=== PATIENT | female | born 1990 | race Caucasian/White ===

== ENCOUNTER 2018-01-24 16:13 | Emergency (ER) | payer MEDICAID, SELFPAY ==
[2018-01-24 16:14] VITALS: BP 131/93; PULSE 78; RESP 18; TEMP 36.8; O2SAT 100; BMI 23.2
[2018-01-24 16:43] VITALS: TEMP 37
--- NOTE | 2018-01-24 16:45 | ED.VISSUMM ---
- ER Visit Summary Date of Service: 01/24/18 Chief Complaint: Per mother dysuria, right flank pain with rash History of Present Illness: The patient is a 27 F who has history of MRDD, cerebral palsy on a portable ventilator was brought to the ER because of pain/discomfort with urination and left flank pain with red rash. Mother states her face being flushed is normal when she is anxious. History is limited since and is nonverbal and vent dependent. Past medical history UTI, pneumonia, cellulitis, cerebral palsy, MRDD, seizure disorder and pseudomembranous enterocolitis. Past surgical history remarkable for Mckeon rods, baclofen pump, TNA, G-tube and tracheostomy Physical Examination: Vital signs are marked for slight elevation blood pressure 131/93. Days has a cushingoid type appearance. She does have nystagmus. Pupils are enlarged and reactive. Kos is moist. TMs normal. Trach is in proper position. Lungs reveal no wheeze, rales or rhonchi. Heart is regular. Abdomen is soft and apparently nontender. She grimaces per mom when the left flank area was palpated. There is a warm erythematous rash. There is no induration, fluctuance appreciated. Neuro exam is limited. Test Results: CBC is normal. BMP is unremarkable. There is slight decrease in sodium and chloride of 1 3393 respectively. Glucose is slightly elevated at 116. UA is negative. Emergency Department Course and Treatment: A rectal temp was obtained and is 90.6. Concern she has cellulitis of her back and possible urinary tract infection. Cath urine was ordered and appropriate blood work to determine if patient will require admission versus outpatient treatment. Treatment Plan: Since patient does not have any service criteria. No she has cellulitis will treat with Septra suspension and discharge to home with follow-up with Dr. Bermudez in 2-3 days. Disposition: Discharged to home Impression: 1. Cellulitis left flank region 2. Dysuria of unknown etiology 3. History of MRDD 4. History of Propulsid 5. History of chronic respiratory failure on ventilator This note was generated with [employer] dictation software. It may contain incorrect words, spelling, and punctuation that were not noted in review of the chart prior to signing ED Disposition - Plan for ED Patient: Disposition: Home or Assisted Living Chief Complaint: Complaint Instructions: ED Dysuria Uncertain Cause, ED Infec Skin Cellulitis Prescriptions: Smz/Tpm Suspension [Bactrim Suspension 800-160mg/20ml] 20 ml PO BID #280 ml Phenazopyridine HCl [Pyridium] 200 mg GT TID #10 tab Referrals: Sandra Bermudez DO [Primary Care Provider] - 3-5 Days Additional Instructions: Lesa prescription was electronically transmitted to [facility], your preferred pharmacy
--- NOTE | 2018-01-24 16:48 | ED.DCSUM_ITS ---
- ER Visit Summary Date of Service: 01/24/18 Chief Complaint: Per mother dysuria, right flank pain with rash History of Present Illness: The patient is a 27 F who has history of MRDD, cerebral palsy on a portable ventilator was brought to the ER because of pain/ discomfort with urination and left flank pain with red rash. Mother states her face being flushed is normal when she is anxious. History is limited since and is nonverbal and vent dependent. Past medical history UTI, pneumonia, cellulitis, cerebral palsy, MRDD, seizure disorder and pseudomembranous enterocolitis. Past surgical history remarkable for Mckeon rods, baclofen pump, TNA, G- tube and tracheostomy Physical Examination: Vital signs are marked for slight elevation blood pressure 131/93. Days has a cushingoid type appearance. She does have nystagmus. Pupils are enlarged and reactive. Kos is moist. TMs normal. Trach is in proper position. Lungs reveal no wheeze, rales or rhonchi. Heart is regular. Abdomen is soft and apparently nontender. She grimaces per mom when the left flank area was palpated. There is a warm erythematous rash. There is no induration, fluctuance appreciated. Neuro exam is limited. Test Results: CBC is normal. BMP is unremarkable. There is slight decrease in sodium and chloride of 1 3393 respectively. Glucose is slightly elevated at 116. UA is negative. Emergency Department Course and Treatment: A rectal temp was obtained and is 90.6. Concern she has cellulitis of her back and possible urinary tract infection. Cath urine was ordered and appropriate blood work to determine if patient will require admission versus outpatient treatment. Treatment Plan: Since patient does not have any service criteria. No she has cellulitis will treat with Septra suspension and discharge to home with follow- up with Dr. Bermudez in 2-3 days. Disposition: Discharged to home Impression: 1. Cellulitis left flank region 2. Dysuria of unknown etiology 3. History of MRDD 4. History of Propulsid 5. History of chronic respiratory failure on ventilator This note was generated with [employer] dictation software. It may contain incorrect words, spelling, and punctuation that were not noted in review of the chart prior to signing ED Disposition - Plan for ED Patient: Disposition: Home or Assisted Living Chief Complaint: Complaint Instructions: ED Dysuria Uncertain Cause, ED Infec Skin Cellulitis Prescriptions: Smz/Tpm Suspension [Bactrim Suspension 800-160mg/20ml] 20 ml PO BID #280 ml Phenazopyridine HCl [Pyridium] 200 mg GT TID #10 tab Referrals: Sandra Bermudez DO [Primary Care Provider] - 3-5 Days Additional Instructions: Lesa prescription was electronically transmitted to [facility], your preferred pharmacy
[2018-01-24 16:57] LABS: Absolute Lymphocyte Count 1.52 X10^3/ul (0.83-4.51); Absolute Neutrophil Count 3.6 X10^3/uL (2.0-7.7); Basophil# 0.02 X10^3/uL; Basophil% 0.3 % (0-1); Eosinophils% 1.7 % (0-5); Hematocrit 39.9 % (37-47); Hemoglobin 13.5 g/dl (12.0-15.0); Lymphocyte # 1.52 X10^3/ul (4.0); Lymphocyte % 25.4 % (19-41); Mean Corp Hgb Conc 33.8 g/gl (32-36); Mean Corpuscular Volume 94.5 fL (81-99); Mean Platelet Vol. 10.7 fl (6.2-12.0); Monocyte# 0.74 X10^3/uL; Monocyte% 12.4 % (0-10); Neutrophil # 3.58 X10^3/uL (2.7-7.7); Neutrophil % 59.9 % (47-70); Platelet Count 202 K/mm3 (150-450); RBC Distribution Width SD 40.7 fl (35.1-43.9); Red Blood Count 4.22 M/mm3 (4.2-5.4)
[2018-01-24 16:58] LABS: POSITIVE COUNT NO; POSITIVE DIFFERENTIAL NO; POSITIVE MORPHOLOGY NO
[2018-01-24 17:04] LABS: Bacteria 0 SEEN /hpf (None Seen); Mucous, Urine 0 SEEN /hpf (<or=2+); White Blood Cells 0 SEEN /hpf (0-5)
[2018-01-24 17:15] LABS: Color, Urine Yellow (Yellow); Glucose, Dipstick 250 mg/dl (Normal); Ketone-Dipstick 5 mg/dl (Negative); Leukocyte Esterase-Dipstick Negative /ul (Negative); Nitrite-Dipstick Negative (Negative); Occult Blood-Urine Negative /ul (Negative); Protein-Dipstick Negative (Negative); Specific Gravity, Urine 1.015 (1.002-1.030); Urine Bilirubin Dipstick Negative (Negative); Urine Clarity Clear (Clear); Urine Urobilinogen Normal (Normal)
[2018-01-24 17:23] LABS: Red Blood Cells-Urine 0-5 SEEN /hpf (0-5); Squamous Epithelial Cells - UA 0-5 SEEN /hpf (5-10)
[2018-01-24 17:27] LABS: Anion Gap 8 (5-15); BUN 10 mg/dL (7-18); BUN/Creat Ratio 20.8 RATIO (10-20); Calcium,Total 9.2 mg/dL (8.5-10.1); Chloride 97 mmol/L (98-107); Creatinine, Serum 0.48 mg/dL (0.55-1.02); EST Glomerular Filtration Rate 164 mL/min (>60); Est Glom Filt Rate - Afr Amer 198 mL/min (>60); Estimated Creatinine Clearance 126.06 ml/min; Glucose 116 mg/dL (74-106); Potassium 4.3 mmol/L (3.5-5.1); Sodium Level 133 mmol/L (136-145)
[2018-01-24 18:15] VITALS: BP 130/64; PULSE 77; RESP 18; O2SAT 99
--- NOTE | 2018-01-24 18:33 | ED.RN ---
DR CRESPO NOTIFIED OF LACTIC RESULTS
[2018-01-24 19:10] VITALS: BP 117/63
[2018-01-24] MEDS: SMZ/TPM Suspension 23 ML GT (19:29)
[2018-01-24 21:55] LABS: Reflex Lactate? Y
== END 2018-01-24 20:56 | disposition home or self-care (01) ==
PROVIDERS: Emergency Provider Emergency Medicine; Family Provider Internal Medicine; PCP Internal Medicine
DX: L03.311 Cellulitis of abdominal wall (principal); R30.0 Dysuria; F79 Unspecified intellectual disabilities; J96.10 Chronic respiratory failure, unspecified whether with hypoxia or hypercapnia; G80.9 Cerebral palsy, unspecified; G40.909 Epilepsy, unspecified, not intractable, without status epilepticus; A04.72 Enterocolitis due to Clostridium difficile, not specified as recurrent; Z87.440 Personal history of urinary (tract) infections; Z79.51 Long term (current) use of inhaled steroids; Z79.899 Other long term (current) drug therapy
CPT/HCPCS: 51702; 80048; 81001; 83605; 85025; 99285; A4216

== ENCOUNTER 2018-07-25 09:00 | Outpatient (RCR) | payer MEDICAID, SELFPAY | END 2018-08-12 23:59 | LOC: NS 09:00 | PROVIDERS: Family Provider Internal Medicine; PCP Internal Medicine; Visit Provider Internal Medicine | DX: E11.9 Type 2 diabetes mellitus without complications (principal); Z71.3 Dietary counseling and surveillance | CPT/HCPCS: 97802; 97803 ==

== ENCOUNTER 2018-08-22 09:00 | Outpatient (RCR) | payer MEDICAID, SELFPAY ==
[2018-05-25 12:59] VITALS: BMI 23.2
--- NOTE | 2018-08-29 18:37 | NS ---
On 08/25/18 Mom reported Lsea seemed bloated with firmness in abdomen - private duty nurse held 6:00 p.m. Nourish enteral tube feeding providing instead a 320 cc water flush. On 08/26/18 Mom reported Lesa seemed better. Family made decision to return to previous enteral feeding NeoCate Jr. providing 290 mL over 1 hour via pump at 8:00 a.m., 12:00 noon and 4:00 p.m. also providing 300 mL water flushes between feedings bolus. Will meet with family mid September to discuss any future changes to increase dietary fiber. SMBG reported today: FBG 120 mg/dL and 2 hr pp 146-235 mg/dL Current insulin: Lantus 14 units in a.m. and p.m and 12 units Humalog before each of 3 feedings. Family continues to give pediatric liquid multivitamin. I stopped at family home this morning for home visit. No one answered door - called Mom's phone - no answer - RDN left. Mom called office several hours later reporting she was gone - had family emergency. We rescheduled home visit for 09/26/18. Abena Epperson, KAYLEN,LD,CDE
--- OUTSIDE RECORDS SUMMARY | 2018-10-08 11:17 | XMS RPT_ITS | Continuity of Care Document ---
:1990 Author Organization [facility] Address [address] [place] [address] Phone Care Team Providers Name Role Phone Sandra Bermudez DO Unavailable Flip Delgado Unavailable Lawrence Weiner Unavailable Abdirahman Valencia MD Unavailable KIMI Pineda Unavailable Unavailable Unavailable Unavailable Problems Name Dates Details Abnormal urine (R82.90, 791.9) Status: Active ALLERGIC RHINITIS DUE TO OTHER ALLERGEN (J30.89, 477.8) Comments: using benadryl. claritin doesnt help . try nasal spray Status: Active Amenorrhea (N91.2, 626.0) Status: Active Body mass index (BMI) 22.0-22.9, adult (Z68.22, V85.1) Status: Active Cerebral palsy (G80.9, 343.9) Status: Active Convulsions (R56.9, 780.39) Comments: neurologist: Dr Kebede, 1 year agodischarged her bc age and he is pediatric neuro-- now seeing DR Delgado Status: Active Current nonsmoker (Renamed from Current non-smoker) (Z78.9, V49.89) Status: Active Diabetes (E11.9, 250.00) Status: Active Encounter for screening for lipid disorder (Z13.220, V77.91) Status: Active Fatigue (R53.83, 780.79) Comments: Improvedfatigue improved after tretaing PNA and C diff, no more fatigue Status: Active History of cerebral palsy (Z86.69, V12.49) Status: Active History of respiratory acidosis (Z86.39, V12.29) Status: Active Hyperglycemia (R73.9, 790.29) Status: Active Irregular Menstrual Cycle (Renamed from Irregular bleeding) (N92.6, 626.4) Comments: no menstrual cycle in the last 2 months. Status: Active Lactic acid acidosis (E87.2, 276.2) Status: Active MH (mental handicap) (F79, 319) Comments: MR/CP Status: Active NEED FOR PROPHYLACTIC VACCINATION AND INOCULATION AGAINST INFLUENZA (V04.81) (Renamed from Need for prophylactic vaccination and inoculation against influenza) (Z23, V04.81) Status: Active Neuromuscular scoliosis (M41.40, 737.43) Status: Active Nutritional assessment (Z00.8, V72.85) Status: Active Paraplegia (G82.20, 344.1) Status: Active Pre-operative examination (Z01.818, V72.84) Status: Active Sore throat (J02.9, 462) Status: Active Therapeutic drug monitoring (Z51.81, V58.83) Status: Active Therapeutic drug monitoring (Z51.81, V58.83) Status: Active Thick sputum (R09.3, 786.4) Status: Active Tracheostomy status (Z93.0, V44.0) Status: Active Type II diabetes mellitus, well controlled (E11.9, 250.00) Status: Active Unspecified Diagnosis Status: Active Unspecified Diagnosis Status: Active Unspecified Diagnosis Status: Active Unspecified Diagnosis Status: Active Unspecified Diagnosis Status: Active Unspecified visual disturbance (H53.9, 368.9) Status: Active Vitamin D deficiency (E55.9, 268.9) Status: Active Medications Name Dates Details Acidophilus Oral Capsule 1 (one) Capsule qd via peg tube admin for 0 days Quantity: 30 {Capsule} Refills: 3 Ordered:04-Jul-2018 Karin Bermudez DO, DO, Kathleen Start : 04-Jul-2018 Active AeroChamber Mini Chamber Device 1 (one) Device Device uad for 0 days Quantity: 1 {Each} Refills: 0 Ordered:31-May-2017 Daisy Pineda LPN Start : 31-May-2017 Active Comments:use with her flovent Baclofen Powder 3 ml tid with tube feed for 90 days Quantity: 810 {Milliliter} Refills: 5 Ordered:14-Mar-2018 Karin Bermudez DO, DO, Kathleen Start : 14-Mar-2018 Active Comments:10mg/ml Blood Glucose Monitor System w/Device Kit 1 (one) Kit Kit uad for 0 days Quantity: 1 {Box} Refills: 0 Ordered:10-Jun-2018 Daisy Pineda LPN Start : 10-Jun-2018 Active Comfort Lancets Miscellaneous 1 (one) Misc Misc bid for 0 days Quantity: 1 {Box} Refills: 12 Ordered:10-Jun-2018 Daisy Pineda LPN Start : 10-Jun-2018 Active DiazePAM 1 MG/ML Oral Solution 5 Milliliter bid and 7ml q hs for 0 days Quantity: 500 {Milliliter} Refills: 5 Ordered:04-Jul-2018 Karin Bermudez DO, DO, Kathleen Start : 04-Jul-2018 Active EasyGluco Plus In Vitro Strip 1 (one) Strip Strip bid for 30 days Quantity: 100 {Strip} Refills: 11 Ordered:13-Jun-2018 Daisy Pineda LPN Start : 13-Jun-2018 Active Comments:healthpro test strips Flovent HFA 44 MCG/ACT Inhalation Aerosol 2 puffs Aerosol twice daily via trach for 0 days Quantity: 1 {Inhaler} Refills: 6 Ordered:30-Mar-2018 Karin Bermudez DO, DO, Kathleen Start : 30-Mar-2018 Active Fluticasone Propionate 50 MCG/ACT Nasal Suspension 2 (two) [employer]) each nostril qd for 90 days Quantity: 1 {QS} Refills: 3 Ordered:16-Sep-2017 Karin Bermudez DO, DO, Kathleen Start : 16-Sep-2017 Active HumaLOG KwikPen 100 UNIT/ML Subcutaneous Solution Pen-injector 12 Unit with meals for 30 days Quantity: 1 {Pre-filled_Pen_Syringe} Refills: 5 Ordered:08-Aug-2018 Fast DO Jennifer A Start : 08-Aug-2018 Active Lantus SoloStar 100 UNIT/ML Subcutaneous Solution Pen-injector 12 Unit bid for 30 days Quantity: 1 {Box} Refills: 3 Ordered:08-Aug-2018 Jennifer Silvestre DO Start : 08-Aug-2018 Active Miconazole Nitrate 2 % External Cream 1 (one) Cream Cream three times daily for 10 days Quantity: 1 {Tube} Refills: 1 Ordered:14-May-2016 Daisy Pineda LPN Start : 14-May-2016 Active Multivitamin+ Oral Liquid 1 (one) Milliliter qd for 0 days Quantity: 1 {Milliliter} Refills: 12 Ordered:28-Jul-2018 Daisy Pineda LPN Start : 28-Jul-2018 Active Comments:give proper dosing for weight NAPHCON-A, 0.025-0.3% (Ophthalmic Solution) 1-2 gtt gtt up to qid prn for redness/itching for 0 days Quantity: 1 {Each} Refills: 0 Ordered:20-Jan-2016 Linda Houston MD Start : 20-Jan-2016 Active Nyamyc 489769 UNIT/GM External Powder uad Powder to affected area(s) bid and prn for 0 days Quantity: 15 {Bottle} Refills: 6 Ordered:19-Nov-2017 Karin Bermudez DO, DO, Kathleen Start : 19-Nov-2017 End : 17-Nov-2013 Active Nystatin 045863 UNIT/GM External Cream uad Cream to affected area(s) bid prn for 7 days Quantity: 1 {Bottle} Refills: 3 Ordered:03-Jun-2018 Karin Bermudez DO, DO, Kathleen Start : 03-Jun-2018 Active Nystatin 189933 UNIT/ML Mouth/Throat Suspension 5 ml ml 5 times day for 10 days Quantity: 250 {Milliliter} Refills: 9 Ordered:03-Apr-2016 Jessica Almanza LPN Start : 03-Apr-2016 Active Nystatin Powder 1 Powder Powder tid for 10 days Quantity: 1 {Bottle} Refills: 3 Ordered:28-Jun-2017 Karin Bermudez DO, DO, Kathleen Start : 28-Jun-2017 Active Pen Lubec 31G X 5 MM Miscellaneous 1 (one) Misc 5 times a day for 0 days Quantity: 150 {Each} Refills: 11 Ordered:04-Jul-2018 Karin Bermudez DO, DO, Kathleen Start : 04-Jul-2018 Active Comments:ufine SODIUM CHLORIDE, 2.5MEQ/ML (Injection Solution) uad Solution Solution 6ml prn with secretions for 0 days Quantity: 2 {Box} Refills: 6 Ordered:02-Aug-2015 TIMBO Villegas Start : 02-Aug-2015 Active Trileptal 300 MG/5ML Oral Suspension 9 Milliliter bid for 0 days Quantity: 500 {Milliliter} Refills: 5 Ordered:30-Mar-2018 Karin Bermudez DO, DO, Kathleen Start : 30-Mar-2018 Active True Metrix Blood Glucose Test In Vitro Strip 1 (one) Strip qid for 0 days Quantity: 150 {Strip} Refills: 5 Ordered:15-Jul-2018 Daisy Pineda LPN Start : 15-Jul-2018 Active True Metrix Meter Device 1 (one) Device uad for 0 days Quantity: 1 Kit Refills: 0 Ordered:15-Jul-2018 Daisy Pineda LPN Start : 15-Jul-2018 Active VITAMIN D3, 1000UNIT (Oral Tablet) 1 Tablet Tablet qd for 0 days Quantity: 30 {Tablet} Refills: 6 Ordered:21-Mar-2015 Jessica Almanza LPN Start : 22-May-2013 Active Xopenex 1.25 MG/3ML Inhalation Nebulization Solution 3 ml plus 6-12 ml NS Nebulized Soln tid via IPV macine) for 0 days Quantity: 2 {Box} Refills: 6 Ordered:02-May-2018 Karin Bermudez DO, DO, Kathleen Start : 02-May-2018 Active Comments:has tried and failed albuterol so waiting on PA response - it was initiated AMLODIPINE BESYLATE, 5MG (Oral Tablet) 1 (one) Tablet Tablet qd for 0 days Quantity: 30 {Tablet} Refills: 0 Ordered:02-Aug-2015 TIMBO Villegas Start : 17-Nov-2013 End : 02-Aug-2015 Inactive AMOXICILLIN, 250MG/5ML (Oral Suspension Reconstituted) 10ml For Suspension tid for 10 days Quantity: 30 {For_Suspension} Refills: 0 Ordered:14-Jan-2012 TIMBO Villegas Start : 23-Jun-2011 End : 14-Jan-2012 Inactive AUGMENTIN ES-600, 600-42.9MG/5ML (Oral Suspension Reconstituted) 5 cc For Suspension tid for 10 days for 0 days Refills: 0 Ordered:17-Jun-2009 TIMBO Villegas End : 22-Aug-2009 Inactive CIPRO HC, 0.2-1% (Otic Suspension) 3 drop(s) BID, each ear for 7 days Quantity: 1 {Bottle(s)} Refills: 0 Ordered:03-Mar-2013 Linda Houston MD Start : 20-Feb-2013 End : 27-Feb-2013 Inactive CIPRO, 500 MG/5ML(10%) (Oral Suspension Reconstituted) For Suspension 5cc bid for 14 days for 14 days Refills: 0 Ordered:13-Jun-2009 Linda Houston MD Start : 13-Jun-2009 End : 15-Aug-2009 Inactive CIPRO, 500 MG/5ML(10%) (Oral Suspension Reconstituted) 5 ml For Suspension BID via PEG tube for 10 days Quantity: 100 {Milliliter} Refills: 0 Ordered:11-Nov-2015 Alanastephanie VICKIELiliam Start : 11-Nov-2015 End : 21-Nov-2015 Inactive CIPRO, 500MG (Oral Tablet) 1 (one) Tablet bid, crush and give via peg tube for 0 days Quantity: 20 {Tablet} Refills: 0 Ordered:20-Jan-2016 TIMBO Villegas Start : 04-Dec-2015 End : 20-Jan-2016 Inactive Ciprofloxacin HCl 0.2 % Otic Solution 0.25 Milliliter in ear Q 12h x 7 days for 7 days Quantity: 4 {Milliliter} Refills: 0 Ordered:17-Mar-2018 Daisy Abrams Start : 17-Mar-2018 End : 24-Mar-2018 Inactive CULTURELLE (Oral Capsule) 1 (one) Capsule qd for 30 days Quantity: 30 {Capsule} Refills: 0 Ordered:23-Mar-2016 Roe Baxter MD Start : 12-Feb-2016 End : 13-Mar-2016 Inactive CULTURELLE, 10B CELL (Oral Capsule) 1 Capsule bid for 14 days Quantity: 28 {Capsule} Refills: 0 Ordered:25-Jun-2010 TIMBO Villegas Start : 25-Jun-2010 End : 09-Jul-2010 Inactive Diflucan 100 MG Oral Tablet 1 (one) Tablet qd for 7 days Quantity: 7 {Tablet} Refills: 0 Ordered:29-May-2016 Faby Reid Start : 29-May-2016 End : 05-Jun-2016 Inactive DIFLUCAN, 40MG/ML (Oral Suspension Reconstituted) 1 For Suspension 100 mg down PEG daily for 3 days for 0 days Refills: 0 Ordered:17-Nov-2013 TIMBO Villegas Start : 18-May-2013 End : 17-Nov-2013 Inactive DIOCTO, 60MG/15ML (Oral Syrup) Syrup 5 cc bid and prn for 0 days Quantity: 540 {Syrup} Refills: 5 Ordered:13-Jun-2009 TIMBO Villegas Start : 13-Jun-2009 Inactive ERYTHROMYCIN, 5MG/GM (Ophthalmic Ointment) uad Ointment to affected eye(s) tid prn for 0 days Quantity: 1 {Ointment} Refills: 1 Ordered:17-Nov-2013 TIMBO Villegas Start : 31-Jul-2013 End : 17-Nov-2013 Inactive FLAGYL, 500MG (Oral Tablet) 1 Tablet tid for 10 days Quantity: 30 {Tablet} Refills: 0 Ordered:11-Jul-2013 Linda Houston MD Start : 11-Jul-2013 End : 21-Jul-2013 Inactive Fluconazole 150 MG Oral Tablet 1 (one) Tablet Tablet qd per G-Tube for 1 days Quantity: 1 {Tablet} Refills: 0 Ordered:21-May-2016 Roe Baxter MD Start : 21-May-2016 End : 22-May-2016 Inactive FURADANTIN, 25MG/5ML (Oral Suspension) 10 Milliliter qid for 7 days Refills: 0 Ordered:26-Feb-2010 Liliam Montalvo CNP Start : 19-Feb-2010 End : 26-Feb-2010 Inactive Comments:QS KETOCONAZOLE, 2% (External Cream) apply to skin rash 1-2 times daily prn for 0 days Refills: 0 Ordered:23-Jun-2011 Long S[employer]IOR SUSTAINABILITY CONSULTANT, Jessica L End : 23-Jun-2011 Inactive LevoFLOXacin 25 MG/ML Oral Solution 1 (one) Solution 500mg daily for 7 days Quantity: 3500 {Milligram} Refills: 0 Ordered:17-Feb-2017 Liliam Montalvo CNP Start : 17-Feb-2017 End : 24-Feb-2017 Inactive LIDOCAINE, 5% (External Ointment) Ointment uad for 0 days Quantity: 1 {Ointment} Refills: 3 Ordered:14-Jan-2012 TIMBO Villegas Start : 13-Jun-2009 End : 14-Jan-2012 Inactive LUNESTA, 1MG (Oral Tablet) 1 qd (crushed or dissolved) for 0 days Refills: 0 Ordered:23-Jun-2011 Long SENIOR SUSTAINABILITY CONSULTANT, Jessica L End : 23-Jun-2011 Inactive MUCINEX FOR KIDS, 100MG/5ML (Oral Liquid) Liquid 15 cc tid 14 days for 0 days Refills: 0 Ordered:23-Jun-2011 Long SENIOR SUSTAINABILITY CONSULTANT, Jessica L Start : 13-Jun-2009 End : 23-Jun-2011 Inactive MUCOMYST-10, 10% (Inhalation Solution) 1 Solution bid/prn for 0 days Refills: 3 Ordered:18-Jun-2009 TIMBO Villegas Start : 18-Jun-2009 Inactive NASACORT ALLERGY 24HR, 55MCG/ACT (Nasal Aerosol) 2 (two) Aerosol Aerosol each nostril qd for 0 days Quantity: 1 {Each} Refills: 3 Ordered:10-Jul-2015 TIMBO Villegas Start : 09-Mar-2014 End : 10-Jul-2015 Inactive NASACORT ALLERGY 24HR, 55MCG/ACT (Nasal Aerosol) 2 (two) Aerosol Aerosol each nostril qd for 0 days Quantity: 1 {Each} Refills: 3 Ordered:10-Jul-2015 TIMBO Villegas Start : 09-Mar-2014 End : 10-Jul-2015 Inactive PENLAC, 8% (External Solution) uad brush on rt. great toe every day for 0 days Refills: 0 Ordered:14-Jan-2012 TIMBO Villegas End : 14-Jan-2012 Inactive Comments:1 hour after bath Probiotic Childrens Oral Packet 1 (one) Packet prn for 30 days Quantity: 30 {Packet} Refills: 2 Ordered:15-May-2016 Long S[employer]IOR SU[employer]AINABILITY CONSULTANT, Jessica L Start : 14-May-2016 End : 15-May-2016 Inactive SOOTHE XP (Ophthalmic Solution) uad Applicatorful Applicatorful as needed to affected area(s) for 90 days Refills: 3 Ordered:20-Jan-2016 TIMBO Villegas Start : 08-Nov-2014 End : 20-Jan-2016 Inactive Comments:Medication taken as needed. Sulfamethoxazole-Trimethoprim 200-40 MG/5ML Oral Suspension 1 (one) Suspension 20 ml BID for 5 days Quantity: 1 {Bottle} Refills: 0 Ordered:21-May-2016 Roe Baxter MD Start : 21-May-2016 End : 26-May-2016 Inactive TAMIFLU, 6MG/ML (Oral Suspension Reconstituted) 1 (one) For Suspension 75 mg down PEG tube daily for 10 days for 10 days Quantity: 10 {Fluid_Ounce} Refills: 0 Ordered:27-Dec-2014 Linda Houston MD Start : 27-Dec-2014 End : 06-Jan-2015 Inactive Tresiba FlexTouch 100 UNIT/ML Subcutaneous Solution Pen-injector 1 (one) Unit qd for 0 days Quantity: 1 {Box} Refills: 5 Ordered:10-Jun-2018 Daisy Pineda LPN Start : 08-Jun-2018 End : 10-Jun-2018 Inactive Comments:5 u VITAMIN D, 2000UNIT (Oral Tablet) 1 (one) Tablet Tablet qd for 30 days Quantity: 30 {Tablet} Refills: 3 Ordered:10-Jul-2015 TIMBO Villegas Start : 20-Dec-2014 End : 10-Jul-2015 Inactive BACLOFEN, 0.05MG/ML (Intrathecal Solution) uad on a 24 hour pump for 0 days Refills: 0 Ordered:14-Jan-2012 TIMBO Villegas End : 14-Jan-2012 Discontinued Comments:This order discontinued per [facility]. FLONASE, 50MCG/ACT (Nasal Suspension) 2 (two) spray spray each nostril qd for 0 days Quantity: 1 {[employer]} Refills: 3 Ordered:09-Apr-2015 Linda Houston MD Start : 09-Apr-2015 End : 20-Jan-2016 Discontinued Comments:This order discontinued per [employer]. MUCOMYST, 20% (Inhalation Solution) 1 bid/prn for 0 days Refills: 0 Ordered:23-Jun-2011 Long SENIOR SUSTAINABILITY CONSULTANT, Jessica L End : 23-Jun-2011 Discontinued Comments:This order discontinued per [employer]. VYTONE, 1-1% (External Cream) Cream bid for 0 days Quantity: 1 {Cream} Refills: 3 Ordered:13-Jun-2009 Long SENIOR SUSTAINABILITY CONSULTANT, Jessica L Start : 13-Jun-2009 End : 23-Jun-2011 Discontinued Comments:This order discontinued per [employer]. Allergies and Adverse Reactions Name Dates Details Milk (Allergy) Status: Active Miralax (Allergy) Status: Active Nafcillin (Allergy) Status: Active soy (Allergy) Status: Active Tincture of Benzoin (Allergy) Status: Active Tobramycin Sulfate *AMINOGLYCOSIDES* (Allergy) Status: Active Comments: turned beet red Past Medical History Name Dates Details Acute bronchitis (J20.9, 466.0) Status: Inactive as of 09-Mar-2014 Acute renal failure (N17.9, 584.9) Comments: 05-25 when in hospital and will get report see nephro recheck labs now because faitgue Status: Inactive as of 09-Mar-2014 Backache (M54.9, 724.5) Status: Inactive as of 09-Mar-2014 C. difficile diarrhea (A04.72, 008.45) Comments: Vancomycin last day tiodayImprovedadmisiin from 01/28/2016 to 01/31/2016 for PNA, C diff , rhinovirus, sepsisStill some lose stoold but better now, always has a smear in her briefStools one- two /day,miss a couple of day, doesnt smell like C dif , no abdominal pain, no fever Status: Inactive as of 06-Jun-2018 Cellulitis of back (L03.312, 682.2) Comments: resovled -today was last day of oral antibiotic from ER Status: Inactive as of 06-Jun-2018 Cellulitis of groin, right (L03.314, 682.2) Comments: Cultures and BactrimH/o MRSA Status: Inactive as of 06-Jun-2018 Constipation (K59.00, 564.00) Status: Inactive as of 14-Jan-2012 Cystitis, acute (N30.00, 595.0) Status: Inactive as of 09-Mar-2014 Diarrhea (R19.7, 787.91) Comments: had cdiff in past Status: Inactive as of 09-Mar-2014 Diarrhea (R19.7, 787.91) Comments: off milk and soy. treated cdiff on probiotic if sconitnue diarrhea check wtih dietary to changing.continues with liquid stools November, December and January Status: Inactive as of 06-Jun-2018 Dysuria (R30.0, 788.1) Status: Inactive as of 20-Jan-2016 Ear pain (H92.09, 388.70) Status: Inactive as of 09-Mar-2014 Enterocolitis due to Clostridium difficile (A04.7, 008.45) Status: Resolved as of 14-Jan-2012 Exposure to influenza (Z20.828, V01.79) Status: Inactive as of 02-Aug-2015 Eye drainage (379.93) Comments: clear drainage and now chalazion. alot puffiness Status: Inactive as of 02-Aug-2015 Fungal infection of the groin (B35.6, 110.3) Comments: Pat dryCut pillow cases and put in folds to absorb moisture.Miconazole BID x7 dayFluconazole qdIf symptoms dont improve in the next 2-3 days, call us and will refer to wound careRash on bottom in glutea l folds, deep cuts, since april, sometimes bleed.Was using nystatin powder , stopped using it a month ago.No feverH/o MRSA Status: Inactive as of 06-Jun-2018 Hypertension (I10, 401.9) Status: Resolved as of 02-Aug-2015 Infantile cerebral palsy, unspecified (343.9) Status: Inactive as of 09-Mar-2014 Otitis externa (H60.90, 380.10) Status: Inactive as of 06-Jun-2018 Otitis media, acute (H66.90, 382.9) Status: Inactive as of 06-Jun-2018 Pain in a tooth or teeth (K08.89, 525.9) Comments: back right teeth workign with dentist ? teeth grinding cause. mother hears this ? bite guard. 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 Status: Inactive as of 09-Mar-2014 Sepsis (A41.9, 038.9) Status: Inactive as of 27-Jan-2017 Streptococcus pneumoniae (A49.1, 041.2) Comments: Levaquin while in hospital, now improvedreviewed ED notes and dkscharge summary from the hospital01/27, EDCXR: PNATrouble breathing, fever 101.4, HR elevated, BP 144/94, RR 27Secretion clear and white, l ungs, around tracheostomy lots of secretionNo more SOB, secretions gone down, always drools Status: Inactive as of 06-Jun-2018 Swelling (R60.9, 782.3) Status: Inactive as of 02-Aug-2015 Thrombocytopenia, unspecified (D69.6, 287.5) Status: Inactive as of 09-Mar-2014 Thrush (B37.0, 112.0) Status: Inactive as of 02-Aug-2015 Thrush, oral (B37.0, 112.0) Status: Inactive as of 06-Jun-2018 Unspecified bacterial pneumonia (J15.9, 482.9) Status: Inactive as of 09-Mar-2014 Unspecified Diagnosis Status: Inactive as of 02-Jul-2015 Unspecified Diagnosis Status: Inactive as of 02-Jul-2015 Unspecified Diagnosis Status: Inactive as of 20-Jan-2016 Unspecified Diagnosis Status: Inactive as of 09-Mar-2014 Unspecified Diagnosis Status: Inactive as of 02-Jul-2015 UTI (urinary tract infection) (N39.0, 599.0) Status: Inactive as of 20-Jan-2016 Procedures Procedure Dates Details BACK, NOS Completed Comments: Surgery 05-09-03 Spinal fusion EYE, NOS Completed Comments: Straightening G-tube Completed MITCHELL and Juan R procedure 11/2002 Completed HIP, NOS Completed Comments: Surgery Tracheostomy 11/2002 Completed Date Value Details 25-May-2018 Pulmonary Visit Report Result: Comments: See Note; NOTES: Pulmonary Medicine [place] [address] [place] [address] OFFICE VISIT Date of Service: 05/25/18 MR#: [id number] Acct: [id number] Name: MANDY MONTERO Rep #: [id number] : 1990 Provider: Lawrence Weiner MD Age/Sex: 28/F Location: [facility] Status: Signed Assessment AND Plan Problems 1. Chronic respiratory failure with hypoxia J96.11 2. 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 Acute allergic rhinitis due to pollen, unspecified seasonality J30.1 Plan Patient overall appears to be at her baseline. Patient does have some increased nasal secretions, but this may be related to allergies. Patient has no pain or rhonchi on exam at this time. Signs and symptoms of decompensation and sick policy were reviewed and mother reported bin jean Will continue with current aerosol therapies. Patient does use IPPV for pulmonary toileting with good effect. No indication for ABG or vent changes at this time. Did discuss with the mother and cultu res can be obtained if patient is thought to be sick. Patient has grown Pseudomonas in the past and does run the risk of developing resistances. No previous resistance to ciprofloxacin or Levaquin is kn own. Continue current mechanical ventilation and treatment plan. Medications New: Refilled: Plan Detail Follow Up 6 Months (BWA) HPI 6 M FU: Chief Complaint: Increased secretions Details: Patient is a 28-year-old female, currently in the care of Dr. Bermudez, who presents for evaluation secondary to increased secretions. Since last visit, patient denies any ER visits, hospitalizations or prednisone burst. Patient does present with her mother and healthy. Patient is nonverbal and so all of history is from her mother. Overall, patient has been doing well. Mother has noted increased se cretions recently, but states this is typical for her this time of year. Secretions are described as thick and green. Patient does have good response to Mucinex therapy. Patient has not been running any fevers, chills, nausea or vomiting. Patient tolerating tube feeds without difficulty. Patient has remained on the same vent settings and has not had any problems with mucus plugging or hemoptysis. Frances ent does have some thick secretions noted from the nares. Patient overall appears to be doing well from her palpate standpoint. No decubitus ulcers or other complications are noted. No change in adilson mendoza's aerosol regimen. Intake Vital Signs05/25/18 Height 4 ft 7 in 05/25/18 Weight: 45.359 kg Intake Visit Reasons: 6 M FU Accompanied by: Family / Other Allergies linezolid Allergy (Severe, Verified 05/25/18 13:00) Other - seizure AND coma vancomycin Allergy (Severe, Verified 05/25/18 13:00) Other - kidney failure tobramycin Allergy (Intermediate, Verified 05/25/18 13:00) Other - turned be et red nafcillin Allergy (Mild, Verified 05/25/18 13:00) Rash benzoin Allergy (Unknown, Verified 05/25/18 13:00) Unknown milk Allergy (Unknown, Verified 05/25/18 13:00) Unknown soy Allergy (Unk nown, Verified 05/25/18 13:00) Unknown polyethylene glycol 3350 [From Miralax] Adverse Reaction (Unknown, Verified 05/25/18 13:00) Unknown Medications Baclofen [Lioresal] 30 mg GT TID 09/02/13 [Histo ry Confirmed 05/25/18] diazepam 5 mg/mL oral concentrate 5 mg PO BID ml 08/28/17 [History Confirmed 05/25/18] diazepam 5 mg/mL oral concentrate 7 mg PO QHS ml 08/28/17 [History Confirmed 05/25/18] oxcar bazepine 300 mg/5 mL (60 mg/mL) oral suspension 540 mg PO BID ml 08/28/17 [History Confirmed 05/25/18] guaifenesin 200 mg/5 mL oral liquid 200 mg PO Q4H PRN #473 ml 12/09/17 [Rx Confirmed 05/25/18] Phen azopyridine HCl [Pyridium] 200 mg GT TID #10 tab 01/24/18 [Rx Confirmed 05/25/18] Smz/Tpm Suspension [Bactrim Suspension 800-160mg/20ml] 20 ml PO BID #280 ml 01/24/18 [Rx Confirmed 05/25/18] cetirizine 1 mg/mL oral solution 10 mg PO QDAY PRN #480 ml 04/11/18 [Rx Confirmed 05/25/18] fluticasone 44 mcg/actuation HFA aerosol inhaler 2 inh INHALATION .COMPLEX #10.6 g 05/25/18 [Rx Confirmed 05/25/18] leval buterol 1.25 mg/3 mL solution for nebulization 1.25 mg INHALATION .COMPLEX #144 ml 05/25/18 [Rx Confirmed 05/25/18] PFSH Medical History Pneumonia (Re solved) Cerebral palsy (Chronic) Seizure (Chronic) Severe sepsis (Resolved) C. 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) Paraplegia (Chronic) Spastic hemiplegic cerebral palsy (Chronic) Vitamin D deficiency (Chronic) Streptococcus pneumoniae (Resolved) Mota rgical History Gastrostomy tube in place (Chronic) Presence of intrathecal baclofen pump (Chronic) Tracheostomy status (Chronic) rods to back (Chronic) H /O spinal fusion (Resolved) Status post Jorje fundoplication (Resolved) derotatox ostomies (Resolved) eyes straightened (Resolved) surgery on gland under tongue (Resolved) tendonatomies (Resolved) So cial History Smoking Status: Never smoker second hand exposure: No alcohol intake: never substance use type: does not use Review of Systems Const CONSTITUTIONAL: Negative anorexia, body ache, ch ills, daytime sleepiness, fever(s), night sweats, oral thrush, stops breathing during sleep, weight loss, sleeping in chair, fatigue, weight loss, weight gain, frequent colds, seasonal allergies, other, headache(s) or orthopnea EETM Ear Nose Throat Mouth: Positive hearing normal and swallowing Difficulty; negative hard of hearing, hoarseness, dry mouth in morning, change in vision, itchy eyes, eye clayton n, ear pain, nose bleed, mouth pain, nasal congestion, nasal discharge, post nasal drip, sinus pain, sinus pressure, sore throat, other or headache(s) Cardio Cardiovascular: Negative chest pain, chest p ain at rest, chest pain with activity, irregular heart rhythm, edema, palpitations, murmur, other or shortness of breath when lying down Resp Respiratory: Positive as per HPI and cough cough: Positive p roductive color: Positive thick, white and clear; negative shortness of breath, pain with cough, wheezing, chest congestion, chest tightness, pain on inspiration, inhalers, increase use of rescue inhale rs, snoring, apnea or other Gastro Gastrointestional: Negative bloody stools, change in appetite, difficulty swallowing, reflux, hematemesis, melena stool, loose stool, constipation or other Genitour inary: Negative blood in urine, nocturia, pain with urination or other Musc Musculoskeletal: Negative body pain, back pain, neck pain or other Skin/Breast Skin/Breast: Negative dry skin, itching, rash, unusual bruising, breast lump or other Neuro Neurological: Negative restless legs, confusion, weakness or other Psych Psychocological: Negative abnormal sleep pattern, anxiety, thoughts of hurting self/ others, hopelessness or other Lymph Lymphatic: Negative easy bleeding, easy bruising, swollen lymph nodes or other Exam Const Constitutional: Positive cooperative, in no acute respiratory distress, he althy appearing, well nourished, good hygiene and appears older than stated age Patient with spastic quadriplegia. No significant change from previous evaluation. Patient has good vent synchrony noted. Head Head: Positive atraumatic and microcephalic; negative cyanosis of lips/distal nose, frontal sinus tenderness or maxillary sinus tenderness Eyes Eye: Positive clear conjunctiva; negative nystagmus, scleral abnormality or cataract present Ears Ear: Positive hearing normal and external ears normal; negative hard of hearing Nose Nose: Positive external nose normal, septum normal and clear nasal disch arge; negative epistaxis or nasal polyp Mouth Mouth: Negative post nasal drip Mallampati Score: II: Mallampati Score Gingival hyperplasia noted. No thrush is noted. Macroglossia. Crowded posterior phary nx. Neck Neck: Positive normal visual inspection, full ROM and trachea midline; negative lymphadenopathy or JVD Trach is clean, dry and intact. Chest Wall Chest: Positive normal inspection of the chest and symmetric chest movement; negative crepitus or tenderness Resp lung sounds: Positive clear to auscultation, good air exchange and dullness to percussion; negative wheezes, rhonchi, rales, use of acc essory muscles or wheeze present on forced exhalation Mechanical breath sounds noted. Good vent synchrony. Cardio Cardiac: Positive regular rate, regular rhythm, S1 normal and S2 normal; negative murmur , rub or gallop GI GI: Positive normal to inspection and normal bowel sounds; negative distended, ascites or epigastric tenderness Genitourinary: Positive deferred Musc Musculoskeletal: Positive usin g an assistive device for ambulation; negative kyphosis or scoliosis Patient currently on a stretcher Skin Pulmonary Skin Exam: Positive intact; negative rash, lesion, ulcers, erythema or dermal atrophy Pulses Pulse: Yes radial pulses present Extremities Extremities: Yes capillary refill normal, No clubbing, No cyanosis, No edema Spastic quadriplegia of all extremities. Neuro No significant change com pared to previous evaluation. 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 Cerebral palsy type: spastic quadriplegic Acute allergic rhinitis due to pollen, unspecified seasonality J30.1 Allergic rhinitis seasonality: unspecified seasonality Allergic rhinitis trigger: pollen Chronicity: acute 05/25/18 1337 <Electronically signed by Lawrence Weiner MD> Date Lawrence palomo MD Cosigner Signature: Date (if applicable) CC: Sandra Berumdez DO 24-Jan-2018 Emergency Department Summary Result: Comments: See Note; NOTES: [facility] Medical Records Department [address] [place] [address] Emergency Department Summary 01/24/18 1645 MR#: [id number] Acct: [id number] Name: MANDY MONTERO Rickey Rep #: [id number] : 1990 27 From: Stephan Hughes MD PCP: Sandra Bermudez DO Status: REG ER - ER Visit Summary Date of Service: 01/24/18 Chief Complaint: Per mother dysuria, right flan k pain with rash History of Present Illness: The patient is a 27 F who has history of MRDD, cerebral palsy on a portable ventilator was brought to the ER because of pain/discomfort with urination and l eft flank pain with red rash. Mother states her face being flushed is normal when she is anxious. History is limited since and is nonverbal and vent dependent. Past medical history UTI, pneumonia, cell ulitis, cerebral palsy, MRDD, seizure disorder and pseudomembranous enterocolitis. Past surgical history remarkable for Mckeon rods, baclofen pump, TNA, G- tube and tracheostomy Physical Examinatio n: Vital signs are marked for slight elevation blood pressure 131/93. Days has a cushingoid type appearance. She does have nystagmus. Pupils are enlarged and reactive. Kos is moist. TMs normal. Trach is in proper position. Lungs reveal no wheeze, rales or rhonchi. Heart is regular. Abdomen is soft and apparently nontender. She grimaces per mom when the left flank area was palpated. There is a warm shiloh thematous rash. There is no induration, fluctuance appreciated. Neuro exam is limited. Test Results: CBC is normal. BMP is unremarkable. There is slight decrease in sodium and chloride of 1 3393 respec tively. Glucose is slightly elevated at 116. UA is negative. Emergency Department Course and Treatment: A rectal temp was obtained and is 90.6. Concern she has cellulitis of her back and possible urina ry tract infection. Cath urine was ordered and appropriate blood work to determine if patient will require admission versus outpatient treatment. Treatment Plan: Since patient does not have any service criteria. No she has cellulitis will treat with Septra suspension and discharge to home with follow-up with Dr. Bermudez in 2-3 days. Disposition: Discharged to home Impression: 1. Cellulitis left [facility] region 2. Dysuria of unknown etiology 3. History of MRDD 4. History of Propulsid 5. History of chronic respiratory failure on ventilator This note was generated with [employer] dictation software. It m ay contain incorrect words, spelling, and punctuation that were not noted in review of the chart prior to signing ED Disposition - Plan for ED Patient: Disposition: Home or Assisted Living Chief Comp laint: Complaint Instructions: ED Dysuria Uncertain Cause, ED Infec Skin Cellulitis Prescriptions: Smz/Tpm Suspension [Bactrim Suspension 800-160mg/20ml] 20 ml PO BID #280 ml Phenazopyridine HCl [Pyr idium] 200 mg GT TID #10 tab Referrals: Sandra Bermudez DO [Primary Care Provider] - 3-5 Days Additional Instructions: Mandy prescription was electronically transmitted to [facility], your [facility] What to do if you have Problems For any increased pain, shortness of breath, bleeding, nausea or vomiting, chest pain, or any unexpected problems, contact your Primary Care Provider. Call [facility] ([phone]) or report to the closest Emergency Room. Call 911 if necessary. 01/24/18 4339 <Electronically signed by Stephan Hughes MD> Date Stephan Hughes MD Cosigner Signature (If Indicated): Date CC: Sandra Bermudez DO 10-Dec-2017 Pulmonary Visit Report Result: Comments: See Note; NOTES: [facility] [address] [place] [address] OFFICE VISIT Date of Service: 12/09/17 MR#: [id number] Acct: [id number] Name: MANDY MONTERO Rep #: [id number] : 1990 Provider: Lawrence Weiner MD Age/Sex: 27/F Location: [facility].PM[facility] Status: Signed Assessment AND Plan 1. Chronic respiratory failure with hypoxia J96.11 Plan Patient yaakov ears to be doing well on current settings. No indication for ABG or chest imaging at this time. We will continue with aggressive pulmonary toileting. Did discuss with the mother about the use of vest th erapy if IPPV becomes ineffective. Patient's mother voiced understanding. Continue current settings 2. 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 No signs or symptoms of complications at this time. Continue with aggressive primary prevention measures. No plans for decannulation or change in tra ch size. Continue current therapy Plan Detail Other Medications Refilled: HPI 3 M FU: Chief Complaint: Routine follow-up Details: Patient is a 27-year-old female, currently under the care of Dr. Bermudez, who presents for evaluation secondary to chronic respiratory failure and routine follow-up. Since last visit, patient denies any ER visits, hospitalizations or prednisone burst. Patient 's nurse and mother report improved response to the addition of guaifenesin. Patient has had much less thick secretions allowing for better pulmonary toileting. Patient's mother did report one episode of decreased saturations on chronic vent settings with increased heart rate. These resolved with suctioning prior to the nurses arrival. Patient did not require any transfer to the emergency room for ev aluation. Patient's mother denies any acute illness over the interim requiring antibiotics. Nursing reports no concerns about patient's current ventilator settings. Patient continues to have clear to w freddy sputum. Patient does have oral secretions that are unchanged from baseline. No significant dental issues, trach issues or superficial skin wounds have been reported. Patient is nonverbal and unabl e to provide any further information. Intake Vital Signs12/09/17 Height 4 ft 7 in 12/09/17 Weight: 45.359 kg 12/09/17 Body Mass Index (BMI) 23.2 Intake Visit Reasons: 3 M FU Accompanied by: Pramod cohn linezolid Allergy (Severe, Verified 12/09/17 13:52) Other - seizure AND coma vancomycin Allergy (Severe, Verified 12/09/17 13:52) Other - kidney failure tobramycin Allergy (Intermediate, Verified 12/09/17 13:52) Other - turned beet red nafcillin Allergy (Mild, Verified 12/09/17 13:52) Rash benzoin Allergy (Unknown, Verified 12/09/17 13:52) Unknown milk Allergy (Unknown, Verifie d 12/09/17 13:52) Unknown soy Allergy (Unknown, Verified 12/09/17 13:52) Unknown polyethylene glycol 3350 [From Miralax] Adverse Reaction (Unknown, Verified 12/09/17 13:52) Unknown Medications Baclof en [Lioresal] 30 mg GT TID 09/02/13 [History Confirmed 12/09/17] diazepam 5 mg/mL oral concentrate 5 mg PO BID ml 08/28/17 [History Confirmed 12/09/17] diazepam 5 mg/mL oral concentrate 7 mg PO QHS ml 1 10/29/16 [History Confirmed 12/09/17] levalbuterol 1.25 mg/3 mL solution for nebulization 1.25 mg INHALATION .COMPLEX 08/28/17 [History Confirmed 12/09/17] oxcarbazepine 300 mg/5 mL (60 mg/mL) oral suspe nsion 540 mg PO BID ml 08/28/17 [History Confirmed 12/09/17] cetirizine 1 mg/mL oral solution 10 mg PO QDAY PRN #480 ml 09/02/17 [Rx Confirmed 12/09/17] fluticasone 44 mcg/actuation HFA aerosol inhaler 2 inh INHALATION .COMPLEX #10.6 g 09/23/17 [Rx Confirmed 12/09/17] guaifenesin 200 mg/5 mL oral liquid 200 mg PO Q4H PRN #473 ml 12/09/17 [Rx] PFSH Medical History Pneumonia (Resolved) Cerebral palsy (Chronic) Seizure (Chronic) Severe sepsis (Resolved) C. 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) Paraplegia (Chronic) Spastic hemiplegic cerebral palsy (Chronic) Vitamin D deficiency (Chronic) Streptococcus pneumoniae (Resolved) Surgical History Gastrostomy tube in place (Chronic) Presence of intrathecal baclofen pump (Chronic) Tracheostomy status (Chroni c) rods to back (Chronic) H/O spinal fusion (Resolved) Status post Jorje fundoplication (Resolved) derotatox ostomies (Resolved) eyes straightened (Resolved) surgery on gland under tongue (Resolved) te ndonatomies (Resolved) Social History Smoking Status: Never smoker second hand exposure: No alcohol intake: never substance use type: does not use Review of Systems Const CONSTITUTIONAL: Negat dennis anorexia, body ache, chills, daytime sleepiness, fever(s), night sweats, oral thrush, stops breathing during sleep, weight loss, sleeping in chair, fatigue, weight loss, weight gain, frequent colds, seasonal allergies, other, headache(s) or orthopnea EETM Ear Nose Throat Mouth: Positive hearing normal; negative hard of hearing, hoarseness, dry mouth in morning, change in vision, itchy eyes, eye pa in, swallowing Difficulty, ear pain, nose bleed, headache(s), mouth pain, nasal congestion, nasal discharge, post nasal drip, sinus pain, sinus pressure, sore throat or other Cardio Cardiovascular: Nega tive chest pain, chest pain at rest, chest pain with activity, irregular heart rhythm, edema, shortness of breath when lying down, palpitations, murmur or other Resp Respiratory: Positive as per HPI, wh eezing and cough cough: Positive productive color: Positive clear and white; negative shortness of breath, pain with cough, chest congestion, chest tightness, pain on inspiration, inhalers, increase use of rescue inhalers, snoring, apnea or other Gastro Gastrointestional: Negative bloody stools, change in appetite, difficulty swallowing, reflux, hematemesis, melena stool, loose stool, constipation or other Genitourinary: Negative blood in urine, nocturia, pain with urination or other Musc Musculoskeletal: Negative body pain, back pain, neck pain or other Skin/Breast Skin/Breast: Negative dry skin , itching, rash, unusual bruising, breast lump or other Neuro Neurological: Negative restless legs, confusion, weakness or other Psych Psychocological: Negative abnormal sleep pattern, anxiety, thoughts of hurting self/others, hopelessness or other Lymph Lymphatic: Negative easy bleeding, easy bruising, swollen lymph nodes or other Exam Const Constitutional: Positive cooperative and good hygiene Spa stic quadriplegia noted. Appears at baseline. Significant oral and nasal secretions. Presents on a cot. Head Head: Positive microcephalic and atraumatic; negative frontal sinus tenderness, maxillary sin us tenderness or cyanosis of lips/distal nose Eyes Eye: Positive clear conjunctiva; negative nystagmus or scleral abnormality Ears Ear: Positive hearing normal and external ears normal; negative hard of hearing Nose Nose: Positive external nose normal, septum normal and no nasal discharge; negative epistaxis or nasal polyp Mouth Mouth: Positive poor dentition, no lesions and crowded posterior orophary nx; negative post nasal drip or oral thrush present Mallampati Score: IV: Mallampati Score Gingival hyperplasia noted Neck Torticollis to the left. No lymphadenopathy noted. Tracheostomy is clean, dry a nd intact. No surrounding erythema is noted. No secretions in the vent tubing. Chest Wall Chest: Positive normal inspection of the chest and symmetric chest movement; negative crepitus or tenderness Res p lung sounds: Positive good air exchange and normal expiratory time; negative rhonchi, rales, dullness to percussion, use of accessory muscles or wheezes Cardio Cardiac: Positive regular rate, regular rhythm, S1 normal and S2 normal; negative murmur, rub or gallop GI GI: Positive normal to inspection and normal bowel sounds PEG is clean, dry and intact. Genitourinary: Positive deferred Musc Muscul oskeletal: Positive scoliosis Multiple spastic contractures of the upper more than lower extremities. Skin Pulmonary Skin Exam: Positive intact; negative rash, lesion, ulcers or erythema Pulses Pulse: Yes radial pulses present Extremities Extremities: Yes capillary refill normal, Yes clubbing, No cyanosis, No edema Neuro Patient able to smile and interact with facial expressions. Appears to be at her baseline. Very little spontaneous movement outside of her face. Lymph Lymphatic: No lymphadenopathy Psych Appearance: Positive other (At her baseline. Smiling with questions.) Mental Status: Positive o ther (At her baseline) Mood: Positive congruent mood Affect: Positive other (At her baseline. 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 [place] [address] OFFICE VISIT Date of Service: 09/02/17 MR#: [id number] Acct: [id number] Name: MANDY MONETRO Rep #: [id number] : 1990 Provider: Lawrence Weiner MD Age/Sex: 27/F Location: [facility].PMW Status: Signed Assessment AND Plan 1. 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 No indication for additional workup at this time. Patient is not having constitutional symptoms that would be concerning for pneumonia. Anti cipate lifelong mechanical ventilation. No plans for decannulation secondary to airway obstruction and mental status. Patient continues to be very well cared for with no skin issues despite multiple con tractures and limited ability for movement. Continue current therapy. 2. Acute allergic rhinitis due to pollen, unspecified seasonality J30.1; J30.1 Plan Patient is having significant upper airway se cretions. This is likely allergic given the persistence of clear to white secretions from the nose and mouth. Did discuss with the family about possible interventions. After review of the risks, benefit s and alternatives, patient will be given a trial of Zyrtec syrup to use as needed. Trial of Zyrtec 3. Chronic respiratory failure with hypoxia J96.11; J96.11; J96.11 Plan Patient is on mechanical ve ntilation at this time, but appears to be tolerating this well. No change in oxygen therapy. Patient does have copious secretions. This is likely secondary to allergic triggers. After discussion with e mother, patient will be given guaifenesin to help with any thick secretions. Patient already has an aggressive pulmonary toileting regimen at baseline. Signs and symptoms of exacerbation were reviewed in detail. Add guaifenesin as needed. Continue current mechanical ventilation. Plan Detail Other Medications New: cetirizine (Children's Zyrtec Allergy) 10 mg (10 mL) PO QDAY PRN allergy [id number] Ok to give through PEG Follow Up 3 Months (A) HPI 6 M FU: Chief Complaint: Increased secretions Details: Patient is a 27-year-old female who presents for evaluation secondary to incre ased secretions. Since last visit, patient's mother denies any ER visits, hospitalizations or prednisone burst. Patient does suffer from cerebral palsy and is unable to answer for herself. Patient pres ents on a cot with her mother and healthcare assistant front desk manager. Family reports the patient has had copious upper airway secretions over the last 2-3 weeks. These are white in color and patient has not had any other concomitant complications such as fever, chills, nausea or vomiting. Patient continues to tolerate tube feeds. Patient has had some increased endotracheal secretions, but is responding to IPPV the rapy and occasional saline aerosols. Patient's mother has been dealing with a cold for the last 3-4 weeks. Patient's mentation has been at her baseline. Patient continues with mechani dirk ventilation at baseline settings. Patient using 3 L/min bleed without complication. No dysfunction of the ventilator has been reported. No mucus plugging, cyanotic episodes or other complications joseph ve been reported. No testing was reviewed at this visit. Intake Vital Signs09/02/17 Height 4 ft 7 in 09/02/17 Weight: 45.359 kg 09/02/17 Body Mass Index (BMI) 23.2 Intake Visit Reasons: 6 M FU Aller gies linezolid Allergy (Severe, Verified 08/28/17 08:44) Other - seizure AND coma vancomycin Allergy (Severe, Verified 08/28/17 08:44) Other - kidney failure tobramycin Allergy (Intermediate, Verified 08/28/17 08:44) Other - turned beet red nafcillin Allergy (Mild, Verified 08/28/17 08:44) Rash benzoin Allergy (Unknown, Verified 08/28/17 08:44) Unknown milk Allergy (Unknown, Verifie d 08/28/17 08:44) Unknown soy Allergy (Unknown, Verified 08/28/17 08:44) Unknown polyethylene glycol 3350 [From Miralax] Adverse Reaction (Unknown, Verified 08/28/17 08:44) Unknown Medications Baclof en [Lioresal] 30 mg GT TID 09/02/13 [History Confirmed 08/28/17] diazepam 5 mg/mL oral concentrate 5 mg PO BID ml 08/28/17 [History Confirmed 08/28/17] diazepam 5 mg/mL oral concentrate 7 mg PO QHS ml 1 10/29/16 [History Confirmed 08/28/17] fluticasone 44 mcg/actuation HFA aerosol inhaler 2 inh INHALATION .COMPLEX g 08/28/17 [History Confirmed 08/28/17] levalbuterol 1.25 mg/3 mL solution for nebulizatio n 1.25 mg INHALATION .COMPLEX 08/28/17 [History Confirmed 08/28/17] oxcarbazepine 300 mg/5 mL (60 mg/mL) oral suspension 540 mg PO BID ml 08/28/17 [History Confirmed 08/28/17] cetirizine 1 mg/mL oral so lution 10 mg PO QDAY PRN #480 ml 09/02/17 [Rx Confirmed 09/02/17] guaifenesin 200 mg/5 mL oral liquid 200 mg PO Q4H PRN #473 ml 09/02/17 [Rx Confirmed 09/02/17] Review of Systems Const CONSTITUTIONAL : Negative anorexia, body ache, chills, daytime sleepiness, fever(s), night sweats, oral thrush, stops breathing during sleep, weight loss, sleeping in chair, fatigue, weight loss, weight gain, frequent colds, seasonal allergies, other, headache(s) or orthopnea EETM Ear Nose Throat Mouth: Positive hearing normal; negative hard of hearing, hoarseness, dry mouth in morning, change in vision, itchy eyes, eye pain, swallowing Difficulty, ear pain, nose bleed, headache(s), mouth pain, nasal congestion, nasal discharge, post nasal drip, sinus pain, sinus pressure, sore throat or other Cardio Cardiovascula r: Negative chest pain, chest pain at rest, chest pain with activity, irregular heart rhythm, edema, shortness of breath when lying down, palpitations, murmur or other Resp Respiratory: Positive as per HPI, wheezing, chest congestion and cough cough: Positive productive color: Positive thick, clear and white; negative pain with cough, chest tightness, pain on inspiration, inhalers, increase use of res cue inhalers, snoring, apnea, other or shortness of breath Gastro Gastrointestional: Negative bloody stools, change in appetite, difficulty swallowing, reflux, hematemesis, melena stool, loose stool, co nstipation or other Genitourinary: Negative blood in urine, nocturia, pain with urination or other Musc Musculoskeletal: Negative body pain, back pain, neck pain or other Skin/Breast Skin/Breast: Neg ative dry skin, itching, rash, unusual bruising, breast lump or other Neuro Neurological: Negative restless legs, confusion, weakness or other Psych Psychocological: Negative abnormal sleep pattern, anx iety, thoughts of hurting self/others, hopelessness or other Lymph Lymphatic: Negative easy bleeding, easy bruising, swollen lymph nodes or other Exam Const Constitutional: Positive cooperative and go od hygiene 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 Significant oral and nasal secretions. Presents on a cot. Head Head: Positive microcephalic and atraumatic; negative frontal sinus tenderness, maxillary sinus tenderness or cyanosis of lips/distal nose Eyes Eye: Positive clear conjunctiva; negative nystagmus or scleral abnormality Ears Ear: Positive hearing normal and external ears normal; ne gative hard of hearing Nose Nose: Positive clear nasal discharge and septum normal; negative epistaxis or nasal polyp Mouth Mouth: Positive no lesions and poor dentition; negative post nasal drip or ora l thrush present Mallampati Score: IV: Mallampati Score Gingival hyperplasia noted. Neck Torticollis to the left. No lymphadenopathy noted. Tracheostomy is clean, dry and intact. No surrounding erythema is noted. No secretions in the vent tubing. Chest Wall Chest: Positive normal inspection of the chest and symmetric chest movement; negative crepitus or tenderness Resp lung sounds: Positive rhonchi (S cattered), good air exchange and normal expiratory time; negative rales, dullness to percussion or use of accessory muscles Cardio Cardiac: Positive regular rate, regular rhythm, S1 normal and S2 normal ; negative murmur, rub or gallop GI GI: Positive normal to inspection and normal bowel sounds PEG is clean, dry and intact. Genitourinary: Positive deferred Musc Musculoskeletal: Positive scoliosis M ultiple spastic contractures of the upper more than lower extremities. Skin Pulmonary Skin Exam: Positive intact; negative rash, lesion or ulcers Pulses Pulse: Positive radial pulses present Extremitie s Extremities: Positive capillary refill normal; negative clubbing, cyanosis or edema Neuro Neurologic: Positive quadraplegic and understands questions Patient able to smile and interact with facial exp ressions. Appears to be at her baseline. Very little spontaneous movement outside of her face. Lymph Lymphatic: Negative lymphadenopathy, tenderness, cervical adenopathy or axillary adenopathy Psych Yaakov earance: Positive other (At her baseline. Smiling with questions.) Mental Status: Positive other (At her baseline) Mood: Positive congruent mood Affect: Positive other (At her baseline. Smiling with que stions.) and normal affect (For her baseline) 09/03/17 0708 <Electronically signed by Lawrence Weiner MD> Date Lawrence Weiner MD Cosign er Signature: Date (if applicable) CC: Sandra Bermudez DO 10-Mar-2017 Emergency Department Summary Result: Comments: See Note; NOTES: [facility] Medical Records Department [address] [place] [address] Emergency Department Summary MR#: [id number] Acct: [id number] Name: MANDY MONTERO Rep #: [id number] : 1990 26 From: Flip Jessica MD PCP: Sandra Bermudez DO Status: [facility] ER DATE OF SERVICE: 03/06/2017 CHIEF COMPLAINT: Back looks unusual per mom. HISTORY OF PRESENT ILLNESS: T he patient is an ____ bedridden cerebral palsy patient with tracheostomy, noticing today in the back, mom said was an area that seemed a little swollen. She points to the right side of the upper thoraci c spine medial to the scapula. She does not think she was on any unusual position, has not been up or hurt herself or falling. No fever, chills, nausea, vomiting. When she asked the patient if it hurts, she seems to be saying yes, she does have rods in her thoracolumbar spine. PHYSICAL EXAMINATION: VITAL SIGNS: Stable. HEENT: Normal. Mucous membranes were moist. NECK: Supple, no adenopathy. HEART: Re gular with normal S1, S2 in the 90s. LUNGS: No wheezes, rhonchi, accessory muscle use. ABDOMEN: Soft. Good bowel sounds. No pain on palpation. MUSCULOSKELETAL: Her right thoracic area, the medial spine about T2-T10, seemed a little puffy almost sharply demarcated as if this is dependent edema from a position. She has no signs of infection, warmth or swelling elsewhere. She is alert per her usual. NICOLE ATMENT: The patient's thoracic spine per radiologist and my review showed severe dextroscoliosis deformity due to the bony structures and the angelo does not conform to the contour of the spine, but no honorio nge from August of last year. Her chest x-ray, 1 view, showed no other acute lesion, just old deformity. A CBC was normal. CRP normal. At this point, mom will use Tylenol or Motrin for discomfort. Fol low up in 3-[address] Bermudez. Recheck sooner for worse pain, redness, swelling, fever, chills, nausea, vomiting or patient is stable. Mom voiced understanding. DIAGNOSIS: Acute thoracic back pain . Flip Jessica MD T: NTS JOB: [id number] 03/10/17805 <Electronically signed by Flip Jessica MD> Date Flpi Jessica MD Cosigner Signat ure (If Indicated): Date CC: Sandra Bermudez DO Date Dictated: 03/06/171722 Date Transcribed: 03/06/171722 Hydraulic Rockbreaker Operator: Signed 06-Mar-2017 Discharge Instruction Result: Comments: See Note; NOTES: [facility] Medical Records Department [address] [place] [address] Discharge Instruction 03/06/171719 MR#: [id number] Acct: [id number] Name: ROMELIA MONTERO Rep #: [id number] : 1990 26 From: Flip Jessica MD PCP: Sandra Bermudez DO Status: REG ER ED Disposition - Plan for ED Patient: Chief Complaint: Back Instructions: ED Neck Back Pain Gener al Referrals: Sandra Bermudez DO [Primary Care Provider] - 3-5 Days What to do if you have Problems For any increased pain, shortness of breath, bleeding, nausea or vomiting, chest pain, or any une xpected problems, contact your Primary Care Provider. Call [facility] ([phone]) or report to the closest Emergency Room. Call 911 if necessary. 03/06/17 1720 <Electronically signed by Flip Jessica MD> Date Flip Jessica MD Cosigner Signature (If Indicated): Date CC: Sandra Bermudez DO 06-Mar-2017 Chest 1 View Result: Comments: See Note; NOTES: [facility] Imaging Services [address] [place] [address] [place] 4[address] Chest 1 View MR#: [id number] Acct: [id number] Name: MANDY MONTERO Rickey Rep #: [id number] : 1990 F 26 From: Merritt Bolton MD PCP: Sandra Bermudez DO Status: REG ER Study: Chest 1 View Date of Exam: 03/06/17 Exam# [id number] Ordering Dr: Flip Jessica MD STUDY: X-RAY CHEST YULIANA SON FOR EXAM: Female, 26 years old. Shortness of breath TECHNIQUE: Single AP portable view of the chest. COMPARISON: Prior study of 08/11/2016 FINDINGS: There is marked deformity and hypoplasia of the thorax. There is no demonstrated pleural abnormality. Normal size heart. Normal mediastinum and glenn. Normal visualized pulmonary arteries. Normal visualized aort ic arch and descending thoracic aorta. A severe thoracic scoliosis is again noted. The thoracic fixation angelo is again seen. The visualized ribs, clavicles, and shoulders appear intact. There is no dem onstrated abnormality of the visualized soft tissue structures of the upper abdomen. RAD/Chest 1 View IMPRESSION: Marketed deformity and hypoplas ia of the bony thorax. No active cardiopulmonary disease process is evident. Electronically Signed: Merritt Bolton MD at 17:01 EDT , Service support , CC: Flip Jessica MD; Sandra Bermudez DO Hydraulic Rockbreaker Operator: Signed 06-Mar-2017 Thoracic Spine 3 Views Result: Comments: See Note; NOTES: [facility] Imaging Services [address] [place] [address] [place] 4[address] Thoracic Spine 3 Views MR#: [id number] Acct: [id number] Name: MANDY MONTERO Rickey Rep # : [id number] : 1990 F 26 From: Merritt Bolton MD PCP: Sandra Bermudez DO Status: [facility] ER Study: Thoracic Spine 3 Views Date of Exam: 03/06/17 Exam# [id number] Ordering Dr: Flip Jessica MD [facility] DY: X-RAY - THORACIC SPINE REASON FOR EXAM: Female, 26 years old. Palpable raised area of right-sided thoracic spine TECHNIQUE: 1 view(s) of the thoracic spine were obtained. COMPARISON: Prior studie s dating back to May 29, 2012 FINDINGS: There is a severe thoracic dextroscoliosis. There is severe deformity of the bony thorax. There is a fixation angelo along the entire length of thoracic spine. Angelo positioning appears similar to the previous study. There is no evidence of thoracic spinal fracture on this image. RAD/Thoracic Spine 3 Views IMPRESSION: Severe thoracic dextroscoliosis. There is deformity of the bony thorax. A fixation angelo is seen throughout the length of the thoracic spine. The angelo do es not conform to the contours of the thoracic spine, appearing similar in position to previous study of 09/10/2016. Electronically Signed: Merritt Bolton MD at 16:27 EDT Tel , Service support , CC: Flip Jessica MD; Sandra Bermudez DO Hydraulic Rockbreaker Operator: Signed 10-Sep-2016 Chest 1 View (Portable) Result: Comments: See Note; NOTES: [facility] Imaging Services [address] [place] [address] [place] 4d Chest 1 View (Portable) MR#: [id number] Acct: [id number] Name: MANDY MONTERO Rep #: [id number] : 1990 F 26 From: Mandy Chávez MD PCP: Sandra Bermudez DO Status: PRE ER Study: Chest 1 View (Portable) Date of Exam: 09/10/16 Exam# [id number] Ordering Dr: Vinnie Sher MD STUDY: X-RAY CHEST REASON FOR EXAM: Female, 26 years old. Tachypnea. TECHNIQUE: Single AP portable view of the chest. COMPARISON: January 28, 2016. FINDINGS: Trache ostomy tube is in appropriate position. The lungs are expanded. The thorax has an unusual shape probably related to congenital deformity. There is suggestion for left basilar airspace consolidation and /or atelectasis. This appears similar to the previous study. There is a small left-sided pleural effusion. There is mild cardiac enlargement. Normal mediastinum and glenn. Normal visualized pulmonary ar teries. Normal visualized aortic arch and descending thoracic aorta. Patient has had extensive surgery of the thoracic spine with Mckeon angelo. There is residual thoracic and lumbar scoliosis with co nvexity towards the right. Normal visualized ribs, clavicles, and shoulders. There is no demonstrated abnormality of the visualized soft tissue structures of the upper abdomen. RAD/Chest 1 View (Portable) IMPRESSION: Apparent left basilar airspace consolidation and/or atelectasis. A similar appearance was present on the previous radiograph. El ectronically Signed: Mandy Chávez MD at 23:49 EST , Service support [phone], CC: Linden Sher MD; Sandra Bermudez DO Hydraulic Rockbreaker Operator: Signed 12-Mar-2016 Emergency Department Summary Result: Comments: See Note; NOTES: [facility] Medical Records Department [address] [place] [address] Emergency Department Summary MR#: [id number] Acct: [id number] Name: MANDY MONTERO Rep #: [id number] : 1990 25 From: Joseph Mcgee MD PCP: Roe Baxter Status: DEP ER DATE OF SERVICE: 02/28/2016 METHOD OF ARRIVAL: Private car. CHIEF COMPLAINT: Abdomina l pain and diarrhea. HISTORY OF PRESENT ILLNESS: A 25-year-old female patient of Dr. Baxter whose history is very limited, as she has severe ____. Her mother is here and gives all history. She reports the patient has had diarrhea for the past week. It has progressively increasing. It is now 6 times a day. She reports it is very foul smelling and it smells different than C. diff with which the pat ient was treated with vancomycin for the last month. Mother reports the patient began having abdominal pain today. She has not vomited. She has had a temperature to 99 degrees. PHYSICAL EXAMINATION : GENERAL: Reveals alert woman in no acute distress. VITAL SIGNS: 99.0, 142/96, 67, 16, and 100% on her vent, which is not hypoxic. ABDOMEN: Significant physical exam findings include the abdominal e xam, which shows mild diffuse tenderness. Abdomen is soft. No guarding, rebound or peritoneal signs. The remainder of the physical exam is unremarkable. Please see T-sheet for details. TEST RESULTS : The patient had a CT of the abdomen and pelvis with p.o. and IV contrast that shows chronic changes with a normal appendix and no evidence of colitis. She had a C. diff that was negative. CBC is re markable for hematocrit of 34.9 and platelets of 136. Chem-7 is remarkable for sodium of 129, chloride 95, and creatinine is 0.39. Lactic acid is 1.6. LFTs are remarkable for globulin of 3.6. Lipase i s normal. Urine is negative. EMERGENCY DEPARTMENT COURSE: The patient was treated with a dose of morphine and Zofran IV. She is resting comfortably. TREATMENT PLAN: The patient will be discharged and instructed to follow up with Dr. Baxter in 3-5 days if not improving. DISPOSITION: Home, stable condition. IMPRESSION: Diarrhea. MD Tejas Escoto C: Jewel Baxter T: NTS JOB: [id number] 03/12/16 0008 <Electronically signed by Joseph Mcgee MD> Date Joseph Mcgee MD Cosigner Signature (If Indicated): Date _ CC: Jewel Baxter Date Dictated: 02/29/16112 Date Transcribed: 02/29/16112 Hydraulic Rockbreaker Operator: Signed 28-Feb-2016 Discharge Instruction Result: Comments: See Note; NOTES: [facility] Medical Records Department [address] [place] [address] Discharge Instruction 02/28/16 192 MR#: [id number] Acct: [id number] Name: MANDY MONTERO Rep #: [id number] : 1990 25 From: Joseph Mcgee MD PCP: Roe Baxter Status: DEP ER ED Disposition - Plan for ED Patient: Chief Complaint: Abd Pain Instructions: E D Diarrhea, Unk Cause (Adult) Report Pendg Referrals: Roe Baxter [Primary Care Provider] - 1-2 Days if not improving What to do if you have Problems For any increased pain, shortness of breath, bleeding, nausea or vomiting, chest pain, or any unexpected problems, contact your doctor. Call [facility] ([phone]) or report to the closest Emergency Room. Call 911 if necessary. [phone] <Electronically signed by Joseph Mcgee MD> Date Joseph Mcgee MD Cosigner Signature (If Indicated): Date ___ CC: Roe Baxter 28-Feb-2016 Abdomen/Pelvis without Cont Result: Comments: See Note; NOTES: [facility] Imaging Services [address] [place] [address] [place] 4d Abdomen/Pelvis without Cont MR#: [id number] Acct: [id number] Name: MANDY MONTERO Rickey Rep #: [id number] : 1990 F 25 From: Seymour Villagomez MD PCP: Roe Baxter Status: REG ER Study: Abdomen/Pelvis without Cont Date of Exam: 02/28/16 Exam# [id number] Ordering Dr: Joseph Patton MD STUDY: CT ABDOMEN AND PELVIS WITHOUT CONTRAST REASON FOR EXAM: Female, 25 years old. Diarrhea for 3 weeks. Patient with known history of cerebral palsy. RADIATION DOSAGE (If Supp lied By Facility): CTDIvol = ( 9.57 ) mGy, DLP = ( 494.54 ) mGycm TECHNIQUE: Transaxial images were obtained from the dome of the diaphragm to the symphysis pubis without oral contrast, and without intravenous contrast. Sagittal and coronal images were reconstructed. Individualized dose optimization techniques were used for this CT. COMPARISON: None. FIN DINGS: Irregular, patchy airspace disease in the posterior left base is most consistent with atelectasis, but inflammation/infection difficult to exclude. The visualized portions of the heart are wit hin normal limits. Normal liver. Normal gallbladder. The common bile duct in the head of pancreas is 6-7 mm in caliber, and there is suggestion of common hepatic duct ectasia. Normal spleen. Normal pancreas. Normal bilateral adrenal glands. There are number of nonobstructing stones in the right kidney. One of the largest is at the midpole, measuring 6 mm in greatest diameter. Normal left kid airam. No hydronephrosis. There is a percutaneous gastrostomy tube at lower body of the stomach. Normal small intestine. Normal colon. The appendix is visualized and appears normal. Normal abdominal aorta. Normal inferior vena cava. Normal retroperitoneum. Normal urinary bladder. 3.35 x 2.2 x 2.7 cm soft tissue fullness along the posterior margin of the body of the normal-size anteverted uteru s may be the normal left ovary. The right ovary is unremarkable. Normal abdominal wall. There is a moderately severe thoracolumbar dextroscoliosis as well as the appearance of spinal ankylosis. A me eran fixation angelo extends from the upper thoracic spine outside the field of view to a right laminar clip at L5-S1. There is some deformity of the left acetabulum and left femoral head with mild super olateral subluxation of the left hip, findings often seen as a developmental anomaly in chronic nonambulatory patients. IMPRESSION: 1. No suspicious bowel wall thickening to suggest colitis. There is no bowel distention suspicious for obstruction. The appendix is normal. 2. Percutaneous gastrostomy tube noted. 3. Nonobstructing right nephrolithiasis evident on today's study. Left kidney is unremarkable. No hydronephrosis. 4. Biliary ductal ectasia again noted, but improved from previous exam. The source of the finding is unclear. 5. Irregular, patchy airspace disease in the posterior left lung base is most consistent with atelectasis. Infection not excluded, however. 6. Grossly unremarkable visualized uterus and adnexa. 7. Stable moderately sever e thoracolumbar dextroscoliosis and spinal ankylosis. Metal fixation angelo again noted as well. There is chronic deformity of the left acetabulum and left femoral head with mild superolateral subluxati on of the left hip. Electronically Signed: Sohan Villagomez MD at 18:47 EDT , Service support [phone], CC: Roe Baxter; Joseph Mcgee MD Hydraulic Rockbreaker Operator: Signed 25-Feb-2016 Emergency Department Summary Result: Comments: See Note; NOTES: [facility] Medical Records Department [address] [place] [address] Emergency Department Summary MR#: [id number] Acct: [id number] Name: MANDY MONTERO Rep #: [id number] : 1990 25 From: Tomás Willis MD PCP: Roe Baxter Status: DEP ER DATE OF SERVICE: 02/23/2016 METHOD OF ARRIVAL: By private car with mom. PRIMARY CARE PHYS ICIAN: Dr. Roe Baxter. CHIEF COMPLAINT: Rash. TERESA HISTORY: A 25-year-old female with history of cerebral palsy, chronic respiratory failure, and history of C. diff pneumonia. The patient comes in with a rash that is going on for 12 days. It is located in the perineal region, started after she had problems with the diarrhea from the C. diff. She also had a rash on her buttock area that has i mproved with B and W ointment. However, to the perineal area, they have tried nystatin, Monistat ____ cream, all of which has not improved. REVIEW OF SYSTEMS: She has had a low grade temperature of 99. Continued to have diarrhea, but she did have a C. diff test this week that was negative. The respiratory status is significantly improved. Denies any other complaints. PHYSICAL EXAMINATION: ERAN SIGNS: Stable. She is 100% on her trach vent. HEENT: Trach area looks well. No signs of any erythema or drainage. HEART: Regular. LUNGS: Sounds are clear anteriorly. ABDOMEN: Soft and nontender. She has a G-tube present. BACK: Her buttock area looks well. There are no ulcers. EXTREMITIES: Show no edema. SKIN: Exam revealed the perineal area is reddened area that blanches with satellite les ions consistent with yeast. NEUROLOGIC: She is at her baseline. EMERGENCY DEPARTMENT COURSE: Discussed with mother about checking any labs or anything, she declined. At this point, since she has be en on other topical antifungal and if this is not improved, we will place her on Diflucan. We will also have her do the nystatin ointment as well. She will be encouraged to follow up with her doctor. Return with any problems. CLINICAL IMPRESSION: 1. Rash, suspect Theresa. 2. History of cerebral palsy. 3. History of respiratory failure. DISPOSITION: Home. MD Tejas Beltre C: Roe Baxter MD T: [facility] JOB: [id number] 02/25/16 1517 <Electronically signed by Tomás Willis MD> Date Tomás Willis MD Cosigner Signature (If Indicated): Date CC: Roe Baxter Date Dictated: 02/23/16 152 Date Transcribed: 02/23/16 152 Hydraulic Rockbreaker Operator: Signed 23-Feb-2016 Discharge Instruction Result: Comments: See Note; NOTES: [facility] Medical Records Department [address] [place] [address] Discharge Instruction 02/23/16 1514 MR#: [id number] Acct: [id number] Name: MANDY MONTERO Rickey Rep #: [id number] : 1990 From: Tomás Willis MD PCP: Roe Baxter Status: REG ER ED Disposition - Plan for ED Patient: Disposition: Home or Assisted Living Chief C omplaint: Rash Instructions: ED Theresa Skin Infection (Adult) Prescriptions: Fluconazole [Diflucan] 100 mg PO DAILY #7 tablet Nystatin [Mycostatin] 1 applic TOPICAL TID #1 tube Referrals: Anabela Baxter [Primary Care Provider] - 2 Days Additional Instructions: follow up with your doctor. return with problems. What to do if you have Problems For any increased pain, shortness of breath, blee ding, nausea or vomiting, chest pain, or any unexpected problems, contact your doctor. Call [facility] ([phone]) or report to the closest Emergency Room. Call 911 if necessary. [phone] <Electronically signed by Tomás Willis MD> Date Tomás Willis MD Cosigner Signature (If Indicated): Date CC: Roe Baxter 28-Jan-2016 Chest 1 View (Portable) Result: Comments: See Note; NOTES: [facility] Imaging Services [address] [place] [address] [place] Chest 1 View (Portable) MR#: [id number] Acct: [id number] Name: MANDY ACUNA Rep #: [id number] : 1990 F 25 From: Abdirahman Awad MD PCP: Linda Houston MD Status: PRE ER Study: Chest 1 View (Portable) Date of Exam: 01/28/16 Exam# [id number] Ordering Dr: Edita Willis MD STUDY: X-RAY CHEST REASON FOR EXAM: Female, 25 years old. Chest pain and fever TECHNIQUE: AP portable COMPARISON: May 29, 2012 FINDINGS: Diminished inspiratory effort is seen.. There is increased retrocardiac density possibly representing left lower lobe atelectasis or infiltrate There is no demonstrated pleural abnormality. Normal size heart. Normal mediastinum and glenn. Normal visualized pulmonary arteries. Normal visualized aortic arch and descending thoracic aorta. Dorsal spine demonstrates scoliosis and there are postsurg ical changes status post scoliosis correction surgery Normal visualized ribs, clavicles, and shoulders. There is no demonstrated abnormality of the visualized soft tissue structures of the upper ab domen. IMPRESSION: Retrocardiac density in left lower lobe possibly representing atelectasis or infiltrate. Recommend lateral view for further assessment Elect ronically Signed: Abdirahman Awad MD at 22:53 EDT , Service support [phone], RAD/Chest 1 View (Portable) IMPRESSION: Retrocar diac density in left lower lobe possibly representing atelectasis or infiltrate. Recommend lateral view for further assessment Electronically Signed: Abdirahman Awad MD at 22:53 EDT , Service support [phone], CC: Linda Houston MD; Tomás Willis MD Hydraulic Rockbreaker Operator: Signed Family History Unknown Family Member Name Dates Details She was adopted at 5 months Status: Active Social History Name Dates Details Current Work/Study Status Comments: Disabled Status: Active Exercise History Comments: Inactive Status: [facility] Status: Active No Caffeine Use Status: Active No Drug Use Status: Active Non Drinker/No Alcohol Use Status: Active Non Smoker/No Tobacco Use Status: Active Vital Signs Date Test Result Details 34-Lqr-346006:15 Pulse 104 /min Comments: Pattern: Regular O2 SAT 99 % Comments: Room air BP Systolic 118 mm[Hg] Comments: Patient Position: Sitting; Cuff Location: Left Arm; Cuff Size: Standard BP Diastolic 78 mm[Hg] Comments: Patient Position: Sitting; Cuff Location: Left Arm; Cuff Size: Standard Weight 100 lb Height 55.5 in Body Mass Index Calculated 22.83 kg/m2 Body Surface Area Calculated 1.31 m2 56-Ead-120590:08 Pulse 86 /min Comments: Pattern: Regular O2 SAT 98 % Comments: Room air BP Systolic 118 mm[Hg] Comments: Patient Position: Sitting; Cuff Location: Left Arm; Cuff Size: Standard BP Diastolic 76 mm[Hg] Comments: Patient Position: Sitting; Cuff Location: Left Arm; Cuff Size: Standard Weight 100 lb Height 55.5 in Body Mass Index Calculated 22.83 kg/m2 Body Surface Area Calculated 1.31 m2 :02 Pulse 94 /min Comments: Pattern: Regular Respiration Rate 18 /min Comments: Pattern: Unlabored O2 SAT 99 % Comments: Room air BP Systolic 122 mm[Hg] Comments: Patient Position: Standing; Cuff Location: Left Arm; Cuff Size: Standard BP Diastolic 82 mm[Hg] Comments: Patient Position: Standing; Cuff Location: Left Arm; Cuff Size: Standard Weight 100 lb Height 55.5 in Body Mass Index Calculated 22.83 kg/m2 Body Surface Area Calculated 1.31 m2 :09 Pulse 18 /min Comments: Pattern: Regular Respiration Rate 18 /min Comments: Pattern: Unlabored O2 SAT 98 % Comments: Room air BP Systolic 122 mm[Hg] Comments: Patient Position: Supine; Cuff Location: Left Arm; Cuff Size: Standard BP Diastolic 78 mm[Hg] Comments: Patient Position: Supine; Cuff Location: Left Arm; Cuff Size: Standard Weight 100 lb Height 55.5 in Body Mass Index Calculated 22.83 kg/m2 Body Surface Area Calculated 1.31 m2 :34 Comments: Weight not checked today Temperature 97.5 f Comments: Method: Temporal Pulse 78 /min Comments: Pattern: Regular Respiration Rate 16 /min Comments: Pattern: Unlabored O2 SAT 99 % Comments: Room air BP Systolic 114 mm[Hg] Comments: Patient Position: Sitting; Cuff Location: Left Arm; Cuff Size: Standard BP Diastolic 70 mm[Hg] Comments: Patient Position: Sitting; Cuff Location: Left Arm; Cuff Size: Standard Weight 100 lb Height 55.5 in Body Mass Index Calculated 22.83 kg/m2 Body Surface Area Calculated 1.31 m2 :12 Temperature 98.6 f Comments: Method: Tympanic Pulse 78 /min Comments: Pattern: Regular O2 SAT 99 % Comments: Room air BP Systolic 102 mm[Hg] Comments: Patient Position: Sitting; Cuff Location: Left Arm; Cuff Size: Standard BP Diastolic 74 mm[Hg] Comments: Patient Position: Sitting; Cuff Location: Left Arm; Cuff Size: Standard Weight 100 lb Height 55.5 in Body Mass Index Calculated 22.83 kg/m2 Body Surface Area Calculated 1.31 m2 :24 Temperature 98 f Comments: Method: Tympanic Pulse 72 /min Comments: Pattern: Regular Respiration Rate 18 /min Comments: Pattern: Unlabored O2 SAT 98 % Comments: Room air BP Systolic 122 mm[Hg] Comments: Patient Position: Sitting; Cuff Location: Left Arm; Cuff Size: Standard BP Diastolic 62 mm[Hg] Comments: Patient Position: Sitting; Cuff Location: Left Arm; Cuff Size: Standard Weight 100 lb Height 55.5 in Body Mass Index Calculated 22.83 kg/m2 Body Surface Area Calculated 1.31 m2 :03 Comments: on 3 liters oxygen via trach Temperature 97.3 f Comments: Method: Temporal Pulse 76 /min Comments: Pattern: Regular Respiration Rate 20 /min Comments: Pattern: Unlabored O2 SAT 99 % Comments: 3L O2 BP Systolic 118 mm[Hg] Comments: Patient Position: Sitting; Cuff Location: Left Arm; Cuff Size: Standard BP Diastolic 76 mm[Hg] Comments: Patient Position: Sitting; Cuff Location: Left Arm; Cuff Size: Standard Weight 90 lb :21 Comments: weight estimated per family Temperature 97.6 f Comments: Method: Temporal Pulse 104 /min Comments: Pattern: Regular Respiration Rate 20 /min Comments: Pattern: Unlabored O2 SAT 98 % Comments: 2L O2 BP Systolic 124 mm[Hg] Comments: Patient Position: Sitting; Cuff Location: Left Arm; Cuff Size: Standard BP Diastolic 78 mm[Hg] Comments: Patient Position: Sitting; Cuff Location: Left Arm; Cuff Size: Standard Weight 90 lb :36 Temperature 98.1 f Comments: Method: Temporal Pulse 62 /min Comments: Pattern: Regular Respiration Rate 17 /min Comments: Pattern: Unlabored O2 SAT 98 % Comments: Room air BP Systolic 110 mm[Hg] Comments: Patient Position: Sitting; Cuff Location: Left Arm; Cuff Size: Standard BP Diastolic 64 mm[Hg] Comments: Patient Position: Sitting; Cuff Location: Left Arm; Cuff Size: Standard Weight 93 lb :43 Comments: weight reported per home helathnurse/mom Temperature 97 f Comments: Method: Temporal Pulse 74 /min Comments: Pattern: Regular Respiration Rate 20 /min Comments: Pattern: Unlabored BP Systolic 110 mm[Hg] Comments: Patient Position: Sitting; Cuff Location: Left Arm; Cuff Size: Standard BP Diastolic 64 mm[Hg] Comments: Patient Position: Sitting; Cuff Location: Left Arm; Cuff Size: Standard Weight 93 lb :57 Temperature 97.6 f Comments: Method: Temporal Pulse 72 /min Comments: Pattern: Regular Respiration Rate 14 /min Comments: Pattern: Unlabored O2 SAT 98 % Comments: Room air BP Systolic 112 mm[Hg] Comments: Patient Position: Sitting; Cuff Location: Left Arm; Cuff Size: Standard BP Diastolic 62 mm[Hg] Comments: Patient Position: Sitting; Cuff Location: Left Arm; Cuff Size: Standard Weight 87 lb 4-Kwg-712775:56 Comments: unable to obtain height weight reported per father patient is cp patient Temperature 98 f Comments: Method: Axillary Pulse 86 /min Comments: Pattern: Regular Respiration Rate 20 /min Comments: Pattern: Unlabored BP Systolic 126 mm[Hg] Comments: Patient Position: Sitting; Cuff Location: Left Arm; Cuff Size: Standard BP Diastolic 80 mm[Hg] Comments: Patient Position: Sitting; Cuff Location: Left Arm; Cuff Size: Standard Weight 87 lb :57 Temperature 97.6 f Comments: Method: Axillary Pulse 80 /min Comments: Pattern: Regular Respiration Rate 16 /min Comments: Pattern: Unlabored BP Systolic 124 mm[Hg] Comments: Patient Position: Sitting; Cuff Location: Left Arm; Cuff Size: Standard BP Diastolic 78 mm[Hg] Comments: Patient Position: Sitting; Cuff Location: Left Arm; Cuff Size: Standard Weight 87 lb :54 Pulse 86 /min Comments: Pattern: Regular Respiration Rate 16 /min Comments: Pattern: Unlabored BP Systolic 140 mm[Hg] Comments: Patient Position: Sitting; Cuff Location: Left Arm; Cuff Size: Standard BP Diastolic 110 mm[Hg] Comments: Patient Position: Sitting; Cuff Location: Left Arm; Cuff Size: Standard Weight 80 lb Height 0 in Head Circumference 0.00 cm Results Date Description Value Details :37 TSH (74001) Comments: PATIENT NOT FASTINGPERFORMED BY: HARRIET [employer] Lynda [facility] [id number] BY: NABIL [facility] [id number] TSH 1.030 {uIU/mL} (Normal) Range: 0.450-4.500 :37 T4, FREE (THYROXINE) Comments: PATIENT NOT FASTINGPERFORMED BY: HARRIET [facility] Vrtisp2863 [facility] [id number] BY: [employer] [address]68[address] [facility] [id number] (97150) T4,Free(Direct) 0.84 ng/dL (Normal) Range: 0.82-1.77 42-Ygp-058658:37 T3, FREE (TRIDOTHYRONINE) Comments: PATIENT NOT FASTINGPERFORMED BY: [facility]Co Jahkci[address] [facility] [id number] BY: [employer] Dcbjllerkq3284 [facility] [id number] (93741) Triiodothyronine (T3), Free 2.6 pg/mL (Normal) Range: 2.0-4.4 03-Aue-021466:37 CALCIFIDIOL (79834) VIT D Comments: PATIENT NOT FASTINGPERFORMED BY: [employer] Xdylut3648 [facility] [id number] BY: [employer] Hjxoxcqvdy0452 [facility] [id number] 25 Vitamin D, 25-Hydroxy 42.6 ng/mL (Normal) Range: 30.0-100.0 Comments: Vitamin D deficiency has been defined by the [place] [employer] [employer] and an Endocrine Society practice guideline as alevel of serum 25-OH vitamin D less than 20 ng/mL (1,2).The Endocrine Society went on to further define vitamin Dinsufficiency as a level between 21 and 29 ng/mL (2).1. IOM ([place] of Medicine). 2010. Dietary reference intakes for calcium and D. [place]: The National Academies Press.2. Gabbi MF, Singh [place], Pollo JOSEPH, et al. Evaluation, treatment, and prevention of vitamin D deficiency: an Endocrine Society clinical practice guideline. JCEM. 2010; 96(7):1911-30. 18-Vlr-238905:37 TRILEPTAL-OXCARBAZEPINE [id number] Comments: send results to dr sandy storm; PATIENT NOT FASTINGPERFORMED BY: [employer] Wdwhin1757 [facility] [id number] BY: LabS[place] [address] [facility] [id number] (31149) Oxcarbazepine 49 ug/mL (Abnormal) Range: 10-35 Comments: Detection Limit = 1 :37 CBC with auto diff Comments: send results to dr delgado too; PATIENT NOT FASTINGPERFORMED BY: LabCoUNM Children's HospitalBtpkwn5042 Rincon RoadblUofL Health [facility] [id number] BY: LabCoMichael [place] [address] [facility] [id number] (00436) Immature Grans (Abs) 0.0 {x10E3/uL} (Normal) Range: 0.0-0.1 Immature Granulocytes 0 % (Normal) Baso (Absolute) 0.0 {x10E3/uL} (Normal) Range: 0.0-0.2 Eos (Absolute) 0.1 {x10E3/uL} (Normal) Range: 0.0-0.4 Monocytes(Absolute) 0.8 {x10E3/uL} (Normal) Range: 0.1-0.9 Lymphs (Absolute) 1.0 {x10E3/uL} (Normal) Range: 0.7-3.1 Neutrophils (Absolute) 4.4 {x10E3/uL} (Normal) Range: 1.4-7.0 Basos 0 % (Normal) Eos 2 % (Normal) Monocytes 12 % (Normal) Lymphs 16 % (Normal) Neutrophils 70 % (Normal) Platelets 233 {x10E3/uL} (Normal) Range: 150-379 RDW 12.1 % (Abnormal) Range: 12.3-15.4 MCHC 32.6 g/dL (Normal) Range: 31.5-35.7 MCH 31.5 pg (Normal) Range: 26.6-33.0 MCV 97 fL (Normal) Range: 79-97 Hematocrit 38.6 % (Normal) Range: 34.0-46.6 Hemoglobin 12.6 g/dL (Normal) Range: 11.1-15.9 RBC 4.00 {x10E6/uL} (Normal) Range: 3.77-5.28 WBC 6.3 {x10E3/uL} (Normal) Range: 3.4-10.8 32-Ncr-102443:37 METABOLIC PANEL, Comments: send results to dr delgado too; PATIENT NOT FASTINGPERFORMED BY: [employer] Ycbuzk4951 [facility] [id number] BY: [employer] [id number] COMPREHENSIVE (20366) ALT (SGPT) 38 [iU]/L (Abnormal) Range: 0-32 AST (SGOT) 27 [iU]/L (Normal) Range: 0-40 Alkaline Phosphatase 63 [iU]/L (Normal) Range: 39-117 Bilirubin, Total <0.2 mg/dL (Normal) Range: 0.0-1.2 A/G Ratio 2.0 (Normal) Range: 1.2-2.2 Globulin, Total 2.3 g/dL (Normal) Range: 1.5-4.5 Albumin 4.5 g/dL (Normal) Range: 3.5-5.5 Protein, Total 6.8 g/dL (Normal) Range: 6.0-8.5 Calcium 9.5 mg/dL (Normal) Range: 8.7-10.2 Carbon Dioxide, Total 24 mmol/L (Normal) Range: 20-29 Chloride 97 mmol/L (Normal) Range: 96-106 Potassium 4.2 mmol/L (Normal) Range: 3.5-5.2 Sodium 139 mmol/L (Normal) Range: 134-144 BUN/Creatinine Ratio 33 (Abnormal) Range: 9-23 eGFR If Africn Am 165 mL/min/1.73 (Normal) eGFR If NonAfricn Am 143 mL/min/1.73 (Normal) Creatinine 0.39 mg/dL (Abnormal) Range: 0.57-1.00 BUN 13 mg/dL (Normal) Range: 6-20 Glucose 237 mg/dL (Abnormal) Range: 65-99 56-Vjf-832231:37 HGB A1C (30577) Comments: PATIENT NOT FASTINGPERFORMED BY: [employer] Yxkleb1599 [facility] [id number] BY: LabBplats[address] [id number] Hemoglobin A1c 6.3 % (Abnormal) Range: 4.8-5.6 Comments: . Prediabetes: 5.7 - 6.4 Diabetes: >6.4 Glycemic control for adults with diabetes: <7.0 09-Hof-601163:00 Urinalysis, Complete Comments: How was Urine Obtained? [facility] SPECIMENWC[facility] Oauhqibxdm[address] [place], [place], [id number] MUCUS, URINE 0 SEEN {/hpf} (Normal) BACTERIA 0 SEEN {/hpf} (Normal) SQUAM EPI 0-5 SEEN {/hpf} (Normal) Range: 5-10 RBC-UA 0-5 SEEN {/hpf} (Normal) Range: 0-5 WBC 0 SEEN {/hpf} (Normal) Range: 0-5 LEUK ESTERASE Negative /ul (Normal) OCCULT BLOOD-UR Negative /ul (Normal) NITRITE UR Negative (Normal) UROBILI Normal mg/dL (Normal) PROT DIPSTX Negative mg/dL (Normal) pH UR 8.0 (Normal) Range: 5.0 - 8.0 SP.GR. DIPSTX 1.015 (Normal) Range: 1.002-1.030 KETONE UR 5 mg/dL (Abnormal) BILIRUBIN URINE Negative mg/dL (Normal) GLUCOSE, UR 250 mg/dL (Abnormal) CLARITY Clear (Normal) COLOR Yellow (Normal) 20-Cpk-830472:50 Basic Metabolic Profile (BMP) Comments: [facility] [address] [place], [place], [id number] GAP 8 (Normal) Range: 5-15 CO2 28.0 mmol/L (Normal) Range: 21.0-32.0 CL 97 mmol/L (Abnormal) Range: 98-107 K 4.3 mmol/L (Normal) Range: 3.5-5.1 Comments: Moderate Hemolysis, Result may be falsely increased. NA 133 mmol/L (Abnormal) Range: 136-145 CA 9.2 mg/dL (Normal) Range: 8.5-10.1 BUN/CRE 20.8 {RATIO} (Abnormal) Range: 10-20 Estimated CRCL 126.06 ml/min (Normal) EST GFR - AA 198 mL/min (Normal) Comments: GFR Calc EST GFR 164 mL/min (Normal) Comments: Non- GFR Calc CREAT,SERUM 0.48 mg/dL (Abnormal) Range: 0.55-1.02 Comments: The validity of the calculated GFR AND GFRAA in patients over70 years has not been determined. Clinical correlation isessential. BUN 10 mg/dL (Normal) Range: 7-18 GLU 116 mg/dL (Abnormal) Range: 74-106 Comments: Fasting Glucose result from 100 to 125 mg/dLsuggests IMPAIRED HOMEOSTASIS per A.D.A. criteria.Please note revised GLUCOSE reference range wmetpdayt39/02/2018. 76-Kwu-425656:50 CBC W/Diff, Automated Comments: [facility] [address] [place], [address] Absolute Lymph 1.52 {X10_3/ul} (Normal) Range: 0.83-4.51 Absolute Neut 3.6 {X10_3/uL} (Normal) Range: 2.0-7.7 IM GRAN % 0.300 % (Normal) Range: 0.0-0.9 Comments: IG% - Immature Granulocytes (promyelocytes, myelocytes andmetamyelocytes) > 1% indicates that a LEFT SHIFT is Present. BASO% 0.3 % (Normal) Range: 0-1 EO% 1.7 % (Normal) Range: 0-5 MONO% 12.4 % (Abnormal) Range: 0-10 LY% 25.4 % (Normal) Range: 19-41 NEUT% 59.9 % (Normal) Range: 47-70 MPV 10.7 fL (Normal) Range: 6.2-12.0 PLT 202 K/mm3 (Normal) Range: 150-450 RDW SD 40.7 fL (Normal) Range: 35.1-43.9 RDW CV 12.0 % (Normal) Range: 11.6-14.6 MCHC 33.8 {g/gl} (Normal) Range: 32-36 MCH 32.0 pg (Normal) Range: 27.0-32.0 MCV 94.5 fL (Normal) Range: 81-99 HCT 39.9 % (Normal) Range: 37-47 HGB 13.5 g/dL (Normal) Range: 12.0-15.0 RBC 4.22 {M/mm3} (Normal) Range: 4.2-5.4 WBC 6.0 K/mm3 (Normal) Range: 4.4-11.0 52-Elp-75398:00 Lactic Acid Comments: Yes/No query for Sepsis Lactate Rule [facility] [address] [place], [address] LACTIC ACID 2.0 mmol/L (Normal) Range: 0.4-2.0 Comments: Critical Result(s) Called at: 18:33:30 01/24/2018 by:Yohana saenz [facility] 72-Epc-661515:39 TSH (88351) Comments: PATIENT NOT FASTINGPERFORMED BY: LabCoJersey City Medical CenterFqmsft3513 [facility] [id number] BY: [facility]Co[address] [id number] TSH 1.150 {uIU/mL} (Normal) Range: 0.450-4.500 56-Hva-267849:39 METABOLIC PANEL, Comments: PATIENT NOT FASTINGPERFORMED BY: [facility] Efqnxz1694 [facility] [id number] BY: [facility] [address] [id number] COMPREHENSIVE (75156) ALT (SGPT) 18 [iU]/L (Normal) Range: 0-32 AST (SGOT) 16 [iU]/L (Normal) Range: 0-40 Alkaline Phosphatase, S 98 [iU]/L (Normal) Range: 39-117 Bilirubin, Total <0.2 mg/dL (Normal) Range: 0.0-1.2 A/G Ratio 2.2 (Normal) Range: 1.2-2.2 Globulin, Total 2.1 g/dL (Normal) Range: 1.5-4.5 Albumin, Serum 4.6 g/dL (Normal) Range: 3.5-5.5 Protein, Total, Serum 6.7 g/dL (Normal) Range: 6.0-8.5 Calcium, Serum 9.5 mg/dL (Normal) Range: 8.7-10.2 Carbon Dioxide, Total 23 mmol/L (Normal) Range: 18-29 Chloride, Serum 96 mmol/L (Normal) Range: 96-106 Potassium, Serum 4.1 mmol/L (Normal) Range: 3.5-5.2 Sodium, Serum 138 mmol/L (Normal) Range: 134-144 BUN/Creatinine Ratio 44 (Abnormal) Range: 9-23 eGFR If Africn Am 188 mL/min/1.73 (Normal) eGFR If NonAfricn Am 163 mL/min/1.73 (Normal) Creatinine, Serum 0.27 mg/dL (Abnormal) Range: 0.57-1.00 BUN 12 mg/dL (Normal) Range: 6-20 Glucose, Serum 138 mg/dL (Abnormal) Range: 65-99 85-Nke-671752:39 CBC W/AUTO DIFF WBC Comments: PATIENT NOT FASTINGPERFORMED BY: CB [facility] Ddhrhf3101 [facility] [id number] BY: BN [facility] Towfnagufa0498 [facility] [id number] (60484) Immature Grans (Abs) 0.0 {x10E3/uL} (Normal) Range: 0.0-0.1 Immature Granulocytes 0 % (Normal) Baso (Absolute) 0.0 {x10E3/uL} (Normal) Range: 0.0-0.2 Eos (Absolute) 0.1 {x10E3/uL} (Normal) Range: 0.0-0.4 Monocytes(Absolute) 1.0 {x10E3/uL} (Abnormal) Range: 0.1-0.9 Lymphs (Absolute) 1.2 {x10E3/uL} (Normal) Range: 0.7-3.1 Neutrophils (Absolute) 4.4 {x10E3/uL} (Normal) Range: 1.4-7.0 Basos 0 % (Normal) Eos 1 % (Normal) Monocytes 15 % (Normal) Lymphs 18 % (Normal) Neutrophils 66 % (Normal) Platelets 221 {x10E3/uL} (Normal) Range: 150-379 RDW 12.7 % (Normal) Range: 12.3-15.4 MCHC 33.9 g/dL (Normal) Range: 31.5-35.7 MCH 31.1 pg (Normal) Range: 26.6-33.0 MCV 92 fL (Normal) Range: 79-97 Hematocrit 37.8 % (Normal) Range: 34.0-46.6 Hemoglobin 12.8 g/dL (Normal) Range: 11.1-15.9 Comments: Effective August 16, 2017 the reference interval for Hemoglobin MALES only will be changing to: Males 13-15 years: 12.6 - 17.7 Males >15 years: 13.0 - 17.7 RBC 4.11 {x10E6/uL} (Normal) Range: 3.77-5.28 WBC 6.6 {x10E3/uL} (Normal) Range: 3.4-10.8 :39 TRILEPTAL-OXCARBAZEPINE [id number] Comments: PATIENT NOT FASTINGPERFORMED BY: [employer] Kpnwiu[address] [facility] [id number] BY: [employer] [id number] (33759) Oxcarbazepine 28 ug/mL (Normal) Range: 10-35 Comments: Detection Limit = 1 :39 CALCIFIDIOL (12887) VIT D Comments: PATIENT NOT FASTINGPERFORMED BY: [employer] ([employer]) LabBplatsrp Jdulgk8906 [place] [facility]DirectMartin [facility] Hospitalin [place] [id number] BY: [employer] [id number] 25 Vitamin D, 25-Hydroxy 56.3 ng/mL (Normal) Range: 30.0-100.0 Comments: Vitamin D deficiency has been defined by the [place] [employer] [employer] and an Endocrine Society practice guideline as alevel of serum 25-OH vitamin D less than 20 ng/mL (1,2).The Endocrine Society went on to further define vitamin Dinsufficiency as a level between 21 and 29 ng/mL (2).1. IOM ([place] of [employer]). 2010. Dietary reference intakes for calcium and D. [place]: The National Academies Press.2. Gabbi MF, Singh MCKEON, Pollo JOSEPH, et al. Evaluation, treatment, and prevention of vitamin D deficiency: an Endocrine Society clinical practice guideline. JCEM. 2010; 96(7):1911-30. :39 HGB A1C (87867) Comments: PATIENT NOT FASTINGPERFORMED BY: [facility] Lbhcqy0892 [facility] [id number] BY: NABIL [facility] Kxiefgnfxo1583 [facility] [id number] Hemoglobin A1c 5.7 % (Abnormal) Range: 4.8-5.6 Comments: . Pre-diabetes: 5.7 - 6.4 Diabetes: >6.4 Glycemic control for adults with diabetes: <7.0 20-Apr-20174:11 THROAT CULTURE (30392) Comments: PATIENT NOT FASTINGPERFORMED BY: HARRIET [facility] Suhnpo4070 [facility] [id number] Information: SRC:TH Result 1 RRF (Normal) Comments: Routine respiratory jasper Upper Respiratory Culture Final report (Normal) 22-Wpu-308113:35 CBC W/Diff, Automated Comments: [facility] [address] [place], [address] Absolute Lymph 1.23 {X10_3/ul} (Normal) Range: 0.83-4.51 Absolute Neut 2.9 {X10_3/uL} (Normal) Range: 2.0-7.7 IM GRAN % 0.200 % (Normal) Range: 0.0-0.9 Comments: IG% - Immature Granulocytes (promyelocytes, myelocytes andmetamyelocytes) > 1% indicates that a LEFT SHIFT is Present. BASO% 0.2 % (Normal) Range: 0-1 EO% 1.6 % (Normal) Range: 0-5 MONO% 12.2 % (Abnormal) Range: 0-10 LY% 25.4 % (Normal) Range: 19-41 NEUT% 60.4 % (Normal) Range: 47-70 MPV 10.5 fL (Normal) Range: 6.2-12.0 PLT 207 K/mm3 (Normal) Range: 150-450 RDW SD 43.5 fL (Normal) Range: 35.1-43.9 RDW CV 12.7 % (Normal) Range: 11.6-14.6 MCHC 33.1 {g/gl} (Normal) Range: 32-36 MCH 31.1 pg (Normal) Range: 27.0-32.0 MCV 93.9 fL (Normal) Range: 81-99 HCT 38.4 % (Normal) Range: 37-47 HGB 12.7 g/dL (Normal) Range: 12.0-15.0 RBC 4.09 {M/mm3} (Abnormal) Range: 4.2-5.4 WBC 4.9 K/mm3 (Normal) Range: 4.4-11.0 :35 CRP Comments: [facility] [address]ngcjbwy3551 [facility] [address] [place], [place], [id number] C-REACTIVE PROT < 2.90 mg/L (Normal) Range: 0.0-3.0 Comments: C-Reactive Protein (CRP) provides useful information for thediagnosis, therapy and monitoring of inflammatory processesand associated diseases. For the evaluation of Relative Riskfor Cardiovascular Dise ase, a High Sensitivity CRP (HSCRP)should be ordered. :15 Culture, Nose Comments: [facility] [address] [place], [place], [address] CUN See Note (Normal) Comments: Comments: THICK SPUTUMGram StainGram Stain 1+ Epithelial cells 3+ Gram negative rods 2+ Gram positive rods Rare Gram positive cocci Rare White Blood Cells Nasoph. CultNO NORMAL JASPER PRESENT ORGAN ISM 1: Serratia marcescensAmount Growth 3+ ORGANISM 2: Pseudomonas aeroginosaAmount Growth 3+ Serratia marcescens: REACTION Amoxacillin/Cl avulanic Acid $ >=32 R Cefazolin $ >=64 R Cefepime $ <=1 S Ceftriaxone $ <=1 S Ciprofloxacin $ 0.5 S Ertapenim $$$ <=0.5 S Gentamicin $ <=1 S Levofloxacin $ 1 S Tobramycin $ <=1 S Trimethoprim/Sulfametho $ <=20 S(NF) indicates non-formulary drug at [facility]. Ap proval by Infectious Disease Specialist required before non-formulary drugs may be ordered and/or dispensed. Pseudomonas aeroginosa: REACTION Cefepime $ <=1 S Ceftazidime *NF 2 S Ciprofloxacin $ 2 I Gentamicin $ <=1 S Imipenem *NF 1 S Levofloxacin $ 4 I Piperacillin/Tazobactam $$ 8 S Tobramycin $ <=1 S(NF) rocky cates non-formulary drug at [facility]. Approval by Infectious Disease Specialist required before non-formulary drugs may be ordered and/or dispensed. 33-Fjg-234946:34 LIPID PANEL (43967) Comments: PATIENT NOT FASTINGPERFORMED BY: [employer] Nhnvkb4063 [facility] [id number] BY: [employer] [id number] LDL/HDL Ratio 1.5 {ratio_units} (Normal) Range: 0.0-3.2 Comments: LDL/HDL Ratio Men Women 1/2 Avg.Risk 1.0 1.5 Av g.Risk 3.6 3.2 2X Avg.Risk 6.2 5.0 3X Avg.Risk 8.0 6.1 LDL Cholesterol Calc 76 mg/dL (Normal) Range: 0-99 VLDL Cholesterol Dirk 17 mg/dL (Normal) Range: 5-40 HDL Cholesterol 50 mg/dL (Normal) Triglycerides 84 mg/dL (Normal) Range: 0-149 Cholesterol, Total 143 mg/dL (Normal) Range: 100-199 33-Isz-798580:34 METABOLIC PANEL, Comments: PATIENT NOT FASTINGPERFORMED BY: Advizzerlin6370 [facility] [id number] BY: [employer] [id number] COMPREHENSIVE (91820) ALT (SGPT) 20 [iU]/L (Normal) Range: 0-32 AST (SGOT) 16 [iU]/L (Normal) Range: 0-40 Alkaline Phosphatase, S 103 [iU]/L (Normal) Range: 39-117 Bilirubin, Total <0.2 mg/dL (Normal) Range: 0.0-1.2 A/G Ratio 1.7 (Normal) Range: 1.2-2.2 Globulin, Total 2.6 g/dL (Normal) Range: 1.5-4.5 Albumin, Serum 4.4 g/dL (Normal) Range: 3.5-5.5 Protein, Total, Serum 7.0 g/dL (Normal) Range: 6.0-8.5 Calcium, Serum 9.3 mg/dL (Normal) Range: 8.7-10.2 Carbon Dioxide, Total 24 mmol/L (Normal) Range: 18-29 Chloride, Serum 94 mmol/L (Abnormal) Range: 96-106 Potassium, Serum 4.5 mmol/L (Normal) Range: 3.5-5.2 Sodium, Serum 135 mmol/L (Normal) Range: 134-144 BUN/Creatinine Ratio 29 (Abnormal) Range: 9-23 eGFR If Africn Am 175 mL/min/1.73 (Normal) eGFR If NonAfricn Am 152 mL/min/1.73 (Normal) Creatinine, Serum 0.34 mg/dL (Abnormal) Range: 0.57-1.00 BUN 10 mg/dL (Normal) Range: 6-20 Glucose, Serum 137 mg/dL (Abnormal) Range: 65-99 46-Pwo-627373:34 CBC with auto diff Comments: PATIENT NOT FASTINGPERFORMED BY: CB [facility] Ukplif3459 [facility] [id number] BY: BN [facility] [address] [id number] (16954) Immature Grans (Abs) 0.0 {x10E3/uL} (Normal) Range: 0.0-0.1 Immature Granulocytes 0 % (Normal) Baso (Absolute) 0.0 {x10E3/uL} (Normal) Range: 0.0-0.2 Eos (Absolute) 0.1 {x10E3/uL} (Normal) Range: 0.0-0.4 Monocytes(Absolute) 0.8 {x10E3/uL} (Normal) Range: 0.1-0.9 Lymphs (Absolute) 1.1 {x10E3/uL} (Normal) Range: 0.7-3.1 Neutrophils (Absolute) 2.6 {x10E3/uL} (Normal) Range: 1.4-7.0 Basos 0 % (Normal) Eos 2 % (Normal) Monocytes 17 % (Normal) Lymphs 24 % (Normal) Neutrophils 57 % (Normal) Platelets 214 {x10E3/uL} (Normal) Range: 150-379 RDW 13.3 % (Normal) Range: 12.3-15.4 MCHC 32.7 g/dL (Normal) Range: 31.5-35.7 MCH 30.2 pg (Normal) Range: 26.6-33.0 MCV 92 fL (Normal) Range: 79-97 Hematocrit 36.7 % (Normal) Range: 34.0-46.6 Hemoglobin 12.0 g/dL (Normal) Range: 11.1-15.9 RBC 3.97 {x10E6/uL} (Normal) Range: 3.77-5.28 WBC 4.5 {x10E3/uL} (Normal) Range: 3.4-10.8 01-Zzw-772038:34 TRILEPTAL-OXCARBAZEPINE [id number] Comments: PATIENT NOT FASTINGPERFORMED BY: [employer]70 [facility] [id number] BY: [employer] [id number] ([id number]) Oxcarbazepine 23 ug/mL (Normal) Range: 10-35 Comments: Detection Limit = 1 :34 HGB A1C (98272) Comments: PATIENT NOT FASTINGPERFORMED BY: [employer]70 [facility] [id number] BY: [employer] [id number] Hemoglobin A1c 6.1 % (Abnormal) Range: 4.8-5.6 Comments: . Pre-diabetes: 5.7 - 6.4 Diabetes: >6.4 Glycemic control for adults with diabetes: <7.0 47-Vdh-744105:34 CALCIFIDIOL (91662) VIT D Comments: PATIENT NOT FASTINGPERFORMED BY: [employer]) LabB[facility]atsrp Evfbdf2315 [facility] [id number] BY: [employer] [id number] 25 Vitamin D, 25-Hydroxy 49.1 ng/mL (Normal) Range: 30.0-100.0 Comments: Vitamin D deficiency has been defined by the [place] of[place]icine and an Endocrine Society practice guideline as alevel of serum 25-OH vitamin D less than 20 ng/mL (1,2).The Endocrine Society went on to further define vitamin Dinsufficiency as a level between 21 and 29 ng/mL (2).1. IOM ([place] of Medicine). 2010. Dietary reference intakes for calcium and D. [place]: The National Academies Press.2. Gabbi MF, Singh [place], Pollo JOSEPH, et al. Evaluation, treatment, and prevention of vitamin D deficiency: an Endocrine Society clinical practice guideline. JCEM. 2010; 96(7):1911-30. 32-Tuj-309758:15 Culture, Throat Comments: [facility] [address] [place], [address] CUT See Note (Normal) Comments: Culture, ThroatMixed normal respiratory jasper. No Haemophilus, Streptococcus pneumoniae, beta-hemolytic Streptococcus or Staphylococcus aureus isolated. Copy of report sent to Infection Control Pr inter [id number] 01/04/17 1408 NSTANSLOS. ORGANISM 1: Serratia marcescensAmount Growth 1+ Serratia marcescens: REACTION Amoxacillin/Clavulanic Acid $ >=32 R Cefazolin $ >=64 R Cefepime $ <=1 S Ceftriaxone $ <=1 S Ciprofloxacin $ <=0.25 S Ertapenim $$$ <=0.5 S Gentamicin $ <=1 S Levofloxacin $ 0.5 S Tobramycin $ <=1 S Trimethoprim/Sulfametho $ <=20 S(NF) indicates non-formulary drug at [facility]. Approval by Infec tious Disease Specialist required before non-formulary drugs may be ordered and/or dispensed. 83-Eov-81352:30 Culture, Wound Comments: [facility] [address] [place], [address] CUW See Note (Normal) Comments: Comments: COLLECTED FROM TRACHEA STOMA/DX THICK SPUTUMGram StainGram Stain No organisms seen Wound CultureNo Haemophilus, Streptococcus pneumoniae, beta-hemolytic Streptococcus or Staphylococcus aureu s isolated. Copy of report sent to Infection Control Printer [id number] 12/09/16 1436 DCANNON. ORGANISM 1: Serratia marcescensAmount Growth 1+ ORGANISM 2: Pseudomonas aeroginosaAmoun t Growth 1+ Serratia marcescens: REACTION Amikacin $ <=2 S Amoxacillin/Clavulanic Acid $ >=32 R Az treonam $$$ 2 S Cefazolin $ >=64 R Cefepime $ <=1 S Cefoxitin *NF $$ >=64 R Cefotaxime $ 4 S Cefotetan $$ >=64 R Ceftriaxone $ 4 S Ciprofloxacin $ 0.5 S Ertapenim $$$ 2 S Gentamicin $ <=1 S Levofloxacin $ 2 S Meropenem $ <=0.25 S Tigecycline $$$$ 1 S Tetracycline NF 4 S Tobramycin $ <=1 S Trimethop rim/Sulfametho $ <=20 S(NF) indicates non-formulary drug at [facility]. Approval by Infectious Disease Specialist required before non-formulary drugs may be ordered and/or dispensed. Pseudomonas aeroginosa: REACTION Cefepime $ <=1 S Ceftazidime *NF <=1 S Ciprofloxacin $ 0.5 S Gentamicin $ <=1 S Imipenem *NF 1 S Levofloxacin $ 1 S Piperacillin/Tazobactam $$ 8 S Tobramycin $ <=1 S(NF) indicates non-formulary drug at [facility]. Approval b y Infectious Disease Specialist required before non-formulary drugs may be ordered and/or dispensed. :37 Base Excess ISTAT Comments: [place] [address] [place] [address] BE ISTAT 6 mmol/L (Abnormal) 60-Dck-698392:37 Bicarbonate ISTAT Comments: [place] [address] [place], [place] [address] HCO3 ISTAT 30 mmol/L (Abnormal) Range: 22-26 Comments: Site = R BrachialAllens Test = NAMode = A-CDevice = VentFIO2 = 40Results To = ED MDTime Given = 2350MV = 4.5VT = 250RR = 21PEEP = 7 :37 Blood Gas Specimen Type Comments: [place] [address] [place] [address] BLD GAS TYPE ART (Normal) 39-Hbk-340242:37 pCO2 - ISTAT 40.0 {mmHg} (Normal) Comments: [place] [address] [address] [address] Range: 35-45 14-Har-431219:37 pH - I-STAT 7.48 (Abnormal) Comments: [place] [address] [address] [address] Range: 7.35-7.45 38-Upr-839211:37 PO2 I-STAT 65 {mmHG} (Abnormal) Comments: [place] [address] [address] [address] Range: 75-100 :37 SO2 ISTAT 94 % (Abnormal) Comments: [place] [address] [address] [address] Range: 95-99 :37 Total Carbon Dioxide ISTAT Comments: [place] [address] [address] [address] TOTAL CO2 ISTAT 31 mmol/L (Normal) 57-Ejb-650389:55 Basic Metabolic Profile (BMP) Comments: [place] [address] [address], [address] GAP 5 (Normal) Range: 5-15 CO2 27.0 mmol/L (Normal) Range: 21.0-32.0 CL 103 mmol/L (Normal) Range: 98-107 K 4.5 mmol/L (Normal) Range: 3.5-5.1 Comments: Moderate Hemolysis, Result may be falsely increased. NA 135 mmol/L (Abnormal) Range: 136-145 CA 8.9 mg/dL (Normal) Range: 8.5-10.1 BUN/CRE 21.8 {RATIO} (Abnormal) Range: 10-20 Estimated CRCL 193.51 ml/min (Normal) EST GFR - AA 273 mL/min (Normal) Comments: GFR Calc EST GFR 226 mL/min (Normal) Comments: Non- GFR Calc CREAT,SERUM 0.37 mg/dL (Abnormal) Range: 0.55-1.02 Comments: The validity of the calculated GFR AND GFRAA in patients over70 years has not been determined. Clinical correlation isessential. BUN 8 mg/dL (Normal) Range: 7-18 GLU 79 mg/dL (Normal) Range: 70-110 :55 CBC W/Diff, Automated Comments: [facility] [address] [place], [address] Absolute Lymph 1.51 {X10_3/ul} (Normal) Range: 0.83-4.51 Absolute Neut 2.2 {X10_3/uL} (Normal) Range: 2.0-7.7 IM GRAN % 0.400 % (Normal) Range: 0.0-0.9 Comments: IG% - Immature Granulocytes (promyelocytes, myelocytes andmetamyelocytes) > 1% indicates that a LEFT SHIFT is Present. BASO% 0.7 % (Normal) Range: 0-1 EO% 4.0 % (Normal) Range: 0-5 MONO% 13.6 % (Abnormal) Range: 0-10 LY% 33.2 % (Normal) Range: 19-41 NEUT% 48.1 % (Normal) Range: 47-70 MPV 11.3 fL (Normal) Range: 6.2-12.0 PLT 148 K/mm3 (Abnormal) Range: 150-450 RDW SD 40.9 fL (Normal) Range: 35.1-43.9 RDW CV 12.3 % (Normal) Range: 11.6-14.6 MCHC 34.1 {g/gl} (Normal) Range: 32-36 MCH 31.6 pg (Normal) Range: 27.0-32.0 MCV 92.6 fL (Normal) Range: 81-99 HCT 36.4 % (Abnormal) Range: 37-47 HGB 12.4 g/dL (Normal) Range: 12.0-15.0 RBC 3.93 {M/mm3} (Abnormal) Range: 4.2-5.4 WBC 4.6 K/mm3 (Normal) Range: 4.4-11.0 :52 Anaerobic and Aerobic Comments: PERFORMED BY: [facility]brg[facility] [id number] Information: buttock SRC:WO Culture Antimicrobial MIHEAD (Normal) Comments: S = Susceptible; I = Intermediate; R = Resistant P = Positive; N = Negative MICS are expressed in micrograms per mL Antibiotic RSLT#1 RSLT#2 RS Susceptibility LT#3 RSLT#4Amoxicillin/Clavulanic Acid SAmpicillin RCefazolin RCefepime SCeftriaxone SCefuroxime SCiprofloxacin S SClindamycin RErtapenem SErythromycin RGentamicin S SImipenem SLevofloxacin S SLinezolid SMoxifloxacin SOxacillin S Penicillin RPiperacillin SQuinupristin/Dalfopristin SRifampin STetracycline S STo bramycin STrimethoprim/Sulfa S SVancomycin S Result 3 Mixed skin jasper Comments: Heavy growth (Normal) Result 2 Staphylococcus aureus Comments: Heavy growthBased on resistance to penicillin and susceptibility to oxacillinthis isolate would be susceptible to:* Penicillinase-stable penicillins; such as: Cloxacillin Dicloxacillin Nafcilli (Abnormal) n* Beta-lactam/beta-lactamase inhibitor combinations; such as: Amoxicillin-clavulanic acid Ampicillin-sulbactam* Antistaphylococcal cephems; such as: Cefaclor Cefuroxime* Antistaphylococcal carbapenems; such as: Imipenem Meropenem Result 1 Klebsiella oxytoca Comments: Heavy growth (Abnormal) Aerobic Culture Final report (Abnormal) Result 1 NANG72 (Normal) Comments: No anaerobic growth in 72 hours. Anaerobic Culture Final report (Normal) 3-Grj-900231:39 CBC With Differential/Platelet Comments: PERFORMED BY: CB [facility] Dpdvan9377 [facility] [id number] BY: [facility] [address] [id number] Immature Grans (Abs) 0.0 {x10E3/uL} (Normal) Range: 0.0-0.1 Immature Granulocytes 0 % (Normal) Baso (Absolute) 0.0 {x10E3/uL} (Normal) Range: 0.0-0.2 Eos (Absolute) 0.1 {x10E3/uL} (Normal) Range: 0.0-0.4 Monocytes(Absolute) 0.7 {x10E3/uL} (Normal) Range: 0.1-0.9 Lymphs (Absolute) 1.1 {x10E3/uL} (Normal) Range: 0.7-3.1 Neutrophils (Absolute) 3.2 {x10E3/uL} (Normal) Range: 1.4-7.0 Basos 0 % (Normal) Eos 3 % (Normal) Monocytes 13 % (Normal) Lymphs 22 % (Normal) Neutrophils 62 % (Normal) Platelets 244 {x10E3/uL} (Normal) Range: 150-379 RDW 12.9 % (Normal) Range: 12.3-15.4 MCHC 33.5 g/dL (Normal) Range: 31.5-35.7 MCH 30.7 pg (Normal) Range: 26.6-33.0 MCV 92 fL (Normal) Range: 79-97 Hematocrit 36.4 % (Normal) Range: 34.0-46.6 Hemoglobin 12.2 g/dL (Normal) Range: 11.1-15.9 RBC 3.97 {x10E6/uL} (Normal) Range: 3.77-5.28 WBC 5.1 {x10E3/uL} (Normal) Range: 3.4-10.8 6-Zjw-397009:39 Comp. Metabolic Panel Comments: PERFORMED BY: CB [facility] Jwkndb4082 [facility] [id number] BY: BN [facility] [address] [id number] (14) ALT (SGPT) 27 [iU]/L (Normal) Range: 0-32 AST (SGOT) 16 [iU]/L (Normal) Range: 0-40 Alkaline Phosphatase, S 127 [iU]/L (Abnormal) Range: 39-117 Bilirubin, Total <0.2 mg/dL (Normal) Range: 0.0-1.2 A/G Ratio 1.7 (Normal) Range: 1.1-2.5 Globulin, Total 2.7 g/dL (Normal) Range: 1.5-4.5 Albumin, Serum 4.7 g/dL (Normal) Range: 3.5-5.5 Protein, Total, Serum 7.4 g/dL (Normal) Range: 6.0-8.5 Calcium, Serum 9.6 mg/dL (Normal) Range: 8.7-10.2 Carbon Dioxide, Total 23 mmol/L (Normal) Range: 18-29 Chloride, Serum 95 mmol/L (Abnormal) Range: 97-108 Potassium, Serum 4.1 mmol/L (Normal) Range: 3.5-5.2 Sodium, Serum 135 mmol/L (Normal) Range: 134-144 BUN/Creatinine Ratio 29 (Abnormal) Range: 8-20 eGFR If Africn Am 175 mL/min/1.73 (Normal) eGFR If NonAfricn Am 152 mL/min/1.73 (Normal) Creatinine, Serum 0.34 mg/dL (Abnormal) Range: 0.57-1.00 BUN 10 mg/dL (Normal) Range: 6-20 Glucose, Serum 65 mg/dL (Normal) Range: 65-99 :39 Oxcarbazepine (Trileptal),S Comments: PERFORMED BY: [employer] [facility] [id number] BY: [employer] [id number] Oxcarbazepine 24 ug/mL (Normal) Range: 10-35 Comments: Detection Limit = 1 :39 TSH 1.640 {uIU/mL} Comments: PERFORMED BY: [employer] [facility] [id number] BY: [employer] [id number] (Normal) Range: 0.450-4.500 :39 Vitamin B12 and Folate Comments: PERFORMED BY: [employer] [facility] [id number] BY: [employer] [id number] Folate (Folic Acid), 8.0 ng/mL (Normal) Comments: A serum folate concentration of less than 3.1 ng/mL isconsidered to represent clinical deficiency. Serum Vitamin B12 1048 pg/mL Range: 211-946 (Abnormal) : Vitamin D, 40.7 ng/mL (Normal) Comments: PERFORMED BY: CB [facility] Fbhyiz[address] [facility] [id number] BY: BN [facility] Dhvrziweip9045 [facility] [id number] 39 25-Hydroxy Range: 30.0-100.0 Comments: Vitamin D deficiency has been defined by the [place] of[place]icine and an Endocrine Society practice guideline as alevel of serum 25-OH vitamin D less than 20 ng/mL (1,2).The Endocrine Society went on to further define vitamin Dinsufficiency as a level between 21 and 29 ng/mL (2).1. IOM ([place] of Medicine). 2010. Dietary reference intakes for calcium and D. [place]: The National Academies Press.2. Gabbi MF, Singh MCKEON, Pollo JOSEPH, et al. Evaluation, treatment, and prevention of vitamin D deficiency: an Endocrine Society clinical practice guideline. JCEM. 2010; 96(7):1911-30. 99-Zsf-308334:00 Urinalysis, Complete Comments: Order Date: 02/28/16How was Urine Obtained? [facility] [address] [place], [place], [id number] MUCUS, URINE RARE {/hpf} (Normal) BACTERIA 0 SEEN {/hpf} (Normal) SQUAM EPI 0-5 SEEN {/hpf} (Normal) Range: 5-10 RBC-UA 0-5 SEEN {/hpf} (Normal) Range: 0-5 WBC 0-5 SEEN {/hpf} (Normal) Range: 0-5 LEUK ESTERASE 25 /ul (Abnormal) OCCULT BLOOD-UR 50 /ul (Abnormal) NITRITE UR Negative (Normal) UROBILI Normal mg/dL (Normal) PROT DIPSTX Negative mg/dL (Normal) pH UR 8.0 (Normal) Range: 5.0 - 8.0 SP.GR. DIPSTX 1.010 (Normal) Range: 1.002-1.030 KETONE UR Negative mg/dL (Normal) BILIRUBIN URINE Negative mg/dL (Normal) GLUCOSE, UR 50 mg/dL (Abnormal) CLARITY Sl. Cloudy (Normal) COLOR Yellow (Normal) 90-Gtz-263705:00 Basic Metabolic Profile (BMP) Comments: [facility] [address] [place], [place], [address] GAP 8 (Normal) Range: 5-15 CO2 26.0 mmol/L (Normal) Range: 21.0-32.0 CL 95 mmol/L (Abnormal) Range: 98-107 K 4.8 mmol/L (Normal) Range: 3.5-5.1 Comments: Moderate Hemolysis, Result may be falsely increased. NA 129 mmol/L (Abnormal) Range: 136-145 CA 8.7 mg/dL (Normal) Range: 8.5-10.1 BUN/CRE 23.1 {RATIO} (Abnormal) Range: 10-20 Estimated CRCL 175.27 ml/min (Normal) EST GFR - AA 256 mL/min (Normal) Comments: GFR Calc EST GFR 212 mL/min (Normal) Comments: Non- GFR Calc CREAT,SERUM 0.39 mg/dL (Abnormal) Range: 0.55-1.20 Comments: The validity of the calculated GFR AND GFRAA in patients over70 years has not been determined. Clinical correlation isessential. BUN 9 mg/dL (Normal) Range: 7-18 GLU 84 mg/dL (Normal) Range: 70-110 84-Mkt-590229:00 CBC W/Diff, Automated Comments: [facility] [address] [place], [place], [id number] Absolute Lymph 1.11 {X10_3/ul} (Normal) Range: 0.83-4.51 Absolute Neut 3.6 {X10_3/uL} (Normal) Range: 2.0-7.7 IM GRAN % 0.400 % (Normal) Range: 0.0-0.9 Comments: IG% - Immature Granulocytes (promyelocytes, myelocytes andmetamyelocytes) > 1% indicates that a LEFT SHIFT is Present. BASO% 0.2 % (Normal) Range: 0-1 EO% 3.3 % (Normal) Range: 0-5 MONO% 10.4 % (Abnormal) Range: 0-10 LY% 20.3 % (Normal) Range: 19-41 NEUT% 65.4 % (Normal) Range: 47-70 MPV 11.3 fL (Normal) Range: 6.2-12.0 PLT 136 K/mm3 (Abnormal) Range: 150-450 RDW SD 41.0 fL (Normal) Range: 35.1-43.9 RDW CV 12.4 % (Normal) Range: 11.6-14.6 MCHC 34.7 {g/gl} (Normal) Range: 32-36 MCH 32.4 pg (Abnormal) Range: 27.0-32.0 MCV 93.6 fL (Normal) Range: 81-99 HCT 34.9 % (Abnormal) Range: 37-47 HGB 12.1 g/dL (Normal) Range: 12.0-15.0 RBC 3.73 {M/mm3} (Abnormal) Range: 4.2-5.4 WBC 5.5 K/mm3 (Normal) Range: 4.4-11.0 01-Ipz-914112:00 Lactic Acid Comments: [facility] [address] [place], [place], [address]([phone] LACTIC ACID 1.6 mmol/L (Normal) Range: 0.4-2.0 91-Qqq-067502:00 Lipase Comments: [facility] [address] [place], [place], [address]([phone] LIPASE 177 U/L (Normal) Range: 73-393 98-Bwh-656046:00 Liver Profile Comments: [facility] [address] [place], [place], [phone] BILI 0.08 mg/dL (Normal) Range: 0.00-0.30 T BILI 0.20 mg/dL (Normal) Range: 0.20-1.00 ALT 22 U/L (Normal) Range: 12-78 ALK P 120 U/L (Normal) Range: 50-136 AST 29 U/L (Normal) Range: 15-37 Comments: Moderate Hemolysis, Result may be falsely increased. GLOB 3.6 g/dL (Abnormal) Range: 2.3-3.5 ALB 3.8 g/dL (Normal) Range: 3.4-5.0 T PROT 7.4 g/dL (Normal) Range: 6.4-8.2 :30 CDIFF (Molecular) Comments: [facility] [address] [place], [place], [id number] CDIFF See Note (Normal) Comments: Cdiff-MolecularC. Diff DNA Negative- No toxigenic C. Diff DNA Detected :30 ENTERIC PATHOGEN PANEL STOOL Comments: [facility] [address], [place], [id number] EP PANEL See Note (Normal) Comments: EP PANEL STOOLNot detected for Campylobacter group, Salmonella species, Shigella species, Vibrio Group, Yersinia enterocolitica, EHEC (Shiga Toxin 1, Shiga Toxin 2), Norovirus Gl/Gll, and Ro tavirus A. Other common stool pathogens are not detected on this panel include: Aeromonas/Plesiomonas or parasites. Order testing for these organisms separately if suspected. This is an amplified DNA test which makes it both specific and sensitive. CAMPYLOBACTER Not DetectedSalmonella Not DetectedShigella sp. Not DetectedShiga Toxin Not Dete ctedYersinia Not DetectedVIBRIO Not DetectedNorovirus Not DetectedRotavirus Not Detected :30 Stool Lactoferrin/WBC Comments: [facility] [address] [place] [address], [id number] WBCST See Note (Normal) Comments: Stool Lacto/WBCFecal WBC Lactoferrin Negative: No Fecal WBC Lactoferrin present :30 Stool Occult Blood iFOB Comments: [address], [id number] STOB See Note (Normal) Comments: STOB iFOBOccult Blood Negative 83-Eqf-226583:35 Urinalysis, Complete Comments: How was Urine Obtained? [facility]WC[facility] [address]df[address]qv9756 [facility] [place], [address] MUCUS, URINE 0 SEEN {/hpf} (Normal) BACTERIA 3+ {/hpf} (Normal) TRANSITIONAL EP 0-5 SEEN {/hpf} (Normal) Range: 0-5 SQUAM EPI 10-25 SEEN {/hpf} (Normal) Range: 5-10 RBC-UA 0-5 SEEN {/hpf} (Normal) Range: 0-5 WBC 10-25 SEEN {/hpf} (Normal) Range: 0-5 LEUK ESTERASE 100 /ul (Abnormal) OCCULT BLOOD-UR 10 /ul (Abnormal) NITRITE UR Negative (Normal) UROBILI Normal mg/dL (Normal) PROT DIPSTX Negative mg/dL (Normal) pH UR 8.0 (Normal) Range: 5.0 - 8.0 SP.GR. DIPSTX 1.010 (Normal) Range: 1.002-1.030 KETONE UR Negative mg/dL (Normal) BILIRUBIN URINE Negative mg/dL (Normal) GLUCOSE, UR Normal mg/dL (Normal) CLARITY Cloudy (Normal) COLOR Yellow (Normal) 01-Mob-838935:00 CBC W/Diff, Automated Comments: [facility] [address] [place], [place], [id number] SMEAR COMMENT SCANNED (Normal) Comments: LYMPHOPENIA NOTED Absolute Lymph 0.36 {X10_3/ul} (Abnormal) Range: 0.83-4.51 Absolute Neut 5.4 {X10_3/uL} (Normal) Range: 2.0-7.7 IM GRAN % 0.100 % (Normal) Range: 0.0-0.9 Comments: IG% - Immature Granulocytes (promyelocytes, myelocytes andmetamyelocytes) > 1% indicates that a LEFT SHIFT is Present. BASO% 0.1 % (Normal) Range: 0-1 EO% 0.9 % (Normal) Range: 0-5 MONO% 14.5 % (Abnormal) Range: 0-10 LY% 5.3 % (Abnormal) Range: 19-41 NEUT% 79.1 % (Abnormal) Range: 47-70 MPV 10.6 fL (Normal) Range: 6.2-12.0 PLT 182 K/mm3 (Normal) Range: 150-450 RDW SD 41.3 fL (Normal) Range: 35.1-43.9 RDW CV 12.2 % (Normal) Range: 11.6-14.6 MCHC 33.7 {g/gl} (Normal) Range: 32-36 MCH 31.6 pg (Normal) Range: 27.0-32.0 MCV 93.6 fL (Normal) Range: 81-99 HCT 40.9 % (Normal) Range: 37-47 HGB 13.8 g/dL (Normal) Range: 12.0-15.0 RBC 4.37 {M/mm3} (Normal) Range: 4.2-5.4 WBC 6.8 K/mm3 (Normal) Range: 4.4-11.0 94-Xwx-268219:00 Comprehensive Metabolic Profil Comments: [facility] [address] [place], [address] GAP 9 (Normal) Range: 5-15 CO2 29.0 mmol/L (Normal) Range: 21.0-32.0 CL 101 mmol/L (Normal) Range: 98-107 K 4.5 mmol/L (Normal) Range: 3.5-5.1 Comments: Slight Hemolysis, Result may be falsely increased. NA 139 mmol/L (Normal) Range: 136-145 T BILI 0.10 mg/dL (Abnormal) Range: 0.20-1.00 ALT 31 U/L (Normal) Range: 12-78 ALK P 147 U/L (Abnormal) Range: 50-136 AST 18 U/L (Normal) Range: 15-37 Comments: Slight Hemolysis, Result may be falsely increased. CA 9.3 mg/dL (Normal) Range: 8.5-10.1 A/G 1.1 {RATIO} (Normal) Range: 0.9-2.4 GLOB 4.0 g/dL (Abnormal) Range: 2.3-3.5 ALB 4.5 g/dL (Normal) Range: 3.4-5.0 T PROT 8.5 g/dL (Abnormal) Range: 6.4-8.2 BUN/CRE 14.8 {RATIO} (Normal) Range: 10-20 Estimated CRCL 144.43 ml/min (Normal) EST GFR - AA 204 mL/min (Normal) Comments: GFR Calc EST GFR 169 mL/min (Normal) Comments: Non- GFR Calc CREAT,SERUM 0.47 mg/dL (Abnormal) Range: 0.55-1.20 Comments: The validity of the calculated GFR AND GFRAA in patients over70 years has not been determined. Clinical correlation isessential. BUN 7 mg/dL (Normal) Range: 7-18 GLU 84 mg/dL (Normal) Range: 70-110 32-Idh-182250:00 Lactic Acid Comments: [facility] [address] [place], [place], [id number] LACTIC ACID 2.6 mmol/L (Abnormal) Range: 0.4-2.0 72-Xym-869683:00 Partial Thromboplast Time Comments: [facility] [address] [place], [place], [id number] PTT 26.7 s (Normal) Range: 24.1-36.2 62-Uxk-047152:00 Prothrombin Time w/INR Comments: [facility] [address] [place], [place], [address] INR 1.0 (Normal) PROTIME 13.1 s (Normal) Range: 11.7-14.9 20-Jan-20161:25 PREALBUMIN (96243) Comments: PERFORMED BY: [facility] Nvyruq8557 [facility] [id number] Prealbumin 27 mg/dL (Normal) Range: 9-31 Comments: Effective January 27, 2016 the reference interval for Prealbumin will be changing to: 0 - 30 days 7 - 39 1 month - 12 years 11 - 26 13 - 17 years 13 - 32 18 - 40 years 14 - 35 41 - 50 years 12 - 34 51 - 70 years 10 - 36 >70 years 9 - 32 [id number]-Duz-[id number] Clostridium difficile Toxin Comments: PERFORMED BY: [facility] [id number] [facility] [id number] A+B, EIA (23601) C difficile Toxins A+B, EIA Negative (Normal) [id number]-[id number]:00 Culture, Urine Comments: [facility] [id number] [place], [place], [id number] CUUR See Note (Normal) Comments: Urine CultureCulture exhibits no growth. 29-Gwh-[id number]:00 Urinalysis, Complete Comments: How was Urine Obtained? [facility] [id number] [place], [place], [id number] MUCUS, URINE 0 SEEN {/hpf} (Normal) BACTERIA RARE {/hpf} (Normal) SQUAM EPI 0 SEEN {/hpf} (Normal) Range: 5-10 RBC-UA 0-5 SEEN {/hpf} (Normal) Range: 0-5 WBC 0-5 SEEN {/hpf} (Normal) Range: 0-5 LEUK ESTERASE 100 /ul (Abnormal) OCCULT BLOOD-UR 25 /ul (Abnormal) NITRITE UR Negative (Normal) UROBILI Normal mg/dL (Normal) PROT DIPSTX Negative mg/dL (Normal) pH UR 8.0 (Normal) Range: 5.0 - 8.0 SP.GR. DIPSTX 1.015 (Normal) Range: 1.002-1.030 KETONE UR 5 mg/dL (Abnormal) BILIRUBIN URINE Negative mg/dL (Normal) GLUCOSE, UR 1000 mg/dL (Abnormal) CLARITY Sl. Cloudy (Normal) COLOR Yellow (Normal) :30 Culture, Urine Comments: [facility] [id number] [facility] [address] [place], [place], [id number] CUUR See Note (Normal) Comments: Urine CultureORGANISM 1: Enterococcus faecalisColony Count >100,000 Enterococcus faecalis: REACTION Ampicillin $ <=2 S Benzylpenicillin NF 2 S Ciprofloxacin $ <=0.5 S Gentamicin SYN-S S Levofloxacin $ 1 S Linezolid $$$$ 2 S Nitrofurantoin $ <=16 S Streptomycin $ SYN- S S Tetracycline NF >=16 R Vancomycin $ 1 S(NF) indicates non-formulary drug at [facility]. Approval by Infectious Disease Specialist required before non-formulary drugs may be ordered and/or dispensed. * CLSI guidelines does not recommend testing of cephalosporins. This interpretation is deduced from Beta-lactam/penicillin results. 69-Xwa-717100:30 Urinalysis, Complete Comments: How was Urine Obtained? Urine, [facility] [address]frfkudz[address] [place], [place], [id number] MUCUS, URINE 0 SEEN {/hpf} (Normal) BACTERIA 2+ {/hpf} (Normal) SQUAM EPI 0-5 SEEN {/hpf} (Normal) Range: 5-10 RBC-UA 10-25 SEEN {/hpf} (Normal) Range: 0-5 WBC >100 SEEN {/hpf} (Normal) Range: 0-5 LEUK ESTERASE 500 /ul (Abnormal) OCCULT BLOOD-UR 250 /ul (Abnormal) NITRITE UR Negative (Normal) UROBILI Normal mg/dL (Normal) PROT DIPSTX 100 mg/dL (Abnormal) pH UR 7.0 (Normal) Range: 5.0 - 8.0 SP.GR. DIPSTX 1.010 (Normal) Range: 1.002-1.030 KETONE UR Negative mg/dL (Normal) BILIRUBIN URINE Negative mg/dL (Normal) GLUCOSE, UR 50 mg/dL (Abnormal) CLARITY Sl. Cloudy (Normal) COLOR Yellow (Normal) 11-Kxf-633232:00 ENTERIC PATHOGEN PANEL STOOL Comments: [facility] [address] [place], [place], [id number] EP PANEL See Note (Normal) Comments: RESULTS CALLED TO DR. HOUSTON 09/10/15 @1952 BY THADDEUS.EP PANEL STOOLNot detected for Campylobacter group, Salmonella species, Shigella species, Vibrio Group, Yersinia enterocolitica, EHEC (Shiga Toxin 1, Shiga Toxin 2), Norovirus Gl/Gll, and Rotavirus A. Other common stool pathogens are not detected on this panel include: Aeromonas/Plesiomonas or parasites. Order testing for these organisms separa tel if suspected. This is an amplified DNA test which makes it both specific and sensitive. CAMPYLOBACTER Not DetectedSalmonella Not DetectedShigella sp. Not DetectedShiga Toxin Not DetectedYersinia Not DetectedVIBRIO Not DetectedNorovirus Not DetectedRotavirus Not Detected 50-Ziw-794049:00 Stool Lactoferrin/WBC Comments: [facility] [address] [place], [place], [id number] WBCST See Note (Normal) Comments: RESULTS CALLED TO DR. HOUSTON 09/10/15 @3 BY THADDEUS.Stool Lacto/WBCFecal WBC Lactoferrin Negative: No Fecal WBC Lactoferrin present 28-Nxs-719247:00 Stool Occult Blood iFOB Comments: [facility] [address] [place], [place], [id number] STOB See Note (Normal) Comments: RESULTS CALLED TO DR. HOUSTON 09/10/15 @3 BY THADDEUS.STOB iFOBOccult Blood Negative :29 CBC with auto diff Comments: PERFORMED BY: [employer] CenterPikyst8969 [facility] [id number] BY: [address] [id number] ([address]) Immature Grans (Abs) 0.0 {x10E3/uL} (Normal) Range: 0.0-0.1 Immature Granulocytes 0 % (Normal) Baso (Absolute) 0.0 {x10E3/uL} (Normal) Range: 0.0-0.2 Eos (Absolute) 0.1 {x10E3/uL} (Normal) Range: 0.0-0.4 Monocytes(Absolute) 0.5 {x10E3/uL} (Normal) Range: 0.1-0.9 Lymphs (Absolute) 1.1 {x10E3/uL} (Normal) Range: 0.7-3.1 Neutrophils (Absolute) 3.1 {x10E3/uL} (Normal) Range: 1.4-7.0 Basos 0 % (Normal) Eos 2 % (Normal) Monocytes 11 % (Normal) Lymphs 22 % (Normal) Neutrophils 65 % (Normal) Platelets 212 {x10E3/uL} (Normal) Range: 150-379 RDW 13.1 % (Normal) Range: 12.3-15.4 MCHC 33.9 g/dL (Normal) Range: 31.5-35.7 MCH 31.0 pg (Normal) Range: 26.6-33.0 MCV 91 fL (Normal) Range: 79-97 Hematocrit 35.1 % (Normal) Range: 34.0-46.6 Hemoglobin 11.9 g/dL (Normal) Range: 11.1-15.9 RBC 3.84 {x10E6/uL} (Normal) Range: 3.77-5.28 WBC 4.8 {x10E3/uL} (Normal) Range: 3.4-10.8 :29 METABOLIC PANEL, Comments: PERFORMED BY: [employer] CenterMddekn1898 [facility] [id number] BY: [address] [id number] COMPREHENSIVE (54910) ALT (SGPT) 17 [iU]/L (Normal) Range: 0-32 AST (SGOT) 12 [iU]/L (Normal) Range: 0-40 Alkaline Phosphatase, S 118 [iU]/L (Abnormal) Range: 39-117 Bilirubin, Total <0.2 mg/dL (Normal) Range: 0.0-1.2 A/G Ratio 2.0 (Normal) Range: 1.1-2.5 Globulin, Total 2.3 g/dL (Normal) Range: 1.5-4.5 Albumin, Serum 4.5 g/dL (Normal) Range: 3.5-5.5 Protein, Total, Serum 6.8 g/dL (Normal) Range: 6.0-8.5 Calcium, Serum 8.9 mg/dL (Normal) Range: 8.7-10.2 Carbon Dioxide, Total 22 mmol/L (Normal) Range: 18-29 Chloride, Serum 92 mmol/L (Abnormal) Range: 97-108 Potassium, Serum 4.2 mmol/L (Normal) Range: 3.5-5.2 Sodium, Serum 133 mmol/L (Abnormal) Range: 134-144 BUN/Creatinine Ratio 43 (Abnormal) Range: 8-20 eGFR If Africn Am 188 mL/min/1.73 (Normal) eGFR If NonAfricn Am 163 mL/min/1.73 (Normal) Creatinine, Serum 0.28 mg/dL (Abnormal) Range: 0.57-1.00 BUN 12 mg/dL (Normal) Range: 6-20 Glucose, Serum 73 mg/dL (Normal) Range: 65-99 20-Jan-20161:29 CALCIFIDIOL (91896) VIT D Comments: PERFORMED BY: [facility] Rbfnkg3889 [facility] [id number] BY: [facility] [address] [id number] 25 Vitamin D, 25-Hydroxy 39.5 ng/mL (Normal) Range: 30.0-100.0 Comments: Vitamin D deficiency has been defined by the [place] ofMedicine and an Endocrine Society practice guideline as alevel of serum 25-OH vitamin D less than 20 ng/mL (1,2).The Endocrine Society went on to further define vitamin Dinsufficiency as a level between 21 and 29 ng/mL (2).1. IOM ([place] of Medicine). 2010. Dietary reference intakes for calcium and D. [place]: The National Academies Press.2. Gabbi MF, Singh MCKEON, Pollo JOSEPH, et al. Evaluation, treatment, and prevention of vitamin D deficiency: an Endocrine Society clinical practice guideline. JCEM. 2010; 96(7):1911-30. :29 TRILEPTAL-OXCARBAZEPINE [id number] Comments: PERFORMED BY: CB [facility] Rlxyda1133 [facility] [id number] BY: [facility] Knrkepwfbp1701 [facility] [id number] (64074) Oxcarbazepine 38 ug/mL (Abnormal) Range: 10-35 Comments: Detection Limit = 1 17-Eug-344990:30 CBC W/Diff, Automated Comments: [facility] [address] [place], [place], [address] Absolute Lymph 0.90 {X10_3/ul} (Normal) Range: 0.83-4.51 Absolute Neut 3.6 {X10_3/uL} (Normal) Range: 2.0-7.7 IM GRAN % 0.400 % (Normal) Range: 0.0-0.9 Comments: IG% - Immature Granulocytes (promyelocytes, myelocytes andmetamyelocytes) > 1% indicates that a LEFT SHIFT is Present. BASO% 0.4 % (Normal) Range: 0-1 EO% 1.2 % (Normal) Range: 0-5 MONO% 10.8 % (Abnormal) Range: 0-10 LY% 17.3 % (Abnormal) Range: 19-41 NEUT% 69.9 % (Normal) Range: 47-70 MPV 11.0 fL (Normal) Range: 6.2-12.0 PLT 203 K/mm3 (Normal) Range: 150-450 RDW SD 38.2 fL (Normal) Range: 35.1-43.9 RDW CV 11.4 % (Abnormal) Range: 11.6-14.6 MCHC 34.4 {g/gl} (Normal) Range: 32-36 MCH 32.3 pg (Abnormal) Range: 27.0-32.0 MCV 93.8 fL (Normal) Range: 81-99 HCT 36.0 % (Abnormal) Range: 37-47 HGB 12.4 g/dL (Normal) Range: 12.0-15.0 RBC 3.84 {M/mm3} (Abnormal) Range: 4.2-5.4 WBC 5.2 K/mm3 (Normal) Range: 4.4-11.0 91-Rqh-940131:30 Comprehensive Metabolic Profil Comments: [facility] [address] [place], [place], [address] GAP 8 (Normal) Range: 5-15 CO2 26.0 mmol/L (Normal) Range: 21.0-32.0 CL 96 mmol/L (Abnormal) Range: 98-107 K 4.0 mmol/L (Normal) Range: 3.5-5.1 NA 130 mmol/L (Abnormal) Range: 136-145 T BILI 0.20 mg/dL (Normal) Range: 0.20-1.00 ALT 17 U/L (Normal) Range: 12-78 ALK P 125 U/L (Normal) Range: 50-136 AST 8 U/L (Abnormal) Range: 15-37 CA 8.5 mg/dL (Normal) Range: 8.5-10.1 A/G 1.1 {RATIO} (Normal) Range: 0.9-2.4 GLOB 3.4 g/dL (Normal) Range: 2.3-3.5 ALB 3.7 g/dL (Normal) Range: 3.4-5.0 T PROT 7.1 g/dL (Normal) Range: 6.4-8.2 BUN/CRE 24.8 {RATIO} (Abnormal) Range: 10-20 EST GFR - AA 182 mL/min (Normal) Comments: GFR Calc EST GFR 151 mL/min (Normal) Comments: Non- GFR Calc CREAT,SERUM 0.52 mg/dL (Abnormal) Range: 0.55-1.20 Comments: The validity of the calculated GFR AND GFRAA in patients over70 years has not been determined. Clinical correlation isessential. BUN 13 mg/dL (Normal) Range: 7-18 GLU 225 mg/dL (Abnormal) Range: 70-110 Comments: Glucose result greater than or equal to 200 mg/dLsuggests DIABETES MELLITUS per A.D.A. criteria. 87-Wpx-185493:30 Lipid Profile Comments: [facility] [address] [place] [place], [id number] VLDL 38 mg/dL (Normal) Range: 5-40 LDL 73 mg/dL (Normal) Range: 0-130 HDL 45 mg/dL (Normal) Comments: Reference Range HDL <40 mg/dL Low HDL Cholesterol HDL >or= 60 mg/dL High HDL Cholesterol TRIG 191 mg/dL (Normal) Comments: Serum Triglycerides Reference Interval Normal <150 mg/dL Borderline high 150 - 199 mg/dL High 200 - 499 mg/dL Very High > or = 500 mg/dL CHOL 156 mg/dL (Normal) Comments: <200 mg/dL Desirable 200-240 mg/dL Borderline >240 mg/dL High Risk 59-Ugs-989579:30 Prealbumin Comments: [facility] [address] [place], [address] PREALBUMIN 26.0 mg/dL (Normal) Range: 20.0-40.0 22-Eag-204487:30 Thyroid Stim Hormone (TSH) Comments: [facility] [address] [place], [address] TSH 1.02 {uIU/mL} (Normal) Range: 0.358-3.74 46-Bpf-866865:30 Trileptal-Oxcarbazepine Comments: [facility] (refer to report for specific site)refer to report for address and phone number TRILEPT [id number] 38 ug/mL (Abnormal) Range: 10-35 Comments: Detection Limit = 1Performed at: - [facility] [address] [id number] Director: Reji Gibson MD, Phone: [phone] 00-Olq-341738:30 Vitamin D,25 Hydroxy Comments: [facility] [address] [place], [id number] Vitamin D 25-OH 38.4 ng/mL (Normal) Comments: Vitamin D 25(OH) Status Range Deficiency <20 ng/mL (50nmol/L) Insuffciency 20 - 30 ng/mL (50 - 75 nmol/L) Sufficiency 30 - 100 ng/mL (75 - 250 nmol/L) Toxicity >100 ng/mL (>250 nmol/L) 4-Std-168306:45 CBC-Complete Blood Cnt No Diff Comments: Test performed at:[facility] [address] [place] [address] MPV 10.5 fL (Normal) Range: 6.2-12.0 PLT 213 K/mm3 (Normal) Range: 150-450 RDW SD 40.5 fL (Normal) Range: 35.1-43.9 RDW CV 11.9 % (Normal) Range: 11.6-14.6 MCHC 34.6 {g/gl} (Normal) Range: 32-36 MCH 32.0 pg (Normal) Range: 27.0-32.0 MCV 92.5 fL (Normal) Range: 81-99 HCT 34.7 % (Abnormal) Range: 37-47 HGB 12.0 g/dL (Normal) Range: 12.0-15.0 RBC 3.75 {M/mm3} (Abnormal) Range: 4.2-5.4 WBC 6.3 K/mm3 (Normal) Range: 4.4-11.0 5-Woa-770120:45 Comprehensive Metabolic Profil Comments: Is Patient Taking Vitamins or Folic Acid Supplements? NTest performed at:[facility] [address] [place] [address] GAP 7 (Normal) Range: 5-15 CO2 29.0 mmol/L (Normal) Range: 21.0-32.0 CL 96 mmol/L (Abnormal) Range: 98-107 K 3.7 mmol/L (Normal) Range: 3.5-5.1 NA 132 mmol/L (Abnormal) Range: 136-145 T BILI 0.10 mg/dL (Normal) Range: 0.00-4.00 ALT 18 U/L (Normal) Range: 12-78 ALK P 130 U/L (Normal) Range: 50-136 AST 8 U/L (Abnormal) Range: 15-37 CA 9.0 mg/dL (Normal) Range: 8.5-10.1 A/G 1.1 {RATIO} (Normal) Range: 0.9-2.4 GLOB 3.5 g/dL (Normal) Range: 2.7-4.2 ALB 3.8 g/dL (Normal) Range: 3.4-5.0 T PROT 7.3 g/dL (Normal) Range: 6.4-8.2 BUN/CRE 17.5 {RATIO} (Normal) Range: 10-20 EST GFR - AA 252 mL/min (Normal) EST GFR 208 mL/min (Normal) CREAT,SERUM 0.4 mg/dL (Abnormal) Range: 0.6-1.0 BUN 7 mg/dL (Normal) Range: 7-18 GLU 120 mg/dL (Abnormal) Range: 70-110 Comments: Fasting Glucose result from 110 to <126 mg/dLsuggests IMPAIRED HOMEOSTASIS per A.D.A. criteria. 0-Cle-627107:45 CRP Comments: Is Patient Taking Vitamins or Folic Acid Supplements? NTest performed at:[facility] Vwtaugjjuv5432 [facility] [place] [address] C-REACTIVE PROT < 2.90 mg/L (Normal) Range: 0.0-3.0 Comments: C-Reactive Protein (CRP) provides useful information for thediagnosis, therapy and monitoring of inflammatory processesand associated diseases. For the evaluation of Relative Riskfor Cardiovascular Dise ase, a High Sensitivity CRP (HSCRP)should be ordered. 5-Ujv-003175:45 Erythrocyte Sed Rate Comments: Test performed at:[facility] Itofjpidss3150 [facility] [place] [address] SED RATE 13 mm/h (Normal) Range: 0-20 1-Zkd-330888:45 Folates, (Folic Acid) Comments: Is Patient Taking Vitamins or Folic Acid Supplements? NTest performed at:[facility] [address] [place] [address] FOLATES 15.70 ng/mL (Normal) Range: 3.1-17.5 2-Ovj-428192:45 Free T3 Comments: Is Patient Taking Vitamins or Folic Acid Supplements? NTest performed at:[facility] [address] [place] [address] FREE T3 2.4 pg/mL (Normal) Range: 2.18-3.98 6-Sdo-107001:45 Miscellaneous Lab Procedure Comments: Test(s) Ordered: OXCARBAZEPINE, #[id number], RED TOP SERUM/RFTest performed at:[facility] [address] [place] [address] MISC Comments: Oxcarbazepine (Trileptal), S Oxcarbazepine 35 ug/mL Ref: Detection Limit=1 TESTING PERFOR MED AT [facility] (Normal) rp. ORIGINAL REPORT ON FILE IN LAB CONTAINS ADDITIONAL TEST SITE INFORMATION. TEST 0-Akg-969048:45 Prealbumin Comments: Is Patient Taking Vitamins or Folic Acid Supplements? NTest performed at:[facility] [address] [place] [address] PREALBUMIN 30.9 mg/dL (Normal) Range: 20.0-40.0 :45 ,Serum,hCG Quali. Comments: Test performed at:[facility] [address] [place] [address] HCGSQUAL NEGATIVE {Negative} (Normal) Range: 0-9 Nonpreg HCG Qual triggr < 1 m[iU]/mL (Normal) :45 Prolactin Comments: Is Patient Taking Vitamins or Folic Acid Supplements? NTest performed at:[facility] [address] [place] [address] PROLACTIN 9.5 ng/mL (Normal) Comments: NORMAL REFERENCE RANGES FEMALE NON- 2.2 - 30.3 ng/mL 8.1 - 347.6 ng/mL POST-MENOPAUSAL 0.7 - 3 1.5 ng/mL MALE 2.5 - 17.4 ng/mLNEW TEST METHOD AND REFERENCE RANGES FEBRUARY 01, 2012:45 T4 Free Direct Comments: Is Patient Taking Vitamins or Folic Acid Supplements? NTest performed at:[facility] [address] [place] [address] T4 FREE DIRECT 0.74 ng/dL (Abnormal) Range: 0.76-1.46 7-Qku-509911:45 Thyroid Stim Hormone (TSH) Comments: Is Patient Taking Vitamins or Folic Acid Supplements? NTest performed at:[facility] [address] [place] [address] TSH 1.39 {uIU/mL} (Normal) Range: 0.358-3.74 :45 Urinalysis, Routine (Dipstick) Comments: How was Urine Obtained? Urine, RandomTest performed at:[facility] [address] [place] [address] LEUK ESTERASE 500 /ul (Abnormal) OCCULT BLOOD-UR Negative /ul (Normal) NITRITE UR Negative (Normal) UROBILI Normal mg/dL (Normal) PROT DIPSTX Negative mg/dL (Normal) pH UR 8.0 (Normal) Range: 5.0 - 8.0 SP.GR. DIPSTX 1.010 (Normal) Range: 1.002-1.030 KETONE UR Negative mg/dL (Normal) BILIRUBIN URINE Negative mg/dL (Normal) GLUCOSE, UR Normal mg/dL (Normal) CLARITY Sl. Cloudy (Normal) COLOR Yellow (Normal) 1-Aub-151567:45 Vitamin B12 1089 pg/mL (Abnormal) Comments: Test performed at:[facility] [address] [place] [address] Range: 211-911 3-Iej-142940:45 Vitamin D,25 Hydroxy Comments: Test performed at:[facility] [address] [place] [address] Vitamin D 25-OH 23.9 ng/mL (Normal) Comments: Vitamin D 25(OH) Status Range Deficiency <20 ng/mL (50nmol/L) Insuffciency 20 - 30 ng/mL (50 - 75 nmol/L) Sufficiency 30 - 100 ng/mL (75 - 250 nmol/L) Toxicity >100 ng/mL (>250 nmol/L) 89-Srs-359659:43 ALBUMIN SERUM (10024) Comments: PATIENT NOT FASTINGPERFORMED BY: [facility] Yldimi1189 [facility] [id number] Albumin, Serum 4.7 g/dL (Normal) Range: 3.5-5.5 92-Gbc-136918:43 PREALBUMIN (63862) Comments: PATIENT NOT FASTINGPERFORMED BY: [facility] Awiokv0957 [facility] [id number] Prealbumin 29 mg/dL (Normal) Range: 20-40 86-Ahh-634713:21 ANJELICA CULTURE-OTHER (33818) Comments: PATIENT NOT FASTINGPERFORMED BY: [facility]6370 [facility] [id number] Information: SRC:THRT [id number] Result 1 RRF (Normal) Comments: Routine respiratory jasper Upper Respiratory Culture Final report (Normal) 50-Iop-079710:43 PROLACTIN (42596) Comments: PATIENT NOT FASTINGPERFORMED BY: [facility] Umaizr2342 [facility] [id number] Prolactin 13.8 ng/mL (Normal) Range: 4.8-23.3 84-Gbs-944547:43 T3, FREE (TRIDOTHYRONINE) (20857) Comments: PATIENT NOT FASTINGPERFORMED BY: [facility] Euptuz6585 [facility] [id number] Triiodothyronine,Free,Serum 3.3 pg/mL (Normal) Range: 2.0-4.4 91-Bch-381849:43 T4, FREE (THYROXINE) (24111) Comments: PATIENT NOT FASTINGPERFORMED BY: [facility] Gcsnwk9294 [facility] [id number] T4,Free(Direct) 1.14 ng/dL (Normal) Range: 0.82-1.77 53-Wrs-631726:43 TSH (10414) Comments: PATIENT NOT FASTINGPERFORMED BY: [facility] [address]rtm[address] [facility] [facility] [address] [id number] Information: [id number] TSH 1.580 {uIU/mL} (Normal) Range: 0.450-4.500 :00 CBCD ANC 1.8 {X10_3/uL} (Abnormal) Range: 2.0-7.7 IG% 0.300 % (Normal) Range: 0.0-0.9 Comments: IG% - Immature Granulocytes (promyelocytes, myelocytes andmetamyelocytes) > 1% indicates that a LEFT SHIFT is Present. B% 0.3 % (Normal) Range: 0-1 E% 3.5 % (Normal) Range: 0-5 M% 14.2 % (Abnormal) Range: 0-10 L% 25.0 % (Normal) Range: 19-41 N% 56.7 % (Normal) Range: 47-70 MPV 11.5 fL (Normal) Range: 6.2-12.0 PLT 54 K/mm3 (Abnormal) Range: 150-450 RDWSD 42.9 fL (Normal) Range: 35.1-43.9 RDWCV 12.5 % (Normal) Range: 11.6-14.6 MCHC 33.9 {g/gl} (Normal) Range: 32-36 MCH 32.0 pg (Normal) Range: 27.0-32.0 MCV 94.3 fL (Normal) Range: 81-99 HCT 39.8 % (Normal) Range: 37-47 HGB 13.5 g/dL (Normal) Range: 12.0-15.0 RBC 4.22 {M/mm3} (Normal) Range: 4.2-5.4 WBC 3.2 K/mm3 (Abnormal) Range: 4.4-11.0 :30 CDIFF See Note (Normal) Comments: FAXED TO YA7.690 C. Diff DNA Positive-Toxigenic C. Difficile DNA Detected :30 CUST SHIGA See Note (Normal) CULST See Note (Normal) Comments: No Salmonella, Shigella, Yersinia or Campylobacter isolated. No significant amount of Staphylococcus aureus or yeast-like organisms isolated. :30 OP See Note (Normal) Comments: OVA AND PARASITES EXAM, ROUTINE These results were obtained using wet preparation(s) and trichrome stained smear. This test does not include testing for Crytosporidium parvum, Cyclo spora, or Mi crosporidia. TESTING PERFORMED AT [facility]. ORIGINAL REPORT ON FILE IN LAB CONTAINS ADDITIONAL TEST SITE INFORMATION. Ova/Parasite Exam NO OVA, CYSTS, OR PARASITES FOUND. : STOB See Note (Normal) Comments: Occult Blood Negative : WBCST See Note (Normal) Comments: Fecal WBC Lactoferrin Negative: No Fecal WBC Lactoferrin present :15 CDIFF See Note (Normal) Comments: C. Diff DNA Negative- No toxigenic C. Diff DNA Detected 9-Yes-512841:55 Oxcarbazepine (Trileptal),S Comments: PERFORMED BY: [address] [id number] BY: [address] [id number] Oxcarbazepine 32 ug/mL (Normal) Range: 10-35 Comments: Detection Limit = 1 :55 CALCIFIDIOL (70623) VIT D Comments: PERFORMED BY: [address] [id number] BY: [address] [id number] Vitamin D, 25-Hydroxy 27.4 ng/mL (Abnormal) Range: 30.0-100.0 Comments: Vitamin D deficiency has been defined by the [place] ofMedicine and an Endocrine Society practice guideline as alevel of serum 25-OH vitamin D less than 20 ng/mL (1,2).The Endocrine Society went on to further define vitamin Dinsufficiency as a level between 21 and 29 ng/mL (2).1. IOM ([place] of Medicine). 2010. Dietary reference intakes for calcium and D. [place]: The National Academies Press.2. Gabbi MF, Singh MCKEON, Pollo JOSEPH, et al. Evaluation, treatment, and prevention of vitamin D deficiency: an Endocrine Society clinical practice guideline. JCEM. 2010; 96(6):1911-30. 9-Ppo-426627:55 Folate (65019) Comments: PERFORMED BY: [employer] [facility] [id number] BY: [employer] [id number] Folate (Folic Acid), Serum 16.3 ng/mL (Normal) Comments: A serum folate concentration of less than 3.1 ng/mL isconsidered to represent clinical deficiency. 5-Ddp-843470:55 VITAMIN B-12 (CYANOCOBALAMIN) Comments: PERFORMED BY: [facility] [id number] BY: [employer] [id number] (10429) Vitamin B12 889 pg/mL (Normal) Range: 211-946 :55 TSH (00698) Comments: PERFORMED BY: [employer] [facility] [id number] BY: [employer] [id number] TSH 1.670 {uIU/mL} (Normal) Range: 0.450-4.500 :55 SED RATE ERYTHROCYTE Comments: PERFORMED BY: [facility] [id number] BY: [employer] [id number] (38221) Sedimentation Rate-Westergren 6 mm/h (Normal) Range: 0-32 :55 METABOLIC PANEL, Comments: PERFORMED BY: MediTAP6370 [facility] [id number] BY: [employer] [id number] COMPREHENSIVE (64369) ALT (SGPT) 11 [iU]/L (Normal) Range: 0-32 AST (SGOT) 11 [iU]/L (Normal) Range: 0-40 Alkaline Phosphatase, S 119 [iU]/L (Abnormal) Range: 42-107 Bilirubin, Total 0.1 mg/dL (Normal) Range: 0.0-1.2 A/G Ratio 1.9 (Normal) Range: 1.1-2.5 Globulin, Total 2.5 g/dL (Normal) Range: 1.5-4.5 Albumin, Serum 4.8 g/dL (Normal) Range: 3.5-5.5 Protein, Total, Serum 7.3 g/dL (Normal) Range: 6.0-8.5 Calcium, Serum 9.6 mg/dL (Normal) Range: 8.7-10.2 Carbon Dioxide, Total 22 mmol/L (Normal) Range: 19-28 Chloride, Serum 98 mmol/L (Normal) Range: 97-108 Potassium, Serum 4.1 mmol/L (Normal) Range: 3.5-5.2 Sodium, Serum 138 mmol/L (Normal) Range: 134-144 BUN/Creatinine Ratio 24 (Abnormal) Range: 8-20 eGFR If Africn Am 173 mL/min/1.73 (Normal) eGFR If NonAfricn Am 150 mL/min/1.73 (Normal) Creatinine, Serum 0.38 mg/dL (Abnormal) Range: 0.57-1.00 BUN 9 mg/dL (Normal) Range: 6-20 Glucose, Serum 64 mg/dL (Abnormal) Range: 65-99 Comments: This serum sample was in contactwith the red cells when received.This may adversely affect serumChemistries. :55 C-REACTIVE PROTEIN (06937) Comments: PERFORMED BY: Advizzerlin6370 [facility] [id number] BY: [employer] InstituteZqkljlaqxp0812 [facility] [id number] C-Reactive Protein, Quant 0.9 mg/L (Normal) Range: 0.0-4.9 6-Doq-002940:55 CBC (AUTO) (12837) Comments: PERFORMED BY: [employer] CenterSbblto8097 [facility] [id number] BY: [employer] [id number] Platelets 213 {x10E3/uL} (Normal) Range: 140-415 Comments: Effective May 22, 2013, the reference intervals for CBC:WBC, Differential Parameters (Neutrophil %, Neutrophil Absolute, Lymphocyte %, Lymphocyte Absolute, Monocyte %, Monocyte Absolute, Eos inophil %, Eosinophil Absolute), and Platelet Counts will be adjusted to maintain consistency with the distribution of these values in the reference population. RDW 12.3 % (Normal) Range: 12.3-15.4 MCH 31.5 pg (Normal) Range: 26.6-33.0 MCHC 33.5 g/dL (Normal) Range: 31.5-35.7 MCV 94 fL (Normal) Range: 79-97 Hematocrit 37.9 % (Normal) Range: 34.0-46.6 Hemoglobin 12.7 g/dL (Normal) Range: 11.1-15.9 RBC 4.03 {x10E6/uL} (Normal) Range: 3.77-5.28 WBC 4.9 {x10E3/uL} (Normal) Range: 4.0-10.5 Comments: Effective May 22, 2013, the reference intervals for CBC:WBC, Differential Parameters (Neutrophil %, Neutrophil Absolute, Lymphocyte %, Lymphocyte Absolute, Monocyte %, Monocyte Absolute, Eos inophil %, Eosinophil Absolute), and Platelet Counts will be adjusted to maintain consistency with the distribution of these values in the reference population. [id number] ANJELICA CULTURE-OTHER ([id number]) Comments: PATIENT NOT FASTINGPERFORMED BY: [employer] CenterHcayzz3109 [facility] [id number] Information: SRC:THRT [id number] Result 1 RRF (Normal) Comments: Routine respiratory jasper Upper Respiratory Culture Final report (Normal) [id number] Rapid Strep Test, Office ([id number]) Rapid Strep Test, Negative (Normal) Office [id number] CDIF See Note (Normal) Comments: A positive result in the glutamate dehydrogenase ofC. Difficile confirms the presence of the organism in a presence of toxigenic C. difficile. An indeterminate result (Antigen Negative/Toxin Positive)wi ll occur in approximaately 10-12% of cases and should betreated as a positive result and retested with a freshspecimen. NOTE that Molecular testing for C. difficile isalso available in these cases. C. DIFF ANTIGENS POSITIVE 98-Vff-498020:30 CDIF See Note (Normal) Comments: RESULTS CALLED TO Shanita LEMUS 07/29/12 MARKUS AYALA.REPORT READ BACK BY ANNY . A positive result in the glutamate dehydrogenase ofC. Difficile confirms the presence of the organism in a presen ce of toxigenic C. difficile. An indeterminate result (Antigen Negative/Toxin Positive)will occur in approximaately 10-12% of cases and should betreated as a positive result and retested with a freshspe cimen. NOTE that Molecular testing for C. difficile isalso available in these cases. C. DIFF ANTIGENS POSITIVE 49-Ytl-781584:00 CDIF See Note (Normal) Comments: A positive result in the glutamate dehydrogenase ofC. Difficile confirms the presence of the organism in a presence of toxigenic C. difficile. An indeterminate result (Antigen Negative/Toxin Positive)wi ll occur in approximaately 10-12% of cases and should betreated as a positive result and retested with a freshspecimen. NOTE that Molecular testing for C. difficile isalso available in these cases. C. DIFF ANTIGENS NEGATIVE :55 CUUR U[facility] Culture exhibits no growth. (Normal) :55 UAC UMUC 0 SEEN {/hpf} (Normal) UBAC 0 SEEN {/hpf} (Normal) UEPIS 0-5 SEEN {/hpf} Range: 5-10 (Normal) URBC 0 SEEN {/hpf} (Normal) Range: 0-5 UWBC 0 SEEN {/hpf} (Normal) Range: 0-5 LEV NEGATIVE (Normal) UOB NEGATIVE (Normal) JOVAN NEGATIVE (Normal) UROBU 1.0 EU/dl (Normal) Range: 0.2 - 1.0 uPROTU NEGATIVE (Normal) HIEN 7.5 (Normal) Range: 5.0-8.0 SGU 1.015 (Normal) Range: 1.002-1.030 KETU 1+ mg/dL (Abnormal) BILIU NEGATIVE (Normal) GLUR 3+ (Abnormal) UCLAR CLEAR (Normal) UCOL STRAW (Normal) 9-Yfw-430006:05 C DIF TOXIN/AG See Note (Normal) Comments: C. DIFF ANTIGENS NEGATIVE 34-Rxd-127540:2 TRILEPT [id number] 20 ug/mL (Normal) Range: 10-35 4 Comments: Detection Limit = 1Performed at: [facility] [id number] Director: Reji Gibson MD, Phone: [phone] 38-Idg-281826:1 C DIF TOXIN/AG See Note (Normal) Comments: RESULTS CALLED TO 06/23/112004 VONDA ELAM.REPORT READ BACK BY SAME . * This is an amended result. * A 5 prior result that was reported as final has been changed.06/23/112004 by IESHAPreviously reported as: C. DIFF ANTIGENS POSITIVE 77-Ubf-837292:46 COMP METABOLIC GAP 11 (Normal) Range: 5-15 CO2 28.0 mmol/L (Normal) Range: 21.0-32.0 CL 98 mmol/L (Normal) Range: 98-107 K 4.2 mmol/L (Normal) Range: 3.5-5.1 NA 137 mmol/L (Normal) Range: 136-145 T BILI 0.10 mg/dL (Normal) Range: 0.00-1.00 ALT 23 U/L (Normal) Range: 12-78 ALK P 104 U/L (Normal) Range: 50-136 AST 13 U/L (Abnormal) Range: 15-37 CA 9.5 mg/dL (Normal) Range: 8.5-10.1 A/G 1.2 {RATIO} (Normal) Range: 0.9-2.4 GLOB 3.6 g/dL (Normal) Range: 2.7-4.2 ALB 4.4 g/dL (Normal) Range: 3.4-5.0 T PROT 8.0 g/dL (Normal) Range: 6.4-8.2 BUN/CRE 18.0 {RATIO} (Normal) Range: 10-20 EST GFR - AA 201 mL/min (Normal) EST GFR 166 mL/min (Normal) CREAT,SERUM 0.5 mg/dL (Abnormal) Range: 0.6-1.0 BUN 9 mg/dL (Normal) Range: 7-18 GLU 71 mg/dL (Normal) Range: 70-110 :41 CBCD ABSOLUTE NEUT 5.0 3/uL (Normal) Range: 2.0-7.7 BASO% 0.3 % (Normal) Range: 0-1 EO% 6.3 % (Abnormal) Range: 0-5 MONO% 9.1 % (Normal) Range: 0-10 LY% 14.8 % (Abnormal) Range: 19-41 NEUT% 69.5 % (Normal) Range: 47-70 MPV 9.7 fL (Normal) Range: 6.5-12.0 PLT 228 K/mm3 (Normal) Range: 150-450 RDW 12.2 % (Normal) Range: 11.6-14.6 MCHC 34.0 g/dL (Normal) Range: 32-36 MCH 32.6 pg (Abnormal) Range: 27.0-32.0 MCV 95.9 fL (Normal) Range: 81-99 HCT 38.0 % (Normal) Range: 37-47 HGB 12.9 g/dL (Normal) Range: 12.0-16.0 RBC 3.96 {M/mm3} (Abnormal) Range: 4.2-5.4 WBC 7.2 K/mm3 (Normal) Range: 4.4-11.0 :49 CULTURE, THROAT See Note (Normal) Comments: Normal throat jasper isolated. No beta-hemolyticstreptococcus isolated. :00 C DIF TOXIN/AG See Note (Normal) Comments: C. DIFF ANTIGENS NEGATIVE :00 C DIF TOXIN/AG See Note (Normal) Comments: C. DIFF ANTIGENS NEGATIVE : C DIF TOXIN/AG See Note (Normal) Comments: C. DIFF ANTIGENS NEGATIVE : CUL STOOL/SHIG SHIGA-TOXIN See Note (Normal) Comments: SHIGA TOXIN 1 AND SHIGA TOXIN 2 NOT DETECTED CULTURE, STOOL See Note (Normal) Comments: No Salmonella, Shigella, Yersinia or Campylobacter isolated.No significant amount of Staphylococcus aureusor yeast-like organisms isolated. :00 C DIF TOXIN/AG See Note (Normal) Comments: C. DIFF ANTIGENS POSITIVE : C DIF TOXIN/AG See Note (Normal) Comments: RESULTS CALLED TO OFFICE TO ALEXSANDRA07/17/10 115KRISTIAN DAWSON.REPORT READ BACK BY SAME . Comments: TESTING DONE BY CRISELDA 07/16/10 1845 C. DIFF ANTIGENS POSITIVE : CUL STOOL/SHIG Comments: RESULTS CALLED TO OFFICE TO ALEXSANDRA07/17/10 115KRISTIAN DAWSON.REPORT READ BACK BY SAME . CULTURE, STOOL See Note (Normal) Comments: No Salmonella, Shigella, Yersinia or Campylobacter isolated.No significant amount of Staphylococcus aureusor yeast-like organisms isolated. SHIGA-TOXIN See Note (Normal) Comments: SHIGA TOXIN 1 AND SHIGA TOXIN 2 NOT DETECTED :21 O AND P See Note (Normal) Comments: OVA AND PARASITES EXAM, ROUTINE These results were obtained using wet preparation(s) and trichrome stained smear. This test does not include testing for Crytosporidium parvum, Cyclospora, or Microspo ridia. TESTING PERFORMED AT [facility]. ORIGINAL REPORT ON FILE IN LAB CONTAINS ADDITIONAL TEST SITE INFORMATION. OVA/ PARASITES EXAM NO OVA, CYSTS, OR PARASITES FOUND. :21 WBC,STOOL See Note (Normal) Comments: RESULTS CALLED TO OFFICE TO RejiHBAFZGBT65/04/10 1151 KRISTIAN MILLER.REPORT READ BACK BY SAME . Comments: FECAL WBCs NONE SEEN :20 C DIF TOXIN/AG See Note (Normal) Comments: COPY OF REPORT SENT TO INFECTION CONTROL 06/25/10 143MARIAH.RESULTS CALLED TO CHRISTEN 06/25/10 1432 CRISTA BUSTAMANTE DIFF ANTIGENS POSITIVE :20 CUL STOOL/SHIG CULTURE, STOOL See Note (Normal) Comments: No Salmonella, Shigella, Yersinia or Campylobacter isolated.No significant amount of Staphylococcus aureusor yeast-like organisms isolated. SHIGA-TOXIN See Note (Normal) Comments: SHIGA TOXIN 1 AND SHIGA TOXIN 2 NOT DETECTED :20 O AND P See Note (Normal) Comments: OVA AND PARASITES EXAM, ROUTINE These results were obtained using wet preparation(s) and trichrome stained smear. This test does not include testing for Crytosporidium parvum, Cyclospora, or Microspo ridia. TESTING PERFORMED AT [facility]. ORIGINAL REPORT ON FILE IN LAB CONTAINS ADDITIONAL TEST SITE INFORMATION. OVA/ PARASITES EXAM NO OVA, CYSTS, OR PARASITES FOUND. :20 WBC,STOOL See Note (Normal) Comments: FECAL WBCs NONE SEEN 66-Wsz-279416:14 C DIF TOXIN See Note (Normal) :44 O AND P See Note (Normal) Comments: OVA AND PARASITES EXAM, ROUTINE These results were obtained using wet preparation(s) and trichrome stained smear. This test does not include testing for Crytosporidium parvum, Cyclospora, or Microspo ridia. [facility] ORIGINAL REPORT ON FILE IN LAB CONTAINS ADDITIONAL TEST SITE INFORMATION. OVA/ PARASITES EXAM NO OVA, CYSTS, OR PARASITES FOUND. :44 OCCULT BLD,iFOB See Note (Normal) Comments: OCCULT BLOOD Negative :48 C DIF TOXIN See Note (Normal) Comments: C. DIFF TOXINS A&B NEGATIVE :30 CUL STOOL/SHIG CULTURE, STOOL See Note (Normal) Comments: No Salmonella, Shigella, Yersinia or Campylobacter isolated.No significant amount of Staphylococcus aureusor yeast-like organisms isolated. SHIGA-TOXIN See Note (Normal) Comments: SHIGA-TOXIN 1 & 2 SHIGA TOXIN 1 AND SHIGA TOXIN 2 NOT DETECTED :30 M100.1850 CULST See Note (Normal) Comments: No Salmonella, Shigella, Yersinia or Campylobacter isolated.No significant amount of Staphylococcus aureusor yeast-like organisms isolated. SHIGA See Note (Normal) Comments: SHIGA-TOXIN 1 & 2 SHIGA TOXIN 1 AND SHIGA TOXIN 2 NOT DETECTED :30 O AND P See Note (Normal) Comments: OVA AND PARASITES EXAM, ROUTINE These results were obtained using wet preparation(s) and trichrome stained smear. This test does not include testing for Crytosporidium parvum, Cyclospora, or Microspo ridia. TESTING PERFORMED AT [facility]. ORIGINAL REPORT ON FILE IN LAB CONTAINS ADDITIONAL TEST SITE INFORMATION. OVA/ PARASITES EXAM NO OVA, CYSTS, OR PARASITES FOUND. :00 BMP BUN 9 mg/dL (Normal) Range: 7-18 BUN/CRE 22.5 {RATIO} (Abnormal) Range: 10-20 CA 9.7 mg/dL (Normal) Range: 8.5-10.1 CL 100 mmol/L (Normal) Range: 98-107 CO2 29.0 mmol/L (Normal) Range: 21.0-32.0 CREAT,SERUM 0.4 mg/dL (Abnormal) Range: 0.6-1.0 EST GFR 219 mL/min (Normal) EST GFR - AA 265 mL/min (Normal) GAP 12 (Normal) Range: 5-15 GLU 82 mg/dL (Normal) Range: 70-110 K 4.2 mmol/L (Normal) Range: 3.5-5.1 NA 141 mmol/L (Normal) Range: 136-145 :00 CBCD BASO% 0.5 % (Normal) Range: 0-1 EO% 1.9 % (Normal) Range: 0-5 HCT 40.6 % (Normal) Range: 37-47 HGB 14.1 g/dL (Normal) Range: 12.0-16.0 LY% 28.3 % (Normal) Range: 19-41 MCH 32.5 pg (Abnormal) Range: 27.0-32.0 MCHC 34.9 g/dL (Normal) Range: 32-36 MCV 93.3 fL (Normal) Range: 81-99 MONO% 8.3 % (Normal) Range: 0-10 MPV 8.9 fL (Normal) Range: 6.5-12.0 NEUT% 61.0 % (Normal) Range: 47-70 PLT 202 K/mm3 (Normal) Range: 150-450 RBC 4.35 {M/mm3} (Normal) Range: 4.2-5.4 RDW 11.6 % (Normal) Range: 11.6-14.6 WBC 4.2 K/mm3 (Abnormal) Range: 4.4-11.0 :00 MG 2.2 mg/dL (Normal) Range: 1.5-2.2 :00 PHOS 3.2 mg/dL (Normal) Range: 2.5-4.9 :00 TSH 1.63 {uIU/mL} (Normal) Range: 0.358-3.74 46-Pyp-777365:00 CULTURE, SPUTUM GRAM STAIN See Note (Normal) Comments: GRAM STAIN RARE WHITE BLOOD CELLS RARE GRAM POSITIVE COCCI RARE GRAM NEGATIVE RODS Plan of Care Name Dates Details Instructions Type II diabetes mellitus, well controlled : Continue Current Prescription(s) Indication: Type II diabetes mellitus, well controlled Convulsions : Reviewed 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 Indication: Convulsions Neuromuscular scoliosis : Follow up in 6 months Indication: Neuromuscular scoliosis Convulsions : Continue Current Prescription(s) Indication: Convulsions Diarrhea : Follow up in 4 months Indication: Diarrhea Diarrhea : Eprescribed prescriptions (G8553) Indication: Diarrhea Thrush, oral : Eprescribed prescriptions (G8553) Indication: Thrush, oral Streptococcus pneumoniae : Follow up in 3 months Indication: Streptococcus pneumoniae History of respiratory acidosis : Eprescribed prescriptions (G8553) Indication: History of respiratory acidosis Pre-operative examination : Eprescribed prescriptions (G8553) Indication: Pre-operative examination ALLERGIC RHINITIS DUE TO OTHER ALLERGEN : Allergy proofing Indication: ALLERGIC RHINITIS DUE TO OTHER ALLERGEN ALLERGIC RHINITIS DUE TO OTHER ALLERGEN : Allergy control Indication: ALLERGIC RHINITIS DUE TO OTHER ALLERGEN NEED FOR PROPHYLACTIC VACCINATION AND INOCULATION AGAINST INFLUENZA (V04.81) (Renamed from Need for prophylactic vaccination and inoculation against influenza) : Flu (Influenza) *: flu shot Indication: NEED FOR PROPHYLACTIC VACCINATION AND INOCULATION AGAINST INFLUENZA (V04.81) (Renamed from Need for prophylactic vaccination and inoculation against influenza) Cystitis, acute : Reviewed Diagnostic Tests Indication: Cystitis, acute Planned Observations URINE ANJELICA CULTURE-IDENTIFICATN (15031)Indication: Abnormal urine On: 8-Tmg-343580:25 Request MRSA Culture ([id number])Indication: Thick sputum On: 5-Taj-885402:32 Request Anaerobic & Aerobic Culture (49403)Indication: Thick sputum On: 34-Nkn-389192:46 Request Comments: collected from trachea stoma Anaerobic & Aerobic Culture (72513)Indication: Cellulitis of groin, right On: 5-Daa-213431:44 Request TRILEPTAL-OXCARBAZEPINE [id number] (13553)Indication: Diarrhea On: :24 Request VITAMIN B12 AND FOLATES (76137)Indication: Diarrhea On: :24 Request CALCIFEDIOL (72874)Indication: Diarrhea On: : Request CALCIFEDIOL (48637)Indication: Diarrhea On: : Request TSH (THYROID STIMULATING HORMONE) (73757)Indication: Diarrhea On: : Request METABOLIC PANEL, COMPREHENSIVE (73441)Indication: Diarrhea On: : Request CBC, PLATELETS & AUT DIFF (35251)Indication: Diarrhea On: : Request OVA & PARASITE DIR SMEAR (61196)Indication: Diarrhea On: :46 Request ANJELICA CULTURE-STOOL (41903)Indication: Diarrhea On: :46 Request OCCULT BLOOD FECES SCREEN (34384)Indication: Diarrhea On: :46 Request LEUKOCYTE COUNT, FECAL (48657)Indication: Diarrhea On: :46 Request C-DIFFICILE, STOOL (69629)Indication: Diarrhea On: 26-Sjd-209698:46 Request OVA & PARASITE DIR SMEAR (68636)Indication: C. difficile diarrhea On: 1-Mkh-738243:50 Request OCCULT BLOOD FECES SCREEN (05243)Indication: C. difficile diarrhea On: :50 Request ANJELICA CULTURE-STOOL (68734)Indication: C. difficile diarrhea On: 4-Ecm-220155:50 Request LEUKOCYTE COUNT, FECAL (56370)Indication: C. difficile diarrhea On: :50 Request C-DIFFICILE, STOOL (29262)Indication: C. difficile diarrhea On: :49 Request Clostridium difficile Culture (44891)Indication: Diarrhea On: 4-Sga-051072:52 Request URINALYSIS, W/ MICRO (15450)Indication: Dysuria On: :56 Request URINE ANJELICA CULTURE-SISSY COL COUNT (29173)Indication: Dysuria On: :54 Request OCCULT BLOOD FECES SCREEN (80951)Indication: Diarrhea On: :01 Request LEUKOCYTE COUNT, FECAL (83693)Indication: Diarrhea On: :05 Request ANJELICA CULTURE-STOOL (24048)Indication: Diarrhea On: :05 Request Clostridium difficile Toxin A+B, EIA (00081)Indication: Diarrhea On: :05 Request TRILEPTAL-OXCARBAZEPINE [id number] (13920)Indication: Convulsions On: 59-Ush-848050:55 Request PREALBUMIN (42335)Indication: Nutritional assessment On: :45 Request CALCIFIDIOL (56947) VIT D 25Indication: Vitamin D deficiency On: :44 Request TSH (27308)Indication: Hypertension On: :44 Request METABOLIC PANEL, COMPREHENSIVE (21608)Indication: Hypertension On: :44 Request LIPID PANEL (12775)Indication: Hypertension On: :44 Request CBC with auto diff (88181)Indication: Hypertension On: :44 Request Metabolic Panel, Basic (19542)Indication: Abnormal urine On: :03 Request VITAMIN B12 AND FOLATES (08602)Indication: Abnormal urine On: :03 Request CALCIFEDIOL (06243)Indication: Abnormal urine On: :03 Request Comments: vit d3 URINE ANJELICA CULTURE-SISSY COL COUNT (52371)Indication: Abnormal urine On: 5-Nhc-135222:52 Request TRILEPTAL-OXCARBAZEPINE [id number] (04807)Indication: Cerebral palsy On: :46 Request HCG Qualitative, Serum (57615)Indication: Amenorrhea On: :45 Request PROLACTIN (01504)Indication: Amenorrhea On: :44 Request PREALBUMIN (49791)Indication: Cerebral palsy On: :43 Request URINALYSIS (04595)Indication: Fatigue On: :43 Request T3, FREE (TRIDOTHYRONINE) (63330)Indication: Fatigue On: :43 Request T4, FREE (THYROXINE) (19832)Indication: Fatigue On: :43 Request Folate (22236)Indication: Fatigue On: :42 Request CALCIFIDIOL (89816) VIT D 25Indication: Fatigue On: :42 Request VITAMIN B-12 (CYANOCOBALAMIN) (47197)Indication: Fatigue On: :42 Request TSH (22908)Indication: Fatigue On: :42 Request SED RATE ERYTHROCYTE (98233)Indication: Fatigue On: :42 Request METABOLIC PANEL, COMPREHENSIVE (78037)Indication: Fatigue On: :42 Request C-REACTIVE PROTEIN (99884)Indication: Fatigue On: :42 Request CBC (AUTO) (04505)Indication: Fatigue On: :42 Request CULTURE,BODY FLUID (75570)Indication: Irregular Menstrual Cycle (Renamed from Irregular bleeding) On: 35-Upn-931333:07 Request Comments: urine Rapid Strep Test, Office (16792)Indication: Pharyngitis, acute On: 55-Ypj-926405:51 Request Urinalysis, Office (76580)Indication: Fatigue On: 24-Qap-407820:49 Request HgA1C , Office (28088)Indication: Hyperglycemia On: 01-Sea-525144:41 Request CALCIFIDIOL (37677) VIT D 25Indication: Vitamin D deficiency On: 11-Lay-493665:32 Request TRILEPTAL-OXCARBAZEPINE 139336 (47071)Indication: Convulsions On: :31 Request Metabolic Panel, Comprehensive (95360)Indication: Acute renal failure On: :31 Request CBC with manual diff (03512)Indication: Hypertension On: :31 Request CBC with manual diff (21641)Indication: Thrombocytopenia, unspecified On: :35 Request Comments: in citrate tube FIBRINOGEN (09857)Indication: Thrombocytopenia, unspecified On: :35 Request PTT (Activated Partial Thromboplastin Time) (14634)Indication: Thrombocytopenia, unspecified On: Request PT (Prothrobim Time) (56281)Indication: Thrombocytopenia, unspecified On: Request HEPATITIS C ANTIBODY (69193)Indication: Thrombocytopenia, unspecified On: Request HEPATITIS B CORE ANTBD-IGG/IGM (22079)Indication: Thrombocytopenia, unspecified On: Request HEPATITIS B SURFACE ANTIGEN (57164)Indication: Thrombocytopenia, unspecified On: Request HEPATITIS B SURFACE ANTIBODY (73193)Indication: Thrombocytopenia, unspecified On: Request Methylmalonic acid, serum 42815Lybaoxjavv: Thrombocytopenia, unspecified On: Request Vitamin B-12 (cyanocobalamin) (76331)Indication: Thrombocytopenia, unspecified On: Request Sed Rate Erythrocyte (19067)Indication: Thrombocytopenia, unspecified On: Request Metabolic Panel, Comprehensive (19964)Indication: Thrombocytopenia, unspecified On: Request JENNY (ANTINUCLEAR ANTIBODY) (79733)Indication: Thrombocytopenia, unspecified On: Request CBC with manual diff (91273)Indication: Convulsions On: 60-Jdc-941711:31 Request Clostridium difficile Toxin A+B, EIA (57172)Indication: Diarrhea On: :31 Request OVA & PARASITE DIR SMEAR (28257)Indication: Diarrhea On: :44 Request OCCULT BLOOD FECES SCREEN (49733)Indication: Diarrhea On: :44 Request LEUKOCYTE COUNT, FECAL (79409)Indication: Diarrhea On: :44 Request ANJELICA CULTURE-STOOL (75646)Indication: Diarrhea On: :44 Request Clostridium difficile Toxin A+B, EIA (59035)Indication: Diarrhea On: 34-Jow-973014:22 Request C DIFF AMPLIFIED PROBE (93380)Indication: Diarrhea On: 98-Ljr-79161:51 Request Metabolic Panel, Comprehensive (88563)Indication: Acute renal failure On: :08 Request Comments: recheck prior to August. CALCIFIDIOL (49709) VIT D 25Indication: Vitamin D deficiency On: :08 Request Comments: recheck prior to August. TRILEPTAL-OXCARBAZEPINE 117717 (70101)Indication: Convulsions On: 4-Kxm-274885:08 Request Culture, Stool (10787)Indication: Diarrhea On: 77-Ufv-511736:01 Request C DIFF AMPLIFIED PROBE (28356)Indication: Diarrhea On: :01 Request C DIFF AMPLIFIED PROBE (75171)Indication: Diarrhea On: 99-Qhz-251360:32 Request C DIFF AMPLIFIED PROBE (04100)Indication: Diarrhea On: 60-Lzr-577710:51 Request URINE ANJELICA CULTURE-IDENTIFICATN (52693)Indication: Backache On: 9-Fii-194172:58 Request URINALYSIS (01436)Indication: Backache On: 8-Esa-945973:58 Request Metabolic Panel, Comprehensive (23854)Indication: Profound mental retardation (Renamed from IQ under 20) On: 5-Ibj-152782:25 Request Comments: Dr Pino neurologist at [facility] CBC (Auto) (77394)Indication: Profound mental retardation (Renamed from IQ under 20) On: 8-Kmg-118923:25 Request TRILEPTAL-OXCARBAZEPINE [id number] (56448)Indication: Cerebral palsy On: 6-Kjq-830811:24 Request COLUMN CHROMATOGRAPHY, SISSY, SINGLE (82159)Indication: Convulsions On: 70-Tms-929368:54 Request Comments: trileptal [id number] Clostridium difficile Toxin A+B, EIA (45024)Indication: Diarrhea On: 83-Gjw-041845:26 Request CBC (Auto) (84926)Indication: Convulsions On: 30-Ynl-573288:25 Request Metabolic Panel, Comprehensive (78985)Indication: Convulsions On: 43-Qaw-104722:24 Request ANJELICA CULTURE-OTHER (78889)Indication: Pharyngitis, acute On: 5-Rge-153231:44 Request C.Difficile, Stool (95311)Indication: Diarrhea On: 13-Lem-921918:48 Request ANJELICA CULTURE-STOOL (41189)Indication: Diarrhea On: :55 Request C.Difficile, Stool (90341)Indication: Diarrhea On: :54 Request LEUKOCYTE COUNT, FECAL (98400)Indication: Diarrhea On: : Request OVA & PARASITE DIR SMEAR (07312)Indication: Diarrhea On: :27 Request C.Difficile, Stool (16842)Indication: Diarrhea On: :27 Request ANJELICA CULTURE-STOOL (96697)Indication: Diarrhea On: :27 Request TSH (30422)Indication: Unspecified bacterial pneumonia On: 0-Bsr-895972:48 Request CBC, Platelets & Auto Diff (04833)Indication: Unspecified bacterial pneumonia On: :48 Request Magnesium (25989)Indication: Unspecified bacterial pneumonia On: :48 Request Phosphorus (24403)Indication: Unspecified bacterial pneumonia On: :48 Request Metabolic Panel, Basic (25773)Indication: Unspecified bacterial pneumonia On: 5-Szw-508507:48 Request Planned Encounters Medical; 4 Month FU - On: 10-Oct-2018 13:15 [facility] Sandra Bermudez DO, DO, Kathleen Planned Procedures Flu Vaccine (Quadrivalent) On: 06-Jun-2018 Intent 44979Di: Sandra Bermudez DO Comments: Lot #[id number]-L dltd, IMDose prefilled syringegiven by:MARICARMEN Santana reviewed and ABN signed Sandra Bermudez DO Flu Vaccine (Quadrivalent) On: 02-Aug-2017 Intent 77616Rf: Sandra Bermudez DO Comments: Lot:[id number]:12/29Amt:0.5mlRoute:IMSite: Rt DltdGiven By: ALFREDITO James signed Sandra Bermudez DO Flu Vaccine (Quadrivalent) On: 14-May-2016 Intent 80704Ih: Roe Baxter MD Comments: Lot #[id number]-L dltd, IMDose prefilled syringegiven by:ALFREDITO Goldberg and ABN signed ADMINISTRATION OF INFLUENZA On: 02-Aug-2015 Intent VIRUS VACCINE (G0008)By: Linda Houston MD Flu Vaccine (Quadrivalent) On: 02-Aug-2015 Intent 87197Gi: Linda Houston MD Comments: Lot #:[id number] date:Amount given:0.5mlRoute: IMSite given:L DltdGiven by: Jessica BASSETT and ABN signed Quad Flu ELECTROCARDIOGRAM, COMPLETE On: 21-Mar-2015 Intent (ECG) (86976)By: Linda Houston MD CT - Brain/Head (IV Contrast On: 29-Nov-2014 Intent Needed)By: Linda Houston MD ADMINISTRATION OF INFLUENZA On: 06-Aug-2014 Intent VIRUS VACCINE (G0008)By: TIMBO Villegas Flu Vaccine (Quadrivalent) On: 06-Aug-2014 Intent 50103Lj: TIMBO Villegas Comments: Lot #:[id number] date:mount given:0.5mlRoute: IM Site given:Given by: to be given per patient home health nurse CATHETERIZE FOR URINE SPEC On: 09-Mar-2014 Intent (P9612)By: Linda Houston MD Comments: pls use pediatric cath- and fax results to [phone] SPECIMEN HNDLNG/TRNSPRT, OFFC > On: 09-Mar-2014 Intent LAB (68047)By: Linda Houston MD IMMUNIZ ADMNIN, 1 VAC, On: 28-Jul-2013 Intent SNGL/COMBO (54041)By: Archie BOLDEN, Comments: Lot #[id number] to nurse for admin Jessica Stack FLU VAC, SPLIT, >3 YEARS, On: 28-Jul-2013 Intent INTRAMUSC (72066)By: Jessica Almanza LPN SPECIMEN HNDLNG/TRNSPRT, OFFC > On: 18-May-2013 Intent LAB (94996)By: Linda Houston MD Eprescribed prescriptions On: 18-May-2013 Intent (G8553)By: Jessica Almanza LPN FLU VAC, SPLIT, >3 YEARS, On: 23-Jun-2011 Intent INTRAMUSC (05264)By: Archie BOLDEN, Comments: Lot #[id number] arm, IMDose prefilledgiven by:Jessica Stack IMMUNIZ ADMNIN, 1 VAC, On: 23-Jun-2011 Intent SNGL/COMBO (63283)By: Jessica Almanza LPN Instructions Name Dates Details Type II diabetes mellitus, well controlled : Patient Instructions Indication: Type II diabetes mellitus, well controlled NEED FOR PROPHYLACTIC VACCINATION AND INOCULATION AGAINST INFLUENZA (V04.81) (Renamed from Need for prophylactic vaccination and inoculation against influenza) : How to access health information online - Detail Indication: NEED FOR PROPHYLACTIC VACCINATION AND INOCULATION AGAINST INFLUENZA (V04.81) (Renamed from Need for prophylactic vaccination and inoculation against influenza) NEED FOR PROPHYLACTIC VACCINATION AND INOCULATION AGAINST INFLUENZA (V04.81) (Renamed from Need for prophylactic vaccination and inoculation against influenza) : Patient Instructions Indication: NEED FOR PROPHYLACTIC VACCINATION AND INOCULATION AGAINST INFLUENZA (V04.81) (Renamed from Need for prophylactic vaccination and inoculation against influenza) Body mass index (BMI) 22.0-22.9, adult : How to access health information online Indication: Body mass index (BMI) 22.0-22.9, adult Body mass index (BMI) 22.0-22.9, adult : How to access health information online - Detail Indication: Body mass index (BMI) 22.0-22.9, adult Body mass index (BMI) 22.0-22.9, adult : Patient Instructions Indication: Body mass index (BMI) 22.0-22.9, adult Current nonsmoker (Renamed from Current non-smoker) : How to access health information online Indication: Current nonsmoker (Renamed from Current non-smoker) Current nonsmoker (Renamed from Current non-smoker) : How to access health information online - Detail Indication: Current nonsmoker (Renamed from Current non-smoker) Current nonsmoker (Renamed from Current non-smoker) : Patient Instructions Indication: Current nonsmoker (Renamed from Current non-smoker) Current nonsmoker (Renamed from Current non-smoker) : How to access health information online Indication: Current nonsmoker (Renamed from Current non-smoker) Current nonsmoker (Renamed from Current non-smoker) : How to access health information online - Detail Indication: Current nonsmoker (Renamed from Current non-smoker) Current nonsmoker (Renamed from Current non-smoker) : Patient Instructions Indication: Current nonsmoker (Renamed from Current non-smoker) Diarrhea : How to access health information online Indication: Diarrhea Diarrhea : How to access health information online - Detail Indication: Diarrhea Diarrhea : Patient Instructions Indication: Diarrhea Thrush, oral : How to access health information online Indication: Thrush, oral Thrush, oral : How to access health information online - Detail Indication: Thrush, oral History of respiratory acidosis : How to access health information online Indication: History of respiratory acidosis History of respiratory acidosis : How to access health information online - Detail Indication: History of respiratory acidosis History of respiratory acidosis : Patient Instructions Indication: History of respiratory acidosis Diarrhea : How to access health information online Indication: Diarrhea Diarrhea : How to access health information online - Detail Indication: Diarrhea Diarrhea : Patient Instructions Indication: Diarrhea Pre-operative examination : How to access health information online Indication: Pre-operative examination Pre-operative examination : How to access health information online - Detail Indication: Pre-operative examination Pre-operative examination : Patient Instructions Indication: Pre-operative examination Cerebral palsy : Patient Instructions Indication: Cerebral palsy Encounters Phone Encounter On: 28-Jul-2018 15:30 Encounter Diagnosis: Amenorrhea End: 28-Jul-2018 15:38 [facility] Phone Encounter On: 15-Jul-2018 15:39 Encounter Diagnosis: ALLERGIC RHINITIS DUE TO OTHER ALLERGEN End: 15-Jul-2018 15:42 [facility] Phone Encounter On: 27-Jun-2018 15:20 Encounter Diagnosis: ALLERGIC RHINITIS DUE TO OTHER ALLERGEN End: 27-Jun-2018 15:22 [facility] Office Visit On: 17-Jun-2018 11:30 Encounter Diagnosis: Type II diabetes mellitus, well controlled, Paraplegia End: 17-Jun-2018 12:39 [facility] Phone Encounter On: 13-Jun-2018 10:51 Encounter Diagnosis: Diabetes End: 13-Jun-2018 10:56 [facility] Office Visit On: 10-Jun-2018 16:44 Encounter Diagnosis: Diabetes End: 10-Jun-2018 16:47 [facility] Phone Encounter On: 10-Jun-2018 16:37 Encounter Diagnosis: Diabetes End: 10-Jun-2018 16:38 [facility] Phone Encounter On: 08-Jun-2018 17:17 Encounter Diagnosis: Diabetes End: 08-Jun-2018 17:19 [facility] Office Visit On: 06-Jun-2018 12:50 Encounter Reason: Follow up for chronic medical issues - The patient feels well with minor complaints, has good energy level and is sleeping well. Patient has been compliant with instructions. Current medication use: no End: 06-Jun-2018 14:19 side effects and compliant with dosing regimen. Patient sleeps 8 hours per night. Nutrition: balanced diet and supplemental vitamins. The medical issues the patient is following up for include All identified problems below. blood pressure range :. Encounter Diagnosis: Body mass index (BMI) 22.0-22.9, adult, Current nonsmoker (Renamed from Current non-smoker), Need for prophylactic vaccination and inoculation against influenza (V04.81), Therapeutic drug monitoring, Hyperglycemia, Cerebral palsy , Convulsions, Paraplegia, Neuromuscular scoliosis, Vitamin D deficiency, Encounter for screening for lipid disorder, Irregular Menstrual Cycle (Renamed from Irregular bleeding) [facility] Phone Encounter On: 17-Mar-2018 8:37 Encounter Diagnosis: Otitis media, acute End: 17-Mar-2018 8:42 [facility] Office Visit On: 31-Jan-2018 13:04 Encounter Reason: Follow up ER - Reason for hospitalization note: (cellulitis on her back).Encounter Diagnosis: Current nonsmoker (Renamed from Current non- smoker), Body mass index (BMI) 22.0-22.9, adult, Paraplegia, Cellulitis of back End: 31-Jan-2018 17:06 [facility] Office Visit On: 20-Sep-2017 10:25 Encounter Diagnosis: Abnormal urine End: 20-Sep-2017 10:26 [facility] Phone Encounter On: 12-Aug-2017 14:11 Encounter Diagnosis: Otitis externa End: 12-Aug-2017 14:17 [facility] Office Visit On: 02-Aug-2017 13:53 Encounter Reason: Follow up for chronic medical issues - The patient feels well with minor complaints, has good energy level and is sleeping well. Patient has been compliant with instructions. Current medication use: no End: 02-Aug-2017 16:00 side effects and compliant with dosing regimen. Patient sleeps 8 hours per night. Nutrition: balanced diet and supplemental vitamins. The medical issues the patient is following up for include All identified problems below. blood pressure range :. Encounter Diagnosis: Body mass index (BMI) 22.0-22.9, adult, Current nonsmoker (Renamed from Current non-smoker), Need for prophylactic vaccination and inoculation against influenza (V04.81), Hyperglycemia, Cerebral palsy, Vitamin D deficiency, MH (mental handicap), Convulsions, Tracheostomy status, Paraplegia, Therapeutic drug monitoring [facility] Phone Encounter On: 31-May-2017 16:52 Encounter Diagnosis: Unspecified Diagnosis End: 31-May-2017 16:54 [facility] Phone Encounter On: 20-Apr-2017 16:03 Encounter Diagnosis: Sore throat End: 20-Apr-2017 16:04 [facility] Office Visit On: 18-Feb-2017 14:30 Encounter Diagnosis: Thick sputum End: 18-Feb-2017 14:32 [facility] Office Visit On: 27-Jan-2017 13:45 Encounter Reason: Follow up for chronic medical issues - The patient feels well with minor complaints and has good energy level. Patient has been compliant with instructions. The medical issues the patient is following u End: 27-Jan-2017 16:01 p for include All identified problems below and other.Encounter Diagnosis: Body mass index (BMI) 22.0-22.9, adult, Current nonsmoker (Renamed from Current non- smoker), Neuromuscular scoliosis, Convulsions, MH (mental handicap), Vitamin D deficiency, Cerebral palsy, Hyperglycemia, Therapeutic drug monitoring, Encounter for screening for lipid disorder [facility] Phone Encounter On: 04-Jan-2017 13:42 Encounter Diagnosis: Unspecified Diagnosis End: 04-Jan-2017 13:46 [facility] Phone Encounter On: 03-Dec-2016 11:43 Encounter Diagnosis: Thick sputum End: 03-Dec-2016 11:47 [facility] Phone Encounter On: 29-May-2016 10:45 Encounter Diagnosis: Cellulitis of groin, right End: 29-May-2016 10:46 [facility] Nurse Visit (Non-[place]) On: 21-May-2016 15:09 Encounter Diagnosis: Cellulitis of groin, right End: 21-May-2016 15:19 [facility] Phone Encounter On: 15-May-2016 14:28 Encounter Diagnosis: Unspecified Diagnosis End: 15-May-2016 14:32 [facility] Office Visit On: 14-May-2016 11:19 Encounter Reason: Skin Problems - The skin problems have been occurring for 1 month.Encounter Diagnosis: Diarrhea, Fungal infection of the groin, Cellulitis of groin, right, Cerebral palsy, MH (mental handicap), Vitamin D deficiency, Convulsions, End: 14-May-2016 16:26 Need for prophylactic vaccination and inoculation against influenza (V04.81) [facility] Office Visit On: 03-Apr-2016 10:53 Encounter Reason: Pre-Op Visit - The procedure scheduled is a she is getting dental work just maybe a cleaning on 04/07/16. The surgeon for the procedure will be Dr. Mcelroy.Encounter Diagnosis: Pre-operative examination, Paraplegia, End: 03-Apr-2016 13:22 Tracheostomy status, Neuromuscular scoliosis, MH (mental handicap), Cerebral palsy, Thrush, oral [facility] Transition of Care On: 31-Mar-2016 15:44 Encounter Diagnosis: Diarrhea End: 31-Mar-2016 15:46 [facility] Phone Encounter On: 24-Feb-2016 11:13 Encounter Diagnosis: Unspecified Diagnosis End: 24-Feb-2016 11:40 [facility] Phone Encounter On: 19-Feb-2016 10:46 Encounter Diagnosis: C. difficile diarrhea End: 19-Feb-2016 10:53 [facility] Office Visit On: 12-Feb-2016 10:51 Encounter Reason: Follow up hospital - Reason for ER visit: note: (trouble breathing and a temp 101.4). The patient feels well with no complaints and is sleeping well. Patient has been compliant with instructions. Shadia End: 12-Feb-2016 13:19 t medication use: no side effects and compliant with dosing regimen. Patient sleeps 8 hours per night. Nutrition: balanced diet (feeding tube). Hospital procedures performed were other (xray). The hospital results of the chest X-ray were Encounter Diagnosis: Streptococcus pneumoniae, C. difficile diarrhea, Lactic acid acidosis, Sepsis, History of cerebral palsy, History of respiratory acidosis, Neuromuscular scoliosis, ALLERGIC RHINITIS DUE TO OTHER ALLERGEN, Tracheostomy status, Hyperglycemia, Fatigue, Paraplegia, Vitamin D deficiency, Convulsions, MH (mental handicap), Irregular Menstrual Cycle (Renamed from Irregular bleeding) [facility] Office Visit On: 20-Jan-2016 11:03 Encounter Reason: Follow up for chronic medical issues - The patient feels well with minor complaints and has decreased energy level. Patient has been compliant with instructions. Current medication use: no side effects End: 22-Jan-2016 12:46 and compliant with dosing regimen. Patient sleeps 8 hours per night. Impact of disease: emotional impact-moderate. Nutrition: balanced diet and supplemental vitamins. The medical issues the patient is f ollowing up for include other (CP, parapelgia, trach, convulsions, vitamin d def., chronic diarrhea, mental handicap, irregular menstrual cycle ).Encounter Diagnosis: Diarrhea, Current nonsmoker (Renamed from Current non-smoker), Amenorrhea, Cerebral palsy, Neuromuscular scoliosis, ALLERGIC RHINITIS DUE TO OTHER ALLERGEN, Tracheostomy status, Nutritional assessment, Hyperglycemia, Fatigue, Paraplegia, Vitamin D deficiency, Convulsions, MH (mental handicap), Unspecified visual disturbance , Irregular Menstrual Cycle (Renamed from Irregular bleeding) [facility] Phone Encounter On: 04-Dec-2015 16:07 Encounter Diagnosis: Unspecified Diagnosis End: 04-Dec-2015 16:09 [facility] Annotation/Addendum On: 11-Nov-2015 15:01 Encounter Diagnosis: UTI (urinary tract infection) End: 11-Nov-2015 16:41 [facility] Lab Order On: 11-Nov-2015 8:53 Encounter Diagnosis: Dysuria End: 11-Nov-2015 8:57 [facility] Lab Order On: 10-Sep-2015 15:01 Encounter Diagnosis: Diarrhea End: 10-Sep-2015 15:02 [facility] Lab Order On: 29-Aug-2015 9:03 Encounter Diagnosis: Diarrhea End: 29-Aug-2015 9:06 [facility] Office Visit On: 02-Aug-2015 13:10 Encounter Reason: Follow up for chronic medical issues - The patient feels well with minor complaints, has good energy level and is sleeping well. Patient has been compliant with instructions. Current medication use: no End: 02-Aug-2015 15:34 side effects, compliant with dosing regimen and considered effective by patient. Patient sleeps 8 hours per night. Impact of disease: emotional impact-moderate. Nutrition: balanced diet and supplemental vitamins. The medical issues the patient is following up for include other (MRCP, tracheotomy, convulsions, paraplegic).Encounter Diagnosis: Tracheostomy status, Need for prophylactic vaccination and inoculation against influenza (V04.81), Hypertension, Nutritional assessment, Paraplegia (344.1), Hyperglycemia, ALLERGIC RHINITIS DUE TO OTHER ALLERGEN, FATIGUE (780.79), Amenorrhea, Cerebral palsy, Neuromuscular scoliosis, MH (mental handicap), Unspecified visual disturbance, Vitamin D deficiency (268.9), Irregular Menstrual Cycle (Renamed from Irregular bleeding), Convulsions [facility] Lab Order On: 08-Jul-2015 10:53 Encounter Diagnosis: Convulsions End: 08-Jul-2015 10:56 [facility] Office Visit On: 21-Mar-2015 12:36 Encounter Reason: Pre-Op Visit - The procedure scheduled is a dental cleaning on to be determined. The surgeon for the procedure will be Dr Beck [facility]. The chief complaint is teeth cleanin End: 21-Mar-2015 14:17 g . Recent symptoms include fever, chills, fatigue, chest pain, cough, dyspnea, dysuria, urinary frequency, nausea, vomiting, diarrhea, abdominal pain, easy bruising, lower extremity swelling and poor e xercise tolerance. Pertinent medical history includes renal disease (hadkidney failure before, but not issue now) and gastrointestinal disease (h/o C Diff), while pertinent medical history does not inc lude prior anesthesia, previous anesthesia reaction, diabetes, cardiovascular disease, pulmonary disease, sleep apnea, thromboembolic problems, clotting disorder, bleeding disorder, transfusion reaction , impaired immunity, corticosteroid use in the last six months or frequent aspirin use. Pertinent family history does not include myocardial infarction, stroke, aneurysm, sudden , clotting disorder or bleeding disorder. Pertinent social history includes nonsteroidal anti-inflammatory drug use (motrin prn), while pertinent social history does not include aspirin use, tobacco use, alcohol use, illi cit drug use, transfusion refusal, wearing dentures or partial plates or concerns regarding care after surgery. After surgery the patient plans to recover at home with family.Encounter Diagnosis: Pre-Operative Examination, Unspecified (V72.84), Pain in a tooth or teeth, Tracheostomy status (V44.0), Hypertension, Nutritional assessment, Paraplegia (344.1), Vitamin D deficiency (268.9), SEIZURE, NOS (780.3), Irregular Menstrual Cycle (Renamed from Irregular bleeding) [facility] Office Visit On: 27-Dec-2014 14:48 Encounter Diagnosis: Exposure to influenza End: 27-Dec-2014 14:51 [facility] Phone Encounter On: 20-Dec-2014 14:54 Encounter Diagnosis: Abnormal urine End: 20-Dec-2014 15:04 [facility] Phone Encounter On: 19-Dec-2014 13:49 Encounter Diagnosis: Abnormal urine End: 19-Dec-2014 13:53 [facility] Office Visit On: 29-Nov-2014 11:14 Encounter Diagnosis: FATIGUE (780.79), Swelling, CEREBRAL PALSY, NOS (343.9), Amenorrhea, Tracheostomy status (V44.0) End: 29-Nov-2014 11:50 [facility] Historical Summary On: 08-Nov-2014 11:56 Encounter Diagnosis: Unspecified Diagnosis End: 08-Nov-2014 12:01 [facility] Phone Encounter On: 12-Sep-2014 8:52 Encounter Diagnosis: Unspecified Diagnosis End: 12-Sep-2014 8:57 [facility] Phone Encounter On: 06-Aug-2014 12:21 [facility] End: 06-Aug-2014 12:23 Office Visit On: 06-Aug-2014 12:18 Encounter Diagnosis: Need for prophylactic vaccination and inoculation against influenza (V04.81) End: 07-Aug-2014 16:30 [facility] Phone Encounter On: 23-Apr-2014 10:56 Encounter Diagnosis: ALLERGIC RHINITIS DUE TO OTHER ALLERGEN End: 23-Apr-2014 11:05 [facility] Office Visit On: 09-Mar-2014 9:41 Encounter Diagnosis: Irregular Menstrual Cycle (Renamed from Irregular bleeding), FATIGUE (780.79), Hyperglycemia, Hypertension, Acute renal failure (584.9), THROMBOCYTOPENIA, UNSPECIFIED (287.5), ALLERGIC RHINITIS DUE TO OTHER ALLERGEN, End: 11-Mar-2014 16:53 ACUTE PHARYNGITIS (462.), Nutritional assessment [facility] Lab Order On: 26-Feb-2014 17:30 Encounter Diagnosis: Acute renal failure (584.9), Hypertension, SEIZURE, NOS (780.3), Vitamin D deficiency (268.9) End: 26-Feb-2014 17:32 [facility] Refill Request On: 17-Nov-2013 6:30 Encounter Diagnosis: Hypertension End: 17-Nov-2013 6:33 [facility] Phone Encounter On: 11-Sep-2013 7:34 Encounter Diagnosis: THROMBOCYTOPENIA, UNSPECIFIED (287.5) End: 11-Sep-2013 7:37 [facility] Lab Order On: 08-Sep-2013 16:30 Encounter Diagnosis: SEIZURE, NOS (780.3) End: 08-Sep-2013 16:31 [facility] Refill Request On: 31-Jul-2013 12:40 Encounter Diagnosis: Eye drainage (379.93) End: 31-Jul-2013 12:41 [facility] Office Visit On: 28-Jul-2013 11:17 Encounter Reason: Injections - The medication the patient is here to receive is other (flu shot -- not injected -- given to mother/hh nurse for injection).Encounter Diagnosis: End: 31-Jul-2013 13:30 Need for prophylactic vaccination and inoculation against influenza (V04.81) [facility] Lab Order On: 04-Jul-2013 7:30 Encounter Diagnosis: Diarrhea (787.91) End: 04-Jul-2013 7:31 [facility] Lab Order On: 27-Jun-2013 8:42 Encounter Diagnosis: Diarrhea (787.91) End: 27-Jun-2013 8:44 [facility] Phone Encounter On: 26-Jun-2013 11:21 Encounter Diagnosis: Diarrhea (787.91) End: 26-Jun-2013 11:28 [facility] Phone Encounter On: 26-Jun-2013 9:49 Encounter Diagnosis: Diarrhea (787.91) End: 26-Jun-2013 9:52 [facility] Lab Order On: 22-May-2013 18:06 Encounter Diagnosis: Vitamin D deficiency (268.9), Acute renal failure (584.9) End: 22-May-2013 18:10 [facility] Office Visit On: 18-May-2013 9:55 Encounter Reason: Follow up for chronic medical issues - The patient feels well with minor complaints and has decreased energy level. Patient has been compliant with instructions. Current medication use: no side effects End: 18-May-2013 20:49 and compliant with dosing regimen. Patient sleeps 7 hours per night. Impact of disease: emotional impact-mild. Nutrition: balanced diet and supplemental vitamins. The medical issues the patient is follo wing up for include other (profound mental retardation, CP, trach, seziure disorder, scoliosis ).Encounter Diagnosis: Tracheostomy status (V44.0), CEREBRAL PALSY, NOS (343.9), SCOLIOSIS, NOS (737.43), Unspecified visual disturbance (368.9), Infantile cerebral palsy, unspecified (343.9), Backache, unspecified (724.5), Ear pain (388.70), UNSPECIFIED INTELLECTUAL DISABILITIES (319.), Paraplegia (344.1), SEIZURE, NOS (780.3), Thrush (112.0), ACUTE PHARYNGITIS (462.), Eye drainage (379.93), Acute renal failure (584.9), FATIGUE (780.79) [facility] Annotation/Addendum On: 20-Feb-2013 13:00 Encounter Diagnosis: Ear pain (388.70) End: 20-Feb-2013 13:04 [facility] Phone Encounter On: 22-Aug-2012 15:57 Encounter Diagnosis: Diarrhea (787.91) End: 22-Aug-2012 16:03 [facility] Phone Encounter On: 26-Jul-2012 16:31 Encounter Diagnosis: Diarrhea (787.91) End: 26-Jul-2012 16:40 [facility] Phone Encounter On: 25-May-2012 15:48 Encounter Diagnosis: Diarrhea (787.91) End: 25-May-2012 15:52 [facility] Annotation/Addendum On: 18-May-2012 13:55 Encounter Diagnosis: Backache, unspecified (724.5) End: 18-May-2012 14:00 [facility] Phone Encounter On: 01-Feb-2012 14:05 Encounter Diagnosis: UNSPECIFIED INTELLECTUAL DISABILITIES (319.) End: 01-Feb-2012 14:09 [facility] Office Visit On: 14-Jan-2012 11:51 Encounter Reason: Follow up for chronic medical issues - The patient feels well with minor complaints and has decreased energy level. Patient has been compliant with instructions. Current medication use: no side effects End: 14-Jan-2012 12:37 and compliant with dosing regimen. Patient sleeps 7 hours per night. Impact of disease: emotional impact-mild. Nutrition: balanced diet and supplemental vitamins. The medical issues the patient is follo wing up for include other (profound mental retardation, CP, trach, seziure disorder, scoliosis ).Encounter Diagnosis: Profound mental retardation (318.2), CEREBRAL PALSY, NOS (343.9), Paraplegia (344.1), SEIZURE, NOS (780.3), Constipation(564.00), ENTERITIS, CLOSTRIDIUM DIFFICILE (008.45) [facility] Annotation/Addendum On: 01-Sep-2011 10:32 Encounter Diagnosis: Unspecified Diagnosis End: 01-Sep-2011 10:34 [facility] Office Visit On: 23-Jun-2011 10:52 Encounter Reason: Follow up for chronic medical issues - The patient is sleeping well ([place] d/c). Patient has been compliant with instructions. Current medication use: no side effects and compliant with dosing regimen End: 25-Jun-2011 13:03 . Patient sleeps 8 hours per night. The medical issues the patient is following up for include other (cerebral palsyseizureMMRD parapalegia).Encounter Diagnosis: Need for prophylactic vaccination and inoculation against influenza (V04.81), SEIZURE, NOS (780.3), CEREBRAL PALSY, NOS (343.9), Profound mental retardation (318.2), Paraplegia (344.1), Diarrhea (787.91), Rash (782.1) [facility] Phone Encounter On: 16-Jan-2011 11:43 Encounter Diagnosis: ACUTE PHARYNGITIS (462.) End: 16-Jan-2011 11:44 [facility] Phone Encounter On: 24-Sep-2010 13:47 Encounter Diagnosis: Diarrhea (787.91) End: 24-Sep-2010 13:49 [facility] Phone Encounter On: 18-Sep-2010 8:51 Encounter Diagnosis: Diarrhea (787.91) End: 18-Sep-2010 8:56 [facility] Admission Note On: 25-Jun-2010 14:54 Encounter Diagnosis: ENTERITIS, CLOSTRIDIUM DIFFICILE (008.45) End: 25-Jun-2010 15:01 [facility] Phone Encounter On: 24-Jun-2010 12:25 Encounter Diagnosis: Diarrhea (787.91) End: 24-Jun-2010 12:29 [facility] Phone Encounter On: 12-May-2010 17:50 [facility] End: 12-May-2010 17:54 Office Visit On: 19-Feb-2010 13:13 Encounter Diagnosis: Cystitis,Acute (595.0) End: 19-Feb-2010 13:20 [facility] Phone Encounter On: 03-Sep-2009 13:36 Encounter Diagnosis: Diarrhea (787.91) End: 03-Sep-2009 13:37 [facility] Phone Encounter On: 18-Jun-2009 8:19 [facility] End: 18-Jun-2009 12:32 Phone Encounter On: 17-Jun-2009 17:05 [facility] End: 17-Jun-2009 17:09 Office Visit On: 13-Jun-2009 10:54 Encounter Reason: new patient female physical - Last seen between 1-3 months ago. General health: feels well with minor complaints. The patient's appetite is normal (has G tube patient does not eat orally [place] Jr. 290 End: 13-Jun-2009 14:32 ml qid inbetween 4 feedings gets a 300ml h20 or apple juice flush ). Exercises 0 days per week. Sleeps on average 7 hours per night. Elimination problems include constipation (OCC. patient is a MRCP pat ient ). Safety measures include appropriate use of safety belts and home smoke detectors. Current emotional problems include sleep disturbances. Encounter Diagnosis: Bacterial pneumonia, unspecified (482.9), Tracheostomy status (V44.0), Paraplegia (344.1), Infantile cerebral palsy, unspecified (343.9), Profound mental retardation (318.2), Backache, unspecified (724.5), SEIZURE, NOS (780.3), Unspecified visual disturbance (368.9), CEREBRAL PALSY, NOS (343.9), SCOLIOSIS, NOS (737.43) , Rash (782.1), Constipation(564.00) [facility] Historical Summary On: 01-May-2009 9:18 [facility] End: 01-May-2009 9:25 Payers MedicaidAnna Drew; a guarantor
--- OUTSIDE RECORDS SUMMARY | 2018-10-08 11:18 | XMS RPT_ITS | Continuity of Care Document ---
:1990 Author Organization [facility] Address [address] [place] [address] Phone Care Team Providers Name Role Phone [...] Propionate 50 MCG/ACT Nasal Suspension 2 (two) [place](s) [place](s) each nostril qd for 90 days Quantity: 1 {QS} Refills: 3 Ordered:16-Sep-2017 Karin Bermudez DO, DO, Kathleen Start : 16-Sep-2017 Active HumaLOG KwikPen 100 UNIT/ML Subcutaneous Solution Pen-injector 12 Unit with meals for 30 days Quantity: 1 {Pre-filled_Pen_Syringe} Refills: 5 Ordered:14-Jul-2018 Karin Bermudez DO, DO, Kathleen Start : 14-Jul-2018 Active Lantus SoloStar 100 UNIT/ML Subcutaneous Solution Pen-injector 12 Unit bid for 30 days Quantity: 1 {Box} Refills: 3 Ordered:14-Jul-2018 Karni Bermudez DO, DO, Kathleen Start : 14-Jul-2018 Active Miconazole Nitrate 2 % External Cream [...] Houston MD Start : 20-Jan-2016 Active Nyamyc 799439 UNIT/GM External Powder uad Powder to affected area(s) bid and prn for 0 days Quantity: 15 {Bottle} Refills: 6 Ordered:19-Nov-2017 Karin Bermudez DO, DO, Kathleen Start : 19-Nov-2017 End : 17-Nov-2013 Active Nystatin 819066 UNIT/GM External Cream uad Cream to affected area(s) bid prn for 7 days Quantity: 1 {Bottle} Refills: 3 Ordered:03-Jun-2018 Karin Bermudez DO, DO, Kathleen Start : 03-Jun-2018 Active Nystatin 016527 UNIT/ML Mouth/Throat Suspension 5 ml ml 5 times day for 10 days Quantity: 250 {Milliliter} Refills: 9 Ordered:03-Apr-2016 Jessica Almanza LPN Start : 03-Apr-2016 Active Nystatin Powder 1 Powder Powder tid for 10 days Quantity: 1 {Bottle} Refills: 3 Ordered:28-Jun-2017 Karin Bermudez DO, DO, Kathleen Start : 28-Jun-2017 Active Pen Ravenna 31G X 5 MM Miscellaneous 1 (one) [...] {Tablet} Refills: 6 Ordered:21-Mar-2015 Jessica Almanza LPN L Start : 22-May-2013 Active Xopenex 1.25 MG/3ML [...] days Quantity: 100 {Milliliter} Refills: 0 Ordered:11-Nov-2015 Alanasergeirickey JOHNSTONLiliam Start : 11-Nov-2015 End : 21-Nov-2015 Inactive CIPRO, 500 MG/5ML(10%) (Oral Suspension Reconstituted) For Suspension 5cc bid for 14 days for 14 days Refills: 0 Ordered:13-Jun-2009 Linda Houston MD Start : 13-Jun-2009 End : 15-Aug-2009 Inactive CIPRO, 500MG (Oral Tablet) 1 (one) [...] for 0 days Refills: 0 Ordered:23-Jun-2011 Long Jessica BOLDEN End : 23-Jun-2011 Inactive LevoFLOXacin 25 MG/ML [...] for 0 days Refills: 0 Ordered:23-Jun-2011 Long PPA TEACHER, Jessica L End : 23-Jun-2011 Inactive MUCINEX FOR KIDS, 100MG/5ML (Oral Liquid) Liquid 15 cc tid 14 days for 0 days Refills: 0 Ordered:23-Jun-2011 Long PPA TEACHER, Jessica L Start : 13-Jun-2009 End : [...] Quantity: 30 {Packet} Refills: 2 Ordered:15-May-2016 Long PPA TEACHER, Jessica L Start : 14-May-2016 End : [...] nostril qd for 0 days Quantity: 1 {[place]} Refills: 3 Ordered:09-Apr-2015 Linda Houston MD Start : 09-Apr-2015 End : 20-Jan-2016 Discontinued Comments:This order discontinued per [employer]. MUCOMYST, 20% (Inhalation Solution) 1 bid/prn for 0 days Refills: 0 Ordered:23-Jun-2011 Jessica Almanza LPN End : 23-Jun-2011 Discontinued Comments:This order discontinued per [employer]. VYTONE, 1-1% (External Cream) Cream bid for 0 days Quantity: 1 {Cream} Refills: 3 Ordered:13-Jun-2009 Jessica Almanza LPN Start : 13-Jun-2009 End : 23-Jun-2011 Discontinued [...] 09-Mar-2014 Acute renal failure (N17.9, 584.9) Comments: 9- when in hospital and will get report [...] Comments: See Note; NOTES: [facility] [place] [address] [place] [address] OFFICE VISIT Date of Service: 05/25/18 MR#: [id number] Acct: [id number] Name: MANDY MONTERO Rickey Rep #: [id number] : 1990 Provider: Lawrence Weiner MD Age/Sex: 28/F Location: [facility].PMW Status: Signed Assessment AND Plan Problems 1. [...] Date (if applicable) CC: Sandra Bermudez DO 24-Jan-2018 Emergency Department Summary Result: Comments: See Note; NOTES: [facility] Medical Records Department [address] [place] [address] Emergency Department Summary 01/24/18 1645 MR#: [id number] Acct: [id number] Name: MIGUELMANDY Rickey Rep #: [id number] : 1990 27 From: Stephan Hughes MD [...] Discharged to home Impression: 1. Cellulitis left [facility] region 2. Dysuria of unknown etiology 3. History of MRDD 4. History of Propulsid 5. History of chronic respiratory failure on ventilator This note was generated with [employer] dictation software. It m ay contain incorrect [...] Instructions: Mandy prescription was electronically transmitted to [facility], your [facility] What to do if you have Problems For any increased pain, shortness of breath, bleeding, nausea or vomiting, chest pain, or any unexpected problems, contact your Primary Care Provider. Call [facility] ([phone]) or report to the closest Emergency Room. Call 911 if necessary. 01/24/18 1749 <Electronically signed by Stephan Hughes MD> Date Stephan Hughes MD Cosigner Signature (If Indicated): Date CC: Sandra Bermudez DO 10-Dec-2017 Pulmonary Visit Report Result: Comments: See Note; NOTES: [facility] [address] [place] [address] OFFICE VISIT Date of Service: 12/09/17 MR#: [id number] Acct: [id number] Name: MANDY MONTERO Rickey Rep #: [id number] : 1990 Provider: Lawrence Weiner MD Age/Sex: 27/F Location: [facility].W Status: Signed Assessment AND Plan 1. Chronic [...] oral concentrate 5 mg PO BID ml 12/16/17 [History Confirmed 12/09/17] diazepam 5 mg/mL oral [...] PO Q4H PRN #473 ml 12/09/17 [Rx] PFS Medical History Pneumonia (Resolved) Cerebral palsy (Chronic) [...] signed by Maryse Weiner MD> Date Lawrence Weiner MD Cosigner Signature: Date (if applicable) CC: Sandra Bermudez 03-Sep-2017 Pulmonary Visit Report Result: Comments: See Note; NOTES: [facility] [place] [address] [place] [address] OFFICE VISIT Date of Service: 09/02/17 MR#: [id number] Acct: [id number] Name: MANDY MONTERO Rep #: [id number] : 1990 Provider: Lawrence Weiner MD Age/Sex: 27/F Location: [facility].PMW Status: Signed Assessment AND Plan 1. Spastic [...] secondary to allergic triggers. After discussion with th e mother, patient will be given guaifenesin to help with any thick secretions. Patient already has an aggressive pulmonary toileting regimen at baseline. Signs and symptoms of exacerbation were reviewed in detail. Add guaifenesin as needed. Continue current mechanical ventilation. Plan Detail Other Medications New: cetirizine (Children's Zyrtec Allergy) 10 mg (10 mL) PO QDAY PRN allergy jvuxaeidB50 .2 Ok to give through PEG Follow Up 3 Months (BWA) HPI 6 M FU: Chief Complaint: Increased secretions Details: Patient is a 27-year-old female who presents for evaluation secondary to incre ased secretions. Since last visit, patient's mother denies any ER visits, hospitalizations or prednisone burst. Patient does suffer from cerebral palsy and is unable to answer for herself. Patient pres ents on a cot with her mother and healthcare pharmacy technician assistant. Family reports the patient has had copious [...] Department Summary Result: Comments: See Note; NOTES: [facility] Medical Records Department [address] [place] [address] Emergency Department Summary MR#: [id number] Acct: [id number] Name: MANDY MONTERO Rep #: [id number] : 1990 26 From: Flip Jessica MD PCP: Sandra Bermudez DO Status: [facility] ER DATE OF SERVICE: 03/06/2017 CHIEF COMPLAINT: [...] . Flip Jessica MD T: NTS JOB: [id number] 03/10/17 0806 <Electronically signed by Flip Jessica MD> Date Flip Jessica MD Cosigner Signat ure (If Indicated): Date CC: Sandra Bermudez DO Date Dictated: 03/06/171722 Date Transcribed: 03/06/171722 Line Servicer: Signed 06-Mar-2017 Discharge Instruction Result: Comments: See Note; NOTES: [facility] Medical Records Department [address] [facility] [place] [address] Discharge Instruction 03/06/171719 MR#: [id number] Acct: [id number] Name: ROMELIA MONTERO ANABELA Jefferson Rep #: [id number] : 1990 26 From: Flip Jessica MD PCP: Sandra Bermudez DO Status: REG ER ED Disposition - Plan for ED Patient: Chief Complaint: Back Instructions: ED Neck Back Pain Gener al Referrals: Sandra Bermudez, [Primary Care Provider] - 3-5 Days What to do if you have Problems For any increased pain, shortness of breath, bleeding, nausea or vomiting, chest pain, or any une xpected problems, contact your Primary Care Provider. Call [facility] ([phone]) or report to the closest Emergency Room. Call 911 if necessary. 03/06/17 1720 <Electronically signed by Flip Jessica MD> Date Flip Jessica MD Cosigner Signature (If Indicated): Date CC: Sandra Bermudez DO 06-Mar-2017 Chest 1 View Result: Comments: See Note; NOTES: [facility] Imaging Services [address] [place] [address] Verdana 4d Chest 1 View MR#: [id number] Acct: [id number] Name: MANDY MONTERO Rep #: [id number] : 1990 F 26 From: Merritt Bolton MD PCP: Sandra Bermudez DO Status: REG ER Study: Chest 1 View Date of Exam: 03/06/17 Exam# [id number] Ordering Dr: Flip Jessica MD STUDY: X-RAY [...] CC: Flip Jessica MD; Sandra Bermudez DO Line Servicer: Signed 06-Mar-2017 Thoracic Spine 3 Views Result: Comments: See Note; NOTES: [facility] Imaging Services [address] [place] [address] Verdana 4d Thoracic Spine 3 Views MR#: [id number] Acct: [id number] Name: MANDY MONTERO Rep # : [id number] : 1990 F 26 From: Merritt Bolton MD PCP: Sandra Bermudez DO Status: REG ER Study: Thoracic Spine 3 Views Date of Exam: 03/06/17 Exam# [id number] Ordering Dr: Flip Jessica MD [facility] DY: X-RAY - THORACIC [...] CC: Flip Jessica MD; Sandra Bermudez DO Line Servicer: Signed 10-Sep-2016 Chest 1 View (Portable) Result: Comments: See Note; NOTES: [facility] Imaging Services [address] [place] [address] Verda 4d Chest 1 View (Portable) MR#: [id number] Acct: [id number] Name: MANDY MONTERO Rickey Rep #: [id number] : 1990 F 26 From: Mandy Chávez MD PCP: Sandra Bermudez DO Status: PRE ER Study: Chest 1 View (Portable) Date of Exam: 09/10/16 Exam# [id number] Ordering Dr: Vinnie Sher MD STUDY: X-RAY [...] MD at 23:49 EST , Service support [phone], CC: Linden Sher MD; Sandra Bermudez DO Line Servicer: Signed 12-Mar-2016 Emergency Department Summary Result: Comments: See Note; NOTES: [facility] Medical Records Department [address] [place] [address] Emergency Department Summary MR#: [id number] Acct: [id number] Name: MANDY MONTERO Rep #: [id number] : 1990 25 From: Joseph Mcgee MD [...] improving. DISPOSITION: Home, stable condition. IMPRESSION: Diarrhea. Joseph Mcgee MD C C: Jewel Baxter T: NTS JOB: [id number] 03/12/16 0008 <Electronically signed by Joseph Mcgee MD> Date Joseph Mcgee MD Cosigner Signature (If Indicated): Date _ CC: Jewel Baxter Date Dictated: 02/29/16112 Date Transcribed: 02/29/16112 Line Servicer: Signed 28-Feb-2016 Discharge Instruction Result: Comments: See Note; NOTES: [facility] Medical Records Department [address] [place] [address] Discharge Instruction 02/28/161925 MR#: [id number] Acct: [id number] Name: MANDY MONTERO Rep #: [id number] : 1990 25 From: Joseph Mcgee MD [...] problems, contact your doctor. Call [facility] ([phone]) or report to the closest Emergency Room. Call 911 if necessary. [phone] <Electronically signed by Joseph Mcgee MD> Date Joseph Mcgee MD Cosigner Signature (If Indicated): Date ___ CC: Roe Baxter 28-Feb-2016 Abdomen/Pelvis without Cont Result: Comments: See Note; NOTES: [facility] Imaging Services [address] [place] [address] Verdana 4d Abdomen/Pelvis without Cont MR#: [id number] Acct: [id number] Name: MANDY MONTERO Rep #: [id number] : 1990 F 25 From: Seymour Villagomez MD PCP: Roe Baxter Status: [facility] ER Study: Abdomen/Pelvis without Cont Date of Exam: 02/28/16 Exam# [id number] Ordering Dr: Joseph Patton MD STUDY: CT [...] MD at 18:47 EDT , Service support [phone], CC: Roe Baxter; Joseph Mcgee MD Line Servicer: Signed 25-Feb-2016 Emergency Department Summary Result: Comments: See Note; NOTES: [facility] Medical Records Department [address] [place] [address] Emergency Department Summary MR#: [id number] Acct: [id number] Name: MANDY MONTERO Rep #: [id number] : 1990 25 From: Tomás Willis MD [...] 3. History of respiratory failure. DISPOSITION: Home. Tomás Willis MD C C: Roe Baxter MD T: [facility] JOB: [id number] 02/25/167 <Electronically signed by Tomás Willis MD> Date Tomás Willis MD Cosigner Signature (If Indicated): Date CC: Roe Baxter Date Dictated: 02/23/16 152 Date Transcribed: 02/23/16 152 Line Servicer: Signed 23-Feb-2016 Discharge Instruction Result: Comments: See Note; NOTES: [facility] Medical Records Department [address] [place] [address] Discharge Instruction 02/23/16 1514 MR#: [id number] Acct: [id number] Name: MANDY MONTERO Rep #: [id number] : 1990 From: Tomás Willis MD PCP: [...] problems, contact your doctor. Call [facility] ([phone]) or report to the closest Emergency Room. Call 911 if necessary. [phone] <Electronically signed by Tomás Willis MD> Date Tomás Willis MD Cosigner Signature (If Indicated): Date CC: Roe Baxter 28-Jan-2016 Chest 1 View (Portable) Result: Comments: See Note; NOTES: [facility] Imaging Services [address] [place] [address] Verda 4d Chest 1 View (Portable) MR#: [id number] Acct: [id number] Name: MANDY ACUNA Rep #: [id number] : 1990 F 25 From: Abdirahman Awad MD PCP: Linda Houston MD Status: PRE ER Study: Chest 1 View (Portable) Date of Exam: 01/28/16 Exam# [id number] Ordering Dr: Edita Willis MD STUDY: X-RAY [...] MD at 22:53 EDT , Service support [phone], RAD/Chest 1 View (Portable) IMPRESSION: Retrocar diac density in left lower lobe possibly representing atelectasis or infiltrate. Recommend lateral view for further assessment Electronically Signed: Abdirahman Awad MD at 22:53 EDT , Service support [phone], CC: Linda Houston MD; Tomás Willis MD Line Servicer: Signed Family History Unknown Family Member Name Dates Details She was adopted at 5 months Status: Active Social History Name Dates Details Current Work/Study Status Comments: Disabled Status: Active Exercise History Comments: Inactive Status: Active [facility] Status: Active No Caffeine Use Status: Active No Drug Use Status: Active Non Drinker/No Alcohol Use Status: Active Non Smoker/No Tobacco Use Status: Active Vital Signs Date Test Result Details 46-Tbs-286301:15 Pulse 104 /min Comments: Pattern: Regular O2 SAT 99 % Comments: Room air BP Systolic 118 mm[Hg] Comments: Patient Position: Sitting; Cuff Location: Left Arm; Cuff Size: Standard BP Diastolic 78 mm[Hg] Comments: Patient Position: Sitting; Cuff Location: Left Arm; Cuff Size: Standard Weight 100 lb Height 55.5 in Body Mass Index Calculated 22.83 kg/m2 Body Surface Area Calculated 1.31 m2 36-Rdm-036836:08 Pulse 86 /min Comments: Pattern: Regular O2 [...] Arm; Cuff Size: Standard Weight 87 lb 2-Erh-354454:56 Comments: unable to obtain height weight reported [...] Results Date Description Value Details :37 TSH (91872) Comments: PATIENT NOT FASTINGPERFORMED BY: CB [facility] Dhlhqm0233 [facility] [id number] BY: BN [facility] [address] [id number] TSH 1.030 {uIU/mL} (Normal) Range: 0.450-4.500 07-Pvh-930196:37 T4, FREE (THYROXINE) Comments: PATIENT NOT FASTINGPERFORMED BY: [facility] Hqhbrk4741 [facility] [id number] BY: [address] [id number] (23849) T4,Free(Direct) 0.84 ng/dL (Normal) Range: 0.82-1.77 19-Hfn-168943:37 T3, FREE (TRIDOTHYRONINE) Comments: PATIENT NOT FASTINGPERFORMED BY: [facility] Lkjoux5876 [facility] [id number] BY: [address] [id number] (41968) Triiodothyronine (T3), Free 2.6 pg/mL (Normal) Range: 2.0-4.4 :37 CALCIFIDIOL (99869) VIT D Comments: PATIENT NOT FASTINGPERFORMED BY: [facility] 2623770 [facility] [id number] BY: [address] [id number] 25 Vitamin D, 25-Hydroxy 42.6 ng/mL (Normal) Range: 30.0-100.0 Comments: Vitamin D deficiency has been defined by the Brady ofMedicine and an Endocrine Society practice guideline as alevel of serum 25-OH vitamin D less than 20 ng/mL (1,2).The Endocrine Society went on to further define vitamin Dinsufficiency as a level between 21 and 29 ng/mL (2).1. IOM (Brady of Medicine). 2010. Dietary reference intakes for calcium and D. [place]: The National Academies Press.2. Gabbi MF, Singh [place], Twin-Bhanu JOSEPH, et al. Evaluation, treatment, and prevention of vitamin D deficiency: an Endocrine Society clinical practice guideline. JCEM. 2010; 96(7):1911-30. 80-Nhd-640485:37 TRILEPTAL-OXCARBAZEPINE 017311 Comments: send results to dr sandy storm; PATIENT NOT FASTINGPERFORMED BY: [facility] [place] 2623770 [facility] [id number] BY: Lab[address] [id number] (89846) Oxcarbazepine 49 ug/mL (Abnormal) Range: 10-35 Comments: Detection Limit = 1 43-Ckp-395914:37 CBC with auto diff Comments: send results to dr delgado too; PATIENT NOT FASTINGPERFORMED BY: [facility]CoCo[facility] HospitalWohrwe8059 [facility] [id number] BY: [address] [id number] (01244) Immature Grans (Abs) 0.0 {x10E3/uL} (Normal) Range: [...] 3.77-5.28 WBC 6.3 {x10E3/uL} (Normal) Range: 3.4-10.8 08-Giu-616282:37 METABOLIC PANEL, Comments: send results to dr delgado too; PATIENT NOT FASTINGPERFORMED BY: [employer] [facility] [id number] BY: [employer] [id number] COMPREHENSIVE (58447) ALT (SGPT) 38 [iU]/L (Abnormal) Range: 0-32 [...] 6-20 Glucose 237 mg/dL (Abnormal) Range: 65-99 10-Mrs-945050:37 HGB A1C (20872) Comments: PATIENT NOT FASTINGPERFORMED BY: [facility] SystemsRebecca [place] 9778870 [facility] [id number] BY: [employer] [id number] Hemoglobin A1c 6.3 % (Abnormal) Range: 4.8-5.6 Comments: . Prediabetes: 5.7 - 6.4 Diabetes: >6.4 Glycemic control for adults with diabetes: <7.0 38-Zpr-163906:00 Urinalysis, Complete Comments: How was Urine Obtained? [facility] [address] [place], [place], [id number] MUCUS, URINE 0 SEEN {/hpf} (Normal) BACTERIA [...] (Abnormal) CLARITY Clear (Normal) COLOR Yellow (Normal) 13-Lvc-690069:50 Basic Metabolic Profile (BMP) Comments: [facility] [address] [place], [place], [id number] GAP 8 (Normal) Range: 5-15 CO2 28.0 [...] A.D.A. criteria.Please note revised GLUCOSE reference range yczyknlwd44/02/2018. 70-Sgr-804175:50 CBC W/Diff, Automated Comments: [facility] [address] [place], [place], [id number] Absolute Lymph 1.52 {X10_3/ul} (Normal) Range: 0.83-4.51 [...] 4.2-5.4 WBC 6.0 K/mm3 (Normal) Range: 4.4-11.0 70-Llm-44874:00 Lactic Acid Comments: Yes/No query for Sepsis Lactate Rule [facility] Vsjelfiauy6137 JONATHAN Sinha, [address] LACTIC ACID 2.0 mmol/L (Normal) Range: 0.4-2.0 Comments: Critical Result(s) Called at: 18:33:30 01/24/2018 by:[facility]flag[facility] 55-Rbb-993432:39 TSH (72313) Comments: PATIENT NOT FASTINGPERFORMED BY: LabCoIn[facility] House Health CenterOziynm4980 [facility] [id number] BY: LabCo[address] [id number] TSH 1.150 {uIU/mL} (Normal) Range: 0.450-4.500 04-Zze-560099:39 METABOLIC PANEL, Comments: PATIENT NOT FASTINGPERFORMED BY: [facility] Wefrhn0261 [facility] [id number] BY: LabCo[address] [id number] COMPREHENSIVE (27107) ALT (SGPT) 18 [iU]/L (Normal) Range: 0-32 [...] Glucose, Serum 138 mg/dL (Abnormal) Range: 65-99 29-Ddg-596954:39 CBC W/AUTO DIFF WBC Comments: PATIENT NOT FASTINGPERFORMED BY: CB [facility] Futduy2834 [facility] [id number] BY: BN [facility] Iyialhqmwh5545 [facility] [id number] (49875) Immature Grans (Abs) 0.0 {x10E3/uL} (Normal) Range: [...] 6.6 {x10E3/uL} (Normal) Range: 3.4-10.8 :39 TRILEPTAL-OXCARBAZEPINE 173814 Comments: PATIENT NOT FASTINGPERFORMED BY: [employer]70 [facility] [id number] BY: [employer] [id number] (88785) Oxcarbazepine 28 ug/mL (Normal) Range: 10-35 Comments: Detection Limit = 1 :39 CALCIFIDIOL (33665) VIT D Comments: PATIENT NOT FASTINGPERFORMED BY: [employer] LabTwigmorerp Ndoijb8757 [facility] [id number] BY: [employer] Energyrp [address] [id number] 25 Vitamin D, 25-Hydroxy 56.3 ng/mL (Normal) Range: 30.0-100.0 Comments: Vitamin D deficiency has been defined by the Brady ofUniversity Hospitals St. John Medical Centercine and an Endocrine Society practice guideline as alevel of serum 25-OH vitamin D less than 20 ng/mL (1,2).The Endocrine Society went on to further define vitamin Dinsufficiency as a level between 21 and 29 ng/mL (2).1. IOM (Brady of Medicine). 2010. Dietary reference intakes for calcium and D. [place]: The National Academies Press.2. Gabbi MF, Singh MCKEON, Pollo JOSEPH, et al. Evaluation, treatment, and prevention of vitamin D deficiency: an Endocrine Society clinical practice guideline. JCEM. 2010; 96(7):1911-30. :39 HGB A1C (21884) Comments: PATIENT NOT FASTINGPERFORMED BY: [facility] Eofoan2117 [facility] [id number] BY: LabCoCarol Ville 426487 [facility] [id number] Hemoglobin A1c 5.7 % (Abnormal) Range: 4.8-5.6 Comments: . Pre-diabetes: 5.7 - 6.4 Diabetes: >6.4 Glycemic control for adults with diabetes: <7.0 20-Apr-20174:11 THROAT CULTURE (89486) Comments: PATIENT NOT FASTINGPERFORMED BY: [facility] Gaxmyy4531 [facility] [id number] Information: SRC: Result 1 RRF (Normal) Comments: Routine respiratory jasper Upper Respiratory Culture Final report (Normal) 64-Tcr-988646:35 CBC W/Diff, Automated Comments: [facility] [address] [place] [address], [id number] Absolute Lymph 1.23 {X10_3/ul} (Normal) Range: 0.83-4.51 [...] K/mm3 (Normal) Range: 4.4-11.0 :35 CRP Comments: [facility] [address] [place], [place], [address] C-REACTIVE PROT < 2.90 mg/L (Normal) Range: 0.0-3.0 Comments: C-Reactive Protein (CRP) provides useful information for thediagnosis, therapy and monitoring of inflammatory processesand associated diseases. For the evaluation of Relative Riskfor Cardiovascular Dise ase, a High Sensitivity CRP (HSCRP)should be ordered. 0-Taf-190100:15 Culture, Nose Comments: [facility] [address] [place], [place], [address] CUN See Note (Normal) Comments: Comments: THICK [...] $ <=20 S(NF) indicates non-formulary drug at [facility]. Ap proval by Infectious Disease Specialist required before non-formulary drugs may be ordered and/or dispensed. Pseudomonas aeroginosa: REACTION Cefepime $ <=1 S Ceftazidime *NF 2 S Ciprofloxacin $ 2 I Gentamicin $ <=1 S Imipenem *NF 1 S Levofloxacin $ 4 I Piperacillin/Tazobactam $$ 8 S Tobramycin $ <=1 S(NF) rocky joseluises non-formulary drug at [facility]. Approval by Infectious Disease Specialist required before non-formulary drugs may be ordered and/or dispensed. 32-Mhe-476363:34 LIPID PANEL (86644) Comments: PATIENT NOT FASTINGPERFORMED BY: [employer] EnergyRebecca [place] [id number] [facility] [id number] BY: [employer] [id number] LDL/HDL Ratio 1.5 {ratio_units} (Normal) Range: 0.0-3.2 Comments: LDL/HDL Ratio Men Women 1/2 Avg.Risk 1.0 1.5 Av g.Risk 3.6 3.2 2X Avg.Risk 6.2 5.0 3X Avg.Risk 8.0 6.1 LDL Cholesterol Calc 76 mg/dL (Normal) Range: 0-99 VLDL Cholesterol Dirk 17 mg/dL (Normal) Range: 5-40 HDL Cholesterol 50 mg/dL (Normal) Triglycerides 84 mg/dL (Normal) Range: 0-149 Cholesterol, Total 143 mg/dL (Normal) Range: 100-199 15-Yhv-755707:34 METABOLIC PANEL, Comments: PATIENT NOT FASTINGPERFORMED BY: [employer]6370 [facility] [id number] BY: [employer] [id number] COMPREHENSIVE (39982) ALT (SGPT) 20 [iU]/L (Normal) Range: 0-32 [...] Glucose, Serum 137 mg/dL (Abnormal) Range: 65-99 86-Eif-118749:34 CBC with auto diff Comments: PATIENT NOT FASTINGPERFORMED BY: CB [facility] Nykgyu3330 [facility] [id number] BY: BN [facility] [address] [id number] (21669) Immature Grans (Abs) 0.0 {x10E3/uL} (Normal) Range: [...] 3.77-5.28 WBC 4.5 {x10E3/uL} (Normal) Range: 3.4-10.8 98-Iby-011116:34 TRILEPTAL-OXCARBAZEPINE [id number] Comments: PATIENT NOT FASTINGPERFORMED BY: [employer] [facility] [id number] BY: [place] [id number] (72201) Oxcarbazepine 23 ug/mL (Normal) Range: 10-35 Comments: Detection Limit = 1 :34 HGB A1C (37292) Comments: PATIENT NOT FASTINGPERFORMED BY: [employer]70 [facility] [id number] BY: [employer] [id number] Hemoglobin A1c 6.1 % (Abnormal) Range: 4.8-5.6 Comments: . Pre-diabetes: 5.7 - 6.4 Diabetes: >6.4 Glycemic control for adults with diabetes: <7.0 76-Uyw-159296:34 CALCIFIDIOL (23963) VIT D Comments: PATIENT NOT FASTINGPERFORMED BY: [employer] Rbnlvn8391 [facility] [id number] BY: avandeo[address] [id number] 25 Vitamin D, 25-Hydroxy 49.1 ng/mL (Normal) Range: 30.0-100.0 Comments: Vitamin D deficiency has been defined by the Brady ofMedicine and an Endocrine Society practice guideline as alevel of serum 25-OH vitamin D less than 20 ng/mL (1,2).The Endocrine Society went on to further define vitamin Dinsufficiency as a level between 21 and 29 ng/mL (2).1. IOM (Brady of Medicine). 2010. Dietary reference intakes for calcium and D. [place]: The National Academies Press.2. Gabbi MF, Singh MCKOEN, Pollo JOSEPH, et al. Evaluation, treatment, and prevention of vitamin D deficiency: an Endocrine Society clinical practice guideline. JCEM. 2010; 96(7):1911-30. 81-Fql-503688:15 Culture, Throat Comments: [facility] [address] [place], [address] CUT See Note (Normal) Comments: Culture, ThroatMixed normal respiratory jasper. No Haemophilus, Streptococcus pneumoniae, beta-hemolytic Streptococcus or Staphylococcus aureus isolated. Copy of report sent to Infection Control Pr inter [id number] 01/04/17 0691 NSTANSLOS. ORGANISM 1: Serratia marcescensAmount Growth 1+ Serratia marcescens: REACTION Amoxacillin/Clavulanic Acid $ >=32 R Cefazolin $ >=64 R Cefepime $ <=1 S Ceftriaxone $ <=1 S Ciprofloxacin $ <=0.25 S Ertapenim $$$ <=0.5 S Gentamicin $ <=1 S Levofloxacin $ 0.5 S Tobramycin $ <=1 S Trimethoprim/Sulfametho $ <=20 S(NF) indicates non-formulary drug at [facility]. Approval by Infec tious Disease Specialist required before non-formulary drugs may be ordered and/or dispensed. :30 Culture, Wound Comments: [facility] Uxdbmsjocn[address] [place], [address] CUW See Note (Normal) Comments: Comments: COLLECTED FROM TRACHEA STOMA/DX THICK SPUTUMGram StainGram Stain No organisms seen Wound CultureNo Haemophilus, Streptococcus pneumoniae, beta-hemolytic Streptococcus or Staphylococcus aureu s isolated. Copy of report sent to Infection Control Printer [id number] 12/09/16 9289 DCANNON. ORGANISM 1: Serratia marcescensAmount Growth 1+ [...] $ <=20 S(NF) indicates non-formulary drug at [facility]. Approval by Infectious Disease Specialist required before non-formulary drugs may be ordered and/or dispensed. Pseudomonas aeroginosa: REACTION Cefepime $ <=1 S Ceftazidime *NF <=1 S Ciprofloxacin $ 0.5 S Gentamicin $ <=1 S Imipenem *NF 1 S Levofloxacin $ 1 S Piperacillin/Tazobactam $$ 8 S Tobramycin $ <=1 S(NF) indicates non-formulary drug at [facility]. Approval b y Infectious Disease Specialist required before non-formulary drugs may be ordered and/or dispensed. :37 Base Excess ISTAT Comments: [place] [address] [place] [address] BE ISTAT 6 mmol/L (Abnormal) 09-Ssk-477822:37 Bicarbonate ISTAT Comments: [place] [address] [place], [place] [address] HCO3 ISTAT 30 mmol/L (Abnormal) Range: 22-26 Comments: Site = R BrachialAllens Test = NAMode = A-CDevice = VentFIO2 = 40Results To = ED MDTime Given = 2350MV = 4.5VT = 250RR = 21PEEP = 7 :37 Blood Gas Specimen Type Comments: [place] [address] [place] [address] BLD GAS TYPE ART (Normal) 01-Zfo-907022:37 pCO2 - ISTAT 40.0 {mmHg} (Normal) Comments: [facility] LaboratoryPoint [place] [address] [place] [address] Range: 35-45 90-Uyv-214642:37 pH - I-STAT 7.48 (Abnormal) Comments: [place] [address] [place] [address] Range: 7.35-7.45 36-Ptl-605368:37 PO2 I-STAT 65 {mmHG} (Abnormal) Comments: [facility] [place] [address] [address] [place] [address] Range: 75-100 :37 SO2 ISTAT 94 % (Abnormal) Comments: [place] [address] [place] [address] Range: 95-99 :37 Total Carbon Dioxide ISTAT Comments: [place] [address] [place] [id number] TOTAL CO2 ISTAT 31 mmol/L (Normal) 68-Uun-247375:55 Basic Metabolic Profile (BMP) Comments: [place] [address] [address] [place], [address] GAP 5 (Normal) Range: [...] Range: 70-110 :55 CBC W/Diff, Automated Comments: [facility] [address]drha[address] [place], [place], [address] Absolute Lymph 1.51 {X10_3/ul} (Normal) Range: 0.83-4.51 [...] :52 Anaerobic and Aerobic Comments: PERFORMED BY: [facility] Nzwbsu1430 [facility] [id number] Information: buttock SRC:WO Culture Antimicrobial MIHEAD (Normal) [...] 72 hours. Anaerobic Culture Final report (Normal) 2-Zsl-129715:39 CBC With Differential/Platelet Comments: PERFORMED BY: [facility] Dqkxxl6516 [facility] [id number] BY: [facility] [address] [id number] Immature Grans (Abs) 0.0 {x10E3/uL} (Normal) Range: [...] 3.77-5.28 WBC 5.1 {x10E3/uL} (Normal) Range: 3.4-10.8 7-Xry-288093:39 Comp. Metabolic Panel Comments: PERFORMED BY: CB [facility] Qdbfdg5820 [facility] [id number] BY: [facility] [address] [id number] (14) ALT (SGPT) 27 [iU]/L (Normal) Range: [...] 65-99 :39 Oxcarbazepine (Trileptal),S Comments: PERFORMED BY: [employer] [facility] [id number] BY: [employer] [id number] Oxcarbazepine 24 ug/mL (Normal) Range: 10-35 Comments: Detection Limit = 1 :39 TSH 1.640 {uIU/mL} Comments: PERFORMED BY: [employer] [address] [facility] [id number] BY: [employer] [id number] (Normal) Range: 0.450-4.500 :39 Vitamin B12 and Folate Comments: PERFORMED BY: [employer] [facility] [id number] BY: [employer] [id number] Folate (Folic Acid), 8.0 ng/mL (Normal) Comments: A serum folate concentration of less than 3.1 ng/mL isconsidered to represent clinical deficiency. Serum Vitamin B12 1048 pg/mL Range: 211-946 (Abnormal) : Vitamin D, 40.7 ng/mL (Normal) Comments: PERFORMED BY: CB [facility] Wewhgx9631 Mckenzie ReyesFormerly [facility]ar[place] [id number] BY: BN [facility] Gmkfsvqtqt9623 [facility] [id number] 39 25-Hydroxy Range: 30.0-100.0 Comments: Vitamin D deficiency has been defined by the Brady ofMedicine and an Endocrine Society practice guideline as alevel of serum 25-OH vitamin D less than 20 ng/mL (1,2).The Endocrine Society went on to further define vitamin Dinsufficiency as a level between 21 and 29 ng/mL (2).1. IOM (Brady of Medicine). 2010. Dietary reference intakes for calcium and D. [place]: The National Academies Press.2. Gabbi MF, Singh MCKEON, Pollo JOSEPH, et al. Evaluation, treatment, and prevention of vitamin D deficiency: an Endocrine Society clinical practice guideline. JCEM. 2010; 96(7):1911-30. 23-Wxd-034246:00 Urinalysis, Complete Comments: Order Date: 02/28/16How was Urine Obtained? [facility] Vemigvvcep8607 [facility] [address]. [place], [place], [id number] MUCUS, URINE RARE {/hpf} (Normal) BACTERIA 0 [...] CLARITY Sl. Cloudy (Normal) COLOR Yellow (Normal) 66-Aah-305800:00 Basic Metabolic Profile (BMP) Comments: [facility] [address]rf[address]yh[address] [place], [place], [address] GAP 8 (Normal) Range: 5-15 CO2 26.0 [...] 7-18 GLU 84 mg/dL (Normal) Range: 70-110 87-Tco-266404:00 CBC W/Diff, Automated Comments: [facility] [address]ovg[address] [place], [place], [address] Absolute Lymph 1.11 {X10_3/ul} (Normal) Range: 0.83-4.51 [...] 4.2-5.4 WBC 5.5 K/mm3 (Normal) Range: 4.4-11.0 :00 Lactic Acid Comments: [facility] [address] [place], [place], [id number] LACTIC ACID 1.6 mmol/L (Normal) Range: 0.4-2.0 27-Vog-619783:00 Lipase Comments: [facility] Qteedwaruw[address] [facility] [address] [place], [place], [address] LIPASE 177 U/L (Normal) Range: 73-393 27-Vvn-241414:00 Liver Profile Comments: [facility] Syomhoculu[address] [facility] [address] [place], [place], [address] D BILI 0.08 mg/dL (Normal) Range: 0.00-0.30 [...] (Normal) Range: 6.4-8.2 :30 CDIFF (Molecular) Comments: [facility] X[address]jtrjpkyb[address] [place], [address] CDIFF See Note (Normal) Comments: Cdiff-MolecularC. Diff DNA Negative- No toxigenic C. Diff DNA Detected :30 ENTERIC PATHOGEN PANEL STOOL Comments: [address] [place], [address] EP PANEL See Note (Normal) Comments: EP [...] DetectedRotavirus Not Detected :30 Stool Lactoferrin/WBC Comments: [address] [place], [address] WBCST See Note (Normal) Comments: Stool Lacto/WBCFecal WBC Lactoferrin Negative: No Fecal WBC Lactoferrin present :30 Stool Occult Blood iFOB Comments: [address] [place], [address] STOB See Note (Normal) Comments: STOB iFOBOccult Blood Negative 92-Aps-737444:35 Urinalysis, Complete Comments: How was Urine Obtained? [facility] SPECIMENWK[facility]tering [facility] [address]trfymsvmn[address] [place], [address] MUCUS, URINE 0 SEEN {/hpf} [...] (Normal) CLARITY Cloudy (Normal) COLOR Yellow (Normal) 64-Eai-316326:00 CBC W/Diff, Automated Comments: [facility] M[address]xdc[address]lj[address] [place], [address] SMEAR COMMENT SCANNED (Normal) Comments: LYMPHOPENIA NOTED [...] 4.2-5.4 WBC 6.8 K/mm3 (Normal) Range: 4.4-11.0 :00 Comprehensive Metabolic Profil Comments: [facility] [address] [place], [place], [id number] GAP 9 (Normal) Range: 5-15 CO2 29.0 [...] 7-18 GLU 84 mg/dL (Normal) Range: 70-110 30-Ujl-456513:00 Lactic Acid Comments: [facility] [address] [place], [place], [id number] LACTIC ACID 2.6 mmol/L (Abnormal) Range: 0.4-2.0 22-Xhy-741732:00 Partial Thromboplast Time Comments: [facility] [address] [place], [id number] PTT 26.7 s (Normal) Range: 24.1-36.2 29-Mqc-495552:00 Prothrombin Time w/INR Comments: [facility] [address] [place], [place], [id number] INR 1.0 (Normal) PROTIME 13.1 s (Normal) Range: 11.7-14.9 :25 PREALBUMIN (42460) Comments: PERFORMED BY: [facility] Demiqz2481 [facility] [id number] Prealbumin 27 mg/dL (Normal) Range: 9-31 Comments: [...] - 36 >70 years 9 - 32 71-Vht-869323:16 Clostridium difficile Toxin Comments: PERFORMED BY: [facility] Mxvayw9124 [facility] [id number] A+B, EIA (26906) C difficile Toxins A+B, EIA Negative (Normal) 92-Bms-341572:00 Culture, Urine Comments: [facility] [address] [place], [place], [address] CUUR See Note (Normal) Comments: Urine CultureCulture exhibits no growth. 29-Pmp-668507:00 Urinalysis, Complete Comments: How was Urine Obtained? CLEAN [facility] [address] [place], [place], [address] MUCUS, URINE 0 SEEN {/hpf} (Normal) BACTERIA [...] CLARITY Sl. Cloudy (Normal) COLOR Yellow (Normal) 20-Vhi-108094:30 Culture, Urine Comments: [facility] [address]mc[address] [place], [address] CUUR See Note (Normal) Comments: Urine CultureORGANISM 1: Enterococcus faecalisColony Count >100,000 Enterococcus faecalis: REACTION Ampicillin $ <=2 S Benzylpenicillin NF 2 S Ciprofloxacin $ <=0.5 S Gentamicin SYN-S S Levofloxacin $ 1 S Linezolid $$$$ 2 S Nitrofurantoin $ <=16 S Streptomycin $ SYN- S S Tetracycline NF >=16 R Vancomycin $ 1 S(NF) indicates non-formulary drug at [facility]. Approval by Infectious Disease Specialist required before non-formulary drugs may be ordered and/or dispensed. * CLSI guidelines does not recommend testing of cephalosporins. This interpretation is deduced from Beta-lactam/penicillin results. 33-Obt-213727:30 Urinalysis, Complete Comments: How was Urine Obtained? Urine, RandomWKettering [facility] [address]xluilxe[address] [place], [address] MUCUS, URINE 0 SEEN {/hpf} [...] CLARITY Sl. Cloudy (Normal) COLOR Yellow (Normal) 22-Lof-950750:00 ENTERIC PATHOGEN PANEL STOOL Comments: [facility] Rqcysuicrp0521 [facility] [place], [address] EP PANEL See Note (Normal) Comments: RESULTS CALLED TO DR. HOUSTON 09/10/15 @1952 BY THADDEUS.EP PANEL STOOLNot detected for Campylobacter group, Salmonella species, Shigella species, Vibrio Group, Yersinia enterocolitica, EHEC (Shiga Toxin 1, Shiga Toxin 2), Norovirus Gl/Gll, and Rotavirus A. Other common stool pathogens are not detected on this panel include: Aeromonas/Plesiomonas or parasites. Order testing for these organisms [facility] if suspected. This is an amplified DNA test which makes it both specific and sensitive. CAMPYLOBACTER Not DetectedSalmonella Not DetectedShigella sp. Not DetectedShiga Toxin Not DetectedYersinia Not DetectedVIBRIO Not DetectedNorovirus Not DetectedRotavirus Not Detected 58-Bpp-196276:00 Stool Lactoferrin/WBC Comments: [facility] [address] [place], [address] WBCST See Note (Normal) Comments: RESULTS CALLED TO DR. HOUSTON 09/10/15 @1952 BY THADDEUS.Stool Lacto/WBCFecal WBC Lactoferrin Negative: No Fecal WBC Lactoferrin present 36-Dmw-378487:00 Stool Occult Blood iFOB Comments: [facility] [address]vt[address] [place], [address] STOB See Note (Normal) Comments: RESULTS CALLED TO DR. HOUSTON 09/10/15 @1953 BY THADDEUS.STOB iFOBOccult Blood Negative :29 CBC with auto diff Comments: PERFORMED BY: [employer] EnergyCooper University HospitalUwzwcs7243 [facility] [id number] BY: [address] [id number] ([address]) Immature Grans (Abs) 0.0 {x10E3/uL} (Normal) Range: [...] 3.4-10.8 :29 METABOLIC PANEL, Comments: PERFORMED BY: [employer] Dyfzag3359 [facility] [id number] BY: [address] [id number] COMPREHENSIVE (08736) ALT (SGPT) 17 [iU]/L (Normal) Range: 0-32 [...] 73 mg/dL (Normal) Range: 65-99 20-Jan-20161:29 CALCIFIDIOL (56688) VIT D Comments: PERFORMED BY: [facility] Cwrhkl2921 [facility] [id number] BY: [facility] [address] [id number] 25 Vitamin D, 25-Hydroxy 39.5 ng/mL (Normal) Range: 30.0-100.0 Comments: Vitamin D deficiency has been defined by the Brady ofMedicine and an Endocrine Society practice guideline as alevel of serum 25-OH vitamin D less than 20 ng/mL (1,2).The Endocrine Society went on to further define vitamin Dinsufficiency as a level between 21 and 29 ng/mL (2).1. IOM (Brady of Medicine). 2010. Dietary reference intakes for calcium and D. [place]: The National Academies Press.2. Gabbi MF, Singh MCKEON, Pollo JOSEPH, et al. Evaluation, treatment, and prevention of vitamin D deficiency: an Endocrine Society clinical practice guideline. JCEM. 2010; 96(7):1911-30. 20-Jan-20161:29 TRILEPTAL-OXCARBAZEPINE [id number] Comments: PERFORMED BY: CB [facility] Igdxrs3995 [facility] [id number] BY: BN [facility] Ntpjyfogcp7715 [facility] [id number] (27003) Oxcarbazepine 38 ug/mL (Abnormal) Range: 10-35 Comments: Detection Limit = 1 60-Jpw-160937:30 CBC W/Diff, Automated Comments: [facility] [address] [place], [place], [address] Absolute Lymph 0.90 {X10_3/ul} (Normal) Range: 0.83-4.51 [...] 4.2-5.4 WBC 5.2 K/mm3 (Normal) Range: 4.4-11.0 42-Pxg-777603:30 Comprehensive Metabolic Profil Comments: [facility] [address]dtknht[address] [place], [place], [address] GAP 8 (Normal) Range: 5-15 CO2 26.0 [...] 200 mg/dLsuggests DIABETES MELLITUS per A.D.A. criteria. 91-Kda-634255:30 Lipid Profile Comments: [facility] J[address]wasokpa[address] [place], [address] VLDL 38 mg/dL (Normal) Range: 5-40 LDL [...] 200-240 mg/dL Borderline >240 mg/dL High Risk 80-Jqb-545276:30 Prealbumin Comments: [facility] [address]asgaq[address] [place], [place], [address] PREALBUMIN 26.0 mg/dL (Normal) Range: 20.0-40.0 82-Pzq-772545:30 Thyroid Stim Hormone (TSH) Comments: [facility] [address]uhoxnhb[address] [place], [address] TSH 1.02 {uIU/mL} (Normal) Range: 0.358-3.74 37-Gub-698461:30 Trileptal-Oxcarbazepine Comments: [facility] (refer to report for specific site)refer to report for address and phone number TRILEPT 140656 38 ug/mL (Abnormal) Range: 10-35 Comments: Detection Limit = 1Performed at: [facility] [id number] Director: Reji Gibson MD, Phone: [phone] 38-Drx-807887:30 Vitamin D,25 Hydroxy Comments: [facility] Lmfhpuljxi7627 [facility] [address]. [place], [address] Vitamin D 25-OH 38.4 ng/mL (Normal) Comments: Vitamin D 25(OH) Status Range Deficiency <20 ng/mL (50nmol/L) Insuffciency 20 - 30 ng/mL (50 - 75 nmol/L) Sufficiency 30 - 100 ng/mL (75 - 250 nmol/L) Toxicity >100 ng/mL (>250 nmol/L) 9-Vnn-580542:45 CBC-Complete Blood Cnt No Diff Comments: Test performed at:[facility] Bqdwlpshyz[address] [place] [address] MPV 10.5 fL (Normal) Range: [...] 4.2-5.4 WBC 6.3 K/mm3 (Normal) Range: 4.4-11.0 5-Epm-779548:45 Comprehensive Metabolic Profil Comments: Is Patient Taking Vitamins or Folic Acid Supplements? NTest performed at:[facility] Rxjrdvggxr8355 [facility] BonnieLuc[address] [place], [place] [address] GAP 7 (Normal) Range: 5-15 CO2 29.0 [...] <126 mg/dLsuggests IMPAIRED HOMEOSTASIS per A.D.A. criteria. 4-Rss-092701:45 CRP Comments: Is Patient Taking Vitamins or Folic Acid Supplements? NTest performed at:[facility] [address] [place] [address] C-REACTIVE PROT < 2.90 mg/L (Normal) Range: 0.0-3.0 Comments: C-Reactive Protein (CRP) provides useful information for thediagnosis, therapy and monitoring of inflammatory processesand associated diseases. For the evaluation of Relative Riskfor Cardiovascular Dise ase, a High Sensitivity CRP (HSCRP)should be ordered. 0-Mni-173939:45 Erythrocyte Sed Rate Comments: Test performed at:[facility] [address] [place] [address] SED RATE 13 mm/h (Normal) Range: 0-20 4-Yvf-739997:45 Folates, (Folic Acid) Comments: Is Patient Taking Vitamins or Folic Acid Supplements? NTest performed at:[facility] [address] [place] [address] FOLATES 15.70 ng/mL (Normal) Range: 3.1-17.5 7-Xwo-450177:45 Free T3 Comments: Is Patient Taking Vitamins or Folic Acid Supplements? NTest performed at:[facility] [address] [place] [address] FREE T3 2.4 pg/mL (Normal) Range: 2.18-3.98 6-Xsw-391072:45 Miscellaneous Lab Procedure Comments: Test(s) Ordered: OXCARBAZEPINE, #[id number], RED TOP SERUM/RFTest performed at:[facility] [address] [place] [address] MISC Comments: Oxcarbazepine (Trileptal), S Oxcarbazepine 35 ug/mL Ref: Detection Limit=1 TESTING PERFOR MED AT [facility] (Normal) rp. ORIGINAL REPORT ON FILE IN LAB CONTAINS ADDITIONAL TEST SITE INFORMATION. TEST 6-Icl-546889:45 Prealbumin Comments: Is Patient Taking Vitamins or Folic Acid Supplements? NTest performed at:[facility] Rpxqrmuizp2114 [facility] [place] [address] PREALBUMIN 30.9 mg/dL (Normal) Range: 20.0-40.0 5-Vjb-852683:45 ,Serum,hCG Quali. Comments: Test performed at:[facility] Vkixrqleux0566 [facility]. [place] [address] HCGSQUAL NEGATIVE {Negative} (Normal) Range: 0-9 Nonpreg HCG Qual triggr < 1 m[iU]/mL (Normal) :45 Prolactin Comments: Is Patient Taking Vitamins or Folic Acid Supplements? NTest performed at:[facility] Hxcrbrkcvy6282 [facility] [place] [address] PROLACTIN 9.5 ng/mL (Normal) Comments: NORMAL REFERENCE RANGES FEMALE NON- 2.2 - 30.3 ng/mL 8.1 - 347.6 ng/mL POST-MENOPAUSAL 0.7 - 3 1.5 ng/mL MALE 2.5 - 17.4 ng/mLNEW TEST METHOD AND REFERENCE RANGES FEBRUARY 01, 201218-Dec-20148-Vof-281369:45 T4 Free Direct Comments: Is Patient Taking Vitamins or Folic Acid Supplements? NTest performed at:[facility] [address] [place] [address] T4 FREE DIRECT 0.74 ng/dL (Abnormal) Range: 0.76-1.46 5-Set-139132:45 Thyroid Stim Hormone (TSH) Comments: Is Patient Taking Vitamins or Folic Acid Supplements? NTest performed at:[facility] [address] [place] [address] TSH 1.39 {uIU/mL} (Normal) Range: 0.358-3.74 5-Zju-085548:45 Urinalysis, Routine (Dipstick) Comments: How was Urine Obtained? Urine, RandomTest performed at:[facility] Bsbhutgwxq[address] [place] [address] LEUK ESTERASE 500 /ul (Abnormal) OCCULT BLOOD-UR Negative /ul (Normal) NITRITE UR Negative (Normal) UROBILI Normal mg/dL (Normal) PROT DIPSTX Negative mg/dL (Normal) pH UR 8.0 (Normal) Range: 5.0 - 8.0 SP.GR. DIPSTX 1.010 (Normal) Range: 1.002-1.030 KETONE UR Negative mg/dL (Normal) BILIRUBIN URINE Negative mg/dL (Normal) GLUCOSE, UR Normal mg/dL (Normal) CLARITY Sl. Cloudy (Normal) COLOR Yellow (Normal) 8-Nwc-306119:45 Vitamin B12 1089 pg/mL (Abnormal) Comments: Test performed at:[facility] [address] [place] [address] Range: 211-911 7-Kxn-793554:45 Vitamin D,25 Hydroxy Comments: Test performed at:[address] [address] Vitamin D 25-OH 23.9 ng/mL (Normal) Comments: Vitamin D 25(OH) Status Range Deficiency <20 ng/mL (50nmol/L) Insuffciency 20 - 30 ng/mL (50 - 75 nmol/L) Sufficiency 30 - 100 ng/mL (75 - 250 nmol/L) Toxicity >100 ng/mL (>250 nmol/L) 02-Dmn-719890:43 ALBUMIN SERUM (05876) Comments: PATIENT NOT FASTINGPERFORMED BY: [facility] Mqtoxl9964 [address]ublin [place] [id number] Albumin, Serum 4.7 g/dL (Normal) Range: 3.5-5.5 99-Sfl-596514:43 PREALBUMIN (07307) Comments: PATIENT NOT FASTINGPERFORMED BY: CB [facility] Jzccys6635 [address]ublin [place] [id number] Prealbumin 29 mg/dL (Normal) Range: 20-40 70-Ezz-776104:21 ANJELICA CULTURE-OTHER (66350) Comments: PATIENT NOT FASTINGPERFORMED BY: [facility] Kywhdo2162 [address]ublin [place] [id number] Information: SRC:THRT [id number] Result 1 RRF (Normal) Comments: Routine respiratory jasper Upper Respiratory Culture Final report (Normal) 78-Jzo-166090:43 PROLACTIN (16817) Comments: PATIENT NOT FASTINGPERFORMED BY: CB [facility] Fcexim4805 [address]ublin [place] [id number] Prolactin 13.8 ng/mL (Normal) Range: 4.8-23.3 68-Iop-196649:43 T3, FREE (TRIDOTHYRONINE) (17132) Comments: PATIENT NOT FASTINGPERFORMED BY: CB [facility] Iufztp4[address] RoadDublin [place] [id number] Triiodothyronine,Free,Serum 3.3 pg/mL (Normal) Range: 2.0-4.4 26-Wsf-134009:43 T4, FREE (THYROXINE) (95610) Comments: PATIENT NOT FASTINGPERFORMED BY: CB [facility] Bxlkmd4[address] RoadDublin [place] [id number] T4,Free(Direct) 1.14 ng/dL (Normal) Range: 0.82-1.77 81-Onz-577093:43 TSH (03329) Comments: PATIENT NOT FASTINGPERFORMED BY: [facility] Adjomp[address] [facility] [facility] [place] [id number] Information: [id number] TSH 1.580 {uIU/mL} (Normal) Range: 0.450-4.500 :00 [...] CDIFF See Note (Normal) Comments: FAXED TO [id number] C. Diff DNA Positive-Toxigenic C. Difficile DNA [...] spora, or Mi crosporidia. TESTING PERFORMED AT [facility]. ORIGINAL REPORT ON FILE IN LAB CONTAINS ADDITIONAL TEST SITE INFORMATION. Ova/Parasite Exam NO OVA, CYSTS, OR PARASITES FOUND. : STOB See Note (Normal) Comments: Occult Blood Negative : WBCST See Note (Normal) Comments: Fecal WBC Lactoferrin Negative: No Fecal WBC Lactoferrin present :15 CDIFF See Note (Normal) Comments: C. Diff DNA Negative- No toxigenic C. Diff DNA Detected 7-Yzn-289969:55 Oxcarbazepine (Trileptal),S Comments: PERFORMED BY: [address] [id number] BY: [address] [id number] Oxcarbazepine 32 ug/mL (Normal) Range: 10-35 Comments: Detection Limit = 1 :55 CALCIFIDIOL (98823) VIT D Comments: PERFORMED BY: [address] [id number] BY: [address] [id number] Vitamin D, 25-Hydroxy 27.4 ng/mL (Abnormal) Range: 30.0-100.0 Comments: Vitamin D deficiency has been defined by the Brady ofMedicine and an Endocrine Society practice guideline as alevel of serum 25-OH vitamin D less than 20 ng/mL (1,2).The Endocrine Society went on to further define vitamin Dinsufficiency as a level between 21 and 29 ng/mL (2).1. IOM (Brady of Medicine). 2010. Dietary reference intakes for calcium and D. [place]: The National Academies Press.2. Gabbi MF, Singh MCKEON, Polol JOSEPH, et al. Evaluation, treatment, and prevention of vitamin D deficiency: an Endocrine Society clinical practice guideline. JCEM. 2010; 96(7):1911-30. 3-Rzp-454438:55 Folate (36382) Comments: PERFORMED BY: [facility] [id number] BY: [employer] [id number] Folate (Folic Acid), Serum 16.3 ng/mL (Normal) Comments: A serum folate concentration of less than 3.1 ng/mL isconsidered to represent clinical deficiency. 6-Fyy-084520:55 VITAMIN B-12 (CYANOCOBALAMIN) Comments: PERFORMED BY: [facility] Labs[facility] [place] [id number] BY: [employer] [id number] (80501) Vitamin B12 889 pg/mL (Normal) Range: 211-946 :55 TSH (04005) Comments: PERFORMED BY: [employer] [place] [id number] BY: avande[address] [id number] TSH 1.670 {uIU/mL} (Normal) Range: 0.450-4.500 0-Crz-797924:55 SED RATE ERYTHROCYTE Comments: PERFORMED BY: [employer] [place] [id number] BY: avande[address] [id number] (74012) Sedimentation Rate-Westergren 6 mm/h (Normal) Range: 0-32 :55 METABOLIC PANEL, Comments: PERFORMED BY: [employer] Ivxrue1141 [facility] [id number] BY: [facility] [place] 426487 [facility] [id number] COMPREHENSIVE (82646) ALT (SGPT) 11 [iU]/L (Normal) Range: 0-32 [...] cells when received.This may adversely affect serumChemistries. 4-Cfm-958224:55 C-REACTIVE PROTEIN (16471) Comments: PERFORMED BY: [employer] Xnejom7036 [facility] [id number] BY: [employer] [id number] C-Reactive Protein, Quant 0.9 mg/L (Normal) Range: 0.0-4.9 1-Oqv-201155:55 CBC (AUTO) (40401) Comments: PERFORMED BY: [employer] EnergyCooper University HospitalUwowir1720 [facility] [id number] BY: [address] [id number] Platelets 213 {x10E3/uL} (Normal) Range: 140-415 Comments: [...] of these values in the reference population. 7-Qop-271127:29 ANJELICA CULTURE-OTHER (17627) Comments: PATIENT NOT FASTINGPERFORMED BY: [facility]6370 [facility] [id number] Information: SRC:LAMBERTO [id number] Result 1 RRF (Normal) Comments: Routine respiratory jasper Upper Respiratory Culture Final report (Normal) 4-Get-273972:03 Rapid Strep Test, Office (90257) Rapid Strep Test, Negative (Normal) Office 64-Rol-016167:55 CDIF See Note (Normal) Comments: A positive [...] in these cases. C. DIFF ANTIGENS POSITIVE 85-Brf-633841:30 CDIF See Note (Normal) Comments: RESULTS CALLED TO Shanita LEMUS 07/29/12 1458STMARKUS FELIPE.REPORT READ BACK BY ANNY . A positive [...] in these cases. C. DIFF ANTIGENS POSITIVE 21-Qsj-121138:00 CDIF See Note (Normal) Comments: A positive [...] (Abnormal) UCLAR CLEAR (Normal) UCOL STRAW (Normal) 6-Cbw-401236:05 C DIF TOXIN/AG See Note (Normal) Comments: C. DIFF ANTIGENS NEGATIVE 19-Pub-397098:2 TRILEPT 027934 20 ug/mL (Normal) Range: 10-35 4 Comments: Detection Limit = 1Performed at: BN - [facility] [address] [id number] Director: Reji Gibson MD, Phone: [phone] 99-Dwr-679929:1 C DIF TOXIN/AG See Note (Normal) Comments: RESULTS CALLED TO 06/23/112004 VONDA ELAM.REPORT READ BACK BY SAME . * This is an amended result. * A 5 prior result that was reported as final has been changed.06/23/112004 by IESHAPreviously reported as: C. DIFF ANTIGENS POSITIVE 57-Mqv-964036:46 COMP METABOLIC GAP 11 (Normal) Range: 5-15 [...] 7-18 GLU 71 mg/dL (Normal) Range: 70-110 04-Wco-071394:41 CBCD ABSOLUTE NEUT 5.0 3/uL (Normal) Range: [...] (Normal) Comments: C. DIFF ANTIGENS NEGATIVE :00 CUL STOOL/SHIG SHIGA-TOXIN See Note (Normal) Comments: [...] CRISELDA 07/16/10 1845 C. DIFF ANTIGENS POSITIVE :21 CUL STOOL/SHIG Comments: RESULTS CALLED TO OFFICE [...] Cyclospora, or Microspo ridia. TESTING PERFORMED AT [facility]. ORIGINAL REPORT ON FILE IN LAB CONTAINS ADDITIONAL TEST SITE INFORMATION. OVA/ PARASITES EXAM NO OVA, CYSTS, OR PARASITES FOUND. :21 WBC,STOOL See Note (Normal) Comments: RESULTS CALLED TO OFFICE TO RejiNBPEDCWD20/04/10 1151 KRISTIAN MILLER.REPORT READ BACK BY SAME [...] Cyclospora, or Microspo ridia. TESTING PERFORMED AT [facility]. ORIGINAL REPORT ON FILE IN LAB CONTAINS ADDITIONAL TEST SITE INFORMATION. OVA/ PARASITES EXAM NO OVA, CYSTS, OR PARASITES FOUND. :20 WBC,STOOL See Note (Normal) Comments: FECAL WBCs NONE SEEN 99-Txf-218638:14 C DIF TOXIN See Note (Normal) :44 O AND P See Note (Normal) Comments: OVA AND PARASITES EXAM, ROUTINE These results were obtained using wet preparation(s) and trichrome stained smear. This test does not include testing for Crytosporidium parvum, Cyclospora, or Microspo ridia. TESTING PERFORMED AT [facility]. ORIGINAL REPORT ON FILE IN LAB [...] Cyclospora, or Microspo ridia. TESTING PERFORMED AT [facility]. ORIGINAL REPORT ON FILE IN LAB [...] :00 TSH 1.63 {uIU/mL} (Normal) Range: 0.358-3.74 17-Mjx-609940:00 CULTURE, SPUTUM GRAM STAIN See Note (Normal) Comments: GRAM STAIN RARE WHITE BLOOD CELLS RARE GRAM POSITIVE COCCI RARE GRAM NEGATIVE RODS Plan of Care Name Dates Details Instructions Type II diabetes mellitus, well controlled : Continue Current Prescription(s) Indication: Type II diabetes mellitus, well controlled Convulsions : Reviewed Photography Professor Letter Indication: Convulsions Neuromuscular scoliosis : Follow [...] Cystitis, acute Planned Observations URINE ANJELICA CULTURE-IDENTIFICATN (37950)Indication: Abnormal urine On: 2-Ool-976856:25 Request MRSA Culture (67909)Indication: Thick sputum On: 6-Uwd-061745:32 Request Anaerobic & Aerobic Culture (96922)Indication: Thick sputum On: 61-Qlg-293329:46 Request Comments: collected from trachea stoma Anaerobic & Aerobic Culture (53369)Indication: Cellulitis of groin, right On: 1-Tmr-880176:44 Request TRILEPTAL-OXCARBAZEPINE [id number] (48926)Indication: Diarrhea On: :24 Request VITAMIN B12 AND FOLATES (56540)Indication: Diarrhea On: : Request CALCIFEDIOL (64175)Indication: Diarrhea On: : Request CALCIFEDIOL (99080)Indication: Diarrhea On: : Request TSH (THYROID STIMULATING HORMONE) (04603)Indication: Diarrhea On: : Request METABOLIC PANEL, COMPREHENSIVE (62905)Indication: Diarrhea On: : Request CBC, PLATELETS & AUT DIFF (11982)Indication: Diarrhea On: : Request OVA & PARASITE DIR SMEAR (25815)Indication: Diarrhea On: :46 Request ANJELICA CULTURE-STOOL (18620)Indication: Diarrhea On: 82-Ity-934539:46 Request OCCULT BLOOD FECES SCREEN (51590)Indication: Diarrhea On: :46 Request LEUKOCYTE COUNT, FECAL (27429)Indication: Diarrhea On: 61-Man-839759:46 Request C-DIFFICILE, STOOL (78556)Indication: Diarrhea On: 27-Vig-494149:46 Request OVA & PARASITE DIR SMEAR (81981)Indication: C. difficile diarrhea On: 0-Qwg-671783:50 Request OCCULT BLOOD FECES SCREEN (40049)Indication: C. difficile diarrhea On: 2-Buy-357368:50 Request ANJELICA CULTURE-STOOL (63433)Indication: C. difficile diarrhea On: 5-Mmi-551717:50 Request LEUKOCYTE COUNT, FECAL (04891)Indication: C. difficile diarrhea On: :50 Request C-DIFFICILE, STOOL (59199)Indication: C. difficile diarrhea On: 4-Cbu-066538:49 Request Clostridium difficile Culture (53422)Indication: Diarrhea On: 6-Sni-768673:52 Request URINALYSIS, W/ MICRO (59874)Indication: Dysuria On: :56 Request URINE ANJELICA CULTURE-SISSY COL COUNT (76006)Indication: Dysuria On: :54 Request OCCULT BLOOD FECES SCREEN (02248)Indication: Diarrhea On: :01 Request LEUKOCYTE COUNT, FECAL (47799)Indication: Diarrhea On: :05 Request ANJELICA CULTURE-STOOL (81975)Indication: Diarrhea On: :05 Request Clostridium difficile Toxin A+B, EIA (82195)Indication: Diarrhea On: :05 Request TRILEPTAL-OXCARBAZEPINE 784695 (11173)Indication: Convulsions On: 72-Plg-475246:55 Request PREALBUMIN (12188)Indication: Nutritional assessment On: :45 Request CALCIFIDIOL (50245) VIT D 25Indication: Vitamin D deficiency On: :44 Request TSH (16722)Indication: Hypertension On: :44 Request METABOLIC PANEL, COMPREHENSIVE (03951)Indication: Hypertension On: :44 Request LIPID PANEL (98143)Indication: Hypertension On: :44 Request CBC with auto diff (89243)Indication: Hypertension On: :44 Request Metabolic Panel, Basic (15926)Indication: Abnormal urine On: :03 Request VITAMIN B12 AND FOLATES (58643)Indication: Abnormal urine On: :03 Request CALCIFEDIOL (73222)Indication: Abnormal urine On: :03 Request Comments: vit d3 URINE ANJELICA CULTURE-SISSY COL COUNT (30370)Indication: Abnormal urine On: 1-Aqd-498524:52 Request TRILEPTAL-OXCARBAZEPINE 275197 (78922)Indication: Cerebral palsy On: :46 Request HCG Qualitative, Serum (20083)Indication: Amenorrhea On: 90-Ncj-629047:45 Request PROLACTIN (80348)Indication: Amenorrhea On: :44 Request PREALBUMIN (54262)Indication: Cerebral palsy On: 13-Xnn-551069:43 Request URINALYSIS (45650)Indication: Fatigue On: :43 Request T3, FREE (TRIDOTHYRONINE) (77263)Indication: Fatigue On: :43 Request T4, FREE (THYROXINE) (32876)Indication: Fatigue On: :43 Request Folate (22836)Indication: Fatigue On: :42 Request CALCIFIDIOL (34440) VIT D 25Indication: Fatigue On: :42 Request VITAMIN B-12 (CYANOCOBALAMIN) (17223)Indication: Fatigue On: :42 Request TSH (75419)Indication: Fatigue On: :42 Request SED RATE ERYTHROCYTE (07741)Indication: Fatigue On: :42 Request METABOLIC PANEL, COMPREHENSIVE (29190)Indication: Fatigue On: :42 Request C-REACTIVE PROTEIN (02973)Indication: Fatigue On: :42 Request CBC (AUTO) (29922)Indication: Fatigue On: :42 Request CULTURE,BODY FLUID (30851)Indication: Irregular Menstrual Cycle (Renamed from Irregular bleeding) On: 33-Qeu-465145:07 Request Comments: urine Rapid Strep Test, Office (98797)Indication: Pharyngitis, acute On: 97-Aiq-224308:51 Request Urinalysis, Office (35552)Indication: Fatigue On: 94-Fkn-854222:49 Request HgA1C , Office (66340)Indication: Hyperglycemia On: 28-Xqp-638846:41 Request CALCIFIDIOL (68063) VIT D 25Indication: Vitamin D deficiency On: 21-Oes-635677:32 Request TRILEPTAL-OXCARBAZEPINE 914217 (80579)Indication: Convulsions On: :31 Request Metabolic Panel, Comprehensive (26565)Indication: Acute renal failure On: :31 Request CBC with manual diff (27375)Indication: Hypertension On: :31 Request CBC with manual diff (42572)Indication: Thrombocytopenia, unspecified On: :35 Request Comments: in citrate tube FIBRINOGEN (67395)Indication: Thrombocytopenia, unspecified On: Request PTT (Activated Partial Thromboplastin Time) (79608)Indication: Thrombocytopenia, unspecified On: Request PT (Prothrobim Time) (74900)Indication: Thrombocytopenia, unspecified On: Request HEPATITIS C ANTIBODY (42660)Indication: Thrombocytopenia, unspecified On: Request HEPATITIS B CORE ANTBD-IGG/IGM (69982)Indication: Thrombocytopenia, unspecified On: Request HEPATITIS B SURFACE ANTIGEN (94291)Indication: Thrombocytopenia, unspecified On: Request HEPATITIS B SURFACE ANTIBODY (41234)Indication: Thrombocytopenia, unspecified On: Request Methylmalonic acid, serum 34585Lmobespyma: Thrombocytopenia, unspecified On: Request Vitamin B-12 (cyanocobalamin) (39077)Indication: Thrombocytopenia, unspecified On: Request Sed Rate Erythrocyte (94598)Indication: Thrombocytopenia, unspecified On: Request Metabolic Panel, Comprehensive (00327)Indication: Thrombocytopenia, unspecified On: Request JENNY (ANTINUCLEAR ANTIBODY) (15392)Indication: Thrombocytopenia, unspecified On: Request CBC with manual diff (04698)Indication: Convulsions On: :31 Request Clostridium difficile Toxin A+B, EIA (18705)Indication: Diarrhea On: :31 Request OVA & PARASITE DIR SMEAR (45168)Indication: Diarrhea On: :44 Request OCCULT BLOOD FECES SCREEN (55356)Indication: Diarrhea On: 44 Request LEUKOCYTE COUNT, FECAL (41495)Indication: Diarrhea On: 44 Request ANJELICA CULTURE-STOOL (12975)Indication: Diarrhea On: 44 Request Clostridium difficile Toxin A+B, EIA (31113)Indication: Diarrhea On: :22 Request C DIFF AMPLIFIED PROBE (87826)Indication: Diarrhea On: 98-Dad-59232:51 Request Metabolic Panel, Comprehensive (79906)Indication: Acute renal failure On: :08 Request Comments: recheck prior to August. CALCIFIDIOL (45374) VIT D 25Indication: Vitamin D deficiency On: 2-Lrj-149440:08 Request Comments: recheck prior to August. TRILEPTAL-OXCARBAZEPINE 421550 (71015)Indication: Convulsions On: 5-Wbc-305511:08 Request Culture, Stool (61906)Indication: Diarrhea On: 02-Xtd-094782:01 Request C DIFF AMPLIFIED PROBE (19778)Indication: Diarrhea On: :01 Request C DIFF AMPLIFIED PROBE (98606)Indication: Diarrhea On: 68-Wpt-165578:32 Request C DIFF AMPLIFIED PROBE (89531)Indication: Diarrhea On: 22-Zjk-212666:51 Request URINE ANJELICA CULTURE-IDENTIFICATN (54258)Indication: Backache On: 8-Hxa-292838:58 Request URINALYSIS (84128)Indication: Backache On: 4-Lvd-512670:58 Request Metabolic Panel, Comprehensive (86662)Indication: Profound mental retardation (Renamed from IQ under 20) On: 4-Fhv-211079:25 Request Comments: Dr Pino neurologist at [facility] CBC (Auto) (53448)Indication: Profound mental retardation (Renamed from IQ under 20) On: 3-Wji-692214:25 Request TRILEPTAL-OXCARBAZEPINE 897388 (11628)Indication: Cerebral palsy On: 1-Qhu-466374:24 Request COLUMN CHROMATOGRAPHY, SISSY, SINGLE (90826)Indication: Convulsions On: 24-Auw-726882:54 Request Comments: trileptal 760984 Clostridium difficile Toxin A+B, EIA (03550)Indication: Diarrhea On: 40-Edt-954509:26 Request CBC (Auto) (74190)Indication: Convulsions On: 89-Ctk-105809:25 Request Metabolic Panel, Comprehensive (83239)Indication: Convulsions On: 78-Gay-638375:24 Request ANJELICA CULTURE-OTHER (02404)Indication: Pharyngitis, acute On: 0-Uva-870140:44 Request C.Difficile, Stool (00252)Indication: Diarrhea On: 04-Ajf-718148:48 Request ANJELICA CULTURE-STOOL (36532)Indication: Diarrhea On: :55 Request C.Difficile, Stool (74316)Indication: Diarrhea On: :54 Request LEUKOCYTE COUNT, FECAL (55442)Indication: Diarrhea On: :27 Request OVA & PARASITE DIR SMEAR (48866)Indication: Diarrhea On: :27 Request C.Difficile, Stool (32725)Indication: Diarrhea On: :27 Request ANJELICA CULTURE-STOOL (46495)Indication: Diarrhea On: :27 Request TSH (39480)Indication: Unspecified bacterial pneumonia On: 5-Qua-070965:48 Request CBC, Platelets & Auto Diff (12073)Indication: Unspecified bacterial pneumonia On: :48 Request Magnesium (80607)Indication: Unspecified bacterial pneumonia On: 5-Pfa-783771:48 Request Phosphorus (44873)Indication: Unspecified bacterial pneumonia On: :48 Request Metabolic Panel, Basic (94952)Indication: Unspecified bacterial pneumonia On: 7-Ejc-130494:48 Request Planned Encounters Medical; 4 Month FU - On: 10-Oct-2018 13:15 [facility] Sandra Bermudez DO, DO, Kathleen Planned Procedures Flu Vaccine (Quadrivalent) On: 06-Jun-2018 Intent 10826Gv: Sandra Bermudez DO Comments: Lot #[id number]-L dltd, IMDose prefilled syringegiven by:MARICARMEN Santana reviewed and ABN signed Sandra Bermudez DO Flu Vaccine (Quadrivalent) On: 02-Aug-2017 Intent 20858Zk: Sandra Bermudez DO Comments: Lot:[id number]:12/29Amt:0.5mlRoute:IMSite: Rt DltdGiven By: ALFREDITO James signed Sandra Bermudez DO Flu Vaccine (Quadrivalent) On: 14-May-2016 Intent 10390Nu: Roe Baxter MD Comments: Lot #[id number]-L dltd, IMDose prefilled syringegiven by:ALFREDITO Goldberg and ABN signed ADMINISTRATION OF INFLUENZA On: 02-Aug-2015 Intent VIRUS VACCINE (G0008)By: Linda Houston MD Flu Vaccine (Quadrivalent) On: 02-Aug-2015 Intent 52499Pf: Linda Houston MD Comments: Lot #:[id number] date:Amount given:0.5mlRoute: IMSite given:L DltdGiven by: Jessica BASSETT and ABN signed Quad Flu ELECTROCARDIOGRAM, COMPLETE On: 21-Mar-2015 Intent (ECG) (09200)By: Linda Houston MD CT - Brain/Head (IV Contrast On: 29-Nov-2014 Intent Needed)By: Linda Houston MD ADMINISTRATION OF INFLUENZA On: 06-Aug-2014 Intent VIRUS VACCINE (G0008)By: TIMBO Villegas Flu Vaccine (Quadrivalent) On: 06-Aug-2014 Intent 11941Xv: TIMBO Villegas Comments: Lot #:[id number] date:mount given:0.5mlRoute: IM Site given:Given by: to be given per patient home health nurse CATHETERIZE FOR URINE SPEC On: 09-Mar-2014 Intent (P9612)By: Linda Houston MD Comments: pls use pediatric cath- and fax results to [phone] SPECIMEN HNDLNG/TRNSPRT, OFFC > On: 09-Mar-2014 Intent LAB (45048)By: Linda Houston MD IMMUNIZ ADMNIN, 1 VAC, On: 28-Jul-2013 Intent SNGL/COMBO (23227)By: Archie BOLDEN, Comments: Lot #[id number] to nurse for admin Jessica Stack FLU VAC, SPLIT, >3 YEARS, On: 28-Jul-2013 Intent INTRAMUSC (67522)By: Jessica Almanza LPN SPECIMEN HNDLNG/TRNSPRT, OFFC > On: 18-May-2013 Intent LAB (98118)By: Linda Houston MD Eprescribed prescriptions On: 18-May-2013 Intent (G8553)By: Jessica Almanza LPN FLU VAC, SPLIT, >3 YEARS, On: 23-Jun-2011 Intent INTRAMUSC (56638)By: Archie BOLDEN, Comments: Lot #[id number]-Sreekanth arm, IMDose prefilledgiven by:Jessica Stack IMMUNIZ ADMNIN, 1 VAC, On: 23-Jun-2011 Intent SNGL/COMBO (48562)By: Jessica Almanza LPN Instructions Name Dates Details [...] for the procedure will be Dr Beck [facility]. The chief complaint is teeth cleanin [...]
--- OUTSIDE RECORDS SUMMARY | 2018-10-08 11:20 | XMS RPT_ITS | Continuity of Care Document ---
:1990 Author Organization [facility] Address [address] [facility] [address] [place] [address] Phone Care Team Providers Name Role Phone [...] Propionate 50 MCG/ACT Nasal Suspension 2 (two) [place](s) [place](s) each nostril qd for 90 days Quantity: [...] days Quantity: 1 {Box} Refills: 3 Ordered:14-Jul-2018 Karin Bermudez DO, DO, Kathleen Start : 14-Jul-2018 Active Miconazole Nitrate 2 % External Cream 1 (one) Cream Cream three times daily for 10 days Quantity: 1 {Tube} Refills: 1 Ordered:14-May-2016 Daisy Pineda LPN Start : 14-May-2016 Active NAPHCON-A, 0.025-0.3% (Ophthalmic Solution) 1-2 gtt gtt up to qid prn for redness/itching for 0 days Quantity: 1 {Each} Refills: 0 Ordered:20-Jan-2016 Linda oHuston MD Start : 20-Jan-2016 Active Nyamyc 431402 UNIT/GM External Powder uad Powder to affected area(s) bid and prn for 0 days Quantity: 15 {Bottle} Refills: 6 Ordered:19-Nov-2017 Karin Bermudez DO, DO, Kathleen Start : 19-Nov-2017 End : 17-Nov-2013 Active Nystatin 763640 UNIT/GM External Cream uad Cream to affected area(s) bid prn for 7 days Quantity: 1 {Bottle} Refills: 3 Ordered:03-Jun-2018 Karin Bermudez DO, DO, Kathleen Start : 03-Jun-2018 Active Nystatin 032433 UNIT/ML Mouth/Throat Suspension 5 ml ml 5 times day for 10 days Quantity: 250 {Milliliter} Refills: 9 Ordered:03-Apr-2016 Long KIMI, Jessica L Start : 03-Apr-2016 Active Nystatin Powder 1 Powder Powder tid for 10 days Quantity: 1 {Bottle} Refills: 3 Ordered:28-Jun-2017 Karin Bermudez DO, DO, Kathleen Start : 28-Jun-2017 Active [place] 31G X 5 MM Miscellaneous 1 (one) [...] days Quantity: 30 {Tablet} Refills: 6 Ordered:21-Mar-2015 Long Jessica BOLDEN L Start : 22-May-2013 Active Xopenex 1.25 [...] days Quantity: 100 {Milliliter} Refills: 0 Ordered:11-Nov-2015 Liliam Montalvo CNP Start : 11-Nov-2015 End : 21-Nov-2015 Inactive [...] Quantity: 540 {Syrup} Refills: 5 Ordered:13-Jun-2009 TIMBO Vlilegas Start : 13-Jun-2009 Inactive ERYTHROMYCIN, 5MG/GM (Ophthalmic [...] for 0 days Refills: 0 Ordered:23-Jun-2011 Long FURNACE LOADER, Jessica L End : 23-Jun-2011 Inactive LevoFLOXacin [...] for 0 days Refills: 0 Ordered:23-Jun-2011 Long FURNACE LOADER, Jessica L End : 23-Jun-2011 Inactive MUCINEX FOR KIDS, 100MG/5ML (Oral Liquid) Liquid 15 cc tid 14 days for 0 days Refills: 0 Ordered:23-Jun-2011 Long FURNACE LOADER, Jessica L Start : 13-Jun-2009 End : [...] Quantity: 30 {Packet} Refills: 2 Ordered:15-May-2016 Long FURNACE LOADER, Jessica L Start : 14-May-2016 End : [...] nostril qd for 0 days Quantity: 1 {[place]} Refills: 3 Ordered:09-Apr-2015 Linda Houston MD Start : 09-Apr-2015 End : 20-Jan-2016 Discontinued Comments:This order discontinued per [employer]. MUCOMYST, 20% (Inhalation Solution) 1 bid/prn for 0 days Refills: 0 Ordered:23-Jun-2011 Archie WOLFN, Jessica L End : 23-Jun-2011 Discontinued Comments:This order discontinued per [employer]. VYTONE, 1-1% (External Cream) Cream bid for 0 days Quantity: 1 {Cream} Refills: 3 Ordered:13-Jun-2009 Archie WOLFN, Jessica L Start : 13-Jun-2009 End : [...] 09-Mar-2014 Acute renal failure (N17.9, 584.9) Comments: 9-12 when in hospital and will get report [...] Comments: See Note; NOTES: [facility] of [address] [place] [address] OFFICE VISIT Date of Service: 05/25/18 MR#: [id number] Acct: [id number] Name: MANDY MONTERO Rickey Rep #: [id number] : 1990 Provider: Lawrence Weiner MD Age/Sex: 28/F [place] [facility] Status: Signed Assessment AND Plan Problems 1. [...] other complications are noted. No change in patilatrell kelly's aerosol regimen. Intake Vital Signs05/25/18 Height 4 [...] .COMPLEX #144 ml 05/25/18 [Rx Confirmed 05/25/18] [facility] Medical History Pneumonia (Re solved) Cerebral palsy [...] Department Summary Result: Comments: See Note; NOTES: [facility] Medical Records Department [address] [place] [address] Emergency Department Summary 01/24/18 1645 MR#: [id number] Acct: [id number] Name: MIGUELMANDY Rickey Rep #: [id number] : 1990 27 From: Stephan Hughes MD [...] Discharged to home Impression: 1. Cellulitis left [facility] 2. Dysuria of unknown etiology 3. History of MRDD 4. History of Propulsid 5. History of chronic respiratory failure on ventilator This note was generated with SproutBox dictation software. It m ay contain incorrect [...] Instructions: Mandy prescription was [facility] to [place] [facility] What to do if you have Problems For any increased pain, shortness of breath, bleeding, nausea or vomiting, chest pain, or any unexpected problems, contact your Primary Care Provider. Call [facility] ([phone]) or report to the closest Emergency Room. Call 911 if necessary. 01/24/18 1749 <Electronically signed by Stephan Hughes MD> Date Stephan Hughes MD Cosigner Signature (If Indicated): Date CC: Sandra Bermudez DO 10-Dec-2017 Pulmonary Visit Report Result: Comments: See Note; NOTES: [facility] of [address] [place] [address] OFFICE VISIT Date of Service: 12/09/17 MR#: [id number] Acct: [id number] Name: MANDY MONTERO Rep #: [id number] : 1990 Provider: Lawrence Weiner MD Age/Sex: 27/F Location[place] [facility] Status: Signed Assessment AND Plan 1. Chronic [...] PO Q4H PRN #473 ml 12/09/17 [Rx] [facility] Medical History Pneumonia (Resolved) Cerebral palsy (Chronic) [...] Comments: See Note; NOTES: [facility] [place] [address] [place] [address] OFFICE VISIT Date of Service: 09/02/17 MR#: [id number] Acct: [id number] Name: MANDY MONTERO Rep #: [id number] : 1990 Provider: Lawrence Weiner MD Age/Sex: 27/F Location: [facility] Status: Signed Assessment AND Plan 1. Spastic [...] mg (10 mL) PO QDAY PRN allergy [id number] .2 Ok to give through PEG Follow [...] a cot with her mother and healthcare molding line assistant. Family reports the patient has had [...] Department Summary Result: Comments: See Note; NOTES: [facility] Medical Records Department [address] [place] [address] Emergency Department Summary MR#: [id number] Acct: [id number] Name: MANDY MONTERO Rickey Rep #: [id number] : 1990 26 From: Flip Jessica MD PCP: Sandra Bermduez DO Status: [facility] ER DATE OF SERVICE: 03/06/2017 CHIEF [...] . Flip Jessica MD T: NTS JOB: [id number] 03/10/1706 <Electronically signed by Flip Jessica MD> Date Flip Jessica MD Cosigner Signat ure (If Indicated): Date CC: Sandra Bermudez DO Date Dictated: 03/06/171722 Date Transcribed: 03/06/171722 Card Cleaner: Signed 06-Mar-2017 Discharge Instruction Result: Comments: See Note; NOTES: [facility] Medical Records Department [address] [place] [address] Discharge Instruction 03/06/171719 MR#: [id number] Acct: [id number] Name: ROMELIA MONTERO Rep #: [id number] : 1990 26 From: Flip Jessica MD [...] your Primary Care Provider. Call [facility] Registry ([phone]) or report to the closest Emergency Room. Call 911 if necessary. 03/06/17 1720 <Electronically signed by Flip Jessica MD> Date Flip Jessica MD Cosigner Signature (If Indicated): Date CC: Sandra Bermudez DO 06-Mar-2017 Chest 1 View Result: Comments: See Note; NOTES: [facility] Imaging Services [address] [place] [address] Verdana 4d Chest 1 View MR#: [id number] Acct: [id number] Name: MANDY MONTERO Rep #: [id number] : 1990 F 26 From: Merritt Bolton MD PCP: Sandra Bermudez DO Status: REG ER Study: Chest 1 View Date of Exam: 03/06/17 Exam# [id number] Ordering Dr: Flip Jessica MD STUDY: X-RAY [...] CC: Flip Jessica MD; Sandra Bermudez DO Card Cleaner: Signed 06-Mar-2017 Thoracic Spine 3 Views Result: Comments: See Note; NOTES: [facility] Imaging Services [address] [place] [address] Verdana 4d Thoracic Spine 3 Views MR#: [id number] Acct: [id number] Name: MANDY MONTERO Rep # : [id number] : 1990 F 26 From: Merritt Bolton MD PCP: Sandra Bermudez DO Status: REG ER Study: Thoracic Spine 3 Views Date of Exam: 03/06/17 Exam# [id number] Ordering Dr: Flip Jessica MD [facility] DY: X-RAY - THORACIC SPINE REASON FOR [...] CC: Flip Jessica MD; Sandra Bermudez DO Card Cleaner: Signed 10-Sep-2016 Chest 1 View (Portable) Result: Comments: See Note; NOTES: [facility] Imaging Services [address] [place] [address] Verda 4d Chest 1 View (Portable) MR#: [id number] Acct: [id number] Name: MANDY MONTERO Rep #: [id number] : 1990 F 26 From: Mandy Chávez MD PCP: Sandra Bermudez DO Status: PRE ER Study: Chest 1 View (Portable) Date of Exam: 09/10/16 Exam# [id number] Ordering Dr: Vinnie Sher MD STUDY: X-RAY [...] MD at 23:49 EST , Service support [phone], CC: Linden Sher MD; Sandra Bermudez DO Card Cleaner: Signed 12-Mar-2016 Emergency Department Summary Result: Comments: See Note; NOTES: [facility] Medical Records Department [address] [place] [address] Emergency Department Summary MR#: [id number] Acct: [id number] Name: MANDY MONTERO Rep #: [id number] : 1990 25 From: Joseph Mcgee MD [...] Baxter Date Dictated: 02/29/16112 Date Transcribed: 02/29/16112 Card Cleaner: Signed 28-Feb-2016 Discharge Instruction Result: Comments: See Note; NOTES: [facility] Medical Records Department [address] [place] [address] Discharge Instruction 02/28/16 1926 MR#: [id number] Acct: [id number] Name: MANDY MONTERO Rep #: [id number] : 1990 25 From: Joseph Mcgee MD [...] problems, contact your doctor. Call Doctors Registry ([phone]) or report to the closest Emergency Room. Call 911 if necessary. [phone] <Electronically signed by Joseph Mcgee MD> Date Joseph Mcgee MD Cosigner Signature (If Indicated): Date ___ CC: Roe Baxter 28-Feb-2016 Abdomen/Pelvis without Cont Result: Comments: See Note; NOTES: [facility] Imaging Services [address] [place] [address] Verdana 4d Abdomen/Pelvis without Cont MR#: [id number] Acct: [id number] Name: MANDY MONTERO Rep #: [id number] : 1990 F 25 From: Seymour Villagomez MD PCP: Roe Baxter Status: REG ER Study: Abdomen/Pelvis without Cont Date of Exam: 02/28/16 Exam# [id number] Ordering Dr: Joseph Patton MD STUDY: CT [...] MD at 18:47 EDT , Service support [phone], CC: Roe Baxter; Joseph Mcgee MD Card Cleaner: Signed 25-Feb-2016 Emergency Department Summary Result: Comments: See Note; NOTES: [facility] Medical Records Department [address] [place] [address] Emergency Department Summary MR#: [id number] Acct: [id number] Name: MANDY MONTERO Rep #: [id number] : 1990 25 From: Tomás Willis MD [...] MD C C: Roe Baxter MD T: NTS JOB: [id number] 02/25/16 1517 <Electronically signed by Tomás Willis MD> Date Tomás Willis MD Cosigner Signature (If Indicated): Date CC: Roe Baxter Date Dictated: 02/23/16 1521 Date Transcribed: 02/23/16 152 Card Cleaner: Signed 23-Feb-2016 Discharge Instruction Result: Comments: See Note; NOTES: [facility] Medical Records Department [address] [place] [address] Discharge Instruction 02/23/16 1514 MR#: [id number] Acct: [id number] Name: MIGUELMANDY A Rep #: [id number] : 1990 25 From: Tomás Willis MD [...] problems, contact your doctor. Call Doctors Registry ([phone]) or report to the closest Emergency Room. Call 911 if necessary. [phone] <Electronically signed by Tomás Willis MD> Date Tomás Willis MD Cosigner Signature (If Indicated): Date CC: Roe Baxter 28-Jan-2016 Chest 1 View (Portable) Result: Comments: See Note; NOTES: [facility] Imaging Services [address] [place] [address] Verdana 4d Chest 1 View (Portable) MR#: [id number] Acct: [id number] Name: MANDY ACUNA Rep #: [id number] : 1990 F 25 From: Abdirahman Awad MD PCP: Linda Houston MD Status: PRE ER Study: Chest 1 View (Portable) Date of Exam: 01/28/16 Exam# [id number] Ordering Dr: Edita Willis MD STUDY: X-RAY [...] MD at 22:53 EDT , Service support [phone], RAD/Chest 1 View (Portable) IMPRESSION: Retrocar diac density in left lower lobe possibly representing atelectasis or infiltrate. Recommend lateral view for further assessment Electronically Signed: Abdirahman Awad MD at 22:53 EDT , Service support [phone], CC: Linda Houston MD; Tomás Willis MD Card Cleaner: Signed Family History Unknown Family Member Name Dates Details She was adopted at 5 months Status: Active Social History Name Dates Details Current Work/Study Status Comments: Disabled Status: Active Exercise History Comments: Inactive Status: Active Living Situation Comments: [facility] child lives with mom Status: Active No Caffeine Use Status: Active No Drug Use Status: Active Non Drinker/No Alcohol Use Status: Active Non Smoker/No Tobacco Use Status: Active Vital Signs Date Test Result Details 44-Wge-254187:15 Pulse 104 /min Comments: Pattern: Regular O2 SAT 99 % Comments: Room air BP Systolic 118 mm[Hg] Comments: Patient Position: Sitting; Cuff Location: Left Arm; Cuff Size: Standard BP Diastolic 78 mm[Hg] Comments: Patient Position: Sitting; Cuff Location: Left Arm; Cuff Size: Standard Weight 100 lb Height 55.5 in Body Mass Index Calculated 22.83 kg/m2 Body Surface Area Calculated 1.31 m2 :08 Pulse 86 /min Comments: Pattern: Regular O2 SAT 98 % Comments: Room air BP Systolic 118 mm[Hg] Comments: Patient Position: Sitting; Cuff Location: Left Arm; Cuff Size: Standard BP Diastolic 76 mm[Hg] Comments: Patient Position: Sitting; Cuff Location: Left Arm; Cuff Size: Standard Weight 100 lb Height 55.5 in Body Mass Index Calculated 22.83 kg/m2 Body Surface Area Calculated 1.31 m2 29-Vuo-178763:02 Pulse 94 /min Comments: Pattern: Regular Respiration [...] lb :43 Comments: [facility] Temperature 97 f Comments: Method: Temporal Pulse [...] Arm; Cuff Size: Standard Weight 87 lb 1-Ska-778587:56 Comments: unable to obtain height weight reported [...] Arm; Cuff Size: Standard Weight 87 lb 0-Ufp-659497:54 Pulse 86 /min Comments: Pattern: Regular Respiration Rate 16 /min Comments: Pattern: Unlabored BP Systolic 140 mm[Hg] Comments: Patient Position: Sitting; Cuff Location: Left Arm; Cuff Size: Standard BP Diastolic 110 mm[Hg] Comments: Patient Position: Sitting; Cuff Location: Left Arm; Cuff Size: Standard Weight 80 lb Height 0 in Head Circumference 0.00 cm Results Date Description Value Details 93-Yew-126748:37 TSH (51929) Comments: PATIENT NOT FASTINGPERFORMED BY: INNF[facility]US [facility] Gogywg2384 [facility] [id number] BY: [address] [id number] TSH 1.030 {uIU/mL} (Normal) Range: 0.450-4.500 05-Mvx-400067:37 T4, FREE (THYROXINE) Comments: PATIENT NOT FASTINGPERFORMED BY: IN[facility] Glpilj9579 [facility] [id number] BY: [facility]Co[address] [id number] (71973) T4,Free(Direct) 0.84 ng/dL (Normal) Range: 0.82-1.77 03-Rvj-094951:37 T3, FREE (TRIDOTHYRONINE) Comments: PATIENT NOT FASTINGPERFORMED BY: [facility]6370 [facility] [id number] BY: [address] [id number] (75042) Triiodothyronine (T3), Free 2.6 pg/mL (Normal) Range: 2.0-4.4 87-Vsu-582739:37 CALCIFIDIOL (76335) VIT D Comments: PATIENT NOT FASTINGPERFORMED BY: [facility] Networks IncMymichigan Medical Center Clare6370 [facility] [id number] BY: [employer] [id number] 25 Vitamin D, 25-Hydroxy 42.6 ng/mL (Normal) Range: 30.0-100.0 Comments: Vitamin D deficiency has been defined by the [place] ofMedicine and an Endocrine Society practice guideline as alevel of serum 25-OH vitamin D less than 20 ng/mL (1,2).The Endocrine Society went on to further define vitamin Dinsufficiency as a level between 21 and 29 ng/mL (2).1. IOM ([place] of Medicine). 2010. Dietary reference intakes for calcium and D. [place]: The National Academies Press.2. Gabbi MF, Singh MCKEON, Pollo JOSEPH, et al. Evaluation, treatment, and prevention of vitamin D deficiency: an Endocrine Society clinical practice guideline. JCEM. 2010; 96(7):1911-30. 51-Fjj-801176:37 TRILEPTAL-OXCARBAZEPINE 813388 Comments: send results to dr sandy storm; PATIENT NOT FASTINGPERFORMED BY: LabGridIron SystemsVirtua MarltonFqgbwb0723 [facility] [id number] BY: [address] [id number] ([address]) Oxcarbazepine 49 ug/mL (Abnormal) Range: 10-35 Comments: Detection Limit = 1 76-Rso-064254:37 CBC with auto diff Comments: send results to dr delgado too; PATIENT NOT FASTINGPERFORMED BY: [employer] Mjkcfh5977 [facility] [id number] BY: [facility] [id number] (87625) Immature Grans (Abs) 0.0 {x10E3/uL} (Normal) Range: [...] 3.77-5.28 WBC 6.3 {x10E3/uL} (Normal) Range: 3.4-10.8 09-Ptc-461375:37 METABOLIC PANEL, Comments: send results to dr delgado too; PATIENT NOT FASTINGPERFORMED BY: [facility] Ajuimq5195 [facility] [id number] BY: BiTMICRO Networks IncJill [place] 586057 [facility] [id number] COMPREHENSIVE (97782) ALT (SGPT) 38 [iU]/L (Abnormal) Range: 0-32 [...] 6-20 Glucose 237 mg/dL (Abnormal) Range: 65-99 64-Xdq-047333:37 HGB A1C (84944) Comments: PATIENT NOT FASTINGPERFORMED BY: [employer] [facility] Wrvteo8297 [facility] [id number] BY: [employer] [id number] Hemoglobin A1c 6.3 % (Abnormal) Range: 4.8-5.6 Comments: . Prediabetes: 5.7 - 6.4 Diabetes: >6.4 Glycemic control for adults with diabetes: <7.0 17-Fiy-401553:00 Urinalysis, Complete Comments: How was Urine Obtained? [facility] [address]vko[address] [place], [place], [id number] MUCUS, URINE 0 SEEN {/hpf} (Normal) BACTERIA [...] (Abnormal) CLARITY Clear (Normal) COLOR Yellow (Normal) 09-Ylz-587255:50 Basic Metabolic Profile (BMP) Comments: [facility] [address] [place], [place], [address] GAP 8 (Normal) Range: 5-15 CO2 28.0 [...] A.D.A. criteria.Please note revised GLUCOSE reference range midilikzn70/02/2018. 51-Eni-542951:50 CBC W/Diff, Automated Comments: [facility] [address] [place], [place], [address] Absolute Lymph 1.52 {X10_3/ul} (Normal) Range: 0.83-4.51 [...] 4.2-5.4 WBC 6.0 K/mm3 (Normal) Range: 4.4-11.0 10-Mrb-68389:00 Lactic Acid Comments: Yes/No query for Sepsis Lactate Rule [facility] [address] [place], [address] LACTIC ACID 2.0 mmol/L (Normal) Range: 0.4-2.0 Comments: Critical Result(s) Called at: 18:33:30 01/24/2018 by:Yohana saenz Brent 01-Ddb-683782:39 TSH (63804) Comments: PATIENT NOT FASTINGPERFORMED BY: [facility] Knoerk8705 [facility] [id number] BY: [facility] [id number] TSH 1.150 {uIU/mL} (Normal) Range: 0.450-4.500 08-Fej-735560:39 METABOLIC PANEL, Comments: PATIENT NOT FASTINGPERFORMED BY: [facility] Osweoi3190 [facility] [id number] BY: [facility] [id number] COMPREHENSIVE (53958) ALT (SGPT) 18 [iU]/L (Normal) Range: 0-32 [...] Glucose, Serum 138 mg/dL (Abnormal) Range: 65-99 96-Bea-202742:39 CBC W/AUTO DIFF WBC Comments: PATIENT NOT FASTINGPERFORMED BY: CB [facility] Saaxst2273 [facility] [id number] BY: BN [facility] Puqiszjeqv2859 [facility] [id number] (37255) Immature Grans (Abs) 0.0 {x10E3/uL} (Normal) Range: [...] 6.6 {x10E3/uL} (Normal) Range: 3.4-10.8 :39 TRILEPTAL-OXCARBAZEPINE 097513 Comments: PATIENT NOT FASTINGPERFORMED BY: INNFOCUS [facility] Hdmaxh6581 [facility] [id number] BY: Lab[address] [id number] (71622) Oxcarbazepine 28 ug/mL (Normal) Range: 10-35 Comments: Detection Limit = 1 :39 CALCIFIDIOL (97339) VIT D Comments: PATIENT NOT FASTINGPERFORMED BY: CB [facility] Oiwtug4210 [facility] [id number] BY: LabGridIron Systems[address] [id number] 25 Vitamin D, 25-Hydroxy 56.3 ng/mL (Normal) Range: 30.0-100.0 Comments: Vitamin D deficiency has been defined by the [place] ofUniversity Hospitals Ahuja Medical Centercine and an Endocrine Society practice guideline as alevel of serum 25-OH vitamin D less than 20 ng/mL (1,2).The Endocrine Society went on to further define vitamin Dinsufficiency as a level between 21 and 29 ng/mL (2).1. IOM ([place] of Medicine). 2010. Dietary reference intakes for calcium and D. [place]: The National Academies Press.2. Gabbi MF, Singh [place], Pollo JOSEPH, et al. Evaluation, treatment, and prevention of vitamin D deficiency: an Endocrine Society clinical practice guideline. JCEM. 2010; 96(7):1911-30. :39 HGB A1C (37734) Comments: PATIENT NOT FASTINGPERFORMED BY: CB [facility] Obwkyk4551 [facility] [id number] BY: Lab[address] [id number] Hemoglobin A1c 5.7 % (Abnormal) Range: 4.8-5.6 Comments: . Pre-diabetes: 5.7 - 6.4 Diabetes: >6.4 Glycemic control for adults with diabetes: <7.0 20-Apr-20174:11 THROAT CULTURE (79241) Comments: PATIENT NOT FASTINGPERFORMED BY: HARRIET [facility] Ldfkuq8785 [facility] [place] [id number] Information: SRC: Result 1 RRF (Normal) Comments: Routine respiratory jasper Upper Respiratory Culture Final report (Normal) 56-Bbo-080645:35 CBC W/Diff, Automated Comments: [facility] [address] [place], [place], [id number] Absolute Lymph 1.23 {X10_3/ul} (Normal) Range: 0.83-4.51 [...] 4.2-5.4 WBC 4.9 K/mm3 (Normal) Range: 4.4-11.0 76-Ysb-735747:35 CRP Comments: [facility] [address] [place], [place], [address] C-REACTIVE PROT < 2.90 mg/L (Normal) Range: 0.0-3.0 Comments: C-Reactive Protein (CRP) provides useful information for thediagnosis, therapy and monitoring of inflammatory processesand associated diseases. For the evaluation of Relative Riskfor Cardiovascular Dise ase, a High Sensitivity CRP (HSCRP)should be ordered. 7-Ifo-768044:15 Culture, Nose Comments: [facility] [address] [place], [place], [address] CUN See Note (Normal) Comments: Comments: THICK [...] $ <=20 S(NF) indicates non-formulary drug at [facility]. Ap proval by Infectious Disease Specialist required before non-formulary drugs may be ordered and/or dispensed. Pseudomonas aeroginosa: REACTION Cefepime $ <=1 S Ceftazidime *NF 2 S Ciprofloxacin $ 2 I Gentamicin $ <=1 S Imipenem *NF 1 S Levofloxacin $ 4 I Piperacillin/Tazobactam $$ 8 S Tobramycin $ <=1 S(NF) rocky cates non-formulary drug at [facility]. Approval by Infectious Disease Specialist required before non-formulary drugs may be ordered and/or dispensed. 70-Pum-463737:34 LIPID PANEL (89893) Comments: PATIENT NOT FASTINGPERFORMED BY: J. HilburnVirtua MarltonRutmzo6762 [facility] [id number] BY: [employer] [id number] LDL/HDL Ratio 1.5 {ratio_units} (Normal) Range: 0.0-3.2 Comments: LDL/HDL Ratio Men Women 1/2 Avg.Risk 1.0 1.5 Av g.Risk 3.6 3.2 2X Avg.Risk 6.2 5.0 3X Avg.Risk 8.0 6.1 LDL Cholesterol Calc 76 mg/dL (Normal) Range: 0-99 VLDL Cholesterol Dirk 17 mg/dL (Normal) Range: 5-40 HDL Cholesterol 50 mg/dL (Normal) Triglycerides 84 mg/dL (Normal) Range: 0-149 Cholesterol, Total 143 mg/dL (Normal) Range: 100-199 63-Ofe-437753:34 METABOLIC PANEL, Comments: PATIENT NOT FASTINGPERFORMED BY: [employer]6370 [facility] [id number] BY: [employer]88 [address] [id number] COMPREHENSIVE (51950) ALT (SGPT) 20 [iU]/L (Normal) Range: 0-32 [...] Glucose, Serum 137 mg/dL (Abnormal) Range: 65-99 38-Fag-753041:34 CBC with auto diff Comments: PATIENT NOT FASTINGPERFORMED BY: CB [facility] Dbzhma8185 [facility] [id number] BY: BN [facility] Mbezngjvxb4083 [facility] [id number] (27557) Immature Grans (Abs) 0.0 {x10E3/uL} (Normal) Range: [...] 3.77-5.28 WBC 4.5 {x10E3/uL} (Normal) Range: 3.4-10.8 77-Nne-045984:34 TRILEPTAL-OXCARBAZEPINE [id number] Comments: PATIENT NOT FASTINGPERFORMED BY: J. Hilburn Ehbubc6334 [facility] [id number] BY: [employer] [id number] (21103) Oxcarbazepine 23 ug/mL (Normal) Range: 10-35 Comments: Detection Limit = 1 :34 HGB A1C (71808) Comments: PATIENT NOT FASTINGPERFORMED BY: [employer] Yeuxbn4565 [facility] [id number] BY: [employer] [id number] Hemoglobin A1c 6.1 % (Abnormal) Range: 4.8-5.6 Comments: . Pre-diabetes: 5.7 - 6.4 Diabetes: >6.4 Glycemic control for adults with diabetes: <7.0 :34 CALCIFIDIOL (41376) VIT D Comments: PATIENT NOT FASTINGPERFORMED BY: [employer] Cygaqa1995 [facility] [id number] BY: [employer] [id number] 25 Vitamin D, 25-Hydroxy 49.1 ng/mL (Normal) Range: 30.0-100.0 Comments: Vitamin D deficiency has been defined by the [place] of[place]icine and an Endocrine Society practice guideline as alevel of serum 25-OH vitamin D less than 20 ng/mL (1,2).The Endocrine Society went on to further define vitamin Dinsufficiency as a level between 21 and 29 ng/mL (2).1. IOM ([place] of Medicine). 2010. Dietary reference intakes for calcium and D. [place]: The National Academies Press.2. Gabbi CHUN, Singh MCKEON, Pollo JOSEPH, et al. Evaluation, treatment, and prevention of vitamin D deficiency: an Endocrine Society clinical practice guideline. JCEM. 2010; 96(7):1911-30. 39-Yed-087417:15 Culture, Throat Comments: [facility] [address] [place], [address] CUT See Note (Normal) Comments: Culture, ThroatMixed [...] $ <=20 S(NF) indicates non-formulary drug at [facility]. Approval by Infec tious Disease Specialist required before non-formulary drugs may be ordered and/or dispensed. 88-Ulq-68566:30 Culture, Wound Comments: [facility] [address] [place], [address] CUW See Note (Normal) Comments: Comments: COLLECTED FROM TRACHEA STOMA/DX THICK SPUTUMGram StainGram Stain No organisms seen Wound CultureNo Haemophilus, Streptococcus pneumoniae, beta-hemolytic Streptococcus or Staphylococcus aureu s isolated. Copy of report sent to Infection Control Printer [id number] 12/09/16 7946 DCANNON. ORGANISM 1: Serratia marcescensAmount Growth 1+ [...] $ <=20 S(NF) indicates non-formulary drug at [facility]. Approval by Infectious Disease Specialist required before non-formulary drugs may be ordered and/or dispensed. Pseudomonas aeroginosa: REACTION Cefepime $ <=1 S Ceftazidime *NF <=1 S Ciprofloxacin $ 0.5 S Gentamicin $ <=1 S Imipenem *NF 1 S Levofloxacin $ 1 S Piperacillin/Tazobactam $$ 8 S Tobramycin $ <=1 S(NF) indicates non-formulary drug at [facility]. Approval b y Infectious Disease Specialist required before non-formulary drugs may be ordered and/or dispensed. 58-Rzg-970050:37 Base Excess ISTAT Comments: [place] [address] [place] [address] BE ISTAT 6 mmol/L (Abnormal) 51-Vib-668485:37 Bicarbonate ISTAT Comments: [place] [address] [place] [address] HCO3 ISTAT 30 mmol/L (Abnormal) Range: 22-26 Comments: Site = R BrachialAllens Test = NAMode = A-CDevice = VentFIO2 = 40Results To = ED MDTime Given = 2350MV = 4.5VT = 250RR = 21PEEP = 7 44-Kfq-387336:37 Blood Gas Specimen Type Comments: [place] [address] [place] [address] BLD GAS TYPE ART (Normal) 71-Fcd-343783:37 pCO2 - ISTAT 40.0 {mmHg} (Normal) Comments: [place] [address] [place] [address] Range: 35-45 28-Dgd-488101:37 pH - I-STAT 7.48 (Abnormal) Comments: [facility] [place] [address] [place] [address] Range: 7.35-7.45 63-Tuz-284853:37 PO2 I-STAT 65 {mmHG} (Abnormal) Comments: [place] [address] [place] [address] Range: 75-100 15-Ykd-739013:37 SO2 ISTAT 94 % (Abnormal) Comments: [place] [address] [place] [address] Range: 95-99 86-Szc-787726:37 Total Carbon Dioxide ISTAT Comments: [place] [address] [place] [address] TOTAL CO2 ISTAT 31 mmol/L (Normal) 48-Ycs-442346:55 Basic Metabolic Profile (BMP) Comments: [place] [address] [place], [address] GAP 5 (Normal) Range: 5-15 CO2 [...] Range: 70-110 :55 CBC W/Diff, Automated Comments: [facility] [address] [place], [place], [address] Absolute Lymph 1.51 {X10_3/ul} (Normal) Range: 0.83-4.51 [...] Anaerobic and Aerobic Comments: PERFORMED BY: HARRIET [facility] Btrqmd8717 [place]ckenzie [place] [id number] Information: buttock SRC:WO Culture Antimicrobial MIHEAD (Normal) [...] 72 hours. Anaerobic Culture Final report (Normal) 1-Cbg-049877:39 CBC With Differential/Platelet Comments: PERFORMED BY: CB [facility] Dprtmj8473 [facility] [id number] BY: [facility] [address] [id number] Immature Grans (Abs) 0.0 {x10E3/uL} (Normal) Range: [...] 3.77-5.28 WBC 5.1 {x10E3/uL} (Normal) Range: 3.4-10.8 3-Suk-808579:39 Comp. Metabolic Panel Comments: PERFORMED BY: CB [facility] Swmsju7681 [facility] [id number] BY: BN [facility] [address] [id number] (14) ALT (SGPT) 27 [iU]/L (Normal) Range: [...] 65-99 :39 Oxcarbazepine (Trileptal),S Comments: PERFORMED BY: [employer] [facility] [id number] BY: [address] [id number] Oxcarbazepine 24 ug/mL (Normal) Range: 10-35 Comments: Detection Limit = 1 :39 TSH 1.640 {uIU/mL} Comments: PERFORMED BY: [facility] [id number] BY: [address] [id number] (Normal) Range: 0.450-4.500 :39 Vitamin B12 and Folate Comments: PERFORMED BY: [employer] [facility] [id number] BY: [address] [id number] Folate (Folic Acid), 8.0 ng/mL (Normal) Comments: A serum folate concentration of less than 3.1 ng/mL isconsidered to represent clinical deficiency. Serum Vitamin B12 1048 pg/mL Range: 211-946 (Abnormal) : Vitamin D, 40.7 ng/mL (Normal) Comments: PERFORMED BY: [employer] [facility] [id number] BY: [facility]1447 [facility] [id number] 39 25-Hydroxy Range: 30.0-100.0 Comments: Vitamin D deficiency has been defined by the [place] of[place]icine and an Endocrine Society practice guideline as alevel of serum 25-OH vitamin D less than 20 ng/mL (1,2).The Endocrine Society went on to further define vitamin Dinsufficiency as a level between 21 and 29 ng/mL (2).1. IOM ([place] of Medicine). 2010. Dietary reference intakes for calcium and D. [place]: The National Academies Press.2. Gabbi MF, Singh MCKEON, Pollo JOSEPH, et al. Evaluation, treatment, and prevention of vitamin D deficiency: an Endocrine Society clinical practice guideline. JCEM. 2010; 96(7):1911-30. 90-Hxh-524849:00 Urinalysis, Complete Comments: Order Date: 02/28/16How was Urine Obtained? [facility] [address]iehm[address] [place], [place], [id number] MUCUS, URINE RARE {/hpf} (Normal) BACTERIA 0 [...] CLARITY Sl. Cloudy (Normal) COLOR Yellow (Normal) 28-Fqs-549407:00 Basic Metabolic Profile (BMP) Comments: [facility] [address] [place], [place], [address] GAP 8 (Normal) Range: 5-15 CO2 26.0 [...] 7-18 GLU 84 mg/dL (Normal) Range: 70-110 48-Ewj-540607:00 CBC W/Diff, Automated Comments: [facility] [address] [place], [place], [address] Absolute Lymph 1.11 {X10_3/ul} (Normal) Range: 0.83-4.51 [...] 4.2-5.4 WBC 5.5 K/mm3 (Normal) Range: 4.4-11.0 16-Hjx-853801:00 Lactic Acid Comments: [facility] Ph[address] [place], [place], [address] LACTIC ACID 1.6 mmol/L (Normal) Range: 0.4-2.0 59-Way-830354:00 Lipase Comments: [facility] J[address]mi[address] [place], [address] LIPASE 177 U/L (Normal) Range: 73-393 28-Hnv-431981:00 Liver Profile Comments: [facility] [address]ur[address] [place], [place], [address] D BILI 0.08 mg/dL (Normal) Range: 0.00-0.30 T BILI 0.20 mg/dL (Normal) Range: 0.20-1.00 ALT 22 U/L (Normal) Range: 12-78 ALK P 120 U/L (Normal) Range: 50-136 AST 29 U/L (Normal) Range: 15-37 Comments: Moderate Hemolysis, Result may be falsely increased. GLOB 3.6 g/dL (Abnormal) Range: 2.3-3.5 ALB 3.8 g/dL (Normal) Range: 3.4-5.0 T PROT 7.4 g/dL (Normal) Range: 6.4-8.2 19-Feb-20167:30 CDIFF (Molecular) Comments: [facility] [address] [place], [place], [address] CDIFF See Note (Normal) Comments: Cdiff-MolecularC. Diff DNA Negative- No toxigenic C. Diff DNA Detected :30 ENTERIC PATHOGEN PANEL STOOL Comments: [address] [place], [address] EP PANEL See Note (Normal) [...] DetectedRotavirus Not Detected :30 Stool Lactoferrin/WBC Comments: [address] [place], [place], [address] WBCST See Note (Normal) Comments: Stool Lacto/WBCFecal WBC Lactoferrin Negative: No Fecal WBC Lactoferrin present :30 Stool Occult Blood iFOB Comments: [address] [place], [address] STOB See Note (Normal) Comments: STOB iFOBOccult Blood Negative 92-Suw-593882:35 Urinalysis, Complete Comments: How was Urine Obtained? [facility] Xvgbioluux69[address] [place], [address] MUCUS, URINE 0 SEEN {/hpf} [...] (Normal) CLARITY Cloudy (Normal) COLOR Yellow (Normal) 09-Phb-352592:00 CBC W/Diff, Automated Comments: [facility] [address] [place], [address] SMEAR COMMENT SCANNED (Normal) Comments: LYMPHOPENIA NOTED [...] 4.2-5.4 WBC 6.8 K/mm3 (Normal) Range: 4.4-11.0 17-Hxq-931375:00 Comprehensive Metabolic Profil Comments: [facility] [address] [place], [place], [address] GAP 9 (Normal) Range: 5-15 CO2 29.0 [...] 7-18 GLU 84 mg/dL (Normal) Range: 70-110 59-Kie-850797:00 Lactic Acid Comments: [facility] [address] [place], [place], [address] LACTIC ACID 2.6 mmol/L (Abnormal) Range: 0.4-2.0 30-Qqq-059184:00 Partial Thromboplast Time Comments: [facility] [address] [place], [address] PTT 26.7 s (Normal) Range: 24.1-36.2 96-Dmq-186702:00 Prothrombin Time w/INR Comments: [facility] [address] [place], [address] INR 1.0 (Normal) PROTIME 13.1 s (Normal) Range: 11.7-14.9 20-Jan-20161:25 PREALBUMIN (96124) Comments: PERFORMED BY: [employer] Mdewbg0443 [facility] [id number] Prealbumin 27 mg/dL (Normal) Range: 9-31 Comments: [...] - 36 >70 years 9 - 32 82-Mwe-921743:16 Clostridium difficile Toxin Comments: PERFORMED BY: [employer] [facility] Pjqxnd3264 [facility] [id number] A+B, EIA (27773) C difficile Toxins A+B, EIA Negative (Normal) 39-Ezs-646181:00 Culture, Urine Comments: [facility] [address] [place], [id number] CUUR See Note (Normal) Comments: Urine CultureCulture exhibits no growth. 25-Ptr-227537:00 Urinalysis, Complete Comments: How was Urine Obtained? [facility] [address]ny[address] [place], [id number] MUCUS, URINE 0 SEEN {/hpf} (Normal) BACTERIA [...] CLARITY Sl. Cloudy (Normal) COLOR Yellow (Normal) 03-Tsr-038491:30 Culture, Urine Comments: [facility] [address] [place], [address] CUUR See Note (Normal) Comments: Urine CultureORGANISM 1: Enterococcus faecalisColony Count >100,000 Enterococcus faecalis: REACTION Ampicillin $ <=2 S Benzylpenicillin NF 2 S Ciprofloxacin $ <=0.5 S Gentamicin SYN-S S Levofloxacin $ 1 S Linezolid $$$$ 2 S Nitrofurantoin $ <=16 S Streptomycin $ SYN- S S Tetracycline NF >=16 R Vancomycin $ 1 S(NF) indicates non-formulary drug at [facility]. Approval by Infectious Disease Specialist required before non-formulary drugs may be ordered and/or dispensed. * CLSI guidelines does not recommend testing of cephalosporins. This interpretation is deduced from Beta-lactam/penicillin results. 28-Mng-164084:30 Urinalysis, Complete Comments: How was Urine Obtained? Urine, [facility]University [facility] [address] [place], [place], [address] MUCUS, URINE 0 SEEN {/hpf} (Normal) BACTERIA [...] CLARITY Sl. Cloudy (Normal) COLOR Yellow (Normal) 45-Bkf-210115:00 ENTERIC PATHOGEN PANEL STOOL Comments: [facility] [address] [place], [place], [address] EP PANEL See Note (Normal) Comments: RESULTS CALLED TO DR. HOUSTON 09/10/15 @1952 BY THADDEUS.EP PANEL STOOLNot detected for Campylobacter group, Salmonella species, Shigella species, Vibrio Group, Yersinia enterocolitica, EHEC (Shiga Toxin 1, Shiga Toxin 2), Norovirus Gl/Gll, and Rotavirus A. Other common stool pathogens are not detected on this panel include: Aeromonas/Plesiomonas or parasites. Order testing for these organisms separ[facility] if suspected. This is an amplified DNA test which makes it both specific and sensitive. CAMPYLOBACTER Not DetectedSalmonella Not DetectedShigella sp. Not DetectedShiga Toxin Not DetectedYersinia Not DetectedVIBRIO Not DetectedNorovirus Not DetectedRotavirus Not Detected 53-Ftv-960094:00 Stool Lactoferrin/WBC Comments: [facility] [address] [place], [place], [phone] WBCST See Note (Normal) Comments: RESULTS CALLED TO DR. HOUSTON 09/10/15 @1952 BY THADDEUS.Stool Lacto/WBCFecal WBC Lactoferrin Negative: No Fecal WBC Lactoferrin present 47-Dlp-584357:00 Stool Occult Blood iFOB Comments: [facility] [address] [place], [address] STOB See Note (Normal) Comments: RESULTS CALLED TO DR. HOUSTON 09/10/15 @1952 BY THADDEUS.STOB iFOBOccult Blood Negative 20-Jan-20161:29 CBC with auto diff Comments: PERFORMED BY: [facility] Yvrwep0455 [facility] [id number] BY: [facility] [id number] (13027) Immature Grans (Abs) 0.0 {x10E3/uL} (Normal) Range: [...] 3.4-10.8 :29 METABOLIC PANEL, Comments: PERFORMED BY: [employer] [facility] Qumrgc3701 [facility] [id number] BY: [employer] [id number] COMPREHENSIVE (26533) ALT (SGPT) 17 [iU]/L (Normal) Range: 0-32 [...] 73 mg/dL (Normal) Range: 65-99 20-Jan-20161:29 CALCIFIDIOL (54820) VIT D Comments: PERFORMED BY: CB [facility] Jhpkwk7709 [facility] [id number] BY: BN [facility] Vzchjztlpf7066 [facility] [id number] 25 Vitamin D, 25-Hydroxy 39.5 ng/mL (Normal) Range: 30.0-100.0 Comments: Vitamin D deficiency has been defined by the [place] of[place]icine and an Endocrine Society practice guideline as alevel of serum 25-OH vitamin D less than 20 ng/mL (1,2).The Endocrine Society went on to further define vitamin Dinsufficiency as a level between 21 and 29 ng/mL (2).1. IOM ([place] of Medicine). 2010. Dietary reference intakes for calcium and D. [place]: The National Academies Press.2. Gabbi MF, Singh MCKEON, Pollo JOSEPH, et al. Evaluation, treatment, and prevention of vitamin D deficiency: an Endocrine Society clinical practice guideline. JCEM. 2010; 96(7):1911-30. :29 TRILEPTAL-OXCARBAZEPINE [id number] Comments: PERFORMED BY: CB [facility] Azenmt8637 [facility] [id number] BY: BN [facility] Mybggefetq8414 [facility] [id number] (15982) Oxcarbazepine 38 ug/mL (Abnormal) Range: 10-35 Comments: Detection Limit = 1 :30 CBC W/Diff, Automated Comments: [facility] [address] [place], [address] Absolute Lymph 0.90 {X10_3/ul} (Normal) Range: 0.83-4.51 [...] 4.2-5.4 WBC 5.2 K/mm3 (Normal) Range: 4.4-11.0 17-Qbv-463535:30 Comprehensive Metabolic Profil Comments: [facility] [address] [place], [place], [address] GAP 8 (Normal) Range: 5-15 CO2 26.0 [...] 200 mg/dLsuggests DIABETES MELLITUS per A.D.A. criteria. 12-Osh-239702:30 Lipid Profile Comments: [facility] [address] [place], [place], [address] VLDL 38 mg/dL (Normal) Range: 5-40 LDL [...] 200-240 mg/dL Borderline >240 mg/dL High Risk 15-Apr-100071:30 Prealbumin Comments: [facility] [address] [place], [place], [address] PREALBUMIN 26.0 mg/dL (Normal) Range: 20.0-40.0 67-Vqt-537673:30 Thyroid Stim Hormone (TSH) Comments: [facility] [address] [place], [address] TSH 1.02 {uIU/mL} (Normal) Range: 0.358-3.74 93-Gaa-568154:30 Trileptal-Oxcarbazepine Comments: [facility] (refer to report for specific site)refer to report for address and phone number TRILEPT [id number] 38 ug/mL (Abnormal) Range: 10-35 Comments: Detection Limit = 1Performed at: [facility] [id number] Director: Reij Gibson MD, Phone: [phone] 89-Iqv-274641:30 Vitamin D,25 Hydroxy Comments: [facility] [address] [place], [place], [address] Vitamin D 25-OH 38.4 ng/mL (Normal) Comments: Vitamin D 25(OH) Status Range Deficiency <20 ng/mL (50nmol/L) Insuffciency 20 - 30 ng/mL (50 - 75 nmol/L) Sufficiency 30 - 100 ng/mL (75 - 250 nmol/L) Toxicity >100 ng/mL (>250 nmol/L) 6-Zfg-290772:45 CBC-Complete Blood Cnt No Diff Comments: Test performed at:[facility] [address] [place] [address] MPV 10.5 fL (Normal) Range: [...] 4.2-5.4 WBC 6.3 K/mm3 (Normal) Range: 4.4-11.0 9-Thz-310331:45 Comprehensive Metabolic Profil Comments: Is Patient Taking Vitamins or Folic Acid Supplements? NTest performed at:[facility] Frpvigluso[address] [place] [address] GAP 7 (Normal) Range: 5-15 [...] <126 mg/dLsuggests IMPAIRED HOMEOSTASIS per A.D.A. criteria. 3-Fbr-149092:45 CRP Comments: Is Patient Taking Vitamins or Folic Acid Supplements? NTest performed at:[facility] [address] [place] [address] C-REACTIVE PROT < 2.90 mg/L (Normal) Range: 0.0-3.0 Comments: C-Reactive Protein (CRP) provides useful information for thediagnosis, therapy and monitoring of inflammatory processesand associated diseases. For the evaluation of Relative Riskfor Cardiovascular Dise ase, a High Sensitivity CRP (HSCRP)should be ordered. :45 Erythrocyte Sed Rate Comments: Test performed at:[facility] [address] [place] [address] SED RATE 13 mm/h (Normal) Range: 0-20 :45 Folates, (Folic Acid) Comments: Is Patient Taking Vitamins or Folic Acid Supplements? NTest performed at:[facility] [address] [place] [address] FOLATES 15.70 ng/mL (Normal) Range: 3.1-17.5 :45 Free T3 Comments: Is Patient Taking Vitamins or Folic Acid Supplements? NTest performed at:[facility] [address] [place] [address] FREE T3 2.4 pg/mL (Normal) Range: 2.18-3.98 3-Kdu-307126:45 Miscellaneous Lab Procedure Comments: Test(s) Ordered: OXCARBAZEPINE, #[id number], RED TOP SERUM/RFTest performed at:[facility] [address] [place] [address] [facility] Comments: Oxcarbazepine (Trileptal), S Oxcarbazepine 35 ug/mL Ref: Detection Limit=1 TESTING PERFOR MED AT [facility] (Normal) rp. ORIGINAL REPORT ON FILE IN LAB CONTAINS ADDITIONAL TEST SITE INFORMATION. TEST :45 Prealbumin Comments: Is Patient Taking Vitamins or Folic Acid Supplements? NTest performed at:[facility] [address] [place] [address] PREALBUMIN 30.9 mg/dL (Normal) Range: 20.0-40.0 :45 ,Serum,hCG Quali. Comments: Test performed at:[facility] [address] [place] [address] HCGSQUAL NEGATIVE {Negative} (Normal) Range: 0-9 Nonpreg HCG Qual triggr < 1 m[iU]/mL (Normal) :45 Prolactin Comments: Is Patient Taking Vitamins or Folic Acid Supplements? NTest performed at:[facility] [address] [place] [address] PROLACTIN 9.5 ng/mL (Normal) Comments: NORMAL REFERENCE RANGES FEMALE NON- 2.2 - 30.3 ng/mL 8.1 - 347.6 ng/mL POST-MENOPAUSAL 0.7 - 3 1.5 ng/mL MALE 2.5 - 17.4 ng/mLNEW TEST METHOD AND REFERENCE RANGES FEBRUARY 01, 2012 8-Deq-053576:45 T4 Free Direct Comments: Is Patient Taking Vitamins or Folic Acid Supplements? NTest performed at:[facility] [address] [place] [address] [place] [address] T4 FREE DIRECT 0.74 ng/dL (Abnormal) Range: 0.76-1.46 2-Izl-613334:45 Thyroid Stim Hormone (TSH) Comments: Is Patient Taking Vitamins or Folic Acid Supplements? NTest performed at:[facility] [address] [place] [address] TSH 1.39 {uIU/mL} (Normal) Range: 0.358-3.74 3-Mug-589856:45 Urinalysis, Routine (Dipstick) Comments: How was Urine Obtained? Urine, RandomTest performed at:[facility] [address] [place] [address] LEUK ESTERASE 500 /ul (Abnormal) OCCULT BLOOD-UR Negative /ul (Normal) NITRITE UR Negative (Normal) UROBILI Normal mg/dL (Normal) PROT DIPSTX Negative mg/dL (Normal) pH UR 8.0 (Normal) Range: 5.0 - 8.0 SP.GR. DIPSTX 1.010 (Normal) Range: 1.002-1.030 KETONE UR Negative mg/dL (Normal) BILIRUBIN URINE Negative mg/dL (Normal) GLUCOSE, UR Normal mg/dL (Normal) CLARITY Sl. Cloudy (Normal) COLOR Yellow (Normal) :45 Vitamin B12 1089 pg/mL (Abnormal) Comments: Test performed at:[facility] [address] [place] [address] Range: 211-911 7-Zat-561862:45 Vitamin D,25 Hydroxy Comments: Test performed at:[facility] [address] [place] [address] Vitamin D 25-OH 23.9 ng/mL (Normal) Comments: Vitamin D 25(OH) Status Range Deficiency <20 ng/mL (50nmol/L) Insuffciency 20 - 30 ng/mL (50 - 75 nmol/L) Sufficiency 30 - 100 ng/mL (75 - 250 nmol/L) Toxicity >100 ng/mL (>250 nmol/L) 67-Mdl-851481:43 ALBUMIN SERUM (26859) Comments: PATIENT NOT FASTINGPERFORMED BY: [facility] Clare6370 [facility] [id number] Albumin, Serum 4.7 g/dL (Normal) Range: 3.5-5.5 33-Cyw-081787:43 PREALBUMIN (10259) Comments: PATIENT NOT FASTINGPERFORMED BY: [facility] Lvzbmh3234 [facility] [id number] Prealbumin 29 mg/dL (Normal) Range: 20-40 37-Urt-422228:21 ANJELICA CULTURE-OTHER (51395) Comments: PATIENT NOT FASTINGPERFORMED BY: [facility]6370 [facility] [id number] Information: SRC:THRT [id number] Result 1 RRF (Normal) Comments: Routine respiratory jasper Upper Respiratory Culture Final report (Normal) 53-Yxs-217569:43 PROLACTIN (15123) Comments: PATIENT NOT FASTINGPERFORMED BY: [facility] Clare6[address] [facility] [id number] Prolactin 13.8 ng/mL (Normal) Range: 4.8-23.3 78-Ozn-358865:43 T3, FREE (TRIDOTHYRONINE) (60004) Comments: PATIENT NOT FASTINGPERFORMED BY: [facility] Clare6370 [facility] [id number] Triiodothyronine,Free,Serum 3.3 pg/mL (Normal) Range: 2.0-4.4 90-Kmn-371771:43 T4, FREE (THYROXINE) (03674) Comments: PATIENT NOT FASTINGPERFORMED BY: [facility] Rhhlff1904 [facility] [id number] T4,Free(Direct) 1.14 ng/dL (Normal) Range: 0.82-1.77 71-Psz-549429:43 TSH (91399) Comments: PATIENT NOT FASTINGPERFORMED BY: [facility] Hqkwxy3179 [facility] [id number] Information: [id number],P93288 TSH 1.580 {uIU/mL} (Normal) Range: 0.450-4.500 :00 [...] CDIFF See Note (Normal) Comments: FAXED TO VT9.634 C. Diff DNA Positive-Toxigenic C. Difficile DNA [...] spora, or Mi crosporidia. TESTING PERFORMED AT [facility]. ORIGINAL REPORT ON FILE IN LAB CONTAINS ADDITIONAL TEST SITE INFORMATION. Ova/Parasite Exam NO OVA, CYSTS, OR PARASITES FOUND. :30 STOB See Note (Normal) Comments: Occult Blood Negative : WBCST See Note (Normal) Comments: Fecal WBC Lactoferrin Negative: No Fecal WBC Lactoferrin present :15 CDIFF See Note (Normal) Comments: C. Diff DNA Negative- No toxigenic C. Diff DNA Detected 5-Ndq-555832:55 Oxcarbazepine (Trileptal),S Comments: PERFORMED BY: [address] [id number] BY: [address] [id number] Oxcarbazepine 32 ug/mL (Normal) Range: 10-35 Comments: Detection Limit = 1 :55 CALCIFIDIOL (14630) VIT D Comments: PERFORMED BY: [address] [id number] BY: [address] [id number] 25 Vitamin D, 25-Hydroxy 27.4 ng/mL (Abnormal) Range: 30.0-100.0 Comments: Vitamin D deficiency has been defined by the [place] of[place]icine and an Endocrine Society practice guideline as alevel of serum 25-OH vitamin D less than 20 ng/mL (1,2).The Endocrine Society went on to further define vitamin Dinsufficiency as a level between 21 and 29 ng/mL (2).1. IOM ([place] of Medicine). 2010. Dietary reference intakes for calcium and D. [place]: The National Academies Press.2. Gabbi MF, Singh MCKEON, Pollo JOSEPH, et al. Evaluation, treatment, and prevention of vitamin D deficiency: an Endocrine Society clinical practice guideline. JCEM. 2010; 96(7):1911-30. :55 Folate (10555) Comments: PERFORMED BY: [facility] [place] [address] [id number] BY: [employer] [id number] Folate (Folic Acid), Serum 16.3 ng/mL (Normal) Comments: A serum folate concentration of less than 3.1 ng/mL isconsidered to represent clinical deficiency. :55 VITAMIN B-12 (CYANOCOBALAMIN) Comments: PERFORMED BY: [facility] [place] [address] [id number] BY: [employer] [id number] (03290) Vitamin B12 889 pg/mL (Normal) Range: 211-946 :55 TSH (57879) Comments: PERFORMED BY: [employer] gAutoDublin [place] [id number] BY: [employer] [id number] TSH 1.670 {uIU/mL} (Normal) Range: 0.450-4.500 :55 SED RATE ERYTHROCYTE Comments: PERFORMED BY: [employer] [place] [id number] BY: [employer] [id number] (35121) Sedimentation Rate-Westergren 6 mm/h (Normal) Range: 0-32 :55 METABOLIC PANEL, Comments: PERFORMED BY: [employer] [id number] BY: [address] [id number] COMPREHENSIVE (81644) ALT (SGPT) 11 [iU]/L (Normal) Range: 0-32 [...] cells when received.This may adversely affect serumChemistries. 2-Ywl-039205:55 C-REACTIVE PROTEIN (33025) Comments: PERFORMED BY: [facility].comVirtua MarltonSsbrmq3576 [facility] [id number] BY: [address] [id number] C-Reactive Protein, Quant 0.9 mg/L (Normal) Range: 0.0-4.9 6-Rvv-263470:55 CBC (AUTO) (12570) Comments: PERFORMED BY: [employer].comAshley [place] 7777570 [facility] [id number] BY: LabJill [place] 586057 [facility] [id number] Platelets 213 {x10E3/uL} (Normal) Range: 140-415 Comments: [...] of these values in the reference population. 0-Phu-332068:29 ANJELICA CULTURE-OTHER (57478) Comments: PATIENT NOT FASTINGPERFORMED BY: [employer] IncKevin [place]ille 7288670 [facility] [id number] Information: SRC:THRT [id number] Result 1 RRF (Normal) Comments: Routine respiratory jasper Upper Respiratory Culture Final report (Normal) 1-Pii-759205:03 Rapid Strep Test, Office (04083) Rapid Strep Test, Negative (Normal) Office 60-Yju-957473:55 CDIF See Note (Normal) Comments: A positive [...] in these cases. C. DIFF ANTIGENS POSITIVE :30 CDIF See Note (Normal) Comments: RESULTS CALLED TO Shanita LEMUS 07/29/12 145MARKUS LAWS.REPORT READ BACK BY ANNY . A positive [...] in these cases. C. DIFF ANTIGENS POSITIVE 21-Toe-671516:00 CDIF See Note (Normal) Comments: A positive [...] these cases. C. DIFF ANTIGENS NEGATIVE :55 [facility] Culture exhibits no growth. (Normal) :55 [facility] 0 SEEN {/hpf} (Normal) UBAC 0 [...] (Abnormal) UCLAR CLEAR (Normal) UCOL STRAW (Normal) 8-Stz-948311:05 C DIF TOXIN/AG See Note (Normal) Comments: C. DIFF ANTIGENS NEGATIVE 10-Dpg-717515:2 TRILEPT 078795 20 ug/mL (Normal) Range: 10-35 4 Comments: Detection Limit = 1Performed at: [facility] [address] [id number] Director: Reji Gibson MD, Phone: [phone] 05-Mtz-760220:1 C DIF TOXIN/AG See Note (Normal) Comments: RESULTS CALLED TO 06/23/112004 VONDA ELAM.REPORT READ BACK BY SAME . * This is an amended result. * A 5 prior result that was reported as final has been changed.06/23/112004 by IESHAPreviously reported as: C. DIFF ANTIGENS POSITIVE 43-Nfo-135685:46 COMP METABOLIC GAP 11 (Normal) Range: 5-15 [...] 7-18 GLU 71 mg/dL (Normal) Range: 70-110 83-Ayj-344844:41 CBCD ABSOLUTE NEUT 5.0 3/uL (Normal) Range: [...] 1 AND SHIGA TOXIN 2 NOT DETECTED : O AND P See Note (Normal) Comments: OVA AND PARASITES EXAM, ROUTINE These results were obtained using wet preparation(s) and trichrome stained smear. This test does not include testing for Crytosporidium parvum, Cyclospora, or Microspo ridia. TESTING PERFORMED AT [facility]. ORIGINAL REPORT ON FILE IN LAB CONTAINS ADDITIONAL TEST SITE INFORMATION. OVA/ PARASITES EXAM NO OVA, CYSTS, OR PARASITES FOUND. :21 WBC,STOOL See Note (Normal) Comments: RESULTS CALLED TO OFFICE TO RejiIZBFBRAQ94/04/10 1151 KRISTIAN MILLER.REPORT READ BACK BY SAME [...] Cyclospora, or Microspo ridia. TESTING PERFORMED AT [facility]. ORIGINAL REPORT ON FILE IN LAB CONTAINS ADDITIONAL TEST SITE INFORMATION. OVA/ PARASITES EXAM NO OVA, CYSTS, OR PARASITES FOUND. :20 WBC,STOOL See Note (Normal) Comments: FECAL WBCs NONE SEEN 89-Fal-537553:14 C DIF TOXIN See Note (Normal) 46-Chb-318776:44 O AND P See Note (Normal) Comments: OVA AND PARASITES EXAM, ROUTINE These results were obtained using wet preparation(s) and trichrome stained smear. This test does not include testing for Crytosporidium parvum, Cyclospora, or Microspo ridia. TESTING PERFORMED AT [facility]. ORIGINAL REPORT ON FILE IN LAB CONTAINS ADDITIONAL TEST SITE INFORMATION. OVA/ PARASITES EXAM NO OVA, CYSTS, OR PARASITES FOUND. 34-Rjo-654918:44 OCCULT BLD,iFOB See Note (Normal) Comments: OCCULT [...] Cyclospora, or Microspo ridia. TESTING PERFORMED AT [facility]. ORIGINAL REPORT ON FILE IN LAB CONTAINS [...] :00 TSH 1.63 {uIU/mL} (Normal) Range: 0.358-3.74 63-Lew-868176:00 CULTURE, SPUTUM GRAM STAIN See Note (Normal) Comments: GRAM STAIN RARE WHITE BLOOD CELLS RARE GRAM POSITIVE COCCI RARE GRAM NEGATIVE RODS Plan of Care Name Dates Details Instructions Type II diabetes mellitus, well controlled : Continue Current Prescription(s) Indication: Type II diabetes mellitus, well controlled Convulsions : Reviewed Pastoral Counselor Letter Indication: Convulsions Neuromuscular scoliosis : Follow [...] Cystitis, acute Planned Observations URINE ANJELICA CULTURE-IDENTIFICATN (25534)Indication: Abnormal urine On: 6-Glq-646374:25 Request MRSA Culture (50679)Indication: Thick sputum On: 9-Rmf-844365:32 Request Anaerobic & Aerobic Culture (07902)Indication: Thick sputum On: 06-Lyb-774064:46 Request Comments: collected from trachea stoma Anaerobic & Aerobic Culture (23681)Indication: Cellulitis of groin, right On: 1-Kue-642512:44 Request TRILEPTAL-OXCARBAZEPINE 983414 (44727)Indication: Diarrhea On: :24 Request VITAMIN B12 AND FOLATES (23948)Indication: Diarrhea On: :24 Request CALCIFEDIOL (09468)Indication: Diarrhea On: :24 Request CALCIFEDIOL (75235)Indication: Diarrhea On: : Request TSH (THYROID STIMULATING HORMONE) (78144)Indication: Diarrhea On: : Request METABOLIC PANEL, COMPREHENSIVE (70020)Indication: Diarrhea On: : Request CBC, PLATELETS & AUT DIFF (69507)Indication: Diarrhea On: : Request OVA & PARASITE DIR SMEAR (48666)Indication: Diarrhea On: :46 Request ANJELICA CULTURE-STOOL (13863)Indication: Diarrhea On: :46 Request OCCULT BLOOD FECES SCREEN (26970)Indication: Diarrhea On: :46 Request LEUKOCYTE COUNT, FECAL (84496)Indication: Diarrhea On: :46 Request C-DIFFICILE, STOOL (24061)Indication: Diarrhea On: :46 Request OVA & PARASITE DIR SMEAR (23352)Indication: C. difficile diarrhea On: :50 Request OCCULT BLOOD FECES SCREEN (92264)Indication: C. difficile diarrhea On: 0-Bca-887125:50 Request ANJELICA CULTURE-STOOL (78507)Indication: C. difficile diarrhea On: :50 Request LEUKOCYTE COUNT, FECAL (70922)Indication: C. difficile diarrhea On: :50 Request C-DIFFICILE, STOOL (58547)Indication: C. difficile diarrhea On: :49 Request Clostridium difficile Culture (20207)Indication: Diarrhea On: :52 Request URINALYSIS, W/ MICRO (25539)Indication: Dysuria On: :56 Request URINE ANJELICA CULTURE-SISSY COL COUNT (30671)Indication: Dysuria On: :54 Request OCCULT BLOOD FECES SCREEN (96489)Indication: Diarrhea On: 84-Cye-679077:01 Request LEUKOCYTE COUNT, FECAL (55927)Indication: Diarrhea On: :05 Request ANJELICA CULTURE-STOOL (68447)Indication: Diarrhea On: : Request Clostridium difficile Toxin A+B, EIA (04710)Indication: Diarrhea On: :05 Request TRILEPTAL-OXCARBAZEPINE 628813 (08607)Indication: Convulsions On: 87-Rpx-013433:55 Request PREALBUMIN (11506)Indication: Nutritional assessment On: :45 Request CALCIFIDIOL (35058) VIT D 25Indication: Vitamin D deficiency On: :44 Request TSH (14872)Indication: Hypertension On: :44 Request METABOLIC PANEL, COMPREHENSIVE (01574)Indication: Hypertension On: :44 Request LIPID PANEL (59219)Indication: Hypertension On: :44 Request CBC with auto diff (23813)Indication: Hypertension On: :44 Request Metabolic Panel, Basic (55887)Indication: Abnormal urine On: :03 Request VITAMIN B12 AND FOLATES (20378)Indication: Abnormal urine On: :03 Request CALCIFEDIOL (83388)Indication: Abnormal urine On: :03 Request Comments: vit d3 URINE ANJELICA CULTURE-SISSY COL COUNT (16080)Indication: Abnormal urine On: :52 Request TRILEPTAL-OXCARBAZEPINE 542606 (14864)Indication: Cerebral palsy On: :46 Request HCG Qualitative, Serum (55677)Indication: Amenorrhea On: :45 Request PROLACTIN (44095)Indication: Amenorrhea On: :44 Request PREALBUMIN (49977)Indication: Cerebral palsy On: :43 Request URINALYSIS (58626)Indication: Fatigue On: :43 Request T3, FREE (TRIDOTHYRONINE) (30490)Indication: Fatigue On: :43 Request T4, FREE (THYROXINE) (27475)Indication: Fatigue On: :43 Request Folate (67054)Indication: Fatigue On: :42 Request CALCIFIDIOL (90854) VIT D 25Indication: Fatigue On: :42 Request VITAMIN B-12 (CYANOCOBALAMIN) (83688)Indication: Fatigue On: :42 Request TSH (54738)Indication: Fatigue On: :42 Request SED RATE ERYTHROCYTE (63948)Indication: Fatigue On: :42 Request METABOLIC PANEL, COMPREHENSIVE (76038)Indication: Fatigue On: :42 Request C-REACTIVE PROTEIN (36971)Indication: Fatigue On: :42 Request CBC (AUTO) (20279)Indication: Fatigue On: :42 Request CULTURE,BODY FLUID (92952)Indication: Irregular Menstrual Cycle (Renamed from Irregular bleeding) On: 29-Xif-556973:07 Request Comments: urine Rapid Strep Test, Office (74223)Indication: Pharyngitis, acute On: 85-Kxe-699056:51 Request Urinalysis, Office (42350)Indication: Fatigue On: 34-Ikp-532926:49 Request HgA1C , Office (81139)Indication: Hyperglycemia On: 52-Uij-542528:41 Request CALCIFIDIOL (01934) VIT D 25Indication: Vitamin D deficiency On: 12-Wau-846793:32 Request TRILEPTAL-OXCARBAZEPINE 147323 (32679)Indication: Convulsions On: 63-Xcp-087211:31 Request Metabolic Panel, Comprehensive (26175)Indication: Acute renal failure On: 62-Mth-821374:31 Request CBC with manual diff (73298)Indication: Hypertension On: 13-Ddo-718221:31 Request CBC with manual diff (51525)Indication: Thrombocytopenia, unspecified On: :35 Request Comments: in citrate tube FIBRINOGEN (48373)Indication: Thrombocytopenia, unspecified On: :35 Request PTT (Activated Partial Thromboplastin Time) (44534)Indication: Thrombocytopenia, unspecified On: :35 Request PT (Prothrobim Time) (86550)Indication: Thrombocytopenia, unspecified On: :35 Request HEPATITIS C ANTIBODY (10293)Indication: Thrombocytopenia, unspecified On: Request HEPATITIS B CORE ANTBD-IGG/IGM (18232)Indication: Thrombocytopenia, unspecified On: :35 Request HEPATITIS B SURFACE ANTIGEN (41320)Indication: Thrombocytopenia, unspecified On: Request HEPATITIS B SURFACE ANTIBODY (33138)Indication: Thrombocytopenia, unspecified On: :35 Request Methylmalonic acid, serum 24664Sywsttibws: Thrombocytopenia, unspecified On: Request Vitamin B-12 (cyanocobalamin) (55388)Indication: Thrombocytopenia, unspecified On: : Request Sed Rate Erythrocyte (35429)Indication: Thrombocytopenia, unspecified On: : Request Metabolic Panel, Comprehensive (34827)Indication: Thrombocytopenia, unspecified On: :35 Request JENNY (ANTINUCLEAR ANTIBODY) (55642)Indication: Thrombocytopenia, unspecified On: :35 Request CBC with manual diff (53746)Indication: Convulsions On: 83-Jco-097083:31 Request Clostridium difficile Toxin A+B, EIA (34573)Indication: Diarrhea On: :31 Request OVA & PARASITE DIR SMEAR (74363)Indication: Diarrhea On: :44 Request OCCULT BLOOD FECES SCREEN (83227)Indication: Diarrhea On: :44 Request LEUKOCYTE COUNT, FECAL (55659)Indication: Diarrhea On: :44 Request ANJELICA CULTURE-STOOL (38096)Indication: Diarrhea On: :44 Request Clostridium difficile Toxin A+B, EIA (61251)Indication: Diarrhea On: 84-Jtd-724046:22 Request C DIFF AMPLIFIED PROBE (05679)Indication: Diarrhea On: 82-Jza-08348:51 Request Metabolic Panel, Comprehensive (43956)Indication: Acute renal failure On: 1-Lvo-463294:08 Request Comments: recheck prior to August apt. CALCIFIDIOL (09817) VIT D 25Indication: Vitamin D deficiency On: 0-Wpe-847389:08 Request Comments: recheck prior to August apt. TRILEPTAL-OXCARBAZEPINE 571770 (22480)Indication: Convulsions On: :08 Request Culture, Stool (79131)Indication: Diarrhea On: :01 Request C DIFF AMPLIFIED PROBE (04329)Indication: Diarrhea On: :01 Request C DIFF AMPLIFIED PROBE (71030)Indication: Diarrhea On: 57-Ypz-744219:32 Request C DIFF AMPLIFIED PROBE (14457)Indication: Diarrhea On: 45-Dso-808720:51 Request URINE ANJELICA CULTURE-IDENTIFICATN (23362)Indication: Backache On: 5-Yuy-311530:58 Request URINALYSIS (79398)Indication: Backache On: 5-Wgp-602824:58 Request Metabolic Panel, Comprehensive (43077)Indication: Profound mental retardation (Renamed from IQ under 20) On: 9-Xoo-608447:25 Request Comments: Dr Pino neurologist at [facility] CBC (Auto) (08718)Indication: Profound mental retardation (Renamed from IQ under 20) On: 7-Niy-155200:25 Request TRILEPTAL-OXCARBAZEPINE 295676 (37489)Indication: Cerebral palsy On: 6-Luu-834109:24 Request COLUMN CHROMATOGRAPHY, SISSY, SINGLE (97979)Indication: Convulsions On: 19-Ang-185730:54 Request Comments: trileptal 459943 Clostridium difficile Toxin A+B, EIA (03302)Indication: Diarrhea On: 91-Cuc-108901:26 Request CBC (Auto) (13241)Indication: Convulsions On: 30-Usg-898535:25 Request Metabolic Panel, Comprehensive (79325)Indication: Convulsions On: 58-Jjw-180075:24 Request ANJELICA CULTURE-OTHER (56370)Indication: Pharyngitis, acute On: 1-Miq-267361:44 Request C.Difficile, Stool (37315)Indication: Diarrhea On: 40-Wem-898188:48 Request ANJELICA CULTURE-STOOL (38107)Indication: Diarrhea On: 6-Silas-16204:55 Request C.Difficile, Stool (08411)Indication: Diarrhea On: :54 Request LEUKOCYTE COUNT, FECAL (42893)Indication: Diarrhea On: : Request OVA & PARASITE DIR SMEAR (82908)Indication: Diarrhea On: :27 Request C.Difficile, Stool (85988)Indication: Diarrhea On: :27 Request ANJELICA CULTURE-STOOL (92051)Indication: Diarrhea On: :27 Request TSH (92525)Indication: Unspecified bacterial pneumonia On: :48 Request CBC, Platelets & Auto Diff (76998)Indication: Unspecified bacterial pneumonia On: :48 Request Magnesium (21836)Indication: Unspecified bacterial pneumonia On: :48 Request Phosphorus (46360)Indication: Unspecified bacterial pneumonia On: :48 Request Metabolic Panel, Basic (73675)Indication: Unspecified bacterial pneumonia On: :48 Request Planned Encounters Medical; 4 Month FU - On: 10-Oct-2018 13:15 [facility] Sandra Bermudez DO, DO, Kathleen Planned Procedures Flu Vaccine (Quadrivalent) On: 06-Jun-2018 Intent 80688Vv: Sandra Bermudez DO Comments: Lot #[id number]-L dltd, IMDose prefilled syringegiven by:MARICARMEN Santana reviewed and ABN signed Sandra Bermudez DO Flu Vaccine (Quadrivalent) On: 02-Aug-2017 Intent 46617Xm: Sandra Bermudez DO Comments: Lot:[id number]:12/29Amt:0.5mlRoute:IMSite: Rt DltdGiven By: ALFREDITO James signed Sandra Bermudez DO Flu Vaccine (Quadrivalent) On: 14-May-2016 Intent 25173Nx: Sahil LEIJA, Roe Comments: Lot #[id number]-L dltd, IMDose prefilled syringegiven by:ALFREDITO Goldberg and ABN signed ADMINISTRATION OF INFLUENZA On: 02-Aug-2015 Intent VIRUS VACCINE (G0008)By: Linda Houston MD Flu Vaccine (Quadrivalent) On: 02-Aug-2015 Intent 96450Hd: Linda Houston MD Comments: Lot #:[id number] date:Amount given:0.5mlRoute: IMSite given:L DltdGiven by: Jessica BASSETT and ABN signed Quad Flu ELECTROCARDIOGRAM, COMPLETE On: 21-Mar-2015 Intent (ECG) (55944)By: Linda Houston MD CT - Brain/Head (IV Contrast On: 29-Nov-2014 Intent Needed)By: Linda Houston MD ADMINISTRATION OF INFLUENZA On: 06-Aug-2014 Intent VIRUS VACCINE (G0008)By: TIMBO Villegas Flu Vaccine (Quadrivalent) On: 06-Aug-2014 Intent 19615Uu: TIMBO Villegas Comments: Lot #:[id number] date:mount given:0.5mlRoute: IM Site given:Given by: to be given per patient home health nurse CATHETERIZE FOR URINE SPEC On: 09-Mar-2014 Intent (P9612)By: Linda Houston MD Comments: pls use pediatric cath- and fax results to [phone] SPECIMEN HNDLNG/TRNSPRT, OFFC > On: 09-Mar-2014 Intent LAB (78135)By: Linda Houston MD IMMUNIZ ADMNIN, 1 VAC, On: 28-Jul-2013 Intent SNGL/COMBO (55131)By: Archie BOLDEN, Comments: Lot #[id number] to nurse for admin Jessica Stack FLU VAC, SPLIT, >3 YEARS, On: 28-Jul-2013 Intent INTRAMUSC (76147)By: Jessica Almanza LPN SPECIMEN HNDLNG/TRNSPRT, OFFC > On: 18-May-2013 Intent LAB (43770)By: Linda Houston MD Eprescribed prescriptions On: 18-May-2013 Intent (G8553)By: Jessica Almanza LPN FLU VAC, SPLIT, >3 YEARS, On: 23-Jun-2011 Intent INTRAMUSC (77084)By: Long FURNACE LOADER, Comments: Lot #[id number]-L arm, IMDose prefilledgiven by:Jessica Stack IMMUNIZ ADMNIN, 1 VAC, On: 23-Jun-2011 Intent SNGL/COMBO (77764)By: Jessica Almanza LPN Instructions Name Dates Details [...] Indication: Cerebral palsy Encounters Phone Encounter On: 15-Jul-2018 15:39 Encounter Diagnosis: [...] well. Patient has been compliant with instructions. Curren End: 12-Feb-2016 13:19 t medication use: no [...] for the procedure will be Dr Beck - [facility]. The chief complaint is teeth cleanin End: [...] G tube patient does not eat orally Lamontecatabdiel Urbano End: 13-Jun-2009 14:32 ml qid inbetween 4 [...]
--- OUTSIDE RECORDS SUMMARY | 2018-10-08 11:21 | XMS RPT_ITS | Continuity of Care Document ---
:1990 Author Organization [facility] Address [address] [place] [address] Phone Care Team Providers Name Role Phone [...] Propionate 50 MCG/ACT Nasal Suspension 2 (two) Ellenwood(s) Ellenwood(s) each nostril qd for 90 days Quantity: 1 {QS} Refills: 3 Ordered:16-Sep-2017 Karin Bermudez DO, DO, Kathleen Start : 16-Sep-2017 Active HumaLOG KwikPen 100 UNIT/ML Subcutaneous Solution Pen-injector 6 Unit with meals for 30 days Quantity: 1 {Pre-filled_Pen_Syringe} Refills: 5 Ordered:07-Jul-2018 Karin Bermudez DO, DO, Kathleen Start : 07-Jul-2018 Active Lantus SoloStar 100 UNIT/ML Subcutaneous Solution Pen-injector 10 Unit bid for 30 days Quantity: 1 {Box} Refills: 3 Ordered:07-Jul-2018 Karin Bermudez DO, DO, Kathleen Start : 07-Jul-2018 Active Miconazole Nitrate 2 % External Cream 1 (one) Cream Cream three times daily for 10 days Quantity: 1 {Tube} Refills: 1 Ordered:14-May-2016 Daisy Pineda LPN Start : 14-May-2016 Active NAPHCON-A, 0.025-0.3% (Ophthalmic Solution) 1-2 gtt gtt up to qid prn for redness/itching for 0 days Quantity: 1 {Each} Refills: 0 Ordered:20-Jan-2016 Linda Houston MD Start : 20-Jan-2016 Active Nyamyc 131788 UNIT/GM External Powder uad Powder to affected area(s) bid and prn for 0 days Quantity: 15 {Bottle} Refills: 6 Ordered:19-Nov-2017 Karin Bermudez DO, DO, Kathleen Start : 19-Nov-2017 End : 17-Nov-2013 Active Nystatin 056834 UNIT/GM External Cream uad Cream to affected area(s) bid prn for 7 days Quantity: 1 {Bottle} Refills: 3 Ordered:03-Jun-2018 Karin Bermudez DO, DO, Kathleen Start : 03-Jun-2018 Active Nystatin 684036 UNIT/ML Mouth/Throat Suspension 5 ml ml 5 times day for 10 days Quantity: 250 {Milliliter} Refills: 9 Ordered:03-Apr-2016 Long KIMI, Jessica L Start : 03-Apr-2016 Active Nystatin Powder 1 Powder Powder tid for 10 days Quantity: 1 {Bottle} Refills: 3 Ordered:28-Jun-2017 Karin Bermudez DO, DO, Kathleen Start : 28-Jun-2017 Active Pen Rarden 31G X 5 MM Miscellaneous 1 (one) [...] DO, DO, Kathleen Start : 30-Mar-2018 Active VITAMIN D3, 1000UNIT (Oral Tablet) 1 Tablet Tablet qd for 0 days Quantity: 30 {Tablet} Refills: 6 Ordered:21-Mar-2015 Long RECEIVING DISTRIBUTION STATION OPERATOR, Jessica L Start : 22-May-2013 Active Xopenex 1.25 [...] for 0 days Refills: 0 Ordered:23-Jun-2011 Long RECEIVING DISTRIBUTION STATION OPERATOR, Jessica L End : 23-Jun-2011 Inactive LevoFLOXacin 25 MG/ML Oral Solution 1 (one) Solution 500mg daily for 7 days Quantity: 3500 {Milligram} Refills: 0 Ordered:17-Feb-2017 Katia JOHNSTON Jasmin Start : 17-Feb-2017 End : 24-Feb-2017 Inactive LIDOCAINE, 5% (External Ointment) Ointment uad for 0 days Quantity: 1 {Ointment} Refills: 3 Ordered:14-Jan-2012 TIMBO Villegas Start : 13-Jun-2009 End : 14-Jan-2012 Inactive LUNESTA, 1MG (Oral Tablet) 1 qd (crushed or dissolved) for 0 days Refills: 0 Ordered:23-Jun-2011 Long RECEIVING DISTRIBUTION STATION OPERATOR, Jessica L End : 23-Jun-2011 Inactive MUCINEX FOR KIDS, 100MG/5ML (Oral Liquid) Liquid 15 cc tid 14 days for 0 days Refills: 0 Ordered:23-Jun-2011 Long RECEIVING DISTRIBUTION STATION OPERATOR, Jessica L Start : 13-Jun-2009 End : [...] Quantity: 30 {Packet} Refills: 2 Ordered:15-May-2016 Long RECEIVING DISTRIBUTION STATION OPERATOR, Jessica L Start : 14-May-2016 End : [...] days Quantity: 1 {Box} Refills: 5 Ordered:10-Jun-2018 Miriam Daisy KIMI Start : 08-Jun-2018 End : 10-Jun-2018 Inactive [...] nostril qd for 0 days Quantity: 1 {Ellenwood} Refills: 3 Ordered:09-Apr-2015 Linda Houston MD Start : 09-Apr-2015 End : 20-Jan-2016 Discontinued Comments:This order discontinued per [employer]. MUCOMYST, 20% (Inhalation Solution) 1 bid/prn for 0 days Refills: 0 Ordered:23-Jun-2011 Long RECEIVING DISTRIBUTION STATION OPERATOR, Jessica L End : 23-Jun-2011 Discontinued Comments:This order discontinued per [employer]. VYTONE, 1-1% (External Cream) Cream bid for 0 days Quantity: 1 {Cream} Refills: 3 Ordered:13-Jun-2009 Long RECEIVING DISTRIBUTION STATION OPERATOR, Jessica L Start : 13-Jun-2009 End : [...] Comments: See Note; NOTES: [facility] of [address] [place] [address] OFFICE VISIT Date of Service: 05/25/18 MR#: [id number] Acct: [id number] Name: MANDY MONTERO Rep #: [id number] : 1990 Provider: Lawrence Weiner MD Age/Sex: 28/F Location: [facility].PMW Status: Signed Assessment AND Plan Problems 1. [...] other complications are noted. No change in patien t's aerosol regimen. Intake Vital Signs05/25/18 Height 4 [...] Department Summary Result: Comments: See Note; NOTES: [facility] Medical Records Department [address] [place] [address] Emergency Department Summary 01/24/18 1645 MR#: [id number] Acct: [id number] Name: MANDY MONTERO Rep #: [id number] : 1990 27 From: Stephan Hughes MD [...] Discharged to home Impression: 1. Cellulitis left hian k region 2. Dysuria of unknown etiology 3. History of MRDD 4. History of Propulsid 5. History of chronic respiratory failure on ventilator This note was generated with [employer] dictation software. It m ay contain incorrect [...] Instructions: Mandy [facility] to [facility] What to do if you have Problems For any increased pain, shortness of breath, bleeding, nausea or vomiting, chest pain, or any unexpected problems, contact your Primary Care Provider. Call Doctors Registry ([phone]) or report to the closest Emergency Room. Call 911 if necessary. 01/24/18 6068 <Electronically signed by Stephan Hughes MD> Date Stephan Hughes MD Cosigner Signature (If Indicated): Date CC: Sandra Bermudez DO 10-Dec-2017 Pulmonary Visit Report Result: Comments: See Note; NOTES: [facility] of [place] [address] [place] [address] OFFICE VISIT Date of Service: 12/09/17 MR#: [id number] Acct: [id number] Name: MANDY MONTERO Rep #: [id number] : 1990 Provider: Lawrence Weiner MD Age/Sex: 27/F Location: [facility].PMW Status: Signed Assessment AND Plan 1. Chronic [...] Visit Reasons: 3 M FU Accompanied by: Mom Renato cohn linezolid Allergy (Severe, Verified 12/09/17 13:52) [...] Date (if applicable) CC: Sandra Bermudez DO 03-Sep-2017 Pulmonary Visit Report Result: Comments: See Note; NOTES: [facility] of [place] [address] [place] [address] OFFICE VISIT Date of Service: 09/02/17 MR#: [id number] Acct: [id number] Name: MANDY MONTERO Rep #: [id number] : 1990 Provider: Lawrence Weiner MD Age/Sex: 27/F Location: [facility].PMW Status: Signed Assessment AND Plan 1. Spastic [...] mg (10 mL) PO QDAY PRN allergy qupzevddP77 .2 Ok to give through PEG Follow [...] cot with her mother and healthcare assistant corporate controller. Family reports the patient has had copious [...] 23.2 Intake Visit Reasons: 6 M FU Renato cohn linezolid Allergy (Severe, Verified 08/28/17 08:44) Other [...] Department Summary Result: Comments: See Note; NOTES: [facility] Medical Records Department [address] [facility] [place] [address] Emergency Department Summary MR#: [id number] Acct: [id number] Name: MANDY MONTERO Rep #: [id number] : 1990 26 From: Flip Jessica MD PCP: Sandra Bermudez DO Status: [facility] ER DATE OF SERVICE: 03/06/2017 [...] . Flip Jessica MD T: NTS JOB: [id number] 03/10/17805 <Electronically signed by Flip Jessica MD> Date Flip Jessica MD Cosigner Signat ure (If Indicated): Date CC: Sandra Bermudez DO Date Dictated: 03/06/171722 Date Transcribed: 03/06/171722 Shaker Tender: Signed 06-Mar-2017 Discharge Instruction Result: Comments: See Note; NOTES: [facility] Medical Records Department [address] [place] [address] Discharge Instruction 03/06/171719 MR#: [id number] Acct: [id number] Name: ROMELIA MONTERO Rep #: [id number] : 1990 26 From: Flip Jessica MD [...] problems, contact your Primary Care Provider. Call [facility] ([phone]) or report to the closest Emergency Room. Call 911 if necessary. 03/06/17 1720 <Electronically signed by Flip Jessica MD> Date Flip Jessica MD Cosigner Signature (If Indicated): Date CC: Sandra Bermudez DO 06-Mar-2017 Chest 1 View Result: Comments: See Note; NOTES: [facility] Imaging Services [address] [place] [address] Verdana 4d Chest 1 View MR#: [id number] Acct: [id number] Name: MANDY MONTERO Rep #: [id number] : 1990 F 26 From: Merritt Bolton MD PCP: Sandra Bermudez DO Status: REG ER Study: Chest 1 View Date of Exam: 03/06/17 Exam# [id number] Ordering Dr: Flip Jessica MD STUDY: X-RAY [...] CC: Flip Jessica MD; Sandra Bermudez DO Shaker Tender: Signed 06-Mar-2017 Thoracic Spine 3 Views Result: Comments: See Note; NOTES: [facility] Imaging Services [address] [place] [address] Verdana 4d Thoracic Spine 3 Views MR#: [id number] Acct: [id number] Name: MANDY MONTERO Rep # : [id number] : 1990 F 26 From: Merritt Bolton MD PCP: Sandra Bermudez DO Status: REG ER Study: Thoracic Spine 3 Views Date of Exam: 03/06/17 Exam# [id number] Ordering Dr: Flip Jessica MD TERESA DY: X-RAY - THORACIC SPINE REASON FOR [...] CC: Flip Jessica MD; Sandra Bermudez DO Shaker Tender: Signed 10-Sep-2016 Chest 1 View (Portable) Result: Comments: See Note; NOTES: [facility] Imaging Services [address] [place] [address] Verdana 4d Chest 1 View (Portable) MR#: [id number] Acct: [id number] Name: MANDY MONTERO Rickey Rep #: [id number] : 1990 F 26 From: Mandy Chávez MD PCP: Sandra Bermudez DO Status: PRE ER Study: Chest 1 View (Portable) Date of Exam: 09/10/16 Exam# [id number] Ordering Dr: Vinnie Sher MD STUDY: X-RAY [...] MD at 23:49 EST , Service support [phone], CC: Linden Sher MD; Sandra Bermudez DO Shaker Tender: Signed 12-Mar-2016 Emergency Department Summary Result: Comments: See Note; NOTES: [facility] Medical Records Department [address] [place] [address] Emergency Department Summary MR#: [id number] Acct: [id number] Name: MANDY MONTERO Rep #: [id number] : 1990 25 From: Joseph Mcgee MD [...] Signature (If Indicated): Date _ CC: Jewel Baxter; Roe Baxter Date Dictated: 02/29/16112 Date Transcribed: 02/29/16112 Shaker Tender: Signed 28-Feb-2016 Discharge Instruction Result: Comments: See Note; NOTES: [facility] Medical Records Department [address] [place] [address] Discharge Instruction 02/28/161925 MR#: [id number] Acct: [id number] Name: MANDY MONTERO Rep #: [id number] : 1990 25 From: Joseph Mcgee MD [...] problems, contact your doctor. Call Doctors Registry ([phone]) or report to the closest Emergency Room. Call 911 if necessary. 224 <Electronically signed by Joseph Mcgee MD> Date Joseph Mcgee MD Cosigner Signature (If Indicated): Date ___ CC: Roe Baxter 28-Feb-2016 Abdomen/Pelvis without Cont Result: Comments: See Note; NOTES: [facility] Imaging Services [address] [place] [address] Verdana 4d Abdomen/Pelvis without Cont MR#: [id number] Acct: [id number] Name: MANDY MONTERO Rep #: [id number] : 1990 F 25 From: Seymour Villagomez MD PCP: Roe Baxter Status: REG ER Study: Abdomen/Pelvis without Cont Date of Exam: 02/28/16 Exam# [id number] Ordering Dr: Joseph Patton MD STUDY: CT [...] MD at 18:47 EDT , Service support [phone], CC: Roe Baxter; Joseph Mcgee MD Shaker Tender: Signed 25-Feb-2016 Emergency Department Summary Result: Comments: See Note; NOTES: [facility] Medical Records Department [address] [place] [address] Emergency Department Summary MR#: [id number] Acct: [id number] Name: MANDY MONTERO Rep #: [id number] : 1990 25 From: Tomás Willis MD [...] Tejas Beltre C: Roe Baxter MD T: NTS JOB: [id number] 02/25/161516 <Electronically signed by Tomás Willis MD> Date Tmoás Willis MD Cosigner Signature (If Indicated): Date CC: Roe Baxter Date Dictated: 02/23/161520 Date Transcribed: 02/23/161520 Shaker Tender: Signed 23-Feb-2016 Discharge Instruction Result: Comments: See Note; NOTES: [facility] Medical Records Department [address] [place] [address] Discharge Instruction 02/23/161513 MR#: [id number] Acct: [id number] Name: MANDY MONTERO Rep #: [id number] : 1990 From: Tomás Willis MD PCP: [...] problems, contact your doctor. Call Doctors Registry ([phone]) or report to the closest Emergency Room. Call 911 if necessary. 6 1516 <Electronically signed by Tomás Willis MD> Date Tomás Willis MD Cosigner Signature (If Indicated): Date CC: Roe Baxter 28-Jan-2016 Chest 1 View (Portable) Result: Comments: See Note; NOTES: [facility] Imaging Services [address] [place] [address] Verdana 4d Chest 1 View (Portable) MR#: [id number] Acct: [id number] Name: MANDY ACUNA Rep #: [id number] : 1990 F 25 From: Abdirahman Awad MD PCP: Linda Houston MD Status: PRE ER Study: Chest 1 View (Portable) Date of Exam: 01/28/16 Exam# [id number] Ordering Dr: Edita Willis MD STUDY: X-RAY [...] MD at 22:53 EDT , Service support [phone], RAD/Chest 1 View (Portable) IMPRESSION: Retrocar diac density in left lower lobe possibly representing atelectasis or infiltrate. Recommend lateral view for further assessment Electronically Signed: Abdirahman Awad MD at 22:53 EDT , Service support [phone], CC: Linda Houston MD; Tomás Willis MD Shaker Tender: Signed Family History Unknown Family Member Name Dates Details She was adopted at 5 months Status: Active Social History Name Dates Details Current Work/Study Status Comments: Disabled Status: Active Exercise History Comments: Inactive Status: Active Living Situation Comments: MRCP child lives with mom Status: Active No Caffeine Use Status: Active No Drug Use Status: Active Non Drinker/No Alcohol Use Status: Active Non Smoker/No Tobacco Use Status: Active Vital Signs Date Test Result Details :15 Pulse 104 /min Comments: Pattern: Regular O2 [...] lb :43 Comments: [facility] Temperature 97 f Comments: Method: Temporal Pulse [...] Arm; Cuff Size: Standard Weight 87 lb :56 Comments: unable to obtain height weight reported [...] 0.00 cm Results Date Description Value Details 36-Ukh-949796:37 TSH (62807) Comments: PATIENT NOT FASTINGPERFORMED BY: Anemoi RenovablesLyons VA Medical CenterZgtxyf4[address] [place] [address] [id number] BY: dinCloud[address] [id number] TSH 1.030 {uIU/mL} (Normal) Range: 0.450-4.500 68-Fxk-743136:37 T4, FREE (THYROXINE) Comments: PATIENT NOT FASTINGPERFORMED BY: Hibernater Cdsift0643 [facility] [id number] BY: Hibernater[address] [id number] ([address]) T4,Free(Direct) 0.84 ng/dL (Normal) Range: 0.82-1.77 :37 T3, FREE (TRIDOTHYRONINE) Comments: PATIENT NOT FASTINGPERFORMED BY: Anemoi RenovablesLyons VA Medical CenterKumjgp2213 [facility] [id number] BY: BN [address] [id number] ([address]) Triiodothyronine (T3), Free 2.6 pg/mL (Normal) Range: 2.0-4.4 92-Hjw-372251:37 CALCIFIDIOL (75813) VIT D Comments: PATIENT NOT FASTINGPERFORMED BY: [facility]6370 [facility] [id number] BY: [address] [id number] 25 Vitamin D, 25-Hydroxy 42.6 ng/mL (Normal) Range: 30.0-100.0 Comments: Vitamin D deficiency has been defined by the [place] [facility] and an Endocrine Society practice guideline as alevel of serum 25-OH vitamin D less than 20 ng/mL (1,2).The Endocrine Society went on to further define vitamin Dinsufficiency as a level between 21 and 29 ng/mL (2).1. IOM ([place] of Medicine). 2010. Dietary reference intakes for calcium and D. [place]: The National Academies Press.2. Gabbi MF, Singh MCKEON, Pollo JOSEPH, et al. Evaluation, treatment, and prevention of vitamin D deficiency: an Endocrine Society clinical practice guideline. JCEM. 2010; 96(7):1911-30. 74-Wnx-917238:37 TRILEPTAL-OXCARBAZEPINE 282568 Comments: send results to dr delgado too; PATIENT NOT FASTINGPERFORMED BY: HibernaterDzilth-Na-O-Dith-Hle Health CenterRefbzu4011 [facility] [id number] BY: [address] [id number] (76138) Oxcarbazepine 49 ug/mL (Abnormal) Range: 10-35 Comments: Detection Limit = 1 40-Mln-126254:37 CBC with auto diff Comments: send results to dr delgado too; PATIENT NOT FASTINGPERFORMED BY: [facility]6370 [facility] [id number] BY: [address] [id number] (98917) Immature Grans (Abs) 0.0 {x10E3/uL} (Normal) Range: [...] 3.77-5.28 WBC 6.3 {x10E3/uL} (Normal) Range: 3.4-10.8 63-Aez-024087:37 METABOLIC PANEL, Comments: send results to dr delgado too; PATIENT NOT FASTINGPERFORMED BY: CB [facility] Qzoybs6495 [facility] [id number] BY: BN [facility] [address] [id number] RUST (41872) ALT (SGPT) 38 [iU]/L (Abnormal) Range: 0-32 [...] 6-20 Glucose 237 mg/dL (Abnormal) Range: 65-99 78-Vbp-347494:37 HGB A1C (48724) Comments: PATIENT NOT FASTINGPERFORMED BY: CB [facility] Ykhizm6099 [facility] [id number] BY: BN [facility] [address] [id number] Hemoglobin A1c 6.3 % (Abnormal) Range: 4.8-5.6 Comments: . Prediabetes: 5.7 - 6.4 Diabetes: >6.4 Glycemic control for adults with diabetes: <7.0 61-Hga-254508:00 Urinalysis, Complete Comments: How was Urine Obtained? [facility] [address] [place], [place], [id number] MUCUS, URINE 0 SEEN {/hpf} (Normal) BACTERIA [...] (Abnormal) CLARITY Clear (Normal) COLOR Yellow (Normal) 18-Fqi-028677:50 Basic Metabolic Profile (BMP) Comments: [facility] [address] [place], [place], [address] GAP 8 (Normal) Range: 5-15 CO2 28.0 [...] A.D.A. criteria.Please note revised GLUCOSE reference range qvxfmyjyb70/02/2018. 57-Yig-425525:50 CBC W/Diff, Automated Comments: [facility] [address] [place], [address] Absolute Lymph 1.52 {X10_3/ul} (Normal) Range: 0.83-4.51 [...] 4.2-5.4 WBC 6.0 K/mm3 (Normal) Range: 4.4-11.0 80-Crr-75518:00 Lactic Acid Comments: Yes/No query for Sepsis Lactate Rule [facility] [address] [place], [address] LACTIC ACID 2.0 mmol/L (Normal) Range: 0.4-2.0 Comments: Critical Result(s) Called at: 18:33:30 01/24/2018 by:Yohana saenz [facility] 64-Woo-712958:39 TSH (76134) Comments: PATIENT NOT FASTINGPERFORMED BY: [facility]6370 [facility] [id number] BY: [address] [id number] TSH 1.150 {uIU/mL} (Normal) Range: 0.450-4.500 :39 METABOLIC PANEL, Comments: PATIENT NOT FASTINGPERFORMED BY: HibernaterAnthony Ville [address]29070 [facility] [id number] BY: dinCloud[address] [id number] COMPREHENSIVE (39188) ALT (SGPT) 18 [iU]/L (Normal) Range: 0-32 [...] Glucose, Serum 138 mg/dL (Abnormal) Range: 65-99 60-Rye-584146:39 CBC W/AUTO DIFF WBC Comments: PATIENT NOT FASTINGPERFORMED BY: CB [facility] Hrzyii0739 Mckenzie [facility]yesL[facility] [id number] BY: BN [facility] Yugprfhter9238 [facility] [id number] (36193) Immature Grans (Abs) 0.0 {x10E3/uL} (Normal) Range: [...] 3.77-5.28 WBC 6.6 {x10E3/uL} (Normal) Range: 3.4-10.8 11-Zpw-310901:39 TRILEPTAL-OXCARBAZEPINE 857922 Comments: PATIENT NOT FASTINGPERFORMED BY: [facility] Bigckd0818 [facility] Center[facility] [place] [id number] BY: Lab[address] [id number] (50171) Oxcarbazepine 28 ug/mL (Normal) Range: 10-35 Comments: Detection Limit = 1 :39 CALCIFIDIOL (25275) VIT D Comments: PATIENT NOT FASTINGPERFORMED BY: [facility] Gaseyy5581 [facility] Center[facility] [place] [id number] BY: Lab[address] [id number] 25 Vitamin D, 25-Hydroxy 56.3 ng/mL (Normal) Range: 30.0-100.0 Comments: Vitamin D deficiency has been defined by the [place] of[place]icine and an Endocrine Society practice guideline as alevel of serum 25-OH vitamin D less than 20 ng/mL (1,2).The Endocrine Society went on to further define vitamin Dinsufficiency as a level between 21 and 29 ng/mL (2).1. IOM ([place] of Medicine). 2010. Dietary reference intakes for calcium and D. [place]: The National Academies Press.2. Gabbi MF, Singh [place], Pollo JOSEPH, et al. Evaluation, treatment, and prevention of vitamin D deficiency: an Endocrine Society clinical practice guideline. JCEM. 2010; 96(7):1911-30. 09-Xia-369316:39 HGB A1C (54547) Comments: PATIENT NOT FASTINGPERFORMED BY: [facility] Uluosp3122 [facility] [id number] BY: [address] [id number] Hemoglobin A1c 5.7 % (Abnormal) Range: 4.8-5.6 Comments: . Pre-diabetes: 5.7 - 6.4 Diabetes: >6.4 Glycemic control for adults with diabetes: <7.0 :11 THROAT CULTURE (28189) Comments: PATIENT NOT FASTINGPERFORMED BY: [facility] Rarjab3948 [facility] [id number] Information: SRC:TH Result 1 RRF (Normal) Comments: Routine respiratory jasper Upper Respiratory Culture Final report (Normal) :35 CBC W/Diff, Automated Comments: [facility] [address] [place], [place], [address] Absolute Lymph 1.23 {X10_3/ul} (Normal) Range: 0.83-4.51 [...] K/mm3 (Normal) Range: 4.4-11.0 :35 CRP Comments: [facility] [address] [place], [address] C-REACTIVE PROT < 2.90 mg/L (Normal) Range: 0.0-3.0 Comments: C-Reactive Protein (CRP) provides useful information for thediagnosis, therapy and monitoring of inflammatory processesand associated diseases. For the evaluation of Relative Riskfor Cardiovascular Dise ase, a High Sensitivity CRP (HSCRP)should be ordered. 8-Mxp-033707:15 Culture, Nose Comments: [facility] [address] [place], [address] CUN See Note (Normal) Comments: Comments: THICK [...] $ <=20 S(NF) indicates non-formulary drug at [facility]. Ap proval by Infectious Disease Specialist required before non-formulary drugs may be ordered and/or dispensed. Pseudomonas aeroginosa: REACTION Cefepime $ <=1 S Ceftazidime *NF 2 S Ciprofloxacin $ 2 I Gentamicin $ <=1 S Imipenem *NF 1 S Levofloxacin $ 4 I Piperacillin/Tazobactam $$ 8 S Tobramycin $ <=1 S(NF) rocky cates non-formulary drug at [facility]. Approval by Infectious Disease Specialist required before non-formulary drugs may be ordered and/or dispensed. 50-Uei-327826:34 LIPID PANEL (07418) Comments: PATIENT NOT FASTINGPERFORMED BY: CB [facility] Qstddb1282 [facility] [id number] BY: [facility] [address] [id number] LDL/HDL Ratio 1.5 {ratio_units} (Normal) Range: 0.0-3.2 Comments: LDL/HDL Ratio Men Women 1/2 Avg.Risk 1.0 1.5 Av g.Risk 3.6 3.2 2X Avg.Risk 6.2 5.0 3X Avg.Risk 8.0 6.1 LDL Cholesterol Calc 76 mg/dL (Normal) Range: 0-99 VLDL Cholesterol Dirk 17 mg/dL (Normal) Range: 5-40 HDL Cholesterol 50 mg/dL (Normal) Triglycerides 84 mg/dL (Normal) Range: 0-149 Cholesterol, Total 143 mg/dL (Normal) Range: 100-199 04-Scb-793721:34 METABOLIC PANEL, Comments: PATIENT NOT FASTINGPERFORMED BY: CB [facility] Nksnvv4269 [facility] [id number] BY: BN [facility] Zzppwefaul0001 [facility] [id number] COMPREHENSIVE (64969) ALT (SGPT) 20 [iU]/L (Normal) Range: 0-32 [...] Glucose, Serum 137 mg/dL (Abnormal) Range: 65-99 59-Jfb-129001:34 CBC with auto diff Comments: PATIENT NOT FASTINGPERFORMED BY: HARRIET [facility] Jvjecj7190 [address]ck[address] Hansen [place] [id number] BY: LabCo[address] [id number] (27911) Immature Grans (Abs) 0.0 {x10E3/uL} (Normal) Range: [...] 3.77-5.28 WBC 4.5 {x10E3/uL} (Normal) Range: 3.4-10.8 16-Sjo-675141:34 TRILEPTAL-OXCARBAZEPINE 221180 Comments: PATIENT NOT FASTINGPERFORMED BY: [facility]6370 [facility] [id number] BY: Lab[address] [id number] ([address]) Oxcarbazepine 23 ug/mL (Normal) Range: 10-35 Comments: Detection Limit = 1 93-Izy-258578:34 HGB A1C (57095) Comments: PATIENT NOT FASTINGPERFORMED BY: LabCo[place] 0429070 [facility] [id number] BY: LabCo[address] [id number] Hemoglobin A1c 6.1 % (Abnormal) Range: 4.8-5.6 Comments: . Pre-diabetes: 5.7 - 6.4 Diabetes: >6.4 Glycemic control for adults with diabetes: <7.0 18-Dac-236616:34 CALCIFIDIOL (82942) VIT D Comments: PATIENT NOT FASTINGPERFORMED BY: LabCourseHorseAnthony [place] 0429070 [facility] [id number] BY: LabCourseHorse[address] [id number] 25 Vitamin D, 25-Hydroxy 49.1 ng/mL (Normal) Range: 30.0-100.0 Comments: Vitamin D deficiency has been defined by the [place] of[place]icine and an Endocrine Society practice guideline as alevel of serum 25-OH vitamin D less than 20 ng/mL (1,2).The Endocrine Society went on to further define vitamin Dinsufficiency as a level between 21 and 29 ng/mL (2).1. IOM ([place] of Medicine). 2010. Dietary reference intakes for calcium and D. [place]: The National Academies Press.2. Gabbi MF, Singh [place], Pollo JOSEPH, et al. Evaluation, treatment, and prevention of vitamin D deficiency: an Endocrine Society clinical practice guideline. JCEM. 2010; 96(7):1911-30. 23-Xuq-441649:15 Culture, Throat Comments: [facility] [address] [place], [address] CUT See Note (Normal) Comments: Culture, ThroatMixed [...] $ <=20 S(NF) indicates non-formulary drug at [facility]. Approval by Infec tious Disease Specialist required before non-formulary drugs may be ordered and/or dispensed. 38-Gzv-22842:30 Culture, Wound Comments: [facility] [address] [place], [address] CUW See Note (Normal) Comments: Comments: COLLECTED [...] $ <=20 S(NF) indicates non-formulary drug at [facility]. Approval by Infectious Disease Specialist required before non-formulary drugs may be ordered and/or dispensed. Pseudomonas aeroginosa: REACTION Cefepime $ <=1 S Ceftazidime *NF <=1 S Ciprofloxacin $ 0.5 S Gentamicin $ <=1 S Imipenem *NF 1 S Levofloxacin $ 1 S Piperacillin/Tazobactam $$ 8 S Tobramycin $ <=1 S(NF) indicates non-formulary drug at [facility]. Approval b y Infectious Disease Specialist required before non-formulary drugs may be ordered and/or dispensed. :37 Base Excess ISTAT Comments: [place] [address] [place] [address] BE ISTAT 6 mmol/L (Abnormal) :37 Bicarbonate ISTAT Comments: [place] [address] [place] [address] HCO3 ISTAT 30 mmol/L (Abnormal) Range: 22-26 Comments: Site = R BrachialAllens Test = NAMode = A-CDevice = VentFIO2 = 40Results To = ED MDTime Given = 2350MV = 4.5VT = 250RR = 21PEEP = 7 :37 Blood Gas Specimen Type Comments: [place] [address] [place], [place] [address] BLD GAS TYPE ART (Normal) 39-Vhk-160599:37 pCO2 - ISTAT 40.0 {mmHg} (Normal) Comments: [place] [address] [place], [place] [address] Range: 35-45 :37 pH - I-STAT 7.48 (Abnormal) Comments: [place] [address] [place] [address] Range: 7.35-7.45 :37 PO2 I-STAT 65 {mmHG} (Abnormal) Comments: [place] [address] [place] [address] Range: 75-100 18-Gtl-143987:37 SO2 ISTAT 94 % (Abnormal) Comments: [facility] LaboratoryPoint [place] [address] [address] [address] Range: 95-99 12-Nak-088195:37 Total Carbon Dioxide ISTAT Comments: [facility]Point [place] [address] [place] [address] TOTAL CO2 ISTAT 31 mmol/L (Normal) 32-Kdf-490289:55 Basic Metabolic Profile (BMP) Comments: [place] [address] [place], [address] GAP 5 (Normal) Range: 5-15 CO2 [...] Range: 70-110 :55 CBC W/Diff, Automated Comments: [place] [address] [place], [address] Absolute Lymph 1.51 {X10_3/ul} (Normal) Range: 0.83-4.51 [...] 4.2-5.4 WBC 4.6 K/mm3 (Normal) Range: 4.4-11.0 2-Ani-705629:52 Anaerobic and Aerobic Comments: PERFORMED BY: [facility]6370 [facility] [id number] Information: buttock SRC:WO Culture Antimicrobial MIHEAD (Normal) [...] 72 hours. Anaerobic Culture Final report (Normal) 4-Okh-321193:39 CBC With Differential/Platelet Comments: PERFORMED BY: CB [facility] Bhkydk3769 [facility] [id number] BY: BN [facility] [address] [id number] Immature Grans (Abs) 0.0 {x10E3/uL} (Normal) Range: [...] 3.77-5.28 WBC 5.1 {x10E3/uL} (Normal) Range: 3.4-10.8 8-Rka-904945:39 Comp. Metabolic Panel Comments: PERFORMED BY: CB [facility] Htvele3297 [facility] [id number] BY: BN [facility] Qkubsuhkpr4875 [facility] [id number] (14) ALT (SGPT) 27 [iU]/L (Normal) Range: [...] 65-99 :39 Oxcarbazepine (Trileptal),S Comments: PERFORMED BY: [email or web address] [facility] [id number] BY: [address] [id number] Oxcarbazepine 24 ug/mL (Normal) Range: 10-35 Comments: Detection Limit = 1 :39 TSH 1.640 {uIU/mL} Comments: PERFORMED BY: [email or web address] [facility] [id number] BY: [address] [id number] (Normal) Range: 0.450-4.500 :39 Vitamin B12 and Folate Comments: PERFORMED BY: [email or web address] [facility] [id number] BY: Hibernater[address] [id number] Folate (Folic Acid), 8.0 ng/mL (Normal) Comments: A serum folate concentration of less than 3.1 ng/mL isconsidered to represent clinical deficiency. Serum Vitamin B12 1048 pg/mL Range: 211-946 (Abnormal) : Vitamin D, 40.7 ng/mL (Normal) Comments: PERFORMED BY: [facility] [id number] BY: [address] [id number] 39 25-Hydroxy Range: 30.0-100.0 Comments: Vitamin D deficiency has been defined by the [place] of[place] and an Endocrine Society practice guideline as alevel of serum 25-OH vitamin D less than 20 ng/mL (1,2).The Endocrine Society went on to further define vitamin Dinsufficiency as a level between 21 and 29 ng/mL (2).1. IOM ([place] of [place]). 2010. Dietary reference intakes for calcium and D. [place]: The National Academies Press.2. Gabbi MF, Singh MCKEON, Pollo JOSEPH, et al. Evaluation, treatment, and prevention of vitamin D deficiency: an Endocrine Society clinical practice guideline. JCEM. 2010; 96(7):8801-30. 05-Kke-515113:00 Urinalysis, Complete Comments: Order Date: 02/28/16How was Urine Obtained? [facility] [address]zft[address] [place], [place], [id number] MUCUS, URINE RARE {/hpf} (Normal) BACTERIA 0 [...] CLARITY Sl. Cloudy (Normal) COLOR Yellow (Normal) 79-Kqz-417418:00 Basic Metabolic Profile (BMP) Comments: [facility] [address]qx[address] [place], [place], [address] GAP 8 (Normal) Range: 5-15 CO2 26.0 [...] 7-18 GLU 84 mg/dL (Normal) Range: 70-110 72-Ebc-584617:00 CBC W/Diff, Automated Comments: [facility] [address]vi[address] [place], [place], [id number] Absolute Lymph 1.11 {X10_3/ul} (Normal) Range: 0.83-4.51 [...] 4.2-5.4 WBC 5.5 K/mm3 (Normal) Range: 4.4-11.0 71-Gas-450618:00 Lactic Acid Comments: [address] [place], [address] LACTIC ACID 1.6 mmol/L (Normal) Range: 0.4-2.0 :00 Lipase Comments: [address] [place], [address] LIPASE 177 U/L (Normal) Range: 73-393 28-Emn-405105:00 Liver Profile Comments: [address] [place], [address] D BILI 0.08 mg/dL (Normal) Range: 0.00-0.30 [...] (Normal) Range: 6.4-8.2 :30 CDIFF (Molecular) Comments: [address] [place], [id number] CDIFF See Note (Normal) Comments: Cdiff-MolecularC. Diff DNA Negative- No toxigenic C. Diff DNA Detected :30 ENTERIC PATHOGEN PANEL STOOL Comments: [address] [place], [address] EP PANEL See Note (Normal) Comments: EP [...] DetectedRotavirus Not Detected :30 Stool Lactoferrin/WBC Comments: [facility] [address] [place], [place], [address] WBCST See Note (Normal) Comments: Stool Lacto/WBCFecal WBC Lactoferrin Negative: No Fecal WBC Lactoferrin present :30 Stool Occult Blood iFOB Comments: [facility] [address] [place], [address] STOB See Note (Normal) Comments: STOB iFOBOccult Blood Negative 96-Qha-818922:35 Urinalysis, Complete Comments: How was Urine Obtained? [facility] Gfeygauvgy3944 [facility] [place], [address] MUCUS, URINE 0 SEEN {/hpf} [...] (Normal) CLARITY Cloudy (Normal) COLOR Yellow (Normal) :00 CBC W/Diff, Automated Comments: [facility] [address] [place], [address] SMEAR COMMENT SCANNED (Normal) Comments: LYMPHOPENIA NOTED [...] 4.2-5.4 WBC 6.8 K/mm3 (Normal) Range: 4.4-11.0 07-Hob-183818:00 Comprehensive Metabolic Profil Comments: [facility] [address] [place], [place], [address] GAP 9 (Normal) Range: 5-15 CO2 29.0 [...] 7-18 GLU 84 mg/dL (Normal) Range: 70-110 62-Kys-869149:00 Lactic Acid Comments: [facility] [address] [place], [place], [address] LACTIC ACID 2.6 mmol/L (Abnormal) Range: 0.4-2.0 35-Uvg-671338:00 Partial Thromboplast Time Comments: [facility] [address] [place], [place], [address] PTT 26.7 s (Normal) Range: 24.1-36.2 61-Bfd-616219:00 Prothrombin Time w/INR Comments: [facility] [address] [place], [place], [address] INR 1.0 (Normal) PROTIME 13.1 s (Normal) Range: 11.7-14.9 20-Jan-20161:25 PREALBUMIN (16602) Comments: PERFORMED BY: [facility]CoLyons [facility] CenterSuivqg9682 [facility] [id number] Prealbumin 27 mg/dL (Normal) Range: 9-31 Comments: [...] - 36 >70 years 9 - 32 55-Eov-844326:16 Clostridium difficile Toxin Comments: PERFORMED BY: [facility]CoLyons [facility] Medical CenterGulxty6662 [facility] [id number] A+B, EIA (70082) C difficile Toxins A+B, EIA Negative (Normal) 33-Yrh-367071:00 Culture, Urine Comments: [facility] [address] [place], [place], [address] CUUR See Note (Normal) Comments: Urine CultureCulture exhibits no growth. 76-Cpn-097352:00 Urinalysis, Complete Comments: How was Urine Obtained? CLEAN [facility] [address] [place], [place], [address] MUCUS, URINE 0 SEEN {/hpf} (Normal) BACTERIA [...] CLARITY Sl. Cloudy (Normal) COLOR Yellow (Normal) 27-Anq-911857:30 Culture, Urine Comments: [facility] [address] [place], [place], [address] CUUR See Note (Normal) Comments: Urine CultureORGANISM 1: Enterococcus faecalisColony Count >100,000 Enterococcus faecalis: REACTION Ampicillin $ <=2 S Benzylpenicillin NF 2 S Ciprofloxacin $ <=0.5 S Gentamicin SYN-S S Levofloxacin $ 1 S Linezolid $$$$ 2 S Nitrofurantoin $ <=16 S Streptomycin $ SYN- S S Tetracycline NF >=16 R Vancomycin $ 1 S(NF) indicates non-formulary drug at [facility]. Approval by Infectious Disease Specialist required before non-formulary drugs may be ordered and/or dispensed. * CLSI guidelines does not recommend testing of cephalosporins. This interpretation is deduced from Beta-lactam/penicillin results. 90-Onp-698943:30 Urinalysis, Complete Comments: How was Urine Obtained? [facility], [facility] [address] [place], [place], [address] MUCUS, URINE 0 SEEN {/hpf} (Normal) BACTERIA [...] CLARITY Sl. Cloudy (Normal) COLOR Yellow (Normal) 64-Ohw-953920:00 ENTERIC PATHOGEN PANEL STOOL Comments: [facility] [address] [place], [place], [address] EP PANEL See Note (Normal) Comments: RESULTS CALLED TO DR. HOUSTON 09/10/15 @1952 BY THADDEUS.EP PANEL STOOLNot detected for Campylobacter group, Salmonella species, Shigella species, Vibrio Group, Yersinia enterocolitica, EHEC (Shiga Toxin 1, Shiga Toxin 2), Norovirus Gl/Gll, and Rotavirus A. Other common stool pathogens are not detected on this panel include: Aeromonas/Plesiomonas or parasites. Order testing for these organisms separa tely if suspected. This is an amplified DNA test which makes it both specific and sensitive. CAMPYLOBACTER Not DetectedSalmonella Not DetectedShigella sp. Not DetectedShiga Toxin Not DetectedYersinia Not DetectedVIBRIO Not DetectedNorovirus Not DetectedRotavirus Not Detected 74-Bdb-819358:00 Stool Lactoferrin/WBC Comments: [facility] [address] [place], [place], [address] WBCST See Note (Normal) Comments: RESULTS CALLED TO DR. HOUSTON 09/10/15 @3 BY THADDEUS.Stool Lacto/WBCFecal WBC Lactoferrin Negative: No Fecal WBC Lactoferrin present 16-Ecd-440298:00 Stool Occult Blood iFOB Comments: [facility] [address] [place], [place], [address] STOB See Note (Normal) Comments: RESULTS CALLED TO DR. HOUSTON 09/10/15 @3 BY THADDEUS.STOB iFOBOccult Blood Negative 20-Jan-20161:29 CBC with auto diff Comments: PERFORMED BY: CB [facility] Bloyut2982 [facility] [id number] BY: [facility] [address] [id number] ([address]) Immature Grans (Abs) 0.0 {x10E3/uL} (Normal) Range: [...] 3.77-5.28 WBC 4.8 {x10E3/uL} (Normal) Range: 3.4-10.8 20-Jan-20161:29 METABOLIC PANEL, Comments: PERFORMED BY: CB [facility] Foqcce7309 [facility] [id number] BY: [facility] [address] [id number] RUST (01318) ALT (SGPT) 17 [iU]/L (Normal) Range: 0-32 [...] Glucose, Serum 73 mg/dL (Normal) Range: 65-99 :29 CALCIFIDIOL (00868) VIT D Comments: PERFORMED BY: [facility] [id number] BY: [place] 033167 [facility] [id number] 25 Vitamin D, 25-Hydroxy 39.5 ng/mL (Normal) Range: 30.0-100.0 Comments: Vitamin D deficiency has been defined by the [place] of[place] and an Endocrine Society practice guideline as alevel of serum 25-OH vitamin D less than 20 ng/mL (1,2).The Endocrine Society went on to further define vitamin Dinsufficiency as a level between 21 and 29 ng/mL (2).1. IOM ([place] of [place]). 2010. Dietary reference intakes for calcium and D. [place]: The National Academies Press.2. Gabbi MF, Singh MCKEON, Pollo JOSEPH, et al. Evaluation, treatment, and prevention of vitamin D deficiency: an Endocrine Society clinical practice guideline. JCEM. 2010; 96(7):1911-30. :29 TRILEPTAL-OXCARBAZEPINE [id number] Comments: PERFORMED BY: [facility] [place] [id number] BY: [facility] [address] [id number] ([address]) Oxcarbazepine 38 ug/mL (Abnormal) Range: 10-35 Comments: Detection Limit = 1 98-Qis-621899:30 CBC W/Diff, Automated Comments: [facility] [address] [place], [place], [address] Absolute Lymph 0.90 {X10_3/ul} (Normal) Range: 0.83-4.51 [...] 4.2-5.4 WBC 5.2 K/mm3 (Normal) Range: 4.4-11.0 61-Puc-231844:30 Comprehensive Metabolic Profil Comments: [facility] [address] [place], [address] GAP 8 (Normal) Range: 5-15 CO2 26.0 [...] 200 mg/dLsuggests DIABETES MELLITUS per A.D.A. criteria. 94-Uci-884568:30 Lipid Profile Comments: [facility] [address] [place], [address] VLDL 38 mg/dL (Normal) Range: 5-40 LDL [...] 200-240 mg/dL Borderline >240 mg/dL High Risk 03-Btl-755993:30 Prealbumin Comments: [facility] [address] [place], [address] PREALBUMIN 26.0 mg/dL (Normal) Range: 20.0-40.0 05-Onq-826614:30 Thyroid Stim Hormone (TSH) Comments: [facility] [address]tr[address] [place], [address] TSH 1.02 {uIU/mL} (Normal) Range: 0.358-3.74 43-Oel-594699:30 Trileptal-Oxcarbazepine Comments: [facility] (refer to report for specific site)refer to report for address and phone number TRILEPT [id number] 38 ug/mL (Abnormal) Range: 10-35 Comments: Detection Limit = 1Performed at: [facility] [address] [id number] Director: Reji Gibson MD, Phone: [phone] 32-Iyn-354771:30 Vitamin D,25 Hydroxy Comments: [facility] [address] [place], [address] Vitamin D 25-OH 38.4 ng/mL (Normal) Comments: Vitamin D 25(OH) Status Range Deficiency <20 ng/mL (50nmol/L) Insuffciency 20 - 30 ng/mL (50 - 75 nmol/L) Sufficiency 30 - 100 ng/mL (75 - 250 nmol/L) Toxicity >100 ng/mL (>250 nmol/L) 0-Vsh-917178:45 CBC-Complete Blood Cnt No Diff Comments: Test performed at:[facility] [address]uv[address] [place] [address] MPV 10.5 fL (Normal) Range: 6.2-12.0 [...] 4.2-5.4 WBC 6.3 K/mm3 (Normal) Range: 4.4-11.0 9-Jjh-148714:45 Comprehensive Metabolic Profil Comments: Is Patient Taking Vitamins or Folic Acid Supplements? NTest performed at:[facility] [address] [place], [place] [address] GAP 7 (Normal) Range: 5-15 CO2 29.0 [...] <126 mg/dLsuggests IMPAIRED HOMEOSTASIS per A.D.A. criteria. :45 CRP Comments: Is Patient Taking Vitamins or Folic Acid Supplements? NTest performed at:[facility] [address] [place] [address] C-REACTIVE PROT < 2.90 mg/L (Normal) Range: 0.0-3.0 Comments: C-Reactive Protein (CRP) provides useful information for thediagnosis, therapy and monitoring of inflammatory processesand associated diseases. For the evaluation of Relative Riskfor Cardiovascular Dise ase, a High Sensitivity CRP (HSCRP)should be ordered. :45 Erythrocyte Sed Rate Comments: Test performed at:[facility] [address]cv[address] [place] [address] SED RATE 13 mm/h (Normal) Range: 0-20 :45 Folates, (Folic Acid) Comments: Is Patient Taking Vitamins or Folic Acid Supplements? NTest performed at:[facility] [address]zdagox[address] [place] [address] FOLATES 15.70 ng/mL (Normal) Range: 3.1-17.5 :45 Free T3 Comments: Is Patient Taking Vitamins or Folic Acid Supplements? NTest performed at:[facility] [address] [place] [address] FREE T3 2.4 pg/mL (Normal) Range: 2.18-3.98 0-Tny-248038:45 Miscellaneous Lab Procedure Comments: Test(s) Ordered: OXCARBAZEPINE, LC#[id number], RED TOP SERUM/RFTest performed at:[facility] [address] [place] [address] MISC Comments: Oxcarbazepine (Trileptal), S Oxcarbazepine 35 ug/mL Ref: 35 Detection Limit=1 TESTING PERFOR MED AT [facility] (Normal) rp. ORIGINAL REPORT ON FILE IN LAB CONTAINS ADDITIONAL TEST SITE INFORMATION. TEST :45 Prealbumin Comments: Is Patient Taking Vitamins or Folic Acid Supplements? NTest performed at:[facility] [address] [place] [address] PREALBUMIN 30.9 mg/dL (Normal) Range: 20.0-40.0 :45 ,Serum,hCG Quali. Comments: Test performed at:[facility] [address] [place] [address] HCGSQUAL NEGATIVE {Negative} (Normal) Range: 0-9 Nonpreg HCG Qual triggr < 1 m[iU]/mL (Normal) :45 Prolactin Comments: Is Patient Taking Vitamins or Folic Acid Supplements? NTest performed at:[facility] Novsitirff9868 [facility] [place] [address] PROLACTIN 9.5 ng/mL (Normal) Comments: NORMAL REFERENCE RANGES FEMALE NON- 2.2 - 30.3 ng/mL 8.1 - 347.6 ng/mL POST-MENOPAUSAL 0.7 - 3 1.5 ng/mL MALE 2.5 - 17.4 ng/mLNEW TEST METHOD AND REFERENCE RANGES FEBRUARY 01, 2012:45 T4 Free Direct Comments: Is Patient Taking Vitamins or Folic Acid Supplements? NTest performed at:[facility] Usssxwejai6279 [facility] [place] [address] T4 FREE DIRECT 0.74 ng/dL (Abnormal) Range: 0.76-1.46 8-Cox-906790:45 Thyroid Stim Hormone (TSH) Comments: Is Patient Taking Vitamins or Folic Acid Supplements? NTest performed at:[facility] [address] [place] [address] TSH 1.39 {uIU/mL} (Normal) Range: 0.358-3.74 4-Maf-793193:45 Urinalysis, Routine (Dipstick) Comments: How was Urine Obtained? Urine, RandomTest performed at:[facility] [address] [place] [address] LEUK ESTERASE 500 /ul (Abnormal) OCCULT BLOOD-UR Negative /ul (Normal) NITRITE UR Negative (Normal) UROBILI Normal mg/dL (Normal) PROT DIPSTX Negative mg/dL (Normal) pH UR 8.0 (Normal) Range: 5.0 - 8.0 SP.GR. DIPSTX 1.010 (Normal) Range: 1.002-1.030 KETONE UR Negative mg/dL (Normal) BILIRUBIN URINE Negative mg/dL (Normal) GLUCOSE, UR Normal mg/dL (Normal) CLARITY Sl. Cloudy (Normal) COLOR Yellow (Normal) 8-Oqh-119885:45 Vitamin B12 1089 pg/mL (Abnormal) Comments: Test performed at:[facility] [address] [place] [address] Range: 211-911 1-Zdp-451892:45 Vitamin D,25 Hydroxy Comments: Test performed at:[facility] [address] [place] [address] Vitamin D 25-OH 23.9 ng/mL (Normal) Comments: Vitamin D 25(OH) Status Range Deficiency <20 ng/mL (50nmol/L) Insuffciency 20 - 30 ng/mL (50 - 75 nmol/L) Sufficiency 30 - 100 ng/mL (75 - 250 nmol/L) Toxicity >100 ng/mL (>250 nmol/L) 26-Csf-526818:43 ALBUMIN SERUM (74213) Comments: PATIENT NOT FASTINGPERFORMED BY: [facility]CoLy[facility] CenterXomtuw2822 [facility] [id number] Albumin, Serum 4.7 g/dL (Normal) Range: 3.5-5.5 52-Auy-782560:43 PREALBUMIN (67102) Comments: PATIENT NOT FASTINGPERFORMED BY: [facility] [address] [facility] [place] [id number] Prealbumin 29 mg/dL (Normal) Range: 20-40 88-Soe-401872:21 ANJELICA CULTURE-OTHER (35722) Comments: PATIENT NOT FASTINGPERFORMED BY: [facility] Tvhnra9709 [facility] [id number] Information: SRC:THRT [id number] Result 1 RRF (Normal) Comments: Routine respiratory jasper Upper Respiratory Culture Final report (Normal) 24-Gju-109687:43 PROLACTIN (37441) Comments: PATIENT NOT FASTINGPERFORMED BY: [facility] Uoenzj4716 [facility] [id number] Prolactin 13.8 ng/mL (Normal) Range: 4.8-23.3 88-Xol-826935:43 T3, FREE (TRIDOTHYRONINE) (21356) Comments: PATIENT NOT FASTINGPERFORMED BY: [facility] Ooxpcv7333 [facility] [id number] Triiodothyronine,Free,Serum 3.3 pg/mL (Normal) Range: 2.0-4.4 92-Vgn-635502:43 T4, FREE (THYROXINE) (22182) Comments: PATIENT NOT FASTINGPERFORMED BY: [facility] Ktfenk5374 [facility] [id number] T4,Free(Direct) 1.14 ng/dL (Normal) Range: 0.82-1.77 24-Qyf-265123:43 TSH (09647) Comments: PATIENT NOT FASTINGPERFORMED BY: [facility] Hwncda1312 [facility] [id number] Information: [id number] TSH 1.580 {uIU/mL} (Normal) Range: 0.450-4.500 32-Bqw-991002:00 CBCD ANC 1.8 {X10_3/uL} (Abnormal) Range: 2.0-7.7 [...] CDIFF See Note (Normal) Comments: FAXED TO OH9.062 C. Diff DNA Positive-Toxigenic C. Difficile DNA Detected : CUST SHIGA See Note (Normal) CULST See [...] spora, or Mi crosporidia. TESTING PERFORMED AT [facility]. ORIGINAL REPORT ON FILE IN LAB CONTAINS ADDITIONAL TEST SITE INFORMATION. Ova/Parasite Exam NO OVA, CYSTS, OR PARASITES FOUND. :30 STOB See Note (Normal) Comments: Occult Blood Negative : WBCST See Note (Normal) Comments: Fecal WBC Lactoferrin Negative: No Fecal WBC Lactoferrin present :15 CDIFF See Note (Normal) Comments: C. Diff DNA Negative- No toxigenic C. Diff DNA Detected :55 Oxcarbazepine (Trileptal),S Comments: PERFORMED BY: [facility] [address] [id number] BY: [address] [id number] Oxcarbazepine 32 ug/mL (Normal) Range: 10-35 Comments: Detection Limit = 1 :55 CALCIFIDIOL (26019) VIT D Comments: PERFORMED BY: [employer]70 [facility] [id number] BY: [address] [id number] 25 Vitamin D, 25-Hydroxy 27.4 ng/mL (Abnormal) Range: 30.0-100.0 Comments: Vitamin D deficiency has been defined by the [place] of[employer] and an Endocrine Society practice guideline as alevel of serum 25-OH vitamin D less than 20 ng/mL (1,2).The Endocrine Society went on to further define vitamin Dinsufficiency as a level between 21 and 29 ng/mL (2).1. IOM ([place] of [employer]). 2010. Dietary reference intakes for calcium and D. [place]: The National Academies Press.2. Gabbi MF, Singh MCKEON, Pollo JOSEPH, et al. Evaluation, treatment, and prevention of vitamin D deficiency: an Endocrine Society clinical practice guideline. JCEM. 2010; 96(7):1911-30. 0-Oea-822542:55 Folate (14206) Comments: PERFORMED BY: [facility]ib[facility] Dfxzra2049 [facility] [id number] BY: [address] [id number] Folate (Folic Acid), Serum 16.3 ng/mL (Normal) Comments: A serum folate concentration of less than 3.1 ng/mL isconsidered to represent clinical deficiency. 5-Emw-830165:55 VITAMIN B-12 (CYANOCOBALAMIN) Comments: PERFORMED BY: [facility]ib[facility] Paskpf6132 [facility] [id number] BY: [address] [id number] (47514) Vitamin B12 889 pg/mL (Normal) Range: 211-946 2-Pdl-940129:55 TSH (70537) Comments: PERFORMED BY: [facility] Xjcsxd7196 [facility] [id number] BY: [address] [id number] TSH 1.670 {uIU/mL} (Normal) Range: 0.450-4.500 :55 SED RATE ERYTHROCYTE Comments: PERFORMED BY: [facility]ib[facility] Xoicho4853 [facility] [id number] BY: [address] [id number] (33971) Sedimentation Rate-Westergren 6 mm/h (Normal) Range: 0-32 0-Dft-564453:55 METABOLIC PANEL, Comments: PERFORMED BY: [facility]ib[facility]ater Eluvym1346 [facility] [id number] BY: [address] [id number] COMPREHENSIVE (80155) ALT (SGPT) 11 [iU]/L (Normal) Range: 0-32 [...] cells when received.This may adversely affect serumChemistries. 1-Gea-527644:55 C-REACTIVE PROTEIN (30744) Comments: PERFORMED BY: [email or web address] [facility] [id number] BY: [address] [id number] C-Reactive Protein, Quant 0.9 mg/L (Normal) Range: 0.0-4.9 :55 CBC (AUTO) (26653) Comments: PERFORMED BY: [email or web address] [facility] [id number] BY: [address] [id number] Platelets 213 {x10E3/uL} (Normal) Range: 140-415 Comments: [...] of these values in the reference population. 2-Kbo-513181:29 ANJELICA CULTURE-OTHER (06124) Comments: PATIENT NOT FASTINGPERFORMED BY: [facility] [id number] Information: SRC:THRPili [id number] Result 1 RRF (Normal) Comments: Routine respiratory jasper Upper Respiratory Culture Final report (Normal) 0-Dav-665717:03 Rapid Strep Test, Office (18455) Rapid Strep Test, Negative (Normal) Office 42-Xkn-445906:55 CDIF See Note (Normal) Comments: A positive [...] in these cases. C. DIFF ANTIGENS POSITIVE 45-Nht-005401:30 CDIF See Note (Normal) Comments: RESULTS CALLED [...] in these cases. C. DIFF ANTIGENS POSITIVE :00 CDIF See Note (Normal) Comments: A positive [...] these cases. C. DIFF ANTIGENS NEGATIVE :55 [facility] Culture exhibits no growth. (Normal) :55 UA UMUC 0 SEEN {/hpf} (Normal) UBAC 0 [...] (Abnormal) UCLAR CLEAR (Normal) UCOL STRAW (Normal) :05 C DIF TOXIN/AG See Note (Normal) Comments: C. DIFF ANTIGENS NEGATIVE :2 TRILEPT [id number] 20 ug/mL (Normal) Range: 10-35 4 Comments: Detection Limit = 1Performed at: [facility] [id number] Director: Reji Gibson MD, Phone: [phone] 03-Hvi-144755:1 C DIF TOXIN/AG See Note (Normal) Comments: RESULTS CALLED TO 06/23/112004 VONDA ELAM.REPORT READ BACK BY SAME . * This is an amended result. * A 5 prior result that was reported as final has been changed.06/23/112004 by IESHAPreviously reported as: C. DIFF ANTIGENS POSITIVE 57-Qdf-427694:46 COMP METABOLIC GAP 11 (Normal) Range: 5-15 [...] amount of Staphylococcus aureusor yeast-like organisms isolated. 09-Rse-18412:00 C DIF TOXIN/AG See Note (Normal) Comments: C. DIFF ANTIGENS POSITIVE :21 C DIF TOXIN/AG See Note (Normal) Comments: [...] Cyclospora, or Microspo ridia. TESTING PERFORMED AT [facility]. ORIGINAL REPORT ON FILE IN LAB CONTAINS ADDITIONAL TEST SITE INFORMATION. OVA/ PARASITES EXAM NO OVA, CYSTS, OR PARASITES FOUND. :21 WBC,STOOL See Note (Normal) Comments: RESULTS CALLED TO OFFICE TO ALEXSANDRA07/17/10 115KRISTIAN DAWSON.REPORT READ BACK BY SAME . Comments: FECAL WBCs NONE SEEN 98-Guq-90086:20 C DIF TOXIN/AG See Note (Normal) Comments: COPY OF REPORT SENT TO INFECTION CONTROL 06/25/10 PADMINI.RESULTS CALLED TO CHRISTEN 06/25/10 1432 CRISTA BUSTAMANTE [...] Cyclospora, or Microspo ridia. TESTING PERFORMED AT [facility]. ORIGINAL REPORT ON FILE IN LAB CONTAINS ADDITIONAL TEST SITE INFORMATION. OVA/ PARASITES EXAM NO OVA, CYSTS, OR PARASITES FOUND. :20 WBC,STOOL See Note (Normal) Comments: FECAL WBCs NONE SEEN 28-Sze-112568:14 C DIF TOXIN See Note (Normal) 71-Vvn-897943:44 O AND P See Note (Normal) Comments: OVA AND PARASITES EXAM, ROUTINE These results were obtained using wet preparation(s) and trichrome stained smear. This test does not include testing for Crytosporidium parvum, Cyclospora, or Microspo ridia. TESTING PERFORMED AT [facility]. ORIGINAL REPORT ON FILE IN LAB CONTAINS ADDITIONAL TEST SITE INFORMATION. OVA/ PARASITES EXAM NO OVA, CYSTS, OR PARASITES FOUND. :44 OCCULT BLD,iFOB See Note (Normal) Comments: OCCULT BLOOD Negative :48 C DIF TOXIN See Note (Normal) Comments: C. DIFF TOXINS A&B NEGATIVE : CUL STOOL/SHIG CULTURE, STOOL See Note (Normal) Comments: No Salmonella, Shigella, Yersinia or Campylobacter isolated.No significant amount of Staphylococcus aureusor yeast-like organisms isolated. SHIGA-TOXIN See Note (Normal) Comments: SHIGA-TOXIN 1 & 2 SHIGA TOXIN 1 AND SHIGA TOXIN 2 NOT DETECTED : M100.1850 CULST See Note (Normal) Comments: No [...] Cyclospora, or Microspo ridia. TESTING PERFORMED AT [facility]. ORIGINAL REPORT ON FILE [...] :00 TSH 1.63 {uIU/mL} (Normal) Range: 0.358-3.74 :00 CULTURE, SPUTUM GRAM STAIN See Note (Normal) Comments: GRAM STAIN RARE WHITE BLOOD CELLS RARE GRAM POSITIVE COCCI RARE GRAM NEGATIVE RODS Plan of Care Name Dates Details Instructions Type II diabetes mellitus, well controlled : Continue Current Prescription(s) Indication: Type II diabetes mellitus, well controlled Convulsions : Reviewed Education Nurse Letter Indication: Convulsions Neuromuscular scoliosis : Follow [...] Cystitis, acute Planned Observations URINE ANJELICA CULTURE-IDENTIFICATN (40951)Indication: Abnormal urine On: 1-Mrq-425018:25 Request MRSA Culture ([id number])Indication: Thick sputum On: 6-Gfx-798736:32 Request Anaerobic & Aerobic Culture (28856)Indication: Thick sputum On: 18-Lby-181760:46 Request Comments: collected from trachea stoma Anaerobic & Aerobic Culture (90199)Indication: Cellulitis of groin, right On: 9-Uuf-493358:44 Request TRILEPTAL-OXCARBAZEPINE [id number] (02919)Indication: Diarrhea On: 0-Poe-645682:24 Request VITAMIN B12 AND FOLATES (72662)Indication: Diarrhea On: 5-Jpi-005830:24 Request CALCIFEDIOL (89905)Indication: Diarrhea On: 9-Iez-543206:24 Request CALCIFEDIOL (26998)Indication: Diarrhea On: 7-Heo-885151:23 Request TSH (THYROID STIMULATING HORMONE) (01845)Indication: Diarrhea On: : Request METABOLIC PANEL, COMPREHENSIVE (06836)Indication: Diarrhea On: : Request CBC, PLATELETS & AUT DIFF (51610)Indication: Diarrhea On: : Request OVA & PARASITE DIR SMEAR (34503)Indication: Diarrhea On: :46 Request ANJELICA CULTURE-STOOL (33448)Indication: Diarrhea On: :46 Request OCCULT BLOOD FECES SCREEN (20709)Indication: Diarrhea On: :46 Request LEUKOCYTE COUNT, FECAL (39415)Indication: Diarrhea On: :46 Request C-DIFFICILE, STOOL (56826)Indication: Diarrhea On: :46 Request OVA & PARASITE DIR SMEAR (97323)Indication: C. difficile diarrhea On: :50 Request OCCULT BLOOD FECES SCREEN (43521)Indication: C. difficile diarrhea On: :50 Request ANJELICA CULTURE-STOOL (29450)Indication: C. difficile diarrhea On: :50 Request LEUKOCYTE COUNT, FECAL (60167)Indication: C. difficile diarrhea On: :50 Request C-DIFFICILE, STOOL (50733)Indication: C. difficile diarrhea On: :49 Request Clostridium difficile Culture (10360)Indication: Diarrhea On: 8-Jas-473615:52 Request URINALYSIS, W/ MICRO (56836)Indication: Dysuria On: :56 Request URINE ANJELICA CULTURE-SISSY COL COUNT (85824)Indication: Dysuria On: :54 Request OCCULT BLOOD FECES SCREEN (74926)Indication: Diarrhea On: :01 Request LEUKOCYTE COUNT, FECAL (56592)Indication: Diarrhea On: :05 Request ANJELICA CULTURE-STOOL (62446)Indication: Diarrhea On: :05 Request Clostridium difficile Toxin A+B, EIA (17447)Indication: Diarrhea On: :05 Request TRILEPTAL-OXCARBAZEPINE 899527 (40943)Indication: Convulsions On: 95-Vwc-301334:55 Request PREALBUMIN (91870)Indication: Nutritional assessment On: :45 Request CALCIFIDIOL (86408) VIT D 25Indication: Vitamin D deficiency On: :44 Request TSH (29924)Indication: Hypertension On: :44 Request METABOLIC PANEL, COMPREHENSIVE (90695)Indication: Hypertension On: :44 Request LIPID PANEL (75800)Indication: Hypertension On: :44 Request CBC with auto diff (20464)Indication: Hypertension On: :44 Request Metabolic Panel, Basic (50646)Indication: Abnormal urine On: :03 Request VITAMIN B12 AND FOLATES (95582)Indication: Abnormal urine On: :03 Request CALCIFEDIOL (42397)Indication: Abnormal urine On: :03 Request Comments: vit d3 URINE ANJELICA CULTURE-SISSY COL COUNT (89972)Indication: Abnormal urine On: 1-Dyo-523758:52 Request TRILEPTAL-OXCARBAZEPINE 392870 (63771)Indication: Cerebral palsy On: 14-Lvq-557018:46 Request HCG Qualitative, Serum (89307)Indication: Amenorrhea On: 10-Opd-478598:45 Request PROLACTIN (01379)Indication: Amenorrhea On: 09-Xht-515839:44 Request PREALBUMIN (79479)Indication: Cerebral palsy On: 74-Edq-313848:43 Request URINALYSIS (36088)Indication: Fatigue On: 87-Sjx-658323:43 Request T3, FREE (TRIDOTHYRONINE) (08531)Indication: Fatigue On: :43 Request T4, FREE (THYROXINE) (11365)Indication: Fatigue On: :43 Request Folate (39693)Indication: Fatigue On: 03-Yxe-231640:42 Request CALCIFIDIOL (59654) VIT D 25Indication: Fatigue On: :42 Request VITAMIN B-12 (CYANOCOBALAMIN) (01165)Indication: Fatigue On: 00-Jrs-761430:42 Request TSH (88469)Indication: Fatigue On: :42 Request SED RATE ERYTHROCYTE (27696)Indication: Fatigue On: :42 Request METABOLIC PANEL, COMPREHENSIVE (22812)Indication: Fatigue On: :42 Request C-REACTIVE PROTEIN (51517)Indication: Fatigue On: :42 Request CBC (AUTO) (88975)Indication: Fatigue On: :42 Request CULTURE,BODY FLUID (71867)Indication: Irregular Menstrual Cycle (Renamed from Irregular bleeding) On: 08-Ofu-106571:07 Request Comments: urine Rapid Strep Test, Office (83149)Indication: Pharyngitis, acute On: 69-Rox-437551:51 Request Urinalysis, Office (30718)Indication: Fatigue On: 69-Yvj-919315:49 Request HgA1C , Office (22333)Indication: Hyperglycemia On: :41 Request CALCIFIDIOL (03315) VIT D 25Indication: Vitamin D deficiency On: 80-Wrv-215768:32 Request TRILEPTAL-OXCARBAZEPINE 222638 (71984)Indication: Convulsions On: :31 Request Metabolic Panel, Comprehensive (52714)Indication: Acute renal failure On: :31 Request CBC with manual diff (28044)Indication: Hypertension On: :31 Request CBC with manual diff (18997)Indication: Thrombocytopenia, unspecified On: :35 Request Comments: in citrate tube FIBRINOGEN (97259)Indication: Thrombocytopenia, unspecified On: :35 Request PTT (Activated Partial Thromboplastin Time) (47044)Indication: Thrombocytopenia, unspecified On: :35 Request PT (Prothrobim Time) (29351)Indication: Thrombocytopenia, unspecified On: :35 Request HEPATITIS C ANTIBODY (70767)Indication: Thrombocytopenia, unspecified On: :35 Request HEPATITIS B CORE ANTBD-IGG/IGM (11339)Indication: Thrombocytopenia, unspecified On: :35 Request HEPATITIS B SURFACE ANTIGEN (06129)Indication: Thrombocytopenia, unspecified On: :35 Request HEPATITIS B SURFACE ANTIBODY (72452)Indication: Thrombocytopenia, unspecified On: :35 Request Methylmalonic acid, serum 32948Jxxhsmaxev: Thrombocytopenia, unspecified On: :35 Request Vitamin B-12 (cyanocobalamin) (28442)Indication: Thrombocytopenia, unspecified On: :35 Request Sed Rate Erythrocyte (28917)Indication: Thrombocytopenia, unspecified On: :35 Request Metabolic Panel, Comprehensive (38389)Indication: Thrombocytopenia, unspecified On: :35 Request JENNY (ANTINUCLEAR ANTIBODY) (23758)Indication: Thrombocytopenia, unspecified On: : Request CBC with manual diff (22453)Indication: Convulsions On: 32-Bwq-810545:31 Request Clostridium difficile Toxin A+B, EIA (94507)Indication: Diarrhea On: :31 Request OVA & PARASITE DIR SMEAR (03557)Indication: Diarrhea On: :44 Request OCCULT BLOOD FECES SCREEN (26224)Indication: Diarrhea On: :44 Request LEUKOCYTE COUNT, FECAL (31091)Indication: Diarrhea On: :44 Request ANJELICA CULTURE-STOOL (23765)Indication: Diarrhea On: :44 Request Clostridium difficile Toxin A+B, EIA (39987)Indication: Diarrhea On: 36-Hvc-992510:22 Request C DIFF AMPLIFIED PROBE (56861)Indication: Diarrhea On: 22-Pzf-82156:51 Request Metabolic Panel, Comprehensive (83386)Indication: Acute renal failure On: :08 Request Comments: recheck prior to August. CALCIFIDIOL (37856) VIT D 25Indication: Vitamin D deficiency On: : Request Comments: recheck prior to August. TRILEPTAL-OXCARBAZEPINE [id number] (40513)Indication: Convulsions On: :08 Request Culture, Stool (56399)Indication: Diarrhea On: :01 Request C DIFF AMPLIFIED PROBE (54049)Indication: Diarrhea On: 77-Dim-792245:01 Request C DIFF AMPLIFIED PROBE (52901)Indication: Diarrhea On: 61-Csn-282150:32 Request C DIFF AMPLIFIED PROBE (34533)Indication: Diarrhea On: 40-Wmo-558921:51 Request URINE ANJELICA CULTURE-IDENTIFICATN (53006)Indication: Backache On: :58 Request URINALYSIS (26971)Indication: Backache On: 0-Pfa-488787:58 Request Metabolic Panel, Comprehensive (08993)Indication: Profound mental retardation (Renamed from IQ under 20) On: 6-Wor-213339:25 Request Comments: Dr Pino neurologist at [facility] CBC (Auto) (04820)Indication: Profound mental retardation (Renamed from IQ under 20) On: 3-Chy-672769:25 Request TRILEPTAL-OXCARBAZEPINE 394560 (68206)Indication: Cerebral palsy On: 4-Bwp-428144:24 Request COLUMN CHROMATOGRAPHY, SISSY, SINGLE (08095)Indication: Convulsions On: 58-Djz-861805:54 Request Comments: trileptal [id number] Clostridium difficile Toxin A+B, EIA (76574)Indication: Diarrhea On: 11-Zeh-219572:26 Request CBC (Auto) (57708)Indication: Convulsions On: 44-Bxm-643290:25 Request Metabolic Panel, Comprehensive (73349)Indication: Convulsions On: 83-Kaq-245226:24 Request ANJELICA CULTURE-OTHER (79618)Indication: Pharyngitis, acute On: 6-Djh-776831:44 Request C.Difficile, Stool (32648)Indication: Diarrhea On: 72-Fkq-516703:48 Request ANJELICA CULTURE-STOOL (22032)Indication: Diarrhea On: :55 Request C.Difficile, Stool (12165)Indication: Diarrhea On: :54 Request LEUKOCYTE COUNT, FECAL (69194)Indication: Diarrhea On: 90-Kvg-890865:27 Request OVA & PARASITE DIR SMEAR (01210)Indication: Diarrhea On: :27 Request C.Difficile, Stool (94799)Indication: Diarrhea On: 67-Oze-900322:27 Request ANJELICA CULTURE-STOOL (54498)Indication: Diarrhea On: 16-Fqw-626068:27 Request TSH (18773)Indication: Unspecified bacterial pneumonia On: :48 Request CBC, Platelets & Auto Diff (10862)Indication: Unspecified bacterial pneumonia On: :48 Request Magnesium (88663)Indication: Unspecified bacterial pneumonia On: :48 Request Phosphorus (12412)Indication: Unspecified bacterial pneumonia On: :48 Request Metabolic Panel, Basic (68932)Indication: Unspecified bacterial pneumonia On: :48 Request Planned Encounters Medical; 4 Month FU - On: 10-Oct-2018 13:15 [facility] Sandra Bermudez DO, DO, Kathleen Planned Procedures Flu Vaccine (Quadrivalent) On: 06-Jun-2018 Intent 92213Eo: Sandra Bermudez DO Comments: Lot #[id number]-L dltd, IMDose prefilled syringegiven by:MARICARMEN Santana reviewed and ABN signed Sandra Bermudez DO Flu Vaccine (Quadrivalent) On: 02-Aug-2017 Intent 60981Rm: Sandra Bermudez DO Comments: Lot:[id number]:12/29Amt:0.5mlRoute:IMSite: Rt DltdGiven By: ALFREDITO James signed Sandra Bermudez DO Flu Vaccine (Quadrivalent) On: 14-May-2016 Intent 22795Th: Roe Baxter MD Comments: Lot #[id number]/30/17ite-L dltd, IMDose prefilled syringegiven by:ALFREDITO Goldberg and ABN signed ADMINISTRATION OF INFLUENZA On: 02-Aug-2015 Intent VIRUS VACCINE (G0008)By: Linda Houston MD Flu Vaccine (Quadrivalent) On: 02-Aug-2015 Intent 07172Jr: Linda Houston MD Comments: Lot #:[id number] date:Amount given:0.5mlRoute: IMSite given:L DltdGiven by: Jessica BASSETT and ABN signed Quad Flu ELECTROCARDIOGRAM, COMPLETE On: 21-Mar-2015 Intent (ECG) (46428)By: Linda Houston MD CT - Brain/Head (IV Contrast On: 29-Nov-2014 Intent Needed)By: Linda Houston MD ADMINISTRATION OF INFLUENZA On: 06-Aug-2014 Intent VIRUS VACCINE (G0008)By: TIMBO Villegas Flu Vaccine (Quadrivalent) On: 06-Aug-2014 Intent 05763Gd: TIMBO Villegas Comments: Lot #:[id number] date:mount given:0.5mlRoute: IM Site given:Given by: to be given per patient home health nurse CATHETERIZE FOR URINE SPEC On: 09-Mar-2014 Intent (P9612)By: Linda Houston MD Comments: pls use pediatric cath- and fax results to [phone] SPECIMEN HNDLNG/TRNSPRT, OFFC > On: 09-Mar-2014 Intent LAB (39112)By: Linda Houston MD IMMUNIZ ADMNIN, 1 VAC, On: 28-Jul-2013 Intent SNGL/COMBO (35571)By: Archie BOLDEN, Comments: Lot #[id number] to nurse for admin Jessica Stack FLU VAC, SPLIT, >3 YEARS, On: 28-Jul-2013 Intent INTRAMUSC (82792)By: Jessica Almanza LPN L SPECIMEN HNDLNG/TRNSPRT, OFFC > On: 18-May-2013 Intent LAB (70531)By: Linda Houston MD Eprescribed prescriptions On: 18-May-2013 Intent (G8553)By: Jessica Almanza LPN FLU VAC, SPLIT, >3 YEARS, On: 23-Jun-2011 Intent INTRAMUSC (85081)By: Archie BOLDEN, Comments: Lot #[id number]-L arm, IMDose prefilledgiven by:Jessica Stack IMMUNIZ ADMNIN, 1 VAC, On: 23-Jun-2011 Intent SNGL/COMBO (29702)By: Jessica Almanza LPN Instructions Name Dates Details [...] Indication: Cerebral palsy Encounters Phone Encounter On: 27-Jun-2018 15:20 Encounter Diagnosis: [...] for the procedure will be Dr Beck [facility] [place] [place]. The chief complaint is teeth cleanin [...]
--- OUTSIDE RECORDS SUMMARY | 2018-10-08 11:22 | XMS RPT_ITS | Continuity of Care Document ---
:1990 Author Organization [facility] Address [address] [place] [address] Phone Care Team Providers Name Role Phone [...] 0 days Quantity: 30 {Capsule} Refills: 3 Ordered:14-Mar-2018 Karin Bermudez DO, DO, Kathleen Start : 14-Mar-2018 Active AeroChamber Mini Chamber Device 1 (one) [...] 0 days Quantity: 500 {Milliliter} Refills: 5 Ordered:09-Jun-2018 Karin Bermudez DO, DO, Kathleen Start : 09-Jun-2018 Active EasyGluco Plus In Vitro Strip 1 [...] Propionate 50 MCG/ACT Nasal Suspension 2 (two) Geismar(s) Geismar(s) each nostril qd for 90 days Quantity: 1 {QS} Refills: 3 Ordered:16-Sep-2017 Karin Bermudez DO, DO, Kathleen Start : 16-Sep-2017 Active HumaLOG KwikPen 100 UNIT/ML Subcutaneous Solution Pen-injector 2 (two) Unit with meals for 30 days Quantity: 1 {Pre-filled_Pen_Syringe} Refills: 5 Ordered:27-Jun-2018 Karin Bermudez DO, DO, Kathleen Start : 27-Jun-2018 Active Lantus SoloStar 100 UNIT/ML Subcutaneous Solution Pen-injector 6 Unit bid for 30 days Quantity: 1 {Box} Refills: 3 Ordered:23-Jun-2018 Karin Bermudez DO, DO, Kathleen Start : 23-Jun-2018 Active Miconazole Nitrate 2 % External Cream 1 (one) Cream Cream three times daily for 10 days Quantity: 1 {Tube} Refills: 1 Ordered:14-May-2016 Daisy Pineda LPN Start : 14-May-2016 Active NAPHCON-A, 0.025-0.3% (Ophthalmic Solution) 1-2 gtt gtt up to qid prn for redness/itching for 0 days Quantity: 1 {Each} Refills: 0 Ordered:20-Jan-2016 Linda Houston MD Start : 20-Jan-2016 Active Nyamyc 343842 UNIT/GM External Powder uad Powder to affected area(s) bid and prn for 0 days Quantity: 15 {Bottle} Refills: 6 Ordered:19-Nov-2017 Karin Bermudez DO, DO, Kathleen Start : 19-Nov-2017 End : 17-Nov-2013 Active Nystatin 548795 UNIT/GM External Cream uad Cream to affected area(s) bid prn for 7 days Quantity: 1 {Bottle} Refills: 3 Ordered:03-Jun-2018 Karin Bermudez DO, DO, Kathleen Start : 03-Jun-2018 Active Nystatin 388249 UNIT/ML Mouth/Throat Suspension 5 ml ml 5 times day for 10 days Quantity: 250 {Milliliter} Refills: 9 Ordered:03-Apr-2016 Jessica Almanza LPN Start : 03-Apr-2016 Active Nystatin Powder 1 Powder Powder tid for 10 days Quantity: 1 {Bottle} Refills: 3 Ordered:28-Jun-2017 Karin Bermudez DO, DO, Kathleen Start : 28-Jun-2017 Active Pen [place] 31G X 5 MM Miscellaneous 1 (one) Misc Misc qd for 0 days Quantity: 1 {Box} Refills: 11 Ordered:10-Jun-2018 Daisy Pineda LPN Start : 10-Jun-2018 Active SODIUM CHLORIDE, 2.5MEQ/ML (Injection Solution) uad Solution [...] Quantity: 30 {Tablet} Refills: 6 Ordered:21-Mar-2015 Long KIMI Jessica L Start : 22-May-2013 Active Xopenex [...] qid for 7 days Refills: 0 Ordered:26-Feb-2010 Katia JOHNSTON Jasmin Start : 19-Feb-2010 End : 26-Feb-2010 Inactive Comments:QS KETOCONAZOLE, 2% (External Cream) apply to skin rash 1-2 times daily prn for 0 days Refills: 0 Ordered:23-Jun-2011 Long INSOLE RASPER, Jessica L End : 23-Jun-2011 Inactive LevoFLOXacin 25 MG/ML Oral Solution 1 (one) Solution 500mg daily for 7 days Quantity: 3500 {Milligram} Refills: 0 Ordered:17-Feb-2017 Katia JOHNSTON Liliam Gordon Start : 17-Feb-2017 End : 24-Feb-2017 Inactive LIDOCAINE, 5% (External Ointment) Ointment uad for 0 days Quantity: 1 {Ointment} Refills: 3 Ordered:14-Jan-2012 TIMBO Villegas Start : 13-Jun-2009 End : 14-Jan-2012 Inactive LUNESTA, 1MG (Oral Tablet) 1 qd (crushed or dissolved) for 0 days Refills: 0 Ordered:23-Jun-2011 Long INSOLE RASPER, Jessica L End : 23-Jun-2011 Inactive MUCINEX FOR KIDS, 100MG/5ML (Oral Liquid) Liquid 15 cc tid 14 days for 0 days Refills: 0 Ordered:23-Jun-2011 Long INSOLE RASPER, Jessica L Start : 13-Jun-2009 End : [...] Quantity: 30 {Packet} Refills: 2 Ordered:15-May-2016 Long INSOLE RASPER, Jessica L Start : 14-May-2016 End : [...] 1 {Box} Refills: 5 Ordered:10-Jun-2018 Daisy Pineda INSOLE RASPER Start : 08-Jun-2018 End : 10-Jun-2018 Inactive [...] nostril qd for 0 days Quantity: 1 {Geismar} Refills: 3 Ordered:09-Apr-2015 Linda Houston MD Start : 09-Apr-2015 End : 20-Jan-2016 Discontinued Comments:This order discontinued per [employer]. MUCOMYST, 20% (Inhalation Solution) 1 bid/prn for 0 days Refills: 0 Ordered:23-Jun-2011 Long INSOLE RASPER, Jessica L End : 23-Jun-2011 Discontinued Comments:This order discontinued per [employer]. VYTONE, 1-1% (External Cream) Cream bid for 0 days Quantity: 1 {Cream} Refills: 3 Ordered:13-Jun-2009 Long INSOLE RASPER, Jessica L Start : 13-Jun-2009 End : [...] Comments: See Note; NOTES: [facility] [address] [place] [address] OFFICE VISIT Date of Service: 05/25/18 MR#: [id number] Acct: [id number] Name: MANDY MONTERO Rickey Rep #: [id number] : 1990 Provider: Lawrence Weiner MD Age/Sex: 28/F [place] [facility] Status: Signed Assessment AND Plan Problems 1. [...] Summary Result: Comments: See Note; NOTES: [facility] Medical Records Department [address] [place] [address] Emergency Department Summary 01/24/18 1645 MR#: [id number] Acct: [id number] Name: MANDY MONTERO Rep #: [id number] : 1990 27 From: Stephan Hughes MD [...] Discharged to home Impression: 1. Cellulitis left vaan k region 2. Dysuria of unknown etiology 3. History of MRDD 4. History of Propulsid 5. History of chronic respiratory failure on ventilator This note was generated with Equity[employer] dictation software. It m ay contain incorrect [...] Instructions: Mandy prescription was electronically transmitted to [place] [facility], [facility] What to do if you have Problems For any increased pain, shortness of breath, bleeding, nausea or vomiting, chest pain, or any unexpected problems, contact your Primary Care Provider. Call [facility] ([phone]) or report to the closest Emergency Room. Call 911 if necessary. 01/24/18 7793 <Electronically signed by Stephan Hughes MD> Date Stephan Mahoney Signature (If Indicated): Date CC: Sandra Bermudez DO 10-Dec-2017 Pulmonary Visit Report Result: Comments: See Note; NOTES: [facility] [place] [address] [place] [address] OFFICE VISIT Date of Service: 12/09/17 MR#: [id number] Acct: [id number] Name: MANDY MONTERO Rep #: [id number] : 1990 Provider: Lawrence Weiner MD Age/Sex: 27/F [place] [facility] Status: Signed Assessment AND Plan 1. Chronic [...] PO Q4H PRN #473 ml 12/09/17 [Rx] [facility] Medical History Pneumonia (Resolved) Cerebral palsy (Chronic) [...] Comments: See Note; NOTES: [facility] [place] [address] [place] [address] OFFICE VISIT Date of Service: 09/02/17 MR#: [id number] Acct: [id number] Name: MANDY MONTERO Rep #: [id number] : 1990 Provider: Lawrence Weiner MD Age/Sex: 27/F Location: [facility] Status: Signed Assessment AND Plan 1. Spastic [...] mg (10 mL) PO QDAY PRN allergy [id number] .2 Ok to give through PEG Follow [...] a cot with her mother and healthcare veterinary technician assistant. Family reports the patient has [...] Lawrence Weiner MD> Date Lawrence Weiner MD [facility] Signature: Date (if applicable) CC: Sandra Bermudez DO 10-Mar-2017 Emergency Department Summary Result: Comments: See Note; NOTES: [facility] Medical Records Department [address] [place] [address] Emergency Department Summary MR#: [id number] Acct: [id number] Name: MANDY MONTERO Rep #: [id number] : 1990 26 From: Flip Jessica MD PCP: Sandra Bermudez DO Status: DEP ER DATE OF SERVICE: 03/06/2017 CHIEF COMPLAINT: [...] . Flip Jessica MD T: NTS JOB: [id number] 03/10/17805 <Electronically signed by Flip Jessica MD> Date Flip Jessica MD Cosigner Signat ure (If Indicated): Date CC: Sandra Bermudez DO Date Dictated: 03/06/171722 Date Transcribed: 03/06/171722 Assembling Fabricator: Signed 06-Mar-2017 Discharge Instruction Result: Comments: See Note; NOTES: [facility] Medical Records Department [address] [place] [address] Discharge Instruction 03/06/171719 MR#: [id number] Acct: [id number] Name: ROMELIA MONTERO ANABELA Lang Rep #: [id number] : 1990 26 From: Flip Jessica MD [...] problems, contact your Primary Care Provider. Call [facility] ([phone]) or report to the closest Emergency Room. Call 911 if necessary. 03/06/17 1720 <Electronically signed by Flip Jessica MD> Date Flip Jessica MD Cosigner Signature (If Indicated): Date CC: Sandra Bermudez DO 06-Mar-2017 Chest 1 View Result: Comments: See Note; NOTES: [facility] Imaging Services [address] [place] [address] Verdana 4d Chest 1 View MR#: [id number] Acct: [id number] Name: MANDY MONTERO Rep #: [id number] : 1990 F 26 From: Merritt Bolton MD PCP: Sandra Bermudez DO Status: REG ER Study: Chest 1 View Date of Exam: 03/06/17 Exam# [id number] Ordering Dr: Flip Jessica MD STUDY: X-RAY [...] CC: Flip Jessica MD; Sandra Bermudez DO Assembling Fabricator: Signed 06-Mar-2017 Thoracic Spine 3 Views Result: Comments: See Note; NOTES: [facility] Imaging Services [address] [place] [address] Verdana 4d Thoracic Spine 3 Views MR#: [id number] Acct: [id number] Name: MANDY MONTERO Rep # : [id number] : 1990 F 26 From: Merritt Bolton MD PCP: Sandra Bermudez DO Status: REG ER Study: Thoracic Spine 3 Views Date of Exam: 03/06/17 Exam# [id number] Ordering Dr: Flip Jessica MD TERESA DY: [...] CC: Flip Jessica MD; Sandra Bermudez DO Assembling Fabricator: Signed 10-Sep-2016 Chest 1 View (Portable) Result: Comments: See Note; NOTES: [facility] Imaging Services [address] [place] [address] Verdana 4d Chest 1 View (Portable) MR#: [id number] Acct: [id number] Name: MIGUELMANDY A Rep #: [id number] : 1990 F 26 From: Mandy Chávez MD PCP: Sandra Bermudez DO Status: PRE ER Study: Chest 1 View (Portable) Date of Exam: 09/10/16 Exam# [id number] Ordering Dr: Vinnie Sher MD STUDY: X-RAY [...] MD at 23:49 EST , Service support [phone], CC: Linden Sher MD; Sandra Bermudez DO Assembling Fabricator: Signed 12-Mar-2016 Emergency Department Summary Result: Comments: See Note; NOTES: [facility] Medical Records Department [address] [place] [address] Emergency Department Summary MR#: [id number] Acct: [id number] Name: MANDY MONTERO Rep #: [id number] : 1990 25 From: Joseph Mcgee MD [...] Baxter Date Dictated: 02/29/16112 Date Transcribed: 02/29/16112 Assembling Fabricator: Signed 28-Feb-2016 Discharge Instruction Result: Comments: See Note; NOTES: [facility] Medical Records Department [address] [place] [address] Discharge Instruction 02/28/161925 MR#: [id number] Acct: [id number] Name: MANDY MONTERO Rep #: [id number] : 1990 25 From: Joseph Mcgee MD [...] problems, contact your doctor. Call Doctors Registry ([phone]) or report to the closest Emergency Room. Call 911 if necessary. [phone] <Electronically signed by Joseph Mcgee MD> Date Joseph Mcgee MD Cosigner Signature (If Indicated): Date ___ CC: Roe Baxter 28-Feb-2016 Abdomen/Pelvis without Cont Result: Comments: See Note; NOTES: [facility] Imaging Services [address] [place] [address] Verdana 4d Abdomen/Pelvis without Cont MR#: [id number] Acct: [id number] Name: MANDY MONTERO Rep #: [id number] : 1990 F 25 From: Seymour Villagomez MD PCP: Roe Baxter Status: REG ER Study: Abdomen/Pelvis without Cont Date of Exam: 02/28/16 Exam# [id number] Ordering Dr: Joseph Patton MD STUDY: CT [...] MD at 18:47 EDT , Service support [phone], CC: Roe Baxter; Joseph Mcgee MD Assembling Fabricator: Signed 25-Feb-2016 Emergency Department Summary Result: Comments: See Note; NOTES: [facility] Medical Records Department [address] [place] [address] Emergency Department Summary MR#: [id number] Acct: [id number] Name: MANDY MONTERO Rep #: [id number] : 1990 From: Tomás Willis MD PCP: [...] C: Roe Baxter MD T: NTS JOB: [id number] 02/25/167 <Electronically signed by Tomás Willis MD> Date Tomás Willis MD Cosigner Signature (If Indicated): Date CC: Roe Baxter Date Dictated: 02/23/16 152 Date Transcribed: 02/23/161520 Assembling Fabricator: Signed 23-Feb-2016 Discharge Instruction Result: Comments: See Note; NOTES: [facility] Medical Records Department [address] [place] [address] Discharge Instruction 02/23/164 MR#: [id number] Acct: [id number] Name: MIGUELMANDY Rickey Rep #: [id number] : 1990 25 From: Tomás Willis MD PCP: Roe Baxter Status: REG ER ED Disposition - Plan for ED Patient: Disposition: Home or Assisted Living Chief C omplaint: Rash Instructions: ED Theresa Skin Infection (Adult) Prescriptions: Fluconazole [Diflucan] 100 mg PO DAILY #7 tablet Nystatin [Mycostatin] 1 applic TOPICAL TID #1 tube Referrals: Anabela aBxter [Primary Care Provider] - 2 Days Additional Instructions: follow up with your doctor. return with problems. What to do if you have Problems For any increased pain, shortness of breath, blee ding, nausea or vomiting, chest pain, or any unexpected problems, contact your doctor. Call Doctors Registry ([phone]) or report to the closest Emergency Room. Call 911 if necessary. [phone] <Electronically signed by Tomás Willis MD> Date Tomás Willis MD Cosigner Signature (If Indicated): Date CC: Roe Baxter 28-Jan-2016 Chest 1 View (Portable) Result: Comments: See Note; NOTES: [facility] Imaging Services [address] [place] [address] Verdana 4d Chest 1 View (Portable) MR#: [id number] Acct: [id number] Name: MANDY ACUNA Rep #: [id number] : 1990 F 25 From: Abdirahman Awad MD PCP: Linda Houston MD Status: PRE ER Study: Chest 1 View (Portable) Date of Exam: 01/28/16 Exam# [id number] Ordering Dr: Edita Willis MD STUDY: X-RAY [...] MD at 22:53 EDT , Service support [phone], RAD/Chest 1 View (Portable) IMPRESSION: Retrocar diac density in left lower lobe possibly representing atelectasis or infiltrate. Recommend lateral view for further assessment Electronically Signed: Abdirahman Awad MD at 22:53 EDT , Service support [phone], CC: Linda Houston MD; Tomás Willis MD Assembling Fabricator: Signed Family History Unknown Family Member Name Dates Details She was adopted at 5 months Status: Active Social History Name Dates Details Current Work/Study Status Comments: Disabled Status: Active Exercise History Comments: Inactive Status: [facility] Status: Active No Caffeine Use Status: Active No Drug Use Status: Active Non Drinker/No Alcohol Use Status: Active Non Smoker/No Tobacco Use Status: Active Vital Signs Date Test Result Details 18-Xyq-890160:15 Pulse 104 /min Comments: Pattern: Regular O2 [...] Results Date Description Value Details :37 TSH (96759) Comments: PATIENT NOT FASTINGPERFORMED BY: [employer] [address] [id number] BY: Bumble [employer] [id number] TSH 1.030 {uIU/mL} (Normal) Range: 0.450-4.500 :37 T4, FREE (THYROXINE) Comments: PATIENT NOT FASTINGPERFORMED BY: [employer] [id number] BY: [employer]umble [employer] [id number] (10728) T4,Free(Direct) 0.84 ng/dL (Normal) Range: 0.82-1.77 :37 T3, FREE (TRIDOTHYRONINE) Comments: PATIENT NOT FASTINGPERFORMED BY: [employer] Wjkoyw7192 [facility] [id number] BY: [employer] [id number] (39541) Triiodothyronine (T3), Free 2.6 pg/mL (Normal) Range: 2.0-4.4 98-Jcu-724752:37 CALCIFIDIOL (27446) VIT D Comments: PATIENT NOT FASTINGPERFORMED BY: [place] 3725370 [facility] [id number] BY: [address] [id number] 25 Vitamin D, 25-Hydroxy 42.6 ng/mL (Normal) Range: 30.0-100.0 Comments: Vitamin D deficiency has been defined by the [place] of[facility] Medical Centercine and an Endocrine Society practice guideline as alevel of serum 25-OH vitamin D less than 20 ng/mL (1,2).The Endocrine Society went on to further define vitamin Dinsufficiency as a level between 21 and 29 ng/mL (2).1. IOM ([place] of Medicine). 2010. Dietary reference intakes for calcium and D. [place]: The National Academies Press.2. Gabbi MF, Singh MCKEON, Pollo JOSEPH, et al. Evaluation, treatment, and prevention of vitamin D deficiency: an Endocrine Society clinical practice guideline. JCEM. 2010; 96(7):1911-30. 45-Iqd-299144:37 TRILEPTAL-OXCARBAZEPINE 980918 Comments: send results to dr delgado too; PATIENT NOT FASTINGPERFORMED BY: [place] BeezJust[place] 4444670 [facility] [id number] BY: [address] [id number] (51137) Oxcarbazepine 49 ug/mL (Abnormal) Range: 10-35 Comments: Detection Limit = 1 48-Ujh-110879:37 CBC with auto diff Comments: send results to dr sandy storm; PATIENT NOT FASTINGPERFORMED BY: [facility] HospitalfotobabbleJustin [place] 4444670 [facility] [id number] BY: [address] [id number] (29801) Immature Grans (Abs) 0.0 {x10E3/uL} (Normal) Range: [...] 3.77-5.28 WBC 6.3 {x10E3/uL} (Normal) Range: 3.4-10.8 83-Glg-405807:37 METABOLIC PANEL, Comments: send results to dr delgado too; PATIENT NOT FASTINGPERFORMED BY: CB [facility] Dmiole1803 [facility] [id number] BY: [facility] [address] [id number] [facility] (02730) ALT (SGPT) 38 [iU]/L (Abnormal) Range: 0-32 [...] 6-20 Glucose 237 mg/dL (Abnormal) Range: 65-99 53-Ezs-936892:37 HGB A1C (96785) Comments: PATIENT NOT FASTINGPERFORMED BY: CB [facility] Vvpuir5720 [facility] [id number] BY: BN [facility] [address] [id number] Hemoglobin A1c 6.3 % (Abnormal) Range: 4.8-5.6 Comments: . Prediabetes: 5.7 - 6.4 Diabetes: >6.4 Glycemic control for adults with diabetes: <7.0 12-Iez-778834:00 Urinalysis, Complete Comments: How was Urine Obtained? [facility]CIMENW[facility] [address] [place], [place], [id number] MUCUS, URINE 0 SEEN {/hpf} (Normal) BACTERIA [...] (Abnormal) CLARITY Clear (Normal) COLOR Yellow (Normal) 79-Uxp-495544:50 Basic Metabolic Profile (BMP) Comments: [facility] [address] [place], [place], [address] GAP 8 (Normal) Range: 5-15 CO2 28.0 [...] A.D.A. criteria.Please note revised GLUCOSE reference range shtydjron02/02/2018. 76-Pby-943082:50 CBC W/Diff, Automated Comments: [facility] [address] [place], [place], [address] Absolute Lymph 1.52 {X10_3/ul} (Normal) Range: 0.83-4.51 [...] 4.2-5.4 WBC 6.0 K/mm3 (Normal) Range: 4.4-11.0 69-Pic-16636:00 Lactic Acid Comments: Yes/No query for Sepsis Lactate Rule [facility] [address] [place], [address] LACTIC ACID 2.0 mmol/L (Normal) Range: 0.4-2.0 Comments: Critical Result(s) Called at: 18:33:30 01/24/2018 by:[facility]ana [facility]raph[facility] 26-Oeg-932083:39 TSH (87862) Comments: PATIENT NOT FASTINGPERFORMED BY: LabCoAtlantiCare [facility] Medical Center, Main[facility] CampusBlashs0983 [facility] [id number] BY: Bumble BeezEric [place] 192267 [facility] [id number] TSH 1.150 {uIU/mL} (Normal) Range: 0.450-4.500 :39 METABOLIC PANEL, Comments: PATIENT NOT FASTINGPERFORMED BY: Copyright Agent Dbqmvc6217 [facility] [id number] BY: Bumble Beez[address] [id number] COMPREHENSIVE (76591) ALT (SGPT) 18 [iU]/L (Normal) Range: 0-32 [...] Glucose, Serum 138 mg/dL (Abnormal) Range: 65-99 :39 CBC W/AUTO DIFF WBC Comments: PATIENT NOT FASTINGPERFORMED BY: [employer]6370 [address] [facility] [place] [id number] BY: Bumble Beez[address] [id number] (42729) Immature Grans (Abs) 0.0 {x10E3/uL} (Normal) Range: [...] 3.77-5.28 WBC 6.6 {x10E3/uL} (Normal) Range: 3.4-10.8 94-Jml-936919:39 TRILEPTAL-OXCARBAZEPINE 168701 Comments: PATIENT NOT FASTINGPERFORMED BY: LabMclaren Caro Region6370 [facility] [id number] BY: [employer] [id number] (61056) Oxcarbazepine 28 ug/mL (Normal) Range: 10-35 Comments: Detection Limit = 1 :39 CALCIFIDIOL (62385) VIT D Comments: PATIENT NOT FASTINGPERFORMED BY: [facility] Fyfdny7866 [facility] [id number] BY: [employer] [id number] 25 Vitamin D, 25-Hydroxy 56.3 ng/mL (Normal) Range: 30.0-100.0 Comments: Vitamin D deficiency has been defined by the [place] ofMedicine and an Endocrine Society practice guideline as alevel of serum 25-OH vitamin D less than 20 ng/mL (1,2).The Endocrine Society went on to further define vitamin Dinsufficiency as a level between 21 and 29 ng/mL (2).1. IOM ([place] of Medicine). 2010. Dietary reference intakes for calcium and D. [place]: The National Academies Press.2. Gabbi MF, Singh [place], Pollo JOSEPH, et al. Evaluation, treatment, and prevention of vitamin D deficiency: an Endocrine Society clinical practice guideline. JCEM. 2010; 96(7):1911-30. 21-Frx-479912:39 HGB A1C (05693) Comments: PATIENT NOT FASTINGPERFORMED BY: [facility] Vmidzt4472 [facility] [id number] BY: [employer] [id number] Hemoglobin A1c 5.7 % (Abnormal) Range: 4.8-5.6 Comments: . Pre-diabetes: 5.7 - 6.4 Diabetes: >6.4 Glycemic control for adults with diabetes: <7.0 :11 THROAT CULTURE (05627) Comments: PATIENT NOT FASTINGPERFORMED BY: [facility] Mvdmad8015 [facility] [id number] Information: SRC:TH Result 1 RRF (Normal) Comments: Routine respiratory jasper Upper Respiratory Culture Final report (Normal) :35 CBC W/Diff, Automated Comments: [facility] [address] [place], [place], [address] Absolute Lymph 1.23 {X10_3/ul} (Normal) Range: 0.83-4.51 [...] 4.2-5.4 WBC 4.9 K/mm3 (Normal) Range: 4.4-11.0 68-Uui-361111:35 CRP Comments: [facility] [address] [place], [address] C-REACTIVE PROT < 2.90 mg/L (Normal) Range: 0.0-3.0 Comments: C-Reactive Protein (CRP) provides useful information for thediagnosis, therapy and monitoring of inflammatory processesand associated diseases. For the evaluation of Relative Riskfor Cardiovascular Dise ase, a High Sensitivity CRP (HSCRP)should be ordered. 7-Fkx-513355:15 Culture, Nose Comments: [facility] [address] [place], [address] CUN See Note (Normal) Comments: Comments: THICK [...] $ <=20 S(NF) indicates non-formulary drug at [facility]. Ap proval by Infectious Disease Specialist required before non-formulary drugs may be ordered and/or dispensed. Pseudomonas aeroginosa: REACTION Cefepime $ <=1 S Ceftazidime *NF 2 S Ciprofloxacin $ 2 I Gentamicin $ <=1 S Imipenem *NF 1 S Levofloxacin $ 4 I Piperacillin/Tazobactam $$ 8 S Tobramycin $ <=1 S(NF) rocky cates non-formulary drug at [facility]. Approval by Infectious Disease Specialist required before non-formulary drugs may be ordered and/or dispensed. 25-Ayh-727200:34 LIPID PANEL (39308) Comments: PATIENT NOT FASTINGPERFORMED BY: CB [facility] Pjsazv2670 [facility] [id number] BY: [facility] [address] [id number] LDL/HDL Ratio 1.5 {ratio_units} (Normal) Range: 0.0-3.2 Comments: LDL/HDL Ratio Men Women 1/2 Avg.Risk 1.0 1.5 Av g.Risk 3.6 3.2 2X Avg.Risk 6.2 5.0 3X Avg.Risk 8.0 6.1 LDL Cholesterol Calc 76 mg/dL (Normal) Range: 0-99 VLDL Cholesterol Dirk 17 mg/dL (Normal) Range: 5-40 HDL Cholesterol 50 mg/dL (Normal) Triglycerides 84 mg/dL (Normal) Range: 0-149 Cholesterol, Total 143 mg/dL (Normal) Range: 100-199 11-Rqq-681516:34 METABOLIC PANEL, Comments: PATIENT NOT FASTINGPERFORMED BY: CB [facility] Rxortq7280 [facility] [id number] BY: BN [facility] Oyfdqcjypz9332 [facility] [id number] [facility] ([address]) ALT (SGPT) 20 [iU]/L (Normal) Range: 0-32 [...] Glucose, Serum 137 mg/dL (Abnormal) Range: 65-99 54-Itg-053952:34 CBC with auto diff Comments: PATIENT NOT FASTINGPERFORMED BY: [employer]umble [employer] Uymqvo8047 [facility] [id number] BY: [facility] [id number] (10659) Immature Grans (Abs) 0.0 {x10E3/uL} (Normal) Range: [...] 3.77-5.28 WBC 4.5 {x10E3/uL} (Normal) Range: 3.4-10.8 21-Jmd-925824:34 TRILEPTAL-OXCARBAZEPINE [id number] Comments: PATIENT NOT FASTINGPERFORMED BY: B[facility] BeezAtlantiCare [facility] Medical Center[facility] Main[facility] CampusWvgkun1845 [facility] [id number] BY: Bumble Beez[address] [id number] (01285) Oxcarbazepine 23 ug/mL (Normal) Range: 10-35 Comments: Detection Limit = 1 32-Vga-033671:34 HGB A1C (94777) Comments: PATIENT NOT FASTINGPERFORMED BY: LabfotobabbleJustin [place] 4444670 [facility] [id number] BY: Lab[address] [id number] Hemoglobin A1c 6.1 % (Abnormal) Range: 4.8-5.6 Comments: . Pre-diabetes: 5.7 - 6.4 Diabetes: >6.4 Glycemic control for adults with diabetes: <7.0 33-Uqq-398043:34 CALCIFIDIOL (23926) VIT D Comments: PATIENT NOT FASTINGPERFORMED BY: LabfotobabbleAtlantiCare Regional Medical Center, Mainland CampusPcubro8625 [facility] [id number] BY: Bumble Beez[address] [id number] 25 Vitamin D, 25-Hydroxy 49.1 ng/mL (Normal) Range: 30.0-100.0 Comments: Vitamin D deficiency has been defined by the [place] ofMedicine and an Endocrine Society practice guideline as alevel of serum 25-OH vitamin D less than 20 ng/mL (1,2).The Endocrine Society went on to further define vitamin Dinsufficiency as a level between 21 and 29 ng/mL (2).1. IOM ([place] of Medicine). 2010. Dietary reference intakes for calcium and D. [place]: The National Academies Press.2. Gabbi MF, Singh [place], Twin-Bhanu JOSEPH, et al. Evaluation, treatment, and prevention of vitamin D deficiency: an Endocrine Society clinical practice guideline. JCEM. 2010; 96(7):1911-30. 67-Drd-168587:15 Culture, Throat Comments: [facility] [address] [place], [address] CUT See Note (Normal) Comments: Culture, ThroatMixed [...] $ <=20 S(NF) indicates non-formulary drug at [facility]. Approval by Infec tious Disease Specialist required before non-formulary drugs may be ordered and/or dispensed. 68-Lmq-23933:30 Culture, Wound Comments: [facility] [address] [place], [address] CUW See Note (Normal) Comments: Comments: COLLECTED [...] $ <=20 S(NF) indicates non-formulary drug at [facility]. Approval by Infectious Disease Specialist required before non-formulary drugs may be ordered and/or dispensed. Pseudomonas aeroginosa: REACTION Cefepime $ <=1 S Ceftazidime *NF <=1 S Ciprofloxacin $ 0.5 S Gentamicin $ <=1 S Imipenem *NF 1 S Levofloxacin $ 1 S Piperacillin/Tazobactam $$ 8 S Tobramycin $ <=1 S(NF) indicates non-formulary drug at [facility]. Approval b y Infectious Disease Specialist required before non-formulary drugs may be ordered and/or dispensed. :37 Base Excess ISTAT Comments: [place] [address] [place] [address] BE ISTAT 6 mmol/L (Abnormal) :37 Bicarbonate ISTAT Comments: [place] [address] [place] [address] HCO3 ISTAT 30 mmol/L (Abnormal) Range: 22-26 Comments: Site = R BrachialAllens Test = NAMode = A-CDevice = VentFIO2 = 40Results To = ED MDTime Given = 2350MV = 4.5VT = 250RR = 21PEEP = 7 :37 Blood Gas Specimen Type Comments: [place] [address] [place] [address] BLD GAS TYPE ART (Normal) :37 pCO2 - ISTAT 40.0 {mmHg} (Normal) Comments: [place] [address] [place] [address] Range: 35-45 43-Lyi-377565:37 pH - I-STAT 7.48 (Abnormal) Comments: [place] [address] [place] [address] Range: 7.35-7.45 :37 PO2 I-STAT 65 {mmHG} (Abnormal) Comments: [place] [address] [place] [address] Range: 75-100 23-Syr-882503:37 SO2 ISTAT 94 % (Abnormal) Comments: [facility]Point [facility] [place] [address] [place] [address] Range: 95-99 21-Moq-815812:37 Total Carbon Dioxide ISTAT Comments: [facility] LaboratoryPoint [place] [address] [place] [address] TOTAL CO2 ISTAT 31 mmol/L (Normal) 12-Lga-182736:55 Basic Metabolic Profile (BMP) Comments: [place] [address] [place], [address] GAP 5 (Normal) Range: 5-15 CO2 [...] Range: 70-110 :55 CBC W/Diff, Automated Comments: [facility] [address]xur[address] [place], [address] Absolute Lymph 1.51 {X10_3/ul} (Normal) Range: [...] 4.2-5.4 WBC 4.6 K/mm3 (Normal) Range: 4.4-11.0 4-Sld-083595:52 Anaerobic and Aerobic Comments: PERFORMED BY: LabMclaren [facility] Region6370 [facility] [id number] Information: buttock SRC:WO Culture Antimicrobial MIHEAD (Normal) [...] 72 hours. Anaerobic Culture Final report (Normal) 4-Yfi-036002:39 CBC With Differential/Platelet Comments: PERFORMED BY: CB [facility] Hnjmix9470 [facility] [id number] BY: BN [facility] [address] [id number] Immature Grans (Abs) 0.0 {x10E3/uL} (Normal) Range: [...] 3.77-5.28 WBC 5.1 {x10E3/uL} (Normal) Range: 3.4-10.8 3-Geg-815246:39 Comp. Metabolic Panel Comments: PERFORMED BY: CB [facility] Cmccmx7104 [facility] [id number] BY: BN [facility] Tzdpexgcuy4867 [facility] [id number] (14) ALT (SGPT) 27 [iU]/L (Normal) Range: [...] 65-99 :39 Oxcarbazepine (Trileptal),S Comments: PERFORMED BY: Bumble Beez [employer] [facility] [id number] BY: [address] [id number] Oxcarbazepine 24 ug/mL (Normal) Range: 10-35 Comments: Detection Limit = 1 :39 TSH 1.640 {uIU/mL} Comments: PERFORMED BY: [employer] [facility] [id number] BY: [address] [id number] (Normal) Range: 0.450-4.500 :39 Vitamin B12 and Folate Comments: PERFORMED BY: [employer] [facility] [id number] BY: [address] [id number] Folate (Folic Acid), 8.0 ng/mL (Normal) Comments: A serum folate concentration of less than 3.1 ng/mL isconsidered to represent clinical deficiency. Serum Vitamin B12 1048 pg/mL Range: 211-946 (Abnormal) : Vitamin D, 40.7 ng/mL (Normal) Comments: PERFORMED BY: [employer]umble Beez Moncgh8937 [facility] [id number] BY: [address] [id number] 39 25-Hydroxy Range: 30.0-100.0 Comments: Vitamin D deficiency has been defined by the [place] ofMedicine and an Endocrine Society practice guideline as alevel of serum 25-OH vitamin D less than 20 ng/mL (1,2).The Endocrine Society went on to further define vitamin Dinsufficiency as a level between 21 and 29 ng/mL (2).1. IOM ([place] of Medicine). 2010. Dietary reference intakes for calcium and D. [place]: The National Academies Press.2. Gabbi MF, Singh [place], Pollo JOSEPH, et al. Evaluation, treatment, and prevention of vitamin D deficiency: an Endocrine Society clinical practice guideline. JCEM. 2010; 96(7):1911-30. 53-Sbl-387428:00 Urinalysis, Complete Comments: Order Date: 02/28/16How was Urine Obtained? CATHETER SPECIMENWUniversity [facility]als [facility] [address]pp[address] [place], [place], [id number] MUCUS, URINE RARE {/hpf} (Normal) BACTERIA 0 [...] CLARITY Sl. Cloudy (Normal) COLOR Yellow (Normal) 67-Hwf-313312:00 Basic Metabolic Profile (BMP) Comments: [facility] [address]fol[address]hejk[address] [place], [place], [id number] GAP 8 (Normal) Range: 5-15 CO2 26.0 [...] 7-18 GLU 84 mg/dL (Normal) Range: 70-110 75-Ykc-468005:00 CBC W/Diff, Automated Comments: [facility] [address] [place], [place], [id number] Absolute Lymph 1.11 {X10_3/ul} (Normal) Range: 0.83-4.51 [...] 4.2-5.4 WBC 5.5 K/mm3 (Normal) Range: 4.4-11.0 35-Apa-380588:00 Lactic Acid Comments: [address] [place], [address] LACTIC ACID 1.6 mmol/L (Normal) Range: 0.4-2.0 29-Tzu-825980:00 Lipase Comments: [address] [place], [address] LIPASE 177 U/L (Normal) Range: 73-393 53-Lkc-639512:00 Liver Profile Comments: [address] [place], [address] D BILI 0.08 mg/dL (Normal) Range: [...] (Normal) Range: 6.4-8.2 :30 CDIFF (Molecular) Comments: [address] [place], [address] CDIFF See Note (Normal) Comments: Cdiff-MolecularC. Diff DNA Negative- No toxigenic C. Diff DNA Detected :30 ENTERIC PATHOGEN PANEL STOOL Comments: [address] [place], [id number] EP PANEL See Note (Normal) Comments: EP [...] DetectedRotavirus Not Detected :30 Stool Lactoferrin/WBC Comments: [address], [id number] WBCST See Note (Normal) Comments: Stool Lacto/WBCFecal WBC Lactoferrin Negative: No Fecal WBC Lactoferrin present :30 Stool Occult Blood iFOB Comments: [address], [id number] STOB See Note (Normal) Comments: STOB iFOBOccult Blood Negative 48-Jrw-141112:35 Urinalysis, Complete Comments: How was Urine Obtained? CATHETER SPECIMENW[address], [address] MUCUS, URINE 0 SEEN {/hpf} (Normal) [...] (Normal) CLARITY Cloudy (Normal) COLOR Yellow (Normal) 23-Atb-061200:00 CBC W/Diff, Automated Comments: [facility] [address] [place], [address] SMEAR COMMENT [...] 4.2-5.4 WBC 6.8 K/mm3 (Normal) Range: 4.4-11.0 20-Dkj-886175:00 Comprehensive Metabolic Profil Comments: [facility] [address]wh[address] [place], [place], [id number] GAP 9 (Normal) Range: 5-15 CO2 29.0 [...] 7-18 GLU 84 mg/dL (Normal) Range: 70-110 91-Xaw-966054:00 Lactic Acid Comments: [facility] [address]xzr[address] [place], [address] LACTIC ACID 2.6 mmol/L (Abnormal) Range: 0.4-2.0 41-Qqz-155449:00 Partial Thromboplast Time Comments: [facility] [address]fs[address] [place], [place], [address] PTT 26.7 s (Normal) Range: 24.1-36.2 72-Mgk-344156:00 Prothrombin Time w/INR Comments: [facility] [address] [place], [place], [address] INR 1.0 (Normal) PROTIME 13.1 s (Normal) Range: 11.7-14.9 20-Jan-20161:25 PREALBUMIN (17640) Comments: PERFORMED BY: LabCoAtlantiCare [facility] Medical Center, Main[facility] CampusGznref1844 [facility] [id number] Prealbumin 27 mg/dL (Normal) Range: 9-31 Comments: [...] - 36 >70 years 9 - 32 28-Jcc-628114:16 Clostridium difficile Toxin Comments: PERFORMED BY: LabCoAtlantiCare [facility] Medical [facility], Main[facility] CampusAnxted7251 [facility] [id number] A+B, EIA (70272) C difficile Toxins A+B, EIA Negative (Normal) 06-Tze-340576:00 Culture, Urine Comments: [facility] [address] [place], [place], [address] CUUR See Note (Normal) Comments: Urine CultureCulture exhibits no growth. 65-Foo-971872:00 Urinalysis, Complete Comments: How was Urine Obtained? CLEAN [facility] [address] [place], [place], [address] MUCUS, URINE 0 SEEN {/hpf} (Normal) BACTERIA [...] CLARITY Sl. Cloudy (Normal) COLOR Yellow (Normal) 79-Gzv-084912:30 Culture, Urine Comments: [facility] [address]wp[address] [place], [address] CUUR See Note (Normal) Comments: Urine CultureORGANISM 1: Enterococcus faecalisColony Count >100,000 Enterococcus faecalis: REACTION Ampicillin $ <=2 S Benzylpenicillin NF 2 S Ciprofloxacin $ <=0.5 S Gentamicin SYN-S S Levofloxacin $ 1 S Linezolid $$$$ 2 S Nitrofurantoin $ <=16 S Streptomycin $ SYN- S S Tetracycline NF >=16 R Vancomycin $ 1 S(NF) indicates non-formulary drug at [facility]. Approval by Infectious Disease Specialist required before non-formulary drugs may be ordered and/or dispensed. * CLSI guidelines does not recommend testing of cephalosporins. This interpretation is deduced from Beta-lactam/penicillin results. 52-Hks-027099:30 Urinalysis, Complete Comments: How was Urine Obtained? Urine, [facility]WUniversity [facility] [address] [place], [address] MUCUS, URINE 0 SEEN {/hpf} (Normal) BACTERIA [...] CLARITY Sl. Cloudy (Normal) COLOR Yellow (Normal) 44-Gvz-458785:00 ENTERIC PATHOGEN PANEL STOOL Comments: [facility] [address] [place], [place], [address] EP PANEL See Note (Normal) Comments: RESULTS CALLED TO DR. HOUSTON 09/10/15 @1952 BY THADDEUS.EP PANEL STOOLNot detected for Campylobacter group, Salmonella species, Shigella species, Vibrio Group, Yersinia enterocolitica, EHEC (Shiga Toxin 1, Shiga Toxin 2), Norovirus Gl/Gll, and Rotavirus A. Other common stool pathogens are not detected on this panel include: Aeromonas/Plesiomonas or parasites. Order testing for these organisms separ[facility] if suspected. This is an amplified DNA test which makes it both specific and sensitive. CAMPYLOBACTER Not DetectedSalmonella Not DetectedShigella sp. Not DetectedShiga Toxin Not DetectedYersinia Not DetectedVIBRIO Not DetectedNorovirus Not DetectedRotavirus Not Detected 91-Kqk-784175:00 Stool Lactoferrin/WBC Comments: [facility] [address] [place], [place], [address] WBCST See Note (Normal) Comments: RESULTS CALLED TO DR. HOUSTON 09/10/15 @3 BY THADDEUS.Stool Lacto/WBCFecal WBC Lactoferrin Negative: No Fecal WBC Lactoferrin present 15-Vxt-307543:00 Stool Occult Blood iFOB Comments: [facility] [address]dpco[address] [place], [place], [address] STOB See Note (Normal) Comments: RESULTS CALLED TO DR. HOUSTON 09/10/15 @3 BY THADDEUS.STOB iFOBOccult Blood Negative 20-Jan-20161:29 CBC with auto diff Comments: PERFORMED BY: [facility] Hrfqdp9647 [facility] [id number] BY: [facility] [address] [id number] (53112) Immature Grans (Abs) 0.0 {x10E3/uL} (Normal) Range: [...] 3.4-10.8 :29 METABOLIC PANEL, Comments: PERFORMED BY: CB [facility] Qlrgdu8017 [facility] [id number] BY: BN [facility] [address] [id number] COMPREHENSIVE (79547) ALT (SGPT) 17 [iU]/L (Normal) Range: 0-32 [...] 73 mg/dL (Normal) Range: 65-99 :29 CALCIFIDIOL (23118) VIT D Comments: PERFORMED BY: [facility] [id number] BY: Bumble Beez[address] [id number] 25 Vitamin D, 25-Hydroxy 39.5 ng/mL (Normal) Range: 30.0-100.0 Comments: Vitamin D deficiency has been defined by the [place] ofMedicine and an Endocrine Society practice guideline as alevel of serum 25-OH vitamin D less than 20 ng/mL (1,2).The Endocrine Society went on to further define vitamin Dinsufficiency as a level between 21 and 29 ng/mL (2).1. IOM ([place] of Medicine). 2010. Dietary reference intakes for calcium and D. [place]: The National Academies Press.2. Gabbi MF, Singh [place], Pollo JOSEPH, et al. Evaluation, treatment, and prevention of vitamin D deficiency: an Endocrine Society clinical practice guideline. JCEM. 2010; 96(7):1911-30. :29 TRILEPTAL-OXCARBAZEPINE 186063 Comments: PERFORMED BY: [facility]kickerAt[facility] [id number] BY: [facility] Cdujggoilh9843 [facility] [id number] (36680) Oxcarbazepine 38 ug/mL (Abnormal) Range: 10-35 Comments: Detection Limit = 1 :30 CBC W/Diff, Automated Comments: [facility] [address] [place], [place], [id number] Absolute Lymph 0.90 {X10_3/ul} (Normal) Range: 0.83-4.51 [...] 4.2-5.4 WBC 5.2 K/mm3 (Normal) Range: 4.4-11.0 38-Pde-295698:30 Comprehensive Metabolic Profil Comments: [facility] [address] [place], [place], [address] GAP 8 (Normal) Range: 5-15 CO2 26.0 [...] 200 mg/dLsuggests DIABETES MELLITUS per A.D.A. criteria. 56-Cxq-811622:30 Lipid Profile Comments: [facility] [address] [place], [address] VLDL 38 mg/dL (Normal) Range: 5-40 LDL [...] 200-240 mg/dL Borderline >240 mg/dL High Risk 35-Bsh-169476:30 Prealbumin Comments: [facility] [address] [place], [address] PREALBUMIN 26.0 mg/dL (Normal) Range: 20.0-40.0 58-Djs-835432:30 Thyroid Stim Hormone (TSH) Comments: [facility] [address]qv[address] [place], [address] TSH 1.02 {uIU/mL} (Normal) Range: 0.358-3.74 45-Djd-752378:30 Trileptal-Oxcarbazepine Comments: [facility] (refer to report for specific site)refer to report for address and phone number TRILEPT [id number] 38 ug/mL (Abnormal) Range: 10-35 Comments: Detection Limit = 1Performed at: [facility] [address] [id number] Director: Reji Gibson MD, Phone: [phone] 66-Bvg-248495:30 Vitamin D,25 Hydroxy Comments: [facility] [address] [place], [address] Vitamin D 25-OH 38.4 ng/mL (Normal) Comments: Vitamin D 25(OH) Status Range Deficiency <20 ng/mL (50nmol/L) Insuffciency 20 - 30 ng/mL (50 - 75 nmol/L) Sufficiency 30 - 100 ng/mL (75 - 250 nmol/L) Toxicity >100 ng/mL (>250 nmol/L) 1-Xzn-796813:45 CBC-Complete Blood Cnt No Diff Comments: Test performed at:[facility] [address]cm[address] [place] [address] MPV 10.5 fL (Normal) Range: 6.2-12.0 [...] 4.2-5.4 WBC 6.3 K/mm3 (Normal) Range: 4.4-11.0 1-Tje-479442:45 Comprehensive Metabolic Profil Comments: Is Patient Taking Vitamins or Folic Acid Supplements? NTest performed at:[facility] [address]hemvdkt[address] [place] [address] GAP 7 (Normal) Range: 5-15 CO2 29.0 [...] Vitamins or Folic Acid Supplements? NTest performed at:[facility] [address]km[address] [place] [address] C-REACTIVE PROT < 2.90 mg/L (Normal) Range: 0.0-3.0 Comments: C-Reactive Protein (CRP) provides useful information for thediagnosis, therapy and monitoring of inflammatory processesand associated diseases. For the evaluation of Relative Riskfor Cardiovascular Dise ase, a High Sensitivity CRP (HSCRP)should be ordered. :45 Erythrocyte Sed Rate Comments: Test performed at:[facility] [address]fkyhb[address] [place] [address] SED RATE 13 mm/h (Normal) Range: 0-20 :45 Folates, (Folic Acid) Comments: Is Patient Taking Vitamins or Folic Acid Supplements? NTest performed at:[facility] [address] [place] [address] FOLATES 15.70 ng/mL (Normal) Range: 3.1-17.5 :45 Free T3 Comments: Is Patient Taking Vitamins or Folic Acid Supplements? NTest performed at:[facility] [address] [place] [address] FREE T3 2.4 pg/mL (Normal) Range: 2.18-3.98 0-Ckw-351872:45 Miscellaneous Lab Procedure Comments: Test(s) Ordered: OXCARBAZEPINE, LC#[id number], RED TOP SERUM/RFTest performed at:[facility] [address]crjh[address] [place] [address] MISC Comments: Oxcarbazepine (Trileptal), S Oxcarbazepine 35 ug/mL Ref: Detection Limit=1 TESTING PERFOR MED AT [facility] (Normal) rp. ORIGINAL REPORT ON FILE IN LAB CONTAINS ADDITIONAL TEST SITE INFORMATION. TEST 0-Pks-254554:45 Prealbumin Comments: Is Patient Taking Vitamins or Folic Acid Supplements? NTest performed at:[facility] [address]yg[address] [place] [address] PREALBUMIN 30.9 mg/dL (Normal) Range: 20.0-40.0 :45 ,Serum,hCG Quali. Comments: Test performed at:[facility] [address]kkd[address] [place] [address] HCGSQUAL NEGATIVE {Negative} (Normal) Range: 0-9 Nonpreg HCG Qual triggr < 1 m[iU]/mL (Normal) 5-Ghp-338672:45 Prolactin Comments: Is Patient Taking Vitamins or Folic Acid Supplements? NTest performed at:[facility] [address] [place] [address] PROLACTIN 9.5 ng/mL (Normal) Comments: NORMAL REFERENCE RANGES FEMALE NON- 2.2 - 30.3 ng/mL 8.1 - 347.6 ng/mL POST-MENOPAUSAL 0.7 - 3 1.5 ng/mL MALE 2.5 - 17.4 ng/mLNEW TEST METHOD AND REFERENCE RANGES FEBRUARY 01, 201218-Dec-20144-Tle-618889:45 T4 Free Direct Comments: Is Patient Taking Vitamins or Folic Acid Supplements? NTest performed at:[facility] [address]flbae[address] [place] [address] T4 FREE DIRECT 0.74 ng/dL (Abnormal) Range: 0.76-1.46 0-Ewe-689223:45 Thyroid Stim Hormone (TSH) Comments: Is Patient Taking Vitamins or Folic Acid Supplements? NTest performed at:[facility] [address] [place] [address] TSH 1.39 {uIU/mL} (Normal) Range: 0.358-3.74 6-Tye-158029:45 Urinalysis, Routine (Dipstick) Comments: How was Urine Obtained? Urine, RandomTest performed at:[facility] [address] [place] [address] LEUK ESTERASE 500 /ul (Abnormal) OCCULT BLOOD-UR Negative /ul (Normal) NITRITE UR Negative (Normal) UROBILI Normal mg/dL (Normal) PROT DIPSTX Negative mg/dL (Normal) pH UR 8.0 (Normal) Range: 5.0 - 8.0 SP.GR. DIPSTX 1.010 (Normal) Range: 1.002-1.030 KETONE UR Negative mg/dL (Normal) BILIRUBIN URINE Negative mg/dL (Normal) GLUCOSE, UR Normal mg/dL (Normal) CLARITY Sl. Cloudy (Normal) COLOR Yellow (Normal) 7-Jqf-776532:45 Vitamin B12 1089 pg/mL (Abnormal) Comments: Test performed at:[facility] [address]yyv[address] [place] [address] Range: 211-911 5-Zzw-718284:45 Vitamin D,25 Hydroxy Comments: Test performed at:[facility] [address]jepcih[address] [place] [address] Vitamin D 25-OH 23.9 ng/mL (Normal) Comments: Vitamin D 25(OH) Status Range Deficiency <20 ng/mL (50nmol/L) Insuffciency 20 - 30 ng/mL (50 - 75 nmol/L) Sufficiency 30 - 100 ng/mL (75 - 250 nmol/L) Toxicity >100 ng/mL (>250 nmol/L) 98-Vnv-222341:43 ALBUMIN SERUM (19390) Comments: PATIENT NOT FASTINGPERFORMED BY: [facility]CoAtl[facility] CampusZmrljd7454 [facility] [id number] Albumin, Serum 4.7 g/dL (Normal) Range: 3.5-5.5 81-Ifm-817027:43 PREALBUMIN (37788) Comments: PATIENT NOT FASTINGPERFORMED BY: [facility]6370 [facility] [id number] Prealbumin 29 mg/dL (Normal) Range: 20-40 90-Nox-270352:21 ANJELICA CULTURE-OTHER (70645) Comments: PATIENT NOT FASTINGPERFORMED BY: [place] [address]25370 [facility] [id number] Information: SRC:THRT [id number] Result 1 RRF (Normal) Comments: Routine respiratory jasper Upper Respiratory Culture Final report (Normal) 17-Vum-048863:43 PROLACTIN (73412) Comments: PATIENT NOT FASTINGPERFORMED BY: [place] [address]25370 [facility] [id number] Prolactin 13.8 ng/mL (Normal) Range: 4.8-23.3 66-Mmf-806361:43 T3, FREE (TRIDOTHYRONINE) (53532) Comments: PATIENT NOT FASTINGPERFORMED BY: [facility]6370 [facility] [id number] Triiodothyronine,Free,Serum 3.3 pg/mL (Normal) Range: 2.0-4.4 23-Jub-079909:43 T4, FREE (THYROXINE) (22119) Comments: PATIENT NOT FASTINGPERFORMED BY: [facility]6370 [facility] [id number] T4,Free(Direct) 1.14 ng/dL (Normal) Range: 0.82-1.77 94-Xla-714581:43 TSH (74645) Comments: PATIENT NOT FASTINGPERFORMED BY: [place] [address]25370 [facility] [id number] Information: [id number] TSH 1.580 {uIU/mL} (Normal) Range: 0.450-4.500 64-Zbh-891973:00 CBCD ANC 1.8 {X10_3/uL} (Abnormal) Range: 2.0-7.7 [...] CDIFF See Note (Normal) Comments: FAXED TO 5.195 C. Diff DNA Positive-Toxigenic C. Difficile DNA [...] spora, or Mi crosporidia. TESTING PERFORMED AT [facility]. ORIGINAL REPORT ON FILE IN LAB [...] Detected :55 Oxcarbazepine (Trileptal),S Comments: PERFORMED BY: Bumble Beez[address] [id number] BY: [address] [id number] Oxcarbazepine 32 ug/mL (Normal) Range: 10-35 Comments: Detection Limit = 1 :55 CALCIFIDIOL (19412) VIT D Comments: PERFORMED BY: Bumble Beez[address] [id number] BY: [facility] [id number] 25 Vitamin D, 25-Hydroxy 27.4 ng/mL (Abnormal) Range: 30.0-100.0 Comments: Vitamin D deficiency has been defined by the [place] ofFair[facility] Medical Centercine and an Endocrine Society practice guideline as alevel of serum 25-OH vitamin D less than 20 ng/mL (1,2).The Endocrine Society went on to further define vitamin Dinsufficiency as a level between 21 and 29 ng/mL (2).1. IOM ([place] of Medicine). 2010. Dietary reference intakes for calcium and D. [place]: The National Academies Press.2. Gabbi MF, Singh MCKEON, Pollo JOSEPH, et al. Evaluation, treatment, and prevention of vitamin D deficiency: an Endocrine Society clinical practice guideline. JCEM. 2010; 96(7):1911-30. :55 Folate (92152) Comments: PERFORMED BY: [employer] Muaqry3672 [facility] [id number] BY: [address] [id number] Folate (Folic Acid), Serum 16.3 ng/mL (Normal) Comments: A serum folate concentration of less than 3.1 ng/mL isconsidered to represent clinical deficiency. 6-Jyt-170844:55 VITAMIN B-12 (CYANOCOBALAMIN) Comments: PERFORMED BY: [employer] Vtslxq1088 [facility] [id number] BY: [address] [id number] (36075) Vitamin B12 889 pg/mL (Normal) Range: 211-946 :55 TSH (61445) Comments: PERFORMED BY: [employer] [id number] BY: [address] [id number] TSH 1.670 {uIU/mL} (Normal) Range: 0.450-4.500 :55 SED RATE ERYTHROCYTE Comments: PERFORMED BY: [employer] Mxaygy3677 [facility] [id number] BY: [address] [id number] (53808) Sedimentation Rate-Westergren 6 mm/h (Normal) Range: 0-32 8-Rhp-157070:55 METABOLIC PANEL, Comments: PERFORMED BY: [employer] Fnmykb3732 [facility] [id number] BY: [address] [id number] COMPREHENSIVE (76983) ALT (SGPT) 11 [iU]/L (Normal) Range: 0-32 [...] cells when received.This may adversely affect serumChemistries. 4-Agn-764752:55 C-REACTIVE PROTEIN (84171) Comments: PERFORMED BY: [employer] Fuzwxx8026 [facility] [id number] BY: [employer] [id number] C-Reactive Protein, Quant 0.9 mg/L (Normal) Range: 0.0-4.9 1-Vli-283276:55 CBC (AUTO) (89729) Comments: PERFORMED BY: [address] [place] [address] [id number] BY: [employer] [id number] Platelets 213 {x10E3/uL} (Normal) Range: 140-415 Comments: [...] of these values in the reference population. 2-Pnf-442282:29 ANJELICA CULTURE-OTHER (75080) Comments: PATIENT NOT FASTINGPERFORMED BY: [facility]6370 [facility] [id number] Information: SRC:THRT [id number] Result 1 RRF (Normal) Comments: Routine respiratory jasper Upper Respiratory Culture Final report (Normal) 6-Qbp-551774:03 Rapid Strep Test, Office (67790) Rapid Strep Test, Negative (Normal) Office 38-Ipb-519755:55 CDIF See Note (Normal) Comments: A positive [...] these cases. C. DIFF ANTIGENS NEGATIVE :55 [facility] UR Culture exhibits no growth. (Normal) :55 [facility] 0 SEEN {/hpf} (Normal) UBAC 0 [...] Comments: C. DIFF ANTIGENS NEGATIVE :2 TRILEPT [id number] 20 ug/mL (Normal) Range: 10-35 4 Comments: Detection Limit = 1Performed at: [facility] - [facility] [address] [place], [place] [id number] Director: Reji Gibson MD, Phone: [phone] 36-Fvc-842567:1 C DIF TOXIN/AG See Note (Normal) Comments: RESULTS CALLED TO 06/23/112004 VONDA ELAM.REPORT READ BACK BY SAME . * This is an amended result. * A 5 prior result that was reported as final has been changed.06/23/112004 by IESHAPreviously reported as: C. DIFF ANTIGENS POSITIVE 30-Lnp-967185:46 COMP METABOLIC GAP 11 (Normal) Range: 5-15 [...] Cyclospora, or Microspo ridia. TESTING PERFORMED AT [facility]. ORIGINAL REPORT ON FILE IN LAB CONTAINS ADDITIONAL TEST SITE INFORMATION. OVA/ PARASITES EXAM NO OVA, CYSTS, OR PARASITES FOUND. :21 WBC,STOOL See Note (Normal) Comments: RESULTS CALLED TO OFFICE TO ALEXSANDRA07/17/10 115KRISTIAN DAWSON.REPORT READ BACK BY SAME . Comments: FECAL WBCs NONE SEEN 12-Gpx-52483:20 C DIF TOXIN/AG See Note (Normal) Comments: COPY OF REPORT SENT TO INFECTION CONTROL 06/25/10 PADMINI.RESULTS CALLED TO CHRISTEN 06/25/10 1432 DIANNA,CRISTA L. C. DIFF ANTIGENS POSITIVE : CUL STOOL/SHIG CULTURE, STOOL See Note [...] Cyclospora, or Microspo ridia. TESTING PERFORMED AT [facility]. ORIGINAL REPORT ON FILE IN LAB CONTAINS ADDITIONAL TEST SITE INFORMATION. OVA/ PARASITES EXAM NO OVA, CYSTS, OR PARASITES FOUND. :20 WBC,STOOL See Note (Normal) Comments: FECAL WBCs NONE SEEN 31-Nfl-349291:14 C DIF TOXIN See Note (Normal) 50-Eea-879813:44 O AND P See Note (Normal) Comments: OVA AND PARASITES EXAM, ROUTINE These results were obtained using wet preparation(s) and trichrome stained smear. This test does not include testing for Crytosporidium parvum, Cyclospora, or Microspo ridia. TESTING PERFORMED AT [facility]. ORIGINAL REPORT ON FILE IN LAB [...] Cyclospora, or Microspo ridia. TESTING PERFORMED AT [facility]. ORIGINAL REPORT ON FILE IN LAB [...] :00 TSH 1.63 {uIU/mL} (Normal) Range: 0.358-3.74 10-Vrw-902482:00 CULTURE, SPUTUM GRAM STAIN See Note (Normal) Comments: GRAM STAIN RARE WHITE BLOOD CELLS RARE GRAM POSITIVE COCCI RARE GRAM NEGATIVE RODS Plan of Care Name Dates Details Instructions Type II diabetes mellitus, well controlled : Continue Current Prescription(s) Indication: Type II diabetes mellitus, well controlled Convulsions : Reviewed Sales Professional Letter Indication: Convulsions Neuromuscular scoliosis : Follow [...] Cystitis, acute Planned Observations URINE ANJELICA CULTURE-IDENTIFICATN (70721)Indication: Abnormal urine On: 8-Eib-784629:25 Request MRSA Culture ([id number])Indication: Thick sputum On: 4-Xgl-069295:32 Request Anaerobic & Aerobic Culture (68428)Indication: Thick sputum On: 03-Cfe-755887:46 Request Comments: collected from trachea stoma Anaerobic & Aerobic Culture (61735)Indication: Cellulitis of groin, right On: 4-Bzt-470704:44 Request TRILEPTAL-OXCARBAZEPINE 039107 (96154)Indication: Diarrhea On: 2-Spt-886730:24 Request VITAMIN B12 AND FOLATES (29626)Indication: Diarrhea On: 1-Oju-581036:24 Request CALCIFEDIOL (41722)Indication: Diarrhea On: 0-Ehz-726736:24 Request CALCIFEDIOL (13377)Indication: Diarrhea On: 9-Hyy-505566:23 Request TSH (THYROID STIMULATING HORMONE) (37711)Indication: Diarrhea On: 4-Mwu-110749:23 Request METABOLIC PANEL, COMPREHENSIVE (93642)Indication: Diarrhea On: : Request CBC, PLATELETS & AUT DIFF (99786)Indication: Diarrhea On: : Request OVA & PARASITE DIR SMEAR (55747)Indication: Diarrhea On: :46 Request ANJELICA CULTURE-STOOL (27135)Indication: Diarrhea On: :46 Request OCCULT BLOOD FECES SCREEN (70493)Indication: Diarrhea On: :46 Request LEUKOCYTE COUNT, FECAL (75829)Indication: Diarrhea On: :46 Request C-DIFFICILE, STOOL (87546)Indication: Diarrhea On: :46 Request OVA & PARASITE DIR SMEAR (37648)Indication: C. difficile diarrhea On: :50 Request OCCULT BLOOD FECES SCREEN (34524)Indication: C. difficile diarrhea On: :50 Request ANJELICA CULTURE-STOOL (91940)Indication: C. difficile diarrhea On: :50 Request LEUKOCYTE COUNT, FECAL (43546)Indication: C. difficile diarrhea On: :50 Request C-DIFFICILE, STOOL (91019)Indication: C. difficile diarrhea On: :49 Request Clostridium difficile Culture (55773)Indication: Diarrhea On: 2-Ltf-583078:52 Request URINALYSIS, W/ MICRO (18052)Indication: Dysuria On: :56 Request URINE ANJELICA CULTURE-SISSY COL COUNT (82854)Indication: Dysuria On: :54 Request OCCULT BLOOD FECES SCREEN (67221)Indication: Diarrhea On: :01 Request LEUKOCYTE COUNT, FECAL (71868)Indication: Diarrhea On: :05 Request ANJELICA CULTURE-STOOL (99398)Indication: Diarrhea On: :05 Request Clostridium difficile Toxin A+B, EIA (69655)Indication: Diarrhea On: :05 Request TRILEPTAL-OXCARBAZEPINE 360761 (41367)Indication: Convulsions On: 34-Abt-782879:55 Request PREALBUMIN (45161)Indication: Nutritional assessment On: :45 Request CALCIFIDIOL (09511) VIT D 25Indication: Vitamin D deficiency On: :44 Request TSH (03606)Indication: Hypertension On: :44 Request METABOLIC PANEL, COMPREHENSIVE (65895)Indication: Hypertension On: :44 Request LIPID PANEL (37599)Indication: Hypertension On: :44 Request CBC with auto diff (38986)Indication: Hypertension On: :44 Request Metabolic Panel, Basic (83075)Indication: Abnormal urine On: :03 Request VITAMIN B12 AND FOLATES (46369)Indication: Abnormal urine On: :03 Request CALCIFEDIOL (99448)Indication: Abnormal urine On: :03 Request Comments: vit d3 URINE ANJELICA CULTURE-SISSY COL COUNT (83292)Indication: Abnormal urine On: 6-Yun-649099:52 Request TRILEPTAL-OXCARBAZEPINE 782058 (02708)Indication: Cerebral palsy On: 27-Ose-251961:46 Request HCG Qualitative, Serum (74307)Indication: Amenorrhea On: :45 Request PROLACTIN (18486)Indication: Amenorrhea On: 54-Flz-026893:44 Request PREALBUMIN (50633)Indication: Cerebral palsy On: 23-Pee-545028:43 Request URINALYSIS (85723)Indication: Fatigue On: :43 Request T3, FREE (TRIDOTHYRONINE) (89164)Indication: Fatigue On: :43 Request T4, FREE (THYROXINE) (99823)Indication: Fatigue On: :43 Request Folate (34855)Indication: Fatigue On: 18-Etx-110528:42 Request CALCIFIDIOL (69679) VIT D 25Indication: Fatigue On: 62-Vrt-934436:42 Request VITAMIN B-12 (CYANOCOBALAMIN) (06941)Indication: Fatigue On: 97-Bse-307618:42 Request TSH (34022)Indication: Fatigue On: 94-Vbo-280716:42 Request SED RATE ERYTHROCYTE (50464)Indication: Fatigue On: :42 Request METABOLIC PANEL, COMPREHENSIVE (59003)Indication: Fatigue On: :42 Request C-REACTIVE PROTEIN (61171)Indication: Fatigue On: :42 Request CBC (AUTO) (01675)Indication: Fatigue On: :42 Request CULTURE,BODY FLUID (39203)Indication: Irregular Menstrual Cycle (Renamed from Irregular bleeding) On: 70-Cte-198871:07 Request Comments: urine Rapid Strep Test, Office (46138)Indication: Pharyngitis, acute On: 02-Czw-866356:51 Request Urinalysis, Office (49749)Indication: Fatigue On: 80-Nnx-490413:49 Request HgA1C , Office (31995)Indication: Hyperglycemia On: 11-Azb-189966:41 Request CALCIFIDIOL (09390) VIT D 25Indication: Vitamin D deficiency On: :32 Request TRILEPTAL-OXCARBAZEPINE 274607 (13792)Indication: Convulsions On: :31 Request Metabolic Panel, Comprehensive (22781)Indication: Acute renal failure On: :31 Request CBC with manual diff (30667)Indication: Hypertension On: :31 Request CBC with manual diff (77367)Indication: Thrombocytopenia, unspecified On: :35 Request Comments: in citrate tube FIBRINOGEN (13891)Indication: Thrombocytopenia, unspecified On: :35 Request PTT (Activated Partial Thromboplastin Time) (52804)Indication: Thrombocytopenia, unspecified On: :35 Request PT (Prothrobim Time) (16795)Indication: Thrombocytopenia, unspecified On: :35 Request HEPATITIS C ANTIBODY (58864)Indication: Thrombocytopenia, unspecified On: :35 Request HEPATITIS B CORE ANTBD-IGG/IGM (29784)Indication: Thrombocytopenia, unspecified On: :35 Request HEPATITIS B SURFACE ANTIGEN (38447)Indication: Thrombocytopenia, unspecified On: :35 Request HEPATITIS B SURFACE ANTIBODY (85383)Indication: Thrombocytopenia, unspecified On: :35 Request Methylmalonic acid, serum 34421Ivglsglzbi: Thrombocytopenia, unspecified On: Request Vitamin B-12 (cyanocobalamin) (50437)Indication: Thrombocytopenia, unspecified On: :35 Request Sed Rate Erythrocyte (22606)Indication: Thrombocytopenia, unspecified On: : Request Metabolic Panel, Comprehensive (70292)Indication: Thrombocytopenia, unspecified On: :35 Request JENNY (ANTINUCLEAR ANTIBODY) (90090)Indication: Thrombocytopenia, unspecified On: Request CBC with manual diff (28458)Indication: Convulsions On: :31 Request Clostridium difficile Toxin A+B, EIA (96321)Indication: Diarrhea On: :31 Request OVA & PARASITE DIR SMEAR (97799)Indication: Diarrhea On: :44 Request OCCULT BLOOD FECES SCREEN (44238)Indication: Diarrhea On: :44 Request LEUKOCYTE COUNT, FECAL (76235)Indication: Diarrhea On: :44 Request ANJELICA CULTURE-STOOL (39793)Indication: Diarrhea On: :44 Request Clostridium difficile Toxin A+B, EIA (32696)Indication: Diarrhea On: :22 Request C DIFF AMPLIFIED PROBE (27995)Indication: Diarrhea On: :51 Request Metabolic Panel, Comprehensive (44416)Indication: Acute renal failure On: :08 Request Comments: recheck prior to August. CALCIFIDIOL (52660) VIT D 25Indication: Vitamin D deficiency On: :08 Request Comments: recheck prior to August. TRILEPTAL-OXCARBAZEPINE 303639 (97795)Indication: Convulsions On: :08 Request Culture, Stool (15537)Indication: Diarrhea On: : Request C DIFF AMPLIFIED PROBE (09798)Indication: Diarrhea On: 58-Pol-264695:01 Request C DIFF AMPLIFIED PROBE (51497)Indication: Diarrhea On: 97-Zax-921478:32 Request C DIFF AMPLIFIED PROBE (62518)Indication: Diarrhea On: 06-Brj-380489:51 Request URINE ANJELICA CULTURE-IDENTIFICATN (41609)Indication: Backache On: 7-Oub-731601:58 Request URINALYSIS (93396)Indication: Backache On: 6-Dqn-793699:58 Request Metabolic Panel, Comprehensive (14297)Indication: Profound mental retardation (Renamed from IQ under 20) On: 2-Pfd-344475:25 Request Comments: Dr Pino neurologist at [facility] CBC (Auto) (43192)Indication: Profound mental retardation (Renamed from IQ under 20) On: 5-Clb-414155:25 Request TRILEPTAL-OXCARBAZEPINE 232362 (88257)Indication: Cerebral palsy On: :24 Request COLUMN CHROMATOGRAPHY, SISSY, SINGLE (66001)Indication: Convulsions On: 47-Ttp-073278:54 Request Comments: trileptal 305261 Clostridium difficile Toxin A+B, EIA (15450)Indication: Diarrhea On: 61-Ytv-353314:26 Request CBC (Auto) (93177)Indication: Convulsions On: 23-Ver-972302:25 Request Metabolic Panel, Comprehensive (41221)Indication: Convulsions On: 37-Fve-652245:24 Request ANJELICA CULTURE-OTHER (87602)Indication: Pharyngitis, acute On: 7-Mpk-549720:44 Request C.Difficile, Stool (03954)Indication: Diarrhea On: 04-Csv-858600:48 Request ANJELICA CULTURE-STOOL (07356)Indication: Diarrhea On: :55 Request C.Difficile, Stool (32744)Indication: Diarrhea On: :54 Request LEUKOCYTE COUNT, FECAL (90948)Indication: Diarrhea On: :27 Request OVA & PARASITE DIR SMEAR (81166)Indication: Diarrhea On: :27 Request C.Difficile, Stool (37149)Indication: Diarrhea On: :27 Request ANJELICA CULTURE-STOOL (97473)Indication: Diarrhea On: 94-Nxg-237591:27 Request TSH (71749)Indication: Unspecified bacterial pneumonia On: 6-Rrw-205802:48 Request CBC, Platelets & Auto Diff (09106)Indication: Unspecified bacterial pneumonia On: 1-Xzu-926062:48 Request Magnesium (44390)Indication: Unspecified bacterial pneumonia On: :48 Request Phosphorus (90700)Indication: Unspecified bacterial pneumonia On: :48 Request Metabolic Panel, Basic (01111)Indication: Unspecified bacterial pneumonia On: :48 Request Planned Encounters Medical; 4 Month FU - On: 10-Oct-2018 13:15 [facility] Sandra Bermudez DO, DO, Kathleen Planned Procedures Flu Vaccine (Quadrivalent) On: 06-Jun-2018 Intent 85516Ow: Sandra Bermudez DO Comments: Lot #[id number]-L dltd, IMDose prefilled syringegiven by:MARICARMEN Santana reviewed and ABN signed Sandra Bermudez DO Flu Vaccine (Quadrivalent) On: 02-Aug-2017 Intent 66602Qp: Sandra Bermudez DO Comments: Lot:[id number]:12/29Amt:0.5mlRoute:IMSite: Rt DltdGiven By: ALFREDITO James signed Sandra Bermudez DO Flu Vaccine (Quadrivalent) On: 14-May-2016 Intent 30606Td: Roe Baxter MD Comments: Lot #[id number]-L dltd, IMDose prefilled syringegiven by:ALFREDITO Goldberg and ABN signed ADMINISTRATION OF INFLUENZA On: 02-Aug-2015 Intent VIRUS VACCINE (G0008)By: Linda Houston MD Flu Vaccine (Quadrivalent) On: 02-Aug-2015 Intent 16839Be: Linda Houston MD Comments: Lot #:[id number] date:Amount given:0.5mlRoute: IMSite given:L DltdGiven by: Jessica BASSETT and ABN signed Quad Flu ELECTROCARDIOGRAM, COMPLETE On: 21-Mar-2015 Intent (ECG) (10584)By: Linda Houston MD CT - Brain/Head (IV Contrast On: 29-Nov-2014 Intent Needed)By: Linda Houston MD ADMINISTRATION OF INFLUENZA On: 06-Aug-2014 Intent VIRUS VACCINE (G0008)By: TIMBO Villegas Flu Vaccine (Quadrivalent) On: 06-Aug-2014 Intent 63466Xm: TIMBO Villegas Comments: Lot #:[id number] date:mount given:0.5mlRoute: IM Site given:Given by: to be given per patient home health nurse CATHETERIZE FOR URINE SPEC On: 09-Mar-2014 Intent (P9612)By: Linda Houston MD Comments: pls use pediatric cath- and fax results to [phone] SPECIMEN HNDLNG/TRNSPRT, OFFC > On: 09-Mar-2014 Intent LAB (57748)By: Linda Houston MD IMMUNIZ ADMNIN, 1 VAC, On: 28-Jul-2013 Intent SNGL/COMBO (09249)By: Archie BOLDEN, Comments: Lot #[id number] to nurse for admin Jessica Stack FLU VAC, SPLIT, >3 YEARS, On: 28-Jul-2013 Intent INTRAMUSC (14473)By: Jessica Almanza LPN SPECIMEN HNDLNG/TRNSPRT, OFFC > On: 18-May-2013 Intent LAB (41991)By: Linda Houston MD Eprescribed prescriptions On: 18-May-2013 Intent (G8553)By: Jessica Almanza LPN FLU VAC, SPLIT, >3 YEARS, On: 23-Jun-2011 Intent INTRAMUSC (06060)By: Archie BOLDEN, Comments: Lot #[id number]-L arm, IMDose prefilledgiven by:Jessica Stack IMMUNIZ ADMNIN, 1 VAC, On: 23-Jun-2011 Intent SNGL/COMBO (18900)By: Jessica Almanza LPN Instructions Name Dates Details [...] the procedure will be Dr Beck - [facility]. The chief complaint is teeth cleanin End: [...] Medicine End: 01-May-2009 9:25 Payers MedicaidAnna Drew; rickey guarantor
--- OUTSIDE RECORDS SUMMARY | 2018-10-08 11:23 | XMS RPT_ITS | Continuity of Care Document ---
:1990 Author Organization [facility] Address [address] [place] [address] Phone Care Team Providers Name Role Phone [...] Propionate 50 MCG/ACT Nasal Suspension 2 (two) Blue(s) Blue(s) each nostril qd for 90 days Quantity: 1 {QS} Refills: 3 Ordered:16-Sep-2017 Karin Bermudez DO, DO, Kathleen Start : 16-Sep-2017 Active Lantus SoloStar 100 UNIT/ML Subcutaneous Solution [...] Houston MD Start : 20-Jan-2016 Active Nyamyc 349507 UNIT/GM External Powder uad Powder to affected area(s) bid and prn for 0 days Quantity: 15 {Bottle} Refills: 6 Ordered:19-Nov-2017 Karin Bemrudez DO, DO, Kathleen Start : 19-Nov-2017 End : 17-Nov-2013 Active Nystatin 788522 UNIT/GM External Cream uad Cream to affected area(s) bid prn for 7 days Quantity: 1 {Bottle} Refills: 3 Ordered:03-Jun-2018 Karin Bermudez DO, DO, Kathleen Start : 03-Jun-2018 Active Nystatin 422634 UNIT/ML Mouth/Throat Suspension 5 ml ml 5 times day for 10 days Quantity: 250 {Milliliter} Refills: 9 Ordered:03-Apr-2016 Jessica Almanza LPN Start : 03-Apr-2016 Active Nystatin Powder 1 Powder Powder tid for 10 days Quantity: 1 {Bottle} Refills: 3 Ordered:28-Jun-2017 Karin Bermudez DO, DO, Kathleen Start : 28-Jun-2017 Active Pen [place] 31G X 5 MM Miscellaneous 1 (one) [...] {Tablet} Refills: 6 Ordered:21-Mar-2015 Long Jessica BOLDEN Start : 22-May-2013 Active Xopenex 1.25 MG/3ML Inhalation Nebulization Solution 3 ml plus 6-12 ml NS Nebulized Soln tid via IPV macine) for 0 days Quantity: 2 {Box} Refills: 6 Ordered:02-May-2018 Lara DO StephonLucero Sandra Start : 02-May-2018 Active Comments:has tried and [...] 7 days Refills: 0 Ordered:26-Feb-2010 Katia JOHNSTON Liliam Gordon Start : 19-Feb-2010 End : 26-Feb-2010 Inactive Comments:QS KETOCONAZOLE, 2% (External Cream) apply to skin rash 1-2 times daily prn for 0 days Refills: 0 Ordered:23-Jun-2011 Long [employer]PER[employer]OR, Jessica L End : 23-Jun-2011 Inactive LevoFLOXacin [...] for 0 days Refills: 0 Ordered:23-Jun-2011 Long [employer]PER[employer]OR, Jessica L End : 23-Jun-2011 Inactive MUCINEX FOR KIDS, 100MG/5ML (Oral Liquid) Liquid 15 cc tid 14 days for 0 days Refills: 0 Ordered:23-Jun-2011 Long [employer]PER[employer], Jessica L Start : 13-Jun-2009 End : [...] days Quantity: 30 {Packet} Refills: 2 Ordered:15-May-2016 Jessica Almanza LPN Start : 14-May-2016 End : 15-May-2016 Inactive [...] nostril qd for 0 days Quantity: 1 {Blue} Refills: 3 Ordered:09-Apr-2015 Linda Houston MD Start : 09-Apr-2015 End : 20-Jan-2016 Discontinued Comments:This order discontinued per [employer]. MUCOMYST, 20% (Inhalation Solution) 1 bid/prn for 0 days Refills: 0 Ordered:23-Jun-2011 Long [employer], Jessica L End : 23-Jun-2011 Discontinued Comments:This order discontinued per [employer]. VYTONE, 1-1% (External Cream) Cream bid for 0 days Quantity: 1 {Cream} Refills: 3 Ordered:13-Jun-2009 Long [employer] SUPER[employer], Jessica L Start : 13-Jun-2009 End : [...] cdiff on probiotic if sconitnue diarrhea check ih dietary to changing.continues with liquid stools November, [...] Comments: See Note; NOTES: [facility] [address] [place] [address] OFFICE VISIT Date of Service: 05/25/18 MR#: [id number] Acct: [id number] Name: MIGUEL MANDY Rickey Rep #: [id number] : 1990 Provider: Lawrence Weiner MD Age/Sex: 28/F Location: [facility].PMW Status: Signed Assessment AND Plan Problems 1. [...] Refilled: Plan Detail Follow Up 6 Months (BW) HPI 6 M FU: Chief Complaint: Increased [...] .COMPLEX #144 ml 05/25/18 [Rx Confirmed 05/25/18] PFS Medical History Pneumonia (Re solved) Cerebral palsy [...] Result: Comments: See Note; NOTES: [facility] Medical Records Department [address] [place] [address] Emergency Department Summary 01/24/18 1645 MR#: [id number] Acct: [id number] Name: MANDY MONTERO Rep #: [id number] : 1990 27 From: Stephan Hughes MD [...] Discharged to home Impression: 1. Cellulitis left [facility] region 2. Dysuria of unknown etiology 3. History of MRDD 4. History of Propulsid 5. History of chronic respiratory failure on ventilator This note was generated with Spaces 2 Hostation software. It m ay contain incorrect words, [...] Instructions: Mandy prescription was electronically transmitted to [place], your [facility] pharmacy What to do if you have Problems For any increased pain, shortness of breath, bleeding, nausea or vomiting, chest pain, or any unexpected problems, contact your Primary Care Provider. Call [facility] ([phone]) or report to the closest Emergency Room. Call 911 if necessary. 01/24/18 1891 <Electronically signed by Stephan Hughes MD> Date Stephan Hughes MD Cosigner Signature (If Indicated): Date CC: Sandra Lara DO 10-Dec-2017 Pulmonary Visit Report Result: Comments: See Note; NOTES: [facility] [place] [address] [place] [address] OFFICE VISIT Date of Service: 12/09/17 MR#: [id number] Acct: [id number] Name: MANDY MONTERO Rep #: [id number] : 1990 Provider: Lawrence Weiner MD Age/Sex: 27/F Location: [facility] Status: Signed Assessment AND Plan 1. Chronic [...] Comments: See Note; NOTES: [facility] [place] [address] [place] [address] OFFICE VISIT Date of Service: 09/02/17 MR#: [id number] Acct: [id number] Name: MANDY MONTERO Rep #: [id number] : 1990 Provider: Lawrence Weiner MD Age/Sex: 27/F Location: [facility].PMW Status: Signed Assessment AND Plan 1. Spastic [...] mg (10 mL) PO QDAY PRN allergy afgmuujbE80 .2 Ok to give through PEG Follow Up 3 Months ([facility]) HPI 6 M FU: Chief Complaint: Increased secretions Details: Patient is a 27-year-old female who presents for evaluation secondary to incre ased secretions. Since last visit, patient's mother denies any ER visits, hospitalizations or prednisone burst. Patient does suffer from cerebral palsy and is unable to answer for herself. Patient pres ents on a cot with her mother and healthcare staff physical therapy assistant. Family reports the patient has had [...] Signature: Date (if applicable) CC: Sandra Bermudez 10-Mar-2017 Emergency Department Summary Result: Comments: See Note; NOTES: [facility] Medical Records Department [address] [place] [address] Emergency Department Summary MR#: [id number] Acct: [id number] Name: MANDY MONTERO Rep #: [id number] : 1990 26 From: Flip Jessica MD [...] . Flip Jessica MD T: NTS JOB: [id number] 03/10/17805 <Electronically signed by Flip Jessica MD> Date Flip Jessica MD Cosigner Signat ure (If Indicated): Date CC: Sandra Bermudez DO Date Dictated: 03/06/171722 Date Transcribed: 03/06/171722 Vice President Of Procurement: Signed 06-Mar-2017 Discharge Instruction Result: Comments: See Note; NOTES: [facility] Medical Records Department [address] [place] [address] Discharge Instruction 03/06/171719 MR#: [id number] Acct: [id number] Name: ROMELIA MONTERO Rep #: [id number] : 1990 26 From: Flip Jessica MD [...] your Primary Care Provider. Call [facility] ([phone]) or report to the closest Emergency Room. Call 911 if necessary. 03/06/171719 <Electronically signed by Flip Jessica MD> Date Flip Jessica MD Cosigner Signature (If Indicated): Date CC: Sandra Bermudez DO 06-Mar-2017 Chest 1 View Result: Comments: See Note; NOTES: [facility] Imaging Services [address] [place] [address] Verdana 4d Chest 1 View MR#: [id number] Acct: [id number] Name: MANDY MONTERO Rep #: [id number] : 1990 F 26 From: Merritt Bolton MD PCP: Sandra Bermudez DO Status: REG ER Study: Chest 1 View Date of Exam: 03/06/17 Exam# [id number] Ordering Dr: Flip Jessica MD STUDY: X-RAY [...] CC: Flip Jessica MD; Sandra Bermudez DO Vice President Of Procurement: Signed 06-Mar-2017 Thoracic Spine 3 Views Result: Comments: See Note; NOTES: [facility] Imaging Services [address] [place] [address] Verdana 4d Thoracic Spine 3 Views MR#: [id number] Acct: [id number] Name: MANDY MONTERO Rep # : [id number] : 1990 F 26 From: Merritt Bolton MD PCP: Sandra Bermudez DO Status: REG ER Study: Thoracic Spine 3 Views Date of Exam: 03/06/17 Exam# [id number] Ordering Dr: Flip Jessica MD [facility] DY: X-RAY - THORACIC SPINE REASON [...] CC: Flip Jessica MD; Sandra Bermudez DO Vice President Of Procurement: Signed 10-Sep-2016 Chest 1 View (Portable) Result: Comments: See Note; NOTES: [facility] Imaging Services [address] [place] [address] Verdana 4d Chest 1 View (Portable) MR#: [id number] Acct: [id number] Name: MANDY MONTERO Rep #: [id number] : 1990 F 26 From: Mandy Chávez MD PCP: Sandra Bermudez DO Status: PRE ER Study: Chest 1 View (Portable) Date of Exam: 09/10/16 Exam# [id number] Ordering Dr: Vinnie Sher MD STUDY: X-RAY [...] MD at 23:49 EST , Service support [phone], CC: Linden Sher MD; Sandra Bermudez DO Vice President Of Procurement: Signed 12-Mar-2016 Emergency Department Summary Result: Comments: See Note; NOTES: [facility] Medical Records Department [address] [place] [address] Emergency Department Summary MR#: [id number] Acct: [id number] Name: MANDY MONTERO Rep #: [id number] : 1990 25 From: Joseph Mcgee MD [...] MD Tejas Escoto C: Jewel Baxter T: JENNIFER JOB: [id number] 03/12/16 0008 <Electronically signed by Joseph Mcgee MD> Date Joseph Mcgee MD Cosigner Signature (If Indicated): Date _ CC: Jewel Baxter; Roe Baxter Date Dictated: 02/29/16112 Date Transcribed: 02/29/16112 Vice President Of Procurement: Signed 28-Feb-2016 Discharge Instruction Result: Comments: See Note; NOTES: [facility] Medical Records Department [address] [place] [address] [place] [address] Discharge Instruction 02/28/161925 MR#: [id number] Acct: [id number] Name: MIGUELMANDY A Rep #: [id number] : 1990 25 From: Joseph Mcgee MD [...] problems, contact your doctor. Call [facility] ([phone]) or report to the closest Emergency Room. Call 911 if necessary. 224 <Electronically signed by Joseph Mcgee MD> Date Joseph Mcgee MD Cosigner Signature (If Indicated): Date ___ CC: Roe Baxter 28-Feb-2016 Abdomen/Pelvis without Cont Result: Comments: See Note; NOTES: [facility] Imaging Services [address] [place] [address] Verdana 4d Abdomen/Pelvis without Cont MR#: [id number] Acct: [id number] Name: MANDY MONTERO Rep #: [id number] : 1990 F 25 From: Seymour Villagomez MD PCP: Roe Baxter Status: REG ER Study: Abdomen/Pelvis without Cont Date of Exam: 02/28/16 Exam# [id number] Ordering Dr: Joseph Patton MD STUDY: CT [...] MD at 18:47 EDT , Service support [phone], CC: Roe Baxter; Joseph Mcgee MD Vice President Of Procurement: Signed 25-Feb-2016 Emergency Department Summary Result: Comments: See Note; NOTES: [facility] Medical Records Department [address] [place] [address] Emergency Department Summary MR#: [id number] Acct: [id number] Name: MANDY MONTERO Rep #: [id number] : 1990 25 From: Tomás Willis MD [...] Tejas Beltre C: Roe Baxter MD T: JENNIFER JOB: [id number] 02/25/16 1517 <Electronically signed by Tomás Willis MD> Date Tomás Willis MD Cosigner Signature (If Indicated): Date CC: Roe Baxter Date Dictated: 02/23/16 1521 Date Transcribed: 02/23/161520 Vice President Of Procurement: Signed 23-Feb-2016 Discharge Instruction Result: Comments: See Note; NOTES: [facility] Medical Records Department [address] [place] [address] Discharge Instruction 02/23/16 1514 MR#: [id number] Acct: [id number] Name: MANDY MONTERO Rep #: [id number] : 1990 25 From: Tomás Willis MD [...] problems, contact your doctor. Call [facility] ([phone]) or report to the closest Emergency Room. Call 911 if necessary. [phone] <Electronically signed by Tomás Willis MD> Date Tomás Willis MD Cosigner Signature (If Indicated): Date CC: Roe Baxter 28-Jan-2016 Chest 1 View (Portable) Result: Comments: See Note; NOTES: [facility] Imaging Services [address] [place] [address] Verdana 4d Chest 1 View (Portable) MR#: [id number] Acct: [id number] Name: MANDY ACUNA Rep #: [id number] : 1990 F 25 From: Abdirahman Awad MD PCP: Linda Houston MD Status: PRE ER Study: Chest 1 View (Portable) Date of Exam: 01/28/16 Exam# [id number] Ordering Dr: Edita Willis MD STUDY: X-RAY [...] MD at 22:53 EDT , Service support [phone], RAD/Chest 1 View (Portable) IMPRESSION: Retrocar diac density in left lower lobe possibly representing atelectasis or infiltrate. Recommend lateral view for further assessment Electronically Signed: Abdirahman Awad MD at 22:53 EDT , Service support [phone], CC: Linda Houston MD; Tomás Willis MD Vice President Of Procurement: Signed Family History Unknown Family Member Name [...] Arm; Cuff Size: Standard Weight 87 lb 8-Tnx-168205:54 Pulse 86 /min Comments: Pattern: Regular Respiration Rate 16 /min Comments: Pattern: Unlabored BP Systolic 140 mm[Hg] Comments: Patient Position: Sitting; Cuff Location: Left Arm; Cuff Size: Standard BP Diastolic 110 mm[Hg] Comments: Patient Position: Sitting; Cuff Location: Left Arm; Cuff Size: Standard Weight 80 lb Height 0 in Head Circumference 0.00 cm Results Date Description Value Details :37 TSH (04124) Comments: PATIENT NOT FASTINGPERFORMED BY: [facility]-LuminXEnglewood Hospital and Medical CenterPkizpr[address] [place] [address] [id number] BY: [place] [id number] TSH 1.030 {uIU/mL} (Normal) Range: 0.450-4.500 43-Wci-475147:37 T4, FREE (THYROXINE) Comments: PATIENT NOT FASTINGPERFORMED BY: [employer]X[address] [id number] BY: Vib[employer] [id number] (55848) T4,Free(Direct) 0.84 ng/dL (Normal) Range: 0.82-1.77 22-Vhl-222590:37 T3, FREE (TRIDOTHYRONINE) Comments: PATIENT NOT FASTINGPERFORMED BY: [employer]X[address] [id number] BY: [employer] [id number] (52107) Triiodothyronine (T3), Free 2.6 pg/mL (Normal) Range: 2.0-4.4 50-Vum-893729:37 CALCIFIDIOL (19499) VIT D Comments: PATIENT NOT FASTINGPERFORMED BY: Viblio[address] Clark Streetblin [place] [id number] BY: [address] [id number] 25 Vitamin D, 25-Hydroxy 42.6 ng/mL (Normal) Range: 30.0-100.0 Comments: Vitamin D deficiency has been defined by the [place] of[place] and an Endocrine Society practice guideline as alevel of serum 25-OH vitamin D less than 20 ng/mL (1,2).The Endocrine Society went on to further define vitamin Dinsufficiency as a level between 21 and 29 ng/mL (2).1. IOM ([place] of Medicine). 2010. Dietary reference intakes for calcium and D. [place]: The National Academies Press.2. Gabbi MF, iSngh MCKEON, Pollo JOSEPH, et al. Evaluation, treatment, and prevention of vitamin D deficiency: an Endocrine Society clinical practice guideline. JCEM. 2010; 96(7):1911-30. 87-Shp-188527:37 TRILEPTAL-OXCARBAZEPINE 154870 Comments: send results to dr delgado too; PATIENT NOT FASTINGPERFORMED BY: [employer]6370 [facility] [id number] BY: [employer] [id number] (23767) Oxcarbazepine 49 ug/mL (Abnormal) Range: 10-35 Comments: Detection Limit = 1 68-Mqv-021210:37 CBC with auto diff Comments: send results to dr sandy storm; PATIENT NOT FASTINGPERFORMED BY: [employer] Daimjh1569 [facility] [id number] BY: [employer] [id number] (90091) Immature Grans (Abs) 0.0 {x10E3/uL} (Normal) Range: [...] 3.77-5.28 WBC 6.3 {x10E3/uL} (Normal) Range: 3.4-10.8 35-Uwb-267616:37 METABOLIC PANEL, Comments: send results to dr delgado too; PATIENT NOT FASTINGPERFORMED BY: [facility] Cmciur7861 [facility] [id number] BY: [facility] [address] [id number] [facility] ([address]) ALT (SGPT) 38 [iU]/L (Abnormal) Range: 0-32 [...] 6-20 Glucose 237 mg/dL (Abnormal) Range: 65-99 46-Rak-479858:37 HGB A1C (38126) Comments: PATIENT NOT FASTINGPERFORMED BY: CB [facility] Dmhkmd1993 [facility] [id number] BY: BN [facility] [address] [id number] Hemoglobin A1c 6.3 % (Abnormal) Range: 4.8-5.6 Comments: . Prediabetes: 5.7 - 6.4 Diabetes: >6.4 Glycemic control for adults with diabetes: <7.0 44-Dle-570766:00 Urinalysis, Complete Comments: How was Urine Obtained? [facility]ENW[facility] [address]ypzklew[address] [place], [place], [address] MUCUS, URINE 0 SEEN {/hpf} (Normal) BACTERIA [...] (Abnormal) CLARITY Clear (Normal) COLOR Yellow (Normal) 47-Cmt-239193:50 Basic Metabolic Profile (BMP) Comments: [facility] [address] [place], [place], [address] GAP 8 (Normal) Range: 5-15 CO2 28.0 [...] A.D.A. criteria.Please note revised GLUCOSE reference range gzgavcydx83/02/2018. 80-Dyl-586387:50 CBC W/Diff, Automated Comments: [facility] [address] [place], [address] Absolute Lymph 1.52 {X10_3/ul} (Normal) [...] 4.2-5.4 WBC 6.0 K/mm3 (Normal) Range: 4.4-11.0 91-Vxt-02654:00 Lactic Acid Comments: Yes/No query for Sepsis Lactate Rule [facility] [address] [place], [place], [address] LACTIC ACID 2.0 mmol/L (Normal) Range: 0.4-2.0 Comments: Critical Result(s) Called at: 18:33:30 01/24/2018 by:Yohana Cabreracobre [facility] 29-Xub-061124:39 TSH (66437) Comments: PATIENT NOT FASTINGPERFORMED BY: CB [facility] Fjzzck4698 [facility] [id number] BY: BN [facility] [address] [id number] TSH 1.150 {uIU/mL} (Normal) Range: 0.450-4.500 64-Myj-799666:39 METABOLIC PANEL, Comments: PATIENT NOT FASTINGPERFORMED BY: Electro-LuminXEnglewood Hospital and Medical CenterRifizd4099 [facility] [id number] BY: V[employer] [id number] COMPREHENSIVE (32074) ALT (SGPT) 18 [iU]/L (Normal) Range: 0-32 [...] Glucose, Serum 138 mg/dL (Abnormal) Range: 65-99 87-Rwd-718488:39 CBC W/AUTO DIFF WBC Comments: PATIENT NOT FASTINGPERFORMED BY: Electro-LuminXEnglewood Hospital and Medical CenterEiaqvx0738 [facility] [id number] BY: [employer]-[address] [id number] (25785) Immature Grans (Abs) 0.0 {x10E3/uL} (Normal) Range: [...] 3.77-5.28 WBC 6.6 {x10E3/uL} (Normal) Range: 3.4-10.8 13-Iqc-247865:39 TRILEPTAL-OXCARBAZEPINE 978564 Comments: PATIENT NOT FASTINGPERFORMED BY: CB [facility] Zyhehk0316 [facility] [id number] BY: BN [facility] [address] [id number] (52216) Oxcarbazepine 28 ug/mL (Normal) Range: 10-35 Comments: Detection Limit = 1 90-Icy-466749:39 CALCIFIDIOL (18890) VIT D Comments: PATIENT NOT FASTINGPERFORMED BY: [employer] Jburmp3871 [facility] [id number] BY: [employer] [id number] 25 Vitamin D, 25-Hydroxy 56.3 ng/mL (Normal) Range: 30.0-100.0 Comments: Vitamin D deficiency has been defined by the [place] of[place]icine and an Endocrine Society practice guideline as alevel of serum 25-OH vitamin D less than 20 ng/mL (1,2).The Endocrine Society went on to further define vitamin Dinsufficiency as a level between 21 and 29 ng/mL (2).1. IOM ([place] of Medicine). 2010. Dietary reference intakes for calcium and D. [place]: The National Academies Press.2. Gabbi MF, Singh [place], Pollo JOSEPH, et al. Evaluation, treatment, and prevention of vitamin D deficiency: an Endocrine Society clinical practice guideline. JCEM. 2010; 96(7):1911-30. 98-Kdc-456713:39 HGB A1C (43541) Comments: PATIENT NOT FASTINGPERFORMED BY: [employer] Dfyceo6076 [facility] [id number] BY: [employer]-[address] [id number] Hemoglobin A1c 5.7 % (Abnormal) Range: 4.8-5.6 Comments: . Pre-diabetes: 5.7 - 6.4 Diabetes: >6.4 Glycemic control for adults with diabetes: <7.0 20-Apr-20174:11 THROAT CULTURE (38628) Comments: PATIENT NOT FASTINGPERFORMED BY: [employer] Iteqxz6273 [facility] [id number] Information: SRC:TH Result 1 RRF (Normal) Comments: Routine respiratory jasper Upper Respiratory Culture Final report (Normal) 94-Spd-683093:35 CBC W/Diff, Automated Comments: [facility] [address] [place], [address] Absolute Lymph 1.23 {X10_3/ul} (Normal) Range: 0.83-4.51 [...] 4.2-5.4 WBC 4.9 K/mm3 (Normal) Range: 4.4-11.0 77-Vpq-527394:35 CRP Comments: [facility] N[address]jbviihs[address]00 [facility] [place], [address] C-REACTIVE PROT < 2.90 mg/L (Normal) Range: 0.0-3.0 Comments: C-Reactive Protein (CRP) provides useful information for thediagnosis, therapy and monitoring of inflammatory processesand associated diseases. For the evaluation of Relative Riskfor Cardiovascular Dise ase, a High Sensitivity CRP (HSCRP)should be ordered. 2-Poh-769847:15 Culture, Nose Comments: [facility] Omjnlblysp0812 [facility] [place], [address] CUN See Note (Normal) Comments: Comments: THICK [...] S(NF) indicates non-formulary drug at [facility]. Ap proval by Infectious Disease Specialist required before non-formulary drugs may be ordered and/or dispensed. Pseudomonas aeroginosa: REACTION Cefepime $ <=1 S Ceftazidime *NF 2 S Ciprofloxacin $ 2 I Gentamicin $ <=1 S Imipenem *NF 1 S Levofloxacin $ 4 I Piperacillin/Tazobactam $$ 8 S Tobramycin $ <=1 S(NF) rocky cates non-formulary drug at [facility]. Approval by Infectious Disease Specialist required before non-formulary drugs may be ordered and/or dispensed. 59-Dit-661873:34 LIPID PANEL (05074) Comments: PATIENT NOT FASTINGPERFORMED BY: [facility] Fvofrw5830 [facility] [id number] BY: [facility] [address] [id number] LDL/HDL Ratio 1.5 {ratio_units} (Normal) Range: 0.0-3.2 Comments: LDL/HDL Ratio Men Women 1/2 Avg.Risk 1.0 1.5 Av g.Risk 3.6 3.2 2X Avg.Risk 6.2 5.0 3X Avg.Risk 8.0 6.1 LDL Cholesterol Calc 76 mg/dL (Normal) Range: 0-99 VLDL Cholesterol Dirk 17 mg/dL (Normal) Range: 5-40 HDL Cholesterol 50 mg/dL (Normal) Triglycerides 84 mg/dL (Normal) Range: 0-149 Cholesterol, Total 143 mg/dL (Normal) Range: 100-199 27-Swc-607906:34 METABOLIC PANEL, Comments: PATIENT NOT FASTINGPERFORMED BY: [employer]70 [facility] [id number] BY: [employer] [id number] [facility] ([address]) ALT (SGPT) 20 [iU]/L (Normal) Range: 0-32 [...] Glucose, Serum 137 mg/dL (Abnormal) Range: 65-99 59-Mhm-451448:34 CBC with auto diff Comments: PATIENT NOT FASTINGPERFORMED BY: [employer]6370 [facility] [id number] BY: [facility] [address] [id number] ([address]) Immature Grans (Abs) 0.0 {x10E3/uL} (Normal) Range: [...] 3.77-5.28 WBC 4.5 {x10E3/uL} (Normal) Range: 3.4-10.8 67-Rmd-209333:34 TRILEPTAL-OXCARBAZEPINE 215975 Comments: PATIENT NOT FASTINGPERFORMED BY: [facility] Aeibuo8890 [facility] [id number] BY: [facility] [address] [id number] (05919) Oxcarbazepine 23 ug/mL (Normal) Range: 10-35 Comments: Detection Limit = 1 22-Wgk-668779:34 HGB A1C (44430) Comments: PATIENT NOT FASTINGPERFORMED BY: [facility] Jwkkso5888 [facility] [id number] BY: [facility] Vgyonnnqfr8204 [facility] [id number] Hemoglobin A1c 6.1 % (Abnormal) Range: 4.8-5.6 Comments: . Pre-diabetes: 5.7 - 6.4 Diabetes: >6.4 Glycemic control for adults with diabetes: <7.0 55-Vrl-844045:34 CALCIFIDIOL (26246) VIT D Comments: PATIENT NOT FASTINGPERFORMED BY: [facility] Bhpmrw8558 [place] [facility] [id number] BY: [facility] Yffglcolrp2598 [facility] [id number] 25 Vitamin D, 25-Hydroxy 49.1 ng/mL (Normal) Range: 30.0-100.0 Comments: Vitamin D deficiency has been defined by the [place] ofMedicine and an Endocrine Society practice guideline as alevel of serum 25-OH vitamin D less than 20 ng/mL (1,2).The Endocrine Society went on to further define vitamin Dinsufficiency as a level between 21 and 29 ng/mL (2).1. IOM ([place] of Medicine). 2010. Dietary reference intakes for calcium and D. [place]: The National Academies Press.2. Gabbi MF, Singh NC, Pollo JOSEPH, et al. Evaluation, treatment, and prevention of vitamin D deficiency: an Endocrine Society clinical practice guideline. JCEM. 2010; 96(7):1911-30. 89-Ycq-390917:15 Culture, Throat Comments: [facility] Xwq[address]ut[address] [place], [place], [id number] CUT See Note (Normal) Comments: Culture, ThroatMixed normal respiratory jasper. No Haemophilus, Streptococcus pneumoniae, beta-hemolytic Streptococcus or Staphylococcus aureus isolated. Copy of report sent to Infection Control Pr inter [id number] 01/04/17 1408 MELANIE. ORGANISM 1: Serratia marcescensAmount Growth 1+ Serratia marcescens: REACTION Amoxacillin/Clavulanic Acid $ >=32 R Cefazolin $ >=64 R Cefepime $ <=1 S Ceftriaxone $ <=1 S Ciprofloxacin $ <=0.25 S Ertapenim $$$ <=0.5 S Gentamicin $ <=1 S Levofloxacin $ 0.5 S Tobramycin $ <=1 S Trimethoprim/Sulfametho $ <=20 S(NF) indicates non-formulary drug at [facility]. Approval by Infec tious Disease Specialist required before non-formulary drugs may be ordered and/or dispensed. 24-Yos-11149:30 Culture, Wound Comments: [facility] Exaqqex[address] [place], [address] CUW See Note (Normal) Comments: Comments: COLLECTED FROM TRACHEA STOMA/DX THICK SPUTUMGram StainGram Stain No organisms seen Wound CultureNo Haemophilus, Streptococcus pneumoniae, beta-hemolytic Streptococcus or Staphylococcus aureu s isolated. Copy of report sent to Infection Control Printer MS#[id number] 12/09/16 7081 DCANNON. ORGANISM 1: Serratia marcescensAmount Growth 1+ [...] S(NF) indicates non-formulary drug at [facility]. Approval by Infectious Disease Specialist required before non-formulary drugs may be ordered and/or dispensed. Pseudomonas aeroginosa: REACTION Cefepime $ <=1 S Ceftazidime *NF <=1 S Ciprofloxacin $ 0.5 S Gentamicin $ <=1 S Imipenem *NF 1 S Levofloxacin $ 1 S Piperacillin/Tazobactam $$ 8 S Tobramycin $ <=1 S(NF) indicates non-formulary drug at [facility]. Approval b y Infectious Disease Specialist required before non-formulary drugs may be ordered and/or dispensed. :37 Base Excess ISTAT Comments: [place] [address] [place] [address] BE ISTAT 6 mmol/L (Abnormal) :37 Bicarbonate ISTAT Comments: [place] [address] [place] [address] HCO3 ISTAT 30 mmol/L (Abnormal) Range: 22-26 Comments: Site = R BrachialAllens Test = NAMode = A-CDevice = VentFIO2 = 40Results To = ED MDTime Given = 2350MV = 4.5VT = 250RR = 21PEEP = 7 :37 Blood Gas Specimen Type Comments: [place] [address] [place], [place] [address] BLD GAS TYPE ART (Normal) 27-Thb-670944:37 pCO2 - ISTAT 40.0 {mmHg} (Normal) Comments: [place] [address] [place] [address] Range: 35-45 72-Tgh-988627:37 pH - I-STAT 7.48 (Abnormal) Comments: [place] [address] [place] 15[address]91 Range: 7.35-7.45 54-Tbo-522588:37 PO2 I-STAT 65 {mmHG} (Abnormal) Comments: [place] [address] [place] [address] Range: 75-100 92-Zzp-528139:37 SO2 ISTAT 94 % (Abnormal) Comments: [place] [address] [place] [address] Range: 95-99 52-Epw-598246:37 Total Carbon Dioxide ISTAT Comments: [facility] LaboratoryPoint of Yckm[address] [place] 24[address]71 TOTAL CO2 ISTAT 31 mmol/L (Normal) 52-Ydf-817072:55 Basic Metabolic Profile (BMP) Comments: [facility] Ifscyuirba1900 [place], [address] GAP 5 (Normal) Range: 5-15 CO2 [...] 7-18 GLU 79 mg/dL (Normal) Range: 70-110 46-Ckt-429316:55 CBC W/Diff, Automated Comments: [facility] Skzadporpt9352 [place], [address] Absolute Lymph 1.51 {X10_3/ul} (Normal) Range: [...] 4.2-5.4 WBC 4.6 K/mm3 (Normal) Range: 4.4-11.0 9-Fhm-018031:52 Anaerobic and Aerobic Comments: PERFORMED BY: [facility] CenterUukzod9400 [facility] [id number] Information: buttock SRC:WO Culture Antimicrobial MIHEAD (Normal) [...] 72 hours. Anaerobic Culture Final report (Normal) 8-Xxk-380316:39 CBC With Differential/Platelet Comments: PERFORMED BY: CB [facility] Ulnmub4627 [facility] [id number] BY: BN [facility] [address] [id number] Immature Grans (Abs) 0.0 {x10E3/uL} (Normal) Range: [...] 3.77-5.28 WBC 5.1 {x10E3/uL} (Normal) Range: 3.4-10.8 :39 Comp. Metabolic Panel Comments: PERFORMED BY: groSolarlin6370 [facility] [id number] BY: LabRedRover[address] [id number] (14) ALT (SGPT) 27 [iU]/L (Normal) Range: [...] 65-99 :39 Oxcarbazepine (Trileptal),S Comments: PERFORMED BY: [employer] [facility] [place] [id number] BY: [address] [id number] Oxcarbazepine 24 ug/mL (Normal) Range: 10-35 Comments: Detection Limit = 1 :39 TSH 1.640 {uIU/mL} Comments: PERFORMED BY: [place] [address]3770 [facility] [id number] BY: [address] [id number] (Normal) Range: 0.450-4.500 :39 Vitamin B12 and Folate Comments: PERFORMED BY: [address] [id number] BY: [address] [id number] Folate (Folic Acid), 8.0 ng/mL (Normal) Comments: A serum folate concentration of less than 3.1 ng/mL isconsidered to represent clinical deficiency. Serum Vitamin B12 1048 pg/mL Range: 211-946 (Abnormal) : Vitamin D, 40.7 ng/mL (Normal) Comments: PERFORMED BY: [place] [address]3770 [facility] [id number] BY: [address] [id number] 39 25-Hydroxy Range: 30.0-100.0 Comments: Vitamin D deficiency has been defined by the [place] ofMedicine and an Endocrine Society practice guideline as alevel of serum 25-OH vitamin D less than 20 ng/mL (1,2).The Endocrine Society went on to further define vitamin Dinsufficiency as a level between 21 and 29 ng/mL (2).1. IOM ([place] of Medicine). 2010. Dietary reference intakes for calcium and D. [place]: The National Academies Press.2. Gabbi MF, Singh NC, Pollo JOSEPH, et al. Evaluation, treatment, and prevention of vitamin D deficiency: an Endocrine Society clinical practice guideline. JCEM. 2010; 96(7):1911-30. 86-Dks-301155:00 Urinalysis, Complete Comments: Order Date: 02/28/16How was Urine Obtained? [facility] Mjoonicmzl53[address] [place], [place], [id number] MUCUS, URINE RARE {/hpf} (Normal) BACTERIA 0 [...] CLARITY Sl. Cloudy (Normal) COLOR Yellow (Normal) 31-Xpi-493491:00 Basic Metabolic Profile (BMP) Comments: [facility] Mxuxmxjliq[address] [place], [place], [address] GAP 8 (Normal) Range: 5-15 CO2 26.0 [...] 7-18 GLU 84 mg/dL (Normal) Range: 70-110 75-Nbz-061161:00 CBC W/Diff, Automated Comments: [facility] Rnwbhyxpjn[address] [place], [place], [address] Absolute Lymph 1.11 {X10_3/ul} (Normal) Range: 0.83-4.51 [...] 4.2-5.4 WBC 5.5 K/mm3 (Normal) Range: 4.4-11.0 86-Dor-835640:00 Lactic Acid Comments: [facility] Uiqodbelsf7706 [address] [place], [address] LACTIC ACID 1.6 mmol/L (Normal) Range: 0.4-2.0 55-Eqj-362624:00 Lipase Comments: [address] [place], [address] LIPASE 177 U/L (Normal) Range: 73-393 57-Aic-314120:00 Liver Profile Comments: [address] [place], [address] D BILI 0.08 mg/dL (Normal) Range: [...] (Normal) Range: 6.4-8.2 :30 CDIFF (Molecular) Comments: [address] [place], [address] CDIFF See Note (Normal) Comments: Cdiff-MolecularC. Diff DNA Negative- No toxigenic C. Diff DNA Detected :30 ENTERIC PATHOGEN PANEL STOOL Comments: [address] [place], [address] EP PANEL See Note (Normal) Comments: [...] DetectedVIBRIO Not DetectedNorovirus Not DetectedRotavirus Not Detected 19-Feb-20167:30 Stool Lactoferrin/WBC Comments: [facility] [address]skis[address] [place], [address] WBCST See Note (Normal) Comments: Stool Lacto/WBCFecal WBC Lactoferrin Negative: No Fecal WBC Lactoferrin present :30 Stool Occult Blood iFOB Comments: [address] [place], [address] STOB See Note (Normal) Comments: STOB iFOBOccult Blood Negative 42-Ysd-922026:35 Urinalysis, Complete Comments: How was Urine Obtained? CATHETER SPECIMENW[address] [place], [address] MUCUS, URINE 0 SEEN {/hpf} [...] (Normal) CLARITY Cloudy (Normal) COLOR Yellow (Normal) 84-Voo-481608:00 CBC W/Diff, Automated Comments: [address] [place], [address] SMEAR COMMENT SCANNED (Normal) Comments: [...] 4.2-5.4 WBC 6.8 K/mm3 (Normal) Range: 4.4-11.0 28-Hyj-130793:00 Comprehensive Metabolic Profil Comments: [facility] Bcxyjzvgrd[address]1 [place], [address] GAP 9 (Normal) Range: 5-15 CO2 29.0 [...] 7-18 GLU 84 mg/dL (Normal) Range: 70-110 90-Etq-793025:00 Lactic Acid Comments: [facility] Nrfxspklcq80[address] [place], [address] LACTIC ACID 2.6 mmol/L (Abnormal) Range: 0.4-2.0 72-Zag-931991:00 Partial Thromboplast Time Comments: [facility] Qdpozuzaim6165 [place] [place], [address] PTT 26.7 s (Normal) Range: 24.1-36.2 45-Ayy-918994:00 Prothrombin Time w/INR Comments: [facility] Poznziglok[address] [place], [place], [id number] INR 1.0 (Normal) PROTIME 13.1 s (Normal) Range: 11.7-14.9 20-Jan-20161:25 PREALBUMIN (68353) Comments: PERFORMED BY: [facility]6370 [facility] [id number] Prealbumin 27 mg/dL (Normal) Range: 9-31 Comments: [...] - 36 >70 years 9 - 32 25-Lxn-895986:16 Clostridium difficile Toxin Comments: PERFORMED BY: [facility] CenterLmarxa1821 [facility] [id number] A+B, EIA (99071) C difficile Toxins A+B, EIA Negative (Normal) 27-Coa-314884:00 Culture, Urine Comments: [facility] V[address]scp[address]udm[address] [place], [address] CUUR See Note (Normal) Comments: Urine CultureCulture exhibits no growth. 86-Wcb-428122:00 Urinalysis, Complete Comments: How was Urine Obtained? CLEAN [facility] Nspiefcnyt[address] [place], [address] MUCUS, URINE 0 SEEN {/hpf} [...] CLARITY Sl. Cloudy (Normal) COLOR Yellow (Normal) 76-Dqn-370379:30 Culture, Urine Comments: [facility] Drlclqffbt75[address] [place], [address] CUUR See Note (Normal) Comments: Urine CultureORGANISM 1: Enterococcus faecalisColony Count >100,000 Enterococcus faecalis: REACTION Ampicillin $ <=2 S Benzylpenicillin NF 2 S Ciprofloxacin $ <=0.5 S Gentamicin SYN-S S Levofloxacin $ 1 S Linezolid $$$$ 2 S Nitrofurantoin $ <=16 S Streptomycin $ SYN- S S Tetracycline NF >=16 R Vancomycin $ 1 S(NF) indicates non-formulary drug at [facility]. Approval by Infectious Disease Specialist required before non-formulary drugs may be ordered and/or dispensed. * CLSI guidelines does not recommend testing of cephalosporins. This interpretation is deduced from Beta-lactam/penicillin results. 39-Xxa-967839:30 Urinalysis, Complete Comments: How was Urine Obtained? Urine, [facility] Rrgwzxlpeo8542 [facility] [place], [address] MUCUS, URINE 0 SEEN {/hpf} [...] CLARITY Sl. Cloudy (Normal) COLOR Yellow (Normal) 68-Vdc-901508:00 ENTERIC PATHOGEN PANEL STOOL Comments: [facility] Okboqxghyj5983 [facility] [place], [place], [phone] EP PANEL See Note (Normal) Comments: RESULTS CALLED TO DR. HOUSTON 09/10/15 @5763 BY [facility].EP PANEL STOOLNot detected for Campylobacter group, Salmonella species, Shigella species, Vibrio Group, Yersinia enterocolitica, EHEC (Shiga Toxin 1, Shiga Toxin 2), Norovirus Gl/Gll, and Rotavirus A. Other common stool pathogens are not detected on this panel include: Aeromonas/Plesiomonas or parasites. Order testing for these organisms kylaha amador if suspected. This is an amplified DNA test which makes it both specific and sensitive. CAMPYLOBACTER Not DetectedSalmonella Not DetectedShigella sp. Not DetectedShiga Toxin Not DetectedYersinia Not DetectedVIBRIO Not DetectedNorovirus Not DetectedRotavirus Not Detected 33-Wfm-115937:00 Stool Lactoferrin/WBC Comments: [facility] Zsvobokxey[address]. [place], [place], [address] WBCST See Note (Normal) Comments: RESULTS CALLED TO DR. HOUSTON 09/10/15 @1952 BY THADDEUS.Stool Lacto/WBCFecal WBC Lactoferrin Negative: No Fecal WBC Lactoferrin present 03-Pzg-753064:00 Stool Occult Blood iFOB Comments: [facility] Msmmgumoau[address] [place], [place], [address] STOB See Note (Normal) Comments: RESULTS CALLED TO DR. HOUSTON 09/10/15 @1952 BY THADDEUS.STOB iFOBOccult Blood Negative :29 CBC with auto diff Comments: PERFORMED BY: [facility] Eumvvz9206 [facility] [id number] BY: [facility] [address] [id number] (257[address]) Immature Grans (Abs) 0.0 {x10E3/uL} (Normal) Range: [...] METABOLIC PANEL, Comments: PERFORMED BY: CB [facility] Wnxkll3414 [facility] [id number] BY: BN [facility] [address] [id number] COMPREHENSIVE (04214) ALT (SGPT) 17 [iU]/L (Normal) Range: 0-32 [...] 73 mg/dL (Normal) Range: 65-99 :29 CALCIFIDIOL (87441) VIT D Comments: PERFORMED BY: [employer] [facility] [id number] BY: [employer]-[address] [id number] 25 Vitamin D, 25-Hydroxy 39.5 ng/mL (Normal) Range: 30.0-100.0 Comments: Vitamin D deficiency has been defined by the [place] ofMedicine and an Endocrine Society practice guideline as alevel of serum 25-OH vitamin D less than 20 ng/mL (1,2).The Endocrine Society went on to further define vitamin Dinsufficiency as a level between 21 and 29 ng/mL (2).1. IOM ([place] of Medicine). 2010. Dietary reference intakes for calcium and D. [place]: The National Academies Press.2. Gabbi MF, Singh [place], Pollo JOSEPH, et al. Evaluation, treatment, and prevention of vitamin D deficiency: an Endocrine Society clinical practice guideline. JCEM. 2010; 96(7):1911-30. 20-Jan-20161:29 TRILEPTAL-OXCARBAZEPINE [id number] Comments: PERFORMED BY: [employer]70 [facility] [id number] BY: [employer] [id number] ([address]) Oxcarbazepine 38 ug/mL (Abnormal) Range: 10-35 Comments: Detection Limit = 1 05-Ryk-986896:30 CBC W/Diff, Automated Comments: [facility] Ivebdmspew[address] [place], [place], [address] Absolute Lymph 0.90 {X10_3/ul} (Normal) Range: 0.83-4.51 [...] 4.2-5.4 WBC 5.2 K/mm3 (Normal) Range: 4.4-11.0 53-Dqb-392735:30 Comprehensive Metabolic Profil Comments: [facility] Zfhknzomtr54[address] [place], [place], [address] GAP 8 (Normal) Range: 5-15 CO2 26.0 [...] 200 mg/dLsuggests DIABETES MELLITUS per A.D.A. criteria. 72-Ncj-590458:30 Lipid Profile Comments: [facility] Veengtvbul9375 [address] [place], [place], [address] VLDL 38 mg/dL (Normal) Range: 5-40 LDL [...] 200-240 mg/dL Borderline >240 mg/dL High Risk 75-Cav-594576:30 Prealbumin Comments: [facility] Mtyrgslpcg6894 [place], [address] PREALBUMIN 26.0 mg/dL (Normal) Range: 20.0-40.0 83-Uya-131185:30 Thyroid Stim Hormone (TSH) Comments: [facility] Fhfedseied9801 [place], [address] TSH 1.02 {uIU/mL} (Normal) Range: 0.358-3.74 23-Ime-566628:30 Trileptal-Oxcarbazepine Comments: [facility] (refer to report for specific site)refer to report for address and phone number TRILEPT [id number] 38 ug/mL (Abnormal) Range: 10-35 Comments: Detection Limit = 1Performed at: [facility] LabCo[address] [id number] Director: Reji Gibson MD, Phone: [phone] 67-Xpq-568733:30 Vitamin D,25 Hydroxy Comments: [facility] Abemvauphx[address] [place] [address] [place], [id number] Vitamin D 25-OH 38.4 ng/mL (Normal) Comments: Vitamin D 25(OH) Status Range Deficiency <20 ng/mL (50nmol/L) Insuffciency 20 - 30 ng/mL (50 - 75 nmol/L) Sufficiency 30 - 100 ng/mL (75 - 250 nmol/L) Toxicity >100 ng/mL (>250 nmol/L) 9-Vcy-948417:45 CBC-Complete Blood Cnt No Diff Comments: Test performed at:[facility] Doiq[address]if[address] [place] [address] [place] 47[address] MPV 10.5 fL (Normal) Range: 6.2-12.0 PLT [...] 4.2-5.4 WBC 6.3 K/mm3 (Normal) Range: 4.4-11.0 7-Alt-021311:45 Comprehensive Metabolic Profil Comments: Is Patient Taking Vitamins or Folic Acid Supplements? NTest performed at:[facility] Ygxswsspwy[address] [place], [place] [address] GAP 7 (Normal) Range: 5-15 CO2 29.0 [...] <126 mg/dLsuggests IMPAIRED HOMEOSTASIS per A.D.A. criteria. 9-Ezs-098696:45 CRP Comments: Is Patient Taking Vitamins or Folic Acid Supplements? NTest performed at:[address] [place] [address] C-REACTIVE PROT < 2.90 mg/L (Normal) Range: 0.0-3.0 Comments: C-Reactive Protein (CRP) provides useful information for thediagnosis, therapy and monitoring of inflammatory processesand associated diseases. For the evaluation of Relative Riskfor Cardiovascular Dise ase, a High Sensitivity CRP (HSCRP)should be ordered. :45 Erythrocyte Sed Rate Comments: Test performed at:[address] [place] [address] SED RATE 13 mm/h (Normal) Range: 0-20 :45 Folates, (Folic Acid) Comments: Is Patient Taking Vitamins or Folic Acid Supplements? NTest performed at:[address] [place] [address] FOLATES 15.70 ng/mL (Normal) Range: 3.1-17.5 :45 Free T3 Comments: Is Patient Taking Vitamins or Folic Acid Supplements? NTest performed at:[address] [place] [address] FREE T3 2.4 pg/mL (Normal) Range: 2.18-3.98 :45 Miscellaneous Lab Procedure Comments: Test(s) Ordered: OXCARBAZEPINE, #[id number], RED TOP SERUM/RFTest performed at:[address] [place] [address] MISC Comments: Oxcarbazepine (Trileptal), S Oxcarbazepine 35 ug/mL Ref: 35 Detection Limit=1 TESTING PERFOR MED AT [facility] (Normal) rp. ORIGINAL REPORT ON FILE IN LAB CONTAINS ADDITIONAL TEST SITE INFORMATION. TEST :45 Prealbumin Comments: Is Patient Taking Vitamins or Folic Acid Supplements? NTest performed at:[facility] [address]af[address]ko[address] [place] [address] PREALBUMIN 30.9 mg/dL (Normal) Range: 20.0-40.0 :45 ,Serum,hCG Quali. Comments: Test performed at:[facility] [address] [place] [address] HCGSQUAL NEGATIVE {Negative} (Normal) Range: 0-9 Nonpreg HCG Qual triggr < 1 m[iU]/mL (Normal) :45 Prolactin Comments: Is Patient Taking Vitamins or Folic Acid Supplements? NTest performed at:[facility] [address] [place], [place] [address] PROLACTIN 9.5 ng/mL (Normal) Comments: NORMAL REFERENCE RANGES FEMALE NON- 2.2 - 30.3 ng/mL 8.1 - 347.6 ng/mL POST-MENOPAUSAL 0.7 - 3 1.5 ng/mL MALE 2.5 - 17.4 ng/mLNEW TEST METHOD AND REFERENCE RANGES FEBRUARY 01, 2012:45 T4 Free Direct Comments: Is Patient Taking Vitamins or Folic Acid Supplements? NTest performed at:[facility] [address] [place] [address] T4 FREE DIRECT 0.74 ng/dL (Abnormal) Range: 0.76-1.46 :45 Thyroid Stim Hormone (TSH) Comments: Is Patient Taking Vitamins or Folic Acid Supplements? NTest performed at:[facility] [address] [place] [address] TSH 1.39 {uIU/mL} (Normal) Range: 0.358-3.74 :45 Urinalysis, Routine (Dipstick) Comments: How was Urine Obtained? Urine, RandomTest performed at:[facility] [address]cl[address] [place] [address] LEUK ESTERASE 500 /ul (Abnormal) OCCULT BLOOD-UR Negative /ul (Normal) NITRITE UR Negative (Normal) UROBILI Normal mg/dL (Normal) PROT DIPSTX Negative mg/dL (Normal) pH UR 8.0 (Normal) Range: 5.0 - 8.0 SP.GR. DIPSTX 1.010 (Normal) Range: 1.002-1.030 KETONE UR Negative mg/dL (Normal) BILIRUBIN URINE Negative mg/dL (Normal) GLUCOSE, UR Normal mg/dL (Normal) CLARITY Sl. Cloudy (Normal) COLOR Yellow (Normal) 9-Xej-797887:45 Vitamin B12 1089 pg/mL (Abnormal) Comments: Test performed at:[facility] [address]spq[address] [place] [address] Range: 211-911 8-Uwc-428239:45 Vitamin D,25 Hydroxy Comments: Test performed at:[facility] [address] [place] [address] Vitamin D 25-OH 23.9 ng/mL (Normal) Comments: Vitamin D 25(OH) Status Range Deficiency <20 ng/mL (50nmol/L) Insuffciency 20 - 30 ng/mL (50 - 75 nmol/L) Sufficiency 30 - 100 ng/mL (75 - 250 nmol/L) Toxicity >100 ng/mL (>250 nmol/L) 99-Vuv-735390:43 ALBUMIN SERUM (63693) Comments: PATIENT NOT FASTINGPERFORMED BY: [facility] [id number] Albumin, Serum 4.7 g/dL (Normal) Range: 3.5-5.5 26-Omw-909764:43 PREALBUMIN (25266) Comments: PATIENT NOT FASTINGPERFORMED BY: [facility] [id number] Prealbumin 29 mg/dL (Normal) Range: 20-40 19-Qbr-751266:21 ANJELICA CULTURE-OTHER (73436) Comments: PATIENT NOT FASTINGPERFORMED BY: SEWORKSox RoadDublin [place] [id number] Information: SRC:THRT [id number] Result 1 RRF (Normal) Comments: Routine respiratory jasper Upper Respiratory Culture Final report (Normal) 55-Ezh-959263:43 PROLACTIN (08979) Comments: PATIENT NOT FASTINGPERFORMED BY: [facility]6370 [facility] [id number] Prolactin 13.8 ng/mL (Normal) Range: 4.8-23.3 96-Ugp-964971:43 T3, FREE (TRIDOTHYRONINE) (26943) Comments: PATIENT NOT FASTINGPERFORMED BY: [place] 4703770 [facility] [id number] Triiodothyronine,Free,Serum 3.3 pg/mL (Normal) Range: 2.0-4.4 03-Xjn-561899:43 T4, FREE (THYROXINE) (83081) Comments: PATIENT NOT FASTINGPERFORMED BY: [facility]6370 [facility] [id number] T4,Free(Direct) 1.14 ng/dL (Normal) Range: 0.82-1.77 46-Tfv-317974:43 TSH (40789) Comments: PATIENT NOT FASTINGPERFORMED BY: [facility]6370 [facility] [id number] Information: [id number] TSH 1.580 {uIU/mL} (Normal) Range: 0.450-4.500 14-Pct-666815:00 CBCD ANC 1.8 {X10_3/uL} (Abnormal) Range: 2.0-7.7 [...] CDIFF See Note (Normal) Comments: FAXED TO [employer] C. Diff DNA Positive-Toxigenic C. Difficile DNA Detected : CUST SHIGA See Note (Normal) CULST See Note (Normal) Comments: No Salmonella, Shigella, Yersinia or Campylobacter isolated. No significant amount of Staphylococcus aureus or yeast-like organisms isolated. : OP See Note (Normal) Comments: OVA AND PARASITES EXAM, ROUTINE These results were obtained using wet preparation(s) and trichrome stained smear. This test does not include testing for Crytosporidium parvum, Cyclo spora, or Mi crosporidia. TESTING PERFORMED AT [facility]. ORIGINAL REPORT ON FILE IN LAB CONTAINS ADDITIONAL TEST SITE INFORMATION. Ova/Parasite Exam NO OVA, CYSTS, OR PARASITES FOUND. :30 STOB See Note (Normal) Comments: Occult Blood Negative :30 WBCST See Note (Normal) Comments: Fecal WBC Lactoferrin Negative: No Fecal WBC Lactoferrin present :15 CDIFF See Note (Normal) Comments: C. Diff DNA Negative- No toxigenic C. Diff DNA Detected 8-Ykh-328642:55 Oxcarbazepine (Trileptal),S Comments: PERFORMED BY: [employer] [facility] [id number] BY: [address] [id number] Oxcarbazepine 32 ug/mL (Normal) Range: 10-35 Comments: Detection Limit = 1 :55 CALCIFIDIOL (82877) VIT D Comments: PERFORMED BY: [employer] [facility] [id number] BY: V[employer] [id number] 25 Vitamin D, 25-Hydroxy 27.4 ng/mL (Abnormal) Range: 30.0-100.0 Comments: Vitamin D deficiency has been defined by the [place] [employer] and an Endocrine Society practice guideline as alevel of serum 25-OH vitamin D less than 20 ng/mL (1,2).The Endocrine Society went on to further define vitamin Dinsufficiency as a level between 21 and 29 ng/mL (2).1. IOM ([place] [employer]). 2010. Dietary reference intakes for calcium and D. [place]: The National Academies Press.2. Gabbi MF, Singh MCKEON, Pollo JOSEPH, et al. Evaluation, treatment, and prevention of vitamin D deficiency: an Endocrine Society clinical practice guideline. JCEM. 2010; 96(7):1911-30. :55 Folate (75348) Comments: PERFORMED BY: [employer] [facility] [id number] BY: [address] [id number] Folate (Folic Acid), Serum 16.3 ng/mL (Normal) Comments: A serum folate concentration of less than 3.1 ng/mL isconsidered to represent clinical deficiency. :55 VITAMIN B-12 (CYANOCOBALAMIN) Comments: PERFORMED BY: [employer] [facility] [id number] BY: [address] [id number] (72544) Vitamin B12 889 pg/mL (Normal) Range: 211-946 :55 TSH (42815) Comments: PERFORMED BY: [employer] [facility] [id number] BY: [address] [id number] TSH 1.670 {uIU/mL} (Normal) Range: 0.450-4.500 :55 SED RATE ERYTHROCYTE Comments: PERFORMED BY: [employer] [facility] [id number] BY: [address] [id number] (60016) Sedimentation Rate-Westergren 6 mm/h (Normal) Range: 0-32 :55 METABOLIC PANEL, Comments: PERFORMED BY: [employer]6370 [facility] [id number] BY: [employer] [id number] [facility] (29363) ALT (SGPT) 11 [iU]/L (Normal) Range: 0-32 [...] cells when received.This may adversely affect serumChemistries. 4-Gzc-621008:55 C-REACTIVE PROTEIN (83408) Comments: PERFORMED BY: [employer] [facility] [id number] BY: [employer] [address] [id number] C-Reactive Protein, Quant 0.9 mg/L (Normal) Range: 0.0-4.9 :55 CBC (AUTO) (52203) Comments: PERFORMED BY: [employer] [facility] [id number] BY: [employer] [id number] Platelets 213 {x10E3/uL} (Normal) Range: 140-415 Comments: [...] of these values in the reference population. 2-Sch-252433:29 ANJELICA CULTURE-OTHER (27338) Comments: PATIENT NOT FASTINGPERFORMED BY: [facility] [id number] Information: SRC:THRT [id number] Result 1 RRF (Normal) Comments: Routine respiratory jasper Upper Respiratory Culture Final report (Normal) 3-Sns-842054:03 Rapid Strep Test, Office (52316) Rapid Strep Test, Negative (Normal) Office 49-Ltu-198853:55 CDIF See Note (Normal) Comments: A positive [...] in these cases. C. DIFF ANTIGENS POSITIVE 75-Zpv-025573:30 CDIF See Note (Normal) Comments: RESULTS CALLED [...] in these cases. C. DIFF ANTIGENS NEGATIVE : CU URC Culture exhibits no growth. (Normal) :55 [...] Comments: C. DIFF ANTIGENS NEGATIVE :2 TRILEPT [id number] 20 ug/mL (Normal) Range: 10-35 4 Comments: Detection Limit = 1Performed at: [facility] [address] [id number] Director: Reji Gibson MD, Phone: [phone] 93-Wxq-392879:1 C DIF TOXIN/AG See Note (Normal) Comments: RESULTS CALLED TO 06/23/112004 VONDA ELAM.REPORT READ BACK BY SAME . * This is an amended result. * A 5 prior result that was reported as final has been changed.06/23/112004 by IESHAPreviously reported as: C. DIFF ANTIGENS POSITIVE 75-Siv-732136:46 COMP METABOLIC GAP 11 (Normal) Range: 5-15 [...] 7-18 GLU 71 mg/dL (Normal) Range: 70-110 00-Sdp-910154:41 CBCD ABSOLUTE NEUT 5.0 3/uL (Normal) Range: [...] 4.2-5.4 WBC 7.2 K/mm3 (Normal) Range: 4.4-11.0 6-Whf-437740:49 CULTURE, THROAT See Note (Normal) Comments: Normal [...] Comments: RESULTS CALLED TO OFFICE TO ALEXSANDRA07/17/10 1151 KRISTIAN MILLER.REPORT READ BACK BY SAME . Comments: TESTING DONE BY CRISELDA 07/16/10 1845 C. DIFF ANTIGENS POSITIVE :21 CUL STOOL/SHIG Comments: RESULTS CALLED TO OFFICE TO THAISEJCONXDZ44/04/10 115KRISTIAN DAWSON.REPORT READ BACK BY SAME . [...] Cyclospora, or Microspo ridia. TESTING PERFORMED AT [facility]. ORIGINAL REPORT ON FILE IN LAB [...] CALLED TO CHRISTEN 06/25/10 1432 CRISTA BUSTAMANTE C. DIFF ANTIGENS POSITIVE :20 CUL STOOL/SHIG CULTURE, [...] Cyclospora, or Microspo ridia. TESTING PERFORMED AT [facility]. ORIGINAL REPORT ON FILE IN LAB CONTAINS ADDITIONAL TEST SITE INFORMATION. OVA/ PARASITES EXAM NO OVA, CYSTS, OR PARASITES FOUND. :20 WBC,STOOL See Note (Normal) Comments: FECAL WBCs NONE SEEN 86-Sam-428082:14 C DIF TOXIN See Note (Normal) :44 O AND P See Note (Normal) Comments: OVA AND PARASITES EXAM, ROUTINE These results were obtained using wet preparation(s) and trichrome stained smear. This test does not include testing for Crytosporidium parvum, Cyclospora, or Microspo ridia. TESTING PERFORMED AT [facility]. ORIGINAL REPORT ON FILE IN LAB [...] Cyclospora, or Microspo ridia. TESTING PERFORMED AT [facility]. ORIGINAL REPORT ON FILE IN LAB [...] 3.5-5.1 NA 141 mmol/L (Normal) Range: 136-145 13-Jun-20090:00 CBCD BASO% 0.5 % (Normal) Range: 0-1 [...] :00 TSH 1.63 {uIU/mL} (Normal) Range: 0.358-3.74 49-Ddi-859512:00 CULTURE, SPUTUM GRAM STAIN See Note (Normal) Comments: GRAM STAIN RARE WHITE BLOOD CELLS RARE GRAM POSITIVE COCCI RARE GRAM NEGATIVE RODS Plan of Care Name Dates Details Instructions Type II diabetes mellitus, well controlled : Continue Current Prescription(s) Indication: Type II diabetes mellitus, well controlled Convulsions : Reviewed Dot Net Developer Letter Indication: Convulsions Neuromuscular scoliosis : Follow [...] Cystitis, acute Planned Observations URINE ANJELICA CULTURE-IDENTIFICATN (41518)Indication: Abnormal urine On: 0-Rdk-223019:25 Request MRSA Culture (90634)Indication: Thick sputum On: 6-Nrm-351934:32 Request Anaerobic & Aerobic Culture (09196)Indication: Thick sputum On: 88-Qzg-183868:46 Request Comments: collected from trachea stoma Anaerobic & Aerobic Culture (79157)Indication: Cellulitis of groin, right On: 1-Bva-156986:44 Request TRILEPTAL-OXCARBAZEPINE 912114 (87895)Indication: Diarrhea On: 2-Fwq-205886:24 Request VITAMIN B12 AND FOLATES (92487)Indication: Diarrhea On: 5-Nnj-361132:24 Request CALCIFEDIOL (82380)Indication: Diarrhea On: 4-Bta-880501:24 Request CALCIFEDIOL (91994)Indication: Diarrhea On: 0-Jif-205355:23 Request TSH (THYROID STIMULATING HORMONE) (10476)Indication: Diarrhea On: :23 Request METABOLIC PANEL, COMPREHENSIVE (49578)Indication: Diarrhea On: 4-Crz-246439:23 Request CBC, PLATELETS & AUT DIFF (43918)Indication: Diarrhea On: 1-Uji-845307:23 Request OVA & PARASITE DIR SMEAR (18768)Indication: Diarrhea On: 55-Rvr-296258:46 Request ANJELICA CULTURE-STOOL (15705)Indication: Diarrhea On: :46 Request OCCULT BLOOD FECES SCREEN (45782)Indication: Diarrhea On: :46 Request LEUKOCYTE COUNT, FECAL (85467)Indication: Diarrhea On: :46 Request C-DIFFICILE, STOOL (01611)Indication: Diarrhea On: :46 Request OVA & PARASITE DIR SMEAR (18913)Indication: C. difficile diarrhea On: :50 Request OCCULT BLOOD FECES SCREEN (65358)Indication: C. difficile diarrhea On: :50 Request ANJELICA CULTURE-STOOL (20352)Indication: C. difficile diarrhea On: :50 Request LEUKOCYTE COUNT, FECAL (91554)Indication: C. difficile diarrhea On: :50 Request C-DIFFICILE, STOOL (99468)Indication: C. difficile diarrhea On: :49 Request Clostridium difficile Culture (12500)Indication: Diarrhea On: 1-Nrm-453250:52 Request URINALYSIS, W/ MICRO (02336)Indication: Dysuria On: :56 Request URINE ANJELICA CULTURE-SISSY COL COUNT (64499)Indication: Dysuria On: :54 Request OCCULT BLOOD FECES SCREEN (50330)Indication: Diarrhea On: :01 Request LEUKOCYTE COUNT, FECAL (44472)Indication: Diarrhea On: :05 Request ANJELICA CULTURE-STOOL (79107)Indication: Diarrhea On: :05 Request Clostridium difficile Toxin A+B, EIA (71000)Indication: Diarrhea On: :05 Request TRILEPTAL-OXCARBAZEPINE 648134 (09917)Indication: Convulsions On: :55 Request PREALBUMIN (24889)Indication: Nutritional assessment On: :45 Request CALCIFIDIOL (79257) VIT D 25Indication: Vitamin D deficiency On: :44 Request TSH (18277)Indication: Hypertension On: :44 Request METABOLIC PANEL, COMPREHENSIVE (69076)Indication: Hypertension On: :44 Request LIPID PANEL (30344)Indication: Hypertension On: :44 Request CBC with auto diff (09521)Indication: Hypertension On: :44 Request Metabolic Panel, Basic (72175)Indication: Abnormal urine On: :03 Request VITAMIN B12 AND FOLATES (61408)Indication: Abnormal urine On: : Request CALCIFEDIOL (58033)Indication: Abnormal urine On: 8-Chw-292579:03 Request Comments: vit d3 URINE ANJELICA CULTURE-SISSY COL COUNT (77932)Indication: Abnormal urine On: :52 Request TRILEPTAL-OXCARBAZEPINE 395006 (55958)Indication: Cerebral palsy On: :46 Request HCG Qualitative, Serum (82606)Indication: Amenorrhea On: :45 Request PROLACTIN (20606)Indication: Amenorrhea On: :44 Request PREALBUMIN (89271)Indication: Cerebral palsy On: 86-Vwg-726233:43 Request URINALYSIS (20332)Indication: Fatigue On: :43 Request T3, FREE (TRIDOTHYRONINE) (01249)Indication: Fatigue On: :43 Request T4, FREE (THYROXINE) (53489)Indication: Fatigue On: :43 Request Folate (25972)Indication: Fatigue On: :42 Request CALCIFIDIOL (52135) VIT D 25Indication: Fatigue On: 03-Qoa-634580:42 Request VITAMIN B-12 (CYANOCOBALAMIN) (29181)Indication: Fatigue On: 25-Jwa-719409:42 Request TSH (92251)Indication: Fatigue On: :42 Request SED RATE ERYTHROCYTE (30168)Indication: Fatigue On: 70-Qwj-560839:42 Request METABOLIC PANEL, COMPREHENSIVE (90576)Indication: Fatigue On: 14-Foe-024541:42 Request C-REACTIVE PROTEIN (25442)Indication: Fatigue On: 19-Sez-935101:42 Request CBC (AUTO) (77199)Indication: Fatigue On: 00-Msd-444058:42 Request CULTURE,BODY FLUID (63485)Indication: Irregular Menstrual Cycle (Renamed from Irregular bleeding) On: 62-Gbd-743087:07 Request Comments: urine Rapid Strep Test, Office (99462)Indication: Pharyngitis, acute On: 69-Zfi-389444:51 Request Urinalysis, Office (16486)Indication: Fatigue On: 04-Nne-838543:49 Request HgA1C , Office (56604)Indication: Hyperglycemia On: 12-Qqu-939548:41 Request CALCIFIDIOL (13983) VIT D 25Indication: Vitamin D deficiency On: :32 Request TRILEPTAL-OXCARBAZEPINE 364835 (76047)Indication: Convulsions On: :31 Request Metabolic Panel, Comprehensive (40423)Indication: Acute renal failure On: :31 Request CBC with manual diff (17448)Indication: Hypertension On: :31 Request CBC with manual diff (31375)Indication: Thrombocytopenia, unspecified On: :35 Request Comments: in citrate tube FIBRINOGEN (91187)Indication: Thrombocytopenia, unspecified On: :35 Request PTT (Activated Partial Thromboplastin Time) (02651)Indication: Thrombocytopenia, unspecified On: :35 Request PT (Prothrobim Time) (00335)Indication: Thrombocytopenia, unspecified On: :35 Request HEPATITIS C ANTIBODY (33872)Indication: Thrombocytopenia, unspecified On: :35 Request HEPATITIS B CORE ANTBD-IGG/IGM (63876)Indication: Thrombocytopenia, unspecified On: :35 Request HEPATITIS B SURFACE ANTIGEN (49566)Indication: Thrombocytopenia, unspecified On: :35 Request HEPATITIS B SURFACE ANTIBODY (63309)Indication: Thrombocytopenia, unspecified On: :35 Request Methylmalonic acid, serum 18067Lkclcjkwyk: Thrombocytopenia, unspecified On: :35 Request Vitamin B-12 (cyanocobalamin) (70627)Indication: Thrombocytopenia, unspecified On: :35 Request Sed Rate Erythrocyte (99151)Indication: Thrombocytopenia, unspecified On: :35 Request Metabolic Panel, Comprehensive (85996)Indication: Thrombocytopenia, unspecified On: :35 Request JENNY (ANTINUCLEAR ANTIBODY) (66122)Indication: Thrombocytopenia, unspecified On: :35 Request CBC with manual diff (96527)Indication: Convulsions On: 71-Jvl-810250:31 Request Clostridium difficile Toxin A+B, EIA (34036)Indication: Diarrhea On: :31 Request OVA & PARASITE DIR SMEAR (43863)Indication: Diarrhea On: :44 Request OCCULT BLOOD FECES SCREEN (41936)Indication: Diarrhea On: :44 Request LEUKOCYTE COUNT, FECAL (26982)Indication: Diarrhea On: :44 Request ANJELICA CULTURE-STOOL (95944)Indication: Diarrhea On: :44 Request Clostridium difficile Toxin A+B, EIA (69265)Indication: Diarrhea On: 10-Obv-197736:22 Request C DIFF AMPLIFIED PROBE (72121)Indication: Diarrhea On: 76-Zrb-11191:51 Request Metabolic Panel, Comprehensive (82635)Indication: Acute renal failure On: :08 Request Comments: recheck prior to August. CALCIFIDIOL (18690) VIT D 25Indication: Vitamin D deficiency On: :08 Request Comments: recheck prior to August. TRILEPTAL-OXCARBAZEPINE 113963 (65760)Indication: Convulsions On: 1-Kci-459511:08 Request Culture, Stool (16142)Indication: Diarrhea On: :01 Request C DIFF AMPLIFIED PROBE (76313)Indication: Diarrhea On: :01 Request C DIFF AMPLIFIED PROBE (13236)Indication: Diarrhea On: 46-Wqn-430659:32 Request C DIFF AMPLIFIED PROBE (17217)Indication: Diarrhea On: 17-Iec-339872:51 Request URINE ANJELICA CULTURE-IDENTIFICATN (01561)Indication: Backache On: 4-Ybm-387635:58 Request URINALYSIS (76450)Indication: Backache On: 1-Oui-534998:58 Request Metabolic Panel, Comprehensive (93811)Indication: Profound mental retardation (Renamed from IQ under 20) On: 4-Ylt-333450:25 Request Comments: Dr Pino neurologist at [facility] CBC (Auto) (89944)Indication: Profound mental retardation (Renamed from IQ under 20) On: 2-Prr-504452:25 Request TRILEPTAL-OXCARBAZEPINE 810963 (51319)Indication: Cerebral palsy On: 1-Rsu-693477:24 Request COLUMN CHROMATOGRAPHY, SISSY, SINGLE (91687)Indication: Convulsions On: 08-Cly-762822:54 Request Comments: trileptal 509877 Clostridium difficile Toxin A+B, EIA (69796)Indication: Diarrhea On: 94-Ipm-005633:26 Request CBC (Auto) (14822)Indication: Convulsions On: 50-Tdx-923331:25 Request Metabolic Panel, Comprehensive (10991)Indication: Convulsions On: 71-Bmq-038890:24 Request ANJELICA CULTURE-OTHER (23597)Indication: Pharyngitis, acute On: 7-Tak-555437:44 Request C.Difficile, Stool (99022)Indication: Diarrhea On: 06-Iqf-259463:48 Request ANJELICA CULTURE-STOOL (92956)Indication: Diarrhea On: :55 Request C.Difficile, Stool (83475)Indication: Diarrhea On: :54 Request LEUKOCYTE COUNT, FECAL (35960)Indication: Diarrhea On: :27 Request OVA & PARASITE DIR SMEAR (45188)Indication: Diarrhea On: :27 Request C.Difficile, Stool (72644)Indication: Diarrhea On: :27 Request ANJELICA CULTURE-STOOL (49354)Indication: Diarrhea On: :27 Request TSH (91884)Indication: Unspecified bacterial pneumonia On: 9-Tuc-595821:48 Request CBC, Platelets & Auto Diff (38345)Indication: Unspecified bacterial pneumonia On: :48 Request Magnesium (09727)Indication: Unspecified bacterial pneumonia On: 2-Wvm-910420:48 Request Phosphorus (82879)Indication: Unspecified bacterial pneumonia On: 6-Dsk-397521:48 Request Metabolic Panel, Basic (73283)Indication: Unspecified bacterial pneumonia On: 9-Lxb-729079:48 Request Planned Encounters Medical; 4 Month FU - On: 10-Oct-2018 13:15 [facility] Lara Sandra Lara MCCULLOUGHSandra Planned Procedures Flu Vaccine (Quadrivalent) On: 06-Jun-2018 Intent 93612Wq: Lara MCCULLOUGHSandra Comments: Lot #[id number]-L dltd, IMDose prefilled syringegiven by:MARICARMEN Santana reviewed and ABN signed Sandra Bermudez DO Flu Vaccine (Quadrivalent) On: 02-Aug-2017 Intent 31896Sp: Lara MCCULLOUGHSandra Comments: Lot:[id number]:12/29Amt:0.5mlRoute:IMSite: Rt DltdGiven By: ALFREDITO James signed Sandra Bermudez DO Flu Vaccine (Quadrivalent) On: 14-May-2016 Intent 00069Bn: Roe Baxter MD Comments: Lot #[id number]-L dltd, IMDose prefilled syringegiven by:ALFREDITO Godlberg and ABN signed ADMINISTRATION OF INFLUENZA On: 02-Aug-2015 Intent VIRUS VACCINE (G0008)By: Linda Houston MD Flu Vaccine (Quadrivalent) On: 02-Aug-2015 Intent 60085Dm: Linda Houston MD Comments: Lot #:[id number] date:Amount given:0.5mlRoute: IMSite given:L DltdGiven by: Jessica BASSETT and ABN signed Quad Flu ELECTROCARDIOGRAM, COMPLETE On: 21-Mar-2015 Intent (ECG) (64640)By: Linda Houston MD CT - Brain/Head (IV Contrast On: 29-Nov-2014 Intent Needed)By: Linda Houston MD ADMINISTRATION OF INFLUENZA On: 06-Aug-2014 Intent VIRUS VACCINE (G0008)By: TIMBO Villegas Flu Vaccine (Quadrivalent) On: 06-Aug-2014 Intent 22123Co: TIMBO Villegas Comments: Lot #:[id number] date:mount given:0.5mlRoute: IM Site given:Given by: to be given per patient home health nurse CATHETERIZE FOR URINE SPEC On: 09-Mar-2014 Intent (P9612)By: Linda Houston MD Comments: pls use pediatric cath- and fax results to [phone] SPECIMEN HNDLNG/TRNSPRT, OFFC > On: 09-Mar-2014 Intent LAB (58831)By: Linda Houston MD IMMUNIZ ADMNIN, 1 VAC, On: 28-Jul-2013 Intent SNGL/COMBO (46826)By: Archie BOLDEN, Comments: Lot #[id number] to nurse for admin Jessica Stack FLU VAC, SPLIT, >3 YEARS, On: 28-Jul-2013 Intent INTRAMUSC (24370)By: Jessica Almanza LPN SPECIMEN HNDLNG/TRNSPRT, OFFC > On: 18-May-2013 Intent LAB (54581)By: Linda Houston MD Eprescribed prescriptions On: 18-May-2013 Intent (G8553)By: Jessica Almanza LPN FLU VAC, SPLIT, >3 YEARS, On: 23-Jun-2011 Intent INTRAMUSC (64470)By: Archie BOLDEN, Comments: Lot #[id number]-L arm, IMDose prefilledgiven by:Jessica Stack IMMUNIZ ADMNIN, 1 VAC, On: 23-Jun-2011 Intent SNGL/COMBO (68257)By: Jessica Almanza LPN Instructions Name Dates Details [...] : Patient Instructions Indication: Cerebral palsy Encounters Office Visit On: 17-Jun-2018 11:30 Encounter Diagnosis: [...] well. Patient has been compliant with instructions. Nghiaen End: 12-Feb-2016 13:19 t medication use: no [...] for the procedure will be Dr Beck [facility]. The chief complaint is teeth cleanin [...]
--- OUTSIDE RECORDS SUMMARY | 2018-10-08 11:25 | XMS RPT_ITS | Continuity of Care Document ---
:1990 Author Organization [facility] Address [address] [place] [address] Phone Care Team Providers Name Role Phone [...] Propionate 50 MCG/ACT Nasal Suspension 2 (two) Luning(s) Luning(s) each nostril qd for 90 days Quantity: 1 {QS} Refills: 3 Ordered:16-Sep-2017 Karin Bermudez DO, DO, Kathleen Start : 16-Sep-2017 Active Lantus SoloStar 100 UNIT/ML Subcutaneous Solution Pen-injector 4 Unit bid for 30 days Quantity: 1 {Box} Refills: 3 Ordered:20-Jun-2018 Karin Bermudez DO, DO, Kathleen Start : 20-Jun-2018 Active Miconazole Nitrate 2 % External Cream 1 (one) Cream Cream three times daily for 10 days Quantity: 1 {Tube} Refills: 1 Ordered:14-May-2016 Daisy Pineda LPN Start : 14-May-2016 Active NAPHCON-A, 0.025-0.3% (Ophthalmic Solution) 1-2 gtt gtt up to qid prn for redness/itching for 0 days Quantity: 1 {Each} Refills: 0 Ordered:20-Jan-2016 Linda [place] MD Start : 20-Jan-2016 Active Nyamyc 957383 UNIT/GM External Powder uad Powder to affected area(s) bid and prn for 0 days Quantity: 15 {Bottle} Refills: 6 Ordered:19-Nov-2017 Karin Bermudez DO, DO, Kathleen Start : 19-Nov-2017 End : 17-Nov-2013 Active Nystatin 103963 UNIT/GM External Cream uad Cream to affected area(s) bid prn for 7 days Quantity: 1 {Bottle} Refills: 3 Ordered:03-Jun-2018 Karin Bermudez DO, DO, Kathleen Start : 03-Jun-2018 Active Nystatin 579042 UNIT/ML Mouth/Throat Suspension 5 ml ml 5 times day for 10 days Quantity: 250 {Milliliter} Refills: 9 Ordered:03-Apr-2016 Jessica Almanza LPN Start : 03-Apr-2016 Active Nystatin Powder 1 Powder Powder tid for 10 days Quantity: 1 {Bottle} Refills: 3 Ordered:28-Jun-2017 Karin Bermudez DO, DO, Kathleen Start : 28-Jun-2017 Active Pen [place] 31G X 5 MM Miscellaneous 1 (one) [...] for 0 days Refills: 0 Ordered:23-Jun-2011 Long EXTRUSION DIE REPAIRER, Jessica L End : 23-Jun-2011 Inactive LevoFLOXacin [...] for 0 days Refills: 0 Ordered:23-Jun-2011 Long EXTRUSION DIE REPAIRER, Jessica L End : 23-Jun-2011 Inactive MUCINEX FOR KIDS, 100MG/5ML (Oral Liquid) Liquid 15 cc tid 14 days for 0 days Refills: 0 Ordered:23-Jun-2011 Long EXTRUSION DIE REPAIRER, Jessica L Start : 13-Jun-2009 End : [...] nostril qd for 0 days Quantity: 1 {Luning} Refills: 3 Ordered:09-Apr-2015 Linda [place] MD Start : 09-Apr-2015 End : 20-Jan-2016 Discontinued Comments:This order discontinued per [employer]. MUCOMYST, 20% (Inhalation Solution) 1 bid/prn for 0 days Refills: 0 Ordered:23-Jun-2011 Long EXTRUSION DIE REPAIRER, Jessica L End : 23-Jun-2011 Discontinued Comments:This order discontinued per [employer]. VYTONE, 1-1% (External Cream) Cream bid for 0 days Quantity: 1 {Cream} Refills: 3 Ordered:13-Jun-2009 Long EXTRUSION DIE REPAIRER, Jessica L Start : 13-Jun-2009 End : [...] Comments: See Note; NOTES: [facility] [address] [place] [address] OFFICE VISIT Date of Service: 05/25/18 MR#: [id number] Acct: [id number] Name: MIGUEL MANDY Rickey Rep #: [id number] : 1990 Provider: Lawrence Weiner MD Age/Sex: 28/F Location: [facility].PMW Status: Signed Assessment AND Plan Problems 1. [...] Department Summary Result: Comments: See Note; NOTES: [facility] Medical Records Department [address] [facility] [place] [address] Emergency Department Summary 01/24/18 1645 MR#: [id number] Acct: [id number] Name: MANDY MONTERO Rep #: [id number] : 1990 27 From: Stephan Hughes MD [...] Discharged to home Impression: 1. Cellulitis left [facility] 2. Dysuria of unknown etiology 3. History of MRDD 4. History of Propulsid 5. History of chronic respiratory failure on ventilator This note was generated with Epochation software. It m ay contain incorrect words, [...] Instructions: Mandy prescription was electronically transmitted to [place] [facility], your [facility] What to do if you have Problems For any increased pain, shortness of breath, bleeding, nausea or vomiting, chest pain, or any unexpected problems, contact your Primary Care Provider. Call [facility] ([phone]) or report to the closest Emergency Room. Call 911 if necessary. 01/24/18 4803 <Electronically signed by Stephan Hughes MD> Date Stephan Hughes MD Cosigner Signature (If Indicated): Date CC: Sandra Lara DO 10-Dec-2017 Pulmonary Visit Report Result: Comments: See Note; NOTES: [facility] [place] [address] [place] [address] OFFICE VISIT Date of Service: 12/09/17 MR#: [id number] Acct: [id number] Name: MANDY MONTERO Rep #: [id number] : 1990 Provider: Lawrence Weiner MD Age/Sex: 27/F Location: [facility] Status: Signed Assessment AND Plan 1. [...] Comments: See Note; NOTES: [facility] [place] [address] [place] [address] OFFICE VISIT Date of Service: 09/02/17 MR#: [id number] Acct: [id number] Name: MANDY MONTERO Rep #: [id number] : 1990 Provider: Lawrence Weiner MD Age/Sex: 27/F Location: [facility].PM[facility] Status: Signed Assessment AND Plan 1. Spastic [...] mg (10 mL) PO QDAY PRN allergy zjgzigrgX58 .2 Ok to give through PEG Follow Up 3 Months ([facility]) HPI 6 M FU: Chief Complaint: Increased secretions Details: Patient is a 27-year-old female who presents for evaluation secondary to incre ased secretions. Since last visit, patient's mother denies any ER visits, hospitalizations or prednisone burst. Patient does suffer from cerebral palsy and is unable to answer for herself. Patient pres ents on a cot with her mother and healthcare technician assistant. Family reports the patient has [...] Department Summary Result: Comments: See Note; NOTES: [facility] Medical Records Department [address] [place] [address] Emergency Department Summary MR#: [id number] Acct: [id number] Name: MANDY MONTERO Rep #: [id number] : 1990 26 From: Flip Jessica MD [...] . Flip Jessica MD T: NTS JOB: [id number] 03/10/17805 <Electronically signed by Flip Jessica MD> Date Flip Jesscia MD Cosigner Signat ure (If Indicated): Date CC: Sandra Bermudez DO Date Dictated: 03/06/171722 Date Transcribed: 03/06/171722 Brew House Supervisor: Signed 06-Mar-2017 Discharge Instruction Result: Comments: See Note; NOTES: [facility] Medical Records Department [address] [place] [address] Discharge Instruction 03/06/171719 MR#: [id number] Acct: [id number] Name: ROMELIA MONTERO Rep #: [id number] : 1990 26 From: Flip Jessica MD [...] your Primary Care Provider. Call Doctors Registry ([phone]) or report to the closest Emergency Room. Call 911 if necessary. 03/06/171719 <Electronically signed by Flip Jessica MD> Date Flip Jessica MD Cosigner Signature (If Indicated): Date CC: Sandra Bermudez DO 06-Mar-2017 Chest 1 View Result: Comments: See Note; NOTES: [facility] Imaging Services [address] [place] [address] Verdana 4d Chest 1 View MR#: [id number] Acct: [id number] Name: MANDY MONTERO Rep #: [id number] : 1990 F 26 From: Merritt Bolton MD PCP: Sandra Bermudez DO Status: REG ER Study: Chest 1 View Date of Exam: 03/06/17 Exam# [id number] Ordering Dr: Flip Jessica MD STUDY: X-RAY [...] CC: Flip Jessica MD; Sandra Bermudez DO Brew House Supervisor: Signed 06-Mar-2017 Thoracic Spine 3 Views Result: Comments: See Note; NOTES: [facility] Imaging Services [address] [place] [address] Verdana 4d Thoracic Spine 3 Views MR#: [id number] Acct: [id number] Name: MANDY MONTERO Rep # : [id number] : 1990 F 26 From: Merritt Bolton MD PCP: Sandra Bermudez DO Status: REG ER Study: Thoracic Spine 3 Views Date of Exam: 03/06/17 Exam# [id number] Ordering Dr: Flip Jessica MD [facility] DY: X-RAY - THORACIC SPINE [...] CC: Flip Jessica MD; Sandra Bermudez DO Brew House Supervisor: Signed 10-Sep-2016 Chest 1 View (Portable) Result: Comments: See Note; NOTES: [facility] Imaging Services [address] [place] [address] Verdana 4d Chest 1 View (Portable) MR#: [id number] Acct: [id number] Name: MANDY MONTERO Rep #: [id number] : 1990 F 26 From: Mandy Chávez MD PCP: Sandra Bermudez DO Status: PRE ER Study: Chest 1 View (Portable) Date of Exam: 09/10/16 Exam# [id number] Ordering Dr: Vinnie Sher MD STUDY: X-RAY [...] MD at 23:49 EST , Service support [phone], CC: Linden Sher MD; Sandra Bermudez DO Brew House Supervisor: Signed 12-Mar-2016 Emergency Department Summary Result: Comments: See Note; NOTES: [facility] Medical Records Department [address] [place] [address] Emergency Department Summary MR#: [id number] Acct: [id number] Name: MANDY MONTERO Rep #: [id number] : 1990 25 From: Joseph Mcgee MD [...] Baxter Date Dictated: 02/29/16112 Date Transcribed: 02/29/16112 Brew House Supervisor: Signed 28-Feb-2016 Discharge Instruction Result: Comments: See Note; NOTES: [facility] Medical Records Department [address] [place] [address] [place] [address] Discharge Instruction 02/28/161925 MR#: [id number] Acct: [id number] Name: MIGUELMANDY A Rep #: [id number] : 1990 25 From: Joseph Mcgee MD [...] problems, contact your doctor. Call Doctors Registry ([phone]) or report to the closest Emergency Room. Call 911 if necessary. 224 <Electronically signed by Joseph Mcgee MD> Date Joseph Mcgee MD Cosigner Signature (If Indicated): Date ___ CC: Roe Baxter 28-Feb-2016 Abdomen/Pelvis without Cont Result: Comments: See Note; NOTES: [facility] Imaging Services [address] [place] [address] Verdana 4d Abdomen/Pelvis without Cont MR#: [id number] Acct: [id number] Name: MANDY MONTERO Rep #: [id number] : 1990 F 25 From: Seymour Villagomez MD PCP: Reo Baxter Status: REG ER Study: Abdomen/Pelvis without Cont Date of Exam: 02/28/16 Exam# [id number] Ordering Dr: Joseph Patton MD STUDY: CT [...] MD at 18:47 EDT , Service support [phone], CC: Roe Baxter; Joseph Mcgee MD Brew House Supervisor: Signed 25-Feb-2016 Emergency Department Summary Result: Comments: See Note; NOTES: [facility] Medical Records Department [address] [place] [address] Emergency Department Summary MR#: [id number] Acct: [id number] Name: MANDY MONTERO Rep #: [id number] : 1990 25 From: Tomás Willis MD [...] C: Roe Baxter MD T: JENNIFER JOB: [id number] 02/25/16 1517 <Electronically signed by Tomás Willis MD> Date Tomás Willis MD Cosigner Signature (If Indicated): Date CC: Roe Baxter Date Dictated: 02/23/16 1521 Date Transcribed: 02/23/161520 Brew House Supervisor: Signed 23-Feb-2016 Discharge Instruction Result: Comments: See Note; NOTES: [facility] Medical Records Department [address] [facility] [place] [address] Discharge Instruction 02/23/16 1514 MR#: [id number] Acct: [id number] Name: MANDY MONTERO Rep #: [id number] : 1990 25 From: Tomás Willis MD [...] problems, contact your doctor. Call Doctors Registry ([phone]) or report to the closest Emergency Room. Call 911 if necessary. 6 1516 <Electronically signed by Tomás Willis MD> Date Tomás Willis MD Cosigner Signature (If Indicated): Date CC: Roe Baxter 28-Jan-2016 Chest 1 View (Portable) Result: Comments: See Note; NOTES: [facility] Imaging Services [address] [place] [address] Verdana 4d Chest 1 View (Portable) MR#: [id number] Acct: [id number] Name: MANDY ACUNA Rep #: [id number] : 1990 F 25 From: Abdirahman Awad MD PCP: Linda [place] MD Status: PRE ER Study: Chest 1 View (Portable) Date of Exam: 01/28/16 Exam# [id number] Ordering Dr: Edita Willis MD STUDY: X-RAY [...] MD at 22:53 EDT , Service support [phone], RAD/Chest 1 View (Portable) IMPRESSION: Retrocar diac density in left lower lobe possibly representing atelectasis or infiltrate. Recommend lateral view for further assessment Electronically Signed: Abdirahman Awad MD at 22:53 EDT , Service support [phone], CC: Linda [place] MD; Tomás Willis MD Brew House Supervisor: Signed Family History Unknown Family Member Name [...] Arm; Cuff Size: Standard Weight 87 lb 6-Wtg-093072:54 Pulse 86 /min Comments: Pattern: Regular Respiration Rate 16 /min Comments: Pattern: Unlabored BP Systolic 140 mm[Hg] Comments: Patient Position: Sitting; Cuff Location: Left Arm; Cuff Size: Standard BP Diastolic 110 mm[Hg] Comments: Patient Position: Sitting; Cuff Location: Left Arm; Cuff Size: Standard Weight 80 lb Height 0 in Head Circumference 0.00 cm Results Date Description Value Details :37 TSH (63029) Comments: PATIENT NOT FASTINGPERFORMED BY: [facility]amaCentraState Healthcare SystemQjkywh[address] [place] [address] [id number] BY: [place] [id number] TSH 1.030 {uIU/mL} (Normal) Range: 0.450-4.500 38-Bdl-094424:37 T4, FREE (THYROXINE) Comments: PATIENT NOT FASTINGPERFORMED BY: Roomorama[address] [id number] BY: mobintent[address] [id number] ([address]782) T4,Free(Direct) 0.84 ng/dL (Normal) Range: 0.82-1.77 31-Jzo-698133:37 T3, FREE (TRIDOTHYRONINE) Comments: PATIENT NOT FASTINGPERFORMED BY: Roomorama[address] [id number] BY: mobintent[address] [id number] (70960) Triiodothyronine (T3), Free 2.6 pg/mL (Normal) Range: 2.0-4.4 89-Phb-426852:37 CALCIFIDIOL (52881) VIT D Comments: PATIENT NOT FASTINGPERFORMED BY: mobintent75 [address] Streetbl[address] [place] [id number] BY: Roomorama[address] [id number] 25 Vitamin D, 25-Hydroxy 42.6 ng/mL (Normal) Range: 30.0-100.0 Comments: Vitamin D deficiency has been defined by the [place] [employer] and an Endocrine Society practice guideline as alevel of serum 25-OH vitamin D less than 20 ng/mL (1,2).The Endocrine Society went on to further define vitamin Dinsufficiency as a level between 21 and 29 ng/mL (2).1. IOM ([place] [employer]). 2010. Dietary reference intakes for calcium and D. [place]: The National Academies Press.2. Gabbi MF, Singh MCKEON, Pollo JOSEPH, et al. Evaluation, treatment, and prevention of vitamin D deficiency: an Endocrine Society clinical practice guideline. JCEM. 2010; 96(7):1911-30. 30-Krd-321416:37 TRILEPTAL-OXCARBAZEPINE 909877 Comments: send results to dr delgado too; PATIENT NOT FASTINGPERFORMED BY: DemandTec6370 [facility] [id number] BY: Roomorama[address] [id number] (35208) Oxcarbazepine 49 ug/mL (Abnormal) Range: 10-35 Comments: Detection Limit = 1 39-Gjq-285278:37 CBC with auto diff Comments: send results to dr sandy storm; PATIENT NOT FASTINGPERFORMED BY: Taxi[employer]i Kdjmve8595 [facility] [id number] BY: Roomorama[address] [id number] ([address]329) Immature Grans (Abs) 0.0 {x10E3/uL} (Normal) Range: [...] 3.77-5.28 WBC 6.3 {x10E3/uL} (Normal) Range: 3.4-10.8 44-Bhh-199693:37 METABOLIC PANEL, Comments: send results to dr delgado too; PATIENT NOT FASTINGPERFORMED BY: [facility] Seiyza4676 [facility] [id number] BY: [facility] [address] [id number] [facility] ([address]) ALT (SGPT) 38 [iU]/L (Abnormal) Range: 0-32 [...] 6-20 Glucose 237 mg/dL (Abnormal) Range: 65-99 74-Gmn-386043:37 HGB A1C (35222) Comments: PATIENT NOT FASTINGPERFORMED BY: CB [facility] Learlj4353 [facility] [id number] BY: BN [facility] [address] [id number] Hemoglobin A1c 6.3 % (Abnormal) Range: 4.8-5.6 Comments: . Prediabetes: 5.7 - 6.4 Diabetes: >6.4 Glycemic control for adults with diabetes: <7.0 44-Lay-790571:00 Urinalysis, Complete Comments: How was Urine Obtained? [facility]WC[facility] [address] [place], [place], [address] MUCUS, URINE 0 SEEN {/hpf} (Normal) BACTERIA [...] (Abnormal) CLARITY Clear (Normal) COLOR Yellow (Normal) 60-Uzm-795057:50 Basic Metabolic Profile (BMP) Comments: [facility] [address] [place], [place], [address] GAP 8 (Normal) Range: 5-15 CO2 28.0 [...] A.D.A. criteria.Please note revised GLUCOSE reference range yecpayaex31/02/2018. 40-Evh-659373:50 CBC W/Diff, Automated Comments: [facility] [address] [place], [address] Absolute Lymph 1.52 {X10_3/ul} (Normal) [...] 4.2-5.4 WBC 6.0 K/mm3 (Normal) Range: 4.4-11.0 11-Uhg-11618:00 Lactic Acid Comments: Yes/No query for Sepsis Lactate Rule [facility] [address]ir[address] [place], [place], [address] LACTIC ACID 2.0 mmol/L (Normal) Range: 0.4-2.0 Comments: Critical Result(s) Called at: 18:33:30 01/24/2018 by:Yohana Cabrerawinslow [facility] 87-Vpv-224645:39 TSH (23805) Comments: PATIENT NOT FASTINGPERFORMED BY: CB [facility] Fdvzoj0737 [facility] [id number] BY: BN [facility] [address] [id number] TSH 1.150 {uIU/mL} (Normal) Range: 0.450-4.500 97-Usd-728439:39 METABOLIC PANEL, Comments: PATIENT NOT FASTINGPERFORMED BY: RoomoramaCentraState Healthcare SystemEgwcjw0366 [facility] [id number] BY: mobintent[address] [id number] COMPREHENSIVE (65950) ALT (SGPT) 18 [iU]/L (Normal) Range: 0-32 [...] Glucose, Serum 138 mg/dL (Abnormal) Range: 65-99 31-Mnc-049082:39 CBC W/AUTO DIFF WBC Comments: PATIENT NOT FASTINGPERFORMED BY: RoomoramaCentraState Healthcare SystemGbfdwp4249 [facility] [id number] BY: Roomorama[address] [id number] ([address]907) Immature Grans (Abs) 0.0 {x10E3/uL} (Normal) Range: [...] 3.77-5.28 WBC 6.6 {x10E3/uL} (Normal) Range: 3.4-10.8 76-Odu-226390:39 TRILEPTAL-OXCARBAZEPINE 807490 Comments: PATIENT NOT FASTINGPERFORMED BY: CB [facility] Jnkbon3332 [facility] [id number] BY: BN [facility] [address] [id number] ([address]) Oxcarbazepine 28 ug/mL (Normal) Range: 10-35 Comments: Detection Limit = 1 91-Azx-948466:39 CALCIFIDIOL (22429) VIT D Comments: PATIENT NOT FASTINGPERFORMED BY: [employer] Hjcsug6117 [facility] [id number] BY: mobintent[address] [id number] 25 Vitamin D, 25-Hydroxy 56.3 ng/mL (Normal) Range: 30.0-100.0 Comments: Vitamin D deficiency has been defined by the [place] of[place] and an Endocrine Society practice guideline as alevel of serum 25-OH vitamin D less than 20 ng/mL (1,2).The Endocrine Society went on to further define vitamin Dinsufficiency as a level between 21 and 29 ng/mL (2).1. IOM ([place] [employer]). 2010. Dietary reference intakes for calcium and D. [place]: The National Academies Press.2. Gabbi MF, Singh [place], Pollo JOSEPH, et al. Evaluation, treatment, and prevention of vitamin D deficiency: an Endocrine Society clinical practice guideline. JCEM. 2010; 96(7):1911-30. 21-Nqe-509084:39 HGB A1C (12084) Comments: PATIENT NOT FASTINGPERFORMED BY: [employer] Mdnson7426 [facility] [id number] BY: Roomorama[address] [id number] Hemoglobin A1c 5.7 % (Abnormal) Range: 4.8-5.6 Comments: . Pre-diabetes: 5.7 - 6.4 Diabetes: >6.4 Glycemic control for adults with diabetes: <7.0 20-Apr-20174:11 THROAT CULTURE (49083) Comments: PATIENT NOT FASTINGPERFORMED BY: [employer]ama Klkxaz7597 [facility] [id number] Information: SRC:TH Result 1 RRF (Normal) Comments: Routine respiratory jasper Upper Respiratory Culture Final report (Normal) 39-Pqt-078870:35 CBC W/Diff, Automated Comments: [facility] [address] [place], [address] Absolute Lymph 1.23 {X10_3/ul} (Normal) Range: 0.83-4.51 [...] 4.2-5.4 WBC 4.9 K/mm3 (Normal) Range: 4.4-11.0 07-Tlm-686571:35 CRP Comments: [facility] [address]ozcg[address]307 [facility] [place], [address] C-REACTIVE PROT < 2.90 mg/L (Normal) Range: 0.0-3.0 Comments: C-Reactive Protein (CRP) provides useful information for thediagnosis, therapy and monitoring of inflammatory processesand associated diseases. For the evaluation of Relative Riskfor Cardiovascular Dise ase, a High Sensitivity CRP (HSCRP)should be ordered. 7-Sih-467829:15 Culture, Nose Comments: [facility] [address] [facility] [place], [address] CUN See Note (Normal) Comments: Comments: THICK [...] $ <=20 S(NF) indicates non-formulary drug at [facility]. Ap proval by Infectious Disease Specialist required before non-formulary drugs may be ordered and/or dispensed. Pseudomonas aeroginosa: REACTION Cefepime $ <=1 S Ceftazidime *NF 2 S Ciprofloxacin $ 2 I Gentamicin $ <=1 S Imipenem *NF 1 S Levofloxacin $ 4 I Piperacillin/Tazobactam $$ 8 S Tobramycin $ <=1 S(NF) rocky cates non-formulary drug at [facility]. Approval by Infectious Disease Specialist required before non-formulary drugs may be ordered and/or dispensed. 10-Mxk-031889:34 LIPID PANEL (22142) Comments: PATIENT NOT FASTINGPERFORMED BY: [facility] Dlmiiw7911 [facility] [id number] BY: [facility] [address] [id number] LDL/HDL Ratio 1.5 {ratio_units} (Normal) Range: 0.0-3.2 Comments: LDL/HDL Ratio Men Women 1/2 Avg.Risk 1.0 1.5 Av g.Risk 3.6 3.2 2X Avg.Risk 6.2 5.0 3X Avg.Risk 8.0 6.1 LDL Cholesterol Calc 76 mg/dL (Normal) Range: 0-99 VLDL Cholesterol Dirk 17 mg/dL (Normal) Range: 5-40 HDL Cholesterol 50 mg/dL (Normal) Triglycerides 84 mg/dL (Normal) Range: 0-149 Cholesterol, Total 143 mg/dL (Normal) Range: 100-199 92-Lny-923717:34 METABOLIC PANEL, Comments: PATIENT NOT FASTINGPERFORMED BY: ParaEngine70 [facility] [id number] BY: Roomorama[address] [id number] [facility] ([address]) ALT (SGPT) 20 [iU]/L (Normal) Range: 0-32 [...] Glucose, Serum 137 mg/dL (Abnormal) Range: 65-99 31-Wer-830464:34 CBC with auto diff Comments: PATIENT NOT FASTINGPERFORMED BY: Swagbucks6370 [facility] [id number] BY: [facility] [address] [id number] (08476) Immature Grans (Abs) 0.0 {x10E3/uL} (Normal) Range: [...] 3.77-5.28 WBC 4.5 {x10E3/uL} (Normal) Range: 3.4-10.8 35-Eag-236320:34 TRILEPTAL-OXCARBAZEPINE 562330 Comments: PATIENT NOT FASTINGPERFORMED BY: [facility] Drodse9078 [facility] [id number] BY: [facility] [address] [id number] ([address]) Oxcarbazepine 23 ug/mL (Normal) Range: 10-35 Comments: Detection Limit = 1 41-Mcz-841045:34 HGB A1C (00923) Comments: PATIENT NOT FASTINGPERFORMED BY: [facility] Damnlq5210 [facility] [id number] BY: [facility] Khpgglppyy0547 [facility] [id number] Hemoglobin A1c 6.1 % (Abnormal) Range: 4.8-5.6 Comments: . Pre-diabetes: 5.7 - 6.4 Diabetes: >6.4 Glycemic control for adults with diabetes: <7.0 27-Oxx-696272:34 CALCIFIDIOL (88922) VIT D Comments: PATIENT NOT FASTINGPERFORMED BY: [facility] Gtvmff9205 [facility] [id number] BY: [facility] Pinmlejewz9996 [facility] [id number] 25 Vitamin D, 25-Hydroxy 49.1 ng/mL (Normal) Range: 30.0-100.0 Comments: Vitamin D deficiency has been defined by the [place] [employer] and an Endocrine Society practice guideline as alevel of serum 25-OH vitamin D less than 20 ng/mL (1,2).The Endocrine Society went on to further define vitamin Dinsufficiency as a level between 21 and 29 ng/mL (2).1. IOM ([place] [employer]). 2010. Dietary reference intakes for calcium and D. [place]: The National Academies Press.2. Gabbi MF, Singh NC, Pollo JOSEPH, et al. Evaluation, treatment, and prevention of vitamin D deficiency: an Endocrine Society clinical practice guideline. JCEM. 2010; 96(7):1911-30. 15-Hkx-391214:15 Culture, Throat Comments: [facility] [address] [place], [place], [address] CUT See Note (Normal) Comments: Culture, ThroatMixed [...] $ <=20 S(NF) indicates non-formulary drug at [facility]. Approval by Infec tious Disease Specialist required before non-formulary drugs may be ordered and/or dispensed. 41-Fcq-35653:30 Culture, Wound Comments: [facility] [facility] [address] [place], [address] CUW See Note (Normal) Comments: Comments: COLLECTED FROM TRACHEA STOMA/DX THICK SPUTUMGram StainGram Stain No organisms seen Wound CultureNo Haemophilus, Streptococcus pneumoniae, beta-hemolytic Streptococcus or Staphylococcus aureu s isolated. Copy of report sent to Infection Control Printer [id number] 12/09/16 6933 DCANNON. ORGANISM 1: Serratia marcescensAmount Growth 1+ [...] $ <=20 S(NF) indicates non-formulary drug at [facility]. Approval by Infectious Disease Specialist required before non-formulary drugs may be ordered and/or dispensed. Pseudomonas aeroginosa: REACTION Cefepime $ <=1 S Ceftazidime *NF <=1 S Ciprofloxacin $ 0.5 S Gentamicin $ <=1 S Imipenem *NF 1 S Levofloxacin $ 1 S Piperacillin/Tazobactam $$ 8 S Tobramycin $ <=1 S(NF) indicates non-formulary drug at [facility]. Approval b y Infectious Disease Specialist required before non-formulary drugs may be ordered and/or dispensed. :37 Base Excess ISTAT Comments: [place] [address] [place] [address] BE ISTAT 6 mmol/L (Abnormal) :37 Bicarbonate ISTAT Comments: [place] [address] [place] [address] HCO3 ISTAT 30 mmol/L (Abnormal) Range: 22-26 Comments: Site = R BrachialAllens Test = NAMode = A-CDevice = VentFIO2 = 40Results To = ED MDTime Given = 2350MV = 4.5VT = 250RR = 21PEEP = 7 :37 Blood Gas Specimen Type Comments: [place] [address] [place], [place] [address] BLD GAS TYPE ART (Normal) 94-Oko-911162:37 pCO2 - ISTAT 40.0 {mmHg} (Normal) Comments: [place] [address] [place] [address] Range: 35-45 99-Lcg-388309:37 pH - I-STAT 7.48 (Abnormal) Comments: [place] [address] [place] [address] Range: 7.35-7.45 23-Xyj-526775:37 PO2 I-STAT 65 {mmHG} (Abnormal) Comments: [place] [address] [place] [address] Range: 75-100 27-Fmo-954281:37 SO2 ISTAT 94 % (Abnormal) Comments: [place] [address] [place] [address] Range: 95-99 88-Hpl-555382:37 Total Carbon Dioxide ISTAT Comments: [facility] LaboratoryPoint of [address]kn[address] [place] [address]781 TOTAL CO2 ISTAT 31 mmol/L (Normal) 46-Jgz-242865:55 Basic Metabolic Profile (BMP) Comments: [facility] [address] [place], [address] GAP 5 (Normal) Range: 5-15 CO2 [...] 7-18 GLU 79 mg/dL (Normal) Range: 70-110 87-Nmq-628377:55 CBC W/Diff, Automated Comments: [facility] [address] [place], [address] Absolute Lymph 1.51 {X10_3/ul} (Normal) Range: [...] 4.2-5.4 WBC 4.6 K/mm3 (Normal) Range: 4.4-11.0 9-Ziz-685629:52 Anaerobic and Aerobic Comments: PERFORMED BY: [facility] SystemYlmuas3922 [facility] [id number] Information: buttock SRC:WO Culture Antimicrobial MIHEAD (Normal) [...] 72 hours. Anaerobic Culture Final report (Normal) 7-Phf-995986:39 CBC With Differential/Platelet Comments: PERFORMED BY: CB [facility] Zvbmzv6706 [facility] [id number] BY: BN [facility] [address] [id number] Immature Grans (Abs) 0.0 {x10E3/uL} (Normal) Range: [...] :39 Comp. Metabolic Panel Comments: PERFORMED BY: [facility]6[address] [facility] [id number] BY: LabTurnstyle Solutions[address] [id number] (14) ALT (SGPT) 27 [iU]/L (Normal) Range: [...] 65-99 :39 Oxcarbazepine (Trileptal),S Comments: PERFORMED BY: inSparq [facility] [place] [id number] BY: [address] [id number] Oxcarbazepine 24 ug/mL (Normal) Range: 10-35 Comments: Detection Limit = 1 :39 TSH 1.640 {uIU/mL} Comments: PERFORMED BY: [place] [address]13[address] [facility] [id number] BY: [address] [id number] (Normal) Range: 0.450-4.500 :39 Vitamin B12 and Folate Comments: PERFORMED BY: [address] [id number] BY: [address] [id number] Folate (Folic Acid), 8.0 ng/mL (Normal) Comments: A serum folate concentration of less than 3.1 ng/mL isconsidered to represent clinical deficiency. Serum Vitamin B12 1048 pg/mL Range: 211-946 (Abnormal) : Vitamin D, 40.7 ng/mL (Normal) Comments: PERFORMED BY: [place] [address]1370 [facility] [id number] BY: [address] [id number] 25-Hydroxy Range: 30.0-100.0 Comments: Vitamin D deficiency has been defined by the [place] of[place]icine and an Endocrine Society practice guideline as alevel of serum 25-OH vitamin D less than 20 ng/mL (1,2).The Endocrine Society went on to further define vitamin Dinsufficiency as a level between 21 and 29 ng/mL (2).1. IOM ([place] of Medicine). 2010. Dietary reference intakes for calcium and D. [place]: The National Academies Press.2. Gabbi MF, Singh NC, Pollo JOSEPH, et al. Evaluation, treatment, and prevention of vitamin D deficiency: an Endocrine Society clinical practice guideline. JCEM. 2010; 96(7):1911-30. 97-Kut-100925:00 Urinalysis, Complete Comments: Order Date: 02/28/16How was Urine Obtained? [facility]WC[facility] [address]zzcf[address] [place], [place], [id number] MUCUS, URINE RARE {/hpf} (Normal) BACTERIA 0 [...] CLARITY Sl. Cloudy (Normal) COLOR Yellow (Normal) 61-Uhd-682825:00 Basic Metabolic Profile (BMP) Comments: [facility] [address] [place], [place], [id number] GAP 8 (Normal) Range: 5-15 CO2 26.0 [...] 7-18 GLU 84 mg/dL (Normal) Range: 70-110 60-Awn-418543:00 CBC W/Diff, Automated Comments: [facility] [address] [place], [place], [id number] Absolute Lymph 1.11 {X10_3/ul} (Normal) Range: 0.83-4.51 [...] 4.2-5.4 WBC 5.5 K/mm3 (Normal) Range: 4.4-11.0 30-Bjw-152619:00 Lactic Acid Comments: [facility] [address] [place], [address] LACTIC ACID 1.6 mmol/L (Normal) Range: 0.4-2.0 46-Frf-787398:00 Lipase Comments: [address] [place], [address] LIPASE 177 U/L (Normal) Range: 73-393 48-Vnz-755261:00 Liver Profile Comments: [address] [place], [address] D BILI 0.08 mg/dL (Normal) Range: [...] (Normal) Range: 6.4-8.2 :30 CDIFF (Molecular) Comments: [address] [place], [address] CDIFF See Note (Normal) Comments: Cdiff-MolecularC. Diff DNA Negative- No toxigenic C. Diff DNA Detected :30 ENTERIC PATHOGEN PANEL STOOL Comments: [address] [place], [address] EP PANEL See Note (Normal) Comments: [...] DetectedRotavirus Not Detected 19-Feb-20167:30 Stool Lactoferrin/WBC Comments: [facility] [address] [place], [address] WBCST See Note (Normal) Comments: Stool Lacto/WBCFecal WBC Lactoferrin Negative: No Fecal WBC Lactoferrin present :30 Stool Occult Blood iFOB Comments: [address] [place], [address] STOB See Note (Normal) Comments: STOB iFOBOccult Blood Negative 40-Gtd-976406:35 Urinalysis, Complete Comments: How was Urine Obtained? CATHETER SPECIMENW[address] [place], [address] MUCUS, URINE 0 SEEN {/hpf} [...] (Normal) CLARITY Cloudy (Normal) COLOR Yellow (Normal) 09-Yht-196334:00 CBC W/Diff, Automated Comments: [address] [place], [address] SMEAR COMMENT SCANNED (Normal) Comments: [...] 4.2-5.4 WBC 6.8 K/mm3 (Normal) Range: 4.4-11.0 22-Mlm-310475:00 Comprehensive Metabolic Profil Comments: [facility] [address] [place], [address] GAP 9 (Normal) Range: 5-15 CO2 29.0 [...] 7-18 GLU 84 mg/dL (Normal) Range: 70-110 71-Mks-168818:00 Lactic Acid Comments: [facility] [address] [place], [address] LACTIC ACID 2.6 mmol/L (Abnormal) Range: 0.4-2.0 75-Uch-279982:00 Partial Thromboplast Time Comments: [facility] [address] [place], [address] PTT 26.7 s (Normal) Range: 24.1-36.2 78-Orm-449903:00 Prothrombin Time w/INR Comments: [facility] [address] [place], [place], [id number] INR 1.0 (Normal) PROTIME 13.1 s (Normal) Range: 11.7-14.9 20-Jan-20161:25 PREALBUMIN (40182) Comments: PERFORMED BY: [facility]6370 [facility] [id number] Prealbumin 27 mg/dL (Normal) Range: 9-31 Comments: [...] - 36 >70 years 9 - 32 03-Etg-789796:16 Clostridium difficile Toxin Comments: PERFORMED BY: [facility]State Healthcare SystemZkwkzd4968 [facility] [id number] A+B, EIA (74341) C difficile Toxins A+B, EIA Negative (Normal) 01-Iqm-232817:00 Culture, Urine Comments: [facility] [address] [place], [address] CUUR See Note (Normal) Comments: Urine CultureCulture exhibits no growth. 06-Xpp-054592:00 Urinalysis, Complete Comments: How was Urine Obtained? CLEAN [facility] F[address]warcrha[address] [place], [address] MUCUS, URINE 0 SEEN {/hpf} [...] CLARITY Sl. Cloudy (Normal) COLOR Yellow (Normal) 78-Vbt-720547:30 Culture, Urine Comments: [facility] [address] [place], [address] CUUR See Note (Normal) Comments: Urine CultureORGANISM 1: Enterococcus faecalisColony Count >100,000 Enterococcus faecalis: REACTION Ampicillin $ <=2 S Benzylpenicillin NF 2 S Ciprofloxacin $ <=0.5 S Gentamicin SYN-S S Levofloxacin $ 1 S Linezolid $$$$ 2 S Nitrofurantoin $ <=16 S Streptomycin $ SYN- S S Tetracycline NF >=16 R Vancomycin $ 1 S(NF) indicates non-formulary drug at [facility]. Approval by Infectious Disease Specialist required before non-formulary drugs may be ordered and/or dispensed. * CLSI guidelines does not recommend testing of cephalosporins. This interpretation is deduced from Beta-lactam/penicillin results. 19-Lvt-975851:30 Urinalysis, Complete Comments: How was Urine Obtained? Urine, [facility] Myyqsoevke4313 [facility] [place], [address] MUCUS, URINE 0 SEEN {/hpf} [...] CLARITY Sl. Cloudy (Normal) COLOR Yellow (Normal) 79-Rig-162493:00 ENTERIC PATHOGEN PANEL STOOL Comments: [facility] Emiulitjro8858 [facility]. [place], [place], [id number] EP PANEL See Note (Normal) Comments: RESULTS CALLED TO DR. HOUSTON 09/10/15 @9863 BY [facility].EP PANEL STOOLNot detected for Campylobacter [...] DetectedVIBRIO Not DetectedNorovirus Not DetectedRotavirus Not Detected 25-Gxr-623733:00 Stool Lactoferrin/WBC Comments: [facility] [address]pxmamx[address]. [place], [place], [address] WBCST See Note (Normal) Comments: RESULTS CALLED TO DR. HOUSTON 09/10/15 @1952 BY THADDEUS.Stool Lacto/WBCFecal WBC Lactoferrin Negative: No Fecal WBC Lactoferrin present 74-Zlm-238706:00 Stool Occult Blood iFOB Comments: [facility] [address] [place], [place], [address] STOB See Note (Normal) Comments: RESULTS CALLED TO DR. HOUSTON 09/10/15 @1952 BY THADDEUS.STOB iFOBOccult Blood Negative :29 CBC with auto diff Comments: PERFORMED BY: [facility] Xghgil6852 [facility] [id number] BY: [facility] [address] [id number] (318[address]) Immature Grans (Abs) 0.0 {x10E3/uL} (Normal) Range: [...] METABOLIC PANEL, Comments: PERFORMED BY: CB [facility] Csgjix2631 [facility] [id number] BY: BN [facility] [address] [id number] COMPREHENSIVE (70069) ALT (SGPT) 17 [iU]/L (Normal) Range: 0-32 [...] 73 mg/dL (Normal) Range: 65-99 :29 CALCIFIDIOL (62313) VIT D Comments: PERFORMED BY: Aiotra [facility] [id number] BY: [employer]or[employer] [id number] 25 Vitamin D, 25-Hydroxy 39.5 ng/mL (Normal) Range: 30.0-100.0 Comments: Vitamin D deficiency has been defined by the [place] of[place]icine and an Endocrine Society practice guideline as alevel of serum 25-OH vitamin D less than 20 ng/mL (1,2).The Endocrine Society went on to further define vitamin Dinsufficiency as a level between 21 and 29 ng/mL (2).1. IOM ([place] of [employer]). 2010. Dietary reference intakes for calcium and D. [place]: The National Academies Press.2. Gabbi MF, Singh [place], Pollo JOSEPH, et al. Evaluation, treatment, and prevention of vitamin D deficiency: an Endocrine Society clinical practice guideline. JCEM. 2010; 96(7):1911-30. 20-Jan-20161:29 TRILEPTAL-OXCARBAZEPINE 900362 Comments: PERFORMED BY: [employer]70 [facility] [id number] BY: Roomorama[address] [id number] (82290) Oxcarbazepine 38 ug/mL (Abnormal) Range: 10-35 Comments: Detection Limit = 1 56-Wku-941370:30 CBC W/Diff, Automated Comments: [facility] [address] [place], [place], [address] Absolute Lymph 0.90 {X10_3/ul} (Normal) Range: 0.83-4.51 [...] 4.2-5.4 WBC 5.2 K/mm3 (Normal) Range: 4.4-11.0 32-Zwy-489947:30 Comprehensive Metabolic Profil Comments: [facility] [address]narwb[address] [place], [place], [address] GAP 8 (Normal) Range: 5-15 CO2 26.0 [...] 200 mg/dLsuggests DIABETES MELLITUS per A.D.A. criteria. 56-Nbo-963012:30 Lipid Profile Comments: [facility] [address] [place], [place], [id number] VLDL 38 mg/dL (Normal) Range: 5-40 LDL [...] 200-240 mg/dL Borderline >240 mg/dL High Risk 55-Rua-347147:30 Prealbumin Comments: [facility] [address] [place], [address] PREALBUMIN 26.0 mg/dL (Normal) Range: 20.0-40.0 08-Cav-052546:30 Thyroid Stim Hormone (TSH) Comments: [facility] [address]fkmcgrnkj7900 [place], [address] TSH 1.02 {uIU/mL} (Normal) Range: 0.358-3.74 33-Vde-957586:30 Trileptal-Oxcarbazepine Comments: [facility] (refer to report for specific site)refer to report for address and phone number TRILEPT [id number] 38 ug/mL (Abnormal) Range: 10-35 Comments: Detection Limit = 1Performed at: [facility] LabCo[address] [id number] Director: Reji Gibson MD, Phone: [phone] 62-Czu-379494:30 Vitamin D,25 Hydroxy Comments: [facility] Vtijiivz[address] [place] [address] [place], [id number] Vitamin D 25-OH 38.4 ng/mL (Normal) Comments: Vitamin D 25(OH) Status Range Deficiency <20 ng/mL (50nmol/L) Insuffciency 20 - 30 ng/mL (50 - 75 nmol/L) Sufficiency 30 - 100 ng/mL (75 - 250 nmol/L) Toxicity >100 ng/mL (>250 nmol/L) 3-Rpb-313192:45 CBC-Complete Blood Cnt No Diff Comments: Test performed at:[facility] Awr[address] [place] [address] [place] 224761 MPV 10.5 fL (Normal) Range: 6.2-12.0 PLT [...] 4.2-5.4 WBC 6.3 K/mm3 (Normal) Range: 4.4-11.0 0-Zlu-208656:45 Comprehensive Metabolic Profil Comments: Is Patient Taking Vitamins or Folic Acid Supplements? NTest performed at:[facility] [address]wr[address]upfgz[address] [place], [place] [address] GAP 7 (Normal) Range: 5-15 CO2 29.0 [...] <126 mg/dLsuggests IMPAIRED HOMEOSTASIS per A.D.A. criteria. 1-Nyc-367505:45 CRP Comments: Is Patient Taking Vitamins or Folic Acid Supplements? NTest performed at:[address] [place] [address] C-REACTIVE PROT < 2.90 mg/L (Normal) Range: 0.0-3.0 Comments: C-Reactive Protein (CRP) provides useful information for thediagnosis, therapy and monitoring of inflammatory processesand associated diseases. For the evaluation of Relative Riskfor Cardiovascular Dise ase, a High Sensitivity CRP (HSCRP)should be ordered. :45 Erythrocyte Sed Rate Comments: Test performed at:[address] [place] [address] SED RATE 13 mm/h (Normal) Range: 0-20 :45 Folates, (Folic Acid) Comments: Is Patient Taking Vitamins or Folic Acid Supplements? NTest performed at:[address] [place] [address] FOLATES 15.70 ng/mL (Normal) Range: 3.1-17.5 :45 Free T3 Comments: Is Patient Taking Vitamins or Folic Acid Supplements? NTest performed at:[address] [place] [address] FREE T3 2.4 pg/mL (Normal) Range: 2.18-3.98 :45 Miscellaneous Lab Procedure Comments: Test(s) Ordered: OXCARBAZEPINE, #[id number], RED TOP SERUM/RFTest performed at:[address] [place] [address] MISC Comments: Oxcarbazepine (Trileptal), S Oxcarbazepine 35 ug/mL Ref: 35 Detection Limit=1 TESTING PERFOR MED AT [facility] (Normal) rp. ORIGINAL REPORT ON FILE IN LAB CONTAINS ADDITIONAL TEST SITE INFORMATION. TEST :45 Prealbumin Comments: Is Patient Taking Vitamins or Folic Acid Supplements? NTest performed at:[facility] [address] [place] [address] PREALBUMIN 30.9 mg/dL (Normal) Range: 20.0-40.0 :45 ,Serum,hCG Quali. Comments: Test performed at:[facility] [address] [place] [address] HCGSQUAL NEGATIVE {Negative} (Normal) Range: 0-9 Nonpreg HCG Qual triggr < 1 m[iU]/mL (Normal) :45 Prolactin Comments: Is Patient Taking Vitamins or Folic Acid Supplements? NTest performed at:[facility] [address] [place], [place] [address] PROLACTIN 9.5 ng/mL (Normal) Comments: NORMAL REFERENCE RANGES FEMALE NON- 2.2 - 30.3 ng/mL 8.1 - 347.6 ng/mL POST-MENOPAUSAL 0.7 - 3 1.5 ng/mL MALE 2.5 - 17.4 ng/mLNEW TEST METHOD AND REFERENCE RANGES FEBRUARY 01, 2012:45 T4 Free Direct Comments: Is Patient Taking Vitamins or Folic Acid Supplements? NTest performed at:[facility] [address] [place] [address] T4 FREE DIRECT 0.74 ng/dL (Abnormal) Range: 0.76-1.46 :45 Thyroid Stim Hormone (TSH) Comments: Is Patient Taking Vitamins or Folic Acid Supplements? NTest performed at:[facility] [address] [place] [address] TSH 1.39 {uIU/mL} (Normal) Range: 0.358-3.74 :45 Urinalysis, Routine (Dipstick) Comments: How was Urine Obtained? Urine, RandomTest performed at:[facility] Qpccdhrpbr[address] [place] [address] LEUK ESTERASE 500 /ul (Abnormal) OCCULT BLOOD-UR Negative /ul (Normal) NITRITE UR Negative (Normal) UROBILI Normal mg/dL (Normal) PROT DIPSTX Negative mg/dL (Normal) pH UR 8.0 (Normal) Range: 5.0 - 8.0 SP.GR. DIPSTX 1.010 (Normal) Range: 1.002-1.030 KETONE UR Negative mg/dL (Normal) BILIRUBIN URINE Negative mg/dL (Normal) GLUCOSE, UR Normal mg/dL (Normal) CLARITY Sl. Cloudy (Normal) COLOR Yellow (Normal) 1-Mom-340932:45 Vitamin B12 1089 pg/mL (Abnormal) Comments: Test performed at:[facility] [address]rfr[address] [place] [address] Range: 211-911 0-Ufb-619283:45 Vitamin D,25 Hydroxy Comments: Test performed at:[facility] [address] [place] [address] Vitamin D 25-OH 23.9 ng/mL (Normal) Comments: Vitamin D 25(OH) Status Range Deficiency <20 ng/mL (50nmol/L) Insuffciency 20 - 30 ng/mL (50 - 75 nmol/L) Sufficiency 30 - 100 ng/mL (75 - 250 nmol/L) Toxicity >100 ng/mL (>250 nmol/L) 60-Xty-621810:43 ALBUMIN SERUM (39738) Comments: PATIENT NOT FASTINGPERFORMED BY: Om[facility]StratUNC Health [facility] [id number] Albumin, Serum 4.7 g/dL (Normal) Range: 3.5-5.5 07-Ifs-294293:43 PREALBUMIN (39020) Comments: PATIENT NOT FASTINGPERFORMED BY: OmniStratUNC Health [facility] [id number] Prealbumin 29 mg/dL (Normal) Range: 20-40 88-Vgl-833607:21 ANJELICA CULTURE-OTHER (98124) Comments: PATIENT NOT FASTINGPERFORMED BY: [place] Therapeuticsox RoadDublin [place] [id number] Information: SRC:THRT [id number] Result 1 RRF (Normal) Comments: Routine respiratory jasper Upper Respiratory Culture Final report (Normal) 15-Eyc-121591:43 PROLACTIN (59455) Comments: PATIENT NOT FASTINGPERFORMED BY: [facility]6370 [facility] [id number] Prolactin 13.8 ng/mL (Normal) Range: 4.8-23.3 48-Epm-821322:43 T3, FREE (TRIDOTHYRONINE) (30723) Comments: PATIENT NOT FASTINGPERFORMED BY: [place] 8381370 [facility] [id number] Triiodothyronine,Free,Serum 3.3 pg/mL (Normal) Range: 2.0-4.4 95-Tal-678446:43 T4, FREE (THYROXINE) (22390) Comments: PATIENT NOT FASTINGPERFORMED BY: [facility] [id number] T4,Free(Direct) 1.14 ng/dL (Normal) Range: 0.82-1.77 14-Rgw-276228:43 TSH (05769) Comments: PATIENT NOT FASTINGPERFORMED BY: [facility]6370 [facility] [id number] Information: 522375,R70110 TSH 1.580 {uIU/mL} (Normal) Range: 0.450-4.500 68-Igp-142945:00 CBCD ANC 1.8 {X10_3/uL} (Abnormal) Range: 2.0-7.7 [...] CDIFF See Note (Normal) Comments: FAXED TO [employer] C. Diff DNA Positive-Toxigenic C. Difficile DNA [...] Negative- No toxigenic C. Diff DNA Detected 5-Chq-864958:55 Oxcarbazepine (Trileptal),S Comments: PERFORMED BY: [employer] [facility] [id number] BY: [address] [id number] Oxcarbazepine 32 ug/mL (Normal) Range: 10-35 Comments: Detection Limit = 1 :55 CALCIFIDIOL (32931) VIT D Comments: PERFORMED BY: SpiceCS[employer] [facility] [id number] BY: mobintent[address] [id number] 25 Vitamin D, 25-Hydroxy 27.4 ng/mL (Abnormal) Range: 30.0-100.0 Comments: Vitamin D deficiency has been defined by the [place] of[place]icine and an Endocrine Society practice guideline as alevel of serum 25-OH vitamin D less than 20 ng/mL (1,2).The Endocrine Society went on to further define vitamin Dinsufficiency as a level between 21 and 29 ng/mL (2).1. IOM ([place] of [employer]). 2010. Dietary reference intakes for calcium and D. [place]: The National Academies Press.2. Gabbi MF, Singh MCKEON, Pollo JOSPEH, et al. Evaluation, treatment, and prevention of vitamin D deficiency: an Endocrine Society clinical practice guideline. JCEM. 2010; 96(7):1911-30. :55 Folate (56935) Comments: PERFORMED BY: [employer] [facility] [id number] BY: [address] [id number] Folate (Folic Acid), Serum 16.3 ng/mL (Normal) Comments: A serum folate concentration of less than 3.1 ng/mL isconsidered to represent clinical deficiency. :55 VITAMIN B-12 (CYANOCOBALAMIN) Comments: PERFORMED BY: [employer] Ot[employer]x6703 [facility] [id number] BY: [address] [id number] (80983) Vitamin B12 889 pg/mL (Normal) Range: 211-946 :55 TSH (21351) Comments: PERFORMED BY: [employer] [facility] [id number] BY: [address] [id number] TSH 1.670 {uIU/mL} (Normal) Range: 0.450-4.500 :55 SED RATE ERYTHROCYTE Comments: PERFORMED BY: [employer] [facility] [id number] BY: [address] [id number] (37706) Sedimentation Rate-Westergren 6 mm/h (Normal) Range: 0-32 :55 METABOLIC PANEL, Comments: PERFORMED BY: [employer]6370 [facility] [id number] BY: mobintent[address] [id number] [facility] (34968) ALT (SGPT) 11 [iU]/L (Normal) Range: 0-32 [...] cells when received.This may adversely affect serumChemistries. 3-Ixg-681069:55 C-REACTIVE PROTEIN (01905) Comments: PERFORMED BY: [employer] [facility] [id number] BY: [employer] [address] [id number] C-Reactive Protein, Quant 0.9 mg/L (Normal) Range: 0.0-4.9 :55 CBC (AUTO) (57446) Comments: PERFORMED BY: Aiotra [facility] [id number] BY: Roomorama[address] [id number] Platelets 213 {x10E3/uL} (Normal) Range: 140-415 Comments: [...] of these values in the reference population. 1-Blr-666164:29 ANJELICA CULTURE-OTHER (23555) Comments: PATIENT NOT FASTINGPERFORMED BY: [facility]6370 [facility] [id number] Information: SRC:THRT [id number] Result 1 RRF (Normal) Comments: Routine respiratory jasper Upper Respiratory Culture Final report (Normal) 8-Zjt-577788:03 Rapid Strep Test, Office (17738) Rapid Strep Test, Negative (Normal) Office 27-Hiv-654820:55 CDIF See Note (Normal) Comments: A positive [...] in these cases. C. DIFF ANTIGENS POSITIVE 43-Lmb-151417:30 CDIF See Note (Normal) Comments: RESULTS CALLED [...] Comments: C. DIFF ANTIGENS NEGATIVE :2 TRILEPT [id number] 20 ug/mL (Normal) Range: 10-35 4 Comments: Detection Limit = 1Performed at: [facility] [address] [id number] Director: Reji Gibson MD, Phone: [phone] 96-Fpc-155329:1 C DIF TOXIN/AG See Note (Normal) Comments: RESULTS CALLED TO 06/23/112004 VONDA ELAM.REPORT READ BACK BY SAME . * This is an amended result. * A 5 prior result that was reported as final has been changed.06/23/112004 by IESHAPreviously reported as: C. DIFF ANTIGENS POSITIVE 28-Fpg-458883:46 COMP METABOLIC GAP 11 (Normal) Range: 5-15 [...] 7-18 GLU 71 mg/dL (Normal) Range: 70-110 48-Hgp-668098:41 CBCD ABSOLUTE NEUT 5.0 3/uL (Normal) Range: [...] 4.2-5.4 WBC 7.2 K/mm3 (Normal) Range: 4.4-11.0 1-Bec-887612:49 CULTURE, THROAT See Note (Normal) Comments: Normal [...] STOOL/SHIG Comments: RESULTS CALLED TO OFFICE TO THAISRPFVGIQU75/04/10 115KRISTIAN DAWSON.REPORT READ BACK BY SAME . [...] Cyclospora, or Microspo ridia. TESTING PERFORMED AT [facility]. ORIGINAL REPORT ON FILE IN LAB CONTAINS [...] Cyclospora, or Microspo ridia. TESTING PERFORMED AT [facility]. ORIGINAL REPORT ON FILE IN LAB CONTAINS ADDITIONAL TEST SITE INFORMATION. OVA/ PARASITES EXAM NO OVA, CYSTS, OR PARASITES FOUND. :20 WBC,STOOL See Note (Normal) Comments: FECAL WBCs NONE SEEN 46-Hmr-363953:14 C DIF TOXIN See Note (Normal) :44 O AND P See Note (Normal) Comments: OVA AND PARASITES EXAM, ROUTINE These results were obtained using wet preparation(s) and trichrome stained smear. This test does not include testing for Crytosporidium parvum, Cyclospora, or Microspo ridia. TESTING PERFORMED AT [facility]. ORIGINAL REPORT ON FILE IN LAB CONTAINS [...] Cyclospora, or Microspo ridia. TESTING PERFORMED AT [facility]. 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 Indication: Convulsions Neuromuscular scoliosis : Follow [...] Cystitis, acute Planned Observations URINE ANJELICA CULTURE-IDENTIFICATN ([id number])Indication: Abnormal urine On: 0-Dpt-001538:25 Request MRSA Culture ([id number])Indication: Thick sputum On: 3-Och-990980:32 Request Anaerobic & Aerobic Culture (20013)Indication: Thick sputum On: 96-Yoj-911345:46 Request Comments: collected from trachea stoma Anaerobic & Aerobic Culture ([id number])Indication: Cellulitis of groin, right On: 4-Orv-713552:44 Request TRILEPTAL-OXCARBAZEPINE [id number] ([id number])Indication: Diarrhea On: 7-Klv-548864:24 Request VITAMIN B12 AND FOLATES (37726)Indication: Diarrhea On: 1-Nzj-197998:24 Request CALCIFEDIOL (38521)Indication: Diarrhea On: 7-Gzy-358333:24 Request CALCIFEDIOL (53321)Indication: Diarrhea On: 1-Hjg-475932:23 Request TSH (THYROID STIMULATING HORMONE) (16254)Indication: Diarrhea On: :23 Request METABOLIC PANEL, COMPREHENSIVE (74891)Indication: Diarrhea On: 8-Yii-613681:23 Request CBC, PLATELETS & AUT DIFF (36124)Indication: Diarrhea On: 1-Kqm-325324:23 Request OVA & PARASITE DIR SMEAR (45809)Indication: Diarrhea On: 42-Xsi-583865:46 Request ANJELICA CULTURE-STOOL (22422)Indication: Diarrhea On: :46 Request OCCULT BLOOD FECES SCREEN (06843)Indication: Diarrhea On: :46 Request LEUKOCYTE COUNT, FECAL (55217)Indication: Diarrhea On: :46 Request C-DIFFICILE, STOOL (02836)Indication: Diarrhea On: :46 Request OVA & PARASITE DIR SMEAR (38004)Indication: C. difficile diarrhea On: :50 Request OCCULT BLOOD FECES SCREEN (80689)Indication: C. difficile diarrhea On: :50 Request ANJELICA CULTURE-STOOL (08836)Indication: C. difficile diarrhea On: :50 Request LEUKOCYTE COUNT, FECAL (98520)Indication: C. difficile diarrhea On: :50 Request C-DIFFICILE, STOOL (80526)Indication: C. difficile diarrhea On: :49 Request Clostridium difficile Culture (84609)Indication: Diarrhea On: 1-Tra-167491:52 Request URINALYSIS, W/ MICRO (42208)Indication: Dysuria On: :56 Request URINE ANJELICA CULTURE-SISSY COL COUNT (55944)Indication: Dysuria On: :54 Request OCCULT BLOOD FECES SCREEN (30100)Indication: Diarrhea On: :01 Request LEUKOCYTE COUNT, FECAL (92454)Indication: Diarrhea On: :05 Request ANJELICA CULTURE-STOOL (12886)Indication: Diarrhea On: :05 Request Clostridium difficile Toxin A+B, EIA (18357)Indication: Diarrhea On: :05 Request TRILEPTAL-OXCARBAZEPINE [id number] (44462)Indication: Convulsions On: :55 Request PREALBUMIN (46513)Indication: Nutritional assessment On: :45 Request CALCIFIDIOL (50229) VIT D 25Indication: Vitamin D deficiency On: :44 Request TSH ([id number])Indication: Hypertension On: :44 Request METABOLIC PANEL, COMPREHENSIVE (31957)Indication: Hypertension On: :44 Request LIPID PANEL (00670)Indication: Hypertension On: :44 Request CBC with auto diff (15083)Indication: Hypertension On: :44 Request Metabolic Panel, Basic (97789)Indication: Abnormal urine On: :03 Request VITAMIN B12 AND FOLATES (60918)Indication: Abnormal urine On: : Request CALCIFEDIOL (17973)Indication: Abnormal urine On: 1-Qib-622982:03 Request Comments: vit d3 URINE ANJELICA CULTURE-SISSY COL COUNT (91970)Indication: Abnormal urine On: :52 Request TRILEPTAL-OXCARBAZEPINE 955571 ([id number])Indication: Cerebral palsy On: :46 Request HCG Qualitative, Serum (77714)Indication: Amenorrhea On: :45 Request PROLACTIN (90637)Indication: Amenorrhea On: :44 Request PREALBUMIN (84632)Indication: Cerebral palsy On: 44-Njy-440413:43 Request URINALYSIS (89178)Indication: Fatigue On: :43 Request T3, FREE (TRIDOTHYRONINE) (09232)Indication: Fatigue On: :43 Request T4, FREE (THYROXINE) (97312)Indication: Fatigue On: :43 Request Folate (67395)Indication: Fatigue On: :42 Request CALCIFIDIOL (41628) VIT D 25Indication: Fatigue On: 12-Zmo-916164:42 Request VITAMIN B-12 (CYANOCOBALAMIN) (19538)Indication: Fatigue On: 63-Slc-164049:42 Request TSH (69643)Indication: Fatigue On: :42 Request SED RATE ERYTHROCYTE (77650)Indication: Fatigue On: 18-Wvn-332088:42 Request METABOLIC PANEL, COMPREHENSIVE (21421)Indication: Fatigue On: 56-Soh-632565:42 Request C-REACTIVE PROTEIN (01984)Indication: Fatigue On: 97-Muw-261294:42 Request CBC (AUTO) (54200)Indication: Fatigue On: 03-Skv-218557:42 Request CULTURE,BODY FLUID (62913)Indication: Irregular Menstrual Cycle (Renamed from Irregular bleeding) On: 11-Gij-572857:07 Request Comments: urine Rapid Strep Test, Office (85534)Indication: Pharyngitis, acute On: 03-Yqh-474648:51 Request Urinalysis, Office (47229)Indication: Fatigue On: 30-Agp-455665:49 Request HgA1C , Office (24439)Indication: Hyperglycemia On: 72-Pae-365065:41 Request CALCIFIDIOL (89824) VIT D 25Indication: Vitamin D deficiency On: :32 Request TRILEPTAL-OXCARBAZEPINE [id number] (16705)Indication: Convulsions On: :31 Request Metabolic Panel, Comprehensive (11866)Indication: Acute renal failure On: :31 Request CBC with manual diff (65566)Indication: Hypertension On: :31 Request CBC with manual diff (31416)Indication: Thrombocytopenia, unspecified On: :35 Request Comments: in citrate tube FIBRINOGEN (46786)Indication: Thrombocytopenia, unspecified On: :35 Request PTT (Activated Partial Thromboplastin Time) (77207)Indication: Thrombocytopenia, unspecified On: :35 Request PT (Prothrobim Time) (63117)Indication: Thrombocytopenia, unspecified On: :35 Request HEPATITIS C ANTIBODY (78945)Indication: Thrombocytopenia, unspecified On: :35 Request HEPATITIS B CORE ANTBD-IGG/IGM (44022)Indication: Thrombocytopenia, unspecified On: :35 Request HEPATITIS B SURFACE ANTIGEN (17630)Indication: Thrombocytopenia, unspecified On: :35 Request HEPATITIS B SURFACE ANTIBODY (11871)Indication: Thrombocytopenia, unspecified On: :35 Request Methylmalonic acid, serum 40725Hpychsvggi: Thrombocytopenia, unspecified On: :35 Request Vitamin B-12 (cyanocobalamin) (60647)Indication: Thrombocytopenia, unspecified On: :35 Request Sed Rate Erythrocyte (75210)Indication: Thrombocytopenia, unspecified On: :35 Request Metabolic Panel, Comprehensive (90650)Indication: Thrombocytopenia, unspecified On: :35 Request JENNY (ANTINUCLEAR ANTIBODY) (19728)Indication: Thrombocytopenia, unspecified On: :35 Request CBC with manual diff (18651)Indication: Convulsions On: 10-Pkf-432473:31 Request Clostridium difficile Toxin A+B, EIA (15953)Indication: Diarrhea On: :31 Request OVA & PARASITE DIR SMEAR (34952)Indication: Diarrhea On: :44 Request OCCULT BLOOD FECES SCREEN (96830)Indication: Diarrhea On: :44 Request LEUKOCYTE COUNT, FECAL (22191)Indication: Diarrhea On: :44 Request ANJELICA CULTURE-STOOL (45542)Indication: Diarrhea On: :44 Request Clostridium difficile Toxin A+B, EIA (81921)Indication: Diarrhea On: 83-Jei-694602:22 Request C DIFF AMPLIFIED PROBE (39847)Indication: Diarrhea On: 37-Lzo-40821:51 Request Metabolic Panel, Comprehensive (65547)Indication: Acute renal failure On: :08 Request Comments: recheck prior to August. CALCIFIDIOL (28476) VIT D 25Indication: Vitamin D deficiency On: :08 Request Comments: recheck prior to August. TRILEPTAL-OXCARBAZEPINE 754765 (57519)Indication: Convulsions On: 4-Jjo-457419:08 Request Culture, Stool (18378)Indication: Diarrhea On: :01 Request C DIFF AMPLIFIED PROBE (34887)Indication: Diarrhea On: :01 Request C DIFF AMPLIFIED PROBE (55645)Indication: Diarrhea On: 74-Fzf-953299:32 Request C DIFF AMPLIFIED PROBE (62443)Indication: Diarrhea On: 80-Doj-941806:51 Request URINE ANJELICA CULTURE-IDENTIFICATN (78893)Indication: Backache On: 1-Mgd-515164:58 Request URINALYSIS (01661)Indication: Backache On: 5-Shm-823969:58 Request Metabolic Panel, Comprehensive (84972)Indication: Profound mental retardation (Renamed from IQ under 20) On: 9-Ikf-666406:25 Request Comments: Dr Pino neurologist at [facility] CBC (Auto) ([id number])Indication: Profound mental retardation (Renamed from IQ under 20) On: 1-Ejd-110761:25 Request TRILEPTAL-OXCARBAZEPINE 156451 (27193)Indication: Cerebral palsy On: 3-Ilv-752650:24 Request COLUMN CHROMATOGRAPHY, SISSY, SINGLE (87407)Indication: Convulsions On: 66-Mcw-200268:54 Request Comments: trileptal 203256 Clostridium difficile Toxin A+B, EIA (61235)Indication: Diarrhea On: 69-Ypp-041081:26 Request CBC (Auto) (83606)Indication: Convulsions On: 71-Euh-105604:25 Request Metabolic Panel, Comprehensive (62861)Indication: Convulsions On: 39-Ftc-092759:24 Request ANJELICA CULTURE-OTHER (52265)Indication: Pharyngitis, acute On: 7-Qze-135156:44 Request C.Difficile, Stool (96616)Indication: Diarrhea On: 54-Szo-419811:48 Request ANJELICA CULTURE-STOOL (38697)Indication: Diarrhea On: :55 Request C.Difficile, Stool (74411)Indication: Diarrhea On: :54 Request LEUKOCYTE COUNT, FECAL (11275)Indication: Diarrhea On: :27 Request OVA & PARASITE DIR SMEAR (31329)Indication: Diarrhea On: :27 Request C.Difficile, Stool (51832)Indication: Diarrhea On: :27 Request ANJELICA CULTURE-STOOL (89100)Indication: Diarrhea On: :27 Request TSH (94694)Indication: Unspecified bacterial pneumonia On: 8-Ljg-050844:48 Request CBC, Platelets & Auto Diff (81610)Indication: Unspecified bacterial pneumonia On: :48 Request Magnesium (22648)Indication: Unspecified bacterial pneumonia On: 2-Qyf-092463:48 Request Phosphorus (42319)Indication: Unspecified bacterial pneumonia On: 1-Nfd-716628:48 Request Metabolic Panel, Basic (18628)Indication: Unspecified bacterial pneumonia On: 5-Haf-438775:48 Request Planned Encounters Medical; 4 Month FU - On: 10-Oct-2018 13:15 [facility] Lara Sandra Lara MCCULLOUGHSandra Planned Procedures Flu Vaccine (Quadrivalent) On: 06-Jun-2018 Intent 07381Kg: Lara MCCULLOUGHSandra Comments: Lot #[id number]-L dltd, IMDose prefilled syringegiven by:MARICARMEN Santana reviewed and ABN signed Sandra Bermudez DO Flu Vaccine (Quadrivalent) On: 02-Aug-2017 Intent 44044Rz: Lara MCCULLOUGHSandra Comments: Lot:[id number]:12/29Amt:0.5mlRoute:IMSite: Rt DltdGiven By: ALFREDITO James signed Sandra Bermudez DO Flu Vaccine (Quadrivalent) On: 14-May-2016 Intent 00067Iy: Roe Baxter MD Comments: Lot #[id number]-L dltd, IMDose prefilled syringegiven by:ALFREDITO Goldberg and ABN signed ADMINISTRATION OF INFLUENZA On: 02-Aug-2015 Intent VIRUS VACCINE (G0008)By: Linda Houston MD Flu Vaccine (Quadrivalent) On: 02-Aug-2015 Intent 06942Mo: Linda Houston MD Comments: Lot #:[id number] date:Amount given:0.5mlRoute: IMSite given:L DltdGiven by: Jessica BASSETT and ABN signed Quad Flu ELECTROCARDIOGRAM, COMPLETE On: 21-Mar-2015 Intent (ECG) (96514)By: Linda Houston MD CT - Brain/Head (IV Contrast On: 29-Nov-2014 Intent Needed)By: Linda Houston MD ADMINISTRATION OF INFLUENZA On: 06-Aug-2014 Intent VIRUS VACCINE (G0008)By: TIMBO Villegas Flu Vaccine (Quadrivalent) On: 06-Aug-2014 Intent 28137Ys: TIMBO Villegas Comments: Lot #:[id number] date:mount given:0.5mlRoute: IM Site given:Given by: to be given per patient home health nurse CATHETERIZE FOR URINE SPEC On: 09-Mar-2014 Intent (P9612)By: Linda Houston MD Comments: pls use pediatric cath- and fax results to [phone] SPECIMEN HNDLNG/TRNSPRT, OFFC > On: 09-Mar-2014 Intent LAB (23057)By: Linda Houston MD IMMUNIZ ADMNIN, 1 VAC, On: 28-Jul-2013 Intent SNGL/COMBO (77612)By: Archie BOLDEN, Comments: Lot #[id number] to nurse for admin Jessica Stack FLU VAC, SPLIT, >3 YEARS, On: 28-Jul-2013 Intent INTRAMUSC (99069)By: Jessica Almanza LPN SPECIMEN HNDLNG/TRNSPRT, OFFC > On: 18-May-2013 Intent LAB (13727)By: Linda Houston MD Eprescribed prescriptions On: 18-May-2013 Intent (G8553)By: Jessica Almanza LPN FLU VAC, SPLIT, >3 YEARS, On: 23-Jun-2011 Intent INTRAMUSC (75474)By: Archie BOLDEN, Comments: Lot #[id number]-L arm, IMDose prefilledgiven by:Jessica Stack IMMUNIZ ADMNIN, 1 VAC, On: 23-Jun-2011 Intent SNGL/COMBO (18655)By: Jessica Almanza LPN Instructions Name Dates Details [...] for the procedure will be Dr [facility]. The chief complaint is teeth [...]
--- OUTSIDE RECORDS SUMMARY | 2018-10-08 11:26 | XMS RPT_ITS | Continuity of Care Document ---
:1990 Author Organization [facility] Address [address] [facility] [facility] [address] [place] [address] Phone Care Team Providers Name Role Phone [...] Propionate 50 MCG/ACT Nasal Suspension 2 (two) Hernando(s) Hernando(s) each nostril qd for 90 days Quantity: [...] Houston MD Start : 20-Jan-2016 Active Nyamyc 301264 UNIT/GM External Powder uad Powder to affected area(s) bid and prn for 0 days Quantity: 15 {Bottle} Refills: 6 Ordered:19-Nov-2017 Karin Bermudez DO, DO, Kathleen Start : 19-Nov-2017 End : 17-Nov-2013 Active Nystatin 536641 UNIT/GM External Cream uad Cream to affected area(s) bid prn for 7 days Quantity: 1 {Bottle} Refills: 3 Ordered:03-Jun-2018 Karin Bermudez DO, DO, Kathleen Start : 03-Jun-2018 Active Nystatin 559594 UNIT/ML Mouth/Throat Suspension 5 ml ml 5 times day for 10 days Quantity: 250 {Milliliter} Refills: 9 Ordered:03-Apr-2016 Jessica Almanza LPN Start : 03-Apr-2016 Active Nystatin Powder 1 Powder Powder tid for 10 days Quantity: 1 {Bottle} Refills: 3 Ordered:28-Jun-2017 Karin Bermudez DO, DO, Kathleen Start : 28-Jun-2017 Active Pen [place] 31G X 5 MM Miscellaneous 1 (one) [...] for 0 days Refills: 0 Ordered:23-Jun-2011 Long DYNAMOMETER TUNER, Jessica L End : 23-Jun-2011 Inactive LevoFLOXacin [...] for 0 days Refills: 0 Ordered:23-Jun-2011 Long DYNAMOMETER TUNER, Jessica L End : 23-Jun-2011 Inactive MUCINEX FOR KIDS, 100MG/5ML (Oral Liquid) Liquid 15 cc tid 14 days for 0 days Refills: 0 Ordered:23-Jun-2011 Long DYNAMOMETER TUNER, Jessica L Start : 13-Jun-2009 End : [...] for 0 days Refills: 0 Ordered:14-Jan-2012 TIMBO Villgeas End : 14-Jan-2012 Discontinued Comments:This order discontinued per [employer]. FLONASE, 50MCG/ACT (Nasal Suspension) 2 (two) spray spray each nostril qd for 0 days Quantity: 1 {Hernando} Refills: 3 Ordered:09-Apr-2015 Linda Houston MD Start : 09-Apr-2015 End : 20-Jan-2016 Discontinued Comments:This order discontinued per [employer]. MUCOMYST, 20% (Inhalation Solution) 1 bid/prn for 0 days Refills: 0 Ordered:23-Jun-2011 Long DYNAMOMETER TUNER, Jessica L End : 23-Jun-2011 Discontinued Comments:This order discontinued per [employer]. VYTONE, 1-1% (External Cream) Cream bid for 0 days Quantity: 1 {Cream} Refills: 3 Ordered:13-Jun-2009 Long DYNAMOMETER TUNER, Jessica L Start : 13-Jun-2009 End : [...] Comments: See Note; NOTES: [facility] of [address] [place] [address] OFFICE VISIT Date of Service: 05/25/18 MR#: [id number] Acct: [id number] Name: MIGUEL MANDY Rickey Rep #: [id number] : 1990 Provider: Lawrence Weiner MD Age/Sex: 28/F Location: [facility] Status: Signed Assessment [...] [facility] Medical Records Department [address] [facility] [address] Emergency Department Summary 01/24/18 1645 MR#: [id number] Acct: [id number] Name: MANDY MONTERO Rep #: [id number] : 1990 27 From: Stephan Hughes MD [...] Discharged to home Impression: 1. Cellulitis left [facility] region 2. Dysuria of unknown etiology 3. History of MRDD 4. History of Propulsid 5. History of chronic respiratory failure on ventilator This note was generated with [employer] software. It m ay contain incorrect words, [...] Instructions: Mandy prescription was electronically transmitted to [place], your [facility] What to do if you have Problems For any increased pain, shortness of breath, bleeding, nausea or vomiting, chest pain, or any unexpected problems, contact your Primary Care Provider. Call [facility] ([phone]) or report to the closest Emergency Room. Call 911 if necessary. 01/24/18 8906 <Electronically signed by Stephan Hughes MD> Date Stephan Hughes MD Cosigner Signature (If Indicated): Date CC: Sandra Lara DO 10-Dec-2017 Pulmonary Visit Report Result: Comments: See Note; NOTES: [facility] [place] [address] [place] [address] OFFICE VISIT Date of Service: 12/09/17 MR#: [id number] Acct: [id number] Name: MANDY MONTERO Rep #: [id number] : 1990 Provider: Lawrence Weiner MD Age/Sex: 27/F Location: [facility] Status: Signed Assessment AND Plan 1. Chronic [...] Comments: See Note; NOTES: [facility] of [place] [address] [place] [address] OFFICE VISIT Date of Service: 09/02/17 MR#: [id number] Acct: [id number] Name: MANDY MONTERO Rep #: [id number] : 1990 Provider: Lawrence Weiner MD Age/Sex: 27/F Location: [facility].PM[facility] Status: Signed Assessment [...] mg (10 mL) PO QDAY PRN allergy gjpoceukO97 .2 Ok to give through PEG Follow Up 3 Months ([facility]) HPI 6 M FU: Chief Complaint: Increased secretions Details: Patient is a 27-year-old female who presents for evaluation secondary to incre ased secretions. Since last visit, patient's mother denies any ER visits, hospitalizations or prednisone burst. Patient does suffer from cerebral palsy and is unable to answer for herself. Patient pres ents on a cot with her mother and healthcare studio assistant. Family reports the patient has had [...] [facility] Medical Records Department [address] [place] [address] Emergency Department Summary MR#: [id number] Acct: [id number] Name: MANDY MONTERO Rep #: [id number] : 1990 26 From: Flip Jessica MD [...] . Flip Jessica MD T: NTS JOB: [id number] 03/10/17805 <Electronically signed by Flip Jessica MD> Date Flip Jessica MD Cosigner Signat ure (If Indicated): Date CC: Sandra Bermudez DO Date Dictated: 03/06/171722 Date Transcribed: 03/06/171722 Indigo Mixer: Signed 06-Mar-2017 Discharge Instruction Result: Comments: See Note; NOTES: [facility] Medical Records Department [address] [place] [address] Discharge Instruction 03/06/171719 MR#: [id number] Acct: [id number] Name: ROMELIA MONTERO Rep #: [id number] : 1990 26 From: Flip Jessica MD [...] your Primary Care Provider. Call [facility] ([phone]) or report to the closest Emergency Room. Call 911 if necessary. 03/06/171719 <Electronically signed by Flip Jessica MD> Date Flip Jessica MD Cosigner Signature (If Indicated): Date CC: Sandra Bermudez DO 06-Mar-2017 Chest 1 View Result: Comments: See Note; NOTES: [facility] Imaging Services [address] [place] [address] Verdana 4d Chest 1 View MR#: [id number] Acct: [id number] Name: MANDY MONTERO Rep #: [id number] : 1990 F 26 From: Merritt Bolton MD PCP: Sandra Bermudez DO Status: REG ER Study: Chest 1 View Date of Exam: 03/06/17 Exam# [id number] Ordering Dr: Flip Jessica MD STUDY: X-RAY [...] CC: Flip Jessica MD; Sandra Bermudez DO Indigo Mixer: Signed 06-Mar-2017 Thoracic Spine 3 Views Result: Comments: See Note; NOTES: [facility] Imaging Services [address] [place] [address] Verdana 4d Thoracic Spine 3 Views MR#: [id number] Acct: [id number] Name: MANDY MONTERO Rep # : [id number] : 1990 F 26 From: Merritt Bolton MD PCP: Sandra Bermudez DO Status: REG ER Study: Thoracic Spine 3 Views Date of Exam: 03/06/17 Exam# [id number] Ordering Dr: Flip Jessica MD [facility] DY: X-RAY - THORACIC SPINE REASON [...] CC: Flip Jessica MD; Sandra Bermudez DO Indigo Mixer: Signed 10-Sep-2016 Chest 1 View (Portable) Result: Comments: See Note; NOTES: [facility] Imaging Services [address] [place] [address] Verdana 4d Chest 1 View (Portable) MR#: [id number] Acct: [id number] Name: MANDY MONTERO Rep #: [id number] : 1990 F 26 From: Mandy Chávez MD PCP: Sandra Bermudez DO Status: PRE ER Study: Chest 1 View (Portable) Date of Exam: 09/10/16 Exam# [id number] Ordering Dr: Vinnie Sher MD STUDY: X-RAY [...] MD at 23:49 EST , Service support [phone], CC: Linden Sher MD; Sandra Bermudez DO Indigo Mixer: Signed 12-Mar-2016 Emergency Department Summary Result: Comments: See Note; NOTES: [facility] Medical Records Department [address] [place] [address] Emergency Department Summary MR#: [id number] Acct: [id number] Name: MANDY MONTERO Rep #: [id number] : 1990 25 From: Joseph Mcgee MD [...] Baxter Date Dictated: 02/29/16112 Date Transcribed: 02/29/16112 Indigo Mixer: Signed 28-Feb-2016 Discharge Instruction Result: Comments: See Note; NOTES: [facility] Medical Records Department [address] [place] [address] [place] [address] Discharge Instruction 02/28/161925 MR#: [id number] Acct: [id number] Name: MIGUELMANDY A Rep #: [id number] : 1990 25 From: Joseph Mcgee MD [...] problems, contact your doctor. Call [facility] ([phone]) or report to the closest Emergency Room. Call 911 if necessary. 224 <Electronically signed by Joseph Mcgee MD> Date Joseph Mcgee MD Cosigner Signature (If Indicated): Date ___ CC: Roe Baxter 28-Feb-2016 Abdomen/Pelvis without Cont Result: Comments: See Note; NOTES: [facility] Imaging Services [address] [place] [address] Verdana 4d Abdomen/Pelvis without Cont MR#: [id number] Acct: [id number] Name: MANDY MONTERO Rep #: [id number] : 1990 F 25 From: Seymour Villagomez MD PCP: Roe Baxter Status: REG ER Study: Abdomen/Pelvis without Cont Date of Exam: 02/28/16 Exam# [id number] Ordering Dr: Joseph Patton MD STUDY: CT [...] MD at 18:47 EDT , Service support [phone], CC: Roe Baxter; Joseph Mcgee MD Indigo Mixer: Signed 25-Feb-2016 Emergency Department Summary Result: Comments: See Note; NOTES: [facility] Medical Records Department [address] [place] [address] Emergency Department Summary MR#: [id number] Acct: [id number] Name: MANDY MONTERO Rep #: [id number] : 1990 25 From: Tomás Willis MD [...] C: Roe Baxter MD T: JENNIFER JOB: [id number] 02/25/16 1517 <Electronically signed by Tomás Willis MD> Date Tomás Willis MD Cosigner Signature (If Indicated): Date CC: Roe Baxter Date Dictated: 02/23/16 1521 Date Transcribed: 02/23/161520 Indigo Mixer: Signed 23-Feb-2016 Discharge Instruction Result: Comments: See Note; NOTES: [facility] Medical Records Department [address] [facility] [address] Discharge Instruction 02/23/16 1514 MR#: [id number] Acct: [id number] Name: MANDY MONTERO Rep #: [id number] : 1990 25 From: Tomás Willis MD [...] problems, contact your doctor. Call [facility] ([phone]) or report to the closest Emergency Room. Call 911 if necessary. [phone] <Electronically signed by Tomás Willis MD> Date Tomás Willis MD Cosigner Signature (If Indicated): Date CC: Roe Baxter 28-Jan-2016 Chest 1 View (Portable) Result: Comments: See Note; NOTES: [facility] Imaging Services [address] [place] [address] Verdana 4d Chest 1 View (Portable) MR#: [id number] Acct: [id number] Name: MANDY ACUNA Rep #: [id number] : 1990 F 25 From: Abdirahman Awad MD PCP: Linda Houston MD Status: PRE ER Study: Chest 1 View (Portable) Date of Exam: 01/28/16 Exam# [id number] Ordering Dr: Edita Willis MD STUDY: X-RAY [...] MD at 22:53 EDT , Service support [phone], RAD/Chest 1 View (Portable) IMPRESSION: Retrocar diac density in left lower lobe possibly representing atelectasis or infiltrate. Recommend lateral view for further assessment Electronically Signed: Abdirahman Awad MD at 22:53 EDT , Service support [phone], CC: Linda Houston MD; Tomás Willis MD Indigo Mixer: Signed Family History Unknown Family Member Name [...] Arm; Cuff Size: Standard Weight 87 lb 1-Rke-262791:54 Pulse 86 /min Comments: Pattern: Regular Respiration Rate 16 /min Comments: Pattern: Unlabored BP Systolic 140 mm[Hg] Comments: Patient Position: Sitting; Cuff Location: Left Arm; Cuff Size: Standard BP Diastolic 110 mm[Hg] Comments: Patient Position: Sitting; Cuff Location: Left Arm; Cuff Size: Standard Weight 80 lb Height 0 in Head Circumference 0.00 cm Results Date Description Value Details :37 TSH (92376) Comments: PATIENT NOT FASTINGPERFORMED BY: TasspassSaint Barnabas Medical CenterMaeqsv[address] [place] [address] [id number] BY: [place] [id number] TSH 1.030 {uIU/mL} (Normal) Range: 0.450-4.500 67-Qfw-966119:37 T4, FREE (THYROXINE) Comments: PATIENT NOT FASTINGPERFORMED BY: Tasspass[address] [id number] BY: What[employer] Hot[address] [id number] ([address]) T4,Free(Direct) 0.84 ng/dL (Normal) Range: 0.82-1.77 91-Fho-292231:37 T3, FREE (TRIDOTHYRONINE) Comments: PATIENT NOT FASTINGPERFORMED BY: Tasspass[address] [id number] BY: [employer] [address] [id number] ([address]) Triiodothyronine (T3), Free 2.6 pg/mL (Normal) Range: 2.0-4.4 71-Hyr-510886:37 CALCIFIDIOL (84695) VIT D Comments: PATIENT NOT FASTINGPERFORMED BY: What's Hot14 [address] Streetbl[address] [place] [id number] BY: Tasspass[address] [id number] 25 Vitamin D, 25-Hydroxy 42.6 ng/mL (Normal) Range: 30.0-100.0 Comments: Vitamin D deficiency has been defined by the [place] of[place]icine and an Endocrine Society practice guideline as alevel of serum 25-OH vitamin D less than 20 ng/mL (1,2).The Endocrine Society went on to further define vitamin Dinsufficiency as a level between 21 and 29 ng/mL (2).1. IOM ([place] of Medicine). 2010. Dietary reference intakes for calcium and D. [place]: The National Academies Press.2. Gabbi MF, Singh MCKEON, Pollo JOSEPH, et al. Evaluation, treatment, and prevention of vitamin D deficiency: an Endocrine Society clinical practice guideline. JCEM. 2010; 96(7):1911-30. 43-Cqj-930249:37 TRILEPTAL-OXCARBAZEPINE 259095 Comments: send results to dr delgado too; PATIENT NOT FASTINGPERFORMED BY: Company.com6370 [facility] [id number] BY: Tasspass[address] [id number] (87[address]) Oxcarbazepine 49 ug/mL (Abnormal) Range: 10-35 Comments: Detection Limit = 1 04-Kvz-512355:37 CBC with auto diff Comments: send results to dr sandy storm; PATIENT NOT FASTINGPERFORMED BY: Yo Pdmqym2841 [facility] [id number] BY: Tasspass[address] [id number] ([address]) Immature Grans (Abs) 0.0 {x10E3/uL} (Normal) Range: [...] 3.77-5.28 WBC 6.3 {x10E3/uL} (Normal) Range: 3.4-10.8 88-Nkv-664110:37 METABOLIC PANEL, Comments: send results to dr delgado too; PATIENT NOT FASTINGPERFORMED BY: [facility] Dilopr2088 [facility] [id number] BY: [facility] [address] [id number] [facility] ([address]) ALT (SGPT) 38 [iU]/L (Abnormal) Range: 0-32 [...] 6-20 Glucose 237 mg/dL (Abnormal) Range: 65-99 01-Qvr-213915:37 HGB A1C (42411) Comments: PATIENT NOT FASTINGPERFORMED BY: CB [facility] Ghigvp3029 [facility] [id number] BY: BN [facility] [address] [id number] Hemoglobin A1c 6.3 % (Abnormal) Range: 4.8-5.6 Comments: . Prediabetes: 5.7 - 6.4 Diabetes: >6.4 Glycemic control for adults with diabetes: <7.0 83-Xiw-132583:00 Urinalysis, Complete Comments: How was Urine Obtained? [facility] [address]wt[address]arrlt[address], [place], [id number] MUCUS, URINE 0 SEEN {/hpf} (Normal) BACTERIA [...] (Abnormal) CLARITY Clear (Normal) COLOR Yellow (Normal) 46-Ohh-407953:50 Basic Metabolic Profile (BMP) Comments: [facility] [address] [place], [place], [address] GAP 8 (Normal) Range: 5-15 CO2 28.0 [...] A.D.A. criteria.Please note revised GLUCOSE reference range /02/2018. 67-Zgx-998387:50 CBC W/Diff, Automated Comments: [facility] [address] [place], [address] Absolute Lymph 1.52 {X10_3/ul} (Normal) [...] 4.2-5.4 WBC 6.0 K/mm3 (Normal) Range: 4.4-11.0 49-Dqu-90776:00 Lactic Acid Comments: Yes/No query for Sepsis Lactate Rule [facility] [address]au[address] [place], [place], [address] LACTIC ACID 2.0 mmol/L (Normal) Range: 0.4-2.0 Comments: Critical Result(s) Called at: 18:33:30 01/24/2018 by:[facility] 70-Diu-937132:39 TSH (30255) Comments: PATIENT NOT FASTINGPERFORMED BY: CB [facility] Uphduy2482 [facility] [id number] BY: BN [facility] [address] [id number] TSH 1.150 {uIU/mL} (Normal) Range: 0.450-4.500 35-Ngo-187796:39 METABOLIC PANEL, Comments: PATIENT NOT FASTINGPERFORMED BY: TasspassSaint Barnabas Medical CenterCjgvkw5666 [facility] [id number] BY: [employer] [address] [id number] COMPREHENSIVE (23024) ALT (SGPT) 18 [iU]/L (Normal) Range: 0-32 [...] Glucose, Serum 138 mg/dL (Abnormal) Range: 65-99 36-Qcg-569898:39 CBC W/AUTO DIFF WBC Comments: PATIENT NOT FASTINGPERFORMED BY: TasspassSaint Barnabas Medical CenterJurbya6762 [facility] [id number] BY: T[address] [id number] ([address]) Immature Grans (Abs) 0.0 {x10E3/uL} (Normal) Range: [...] 3.77-5.28 WBC 6.6 {x10E3/uL} (Normal) Range: 3.4-10.8 60-Zio-190542:39 TRILEPTAL-OXCARBAZEPINE 888703 Comments: PATIENT NOT FASTINGPERFORMED BY: CB [facility] Xquluf7194 [facility] [id number] BY: BN [facility] [address] [id number] ([address]) Oxcarbazepine 28 ug/mL (Normal) Range: 10-35 Comments: Detection Limit = 1 52-Kgc-893299:39 CALCIFIDIOL (44062) VIT D Comments: PATIENT NOT FASTINGPERFORMED BY: Tasspass Zgkahx6217 [facility] [id number] BY: [employer] [address] [id number] 25 Vitamin D, 25-Hydroxy 56.3 ng/mL (Normal) Range: 30.0-100.0 Comments: Vitamin D deficiency has been defined by the [place] of[place]icine and an Endocrine Society practice guideline as alevel of serum 25-OH vitamin D less than 20 ng/mL (1,2).The Endocrine Society went on to further define vitamin Dinsufficiency as a level between 21 and 29 ng/mL (2).1. IOM ([place] of [employer]). 2010. Dietary reference intakes for calcium and D. [place]: The National Academies Press.2. Gabbi MF, Singh [place], Pollo JOSEPH, et al. Evaluation, treatment, and prevention of vitamin D deficiency: an Endocrine Society clinical practice guideline. JCEM. 2010; 96(7):1911-30. 28-Hbl-065896:39 HGB A1C (83953) Comments: PATIENT NOT FASTINGPERFORMED BY: [facility] Krqtoz7149 [facility] [id number] BY: T[address] [id number] Hemoglobin A1c 5.7 % (Abnormal) Range: 4.8-5.6 Comments: . Pre-diabetes: 5.7 - 6.4 Diabetes: >6.4 Glycemic control for adults with diabetes: <7.0 20-Apr-20174:11 THROAT CULTURE (62057) Comments: PATIENT NOT FASTINGPERFORMED BY: T[facility]pass Smwxep9489 [facility] [id number] Information: SRC:TH Result 1 RRF (Normal) Comments: Routine respiratory jasper Upper Respiratory Culture Final report (Normal) 73-Hsa-352249:35 CBC W/Diff, Automated Comments: [facility] [address] [place], [address] Absolute Lymph 1.23 {X10_3/ul} (Normal) Range: 0.83-4.51 [...] 4.2-5.4 WBC 4.9 K/mm3 (Normal) Range: 4.4-11.0 83-Ykm-306573:35 CRP Comments: [facility] Breskmebmj4330 [facility] [place], [address] C-REACTIVE PROT < 2.90 mg/L (Normal) Range: 0.0-3.0 Comments: C-Reactive Protein (CRP) provides useful information for thediagnosis, therapy and monitoring of inflammatory processesand associated diseases. For the evaluation of Relative Riskfor Cardiovascular Dise ase, a High Sensitivity CRP (HSCRP)should be ordered. 9-Bcz-812704:15 Culture, Nose Comments: [facility] Mov[address]tsbmr[address] [place], [address] CUN See Note (Normal) Comments: Comments: THICK [...] $ <=20 S(NF) indicates non-formulary drug at [facility]. Ap proval by Infectious Disease Specialist required before non-formulary drugs may be ordered and/or dispensed. Pseudomonas aeroginosa: REACTION Cefepime $ <=1 S Ceftazidime *NF 2 S Ciprofloxacin $ 2 I Gentamicin $ <=1 S Imipenem *NF 1 S Levofloxacin $ 4 I Piperacillin/Tazobactam $$ 8 S Tobramycin $ <=1 S(NF) rocky cates non-formulary drug at [facility]. Approval by Infectious Disease Specialist required before non-formulary drugs may be ordered and/or dispensed. 78-Aek-024931:34 LIPID PANEL (20462) Comments: PATIENT NOT FASTINGPERFORMED BY: [facility] Ppocua7802 [facility] [id number] BY: [facility] [address] [id number] LDL/HDL Ratio 1.5 {ratio_units} (Normal) Range: 0.0-3.2 Comments: LDL/HDL Ratio Men Women 1/2 Avg.Risk 1.0 1.5 Av g.Risk 3.6 3.2 2X Avg.Risk 6.2 5.0 3X Avg.Risk 8.0 6.1 LDL Cholesterol Calc 76 mg/dL (Normal) Range: 0-99 VLDL Cholesterol Dirk 17 mg/dL (Normal) Range: 5-40 HDL Cholesterol 50 mg/dL (Normal) Triglycerides 84 mg/dL (Normal) Range: 0-149 Cholesterol, Total 143 mg/dL (Normal) Range: 100-199 72-Kkr-968646:34 METABOLIC PANEL, Comments: PATIENT NOT FASTINGPERFORMED BY: [place] acquired by [employer]/[place]70 [facility] [id number] BY: [address] [id number] [facility] ([address]) ALT (SGPT) 20 [iU]/L (Normal) Range: 0-32 [...] Glucose, Serum 137 mg/dL (Abnormal) Range: 65-99 90-Rhp-824991:34 CBC with auto diff Comments: PATIENT NOT FASTINGPERFORMED BY: Mantara6370 [facility] [id number] BY: [facility] [address] [id number] ([address]) Immature Grans (Abs) 0.0 {x10E3/uL} (Normal) Range: [...] 3.77-5.28 WBC 4.5 {x10E3/uL} (Normal) Range: 3.4-10.8 96-Lic-036186:34 TRILEPTAL-OXCARBAZEPINE 166617 Comments: PATIENT NOT FASTINGPERFORMED BY: [facility] Qxmter4615 [facility] [id number] BY: [facility] [address] [id number] (08[address]) Oxcarbazepine 23 ug/mL (Normal) Range: 10-35 Comments: Detection Limit = 1 32-Onj-501810:34 HGB A1C (40605) Comments: PATIENT NOT FASTINGPERFORMED BY: [facility] Owihuf2599 [facility] [id number] BY: [facility] Plbralrjpc3586 [facility] [id number] Hemoglobin A1c 6.1 % (Abnormal) Range: 4.8-5.6 Comments: . Pre-diabetes: 5.7 - 6.4 Diabetes: >6.4 Glycemic control for adults with diabetes: <7.0 16-Cqx-870651:34 CALCIFIDIOL (75788) VIT D Comments: PATIENT NOT FASTINGPERFORMED BY: [facility] Uhupva5647 [facility] [id number] BY: [facility] Ypgjpcoeut7690 [facility] [id number] 25 Vitamin D, 25-Hydroxy 49.1 ng/mL (Normal) Range: 30.0-100.0 Comments: Vitamin D deficiency has been defined by the [place] of[place]icine and an Endocrine Society practice guideline as alevel of serum 25-OH vitamin D less than 20 ng/mL (1,2).The Endocrine Society went on to further define vitamin Dinsufficiency as a level between 21 and 29 ng/mL (2).1. IOM ([place] of [place]). 2010. Dietary reference intakes for calcium and D. [place]: The National Academies Press.2. Gabbi MF, Singh [place], Pollo JOSEPH, et al. Evaluation, treatment, and prevention of vitamin D deficiency: an Endocrine Society clinical practice guideline. JCEM. 2010; 96(7):1911-30. 39-Nwy-322783:15 Culture, Throat Comments: [facility] [address] [place], [place], [address] CUT See Note (Normal) Comments: Culture, ThroatMixed [...] $ <=20 S(NF) indicates non-formulary drug at [facility]. Approval by Infec tious Disease Specialist required before non-formulary drugs may be ordered and/or dispensed. 27-Lop-08499:30 Culture, Wound Comments: [facility] [address] [place], [address] CUW See Note (Normal) Comments: Comments: COLLECTED FROM TRACHEA STOMA/DX THICK SPUTUMGram StainGram Stain No organisms seen Wound CultureNo Haemophilus, Streptococcus pneumoniae, beta-hemolytic Streptococcus or Staphylococcus aureu s isolated. Copy of report sent to Infection Control Printer [id number] 12/09/16 3806 DCANNON. ORGANISM 1: Serratia marcescensAmount Growth 1+ [...] $ <=20 S(NF) indicates non-formulary drug at [facility]. Approval by Infectious Disease Specialist required before non-formulary drugs may be ordered and/or dispensed. Pseudomonas aeroginosa: REACTION Cefepime $ <=1 S Ceftazidime *NF <=1 S Ciprofloxacin $ 0.5 S Gentamicin $ <=1 S Imipenem *NF 1 S Levofloxacin $ 1 S Piperacillin/Tazobactam $$ 8 S Tobramycin $ <=1 S(NF) indicates non-formulary drug at [facility]. Approval b y Infectious Disease Specialist required before non-formulary drugs may be ordered and/or dispensed. :37 Base Excess ISTAT Comments: [place] [address] [place] [address] BE ISTAT 6 mmol/L (Abnormal) :37 Bicarbonate ISTAT Comments: [address] [address] [address] [place] [address] HCO3 ISTAT 30 mmol/L (Abnormal) Range: 22-26 Comments: Site = R BrachialAllens Test = NAMode = A-CDevice = VentFIO2 = 40Results To = ED MDTime Given = 2350MV = 4.5VT = 250RR = 21PEEP = 7 :37 Blood Gas Specimen Type Comments: [address] [place], [place] [address] BLD GAS TYPE ART (Normal) 53-Qkn-920048:37 pCO2 - ISTAT 40.0 {mmHg} (Normal) Comments: [address] [address] [address] [place] [address] Range: 35-45 07-Fcs-533276:37 pH - I-STAT 7.48 (Abnormal) Comments: [address] [address] [place] 44[address]71 Range: 7.35-7.45 56-Ezt-064308:37 PO2 I-STAT 65 {mmHG} (Abnormal) Comments: [place] [address] [address] [place] [address] Range: 75-100 43-Rvn-594472:37 SO2 ISTAT 94 % (Abnormal) Comments: [place] [address] [place] [address] Range: 95-99 59-Oyx-464468:37 Total Carbon Dioxide ISTAT Comments: [facility] LaboratoryPoint of Gyso[address] [place] [address]161 TOTAL CO2 ISTAT 31 mmol/L (Normal) 91-Gnl-006779:55 Basic Metabolic Profile (BMP) Comments: [facility] Wdxsxfrqiv2879 [place], [address] GAP 5 (Normal) Range: 5-15 CO2 [...] 7-18 GLU 79 mg/dL (Normal) Range: 70-110 48-Hna-169463:55 CBC W/Diff, Automated Comments: [facility] Dkwcaqgusc6036 [place], [address] Absolute Lymph 1.51 {X10_3/ul} (Normal) Range: [...] 4.2-5.4 WBC 4.6 K/mm3 (Normal) Range: 4.4-11.0 4-Nqk-102879:52 Anaerobic and Aerobic Comments: PERFORMED BY: [facility] CenterTmtnnf4059 [facility] [id number] Information: buttock SRC:WO Culture Antimicrobial MIHEAD (Normal) [...] 72 hours. Anaerobic Culture Final report (Normal) 3-Fhd-912293:39 CBC With Differential/Platelet Comments: PERFORMED BY: CB [facility] Kvfhbv4916 [facility] [id number] BY: BN [facility] [address] [id number] Immature Grans (Abs) 0.0 {x10E3/uL} (Normal) Range: [...] :39 Comp. Metabolic Panel Comments: PERFORMED BY: Netlogonlin6370 [facility] [id number] BY: [facility] [id number] (14) ALT (SGPT) 27 [iU]/L (Normal) Range: [...] 65-99 :39 Oxcarbazepine (Trileptal),S Comments: PERFORMED BY: [facility] [place] [id number] BY: [address] [id number] Oxcarbazepine 24 ug/mL (Normal) Range: 10-35 Comments: Detection Limit = 1 :39 TSH 1.640 {uIU/mL} Comments: PERFORMED BY: [place] [address] [facility] [id number] BY: [address] [id number] (Normal) Range: 0.450-4.500 :39 Vitamin B12 and Folate Comments: PERFORMED BY: [address] [id number] BY: [address] [id number] Folate (Folic Acid), 8.0 ng/mL (Normal) Comments: A serum folate concentration of less than 3.1 ng/mL isconsidered to represent clinical deficiency. Serum Vitamin B12 1048 pg/mL Range: 211-946 (Abnormal) : Vitamin D, 40.7 ng/mL (Normal) Comments: PERFORMED BY: [place] [address] [facility] [id number] BY: [address] [id number] 39 25-Hydroxy Range: 30.0-100.0 Comments: Vitamin D deficiency has been defined by the [place] ofMedicine and an Endocrine Society practice guideline as alevel of serum 25-OH vitamin D less than 20 ng/mL (1,2).The Endocrine Society went on to further define vitamin Dinsufficiency as a level between 21 and 29 ng/mL (2).1. IOM ([place] of Medicine). 2010. Dietary reference intakes for calcium and D. [place]: The National Academies Press.2. Gabbi MF, Singh NC, Pollo JOSEPH, et al. Evaluation, treatment, and prevention of vitamin D deficiency: an Endocrine Society clinical practice guideline. JCEM. 2010; 96(7):1911-30. 15-Iuu-736028:00 Urinalysis, Complete Comments: Order Date: 02/28/16How was Urine Obtained? [facility] Cdbizhdybg6981 [address]. [place], [place], [id number] MUCUS, URINE RARE {/hpf} (Normal) BACTERIA 0 [...] CLARITY Sl. Cloudy (Normal) COLOR Yellow (Normal) 85-Vmi-821161:00 Basic Metabolic Profile (BMP) Comments: [facility] Mqmjadqdme6849 [address] [place], [place], [address] GAP 8 (Normal) Range: 5-15 CO2 26.0 [...] 7-18 GLU 84 mg/dL (Normal) Range: 70-110 53-Svf-341624:00 CBC W/Diff, Automated Comments: [facility] Aypewmwdck1501 [address]. [place], [place], [address] Absolute Lymph 1.11 {X10_3/ul} (Normal) Range: 0.83-4.51 [...] 4.2-5.4 WBC 5.5 K/mm3 (Normal) Range: 4.4-11.0 37-Orv-873634:00 Lactic Acid Comments: [facility] Drffkecikk6427 [place], [address] LACTIC ACID 1.6 mmol/L (Normal) Range: 0.4-2.0 36-Rng-000170:00 Lipase Comments: [address] [place], [address] LIPASE 177 U/L (Normal) Range: 73-393 23-Nmm-258606:00 Liver Profile Comments: [address] [place], [address] D BILI 0.08 mg/dL (Normal) Range: [...] (Normal) Range: 6.4-8.2 :30 CDIFF (Molecular) Comments: [address] [place], [address] CDIFF See Note (Normal) Comments: Cdiff-MolecularC. Diff DNA Negative- No toxigenic C. Diff DNA Detected :30 ENTERIC PATHOGEN PANEL STOOL Comments: [address] [place], [address] EP PANEL See Note (Normal) Comments: [...] DetectedRotavirus Not Detected 19-Feb-20167:30 Stool Lactoferrin/WBC Comments: [facility] Bfhcujjpwt2434 [place], [address] WBCST See Note (Normal) Comments: Stool Lacto/WBCFecal WBC Lactoferrin Negative: No Fecal WBC Lactoferrin present :30 Stool Occult Blood iFOB Comments: [address] [place], [address] STOB See Note (Normal) Comments: STOB iFOBOccult Blood Negative 36-Kkj-276770:35 Urinalysis, Complete Comments: How was Urine Obtained? CATHETER SPECIMENW[address] [place], [address] MUCUS, URINE 0 SEEN {/hpf} [...] (Normal) CLARITY Cloudy (Normal) COLOR Yellow (Normal) 24-Bct-205581:00 CBC W/Diff, Automated Comments: [address] [place], [address] SMEAR COMMENT SCANNED (Normal) Comments: [...] 4.2-5.4 WBC 6.8 K/mm3 (Normal) Range: 4.4-11.0 93-Vmg-792327:00 Comprehensive Metabolic Profil Comments: [facility] Lkmbycpoap9455 [place], [address] GAP 9 (Normal) Range: 5-15 CO2 29.0 [...] 7-18 GLU 84 mg/dL (Normal) Range: 70-110 46-Xvz-658779:00 Lactic Acid Comments: [facility] Zwxnlpyqps9681 [place], [address] LACTIC ACID 2.6 mmol/L (Abnormal) Range: 0.4-2.0 91-Ick-821263:00 Partial Thromboplast Time Comments: [facility] Dolioivmey2932 [place], [address] PTT 26.7 s (Normal) Range: 24.1-36.2 34-Nob-229063:00 Prothrombin Time w/INR Comments: [facility] Ghvpvcklwa4934 [address] [place], [place], [address] INR 1.0 (Normal) PROTIME 13.1 s (Normal) Range: 11.7-14.9 20-Jan-20161:25 PREALBUMIN (64584) Comments: PERFORMED BY: [facility]6370 [facility] [id number] Prealbumin 27 mg/dL (Normal) Range: 9-31 Comments: [...] - 36 >70 years 9 - 32 16-Xvg-591253:16 Clostridium difficile Toxin Comments: PERFORMED BY: [facility]Co[facility] CenterQwwzpa5171 [facility] [id number] A+B, EIA (90608) C difficile Toxins A+B, EIA Negative (Normal) 68-Xlj-161731:00 Culture, Urine Comments: [facility] Ullhizecir3171 [place], [address] CUUR See Note (Normal) Comments: Urine CultureCulture exhibits no growth. 47-Kzf-124931:00 Urinalysis, Complete Comments: How was Urine Obtained? CLEAN [facility] Xpozejtfdi8726 [place], [address] MUCUS, URINE 0 SEEN {/hpf} [...] CLARITY Sl. Cloudy (Normal) COLOR Yellow (Normal) 38-Ovv-732529:30 Culture, Urine Comments: [facility] Cgkaavkusd1590 [place], [address] CUUR See Note (Normal) Comments: Urine CultureORGANISM 1: Enterococcus faecalisColony Count >100,000 Enterococcus faecalis: REACTION Ampicillin $ <=2 S Benzylpenicillin NF 2 S Ciprofloxacin $ <=0.5 S Gentamicin SYN-S S Levofloxacin $ 1 S Linezolid $$$$ 2 S Nitrofurantoin $ <=16 S Streptomycin $ SYN- S S Tetracycline NF >=16 R Vancomycin $ 1 S(NF) indicates non-formulary drug at [facility]. Approval by Infectious Disease Specialist required before non-formulary drugs may be ordered and/or dispensed. * CLSI guidelines does not recommend testing of cephalosporins. This interpretation is deduced from Beta-lactam/penicillin results. 67-Kfn-664658:30 Urinalysis, Complete Comments: How was Urine Obtained? Urine, [facility] Lpkswkbtxf3380 [facility] [place], [address] MUCUS, URINE 0 SEEN {/hpf} [...] CLARITY Sl. Cloudy (Normal) COLOR Yellow (Normal) 23-Swm-071943:00 ENTERIC PATHOGEN PANEL STOOL Comments: [facility] Kmqjmbjfja5808 [facility] [place], [place], [address] EP PANEL See Note (Normal) Comments: RESULTS CALLED TO DR. HOUSTON 09/10/15 @2563 BY [facility].EP PANEL STOOLNot detected for Campylobacter group, [...] DetectedVIBRIO Not DetectedNorovirus Not DetectedRotavirus Not Detected 93-Box-383782:00 Stool Lactoferrin/WBC Comments: [facility] Hjmfbmbzbs7418 [address]. [place], [place], [address] WBCST See Note (Normal) Comments: RESULTS CALLED TO DR. HOUSTON 09/10/15 @1952 BY THADDEUS.Stool Lacto/WBCFecal WBC Lactoferrin Negative: No Fecal WBC Lactoferrin present 16-Hws-961415:00 Stool Occult Blood iFOB Comments: [facility] Gbadiawdxt7720 [address] [place], [place], [address] STOB See Note (Normal) Comments: RESULTS CALLED TO DR. HOUSTON 09/10/15 @1952 BY THADDEUS.STOB iFOBOccult Blood Negative :29 CBC with auto diff Comments: PERFORMED BY: [facility] Paibqt2828 [facility] [id number] BY: [facility] [address] [id number] ([address]) Immature Grans (Abs) 0.0 {x10E3/uL} (Normal) Range: [...] METABOLIC PANEL, Comments: PERFORMED BY: CB [facility] Abpjgh2225 [facility] [id number] BY: BN [facility] [address] [id number] COMPREHENSIVE (57226) ALT (SGPT) 17 [iU]/L (Normal) Range: 0-32 [...] 73 mg/dL (Normal) Range: 65-99 :29 CALCIFIDIOL (09774) VIT D Comments: PERFORMED BY: [employer] [facility] [id number] BY: Tasspass[address] [id number] 25 Vitamin D, 25-Hydroxy 39.5 ng/mL (Normal) Range: 30.0-100.0 Comments: Vitamin D deficiency has been defined by the [place] of[place]icine and an Endocrine Society practice guideline as alevel of serum 25-OH vitamin D less than 20 ng/mL (1,2).The Endocrine Society went on to further define vitamin Dinsufficiency as a level between 21 and 29 ng/mL (2).1. IOM ([place] of Medicine). 2010. Dietary reference intakes for calcium and D. [place]: The National Academies Press.2. Gabbi MF, Singh [place], Pollo JOSEPH, et al. Evaluation, treatment, and prevention of vitamin D deficiency: an Endocrine Society clinical practice guideline. JCEM. 2010; 96(7):1911-30. 20-Jan-20161:29 TRILEPTAL-OXCARBAZEPINE 048528 Comments: PERFORMED BY: [employer] acquired by [employer]70 [facility] [id number] BY: Tasspass[address] [id number] ([address]) Oxcarbazepine 38 ug/mL (Abnormal) Range: 10-35 Comments: Detection Limit = 1 30-Zre-251339:30 CBC W/Diff, Automated Comments: [facility] Tptzlkcshr4567 [address] [place], [place], [address] Absolute Lymph 0.90 {X10_3/ul} (Normal) Range: 0.83-4.51 [...] 4.2-5.4 WBC 5.2 K/mm3 (Normal) Range: 4.4-11.0 72-Hsj-251474:30 Comprehensive Metabolic Profil Comments: [facility] Oivjcpzzey0792 [address] [place], [place], [address] GAP 8 (Normal) Range: 5-15 CO2 26.0 [...] 200 mg/dLsuggests DIABETES MELLITUS per A.D.A. criteria. 04-Kjr-879112:30 Lipid Profile Comments: [facility] Qvnjycdfan3876 [address] [place], [place], [address] VLDL 38 mg/dL (Normal) Range: 5-40 LDL [...] 200-240 mg/dL Borderline >240 mg/dL High Risk 12-Sxg-534396:30 Prealbumin Comments: [facility] Lhuecibxqm9613 [place], [address] PREALBUMIN 26.0 mg/dL (Normal) Range: 20.0-40.0 35-Vfr-941981:30 Thyroid Stim Hormone (TSH) Comments: [facility] Dvgelugabs4448 [place], [address] TSH 1.02 {uIU/mL} (Normal) Range: 0.358-3.74 93-Ilr-005703:30 Trileptal-Oxcarbazepine Comments: [facility] (refer to report for specific site)refer to report for address and phone number TRILEPT [id number] 38 ug/mL (Abnormal) Range: 10-35 Comments: Detection Limit = 1Performed at: [facility] LabCo[address] [id number] Director: Reji Gibson MD, Phone: [phone] 61-Mbj-291560:30 Vitamin D,25 Hydroxy Comments: [facility] Bbogtwoswl[address] [place] [address] [place], [address] Vitamin D 25-OH 38.4 ng/mL (Normal) Comments: Vitamin D 25(OH) Status Range Deficiency <20 ng/mL (50nmol/L) Insuffciency 20 - 30 ng/mL (50 - 75 nmol/L) Sufficiency 30 - 100 ng/mL (75 - 250 nmol/L) Toxicity >100 ng/mL (>250 nmol/L) 5-Quu-906581:45 CBC-Complete Blood Cnt No Diff Comments: Test performed at:[facility] Euzzclavfk[address] [place] [address] [place] 88[address]41 MPV 10.5 fL (Normal) Range: 6.2-12.0 PLT [...] 4.2-5.4 WBC 6.3 K/mm3 (Normal) Range: 4.4-11.0 7-Kfk-457586:45 Comprehensive Metabolic Profil Comments: Is Patient Taking Vitamins or Folic Acid Supplements? NTest performed at:[facility] Kcoargmiwd6253 [address] [place], [place] [address] GAP 7 (Normal) Range: 5-15 CO2 29.0 [...] <126 mg/dLsuggests IMPAIRED HOMEOSTASIS per A.D.A. criteria. 8-Don-934333:45 CRP Comments: Is Patient Taking Vitamins or Folic Acid Supplements? NTest performed at:[address] [place] [address] C-REACTIVE PROT < 2.90 mg/L (Normal) Range: 0.0-3.0 Comments: C-Reactive Protein (CRP) provides useful information for thediagnosis, therapy and monitoring of inflammatory processesand associated diseases. For the evaluation of Relative Riskfor Cardiovascular Dise ase, a High Sensitivity CRP (HSCRP)should be ordered. :45 Erythrocyte Sed Rate Comments: Test performed at:[address] [place] [address] SED RATE 13 mm/h (Normal) Range: 0-20 :45 Folates, (Folic Acid) Comments: Is Patient Taking Vitamins or Folic Acid Supplements? NTest performed at:[address] [place] [address] FOLATES 15.70 ng/mL (Normal) Range: 3.1-17.5 :45 Free T3 Comments: Is Patient Taking Vitamins or Folic Acid Supplements? NTest performed at:[address] [place] [address] FREE T3 2.4 pg/mL (Normal) Range: 2.18-3.98 :45 Miscellaneous Lab Procedure Comments: Test(s) Ordered: OXCARBAZEPINE, #[id number], RED TOP SERUM/RFTest performed at:[address] [place] [address] MISC Comments: Oxcarbazepine (Trileptal), S Oxcarbazepine 35 ug/mL Ref: 35 Detection Limit=1 TESTING PERFOR MED AT [facility] (Normal) rp. ORIGINAL REPORT ON FILE IN LAB CONTAINS ADDITIONAL TEST SITE INFORMATION. TEST :45 Prealbumin Comments: Is Patient Taking Vitamins or Folic Acid Supplements? NTest performed at:[facility] Dfaisvdwdj475[address] [place] [address] PREALBUMIN 30.9 mg/dL (Normal) Range: 20.0-40.0 :45 ,Serum,hCG Quali. Comments: Test performed at:[facility] [address] [place] [address] HCGSQUAL NEGATIVE {Negative} (Normal) Range: 0-9 Nonpreg HCG Qual triggr < 1 m[iU]/mL (Normal) :45 Prolactin Comments: Is Patient Taking Vitamins or Folic Acid Supplements? NTest performed at:[facility] [address] [place], [place] [address] PROLACTIN 9.5 ng/mL (Normal) Comments: NORMAL REFERENCE RANGES FEMALE NON- 2.2 - 30.3 ng/mL 8.1 - 347.6 ng/mL POST-MENOPAUSAL 0.7 - 3 1.5 ng/mL MALE 2.5 - 17.4 ng/mLNEW TEST METHOD AND REFERENCE RANGES FEBRUARY 01, 2012:45 T4 Free Direct Comments: Is Patient Taking Vitamins or Folic Acid Supplements? NTest performed at:[facility] By[address] [place] [address] T4 FREE DIRECT 0.74 ng/dL (Abnormal) Range: 0.76-1.46 :45 Thyroid Stim Hormone (TSH) Comments: Is Patient Taking Vitamins or Folic Acid Supplements? NTest performed at:[facility] Eqvkj[address]aw[address] [place] [address] TSH 1.39 {uIU/mL} (Normal) Range: 0.358-3.74 :45 Urinalysis, Routine (Dipstick) Comments: How was Urine Obtained? Urine, RandomTest performed at:[facility] Redpahwpav1689 [place] [address] LEUK ESTERASE 500 /ul (Abnormal) OCCULT BLOOD-UR Negative /ul (Normal) NITRITE UR Negative (Normal) UROBILI Normal mg/dL (Normal) PROT DIPSTX Negative mg/dL (Normal) pH UR 8.0 (Normal) Range: 5.0 - 8.0 SP.GR. DIPSTX 1.010 (Normal) Range: 1.002-1.030 KETONE UR Negative mg/dL (Normal) BILIRUBIN URINE Negative mg/dL (Normal) GLUCOSE, UR Normal mg/dL (Normal) CLARITY Sl. Cloudy (Normal) COLOR Yellow (Normal) 3-Xoc-282828:45 Vitamin B12 1089 pg/mL (Abnormal) Comments: Test performed at:[facility] Jxtumfpxwf4[address] [place] [address] Range: 211-911 9-Mnp-959389:45 Vitamin D,25 Hydroxy Comments: Test performed at:[facility] Qfwbmxrfkc[address] [place] [address] Vitamin D 25-OH 23.9 ng/mL (Normal) Comments: Vitamin D 25(OH) Status Range Deficiency <20 ng/mL (50nmol/L) Insuffciency 20 - 30 ng/mL (50 - 75 nmol/L) Sufficiency 30 - 100 ng/mL (75 - 250 nmol/L) Toxicity >100 ng/mL (>250 nmol/L) 97-Wiz-092295:43 ALBUMIN SERUM (01232) Comments: PATIENT NOT FASTINGPERFORMED BY: [facility] [id number] Albumin, Serum 4.7 g/dL (Normal) Range: 3.5-5.5 20-Cvv-508666:43 PREALBUMIN (04636) Comments: PATIENT NOT FASTINGPERFORMED BY: [facility] [id number] Prealbumin 29 mg/dL (Normal) Range: 20-40 94-Rwm-334565:21 ANJELICA CULTURE-OTHER (04592) Comments: PATIENT NOT FASTINGPERFORMED BY: Miroox RoadDublin [place] [id number] Information: SRC:THRT [id number] Result 1 RRF (Normal) Comments: Routine respiratory jasper Upper Respiratory Culture Final report (Normal) 13-Hwe-515068:43 PROLACTIN (13653) Comments: PATIENT NOT FASTINGPERFORMED BY: [facility]6370 [facility] [id number] Prolactin 13.8 ng/mL (Normal) Range: 4.8-23.3 83-Cqp-299258:43 T3, FREE (TRIDOTHYRONINE) (54950) Comments: PATIENT NOT FASTINGPERFORMED BY: [place] 4027470 [facility] [id number] Triiodothyronine,Free,Serum 3.3 pg/mL (Normal) Range: 2.0-4.4 56-Ewe-436344:43 T4, FREE (THYROXINE) (78761) Comments: PATIENT NOT FASTINGPERFORMED BY: [facility]6370 [facility] [id number] T4,Free(Direct) 1.14 ng/dL (Normal) Range: 0.82-1.77 07-Naf-237756:43 TSH (82619) Comments: PATIENT NOT FASTINGPERFORMED BY: [facility]6370 [facility] [id number] Information: 065757,[id number] TSH 1.580 {uIU/mL} (Normal) Range: 0.450-4.500 03-Bet-084281:00 CBCD ANC 1.8 {X10_3/uL} (Abnormal) Range: 2.0-7.7 [...] CDIFF See Note (Normal) Comments: FAXED TO [employer] C. Diff DNA Positive-Toxigenic C. Difficile DNA [...] Negative- No toxigenic C. Diff DNA Detected 8-Oya-780664:55 Oxcarbazepine (Trileptal),S Comments: PERFORMED BY: [employer]ri [facility] [id number] BY: [address] [id number] Oxcarbazepine 32 ug/mL (Normal) Range: 10-35 Comments: Detection Limit = 1 :55 CALCIFIDIOL (42176) VIT D Comments: PERFORMED BY: [employer] [facility] [id number] BY: [employer] [id number] 25 Vitamin D, 25-Hydroxy 27.4 ng/mL (Abnormal) Range: 30.0-100.0 Comments: Vitamin D deficiency has been defined by the [place] ofMedicine and an Endocrine Society practice guideline as alevel of serum 25-OH vitamin D less than 20 ng/mL (1,2).The Endocrine Society went on to further define vitamin Dinsufficiency as a level between 21 and 29 ng/mL (2).1. IOM ([place] of Medicine). 2010. Dietary reference intakes for calcium and D. [place]: The National Academies Press.2. Gabbi MF, Singh MCKEON, Pollo JOSEPH, et al. Evaluation, treatment, and prevention of vitamin D deficiency: an Endocrine Society clinical practice guideline. JCEM. 2010; 96(7):1911-30. :55 Folate (90815) Comments: PERFORMED BY: [employer] [facility] [id number] BY: [address] [id number] Folate (Folic Acid), Serum 16.3 ng/mL (Normal) Comments: A serum folate concentration of less than 3.1 ng/mL isconsidered to represent clinical deficiency. :55 VITAMIN B-12 (CYANOCOBALAMIN) Comments: PERFORMED BY: [employer] Odueqa4688 [facility] [id number] BY: [address] [id number] (48933) Vitamin B12 889 pg/mL (Normal) Range: 211-946 :55 TSH (16891) Comments: PERFORMED BY: [employer] [facility] [id number] BY: [address] [id number] TSH 1.670 {uIU/mL} (Normal) Range: 0.450-4.500 :55 SED RATE ERYTHROCYTE Comments: PERFORMED BY: [employer] [facility] [id number] BY: [address] [id number] (98557) Sedimentation Rate-Westergren 6 mm/h (Normal) Range: 0-32 :55 METABOLIC PANEL, Comments: PERFORMED BY: Netlogonlin6370 [facility] [id number] BY: [employer] [id number] [facility] (89157) ALT (SGPT) 11 [iU]/L (Normal) Range: 0-32 [...] cells when received.This may adversely affect serumChemistries. 9-Ata-258791:55 C-REACTIVE PROTEIN (85890) Comments: PERFORMED BY: [employer] [facility] [id number] BY: Yo [address] [id number] C-Reactive Protein, Quant 0.9 mg/L (Normal) Range: 0.0-4.9 :55 CBC (AUTO) (62213) Comments: PERFORMED BY: [employer] [facility] [id number] BY: Tasspass[address] [id number] Platelets 213 {x10E3/uL} (Normal) Range: 140-415 Comments: [...] of these values in the reference population. 2-Yud-564898:29 ANJELICA CULTURE-OTHER (42073) Comments: PATIENT NOT FASTINGPERFORMED BY: [facility]6370 [facility] [id number] Information: SRC:THRT [id number] Result 1 RRF (Normal) Comments: Routine respiratory jasper Upper Respiratory Culture Final report (Normal) 8-Uzh-807436:03 Rapid Strep Test, Office (81181) Rapid Strep Test, Negative (Normal) Office 24-Wvz-523160:55 CDIF See Note (Normal) Comments: A positive [...] in these cases. C. DIFF ANTIGENS POSITIVE 07-Poz-007883:30 CDIF See Note (Normal) Comments: RESULTS CALLED [...] Comments: C. DIFF ANTIGENS NEGATIVE :2 TRILEPT [id number] 20 ug/mL (Normal) Range: 10-35 4 Comments: Detection Limit = 1Performed at: [facility] [address] [id number] Director: Reji Gibson MD, Phone: [phone] 06-Iut-973964:1 C DIF TOXIN/AG See Note (Normal) Comments: RESULTS CALLED TO 06/23/112004 VONDA ELAM.REPORT READ BACK BY SAME . * This is an amended result. * A 5 prior result that was reported as final has been changed.06/23/112004 by IESHAPreviously reported as: C. DIFF ANTIGENS POSITIVE 86-Fpn-045193:46 COMP METABOLIC GAP 11 (Normal) Range: 5-15 [...] 7-18 GLU 71 mg/dL (Normal) Range: 70-110 37-Xka-202667:41 CBCD ABSOLUTE NEUT 5.0 3/uL (Normal) Range: [...] 4.2-5.4 WBC 7.2 K/mm3 (Normal) Range: 4.4-11.0 9-Rrt-536246:49 CULTURE, THROAT See Note (Normal) Comments: Normal [...] STOOL/SHIG Comments: RESULTS CALLED TO OFFICE TO THAISGEIYZGXZ51/04/10 115KRISTIAN DAWSON.REPORT READ BACK BY SAME . [...] Cyclospora, or Microspo ridia. TESTING PERFORMED AT [facility]. ORIGINAL REPORT ON FILE IN LAB [...] Cyclospora, or Microspo ridia. TESTING PERFORMED AT [facility]. ORIGINAL REPORT ON FILE IN LAB CONTAINS ADDITIONAL TEST SITE INFORMATION. OVA/ PARASITES EXAM NO OVA, CYSTS, OR PARASITES FOUND. :20 WBC,STOOL See Note (Normal) Comments: FECAL WBCs NONE SEEN 99-Goo-260894:14 C DIF TOXIN See Note (Normal) :44 O AND P See Note (Normal) Comments: OVA AND PARASITES EXAM, ROUTINE These results were obtained using wet preparation(s) and trichrome stained smear. This test does not include testing for Crytosporidium parvum, Cyclospora, or Microspo ridia. TESTING PERFORMED AT [facility]. ORIGINAL REPORT ON FILE IN LAB [...] Cyclospora, or Microspo ridia. TESTING PERFORMED AT [facility]. ORIGINAL REPORT ON FILE IN LAB [...] :00 TSH 1.63 {uIU/mL} (Normal) Range: 0.358-3.74 32-Jlq-361046:00 CULTURE, SPUTUM GRAM STAIN See Note (Normal) Comments: GRAM STAIN RARE WHITE BLOOD CELLS RARE GRAM POSITIVE COCCI RARE GRAM NEGATIVE RODS Plan of Care Name Dates Details Instructions Type II diabetes mellitus, well controlled : Continue Current Prescription(s) Indication: Type II diabetes mellitus, well controlled Convulsions : Reviewed Direct Service Worker Letter Indication: Convulsions Neuromuscular scoliosis : Follow [...] Cystitis, acute Planned Observations URINE ANJELICA CULTURE-IDENTIFICATN ([id number])Indication: Abnormal urine On: 6-Oaj-018036:25 Request MRSA Culture ([id number])Indication: Thick sputum On: 4-Psx-096869:32 Request Anaerobic & Aerobic Culture ([id number])Indication: Thick sputum On: 00-Jhz-644296:46 Request Comments: collected from trachea stoma Anaerobic & Aerobic Culture ([id number])Indication: Cellulitis of groin, right On: 1-Cke-405435:44 Request TRILEPTAL-OXCARBAZEPINE [id number] ([id number])Indication: Diarrhea On: 1-Eiq-783699:24 Request VITAMIN B12 AND FOLATES (33354)Indication: Diarrhea On: 8-Ega-134578:24 Request CALCIFEDIOL ([id number])Indication: Diarrhea On: 7-Plq-309438:24 Request CALCIFEDIOL ([id number])Indication: Diarrhea On: 2-Xyd-321178:23 Request TSH (THYROID STIMULATING HORMONE) ([id number])Indication: Diarrhea On: :23 Request METABOLIC PANEL, COMPREHENSIVE (20618)Indication: Diarrhea On: 8-Idw-145918:23 Request CBC, PLATELETS & AUT DIFF ([id number])Indication: Diarrhea On: 5-Sah-073143:23 Request OVA & PARASITE DIR SMEAR ([id number])Indication: Diarrhea On: 17-Qzd-575403:46 Request ANJELICA CULTURE-STOOL (87886)Indication: Diarrhea On: :46 Request OCCULT BLOOD FECES SCREEN (39948)Indication: Diarrhea On: :46 Request LEUKOCYTE COUNT, FECAL (35110)Indication: Diarrhea On: :46 Request C-DIFFICILE, STOOL ([id number])Indication: Diarrhea On: :46 Request OVA & PARASITE DIR SMEAR (26817)Indication: C. difficile diarrhea On: :50 Request OCCULT BLOOD FECES SCREEN (01493)Indication: C. difficile diarrhea On: :50 Request ANJELICA CULTURE-STOOL (03832)Indication: C. difficile diarrhea On: :50 Request LEUKOCYTE COUNT, FECAL (32549)Indication: C. difficile diarrhea On: :50 Request C-DIFFICILE, STOOL (61613)Indication: C. difficile diarrhea On: :49 Request Clostridium difficile Culture (22770)Indication: Diarrhea On: 9-Lyp-482920:52 Request URINALYSIS, W/ MICRO ([id number])Indication: Dysuria On: :56 Request URINE ANJELICA CULTURE-SISSY COL COUNT (77762)Indication: Dysuria On: :54 Request OCCULT BLOOD FECES SCREEN ([id number])Indication: Diarrhea On: :01 Request LEUKOCYTE COUNT, FECAL (65126)Indication: Diarrhea On: :05 Request ANJELICA CULTURE-STOOL (43723)Indication: Diarrhea On: :05 Request Clostridium difficile Toxin A+B, EIA (92265)Indication: Diarrhea On: :05 Request TRILEPTAL-OXCARBAZEPINE [id number] (66884)Indication: Convulsions On: :55 Request PREALBUMIN (78399)Indication: Nutritional assessment On: :45 Request CALCIFIDIOL (94247) VIT D 25Indication: Vitamin D deficiency On: :44 Request TSH ([id number])Indication: Hypertension On: :44 Request METABOLIC PANEL, COMPREHENSIVE (67526)Indication: Hypertension On: :44 Request LIPID PANEL ([id number])Indication: Hypertension On: :44 Request CBC with auto diff ([id number])Indication: Hypertension On: :44 Request Metabolic Panel, Basic (85398)Indication: Abnormal urine On: :03 Request VITAMIN B12 AND FOLATES (79014)Indication: Abnormal urine On: : Request CALCIFEDIOL (63039)Indication: Abnormal urine On: 0-Izs-366408:03 Request Comments: vit d3 URINE ANJELICA CULTURE-SISSY COL COUNT (48551)Indication: Abnormal urine On: :52 Request TRILEPTAL-OXCARBAZEPINE [id number] ([id number])Indication: Cerebral palsy On: :46 Request HCG Qualitative, Serum (06790)Indication: Amenorrhea On: :45 Request PROLACTIN (84654)Indication: Amenorrhea On: :44 Request PREALBUMIN (15084)Indication: Cerebral palsy On: 77-Ukr-144875:43 Request URINALYSIS ([id number])Indication: Fatigue On: :43 Request T3, FREE (TRIDOTHYRONINE) (03251)Indication: Fatigue On: :43 Request T4, FREE (THYROXINE) ([id number])Indication: Fatigue On: :43 Request Folate (59386)Indication: Fatigue On: :42 Request CALCIFIDIOL (84053) VIT D 25Indication: Fatigue On: 04-Fmw-766797:42 Request VITAMIN B-12 (CYANOCOBALAMIN) (09268)Indication: Fatigue On: 06-Nhe-862161:42 Request TSH (91577)Indication: Fatigue On: :42 Request SED RATE ERYTHROCYTE (53667)Indication: Fatigue On: 92-Qmn-165652:42 Request METABOLIC PANEL, COMPREHENSIVE (54806)Indication: Fatigue On: 41-Rnk-635358:42 Request C-REACTIVE PROTEIN (84456)Indication: Fatigue On: 77-Rgv-020651:42 Request CBC (AUTO) ([id number])Indication: Fatigue On: 21-Ikv-257989:42 Request CULTURE,BODY FLUID (38291)Indication: Irregular Menstrual Cycle (Renamed from Irregular bleeding) On: 23-Voy-861588:07 Request Comments: urine Rapid Strep Test, Office (09902)Indication: Pharyngitis, acute On: 38-Xgi-350485:51 Request Urinalysis, Office (88241)Indication: Fatigue On: 45-Vvs-620475:49 Request HgA1C , Office (43142)Indication: Hyperglycemia On: 29-Tto-894893:41 Request CALCIFIDIOL (66962) VIT D 25Indication: Vitamin D deficiency On: :32 Request TRILEPTAL-OXCARBAZEPINE [id number] (69165)Indication: Convulsions On: :31 Request Metabolic Panel, Comprehensive (65272)Indication: Acute renal failure On: :31 Request CBC with manual diff (97835)Indication: Hypertension On: :31 Request CBC with manual diff (05373)Indication: Thrombocytopenia, unspecified On: :35 Request Comments: in citrate tube FIBRINOGEN (12876)Indication: Thrombocytopenia, unspecified On: :35 Request PTT (Activated Partial Thromboplastin Time) (23863)Indication: Thrombocytopenia, unspecified On: :35 Request PT (Prothrobim Time) ([id number])Indication: Thrombocytopenia, unspecified On: :35 Request HEPATITIS C ANTIBODY (24657)Indication: Thrombocytopenia, unspecified On: :35 Request HEPATITIS B CORE ANTBD-IGG/IGM (55696)Indication: Thrombocytopenia, unspecified On: :35 Request HEPATITIS B SURFACE ANTIGEN (46934)Indication: Thrombocytopenia, unspecified On: :35 Request HEPATITIS B SURFACE ANTIBODY (17492)Indication: Thrombocytopenia, unspecified On: :35 Request Methylmalonic acid, serum 62373Icdyiktdqb: Thrombocytopenia, unspecified On: :35 Request Vitamin B-12 (cyanocobalamin) (21385)Indication: Thrombocytopenia, unspecified On: :35 Request Sed Rate Erythrocyte (70837)Indication: Thrombocytopenia, unspecified On: :35 Request Metabolic Panel, Comprehensive (64780)Indication: Thrombocytopenia, unspecified On: :35 Request JENNY (ANTINUCLEAR ANTIBODY) (69763)Indication: Thrombocytopenia, unspecified On: :35 Request CBC with manual diff (14443)Indication: Convulsions On: 05-Rnm-903190:31 Request Clostridium difficile Toxin A+B, EIA (26408)Indication: Diarrhea On: :31 Request OVA & PARASITE DIR SMEAR (14164)Indication: Diarrhea On: :44 Request OCCULT BLOOD FECES SCREEN (00614)Indication: Diarrhea On: :44 Request LEUKOCYTE COUNT, FECAL (04018)Indication: Diarrhea On: :44 Request ANJELICA CULTURE-STOOL ([id number])Indication: Diarrhea On: :44 Request Clostridium difficile Toxin A+B, EIA (74060)Indication: Diarrhea On: 88-Jxh-378792:22 Request C DIFF AMPLIFIED PROBE ([id number])Indication: Diarrhea On: 86-Mph-85254:51 Request Metabolic Panel, Comprehensive (31830)Indication: Acute renal failure On: :08 Request Comments: recheck prior to August. CALCIFIDIOL (23273) VIT D 25Indication: Vitamin D deficiency On: :08 Request Comments: recheck prior to August. TRILEPTAL-OXCARBAZEPINE 125019 (00354)Indication: Convulsions On: 3-Kdx-452238:08 Request Culture, Stool ([id number])Indication: Diarrhea On: :01 Request C DIFF AMPLIFIED PROBE (86815)Indication: Diarrhea On: :01 Request C DIFF AMPLIFIED PROBE (61622)Indication: Diarrhea On: 02-Moe-882191:32 Request C DIFF AMPLIFIED PROBE (81764)Indication: Diarrhea On: 15-Zvs-066196:51 Request URINE ANJELICA CULTURE-IDENTIFICATN (31173)Indication: Backache On: 4-Enn-511287:58 Request URINALYSIS (31305)Indication: Backache On: 3-Kry-537563:58 Request Metabolic Panel, Comprehensive ([id number])Indication: Profound mental retardation (Renamed from IQ under 20) On: 4-Tpd-824353:25 Request Comments: Dr Pino neurologist at [facility] [place] CBC (Auto) ([id number])Indication: Profound mental retardation (Renamed from IQ under 20) On: 8-Nmo-600662:25 Request TRILEPTAL-OXCARBAZEPINE [id number] (99214)Indication: Cerebral palsy On: 0-Nqf-102997:24 Request COLUMN CHROMATOGRAPHY, SISSY, SINGLE ([id number])Indication: Convulsions On: 31-Lfx-056927:54 Request Comments: trileptal [id number] Clostridium difficile Toxin A+B, EIA (85128)Indication: Diarrhea On: 08-Fdd-283596:26 Request CBC (Auto) ([id number])Indication: Convulsions On: 48-Tay-038687:25 Request Metabolic Panel, Comprehensive ([id number])Indication: Convulsions On: 64-Mnx-862194:24 Request ANJELICA CULTURE-OTHER (46944)Indication: Pharyngitis, acute On: 4-Uiy-893889:44 Request C.Difficile, Stool (29965)Indication: Diarrhea On: 00-Ats-304276:48 Request ANJELICA CULTURE-STOOL (32523)Indication: Diarrhea On: :55 Request C.Difficile, Stool (21668)Indication: Diarrhea On: :54 Request LEUKOCYTE COUNT, FECAL (07752)Indication: Diarrhea On: :27 Request OVA & PARASITE DIR SMEAR (17720)Indication: Diarrhea On: :27 Request C.Difficile, Stool (52427)Indication: Diarrhea On: :27 Request ANJELICA CULTURE-STOOL (19682)Indication: Diarrhea On: :27 Request TSH (23493)Indication: Unspecified bacterial pneumonia On: 7-Ztd-352588:48 Request CBC, Platelets & Auto Diff (57553)Indication: Unspecified bacterial pneumonia On: :48 Request Magnesium (38987)Indication: Unspecified bacterial pneumonia On: 9-Hip-073339:48 Request Phosphorus (65970)Indication: Unspecified bacterial pneumonia On: 4-Ldw-357422:48 Request Metabolic Panel, Basic (04125)Indication: Unspecified bacterial pneumonia On: 4-Two-622513:48 Request Planned Encounters Medical; 4 Month FU - On: 10-Oct-2018 13:15 [facility] Lara Sandra Lara MCCULLOUGHSandra Planned Procedures Flu Vaccine (Quadrivalent) On: 06-Jun-2018 Intent 73818Ms: Lara MCCULLOUGHSandra Comments: Lot #[id number]-L dltd, IMDose prefilled syringegiven by:MARICARMEN Santana reviewed and ABN signed Sandra Bermudez DO Flu Vaccine (Quadrivalent) On: 02-Aug-2017 Intent 50659Sw: Lara MCCULLOUGHSandra Comments: Lot:[id number]:12/29Amt:0.5mlRoute:IMSite: Rt DltdGiven By: ALFREDITO James signed Sandra Bermudez DO Flu Vaccine (Quadrivalent) On: 14-May-2016 Intent 04270Gn: Roe Baxter MD Comments: Lot #[id number]-L dltd, IMDose prefilled syringegiven by:ALFREDITO Goldberg and ABN signed ADMINISTRATION OF INFLUENZA On: 02-Aug-2015 Intent VIRUS VACCINE (G0008)By: Linda Houston MD Flu Vaccine (Quadrivalent) On: 02-Aug-2015 Intent 67002Ch: Linda Houston MD Comments: Lot #:[id number] date:Amount given:0.5mlRoute: IMSite given:L DltdGiven by: Jessica BASSETT and ABN signed Quad Flu ELECTROCARDIOGRAM, COMPLETE On: 21-Mar-2015 Intent (ECG) (78197)By: Linda Houston MD CT - Brain/Head (IV Contrast On: 29-Nov-2014 Intent Needed)By: Linda Houston MD ADMINISTRATION OF INFLUENZA On: 06-Aug-2014 Intent VIRUS VACCINE (G0008)By: TIMBO Villegas Flu Vaccine (Quadrivalent) On: 06-Aug-2014 Intent 88979Fn: TIMBO Villegas Comments: Lot #:[id number] date:mount given:0.5mlRoute: IM Site given:Given by: to be given per patient home health nurse CATHETERIZE FOR URINE SPEC On: 09-Mar-2014 Intent (P9612)By: Linda Houston MD Comments: pls use pediatric cath- and fax results to [phone] SPECIMEN HNDLNG/TRNSPRT, OFFC > On: 09-Mar-2014 Intent LAB (68035)By: Linda Houston MD IMMUNIZ ADMNIN, 1 VAC, On: 28-Jul-2013 Intent SNGL/COMBO (85259)By: Archie BOLDEN, Comments: Lot #[id number] to nurse for admin Jessica Stack FLU VAC, SPLIT, >3 YEARS, On: 28-Jul-2013 Intent INTRAMUSC (69802)By: Jessica Almanza LPN SPECIMEN HNDLNG/TRNSPRT, OFFC > On: 18-May-2013 Intent LAB (12554)By: Linda Houston MD Eprescribed prescriptions On: 18-May-2013 Intent (G8553)By: Jessica Almanza LPN FLU VAC, SPLIT, >3 YEARS, On: 23-Jun-2011 Intent INTRAMUSC (77058)By: Archie BOLDEN, Comments: Lot #[id number]-L arm, IMDose prefilledgiven by:Jessica Stack IMMUNIZ ADMNIN, 1 VAC, On: 23-Jun-2011 Intent SNGL/COMBO (11813)By: Jessica Almanza LPN Instructions Name Dates Details [...] for the procedure will be Dr Beck [facility]. The chief complaint is teeth cleanin [...]
--- OUTSIDE RECORDS SUMMARY | 2018-10-08 11:27 | XMS RPT_ITS | Continuity of Care Document ---
:1990 Author Organization [facility] Address [address] [place] [address] Phone Care Team Providers Name Role Phone [...] Propionate 50 MCG/ACT Nasal Suspension 2 (two) Aspers(s) Aspers(s) each nostril qd for 90 days Quantity: [...] Houston MD Start : 20-Jan-2016 Active Nyamyc 962807 UNIT/GM External Powder uad Powder to affected area(s) bid and prn for 0 days Quantity: 15 {Bottle} Refills: 6 Ordered:19-Nov-2017 Karin Bermudez DO, DO, Kathleen Start : 19-Nov-2017 End : 17-Nov-2013 Active Nystatin 051350 UNIT/GM External Cream uad Cream to affected area(s) bid prn for 7 days Quantity: 1 {Bottle} Refills: 3 Ordered:03-Jun-2018 Karin Bermudez DO, DO, Kathleen Start : 03-Jun-2018 Active Nystatin 754594 UNIT/ML Mouth/Throat Suspension 5 ml ml 5 times day for 10 days Quantity: 250 {Milliliter} Refills: 9 Ordered:03-Apr-2016 Jessica Almanza LPN Start : 03-Apr-2016 Active Nystatin Powder 1 Powder Powder tid for 10 days Quantity: 1 {Bottle} Refills: 3 Ordered:28-Jun-2017 Karin Bermudez DO, DO, Kathleen Start : 28-Jun-2017 Active Pen Shonto 31G X 5 MM Miscellaneous 1 (one) [...] for 0 days Refills: 0 Ordered:23-Jun-2011 Long OUTFITTER CABIN, Jessica L End : 23-Jun-2011 Inactive LevoFLOXacin [...] for 0 days Refills: 0 Ordered:23-Jun-2011 Long OUTFITTER CABIN, Jessica L End : 23-Jun-2011 Inactive MUCINEX FOR KIDS, 100MG/5ML (Oral Liquid) Liquid 15 cc tid 14 days for 0 days Refills: 0 Ordered:23-Jun-2011 Long OUTFITTER CABIN, Jessica L Start : 13-Jun-2009 End : [...] nostril qd for 0 days Quantity: 1 {Aspers} Refills: 3 Ordered:09-Apr-2015 Linda Houston MD Start : 09-Apr-2015 End : 20-Jan-2016 Discontinued Comments:This order discontinued per [employer]. MUCOMYST, 20% (Inhalation Solution) 1 bid/prn for 0 days Refills: 0 Ordered:23-Jun-2011 Long OUTFITTER CABIN, Jessica L End : 23-Jun-2011 Discontinued Comments:This order discontinued per [employer]. VYTONE, 1-1% (External Cream) Cream bid for 0 days Quantity: 1 {Cream} Refills: 3 Ordered:13-Jun-2009 Long OUTFITTER CABIN, Jessica L Start : 13-Jun-2009 End : [...] Comments: See Note; NOTES: [facility] [address] [place] [address] OFFICE VISIT Date of Service: 05/25/18 MR#: [id number] Acct: [id number] Name: MIGUEL MANDY Rickey Rep #: [id number] : 1990 Provider: Lawrence Weiner MD Age/Sex: 28/F Location: [facility].PM[facility] Status: Signed Assessment AND Plan Problems 1. [...] Department Summary Result: Comments: See Note; NOTES: [facility] Medical Records Department [address] [place] [address] Emergency Department Summary 01/24/18 1645 MR#: [id number] Acct: [id number] Name: MANDY MONTERO Rep #: [id number] : 1990 27 From: Stephan Hughse MD PCP: Sandra Bermudez DO Status: REG [...] Discharged to home Impression: 1. Cellulitis left [facility] 2. Dysuria of unknown etiology 3. History of MRDD 4. History of Propulsid 5. History of chronic respiratory failure on ventilator This note was generated with writewithation software. It m ay contain incorrect words, [...] Instructions: Mandy prescription was electronically transmitted to [facility], your [facility] What to do if you have Problems For any increased pain, shortness of breath, bleeding, nausea or vomiting, chest pain, or any unexpected problems, contact your Primary Care Provider. Call [facility] ([phone]) or report to the closest Emergency Room. Call 911 if necessary. 01/24/18 8823 <Electronically signed by Stephan Hughes MD> Date Stephan Hughes MD Cosigner Signature (If Indicated): Date CC: Sandra Lara DO 10-Dec-2017 Pulmonary Visit Report Result: Comments: See Note; NOTES: [facility] [place] [address] [place] [address] OFFICE VISIT Date of Service: 12/09/17 MR#: [id number] Acct: [id number] Name: MANDY MONTERO Rep #: [id number] : 1990 Provider: Lawrence Weiner MD Age/Sex: 27/F Location: [facility] Status: Signed Assessment AND Plan 1. [...] Comments: See Note; NOTES: [facility] [place] [address] [place] [address] OFFICE VISIT Date of Service: 09/02/17 MR#: [id number] Acct: [id number] Name: MANDY MONTERO Rep #: [id number] : 1990 Provider: Lawrence Weiner MD Age/Sex: 27/F Location: [facility].PMW Status: Signed Assessment AND Plan 1. Spastic [...] mg (10 mL) PO QDAY PRN allergy valjssepB24 .2 Ok to give through PEG Follow Up 3 Months ([facility]) HPI 6 M FU: Chief Complaint: Increased secretions Details: Patient is a 27-year-old female who presents for evaluation secondary to incre ased secretions. Since last visit, patient's mother denies any ER visits, hospitalizations or prednisone burst. Patient does suffer from cerebral palsy and is unable to answer for herself. Patient pres ents on a cot with her mother and healthcare coding assistant. Family reports the patient has had [...] Department Summary Result: Comments: See Note; NOTES: [facility] Medical Records Department [address] [place] [address] Emergency Department Summary MR#: [id number] Acct: [id number] Name: MANDY MONTERO Rep #: [id number] : 1990 26 From: Flip Jessica MD [...] . Flip Jessica MD T: NTS JOB: [id number] 03/10/17805 <Electronically signed by Flip Jessica MD> Date Flip Jessica MD Cosigner Signat ure (If Indicated): Date CC: Sandra Bermudez DO Date Dictated: 03/06/171722 Date Transcribed: 03/06/171722 World Travel Counselor: Signed 06-Mar-2017 Discharge Instruction Result: Comments: See Note; NOTES: [facility] Medical Records Department [address] [place] [address] Discharge Instruction 03/06/171719 MR#: [id number] Acct: [id number] Name: ROMELIA MONTERO Rep #: [id number] : 1990 26 From: Flip Jessica MD [...] your Primary Care Provider. Call [facility] ([phone]) or report to the closest Emergency Room. Call 911 if necessary. 03/06/171719 <Electronically signed by Flip Jessica MD> Date Flip Jessica MD Cosigner Signature (If Indicated): Date CC: Sandra Bermudez DO 06-Mar-2017 Chest 1 View Result: Comments: See Note; NOTES: [facility] Imaging Services [address] [place] [address] Verdana 4d Chest 1 View MR#: [id number] Acct: [id number] Name: MANDY MONTERO Rep #: [id number] : 1990 F 26 From: Merritt Bolton MD PCP: Sandra Bermudez DO Status: REG ER Study: Chest 1 View Date of Exam: 03/06/17 Exam# [id number] Ordering Dr: Flpi Jessica MD STUDY: X-RAY CHEST YULIANA SON [...] CC: Flip Jessica MD; Sandra Bermudez DO World Travel Counselor: Signed 06-Mar-2017 Thoracic Spine 3 Views Result: Comments: See Note; NOTES: [facility] Imaging Services [address] [place] [address] Verdana 4d Thoracic Spine 3 Views MR#: [id number] Acct: [id number] Name: MANDY MONTERO Rep # : [id number] : 1990 F 26 From: Merritt Bolton MD PCP: Sandra Bermudez DO Status: REG ER Study: Thoracic Spine 3 Views Date of Exam: 03/06/17 Exam# [id number] Ordering Dr: Flip Jessica MD [facility] DY: X-RAY - THORACIC SPINE REASON [...] CC: Flip Jessica MD; Sandra Bermudez DO World Travel Counselor: Signed 10-Sep-2016 Chest 1 View (Portable) Result: Comments: See Note; NOTES: [facility] Imaging Services [address] [place] [address] Verdana 4d Chest 1 View (Portable) MR#: [id number] Acct: [id number] Name: MANDY MONTERO Rep #: [id number] : 1990 F 26 From: Mandy Chávez MD PCP: Sandra Bermudez DO Status: PRE ER Study: Chest 1 View (Portable) Date of Exam: 09/10/16 Exam# [id number] Ordering Dr: Vinnie Sher MD STUDY: X-RAY [...] MD at 23:49 EST , Service support [phone], CC: Linden Sher MD; Sandra Bermudez DO World Travel Counselor: Signed 12-Mar-2016 Emergency Department Summary Result: Comments: See Note; NOTES: [facility] Medical Records Department [address] [place] [address] Emergency Department Summary MR#: [id number] Acct: [id number] Name: MANDY MONTERO Rep #: [id number] : 1990 25 From: Joseph Mcgee MD [...] Baxter Date Dictated: 02/29/16112 Date Transcribed: 02/29/16112 World Travel Counselor: Signed 28-Feb-2016 Discharge Instruction Result: Comments: See Note; NOTES: [facility] Medical Records Department [address] [place] [address] [place] [address] Discharge Instruction 02/28/161925 MR#: [id number] Acct: [id number] Name: MIGUELMANDY A Rep #: [id number] : 1990 25 From: Joseph Mcgee MD [...] problems, contact your doctor. Call [facility] ([phone]) or report to the closest Emergency Room. Call 911 if necessary. 224 <Electronically signed by Joseph Mcgee MD> Date Joseph Mcgee MD Cosigner Signature (If Indicated): Date ___ CC: Roe Baxter 28-Feb-2016 Abdomen/Pelvis without Cont Result: Comments: See Note; NOTES: [facility] Imaging Services [address] [place] [address] Verdana 4d Abdomen/Pelvis without Cont MR#: [id number] Acct: [id number] Name: MANDY MONTERO Rep #: [id number] : 1990 F 25 From: Seymour Villagomez MD PCP: Roe Baxter Status: REG ER Study: Abdomen/Pelvis without Cont Date of Exam: 02/28/16 Exam# [id number] Ordering Dr: Joseph Patton MD STUDY: CT [...] MD at 18:47 EDT , Service support [phone], CC: Roe Baxter; Joseph Mcgee MD World Travel Counselor: Signed 25-Feb-2016 Emergency Department Summary Result: Comments: See Note; NOTES: [facility] Medical Records Department [address] [place] [address] Emergency Department Summary MR#: [id number] Acct: [id number] Name: MANDY MONTERO Rep #: [id number] : 1990 25 From: Tomás Willis MD [...] C: Roe Baxter MD T: JENNIFER JOB: [id number] 02/25/16 1517 <Electronically signed by Tomás Willis MD> Date Tomás Willis MD Cosigner Signature (If Indicated): Date CC: Roe Baxter Date Dictated: 02/23/16 1521 Date Transcribed: 02/23/161520 World Travel Counselor: Signed 23-Feb-2016 Discharge Instruction Result: Comments: See Note; NOTES: [facility] Medical Records Department [address] [place] [address] Discharge Instruction 02/23/16 1514 MR#: [id number] Acct: [id number] Name: MANDY MONTERO Rep #: [id number] : 1990 25 From: Tomás Willis MD [...] problems, contact your doctor. Call [facility] ([phone]) or report to the closest Emergency Room. Call 911 if necessary. 6 1516 <Electronically signed by Tomás Willis MD> Date Tomás Willis MD Cosigner Signature (If Indicated): Date CC: Roe Baxter 28-Jan-2016 Chest 1 View (Portable) Result: Comments: See Note; NOTES: [facility] Imaging Services [address] [place] [address] Verdana 4d Chest 1 View (Portable) MR#: [id number] Acct: [id number] Name: MANDY ACUNA Rep #: [id number] : 1990 F 25 From: Abdirahman Awad MD PCP: Linda Houston MD Status: PRE ER Study: Chest 1 View (Portable) Date of Exam: 01/28/16 Exam# [id number] Ordering Dr: Edita Willis MD STUDY: X-RAY [...] MD at 22:53 EDT , Service support [phone], RAD/Chest 1 View (Portable) IMPRESSION: Retrocar diac density in left lower lobe possibly representing atelectasis or infiltrate. Recommend lateral view for further assessment Electronically Signed: Abdirahman Awad MD at 22:53 EDT , Service support [phone], CC: Linda Houston MD; Tomás Willis MD World Travel Counselor: Signed Family History Unknown Family Member Name [...] Arm; Cuff Size: Standard Weight 87 lb 3-Zld-368514:54 Pulse 86 /min Comments: Pattern: Regular Respiration Rate 16 /min Comments: Pattern: Unlabored BP Systolic 140 mm[Hg] Comments: Patient Position: Sitting; Cuff Location: Left Arm; Cuff Size: Standard BP Diastolic 110 mm[Hg] Comments: Patient Position: Sitting; Cuff Location: Left Arm; Cuff Size: Standard Weight 80 lb Height 0 in Head Circumference 0.00 cm Results Date Description Value Details :37 TSH (86367) Comments: PATIENT NOT FASTINGPERFORMED BY: [employer] Center[facility]svreu[address] [place] [address] [id number] BY: [place] [id number] TSH 1.030 {uIU/mL} (Normal) Range: 0.450-4.500 24-Vqm-764647:37 T4, FREE (THYROXINE) Comments: PATIENT NOT FASTINGPERFORMED BY: [employer] [id number] BY: [employer] [id number] (89621) T4,Free(Direct) 0.84 ng/dL (Normal) Range: 0.82-1.77 44-Zhj-440390:37 T3, FREE (TRIDOTHYRONINE) Comments: PATIENT NOT FASTINGPERFORMED BY: [employer] [id number] BY: [employer] [id number] (45018) Triiodothyronine (T3), Free 2.6 pg/mL (Normal) Range: 2.0-4.4 62-Zuw-280176:37 CALCIFIDIOL (00528) VIT D Comments: PATIENT NOT FASTINGPERFORMED BY: [employer]49 Knight Streetblin [place] [id number] BY: [employer] [id number] 25 Vitamin D, 25-Hydroxy 42.6 ng/mL (Normal) Range: 30.0-100.0 Comments: Vitamin D deficiency has been defined by the [place] of[place]icine and an Endocrine Society practice guideline as alevel of serum 25-OH vitamin D less than 20 ng/mL (1,2).The Endocrine Society went on to further define vitamin Dinsufficiency as a level between 21 and 29 ng/mL (2).1. IOM ([place] of Medicine). 2010. Dietary reference intakes for calcium and D. [place]: The National Academies Press.2. Gabbi MF, Singh MCKEON, Pollo JOSEPH, et al. Evaluation, treatment, and prevention of vitamin D deficiency: an Endocrine Society clinical practice guideline. JCEM. 2010; 96(7):1911-30. 04-Kod-867875:37 TRILEPTAL-OXCARBAZEPINE 267464 Comments: send results to dr delgado too; PATIENT NOT FASTINGPERFORMED BY: [employer]370 [facility] [id number] BY: [employer] [id number] (95877) Oxcarbazepine 49 ug/mL (Abnormal) Range: 10-35 Comments: Detection Limit = 1 13-End-176546:37 CBC with auto diff Comments: send results to dr sandy storm; PATIENT NOT FASTINGPERFORMED BY: [employer] Acqlxw3218 [facility] [id number] BY: [employer] [id number] (11716) Immature Grans (Abs) 0.0 {x10E3/uL} (Normal) Range: [...] 3.77-5.28 WBC 6.3 {x10E3/uL} (Normal) Range: 3.4-10.8 77-Awj-564541:37 METABOLIC PANEL, Comments: send results to dr delgado too; PATIENT NOT FASTINGPERFORMED BY: [facility] Qbvdpc5096 [facility] [id number] BY: [facility] [address] [id number] [facility] ([address]) ALT (SGPT) 38 [iU]/L (Abnormal) Range: 0-32 [...] 6-20 Glucose 237 mg/dL (Abnormal) Range: 65-99 87-Dda-509694:37 HGB A1C (62531) Comments: PATIENT NOT FASTINGPERFORMED BY: CB [facility] Kcdgty4397 [facility] [id number] BY: BN [facility] [address] [id number] Hemoglobin A1c 6.3 % (Abnormal) Range: 4.8-5.6 Comments: . Prediabetes: 5.7 - 6.4 Diabetes: >6.4 Glycemic control for adults with diabetes: <7.0 92-Znt-854146:00 Urinalysis, Complete Comments: How was Urine Obtained? [facility] [address] [place], [place], [address] MUCUS, URINE 0 SEEN {/hpf} (Normal) BACTERIA [...] (Abnormal) CLARITY Clear (Normal) COLOR Yellow (Normal) 61-Asb-195825:50 Basic Metabolic Profile (BMP) Comments: [facility] [address] [place], [place], [address] GAP 8 (Normal) Range: 5-15 CO2 28.0 [...] A.D.A. criteria.Please note revised GLUCOSE reference range hfqupijaq05/02/2018. 21-Yvl-396998:50 CBC W/Diff, Automated Comments: [facility] [address] [place], [address] Absolute Lymph 1.52 {X10_3/ul} (Normal) [...] 4.2-5.4 WBC 6.0 K/mm3 (Normal) Range: 4.4-11.0 03-Sia-93536:00 Lactic Acid Comments: Yes/No query for Sepsis Lactate Rule [facility] [address] [place], [place], [address] LACTIC ACID 2.0 mmol/L (Normal) Range: 0.4-2.0 Comments: Critical Result(s) Called at: 18:33:30 01/24/2018 by:Yohana Cabreradignity health [facility] 21-Eur-798367:39 TSH (55196) Comments: PATIENT NOT FASTINGPERFORMED BY: CB [facility] Gfhviz7911 [facility] [id number] BY: BN [facility] [address] [id number] TSH 1.150 {uIU/mL} (Normal) Range: 0.450-4.500 16-Akp-967891:39 METABOLIC PANEL, Comments: PATIENT NOT FASTINGPERFORMED BY: [employer] CenterFgyzzg4132 [facility] [id number] BY: [employer] [id number] COMPREHENSIVE (54874) ALT (SGPT) 18 [iU]/L (Normal) Range: 0-32 [...] Glucose, Serum 138 mg/dL (Abnormal) Range: 65-99 53-Qii-746303:39 CBC W/AUTO DIFF WBC Comments: PATIENT NOT FASTINGPERFORMED BY: [employer] CenterFmjbwu3090 [facility] [id number] BY: [employer] [id number] (88472) Immature Grans (Abs) 0.0 {x10E3/uL} (Normal) Range: [...] 3.77-5.28 WBC 6.6 {x10E3/uL} (Normal) Range: 3.4-10.8 81-Fet-275296:39 TRILEPTAL-OXCARBAZEPINE 691747 Comments: PATIENT NOT FASTINGPERFORMED BY: CB [facility] Jgzkgi3504 [facility] [id number] BY: BN [facility] [address] [id number] (92036) Oxcarbazepine 28 ug/mL (Normal) Range: 10-35 Comments: Detection Limit = 1 11-Gvn-779624:39 CALCIFIDIOL (91754) VIT D Comments: PATIENT NOT FASTINGPERFORMED BY: [employer] Xptnpf0686 [facility] [id number] BY: [employer] [id number] 25 Vitamin D, 25-Hydroxy 56.3 ng/mL (Normal) Range: 30.0-100.0 Comments: Vitamin D deficiency has been defined by the [place] ofMedicine and an Endocrine Society practice guideline as alevel of serum 25-OH vitamin D less than 20 ng/mL (1,2).The Endocrine Society went on to further define vitamin Dinsufficiency as a level between 21 and 29 ng/mL (2).1. IOM ([place] of Medicine). 2010. Dietary reference intakes for calcium and D. [place]: The National Academies Press.2. Gabbi MF, Singh [place], Pollo JOSEPH, et al. Evaluation, treatment, and prevention of vitamin D deficiency: an Endocrine Society clinical practice guideline. JCEM. 2010; 96(7):1911-30. 15-Yrm-728448:39 HGB A1C (37643) Comments: PATIENT NOT FASTINGPERFORMED BY: [employer] Baztsc5558 [facility] [id number] BY: [employer] [id number] Hemoglobin A1c 5.7 % (Abnormal) Range: 4.8-5.6 Comments: . Pre-diabetes: 5.7 - 6.4 Diabetes: >6.4 Glycemic control for adults with diabetes: <7.0 20-Apr-20174:11 THROAT CULTURE (59676) Comments: PATIENT NOT FASTINGPERFORMED BY: [employer] Pakbii8399 [facility] [id number] Information: SRC:TH Result 1 RRF (Normal) Comments: Routine respiratory jasper Upper Respiratory Culture Final report (Normal) 46-Bsu-698585:35 CBC W/Diff, Automated Comments: [facility] [address] [place], [address] Absolute Lymph 1.23 {X10_3/ul} (Normal) Range: 0.83-4.51 [...] 4.2-5.4 WBC 4.9 K/mm3 (Normal) Range: 4.4-11.0 87-Fbq-598077:35 CRP Comments: [facility] [address]xj[address] [facility] [place], [address] C-REACTIVE PROT < 2.90 mg/L (Normal) Range: 0.0-3.0 Comments: C-Reactive Protein (CRP) provides useful information for thediagnosis, therapy and monitoring of inflammatory processesand associated diseases. For the evaluation of Relative Riskfor Cardiovascular Dise ase, a High Sensitivity CRP (HSCRP)should be ordered. 7-Jio-152659:15 Culture, Nose Comments: [facility] [address] [facility] [place], [address] CUN See Note (Normal) Comments: Comments: THICK [...] $ <=20 S(NF) indicates non-formulary drug at [facility]. Ap proval by Infectious Disease Specialist required before non-formulary drugs may be ordered and/or dispensed. Pseudomonas aeroginosa: REACTION Cefepime $ <=1 S Ceftazidime *NF 2 S Ciprofloxacin $ 2 I Gentamicin $ <=1 S Imipenem *NF 1 S Levofloxacin $ 4 I Piperacillin/Tazobactam $$ 8 S Tobramycin $ <=1 S(NF) rocky cates non-formulary drug at [facility]. Approval by Infectious Disease Specialist required before non-formulary drugs may be ordered and/or dispensed. 34-Wwg-033472:34 LIPID PANEL (39015) Comments: PATIENT NOT FASTINGPERFORMED BY: [facility] Fwjbyq9860 [facility] [id number] BY: [facility] [address] [id number] LDL/HDL Ratio 1.5 {ratio_units} (Normal) Range: 0.0-3.2 Comments: LDL/HDL Ratio Men Women 1/2 Avg.Risk 1.0 1.5 Av g.Risk 3.6 3.2 2X Avg.Risk 6.2 5.0 3X Avg.Risk 8.0 6.1 LDL Cholesterol Calc 76 mg/dL (Normal) Range: 0-99 VLDL Cholesterol Dirk 17 mg/dL (Normal) Range: 5-40 HDL Cholesterol 50 mg/dL (Normal) Triglycerides 84 mg/dL (Normal) Range: 0-149 Cholesterol, Total 143 mg/dL (Normal) Range: 100-199 35-Lxr-257353:34 METABOLIC PANEL, Comments: PATIENT NOT FASTINGPERFORMED BY: [employer]70 [facility] [id number] BY: [employer] [id number] [facility] ([address]67) ALT (SGPT) 20 [iU]/L (Normal) Range: 0-32 [...] Glucose, Serum 137 mg/dL (Abnormal) Range: 65-99 25-Axm-278892:34 CBC with auto diff Comments: PATIENT NOT FASTINGPERFORMED BY: [employer]6370 [facility] [id number] BY: [facility] [address] [id number] (31725) Immature Grans (Abs) 0.0 {x10E3/uL} (Normal) Range: [...] 3.77-5.28 WBC 4.5 {x10E3/uL} (Normal) Range: 3.4-10.8 24-Bor-813385:34 TRILEPTAL-OXCARBAZEPINE 504568 Comments: PATIENT NOT FASTINGPERFORMED BY: [facility] Clfufj0571 [facility] [id number] BY: [facility] [address] [id number] (30356) Oxcarbazepine 23 ug/mL (Normal) Range: 10-35 Comments: Detection Limit = 1 01-Ybj-303704:34 HGB A1C (94120) Comments: PATIENT NOT FASTINGPERFORMED BY: [facility] Zwnrtd3469 [facility] [id number] BY: [facility] Rncbyjmejw5035 [facility] [id number] Hemoglobin A1c 6.1 % (Abnormal) Range: 4.8-5.6 Comments: . Pre-diabetes: 5.7 - 6.4 Diabetes: >6.4 Glycemic control for adults with diabetes: <7.0 09-Yut-723749:34 CALCIFIDIOL (82787) VIT D Comments: PATIENT NOT FASTINGPERFORMED BY: [facility] Wdcmef7973 [facility] [id number] BY: [facility] Ozfsieshkw5288 [facility] [id number] 25 Vitamin D, 25-Hydroxy 49.1 ng/mL (Normal) Range: 30.0-100.0 Comments: Vitamin D deficiency has been defined by the [place] ofMedicine and an Endocrine Society practice guideline as alevel of serum 25-OH vitamin D less than 20 ng/mL (1,2).The Endocrine Society went on to further define vitamin Dinsufficiency as a level between 21 and 29 ng/mL (2).1. IOM ([place] of Medicine). 2010. Dietary reference intakes for calcium and D. [place]: The National Academies Press.2. Gabbi MF, Singh NC, Pollo JOSEPH, et al. Evaluation, treatment, and prevention of vitamin D deficiency: an Endocrine Society clinical practice guideline. JCEM. 2010; 96(7):1911-30. 19-Ntp-908177:15 Culture, Throat Comments: [facility] [address] [place], [place], [address] CUT See Note (Normal) Comments: Culture, ThroatMixed [...] $ <=20 S(NF) indicates non-formulary drug at [facility]. Approval by Infec tious Disease Specialist required before non-formulary drugs may be ordered and/or dispensed. 28-Rqy-09817:30 Culture, Wound Comments: [facility] [address] [place], [address] CUW See Note (Normal) Comments: Comments: COLLECTED FROM TRACHEA STOMA/DX THICK SPUTUMGram StainGram Stain No organisms seen Wound CultureNo Haemophilus, Streptococcus pneumoniae, beta-hemolytic Streptococcus or Staphylococcus aureu s isolated. Copy of report sent to Infection Control Printer MS#[id number] 12/09/16 4287 DCANNON. ORGANISM 1: Serratia marcescensAmount Growth 1+ [...] $ <=20 S(NF) indicates non-formulary drug at [facility]. Approval by Infectious Disease Specialist required before non-formulary drugs may be ordered and/or dispensed. Pseudomonas aeroginosa: REACTION Cefepime $ <=1 S Ceftazidime *NF <=1 S Ciprofloxacin $ 0.5 S Gentamicin $ <=1 S Imipenem *NF 1 S Levofloxacin $ 1 S Piperacillin/Tazobactam $$ 8 S Tobramycin $ <=1 S(NF) indicates non-formulary drug at [facility]. Approval b y Infectious Disease Specialist required before non-formulary drugs may be ordered and/or dispensed. :37 Base Excess ISTAT Comments: [place] [address] [place] [address] BE ISTAT 6 mmol/L (Abnormal) :37 Bicarbonate ISTAT Comments: [address] [address] [place] [address] HCO3 ISTAT 30 mmol/L (Abnormal) Range: 22-26 Comments: Site = R BrachialAllens Test = NAMode = A-CDevice = VentFIO2 = 40Results To = ED MDTime Given = 2350MV = 4.5VT = 250RR = 21PEEP = 7 :37 Blood Gas Specimen Type Comments: [place] [address] [place], [place] [address] BLD GAS TYPE ART (Normal) 55-Ufq-070574:37 pCO2 - ISTAT 40.0 {mmHg} (Normal) Comments: [place] [address] [place] [address] Range: 35-45 57-Mlm-902475:37 pH - I-STAT 7.48 (Abnormal) Comments: [address] [address] [place] [address] Range: 7.35-7.45 87-Ilf-925528:37 PO2 I-STAT 65 {mmHG} (Abnormal) Comments: [place] [address] [place] [address] Range: 75-100 32-Xnn-764091:37 SO2 ISTAT 94 % (Abnormal) Comments: [place] [address] [place] [address] Range: 95-99 31-Qnb-431244:37 Total Carbon Dioxide ISTAT Comments: [facility] LaboratoryPoint of [address]kgk[address] [place] [place] [address] TOTAL CO2 ISTAT 31 mmol/L (Normal) 46-Dno-563629:55 Basic Metabolic Profile (BMP) Comments: [facility] Lcthrxexam56[address] [place], [address] GAP 5 (Normal) Range: 5-15 CO2 [...] 7-18 GLU 79 mg/dL (Normal) Range: 70-110 13-Adz-808551:55 CBC W/Diff, Automated Comments: [facility] Qtsnwrgwcd87[address] [place], [address] Absolute Lymph 1.51 {X10_3/ul} (Normal) Range: [...] 4.2-5.4 WBC 4.6 K/mm3 (Normal) Range: 4.4-11.0 4-Rvk-830893:52 Anaerobic and Aerobic Comments: PERFORMED BY: [facility] CenterDargwy7442 [facility] [id number] Information: buttock SRC:WO Culture Antimicrobial MIHEAD (Normal) [...] 72 hours. Anaerobic Culture Final report (Normal) 3-Qaa-818252:39 CBC With Differential/Platelet Comments: PERFORMED BY: CB [facility] Mrqben4992 [facility] [id number] BY: BN [facility] [address] [id number] Immature Grans (Abs) 0.0 {x10E3/uL} (Normal) Range: [...] :39 Comp. Metabolic Panel Comments: PERFORMED BY: [employer]6370 [facility] [id number] BY: [employer] [id number] (14) ALT (SGPT) 27 [iU]/L (Normal) Range: [...] 65-99 :39 Oxcarbazepine (Trileptal),S Comments: PERFORMED BY: [employer] [facility] [place] [id number] BY: [address] [id number] Oxcarbazepine 24 ug/mL (Normal) Range: 10-35 Comments: Detection Limit = 1 :39 TSH 1.640 {uIU/mL} Comments: PERFORMED BY: [place] [address]26[address] [facility] [id number] BY: [address] [id number] (Normal) Range: 0.450-4.500 :39 Vitamin B12 and Folate Comments: PERFORMED BY: [address] [id number] BY: [address] [id number] Folate (Folic Acid), 8.0 ng/mL (Normal) Comments: A serum folate concentration of less than 3.1 ng/mL isconsidered to represent clinical deficiency. Serum Vitamin B12 1048 pg/mL Range: 211-946 (Abnormal) : Vitamin D, 40.7 ng/mL (Normal) Comments: PERFORMED BY: [place] [address]2670 [facility] [id number] BY: [address] [id number] 39 25-Hydroxy Range: 30.0-100.0 Comments: Vitamin D deficiency has been defined by the [place] ofMedicine and an Endocrine Society practice guideline as alevel of serum 25-OH vitamin D less than 20 ng/mL (1,2).The Endocrine Society went on to further define vitamin Dinsufficiency as a level between 21 and 29 ng/mL (2).1. IOM ([place] of Medicine). 2010. Dietary reference intakes for calcium and D. [place]: The National Academies Press.2. Gabbi MF, Singh NC, Pollo JOSEPH, et al. Evaluation, treatment, and prevention of vitamin D deficiency: an Endocrine Society clinical practice guideline. JCEM. 2010; 96(7):1911-30. 93-Ice-088178:00 Urinalysis, Complete Comments: Order Date: 02/28/16How was Urine Obtained? [facility] Wikygchkpo[address] [place], [place], [id number] MUCUS, URINE RARE {/hpf} (Normal) BACTERIA 0 [...] CLARITY Sl. Cloudy (Normal) COLOR Yellow (Normal) 89-Yxs-258358:00 Basic Metabolic Profile (BMP) Comments: [facility] Otthnoelxj[address] [place], [place], [address] GAP 8 (Normal) Range: 5-15 CO2 26.0 [...] 7-18 GLU 84 mg/dL (Normal) Range: 70-110 58-Ige-781390:00 CBC W/Diff, Automated Comments: [facility] Uodetskkvk[address] [place], [place], [address] Absolute Lymph 1.11 {X10_3/ul} (Normal) Range: 0.83-4.51 [...] 4.2-5.4 WBC 5.5 K/mm3 (Normal) Range: 4.4-11.0 38-Yle-584621:00 Lactic Acid Comments: [facility] Urdofoorew[address] [place], [address] LACTIC ACID 1.6 mmol/L (Normal) Range: 0.4-2.0 20-Fzp-612057:00 Lipase Comments: [address] [place], [address] LIPASE 177 U/L (Normal) Range: 73-393 55-Vko-625261:00 Liver Profile Comments: [address] [place], [address] D BILI 0.08 mg/dL (Normal) Range: [...] (Normal) Range: 6.4-8.2 :30 CDIFF (Molecular) Comments: [address] [place], [address] CDIFF See Note (Normal) Comments: Cdiff-MolecularC. Diff DNA Negative- No toxigenic C. Diff DNA Detected :30 ENTERIC PATHOGEN PANEL STOOL Comments: [address] [place], [address] EP PANEL See Note (Normal) Comments: [...] DetectedRotavirus Not Detected 19-Feb-20167:30 Stool Lactoferrin/WBC Comments: [facility] Epkjmuxoux46[address] [place], [address] WBCST See Note (Normal) Comments: Stool Lacto/WBCFecal WBC Lactoferrin Negative: No Fecal WBC Lactoferrin present :30 Stool Occult Blood iFOB Comments: [address] [place], [address] STOB See Note (Normal) Comments: STOB iFOBOccult Blood Negative 15-Vix-188536:35 Urinalysis, Complete Comments: How was Urine Obtained? CATHETER SPECIMENW[address] [place], [address] MUCUS, URINE 0 SEEN {/hpf} [...] (Normal) CLARITY Cloudy (Normal) COLOR Yellow (Normal) 08-Nxe-107750:00 CBC W/Diff, Automated Comments: [address] [place], [address] SMEAR COMMENT SCANNED (Normal) Comments: [...] 4.2-5.4 WBC 6.8 K/mm3 (Normal) Range: 4.4-11.0 16-Toa-600793:00 Comprehensive Metabolic Profil Comments: [facility] Zyondhofui64[address] [place], [address] GAP 9 (Normal) Range: 5-15 CO2 29.0 [...] 7-18 GLU 84 mg/dL (Normal) Range: 70-110 94-Wox-893924:00 Lactic Acid Comments: [facility] Jnriknbazz[address] [place], [address] LACTIC ACID 2.6 mmol/L (Abnormal) Range: 0.4-2.0 40-Kkl-051710:00 Partial Thromboplast Time Comments: [facility] Aqmldvvfrx[address] [place] [place], [address] PTT 26.7 s (Normal) Range: 24.1-36.2 71-Tyz-238716:00 Prothrombin Time w/INR Comments: [facility] Mmecrgtwhs60[address] [place], [place], [id number] INR 1.0 (Normal) PROTIME 13.1 s (Normal) Range: 11.7-14.9 20-Jan-20161:25 PREALBUMIN (90127) Comments: PERFORMED BY: [facility]6370 [facility] [id number] Prealbumin 27 mg/dL (Normal) Range: 9-31 Comments: [...] - 36 >70 years 9 - 32 27-Fqf-276308:16 Clostridium difficile Toxin Comments: PERFORMED BY: [facility]CoPal[facility] CenterFukwln1658 [facility] [id number] A+B, EIA (20581) C difficile Toxins A+B, EIA Negative (Normal) 65-Tuz-237404:00 Culture, Urine Comments: [facility] Kon[address]pi[address] [place], [address] CUUR See Note (Normal) Comments: Urine CultureCulture exhibits no growth. 86-Bee-521036:00 Urinalysis, Complete Comments: How was Urine Obtained? CLEAN [facility] Kxtfcvrbis[address] [place], [address] MUCUS, URINE 0 SEEN {/hpf} [...] CLARITY Sl. Cloudy (Normal) COLOR Yellow (Normal) 07-Xoa-862727:30 Culture, Urine Comments: [facility] Gdviexjtnw[address] [place], [address] CUUR See Note (Normal) Comments: Urine CultureORGANISM 1: Enterococcus faecalisColony Count >100,000 Enterococcus faecalis: REACTION Ampicillin $ <=2 S Benzylpenicillin NF 2 S Ciprofloxacin $ <=0.5 S Gentamicin SYN-S S Levofloxacin $ 1 S Linezolid $$$$ 2 S Nitrofurantoin $ <=16 S Streptomycin $ SYN- S S Tetracycline NF >=16 R Vancomycin $ 1 S(NF) indicates non-formulary drug at [facility]. Approval by Infectious Disease Specialist required before non-formulary drugs may be ordered and/or dispensed. * CLSI guidelines does not recommend testing of cephalosporins. This interpretation is deduced from Beta-lactam/penicillin results. 63-Obd-155329:30 Urinalysis, Complete Comments: How was Urine Obtained? Urine, [facility] Upeugvvxlq3905 [facility] [place], [address] MUCUS, URINE 0 SEEN {/hpf} [...] CLARITY Sl. Cloudy (Normal) COLOR Yellow (Normal) 01-Jps-283932:00 ENTERIC PATHOGEN PANEL STOOL Comments: [facility] Rqwcmfvnan0589 [facility]. [place], [place], [id number] EP PANEL See Note (Normal) Comments: RESULTS CALLED TO DR. HOUSTON 09/10/15 @[address] [facility].EP PANEL STOOLNot detected for Campylobacter group, [...] DetectedVIBRIO Not DetectedNorovirus Not DetectedRotavirus Not Detected 07-Ngq-406257:00 Stool Lactoferrin/WBC Comments: [facility] Aeuvgzinkd[address]. [place], [place], [address] WBCST See Note (Normal) Comments: RESULTS CALLED TO DR. HOUSTON 09/10/15 @1952 BY THADDEUS.Stool Lacto/WBCFecal WBC Lactoferrin Negative: No Fecal WBC Lactoferrin present 35-Udz-043073:00 Stool Occult Blood iFOB Comments: [facility] Gjhrgcjgyc[address] [place], [place], [address] STOB See Note (Normal) Comments: RESULTS CALLED TO DR. HOUSTON 09/10/15 @1952 BY THADDEUS.STOB iFOBOccult Blood Negative :29 CBC with auto diff Comments: PERFORMED BY: [facility] Rjsymh4182 [facility] [id number] BY: [facility] [address] [id number] ([address]) Immature Grans (Abs) 0.0 {x10E3/uL} (Normal) Range: [...] METABOLIC PANEL, Comments: PERFORMED BY: CB [facility] Qqqzzv1868 [facility] [id number] BY: BN [facility] [address] [id number] COMPREHENSIVE (30452) ALT (SGPT) 17 [iU]/L (Normal) Range: 0-32 [...] 73 mg/dL (Normal) Range: 65-99 :29 CALCIFIDIOL (53107) VIT D Comments: PERFORMED BY: [employer] [facility] [id number] BY: [employer] [id number] 25 Vitamin D, 25-Hydroxy 39.5 ng/mL (Normal) Range: 30.0-100.0 Comments: Vitamin D deficiency has been defined by the [place] ofMedicine and an Endocrine Society practice guideline as alevel of serum 25-OH vitamin D less than 20 ng/mL (1,2).The Endocrine Society went on to further define vitamin Dinsufficiency as a level between 21 and 29 ng/mL (2).1. IOM ([place] of Medicine). 2010. Dietary reference intakes for calcium and D. [place]: The National Academies Press.2. Gabbi MF, Singh NC, Pollo JOSEPH, et al. Evaluation, treatment, and prevention of vitamin D deficiency: an Endocrine Society clinical practice guideline. JCEM. 2010; 96(7):1911-30. 20-Jan-20161:29 TRILEPTAL-OXCARBAZEPINE [id number] Comments: PERFORMED BY: [employer] [facility] [id number] BY: [employer] [id number] (20653) Oxcarbazepine 38 ug/mL (Abnormal) Range: 10-35 Comments: Detection Limit = 1 36-Vmt-354687:30 CBC W/Diff, Automated Comments: [facility] E[address]unaggn[address] [place], [place], [address] Absolute Lymph 0.90 {X10_3/ul} (Normal) Range: 0.83-4.51 [...] 4.2-5.4 WBC 5.2 K/mm3 (Normal) Range: 4.4-11.0 89-Gyj-354078:30 Comprehensive Metabolic Profil Comments: [facility] Lvjvjpebfy[address] [place], [place], [address] GAP 8 (Normal) Range: 5-15 CO2 26.0 [...] 200 mg/dLsuggests DIABETES MELLITUS per A.D.A. criteria. 77-Pps-550753:30 Lipid Profile Comments: [facility] Hxxvokeude[address] [place], [place], [address] VLDL 38 mg/dL (Normal) Range: 5-40 LDL [...] 200-240 mg/dL Borderline >240 mg/dL High Risk 53-Sur-408425:30 Prealbumin Comments: [facility] [address]xojcvblow27[address] [place], [address] PREALBUMIN 26.0 mg/dL (Normal) Range: 20.0-40.0 78-Grq-337078:30 Thyroid Stim Hormone (TSH) Comments: [facility] [address]amebwtenm[address] [place], [address] TSH 1.02 {uIU/mL} (Normal) Range: 0.358-3.74 01-Whf-039500:30 Trileptal-Oxcarbazepine Comments: [facility] (refer to report for specific site)refer to report for address and phone number TRILEPT [id number] 38 ug/mL (Abnormal) Range: 10-35 Comments: Detection Limit = 1Performed at: [facility] LabCo[address] [id number] Director: Reji Gibson MD, Phone: [phone] 27-Xgi-790573:30 Vitamin D,25 Hydroxy Comments: [facility] W[address] [place] [address] [place], [address] Vitamin D 25-OH 38.4 ng/mL (Normal) Comments: Vitamin D 25(OH) Status Range Deficiency <20 ng/mL (50nmol/L) Insuffciency 20 - 30 ng/mL (50 - 75 nmol/L) Sufficiency 30 - 100 ng/mL (75 - 250 nmol/L) Toxicity >100 ng/mL (>250 nmol/L) 2-Vte-615541:45 CBC-Complete Blood Cnt No Diff Comments: Test performed at:[facility] [address] [place] [address] [place] [address]131 MPV 10.5 fL (Normal) Range: 6.2-12.0 PLT [...] 4.2-5.4 WBC 6.3 K/mm3 (Normal) Range: 4.4-11.0 4-Vin-566311:45 Comprehensive Metabolic Profil Comments: Is Patient Taking Vitamins or Folic Acid Supplements? NTest performed at:[facility] Jngpdtyatg[address] [place], [place] [address] GAP 7 (Normal) Range: 5-15 CO2 29.0 [...] <126 mg/dLsuggests IMPAIRED HOMEOSTASIS per A.D.A. criteria. 8-Kny-823058:45 CRP Comments: Is Patient Taking Vitamins or Folic Acid Supplements? NTest performed at:[address] [place] [address] C-REACTIVE PROT < 2.90 mg/L (Normal) Range: 0.0-3.0 Comments: C-Reactive Protein (CRP) provides useful information for thediagnosis, therapy and monitoring of inflammatory processesand associated diseases. For the evaluation of Relative Riskfor Cardiovascular Dise ase, a High Sensitivity CRP (HSCRP)should be ordered. :45 Erythrocyte Sed Rate Comments: Test performed at:[address] [place] [address] SED RATE 13 mm/h (Normal) Range: 0-20 :45 Folates, (Folic Acid) Comments: Is Patient Taking Vitamins or Folic Acid Supplements? NTest performed at:[address] [place] [address] FOLATES 15.70 ng/mL (Normal) Range: 3.1-17.5 :45 Free T3 Comments: Is Patient Taking Vitamins or Folic Acid Supplements? NTest performed at:[address] [place] [address] FREE T3 2.4 pg/mL (Normal) Range: 2.18-3.98 :45 Miscellaneous Lab Procedure Comments: Test(s) Ordered: OXCARBAZEPINE, #[id number], RED TOP SERUM/RFTest performed at:[address] [place] [address] MISC Comments: Oxcarbazepine (Trileptal), S Oxcarbazepine 35 ug/mL Ref: 35 Detection Limit=1 TESTING PERFOR MED AT [facility] (Normal) rp. ORIGINAL REPORT ON FILE IN LAB CONTAINS ADDITIONAL TEST SITE INFORMATION. TEST :45 Prealbumin Comments: Is Patient Taking Vitamins or Folic Acid Supplements? NTest performed at:[facility] [address]fwr[address] [place] [address] PREALBUMIN 30.9 mg/dL (Normal) Range: 20.0-40.0 :45 ,Serum,hCG Quali. Comments: Test performed at:[facility] [address] [place] [address] HCGSQUAL NEGATIVE {Negative} (Normal) Range: 0-9 Nonpreg HCG Qual triggr < 1 m[iU]/mL (Normal) :45 Prolactin Comments: Is Patient Taking Vitamins or Folic Acid Supplements? NTest performed at:[facility] [address] [place], [place] [address] PROLACTIN 9.5 ng/mL (Normal) Comments: NORMAL REFERENCE RANGES FEMALE NON- 2.2 - 30.3 ng/mL 8.1 - 347.6 ng/mL POST-MENOPAUSAL 0.7 - 3 1.5 ng/mL MALE 2.5 - 17.4 ng/mLNEW TEST METHOD AND REFERENCE RANGES FEBRUARY 01, 2012:45 T4 Free Direct Comments: Is Patient Taking Vitamins or Folic Acid Supplements? NTest performed at:[facility] [address] [place] [address] T4 FREE DIRECT 0.74 ng/dL (Abnormal) Range: 0.76-1.46 :45 Thyroid Stim Hormone (TSH) Comments: Is Patient Taking Vitamins or Folic Acid Supplements? NTest performed at:[facility] [address] [place] [address] TSH 1.39 {uIU/mL} (Normal) Range: 0.358-3.74 :45 Urinalysis, Routine (Dipstick) Comments: How was Urine Obtained? Urine, RandomTest performed at:[facility] Bicrft[address]ova[address] [place] [address] LEUK ESTERASE 500 /ul (Abnormal) OCCULT BLOOD-UR Negative /ul (Normal) NITRITE UR Negative (Normal) UROBILI Normal mg/dL (Normal) PROT DIPSTX Negative mg/dL (Normal) pH UR 8.0 (Normal) Range: 5.0 - 8.0 SP.GR. DIPSTX 1.010 (Normal) Range: 1.002-1.030 KETONE UR Negative mg/dL (Normal) BILIRUBIN URINE Negative mg/dL (Normal) GLUCOSE, UR Normal mg/dL (Normal) CLARITY Sl. Cloudy (Normal) COLOR Yellow (Normal) 9-Heb-739804:45 Vitamin B12 1089 pg/mL (Abnormal) Comments: Test performed at:[facility] [address]kl[address]ehq[address] [place] [address] Range: 211-911 4-Vkl-477078:45 Vitamin D,25 Hydroxy Comments: Test performed at:[facility] Iaon[address] [place] [address] Vitamin D 25-OH 23.9 ng/mL (Normal) Comments: Vitamin D 25(OH) Status Range Deficiency <20 ng/mL (50nmol/L) Insuffciency 20 - 30 ng/mL (50 - 75 nmol/L) Sufficiency 30 - 100 ng/mL (75 - 250 nmol/L) Toxicity >100 ng/mL (>250 nmol/L) 17-Wxz-281442:43 ALBUMIN SERUM (34157) Comments: PATIENT NOT FASTINGPERFORMED BY: [facility] [id number] Albumin, Serum 4.7 g/dL (Normal) Range: 3.5-5.5 85-Fnn-683389:43 PREALBUMIN (35864) Comments: PATIENT NOT FASTINGPERFORMED BY: [facility] [id number] Prealbumin 29 mg/dL (Normal) Range: 20-40 27-Omq-310609:21 ANJELICA CULTURE-OTHER (04774) Comments: PATIENT NOT FASTINGPERFORMED BY: MuseStormox RoadDublin [place] [id number] Information: SRC:THRT [id number] Result 1 RRF (Normal) Comments: Routine respiratory jasper Upper Respiratory Culture Final report (Normal) 42-Rwj-703218:43 PROLACTIN (87855) Comments: PATIENT NOT FASTINGPERFORMED BY: [facility]6370 [facility] [id number] Prolactin 13.8 ng/mL (Normal) Range: 4.8-23.3 69-Knb-969313:43 T3, FREE (TRIDOTHYRONINE) (58455) Comments: PATIENT NOT FASTINGPERFORMED BY: [place] [address]2670 [facility] [id number] Triiodothyronine,Free,Serum 3.3 pg/mL (Normal) Range: 2.0-4.4 80-Kvf-052776:43 T4, FREE (THYROXINE) (56300) Comments: PATIENT NOT FASTINGPERFORMED BY: [facility]6370 [facility] [id number] T4,Free(Direct) 1.14 ng/dL (Normal) Range: 0.82-1.77 00-Jcq-634382:43 TSH (92203) Comments: PATIENT NOT FASTINGPERFORMED BY: [facility]6370 [facility] [id number] Information: [id number] TSH 1.580 {uIU/mL} (Normal) Range: 0.450-4.500 14-Sbu-990927:00 CBCD ANC 1.8 {X10_3/uL} (Abnormal) Range: 2.0-7.7 [...] CDIFF See Note (Normal) Comments: FAXED TO [employer] C. Diff DNA Positive-Toxigenic C. Difficile DNA [...] Negative- No toxigenic C. Diff DNA Detected 2-Qve-738527:55 Oxcarbazepine (Trileptal),S Comments: PERFORMED BY: [employer] [facility] [id number] BY: [address] [id number] Oxcarbazepine 32 ug/mL (Normal) Range: 10-35 Comments: Detection Limit = 1 :55 CALCIFIDIOL (06453) VIT D Comments: PERFORMED BY: [employer] [facility] [id number] BY: [employer] [id number] 25 Vitamin D, 25-Hydroxy 27.4 ng/mL (Abnormal) Range: 30.0-100.0 Comments: Vitamin D deficiency has been defined by the [place] ofMedicine and an Endocrine Society practice guideline as alevel of serum 25-OH vitamin D less than 20 ng/mL (1,2).The Endocrine Society went on to further define vitamin Dinsufficiency as a level between 21 and 29 ng/mL (2).1. IOM ([place] of Medicine). 2010. Dietary reference intakes for calcium and D. [place]: The National Academies Press.2. Gabbi MF, Singh MCKEON, Pollo JOSEPH, et al. Evaluation, treatment, and prevention of vitamin D deficiency: an Endocrine Society clinical practice guideline. JCEM. 2010; 96(7):1911-30. :55 Folate (23954) Comments: PERFORMED BY: [employer] [facility] [id number] BY: [address] [id number] Folate (Folic Acid), Serum 16.3 ng/mL (Normal) Comments: A serum folate concentration of less than 3.1 ng/mL isconsidered to represent clinical deficiency. :55 VITAMIN B-12 (CYANOCOBALAMIN) Comments: PERFORMED BY: [employer] Vcdasj6194 [facility] [id number] BY: [address] [id number] (73266) Vitamin B12 889 pg/mL (Normal) Range: 211-946 :55 TSH (96073) Comments: PERFORMED BY: [employer] [facility] [id number] BY: [address] [id number] TSH 1.670 {uIU/mL} (Normal) Range: 0.450-4.500 :55 SED RATE ERYTHROCYTE Comments: PERFORMED BY: [employer] [facility] [id number] BY: [address] [id number] (93396) Sedimentation Rate-Westergren 6 mm/h (Normal) Range: 0-32 :55 METABOLIC PANEL, Comments: PERFORMED BY: [employer]6370 [facility] [id number] BY: [employer] [id number] [facility] (76489) ALT (SGPT) 11 [iU]/L (Normal) Range: 0-32 [...] cells when received.This may adversely affect serumChemistries. 6-Txt-788417:55 C-REACTIVE PROTEIN (18555) Comments: PERFORMED BY: [employer] [facility] [id number] BY: [employer] [address] [id number] C-Reactive Protein, Quant 0.9 mg/L (Normal) Range: 0.0-4.9 :55 CBC (AUTO) (02217) Comments: PERFORMED BY: [employer] [facility] [id number] BY: [employer] [id number] Platelets 213 {x10E3/uL} (Normal) Range: 140-415 Comments: [...] of these values in the reference population. 1-Hht-744555:29 ANJELICA CULTURE-OTHER (51699) Comments: PATIENT NOT FASTINGPERFORMED BY: [facility] [id number] Information: SRC:THRT [id number] Result 1 RRF (Normal) Comments: Routine respiratory jasper Upper Respiratory Culture Final report (Normal) 7-Cxl-022044:03 Rapid Strep Test, Office (99805) Rapid Strep Test, Negative (Normal) Office 97-Eyb-479230:55 CDIF See Note (Normal) Comments: A positive [...] in these cases. C. DIFF ANTIGENS POSITIVE 48-Dsv-732617:30 CDIF See Note (Normal) Comments: RESULTS CALLED [...] Comments: C. DIFF ANTIGENS NEGATIVE :2 TRILEPT [id number] 20 ug/mL (Normal) Range: 10-35 4 Comments: Detection Limit = 1Performed at: [facility] [address] [id number] Director: Reji Gibson MD, Phone: [phone] 47-Fgw-155335:1 C DIF TOXIN/AG See Note (Normal) Comments: RESULTS CALLED TO 06/23/112004 VONDA ELAM.REPORT READ BACK BY SAME . * This is an amended result. * A 5 prior result that was reported as final has been changed.06/23/112004 by IESHAPreviously reported as: C. DIFF ANTIGENS POSITIVE 90-Fyh-227761:46 COMP METABOLIC GAP 11 (Normal) Range: 5-15 [...] 7-18 GLU 71 mg/dL (Normal) Range: 70-110 27-Ghm-315578:41 CBCD ABSOLUTE NEUT 5.0 3/uL (Normal) Range: [...] 4.2-5.4 WBC 7.2 K/mm3 (Normal) Range: 4.4-11.0 2-Tbn-754088:49 CULTURE, THROAT See Note (Normal) Comments: Normal [...] STOOL/SHIG Comments: RESULTS CALLED TO OFFICE TO THAISYZQVKWES63/04/10 115KRISTIAN DAWSON.REPORT READ BACK BY SAME . [...] Cyclospora, or Microspo ridia. TESTING PERFORMED AT [facility]. ORIGINAL REPORT ON FILE IN LAB [...] Cyclospora, or Microspo ridia. TESTING PERFORMED AT [facility]. ORIGINAL REPORT ON FILE IN LAB CONTAINS ADDITIONAL TEST SITE INFORMATION. OVA/ PARASITES EXAM NO OVA, CYSTS, OR PARASITES FOUND. :20 WBC,STOOL See Note (Normal) Comments: FECAL WBCs NONE SEEN 64-Rwm-223912:14 C DIF TOXIN See Note (Normal) :44 O AND P See Note (Normal) Comments: OVA AND PARASITES EXAM, ROUTINE These results were obtained using wet preparation(s) and trichrome stained smear. This test does not include testing for Crytosporidium parvum, Cyclospora, or Microspo ridia. TESTING PERFORMED AT [facility]. ORIGINAL REPORT ON FILE IN LAB [...] Cyclospora, or Microspo ridia. TESTING PERFORMED AT [facility]. ORIGINAL REPORT ON FILE IN LAB [...] :00 TSH 1.63 {uIU/mL} (Normal) Range: 0.358-3.74 90-Lbk-531829:00 CULTURE, SPUTUM GRAM STAIN See Note (Normal) Comments: GRAM STAIN RARE WHITE BLOOD CELLS RARE GRAM POSITIVE COCCI RARE GRAM NEGATIVE RODS Plan of Care Name Dates Details Instructions Type II diabetes mellitus, well controlled : Continue Current Prescription(s) Indication: Type II diabetes mellitus, well controlled Convulsions : Reviewed User Interface Developer Letter Indication: Convulsions Neuromuscular scoliosis : [...] Cystitis, acute Planned Observations URINE ANJELICA CULTURE-IDENTIFICATN (61651)Indication: Abnormal urine On: 1-Jiy-852052:25 Request MRSA Culture (75434)Indication: Thick sputum On: 3-Isd-858922:32 Request Anaerobic & Aerobic Culture (01550)Indication: Thick sputum On: 35-Iik-104449:46 Request Comments: collected from trachea stoma Anaerobic & Aerobic Culture (89407)Indication: Cellulitis of groin, right On: 7-Quo-184498:44 Request TRILEPTAL-OXCARBAZEPINE 537806 ([id number])Indication: Diarrhea On: 7-Wcw-515943:24 Request VITAMIN B12 AND FOLATES (99473)Indication: Diarrhea On: 6-Qxi-787100:24 Request CALCIFEDIOL (68748)Indication: Diarrhea On: 2-Xoo-412397:24 Request CALCIFEDIOL (46252)Indication: Diarrhea On: 2-Lhz-436302:23 Request TSH (THYROID STIMULATING HORMONE) (97545)Indication: Diarrhea On: :23 Request METABOLIC PANEL, COMPREHENSIVE (32532)Indication: Diarrhea On: 8-Nfv-758067:23 Request CBC, PLATELETS & AUT DIFF (48887)Indication: Diarrhea On: 7-Lrf-014262:23 Request OVA & PARASITE DIR SMEAR (98333)Indication: Diarrhea On: 91-Wff-242344:46 Request ANJELICA CULTURE-STOOL (21100)Indication: Diarrhea On: :46 Request OCCULT BLOOD FECES SCREEN (86361)Indication: Diarrhea On: :46 Request LEUKOCYTE COUNT, FECAL (55523)Indication: Diarrhea On: :46 Request C-DIFFICILE, STOOL (22369)Indication: Diarrhea On: :46 Request OVA & PARASITE DIR SMEAR (03155)Indication: C. difficile diarrhea On: :50 Request OCCULT BLOOD FECES SCREEN (61243)Indication: C. difficile diarrhea On: :50 Request ANJELICA CULTURE-STOOL (99211)Indication: C. difficile diarrhea On: :50 Request LEUKOCYTE COUNT, FECAL (45137)Indication: C. difficile diarrhea On: :50 Request C-DIFFICILE, STOOL (84049)Indication: C. difficile diarrhea On: :49 Request Clostridium difficile Culture (99119)Indication: Diarrhea On: 9-Yaf-268627:52 Request URINALYSIS, W/ MICRO (30346)Indication: Dysuria On: :56 Request URINE ANJELICA CULTURE-SISSY COL COUNT (25298)Indication: Dysuria On: :54 Request OCCULT BLOOD FECES SCREEN (58091)Indication: Diarrhea On: :01 Request LEUKOCYTE COUNT, FECAL (11686)Indication: Diarrhea On: :05 Request ANJELICA CULTURE-STOOL (60346)Indication: Diarrhea On: :05 Request Clostridium difficile Toxin A+B, EIA (34345)Indication: Diarrhea On: :05 Request TRILEPTAL-OXCARBAZEPINE 738790 (13397)Indication: Convulsions On: :55 Request PREALBUMIN (52970)Indication: Nutritional assessment On: :45 Request CALCIFIDIOL (59973) VIT D 25Indication: Vitamin D deficiency On: :44 Request TSH (40306)Indication: Hypertension On: :44 Request METABOLIC PANEL, COMPREHENSIVE (47154)Indication: Hypertension On: :44 Request LIPID PANEL (07504)Indication: Hypertension On: :44 Request CBC with auto diff (47481)Indication: Hypertension On: :44 Request Metabolic Panel, Basic (94011)Indication: Abnormal urine On: :03 Request VITAMIN B12 AND FOLATES (82629)Indication: Abnormal urine On: : Request CALCIFEDIOL (23854)Indication: Abnormal urine On: 8-Awr-835399:03 Request Comments: vit d3 URINE ANJELICA CULTURE-SISSY COL COUNT (65320)Indication: Abnormal urine On: :52 Request TRILEPTAL-OXCARBAZEPINE 249058 (10383)Indication: Cerebral palsy On: :46 Request HCG Qualitative, Serum (17919)Indication: Amenorrhea On: :45 Request PROLACTIN (25376)Indication: Amenorrhea On: :44 Request PREALBUMIN (23043)Indication: Cerebral palsy On: 58-Gtl-057532:43 Request URINALYSIS (34734)Indication: Fatigue On: :43 Request T3, FREE (TRIDOTHYRONINE) (50450)Indication: Fatigue On: :43 Request T4, FREE (THYROXINE) (28578)Indication: Fatigue On: :43 Request Folate (70247)Indication: Fatigue On: :42 Request CALCIFIDIOL (26193) VIT D 25Indication: Fatigue On: 57-Ygm-478603:42 Request VITAMIN B-12 (CYANOCOBALAMIN) (78249)Indication: Fatigue On: 37-Ghz-171831:42 Request TSH (51815)Indication: Fatigue On: :42 Request SED RATE ERYTHROCYTE (22551)Indication: Fatigue On: 37-Ovb-238936:42 Request METABOLIC PANEL, COMPREHENSIVE (06279)Indication: Fatigue On: 49-Uys-849760:42 Request C-REACTIVE PROTEIN (63807)Indication: Fatigue On: 55-Mni-035522:42 Request CBC (AUTO) (36298)Indication: Fatigue On: 48-Xcr-394125:42 Request CULTURE,BODY FLUID (49448)Indication: Irregular Menstrual Cycle (Renamed from Irregular bleeding) On: 20-Pkj-813861:07 Request Comments: urine Rapid Strep Test, Office (71197)Indication: Pharyngitis, acute On: 35-Ngr-864393:51 Request Urinalysis, Office (66672)Indication: Fatigue On: 83-Fhb-504373:49 Request HgA1C , Office (22664)Indication: Hyperglycemia On: 71-Kvw-174410:41 Request CALCIFIDIOL (19102) VIT D 25Indication: Vitamin D deficiency On: :32 Request TRILEPTAL-OXCARBAZEPINE 985452 (70823)Indication: Convulsions On: :31 Request Metabolic Panel, Comprehensive (55044)Indication: Acute renal failure On: :31 Request CBC with manual diff (49443)Indication: Hypertension On: :31 Request CBC with manual diff (17080)Indication: Thrombocytopenia, unspecified On: :35 Request Comments: in citrate tube FIBRINOGEN (33227)Indication: Thrombocytopenia, unspecified On: :35 Request PTT (Activated Partial Thromboplastin Time) (95215)Indication: Thrombocytopenia, unspecified On: :35 Request PT (Prothrobim Time) (87943)Indication: Thrombocytopenia, unspecified On: :35 Request HEPATITIS C ANTIBODY (25951)Indication: Thrombocytopenia, unspecified On: :35 Request HEPATITIS B CORE ANTBD-IGG/IGM (04974)Indication: Thrombocytopenia, unspecified On: :35 Request HEPATITIS B SURFACE ANTIGEN (58394)Indication: Thrombocytopenia, unspecified On: :35 Request HEPATITIS B SURFACE ANTIBODY (79202)Indication: Thrombocytopenia, unspecified On: :35 Request Methylmalonic acid, serum 22829Rluicxjckh: Thrombocytopenia, unspecified On: :35 Request Vitamin B-12 (cyanocobalamin) (15474)Indication: Thrombocytopenia, unspecified On: :35 Request Sed Rate Erythrocyte (01568)Indication: Thrombocytopenia, unspecified On: :35 Request Metabolic Panel, Comprehensive (85443)Indication: Thrombocytopenia, unspecified On: :35 Request JENNY (ANTINUCLEAR ANTIBODY) (55388)Indication: Thrombocytopenia, unspecified On: :35 Request CBC with manual diff (47714)Indication: Convulsions On: 45-Ika-671536:31 Request Clostridium difficile Toxin A+B, EIA (40263)Indication: Diarrhea On: :31 Request OVA & PARASITE DIR SMEAR (21680)Indication: Diarrhea On: :44 Request OCCULT BLOOD FECES SCREEN (01646)Indication: Diarrhea On: :44 Request LEUKOCYTE COUNT, FECAL (25281)Indication: Diarrhea On: :44 Request ANJELICA CULTURE-STOOL (50834)Indication: Diarrhea On: :44 Request Clostridium difficile Toxin A+B, EIA (41494)Indication: Diarrhea On: 44-Noo-176154:22 Request C DIFF AMPLIFIED PROBE (27550)Indication: Diarrhea On: 89-Abi-86260:51 Request Metabolic Panel, Comprehensive (05613)Indication: Acute renal failure On: :08 Request Comments: recheck prior to August. CALCIFIDIOL (37093) VIT D 25Indication: Vitamin D deficiency On: :08 Request Comments: recheck prior to August. TRILEPTAL-OXCARBAZEPINE 107859 (53402)Indication: Convulsions On: 1-Lns-021403:08 Request Culture, Stool (45857)Indication: Diarrhea On: :01 Request C DIFF AMPLIFIED PROBE (40583)Indication: Diarrhea On: :01 Request C DIFF AMPLIFIED PROBE (19153)Indication: Diarrhea On: 95-Cpn-653745:32 Request C DIFF AMPLIFIED PROBE (87787)Indication: Diarrhea On: 07-Nob-511542:51 Request URINE ANJELICA CULTURE-IDENTIFICATN (20658)Indication: Backache On: 7-Pun-108071:58 Request URINALYSIS (02670)Indication: Backache On: 7-Zvy-130993:58 Request Metabolic Panel, Comprehensive (21380)Indication: Profound mental retardation (Renamed from IQ under 20) On: 7-Jsk-907621:25 Request Comments: Dr Pino neurologist at [facility] CBC (Auto) (68061)Indication: Profound mental retardation (Renamed from IQ under 20) On: 3-Mvw-399796:25 Request TRILEPTAL-OXCARBAZEPINE 101506 (51668)Indication: Cerebral palsy On: 8-Dsq-980821:24 Request COLUMN CHROMATOGRAPHY, SISSY, SINGLE (76242)Indication: Convulsions On: 33-Vxd-687681:54 Request Comments: trileptal 550084 Clostridium difficile Toxin A+B, EIA (14606)Indication: Diarrhea On: 74-Sem-808400:26 Request CBC (Auto) (22563)Indication: Convulsions On: 63-Vdh-516962:25 Request Metabolic Panel, Comprehensive (76307)Indication: Convulsions On: 45-Mgk-617317:24 Request ANJELICA CULTURE-OTHER (93996)Indication: Pharyngitis, acute On: 1-Fzo-599342:44 Request C.Difficile, Stool (26467)Indication: Diarrhea On: 46-Mqx-181347:48 Request ANJELICA CULTURE-STOOL (36747)Indication: Diarrhea On: :55 Request C.Difficile, Stool (77354)Indication: Diarrhea On: :54 Request LEUKOCYTE COUNT, FECAL (95279)Indication: Diarrhea On: :27 Request OVA & PARASITE DIR SMEAR (54454)Indication: Diarrhea On: :27 Request C.Difficile, Stool (03741)Indication: Diarrhea On: :27 Request ANJELICA CULTURE-STOOL (36414)Indication: Diarrhea On: :27 Request TSH (94164)Indication: Unspecified bacterial pneumonia On: 5-Zim-347280:48 Request CBC, Platelets & Auto Diff (32268)Indication: Unspecified bacterial pneumonia On: :48 Request Magnesium (37917)Indication: Unspecified bacterial pneumonia On: 5-Lkr-343382:48 Request Phosphorus (15664)Indication: Unspecified bacterial pneumonia On: 5-Tfu-328045:48 Request Metabolic Panel, Basic (03852)Indication: Unspecified bacterial pneumonia On: 4-Mxl-623131:48 Request Planned Encounters Medical; 4 Month FU - On: 10-Oct-2018 13:15 [facility] Lara Sandra Laar MCCULLOUGHSandra Planned Procedures Flu Vaccine (Quadrivalent) On: 06-Jun-2018 Intent 44260Sx: Lara MCCULLOUGHSandra Comments: Lot #[id number]-L dltd, IMDose prefilled syringegiven by:MARICARMEN Santana reviewed and ABN signed Sandra Bermudez DO Flu Vaccine (Quadrivalent) On: 02-Aug-2017 Intent 37042Fv: Lara MCCULLOUGHSandra Comments: Lot:[id number]:12/29Amt:0.5mlRoute:IMSite: Rt DltdGiven By: ALFREDITO James signed Sandra Bremudez DO Flu Vaccine (Quadrivalent) On: 14-May-2016 Intent 23665Wb: Roe Baxter MD Comments: Lot #[id number]-L dltd, IMDose prefilled syringegiven by:ALFREDITO Goldberg and ABN signed ADMINISTRATION OF INFLUENZA On: 02-Aug-2015 Intent VIRUS VACCINE (G0008)By: Linda Houston MD Flu Vaccine (Quadrivalent) On: 02-Aug-2015 Intent 33193Gt: Linda Houston MD Comments: Lot #:[id number] date:Amount given:0.5mlRoute: IMSite given:L DltdGiven by: Jessica BASSETT and ABN signed Quad Flu ELECTROCARDIOGRAM, COMPLETE On: 21-Mar-2015 Intent (ECG) (52958)By: Linda Houston MD CT - Brain/Head (IV Contrast On: 29-Nov-2014 Intent Needed)By: Linda Houston MD ADMINISTRATION OF INFLUENZA On: 06-Aug-2014 Intent VIRUS VACCINE (G0008)By: TIMBO Villegas Flu Vaccine (Quadrivalent) On: 06-Aug-2014 Intent 63923Ql: TIMBO Villegas Comments: Lot #:[id number] date:mount given:0.5mlRoute: IM Site given:Given by: to be given per patient home health nurse CATHETERIZE FOR URINE SPEC On: 09-Mar-2014 Intent (P9612)By: Linda Houston MD Comments: pls use pediatric cath- and fax results to [phone] SPECIMEN HNDLNG/TRNSPRT, OFFC > On: 09-Mar-2014 Intent LAB (42270)By: Linda Houston MD IMMUNIZ ADMNIN, 1 VAC, On: 28-Jul-2013 Intent SNGL/COMBO (16050)By: Archie BOLDEN, Comments: Lot #[id number] to nurse for admin Jessica Stack FLU VAC, SPLIT, >3 YEARS, On: 28-Jul-2013 Intent INTRAMUSC (81130)By: Jessica Almanza LPN SPECIMEN HNDLNG/TRNSPRT, OFFC > On: 18-May-2013 Intent LAB (47909)By: Linda Huoston MD Eprescribed prescriptions On: 18-May-2013 Intent (G8553)By: Jessica Almanza LPN FLU VAC, SPLIT, >3 YEARS, On: 23-Jun-2011 Intent INTRAMUSC (49421)By: Archie BOLDEN, Comments: Lot #[id number]-L arm, IMDose prefilledgiven by:Jessica Stack IMMUNIZ ADMNIN, 1 VAC, On: 23-Jun-2011 Intent SNGL/COMBO (31044)By: Jessica Almanza LPN Instructions Name Dates Details [...] for the procedure will be Dr Beck [facility]. The chief complaint is teeth cleanin [...]
--- OUTSIDE RECORDS SUMMARY | 2018-10-08 11:28 | XMS RPT_ITS | Continuity of Care Document ---
:1990 Author Organization [facility] Address [address] [place] [address] Phone Care Team Providers Name Role Phone [...] Propionate 50 MCG/ACT Nasal Suspension 2 (two) Burlingham(s) Burlingham(s) each nostril qd for 90 days Quantity: 1 {QS} Refills: 3 Ordered:16-Sep-2017 Karin Bermudez DO, DO, Kathleen Start : 16-Sep-2017 Active Lantus SoloStar 100 UNIT/ML Subcutaneous Solution Pen-injector 2 (two) Unit bid for 30 days Quantity: 1 {Box} Refills: 3 Ordered:17-Jun-2018 Karin Bermudez DO, DO, Kathleen Start : 17-Jun-2018 Active Miconazole Nitrate 2 % External Cream 1 (one) Cream Cream three times daily for 10 days Quantity: 1 {Tube} Refills: 1 Ordered:1-Sep-2016 Daisy Pineda LPN Start : 14-May-2016 Active NAPHCON-A, 0.025-0.3% (Ophthalmic Solution) 1-2 gtt gtt up to qid prn for redness/itching for 0 days Quantity: 1 {Each} Refills: 0 Ordered:20-Jan-2016 Linda Houston MD Start : 20-Jan-2016 Active Nyamyc 227439 UNIT/GM External Powder uad Powder to affected area(s) bid and prn for 0 days Quantity: 15 {Bottle} Refills: 6 Ordered:19-Nov-2017 Karin Bermudez DO, DO, Kathleen Start : 19-Nov-2017 End : 17-Nov-2013 Active Nystatin 541145 UNIT/GM External Cream uad Cream to affected area(s) bid prn for 7 days Quantity: 1 {Bottle} Refills: 3 Ordered:03-Jun-2018 Karin Bermudez DO, DO, Kathleen Start : 03-Jun-2018 Active Nystatin 627087 UNIT/ML Mouth/Throat Suspension 5 ml ml 5 times day for 10 days Quantity: 250 {Milliliter} Refills: 9 Ordered:03-Apr-2016 Jessica Almanza LPN Start : 03-Apr-2016 Active Nystatin Powder 1 Powder Powder tid for 10 days Quantity: 1 {Bottle} Refills: 3 Ordered:28-Jun-2017 Karin Bermudez DO, DO, Kathleen Start : 28-Jun-2017 Active Pen [place] 31G X 5 MM Miscellaneous 1 (one) [...] days Quantity: 30 {Tablet} Refills: 6 Ordered:21-Mar-2015 Archie Jessica BOLDEN Start : 22-May-2013 Active Xopenex 1.25 MG/3ML Inhalation Nebulization Solution 3 ml plus 6-12 ml NS Nebulized Soln tid via IPV macine) for 0 days Quantity: 2 {Box} Refills: 6 Ordered:02-May-2018 Lara Karin Sandra Start : 02-May-2018 Active Comments:has tried [...] for 0 days Refills: 0 Ordered:23-Jun-2011 Long MUSIC JOURNALIST, Jessica L End : 23-Jun-2011 Inactive LevoFLOXacin 25 MG/ML Oral Solution 1 (one) Solution 500mg daily for 7 days Quantity: 3500 {Milligram} Refills: 0 Ordered:17-Feb-2017 Katia JOHNSTONLiliam Start : 17-Feb-2017 End : 24-Feb-2017 Inactive LIDOCAINE, 5% (External Ointment) Ointment uad for 0 days Quantity: 1 {Ointment} Refills: 3 Ordered:14-Jan-2012 TIMBO Villegas Start : 13-Jun-2009 End : 14-Jan-2012 Inactive LUNESTA, 1MG (Oral Tablet) 1 qd (crushed or dissolved) for 0 days Refills: 0 Ordered:23-Jun-2011 Long MUSIC JOURNALIST, Jessica L End : 23-Jun-2011 Inactive MUCINEX FOR KIDS, 100MG/5ML (Oral Liquid) Liquid 15 cc tid 14 days for 0 days Refills: 0 Ordered:23-Jun-2011 Long MUSIC JOURNALIST, Jessica L Start : 13-Jun-2009 End : [...] days Quantity: 10 {Fluid_Ounce} Refills: 0 Ordered:27-Dec-2014 Pattie LEIJA, Linda Nettles Start : 27-Dec-2014 End : 06-Jan-2015 Inactive [...] nostril qd for 0 days Quantity: 1 {Burlingham} Refills: 3 Ordered:09-Apr-2015 Linda Houston MD Start : 09-Apr-2015 End : 20-Jan-2016 Discontinued Comments:This order discontinued per [facility]. MUCOMYST, 20% (Inhalation Solution) 1 bid/prn for 0 days Refills: 0 Ordered:23-Jun-2011 Long MUSIC JOURNALIST, Jessica L End : 23-Jun-2011 Discontinued Comments:This order discontinued per [employer]. VYTONE, 1-1% (External Cream) Cream bid for 0 days Quantity: 1 {Cream} Refills: 3 Ordered:13-Jun-2009 Long MUSIC JOURNALIST, Jessica L Start : 13-Jun-2009 End : [...] 09-Mar-2014 Acute renal failure (N17.9, 584.9) Comments: 912 when in hospital and will get report [...] Comments: See Note; NOTES: [facility] of [address] [place] [address] OFFICE VISIT Date of Service: 05/25/18 MR#: [id number] Acct: [id number] Name: MANDY MONTERO Rickey Rep #: [id number] : 1990 Provider: Lawrence Weiner MD Age/Sex: 28/F [place] [facility] [place] Status: Signed Assessment AND [...] Department Summary Result: Comments: See Note; NOTES: [facility] Medical Records Department [address] [facility] [place] [address] Emergency Department Summary 01/24/18 1645 MR#: [id number] Acct: [id number] Name: MANDY MONTERO Rep #: [id number] : 1990 27 From: Stephan Hughes MD [...] Discharged to home Impression: 1. Cellulitis left [facility] 2. Dysuria of unknown etiology 3. History of MRDD 4. History of Propulsid 5. History of chronic respiratory failure on ventilator This note was generated with iMusicTweetation software. It m ay contain incorrect words, [...] Instructions: Mandy prescription was electronically transmitted to [place] [facility], your [facility] pharmacy What to do if you have Problems For any increased pain, shortness of breath, bleeding, nausea or vomiting, chest pain, or any unexpected problems, contact your Primary Care Provider. Call [facility] ([phone]) or report to the closest Emergency Room. Call 911 if necessary. 01/24/18 6332 <Electronically signed by Stephan Hughes MD> Date Stephan Hughes MD Cosigner Signature (If Indicated): Date CC: Sandra Bermudez DO 10-Dec-2017 Pulmonary Visit Report Result: Comments: See Note; NOTES: [facility] of [place] [address] [place] [address] OFFICE VISIT Date of Service: 12/09/17 MR#: [id number] Acct: [id number] Name: MANDY MONTERO Rep #: [id number] : 1990 Provider: Lawrence Weiner MD Age/Sex: 27/F [place] [facility] [place] Status: Signed Assessment AND Plan 1. Chronic [...] Comments: See Note; NOTES: [facility] [place] [address] [place] [address] OFFICE VISIT Date of Service: 09/02/17 MR#: [id number] Acct: [id number] Name: MANDY MONTERO Rep #: [id number] : 1990 Provider: Lawrence Weiner MD Age/Sex: 27/F [place] [facility] [place] Status: Signed Assessment AND [...] mg (10 mL) PO QDAY PRN allergy isxltsroP24 .2 Ok to give through PEG Follow Up 3 Months ([facility] HPI 6 M FU: Chief Complaint: Increased secretions Details: Patient is a 27-year-old female who presents for evaluation secondary to incre ased secretions. Since last visit, patient's mother denies any ER visits, hospitalizations or prednisone burst. Patient does suffer from cerebral palsy and is unable to answer for herself. 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 Family reports the patient has had [...] Department Summary Result: Comments: See Note; NOTES: [facility] Medical Records Department [address] [place] [address] Emergency Department Summary MR#: [id number] Acct: [id number] Name: MANDY MONTERO Rep #: [id number] : 1990 26 From: Flip Jessica MD [...] . Flip Jessica MD T: NTS JOB: [id number] 03/10/17805 <Electronically signed by Flip Jessica MD> Date Flip Jessica MD Cosigner Signat ure (If Indicated): Date CC: Sandra Bermudez DO Date Dictated: 03/06/171722 Date Transcribed: 03/06/171722 Gold Nib Grinder: Signed 06-Mar-2017 Discharge Instruction Result: Comments: See Note; NOTES: [facility] Medical Records Department [address] [place] [address] Discharge Instruction 03/06/171719 MR#: [id number] Acct: [id number] Name: ROMELIA MONTERO LISA Rickey Rep #: [id number] : 1990 26 From: Flip Jessica MD [...] your Primary Care Provider. Call [facility] ([phone]) or report to the closest Emergency Room. Call 911 if necessary. 03/06/171719 <Electronically signed by Flip Jessica MD> Date Flip Jessica MD Cosigner Signature (If Indicated): Date CC: Sandra Bemrudez DO 06-Mar-2017 Chest 1 View Result: Comments: See Note; NOTES: [facility] Imaging Services [address] [place] [address] Verdana 4d Chest 1 View MR#: [id number] Acct: [id number] Name: MANDY MONTERO Rep #: [id number] : 1990 F 26 From: Merritt Bolton MD PCP: Sandra Bermudez DO Status: REG ER Study: Chest 1 View Date of Exam: 03/06/17 Exam# [id number] Ordering Dr: Flip Jessica MD STUDY: X-RAY [...] CC: Flip Jessica MD; Sandra Bermudez DO Gold Nib Grinder: Signed 06-Mar-2017 Thoracic Spine 3 Views Result: Comments: See Note; NOTES: [facility] Imaging Services [address] [place] [address] Verdana 4d Thoracic Spine 3 Views MR#: [id number] Acct: [id number] Name: MANDY MONTERO Rep # : [id number] : 1990 F 26 From: Merritt Bolton MD PCP: Sandra Bermudez DO Status: REG ER Study: Thoracic Spine 3 Views Date of Exam: 03/06/17 Exam# [id number] Ordering Dr: Flip Jessica MD [facility] DY: X-RAY - THORACIC SPINE REASON FOR [...] CC: Flip Jessica MD; Sandra Bermudez DO Gold Nib Grinder: Signed 10-Sep-2016 Chest 1 View (Portable) Result: Comments: See Note; NOTES: [facility] Imaging Services [address] [place] [address] Verdana 4d Chest 1 View (Portable) MR#: [id number] Acct: [id number] Name: MANDY MONTERO Rep #: [id number] : 1990 F 26 From: Mandy Chávez MD PCP: Sandra Bermudez DO Status: PRE ER Study: Chest 1 View (Portable) Date of Exam: 09/10/16 Exam# [id number] Ordering Dr: Vinnie Sher MD STUDY: X-RAY [...] MD at 23:49 EST , Service support [phone], CC: Linden Sher MD; Sandra Bermudez DO Gold Nib Grinder: Signed 12-Mar-2016 Emergency Department Summary Result: Comments: See Note; NOTES: [facility] Medical Records Department [address] [place] [address] Emergency Department Summary MR#: [id number] Acct: [id number] Name: MANDY MONTERO Rep #: [id number] : 1990 25 From: Joseph Mcgee MD [...] Jewel Baxter T: JENNIFER JOB: [id number] 06/30/16 0008 <Electronically signed by Joseph Mcgee MD> Date Joseph Mcgee MD Cosigner Signature (If Indicated): Date _ CC: Jewel Baxter; Roe Baxter Date Dictated: 02/29/16112 Date Transcribed: 02/29/16112 Gold Nib Grinder: Signed 28-Feb-2016 Discharge Instruction Result: Comments: See Note; NOTES: [facility] Medical Records Department [address] [address] Discharge Instruction 02/28/161925 MR#: [id number] Acct: [id number] Name: MANDY MONTERO Rep #: [id number] : 1990 25 From: Joseph Mcgee MD [...] problems, contact your doctor. Call [facility] ([phone]) or report to the closest Emergency Room. Call 911 if necessary. 224 <Electronically signed by Joseph Mcgee MD> Date Joseph Mcgee MD Cosigner Signature (If Indicated): Date ___ CC: Roe Baxter 28-Feb-2016 Abdomen/Pelvis without Cont Result: Comments: See Note; NOTES: [facility] Imaging Services [address] [place] [address] Haleydalisa 4d Abdomen/Pelvis without Cont MR#: [id number] Acct: [id number] Name: MANDY MONTERO Rep #: [id number] : 1990 F 25 From: Seymour Villagomez MD PCP: Roe Baxter Status: REG ER Study: Abdomen/Pelvis without Cont Date of Exam: 02/28/16 Exam# [id number] Ordering Dr: Joseph Patton MD STUDY: CT [...] MD at 18:47 EDT , Service support [phone], CC: Roe Baxter; Joseph Mcgee MD Gold Nib Grinder: Signed 25-Feb-2016 Emergency Department Summary Result: Comments: See Note; NOTES: [facility] Medical Records Department [address] [place] [address] Emergency Department Summary MR#: [id number] Acct: [id number] Name: MANDY MONTERO Rep #: [id number] : 1990 From: Tomás Willis MD PCP: [...] C: Roe Baxter MD T: JENNIFER JOB: [id number] 02/25/16 1517 <Electronically signed by Tomás Willis MD> Date Tomás Willis MD Cosigner Signature (If Indicated): Date CC: Roe Baxter Date Dictated: 02/23/16 152 Date Transcribed: 02/23/161520 Gold Nib Grinder: Signed 23-Feb-2016 Discharge Instruction Result: Comments: See Note; NOTES: [facility] Medical Records Department [address] [facility] [place] [address] Discharge Instruction 02/23/16 1514 MR#: [id number] Acct: [id number] Name: MANDY MONTERO Rep #: [id number] : 1990 From: Tomás Willis MD PCP: Roe Baxter Status: REG ER ED Disposition - Plan for ED Patient: Disposition: Home or Assisted Living Chief C omplaint: Rash Instructions: ED Theresa Skin Infection (Adult) Prescriptions: Fluconazole [Diflucan] 100 mg PO DAILY #7 tablet Nystatin [Mycostatin] 1 applic TOPICAL TID #1 tube Referrals: Lisa Baxter [Primary Care Provider] - 2 Days Additional Instructions: follow up with your doctor. return with problems. What to do if you have Problems For any increased pain, shortness of breath, blee ding, nausea or vomiting, chest pain, or any unexpected problems, contact your doctor. Call Doctors Registry ([phone]) or report to the closest Emergency Room. Call 911 if necessary. [phone] <Electronically signed by Tomás Willis MD> Date Tomás Willis MD Cosigner Signature (If Indicated): Date CC: Roe Baxter 28-Jan-2016 Chest 1 View (Portable) Result: Comments: See Note; NOTES: [facility] Imaging Services [address] [place] [address] Verdana 4d Chest 1 View (Portable) MR#: [id number] Acct: [id number] Name: MANDY ACUNA Rep #: [id number] : 1990 F 25 From: Abdirahman Awad MD PCP: Linda Houston MD Status: PRE ER Study: Chest 1 View (Portable) Date of Exam: 01/28/16 Exam# [id number] Ordering Dr: Edita Willis MD STUDY: X-RAY [...] MD at 22:53 EDT , Service support [phone], RAD/Chest 1 View (Portable) IMPRESSION: Retrocar diac density in left lower lobe possibly representing atelectasis or infiltrate. Recommend lateral view for further assessment Electronically Signed: Abdirahman Awad MD at 22:53 EDT , Service support [phone], CC: Linda Houston MD; Tomás Willis MD Gold Nib Grinder: Signed Family History Unknown Family Member Name [...] Arm; Cuff Size: Standard Weight 87 lb 5-Rwr-527712:54 Pulse 86 /min Comments: Pattern: Regular Respiration Rate 16 /min Comments: Pattern: Unlabored BP Systolic 140 mm[Hg] Comments: Patient Position: Sitting; Cuff Location: Left Arm; Cuff Size: Standard BP Diastolic 110 mm[Hg] Comments: Patient Position: Sitting; Cuff Location: Left Arm; Cuff Size: Standard Weight 80 lb Height 0 in Head Circumference 0.00 cm Results Date Description Value Details :37 TSH (14446) Comments: PATIENT NOT FASTINGPERFORMED BY: Cocodrilo DogChinle Comprehensive Health Care FacilityLrtxpb3907 [facility] [id number] BY: [place]Later[place] [id number] TSH 1.030 {uIU/mL} (Normal) Range: 0.450-4.500 43-Fxg-198365:37 T4, FREE (THYROXINE) Comments: PATIENT NOT FASTINGPERFORMED BY: Cocodrilo Dog [address] [place] [address] [id number] BY: [address]Day[address] [id number] ([address]) T4,Free(Direct) 0.84 ng/dL (Normal) Range: 0.82-1.77 04-Dqg-995580:37 T3, FREE (TRIDOTHYRONINE) Comments: PATIENT NOT FASTINGPERFORMED BY: Cocodrilo Dog[address] [id number] BY: [place] [id number] (79[address]) Triiodothyronine (T3), Free 2.6 pg/mL (Normal) Range: 2.0-4.4 :37 CALCIFIDIOL (29364) VIT D Comments: PATIENT NOT FASTINGPERFORMED BY: [facility] Zuxepv1043 [facility] [id number] BY: [address] [id number] 25 Vitamin D, 25-Hydroxy 42.6 ng/mL (Normal) Range: 30.0-100.0 Comments: Vitamin D deficiency has been defined by the [place] ofCommunity Regional Medical Centercine and an Endocrine Society practice guideline as alevel of serum 25-OH vitamin D less than 20 ng/mL (1,2).The Endocrine Society went on to further define vitamin Dinsufficiency as a level between 21 and 29 ng/mL (2).1. IOM ([place] of Medicine). 2010. Dietary reference intakes for calcium and D. [place]: The National Academies Press.2. Gabbi MF, Singh MCKEON, Pollo JOSEPH, et al. Evaluation, treatment, and prevention of vitamin D deficiency: an Endocrine Society clinical practice guideline. JCEM. 2010; 96(7):1911-30. 49-Cvl-654484:37 TRILEPTAL-OXCARBAZEPINE 705448 Comments: send results to dr delgado too; PATIENT NOT FASTINGPERFORMED BY: Rankomat.pllin6370 [facility] [id number] BY: Cocodrilo Dog[address] [id number] ([address]) Oxcarbazepine 49 ug/mL (Abnormal) Range: 10-35 Comments: Detection Limit = 1 43-Bxq-282343:37 CBC with auto diff Comments: send results to dr delgado too; PATIENT NOT FASTINGPERFORMED BY: [place] DogTammy Ville 9062370 [facility] [id number] BY: [address] [id number] ([address]) Immature Grans (Abs) 0.0 {x10E3/uL} (Normal) Range: [...] 3.77-5.28 WBC 6.3 {x10E3/uL} (Normal) Range: 3.4-10.8 09-Ckf-527564:37 METABOLIC PANEL, Comments: send results to dr delgado too; PATIENT NOT FASTINGPERFORMED BY: CB [facility] Bnfquz8986 [facility] [id number] BY: BN [facility] [address] [id number] [facility] ([address]) ALT (SGPT) 38 [iU]/L (Abnormal) Range: 0-32 [...] 6-20 Glucose 237 mg/dL (Abnormal) Range: 65-99 32-Rpt-587899:37 HGB A1C (91920) Comments: PATIENT NOT FASTINGPERFORMED BY: CB [facility] Wioyvb5782 [facility] [id number] BY: BN [facility] Xrrytbompq9509 [facility] [id number] Hemoglobin A1c 6.3 % (Abnormal) Range: 4.8-5.6 Comments: . Prediabetes: 5.7 - 6.4 Diabetes: >6.4 Glycemic control for adults with diabetes: <7.0 78-Xpu-959892:00 Urinalysis, Complete Comments: How was Urine Obtained? [facility] SPECIMENWReg[facility] [address] [place], [place], [id number] MUCUS, URINE 0 SEEN {/hpf} (Normal) BACTERIA [...] (Abnormal) CLARITY Clear (Normal) COLOR Yellow (Normal) 97-Qaw-458072:50 Basic Metabolic Profile (BMP) Comments: [facility] [address] [place], [place], [address] GAP 8 (Normal) Range: 5-15 CO2 28.0 [...] A.D.A. criteria.Please note revised GLUCOSE reference range dmzpmgsji13/02/2018. 64-Rbx-366647:50 CBC W/Diff, Automated Comments: [facility] [address] [place], [place], [address] Absolute Lymph 1.52 {X10_3/ul} (Normal) Range: 0.83-4.51 [...] 4.2-5.4 WBC 6.0 K/mm3 (Normal) Range: 4.4-11.0 88-Wqt-94496:00 Lactic Acid Comments: Yes/No query for Sepsis Lactate Rule [facility] [address] [place], [place], [address] LACTIC ACID 2.0 mmol/L (Normal) Range: 0.4-2.0 Comments: Critical Result(s) Called at: 18:33:30 01/24/2018 by:Yohana saenz [facility] 32-Xsp-169731:39 TSH (94763) Comments: PATIENT NOT FASTINGPERFORMED BY: CB [facility] Flvakr9232 [facility] [id number] BY: BN [facility] [address] [id number] TSH 1.150 {uIU/mL} (Normal) Range: 0.450-4.500 19-Mbn-112532:39 METABOLIC PANEL, Comments: PATIENT NOT FASTINGPERFORMED BY: Cocodrilo DogAstra Health CenterQkdygz1831 [facility] [id number] BY: Cocodrilo Dog[address] [id number] COMPREHENSIVE (13036) ALT (SGPT) 18 [iU]/L (Normal) Range: 0-32 [...] Glucose, Serum 138 mg/dL (Abnormal) Range: 65-99 75-Ewe-733134:39 CBC W/AUTO DIFF WBC Comments: PATIENT NOT FASTINGPERFORMED BY: [place] DogTammy [place] 9062370 [facility] [id number] BY: Cocodrilo [address] [id number] (11737) Immature Grans (Abs) 0.0 {x10E3/uL} (Normal) Range: [...] 3.77-5.28 WBC 6.6 {x10E3/uL} (Normal) Range: 3.4-10.8 11-Qgp-049639:39 TRILEPTAL-OXCARBAZEPINE 835317 Comments: PATIENT NOT FASTINGPERFORMED BY: [facility] Wkdmql6171 [facility] [id number] BY: [facility] [address] [id number] (28501) Oxcarbazepine 28 ug/mL (Normal) Range: 10-35 Comments: Detection Limit = 1 78-Qlm-128219:39 CALCIFIDIOL (06670) VIT D Comments: PATIENT NOT FASTINGPERFORMED BY: Cocodrilo Dog Wzpxob5404 [facility] [id number] BY: Cocodrilo [address] [id number] 25 Vitamin D, 25-Hydroxy 56.3 ng/mL (Normal) Range: 30.0-100.0 Comments: Vitamin D deficiency has been defined by the [place] ofMedicine and an Endocrine Society practice guideline as alevel of serum 25-OH vitamin D less than 20 ng/mL (1,2).The Endocrine Society went on to further define vitamin Dinsufficiency as a level between 21 and 29 ng/mL (2).1. IOM ([place] of Medicine). 2010. Dietary reference intakes for calcium and D. [place]: The National Academies Press.2. Gabbi MF, Singh [place], Pollo JOSEPH, et al. Evaluation, treatment, and prevention of vitamin D deficiency: an Endocrine Society clinical practice guideline. JCEM. 2010; 96(7):1911-30. 09-Izp-058525:39 HGB A1C (77429) Comments: PATIENT NOT FASTINGPERFORMED BY: Cocodrilo Dog Qlxkpn9426 [facility] [id number] BY: Cocodrilo [address] [id number] Hemoglobin A1c 5.7 % (Abnormal) Range: 4.8-5.6 Comments: . Pre-diabetes: 5.7 - 6.4 Diabetes: >6.4 Glycemic control for adults with diabetes: <7.0 20-Apr-20174:11 THROAT CULTURE (86472) Comments: PATIENT NOT FASTINGPERFORMED BY: Cocodrilo Dog Jtgrcl2440 [facility] [id number] Information: SRC:TH Result 1 RRF (Normal) Comments: Routine respiratory jasper Upper Respiratory Culture Final report (Normal) 85-Txn-658573:35 CBC W/Diff, Automated Comments: [facility] [address] [place], [address] Absolute Lymph 1.23 {X10_3/ul} (Normal) Range: 0.83-4.51 [...] 4.2-5.4 WBC 4.9 K/mm3 (Normal) Range: 4.4-11.0 18-Hws-475529:35 CRP Comments: [facility] [address] [place], [place], [address] C-REACTIVE PROT < 2.90 mg/L (Normal) Range: 0.0-3.0 Comments: C-Reactive Protein (CRP) provides useful information for thediagnosis, therapy and monitoring of inflammatory processesand associated diseases. For the evaluation of Relative Riskfor Cardiovascular Dise ase, a High Sensitivity CRP (HSCRP)should be ordered. 8-Wpi-313729:15 Culture, Nose Comments: [facility] [address] [place], [address] CUN See Note (Normal) Comments: Comments: THICK [...] $ <=20 S(NF) indicates non-formulary drug at [facility]. Ap proval by Infectious Disease Specialist required before non-formulary drugs may be ordered and/or dispensed. Pseudomonas aeroginosa: REACTION Cefepime $ <=1 S Ceftazidime *NF 2 S Ciprofloxacin $ 2 I Gentamicin $ <=1 S Imipenem *NF 1 S Levofloxacin $ 4 I Piperacillin/Tazobactam $$ 8 S Tobramycin $ <=1 S(NF) rocky cates non-formulary drug at [facility]. Approval by Infectious Disease Specialist required before non-formulary drugs may be ordered and/or dispensed. 95-Srt-147694:34 LIPID PANEL (70120) Comments: PATIENT NOT FASTINGPERFORMED BY: [facility] Fxbyjg9527 [facility] [id number] BY: [facility] [address] [id number] LDL/HDL Ratio 1.5 {ratio_units} (Normal) Range: 0.0-3.2 Comments: LDL/HDL Ratio Men Women 1/2 Avg.Risk 1.0 1.5 Av g.Risk 3.6 3.2 2X Avg.Risk 6.2 5.0 3X Avg.Risk 8.0 6.1 LDL Cholesterol Calc 76 mg/dL (Normal) Range: 0-99 VLDL Cholesterol Dirk 17 mg/dL (Normal) Range: 5-40 HDL Cholesterol 50 mg/dL (Normal) Triglycerides 84 mg/dL (Normal) Range: 0-149 Cholesterol, Total 143 mg/dL (Normal) Range: 100-199 70-Ikh-443838:34 METABOLIC PANEL, Comments: PATIENT NOT FASTINGPERFORMED BY: Teamly70 [facility] [id number] BY: Cocodrilo Dog[address] [id number] [facility] ([address]) ALT (SGPT) 20 [iU]/L (Normal) Range: 0-32 [...] Glucose, Serum 137 mg/dL (Abnormal) Range: 65-99 01-Lsg-451763:34 CBC with auto diff Comments: PATIENT NOT FASTINGPERFORMED BY: Teamly70 [facility] [id number] BY: Cocodrilo [address] [id number] ([address]) Immature Grans (Abs) 0.0 {x10E3/uL} (Normal) Range: [...] 3.77-5.28 WBC 4.5 {x10E3/uL} (Normal) Range: 3.4-10.8 56-Lse-829782:34 TRILEPTAL-OXCARBAZEPINE [id number] Comments: PATIENT NOT FASTINGPERFORMED BY: [facility] Nkglgg9614 [facility] [id number] BY: [facility] [id number] ([address]) Oxcarbazepine 23 ug/mL (Normal) Range: 10-35 Comments: Detection Limit = 1 02-Dro-298306:34 HGB A1C (75079) Comments: PATIENT NOT FASTINGPERFORMED BY: [facility] Aeiqmm9287 [facility] [id number] BY: LabCoL[place] 434697 [facility] [id number] Hemoglobin A1c 6.1 % (Abnormal) Range: 4.8-5.6 Comments: . Pre-diabetes: 5.7 - 6.4 Diabetes: >6.4 Glycemic control for adults with diabetes: <7.0 68-Kha-166684:34 CALCIFIDIOL (02904) VIT D Comments: PATIENT NOT FASTINGPERFORMED BY: [facility] Hposha5647 [facility] [id number] BY: [facility] Llkjhphcpi4085 [facility] [id number] 25 Vitamin D, 25-Hydroxy 49.1 ng/mL (Normal) Range: 30.0-100.0 Comments: Vitamin D deficiency has been defined by the [place] ofMedicine and an Endocrine Society practice guideline as alevel of serum 25-OH vitamin D less than 20 ng/mL (1,2).The Endocrine Society went on to further define vitamin Dinsufficiency as a level between 21 and 29 ng/mL (2).1. IOM ([place] of Medicine). 2010. Dietary reference intakes for calcium and D. [place]: The National Academies Press.2. Gabbi MF, Singh NC, Pollo JOSEPH, et al. Evaluation, treatment, and prevention of vitamin D deficiency: an Endocrine Society clinical practice guideline. JCEM. 2010; 96(7):1911-30. 60-Dlg-967986:15 Culture, Throat Comments: [facility] [address]oxzp[address] [place], [place], [id number] CUT See Note (Normal) Comments: Culture, ThroatMixed normal respiratory jasper. No Haemophilus, Streptococcus pneumoniae, beta-hemolytic Streptococcus or Staphylococcus aureus isolated. Copy of report sent to Infection Control Pr inter [id number] 01/04/17 1408 NSTANSBEAUS. ORGANISM 1: Serratia marcescensAmount Growth 1+ Serratia marcescens: REACTION Amoxacillin/Clavulanic Acid $ >=32 R Cefazolin $ >=64 R Cefepime $ <=1 S Ceftriaxone $ <=1 S Ciprofloxacin $ <=0.25 S Ertapenim $$$ <=0.5 S Gentamicin $ <=1 S Levofloxacin $ 0.5 S Tobramycin $ <=1 S Trimethoprim/Sulfametho $ <=20 S(NF) indicates non-formulary drug at [facility]. Approval by Infec tious Disease Specialist required before non-formulary drugs may be ordered and/or dispensed. 47-Fys-33966:30 Culture, Wound Comments: [facility] Fisddbqahv[address] [place], [address] CUW See Note (Normal) Comments: Comments: COLLECTED FROM TRACHEA STOMA/DX THICK SPUTUMGram StainGram Stain No organisms seen Wound CultureNo Haemophilus, Streptococcus pneumoniae, beta-hemolytic Streptococcus or Staphylococcus aureu s isolated. Copy of report sent to Infection Control Printer [id number] 12/09/16 0396 DCANNON. ORGANISM 1: Serratia marcescensAmount Growth 1+ [...] $ <=20 S(NF) indicates non-formulary drug at [facility]. Approval by Infectious Disease Specialist required before non-formulary drugs may be ordered and/or dispensed. Pseudomonas aeroginosa: REACTION Cefepime $ <=1 S Ceftazidime *NF <=1 S Ciprofloxacin $ 0.5 S Gentamicin $ <=1 S Imipenem *NF 1 S Levofloxacin $ 1 S Piperacillin/Tazobactam $$ 8 S Tobramycin $ <=1 S(NF) indicates non-formulary drug at [facility]. Approval b y Infectious Disease Specialist required before non-formulary drugs may be ordered and/or dispensed. :37 Base Excess ISTAT Comments: [place] [address] [place] [address] BE ISTAT 6 mmol/L (Abnormal) 16-Asa-296619:37 Bicarbonate ISTAT Comments: [place] [address] [place] [address] HCO3 ISTAT 30 mmol/L (Abnormal) Range: 22-26 Comments: Site = R BrachialAllens Test = NAMode = A-CDevice = VentFIO2 = 40Results To = ED MDTime Given = 2350MV = 4.5VT = 250RR = 21PEEP = 7 :37 Blood Gas Specimen Type Comments: [place] [address] [place], [place] [address] BLD GAS TYPE ART (Normal) 46-Qav-484535:37 pCO2 - ISTAT 40.0 {mmHg} (Normal) Comments: [place] [address] [place] [address] Range: 35-45 08-Ooz-700397:37 pH - I-STAT 7.48 (Abnormal) Comments: [place] [address] [place] [address] Range: 7.35-7.45 70-Aam-276380:37 PO2 I-STAT 65 {mmHG} (Abnormal) Comments: [place] [address] [place] [id number] Range: 75-100 72-Oux-252456:37 SO2 ISTAT 94 % (Abnormal) Comments: [place] [address] [place] [address] Range: 95-99 00-Hxd-599388:37 Total Carbon Dioxide ISTAT Comments: [facility] LaboratoryPoint of Tlkq[address] [place] [address] TOTAL CO2 ISTAT 31 mmol/L (Normal) 72-Ydp-835297:55 Basic Metabolic Profile (BMP) Comments: [facility] [address]jlw38[address] [place], [address] GAP 5 (Normal) Range: 5-15 CO2 [...] Range: 70-110 :55 CBC W/Diff, Automated Comments: [facility] [address]purn51[address] [place], [address] Absolute Lymph 1.51 {X10_3/ul} (Normal) Range: [...] 4.2-5.4 WBC 4.6 K/mm3 (Normal) Range: 4.4-11.0 4-Uyf-618019:52 Anaerobic and Aerobic Comments: PERFORMED BY: [facility]6370 [facility] [id number] Information: buttock SRC:WO Culture Antimicrobial MIHEAD (Normal) [...] 72 hours. Anaerobic Culture Final report (Normal) 8-Gkr-586351:39 CBC With Differential/Platelet Comments: PERFORMED BY: CB [facility] Creqqy0817 [facility] [id number] BY: BN [facility] [address] [id number] Immature Grans (Abs) 0.0 {x10E3/uL} (Normal) Range: [...] :39 Comp. Metabolic Panel Comments: PERFORMED BY: HARRIET N4270 [facility] [id number] BY: LabCoL[place] 434697 [facility] [id number] (14) ALT (SGPT) 27 [iU]/L (Normal) Range: [...] 65-99 :39 Oxcarbazepine (Trileptal),S Comments: PERFORMED BY: CB Trippy Bandz [facility] [id number] BY: [address] [id number] Oxcarbazepine 24 ug/mL (Normal) Range: 10-35 Comments: Detection Limit = 1 :39 TSH 1.640 {uIU/mL} Comments: PERFORMED BY: [place] 1160470 [facility] [id number] BY: [address] [id number] (Normal) Range: 0.450-4.500 :39 Vitamin B12 and Folate Comments: PERFORMED BY: [place] 1160470 [facility] [id number] BY: [address] [id number] Folate (Folic Acid), 8.0 ng/mL (Normal) Comments: A serum folate concentration of less than 3.1 ng/mL isconsidered to represent clinical deficiency. Serum Vitamin B12 1048 pg/mL Range: 211-946 (Abnormal) : Vitamin D, 40.7 ng/mL (Normal) Comments: PERFORMED BY: [place] 1160470 [facility] [id number] BY: [address] [id number] 39 25-Hydroxy Range: 30.0-100.0 Comments: Vitamin D deficiency has been defined by the [place] ofMedicine and an Endocrine Society practice guideline as alevel of serum 25-OH vitamin D less than 20 ng/mL (1,2).The Endocrine Society went on to further define vitamin Dinsufficiency as a level between 21 and 29 ng/mL (2).1. IOM ([place] of Medicine). 2010. Dietary reference intakes for calcium and D. [place]: The National Academies Press.2. Gabbi MF, Singh NC, Pollo JOESPH, et al. Evaluation, treatment, and prevention of vitamin D deficiency: an Endocrine Society clinical practice guideline. JCEM. 2010; 96(7):1911-30. 94-Vxu-377057:00 Urinalysis, Complete Comments: Order Date: 02/28/16How was Urine Obtained? [facility] Dilhewdqfw9[address] [place], [place], [id number] MUCUS, URINE RARE {/hpf} (Normal) BACTERIA 0 [...] CLARITY Sl. Cloudy (Normal) COLOR Yellow (Normal) 78-Wdb-259374:00 Basic Metabolic Profile (BMP) Comments: [facility] Bqiygtbicd[address] [place], [place], [address] GAP 8 (Normal) Range: 5-15 CO2 26.0 [...] 7-18 GLU 84 mg/dL (Normal) Range: 70-110 20-Byc-495550:00 CBC W/Diff, Automated Comments: [facility] Oivtoxyskx[address] [place], [place], [address] Absolute Lymph 1.11 {X10_3/ul} (Normal) Range: 0.83-4.51 [...] 4.2-5.4 WBC 5.5 K/mm3 (Normal) Range: 4.4-11.0 90-Sws-879656:00 Lactic Acid Comments: [facility] Ajatanzxlc2294 [place], [address] LACTIC ACID 1.6 mmol/L (Normal) Range: 0.4-2.0 69-Zkw-775121:00 Lipase Comments: [address] [place], [address] LIPASE 177 U/L (Normal) Range: 73-393 24-Yfy-619962:00 Liver Profile Comments: [address] [place], [address] D BILI 0.08 mg/dL (Normal) Range: [...] (Normal) Range: 6.4-8.2 :30 CDIFF (Molecular) Comments: [address] [place], [address] CDIFF See Note (Normal) Comments: Cdiff-MolecularC. Diff DNA Negative- No toxigenic C. Diff DNA Detected :30 ENTERIC PATHOGEN PANEL STOOL Comments: [address] [place], [address] EP PANEL See Note (Normal) Comments: [...] DetectedRotavirus Not Detected :30 Stool Lactoferrin/WBC Comments: [facility] [address]jtsynf[address] [place], [address] WBCST See Note (Normal) Comments: Stool Lacto/WBCFecal WBC Lactoferrin Negative: No Fecal WBC Lactoferrin present :30 Stool Occult Blood iFOB Comments: [address] [place], [address] STOB See Note (Normal) Comments: STOB iFOBOccult Blood Negative 49-Qwn-116093:35 Urinalysis, Complete Comments: How was Urine Obtained? CATHETER SPECIMENW[address], [address] MUCUS, URINE 0 SEEN {/hpf} [...] (Normal) CLARITY Cloudy (Normal) COLOR Yellow (Normal) 81-Nkp-810946:00 CBC W/Diff, Automated Comments: [facility] Kehtojvred[address] [place], [address] SMEAR COMMENT SCANNED (Normal) Comments: [...] 4.2-5.4 WBC 6.8 K/mm3 (Normal) Range: 4.4-11.0 51-Fzb-880628:00 Comprehensive Metabolic Profil Comments: [facility] Qdqgooobmm0915 [place], [address] GAP 9 (Normal) Range: 5-15 CO2 29.0 [...] 7-18 GLU 84 mg/dL (Normal) Range: 70-110 25-Dno-029773:00 Lactic Acid Comments: [facility] Jphcwtrohe6[address] [place], [address] LACTIC ACID 2.6 mmol/L (Abnormal) Range: 0.4-2.0 08-Gbn-044474:00 Partial Thromboplast Time Comments: [facility] [address]weu[address] [place], [address] PTT 26.7 s (Normal) Range: 24.1-36.2 99-Dnk-780572:00 Prothrombin Time w/INR Comments: [facility] Ihurqinkfp6116 [address] [place], [place], [address] INR 1.0 (Normal) PROTIME 13.1 s (Normal) Range: 11.7-14.9 20-Jan-20161:25 PREALBUMIN (15781) Comments: PERFORMED BY: [facility] Vaanve4191 [facility] [id number] Prealbumin 27 mg/dL (Normal) Range: 9-31 Comments: [...] - 36 >70 years 9 - 32 96-Ynv-083877:16 Clostridium difficile Toxin Comments: PERFORMED BY: LabCoAstra Health CenterDmtqno9504 [facility] [id number] A+B, EIA (66057) C difficile Toxins A+B, EIA Negative (Normal) 38-Epo-252094:00 Culture, Urine Comments: [facility] Axgucksoqp67[address] [place], [address] CUUR See Note (Normal) Comments: Urine CultureCulture exhibits no growth. 45-Ztk-971653:00 Urinalysis, Complete Comments: How was Urine Obtained? CLEAN [facility] Njjgjvvmia7072 [place], [address] MUCUS, URINE 0 SEEN {/hpf} [...] CLARITY Sl. Cloudy (Normal) COLOR Yellow (Normal) 96-Vaf-894523:30 Culture, Urine Comments: [facility] Wyviqpdnhp2032 [place], [address] CUUR See Note (Normal) Comments: Urine CultureORGANISM 1: Enterococcus faecalisColony Count >100,000 Enterococcus faecalis: REACTION Ampicillin $ <=2 S Benzylpenicillin NF 2 S Ciprofloxacin $ <=0.5 S Gentamicin SYN-S S Levofloxacin $ 1 S Linezolid $$$$ 2 S Nitrofurantoin $ <=16 S Streptomycin $ SYN- S S Tetracycline NF >=16 R Vancomycin $ 1 S(NF) indicates non-formulary drug at [facility]. Approval by Infectious Disease Specialist required before non-formulary drugs may be ordered and/or dispensed. * CLSI guidelines does not recommend testing of cephalosporins. This interpretation is deduced from Beta-lactam/penicillin results. 12-Omo-466440:30 Urinalysis, Complete Comments: How was Urine Obtained? Urine, [facility] Fqiodxslnl9944 [facility] [place], [address] MUCUS, URINE 0 SEEN {/hpf} [...] CLARITY Sl. Cloudy (Normal) COLOR Yellow (Normal) 87-Ctb-451801:00 ENTERIC PATHOGEN PANEL STOOL Comments: [facility] Lxiygefzyc3826 [facility] [place], [place], [id number] EP PANEL See Note (Normal) Comments: RESULTS CALLED TO DR. HOUSTON 09/10/15 @1953 BY [facility].EP PANEL STOOLNot detected for Campylobacter group, Salmonella [...] DetectedVIBRIO Not DetectedNorovirus Not DetectedRotavirus Not Detected 97-Svv-639172:00 Stool Lactoferrin/WBC Comments: [facility] Sah[address]udjxp[address] [place], [place], [address] WBCST See Note (Normal) Comments: RESULTS CALLED TO DR. HOUSTON 09/10/15 @1952 BY THADDEUS.Stool Lacto/WBCFecal WBC Lactoferrin Negative: No Fecal WBC Lactoferrin present 06-Pvh-756774:00 Stool Occult Blood iFOB Comments: [facility] Heyrvaaykm4[address] [place], [place], [address] STOB See Note (Normal) Comments: RESULTS CALLED TO DR. HOUSTON 09/10/15 @1952 BY THADDEUS.STOB iFOBOccult Blood Negative :29 CBC with auto diff Comments: PERFORMED BY: [facility] Lcmbyl1244 [facility] [id number] BY: [facility] [address] [id number] ([address]) Immature Grans (Abs) 0.0 {x10E3/uL} (Normal) Range: [...] METABOLIC PANEL, Comments: PERFORMED BY: CB [facility] Lsvjzn6749 [facility] [id number] BY: BN [facility] [address] [id number] COMPREHENSIVE (27490) ALT (SGPT) 17 [iU]/L (Normal) Range: 0-32 [...] 73 mg/dL (Normal) Range: 65-99 :29 CALCIFIDIOL (03116) VIT D Comments: PERFORMED BY: [employer] [facility] [id number] BY: Cocodrilo [address] [id number] 25 Vitamin D, 25-Hydroxy 39.5 ng/mL (Normal) Range: 30.0-100.0 Comments: Vitamin D deficiency has been defined by the [place] of[place]icine and an Endocrine Society practice guideline as alevel of serum 25-OH vitamin D less than 20 ng/mL (1,2).The Endocrine Society went on to further define vitamin Dinsufficiency as a level between 21 and 29 ng/mL (2).1. IOM ([place] of Medicine). 2010. Dietary reference intakes for calcium and D. [place]: The National Academies Press.2. Gabbi MF, Singh [place], Pollo JOSEPH, et al. Evaluation, treatment, and prevention of vitamin D deficiency: an Endocrine Society clinical practice guideline. JCEM. 2010; 96(7):1911-30. :29 TRILEPTAL-OXCARBAZEPINE 090787 Comments: PERFORMED BY: [employer] [facility] [id number] BY: Cocodrilo [address] [id number] ([address]) Oxcarbazepine 38 ug/mL (Abnormal) Range: 10-35 Comments: Detection Limit = 1 82-Vuq-720150:30 CBC W/Diff, Automated Comments: [facility] Wlfkfymalt17[address] [place], [place], [address] Absolute Lymph 0.90 {X10_3/ul} (Normal) Range: 0.83-4.51 [...] 4.2-5.4 WBC 5.2 K/mm3 (Normal) Range: 4.4-11.0 79-Mdw-973177:30 Comprehensive Metabolic Profil Comments: [facility] Jdadicwgkj80[address] [place], [place], [address] GAP 8 (Normal) Range: 5-15 CO2 26.0 [...] 200 mg/dLsuggests DIABETES MELLITUS per A.D.A. criteria. 92-Ide-824415:30 Lipid Profile Comments: [facility] G[address]gljmkbos[address] [place], [place], [address] VLDL 38 mg/dL (Normal) Range: 5-40 LDL [...] 200-240 mg/dL Borderline >240 mg/dL High Risk 21-Acm-836081:30 Prealbumin Comments: [facility] Tdxmcfwjau2301 [place], [address] PREALBUMIN 26.0 mg/dL (Normal) Range: 20.0-40.0 24-Ckw-985126:30 Thyroid Stim Hormone (TSH) Comments: [facility] [address]soyqnjzk9912 [place], [address] TSH 1.02 {uIU/mL} (Normal) Range: 0.358-3.74 10-Wtt-435594:30 Trileptal-Oxcarbazepine Comments: [facility] (refer to report for specific site)refer to report for address and phone number TRILEPT [id number] 38 ug/mL (Abnormal) Range: 10-35 Comments: Detection Limit = 1Performed at: [facility] Lab[address] [id number] Director: Reji Gibson MD, Phone: [phone] 57-Qks-789398:30 Vitamin D,25 Hydroxy Comments: [facility] [address]rencc[address] [place], [address] Vitamin D 25-OH 38.4 ng/mL (Normal) Comments: Vitamin D 25(OH) Status Range Deficiency <20 ng/mL (50nmol/L) Insuffciency 20 - 30 ng/mL (50 - 75 nmol/L) Sufficiency 30 - 100 ng/mL (75 - 250 nmol/L) Toxicity >100 ng/mL (>250 nmol/L) 1-Cqm-549922:45 CBC-Complete Blood Cnt No Diff Comments: Test performed at:[facility] J[address]vcrgffy26[address] [place] [address] MPV 10.5 fL (Normal) Range: 6.2-12.0 [...] 4.2-5.4 WBC 6.3 K/mm3 (Normal) Range: 4.4-11.0 :45 Comprehensive Metabolic Profil Comments: Is Patient Taking Vitamins or Folic Acid Supplements? NTest performed at:[facility] Ixzswdqcsh[address] [place], [place] [address] GAP 7 (Normal) Range: 5-15 CO2 29.0 [...] <126 mg/dLsuggests IMPAIRED HOMEOSTASIS per A.D.A. criteria. 7-Osx-863318:45 CRP Comments: Is Patient Taking Vitamins or Folic Acid Supplements? NTest performed at:[facility] [address] [place] [address] C-REACTIVE PROT < 2.90 mg/L (Normal) Range: 0.0-3.0 Comments: C-Reactive Protein (CRP) provides useful information for thediagnosis, therapy and monitoring of inflammatory processesand associated diseases. For the evaluation of Relative Riskfor Cardiovascular Dise ase, a High Sensitivity CRP (HSCRP)should be ordered. :45 Erythrocyte Sed Rate Comments: Test performed at:[facility] [address]ndqu[address] [place] [address] SED RATE 13 mm/h (Normal) Range: 0-20 :45 Folates, (Folic Acid) Comments: Is Patient Taking Vitamins or Folic Acid Supplements? NTest performed at:[facility] [address] [place] [address] FOLATES 15.70 ng/mL (Normal) Range: 3.1-17.5 :45 Free T3 Comments: Is Patient Taking Vitamins or Folic Acid Supplements? NTest performed at:[facility] [address]hp[address] [place] [address] FREE T3 2.4 pg/mL (Normal) Range: 2.18-3.98 :45 Miscellaneous Lab Procedure Comments: Test(s) Ordered: OXCARBAZEPINE, LC#[id number], RED TOP SERUM/RFTest performed at:[address] [place] [address] MIS Comments: Oxcarbazepine (Trileptal), S Oxcarbazepine 35 ug/mL Ref: Detection Limit=1 TESTING PERFOR MED AT [facility] (Normal) rp. ORIGINAL REPORT ON FILE IN LAB CONTAINS ADDITIONAL TEST SITE INFORMATION. TEST :45 Prealbumin Comments: Is Patient Taking Vitamins or Folic Acid Supplements? NTest performed at:[facility] [address] [place] [address] PREALBUMIN 30.9 mg/dL (Normal) Range: 20.0-40.0 :45 ,Serum,hCG Quali. Comments: Test performed at:[facility] [address] [place] [address] HCGSQUAL NEGATIVE {Negative} (Normal) Range: 0-9 Nonpreg HCG Qual triggr < 1 m[iU]/mL (Normal) :45 Prolactin Comments: Is Patient Taking Vitamins or Folic Acid Supplements? NTest performed at:[facility] [address] [place], [place] [address] PROLACTIN 9.5 ng/mL (Normal) Comments: NORMAL REFERENCE RANGES FEMALE NON- 2.2 - 30.3 ng/mL 8.1 - 347.6 ng/mL POST-MENOPAUSAL 0.7 - 3 1.5 ng/mL MALE 2.5 - 17.4 ng/mLNEW TEST METHOD AND REFERENCE RANGES FEBRUARY 01, 2012:45 T4 Free Direct Comments: Is Patient Taking Vitamins or Folic Acid Supplements? NTest performed at:[facility] [address] [place] [address] T4 FREE DIRECT 0.74 ng/dL (Abnormal) Range: 0.76-1.46 :45 Thyroid Stim Hormone (TSH) Comments: Is Patient Taking Vitamins or Folic Acid Supplements? NTest performed at:[facility] [address] [place], [place] [address] TSH 1.39 {uIU/mL} (Normal) Range: 0.358-3.74 :45 Urinalysis, Routine (Dipstick) Comments: How was Urine Obtained? Urine, RandomTest performed at:[facility] [address]ckxnyy[address] [place] [address] LEUK ESTERASE 500 /ul (Abnormal) OCCULT BLOOD-UR Negative /ul (Normal) NITRITE UR Negative (Normal) UROBILI Normal mg/dL (Normal) PROT DIPSTX Negative mg/dL (Normal) pH UR 8.0 (Normal) Range: 5.0 - 8.0 SP.GR. DIPSTX 1.010 (Normal) Range: 1.002-1.030 KETONE UR Negative mg/dL (Normal) BILIRUBIN URINE Negative mg/dL (Normal) GLUCOSE, UR Normal mg/dL (Normal) CLARITY Sl. Cloudy (Normal) COLOR Yellow (Normal) 2-Zml-249344:45 Vitamin B12 1089 pg/mL (Abnormal) Comments: Test performed at:[facility] [address]iprhobu[address] [place] [address] Range: 211-911 7-Rtp-301897:45 Vitamin D,25 Hydroxy Comments: Test performed at:[facility] [address] [place] [address] Vitamin D 25-OH 23.9 ng/mL (Normal) Comments: Vitamin D 25(OH) Status Range Deficiency <20 ng/mL (50nmol/L) Insuffciency 20 - 30 ng/mL (50 - 75 nmol/L) Sufficiency 30 - 100 ng/mL (75 - 250 nmol/L) Toxicity >100 ng/mL (>250 nmol/L) 78-Kxs-344575:43 ALBUMIN SERUM (35697) Comments: PATIENT NOT FASTINGPERFORMED BY: [facility]QuantumSphereAd[facility] [id number] Albumin, Serum 4.7 g/dL (Normal) Range: 3.5-5.5 95-Ssg-295523:43 PREALBUMIN (32789) Comments: PATIENT NOT FASTINGPERFORMED BY: [facility] [facility]QuantumSphereAd[facility] [id number] Prealbumin 29 mg/dL (Normal) Range: 20-40 13-Mjr-365644:21 ANJELICA CULTURE-OTHER (77988) Comments: PATIENT NOT FASTINGPERFORMED BY: [facility]6370 [facility] [id number] Information: SRC:THRT [id number] Result 1 RRF (Normal) Comments: Routine respiratory jasper Upper Respiratory Culture Final report (Normal) 70-Ohw-756713:43 PROLACTIN (03303) Comments: PATIENT NOT FASTINGPERFORMED BY: [facility]6370 [facility] [id number] Prolactin 13.8 ng/mL (Normal) Range: 4.8-23.3 28-Gbp-868302:43 T3, FREE (TRIDOTHYRONINE) (79004) Comments: PATIENT NOT FASTINGPERFORMED BY: [place] 1160470 [facility] [id number] Triiodothyronine,Free,Serum 3.3 pg/mL (Normal) Range: 2.0-4.4 13-Vac-467808:43 T4, FREE (THYROXINE) (09814) Comments: PATIENT NOT FASTINGPERFORMED BY: [place] 1160470 [facility] [id number] T4,Free(Direct) 1.14 ng/dL (Normal) Range: 0.82-1.77 84-Fjd-891150:43 TSH (29333) Comments: PATIENT NOT FASTINGPERFORMED BY: [facility]6370 [facility] [id number] Information: [id number] TSH 1.580 {uIU/mL} (Normal) Range: 0.450-4.500 42-Lgt-978027:00 CBCD ANC 1.8 {X10_3/uL} (Abnormal) Range: 2.0-7.7 [...] CDIFF See Note (Normal) Comments: FAXED TO [employer] C. Diff DNA Positive-Toxigenic C. Difficile DNA [...] spora, or Mi crosporidia. TESTING PERFORMED AT [facility]. ORIGINAL REPORT ON FILE IN LAB CONTAINS [...] Detected :55 Oxcarbazepine (Trileptal),S Comments: PERFORMED BY: Trippy Bandz [facility] [id number] BY: [address] [id number] Oxcarbazepine 32 ug/mL (Normal) Range: 10-35 Comments: Detection Limit = 1 :55 CALCIFIDIOL (31811) VIT D Comments: PERFORMED BY: [employer] [facility] [id number] BY: [address] [id number] 25 Vitamin D, 25-Hydroxy 27.4 ng/mL (Abnormal) Range: 30.0-100.0 Comments: Vitamin D deficiency has been defined by the [place] ofMedicine and an Endocrine Society practice guideline as alevel of serum 25-OH vitamin D less than 20 ng/mL (1,2).The Endocrine Society went on to further define vitamin Dinsufficiency as a level between 21 and 29 ng/mL (2).1. IOM ([place] of [place]). 2010. Dietary reference intakes for calcium and D. [place]: The National Academies Press.2. Gabbi MF, Singh MCKEON, Pollo JOSEPH, et al. Evaluation, treatment, and prevention of vitamin D deficiency: an Endocrine Society clinical practice guideline. JCEM. 2010; 96(7):1911-30. :55 Folate (12237) Comments: PERFORMED BY: [employer] Dog Imvijc3010 [facility] [id number] BY: [address] [id number] Folate (Folic Acid), Serum 16.3 ng/mL (Normal) Comments: A serum folate concentration of less than 3.1 ng/mL isconsidered to represent clinical deficiency. :55 VITAMIN B-12 (CYANOCOBALAMIN) Comments: PERFORMED BY: Cocodrilo [employer] [facility] [id number] BY: [address] [id number] ([id number]) Vitamin B12 889 pg/mL (Normal) Range: 211-946 :55 TSH (83242) Comments: PERFORMED BY: [employer] [facility] [id number] BY: [address] [id number] TSH 1.670 {uIU/mL} (Normal) Range: 0.450-4.500 :55 SED RATE ERYTHROCYTE Comments: PERFORMED BY: Trippy Bandz [facility] [id number] BY: [address] [id number] ([id number]) Sedimentation Rate-Westergren 6 mm/h (Normal) Range: 0-32 :55 METABOLIC PANEL, Comments: PERFORMED BY: Trippy Bandz [facility] [id number] BY: [address] [id number] COMPREHENSIVE (83896) ALT (SGPT) 11 [iU]/L (Normal) Range: 0-32 [...] cells when received.This may adversely affect serumChemistries. 5-Qat-851180:55 C-REACTIVE PROTEIN (08017) Comments: PERFORMED BY: [employer].netlin6370 [facility] [id number] BY: Cocodrilo Dog[address] [id number] C-Reactive Protein, Quant 0.9 mg/L (Normal) Range: 0.0-4.9 8-Rza-617920:55 CBC (AUTO) (78127) Comments: PERFORMED BY: [employer] [facility] [id number] BY: Cocodril[address] [id number] Platelets 213 {x10E3/uL} (Normal) Range: 140-415 Comments: [...] of these values in the reference population. 7-Fwp-818624:29 ANJELICA CULTURE-OTHER (08422) Comments: PATIENT NOT FASTINGPERFORMED BY: [facility] [id number] Information: SRC:THRT [id number] Result 1 RRF (Normal) Comments: Routine respiratory jasper Upper Respiratory Culture Final report (Normal) 2-Wwh-007185:03 Rapid Strep Test, Office (71851) Rapid Strep Test, Negative (Normal) Office 49-Fat-582407:55 CDIF See Note (Normal) Comments: A positive [...] in these cases. C. DIFF ANTIGENS POSITIVE 40-Skg-927875:30 CDIF See Note (Normal) Comments: RESULTS CALLED [...] Comments: C. DIFF ANTIGENS NEGATIVE :2 TRILEPT 277396 20 ug/mL (Normal) Range: 10-35 4 Comments: Detection Limit = 1Performed at: [facility] [id number] Director: Reji Gibson MD, Phone: [phone] :1 C DIF TOXIN/AG See Note (Normal) Comments: RESULTS CALLED TO 06/23/112004 VONDA ELAM.REPORT READ BACK BY SAME . * This is an amended result. * A 5 prior result that was reported as final has been changed.06/23/112004 by IESHAPreviously reported as: C. DIFF ANTIGENS POSITIVE 03-Imf-838169:46 COMP METABOLIC GAP 11 (Normal) Range: 5-15 [...] 7-18 GLU 71 mg/dL (Normal) Range: 70-110 42-Zkf-935346:41 CBCD ABSOLUTE NEUT 5.0 3/uL (Normal) Range: [...] 4.2-5.4 WBC 7.2 K/mm3 (Normal) Range: 4.4-11.0 8-Mkk-782975:49 CULTURE, THROAT See Note (Normal) Comments: Normal [...] (Normal) Comments: RESULTS CALLED TO OFFICE TO RejiWYGUDHCG63/04/10 1151 KRISTIAN MILLER.REPORT READ BACK BY SAME . Comments: TESTING DONE BY CRISELDA 07/16/10 1845 C. DIFF ANTIGENS POSITIVE :21 CUL STOOL/SHIG Comments: RESULTS CALLED TO OFFICE TO THAISLQTJWCPO21/04/10 115KRISTIAN DAWSON.REPORT READ BACK BY SAME . [...] Cyclospora, or Microspo ridia. TESTING PERFORMED AT [facility]. ORIGINAL REPORT ON FILE IN LAB CONTAINS [...] Cyclospora, or Microspo ridia. TESTING PERFORMED AT [facility]. ORIGINAL REPORT ON FILE IN LAB CONTAINS ADDITIONAL TEST SITE INFORMATION. OVA/ PARASITES EXAM NO OVA, CYSTS, OR PARASITES FOUND. :20 WBC,STOOL See Note (Normal) Comments: FECAL WBCs NONE SEEN 91-Fde-434201:14 C DIF TOXIN See Note (Normal) :44 O AND P See Note (Normal) Comments: OVA AND PARASITES EXAM, ROUTINE These results were obtained using wet preparation(s) and trichrome stained smear. This test does not include testing for Crytosporidium parvum, Cyclospora, or Microspo ridia. TESTING PERFORMED AT [facility]. ORIGINAL REPORT ON FILE IN LAB CONTAINS [...] Cyclospora, or Microspo ridia. TESTING PERFORMED AT [facility]. 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 Indication: Convulsions Neuromuscular scoliosis : Follow [...] Cystitis, acute Planned Observations URINE ANJELICA CULTURE-IDENTIFICATN (81155)Indication: Abnormal urine On: 5-Yze-394404:25 Request MRSA Culture (39739)Indication: Thick sputum On: 3-Boa-869272:32 Request Anaerobic & Aerobic Culture (57171)Indication: Thick sputum On: 83-Iba-355188:46 Request Comments: collected from trachea stoma Anaerobic & Aerobic Culture (73667)Indication: Cellulitis of groin, right On: 0-Fix-886970:44 Request TRILEPTAL-OXCARBAZEPINE 074190 (33593)Indication: Diarrhea On: 1-Zls-127723:24 Request VITAMIN B12 AND FOLATES (92211)Indication: Diarrhea On: 9-Rys-388139:24 Request CALCIFEDIOL (34851)Indication: Diarrhea On: 3-Abl-196578:24 Request CALCIFEDIOL (50104)Indication: Diarrhea On: 1-Eei-230724:23 Request TSH (THYROID STIMULATING HORMONE) (61744)Indication: Diarrhea On: 2-Iuk-929648:23 Request METABOLIC PANEL, COMPREHENSIVE (16867)Indication: Diarrhea On: 1-Ulk-467567:23 Request CBC, PLATELETS & AUT DIFF (29972)Indication: Diarrhea On: 8-Uwv-780525:23 Request OVA & PARASITE DIR SMEAR (99144)Indication: Diarrhea On: 47-Ahn-255516:46 Request ANJELICA CULTURE-STOOL (14468)Indication: Diarrhea On: :46 Request OCCULT BLOOD FECES SCREEN (41293)Indication: Diarrhea On: :46 Request LEUKOCYTE COUNT, FECAL (52818)Indication: Diarrhea On: :46 Request C-DIFFICILE, STOOL (33316)Indication: Diarrhea On: :46 Request OVA & PARASITE DIR SMEAR (08794)Indication: C. difficile diarrhea On: :50 Request OCCULT BLOOD FECES SCREEN (39115)Indication: C. difficile diarrhea On: :50 Request ANJELICA CULTURE-STOOL (29098)Indication: C. difficile diarrhea On: :50 Request LEUKOCYTE COUNT, FECAL (92866)Indication: C. difficile diarrhea On: :50 Request C-DIFFICILE, STOOL (75560)Indication: C. difficile diarrhea On: :49 Request Clostridium difficile Culture (12372)Indication: Diarrhea On: 6-Byt-206498:52 Request URINALYSIS, W/ MICRO (94027)Indication: Dysuria On: :56 Request URINE ANJELICA CULTURE-SISSY COL COUNT (05684)Indication: Dysuria On: :54 Request OCCULT BLOOD FECES SCREEN (24262)Indication: Diarrhea On: :01 Request LEUKOCYTE COUNT, FECAL (83805)Indication: Diarrhea On: :05 Request ANJELICA CULTURE-STOOL (01253)Indication: Diarrhea On: :05 Request Clostridium difficile Toxin A+B, EIA (49777)Indication: Diarrhea On: :05 Request TRILEPTAL-OXCARBAZEPINE 838728 (80965)Indication: Convulsions On: :55 Request PREALBUMIN (59689)Indication: Nutritional assessment On: :45 Request CALCIFIDIOL (80329) VIT D 25Indication: Vitamin D deficiency On: :44 Request TSH (04997)Indication: Hypertension On: :44 Request METABOLIC PANEL, COMPREHENSIVE (61699)Indication: Hypertension On: :44 Request LIPID PANEL (11505)Indication: Hypertension On: :44 Request CBC with auto diff (71672)Indication: Hypertension On: :44 Request Metabolic Panel, Basic (57901)Indication: Abnormal urine On: :03 Request VITAMIN B12 AND FOLATES (81685)Indication: Abnormal urine On: : Request CALCIFEDIOL (47111)Indication: Abnormal urine On: :03 Request Comments: vit d3 URINE ANJELICA CULTURE-SISSY COL COUNT (55395)Indication: Abnormal urine On: :52 Request TRILEPTAL-OXCARBAZEPINE 103044 (51803)Indication: Cerebral palsy On: :46 Request HCG Qualitative, Serum (30760)Indication: Amenorrhea On: :45 Request PROLACTIN (65438)Indication: Amenorrhea On: :44 Request PREALBUMIN (12048)Indication: Cerebral palsy On: 27-Vgs-762660:43 Request URINALYSIS (04264)Indication: Fatigue On: :43 Request T3, FREE (TRIDOTHYRONINE) (35625)Indication: Fatigue On: :43 Request T4, FREE (THYROXINE) (92928)Indication: Fatigue On: :43 Request Folate (73788)Indication: Fatigue On: :42 Request CALCIFIDIOL (69228) VIT D 25Indication: Fatigue On: 08-Nxz-352839:42 Request VITAMIN B-12 (CYANOCOBALAMIN) (94967)Indication: Fatigue On: 04-Hmh-545791:42 Request TSH (73828)Indication: Fatigue On: :42 Request SED RATE ERYTHROCYTE (33865)Indication: Fatigue On: 73-Dse-270368:42 Request METABOLIC PANEL, COMPREHENSIVE (94243)Indication: Fatigue On: 84-Dce-722273:42 Request C-REACTIVE PROTEIN (06166)Indication: Fatigue On: 80-Xwn-723507:42 Request CBC (AUTO) (43383)Indication: Fatigue On: 66-Svi-247687:42 Request CULTURE,BODY FLUID (50150)Indication: Irregular Menstrual Cycle (Renamed from Irregular bleeding) On: :07 Request Comments: urine Rapid Strep Test, Office (86755)Indication: Pharyngitis, acute On: 42-Rqh-502866:51 Request Urinalysis, Office (22257)Indication: Fatigue On: 50-Tww-345297:49 Request HgA1C , Office (83064)Indication: Hyperglycemia On: 20-Krz-475679:41 Request CALCIFIDIOL (54759) VIT D 25Indication: Vitamin D deficiency On: :32 Request TRILEPTAL-OXCARBAZEPINE 830616 (62538)Indication: Convulsions On: :31 Request Metabolic Panel, Comprehensive (89315)Indication: Acute renal failure On: :31 Request CBC with manual diff (76847)Indication: Hypertension On: :31 Request CBC with manual diff (28212)Indication: Thrombocytopenia, unspecified On: :35 Request Comments: in citrate tube FIBRINOGEN (23733)Indication: Thrombocytopenia, unspecified On: :35 Request PTT (Activated Partial Thromboplastin Time) (26386)Indication: Thrombocytopenia, unspecified On: :35 Request PT (Prothrobim Time) (97113)Indication: Thrombocytopenia, unspecified On: :35 Request HEPATITIS C ANTIBODY (96357)Indication: Thrombocytopenia, unspecified On: :35 Request HEPATITIS B CORE ANTBD-IGG/IGM (72708)Indication: Thrombocytopenia, unspecified On: :35 Request HEPATITIS B SURFACE ANTIGEN (46478)Indication: Thrombocytopenia, unspecified On: :35 Request HEPATITIS B SURFACE ANTIBODY (02338)Indication: Thrombocytopenia, unspecified On: :35 Request Methylmalonic acid, serum 64226Hxtyaobdcv: Thrombocytopenia, unspecified On: :35 Request Vitamin B-12 (cyanocobalamin) (37368)Indication: Thrombocytopenia, unspecified On: :35 Request Sed Rate Erythrocyte (59655)Indication: Thrombocytopenia, unspecified On: :35 Request Metabolic Panel, Comprehensive (81359)Indication: Thrombocytopenia, unspecified On: :35 Request JENNY (ANTINUCLEAR ANTIBODY) (42389)Indication: Thrombocytopenia, unspecified On: :35 Request CBC with manual diff (58191)Indication: Convulsions On: :31 Request Clostridium difficile Toxin A+B, EIA (88481)Indication: Diarrhea On: :31 Request OVA & PARASITE DIR SMEAR (92165)Indication: Diarrhea On: :44 Request OCCULT BLOOD FECES SCREEN (68511)Indication: Diarrhea On: :44 Request LEUKOCYTE COUNT, FECAL (23553)Indication: Diarrhea On: :44 Request ANJELICA CULTURE-STOOL (96721)Indication: Diarrhea On: :44 Request Clostridium difficile Toxin A+B, EIA (27221)Indication: Diarrhea On: 39-Ipt-778777:22 Request C DIFF AMPLIFIED PROBE (67118)Indication: Diarrhea On: :51 Request Metabolic Panel, Comprehensive (42949)Indication: Acute renal failure On: :08 Request Comments: recheck prior to August. CALCIFIDIOL (00414) VIT D 25Indication: Vitamin D deficiency On: :08 Request Comments: recheck prior to August. TRILEPTAL-OXCARBAZEPINE 621556 (08601)Indication: Convulsions On: :08 Request Culture, Stool (34395)Indication: Diarrhea On: :01 Request C DIFF AMPLIFIED PROBE (59627)Indication: Diarrhea On: :01 Request C DIFF AMPLIFIED PROBE (25691)Indication: Diarrhea On: 24-Nrp-285455:32 Request C DIFF AMPLIFIED PROBE (31979)Indication: Diarrhea On: 02-Lwv-976465:51 Request URINE ANJELICA CULTURE-IDENTIFICATN (15870)Indication: Backache On: 6-Ktp-637236:58 Request URINALYSIS (00267)Indication: Backache On: 3-Obj-927397:58 Request Metabolic Panel, Comprehensive (63080)Indication: Profound mental retardation (Renamed from IQ under 20) On: 2-Hxm-161502:25 Request Comments: Dr Pino neurologist at [facility] CBC (Auto) (88363)Indication: Profound mental retardation (Renamed from IQ under 20) On: 5-Wjr-051801:25 Request TRILEPTAL-OXCARBAZEPINE 960328 (75633)Indication: Cerebral palsy On: :24 Request COLUMN CHROMATOGRAPHY, SISSY, SINGLE (20197)Indication: Convulsions On: 32-Hgp-294134:54 Request Comments: trileptal [id number] Clostridium difficile Toxin A+B, EIA (75306)Indication: Diarrhea On: 95-Vqg-372451:26 Request CBC (Auto) (92042)Indication: Convulsions On: 19-Alm-106116:25 Request Metabolic Panel, Comprehensive (49481)Indication: Convulsions On: 03-Eji-298403:24 Request ANJELICA CULTURE-OTHER (73295)Indication: Pharyngitis, acute On: 7-Few-230844:44 Request C.Difficile, Stool (53549)Indication: Diarrhea On: 88-Mzs-361664:48 Request ANJELICA CULTURE-STOOL (25339)Indication: Diarrhea On: :55 Request C.Difficile, Stool (26244)Indication: Diarrhea On: :54 Request LEUKOCYTE COUNT, FECAL (23605)Indication: Diarrhea On: 41-Wjk-799315:27 Request OVA & PARASITE DIR SMEAR (83421)Indication: Diarrhea On: 87-Xxn-858407:27 Request C.Difficile, Stool (37312)Indication: Diarrhea On: :27 Request ANJELICA CULTURE-STOOL (53518)Indication: Diarrhea On: 21-Xif-768316:27 Request TSH (23101)Indication: Unspecified bacterial pneumonia On: 2-Wis-065592:48 Request CBC, Platelets & Auto Diff (62148)Indication: Unspecified bacterial pneumonia On: 9-Nvr-880900:48 Request Magnesium (14991)Indication: Unspecified bacterial pneumonia On: 0-Qzb-482108:48 Request Phosphorus (67626)Indication: Unspecified bacterial pneumonia On: 1-Ueo-068155:48 Request Metabolic Panel, Basic (72742)Indication: Unspecified bacterial pneumonia On: 0-Nox-993093:48 Request Planned Encounters Medical; 4 Month FU - On: 10-Oct-2018 13:15 [facility] Sandra Bermudez DOon Sandra MCCULLOUGH Planned Procedures Flu Vaccine (Quadrivalent) On: 06-Jun-2018 Intent 77604Fu: Lara MCCULLOUGHSandra Comments: Lot #[id number]-L dltd, IMDose prefilled syringegiven by:MARICARMEN Santana reviewed and ABN signed Sandra Bermudez DO Flu Vaccine (Quadrivalent) On: 02-Aug-2017 Intent 35681Qd: Lara MCCULLOUGHSandra Comments: Lot:[id number]:12/29Amt:0.5mlRoute:IMSite: Rt DltdGiven By: ALFREDITO James signed Sandra Bermudez DO Flu Vaccine (Quadrivalent) On: 14-May-2016 Intent 92296Ik: Roe Baxter MD Comments: Lot #[id number]-L dltd, IMDose prefilled syringegiven by:ALFREDITO Goldberg and ABN signed ADMINISTRATION OF INFLUENZA On: 02-Aug-2015 Intent VIRUS VACCINE (G0008)By: Linda Houston MD Flu Vaccine (Quadrivalent) On: 02-Aug-2015 Intent 60804Zf: Linda Houston MD Comments: Lot #:[id number] date:Amount given:0.5mlRoute: IMSite given:L DltdGiven by: Jessica BASSETT and ABN signed Quad Flu ELECTROCARDIOGRAM, COMPLETE On: 21-Mar-2015 Intent (ECG) (23913)By: Linda Houston MD CT - Brain/Head (IV Contrast On: 29-Nov-2014 Intent Needed)By: Linda Houston MD ADMINISTRATION OF INFLUENZA On: 06-Aug-2014 Intent VIRUS VACCINE (G0008)By: TIMBO Villegas Flu Vaccine (Quadrivalent) On: 06-Aug-2014 Intent 66963Pj: TIMBO Villegas Comments: Lot #:[id number] date:mount given:0.5mlRoute: IM Site given:Given by: to be given per patient home health nurse CATHETERIZE FOR URINE SPEC On: 09-Mar-2014 Intent (P9612)By: Linda Houston MD Comments: pls use pediatric cath- and fax results to [phone] SPECIMEN HNDLNG/TRNSPRT, OFFC > On: 09-Mar-2014 Intent LAB (64608)By: Linda Houston MD IMMUNIZ ADMNIN, 1 VAC, On: 28-Jul-2013 Intent SNGL/COMBO (11057)By: Archie BOLDEN, Comments: Lot #[id number] to nurse for admin Jessica Stack FLU VAC, SPLIT, >3 YEARS, On: 28-Jul-2013 Intent INTRAMUSC (57317)By: Jessica Almanza LPN SPECIMEN HNDLNG/TRNSPRT, OFFC > On: 18-May-2013 Intent LAB (35687)By: Linda Houston MD Eprescribed prescriptions On: 18-May-2013 Intent (G8553)By: Jessica Almanza LPN FLU VAC, SPLIT, >3 YEARS, On: 23-Jun-2011 Intent INTRAMUSC (33482)By: Archie BOLDEN, Comments: Lot #[id number]-L arm, IMDose prefilledgiven by:Jessica Stack IMMUNIZ ADMNIN, 1 VAC, On: 23-Jun-2011 Intent SNGL/COMBO (79221)By: Jessica Almanza LPN Instructions Name Dates Details [...] for the procedure will be Dr Beck [facility]. The chief complaint is teeth [...]
--- OUTSIDE RECORDS SUMMARY | 2018-10-08 11:30 | XMS RPT_ITS | Continuity of Care Document ---
:1990 Author Organization [facility] Address [address] [facility] [address] [place] [address] Phone Care Team Providers Name Role Phone [...] 0 days Quantity: 1 {Box} Refills: 12 Ordered:22-Aug-2018 Karin Bermudez DO, DO, Kathleen Start : 22-Aug-2018 Active DiazePAM 1 MG/ML Oral Solution 5 [...] Propionate 50 MCG/ACT Nasal Suspension 2 (two) [place](s) [place](s) each nostril qd for 90 days Quantity: 1 {QS} Refills: 3 Ordered:16-Sep-2017 Karin Bermudez DO, DO, Kathleen Start : 16-Sep-2017 Active HumaLOG KwikPen 100 UNIT/ML Subcutaneous Solution Pen-injector 12 Unit with meals for 30 days Quantity: 3 {Pre-filled_Pen_Syringe} Refills: 5 Ordered:10-Aug-2018 Karin Bermudez DO, DO, Kathleen Start : 10-Aug-2018 Active Lantus SoloStar 100 UNIT/ML Subcutaneous Solution [...] Houston MD Start : 20-Jan-2016 Active Nyamyc 709731 UNIT/GM External Powder uad Powder to affected area(s) bid and prn for 0 days Quantity: 15 {Bottle} Refills: 6 Ordered:19-Nov-2017 Karin Bermudez DO, DO, Kathleen Start : 19-Nov-2017 End : 17-Nov-2013 Active Nystatin 211574 UNIT/GM External Cream uad Cream to affected area(s) bid prn for 7 days Quantity: 1 {Bottle} Refills: 3 Ordered:03-Jun-2018 Karin Bermudez DO, DO, Kathleen Start : 03-Jun-2018 Active Nystatin 504102 UNIT/ML Mouth/Throat Suspension 5 ml ml 5 times day for 10 days Quantity: 250 {Milliliter} Refills: 9 Ordered:03-Apr-2016 Jessica Almanza LPN Start : 03-Apr-2016 Active Nystatin Powder 1 Powder Powder tid for 10 days Quantity: 1 {Bottle} Refills: 3 Ordered:28-Jun-2017 Karin Bermudez DO, DO, Kathleen Start : 28-Jun-2017 Active [place] 31G X 5 MM Miscellaneous 1 (one) [...] days Quantity: 100 {Milliliter} Refills: 0 Ordered:11-Nov-2015 Katia JOHNSTON Jasmin Start : 11-Nov-2015 End : 21-Nov-2015 Inactive [...] Quantity: 1 {Ointment} Refills: 1 Ordered:17-Nov-2013 TIMBO iVllegas Start : 31-Jul-2013 End : 17-Nov-2013 Inactive [...] prn for 0 days Refills: 0 Ordered:23-Jun-2011 Jessica Almanza LPN End : 23-Jun-2011 Inactive LevoFLOXacin 25 MG/ML [...] for 0 days Refills: 0 Ordered:23-Jun-2011 Long WOOD MILLING MACHINE TENDER, Jessica L End : 23-Jun-2011 Inactive MUCINEX FOR KIDS, 100MG/5ML (Oral Liquid) Liquid 15 cc tid 14 days for 0 days Refills: 0 Ordered:23-Jun-2011 Long WOOD MILLING MACHINE TENDER, Jessica L Start : 13-Jun-2009 End : [...] Quantity: 30 {Packet} Refills: 2 Ordered:15-May-2016 Long WOOD MILLING MACHINE TENDER, Jessica L Start : 14-May-2016 End : [...] nostril qd for 0 days Quantity: 1 {[place]} Refills: 3 Ordered:09-Apr-2015 Linda Houston MD Start [...] : 23-Jun-2011 Discontinued Comments:This order discontinued per -Span. Allergies and Adverse Reactions Name Dates Details Milk (Allergy) Status: Active Miralax (Allergy) Status: Active Nafcillin (Allergy) Status: Active soy (Allergy) Status: Active Tincture of Benzoin (Allergy) Status: Active Tobramycin Sulfate *AMINOGLYCOSIDES* (Allergy) Status: Active Comments: turned beet red Past Medical History Name Dates Details Acute bronchitis (J20.9, 466.0) Status: Inactive as of 09-Mar-2014 Acute renal failure (N17.9, 584.9) Comments: 9 when in hospital and will get report [...] Comments: See Note; NOTES: [facility] [place] [address] [place] [address] OFFICE VISIT Date of Service: 05/25/18 MR#: [id number] Acct: [id number] Name: MANDY MONTERO Rickey Rep #: [id number] : 1990 Provider: Lawrence Weiner MD Age/Sex: 28/F [place] [facility] Status: Signed Assessment AND Plan Problems 1. [...] Department Summary Result: Comments: See Note; NOTES: [facility] Medical Records Department [address] [place] [address] Emergency Department Summary 01/24/18 1645 MR#: [id number] Acct: [id number] Name: MIGUELMANDY Rickey Rep #: [id number] : 1990 27 From: Stephan Hughes MD [...] Discharged to home Impression: 1. Cellulitis left [facility] region 2. Dysuria of unknown etiology 3. History of MRDD 4. History of Propulsid 5. History of chronic respiratory failure on ventilator This note was generated with [employer] dictation software. It m ay contain incorrect [...] Instructions: Mandy prescription was electronically transmitted to [facility], [facility] What to do if you have Problems For any increased pain, shortness of breath, bleeding, nausea or vomiting, chest pain, or any unexpected problems, contact your Primary Care Provider. Call [facility] ([phone]) or report to the closest Emergency Room. Call 911 if necessary. 01/24/18 1749 <Electronically signed by Stephna Hughes MD> Date Stephan Hughes MD Cosigner Signature (If Indicated): Date CC: Sandra Bermudez DO 10-Dec-2017 Pulmonary Visit Report Result: Comments: See Note; NOTES: [facility] [address] [place] [address] OFFICE VISIT Date of Service: 12/09/17 MR#: [id number] Acct: [id number] Name: MIGUEL MANDY A Rep #: [id number] : 1990 Provider: Lawrence Weiner MD Age/Sex: 27/F Location[place] [facility] Status: Signed Assessment AND Plan 1. Chronic [...] Comments: See Note; NOTES: [facility] [place] [address] [place] [address] OFFICE VISIT Date of Service: 09/02/17 MR#: [id number] Acct: [id number] Name: MANDY MONTERO Rep #: [id number] : 1990 Provider: Lawrence Weiner MD Age/Sex: 27/F Location[place] [facility] Status: Signed Assessment AND Plan 1. Spastic [...] mg (10 mL) PO QDAY PRN allergy rutpojdbV75 .2 Ok to give through PEG Follow [...] a cot with her mother and healthcare parts room assistant. Family reports the patient has had [...] Department Summary Result: Comments: See Note; NOTES: [facility] Medical Records Department [address] [place] [address] Emergency Department Summary MR#: [id number] Acct: [id number] Name: MANDY MONTERO Rep #: [id number] : 1990 26 From: Flip Jessica MD PCP: Sandra Bermudez DO Status: [facility] ER DATE OF SERVICE: 03/06/2017 CHIEF [...] . Flip Jessica MD T: NTS JOB: [id number] 03/10/17 0806 <Electronically signed by Flip Jessica MD> Date Flip Jessica MD Cosigner Signat ure (If Indicated): Date CC: Sandra Bermudez DO Date Dictated: 03/06/171722 Date Transcribed: 03/06/171722 Multi Share Program Coordinator: Signed 06-Mar-2017 Discharge Instruction Result: Comments: See Note; NOTES: [facility] Medical Records Department [address] [place] [address] Discharge Instruction 03/06/171719 MR#: [id number] Acct: [id number] Name: ROMELIA MONTERO ANABELA Jefferson Rep #: [id number] : 1990 26 From: Flip Jessica MD [...] your Primary Care Provider. Call [facility] ([phone]) or report to the closest Emergency Room. Call 911 if necessary. 03/06/171719 <Electronically signed by Flip Jessica MD> Date Flip Jessica MD Cosigner Signature (If Indicated): Date CC: Sandra Bermudez DO 06-Mar-2017 Chest 1 View Result: Comments: See Note; NOTES: [facility] Imaging Services [address] [place] [address] Verdana 4d Chest 1 View MR#: [id number] Acct: [id number] Name: MANDY MONTERO Rep #: [id number] : 1990 F 26 From: Merritt Bolton MD PCP: Sandra Bermudez DO Status: REG ER Study: Chest 1 View Date of Exam: 03/06/17 Exam# [id number] Ordering Dr: Flip Jessica MD STUDY: X-RAY [...] CC: Flip Jessica MD; Sandra Bermudez DO Multi Share Program Coordinator: Signed 06-Mar-2017 Thoracic Spine 3 Views Result: Comments: See Note; NOTES: [facility] Imaging Services [address] [place] [address] Verdana 4d Thoracic Spine 3 Views MR#: [id number] Acct: [id number] Name: MANDY MONTERO Rep # : [id number] : 1990 F 26 From: Merritt Bolton MD PCP: Sandra Bermudez DO Status: REG ER Study: Thoracic Spine 3 Views Date of Exam: 03/06/17 Exam# [id number] Ordering Dr: Flip Jessica MD [facility] [...] CC: Flip Jessica MD; Sandra Bermudez DO Multi Share Program Coordinator: Signed 10-Sep-2016 Chest 1 View (Portable) Result: Comments: See Note; NOTES: [facility] Imaging Services [address] [place] [address] [place] 4d Chest 1 View (Portable) MR#: [id number] Acct: [id number] Name: MANDY MONTERO Rep #: [id number] : 1990 F 26 From: Mandy Chávez MD PCP: Sandra Bermudez DO Status: PRE ER Study: Chest 1 View (Portable) Date of Exam: 09/10/16 Exam# [id number] Ordering Dr: Vinnie Sher MD STUDY: X-RAY [...] MD at 23:49 EST , Service support [phone], CC: Linden Sher MD; Sandra Bermudez DO Multi Share Program Coordinator: Signed 12-Mar-2016 Emergency Department Summary Result: Comments: See Note; NOTES: [facility] Medical Records Department [address] [place] [address] Emergency Department Summary MR#: [id number] Acct: [id number] Name: MANDY MONTERO Rep #: [id number] : 1990 25 From: Joseph Mcgee MD [...] Baxter Date Dictated: 02/29/16112 Date Transcribed: 02/29/16112 Multi Share Program Coordinator: Signed 28-Feb-2016 Discharge Instruction Result: Comments: See Note; NOTES: [facility] Medical Records Department [address] [place] [address] Discharge Instruction 02/28/161925 MR#: [id number] Acct: [id number] Name: MANDY MONTERO Rep #: [id number] : 1990 25 From: Joseph Mcgee MD [...] problems, contact your doctor. Call [facility] ([phone]) or report to the closest Emergency Room. Call 911 if necessary. 2241 <Electronically signed by Joseph Mcgee MD> Date Joseph Mcgee MD Cosigner Signature (If Indicated): Date ___ CC: Roe Baxter 28-Feb-2016 Abdomen/Pelvis without Cont Result: Comments: See Note; NOTES: [facility] Imaging Services [address] [place] [address] Verdana 4d Abdomen/Pelvis without Cont MR#: [id number] Acct: [id number] Name: MANDY MONTERO Rep #: [id number] : 1990 F 25 From: Seymour Villagomez MD PCP: Roe Baxter Status: [facility] ER Study: Abdomen/Pelvis without Cont Date of Exam: 02/28/16 Exam# [id number] Ordering Dr: Joseph Patton MD STUDY: CT [...] MD at 18:47 EDT , Service support [phone], CC: Roe Baxter; Joseph Mcgee MD Multi Share Program Coordinator: Signed 25-Feb-2016 Emergency Department Summary Result: Comments: See Note; NOTES: [facility] Medical Records Department [address] [place] [address] Emergency Department Summary MR#: [id number] Acct: [id number] Name: MANDY MONTERO Rep #: [id number] : 1990 25 From: Tomás Willis MD [...] C: Roe Baxter MD T: NTS JOB: [id number] 02/25/16 1517 <Electronically signed by Tomás Willis MD> Date Tomás Willis MD Cosigner Signature (If Indicated): Date CC: Roe Baxter Date Dictated: 02/23/16 152 Date Transcribed: 02/23/16 152 Multi Share Program Coordinator: Signed 23-Feb-2016 Discharge Instruction Result: Comments: See Note; NOTES: [facility] Medical Records Department [address] [place] [address] Discharge Instruction 02/23/16 1514 MR#: [id number] Acct: [id number] Name: MANDY MONTERO Rep #: [id number] : 1990 25 From: Tomás Willis MD [...] problems, contact your doctor. Call Doctors Registry ([phone]) or report to the closest Emergency Room. Call 911 if necessary. [phone] <Electronically signed by Tomás Willis MD> Date Tomás Willis MD Cosigner Signature (If Indicated): Date CC: Reo Baxter 28-Jan-2016 Chest 1 View (Portable) Result: Comments: See Note; NOTES: [facility] Imaging Services [address] [place] [address] Verdana 4d Chest 1 View (Portable) MR#: [id number] Acct: [id number] Name: MANDY ACUNA Rep #: [id number] : 1990 F 25 From: Abdirahman Awad MD PCP: Linda Housotn MD Status: PRE ER Study: Chest 1 View (Portable) Date of Exam: 01/28/16 Exam# [id number] Ordering Dr: Edita Willis MD STUDY: X-RAY [...] MD at 22:53 EDT , Service support [phone], RAD/Chest 1 View (Portable) IMPRESSION: Retrocar diac density in left lower lobe possibly representing atelectasis or infiltrate. Recommend lateral view for further assessment Electronically Signed: Abdirahman Awad MD at 22:53 EDT , Service support [phone], CC: Linda Houston MD; Tomás Willis MD Multi Share Program Coordinator: Signed Family History Unknown Family Member Name Dates Details She was adopted at 5 months Status: Active Social History Name Dates Details Current Work/Study Status Comments: Disabled Status: Active Exercise History Comments: Inactive Status: Active [facility] Status: Active No Caffeine Use Status: Active No Drug Use Status: Active Non Drinker/No Alcohol Use Status: Active Non Smoker/No Tobacco Use Status: Active Vital Signs Date Test Result Details 08-Ead-462743:15 Pulse 104 /min Comments: Pattern: Regular O2 SAT 99 % Comments: Room air BP Systolic 118 mm[Hg] Comments: Patient Position: Sitting; Cuff Location: Left Arm; Cuff Size: Standard BP Diastolic 78 mm[Hg] Comments: Patient Position: Sitting; Cuff Location: Left Arm; Cuff Size: Standard Weight 100 lb Height 55.5 in Body Mass Index Calculated 22.83 kg/m2 Body Surface Area Calculated 1.31 m2 73-Vhg-280888:08 Pulse 86 /min Comments: Pattern: Regular O2 [...] Arm; Cuff Size: Standard Weight 87 lb 8-Qkq-154846:56 Comments: unable to obtain height weight reported [...] Results Date Description Value Details :37 TSH (04811) Comments: PATIENT NOT FASTINGPERFORMED BY: CB [facility] Xfiqlc4119 [facility] [id number] BY: BN [facility] [address] [id number] TSH 1.030 {uIU/mL} (Normal) Range: 0.450-4.500 78-Wqt-996251:37 T4, FREE (THYROXINE) Comments: PATIENT NOT FASTINGPERFORMED BY: [facility] Gpjvrf[address] [place] [id number] BY: [address] [id number] (15582) T4,Free(Direct) 0.84 ng/dL (Normal) Range: 0.82-1.77 40-Zze-636326:37 T3, FREE (TRIDOTHYRONINE) Comments: PATIENT NOT FASTINGPERFORMED BY: [facility] Emrrei9813 [address] RoadDublin [place] [id number] BY: [address] [id number] (57613) Triiodothyronine (T3), Free 2.6 pg/mL (Normal) Range: 2.0-4.4 :37 CALCIFIDIOL (59765) VIT D Comments: PATIENT NOT FASTINGPERFORMED BY: [facility] Qndedm0786 [address] [facility] [id number] BY: [address] [id number] 25 Vitamin D, 25-Hydroxy 42.6 ng/mL (Normal) Range: 30.0-100.0 Comments: Vitamin D deficiency has been defined by the [place] of[place] and an Endocrine Society practice guideline as alevel of serum 25-OH vitamin D less than 20 ng/mL (1,2).The Endocrine Society went on to further define vitamin Dinsufficiency as a level between 21 and 29 ng/mL (2).1. IOM ([place] of [employer]). 2010. Dietary reference intakes for calcium and D. [place]: The National Academies Press.2. Gabbi MF, Singh [place], Twin-Bhanu JOSEPH, et al. Evaluation, treatment, and prevention of vitamin D deficiency: an Endocrine Society clinical practice guideline. JCEM. 2010; 96(7):1911-30. 30-Yge-448058:37 TRILEPTAL-OXCARBAZEPINE 005737 Comments: send results to dr sandy storm; PATIENT NOT FASTINGPERFORMED BY: [facility] Tmdkjc6268 [facility] [id number] BY: Lab[address] [id number] ([address]) Oxcarbazepine 49 ug/mL (Abnormal) Range: 10-35 Comments: Detection Limit = 1 75-Ozi-024068:37 CBC with auto diff Comments: send results to dr delgado too; PATIENT NOT FASTINGPERFORMED BY: [facility]CoAtlantiCare [facility] Main[facility] CampusGtgiga5644 [facility] [id number] BY: [address] [id number] ([address]559) Immature Grans (Abs) 0.0 {x10E3/uL} (Normal) Range: [...] 3.77-5.28 WBC 6.3 {x10E3/uL} (Normal) Range: 3.4-10.8 35-Mej-618286:37 METABOLIC PANEL, Comments: send results to dr delgado too; PATIENT NOT FASTINGPERFORMED BY: SEWORKS [facility] [id number] BY: Pulselocker[address] [id number] COMPREHENSIVE (28319) ALT (SGPT) 38 [iU]/L (Abnormal) Range: 0-32 [...] 6-20 Glucose 237 mg/dL (Abnormal) Range: 65-99 31-Plz-770710:37 HGB A1C (76671) Comments: PATIENT NOT FASTINGPERFORMED BY: TV [facility] LabGogiro Yifuat6476 [facility] [id number] BY: LabGogiro[address] [id number] Hemoglobin A1c 6.3 % (Abnormal) Range: 4.8-5.6 Comments: . Prediabetes: 5.7 - 6.4 Diabetes: >6.4 Glycemic control for adults with diabetes: <7.0 17-Ksn-438971:00 Urinalysis, Complete Comments: How was Urine Obtained? [facility] [address] [place], [place], [id number] MUCUS, URINE 0 SEEN {/hpf} (Normal) BACTERIA [...] (Abnormal) CLARITY Clear (Normal) COLOR Yellow (Normal) 96-Gtf-983435:50 Basic Metabolic Profile (BMP) Comments: [facility] [address] [place], [place], [address] GAP 8 (Normal) Range: 5-15 CO2 28.0 [...] A.D.A. criteria.Please note revised GLUCOSE reference range nuywinryp29/02/2018. 06-Yqc-908271:50 CBC W/Diff, Automated Comments: [facility] [address] [place], [place], [address] Absolute Lymph 1.52 {X10_3/ul} (Normal) Range: 0.83-4.51 [...] 4.2-5.4 WBC 6.0 K/mm3 (Normal) Range: 4.4-11.0 63-Jmf-72930:00 Lactic Acid Comments: Yes/No query for Sepsis Lactate Rule [facility] Tvbtstqfnx0343 JONATHAN Sinha, [address] LACTIC ACID 2.0 mmol/L (Normal) Range: 0.4-2.0 Comments: Critical Result(s) Called at: 18:33:30 01/24/2018 by:Yohana saenz [facility] 62-Lft-914320:39 TSH (23350) Comments: PATIENT NOT FASTINGPERFORMED BY: LabCoAtlantiCare [facility] Main[facility] CampusOxlhvw9919 [facility] [id number] BY: LabCo[address] [id number] TSH 1.150 {uIU/mL} (Normal) Range: 0.450-4.500 01-Cja-798970:39 METABOLIC PANEL, Comments: PATIENT NOT FASTINGPERFORMED BY: [facility] Kayewk5898 [facility] [id number] BY: LabCo[address] [id number] COMPREHENSIVE (09217) ALT (SGPT) 18 [iU]/L (Normal) Range: 0-32 [...] Glucose, Serum 138 mg/dL (Abnormal) Range: 65-99 24-Aer-243785:39 CBC W/AUTO DIFF WBC Comments: PATIENT NOT FASTINGPERFORMED BY: CB [facility] Kiezbk3190 [facility] [id number] BY: BN [facility] Anoohbtaqx1232 [facility] [id number] (75811) Immature Grans (Abs) 0.0 {x10E3/uL} (Normal) Range: [...] 6.6 {x10E3/uL} (Normal) Range: 3.4-10.8 :39 TRILEPTAL-OXCARBAZEPINE 439094 Comments: PATIENT NOT FASTINGPERFORMED BY: TV [facility]ass LabCityNews70 [facility] [id number] BY: LabCo[address] [id number] (02641) Oxcarbazepine 28 ug/mL (Normal) Range: 10-35 Comments: Detection Limit = 1 :39 CALCIFIDIOL (27710) VIT D Comments: PATIENT NOT FASTINGPERFORMED BY: TV [facility] Jfxxyy6868 [facility] [id number] BY: LabGogirorp [address] [id number] 25 Vitamin D, 25-Hydroxy 56.3 ng/mL (Normal) Range: 30.0-100.0 Comments: Vitamin D deficiency has been defined by the [place] of[facility] Centercine and an Endocrine Society practice guideline as alevel of serum 25-OH vitamin D less than 20 ng/mL (1,2).The Endocrine Society went on to further define vitamin Dinsufficiency as a level between 21 and 29 ng/mL (2).1. IOM ([place] of [place]). 2010. Dietary reference intakes for calcium and D. [place]: The National Academies Press.2. Gabbi MF, Singh MCKEON, Pollo JOSEPH, et al. Evaluation, treatment, and prevention of vitamin D deficiency: an Endocrine Society clinical practice guideline. JCEM. 2010; 96(7):1911-30. :39 HGB A1C (34494) Comments: PATIENT NOT FASTINGPERFORMED BY: [facility] Mppsdg2091 [facility] [id number] BY: LabCo[address] [id number] Hemoglobin A1c 5.7 % (Abnormal) Range: 4.8-5.6 Comments: . Pre-diabetes: 5.7 - 6.4 Diabetes: >6.4 Glycemic control for adults with diabetes: <7.0 20-Apr-20174:11 THROAT CULTURE (33108) Comments: PATIENT NOT FASTINGPERFORMED BY: [facility] Puzejf3474 [facility] [id number] Information: SRC: Result 1 RRF (Normal) Comments: Routine respiratory jasper Upper Respiratory Culture Final report (Normal) 03-Bxt-336842:35 CBC W/Diff, Automated Comments: [facility] Fbpvpshshb7550 [place], [place], [address] Absolute Lymph 1.23 {X10_3/ul} (Normal) Range: 0.83-4.51 [...] 4.2-5.4 WBC 4.9 K/mm3 (Normal) Range: 4.4-11.0 64-Uun-701015:35 CRP Comments: [facility] Dlcpqdskkg4368 [facility] [address] [place], [place], [address] C-REACTIVE PROT < 2.90 mg/L (Normal) Range: 0.0-3.0 Comments: C-Reactive Protein (CRP) provides useful information for thediagnosis, therapy and monitoring of inflammatory processesand associated diseases. For the evaluation of Relative Riskfor Cardiovascular Dise ase, a High Sensitivity CRP (HSCRP)should be ordered. 2-Eum-736473:15 Culture, Nose Comments: [facility] Vravxnspaw7621 [facility] [address] [place], [place], [address] CUN See Note (Normal) Comments: Comments: THICK [...] S(NF) indicates non-formulary drug at [facility]. Ap proval by Infectious Disease Specialist required before non-formulary drugs may be ordered and/or dispensed. Pseudomonas aeroginosa: REACTION Cefepime $ <=1 S Ceftazidime *NF 2 S Ciprofloxacin $ 2 I Gentamicin $ <=1 S Imipenem *NF 1 S Levofloxacin $ 4 I Piperacillin/Tazobactam $$ 8 S Tobramycin $ <=1 S(NF) rocky joseluises non-formulary drug at [facility]. Approval by Infectious Disease Specialist required before non-formulary drugs may be ordered and/or dispensed. 70-Lga-672109:34 LIPID PANEL (93437) Comments: PATIENT NOT FASTINGPERFORMED BY: PulselockerKenn[place] [address] [facility] [id number] BY: Pulselocker[address] [id number] LDL/HDL Ratio 1.5 {ratio_units} (Normal) Range: 0.0-3.2 Comments: LDL/HDL Ratio Men Women 1/2 Avg.Risk 1.0 1.5 Av g.Risk 3.6 3.2 2X Avg.Risk 6.2 5.0 3X Avg.Risk 8.0 6.1 LDL Cholesterol Calc 76 mg/dL (Normal) Range: 0-99 VLDL Cholesterol Dirk 17 mg/dL (Normal) Range: 5-40 HDL Cholesterol 50 mg/dL (Normal) Triglycerides 84 mg/dL (Normal) Range: 0-149 Cholesterol, Total 143 mg/dL (Normal) Range: 100-199 98-Kao-831254:34 METABOLIC PANEL, Comments: PATIENT NOT FASTINGPERFORMED BY: [employer]6370 [facility] [id number] BY: Pulsel[address] [id number] COMPREHENSIVE (84207) ALT (SGPT) 20 [iU]/L (Normal) Range: 0-32 [...] Glucose, Serum 137 mg/dL (Abnormal) Range: 65-99 85-Slw-922030:34 CBC with auto diff Comments: PATIENT NOT FASTINGPERFORMED BY: CB [facility] Pjimjd6434 [facility] [id number] BY: BN [facility] [address] [id number] (69537) Immature Grans (Abs) 0.0 {x10E3/uL} (Normal) Range: [...] 3.77-5.28 WBC 4.5 {x10E3/uL} (Normal) Range: 3.4-10.8 16-Elm-627362:34 TRILEPTAL-OXCARBAZEPINE 208639 Comments: PATIENT NOT FASTINGPERFORMED BY: Pulsity70 [address] [facility] [id number] BY: [facility] My SurgeryBradley [place]ille [id number] (05420) Oxcarbazepine 23 ug/mL (Normal) Range: 10-35 Comments: Detection Limit = 1 62-Xah-173451:34 HGB A1C (78627) Comments: PATIENT NOT FASTINGPERFORMED BY: NDSSI Holdingsrp Zcxfju0740 [facility] [id number] BY: Pul[address] [id number] Hemoglobin A1c 6.1 % (Abnormal) Range: 4.8-5.6 Comments: . Pre-diabetes: 5.7 - 6.4 Diabetes: >6.4 Glycemic control for adults with diabetes: <7.0 64-Spl-870834:34 CALCIFIDIOL (27660) VIT D Comments: PATIENT NOT FASTINGPERFORMED BY: Sangart Vezdrc7442 [facility] [id number] BY: Pulselocker[address] [id number] 25 Vitamin D, 25-Hydroxy 49.1 ng/mL (Normal) Range: 30.0-100.0 Comments: Vitamin D deficiency has been defined by the [place] and an Endocrine Society practice guideline as alevel of serum 25-OH vitamin D less than 20 ng/mL (1,2).The Endocrine Society went on to further define vitamin Dinsufficiency as a level between 21 and 29 ng/mL (2).1. IOM ([place] of [employer]). 2010. Dietary reference intakes for calcium and D. [place]: The National Academies Press.2. Gabbi MF, Singh MCKEON, Pollo JOSEPH, et al. Evaluation, treatment, and prevention of vitamin D deficiency: an Endocrine Society clinical practice guideline. JCEM. 2010; 96(7):1911-30. 74-Ttt-393342:15 Culture, Throat Comments: [facility] [address] [place], [address] CUT See Note (Normal) Comments: Culture, ThroatMixed [...] S(NF) indicates non-formulary drug at [facility]. Approval by Infec tious Disease Specialist required before non-formulary drugs may be ordered and/or dispensed. :30 Culture, Wound Comments: [facility] [address] [place], [address] CUW See Note (Normal) Comments: Comments: COLLECTED [...] S(NF) indicates non-formulary drug at [facility]. Approval by Infectious Disease Specialist required before non-formulary drugs may be ordered and/or dispensed. Pseudomonas aeroginosa: REACTION Cefepime $ <=1 S Ceftazidime *NF <=1 S Ciprofloxacin $ 0.5 S Gentamicin $ <=1 S Imipenem *NF 1 S Levofloxacin $ 1 S Piperacillin/Tazobactam $$ 8 S Tobramycin $ <=1 S(NF) indicates non-formulary drug at [facility]. Approval b y Infectious Disease Specialist required before non-formulary drugs may be ordered and/or dispensed. :37 Base Excess ISTAT Comments: [place] [address] [place] [address] BE ISTAT 6 mmol/L (Abnormal) 85-Lyv-101046:37 Bicarbonate ISTAT Comments: [place] [address] [place], [place] [address] HCO3 ISTAT 30 mmol/L (Abnormal) Range: 22-26 Comments: Site = R BrachialAllens Test = NAMode = A-CDevice = VentFIO2 = 40Results To = ED MDTime Given = 2350MV = 4.5VT = 250RR = 21PEEP = 7 :37 Blood Gas Specimen Type Comments: [place] [address] [place] [address] BLD GAS TYPE ART (Normal) 62-Elr-195063:37 pCO2 - ISTAT 40.0 {mmHg} (Normal) Comments: [place] [address] [place] [address] Range: 35-45 34-Ryy-113772:37 pH - I-STAT 7.48 (Abnormal) Comments: [place] [address] [place] [address] Range: 7.35-7.45 80-Wyg-172400:37 PO2 I-STAT 65 {mmHG} (Abnormal) Comments: [place] [address] [place] [address] Range: 75-100 :37 SO2 ISTAT 94 % (Abnormal) Comments: [place] [address] [place] [address] Range: 95-99 :37 Total Carbon Dioxide ISTAT Comments: [place] [address] [place] [address] TOTAL CO2 ISTAT 31 mmol/L (Normal) :55 Basic Metabolic Profile (BMP) Comments: [place] [address] [place], [address] GAP 5 (Normal) Range: 5-15 CO2 27.0 [...] :55 CBC W/Diff, Automated Comments: [facility] [address]auf[address] [place], [place], [address] Absolute Lymph 1.51 {X10_3/ul} (Normal) Range: 0.83-4.51 [...] :52 Anaerobic and Aerobic Comments: PERFORMED BY: [facility] Cxbcoi5069 [facility] [id number] Information: buttock SRC:WO Culture Antimicrobial MIHEAD (Normal) [...] 72 hours. Anaerobic Culture Final report (Normal) 8-Rro-306421:39 CBC With Differential/Platelet Comments: PERFORMED BY: [facility] Nnatrw2323 [facility] [id number] BY: [facility] [address] [id number] Immature Grans (Abs) 0.0 {x10E3/uL} (Normal) Range: [...] 3.77-5.28 WBC 5.1 {x10E3/uL} (Normal) Range: 3.4-10.8 6-Iak-820125:39 Comp. Metabolic Panel Comments: PERFORMED BY: CB [facility] Fbxznd0430 [facility] [id number] BY: [facility] [address] [id number] (14) ALT (SGPT) 27 [iU]/L (Normal) Range: [...] 65-99 :39 Oxcarbazepine (Trileptal),S Comments: PERFORMED BY: SEWORKS [facility] [id number] BY: Pulsel[address] [id number] Oxcarbazepine 24 ug/mL (Normal) Range: 10-35 Comments: Detection Limit = 1 :39 TSH 1.640 {uIU/mL} Comments: PERFORMED BY: SEWORKS [facility] [id number] BY: [address] [id number] (Normal) Range: 0.450-4.500 :39 Vitamin B12 and Folate Comments: PERFORMED BY: [employer] [facility] [id number] BY: [address] [id number] Folate (Folic Acid), 8.0 ng/mL (Normal) Comments: A serum folate concentration of less than 3.1 ng/mL isconsidered to represent clinical deficiency. Serum Vitamin B12 1048 pg/mL Range: 211-946 (Abnormal) : Vitamin D, 40.7 ng/mL (Normal) Comments: PERFORMED BY: CB [facility] Atdbbp5604 [address] [facility] [id number] BY: BN [facility] Xgqpvnfdzf9440 [facility] [id number] 39 25-Hydroxy Range: 30.0-100.0 Comments: Vitamin D deficiency has been defined by the [place] and an Endocrine Society practice guideline as alevel of serum 25-OH vitamin D less than 20 ng/mL (1,2).The Endocrine Society went on to further define vitamin Dinsufficiency as a level between 21 and 29 ng/mL (2).1. IOM ([place]). 2010. Dietary reference intakes for calcium and D. [place]: The National Academies Press.2. Gabbi MF, Singh MCKEON, Pollo JOSEPH, et al. Evaluation, treatment, and prevention of vitamin D deficiency: an Endocrine Society clinical practice guideline. JCEM. 2010; 96(7):1911-30. 34-Jxz-969308:00 Urinalysis, Complete Comments: Order Date: 02/28/16How was Urine Obtained? [facility] [address]wnzam[address] [place], [place], [id number] MUCUS, URINE RARE {/hpf} (Normal) BACTERIA 0 [...] CLARITY Sl. Cloudy (Normal) COLOR Yellow (Normal) 49-Jxw-716263:00 Basic Metabolic Profile (BMP) Comments: [facility] [address] [place], [place], [id number] GAP 8 (Normal) Range: 5-15 CO2 26.0 [...] 7-18 GLU 84 mg/dL (Normal) Range: 70-110 34-Dde-958890:00 CBC W/Diff, Automated Comments: [facility] [address]magant[address] [place], [place], [id number] Absolute Lymph 1.11 {X10_3/ul} (Normal) Range: 0.83-4.51 [...] (Normal) Range: 4.4-11.0 :00 Lactic Acid Comments: [facility] [address] [place], [place], [id number] LACTIC ACID 1.6 mmol/L (Normal) Range: 0.4-2.0 87-Brh-438831:00 Lipase Comments: [facility] [address] [place], [place], [address] LIPASE 177 U/L (Normal) Range: 73-393 40-Awa-331687:00 Liver Profile Comments: [facility] Jlhnwzjikd0983 [facility] [address] [place], [place], [address] D BILI 0.08 mg/dL (Normal) Range: 0.00-0.30 [...] (Normal) Range: 6.4-8.2 :30 CDIFF (Molecular) Comments: [facility] [address] [place], [address] CDIFF See Note (Normal) Comments: Cdiff-MolecularC. Diff DNA Negative- No toxigenic C. Diff DNA Detected :30 ENTERIC PATHOGEN PANEL STOOL Comments: [address], [address] EP PANEL See Note (Normal) [...] DetectedRotavirus Not Detected :30 Stool Lactoferrin/WBC Comments: [address] [place], [address] WBCST See Note (Normal) Comments: Stool Lacto/WBCFecal WBC Lactoferrin Negative: No Fecal WBC Lactoferrin present :30 Stool Occult Blood iFOB Comments: [address] [place], [address] STOB See Note (Normal) Comments: STOB iFOBOccult Blood Negative 25-Whc-652554:35 Urinalysis, Complete Comments: How was Urine Obtained? [facility]ENWMer[facility] [address]uecrj[address] [place], [address] MUCUS, URINE 0 SEEN {/hpf} [...] (Normal) CLARITY Cloudy (Normal) COLOR Yellow (Normal) 90-Cap-373651:00 CBC W/Diff, Automated Comments: [facility] [address] [place], [address] SMEAR COMMENT SCANNED (Normal) Comments: LYMPHOPENIA NOTED [...] Range: 4.4-11.0 :00 Comprehensive Metabolic Profil Comments: [facility] [address] [place], [place], [id number] GAP 9 (Normal) Range: 5-15 CO2 29.0 [...] 7-18 GLU 84 mg/dL (Normal) Range: 70-110 40-Dej-108862:00 Lactic Acid Comments: [facility] [address] [place], [place], [id number] LACTIC ACID 2.6 mmol/L (Abnormal) Range: 0.4-2.0 80-Siz-189486:00 Partial Thromboplast Time Comments: [facility] [address] [place], [address] PTT 26.7 s (Normal) Range: 24.1-36.2 27-Yis-065899:00 Prothrombin Time w/INR Comments: [facility] [address] [place], [place], [address] INR 1.0 (Normal) PROTIME 13.1 s (Normal) Range: 11.7-14.9 :25 PREALBUMIN (52801) Comments: PERFORMED BY: [facility] Teimfx5657 [facility] [id number] Prealbumin 27 mg/dL (Normal) Range: 9-31 Comments: [...] - 36 >70 years 9 - 32 72-Wyt-421923:16 Clostridium difficile Toxin Comments: PERFORMED BY: [facility] Xrixal8895 [facility] [id number] A+B, EIA (57283) C difficile Toxins A+B, EIA Negative (Normal) 35-Jvh-234447:00 Culture, Urine Comments: [facility] [address] [place], [place], [address] CUUR See Note (Normal) Comments: Urine CultureCulture exhibits no growth. 01-Hzf-342479:00 Urinalysis, Complete Comments: How was Urine Obtained? CLEAN [facility] [address] [place], [place], [id number] MUCUS, URINE 0 SEEN {/hpf} (Normal) BACTERIA [...] CLARITY Sl. Cloudy (Normal) COLOR Yellow (Normal) 79-Htp-357979:30 Culture, Urine Comments: [facility] [address] [place], [address] CUUR See Note (Normal) Comments: Urine CultureORGANISM 1: Enterococcus faecalisColony Count >100,000 Enterococcus faecalis: REACTION Ampicillin $ <=2 S Benzylpenicillin NF 2 S Ciprofloxacin $ <=0.5 S Gentamicin SYN-S S Levofloxacin $ 1 S Linezolid $$$$ 2 S Nitrofurantoin $ <=16 S Streptomycin $ SYN- S S Tetracycline NF >=16 R Vancomycin $ 1 S(NF) indicates non-formulary drug at [facility]. Approval by Infectious Disease Specialist required before non-formulary drugs may be ordered and/or dispensed. * CLSI guidelines does not recommend testing of cephalosporins. This interpretation is deduced from Beta-lactam/penicillin results. 35-Upn-584480:30 Urinalysis, Complete Comments: How was Urine Obtained? Urine, RandomWMer[facility] [address]xze[address] [place], [address] MUCUS, URINE 0 SEEN {/hpf} [...] CLARITY Sl. Cloudy (Normal) COLOR Yellow (Normal) 71-Mkk-585240:00 ENTERIC PATHOGEN PANEL STOOL Comments: [facility] Vnzaaygfku3588 [facility] [place], [address] EP PANEL See Note (Normal) Comments: RESULTS CALLED TO DR. HOUSTON 09/10/15 @1952 BY THADDEUS.EP PANEL STOOLNot detected for Campylobacter group, Salmonella species, Shigella species, Vibrio Group, Yersinia enterocolitica, EHEC (Shiga Toxin 1, Shiga Toxin 2), Norovirus Gl/Gll, and Rotavirus A. Other common stool pathogens are not detected on this panel include: Aeromonas/Plesiomonas or parasites. Order testing for these organisms [facility] if suspected. This is an amplified DNA test which makes it both specific and sensitive. CAMPYLOBACTER Not DetectedSalmonella Not DetectedShigella sp. Not DetectedShiga Toxin Not DetectedYersinia Not DetectedVIBRIO Not DetectedNorovirus Not DetectedRotavirus Not Detected 43-Jas-949198:00 Stool Lactoferrin/WBC Comments: [facility] [address] [place], [place], [address] WBCST See Note (Normal) Comments: RESULTS CALLED TO DR. HOUSTON 09/10/15 @1952 BY THADDEUS.Stool Lacto/WBCFecal WBC Lactoferrin Negative: No Fecal WBC Lactoferrin present 81-Bpn-941249:00 Stool Occult Blood iFOB Comments: [facility] [address] [place], [address] STOB See Note (Normal) Comments: RESULTS CALLED TO DR. HOUSTON 09/10/15 @1952 BY CATALINO iFOBOccult Blood Negative :29 CBC with auto diff Comments: PERFORMED BY: Pulselocker Ivfstc3291 [facility] [id number] BY: [address] [id number] ([address]) Immature Grans (Abs) 0.0 {x10E3/uL} (Normal) Range: [...] 3.4-10.8 :29 METABOLIC PANEL, Comments: PERFORMED BY: PulselockerRUSTMdxrph3829 [facility] [id number] BY: [address] [id number] COMPREHENSIVE (98753) ALT (SGPT) 17 [iU]/L (Normal) Range: 0-32 [...] 73 mg/dL (Normal) Range: 65-99 20-Jan-20161:29 CALCIFIDIOL (77502) VIT D Comments: PERFORMED BY: [facility] Uamrkp8449 [facility] [id number] BY: [facility] [address] [id number] 25 Vitamin D, 25-Hydroxy 39.5 ng/mL (Normal) Range: 30.0-100.0 Comments: Vitamin D deficiency has been defined by the [place] of[place] and an Endocrine Society practice guideline as alevel of serum 25-OH vitamin D less than 20 ng/mL (1,2).The Endocrine Society went on to further define vitamin Dinsufficiency as a level between 21 and 29 ng/mL (2).1. IOM ([place]). 2010. Dietary reference intakes for calcium and D. [place]: The National Academies Press.2. Gabbi MF, Singh MCKEON, Pollo JOSEPH, et al. Evaluation, treatment, and prevention of vitamin D deficiency: an Endocrine Society clinical practice guideline. JCEM. 2010; 96(7):1911-30. 20-Jan-20161:29 TRILEPTAL-OXCARBAZEPINE [id number] Comments: PERFORMED BY: CB [facility] Ntsklw7439 [facility] [id number] BY: BN [facility] Qjmdquqlij4511 [facility] [id number] ([address]) Oxcarbazepine 38 ug/mL (Abnormal) Range: 10-35 Comments: Detection Limit = 1 15-Jyb-345418:30 CBC W/Diff, Automated Comments: [facility] [address] [place], [place], [address] Absolute Lymph 0.90 {X10_3/ul} (Normal) Range: 0.83-4.51 [...] 4.2-5.4 WBC 5.2 K/mm3 (Normal) Range: 4.4-11.0 05-Tnj-581792:30 Comprehensive Metabolic Profil Comments: [facility] [address] [place], [place], [address] GAP 8 (Normal) Range: 5-15 CO2 26.0 [...] 200 mg/dLsuggests DIABETES MELLITUS per A.D.A. criteria. 06-Yxo-069310:30 Lipid Profile Comments: [facility] [address] [place], [address] VLDL 38 mg/dL (Normal) Range: 5-40 LDL [...] 200-240 mg/dL Borderline >240 mg/dL High Risk 74-Msk-430180:30 Prealbumin Comments: [facility] [address] [place], [place], [address] PREALBUMIN 26.0 mg/dL (Normal) Range: 20.0-40.0 35-Xfd-904527:30 Thyroid Stim Hormone (TSH) Comments: [facility] [address] [place], [address] TSH 1.02 {uIU/mL} (Normal) Range: 0.358-3.74 09-Gge-302793:30 Trileptal-Oxcarbazepine Comments: [facility] (refer to report for specific site)refer to report for address and phone number TRILEPT [id number] 38 ug/mL (Abnormal) Range: 10-35 Comments: Detection Limit = 1Performed at: [facility] [id number] Director: Reji Gibson MD, Phone: [phone] 99-Vog-976097:30 Vitamin D,25 Hydroxy Comments: [facility] Ybzcxuzbqv8267 [facility] [place], [address] Vitamin D 25-OH 38.4 ng/mL (Normal) Comments: Vitamin D 25(OH) Status Range Deficiency <20 ng/mL (50nmol/L) Insuffciency 20 - 30 ng/mL (50 - 75 nmol/L) Sufficiency 30 - 100 ng/mL (75 - 250 nmol/L) Toxicity >100 ng/mL (>250 nmol/L) 8-Ary-703299:45 CBC-Complete Blood Cnt No Diff Comments: Test performed at:[facility] [address] [place] [address] MPV 10.5 fL (Normal) Range: [...] 4.2-5.4 WBC 6.3 K/mm3 (Normal) Range: 4.4-11.0 2-Fzl-003310:45 Comprehensive Metabolic Profil Comments: Is Patient Taking Vitamins or Folic Acid Supplements? NTest performed at:[facility] Mkkoffcehg8497 [facility] [address] [place], [place] [address] GAP 7 (Normal) Range: 5-15 CO2 29.0 [...] <126 mg/dLsuggests IMPAIRED HOMEOSTASIS per A.D.A. criteria. 8-Ych-983272:45 CRP Comments: Is Patient Taking Vitamins or Folic Acid Supplements? NTest performed at:[facility] [address] [place] [address] C-REACTIVE PROT < 2.90 mg/L (Normal) Range: 0.0-3.0 Comments: C-Reactive Protein (CRP) provides useful information for thediagnosis, therapy and monitoring of inflammatory processesand associated diseases. For the evaluation of Relative Riskfor Cardiovascular Dise ase, a High Sensitivity CRP (HSCRP)should be ordered. 4-Vfb-221011:45 Erythrocyte Sed Rate Comments: Test performed at:[facility] [address] [place] [address] SED RATE 13 mm/h (Normal) Range: 0-20 4-Nuv-642018:45 Folates, (Folic Acid) Comments: Is Patient Taking Vitamins or Folic Acid Supplements? NTest performed at:[facility] [address] [place] [address] FOLATES 15.70 ng/mL (Normal) Range: 3.1-17.5 7-Mjh-003389:45 Free T3 Comments: Is Patient Taking Vitamins or Folic Acid Supplements? NTest performed at:[facility] [address] [place] [address] FREE T3 2.4 pg/mL (Normal) Range: 2.18-3.98 9-Ohz-358046:45 Miscellaneous Lab Procedure Comments: Test(s) Ordered: OXCARBAZEPINE, #[id number], RED TOP SERUM/RFTest performed at:[facility] [address] [address] MISC Comments: Oxcarbazepine (Trileptal), S Oxcarbazepine 35 ug/mL Ref: Detection Limit=1 TESTING PERFOR MED AT [facility] (Normal) rp. ORIGINAL REPORT ON FILE IN LAB CONTAINS ADDITIONAL TEST SITE INFORMATION. TEST 4-Dnl-124274:45 Prealbumin Comments: Is Patient Taking Vitamins or Folic Acid Supplements? NTest performed at:[facility] [address]xs[address] [place] [address] PREALBUMIN 30.9 mg/dL (Normal) Range: 20.0-40.0 3-Vof-871847:45 ,Serum,hCG Quali. Comments: Test performed at:[facility] [address] [place] [address] HCGSQUAL NEGATIVE {Negative} (Normal) Range: 0-9 Nonpreg HCG Qual triggr < 1 m[iU]/mL (Normal) :45 Prolactin Comments: Is Patient Taking Vitamins or Folic Acid Supplements? NTest performed at:[facility] [address] [place] [address] PROLACTIN 9.5 ng/mL (Normal) Comments: NORMAL REFERENCE RANGES FEMALE NON- 2.2 - 30.3 ng/mL 8.1 - 347.6 ng/mL POST-MENOPAUSAL 0.7 - 3 1.5 ng/mL MALE 2.5 - 17.4 ng/mLNEW TEST METHOD AND REFERENCE RANGES FEBRUARY 01, 201218-Dec-20148-Tfg-365331:45 T4 Free Direct Comments: Is Patient Taking Vitamins or Folic Acid Supplements? NTest performed at:[address] [address] T4 FREE DIRECT 0.74 ng/dL (Abnormal) Range: 0.76-1.46 2-Xgy-016586:45 Thyroid Stim Hormone (TSH) Comments: Is Patient Taking Vitamins or Folic Acid Supplements? NTest performed at:[address] [address] TSH 1.39 {uIU/mL} (Normal) Range: 0.358-3.74 1-Ciq-298588:45 Urinalysis, Routine (Dipstick) Comments: How was Urine Obtained? Urine, RandomTest performed at:[facility] [address] [place] [address] LEUK ESTERASE 500 /ul (Abnormal) OCCULT BLOOD-UR Negative /ul (Normal) NITRITE UR Negative (Normal) UROBILI Normal mg/dL (Normal) PROT DIPSTX Negative mg/dL (Normal) pH UR 8.0 (Normal) Range: 5.0 - 8.0 SP.GR. DIPSTX 1.010 (Normal) Range: 1.002-1.030 KETONE UR Negative mg/dL (Normal) BILIRUBIN URINE Negative mg/dL (Normal) GLUCOSE, UR Normal mg/dL (Normal) CLARITY Sl. Cloudy (Normal) COLOR Yellow (Normal) 5-Rgp-862803:45 Vitamin B12 1089 pg/mL (Abnormal) Comments: Test performed at:[address] [address] Range: 211-911 0-Jrw-975431:45 Vitamin D,25 Hydroxy Comments: Test performed at:[address] [address] Vitamin D 25-OH 23.9 ng/mL (Normal) Comments: Vitamin D 25(OH) Status Range Deficiency <20 ng/mL (50nmol/L) Insuffciency 20 - 30 ng/mL (50 - 75 nmol/L) Sufficiency 30 - 100 ng/mL (75 - 250 nmol/L) Toxicity >100 ng/mL (>250 nmol/L) 90-Mlp-919458:43 ALBUMIN SERUM (80063) Comments: PATIENT NOT FASTINGPERFORMED BY: [facility] Kqjiek[address] [place] [id number] Albumin, Serum 4.7 g/dL (Normal) Range: 3.5-5.5 72-Epo-450084:43 PREALBUMIN (10969) Comments: PATIENT NOT FASTINGPERFORMED BY: [facility] Czkzwo38[address] [place] [id number] Prealbumin 29 mg/dL (Normal) Range: 20-40 41-Qdp-924196:21 ANJELICA CULTURE-OTHER (57240) Comments: PATIENT NOT FASTINGPERFORMED BY: [facility] Lvwlsh3603 [address] [facility] [place] [id number] Information: SRC:THRT [id number] Result 1 RRF (Normal) Comments: Routine respiratory jasper Upper Respiratory Culture Final report (Normal) 96-Ypp-663002:43 PROLACTIN (09133) Comments: PATIENT NOT FASTINGPERFORMED BY: [facility] Swkmnr2059 [address] [place] [id number] Prolactin 13.8 ng/mL (Normal) Range: 4.8-23.3 86-Jzy-532172:43 T3, FREE (TRIDOTHYRONINE) (08404) Comments: PATIENT NOT FASTINGPERFORMED BY: [facility] Bmbira77[address]Dublin [place] [id number] Triiodothyronine,Free,Serum 3.3 pg/mL (Normal) Range: 2.0-4.4 08-Oos-326058:43 T4, FREE (THYROXINE) (95121) Comments: PATIENT NOT FASTINGPERFORMED BY: [facility] Scggzc2060 [address] [place] [id number] T4,Free(Direct) 1.14 ng/dL (Normal) Range: 0.82-1.77 91-Rex-447887:43 TSH (19095) Comments: PATIENT NOT FASTINGPERFORMED BY: [facility] Djnhcr6651 [address] [facility] [id number] Information: [id number] TSH 1.580 {uIU/mL} (Normal) Range: 0.450-4.500 :00 [...] CDIFF See Note (Normal) Comments: FAXED TO [id number] C. Diff DNA Positive-Toxigenic C. Difficile DNA [...] spora, or Mi crosporidia. TESTING PERFORMED AT [facility]. ORIGINAL REPORT ON FILE IN LAB CONTAINS ADDITIONAL TEST SITE INFORMATION. Ova/Parasite Exam NO OVA, CYSTS, OR PARASITES FOUND. : STOB See Note (Normal) Comments: Occult Blood Negative : WBCST See Note (Normal) Comments: Fecal WBC Lactoferrin Negative: No Fecal WBC Lactoferrin present :15 CDIFF See Note (Normal) Comments: C. Diff DNA Negative- No toxigenic C. Diff DNA Detected 6-Jfs-313563:55 Oxcarbazepine (Trileptal),S Comments: PERFORMED BY: [address] [id number] BY: [address] [id number] Oxcarbazepine 32 ug/mL (Normal) Range: 10-35 Comments: Detection Limit = 1 :55 CALCIFIDIOL (06534) VIT D Comments: PERFORMED BY: [facility] [address] [id number] BY: [address] [id number] 25 Vitamin D, 25-Hydroxy 27.4 ng/mL (Abnormal) Range: 30.0-100.0 Comments: Vitamin D deficiency has been defined by the [place] of[place]icine and an Endocrine Society practice guideline as alevel of serum 25-OH vitamin D less than 20 ng/mL (1,2).The Endocrine Society went on to further define vitamin Dinsufficiency as a level between 21 and 29 ng/mL (2).1. IOM ([place] of [employer]). 2010. Dietary reference intakes for calcium and D. [place]: The National Academies Press.2. Gabbi MF, Singh MCKEON, Pollo JOSEPH, et al. Evaluation, treatment, and prevention of vitamin D deficiency: an Endocrine Society clinical practice guideline. JCEM. 2010; 96(7):1911-30. 0-Rvs-597555:55 Folate (15862) Comments: PERFORMED BY: ImagineOptixox RoadDublin [place] [id number] BY: Pulselocker[address] [id number] Folate (Folic Acid), Serum 16.3 ng/mL (Normal) Comments: A serum folate concentration of less than 3.1 ng/mL isconsidered to represent clinical deficiency. 5-Mnl-311811:55 VITAMIN B-12 (CYANOCOBALAMIN) Comments: PERFORMED BY: Greencloud Technologiesblin [place] [id number] BY: [address] [id number] ([address]) Vitamin B12 889 pg/mL (Normal) Range: 211-946 :55 TSH (00137) Comments: PERFORMED BY: [facility]70 [address] RoadDublin [place] [id number] BY: [facility] [id number] TSH 1.670 {uIU/mL} (Normal) Range: 0.450-4.500 9-Qlo-618696:55 SED RATE ERYTHROCYTE Comments: PERFORMED BY: [facility] [employer] [id number] BY: [facility] [id number] (14334) Sedimentation Rate-Westergren 6 mm/h (Normal) Range: 0-32 :55 METABOLIC PANEL, Comments: PERFORMED BY: HARRIET [employer]lin6370 [facility] [id number] BY: LabCo[place] 291767 [facility] [id number] COMPREHENSIVE (92188) ALT (SGPT) 11 [iU]/L (Normal) Range: 0-32 [...] cells when received.This may adversely affect serumChemistries. 0-Gqm-021774:55 C-REACTIVE PROTEIN (66856) Comments: PERFORMED BY: [employer]lin6370 [facility] [id number] BY: [facility] [id number] C-Reactive Protein, Quant 0.9 mg/L (Normal) Range: 0.0-4.9 8-Udi-350648:55 CBC (AUTO) (45088) Comments: PERFORMED BY: Pul[place]ockerKenneth [place] 7131070 [facility] [id number] BY: [address] [id number] Platelets 213 {x10E3/uL} (Normal) Range: 140-415 Comments: [...] of these values in the reference population. 5-Zpu-724301:29 ANJELICA CULTURE-OTHER (07082) Comments: PATIENT NOT FASTINGPERFORMED BY: [facility] [id number] Information: SRC:LAMBERTO [id number] Result 1 RRF (Normal) Comments: Routine respiratory jasper Upper Respiratory Culture Final report (Normal) 2-Gio-985210:03 Rapid Strep Test, Office (48573) Rapid Strep Test, Negative (Normal) Office 43-Uxd-383045:55 CDIF See Note (Normal) Comments: A positive [...] in these cases. C. DIFF ANTIGENS POSITIVE 73-Vhm-896278:30 CDIF See Note (Normal) Comments: RESULTS CALLED TO Shanita LEMUS 07/29/12 1458MARKUS ESQUEDA.REPORT READ BACK BY ANNY . A positive [...] in these cases. C. DIFF ANTIGENS POSITIVE 23-Avw-883517:00 CDIF See Note (Normal) Comments: A positive [...] these cases. C. DIFF ANTIGENS NEGATIVE : CUUR URC Culture exhibits no growth. (Normal) [...] (Abnormal) UCLAR CLEAR (Normal) UCOL STRAW (Normal) 5-Ghc-556294:05 C DIF TOXIN/AG See Note (Normal) Comments: C. DIFF ANTIGENS NEGATIVE 94-Ysp-384986:2 TRILEPT [id number] 20 ug/mL (Normal) Range: 10-35 4 Comments: Detection Limit = 1Performed at: [facility] [address] [id number] Director: Reji Gibson MD, Phone: [phone] 84-Fsj-555008:1 C DIF TOXIN/AG See Note (Normal) Comments: RESULTS CALLED TO 06/23/112004 VONDA ELAM.REPORT READ BACK BY SAME . * This is an amended result. * A 5 prior result that was reported as final has been changed.06/23/112004 by IESHAPreviously reported as: C. DIFF ANTIGENS POSITIVE 50-Hww-376737:46 COMP METABOLIC GAP 11 (Normal) Range: 5-15 [...] 7-18 GLU 71 mg/dL (Normal) Range: 70-110 91-Qzh-839132:41 CBCD ABSOLUTE NEUT 5.0 3/uL (Normal) Range: [...] Cyclospora, or Microspo ridia. TESTING PERFORMED AT [facility]. ORIGINAL REPORT ON FILE IN LAB CONTAINS ADDITIONAL TEST SITE INFORMATION. OVA/ PARASITES EXAM NO OVA, CYSTS, OR PARASITES FOUND. :21 WBC,STOOL See Note (Normal) Comments: RESULTS CALLED TO OFFICE TO RejiQKCOSEVB84/04/10 1151 KRISTIAN MILLER.REPORT READ BACK BY SAME . Comments: FECAL WBCs NONE SEEN :20 C DIF TOXIN/AG See Note (Normal) Comments: COPY OF REPORT SENT TO INFECTION CONTROL 06/25/10 143MARIAH.RESULTS CALLED TO CHRISTEN 06/25/10 1432 CRISTA BUSTAMANTE DIFF ANTIGENS POSITIVE : CUL STOOL/SHIG CULTURE, [...] Cyclospora, or Microspo ridia. TESTING PERFORMED AT [facility]. ORIGINAL REPORT ON FILE IN LAB CONTAINS ADDITIONAL TEST SITE INFORMATION. OVA/ PARASITES EXAM NO OVA, CYSTS, OR PARASITES FOUND. :20 WBC,STOOL See Note (Normal) Comments: FECAL WBCs NONE SEEN 61-Cio-113337:14 C DIF TOXIN See Note (Normal) :44 O AND P See Note (Normal) Comments: OVA AND PARASITES EXAM, ROUTINE These results were obtained using wet preparation(s) and trichrome stained smear. This test does not include testing for Crytosporidium parvum, Cyclospora, or Microspo ridia. TESTING PERFORMED AT [facility]. ORIGINAL REPORT ON FILE IN LAB CONTAINS [...] Cyclospora, or Microspo ridia. TESTING PERFORMED AT [facility]. ORIGINAL REPORT ON FILE IN LAB CONTAINS [...] :00 TSH 1.63 {uIU/mL} (Normal) Range: 0.358-3.74 86-Omy-621035:00 CULTURE, SPUTUM GRAM STAIN See Note (Normal) Comments: GRAM STAIN RARE WHITE BLOOD CELLS RARE GRAM POSITIVE COCCI RARE GRAM NEGATIVE RODS Plan of Care Name Dates Details Instructions Type II diabetes mellitus, well controlled : Continue Current Prescription(s) Indication: Type II diabetes mellitus, well controlled Convulsions : Reviewed Guide [place] Letter Indication: Convulsions Neuromuscular scoliosis : Follow [...] Cystitis, acute Planned Observations URINE ANJELICA CULTURE-IDENTIFICATN (06080)Indication: Abnormal urine On: 1-Scd-708470:25 Request MRSA Culture ([id number])Indication: Thick sputum On: 5-Kgh-878866:32 Request Anaerobic & Aerobic Culture (72653)Indication: Thick sputum On: 61-Xrd-000051:46 Request Comments: collected from trachea stoma Anaerobic & Aerobic Culture (18592)Indication: Cellulitis of groin, right On: :44 Request TRILEPTAL-OXCARBAZEPINE [id number] (39656)Indication: Diarrhea On: :24 Request VITAMIN B12 AND FOLATES (73697)Indication: Diarrhea On: : Request CALCIFEDIOL (49890)Indication: Diarrhea On: :24 Request CALCIFEDIOL (92856)Indication: Diarrhea On: : Request TSH (THYROID STIMULATING HORMONE) (80778)Indication: Diarrhea On: : Request METABOLIC PANEL, COMPREHENSIVE (11721)Indication: Diarrhea On: : Request CBC, PLATELETS & AUT DIFF (50877)Indication: Diarrhea On: : Request OVA & PARASITE DIR SMEAR (87510)Indication: Diarrhea On: :46 Request ANJELICA CULTURE-STOOL (15407)Indication: Diarrhea On: 65-Trn-284575:46 Request OCCULT BLOOD FECES SCREEN (91648)Indication: Diarrhea On: :46 Request LEUKOCYTE COUNT, FECAL (58490)Indication: Diarrhea On: 06-Cso-901394:46 Request C-DIFFICILE, STOOL (85833)Indication: Diarrhea On: 40-Fnq-801298:46 Request OVA & PARASITE DIR SMEAR (88813)Indication: C. difficile diarrhea On: 6-Xnp-813467:50 Request OCCULT BLOOD FECES SCREEN (21455)Indication: C. difficile diarrhea On: 3-Mzq-916831:50 Request ANJELICA CULTURE-STOOL (79549)Indication: C. difficile diarrhea On: 5-Ekb-582959:50 Request LEUKOCYTE COUNT, FECAL (45006)Indication: C. difficile diarrhea On: :50 Request C-DIFFICILE, STOOL (80021)Indication: C. difficile diarrhea On: :49 Request Clostridium difficile Culture (14441)Indication: Diarrhea On: 0-Cff-823435:52 Request URINALYSIS, W/ MICRO (48465)Indication: Dysuria On: :56 Request URINE ANJELICA CULTURE-SISSY COL COUNT (34428)Indication: Dysuria On: :54 Request OCCULT BLOOD FECES SCREEN (51398)Indication: Diarrhea On: :01 Request LEUKOCYTE COUNT, FECAL (00697)Indication: Diarrhea On: :05 Request ANJELICA CULTURE-STOOL (10115)Indication: Diarrhea On: :05 Request Clostridium difficile Toxin A+B, EIA (93433)Indication: Diarrhea On: :05 Request TRILEPTAL-OXCARBAZEPINE 863256 (46289)Indication: Convulsions On: 58-Dfr-978391:55 Request PREALBUMIN (49020)Indication: Nutritional assessment On: :45 Request CALCIFIDIOL (83834) VIT D 25Indication: Vitamin D deficiency On: :44 Request TSH (64289)Indication: Hypertension On: :44 Request METABOLIC PANEL, COMPREHENSIVE (64815)Indication: Hypertension On: :44 Request LIPID PANEL (07797)Indication: Hypertension On: :44 Request CBC with auto diff (38237)Indication: Hypertension On: :44 Request Metabolic Panel, Basic (39232)Indication: Abnormal urine On: 3-Odr-432162:03 Request VITAMIN B12 AND FOLATES (86461)Indication: Abnormal urine On: :03 Request CALCIFEDIOL (97628)Indication: Abnormal urine On: 1-Tkx-274535:03 Request Comments: vit d3 URINE ANJELICA CULTURE-SISSY COL COUNT (37892)Indication: Abnormal urine On: 8-Pho-828071:52 Request TRILEPTAL-OXCARBAZEPINE 576713 (21676)Indication: Cerebral palsy On: :46 Request HCG Qualitative, Serum (90086)Indication: Amenorrhea On: 51-Tpb-707802:45 Request PROLACTIN (59967)Indication: Amenorrhea On: :44 Request PREALBUMIN (82443)Indication: Cerebral palsy On: 60-Pnm-076252:43 Request URINALYSIS (54412)Indication: Fatigue On: :43 Request T3, FREE (TRIDOTHYRONINE) (65565)Indication: Fatigue On: :43 Request T4, FREE (THYROXINE) (93599)Indication: Fatigue On: :43 Request Folate (89702)Indication: Fatigue On: :42 Request CALCIFIDIOL (79364) VIT D 25Indication: Fatigue On: :42 Request VITAMIN B-12 (CYANOCOBALAMIN) (91753)Indication: Fatigue On: :42 Request TSH (43808)Indication: Fatigue On: :42 Request SED RATE ERYTHROCYTE (00156)Indication: Fatigue On: :42 Request METABOLIC PANEL, COMPREHENSIVE (62901)Indication: Fatigue On: :42 Request C-REACTIVE PROTEIN (82459)Indication: Fatigue On: :42 Request CBC (AUTO) (83958)Indication: Fatigue On: :42 Request CULTURE,BODY FLUID (58430)Indication: Irregular Menstrual Cycle (Renamed from Irregular bleeding) On: 73-Cyb-311516:07 Request Comments: urine Rapid Strep Test, Office (22189)Indication: Pharyngitis, acute On: 45-Sbb-262546:51 Request Urinalysis, Office (45375)Indication: Fatigue On: 62-Cgg-477805:49 Request HgA1C , Office (59924)Indication: Hyperglycemia On: 11-Kfm-855819:41 Request CALCIFIDIOL (15675) VIT D 25Indication: Vitamin D deficiency On: 16-Wjd-315907:32 Request TRILEPTAL-OXCARBAZEPINE 663793 (93201)Indication: Convulsions On: :31 Request Metabolic Panel, Comprehensive (02976)Indication: Acute renal failure On: :31 Request CBC with manual diff (27371)Indication: Hypertension On: :31 Request CBC with manual diff (78148)Indication: Thrombocytopenia, unspecified On: :35 Request Comments: in citrate tube FIBRINOGEN (18323)Indication: Thrombocytopenia, unspecified On: Request PTT (Activated Partial Thromboplastin Time) (47870)Indication: Thrombocytopenia, unspecified On: Request PT (Prothrobim Time) (24722)Indication: Thrombocytopenia, unspecified On: Request HEPATITIS C ANTIBODY (20474)Indication: Thrombocytopenia, unspecified On: Request HEPATITIS B CORE ANTBD-IGG/IGM (66107)Indication: Thrombocytopenia, unspecified On: Request HEPATITIS B SURFACE ANTIGEN (70112)Indication: Thrombocytopenia, unspecified On: Request HEPATITIS B SURFACE ANTIBODY (70302)Indication: Thrombocytopenia, unspecified On: Request Methylmalonic acid, serum 46212Kgwwnzglvc: Thrombocytopenia, unspecified On: Request Vitamin B-12 (cyanocobalamin) (47924)Indication: Thrombocytopenia, unspecified On: Request Sed Rate Erythrocyte (48718)Indication: Thrombocytopenia, unspecified On: Request Metabolic Panel, Comprehensive (82190)Indication: Thrombocytopenia, unspecified On: Request JENNY (ANTINUCLEAR ANTIBODY) (37882)Indication: Thrombocytopenia, unspecified On: Request CBC with manual diff (85174)Indication: Convulsions On: :31 Request Clostridium difficile Toxin A+B, EIA (77661)Indication: Diarrhea On: 31 Request OVA & PARASITE DIR SMEAR (65482)Indication: Diarrhea On: 44 Request OCCULT BLOOD FECES SCREEN (73933)Indication: Diarrhea On: 44 Request LEUKOCYTE COUNT, FECAL (94436)Indication: Diarrhea On: 44 Request ANJELICA CULTURE-STOOL (71714)Indication: Diarrhea On: 44 Request Clostridium difficile Toxin A+B, EIA (70097)Indication: Diarrhea On: :22 Request C DIFF AMPLIFIED PROBE (24580)Indication: Diarrhea On: 44-Kuy-47531:51 Request Metabolic Panel, Comprehensive (42170)Indication: Acute renal failure On: :08 Request Comments: recheck prior to August. CALCIFIDIOL (40205) VIT D 25Indication: Vitamin D deficiency On: :08 Request Comments: recheck prior to August. TRILEPTAL-OXCARBAZEPINE 044070 (95824)Indication: Convulsions On: :08 Request Culture, Stool (85658)Indication: Diarrhea On: :01 Request C DIFF AMPLIFIED PROBE (19239)Indication: Diarrhea On: :01 Request C DIFF AMPLIFIED PROBE (20572)Indication: Diarrhea On: 07-Zxh-259236:32 Request C DIFF AMPLIFIED PROBE (35986)Indication: Diarrhea On: 16-Hjj-862668:51 Request URINE ANJELICA CULTURE-IDENTIFICATN (48276)Indication: Backache On: 1-Miu-041336:58 Request URINALYSIS (70550)Indication: Backache On: 0-Bnc-531431:58 Request Metabolic Panel, Comprehensive (88290)Indication: Profound mental retardation (Renamed from IQ under 20) On: 8-Lbx-529024:25 Request Comments: Dr Pino neurologist at [facility] CBC (Auto) (73936)Indication: Profound mental retardation (Renamed from IQ under 20) On: 9-Qau-685817:25 Request TRILEPTAL-OXCARBAZEPINE 237692 (79716)Indication: Cerebral palsy On: 7-Zxr-900460:24 Request COLUMN CHROMATOGRAPHY, SISSY, SINGLE (83685)Indication: Convulsions On: 59-Jbi-268974:54 Request Comments: trileptal [id number] Clostridium difficile Toxin A+B, EIA (71129)Indication: Diarrhea On: 41-Iig-630708:26 Request CBC (Auto) (80659)Indication: Convulsions On: 99-Qdo-263876:25 Request Metabolic Panel, Comprehensive (04691)Indication: Convulsions On: 41-Umu-526450:24 Request ANJELICA CULTURE-OTHER (50554)Indication: Pharyngitis, acute On: 6-Vld-520683:44 Request C.Difficile, Stool (56893)Indication: Diarrhea On: 98-Dto-215932:48 Request ANJELICA CULTURE-STOOL (86254)Indication: Diarrhea On: :55 Request C.Difficile, Stool (71991)Indication: Diarrhea On: :54 Request LEUKOCYTE COUNT, FECAL (82830)Indication: Diarrhea On: :27 Request OVA & PARASITE DIR SMEAR (20474)Indication: Diarrhea On: :27 Request C.Difficile, Stool (09391)Indication: Diarrhea On: :27 Request ANJELICA CULTURE-STOOL (39036)Indication: Diarrhea On: :27 Request TSH (48673)Indication: Unspecified bacterial pneumonia On: 8-Uee-964795:48 Request CBC, Platelets & Auto Diff (92778)Indication: Unspecified bacterial pneumonia On: :48 Request Magnesium (51377)Indication: Unspecified bacterial pneumonia On: 4-Umo-473953:48 Request Phosphorus (70803)Indication: Unspecified bacterial pneumonia On: :48 Request Metabolic Panel, Basic (37305)Indication: Unspecified bacterial pneumonia On: 1-Zzh-390528:48 Request Planned Encounters Medical; 4 Month FU - On: 10-Oct-2018 13:15 [facility] Sandra Bermudez DO, DO, Kathleen Planned Procedures Flu Vaccine (Quadrivalent) On: 06-Jun-2018 Intent 50060Pp: Sandra Bermudez DO Comments: Lot #[id number]-L dltd, IMDose prefilled syringegiven by:MARICARMEN Santana reviewed and ABN signed Sandra Bermudez DO Flu Vaccine (Quadrivalent) On: 02-Aug-2017 Intent 56527Aw: Sandra Bermudez DO Comments: Lot:[id number]:12/29Amt:0.5mlRoute:IMSite: Rt DltdGiven By: ALFREDITO James signed Sandra Bermudez DO Flu Vaccine (Quadrivalent) On: 14-May-2016 Intent 19727Yb: Roe Baxter MD Comments: Lot #[id number]-L dltd, IMDose prefilled syringegiven by:ALFREDITO Goldberg and ABN signed ADMINISTRATION OF INFLUENZA On: 02-Aug-2015 Intent VIRUS VACCINE (G0008)By: Linda Houston MD Flu Vaccine (Quadrivalent) On: 02-Aug-2015 Intent 15773Wh: Linda Houston MD Comments: Lot #:[id number] date:Amount given:0.5mlRoute: IMSite given:L DltdGiven by: Jessica BASSETT and ABN signed Quad Flu ELECTROCARDIOGRAM, COMPLETE On: 21-Mar-2015 Intent (ECG) (11837)By: Linda Houston MD CT - Brain/Head (IV Contrast On: 29-Nov-2014 Intent Needed)By: Linda Houston MD ADMINISTRATION OF INFLUENZA On: 06-Aug-2014 Intent VIRUS VACCINE (G0008)By: TIMBO Villegas Flu Vaccine (Quadrivalent) On: 06-Aug-2014 Intent 11915Ka: TIMBO Villegas Comments: Lot #:[id number] date:mount given:0.5mlRoute: IM Site given:Given by: to be given per patient home health nurse CATHETERIZE FOR URINE SPEC On: 09-Mar-2014 Intent (P9612)By: Linda Houston MD Comments: pls use pediatric cath- and fax results to [phone] SPECIMEN HNDLNG/TRNSPRT, OFFC > On: 09-Mar-2014 Intent LAB (57188)By: Linda Houston MD IMMUNIZ ADMNIN, 1 VAC, On: 28-Jul-2013 Intent SNGL/COMBO (23380)By: Archie BOLDEN, Comments: Lot #[id number] to nurse for admin Jessica Stack FLU VAC, SPLIT, >3 YEARS, On: 28-Jul-2013 Intent INTRAMUSC (74983)By: Jessica Almanza LPN SPECIMEN HNDLNG/TRNSPRT, OFFC > On: 18-May-2013 Intent LAB (25516)By: Linda Houston MD Eprescribed prescriptions On: 18-May-2013 Intent (G8553)By: Jessica Almanza LPN FLU VAC, SPLIT, >3 YEARS, On: 23-Jun-2011 Intent INTRAMUSC (52004)By: Archie BOLDEN, Comments: Lot #[id number]-Sreekanth arm, IMDose prefilledgiven by:Jessica Stack IMMUNIZ ADMNIN, 1 VAC, On: 23-Jun-2011 Intent SNGL/COMBO (90266)By: Jessica Almanza LPN Instructions Name Dates Details [...] for the procedure will be Dr [facility]. The chief complaint is teeth [...]
--- OUTSIDE RECORDS SUMMARY | 2018-10-08 11:31 | XMS RPT_ITS | Continuity of Care Document ---
:1990 Author Organization [facility] Address [address] [place] [address] Phone Care Team Providers Name Role Phone [...] Active Convulsions (R56.9, 780.39) Comments: neurologist: Dr Kbeede, 1 year agodischarged her bc age and [...] Propionate 50 MCG/ACT Nasal Suspension 2 (two) Hannah(s) Hannah(s) each nostril qd for 90 days Quantity: [...] Houston MD Start : 20-Jan-2016 Active Nyamyc 248062 UNIT/GM External Powder uad Powder to affected area(s) bid and prn for 0 days Quantity: 15 {Bottle} Refills: 6 Ordered:19-Nov-2017 Karin Bermudez DO, DO, Kathleen Start : 19-Nov-2017 End : 17-Nov-2013 Active Nystatin 428361 UNIT/GM External Cream uad Cream to affected area(s) bid prn for 7 days Quantity: 1 {Bottle} Refills: 3 Ordered:03-Jun-2018 Karin Bermudez DO, DO, Kathleen Start : 03-Jun-2018 Active Nystatin 288629 UNIT/ML Mouth/Throat Suspension 5 ml ml 5 times day for 10 days Quantity: 250 {Milliliter} Refills: 9 Ordered:03-Apr-2016 Jessica Almanza LPN Start : 03-Apr-2016 Active Nystatin Powder 1 Powder Powder tid for 10 days Quantity: 1 {Bottle} Refills: 3 Ordered:28-Jun-2017 Karin Bermudez DO, DO, Kathleen Start : 28-Jun-2017 Active Pen [place] 31G X 5 MM Miscellaneous 1 (one) [...] Quantity: 1 {Bottle(s)} Refills: 0 Ordered:03-Mar-2013 Linda Houtson MD Start : 20-Feb-2013 End : 27-Feb-2013 [...] days Quantity: 30 {Tablet} Refills: 0 Ordered:11-Jul-2013 iLnda Houston MD Start : 11-Jul-2013 End : [...] for 0 days Refills: 0 Ordered:23-Jun-2011 Long TEXTILE CHEMIST, Jessica L End : 23-Jun-2011 Inactive LevoFLOXacin [...] for 0 days Refills: 0 Ordered:23-Jun-2011 Long TEXTILE CHEMIST, Jessica L End : 23-Jun-2011 Inactive MUCINEX FOR KIDS, 100MG/5ML (Oral Liquid) Liquid 15 cc tid 14 days for 0 days Refills: 0 Ordered:23-Jun-2011 Long TEXTILE CHEMIST, Jessica L Start : 13-Jun-2009 End : [...] Quantity: 30 {Packet} Refills: 2 Ordered:15-May-2016 Long TEXTILE CHEMIST, Jessica L Start : 14-May-2016 End : [...] nostril qd for 0 days Quantity: 1 {Hannah} Refills: 3 Ordered:09-Apr-2015 Linda Houston MD Start : 09-Apr-2015 End : 20-Jan-2016 Discontinued Comments:This order discontinued per [employer]. MUCOMYST, 20% (Inhalation Solution) 1 bid/prn for 0 days Refills: 0 Ordered:23-Jun-2011 Long TEXTILE CHEMIST, Jessica L End : 23-Jun-2011 Discontinued Comments:This order discontinued per [employer]. VYTONE, 1-1% (External Cream) Cream bid for 0 days Quantity: 1 {Cream} Refills: 3 Ordered:13-Jun-2009 Long TEXTILE CHEMIST, Jessica L Start : 13-Jun-2009 End : [...] Result: Comments: See Note; NOTES: [facility] [place] [address] [place] [address] OFFICE VISIT Date of Service: 05/25/18 MR#: [id number] Acct: [id number] Name: MANDY MONTERO Rep #: [id number] : 1990 Provider: Lawrence Weiner MD Age/Sex: 28/F [place] [facility] Status: Signed Assessment AND Plan Problems 1. [...] Department Summary Result: Comments: See Note; NOTES: [facility] Medical Records Department [address] [place] [address] Emergency Department Summary 01/24/18 1645 MR#: [id number] Acct: [id number] Name: MIGUELMANDY A Rep #: [id number] : 1990 27 From: Stephan Hughes MD [...] Discharged to home Impression: 1. Cellulitis left [facility] 2. Dysuria of unknown etiology 3. History of MRDD 4. History of Propulsid 5. History of chronic respiratory failure on ventilator This note was generated with [employer] dictation software. It m ay contain incorrect [...] Instructions: Mandy prescription was electronically transmitted to [place] [facility], your [facility] What to do if you have Problems For any increased pain, shortness of breath, bleeding, nausea or vomiting, chest pain, or any unexpected problems, contact your Primary Care Provider. Call [facility] ([phone]) or report to the closest Emergency Room. Call 911 if necessary. 01/24/18 1749 <Electronically signed by Stephan Hughes MD> Date Stephan Hughes MD Cosigner Signature (If Indicated): Date CC: Sandra Bermudez DO 10-Dec-2017 Pulmonary Visit Report Result: Comments: See Note; NOTES: [facility] of [address] [place] [address] OFFICE VISIT Date of Service: 12/09/17 MR#: [id number] Acct: [id number] Name: MANDY MONTERO Rep #: [id number] : 1990 Provider: Lawrence Weiner MD Age/Sex: 27/F Location: [facility] Status: Signed Assessment AND Plan 1. Chronic [...] Comments: See Note; NOTES: [facility] [place] [address] [place] [address] OFFICE VISIT Date of Service: 09/02/17 MR#: [id number] Acct: [id number] Name: MANDY MONTERO Rep #: [id number] : 1990 Provider: Lawrence Weiner MD Age/Sex: 27/F Location: [facility] Status: Signed Assessment AND Plan 1. Spastic [...] mg (10 mL) PO QDAY PRN allergy nhwqitjyG39 .2 Ok to give through PEG Follow [...] a cot with her mother and healthcare insurance claims assistant. Family reports the patient has had [...] Department Summary Result: Comments: See Note; NOTES: [facility] Medical Records Department [address] [place] [address] Emergency Department Summary MR#: [id number] Acct: [id number] Name: MANDY MONTERO Rep #: [id number] : 1990 26 From: Flip Jessica MD PCP: Sandar Bermudez DO Status: [facility] ER DATE OF SERVICE: 03/06/2017 [...] . Flip Jessica MD T: NTS JOB: [id number] 03/10/17805 <Electronically signed by Flip Jessica MD> Date Flip Jessica MD Cosigner Signat ure (If Indicated): Date CC: Sandra Bermudez DO Date Dictated: 03/06/171722 Date Transcribed: 03/06/171722 Wire Spring Relay Adjuster: Signed 06-Mar-2017 Discharge Instruction Result: Comments: See Note; NOTES: [facility] Medical Records Department [address] [facility] [place] [address] Discharge Instruction 03/06/171719 MR#: [id number] Acct: [id number] Name: ROMELIA MONTERO Rep #: [id number] : 1990 26 From: Flip Jessica MD [...] your Primary Care Provider. Call [facility] ([phone]) or report to the closest Emergency Room. Call 911 if necessary. 03/06/17 1720 <Electronically signed by Flip Jessica MD> Date Flip Jessica MD Cosigner Signature (If Indicated): Date CC: Sandra Bermudez DO 06-Mar-2017 Chest 1 View Result: Comments: See Note; NOTES: [facility] Imaging Services [address] [place] [address] Verdana 4d Chest 1 View MR#: [id number] Acct: [id number] Name: MANDY MONTERO Rep #: [id number] : 1990 F 26 From: Merritt Bolton MD PCP: Sandra Bermudez DO Status: REG ER Study: Chest 1 View Date of Exam: 03/06/17 Exam# [id number] Ordering Dr: Flip Jessica MD STUDY: X-RAY [...] CC: Flip Jessica MD; Sandra Bermudez DO Wire Spring Relay Adjuster: Signed 06-Mar-2017 Thoracic Spine 3 Views Result: Comments: See Note; NOTES: [facility] Imaging Services [address] [place] [address] Verdana 4d Thoracic Spine 3 Views MR#: [id number] Acct: [id number] Name: MANDY MONTERO Rep # : [id number] : 1990 F 26 From: Merritt Bolton MD PCP: Sandra Bermudez DO Status: [facility] Study: Thoracic Spine 3 Views Date of Exam: 03/06/17 Exam# [id number] Ordering Dr: Flip Jessica MD [facility] DY: X-RAY - THORACIC SPINE REASON [...] CC: Flip Jessica MD; Sandra Bermudez DO Wire Spring Relay Adjuster: Signed 10-Sep-2016 Chest 1 View (Portable) Result: Comments: See Note; NOTES: [facility] Imaging Services [address] [place] [address] Verda 4d Chest 1 View (Portable) MR#: [id number] Acct: [id number] Name: MANDY MONTERO Rickey Rep #: [id number] : 1990 F 26 From: Mandy Chávez MD PCP: Sandra Bermudez DO Status: PRE ER Study: Chest 1 View (Portable) Date of Exam: 09/10/16 Exam# [id number] Ordering Dr: Vinnie Sher MD STUDY: X-RAY [...] MD at 23:49 EST , Service support [phone], CC: Linden Sher MD; Sandra Bermudez DO Wire Spring Relay Adjuster: Signed 12-Mar-2016 Emergency Department Summary Result: Comments: See Note; NOTES: [facility] Medical Records Department [address] [place] [address] Emergency Department Summary MR#: [id number] Acct: [id number] Name: MIGUELMANDY A Rep #: [id number] : 1990 25 From: Joseph Mcgee MD [...] Baxter Date Dictated: 02/29/16112 Date Transcribed: 02/29/16112 Wire Spring Relay Adjuster: Signed 28-Feb-2016 Discharge Instruction Result: Comments: See Note; NOTES: [facility] Medical Records Department [address] [place] [address] Discharge Instruction 02/28/161925 MR#: [id number] Acct: [id number] Name: MANDY MONTERO Rep #: [id number] : 1990 25 From: Joseph Mcgee MD [...] problems, contact your doctor. Call [facility] ([phone]) or report to the closest Emergency Room. Call 911 if necessary. [phone] <Electronically signed by Joseph Mcgee MD> Date Joseph Mcgee MD Cosigner Signature (If Indicated): Date ___ CC: Roe Baxter 28-Feb-2016 Abdomen/Pelvis without Cont Result: Comments: See Note; NOTES: [facility] Imaging Services [address] [place] [address] Verdana 4d Abdomen/Pelvis without Cont MR#: [id number] Acct: [id number] Name: MANDY MONTERO Rep #: [id number] : 1990 F 25 From: Seymour Villagomez MD PCP: Roe Baxter Status: REG ER Study: Abdomen/Pelvis without Cont Date of Exam: 02/28/16 Exam# [id number] Ordering Dr: Joseph Patton MD STUDY: CT [...] MD at 18:47 EDT , Service support [phone], CC: Roe Baxter; Joseph Mcgee MD Wire Spring Relay Adjuster: Signed 25-Feb-2016 Emergency Department Summary Result: Comments: See Note; NOTES: [facility] Medical Records Department [address] [place] [address] Emergency Department Summary MR#: [id number] Acct: [id number] Name: MANDY MONTERO Rep #: [id number] : 1990 25 From: Tomás Willis MD [...] Tejas Beltre C: Roe Baxter MD T: [facility] JOB: [id number] 02/25/167 <Electronically signed by Tomás Willis MD> Date Tomás Willis MD Cosigner Signature (If Indicated): Date CC: Roe Baxter Date Dictated: 02/23/16 152 Date Transcribed: 02/23/161520 Wire Spring Relay Adjuster: Signed 23-Feb-2016 Discharge Instruction Result: Comments: See Note; NOTES: [facility] Medical Records Department [address] [place] [address] Discharge Instruction 02/23/16 1514 MR#: [id number] Acct: [id number] Name: MANDY MONTERO Rickey Rep #: [id number] : 1990 25 From: Tomás Willis MD [...] problems, contact your doctor. Call [facility] ([phone]) or report to the closest Emergency Room. Call 911 if necessary. [phone] <Electronically signed by Tomás Willis MD> Date Tomás Willis MD Cosigner Signature (If Indicated): Date CC: Roe Baxter 28-Jan-2016 Chest 1 View (Portable) Result: Comments: See Note; NOTES: [facility] Imaging Services [address] [place] [address] Verdana 4d Chest 1 View (Portable) MR#: [id number] Acct: [id number] Name: JESSE MANDY Winters Rickey Rep #: [id number] : 1990 F 25 From: Abdirahman Awad MD PCP: Linda Houston MD Status: PRE ER Study: Chest 1 View (Portable) Date of Exam: 01/28/16 Exam# [id number] Ordering Dr: Edita Willis MD STUDY: X-RAY [...] MD at 22:53 EDT , Service support [phone], RAD/Chest 1 View (Portable) IMPRESSION: Retrocar diac density in left lower lobe possibly representing atelectasis or infiltrate. Recommend lateral view for further assessment Electronically Signed: Abdirahman Awad MD at 22:53 EDT , Service support [phone], CC: Linda Houston MD; Tomás Willis MD Wire Spring Relay Adjuster: Signed Family History Unknown Family Member Name [...] Active Vital Signs Date Test Result Details 24-Xcy-601159:15 Pulse 104 /min Comments: Pattern: Regular O2 SAT 99 % Comments: Room air BP Systolic 118 mm[Hg] Comments: Patient Position: Sitting; Cuff Location: Left Arm; Cuff Size: Standard BP Diastolic 78 mm[Hg] Comments: Patient Position: Sitting; Cuff Location: Left Arm; Cuff Size: Standard Weight 100 lb Height 55.5 in Body Mass Index Calculated 22.83 kg/m2 Body Surface Area Calculated 1.31 m2 80-Qil-066426:08 Pulse 86 /min Comments: Pattern: Regular O2 [...] lb :43 Comments: weight reported per [facility] [place] Temperature 97 f Comments: Method: Temporal Pulse [...] Arm; Cuff Size: Standard Weight 87 lb 7-Wru-757546:56 Comments: unable to obtain height weight reported [...] 0.00 cm Results Date Description Value Details 92-Lcm-702022:37 TSH (32256) Comments: PATIENT NOT FASTINGPERFORMED BY: HARRIET [facility] Fygtnv8776 [facility] [id number] BY: NABIL [facility] Pdnbbybcgv3826 [facility] [id number] TSH 1.030 {uIU/mL} (Normal) Range: 0.450-4.500 65-Zyn-056266:37 T4, FREE (THYROXINE) Comments: PATIENT NOT FASTINGPERFORMED BY: [facility] Fjlwbe5079 R[address]con RoadDublin [place] [id number] BY: [address] [id number] ([address]) T4,Free(Direct) 0.84 ng/dL (Normal) Range: 0.82-1.77 40-Zvy-249272:37 T3, FREE (TRIDOTHYRONINE) Comments: PATIENT NOT FASTINGPERFORMED BY: [facility] Ovsuwe0757 [address] RoadDublin [place] [id number] BY: [address] [id number] ([address]01) Triiodothyronine (T3), Free 2.6 pg/mL (Normal) Range: 2.0-4.4 :37 CALCIFIDIOL (34333) VIT D Comments: PATIENT NOT FASTINGPERFORMED BY: [facility] Rqmkiw4587 [address] [facility] [id number] BY: [address] [id number] 25 Vitamin D, 25-Hydroxy 42.6 ng/mL (Normal) Range: 30.0-100.0 Comments: Vitamin D deficiency has been defined by the [place] of[place]icine and an Endocrine Society practice guideline as alevel of serum 25-OH vitamin D less than 20 ng/mL (1,2).The Endocrine Society went on to further define vitamin Dinsufficiency as a level between 21 and 29 ng/mL (2).1. IOM ([place] of Medicine). 2010. Dietary reference intakes for calcium and D. [place]: The National Academies Press.2. Gabbi MF, Singh [place], Twin-Bhanu JOSEPH, et al. Evaluation, treatment, and prevention of vitamin D deficiency: an Endocrine Society clinical practice guideline. JCEM. 2010; 96(7):1911-30. 91-Mpm-897775:37 TRILEPTAL-OXCARBAZEPINE [id number] Comments: send results to dr sandy storm; PATIENT NOT FASTINGPERFORMED BY: [facility] Bxnwea1604 [address] [facility] [id number] BY: LabCoMichael [place] [address] [facility] [id number] (13968) Oxcarbazepine 49 ug/mL (Abnormal) Range: 10-35 Comments: Detection Limit = 1 43-Dkf-859665:37 CBC with auto diff Comments: send results to dr delgado too; PATIENT NOT FASTINGPERFORMED BY: LabCoThe Rehabilitation Hospital of Tinton FallsCxzamf2497 Rincon RoadDubllarry [place] [id number] BY: LabCoMichael [place] [address] [facility] [id number] (45425) Immature Grans (Abs) 0.0 {x10E3/uL} (Normal) Range: [...] 3.77-5.28 WBC 6.3 {x10E3/uL} (Normal) Range: 3.4-10.8 24-Pkx-680068:37 METABOLIC PANEL, Comments: send results to dr delgado too; PATIENT NOT FASTINGPERFORMED BY: Cub[employer] Pure[employer] [facility] [id number] BY: Central Desktop[address] [id number] COMPREHENSIVE (30948) ALT (SGPT) 38 [iU]/L (Abnormal) Range: 0-32 [...] 6-20 Glucose 237 mg/dL (Abnormal) Range: 65-99 68-Qaq-620373:37 HGB A1C (64575) Comments: PATIENT NOT FASTINGPERFORMED BY: On The BillThe Rehabilitation Hospital of Tinton FallsXodbmh1693 [facility] [id number] BY: Lab[address] [id number] Hemoglobin A1c 6.3 % (Abnormal) Range: 4.8-5.6 Comments: . Prediabetes: 5.7 - 6.4 Diabetes: >6.4 Glycemic control for adults with diabetes: <7.0 52-Stx-036905:00 Urinalysis, Complete Comments: How was Urine Obtained? [facility] [address] [place], [place], [id number] MUCUS, URINE 0 SEEN {/hpf} (Normal) BACTERIA [...] (Abnormal) CLARITY Clear (Normal) COLOR Yellow (Normal) 84-Fqz-861508:50 Basic Metabolic Profile (BMP) Comments: [facility] [address] [place], [place], [phone] GAP 8 (Normal) Range: 5-15 CO2 28.0 [...] A.D.A. criteria.Please note revised GLUCOSE reference range fgfnwryfj73/02/2018. 81-Xcj-016311:50 CBC W/Diff, Automated Comments: [facility] [address] [place], [address] Absolute Lymph 1.52 {X10_3/ul} (Normal) Range: 0.83-4.51 [...] 4.2-5.4 WBC 6.0 K/mm3 (Normal) Range: 4.4-11.0 79-Jcn-50494:00 Lactic Acid Comments: Yes/No query for Sepsis Lactate Rule [facility] [address] [place], [address] LACTIC ACID 2.0 mmol/L (Normal) Range: 0.4-2.0 Comments: Critical Result(s) Called at: 18:33:30 01/24/2018 by:Yohana [facility]rasum[facility] 84-Nfh-262891:39 TSH (88961) Comments: PATIENT NOT FASTINGPERFORMED BY: [facility] Fcclbt7221 [facility] [id number] BY: LabCo[address] [id number] TSH 1.150 {uIU/mL} (Normal) Range: 0.450-4.500 63-Dku-467751:39 METABOLIC PANEL, Comments: PATIENT NOT FASTINGPERFORMED BY: Picodeon [facility] Vsijfw3528 [facility] [id number] BY: [facility] [address] [id number] COMPREHENSIVE (11832) ALT (SGPT) 18 [iU]/L (Normal) Range: 0-32 [...] Glucose, Serum 138 mg/dL (Abnormal) Range: 65-99 32-Yvc-000578:39 CBC W/AUTO DIFF WBC Comments: PATIENT NOT FASTINGPERFORMED BY: CB [facility] Esqzur0449 [facility] [id number] BY: BN [facility] Yamopqccyo9485 [facility] [id number] (28227) Immature Grans (Abs) 0.0 {x10E3/uL} (Normal) Range: [...] 6.6 {x10E3/uL} (Normal) Range: 3.4-10.8 :39 TRILEPTAL-OXCARBAZEPINE [id number] Comments: PATIENT NOT FASTINGPERFORMED BY: Picodeon LabCoGetit InfoServicesWsozyu2126 [facility] [id number] BY: LabCo[address] [id number] (74645) Oxcarbazepine 28 ug/mL (Normal) Range: 10-35 Comments: Detection Limit = 1 :39 CALCIFIDIOL (90438) VIT D Comments: PATIENT NOT FASTINGPERFORMED BY: Picodeon LabToVieForrp Jyvier6063 [facility] [id number] BY: LabToVieFor[address] [id number] 25 Vitamin D, 25-Hydroxy 56.3 ng/mL (Normal) Range: 30.0-100.0 Comments: Vitamin D deficiency has been defined by the [place] of[facility] Hospitalcine and an Endocrine Society practice guideline as alevel of serum 25-OH vitamin D less than 20 ng/mL (1,2).The Endocrine Society went on to further define vitamin Dinsufficiency as a level between 21 and 29 ng/mL (2).1. IOM ([place] of Medicine). 2010. Dietary reference intakes for calcium and D. [place]: The National Academies Press.2. Gabbi MF, Singh MCKEON, Pollo JOSEPH, et al. Evaluation, treatment, and prevention of vitamin D deficiency: an Endocrine Society clinical practice guideline. JCEM. 2010; 96(7):1911-30. :39 HGB A1C (46048) Comments: PATIENT NOT FASTINGPERFORMED BY: [facility] Dzbszv6765 [facility] [id number] BY: LabCoMichael [place] [address] [facility] [id number] Hemoglobin A1c 5.7 % (Abnormal) Range: 4.8-5.6 Comments: . Pre-diabetes: 5.7 - 6.4 Diabetes: >6.4 Glycemic control for adults with diabetes: <7.0 20-Apr-20174:11 THROAT CULTURE (65747) Comments: PATIENT NOT FASTINGPERFORMED BY: [facility] Fcaniw5069 [facility] [id number] Information: SRC: Result 1 RRF (Normal) Comments: Routine respiratory jasper Upper Respiratory Culture Final report (Normal) 74-Jkt-837118:35 CBC W/Diff, Automated Comments: [facility] [address] [place], [address] Absolute Lymph 1.23 {X10_3/ul} (Normal) Range: 0.83-4.51 [...] 4.2-5.4 WBC 4.9 K/mm3 (Normal) Range: 4.4-11.0 33-Mop-936969:35 CRP Comments: [facility] [address] [place], [place], [id number] C-REACTIVE PROT < 2.90 mg/L (Normal) Range: 0.0-3.0 Comments: C-Reactive Protein (CRP) provides useful information for thediagnosis, therapy and monitoring of inflammatory processesand associated diseases. For the evaluation of Relative Riskfor Cardiovascular Dise ase, a High Sensitivity CRP (HSCRP)should be ordered. :15 Culture, Nose Comments: [facility] Psyrwvwiwk5921 [facility] [address] [place], [place], [id number] CUN See Note (Normal) Comments: Comments: THICK [...] $ <=20 S(NF) indicates non-formulary drug at [facility]. Ap proval by Infectious Disease Specialist required before non-formulary drugs may be ordered and/or dispensed. Pseudomonas aeroginosa: REACTION Cefepime $ <=1 S Ceftazidime *NF 2 S Ciprofloxacin $ 2 I Gentamicin $ <=1 S Imipenem *NF 1 S Levofloxacin $ 4 I Piperacillin/Tazobactam $$ 8 S Tobramycin $ <=1 S(NF) rocky cates non-formulary drug at [facility]. Approval by Infectious Disease Specialist required before non-formulary drugs may be ordered and/or dispensed. 16-Gwu-644440:34 LIPID PANEL (45048) Comments: PATIENT NOT FASTINGPERFORMED BY: [employer] Isjqln4954 [facility] [id number] BY: Central Desktop[address] [id number] LDL/HDL Ratio 1.5 {ratio_units} (Normal) Range: 0.0-3.2 Comments: LDL/HDL Ratio Men Women 1/2 Avg.Risk 1.0 1.5 Av g.Risk 3.6 3.2 2X Avg.Risk 6.2 5.0 3X Avg.Risk 8.0 6.1 LDL Cholesterol Calc 76 mg/dL (Normal) Range: 0-99 VLDL Cholesterol Dirk 17 mg/dL (Normal) Range: 5-40 HDL Cholesterol 50 mg/dL (Normal) Triglycerides 84 mg/dL (Normal) Range: 0-149 Cholesterol, Total 143 mg/dL (Normal) Range: 100-199 33-Dmu-717126:34 METABOLIC PANEL, Comments: PATIENT NOT FASTINGPERFORMED BY: Metagolin6370 [facility] [id number] BY: On The Bill[address] [id number] COMPREHENSIVE (85119) ALT (SGPT) 20 [iU]/L (Normal) Range: 0-32 [...] Glucose, Serum 137 mg/dL (Abnormal) Range: 65-99 57-Jlk-022512:34 CBC with auto diff Comments: PATIENT NOT FASTINGPERFORMED BY: CB [facility] Xsupig8707 [facility] [id number] BY: BN [facility] Hbwbchqsby3088 [facility] [id number] ([address]) Immature Grans (Abs) 0.0 {x10E3/uL} (Normal) Range: [...] 3.77-5.28 WBC 4.5 {x10E3/uL} (Normal) Range: 3.4-10.8 17-Gdq-683811:34 TRILEPTAL-OXCARBAZEPINE 616160 Comments: PATIENT NOT FASTINGPERFORMED BY: BiondVax70 [facility] [id number] BY: On The Bill[address] [id number] (02694) Oxcarbazepine 23 ug/mL (Normal) Range: 10-35 Comments: Detection Limit = 1 14-Mox-346954:34 HGB A1C (44513) Comments: PATIENT NOT FASTINGPERFORMED BY: BiondVax70 [facility] [id number] BY: On The Bill[address] [id number] Hemoglobin A1c 6.1 % (Abnormal) Range: 4.8-5.6 Comments: . Pre-diabetes: 5.7 - 6.4 Diabetes: >6.4 Glycemic control for adults with diabetes: <7.0 99-Puq-788576:34 CALCIFIDIOL (04143) VIT D Comments: PATIENT NOT FASTINGPERFORMED BY: BiondVax70 [facility] [id number] BY: On The Bill[address] [id number] 25 Vitamin D, 25-Hydroxy 49.1 ng/mL (Normal) Range: 30.0-100.0 Comments: Vitamin D deficiency has been defined by the [place] ofMedicine and an Endocrine Society practice guideline as alevel of serum 25-OH vitamin D less than 20 ng/mL (1,2).The Endocrine Society went on to further define vitamin Dinsufficiency as a level between 21 and 29 ng/mL (2).1. IOM ([place] of Medicine). 2010. Dietary reference intakes for calcium and D. [place]: The National Academies Press.2. Gabbi MF, Singh MCKEON, Pollo JOSEPH, et al. Evaluation, treatment, and prevention of vitamin D deficiency: an Endocrine Society clinical practice guideline. JCEM. 2010; 96(7):1911-30. 99-Qnr-893191:15 Culture, Throat Comments: [facility] [address] [place], [address] CUT See Note (Normal) Comments: Culture, ThroatMixed normal respiratory jasper. No Haemophilus, Streptococcus pneumoniae, beta-hemolytic Streptococcus or Staphylococcus aureus isolated. Copy of report sent to Infection Control Pr inter [id number] 01/04/17 6552 NSTANSLOS. ORGANISM 1: Serratia marcescensAmount Growth 1+ Serratia marcescens: REACTION Amoxacillin/Clavulanic Acid $ >=32 R Cefazolin $ >=64 R Cefepime $ <=1 S Ceftriaxone $ <=1 S Ciprofloxacin $ <=0.25 S Ertapenim $$$ <=0.5 S Gentamicin $ <=1 S Levofloxacin $ 0.5 S Tobramycin $ <=1 S Trimethoprim/Sulfametho $ <=20 S(NF) indicates non-formulary drug at [facility]. Approval by Infec tious Disease Specialist required before non-formulary drugs may be ordered and/or dispensed. 03-Uyu-73269:30 Culture, Wound Comments: [facility] [address] [place], [address] CUW See Note (Normal) Comments: Comments: COLLECTED FROM TRACHEA STOMA/DX THICK SPUTUMGram StainGram Stain No organisms seen Wound CultureNo Haemophilus, Streptococcus pneumoniae, beta-hemolytic Streptococcus or Staphylococcus aureu s isolated. Copy of report sent to Infection Control Printer [id number] 12/09/16 1437 DCANNON. ORGANISM 1: Serratia marcescensAmount Growth 1+ [...] $ <=20 S(NF) indicates non-formulary drug at [facility]. Approval by Infectious Disease Specialist required before non-formulary drugs may be ordered and/or dispensed. Pseudomonas aeroginosa: REACTION Cefepime $ <=1 S Ceftazidime *NF <=1 S Ciprofloxacin $ 0.5 S Gentamicin $ <=1 S Imipenem *NF 1 S Levofloxacin $ 1 S Piperacillin/Tazobactam $$ 8 S Tobramycin $ <=1 S(NF) indicates non-formulary drug at [facility]. Approval b y Infectious Disease Specialist required before non-formulary drugs may be ordered and/or dispensed. :37 Base Excess ISTAT Comments: [place] [address] [place] [address] BE ISTAT 6 mmol/L (Abnormal) 84-Ggj-430969:37 Bicarbonate ISTAT Comments: [place] [address] [place], [place] [address] HCO3 ISTAT 30 mmol/L (Abnormal) Range: 22-26 Comments: Site = R BrachialAllens Test = NAMode = A-CDevice = VentFIO2 = 40Results To = ED MDTime Given = 2350MV = 4.5VT = 250RR = 21PEEP = 7 :37 Blood Gas Specimen Type Comments: [place] [address] [place], [place] [address] BLD GAS TYPE ART (Normal) 09-Lwu-304329:37 pCO2 - ISTAT 40.0 {mmHg} (Normal) Comments: [place] [address] [address] Sin[address] [address] Range: 35-45 40-Lue-478232:37 pH - I-STAT 7.48 (Abnormal) Comments: [place] [address] [address] [place]ha [address] Range: 7.35-7.45 27-Fdy-799874:37 PO2 I-STAT 65 {mmHG} (Abnormal) Comments: [place] [address] [address] Sinha [address] Range: 75-100 49-Sfe-552333:37 SO2 ISTAT 94 % (Abnormal) Comments: [place] [address] [address]ha [address] Range: 95-99 :37 Total Carbon Dioxide ISTAT Comments: [place] [address] [address] [address] TOTAL CO2 ISTAT 31 mmol/L (Normal) 98-Qze-784703:55 Basic Metabolic Profile (BMP) Comments: [place] [address] [address]ATH[address] Sinha, [address] GAP 5 (Normal) Range: [...] Range: 70-110 :55 CBC W/Diff, Automated Comments: [facility] [address] [place], [address] Absolute Lymph 1.51 {X10_3/ul} (Normal) Range: 0.83-4.51 [...] :52 Anaerobic and Aerobic Comments: [facility]: [facility] Pyxupv7401 [facility] [id number] Information: buttock SRC:WO Culture Antimicrobial MIHEAD (Normal) [...] 72 hours. Anaerobic Culture Final report (Normal) 0-Zcf-646879:39 CBC With Differential/Platelet Comments: PERFORMED BY: [facility] Duyitk3254 [facility] [id number] BY: [facility] [address] [id number] Immature Grans (Abs) 0.0 {x10E3/uL} (Normal) Range: [...] 3.77-5.28 WBC 5.1 {x10E3/uL} (Normal) Range: 3.4-10.8 7-Eyd-688599:39 Comp. Metabolic Panel Comments: PERFORMED BY: CB [facility] [address] [id number] BY: BN [facility] [address] [id number] (14) ALT (SGPT) 27 [iU]/L (Normal) Range: [...] 65-99 :39 Oxcarbazepine (Trileptal),S Comments: PERFORMED BY: [employer] [facility] [id number] BY: [facility] [employer] [address] [id number] Oxcarbazepine 24 ug/mL (Normal) Range: 10-35 Comments: Detection Limit = 1 :39 TSH 1.640 {uIU/mL} Comments: PERFORMED BY: [employer] [facility] [id number] BY: [address] [employer] [address] [id number] (Normal) Range: 0.450-4.500 :39 Vitamin B12 and Folate Comments: PERFORMED BY: [employer] [facility] [id number] BY: [address] [id number] Folate (Folic Acid), 8.0 ng/mL (Normal) Comments: A serum folate concentration of less than 3.1 ng/mL isconsidered to represent clinical deficiency. Serum Vitamin B12 1048 pg/mL Range: 211-946 (Abnormal) : Vitamin D, 40.7 ng/mL (Normal) Comments: PERFORMED BY: CB [facility] Wdcpdn7098 [facility] [id number] BY: BN [facility] Fbdmvnxfkp6358 [facility] [id number] 39 25-Hydroxy Range: 30.0-100.0 Comments: Vitamin D deficiency has been defined by the [place] ofMedicine and an Endocrine Society practice guideline as alevel of serum 25-OH vitamin D less than 20 ng/mL (1,2).The Endocrine Society went on to further define vitamin Dinsufficiency as a level between 21 and 29 ng/mL (2).1. IOM ([place] of Medicine). 2010. Dietary reference intakes for calcium and D. [place]: The National Academies Press.2. Gabbi MF, Singh MCKEON, Pollo JOSEPH, et al. Evaluation, treatment, and prevention of vitamin D deficiency: an Endocrine Society clinical practice guideline. JCEM. 2010; 96(7):1911-30. 25-Yir-515030:00 Urinalysis, Complete Comments: Order Date: 02/28/16How was Urine Obtained? [facility] Lryoxbbqtd3999 [place], [place], [id number] MUCUS, URINE RARE {/hpf} (Normal) BACTERIA 0 [...] CLARITY Sl. Cloudy (Normal) COLOR Yellow (Normal) 74-Gmi-116508:00 Basic Metabolic Profile (BMP) Comments: [facility] [address] [place], [place], [phone] GAP 8 (Normal) Range: 5-15 CO2 26.0 [...] 7-18 GLU 84 mg/dL (Normal) Range: 70-110 86-Zyu-978722:00 CBC W/Diff, Automated Comments: [facility] [address] [place], [place], [id number] Absolute Lymph 1.11 {X10_3/ul} (Normal) Range: 0.83-4.51 [...] 4.2-5.4 WBC 5.5 K/mm3 (Normal) Range: 4.4-11.0 88-Rtx-381595:00 Lactic Acid Comments: [facility] [address] [place], [place], [address](915) LACTIC ACID 1.6 mmol/L (Normal) Range: 0.4-2.0 60-Cqh-916494:00 Lipase Comments: [facility] [address] [place], [place], [phone](795) LIPASE 177 U/L (Normal) Range: 73-393 69-Rph-683250:00 Liver Profile Comments: [address] [place], [place], [address] D BILI 0.08 mg/dL (Normal) Range: 0.00-0.30 [...] (Normal) Range: 6.4-8.2 :30 CDIFF (Molecular) Comments: [facility] [address] [place], [address] CDIFF See Note (Normal) Comments: Cdiff-MolecularC. Diff DNA Negative- No toxigenic C. Diff DNA Detected :30 ENTERIC PATHOGEN PANEL STOOL Comments: [address] [place], [address] EP PANEL See Note (Normal) [...] DetectedRotavirus Not Detected :30 Stool Lactoferrin/WBC Comments: [address] [place], [address] WBCST See Note (Normal) Comments: Stool Lacto/WBCFecal WBC Lactoferrin Negative: No Fecal WBC Lactoferrin present :30 Stool Occult Blood iFOB Comments: [address] [place], [address] STOB See Note (Normal) Comments: STOB iFOBOccult Blood Negative 23-Hop-552771:35 Urinalysis, Complete Comments: How was Urine Obtained? [facility] [address]dom[address] [place], [address] MUCUS, URINE 0 SEEN {/hpf} [...] (Normal) CLARITY Cloudy (Normal) COLOR Yellow (Normal) 70-Sab-379387:00 CBC W/Diff, Automated Comments: [facility] [address] [place], [place], [phone] SMEAR COMMENT SCANNED (Normal) Comments: LYMPHOPENIA NOTED [...] 4.2-5.4 WBC 6.8 K/mm3 (Normal) Range: 4.4-11.0 27-Hzo-093017:00 Comprehensive Metabolic Profil Comments: [facility] [address]aj[address] [place], [address] GAP 9 (Normal) Range: 5-15 CO2 29.0 [...] 7-18 GLU 84 mg/dL (Normal) Range: 70-110 44-Vnd-554986:00 Lactic Acid Comments: [facility] [address] [place], [phone] LACTIC ACID 2.6 mmol/L (Abnormal) Range: 0.4-2.0 52-Qqi-347618:00 Partial Thromboplast Time Comments: [facility] [address]xe[address] [place], [address] PTT 26.7 s (Normal) Range: 24.1-36.2 19-Bcz-375593:00 Prothrombin Time w/INR Comments: [facility] [address]ymmu[address] [place], [phone] INR 1.0 (Normal) PROTIME 13.1 s (Normal) Range: 11.7-14.9 20-Jan-20161:25 PREALBUMIN (79718) Comments: PERFORMED BY: [facility] Iuomkb0231 [facility] [id number] Prealbumin 27 mg/dL (Normal) Range: 9-31 Comments: [...] - 36 >70 years 9 - 32 19-Gig-495255:16 Clostridium difficile Toxin Comments: PERFORMED BY: [facility] Snrizy8365 [facility] [id number] A+B, EIA (63524) C difficile Toxins A+B, EIA Negative (Normal) 26-Cjw-325107:00 Culture, Urine Comments: [facility] [address] [place], [phone] CUUR See Note (Normal) Comments: Urine CultureCulture exhibits no growth. 31-Wdp-502222:00 Urinalysis, Complete Comments: How was Urine Obtained? [facility] [address] [place], [phone] MUCUS, URINE 0 SEEN {/hpf} (Normal) BACTERIA [...] CLARITY Sl. Cloudy (Normal) COLOR Yellow (Normal) 74-Dnz-347623:30 Culture, Urine Comments: [facility] [address] [place], [address] CUUR See Note (Normal) Comments: Urine CultureORGANISM 1: Enterococcus faecalisColony Count >100,000 Enterococcus faecalis: REACTION Ampicillin $ <=2 S Benzylpenicillin NF 2 S Ciprofloxacin $ <=0.5 S Gentamicin SYN-S S Levofloxacin $ 1 S Linezolid $$$$ 2 S Nitrofurantoin $ <=16 S Streptomycin $ SYN- S S Tetracycline NF >=16 R Vancomycin $ 1 S(NF) indicates non-formulary drug at [facility]. Approval by Infectious Disease Specialist required before non-formulary drugs may be ordered and/or dispensed. * CLSI guidelines does not recommend testing of cephalosporins. This interpretation is deduced from Beta-lactam/penicillin results. 12-Ddn-849270:30 Urinalysis, Complete Comments: How was Urine Obtained? Urine, [facility] [address]izoxadx[address] [place], [address] MUCUS, URINE 0 SEEN {/hpf} [...] CLARITY Sl. Cloudy (Normal) COLOR Yellow (Normal) 32-Jly-743456:00 ENTERIC PATHOGEN PANEL STOOL Comments: [facility] [address] [place], [address] EP PANEL See Note (Normal) [...] DetectedVIBRIO Not DetectedNorovirus Not DetectedRotavirus Not Detected 85-Zau-322021:00 Stool Lactoferrin/WBC Comments: [facility] [address]tsd[address] [place], [address] WBCST See Note (Normal) Comments: RESULTS CALLED TO DR. HOUSTON 09/10/15 @1952 BY THADDEUS.Stool Lacto/WBCFecal WBC Lactoferrin Negative: No Fecal WBC Lactoferrin present 98-Eml-988452:00 Stool Occult Blood iFOB Comments: [facility] [address]aw[address] [place], [address] STOB See Note (Normal) Comments: RESULTS CALLED TO DR. HOUSTON 09/10/15 @1952 BY THADDEUS.STOB iFOBOccult Blood Negative :29 CBC with auto diff Comments: PERFORMED BY: [facility] BillThe [facility] FallsBsjqxh1688 [facility] [id number] BY: [address] [id number] ([address]) Immature Grans (Abs) 0.0 {x10E3/uL} (Normal) Range: [...] 3.4-10.8 :29 METABOLIC PANEL, Comments: PERFORMED BY: [facility] BillThe [facility] T[facility] FallsOpkqus8444 [facility] [id number] BY: [address] [employer] [address] [id number] COMPREHENSIVE (53089) ALT (SGPT) 17 [iU]/L (Normal) Range: 0-32 [...] 73 mg/dL (Normal) Range: 65-99 20-Jan-20161:29 CALCIFIDIOL (00489) VIT D Comments: PERFORMED BY: [facility] Qhknia8022 [facility] [id number] BY: [facility] [address] [id number] 25 Vitamin D, 25-Hydroxy 39.5 ng/mL (Normal) Range: 30.0-100.0 Comments: Vitamin D deficiency has been defined by the [place] ofMedicine and an Endocrine Society practice guideline as alevel of serum 25-OH vitamin D less than 20 ng/mL (1,2).The Endocrine Society went on to further define vitamin Dinsufficiency as a level between 21 and 29 ng/mL (2).1. IOM ([place] of Medicine). 2010. Dietary reference intakes for calcium and D. [place]: The National Academies Press.2. Gabbi MF, Singh CMKEON, Pollo JOSEPH, et al. Evaluation, treatment, and prevention of vitamin D deficiency: an Endocrine Society clinical practice guideline. JCEM. 2010; 96(7):1911-30. :29 TRILEPTAL-OXCARBAZEPINE [id number] Comments: PERFORMED BY: CB [facility] Ygxcyf6890 [facility] [id number] BY: BN [facility] Yjgvshkiur0024 [facility] [id number] (92681) Oxcarbazepine 38 ug/mL (Abnormal) Range: 10-35 Comments: Detection Limit = 1 40-Vse-892947:30 CBC W/Diff, Automated Comments: [facility] [address] [place], [place], [phone] Absolute Lymph 0.90 {X10_3/ul} (Normal) Range: 0.83-4.51 [...] 4.2-5.4 WBC 5.2 K/mm3 (Normal) Range: 4.4-11.0 49-Ski-448363:30 Comprehensive Metabolic Profil Comments: [facility] [address] [place], [address] GAP 8 (Normal) Range: 5-15 CO2 26.0 [...] 200 mg/dLsuggests DIABETES MELLITUS per A.D.A. criteria. 10-Lex-816149:30 Lipid Profile Comments: [facility] P[address]fr[address]ul[address] [place] [place], [address] VLDL 38 mg/dL (Normal) Range: 5-40 LDL [...] 200-240 mg/dL Borderline >240 mg/dL High Risk 07-Hdv-481931:30 Prealbumin Comments: [facility] Pxymkv[address]he9[address] [place], [id number] PREALBUMIN 26.0 mg/dL (Normal) Range: 20.0-40.0 77-Isc-744777:30 Thyroid Stim Hormone (TSH) Comments: [facility] [address]xudu[address] [place], [address] TSH 1.02 {uIU/mL} (Normal) Range: 0.358-3.74 96-Lxy-623629:30 Trileptal-Oxcarbazepine Comments: [facility] (refer to report for specific site)refer to report for address and phone number TRILEPT [id number] 38 ug/mL (Abnormal) Range: 10-35 Comments: Detection Limit = 1Performed at: - [facility] [id number] Director: Reji Gibson MD, Phone: [phone] 07-Zsj-103313:30 Vitamin D,25 Hydroxy Comments: [facility] [address]vbfu[address] [place], [id number] Vitamin D 25-OH 38.4 ng/mL (Normal) Comments: Vitamin D 25(OH) Status Range Deficiency <20 ng/mL (50nmol/L) Insuffciency 20 - 30 ng/mL (50 - 75 nmol/L) Sufficiency 30 - 100 ng/mL (75 - 250 nmol/L) Toxicity >100 ng/mL (>250 nmol/L) 6-Moe-062636:45 CBC-Complete Blood Cnt No Diff Comments: Test performed at:[facility] Cdygskrxbh9859 [facility] [place] [address] MPV 10.5 fL (Normal) Range: [...] 4.2-5.4 WBC 6.3 K/mm3 (Normal) Range: 4.4-11.0 3-Bem-449911:45 Comprehensive Metabolic Profil Comments: Is Patient Taking Vitamins or Folic Acid Supplements? NTest performed at:[facility] Ludcwzrufb8440 [facility] [place] [address] GAP 7 (Normal) Range: 5-15 [...] <126 mg/dLsuggests IMPAIRED HOMEOSTASIS per A.D.A. criteria. 1-Cls-557833:45 CRP Comments: Is Patient Taking Vitamins or Folic Acid Supplements? NTest performed at:[facility] Mbmwtknqui4501 [facility] [place] [address] C-REACTIVE PROT < 2.90 mg/L (Normal) Range: 0.0-3.0 Comments: C-Reactive Protein (CRP) provides useful information for thediagnosis, therapy and monitoring of inflammatory processesand associated diseases. For the evaluation of Relative Riskfor Cardiovascular Dise ase, a High Sensitivity CRP (HSCRP)should be ordered. 0-Zlo-579980:45 Erythrocyte Sed Rate Comments: Test performed at:[facility] Xvpjfmsgdi8558 [facility] [place] [address] SED RATE 13 mm/h (Normal) Range: 0-20 6-Kaq-657092:45 Folates, (Folic Acid) Comments: Is Patient Taking Vitamins or Folic Acid Supplements? NTest performed at:[facility] Fvyjpyslgz3257 [facility] [place] [address] FOLATES 15.70 ng/mL (Normal) Range: 3.1-17.5 0-Pwh-376993:45 Free T3 Comments: Is Patient Taking Vitamins or Folic Acid Supplements? NTest performed at:[facility] Recypsemxi1217 [facility] [place] [address] FREE T3 2.4 pg/mL (Normal) Range: 2.18-3.98 7-Fdh-560447:45 Miscellaneous Lab Procedure Comments: Test(s) Ordered: OXCARBAZEPINE, #[id number], RED TOP SERUM/RFTest performed at:[facility] [address]vl[address] [place] [address] MISC Comments: Oxcarbazepine (Trileptal), S Oxcarbazepine 35 ug/mL Ref: Detection Limit=1 TESTING PERFOR MED AT [facility] (Normal) rp. ORIGINAL REPORT ON FILE IN LAB CONTAINS ADDITIONAL TEST SITE INFORMATION. TEST 8-Pjc-560933:45 Prealbumin Comments: Is Patient Taking Vitamins or Folic Acid Supplements? NTest performed at:[facility] [address] [place] [address] PREALBUMIN 30.9 mg/dL (Normal) Range: 20.0-40.0 :45 ,Serum,hCG Quali. Comments: Test performed at:[facility] [address] [place] [address] HCGSQUAL NEGATIVE {Negative} (Normal) Range: 0-9 Nonpreg HCG Qual triggr < 1 m[iU]/mL (Normal) :45 Prolactin Comments: Is Patient Taking Vitamins or Folic Acid Supplements? NTest performed at:[facility] Odldwgyech5825 [facility] [place] [address] PROLACTIN 9.5 ng/mL (Normal) Comments: NORMAL REFERENCE RANGES FEMALE NON- 2.2 - 30.3 ng/mL 8.1 - 347.6 ng/mL POST-MENOPAUSAL 0.7 - 3 1.5 ng/mL MALE 2.5 - 17.4 ng/mLNEW TEST METHOD AND REFERENCE RANGES FEBRUARY 01, 201218-Dec-20142-Fyg-748874:45 T4 Free Direct Comments: Is Patient Taking Vitamins or Folic Acid Supplements? NTest performed at:[facility] [address] [place] [address] T4 FREE DIRECT 0.74 ng/dL (Abnormal) Range: 0.76-1.46 7-Exb-315556:45 Thyroid Stim Hormone (TSH) Comments: Is Patient Taking Vitamins or Folic Acid Supplements? NTest performed at:[facility] [address] [place] [address] TSH 1.39 {uIU/mL} (Normal) Range: 0.358-3.74 1-Kjb-315095:45 Urinalysis, Routine (Dipstick) Comments: How was Urine Obtained? Urine, RandomTest performed at:[facility] [address]wdffzif[address] [place] [address] LEUK ESTERASE 500 /ul (Abnormal) OCCULT BLOOD-UR Negative /ul (Normal) NITRITE UR Negative (Normal) UROBILI Normal mg/dL (Normal) PROT DIPSTX Negative mg/dL (Normal) pH UR 8.0 (Normal) Range: 5.0 - 8.0 SP.GR. DIPSTX 1.010 (Normal) Range: 1.002-1.030 KETONE UR Negative mg/dL (Normal) BILIRUBIN URINE Negative mg/dL (Normal) GLUCOSE, UR Normal mg/dL (Normal) CLARITY Sl. Cloudy (Normal) COLOR Yellow (Normal) 8-Ocd-013811:45 Vitamin B12 1089 pg/mL (Abnormal) Comments: Test performed at:[facility] [address] [place] [address] Range: 211-911 2-Qdn-949861:45 Vitamin D,25 Hydroxy Comments: Test performed at:[facility] [address] [place], [place] [address] Vitamin D 25-OH 23.9 ng/mL (Normal) Comments: Vitamin D 25(OH) Status Range Deficiency <20 ng/mL (50nmol/L) Insuffciency 20 - 30 ng/mL (50 - 75 nmol/L) Sufficiency 30 - 100 ng/mL (75 - 250 nmol/L) Toxicity >100 ng/mL (>250 nmol/L) 36-Fng-653018:43 ALBUMIN SERUM (41786) Comments: PATIENT NOT FASTINGPERFORMED BY: [facility] Cfhwrm7347 [facility] [place] [id number] Albumin, Serum 4.7 g/dL (Normal) Range: 3.5-5.5 07-Lxm-056697:43 PREALBUMIN (36774) Comments: PATIENT NOT FASTINGPERFORMED BY: [facility] Fbmqzm8085 [facility] [place] [id number] Prealbumin 29 mg/dL (Normal) Range: 20-40 14-Syk-058610:21 ANJELICA CULTURE-OTHER (84268) Comments: PATIENT NOT FASTINGPERFORMED BY: [facility] Wtjwga2496 [facility] [place] [id number] Information: SRC:THRT [id number] Result 1 RRF (Normal) Comments: Routine respiratory jasper Upper Respiratory Culture Final report (Normal) 46-Pye-680241:43 PROLACTIN (28297) Comments: PATIENT NOT FASTINGPERFORMED BY: [facility] Txkwhv2076 [facility] [place] [id number] Prolactin 13.8 ng/mL (Normal) Range: 4.8-23.3 00-Efb-390677:43 T3, FREE (TRIDOTHYRONINE) (24165) Comments: PATIENT NOT FASTINGPERFORMED BY: [facility] Betedv7081 [facility] [place] [id number] Triiodothyronine,Free,Serum 3.3 pg/mL (Normal) Range: 2.0-4.4 15-Bbq-366464:43 T4, FREE (THYROXINE) (02744) Comments: PATIENT NOT FASTINGPERFORMED BY: [facility] Dksooc9601 [facility] [facility] [place] [id number] T4,Free(Direct) 1.14 ng/dL (Normal) Range: 0.82-1.77 65-Ddc-620882:43 TSH (02580) Comments: PATIENT NOT FASTINGPERFORMED BY: [facility] Kmkvyi9723 [facility] [id number] Information: [id number] TSH 1.580 {uIU/mL} (Normal) Range: 0.450-4.500 :00 [...] CDIFF See Note (Normal) Comments: FAXED TO UT3.641 C. Diff DNA Positive-Toxigenic C. Difficile DNA [...] spora, or Mi crosporidia. TESTING PERFORMED AT [facility]. ORIGINAL REPORT ON FILE IN LAB CONTAINS ADDITIONAL TEST SITE INFORMATION. Ova/Parasite Exam NO OVA, CYSTS, OR PARASITES FOUND. : STOB See Note (Normal) Comments: Occult Blood Negative : WBCST See Note (Normal) Comments: Fecal WBC Lactoferrin Negative: No Fecal WBC Lactoferrin present :15 CDIFF See Note (Normal) Comments: C. Diff DNA Negative- No toxigenic C. Diff DNA Detected 1-Dgt-401254:55 Oxcarbazepine (Trileptal),S Comments: PERFORMED BY: [address] [id number] BY: [address] [id number] Oxcarbazepine 32 ug/mL (Normal) Range: 10-35 Comments: Detection Limit = 1 :55 CALCIFIDIOL (49425) VIT D Comments: PERFORMED BY: [employer] [facility] Yyrqbr[address] [place] [address] [id number] BY: [address] [id number] 25 Vitamin D, 25-Hydroxy 27.4 ng/mL (Abnormal) Range: 30.0-100.0 Comments: Vitamin D deficiency has been defined by the [place] ofMedicine and an Endocrine Society practice guideline as alevel of serum 25-OH vitamin D less than 20 ng/mL (1,2).The Endocrine Society went on to further define vitamin Dinsufficiency as a level between 21 and 29 ng/mL (2).1. IOM ([place] of Medicine). 2010. Dietary reference intakes for calcium and D. [place]: The National Academies Press.2. Gabbi MF, Singh MCKEON, Pollo JOSEPH, et al. Evaluation, treatment, and prevention of vitamin D deficiency: an Endocrine Society clinical practice guideline. JCEM. 2010; 96(7):1911-30. :55 Folate (47141) Comments: PERFORMED BY: [facility] [id number] BY: On [employer] Bill[address] [id number] Folate (Folic Acid), Serum 16.3 ng/mL (Normal) Comments: A serum folate concentration of less than 3.1 ng/mL isconsidered to represent clinical deficiency. 4-Bug-442799:55 VITAMIN B-12 (CYANOCOBALAMIN) Comments: PERFORMED BY: [facility] [id number] BY: On [employer] [address] [id number] (50343) Vitamin B12 889 pg/mL (Normal) Range: 211-946 :55 TSH (96619) Comments: PERFORMED BY: [facility] [facility] [place] [id number] BY: On [employer] Bill[address] [id number] TSH 1.670 {uIU/mL} (Normal) Range: 0.450-4.500 :55 SED RATE ERYTHROCYTE Comments: PERFORMED BY: [employer] [facility] [id number] BY: [employer] [id number] ([id number]) Sedimentation Rate-Westergren 6 mm/h (Normal) Range: 0-32 :55 METABOLIC PANEL, Comments: PERFORMED BY: [facility] [id number] BY: [facility] [id number] COMPREHENSIVE (38679) ALT (SGPT) 11 [iU]/L (Normal) Range: 0-32 [...] cells when received.This may adversely affect serumChemistries. 2-Hzq-187023:55 C-REACTIVE PROTEIN (96226) Comments: PERFORMED BY: [employer] Qjrrhy14[address] [facility] [id number] BY: [facility] [place] 682477 [facility] [id number] C-Reactive Protein, Quant 0.9 mg/L (Normal) Range: 0.0-4.9 4-Ejv-873646:55 CBC (AUTO) (07436) Comments: PERFORMED BY: [facility] BillThe [facility] FallsJnuvxs62[facility] [id number] BY: [employer] [id number] Platelets 213 {x10E3/uL} (Normal) Range: 140-415 Comments: [...] of these values in the reference population. 1-Nuy-952775:29 ANJELICA CULTURE-OTHER (14474) Comments: PATIENT NOT FASTINGPERFORMED BY: On The BillThe [facility] T[facility] FallsCcaruf[facility] [id number] Information: SRC:THRT [id number] Result 1 RRF (Normal) Comments: Routine respiratory jasper Upper Respiratory Culture Final report (Normal) :03 Rapid Strep Test, Office (32882) Rapid Strep Test, Negative (Normal) Office 42-Qpo-418368:55 CDIF See Note (Normal) Comments: A positive [...] in these cases. C. DIFF ANTIGENS POSITIVE 65-Yno-553369:30 CDIF See Note (Normal) Comments: RESULTS CALLED [...] in these cases. C. DIFF ANTIGENS POSITIVE 48-Rvh-926321:00 CDIF See Note (Normal) Comments: A positive [...] (Abnormal) UCLAR CLEAR (Normal) UCOL STRAW (Normal) 4-Frz-763319:05 C DIF TOXIN/AG See Note (Normal) Comments: C. DIFF ANTIGENS NEGATIVE 42-Mqh-693502:2 TRILEPT [id number] 20 ug/mL (Normal) Range: 10-35 4 Comments: Detection Limit = 1Performed at: [facility] [id number] Director: Reji Gibson MD, Phone: [phone] 61-Cjv-281080:1 C DIF TOXIN/AG See Note (Normal) Comments: RESULTS CALLED TO 06/23/11 VONDA BURTON.REPORT READ BACK BY SAME . * This is an amended result. * A 5 prior result that was reported as final has been changed.06/23/112004 by IESHAPreviously reported as: C. DIFF ANTIGENS POSITIVE 05-Fpm-863361:46 COMP METABOLIC GAP 11 (Normal) Range: 5-15 [...] Cyclospora, or Microspo ridia. TESTING PERFORMED AT [facility]. ORIGINAL REPORT ON FILE IN LAB CONTAINS ADDITIONAL TEST SITE INFORMATION. OVA/ PARASITES EXAM NO OVA, CYSTS, OR PARASITES FOUND. :21 WBC,STOOL See Note (Normal) Comments: RESULTS CALLED TO OFFICE TO RejiTPORPSTX87/04/10 1151 KRISTIAN MILLER.REPORT READ BACK BY SAME [...] Cyclospora, or Microspo ridia. TESTING PERFORMED AT [facility]. ORIGINAL REPORT ON FILE IN LAB CONTAINS ADDITIONAL TEST SITE INFORMATION. OVA/ PARASITES EXAM NO OVA, CYSTS, OR PARASITES FOUND. :20 WBC,STOOL See Note (Normal) Comments: FECAL WBCs NONE SEEN 49-Coh-548491:14 C DIF TOXIN See Note (Normal) :44 O AND P See Note (Normal) Comments: OVA AND PARASITES EXAM, ROUTINE These results were obtained using wet preparation(s) and trichrome stained smear. This test does not include testing for Crytosporidium parvum, Cyclospora, or Microspo ridia. TESTING PERFORMED AT [facility]. ORIGINAL REPORT ON FILE IN LAB CONTAINS [...] Cyclospora, or Microspo ridia. TESTING PERFORMED AT [facility]. 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 Indication: Convulsions Neuromuscular scoliosis : [...] Cystitis, acute Planned Observations URINE ANJELICA CULTURE-IDENTIFICATN (79252)Indication: Abnormal urine On: 7-Ihe-221732:25 Request MRSA Culture (64326)Indication: Thick sputum On: 1-Ysc-378845:32 Request Anaerobic & Aerobic Culture (25698)Indication: Thick sputum On: 13-Lqd-564390:46 Request Comments: collected from trachea stoma Anaerobic & Aerobic Culture (64488)Indication: Cellulitis of groin, right On: 4-Kdo-585822:44 Request TRILEPTAL-OXCARBAZEPINE 873771 (14371)Indication: Diarrhea On: :24 Request VITAMIN B12 AND FOLATES (50863)Indication: Diarrhea On: : Request CALCIFEDIOL (82689)Indication: Diarrhea On: :24 Request CALCIFEDIOL (25991)Indication: Diarrhea On: : Request TSH (THYROID STIMULATING HORMONE) (07243)Indication: Diarrhea On: : Request METABOLIC PANEL, COMPREHENSIVE (78103)Indication: Diarrhea On: : Request CBC, PLATELETS & AUT DIFF (95813)Indication: Diarrhea On: : Request OVA & PARASITE DIR SMEAR (47998)Indication: Diarrhea On: :46 Request ANJELICA CULTURE-STOOL (08315)Indication: Diarrhea On: 04-Zqj-198038:46 Request OCCULT BLOOD FECES SCREEN (80696)Indication: Diarrhea On: :46 Request LEUKOCYTE COUNT, FECAL (16042)Indication: Diarrhea On: :46 Request C-DIFFICILE, STOOL (05938)Indication: Diarrhea On: 86-Dsv-236838:46 Request OVA & PARASITE DIR SMEAR (24102)Indication: C. difficile diarrhea On: 7-Mth-092561:50 Request OCCULT BLOOD FECES SCREEN (98167)Indication: C. difficile diarrhea On: 1-Gxu-721712:50 Request ANJELICA CULTURE-STOOL (96638)Indication: C. difficile diarrhea On: 0-Ssl-845810:50 Request LEUKOCYTE COUNT, FECAL (35993)Indication: C. difficile diarrhea On: 7-Vuc-282125:50 Request C-DIFFICILE, STOOL (29360)Indication: C. difficile diarrhea On: 0-Gzk-307792:49 Request Clostridium difficile Culture (92050)Indication: Diarrhea On: 9-Vum-603674:52 Request URINALYSIS, W/ MICRO (33061)Indication: Dysuria On: :56 Request URINE ANJELICA CULTURE-SISSY COL COUNT (92804)Indication: Dysuria On: :54 Request OCCULT BLOOD FECES SCREEN (74051)Indication: Diarrhea On: : Request LEUKOCYTE COUNT, FECAL (18115)Indication: Diarrhea On: :05 Request ANJELICA CULTURE-STOOL (58682)Indication: Diarrhea On: :05 Request Clostridium difficile Toxin A+B, EIA (18344)Indication: Diarrhea On: :05 Request TRILEPTAL-OXCARBAZEPINE 030795 (27947)Indication: Convulsions On: 74-Dii-275908:55 Request PREALBUMIN (87394)Indication: Nutritional assessment On: :45 Request CALCIFIDIOL (57479) VIT D 25Indication: Vitamin D deficiency On: :44 Request TSH (28897)Indication: Hypertension On: :44 Request METABOLIC PANEL, COMPREHENSIVE (40745)Indication: Hypertension On: :44 Request LIPID PANEL (29155)Indication: Hypertension On: :44 Request CBC with auto diff (93983)Indication: Hypertension On: :44 Request Metabolic Panel, Basic (63836)Indication: Abnormal urine On: :03 Request VITAMIN B12 AND FOLATES (24177)Indication: Abnormal urine On: :03 Request CALCIFEDIOL (39899)Indication: Abnormal urine On: :03 Request Comments: vit d3 URINE ANJELICA CULTURE-SISSY COL COUNT (13154)Indication: Abnormal urine On: 5-Lbh-377750:52 Request TRILEPTAL-OXCARBAZEPINE 190637 (65945)Indication: Cerebral palsy On: 35-Tdt-088323:46 Request HCG Qualitative, Serum (05449)Indication: Amenorrhea On: 48-Ame-000882:45 Request PROLACTIN (17802)Indication: Amenorrhea On: 34-Guy-992156:44 Request PREALBUMIN (70812)Indication: Cerebral palsy On: 33-Hqu-285091:43 Request URINALYSIS (21366)Indication: Fatigue On: :43 Request T3, FREE (TRIDOTHYRONINE) (29324)Indication: Fatigue On: :43 Request T4, FREE (THYROXINE) (62588)Indication: Fatigue On: :43 Request Folate (54149)Indication: Fatigue On: :42 Request CALCIFIDIOL (04507) VIT D 25Indication: Fatigue On: :42 Request VITAMIN B-12 (CYANOCOBALAMIN) (55807)Indication: Fatigue On: :42 Request TSH (41770)Indication: Fatigue On: :42 Request SED RATE ERYTHROCYTE (48726)Indication: Fatigue On: :42 Request METABOLIC PANEL, COMPREHENSIVE (30771)Indication: Fatigue On: :42 Request C-REACTIVE PROTEIN (28624)Indication: Fatigue On: :42 Request CBC (AUTO) (83530)Indication: Fatigue On: :42 Request CULTURE,BODY FLUID (27065)Indication: Irregular Menstrual Cycle (Renamed from Irregular bleeding) On: 23-Scl-609408:07 Request Comments: urine Rapid Strep Test, Office (90569)Indication: Pharyngitis, acute On: 29-Fcc-674650:51 Request Urinalysis, Office (15106)Indication: Fatigue On: 25-Xqm-611535:49 Request HgA1C , Office (47533)Indication: Hyperglycemia On: 56-Ugn-349945:41 Request CALCIFIDIOL (59510) VIT D 25Indication: Vitamin D deficiency On: 43-Kii-430033:32 Request TRILEPTAL-OXCARBAZEPINE 960665 (23943)Indication: Convulsions On: :31 Request Metabolic Panel, Comprehensive (25151)Indication: Acute renal failure On: :31 Request CBC with manual diff (66702)Indication: Hypertension On: :31 Request CBC with manual diff (15240)Indication: Thrombocytopenia, unspecified On: :35 Request Comments: in citrate tube FIBRINOGEN (39608)Indication: Thrombocytopenia, unspecified On: Request PTT (Activated Partial Thromboplastin Time) (61232)Indication: Thrombocytopenia, unspecified On: Request PT (Prothrobim Time) (43439)Indication: Thrombocytopenia, unspecified On: Request HEPATITIS C ANTIBODY (88182)Indication: Thrombocytopenia, unspecified On: Request HEPATITIS B CORE ANTBD-IGG/IGM (28608)Indication: Thrombocytopenia, unspecified On: Request HEPATITIS B SURFACE ANTIGEN (26018)Indication: Thrombocytopenia, unspecified On: Request HEPATITIS B SURFACE ANTIBODY (89559)Indication: Thrombocytopenia, unspecified On: Request Methylmalonic acid, serum 93071Tpcysexlhw: Thrombocytopenia, unspecified On: Request Vitamin B-12 (cyanocobalamin) (21596)Indication: Thrombocytopenia, unspecified On: Request Sed Rate Erythrocyte (81957)Indication: Thrombocytopenia, unspecified On: Request Metabolic Panel, Comprehensive (66178)Indication: Thrombocytopenia, unspecified On: Request JENNY (ANTINUCLEAR ANTIBODY) (15343)Indication: Thrombocytopenia, unspecified On: Request CBC with manual diff (60814)Indication: Convulsions On: :31 Request Clostridium difficile Toxin A+B, EIA (08398)Indication: Diarrhea On: :31 Request OVA & PARASITE DIR SMEAR (17624)Indication: Diarrhea On: :44 Request OCCULT BLOOD FECES SCREEN (15280)Indication: Diarrhea On: :44 Request LEUKOCYTE COUNT, FECAL (84695)Indication: Diarrhea On: :44 Request ANJELICA CULTURE-STOOL (66930)Indication: Diarrhea On: :44 Request Clostridium difficile Toxin A+B, EIA (45096)Indication: Diarrhea On: 78-Jmh-853166:22 Request C DIFF AMPLIFIED PROBE (60230)Indication: Diarrhea On: 97-Oln-36124:51 Request Metabolic Panel, Comprehensive (45616)Indication: Acute renal failure On: :08 Request Comments: recheck prior to August. CALCIFIDIOL (63792) VIT D 25Indication: Vitamin D deficiency On: :08 Request Comments: recheck prior to August. TRILEPTAL-OXCARBAZEPINE 144518 (75496)Indication: Convulsions On: :08 Request Culture, Stool (41139)Indication: Diarrhea On: :01 Request C DIFF AMPLIFIED PROBE (56105)Indication: Diarrhea On: :01 Request C DIFF AMPLIFIED PROBE (97758)Indication: Diarrhea On: 46-App-462015:32 Request C DIFF AMPLIFIED PROBE (54126)Indication: Diarrhea On: 34-Coo-264178:51 Request URINE ANJELICA CULTURE-IDENTIFICATN (09950)Indication: Backache On: 6-Toh-409364:58 Request URINALYSIS (30822)Indication: Backache On: 1-Rvh-079142:58 Request Metabolic Panel, Comprehensive (12684)Indication: Profound mental retardation (Renamed from IQ under 20) On: 4-Wmt-050678:25 Request Comments: Dr Pino neurologist at [facility] CBC (Auto) (49548)Indication: Profound mental retardation (Renamed from IQ under 20) On: 1-Vgf-542375:25 Request TRILEPTAL-OXCARBAZEPINE 371842 (57451)Indication: Cerebral palsy On: 7-Utk-232006:24 Request COLUMN CHROMATOGRAPHY, SISSY, SINGLE (65013)Indication: Convulsions On: 88-Ioh-599033:54 Request Comments: trileptal 853915 Clostridium difficile Toxin A+B, EIA (09487)Indication: Diarrhea On: 69-Ihz-430794:26 Request CBC (Auto) (80598)Indication: Convulsions On: 44-Nnj-018118:25 Request Metabolic Panel, Comprehensive (14230)Indication: Convulsions On: 56-Pxm-801037:24 Request ANJELICA CULTURE-OTHER (73778)Indication: Pharyngitis, acute On: 0-Bqy-900587:44 Request C.Difficile, Stool (00986)Indication: Diarrhea On: 76-Zgu-843138:48 Request ANJELICA CULTURE-STOOL (52145)Indication: Diarrhea On: :55 Request C.Difficile, Stool (85185)Indication: Diarrhea On: :54 Request LEUKOCYTE COUNT, FECAL (57358)Indication: Diarrhea On: :27 Request OVA & PARASITE DIR SMEAR (90587)Indication: Diarrhea On: :27 Request C.Difficile, Stool (70845)Indication: Diarrhea On: :27 Request ANJELICA CULTURE-STOOL (32425)Indication: Diarrhea On: :27 Request TSH (51869)Indication: Unspecified bacterial pneumonia On: :48 Request CBC, Platelets & Auto Diff (34926)Indication: Unspecified bacterial pneumonia On: :48 Request Magnesium (44834)Indication: Unspecified bacterial pneumonia On: :48 Request Phosphorus (72118)Indication: Unspecified bacterial pneumonia On: :48 Request Metabolic Panel, Basic (33267)Indication: Unspecified bacterial pneumonia On: :48 Request Planned Encounters Medical; 4 Month FU - On: 10-Oct-2018 13:15 [facility] Sandra Bermudez DO, DO, Kathleen Planned Procedures Flu Vaccine (Quadrivalent) On: 06-Jun-2018 Intent 54126Nc: Sandra Bermudez DO Comments: Lot #[id number]-L dltd, IMDose prefilled syringegiven by:MARICARMEN Santana reviewed and ABN signed Sandra Bermudez DO Flu Vaccine (Quadrivalent) On: 02-Aug-2017 Intent 72647Wu: Sandra Bermudez DO Comments: Lot:[id number]:12/29Amt:0.5mlRoute:IMSite: Rt DltdGiven By: ALFREDITO James signed Sandra Bermudez DO Flu Vaccine (Quadrivalent) On: 14-May-2016 Intent 08212Ko: Roe Baxter MD Comments: Lot #[id number]/30/17ite-L dltd, IMDose prefilled syringegiven by:ALFREDITO Goldberg and ABN signed ADMINISTRATION OF INFLUENZA On: 02-Aug-2015 Intent VIRUS VACCINE (G0008)By: Linda Houston MD Flu Vaccine (Quadrivalent) On: 02-Aug-2015 Intent 30169Ks: Linda Houston MD Comments: Lot #:[id number] date:Amount given:0.5mlRoute: IMSite given:L DltdGiven by: Jessica BASSETT and ABN signed Quad Flu ELECTROCARDIOGRAM, COMPLETE On: 21-Mar-2015 Intent (ECG) (35132)By: Linda Houston MD CT - Brain/Head (IV Contrast On: 29-Nov-2014 Intent Needed)By: Linda Houston MD ADMINISTRATION OF INFLUENZA On: 06-Aug-2014 Intent VIRUS VACCINE (G0008)By: TIMBO Villegas Flu Vaccine (Quadrivalent) On: 06-Aug-2014 Intent 58599Mj: TIMBO Villegas Comments: Lot #:[id number] date:mount given:0.5mlRoute: IM Site given:Given by: to be given per patient home health nurse CATHETERIZE FOR URINE SPEC On: 09-Mar-2014 Intent (P9612)By: Linda Houston MD Comments: pls use pediatric cath- and fax results to [phone] SPECIMEN HNDLNG/TRNSPRT, OFFC > On: 09-Mar-2014 Intent LAB (70296)By: Linda Houston MD IMMUNIZ ADMNIN, 1 VAC, On: 28-Jul-2013 Intent SNGL/COMBO (12308)By: Archie BOLDEN, Comments: Lot #[id number] to nurse for admin Jessica Stack FLU VAC, SPLIT, >3 YEARS, On: 28-Jul-2013 Intent INTRAMUSC (55200)By: Jessica Almanza LPN SPECIMEN HNDLNG/TRNSPRT, OFFC > On: 18-May-2013 Intent LAB (85404)By: Linda Houston MD Eprescribed prescriptions On: 18-May-2013 Intent (G8553)By: Jessica Almanza LPN FLU VAC, SPLIT, >3 YEARS, On: 23-Jun-2011 Intent INTRAMUSC (08690)By: Archie BOLDEN, Comments: Lot #[id number]-Sreekanth arm, IMDose prefilledgiven by:Jessica Stack IMMUNIZ ADMNIN, 1 VAC, On: 23-Jun-2011 Intent SNGL/COMBO (62005)By: Jessica Almanza LPN Instructions Name Dates Details [...] for the procedure will be Dr Beck [facility]. The chief complaint is teeth cleanin End: [...] tube patient does not eat orally Neocate . 290 End: 13-Jun-2009 14:32 ml qid inbetween [...]
--- OUTSIDE RECORDS SUMMARY | 2018-10-08 11:32 | XMS RPT_ITS | Continuity of Care Document ---
:1990 Author Organization [facility] Address [address] [place] [address] Phone Care Team Providers Name Role Phone [...] Propionate 50 MCG/ACT Nasal Suspension 2 (two) Santa(s) Santa(s) each nostril qd for 90 days Quantity: [...] Houston MD Start : 20-Jan-2016 Active Nyamyc 143821 UNIT/GM External Powder uad Powder to affected area(s) bid and prn for 0 days Quantity: 15 {Bottle} Refills: 6 Ordered:19-Nov-2017 Karin Bermudez DO, DO, Kathleen Start : 19-Nov-2017 End : 17-Nov-2013 Active Nystatin 365029 UNIT/GM External Cream uad Cream to affected area(s) bid prn for 7 days Quantity: 1 {Bottle} Refills: 3 Ordered:03-Jun-2018 Karin Bermudez DO, DO, Kathleen Start : 03-Jun-2018 Active Nystatin 439765 UNIT/ML Mouth/Throat Suspension 5 ml ml 5 times day for 10 days Quantity: 250 {Milliliter} Refills: 9 Ordered:03-Apr-2016 Long KIMI, Jessica L Start : 03-Apr-2016 Active Nystatin Powder 1 Powder Powder tid for 10 days Quantity: 1 {Bottle} Refills: 3 Ordered:28-Jun-2017 Karin Bermudez DO, DO, Kathleen Start : 28-Jun-2017 Active Pen Mitchell 31G X 5 MM Miscellaneous 1 (one) [...] Quantity: 30 {Tablet} Refills: 6 Ordered:21-Mar-2015 Long DIP LUBE OPERATOR, Jessica L Start : 22-May-2013 Active [...] for 0 days Refills: 0 Ordered:23-Jun-2011 Long DIP LUBE OPERATOR, Jessica L End : 23-Jun-2011 Inactive [...] for 0 days Refills: 0 Ordered:23-Jun-2011 Long DIP LUBE OPERATOR, Jessica L End : 23-Jun-2011 Inactive MUCINEX FOR KIDS, 100MG/5ML (Oral Liquid) Liquid 15 cc tid 14 days for 0 days Refills: 0 Ordered:23-Jun-2011 Long DIP LUBE OPERATOR, Jessica L Start : 13-Jun-2009 End [...] Quantity: 30 {Packet} Refills: 2 Ordered:15-May-2016 Long DIP LUBE OPERATOR, Jessica L Start : 14-May-2016 End [...] nostril qd for 0 days Quantity: 1 {Santa} Refills: 3 Ordered:09-Apr-2015 Linda Houston MD Start : 09-Apr-2015 End : 20-Jan-2016 Discontinued Comments:This order discontinued per [employer]. MUCOMYST, 20% (Inhalation Solution) 1 bid/prn for 0 days Refills: 0 Ordered:23-Jun-2011 Long DIP LUBE OPERATOR, Jessica L End : 23-Jun-2011 Discontinued Comments:This order discontinued per [employer]. VYTONE, 1-1% (External Cream) Cream bid for 0 days Quantity: 1 {Cream} Refills: 3 Ordered:13-Jun-2009 Long DIP LUBE OPERATOR, Jessica L Start : 13-Jun-2009 End [...] Comments: See Note; NOTES: [facility] [address] [place] [address] OFFICE VISIT Date of Service: 05/25/18 MR#: [id number] Acct: [id number] Name: MANDY MONTERO Rep #: [id number] : 1990 Provider: Lawrence Weiner MD Age/Sex: 28/F Location: [facility].PMW Status: Signed Assessment AND Plan [...] Department Summary Result: Comments: See Note; NOTES: [facility] Medical Records Department [address] [place] [address] Emergency Department Summary 01/24/18 1645 MR#: [id number] Acct: [id number] Name: MANDY MONTERO Rep #: [id number] : 1990 27 From: Stephan Hughes MD [...] Discharged to home Impression: 1. Cellulitis left dean k region 2. Dysuria of unknown etiology 3. History of MRDD 4. History of Propulsid 5. History of chronic respiratory failure on ventilator This note was generated with Ecovision dictation software. It m ay contain incorrect [...] Instructions: Mandy prescription was electronically transmitted to [place] [facility] What to do if you have Problems For any increased pain, shortness of breath, bleeding, nausea or vomiting, chest pain, or any unexpected problems, contact your Primary Care Provider. Call [facility] ([phone]) or report to the closest Emergency Room. Call 911 if necessary. 01/24/18 8621 <Electronically signed by Stephan Hughes MD> Date Stephan Hughes MD Cosigner Signature (If Indicated): Date CC: Sandra Bermudez DO 10-Dec-2017 Pulmonary Visit Report Result: Comments: See Note; NOTES: [facility] [place] [address] [place] [address] OFFICE VISIT Date of Service: 12/09/17 MR#: [id number] Acct: [id number] Name: MANDY MONTERO Rep #: [id number] : 1990 Provider: Lawrence Weiner MD Age/Sex: 27/F Location: [facility].PMW Status: Signed Assessment AND Plan 1. Chronic [...] Comments: See Note; NOTES: [facility] [place] [address] [place] [address] OFFICE VISIT Date of Service: 09/02/17 MR#: [id number] Acct: [id number] Name: MANDY MONTERO Rep #: [id number] : 1990 Provider: Lawrence Weiner MD Age/Sex: 27/F Location: [facility].PMW Status: Signed Assessment AND Plan [...] mg (10 mL) PO QDAY PRN allergy djvpuxsnB74 .2 Ok to give through PEG Follow [...] a cot with her mother and healthcare physical therapist assistant. Family reports the patient has had [...] Department Summary Result: Comments: See Note; NOTES: [facility] Medical Records Department [address] [facility] [place] [address] Emergency Department Summary MR#: [id number] Acct: [id number] Name: MANDY MONTERO Rep #: [id number] : 1990 26 From: Flip Jessica MD PCP: Sandra Bermudez DO Status: [facility] ER DATE OF SERVICE: 03/06/2017 [...] . Flip Jessica MD T: NTS JOB: [id number] 03/10/17805 <Electronically signed by Flip Jessica MD> Date Flip Jessica MD Cosigner Signat ure (If Indicated): Date CC: Sandra Bermudez DO Date Dictated: 03/06/171722 Date Transcribed: 03/06/171722 Delivery Room Supervisor: Signed 06-Mar-2017 Discharge Instruction Result: Comments: See Note; NOTES: [facility] Medical Records Department [address] [place] [address] Discharge Instruction 03/06/171719 MR#: [id number] Acct: [id number] Name: ROMELIA MONTERO Rep #: [id number] : 1990 26 From: Flip Jessica MD [...] problems, contact your Primary Care Provider. Call [employer] [facility] ([phone]) or report to the closest Emergency Room. Call 911 if necessary. 03/06/17 1720 <Electronically signed by Flip Jessica MD> Date Flip Jessica MD Cosigner Signature (If Indicated): Date CC: Sandra Bermudez DO 06-Mar-2017 Chest 1 View Result: Comments: See Note; NOTES: [facility] Imaging Services [address] [place] [address] Verdana 4d Chest 1 View MR#: [id number] Acct: [id number] Name: MANDY MONTERO Rep #: [id number] : 1990 F 26 From: Merritt Bolton MD PCP: Sandra Bermudez DO Status: REG ER Study: Chest 1 View Date of Exam: 03/06/17 Exam# [id number] Ordering Dr: Flip Jessica MD STUDY: X-RAY [...] CC: Flip Jessica MD; Sandra Bermudez DO Delivery Room Supervisor: Signed 06-Mar-2017 Thoracic Spine 3 Views Result: Comments: See Note; NOTES: [facility] Imaging Services [address] [place] [address] Verdana 4d Thoracic Spine 3 Views MR#: [id number] Acct: [id number] Name: MANDY MONTERO Rep # : [id number] : 1990 F 26 From: Merritt Bolton MD PCP: Sandra Bermudez DO Status: REG ER Study: Thoracic Spine 3 Views Date of Exam: 03/06/17 Exam# [id number] Ordering Dr: Flip Jessica MD TERESA DY: [...] CC: Flip Jessica MD; Sandra Bermudez DO Delivery Room Supervisor: Signed 10-Sep-2016 Chest 1 View (Portable) Result: Comments: See Note; NOTES: [facility] Imaging Services [address] [place] [address] Verdana 4d Chest 1 View (Portable) MR#: [id number] Acct: [id number] Name: MANDY MONTERO Rickey Rep #: [id number] : 1990 F 26 From: Mandy Chávez MD PCP: Sandra Bermudez DO Status: PRE ER Study: Chest 1 View (Portable) Date of Exam: 09/10/16 Exam# [id number] Ordering Dr: Vinnie Sher MD STUDY: X-RAY [...] the previous radiograph. El ectronically Signed: Mandy Chávze MD at 23:49 EST , Service support [phone], CC: Linden Sher MD; Sandra Bermudez DO Delivery Room Supervisor: Signed 12-Mar-2016 Emergency Department Summary Result: Comments: See Note; NOTES: [facility] Medical Records Department [address] [place] [address] Emergency Department Summary MR#: [id number] Acct: [id number] Name: MANDY MONTERO Rep #: [id number] : 1990 25 From: Joseph Mcgee MD [...] Baxter Date Dictated: 02/29/16112 Date Transcribed: 02/29/16112 Delivery Room Supervisor: Signed 28-Feb-2016 Discharge Instruction Result: Comments: See Note; NOTES: [facility] Medical Records Department [address] [place] [address] Discharge Instruction 02/28/161925 MR#: [id number] Acct: [id number] Name: MANDY MONTERO Rep #: [id number] : 1990 25 From: Joseph Mcgee MD [...] problems, contact your doctor. Call [facility] ([phone]) or report to the closest Emergency Room. Call 911 if necessary. 224 <Electronically signed by Joseph Mcgee MD> Date Joseph Mcgee MD Cosigner Signature (If Indicated): Date ___ CC: Roe Baxter 28-Feb-2016 Abdomen/Pelvis without Cont Result: Comments: See Note; NOTES: [facility] Imaging Services [address] [place] [address] Verdana 4d Abdomen/Pelvis without Cont MR#: [id number] Acct: [id number] Name: MANDY MONTERO Rep #: [id number] : 1990 F 25 From: Seymour Villagomez MD PCP: Roe Baxter Status: REG ER Study: Abdomen/Pelvis without Cont Date of Exam: 02/28/16 Exam# [id number] Ordering Dr: Joseph Patton MD STUDY: CT [...] MD at 18:47 EDT , Service support [phone], CC: Roe Baxter; Joseph Mcgee MD Delivery Room Supervisor: Signed 25-Feb-2016 Emergency Department Summary Result: Comments: See Note; NOTES: [facility] Medical Records Department [address] [place] [address] Emergency Department Summary MR#: [id number] Acct: [id number] Name: MANDY MONTERO Rep #: [id number] : 1990 25 From: Tomás Willis MD [...] C: Roe Baxter MD T: NTS JOB: [id number] 02/25/161516 <Electronically signed by Tomás Willis MD> Date Tomás Willis MD Cosigner Signature (If Indicated): Date CC: Roe Baxter Date Dictated: 02/23/161520 Date Transcribed: 02/23/161520 Delivery Room Supervisor: Signed 23-Feb-2016 Discharge Instruction Result: Comments: See Note; NOTES: [facility] Medical Records Department [address] [place] [address] Discharge Instruction 02/23/161513 MR#: [id number] Acct: [id number] Name: MANDY MONTERO Rep #: [id number] : 1990 From: Tomás Willis MD PCP: [...] problems, contact your doctor. Call [facility] ([phone]) or report to the closest Emergency Room. Call 911 if necessary. 6 1516 <Electronically signed by Tomás Willis MD> Date Tomás Willis MD Cosigner Signature (If Indicated): Date CC: Roe Baxter 28-Jan-2016 Chest 1 View (Portable) Result: Comments: See Note; NOTES: [facility] Imaging Services [address] [place] [address] Verdana 4d Chest 1 View (Portable) MR#: [id number] Acct: [id number] Name: MANDY ACUNA Rep #: [id number] : 1990 F 25 From: Abdirahman Awad MD PCP: Linda Houston MD Status: PRE ER Study: Chest 1 View (Portable) Date of Exam: 01/28/16 Exam# [id number] Ordering Dr: Edita Willis MD STUDY: X-RAY [...] MD at 22:53 EDT , Service support [phone], RAD/Chest 1 View (Portable) IMPRESSION: Retrocar diac density in left lower lobe possibly representing atelectasis or infiltrate. Recommend lateral view for further assessment Electronically Signed: Abdirahman Awad MD at 22:53 EDT , Service support [phone], CC: Linda Houston MD; Tomás Willis MD Delivery Room Supervisor: Signed Family History Unknown Family Member [...] lb :43 Comments: [facility] Temperature 97 f Comments: Method: Temporal Pulse [...] 0.00 cm Results Date Description Value Details 40-Qzc-535916:37 TSH (53998) Comments: PATIENT NOT FASTINGPERFORMED BY: [facility]bloomyR[facility], Old BridgeJvmrzg[address] [place] [address] [id number] BY: [employer] [id number] TSH 1.030 {uIU/mL} (Normal) Range: 0.450-4.500 31-Pil-327099:37 T4, FREE (THYROXINE) Comments: PATIENT NOT FASTINGPERFORMED BY: [employer] Kekhrk3349 [facility] [id number] BY: [employer] [id number] ([address]) T4,Free(Direct) 0.84 ng/dL (Normal) Range: 0.82-1.77 :37 T3, FREE (TRIDOTHYRONINE) Comments: PATIENT NOT FASTINGPERFORMED BY: [facility], Old BridgeYjtnhl7763 [facility] [id number] BY: BN [address] [id number] ([address]) Triiodothyronine (T3), Free 2.6 pg/mL (Normal) Range: 2.0-4.4 00-Hmf-111191:37 CALCIFIDIOL (46771) VIT D Comments: PATIENT NOT FASTINGPERFORMED BY: [facility]6370 [facility] [id number] BY: [address] [id number] 25 Vitamin D, 25-Hydroxy 42.6 ng/mL (Normal) Range: 30.0-100.0 Comments: Vitamin D deficiency has been defined by the Masterson ofProm[facility] Hospitalcine and an Endocrine Society practice guideline as alevel of serum 25-OH vitamin D less than 20 ng/mL (1,2).The Endocrine Society went on to further define vitamin Dinsufficiency as a level between 21 and 29 ng/mL (2).1. IOM (Masterson of Medicine). 2010. Dietary reference intakes for calcium and D. [place]: The National Academies Press.2. Gabbi MF, Singh MCKEON, Pollo JOSEPH, et al. Evaluation, treatment, and prevention of vitamin D deficiency: an Endocrine Society clinical practice guideline. JCEM. 2010; 96(7):1911-30. 77-Beg-620688:37 TRILEPTAL-OXCARBAZEPINE 785831 Comments: send results to dr delgado too; PATIENT NOT FASTINGPERFORMED BY: Internet REITMesilla Valley HospitalRllmza3548 [facility] [id number] BY: [address] [id number] (180[address]) Oxcarbazepine 49 ug/mL (Abnormal) Range: 10-35 Comments: Detection Limit = 1 91-Lgw-326795:37 CBC with auto diff Comments: send results to dr delgado too; PATIENT NOT FASTINGPERFORMED BY: [facility]Core[facility]6370 [facility] [id number] BY: [address] [id number] ([address]) Immature Grans (Abs) 0.0 {x10E3/uL} (Normal) Range: [...] 3.77-5.28 WBC 6.3 {x10E3/uL} (Normal) Range: 3.4-10.8 13-Ith-588965:37 METABOLIC PANEL, Comments: send results to dr delgado too; PATIENT NOT FASTINGPERFORMED BY: CB [facility] Hpjnhw8106 [facility] [id number] BY: BN [facility] [address] [id number] [facility] ([address]) ALT (SGPT) 38 [iU]/L (Abnormal) Range: 0-32 [...] 6-20 Glucose 237 mg/dL (Abnormal) Range: 65-99 52-Hll-940252:37 HGB A1C (66281) Comments: PATIENT NOT FASTINGPERFORMED BY: CB [facility] Adytxd7017 [facility] [id number] BY: BN [facility] [address] [id number] Hemoglobin A1c 6.3 % (Abnormal) Range: 4.8-5.6 Comments: . Prediabetes: 5.7 - 6.4 Diabetes: >6.4 Glycemic control for adults with diabetes: <7.0 34-Kbo-138938:00 Urinalysis, Complete Comments: How was Urine Obtained? [facility]CIMENWA[facility] [address] [place], [place], [id number] MUCUS, URINE 0 SEEN {/hpf} (Normal) BACTERIA [...] (Abnormal) CLARITY Clear (Normal) COLOR Yellow (Normal) 84-Kdm-680522:50 Basic Metabolic Profile (BMP) Comments: [facility] [address] [place], [place], [address] GAP 8 (Normal) Range: 5-15 CO2 28.0 [...] A.D.A. criteria.Please note revised GLUCOSE reference range vyhshlokt03/02/2018. 93-Cue-067685:50 CBC W/Diff, Automated Comments: [facility] [address] [place], [address] Absolute Lymph 1.52 {X10_3/ul} (Normal) [...] 4.2-5.4 WBC 6.0 K/mm3 (Normal) Range: 4.4-11.0 84-Tsn-59461:00 Lactic Acid Comments: Yes/No query for Sepsis Lactate Rule [facility] [address] [place], [address] LACTIC ACID 2.0 mmol/L (Normal) Range: 0.4-2.0 Comments: Critical Result(s) Called at: 18:33:30 01/24/2018 by:Yohana saenz [facility] 74-Mwp-560182:39 TSH (57334) Comments: PATIENT NOT FASTINGPERFORMED BY: [facility]6370 [facility] [id number] BY: [address] [id number] TSH 1.150 {uIU/mL} (Normal) Range: 0.450-4.500 :39 METABOLIC PANEL, Comments: PATIENT NOT FASTINGPERFORMED BY: [facility] REITTracey [place] 2505270 [facility] [id number] BY: [employer] [id number] COMPREHENSIVE (52112) ALT (SGPT) 18 [iU]/L (Normal) Range: 0-32 [...] Glucose, Serum 138 mg/dL (Abnormal) Range: 65-99 16-Bww-341730:39 CBC W/AUTO DIFF WBC Comments: PATIENT NOT FASTINGPERFORMED BY: CB [facility] Duivnr4367 Mckenzie ReyesC[facility] [id number] BY: BN [facility] Hrdsgihtdk9397 [facility] [id number] (58497) Immature Grans (Abs) 0.0 {x10E3/uL} (Normal) Range: [...] 3.77-5.28 WBC 6.6 {x10E3/uL} (Normal) Range: 3.4-10.8 30-Bam-653469:39 TRILEPTAL-OXCARBAZEPINE 621699 Comments: PATIENT NOT FASTINGPERFORMED BY: [facility] Czxoxh8430 [facility] Hospitalblin [place] [id number] BY: Lab[address] [id number] (21801) Oxcarbazepine 28 ug/mL (Normal) Range: 10-35 Comments: Detection Limit = 1 :39 CALCIFIDIOL (95637) VIT D Comments: PATIENT NOT FASTINGPERFORMED BY: [facility] Orkdes4693 [facility] Hospitalblin [place] [id number] BY: Lab[address] [id number] 25 Vitamin D, 25-Hydroxy 56.3 ng/mL (Normal) Range: 30.0-100.0 Comments: Vitamin D deficiency has been defined by the Masterson ofMedicine and an Endocrine Society practice guideline as alevel of serum 25-OH vitamin D less than 20 ng/mL (1,2).The Endocrine Society went on to further define vitamin Dinsufficiency as a level between 21 and 29 ng/mL (2).1. IOM (Masterson of Medicine). 2010. Dietary reference intakes for calcium and D. [place]: The National Academies Press.2. Gabbi MF, Singh [place], Pollo JOSEPH, et al. Evaluation, treatment, and prevention of vitamin D deficiency: an Endocrine Society clinical practice guideline. JCEM. 2010; 96(7):1911-30. 76-Fwi-549112:39 HGB A1C (22635) Comments: PATIENT NOT FASTINGPERFORMED BY: [facility] Olqjhq4148 [facility] [id number] BY: [address] [id number] Hemoglobin A1c 5.7 % (Abnormal) Range: 4.8-5.6 Comments: . Pre-diabetes: 5.7 - 6.4 Diabetes: >6.4 Glycemic control for adults with diabetes: <7.0 :11 THROAT CULTURE (04113) Comments: PATIENT NOT FASTINGPERFORMED BY: [facility] Mvvzql7380 [facility] [id number] Information: SRC:TH Result 1 RRF (Normal) Comments: Routine respiratory jasper Upper Respiratory Culture Final report (Normal) :35 CBC W/Diff, Automated Comments: [facility] [address] [place], [place], [address] Absolute Lymph 1.23 {X10_3/ul} (Normal) Range: 0.83-4.51 [...] K/mm3 (Normal) Range: 4.4-11.0 :35 CRP Comments: [facility] [address] [place], [address] C-REACTIVE PROT < 2.90 mg/L (Normal) Range: 0.0-3.0 Comments: C-Reactive Protein (CRP) provides useful information for thediagnosis, therapy and monitoring of inflammatory processesand associated diseases. For the evaluation of Relative Riskfor Cardiovascular Dise ase, a High Sensitivity CRP (HSCRP)should be ordered. 8-Siy-011735:15 Culture, Nose Comments: [facility] [address] [place], [address] CUN See Note (Normal) Comments: Comments: THICK [...] $ <=20 S(NF) indicates non-formulary drug at [facility]. Ap proval by Infectious Disease Specialist required before non-formulary drugs may be ordered and/or dispensed. Pseudomonas aeroginosa: REACTION Cefepime $ <=1 S Ceftazidime *NF 2 S Ciprofloxacin $ 2 I Gentamicin $ <=1 S Imipenem *NF 1 S Levofloxacin $ 4 I Piperacillin/Tazobactam $$ 8 S Tobramycin $ <=1 S(NF) rocky cates non-formulary drug at [facility]. Approval by Infectious Disease Specialist required before non-formulary drugs may be ordered and/or dispensed. 30-Zzf-548484:34 LIPID PANEL (23017) Comments: PATIENT NOT FASTINGPERFORMED BY: CB [facility] Bsjglj2206 [facility] [id number] BY: [facility] [address] [id number] LDL/HDL Ratio 1.5 {ratio_units} (Normal) Range: 0.0-3.2 Comments: LDL/HDL Ratio Men Women 1/2 Avg.Risk 1.0 1.5 Av g.Risk 3.6 3.2 2X Avg.Risk 6.2 5.0 3X Avg.Risk 8.0 6.1 LDL Cholesterol Calc 76 mg/dL (Normal) Range: 0-99 VLDL Cholesterol Dirk 17 mg/dL (Normal) Range: 5-40 HDL Cholesterol 50 mg/dL (Normal) Triglycerides 84 mg/dL (Normal) Range: 0-149 Cholesterol, Total 143 mg/dL (Normal) Range: 100-199 78-Ibr-704766:34 METABOLIC PANEL, Comments: PATIENT NOT FASTINGPERFORMED BY: CB [facility] Gvetoo4207 [facility] [id number] BY: BN [facility] Zussnnqivb1503 [facility] [id number] COMPREHENSIVE (29454) ALT (SGPT) 20 [iU]/L (Normal) Range: 0-32 [...] Glucose, Serum 137 mg/dL (Abnormal) Range: 65-99 44-Doz-652643:34 CBC with auto diff Comments: PATIENT NOT FASTINGPERFORMED BY: HARRIET [facility] Acxlbq3517 Mckenzie Hansen [place] [id number] BY: LabCo[address] [id number] (16553) Immature Grans (Abs) 0.0 {x10E3/uL} (Normal) Range: [...] 3.77-5.28 WBC 4.5 {x10E3/uL} (Normal) Range: 3.4-10.8 34-Nwk-622186:34 TRILEPTAL-OXCARBAZEPINE 107582 Comments: PATIENT NOT FASTINGPERFORMED BY: [facility] [facility]6370 [facility] [id number] BY: Lab[address] [id number] (27556) Oxcarbazepine 23 ug/mL (Normal) Range: 10-35 Comments: Detection Limit = 1 92-Orl-294751:34 HGB A1C (85908) Comments: PATIENT NOT FASTINGPERFORMED BY: LabCoTracey [place] 2505270 [facility] [id number] BY: LabCo[address] [id number] Hemoglobin A1c 6.1 % (Abnormal) Range: 4.8-5.6 Comments: . Pre-diabetes: 5.7 - 6.4 Diabetes: >6.4 Glycemic control for adults with diabetes: <7.0 65-Lfe-510210:34 CALCIFIDIOL (91855) VIT D Comments: PATIENT NOT FASTINGPERFORMED BY: LabAveillantTracey Ville 2505270 [facility] [id number] BY: LabAveillant[address] [id number] 25 Vitamin D, 25-Hydroxy 49.1 ng/mL (Normal) Range: 30.0-100.0 Comments: Vitamin D deficiency has been defined by the Masterson ofMedicine and an Endocrine Society practice guideline as alevel of serum 25-OH vitamin D less than 20 ng/mL (1,2).The Endocrine Society went on to further define vitamin Dinsufficiency as a level between 21 and 29 ng/mL (2).1. IOM (Masterson of Medicine). 2010. Dietary reference intakes for calcium and D. [place]: The National Academies Press.2. Gabbi MF, Singh NC, Pollo JOSEPH, et al. Evaluation, treatment, and prevention of vitamin D deficiency: an Endocrine Society clinical practice guideline. JCEM. 2010; 96(7):1911-30. 42-Hnk-393974:15 Culture, Throat Comments: [facility] [address] [place], [address] CUT See Note (Normal) Comments: Culture, ThroatMixed [...] $ <=20 S(NF) indicates non-formulary drug at [facility]. Approval by Infec tious Disease Specialist required before non-formulary drugs may be ordered and/or dispensed. 07-Zou-62398:30 Culture, Wound Comments: [facility] [address] [place], [address] CUW See Note (Normal) Comments: Comments: COLLECTED [...] $ <=20 S(NF) indicates non-formulary drug at [facility]. Approval by Infectious Disease Specialist required before non-formulary drugs may be ordered and/or dispensed. Pseudomonas aeroginosa: REACTION Cefepime $ <=1 S Ceftazidime *NF <=1 S Ciprofloxacin $ 0.5 S Gentamicin $ <=1 S Imipenem *NF 1 S Levofloxacin $ 1 S Piperacillin/Tazobactam $$ 8 S Tobramycin $ <=1 S(NF) indicates non-formulary drug at [facility]. Approval b y Infectious Disease Specialist required before non-formulary drugs may be ordered and/or dispensed. :37 Base Excess ISTAT Comments: [place] [address] [place] [address] BE ISTAT 6 mmol/L (Abnormal) :37 Bicarbonate ISTAT Comments: [place] [address] [place] [address] HCO3 ISTAT 30 mmol/L (Abnormal) Range: 22-26 Comments: Site = R BrachialAllens Test = NAMode = A-CDevice = VentFIO2 = 40Results To = ED MDTime Given = 2350MV = 4.5VT = 250RR = 21PEEP = 7 :37 Blood Gas Specimen Type Comments: [place] [address] [place], [place] [address] BLD GAS TYPE ART (Normal) 55-Ibe-586629:37 pCO2 - ISTAT 40.0 {mmHg} (Normal) Comments: [place] [address] [place], [place] [address] Range: 35-45 :37 pH - I-STAT 7.48 (Abnormal) Comments: [place] [place] [address] Range: 7.35-7.45 :37 PO2 I-STAT 65 {mmHG} (Abnormal) Comments: [place] [address] [place] [address] Range: 75-100 61-Qic-650527:37 SO2 ISTAT 94 % (Abnormal) Comments: [facility] [place] [address] Range: 95-99 59-Jgp-179290:37 Total Carbon Dioxide ISTAT Comments: [facility] [place] [address] [place] [address] TOTAL CO2 ISTAT 31 mmol/L (Normal) 67-Ira-408261:55 Basic Metabolic Profile (BMP) Comments: [place] [address] [place], [address] GAP 5 (Normal) Range: 5-15 CO2 [...] Range: 70-110 :55 CBC W/Diff, Automated Comments: [place] [address] [place], [address] Absolute Lymph 1.51 {X10_3/ul} (Normal) Range: [...] 4.2-5.4 WBC 4.6 K/mm3 (Normal) Range: 4.4-11.0 0-Jrr-441693:52 Anaerobic and Aerobic Comments: PERFORMED BY: [facility]6370 [facility] [id number] Information: buttock SRC:WO Culture Antimicrobial MIHEAD (Normal) [...] 72 hours. Anaerobic Culture Final report (Normal) 4-Lxs-401665:39 CBC With Differential/Platelet Comments: PERFORMED BY: CB [facility] Drmjxu6874 [facility] [id number] BY: BN [facility] [address] [id number] Immature Grans (Abs) 0.0 {x10E3/uL} (Normal) Range: [...] 3.77-5.28 WBC 5.1 {x10E3/uL} (Normal) Range: 3.4-10.8 9-Rmk-083300:39 Comp. Metabolic Panel Comments: PERFORMED BY: CB [facility] Anvkte4753 [facility] [id number] BY: BN [facility] Sahvvxrvzr4839 [facility] [id number] (14) ALT (SGPT) 27 [iU]/L (Normal) Range: [...] 65-99 :39 Oxcarbazepine (Trileptal),S Comments: PERFORMED BY: Krush [facility] [id number] BY: [address] [id number] Oxcarbazepine 24 ug/mL (Normal) Range: 10-35 Comments: Detection Limit = 1 :39 TSH 1.640 {uIU/mL} Comments: PERFORMED BY: Krush [facility] [id number] BY: [address] [id number] (Normal) Range: 0.450-4.500 :39 Vitamin B12 and Folate Comments: PERFORMED BY: Krush [facility] [id number] BY: Internet REIT[address] [id number] Folate (Folic Acid), 8.0 ng/mL (Normal) Comments: A serum folate concentration of less than 3.1 ng/mL isconsidered to represent clinical deficiency. Serum Vitamin B12 1048 pg/mL Range: 211-946 (Abnormal) : Vitamin D, 40.7 ng/mL (Normal) Comments: PERFORMED BY: [employer] [id number] BY: [address] [id number] 39 25-Hydroxy Range: 30.0-100.0 Comments: Vitamin D deficiency has been defined by the [place] ofMedicine and an Endocrine Society practice guideline as alevel of serum 25-OH vitamin D less than 20 ng/mL (1,2).The Endocrine Society went on to further define vitamin Dinsufficiency as a level between 21 and 29 ng/mL (2).1. IOM (Masterson of Medicine). 2010. Dietary reference intakes for calcium and D. [place]: The National Academies Press.2. Gabbi MF, Singh MCKEON, Pollo JOSEPH, et al. Evaluation, treatment, and prevention of vitamin D deficiency: an Endocrine Society clinical practice guideline. JCEM. 2010; 96(7):0081-30. 37-Npp-202487:00 Urinalysis, Complete Comments: Order Date: 02/28/16How was Urine Obtained? [facility] [address]ynfdphmo[address] [place], [place], [id number] MUCUS, URINE RARE {/hpf} (Normal) BACTERIA 0 [...] CLARITY Sl. Cloudy (Normal) COLOR Yellow (Normal) 16-Ekx-772891:00 Basic Metabolic Profile (BMP) Comments: [facility] [address] [place], [place], [id number] GAP 8 (Normal) Range: 5-15 CO2 26.0 [...] 7-18 GLU 84 mg/dL (Normal) Range: 70-110 37-Khq-223866:00 CBC W/Diff, Automated Comments: [facility] [address] [place], [place], [id number] Absolute Lymph 1.11 {X10_3/ul} (Normal) Range: 0.83-4.51 [...] 4.2-5.4 WBC 5.5 K/mm3 (Normal) Range: 4.4-11.0 21-Cnw-009802:00 Lactic Acid Comments: [address] [place], [id number] LACTIC ACID 1.6 mmol/L (Normal) Range: 0.4-2.0 :00 Lipase Comments: [address] [place], [address] LIPASE 177 U/L (Normal) Range: 73-393 62-Jfo-703073:00 Liver Profile Comments: [address] [place], [address] D BILI 0.08 mg/dL (Normal) Range: [...] (Normal) Range: 6.4-8.2 :30 CDIFF (Molecular) Comments: [address] [place], [id number] CDIFF See Note (Normal) Comments: Cdiff-MolecularC. Diff DNA Negative- No toxigenic C. Diff DNA Detected :30 ENTERIC PATHOGEN PANEL STOOL Comments: [address] [place], [id number] EP PANEL See Note (Normal) Comments: EP [...] DetectedRotavirus Not Detected :30 Stool Lactoferrin/WBC Comments: [facility] [address] [place], [place], [address] WBCST See Note (Normal) Comments: Stool Lacto/WBCFecal WBC Lactoferrin Negative: No Fecal WBC Lactoferrin present :30 Stool Occult Blood iFOB Comments: [facility] [address] [place], [address] STOB See Note (Normal) Comments: STOB iFOBOccult Blood Negative 70-Wtg-741988:35 Urinalysis, Complete Comments: How was Urine Obtained? [facility]CIMENWAk[facility] Lgtleisaso7217 [place], [address] MUCUS, URINE 0 SEEN {/hpf} [...] Yellow (Normal) :00 CBC W/Diff, Automated Comments: [facility] [address] [place], [address] SMEAR COMMENT SCANNED (Normal) Comments: [...] 4.2-5.4 WBC 6.8 K/mm3 (Normal) Range: 4.4-11.0 10-Two-505894:00 Comprehensive Metabolic Profil Comments: [facility] [address] [place], [place], [address] GAP 9 (Normal) Range: 5-15 CO2 29.0 [...] 7-18 GLU 84 mg/dL (Normal) Range: 70-110 36-Jnx-757681:00 Lactic Acid Comments: [facility] Smfdzingro[address] [place], [place], [address] LACTIC ACID 2.6 mmol/L (Abnormal) Range: 0.4-2.0 94-Xuh-970348:00 Partial Thromboplast Time Comments: [facility] [address] [place], [place], [address] PTT 26.7 s (Normal) Range: 24.1-36.2 84-Gwn-306632:00 Prothrombin Time w/INR Comments: [facility] [address] [place], [place], [address] INR 1.0 (Normal) PROTIME 13.1 s (Normal) Range: 11.7-14.9 20-Jan-20161:25 PREALBUMIN (84948) Comments: PERFORMED BY: [facility], Old BridgeKqtksl3131 [facility] [id number] Prealbumin 27 mg/dL (Normal) Range: 9-31 Comments: [...] - 36 >70 years 9 - 32 64-Qrx-059286:16 Clostridium difficile Toxin Comments: PERFORMED BY: [facility], Old BridgeNmvolm3370 [facility] [id number] A+B, EIA (57968) C difficile Toxins A+B, EIA Negative (Normal) 51-Rez-692967:00 Culture, Urine Comments: [facility] [address] [place], [place], [address] CUUR See Note (Normal) Comments: Urine CultureCulture exhibits no growth. 47-Gjk-032706:00 Urinalysis, Complete Comments: How was Urine Obtained? CLEAN [facility] [address] [place], [place], [address] MUCUS, URINE 0 SEEN {/hpf} (Normal) BACTERIA [...] CLARITY Sl. Cloudy (Normal) COLOR Yellow (Normal) 50-Asq-569490:30 Culture, Urine Comments: [facility] [address] [place], [place], [id number] CUUR See Note (Normal) Comments: Urine CultureORGANISM 1: Enterococcus faecalisColony Count >100,000 Enterococcus faecalis: REACTION Ampicillin $ <=2 S Benzylpenicillin NF 2 S Ciprofloxacin $ <=0.5 S Gentamicin SYN-S S Levofloxacin $ 1 S Linezolid $$$$ 2 S Nitrofurantoin $ <=16 S Streptomycin $ SYN- S S Tetracycline NF >=16 R Vancomycin $ 1 S(NF) indicates non-formulary drug at [facility]. Approval by Infectious Disease Specialist required before non-formulary drugs may be ordered and/or dispensed. * CLSI guidelines does not recommend testing of cephalosporins. This interpretation is deduced from Beta-lactam/penicillin results. 75-Mtf-001156:30 Urinalysis, Complete Comments: How was Urine Obtained? [facility]rine, [facility] [address]fxcoc[address] [place], [place], [address] MUCUS, URINE 0 SEEN {/hpf} (Normal) BACTERIA [...] CLARITY Sl. Cloudy (Normal) COLOR Yellow (Normal) 58-Ocb-605457:00 ENTERIC PATHOGEN PANEL STOOL Comments: [facility] [address] [place], [place], [address] EP PANEL See Note (Normal) Comments: RESULTS [...] DetectedVIBRIO Not DetectedNorovirus Not DetectedRotavirus Not Detected 85-Afc-098169:00 Stool Lactoferrin/WBC Comments: [facility] [address] [place], [place], [address] WBCST See Note (Normal) Comments: RESULTS CALLED TO DR. HOUSTON 09/10/15 @3 BY THADDEUS.Stool Lacto/WBCFecal WBC Lactoferrin Negative: No Fecal WBC Lactoferrin present 79-Lcw-564961:00 Stool Occult Blood iFOB Comments: [facility] [address] [place], [place], [address] STOB See Note (Normal) Comments: RESULTS CALLED TO DR. HOUSTON 09/10/15 @3 BY THADDEUS.STOB iFOBOccult Blood Negative 20-Jan-20161:29 CBC with auto diff Comments: PERFORMED BY: CB [facility] Xbqzeb3385 [facility] [id number] BY: [facility] [address] [id number] (92346) Immature Grans (Abs) 0.0 {x10E3/uL} (Normal) Range: [...] METABOLIC PANEL, Comments: PERFORMED BY: CB [facility] Gdubdo2278 [facility] [id number] BY: [facility] [address] [id number] [facility] ([address]137) ALT (SGPT) 17 [iU]/L (Normal) Range: 0-32 [...] 73 mg/dL (Normal) Range: 65-99 :29 CALCIFIDIOL (62592) VIT D Comments: PERFORMED BY: [employer] [facility] [id number] BY: Internet [address] [facility] [id number] 25 Vitamin D, 25-Hydroxy 39.5 ng/mL (Normal) Range: 30.0-100.0 Comments: Vitamin D deficiency has been defined by the [place] ofMedicine and an Endocrine Society practice guideline as alevel of serum 25-OH vitamin D less than 20 ng/mL (1,2).The Endocrine Society went on to further define vitamin Dinsufficiency as a level between 21 and 29 ng/mL (2).1. IOM (Masterson of Medicine). 2010. Dietary reference intakes for calcium and D. [place]: The National Academies Press.2. Gabbi MF, Singh MCKEON, Pollo JOSEPH, et al. Evaluation, treatment, and prevention of vitamin D deficiency: an Endocrine Society clinical practice guideline. JCEM. 2010; 96(7):1911-30. :29 TRILEPTAL-OXCARBAZEPINE [id number] Comments: PERFORMED BY: [facility] [place] [id number] BY: [facility] [address] [id number] ([address]661) Oxcarbazepine 38 ug/mL (Abnormal) Range: 10-35 Comments: Detection Limit = 1 53-Gpe-261860:30 CBC W/Diff, Automated Comments: [facility] [address] [place], [place], [address] Absolute Lymph 0.90 {X10_3/ul} (Normal) Range: 0.83-4.51 [...] 4.2-5.4 WBC 5.2 K/mm3 (Normal) Range: 4.4-11.0 06-Rwe-877081:30 Comprehensive Metabolic Profil Comments: [facility] [address]wh[address] [place], [address] GAP 8 (Normal) Range: 5-15 [...] 200 mg/dLsuggests DIABETES MELLITUS per A.D.A. criteria. 26-Dxc-790707:30 Lipid Profile Comments: [facility] [address] [place], [address] VLDL 38 mg/dL (Normal) Range: [...] 200-240 mg/dL Borderline >240 mg/dL High Risk 42-Xau-397111:30 Prealbumin Comments: [facility] [address] [place], [address] PREALBUMIN 26.0 mg/dL (Normal) Range: 20.0-40.0 43-Ope-546696:30 Thyroid Stim Hormone (TSH) Comments: [facility] [address] [place], [address] TSH 1.02 {uIU/mL} (Normal) Range: 0.358-3.74 25-Mpc-681971:30 Trileptal-Oxcarbazepine Comments: [facility] (refer to report for specific site)refer to report for address and phone number TRILEPT [id number] 38 ug/mL (Abnormal) Range: 10-35 Comments: Detection Limit = 1Performed at: [facility] [address] [id number] Director: Reji Gibson MD, Phone: [phone] 12-Drq-972800:30 Vitamin D,25 Hydroxy Comments: [facility] [address] [place], [address] Vitamin D 25-OH 38.4 ng/mL (Normal) Comments: Vitamin D 25(OH) Status Range Deficiency <20 ng/mL (50nmol/L) Insuffciency 20 - 30 ng/mL (50 - 75 nmol/L) Sufficiency 30 - 100 ng/mL (75 - 250 nmol/L) Toxicity >100 ng/mL (>250 nmol/L) 9-Had-432943:45 CBC-Complete Blood Cnt No Diff Comments: Test performed at:[facility] [address]feqyr[address] [place] [address] MPV 10.5 fL (Normal) Range: 6.2-12.0 [...] 4.2-5.4 WBC 6.3 K/mm3 (Normal) Range: 4.4-11.0 7-Dbp-630076:45 Comprehensive Metabolic Profil Comments: Is Patient Taking Vitamins or Folic Acid Supplements? NTest performed at:[facility] [address]rz[address]jdr[address] [place], [place] [address] GAP 7 (Normal) Range: 5-15 CO2 29.0 [...] Vitamins or Folic Acid Supplements? NTest performed at:[facility] [address] [place] [address] C-REACTIVE PROT < 2.90 mg/L (Normal) Range: 0.0-3.0 Comments: C-Reactive Protein (CRP) provides useful information for thediagnosis, therapy and monitoring of inflammatory processesand associated diseases. For the evaluation of Relative Riskfor Cardiovascular Dise ase, a High Sensitivity CRP (HSCRP)should be ordered. :45 Erythrocyte Sed Rate Comments: Test performed at:[facility] [address]vcxt[address] [place] [address] SED RATE 13 mm/h (Normal) Range: 0-20 :45 Folates, (Folic Acid) Comments: Is Patient Taking Vitamins or Folic Acid Supplements? NTest performed at:[facility] [address]ylwwx[address] [place] [address] FOLATES 15.70 ng/mL (Normal) Range: 3.1-17.5 :45 Free T3 Comments: Is Patient Taking Vitamins or Folic Acid Supplements? NTest performed at:[facility] [address] [place] [address] FREE T3 2.4 pg/mL (Normal) Range: 2.18-3.98 3-Nes-285133:45 Miscellaneous Lab Procedure Comments: Test(s) Ordered: OXCARBAZEPINE, LC#[id number], RED TOP SERUM/RFTest performed at:[facility] [address] [place] [address] MISC Comments: Oxcarbazepine (Trileptal), S Oxcarbazepine 35 ug/mL Ref: 35 Detection Limit=1 TESTING PERFOR MED AT [facility] (Normal) rp. ORIGINAL REPORT ON FILE IN LAB CONTAINS ADDITIONAL TEST SITE INFORMATION. TEST :45 Prealbumin Comments: Is Patient Taking Vitamins or Folic Acid Supplements? NTest performed at:[facility] [address] [place] [address] PREALBUMIN 30.9 mg/dL (Normal) Range: 20.0-40.0 :45 ,Serum,hCG Quali. Comments: Test performed at:[facility] [address] [place] [address] HCGSQUAL NEGATIVE {Negative} (Normal) Range: 0-9 Nonpreg HCG Qual triggr < 1 m[iU]/mL (Normal) :45 Prolactin Comments: Is Patient Taking Vitamins or Folic Acid Supplements? NTest performed at:[facility] Y[address]gojos[address] [facility] [place] [place] [address] PROLACTIN 9.5 ng/mL (Normal) Comments: NORMAL REFERENCE RANGES FEMALE NON- 2.2 - 30.3 ng/mL 8.1 - 347.6 ng/mL POST-MENOPAUSAL 0.7 - 3 1.5 ng/mL MALE 2.5 - 17.4 ng/mLNEW TEST METHOD AND REFERENCE RANGES FEBRUARY 01, 2012:45 T4 Free Direct Comments: Is Patient Taking Vitamins or Folic Acid Supplements? NTest performed at:[facility] Hqgswxlvqp8583 [place] [address] T4 FREE DIRECT 0.74 ng/dL (Abnormal) Range: 0.76-1.46 9-Vty-691977:45 Thyroid Stim Hormone (TSH) Comments: Is Patient Taking Vitamins or Folic Acid Supplements? NTest performed at:[facility] [address] [place] [address] TSH 1.39 {uIU/mL} (Normal) Range: 0.358-3.74 7-Zch-266703:45 Urinalysis, Routine (Dipstick) Comments: How was Urine Obtained? Urine, RandomTest performed at:[facility] [address]mzw[address] [place] [address] LEUK ESTERASE 500 /ul (Abnormal) OCCULT BLOOD-UR Negative /ul (Normal) NITRITE UR Negative (Normal) UROBILI Normal mg/dL (Normal) PROT DIPSTX Negative mg/dL (Normal) pH UR 8.0 (Normal) Range: 5.0 - 8.0 SP.GR. DIPSTX 1.010 (Normal) Range: 1.002-1.030 KETONE UR Negative mg/dL (Normal) BILIRUBIN URINE Negative mg/dL (Normal) GLUCOSE, UR Normal mg/dL (Normal) CLARITY Sl. Cloudy (Normal) COLOR Yellow (Normal) 5-Ylx-338553:45 Vitamin B12 1089 pg/mL (Abnormal) Comments: Test performed at:[facility] [address] [place] [address] Range: 211-911 7-Hsv-020788:45 Vitamin D,25 Hydroxy Comments: Test performed at:[facility] [address]azsc[address] [place] [address] Vitamin D 25-OH 23.9 ng/mL (Normal) Comments: Vitamin D 25(OH) Status Range Deficiency <20 ng/mL (50nmol/L) Insuffciency 20 - 30 ng/mL (50 - 75 nmol/L) Sufficiency 30 - 100 ng/mL (75 - 250 nmol/L) Toxicity >100 ng/mL (>250 nmol/L) 24-Wes-242305:43 ALBUMIN SERUM (03833) Comments: PATIENT NOT FASTINGPERFORMED BY: [facility], Old BridgeSskpsx9072 [facility] [id number] Albumin, Serum 4.7 g/dL (Normal) Range: 3.5-5.5 86-Tgm-582226:43 PREALBUMIN (00250) Comments: PATIENT NOT FASTINGPERFORMED BY: [facility]rqbu0805 [facility] [place] [id number] Prealbumin 29 mg/dL (Normal) Range: 20-40 06-Mbd-195758:21 ANJELICA CULTURE-OTHER (46760) Comments: PATIENT NOT FASTINGPERFORMED BY: [facility] Xespqz3053 [facility] [id number] Information: SRC:THRT [id number] Result 1 RRF (Normal) Comments: Routine respiratory jasper Upper Respiratory Culture Final report (Normal) 88-Tdq-376850:43 PROLACTIN (91573) Comments: PATIENT NOT FASTINGPERFORMED BY: [facility] Bibqyk4652 [facility] [id number] Prolactin 13.8 ng/mL (Normal) Range: 4.8-23.3 19-Hgs-530486:43 T3, FREE (TRIDOTHYRONINE) (79618) Comments: PATIENT NOT FASTINGPERFORMED BY: [facility] Ingbza6929 [facility] [id number] Triiodothyronine,Free,Serum 3.3 pg/mL (Normal) Range: 2.0-4.4 06-Kni-499017:43 T4, FREE (THYROXINE) (99525) Comments: PATIENT NOT FASTINGPERFORMED BY: [facility] Ngkqvs9999 [facility] [id number] T4,Free(Direct) 1.14 ng/dL (Normal) Range: 0.82-1.77 97-Bbx-341676:43 TSH (55476) Comments: PATIENT NOT FASTINGPERFORMED BY: [facility] Cfuxaf6318 [facility] [id number] Information: 184238,L75615 TSH 1.580 {uIU/mL} (Normal) Range: 0.450-4.500 27-Sbi-944171:00 CBCD ANC 1.8 {X10_3/uL} (Abnormal) Range: 2.0-7.7 [...] CDIFF See Note (Normal) Comments: FAXED TO VO3.573 C. Diff DNA Positive-Toxigenic C. Difficile DNA [...] spora, or Mi crosporidia. TESTING PERFORMED AT [facility]. ORIGINAL REPORT ON FILE IN [...] Detected :55 Oxcarbazepine (Trileptal),S Comments: PERFORMED BY: [facility] [employer] At[address] [id number] BY: [address] [id number] Oxcarbazepine 32 ug/mL (Normal) Range: 10-35 Comments: Detection Limit = 1 :55 CALCIFIDIOL (50385) VIT D Comments: PERFORMED BY: [employer] [facility] [id number] BY: [address] [id number] 25 Vitamin D, 25-Hydroxy 27.4 ng/mL (Abnormal) Range: 30.0-100.0 Comments: Vitamin D deficiency has been defined by the [place] ofMedicine and an Endocrine Society practice guideline as alevel of serum 25-OH vitamin D less than 20 ng/mL (1,2).The Endocrine Society went on to further define vitamin Dinsufficiency as a level between 21 and 29 ng/mL (2).1. IOM (Masterson of Medicine). 2010. Dietary reference intakes for calcium and D. [place]: The National Academies Press.2. Gabbi MF, Singh MCKEON, Pollo JOSEPH, et al. Evaluation, treatment, and prevention of vitamin D deficiency: an Endocrine Society clinical practice guideline. JCEM. 2010; 96(7):1911-30. 2-Dyh-064391:55 Folate (43903) Comments: PERFORMED BY: [employer] Yyeyez8641 [facility] [id number] BY: [address] [id number] Folate (Folic Acid), Serum 16.3 ng/mL (Normal) Comments: A serum folate concentration of less than 3.1 ng/mL isconsidered to represent clinical deficiency. 0-Yrw-292503:55 VITAMIN B-12 (CYANOCOBALAMIN) Comments: PERFORMED BY: [employer] Fgahdv9498 [facility] [id number] BY: [address] [id number] (05149) Vitamin B12 889 pg/mL (Normal) Range: 211-946 6-Pic-827577:55 TSH (94236) Comments: PERFORMED BY: [employer] Forwnn9941 [facility] [id number] BY: [address] [id number] TSH 1.670 {uIU/mL} (Normal) Range: 0.450-4.500 :55 SED RATE ERYTHROCYTE Comments: PERFORMED BY: [employer] Uvysxy0300 [facility] [id number] BY: [address] [id number] (78263) Sedimentation Rate-Westergren 6 mm/h (Normal) Range: 0-32 5-Iuv-198009:55 METABOLIC PANEL, Comments: PERFORMED BY: [employer] Uigdgi5812 [facility] [id number] BY: [address] [id number] COMPREHENSIVE (20742) ALT (SGPT) 11 [iU]/L (Normal) Range: 0-32 [...] cells when received.This may adversely affect serumChemistries. 3-Wyj-841421:55 C-REACTIVE PROTEIN (78673) Comments: PERFORMED BY: [employer] [id number] BY: [address] [id number] C-Reactive Protein, Quant 0.9 mg/L (Normal) Range: 0.0-4.9 :55 CBC (AUTO) (05268) Comments: PERFORMED BY: [employer] [facility] [id number] BY: [address] [id number] Platelets 213 {x10E3/uL} (Normal) Range: 140-415 Comments: [...] of these values in the reference population. 2-Aia-175852:29 ANJELICA CULTURE-OTHER (38203) Comments: PATIENT NOT FASTINGPERFORMED BY: [facility]6370 [facility] [id number] Information: SRC:THRPili [id number] Result 1 RRF (Normal) Comments: Routine respiratory jasper Upper Respiratory Culture Final report (Normal) 7-Lif-456201:03 Rapid Strep Test, Office (46429) Rapid Strep Test, Negative (Normal) Office 52-Uyg-150264:55 CDIF See Note (Normal) Comments: A positive [...] in these cases. C. DIFF ANTIGENS POSITIVE 45-Nfl-650557:30 CDIF See Note (Normal) Comments: RESULTS CALLED [...] these cases. C. DIFF ANTIGENS NEGATIVE :55 [facility] Culture exhibits no growth. (Normal) :55 [...] Comments: C. DIFF ANTIGENS NEGATIVE :2 TRILEPT 905990 20 ug/mL (Normal) Range: 10-35 4 Comments: Detection Limit = 1Performed at: [facility] [id number] Director: Reji Gibson MD, Phone: [phone] 16-Rmw-672361:1 C DIF TOXIN/AG See Note (Normal) Comments: RESULTS CALLED TO 06/23/112004 VONDA ELAM.REPORT READ BACK BY SAME . * This is an amended result. * A 5 prior result that was reported as final has been changed.06/23/112004 by IESHAPreviously reported as: C. DIFF ANTIGENS POSITIVE 19-Bfj-335371:46 COMP METABOLIC GAP 11 (Normal) Range: 5-15 [...] amount of Staphylococcus aureusor yeast-like organisms isolated. 76-Fhy-55140:00 C DIF TOXIN/AG See Note (Normal) Comments: [...] Cyclospora, or Microspo ridia. TESTING PERFORMED AT [facility]. ORIGINAL REPORT ON FILE IN LAB CONTAINS ADDITIONAL TEST SITE INFORMATION. OVA/ PARASITES EXAM NO OVA, CYSTS, OR PARASITES FOUND. :21 WBC,STOOL See Note (Normal) Comments: RESULTS CALLED TO OFFICE TO ALEXSANDRA07/17/10 115KRISTIAN DAWSON.REPORT READ BACK BY SAME . Comments: FECAL WBCs NONE SEEN 92-Rxv-86974:20 C DIF TOXIN/AG See Note (Normal) Comments: [...] Cyclospora, or Microspo ridia. TESTING PERFORMED AT [facility]. ORIGINAL REPORT ON FILE IN LAB CONTAINS ADDITIONAL TEST SITE INFORMATION. OVA/ PARASITES EXAM NO OVA, CYSTS, OR PARASITES FOUND. :20 WBC,STOOL See Note (Normal) Comments: FECAL WBCs NONE SEEN 66-Wvu-607356:14 C DIF TOXIN See Note (Normal) 99-Nvy-500309:44 O AND P See Note (Normal) Comments: OVA AND PARASITES EXAM, ROUTINE These results were obtained using wet preparation(s) and trichrome stained smear. This test does not include testing for Crytosporidium parvum, Cyclospora, or Microspo ridia. TESTING PERFORMED AT [facility]. ORIGINAL REPORT ON FILE IN LAB [...] Cyclospora, or Microspo ridia. TESTING PERFORMED AT [facility]. ORIGINAL REPORT ON FILE IN [...] diabetes mellitus, well controlled Convulsions : Reviewed Cafeteria Or Lunchroom Checker Letter Indication: Convulsions Neuromuscular scoliosis : Follow [...] Cystitis, acute Planned Observations URINE ANJELICA CULTURE-IDENTIFICATN ([id number])Indication: Abnormal urine On: 9-Kgu-474570:25 Request MRSA Culture ([id number])Indication: Thick sputum On: 6-Tws-860704:32 Request Anaerobic & Aerobic Culture ([id number])Indication: Thick sputum On: 27-Wpi-752398:46 Request Comments: collected from trachea stoma Anaerobic & Aerobic Culture ([id number])Indication: Cellulitis of groin, right On: 1-Xlm-132471:44 Request TRILEPTAL-OXCARBAZEPINE [id number] ([id number])Indication: Diarrhea On: 4-Hcc-016002:24 Request VITAMIN B12 AND FOLATES (04621)Indication: Diarrhea On: 7-Beg-759685:24 Request CALCIFEDIOL (51453)Indication: Diarrhea On: 3-Typ-462736:24 Request CALCIFEDIOL (91929)Indication: Diarrhea On: 6-Xfa-983263:23 Request TSH (THYROID STIMULATING HORMONE) ([id number])Indication: Diarrhea On: : Request METABOLIC PANEL, COMPREHENSIVE (85993)Indication: Diarrhea On: : Request CBC, PLATELETS & AUT DIFF (74706)Indication: Diarrhea On: : Request OVA & PARASITE DIR SMEAR (61894)Indication: Diarrhea On: :46 Request ANJELICA CULTURE-STOOL (69413)Indication: Diarrhea On: :46 Request OCCULT BLOOD FECES SCREEN (97185)Indication: Diarrhea On: :46 Request LEUKOCYTE COUNT, FECAL (30205)Indication: Diarrhea On: :46 Request C-DIFFICILE, STOOL (26213)Indication: Diarrhea On: :46 Request OVA & PARASITE DIR SMEAR (69790)Indication: C. difficile diarrhea On: :50 Request OCCULT BLOOD FECES SCREEN ([id number])Indication: C. difficile diarrhea On: :50 Request ANJELICA CULTURE-STOOL (53195)Indication: C. difficile diarrhea On: :50 Request LEUKOCYTE COUNT, FECAL (55632)Indication: C. difficile diarrhea On: :50 Request C-DIFFICILE, STOOL (94423)Indication: C. difficile diarrhea On: :49 Request Clostridium difficile Culture (01768)Indication: Diarrhea On: 8-Irj-792247:52 Request URINALYSIS, W/ MICRO (77073)Indication: Dysuria On: :56 Request URINE ANJELICA CULTURE-SISSY COL COUNT (98221)Indication: Dysuria On: :54 Request OCCULT BLOOD FECES SCREEN (52820)Indication: Diarrhea On: :01 Request LEUKOCYTE COUNT, FECAL (60387)Indication: Diarrhea On: :05 Request ANJELICA CULTURE-STOOL (40687)Indication: Diarrhea On: :05 Request Clostridium difficile Toxin A+B, EIA (15802)Indication: Diarrhea On: :05 Request TRILEPTAL-OXCARBAZEPINE [id number] (93733)Indication: Convulsions On: 23-Jll-840992:55 Request PREALBUMIN (51544)Indication: Nutritional assessment On: :45 Request CALCIFIDIOL (70258) VIT D 25Indication: Vitamin D deficiency On: :44 Request TSH (15421)Indication: Hypertension On: :44 Request METABOLIC PANEL, COMPREHENSIVE (77190)Indication: Hypertension On: :44 Request LIPID PANEL (58166)Indication: Hypertension On: :44 Request CBC with auto diff (96904)Indication: Hypertension On: :44 Request Metabolic Panel, Basic (21717)Indication: Abnormal urine On: :03 Request VITAMIN B12 AND FOLATES (09485)Indication: Abnormal urine On: :03 Request CALCIFEDIOL (62949)Indication: Abnormal urine On: :03 Request Comments: vit d3 URINE ANJELICA CULTURE-SISSY COL COUNT (05956)Indication: Abnormal urine On: 6-Gqy-632089:52 Request TRILEPTAL-OXCARBAZEPINE [id number] (05715)Indication: Cerebral palsy On: 39-Ccg-995080:46 Request HCG Qualitative, Serum (16646)Indication: Amenorrhea On: 19-Mun-735224:45 Request PROLACTIN (78817)Indication: Amenorrhea On: 81-Ztn-151247:44 Request PREALBUMIN (50439)Indication: Cerebral palsy On: 07-Ftm-298063:43 Request URINALYSIS (92528)Indication: Fatigue On: 88-Sni-842288:43 Request T3, FREE (TRIDOTHYRONINE) (48283)Indication: Fatigue On: :43 Request T4, FREE (THYROXINE) (72853)Indication: Fatigue On: :43 Request Folate (05882)Indication: Fatigue On: 52-Wsg-311206:42 Request CALCIFIDIOL (46480) VIT D 25Indication: Fatigue On: :42 Request VITAMIN B-12 (CYANOCOBALAMIN) (79725)Indication: Fatigue On: 73-Kog-169453:42 Request TSH (93596)Indication: Fatigue On: :42 Request SED RATE ERYTHROCYTE (06632)Indication: Fatigue On: :42 Request METABOLIC PANEL, COMPREHENSIVE (40908)Indication: Fatigue On: :42 Request C-REACTIVE PROTEIN (73185)Indication: Fatigue On: :42 Request CBC (AUTO) (29261)Indication: Fatigue On: :42 Request CULTURE,BODY FLUID (56051)Indication: Irregular Menstrual Cycle (Renamed from Irregular bleeding) On: 47-Fgh-318696:07 Request Comments: urine Rapid Strep Test, Office (83826)Indication: Pharyngitis, acute On: 22-Qtp-148346:51 Request Urinalysis, Office (71835)Indication: Fatigue On: 32-Lfe-818112:49 Request HgA1C , Office (13689)Indication: Hyperglycemia On: :41 Request CALCIFIDIOL (39886) VIT D 25Indication: Vitamin D deficiency On: 46-Ner-139225:32 Request TRILEPTAL-OXCARBAZEPINE 237820 (68006)Indication: Convulsions On: :31 Request Metabolic Panel, Comprehensive (27185)Indication: Acute renal failure On: :31 Request CBC with manual diff (90010)Indication: Hypertension On: :31 Request CBC with manual diff (53722)Indication: Thrombocytopenia, unspecified On: :35 Request Comments: in citrate tube FIBRINOGEN (51121)Indication: Thrombocytopenia, unspecified On: :35 Request PTT (Activated Partial Thromboplastin Time) (72901)Indication: Thrombocytopenia, unspecified On: :35 Request PT (Prothrobim Time) (56967)Indication: Thrombocytopenia, unspecified On: :35 Request HEPATITIS C ANTIBODY ([id number])Indication: Thrombocytopenia, unspecified On: :35 Request HEPATITIS B CORE ANTBD-IGG/IGM (39636)Indication: Thrombocytopenia, unspecified On: :35 Request HEPATITIS B SURFACE ANTIGEN (11085)Indication: Thrombocytopenia, unspecified On: :35 Request HEPATITIS B SURFACE ANTIBODY (63133)Indication: Thrombocytopenia, unspecified On: :35 Request Methylmalonic acid, serum 46152Gbozwwogjq: Thrombocytopenia, unspecified On: :35 Request Vitamin B-12 (cyanocobalamin) (51368)Indication: Thrombocytopenia, unspecified On: :35 Request Sed Rate Erythrocyte (00128)Indication: Thrombocytopenia, unspecified On: :35 Request Metabolic Panel, Comprehensive (84005)Indication: Thrombocytopenia, unspecified On: :35 Request JENNY (ANTINUCLEAR ANTIBODY) (28536)Indication: Thrombocytopenia, unspecified On: : Request CBC with manual diff (91590)Indication: Convulsions On: 02-Wsk-021851:31 Request Clostridium difficile Toxin A+B, EIA (21820)Indication: Diarrhea On: :31 Request OVA & PARASITE DIR SMEAR (75031)Indication: Diarrhea On: :44 Request OCCULT BLOOD FECES SCREEN (83281)Indication: Diarrhea On: :44 Request LEUKOCYTE COUNT, FECAL (99604)Indication: Diarrhea On: :44 Request ANJELICA CULTURE-STOOL ([id number])Indication: Diarrhea On: :44 Request Clostridium difficile Toxin A+B, EIA (16273)Indication: Diarrhea On: 29-Kms-384308:22 Request C DIFF AMPLIFIED PROBE (97629)Indication: Diarrhea On: 73-Cqs-45081:51 Request Metabolic Panel, Comprehensive (56676)Indication: Acute renal failure On: :08 Request Comments: recheck prior to August. CALCIFIDIOL (24586) VIT D 25Indication: Vitamin D deficiency On: : Request Comments: recheck prior to August. TRILEPTAL-OXCARBAZEPINE 734019 (90705)Indication: Convulsions On: :08 Request Culture, Stool (71665)Indication: Diarrhea On: :01 Request C DIFF AMPLIFIED PROBE (29644)Indication: Diarrhea On: 36-Ewn-891185:01 Request C DIFF AMPLIFIED PROBE (55594)Indication: Diarrhea On: 86-Pzn-870617:32 Request C DIFF AMPLIFIED PROBE (05885)Indication: Diarrhea On: 68-Fda-537626:51 Request URINE ANJELICA CULTURE-IDENTIFICATN (97297)Indication: Backache On: :58 Request URINALYSIS (70905)Indication: Backache On: 6-Xrl-574752:58 Request Metabolic Panel, Comprehensive (63950)Indication: Profound mental retardation (Renamed from IQ under 20) On: 8-Feq-758020:25 Request Comments: Dr Pino neurologist at [facility] CBC (Auto) ([id number])Indication: Profound mental retardation (Renamed from IQ under 20) On: 1-Yjd-163232:25 Request TRILEPTAL-OXCARBAZEPINE [id number] (05078)Indication: Cerebral palsy On: 1-Nuw-566445:24 Request COLUMN CHROMATOGRAPHY, SISSY, SINGLE (12061)Indication: Convulsions On: 28-Xad-241149:54 Request Comments: trileptal [id number] Clostridium difficile Toxin A+B, EIA (02491)Indication: Diarrhea On: 16-Sqg-057432:26 Request CBC (Auto) (27729)Indication: Convulsions On: 23-Xxy-119310:25 Request Metabolic Panel, Comprehensive (89387)Indication: Convulsions On: 60-Jui-118081:24 Request ANJELICA CULTURE-OTHER (10801)Indication: Pharyngitis, acute On: 9-Mfj-776469:44 Request C.Difficile, Stool (46197)Indication: Diarrhea On: 75-Vve-786550:48 Request ANJELICA CULTURE-STOOL (89334)Indication: Diarrhea On: :55 Request C.Difficile, Stool (05144)Indication: Diarrhea On: :54 Request LEUKOCYTE COUNT, FECAL (02527)Indication: Diarrhea On: 06-Drv-281622:27 Request OVA & PARASITE DIR SMEAR (66793)Indication: Diarrhea On: :27 Request C.Difficile, Stool (67299)Indication: Diarrhea On: 38-Dwd-017923:27 Request ANJELICA CULTURE-STOOL (25653)Indication: Diarrhea On: 33-Igz-130777:27 Request TSH (49628)Indication: Unspecified bacterial pneumonia On: :48 Request CBC, Platelets & Auto Diff (09672)Indication: Unspecified bacterial pneumonia On: :48 Request Magnesium (64546)Indication: Unspecified bacterial pneumonia On: :48 Request Phosphorus (89076)Indication: Unspecified bacterial pneumonia On: :48 Request Metabolic Panel, Basic (53434)Indication: Unspecified bacterial pneumonia On: :48 Request Planned Encounters Medical; 4 Month FU - On: 10-Oct-2018 13:15 [facility] Sandra Bermudez DO, DO, Kathleen Planned Procedures Flu Vaccine (Quadrivalent) On: 06-Jun-2018 Intent 35118Xl: Sandra Bermudez DO Comments: Lot #[id number]-L dltd, IMDose prefilled syringegiven by:MARICARMEN Santana reviewed and ABN signed Sandra Bermudez DO Flu Vaccine (Quadrivalent) On: 02-Aug-2017 Intent 18080Yc: Sandra Bermudez DO Comments: Lot:[id number]:12/29Amt:0.5mlRoute:IMSite: Rt DltdGiven By: ALFREDITO James signed Sandra Bermudez DO Flu Vaccine (Quadrivalent) On: 14-May-2016 Intent 38570Zi: Roe Baxter MD Comments: Lot #[id number]-L dltd, IMDose prefilled syringegiven by:ALFREDITO Goldberg and ABN signed ADMINISTRATION OF INFLUENZA On: 02-Aug-2015 Intent VIRUS VACCINE (G0008)By: Lidna Houston MD Flu Vaccine (Quadrivalent) On: 02-Aug-2015 Intent 93511Po: Linda Houston MD Comments: Lot #:[id number] date:Amount given:0.5mlRoute: IMSite given:L DltdGiven by: Jessica BASSETT and ABN signed Quad Flu ELECTROCARDIOGRAM, COMPLETE On: 21-Mar-2015 Intent (ECG) (24001)By: Linda Houston MD CT - Brain/Head (IV Contrast On: 29-Nov-2014 Intent Needed)By: Linda Houston MD ADMINISTRATION OF INFLUENZA On: 06-Aug-2014 Intent VIRUS VACCINE (G0008)By: TIMBO Villegas Flu Vaccine (Quadrivalent) On: 06-Aug-2014 Intent 47989Fn: TIMBO Villegas Comments: Lot #:[id number] date:mount given:0.5mlRoute: IM Site given:Given by: to be given per patient home health nurse CATHETERIZE FOR URINE SPEC On: 09-Mar-2014 Intent (P9612)By: Linda Houston MD Comments: pls use pediatric cath- and fax results to [phone] SPECIMEN HNDLNG/TRNSPRT, OFFC > On: 09-Mar-2014 Intent LAB (61446)By: Linda Houston MD IMMUNIZ ADMNIN, 1 VAC, On: 28-Jul-2013 Intent SNGL/COMBO (35604)By: Archie BOLDEN, Comments: Lot #[id number] to nurse for admin Jessica Stack FLU VAC, SPLIT, >3 YEARS, On: 28-Jul-2013 Intent INTRAMUSC (31926)By: Jessica Almanza LPN L SPECIMEN HNDLNG/TRNSPRT, OFFC > On: 18-May-2013 Intent LAB (69223)By: Lnida Houston MD Eprescribed prescriptions On: 18-May-2013 Intent (G8553)By: Jessica Almanza LPN FLU VAC, SPLIT, >3 YEARS, On: 23-Jun-2011 Intent INTRAMUSC (26023)By: Archie BOLDEN, Comments: Lot #[id number]-L arm, IMDose prefilledgiven by:Jessica Stack IMMUNIZ ADMNIN, 1 VAC, On: 23-Jun-2011 Intent SNGL/COMBO (62991)By: Jessica Almanza LPN Instructions Name Dates Details [...] for the procedure will be Dr Beck [facility]. The chief complaint is teeth cleanin [...]
--- OUTSIDE RECORDS SUMMARY | 2018-10-08 11:33 | XMS RPT_ITS | Continuity of Care Document ---
:1990 Author Organization [facility] Address [address] [place] [address] Phone Care Team Providers Name Role Phone [...] Propionate 50 MCG/ACT Nasal Suspension 2 (two) [place](s) [place](s) each nostril qd for 90 days Quantity: [...] Houston MD Start : 20-Jan-2016 Active Nyamyc 716144 UNIT/GM External Powder uad Powder to affected area(s) bid and prn for 0 days Quantity: 15 {Bottle} Refills: 6 Ordered:19-Nov-2017 Karin Bermudez DO, DO, Kathleen Start : 19-Nov-2017 End : 17-Nov-2013 Active Nystatin 943752 UNIT/GM External Cream uad Cream to affected area(s) bid prn for 7 days Quantity: 1 {Bottle} Refills: 3 Ordered:03-Jun-2018 Karin Bermudez DO, DO, Kathleen Start : 03-Jun-2018 Active Nystatin 922951 UNIT/ML Mouth/Throat Suspension 5 ml ml 5 times day for 10 days Quantity: 250 {Milliliter} Refills: 9 Ordered:03-Apr-2016 Jessica Almanza LPN L Start : 03-Apr-2016 Active Nystatin Powder 1 Powder Powder tid for 10 days Quantity: 1 {Bottle} Refills: 3 Ordered:28-Jun-2017 Karin Bermudez DO, DO, Kathleen Start : 28-Jun-2017 Active [place] 31G X 5 MM Miscellaneous 1 (one) [...] {Milliliter} Refills: 5 Ordered:30-Mar-2018 Karin Bermudez DO, DO Sandra Start : 30-Mar-2018 Active VITAMIN D3, 1000UNIT (Oral Tablet) 1 Tablet Tablet qd for 0 days Quantity: 30 {Tablet} Refills: 6 Ordered:21-Mar-2015 Long SPA THERAPIST, Jessica L Start : 22-May-2013 Active Xopenex 1.25 MG/3ML Inhalation Nebulization Solution 3 ml plus 6-12 ml NS Nebulized Soln tid via IPV macine) for 0 days Quantity: 2 {Box} Refills: 6 Ordered:02-May-2018 LaraKarin meyer DO, DO Sandra Start : 02-May-2018 Active Comments:has tried [...] for 0 days Refills: 0 Ordered:23-Jun-2011 Long SPA THERAPIST, Jessica L End : 23-Jun-2011 Inactive LevoFLOXacin [...] for 0 days Refills: 0 Ordered:23-Jun-2011 Long SPA THERAPIST, Jessica L End : 23-Jun-2011 Inactive MUCINEX FOR KIDS, 100MG/5ML (Oral Liquid) Liquid 15 cc tid 14 days for 0 days Refills: 0 Ordered:23-Jun-2011 Long SPA THERAPIST, Jessica L Start : 13-Jun-2009 End : [...] Quantity: 30 {Packet} Refills: 2 Ordered:15-May-2016 Long SPA THERAPIST, Jessica L Start : 14-May-2016 End : [...] 1 {Box} Refills: 5 Ordered:10-Jun-2018 Daisy Pineda KIMI Start : 08-Jun-2018 End : 10-Jun-2018 [...] nostril qd for 0 days Quantity: 1 {[place]} Refills: 3 Ordered:09-Apr-2015 Linda Houston MD Start : 09-Apr-2015 End : 20-Jan-2016 Discontinued Comments:This order discontinued per [employer]. MUCOMYST, 20% (Inhalation Solution) 1 bid/prn for 0 days Refills: 0 Ordered:23-Jun-2011 Long SPA THERAPIST, Jessica L End : 23-Jun-2011 Discontinued Comments:This order discontinued per [employer]. VYTONE, 1-1% (External Cream) Cream bid for 0 days Quantity: 1 {Cream} Refills: 3 Ordered:13-Jun-2009 Long SPA THERAPIST, Jessica L Start : 13-Jun-2009 End : [...] Result: Comments: See Note; NOTES: [facility] Medicine [address] [place] [address] OFFICE VISIT Date of Service: 05/25/18 MR#: [id number] Acct: [id number] Name: MANDY MONTERO Rep #: [id number] : 1990 Provider: Lawrence Weiner MD Age/Sex: 28/F Location: [facility].PMW Status: Signed Assessment AND Plan Problems 1. [...] policy were reviewed and mother reported bin g. Will continue with current aerosol therapies. Patient [...] Department Summary Result: Comments: See Note; NOTES: [facility] Medical Records Department [address] [place] [address] Emergency Department Summary 01/24/18 1645 MR#: [id number] Acct: [id number] Name: MANDY MONTERO Rep #: [id number] : 1990 27 From: Stephan Hughes MD [...] home Impression: 1. Cellulitis left [facility] 2. Dysuria of unknown etiology 3. History of MRDD 4. History of Propulsid 5. History of chronic respiratory failure on ventilator This note was generated with MedTel24 dictation software. It m ay contain incorrect [...] Instructions: Mandy prescription was electronically transmitted to [place] [facility], [facility] What to do if you have Problems For any increased pain, shortness of breath, bleeding, nausea or vomiting, chest pain, or any unexpected problems, contact your Primary Care Provider. Call [facility] ([phone]) or report to the closest Emergency Room. Call 911 if necessary. 01/24/18 4235 <Electronically signed by Stephan Hughes MD> Date Stephan Hughes MD Cosigner Signature (If Indicated): Date CC: Sandra Bermudez DO 10-Dec-2017 Pulmonary Visit Report Result: Comments: See Note; NOTES: [facility] [place] [address] [place] [address] OFFICE VISIT Date of Service: 12/09/17 MR#: [id number] Acct: [id number] Name: MANDY MONTERO Rep #: [id number] : 1990 Provider: Lawrence Weiner MD Age/Sex: 27/F Location: [facility].PMW Status: Signed Assessment AND Plan 1. Chronic [...] Comments: See Note; NOTES: [facility] [place] [address] [place] [address] OFFICE VISIT Date of Service: 09/02/17 MR#: [id number] Acct: [id number] Name: MANDY MONTERO Rep #: [id number] : 1990 Provider: Lawrence Weiner MD Age/Sex: 27/F Location: [facility].PMW Status: Signed Assessment AND Plan 1. Spastic [...] mg (10 mL) PO QDAY PRN allergy [id number] .2 Ok to give through PEG Follow [...] a cot with her mother and healthcare payroll human resources assistant. Family reports the patient has had [...] Department Summary Result: Comments: See Note; NOTES: [facility] Medical Records Department [address] [facility] [place] [address] Emergency Department Summary MR#: [id number] Acct: [id number] Name: MANDY MONTERO Rep #: [id number] : 1990 26 From: Flip Jessica MD PCP: Sandra Bermudez DO Status: [facility] ER DATE OF SERVICE: 03/06/2017 CHIEF [...] . Flip Jessica MD T: NTS JOB: [id number] 03/10/17805 <Electronically signed by Flip Jessica MD> Date Flip Jessica MD Cosigner Signat ure (If Indicated): Date CC: Sandra Bermudez DO Date Dictated: 03/06/171722 Date Transcribed: 03/06/171722 Track Repair Person: Signed 06-Mar-2017 Discharge Instruction Result: Comments: See Note; NOTES: [facility] Medical Records Department [address] [place] [address] Discharge Instruction 03/06/171719 MR#: [id number] Acct: [id number] Name: ROMELIA MONTERO Rep #: [id number] : 1990 From: Flip Jessica MD PCP: Sandra Bermudez [...] problems, contact your Primary Care Provider. Call [facility] ([phone]) or report to the closest Emergency Room. Call 911 if necessary. 03/06/17 1720 <Electronically signed by Flip Jessica MD> Date Flip Jessica MD Cosigner Signature (If Indicated): Date CC: Sandra Bermudez DO 06-Mar-2017 Chest 1 View Result: Comments: See Note; NOTES: [facility] Imaging Services [address] [place] [address] Verdana 4d Chest 1 View MR#: [id number] Acct: [id number] Name: MANDY MONTERO Rep #: [id number] : 1990 F 26 From: Merritt Bolton MD PCP: Sandra Bermudez DO Status: REG ER Study: Chest 1 View Date of Exam: 03/06/17 Exam# [id number] Ordering Dr: Flip Jessica MD STUDY: X-RAY [...] CC: Flip Jessica MD; Sandra Bermudez DO Track Repair Person: Signed 06-Mar-2017 Thoracic Spine 3 Views Result: Comments: See Note; NOTES: [facility] Imaging Services [address] [place] [address] Verdana 4d Thoracic Spine 3 Views MR#: [id number] Acct: [id number] Name: MANDY MONTERO Rep # : [id number] : 1990 F 26 From: Merritt Bolton MD PCP: Sandra Bermudez DO Status: REG ER Study: Thoracic Spine 3 Views Date of Exam: 03/06/17 Exam# [id number] Ordering Dr: Flip Jessica MD TERESA DY: [...] CC: Flip Jessica MD; Sandra Bermudez DO Track Repair Person: Signed 10-Sep-2016 Chest 1 View (Portable) Result: Comments: See Note; NOTES: [facility] Imaging Services [address] [place] [address] Verdana 4d Chest 1 View (Portable) MR#: [id number] Acct: [id number] Name: MIGUELZEFERINORickey Jefferson Rep #: [id number] : 1990 F 26 From: Mandy Chávez MD PCP: Sandra Bermudez DO Status: PRE ER Study: Chest 1 View (Portable) Date of Exam: 09/10/16 Exam# [id number] Ordering Dr: Vinnie Sher MD STUDY: X-RAY [...] MD at 23:49 EST , Service support [phone], CC: Linden Sher MD; Sandra Bermudez DO Track Repair Person: Signed 12-Mar-2016 Emergency Department Summary Result: Comments: See Note; NOTES: [facility] Medical Records Department [address] [place] [address] Emergency Department Summary MR#: [id number] Acct: [id number] Name: MANDY MONTERO Rep #: [id number] : 1990 25 From: Joseph Mcgee MD [...] Baxter Date Dictated: 02/29/16112 Date Transcribed: 02/29/16112 Track Repair Person: Signed 28-Feb-2016 Discharge Instruction Result: Comments: See Note; NOTES: [facility] Medical Records Department [address] [place] [address] Discharge Instruction 02/28/161925 MR#: [id number] Acct: [id number] Name: MANDY MONTERO Rep #: [id number] : 1990 From: Joseph Mcgee MD PCP: Roe Baxter [...] problems, contact your doctor. Call [facility] ([phone]) or report to the closest Emergency Room. Call 911 if necessary. 224 <Electronically signed by Joseph Mcgee MD> Date Joseph Mcgee MD Cosigner Signature (If Indicated): Date ___ CC: Roe Baxter 28-Feb-2016 Abdomen/Pelvis without Cont Result: Comments: See Note; NOTES: [facility] Imaging Services [address] [place] [address] Verdana 4d Abdomen/Pelvis without Cont MR#: [id number] Acct: [id number] Name: MANDY MONTERO Rep #: [id number] : 1990 F 25 From: Seymour Villagomez MD PCP: Roe Baxter Status: REG ER Study: Abdomen/Pelvis without Cont Date of Exam: 02/28/16 Exam# [id number] Ordering Dr: Joseph Patton MD STUDY: CT [...] MD at 18:47 EDT , Service support [phone], CC: Roe Baxter; Joseph Mcgee MD Track Repair Person: Signed 25-Feb-2016 Emergency Department Summary Result: Comments: See Note; NOTES: [facility] Medical Records Department [address] [place] [address] Emergency Department Summary MR#: [id number] Acct: [id number] Name: MANDY MONTERO Rep #: [id number] : 1990 25 From: Tomás Willis MD [...] C: Roe Baxter MD T: NTS JOB: [id number] 02/25/161516 <Electronically signed by Tomás Willis MD> Date Tomás Willis MD Cosigner Signature (If Indicated): Date CC: Roe Baxter Date Dictated: 02/23/161520 Date Transcribed: 02/23/161520 Track Repair Person: Signed 23-Feb-2016 Discharge Instruction Result: Comments: See Note; NOTES: [facility] Medical Records Department [address] [place] [address] Discharge Instruction 02/23/161513 MR#: [id number] Acct: [id number] Name: MANDY MONTERO Rep #: [id number] : 1990 From: Tomás Willis MD PCP: [...] problems, contact your doctor. Call [facility] ([phone]) or report to the closest Emergency Room. Call 911 if necessary. [phone] <Electronically signed by Tomás Willis MD> Date Tomás Lazaro MD Cosigner Signature (If Indicated): Date CC: Roe Baxter 28-Jan-2016 Chest 1 View (Portable) Result: Comments: See Note; NOTES: [facility] Imaging Services [address] [place] [address] Verdana 4d Chest 1 View (Portable) MR#: [id number] Acct: [id number] Name: MANDY ACUNA Rep #: [id number] : 1990 F 25 From: Abdirahman Awad MD PCP: Linda Houston MD Status: PRE ER Study: Chest 1 View (Portable) Date of Exam: 01/28/16 Exam# [id number] Ordering Dr: Edita Willis MD STUDY: X-RAY [...] MD at 22:53 EDT , Service support [phone], RAD/Chest 1 View (Portable) IMPRESSION: Retrocar diac density in left lower lobe possibly representing atelectasis or infiltrate. Recommend lateral view for further assessment Electronically Signed: Abdirahman Awad MD at 22:53 EDT , Service support [phone], CC: Linda Houston MD; Tomás Willis MD Track Repair Person: Signed Family History Unknown Family Member Name [...] lb :43 Comments: weight reported per home [facility] Temperature 97 f [...] Results Date Description Value Details :37 TSH (32096) Comments: PATIENT NOT FASTINGPERFORMED BY: [employer] [address] [place] [address] [id number] BY: [employer] [id number] TSH 1.030 {uIU/mL} (Normal) Range: 0.450-4.500 25-Tup-018061:37 T4, FREE (THYROXINE) Comments: PATIENT NOT FASTINGPERFORMED BY: [employer] Oqrebp0304 [facility] [id number] BY: [employer] [id number] (92580) T4,Free(Direct) 0.84 ng/dL (Normal) Range: 0.82-1.77 :37 T3, FREE (TRIDOTHYRONINE) Comments: PATIENT NOT FASTINGPERFORMED BY: [employer] Vqzawb8275 [facility] [id number] BY: [employer] [id number] (72027) Triiodothyronine (T3), Free 2.6 pg/mL (Normal) Range: 2.0-4.4 42-Hzs-093573:37 CALCIFIDIOL (24310) VIT D Comments: PATIENT NOT FASTINGPERFORMED BY: [facility] Ekisgr7128 [facility] [id number] BY: [address] [id number] 25 Vitamin D, 25-Hydroxy 42.6 ng/mL (Normal) Range: 30.0-100.0 Comments: Vitamin D deficiency has been defined by the [place] of[facility] and an Endocrine Society practice guideline as alevel of serum 25-OH vitamin D less than 20 ng/mL (1,2).The Endocrine Society went on to further define vitamin Dinsufficiency as a level between 21 and 29 ng/mL (2).1. IOM ([place] of Medicine). 2010. Dietary reference intakes for calcium and D. [place]: The National Academies Press.2. Gabbi MF, Singh NC, Pollo JOSEPH, et al. Evaluation, treatment, and prevention of vitamin D deficiency: an Endocrine Society clinical practice guideline. JCEM. 2010; 96(7):1911-30. 14-Fbt-626643:37 TRILEPTAL-OXCARBAZEPINE 498228 Comments: send results to dr delgado too; PATIENT NOT FASTINGPERFORMED BY: [employer] Szvprr2419 [facility] [id number] BY: [address] [id number] (98708) Oxcarbazepine 49 ug/mL (Abnormal) Range: 10-35 Comments: Detection Limit = 1 25-Hfy-616372:37 CBC with auto diff Comments: send results to dr delgado too; PATIENT NOT FASTINGPERFORMED BY: [facility] Nitlys5090 [facility] [id number] BY: [address] [id number] (92276) Immature Grans (Abs) 0.0 {x10E3/uL} (Normal) Range: [...] 3.77-5.28 WBC 6.3 {x10E3/uL} (Normal) Range: 3.4-10.8 45-Dmf-387504:37 METABOLIC PANEL, Comments: send results to dr delgado too; PATIENT NOT FASTINGPERFORMED BY: CB [facility] Nvprct3762 [facility] [id number] BY: BN [facility] [address] [id number] [facility] ([address]) ALT (SGPT) 38 [iU]/L (Abnormal) Range: 0-32 [...] 6-20 Glucose 237 mg/dL (Abnormal) Range: 65-99 94-Mhm-182544:37 HGB A1C (66819) Comments: PATIENT NOT FASTINGPERFORMED BY: CB [facility] Xtpkyd5734 [facility] [id number] BY: BN [facility] [address] [id number] Hemoglobin A1c 6.3 % (Abnormal) Range: 4.8-5.6 Comments: . Prediabetes: 5.7 - 6.4 Diabetes: >6.4 Glycemic control for adults with diabetes: <7.0 85-Uze-862699:00 Urinalysis, Complete Comments: How was Urine Obtained? [facility] [address] [place], [address] MUCUS, URINE 0 SEEN {/hpf} (Normal) BACTERIA [...] (Abnormal) CLARITY Clear (Normal) COLOR Yellow (Normal) 58-Phx-580146:50 Basic Metabolic Profile (BMP) Comments: [facility] [address] [place], [address] GAP 8 (Normal) Range: 5-15 CO2 28.0 [...] A.D.A. criteria.Please note revised GLUCOSE reference range yeemukmeq84/02/2018. 59-Qzq-068014:50 CBC W/Diff, Automated Comments: [facility] [address] [place], [address] Absolute Lymph 1.52 {X10_3/ul} (Normal) [...] 4.2-5.4 WBC 6.0 K/mm3 (Normal) Range: 4.4-11.0 63-Yje-78344:00 Lactic Acid Comments: Yes/No query for Sepsis Lactate Rule [facility] [address] [place], [address] LACTIC ACID 2.0 mmol/L (Normal) Range: 0.4-2.0 Comments: Critical Result(s) Called at: 18:33:30 01/24/2018 by:Yohana saenz [facility] 96-Whz-432855:39 TSH (04224) Comments: PATIENT NOT FASTINGPERFORMED BY: [facility]6370 [facility] [id number] BY: [address] [id number] TSH 1.150 {uIU/mL} (Normal) Range: 0.450-4.500 :39 METABOLIC PANEL, Comments: PATIENT NOT FASTINGPERFORMED BY: [employer] BioscienceDavid [place] 7715370 [facility] [id number] BY: [employer] [id number] COMPREHENSIVE (48186) ALT (SGPT) 18 [iU]/L (Normal) Range: 0-32 [...] Comments: PATIENT NOT FASTINGPERFORMED BY: CB [facility] Arxyey[address] [place] [id number] BY: BN [facility] Rqgpizqjbx1709 [facility] [id number] (33543) Immature Grans (Abs) 0.0 {x10E3/uL} (Normal) Range: [...] 3.77-5.28 WBC 6.6 {x10E3/uL} (Normal) Range: 3.4-10.8 81-Vaj-386677:39 TRILEPTAL-OXCARBAZEPINE 338618 Comments: PATIENT NOT FASTINGPERFORMED BY: [facility] Qgrnzf7384 [address] Road[address]ublin [place] [id number] BY: Lab[address] [id number] (37590) Oxcarbazepine 28 ug/mL (Normal) Range: 10-35 Comments: Detection Limit = 1 :39 CALCIFIDIOL (65453) VIT D Comments: PATIENT NOT FASTINGPERFORMED BY: [facility] Soraxm0979 [address] RoadDublin [place] [id number] BY: Lab[address] [id number] 25 Vitamin D, 25-Hydroxy 56.3 ng/mL (Normal) Range: 30.0-100.0 Comments: Vitamin D deficiency has been defined by the [place] ofMedicine and an Endocrine Society practice guideline as alevel of serum 25-OH vitamin D less than 20 ng/mL (1,2).The Endocrine Society went on to further define vitamin Dinsufficiency as a level between 21 and 29 ng/mL (2).1. IOM ([place] of Medicine). 2010. Dietary reference intakes for calcium and D. [place]: The National Academies Press.2. Gabbi MF, Singh [place], Pollo JOSEPH, et al. Evaluation, treatment, and prevention of vitamin D deficiency: an Endocrine Society clinical practice guideline. JCEM. 2010; 96(7):1911-30. 38-Ykl-979621:39 HGB A1C (08536) Comments: PATIENT NOT FASTINGPERFORMED BY: [facility] Dmktox7829 [address] RoadDublin [place] [id number] BY: Lab[address] [id number] Hemoglobin A1c 5.7 % (Abnormal) Range: 4.8-5.6 Comments: . Pre-diabetes: 5.7 - 6.4 Diabetes: >6.4 Glycemic control for adults with diabetes: <7.0 :11 THROAT CULTURE (39105) Comments: PATIENT NOT FASTINGPERFORMED BY: [facility] Gfkopm8926 [address] RoadDublin [place] [id number] Information: SRC:TH Result 1 RRF (Normal) Comments: Routine respiratory jasper Upper Respiratory Culture Final report (Normal) :35 CBC W/Diff, Automated Comments: [facility] [address] [place], [place], [address] Absolute Lymph 1.23 {X10_3/ul} (Normal) Range: 0.83-4.51 [...] 4.2-5.4 WBC 4.9 K/mm3 (Normal) Range: 4.4-11.0 90-Bkp-168549:35 CRP Comments: [facility] [address] [place], [address] C-REACTIVE PROT < 2.90 mg/L (Normal) Range: 0.0-3.0 Comments: C-Reactive Protein (CRP) provides useful information for thediagnosis, therapy and monitoring of inflammatory processesand associated diseases. For the evaluation of Relative Riskfor Cardiovascular Dise ase, a High Sensitivity CRP (HSCRP)should be ordered. 3-Dkm-085763:15 Culture, Nose Comments: [facility] [address] [place], [address] CUN See Note (Normal) Comments: Comments: THICK [...] $ <=20 S(NF) indicates non-formulary drug at [facility]. Ap proval by Infectious Disease Specialist required before non-formulary drugs may be ordered and/or dispensed. Pseudomonas aeroginosa: REACTION Cefepime $ <=1 S Ceftazidime *NF 2 S Ciprofloxacin $ 2 I Gentamicin $ <=1 S Imipenem *NF 1 S Levofloxacin $ 4 I Piperacillin/Tazobactam $$ 8 S Tobramycin $ <=1 S(NF) rocky cates non-formulary drug at [facility]. Approval by Infectious Disease Specialist required before non-formulary drugs may be ordered and/or dispensed. 92-Kzq-910234:34 LIPID PANEL (71227) Comments: PATIENT NOT FASTINGPERFORMED BY: CB [facility] Cjeawx7194 [facility] [id number] BY: [facility] [address] [id number] LDL/HDL Ratio 1.5 {ratio_units} (Normal) Range: 0.0-3.2 Comments: LDL/HDL Ratio Men Women 1/2 Avg.Risk 1.0 1.5 Av g.Risk 3.6 3.2 2X Avg.Risk 6.2 5.0 3X Avg.Risk 8.0 6.1 LDL Cholesterol Calc 76 mg/dL (Normal) Range: 0-99 VLDL Cholesterol Dirk 17 mg/dL (Normal) Range: 5-40 HDL Cholesterol 50 mg/dL (Normal) Triglycerides 84 mg/dL (Normal) Range: 0-149 Cholesterol, Total 143 mg/dL (Normal) Range: 100-199 53-Yad-511266:34 METABOLIC PANEL, Comments: PATIENT NOT FASTINGPERFORMED BY: CB [facility] Sxwnxm5302 [facility] [id number] BY: BN [facility] Yehpjxrqhe2683 [facility] [id number] [facility] ([address]) ALT (SGPT) 20 [iU]/L (Normal) Range: 0-32 [...] Glucose, Serum 137 mg/dL (Abnormal) Range: 65-99 01-Csp-350955:34 CBC with auto diff Comments: PATIENT NOT FASTINGPERFORMED BY: HARRIET [facility] Kxlypr[address] [place] [id number] BY: [facility] [address] [id number] (51500) Immature Grans (Abs) 0.0 {x10E3/uL} (Normal) Range: [...] 3.77-5.28 WBC 4.5 {x10E3/uL} (Normal) Range: 3.4-10.8 01-Xou-105140:34 TRILEPTAL-OXCARBAZEPINE 168672 Comments: PATIENT NOT FASTINGPERFORMED BY: [facility] Rytywg3977 [facility] [id number] BY: [facility] [id number] (12369) Oxcarbazepine 23 ug/mL (Normal) Range: 10-35 Comments: Detection Limit = 1 :34 HGB A1C (02219) Comments: PATIENT NOT FASTINGPERFORMED BY: [facility] Rksfis2159 [facility] [id number] BY: [facility] [address] [id number] Hemoglobin A1c 6.1 % (Abnormal) Range: 4.8-5.6 Comments: . Pre-diabetes: 5.7 - 6.4 Diabetes: >6.4 Glycemic control for adults with diabetes: <7.0 :34 CALCIFIDIOL (06291) VIT D Comments: PATIENT NOT FASTINGPERFORMED BY: [facility] Gvlsje7777 [facility] [id number] BY: [facility] [id number] 25 Vitamin D, 25-Hydroxy 49.1 ng/mL (Normal) Range: 30.0-100.0 Comments: Vitamin D deficiency has been defined by the [place] ofMedicine and an Endocrine Society practice guideline as alevel of serum 25-OH vitamin D less than 20 ng/mL (1,2).The Endocrine Society went on to further define vitamin Dinsufficiency as a level between 21 and 29 ng/mL (2).1. IOM ([place] of Medicine). 2010. Dietary reference intakes for calcium and D. [place]: The National Academies Press.2. Gabbi MF, Singh [place], Pollo JOSEPH, et al. Evaluation, treatment, and prevention of vitamin D deficiency: an Endocrine Society clinical practice guideline. JCEM. 2010; 96(7):1911-30. 24-Gvx-138924:15 Culture, Throat Comments: [facility] [address] [place], [address] CUT See Note (Normal) Comments: Culture, ThroatMixed [...] $ <=20 S(NF) indicates non-formulary drug at [facility]. Approval by Inf tious Disease Specialist required before non-formulary drugs may be ordered and/or dispensed. 93-Aga-94647:30 Culture, Wound Comments: [facility] [facility] [address] [place], [address] CUW See Note (Normal) Comments: Comments: COLLECTED [...] $ <=20 S(NF) indicates non-formulary drug at [facility]. Approval by Infectious Disease Specialist required before non-formulary drugs may be ordered and/or dispensed. Pseudomonas aeroginosa: REACTION Cefepime $ <=1 S Ceftazidime *NF <=1 S Ciprofloxacin $ 0.5 S Gentamicin $ <=1 S Imipenem *NF 1 S Levofloxacin $ 1 S Piperacillin/Tazobactam $$ 8 S Tobramycin $ <=1 S(NF) indicates non-formulary drug at [facility]. Approval b y Infectious Disease Specialist required before non-formulary drugs may be ordered and/or dispensed. :37 Base Excess ISTAT Comments: [place] [address] [place] [address] BE ISTAT 6 mmol/L (Abnormal) :37 Bicarbonate ISTAT Comments: [place] [address] [place] [address] HCO3 ISTAT 30 mmol/L (Abnormal) Range: 22-26 Comments: Site = R BrachialAllens Test = NAMode = A-CDevice = VentFIO2 = 40Results To = ED MDTime Given = 2350MV = 4.5VT = 250RR = 21PEEP = 7 :37 Blood Gas Specimen Type Comments: [place] [address] [place] [address] BLD GAS TYPE ART (Normal) 22-Prs-382005:37 pCO2 - ISTAT 40.0 {mmHg} (Normal) Comments: [place] [address] [place] [address] Range: 35-45 :37 pH - I-STAT 7.48 (Abnormal) Comments: [place] [address] [place] [address] Range: 7.35-7.45 :37 PO2 I-STAT 65 {mmHG} (Abnormal) Comments: [place] [address] [place] [address] Range: 75-100 34-Uos-137285:37 SO2 ISTAT 94 % (Abnormal) Comments: [facility] LaboratoryPoint [place] [address] [address] [address] Range: 95-99 60-Hib-646157:37 Total Carbon Dioxide ISTAT Comments: [facility] [place] [address] [place] [address] TOTAL CO2 ISTAT 31 mmol/L (Normal) 52-Wub-372073:55 Basic Metabolic Profile (BMP) Comments: [address] [place], [address] GAP 5 (Normal) Range: 5-15 CO2 [...] Range: 70-110 :55 CBC W/Diff, Automated Comments: [place] [address] [place], [address] Absolute Lymph 1.51 {X10_3/ul} (Normal) Range: [...] 4.2-5.4 WBC 4.6 K/mm3 (Normal) Range: 4.4-11.0 0-Lyd-997804:52 Anaerobic and Aerobic Comments: PERFORMED BY: [facility] Mwevdn1053 [facility] [id number] Information: buttock SRC:WO Culture Antimicrobial MIHEAD (Normal) [...] 72 hours. Anaerobic Culture Final report (Normal) 6-Oiv-668230:39 CBC With Differential/Platelet Comments: PERFORMED BY: CB [facility] Gogpkg2731 [facility] [id number] BY: BN [facility] [address] [id number] Immature Grans (Abs) 0.0 {x10E3/uL} (Normal) Range: [...] 3.77-5.28 WBC 5.1 {x10E3/uL} (Normal) Range: 3.4-10.8 9-Jcg-737977:39 Comp. Metabolic Panel Comments: PERFORMED BY: CB [facility] Rfhnza1315 [facility] [id number] BY: BN [facility] Ilpfeowesv4352 [facility] [id number] (14) ALT (SGPT) 27 [iU]/L (Normal) Range: [...] 65-99 :39 Oxcarbazepine (Trileptal),S Comments: PERFORMED BY: [employer] [facility] [id number] BY: [address] [id number] Oxcarbazepine 24 ug/mL (Normal) Range: 10-35 Comments: Detection Limit = 1 :39 TSH 1.640 {uIU/mL} Comments: PERFORMED BY: [employer] [id number] BY: [address] [id number] (Normal) Range: 0.450-4.500 :39 Vitamin B12 and Folate Comments: PERFORMED BY: [employer] [id number] BY: [employer] [id number] Folate (Folic Acid), 8.0 ng/mL (Normal) Comments: A serum folate concentration of less than 3.1 ng/mL isconsidered to represent clinical deficiency. Serum Vitamin B12 1048 pg/mL Range: 211-946 (Abnormal) : Vitamin D, 40.7 ng/mL (Normal) Comments: PERFORMED BY: [employer] [id number] BY: [address] [id number] 39 25-Hydroxy Range: 30.0-100.0 Comments: Vitamin D deficiency has been defined by the [place] ofMedicine and an Endocrine Society practice guideline as alevel of serum 25-OH vitamin D less than 20 ng/mL (1,2).The Endocrine Society went on to further define vitamin Dinsufficiency as a level between 21 and 29 ng/mL (2).1. IOM ([place] of Medicine). 2010. Dietary reference intakes for calcium and D. [place]: The National Academies Press.2. Gabbi MF, Singh MCKEON, Pollo JOSEPH, et al. Evaluation, treatment, and prevention of vitamin D deficiency: an Endocrine Society clinical practice guideline. JCEM. 2010; 96(7):1911-30. 00-Wbb-689908:00 Urinalysis, Complete Comments: Order Date: 02/28/16How was Urine Obtained? [facility] [address]wr[address] [place], [place], [id number] MUCUS, URINE RARE {/hpf} (Normal) BACTERIA 0 [...] CLARITY Sl. Cloudy (Normal) COLOR Yellow (Normal) 64-Ned-848325:00 Basic Metabolic Profile (BMP) Comments: [facility] [address] [place], [place], [address] GAP 8 (Normal) Range: 5-15 CO2 26.0 [...] 7-18 GLU 84 mg/dL (Normal) Range: 70-110 57-Xeq-727281:00 CBC W/Diff, Automated Comments: [facility] [address]ct[address] [place], [place], [address] Absolute Lymph 1.11 {X10_3/ul} (Normal) Range: 0.83-4.51 [...] 4.2-5.4 WBC 5.5 K/mm3 (Normal) Range: 4.4-11.0 36-Iak-957535:00 Lactic Acid Comments: [address] [place], [address] LACTIC ACID 1.6 mmol/L (Normal) Range: 0.4-2.0 :00 Lipase Comments: [address] [place], [place], [address] LIPASE 177 U/L (Normal) Range: 73-393 :00 Liver Profile Comments: [address] [place], [address] D BILI 0.08 mg/dL (Normal) Range: [...] (Normal) Range: 6.4-8.2 :30 CDIFF (Molecular) Comments: [address] [place], [place], [id number] CDIFF See Note (Normal) Comments: Cdiff-MolecularC. Diff DNA Negative- No toxigenic C. Diff DNA Detected :30 ENTERIC PATHOGEN PANEL STOOL Comments: [address] [place], [id number] EP PANEL See Note (Normal) Comments: EP [...] DetectedRotavirus Not Detected :30 Stool Lactoferrin/WBC Comments: [facility] [address] [facility] [address] [place], [place], [id number] WBCST See Note (Normal) Comments: Stool Lacto/WBCFecal WBC Lactoferrin Negative: No Fecal WBC Lactoferrin present :30 Stool Occult Blood iFOB Comments: [facility] [address] [place], [address] STOB See Note (Normal) Comments: STOB iFOBOccult Blood Negative 91-Gem-945952:35 Urinalysis, Complete Comments: How was Urine Obtained? [facility] SPECIMENWAsht[facility] Alvfoyravw[address] [facility] [address] [place], [address] MUCUS, URINE 0 SEEN {/hpf} [...] (Normal) CLARITY Cloudy (Normal) COLOR Yellow (Normal) 12-Xpd-334410:00 CBC W/Diff, Automated Comments: [facility] [address] [place], [address] SMEAR COMMENT SCANNED (Normal) Comments: [...] 4.2-5.4 WBC 6.8 K/mm3 (Normal) Range: 4.4-11.0 85-Iic-105268:00 Comprehensive Metabolic Profil Comments: [facility] [address]avga[address] [place], [place], [address] GAP 9 (Normal) Range: 5-15 CO2 29.0 [...] 7-18 GLU 84 mg/dL (Normal) Range: 70-110 21-Oeo-591910:00 Lactic Acid Comments: [facility] Cdwroksakb1535 [facility] [place], [place], [address] LACTIC ACID 2.6 mmol/L (Abnormal) Range: 0.4-2.0 23-Wrj-142449:00 Partial Thromboplast Time Comments: [facility] [address] [place], [place], [address] PTT 26.7 s (Normal) Range: 24.1-36.2 80-Jck-528906:00 Prothrombin Time w/INR Comments: [facility] [address] [place], [place], [address] INR 1.0 (Normal) PROTIME 13.1 s (Normal) Range: 11.7-14.9 20-Jan-20161:25 PREALBUMIN (26731) Comments: PERFORMED BY: [facility] Aswitw0119 [facility] [id number] Prealbumin 27 mg/dL (Normal) Range: 9-31 Comments: [...] - 36 >70 years 9 - 32 29-Pth-445592:16 Clostridium difficile Toxin Comments: PERFORMED BY: [facility] Cagyrc8397 [facility] [id number] A+B, EIA (90930) C difficile Toxins A+B, EIA Negative (Normal) 14-Hch-037312:00 Culture, Urine Comments: [facility] [address] [place], [place], [address] CUUR See Note (Normal) Comments: Urine CultureCulture exhibits no growth. 49-Zgi-380809:00 Urinalysis, Complete Comments: How was Urine Obtained? CLEAN [facility] [address] [place], [place], [address] MUCUS, URINE 0 SEEN {/hpf} (Normal) BACTERIA [...] CLARITY Sl. Cloudy (Normal) COLOR Yellow (Normal) 63-Lnh-330426:30 Culture, Urine Comments: [facility] [address] [place], [place], [address] CUUR See Note (Normal) Comments: Urine CultureORGANISM 1: Enterococcus faecalisColony Count >100,000 Enterococcus faecalis: REACTION Ampicillin $ <=2 S Benzylpenicillin NF 2 S Ciprofloxacin $ <=0.5 S Gentamicin SYN-S S Levofloxacin $ 1 S Linezolid $$$$ 2 S Nitrofurantoin $ <=16 S Streptomycin $ SYN- S S Tetracycline NF >=16 R Vancomycin $ 1 S(NF) indicates non-formulary drug at [facility]. Approval by Infectious Disease Specialist required before non-formulary drugs may be ordered and/or dispensed. * CLSI guidelines does not recommend testing of cephalosporins. This interpretation is deduced from Beta-lactam/penicillin results. 21-Mev-009579:30 Urinalysis, Complete Comments: How was Urine Obtained? [facility], [facility] [address]redxf[address] [place], [place], [id number] MUCUS, URINE 0 SEEN {/hpf} (Normal) BACTERIA [...] CLARITY Sl. Cloudy (Normal) COLOR Yellow (Normal) 35-Hzw-529270:00 ENTERIC PATHOGEN PANEL STOOL Comments: [facility] [address] [place], [place], [id number] EP PANEL See Note (Normal) Comments: RESULTS [...] DetectedVIBRIO Not DetectedNorovirus Not DetectedRotavirus Not Detected 97-Umg-068734:00 Stool Lactoferrin/WBC Comments: [facility] [address] [place], [place], [address] WBCST See Note (Normal) Comments: RESULTS CALLED TO DR. HOUSTON 09/10/15 @1952 BY THADDEUS.Stool Lacto/WBCFecal WBC Lactoferrin Negative: No Fecal WBC Lactoferrin present 08-Tfg-506922:00 Stool Occult Blood iFOB Comments: [facility] [address] [place], [place], [address] STOB See Note (Normal) Comments: RESULTS CALLED TO DR. HOUSTON 09/10/15 @3 BY THADDEUS.STOB iFOBOccult Blood Negative 20-Jan-20161:29 CBC with auto diff Comments: PERFORMED BY: CB [facility] Djjhuj7315 [facility] [id number] BY: [facility] [address] [id number] ([address]) Immature Grans (Abs) 0.0 {x10E3/uL} (Normal) Range: [...] METABOLIC PANEL, Comments: PERFORMED BY: CB [facility] Qmsvlo2787 [facility] [id number] BY: BN [facility] [address] [id number] [facility] ([address]) ALT (SGPT) 17 [iU]/L (Normal) Range: 0-32 [...] 73 mg/dL (Normal) Range: 65-99 :29 CALCIFIDIOL (93184) VIT D Comments: PERFORMED BY: [employer] [facility] [id number] BY: [employer] [id number] 25 Vitamin D, 25-Hydroxy 39.5 ng/mL (Normal) Range: 30.0-100.0 Comments: Vitamin D deficiency has been defined by the [place] ofSelect [facility] Hospitalcine and an Endocrine Society practice guideline as alevel of serum 25-OH vitamin D less than 20 ng/mL (1,2).The Endocrine Society went on to further define vitamin Dinsufficiency as a level between 21 and 29 ng/mL (2).1. IOM ([place] of Medicine). 2010. Dietary reference intakes for calcium and D. [place]: The National Academies Press.2. Gabbi MF, Singh MCKEON, Pollo JOSEPH, et al. Evaluation, treatment, and prevention of vitamin D deficiency: an Endocrine Society clinical practice guideline. JCEM. 2010; 96(7):1911-30. :29 TRILEPTAL-OXCARBAZEPINE [id number] Comments: PERFORMED BY: [employer] [place] [id number] BY: [facility] Zenrgbhjcp7067 [facility] [id number] (71756) Oxcarbazepine 38 ug/mL (Abnormal) Range: 10-35 Comments: Detection Limit = 1 18-Jtp-511949:30 CBC W/Diff, Automated Comments: [facility] [address] [place], [place], [address] Absolute Lymph 0.90 {X10_3/ul} (Normal) Range: 0.83-4.51 [...] 4.2-5.4 WBC 5.2 K/mm3 (Normal) Range: 4.4-11.0 76-Oka-195939:30 Comprehensive Metabolic Profil Comments: [facility] [address] [place], [address] GAP 8 (Normal) Range: 5-15 [...] 200 mg/dLsuggests DIABETES MELLITUS per A.D.A. criteria. 56-Cmb-100398:30 Lipid Profile Comments: [facility] [address] [place], [address] VLDL 38 mg/dL (Normal) Range: [...] 200-240 mg/dL Borderline >240 mg/dL High Risk 84-Usi-433396:30 Prealbumin Comments: [facility] [address]tslrm[address] [place], [address] PREALBUMIN 26.0 mg/dL (Normal) Range: 20.0-40.0 99-Oyr-983961:30 Thyroid Stim Hormone (TSH) Comments: [facility] [address] [place], [address] TSH 1.02 {uIU/mL} (Normal) Range: 0.358-3.74 11-Imt-364976:30 Trileptal-Oxcarbazepine Comments: [facility] (refer to report for specific site)refer to report for address and phone number TRILEPT [id number] 38 ug/mL (Abnormal) Range: 10-35 Comments: Detection Limit = 1Performed at: [facility] [address] [id number] Director: Reji Gibson MD, Phone: [phone] 44-Jrm-152884:30 Vitamin D,25 Hydroxy Comments: [facility] [address]kmccxk[address] [place], [address] Vitamin D 25-OH 38.4 ng/mL (Normal) Comments: Vitamin D 25(OH) Status Range Deficiency <20 ng/mL (50nmol/L) Insuffciency 20 - 30 ng/mL (50 - 75 nmol/L) Sufficiency 30 - 100 ng/mL (75 - 250 nmol/L) Toxicity >100 ng/mL (>250 nmol/L) 4-Yeu-812468:45 CBC-Complete Blood Cnt No Diff Comments: Test performed at:[facility] [address]zbgl[address] [place] [address] MPV 10.5 fL (Normal) Range: 6.2-12.0 [...] 4.2-5.4 WBC 6.3 K/mm3 (Normal) Range: 4.4-11.0 0-Sgm-385926:45 Comprehensive Metabolic Profil Comments: Is Patient Taking Vitamins or Folic Acid Supplements? NTest performed at:[facility] [address]kda[address] [place] [address] GAP 7 (Normal) Range: 5-15 CO2 29.0 [...] Vitamins or Folic Acid Supplements? NTest performed at:[facility] [address]dr[address] [place] [address] C-REACTIVE PROT < 2.90 mg/L (Normal) Range: 0.0-3.0 Comments: C-Reactive Protein (CRP) provides useful information for thediagnosis, therapy and monitoring of inflammatory processesand associated diseases. For the evaluation of Relative Riskfor Cardiovascular Dise ase, a High Sensitivity CRP (HSCRP)should be ordered. :45 Erythrocyte Sed Rate Comments: Test performed at:[facility] [address] [place] [address] SED RATE 13 mm/h (Normal) Range: 0-20 :45 Folates, (Folic Acid) Comments: Is Patient Taking Vitamins or Folic Acid Supplements? NTest performed at:[facility] S[address]za[address] [place] [address] FOLATES 15.70 ng/mL (Normal) Range: 3.1-17.5 :45 Free T3 Comments: Is Patient Taking Vitamins or Folic Acid Supplements? NTest performed at:[facility] [address]okk[address] [place] [address] FREE T3 2.4 pg/mL (Normal) Range: 2.18-3.98 :45 Miscellaneous Lab Procedure Comments: Test(s) Ordered: OXCARBAZEPINE, #[id number], RED TOP SERUM/RFTest performed at:[facility] [address] [place] [address] MISC Comments: Oxcarbazepine (Trileptal), S Oxcarbazepine 35 ug/mL Ref: Detection Limit=1 TESTING PERFOR MED AT [facility] (Normal) rp. ORIGINAL REPORT ON FILE IN LAB CONTAINS ADDITIONAL TEST SITE INFORMATION. TEST 8-Fpq-850127:45 Prealbumin Comments: Is Patient Taking Vitamins or Folic Acid Supplements? NTest performed at:[facility] Eafdwvqhfm4052 [facility] [place] [address] PREALBUMIN 30.9 mg/dL (Normal) Range: 20.0-40.0 :45 ,Serum,hCG Quali. Comments: Test performed at:[facility] Wjlyfbublp1468 [facility] [place] [address] HCGSQUAL NEGATIVE {Negative} (Normal) Range: 0-9 Nonpreg HCG Qual triggr < 1 m[iU]/mL (Normal) :45 Prolactin Comments: Is Patient Taking Vitamins or Folic Acid Supplements? NTest performed at:[facility] Npuqevimfa8598 [facility] [place] [address] PROLACTIN 9.5 ng/mL (Normal) Comments: NORMAL REFERENCE RANGES FEMALE NON- 2.2 - 30.3 ng/mL 8.1 - 347.6 ng/mL POST-MENOPAUSAL 0.7 - 3 1.5 ng/mL MALE 2.5 - 17.4 ng/mLNEW TEST METHOD AND REFERENCE RANGES FEBRUARY 01, 201218-Dec-20149-Lfy-459998:45 T4 Free Direct Comments: Is Patient Taking Vitamins or Folic Acid Supplements? NTest performed at:[facility] Rdmsaeeyxs3996 [facility] [place] [address] T4 FREE DIRECT 0.74 ng/dL (Abnormal) Range: 0.76-1.46 4-Gjw-394032:45 Thyroid Stim Hormone (TSH) Comments: Is Patient Taking Vitamins or Folic Acid Supplements? NTest performed at:[facility] [address]zzda[address] [place] [address] TSH 1.39 {uIU/mL} (Normal) Range: 0.358-3.74 1-Vlg-659252:45 Urinalysis, Routine (Dipstick) Comments: How was Urine Obtained? Urine, RandomTest performed at:[facility] Puimwmrxnf[address] [place] [address] LEUK ESTERASE 500 /ul (Abnormal) OCCULT BLOOD-UR Negative /ul (Normal) NITRITE UR Negative (Normal) UROBILI Normal mg/dL (Normal) PROT DIPSTX Negative mg/dL (Normal) pH UR 8.0 (Normal) Range: 5.0 - 8.0 SP.GR. DIPSTX 1.010 (Normal) Range: 1.002-1.030 KETONE UR Negative mg/dL (Normal) BILIRUBIN URINE Negative mg/dL (Normal) GLUCOSE, UR Normal mg/dL (Normal) CLARITY Sl. Cloudy (Normal) COLOR Yellow (Normal) 9-Bii-140287:45 Vitamin B12 1089 pg/mL (Abnormal) Comments: Test performed at:[facility] [address]lmebuqfsh[address] [place] [address] Range: 211-911 9-Xbk-537644:45 Vitamin D,25 Hydroxy Comments: Test performed at:[facility] Kpcduelhtf[address] [place] [address]81 Vitamin D 25-OH 23.9 ng/mL (Normal) Comments: Vitamin D 25(OH) Status Range Deficiency <20 ng/mL (50nmol/L) Insuffciency 20 - 30 ng/mL (50 - 75 nmol/L) Sufficiency 30 - 100 ng/mL (75 - 250 nmol/L) Toxicity >100 ng/mL (>250 nmol/L) 01-Lib-735626:43 ALBUMIN SERUM (97076) Comments: PATIENT NOT FASTINGPERFORMED BY: [facility] Qfpsae1957 [facility] [id number] Albumin, Serum 4.7 g/dL (Normal) Range: 3.5-5.5 05-Idb-801929:43 PREALBUMIN (42624) Comments: PATIENT NOT FASTINGPERFORMED BY: [facility] Ydywxk9050 [facility] [id number] Prealbumin 29 mg/dL (Normal) Range: 20-40 62-Aet-948106:21 ANJELICA CULTURE-OTHER (75355) Comments: PATIENT NOT FASTINGPERFORMED BY: [facility]6370 [facility] [id number] Information: SRC:THRT [id number] Result 1 RRF (Normal) Comments: Routine respiratory jasper Upper Respiratory Culture Final report (Normal) 17-Pkv-356662:43 PROLACTIN (61114) Comments: PATIENT NOT FASTINGPERFORMED BY: [facility] Xxznkz2345 [facility] [id number] Prolactin 13.8 ng/mL (Normal) Range: 4.8-23.3 61-Lej-982440:43 T3, FREE (TRIDOTHYRONINE) (45059) Comments: PATIENT NOT FASTINGPERFORMED BY: [facility] Rhcvjz8822 [facility] [id number] Triiodothyronine,Free,Serum 3.3 pg/mL (Normal) Range: 2.0-4.4 03-Hts-823664:43 T4, FREE (THYROXINE) (77552) Comments: PATIENT NOT FASTINGPERFORMED BY: [facility] ClinicIrtsco3767 [facility] [id number] T4,Free(Direct) 1.14 ng/dL (Normal) Range: 0.82-1.77 48-Kqr-308193:43 TSH (54171) Comments: PATIENT NOT FASTINGPERFORMED BY: [facility]6370 [facility] [id number] Information: [id number] TSH 1.580 {uIU/mL} (Normal) Range: 0.450-4.500 42-Pog-313261:00 CBCD ANC 1.8 {X10_3/uL} (Abnormal) Range: 2.0-7.7 [...] CDIFF See Note (Normal) Comments: FAXED TO VP4.219 C. Diff DNA Positive-Toxigenic C. Difficile DNA [...] spora, or Mi crosporidia. TESTING PERFORMED AT [facility]. ORIGINAL REPORT ON FILE IN LAB CONTAINS [...] Detected :55 Oxcarbazepine (Trileptal),S Comments: PERFORMED BY: [address] [id number] BY: [address] [id number] Oxcarbazepine 32 ug/mL (Normal) Range: 10-35 Comments: Detection Limit = 1 :55 CALCIFIDIOL (27168) VIT D Comments: [facility]FORMED BY: [facility] [id number] BY: [address] [id number] 25 Vitamin D, 25-Hydroxy 27.4 ng/mL (Abnormal) Range: 30.0-100.0 Comments: Vitamin D deficiency has been defined by the [place] ofMedicine and an Endocrine Society practice guideline as alevel of serum 25-OH vitamin D less than 20 ng/mL (1,2).The Endocrine Society went on to further define vitamin Dinsufficiency as a level between 21 and 29 ng/mL (2).1. IOM ([place] of Medicine). 2010. Dietary reference intakes for calcium and D. [place]: The National Academies Press.2. Gabbi MF, Singh MCKEON, Pollo JOSEPH, et al. Evaluation, treatment, and prevention of vitamin D deficiency: an Endocrine Society clinical practice guideline. JCEM. 2010; 96(7):1911-30. 0-Jcg-785763:55 Folate (76605) Comments: PERFORMED BY: [employer] Kaeujo9983 [facility] [id number] BY: [address] [id number] Folate (Folic Acid), Serum 16.3 ng/mL (Normal) Comments: A serum folate concentration of less than 3.1 ng/mL isconsidered to represent clinical deficiency. 1-Zju-524901:55 VITAMIN B-12 (CYANOCOBALAMIN) Comments: PERFORMED BY: [employer]70 [facility] [id number] BY: [address] [id number] (78926) Vitamin B12 889 pg/mL (Normal) Range: 211-946 :55 TSH (30940) Comments: PERFORMED BY: [employer] [facility] [id number] BY: [address] [id number] TSH 1.670 {uIU/mL} (Normal) Range: 0.450-4.500 :55 SED RATE ERYTHROCYTE Comments: PERFORMED BY: [employer] [facility] [id number] BY: [address] [id number] (00414) Sedimentation Rate-Westergren 6 mm/h (Normal) Range: 0-32 8-Lft-427517:55 METABOLIC PANEL, Comments: PERFORMED BY: [employer] Grbzxn0700 [facility] [id number] BY: [address] [id number] COMPREHENSIVE (29983) ALT (SGPT) 11 [iU]/L (Normal) Range: 0-32 [...] cells when received.This may adversely affect serumChemistries. 9-Hry-068518:55 C-REACTIVE PROTEIN (26530) Comments: PERFORMED BY: [employer] Ymwyzi3470 [facility] [id number] BY: [address] [id number] C-Reactive Protein, Quant 0.9 mg/L (Normal) Range: 0.0-4.9 :55 CBC (AUTO) (40529) Comments: PERFORMED BY: [employer] Mmyogg7334 [facility] [id number] BY: [address] [id number] Platelets 213 {x10E3/uL} (Normal) Range: 140-415 Comments: [...] of these values in the reference population. 4-Zip-939985:29 ANJELICA CULTURE-OTHER (25958) Comments: PATIENT NOT FASTINGPERFORMED BY: [facility]6370 [facility] [id number] Information: SRC:THRT [id number] Result 1 RRF (Normal) Comments: Routine respiratory jasper Upper Respiratory Culture Final report (Normal) 3-Meo-463793:03 Rapid Strep Test, Office (32877) Rapid Strep Test, Negative (Normal) Office 24-Fgz-173049:55 CDIF See Note (Normal) Comments: A positive [...] these cases. C. DIFF ANTIGENS NEGATIVE :55 [facility] URC Culture exhibits no growth. (Normal) :55 [...] Comments: C. DIFF ANTIGENS NEGATIVE :2 TRILEPT [id number] 20 ug/mL (Normal) Range: 10-35 4 Comments: Detection Limit = 1Performed at: BN - [facility] [address] [id number] Director: Reji Gibson MD, Phone: [id number] 74-Rdn-759727:1 C DIF TOXIN/AG See Note (Normal) Comments: RESULTS CALLED TO 06/23/112004 VONDA EALM.REPORT READ BACK BY SAME . * This is an amended result. * A 5 prior result that was reported as final has been changed.06/23/112004 by IESHAPreviously reported as: C. DIFF ANTIGENS POSITIVE 96-Kjd-264130:46 COMP METABOLIC GAP 11 (Normal) Range: 5-15 [...] Comments: RESULTS CALLED TO OFFICE TO ALEXSANDRA07/17/10 KRISTIAN ALEXANDER.REPORT READ BACK BY SAME . Comments: TESTING [...] Cyclospora, or Microspo ridia. TESTING PERFORMED AT [facility]. ORIGINAL REPORT ON FILE IN LAB CONTAINS [...] Cyclospora, or Microspo ridia. [facility] ORIGINAL REPORT ON FILE IN LAB CONTAINS ADDITIONAL TEST SITE INFORMATION. OVA/ PARASITES EXAM NO OVA, CYSTS, OR PARASITES FOUND. :20 WBC,STOOL See Note (Normal) Comments: FECAL WBCs NONE SEEN 06-Jny-022444:14 C DIF TOXIN See Note (Normal) 57-Kuu-228779:44 O AND P See Note (Normal) Comments: OVA AND PARASITES EXAM, ROUTINE These results were obtained using wet preparation(s) and trichrome stained smear. This test does not include testing for Crytosporidium parvum, Cyclospora, or Microspo ridia. [facility]. ORIGINAL REPORT ON FILE IN LAB CONTAINS [...] Cyclospora, or Microspo ridia. TESTING PERFORMED AT [facility] [place]. ORIGINAL REPORT ON FILE IN LAB CONTAINS [...] mellitus, well controlled Convulsions : Reviewed Sales Advisor Letter Indication: Convulsions Neuromuscular scoliosis : Follow [...] Cystitis, acute Planned Observations URINE ANJELICA CULTURE-IDENTIFICATN ([id number])Indication: Abnormal urine On: 0-Tkd-748913:25 Request MRSA Culture ([id number])Indication: Thick sputum On: 8-Qrw-786104:32 Request Anaerobic & Aerobic Culture ([id number])Indication: Thick sputum On: 24-Aex-871365:46 Request Comments: collected from trachea stoma Anaerobic & Aerobic Culture ([id number])Indication: Cellulitis of groin, right On: 7-Flf-471439:44 Request TRILEPTAL-OXCARBAZEPINE [id number] ([id number])Indication: Diarrhea On: 6-Rgt-585614:24 Request VITAMIN B12 AND FOLATES (40090)Indication: Diarrhea On: 6-Myv-237175:24 Request CALCIFEDIOL (49337)Indication: Diarrhea On: 6-Dmk-344424:24 Request CALCIFEDIOL (22185)Indication: Diarrhea On: 0-Mgc-709347:23 Request TSH (THYROID STIMULATING HORMONE) (61698)Indication: Diarrhea On: : Request METABOLIC PANEL, COMPREHENSIVE (65734)Indication: Diarrhea On: : Request CBC, PLATELETS & AUT DIFF ([id number])Indication: Diarrhea On: : Request OVA & PARASITE DIR SMEAR (55775)Indication: Diarrhea On: :46 Request ANJELICA CULTURE-STOOL (00331)Indication: Diarrhea On: :46 Request OCCULT BLOOD FECES SCREEN (05581)Indication: Diarrhea On: :46 Request LEUKOCYTE COUNT, FECAL (67478)Indication: Diarrhea On: :46 Request C-DIFFICILE, STOOL (91484)Indication: Diarrhea On: :46 Request OVA & PARASITE DIR SMEAR (59456)Indication: C. difficile diarrhea On: :50 Request OCCULT BLOOD FECES SCREEN (65608)Indication: C. difficile diarrhea On: :50 Request ANJELICA CULTURE-STOOL (93527)Indication: C. difficile diarrhea On: :50 Request LEUKOCYTE COUNT, FECAL (51744)Indication: C. difficile diarrhea On: :50 Request C-DIFFICILE, STOOL (46439)Indication: C. difficile diarrhea On: :49 Request Clostridium difficile Culture (11603)Indication: Diarrhea On: 3-Ktn-682458:52 Request URINALYSIS, W/ MICRO (83617)Indication: Dysuria On: :56 Request URINE ANJELICA CULTURE-SISSY COL COUNT (34317)Indication: Dysuria On: :54 Request OCCULT BLOOD FECES SCREEN (34876)Indication: Diarrhea On: :01 Request LEUKOCYTE COUNT, FECAL (03480)Indication: Diarrhea On: :05 Request ANJELICA CULTURE-STOOL (27741)Indication: Diarrhea On: :05 Request Clostridium difficile Toxin A+B, EIA (98112)Indication: Diarrhea On: :05 Request TRILEPTAL-OXCARBAZEPINE [id number] (84340)Indication: Convulsions On: 75-Ltg-821921:55 Request PREALBUMIN (69086)Indication: Nutritional assessment On: :45 Request CALCIFIDIOL (35331) VIT D 25Indication: Vitamin D deficiency On: :44 Request TSH ([id number])Indication: Hypertension On: :44 Request METABOLIC PANEL, COMPREHENSIVE (84827)Indication: Hypertension On: :44 Request LIPID PANEL (42202)Indication: Hypertension On: :44 Request CBC with auto diff (56413)Indication: Hypertension On: :44 Request Metabolic Panel, Basic (76630)Indication: Abnormal urine On: :03 Request VITAMIN B12 AND FOLATES (67406)Indication: Abnormal urine On: :03 Request CALCIFEDIOL (65240)Indication: Abnormal urine On: :03 Request Comments: vit d3 URINE ANJELICA CULTURE-SISSY COL COUNT (56322)Indication: Abnormal urine On: 9-Eac-536872:52 Request TRILEPTAL-OXCARBAZEPINE [id number] (12145)Indication: Cerebral palsy On: 48-Xwu-811421:46 Request HCG Qualitative, Serum (28848)Indication: Amenorrhea On: 98-Qjs-576060:45 Request PROLACTIN (96827)Indication: Amenorrhea On: 54-Tho-203014:44 Request PREALBUMIN (86250)Indication: Cerebral palsy On: 25-Lwo-107586:43 Request URINALYSIS (64377)Indication: Fatigue On: :43 Request T3, FREE (TRIDOTHYRONINE) (91413)Indication: Fatigue On: :43 Request T4, FREE (THYROXINE) (04103)Indication: Fatigue On: :43 Request Folate (03100)Indication: Fatigue On: 06-Cwf-858570:42 Request CALCIFIDIOL (00010) VIT D 25Indication: Fatigue On: :42 Request VITAMIN B-12 (CYANOCOBALAMIN) (57252)Indication: Fatigue On: 94-Kuq-132432:42 Request TSH (41966)Indication: Fatigue On: 66-Jfd-730914:42 Request SED RATE ERYTHROCYTE (80808)Indication: Fatigue On: 53-Jze-321810:42 Request METABOLIC PANEL, COMPREHENSIVE (30615)Indication: Fatigue On: 57-Ysr-684147:42 Request C-REACTIVE PROTEIN (52780)Indication: Fatigue On: :42 Request CBC (AUTO) (90097)Indication: Fatigue On: :42 Request CULTURE,BODY FLUID (65572)Indication: Irregular Menstrual Cycle (Renamed from Irregular bleeding) On: 18-Tuv-927941:07 Request Comments: urine Rapid Strep Test, Office (84727)Indication: Pharyngitis, acute On: 17-Rmj-403750:51 Request Urinalysis, Office (66005)Indication: Fatigue On: 42-Fsi-862393:49 Request HgA1C , Office (17970)Indication: Hyperglycemia On: 27-Eqd-895293:41 Request CALCIFIDIOL (74723) VIT D 25Indication: Vitamin D deficiency On: 75-Xot-699039:32 Request TRILEPTAL-OXCARBAZEPINE 748145 (00602)Indication: Convulsions On: :31 Request Metabolic Panel, Comprehensive (78708)Indication: Acute renal failure On: :31 Request CBC with manual diff (08215)Indication: Hypertension On: :31 Request CBC with manual diff (47723)Indication: Thrombocytopenia, unspecified On: :35 Request Comments: in citrate tube FIBRINOGEN (29219)Indication: Thrombocytopenia, unspecified On: :35 Request PTT (Activated Partial Thromboplastin Time) (92785)Indication: Thrombocytopenia, unspecified On: :35 Request PT (Prothrobim Time) (99481)Indication: Thrombocytopenia, unspecified On: :35 Request HEPATITIS C ANTIBODY (45734)Indication: Thrombocytopenia, unspecified On: :35 Request HEPATITIS B CORE ANTBD-IGG/IGM (24596)Indication: Thrombocytopenia, unspecified On: :35 Request HEPATITIS B SURFACE ANTIGEN (09292)Indication: Thrombocytopenia, unspecified On: :35 Request HEPATITIS B SURFACE ANTIBODY (42885)Indication: Thrombocytopenia, unspecified On: :35 Request Methylmalonic acid, serum 13616Wfbgeihezb: Thrombocytopenia, unspecified On: :35 Request Vitamin B-12 (cyanocobalamin) (38197)Indication: Thrombocytopenia, unspecified On: :35 Request Sed Rate Erythrocyte (60360)Indication: Thrombocytopenia, unspecified On: :35 Request Metabolic Panel, Comprehensive (40093)Indication: Thrombocytopenia, unspecified On: :35 Request JENNY (ANTINUCLEAR ANTIBODY) (69358)Indication: Thrombocytopenia, unspecified On: : Request CBC with manual diff (57047)Indication: Convulsions On: 48-Zat-283752:31 Request Clostridium difficile Toxin A+B, EIA (14671)Indication: Diarrhea On: :31 Request OVA & PARASITE DIR SMEAR (31324)Indication: Diarrhea On: :44 Request OCCULT BLOOD FECES SCREEN (68804)Indication: Diarrhea On: :44 Request LEUKOCYTE COUNT, FECAL (77778)Indication: Diarrhea On: :44 Request ANJELICA CULTURE-STOOL (26542)Indication: Diarrhea On: :44 Request Clostridium difficile Toxin A+B, EIA (16794)Indication: Diarrhea On: 97-Mvx-165536:22 Request C DIFF AMPLIFIED PROBE (02351)Indication: Diarrhea On: 43-Eqs-78963:51 Request Metabolic Panel, Comprehensive (02544)Indication: Acute renal failure On: :08 Request Comments: recheck prior to August. CALCIFIDIOL (15384) VIT D 25Indication: Vitamin D deficiency On: :08 Request Comments: recheck prior to August. TRILEPTAL-OXCARBAZEPINE 076762 (85365)Indication: Convulsions On: :08 Request Culture, Stool (46951)Indication: Diarrhea On: 28-Mno-965612:01 Request C DIFF AMPLIFIED PROBE (26705)Indication: Diarrhea On: 06-Jrx-989788:01 Request C DIFF AMPLIFIED PROBE (86015)Indication: Diarrhea On: 36-Rvq-673231:32 Request C DIFF AMPLIFIED PROBE (06872)Indication: Diarrhea On: 26-Pxr-654689:51 Request URINE ANJELICA CULTURE-IDENTIFICATN (97787)Indication: Backache On: 0-Yed-766246:58 Request URINALYSIS (42671)Indication: Backache On: 5-Bvw-725621:58 Request Metabolic Panel, Comprehensive (31268)Indication: Profound mental retardation (Renamed from IQ under 20) On: 4-Nml-824876:25 Request Comments: Dr Pino neurologist at [facility] CBC (Auto) (60098)Indication: Profound mental retardation (Renamed from IQ under 20) On: 7-Vct-004417:25 Request TRILEPTAL-OXCARBAZEPINE 055737 (90193)Indication: Cerebral palsy On: 3-Wgw-199664:24 Request COLUMN CHROMATOGRAPHY, SISSY, SINGLE (79075)Indication: Convulsions On: 33-Ofr-483476:54 Request Comments: trileptal [id number] Clostridium difficile Toxin A+B, EIA (74975)Indication: Diarrhea On: 97-Hft-735808:26 Request CBC (Auto) (57367)Indication: Convulsions On: 17-Cwl-928434:25 Request Metabolic Panel, Comprehensive (11599)Indication: Convulsions On: 64-Tuz-239866:24 Request ANJELICA CULTURE-OTHER (09789)Indication: Pharyngitis, acute On: 8-Wpb-755003:44 Request C.Difficile, Stool (07846)Indication: Diarrhea On: 59-Rda-178838:48 Request ANJELICA CULTURE-STOOL (12653)Indication: Diarrhea On: :55 Request C.Difficile, Stool (80203)Indication: Diarrhea On: :54 Request LEUKOCYTE COUNT, FECAL (82066)Indication: Diarrhea On: 53-Tdh-293196:27 Request OVA & PARASITE DIR SMEAR (03589)Indication: Diarrhea On: 49-Gqu-956427:27 Request C.Difficile, Stool (70341)Indication: Diarrhea On: 54-Opr-544138:27 Request ANJELICA CULTURE-STOOL (42356)Indication: Diarrhea On: 60-Qky-632646:27 Request TSH (76200)Indication: Unspecified bacterial pneumonia On: :48 Request CBC, Platelets & Auto Diff (06880)Indication: Unspecified bacterial pneumonia On: :48 Request Magnesium (95238)Indication: Unspecified bacterial pneumonia On: :48 Request Phosphorus (47001)Indication: Unspecified bacterial pneumonia On: :48 Request Metabolic Panel, Basic (46608)Indication: Unspecified bacterial pneumonia On: :48 Request Planned Encounters Medical; 4 Month FU - On: 10-Oct-2018 13:15 [facility] Sandra Bermudez DO, DO, Kathleen Planned Procedures Flu Vaccine (Quadrivalent) On: 06-Jun-2018 Intent 82243Zq: Sandra Bermudez DO Comments: Lot #[id number]-L dltd, IMDose prefilled syringegiven by:MARICARMEN Santana reviewed and ABN signed Sandra Bermudez DO Flu Vaccine (Quadrivalent) On: 02-Aug-2017 Intent 03149Nr: Sandra Bermudez DO Comments: Lot:[id number]:12/29Amt:0.5mlRoute:IMSite: Rt DltdGiven By: ALFREDITO James signed Sandra Bermudez DO Flu Vaccine (Quadrivalent) On: 14-May-2016 Intent 57300Cr: Roe Baxter MD Comments: Lot #[id number]/30/17ite-L dltd, IMDose prefilled syringegiven by:ALFREDITO Goldberg and ABN signed ADMINISTRATION OF INFLUENZA On: 02-Aug-2015 Intent VIRUS VACCINE (G0008)By: Linda Houston MD Flu Vaccine (Quadrivalent) On: 02-Aug-2015 Intent 25627Vd: Linda Houston MD Comments: Lot #:[id number] date:Amount given:0.5mlRoute: IMSite given:L DltdGiven by: Jessica BASSETT and ABN signed Quad Flu ELECTROCARDIOGRAM, COMPLETE On: 21-Mar-2015 Intent (ECG) (27276)By: Linda Houston MD CT - Brain/Head (IV Contrast On: 29-Nov-2014 Intent Needed)By: Linda Houston MD ADMINISTRATION OF INFLUENZA On: 06-Aug-2014 Intent VIRUS VACCINE (G0008)By: TIMBO Villegas Flu Vaccine (Quadrivalent) On: 06-Aug-2014 Intent 95201Tj: TIMBO Villegas Comments: Lot #:[id number] date:mount given:0.5mlRoute: IM Site given:Given by: to be given per patient home health nurse CATHETERIZE FOR URINE SPEC On: 09-Mar-2014 Intent (P9612)By: Linda Houston MD Comments: pls use pediatric cath- and fax results to [phone] SPECIMEN HNDLNG/TRNSPRT, OFFC > On: 09-Mar-2014 Intent LAB (79663)By: Linda Houston MD IMMUNIZ ADMNIN, 1 VAC, On: 28-Jul-2013 Intent SNGL/COMBO (22393)By: Archie BOLDEN, Comments: Lot #[id number] to nurse for admin Jessica Stack FLU VAC, SPLIT, >3 YEARS, On: 28-Jul-2013 Intent INTRAMUSC (95284)By: Jessica Almanza LPN SPECIMEN HNDLNG/TRNSPRT, OFFC > On: 18-May-2013 Intent LAB (84060)By: Linda Houston MD Eprescribed prescriptions On: 18-May-2013 Intent (G8553)By: Jessica Almanza LPN FLU VAC, SPLIT, >3 YEARS, On: 23-Jun-2011 Intent INTRAMUSC (17932)By: Archie BOLDEN, Comments: Lot #[id number]-L arm, IMDose prefilledgiven by:Jessica Stack IMMUNIZ ADMNIN, 1 VAC, On: 23-Jun-2011 Intent SNGL/COMBO (90812)By: Jessica Almanza LPN Instructions Name Dates Details [...]
--- OUTSIDE RECORDS SUMMARY | 2018-10-08 11:35 | XMS RPT_ITS | Continuity of Care Document ---
:1990 Author Organization [facility] Address [address] [place] [address] Phone Care Team Providers Name Role Phone [...] Propionate 50 MCG/ACT Nasal Suspension 2 (two) [place](s) [place](s) each nostril qd for 90 days Quantity: [...] Houston MD Start : 20-Jan-2016 Active Nyamyc 841585 UNIT/GM External Powder uad Powder to affected area(s) bid and prn for 0 days Quantity: 15 {Bottle} Refills: 6 Ordered:19-Nov-2017 Karin Bermudez DO, DO, Kathleen Start : 19-Nov-2017 End : 17-Nov-2013 Active Nystatin 202167 UNIT/GM External Cream uad Cream to affected area(s) bid prn for 7 days Quantity: 1 {Bottle} Refills: 3 Ordered:03-Jun-2018 Karin Bermudez DO, DO, Kathleen Start : 03-Jun-2018 Active Nystatin 774955 UNIT/ML Mouth/Throat Suspension 5 ml ml 5 times day for 10 days Quantity: 250 {Milliliter} Refills: 9 Ordered:03-Apr-2016 Jessica Almanza LPN Start : 03-Apr-2016 Active Nystatin Powder 1 Powder Powder tid for 10 days Quantity: 1 {Bottle} Refills: 3 Ordered:28-Jun-2017 Karin Bermudez DO, DO, Kathleen Start : 28-Jun-2017 Active Pen [place] 31G X 5 MM Miscellaneous 1 (one) Misc 5 times a day for 0 days Quantity: 1 {Box} Refills: 11 Ordered:28-Jun-2018 Karin Bermudez DO, DO, Kathleen Start : 28-Jun-2018 Active Comments:ufine SODIUM CHLORIDE, 2.5MEQ/ML (Injection Solution) [...] Quantity: 30 {Tablet} Refills: 6 Ordered:21-Mar-2015 Long IT INFRASTRUCTURE ARCHITECT, Jessica L Start : 22-May-2013 Active Xopenex [...] for 0 days Refills: 0 Ordered:23-Jun-2011 Long IT INFRASTRUCTURE ARCHITECT, Jessica L End : 23-Jun-2011 Inactive LevoFLOXacin [...] for 0 days Refills: 0 Ordered:23-Jun-2011 Long IT INFRASTRUCTURE ARCHITECT, Jessica L End : 23-Jun-2011 Inactive MUCINEX FOR KIDS, 100MG/5ML (Oral Liquid) Liquid 15 cc tid 14 days for 0 days Refills: 0 Ordered:23-Jun-2011 Long IT INFRASTRUCTURE ARCHITECT, Jessica L Start : 13-Jun-2009 End : [...] Quantity: 30 {Packet} Refills: 2 Ordered:15-May-2016 Long IT INFRASTRUCTURE ARCHITECT, Jessica L Start : 14-May-2016 End : [...] nostril qd for 0 days Quantity: 1 {[place]} Refills: 3 Ordered:09-Apr-2015 Linda Houston MD Start : 09-Apr-2015 End : 20-Jan-2016 Discontinued Comments:This order discontinued per [employer]. MUCOMYST, 20% (Inhalation Solution) 1 bid/prn for 0 days Refills: 0 Ordered:23-Jun-2011 Long IT INFRASTRUCTURE ARCHITECT, Jessica L End : 23-Jun-2011 Discontinued Comments:This order discontinued per [employer]. VYTONE, 1-1% (External Cream) Cream bid for 0 days Quantity: 1 {Cream} Refills: 3 Ordered:13-Jun-2009 Long IT INFRASTRUCTURE ARCHITECT, Jessica L Start : 13-Jun-2009 End : [...] Result: Comments: See Note; NOTES: [facility] [address] [place] [address] OFFICE VISIT Date of Service: 05/25/18 MR#: [id number] Acct: [id number] Name: MANDY MONTERO Rep #: [id number] : 1990 Provider: Lawrence Weiner MD Age/Sex: 28/F [place] [facility] [place]: Signed Assessment AND Plan Problems 1. [...] Department Summary Result: Comments: See Note; NOTES: [facility] Medical Records Department [address] [place] [address] Emergency Department Summary 01/24/18 1645 MR#: [id number] Acct: [id number] Name: MANDY MONTERO Rep #: [id number] : 1990 27 From: Stephan Hughes MD [...] on ventilator This note was generated with Moment[employer] dictation software. It m ay contain incorrect [...] Instructions: Mandy prescription was [facility] What to do if you have Problems For any increased pain, shortness of breath, bleeding, nausea or vomiting, chest pain, or any unexpected problems, contact your Primary Care Provider. Call [facility] ([phone]) or report to the closest Emergency Room. Call 911 if necessary. 01/24/18 1662 <Electronically signed by Stephan Hughes MD> Date Stephan Hughes MD Cosigner Signature (If Indicated): Date CC: Sandra Bermudez DO 10-Dec-2017 Pulmonary Visit Report Result: Comments: See Note; NOTES: [facility] [place] [address] [place] [address] OFFICE VISIT Date of Service: 12/09/17 MR#: [id number] Acct: [id number] Name: MANDY MONTERO Rep #: [id number] : 1990 Provider: Lawrence Weiner MD Age/Sex: 27/F Location[place] [facility] Status: Signed Assessment AND Plan 1. Chronic [...] Comments: See Note; NOTES: [facility] [place] [address] [place] [address] OFFICE VISIT Date of Service: 09/02/17 MR#: [id number] Acct: [id number] Name: MANDY MONTERO Rep #: [id number] : 1990 Provider: Lawrence Weiner MD Age/Sex: 27/F Location[place] [facility] Status: Signed Assessment AND Plan 1. Spastic [...] mg (10 mL) PO QDAY PRN allergy pkdldvqeN06 .2 Ok to give through PEG Follow [...] cot with her mother and healthcare assistant director of security. Family reports the patient has had copious [...] Department Summary Result: Comments: See Note; NOTES: [facility] Medical Records Department [address] [place] [address] Emergency Department Summary MR#: [id number] Acct: [id number] Name: MANDY MONTERO Rep #: [id number] : 1990 26 From: Flip Jessica MD PCP: Sandra Bermudez DO Status: [facility] ER DATE OF SERVICE: 03/06/2017 CHIEF [...] . Flip Jessica MD T: NTS JOB: [id number] 03/10/17805 <Electronically signed by Flip Jessica MD> Date Flip Jessica MD Cosigner Signat ure (If Indicated): Date CC: Sandra Bermudez DO Date Dictated: 03/06/171722 Date Transcribed: 03/06/171722 Stogie Packer: Signed 06-Mar-2017 Discharge Instruction Result: Comments: See Note; NOTES: [facility] Medical Records Department [address] [place] [address] Discharge Instruction 03/06/171719 MR#: [id number] Acct: [id number] Name: ROMELIA MONTERO Rep #: [id number] : 1990 From: Flip Jessica MD PCP: [...] problems, contact your Primary Care Provider. Call [facility] ([phone]) or report to the closest Emergency Room. Call 911 if necessary. 03/06/17 1720 <Electronically signed by Flip Jessica MD> Date Flip Jessica MD Cosigner Signature (If Indicated): Date CC: Sandra Bermudez DO 06-Mar-2017 Chest 1 View Result: Comments: See Note; NOTES: [facility] Imaging Services [address] [place] [address] Verdana 4d Chest 1 View MR#: [id number] Acct: [id number] Name: MANDY MONTERO Rep #: [id number] : 1990 F 26 From: Merritt Bolton MD PCP: Sandra Bermudez DO Status: REG ER Study: Chest 1 View Date of Exam: 03/06/17 Exam# [id number] Ordering Dr: Flip Jessica MD STUDY: X-RAY [...] CC: Flip Jessica MD; Sandra Bermudez DO Stogie Packer: Signed 06-Mar-2017 Thoracic Spine 3 Views Result: Comments: See Note; NOTES: [facility] Imaging Services [address] [place] [address] Verdana 4d Thoracic Spine 3 Views MR#: [id number] Acct: [id number] Name: MANDY MONTERO Rep # : [id number] : 1990 F 26 From: Merritt Bolton MD PCP: Sandra Bermudez DO Status: REG ER Study: Thoracic Spine 3 Views Date of Exam: 03/06/17 Exam# [id number] Ordering Dr: Flip Jessica MD TERESA DY: [...] CC: Flip Jessica MD; Sandra Bermudez DO Stogie Packer: Signed 10-Sep-2016 Chest 1 View (Portable) Result: Comments: See Note; NOTES: [facility] Imaging Services [address] [place] [address] Verdana 4d Chest 1 View (Portable) MR#: [id number] Acct: [id number] Name: MIGUELZEFERINORickey Jefferson Rep #: [id number] : 1990 F 26 From: Mandy Chávez MD PCP: Sandra Bermudez DO Status: PRE ER Study: Chest 1 View (Portable) Date of Exam: 09/10/16 Exam# [id number] Ordering Dr: Vinnie Sher MD STUDY: X-RAY [...] MD at 23:49 EST , Service support [phone], CC: Linden Sher MD; Sandra Bermudez DO Stogie Packer: Signed 12-Mar-2016 Emergency Department Summary Result: Comments: See Note; NOTES: [facility] Medical Records Department [address] [place] [address] Emergency Department Summary MR#: [id number] Acct: [id number] Name: MANDY MONTERO Rep #: [id number] : 1990 25 From: Joseph Mcgee MD [...] Baxter Date Dictated: 02/29/16112 Date Transcribed: 02/29/16112 Stogie Packer: Signed 28-Feb-2016 Discharge Instruction Result: Comments: See Note; NOTES: [facility] Medical Records Department [address] [place] [address] Discharge Instruction 02/28/161925 MR#: [id number] Acct: [id number] Name: MANDY MONTERO Rep #: [id number] : 1990 From: Joseph Mcgee MD PCP: [...] problems, contact your doctor. Call [facility] ([phone]) or report to the closest Emergency Room. Call 911 if necessary. 224 <Electronically signed by Joseph Mcgee MD> Date Joseph Mcgee MD Cosigner Signature (If Indicated): Date ___ CC: Roe Baxter 28-Feb-2016 Abdomen/Pelvis without Cont Result: Comments: See Note; NOTES: [facility] Imaging Services [address] [place] [address] Verdana 4d Abdomen/Pelvis without Cont MR#: [id number] Acct: [id number] Name: MANDY MONTERO Rep #: [id number] : 1990 F 25 From: Seymour Villagomez MD PCP: Reo Baxter Status: REG ER Study: Abdomen/Pelvis without Cont Date of Exam: 02/28/16 Exam# [id number] Ordering Dr: Joseph Patton MD STUDY: CT [...] MD at 18:47 EDT , Service support [phone], CC: Roe Baxter; Joseph Mcgee MD Stogie Packer: Signed 25-Feb-2016 Emergency Department Summary Result: Comments: See Note; NOTES: [facility] Medical Records Department [address] [place] [address] Emergency Department Summary MR#: [id number] Acct: [id number] Name: MANDY MONTERO Rep #: [id number] : 1990 25 From: Tomás Willis MD [...] C: Roe Baxter MD T: NTS JOB: [id number] 02/25/161516 <Electronically signed by Tomás Willis MD> Date Tomás Willis MD Cosigner Signature (If Indicated): Date CC: Roe Baxter Date Dictated: 02/23/161520 Date Transcribed: 02/23/161520 Stogie Packer: Signed 23-Feb-2016 Discharge Instruction Result: Comments: See Note; NOTES: [facility] Medical Records Department [address] [place] [address] Discharge Instruction 02/23/161513 MR#: [id number] Acct: [id number] Name: MANDY MONTERO Rep #: [id number] : 1990 From: Tomás Willis MD PCP: [...] problems, contact your doctor. Call [facility] ([phone]) or report to the closest Emergency Room. Call 911 if necessary. 6 1516 <Electronically signed by Tomás Willis MD> Date Tomás Lazaro MD Cosigner Signature (If Indicated): Date CC: Roe Baxter 28-Jan-2016 Chest 1 View (Portable) Result: Comments: See Note; NOTES: [facility] Imaging Services [address] [place] [address] Verdana 4d Chest 1 View (Portable) MR#: [id number] Acct: [id number] Name: MANDY ACUNA Rep #: [id number] : 1990 F 25 From: Abdirahman Awad MD PCP: Linda Houston MD Status: PRE ER Study: Chest 1 View (Portable) Date of Exam: 01/28/16 Exam# [id number] Ordering Dr: Edita Willis MD STUDY: X-RAY [...] MD at 22:53 EDT , Service support [phone], RAD/Chest 1 View (Portable) IMPRESSION: Retrocar diac density in left lower lobe possibly representing atelectasis or infiltrate. Recommend lateral view for further assessment Electronically Signed: Abdirahman Awad MD at 22:53 EDT , Service support [phone], CC: Linda Houston MD; Tomás Willis MD Stogie Packer: Signed Family History Unknown Family Member Name [...] lb :43 Comments: [facility] Temperature 97 f Comments: Method: Temporal Pulse [...] Results Date Description Value Details :37 TSH (45328) Comments: PATIENT NOT FASTINGPERFORMED BY: IMT [address] [place] [address] [id number] BY: [employer] [id number] TSH 1.030 {uIU/mL} (Normal) Range: 0.450-4.500 46-Rrg-848740:37 T4, FREE (THYROXINE) Comments: PATIENT NOT FASTINGPERFORMED BY: IMT Rrknwl0106 [facility] [id number] BY: [employer] [id number] ([address]) T4,Free(Direct) 0.84 ng/dL (Normal) Range: 0.82-1.77 :37 T3, FREE (TRIDOTHYRONINE) Comments: PATIENT NOT FASTINGPERFORMED BY: IMT Omxoiy3774 [facility] [id number] BY: [employer] [id number] ([address]) Triiodothyronine (T3), Free 2.6 pg/mL (Normal) Range: 2.0-4.4 77-Deu-909205:37 CALCIFIDIOL (81553) VIT D Comments: PATIENT NOT FASTINGPERFORMED BY: [facility] Trflqx9792 [facility] [id number] BY: [address] [id number] 25 Vitamin D, 25-Hydroxy 42.6 ng/mL (Normal) Range: 30.0-100.0 Comments: Vitamin D deficiency has been defined by the [place] [facility] and an Endocrine Society practice guideline as alevel of serum 25-OH vitamin D less than 20 ng/mL (1,2).The Endocrine Society went on to further define vitamin Dinsufficiency as a level between 21 and 29 ng/mL (2).1. IOM ([place] [employer]). 2010. Dietary reference intakes for calcium and D. [place]: The National Academies Press.2. Gabbi MF, Singh [place], Pollo JOSEPH, et al. Evaluation, treatment, and prevention of vitamin D deficiency: an Endocrine Society clinical practice guideline. JCEM. 2010; 96(7):1911-30. 17-Jhm-464891:37 TRILEPTAL-OXCARBAZEPINE 162596 Comments: send results to dr delgado too; PATIENT NOT FASTINGPERFORMED BY: [employer] Idwotd5439 [facility] [id number] BY: [address] [id number] (09197) Oxcarbazepine 49 ug/mL (Abnormal) Range: 10-35 Comments: Detection Limit = 1 05-Nqv-806728:37 CBC with auto diff Comments: send results to dr delgado too; PATIENT NOT FASTINGPERFORMED BY: [facility] Vbkols0977 [facility] [id number] BY: [address] [id number] (66193) Immature Grans (Abs) 0.0 {x10E3/uL} (Normal) Range: [...] 3.77-5.28 WBC 6.3 {x10E3/uL} (Normal) Range: 3.4-10.8 04-Jgq-039647:37 METABOLIC PANEL, Comments: send results to dr delgado too; PATIENT NOT FASTINGPERFORMED BY: CB [facility] Xapekd3920 [facility] [id number] BY: BN [facility] [address] [id number] [facility] ([address]) ALT (SGPT) 38 [iU]/L (Abnormal) Range: 0-32 [...] 6-20 Glucose 237 mg/dL (Abnormal) Range: 65-99 37-Qpv-914666:37 HGB A1C (54154) Comments: PATIENT NOT FASTINGPERFORMED BY: CB [facility] Yhrndg7360 [facility] [id number] BY: BN [facility] [address] [id number] Hemoglobin A1c 6.3 % (Abnormal) Range: 4.8-5.6 Comments: . Prediabetes: 5.7 - 6.4 Diabetes: >6.4 Glycemic control for adults with diabetes: <7.0 46-Qbg-244357:00 Urinalysis, Complete Comments: How was Urine Obtained? [facility] [address] [place], [address] MUCUS, URINE 0 SEEN {/hpf} (Normal) BACTERIA [...] (Abnormal) CLARITY Clear (Normal) COLOR Yellow (Normal) 12-Rag-772738:50 Basic Metabolic Profile (BMP) Comments: [facility] [address] [place], [address] GAP 8 (Normal) Range: 5-15 CO2 28.0 [...] A.D.A. criteria.Please note revised GLUCOSE reference range gnxgajzru34/02/2018. 76-Flx-134582:50 CBC W/Diff, Automated Comments: [facility] [address] [place], [address] Absolute Lymph 1.52 {X10_3/ul} (Normal) [...] 4.2-5.4 WBC 6.0 K/mm3 (Normal) Range: 4.4-11.0 24-Vvw-27829:00 Lactic Acid Comments: Yes/No query for Sepsis Lactate Rule [facility] [address] [place], [address] LACTIC ACID 2.0 mmol/L (Normal) Range: 0.4-2.0 Comments: Critical Result(s) Called at: 18:33:30 01/24/2018 by:Yohana saenz [facility] 73-Wkf-864699:39 TSH (46613) Comments: PATIENT NOT FASTINGPERFORMED BY: [facility]6[address] [facility] [id number] BY: [address] [id number] TSH 1.150 {uIU/mL} (Normal) Range: 0.450-4.500 :39 METABOLIC PANEL, Comments: PATIENT NOT FASTINGPERFORMED BY: [place] [address] [facility] [id number] BY: [employer] [id number] COMPREHENSIVE (36364) ALT (SGPT) 18 [iU]/L (Normal) Range: 0-32 [...] Comments: PATIENT NOT FASTINGPERFORMED BY: CB [facility] Z[address]qxfr[address] [place] [id number] BY: BN [facility] Vdhfwlopmf0937 [facility] [id number] (67690) Immature Grans (Abs) 0.0 {x10E3/uL} (Normal) Range: [...] 3.77-5.28 WBC 6.6 {x10E3/uL} (Normal) Range: 3.4-10.8 13-Mbq-760558:39 TRILEPTAL-OXCARBAZEPINE 399538 Comments: PATIENT NOT FASTINGPERFORMED BY: [facility] Eccfmb4698 [address] Road[address]ublin [place] [id number] BY: Lab[address] [id number] ([address]) Oxcarbazepine 28 ug/mL (Normal) Range: 10-35 Comments: Detection Limit = 1 :39 CALCIFIDIOL (21073) VIT D Comments: PATIENT NOT FASTINGPERFORMED BY: [facility] Tqedgv6494 [address] Road[address]ublin [place] [id number] BY: Lab[address] [id number] 25 Vitamin D, 25-Hydroxy 56.3 ng/mL (Normal) Range: 30.0-100.0 Comments: Vitamin D deficiency has been defined by the [place] of[place] and an Endocrine Society practice guideline as alevel of serum 25-OH vitamin D less than 20 ng/mL (1,2).The Endocrine Society went on to further define vitamin Dinsufficiency as a level between 21 and 29 ng/mL (2).1. IOM ([place]). 2010. Dietary reference intakes for calcium and D. [place]: The National Academies Press.2. Gabbi MF, Singh [place], Pollo JOSEPH, et al. Evaluation, treatment, and prevention of vitamin D deficiency: an Endocrine Society clinical practice guideline. JCEM. 2010; 96(7):1911-30. 12-Ufp-659574:39 HGB A1C (70103) Comments: PATIENT NOT FASTINGPERFORMED BY: [facility] Wvhnst6337 [address] RoadDublin [place] [id number] BY: Lab[address] [id number] Hemoglobin A1c 5.7 % (Abnormal) Range: 4.8-5.6 Comments: . Pre-diabetes: 5.7 - 6.4 Diabetes: >6.4 Glycemic control for adults with diabetes: <7.0 :11 THROAT CULTURE (99138) Comments: PATIENT NOT FASTINGPERFORMED BY: [facility] Vdiaee2215 [address] RoadDublin [place] [id number] Information: SRC:TH Result 1 RRF (Normal) Comments: Routine respiratory jasper Upper Respiratory Culture Final report (Normal) :35 CBC W/Diff, Automated Comments: [facility] [address] [place], [place], [address] Absolute Lymph 1.23 {X10_3/ul} (Normal) Range: 0.83-4.51 [...] 4.2-5.4 WBC 4.9 K/mm3 (Normal) Range: 4.4-11.0 19-Xyy-552360:35 CRP Comments: [facility] [address] [place], [address] C-REACTIVE PROT < 2.90 mg/L (Normal) Range: 0.0-3.0 Comments: C-Reactive Protein (CRP) provides useful information for thediagnosis, therapy and monitoring of inflammatory processesand associated diseases. For the evaluation of Relative Riskfor Cardiovascular Dise ase, a High Sensitivity CRP (HSCRP)should be ordered. 9-Ifj-547451:15 Culture, Nose Comments: [facility] [address] [place], [address] CUN See Note (Normal) Comments: Comments: THICK [...] $ <=20 S(NF) indicates non-formulary drug at [facility]. Ap proval by Infectious Disease Specialist required before non-formulary drugs may be ordered and/or dispensed. Pseudomonas aeroginosa: REACTION Cefepime $ <=1 S Ceftazidime *NF 2 S Ciprofloxacin $ 2 I Gentamicin $ <=1 S Imipenem *NF 1 S Levofloxacin $ 4 I Piperacillin/Tazobactam $$ 8 S Tobramycin $ <=1 S(NF) rocky cates non-formulary drug at [facility]. Approval by Infectious Disease Specialist required before non-formulary drugs may be ordered and/or dispensed. 03-Aim-444546:34 LIPID PANEL (85831) Comments: PATIENT NOT FASTINGPERFORMED BY: CB [facility] Slqdee9194 [facility] [id number] BY: [facility] [address] [id number] LDL/HDL Ratio 1.5 {ratio_units} (Normal) Range: 0.0-3.2 Comments: LDL/HDL Ratio Men Women 1/2 Avg.Risk 1.0 1.5 Av g.Risk 3.6 3.2 2X Avg.Risk 6.2 5.0 3X Avg.Risk 8.0 6.1 LDL Cholesterol Calc 76 mg/dL (Normal) Range: 0-99 VLDL Cholesterol Dirk 17 mg/dL (Normal) Range: 5-40 HDL Cholesterol 50 mg/dL (Normal) Triglycerides 84 mg/dL (Normal) Range: 0-149 Cholesterol, Total 143 mg/dL (Normal) Range: 100-199 30-Jvg-672143:34 METABOLIC PANEL, Comments: PATIENT NOT FASTINGPERFORMED BY: CB [facility] Hvrwfm1396 [facility] [id number] BY: BN [facility] Irgptgmkce4845 [facility] [id number] [facility] ([address]) ALT (SGPT) 20 [iU]/L (Normal) Range: 0-32 [...] Glucose, Serum 137 mg/dL (Abnormal) Range: 65-99 36-Hix-069413:34 CBC with auto diff Comments: PATIENT NOT FASTINGPERFORMED BY: HARRIET [facility] Lvxcfa[address] [place] [id number] BY: [facility] [address] [id number] (57876) Immature Grans (Abs) 0.0 {x10E3/uL} (Normal) Range: [...] 3.77-5.28 WBC 4.5 {x10E3/uL} (Normal) Range: 3.4-10.8 92-Cbe-548701:34 TRILEPTAL-OXCARBAZEPINE 159049 Comments: PATIENT NOT FASTINGPERFORMED BY: [facility] Nsknqz1588 [facility] [id number] BY: [facility] [id number] (99177) Oxcarbazepine 23 ug/mL (Normal) Range: 10-35 Comments: Detection Limit = 1 :34 HGB A1C (05349) Comments: PATIENT NOT FASTINGPERFORMED BY: [facility] Iuwllf2088 [facility] [id number] BY: [facility] [address] [id number] Hemoglobin A1c 6.1 % (Abnormal) Range: 4.8-5.6 Comments: . Pre-diabetes: 5.7 - 6.4 Diabetes: >6.4 Glycemic control for adults with diabetes: <7.0 :34 CALCIFIDIOL (27101) VIT D Comments: PATIENT NOT FASTINGPERFORMED BY: [facility] Hahpis1506 [facility] [id number] BY: [facility] [id number] 25 Vitamin D, 25-Hydroxy 49.1 ng/mL (Normal) Range: 30.0-100.0 Comments: Vitamin D deficiency has been defined by the [place] of[place] and an Endocrine Society practice guideline as alevel of serum 25-OH vitamin D less than 20 ng/mL (1,2).The Endocrine Society went on to further define vitamin Dinsufficiency as a level between 21 and 29 ng/mL (2).1. IOM ([place]). 2010. Dietary reference intakes for calcium and D. [place]: The National Academies Press.2. Gabbi MF, Singh [place], Pollo JOSEPH, et al. Evaluation, treatment, and prevention of vitamin D deficiency: an Endocrine Society clinical practice guideline. JCEM. 2010; 96(7):1911-30. 56-Crh-442918:15 Culture, Throat Comments: [facility] [address] [place], [address] CUT See Note (Normal) Comments: Culture, ThroatMixed [...] $ <=20 S(NF) indicates non-formulary drug at [facility]. Approval by Inf tious Disease Specialist required before non-formulary drugs may be ordered and/or dispensed. 31-Mwc-94020:30 Culture, Wound Comments: [facility] [address] [place], [address] CUW See Note (Normal) Comments: Comments: COLLECTED [...] $ <=20 S(NF) indicates non-formulary drug at [facility]. Approval by Infectious Disease Specialist required before non-formulary drugs may be ordered and/or dispensed. Pseudomonas aeroginosa: REACTION Cefepime $ <=1 S Ceftazidime *NF <=1 S Ciprofloxacin $ 0.5 S Gentamicin $ <=1 S Imipenem *NF 1 S Levofloxacin $ 1 S Piperacillin/Tazobactam $$ 8 S Tobramycin $ <=1 S(NF) indicates non-formulary drug at [facility]. Approval b y Infectious Disease Specialist required before non-formulary drugs may be ordered and/or dispensed. :37 Base Excess ISTAT Comments: [place] [address] [place] [address] BE ISTAT 6 mmol/L (Abnormal) :37 Bicarbonate ISTAT Comments: [place] [address] [place] [address] HCO3 ISTAT 30 mmol/L (Abnormal) Range: 22-26 Comments: Site = R BrachialAllens Test = NAMode = A-CDevice = VentFIO2 = 40Results To = ED MDTime Given = 2350MV = 4.5VT = 250RR = 21PEEP = 7 :37 Blood Gas Specimen Type Comments: [place] [address] [place] [address] BLD GAS TYPE ART (Normal) 88-Qmj-630381:37 pCO2 - ISTAT 40.0 {mmHg} (Normal) Comments: [address] [place] [address] Range: 35-45 :37 pH - I-STAT 7.48 (Abnormal) Comments: [address] [place] [address] Range: 7.35-7.45 :37 PO2 I-STAT 65 {mmHG} (Abnormal) Comments: [address] [place] [address] Range: 75-100 09-Zhp-648503:37 SO2 ISTAT 94 % (Abnormal) Comments: [facility] LaboratoryPoint [place] [address] [address] [address] Range: 95-99 27-Nzo-216890:37 Total Carbon Dioxide ISTAT Comments: [facility] [place] [address] [place] [address] TOTAL CO2 ISTAT 31 mmol/L (Normal) 14-Uow-431795:55 Basic Metabolic Profile (BMP) Comments: [address] [place], [address] GAP 5 (Normal) Range: 5-15 CO2 [...] Range: 70-110 :55 CBC W/Diff, Automated Comments: [place] [place], [address] Absolute Lymph 1.51 {X10_3/ul} (Normal) Range: [...] 4.2-5.4 WBC 4.6 K/mm3 (Normal) Range: 4.4-11.0 4-Ozc-577565:52 Anaerobic and Aerobic Comments: PERFORMED BY: [facility] Dbsbvt9810 [facility] [id number] Information: buttock SRC:WO Culture Antimicrobial MIHEAD (Normal) [...] 72 hours. Anaerobic Culture Final report (Normal) 6-Yse-597977:39 CBC With Differential/Platelet Comments: PERFORMED BY: CB [facility] Swqgam7070 [facility] [id number] BY: BN [facility] [address] [id number] Immature Grans (Abs) 0.0 {x10E3/uL} (Normal) Range: [...] 3.77-5.28 WBC 5.1 {x10E3/uL} (Normal) Range: 3.4-10.8 6-Uuo-026438:39 Comp. Metabolic Panel Comments: PERFORMED BY: CB [facility] Uzyqek7128 [facility] [id number] BY: BN [facility] Yipkiokccb0795 [facility] [id number] (14) ALT (SGPT) 27 [iU]/L (Normal) Range: [...] 65-99 :39 Oxcarbazepine (Trileptal),S Comments: PERFORMED BY: [employer] [facility] [id number] BY: [address] [id number] Oxcarbazepine 24 ug/mL (Normal) Range: 10-35 Comments: Detection Limit = 1 :39 TSH 1.640 {uIU/mL} Comments: PERFORMED BY: [employer] [facility] [id number] BY: [address] [id number] (Normal) Range: 0.450-4.500 :39 Vitamin B12 and Folate Comments: PERFORMED BY: [employer] [facility] [id number] BY: [employer] [id number] Folate (Folic Acid), 8.0 ng/mL (Normal) Comments: A serum folate concentration of less than 3.1 ng/mL isconsidered to represent clinical deficiency. Serum Vitamin B12 1048 pg/mL Range: 211-946 (Abnormal) : Vitamin D, 40.7 ng/mL (Normal) Comments: PERFORMED BY: [employer] [facility] [id number] BY: [address] [id number] 25-Hydroxy Range: 30.0-100.0 Comments: Vitamin D deficiency has been defined by the [place] and an Endocrine Society practice guideline as alevel of serum 25-OH vitamin D less than 20 ng/mL (1,2).The Endocrine Society went on to further define vitamin Dinsufficiency as a level between 21 and 29 ng/mL (2).1. IOM ([place]). 2010. Dietary reference intakes for calcium and D. [place]: The National Academies Press.2. Gabbi MF, Singh MCKEON, Pollo JOSEPH, et al. Evaluation, treatment, and prevention of vitamin D deficiency: an Endocrine Society clinical practice guideline. JCEM. 2010; 96(7):1911-30. 49-Exb-208827:00 Urinalysis, Complete Comments: Order Date: 02/28/16How was Urine Obtained? [facility] [address]kpsrlq65[address] [place], [place], [id number] MUCUS, URINE RARE {/hpf} (Normal) BACTERIA 0 [...] CLARITY Sl. Cloudy (Normal) COLOR Yellow (Normal) 56-Gzi-650340:00 Basic Metabolic Profile (BMP) Comments: [facility] F[address]qrr[address] [place], [place], [address] GAP 8 (Normal) Range: 5-15 CO2 26.0 [...] 7-18 GLU 84 mg/dL (Normal) Range: 70-110 89-Vii-920005:00 CBC W/Diff, Automated Comments: [facility] [address]azg[address] [place], [place], [address] Absolute Lymph 1.11 {X10_3/ul} (Normal) Range: 0.83-4.51 [...] 4.2-5.4 WBC 5.5 K/mm3 (Normal) Range: 4.4-11.0 27-Rmp-988545:00 Lactic Acid Comments: [address] [place], [address] LACTIC ACID 1.6 mmol/L (Normal) Range: 0.4-2.0 :00 Lipase Comments: [address] [place], [place], [id number] LIPASE 177 U/L (Normal) Range: 73-393 :00 Liver Profile Comments: [address] [place], [address] D BILI 0.08 mg/dL (Normal) Range: [...] (Normal) Range: 6.4-8.2 :30 CDIFF (Molecular) Comments: [address] [place], [place], [id number] CDIFF See Note (Normal) Comments: Cdiff-MolecularC. Diff DNA Negative- No toxigenic C. Diff DNA Detected :30 ENTERIC PATHOGEN PANEL STOOL Comments: [address] [place], [id number] EP PANEL See Note (Normal) Comments: EP [...] DetectedRotavirus Not Detected :30 Stool Lactoferrin/WBC Comments: [facility] Cyskupbtdq35[address] [facility] [address] [place], [place], [id number] WBCST See Note (Normal) Comments: Stool Lacto/WBCFecal WBC Lactoferrin Negative: No Fecal WBC Lactoferrin present :30 Stool Occult Blood iFOB Comments: [facility] [address] [place], [address] STOB See Note (Normal) Comments: STOB iFOBOccult Blood Negative 93-Iea-841764:35 Urinalysis, Complete Comments: How was Urine Obtained? [facility] Eaaimqtpnx2142 [facility] [place], [address] MUCUS, URINE 0 SEEN {/hpf} [...] (Normal) CLARITY Cloudy (Normal) COLOR Yellow (Normal) 90-Fae-698553:00 CBC W/Diff, Automated Comments: [facility] R[address]okxcvada8[address] [place], [address] SMEAR COMMENT SCANNED (Normal) Comments: [...] 4.2-5.4 WBC 6.8 K/mm3 (Normal) Range: 4.4-11.0 05-Hpc-604096:00 Comprehensive Metabolic Profil Comments: [facility] Hevdelssta2779 [address] [place], [place], [address] GAP 9 (Normal) Range: 5-15 CO2 29.0 [...] 7-18 GLU 84 mg/dL (Normal) Range: 70-110 25-Wkh-541326:00 Lactic Acid Comments: [facility] Xdsmjbvytn0629 [facility]. [place], [place], [address] LACTIC ACID 2.6 mmol/L (Abnormal) Range: 0.4-2.0 62-Yct-754172:00 Partial Thromboplast Time Comments: [facility] [address]fxeuv[address] [place], [place], [address] PTT 26.7 s (Normal) Range: 24.1-36.2 70-Tcw-104045:00 Prothrombin Time w/INR Comments: [facility] Uhbqfnkgqt9[address] [place], [place], [address] INR 1.0 (Normal) PROTIME 13.1 s (Normal) Range: 11.7-14.9 20-Jan-20161:25 PREALBUMIN (89772) Comments: PERFORMED BY: [facility] Oekywi1947 [facility] [id number] Prealbumin 27 mg/dL (Normal) Range: 9-31 Comments: [...] - 36 >70 years 9 - 32 42-Jdb-547431:16 Clostridium difficile Toxin Comments: PERFORMED BY: [facility] Rulheg7835 [facility] [id number] A+B, EIA (43405) C difficile Toxins A+B, EIA Negative (Normal) 61-Yke-357161:00 Culture, Urine Comments: [facility] [address] [place], [place], [address] CUUR See Note (Normal) Comments: Urine CultureCulture exhibits no growth. 82-Zgf-271412:00 Urinalysis, Complete Comments: How was Urine Obtained? CLEAN [facility] [address]ljtjv[address] [place], [place], [address] MUCUS, URINE 0 SEEN {/hpf} (Normal) BACTERIA [...] CLARITY Sl. Cloudy (Normal) COLOR Yellow (Normal) 06-Nfu-869305:30 Culture, Urine Comments: [facility] [address] [place], [place], [address] CUUR See Note (Normal) Comments: Urine CultureORGANISM 1: Enterococcus faecalisColony Count >100,000 Enterococcus faecalis: REACTION Ampicillin $ <=2 S Benzylpenicillin NF 2 S Ciprofloxacin $ <=0.5 S Gentamicin SYN-S S Levofloxacin $ 1 S Linezolid $$$$ 2 S Nitrofurantoin $ <=16 S Streptomycin $ SYN- S S Tetracycline NF >=16 R Vancomycin $ 1 S(NF) indicates non-formulary drug at [facility]. Approval by Infectious Disease Specialist required before non-formulary drugs may be ordered and/or dispensed. * CLSI guidelines does not recommend testing of cephalosporins. This interpretation is deduced from Beta-lactam/penicillin results. 12-Ruf-775484:30 Urinalysis, Complete Comments: How was Urine Obtained? Urine, [facility] [address]zyw[address] [place], [place], [address] MUCUS, URINE 0 SEEN {/hpf} (Normal) BACTERIA [...] CLARITY Sl. Cloudy (Normal) COLOR Yellow (Normal) 61-Ewy-525830:00 ENTERIC PATHOGEN PANEL STOOL Comments: [facility] [address]tpzf[address] [place], [place], [address] EP PANEL See Note (Normal) Comments: RESULTS [...] DetectedVIBRIO Not DetectedNorovirus Not DetectedRotavirus Not Detected 09-Bot-452188:00 Stool Lactoferrin/WBC Comments: [facility] [address]cbsb[address] [place], [place], [address] WBCST See Note (Normal) Comments: RESULTS CALLED TO DR. HOUSTON 09/10/15 @1952 BY THADDEUS.Stool Lacto/WBCFecal WBC Lactoferrin Negative: No Fecal WBC Lactoferrin present 14-Zgd-999380:00 Stool Occult Blood iFOB Comments: [facility] [address] [place], [place], [address] STOB See Note (Normal) Comments: RESULTS CALLED TO DR. HOUSTON 09/10/15 @3 BY THADDEUS.STOB iFOBOccult Blood Negative 20-Jan-20161:29 CBC with auto diff Comments: PERFORMED BY: CB [facility] Qwdfax5953 [facility] [id number] BY: [facility] [address] [id number] ([address]) Immature Grans (Abs) 0.0 {x10E3/uL} (Normal) Range: [...] METABOLIC PANEL, Comments: PERFORMED BY: CB [facility] Fvugdq9461 [facility] [id number] BY: BN [facility] [address] [id number] [facility] (25211) ALT (SGPT) 17 [iU]/L (Normal) Range: 0-32 [...] 73 mg/dL (Normal) Range: 65-99 :29 CALCIFIDIOL (43870) VIT D Comments: PERFORMED BY: [employer] [facility] [id number] BY: [employer] [id number] 25 Vitamin D, 25-Hydroxy 39.5 ng/mL (Normal) Range: 30.0-100.0 Comments: Vitamin D deficiency has been defined by the [place] of[facility] and an Endocrine Society practice guideline as alevel of serum 25-OH vitamin D less than 20 ng/mL (1,2).The Endocrine Society went on to further define vitamin Dinsufficiency as a level between 21 and 29 ng/mL (2).1. IOM ([place]). 2010. Dietary reference intakes for calcium and D. [place]: The National Academies Press.2. Gabbi MF, Singh MCKEON, Pollo JOSEPH, et al. Evaluation, treatment, and prevention of vitamin D deficiency: an Endocrine Society clinical practice guideline. JCEM. 2010; 96(7):1911-30. :29 TRILEPTAL-OXCARBAZEPINE [id number] Comments: PERFORMED BY: [employer] [place] [id number] BY: [facility] Oesjyhfhvb5192 [facility] [id number] (285[address]) Oxcarbazepine 38 ug/mL (Abnormal) Range: 10-35 Comments: Detection Limit = 1 94-Txt-973586:30 CBC W/Diff, Automated Comments: [facility] [address]vkv[address] [place], [place], [address] Absolute Lymph 0.90 {X10_3/ul} (Normal) Range: 0.83-4.51 [...] 4.2-5.4 WBC 5.2 K/mm3 (Normal) Range: 4.4-11.0 17-Lbg-121461:30 Comprehensive Metabolic Profil Comments: [facility] [address]frvwaqjan4[address] [place], [address] GAP 8 (Normal) Range: 5-15 [...] 200 mg/dLsuggests DIABETES MELLITUS per A.D.A. criteria. 77-Jco-432182:30 Lipid Profile Comments: [facility] W[address]avt[address] [place], [address] VLDL 38 mg/dL (Normal) Range: [...] 200-240 mg/dL Borderline >240 mg/dL High Risk 56-Qkk-838349:30 Prealbumin Comments: [facility] Eq[address]acphl7[address] [place], [address] PREALBUMIN 26.0 mg/dL (Normal) Range: 20.0-40.0 43-Cog-378770:30 Thyroid Stim Hormone (TSH) Comments: [facility] V[address]npuxj[address] [place], [address] TSH 1.02 {uIU/mL} (Normal) Range: 0.358-3.74 19-Rds-013150:30 Trileptal-Oxcarbazepine Comments: [facility] (refer to report for specific site)refer to report for address and phone number TRILEPT [id number] 38 ug/mL (Abnormal) Range: 10-35 Comments: Detection Limit = 1Performed at: [facility] [address] [id number] Director: Reji Gibson MD, Phone: [phone] 04-Ojp-004103:30 Vitamin D,25 Hydroxy Comments: [facility] [address]aydnsq[address] [place], [address] Vitamin D 25-OH 38.4 ng/mL (Normal) Comments: Vitamin D 25(OH) Status Range Deficiency <20 ng/mL (50nmol/L) Insuffciency 20 - 30 ng/mL (50 - 75 nmol/L) Sufficiency 30 - 100 ng/mL (75 - 250 nmol/L) Toxicity >100 ng/mL (>250 nmol/L) 5-Pwt-538725:45 CBC-Complete Blood Cnt No Diff Comments: Test performed at:[facility] [address]qzxiv[address] [place] [address] MPV 10.5 fL (Normal) Range: 6.2-12.0 [...] 4.2-5.4 WBC 6.3 K/mm3 (Normal) Range: 4.4-11.0 9-Buo-271043:45 Comprehensive Metabolic Profil Comments: Is Patient Taking Vitamins or Folic Acid Supplements? NTest performed at:[facility] [address]fg[address] [place] [address] GAP 7 (Normal) Range: 5-15 CO2 29.0 [...] Vitamins or Folic Acid Supplements? NTest performed at:[facility] G[address]rmz[address] [place] [address] C-REACTIVE PROT < 2.90 mg/L (Normal) Range: 0.0-3.0 Comments: C-Reactive Protein (CRP) provides useful information for thediagnosis, therapy and monitoring of inflammatory processesand associated diseases. For the evaluation of Relative Riskfor Cardiovascular Dise ase, a High Sensitivity CRP (HSCRP)should be ordered. :45 Erythrocyte Sed Rate Comments: Test performed at:[facility] [address]yn[address] [place] [address] SED RATE 13 mm/h (Normal) Range: 0-20 :45 Folates, (Folic Acid) Comments: Is Patient Taking Vitamins or Folic Acid Supplements? NTest performed at:[facility] [address]av[address]ceq[address] [place] [address] FOLATES 15.70 ng/mL (Normal) Range: 3.1-17.5 :45 Free T3 Comments: Is Patient Taking Vitamins or Folic Acid Supplements? NTest performed at:[facility] [address]vfxl[address] [place] [address] FREE T3 2.4 pg/mL (Normal) Range: 2.18-3.98 :45 Miscellaneous Lab Procedure Comments: Test(s) Ordered: OXCARBAZEPINE, #[id number], RED TOP SERUM/RFTest performed at:[facility] [address]jsyf[address] [place] [address] MISC Comments: Oxcarbazepine (Trileptal), S Oxcarbazepine 35 ug/mL Ref: Detection Limit=1 TESTING PERFOR MED AT [facility] (Normal) rp. ORIGINAL REPORT ON FILE IN LAB CONTAINS ADDITIONAL TEST SITE INFORMATION. TEST 0-Pxp-020667:45 Prealbumin Comments: Is Patient Taking Vitamins or Folic Acid Supplements? NTest performed at:[facility] Osegprnenn3195 [facility] [place] [address] PREALBUMIN 30.9 mg/dL (Normal) Range: 20.0-40.0 :45 ,Serum,hCG Quali. Comments: Test performed at:[facility] Vkghnceawq2299 [facility] [place] [address] HCGSQUAL NEGATIVE {Negative} (Normal) Range: 0-9 Nonpreg HCG Qual triggr < 1 m[iU]/mL (Normal) :45 Prolactin Comments: Is Patient Taking Vitamins or Folic Acid Supplements? NTest performed at:[facility] Lbme[address]ngv[address] [facility] [place] [address] PROLACTIN 9.5 ng/mL (Normal) Comments: NORMAL REFERENCE RANGES FEMALE NON- 2.2 - 30.3 ng/mL 8.1 - 347.6 ng/mL POST-MENOPAUSAL 0.7 - 3 1.5 ng/mL MALE 2.5 - 17.4 ng/mLNEW TEST METHOD AND REFERENCE RANGES FEBRUARY 01, 201218-Dec-20141-Xmp-455122:45 T4 Free Direct Comments: Is Patient Taking Vitamins or Folic Acid Supplements? NTest performed at:[facility] Drfqxlxfpa[address] [facility] [place] [address] T4 FREE DIRECT 0.74 ng/dL (Abnormal) Range: 0.76-1.46 9-Xkd-087445:45 Thyroid Stim Hormone (TSH) Comments: Is Patient Taking Vitamins or Folic Acid Supplements? NTest performed at:[facility] [address] [place] [address] TSH 1.39 {uIU/mL} (Normal) Range: 0.358-3.74 9-Xhd-645217:45 Urinalysis, Routine (Dipstick) Comments: How was Urine Obtained? Urine, RandomTest performed at:[facility] [address]rgxphht[address] [place] [address] LEUK ESTERASE 500 /ul (Abnormal) OCCULT BLOOD-UR Negative /ul (Normal) NITRITE UR Negative (Normal) UROBILI Normal mg/dL (Normal) PROT DIPSTX Negative mg/dL (Normal) pH UR 8.0 (Normal) Range: 5.0 - 8.0 SP.GR. DIPSTX 1.010 (Normal) Range: 1.002-1.030 KETONE UR Negative mg/dL (Normal) BILIRUBIN URINE Negative mg/dL (Normal) GLUCOSE, UR Normal mg/dL (Normal) CLARITY Sl. Cloudy (Normal) COLOR Yellow (Normal) 1-Jjt-952998:45 Vitamin B12 1089 pg/mL (Abnormal) Comments: Test performed at:[facility] Cswwdxzdee[address] [place] [address] Range: 211-911 6-Eez-729994:45 Vitamin D,25 Hydroxy Comments: Test performed at:[facility] Vtdbmegnsh[address] [place] [address] Vitamin D 25-OH 23.9 ng/mL (Normal) Comments: Vitamin D 25(OH) Status Range Deficiency <20 ng/mL (50nmol/L) Insuffciency 20 - 30 ng/mL (50 - 75 nmol/L) Sufficiency 30 - 100 ng/mL (75 - 250 nmol/L) Toxicity >100 ng/mL (>250 nmol/L) 49-Txw-188524:43 ALBUMIN SERUM (20135) Comments: PATIENT NOT FASTINGPERFORMED BY: [facility] Ghlcua3133 [facility] [id number] Albumin, Serum 4.7 g/dL (Normal) Range: 3.5-5.5 15-Rhi-520268:43 PREALBUMIN (53299) Comments: PATIENT NOT FASTINGPERFORMED BY: [facility] Qyqstp5146 [facility] [id number] Prealbumin 29 mg/dL (Normal) Range: 20-40 20-Ihf-557168:21 ANJELICA CULTURE-OTHER (34999) Comments: PATIENT NOT FASTINGPERFORMED BY: [facility]6370 [facility] [id number] Information: SRC:THRT [id number] Result 1 RRF (Normal) Comments: Routine respiratory jasper Upper Respiratory Culture Final report (Normal) 73-Atu-083741:43 PROLACTIN (80896) Comments: PATIENT NOT FASTINGPERFORMED BY: [facility] Ssheat4460 [facility] [id number] Prolactin 13.8 ng/mL (Normal) Range: 4.8-23.3 60-Xbl-059670:43 T3, FREE (TRIDOTHYRONINE) (11116) Comments: PATIENT NOT FASTINGPERFORMED BY: [facility] Wnkwrd4067 [facility] [id number] Triiodothyronine,Free,Serum 3.3 pg/mL (Normal) Range: 2.0-4.4 09-Rzn-471329:43 T4, FREE (THYROXINE) (82976) Comments: PATIENT NOT FASTINGPERFORMED BY: [facility]CoJ[facility] InstituteNuernh4145 [facility] [id number] T4,Free(Direct) 1.14 ng/dL (Normal) Range: 0.82-1.77 71-Dgh-725933:43 TSH (93248) Comments: PATIENT NOT FASTINGPERFORMED BY: [facility]6370 [facility] [id number] Information: [id number] TSH 1.580 {uIU/mL} (Normal) Range: 0.450-4.500 90-Vap-151190:00 CBCD ANC 1.8 {X10_3/uL} (Abnormal) Range: 2.0-7.7 [...] CDIFF See Note (Normal) Comments: FAXED TO GF0.434 C. Diff DNA Positive-Toxigenic C. Difficile DNA [...] spora, or Mi crosporidia. TESTING PERFORMED AT [facility]. ORIGINAL REPORT ON FILE IN LAB [...] Detected :55 Oxcarbazepine (Trileptal),S Comments: PERFORMED BY: [address] [id number] BY: [address] [id number] Oxcarbazepine 32 ug/mL (Normal) Range: 10-35 Comments: Detection Limit = 1 :55 CALCIFIDIOL (94004) VIT D Comments: PERFORMED BY: [facility] CampusNetasq[address] [id number] BY: [address] [id number] 25 Vitamin D, 25-Hydroxy 27.4 ng/mL (Abnormal) Range: 30.0-100.0 Comments: Vitamin D deficiency has been defined by the [place] of[place] and an Endocrine Society practice guideline as alevel of serum 25-OH vitamin D less than 20 ng/mL (1,2).The Endocrine Society went on to further define vitamin Dinsufficiency as a level between 21 and 29 ng/mL (2).1. IOM ([place]). 2010. Dietary reference intakes for calcium and D. [place]: The National Academies Press.2. Gabbi MF, Singh MCKEON, Pollo JOSEPH, et al. Evaluation, treatment, and prevention of vitamin D deficiency: an Endocrine Society clinical practice guideline. JCEM. 2010; 96(7):1911-30. 8-Lvl-315663:55 Folate (45213) Comments: PERFORMED BY: [employer] Horcat9836 [facility] [id number] BY: [address] [id number] Folate (Folic Acid), Serum 16.3 ng/mL (Normal) Comments: A serum folate concentration of less than 3.1 ng/mL isconsidered to represent clinical deficiency. 8-Lff-956395:55 VITAMIN B-12 (CYANOCOBALAMIN) Comments: PERFORMED BY: EVRGR70 [facility] [id number] BY: [address] [id number] (49717) Vitamin B12 889 pg/mL (Normal) Range: 211-946 :55 TSH (43444) Comments: PERFORMED BY: [employer] [facility] [id number] BY: [address] [id number] TSH 1.670 {uIU/mL} (Normal) Range: 0.450-4.500 :55 SED RATE ERYTHROCYTE Comments: PERFORMED BY: [employer] [facility] [id number] BY: [address] [id number] (55290) Sedimentation Rate-Westergren 6 mm/h (Normal) Range: 0-32 7-Uto-248936:55 METABOLIC PANEL, Comments: PERFORMED BY: [employer] Rtzbbw0322 [facility] [id number] BY: [address] [id number] COMPREHENSIVE (45715) ALT (SGPT) 11 [iU]/L (Normal) Range: 0-32 [...] cells when received.This may adversely affect serumChemistries. 2-Znz-102201:55 C-REACTIVE PROTEIN (12517) Comments: PERFORMED BY: [employer] Jhacdo6970 [facility] [id number] BY: [address] [id number] C-Reactive Protein, Quant 0.9 mg/L (Normal) Range: 0.0-4.9 :55 CBC (AUTO) (09255) Comments: PERFORMED BY: [employer] Melpih0596 [facility] [id number] BY: [address] [id number] Platelets 213 {x10E3/uL} (Normal) Range: 140-415 Comments: [...] of these values in the reference population. 5-Qdy-177027:29 ANJELICA CULTURE-OTHER (93424) Comments: PATIENT NOT FASTINGPERFORMED BY: [facility]6370 [facility] [id number] Information: SRC:THRT [id number] Result 1 RRF (Normal) Comments: Routine respiratory jasper Upper Respiratory Culture Final report (Normal) 4-Atx-174725:03 Rapid Strep Test, Office (85925) Rapid Strep Test, Negative (Normal) Office 66-Pzk-932772:55 CDIF See Note (Normal) Comments: A positive [...] these cases. C. DIFF ANTIGENS NEGATIVE :55 [facility] URC Culture exhibits no growth. (Normal) [...] Comments: C. DIFF ANTIGENS NEGATIVE :2 TRILEPT [id number] 20 ug/mL (Normal) Range: 10-35 4 Comments: Detection Limit = 1Performed at: BN - [facility] [address] [id number] Director: Reji Gibson MD, Phone: [phone] 47-Yly-766521:1 C DIF TOXIN/AG See Note (Normal) Comments: RESULTS CALLED TO 06/23/112004 VONDA ELAM.REPORT READ BACK BY SAME . * This is an amended result. * A 5 prior result that was reported as final has been changed.06/23/112004 by IESHAPreviously reported as: C. DIFF ANTIGENS POSITIVE 52-Fsx-656867:46 COMP METABOLIC GAP 11 (Normal) Range: 5-15 [...] Cyclospora, or Microspo ridia. TESTING PERFORMED AT [facility]. ORIGINAL REPORT ON FILE IN LAB [...] Cyclospora, or Microspo ridia. [facility] ORIGINAL REPORT ON FILE IN LAB CONTAINS ADDITIONAL TEST SITE INFORMATION. OVA/ PARASITES EXAM NO OVA, CYSTS, OR PARASITES FOUND. :20 WBC,STOOL See Note (Normal) Comments: FECAL WBCs NONE SEEN 52-Cpa-546512:14 C DIF TOXIN See Note (Normal) 98-Veg-825261:44 O AND P See Note (Normal) Comments: OVA AND PARASITES EXAM, ROUTINE These results were obtained using wet preparation(s) and trichrome stained smear. This test does not include testing for Crytosporidium parvum, Cyclospora, or Microspo ridia. [facility] ORIGINAL REPORT ON FILE IN LAB [...] Cyclospora, or Microspo ridia. TESTING PERFORMED AT [facility]. ORIGINAL REPORT ON FILE IN LAB [...] diabetes mellitus, well controlled Convulsions : Reviewed Lace Finisher Letter Indication: Convulsions Neuromuscular scoliosis : Follow [...] Cystitis, acute Planned Observations URINE ANJELICA CULTURE-IDENTIFICATN ([id number])Indication: Abnormal urine On: 3-Suz-197304:25 Request MRSA Culture ([id number])Indication: Thick sputum On: 1-Vls-939882:32 Request Anaerobic & Aerobic Culture ([id number])Indication: Thick sputum On: 53-Gmh-025754:46 Request Comments: collected from trachea stoma Anaerobic & Aerobic Culture ([id number])Indication: Cellulitis of groin, right On: 2-Dau-564564:44 Request TRILEPTAL-OXCARBAZEPINE [id number] ([id number])Indication: Diarrhea On: 6-Nfr-648764:24 Request VITAMIN B12 AND FOLATES (23753)Indication: Diarrhea On: 1-Hfj-400431:24 Request CALCIFEDIOL (24953)Indication: Diarrhea On: 8-Kvl-637986:24 Request CALCIFEDIOL ([id number])Indication: Diarrhea On: 6-Nql-151995:23 Request TSH (THYROID STIMULATING HORMONE) ([id number])Indication: Diarrhea On: : Request METABOLIC PANEL, COMPREHENSIVE (02160)Indication: Diarrhea On: : Request CBC, PLATELETS & AUT DIFF (64550)Indication: Diarrhea On: : Request OVA & PARASITE DIR SMEAR (13361)Indication: Diarrhea On: :46 Request ANJELICA CULTURE-STOOL (56714)Indication: Diarrhea On: :46 Request OCCULT BLOOD FECES SCREEN (52207)Indication: Diarrhea On: :46 Request LEUKOCYTE COUNT, FECAL (80565)Indication: Diarrhea On: :46 Request C-DIFFICILE, STOOL (72453)Indication: Diarrhea On: :46 Request OVA & PARASITE DIR SMEAR (54329)Indication: C. difficile diarrhea On: :50 Request OCCULT BLOOD FECES SCREEN (58502)Indication: C. difficile diarrhea On: :50 Request ANJELICA CULTURE-STOOL (31146)Indication: C. difficile diarrhea On: :50 Request LEUKOCYTE COUNT, FECAL (46963)Indication: C. difficile diarrhea On: :50 Request C-DIFFICILE, STOOL (87482)Indication: C. difficile diarrhea On: :49 Request Clostridium difficile Culture (37684)Indication: Diarrhea On: 6-Lux-679960:52 Request URINALYSIS, W/ MICRO (41498)Indication: Dysuria On: :56 Request URINE ANJELICA CULTURE-SISSY COL COUNT (30941)Indication: Dysuria On: :54 Request OCCULT BLOOD FECES SCREEN (22659)Indication: Diarrhea On: :01 Request LEUKOCYTE COUNT, FECAL (04994)Indication: Diarrhea On: :05 Request ANJELICA CULTURE-STOOL (15061)Indication: Diarrhea On: :05 Request Clostridium difficile Toxin A+B, EIA (36314)Indication: Diarrhea On: :05 Request TRILEPTAL-OXCARBAZEPINE [id number] ([id number])Indication: Convulsions On: 27-Lbt-834757:55 Request PREALBUMIN (83440)Indication: Nutritional assessment On: :45 Request CALCIFIDIOL (17413) VIT D 25Indication: Vitamin D deficiency On: :44 Request TSH ([id number])Indication: Hypertension On: :44 Request METABOLIC PANEL, COMPREHENSIVE (62649)Indication: Hypertension On: :44 Request LIPID PANEL (57034)Indication: Hypertension On: :44 Request CBC with auto diff (28750)Indication: Hypertension On: :44 Request Metabolic Panel, Basic (74590)Indication: Abnormal urine On: :03 Request VITAMIN B12 AND FOLATES (24093)Indication: Abnormal urine On: :03 Request CALCIFEDIOL (70950)Indication: Abnormal urine On: :03 Request Comments: vit d3 URINE ANJELICA CULTURE-SISSY COL COUNT (43952)Indication: Abnormal urine On: 5-Stk-071816:52 Request TRILEPTAL-OXCARBAZEPINE [id number] (35156)Indication: Cerebral palsy On: 47-Ppz-403850:46 Request HCG Qualitative, Serum (97895)Indication: Amenorrhea On: 64-Bpb-669021:45 Request PROLACTIN (11670)Indication: Amenorrhea On: 92-Ptx-522518:44 Request PREALBUMIN (53716)Indication: Cerebral palsy On: 24-Lyi-412429:43 Request URINALYSIS (35118)Indication: Fatigue On: :43 Request T3, FREE (TRIDOTHYRONINE) (20894)Indication: Fatigue On: :43 Request T4, FREE (THYROXINE) (63679)Indication: Fatigue On: :43 Request Folate (26742)Indication: Fatigue On: 84-Cpl-628294:42 Request CALCIFIDIOL (69887) VIT D 25Indication: Fatigue On: :42 Request VITAMIN B-12 (CYANOCOBALAMIN) (36997)Indication: Fatigue On: 66-Pyo-845944:42 Request TSH (00546)Indication: Fatigue On: 51-Yrc-729175:42 Request SED RATE ERYTHROCYTE (05744)Indication: Fatigue On: 21-Ves-031624:42 Request METABOLIC PANEL, COMPREHENSIVE (80255)Indication: Fatigue On: 30-Aeq-675814:42 Request C-REACTIVE PROTEIN (80623)Indication: Fatigue On: :42 Request CBC (AUTO) (67657)Indication: Fatigue On: :42 Request CULTURE,BODY FLUID (81145)Indication: Irregular Menstrual Cycle (Renamed from Irregular bleeding) On: 89-Ysr-890129:07 Request Comments: urine Rapid Strep Test, Office (88757)Indication: Pharyngitis, acute On: 96-Afd-163740:51 Request Urinalysis, Office (40624)Indication: Fatigue On: 44-Msd-704349:49 Request HgA1C , Office (69163)Indication: Hyperglycemia On: 86-Tas-539183:41 Request CALCIFIDIOL (60604) VIT D 25Indication: Vitamin D deficiency On: 48-Yyg-890600:32 Request TRILEPTAL-OXCARBAZEPINE [id number] (41987)Indication: Convulsions On: :31 Request Metabolic Panel, Comprehensive (04342)Indication: Acute renal failure On: :31 Request CBC with manual diff ([id number])Indication: Hypertension On: :31 Request CBC with manual diff (85843)Indication: Thrombocytopenia, unspecified On: :35 Request Comments: in citrate tube FIBRINOGEN (58015)Indication: Thrombocytopenia, unspecified On: :35 Request PTT (Activated Partial Thromboplastin Time) (34127)Indication: Thrombocytopenia, unspecified On: :35 Request PT (Prothrobim Time) (61309)Indication: Thrombocytopenia, unspecified On: :35 Request HEPATITIS C ANTIBODY (23160)Indication: Thrombocytopenia, unspecified On: :35 Request HEPATITIS B CORE ANTBD-IGG/IGM (61968)Indication: Thrombocytopenia, unspecified On: :35 Request HEPATITIS B SURFACE ANTIGEN (98688)Indication: Thrombocytopenia, unspecified On: :35 Request HEPATITIS B SURFACE ANTIBODY (03795)Indication: Thrombocytopenia, unspecified On: :35 Request Methylmalonic acid, serum 89742Izjfmhmbzy: Thrombocytopenia, unspecified On: :35 Request Vitamin B-12 (cyanocobalamin) (60377)Indication: Thrombocytopenia, unspecified On: :35 Request Sed Rate Erythrocyte (94580)Indication: Thrombocytopenia, unspecified On: :35 Request Metabolic Panel, Comprehensive (58588)Indication: Thrombocytopenia, unspecified On: :35 Request JENNY (ANTINUCLEAR ANTIBODY) (66909)Indication: Thrombocytopenia, unspecified On: : Request CBC with manual diff (25801)Indication: Convulsions On: 98-Eeu-086442:31 Request Clostridium difficile Toxin A+B, EIA (48688)Indication: Diarrhea On: :31 Request OVA & PARASITE DIR SMEAR (24374)Indication: Diarrhea On: :44 Request OCCULT BLOOD FECES SCREEN (68610)Indication: Diarrhea On: :44 Request LEUKOCYTE COUNT, FECAL (90836)Indication: Diarrhea On: :44 Request ANJELICA CULTURE-STOOL (28622)Indication: Diarrhea On: :44 Request Clostridium difficile Toxin A+B, EIA (22716)Indication: Diarrhea On: 01-Qcy-634193:22 Request C DIFF AMPLIFIED PROBE (30126)Indication: Diarrhea On: 60-Zht-31996:51 Request Metabolic Panel, Comprehensive (62581)Indication: Acute renal failure On: :08 Request Comments: recheck prior to August. CALCIFIDIOL (37950) VIT D 25Indication: Vitamin D deficiency On: :08 Request Comments: recheck prior to August. TRILEPTAL-OXCARBAZEPINE [id number] (87406)Indication: Convulsions On: :08 Request Culture, Stool ([id number])Indication: Diarrhea On: 17-Pvk-150008:01 Request C DIFF AMPLIFIED PROBE (89345)Indication: Diarrhea On: 78-Coh-576649:01 Request C DIFF AMPLIFIED PROBE (28783)Indication: Diarrhea On: 81-Mos-552633:32 Request C DIFF AMPLIFIED PROBE (97691)Indication: Diarrhea On: 46-Wdj-073446:51 Request URINE ANJELICA CULTURE-IDENTIFICATN (36173)Indication: Backache On: 7-Umr-231533:58 Request URINALYSIS (99704)Indication: Backache On: 8-Hbr-764994:58 Request Metabolic Panel, Comprehensive (46911)Indication: Profound mental retardation (Renamed from IQ under 20) On: 6-Drp-173359:25 Request Comments: Dr Pino neurologist at [facility] CBC (Auto) (04405)Indication: Profound mental retardation (Renamed from IQ under 20) On: 4-Lnk-993921:25 Request TRILEPTAL-OXCARBAZEPINE 068591 (37973)Indication: Cerebral palsy On: 8-Lzh-050305:24 Request COLUMN CHROMATOGRAPHY, SISSY, SINGLE (09104)Indication: Convulsions On: 69-Mai-185173:54 Request Comments: trileptal [id number] Clostridium difficile Toxin A+B, EIA (32193)Indication: Diarrhea On: 98-Ime-754738:26 Request CBC (Auto) (05931)Indication: Convulsions On: 37-Rjm-340497:25 Request Metabolic Panel, Comprehensive (70520)Indication: Convulsions On: 25-Ipv-328246:24 Request ANJELICA CULTURE-OTHER (42359)Indication: Pharyngitis, acute On: 0-Bxm-132293:44 Request C.Difficile, Stool (92626)Indication: Diarrhea On: 29-Noe-460847:48 Request ANJELICA CULTURE-STOOL (57890)Indication: Diarrhea On: :55 Request C.Difficile, Stool (54453)Indication: Diarrhea On: :54 Request LEUKOCYTE COUNT, FECAL (66822)Indication: Diarrhea On: 78-Cfn-282846:27 Request OVA & PARASITE DIR SMEAR (62416)Indication: Diarrhea On: 29-Her-255664:27 Request C.Difficile, Stool (95586)Indication: Diarrhea On: 64-Agf-235590:27 Request ANJELICA CULTURE-STOOL (38928)Indication: Diarrhea On: 04-Mtq-944643:27 Request TSH (73057)Indication: Unspecified bacterial pneumonia On: :48 Request CBC, Platelets & Auto Diff (26532)Indication: Unspecified bacterial pneumonia On: :48 Request Magnesium (62037)Indication: Unspecified bacterial pneumonia On: :48 Request Phosphorus (44501)Indication: Unspecified bacterial pneumonia On: :48 Request Metabolic Panel, Basic (33256)Indication: Unspecified bacterial pneumonia On: :48 Request Planned Encounters Medical; 4 Month FU - On: 10-Oct-2018 13:15 [facility] Sandra Bermudez DO, DO, Kathleen Planned Procedures Flu Vaccine (Quadrivalent) On: 06-Jun-2018 Intent 42681Om: Sandra Bermudez DO Comments: Lot #[id number]-L dltd, IMDose prefilled syringegiven by:MARICARMNE Santana reviewed and ABN signed Sandra Bermudez DO Flu Vaccine (Quadrivalent) On: 02-Aug-2017 Intent 76139Ms: Sandra Bermudez DO Comments: Lot:[id number]:12/29Amt:0.5mlRoute:IMSite: Rt DltdGiven By: ALFREDITO James signed Sandra Bermudez DO Flu Vaccine (Quadrivalent) On: 14-May-2016 Intent 61795Uy: Roe Baxter MD Comments: Lot #[id number]-L dltd, IMDose prefilled syringegiven by:ALFERDITO Goldberg and ABN signed ADMINISTRATION OF INFLUENZA On: 02-Aug-2015 Intent VIRUS VACCINE (G0008)By: Linda Houston MD Flu Vaccine (Quadrivalent) On: 02-Aug-2015 Intent 21877Hi: Linda Houston MD Comments: Lot #:[id number] date:Amount given:0.5mlRoute: IMSite given:L DltdGiven by: Jessica BASSETT and ABN signed Quad Flu ELECTROCARDIOGRAM, COMPLETE On: 21-Mar-2015 Intent (ECG) (39916)By: Linda Houston MD CT - Brain/Head (IV Contrast On: 29-Nov-2014 Intent Needed)By: Linda Houston MD ADMINISTRATION OF INFLUENZA On: 06-Aug-2014 Intent VIRUS VACCINE (G0008)By: TIMBO Villegas Flu Vaccine (Quadrivalent) On: 06-Aug-2014 Intent 73851Hl: TIMBO Villegas Comments: Lot #:[id number] date:mount given:0.5mlRoute: IM Site given:Given by: to be given per patient home health nurse CATHETERIZE FOR URINE SPEC On: 09-Mar-2014 Intent (P9612)By: Linda Houston MD Comments: pls use pediatric cath- and fax results to [phone] SPECIMEN HNDLNG/TRNSPRT, OFFC > On: 09-Mar-2014 Intent LAB (80862)By: Linda Houston MD IMMUNIZ ADMNIN, 1 VAC, On: 28-Jul-2013 Intent SNGL/COMBO (88550)By: Archie BOLDEN, Comments: Lot #[id number] to nurse for admin Jessica Stack FLU VAC, SPLIT, >3 YEARS, On: 28-Jul-2013 Intent INTRAMUSC (00319)By: Jessica Almanza LPN SPECIMEN HNDLNG/TRNSPRT, OFFC > On: 18-May-2013 Intent LAB (71430)By: Linda Houston MD Eprescribed prescriptions On: 18-May-2013 Intent (G8553)By: Jessica Almanza LPN FLU VAC, SPLIT, >3 YEARS, On: 23-Jun-2011 Intent INTRAMUSC (36082)By: Archie BOLDEN, Comments: Lot #[id number]-L arm, IMDose prefilledgiven by:Jessica Stack IMMUNIZ ADMNIN, 1 VAC, On: 23-Jun-2011 Intent SNGL/COMBO (25455)By: Jessica Almanza LPN Instructions Name Dates Details [...] for the procedure will be Dr Beck [facility]. The chief complaint is teeth cleanin [...]
--- OUTSIDE RECORDS SUMMARY | 2018-10-08 11:36 | XMS RPT_ITS | Continuity of Care Document ---
:1990 Author Organization [facility] Address [address] [place] [address] Phone Care Team Providers Name Role Phone [...] Propionate 50 MCG/ACT Nasal Suspension 2 (two) Edson(s) Edson(s) each nostril qd for 90 days Quantity: [...] Houston MD Start : 20-Jan-2016 Active Nyamyc 832225 UNIT/GM External Powder uad Powder to affected area(s) bid and prn for 0 days Quantity: 15 {Bottle} Refills: 6 Ordered:19-Nov-2017 Karin Bermudez DO, DO, Kathleen Start : 19-Nov-2017 End : 17-Nov-2013 Active Nystatin 671006 UNIT/GM External Cream uad Cream to affected area(s) bid prn for 7 days Quantity: 1 {Bottle} Refills: 3 Ordered:03-Jun-2018 Karin Bermudez DO, DO, Kathleen Start : 03-Jun-2018 Active Nystatin 954675 UNIT/ML Mouth/Throat Suspension 5 ml ml 5 times day for 10 days Quantity: 250 {Milliliter} Refills: 9 Ordered:03-Apr-2016 Jessica Almanza LPN Start : 03-Apr-2016 Active Nystatin Powder 1 Powder Powder tid for 10 days Quantity: 1 {Bottle} Refills: 3 Ordered:28-Jun-2017 Karin Bermudez DO, DO, Kathleen Start : 28-Jun-2017 Active Pen Loiza 31G X 5 MM Miscellaneous 1 (one) [...] for 0 days Refills: 0 Ordered:23-Jun-2011 Long MEMBERSHIP ADMINISTRATOR, Jessica L End : 23-Jun-2011 Inactive LevoFLOXacin [...] for 0 days Refills: 0 Ordered:23-Jun-2011 Long MEMBERSHIP ADMINISTRATOR, Jessica L End : 23-Jun-2011 Inactive MUCINEX FOR KIDS, 100MG/5ML (Oral Liquid) Liquid 15 cc tid 14 days for 0 days Refills: 0 Ordered:23-Jun-2011 Long MEMBERSHIP ADMINISTRATOR, Jessica L Start : 13-Jun-2009 End : [...] nostril qd for 0 days Quantity: 1 {Edson} Refills: 3 Ordered:09-Apr-2015 Linda Houston MD Start : 09-Apr-2015 End : 20-Jan-2016 Discontinued Comments:This order discontinued per [employer]. MUCOMYST, 20% (Inhalation Solution) 1 bid/prn for 0 days Refills: 0 Ordered:23-Jun-2011 Long MEMBERSHIP ADMINISTRATOR, Jessica L End : 23-Jun-2011 Discontinued Comments:This order discontinued per [employer]. VYTONE, 1-1% (External Cream) Cream bid for 0 days Quantity: 1 {Cream} Refills: 3 Ordered:13-Jun-2009 Long MEMBERSHIP ADMINISTRATOR, Jessica L Start : 13-Jun-2009 End : [...] Comments: See Note; NOTES: [facility] [address] [place] [address] OFFICE VISIT Date of Service: 05/25/18 MR#: [id number] Acct: [id number] Name: MIGUEL MANDY Rickey Rep #: [id number] : 1990 Provider: Lawrence Weiner MD Age/Sex: 28/F Location: [facility] Status: Signed Assessment AND Plan Problems 1. [...] Result: Comments: See Note; NOTES: [facility] Medical Records Department [address] [place] [address] Emergency Department Summary 01/24/18 1645 MR#: [id number] Acct: [id number] Name: MANDY MONTERO Rep #: [id number] : 1990 27 From: Stephan Hughes MD [...] Discharged to home Impression: 1. Cellulitis left [facility] region 2. Dysuria of unknown etiology 3. History of MRDD 4. History of Propulsid 5. History of chronic respiratory failure on ventilator This note was generated with [employer] software. It m ay contain incorrect words, [...] Instructions: Mandy prescription was electronically transmitted to [facility], your [facility] pharmacy What to do if you have Problems For any increased pain, shortness of breath, bleeding, nausea or vomiting, chest pain, or any unexpected problems, contact your Primary Care Provider. Call [facility] ([phone]) or report to the closest Emergency Room. Call 911 if necessary. 01/24/18 9110 <Electronically signed by Stephan Hughes MD> Date Stephan Hughes MD Cosigner Signature (If Indicated): Date CC: Sandra Lara DO 10-Dec-2017 Pulmonary Visit Report Result: Comments: See Note; NOTES: [facility] [place] [address] [place] [address] OFFICE VISIT Date of Service: 12/09/17 MR#: [id number] Acct: [id number] Name: MANDY MONTERO Rep #: [id number] : 1990 Provider: Lawrence Weiner MD Age/Sex: 27/F Location: [facility] Status: Signed Assessment AND Plan 1. [...] Comments: See Note; NOTES: [facility] [place] [address] [place] [address] OFFICE VISIT Date of Service: 09/02/17 MR#: [id number] Acct: [id number] Name: MANDY MONTERO Rep #: [id number] : 1990 Provider: Lawrence Weiner MD Age/Sex: 27/F Location: [facility].PM[facility] Status: Signed Assessment AND Plan 1. Spastic [...] mg (10 mL) PO QDAY PRN allergy njzswkdlY32 .2 Ok to give through PEG Follow Up 3 Months ([facility]) HPI 6 M FU: Chief Complaint: Increased secretions Details: Patient is a 27-year-old female who presents for evaluation secondary to incre ased secretions. Since last visit, patient's mother denies any ER visits, hospitalizations or prednisone burst. Patient does suffer from cerebral palsy and is unable to answer for herself. Patient pres ents on a cot with her mother and healthcare assistant real estate manager. Family reports the patient has had [...] Result: Comments: See Note; NOTES: [facility] Medical Records Department [address] [place] [address] Emergency Department Summary MR#: [id number] Acct: [id number] Name: MANDY MONTERO Rep #: [id number] : 1990 26 From: Flip Jessica MD [...] . Flip Jessica MD T: NTS JOB: [id number] 03/10/17805 <Electronically signed by Flip Jessica MD> Date Flip Jessica MD Cosigner Signat ure (If Indicated): Date CC: Sandra Bermudez DO Date Dictated: 03/06/171722 Date Transcribed: 03/06/171722 Optical Goods Worker: Signed 06-Mar-2017 Discharge Instruction Result: Comments: See Note; NOTES: [facility] Medical Records Department [address] [place] [address] Discharge Instruction 03/06/171719 MR#: [id number] Acct: [id number] Name: ROMELIA MONTERO Rep #: [id number] : 1990 26 From: Flip Jessica MD [...] your Primary Care Provider. Call Doctors [facility] ([phone]) or report to the closest Emergency Room. Call 911 if necessary. 03/06/171719 <Electronically signed by Flip Jessica MD> Date Flip Jessica MD Cosigner Signature (If Indicated): Date CC: Sandra Bermudez DO 06-Mar-2017 Chest 1 View Result: Comments: See Note; NOTES: [facility] Imaging Services [address] [place] [address] Verdana 4d Chest 1 View MR#: [id number] Acct: [id number] Name: MANDY MONTERO Rep #: [id number] : 1990 F 26 From: Merritt Bolton MD PCP: Sandra Bermudez DO Status: REG ER Study: Chest 1 View Date of Exam: 03/06/17 Exam# [id number] Ordering Dr: Flip Jessica MD STUDY: X-RAY [...] CC: Flip Jessica MD; Sandra Bermudez DO Optical Goods Worker: Signed 06-Mar-2017 Thoracic Spine 3 Views Result: Comments: See Note; NOTES: [facility] Imaging Services [address] [place] [address] Verdana 4d Thoracic Spine 3 Views MR#: [id number] Acct: [id number] Name: MANDY MONTERO Rep # : [id number] : 1990 F 26 From: Merritt Bolton MD PCP: Sandra Bermudez DO Status: REG ER Study: Thoracic Spine 3 Views Date of Exam: 03/06/17 Exam# [id number] Ordering Dr: Flip Jessica MD [facility] DY: X-RAY - THORACIC SPINE [...] CC: Flip Jessica MD; Sandra Bermudez DO Optical Goods Worker: Signed 10-Sep-2016 Chest 1 View (Portable) Result: Comments: See Note; NOTES: [facility] Imaging Services [address] [place] [address] Verdana 4d Chest 1 View (Portable) MR#: [id number] Acct: [id number] Name: MANDY MONTERO Rep #: [id number] : 1990 F 26 From: Mandy Chávez MD PCP: Sandra Bermudez DO Status: PRE ER Study: Chest 1 View (Portable) Date of Exam: 09/10/16 Exam# [id number] Ordering Dr: Vinnie Sher MD STUDY: X-RAY [...] MD at 23:49 EST , Service support [phone], CC: Linden Sher MD; Sandra Bermudez DO Optical Goods Worker: Signed 12-Mar-2016 Emergency Department Summary Result: Comments: See Note; NOTES: [facility] Medical Records Department [address] [place] [address] Emergency Department Summary MR#: [id number] Acct: [id number] Name: MANDY MONTERO Rep #: [id number] : 1990 25 From: Joseph Mcgee MD [...] Baxter Date Dictated: 02/29/16112 Date Transcribed: 02/29/16112 Optical Goods Worker: Signed 28-Feb-2016 Discharge Instruction Result: Comments: See Note; NOTES: [facility] Medical Records Department [address] [place] [address] [place] [address] Discharge Instruction 02/28/161925 MR#: [id number] Acct: [id number] Name: MIGUELMANDY A Rep #: [id number] : 1990 25 From: Joseph Mcgee MD [...] problems, contact your doctor. Call Doctors Registry ([phone]) or report to the closest Emergency Room. Call 911 if necessary. 224 <Electronically signed by Joseph Mcgee MD> Date Joseph Mcgee MD Cosigner Signature (If Indicated): Date ___ CC: Roe Baxter 28-Feb-2016 Abdomen/Pelvis without Cont Result: Comments: See Note; NOTES: [facility] Imaging Services [address] [place] [address] Verdana 4d Abdomen/Pelvis without Cont MR#: [id number] Acct: [id number] Name: MANDY MONTERO Rep #: [id number] : 1990 F 25 From: Seymour Villagomez MD PCP: Roe Baxter Status: REG ER Study: Abdomen/Pelvis without Cont Date of Exam: 02/28/16 Exam# [id number] Ordering Dr: Joseph Patton MD STUDY: CT [...] MD at 18:47 EDT , Service support [phone], CC: Roe Baxter; Joseph Mcgee MD Optical Goods Worker: Signed 25-Feb-2016 Emergency Department Summary Result: Comments: See Note; NOTES: [facility] Medical Records Department [address] [place] [address] Emergency Department Summary MR#: [id number] Acct: [id number] Name: MANDY MONTERO Rep #: [id number] : 1990 25 From: Tomás Willis MD [...] C: Roe Baxter MD T: JENNIFER JOB: [id number] 02/25/16 1517 <Electronically signed by Tomás Willis MD> Date Tomás Willis MD Cosigner Signature (If Indicated): Date CC: Roe Baxter Date Dictated: 02/23/16 1521 Date Transcribed: 02/23/161520 Optical Goods Worker: Signed 23-Feb-2016 Discharge Instruction Result: Comments: See Note; NOTES: [facility] Medical Records Department [address] [address] [place] [address] Discharge Instruction 02/23/16 1514 MR#: [id number] Acct: [id number] Name: MANDY MONTERO Rep #: [id number] : 1990 25 From: Tomás Willis MD [...] problems, contact your doctor. Call Doctors Registry ([phone]) or report to the closest Emergency Room. Call 911 if necessary. [phone] <Electronically signed by Tomás Willis MD> Date Tomás Willis MD Cosigner Signature (If Indicated): Date CC: Roe Baxter 28-Jan-2016 Chest 1 View (Portable) Result: Comments: See Note; NOTES: [facility] Imaging Services [address] [place] [address] Verdana 4d Chest 1 View (Portable) MR#: [id number] Acct: [id number] Name: MANDY ACUNA Rep #: [id number] : 1990 F 25 From: Abdirahman Awad MD PCP: Linda Houston MD Status: PRE ER Study: Chest 1 View (Portable) Date of Exam: 01/28/16 Exam# [id number] Ordering Dr: Edita Willis MD STUDY: X-RAY [...] MD at 22:53 EDT , Service support [phone], RAD/Chest 1 View (Portable) IMPRESSION: Retrocar diac density in left lower lobe possibly representing atelectasis or infiltrate. Recommend lateral view for further assessment Electronically Signed: Abdirahman Awad MD at 22:53 EDT , Service support [phone], CC: Linda Houston MD; Tomás Willis MD Optical Goods Worker: Signed Family History Unknown Family Member Name [...] Arm; Cuff Size: Standard Weight 87 lb 3-Zdg-683018:54 Pulse 86 /min Comments: Pattern: Regular Respiration Rate 16 /min Comments: Pattern: Unlabored BP Systolic 140 mm[Hg] Comments: Patient Position: Sitting; Cuff Location: Left Arm; Cuff Size: Standard BP Diastolic 110 mm[Hg] Comments: Patient Position: Sitting; Cuff Location: Left Arm; Cuff Size: Standard Weight 80 lb Height 0 in Head Circumference 0.00 cm Results Date Description Value Details :37 TSH (15303) Comments: PATIENT NOT FASTINGPERFORMED BY: Z[facility]ZIOverlook Medical CenterPvkwky[address] [place] [address] [id number] BY: [place] [id number] TSH 1.030 {uIU/mL} (Normal) Range: 0.450-4.500 40-Ewm-361295:37 T4, FREE (THYROXINE) Comments: PATIENT NOT FASTINGPERFORMED BY: ZOZI[address] [id number] BY: [employer] [id number] ([address]) T4,Free(Direct) 0.84 ng/dL (Normal) Range: 0.82-1.77 36-Zbi-214551:37 T3, FREE (TRIDOTHYRONINE) Comments: PATIENT NOT FASTINGPERFORMED BY: ZOZI[address] [id number] BY: [employer] [id number] ([address]207) Triiodothyronine (T3), Free 2.6 pg/mL (Normal) Range: 2.0-4.4 20-Urd-732303:37 CALCIFIDIOL (43514) VIT D Comments: PATIENT NOT FASTINGPERFORMED BY: [employer] Streetblin [place] [id number] BY: ZOZI[address] [id number] 25 Vitamin D, 25-Hydroxy 42.6 ng/mL (Normal) Range: 30.0-100.0 Comments: Vitamin D deficiency has been defined by the [place] of[place]icine and an Endocrine Society practice guideline as alevel of serum 25-OH vitamin D less than 20 ng/mL (1,2).The Endocrine Society went on to further define vitamin Dinsufficiency as a level between 21 and 29 ng/mL (2).1. IOM ([place] of Medicine). 2010. Dietary reference intakes for calcium and D. [place]: The National Academies Press.2. Gabbi MF, Singh MCKEON, Pollo JOSEPH, et al. Evaluation, treatment, and prevention of vitamin D deficiency: an Endocrine Society clinical practice guideline. JCEM. 2010; 96(7):1911-30. 65-Gbi-164309:37 TRILEPTAL-OXCARBAZEPINE [id number] Comments: send results to dr delgado too; PATIENT NOT FASTINGPERFORMED BY: [facility] [facility] [id number] BY: ZOZI[address] [id number] ([address]) Oxcarbazepine 49 ug/mL (Abnormal) Range: 10-35 Comments: Detection Limit = 1 70-Knn-255392:37 CBC with auto diff Comments: send results to dr sandy storm; PATIENT NOT FASTINGPERFORMED BY: [employer] - is now [employer] Casrnn3757 [facility] [id number] BY: ZOZI[address] [id number] (87921) Immature Grans (Abs) 0.0 {x10E3/uL} (Normal) Range: [...] 3.77-5.28 WBC 6.3 {x10E3/uL} (Normal) Range: 3.4-10.8 81-Fdj-418563:37 METABOLIC PANEL, Comments: send results to dr delgado too; PATIENT NOT FASTINGPERFORMED BY: [facility] Jupbsd5829 [facility] [id number] BY: [facility] [address] [id number] [facility] ([address]) ALT (SGPT) 38 [iU]/L (Abnormal) Range: 0-32 [...] 6-20 Glucose 237 mg/dL (Abnormal) Range: 65-99 70-Huh-356295:37 HGB A1C (10845) Comments: PATIENT NOT FASTINGPERFORMED BY: CB [facility] Acowef3583 [facility] [id number] BY: BN [facility] [address] [id number] Hemoglobin A1c 6.3 % (Abnormal) Range: 4.8-5.6 Comments: . Prediabetes: 5.7 - 6.4 Diabetes: >6.4 Glycemic control for adults with diabetes: <7.0 68-Nuz-745801:00 Urinalysis, Complete Comments: How was Urine Obtained? CATHETER SPECIMENWLake County Memorial Hospital [facility] West Dkyxsvxjfi56[address] [place], [place], [id number] MUCUS, URINE 0 SEEN {/hpf} (Normal) BACTERIA [...] (Abnormal) CLARITY Clear (Normal) COLOR Yellow (Normal) 48-Rvz-715460:50 Basic Metabolic Profile (BMP) Comments: [facility] [address] [place], [place], [address] GAP 8 (Normal) Range: 5-15 CO2 28.0 [...] A.D.A. criteria.Please note revised GLUCOSE reference range xlhrvuyku09/02/2018. 80-Akw-620547:50 CBC W/Diff, Automated Comments: [facility] [address] [place], [address] Absolute Lymph 1.52 {X10_3/ul} (Normal) [...] 4.2-5.4 WBC 6.0 K/mm3 (Normal) Range: 4.4-11.0 57-Avt-71094:00 Lactic Acid Comments: Yes/No query for Sepsis Lactate Rule [facility] [address] [place], [place], [address] LACTIC ACID 2.0 mmol/L (Normal) Range: 0.4-2.0 Comments: Critical Result(s) Called at: 18:33:30 01/24/2018 by:Yohana Cabreraencompass health rehabilitation [facility] 93-Mmp-233501:39 TSH (75670) Comments: PATIENT NOT FASTINGPERFORMED BY: CB [facility] Pwetln6553 [facility] [id number] BY: BN [facility] [address] [id number] TSH 1.150 {uIU/mL} (Normal) Range: 0.450-4.500 86-Fzs-885778:39 METABOLIC PANEL, Comments: PATIENT NOT FASTINGPERFORMED BY: ZOZIOverlook Medical CenterVrdear0627 [facility] [id number] BY: [employer] [id number] COMPREHENSIVE (11957) ALT (SGPT) 18 [iU]/L (Normal) Range: 0-32 [...] Glucose, Serum 138 mg/dL (Abnormal) Range: 65-99 20-Qsw-080842:39 CBC W/AUTO DIFF WBC Comments: PATIENT NOT FASTINGPERFORMED BY: ZOZIOverlook Medical CenterCzlyen9901 [facility] [id number] BY: [address] [id number] ([address]55) Immature Grans (Abs) 0.0 {x10E3/uL} (Normal) Range: [...] 3.77-5.28 WBC 6.6 {x10E3/uL} (Normal) Range: 3.4-10.8 78-Asq-777732:39 TRILEPTAL-OXCARBAZEPINE 078187 Comments: PATIENT NOT FASTINGPERFORMED BY: CB [facility] Byfxls0971 [facility] [id number] BY: BN [facility] [address] [id number] (34033) Oxcarbazepine 28 ug/mL (Normal) Range: 10-35 Comments: Detection Limit = 1 35-Edu-043535:39 CALCIFIDIOL (00145) VIT D Comments: PATIENT NOT FASTINGPERFORMED BY: ZOZI Juajnq3112 [facility] [id number] BY: [employer] [id number] 25 Vitamin D, 25-Hydroxy 56.3 ng/mL (Normal) Range: 30.0-100.0 Comments: Vitamin D deficiency has been defined by the [place] of[place]icine and an Endocrine Society practice guideline as alevel of serum 25-OH vitamin D less than 20 ng/mL (1,2).The Endocrine Society went on to further define vitamin Dinsufficiency as a level between 21 and 29 ng/mL (2).1. IOM ([place] of Medicine). 2010. Dietary reference intakes for calcium and D. [place]: The National Academies Press.2. Gabbi MF, Singh [place], Pollo JOSEPH, et al. Evaluation, treatment, and prevention of vitamin D deficiency: an Endocrine Society clinical practice guideline. JCEM. 2010; 96(7):1911-30. 92-Uvz-623288:39 HGB A1C (42092) Comments: PATIENT NOT FASTINGPERFORMED BY: ZOZI Xacsxg9154 [facility] [id number] BY: ZOZI[address] [id number] Hemoglobin A1c 5.7 % (Abnormal) Range: 4.8-5.6 Comments: . Pre-diabetes: 5.7 - 6.4 Diabetes: >6.4 Glycemic control for adults with diabetes: <7.0 20-Apr-20174:11 THROAT CULTURE (62300) Comments: PATIENT NOT FASTINGPERFORMED BY: ZOZI Pdccbq2539 [facility] [id number] Information: SRC:TH Result 1 RRF (Normal) Comments: Routine respiratory jasper Upper Respiratory Culture Final report (Normal) 69-Gia-118321:35 CBC W/Diff, Automated Comments: [facility] [address] [place], [address] Absolute Lymph 1.23 {X10_3/ul} (Normal) Range: 0.83-4.51 [...] 4.2-5.4 WBC 4.9 K/mm3 (Normal) Range: 4.4-11.0 84-Faw-261609:35 CRP Comments: [facility] [address]brzw0705 [facility], [address] C-REACTIVE PROT < 2.90 mg/L (Normal) Range: 0.0-3.0 Comments: C-Reactive Protein (CRP) provides useful information for thediagnosis, therapy and monitoring of inflammatory processesand associated diseases. For the evaluation of Relative Riskfor Cardiovascular Dise ase, a High Sensitivity CRP (HSCRP)should be ordered. 2-Cfc-816283:15 Culture, Nose Comments: [facility] [address] [facility], [address] CUN See Note (Normal) Comments: Comments: THICK [...] $ <=20 S(NF) indicates non-formulary drug at [facility]. Ap proval by Infectious Disease Specialist required before non-formulary drugs may be ordered and/or dispensed. Pseudomonas aeroginosa: REACTION Cefepime $ <=1 S Ceftazidime *NF 2 S Ciprofloxacin $ 2 I Gentamicin $ <=1 S Imipenem *NF 1 S Levofloxacin $ 4 I Piperacillin/Tazobactam $$ 8 S Tobramycin $ <=1 S(NF) rocky cates non-formulary drug at [facility]. Approval by Infectious Disease Specialist required before non-formulary drugs may be ordered and/or dispensed. 59-Dze-338319:34 LIPID PANEL (86234) Comments: PATIENT NOT FASTINGPERFORMED BY: [facility] Semjvx7238 [facility] [id number] BY: [facility] [address] [id number] LDL/HDL Ratio 1.5 {ratio_units} (Normal) Range: 0.0-3.2 Comments: LDL/HDL Ratio Men Women 1/2 Avg.Risk 1.0 1.5 Av g.Risk 3.6 3.2 2X Avg.Risk 6.2 5.0 3X Avg.Risk 8.0 6.1 LDL Cholesterol Calc 76 mg/dL (Normal) Range: 0-99 VLDL Cholesterol Dirk 17 mg/dL (Normal) Range: 5-40 HDL Cholesterol 50 mg/dL (Normal) Triglycerides 84 mg/dL (Normal) Range: 0-149 Cholesterol, Total 143 mg/dL (Normal) Range: 100-199 10-Ugy-576939:34 METABOLIC PANEL, Comments: PATIENT NOT FASTINGPERFORMED BY: [employer]70 [facility] [id number] BY: ZOZI[address] [id number] [facility] ([address]) ALT (SGPT) 20 [iU]/L (Normal) Range: 0-32 [...] Glucose, Serum 137 mg/dL (Abnormal) Range: 65-99 26-Kdg-882047:34 CBC with auto diff Comments: PATIENT NOT FASTINGPERFORMED BY: [employer]6370 [facility] [id number] BY: [facility] [address] [id number] ([address]67) Immature Grans (Abs) 0.0 {x10E3/uL} (Normal) Range: [...] 3.77-5.28 WBC 4.5 {x10E3/uL} (Normal) Range: 3.4-10.8 58-Vob-567307:34 TRILEPTAL-OXCARBAZEPINE 115716 Comments: PATIENT NOT FASTINGPERFORMED BY: [facility] Fnjftf3838 [facility] [id number] BY: [facility] [address] [id number] ([address]) Oxcarbazepine 23 ug/mL (Normal) Range: 10-35 Comments: Detection Limit = 1 00-Cak-048767:34 HGB A1C (26794) Comments: PATIENT NOT FASTINGPERFORMED BY: [facility] Hatxig9919 [facility] [id number] BY: [facility] Bcdrrrhrld8522 [facility] [id number] Hemoglobin A1c 6.1 % (Abnormal) Range: 4.8-5.6 Comments: . Pre-diabetes: 5.7 - 6.4 Diabetes: >6.4 Glycemic control for adults with diabetes: <7.0 49-Auc-883215:34 CALCIFIDIOL (47468) VIT D Comments: PATIENT NOT FASTINGPERFORMED BY: [facility] Yipsor[address] [facility] [id number] BY: [facility] Bddllefuft3288 [facility] [id number] 25 Vitamin D, 25-Hydroxy 49.1 ng/mL (Normal) Range: 30.0-100.0 Comments: Vitamin D deficiency has been defined by the [place] of[place]icine and an Endocrine Society practice guideline as alevel of serum 25-OH vitamin D less than 20 ng/mL (1,2).The Endocrine Society went on to further define vitamin Dinsufficiency as a level between 21 and 29 ng/mL (2).1. IOM ([place] of Medicine). 2010. Dietary reference intakes for calcium and D. [place]: The National Academies Press.2. Gabbi MF, Singh [place], Pollo JOSEPH, et al. Evaluation, treatment, and prevention of vitamin D deficiency: an Endocrine Society clinical practice guideline. JCEM. 2010; 96(7):1911-30. 61-Kuf-208162:15 Culture, Throat Comments: [facility] [address] [place], [place], [address] CUT See Note (Normal) Comments: Culture, ThroatMixed [...] $ <=20 S(NF) indicates non-formulary drug at [facility]. Approval by Infec tious Disease Specialist required before non-formulary drugs may be ordered and/or dispensed. 11-Bqs-94919:30 Culture, Wound Comments: [facility] [address] [place], [address] CUW See Note (Normal) Comments: Comments: COLLECTED FROM TRACHEA STOMA/DX THICK SPUTUMGram StainGram Stain No organisms seen Wound CultureNo Haemophilus, Streptococcus pneumoniae, beta-hemolytic Streptococcus or Staphylococcus aureu s isolated. Copy of report sent to Infection Control Printer MS#[id number] 12/09/16 5000 DCANNON. ORGANISM 1: Serratia marcescensAmount Growth 1+ [...] $ <=20 S(NF) indicates non-formulary drug at [facility]. Approval by Infectious Disease Specialist required before non-formulary drugs may be ordered and/or dispensed. Pseudomonas aeroginosa: REACTION Cefepime $ <=1 S Ceftazidime *NF <=1 S Ciprofloxacin $ 0.5 S Gentamicin $ <=1 S Imipenem *NF 1 S Levofloxacin $ 1 S Piperacillin/Tazobactam $$ 8 S Tobramycin $ <=1 S(NF) indicates non-formulary drug at [facility]. Approval b y Infectious Disease Specialist required before non-formulary drugs may be ordered and/or dispensed. :37 Base Excess ISTAT Comments: [place] [address] [place] [address] BE ISTAT 6 mmol/L (Abnormal) :37 Bicarbonate ISTAT Comments: [place] [place] [address] HCO3 ISTAT 30 mmol/L (Abnormal) Range: 22-26 Comments: Site = R BrachialAllens Test = NAMode = A-CDevice = VentFIO2 = 40Results To = ED MDTime Given = 2350MV = 4.5VT = 250RR = 21PEEP = 7 :37 Blood Gas Specimen Type Comments: [address] [place], [place] [address] BLD GAS TYPE ART (Normal) 28-Apx-619397:37 pCO2 - ISTAT 40.0 {mmHg} (Normal) Comments: [place] [address] [place] [address] Range: 35-45 18-Sby-721957:37 pH - I-STAT 7.48 (Abnormal) Comments: [place] [address] [place] [address] Range: 7.35-7.45 73-Zbq-364889:37 PO2 I-STAT 65 {mmHG} (Abnormal) Comments: [place] [address] [place] [address] Range: 75-100 55-Yuy-021647:37 SO2 ISTAT 94 % (Abnormal) Comments: [place] [address] [address] [place] [address] Range: 95-99 61-Qti-001738:37 Total Carbon Dioxide ISTAT Comments: [facility] LaboratoryPoint of [address] [place] [place] [address] TOTAL CO2 ISTAT 31 mmol/L (Normal) 70-Pyy-178542:55 Basic Metabolic Profile (BMP) Comments: [facility] [address] [place], [address] GAP 5 (Normal) Range: 5-15 CO2 [...] 7-18 GLU 79 mg/dL (Normal) Range: 70-110 87-Wvu-762573:55 CBC W/Diff, Automated Comments: [facility] [address] [place], [address] Absolute Lymph 1.51 {X10_3/ul} (Normal) Range: [...] 4.2-5.4 WBC 4.6 K/mm3 (Normal) Range: 4.4-11.0 7-Jvl-441222:52 Anaerobic and Aerobic Comments: PERFORMED BY: [facility] CenterGvixgx2548 [facility] [id number] Information: buttock SRC:WO Culture Antimicrobial MIHEAD (Normal) [...] 72 hours. Anaerobic Culture Final report (Normal) 1-Qyt-489777:39 CBC With Differential/Platelet Comments: PERFORMED BY: CB [facility] Aotguv2367 [facility] [id number] BY: BN [facility] [address] [id number] Immature Grans (Abs) 0.0 {x10E3/uL} (Normal) Range: [...] :39 Comp. Metabolic Panel Comments: PERFORMED BY: [employer] Corporationlin[address] [facility] [id number] BY: [facility] Rings[address] [id number] (14) ALT (SGPT) 27 [iU]/L (Normal) Range: [...] 65-99 :39 Oxcarbazepine (Trileptal),S Comments: PERFORMED BY: [employer] [facility] [place] [id number] BY: [address] [id number] Oxcarbazepine 24 ug/mL (Normal) Range: 10-35 Comments: Detection Limit = 1 :39 TSH 1.640 {uIU/mL} Comments: PERFORMED BY: [place] [address] [facility] [id number] BY: [address] [id number] (Normal) Range: 0.450-4.500 :39 Vitamin B12 and Folate Comments: PERFORMED BY: [address] [id number] BY: [address] [id number] Folate (Folic Acid), 8.0 ng/mL (Normal) Comments: A serum folate concentration of less than 3.1 ng/mL isconsidered to represent clinical deficiency. Serum Vitamin B12 1048 pg/mL Range: 211-946 (Abnormal) : Vitamin D, 40.7 ng/mL (Normal) Comments: PERFORMED BY: [place] [address] [facility] [id number] BY: [address] [id number] 25-Hydroxy Range: 30.0-100.0 Comments: Vitamin D deficiency has been defined by the [place] ofMedicine and an Endocrine Society practice guideline as alevel of serum 25-OH vitamin D less than 20 ng/mL (1,2).The Endocrine Society went on to further define vitamin Dinsufficiency as a level between 21 and 29 ng/mL (2).1. IOM ([place] of Medicine). 2010. Dietary reference intakes for calcium and D. [place]: The National Academies Press.2. Gabbi MF, Singh NC, Pollo JOSEPH, et al. Evaluation, treatment, and prevention of vitamin D deficiency: an Endocrine Society clinical practice guideline. JCEM. 2010; 96(7):1911-30. 07-Acd-285451:00 Urinalysis, Complete Comments: Order Date: 02/28/16How was Urine Obtained? CATHE[facility] SPECIMENWLake [facility] Heptfgxssr8384 [address] [place], [place], [id number] MUCUS, URINE RARE {/hpf} (Normal) BACTERIA 0 [...] CLARITY Sl. Cloudy (Normal) COLOR Yellow (Normal) 14-Pys-988042:00 Basic Metabolic Profile (BMP) Comments: [facility] Jttaxldcme[address] [place], [place], [address] GAP 8 (Normal) Range: 5-15 CO2 26.0 [...] 7-18 GLU 84 mg/dL (Normal) Range: 70-110 59-Lhe-066525:00 CBC W/Diff, Automated Comments: [facility] [address] [place], [place], [address] Absolute Lymph 1.11 {X10_3/ul} (Normal) Range: 0.83-4.51 [...] 4.2-5.4 WBC 5.5 K/mm3 (Normal) Range: 4.4-11.0 82-Pel-643327:00 Lactic Acid Comments: [facility] Vrasxsbrif[address] [place], [address] LACTIC ACID 1.6 mmol/L (Normal) Range: 0.4-2.0 17-Rul-342915:00 Lipase Comments: [address] [place], [address] LIPASE 177 U/L (Normal) Range: 73-393 30-Pzb-209670:00 Liver Profile Comments: [address] [place], [address] D BILI 0.08 mg/dL (Normal) Range: [...] (Normal) Range: 6.4-8.2 :30 CDIFF (Molecular) Comments: [address] [place], [address] CDIFF See Note (Normal) Comments: Cdiff-MolecularC. Diff DNA Negative- No toxigenic C. Diff DNA Detected :30 ENTERIC PATHOGEN PANEL STOOL Comments: [address] [place], [address] EP PANEL See Note (Normal) Comments: [...] DetectedRotavirus Not Detected 19-Feb-20167:30 Stool Lactoferrin/WBC Comments: [facility] [address] [place], [address] WBCST See Note (Normal) Comments: Stool Lacto/WBCFecal WBC Lactoferrin Negative: No Fecal WBC Lactoferrin present :30 Stool Occult Blood iFOB Comments: [address] [place], [address] STOB See Note (Normal) Comments: STOB iFOBOccult Blood Negative 36-Kyt-546897:35 Urinalysis, Complete Comments: How was Urine Obtained? CATHETER SPECIMENW[address] [place], [address] MUCUS, URINE 0 SEEN {/hpf} [...] (Normal) CLARITY Cloudy (Normal) COLOR Yellow (Normal) 69-Eoh-867825:00 CBC W/Diff, Automated Comments: [address] [place], [address] SMEAR COMMENT SCANNED (Normal) Comments: [...] 4.2-5.4 WBC 6.8 K/mm3 (Normal) Range: 4.4-11.0 05-Yxb-419472:00 Comprehensive Metabolic Profil Comments: [facility] [address]af[address] [place], [address] GAP 9 (Normal) Range: 5-15 CO2 29.0 [...] 7-18 GLU 84 mg/dL (Normal) Range: 70-110 11-Msp-032126:00 Lactic Acid Comments: [facility] Yxukzbsv[address] [place], [address] LACTIC ACID 2.6 mmol/L (Abnormal) Range: 0.4-2.0 58-Kre-742705:00 Partial Thromboplast Time Comments: [facility] Easbnumpoi[address] [place] [place], [address] PTT 26.7 s (Normal) Range: 24.1-36.2 39-Dia-583492:00 Prothrombin Time w/INR Comments: [facility] [address] [place], [place], [address] INR 1.0 (Normal) PROTIME 13.1 s (Normal) Range: 11.7-14.9 20-Jan-20161:25 PREALBUMIN (17156) Comments: PERFORMED BY: [facility]6370 [facility] [id number] Prealbumin 27 mg/dL (Normal) Range: 9-31 Comments: [...] - 36 >70 years 9 - 32 03-Cqw-377162:16 Clostridium difficile Toxin Comments: PERFORMED BY: [facility]Co[facility] CenterFohaay1091 [facility] [id number] A+B, EIA (01821) C difficile Toxins A+B, EIA Negative (Normal) 25-Dxj-567414:00 Culture, Urine Comments: [facility] [address]dtjxdj[address] [place], [address] CUUR See Note (Normal) Comments: Urine CultureCulture exhibits no growth. 35-Bhw-010221:00 Urinalysis, Complete Comments: How was Urine Obtained? CLEAN [facility] Xtcardnvrp2214 [place], [address] MUCUS, URINE 0 SEEN {/hpf} [...] CLARITY Sl. Cloudy (Normal) COLOR Yellow (Normal) 02-Wan-235734:30 Culture, Urine Comments: [facility] Jiwtirmlgz[address] [place], [address] CUUR See Note (Normal) Comments: Urine CultureORGANISM 1: Enterococcus faecalisColony Count >100,000 Enterococcus faecalis: REACTION Ampicillin $ <=2 S Benzylpenicillin NF 2 S Ciprofloxacin $ <=0.5 S Gentamicin SYN-S S Levofloxacin $ 1 S Linezolid $$$$ 2 S Nitrofurantoin $ <=16 S Streptomycin $ SYN- S S Tetracycline NF >=16 R Vancomycin $ 1 S(NF) indicates non-formulary drug at [facility]. Approval by Infectious Disease Specialist required before non-formulary drugs may be ordered and/or dispensed. * CLSI guidelines does not recommend testing of cephalosporins. This interpretation is deduced from Beta-lactam/penicillin results. 44-Gyp-429548:30 Urinalysis, Complete Comments: How was Urine Obtained? Urine, [facility] Kmeoovgqsv5664 [facility] [place], [address] MUCUS, URINE 0 SEEN {/hpf} [...] CLARITY Sl. Cloudy (Normal) COLOR Yellow (Normal) 65-Pew-313750:00 ENTERIC PATHOGEN PANEL STOOL Comments: [facility] Yoxndhboov9851 [facility] [place], [place], [address] EP PANEL See Note (Normal) Comments: RESULTS CALLED TO DR. HOUSTON 09/10/15 @9983 BY [facility].EP PANEL STOOLNot detected for Campylobacter group, Salmonella [...] DetectedVIBRIO Not DetectedNorovirus Not DetectedRotavirus Not Detected 16-Wvo-675115:00 Stool Lactoferrin/WBC Comments: [facility] Eomysumroj[address] [place], [place], [address] WBCST See Note (Normal) Comments: RESULTS CALLED TO DR. HOUSTON 09/10/15 @1952 BY THADDEUS.Stool Lacto/WBCFecal WBC Lactoferrin Negative: No Fecal WBC Lactoferrin present 19-Hat-817647:00 Stool Occult Blood iFOB Comments: [facility] [address]rs[address] [place], [place], [address] STOB See Note (Normal) Comments: RESULTS CALLED TO DR. HOUSTON 09/10/15 @1952 BY THADDEUS.STOB iFOBOccult Blood Negative :29 CBC with auto diff Comments: PERFORMED BY: [facility] Stkbpn2813 [facility] [id number] BY: [facility] [address] [id number] ([address]) Immature Grans (Abs) 0.0 {x10E3/uL} (Normal) Range: [...] METABOLIC PANEL, Comments: PERFORMED BY: CB [facility] Bgqvsq8689 [facility] [id number] BY: BN [facility] [address] [id number] COMPREHENSIVE (06087) ALT (SGPT) 17 [iU]/L (Normal) Range: 0-32 [...] 73 mg/dL (Normal) Range: 65-99 :29 CALCIFIDIOL (88807) VIT D Comments: PERFORMED BY: [employer] [facility] [id number] BY: ZOZI[address] [id number] 25 Vitamin D, 25-Hydroxy 39.5 ng/mL (Normal) Range: 30.0-100.0 Comments: Vitamin D deficiency has been defined by the [place] ofMedicine and an Endocrine Society practice guideline as alevel of serum 25-OH vitamin D less than 20 ng/mL (1,2).The Endocrine Society went on to further define vitamin Dinsufficiency as a level between 21 and 29 ng/mL (2).1. IOM ([place] of Medicine). 2010. Dietary reference intakes for calcium and D. [place]: The National Academies Press.2. Gabbi MF, Singh [place], Pollo JOSEPH, et al. Evaluation, treatment, and prevention of vitamin D deficiency: an Endocrine Society clinical practice guideline. JCEM. 2010; 96(7):1911-30. 20-Jan-20161:29 TRILEPTAL-OXCARBAZEPINE 065106 Comments: PERFORMED BY: [employer]70 [facility] [id number] BY: ZOZI[address] [id number] ([address]) Oxcarbazepine 38 ug/mL (Abnormal) Range: 10-35 Comments: Detection Limit = 1 55-Tcj-958690:30 CBC W/Diff, Automated Comments: [facility] [address]woz[address] [place], [place], [address] Absolute Lymph 0.90 {X10_3/ul} (Normal) Range: 0.83-4.51 [...] 4.2-5.4 WBC 5.2 K/mm3 (Normal) Range: 4.4-11.0 01-Rwc-469446:30 Comprehensive Metabolic Profil Comments: [facility] Ufpvokhlim[address] [place], [place], [address] GAP 8 (Normal) Range: 5-15 CO2 26.0 [...] 200 mg/dLsuggests DIABETES MELLITUS per A.D.A. criteria. 43-Fds-208415:30 Lipid Profile Comments: [facility] Ytlivardih[address] [place], [place], [address] VLDL 38 mg/dL (Normal) Range: 5-40 LDL [...] 200-240 mg/dL Borderline >240 mg/dL High Risk 65-Vog-242122:30 Prealbumin Comments: [facility] [address]ufnuvekgx[address] [place], [address] PREALBUMIN 26.0 mg/dL (Normal) Range: 20.0-40.0 62-Tkn-248641:30 Thyroid Stim Hormone (TSH) Comments: [facility] Xczxmdmuuv85[address] [place], [address] TSH 1.02 {uIU/mL} (Normal) Range: 0.358-3.74 67-Tlj-907542:30 Trileptal-Oxcarbazepine Comments: [facility] (refer to report for specific site)refer to report for address and phone number TRILEPT [id number] 38 ug/mL (Abnormal) Range: 10-35 Comments: Detection Limit = 1Performed at: [facility] LabCo[address] [id number] Director: Reji Gibson MD, Phone: [phone] 67-Raw-579729:30 Vitamin D,25 Hydroxy Comments: [facility] [address]ns[address] [place] [address] [place], [id number] Vitamin D 25-OH 38.4 ng/mL (Normal) Comments: Vitamin D 25(OH) Status Range Deficiency <20 ng/mL (50nmol/L) Insuffciency 20 - 30 ng/mL (50 - 75 nmol/L) Sufficiency 30 - 100 ng/mL (75 - 250 nmol/L) Toxicity >100 ng/mL (>250 nmol/L) 0-Sgs-392709:45 CBC-Complete Blood Cnt No Diff Comments: Test performed at:[facility] [address]hy[address] [place] [address] [place] [address] MPV 10.5 fL (Normal) Range: 6.2-12.0 PLT [...] 4.2-5.4 WBC 6.3 K/mm3 (Normal) Range: 4.4-11.0 2-Abk-530315:45 Comprehensive Metabolic Profil Comments: Is Patient Taking Vitamins or Folic Acid Supplements? NTest performed at:[facility] Vlkhzzmrba[address] [place], [place] [address] GAP 7 (Normal) Range: 5-15 CO2 29.0 [...] <126 mg/dLsuggests IMPAIRED HOMEOSTASIS per A.D.A. criteria. 2-Otx-608985:45 CRP Comments: Is Patient Taking Vitamins or Folic Acid Supplements? NTest performed at:[address] [place] [address] C-REACTIVE PROT < 2.90 mg/L (Normal) Range: 0.0-3.0 Comments: C-Reactive Protein (CRP) provides useful information for thediagnosis, therapy and monitoring of inflammatory processesand associated diseases. For the evaluation of Relative Riskfor Cardiovascular Dise ase, a High Sensitivity CRP (HSCRP)should be ordered. :45 Erythrocyte Sed Rate Comments: Test performed at:[address] [place] [address] SED RATE 13 mm/h (Normal) Range: 0-20 :45 Folates, (Folic Acid) Comments: Is Patient Taking Vitamins or Folic Acid Supplements? NTest performed at:[address] [place] [address] FOLATES 15.70 ng/mL (Normal) Range: 3.1-17.5 :45 Free T3 Comments: Is Patient Taking Vitamins or Folic Acid Supplements? NTest performed at:[address] [place] [address] FREE T3 2.4 pg/mL (Normal) Range: 2.18-3.98 :45 Miscellaneous Lab Procedure Comments: Test(s) Ordered: OXCARBAZEPINE, #[id number], RED TOP SERUM/RFTest performed at:[address] [place] [address] MISC Comments: Oxcarbazepine (Trileptal), S Oxcarbazepine 35 ug/mL Ref: 35 Detection Limit=1 TESTING PERFOR MED AT [facility] (Normal) rp. ORIGINAL REPORT ON FILE IN LAB CONTAINS ADDITIONAL TEST SITE INFORMATION. TEST :45 Prealbumin Comments: Is Patient Taking Vitamins or Folic Acid Supplements? NTest performed at:[facility] [address]ae[address] [place] [address] PREALBUMIN 30.9 mg/dL (Normal) Range: 20.0-40.0 :45 ,Serum,hCG Quali. Comments: Test performed at:[facility] [address] [place] [address] HCGSQUAL NEGATIVE {Negative} (Normal) Range: 0-9 Nonpreg HCG Qual triggr < 1 m[iU]/mL (Normal) :45 Prolactin Comments: Is Patient Taking Vitamins or Folic Acid Supplements? NTest performed at:[facility] [address] [place], [place] [address] PROLACTIN 9.5 ng/mL (Normal) Comments: NORMAL REFERENCE RANGES FEMALE NON- 2.2 - 30.3 ng/mL 8.1 - 347.6 ng/mL POST-MENOPAUSAL 0.7 - 3 1.5 ng/mL MALE 2.5 - 17.4 ng/mLNEW TEST METHOD AND REFERENCE RANGES FEBRUARY 01, 2012:45 T4 Free Direct Comments: Is Patient Taking Vitamins or Folic Acid Supplements? NTest performed at:[facility] [address] [place] [address] T4 FREE DIRECT 0.74 ng/dL (Abnormal) Range: 0.76-1.46 :45 Thyroid Stim Hormone (TSH) Comments: Is Patient Taking Vitamins or Folic Acid Supplements? NTest performed at:[facility] [address] [place] [address] TSH 1.39 {uIU/mL} (Normal) Range: 0.358-3.74 :45 Urinalysis, Routine (Dipstick) Comments: How was Urine Obtained? Urine, RandomTest performed at:[facility] T[address]lej[address] [place] [address] LEUK ESTERASE 500 /ul (Abnormal) OCCULT BLOOD-UR Negative /ul (Normal) NITRITE UR Negative (Normal) UROBILI Normal mg/dL (Normal) PROT DIPSTX Negative mg/dL (Normal) pH UR 8.0 (Normal) Range: 5.0 - 8.0 SP.GR. DIPSTX 1.010 (Normal) Range: 1.002-1.030 KETONE UR Negative mg/dL (Normal) BILIRUBIN URINE Negative mg/dL (Normal) GLUCOSE, UR Normal mg/dL (Normal) CLARITY Sl. Cloudy (Normal) COLOR Yellow (Normal) 4-Ryo-965220:45 Vitamin B12 1089 pg/mL (Abnormal) Comments: Test performed at:[facility] [address] [place] [address] Range: 211-911 0-Cqi-898584:45 Vitamin D,25 Hydroxy Comments: Test performed at:[facility] Q[address] [place] [address] Vitamin D 25-OH 23.9 ng/mL (Normal) Comments: Vitamin D 25(OH) Status Range Deficiency <20 ng/mL (50nmol/L) Insuffciency 20 - 30 ng/mL (50 - 75 nmol/L) Sufficiency 30 - 100 ng/mL (75 - 250 nmol/L) Toxicity >100 ng/mL (>250 nmol/L) 71-Jkp-414470:43 ALBUMIN SERUM (49607) Comments: PATIENT NOT FASTINGPERFORMED BY: [facility] [id number] Albumin, Serum 4.7 g/dL (Normal) Range: 3.5-5.5 42-Jqb-752147:43 PREALBUMIN (71519) Comments: PATIENT NOT FASTINGPERFORMED BY: [facility] [id number] Prealbumin 29 mg/dL (Normal) Range: 20-40 11-Hrd-369364:21 ANJELICA CULTURE-OTHER (67389) Comments: PATIENT NOT FASTINGPERFORMED BY: Katangoox RoadDublin [place] [id number] Information: SRC:THRT [id number] Result 1 RRF (Normal) Comments: Routine respiratory jasper Upper Respiratory Culture Final report (Normal) 07-Ifj-518083:43 PROLACTIN (38871) Comments: PATIENT NOT FASTINGPERFORMED BY: [facility]6370 [facility] [id number] Prolactin 13.8 ng/mL (Normal) Range: 4.8-23.3 63-Nvr-519726:43 T3, FREE (TRIDOTHYRONINE) (39742) Comments: PATIENT NOT FASTINGPERFORMED BY: [place] [address]9470 [facility] [id number] Triiodothyronine,Free,Serum 3.3 pg/mL (Normal) Range: 2.0-4.4 44-Nhl-039800:43 T4, FREE (THYROXINE) (68043) Comments: PATIENT NOT FASTINGPERFORMED BY: [facility]6370 [facility] [id number] T4,Free(Direct) 1.14 ng/dL (Normal) Range: 0.82-1.77 37-Hav-980428:43 TSH (33254) Comments: PATIENT NOT FASTINGPERFORMED BY: [facility]6370 [facility] [id number] Information: [id number] TSH 1.580 {uIU/mL} (Normal) Range: 0.450-4.500 15-Ewc-092304:00 CBCD ANC 1.8 {X10_3/uL} (Abnormal) Range: 2.0-7.7 [...] CDIFF See Note (Normal) Comments: FAXED TO [employer] C. Diff DNA Positive-Toxigenic C. Difficile DNA [...] Negative- No toxigenic C. Diff DNA Detected 8-Myb-259819:55 Oxcarbazepine (Trileptal),S Comments: PERFORMED BY: ZOZI [facility] [id number] BY: [address] [id number] Oxcarbazepine 32 ug/mL (Normal) Range: 10-35 Comments: Detection Limit = 1 :55 CALCIFIDIOL (09823) VIT D Comments: PERFORMED BY: [employer] [facility] [id number] BY: [employer] [id number] 25 Vitamin D, 25-Hydroxy 27.4 ng/mL (Abnormal) Range: 30.0-100.0 Comments: Vitamin D deficiency has been defined by the [place] ofMedicine and an Endocrine Society practice guideline as alevel of serum 25-OH vitamin D less than 20 ng/mL (1,2).The Endocrine Society went on to further define vitamin Dinsufficiency as a level between 21 and 29 ng/mL (2).1. IOM ([place] of Medicine). 2010. Dietary reference intakes for calcium and D. [place]: The National Academies Press.2. Gabbi MF, Singh MCKEON, Pollo JOSEPH, et al. Evaluation, treatment, and prevention of vitamin D deficiency: an Endocrine Society clinical practice guideline. JCEM. 2010; 96(7):1911-30. :55 Folate (09503) Comments: PERFORMED BY: ZOZI [facility] [id number] BY: [address] [id number] Folate (Folic Acid), Serum 16.3 ng/mL (Normal) Comments: A serum folate concentration of less than 3.1 ng/mL isconsidered to represent clinical deficiency. :55 VITAMIN B-12 (CYANOCOBALAMIN) Comments: PERFORMED BY: ZOZI Ylsmws8384 [facility] [id number] BY: [address] [id number] (81888) Vitamin B12 889 pg/mL (Normal) Range: 211-946 :55 TSH (33607) Comments: PERFORMED BY: [employer] [facility] [id number] BY: [address] [id number] TSH 1.670 {uIU/mL} (Normal) Range: 0.450-4.500 :55 SED RATE ERYTHROCYTE Comments: PERFORMED BY: [employer] [facility] [id number] BY: [address] [id number] (34275) Sedimentation Rate-Westergren 6 mm/h (Normal) Range: 0-32 :55 METABOLIC PANEL, Comments: PERFORMED BY: [employer]lin6370 [facility] [id number] BY: [employer] [id number] [facility] (56652) ALT (SGPT) 11 [iU]/L (Normal) Range: 0-32 [...] cells when received.This may adversely affect serumChemistries. 4-Uyo-905679:55 C-REACTIVE PROTEIN (09586) Comments: PERFORMED BY: [employer] [facility] [id number] BY: [employer] - is now [employer] [address] [id number] C-Reactive Protein, Quant 0.9 mg/L (Normal) Range: 0.0-4.9 :55 CBC (AUTO) (31158) Comments: PERFORMED BY: [employer] [facility] [id number] BY: ZOZI[address] [id number] Platelets 213 {x10E3/uL} (Normal) Range: 140-415 Comments: [...] of these values in the reference population. 2-Tzm-650167:29 ANJELICA CULTURE-OTHER (66138) Comments: PATIENT NOT FASTINGPERFORMED BY: [facility]6370 [facility] [id number] Information: SRC:THRT [id number] Result 1 RRF (Normal) Comments: Routine respiratory jasper Upper Respiratory Culture Final report (Normal) 3-Suu-547408:03 Rapid Strep Test, Office (44442) Rapid Strep Test, Negative (Normal) Office 43-Ldd-161932:55 CDIF See Note (Normal) Comments: A positive [...] in these cases. C. DIFF ANTIGENS POSITIVE 07-Hpi-278431:30 CDIF See Note (Normal) Comments: RESULTS CALLED [...] Comments: C. DIFF ANTIGENS NEGATIVE :2 TRILEPT [id number] 20 ug/mL (Normal) Range: 10-35 4 Comments: Detection Limit = 1Performed at: [facility] [address] [id number] Director: Reji Gibson MD, Phone: [phone] 41-Wmz-525513:1 C DIF TOXIN/AG See Note (Normal) Comments: RESULTS CALLED TO 06/23/112004 VONDA ELAM.REPORT READ BACK BY SAME . * This is an amended result. * A 5 prior result that was reported as final has been changed.06/23/112004 by IESHAPreviously reported as: C. DIFF ANTIGENS POSITIVE 79-Jdx-880190:46 COMP METABOLIC GAP 11 (Normal) Range: 5-15 [...] 7-18 GLU 71 mg/dL (Normal) Range: 70-110 12-Nlx-548671:41 CBCD ABSOLUTE NEUT 5.0 3/uL (Normal) Range: [...] 4.2-5.4 WBC 7.2 K/mm3 (Normal) Range: 4.4-11.0 4-Xrz-556049:49 CULTURE, THROAT See Note (Normal) Comments: Normal [...] STOOL/SHIG Comments: RESULTS CALLED TO OFFICE TO [id number]/04/10 115KRISTIAN DAWSON.REPORT READ BACK BY SAME . [...] Cyclospora, or Microspo ridia. TESTING PERFORMED AT [facility]. ORIGINAL REPORT ON FILE IN LAB [...] Cyclospora, or Microspo ridia. TESTING PERFORMED AT [facility]. ORIGINAL REPORT ON FILE IN LAB CONTAINS ADDITIONAL TEST SITE INFORMATION. OVA/ PARASITES EXAM NO OVA, CYSTS, OR PARASITES FOUND. :20 WBC,STOOL See Note (Normal) Comments: FECAL WBCs NONE SEEN 74-Wke-070800:14 C DIF TOXIN See Note (Normal) :44 O AND P See Note (Normal) Comments: OVA AND PARASITES EXAM, ROUTINE These results were obtained using wet preparation(s) and trichrome stained smear. This test does not include testing for Crytosporidium parvum, Cyclospora, or Microspo ridia. TESTING PERFORMED AT [facility]. ORIGINAL REPORT ON FILE IN LAB [...] Cyclospora, or Microspo ridia. TESTING PERFORMED AT [facility]. ORIGINAL REPORT ON FILE IN LAB [...] :00 TSH 1.63 {uIU/mL} (Normal) Range: 0.358-3.74 94-Wmf-531705:00 CULTURE, SPUTUM GRAM STAIN See Note (Normal) Comments: GRAM STAIN RARE WHITE BLOOD CELLS RARE GRAM POSITIVE COCCI RARE GRAM NEGATIVE RODS Plan of Care Name Dates Details Instructions Type II diabetes mellitus, well controlled : Continue Current Prescription(s) Indication: Type II diabetes mellitus, well controlled Convulsions : Reviewed Director Personal Letter Indication: Convulsions Neuromuscular scoliosis : Follow [...] Cystitis, acute Planned Observations URINE ANJELICA CULTURE-IDENTIFICATN ([id number])Indication: Abnormal urine On: 8-Uif-054099:25 Request MRSA Culture ([id number])Indication: Thick sputum On: 5-Ehx-327168:32 Request Anaerobic & Aerobic Culture ([id number])Indication: Thick sputum On: 26-Rzx-659908:46 Request Comments: collected from trachea stoma Anaerobic & Aerobic Culture ([id number])Indication: Cellulitis of groin, right On: 9-Vop-680988:44 Request TRILEPTAL-OXCARBAZEPINE [id number] ([id number])Indication: Diarrhea On: 3-Ykm-578750:24 Request VITAMIN B12 AND FOLATES (22739)Indication: Diarrhea On: 3-Vmq-171531:24 Request CALCIFEDIOL ([id number])Indication: Diarrhea On: 1-Aiy-539428:24 Request CALCIFEDIOL (72973)Indication: Diarrhea On: 7-Ycv-830405:23 Request TSH (THYROID STIMULATING HORMONE) (33825)Indication: Diarrhea On: :23 Request METABOLIC PANEL, COMPREHENSIVE (99088)Indication: Diarrhea On: 9-Rre-554978:23 Request CBC, PLATELETS & AUT DIFF ([id number])Indication: Diarrhea On: 0-For-855930:23 Request OVA & PARASITE DIR SMEAR ([id number])Indication: Diarrhea On: 33-Nqj-509106:46 Request ANJELICA CULTURE-STOOL (86547)Indication: Diarrhea On: :46 Request OCCULT BLOOD FECES SCREEN (54021)Indication: Diarrhea On: :46 Request LEUKOCYTE COUNT, FECAL ([id number])Indication: Diarrhea On: :46 Request C-DIFFICILE, STOOL (91151)Indication: Diarrhea On: :46 Request OVA & PARASITE DIR SMEAR (06582)Indication: C. difficile diarrhea On: :50 Request OCCULT BLOOD FECES SCREEN ([id number])Indication: C. difficile diarrhea On: :50 Request ANJELICA CULTURE-STOOL (99894)Indication: C. difficile diarrhea On: :50 Request LEUKOCYTE COUNT, FECAL ([id number])Indication: C. difficile diarrhea On: :50 Request C-DIFFICILE, STOOL (82906)Indication: C. difficile diarrhea On: :49 Request Clostridium difficile Culture ([id number])Indication: Diarrhea On: 6-Rna-957703:52 Request URINALYSIS, W/ MICRO (93926)Indication: Dysuria On: :56 Request URINE ANJELICA CULTURE-SISSY COL COUNT (07874)Indication: Dysuria On: :54 Request OCCULT BLOOD FECES SCREEN ([id number])Indication: Diarrhea On: :01 Request LEUKOCYTE COUNT, FECAL (43414)Indication: Diarrhea On: :05 Request ANJELICA CULTURE-STOOL ([id number])Indication: Diarrhea On: :05 Request Clostridium difficile Toxin A+B, EIA (93103)Indication: Diarrhea On: :05 Request TRILEPTAL-OXCARBAZEPINE [id number] (02700)Indication: Convulsions On: :55 Request PREALBUMIN (74428)Indication: Nutritional assessment On: :45 Request CALCIFIDIOL (05845) VIT D 25Indication: Vitamin D deficiency On: :44 Request TSH ([id number])Indication: Hypertension On: :44 Request METABOLIC PANEL, COMPREHENSIVE (64290)Indication: Hypertension On: :44 Request LIPID PANEL (15983)Indication: Hypertension On: :44 Request CBC with auto diff (58245)Indication: Hypertension On: :44 Request Metabolic Panel, Basic (28072)Indication: Abnormal urine On: :03 Request VITAMIN B12 AND FOLATES (40317)Indication: Abnormal urine On: : Request CALCIFEDIOL (50548)Indication: Abnormal urine On: 0-Aum-944080:03 Request Comments: vit d3 URINE ANJELICA CULTURE-SISSY COL COUNT (14997)Indication: Abnormal urine On: :52 Request TRILEPTAL-OXCARBAZEPINE [id number] ([id number])Indication: Cerebral palsy On: :46 Request HCG Qualitative, Serum (92648)Indication: Amenorrhea On: :45 Request PROLACTIN (73654)Indication: Amenorrhea On: :44 Request PREALBUMIN ([id number])Indication: Cerebral palsy On: 90-Pzs-783226:43 Request URINALYSIS (97305)Indication: Fatigue On: :43 Request T3, FREE (TRIDOTHYRONINE) (24567)Indication: Fatigue On: :43 Request T4, FREE (THYROXINE) (67331)Indication: Fatigue On: :43 Request Folate (87051)Indication: Fatigue On: :42 Request CALCIFIDIOL (07230) VIT D 25Indication: Fatigue On: 87-Wup-134439:42 Request VITAMIN B-12 (CYANOCOBALAMIN) (36450)Indication: Fatigue On: 49-Aja-770335:42 Request TSH (35960)Indication: Fatigue On: :42 Request SED RATE ERYTHROCYTE (45512)Indication: Fatigue On: 47-Rgl-352054:42 Request METABOLIC PANEL, COMPREHENSIVE (59011)Indication: Fatigue On: 84-Cyn-334136:42 Request C-REACTIVE PROTEIN (83966)Indication: Fatigue On: 72-Qwr-761037:42 Request CBC (AUTO) ([id number])Indication: Fatigue On: 30-Wku-193427:42 Request CULTURE,BODY FLUID (63349)Indication: Irregular Menstrual Cycle (Renamed from Irregular bleeding) On: 93-Frd-995950:07 Request Comments: urine Rapid Strep Test, Office (26896)Indication: Pharyngitis, acute On: 40-Kno-774694:51 Request Urinalysis, Office (55373)Indication: Fatigue On: 30-Upx-593310:49 Request HgA1C , Office (69000)Indication: Hyperglycemia On: 44-Ewd-705850:41 Request CALCIFIDIOL (44052) VIT D 25Indication: Vitamin D deficiency On: :32 Request TRILEPTAL-OXCARBAZEPINE [id number] (38101)Indication: Convulsions On: :31 Request Metabolic Panel, Comprehensive (34967)Indication: Acute renal failure On: :31 Request CBC with manual diff ([id number])Indication: Hypertension On: :31 Request CBC with manual diff (55687)Indication: Thrombocytopenia, unspecified On: :35 Request Comments: in citrate tube FIBRINOGEN (56960)Indication: Thrombocytopenia, unspecified On: :35 Request PTT (Activated Partial Thromboplastin Time) (90058)Indication: Thrombocytopenia, unspecified On: :35 Request PT (Prothrobim Time) (75604)Indication: Thrombocytopenia, unspecified On: :35 Request HEPATITIS C ANTIBODY (72105)Indication: Thrombocytopenia, unspecified On: :35 Request HEPATITIS B CORE ANTBD-IGG/IGM (55932)Indication: Thrombocytopenia, unspecified On: :35 Request HEPATITIS B SURFACE ANTIGEN (15491)Indication: Thrombocytopenia, unspecified On: :35 Request HEPATITIS B SURFACE ANTIBODY (10922)Indication: Thrombocytopenia, unspecified On: :35 Request Methylmalonic acid, serum 33878Zixsbmskpe: Thrombocytopenia, unspecified On: :35 Request Vitamin B-12 (cyanocobalamin) (72717)Indication: Thrombocytopenia, unspecified On: :35 Request Sed Rate Erythrocyte (48803)Indication: Thrombocytopenia, unspecified On: :35 Request Metabolic Panel, Comprehensive (04665)Indication: Thrombocytopenia, unspecified On: :35 Request JENNY (ANTINUCLEAR ANTIBODY) (93468)Indication: Thrombocytopenia, unspecified On: :35 Request CBC with manual diff (59858)Indication: Convulsions On: 55-Iyl-089078:31 Request Clostridium difficile Toxin A+B, EIA (87791)Indication: Diarrhea On: :31 Request OVA & PARASITE DIR SMEAR (61481)Indication: Diarrhea On: :44 Request OCCULT BLOOD FECES SCREEN (70263)Indication: Diarrhea On: :44 Request LEUKOCYTE COUNT, FECAL (47608)Indication: Diarrhea On: :44 Request ANJELICA CULTURE-STOOL (69935)Indication: Diarrhea On: :44 Request Clostridium difficile Toxin A+B, EIA (99694)Indication: Diarrhea On: 63-Mtg-069902:22 Request C DIFF AMPLIFIED PROBE (23196)Indication: Diarrhea On: 63-Wjf-59344:51 Request Metabolic Panel, Comprehensive (36077)Indication: Acute renal failure On: :08 Request Comments: recheck prior to August. CALCIFIDIOL (26115) VIT D 25Indication: Vitamin D deficiency On: :08 Request Comments: recheck prior to August. TRILEPTAL-OXCARBAZEPINE 682175 (96500)Indication: Convulsions On: 2-Qzu-547533:08 Request Culture, Stool ([id number])Indication: Diarrhea On: :01 Request C DIFF AMPLIFIED PROBE (82155)Indication: Diarrhea On: :01 Request C DIFF AMPLIFIED PROBE (31498)Indication: Diarrhea On: 53-Hfu-200055:32 Request C DIFF AMPLIFIED PROBE (71784)Indication: Diarrhea On: 43-Fcm-134972:51 Request URINE ANJELICA CULTURE-IDENTIFICATN (46311)Indication: Backache On: 2-Jzl-557824:58 Request URINALYSIS ([id number])Indication: Backache On: 0-Dob-508163:58 Request Metabolic Panel, Comprehensive ([id number])Indication: Profound mental retardation (Renamed from IQ under 20) On: 4-Dli-019549:25 Request Comments: Dr Pino neurologist at [facility] CBC (Auto) ([id number])Indication: Profound mental retardation (Renamed from IQ under 20) On: 3-Lgz-115365:25 Request TRILEPTAL-OXCARBAZEPINE [id number] (07682)Indication: Cerebral palsy On: 3-Qns-793478:24 Request COLUMN CHROMATOGRAPHY, SISSY, SINGLE (62680)Indication: Convulsions On: 79-Jpy-183563:54 Request Comments: trileptal [id number] Clostridium difficile Toxin A+B, EIA (21346)Indication: Diarrhea On: 78-Rvh-801651:26 Request CBC (Auto) (89663)Indication: Convulsions On: 55-Auh-992178:25 Request Metabolic Panel, Comprehensive (97235)Indication: Convulsions On: 87-Xyp-059408:24 Request ANJELICA CULTURE-OTHER (22925)Indication: Pharyngitis, acute On: 0-Nyv-367159:44 Request C.Difficile, Stool (04392)Indication: Diarrhea On: 83-Wwd-095655:48 Request ANJELICA CULTURE-STOOL (82764)Indication: Diarrhea On: :55 Request C.Difficile, Stool (55527)Indication: Diarrhea On: :54 Request LEUKOCYTE COUNT, FECAL (35233)Indication: Diarrhea On: :27 Request OVA & PARASITE DIR SMEAR (71701)Indication: Diarrhea On: :27 Request C.Difficile, Stool (75076)Indication: Diarrhea On: :27 Request ANJELICA CULTURE-STOOL (03894)Indication: Diarrhea On: :27 Request TSH (60694)Indication: Unspecified bacterial pneumonia On: 1-Oio-821617:48 Request CBC, Platelets & Auto Diff (06203)Indication: Unspecified bacterial pneumonia On: :48 Request Magnesium (33849)Indication: Unspecified bacterial pneumonia On: 6-Jxj-919354:48 Request Phosphorus (96213)Indication: Unspecified bacterial pneumonia On: 0-Mqc-643464:48 Request Metabolic Panel, Basic (54528)Indication: Unspecified bacterial pneumonia On: 0-Rxo-071351:48 Request Planned Encounters Medical; 4 Month FU - On: 10-Oct-2018 13:15 [facility] Lara Sandra Lara MCCULLOUGHSandra Planned Procedures Flu Vaccine (Quadrivalent) On: 06-Jun-2018 Intent 11435Fb: Lara MCCULLOUGHSandra Comments: Lot #[id number]-L dltd, IMDose prefilled syringegiven by:MARICARMEN Santana reviewed and ABN signed Sandra Bermudez DO Flu Vaccine (Quadrivalent) On: 02-Aug-2017 Intent 69361Ea: Lara MCCULLOUGHSandra Comments: Lot:[id number]:12/29Amt:0.5mlRoute:IMSite: Rt DltdGiven By: ALFREDITO James signed Sandra Bermudez DO Flu Vaccine (Quadrivalent) On: 14-May-2016 Intent 40618Jh: Roe Baxter MD Comments: Lot #[id number]-L dltd, IMDose prefilled syringegiven by:ALFREDITO Goldberg and ABN signed ADMINISTRATION OF INFLUENZA On: 02-Aug-2015 Intent VIRUS VACCINE (G0008)By: Linda Houston MD Flu Vaccine (Quadrivalent) On: 02-Aug-2015 Intent 66074Oa: Linda Houston MD Comments: Lot #:[id number] date:Amount given:0.5mlRoute: IMSite given:L DltdGiven by: Jessica BASSETT and ABN signed Quad Flu ELECTROCARDIOGRAM, COMPLETE On: 21-Mar-2015 Intent (ECG) (77564)By: Linda Houston MD CT - Brain/Head (IV Contrast On: 29-Nov-2014 Intent Needed)By: Linda Houston MD ADMINISTRATION OF INFLUENZA On: 06-Aug-2014 Intent VIRUS VACCINE (G0008)By: TIMBO Villegas Flu Vaccine (Quadrivalent) On: 06-Aug-2014 Intent 82634Kn: TIMBO Villegas Comments: Lot #:[id number] date:mount given:0.5mlRoute: IM Site given:Given by: to be given per patient home health nurse CATHETERIZE FOR URINE SPEC On: 09-Mar-2014 Intent (P9612)By: Linda Houston MD Comments: pls use pediatric cath- and fax results to [phone] SPECIMEN HNDLNG/TRNSPRT, OFFC > On: 09-Mar-2014 Intent LAB (99827)By: Linda Houston MD IMMUNIZ ADMNIN, 1 VAC, On: 28-Jul-2013 Intent SNGL/COMBO (54190)By: Archie BOLDEN, Comments: Lot #[id number] to nurse for admin Jessica Stack FLU VAC, SPLIT, >3 YEARS, On: 28-Jul-2013 Intent INTRAMUSC (05293)By: Jessica Almanza LPN SPECIMEN HNDLNG/TRNSPRT, OFFC > On: 18-May-2013 Intent LAB (68750)By: Linda Houston MD Eprescribed prescriptions On: 18-May-2013 Intent (G8553)By: Jessica Almanza LPN FLU VAC, SPLIT, >3 YEARS, On: 23-Jun-2011 Intent INTRAMUSC (12903)By: Archie BOLDEN, Comments: Lot #[id number]-L arm, IMDose prefilledgiven by:Jessica Stack IMMUNIZ ADMNIN, 1 VAC, On: 23-Jun-2011 Intent SNGL/COMBO (10770)By: Jessica Almanza LPN Instructions Name Dates Details [...] for the procedure will be Dr [facility]. The chief complaint is teeth [...]
--- OUTSIDE RECORDS SUMMARY | 2018-10-08 11:37 | XMS RPT_ITS | Continuity of Care Document ---
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) Status: Active Unspecified Diagnosis Status: Active Unspecified [...] Monitor System w/Device Kit 1 (one) Kit uad for 0 days Quantity: 1 {Box} Refills: 0 Ordered:10-Jun-2018 Daisy Pineda LPN Start : 10-Jun-2018 Active Comfort Lancets Miscellaneous 1 (one) Misc bid for 0 days Quantity: 1 {Box} Refills: 12 Ordered:10-Jun-2018 Daisy Pineda LPN Start : 10-Jun-2018 Active DiazePAM 1 MG/ML Oral Solution 5 Milliliter bid and 7ml q hs for 0 days Quantity: 500 {Milliliter} Refills: 5 Ordered:09-Jun-2018 Karin Bermudez DO, DO, Kathleen Start : 09-Jun-2018 Active EasyGluco Plus In Vitro Strip 1 (one) Strip bid for 30 days Quantity: 100 {Strip} Refills: 11 Ordered:13-Jun-2018 Daisy Pineda LPN Start : 13-Jun-2018 Active Comments:healthpro test strips Flovent HFA 44 MCG/ACT Inhalation Aerosol 2 puffs Aerosol twice daily via trach for 0 days Quantity: 1 {Inhaler} Refills: 6 Ordered:30-Mar-2018 Karin Bermudez DO, DO, Kathleen Start : 30-Mar-2018 Active Fluticasone Propionate 50 MCG/ACT Nasal Suspension 2 (two) Straughn(s) Straughn(s) each nostril qd for 90 days Quantity: 1 {QS} Refills: 3 Ordered:16-Sep-2017 Karin Bermudez DO, DO, Kathleen Start : 16-Sep-2017 Active Lantus SoloStar 100 UNIT/ML Subcutaneous Solution Pen-injector 3 (three) Unit bid for 30 days Quantity: 1 {Box} Refills: 3 Ordered:10-Jun-2018 Daisy Pineda LPN Start : 10-Jun-2018 Active Miconazole Nitrate 2 % External Cream 1 (one) Cream Cream three times daily for 10 days Quantity: 1 {Tube} Refills: 1 Ordered:14-May-2016 Daisy Pineda LPN Start : 14-May-2016 Active NAPHCON-A, 0.025-0.3% (Ophthalmic Solution) 1-2 gtt gtt up to qid prn for redness/itching for 0 days Quantity: 1 {Each} Refills: 0 Ordered:20-Jan-2016 Linda Houston MD Start : 20-Jan-2016 Active Nyamyc 708594 UNIT/GM External Powder uad Powder to affected area(s) bid and prn for 0 days Quantity: 15 {Bottle} Refills: 6 Ordered:19-Nov-2017 Karin Bermudez DO, DO, Kathleen Start : 19-Nov-2017 End : 17-Nov-2013 Active Nystatin 276520 UNIT/GM External Cream uad Cream to affected area(s) bid prn for 7 days Quantity: 1 {Bottle} Refills: 3 Ordered:03-Jun-2018 Karin Bermudez DO, DO, Kathleen Start : 03-Jun-2018 Active Nystatin 748326 UNIT/ML Mouth/Throat Suspension 5 ml ml 5 times day for 10 days Quantity: 250 {Milliliter} Refills: 9 Ordered:03-Apr-2016 Jessica Almanza LPN Start : 03-Apr-2016 Active Nystatin Powder 1 Powder Powder tid for 10 days Quantity: 1 {Bottle} Refills: 3 Ordered:28-Jun-2017 Karin Bermudez DO, DO, Kathleen Start : 28-Jun-2017 Active Pen [place] 31G X 5 MM Miscellaneous 1 (one) Misc qd for 0 days Quantity: 1 [...] for 0 days Refills: 0 Ordered:23-Jun-2011 Long COOK SHIP, Jessica L End : 23-Jun-2011 Inactive LevoFLOXacin [...] for 0 days Refills: 0 Ordered:23-Jun-2011 Long COOK SHIP, Jessica L End : 23-Jun-2011 Inactive MUCINEX FOR KIDS, 100MG/5ML (Oral Liquid) Liquid 15 cc tid 14 days for 0 days Refills: 0 Ordered:23-Jun-2011 Long COOK SHIP, Jessica L Start : 13-Jun-2009 End : [...] Quantity: 30 {Packet} Refills: 2 Ordered:15-May-2016 Long Jessica BOLDEN Start : 14-May-2016 End : 15-May-2016 Inactive [...] nostril qd for 0 days Quantity: 1 {Straughn} Refills: 3 Ordered:09-Apr-2015 Linda Houston MD Start : 09-Apr-2015 End : 20-Jan-2016 Discontinued Comments:This order discontinued per [employer]. MUCOMYST, 20% (Inhalation Solution) 1 bid/prn for 0 days Refills: 0 Ordered:23-Jun-2011 Long COOK SHIP, Jessica L End : 23-Jun-2011 Discontinued Comments:This order discontinued per [employer]. VYTONE, 1-1% (External Cream) Cream bid for 0 days Quantity: 1 {Cream} Refills: 3 Ordered:13-Jun-2009 Long COOK SHIP, Jessica L Start : 13-Jun-2009 End : [...] Comments: See Note; NOTES: [facility] [place] [address] [place] [address] OFFICE VISIT Date of Service: 05/25/18 MR#: [id number] Acct: [id number] Name: MANDY MONTERO Rep #: [id number] : 1990 Provider: Lawrence Weiner MD Age/Sex: 28/F Location: [facility] [place] Status: Signed Assessment AND Plan Problems 1. [...] Signature: Date (if applicable) CC: Sandra Bermudez 24-Jan-2018 Emergency Department Summary Result: Comments: See Note; NOTES: [facility] Medical Records Department [address] [place] [address] Emergency Department Summary 01/24/18 1645 MR#: [id number] Acct: [id number] Name: MANDY MONTERO Rep #: [id number] : 1990 27 From: Stephan Hughes MD [...] Discharged to home Impression: 1. Cellulitis left caro center region 2. Dysuria of unknown etiology 3. History of MRDD 4. History of Propulsid 5. History of chronic respiratory failure on ventilator This note was generated with MineWhat dictation software. It m ay contain incorrect [...] was electronically transmitted to [facility], [facility] What to do if you have Problems For any increased pain, shortness of breath, bleeding, nausea or vomiting, chest pain, or any unexpected problems, contact your Primary Care Provider. Call [facility] ([phone]) or report to the closest Emergency Room. Call 911 if necessary. 01/24/18 3117 <Electronically signed by Stephan Hughes MD> Date Stephan Hughes MD Cosigner Signature (If Indicated): Date CC: Sandra Bermudez DO 10-Dec-2017 Pulmonary Visit Report Result: Comments: See Note; NOTES: [facility] [place] [address] [place] [address] OFFICE VISIT Date of Service: 12/09/17 MR#: [id number] Acct: [id number] Name: MANDY MONTERO Rep #: [id number] : 1990 Provider: Lawrence Weiner MD Age/Sex: 27/F Location: [facility] [place] Status: Signed Assessment AND Plan 1. Chronic [...] Result: Comments: See Note; NOTES: [facility] [address] [place] [address] OFFICE VISIT Date of Service: 09/02/17 MR#: [id number] Acct: [id number] Name: MANDY MONTERO Rep #: [id number] : 1990 Provider: Lawrence Weiner MD Age/Sex: 27/F Location: [facility] [place].PMW Status: Signed Assessment [...] mg (10 mL) PO QDAY PRN allergy ilrvdmteC04 .2 Ok to give through PEG Follow [...] cot with her mother and healthcare veterinary assistant technician. Family reports the patient has had copious [...] Department Summary Result: Comments: See Note; NOTES: [facility] Medical Records Department [address] [place] [address] Emergency Department Summary MR#: [id number] Acct: [id number] Name: MANDY MONTERO Rep #: [id number] : 1990 26 From: Flip Jessica MD [...] . Flip Jessica MD T: NTS JOB: [id number] 03/10/17805 <Electronically signed by Flip Jessica MD> Date Flip Jessica MD Cosigner Signat ure (If Indicated): Date CC: Sandra Bermudez DO Date Dictated: 03/06/171722 Date Transcribed: 03/06/171722 Cell Assembly Pinner: Signed 06-Mar-2017 Discharge Instruction Result: Comments: See Note; NOTES: [facility] Medical Records Department [address] [place] [address] Discharge Instruction 03/06/171719 MR#: [id number] Acct: [id number] Name: ROMELIA MONTERO Rep #: [id number] : 1990 26 From: Flip Jessica MD [...] your Primary Care Provider. Call [facility] ([phone]) or report to the closest Emergency Room. Call 911 if necessary. 03/06/171719 <Electronically signed by Flip Jessica MD> Date Flip Jessica MD Cosigner Signature (If Indicated): Date CC: Sandra Bermudez DO 06-Mar-2017 Chest 1 View Result: Comments: See Note; NOTES: [facility] Imaging Services [address] [place] [address] Verdana 4d Chest 1 View MR#: [id number] Acct: [id number] Name: MANDY MONTERO Rep #: [id number] : 1990 F 26 From: Merritt Bolton MD PCP: Sandra Bermudez DO Status: REG ER Study: Chest 1 View Date of Exam: 03/06/17 Exam# [id number] Ordering Dr: Flip Jessica MD STUDY: X-RAY [...] CC: Flip Jessica MD; Sandra Bermudez DO Cell Assembly Pinner: Signed 06-Mar-2017 Thoracic Spine 3 Views Result: Comments: See Note; NOTES: [facility] Imaging Services [address] [place] [address] Verdana 4d Thoracic Spine 3 Views MR#: [id number] Acct: [id number] Name: MANDY MONTERO Rep # : [id number] : 1990 F 26 From: Merritt Bolton MD PCP: Sandra Bermudez DO Status: REG ER Study: Thoracic Spine 3 Views Date of Exam: 03/06/17 Exam# [id number] Ordering Dr: Flip Jessica MD [facility] DY: X-RAY - THORACIC SPINE REASON [...] CC: Flip Jessica MD; Sandra Bermudez DO Cell Assembly Pinner: Signed 10-Sep-2016 Chest 1 View (Portable) Result: Comments: See Note; NOTES: [facility] Imaging Services [address] [place] [address] Verdana 4d Chest 1 View (Portable) MR#: [id number] Acct: [id number] Name: MANDY MONTERO Rep #: [id number] : 1990 F 26 From: Mandy Chávez MD PCP: Sandra Bermudez DO Status: PRE ER Study: Chest 1 View (Portable) Date of Exam: 09/10/16 Exam# [id number] Ordering Dr: Vinnie Sehr MD STUDY: X-RAY CHEST REASON FOR EXAM: [...] MD at 23:49 EST , Service support [phone], CC: Linden Sher MD; Sandra Bermudez DO Cell Assembly Pinner: Signed 12-Mar-2016 Emergency Department Summary Result: Comments: See Note; NOTES: [facility] Medical Records Department [address] [place] [address] Emergency Department Summary MR#: [id number] Acct: [id number] Name: MANDY MONTERO Rep #: [id number] : 1990 25 From: Joseph Mcgee MD [...] signed by Joseph Mcgee MD> Date Joseph Franciscoigner Signature (If Indicated): Date _ CC: Jewel Baxter; Roe Baxter Date Dictated: 02/29/16112 Date Transcribed: 02/29/16112 Cell Assembly Pinner: Signed 28-Feb-2016 Discharge Instruction Result: Comments: See Note; NOTES: [facility] Medical Records Department [address] [place] [address] [place] [address] Discharge Instruction 02/28/161925 MR#: [id number] Acct: [id number] Name: MANDY MONTERO Rep #: [id number] : 1990 From: Joseph Mcgee MD PCP: [...] problems, contact your doctor. Call [facility] ([phone]) or report to the closest Emergency Room. Call 911 if necessary. 2240 <Electronically signed by Joseph Mcgee MD> Date Joseph Mahoney Signature (If Indicated): Date ___ CC: Roe Baxter 28-Feb-2016 Abdomen/Pelvis without Cont Result: Comments: See Note; NOTES: [facility] Imaging Services [address] [place] [address] Verdana 4d Abdomen/Pelvis without Cont MR#: [id number] Acct: [id number] Name: MADNY MONTERO Rep #: [id number] : 1990 F 25 From: Seymour Villagomez MD PCP: Roe Baxter Status: REG ER Study: Abdomen/Pelvis without Cont Date of Exam: 02/28/16 Exam# [id number] Ordering Dr: Joseph Patton MD STUDY: CT [...] MD at 18:47 EDT , Service support [phone], CC: Roe Baxter; Joseph Mcgee MD Cell Assembly Pinner: Signed 25-Feb-2016 Emergency Department Summary Result: Comments: See Note; NOTES: [facility] Medical Records Department [address] [place] [address] Emergency Department Summary MR#: [id number] Acct: [id number] Name: MIGUELMANDY A Rep #: [id number] : 1990 25 From: Tmoás Willis MD PCP: Roe Baxter Status: DEP [...] C: Roe Baxter MD T: JENNIFER JOB: [id number] 02/25/16 1055 <Electronically signed by Tomás Willis MD> Date Tomás Willis MD Cosigner Signature (If Indicated): Date CC: Roe Baxter Date Dictated: 02/23/161520 Date Transcribed: 02/23/161520 Cell Assembly Pinner: Signed 23-Feb-2016 Discharge Instruction Result: Comments: See Note; NOTES: [facility] Medical Records Department [address] [place] [address] Discharge Instruction 02/23/16 1514 MR#: [id number] Acct: [id number] Name: MANDY MONTERO Rep #: [id number] : 1990 From: Tomás Willis MD PCP: [...] problems, contact your doctor. Call [facility] ([phone]) or report to the closest Emergency Room. Call 911 if necessary. [phone] <Electronically signed by Tomás Willis MD> Date Tmoás Willis MD Cosigner Signature (If Indicated): Date CC: Roe Baxter 28-Jan-2016 Chest 1 View (Portable) Result: Comments: See Note; NOTES: [facility] Imaging Services [address] [place] [address] Verdana 4d Chest 1 View (Portable) MR#: [id number] Acct: [id number] Name: MANDY ACUNA Rep #: [id number] : 1990 F 25 From: Abdirahman Awad MD PCP: Linda Houston MD Status: PRE ER Study: Chest 1 View (Portable) Date of Exam: 01/28/16 Exam# [id number] Ordering Dr: Edita Willis MD STUDY: X-RAY [...] MD at 22:53 EDT , Service support [phone], RAD/Chest 1 View (Portable) IMPRESSION: Retrocar diac density in left lower lobe possibly representing atelectasis or infiltrate. Recommend lateral view for further assessment Electronically Signed: Abdirahman Awad MD at 22:53 EDT , Service support [phone], CC: Linda Houston MD; Tomás Willis MD Cell Assembly Pinner: Signed Family History Unknown Family Member Name [...] kg/m2 Body Surface Area Calculated 1.31 m2 10-Yqq-876453:09 Pulse 18 /min Comments: Pattern: Regular Respiration [...] lb :43 Comments: [facility] Temperature 97 f Comments: Method: Temporal Pulse [...] Arm; Cuff Size: Standard Weight 87 lb 0-Tvg-247096:54 Pulse 86 /min Comments: Pattern: Regular Respiration Rate 16 /min Comments: Pattern: Unlabored BP Systolic 140 mm[Hg] Comments: Patient Position: Sitting; Cuff Location: Left Arm; Cuff Size: Standard BP Diastolic 110 mm[Hg] Comments: Patient Position: Sitting; Cuff Location: Left Arm; Cuff Size: Standard Weight 80 lb Height 0 in Head Circumference 0.00 cm Results Date Description Value Details :37 TSH (42311) Comments: PATIENT NOT FASTINGPERFORMED BY: [email or web address]]Eouznd5477 [facility] [id number] BY: [place] [id number] TSH 1.030 {uIU/mL} (Normal) Range: 0.450-4.500 28-Lix-027815:37 T4, FREE (THYROXINE) Comments: PATIENT NOT FASTINGPERFORMED BY: [facility] [id number] BY: [address] [id number] ([address]) T4,Free(Direct) 0.84 ng/dL (Normal) Range: 0.82-1.77 68-Elu-048446:37 T3, FREE (TRIDOTHYRONINE) Comments: PATIENT NOT FASTINGPERFORMED BY: [employer] [id number] BY: [address] [id number] ([address]) Triiodothyronine (T3), Free 2.6 pg/mL (Normal) Range: 2.0-4.4 :37 CALCIFIDIOL (26199) VIT D Comments: PATIENT NOT FASTINGPERFORMED BY: [employer] [id number] BY: [address] [id number] 25 Vitamin D, 25-Hydroxy 42.6 ng/mL (Normal) Range: 30.0-100.0 Comments: Vitamin D deficiency has been defined by the [place] [facility] and an Endocrine Society practice guideline as alevel of serum 25-OH vitamin D less than 20 ng/mL (1,2).The Endocrine Society went on to further define vitamin Dinsufficiency as a level between 21 and 29 ng/mL (2).1. IOM ([place] of Medicine). 2010. Dietary reference intakes for calcium and D. [place]: The National AcademPellucid Analytics Press.2. Gabbi MF, Singh MCKEON, Pollo JOSEPH, et al. Evaluation, treatment, and prevention of vitamin D deficiency: an Endocrine Society clinical practice guideline. JCEM. 2010; 96(7):1911-30. 64-Ffh-958498:37 TRILEPTAL-OXCARBAZEPINE 691913 Comments: send results to dr sandy storm; PATIENT NOT FASTINGPERFORMED BY: [employer] Pzcqbb0260 [facility] [id number] BY: [employer] [id number] (21656) Oxcarbazepine 49 ug/mL (Abnormal) Range: 10-35 Comments: Detection Limit = 1 34-Urp-455809:37 CBC with auto diff Comments: send results to dr sandy storm; PATIENT NOT FASTINGPERFORMED BY: [employer] Jnqung4162 [facility] [id number] BY: [employer] [id number] (23273) Immature Grans (Abs) 0.0 {x10E3/uL} (Normal) Range: [...] 3.77-5.28 WBC 6.3 {x10E3/uL} (Normal) Range: 3.4-10.8 02-Mgr-385712:37 METABOLIC PANEL, Comments: send results to dr delgado too; PATIENT NOT FASTINGPERFORMED BY: CB [facility] Nugwsj6679 [facility] [id number] BY: BN [facility] Cglewjpixt0825 [facility] [id number] COMPREHENSIVE (15479) ALT (SGPT) 38 [iU]/L (Abnormal) Range: 0-32 [...] 6-20 Glucose 237 mg/dL (Abnormal) Range: 65-99 94-Gas-241752:37 HGB A1C (66862) Comments: PATIENT NOT FASTINGPERFORMED BY: CB [facility] Sxjxkq5656 [facility] [id number] BY: BN [facility] [address] [id number] Hemoglobin A1c 6.3 % (Abnormal) Range: 4.8-5.6 Comments: . Prediabetes: 5.7 - 6.4 Diabetes: >6.4 Glycemic control for adults with diabetes: <7.0 25-Mqv-391775:00 Urinalysis, Complete Comments: How was Urine Obtained? [facility] [address] [place], [address] MUCUS, URINE 0 SEEN {/hpf} (Normal) BACTERIA [...] (Abnormal) CLARITY Clear (Normal) COLOR Yellow (Normal) 23-Hyg-558630:50 Basic Metabolic Profile (BMP) Comments: [facility] [address] [place], [place], [id number] GAP 8 (Normal) Range: 5-15 CO2 28.0 [...] A.D.A. criteria.Please note revised GLUCOSE reference range mwyvaxbnb64/02/2018. 07-Pxi-883472:50 CBC W/Diff, Automated Comments: [facility] [address] [place], [place], [address] Absolute Lymph 1.52 {X10_3/ul} (Normal) Range: 0.83-4.51 [...] 4.2-5.4 WBC 6.0 K/mm3 (Normal) Range: 4.4-11.0 83-Yqe-64213:00 Lactic Acid Comments: Yes/No query for Sepsis Lactate Rule [facility] Ty[address]uiybln9317 [facility] [place], [place], [address] LACTIC ACID 2.0 mmol/L (Normal) Range: 0.4-2.0 Comments: Critical Result(s) Called at: 18:33:30 01/24/2018 by:Yohana Kennedy 65-Ycg-964637:39 TSH (01101) Comments: PATIENT NOT FASTINGPERFORMED BY: [facility]3]Ufbiyf8779 [facility] [id number] BY: [address] [id number] TSH 1.150 {uIU/mL} (Normal) Range: 0.450-4.500 19-Jqg-638800:39 METABOLIC PANEL, Comments: PATIENT NOT FASTINGPERFORMED BY: [facility]3]Fkkckr3860 [facility] [id number] BY: [employer] [address] [id number] [facility] ([address]) ALT (SGPT) 18 [iU]/L (Normal) Range: 0-32 [...] Glucose, Serum 138 mg/dL (Abnormal) Range: 65-99 29-Nhx-578794:39 CBC W/AUTO DIFF WBC Comments: PATIENT NOT FASTINGPERFORMED BY: [facility] Mytqcr4977 [facility] [id number] BY: [employer] [id number] ([address]351) Immature Grans (Abs) 0.0 {x10E3/uL} (Normal) Range: [...] 3.77-5.28 WBC 6.6 {x10E3/uL} (Normal) Range: 3.4-10.8 90-Prq-735209:39 TRILEPTAL-OXCARBAZEPINE 090485 Comments: PATIENT NOT FASTINGPERFORMED BY: [employer] Xpywjx6012 [facility] [id number] BY: Related Content Database (RCDb)[address] [id number] (79303) Oxcarbazepine 28 ug/mL (Normal) Range: 10-35 Comments: Detection Limit = 1 55-Wob-568635:39 CALCIFIDIOL (36752) VIT D Comments: PATIENT NOT FASTINGPERFORMED BY: [facility]3]Dgxfbq4104 [facility] [id number] BY: Related Content Database (RCDb)[address] [id number] 25 Vitamin D, 25-Hydroxy 56.3 ng/mL (Normal) Range: 30.0-100.0 Comments: Vitamin D deficiency has been defined by the [place] [facility] and an Endocrine Society practice guideline as alevel of serum 25-OH vitamin D less than 20 ng/mL (1,2).The Endocrine Society went on to further define vitamin Dinsufficiency as a level between 21 and 29 ng/mL (2).1. IOM ([place] of Medicine). 2010. Dietary reference intakes for calcium and D. [place]: The National Academies Press.2. Gabbi MF, Singh MCKEON, Pollo JOSEPH, et al. Evaluation, treatment, and prevention of vitamin D deficiency: an Endocrine Society clinical practice guideline. JCEM. 2010; 96(7):1911-30. 23-Fop-377142:39 HGB A1C (81161) Comments: PATIENT NOT FASTINGPERFORMED BY: [facility]3]Rwjgpf8331 [facility] [id number] BY: [employer] [id number] Hemoglobin A1c 5.7 % (Abnormal) Range: 4.8-5.6 Comments: . Pre-diabetes: 5.7 - 6.4 Diabetes: >6.4 Glycemic control for adults with diabetes: <7.0 :11 THROAT CULTURE (21588) Comments: PATIENT NOT FASTINGPERFORMED BY: [facility].com[place] 9571270 [facility] [id number] Information: SRC:TH Result 1 RRF (Normal) Comments: Routine respiratory jasper Upper Respiratory Culture Final report (Normal) :35 CBC W/Diff, Automated Comments: [facility] [address] [place], [place], [address] Absolute Lymph 1.23 {X10_3/ul} (Normal) Range: 0.83-4.51 [...] 4.2-5.4 WBC 4.9 K/mm3 (Normal) Range: 4.4-11.0 38-Wsj-137394:35 CRP Comments: [facility] [address] [facility] [address] [place], [place], [address] C-REACTIVE PROT < 2.90 mg/L (Normal) Range: 0.0-3.0 Comments: C-Reactive Protein (CRP) provides useful information for thediagnosis, therapy and monitoring of inflammatory processesand associated diseases. For the evaluation of Relative Riskfor Cardiovascular Dise ase, a High Sensitivity CRP (HSCRP)should be ordered. :15 Culture, Nose Comments: [facility] [address] [place], [place], [address] CUN See Note (Normal) Comments: Comments: THICK [...] S(NF) indicates non-formulary drug at [facility]. Ap proval by Infectious Disease Specialist required before non-formulary drugs may be ordered and/or dispensed. Pseudomonas aeroginosa: REACTION Cefepime $ <=1 S Ceftazidime *NF 2 S Ciprofloxacin $ 2 I Gentamicin $ <=1 S Imipenem *NF 1 S Levofloxacin $ 4 I Piperacillin/Tazobactam $$ 8 S Tobramycin $ <=1 S(NF) rocky cates non-formulary drug at [facility]. Approval by Infectious Disease Specialist required before non-formulary drugs may be ordered and/or dispensed. 09-Joz-575397:34 LIPID PANEL (03618) Comments: PATIENT NOT FASTINGPERFORMED BY: [facility] Oauyzr9555 [facility] [id number] BY: [facility] [address] [id number] LDL/HDL Ratio 1.5 {ratio_units} (Normal) Range: 0.0-3.2 Comments: LDL/HDL Ratio Men Women 1/2 Avg.Risk 1.0 1.5 Av g.Risk 3.6 3.2 2X Avg.Risk 6.2 5.0 3X Avg.Risk 8.0 6.1 LDL Cholesterol Calc 76 mg/dL (Normal) Range: 0-99 VLDL Cholesterol Dirk 17 mg/dL (Normal) Range: 5-40 HDL Cholesterol 50 mg/dL (Normal) Triglycerides 84 mg/dL (Normal) Range: 0-149 Cholesterol, Total 143 mg/dL (Normal) Range: 100-199 23-Evz-878678:34 METABOLIC PANEL, Comments: PATIENT NOT FASTINGPERFORMED BY: [facility]3]Qdwqxf2533 [facility] [id number] BY: Related Content Database (RCDb)[address] [id number] COMPREHENSIVE (91209) ALT (SGPT) 20 [iU]/L (Normal) Range: 0-32 [...] Glucose, Serum 137 mg/dL (Abnormal) Range: 65-99 51-Zix-684895:34 CBC with auto diff Comments: PATIENT NOT FASTINGPERFORMED BY: [facility]3]Ubtcpj6814 [facility] [id number] BY: [address] [id number] ([address]) Immature Grans (Abs) 0.0 {x10E3/uL} (Normal) Range: [...] 3.77-5.28 WBC 4.5 {x10E3/uL} (Normal) Range: 3.4-10.8 27-Ihy-626546:34 TRILEPTAL-OXCARBAZEPINE 608407 Comments: PATIENT NOT FASTINGPERFORMED BY: [facility]3]Fjndlo2937 [facility] [id number] BY: [address] [id number] (48119) Oxcarbazepine 23 ug/mL (Normal) Range: 10-35 Comments: Detection Limit = 1 95-Rzn-233006:34 HGB A1C (09341) Comments: PATIENT NOT FASTINGPERFORMED BY: [place].com[place] 9571270 [facility] [id number] BY: [facility] Djsrnrfexs8973 [facility] [id number] Hemoglobin A1c 6.1 % (Abnormal) Range: 4.8-5.6 Comments: . Pre-diabetes: 5.7 - 6.4 Diabetes: >6.4 Glycemic control for adults with diabetes: <7.0 32-Wvj-579766:34 CALCIFIDIOL (92676) VIT D Comments: PATIENT NOT FASTINGPERFORMED BY: [facility] Fgeeqo7060 [facility] [id number] BY: [facility] Pkkxcjtkej2825 [facility] [id number] 25 Vitamin D, 25-Hydroxy 49.1 ng/mL (Normal) Range: 30.0-100.0 Comments: Vitamin D deficiency has been defined by the [place] of[place]icine and an Endocrine Society practice guideline as alevel of serum 25-OH vitamin D less than 20 ng/mL (1,2).The Endocrine Society went on to further define vitamin Dinsufficiency as a level between 21 and 29 ng/mL (2).1. IOM ([place] of Medicine). 2010. Dietary reference intakes for calcium and D. [place]: The National Academies Press.2. Gabbi MF, Singh MCKEON, Pollo JOSEPH, et al. Evaluation, treatment, and prevention of vitamin D deficiency: an Endocrine Society clinical practice guideline. JCEM. 2010; 96(7):1911-30. 19-Hty-073046:15 Culture, Throat Comments: [facility] Dbvkuazeb[address] [place], [address] CUT See Note (Normal) Comments: Culture, ThroatMixed [...] S(NF) indicates non-formulary drug at [facility]. Approval by Infec tious Disease Specialist required before non-formulary drugs may be ordered and/or dispensed. 84-Hfn-43845:30 Culture, Wound Comments: [facility] Mnrqiycbdx[address] [place], [address] CUW See Note (Normal) Comments: Comments: COLLECTED FROM TRACHEA STOMA/DX THICK SPUTUMGram StainGram Stain No organisms seen Wound CultureNo Haemophilus, Streptococcus pneumoniae, beta-hemolytic Streptococcus or Staphylococcus aureu s isolated. Copy of report sent to Infection Control Printer MS#[id number] 12/09/16 9095 DCANNON. ORGANISM 1: Serratia marcescensAmount Growth 1+ [...] S(NF) indicates non-formulary drug at [facility]. Approval by Infectious Disease Specialist required before non-formulary drugs may be ordered and/or dispensed. Pseudomonas aeroginosa: REACTION Cefepime $ <=1 S Ceftazidime *NF <=1 S Ciprofloxacin $ 0.5 S Gentamicin $ <=1 S Imipenem *NF 1 S Levofloxacin $ 1 S Piperacillin/Tazobactam $$ 8 S Tobramycin $ <=1 S(NF) indicates non-formulary drug at [facility]. Approval b y Infectious Disease Specialist required before non-formulary drugs may be ordered and/or dispensed. :37 Base Excess ISTAT Comments: [place] [address] [place] [address] BE ISTAT 6 mmol/L (Abnormal) :37 Bicarbonate ISTAT Comments: [place] [address] [place] [address] HCO3 ISTAT 30 mmol/L (Abnormal) Range: 22-26 Comments: Site = R BrachialAllens Test = NAMode = A-CDevice = VentFIO2 = 40Results To = ED MDTime Given = 2350MV = 4.5VT = 250RR = 21PEEP = 7 :37 Blood Gas Specimen Type Comments: [place] [address] [place] [address] BLD GAS TYPE ART (Normal) 90-Bkb-366848:37 pCO2 - ISTAT 40.0 {mmHg} (Normal) Comments: [place] [address] [place] [address] Range: 35-45 10-Djl-098931:37 pH - I-STAT 7.48 (Abnormal) Comments: [place] [address] [place] [id number] Range: 7.35-7.45 59-Kaq-105030:37 PO2 I-STAT 65 {mmHG} (Abnormal) Comments: [place] [address] JONATHAN Sinha 728301 Range: 75-100 71-Njc-689241:37 SO2 ISTAT 94 % (Abnormal) Comments: [place] [address] J[address] [place] [id number] Range: 95-99 55-Aay-933235:37 Total Carbon Dioxide ISTAT Comments: [place] [address] [place] 395661 TOTAL CO2 ISTAT 31 mmol/L (Normal) 81-Swa-605603:55 Basic Metabolic Profile (BMP) Comments: [facility] Aelncqsbcg[address] [place], [address] GAP 5 (Normal) Range: 5-15 CO2 [...] Range: 70-110 :55 CBC W/Diff, Automated Comments: [facility] Tovnoomocy[address] [place], [address] Absolute Lymph 1.51 {X10_3/ul} (Normal) Range: [...] 4.2-5.4 WBC 4.6 K/mm3 (Normal) Range: 4.4-11.0 8-Xbl-598203:52 Anaerobic and Aerobic Comments: PERFORMED BY: [facility]6370 [facility] [id number] Information: buttock SRC:WO Culture Antimicrobial MIHEAD (Normal) [...] 72 hours. Anaerobic Culture Final report (Normal) 2-Kod-670574:39 CBC With Differential/Platelet Comments: PERFORMED BY: CB [facility] Wrnorp7192 [facility] [id number] BY: [facility] Bzdcgdnqhy0886 [facility] [id number] Immature Grans (Abs) 0.0 {x10E3/uL} (Normal) Range: [...] :39 Comp. Metabolic Panel Comments: PERFORMED BY: Nativis [facility] [id number] BY: Related Content Database (RCDb)[address] [id number] (14) ALT (SGPT) 27 [iU]/L (Normal) Range: [...] Glucose, Serum 65 mg/dL (Normal) Range: 65-99 0-Heh-121242:39 Oxcarbazepine (Trileptal),S Comments: PERFORMED BY: Nativis [facility] [id number] BY: [address] [id number] Oxcarbazepine 24 ug/mL (Normal) Range: 10-35 Comments: Detection Limit = 1 :39 TSH 1.640 {uIU/mL} Comments: PERFORMED BY: Related Content Database (RCDb)[address] [id number] BY: [address] [id number] (Normal) Range: 0.450-4.500 :39 Vitamin B12 and Folate Comments: PERFORMED BY: [employer].com[address] [id number] BY: [address] [id number] Folate (Folic Acid), 8.0 ng/mL (Normal) Comments: A serum folate concentration of less than 3.1 ng/mL isconsidered to represent clinical deficiency. Serum Vitamin B12 1048 pg/mL Range: 211-946 (Abnormal) : Vitamin D, 40.7 ng/mL (Normal) Comments: PERFORMED BY: [place] 9571270 [facility] [id number] BY: [address] [id number] 39 25-Hydroxy Range: 30.0-100.0 Comments: Vitamin D deficiency has been defined by the [place] ofKeenan Private Hospitalcine and an Endocrine Society practice guideline as alevel of serum 25-OH vitamin D less than 20 ng/mL (1,2).The Endocrine Society went on to further define vitamin Dinsufficiency as a level between 21 and 29 ng/mL (2).1. IOM ([place] of Medicine). 2010. Dietary reference intakes for calcium and D. [place]: The National Academies Press.2. Gabbi MF, Singh MCKEON, Pollo JOSEPH, et al. Evaluation, treatment, and prevention of vitamin D deficiency: an Endocrine Society clinical practice guideline. JCEM. 2010; 96(7):1911-30. 00-Wxe-000310:00 Urinalysis, Complete Comments: Order Date: 02/28/16How was Urine Obtained? [facility] Jcihvxrxku[address] [place], [place], [id number] MUCUS, URINE RARE {/hpf} (Normal) BACTERIA 0 [...] CLARITY Sl. Cloudy (Normal) COLOR Yellow (Normal) 16-Uqw-218706:00 Basic Metabolic Profile (BMP) Comments: [facility] [address]wxm[address]azmi[address] [place], [place], [id number] GAP 8 (Normal) Range: 5-15 CO2 26.0 [...] 7-18 GLU 84 mg/dL (Normal) Range: 70-110 38-Sor-543147:00 CBC W/Diff, Automated Comments: [facility] Qxjofybiao[address] [place], [place], [address] Absolute Lymph 1.11 {X10_3/ul} (Normal) Range: 0.83-4.51 [...] 4.2-5.4 WBC 5.5 K/mm3 (Normal) Range: 4.4-11.0 21-Krs-779815:00 Lactic Acid Comments: [facility] Ikmscoemqp[address] [place], [place], [id number] LACTIC ACID 1.6 mmol/L (Normal) Range: 0.4-2.0 18-Rty-424923:00 Lipase Comments: [facility] N[address] [place], [place], [address] LIPASE 177 U/L (Normal) Range: 73-393 46-Bhp-782876:00 Liver Profile Comments: [facility] [address] [place], [place], [address] D BILI 0.08 mg/dL (Normal) Range: 0.00-0.30 [...] (Normal) Range: 6.4-8.2 :30 CDIFF (Molecular) Comments: [facility] [address] [place], [place], [address] CDIFF See Note (Normal) Comments: Cdiff-MolecularC. Diff DNA Negative- No toxigenic C. Diff DNA Detected :30 ENTERIC PATHOGEN PANEL STOOL Comments: [address] [place], [place], [address] EP PANEL See Note (Normal) Comments: EP [...] Detected :30 Stool Lactoferrin/WBC Comments: [facility] Hkpsicnsix[address] [place], [address] WBCST See Note (Normal) Comments: Stool Lacto/WBCFecal WBC Lactoferrin Negative: No Fecal WBC Lactoferrin present 19-Feb-20167:30 Stool Occult Blood iFOB Comments: [facility] Vcdqxjlmrm[address] [place] [place], [address] STOB See Note (Normal) Comments: STOB iFOBOccult Blood Negative 00-Nyd-148414:35 Urinalysis, Complete Comments: How was Urine Obtained? [facility] Wanqqukkrt39[address] [place], [address] MUCUS, URINE 0 SEEN {/hpf} [...] (Normal) CLARITY Cloudy (Normal) COLOR Yellow (Normal) 59-Hie-627657:00 CBC W/Diff, Automated Comments: [facility] Bojgrquuiw[address] [place], [address] SMEAR COMMENT SCANNED (Normal) Comments: [...] 4.2-5.4 WBC 6.8 K/mm3 (Normal) Range: 4.4-11.0 51-Rsx-156505:00 Comprehensive Metabolic Profil Comments: [facility] [address]wh[address]lyp5[address] [place], [address] GAP 9 (Normal) Range: 5-15 CO2 29.0 [...] 7-18 GLU 84 mg/dL (Normal) Range: 70-110 43-Alb-783844:00 Lactic Acid Comments: [facility] [address] [place], [address] LACTIC ACID 2.6 mmol/L (Abnormal) Range: 0.4-2.0 24-Olg-815121:00 Partial Thromboplast Time Comments: [facility] [address] [place], [place], [address] PTT 26.7 s (Normal) Range: 24.1-36.2 98-Imi-104588:00 Prothrombin Time w/INR Comments: [facility] [address] [place], [place], [address] INR 1.0 (Normal) PROTIME 13.1 s (Normal) Range: 11.7-14.9 :25 PREALBUMIN (40244) Comments: PERFORMED BY: [facility]]Guwtqr4546 [facility] [id number] Prealbumin 27 mg/dL (Normal) Range: 9-31 Comments: [...] - 36 >70 years 9 - 32 11-Ftz-843016:16 Clostridium difficile Toxin Comments: PERFORMED BY: [facility] Vhllqc2067 [facility]Former[facility] [id number] A+B, EIA (68167) C difficile Toxins A+B, EIA Negative (Normal) 86-Nwm-386210:00 Culture, Urine Comments: [facility] Weutlt[address]wrp[address] [place], [address] CUUR See Note (Normal) Comments: Urine CultureCulture exhibits no growth. 80-Gqv-376308:00 Urinalysis, Complete Comments: How was Urine Obtained? CLEAN [facility] [address]ymlk[address] [place], [address] MUCUS, URINE 0 SEEN {/hpf} [...] CLARITY Sl. Cloudy (Normal) COLOR Yellow (Normal) 95-Ykf-957189:30 Culture, Urine Comments: [facility] D[address]yjaxypj[address] [place], [place], [phone] CUUR See Note (Normal) Comments: Urine CultureORGANISM 1: Enterococcus faecalisColony Count >100,000 Enterococcus faecalis: REACTION Ampicillin $ <=2 S Benzylpenicillin NF 2 S Ciprofloxacin $ <=0.5 S Gentamicin SYN-S S Levofloxacin $ 1 S Linezolid $$$$ 2 S Nitrofurantoin $ <=16 S Streptomycin $ SYN- S S Tetracycline NF >=16 R Vancomycin $ 1 S(NF) indicates non-formulary drug at [facility]. Approval by Infectious Disease Specialist required before non-formulary drugs may be ordered and/or dispensed. * CLSI guidelines does not recommend testing of cephalosporins. This interpretation is deduced from Beta-lactam/penicillin results. 71-Soi-793910:30 Urinalysis, Complete Comments: How was Urine Obtained? [facility] Bexvwyamhe97[address] [place], [address] MUCUS, URINE 0 SEEN {/hpf} [...] CLARITY Sl. Cloudy (Normal) COLOR Yellow (Normal) 39-Leo-534903:00 ENTERIC PATHOGEN PANEL STOOL Comments: [facility] Wiougqjcli[address] [place], [place], [address] EP PANEL See Note (Normal) Comments: RESULTS CALLED TO DR. HOUSTON 09/10/15 @1953 BY [facility].EP PANEL STOOLNot detected for Campylobacter group, [...] DetectedVIBRIO Not DetectedNorovirus Not DetectedRotavirus Not Detected 51-Ozc-994945:00 Stool Lactoferrin/WBC Comments: [facility] Gnylqxwmwh[address] [place], [place], [address] WBCST See Note (Normal) Comments: RESULTS CALLED TO DR. HOUSTON 09/10/15 @1952 BY THADDEUS.Stool Lacto/WBCFecal WBC Lactoferrin Negative: No Fecal WBC Lactoferrin present 27-Btx-155852:00 Stool Occult Blood iFOB Comments: [facility] [address]ot[address]qxbm[address] [place], [place], [phone] STOB See Note (Normal) Comments: RESULTS CALLED TO DR. HOUSTON 09/10/15 @1952 BY THADDEUS.STOB iFOBOccult Blood Negative 20-Jan-20161:29 CBC with auto diff Comments: PERFORMED BY: CB [facility] Quazvo5247 [facility] [id number] BY: [facility] [address] [id number] ([address]) Immature Grans (Abs) 0.0 {x10E3/uL} (Normal) Range: [...] METABOLIC PANEL, Comments: PERFORMED BY: CB [facility] Vzitpe8770 [facility] [id number] BY: BN [facility] [address] [id number] COMPREHENSIVE (44302) ALT (SGPT) 17 [iU]/L (Normal) Range: 0-32 [...] 73 mg/dL (Normal) Range: 65-99 :29 CALCIFIDIOL (73080) VIT D Comments: PERFORMED BY: Grapeshotlin6370 [facility] [id number] BY: [employer] [id number] 25 Vitamin D, 25-Hydroxy 39.5 ng/mL (Normal) Range: 30.0-100.0 Comments: Vitamin D deficiency has been defined by the [place] ofKe[facility] Private Hospitalcine and an Endocrine Society practice guideline as alevel of serum 25-OH vitamin D less than 20 ng/mL (1,2).The Endocrine Society went on to further define vitamin Dinsufficiency as a level between 21 and 29 ng/mL (2).1. IOM ([place] of Medicine). 2010. Dietary reference intakes for calcium and D. [place]: The National Academies Press.2. Gabbi MF, Singh MCKEON, Pollo JOSEPH, et al. Evaluation, treatment, and prevention of vitamin D deficiency: an Endocrine Society clinical practice guideline. JCEM. 2010; 96(7):1911-30. :29 TRILEPTAL-OXCARBAZEPINE [id number] Comments: PERFORMED BY: Grapeshotlin6370 [facility] [id number] BY: [address] [id number] ([address]) Oxcarbazepine 38 ug/mL (Abnormal) Range: 10-35 Comments: Detection Limit = 1 97-Xyd-872331:30 CBC W/Diff, Automated Comments: [facility] [address]ptwxbo[address] [place], [address] Absolute Lymph 0.90 {X10_3/ul} (Normal) Range: 0.83-4.51 [...] 4.2-5.4 WBC 5.2 K/mm3 (Normal) Range: 4.4-11.0 15-Kvp-094870:30 Comprehensive Metabolic Profil Comments: [facility] Antrpwbeqq[address] [place], [address] GAP 8 (Normal) Range: 5-15 CO2 26.0 [...] 200 mg/dLsuggests DIABETES MELLITUS per A.D.A. criteria. 29-Bmz-301610:30 Lipid Profile Comments: [facility] Vqkxzuujqa1836 [facility]. [place], [place], [address] VLDL 38 mg/dL (Normal) Range: 5-40 LDL [...] 200-240 mg/dL Borderline >240 mg/dL High Risk 85-Ldt-250091:30 Prealbumin Comments: [facility] Jyidhivzac7335 [facility] [place], [address] PREALBUMIN 26.0 mg/dL (Normal) Range: 20.0-40.0 51-Dcc-546233:30 Thyroid Stim Hormone (TSH) Comments: [facility] [address]jm[address] [place], [address] TSH 1.02 {uIU/mL} (Normal) Range: 0.358-3.74 74-Ohg-756598:30 Trileptal-Oxcarbazepine Comments: [facility] (refer to report for specific site)refer to report for address and phone number TRILEPT [id number] 38 ug/mL (Abnormal) Range: 10-35 Comments: Detection Limit = 1Performed at: [facility] [address] [id number] Director: Reji Gibson MD, Phone: [phone] 40-Dpg-249308:30 Vitamin D,25 Hydroxy Comments: [facility] [address] [place], [address] Vitamin D 25-OH 38.4 ng/mL (Normal) Comments: Vitamin D 25(OH) Status Range Deficiency <20 ng/mL (50nmol/L) Insuffciency 20 - 30 ng/mL (50 - 75 nmol/L) Sufficiency 30 - 100 ng/mL (75 - 250 nmol/L) Toxicity >100 ng/mL (>250 nmol/L) 9-Npk-894418:45 CBC-Complete Blood Cnt No Diff Comments: Test performed at:[facility] Gpvdunulkx[address] [place] [address] MPV 10.5 fL (Normal) Range: [...] Folic Acid Supplements? NTest performed at:[facility] Fegfixxpnf25[address] [place] [address] GAP 7 (Normal) Range: 5-15 [...] <126 mg/dLsuggests IMPAIRED HOMEOSTASIS per A.D.A. criteria. 3-Eri-319496:45 CRP Comments: Is Patient Taking Vitamins or Folic Acid Supplements? NTest performed at:[facility] [address]xahjwemx[address] [place] [address] C-REACTIVE PROT < 2.90 mg/L (Normal) Range: 0.0-3.0 Comments: C-Reactive Protein (CRP) provides useful information for thediagnosis, therapy and monitoring of inflammatory processesand associated diseases. For the evaluation of Relative Riskfor Cardiovascular Dise ase, a High Sensitivity CRP (HSCRP)should be ordered. :45 Erythrocyte Sed Rate Comments: Test performed at:[facility] [address] [place] [address] SED RATE 13 mm/h (Normal) Range: 0-20 :45 Folates, (Folic Acid) Comments: Is Patient Taking Vitamins or Folic Acid Supplements? NTest performed at:[facility] Bcnduaadec33[address] [place] [address] FOLATES 15.70 ng/mL (Normal) Range: 3.1-17.5 :45 Free T3 Comments: Is Patient Taking Vitamins or Folic Acid Supplements? NTest performed at:[facility] K[address]qftfgvh[address] [place] [address] FREE T3 2.4 pg/mL (Normal) Range: 2.18-3.98 :45 Miscellaneous Lab Procedure Comments: Test(s) Ordered: OXCARBAZEPINE, #[id number], RED TOP SERUM/RFTest performed at:[facility] F[address]lzonyo[address] [place] [address] MISC Comments: Oxcarbazepine (Trileptal), S Oxcarbazepine 35 ug/mL Ref: -35 Detection Limit=1 TESTING PERFOR MED AT [facility] (Normal) rp. ORIGINAL REPORT ON FILE IN LAB CONTAINS ADDITIONAL TEST SITE INFORMATION. TEST :45 Prealbumin Comments: Is Patient Taking Vitamins or Folic Acid Supplements? NTest performed at:[facility] Ddkbsxqycv8[address] [place] [address] PREALBUMIN 30.9 mg/dL (Normal) Range: 20.0-40.0 :45 ,Serum,hCG Quali. Comments: Test performed at:[facility] [address] [place] [address] HCGSQUAL NEGATIVE {Negative} (Normal) Range: 0-9 Nonpreg HCG Qual triggr < 1 m[iU]/mL (Normal) 9-Xck-910086:45 Prolactin Comments: Is Patient Taking Vitamins or Folic Acid Supplements? NTest performed at:[facility] Uk[address] [place] [address] PROLACTIN 9.5 ng/mL (Normal) Comments: NORMAL REFERENCE RANGES FEMALE NON- 2.2 - 30.3 ng/mL 8.1 - 347.6 ng/mL POST-MENOPAUSAL 0.7 - 3 1.5 ng/mL MALE 2.5 - 17.4 ng/mLNEW TEST METHOD AND REFERENCE RANGES FEBRUARY 01, 201218-Dec-20148-Zsb-774955:45 T4 Free Direct Comments: Is Patient Taking Vitamins or Folic Acid Supplements? NTest performed at:[facility] [address] [place] [address] T4 FREE DIRECT 0.74 ng/dL (Abnormal) Range: 0.76-1.46 7-Qnd-421672:45 Thyroid Stim Hormone (TSH) Comments: Is Patient Taking Vitamins or Folic Acid Supplements? NTest performed at:[facility] [address] [place] [address] TSH 1.39 {uIU/mL} (Normal) Range: 0.358-3.74 8-Kxv-625918:45 Urinalysis, Routine (Dipstick) Comments: How was Urine Obtained? Urine, RandomTest performed at:[facility] [address] [place] [address] LEUK ESTERASE 500 /ul (Abnormal) OCCULT BLOOD-UR Negative /ul (Normal) NITRITE UR Negative (Normal) UROBILI Normal mg/dL (Normal) PROT DIPSTX Negative mg/dL (Normal) pH UR 8.0 (Normal) Range: 5.0 - 8.0 SP.GR. DIPSTX 1.010 (Normal) Range: 1.002-1.030 KETONE UR Negative mg/dL (Normal) BILIRUBIN URINE Negative mg/dL (Normal) GLUCOSE, UR Normal mg/dL (Normal) CLARITY Sl. Cloudy (Normal) COLOR Yellow (Normal) 0-Nwm-757165:45 Vitamin B12 1089 pg/mL (Abnormal) Comments: Test performed at:[facility] Hsotcexcnd3423 [facility] [place] [address] Range: 211-911 7-Mht-756737:45 Vitamin D,25 Hydroxy Comments: Test performed at:[facility] M[address]ogyq9525 [place] [address] Vitamin D 25-OH 23.9 ng/mL (Normal) Comments: Vitamin D 25(OH) Status Range Deficiency <20 ng/mL (50nmol/L) Insuffciency 20 - 30 ng/mL (50 - 75 nmol/L) Sufficiency 30 - 100 ng/mL (75 - 250 nmol/L) Toxicity >100 ng/mL (>250 nmol/L) 88-Fne-250601:43 ALBUMIN SERUM (04057) Comments: PATIENT NOT FASTINGPERFORMED BY: [place] [id number] Albumin, Serum 4.7 g/dL (Normal) Range: 3.5-5.5 33-Fmn-089561:43 PREALBUMIN (59976) Comments: PATIENT NOT FASTINGPERFORMED BY: Project Manager[address] [id number] Prealbumin 29 mg/dL (Normal) Range: 20-40 78-Tcv-534289:21 ANJELICA CULTURE-OTHER (15643) Comments: PATIENT NOT FASTINGPERFORMED BY: Project Manager70 [facility]ON[facility] [id number] Information: SRC:THRT [id number] Result 1 RRF (Normal) Comments: Routine respiratory jasper Upper Respiratory Culture Final report (Normal) 24-Frn-296939:43 PROLACTIN (43233) Comments: PATIENT NOT FASTINGPERFORMED BY: [facility]6370 [facility] [id number] Prolactin 13.8 ng/mL (Normal) Range: 4.8-23.3 :43 T3, FREE (TRIDOTHYRONINE) (04848) Comments: PATIENT NOT FASTINGPERFORMED BY: [facility]6370 [facility] [id number] Triiodothyronine,Free,Serum 3.3 pg/mL (Normal) Range: 2.0-4.4 :43 T4, FREE (THYROXINE) (37027) Comments: PATIENT NOT FASTINGPERFORMED BY: [facility]6370 [facility] [id number] T4,Free(Direct) 1.14 ng/dL (Normal) Range: 0.82-1.77 64-Jrw-071339:43 TSH (43124) Comments: PATIENT NOT FASTINGPERFORMED BY: [place] 2651270 [facility] [id number] Information: [id number] TSH 1.580 {uIU/mL} (Normal) Range: 0.450-4.500 97-Dyg-281210:00 CBCD ANC 1.8 {X10_3/uL} (Abnormal) Range: 2.0-7.7 [...] 4.2-5.4 WBC 3.2 K/mm3 (Abnormal) Range: 4.4-11.0 : CDIFF See Note (Normal) Comments: FAXED TO GD1.227 C. Diff DNA Positive-Toxigenic C. Difficile DNA Detected CUST SHIGA See Note (Normal) CULST See [...] spora, or Mi crosporidia. TESTING PERFORMED AT [facility]. ORIGINAL REPORT ON FILE IN LAB CONTAINS ADDITIONAL TEST SITE INFORMATION. Ova/Parasite Exam NO OVA, CYSTS, OR PARASITES FOUND. STOB See Note (Normal) Comments: Occult Blood Negative WBCST See Note (Normal) Comments: Fecal WBC Lactoferrin Negative: No Fecal WBC Lactoferrin present 22-Pqf-325562:15 CDIFF See Note (Normal) Comments: C. Diff DNA Negative- No toxigenic C. Diff DNA Detected 9-Gfn-000472:55 Oxcarbazepine (Trileptal),S Comments: PERFORMED BY: Related Content Database (RCDb)[place] 9348670 [facility] [id number] BY: [address] [id number] Oxcarbazepine 32 ug/mL (Normal) Range: 10-35 Comments: Detection Limit = 1 :55 CALCIFIDIOL (91989) VIT D Comments: PERFORMED BY: Related Content Database (RCDb)[facility]6370 [facility] [id number] BY: [address] [id number] 25 Vitamin D, 25-Hydroxy 27.4 ng/mL (Abnormal) Range: 30.0-100.0 Comments: Vitamin D deficiency has been defined by the [place] of[place]icine and an Endocrine Society practice guideline as alevel of serum 25-OH vitamin D less than 20 ng/mL (1,2).The Endocrine Society went on to further define vitamin Dinsufficiency as a level between 21 and 29 ng/mL (2).1. IOM ([place] of Medicine). 2010. Dietary reference intakes for calcium and D. [place]: The National Academies Press.2. Gabbi MF, Singh [place], Pollo JOSEPH, et al. Evaluation, treatment, and prevention of vitamin D deficiency: an Endocrine Society clinical practice guideline. JCEM. 2010; 96(7):1911-30. :55 Folate (25443) Comments: PERFORMED BY: [facility] ([facility]3]Ywyeik1544 [facility] [id number] BY: [address] [id number] Folate (Folic Acid), Serum 16.3 ng/mL (Normal) Comments: A serum folate concentration of less than 3.1 ng/mL isconsidered to represent clinical deficiency. :55 VITAMIN B-12 (CYANOCOBALAMIN) Comments: PERFORMED BY: [employer] Slmvft0394 [facility] [id number] BY: [address] [id number] (54042) Vitamin B12 889 pg/mL (Normal) Range: 211-946 :55 TSH (09708) Comments: PERFORMED BY: [employer]70 [facility] [id number] BY: [address] [id number] TSH 1.670 {uIU/mL} (Normal) Range: 0.450-4.500 :55 SED RATE ERYTHROCYTE Comments: PERFORMED BY: [employer] [facility] [id number] BY: [address] [id number] (70742) Sedimentation Rate-Westergren 6 mm/h (Normal) Range: 0-32 :55 METABOLIC PANEL, Comments: PERFORMED BY: [employer] [facility] [id number] BY: [address] [id number] COMPREHENSIVE (24503) ALT (SGPT) 11 [iU]/L (Normal) Range: 0-32 [...] may adversely affect serumChemistries. :55 C-REACTIVE PROTEIN (91796) Comments: PERFORMED BY: [employer] [facility] [id number] BY: [employer] [facility] [address] [id number] C-Reactive Protein, Quant 0.9 mg/L (Normal) Range: 0.0-4.9 :55 CBC (AUTO) (17358) Comments: PERFORMED BY: [employer]370 [facility] [id number] BY: [employer] [id number] Platelets 213 {x10E3/uL} (Normal) Range: 140-415 Comments: [...] of these values in the reference population. 5-Blt-195116:29 ANJELICA CULTURE-OTHER (09008) Comments: PATIENT NOT FASTINGPERFORMED BY: [facility]6370 [facility] [id number] Information: SRC:THRT [id number] Result 1 RRF (Normal) Comments: Routine respiratory jasper Upper Respiratory Culture Final report (Normal) 1-Zri-674033:03 Rapid Strep Test, Office (24742) Rapid Strep Test, Negative (Normal) Office 35-Gzs-179330:55 CDIF See Note (Normal) Comments: A positive [...] in these cases. C. DIFF ANTIGENS POSITIVE 67-Osx-644731:30 CDIF See Note (Normal) Comments: RESULTS CALLED [...] Comments: C. DIFF ANTIGENS NEGATIVE :2 TRILEPT 236872 20 ug/mL (Normal) Range: 10-35 4 Comments: Detection Limit = 1Performed at: [facility] [id number] Director: Reji Gibson MD, Phone: [phone] :1 C DIF TOXIN/AG See Note (Normal) Comments: RESULTS CALLED TO 06/23/11 VONDA BURTON.REPORT READ BACK BY SAME . * This is an amended result. * A 5 prior result that was reported as final has been changed.06/23/112004 by IESHAPreviously reported as: C. DIFF ANTIGENS POSITIVE :46 COMP METABOLIC GAP 11 (Normal) Range: 5-15 [...] 4.2-5.4 WBC 7.2 K/mm3 (Normal) Range: 4.4-11.0 8-Nvy-727209:49 CULTURE, THROAT See Note (Normal) Comments: Normal throat jasper isolated. No beta-hemolyticstreptococcus isolated. :00 C DIF TOXIN/AG See Note (Normal) Comments: C. DIFF ANTIGENS NEGATIVE 00-Gks-701120:00 C DIF TOXIN/AG See Note (Normal) Comments: [...] KRISTIAN MILLER.REPORT READ BACK BY SAME . CULTURE, STOOL [...] Cyclospora, or Microspo ridia. TESTING PERFORMED AT [facility]. ORIGINAL REPORT ON FILE IN LAB CONTAINS ADDITIONAL TEST SITE INFORMATION. OVA/ PARASITES EXAM NO OVA, CYSTS, OR PARASITES FOUND. :21 WBC,STOOL See Note (Normal) Comments: RESULTS CALLED TO OFFICE TO RejiNPYFZGXH78/04/10 1151 KRISTIAN MILLER.REPORT READ BACK BY SAME . Comments: FECAL WBCs NONE SEEN :20 C DIF TOXIN/AG See Note (Normal) Comments: COPY OF REPORT SENT TO INFECTION CONTROL 06/25/10 PADMINI.RESULTS CALLED TO CHRISTEN 06/25/10 1432 CRISTA BUSTAMANTE. DIFF ANTIGENS POSITIVE :20 CUL STOOL/SHIG CULTURE, [...] Cyclospora, or Microspo ridia. TESTING PERFORMED AT [facility]. ORIGINAL REPORT ON FILE IN LAB CONTAINS ADDITIONAL TEST SITE INFORMATION. OVA/ PARASITES EXAM NO OVA, CYSTS, OR PARASITES FOUND. :20 WBC,STOOL See Note (Normal) Comments: FECAL WBCs NONE SEEN 23-Zni-839364:14 C DIF TOXIN See Note (Normal) :44 O AND P See Note (Normal) Comments: OVA AND PARASITES EXAM, ROUTINE These results were obtained using wet preparation(s) and trichrome stained smear. This test does not include testing for Crytosporidium parvum, Cyclospora, or Microspo ridia. TESTING PERFORMED AT [facility]. ORIGINAL REPORT ON FILE IN LAB CONTAINS ADDITIONAL TEST SITE INFORMATION. OVA/ PARASITES EXAM NO OVA, CYSTS, OR PARASITES FOUND. :44 OCCULT BLD,iFOB See Note (Normal) Comments: OCCULT BLOOD Negative 42-Akf-807644:48 C DIF TOXIN See Note (Normal) Comments: [...] Cyclospora, or Microspo ridia. TESTING PERFORMED AT [facility]. ORIGINAL REPORT ON FILE IN LAB [...] :00 PHOS 3.2 mg/dL (Normal) Range: 2.5-4.9 13-Jun-20090:00 TSH 1.63 {uIU/mL} (Normal) Range: 0.358-3.74 29-Xmd-793450:00 CULTURE, SPUTUM GRAM STAIN See Note (Normal) Comments: GRAM STAIN RARE WHITE BLOOD CELLS RARE GRAM POSITIVE COCCI RARE GRAM NEGATIVE RODS Plan of Care Name Dates Details Instructions Convulsions : Reviewed V Belt Coverer Letter Indication: Convulsions Neuromuscular scoliosis : Follow [...] Cystitis, acute Planned Observations URINE ANJELICA CULTURE-IDENTIFICATN (14789)Indication: Abnormal urine On: 3-Pzd-333776:25 Request MRSA Culture (62761)Indication: Thick sputum On: 6-Orp-210774:32 Request Anaerobic & Aerobic Culture (19207)Indication: Thick sputum On: 00-Fuz-398296:46 Request Comments: collected from trachea stoma Anaerobic & Aerobic Culture (78712)Indication: Cellulitis of groin, right On: 7-Ggl-278531:44 Request TRILEPTAL-OXCARBAZEPINE [id number] (85751)Indication: Diarrhea On: :24 Request VITAMIN B12 AND FOLATES (78862)Indication: Diarrhea On: 2-Vna-362249:24 Request CALCIFEDIOL (88583)Indication: Diarrhea On: :24 Request CALCIFEDIOL (98603)Indication: Diarrhea On: :23 Request TSH (THYROID STIMULATING HORMONE) (65735)Indication: Diarrhea On: :23 Request METABOLIC PANEL, COMPREHENSIVE (69067)Indication: Diarrhea On: :23 Request CBC, PLATELETS & AUT DIFF (68881)Indication: Diarrhea On: :23 Request OVA & PARASITE DIR SMEAR (61277)Indication: Diarrhea On: 66-Mri-927620:46 Request ANJELICA CULTURE-STOOL (19008)Indication: Diarrhea On: 81-Yhf-424464:46 Request OCCULT BLOOD FECES SCREEN (15413)Indication: Diarrhea On: :46 Request LEUKOCYTE COUNT, FECAL (47647)Indication: Diarrhea On: :46 Request C-DIFFICILE, STOOL (70285)Indication: Diarrhea On: :46 Request OVA & PARASITE DIR SMEAR (15124)Indication: C. difficile diarrhea On: :50 Request OCCULT BLOOD FECES SCREEN (64438)Indication: C. difficile diarrhea On: :50 Request ANJELICA CULTURE-STOOL (97300)Indication: C. difficile diarrhea On: :50 Request LEUKOCYTE COUNT, FECAL (25429)Indication: C. difficile diarrhea On: :50 Request C-DIFFICILE, STOOL (46638)Indication: C. difficile diarrhea On: :49 Request Clostridium difficile Culture (90903)Indication: Diarrhea On: :52 Request URINALYSIS, W/ MICRO (44695)Indication: Dysuria On: :56 Request URINE ANJELICA CULTURE-SISSY COL COUNT (17903)Indication: Dysuria On: :54 Request OCCULT BLOOD FECES SCREEN (35985)Indication: Diarrhea On: :01 Request LEUKOCYTE COUNT, FECAL (24024)Indication: Diarrhea On: :05 Request ANJELICA CULTURE-STOOL (42249)Indication: Diarrhea On: :05 Request Clostridium difficile Toxin A+B, EIA (70678)Indication: Diarrhea On: :05 Request TRILEPTAL-OXCARBAZEPINE 016721 (41954)Indication: Convulsions On: 55-Kal-678469:55 Request PREALBUMIN (43371)Indication: Nutritional assessment On: :45 Request CALCIFIDIOL (26765) VIT D 25Indication: Vitamin D deficiency On: :44 Request TSH (19615)Indication: Hypertension On: :44 Request METABOLIC PANEL, COMPREHENSIVE (42044)Indication: Hypertension On: :44 Request LIPID PANEL (30134)Indication: Hypertension On: :44 Request CBC with auto diff (60668)Indication: Hypertension On: 3-Aei-464484:44 Request Metabolic Panel, Basic (57366)Indication: Abnormal urine On: :03 Request VITAMIN B12 AND FOLATES (74669)Indication: Abnormal urine On: :03 Request CALCIFEDIOL (42858)Indication: Abnormal urine On: :03 Request Comments: vit d3 URINE ANJELICA CULTURE-SISSY COL COUNT (78800)Indication: Abnormal urine On: :52 Request TRILEPTAL-OXCARBAZEPINE 825407 (44586)Indication: Cerebral palsy On: :46 Request HCG Qualitative, Serum (19426)Indication: Amenorrhea On: :45 Request PROLACTIN (64891)Indication: Amenorrhea On: :44 Request PREALBUMIN (49333)Indication: Cerebral palsy On: :43 Request URINALYSIS (99581)Indication: Fatigue On: :43 Request T3, FREE (TRIDOTHYRONINE) (34806)Indication: Fatigue On: :43 Request T4, FREE (THYROXINE) (20394)Indication: Fatigue On: :43 Request Folate (47578)Indication: Fatigue On: 72-Dlh-545786:42 Request CALCIFIDIOL (94771) VIT D 25Indication: Fatigue On: :42 Request VITAMIN B-12 (CYANOCOBALAMIN) (87884)Indication: Fatigue On: :42 Request TSH (81174)Indication: Fatigue On: :42 Request SED RATE ERYTHROCYTE (56463)Indication: Fatigue On: 58-Off-554784:42 Request METABOLIC PANEL, COMPREHENSIVE (42773)Indication: Fatigue On: :42 Request C-REACTIVE PROTEIN (99472)Indication: Fatigue On: :42 Request CBC (AUTO) (76561)Indication: Fatigue On: 29-Rry-367111:42 Request CULTURE,BODY FLUID (56410)Indication: Irregular Menstrual Cycle (Renamed from Irregular bleeding) On: 85-Xdi-213507:07 Request Comments: urine Rapid Strep Test, Office (11056)Indication: Pharyngitis, acute On: 95-Hzq-873549:51 Request Urinalysis, Office (55471)Indication: Fatigue On: 51-Btl-964750:49 Request HgA1C , Office (67956)Indication: Hyperglycemia On: 54-Ezc-294322:41 Request CALCIFIDIOL (99853) VIT D 25Indication: Vitamin D deficiency On: :32 Request TRILEPTAL-OXCARBAZEPINE 424777 (24253)Indication: Convulsions On: :31 Request Metabolic Panel, Comprehensive (47122)Indication: Acute renal failure On: :31 Request CBC with manual diff (98670)Indication: Hypertension On: :31 Request CBC with manual diff (44220)Indication: Thrombocytopenia, unspecified On: :35 Request Comments: in citrate tube FIBRINOGEN (28770)Indication: Thrombocytopenia, unspecified On: :35 Request PTT (Activated Partial Thromboplastin Time) (55015)Indication: Thrombocytopenia, unspecified On: :35 Request PT (Prothrobim Time) (58690)Indication: Thrombocytopenia, unspecified On: :35 Request HEPATITIS C ANTIBODY (13219)Indication: Thrombocytopenia, unspecified On: :35 Request HEPATITIS B CORE ANTBD-IGG/IGM (92016)Indication: Thrombocytopenia, unspecified On: :35 Request HEPATITIS B SURFACE ANTIGEN (03115)Indication: Thrombocytopenia, unspecified On: :35 Request HEPATITIS B SURFACE ANTIBODY (03556)Indication: Thrombocytopenia, unspecified On: :35 Request Methylmalonic acid, serum 29332Wdznmaeqqa: Thrombocytopenia, unspecified On: : Request Vitamin B-12 (cyanocobalamin) (58875)Indication: Thrombocytopenia, unspecified On: :35 Request Sed Rate Erythrocyte (48500)Indication: Thrombocytopenia, unspecified On: :35 Request Metabolic Panel, Comprehensive (45362)Indication: Thrombocytopenia, unspecified On: :35 Request JENNY (ANTINUCLEAR ANTIBODY) (51470)Indication: Thrombocytopenia, unspecified On: :35 Request CBC with manual diff (15836)Indication: Convulsions On: :31 Request Clostridium difficile Toxin A+B, EIA (93051)Indication: Diarrhea On: :31 Request OVA & PARASITE DIR SMEAR (45370)Indication: Diarrhea On: :44 Request OCCULT BLOOD FECES SCREEN (45229)Indication: Diarrhea On: :44 Request LEUKOCYTE COUNT, FECAL (02974)Indication: Diarrhea On: :44 Request ANJELICA CULTURE-STOOL (99250)Indication: Diarrhea On: :44 Request Clostridium difficile Toxin A+B, EIA (18134)Indication: Diarrhea On: 85-Pys-047051:22 Request C DIFF AMPLIFIED PROBE (41407)Indication: Diarrhea On: :51 Request Metabolic Panel, Comprehensive (98423)Indication: Acute renal failure On: :08 Request Comments: recheck prior to August. CALCIFIDIOL (48658) VIT D 25Indication: Vitamin D deficiency On: :08 Request Comments: recheck prior to August. TRILEPTAL-OXCARBAZEPINE 319649 (30273)Indication: Convulsions On: :08 Request Culture, Stool (34099)Indication: Diarrhea On: :01 Request C DIFF AMPLIFIED PROBE (67637)Indication: Diarrhea On: :01 Request C DIFF AMPLIFIED PROBE (54606)Indication: Diarrhea On: 62-Bnu-597975:32 Request C DIFF AMPLIFIED PROBE (76971)Indication: Diarrhea On: 59-Jvd-136951:51 Request URINE ANJELICA CULTURE-IDENTIFICATN (07244)Indication: Backache On: :58 Request URINALYSIS (77100)Indication: Backache On: 1-Fqt-873186:58 Request Metabolic Panel, Comprehensive (59689)Indication: Profound mental retardation (Renamed from IQ under 20) On: 6-Ixh-275082:25 Request Comments: Dr Pino neurologist at [facility] CBC (Auto) (25863)Indication: Profound mental retardation (Renamed from IQ under 20) On: 3-Drz-323913:25 Request TRILEPTAL-OXCARBAZEPINE 746028 (55817)Indication: Cerebral palsy On: 3-Zfz-235342:24 Request COLUMN CHROMATOGRAPHY, SISSY, SINGLE (83096)Indication: Convulsions On: 06-Dwy-259771:54 Request Comments: trileptal 008339 Clostridium difficile Toxin A+B, EIA (90882)Indication: Diarrhea On: 88-Gxq-000826:26 Request CBC (Auto) (29968)Indication: Convulsions On: 59-Xft-085623:25 Request Metabolic Panel, Comprehensive (19003)Indication: Convulsions On: 33-Bek-802790:24 Request ANJELICA CULTURE-OTHER (65933)Indication: Pharyngitis, acute On: 2-Gfu-944114:44 Request C.Difficile, Stool (41685)Indication: Diarrhea On: 46-Pyq-095024:48 Request ANJELICA CULTURE-STOOL (83051)Indication: Diarrhea On: :55 Request C.Difficile, Stool (29120)Indication: Diarrhea On: :54 Request LEUKOCYTE COUNT, FECAL (38776)Indication: Diarrhea On: 27-Dfl-498593:27 Request OVA & PARASITE DIR SMEAR (71704)Indication: Diarrhea On: 83-Zft-076762:27 Request C.Difficile, Stool (97705)Indication: Diarrhea On: 43-Vrv-553583:27 Request ANJELICA CULTURE-STOOL (92186)Indication: Diarrhea On: 66-Yoo-296165:27 Request TSH (13251)Indication: Unspecified bacterial pneumonia On: 1-Zlm-090318:48 Request CBC, Platelets & Auto Diff (72259)Indication: Unspecified bacterial pneumonia On: 1-Fky-451069:48 Request Magnesium (97982)Indication: Unspecified bacterial pneumonia On: 2-Liv-651385:48 Request Phosphorus (81287)Indication: Unspecified bacterial pneumonia On: 5-Unf-147120:48 Request Metabolic Panel, Basic (76296)Indication: Unspecified bacterial pneumonia On: 5-Ywb-032259:48 Request Planned Encounters Medical; 4 Month FU - On: 10-Oct-2018 13:15 [facility] Lara MCCULLOUGHSandra Lara MCCULLOUGHSandra Planned Procedures Flu Vaccine (Quadrivalent) On: 06-Jun-2018 Intent 71713Qg: Lara MCCULLOUGHSanrda Comments: Lot #[id number]-L dltd, IMDose prefilled syringegiven by:MARICARMEN Santana reviewed and ABN signed Sandra Bermudez DO Flu Vaccine (Quadrivalent) On: 02-Aug-2017 Intent 40052Ea: Lara MCCULLOUGHSandra Comments: Lot:[id number]:12/29Amt:0.5mlRoute:IMSite: Rt DltdGiven By: ALFREDITO James signed Sandra Bermudez DO Flu Vaccine (Quadrivalent) On: 14-May-2016 Intent 50173Jv: Roe Baxter MD Comments: Lot #[id number]-L dltd, IMDose prefilled syringegiven by:ALFREDITO Goldberg and ABN signed ADMINISTRATION OF INFLUENZA On: 02-Aug-2015 Intent VIRUS VACCINE (G0008)By: Linda Houston MD Flu Vaccine (Quadrivalent) On: 02-Aug-2015 Intent 55787Gd: Linda Houston MD Comments: Lot #:[id number] date:Amount given:0.5mlRoute: IMSite given:L DltdGiven by: Jessica BASSETT and ABN signed Quad Flu ELECTROCARDIOGRAM, COMPLETE On: 21-Mar-2015 Intent (ECG) (58614)By: Linda Houston MD CT - Brain/Head (IV Contrast On: 29-Nov-2014 Intent Needed)By: Linda Houston MD ADMINISTRATION OF INFLUENZA On: 06-Aug-2014 Intent VIRUS VACCINE (G0008)By: TIMBO Villegas Flu Vaccine (Quadrivalent) On: 06-Aug-2014 Intent 58657Iq: TIMBO Villegas Comments: Lot #:[id number] date:mount given:0.5mlRoute: IM Site given:Given by: to be given per patient home health nurse CATHETERIZE FOR URINE SPEC On: 09-Mar-2014 Intent (P9612)By: Linda Houston MD Comments: pls use pediatric cath- and fax results to [phone] SPECIMEN HNDLNG/TRNSPRT, OFFC > On: 09-Mar-2014 Intent LAB (68744)By: Linda Houston MD IMMUNIZ ADMNIN, 1 VAC, On: 28-Jul-2013 Intent SNGL/COMBO (59656)By: Archie BOLDEN, Comments: Lot #[id number] to nurse for admin Jessica Stack FLU VAC, SPLIT, >3 YEARS, On: 28-Jul-2013 Intent INTRAMUSC (22814)By: Jessica Almanza LPN SPECIMEN HNDLNG/TRNSPRT, OFFC > On: 18-May-2013 Intent LAB (54484)By: Linda Houston MD Eprescribed prescriptions On: 18-May-2013 Intent (G8553)By: Jessica Almanza LPN FLU VAC, SPLIT, >3 YEARS, On: 23-Jun-2011 Intent INTRAMUSC (61157)By: Archie BOLDEN, Comments: Lot #[id number]-L arm, IMDose prefilledgiven by:Jessica Stack IMMUNIZ ADMNIN, 1 VAC, On: 23-Jun-2011 Intent SNGL/COMBO (59993)By: Jessica Almanza LPN Instructions Name Dates Details NEED FOR PROPHYLACTIC VACCINATION AND INOCULATION AGAINST [...] Indication: Cerebral palsy Encounters Phone Encounter On: 13-Jun-2018 10:51 Encounter Diagnosis: [...] for the procedure will be Dr Beck [facility]. The chief complaint is teeth cleanin [...]
--- OUTSIDE RECORDS SUMMARY | 2018-10-08 11:38 | XMS RPT_ITS ---
:1990 Author Organization OHIP Care Team Providers Name Role Phone Lawrence Weiner Attending Unavailable Lara, Sandra Referring Unavailable Lara, Sandra Primary Care Unavailable Lara, Sandra Attending Unavailable Lara, Sandra Primary Care Unavailable Lawrence Weiner Attending Unavailable Lara, Sandra Referring Unavailable Lara, Sandra Primary Care Unavailable Stephan Hughes Attending Unavailable Lawrence Weiner Attending Unavailable Lara, Sandra Referring Unavailable Lara, Sandra Attending Unavailable Lara, Sandra Primary Care Unavailable Lara, Sandra Attending Unavailable Lara, Sandra Primary Care Unavailable PROBLEMS PROBLEMS DATE TYPE CONDITION / CODE ATTENDING STATUS SOURCE 08/22/2018 Unknown E11.9 - Type 2 Lara, Active [place] diabetes mellitus [facility] without Hospital complications / Repository E11.9(ICD-10) 09/02/2017 Unknown J30.2 - Other Lawrence Weiner Active [place] seasonal allergic Community rhinitis / Hospital J30.2(ICD-10) Repository PROCEDURES PROCEDURES No Procedure Records FoundRESULTS RESULTS PULMONARY VISIT REPORT Observed: 05/25/2018 Status: F Source: UNION 1:37 PM [facility] REPOSITORY [facility] [place] [facility] [address] [place] [address] OFFICE VISIT Date of Service: 05/25/18 MR#: [id number] Acct: [id number] Name: MANDY RIVERA Rep #: [id number] : 1990 Provider: Lawrence Weiner MD Age/Sex: 28/F Location: [facility] [place] Status: Signed Assessment AND Plan Problems 1. Chronic respiratory failure with hypoxia J96.11 2. 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 Acute allergic rhinitis due to pollen, unspecified seasonality J30.1 Plan Patient overall appears to be at her baseline. Patient does have some increased nasal secretions, but this may be related to allergies. Patient has no pain or rhonchi on exam at this time. Signs and symptoms of decompensation and sick policy were reviewed and mother reported understanding. Will continue with current aerosol therapies. Patient does use IPPV for pulmonary toileting with good effect. No indication for ABG or vent changes at this time. Did discuss with the mother and cultures can be obtained if patient is thought to be sick. Patient has grown Pseudomonas in the past and does run the risk of developing resistances. No previous resistance to ciprofloxacin or Levaquin is known. Continue current mechanical ventilation and treatment plan. [...] been doing well. Mother has noted increased secretions recently, but states this is typical for her this time of year. Secretions are described as thick and green. Patient does have good response to Mucinex therapy. Patient has not been running any fevers, chills, nausea or vomiting. Patient tolerating tube feeds without difficulty. Patient has remained on the same vent settings and has not had any problems with mucus plugging or hemoptysis. Patient does have some thick secretions noted from the nares. Patient overall appears to be doing well from her palpate standpoint. No decubitus ulcers or other complications are noted. No change in patient's aerosol regimen. Intake Vital Signs05/25/18 Height 4 ft 7 in 05/25/18 Weight: 45.359 kg Intake Visit Reasons: 6 M FU Accompanied by: Family / Other Allergies linezolid Allergy (Severe, Verified 05/25/18 13:00) Other - seizure AND coma vancomycin Allergy (Severe, Verified 05/25/18 13:00) Other - kidney failure tobramycin Allergy (Intermediate, Verified 05/25/18 13:00) Other - turned beet red nafcillin Allergy (Mild, Verified 05/25/18 13:00) Rash benzoin Allergy (Unknown, Verified 05/25/18 13:00) Unknown milk Allergy (Unknown, Verified 05/25/18 13:00) Unknown soy Allergy (Unknown, Verified 05/25/18 13:00) Unknown polyethylene glycol 3350 [From Miralax] Adverse Reaction (Unknown, Verified 05/25/18 13:00) Unknown Medications Baclofen [Lioresal] 30 mg GT TID 09/02/13 [History Confirmed 05/25/18] diazepam 5 mg/mL oral concentrate 5 mg PO BID ml 08/28/17 [History Confirmed 05/25/18] diazepam 5 mg/mL oral concentrate 7 mg PO QHS ml 08/28/17 [History Confirmed 05/25/18] oxcarbazepine 300 mg/5 mL (60 mg/mL) oral suspension 540 mg PO BID ml 08/28/17 [History Confirmed 05/25/18] guaifenesin 200 mg/5 mL oral liquid 200 mg PO Q4H PRN #473 ml 12/09/17 [Rx Confirmed 05/25/18] Phenazopyridine HCl [Pyridium] 200 mg GT TID #10 tab 01/24/18 [Rx Confirmed 05/25/18] Smz/Tpm Suspension [Bactrim Suspension 800-160mg/20ml] 20 ml PO BID #280 ml 01/24/18 [Rx Confirmed 05/25/18] cetirizine 1 mg/mL oral solution 10 mg PO QDAY PRN #480 ml 04/11/18 [Rx Confirmed 05/25/18] fluticasone 44 mcg/actuation HFA aerosol inhaler 2 inh INHALATION .COMPLEX #10.6 g 05/25/18 [Rx Confirmed 05/25/18] levalbuterol 1.25 mg/3 mL solution for nebulization 1.25 mg INHALATION .COMPLEX #144 ml 05/25/18 [Rx Confirmed 05/25/18] [facility] Medical History Pneumonia (Resolved) Cerebral palsy (Chronic) Seizure (Chronic) Severe sepsis (Resolved) C. 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) Paraplegia (Chronic) Spastic hemiplegic cerebral palsy (Chronic) Vitamin D deficiency (Chronic) Streptococcus pneumoniae (Resolved) Surgical History Gastrostomy tube in place (Chronic) Presence of intrathecal baclofen pump (Chronic) Tracheostomy status (Chronic) rods to back (Chronic) H/O spinal fusion (Resolved) Status post Jorje fundoplication (Resolved) derotatox ostomies (Resolved) eyes straightened (Resolved) surgery on gland under tongue (Resolved) tendonatomies (Resolved) Social History Smoking Status: Never smoker second hand exposure: No alcohol intake: never substance use type: does not use Review of Systems Const CONSTITUTIONAL: Negative anorexia, body ache, chills, daytime sleepiness, fever(s), night sweats, oral thrush, stops breathing during sleep, weight loss, sleeping in chair, fatigue, weight loss, weight gain, frequent colds, seasonal allergies, other, headache(s) or orthopnea EETM Ear Nose Throat Mouth: Positive hearing normal and swallowing Difficulty; negative hard of hearing, hoarseness, dry mouth in morning, change in vision, itchy eyes, eye pain, ear pain, nose bleed, mouth pain, nasal congestion, nasal discharge, post nasal drip, sinus pain, sinus pressure, sore throat, other or headache(s) Cardio Cardiovascular: Negative chest pain, chest pain at rest, chest pain with activity, irregular heart rhythm, edema, palpitations, murmur, other or shortness of breath when lying down Resp Respiratory: Positive as per HPI and cough cough: Positive productive color: Positive thick, white and clear; negative [...] Positive cooperative, in no acute respiratory distress, healthy appearing, well nourished, good hygiene and appears [...] nose normal, septum normal and clear nasal discharge; negative epistaxis or nasal polyp Mouth Mouth: Negative post nasal drip Mallampati Score: II: Mallampati Score Gingival hyperplasia noted. No thrush is noted. Macroglossia. Crowded posterior pharynx. Neck Neck: Positive normal visual inspection, full ROM and trachea midline; negative lymphadenopathy or JVD Trach is clean, dry and intact. Chest Wall Chest: Positive normal inspection of the chest and symmetric chest movement; negative crepitus or tenderness Resp lung sounds: Positive clear to auscultation, good air exchange and dullness to percussion; negative wheezes, rhonchi, rales, use of accessory muscles or wheeze present on forced exhalation Mechanical breath sounds noted. Good vent synchrony. Cardio Cardiac: Positive regular rate, regular rhythm, S1 normal and S2 normal; negative murmur, rub or gallop GI GI: Positive normal to inspection and normal bowel sounds; negative distended, ascites or epigastric tenderness Genitourinary: Positive deferred Musc Musculoskeletal: Positive using an assistive device for ambulation; negative kyphosis or scoliosis Patient currently on a stretcher Skin Pulmonary Skin Exam: Positive intact; negative rash, lesion, ulcers, erythema or dermal atrophy Pulses Pulse: Yes radial pulses present Extremities Extremities: Yes capillary refill normal, No clubbing, No cyanosis, No edema Spastic quadriplegia of all extremities. Neuro No significant change compared to previous evaluation. 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 Cerebral palsy type: spastic quadriplegic Acute allergic rhinitis due to pollen, unspecified seasonality J30.1 Allergic rhinitis seasonality: unspecified seasonality Allergic rhinitis trigger: pollen Chronicity: acute 05/25/18 1337 <Electronically signed by Lawrence Weiner MD> Date Lawrence Weiner MD Cosigner Signature: Date (if applicable) CC: Sandra Bermudez DO EMERGENCY DEPARTMENT Observed: 01/24/2018 Status: F Source: [facility] SUMMARY 5:49 PM [facility] Medical Records Department [address] [place] [address] Emergency Department Summary 01/24/18 1645 MR#: [id number] Acct: [id number] Name: MANDY RIVERA Rep #: [id number] : 1990 27 From: Stephan Hughes MD PCP: Sandra Bermudez DO Status: REG ER - ER Visit Summary Date of Service: 01/24/18 Chief Complaint: Per mother dysuria, right flank pain with rash History of Present Illness: The patient is a 27 F who has history of MRDD, cerebral palsy on a portable ventilator was brought to the ER because of pain/discomfort with urination and left flank pain with red rash. Mother states her face being flushed is normal when she is anxious. History is limited since and is nonverbal and vent dependent. Past medical history UTI, pneumonia, cellulitis, cerebral palsy, MRDD, seizure disorder and pseudomembranous enterocolitis. Past surgical history remarkable for Mckeon rods, baclofen pump, TNA, G-tube and tracheostomy Physical Examination: Vital signs are marked for slight elevation [...] area was palpated. There is a warm erythematous rash. There is no induration, fluctuance appreciated. Neuro exam is limited. Test Results: CBC is normal. BMP is unremarkable. There is slight decrease in sodium and chloride of 1 3393 respectively. Glucose is slightly elevated at 116. UA is negative. Emergency Department Course and Treatment: A rectal temp was obtained and is 90.6. Concern she has cellulitis of her back and possible urinary tract infection. Cath urine was ordered and appropriate blood work to determine if patient will require admission versus outpatient treatment. Treatment Plan: Since patient does not have any service criteria. No she has cellulitis will treat with Septra suspension and discharge to home with follow- up with Dr. Bermudez in 2-3 days. Disposition: Discharged to home Impression: 1. Cellulitis left flank region 2. Dysuria of unknown etiology 3. History of MRDD 4. History of Propulsid 5. History of chronic respiratory failure on ventilator This note was generated with [employer] dictation software. It may contain incorrect words, spelling, and punctuation that were not noted in review of the chart prior to signing ED Disposition - Plan for ED Patient: Disposition: Home or Assisted Living Chief Complaint: Complaint Instructions: ED Dysuria Uncertain Cause, ED Infec Skin Cellulitis Prescriptions: Smz/Tpm Suspension [Bactrim Suspension 800-160mg/20ml] 20 ml PO BID #280 ml Phenazopyridine HCl [Pyridium] 200 mg GT TID #10 tab Referrals: Sandra Bermudez DO [Primary Care Provider] - 3-5 Days Additional Instructions: Mandy prescription was electronically transmitted to [place] pharmacy, your preferred pharmacy What to do if you have Problems For any increased pain, shortness of breath, bleeding, nausea or vomiting, chest pain, or any unexpected problems, contact your Primary Care Provider. Call [facility] ([phone]) or report to the closest Emergency Room. Call 911 if necessary. 01/24/18 0074 <Electronically signed by Stephan Hughes MD> Date Stephan Hughes MD Cosigner Signature (If Indicated): Date CC: Sandra Bermudez DO URINALYSIS, COMPLETE Collected: 01/24/2018 Status: F Source: [place] 5:00 PM [facility] Order Comment: How was Urine Obtained? CATHETER SPECIMEN TYPE CODE TESTS RESULT OUT OF RANGE REFERENCE UNITS LAB L400.3000 Yellow COLOR Normal Yellow LAB L400.3050 Clear Normal CLARITY Clear LAB L400.3200 Normal mg/dl High GLUCOSE, UR 250 LAB L400.3300 Negative mg/dL Normal BILIRUBIN URINE Negative LAB L400.3400 Negative mg/dl High 5 KETONE UR LAB L400.3465 1.002-1.030 Normal SP.GR. DIPSTX 1.015 LAB L400.3550 5.0 - 8.0 pH UR Normal 8.0 LAB L400.3600 Negative mg/dl PROT Normal DIPSTX Negative LAB L400.3700 Normal mg/dl Normal UROBILI Normal LAB L400.3750 Negative Normal NITRITE UR Negative LAB L400.3780 Negative /ul Normal OCCULT BLOOD-UR Negative LAB L400.3800 Negative /ul LEUK Normal ESTERASE Negative LAB L400.4050 0-5 /hpf WBC 0 Normal SEEN LAB L400.4100 0-5 /hpf Normal RBC-UA 0-5 SEEN LAB L400.4150 5-10 /hpf SQUAM Normal EPI 0-5 SEEN LAB L400.4300 None Seen /hpf 0 Normal BACTERIA SEEN LAB L400.4350 <or=2+ /hpf 0 Normal MUCUS, URINE SEEN Performed By: #### L400.0001 #### [facility] [address] [place], [address] CBC W/DIFF, AUTOMATED Collected: 01/24/2018 Status: F Source: UNION 4:50 PM [facility] TYPE CODE TESTS RESULT OUT OF RANGE REFERENCE UNITS LAB L100.1000 4.4-11.0 K/mm3 Normal WBC 6.0 LAB L100.1200 4.2-5.4 M/mm3 Normal RBC 4.22 LAB L100.1300 12.0-15.0 g/dl Normal HGB 13.5 LAB L100.1400 37-47 % Normal HCT 39.9 LAB L100.1500 81-99 fL Normal MCV 94.5 LAB L100.1600 27.0-32.0 pg Normal MCH 32.0 LAB L100.1700 32-36 g/gl Normal MCHC 33.8 LAB L100.1810 11.6-14.6 % Normal RDW CV 12.0 LAB L100.1820 35.1-43.9 fl Normal RDW SD 40.7 LAB L100.1900 150-450 K/mm3 Normal PLT 202 LAB L100.2000 6.2-12.0 fl Normal MPV 10.7 LAB L100.2100 47-70 % Normal NEUT% 59.9 LAB L100.2200 19-41 % Normal LY% 25.4 LAB L100.2300 0-10 % High MONO% 12.4 LAB L100.2400 0-5 % Normal EO% 1.7 LAB L100.2500 0-1 % Normal BASO% 0.3 LAB L100.2550 0.0-0.9 % Normal IM GRAN % 0.300 Result Comment: IG% - Immature Granulocytes (promyelocytes, myelocytes and metamyelocytes) > 1% indicates that a LEFT SHIFT is Present. LAB L100.2620 2.0-7.7 X10 3/uL Normal Absolute Neut 3.6 LAB L100.2720 0.83-4.51 X10 3/ul Normal Absolute Lymph 1.52 Performed By: #### L100.0100 #### [facility] [address] [place], [address] BASIC METABOLIC Collected: 01/24/2018 Status: F Source: UNION PROFILE (BMP) 4:50 PM [facility] TYPE CODE TESTS RESULT OUT OF RANGE REFERENCE UNITS LAB L501.0100 74-106 mg/dL High GLU 116 Result Comment: Fasting Glucose result from 100 to 125 mg/dL suggests IMPAIRED HOMEOSTASIS per A.D.A. criteria. Please note revised GLUCOSE reference range effective 2017. LAB L501.1000 7-18 mg/dL Normal BUN 10 LAB L501.1100 0.55-1.02 mg/dL Low CREAT,SERUM 0.48 Result Comment: The validity of the calculated GFR AND GFRAA in patients over 70 years has not been determined. Clinical correlation is essential. LAB L501.1110 >60 mL/min Normal EST GFR 164 Result Comment: Non- GFR Calc LAB L501.1115 >60 mL/min Normal EST GFR - AA 198 Result Comment: GFR Calc LAB L501.1255 ml/min Normal Estimated CRCL 126.06 LAB L501.1300 10-20 RATIO High BUN/CRE 20.8 LAB L501.2200 8.5-10 mg/dL .1 CA Normal 9.2 LAB L501.5300 136-14 mmol/L Low 5 NA 133 LAB L501.5600 3.5-5. mmol/L 1 K Normal 4.3 Result Comment: Moderate Hemolysis, Result may be falsely increased. LAB L501.5900 98-107 mmol/L Low CL 97 LAB L501.6100 21.0-32.0 mmol/L Normal CO2 28.0 LAB L501.6200 5-15 Normal GAP 8 Performed By: #### L500.2500 #### [facility] [address] [place], [address] LACTIC ACID Collected: 01/24/2018 Status: F Source: UNION 12:00 AM [facility] Order Comment: Yes/No query for Sepsis Lactate Rule Y TYPE CODE TESTS RESULT OUT OF RANGE REFERENCE UNITS LAB L503.6005 0.4-2.0 mmol/L Normal LACTIC ACID 2.0 Result Comment: Critical Result(s) Called at: 18:33:30 01/24/2018 by: Yohana Kennedy Performed By: #### L503.6005 #### [facility] [address] [facility] [place], [address] PULMONARY VISIT REPORT Observed: 12/10/2017 Status: F Source: UNION 7:03 AM [facility] [address] [place] [address] OFFICE VISIT Date of Service: 12/09/17 MR#: [id number] Acct: [id number] Name: MANDY RIVERA Rickey Rep #: [id number] : 1990 Provider: Lawrence Weiner MD Age/Sex: 27/F [facility] Status: Signed Assessment AND Plan 1. Chronic respiratory failure with hypoxia J96.11 Plan Patient appears to be doing well on current settings. No indication for ABG or chest imaging at this time. We will continue with aggressive pulmonary toileting. Did discuss with the mother about the use of vest therapy if IPPV becomes ineffective. Patient's mother voiced understanding. Continue current settings 2. 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 No signs or symptoms of complications at this time. Continue with aggressive primary prevention measures. No plans for decannulation or change in trach size. Continue current therapy Plan Detail Other Medications Refilled: HPI 3 M FU: Chief Complaint: Routine follow-up Details: Patient is a 27-year-old female, currently under the care of Dr. Bermudez, who presents for evaluation secondary to chronic respiratory failure and routine follow-up. Since last visit, patient denies any ER visits, hospitalizations or prednisone burst. Patient's nurse and mother report improved response to the addition of guaifenesin. Patient has had much less thick secretions allowing for better pulmonary toileting. Patient's mother did report one episode of decreased saturations on chronic vent settings with increased heart rate. These resolved with suctioning prior to the nurses arrival. Patient did not require any transfer to the emergency room for evaluation. Patient's mother denies any acute illness over the interim requiring antibiotics. Nursing reports no concerns about patient's current ventilator settings. Patient continues to have clear to white sputum. Patient does have oral secretions that are unchanged from baseline. No significant dental issues, trach issues or superficial skin wounds have been reported. Patient is nonverbal and unable to provide any further information. Intake Vital Signs12/09/17 Height 4 ft 7 in 12/09/17 Weight: 45.359 kg 12/09/17 Body Mass Index (BMI) 23.2 Intake Visit Reasons: 3 M FU Accompanied by: Mom Allergies linezolid Allergy (Severe, Verified 12/09/17 13:52) Other - seizure AND coma vancomycin Allergy (Severe, Verified 12/09/17 13:52) Other - kidney failure tobramycin Allergy (Intermediate, Verified 12/09/17 13:52) Other - turned beet red nafcillin Allergy (Mild, Verified 12/09/17 13:52) Rash benzoin Allergy (Unknown, Verified 12/09/17 13:52) Unknown milk Allergy (Unknown, Verified 12/09/17 13:52) Unknown soy Allergy (Unknown, Verified 12/09/17 13:52) Unknown polyethylene glycol 3350 [From Miralax] Adverse Reaction (Unknown, Verified 12/09/17 13:52) Unknown Medications Baclofen [Lioresal] 30 mg GT TID 09/02/13 [History Confirmed 12/09/17] diazepam 5 mg/mL oral concentrate 5 mg PO BID ml 08/28/17 [History Confirmed 12/09/17] diazepam 5 mg/mL oral concentrate 7 mg PO QHS ml 08/28/17 [History Confirmed 12/09/17] levalbuterol 1.25 mg/3 mL [...] Allergic rhinitis due to other allergen (Chronic) Amenorrhea (Chronic) Bronchiectasis without acute exacerbation (Chronic) Chronic respiratory failure (Chronic) Hyperglycemia (Chronic) Irregular menstrual cycle (Chronic) 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) Paraplegia (Chronic) Spastic hemiplegic cerebral palsy (Chronic) Vitamin D deficiency (Chronic) Streptococcus pneumoniae (Resolved) Surgical History Gastrostomy tube in place (Chronic) Presence of intrathecal baclofen pump (Chronic) Tracheostomy status (Chronic) rods to back (Chronic) H/O spinal fusion (Resolved) Status post Jorje fundoplication (Resolved) derotatox ostomies (Resolved) eyes straightened (Resolved) surgery on gland under tongue (Resolved) tendonatomies (Resolved) Social History Smoking Status: Never smoker second hand exposure: No alcohol intake: never substance use type: does not use Review of Systems Const CONSTITUTIONAL: Negative anorexia, body ache, chills, daytime sleepiness, [...] pressure, sore throat or other Cardio Cardiovascular: Negative chest pain, chest pain at rest, chest pain with activity, irregular heart rhythm, edema, shortness of breath when lying down, palpitations, murmur or other Resp Respiratory: Positive as per HPI, wheezing and cough cough: Positive productive color: Positive [...] Const Constitutional: Positive cooperative and good hygiene 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 [...] poor dentition, no lesions and crowded posterior oropharynx; negative post nasal drip or oral thrush present Mallampati Score: IV: Mallampati Score Gingival hyperplasia noted Neck Torticollis to the left. No lymphadenopathy noted. Tracheostomy is clean, dry and intact. No surrounding erythema is noted. No secretions in the vent tubing. Chest Wall Chest: Positive normal inspection of the chest and symmetric chest movement; negative crepitus or tenderness Resp lung sounds: Positive good air exchange and normal expiratory time; negative rhonchi, rales, dullness to percussion, use of accessory muscles or wheezes Cardio Cardiac: Positive regular rate, regular rhythm, S1 normal and S2 normal; negative murmur, rub or gallop GI GI: Positive normal to inspection and normal bowel sounds PEG is clean, dry and intact. 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 [place] [address] OFFICE VISIT Date of Service: 09/02/17 MR#: [id number] Acct: [id number] Name: MANDY RIVERA Rep #: [id number] : 1990 Provider: Lawrence Weiner MD Age/Sex: 27/F Location: [facility] Status: Signed Assessment AND Plan 1. 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 No indication for additional workup at this time. Patient is not having constitutional symptoms that would be concerning for pneumonia. Anticipate lifelong mechanical ventilation. No plans for decannulation secondary to airway obstruction and mental status. Patient continues to be very well cared for with no skin issues despite multiple contractures and limited ability for movement. Continue current therapy. 2. Acute allergic rhinitis due to pollen, unspecified seasonality J30.1; J30.1 Plan Patient is having significant upper airway secretions. This is likely allergic given the persistence of clear to white secretions from the nose and mouth. Did discuss with the family about possible interventions. After review of the risks, benefits and alternatives, patient will be given a trial of Zyrtec syrup to use as needed. Trial of Zyrtec 3. Chronic respiratory failure with hypoxia J96.11; J96.11; J96.11 Plan Patient is on mechanical ventilation at this time, but appears to be tolerating this well. No change in oxygen therapy. Patient does have copious secretions. This is likely secondary to allergic triggers. After discussion with the mother, patient will be given guaifenesin to help with any thick secretions. Patient already has an aggressive pulmonary toileting regimen at baseline. Signs and symptoms of exacerbation were reviewed in detail. Add guaifenesin as needed. Continue current mechanical ventilation. Plan Detail Other Medications New: cetirizine (Children's Zyrtec Allergy) 10 mg (10 mL) PO QDAY PRN allergy [id number] Ok to give through PEG Follow Up 3 Months (BWA) HPI 6 M FU: Chief Complaint: Increased secretions Details: Patient is a 27-year-old female who presents for evaluation secondary to increased secretions. Since last visit, patient's mother denies any ER visits, hospitalizations or prednisone burst. Patient does suffer from cerebral palsy and is unable to answer for herself. Patient presents on a cot with her mother and healthcare physiotherapy assistant. Family reports the patient has had copious upper airway secretions over the last 2-3 weeks. These are white in color and patient has not had any other concomitant complications such as fever, chills, nausea or vomiting. Patient continues to tolerate tube feeds. Patient has had some increased endotracheal secretions, but is responding to IPPV therapy and occasional saline aerosols. Patient's mother has been dealing with a cold for the last 3-4 weeks. Patient's mentation has been at her baseline. Patient continues with mechanical ventilation at baseline settings. Patient using 3 L/min bleed without complication. No dysfunction of the ventilator has been reported. No mucus plugging, cyanotic episodes or other complications have been reported. No testing was reviewed at this visit. Intake Vital Signs09/02/17 Height 4 ft 7 in 09/02/17 Weight: 45.359 kg 09/02/17 Body Mass Index (BMI) 23.2 Intake Visit Reasons: 6 M FU Allergies linezolid Allergy (Severe, Verified 08/28/17 08:44) Other - seizure AND coma vancomycin Allergy (Severe, Verified 08/28/17 08:44) Other - kidney failure tobramycin Allergy (Intermediate, Verified 08/28/17 08:44) Other - turned beet red nafcillin Allergy (Mild, Verified 08/28/17 08:44) Rash benzoin Allergy (Unknown, Verified 08/28/17 08:44) Unknown milk Allergy (Unknown, Verified 08/28/17 08:44) Unknown soy Allergy (Unknown, Verified 08/28/17 08:44) Unknown polyethylene glycol 3350 [From Miralax] Adverse Reaction (Unknown, Verified 08/28/17 08:44) Unknown Medications Baclofen [Lioresal] 30 mg GT TID 09/02/13 [History Confirmed 08/28/17] diazepam 5 mg/mL oral concentrate 5 mg PO BID ml 08/28/17 [History Confirmed 08/28/17] diazepam 5 mg/mL oral concentrate 7 mg PO QHS ml 08/28/17 [History Confirmed 08/28/17] fluticasone 44 mcg/actuation HFA aerosol inhaler 2 inh INHALATION .COMPLEX g 08/28/17 [History Confirmed 08/28/17] levalbuterol 1.25 mg/3 mL solution for nebulization 1.25 mg INHALATION .COMPLEX 08/28/17 [History Confirmed 08/28/17] oxcarbazepine 300 mg/5 mL (60 mg/mL) oral suspension 540 mg PO BID ml 08/28/17 [History Confirmed 08/28/17] cetirizine 1 mg/mL oral solution 10 mg PO QDAY PRN #480 ml 09/02/17 [Rx Confirmed 09/02/17] guaifenesin 200 mg/5 mL oral liquid 200 mg PO Q4H PRN #473 ml 09/02/17 [Rx Confirmed 09/02/17] Review of Systems Const CONSTITUTIONAL: Negative anorexia, body ache, chills, daytime sleepiness, [...] pressure, sore throat or other Cardio Cardiovascular: Negative chest pain, chest pain at rest, chest pain with activity, irregular heart rhythm, edema, shortness of breath when lying down, palpitations, murmur or other Resp Respiratory: Positive as per HPI, wheezing, chest congestion and cough cough: Positive productive color: Positive thick, clear and white; negative pain with cough, chest tightness, pain on inspiration, inhalers, increase use of rescue inhalers, snoring, apnea, other or shortness of [...] Const Constitutional: Positive cooperative and good hygiene 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 Significant oral and nasal secretions. Presents on a cot. Head Head: Positive microcephalic and atraumatic; negative frontal sinus tenderness, maxillary sinus tenderness or cyanosis of lips/distal nose Eyes Eye: Positive clear conjunctiva; negative nystagmus or scleral abnormality Ears Ear: Positive hearing normal and external ears normal; negative hard of hearing Nose Nose: Positive clear nasal discharge and septum normal; negative epistaxis or nasal polyp Mouth Mouth: Positive no lesions and poor dentition; negative post nasal drip or oral thrush present Mallampati Score: IV: Mallampati Score Gingival hyperplasia noted. Neck Torticollis to the left. No lymphadenopathy noted. Tracheostomy is clean, dry and intact. No surrounding erythema is noted. No secretions in the vent tubing. Chest Wall Chest: Positive normal inspection of the chest and symmetric chest movement; negative crepitus or tenderness Resp lung sounds: Positive rhonchi (Scattered), good air exchange and normal expiratory time; negative rales, dullness to percussion or use of accessory muscles Cardio Cardiac: Positive regular rate, regular rhythm, S1 normal and S2 normal; negative murmur, rub or gallop GI GI: Positive normal to inspection and normal bowel sounds PEG is clean, dry and intact. Genitourinary: Positive deferred Musc Musculoskeletal: Positive scoliosis Multiple spastic contractures of the upper more than lower extremities. Skin Pulmonary Skin Exam: Positive intact; negative rash, lesion or ulcers Pulses Pulse: Positive radial pulses present Extremities Extremities: Positive capillary refill normal; negative clubbing, cyanosis or edema Neuro Neurologic: Positive quadraplegic and understands questions Patient able to smile and interact with facial expressions. Appears to be at her baseline. Very little spontaneous movement outside of her face. Lymph Lymphatic: Negative lymphadenopathy, tenderness, cervical adenopathy or axillary adenopathy Psych Appearance: Positive other (At her baseline. Smiling with questions.) Mental Status: Positive other (At her baseline) Mood: Positive congruent mood Affect: Positive other (At her baseline. Smiling with questions.) and normal affect (For her baseline) 09/03/17 0708 <Electronically signed by Lawrence Weiner MD> Date Lawrence Weiner MD Cosigner Signature: Date (if applicable) CC: Sandra Bermudez DO ALLERGIES ALLERGIES DATE TYPE / CODE NAME / CODE REACTION SEVERITY SOURCE 05/25/2018 Drug polyethylene glycol Unknown Unknown [place] Allergy/416 3350/[id number](RXN Community [address] [place] [address]) Repository 05/25/2018 Drug benzoin/[id number]( Unknown Unknown [place] Allergy/416 RXNORM) Community 925914([facility]) Repository 05/25/2018 Drug tobramycin/[id number] Other - [place] Allergy/416 79(RXNORM) turned beet Community 046711([facility] ED CT) Repository 05/25/2018 Drug nafcillin/[id number] Rash [place] Allergy/416 7(RXNORM) Community 291626([facility] CT) Repository 05/25/2018 Drug vancomycin/[id number] Other - kidney [place] Allergy/416 66(RXNORM) failure Community 876146([facility] ED CT) Repository 05/25/2018 Drug linezolid/[id number] Other - [place] Allergy/416 3(RXNORM) seizure coma Community 954505([facility] ED CT) Repository 05/25/2018 Drug milk/[id number](RXN Unknown Unknown [place] Allergy/416 ORM) Community 912032([facility] CT) Repository 05/25/2018 Drug soy/[id number](RXNO Unknown Unknown [place] Allergy/416 RM) [facility] 415159([facility]) Repository ENCOUNTERS ENCOUNTERS ADMIT/DISCHARGE ACCOUNT ADMITTING ENCOUNTER LOCATION SOURCE NUMBER CLASS 08/22/2018 [id number] Ambulatory [place] [facility] 8 [facility] ing:NS Repository 07/25/2018/ [id number] Ambulatory [place] [facility] 8 8 [facility] ing:NS Repository 05/25/2018/ [id number] Ambulatory BMSBuilding:B [place] 8 3 MS.PMW [facility] Repository 01/24/2018/ [id number] Emergency [place] [facility] 8 7 [facility] ing:ED Repository 12/09/2017/ [id number] Ambulatory BMSBuilding:B [facility] 8 5 MS.PMW [facility] Repository 09/20/2017 [id number] Ambulatory [place] [facility] 4 [facility] ing:LAB.FUTUR Repository E 09/02/2017/ [id number] Ambulatory BMSBuilding:B [place] 7 4 MS.W [facility] Repository PAYERS PAYERS ENCOUNTER GUARANTOR PAYER SUBSCRIBER SOURCE 08/22/2018 MANDY [id number] Primary MANDY GONZALEZ: [id number] Hospital [id number]: 330 [id number] Repository [phone] () Date:2018-07-12 08/22/2018 Secondary NOT GIVENUNK [place] Insurance:SELF PAY [facility] Number: Effective Repository Date:2018-08-13 07/25/2018 MANDY [id number] Primary MANDY GONZALEZ: [place] Insurance[id number] [facility] [id number]: 330 [id number] Repository [phone] () Date:2018-07-12 07/25/2018 Secondary NOT GIVENUNK [place] Insurance:SELF PAY [facility] Number: Effective Repository Date:2018-07-12 05/25/2018 MANDY [id number] Primary MANDY GONZALEZ: [place] Insurance:[place] [id number] [place] Number: Hospital [id number]: 330 [id number] Repository [phone] (HP) Date:2017-12-09 05/25/2018 Secondary NOT GIVENUNK [place] Insurance:SELF PAY [facility] Number: Effective Repository Date:2018-05-18 01/24/2018 MANDY [id number] Primary MANDY BRAXTONB: [place] MARIANO Insurance:[place] [id number] [facility] [place] Number: Hospital [id number]: ([phone] [id number] Repository [phone] (HP) Date:2018-01-24 01/24/2018 Secondary NOT GIVENUNK [place] Insurance:SELF PAY [facility] Effective Repository Date:2018-01-24 12/09/2017 MANDY [id number] Primary MANDY BRAXTONB: [place] MARIANO Insurance:[place] [id number] icy Number: Hospital [id number]: (330 [id number] Repository [phone] (HP) Date:2017-09-02 12/09/2017 Secondary NOT GIVENUNK [place] Insurance:SELF [facility]Y [facility] Effective Repository Date:2017-12-07 09/20/2017 MANDY [id number] Primary NOT GIVENUNK [place] MARIANO Insurance[facility] [facility] [place] [facility] Number[facility] Effective Hospital [id number]: (330) Date:2017-09-20 Repository [phone] (HP) 09/20/2017 Secondary NOT GIVENUNK [place] Insurance:SELF PAY [facility] Number[facility] Effective Repository Date:2017-09-20 09/02/2017 MANDY [id number] Primary MANDY GONZALEZ: [place] MARIANO Insurance:[place]ICA[place] [id number] [facility] [place] [facility] Hospital [id number]: 330 [id number] Repository [phone] (HP) Date:2017-08-18 09/02/2017 Secondary NOT GIVENUNK [place] Insurance:SELF PAY [facility] Effective Repository Date:2017-08-18
== END 2018-09-12 23:59 ==
LOC: NS 09:00
PROVIDERS: Family Provider Internal Medicine; PCP Internal Medicine; Visit Provider Internal Medicine
DX: E11.9 Type 2 diabetes mellitus without complications (principal); Z71.3 Dietary counseling and surveillance
CPT/HCPCS: 97803

== ENCOUNTER 2018-09-26 08:47 | Outpatient (RCR) | payer MEDICAID, SELFPAY ==
[2018-05-25 12:59] VITALS: BMI 23.2
--- NOTE | 2018-09-30 07:58 | NS ---
After discussing options with Dr. Bermudez concerning Lesa's delayed gastric emptying/gastroparesis and need to change frequency and volume of enteral feedings for better tolerance as well as timing of insulin provision and adjustment of amount, Dr. Bermudez wrote orders for the following: NeoCate Jr. 220 mL 4 times/day at 8:00, 11:00, 2:00, 5:00 followed by 100 mL water flush at each feeding. Plus 200 mL water flush 4 x/day given at 10:00, 1:00, 4:00 and 7:00 Change fast acting insulin Humalog to 11 units to be given 1 hr post feedings - at 9:00 a.m., 12:00 noon, 3:00 p.m. and 6:00 p.m. in addition to long-acting Lantus at 14 units in a.m. and p.m. Abena Epperson RDN,NEHEMIAS,CDE
--- NOTE | 2018-09-30 08:13 | NS ---
After discussing need to change frequency and volume of enteral feeding related to delayed gastric emptying/gastroparesis as well as change timing and amount of fast acting insulin for improved glycemic control, agreed on the following changes: NeoCate Jr. 220 mL 4 x/day at 0800, 11:00, 2:00, 5:00 with 100 mL flush to follow each feeding. Also, give 200 mL water flushes at 10:00 a.m. , 1:00, 4:00 p.m. and 7:00 p.m. Insulin - continue 14 units Lantus in a.m. and p.m. - change Humalog to 11 units to be give 1 hour after each feeding at 9:00, 12:00, 3:00 and 6:00. Abena Epperson RDN,LD,CDE
== END 2018-10-13 23:59 ==
LOC: NS 08:47
PROVIDERS: Family Provider Internal Medicine; PCP Internal Medicine; Visit Provider Internal Medicine
DX: E11.9 Type 2 diabetes mellitus without complications (principal); Z71.3 Dietary counseling and surveillance
CPT/HCPCS: 97803

== ENCOUNTER 2018-10-17 09:21 | Outpatient (RCR) | payer MEDICAID, SELFPAY ==
[2018-05-25 12:59] VITALS: BMI 23.2
== END 2018-11-10 23:59 ==
LOC: NS 09:21
PROVIDERS: Family Provider Internal Medicine; PCP Internal Medicine; Visit Provider Internal Medicine
DX: E11.9 Type 2 diabetes mellitus without complications (principal); Z71.3 Dietary counseling and surveillance
CPT/HCPCS: 97803

== ENCOUNTER 2018-11-14 08:31 | Outpatient (RCR) | payer MEDICAID, SELFPAY ==
[2018-11-08 09:21] VITALS: BMI 23.2
== END 2018-12-11 23:59 ==
LOC: NS 08:31
PROVIDERS: Family Provider Internal Medicine; PCP Internal Medicine; Visit Provider Internal Medicine
DX: E11.9 Type 2 diabetes mellitus without complications (principal); Z71.3 Dietary counseling and surveillance
CPT/HCPCS: 97803

== ENCOUNTER → 2018-11-17 12:51 | Outpatient (CLI) | payer MEDICAID, SELFPAY | PROVIDERS: Family Provider Internal Medicine; PCP Internal Medicine; Visit Provider Internal Medicine | DX: R33.9 Retention of urine, unspecified (principal) | CPT/HCPCS: 87077; 87086; 87088; 87186 ==

== ENCOUNTER 2018-11-23 20:00 | Emergency (ER) | payer MEDICAID, SELFPAY ==
[2018-11-23 20:01] VITALS: BP 129/84; PULSE 93; RESP 19; TEMP 36.3; O2SAT 94; BMI 29.2
[2018-11-23 21:40] VITALS: BP 112/67; PULSE 78; RESP 18; O2SAT 95
[2018-11-23 21:44] LABS: Absolute Lymphocyte Count 1.21 X10^3/ul (0.83-4.51); Basophil# 0.02 X10^3/uL; Basophil% 0.4 % (0-1); Eosinophil# 0.08 X10^3/uL; Eosinophils% 1.6 % (0-5); Hematocrit 40.5 % (37-47); Hemoglobin 13.2 g/dl (12.0-15.0); Lymphocyte # 1.21 X10^3/ul (4.0); Lymphocyte % 24.5 % (19-41); Mean Corp Hgb Conc 32.6 g/gl (32-36); Mean Corpuscular Hgb 31.6 pg (27.0-32.0); Mean Corpuscular Volume 96.9 fL (81-99); Monocyte# 0.58 X10^3/uL; Monocyte% 11.7 % (0-10); Neutrophil # 3.03 X10^3/uL (2.7-7.7); Neutrophil % 61.4 % (47-70); Platelet Count 189 K/mm3 (150-450); RBC Distribution Width CV 12.1 % (11.6-14.6); Red Blood Count 4.18 M/mm3 (4.2-5.4); White Blood Count 4.9 K/mm3 (4.4-11.0)
[2018-11-23 21:45] LABS: POSITIVE COUNT NO; POSITIVE DIFFERENTIAL NO; POSITIVE MORPHOLOGY NO
[2018-11-23 22:00] VITALS: BP 119/78; PULSE 87; RESP 20; O2SAT 96
[2018-11-23 22:04] LABS: Mucous, Urine 0 SEEN /hpf (<or=2+)
[2018-11-23 22:14] LABS: AST(SGOT) 52 U/L (15-37); Alanine Aminotransfer ALT/SGPT 54 U/L (13-56); Albumin, Serum 3.8 g/dL (3.2-5.0); Alkaline Phosphatase 76 U/L (45-117); Anion Gap 8 (5-15); BUN 9 mg/dL (7-18); BUN/Creat Ratio 21.3 RATIO (10-20); Calcium,Total 8.9 mg/dL (8.5-10.1); Chloride 104 mmol/L (98-107); Creatinine, Serum 0.42 mg/dL (0.55-1.02); EST Glomerular Filtration Rate 189 mL/min (>60); Est Glom Filt Rate - Afr Amer 228 mL/min (>60); Estimated Creatinine Clearance 179.44 ml/min; Globulin 3.7 g/dL (2.2-4.2); Glucose 144 mg/dL (74-106); Potassium 4.7 mmol/L (3.5-5.1); Protein, Total 7.5 g/dL (6.4-8.2); Sodium Level 140 mmol/L (136-145)
[2018-11-23 22:17] LABS: Color, Urine Yellow (Yellow); Glucose, Dipstick 50 mg/dl (Normal); Ketone-Dipstick Negative (Negative); Leukocyte Esterase-Dipstick 500 /ul (Negative); Nitrite-Dipstick Negative (Negative); Occult Blood-Urine 10 /ul (Negative); Protein-Dipstick Negative (Negative); Urine Bilirubin Dipstick Negative (Negative); Urine Clarity Sl. Cloudy (Clear); Urine Urobilinogen Normal (Normal)
[2018-11-23 22:25] LABS: Bacteria RARE /hpf (None Seen); Red Blood Cells-Urine 0-5 SEEN /hpf (0-5); Squamous Epithelial Cells - UA 0-5 SEEN /hpf (5-10); White Blood Cells 25-50 SEEN /hpf (0-5)
[2018-11-24] VITALS: BP 108/69; PULSE 82; RESP 20; O2SAT 98
--- NOTE | 2018-11-24 00:05 | ED.DCSUM_ITS ---
- ER Visit Summary Date of Service: 11/24/18 Chief Complaint: Abnormal urine culture History of Present Illness: The patient is a 28 F who is a vent dependent cerebral palsy patient. Apparently she was reporting dysuria to her mother last week. The nurse came to the house and got a catheterized urine specimen. I do not have the urinalysis results. I do have access to urine culture which demonstrated 50-80,000 colony-forming units of strep anginosus. These results are received by family today and they were advised by nursing to come to the emergency department for IV antibiotics. Patient has not had a fever she notes intermittent dysuria. The patient has a history of C. difficile diarrhea. Physical Examination: Afebrile vital signs are stable Gen: Well-nourished well-developed Head: Normocephalic atraumatic Eyes: Perrl EOMI ENT: TMs clear no rhinorrhea moist mucous membranes Neck: Supple no lymphadenopathy no JVD nontender trach site clean dry and intact CVS: Regular rate rhythm no murmurs normal S1-S2 Respiratory: No distress clear to auscultation bilaterally chest nontender Abdomen: Soft nontender nondistended normal bowel sounds no masses Back: Nontender Extremity: Nontender no edema Skin: Normal color no rash Neuro: alert spastic changes consistent with cerebral palsy Test Results: White count is normal at 4.9. Urinalysis negative nitrates 25-50 white cells and rare bacteria. Emergency Department Course and Treatment: Urine will be sent for culture. At this point patient is not symptomatic (febrile elevated white count). Her urinalysis is negative for nitrates and is rare bacteria. Family is hesitant involving IV antibiotics given her history of C. difficile and severe reactions. We will wait for culture. We talked about following up with infectious disease which they are open to. They also follow-up with primary care. Impression: 1. Dysuria This note was generated with [employer] original products dictation software. It may contain incorrect words, spelling, and punctuation that were not noted in review of the chart prior to signing ED Disposition - Plan for ED Patient: Disposition: Home or Assisted Living Instructions: Dysuria Referrals: Sandra Bermudez DO [Primary Care Provider] - (call to arrange follow up) Rafa Bettencourt MD [STAFF PHYSICIAN] - (call to arrange follow up for infectious disease)
[2018-11-24 00:10] VITALS: BP 108/69; PULSE 82; RESP 20; O2SAT 98
== END 2018-11-24 00:35 | disposition home or self-care (01) ==
PROVIDERS: Emergency Provider Emergency Medicine; Family Provider Internal Medicine; PCP Internal Medicine
DX: R30.0 Dysuria (principal); G80.9 Cerebral palsy, unspecified; Z99.11 Dependence on respirator [ventilator] status; Z86.19 Personal history of other infectious and parasitic diseases
CPT/HCPCS: 80053; 81001; 85025; 87077; 87086; 87088; 99285; P9612; A4216

== ENCOUNTER 2019-01-10 14:26 | Emergency (ER) | payer MEDICAID, SELFPAY ==
[2019-01-10] VITALS (8 sets, daily range): BP systolic 132–158; BP diastolic 86–101; PULSE 87–125; RESP 12–24; TEMP 36.6–36.8; O2SAT 92–100; BMI 35.1
--- NOTE | 2019-01-10 14:43 | EKG12_ITS ---
Test Reason : Blood Pressure : / mmHG Vent. Rate : 115 BPM Atrial Rate : 115 BPM P-R Int : 174 ms QRS Dur : 078 ms QT Int : 306 ms P-R-T Axes : 036 005 059 degrees QTc Int : 423 ms Sinus tachycardia Possible Left atrial enlargement Borderline ECG Confirmed by DIEGO DEVI ([id number]), editorial manager MIS CUELLAR ([id number]) on 01/16/2019 2:14:03 PM Referred By: FLAVIA Confirmed By:PRIETO DEVI
--- NOTE | 2019-01-10 14:43 | RAD_ITS ---
STUDY: X-RAY CHEST REASON FOR EXAM: Female, 28 years old. Increased congestion TECHNIQUE: AP portable COMPARISON: March 06, 2017 FINDINGS: Less than optimal inspiratory effort is seen with minor bibasilar atelectasis.. There is no demonstrated pleural abnormality. Normal size heart. Normal mediastinum and glenn. Normal visualized pulmonary arteries. Normal visualized aortic arch and descending thoracic aorta. Dorsal spine demonstrates severe dextroscoliosis. There are postsurgical changes status post scoliosis correction surgery.. Normal visualized ribs, clavicles, and shoulders. There is no demonstrated abnormality of the visualized soft tissue structures of the upper abdomen. No significant changes since prior exam RAD/Chest 1 View (Portable) IMPRESSION: Diminished inspiratory effort. No acute cardiac pulmonary pathology Electronically Signed: Abdirahman Awad MD at 16:42 EDT , Service support ,
[2019-01-10 15:09] LABS: Absolute Neutrophil Count 4.8 X10^3/uL (2.0-7.7); Basophil# 0.01 X10^3/uL; Basophil% 0.2 % (0-1); Eosinophil# 0.13 X10^3/uL; Hematocrit 37.9 % (37-47); Hemoglobin 12.6 g/dl (12.0-15.0); Lymphocyte % 15.3 % (19-41); Mean Corp Hgb Conc 33.2 g/gl (32-36); Mean Corpuscular Hgb 31.6 pg (27.0-32.0); Mean Platelet Vol. 10.9 fl (6.2-12.0); Monocyte# 0.58 X10^3/uL; Monocyte% 8.9 % (0-10); Neutrophil # 4.78 X10^3/uL (2.7-7.7); Neutrophil % 73.3 % (47-70); Platelet Count 196 K/mm3 (150-450); RBC Distribution Width SD 41.4 fl (35.1-43.9); Red Blood Count 3.99 M/mm3 (4.2-5.4); White Blood Count 6.5 K/mm3 (4.4-11.0)
[2019-01-10 15:11] LABS: POSITIVE COUNT NO; POSITIVE DIFFERENTIAL NO; POSITIVE MORPHOLOGY NO
--- NOTE | 2019-01-10 15:20 | NURSING ---
CHEMISTRIES HEMOLIZED, CALLED LAB, PER RN, TO COME REDRAW
--- NOTE | 2019-01-10 15:36 | ED.DCSUM_ITS ---
History of Present Illness Chief Complaint: Shortness of Breath Informant: Family Onset: Days - 3 Narrative: Patient with history of cerebral palsy, bedridden, trach and PEG, vent dependent here with mother for evaluation of increasing secretions from the vent tube. Th ere is been no fevers. No vomiting or diarrhea. But no cyanosis or any respiratory distress. Mother states there is some wheezing and coarse sounds in her lungs she is given aerosol treatments at home. Reports her last admission was over a year ago for observations. Prior similar symptoms: Yes Past Medical History - Allergies and Home Meds Allergies/Adverse Reactions: Allergies linezolid Allergy (Severe, Verified 01/10/19 14:32) Other - seizure & coma vancomycin Allergy (Severe, Verified 01/10/19 14:32) Other - kidney failure tobramycin Allergy (Intermediate, Verified 01/10/19 14:32) Other - turned beet red nafcillin Allergy (Mild, Verified 01/10/19 14:32) Rash benzoin Allergy (Unknown, Verified 01/10/19 14:32) Unknown milk Allergy (Unknown, Verified 01/10/19 14:32) Unknown soy Allergy (Unknown, Verified 01/10/19 14:32) Unknown polyethylene glycol 3350 [From Miralax] Adverse Reaction (Unknown, Verified 01/10/19 14:32) Unknown Primary Care Physician: Sandra Bermudez DO [Primary Care Provider] - Surgical History: - - 2001 angelo in back, kenneth and trach in 2002 lumbar fusion, baclofen pump placed and removed Smoking Status: Never smoker - Family History Maternal Family History: Reports: No pertinent history Paternal Family History: Reports: No pertinent history Review of Systems ROS: Unable to Obtain - CP hx on vent Physical Exam Vital Signs/Narrative: Vital Signs Temp Pulse Resp BP Pulse Ox 01/10/19 14:40 98.2 F 109 H 21 H 158/101 H 100 01/10/19 14:27 98.2 F 125 H 24 H 153/92 H 92 Inital Vital Signs reviewed: Yes General: No Acute Distress Head: Normocephalic, Atraumatic ENT: Moist mucous membranes Neck: - - Tracheostomy on vent on secretions Cardiovascular: Regular rate, No murmurs, Tachycardia Respiratory: - - coarse breaths, no wheeze or ronchi, no retractions Abdomen: Soft, Nontender, Nondistended, Normal bowel sounds Extremities: No edema, Tenderness Skin: Normal color Diagnostic/Tx/Re-eval Chest X-Ray - ED: 1 View, Read by ED Physician, No Acute Disease Abnormal Lab Results 01/10/19 01/10/19 01/10/19 15:00 15:00 15:32 WBC 6.5 RBC 3.99 L Hgb 12.6 Hct 37.9 MCV 95.0 MCH 31.6 MCHC 33.2 RDW 12.0 RDW Differential 41.4 Plt Count 196 MPV 10.9 Immature Gran % (Auto) 0.300 Neut % (Auto) 73.3 H Lymph % (Auto) 15.3 L [place] % (Auto) 8.9 Eos % (Auto) 2.0 Baso % (Auto) 0.2 Absolute Neuts (auto) 4.8 Absolute Lymphs (auto) 1.00 Total Counted Not Reportable Sodium Cancelled 139 Potassium Cancelled 3.8 Chloride Cancelled 101 Carbon Dioxide Cancelled 30.0 Anion Gap Cancelled 8 BUN Cancelled 10 Creatinine Cancelled 0.60 Estim Creat Clear Calc Cancelled 115.03 Est GFR (MDRD) Af Amer Cancelled 154 Est GFR (MDRD) Non-Af Cancelled 127 BUN/Creatinine Ratio Cancelled 16.7 Glucose Cancelled 285 H Calcium Cancelled 8.9 - EKG Initial EKG Interpretation: Sinus Rhythm - NSR 115, No ST or twave changes - Medical Decision Making Patient afebrile in acute no acute respiratory distress. EKG was sinus tachycardia. Diminished breath sounds given aerosol treatments. Had respiratory obtain a tracheal aspirate for further evaluation due to increased secretions. I did send for respiratory panel for further evaluation. Given 500 cc bolus of fluids heart rate improved into the 90s. Patient remained stable t hroughout. Labs are stable, chest x-ray reviewed by myself shows no acute process with any infiltrates. Discussed with mother takes care of her at home, with no infiltrate, discuss reasonable to wait for trach aspirate and respiratory panel prior to any treatment. She agrees with this plan. She has aerosol treatments at home. Discussed with her illness she may need increase fluids through her PEG tube for which she understands. Signs and symptoms discussed return otherwise follow-up with her physicians. All questions were answered. ED Disposition - Plan for ED Patient: Disposition: Home or Assisted Living Diagnosis: Upper respiratory infection Instructions: ED Upper Resp Infec No Abx Tx Referrals: Sandra Bermudez DO [Primary Care Provider] - 3-5 Days Additional Instructions: Tracheal aspirate along with respiratory panel sent and is pending. Labs are stable chest x-ray negative. Fluid through the PEG tube, continue with aerosol treatments as needed. Return if any worsening symptoms.
[2019-01-10] MEDS: Ipratropium/Albuterol Sulfate 3 ML AMPUL.NEB INHALATION (15:43)
[2019-01-10 15:53] LABS: Anion Gap 8 (5-15); BUN 10 mg/dL (7-18); BUN/Creat Ratio 16.7 RATIO (10-20); Calcium,Total 8.9 mg/dL (8.5-10.1); Chloride 101 mmol/L (98-107); EST Glomerular Filtration Rate 127 mL/min (>60); Est Glom Filt Rate - Afr Amer 154 mL/min (>60); Estimated Creatinine Clearance 115.03 ml/min; Glucose 285 mg/dL (74-106); Potassium 3.8 mmol/L (3.5-5.1); Sodium Level 139 mmol/L (136-145)
== END 2019-01-10 17:09 | disposition home or self-care (01) ==
PROVIDERS: Emergency Provider Emergency Medicine; Family Provider Internal Medicine; PCP Internal Medicine
DX: J06.9 Acute upper respiratory infection, unspecified (principal); G80.9 Cerebral palsy, unspecified; Z74.01 Bed confinement status; Z99.11 Dependence on respirator [ventilator] status; Z93.1 Gastrostomy status
CPT/HCPCS: 36415; 71045; 80048; 85025; 87070; 87077; 87186; 87205; 87633; 93005; 94640; 96360; 99285; J7040; A4216

== ENCOUNTER 2019-01-27 08:10 | Outpatient (RCR) | payer MEDICAID, SELFPAY ==
[2019-01-10 14:27] VITALS: BMI 35.1
== END 2019-02-10 23:59 ==
LOC: NS 08:10
PROVIDERS: Family Provider Internal Medicine; PCP Internal Medicine; Visit Provider Internal Medicine
DX: E11.9 Type 2 diabetes mellitus without complications (principal); Z71.3 Dietary counseling and surveillance
CPT/HCPCS: 97803

== ENCOUNTER → 2019-03-10 | Outpatient (CLI) | payer MEDICAID, SELFPAY ==
[2019-01-10 14:27] VITALS: BMI 35.1
[2019-03-10 18:35] LABS: Color, Urine Yellow (Yellow); Glucose, Dipstick 1000 mg/dl (Normal); Ketone-Dipstick 5 mg/dl (Negative); Leukocyte Esterase-Dipstick Negative /ul (Negative); Nitrite-Dipstick Negative (Negative); Occult Blood-Urine Negative /ul (Negative); Protein-Dipstick Negative (Negative); Urine Bilirubin Dipstick Negative (Negative); Urine Clarity Clear (Clear); Urine Urobilinogen 1 mg/dl (Normal)
== END | disposition home or self-care (01) ==
PROVIDERS: Family Provider Internal Medicine; PCP Internal Medicine; Referring Provider Internal Medicine; Visit Provider Internal Medicine
DX: R30.0 Dysuria (principal)
CPT/HCPCS: 81002; 87086

== ENCOUNTER → 2019-05-30 17:25 | Outpatient (CLI) | payer MEDICAID, SELFPAY ==
[2019-04-25 09:39] VITALS: BMI 35.1
[2019-05-30 17:32] LABS: Color, Urine Yellow (Yellow); Glucose, Dipstick 100 mg/dl (Normal); Ketone-Dipstick Negative (Negative); Leukocyte Esterase-Dipstick 100 /ul (Negative); Nitrite-Dipstick Negative (Negative); Occult Blood-Urine 10 /ul (Negative); Protein-Dipstick 30 mg/dl (Negative); Urine Bilirubin Dipstick Negative (Negative); Urine Clarity Cloudy (Clear); Urine Urobilinogen 4 mg/dl (Normal)
[2019-05-30 18:07] LABS: Microalbumin:Creatinine Ratio 143.4 mg/g CRE (<30 mg/g CRE)
== END ==
PROVIDERS: Family Provider Internal Medicine; PCP Internal Medicine; Referring Provider Internal Medicine; Visit Provider Internal Medicine
DX: E55.9 Vitamin D deficiency, unspecified (principal); R56.9 Unspecified convulsions; E11.9 Type 2 diabetes mellitus without complications
CPT/HCPCS: 81002; 82043; 82570

== ENCOUNTER → 2019-06-23 | Outpatient (CLI) | payer MEDICAID, SELFPAY ==
[2019-04-25 09:39] VITALS: BMI 35.1
[2019-06-23 15:33] LABS: Anion Gap 8 (5-15); BUN 13 mg/dL (7-18); BUN/Creat Ratio 23.5 RATIO (10-20); Calcium,Total 9.8 mg/dL (8.5-10.1); Chloride 93 mmol/L (98-107); Creatinine, Serum 0.55 mg/dL (0.55-1.02); EST Glomerular Filtration Rate 138 mL/min (>60); Est Glom Filt Rate - Afr Amer 166 mL/min (>60); Glucose 161 mg/dL (74-106); Potassium 3.9 mmol/L (3.5-5.1); Sodium Level 132 mmol/L (136-145)
== END | disposition home or self-care (01) ==
PROVIDERS: Family Provider Internal Medicine; PCP Internal Medicine; Referring Provider Internal Medicine; Visit Provider Internal Medicine
DX: Z51.81 Encounter for therapeutic drug level monitoring (principal)
CPT/HCPCS: 80048

== ENCOUNTER → 2019-09-01 15:00 | Outpatient (CLI) | payer MEDICAID, SELFPAY ==
[2019-08-04 11:01] VITALS: BMI 35.1
[2019-09-01 17:33] LABS: Red Blood Cells-Urine 0 SEEN /hpf (0-5); Squamous Epithelial Cells - UA 0 SEEN /hpf (5-10)
[2019-09-01 17:41] LABS: Color, Urine Yellow (Yellow); Glucose, Dipstick Normal (Normal); Ketone-Dipstick Negative (Negative); Leukocyte Esterase-Dipstick 500 /ul (Negative); Nitrite-Dipstick Negative (Negative); Occult Blood-Urine 50 /ul (Negative); Protein-Dipstick 15 mg/dl (Negative); Specific Gravity, Urine 1.015 (1.002-1.030); Urine Bilirubin Dipstick Negative (Negative); Urine Clarity Cloudy (Clear); Urine Urobilinogen 1 mg/dl (Normal)
[2019-09-01 17:49] LABS: Bacteria 1+ /hpf (None Seen); Mucous, Urine 0 SEEN /hpf (<or=2+); White Blood Cells 50-100 SEEN /hpf (0-5)
== END ==
PROVIDERS: Family Provider Internal Medicine; PCP Internal Medicine; Visit Provider Internal Medicine
DX: R30.0 Dysuria (principal)
CPT/HCPCS: 81001

== ENCOUNTER 2019-11-24 17:26 | Emergency (ER) | payer MEDICAID, SELFPAY ==
[2019-08-04 11:01] VITALS: BMI 35.1
[2019-11-24 17:26] VITALS: TEMP 36.4; O2SAT 100; BMI 34.7
[2019-11-24 17:29] VITALS: BP 138/98; PULSE 74; RESP 16; TEMP 36.4; O2SAT 100
--- NOTE | 2019-11-24 17:40 | RAD_ITS ---
STUDY: X-RAY CHEST REASON FOR EXAM: Female, 29 years old. PRODUCTIVE COUGH x1 WEEK, PT ON VENT WITH TRACH, PT HAS CEREBRAL PALSY TECHNIQUE: Frontal view COMPARISON: January 10, 2019 FINDINGS: Tracheostomy tube is in place. The lungs are clear and expanded. There is no demonstrated pleural abnormality. Normal size heart. Normal mediastinum and glenn. Normal visualized pulmonary arteries. Normal visualized aortic arch and descending thoracic aorta. Significant scoliosis of the thoracic spine with vertebral angelo similar to previous study. Normal visualized ribs, clavicles, and shoulders. There is no demonstrated abnormality of the visualized soft tissue structures of the upper abdomen. RAD/Chest 1 View (Portable) IMPRESSION: No acute pulmonary pathology of the chest. Electronically Signed: Carter Hollingsworth DO at 18:11 EDT Tel [phone], Service support ,
--- NOTE | 2019-11-24 17:40 | ED.VIS.GEN ---
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 She is nonverbal. Mother states she blinks her eyes for yes and turns her look down for no. Mother was the informant. Since she has had symptoms for 1 week she contacted her mass communications professor Dr. Lawrence Weiner. Dr. Weiner recommended she come to the emergency room. History is limited to what has been documented Prior similar symptoms: Yes Recent Illness/Hospitalization: No - Past Medical History (1) Allergic rhinitis Status: Chronic (2) Cerebral palsy Status: Chronic (3) Chronic respiratory failure Status: Chronic Comment: Current LTV A/C 14, 240 mL PS 8 with 3 LPM, transition to Trilogy TV 240 with starting low pressures of 5 (4) Seizure Status: Chronic (5) Pneumonia Status: Suspected Past Medical History - Allergies and Home Meds Allergies/Adverse Reactions: Allergies linezolid Allergy (Severe, Verified 08/04/19 11:00) Other - seizure & coma vancomycin Allergy (Severe, Verified 08/04/19 11:00) Other - kidney failure tobramycin Allergy (Intermediate, Verified 08/04/19 11:00) Other - turned beet red nafcillin Allergy (Mild, Verified 08/04/19 11:00) Rash benzoin Allergy (Unknown, Verified 11/24/19 17:32) Rash milk Allergy (Unknown, Verified 11/24/19 17:32) Other PER ALLERGY TESTING soy Allergy (Unknown, Verified 11/24/19 17:32) Other POSTIVE DURING ALLERGY TESTING. polyethylene glycol 3350 [From Miralax] Adverse Reaction (Unknown, Verified 11/24/19 17:32) Hives Primary Care Physician: Sandra Bermudez DO [Primary Care Provider] - Prior records reviewed: Yes Surgical History: - Lives: With Family Smoking Status: Never smoker Alcohol: None Drugs: None - Family History Maternal Family History: Reports: No pertinent history Paternal Family History: Reports: No pertinent history Review of Systems ROS: Unable to Obtain Respiratory: Reports: Dyspnea, Cough, Sputum, - - And wheezing Physical Exam Vital Signs/Narrative: Vital Signs Temp Pulse Resp BP Pulse Ox 11/24/19 17:29 97.5 F L 74 16 138/98 H 100 11/24/19 17:26 97.5 F L 100 Inital Vital Signs reviewed: Yes General: Well nourished, Well developed, No Acute Distress Head: Normocephalic, Atraumatic Eyes: Perrl, EOMI, - - She has horizontal nystagmus with a fast component to the left.. Negative for: Pale conjunctiva, Scleral icterus ENT: Moist mucous membranes, No rhinorrhea Neck: Nontender, No lymphadenopathy, No JVD. Negative for: Supple Cardiovascular: Regular rate, Regular rhythm, No murmurs, Normal S1, Normal S2 Respiratory: No distress, CTA bilaterally, Chest nontender Abdomen: Soft, Nontender, Nondistended, Normal bowel sounds Rectal: Deferred Extremities: Nontender Skin: Normal color, No rash Neurological: Alert Psychological: Normal affect Diagnostic/Tx/Re-eval Chest X-Ray - ED: 1 View, Read by ED Physician, Normal, Heart, Lungs, No Acute Disease, Chronic Changes Impressions Chest X-Ray 11/24/19 17:40 IMPRESSION: No acute pulmonary pathology of the chest. Electronically Signed: Carter Hollingsworth DO at 18:11 EDT Tel [phone], Service support , 11/24/19 17:40 Chest 1 View (Portable) [RAD] Stat Laboratory Results 11/24/19 11/24/19 18:10 18:10 WBC 8.1 RBC 4.07 L Hgb 12.9 Hct 38.7 MCV 95.1 MCH 31.7 MCHC 33.3 RDW Std Deviation 39.8 RDW Coeff of Anne 11.7 Plt Count 225 MPV 10.7 Immature Gran % (Auto) 1.600 H Neut % (Auto) 62.1 Lymph % (Auto) 24.7 Crittenden % (Auto) 9.5 Eos % (Auto) 1.9 Baso % (Auto) 0.2 Absolute Neuts (auto) 5.0 Absolute Lymphs (auto) 1.99 Nucleated RBC % 0 Sodium 136 Potassium 4.0 Chloride 100 Carbon Dioxide 30.0 Anion Gap 6 BUN 7 Creatinine 0.52 L Estim Creat Clear Calc 130.31 Est GFR (MDRD) Af Amer 180 Est GFR (MDRD) Non-Af 149 BUN/Creatinine Ratio 13.6 Glucose 163 H Calcium 9.2 Patient's laboratory and x-ray are unremarkable. Mother was informed. Since she is afebrile, not tachycardic or tachypneic or hypoxic and white count is normal with only yellow-tinged sputum will not treat with antibiotics. - Medical Decision Making Chest x-ray was obtained to assess for pneumonia. Blood work was obtained to assess white count, H&H as well as renal function. ED Disposition - Plan for ED Patient: Disposition: Home or Assisted Living Diagnosis: Acute tracheitis Instructions: URI, Viral w/ Wheezing (Adult) Referrals: Sandra Bermudez DO [Primary Care Provider] - 1 Week if not improving
[2019-11-24 18:22] LABS: Absolute Lymphocyte Count 1.99 X10^3/uL (0.83-4.51); Basophil# 0.02 X10^3/uL; Basophil% 0.2 % (0-1); Eosinophil# 0.15 X10^3/uL; Eosinophils% 1.9 % (0-5); Hematocrit 38.7 % (37-47); Hemoglobin 12.9 g/dL (12.0-15.0); Lymphocyte # 1.99 X10^3/ul (4.0); Lymphocyte % 24.7 % (19-41); Mean Corp Hgb Conc 33.3 g/dL (32-36); Mean Corpuscular Hgb 31.7 pg (27.0-32.0); Mean Corpuscular Volume 95.1 fL (81-99); Mean Platelet Vol. 10.7 fl (6.2-12.0); Monocyte# 0.77 X10^3/uL; Monocyte% 9.5 % (0-10); NRBC Flagged by Analyzer 0 % (0-5); Neutrophil # 5.01 X10^3/uL (2.7-7.7); Neutrophil % 62.1 % (47-70); Platelet Count 225 K/mm3 (150-450); RBC Distribution Width CV 11.7 % (11.6-14.6); RBC Distribution Width SD 39.8 fl (35.1-43.9); Red Blood Count 4.07 M/mm3 (4.2-5.4); White Blood Count 8.1 K/mm3 (4.4-11.0)
[2019-11-24 18:33] LABS: Anion Gap 6 (5-15); BUN 7 mg/dL (7-18); BUN/Creat Ratio 13.6 RATIO (10-20); Calcium,Total 9.2 mg/dL (8.5-10.1); Chloride 100 mmol/L (98-107); Creatinine, Serum 0.52 mg/dL (0.55-1.02); EST Glomerular Filtration Rate 149 mL/min (>60); Est Glom Filt Rate - Afr Amer 180 mL/min (>60); Estimated Creatinine Clearance 130.31 ml/min; Glucose 163 mg/dL (74-106); Sodium Level 136 mmol/L (136-145)
[2019-11-24 18:38] VITALS: BP 120/64; PULSE 73; RESP 19; TEMP 36.6; O2SAT 98
[2019-11-24 19:13] VITALS: BP 120/64; PULSE 73; RESP 19; TEMP 36.6; O2SAT 98
== END 2019-11-24 21:21 | disposition home or self-care (01) ==
PROVIDERS: Emergency Provider Emergency Medicine; PCP Internal Medicine
DX: J04.10 Acute tracheitis without obstruction (principal); Z99.11 Dependence on respirator [ventilator] status; G80.9 Cerebral palsy, unspecified; J96.10 Chronic respiratory failure, unspecified whether with hypoxia or hypercapnia; R56.9 Unspecified convulsions; Z79.899 Other long term (current) drug therapy
CPT/HCPCS: 71045; 80048; 85025; 99285; A4216

== ENCOUNTER → 2019-11-30 | Outpatient (CLI) | payer MEDICAID, SELFPAY ==
[2019-11-24 17:26] VITALS: BMI 34.7
[2019-11-30 15:21] LABS: Color, Urine Yellow (Yellow); Glucose, Dipstick 250 mg/dl (Normal); Ketone-Dipstick 5 mg/dl (Negative); Leukocyte Esterase-Dipstick 500 /ul (Negative); Nitrite-Dipstick Negative (Negative); Occult Blood-Urine 150 /ul (Negative); Protein-Dipstick 30 mg/dl (Negative); Specific Gravity, Urine 1.015 (1.002-1.030); Urine Bilirubin Dipstick Negative (Negative); Urine Clarity Cloudy (Clear); Urine Urobilinogen Normal (Normal)
== END | disposition home or self-care (01) ==
LOC: LAB 14:43 → LABSPEC 14:43
PROVIDERS: PCP Internal Medicine; Referring Provider Internal Medicine; Visit Provider Internal Medicine
DX: R82.90 Unspecified abnormal findings in urine (principal)
CPT/HCPCS: 81002; 87086; 87088; 87186

== ENCOUNTER → 2019-12-26 | Outpatient (CLI) | payer MEDICAID, SELFPAY ==
[2019-12-26 16:17] LABS: Color, Urine Yellow (Yellow); Glucose, Dipstick 250 mg/dl (Normal); Ketone-Dipstick Negative (Negative); Leukocyte Esterase-Dipstick 500 /ul (Negative); Nitrite-Dipstick Negative (Negative); Occult Blood-Urine 25 /ul (Negative); Protein-Dipstick Negative (Negative); Urine Bilirubin Dipstick Negative (Negative); Urine Clarity Cloudy (Clear); Urine Urobilinogen Normal (Normal)
== END | disposition home or self-care (01) ==
LOC: LABSPEC 16:02
PROVIDERS: PCP Internal Medicine; Referring Provider Internal Medicine; Visit Provider Internal Medicine
DX: R39.89 Other symptoms and signs involving the genitourinary system (principal)
CPT/HCPCS: 81002; 87077; 87086; 87088; 87186

== ENCOUNTER → 2020-03-21 | Outpatient (CLI) | payer MEDICAID, SELFPAY ==
[2020-01-17 09:54] VITALS: BMI 34.7
== END | disposition home or self-care (01) ==
LOC: LABSPEC 12:49
PROVIDERS: PCP Internal Medicine; Referring Provider Internal Medicine; Visit Provider Internal Medicine
DX: R39.89 Other symptoms and signs involving the genitourinary system (principal)
CPT/HCPCS: 87077; 87086; 87088; 87186

== ENCOUNTER → 2020-05-03 | Outpatient (CLI) | payer MEDICAID, SELFPAY ==
[2020-01-17 09:54] VITALS: BMI 34.7
== END | disposition home or self-care (01) ==
LOC: LABSPEC 10:54
PROVIDERS: PCP Internal Medicine; Referring Provider Internal Medicine Critical Care Medicine; Visit Provider Internal Medicine Critical Care Medicine
DX: J96.10 Chronic respiratory failure, unspecified whether with hypoxia or hypercapnia (principal)
CPT/HCPCS: 87070; 87077; 87186; 87205

== ENCOUNTER 2020-05-07 16:13 | Observation (INO) | payer MEDICAID, SELFPAY ==
[2020-01-17 09:54] VITALS: BMI 34.7
--- NOTE | 2020-05-07 16:35 | HP.PCM_ITS ---
Problem List (1) Tracheobronchitis Status: Acute (2) Chronic respiratory failure Status: Chronic Qualifiers: Comment: Current LTV A/C 14, 240 mL PS 8 with 3 LPM, transition to Trilogy TV 240 with starting low pressures of 5 (3) Cerebral palsy Status: Chronic Qualifiers: (4) Seizure Status: Chronic History of Present Illness Date of Admission: 05/07/20 Chief Complaint: inreased mucus secretions The patient is a 30 year old F with pmhx of cerebral palsy with chronic hypoxic respiratory failure chronically on home ventilator, quadriplegic, hx seizures last 2011, hx c diff colitis, who presented to the ER as a direct admit from her glass crusher. She has been having this issue intermittently for the last several weeks. Her caregiver notes that it seems to happen for 2-3 days at a time. She will have increased clear sputum from her tracheostomy, and it will then improve spontaneously. The last several days she notes that it seems to be improving. The patient has been quarantined since the beginning of and has not left. She has been in touch with pulmonology indirectly. The patients caregivers however have been outside the house. The patients adopted mother took a sputum sample that she collected at home to the office which resulted 05/03 with Serratia, Acinetobacter, Pseudomonas, and Staph. The patients caregivers notes no incresaed cough, no fevers, or chills, and says that she does not seem to be acting like she is sick. She sometimes has wheezing and rhonchi and sometimes says she has chest pain. She has not had increased o2 demand or SOB.The patient has had increased loose output from her ostomy and seems more tired during the day. [] Past Medical History Past Medical History (Chronic Problems): Chronic Problems (Last Reviewed 01/17/20 @ 10:15 by DAX Shah) Allergic rhinitis (Chronic) Chronic respiratory failure (Chronic) Current LTV A/C 14, 240 mL PS 8 with 3 LPM, transition to Trilogy TV 240 with starting low pressures of 5 Cerebral palsy (Chronic) Seizure (Chronic) Medical History: Medical History (Last Reviewed 01/17/20 @ 10:15 by DAX Shah) Pneumonia (Resolved) J18.9 Cerebral palsy (Chronic) G80.9 Seizure (Chronic) R56.9 Severe sepsis (Resolved) A41.9, R65.20 C. 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 Paraplegia G82.20 Spastic hemiplegic cerebral palsy G80.2 Vitamin D deficiency E55.9 Streptococcus pneumoniae A49.1 Allergies linezolid Allergy (Severe, Verified 01/17/20 09:49) Other - seizure & coma vancomycin Allergy (Severe, Verified 01/17/20 09:49) Other - kidney failure tobramycin Allergy (Intermediate, Verified 01/17/20 09:49) Other - turned beet red nafcillin Allergy (Mild, Verified 01/17/20 09:49) Rash benzoin Allergy (Unknown, Verified 01/17/20 09:49) Rash milk Allergy (Unknown, Verified 01/17/20 09:49) Other PER ALLERGY TESTING soy Allergy (Unknown, Verified 01/17/20 09:49) Other POSTIVE DURING ALLERGY TESTING. polyethylene glycol 3350 [From Miralax] Adverse Reaction (Unknown, Verified 01/17/20 09:49) Hives Home Medications: Ambulatory Orders Medication Instructions Recorded Baclofen [Lioresal] 30 mg GT TID 09/02/13 diazepam 5 mg/mL oral concentrate 5 mg PO BID ml 08/28/17 diazepam 5 mg/mL oral concentrate 7 mg PO QHS ml 08/28/17 oxcarbazepine 300 mg/5 mL (60 540 mg PO BID ml 08/28/17 mg/mL) oral suspension lisinopril 2.5 mg tablet 2.5 mg PO DAILY 08/04/19 flash glucose scanning reader See Rx Instructions .ROUTE 08/18/19 .MEDSUPPLY #1 ea flash glucose sensor See Rx Instructions .ROUTE 08/18/19 .MEDSUPPLY #2 ea Phenazopyridine HCl [Pyridium] 200 mg GT TID PRN 11/24/19 cetirizine 1 mg/mL oral solution 10 mg PO QDAY PRN #480 ml 01/17/20 levalbuterol HCl 1.25 mg/3 mL 1.25 mg INHALATION Q6H #180 vial 01/17/20 solution for nebulization montelukast 10 mg tablet 10 mg PO QPM #30 tab 01/17/20 insulin aspart U-100 100 unit/mL See Rx Instructions SC .5 x qd #45 02/01/20 (3 mL) subcutaneous pen ml IV tubing #7 ea 05/06/20 alcohol swab #42 ea 05/06/20 ceftriaxone 1 gram intravenous 1 g .ROUTE Q24H 7 Days #7 ea 05/06/20 solution sodium chloride 0.9 % (flush) 0.9 % INTRA-CATH DAILY #300 ml 05/06/20 Surgical History: Surgical History (Last Reviewed 01/17/20 @ 10:15 by Dory Victor, MEDICAL FACILITIES SECTION DIRECTOR-C) Gastrostomy tube in place Z93.1 2000 Presence of intrathecal baclofen pump Z98.890 placed in 1998 & 2003 Tracheostomy status Z93.0 placed in 2002 rods to back placed - 2000; lengthened 2001 H/O spinal fusion Z98.1 2003 Status post Jorje fundoplication Z98.890 2002 derotatox ostomies 1992 eyes straightened 1992 surgery on gland under tongue 1992 tendonatomies 1990 Surgical History: - Psychiatric History: No pertinent psych hx 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 Paternal History Items: No pertinent history, - - unknown to do pt being adopted. Review of Systems Constitutional: Reports: Fatigue. Denies: Chills, Fever, Weight Change HEENT: Denies: Head Aches, Sinus Congestion, Sinus Drainage Cardiovascular: Reports: Chest Pain. Denies: Edema, Palpitations Respiratory: Reports: Wheezing. Denies: Cough, Shortness of Breath, Shortness of breath at rest, Sputum production Gastrointestinal: Reports: - - increased loose output from ostomy. Denies: Abdominal Pain, Nausea, Vomiting Genitourinary: Denies: Dysuria Musculoskeletal: Denies: Joint Pain, Joint Tenderness Skin: Denies: Lesions, Rash, Wounds Neurological: Denies: Numbness, Tingling, Focal weakness Psychiatric: Denies: Anxiety, Depression, Homicidal Ideations, Suicidal Ideations Hematologic/ Lymphatic: Denies: Easy Bruising, Easy Bleeding VTE Information - Inpt Only VTE Present on Admission: No VTE Mechan Device Prophylaxis: None VTE Pharm Prophylaxis ordered?: Yes Patient Problems: Active and Suspected Problems (Last Reviewed 01/17/20 @ 10:15 by Dory Victor MEDICAL FACILITIES SECTION DIRECTOR-C) Tracheobronchitis (Acute) - Physical Exam Vitals/I&O's: Body Mass Index (BMI) 34.7 General: Alert, Cooperative HEENT: Atraumatic, PERRLA, EOMI, Normocephalic Neck: Supple, No JVD, Negative Carotid Bruits Lungs: Clear to auscultation, Diminished Cardiovascular: No murmurs, Tachycardic Abdomen: Bowel Sounds Present, Soft, Non Tender Extremities: No edema, Capillary Refill Less than 3 Seconds Skin: No rashes, No breakdown Musculoskeletal: No Tenderness to Palpation of Joints or Extremities Neurological: Cranial nerves II-XII grossly intact Psych/Mental Status: Normal Affect, Appropriate Assessment/Plan All Active Problems (Last Reviewed 01/17/20 @ 10:15 by Dory Victor MEDICAL FACILITIES SECTION DIRECTOR-C) Tracheobronchitis (Acute) Pneumonia (Resolved) Severe sepsis (Resolved) C. difficile diarrhea (Acute) 1. Tracheobronchitis, with chronic respiratory failure permanent vent use - polymicrobial with various sensitivities - unclear if this is acute or colonization. ID and pulm consulted. Pt with intermittently increased mucus secretions and intermittently with wheezing and rhonchi. Start zosyn. Obtain CBC and CMP. Obtain CXR to see if there is an underlying ventilator associated pna. Obtain COVID swab. As she had intermittent chest pain will obtain troponin and EKG. 2. Increased loose stools from ostomy- hx cdiff. check stool for cdiff toxin. 3. Cerebral palsy - quadriplegic and on chronic vent, tube feeds, ostomy. Continue baclofen. previously had baclofen pump however it was removed due to infection. Consult nutrition for tube feeds. At home her tube feed regimen is Neocate iesha 290 cc QID. 4. Hx seizures - last seizure 2011 while on vancomycin. continue trileptal 5. DMt2 - continue home insulin + SSI. DVT ppx: lovenox DC planning: home with caregivers at DC This patient was seen by Antwon Pardo PA-C under the supervision of Dr. Miranda.
[2020-05-07 16:40] VITALS: BMI 24.9
--- NOTE | 2020-05-07 16:54 | EKG12_ITS ---
Test Reason : CHEST PAIN Blood Pressure : / mmHG Vent. Rate : 085 BPM Atrial Rate : 085 BPM P-R Int : 130 ms QRS Dur : 080 ms QT Int : 348 ms P-R-T Axes : 012 007 066 degrees QTc Int : 414 ms Normal sinus rhythm Normal ECG When compared with ECG of 10-JAN-2019 14:34, No significant change was found Confirmed by SHANDRA LEIJA, DIEGO ([id number]), avid editor KRYSTYNA ANDERSON ([id number]) on 05/13/2020 1:50:03 PM Referred By: Edson Villalobos Confirmed By:PRIETO DEVI MD
--- NOTE | 2020-05-07 17:00 | RAD_ITS ---
STUDY: X-RAY CHEST REASON FOR EXAM: Female, 30 years old. pneumonia TECHNIQUE: Single AP portable view of the chest. COMPARISON: 11/24/2019 FINDINGS: Tracheostomy tube which is unchanged. The lungs are clear and expanded. There is no demonstrated pleural abnormality. There is moderate cardiac enlargement. Normal mediastinum and glenn. Normal visualized pulmonary arteries. Normal visualized aortic arch and descending thoracic aorta. Dextroscoliosis of the thoracolumbar spine with a spinal angelo. Normal visualized ribs, clavicles, and shoulders. There is no demonstrated abnormality of the visualized soft tissue structures of the upper abdomen. RAD/Chest 1 View (Portable) IMPRESSION: No active disease. Electronically Signed: Jarvis Veronica MD at 17:15 EDT Tel , Service support ,
[2020-05-07 17:30] VITALS: BMI 24.9
[2020-05-07 18:02] LABS: Absolute Lymphocyte Count 1.88 X10^3/uL (0.83-4.51); Absolute Neutrophil Count 5.5 X10^3/uL (2.0-7.7); Basophil# 0.03 X10^3/uL; Basophil% 0.4 % (0-1); Eosinophil# 0.12 X10^3/uL; Eosinophils% 1.4 % (0-5); Hemoglobin 12.9 g/dL (12.0-15.0); Lymphocyte # 1.88 X10^3/ul (4.0); Lymphocyte % 22.3 % (19-41); Mean Corp Hgb Conc 33.9 g/dL (32-36); Mean Corpuscular Hgb 32.3 pg (27.0-32.0); Mean Platelet Vol. 10.6 fl (6.2-12.0); Monocyte# 0.86 X10^3/uL; Monocyte% 10.2 % (0-10); NRBC Flagged by Analyzer 0 % (0-5); Neutrophil # 5.51 X10^3/uL (2.7-7.7); Neutrophil % 65.3 % (47-70); Platelet Count 302 K/mm3 (150-450); RBC Distribution Width CV 11.4 % (11.6-14.6); RBC Distribution Width SD 39.3 fl (35.1-43.9); White Blood Count 8.4 K/mm3 (4.4-11.0)
[2020-05-07 18:15] VITALS: PULSE 96
[2020-05-07 18:17] LABS: ALB/GLOB Ratio 0.9 RATIO (0.9-2.4); AST(SGOT) 17 U/L (15-37); Alanine Aminotransfer ALT/SGPT 32 U/L (13-56); Albumin, Serum 3.8 g/dL (3.2-5.0); Alkaline Phosphatase 80 U/L (45-117); Anion Gap 4 (5-15); BUN 5 mg/dL (7-18); BUN/Creat Ratio 13.2 RATIO (10-20); Calcium,Total 9.6 mg/dL (8.5-10.1); Chloride 105 mmol/L (98-107); Creatinine, Serum 0.38 mg/dL (0.55-1.02); EST Glomerular Filtration Rate 212 mL/min (>60); Est Glom Filt Rate - Afr Amer 257 mL/min (>60); Estimated Creatinine Clearance 166.02 ml/min; Globulin 4.2 g/dL (2.2-4.2); Glucose 87 mg/dL (74-106); Potassium 3.7 mmol/L (3.5-5.1); Sodium Level 140 mmol/L (136-145)
[2020-05-07] MEDS: 0.9% Saline Lock 10 ML Syringe IV (18:46)
[2020-05-07 18:56] LABS: Bedside Glucose 72 mg/dL (70-110)
[2020-05-07 19:00] VITALS: BP 123/69; PULSE 93; PULSE 99; RESP 14; TEMP 37; O2SAT 100
[2020-05-07 19:44] LABS: Probe Check PASS; Specimen Processing Control PASS
[2020-05-07 22:00] VITALS: BP 116/69; PULSE 86; RESP 14; TEMP 36.7; O2SAT 97
[2020-05-08] VITALS (8 sets, daily range): BP systolic 120–129; BP diastolic 69–80; PULSE 57–101; RESP 14–17; TEMP 36.5–37.2; O2SAT 99–100; BMI 24.9
[2020-05-08] MEDS: Enoxaparin 40 MG/0.4 ML Syringe SC (07:30)
--- NOTE | 2020-05-08 07:55 | PCM.CONS.PUL ---
Reason for Consult Date of Consultation: 05/08/20 Reason for Consultation: Ventilator associated pneumonia History of Present Illness: The patient is a 30-year-old female, with a history as outlined below, who presented to the hospital as a direct admit over concerns for possible ventilator associated pneumonia. The patient recently had increased secretion output and mucous plugging. Subsequent sputum culture that was obtained revealed growth for Serratia marcescens, Acinetobacter, Pseudomonas and staph aureus. Given the complex nature of this polymicrobial infection, the patient was referred to the hospital for IV antimicrobial therapy. 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 On presentation to the hospital, the patient was noted to be afebrile and hemodynamically stable. She was maintaining appropriate oxygen saturations on her home ventilator setting. Laboratory evaluation revealed a normal white blood cell count. Chemistry profile was unrevealing. Chest x-ray revealed no acute cardiopulmonary process. The patient was subsequently admitted to the progressive care unit, where she was maintained on Zosyn. Infectious diseases was consulted to evaluate the patient to assist with antimicrobial management. Past Medical History Past Medical History (Chronic Problems): Chronic Problems (Last Reviewed 01/17/20 @ 10:15 by DAX Shah) Allergic rhinitis (Chronic) Chronic respiratory failure (Chronic) Current LTV A/C 14, 240 mL PS 8 with 3 LPM, transition to Trilogy TV 240 with starting low pressures of 5 Cerebral palsy (Chronic) Seizure (Chronic) Medical History: Medical History (Last Reviewed 01/17/20 @ 10:15 by Dory Victor NP-C) Pneumonia (Resolved) J18.9 Cerebral palsy (Chronic) G80.9 Seizure (Chronic) R56.9 Severe sepsis (Resolved) A41.9, R65.20 C. 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 Paraplegia G82.20 Spastic hemiplegic cerebral palsy G80.2 Vitamin D deficiency E55.9 Streptococcus pneumoniae A49.1 Allergies linezolid Allergy (Severe, Verified 01/17/20 09:49) Other - seizure & coma vancomycin Allergy (Severe, Verified 01/17/20 09:49) Other - kidney failure tobramycin Allergy (Intermediate, Verified 01/17/20 09:49) Other - turned beet red nafcillin Allergy (Mild, Verified 01/17/20 09:49) Rash benzoin Allergy (Unknown, Verified 01/17/20 09:49) Rash milk Allergy (Unknown, Verified 01/17/20 09:49) Other PER ALLERGY TESTING soy Allergy (Unknown, Verified 01/17/20 09:49) Other POSTIVE DURING ALLERGY TESTING. polyethylene glycol 3350 [From Miralax] Adverse Reaction (Unknown, Verified 01/17/20 09:49) Hives Home Medications: Ambulatory Orders Medication Instructions Recorded Baclofen [Lioresal] 30 mg GT TID 09/02/13 diazepam 5 mg/mL oral concentrate 7 mg PO BID ml 08/28/17 diazepam 5 mg/mL oral concentrate 9 mg PO QHS ml 08/28/17 oxcarbazepine 300 mg/5 mL (60 480 mg PO BID ml 08/28/17 mg/mL) oral suspension flash glucose scanning reader See Rx Instructions .ROUTE 08/18/19 .MEDSUPPLY #1 ea flash glucose sensor See Rx Instructions .ROUTE 08/18/19 .MEDSUPPLY #2 ea Phenazopyridine HCl [Pyridium] 200 mg GT TID PRN 11/24/19 cetirizine 1 mg/mL oral solution 10 mg PO QDAY PRN #480 ml 01/17/20 Insulin Aspart [Insulin Aspart See Rx Instructions SUBCUT .5 x qd 05/07/20 Flexpen] Levalbuterol HCl 1.25 mg INHALATION BID 05/07/20 Montelukast Sodium 10 mg PO QPM 05/07/20 Nut.tx.impaired Digest Fxn 112.5 gm GT 4X/DAY 05/07/20 [Neocate Rell] Surgical History: Surgical History (Last Reviewed 01/17/20 @ 10:15 by Dory Victor, ELINA-C) Gastrostomy tube in place Z93.1 2000 Presence of intrathecal baclofen pump Z98.890 placed in 1998 & 2003 Tracheostomy status Z93.0 placed in 2002 rods to back placed - 2000; lengthened 2001 H/O spinal fusion Z98.1 2003 Status post Jorje fundoplication Z98.890 2003 derotatox ostomies 1992 eyes straightened 1992 surgery on gland under tongue 1992 tendonatomies 1990 Surgical History: - Psychiatric History: No pertinent psych hx DIRECTOR CHILD History: No pertinent DIRECTOR CHILD history Lives: With Family Smoking Status: Never smoker Tobacco Use: Non-smoker Alcohol: None Drugs: None - *Family History Maternal History Items: No pertinent history, - - unknown to do pt being adopted. Paternal History Items: No pertinent history, - - unknown to do pt being adopted. Review of Systems Unable to obtain accurate/complete ROS d/t: Due to baseline cerebral palsy and nonverbal status. Objective: The patient's most recent lab work, culture data and imaging studies have all been personally reviewed. - Physical Exam Vitals/I&O's: Vital Signs Temp Pulse Resp BP Pulse Ox 97.7 F L 57 L 14 123/70 H 100 05/08/20 04:00 05/08/20 07:04 05/08/20 04:00 05/08/20 04:00 05/08/20 04:00 Oxygen Flow Rate (L/min) 3 Oxygen Delivery Method Mechanical Ventilator Weight: 107 lb 1.6 oz Body Mass Index (BMI) 24.9 Intake and Output for Last 24 Hours 05/06/20 05/07/20 05/08/20 23:59 23:59 23:59 Intake Total 750 / 750 Output Total 400 / 400 Balance 350 / 350 General: Alert, No apparent distress HEENT: Atraumatic, Normocephalic Oral: Moist Mucosa, - - Macroglossia Neck: Supple, No Nodes, Trachea Midline Lungs: Normal air movement, - - Mechanical breath sounds. No significant secretions. Cardiovascular: Regular rate, Regular Rhythm Abdomen: Bowel Sounds Present, Soft, Non Tender, - Extremities: No clubbing, No cyanosis, - - Contracted extremities with spastic quadriplegia Skin: No breakdown Neurological: - - Baseline neurological status. Labs (Last 48 Hours) 08/25/20 08/25/20 08/25/20 17:44 17:44 17:44 WBC 8.4 RBC 4.00 L Hgb 12.9 Hct 38.0 MCV 95.0 MCH 32.3 H MCHC 33.9 RDW Std Deviation 39.3 RDW Coeff of Anne 11.4 L Plt Count 302 MPV 10.6 Immature Gran % (Auto) 0.400 Neut % (Auto) 65.3 Lymph % (Auto) 22.3 [place] % (Auto) 10.2 H Eos % (Auto) 1.4 Baso % (Auto) 0.4 Absolute Neuts (auto) 5.5 Absolute Lymphs (auto) 1.88 Nucleated RBC % 0 Sodium 140 Potassium 3.7 Chloride 105 Carbon Dioxide 31.0 Anion Gap 4 L BUN 5 L Creatinine 0.38 L Estim Creat Clear Calc 166.02 Est GFR (MDRD) Af Amer 257 Est GFR (MDRD) Non-Af 212 BUN/Creatinine Ratio 13.2 Glucose 87 Calcium 9.6 Total Bilirubin 0.20 AST 17 ALT 32 Alkaline Phosphatase 80 Troponin I < 0.015 Total Protein 8.0 Albumin 3.8 Globulin 4.2 Albumin/Globulin Ratio 0.9 COVID-19 (EVAN) POC Glucose 05/07/20 05/07/20 18:05 18:09 WBC RBC Hgb Hct MCV MCH MCHC RDW Std Deviation RDW Coeff of Anne Plt Count MPV Immature Gran % (Auto) Neut % (Auto) Lymph % (Auto) [place] % (Auto) Eos % (Auto) Baso % (Auto) Absolute Neuts (auto) Absolute Lymphs (auto) Nucleated RBC % Sodium Potassium Chloride Carbon Dioxide Anion Gap BUN Creatinine Estim Creat Clear Calc Est GFR (MDRD) Af Amer Est GFR (MDRD) Non-Af BUN/Creatinine Ratio Glucose Calcium Total Bilirubin AST ALT Alkaline Phosphatase Troponin I Total Protein Albumin Globulin Albumin/Globulin Ratio COVID-19 (EVAN) Negative POC Glucose 72 Microbiology 05/07/20 18:40 Urine Catheter - Catheter Streptococcus pneumoniae Antigen (M - Final 05/07/20 18:40 Urine Catheter - Catheter Legionella Antigen - Final Clinical Impression(s) from Imaging Studies Chest X-Ray 05/07/20 17:00 IMPRESSION: No active disease. Electronically Signed: Jarvis Veronica MD at 17:15 EDT Tel , Service support , Current Medications Acetaminophen (Tylenol Liquid) 650 mg GT Q6H PRN PRN PRN Reason: FEVER Albuterol Sulfate (Ventolin Aerosols) 2.5 mg INHALATION Q2H PRN PRN PRN Reason: SOB &/OR WHEEZING Albuterol/Ipratropium (Duoneb) 3 ml INHALATION Q4HWA.RT [facility] Last Admin: 05/08/20 07:18 Dose: Not Given Documented by: Baclofen (Lioresal) 30 mg GT TID [facility] Last Admin: 05/07/20 21:19 Dose: Not Given Documented by: Dextrose (D50w Syringe) 0 gm IV X1 PRN; Protocol PRN Reason: Hypoglycemia Diazepam 5 mg/ Diazepam 2 mg 7 mg PO DAILY@0600 [facility] Diazepam 5 mg/ Diazepam 4 mg 9 mg PO QHS [facility] Last Admin: 05/07/20 21:19 Dose: Not Given Documented by: Diazepam (Valium) 5 mg PO DAILY@1400 [facility] Enoxaparin Sodium (Lovenox) 40 mg SC DAILY@0600 [facility] Last Admin: 05/08/20 07:30 Dose: 40 mg Documented by: Glucagon () 1 mg IM .X1 PRN PRN Reason: Hypoglycemia Piperacillin Sod/Tazobactam (Sod 3.375 gm/ Sodium Chloride) 50 mls @ 12.5 mls/hr IV Q8 [facility] Last Admin: 05/08/20 05:49 Dose: 12.5 mls/hr Documented by: Sodium Chloride () 250 mls @ 15 mls/hr IV .[id number] PRN PRN Reason: Saline Flush Sodium Chloride () 250 mls @ 15 mls/hr IV .[id number] PRN PRN Reason: Additional IVPB Infusion Insulin Human Lispro (Humalog Kwikpen (Bkc)) 0 unit SC ACHS [facility]; Protocol Last Admin: 05/07/20 21:15 Dose: Not Given Documented by: Insulin Human Lispro (Humalog Kwikpen (Bkc)) 8 unit SC ACHS [facility] Loratadine (Claritin) 10 mg GT DAILY PRN PRN Reason: ALLEGY SYMPTOMS Montelukast Sodium (Singulair) 10 mg PO QHS [facility] Last Admin: 05/07/20 21:19 Dose: Not Given Documented by: Non-Formulary Medication (Nut.Tx.Impaired Digest Fxn [Neocate Rell]) 400 gm GT 4X/DAY BECKY Non-Formulary Medication (Phenazopyridine Hcl [Pyridium]) 200 mg GT TID PRN PRN Reason: UTI Oxcarbazepine (Oxcarbazepine) 480 mg PO BID BECKY Sodium Chloride () 10 - 40 ml IV UD PRN PRN Reason: SALINE FLUSH Last Admin: 05/07/20 18:46 Dose: 10 ml Documented by: Assessment/Plan All Active Problems (Last Reviewed 01/17/20 @ 10:15 by Dory Victor, ELINA-C) Tracheobronchitis (Acute) Pneumonia (Resolved) Severe sepsis (Resolved) C. difficile diarrhea (Acute) RECOMMENDATIONS: 1. Transition patient to home vent with humidity. Continue home vent settings. 2. Continue bronchopulmonary hygiene. 3. Continue antimicrobials and await infectious diseases consultation. IMPRESSIONS: 1. Suspected tracheobronchitis The patient presented with a history of increasing secretions and some mucous plugging, without radiographic evidence of pneumonia. She has remained afebrile without evidence of leukocytosis. Her respiratory status is at baseline with chronic vent support. Cultures obtained on May 03 were polymicrobial in nature and included Serratia, Acinetobacter, Pseudomonas and staph aureus. Infectious diseases consultation is currently pending to assist with antimicrobial management. Will defer management accordingly. Continue patient on vent per home settings. Continue bronchopulmonary hygiene as ordered. This note was generated with [employer] dictation software. It may contain incorrect words, spelling, and punctuation that were not noted in checking the note before signing. Inpatient E&M: 04530 Init Hosp L3
[2020-05-08] MEDS: Insulin Lispro 100 UNIT/ML INSULN.PEN 8 UNIT SC ×2 (08:23→11:50)
[2020-05-08] MEDS: Baclofen 10 MG Tablet 30 MG GT ×2 (08:36→14:30)
--- NOTE | 2020-05-08 09:35 | NURSING ---
wound photo: left ear
--- NOTE | 2020-05-08 09:38 | NURSING ---
Medication times reviewed with patient's mom and RN discussed same with Neil pharmacist.
[2020-05-08 10:01] LABS: Bedside Glucose 118 mg/dL (70-110)
[2020-05-08] MEDS: diazePAM 2 MG Tablet (10:06)
[2020-05-08] MEDS: diazePAM 5 MG Tablet (10:06)
--- NOTE | 2020-05-08 11:35 | DCINST_ITS ---
- Discharge Diagnoses Current Active Problems: Current Active and Chronic Problems (Last Reviewed 01/17/20 @ 10:15 by DAX Shah) Tracheobronchitis (Acute) You will use the following diet at home:: Other - continue prior Tube feeds. Discharge Activity: Return to Normal Activity Allergies/Adverse Reactions: Allergies linezolid Allergy (Severe, Verified 01/17/20 09:49) Other - seizure & coma vancomycin Allergy (Severe, Verified 01/17/20 09:49) Other - kidney failure tobramycin Allergy (Intermediate, Verified 01/17/20 09:49) Other - turned beet red nafcillin Allergy (Mild, Verified 01/17/20 09:49) Rash benzoin Allergy (Unknown, Verified 01/17/20 09:49) Rash milk Allergy (Unknown, Verified 01/17/20 09:49) Other PER ALLERGY TESTING soy Allergy (Unknown, Verified 01/17/20 09:49) Other POSTIVE DURING ALLERGY TESTING. polyethylene glycol 3350 [From [employer]] Adverse Reaction (Unknown, Verified 01/17/20 09:49) Hives Medications to take at Discharge Baclofen [Lioresal] 30 mg GT TID 09/02/13 diazepam 5 mg/mL oral concentrate 7 mg PO BID ml 08/28/17 diazepam 5 mg/mL oral concentrate 9 mg PO QHS ml 08/28/17 oxcarbazepine 300 mg/5 mL (60 mg/mL) oral suspension 480 mg PO BID ml 08/28/17 flash glucose scanning reader See Rx Instructions .ROUTE .MEDSUPPLY #1 ea 08/18/19 flash glucose sensor See Rx Instructions .ROUTE .MEDSUPPLY #2 ea 08/18/19 Phenazopyridine HCl [Pyridium] 200 mg GT TID PRN 11/24/19 cetirizine 1 mg/mL oral solution 10 mg PO QDAY PRN #480 ml 01/17/20 Insulin Aspart [Insulin Aspart Flexpen] See Rx Instructions SUBCUT .5 x qd 05/07/20 Levalbuterol HCl 1.25 mg INHALATION BID 05/07/20 Montelukast Sodium 10 mg PO QPM 05/07/20 Nut.tx.impaired Digest Fxn [Neocate Rell] 112.5 gm GT 4X/DAY 05/07/20 Primary Care Physician: Sandra Bermudez DO [Primary Care Provider] - Please follow up with your Primary Care Physician in: 1-2 weeks Test Results: Test results from this visit will be discussed in further detail at your follow- up appointment, if applicable. Please Follow Up With: Lawrence Weiner MD When: 2 weeks Proposed Discharge Date: 05/08/20
--- NOTE | 2020-05-08 11:48 | PHA.DC.MR ---
Pharmacy Service has performed discharge medication reconciliation for this patient. The patient's discharge medication list was reviewed for discrepancies and discrepancies were resolved. Home Medications Baclofen [Lioresal] 30 mg GT TID 09/02/13 diazepam 5 mg/mL oral concentrate 7 mg PO BID ml 08/28/17 diazepam 5 mg/mL oral concentrate 9 mg PO QHS ml 08/28/17 oxcarbazepine 300 mg/5 mL (60 mg/mL) oral suspension 480 mg PO BID ml 08/28/17 flash glucose scanning reader See Rx Instructions .ROUTE .MEDSUPPLY #1 ea 08/18/19 flash glucose sensor See Rx Instructions .ROUTE .MEDSUPPLY #2 ea 08/18/19 Phenazopyridine HCl [Pyridium] 200 mg GT TID PRN 11/24/19 cetirizine 1 mg/mL oral solution 10 mg PO QDAY PRN #480 ml 01/17/20 Insulin Aspart [Insulin Aspart Flexpen] See Rx Instructions SUBCUT .5 x qd 05/07/20 Levalbuterol HCl 1.25 mg INHALATION BID 05/07/20 Montelukast Sodium 10 mg PO QPM 05/07/20 Nut.tx.impaired Digest Fxn [Neocate Rell] 112.5 gm GT 4X/DAY 05/07/20
[2020-05-08] MEDS: 0.9% Saline Lock 10 ML Syringe IV ×2 (11:53→14:31)
--- NOTE | 2020-05-08 12:06 | PCM.NTREPORT ---
Nutrition Therapy Report - History Nutrition Services has been consulted to:: Manage nutrient details of diet order, Manage enteral nutrition Current diet / nutrition support order:: NPO; home tube feeds - Anthropometric Measurements Height:: 4 ft 7 in Weight:: 48.58 kg Body Mass Index (BMI):: 24.9 - Relevant Labs Relevant Labs:: RBC 4.00 M/mm3 (4.2-5.4) L 05/07/20 17:44 MCH 32.3 pg (27.0-32.0) H 05/07/20 17:44 RDW Coeff of Anne 11.4 % (11.6-14.6) L 05/07/20 17:44 Sebastian % (Auto) 10.2 % (0-10) H 05/07/20 17:44 Anion Gap 4 (5-15) L 05/07/20 17:44 BUN 5 mg/dL (7-18) L 05/07/20 17:44 Creatinine 0.38 mg/dL (0.55-1.02) L 05/07/20 17:44 - Assessment Food / Nutrition-Related History:: Pt is non-verbal. Quadriplegic requiring chronic mechanical ventilation. Spoke w/ mom who is caregiver. Pt has followed / [facility] outpatient nutrition services previously. Has allergy to soy and milk. Uses Neocate Rell formula via PEG at home. Per mom, pt gets 3/4 c. + 3 T. powder mixed in 300mL water 4x/day (at 0800, 1100, 1400, and 1700). 60mL H2O flush after each feed plus 150mL flush 4x/day in between feeds. Additionally, mom states they mix 1 T. benefiber in formula at the 0800 and 1700 feedings. No recent A1C available, but mom states blood glucose has been adequately controlled w/ sliding scale insulin. States stools are chronically loose, but have been worse recently. Family unsure of wt hx- no way to weigh pt at home. Estimated UBW 105-110# per mom. - Nutrition Diagnosis Problem / Etiology / Signs & Symptoms (PES):: Swallowing difficulty related to tracheostomy, chronic resp. failure, and cerebral palsy as evidenced by need for complete nutrition support via PEG. Evidence of Malnutrition Exists:: No - Nutrition Intervention Nutrition Prescription:: [id number] calories/day, 58-68 g protein/day. Estimating pt's nutritional needs is difficult given ventilation requirements, CP, quadriplegia- would benefit from indirect calorimetry to best estimate energy requirements which is not available at [facility]. Family reports no obvious changes in wt (tighter/looser clothing, difficulty moving pt, etc), so will assume current tube feeds are meeting pt's energy needs. - Food / Nutrient Delivery Interventions Summary of nutrition intervention:: Using [facility] resources for healthcare professionals, RDN converted home measurements (3/4 c. + 3 T. of powder per feeding) to determine that each feeding provides approximately 112.5 g Neocate Rell, totaling 450 g per day. There are 479 calories, 14.8 g protein per 100 g of powder, so it is estimated that tube feeds are providing 2155.5 calories, 66.6 g protein per day. Total fluid from formula/flushes is 2040mL/day (300mL water x4, 60mL flush x 4, 150mL flush x4). Provided mom w/ Neocate Rell dilution chart for her reference. Discussed calories/protein being provided by current tube feeds. Discussed likelihood of continued diarrhea w/ antibiotics as ordered. No further concerns for RDN at this time. Nutrition support ordered as / adjusted to:: Continue home tube feeds via PEG, provided from family as no substitution available in [facility] formulary: -Neocate Rell- 3/4 c. + 3 T. formula mixed in 300mL water 4x/day (at 0800, 1100, 1400, 1700). -60mL H2O flush after each feeding. -150mL flush 4x/day in between each feeding. As ordered, tube feeds provide 2155.5 calories, 66.6 g protein, and 2040mL total fluid/day. Would recommend continuing home fiber supplement- 1 T. benefiber mixed in tube feed formula at 0800 and 1700. Nutrition education provided?: Yes - Discussed w/ mother at bedside. - MNT Monitoring Further MNT monitoring and evaluation required?: Yes MNT Follow-up in:: 3-5 days
[2020-05-08 12:20] LABS: Bedside Glucose 114 mg/dL (70-110)
--- NOTE | 2020-05-08 13:35 | PCM.DC.SUM ---
<Antwon Pardo - Last Filed: 05/08/20 16:11> Discharge Date and Diagnosis Date of Admission: 05/07/20 Date of Discharge: 05/08/20 - Primary Discharge Diagnosis Acute Problems: Active Problems Tracheobronchitis (Acute) - Secondary Discharge Diagnosis Chronic Problems: Chronic Problems (Last Reviewed 01/17/20 @ 10:15 by DAX Shah) Allergic rhinitis (Chronic) Chronic respiratory failure (Chronic) Current LTV A/C 14, 240 mL PS 8 with 3 LPM, transition to Trilogy TV 240 with starting low pressures of 5 Cerebral palsy (Chronic) Seizure (Chronic) Hospital Course and Treatment Imaging Results: CT/Brain/Head without Contrast IMPRESSION: Chronic involutional changes of the brain. CT/Spine Cervical without Contras IMPRESSION: No acute fracture or subluxation. Consultations Nicolas - Pulpb Muro - infectious disease Operations: None Procedures: None Summary of Care Provided: Hospital course: The patient is a 30 year old F with pmhx of cerebral palsy, quadriplegia, chronic ventilator dependency who presented to [facility] as a direct admit referred by Dr. Weiner. She had been having intermittent increased mucus secretions at home. She was admitted with concern for developing ventilator associated infection. She recently had a culture showing multiple organisms Serratia marcescens Acinetobacter [place], pseudomonas aeruginosa, Staphylococcus aureus. She was admitted to the PCU for further work-up. She was started on Zosyn. Infectious disease was consulted, pulmonology was consulted. She remained at her home ventilator settings, with stable respiratory status. She had no fevers or chills. Routine lab work was unremarkable. Chest x-ray was obtained and did not show any underlying infiltrates. She was felt to have a tracheobronchitis. Infectious disease felt that antibiotics were not indicated and zosyn was discontinued. She was discharged home in stable condition. Follow-up with pulmonology in 2 weeks, PCP in 1 to 2 weeks. This patient was seen by Antwon Pardo PA-C under the supervision of Doctor Pino. [] - Physical Exam Vitals/I&O's: Vital Signs Temp Pulse Resp BP Pulse Ox 99.0 F 68 17 120/69 100 05/08/20 08:42 05/08/20 10:56 05/08/20 08:42 05/08/20 08:42 05/08/20 08:42 Oxygen Flow Rate (L/min) 3 Oxygen Delivery Method Mechanical Ventilator Weight: 107 lb 1.609 oz Body Mass Index (BMI) 24.9 Intake and Output for Last 24 Hours 05/06/20 05/07/20 05/08/20 23:59 23:59 23:59 Intake Total 750 / 750 850 / 850 Output Total 400 / 400 Balance 350 / 350 850 / 850 General: Alert, Cooperative HEENT: Atraumatic, PERRLA, EOMI, Normocephalic Neck: Supple, No JVD, Negative Carotid Bruits Lungs: Clear to auscultation, Normal air movement Cardiovascular: Regular rate, No murmurs Abdomen: Bowel Sounds Present, Soft, Non Tender Extremities: No edema, Capillary Refill Less than 3 Seconds Skin: No rashes, No breakdown Musculoskeletal: No Tenderness to Palpation of Joints or Extremities Neurological: Cranial nerves II-XII grossly intact Psych/Mental Status: Normal Affect, Appropriate Microbiology Past 72 Hours 05/07/20 18:40 Urine Catheter - Catheter Streptococcus pneumoniae Antigen (M - Final 05/07/20 18:40 Urine Catheter - Catheter Legionella Antigen - Final Laboratory Results 05/07/20 17:44: WBC 8.4, RBC 4.00 L, Hgb 12.9, Hct 38.0, MCV 95.0, MCH 32.3 H, MCHC 33.9, RDW Std Deviation 39.3, RDW Coeff of Anne 11.4 L, Plt Count 302, MPV 10.6, Immature Gran % (Auto) 0.400, Neut % (Auto) 65.3, Lymph % (Auto) 22.3, [place] % (Auto) 10.2 H, Eos % (Auto) 1.4, Baso % (Auto) 0.4, Absolute Neuts (auto) 5.5, Absolute Lymphs (auto) 1.88, Nucleated RBC % 0 05/07/20 17:44: Sodium 140, Potassium 3.7, Chloride 105, Carbon Dioxide 31.0, Anion Gap 4 L, BUN 5 L, Creatinine 0.38 L, Estim Creat Clear Calc 166.02, Est GFR (MDRD) Af Amer 257, Est GFR (MDRD) Non-Af 212, BUN/Creatinine Ratio 13.2, Glucose 87, Calcium 9.6, Total Bilirubin 0.20, AST 17, ALT 32, Alkaline Phosphatase 80, Total Protein 8.0, Albumin 3.8, Globulin 4.2, Albumin/Globulin Ratio 0.9 05/07/20 17:44: Troponin I < 0.015 05/07/20 18:05: COVID-19 (EVAN) Negative 05/07/20 18:09: POC Glucose 72 05/08/20 08:18: POC Glucose 118 H 05/08/20 11:47: POC Glucose 114 H Current Medications Acetaminophen (Tylenol Liquid) 650 mg GT Q6H PRN PRN PRN Reason: FEVER Albuterol Sulfate (Ventolin Aerosols) 2.5 mg INHALATION Q2H PRN PRN PRN Reason: SOB &/OR WHEEZING Albuterol/Ipratropium (Duoneb) 3 ml INHALATION Q4HWA.RT [facility] Last Admin: 05/08/20 11:30 Dose: Not Given Documented by: Baclofen (Lioresal) 30 mg GT TID@0800,1400,2000 [facility] Dextrose (D50w Syringe) 0 gm IV X1 PRN; Protocol PRN Reason: Hypoglycemia Diazepam 5 mg/ Diazepam 4 mg 9 mg GT QHS [facility] Diazepam 5 mg/ Diazepam 2 mg 7 mg GT BID@0800,1400 [facility] Enoxaparin Sodium (Lovenox) 40 mg SC DAILY@0600 [facility] Last Admin: 05/08/20 07:30 Dose: 40 mg Documented by: Glucagon () 1 mg IM .X1 PRN PRN Reason: Hypoglycemia Piperacillin Sod/Tazobactam (Sod 3.375 gm/ Sodium Chloride) 50 mls @ 12.5 mls/hr IV Q8 [facility] Last Infusion: 05/08/20 09:50 Dose: Infused Documented by: Sodium Chloride () 250 mls @ 15 mls/hr IV .[id number] PRN PRN Reason: Saline Flush Sodium Chloride () 250 mls @ 15 mls/hr IV .[id number] PRN PRN Reason: Additional IVPB Infusion Insulin Human Lispro (Humalog Kwikpen (Bkc)) 0 unit SC ACHS [facility]; Protocol Last Admin: 05/08/20 11:49 Dose: Not Given Documented by: Insulin Human Lispro (Humalog Kwikpen (Bkc)) 8 unit SC ACHS [facility] Last Admin: 05/08/20 11:50 Dose: 8 units Documented by: Loratadine (Claritin) 10 mg GT DAILY PRN PRN Reason: ALLEGY SYMPTOMS Montelukast Sodium (Singulair) 10 mg GT QHS [facility] Non-Formulary Medication (Nut.Tx.Impaired Digest Fxn [Neocate Rell]) 400 gm GT 4X/DAY [facility] Non-Formulary Medication (Phenazopyridine Hcl [Pyridium]) 200 mg GT TID PRN PRN Reason: UTI Oxcarbazepine (Oxcarbazepine) 480 mg GT BID@0800,2000 [facility] Sodium Chloride () 10 - 40 ml IV UD PRN PRN Reason: SALINE FLUSH Last Admin: 05/08/20 11:53 Dose: 10 ml Documented by: Discharge Diet: - - Continue prior home tube feedings. Discharge Activity: Return to Normal Activity Home Medications: Medications to take at Discharge Baclofen [Lioresal] 30 mg GT TID 09/02/13 diazepam 5 mg/mL oral concentrate 7 mg PO BID ml 08/28/17 diazepam 5 mg/mL oral concentrate 9 mg PO QHS ml 08/28/17 oxcarbazepine 300 mg/5 mL (60 mg/mL) oral suspension 480 mg PO BID ml 08/28/17 flash glucose scanning reader See Rx Instructions .ROUTE .MEDSUPPLY #1 ea 08/18/19 flash glucose sensor See Rx Instructions .ROUTE .MEDSUPPLY #2 ea 08/18/19 Phenazopyridine HCl [Pyridium] 200 mg GT TID PRN 11/24/19 cetirizine 1 mg/mL oral solution 10 mg PO QDAY PRN #480 ml 01/17/20 Insulin Aspart [Insulin Aspart Flexpen] See Rx Instructions SUBCUT .5 x qd 05/07/20 Levalbuterol HCl 1.25 mg INHALATION BID 05/07/20 Montelukast Sodium 10 mg PO QPM 05/07/20 Nut.tx.impaired Digest Fxn [Neocate Rell] 112.5 gm GT 4X/DAY 05/07/20 Primary Care Physician: Sandra Bermudez DO [Primary Care Provider] - Please follow up with your Primary Care Physician in: 1-2 weeks Please Follow Up With: Lawrence Weiner MD When: 2 weeks Disposition: Home Minutes spent on discharge:: 35 Patient Condition:: Stable Medical Necessity - Tobacco Use Smoking Status: Never smoker Tobacco Use: Non-smoker Meaningful Use Info Meaningful Use Diagnoses (Choose all that apply): None applicable <Gem Pino - Last Filed: 05/08/20 16:22> Discharge Date and Diagnosis - Primary Discharge Diagnosis Acute Problems: Active Problems (Last Reviewed 01/17/20 @ 10:15 by DAX Shah) Tracheobronchitis (Acute) - Secondary Discharge Diagnosis Chronic Problems: Chronic Problems (Last Reviewed 01/17/20 @ 10:15 by DAX Shah) Allergic rhinitis (Chronic) Chronic respiratory failure (Chronic) Current LTV A/C 14, 240 mL PS 8 with 3 LPM, transition to Trilogy TV 240 with starting low pressures of 5 Cerebral palsy (Chronic) Seizure (Chronic) Hospital Course and Treatment Consultations 05/07/20 16:43 Consult: Onc/Wound/solid waste facility operator Routine Comment: Summary of Care Provided: Patient seen by Antwon Pardo PA-C under my supervision The patient is a 30 year old F with an extensive past medical history which include cerebral palsy with quadriplegia and chronic hypoxic respiratory failure on her home ventilator who was admitted directly to the floor by her food service driver. Patient had been having intermittent increased mucus secretions at home and went see the food service driver in the office. There was concern about developing ventilator associated pneumonia so she was admitted to the hospital. She had recently had respiratory culture which grew Serratia marcescens with Acinetobacter [place] and Pseudomonas aeruginosa as well as Staphylococcus aureus. She was started on IV Zosyn upon admission. Infectious disease was consulted. Chest x-ray showed no acute cardiopulmonary process with no evidence of infiltrates. She was diagnosed with tracheobronchitis. She remained stable and was discharged home on no antibiotics as per ID. ID reviewed patient and did not think that she needed any oral antibiotic.She is to follow up with her PCP, pulmonology and infectious disease. Patient seen and examined prior to discharge. Mother was by her bedside. Per mother, there were no active complaints. O/e: Vital Signs Temp Pulse Resp BP Pulse Ox 99.0 F 68 17 120/69 100 05/08/20 08:42 05/08/20 10:56 05/08/20 08:42 05/08/20 08:42 05/08/20 08:42 [] General: Alert,nonverbal HEENT: Atraumatic, PERRLA, EOMI, Normocephalic Neck: Supple, No JVD, Negative Carotid Bruits Lungs: diminished breath soudns bibasally, no wheezes or crackles. on ventilator via tracheostomy Cardiovascular: No murmurs, normal S1 and S2, no murmurs Abdomen: Bowel Sounds Present, Soft, Non Tender, PEG tube in place Extremities: No edema, Capillary Refill Less than 3 Seconds Skin: No rashes, No breakdown Musculoskeletal: No Tenderness to Palpation of Joints or Extremities, contractures of LEs Neurological: Cranial nerves II-XII grossly intact Psych/Mental Status: Normal Affect, Appropriate Plan is for discharge home today. Rest as per Antwon Pardo PA-C's note, which I have reviewed and endorsed. - Physical Exam Vitals/I&O's: Vital Signs Temp Pulse Resp BP Pulse Ox 99.0 F 68 17 120/69 100 05/08/20 08:42 05/08/20 10:56 05/08/20 08:42 05/08/20 08:42 05/08/20 08:42 Oxygen Flow Rate (L/min) 3 Oxygen Delivery Method Mechanical Ventilator Weight: 107 lb 1.609 oz Body Mass Index (BMI) 24.9 Intake and Output for Last 24 Hours 05/06/20 05/07/20 05/08/20 23:59 23:59 23:59 Intake Total 750 / 750 850 / 850 Output Total 400 / 400 Balance 350 / 350 850 / 850 Microbiology Past 72 Hours 05/07/20 18:40 Urine Catheter - Catheter Streptococcus pneumoniae Antigen (M - Final 05/07/20 18:40 Urine Catheter - Catheter Legionella Antigen - Final Laboratory Results 05/07/20 17:44: WBC 8.4, RBC 4.00 L, Hgb 12.9, Hct 38.0, MCV 95.0, MCH 32.3 H, MCHC 33.9, RDW Std Deviation 39.3, RDW Coeff of Anne 11.4 L, Plt Count 302, MPV 10.6, Immature Gran % (Auto) 0.400, Neut % (Auto) 65.3, Lymph % (Auto) 22.3, [place] % (Auto) 10.2 H, Eos % (Auto) 1.4, Baso % (Auto) 0.4, Absolute Neuts (auto) 5.5, Absolute Lymphs (auto) 1.88, Nucleated RBC % 0 05/07/20 17:44: Sodium 140, Potassium 3.7, Chloride 105, Carbon Dioxide 31.0, Anion Gap 4 L, BUN 5 L, Creatinine 0.38 L, Estim Creat Clear Calc 166.02, Est GFR (MDRD) Af Amer 257, Est GFR (MDRD) Non-Af 212, BUN/Creatinine Ratio 13.2, Glucose 87, Calcium 9.6, Total Bilirubin 0.20, AST 17, ALT 32, Alkaline Phosphatase 80, Total Protein 8.0, Albumin 3.8, Globulin 4.2, Albumin/Globulin Ratio 0.9 05/07/20 17:44: Troponin I < 0.015 05/07/20 18:05: COVID-19 (EVAN) Negative 05/07/20 18:09: POC Glucose 72 05/08/20 08:18: POC Glucose 118 H 05/08/20 11:47: POC Glucose 114 H Current Medications Acetaminophen (Tylenol Liquid) 650 mg GT Q6H PRN PRN PRN Reason: FEVER Albuterol Sulfate (Ventolin Aerosols) 2.5 mg INHALATION Q2H PRN PRN PRN Reason: SOB &/OR WHEEZING Albuterol/Ipratropium (Duoneb) 3 ml INHALATION Q4HWA.RT [facility] Last Admin: 05/08/20 11:30 Dose: Not Given Documented by: Baclofen (Lioresal) 30 mg GT TID@0800,1400,2000 [facility] Last Admin: 05/08/20 14:30 Dose: 30 mg Documented by: Dextrose (D50w Syringe) 0 gm IV X1 PRN; Protocol PRN Reason: Hypoglycemia Diazepam 5 mg/ Diazepam 4 mg 9 mg GT QHS [facility] Diazepam 5 mg/ Diazepam 2 mg 7 mg GT BID@0800,1400 [facility] Last Admin: 05/08/20 14:31 Dose: 7 mg Documented by: Enoxaparin Sodium (Lovenox) 40 mg SC DAILY@0600 [facility] Last Admin: 05/08/20 07:30 Dose: 40 mg Documented by: Glucagon () 1 mg IM .X1 PRN PRN Reason: Hypoglycemia Piperacillin Sod/Tazobactam (Sod 3.375 gm/ Sodium Chloride) 50 mls @ 12.5 mls/hr IV Q8 [facility] Last Admin: 05/08/20 14:31 Dose: 12.5 mls/hr Documented by: Sodium Chloride () 250 mls @ 15 mls/hr IV .[id number] PRN PRN Reason: Saline Flush Sodium Chloride () 250 mls @ 15 mls/hr IV .[id number] PRN PRN Reason: Additional IVPB Infusion Insulin Human Lispro (Humalog Kwikpen (Bkc)) 0 unit SC ACHS [facility]; Protocol Last Admin: 05/08/20 11:49 Dose: Not Given Documented by: Insulin Human Lispro (Humalog Kwikpen (Bkc)) 8 unit SC ACHS [facility] Last Admin: 05/08/20 11:50 Dose: 8 units Documented by: Loratadine (Claritin) 10 mg GT DAILY PRN PRN Reason: ALLEGY SYMPTOMS Montelukast Sodium (Singulair) 10 mg GT QHS [facility] Non-Formulary Medication (Nut.Tx.Impaired Digest Fxn [Neocate Rell]) 400 gm GT 4X/DAY [facility] Non-Formulary Medication (Phenazopyridine Hcl [Pyridium]) 200 mg GT TID PRN PRN Reason: UTI Oxcarbazepine (Oxcarbazepine) 480 mg GT BID@0800,2000 [facility] Sodium Chloride () 10 - 40 ml IV UD PRN PRN Reason: SALINE FLUSH Last Admin: 05/08/20 14:31 Dose: 10 ml Documented by: OBSV E&M: [id number] Observation care discharge
--- NOTE | 2020-05-08 14:44 | CON.PCM_ITS ---
Reason for Consult: Positive sputum culture concern for pneumonia Consulted by: Dr. Miranda History of Present Illness: The patient is a 30 year old F [] This is a 30-year-old white female with cerebral palsy and seizure disorder who resides with her parents, patient has chronic respiratory failure status post tracheostomy and has been on a ventilator for the past 10 years. More recently there is been times where the secretions have increased and a recent sputum culture grew multiple pathogens. History is obtained through talking to the patient's mother at the bedside. Patient has not had fever. Her oxygen requirements have not changed. Patient does have a history of C. difficile infections in the past. Her admission chest x-ray showed no active disease. Patient was placed empirically on Zosyn. - Medical History Past Medical History (Chronic Problems): Chronic Problems (Last Reviewed 01/17/20 @ 10:15 by Dory Victor NP-C) Allergic rhinitis (Chronic) Chronic respiratory failure (Chronic) Current LTV A/C 14, 240 mL PS 8 with 3 LPM, transition to Trilogy TV 240 with starting low pressures of 5 Cerebral palsy (Chronic) Seizure (Chronic) Allergies/Adverse Reactions: Allergies linezolid Allergy (Severe, Verified 01/17/20 09:49) Other - seizure & coma vancomycin Allergy (Severe, Verified 01/17/20 09:49) Other - kidney failure tobramycin Allergy (Intermediate, Verified 01/17/20 09:49) Other - turned beet red nafcillin Allergy (Mild, Verified 01/17/20 09:49) Rash benzoin Allergy (Unknown, Verified 01/17/20 09:49) Rash milk Allergy (Unknown, Verified 01/17/20 09:49) Other PER ALLERGY TESTING soy Allergy (Unknown, Verified 01/17/20 09:49) Other POSTIVE DURING ALLERGY TESTING. polyethylene glycol 3350 [From Miralax] Adverse Reaction (Unknown, Verified 01/17/20 09:49) Hives Home Medications: Ambulatory Orders Medication Instructions Recorded Baclofen [Lioresal] 30 mg GT TID 09/02/13 diazepam 5 mg/mL oral concentrate 7 mg PO BID ml 08/28/17 diazepam 5 mg/mL oral concentrate 9 mg PO QHS ml 08/28/17 oxcarbazepine 300 mg/5 mL (60 480 mg PO BID ml 08/28/17 mg/mL) oral suspension flash glucose scanning reader See Rx Instructions .ROUTE 08/18/19 .MEDSUPPLY #1 ea flash glucose sensor See Rx Instructions .ROUTE 08/18/19 .MEDSUPPLY #2 ea Phenazopyridine HCl [Pyridium] 200 mg GT TID PRN 11/24/19 cetirizine 1 mg/mL oral solution 10 mg PO QDAY PRN #480 ml 01/17/20 Insulin Aspart [Insulin Aspart See Rx Instructions SUBCUT .5 x qd 05/07/20 Flexpen] Levalbuterol HCl 1.25 mg INHALATION BID 05/07/20 Montelukast Sodium 10 mg PO QPM 05/07/20 Nut.tx.impaired Digest Fxn 112.5 gm GT 4X/DAY 05/07/20 [Neocate Rell] Vital Signs Temp Pulse Resp BP Pulse Ox 99.0 F 68 17 120/69 100 05/08/20 08:42 05/08/20 10:56 05/08/20 08:42 05/08/20 08:42 05/08/20 08:42 Oxygen Flow Rate (L/min) 3 Oxygen Delivery Method Mechanical Ventilator Weight: 48.58 kg Body Mass Index (BMI) 24.9 Patient with cerebral palsy unable to communicate. Tracheostomy is in place. Lungs are clear heart exam S1-S2 abdomen soft Microbiology Past 72 Hours 05/07/20 18:40 Streptococcus pneumoniae Antigen (M - Final Urine Catheter - Catheter 05/07/20 18:40 Legionella Antigen - Final Urine Catheter - Catheter Laboratory Tests Past 24 Hrs 05/07/20 05/07/20 05/07/20 17:44 17:44 17:44 WBC 8.4 RBC 4.00 L Hgb 12.9 Hct 38.0 MCV 95.0 MCH 32.3 H MCHC 33.9 RDW Std Deviation 39.3 RDW Coeff of Anne 11.4 L Plt Count 302 MPV 10.6 Immature Gran % (Auto) 0.400 Neut % (Auto) 65.3 Lymph % (Auto) 22.3 [place] % (Auto) 10.2 H Eos % (Auto) 1.4 Baso % (Auto) 0.4 Absolute Neuts (auto) 5.5 Absolute Lymphs (auto) 1.88 Nucleated RBC % 0 Sodium 140 Potassium 3.7 Chloride 105 Carbon Dioxide 31.0 Anion Gap 4 L BUN 5 L Creatinine 0.38 L Estim Creat Clear Calc 166.02 Est GFR (MDRD) Af Amer 257 Est GFR (MDRD) Non-Af 212 BUN/Creatinine Ratio 13.2 Glucose 87 Calcium 9.6 Total Bilirubin 0.20 AST 17 ALT 32 Alkaline Phosphatase 80 Troponin I < 0.015 Total Protein 8.0 Albumin 3.8 Globulin 4.2 Albumin/Globulin Ratio 0.9 COVID-19 ([facility]) 05/07/20 18:05 WBC RBC Hgb Hct MCV MCH MCHC RDW Std Deviation RDW Coeff of Anne Plt Count MPV Immature Gran % (Auto) Neut % (Auto) Lymph % (Auto) [place] % (Auto) Eos % (Auto) Baso % (Auto) Absolute Neuts (auto) Absolute Lymphs (auto) Nucleated RBC % Sodium Potassium Chloride Carbon Dioxide Anion Gap BUN Creatinine Estim Creat Clear Calc Est GFR (MDRD) Af Amer Est GFR (MDRD) Non-Af BUN/Creatinine Ratio Glucose Calcium Total Bilirubin AST ALT Alkaline Phosphatase Troponin I Total Protein Albumin Globulin Albumin/Globulin Ratio COVID-19 ([facility]AN) Negative - Other Studies Radiology: [] Other Studies: [] Route of nutrition/ use of supplements: [] Nutritional Intake: [] IV Site: [] Owens Catheter: [] - Assessment/Plan Antibiotics: [] Assessment/Plan: [] Active and Suspected Problems (Last Reviewed 01/17/20 @ 10:15 by Dory Victor, SHORTHAND REPORTER-C) Tracheobronchitis (Acute) Given the negative chest x-ray and normal white count and lack of fever I will hold off on antimicrobial therapy especially with her history of C. difficile infection. Okay to go home on no antibiotics with good pulmonary toilet.
--- NOTE | 2020-05-08 15:17 | PCA ---
Spoke with Magali at call center for [facility] and she stated that her roads supervisor gave the approval for us to set up transport with [facility] per family preference.
--- NOTE | 2020-05-08 19:10 | NURSING ---
Attempted to contact Rina, patient's mother regarding the C-diff results. No answer on cellphone [phone]. Message left for Rina to call the hospital at [phone] for update.
--- NOTE | 2020-05-08 19:24 | NURSING ---
Patient's mother Rina phones and is updated on C-diff results. Discussed that if toxin comes back positive, an antibiotic will be sent to the pharmacy. Reviewed allergies and previous medications patient has taken for C-diff. Per Rina, patient can take vancomycin. Dr. Miranda phones and is updated on same.
== END 2020-05-08 11:35 | disposition home or self-care (01) ==
LOC: PCU 05-08 07:11 → ICU 05-08 08:38 → PCU 05-08 09:27
PROVIDERS: Physician Assistant; Admitting Provider Internal Medicine; PCP Internal Medicine; Referring Provider Internal Medicine; Visit Provider Student in an Organized Health Care Education/Training Program
DX: J20.9 Acute bronchitis, unspecified (principal); J96.11 Chronic respiratory failure with hypoxia; G80.0 Spastic quadriplegic cerebral palsy; G40.909 Epilepsy, unspecified, not intractable, without status epilepticus; E11.9 Type 2 diabetes mellitus without complications; F70 Mild intellectual disabilities; M41.40 Neuromuscular scoliosis, site unspecified; Z86.14 Personal history of Methicillin resistant Staphylococcus aureus infection; Z79.899 Other long term (current) drug therapy; Z79.4 Long term (current) use of insulin; Z99.11 Dependence on respirator [ventilator] status; Z93.1 Gastrostomy status; Z93.0 Tracheostomy status
CPT/HCPCS: 36415; 71045; 80053; 82962; 84484; 85025; 87040; 87449; 87493; 87635; 93005; 94799; 96365; 96366; 96372; 97802; 99218; A4216; G0378; U0003

== ENCOUNTER → 2020-06-20 | Outpatient (CLI) | payer MEDICAID, SELFPAY ==
[2020-01-17 09:54] VITALS: BMI 34.7
[2020-05-08 12:11] VITALS: BMI 24.9
[2020-06-20 12:03] LABS: Bacteria 0 SEEN /hpf (None Seen); Squamous Epithelial Cells - UA 0 SEEN /hpf (5-10)
[2020-06-20 12:19] LABS: Color, Urine Yellow (Yellow); Glucose, Dipstick Normal (Normal); Ketone-Dipstick Negative (Negative); Leukocyte Esterase-Dipstick 500 /ul (Negative); Nitrite-Dipstick Positive (Negative); Occult Blood-Urine 25 /ul (Negative); Protein-Dipstick 30 mg/dl (Negative); Specific Gravity, Urine 1.015 (1.002-1.030); Urine Bilirubin Dipstick Negative (Negative); Urine Clarity Cloudy (Clear); Urine Urobilinogen 1 mg/dl (Normal)
[2020-06-20 12:58] LABS: Calcium Oxalate Crystals Ur 1+ /hpf (<or=2+); Hyaline Cast 0-5 SEEN /lpf (0-5); Mucous, Urine 3+ /hpf (<or=2+); Red Blood Cells-Urine 0-5 SEEN /hpf (0-5); White Blood Cells 50-100 SEEN /hpf (0-5)
== END | disposition home or self-care (01) ==
PROVIDERS: PCP Internal Medicine; Visit Provider Internal Medicine
DX: R82.90 Unspecified abnormal findings in urine (principal)
CPT/HCPCS: 81001; 87077; 87086; 87088; 87186

== ENCOUNTER → 2020-09-30 04:29 | Outpatient (CLI) | payer MEDICAID, SELFPAY ==
[2020-09-30 10:48] LABS: Absolute Neutrophil Count 6.6 X10^3/uL (2.0-7.7); Basophil# 0.05 X10^3/uL; Basophil% 0.5 % (0-1); Eosinophil# 0.14 X10^3/uL; Eosinophils% 1.5 % (0-5); Hematocrit 34.4 % (37-47); Hemoglobin 11.3 g/dL (12.0-15.0); Lymphocyte % 20.3 % (19-41); Mean Corp Hgb Conc 32.8 g/dL (32-36); Mean Corpuscular Hgb 31.6 pg (27.0-32.0); Mean Corpuscular Volume 96.1 fL (81-99); Mean Platelet Vol. 9.6 fl (6.2-12.0); Monocyte# 0.42 X10^3/uL; Monocyte% 4.5 % (0-10); NRBC Flagged by Analyzer 0 % (0-5); Neutrophil # 6.59 X10^3/uL (2.7-7.7); Neutrophil % 70.4 % (47-70); Platelet Count 414 K/mm3 (150-450); RBC Distribution Width CV 12.3 % (11.6-14.6); RBC Distribution Width SD 42.7 fl (35.1-43.9); Red Blood Count 3.58 M/mm3 (4.2-5.4); White Blood Count 9.4 K/mm3 (4.4-11.0)
[2020-09-30 11:40] LABS: Vitamin D,25 Hydroxy 38.6 ng/mL
[2020-09-30 11:46] LABS: Albumin, Serum 3.7 g/dL (3.2-5.0); BUN 7 mg/dL (7-18); BUN/Creat Ratio 13.6 RATIO (10-20); Calcium,Total 10.2 mg/dL (8.5-10.1); Chloride 99 mmol/L (98-107); Creatinine, Serum 0.51 mg/dL (0.55-1.02); EST Glomerular Filtration Rate 149 mL/min (>60); Est Glom Filt Rate - Afr Amer 180 mL/min (>60); Glucose 136 mg/dL (74-106); Phosphorus 3.6 mg/dL (2.5-4.9); Sodium Level 136 mmol/L (136-145); Thyroid Stim Hormone (TSH) 1.37 uIU/mL (0.358-3.74)
[2020-10-02 08:58] LABS: Trileptal-Oxcarbazepine 22 ug/mL (10-35)
== END ==
PROVIDERS: PCP Internal Medicine; Referring Provider Internal Medicine; Visit Provider Internal Medicine
DX: E55.9 Vitamin D deficiency, unspecified (principal); E11.9 Type 2 diabetes mellitus without complications; Z13.220 Encounter for screening for lipoid disorders
CPT/HCPCS: 36415; 80069; 82306; 82542; 84443; 85025

== ENCOUNTER → 2020-10-04 05:24 | Outpatient (REF) | payer MEDICAID, SELFPAY ==
[2020-10-04 11:05] LABS: Hematocrit 35.5 % (37-47); Hemoglobin 11.8 g/dL (12.0-15.0); Mean Corp Hgb Conc 33.2 g/dL (32-36); Mean Corpuscular Hgb 31.8 pg (27.0-32.0); Mean Corpuscular Volume 95.7 fL (81-99); Mean Platelet Vol. 9.7 fl (6.2-12.0); Platelet Count 395 K/mm3 (150-450); RBC Distribution Width CV 12.8 % (11.6-14.6); RBC Distribution Width SD 43.7 fl (35.1-43.9); RET-HE 35.7 pg (30-35); Red Blood Count 3.71 M/mm3 (4.2-5.4); Reticulocyte Count 3.27 % (0.5-1.5); White Blood Count 10.3 K/mm3 (4.4-11.0)
[2020-10-04 11:49] LABS: Vitamin B12 > 2000 pg/mL (211-911)
[2020-10-04 12:11] LABS: Ferritin 50 ng/mL (8-252); Iron 48 ug/dL (50-170); Iron Binding Capacity,Total 389 ug/dL (250-450); LDH 157 U/L (84-246)
[2020-10-07 20:07] LABS: Haptoglobin 229 mg/dL (33-278); PROEL- Alpha-1 Globulin 0.3 g/dL (0.0-0.4); PROEL- Alpha-2 Globulin 0.9 g/dL (0.4-1.0); PROEL- Beta Globulin 1.3 g/dL (0.7-1.3); PROEL- Gamma Globulin 1.4 g/dL (0.4-1.8)
[2020-10-07 20:43] LABS: Transferrin 320 mg/dL (192-364)
[2020-10-12 10:46] LABS: Methylmalonic Acid Bld 148
== END ==
LOC: LAB 05:24
PROVIDERS: PCP Internal Medicine; Referring Provider Internal Medicine; Visit Provider Internal Medicine
DX: D64.9 Anemia, unspecified (principal)
CPT/HCPCS: 36415; 82607; 82728; 82746; 83010; 83540; 83550; 83615; 83921; 84165; 84466; 85027; 85045; 86880

== ENCOUNTER → 2020-10-11 | Outpatient (CLI) | payer MEDICAID, SELFPAY ==
[2020-10-15 14:08] LABS: PROELU- Alpha-2-Globulin,Ur 16.1 % (.); PROELU- Beta Globulin, Ur 14.9 % (.); PROELU- Gamma Globulin, Ur 21.9 % (.); Total Protein, Ur 39.4 mg/dL (Not Estab.)
== END | disposition home or self-care (01) ==
LOC: LABSPEC 10:58
PROVIDERS: PCP Internal Medicine; Referring Provider Internal Medicine; Visit Provider Internal Medicine
DX: D64.9 Anemia, unspecified (principal)
CPT/HCPCS: 82274; 84166

== ENCOUNTER → 2020-10-18 07:54 | Outpatient (CLI) | payer MEDICAID, SELFPAY ==
[2020-10-18 10:04] LABS: Erythrocyte Sedimentation Rate 41 mm/hr (0-30)
[2020-10-18 10:25] LABS: CRP 5.62 mg/L (0.0-3.0)
[2020-10-22 20:08] LABS: Immunoglobulin A 205 mg/dL (87-352); Immunoglobulin G 1412 mg/dL (586-1602); Immunoglobulin M 168 mg/dL (26-217)
== END ==
PROVIDERS: PCP Internal Medicine; Referring Provider Internal Medicine; Visit Provider Internal Medicine
DX: R80.9 Proteinuria, unspecified (principal); S01.309A Unspecified open wound of unspecified ear, initial encounter
CPT/HCPCS: 82784; 85652; 86140; 86334; 86335

== ENCOUNTER 2020-10-23 19:23 | Inpatient (IN) | payer MEDICAID, SELFPAY ==
[2020-10-23] VITALS (11 sets, daily range): BP systolic 122–141; BP diastolic 81–90; PULSE 105–136; RESP 19–28; TEMP 36.4–36.9; O2SAT 98–100; BMI 24.6; BMI 23.8
--- NOTE | 2020-10-23 19:37 | EKG12_ITS ---
Test Reason : DYSRHYTHMIA Blood Pressure : / mmHG Vent. Rate : 106 BPM Atrial Rate : 106 BPM P-R Int : 118 ms QRS Dur : 086 ms QT Int : 318 ms P-R-T Axes : 014 -02 047 degrees QTc Int : 422 ms Sinus tachycardia Otherwise normal ECG Confirmed by SHANDRA LEIJA, DIEGO ([id number]), general expeditor KRYSTYNA ANDERSON ([id number]) on 10/25/2020 8:39:23 AM Referred By: KIM Confirmed By:PRIETO DEVI MD
--- NOTE | 2020-10-23 19:45 | ED.DCSUM_ITS ---
History of Present Illness Chief Complaint: General Illness Narrative: Patient is brought in by mother. She has severe cerebral palsy she has been on a ventilator for the past 17 years. Her normal status is that she lays on the bed with her head turned to the left. She has minimal movement of her arms no movement of her legs she is nonverbal. Over the past 2 or 3 days mother has noticed that there are increased secretions from the trach, increased work of breathing as well as a fever up to 102. No urinary symptoms, she straight caths Lesa sometimes but most of times she is just in the diaper. She appears to take excellent care of her, there have been no signs of cellulitis or decubitus ulcers. It is difficult to assess mental status but per mother no mental status changes. Past medical history: Cerebral palsy, on a ventilator, diabetes Medications: She is on multiple medications, she has paperwork from her PCP and I reviewed all her medications at the bedside. Social history: Lives at home, mother is primary classified advertising clerk Review of systems: Unable secondary to patient's nonverbal status Physical exam General: Cerebral palsy patient laying in bed does not appear in significant distress Head: No signs of trauma Eyes: Conjunctiva not pale, pupils are 3 mm and reactive ENT: Slightly dry mucous membranes Neck: Neck is turned to the left no obvious deformity otherwise Cardiovascular: Regular rhythm, tachycardic no obvious murmurs Respiratory: Coarse bilateral breath sounds with right upper rhonchi Abdomen: Soft, Nontender, Nondistended. Gastric tube intact : Diapers present otherwise normal external genitalia Back: No ulcers Extremities: Severe atrophy basically no movement Skin: No signs of cellulitis Neurological: Patient responds to questions, she moves her upper lip for no and smiles for yes otherwise no movement in the lower extremities and minimal movement in the upper extremities. Past Medical History - Allergies and Home Meds Allergies/Adverse Reactions: Allergies linezolid Allergy (Severe, Verified 10/23/20 19:30) Other - seizure & coma vancomycin Allergy (Severe, Verified 10/23/20 19:30) Other - kidney failure tobramycin Allergy (Intermediate, Verified 10/23/20 19:30) Other - turned beet red nafcillin Allergy (Mild, Verified 10/23/20 19:30) Rash benzoin Allergy (Unknown, Verified 10/23/20 19:30) Rash milk Allergy (Unknown, Verified 10/23/20 19:30) Other PER ALLERGY TESTING soy Allergy (Unknown, Verified 10/23/20 19:30) Other POSTIVE DURING ALLERGY TESTING. polyethylene glycol 3350 [From Miralax] Adverse Reaction (Unknown, Verified 10/23/20 19:30) Hives Primary Care Physician: Sandra Bermudez DO [Primary Care Provider] - Surgical History: - Smoking Status: Never smoker - Family History Maternal Family History: Reports: No pertinent history, - - unknown to do pt being adopted. Paternal Family History: Reports: No pertinent history, - - unknown to do pt being adopted. Physical Exam Vital Signs/Narrative: Vital Signs Temp Pulse Resp BP Pulse Ox 10/23/20 19:30 97.9 F 110 H 24 H 127/89 H 100 10/23/20 19:24 97.9 F 110 H 24 H 127/89 H 100 Diagnostic/Tx/Re-eval Chest X-Ray - ED: 1 View, Read by ED Physician, Read by Radiologist, - - Chronic change with poor inspiration I do not see an obvious pneumonia - Rhythm Strip Rhythm Strip: Sinus Rhythm Rate: 106 Ectopy: None - EKG Initial EKG Interpretation: - - Sinus rhythm with a rate of 106. Normal MA and QTc intervals. No ischemic changes. Interpreted by emergency doctor - Medical Decision Making Patient has leukocytosis slight lactic acidosis. She meets criteria for sepsis but she does not have septic shock. She does not have an obvious pneumonia on x-ray however due to her increased secretions work of breathing as well as fever I believe she likely has an underlying pneumonia, I will treat her as such I will admit her to the hospital for IV antibiotics and monitoring. - Critical Care Time Critical care time (excluding procedures): 30-74 minutes, Discussing w/Patient &/or Family/Complaint Inspector, Discussing w/Consultants ED Disposition - Plan for ED Patient: Disposition: Acute Care Hospital [facility] Diagnosis: Sepsis, Pneumonia Referrals: Sandra Bermudez DO [Primary Care Provider] -
[2020-10-23 20:00] LABS: Absolute Lymphocyte Count 0.61 X10^3/uL (0.83-4.51); Absolute Neutrophil Count 12.7 X10^3/uL (2.0-7.7); Basophil# 0.03 X10^3/uL; Basophil% 0.2 % (0-1); Eosinophil# 0.05 X10^3/uL; Eosinophils% 0.3 % (0-5); Hematocrit 31.1 % (37-47); Hemoglobin 10.9 g/dL (12.0-15.0); Lymphocyte # 0.61 X10^3/ul (4.0); Lymphocyte % 4.2 % (19-41); Mean Corpuscular Hgb 32.2 pg (27.0-32.0); Mean Platelet Vol. 10.1 fl (6.2-12.0); Monocyte# 1.04 X10^3/uL; Monocyte% 7.2 % (0-10); NRBC Flagged by Analyzer 0 % (0-5); Neutrophil # 12.67 X10^3/uL (2.7-7.7); Neutrophil % 87.6 % (47-70); Platelet Count 191 K/mm3 (150-450); RBC Distribution Width CV 12.9 % (11.6-14.6); RBC Distribution Width SD 43.2 fl (35.1-43.9); Red Blood Count 3.38 M/mm3 (4.2-5.4); White Blood Count 14.5 K/mm3 (4.4-11.0)
--- NOTE | 2020-10-23 20:05 | RAD_ITS ---
STUDY: X-RAY CHEST REASON FOR EXAM: Female, 30 years old. PER MOTHER, TRACH/VENTED PT C/O CHEST CONGESTION, FEVER, AND LEFT EAR INFECTION -- PATIENT HAS CEREBRAL PALSY TECHNIQUE: Single AP portable view of the chest. COMPARISON: May 07, 2020 FINDINGS: Stable tracheotomy. There is scoliotic curvature of the spine with angelo extending from the thoracic to the lumbar region. There is associated deformity of the thoracic cavity. The lungs are underexpanded with basilar atelectasis. There is no demonstrated pleural abnormality. Normal size heart. Normal mediastinum and glenn. Normal visualized pulmonary arteries. Normal visualized aortic arch and descending thoracic aorta. There is no demonstrated abnormality of the visualized soft tissue structures of the upper abdomen. RAD/Chest 1 View (Portable) IMPRESSION: Lungs are underexpanded with basilar atelectasis. Appearance is stable. Electronically Signed: Francisco Canada MD at 20:37 EST , Service support ,
[2020-10-23 20:17] LABS: ALB/GLOB Ratio 0.6 RATIO (0.9-2.4); AST(SGOT) 52 U/L (15-37); Alanine Aminotransfer ALT/SGPT 53 U/L (13-56); Alkaline Phosphatase 146 U/L (45-117); Anion Gap 7 (5-15); BUN 9 mg/dL (7-18); BUN/Creat Ratio 14.4 RATIO (10-20); Calcium,Total 9.5 mg/dL (8.5-10.1); Chloride 86 mmol/L (98-107); Creatinine, Serum 0.63 mg/dL (0.55-1.02); EST Glomerular Filtration Rate 118 mL/min (>60); Est Glom Filt Rate - Afr Amer 143 mL/min (>60); Estimated Creatinine Clearance 99.11 ml/min; Globulin 4.9 g/dL (2.2-4.2); Glucose 240 mg/dL (74-106); Potassium 3.7 mmol/L (3.5-5.1); Protein, Total 7.9 g/dL (6.4-8.2); Sodium Level 125 mmol/L (136-145)
[2020-10-23 20:25] LABS: Lactic Acid 2.8 mmol/L (0.4-1.9)
--- NOTE | 2020-10-23 21:38 | HP.PCM_ITS ---
History of Present Illness Date of Admission: 10/23/20 Chief Complaint: fever, increased secretions from tracheostomy The patient is a 30 year old F with a PMH as outlined who was admitted via the ED on 10/23/2020 with a complaitn of increased secretions and fever up to 103, as well as increased respirations. She is on a chronic vent from home due to chronic cerebral palsy with spasticity,a nd is cared for by her parents at home. Her mother noticed increased respiratory rate, increased secretions from her t kierra as well as a fever of up to 103. Review of systems otherwise negative. On admission, patient was tachycardic and tachypneic with pulse rate of 119 and respiratory rate of 24 as well as temperature of 98.3 Fahrenheit and blood pressure of 124/86. She was on 6 L of oxygen via Venturi which is chronic. Chemistry showed sodium of 125 and bicarb of 32. Lactic acid was 2.8. CBC showed WBC of 14.5 hemoglobin of 10.9. Lactic acid was 2.8. Chest x-ray showed underexpanded lungs with basilar atelectasis. She has been admitted to be managed for sepsis likely due to pneumonia. COVID-19 antigen test done was negative. [] Past Medical History Past Medical History (Chronic Problems): Chronic Problems (Last Reviewed 09/20/20 @ 18:[address] Sathish Messina MD) Diabetes (Chronic) Allergic rhinitis (Chronic) Chronic respiratory failure (Chronic) Current LTV A/C 14, 240 mL PS 8 with 3 LPM, transition to Trilogy TV 240 with starting low pressures of 5 Cerebral palsy (Chronic) Seizure (Chronic) Medical History: Medical History (Last Reviewed 09/20/20 @ 18:[address] Sathish Messina MD) Pneumonia (Resolved) J18.9 Cerebral palsy (Chronic) G80.9 Seizure (Chronic) R56.9 Severe sepsis (Resolved) A41.9, R65.20 C. 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 polyethylene glycol 3350 [From Miralax] Adverse Reaction (Unknown, Verified 10/23/20 19:30) Hives Home Medications: Ambulatory Orders Medication Instructions Recorded Baclofen [Lioresal] 30 mg GT TID 09/02/13 diazepam 5 mg/mL oral concentrate 5 mg PO LUNCH ml 08/28/17 diazepam 5 mg/mL oral concentrate 7 ml PO BID ml 08/28/17 oxcarbazepine 300 mg/5 mL (60 8 ml GT BID ml 08/28/17 mg/mL) oral suspension Phenazopyridine HCl [Pyridium] 200 mg GT TID PRN 11/24/19 cetirizine 1 mg/mL oral solution 10 mg PO QDAY PRN #480 ml 01/17/20 Levalbuterol HCl 1.25 mg INHALATION BID 05/07/20 Montelukast Sodium 10 mg GT QPM 05/07/20 Nut.tx.impaired Digest Fxn 112.5 gm GT 4X/DAY 05/07/20 [Neocate Rell] insulin aspart U-100 100 unit/mL 8 units SQ 5X/DAY 09/20/20 (3 mL) subcutaneous pen Guaifenesin 10 ml GT Q4H PRN PRN 10/23/20 Insulin Aspart [Novolog Flexpen See Protocol SC 5X/DAY 10/23/20 (BK)] Ketotifen Fumarate [Zaditor] 1 drp OP BID PRN PRN 10/23/20 L. Acidophilus/Pectin, Burke 1 ea GT DAILY 10/23/20 [Acidophilus Capsule] Levalbuterol HCl [Xopenex] 1.25 mg IH Q4H PRN PRN 10/23/20 Multivit/Folic Acid/Herbal 275 10 ml GT DAILY 10/23/20 [[place] Mult Vitamin Plus Liq] Mupirocin [Bactroban] 1 applic TOPICAL BID 10/23/20 Surgical History: Surgical History (Last Reviewed 09/20/20 @ 18:[address] Sathish Messina MD) Gastrostomy tube in place Z93.1 1999 Presence of intrathecal baclofen pump Z98.890 placed in 1998 & 2003 Tracheostomy status Z93.0 placed in 2002 rods to back placed - 2000; lengthened 2001 H/O spinal fusion Z98.1 2002 Status post Jorje fundoplication Z98.890 2002 derotatox ostomies 1992 eyes straightened 1992 surgery on gland under tongue 1992 tendonatomies 1990 Surgical History: - Psychiatric History: No pertinent psych hx STAMP PRESSER History: No pertinent STAMP PRESSER history Lives: With Family Smoking Status: Never smoker - *Family History Maternal History Items: No pertinent history, - - unknown to do pt being adopted. Paternal History Items: No pertinent history, - - unknown to do pt being adopted. Review of Systems Constitutional: Reports: Chills, Fever. Denies: Anorexia, Malaise, Weakness Eyes: Denies: Blurred vision HEENT: Denies: Head Aches, Sinus Congestion, Sinus Drainage Cardiovascular: Denies: Chest Pain, Palpitations Respiratory: Reports: Cough, Shortness of Breath, Shortness of breath at rest, Shortness of breath upon exertion, - - increased secretions from tracheostomy Gastrointestinal: Denies: Abdominal Pain, Nausea, Vomiting Genitourinary: Denies: Dysuria Musculoskeletal: Denies: Joint Pain, Joint Tenderness Skin: Denies: Rash, Wounds Neurological: Denies: Numbness, Tingling, Focal weakness Psychiatric: Denies: Anxiety, Depression, Homicidal Ideations, Suicidal Ideations Hematologic/ Lymphatic: Denies: Easy Bruising, Easy Bleeding VTE Information - Inpt Only VTE Present on Admission: No VTE Pharm Prophylaxis ordered?: Yes Patient Problems: Active and Suspected Problems (Last Reviewed 09/20/20 @ 18:[address] Sathish Messina MD) Sepsis (Acute) Pneumonia (Acute) - Physical Exam Vitals/I&O's: Vital Signs Temp Pulse Resp BP Pulse Ox 98.3 F 109 H 24 H 124/86 H 100 10/23/20 21:00 10/23/20 21:00 10/23/20 21:00 10/23/20 21:00 10/23/20 21:00 Oxygen Flow Rate (L/min) 6 Oxygen Delivery Method Trach Collar Weight: 106 lb Body Mass Index (BMI) 24.6 Intake and Output for Last 24 Hours 10/21/20 10/22/20 10/23/20 23:59 23:59 23:59 Intake Total 500 / 500 Balance 500 / 500 General: - - patient nonverbal, on chronic trach via vent HEENT: Atraumatic, PERRLA, EOMI, Normocephalic Oral: Dry Mucosa Neck: Supple, No JVD, Negative Carotid Bruits Lungs: - - diminished breath sound bibasally, on chronic home vent via tracheostomy. tachypneic Cardiovascular: Normal S1, Normal S2, No murmurs, Tachycardic Abdomen: Bowel Sounds Present, Soft, Non Tender, Non-Distended, No Hepato- splenomegaly, - - has a Benny Button PEG tube Extremities: No edema, Capillary Refill Less than 3 Seconds, - - contractures of lower extremities Skin: No rashes, No breakdown Musculoskeletal: No Tenderness to Palpation of Joints or Extremities Lymphatic: No Cervical, Supraclavicular, or Inguinal Adenopathy Neurological: - - cerebral palsy with spasticity Microbiology Past 72 Hours 10/23/20 19:45 Mucosa - Nasopharyngeal SARS-CoV-2 Antigen (Rapid) - Final Laboratory Results 10/23/20 19:43: WBC 14.5 H, RBC 3.38 L, Hgb 10.9 L, Hct 31.1 L, MCV 92.0, MCH 32.2 H, MCHC 35.0, RDW Std Deviation 43.2, RDW Coeff of Anne 12.9, Plt Count 191, MPV 10.1, Immature Gran % (Auto) 0.500, Neut % (Auto) 87.6 H, Lymph % (Auto) 4.2 L, [place] % (Auto) 7.2, Eos % (Auto) 0.3, Baso % (Auto) 0.2, Absolute Neuts (auto) 12.7 H, Absolute Lymphs (auto) 0.61 L, Nucleated RBC % 0 10/23/20 19:43: PT Cancelled, INR Cancelled, APTT Cancelled 10/23/20 19:43: Sodium 125 L, Potassium 3.7, Chloride 86 L, Carbon Dioxide 32.0, Anion Gap 7, BUN 9, Creatinine 0.63, Estim Creat Clear Calc 99.11, Est GFR (MDRD) Af Amer 143, Est GFR (MDRD) Non-Af 118, BUN/Creatinine Ratio 14.4, Glucose 240 H, Calcium 9.5, Total Bilirubin 0.50, AST 52 H, ALT 53, Alkaline Phosphatase 146 H, Total Protein 7.9, Albumin 3.0 L, Globulin 4.9 H, Albumin/Globulin Ratio 0.6 L 10/23/20 19:43: Lactic Acid 2.8 H* 10/23/20 21:25: PT Pending, INR Pending, APTT Pending Diagnostic Data Chest X-Ray 10/23/20 20:05 IMPRESSION: Lungs are underexpanded with basilar atelectasis. Appearance is stable. Electronically Signed: Francisco Caanda MD at 20:37 EST , Service support , Current Medications Azithromycin 500 mg/ Dextrose 255 mls @ 250 mls/hr IV X1 ONE Stop: 10/23/20 22:37 Ceftriaxone Sodium (Rocephin) 1 gm in 50 mls @ 100 mls/hr IV X1 ONE Stop: 10/23/20 22:05 Assessment/Plan All Active Problems (Last Reviewed 09/20/20 @ 18:[address] Sathish Messina MD) Tracheobronchitis (Acute) Sepsis (Acute) Pneumonia (Acute) Pneumonia (Resolved) Severe sepsis (Resolved) C. difficile diarrhea (Acute) 30 y/o with history of cerebral palsy and chronic respiratory failure, on vent via tracheostomy admitted with a complaint of fever and increased secretions from trach #SEvere sepsis due to community acquired pneumona * Admit to ICU * Hydrate gently with IV fluids * Blood cultures from sputum cultures * Check urinalysis and get urine culture as needed. * on IV ceftriaxone and azithromycin, will continue. has numerous medication allergies * Trend lactic acid. Covid antigen test done was negative. * SIRS criteria is 3 out of 4 with tachypnea, tachycardia and elevated white cell count. * #lactic acidosis: Hydrate with fluids and trend. * #Hyponatremia: * Sodium is 125. Does have a history of recurrent hyponatremia. * This likely due to dehydration. Hydrate with fluid and trend. * Check serum osmolality and urine sodium as well as urine osmolality. * #Chronic respiratory failure * Cerebral palsy. On vent via tracheostomy at home. * Consult pulmonology. * Breathing treatments with bronchodilators. * on home settings for vent * #Nutrition: On tube feeding via PEG tube. Prophylaxis: Lovenox # Code Status: DNRCCA- with intubation * Mother counseled about differences between full code, DNR CCA and DNR CCA. Mother opts for patient to be DNR CCA with intubation as she is on a chronic vent. Inpatient E&M: 42623 Init Hosp L3 Procedures: 29221 Advncd Care Plan 30 Min
[2020-10-23 21:47] LABS: International Normalized Ratio 1.2; Prothrombin Time (Protime)PT. 14.8 SECONDS (11.7-14.9)
[2020-10-23] MEDS: Ceftriaxone 1 GM/50 ML BAG IV (21:48)
[2020-10-23 21:49] LABS: Partial Thromboplast Time 34.5 Seconds (24.1-36.2)
[2020-10-23 21:54] LABS: Mucous, Urine 0 SEEN /hpf (<or=2+)
[2020-10-23 22:10] LABS: Color, Urine Yellow (Yellow); Glucose, Dipstick 250 mg/dl (Normal); Ketone-Dipstick Negative (Negative); Leukocyte Esterase-Dipstick 500 /ul (Negative); Nitrite-Dipstick Negative (Negative); Occult Blood-Urine 250 /ul (Negative); Protein-Dipstick 30 mg/dl (Negative); Urine Bilirubin Dipstick Negative (Negative); Urine Clarity Sl. Cloudy (Clear); Urine Urobilinogen 1 mg/dl (Normal)
[2020-10-23 22:20] LABS: Amorphous Sediment 1+ PHOS; Bacteria 1+ /hpf (None Seen); Red Blood Cells-Urine 25-50 SEEN /hpf (0-5); Squamous Epithelial Cells - UA 0-5 SEEN /hpf (5-10); White Blood Cells 50-100 SEEN /hpf (0-5)
--- NOTE | 2020-10-23 22:50 | PCS.PANDOC ---
PANDEMIC DOCUMENTATION INITIATED: Date: 10/23/20 Time: 1669
--- NOTE | 2020-10-23 23:00 | CPS ---
Pt currently on Home Ventilator and monitored by her mother.
--- NOTE | 2020-10-23 23:00 | CPS ---
Suctioned pt. with 10 kenyan catheter, parents stated that to only suction to the 8 cm line on catheter due to blood vessel running horizontally in airway
[2020-10-23] MEDS: 0.9% Normal Saline 1,000 ML 750 ML IV (23:18)
[2020-10-23 23:53] LABS: Reflex Lactate? Y
[2020-10-24] VITALS (17 sets, daily range): BP systolic 103–144; BP diastolic 62–100; PULSE 85–145; RESP 14–36; TEMP 36.6–37; O2SAT 98–100; BMI 24.9
--- NOTE | 2020-10-24 00:29 | NURSING ---
No oral care to be done per mother and father. They stated that the patient bites too much for it. Father suctioning oral secretions with a suction catheter when needed.
[2020-10-24] MEDS: 0.9% Normal Saline 1,000 ML 750 ML IV (00:40)
[2020-10-24 00:56] LABS: Lactic Acid 2.2 mmol/L (0.4-1.9)
[2020-10-24] MEDS: 0.9% Normal Saline 1,000 ML 150 ML IV (01:26)
[2020-10-24 02:01] LABS: Bedside Glucose 145 mg/dL (70-110)
[2020-10-24 04:45] LABS: Absolute Lymphocyte Count 0.93 X10^3/uL (0.83-4.51); Absolute Neutrophil Count 7.4 X10^3/uL (2.0-7.7); Basophil# 0.01 X10^3/uL; Basophil% 0.1 % (0-1); Eosinophil# 0.03 X10^3/uL; Eosinophils% 0.3 % (0-5); Hematocrit 31.3 % (37-47); Hemoglobin 10.4 g/dL (12.0-15.0); Lymphocyte # 0.93 X10^3/ul (4.0); Lymphocyte % 9.7 % (19-41); Mean Corp Hgb Conc 33.2 g/dL (32-36); Mean Corpuscular Hgb 32.1 pg (27.0-32.0); Mean Corpuscular Volume 96.6 fL (81-99); Mean Platelet Vol. 10.4 fl (6.2-12.0); Monocyte% 11.5 % (0-10); NRBC Flagged by Analyzer 0 % (0-5); Neutrophil # 7.42 X10^3/uL (2.7-7.7); Neutrophil % 77.8 % (47-70); Platelet Count 165 K/mm3 (150-450); RBC Distribution Width CV 13.2 % (11.6-14.6); RBC Distribution Width SD 47.2 fl (35.1-43.9); Red Blood Count 3.24 M/mm3 (4.2-5.4); White Blood Count 9.6 K/mm3 (4.4-11.0)
[2020-10-24 05:01] LABS: Anion Gap 6 (5-15); BUN 4 mg/dL (7-18); BUN/Creat Ratio 11.8 RATIO (10-20); Calcium,Total 8.5 mg/dL (8.5-10.1); Chloride 101 mmol/L (98-107); Creatinine, Serum 0.34 mg/dL (0.55-1.02); EST Glomerular Filtration Rate 239 mL/min (>60); Est Glom Filt Rate - Afr Amer 290 mL/min (>60); Glucose 119 mg/dL (74-106); Potassium 3.5 mmol/L (3.5-5.1); Sodium Level 135 mmol/L (136-145)
[2020-10-24 06:00] LABS: Bedside Glucose 124 mg/dL (70-110)
--- NOTE | 2020-10-24 06:18 | CON.PCM_ITS ---
Reason for Consult Date of Consultation: 10/24/20 Reason for Consultation: Severe sepsis, chronic respiratory failure History of Present Illness: The patient is a 30-year-old female, with a history as outlined below, who presented to the emergency department on October 23 with a subjective fever. The patient does have baseline cerebral palsy and a chronic home ventilator requirement. The patient was last seen by Dr. Weiner in the pulmonary medicine clinic in July 2019. History pertinent to the patient's hospitalization was obtained from her father at the bedside. He reported to me that there was no increase or change in her secretion production. However, they did note some rattling in her chest. She also had a subjective fever at home. They contacted their PCP provider who recommended that she come in for a chest x-ray. On presentation to the emergency department, the patient was noted to be afebrile but was tachycardic and tachypneic. She was maintaining appropriate oxygen saturations on her home trilogy requirement. Laboratory evaluation revealed an elevated white blood cell count to 14,000. Coagulation profile was within normal limits. Chemistry profile revealed a sodium of 125 and chloride of 86. Lactate was elevated to 2.8. Urinalysis was notable for leukocyte esterase, 50-100 white blood cells and 1+ urine bacteria. Chest x-ray revealed hypoinflated lung martinez bilaterally. The patient received supplemental IV fluid hydration and was placed on antimicrobials. She was subsequently admitted to the medical intensive care unit. Of note, the patient has grown out a multitude of different pathogens from prior sputum cultures including Serratia, Acinetobacter, Pseudomonas and staph aureus. Past Medical History Past Medical History (Chronic Problems): Chronic Problems (Last Reviewed 09/20/20 @ 18:[address] Sathish Messina MD) Diabetes (Chronic) Allergic rhinitis (Chronic) Chronic respiratory failure (Chronic) Current LTV A/C 14, 240 mL PS 8 with 3 LPM, transition to Trilogy TV 240 with starting low pressures of 5 Cerebral palsy (Chronic) Seizure (Chronic) Medical History: Medical History (Last Reviewed 09/20/20 @ 18:[address] Sathish Messina MD) Pneumonia (Resolved) J18.9 Cerebral palsy (Chronic) G80.9 Seizure (Chronic) R56.9 Severe sepsis (Resolved) A41.9, R65.20 C. 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 polyethylene glycol 3350 [From Miralax] Adverse Reaction (Unknown, Verified 10/23/20 19:30) Hives Home Medications: Ambulatory Orders Medication Instructions Recorded Baclofen [Lioresal] 30 mg GT TID 09/02/13 diazepam 5 mg/mL oral concentrate 5 mg PO LUNCH ml 08/28/17 diazepam 5 mg/mL oral concentrate 7 ml PO BID ml 08/28/17 oxcarbazepine 300 mg/5 mL (60 8 ml GT BID ml 08/28/17 mg/mL) oral suspension Phenazopyridine HCl [Pyridium] 200 mg GT TID PRN 11/24/19 cetirizine 1 mg/mL oral solution 10 mg PO QDAY PRN #480 ml 01/17/20 Levalbuterol HCl 1.25 mg INHALATION BID 05/07/20 Montelukast Sodium 10 mg GT QPM 05/07/20 Nut.tx.impaired Digest Fxn 112.5 gm GT 4X/DAY 05/07/20 [Neocate Rell] insulin aspart U-100 100 unit/mL 8 units SQ 5X/DAY 09/20/20 (3 mL) subcutaneous pen Guaifenesin 10 ml GT Q4H PRN PRN 10/23/20 Insulin Aspart [Novolog Flexpen] See Protocol SC 5X/DAY 10/23/20 Ketotifen Fumarate [Zaditor] 1 drp OP BID PRN PRN 10/23/20 Levalbuterol HCl [Xopenex] 1.25 mg IH Q4H PRN PRN 10/23/20 Multivit/Folic Acid/Herbal 275 10 ml GT DAILY 10/23/20 [[place] Mult Vitamin Plus Liq] Mupirocin [Bactroban] 1 applic TOPICAL BID 10/23/20 Lactobacillus Acidophilus 1 tab GT TID #90 tab 10/24/20 [Acidophilus] levoFLOXacin tablet [Levaquin 750 mg GT DAILY #6 tab 10/24/20 tablet] Surgical History: Surgical History (Last Reviewed 09/20/20 @ 18:[address] 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 Paternal History Items: No pertinent history, - - unknown to do pt being adopted. Review of Systems Unable to obtain accurate/complete ROS d/t: Due to baseline neurological status/cerebral palsy Patient Problems: Active and Suspected Problems (Last Reviewed 09/20/20 @ 18:[address] Sathish Messina MD) Sepsis (Acute) Pneumonia (Acute) Objective: The patient's most recent lab work, culture data and imaging studies have all been personally reviewed. Rapid coronavirus antigen testing was negative. Rapid influenza/RSV screen was negative. Blood and urine cultures are pending. - Physical Exam Vitals/I&O's: Vital Signs Temp Pulse Resp BP Pulse Ox 98.1 F 117 H 26 H 129/94 H 100 10/24/20 04:00 10/24/20 04:00 10/24/20 04:00 10/24/20 04:00 10/24/20 04:00 Oxygen Flow Rate (L/min) 6 Oxygen Delivery Method Mechanical Ventilator Weight: 107 lb 5.842 oz Body Mass Index (BMI) 23.8 Intake and Output for Last 24 Hours 10/22/20 10/23/20 10/24/20 23:59 23:59 23:59 Intake Total 550 / 550 1830 / 1830 Output Total 0 / 0 Balance 550 / 550 1830 / 1830 General: Alert, No apparent distress, - - Baseline neurological status. HEENT: Atraumatic, Normocephalic Oral: Moist Mucosa, - - Macroglossia present Neck: Supple, No Nodes, Trachea Midline Lungs: No rhonchi, No wheeze, No rales, Diminished Cardiovascular: Regular rate, Regular Rhythm Abdomen: Bowel Sounds Present, Soft, Non Tender Extremities: No clubbing, No cyanosis, - - Contracted extremities with spastic quadriplegia Skin: No breakdown Musculoskeletal: No Muscle Wasting Neurological: - - Baseline neurological status. Psych/Mental Status: Flat Affect Labs (Last 48 Hours) 10/23/20 10/23/20 10/23/20 19:43 19:43 19:43 WBC 14.5 H RBC 3.38 L Hgb 10.9 L Hct 31.1 L MCV 92.0 MCH 32.2 H MCHC 35.0 RDW Std Deviation 43.2 RDW Coeff of Anne 12.9 Plt Count 191 MPV 10.1 Immature Gran % (Auto) 0.500 Neut % (Auto) 87.6 H Lymph % (Auto) 4.2 L [place] % (Auto) 7.2 Eos % (Auto) 0.3 Baso % (Auto) 0.2 Absolute Neuts (auto) 12.7 H Absolute Lymphs (auto) 0.61 L Nucleated RBC % 0 PT Cancelled INR Cancelled APTT Cancelled Sodium 125 L Potassium 3.7 Chloride 86 L Carbon Dioxide 32.0 Anion Gap 7 BUN 9 Creatinine 0.63 Estim Creat Clear Calc 99.11 Est GFR (MDRD) Af Amer 143 Est GFR (MDRD) Non-Af 118 BUN/Creatinine Ratio 14.4 Glucose 240 H Lactic Acid Calcium 9.5 Total Bilirubin 0.50 AST 52 H ALT 53 Alkaline Phosphatase 146 H Total Protein 7.9 Albumin 3.0 L Globulin 4.9 H Albumin/Globulin Ratio 0.6 L Urine Color Urine Clarity Urine pH Ur Specific [place] Urine Protein Urine Glucose (UA) Urine Ketones Urine Occult Blood Urine Nitrite Urine Bilirubin Urine Urobilinogen Ur Leukocyte Esterase Urine RBC Urine WBC Ur Squamous Epith Cells Amorphous Sediment Urine Bacteria Urine Mucus POC Glucose 10/23/20 10/23/20 10/23/20 19:43 21:25 21:31 WBC RBC Hgb Hct MCV MCH MCHC RDW Std Deviation RDW Coeff of Anne Plt Count MPV Immature Gran % (Auto) Neut % (Auto) Lymph % (Auto) [place] % (Auto) Eos % (Auto) Baso % (Auto) Absolute Neuts (auto) Absolute Lymphs (auto) Nucleated RBC % PT 14.8 INR 1.2 APTT 34.5 Sodium Potassium Chloride Carbon Dioxide Anion Gap BUN Creatinine Estim Creat Clear Calc Est GFR (MDRD) Af Amer Est GFR (MDRD) Non-Af BUN/Creatinine Ratio Glucose Lactic Acid 2.8 H* Calcium Total Bilirubin AST ALT Alkaline Phosphatase Total Protein Albumin Globulin Albumin/Globulin Ratio Urine Color Yellow Urine Clarity Sl. Cloudy Urine pH 7.0 Ur Specific [place] 1.010 Urine Protein 30 H Urine Glucose (UA) 250 H Urine Ketones Negative Urine Occult Blood 250 H Urine Nitrite Negative Urine Bilirubin Negative Urine Urobilinogen 1 H Ur Leukocyte Esterase 500 H Urine RBC 25-50 SEEN Urine WBC 50-100 SEEN Ur Squamous Epith Cells 0-5 SEEN Amorphous Sediment 1+ PHOS Urine Bacteria 1+ Urine Mucus 0 SEEN POC Glucose 10/24/20 10/24/20 10/24/20 00:15 01:28 04:30 WBC 9.6 RBC 3.24 L Hgb 10.4 L Hct 31.3 L MCV 96.6 MCH 32.1 H MCHC 33.2 D RDW Std Deviation 47.2 H RDW Coeff of Anne 13.2 Plt Count 165 MPV 10.4 Immature Gran % (Auto) 0.600 Neut % (Auto) 77.8 H Lymph % (Auto) 9.7 L [place] % (Auto) 11.5 H Eos % (Auto) 0.3 Baso % (Auto) 0.1 Absolute Neuts (auto) 7.4 Absolute Lymphs (auto) 0.93 Nucleated RBC % 0 PT INR APTT Sodium Potassium Chloride Carbon Dioxide Anion Gap BUN Creatinine Estim Creat Clear Calc Est GFR (MDRD) Af Amer Est GFR (MDRD) Non-Af BUN/Creatinine Ratio Glucose Lactic Acid 2.2 H* Calcium Total Bilirubin AST ALT Alkaline Phosphatase Total Protein Albumin Globulin Albumin/Globulin Ratio Urine Color Urine Clarity Urine pH Ur Specific [place] Urine Protein Urine Glucose (UA) Urine Ketones Urine Occult Blood Urine Nitrite Urine Bilirubin Urine Urobilinogen Ur Leukocyte Esterase Urine RBC Urine WBC Ur Squamous Epith Cells Amorphous Sediment Urine Bacteria Urine Mucus POC Glucose 145 H 10/24/20 10/24/20 04:30 05:53 WBC RBC Hgb Hct MCV MCH MCHC RDW Std Deviation RDW Coeff of [place] Plt Count MPV Immature Gran % (Auto) Neut % (Auto) Lymph % (Auto) [place] % (Auto) Eos % (Auto) Baso % (Auto) Absolute Neuts (auto) Absolute Lymphs (auto) Nucleated RBC % PT INR APTT Sodium 135 L Potassium 3.5 Chloride 101 Carbon Dioxide 28.0 Anion Gap 6 BUN 4 L Creatinine 0.34 L Estim Creat Clear Calc 177.60 Est GFR (MDRD) Af Amer 290 Est GFR (MDRD) Non-Af 239 BUN/Creatinine Ratio 11.8 Glucose 119 H Lactic Acid Calcium 8.5 Total Bilirubin AST ALT Alkaline Phosphatase Total Protein Albumin Globulin Albumin/Globulin Ratio Urine Color Urine Clarity Urine pH Ur Specific [place] Urine Protein Urine Glucose (UA) Urine Ketones Urine Occult Blood Urine Nitrite Urine Bilirubin Urine Urobilinogen Ur Leukocyte Esterase Urine RBC Urine WBC Ur Squamous Epith Cells Amorphous Sediment Urine Bacteria Urine Mucus POC Glucose 124 H Microbiology 10/23/20 23:20 Mucosa - Nasopharyngeal - Final 10/23/20 19:45 Mucosa - Nasopharyngeal SARS-CoV-2 Antigen (Rapid) - Final Clinical Impression(s) from Imaging Studies Chest X-Ray 10/23/20 20:05 IMPRESSION: Lungs are underexpanded with basilar atelectasis. Appearance is stable. Electronically Signed: Francisco Canada MD at 20:37 EST , Service support , Current Medications Acetaminophen (Acetaminophen 650 Mg Suppository) 650 mg RC Q4H PRN PRN PRN Reason: Pain Score 1-10/Temp > 100.7 F Albuterol Sulfate (Albuterol 2.5 Mg/3 Ml Vial.Neb.) 2.5 mg INHALATION Q6HWA.RT BECKY Albuterol Sulfate (Albuterol 2.5 Mg/3 Ml Vial.Neb.) 2.5 mg INHALATION Q4H PRN PRN PRN Reason: SOB &/OR WHEEZING Baclofen (Baclofen 10 Mg Tablet) 30 mg GT 0800,1400,2000 [facility] Diazepam (Diazepam 2 Mg Tablet) 2 mg GT BID@0800,2000 [facility] Diazepam (Diazepam 5 Mg Tablet) 5 mg GT 0800,1400,2000 [facility] Enoxaparin Sodium (Enoxaparin 40 Mg/0.4 Ml Syringe) 40 mg SC DAILY [facility] Enteral Nutritional Formula (Nut.Tx.Impaired Digest Fxn 400 Gm Powder) 112.5 gm GT 0800,1100,1400,1700 [facility] Guaifenesin (Guaifenesin 10 Ml Udc (200mg/10ml)) 10 ml GT Q4H PRN PRN PRN Reason: thick secretions Sodium Chloride () 250 mls @ 15 mls/hr IV .[id number] PRN PRN Reason: Saline Flush Sodium Chloride () 250 mls @ 15 mls/hr IV .[id number] PRN PRN Reason: Additional IVPB Infusion Sodium Chloride () 1,000 mls @ 150 mls/hr IV .Q6H40M [facility] Stop: 10/24/20 12:23 Last Admin: 10/24/20 01:26 Dose: 150 mls/hr Documented by: Azithromycin 500 mg/ Dextrose 255 mls @ 250 mls/hr IV Q24H [facility] Ceftriaxone Sodium (Rocephin) 1 gm in 50 mls @ 100 mls/hr IV Q24H [facility] Insulin Human Lispro (Insulin Lispro 100 Unit/Ml Insuln.Pen) 8 unit SC 5X/DAY [facility] Insulin Human Lispro (Insulin Lispro 100 Unit/Ml Insuln.Pen) 0 unit SC Q4 BECKY; Protocol Last Admin: 10/24/20 01:28 Dose: Not Given Documented by: Lactobacillus Acidophilus (Lactobacillus Acidophilus) 1 tablet GT DAILYCM BECKY Loratadine (Loratadine 10 Mg Tablet) 10 mg GT DAILY PRN PRN PRN Reason: allergy symptoms Montelukast Sodium (Montelukast 10 Mg Tablet) 10 mg GT 2000 [facility] Mupirocin (Mupirocin Ointment 22gm Tube) 1 applic TOPICAL BID BECKY; Protocol Non-Formulary Medication (Ketotifen Fumarate [Zaditor]) 1 drp OP BID PRN PRN PRN Reason: itchy eyes Ondansetron HCl (Ondansetron 4 Mg/2 Ml Vial) 4 mg IV Q8H PRN PRN PRN Reason: NAUSEA/VOMITING Oxcarbazepine (Oxcarbazepine 300 Mg/5 Ml Syringe) 480 mg GT 0800,1999 BECKY Phenazopyridine HCl (Phenazopyridine 95 Mg Tablet) 190 mg PO TID PRN PRN PRN Reason: UTI Sodium Chloride (0.9% Saline Lock 10 Ml Syringe) 10 - 40 ml IV UD PRN PRN Reason: SALINE FLUSH Assessment/Plan Active and Suspected Problems (Last Reviewed 09/20/20 @ 18:[address] Sathish Messina MD) Sepsis (Acute) Pneumonia (Acute) RECOMMENDATIONS: 1. Transition from azithromycin and ceftriaxone to Levaquin to complete a 7-day treatment course. 2. Continue trilogy ventilator per home settings. 3. Okay to discontinue supplemental IV fluids. 4. Continue tube feeding per home regimen. 5. The patient can be made PCU status, given lack of ICU needs. IMPRESSIONS: 1. Severe sepsis secondary to possible tracheobronchitis/chronic respiratory failure The patient initially presented with subjective fevers, but her father has not noted any increase in her secretion production. She has been afebrile throughout her hospital course here. Her chest x-ray did not identify any definitive infiltrate or consolidation. The patient is maintaining appropriate oxygen saturations with her baseline ventilator requirement. Therefore, it is likely reasonable to transition the patient to Levaquin to complete a 7-day treatment course. Given her lack of increased oxygen demand and overall clinical stability, she can likely be safely discharged home to complete her treatment course. The patient can follow-up in the pulmonary medicine clinic 2 weeks after discharge. 2. Hyponatremia/hypochloremia Likely secondary to intravascular volume depletion. Electrolyte abnormalities have improved with fluid resuscitation. 3. History of spastic quadriplegia/cerebral palsy Complicates care, management, recovery and prognosis. Continue home medications as indicated. This note was generated with [employer] dictation software. It may contain incorrect words, spelling, and punctuation that were not noted in checking the note before signing. Inpatient E&M: [id number] Init Hosp L3
--- NOTE | 2020-10-24 07:13 | PN_ITS ---
Patient Problems: Active and Suspected Problems (Last Reviewed 09/20/20 @ 18:[address] Sathish Messina MD) Sepsis (Acute) Pneumonia (Acute) Vitals/I&O's: Vital Signs Temp Pulse Resp BP Pulse Ox 98.1 F 118 H 28 H 123/83 H 100 10/24/20 04:00 10/24/20 06:00 10/24/20 06:00 10/24/20 06:00 10/24/20 06:00 Oxygen Flow Rate (L/min) 6 Oxygen Delivery Method Mechanical Ventilator Weight: 107 lb 5.842 oz Body Mass Index (BMI) 23.8 Intake and Output for Last 24 Hours 10/22/20 10/23/20 10/24/20 23:59 23:59 23:59 Intake Total 550 / 550 1830 / 1830 Output Total 0 / 0 Balance 550 / 550 1830 / 1830 Microbiology Past 72 Hours 10/23/20 22:30 Mucosa - Nasopharyngeal Respiratory Panel (PCR) - Final 10/23/20 23:20 Mucosa - Nasopharyngeal - Final 10/23/20 19:45 Mucosa - Nasopharyngeal SARS-CoV-2 Antigen (Rapid) - Final Laboratory Results 10/23/20 19:43: WBC 14.5 H, RBC 3.38 L, Hgb 10.9 L, Hct 31.1 L, MCV 92.0, MCH 32.2 H, MCHC 35.0, RDW Std Deviation 43.2, RDW Coeff of Anne 12.9, Plt Count 191, MPV 10.1, Immature Gran % (Auto) 0.500, Neut % (Auto) 87.6 H, Lymph % (Auto) 4.2 L, [place] % (Auto) 7.2, Eos % (Auto) 0.3, Baso % (Auto) 0.2, Absolute Neuts (auto) 12.7 H, Absolute Lymphs (auto) 0.61 L, Nucleated RBC % 0 10/23/20 19:43: PT Cancelled, INR Cancelled, APTT Cancelled 10/23/20 19:43: Sodium 125 L, Potassium 3.7, Chloride 86 L, Carbon Dioxide 32.0, Anion Gap 7, BUN 9, Creatinine 0.63, Estim Creat Clear Calc 99.11, Est GFR (MDRD) Af Amer 143, Est GFR (MDRD) Non-Af 118, BUN/Creatinine Ratio 14.4, Glucose 240 H, Calcium 9.5, Total Bilirubin 0.50, AST 52 H, ALT 53, Alkaline Phosphatase 146 H, Total Protein 7.9, Albumin 3.0 L, Globulin 4.9 H, Albumin/Globulin Ratio 0.6 L 10/23/20 19:43: Lactic Acid 2.8 H* 10/23/20 21:25: PT 14.8, INR 1.2, APTT 34.5 10/23/20 21:31: Urine Color Yellow, Urine Clarity Sl. Cloudy, Urine pH 7.0, Ur Specific [place] 1.010, Urine Protein 30 H, Urine Glucose (UA) 250 H, Urine Ketones Negative, Urine Occult Blood 250 H, Urine Nitrite Negative, Urine Bilirubin Negative, Urine Urobilinogen 1 H, Ur Leukocyte Esterase 500 H, Urine RBC 25-50 SEEN, Urine WBC 50-100 SEEN, Ur Squamous Epith Cells 0-5 SEEN, Amorphous Sediment 1+ PHOS, Urine Bacteria 1+, Urine Mucus 0 SEEN 10/24/20 00:15: Lactic Acid 2.2 H* 10/24/20 01:28: POC Glucose 145 H 10/24/20 04:30: WBC 9.6, RBC 3.24 L, Hgb 10.4 L, Hct 31.3 L, MCV 96.6, MCH 32.1 H, MCHC 33.2 D, RDW Std Deviation 47.2 H, RDW Coeff of Anne 13.2, Plt Count 165, MPV 10.4, Immature Gran % (Auto) 0.600, Neut % (Auto) 77.8 H, Lymph % (Auto) 9.7 L, [place] % (Auto) 11.5 H, Eos % (Auto) 0.3, Baso % (Auto) 0.1, Absolute Neuts ( auto) 7.4, Absolute Lymphs (auto) 0.93, Nucleated RBC % 0 10/24/20 04:30: Sodium 135 L, Potassium 3.5, Chloride 101, Carbon Dioxide 28.0, Anion Gap 6, BUN 4 L, Creatinine 0.34 L, Estim Creat Clear Calc 177.60, Est GFR (MDRD) Af Amer 290, Est GFR (MDRD) Non-Af 239, BUN/Creatinine Ratio 11.8, Glucose 119 H, Calcium 8.5 10/24/20 05:53: POC Glucose 124 H Current Medications Acetaminophen (Acetaminophen 650 Mg Suppository) 650 mg RC Q4H PRN PRN PRN Reason: Pain Score 1-10/Temp > 100.7 F Albuterol Sulfate (Albuterol 2.5 Mg/3 Ml Vial.Neb.) 2.5 mg INHALATION Q6HWA.RT BECKY Albuterol Sulfate (Albuterol 2.5 Mg/3 Ml Vial.Neb.) 2.5 mg INHALATION Q4H PRN PRN PRN Reason: SOB &/OR WHEEZING Baclofen (Baclofen 10 Mg Tablet) 30 mg GT 0800,1400,2000 [facility] Diazepam (Diazepam 2 Mg Tablet) 2 mg GT BID@0800,2000 [facility] Diazepam (Diazepam 5 Mg Tablet) 5 mg GT 0800,1400,2000 [facility] Enoxaparin Sodium (Enoxaparin 40 Mg/0.4 Ml Syringe) 40 mg SC DAILY [facility] Enteral Nutritional Formula (Nut.Tx.Impaired Digest Fxn 400 Gm Powder) 112.5 gm GT 0800,1100,1400,1700 [facility] Guaifenesin (Guaifenesin 10 Ml Udc (200mg/10ml)) 10 ml GT Q4H PRN PRN PRN Reason: thick secretions Sodium Chloride () 250 mls @ 15 mls/hr IV .[id number] PRN PRN Reason: Saline Flush Sodium Chloride () 250 mls @ 15 mls/hr IV .[id number] PRN PRN Reason: Additional IVPB Infusion Sodium Chloride () 1,000 mls @ 150 mls/hr IV .Q6H40M [facility] Stop: 10/24/20 12:23 Last Admin: 10/24/20 01:26 Dose: 150 mls/hr Documented by: Azithromycin 500 mg/ Dextrose 255 mls @ 250 mls/hr IV Q24H [facility] Ceftriaxone Sodium (Rocephin) 1 gm in 50 mls @ 100 mls/hr IV Q24H [facility] Insulin Human Lispro (Insulin Lispro 100 Unit/Ml Insuln.Pen) 8 unit SC 5X/DAY [facility] Insulin Human Lispro (Insulin Lispro 100 Unit/Ml Insuln.Pen) 0 unit SC Q4 [facility]; Protocol Last Admin: 10/24/20 06:21 Dose: Not Given Documented by: Lactobacillus Acidophilus (Lactobacillus Acidophilus) 1 tablet GT DAILYCM BECKY Loratadine (Loratadine 10 Mg Tablet) 10 mg GT DAILY PRN PRN PRN Reason: allergy symptoms Montelukast Sodium (Montelukast 10 Mg Tablet) 10 mg GT 1999 [facility] Mupirocin (Mupirocin Ointment 22gm Tube) 1 applic TOPICAL BID BECKY; Protocol Non-Formulary Medication (Ketotifen Fumarate [Zaditor]) 1 drp OP BID PRN PRN PRN Reason: itchy eyes Ondansetron HCl (Ondansetron 4 Mg/2 Ml Vial) 4 mg IV Q8H PRN PRN PRN Reason: NAUSEA/VOMITING Oxcarbazepine (Oxcarbazepine 300 Mg/5 Ml Syringe) 480 mg GT 0800,1999 [facility] Phenazopyridine HCl (Phenazopyridine 95 Mg Tablet) 190 mg PO TID PRN PRN PRN Reason: UTI Sodium Chloride (0.9% Saline Lock 10 Ml Syringe) 10 - 40 ml IV UD PRN PRN Reason: SALINE FLUSH STROKE Vital Signs/Narrative: Vital Signs Temp Pulse Resp BP Pulse Ox 10/24/20 06:00 118 H 28 H 123/83 H 100 10/24/20 05:00 119 H 25 H 127/79 H 100 10/24/20 04:00 98.1 F 117 H 26 H 129/94 H 100 Medical Necessity - Tobacco Use Smoking Status: Never smoker Assessment/Plan All Active Problems (Last Reviewed 09/20/20 @ 18:[address] Sathish Messina MD) Tracheobronchitis (Acute) Sepsis (Acute) Pneumonia (Acute) Pneumonia (Resolved) Severe sepsis (Resolved) C. difficile diarrhea (Acute) The patient is a 30 y/o F w/ PMHx: Cerebral palsy with Spastic hemiplegia with Seizure disorder, Hx C-diff, Chronic Respiratory Failure with tracheostomy who presents to the [facility] ED on 10/23/20 with history of onset increased tracheal secretions, fever and increased RR prompting family to present to the ED. Acute severe sepsis secondary to Possible Complicated CAP, Hx Pseudomonas prior and Possible Complicated UTI: Work-up in the ED included CBC with WC 14.5, hemoglobin 10.9, platelet 191 with left shift with lymphopenia, unremarkable coags, CMP with sodium 125, chloride 86, glucose 240, lactic acid 2.8, urinalysis concerning appearing, urine culture pending per ED, blood culture pending per ED, negative respiratory panel, negative rapid Covid antigen, chest x-ray with bibasilar atelectasis stable from prior. Patient admitted to the ICU, ICU/Pulm consulted, admitted on rocephin and azithromycin; however, prior Sputum Cx with noted Serratia, actinobacter, Pseudomonas and Staphylococcus with varying sensitivities, most recent urine culture with Klebsiella with some and sensitivities and resistance patterns, Acute on chronic hyponatremia, likely hypovolemic: Admission sodium 125, history of previous hyponatremia, likely multifactorial, continue judicious hydration, urine sodium, creatinine and osmolality pending although likely primarily secondary to #1 especially given 10/24/2019 1 repeat CMP with sodium 135, continue to closely monitor especially given significant rise. Cerebral palsy with spastic hemiplegia with seizure disorder: Complicates prese ntation, we will continue patient oxcarbamazepine, diazepam and baclofen regimen, fall precautions, aspiration precautions, therapy consultations as needed, case management for discharge planning. History of C. difficile: Given presentation and usage of antibiotic therapy will continue patient acidophilus but will increase regimen, closely monitor for any diarrhea onset, C. difficile assay if onset.
[2020-10-24] MEDS: Albuterol 2.5 MG/3 ML VIAL.NEB. INHALATION (07:33)
--- NOTE | 2020-10-24 07:37 | CPS ---
3L bled into home vent
[2020-10-24] MEDS: NUT TX IMPAIRED DIGEST FXN 112.5 GM GT ×2 (08:15→11:04)
[2020-10-24] MEDS: Insulin Lispro 100 UNIT/ML INSULN.PEN 8 UNIT SC ×2 (08:17→11:11)
[2020-10-24] MEDS: Baclofen 10 MG Tablet 30 MG GT (08:36)
[2020-10-24 09:01] LABS: Bedside Glucose 103 mg/dL (70-110)
--- NOTE | 2020-10-24 09:36 | PCM.DC ---
- Discharge Diagnoses Current Active Problems: Current Active and Chronic Problems (Last Reviewed 09/20/20 @ 18:[address] Sathish Messina MD) SIRS with Lactic Acidosis, Unclear exact etiology, ? Complicated CAP w/ Hx Pseudomonas prior and/or Possible Complicated UTI versus colonization (Unclear organisms) with history of Bronchiectasis Acute on chronic hyponatremia, likely hypovolemic Cerebral palsy with spastic hemiplegia with seizure disorder with associated MRDD s/p spinal fusion with hardware, tracheostomy, GT, baclofen pump hx Diabetes mellitus type II History of C. difficile GERD s/p Jorje undoplication You will use the following diet at home:: Other - Continue home tube feed regimen per prior Nutritional recommendations. Discharge Activity: - - Encourage continued positional changes and offloading. Call your doctor if you observe: Fever of 101 or Higher, Inability to urinate, Inability to have a bowel movement, Shortness of breath, Dizziness, Chest pain, Uncontrolled pain Instructions: What Is Pneumonia?, Treating Pneumonia, Preventing Pneumonia, Understanding Urinary Tract Infections (UTIs) Additional Instructions: During the admission there was some concern of pulmonary infection; however, your secretions remained clear and your chest x-ray was not marked appearing. Your urine however did appear mildly concerning. Urine culture and blood cultures were sent. You were changed to Levaquin antibiotic therapy to cover for potentially both infections per Dr. Valenzuela, Pulmonary/ICU physician recommendation to complete total of 7 days of treatment and planned follow-up with your primary care in 3-5 days and Pulmonary in 1 week. Given your usage of antibiotics please temporarily increase your lactobacillus regimen to 1 tab three times daily until completed the antibiotics. Allergies/Adverse Reactions: Allergies linezolid Allergy (Severe, Verified 10/23/20 19:30) Other - seizure & coma vancomycin Allergy (Severe, Verified 10/23/20 19:30) Other - kidney failure tobramycin Allergy (Intermediate, Verified 10/23/20 19:30) Other - turned beet red nafcillin Allergy (Mild, Verified 10/23/20 19:30) Rash benzoin Allergy (Unknown, Verified 10/23/20 19:30) Rash milk Allergy (Unknown, Verified 10/23/20 19:30) Other PER ALLERGY TESTING soy Allergy (Unknown, Verified 10/23/20 19:30) Other POSTIVE DURING ALLERGY TESTING. polyethylene glycol 3350 [From Miralax] Adverse Reaction (Unknown, Verified 10/23/20 19:30) Hives Medications to take at Discharge Baclofen [Lioresal] 30 mg GT TID 09/02/13 diazepam 5 mg/mL oral concentrate 5 mg PO LUNCH ml 08/28/17 diazepam 5 mg/mL oral concentrate 7 ml PO BID ml 08/28/17 oxcarbazepine 300 mg/5 mL (60 mg/mL) oral suspension 8 ml GT BID ml 08/28/17 Phenazopyridine HCl [Pyridium] 200 mg GT TID PRN 11/24/19 cetirizine 1 mg/mL oral solution 10 mg PO QDAY PRN #480 ml 01/17/20 Levalbuterol HCl 1.25 mg INHALATION BID 05/07/20 Montelukast Sodium 10 mg GT QPM 05/07/20 Nut.tx.impaired Digest Fxn [Neocate Rell] 112.5 gm GT 4X/DAY 05/07/20 insulin aspart U-100 100 unit/mL (3 mL) subcutaneous pen 8 units SQ 5X/DAY 09/20/20 Guaifenesin 10 ml GT Q4H PRN PRN 10/23/20 Insulin Aspart [Novolog Flexpen] See Protocol SC 5X/DAY 10/23/20 Ketotifen Fumarate [Zaditor] 1 drp OP BID PRN PRN 10/23/20 Levalbuterol HCl [Xopenex] 1.25 mg IH Q4H PRN PRN 10/23/20 Multivit/Folic Acid/Herbal 275 [[place] Mult Vitamin Plus Liq] 10 ml GT DAILY 10/23/20 Mupirocin [Bactroban] 1 applic TOPICAL BID 10/23/20 Lactobacillus Acidophilus [Acidophilus] 1 tab GT TID #90 tab 10/24/20 levoFLOXacin tablet [Levaquin tablet] 750 mg GT DAILY #6 tab 10/24/20 The following prescriptions were given: Lactobacillus Acidophilus [Acidophilus] 1 tab GT TID #90 tab Transmission Status: Pending to [facility] levoFLOXacin tablet [Levaquin tablet] 750 mg GT DAILY #6 tab Transmission Status: Pending to [facility] Primary Care Physician: Sandra Bermudez DO [Primary Care Provider] - Please follow up with your Primary Care Physician in: Follow-up within 3-5 days to review admission. Test Results: Test results from this visit will be discussed in further detail at your follow-up appointment, if applicable. Please Follow Up With: Lawrence Weiner MD When: Please follow-up in 1-2 weeks, may see CLINICAL EXERCISE PHYSIOLOGIST. Proposed Discharge Date: 10/24/20
--- NOTE | 2020-10-24 09:43 | PCM.DC.SUM ---
Discharge Date and Diagnosis - Problem List Patient Problems: Active and Suspected Problems (Last Reviewed 09/20/20 @ 18:[address] Sathish Messina MD) Sepsis (Acute) Pneumonia (Acute) Date of Admission: 10/23/20 Date of Discharge: 10/24/20 - Primary Discharge Diagnosis Acute Problems: Active Problems (Last Reviewed 09/20/20 @ 18:[address] Sathish Messina MD) SIRS with Lactic Acidosis, Unclear exact etiology, ? Complicated CAP w/ Hx Pseudomonas prior and/or Possible Complicated UTI versus colonization (Unclear organisms) with history of Bronchiectasis Acute on chronic hyponatremia, likely hypovolemic Cerebral palsy with spastic hemiplegia with seizure disorder with associated MRDD s/p spinal fusion with hardware, tracheostomy, GT, baclofen pump hx Diabetes mellitus type II History of C. difficile GERD s/p Jorje undoplication - Secondary Discharge Diagnosis Chronic Problems: Chronic Problems (Last Reviewed 09/20/20 @ 18:[address] Sathish Messina MD) Diabetes (Chronic) Allergic rhinitis (Chronic) Chronic respiratory failure (Chronic) Current LTV A/C 14, 240 mL PS 8 with 3 LPM, transition to Trilogy TV 240 with starting low pressures of 5 Cerebral palsy (Chronic) Seizure (Chronic) Hospital Course and Treatment Dr. Valenzuela Pulmonary/ICU Operations: None Procedures: EKG Summary of Care Provided: The patient is a 30 y/o F w/ PMHx: Chronic hyponatremia, Diabetes mellitus type II, Hx C-difficile, GERD s/p Jorje fundoplication, Cerebral palsy with spastic hemiplegia with seizure disorder with associated MRDD s/p spinal fusion with hardware, tracheostomy, GT, baclofen pump hx who presented to the [facility] ED on10/24/20 with history of onset subjective fever with tachycardia and tachypnea although patient was noted to maintain appropriate oxygen saturations with her home trilogy on her chronic home ventilator settings with also noted increased oral and tracheal secretions noted to be clear prompting family to bring her to the ED. Work-up in the ED was notable for afebrile status although tachycardic and tachypneic, CBC with WC elevation 14, CMP with sodium 125, chloride 86, lactic acid 2.8, urinalysis with leukocyte esterase elevation, 500 100 WBCs and 1+ urine bacteria, chest x-ray with hypoinflated lungs bilaterally with no acute cardiopulmonary findings otherwise, rapid Covid antigen was negative. Patient admitted to the ICU, ICU/Pulm consulted, admitted on rocephin and azithromycin; however, prior Sputum Cx with noted Serratia, actinobacter, Pseudomonas and Staphylococcus with varying sensitivities, most recent urine culture with Klebsiella with some and sensitivities and resistance patterns therefore following admission paper reeler change antibiotic therapy to IV Levaquin. Admission sodium 125, history of previous hyponatremia, likely multifactorial, continued judicious hydration, urine sodium, creatinine and osmolality pending at discharge although likely primarily secondary to #1 especially given 10/24/2019 sodium 135. Given patient history of C. difficile with current usage antibiotic therapy patient's lactobacillus was increased temporarily. Per paper reeler/pulmonary critical care physician evaluation patient was stable and at baseline and family was very eager for her to discharge therefore patient discharged on 7 days of Levaquin antibiotic therapy with plan follow-up with her PCP within 3 to 5 days and follow-up with pulmonary medicine within 1 week. Family was very eager for her to return to home as patient was very anxious and did not have the trilogy component with a humidifier available to her in the hospital. Given patient's significant clinical improvement with correction of leukocytosis and left shift as well as improvement of sodium and resolution of lactic acidosis patient felt clinically appropriate for discharge to home with family and improved much quicker than clinically expected. DAY OF DISCHARGE PROGRESS NOTE: Subjective: Patient without acute event overnight per self and nursing report. Patient with no obvious evidence of fever, chills, nausea, emesis, abdominal pain, chest pain or dyspnea. Family present this morning and noted that patient has returned to her baseline. They do note that she is mildly tachycardic but she received her Valium significantly later than normal and her lower extremities were spasming. Father feels she is at her baseline and is eager for discharge especially as she does not have humidification option on her current trilogy. Front Office Clerk evaluation with recommendation for discharge on Levaquin therapy. Patient will be discharged with follow-up with primary care physician within 3-5 days in addition to pulmonary medicine within 1 week. Objective: T 98.1, heart 117, BP 129/94, respiratory rate 26, and a percent on 6 L flow rate mechanical trilogy. Physical Examination: General: awake, alert, nonverbal, interactive however, laying in the ICU bed, no acute distress currently but prior had significant lower extremity spasms, recently receiving Valium. Skin: normal color, turgor, no icterus, cyanosis. HEENT: AT/NC, EOMI, PERRLA, dry MM, previously noted significant oral and tracheal secretions per family currently not present. Lungs: Diminished breath sounds, greater bases, trach in place, secretions appear clear, trilogy in usage, no rales, ronchi or wheezing; Heart: Tachycardic with regular rhythm; no gallop, rub audible. Abdomen: soft, NTTP, GT, ND, moderately hyperactive BS. Extremities: no cyanosis, chronic lower extremity muscle wasting, contractures, cerebral palsy with spastic hemiplegia. Neurological: patient awake, alert, oriented as noted; cognitive function at baseline per discussion with family present; pupils equally reactive to light and accomodation; cranial nerves difficult to assess given cerebral palsy with spastic hemiplegia, unable to move extremities, strength chronically severely global decreased. Psychiatric: affect appears normal and at her baseline per family, interactive and smiling to questioning, no acute evidence of depressive or anxiety feelings. Assessment and Plan: Please see hospital summary above. Patient Problems: Active and Suspected Problems (Last Reviewed 09/20/20 @ 18:[address] Sathish Messina MD) Sepsis (Acute) Pneumonia (Acute) - Physical Exam Vitals/I&O's: Vital Signs Temp Pulse Resp BP Pulse Ox 98.1 F 124 H 27 H 123/83 H 100 10/24/20 04:00 10/24/20 07:37 10/24/20 07:37 10/24/20 06:00 10/24/20 07:37 Oxygen Flow Rate (L/min) 3 Oxygen Delivery Method Mechanical Ventilator Weight: 107 lb 5.842 oz Body Mass Index (BMI) 23.8 Intake and Output for Last 24 Hours 10/22/20 10/23/20 10/24/20 23:59 23:59 23:59 Intake Total 550 / 550 1830 / 1830 Output Total 0 / 0 Balance 550 / 550 1830 / 1830 Microbiology Past 72 Hours 10/23/20 22:30 Mucosa - Nasopharyngeal Respiratory Panel (PCR) - Final 10/23/20 23:20 Mucosa - Nasopharyngeal - Final 10/23/20 19:45 Mucosa - Nasopharyngeal SARS-CoV-2 Antigen (Rapid) - Final Laboratory Results 10/23/20 19:43: WBC 14.5 H, RBC 3.38 L, Hgb 10.9 L, Hct 31.1 L, MCV 92.0, MCH 32.2 H, MCHC 35.0, RDW Std Deviation 43.2, RDW Coeff of Anne 12.9, Plt Count 191, MPV 10.1, Immature Gran % (Auto) 0.500, Neut % (Auto) 87.6 H, Lymph % (Auto) 4.2 L, [place] % (Auto) 7.2, Eos % (Auto) 0.3, Baso % (Auto) 0.2, Absolute Neuts (auto) 12.7 H, Absolute Lymphs (auto) 0.61 L, Nucleated RBC % 0 10/23/20 19:43: PT Cancelled, INR Cancelled, APTT Cancelled 10/23/20 19:43: Sodium 125 L, Potassium 3.7, Chloride 86 L, Carbon Dioxide 32.0, Anion Gap 7, BUN 9, Creatinine 0.63, Estim Creat Clear Calc 99.11, Est GFR (MDRD) Af Amer 143, Est GFR (MDRD) Non-Af 118, BUN/Creatinine Ratio 14.4, Glucose 240 H, Calcium 9.5, Total Bilirubin 0.50, AST 52 H, ALT 53, Alkaline Phosphatase 146 H, Total Protein 7.9, Albumin 3.0 L, Globulin 4.9 H, Albumin/Globulin Ratio 0.6 L 10/23/20 19:43: Lactic Acid 2.8 H* 10/23/20 21:25: PT 14.8, INR 1.2, APTT 34.5 10/23/20 21:31: Urine Color Yellow, Urine Clarity Sl. Cloudy, Urine pH 7.0, Ur Specific [place] 1.010, Urine Protein 30 H, Urine Glucose (UA) 250 H, Urine Ketones Negative, Urine Occult Blood 250 H, Urine Nitrite Negative, Urine Bilirubin Negative, Urine Urobilinogen 1 H, Ur Leukocyte Esterase 500 H, Urine RBC 25-50 SEEN, Urine WBC 50-100 SEEN, Ur Squamous Epith Cells 0-5 SEEN, Amorphous Sediment 1+ PHOS, Urine Bacteria 1+, Urine Mucus 0 SEEN 10/24/20 00:15: Lactic Acid 2.2 H* 10/24/20 01:28: POC Glucose 145 H 10/24/20 04:30: WBC 9.6, RBC 3.24 L, Hgb 10.4 L, Hct 31.3 L, MCV 96.6, MCH 32.1 H, MCHC 33.2 D, RDW Std Deviation 47.2 H, RDW Coeff of Anne 13.2, Plt Count 165, MPV 10.4, Immature Gran % (Auto) 0.600, Neut % (Auto) 77.8 H, Lymph % (Auto) 9.7 L, [place] % (Auto) 11.5 H, Eos % (Auto) 0.3, Baso % (Auto) 0.1, Absolute Neuts (auto) 7.4, Absolute Lymphs (auto) 0.93, Nucleated RBC % 0 10/24/20 04:30: Sodium 135 L, Potassium 3.5, Chloride 101, Carbon Dioxide 28.0, Anion Gap 6, BUN 4 L, Creatinine 0.34 L, Estim Creat Clear Calc 177.60, Est GFR (MDRD) Af Amer 290, Est GFR (MDRD) Non-Af 239, BUN/Creatinine Ratio 11.8, Glucose 119 H, Calcium 8.5 10/24/20 05:53: POC Glucose 124 H 10/24/20 08:15: POC Glucose 103 Current Medications Acetaminophen (Acetaminophen 650 Mg Suppository) 650 mg RC Q4H PRN PRN PRN Reason: Pain Score 1-10/Temp > 100.7 F Albuterol Sulfate (Albuterol 2.5 Mg/3 Ml Vial.Neb.) 2.5 mg INHALATION Q6HWA.RT ON LICENSE OF [facility] Last Admin: 10/24/20 07:33 Dose: 2.5 mg Documented by: Albuterol Sulfate (Albuterol 2.5 Mg/3 Ml Vial.Neb.) 2.5 mg INHALATION Q4H PRN PRN PRN Reason: SOB &/OR WHEEZING Baclofen (Baclofen 10 Mg Tablet) 30 mg GT 0800,1400,2000 ON LICENSE OF [facility] Last Admin: 10/24/20 08:36 Dose: 30 mg Documented by: Diazepam (Diazepam 5 Mg/5 Ml Solution) 7 mg PO DAILY@0800 ON LICENSE OF [facility] Last Admin: 10/24/20 08:58 Dose: 7 mg Documented by: Diazepam (Diazepam 5 Mg/5 Ml Solution) 5 mg PO DAILY@1200 ON LICENSE OF [facility] Diazepam (Diazepam 5 Mg/5 Ml Solution) 9 mg PO DAILY@2000 ON LICENSE OF [facility] Enoxaparin Sodium (Enoxaparin 40 Mg/0.4 Ml Syringe) 40 mg SC DAILY ON LICENSE OF [facility] Enteral Nutritional Formula (Nut.Tx.Impaired Digest Fxn 400 Gm Powder) 112.5 gm GT 0800,1100,1400,1700 ON LICENSE OF [facility] Last Admin: 10/24/20 08:15 Dose: 112.5 gm Documented by: Guaifenesin (Guaifenesin 10 Ml Udc (200mg/10ml)) 10 ml GT Q4H PRN PRN PRN Reason: thick secretions Sodium Chloride () 250 mls @ 15 mls/hr IV .[id number] PRN PRN Reason: Saline Flush Sodium Chloride () 250 mls @ 15 mls/hr IV .[id number] PRN PRN Reason: Additional IVPB Infusion Levofloxacin (Levaquin Iv) 750 mg in 150 mls @ 100 mls/hr IV Q24 ON LICENSE OF [facility] Insulin Human Lispro (Insulin Lispro 100 Unit/Ml Insuln.Pen) 0 unit SC Q6 ON LICENSE OF [facility]; Protocol Insulin Human Lispro (Insulin Lispro 100 Unit/Ml Insuln.Pen) 8 unit SC 0800,1100,1400,1700,1999 ON LICENSE OF [facility] Last Admin: 10/24/20 08:17 Dose: 8 u Documented by: Lactobacillus Acidophilus (Lactobacillus Acidophilus) 1 tablet PO TID ON LICENSE OF [facility] Loratadine (Loratadine 10 Mg Tablet) 10 mg GT DAILY PRN PRN PRN Reason: allergy symptoms Montelukast Sodium (Montelukast 10 Mg Tablet) 10 mg GT 1999 ON LICENSE OF [facility] Mupirocin (Mupirocin Ointment 22gm Tube) 1 applic TOPICAL BID ON LICENSE OF [facility]; Protocol Non-Formulary Medication (Ketotifen Fumarate [Zaditor]) 1 drp OP BID PRN PRN PRN Reason: itchy eyes Ondansetron HCl (Ondansetron 4 Mg/2 Ml Vial) 4 mg IV Q8H PRN PRN PRN Reason: NAUSEA/VOMITING Oxcarbazepine (Oxcarbazepine 300 Mg/5 Ml Syringe) 480 mg GT 0800,1999 ON LICENSE OF [facility] Last Admin: 10/24/20 08:38 Dose: 480 mg Documented by: Phenazopyridine HCl (Phenazopyridine 95 Mg Tablet) 190 mg PO TID PRN PRN PRN Reason: UTI Sodium Chloride (0.9% Saline Lock 10 Ml Syringe) 10 - 40 ml IV UD PRN PRN Reason: SALINE FLUSH Discharge Activity: - - Encourage continued positional changes and offloading. Call your doctor if you observe: Fever of 101 or Higher, Inability to urinate, Inability to have a bowel movement, Shortness of breath, Dizziness, Chest pain, Uncontrolled pain Home Medications: Medications to take at Discharge Baclofen [Lioresal] 30 mg GT TID 09/02/13 diazepam 5 mg/mL oral concentrate 5 mg PO LUNCH ml 08/28/17 diazepam 5 mg/mL oral concentrate 7 ml PO BID ml 08/28/17 oxcarbazepine 300 mg/5 mL (60 mg/mL) oral suspension 8 ml GT BID ml 08/28/17 Phenazopyridine HCl [Pyridium] 200 mg GT TID PRN 11/24/19 cetirizine 1 mg/mL oral solution 10 mg PO QDAY PRN #480 ml 01/17/20 Levalbuterol HCl 1.25 mg INHALATION BID 05/07/20 Montelukast Sodium 10 mg GT QPM 05/07/20 Nut.tx.impaired Digest Fxn [Neocate Rell] 112.5 gm GT 4X/DAY 05/07/20 insulin aspart U-100 100 unit/mL (3 mL) subcutaneous pen 8 units SQ 5X/DAY 09/20/20 Guaifenesin 10 ml GT Q4H PRN PRN 10/23/20 Insulin Aspart [Novolog Flexpen] See Protocol SC 5X/DAY 10/23/20 Ketotifen Fumarate [Zaditor] 1 drp OP BID PRN PRN 10/23/20 Levalbuterol HCl [Xopenex] 1.25 mg IH Q4H PRN PRN 10/23/20 Multivit/Folic Acid/Herbal 275 [[place] Mult Vitamin Plus Liq] 10 ml GT DAILY 10/23/20 Mupirocin [Bactroban] 1 applic TOPICAL BID 10/23/20 Lactobacillus Acidophilus [Acidophilus] 1 tab GT TID #90 tab 10/24/20 levoFLOXacin tablet [Levaquin tablet] 750 mg GT DAILY #6 tab 10/24/20 Following Prescriptions Were Given to Patient: Lactobacillus Acidophilus [Acidophilus] 1 tab GT TID #90 tab Transmission Status: Received by [facility] levoFLOXacin tablet [Levaquin tablet] 750 mg GT DAILY #6 tab Transmission Status: Received by [facility] Primary Care Physician: Sandra Bermudez DO [Primary Care Provider] - Please follow up with your Primary Care Physician in: Follow-up within 3-5 days to review admission. Please Follow Up With: Lawrence Weiner MD When: Please follow-up in 1-2 weeks, may see MANAGER SPRING. Patient Instructions: What Is Pneumonia?, Preventing Pneumonia, Treating Pneumonia, Understanding Urinary Tract Infections (UTIs) Disposition: Home with Home Health Minutes spent on discharge:: 35 Patient Condition:: Fair Medical Necessity - Tobacco Use Smoking Status: Never smoker Meaningful Use Info Meaningful Use Diagnoses (Choose all that apply): None applicable Inpatient E&M: 19638 Disch Hosp
[2020-10-24] MEDS: levoFLOXacin IV 750 MG/150 ML BAG 100 MG IV (09:54)
--- NOTE | 2020-10-24 10:04 | NT.THERAPY_ITS ---
Nutrition Therapy Report - History Nutrition Services has been consulted to:: Manage enteral nutrition Current diet / nutrition support order:: NPO; Neocate Jr. 112.5 g 4x/day (0800, 1100, 1400, and 1700) - Anthropometric Measurements Height:: 4 ft 7 in Weight:: 48.7 kg Body Mass Index (BMI):: 24.9 - Relevant Labs Relevant Labs:: WBC 14.5 K/mm3 (4.4-11.0) H 10/23/20 19:43 RBC 3.24 M/mm3 (4.2-5.4) L 10/24/20 04:30 Hgb 10.4 g/dL (12.0-15.0) L 10/24/20 04:30 Hct 31.3 % (37-47) L 10/24/20 04:30 MCH 32.1 pg (27.0-32.0) H 10/24/20 04:30 RDW Std Deviation 47.2 fl (35.1-43.9) H 10/24/20 04:30 Neut % (Auto) 77.8 % (47-70) H 10/24/20 04:30 Lymph % (Auto) 9.7 % (19-41) L 10/24/20 04:30 [place] % (Auto) 11.5 % (0-10) H 10/24/20 04:30 Absolute Neuts (auto) 12.7 X10^3/uL (2.0-7.7) H 10/23/20 19:43 Absolute Lymphs (auto) 0.61 X10^3/uL (0.83-4.51) L 10/23/20 19:43 Sodium 135 mmol/L (136-145) L 10/24/20 04:30 Chloride 86 mmol/L (98-107) L 10/23/20 19:43 BUN 4 mg/dL (7-18) L 10/24/20 04:30 Creatinine 0.34 mg/dL (0.55-1.02) L 10/24/20 04:30 Glucose 119 mg/dL (74-106) H 10/24/20 04:30 Lactic Acid 2.2 mmol/L (0.4-1.9) H* 10/24/20 00:15 AST 52 U/L (15-37) H 10/23/20 19:43 Alkaline Phosphatase 146 U/L (45-117) H 10/23/20 19:43 Albumin 3.0 g/dL (3.2-5.0) L 10/23/20 19:43 Globulin 4.9 g/dL (2.2-4.2) H 10/23/20 19:43 Albumin/Globulin Ratio 0.6 RATIO (0.9-2.4) L 10/23/20 19:43 - Assessment Food / Nutrition-Related History:: Pt is non-verbal. Pt is familiar to this specification writer from previous admission, [facility] outpatient Nutrition Services. Father at bedside during assessment. Neocate Rell formula via PEG at home. 112.5 g power (3/4 c. + 3 T.) mixed in 300mL water 4x/day (at 0800, 1100, 1400, and 1700). 60mL H2O flush after each feed plus 150mL flush 4x/day in between feeds. It is estimated that tube feeds are providing 2155.5 calories, 66.6 g protein per day. Total fluid from formula/flushes is 2040mL/day (300mL water x4, 60mL flush x 4, 150mL flush x4). Has been tolerating nutrition support w/o issues per father. Unable to monitor wt at home but appears stable since last admission. - Nutrition Diagnosis Problem / Etiology / Signs & Symptoms (PES):: increased protein/calorie needs related to chronic resp. failure requiring mechanical ventilation as evidenced by daily calorie intake of 2155.5 required to maintain wt of 107# Evidence of Malnutrition Exists:: No - Nutrition Intervention Nutrition Prescription:: 9035-1917 calories/day, 58-68 g protein/day. Estimating pt's nutritional needs is difficult given ventilation requirements, CP, quadriplegia- would benefit from indirect calorimetry to best estimate energy requirements which is not available at [facility]. - Food / Nutrient Delivery Interventions Summary of nutrition intervention:: Pt to be discharged today. Family has adequate knowledge of enteral nutrition support management. Father aware family can call outpatient Nutrition Service w/ questions. Nutrition support ordered as / adjusted to:: Continue home enteral nutrition support as ordered - MNT Monitoring Further MNT monitoring and evaluation required?: Yes MNT Follow-up in:: 3-5 days
[2020-10-24] MEDS: Multivitamin/Minerals/Iron (9 mg/15 ml) Liquid GT (11:03)
[2020-10-24] MEDS: Insulin Lispro 100 UNIT/ML INSULN.PEN SC (11:12)
[2020-10-24 11:21] LABS: Bedside Glucose 223 mg/dL (70-110)
[2020-10-24] MEDS: Acetaminophen 650 MG/20 ML UDC GT (11:49)
--- NOTE | 2020-10-24 13:32 | CASEMGMT ---
RN CM Note Intro role of CM to patient's father. Pt will be discharged today. Father did not know which Home Care patient used, but did have number for nurse. Call to nurse estefania, updated that patient will be going home today. # given for main office . Spoke with Karlee who is RN in charge of this case. Updated that pt is returning home on po medications. H/P, DC instructions and Summary faxed to . PCP: Dr. Sandra Bermudez Insurance: [facility] Pharmacy: [facility] [employer] Living arrangements: patient lives with her parents who are caretakers for her. Transportation: ambulance-[facility] is choice of parents. DC PLAN: patient is discharged, HHC resumed through [facility] in [place]. Mariajose QUINONESN RN ACM
--- NOTE | 2020-10-24 16:08 | CON.PCM_ITS ---
Problem List (1) Sepsis Status: Acute Reason for Consult: sepsis Consulted by: Dr. Miranda History of Present Illness: The patient is a 30 year old F with cerebral palsy, on home vent via trach, has g-tube in place. Presented with several days fever, cough, some increased sputum. Denies dysuria. Came to ED, admitted on azithro/ceftriaxone, changed to levaquin this AM. Father at bedside, feels like pt starting to improve. No sick contacts, parents had covid around June, but she did not get sick. ROS unobtainable due to mental status. - Medical History Past Medical History (Chronic Problems): Chronic Problems (Last Reviewed 09/20/20 @ 18:[address] Sathish Messina MD) Diabetes (Chronic) Allergic rhinitis (Chronic) Chronic respiratory failure (Chronic) Current LTV A/C 14, 240 mL PS 8 with 3 LPM, transition to Trilogy TV 240 with starting low pressures of 5 Cerebral palsy (Chronic) Seizure (Chronic) Allergies/Adverse Reactions: Allergies linezolid Allergy (Severe, Verified 10/23/20 19:30) Other - seizure & coma vancomycin Allergy (Severe, Verified 10/23/20 19:30) Other - kidney failure tobramycin Allergy (Intermediate, Verified 10/23/20 19:30) Other - turned beet red nafcillin Allergy (Mild, Verified 10/23/20 19:30) Rash benzoin Allergy (Unknown, Verified 10/23/20 19:30) Rash milk Allergy (Unknown, Verified 10/23/20 19:30) Other PER ALLERGY TESTING soy Allergy (Unknown, Verified 10/23/20 19:30) Other POSTIVE DURING ALLERGY TESTING. polyethylene glycol 3350 [From Miralax] Adverse Reaction (Unknown, Verified 10/23/20 19:30) Hives Home Medications: Ambulatory Orders Medication Instructions Recorded Baclofen [Lioresal] 30 mg GT TID 09/02/13 diazepam 5 mg/mL oral concentrate 5 mg PO LUNCH ml 08/28/17 diazepam 5 mg/mL oral concentrate 7 ml PO BID ml 08/28/17 oxcarbazepine 300 mg/5 mL (60 8 ml GT BID ml 08/28/17 mg/mL) oral suspension Phenazopyridine HCl [Pyridium] 200 mg GT TID PRN 11/24/19 cetirizine 1 mg/mL oral solution 10 mg PO QDAY PRN #480 ml 01/17/20 Levalbuterol HCl 1.25 mg INHALATION BID 05/07/20 Montelukast Sodium 10 mg GT QPM 05/07/20 Nut.tx.impaired Digest Fxn 112.5 gm GT 4X/DAY 05/07/20 [Neocate Rell] insulin aspart U-100 100 unit/mL 8 units SQ 5X/DAY 09/20/20 (3 mL) subcutaneous pen Guaifenesin 10 ml GT Q4H PRN PRN 10/23/20 Insulin Aspart [Novolog Flexpen] See Protocol SC 5X/DAY 10/23/20 Ketotifen Fumarate [Zaditor] 1 drp OP BID PRN PRN 10/23/20 Levalbuterol HCl [Xopenex] 1.25 mg IH Q4H PRN PRN 10/23/20 Multivit/Folic Acid/Herbal 275 10 ml GT DAILY 10/23/20 [[place] Mult Vitamin Plus Liq] Mupirocin [Bactroban] 1 applic TOPICAL BID 10/23/20 Lactobacillus Acidophilus 1 tab GT TID #90 tab 10/24/20 [Acidophilus] levoFLOXacin tablet [Levaquin 750 mg GT DAILY #6 tab 10/24/20 tablet] - Social History Tobacco Use: non-smoker Vital Signs Temp Pulse Resp BP Pulse Ox 98.6 F 145 H 35 H 123/79 H 98 10/24/20 12:00 10/24/20 13:00 10/24/20 13:00 10/24/20 13:00 10/24/20 13:00 Oxygen Flow Rate (L/min) 3 Oxygen Delivery Method Mechanical Ventilator Weight: 48.7 kg Body Mass Index (BMI) 24.9 Microbiology Past 72 Hours 10/23/20 21:31 Urine Culture - Preliminary Urine, Catheterized Presumptive E. coli 10/23/20 22:30 Respiratory Panel (PCR) - Final Mucosa - Nasopharyngeal 10/23/20 23:20 - Final Mucosa - Nasopharyngeal 10/23/20 19:45 SARS-CoV-2 Antigen (Rapid) - Final Mucosa - Nasopharyngeal Laboratory Tests Past 24 Hrs 10/23/20 10/23/20 10/23/20 19:43 19:43 19:43 WBC 14.5 H RBC 3.38 L Hgb 10.9 L Hct 31.1 L MCV 92.0 MCH 32.2 H MCHC 35.0 RDW Std Deviation 43.2 RDW Coeff of Anne 12.9 Plt Count 191 MPV 10.1 Immature Gran % (Auto) 0.500 Neut % (Auto) 87.6 H Lymph % (Auto) 4.2 L [place] % (Auto) 7.2 Eos % (Auto) 0.3 Baso % (Auto) 0.2 Absolute Neuts (auto) 12.7 H Absolute Lymphs (auto) 0.61 L Nucleated RBC % 0 PT Cancelled INR Cancelled APTT Cancelled Sodium 125 L Potassium 3.7 Chloride 86 L Carbon Dioxide 32.0 Anion Gap 7 BUN 9 Creatinine 0.63 Estim Creat Clear Calc 99.11 Est GFR (MDRD) Af Amer 143 Est GFR (MDRD) Non-Af 118 BUN/Creatinine Ratio 14.4 Glucose 240 H Lactic Acid Calcium 9.5 Total Bilirubin 0.50 AST 52 H ALT 53 Alkaline Phosphatase 146 H Total Protein 7.9 Albumin 3.0 L Globulin 4.9 H Albumin/Globulin Ratio 0.6 L Urine Color Urine Clarity Urine pH Ur Specific [place] Urine Protein Urine Glucose (UA) Urine Ketones Urine Occult Blood Urine Nitrite Urine Bilirubin Urine Urobilinogen Ur Leukocyte Esterase Urine RBC Urine WBC Ur Squamous Epith Cells Amorphous Sediment Urine Bacteria Urine Mucus 10/23/20 10/23/20 10/23/20 19:43 21:25 21:31 WBC RBC Hgb Hct MCV MCH MCHC RDW Std Deviation RDW Coeff of Anne Plt Count MPV Immature Gran % (Auto) Neut % (Auto) Lymph % (Auto) [place] % (Auto) Eos % (Auto) Baso % (Auto) Absolute Neuts (auto) Absolute Lymphs (auto) Nucleated RBC % PT 14.8 INR 1.2 APTT 34.5 Sodium Potassium Chloride Carbon Dioxide Anion Gap BUN Creatinine Estim Creat Clear Calc Est GFR (MDRD) Af Amer Est GFR (MDRD) Non-Af BUN/Creatinine Ratio Glucose Lactic Acid 2.8 H* Calcium Total Bilirubin AST ALT Alkaline Phosphatase Total Protein Albumin Globulin Albumin/Globulin Ratio Urine Color Yellow Urine Clarity Sl. Cloudy Urine pH 7.0 Ur Specific [place] 1.010 Urine Protein 30 H Urine Glucose (UA) 250 H Urine Ketones Negative Urine Occult Blood 250 H Urine Nitrite Negative Urine Bilirubin Negative Urine Urobilinogen 1 H Ur Leukocyte Esterase 500 H Urine RBC 25-50 SEEN Urine WBC 50-100 SEEN Ur Squamous Epith Cells 0-5 SEEN Amorphous Sediment 1+ PHOS Urine Bacteria 1+ Urine Mucus 0 SEEN 10/24/20 10/24/20 10/24/20 00:15 04:30 04:30 WBC 9.6 RBC 3.24 L Hgb 10.4 L Hct 31.3 L MCV 96.6 MCH 32.1 H MCHC 33.2 D RDW Std Deviation 47.2 H RDW Coeff of Anne 13.2 Plt Count 165 MPV 10.4 Immature Gran % (Auto) 0.600 Neut % (Auto) 77.8 H Lymph % (Auto) 9.7 L [place] % (Auto) 11.5 H Eos % (Auto) 0.3 Baso % (Auto) 0.1 Absolute Neuts (auto) 7.4 Absolute Lymphs (auto) 0.93 Nucleated RBC % 0 PT INR APTT Sodium 135 L Potassium 3.5 Chloride 101 Carbon Dioxide 28.0 Anion Gap 6 BUN 4 L Creatinine 0.34 L Estim Creat Clear Calc 177.60 Est GFR (MDRD) Af Amer 290 Est GFR (MDRD) Non-Af 239 BUN/Creatinine Ratio 11.8 Glucose 119 H Lactic Acid 2.2 H* Calcium 8.5 Total Bilirubin AST ALT Alkaline Phosphatase Total Protein Albumin Globulin Albumin/Globulin Ratio Urine Color Urine Clarity Urine pH Ur Specific [place] Urine Protein Urine Glucose (UA) Urine Ketones Urine Occult Blood Urine Nitrite Urine Bilirubin Urine Urobilinogen Ur Leukocyte Esterase Urine RBC Urine WBC Ur Squamous Epith Cells Amorphous Sediment Urine Bacteria Urine Mucus - Other Studies Radiology: [] reviewed Other Studies: [] Route of nutrition/ use of supplements: [] Nutritional Intake: [] IV Site: [] Owens Catheter: [] - Physical Exam General: No apparent distress HEENT: Atraumatic, PERRLA Neck: Supple, No Nodes, - - trach in place Lungs: Diminished Cardiovascular: Tachycardic Abdomen: Soft, Non Tender, Non-Distended Extremities: No edema Skin: No rashes Musculoskeletal: No Tenderness to Palpation of Joints or Extremities - Assessment/Plan Antibiotics: [] Assessment/Plan: [] Active and Suspected Problems (Last Reviewed 09/20/20 @ 18:[address] Sathish Messina MD) Sepsis (Acute) Pneumonia (Acute) severe sepsis due to suspected pneumonia with chronic trach - agree with levaquin. Does have ucx in past that was not susc to levaquin, but currently low suspicion for uti. Will follow, thank you
== END 2020-10-24 13:47 | disposition home or self-care (01) | DRG 720 ==
LOC: ED 21:38 → ICU 21:51
PROVIDERS: Admitting Provider Student in an Organized Health Care Education/Training Program; Emergency Provider Emergency Medicine; PCP Internal Medicine; Visit Provider Family Medicine
DX: A41.9 Sepsis, unspecified organism (principal); J18.9 Pneumonia, unspecified organism; Z99.11 Dependence on respirator [ventilator] status; G80.0 Spastic quadriplegic cerebral palsy; E11.9 Type 2 diabetes mellitus without complications; Z79.4 Long term (current) use of insulin; J96.10 Chronic respiratory failure, unspecified whether with hypoxia or hypercapnia; R65.20 Severe sepsis without septic shock; E87.2 Acidosis; E87.1 Hypo-osmolality and hyponatremia; E86.0 Dehydration; Z93.1 Gastrostomy status; Z66 Do not resuscitate; E87.8 Other disorders of electrolyte and fluid balance, not elsewhere classified; Z93.0 Tracheostomy status
CPT/HCPCS: 31720; 71045; 80048; 80053; 81001; 82962; 83605; 85025; 85610; 85730; 87040; 87077; 87086; 87088; 87186; 87426; 87632; 87633; 93005; 94640; 97802; 99285; J7030; J7050; A4216

== ENCOUNTER → 2020-10-30 04:36 | Outpatient (CLI) | payer MEDICAID, SELFPAY ==
[2020-10-24 10:20] VITALS: BMI 24.9
[2020-10-30 11:27] LABS: Absolute Lymphocyte Count 2.07 X10^3/uL (0.83-4.51); Absolute Neutrophil Count 6.5 X10^3/uL (2.0-7.7); Basophil# 0.03 X10^3/uL; Basophil% 0.3 % (0-1); Eosinophil# 0.22 X10^3/uL; Eosinophils% 2.3 % (0-5); Hematocrit 33.3 % (37-47); Hemoglobin 10.5 g/dL (12.0-15.0); Lymphocyte # 2.07 X10^3/ul (4.0); Lymphocyte % 21.5 % (19-41); Mean Corp Hgb Conc 31.5 g/dL (32-36); Mean Corpuscular Hgb 30.3 pg (27.0-32.0); Mean Corpuscular Volume 96.2 fL (81-99); Mean Platelet Vol. 9.4 fl (6.2-12.0); Monocyte# 0.66 X10^3/uL; Monocyte% 6.9 % (0-10); NRBC Flagged by Analyzer 0 % (0-5); Neutrophil # 6.54 X10^3/uL (2.7-7.7); Platelet Count 561 K/mm3 (150-450); RBC Distribution Width CV 13.4 % (11.6-14.6); RBC Distribution Width SD 47.4 fl (35.1-43.9); Red Blood Count 3.46 M/mm3 (4.2-5.4); White Blood Count 9.6 K/mm3 (4.4-11.0)
[2020-10-30 11:41] LABS: Anion Gap 6 (5-15); BUN 9 mg/dL (7-18); BUN/Creat Ratio 14.2 RATIO (10-20); Calcium,Total 10.5 mg/dL (8.5-10.1); Chloride 104 mmol/L (98-107); Creatinine, Serum 0.63 mg/dL (0.55-1.02); EST Glomerular Filtration Rate 117 mL/min (>60); Est Glom Filt Rate - Afr Amer 141 mL/min (>60); Glucose 105 mg/dL (74-106); Potassium 3.7 mmol/L (3.5-5.1); Sodium Level 141 mmol/L (136-145)
[2020-10-30 11:51] LABS: Vitamin D,25 Hydroxy 44.7 ng/mL
== END ==
PROVIDERS: PCP Internal Medicine; Referring Provider Internal Medicine; Visit Provider Internal Medicine
DX: E11.65 Type 2 diabetes mellitus with hyperglycemia (principal)
CPT/HCPCS: 36415; 80048; 82306; 85025

== ENCOUNTER → 2020-12-21 | Outpatient (CLI) | payer MEDICAID, SELFPAY ==
[2020-12-06 12:04] VITALS: BMI 24.9
[2020-12-21 16:27] LABS: Color, Urine Straw (Yellow); Glucose, Dipstick Normal (Normal); Ketone-Dipstick Negative (Negative); Leukocyte Esterase-Dipstick 500 /ul (Negative); Nitrite-Dipstick Negative (Negative); Occult Blood-Urine 250 /ul (Negative); Protein-Dipstick 100 mg/dl (Negative); Urine Bilirubin Dipstick Negative (Negative); Urine Clarity Turbid (Clear); Urine Urobilinogen Normal (Normal)
== END | disposition home or self-care (01) ==
LOC: LABSPEC 16:12
PROVIDERS: PCP Internal Medicine; Visit Provider Internal Medicine
DX: R30.0 Dysuria (principal)
CPT/HCPCS: 81002; 87086; 87088; 87186

== ENCOUNTER → 2021-01-02 | Outpatient (CLI) | payer MEDICAID, SELFPAY ==
[2020-12-06 12:04] VITALS: BMI 24.9
[2021-01-02 13:49] LABS: Mucous, Urine 0 SEEN /hpf (<or=2+); Squamous Epithelial Cells - UA 0 SEEN /hpf (5-10)
[2021-01-02 14:29] LABS: Color, Urine Yellow (Yellow); Glucose, Dipstick Normal (Normal); Ketone-Dipstick Negative (Negative); Leukocyte Esterase-Dipstick 500 /ul (Negative); Nitrite-Dipstick Negative (Negative); Occult Blood-Urine 250 /ul (Negative); Protein-Dipstick 30 mg/dl (Negative); Specific Gravity, Urine 1.015 (1.002-1.030); Urine Bilirubin Dipstick Negative (Negative); Urine Clarity Sl. Cloudy (Clear); Urine Urobilinogen Normal (Normal)
[2021-01-02 14:38] LABS: Bacteria 1+ /hpf (None Seen); Red Blood Cells-Urine 10-25 SEEN /hpf (0-5); White Blood Cells >100 SEEN /hpf (0-5)
== END | disposition home or self-care (01) ==
LOC: LAB 13:40 → LABSPEC 13:43
PROVIDERS: PCP Internal Medicine; Referring Provider Internal Medicine; Visit Provider Internal Medicine
DX: N39.0 Urinary tract infection, site not specified (principal)
CPT/HCPCS: 81001; 87086; 87088; 87186

== ENCOUNTER 2021-02-08 19:19 | Emergency (ER) | payer MEDICAID, SELFPAY ==
[2020-12-06 12:04] VITALS: BMI 24.9
[2021-02-08 19:21] VITALS: BP 121/68; PULSE 88; RESP 22; TEMP 36.6; O2SAT 99; BMI 25.9
--- NOTE | 2021-02-08 20:05 | EDS_ITS ---
HPI HPI - GI History of Present Illness Chief Complaint: Complaint Informant: patient and parent Limited: other (neurologic disability, cerebral palsy, trach, inability to talk) Abdominal Pain/Flank Pain Onset: Yesterday Context: - (unclear) Quality: - (unk) Location: Diffuse Nausea/Vomiting/Emesis GI Symptom: Negative for Vomiting Diarrhea/Melena/Hematochezia GI Symptom: Negative for Diarrhea, Melena and Hematochezia Associated Symptoms Associated Symptoms: Negative for Hematuria Narrative Narrative: Yesterday patient spontaneously passed 3 kidney stones in her urine, mom found them in her diaper. She has been in some abdominal pain. History is extremely limited from the patient due to being nonverbal and having severe cerebral palsy, she has no use of her arms and legs is bedridden, on a ventilator with tracheostomy. Most of history comes from mom. She states that the patient does understand questions and can answer some, however answers are difficult for me to understand. She does seem to indicate that she is having diffuse abdominal pain that is not necessarily lateralizing. Mom denies her having any fevers or chills lately. No gross hematuria seen. Her PCP wanted to get a urinalysis and a culture, as she has had multiple urinary tract infections over the past 6 months or so, and has been off and on antibiotics, being on Cipro for the last 3 days, however home health nurse tried to do a straight cath and was unable to get anything, was meeting resistance and uncomfortable with progressing forward, so they referred her to the ER for the test. Mom is asking if we can do a CAT scan or something to look into this more, she has never had kidney stones before that they know of. [facility] Medical History Allergic rhinitis due to other allergen Amenorrhea Bronchiectasis without acute exacerbation Bronchitis C. difficile diarrhea Cellulitis of groin Cerebral palsy Chronic respiratory failure Diabetes Fungal infection of the groin Hyperglycemia Irregular menstrual cycle Lactic acid acidosis Malignant hyperthermia Mild mental retardation MRSA (methicillin resistant Staphylococcus aureus) Neuromuscular scoliosis Paraplegia Pneumonia Respiratory acidosis Seizure Severe sepsis Spastic hemiplegic cerebral palsy Streptococcus pneumoniae Thrush Visual disturbance Vitamin D deficiency Home Medications baclofen 30 mg GT TID 09/02/13 [History Last Taken 01/10/19] diazepam 5 mg/mL oral concentrate 5 mg PO LUNCH ml 08/28/17 [History Last Taken 01/10/19] diazepam 5 mg/mL oral concentrate 7 mg PO BID ml 08/28/17 [History Last Taken 01/10/19] oxcarbazepine 300 mg/5 mL (60 mg/mL) oral suspension 8 ml GT BID ml 08/28/17 [History Last Taken 01/24/18 14:00] phenazopyridine 200 mg GT TID PRN 11/24/19 [History Last Taken Unknown] Neocate Rell 112.5 g GT 4X/DAY 05/07/20 [History Last Taken Unknown] levalbuterol HCl 1.25 mg INHALATION BID 05/07/20 [History Last Taken Unknown] insulin aspart U-100 100 unit/mL (3 mL) subcutaneous pen 8 units SQ 4X/DAY 09/20/20 [History Last Taken Unknown] insulin aspart U-100 See Protocol SC 5X/DAY 10/23/20 [History Last Taken Unknown] ketotifen fumarate 1 drp OP BID PRN PRN 10/23/20 [History Last Taken Unknown] multivit-folic acid-herbal 275 10 ml GT DAILY 10/23/20 [History Last Taken Unknown] levalbuterol HCl 1.25 mg/3 mL solution for nebulization 1.25 mg INHALATION Q4H PRN PRN #90 ml 11/06/20 [Rx Last Taken Unknown] montelukast 10 mg tablet 10 mg GT QPM #30 tab 11/06/20 [Rx Last Taken Unknown] acidophilus-pectin, citrus 1 tab GT DAILY 11/12/20 [History Last Taken Unknown] cholecalciferol (vitamin D3) 2,000 unit GT DAILY 11/12/20 [History Last Taken Unknown] guaifenesin 100 mg/5 mL oral liquid 200 mg GT Q4H PRN PRN #473 ml 12/06/20 [Rx Last Taken Unknown] cetirizine 1 mg/mL oral solution 10 mg PO QDAY PRN #480 ml 01/23/21 [Rx Last Taken Unknown] ciprofloxacin [Cipro] 250 mg PO BID 02/08/21 [History Last Taken Unknown] tramadol 50 mg PO Q4H PRN PRN 2 Days #12 tab 02/08/21 [Rx Last Taken Unknown] Allergy/AdvReac Type Severity Reaction Status Date / Time linezolid Allergy Severe Other - Verified 02/08/21 19:31 seizure & coma vancomycin Allergy Severe Other - Verified 02/08/21 19:31 kidney failure tobramycin Allergy Intermediate Other - Verified 02/08/21 19:31 turned beet red nafcillin Allergy Mild Rash Verified 02/08/21 19:31 benzoin Allergy Unknown Rash Verified 02/08/21 19:31 milk Allergy Unknown Other Verified 02/08/21 19:31 soy Allergy Unknown Other Verified 02/08/21 19:31 polyethylene glycol 3350 AdvReac Unknown Hives Verified 02/08/21 19:31 [From Miralax] Family History Grandmother Cancer maternal Other Adopted Surgical History derotatox ostomies eyes straightened Gastrostomy tube in place H/O spinal fusion Presence of intrathecal baclofen pump rods to back Status post Jorje fundoplication surgery on gland under tongue tendonatomies Tracheostomy status Social History Smoking Status: Never smoker second hand exposure: No alcohol intake: never substance use type: does not use ROS ROS ED Review of Systems ROS Unobtainable: due to mental condition and due to mental status Constitutional Constitutional ED: Denies chills or fever(s) Gastrointestinal Gastrointestinal: Reports abdominal pain; Denies diarrhea or vomiting Genitourinary Genitourinary ED: Denies hematuria Neurologic Neurologic: Reports as per HPI and weakness EXAM Physical Exam Const Vital Signs: 02/08/21 19:21 02/08/21 21:24 Temperature 97.9 F Temperature Source Temporal Pulse Rate 88 82 Respiratory Rate 22 H 14 Blood Pressure 121/68 H 121/72 H Blood Pressure Mean 85 88 Pulse Ox 99 100 Oxygen Delivery Method Mechanical Ventilator Mechanical Ventilator Oxygen Flow Rate (L/min) 3 Positive well nourished and well developed General Appearance ED: well developed HEENT normocephalic and atraumatic Neck no lymphadenopathy and supple Neck Narrative: tracheostomy site clean, without signs of infection Resp normal respiratory effort and clear to auscultation bilaterally GI non-distended Auscultation: normoactive bowel sounds Palpation: soft; Negative for guarding or rebound tenderness present Neuro Neuro Narrative: Nonverbal. Unable to move extremities. At baseline per mother. Sensorium / Orientation: alert MDM MDM MDM Narrative Medical decision making narrative: Urinalysis shows significant leukocyte Estrace, this was sent for culture, patient is already on Cipro which she should continue until the culture results returned since she has no significant leukocytosis or signs of sepsis. CT was obtained, and she has a staghorn calculus on the right side. Mom states that she has never been told about this before. I think it would be reasonable to refer her to urology to have a consultation about possible treatment options. I did send the stones that mom brought for analysis. She does also have a right UVJ stone 3 x 4 mm without hydronephrosis right now, which certainly could be giving her the abdominal pain which we treated with morphine. This helped. She was given prophylactic Zofran. I offered a prescription for analgesics, I would use expectant manageme nt for the stone, she passed 3 others and one of them was larger than the one that is currently at the right UVJ. Mom is comfortable taking her home. Lab Data Attestation: I reviewed the patient's lab results. Labs: Laboratory Results - last 24 hr 02/08/21 02/08/21 02/08/21 20:25 20:25 21:10 WBC 8.0 RBC 3.82 L Hgb 12.1 Hct 34.4 L MCV 90.1 MCH 31.7 MCHC 35.2 RDW Std Deviation 37.9 RDW Coeff of Anne 11.6 Plt Count 297 MPV 10.2 Immature Gran % (Auto) 0.800 Neut % (Auto) 63.4 Lymph % (Auto) 23.2 [place] % (Auto) 10.4 H Eos % (Auto) 1.8 Baso % (Auto) 0.4 Absolute Neuts (auto) 5.1 Absolute Lymphs (auto) 1.85 Nucleated RBC % 0 Sodium 131 L Potassium 3.9 Chloride 93 L Carbon Dioxide 27.0 Anion Gap 11 BUN 6 L Creatinine 0.37 L Estim Creat Clear Calc 177.24 Est GFR (MDRD) Af Amer 259 Est GFR (MDRD) Non-Af 214 BUN/Creatinine Ratio 16.0 Glucose 91 Calcium 9.6 Urine Color Yellow Urine Clarity Sl. Cloudy Urine pH 8.0 Ur Specific [place] 1.010 Urine Protein 15 H Urine Glucose (UA) 100 H Urine Ketones Negative Urine Occult Blood 50 H Urine Nitrite Negative Urine Bilirubin Negative Urine Urobilinogen Normal Ur Leukocyte Esterase 500 H Radiography Diagnostic Testing: Radiology Impression Abdomen/Pelvis CT 02/08/21 20:52 IMPRESSION: 3 x 4 mm right ureterovesicular junction stone without right hydronephrosis. Increasing right Staghorn calculi. Individualized dose optimization techniques were used for this CT. at 2119 Reported and signed by: Jean Napoles MD Electronically Signed: Jean Napoles MD at 21:18 EDT Tel , Service support , Discharge Plan Triage Chief Complaint: Complaint ED Provider: Francisco Hernandez Dx/Rx/DC Orders Clinical Impression: Ureterolithiasis, Staghorn renal calculus, Recurrent UTI Instructions: ED Kidney Stone w/ Colic Prescriptions: New tramadol 50 MG tablet 50 mg PO Q4H PRN PRN (Reason: Pain) 2 Days Qty: 12 RF: 0 No Action diazepam 5 mg/mL oral concentrate 5 mg/mL concentrate 7 mg PO BID RF: 0 diazepam 5 mg/mL oral concentrate 5 mg/mL concentrate 5 mg PO LUNCH RF: 0 oxcarbazepine [Trileptal] 300 mg/5 mL (60 mg/mL) suspension 8 ml GT BID RF: 0 guaifenesin 100 mg/5 mL liquid 200 mg GT Q4H PRN PRN (Reason: thick secretions) Qty: 473 RF: 2 insulin aspart U-100 100 unit/mL (3 mL) insulin pen 8 units SQ 4X/DAY RF: 0 montelukast 10 mg tablet 10 mg GT QPM Qty: 30 RF: 6 levalbuterol HCl 1.25 mg/3 mL solution for nebulization 1.25 mg INHALATION Q4H PRN PRN (Reason: Sob &/Or Wheezing) Qty: 90 RF: 6 baclofen 20 MG tablet 30 mg GT TID RF: 0 phenazopyridine 200 MG tablet 200 mg GT TID PRN (Reason: UTI) RF: 0 levalbuterol HCl 1.25 MG/3 ML solution for nebulization 1.25 mg INHALATION BID RF: 0 Neocate Rell 400 GM powder 112.5 g GT 4X/DAY RF: 0 multivit-folic acid-herbal 275 480 ML liquid 10 ml GT DAILY RF: 0 insulin aspart U-100 100 UNITS/ML insulin pen See Protocol units SC 5X/DAY RF: 0 ketotifen fumarate 5 ML drops 1 drp OP BID PRN PRN (Reason: itchy eyes) RF: 0 cholecalciferol (vitamin D3) 2,000 UNIT capsule 2,000 unit GT DAILY RF: 0 acidophilus-pectin, citrus 1 TABLET tablet 1 tab GT DAILY RF: 0 ciprofloxacin [Cipro] 250 mg/5 mL Suspension,Microcapsule Recon 250 mg PO BID RF: 0 cetirizine [Children's Zyrtec Allergy] 1 mg/mL solution 10 mg PO QDAY PRN (Reason: allergy symptoms) Qty: 480 RF: 6 Primary Care Provider: Sandra Bermudez Referrals: Samaria Anaya MD [STAFF PHYSICIAN] - (call for appt) Sandra Bermudez DO [Primary Care Provider] - 3-5 Days Activity Restrictions/Additional Instructions: Continue Cipro until culture results return. Discussed with your doctor for results. Disposition Disposition: Home, self care
[2021-02-08] MEDS: Morphine 4 MG/ML Syringe IV (20:29)
[2021-02-08] MEDS: Ondansetron 4 MG/2 ML Vial IV (20:30)
[2021-02-08 20:39] LABS: Absolute Lymphocyte Count 1.85 X10^3/uL (0.83-4.51); Absolute Neutrophil Count 5.1 X10^3/uL (2.0-7.7); Basophil# 0.03 X10^3/uL; Basophil% 0.4 % (0-1); Eosinophil# 0.14 X10^3/uL; Eosinophils% 1.8 % (0-5); Hematocrit 34.4 % (37-47); Hemoglobin 12.1 g/dL (12.0-15.0); Lymphocyte # 1.85 X10^3/ul (0.83-4.51); Lymphocyte % 23.2 % (19-41); Mean Corp Hgb Conc 35.2 g/dL (32-36); Mean Corpuscular Hgb 31.7 pg (27.0-32.0); Mean Corpuscular Volume 90.1 fL (81-99); Mean Platelet Vol. 10.2 fl (6.2-12.0); Monocyte# 0.83 X10^3/uL; Monocyte% 10.4 % (0-10); NRBC Flagged by Analyzer 0 % (0-5); Neutrophil # 5.07 X10^3/uL (2.7-7.7); Neutrophil % 63.4 % (47-70); Platelet Count 297 K/mm3 (150-450); RBC Distribution Width CV 11.6 % (11.6-14.6); RBC Distribution Width SD 37.9 fl (35.1-43.9); Red Blood Count 3.82 M/mm3 (4.2-5.4)
--- NOTE | 2021-02-08 20:52 | CT_ITS ---
HISTORY: Kidney Stone, diffuse abd pain TECHNIQUE: Helically acquired images were obtained of the abdomen and pelvis without oral or IV contrast. A radiation dose optimization technique was used for this scan. COMPARISON: CT scan of the abdomen and pelvis from February 28, 2016, as well as a CT scan of the abdomen and pelvis from September 02, 2013. FINDINGS: # of images incl. paperwork: [id number] LUNG BASES: Due to the severity of the scoliosis the right ribs are relatively distracted from one another, and the left ribs are compressed against each other at the beginning cavity of the severity of the scoliosis, the dextroscoliosis of the thoracolumbar spine. There is a greater than 100 rotatory element to the scoliosis between the thoracic and the mid lumbar spine. Spinal fixation hardware remains. Some atelectasis and scarring within the left lung is the same. No acute osseous abnormality is perceived. CT abdomen: Transcutaneous gastric feeding tube remains in place The gallbladder is greatly distended with intra-and extrahepatic biliary ductal dilatation. Liver, spleen, pancreas, and adrenal glands are normal. Staghorn calculi, greater within the right kidney than previously. The left kidney is normal. No hydroureter. At the right ureterovesicular junction is a 3 x 4 mm new obstructing stone. The aorta is tortuous without aneurysm. There is no intra-or extrahepatic biliary ductal dilatation. CT pelvis: No ascites is present. The uterus and ovaries remaining with ovarian follicles. The appendix is without thickening but with hyperdense material within its lumen possibly previous oral contrast versus appendicolith. This is new since the previous CT.. The bladder is is adequately distended with a stone at the right ureterovesicular junction. Anterior abdominal wall scarring and thickening with some calcification within the subcutaneous fat is the same as the previous study. Bowel gas pattern is normal. CT/Abdomen/Pelvis without Cont IMPRESSION: 3 x 4 mm right ureterovesicular junction stone without right hydronephrosis. Increasing right Staghorn calculi. Individualized dose optimization techniques were used for this CT. at 2119 Reported and signed by: Jean Napoles MD Electronically Signed: Jean Napoles MD at 21:18 EDT Tel , Service support ,
[2021-02-08 20:54] LABS: Anion Gap 11 (5-15); BUN 6 mg/dL (7-18); Calcium,Total 9.6 mg/dL (8.5-10.1); Chloride 93 mmol/L (98-107); Creatinine, Serum 0.37 mg/dL (0.55-1.02); EST Glomerular Filtration Rate 214 mL/min (>60); Est Glom Filt Rate - Afr Amer 259 mL/min (>60); Estimated Creatinine Clearance 177.24 ml/min; Glucose 91 mg/dL (74-106); Potassium 3.9 mmol/L (3.5-5.1); Sodium Level 131 mmol/L (136-145)
[2021-02-08 21:19] LABS: Mucous, Urine 0 SEEN /hpf (<or=2+); Squamous Epithelial Cells - UA 0 SEEN /hpf (5-10)
[2021-02-08 21:21] LABS: Color, Urine Yellow (Yellow); Glucose, Dipstick 100 mg/dl (Normal); Ketone-Dipstick Negative (Negative); Leukocyte Esterase-Dipstick 500 /ul (Negative); Nitrite-Dipstick Negative (Negative); Occult Blood-Urine 50 /ul (Negative); Protein-Dipstick 15 mg/dl (Negative); Urine Bilirubin Dipstick Negative (Negative); Urine Clarity Sl. Cloudy (Clear); Urine Urobilinogen Normal (Normal)
[2021-02-08 21:24] VITALS: BP 121/72; PULSE 82; RESP 14; O2SAT 100
[2021-02-08] MEDS: Morphine 2 MG/ML Syringe IV (21:28)
[2021-02-08 21:43] LABS: White Blood Cells 25-50 SEEN /hpf (0-5)
[2021-02-08 21:44] LABS: Bacteria RARE /hpf (None Seen); Red Blood Cells-Urine 0-5 SEEN /hpf (0-5)
[2021-02-08 22:10] VITALS: BP 108/58; PULSE 82; RESP 17; O2SAT 99
--- NOTE | 2021-02-08 22:23 | ED.RN ---
family called [facility] to set up transport to go home. [facility] stated that they were unable to make that request possible.
[2021-02-18 13:28] LABS: Source NOT PROVIDED
[2021-02-18 13:31] LABS: Ca Oxalate, Dihydrate 100%
== END 2021-02-08 22:51 | disposition home or self-care (01) ==
PROVIDERS: Emergency Provider Emergency Medicine; PCP Internal Medicine
DX: N20.2 Calculus of kidney with calculus of ureter (principal); N39.0 Urinary tract infection, site not specified; G80.2 Spastic hemiplegic cerebral palsy; E11.9 Type 2 diabetes mellitus without complications; Z99.11 Dependence on respirator [ventilator] status; Z79.4 Long term (current) use of insulin
CPT/HCPCS: 74176; 80048; 81001; 82360; 85025; 87086; 87088; 87186; 96374; 96375; 96376; 99285; P9612; A4216; J2405

== ENCOUNTER → 2021-02-14 | Outpatient (CLI) | payer MEDICAID, SELFPAY ==
[2020-12-06 12:04] VITALS: BMI 24.9
[2021-02-08 19:21] VITALS: BMI 25.9
[2021-02-14 12:45] LABS: Color, Urine Yellow (Yellow); Glucose, Dipstick Normal (Normal); Ketone-Dipstick Negative (Negative); Leukocyte Esterase-Dipstick 500 /ul (Negative); Nitrite-Dipstick Positive (Negative); Occult Blood-Urine 250 /ul (Negative); Protein-Dipstick 30 mg/dl (Negative); Urine Bilirubin Dipstick Negative (Negative); Urine Clarity Sl. Cloudy (Clear); Urine Urobilinogen Normal (Normal)
== END | disposition home or self-care (01) ==
LOC: LABSPEC 12:01
PROVIDERS: PCP Internal Medicine; Referring Provider Internal Medicine; Visit Provider Internal Medicine
DX: R82.90 Unspecified abnormal findings in urine (principal)
CPT/HCPCS: 81002; 87088

== ENCOUNTER → 2021-02-19 | Outpatient (CLI) | payer MEDICAID, SELFPAY ==
[2021-02-08 19:21] VITALS: BMI 25.9
[2021-02-19 17:04] LABS: Color, Urine Yellow (Yellow); Glucose, Dipstick 250 mg/dl (Normal); Ketone-Dipstick 5 mg/dl (Negative); Leukocyte Esterase-Dipstick 500 /ul (Negative); Nitrite-Dipstick Positive (Negative); Occult Blood-Urine 150 /ul (Negative); Protein-Dipstick Negative (Negative); Specific Gravity, Urine 1.005 (1.002-1.030); Urine Bilirubin Dipstick Negative (Negative); Urine Clarity Clear (Clear); Urine Urobilinogen Normal (Normal)
== END | disposition home or self-care (01) ==
LOC: LABSPEC 14:37
PROVIDERS: PCP Internal Medicine; Visit Provider Internal Medicine
DX: N20.0 Calculus of kidney (principal)
CPT/HCPCS: 81002

== ENCOUNTER → 2021-02-26 15:01 | Outpatient (CLI) | payer MEDICAID, SELFPAY ==
[2021-02-08 19:21] VITALS: BMI 25.9
== END ==
PROVIDERS: PCP Internal Medicine; Visit Provider Internal Medicine
DX: R39.89 Other symptoms and signs involving the genitourinary system (principal)
CPT/HCPCS: 87086; 87088; 87186

== ENCOUNTER 2021-02-28 18:27 | Inpatient (IN) | payer MEDICAID, SELFPAY ==
[2021-02-28] VITALS (8 sets, daily range): BP systolic 108–128; BP diastolic 69–93; PULSE 72–90; RESP 18–23; TEMP 36.6–36.9; O2SAT 100; BMI 24.8
--- NOTE | 2021-02-28 18:50 | EX.ED.DYSGE1 ---
HPI History of Present Illness Chief Complaint: Complaint Informant: parent Onset/Context/Timing Onset: Weeks Context: Gradual Onset Timing: Continuous Quality: Resistant urinary tract infection Location: system Current Severity: Drug-resistant E. coli Worsened by: Nothing Relieved by: Nothing Associated Symptoms Associated Symptoms: Patient is nonverbal Narrative Narrative: Patient is a 30-year-old with cerebral palsy who has been on a ventilator since age of 13. Mother self caths her. She was cathed prior to arrival. She had not urinated since 0200. There is a potential drug reaction/allergy with the antibiotic she is sensitive to. After discussion with pharmacist plan was to premedicate with H1 and H2 leola and treat with ertapenem. Mother states she is normally flushed. Prior similar symptoms: Yes Recent Illness/Hospitalization: No PFSH PFSH Medical History Allergic rhinitis due to other allergen Amenorrhea Bronchiectasis without acute exacerbation Bronchitis C. difficile diarrhea Cellulitis of groin Cerebral palsy Chronic respiratory failure Diabetes Fungal infection of the groin Hyperglycemia Irregular menstrual cycle Lactic acid acidosis Malignant hyperthermia Mild mental retardation MRSA (methicillin resistant Staphylococcus aureus) Neuromuscular scoliosis Paraplegia Pneumonia Respiratory acidosis Seizure Severe sepsis Spastic hemiplegic cerebral palsy Streptococcus pneumoniae Thrush Visual disturbance Vitamin D deficiency Home Medications baclofen 30 mg GT TID 09/02/13 [History Last Taken 01/10/19] diazepam 5 mg/mL oral concentrate 5 mg PO LUNCH ml 08/28/17 [History Last Taken 01/10/19] diazepam 5 mg/mL oral concentrate 7 mg PO BID ml 08/28/17 [History Last Taken 01/10/19] oxcarbazepine 300 mg/5 mL (60 mg/mL) oral suspension 8 ml GT BID ml 08/28/17 [History Last Taken 01/24/18 14:00] phenazopyridine 200 mg GT TID PRN 11/24/19 [History Last Taken Unknown] Neocate Rell 112.5 g GT 4X/DAY 05/07/20 [History Last Taken Unknown] levalbuterol HCl 1.25 mg INHALATION BID 05/07/20 [History Last Taken Unknown] insulin aspart U-100 100 unit/mL (3 mL) subcutaneous pen 8 units SQ 4X/DAY 09/20/20 [History Last Taken Unknown] insulin aspart U-100 See Protocol SC 5X/DAY 10/23/20 [History Last Taken Unknown] ketotifen fumarate 1 drp OP BID PRN PRN 10/23/20 [History Last Taken Unknown] multivit-folic acid-herbal 275 10 ml GT DAILY 10/23/20 [History Last Taken Unknown] levalbuterol HCl 1.25 mg/3 mL solution for nebulization 1.25 mg INHALATION Q4H PRN PRN #90 ml 11/06/20 [Rx Last Taken Unknown] montelukast 10 mg tablet 10 mg GT QPM #30 tab 11/06/20 [Rx Last Taken Unknown] acidophilus-pectin, citrus 1 tab GT DAILY 11/12/20 [History Last Taken Unknown] cholecalciferol (vitamin D3) 2,000 unit GT DAILY 11/12/20 [History Last Taken Unknown] guaifenesin 100 mg/5 mL oral liquid 200 mg GT Q4H PRN PRN #473 ml 12/06/20 [Rx Last Taken Unknown] cetirizine 1 mg/mL oral solution 10 mg PO QDAY PRN #480 ml 01/23/21 [Rx Last Taken Unknown] ciprofloxacin [Cipro] 250 mg PO BID 02/08/21 [History Last Taken Unknown] tramadol 50 mg PO Q4H PRN PRN 2 Days #12 tab 02/08/21 [Rx Last Taken Unknown] Allergy/AdvReac Type Severity Reaction Status Date / Time linezolid Allergy Severe Other - Verified 02/28/21 18:34 seizure & coma vancomycin Allergy Severe Other - Verified 02/28/21 18:34 kidney failure tobramycin Allergy Intermediate Other - Verified 02/28/21 18:34 turned beet red nafcillin Allergy Mild Rash Verified 02/28/21 18:34 benzoin Allergy Unknown Rash Verified 02/28/21 18:34 milk Allergy Unknown Other Verified 02/28/21 18:34 soy Allergy Unknown Other Verified 02/28/21 18:34 polyethylene glycol 3350 AdvReac Unknown Hives Verified 02/28/21 18:34 [From Miralax] Family History Grandmother Cancer maternal Other Adopted Surgical History derotatox ostomies eyes straightened Gastrostomy tube in place H/O spinal fusion Presence of intrathecal baclofen pump rods to back Status post Jorje fundoplication surgery on gland under tongue tendonatomies Tracheostomy status Social History (Updated 02/28/21 @ 18:[address] Stephan Hughes MD) household members: other details: Mother and is vent dependent housing: house Smoking Status: Never smoker second hand exposure: No alcohol intake: never substance use type: does not use ROS ROS ED Review of Systems ROS Unobtainable: due to mental status EXAM Physical Exam Const Vital Signs: 02/28/21 18:29 02/28/21 18:33 02/28/21 19:18 Temperature 98 F 98 F Temperature Source Temporal Temporal Pulse Rate 90 90 85 Respiratory Rate 20 H 20 H Blood Pressure 128/83 H 128/83 H 126/93 H Blood Pressure Mean 98 98 104 Pulse Ox 100 100 Oxygen Delivery Method Mechanical Ventilator Mechanical Ventilator Room Air Oxygen Flow Rate (L/min) 3 02/28/21 19:53 Temperature 98.2 F Temperature Source Temporal Pulse Rate Respiratory Rate Blood Pressure Blood Pressure Mean Pulse Ox Oxygen Delivery Method Oxygen Flow Rate (L/min) Positive well nourished, well developed and obese General Appearance ED: well developed and NAD Nutritional Appearance: obese HEENT Reports dry mucous membranes HEENT Narrative: Poor dentition. Nares patent. Ears normal. Negative for trauma Mouth ED: Yes dry mucous membranes Mouth: dry mucous membranes Eyes Eyes Narrative: Pupils are dilated. She has nystagmus and roving eyes. Sclerae anicteric. Conjunctive is pink. Neck Neck Narrative: Patient is in a hyperextended position due to her cerebral palsy. She has a tracheostomy. There is no evidence of infection. Resp normal respiratory effort and clear to auscultation bilaterally Cardio regular rate, regular rhythm, S1 normal heart sound, S2 normal heart sound and no murmurs GI normal to inspection, nondistended, normoactive bowel sounds Palpation: soft Back/Spine Back/Spine Narrative: No apparent tenderness to palpation Extremity Extremity Narrative: Dependent edema of the lower extremities with atrophy Neuro No oriented x3 and No CN's II-XII intact bilaterally Neuro Narrative: Patient has deformity of muscle skeletal system due to cerebral palsy Sensorium / Orientation: Negative for alert Motor Exam: Negative for strength 5/5 throughout Psych Appearance: other Nonverbal and vent dependent Skin Skin Narrative: Erythema of the face, which mother states is her normal MDM MDM MDM Narrative Medical decision making narrative: Sepsis work-up was initiated since patient has a heart rate of 90 and respiratory 24. Appropriate blood work was ordered. Based on the sensitivities from urine specimen obtained on February 26 patient was started on ertapenim Patient has no sirs criteria. She does have a complex urinary tract infection that was treated with appropriate antibiotics based on culture sensitivity. Lactate is elevated 2.7. Uncertain cause. Will contact hospitalist for admission. Mother states she has administered IV antibiotics through a PICC line in the past. Lab Data Attestation: I reviewed the patient's lab results. Labs: Laboratory Results - last 24 hr 02/28/21 02/28/21 02/28/21 19:18 19:20 19:20 WBC 7.1 RBC 3.72 L Hgb 11.8 L Hct 34.1 L MCV 91.7 MCH 31.7 MCHC 34.6 RDW Std Deviation 40.4 RDW Coeff of Anne 12.0 Plt Count 288 MPV 9.3 Immature Gran % (Auto) 0.400 Neut % (Auto) 62.2 Lymph % (Auto) 21.1 [place] % (Auto) 14.1 H Eos % (Auto) 1.8 Baso % (Auto) 0.4 Absolute Neuts (auto) 4.4 Absolute Lymphs (auto) 1.49 Nucleated RBC % 0 PT 12.7 INR 1.0 APTT 27.0 Sodium Potassium Chloride Carbon Dioxide Anion Gap BUN Creatinine Estim Creat Clear Calc Est GFR (MDRD) Af Amer Est GFR (MDRD) Non-Af BUN/Creatinine Ratio Glucose Calcium Total Bilirubin AST ALT Alkaline Phosphatase Total Protein Albumin Globulin Albumin/Globulin Ratio Urine Color Yellow Urine Clarity Cloudy Urine pH 6.5 Ur Specific [place] 1.015 Urine Protein 100 H Urine Glucose (UA) 50 H Urine Ketones 5 H Urine Occult Blood 250 H Urine Nitrite Positive H Urine Bilirubin Negative Urine Urobilinogen Normal Ur Leukocyte Esterase 500 H Urine RBC 10-25 SEEN Urine WBC >100 SEEN Ur Squamous Epith Cells 0 SEEN Urine Bacteria 2+ Urine Mucus 0 SEEN 02/28/21 19:20 WBC RBC Hgb Hct MCV MCH MCHC RDW Std Deviation RDW Coeff of Anne Plt Count MPV Immature Gran % (Auto) Neut % (Auto) Lymph % (Auto) [place] % (Auto) Eos % (Auto) Baso % (Auto) Absolute Neuts (auto) Absolute Lymphs (auto) Nucleated RBC % PT INR APTT Sodium 130 L Potassium 3.6 Chloride 91 L Carbon Dioxide 30.0 Anion Gap 9 BUN 7 Creatinine 0.41 L Estim Creat Clear Calc 153.72 Est GFR (MDRD) Af Amer 234 Est GFR (MDRD) Non-Af 194 BUN/Creatinine Ratio 17.2 Glucose 87 Calcium 9.6 Total Bilirubin 0.20 AST 14 L ALT 25 Alkaline Phosphatase 76 Total Protein 7.9 Albumin 3.9 Globulin 4.0 Albumin/Globulin Ratio 1.0 Urine Color Urine Clarity Urine pH Ur Specific [place] Urine Protein Urine Glucose (UA) Urine Ketones Urine Occult Blood Urine Nitrite Urine Bilirubin Urine Urobilinogen Ur Leukocyte Esterase Urine RBC Urine WBC Ur Squamous Epith Cells Urine Bacteria Urine Mucus Critical Care Time Critical Care Time: Yes Critical care time (excluding procedures): 30-74 minutes (22 minutes), Including time spent: (History, physical, documentation, discussion with pharmacist regarding antibiotic choice), Discussing w/Patient &/or Family/Civil Design Technician, Discussing w/Consultants and Arranging Admission or Transfer Discharge Plan Dx/Rx/DC Orders Clinical Impression: Urinary tract infection due to extended-spectrum beta lactamase (ESBL) producing Escherichia coli, Cerebral palsy, Acidosis, lactic, Ventilator dependent, 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
[2021-02-28 19:29] LABS: Mucous, Urine 0 SEEN /hpf (<or=2+); Squamous Epithelial Cells - UA 0 SEEN /hpf (5-10)
[2021-02-28 19:34] LABS: Color, Urine Yellow (Yellow); Glucose, Dipstick 50 mg/dl (Normal); Ketone-Dipstick 5 mg/dl (Negative); Leukocyte Esterase-Dipstick 500 /ul (Negative); Nitrite-Dipstick Positive (Negative); Occult Blood-Urine 250 /ul (Negative); Protein-Dipstick 100 mg/dl (Negative); Specific Gravity, Urine 1.015 (1.002-1.030); Urine Bilirubin Dipstick Negative (Negative); Urine Clarity Cloudy (Clear); Urine Urobilinogen Normal (Normal); Urine pH 6.5 (5.0 - 8.0)
[2021-02-28 19:35] LABS: Absolute Lymphocyte Count 1.49 X10^3/uL (0.83-4.51); Absolute Neutrophil Count 4.4 X10^3/uL (2.0-7.7); Basophil# 0.03 X10^3/uL; Basophil% 0.4 % (0-1); Eosinophil# 0.13 X10^3/uL; Eosinophils% 1.8 % (0-5); Hematocrit 34.1 % (37-47); Hemoglobin 11.8 g/dL (12.0-15.0); Lymphocyte # 1.49 X10^3/ul (0.83-4.51); Lymphocyte % 21.1 % (19-41); Mean Corp Hgb Conc 34.6 g/dL (32-36); Mean Corpuscular Hgb 31.7 pg (27.0-32.0); Mean Corpuscular Volume 91.7 fL (81-99); Mean Platelet Vol. 9.3 fl (6.2-12.0); Monocyte% 14.1 % (0-10); NRBC Flagged by Analyzer 0 % (0-5); Neutrophil # 4.39 X10^3/uL (2.7-7.7); Neutrophil % 62.2 % (47-70); Platelet Count 288 K/mm3 (150-450); RBC Distribution Width SD 40.4 fl (35.1-43.9); Red Blood Count 3.72 M/mm3 (4.2-5.4); White Blood Count 7.1 K/mm3 (4.4-11.0)
[2021-02-28 19:46] LABS: White Blood Cells >100 SEEN /hpf (0-5)
[2021-02-28] MEDS: DiphenhydrAMINE 50 MG/ML Syringe 12.5 MG IV (19:46)
[2021-02-28 19:47] LABS: Red Blood Cells-Urine 10-25 SEEN /hpf (0-5)
[2021-02-28 19:48] LABS: Bacteria 2+ /hpf (None Seen)
[2021-02-28] MEDS: Famotidine 200 MG/20 ML MDV 20 MG in 0.9% Normal Saline (Pres. free 8 ML 300 MG IV (19:49)
[2021-02-28 20:01] LABS: Prothrombin Time (Protime)PT. 12.7 SECONDS (11.7-14.9)
[2021-02-28 20:24] LABS: AST(SGOT) 14 U/L (15-37); Alanine Aminotransfer ALT/SGPT 25 U/L (13-56); Albumin, Serum 3.9 g/dL (3.2-5.0); Alkaline Phosphatase 76 U/L (45-117); Anion Gap 9 (5-15); BUN 7 mg/dL (7-18); BUN/Creat Ratio 17.2 RATIO (10-20); Calcium,Total 9.6 mg/dL (8.5-10.1); Chloride 91 mmol/L (98-107); Creatinine, Serum 0.41 mg/dL (0.55-1.02); EST Glomerular Filtration Rate 194 mL/min (>60); Est Glom Filt Rate - Afr Amer 234 mL/min (>60); Estimated Creatinine Clearance 153.72 ml/min; Glucose 87 mg/dL (74-106); Potassium 3.6 mmol/L (3.5-5.1); Protein, Total 7.9 g/dL (6.4-8.2); Sodium Level 130 mmol/L (136-145)
[2021-02-28 20:27] LABS: Lactic Acid 2.7 mmol/L (0.4-1.9)
--- NOTE | 2021-02-28 20:35 | ED.RN ---
lab attempted second set blood cultures. unable to obtain. dr. taylor aware. orders to start antibiotic post 30 minutes premedication
--- NOTE | 2021-02-28 20:46 | HP.PCM.HOS_ITS ---
HPI - General General Date of Admission: 02/28/21 HPI Narrative MANDY RIVERA, is a 30 F with a significant history of cerebral palsy and who is vent dependent presenting because of UTI that has persisted for about a month. Reportedly patient has been on about 4 antibiotics without any relief from a UTI. Her mother who is her environmental health manager report that patient's urine smells very foul to the point that she (patient's mother) wants to throw up. Also reportedly patient passed multiple stones in the last week. Reportedly patient has staghorn calculus. At the emergency department the patient's lactic acid was elevated. [facility] Medical History Allergic rhinitis due to other allergen Amenorrhea Bronchiectasis without acute exacerbation Bronchitis C. difficile diarrhea Cellulitis of groin Cerebral palsy Chronic respiratory failure Diabetes Fungal infection of the groin Hyperglycemia Irregular menstrual cycle Lactic acid acidosis Malignant hyperthermia Mild mental retardation MRSA (methicillin resistant Staphylococcus aureus) Neuromuscular scoliosis Paraplegia Pneumonia Respiratory acidosis Seizure Severe sepsis Spastic hemiplegic cerebral palsy Streptococcus pneumoniae Thrush Visual disturbance Vitamin D deficiency Home Medications baclofen 30 mg GT TID 09/02/13 [History Last Taken 01/10/19] diazepam 5 mg/mL oral concentrate 5 mg PO DAILY ml 08/28/17 [History Last Taken 01/10/19] diazepam 5 mg/mL oral concentrate 7 mg PO BID ml 08/28/17 [History Last Taken 01/10/19] oxcarbazepine 300 mg/5 mL (60 mg/mL) oral suspension 8 ml GT BID ml 08/28/17 [History Last Taken 01/24/18 14:00] levalbuterol HCl 1.25 mg INHALATION BID 05/07/20 [History Last Taken Unknown] insulin aspart U-100 100 unit/mL (3 mL) subcutaneous pen 8 units SQ 4X/DAY 09/20/20 [History Last Taken Unknown] insulin aspart U-100 See Protocol SC 5X/DAY 10/23/20 [History Last Taken Unknown] multivit-folic acid-herbal 275 10 ml GT DAILY 10/23/20 [History Last Taken Unknown] montelukast 10 mg tablet 10 mg GT QPM #30 tab 11/06/20 [Rx Last Taken Unknown] acidophilus-pectin, citrus 1 tab GT DAILY 11/12/20 [History Last Taken Unknown] cholecalciferol (vitamin D3) 4,000 unit GT DAILY 11/12/20 [History Last Taken Unknown] guaifenesin 100 mg/5 mL oral liquid 200 mg GT Q4H PRN PRN #473 ml 12/06/20 [Rx Last Taken Unknown] cetirizine 1 mg/mL oral solution 10 mg PO QDAY PRN #480 ml 01/23/21 [Rx Last Taken Unknown] diphenhydramine HCl [Benadryl] 12.5 mg PO PRN PRN 02/28/21 [History Last Taken Unknown] ferrous sulfate 60 mg PO DAILY 02/28/21 [History Last Taken Unknown] fexofenadine 60 mg PO BID PRN PRN 02/28/21 [History Last Taken Unknown] fluticasone propionate [Flovent] 2 puff INHALATION BID 02/28/21 [History Last Taken Unknown] Allergy/AdvReac Type Severity Reaction Status Date / Time linezolid Allergy Severe Other - Verified 02/28/21 18:34 seizure & coma vancomycin Allergy Severe Other - Verified 02/28/21 18:34 kidney failure tobramycin Allergy Intermediate Other - Verified 02/28/21 18:34 turned beet red nafcillin Allergy Mild Rash Verified 02/28/21 18:34 benzoin Allergy Unknown Rash Verified 02/28/21 18:34 milk Allergy Unknown Other Verified 02/28/21 18:34 soy Allergy Unknown Other Verified 02/28/21 18:34 polyethylene glycol 3350 AdvReac Unknown Hives Verified 02/28/21 18:34 [From Miralax] Family History Grandmother Cancer maternal Other Adopted Surgical History derotatox ostomies eyes straightened Gastrostomy tube in place H/O spinal fusion Presence of intrathecal baclofen pump rods to back Status post Jorje fundoplication surgery on gland under tongue tendonatomies Tracheostomy status Social History household members: other details: Mother and is vent dependent housing: house Smoking Status: Never smoker second hand exposure: No alcohol intake: never substance use type: does not use ROS ROS Narrative 12 point review of system is negative except as stated in HPI. Vital Signs Vital Signs Vital Signs: 02/28/21 18:29 02/28/21 18:33 02/28/21 19:18 Temperature 98 F 98 F Temperature Source Temporal Temporal Pulse Rate 90 90 85 Respiratory Rate 20 H 20 H Blood Pressure 128/83 H 128/83 H 126/93 H Blood Pressure Mean 98 98 104 Pulse Ox 100 100 Oxygen Delivery Method Mechanical Ventilator Mechanical Ventilator Room Air Oxygen Flow Rate (L/min) 3 02/28/21 19:33 02/28/21 19:53 Temperature 98.2 F 98.2 F Temperature Source Temporal Temporal Pulse Rate 72 Respiratory Rate 19 H Blood Pressure 121/70 H Blood Pressure Mean 87 Pulse Ox 100 Oxygen Delivery Method Room Air Oxygen Flow Rate (L/min) Weight Weight: 48.534 kg Body Mass Index (BMI) 24.8 Physical Exam Narrative Physical exam: General: Obtunded, eyes rolling. Neck: Tracheostomy; vent in place CVS: Regular rate and rhythm Respiratory: Coarse. Abdomen: PEG tube in place. Soft, nontender, nondistended, normal bowel sounds, no masses Back: Nontender, no CVA tenderness. Extremities: No edema. Neuro: Obtunded. Does not follow commands. Results Lab / Micro Data Result Diagrams: 02/28/21 19:20 02/28/21 19:20 Labs: Laboratory Results - last 24 hr 02/28/21 02/28/21 02/28/21 19:18 19:20 19:20 WBC 7.1 RBC 3.72 L Hgb 11.8 L Hct 34.1 L MCV 91.7 MCH 31.7 MCHC 34.6 RDW Std Deviation 40.4 RDW Coeff of Anne 12.0 Plt Count 288 MPV 9.3 Immature Gran % (Auto) 0.400 Neut % (Auto) 62.2 Lymph % (Auto) 21.1 [place] % (Auto) 14.1 H Eos % (Auto) 1.8 Baso % (Auto) 0.4 Absolute Neuts (auto) 4.4 Absolute Lymphs (auto) 1.49 Nucleated RBC % 0 PT 12.7 INR 1.0 APTT 27.0 Sodium Potassium Chloride Carbon Dioxide Anion Gap BUN Creatinine Estim Creat Clear Calc Est GFR (MDRD) Af Amer Est GFR (MDRD) Non-Af BUN/Creatinine Ratio Glucose Lactic Acid Calcium Total Bilirubin AST ALT Alkaline Phosphatase Total Protein Albumin Globulin Albumin/Globulin Ratio Urine Color Yellow Urine Clarity Cloudy Urine pH 6.5 Ur Specific [place] 1.015 Urine Protein 100 H Urine Glucose (UA) 50 H Urine Ketones 5 H Urine Occult Blood 250 H Urine Nitrite Positive H Urine Bilirubin Negative Urine Urobilinogen Normal Ur Leukocyte Esterase 500 H Urine RBC 10-25 SEEN Urine WBC >100 SEEN Ur Squamous Epith Cells 0 SEEN Urine Bacteria 2+ Urine Mucus 0 SEEN 02/28/21 02/28/21 19:20 19:20 WBC RBC Hgb Hct MCV MCH MCHC RDW Std Deviation RDW Coeff of Anne Plt Count MPV Immature Gran % (Auto) Neut % (Auto) Lymph % (Auto) [place] % (Auto) Eos % (Auto) Baso % (Auto) Absolute Neuts (auto) Absolute Lymphs (auto) Nucleated RBC % PT INR APTT Sodium 130 L Potassium 3.6 Chloride 91 L Carbon Dioxide 30.0 Anion Gap 9 BUN 7 Creatinine 0.41 L Estim Creat Clear Calc 153.72 Est GFR (MDRD) Af Amer 234 Est GFR (MDRD) Non-Af 194 BUN/Creatinine Ratio 17.2 Glucose 87 Lactic Acid 2.7 H* Calcium 9.6 Total Bilirubin 0.20 AST 14 L ALT 25 Alkaline Phosphatase 76 Total Protein 7.9 Albumin 3.9 Globulin 4.0 Albumin/Globulin Ratio 1.0 Urine Color Urine Clarity Urine pH Ur Specific [place] Urine Protein Urine Glucose (UA) Urine Ketones Urine Occult Blood Urine Nitrite Urine Bilirubin Urine Urobilinogen Ur Leukocyte Esterase Urine RBC Urine WBC Ur Squamous Epith Cells Urine Bacteria Urine Mucus Assessment & Plan Assessment/Plan (1) Complicated UTI (urinary tract infection): (2) Ureterolithiasis: PLAN: Persistent complicated UTI Urine culture shows presumptive ESBL E. coli sensitive to Invanz. Mother reports history of staghorn renal calculus. We will begin department labs showed normal white counts. Invanz IV given at emergency department. We will continue Invanz IV. On discharge consider Invanz IM. Lactic acid is 2.7; trend. Blood culture ordered at the emergency department; follow. Admit to intensive care unit and consult woodworking shop hand. Vaginal yeast infection Received Diflucan at emergency department. Cerebral palsy with tracheostomy vent dependency; and G-tube Complicates care. DVT prophylaxis: Subcutaneous Lovenox ordered. Charges/Coding Visit Charges Inpatient E&M: 00998 Init Hosp L3
[2021-02-28] MEDS: Fluconazole 100 MG Tablet GT (21:26)
[2021-02-28 23:30] LABS: Reflex Lactate? Y
[2021-03-01] VITALS (27 sets, daily range): BP systolic 83–133; BP diastolic 42–92; PULSE 51–101; RESP 14–22; TEMP 36.5–36.7; O2SAT 97–100; BMI 23.8
[2021-03-01 00:40] LABS: Lactic Acid 1.3 mmol/L (0.4-1.9)
[2021-03-01] MEDS: 0.9% Normal Saline 1,000 ML 75 ML IV ×2 (01:08→14:46)
[2021-03-01] MEDS: 0.9% Saline Lock 10 ML Syringe IV (01:09)
--- NOTE | 2021-03-01 03:32 | CPS ---
Patient assessed by PRENATAL NURSE for trach and home ventilator check. Trach noted to be normal with no abnormal findings around stoma. Patient's home ventilator setup with 3L bled into machine. Adequate tidal volumes observed on home LTV ventilator. Patient's father at bedside with patient tonight. No current needs from patient or family. PRENATAL NURSE will monitor patient on home ventilator LTV.
--- NOTE | 2021-03-01 07:06 | CON.PCM.CC_ITS ---
Assessment & Plan Assessment/Plan (1) Recurrent UTI: PLAN: RECOMMENDATIONS: 1. Continue current antimicrobials and consider infectious diseases consultation. 2. Continue baseline vent support. 3. Resume tube feeds per home regimen. 4. The patient is medically stable for transfer out of the intensive care unit. 5. Given the lack of ICU or pulmonary needs, will sign off. Please call with any additional questions. IMPRESSIONS: 1. Complicated UTI The patient presented to the hospital after being notified by her primary care provider that she had a multidrug-resistant urinary tract infection. Her February 26 urine culture was positive for ESBL E. coli with greater than 100,000 CFU. The patient is otherwise at her baseline from a clinical perspective. The patient can be resumed on her tube feed regimen from my perspective. I would recommend that infectious diseases be consulted to weigh in on her antimicrobial management. 2. Chronic respiratory failure Continue baseline ventilatory support per home regimen. 3. History of spastic quadriplegia/cerebral palsy Complicates care, management, recovery and prognosis. Continue home medications as indicated. This note was generated with RealD dictation software. It may contain incorrect words, spelling, and punctuation that were not noted in checking the note before signing. HPI Consult Data Date of Consult: 03/01/21 HPI Narrative Reason for Consultation: Severe sepsis HPI Narrative: The patient is a 30-year-old female, with a history as outlined below, who presented to the emergency department on February 28 at the urging of her PCP, after a urine culture was obtained and the patient was found to be positive for ESBL E. coli. Per the patient's father, who is present at the bedside, the patient was otherwise in her normal state of health and acting normally. The patient does have a medical history significant for cerebral palsy with a ch ronic trach and G-tube in place. On presentation to the emergency department, the patient was noted to be afebrile and hemodynamically stable. The patient is currently maintaining appropriate saturations on her baseline vent settings. Initial laboratory evaluation revealed a normal white blood cell count. Chemistry profile was notable for a sodium of 130, chloride of 91 and creatinine of 0.41. Lactate was mildly elevated to 2.7. The patient was placed on supplemental IV fluids and antimicrobials. She was subsequently admitted to the medical intensive care unit. No overnight issues were identified. The patient's lactic acidemia has resolved. She remains hemodynamically stable. [facility] Medical History Allergic rhinitis due to other allergen Amenorrhea Bronchiectasis without acute exacerbation Bronchitis C. difficile diarrhea Cellulitis of groin Cerebral palsy Chronic respiratory failure Diabetes Fungal infection of the groin Hyperglycemia Irregular menstrual cycle Lactic acid acidosis Malignant hyperthermia Mild mental retardation MRSA (methicillin resistant Staphylococcus aureus) Neuromuscular scoliosis Paraplegia Pneumonia Respiratory acidosis Seizure Severe sepsis Spastic hemiplegic cerebral palsy Streptococcus pneumoniae Thrush Visual disturbance Vitamin D deficiency Home Medications baclofen 30 mg GT TID 09/02/13 [History Last Taken 01/10/19] diazepam 5 mg/mL oral concentrate 5 mg PO DAILY ml 08/28/17 [History Last Taken 01/10/19] diazepam 5 mg/mL oral concentrate 7 mg PO BID ml 08/28/17 [History Last Taken 01/10/19] oxcarbazepine 300 mg/5 mL (60 mg/mL) oral suspension 8 ml GT BID ml 08/28/17 [History Last Taken 01/24/18 14:00] levalbuterol HCl 1.25 mg INHALATION BID 05/07/20 [History Last Taken Unknown] insulin aspart U-100 100 unit/mL (3 mL) subcutaneous pen 8 units SQ 4X/DAY 09/20/20 [History Last Taken Unknown] insulin aspart U-100 See Protocol SC 5X/DAY 10/23/20 [History Last Taken Unkno wn] multivit-folic acid-herbal 275 10 ml GT DAILY 10/23/20 [History Last Taken Unknown] montelukast 10 mg tablet 10 mg GT QPM #30 tab 11/06/20 [Rx Last Taken Unknown] acidophilus-pectin, citrus 1 tab GT DAILY 11/12/20 [History Last Taken Unknown] cholecalciferol (vitamin D3) 4,000 unit GT DAILY 11/12/20 [History Last Taken Unknown] guaifenesin 100 mg/5 mL oral liquid 200 mg GT Q4H PRN PRN #473 ml 12/06/20 [Rx Last Taken Unknown] cetirizine 1 mg/mL oral solution 10 mg PO QDAY PRN #480 ml 01/23/21 [Rx Last Taken Unknown] diphenhydramine HCl [Benadryl] 12.5 mg PO PRN PRN 02/28/21 [History Last Taken Unknown] ferrous sulfate 60 mg PO DAILY 02/28/21 [History Last Taken Unknown] fexofenadine 60 mg PO BID PRN PRN 02/28/21 [History Last Taken Unknown] fluticasone propionate [Flovent] 2 puff INHALATION BID 02/28/21 [History Last Taken Unknown] Allergy/AdvReac Type Severity Reaction Status Date / Time linezolid Allergy Severe Other - Verified 02/28/21 18:34 seizure & coma vancomycin Allergy Severe Other - Verified 02/28/21 18:34 kidney failure tobramycin Allergy Intermediate Other - Verified 02/28/21 18:34 turned beet red nafcillin Allergy Mild Rash Verified 02/28/21 18:34 benzoin Allergy Unknown Rash Verified 02/28/21 18:34 milk Allergy Unknown Other Verified 02/28/21 18:34 soy Allergy Unknown Other Verified 02/28/21 18:34 polyethylene glycol 3350 AdvReac Unknown Hives Verified 02/28/21 18:34 [From Miralax] Family History Grandmother Cancer maternal Other Adopted Surgical History derotatox ostomies eyes straightened Gastrostomy tube in place H/O spinal fusion Presence of intrathecal baclofen pump rods to back Status post Jorje fundoplication surgery on gland under tongue tendonatomies Tracheostomy status Social History household members: other details: Mother and is vent dependent housing: house Smoking Status: Never smoker second hand exposure: No alcohol intake: never substance use type: does not use ROS Review of Systems ROS Unobtainable: due to mental condition Physical Exam Const alert and no apparent distress Constitutional Narrative: Baseline neurological status HEENT normocephalic and head/scalp atraumatic HEENT Narrative: Macroglossia present Eyes PERRL Neck supple Neck Narrative: Tracheostomy site intact General: trachea midline Resp Auscultation: diminished lung sounds; Negative for rales, rhonchi or wheezes Cardio regular rate and regular rhythm GI normal to inspection, nondistended, normoactive bowel sounds Extremity Extremity Narrative: Contracted extremities with spastic quadriplegia General Extremity: Negative for clubbing or edema Skin no rashes or lesions noted Neuro Neuro Narrative: Baseline neurological status. Psych Mood & Affect: flat affect Lab / Micro Data Result Diagrams: 02/28/21 19:20 02/28/21 19:20 Labs: Laboratory Results - last 24 hr 02/28/21 02/28/21 02/28/21 19:18 19:20 19:20 WBC 7.1 RBC 3.72 L Hgb 11.8 L Hct 34.1 L MCV 91.7 MCH 31.7 MCHC 34.6 RDW Std Deviation 40.4 RDW Coeff of Anne 12.0 Plt Count 288 MPV 9.3 Immature Gran % (Auto) 0.400 Neut % (Auto) 62.2 Lymph % (Auto) 21.1 George % (Auto) 14.1 H Eos % (Auto) 1.8 Baso % (Auto) 0.4 Absolute Neuts (auto) 4.4 Absolute Lymphs (auto) 1.49 Nucleated RBC % 0 PT 12.7 INR 1.0 APTT 27.0 Sodium Potassium Chloride Carbon Dioxide Anion Gap BUN Creatinine Estim Creat Clear Calc Est GFR (MDRD) Af Amer Est GFR (MDRD) Non-Af BUN/Creatinine Ratio Glucose Lactic Acid Calcium Total Bilirubin AST ALT Alkaline Phosphatase Total Protein Albumin Globulin Albumin/Globulin Ratio Urine Color Yellow Urine Clarity Cloudy Urine pH 6.5 Ur Specific [place] 1.015 Urine Protein 100 H Urine Glucose (UA) 50 H Urine Ketones 5 H Urine Occult Blood 250 H Urine Nitrite Positive H Urine Bilirubin Negative Urine Urobilinogen Normal Ur Leukocyte Esterase 500 H Urine RBC 10-25 SEEN Urine WBC >100 SEEN Ur Squamous Epith Cells 0 SEEN Urine Bacteria 2+ Urine Mucus 0 SEEN 02/28/21 02/28/21 03/01/21 19:20 19:20 00:05 WBC RBC Hgb Hct MCV MCH MCHC RDW Std Deviation RDW Coeff of Anne Plt Count MPV Immature Gran % (Auto) Neut % (Auto) Lymph % (Auto) George % (Auto) Eos % (Auto) Baso % (Auto) Absolute Neuts (auto) Absolute Lymphs (auto) Nucleated RBC % PT INR APTT Sodium 130 L Potassium 3.6 Chloride 91 L Carbon Dioxide 30.0 Anion Gap 9 BUN 7 Creatinine 0.41 L Estim Creat Clear Calc 153.72 Est GFR (MDRD) Af Amer 234 Est GFR (MDRD) Non-Af 194 BUN/Creatinine Ratio 17.2 Glucose 87 Lactic Acid 2.7 H* 1.3 Calcium 9.6 Total Bilirubin 0.20 AST 14 L ALT 25 Alkaline Phosphatase 76 Total Protein 7.9 Albumin 3.9 Globulin 4.0 Albumin/Globulin Ratio 1.0 Urine Color Urine Clarity Urine pH Ur Specific [place] Urine Protein Urine Glucose (UA) Urine Ketones Urine Occult Blood Urine Nitrite Urine Bilirubin Urine Urobilinogen Ur Leukocyte Esterase Urine RBC Urine WBC Ur Squamous Epith Cells Urine Bacteria Urine Mucus Charges/Coding Visit Charges Inpatient E&M: 48655 Init Hosp L3
--- NOTE | 2021-03-01 07:23 | PN.HOSP_ITS ---
Subjective Subjective Patient seen and examined. She was admitted for UTI with failed outpatient therapy. She remains on ventilator, and is nonverbal. Unable to do review of systems. Father was by her bedside, and he mentioned that patient had had an ongoing UTI for 4-month which was thought to be due to UTI per culture results. She had been on oral antibiotics on outpatient basis but this had not worked well. 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 She has remained hemodynamically stable. Objective Data Objective Data Vital Signs: Vital Signs Temp Pulse Resp BP Pulse Ox 98.1 F 67 16 109/64 97 03/01/21 00:32 03/01/21 06:00 03/01/21 06:00 03/01/21 06:00 03/01/21 06:00 Oxygen Flow Rate (L/min) 3 Oxygen Delivery Method Mechanical Ventilator Weight: 102 lb 11.767 oz Body Mass Index (BMI) 23.8 Intake & Output: Intake and Output for Last 24 Hours 02/27/21 02/28/21 03/01/21 23:59 23:59 23:59 Intake Total 70 / 70 0 / 0 Output Total 0 / 0 Balance 70 / 70 0 / 0 Lab / Micro Data Result Diagrams: 02/28/21 19:20 02/28/21 19:20 Labs: Laboratory Results - last 24 hr 02/28/21 02/28/21 02/28/21 19:18 19:20 19:20 WBC 7.1 RBC 3.72 L Hgb 11.8 L Hct 34.1 L MCV 91.7 MCH 31.7 MCHC 34.6 RDW Std Deviation 40.4 RDW Coeff of Anne 12.0 Plt Count 288 MPV 9.3 Immature Gran % (Auto) 0.400 Neut % (Auto) 62.2 Lymph % (Auto) 21.1 [place] % (Auto) 14.1 H Eos % (Auto) 1.8 Baso % (Auto) 0.4 Absolute Neuts (auto) 4.4 Absolute Lymphs (auto) 1.49 Nucleated RBC % 0 PT 12.7 INR 1.0 APTT 27.0 Sodium Potassium Chloride Carbon Dioxide Anion Gap BUN Creatinine Estim Creat Clear Calc Est GFR (MDRD) Af Amer Est GFR (MDRD) Non-Af BUN/Creatinine Ratio Glucose Lactic Acid Calcium Total Bilirubin AST ALT Alkaline Phosphatase Total Protein Albumin Globulin Albumin/Globulin Ratio Urine Color Yellow Urine Clarity Cloudy Urine pH 6.5 Ur Specific [place] 1.015 Urine Protein 100 H Urine Glucose (UA) 50 H Urine Ketones 5 H Urine Occult Blood 250 H Urine Nitrite Positive H Urine Bilirubin Negative Urine Urobilinogen Normal Ur Leukocyte Esterase 500 H Urine RBC 10-25 SEEN Urine WBC >100 SEEN Ur Squamous Epith Cells 0 SEEN Urine Bacteria 2+ Urine Mucus 0 SEEN 02/28/21 02/28/21 03/01/21 19:20 19:20 00:05 WBC RBC Hgb Hct MCV MCH MCHC RDW Std Deviation RDW Coeff of Anne Plt Count MPV Immature Gran % (Auto) Neut % (Auto) Lymph % (Auto) [place] % (Auto) Eos % (Auto) Baso % (Auto) Absolute Neuts (auto) Absolute Lymphs (auto) Nucleated RBC % PT INR APTT Sodium 130 L Potassium 3.6 Chloride 91 L Carbon Dioxide 30.0 Anion Gap 9 BUN 7 Creatinine 0.41 L Estim Creat Clear Calc 153.72 Est GFR (MDRD) Af Amer 234 Est GFR (MDRD) Non-Af 194 BUN/Creatinine Ratio 17.2 Glucose 87 Lactic Acid 2.7 H* 1.3 Calcium 9.6 Total Bilirubin 0.20 AST 14 L ALT 25 Alkaline Phosphatase 76 Total Protein 7.9 Albumin 3.9 Globulin 4.0 Albumin/Globulin Ratio 1.0 Urine Color Urine Clarity Urine pH Ur Specific [place] Urine Protein Urine Glucose (UA) Urine Ketones Urine Occult Blood Urine Nitrite Urine Bilirubin Urine Urobilinogen Ur Leukocyte Esterase Urine RBC Urine WBC Ur Squamous Epith Cells Urine Bacteria Urine Mucus Physical Exam Const alert Constitutional Narrative: nonverbal due to cerebral palsy HEENT head/scalp atraumatic and moist oral mucous membranes Head and Scalp: normocephalic Eyes PERRL Resp normal respiratory effort Resp Narrative: on ventilator via tracheostomy Cardio regular rate, regular rhythm, S1 normal heart sound, S2 normal heart sound and no murmurs GI normal to inspection, nondistended, normoactive bowel sounds, soft to palpation, non-tender and non-distended GI Narrative: PEG tube in place Extremity normal to inspection Peripheral Pulses: Yes pulses 2+ throughout Skin no rashes or lesions noted Neuro Sensorium / Orientation: awake Psych affect normal Assessment & Plan Assessment/Plan (1) Complicated UTI (urinary tract infection): (2) Ureterolithiasis: (3) Recurrent UTI: PLAN: #Recurrent UTI * complicated by history of recurrent renal calculi * urine cultures in the past have shown ESBL E coli sensitive to Invanz * on IV invanz. * lactic acid was 2.7; will trend. * hydrate gently with IVF * await blood cultures * will discuss with mother about consulting urology * #Chronic respiratory failure due to cerebral palsy * on the ventilator via a tracheostomy tube * critical care on board DVT prophylaxis: lovenox Charges/Coding Visit Charges Inpatient E&M: 18650 Subs Hosp L3
[2021-03-01 08:20] LABS: Bedside Glucose 99 mg/dL (70-110)
--- NOTE | 2021-03-01 08:59 | CPS ---
Pt resting comfortably on home Ventilator w/3lpm O2 bled in.
[2021-03-01] MEDS: Enoxaparin 40 MG/0.4 ML Syringe SC (11:43)
--- NOTE | 2021-03-01 12:04 | NT.THERAPY_ITS ---
Medical Nutrition Therapy - History Nutrition Services has been consulted to:: Manage enteral nutrition Current diet/nutrition support order:: Continue Neocate Iesha as per home dilution and delivery~ 160 ml 4 times per day via feeding tube to provide estimated 900 calories per day (approx 42 kcal/oz) with contained amino acids and fluids. Family uses pump at home--discussed pump delivery with nurse if TF/bags compatible with hospital pumps otherwise bolus TF delivery 4 times per day. - Anthropometric Measurements Height:: 4 ft 7 in Weight:: 46.6 kg Body Mass Index (BMI):: 23.8 - Relevant Labs Relevant Labs:: RBC 3.72 M/mm3 (4.2-5.4) L 02/28/21 19:20 Hgb 11.8 g/dL (12.0-15.0) L 02/28/21 19:20 Hct 34.1 % (37-47) L 02/28/21 19:20 [place] % (Auto) 14.1 % (0-10) H 02/28/21 19:20 Sodium 130 mmol/L (136-145) L 02/28/21 19:20 Chloride 91 mmol/L (98-107) L 02/28/21 19:20 Creatinine 0.41 mg/dL (0.55-1.02) L 02/28/21 19:20 Lactic Acid 2.7 mmol/L (0.4-1.9) H* 02/28/21 19:20 AST 14 U/L (15-37) L 02/28/21 19:20 - Assessment Food and Nutrient Intake: Pt does not take food by mouth; per father's report of diluation practice of Neocate Jr appears that nutrition provide approximately 895 calories with required amino acids; Neocate iesha is an amino acid based formula and does not contain intact protein in addition to being a hypoallergenic formula which contains prebiotic fiber. Unable to assess physical nutrition status at this time. father reports good tolerance to TF support at home and desire to continue same. Pt with milk and soy food allergies. - Nutrition Diagnosis: Clinical Problem Swallowing Difficulty Clinical Problem - Etiology: related to cerebral palsy Clinical Problem - Signs/Symptoms: as evidenced by NPO and need for enteral nutrition support. Status: Active Problem - Protein Calorie Malnutrition Evidence of Malnutrition Exists: No - Nutrition Intervention Nutrition Prescription: Estimated nutrition needs~800-1000 kcal/day (25 kcal/Kg adj wt) and ~50-55 gm pro (1.5 gm pro/Kg adj wt). Estimated fluid needs~1000ml free water per day (27 ml/Kg adj wt). - Food / Nutrient Delivery Interventions Nutrition support ordered as / adjusted to:: Continue Neocate Iesha 160 ml 4 times per day as per home dilution to prevent wt loss. Will change diet to NPO. Will monitor TF tolerance, wt, labs and follow-up. Nutrition education provided?: No - MNT Monitoring Active Nutrition Patient: Yes Nutrition Status: Requires Follow Up 3-5 Days
[2021-03-01 12:11] LABS: Bedside Glucose 153 mg/dL (70-110)
[2021-03-01] MEDS: Insulin Lispro 100 UNIT/ML INSULN.PEN 8 UNIT SC (12:22)
[2021-03-01] MEDS: Baclofen 10 MG Tablet 30 MG GT ×2 (14:48→21:34)
[2021-03-01] MEDS: diazePAM 5 MG Tablet GT ×2 (14:48→21:34)
[2021-03-01] MEDS: Insulin Lispro 100 UNIT/ML INSULN.PEN SC ×2 (14:49→17:47)
--- NOTE | 2021-03-01 16:20 | CASEMGMT ---
HIREN WILSON ASSESSMENT Pt w/hx Cerebral Palsy, chronic trach/vent dependent since age 13, and has PEG. Pt is non-verbal and able to gesture yes/no responses. HIREN CM to room to meet with pt's mother for initial transition planning/care coordination assessment. HIREN WILSON introduced self and role at [facility]. Mother voices understanding and consents to assessment at this time. Pt resting in bed w/eyes closed during assessment and in no distress at this time. Care providers, pharmacy, and demographics verified/updated at this time. PCP: Dr Bermudez Specialists: Dr Jara--neurologist @ [facility], Dr Weiner--pulmonology, Dr Messina-endocrinology. Mother states she has been trying to find urologist for pt in the area. Dr Mckay has informed her they are unable to get transport cart/guernsey into her office, and Dr Taylor does not take ELIUD. Preferred Pharmacy: [facility] Retail Insurance: ELIUD Prescription Benefit: Yes LNOK: Parents: Rina and Mikey Montero Living Arrangements: Pt is total care. Patient lives with her parents who are caretakers for her. HHC: Pt is active w/[facility] in [place] and receives SN. Mother states a SN stays w/pt 4 days a week (Wed thru Sat): 8AM-4 PM one day a week and also 8 AM-6PM 3 days a week. Mother states she and her take turns caring for pt any time a SN is not present. Transportation: ambulance-[facility] is choice of parents. Mother aware [facility] is contracted w/[facility] and pt would most likely need to transfer home w/them. She asked if there was any way [facility] could transport pt home. She was made aware her preference would be passed along and [facility] would need to approve for [facility] to transport pt. She voices understanding. DME: Mother states they have all the DME needed. Mother wishes for pt to return home w/RANJANA w/[facility] and states has no concerns with pt going home at time of discharge. CM to follow for any further discharge planning/needs. Mother voices no further concerns/needs at this time. Advised her to ask for CM if any further questions/concerns/needs arise. Voices understanding. PLAN: Home w/RANJANA w/[facility] in [place]: SN. RANJANA order placed. [facility]: Phone/main office: . H/P faxed to [facility] at this time. Call placed to [facility] and they were notified of pt's admission to [facility]. Green sheet placed on chart for [facility] to be notified when pt discharged and D/C instructions and Summary faxed to them. Ervin BSN RN CM RN CM Note Intro role of CM to patient's father. Pt will be discharged today. Father did not know which Home Care patient used, but did have number for nurse. Call to nurse mac, updated that patient will be going home today. Transportation: DC PLAN: patient is discharged, HHC resumed through [facility] in [place].
[2021-03-01 17:36] LABS: Bedside Glucose 98 mg/dL (70-110)
[2021-03-01 17:54] LABS: Absolute Lymphocyte Count 1.59 X10^3/uL (0.83-4.51); Absolute Neutrophil Count 3.3 X10^3/uL (2.0-7.7); Basophil# 0.04 X10^3/uL; Basophil% 0.7 % (0-1); Eosinophil# 0.14 X10^3/uL; Eosinophils% 2.4 % (0-5); Hemoglobin 10.6 g/dL (12.0-15.0); Lymphocyte # 1.59 X10^3/ul (0.83-4.51); Lymphocyte % 27.1 % (19-41); Mean Corp Hgb Conc 34.2 g/dL (32-36); Mean Corpuscular Hgb 31.6 pg (27.0-32.0); Mean Corpuscular Volume 92.5 fL (81-99); Mean Platelet Vol. 9.3 fl (6.2-12.0); Monocyte% 13.7 % (0-10); NRBC Flagged by Analyzer 0 % (0-5); Neutrophil # 3.27 X10^3/uL (2.7-7.7); Neutrophil % 55.8 % (47-70); Platelet Count 272 K/mm3 (150-450); RBC Distribution Width SD 40.8 fl (35.1-43.9); Red Blood Count 3.35 M/mm3 (4.2-5.4); White Blood Count 5.9 K/mm3 (4.4-11.0)
[2021-03-01 18:10] LABS: Anion Gap 6 (5-15); BUN 5 mg/dL (7-18); BUN/Creat Ratio 17.7 RATIO (10-20); Calcium,Total 9.2 mg/dL (8.5-10.1); Chloride 101 mmol/L (98-107); Creatinine, Serum 0.28 mg/dL (0.55-1.02); EST Glomerular Filtration Rate 296 mL/min (>60); Est Glom Filt Rate - Afr Amer 359 mL/min (>60); Estimated Creatinine Clearance 216.13 ml/min; Glucose 86 mg/dL (74-106); Potassium 3.7 mmol/L (3.5-5.1); Sodium Level 136 mmol/L (136-145)
[2021-03-01] MEDS: Albuterol 2.5 MG/3 ML VIAL.NEB. INHALATION (19:10)
[2021-03-01] MEDS: Budesonide Respules 0.5 MG/2 ML AMPUL.NEB. INHALATION (19:10)
--- NOTE | 2021-03-01 21:12 | CPS ---
Pt.'s home ventilator assessed at bedside with mother. The pt. is synchronistic with the ventilator. The mother and I talked in regards to pt.'s needs, and she informed me that she will notify me if needed during the night. Pt. handled her aerosol tx. fine, and her breath sounds improved. Mother and father insist that they do most of the trach care for their daughter.
[2021-03-01] MEDS: Montelukast 10 MG Tablet GT (21:34)
[2021-03-01] MEDS: diazePAM 2 MG Tablet GT (21:34)
--- NOTE | 2021-03-01 23:48 | NURSING ---
Report received from Vanessa MARADIAGA, this RN is assuming care of the pt. at this time.
[2021-03-02] VITALS (10 sets, daily range): BP systolic 108–145; BP diastolic 59–76; PULSE 61–102; RESP 14–18; TEMP 36.7–37.2; O2SAT 97–100
[2021-03-02 00:51] LABS: Bedside Glucose 109 mg/dL (70-110)
[2021-03-02] MEDS: 0.9% Normal Saline 1,000 ML 75 ML IV ×3 (06:20→21:13)
[2021-03-02] MEDS: diazePAM 5 MG Tablet GT ×3 (06:21→21:12)
[2021-03-02] MEDS: Baclofen 10 MG Tablet 30 MG GT ×3 (06:21→21:11)
[2021-03-02] MEDS: diazePAM 2 MG Tablet GT ×2 (06:21→21:11)
[2021-03-02] MEDS: Budesonide Respules 0.5 MG/2 ML AMPUL.NEB. INHALATION ×2 (07:20→18:49)
[2021-03-02] MEDS: Albuterol 2.5 MG/3 ML VIAL.NEB. INHALATION ×2 (07:20→18:49)
[2021-03-02] MEDS: Insulin Lispro 100 UNIT/ML INSULN.PEN SC ×4 (07:59→17:07)
[2021-03-02 08:10] LABS: Bedside Glucose 97 mg/dL (70-110)
[2021-03-02 08:48] LABS: Absolute Neutrophil Count 3.1 X10^3/uL (2.0-7.7); Basophil# 0.01 X10^3/uL; Basophil% 0.2 % (0-1); Eosinophil# 0.08 X10^3/uL; Eosinophils% 1.7 % (0-5); Hematocrit 32.5 % (37-47); Hemoglobin 10.9 g/dL (12.0-15.0); Lymphocyte % 23.9 % (19-41); Mean Corp Hgb Conc 33.5 g/dL (32-36); Mean Corpuscular Hgb 31.9 pg (27.0-32.0); Mean Platelet Vol. 9.2 fl (6.2-12.0); Monocyte# 0.29 X10^3/uL; Monocyte% 6.3 % (0-10); NRBC Flagged by Analyzer 0 % (0-5); Neutrophil # 3.11 X10^3/uL (2.7-7.7); Neutrophil % 67.5 % (47-70); Platelet Count 237 K/mm3 (150-450); RBC Distribution Width CV 12.6 % (11.6-14.6); RBC Distribution Width SD 43.8 fl (35.1-43.9); Red Blood Count 3.42 M/mm3 (4.2-5.4); White Blood Count 4.6 K/mm3 (4.4-11.0)
[2021-03-02 09:07] LABS: Anion Gap 8 (5-15); BUN 4 mg/dL (7-18); BUN/Creat Ratio 11.8 RATIO (10-20); Calcium,Total 9.2 mg/dL (8.5-10.1); Chloride 109 mmol/L (98-107); Creatinine, Serum 0.34 mg/dL (0.55-1.02); EST Glomerular Filtration Rate 240 mL/min (>60); Est Glom Filt Rate - Afr Amer 290 mL/min (>60); Estimated Creatinine Clearance 175.69 ml/min; Glucose 138 mg/dL (74-106); Potassium 4.1 mmol/L (3.5-5.1); Sodium Level 142 mmol/L (136-145)
[2021-03-02] MEDS: Ferrous Sulfate 300 MG/5 ML UDC GT (10:43)
[2021-03-02] MEDS: Cholecalciferol (VIT D3) 25 MCG TABLET (1,000 UNITS) 100 MCG GT (10:45)
[2021-03-02] MEDS: Enoxaparin 40 MG/0.4 ML Syringe SC (10:46)
--- NOTE | 2021-03-02 12:21 | PN.HOSP_ITS ---
Subjective Subjective Patient seen and examined. Follows by her bedside. He had no active complaints. She had had an uneventful night. Review of systems otherwise negative. She has remained hemodynamically stable. Objective Data Objective Data Vital Signs: Vital Signs Temp Pulse Resp BP Pulse Ox 98.4 F 102 H 18 145/76 H 100 03/02/21 11:28 03/02/21 11:28 03/02/21 11:28 03/02/21 11:28 03/02/21 11:28 Oxygen Flow Rate (L/min) 3 Oxygen Delivery Method Mechanical Ventilator Weight: 101 lb 6.602 oz Body Mass Index (BMI) 23.8 Intake & Output: Intake and Output for Last 24 Hours 02/28/21 03/01/21 03/02/21 23:59 23:59 23:59 Intake Total 70 / 70 1556.67 / 1556.67 1120 / 1120 Output Total 0 / 0 Balance 70 / 70 1556.67 / 1556.67 1120 / 1120 Lab / Micro Data Result Diagrams: 03/02/21 08:35 03/02/21 08:35 Labs: Laboratory Results - last 24 hr 03/01/21 03/01/21 03/01/21 14:18 17:22 17:40 WBC 5.9 RBC 3.35 L Hgb 10.6 L Hct 31.0 L MCV 92.5 MCH 31.6 MCHC 34.2 RDW Std Deviation 40.8 RDW Coeff of Anne 12.0 Plt Count 272 MPV 9.3 Immature Gran % (Auto) 0.300 Neut % (Auto) 55.8 Lymph % (Auto) 27.1 Pepin % (Auto) 13.7 H Eos % (Auto) 2.4 Baso % (Auto) 0.7 Absolute Neuts (auto) 3.3 Absolute Lymphs (auto) 1.59 Nucleated RBC % 0 Sodium Potassium Chloride Carbon Dioxide Anion Gap BUN Creatinine Estim Creat Clear Calc Est GFR (MDRD) Af Amer Est GFR (MDRD) Non-Af BUN/Creatinine Ratio Glucose Calcium POC Glucose 109 98 03/01/21 03/02/21 03/02/21 17:40 07:58 08:35 WBC 4.6 RBC 3.42 L Hgb 10.9 L Hct 32.5 L MCV 95.0 MCH 31.9 MCHC 33.5 RDW Std Deviation 43.8 RDW Coeff of Anne 12.6 Plt Count 237 MPV 9.2 Immature Gran % (Auto) 0.400 Neut % (Auto) 67.5 Lymph % (Auto) 23.9 Pepin % (Auto) 6.3 Eos % (Auto) 1.7 Baso % (Auto) 0.2 Absolute Neuts (auto) 3.1 Absolute Lymphs (auto) 1.10 Nucleated RBC % 0 Sodium 136 Potassium 3.7 Chloride 101 Carbon Dioxide 29.0 Anion Gap 6 BUN 5 L Creatinine 0.28 L Estim Creat Clear Calc 216.13 Est GFR (MDRD) Af Amer 359 Est GFR (MDRD) Non-Af 296 BUN/Creatinine Ratio 17.7 Glucose 86 Calcium 9.2 POC Glucose 97 03/02/21 08:35 WBC RBC Hgb Hct MCV MCH MCHC RDW Std Deviation RDW Coeff of Anne Plt Count MPV Immature Gran % (Auto) Neut % (Auto) Lymph % (Auto) Pepin % (Auto) Eos % (Auto) Baso % (Auto) Absolute Neuts (auto) Absolute Lymphs (auto) Nucleated RBC % Sodium 142 Potassium 4.1 Chloride 109 H Carbon Dioxide 25.0 Anion Gap 8 BUN 4 L Creatinine 0.34 L Estim Creat Clear Calc 175.69 Est GFR (MDRD) Af Amer 290 Est GFR (MDRD) Non-Af 240 BUN/Creatinine Ratio 11.8 Glucose 138 H Calcium 9.2 POC Glucose Micro: Microbiology 02/28/21 19:18 Urine, Catheterized Urine Culture - Preliminary Presumptive E. coli Physical Exam Const alert Constitutional Narrative: nonverbal due to cerebral palsy HEENT head/scalp atraumatic and moist oral mucous membranes Head and Scalp: normocephalic Eyes PERRL Resp normal respiratory effort Resp Narrative: on ventilator via tracheostomy Cardio regular rate, regular rhythm, S1 normal heart sound, S2 normal heart sound and no murmurs GI normal to inspection, nondistended, normoactive bowel sounds, soft to palpation, non-tender and non-distended GI Narrative: PEG tube in place Extremity normal to inspection Extremity Narrative: contractures of UEs and LEs Peripheral Pulses: Yes pulses 2+ throughout Skin no rashes or lesions noted Neuro Sensorium / Orientation: awake Psych affect normal Assessment & Plan Assessment/Plan (1) Complicated UTI (urinary tract infection): (2) Ureterolithiasis: (3) Recurrent UTI: PLAN: #Recurrent UTI * complicated by history of recurrent renal calculi * urine cultures grew ESBL E coli * on IV invanz. * await blood cultures * I did discuss presence of staghorn calculi with Dr Anaya, per mother;s request. Dr. Delisa Schuler stated that she does not treat staghorn calculi and had recommended to the mother earlier that patient should be seen up in [place]. * will consult ID to help determined if she needs a prolonged course of IV antibiotics on outpatient basis as there are limited oral options. * #Stag horn ureteric calcui * patient will need to follow up with urologist in [place] for management. * #Chronic respiratory failure due to cerebral palsy * on the ventilator via a tracheostomy tube * critical care on board DVT prophylaxis: lovenox For likely DC tomorrow. Charges/Coding Visit Charges Inpatient E&M: 65415 Subs Hosp L2
[2021-03-02 14:25] LABS: Bedside Glucose 129 mg/dL (70-110)
[2021-03-02 14:25] LABS: Bedside Glucose 101 mg/dL (70-110)
[2021-03-02 17:30] LABS: Bedside Glucose 86 mg/dL (70-110)
[2021-03-02] MEDS: Acetaminophen 325 MG Tablet 650 MG PO (17:45)
[2021-03-02] MEDS: Montelukast 10 MG Tablet GT (21:11)
[2021-03-03] VITALS (10 sets, daily range): BP systolic 105–117; BP diastolic 54–84; PULSE 61–100; RESP 14–20; TEMP 36.6–36.7; O2SAT 100
[2021-03-03] MEDS: diazePAM 5 MG Tablet GT ×3 (06:01→20:55)
[2021-03-03] MEDS: Baclofen 10 MG Tablet 30 MG GT ×3 (06:01→20:55)
[2021-03-03] MEDS: diazePAM 2 MG Tablet GT ×2 (06:01→20:55)
[2021-03-03] MEDS: Budesonide Respules 0.5 MG/2 ML AMPUL.NEB. INHALATION ×2 (07:23→20:06)
[2021-03-03] MEDS: Albuterol 2.5 MG/3 ML VIAL.NEB. INHALATION ×2 (07:23→20:06)
[2021-03-03] MEDS: Insulin Lispro 100 UNIT/ML INSULN.PEN SC ×3 (08:35→18:13)
[2021-03-03 08:40] LABS: Bedside Glucose 95 mg/dL (70-110)
[2021-03-03] MEDS: 0.9% Normal Saline 1,000 ML 75 ML IV ×2 (10:59→21:03)
--- NOTE | 2021-03-03 11:03 | CASEMGMT ---
Addendum entered by Mey Weinstein 03/03/21 16:10: This RN KATIE spoke with Yana at [facility] and she states she is working on referral. Yana is updated to find [facility] SN as well, voices understanding. CM to follow. Carlotta BLACK TOP MACHINE OPERATOR, pt's mother, and Yana at [facility] aware that pt cannot d/c until tomorrow d/t set up of iv antibx/HHC, voice understanding. Moose MARADIAGA CM Addendum entered by Mey Weinstein 03/03/21 14:31: Per Dr. Bettencourt, pt will need to go home on IV Ertapenem until she can get kidney stone removed. Call to [facility] and they do not have an RN to follow for iv antibx. Pt's mother updated, voices understanding and is ok with referral to [facility] and for them to set up HHC SN as well. Pt's mother is ok with giving IV antibx once taught. Referral faxed to [facility]. CM to follow. Moose MARADIAGA CM Original Note: Per therapy, pt could benefit from [facility] therapy and splint for her hands, which she has had in the past. Call to [facility] and pt is active with [facility] and they do not have a contract for any therapist. This RN CM to room and pt's mom states that she and [facility] nurses do therapy with pt daily and declines need for any further therapy. Pt's mom also states that she already has a call out to pt's PCP in regards to splints and voices no further questions/concerns/needs at this time. ID is consulted and CM to follow. Moose MARADIAGA CM
[2021-03-03] MEDS: Enoxaparin 40 MG/0.4 ML Syringe SC (11:12)
[2021-03-03] MEDS: Ferrous Sulfate 300 MG/5 ML UDC GT (11:12)
[2021-03-03] MEDS: Cholecalciferol (VIT D3) 25 MCG TABLET (1,000 UNITS) 100 MCG GT (11:12)
[2021-03-03 11:21] LABS: Bedside Glucose 111 mg/dL (70-110)
--- NOTE | 2021-03-03 14:45 | PCM.CONS.GEN ---
Assessment & Plan Assessment/Plan (1) Staghorn renal calculus: (2) Recurrent UTI: (3) Urinary tract infection due to extended-spectrum beta lactamase (ESBL) producing Escherichia coli: PLAN: Will be difficult for this infection to clear while stone is in place. Recommend urology eval who can address this issue. Sounds like referral to [facility] as an outpt is being arranged. Responding to ertapenem, midline in place, will write for 4 weeks with weekly bmp,cbc,LFT, and hopefully stone can be addressed in the meantime. Encouraged her and her mother to get covid vaccine. ID followup in 2 weeks. Will follow, thank you, d/w primary team and machine adjuster leader case trim (4) Cerebral palsy: (5) Chronic respiratory failure: QUALIFIERS: Respiratory failure complication: hypoxia Qualified Code(s): J96.11 - Chronic respiratory failure with hypoxia HPI Consult Data Date of Consult: 03/03/21 HPI Narrative HPI Narrative: MANDY RIVERA, is a 30 F with cerebral palsy, vent dependent, has been having uti for past few months despite multiple courses of different abx. Developed much worse abd/flank pain, came to ED, staghorn stone seen, ucx with esbl ecoli, on ertapenem, pain improved, no fever here. Pt unable to provide history or ROS, mother gave history at bedside. Neither have gotten covid vaccine. Full ROS performed and neg except as noted above. [facility] Medical History Allergic rhinitis due to other allergen Amenorrhea Bronchiectasis without acute exacerbation Bronchitis C. difficile diarrhea Cellulitis of groin Cerebral palsy Chronic respiratory failure Diabetes Fungal infection of the groin Hyperglycemia Irregular menstrual cycle Lactic acid acidosis Malignant hyperthermia Mild mental retardation MRSA (methicillin resistant Staphylococcus aureus) Neuromuscular scoliosis Paraplegia Pneumonia Respiratory acidosis Seizure Severe sepsis Spastic hemiplegic cerebral palsy Streptococcus pneumoniae Thrush Visual disturbance Vitamin D deficiency Home Medications baclofen 30 mg GT TID 09/02/13 [History Last Taken 01/10/19] diazepam 5 mg/mL oral concentrate 5 mg PO DAILY ml 08/28/17 [History Last Taken 01/10/19] diazepam 5 mg/mL oral concentrate 7 mg PO BID ml 08/28/17 [History Last Taken 01/10/19] oxcarbazepine 300 mg/5 mL (60 mg/mL) oral suspension 8 ml GT BID ml 08/28/17 [History Last Taken 01/24/18 14:00] levalbuterol HCl 1.25 mg INHALATION BID 05/07/20 [History Last Taken Unknown] insulin aspart U-100 100 unit/mL (3 mL) subcutaneous pen 8 units SQ 4X/DAY 09/20/20 [History Last Taken Unknown] insulin aspart U-100 See Protocol SC 5X/DAY 10/23/20 [History Last Taken Unknown] multivit-folic acid-herbal 275 10 ml GT DAILY 10/23/20 [History Last Taken Unknown] montelukast 10 mg tablet 10 mg GT QPM #30 tab 11/06/20 [Rx Last Taken Unknown] acidophilus-pectin, citrus 1 tab GT DAILY 11/12/20 [History Last Taken Unknown] cholecalciferol (vitamin D3) 4,000 unit GT DAILY 11/12/20 [History Last Taken Unknown] guaifenesin 100 mg/5 mL oral liquid 200 mg GT Q4H PRN PRN #473 ml 12/06/20 [Rx Last Taken Unknown] cetirizine 1 mg/mL oral solution 10 mg PO QDAY PRN #480 ml 01/23/21 [Rx Last Taken Unknown] diphenhydramine HCl [Benadryl] 12.5 mg PO BID PRN PRN 02/28/21 [History Last Taken Unknown] ferrous sulfate 60 mg PO DAILY 02/28/21 [History Last Taken Unknown] fexofenadine 60 mg PO BID PRN PRN 02/28/21 [History Last Taken Unknown] fluticasone propionate [Flovent] 2 puff INHALATION BID 02/28/21 [History Last Taken Unknown] ertapenem 1 g IV Q24H 28 Days #28 ea 03/03/21 [Rx Last Taken Unknown] Allergy/AdvReac Type Severity Reaction Status Date / Time linezolid Allergy Severe Other - Verified 02/28/21 18:34 seizure & coma vancomycin Allergy Severe Other - Verified 02/28/21 18:34 kidney failure tobramycin Allergy Intermediate Other - Verified 02/28/21 18:34 turned beet red nafcillin Allergy Mild Rash Verified 02/28/21 18:34 benzoin Allergy Unknown Rash Verified 02/28/21 18:34 milk Allergy Unknown Other Verified 02/28/21 18:34 soy Allergy Unknown Other Verified 02/28/21 18:34 polyethylene glycol 3350 AdvReac Unknown Hives Verified 02/28/21 18:34 [From Miralax] Family History Grandmother Cancer maternal Other Adopted Surgical History derotatox ostomies eyes straightened Gastrostomy tube in place H/O spinal fusion Presence of intrathecal baclofen pump rods to back Status post Jorje fundoplication surgery on gland under tongue tendonatomies Tracheostomy status Social History household members: other details: Mother and is vent dependent housing: house Smoking Status: Never smoker second hand exposure: No alcohol intake: never substance use type: does not use Physical Exam Const no apparent distress General Appearance: cooperative HEENT head/scalp atraumatic Eyes PERRL and EOMs intact bilaterally Neck supple and No nodes Neck Narrative: trach in place Resp normal air movement and clear to auscultation bilaterally Cardio regular rate and regular rhythm GI normal to inspection, nondistended, normoactive bowel sounds GI Narrative: mild sorenes Extremity no clubbing, cyanosis or edema Skin no rashes or lesions noted Lab / Micro Data Result Diagrams: 03/02/21 08:35 03/02/21 08:35 Labs: Laboratory Results - last 24 hr 03/02/21 03/03/21 03/03/21 17:05 08:32 11:13 POC Glucose 86 95 111 H Micro: Microbiology 02/28/21 19:18 Urine Culture - Final Urine, Catheterized Presumptive E. coli 03/01/21 17:40 Blood Culture - Preliminary Blood Culture (Wb) - Venous No growth in 48 hours. 02/28/21 19:20 Blood Culture - Preliminary Blood Culture (Wb) - Venous No growth in 48 hours.
--- NOTE | 2021-03-03 14:52 | PCM.PN.HOSP ---
Documented by User: Lora Castellano STUDENT SUCCESS COUNSELOR, STUDENT SUCCESS COUNSELOR-C 03/03/21 15:08 Subjective Subjective Patient seen and examined. Father at bedside. Discussed plan of care. Awaiting IV antibiotic setup. Objective Data Objective Data Vital Signs: Vital Signs Temp Pulse Resp BP Pulse Ox 98.1 F 72 14 105/64 100 03/03/21 11:04 03/03/21 11:04 03/03/21 11:04 03/03/21 11:04 03/03/21 11:04 Oxygen Flow Rate (L/min) 3 Oxygen Delivery Method Trach Collar Weight: 106 lb 0.677 oz Body Mass Index (BMI) 23.8 Intake & Output: Intake and Output for Last 24 Hours 03/01/21 03/02/21 03/03/21 23:59 23:59 23:59 Intake Total 1556.67 / 1556.67 2171.25 / 2171.25 1000 / 1000 Output Total 0 / 0 Balance 1556.67 / 1556.67 2171.25 / 2171.25 1000 / 1000 Lab / Micro Data Result Diagrams: 03/02/21 08:35 03/02/21 08:35 Labs: Laboratory Results - last 24 hr 03/02/21 03/03/21 03/03/21 17:05 08:32 11:13 POC Glucose 86 95 111 H Micro: Microbiology 02/28/21 19:18 Urine, Catheterized Urine Culture - Final Presumptive E. coli 03/01/21 17:40 Blood Culture (Wb) - Venous Blood Culture - Preliminary No growth in 48 hours. 02/28/21 19:20 Blood Culture (Wb) - Venous Blood Culture - Preliminary No growth in 48 hours. Physical Exam Const alert, oriented x3 and no apparent distress Orientation / Consciousness: awake, oriented to person, oriented to place and oriented to time Nutritional Appearance: cachectic HEENT normocephalic and moist oral mucous membranes Eyes PERRL, EOMs intact bilaterally and conjunctivae normal Neck no lymphadenopathy Resp normal respiratory effort and clear to auscultation bilaterally Cardio regular rate, regular rhythm and no murmurs Peripheral Pulses: pulses 2+ throughout GI normal to inspection, nondistended, normoactive bowel sounds, non-tender and non-distended Extremity normal to inspection Extremity Narrative: Upper and lower extremity contractures Skin no rashes or lesions noted Lesions: no lesions Rashes: no rashes Trauma: no lacerations or abrasions Neuro CN's II-XII intact bilaterally, no focal motor deficits, no sensory deficits noted and deep tendon reflexes 2+ bilaterally Psych mental status grossly normal and affect normal Assessment & Plan Assessment/Plan (1) Complicated UTI (urinary tract infection): (2) Staghorn renal calculus: (3) Cerebral palsy: QUALIFIERS: Cerebral palsy type: unspecified type Qualified Code(s): G80.9 - Cerebral palsy, unspecified PLAN: 1. Acute recurrent complicated UTI-ID consulted. Cultures growing ESBL E. coli. Blood cultures negative. Plan for IV ertapenem at discharge until staghorn calculi are addressed. Awaiting outpatient IV antibiotics set up. 2. Staghorn calculi- will make outpatient referral to [facility] [facility] vs [facility] urology pending who can accept patient quickest. 3. Chronic respiratory failure/hemiplegia/seizure disorder/intellectual disability secondary to cerebral palsy-on trach/ventilator/PEG tube. Home support in place. 4. History of C. difficile 5. Type 2 diabetes [id number] with sliding scale insulin. Continue home insulin regimen. DVT prophylaxis-Lovenox subcu Discharge planning: Anticipate discharge 03/04/2021 pending home IV antibiotic set up. This patient was seen by DAX Delgadillo under the supervision of Dr. Barragan. Documented by User: Dr. Maximino Barragan MD 03/03/21 16:44 Objective Data Lab / Micro Data Result Diagrams: 03/02/21 08:35 03/02/21 08:35 Charges/Coding Addendum Addendum: Dr. Barragan: I personally reviewed the chart and examined the patient, and agree with the above findings. 30-year-old female with cerebral palsy who is trached and pegged presented to the hospital with UTI in the setting of staghorn calculus. Infectious disease recommends IV Invanz for 4 weeks no she to follow-up with urology in [place] for management of staghorn calculus. Unfortunately we are having difficulty setting up the IV antibiotics and will evaluate for discharge in the morning. Visit Charges Inpatient E&M: 16719 Subs Hosp L2
--- NOTE | 2021-03-03 18:42 | NURSING ---
Parents giving home tube feeds throughout day, pts tolerating well.
[2021-03-03] MEDS: Montelukast 10 MG Tablet GT (20:55)
[2021-03-03] MEDS: Acetaminophen 325 MG Tablet 650 MG PO (21:28)
[2021-03-04] VITALS (9 sets, daily range): BP systolic 97–150; BP diastolic 70–83; PULSE 51–103; RESP 15–19; TEMP 36.8–37.1; O2SAT 98–100
[2021-03-04] MEDS: diazePAM 2 MG Tablet GT (05:41)
[2021-03-04] MEDS: Baclofen 10 MG Tablet 30 MG GT ×2 (05:41→14:22)
[2021-03-04] MEDS: diazePAM 5 MG Tablet GT ×2 (05:41→14:22)
[2021-03-04] MEDS: Albuterol 2.5 MG/3 ML VIAL.NEB. INHALATION (07:30)
[2021-03-04] MEDS: Budesonide Respules 0.5 MG/2 ML AMPUL.NEB. INHALATION (07:30)
[2021-03-04 07:33] LABS: Absolute Lymphocyte Count 1.35 X10^3/uL (0.83-4.51); Absolute Neutrophil Count 2.9 X10^3/uL (2.0-7.7); Basophil# 0.02 X10^3/uL; Basophil% 0.4 % (0-1); Eosinophils% 2.1 % (0-5); Hemoglobin 10.8 g/dL (12.0-15.0); Lymphocyte # 1.35 X10^3/ul (0.83-4.51); Lymphocyte % 28.8 % (19-41); Mean Corp Hgb Conc 32.7 g/dL (32-36); Mean Corpuscular Hgb 31.8 pg (27.0-32.0); Mean Corpuscular Volume 97.1 fL (81-99); Mean Platelet Vol. 9.4 fl (6.2-12.0); Monocyte# 0.34 X10^3/uL; Monocyte% 7.2 % (0-10); NRBC Flagged by Analyzer 0 % (0-5); Neutrophil # 2.86 X10^3/uL (2.7-7.7); Neutrophil % 61.1 % (47-70); Platelet Count 229 K/mm3 (150-450); RBC Distribution Width CV 12.3 % (11.6-14.6); RBC Distribution Width SD 43.8 fl (35.1-43.9); White Blood Count 4.7 K/mm3 (4.4-11.0)
[2021-03-04 08:23] LABS: Anion Gap 7 (5-15); BUN 4 mg/dL (7-18); BUN/Creat Ratio 12.5 RATIO (10-20); Calcium,Total 9.2 mg/dL (8.5-10.1); Chloride 107 mmol/L (98-107); Creatinine, Serum 0.32 mg/dL (0.55-1.02); EST Glomerular Filtration Rate 255 mL/min (>60); Est Glom Filt Rate - Afr Amer 309 mL/min (>60); Estimated Creatinine Clearance 203.31 ml/min; Glucose 88 mg/dL (74-106); Sodium Level 142 mmol/L (136-145)
[2021-03-04] MEDS: Insulin Lispro 100 UNIT/ML INSULN.PEN SC ×2 (08:34→11:22)
[2021-03-04 08:38] LABS: Bedside Glucose 81 mg/dL (70-110)
[2021-03-04 08:39] LABS: Bedside Glucose 69 mg/dL (70-110)
[2021-03-04 08:45] LABS: Bedside Glucose 104 mg/dL (70-110)
[2021-03-04] MEDS: Enoxaparin 40 MG/0.4 ML Syringe SC (09:45)
[2021-03-04] MEDS: Cholecalciferol (VIT D3) 25 MCG TABLET (1,000 UNITS) 100 MCG GT (09:45)
[2021-03-04] MEDS: Ferrous Sulfate 300 MG/5 ML UDC GT (09:45)
[2021-03-04] MEDS: 0.9% Normal Saline 1,000 ML 75 ML IV (09:53)
--- NOTE | 2021-03-04 10:26 | PCM.PN.ID ---
Physical Exam Narrative Doing well this AM, father at bedside. No fever. Const no apparent distress Resp normal air movement and clear to auscultation bilaterally Cardio regular rate and regular rhythm GI normal to inspection, nondistended, normoactive bowel sounds Skin no rashes or lesions noted ID ID: Route of nutrition/ use of supplements: [] Nutritional Intake: [] IV Site: [] Owens Catheter: [] Assessment & Plan Assessment/Plan (1) Staghorn renal calculus: (2) Recurrent UTI: (3) Urinary tract infection due to extended-spectrum beta lactamase (ESBL) producing Escherichia coli: PLAN: Will be difficult for this infection to clear while stone is in place. Recommend urology eval who can address this issue. Sounds like referral to [facility] as an outpt is being arranged. Responding to ertapenem, midline in place, wrote for 4 weeks with weekly bmp,cbc,LFT, and hopefully stone can be addressed in the meantime. Encouraged her and her mother to get covid vaccine. ID followup in 2 weeks. Will follow (4) Cerebral palsy: (5) Chronic respiratory failure: QUALIFIERS: Respiratory failure complication: hypoxia Qualified Code(s): J96.11 - Chronic respiratory failure with hypoxia
--- NOTE | 2021-03-04 11:07 | CASEMGMT ---
This RN CM received call from Yana at [facility] and she states she is still working on getting HHC set up for pt and will notify this RN CM when she does. Per Yana, she has tried 11 HHC agencies without success. CM to follow. Moose MARADIAGA CM
[2021-03-04 11:36] LABS: Bedside Glucose 91 mg/dL (70-110)
--- NOTE | 2021-03-04 11:52 | DCINST_ITS ---
Discharge Instructions Diet Discharge Diet: - (Resume home tube feed regimen) Activity Discharge Activity: Return to Normal Activity Dressing / Incision Call your doctor if you observe: Fever of 101 or Higher, Shortness of breath, Dizziness and Chest pain Follow Up Care Test Results: Test results from this visit will be discussed in further detail at your follow-up appointment, if applicable. Discharge Plan Admission Admit Date/Time: 02/28/21 20:45 Primary Reason for Your Visit: complicated UTI, staghorn calculi Attending Provider: Maximino Barragan Primary Care Provider: Sandra Bermudez Consulting Providers: Landry Valenzuela ; Rafa Bettencourt Discharge Orders/Prescriptions Prescriptions: New ertapenem 1 gram Recon Soln 1 g IV Q24H 28 Days Qty: 28 RF: 0 Continued diazepam 5 mg/mL oral concentrate 5 mg/mL concentrate 7 mg PO BID RF: 0 diazepam 5 mg/mL oral concentrate 5 mg/mL concentrate 5 mg PO DAILY RF: 0 oxcarbazepine [Trileptal] 300 mg/5 mL (60 mg/mL) suspension 8 ml GT BID RF: 0 guaifenesin 100 mg/5 mL liquid 200 mg GT Q4H PRN PRN (Reason: thick secretions) Qty: 473 RF: 2 insulin aspart U-100 100 unit/mL (3 mL) insulin pen 8 units SQ 4X/DAY RF: 0 montelukast 10 mg tablet 10 mg GT QPM Qty: 30 RF: 6 baclofen 20 MG tablet 30 mg GT TID RF: 0 levalbuterol HCl 1.25 MG/3 ML solution for nebulization 1.25 mg INHALATION BID RF: 0 multivit-folic acid-herbal 275 480 ML liquid 10 ml GT DAILY RF: 0 insulin aspart U-100 100 UNITS/ML insulin pen See Protocol units SC 5X/DAY RF: 0 cholecalciferol (vitamin D3) 2,000 UNIT capsule 4,000 unit GT DAILY RF: 0 acidophilus-pectin, citrus 1 TABLET tablet 1 tab GT DAILY RF: 0 diphenhydramine HCl 12.5 mg/5 mL Elixir 12.5 mg PO BID PRN PRN (Reason: Secretions) RF: 0 fluticasone propionate 44 mcg/actuation Hfa Aerosol Inhaler 2 puff INHALATION BID RF: 0 fexofenadine 30 mg/5 mL Suspension 60 mg PO BID PRN PRN (Reason: Allergy Symptoms) RF: 0 ferrous sulfate 15 mg iron (75 mg)/mL Syringe 60 mg PO DAILY RF: 0 cetirizine [Children's Zyrtec Allergy] 1 mg/mL solution 10 mg PO QDAY PRN (Reason: allergy symptoms) Qty: 480 RF: 6 Referrals / Follow Up: Urology, [place] [Other] - See Referral Note (As soon as possible. ) Sandra Bermudez DO [Primary Care Provider] - In 1 Week Disposition Disposition (needs filled in before D/C Order can be placed): Home Health Service
--- NOTE | 2021-03-04 12:05 | PCM.DC.SUM ---
Documented by User: Lora Castellano NP, INSULATION WORKER FURNACE INSTALLER-C 03/04/21 12:11 Providers Date of Admission: 02/28/21 Date of Discharge: 03/04/21 Primary Care Physician: Dr. Sandra Bermudez DO Consultations 03/01/21 00:33 Consult: Trailer Rental Clerk / Pulmonary Medicine Routine Consulting Provider: Landry Valenzuela Reason for Consult: UTI EMERGENT Consult: No MD Notified: Yes Date Notified: 02/28/21 Time Notified: 07:31 Method of Notification: Verbal 03/02/21 15:49 Consult: Infectious Disease Routine Consulting Provider: Rafa Bettencourt Reason for Consult: recurrent UTI with ESBL E coli EMERGENT Consult: No MD Notified: Yes Date Notified: 03/02/21 Time Notified: 06:23 Method of Notification: Answering Service Reason For Visit: COMPLICATED UTI Diagnosis Discharge Diagnosis (1) Staghorn renal calculus: Status: Acute Code(s): N20.0 - Calculus of kidney (2) Recurrent UTI: Status: Acute Code(s): N39.0 - Urinary tract infection, site not specified (3) Urinary tract infection due to extended-spectrum beta lactamase (ESBL) producing Escherichia coli: Status: Acute Code(s): N39.0 - Urinary tract infection, site not specified; B96.29 - Other Escherichia coli [E. coli] as the cause of diseases classified elsewhere; Z16.12 - Extended spectrum beta lactamase (ESBL) resistance (4) Cerebral palsy: Status: Acute Code(s): G80.9 - Cerebral palsy, unspecified (5) Chronic respiratory failure: Status: Chronic Code(s): J96.10 - Chronic respiratory failure, unspecified whether with hypoxia or hypercapnia Qualifiers: Respiratory failure complication: hypoxia Qualified Code(s): J96.11 - Chronic respiratory failure with hypoxia Medications at Discharge Home Medications baclofen 30 mg GT TID 09/02/13 diazepam 5 mg/mL oral concentrate 5 mg PO DAILY ml 08/28/17 diazepam 5 mg/mL oral concentrate 7 mg PO BID ml 08/28/17 oxcarbazepine 300 mg/5 mL (60 mg/mL) oral suspension 8 ml GT BID ml 08/28/17 levalbuterol HCl 1.25 mg INHALATION BID 05/07/20 insulin aspart U-100 100 unit/mL (3 mL) subcutaneous pen 8 units SQ 4X/DAY 09/20/20 insulin aspart U-100 See Protocol SC 5X/DAY 10/23/20 multivit-folic acid-herbal 275 10 ml GT DAILY 10/23/20 montelukast 10 mg tablet 10 mg GT QPM #30 tab 11/06/20 acidophilus-pectin, citrus 1 tab GT DAILY 11/12/20 cholecalciferol (vitamin D3) 4,000 unit GT DAILY 11/12/20 guaifenesin 100 mg/5 mL oral liquid 200 mg GT Q4H PRN PRN #473 ml 12/06/20 cetirizine 1 mg/mL oral solution 10 mg PO QDAY PRN #480 ml 01/23/21 diphenhydramine HCl 12.5 mg PO BID PRN PRN 02/28/21 ferrous sulfate 60 mg PO DAILY 02/28/21 fexofenadine 60 mg PO BID PRN PRN 02/28/21 fluticasone propionate 2 puff INHALATION BID 02/28/21 ertapenem 1 g IV Q24H 28 Days #28 ea 03/03/21 Hospital Course Operations None Procedures None Summary of Care Provided Minutes Spent on Discharge: 35 Hospital Course: Patient is a 30-year-old female admitted 02/28/2021 due to persistent UTI. 1. Acute recurrent complicated UTI-ID consulted. Cultures growing ESBL E. coli. Blood cultures negative. Plan for IV ertapenem at discharge until staghorn calculi are addressed. Follow-up with PCP in 1 week. Follow-up with urology as scheduled. 2. Staghorn calculi- will make outpatient referral to [facility] Urology for further management. 3. Chronic respiratory failure/hemiplegia/seizure disorder/intellectual disability secondary to cerebral palsy-on trach/ventilator/PEG tube. Home support in place. 4. History of C. difficile 5. Type 2 diabetes mellitus-Continue home insulin regimen. Physical Exam Const alert, oriented x3 and no apparent distress Orientation / Consciousness: awake, oriented to person, oriented to place and oriented to time Nutritional Appearance: cachectic HEENT normocephalic and moist oral mucous membranes Eyes PERRL, EOMs intact bilaterally and conjunctivae normal Neck no lymphadenopathy Resp normal respiratory effort and clear to auscultation bilaterally Cardio regular rate, regular rhythm and no murmurs Peripheral Pulses: pulses 2+ throughout GI normal to inspection, nondistended, normoactive bowel sounds, non-tender and non-distended Extremity normal to inspection Extremity Narrative: Upper and lower extremity contractures Skin no rashes or lesions noted Lesions: no lesions Rashes: no rashes Trauma: no lacerations or abrasions Neuro CN's II-XII intact bilaterally, no focal motor deficits, no sensory deficits noted and deep tendon reflexes 2+ bilaterally Psych mental status grossly normal and affect normal Patient seen and examined prior to discharge. Physical assessment as noted above. Patient is stable for discharge with follow up recommendations as noted above. This patient was seen by DAX Delgadillo under the supervision of Dr. Barragan. Weight / BMI Weight Weight: 110 lb 7.225 oz Body Mass Index (BMI) 23.8 ABG / Lab / Microbiology Data Result Diagrams: 03/04/21 07:20 03/04/21 07:20 Laboratory: Laboratory Results - last 24 hr 03/03/21 03/03/21 03/04/21 14:56 18:12 07:20 WBC 4.7 RBC 3.40 L Hgb 10.8 L Hct 33.0 L MCV 97.1 MCH 31.8 MCHC 32.7 RDW Std Deviation 43.8 RDW Coeff of Anne 12.3 Plt Count 229 MPV 9.4 Immature Gran % (Auto) 0.400 Neut % (Auto) 61.1 Lymph % (Auto) 28.8 [place] % (Auto) 7.2 Eos % (Auto) 2.1 Baso % (Auto) 0.4 Absolute Neuts (auto) 2.9 Absolute Lymphs (auto) 1.35 Nucleated RBC % 0 Sodium Potassium Chloride Carbon Dioxide Anion Gap BUN Creatinine Estim Creat Clear Calc Est GFR (MDRD) Af Amer Est GFR (MDRD) Non-Af BUN/Creatinine Ratio Glucose Calcium POC Glucose 69 L 81 03/04/21 03/04/21 03/04/21 07:20 08:22 11:21 WBC RBC Hgb Hct MCV MCH MCHC RDW Std Deviation RDW Coeff of Anne Plt Count MPV Immature Gran % (Auto) Neut % (Auto) Lymph % (Auto) [place] % (Auto) Eos % (Auto) Baso % (Auto) Absolute Neuts (auto) Absolute Lymphs (auto) Nucleated RBC % Sodium 142 Potassium 4.0 Chloride 107 Carbon Dioxide 28.0 Anion Gap 7 BUN 4 L Creatinine 0.32 L Estim Creat Clear Calc 203.31 Est GFR (MDRD) Af Amer 309 Est GFR (MDRD) Non-Af 255 BUN/Creatinine Ratio 12.5 Glucose 88 Calcium 9.2 POC Glucose 104 91 Microbiology: Microbiology 02/28/21 19:18 Urine Culture - Final Urine, Catheterized Presumptive E. coli Microbiology 02/28/21 19:18 Urine, Catheterized Urine Culture - Final Presumptive E. coli 03/01/21 17:40 Blood Culture (Wb) - Venous Blood Culture - Preliminary No growth in 48 hours. 02/28/21 19:20 Blood Culture (Wb) - Venous Blood Culture - Preliminary No growth in 48 hours. D/C Instructions Discharge Diet: - (Resume home tube feed regimen) Call your doctor if you observe: Fever of 101 or Higher, Shortness of breath, Dizziness and Chest pain Meaningful Use Info Meaningful Use Diagnoses (Choose all that apply): None applicable Discharge Plan Admission Admit Date/Time: 02/28/21 20:45 Primary Reason for Your Visit: complicated UTI, staghorn calculi Attending Provider: Maximino Barragan Primary Care Provider: Sandra Bermudez Consulting Providers: Landry Valenzuela ; Rafa Bettencourt Discharge Orders/Prescriptions Prescriptions: New ertapenem 1 gram Recon Soln 1 g IV Q24H 28 Days Qty: 28 RF: 0 Continued diazepam 5 mg/mL oral concentrate 5 mg/mL concentrate 7 mg PO BID RF: 0 diazepam 5 mg/mL oral concentrate 5 mg/mL concentrate 5 mg PO DAILY RF: 0 oxcarbazepine [Trileptal] 300 mg/5 mL (60 mg/mL) suspension 8 ml GT BID RF: 0 guaifenesin 100 mg/5 mL liquid 200 mg GT Q4H PRN PRN (Reason: thick secretions) Qty: 473 RF: 2 insulin aspart U-100 100 unit/mL (3 mL) insulin pen 8 units SQ 4X/DAY RF: 0 montelukast 10 mg tablet 10 mg GT QPM Qty: 30 RF: 6 baclofen 20 MG tablet 30 mg GT TID RF: 0 levalbuterol HCl 1.25 MG/3 ML solution for nebulization 1.25 mg INHALATION BID RF: 0 multivit-folic acid-herbal 275 480 ML liquid 10 ml GT DAILY RF: 0 insulin aspart U-100 100 UNITS/ML insulin pen See Protocol units SC 5X/DAY RF: 0 cholecalciferol (vitamin D3) 2,000 UNIT capsule 4,000 unit GT DAILY RF: 0 acidophilus-pectin, citrus 1 TABLET tablet 1 tab GT DAILY RF: 0 diphenhydramine HCl 12.5 mg/5 mL Elixir 12.5 mg PO BID PRN PRN (Reason: Secretions) RF: 0 fluticasone propionate 44 mcg/actuation Hfa Aerosol Inhaler 2 puff INHALATION BID RF: 0 fexofenadine 30 mg/5 mL Suspension 60 mg PO BID PRN PRN (Reason: Allergy Symptoms) RF: 0 ferrous sulfate 15 mg iron (75 mg)/mL Syringe 60 mg PO DAILY RF: 0 cetirizine [Children's Zyrtec Allergy] 1 mg/mL solution 10 mg PO QDAY PRN (Reason: allergy symptoms) Qty: 480 RF: 6 Referrals / Follow Up: [facility] [Other] - 03/04/21 1:10 pm ([facility]th [facility] ) Sandra Bermudez DO [Primary Care Provider] - In 1 Week Disposition Disposition (needs filled in before D/C Order can be placed): Home Health Service Documented by User: Dr. Maximino Barragan MD 03/04/21 13:56 Providers Date of Admission: 02/28/21 Reason For Visit: COMPLICATED UTI Medications at Discharge Home Medications baclofen 30 mg GT TID 09/02/13 diazepam 5 mg/mL oral concentrate 5 mg PO DAILY ml 08/28/17 diazepam 5 mg/mL oral concentrate 7 mg PO BID ml 08/28/17 oxcarbazepine 300 mg/5 mL (60 mg/mL) oral suspension 8 ml GT BID ml 08/28/17 levalbuterol HCl 1.25 mg INHALATION BID 05/07/20 insulin aspart U-100 100 unit/mL (3 mL) subcutaneous pen 8 units SQ 4X/DAY 09/20/20 insulin aspart U-100 See Protocol SC 5X/DAY 10/23/20 multivit-folic acid-herbal 275 10 ml GT DAILY 10/23/20 montelukast 10 mg tablet 10 mg GT QPM #30 tab 11/06/20 acidophilus-pectin, citrus 1 tab GT DAILY 11/12/20 cholecalciferol (vitamin D3) 4,000 unit GT DAILY 11/12/20 guaifenesin 100 mg/5 mL oral liquid 200 mg GT Q4H PRN PRN #473 ml 12/06/20 cetirizine 1 mg/mL oral solution 10 mg PO QDAY PRN #480 ml 01/23/21 diphenhydramine HCl 12.5 mg PO BID PRN PRN 02/28/21 ferrous sulfate 60 mg PO DAILY 02/28/21 fexofenadine 60 mg PO BID PRN PRN 02/28/21 fluticasone propionate 2 puff INHALATION BID 02/28/21 ertapenem 1 g IV Q24H 28 Days #28 ea 03/03/21 ABG / Lab / Microbiology Data Result Diagrams: 03/04/21 07:20 03/04/21 07:20 Discharge Plan Admission Admit Date/Time: 02/28/21 20:45 Primary Reason for Your Visit: complicated UTI, staghorn calculi Attending Provider: Maximino Barragan Primary Care Provider: Sandra Bermudez Consulting Providers: Landry Valenzuela ; Rafa Bettencourt Discharge Orders/Prescriptions Prescriptions: New ertapenem 1 gram Recon Soln 1 g IV Q24H 28 Days Qty: 28 RF: 0 Continued diazepam 5 mg/mL oral concentrate 5 mg/mL concentrate 7 mg PO BID RF: 0 diazepam 5 mg/mL oral concentrate 5 mg/mL concentrate 5 mg PO DAILY RF: 0 oxcarbazepine [Trileptal] 300 mg/5 mL (60 mg/mL) suspension 8 ml GT BID RF: 0 guaifenesin 100 mg/5 mL liquid 200 mg GT Q4H PRN PRN (Reason: thick secretions) Qty: 473 RF: 2 insulin aspart U-100 100 unit/mL (3 mL) insulin pen 8 units SQ 4X/DAY RF: 0 montelukast 10 mg tablet 10 mg GT QPM Qty: 30 RF: 6 baclofen 20 MG tablet 30 mg GT TID RF: 0 levalbuterol HCl 1.25 MG/3 ML solution for nebulization 1.25 mg INHALATION BID RF: 0 multivit-folic acid-herbal 275 480 ML liquid 10 ml GT DAILY RF: 0 insulin aspart U-100 100 UNITS/ML insulin pen See Protocol units SC 5X/DAY RF: 0 cholecalciferol (vitamin D3) 2,000 UNIT capsule 4,000 unit GT DAILY RF: 0 acidophilus-pectin, citrus 1 TABLET tablet 1 tab GT DAILY RF: 0 diphenhydramine HCl 12.5 mg/5 mL Elixir 12.5 mg PO BID PRN PRN (Reason: Secretions) RF: 0 fluticasone propionate 44 mcg/actuation Hfa Aerosol Inhaler 2 puff INHALATION BID RF: 0 fexofenadine 30 mg/5 mL Suspension 60 mg PO BID PRN PRN (Reason: Allergy Symptoms) RF: 0 ferrous sulfate 15 mg iron (75 mg)/mL Syringe 60 mg PO DAILY RF: 0 cetirizine [Children's Zyrtec Allergy] 1 mg/mL solution 10 mg PO QDAY PRN (Reason: allergy symptoms) Qty: 480 RF: 6 Referrals / Follow Up: [facility] [Other] - 03/04/21 1:10 pm (7th Floor [facility] [place] ) Sandra Bermudez DO [Primary Care Provider] - In 1 Week Disposition Disposition (needs filled in before D/C Order can be placed): Home Health Service Charges/Coding Addendum Addendum: Dr. Barragan: I personally reviewed the chart and examined the patient, and agree with the above findings. 30-year-old female with cerebral palsy who is trached and pegged presented to the hospital with UTI in the setting of staghorn calculus. Infectious disease recommends IV Invanz for 4 weeks no she to follow-up with urology in [place] for management of staghorn calculus. Unfortunately we are having difficulty setting up the IV antibiotics and will evaluate for discharge in the morning. 03/04/2021: Did very well overnight. No new issues. We were able to get home health nursing for her IV antibiotics. Lab work and vital signs remained stable, family was comfortable taking her home and therefore she was discharged home today. Visit Charges Inpatient E&M: 49825 Disch Hosp
--- NOTE | 2021-03-04 13:28 | CASEMGMT ---
Addendum entered by Mey Weinstein 03/04/21 15:11: [facility] updated on discharge, voices understanding. Moose RN CM Addendum entered by Mey Weinstein 03/04/21 14:56: Vinny [facility] ward secretary, [facility] unsure if they can transport at this time. This RN CM placed call to [facility] partner marketing manager, she is updated on pt vent settings/type and she states they can transport pt and transport set up for 1829 tonight. She states it is up to the crew whether mom can ride or not and mother is updated on this and time of transport at this time. Pt's mom is asking about other transportation from home as [facility] does not do it and [facility] is 'doing less and less' per mother. Mother states pt has a [facility] CM and this RN CM encouraged her to contact them for transportation concerns/resources. Pt's mother voices no further questions/concerns/needs. [facility] charge, Michelle MARADIAGA, and Debra, ward secretary, updated on transport time,voice understanding. D/C summary/instructions faxed to [facility], [facility], and [facility] at this time. Moose RN CM Addendum entered by Mey Weinstein 03/04/21 14:29: Per Debra Xin ward secretary, [facility] states they cannot transport pt today. Pt's mom updated and is agreeable to trying [facility] at this time and mom states she would like to ride in back of squad with pt home. Debra Xin ward secretary, updated on all and will check on mom riding as she is able to manage pt's equipment. CM to follow. Moose MARADIAGA CM Original Note: Call from Fatmata at [facility] and she states they can accept pt. This RN CM to check on time for med to be given as [facility] cannot do start of care until tomorrow. Per chart, dose yesterday was started at 2055. Call to [facility] pharmacist, and she states the earliest today's dose can be given is between [phone] today. Michelle MARADIAGA, pt's mother, Fatmata at [facility], and Yana at [facility] all updated, voice understanding. Med infuses in 30 minutes. Pt's mom would like [facility] for transportation home and pt's mom and Michelle MARADIAGA are ok with it being set up at [phone], Debra [facility] ward secretary aware, voices understanding. Per Yana at [facility], she will be giving pt's mother a call to update her on the meds/supplies and mom aware. Mom voices no further questions/concerns/needs and thanks this HIREN CM at this time. Moose MARADIAGA CM
[2021-03-04 15:06] LABS: Bedside Glucose 63 mg/dL (70-110)
[2021-03-04 15:06] LABS: Bedside Glucose 119 mg/dL (70-110)
[2021-03-04 17:55] LABS: Bedside Glucose 84 mg/dL (70-110)
[2021-03-04] MEDS: 0.9% Saline Lock 10 ML Syringe IV (18:01)
--- NOTE | 2021-03-05 14:17 | CASEMGMT ---
Addendum entered by Mey Son 03/05/21 14:56: HIREN WILSON received call back from patient's mother, Rina. Patient is doing well. Rina had question regarding appt made with [facility] and wanted to clarify date of appt. RN CM encourage Rina to call Dr. Boyle's office to clarify. Rina states that IV ATBs were delivered with no problem and [facility] was there this morning to provide teaching. Rina had no further questions or concerns at this time. Original Note: HIREN WILSON Discharge Follow-up Phone Call: DYLAN: Shani Strata: 3 Call Date: 03/05/21 Discharge Date: 03/04/21 Time of Call: 1415 Duration: 1 min Admitting Diagnosis: Complicated UTI RN KATIE attempted to complete follow-up phone call after recent hospitalization. No answer, voice message left with return contact information. Patient setup with [facility] for IV ATBs.
== END 2021-03-04 21:05 | disposition home health service (06) | DRG 463 ==
LOC: ED 20:31 → ICU 21:18 → PCU 03-01 16:51
PROVIDERS: Nurse Practitioner Family; Student in an Organized Health Care Education/Training Program; Admitting Provider Hospitalist; Emergency Provider Emergency Medicine; PCP Internal Medicine; Visit Provider Family Medicine
DX: N39.0 Urinary tract infection, site not specified (principal); N20.2 Calculus of kidney with calculus of ureter; B96.20 Unspecified Escherichia coli [E. coli] as the cause of diseases classified elsewhere; Z16.12 Extended spectrum beta lactamase (ESBL) resistance; Z16.24 Resistance to multiple antibiotics; B37.3 Candidiasis of vulva and vagina; G80.0 Spastic quadriplegic cerebral palsy; F70 Mild intellectual disabilities; J96.11 Chronic respiratory failure with hypoxia; J47.9 Bronchiectasis, uncomplicated; Z99.11 Dependence on respirator [ventilator] status; G40.909 Epilepsy, unspecified, not intractable, without status epilepticus; E11.9 Type 2 diabetes mellitus without complications; Z79.4 Long term (current) use of insulin; Z79.899 Other long term (current) drug therapy; Z93.0 Tracheostomy status; Z93.1 Gastrostomy status; Z98.1 Arthrodesis status; Z87.442 Personal history of urinary calculi; Z87.440 Personal history of urinary (tract) infections
CPT/HCPCS: 31720; 36415; 80048; 80053; 81001; 82962; 83605; 85025; 85610; 85730; 87040; 87086; 87088; 87186; 94640; 97165; 97802; 99251; 99285; J7030; J7050; A4216; G0463; J3490

== ENCOUNTER → 2021-03-13 | Outpatient (CLI) | payer MEDICAID, SELFPAY ==
[2021-03-01 12:05] VITALS: BMI 23.8
[2021-03-13 12:01] LABS: Hemoglobin 11.4 g/dL (12.0-15.0); Mean Corp Hgb Conc 34.5 g/dL (32-36); Mean Corpuscular Hgb 31.5 pg (27.0-32.0); Mean Corpuscular Volume 91.2 fL (81-99); Mean Platelet Vol. 10.7 fl (6.2-12.0); Platelet Count 295 K/mm3 (150-450); RBC Distribution Width CV 11.9 % (11.6-14.6); RBC Distribution Width SD 39.6 fl (35.1-43.9); Red Blood Count 3.62 M/mm3 (4.2-5.4); White Blood Count 4.9 K/mm3 (4.4-11.0)
[2021-03-13 12:06] LABS: AST(SGOT) 16 U/L (15-37); Alanine Aminotransfer ALT/SGPT 23 U/L (13-56); Alkaline Phosphatase 77 U/L (45-117); Anion Gap 7 (5-15); BUN 9 mg/dL (7-18); BUN/Creat Ratio 17.6 RATIO (10-20); Bilirubin, Direct 0.07 mg/dL (0.00-0.30); Calcium,Total 9.3 mg/dL (8.5-10.1); Chloride 94 mmol/L (98-107); Creatinine, Serum 0.51 mg/dL (0.55-1.02); EST Glomerular Filtration Rate 149 mL/min (>60); Est Glom Filt Rate - Afr Amer 180 mL/min (>60); Globulin 3.3 g/dL (2.2-4.2); Glucose 138 mg/dL (74-106); Potassium 4.2 mmol/L (3.5-5.1); Protein, Total 7.3 g/dL (6.4-8.2); Sodium Level 129 mmol/L (136-145)
== END | disposition home or self-care (01) ==
LOC: LABSPEC 11:40
PROVIDERS: PCP Internal Medicine; Visit Provider Internal Medicine Infectious Disease
DX: N12 Tubulo-interstitial nephritis, not specified as acute or chronic (principal); A49.8 Other bacterial infections of unspecified site
CPT/HCPCS: 80048; 80076; 85027

== ENCOUNTER 2021-03-29 14:23 | Emergency (ER) | payer MEDICAID, SELFPAY ==
[2021-03-01 12:05] VITALS: BMI 23.8
[2021-03-29 14:26] VITALS: BP 131/82; PULSE 71; RESP 18; TEMP 37; O2SAT 100; BMI 23.6
[2021-03-29 14:30] VITALS: BP 131/82; PULSE 64; RESP 18; TEMP 37; O2SAT 100
--- NOTE | 2021-03-29 15:18 | EX.ED.UPPERE ---
HPI History of Present Illness Chief Complaint: Upper Extremity Injury Narrative Narrative: Patient presenting due to complaints from a midline. Patient has had a left arm midline in place over the course of about the last month because she has been getting treatment with ertapenem for a urinary tract infection. Over the course of the last couple of days patient's caregiver states that she has been complaining of some pain in that left arm with some increased swelling. Patient does not have any underlying history of DVT or PE, is not anticoagulated. There is some mild redness surrounding the midline site. Patient only has about another 5 days left of her IV antibiotics. [facility] Medical History Allergic rhinitis due to other allergen Amenorrhea Bronchiectasis without acute exacerbation Bronchitis C. difficile diarrhea Cellulitis of groin Cerebral palsy Chronic respiratory failure Diabetes Fungal infection of the groin Hyperglycemia Irregular menstrual cycle Lactic acid acidosis Malignant hyperthermia Mild mental retardation MRSA (methicillin resistant Staphylococcus aureus) Neuromuscular scoliosis Paraplegia Pneumonia Respiratory acidosis Seizure Severe sepsis Spastic hemiplegic cerebral palsy Streptococcus pneumoniae Thrush Visual disturbance Vitamin D deficiency Home Medications baclofen 30 mg GT TID 09/02/13 [History Last Taken 01/10/19] diazepam 5 mg/mL oral concentrate 5 mg PO DAILY ml 08/28/17 [History Last Taken 01/10/19] diazepam 5 mg/mL oral concentrate 7 mg PO BID ml 08/28/17 [History Last Taken 01/10/19] oxcarbazepine 300 mg/5 mL (60 mg/mL) oral suspension 8 ml GT BID ml 08/28/17 [History Last Taken 01/24/18 14:00] insulin aspart U-100 100 unit/mL (3 mL) subcutaneous pen 8 units SQ 4X/DAY 09/20/20 [History Last Taken Unknown] insulin aspart U-100 See Protocol SC 5X/DAY 10/23/20 [History Last Taken Unknown] multivit-folic acid-herbal 275 10 ml GT DAILY 10/23/20 [History Last Taken Unknown] montelukast 10 mg tablet 10 mg GT QPM #30 tab 11/06/20 [Rx Last Taken Unknown] acidophilus-pectin, citrus 1 tab GT DAILY 11/12/20 [History Last Taken Unknown] cholecalciferol (vitamin D3) 4,000 unit GT DAILY 11/12/20 [History Last Taken Unknown] guaifenesin 100 mg/5 mL oral liquid 200 mg GT Q4H PRN PRN #473 ml 12/06/20 [Rx Last Taken Unknown] cetirizine 1 mg/mL oral solution 10 mg PO QDAY PRN #480 ml 01/23/21 [Rx Last Taken Unknown] diphenhydramine HCl 12.5 mg PO BID PRN PRN 02/28/21 [History Last Taken Unknown] ferrous sulfate 60 mg PO DAILY 02/28/21 [History Last Taken Unknown] fexofenadine 60 mg PO BID PRN PRN 02/28/21 [History Last Taken Unknown] fluticasone propionate 2 puff INHALATION BID 02/28/21 [History Last Taken Unknown] ertapenem 1 g IV Q24H 28 Days #28 ea 03/03/21 [Rx Last Taken Unknown] levalbuterol HCl 1.25 mg/3 mL solution for nebulization 1.25 mg INHALATION BID #90 ml 03/05/21 [Rx Last Taken Unknown] Allergy/AdvReac Type Severity Reaction Status Date / Time linezolid Allergy Severe Other - Verified 03/29/21 14:31 seizure & coma vancomycin Allergy Severe Other - Verified 03/29/21 14:31 kidney failure tobramycin Allergy Intermediate Other - Verified 03/29/21 14:31 turned beet red nafcillin Allergy Mild Rash Verified 03/29/21 14:31 benzoin Allergy Unknown Rash Verified 03/29/21 14:31 milk Allergy Unknown Other Verified 03/29/21 14:31 soy Allergy Unknown Other Verified 03/29/21 14:31 polyethylene glycol 3350 AdvReac Unknown Hives Verified 03/29/21 14:31 [From Miralax] Family History Grandmother Cancer maternal Other Adopted Surgical History derotatox ostomies eyes straightened Gastrostomy tube in place H/O spinal fusion Presence of intrathecal baclofen pump rods to back Status post Jorje fundoplication surgery on gland under tongue tendonatomies Tracheostomy status Social History household members: other details: Mother and is vent dependent housing: house Smoking Status: Never smoker second hand exposure: No alcohol intake: never substance use type: does not use ROS ROS ED Review of Systems ROS Unobtainable: other Details: nonverbal Integumentary Reports rash EXAM Physical Exam Const Vital Signs: 03/29/21 14:26 03/29/21 14:30 Temperature 98.6 F 98.6 F Temperature Source Temporal Temporal Pulse Rate 71 64 Respiratory Rate 18 18 Blood Pressure 131/82 H 131/82 H Blood Pressure Mean 98 98 Pulse Ox 100 100 Oxygen Delivery Method Mechanical Ventilator Mechanical Ventilator Positive well nourished Constitutional Narrative: Chronically dysmorphic female no acute distress HEENT normocephalic Eyes Eyes Narrative: Resting nystagmus noted Neck Neck Narrative: Tracheostomy in place Resp Resp Narrative: Patient is chronically on a ventilator Cardio regular rate and regular rhythm Extremity Extremity Narrative: Examination of the patient's left arm shows a in place midline. There is mild dermatitis surrounding this, no evidence of cellulitis no evidence of fluctuance no induration no lymphangitic streaking. Site is otherwise clean dry and intact. Neuro Neuro Narrative: At the patient's baseline per mother Sensorium / Orientation: alert Skin Skin Narrative: See above MDM MDM MDM Narrative Medical decision making narrative: Patient presented secondary to complaints of skin changes and some pain in the arm surrounding a midline. Physical exam really shows there to be some dermatitis no signs of infection likely secondary to the patient's chronic dressing with Tegaderm over this line over the course of the last month I performed a bedside ultrasound, and over the length of the line I was not able to identify any sort of clot, and just proximal to the line I did not see any clot although this was not a complete study. This point I believe that the discomfort likely is due to dermatitis. Patient will have a outpatient formal duplex ultrasound arranged, but I do not think that anticoagulation or removal of the line is indicated at this point. Patient was discharged in stable condition. Discharge Plan Triage Chief Complaint: Upper Extremity Injury ED Provider: Tomás Thomas Dx/Rx/DC Orders Clinical Impression: Dermatitis Instructions: ED Contact Dermatitis Prescriptions: No Action diazepam 5 mg/mL oral concentrate 5 mg/mL concentrate 7 mg PO BID RF: 0 diazepam 5 mg/mL oral concentrate 5 mg/mL concentrate 5 mg PO DAILY RF: 0 oxcarbazepine [Trileptal] 300 mg/5 mL (60 mg/mL) suspension 8 ml GT BID RF: 0 guaifenesin 100 mg/5 mL liquid 200 mg GT Q4H PRN PRN (Reason: thick secretions) Qty: 473 RF: 2 insulin aspart U-100 100 unit/mL (3 mL) insulin pen 8 units SQ 4X/DAY RF: 0 montelukast 10 mg tablet 10 mg GT QPM Qty: 30 RF: 6 baclofen 20 MG tablet 30 mg GT TID RF: 0 multivit-folic acid-herbal 275 480 ML liquid 10 ml GT DAILY RF: 0 insulin aspart U-100 100 UNITS/ML insulin pen See Protocol units SC 5X/DAY RF: 0 cholecalciferol (vitamin D3) 2,000 UNIT capsule 4,000 unit GT DAILY RF: 0 acidophilus-pectin, citrus 1 TABLET tablet 1 tab GT DAILY RF: 0 diphenhydramine HCl 12.5 mg/5 mL Elixir 12.5 mg PO BID PRN PRN (Reason: Secretions) RF: 0 fluticasone propionate 44 mcg/actuation Hfa Aerosol Inhaler 2 puff INHALATION BID RF: 0 fexofenadine 30 mg/5 mL Suspension 60 mg PO BID PRN PRN (Reason: Allergy Symptoms) RF: 0 ferrous sulfate 15 mg iron (75 mg)/mL Syringe 60 mg PO DAILY RF: 0 ertapenem 1 gram Recon Soln 1 g IV Q24H 28 Days Qty: 28 RF: 0 cetirizine [Children's Zyrtec Allergy] 1 mg/mL solution 10 mg PO QDAY PRN (Reason: allergy symptoms) Qty: 480 RF: 6 levalbuterol HCl 1.25 mg/3 mL solution for nebulization 1.25 mg INHALATION BID Qty: 90 RF: 6 Primary Care Provider: Sandra Bermudez Referrals: Sandra Bermudez DO [Primary Care Provider] - Activity Restrictions/Additional Instructions: Have a formal ultrasound performed of the left arm
--- NOTE | 2021-03-29 15:46 | NURSING ---
CALLED [facility], ETA IS 1 HR TO 1.5 HRS
[2021-03-29 15:51] VITALS: BP 127/65; PULSE 74; RESP 14; O2SAT 100
== END 2021-03-29 16:52 | disposition home or self-care (01) ==
PROVIDERS: Emergency Provider Emergency Medicine; PCP Internal Medicine
DX: L30.9 Dermatitis, unspecified (principal); T82.848A Pain due to vascular prosthetic devices, implants and grafts, initial encounter; N39.0 Urinary tract infection, site not specified; Z79.2 Long term (current) use of antibiotics; E11.9 Type 2 diabetes mellitus without complications; E78.5 Hyperlipidemia, unspecified; Z79.4 Long term (current) use of insulin; Z79.899 Other long term (current) drug therapy
CPT/HCPCS: 99284

== ENCOUNTER → 2021-05-13 03:30 | Outpatient (CLI) | payer MEDICAID, SELFPAY ==
[2021-05-13 10:25] LABS: Absolute Lymphocyte Count 1.22 X10^3/uL (0.83-4.51); Basophil# 0.02 X10^3/uL; Basophil% 0.3 % (0-1); Eosinophil# 0.18 X10^3/uL; Eosinophils% 3.1 % (0-5); Hematocrit 35.7 % (37-47); Hemoglobin 11.9 g/dL (12.0-15.0); Lymphocyte # 1.22 X10^3/ul (0.83-4.51); Lymphocyte % 20.7 % (19-41); Mean Corp Hgb Conc 33.3 g/dL (32-36); Mean Corpuscular Hgb 31.4 pg (27.0-32.0); Mean Corpuscular Volume 94.2 fL (81-99); Monocyte# 0.41 X10^3/uL; Monocyte% 6.9 % (0-10); NRBC Flagged by Analyzer 0 % (0-5); Neutrophil # 4.03 X10^3/uL (2.7-7.7); Neutrophil % 68.3 % (47-70); Platelet Count 356 K/mm3 (150-450); RBC Distribution Width CV 11.8 % (11.6-14.6); RBC Distribution Width SD 40.6 fl (35.1-43.9); Red Blood Count 3.79 M/mm3 (4.2-5.4); White Blood Count 5.9 K/mm3 (4.4-11.0)
[2021-05-13 10:59] LABS: AST(SGOT) 11 U/L (15-37); Alanine Aminotransfer ALT/SGPT 29 U/L (13-56); Alkaline Phosphatase 82 U/L (45-117); Anion Gap 7 (5-15); BUN 8 mg/dL (7-18); BUN/Creat Ratio 13.9 RATIO (10-20); Calcium,Total 9.6 mg/dL (8.5-10.1); Carbamazepine (Tegretol) 0.7 ug/mL (4.0-12.0); Chloride 96 mmol/L (98-107); Creatinine, Serum 0.58 mg/dL (0.55-1.02); EST Glomerular Filtration Rate 130 mL/min (>60); Est Glom Filt Rate - Afr Amer 157 mL/min (>60); Glucose 166 mg/dL (74-106); Potassium 3.6 mmol/L (3.5-5.1); Sodium Level 133 mmol/L (136-145)
== END ==
PROVIDERS: PCP Internal Medicine; Referring Provider Psychiatry & Neurology Neurology; Visit Provider Psychiatry & Neurology Neurology
DX: G40.909 Epilepsy, unspecified, not intractable, without status epilepticus (principal)
CPT/HCPCS: 36415; 80053; 80156; 85025

== ENCOUNTER 2021-05-20 11:58 | Inpatient (IN) | payer MEDICAID, SELFPAY ==
[2021-05-20] VITALS (19 sets, daily range): BP systolic 97–136; BP diastolic 57–101; PULSE 99–147; RESP 14–39; TEMP 36.9–37.9; O2SAT 98–100; BMI 24.4
--- NOTE | 2021-05-20 12:33 | EKG12_ITS ---
Test Reason : SOB Blood Pressure : / mmHG Vent. Rate : 138 BPM Atrial Rate : 138 BPM P-R Int : 142 ms QRS Dur : 080 ms QT Int : 286 ms P-R-T Axes : 039 007 085 degrees QTc Int : 433 ms Sinus tachycardia Otherwise normal ECG Confirmed by MINGO LEIJA, KOBY ([id number]), tunnel kiln repairer KRYSTYNA ANDERSON ([id number]) on 05/22/2021 9:10:07 AM Referred By: PC Confirmed By:KOBY AGUILA MD
--- NOTE | 2021-05-20 12:34 | EDS_ITS ---
HPI History of Present Illness Chief Complaint: Fever Narrative Narrative: Patient has severe cerebral palsy, she is nonverbal nonambulatory and on a chronic vent. She arrives via EMS with high fevers and difficulty breathing even on her vent. She is not immunized for Covid but she has not been around any sick contacts. She lives at home with her mother who is her caregiver. She has a history of kidney stones but no recent urinary symptoms per mother, she wears adult diapers and is not cath. Apparently patient can answer yes or no with facial features and she has not been complaining of abdominal pain. No rash. [facility] Medical History Allergic rhinitis due to other allergen Amenorrhea Bronchiectasis without acute exacerbation Bronchitis C. difficile diarrhea Cellulitis of groin Cerebral palsy Chronic respiratory failure Diabetes Fungal infection of the groin Hyperglycemia Irregular menstrual cycle Lactic acid acidosis Malignant hyperthermia Mild mental retardation MRSA (methicillin resistant Staphylococcus aureus) Neuromuscular scoliosis Paraplegia Pneumonia Respiratory acidosis Seizure Severe sepsis Spastic hemiplegic cerebral palsy Streptococcus pneumoniae Thrush Visual disturbance Vitamin D deficiency Home Medications baclofen 30 mg GT TID 09/02/13 [History Last Taken 01/10/19] diazepam 5 mg/mL oral concentrate 5 mg PO DAILY ml 08/28/17 [History Last Taken 01/10/19] diazepam 5 mg/mL oral concentrate 7 mg PO BID ml 08/28/17 [History Last Taken 01/10/19] oxcarbazepine 300 mg/5 mL (60 mg/mL) oral suspension 8 ml GT BID ml 08/28/17 [History Last Taken 01/24/18 14:00] insulin aspart U-100 100 unit/mL (3 mL) subcutaneous pen 8 units SQ 4X/DAY 09/20/20 [History Last Taken Unknown] insulin aspart U-100 See Protocol SC 5X/DAY 10/23/20 [History Last Taken Unknown] multivit-folic acid-herbal 275 10 ml GT DAILY 10/23/20 [History Last Taken Unknown] montelukast 10 mg tablet 10 mg GT QPM #30 tab 11/06/20 [Rx Last Taken Unknown] acidophilus-pectin, citrus 1 tab GT DAILY 11/12/20 [History Last Taken Unknown] cholecalciferol (vitamin D3) 4,000 unit GT DAILY 11/12/20 [History Last Taken Unknown] guaifenesin 100 mg/5 mL oral liquid 200 mg GT Q4H PRN PRN #473 ml 12/06/20 [Rx Last Taken Unknown] cetirizine 1 mg/mL oral solution 10 mg PO QDAY PRN #480 ml 01/23/21 [Rx Last Taken Unknown] diphenhydramine HCl 12.5 mg PO BID PRN PRN 02/28/21 [History Last Taken Unknown] ferrous sulfate 60 mg PO DAILY 02/28/21 [History Last Taken Unknown] fexofenadine 60 mg PO BID PRN PRN 02/28/21 [History Last Taken Unknown] fluticasone propionate 2 puff INHALATION BID 02/28/21 [History Last Taken Unknown] ertapenem 1 g IV Q24H 28 Days #28 ea 03/03/21 [Rx Last Taken Unknown] levalbuterol HCl 1.25 mg/3 mL solution for nebulization 1.25 mg INHALATION BID #90 ml 03/05/21 [Rx Last Taken Unknown] Allergy/AdvReac Type Severity Reaction Status Date / Time linezolid Allergy Severe Other - Verified 05/20/21 11:59 seizure & coma vancomycin Allergy Severe Other - Verified 05/20/21 11:59 kidney failure tobramycin Allergy Intermediate Other - Verified 05/20/21 11:59 turned beet red nafcillin Allergy Mild Rash Verified 05/20/21 11:59 benzoin Allergy Unknown Rash Verified 05/20/21 11:59 milk Allergy Unknown Other Verified 05/20/21 11:59 soy Allergy Unknown Other Verified 05/20/21 11:59 polyethylene glycol 3350 AdvReac Unknown Hives Verified 05/20/21 11:59 [From Miralax] Family History Grandmother Cancer maternal Other Adopted Surgical History derotatox ostomies eyes straightened Gastrostomy tube in place H/O spinal fusion Presence of intrathecal baclofen pump rods to back Status post Jorje fundoplication surgery on gland under tongue tendonatomies Tracheostomy status Social History household members: other details: Mother and is vent dependent housing: house Smoking Status: Never smoker second hand exposure: No alcohol intake: never substance use type: does not use ROS ROS ED Review of Systems ROS Unobtainable: due to endotracheal tube, due to mental condition and due to mental status EXAM Physical Exam Narrative Exam Narrative: Physical exam General: Obvious cerebral palsy features, she is nonverbal. Head: No signs of trauma. Eyes: Conjunctiva not pale. Pupils are 5 mm and equally reactive. ENT: Moist mucous membranes, poor dentition obvious signs of infection. Neck: Supple, Nontender, No lymphadenopathy Cardiovascular: Regular tachycardia without an obvious murmur. Respiratory: Bilateral wheezing and coarse breath sounds bilaterally. Abdomen: Soft, Nontender, Nondistended : Normal external genitalia Back: Nontender, Normal Inspection. Extremities: Nontender, No edema, contractures are present in arms and legs.. Skin: Normal color, No rash Neurological: Chronically nonverbal with decreased movement of extremities, no obvious new deficits. Const Vital Signs: 05/20/21 11:59 05/20/21 12:03 05/20/21 12:04 Temperature 100 F H Temperature Source Temporal Pulse Rate 141 H Respiratory Rate 17 Respiratory Effort Normal Non-Labored Respiratory Depth Normal Respiratory Pattern Normal Blood Pressure 136/101 H Blood Pressure Mean 112 Pulse Ox 100 Oxygen Delivery Method Ambu-Bag Fraction of Inspired Oxygen (FIO2) 05/20/21 12:44 05/20/21 12:45 05/20/21 13:30 Temperature Temperature Source Pulse Rate 144 H Respiratory Rate 30 H Respiratory Effort Respiratory Depth Respiratory Pattern Blood Pressure Blood Pressure Mean Pulse Ox 99 98 Oxygen Delivery Method Mechanical Ventilator Fraction of Inspired Oxygen (FIO2) 35 30 MDM MDM MDM Narrative Medical decision making narrative: Patient is found to be septic. She has a UTI which I will treat however she also has upper airway congestion sounds like she has a pneumonia on auscultation and likely has a pneumonia on the x-ray. Because she has a history of kidney stones I will order a CT to make sure she does not have an impacted kidney stone. Regardless patient will be admitted to the ICU. Initial Covid antigen was negative I ordered a PCR test. Lab Data Labs: Laboratory Results - last 24 hr 05/20/21 05/20/21 05/20/21 13:35 13:35 13:35 WBC 17.6 H RBC 3.71 L Hgb 11.8 L Hct 34.1 L MCV 91.9 MCH 31.8 MCHC 34.6 RDW Std Deviation 41.1 RDW Coeff of Anne 12.4 Plt Count 284 MPV 9.9 Immature Gran % (Auto) 0.800 Neut % (Auto) 82.1 H Lymph % (Auto) 3.6 L [place] % (Auto) 13.1 H Eos % (Auto) 0.2 Baso % (Auto) 0.2 Absolute Neuts (auto) 14.4 H Absolute Lymphs (auto) 0.64 L Nucleated RBC % 0 PT 14.0 INR 1.2 APTT 28.5 Sodium 131 L Potassium 3.4 L Chloride 95 L Carbon Dioxide 30.0 Anion Gap 6 BUN 7 Creatinine 0.49 L Estim Creat Clear Calc 124.48 Est GFR (MDRD) Af Amer 191 Est GFR (MDRD) Non-Af 158 BUN/Creatinine Ratio 14.4 Glucose 169 H Lactic Acid Calcium 9.4 Total Bilirubin 0.20 AST 51 H ALT 49 Alkaline Phosphatase 98 Total Protein 8.3 H Albumin 3.7 Globulin 4.6 H Albumin/Globulin Ratio 0.8 L Urine Color Urine Clarity Urine pH Ur Specific Arvin Urine Protein Urine Glucose (UA) Urine Ketones Urine Occult Blood Urine Nitrite Urine Bilirubin Urine Urobilinogen Ur Leukocyte Esterase 05/20/21 05/20/21 13:35 14:05 WBC RBC Hgb Hct MCV MCH MCHC RDW Std Deviation RDW Coeff of Anne Plt Count MPV Immature Gran % (Auto) Neut % (Auto) Lymph % (Auto) [place] % (Auto) Eos % (Auto) Baso % (Auto) Absolute Neuts (auto) Absolute Lymphs (auto) Nucleated RBC % PT INR APTT Sodium Potassium Chloride Carbon Dioxide Anion Gap BUN Creatinine Estim Creat Clear Calc Est GFR (MDRD) Af Amer Est GFR (MDRD) Non-Af BUN/Creatinine Ratio Glucose Lactic Acid 2.9 H* Calcium Total Bilirubin AST ALT Alkaline Phosphatase Total Protein Albumin Globulin Albumin/Globulin Ratio Urine Color Yellow Urine Clarity Sl. Cloudy Urine pH 7.0 Ur Specific Arvin 1.010 Urine Protein 30 H Urine Glucose (UA) 1000 H Urine Ketones 5 H Urine Occult Blood 150 H Urine Nitrite Positive H Urine Bilirubin Negative Urine Urobilinogen Normal Ur Leukocyte Esterase 500 H Radiography Diagnostic Testing: Radiology Impression Chest X-Ray 05/20/21 12:45 IMPRESSION: Moderate dextroscoliosis. Stable elevation of the left hemidiaphragm with persistent atelectasis and/or infiltrate at the left lung base. Electronically Signed: Francisco Vogt MD at 13:01 EDT , Service support , Critical Care Time Critical care time (excluding procedures): - (Critical care time of 30 minutes. This includes time at the bedside, time discussing with consultants, time documenting. Patient is acutely ill secondary to sepsis and respiratory distress.) Discharge Plan Triage Chief Complaint: Fever Other Complaint: Shortness of Breath ED Provider: Edward Flaherty Dx/Rx/DC Orders Clinical Impression: Sepsis, UTI (urinary tract infection) Prescriptions: No Action diazepam 5 mg/mL oral concentrate 5 mg/mL concentrate 7 mg PO BID RF: 0 diazepam 5 mg/mL oral concentrate 5 mg/mL concentrate 5 mg PO DAILY RF: 0 oxcarbazepine [Trileptal] 300 mg/5 mL (60 mg/mL) suspension 8 ml GT BID RF: 0 guaifenesin 100 mg/5 mL liquid 200 mg GT Q4H PRN PRN (Reason: thick secretions) Qty: 473 RF: 2 insulin aspart U-100 100 unit/mL (3 mL) insulin pen 8 units SQ 4X/DAY RF: 0 montelukast 10 mg tablet 10 mg GT QPM Qty: 30 RF: 6 baclofen 20 MG tablet 30 mg GT TID RF: 0 multivit-folic acid-herbal 275 480 ML liquid 10 ml GT DAILY RF: 0 insulin aspart U-100 100 UNITS/ML insulin pen See Protocol units SC 5X/DAY RF: 0 cholecalciferol (vitamin D3) 2,000 UNIT capsule 4,000 unit GT DAILY RF: 0 acidophilus-pectin, citrus 1 TABLET tablet 1 tab GT DAILY RF: 0 diphenhydramine HCl 12.5 mg/5 mL Elixir 12.5 mg PO BID PRN PRN (Reason: Secretions) RF: 0 fluticasone propionate 44 mcg/actuation Hfa Aerosol Inhaler 2 puff INHALATION BID RF: 0 fexofenadine 30 mg/5 mL Suspension 60 mg PO BID PRN PRN (Reason: Allergy Symptoms) RF: 0 ferrous sulfate 15 mg iron (75 mg)/mL Syringe 60 mg PO DAILY RF: 0 ertapenem 1 gram Recon Soln 1 g IV Q24H 28 Days Qty: 28 RF: 0 cetirizine [Children's Zyrtec Allergy] 1 mg/mL solution 10 mg PO QDAY PRN (Reason: allergy symptoms) Qty: 480 RF: 6 levalbuterol HCl 1.25 mg/3 mL solution for nebulization 1.25 mg INHALATION BID Qty: 90 RF: 6 Primary Care Provider: Sandra Bermudez Referrals: Sandra Bermudez DO [Primary Care Provider] - Disposition Disposition: Acute Care Hospital [facility]
--- NOTE | 2021-05-20 12:45 | RAD_ITS ---
STUDY: X-RAY CHEST REASON FOR EXAM: Female, 31 years old. 2 day history of fever and wheezing. TECHNIQUE: Single AP portable view of the chest. COMPARISON: Comparison is made with prior study dated 10/23/2020. FINDINGS: EKG electrodes are seen. A tracheostomy tube is in situ. This is unchanged. Mild degree of persistent increased markings at the left lung base suggestive of left basilar atelectasis and/or early infiltrate. There is stable elevation of the left hemidiaphragm. The right lung is clear. There is no demonstrated pleural abnormality. Normal size heart. Normal mediastinum and glenn. Normal visualized pulmonary arteries. Normal visualized aortic arch and descending thoracic aorta. There is a marked dextroscoliosis of the thoracic spine with SOLIS angelo fixation device.. Normal visualized ribs, clavicles, and shoulders. There is no demonstrated abnormality of the visualized soft tissue structures of the upper abdomen. RAD/Chest 1 View (Portable) IMPRESSION: Moderate dextroscoliosis. Stable elevation of the left hemidiaphragm with persistent atelectasis and/or infiltrate at the left lung base. Electronically Signed: Francisco Vogt MD at 13:01 EDT , Service support ,
[2021-05-20 13:49] LABS: Absolute Lymphocyte Count 0.64 X10^3/uL (0.83-4.51); Absolute Neutrophil Count 14.4 X10^3/uL (2.0-7.7); Basophil# 0.03 X10^3/uL; Basophil% 0.2 % (0-1); Eosinophil# 0.03 X10^3/uL; Eosinophils% 0.2 % (0-5); Hematocrit 34.1 % (37-47); Hemoglobin 11.8 g/dL (12.0-15.0); Lymphocyte # 0.64 X10^3/ul (0.83-4.51); Lymphocyte % 3.6 % (19-41); Mean Corp Hgb Conc 34.6 g/dL (32-36); Mean Corpuscular Hgb 31.8 pg (27.0-32.0); Mean Corpuscular Volume 91.9 fL (81-99); Mean Platelet Vol. 9.9 fl (6.2-12.0); Monocyte% 13.1 % (0-10); NRBC Flagged by Analyzer 0 % (0-5); Neutrophil # 14.41 X10^3/uL (2.7-7.7); Neutrophil % 82.1 % (47-70); POSITIVE DIFFERENTIAL YES; Platelet Count 284 K/mm3 (150-450); RBC Distribution Width CV 12.4 % (11.6-14.6); RBC Distribution Width SD 41.1 fl (35.1-43.9); Red Blood Count 3.71 M/mm3 (4.2-5.4); White Blood Count 17.6 K/mm3 (4.4-11.0)
[2021-05-20 13:52] LABS: Differential Indicated SCAN CRITERIA MET
[2021-05-20 14:02] LABS: ALB/GLOB Ratio 0.8 RATIO (0.9-2.4); AST(SGOT) 51 U/L (15-37); Alanine Aminotransfer ALT/SGPT 49 U/L (13-56); Albumin, Serum 3.7 g/dL (3.2-5.0); Alkaline Phosphatase 98 U/L (45-117); Anion Gap 6 (5-15); BUN 7 mg/dL (7-18); BUN/Creat Ratio 14.4 RATIO (10-20); Calcium,Total 9.4 mg/dL (8.5-10.1); Chloride 95 mmol/L (98-107); Creatinine, Serum 0.49 mg/dL (0.55-1.02); EST Glomerular Filtration Rate 158 mL/min (>60); Est Glom Filt Rate - Afr Amer 191 mL/min (>60); Estimated Creatinine Clearance 124.48 ml/min; Globulin 4.6 g/dL (2.2-4.2); Glucose 169 mg/dL (74-106); Potassium 3.4 mmol/L (3.5-5.1); Protein, Total 8.3 g/dL (6.4-8.2); Sodium Level 131 mmol/L (136-145)
[2021-05-20 14:04] LABS: International Normalized Ratio 1.2; Partial Thromboplast Time 28.5 Seconds (24.1-36.2)
[2021-05-20 14:11] LABS: Mucous, Urine 0 SEEN /hpf (<or=2+); Red Blood Cells-Urine 0 SEEN /hpf (0-5)
[2021-05-20 14:16] LABS: Lactic Acid 2.9 mmol/L (0.4-1.9)
[2021-05-20 14:25] LABS: Color, Urine Yellow (Yellow); Glucose, Dipstick 1000 mg/dl (Normal); Ketone-Dipstick 5 mg/dl (Negative); Leukocyte Esterase-Dipstick 500 /ul (Negative); Nitrite-Dipstick Positive (Negative); Occult Blood-Urine 150 /ul (Negative); Protein-Dipstick 30 mg/dl (Negative); Urine Bilirubin Dipstick Negative (Negative); Urine Clarity Sl. Cloudy (Clear); Urine Urobilinogen Normal (Normal)
--- NOTE | 2021-05-20 14:30 | CT_ITS ---
STUDY: CT ABDOMEN AND PELVIS WITHOUT CONTRAST REASON FOR EXAM: Female, 31 years old. Flank pain. RADIATION DOSAGE (If Supplied By Facility): CTDIvol = ( 7.68 ) mGy, DLP = ( 358.61 ) mGycm TECHNIQUE: Transaxial images were obtained from the dome of the diaphragm to the symphysis pubis without oral contrast, and without intravenous contrast. Sagittal and coronal images were reconstructed. Individualized dose optimization techniques were used for this CT. COMPARISON: Comparison is made with prior study of 02/08/2021. FINDINGS: Patchy infiltrate in the posterior medial segment of the left lower lobe. The visualized portions of the heart are within normal limits. Normal liver. Normal gallbladder and extrahepatic biliary system. Normal spleen. Normal pancreas. Normal bilateral adrenal glands. There are multiple nonobstructive right intrarenal calculi. The largest calculus measures 9.5 mm and is in the mid pole calyx. There is suggestion of a right staghorn calculus. Normal left kidney. A PEG tube is seen within the body of the stomach inferiorly. Normal small intestine. Normal colon. The appendix is visualized and appears normal. Normal abdominal aorta. Normal inferior vena cava. Normal retroperitoneum. Distended urinary bladder. Mild degree of bladder wall thickening more prominent on the left side as well as posteriorly. There is a 3.8 mm calculus at the base of the bladder on the left side. This may represent a recently passed stone. Normal abdominal wall. Marked degree of dextro scoliosis. Accounting angelo fixation device is seen. CT/Abdomen/Pelvis without Cont IMPRESSION: Multiple nonobstructive right intrarenal calculi as described. 3.8 mm calculus at the base of the bladder on the left side. This may represent a recently passed ureteral calculus. Marked degree of levoconvex scoliosis. Electronically Signed: Francisco Vogt MD at 15:23 EDT , Service support ,
[2021-05-20 14:32] LABS: Bacteria 1+ /hpf (None Seen); Squamous Epithelial Cells - UA 0-5 SEEN /hpf (5-10); White Blood Cells >100 SEEN /hpf (0-5)
--- NOTE | 2021-05-20 14:34 | PCM.HP.STD ---
HPI - General General Date of Admission: 05/20/21 Date of Service: 05/20/21 Chief Complaint: Fever, tachycardia, increased respiratory requirements. HPI Narrative The patient is a 31 y/o F w/ PMHx: Chronic normocytic anemia, Chronic hyponatremia, Diabetes mellitus type II, Hx C-difficile, GERD s/p Jorje fundoplication, Cerebral palsy with spastic hemiplegia with seizure disorder with associated MRDD s/p spinal fusion with hardware, tracheostomy, GT, baclofen pump hx who presents to the [facility] ED on 05/20/21 with history of increased tachycardia, fever 101-102 at home, difficulty breathing prompting ED evaluation per family. She has been following w/ Dr. Bettencourt for UTIs. She does have frequent kidney stones. Work-up in the ED included T 100 temporally, heart rate 141, BP 136/101, respiratory rate initially 17, 100% Ambu bag, respiratory rate currently 30, 99% with FiO2 35, mechanically ventilated, CBC with WC 17.6, hemoglobin 11.8, platelet 284 with left shift and lymphopenia, unremarkable coags, CMP with sodium 131, potassium 3.4, chloride 95, BUN/creatinine 7/0.49, glucose 169, lactic acid 2.9, AST/LT 51/49 otherwise not marked appearing hepatic profile, anion gap 6, urinalysis with urine protein 30, urine glucose 1000, urine ketones 5, urine occult blood 150, urine nitrite positive, urine leukocyte Estr[place] 500, pending urine RBC, WBC, squamous epithelial cells and bacteria, chest x-ray with moderate dextroscoliosis, stable elevation of left hemidiaphragm with persistent atelectasis and or infiltrate of the left lung base, rapid SARS Covid negative, blood culture x2 pending per ED, urine culture pending per ED. most recent urine culture 03/03/2021 with presumptive E. coli ESBL producing organism with significant resistance patterns, noted sensitive to imipenem/meropenem. CT pending given history of prior calculi. In the ED patient administered azithromycin and rocephin as well as 1L NS. [facility] Medical History Allergic rhinitis due to other allergen Amenorrhea Bronchiectasis without acute exacerbation Bronchitis C. difficile diarrhea Cellulitis of groin Cerebral palsy Chronic respiratory failure Diabetes Fungal infection of the groin Hyperglycemia Irregular menstrual cycle Lactic acid acidosis Malignant hyperthermia Mild mental retardation MRSA (methicillin resistant Staphylococcus aureus) Neuromuscular scoliosis Paraplegia Pneumonia Respiratory acidosis Seizure Severe sepsis Spastic hemiplegic cerebral palsy Streptococcus pneumoniae Thrush Visual disturbance Vitamin D deficiency Home Medications baclofen 30 mg GT TID 09/02/13 [History Last Taken 01/10/19] oxcarbazepine 300 mg/5 mL (60 mg/mL) oral suspension 8 ml GT BID ml 08/28/17 [History Last Taken 01/24/18 14:00] insulin aspart U-100 100 unit/mL (3 mL) subcutaneous pen 8 units SQ 4X/DAY 09/20/20 [History Last Taken Unknown] ferrous sulfate 60 mg PO DAILY 02/28/21 [History Last Taken Unknown] fluticasone propionate 2 puff INHALATION BID 02/28/21 [History Last Taken Unknown] levalbuterol HCl 1.25 mg/3 mL solution for nebulization 1.25 mg INHALATION BID #90 ml 03/05/21 [Rx Last Taken Unknown] cholecalciferol (vitamin D3) 10 mcg FEEDING TUBE DAILY 05/20/21 [History Last Taken Unknown] diazepam 5 mg FEEDING TUBE DAILY@1400 05/20/21 [History Last Taken 05/20/21] diazepam 7 mg FEEDING TUBE BID 05/20/21 [History Last Taken 05/20/21] methenamine hippurate [Hiprex] 1 g FEEDING TUBE BID 05/20/21 [History Last Taken 05/20/21] Allergy/AdvReac Type Severity Reaction Status Date / Time linezolid Allergy Severe Other - Verified 05/20/21 11:59 seizure & coma vancomycin Allergy Severe Other - Verified 05/20/21 11:59 kidney failure tobramycin Allergy Intermediate Other - Verified 05/20/21 11:59 turned beet red nafcillin Allergy Mild Rash Verified 05/20/21 11:59 benzoin Allergy Unknown Rash Verified 05/20/21 11:59 milk Allergy Unknown Other Verified 05/20/21 11:59 soy Allergy Unknown Other Verified 05/20/21 11:59 polyethylene glycol 3350 AdvReac Unknown Hives Verified 05/20/21 11:59 [From Miralax] Family History Grandmother Cancer maternal Other Adopted adopted (Patient adopted, unclear maternal/paternal family history.) Surgical History derotatox ostomies eyes straightened Gastrostomy tube in place H/O spinal fusion Presence of intrathecal baclofen pump rods to back Status post Jorje fundoplication surgery on gland under tongue tendonatomies Tracheostomy status Social History household members: other details: Mother and is vent dependent housing: house Smoking Status: Never smoker second hand exposure: No alcohol intake: never substance use type: does not use ROS ROS Narrative Per Mother present: Admission Review of Systems: CONSTITUTIONAL: No weight loss, + fever, weakness or fatigue. HEENT: + Unchanged oral/trach secretions, flushed face. Eyes: No visual loss, blurred vision, double vision or yellow sclerae. Ears, Nose, Throat: No hearing loss, sneezing, congestion, runny nose or sore throat. SKIN: No rash or itching, lesions, wounds. CARDIOVASCULAR: No chest pain, chest pressure or chest discomfort, palpitations, edema, orthopnea, syncopal events. RESPIRATORY: + Appearance dyspnea, No recent marked cough, increased secretions, wheezing, hemoptysis. GASTROINTESTINAL: No ovious anorexia, nausea, vomiting or diarrhea, abdominal pain, melena, BRBPR. GENITOURINARY: No dysuria, frequency, urgency or retention. NEUROLOGICAL: + Chronic debility with chronic lower extremity muscle wasting, contractures, cerebral palsy with spastic hemiplegia. No headache, dizziness, syncope, change in bowel/bladder, seizure. MUSCULOSKELETAL: No muscle, back pain, joint pain or stiffness. HEMATOLOGIC: No anemia, bleeding or bruising. LYMPHATICS: No enlarged nodes. No history of splenectomy. PSYCHIATRIC: No history of depression or anxiety. ENDOCRINOLOGIC: No reports of sweating, cold or heat intolerance. No polyuria or polydipsia. ALLERGIES: No history of asthma, hives, eczema or rhinitis. Review of Systems ROS Unobtainable: due to mental condition Vital Signs Vital Signs Vital Signs: 05/20/21 11:59 05/20/21 12:03 05/20/21 12:04 Temperature 100 F H Temperature Source Temporal Pulse Rate 141 H Respiratory Rate 17 Respiratory Effort Normal Non-Labored Respiratory Depth Normal Respiratory Pattern Normal Blood Pressure 136/101 H Blood Pressure Mean 112 Pulse Ox 100 Oxygen Delivery Method Ambu-Bag Fraction of Inspired Oxygen (FIO2) 05/20/21 12:44 05/20/21 12:45 05/20/21 13:30 Temperature Temperature Source Pulse Rate 144 H Respiratory Rate 30 H Respiratory Effort Respiratory Depth Respiratory Pattern Blood Pressure Blood Pressure Mean Pulse Ox 99 98 Oxygen Delivery Method Mechanical Ventilator Fraction of Inspired Oxygen (FIO2) 35 30 05/20/21 14:33 Temperature 98.5 F Temperature Source Temporal Pulse Rate 147 H Respiratory Rate 38 H Respiratory Effort Respiratory Depth Respiratory Pattern Blood Pressure 129/81 H Blood Pressure Mean 97 Pulse Ox 98 Oxygen Delivery Method Mechanical Ventilator Fraction of Inspired Oxygen (FIO2) Weight Weight: 104 lb 7.986 oz Body Mass Index (BMI) 0.0 Results Lab / Micro Data Result Diagrams: 05/20/21 13:35 05/20/21 13:35 Labs: Laboratory Results - last 24 hr 05/20/21 13:35: WBC 17.6 H, RBC 3.71 L, Hgb 11.8 L, Hct 34.1 L, MCV 91.9, MCH 31.8, MCHC 34.6, RDW Std Deviation 41.1, RDW Coeff of Anne 12.4, Plt Count 284, MPV 9.9, Immature Gran % (Auto) 0.800, Neut % (Auto) 82.1 H, Lymph % (Auto) 3.6 L, [place] % (Auto) 13.1 H, Eos % (Auto) 0.2, Baso % (Auto) 0.2, Absolute Neuts (auto) 14.4 H, Absolute Lymphs (auto) 0.64 L, Nucleated RBC % 0 05/20/21 13:35: PT 14.0, INR 1.2, APTT 28.5 05/20/21 13:35: Sodium 131 L, Potassium 3.4 L, Chloride 95 L, Carbon Dioxide 30.0, Anion Gap 6, BUN 7, Creatinine 0.49 L, Estim Creat Clear Calc 124.48, Est GFR (MDRD) Af Amer 191, Est GFR (MDRD) Non-Af 158, BUN/Creatinine Ratio 14.4, Glucose 169 H, Calcium 9.4, Total Bilirubin 0.20, AST 51 H, ALT 49, Alkaline Phosphatase 98, Total Protein 8.3 H, Albumin 3.7, Globulin 4.6 H, Albumin/Globulin Ratio 0.8 L 05/20/21 13:35: Lactic Acid 2.9 H* 05/20/21 14:05: Urine Color Yellow, Urine Clarity Sl. Cloudy, Urine pH 7.0, Ur Specific [place] 1.010, Urine Protein 30 H, Urine Glucose (UA) 1000 H, Urine Ketones 5 H, Urine Occult Blood 150 H, Urine Nitrite Positive H, Urine Bilirubin Negative, Urine Urobilinogen Normal, Ur Leukocyte Esterase 500 H, Urine RBC 0 SEEN, Urine WBC >100 SEEN, Ur Squamous Epith Cells 0-5 SEEN, Urine Bacteria 1+, Urine Mucus 0 SEEN Micro: Microbiology 05/20/21 13:45 Nasal Secretion SARS-CoV-2 Antigen (Rapid) - Final Radiology Impression Chest X-Ray 05/20/21 12:45 IMPRESSION: Moderate dextroscoliosis. Stable elevation of the left hemidiaphragm with persistent atelectasis and/or infiltrate at the left lung base. Electronically Signed: Francisco Vogt MD at 13:01 EDT , Service support , Assessment & Plan Assessment/Plan (1) Sepsis: QUALIFIERS: Sepsis type: sepsis due to unspecified organism Sepsis acute organ dysfunction status: with acute organ dysfunction Severe sepsis acute organ dysfunction type: acute respiratory failure Acute respiratory failure type: with hypoxia Severe sepsis shock status: without septic shock Qualified Code(s): A41.9 - Sepsis, unspecified organism; R65.20 - Severe sepsis without septic shock; J96.01 - Acute respiratory failure with hypoxia (2) Complicated UTI (urinary tract infection): (3) Pneumonia: QUALIFIERS: Pneumonia type: due to unspecified organism Laterality: left Lung location: lower lobe of lung Qualified Code(s): J18.9 - Pneumonia, unspecified organism (4) Acute and chronic respiratory failure: QUALIFIERS: Respiratory failure complication: hypoxia Qualified Code(s): J96.21 - Acute and chronic respiratory failure with hypoxia PLAN: The patient is a 31 y/o F w/ PMHx: Chronic normocytic anemia, Chronic hyponatremia, Diabetes mellitus type II, Hx C-difficile, GERD s/p Jorje fundoplication, Cerebral palsy with spastic hemiplegia with seizure disorder with associated MRDD s/p spinal fusion with hardware, tracheostomy, GT, baclofen pump hx who presents to the [facility] ED on 05/20/21 with history of increased tachycardia, fever 101-102 at home, difficulty breathing prompting ED evaluation per family. 1. Acute Sepsis secondary to Acute on Chronic Hypoxic Respiratory Failure secondary to LLL Pneumonia, Possible GN/GP organisms and Complicated UTI with indwelling suprapubic catheter: Will admit to the ICU, continue transition to ventilator management via trach, ICU/Pulm and ID Consulted, pending CT given history of calculi to assure no obstructing stones--if present will consult Nephrology, continue scheduled levalbuterol, maintain on IV meropenem and vancomycin given history and resistance patterns with de-escalation/changes per ID discretion and pending further results, HOB, IS parameters w/ pending sputum cultures, respiratory viral panel and urine antigens. Bld cx x 2 obtained in the ED. UCx pending. 2. Hypokalemia: Admission K+ 3.4, magnesium level requested, supplementation given, repeat level in AM. Chronic normocytic anemia: Admission hemoglobin 11.9, baseline 10-11, stable, trend. 3. Spastic quadriplegic cerebral palsy with seizure disorder: We will continue G-tube feeds per home regimen as well as flushes, continue baclofen, diazepam, Trileptal, nutrition consulted for assistance, positional changes. 4. Chronic Hyponatremia with suspected mild acute component, hypovolemic: Admission sodium mildly decreased 131, chloride 95, will continue judicious hydration, repeat CMP in AM. 5. Diabetes mellitus type II: Will continue home insulin regimen, continue TFs, accu checks w/ ISS. 6. Hx Microalbuminuria: Previously initiated on lisinopril regimen, not tolerated well, continue aggressive DM control. 7. DVT prophylaxis: SCDs, Lovenox. 8. CODE status: Patient OVIDIO is her mother who is present. Discussed CODE status at length including difference between FULL code, DNR-CCA and DNR-CC status. Following discussions about the differences in these status, requested DNR-CCA, allowance of continued ventilation via tracheostomy given current status. Advanced Care Planning Face to Face Time: 16 minutes. Charges/Coding Visit Charges Inpatient E&M: 83481 Init Hosp L3 Procedures Hospitalists Procedures: 59695 Advncd Care Plan 30 Min
[2021-05-20 14:35] LABS: Platelet Estimate ADEQUATE (ADEQ); Red Cell Morphology NORM C+C NORMAL (NORM C&C)
--- NOTE | 2021-05-20 14:38 | NURSING ---
DR LAGUERRE IN ER
--- NOTE | 2021-05-20 14:45 | NURSING ---
ICU WHITE PNEUMONIA, SEPSIS, UTI
[2021-05-20] MEDS: Ceftriaxone 1 GM/50 ML BAG IV (15:17)
[2021-05-20 15:52] LABS: Magnesium 2.4 mg/dL (1.6-2.6); Phosphorus 2.2 mg/dL (2.5-4.9)
--- NOTE | 2021-05-20 17:02 | PCS.PANDOC ---
PANDEMIC DOCUMENTATION INITIATED: Date: 04/28/2021 Time: 190
[2021-05-20] MEDS: 0.9% Normal Saline 1,000 ML 100 ML IV (17:20)
[2021-05-20 17:41] LABS: Reflex Lactate? Y
[2021-05-20] MEDS: Insulin Lispro 100 UNIT/ML INSULN.PEN 8 UNIT SC ×2 (18:21→22:08)
[2021-05-20] MEDS: Potassium Chloride Oral Soln 20 MEQ/15 ML UDC 40 MEQ GT (18:21)
[2021-05-20 18:41] LABS: Bedside Glucose 146 mg/dL (70-110)
[2021-05-20] MEDS: diazePAM 2 MG Tablet GT (20:45)
[2021-05-20] MEDS: Baclofen 10 MG Tablet 30 MG GT (20:45)
[2021-05-20] MEDS: Famotidine 20 MG Tablet GT (20:45)
[2021-05-20] MEDS: Acetaminophen 650 MG/20 ML UDC GT (20:46)
[2021-05-20] MEDS: Methenamine Hippurate 1 GM Tablet PO (20:49)
--- NOTE | 2021-05-20 21:02 | PCM.RX.CS ---
Consult Pharmacy has been consulted to manage selected antiobiotic: Vancomycin Type of Consult: New start Suspected Infection: Pneumonia Labs: Sodium 131 mmol/L (136-145) L 05/20/21 13:35 Potassium 3.4 mmol/L (3.5-5.1) L 05/20/21 13:35 Chloride 95 mmol/L (98-107) L 05/20/21 13:35 Carbon Dioxide 30.0 mmol/L (21.0-32.0) 05/20/21 13:35 Anion Gap 6 (5-15) 05/20/21 13:35 BUN 7 mg/dL (7-18) 05/20/21 13:35 Creatinine 0.49 mg/dL (0.55-1.02) L 05/20/21 13:35 Est GFR (MDRD) Af Amer 191 mL/min (>60) 05/20/21 13:35 Est GFR (MDRD) Non-Af 158 mL/min (>60) 05/20/21 13:35 BUN/Creatinine Ratio 14.4 RATIO (10-20) 05/20/21 13:35 Glucose 169 mg/dL (74-106) H 05/20/21 13:35 Microbiology: Microbiology 05/20/21 14:37 Mucosa - Nose Respiratory Panel (PCR) - Final 05/20/21 14:05 Urine Catheter - Catheter Legionella Antigen - Final 05/20/21 14:05 Urine Catheter - Catheter Streptococcus pneumoniae Antigen (M - Final 05/20/21 13:45 Nasal Secretion SARS-CoV-2 Antigen (Rapid) - Final Goal Trough: 15-20 mcg/mL Pharmacy Plan for Drug Dosing: NEW START IV VANCOMYCIN Consulting Physician: Ruth Indication: pneumonia Goal Trough: 15-20 SrCr: 0.49 CrCl: 119 mls/min (using Clinical Pharmacology to calculate) Comments: pt received a x1 1250mg (25 mg/kg) dose 05/20/21 at 2042 Vancomcyin Dose: based on pts weight and renal function recommend an initial dose of 750mg q8h starting 05/21/21 at 0500. trough before the 4th total dose Pending Level: 05/21/21 at 2030 Pharmacy Service will continue to monitor and adjust dosing as required. Follow-Up Labs: Trough Vancomycin - 05/21/21 at 2030
[2021-05-20 21:15] LABS: Lactic Acid 2.6 mmol/L (0.4-1.9)
[2021-05-20] MEDS: Albuterol 2.5 MG/3 ML VIAL.NEB. INHALATION (21:18)
[2021-05-20] MEDS: Budesonide Respules 0.5 MG/2 ML AMPUL.NEB. INHALATION (21:19)
[2021-05-20 21:31] LABS: Bedside Glucose 192 mg/dL (70-110)
--- NOTE | 2021-05-20 21:41 | NURSING ---
Pt has cuffed #5 trach, currently connected to facility vent. Father at bedside, managing secretions with home suction
[2021-05-20] MEDS: Insulin Lispro 100 UNIT/ML INSULN.PEN SC (22:09)
--- NOTE | 2021-05-20 22:31 | NURSING ---
Pt placed on home vent by respiratory. SIMV mode.
--- NOTE | 2021-05-20 22:34 | NURSING ---
Father at bedside managing secretions with home suction
--- NOTE | 2021-05-20 23:44 | CPS ---
Pt placed on home ventilator at this time
[2021-05-21] VITALS (22 sets, daily range): BP systolic 81–109; BP diastolic 49–79; PULSE 59–127; RESP 10–20; TEMP 36.7–37.3; O2SAT 97–100
[2021-05-21] MEDS: 0.9% Normal Saline 1,000 ML 60 ML IV (01:18)
[2021-05-21] MEDS: diazePAM 2 MG Tablet GT ×2 (06:20→20:17)
[2021-05-21] MEDS: Baclofen 10 MG Tablet 30 MG GT ×3 (06:21→20:16)
[2021-05-21 06:31] LABS: Bedside Glucose 109 mg/dL (70-110)
--- NOTE | 2021-05-21 06:55 | EX.PCM.CONCC ---
Assessment & Plan Assessment/Plan (1) Chronic respiratory failure: QUALIFIERS: Respiratory failure complication: hypoxia Qualified Code(s): J96.11 - Chronic respiratory failure with hypoxia (2) Sepsis: QUALIFIERS: Acute respiratory failure type: with hypoxia Sepsis acute organ dysfunction status: with acute organ dysfunction Sepsis type: sepsis due to unspecified organism Severe sepsis acute organ dysfunction type: acute respiratory failure Severe sepsis shock status: without septic shock Qualified Code(s): A41.9 - Sepsis, unspecified organism; R65.20 - Severe sepsis without septic shock; J96.01 - Acute respiratory failure with hypoxia PLAN: RECOMMENDATIONS: 1. Continue empiric antimicrobials while awaiting infectious work-up. 2. Continue vent support per home regimen. 3. Continue tube feeds per home regimen. 4. Consider urology consultation given recurrent nature of the patient's urinary tract infections. 5. The patient is medically stable for transfer out of the intensive care unit. IMPRESSIONS: 1. Complicated UTI I do suspect that the patient's presenting symptoms were likely secondary to recurrent urinary tract source of infection and possible pneumonia. The patient does have a history of ESBL E. coli, which required protracted treatment under the discretion of infectious diseases. Recommend continuing antimicrobials as ordered while awaiting infectious work-up. Infectious diseases consultation is pending. The patient remains hemodynamically stable. 2. Possible gram-negative pneumonia The patient's chest imaging revealed a vague possible infiltrate and sputum Gram stain is demonstrating 3+ gram-negative angelo. Continue current antimicrobial coverage. Despite this, the patient is at her baseline from a respiratory perspective. Continue baseline vent support. 3. Chronic respiratory failure Continue baseline ventilatory support per home regimen. 4. History of spastic quadriplegia/cerebral palsy Complicates care, management, recovery and prognosis. Continue home medications as indicated. This note was generated with [employer] software. It may contain incorrect words, spelling, and punctuation that were not noted in checking the note before signing. HPI Consult Data Date of Consult: 05/22/21 HPI Narrative Reason for Consultation: Sepsis HPI Narrative: The patient is a 31-year-old female, with a history as outlined below, who presented to the emergency department on May 20 with fever and tachycardia. The patient has a history of cerebral palsy with spastic quadriplegia along with chronic respiratory failure with tracheostomy in situ. The patient was last admitted to the hospital in February 2021 with sepsis secondary to complicated UTI due to ESBL E. coli. The patient was treated by infectious diseases with ertapenem for 4 weeks. On presentation to the emergency department, the patient was noted to have a low-grade fever and was tachycardic and hypoxemic. Initial laboratory evaluation revealed an elevated white blood cell count 18,000. Coagulation profile was unremarkable. Chemistry profile was notable for a sodium of 131, potassium of 3.4, and chloride of 95. Lactate was elevated to 2.9. Phosphorus was low at 2.2. Urine analysis was positive for nitrites, leukocyte esterase, greater than 100 WBC and 1+ urine bacteria. Coronavirus PCR was negative. Chest x-ray demonstrated left basilar atelectasis. CT abdomen/pelvis revealed multiple nonobstructive right calculi. Blood and urine cultures were obtained. The patient received supplemental IV fluid hydration and was started on broad-spectrum antimicrobials. She was subsequently admitted to the medical intensive care unit for further management. [facility] Medical History Allergic rhinitis due to other allergen Amenorrhea Bronchiectasis without acute exacerbation Bronchitis C. difficile diarrhea Cellulitis of groin Cerebral palsy Chronic respiratory failure Diabetes Fungal infection of the groin Hyperglycemia Irregular menstrual cycle Kidney stones Lactic acid acidosis Malignant hyperthermia Mild mental retardation MRSA (methicillin resistant Staphylococcus aureus) Neuromuscular scoliosis Paraplegia Pneumonia Respiratory acidosis Seizure Severe sepsis Spastic hemiplegic cerebral palsy Streptococcus pneumoniae Thrush Visual disturbance Vitamin D deficiency Home Medications baclofen 30 mg GT TID 09/02/13 [History Last Taken 05/20/21] oxcarbazepine 300 mg/5 mL (60 mg/mL) oral suspension 8 ml GT BID ml 08/28/17 [History Last Taken 05/20/21] insulin aspart U-100 100 unit/mL (3 mL) subcutaneous pen 8 units SQ 4X/DAY 09/20/20 [History Last Taken 05/20/21] ferrous sulfate 60 mg FEEDING TUBE DAILY 02/28/21 [History Last Taken 05/20/21] fluticasone propionate 2 puff INHALATION BID 02/28/21 [History Last Taken 05/20/21] levalbuterol HCl 1.25 mg/3 mL solution for nebulization 1.25 mg INHALATION BID #90 ml 03/05/21 [Rx Last Taken 05/20/21] cholecalciferol (vitamin D3) 10 mcg FEEDING TUBE DAILY 05/20/21 [History Last Taken Unknown] diazepam 5 mg FEEDING TUBE DAILY@1400 05/20/21 [History Last Taken 05/20/21] diazepam 7 mg FEEDING TUBE BID 05/20/21 [History Last Taken 05/20/21] methenamine hippurate [Hiprex] 1 g FEEDING TUBE BID 05/20/21 [History Last Taken 05/20/21] Allergy/AdvReac Type Severity Reaction Status Date / Time linezolid Allergy Severe Other - Verified 05/20/21 11:59 seizure & coma vancomycin Allergy Severe Other - Verified 05/20/21 11:59 kidney failure tobramycin Allergy Intermediate Other - Verified 05/20/21 11:59 turned beet red nafcillin Allergy Mild Rash Verified 05/20/21 11:59 benzoin Allergy Unknown Rash Verified 05/20/21 11:59 milk Allergy Unknown Other Verified 05/20/21 11:59 soy Allergy Unknown Other Verified 05/20/21 11:59 polyethylene glycol 3350 AdvReac Unknown Hives Verified 05/20/21 11:59 [From Miralax] Family History Grandmother Cancer maternal Other Adopted Surgical History derotatox ostomies eyes straightened Gastrostomy tube in place H/O spinal fusion Presence of intrathecal baclofen pump rods to back Status post Jorje fundoplication surgery on gland under tongue tendonatomies Tracheostomy status Social History household members: other details: Mother and is vent dependent housing: house Smoking Status: Never smoker second hand exposure: No alcohol intake: never substance use type: does not use ROS Review of Systems ROS Unobtainable: due to mental condition and due to mental status Physical Exam Const alert and no apparent distress Constitutional Narrative: Baseline nonverbal status. HEENT normocephalic and head/scalp atraumatic HEENT Narrative: Macroglossia present Eyes PERRL and conjunctivae normal Neck supple Neck Narrative: Tracheostomy site intact. General: trachea midline Resp Auscultation: diminished lung sounds; Negative for rales, rhonchi or wheezes Cardio regular rate and regular rhythm GI normal to inspection, nondistended, normoactive bowel sounds Extremity Extremity Narrative: Contracted extremities with spastic quadriplegia General Extremity: Negative for clubbing or edema Skin no rashes or lesions noted Neuro Neuro Narrative: Baseline neurological status Psych Mood & Affect: flat affect Lab / Micro Data Result Diagrams: 05/21/21 07:00 05/21/21 07:00 Labs: Laboratory Results - last 24 hr 05/20/21 13:35: WBC 17.6 H, RBC 3.71 L, Hgb 11.8 L, Hct 34.1 L, MCV 91.9, MCH 31.8, MCHC 34.6, RDW Std Deviation 41.1, RDW Coeff of Anne 12.4, Plt Count 284, MPV 9.9, Immature Gran % (Auto) 0.800, Neut % (Auto) 82.1 H, Lymph % (Auto) 3.6 L, Rains % (Auto) 13.1 H, Eos % (Auto) 0.2, Baso % (Auto) 0.2, Absolute Neuts (auto) 14.4 H, Absolute Lymphs (auto) 0.64 L, Nucleated RBC % 0, Differential Comment , Diff Path Review May foll, Platelet Estimate ADEQUATE, RBC Morphology NORM C+C 05/20/21 13:35: PT 14.0, INR 1.2, APTT 28.5 05/20/21 13:35: Sodium 131 L, Potassium 3.4 L, Chloride 95 L, Carbon Dioxide 30.0, Anion Gap 6, BUN 7, Creatinine 0.49 L, Estim Creat Clear Calc 124.48, Est GFR (MDRD) Af Amer 191, Est GFR (MDRD) Non-Af 158, BUN/Creatinine Ratio 14.4, Glucose 169 H, Calcium 9.4, Total Bilirubin 0.20, AST 51 H, ALT 49, Alkaline Phosphatase 98, Total Protein 8.3 H, Albumin 3.7, Globulin 4.6 H, Albumin/Globulin Ratio 0.8 L 05/20/21 13:35: Lactic Acid 2.9 H* 05/20/21 13:35: Phosphorus 2.2 L, Magnesium 2.4 05/20/21 14:05: Urine Color Yellow, Urine Clarity Sl. Cloudy, Urine pH 7.0, Ur Specific [place] 1.010, Urine Protein 30 H, Urine Glucose (UA) 1000 H, Urine Ketones 5 H, Urine Occult Blood 150 H, Urine Nitrite Positive H, Urine Bilirubin Negative, Urine Urobilinogen Normal, Ur Leukocyte Esterase 500 H, Urine RBC 0 SEEN, Urine WBC >100 SEEN, Ur Squamous Epith Cells 0-5 SEEN, Urine Bacteria 1+, Urine Mucus 0 SEEN 05/20/21 14:37: COVID-19 (EVAN) Not Detected 05/20/21 18:14: POC Glucose 146 H 05/20/21 20:13: Lactic Acid 2.6 H* 05/20/21 21:21: POC Glucose 192 H 05/21/21 06:23: POC Glucose 109 Micro: Microbiology 05/20/21 14:37 Mucosa - Nose Respiratory Panel (PCR) - Final 05/20/21 14:05 Urine Catheter - Catheter Legionella Antigen - Final 05/20/21 14:05 Urine Catheter - Catheter Streptococcus pneumoniae Antigen (M - Final 05/20/21 13:45 Nasal Secretion SARS-CoV-2 Antigen (Rapid) - Final Radiology Impression Chest X-Ray 05/20/21 12:45 IMPRESSION: Moderate dextroscoliosis. Stable elevation of the left hemidiaphragm with persistent atelectasis and/or infiltrate at the left lung base. Electronically Signed: Francisco Vogt MD at 13:01 EDT , Service support , Abdomen/Pelvis CT 05/20/21 14:30 IMPRESSION: Multiple nonobstructive right intrarenal calculi as described. 3.8 mm calculus at the base of the bladder on the left side. This may represent a recently passed ureteral calculus. Marked degree of levoconvex scoliosis. Electronically Signed: Francisco Vogt MD at 15:23 EDT , Service support , Charges/Coding Visit Charges Inpatient E&M: 04638 Init Hosp L3
[2021-05-21 07:07] LABS: Absolute Lymphocyte Count 1.39 X10^3/uL (0.83-4.51); Absolute Neutrophil Count 6.9 X10^3/uL (2.0-7.7); Basophil# 0.03 X10^3/uL; Basophil% 0.3 % (0-1); Hematocrit 30.9 % (37-47); Lymphocyte # 1.39 X10^3/ul (0.83-4.51); Lymphocyte % 14.1 % (19-41); Mean Corp Hgb Conc 32.4 g/dL (32-36); Mean Corpuscular Hgb 31.4 pg (27.0-32.0); Mean Corpuscular Volume 97.2 fL (81-99); Mean Platelet Vol. 9.9 fl (6.2-12.0); Monocyte# 1.28 X10^3/uL; NRBC Flagged by Analyzer 0 % (0-5); Neutrophil # 6.92 X10^3/uL (2.7-7.7); Neutrophil % 70.1 % (47-70); Platelet Count 243 K/mm3 (150-450); RBC Distribution Width CV 12.7 % (11.6-14.6); RBC Distribution Width SD 45.7 fl (35.1-43.9); Red Blood Count 3.18 M/mm3 (4.2-5.4); White Blood Count 9.9 K/mm3 (4.4-11.0)
[2021-05-21 07:24] LABS: ALB/GLOB Ratio 0.7 RATIO (0.9-2.4); AST(SGOT) 12 U/L (15-37); Alanine Aminotransfer ALT/SGPT 32 U/L (13-56); Albumin, Serum 2.7 g/dL (3.2-5.0); Alkaline Phosphatase 72 U/L (45-117); Anion Gap 4 (5-15); BUN 7 mg/dL (7-18); BUN/Creat Ratio 23.9 RATIO (10-20); Chloride 109 mmol/L (98-107); Creatinine, Serum 0.29 mg/dL (0.55-1.02); EST Glomerular Filtration Rate 283 mL/min (>60); Est Glom Filt Rate - Afr Amer 343 mL/min (>60); Estimated Creatinine Clearance 218.76 ml/min; Globulin 4.1 g/dL (2.2-4.2); Glucose 115 mg/dL (74-106); Potassium 4.1 mmol/L (3.5-5.1); Protein, Total 6.8 g/dL (6.4-8.2); Sodium Level 141 mmol/L (136-145)
[2021-05-21] MEDS: Budesonide Respules 0.5 MG/2 ML AMPUL.NEB. INHALATION ×2 (07:31→20:07)
[2021-05-21] MEDS: Albuterol 2.5 MG/3 ML VIAL.NEB. INHALATION ×3 (07:32→20:07)
--- NOTE | 2021-05-21 08:42 | PCM.PN.HOSP ---
Subjective Subjective Patient with history of cerebral palsy with developmental delay, tracheostomy and history of complicated UTI and staghorn calculus was admitted for fever, tachycardia and respiratory distress in ICU Patient is nonverbal and noncommunicative. I discussed with patient's father near the bedside. History mainly taken from him. Patient had tracheostomy about 10 to 15 years ago and her neck on left lateral position since then. Contracture of upper and lower extremities. History of for staghorn calculus for which she was admitted last time with severe sepsis. Did not had follow-up with [facility] urologist after discharge. Objective Data Objective Data Vital Signs: Vital Signs Temp Pulse Resp BP Pulse Ox 98.4 F 76 14 99/69 100 05/21/21 04:00 05/21/21 07:27 05/21/21 07:27 05/21/21 07:00 05/21/21 07:29 Oxygen Flow Rate (L/min) 3 Oxygen Delivery Method Nasal Cannula Weight: 108 lb 11.006 oz Body Mass Index (BMI) 24.4 Intake & Output: Intake and Output for Last 24 Hours 05/19/21 05/20/21 05/21/21 23:59 23:59 23:59 Intake Total 1274.98 / 1274.98 385 / 385 Output Total 0 / 0 Balance 1274.98 / 1274.98 385 / 385 Lab / Micro Data Result Diagrams: 05/21/21 07:00 05/21/21 07:00 Labs: Laboratory Results - last 24 hr 05/20/21 13:35: WBC 17.6 H, RBC 3.71 L, Hgb 11.8 L, Hct 34.1 L, MCV 91.9, MCH 31.8, MCHC 34.6, RDW Std Deviation 41.1, RDW Coeff of Anne 12.4, Plt Count 284, MPV 9.9, Immature Gran % (Auto) 0.800, Neut % (Auto) 82.1 H, Lymph % (Auto) 3.6 L, [place] % (Auto) 13.1 H, Eos % (Auto) 0.2, Baso % (Auto) 0.2, Absolute Neuts (auto) 14.4 H, Absolute Lymphs (auto) 0.64 L, Nucleated RBC % 0, Differential Comment , Diff Path Review January, Platelet Estimate ADEQUATE, RBC Morphology NORM C+C 05/20/21 13:35: PT 14.0, INR 1.2, APTT 28.5 05/20/21 13:35: Sodium 131 L, Potassium 3.4 L, Chloride 95 L, Carbon Dioxide 30.0, Anion Gap 6, BUN 7, Creatinine 0.49 L, Estim Creat Clear Calc 124.48, Est GFR (MDRD) Af Amer 191, Est GFR (MDRD) Non-Af 158, BUN/Creatinine Ratio 14.4, Glucose 169 H, Calcium 9.4, Total Bilirubin 0.20, AST 51 H, ALT 49, Alkaline Phosphatase 98, Total Protein 8.3 H, Albumin 3.7, Globulin 4.6 H, Albumin/Globulin Ratio 0.8 L 05/20/21 13:35: Lactic Acid 2.9 H* 05/20/21 13:35: Phosphorus 2.2 L, Magnesium 2.4 05/20/21 14:05: Urine Color Yellow, Urine Clarity Sl. Cloudy, Urine pH 7.0, Ur Specific [place] 1.010, Urine Protein 30 H, Urine Glucose (UA) 1000 H, Urine Ketones 5 H, Urine Occult Blood 150 H, Urine Nitrite Positive H, Urine Bilirubin Negative, Urine Urobilinogen Normal, Ur Leukocyte Esterase 500 H, Urine RBC 0 SEEN, Urine WBC >100 SEEN, Ur Squamous Epith Cells 0-5 SEEN, Urine Bacteria 1+, Urine Mucus 0 SEEN 05/20/21 14:37: COVID-19 (EVAN) Not Detected 05/20/21 18:14: POC Glucose 146 H 05/20/21 20:13: Lactic Acid 2.6 H* 05/20/21 21:21: POC Glucose 192 H 05/21/21 06:23: POC Glucose 109 05/21/21 07:00: WBC 9.9, RBC 3.18 L, Hgb 10.0 L, Hct 30.9 L, MCV 97.2 D, MCH 31.4, MCHC 32.4 D, RDW Std Deviation 45.7 H, RDW Coeff of Anne 12.7, Plt Count 243, MPV 9.9, Immature Gran % (Auto) 0.500, Neut % (Auto) 70.1 H, Lymph % (Auto) 14.1 L, [place] % (Auto) 13.0 H, Eos % (Auto) 2.0, Baso % (Auto) 0.3, Absolute Neuts (auto) 6.9, Absolute Lymphs (auto) 1.39, Nucleated RBC % 0 05/21/21 07:00: Sodium 141, Potassium 4.1, Chloride 109 H, Carbon Dioxide 28.0, Anion Gap 4 L, BUN 7, Creatinine 0.29 L, Estim Creat Clear Calc 218.76, Est GFR (MDRD) Af Amer 343, Est GFR (MDRD) Non-Af 283, BUN/Creatinine Ratio 23.9 H, Glucose 115 H, Calcium 8.0 L, Total Bilirubin 0.30, AST 12 L, ALT 32, Alkaline Phosphatase 72, Total Protein 6.8, Albumin 2.7 L, Globulin 4.1, Albumin/Globulin Ratio 0.7 L Micro: Microbiology 05/20/21 14:37 Mucosa - Nose Respiratory Panel (PCR) - Final 05/20/21 14:05 Urine Catheter - Catheter Legionella Antigen - Final 05/20/21 14:05 Urine Catheter - Catheter Streptococcus pneumoniae Antigen (M - Final 05/20/21 13:45 Nasal Secretion SARS-CoV-2 Antigen (Rapid) - Final Radiography Diagnostic Testing: Radiology Impression Chest X-Ray 05/20/21 12:45 IMPRESSION: Moderate dextroscoliosis. Stable elevation of the left hemidiaphragm with persistent atelectasis and/or infiltrate at the left lung base. Electronically Signed: Francisco Vogt MD at 13:01 EDT , Service support , Abdomen/Pelvis CT 05/20/21 14:30 IMPRESSION: Multiple nonobstructive right intrarenal calculi as described. 3.8 mm calculus at the base of the bladder on the left side. This may represent a recently passed ureteral calculus. Marked degree of levoconvex scoliosis. Electronically Signed: Francisco Vogt MD at 15:23 EDT , Service support , Physical Exam Narrative General: Short stature, cerebral palsy, nonverbal noncommunicative HEENT: Atraumatic, PERRLA, EOMI. Blink eyes intermittently Oral: No Gingival or Mucosal Lesions/ Ulcerations Neck: Tracheostomy. Neck rotated on left lateral position. Lungs: Air entry diminished in bilateral lung bases. No crepitation/rhonchi Cardiovascular: Regular rate, Regular Rhythm, Normal S1, Normal S2, No murmurs Abdomen: Bowel Sounds Present, Soft, Non Tender, Non-Distended : No renal angle tenderness. No suprapubic tenderness. Extremities: No edema, Capillary Refill Less than 3 Seconds Skin: No rashes, No breakdown Musculoskeletal: Surgical scar on the left hip region in the past. Contracture of upper and lower extremities and neck. Neurological: Cranial nerves II-XII grossly intact, cerebral palsy with limited function. Psych/Mental Status: Flat affect. Assessment & Plan Assessment/Plan (1) Urinary tract infection due to extended-spectrum beta lactamase (ESBL) producing Escherichia coli: PLAN: The patient is a 31 y/o F with multiple comorbidities including suprapubic catheter is admitted for high-grade fever, features of e sepsis. 1. Sepsis secondary to Acute on Chronic Hypoxic Respiratory Failure secondary to possible LLL Pneumonia, Complicated UTI with indwelling suprapubic catheter with history of staghorn calculi: Patient is admitted in ICU. Patient on vent support through tracheostomy as per home regimen. Seen by box inspector. On broad-spectrum antibiotic vancomycin and meropenem. Tracheostomy suction and tolerating. ID consult reviewed and I agree with the plan of antibiotic and urology consult. Covid PCR negative. Chest x-ray left basilar atelectasis. CT abdomen multiple nonobstructive calculi bladder. Preliminary urine culture shows presumptive E. coli more than 1000 colonies. Tracheal preliminary Gram stain shows gram-negative angelo 3+. PCR negative. 2. Hypokalemia: Potassium is corrected. Chronic normocytic anemia: Hemoglobin is stable. Baseline 10-11, stable, trend. 3. 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 4. Chronic Hyponatremia with suspected mild acute component, hypovolemic: Admission sodium mildly decreased 131, chloride 95, repeat sodium and potassium normal. Chloride 109. 5. Diabetes mellitus type II: continue home insulin regimen, continue to feed with Accu-Cheks insulin coverage with Humalog sliding scale. 6. Hx Microalbuminuria: Patient was on on lisinopril regimen, not tolerated well, continue aggressive DM control. 7. DVT prophylaxis: SCDs, Lovenox. 8. CODE status: Patient HCPOA is her mother who is present. DNR-CCA, allowance of continued ventilation via tracheostomy given current status. Charges/Coding Visit Charges Inpatient E&M: 14050 Subs Hosp L3
[2021-05-21] MEDS: Ferrous Sulfate 300 MG/5 ML UDC 60 MG GT (09:58)
[2021-05-21] MEDS: Enoxaparin 30 MG/0.3 ML Syringe SC (09:58)
[2021-05-21] MEDS: Insulin Lispro 100 UNIT/ML INSULN.PEN 8 UNIT SC ×4 (09:59→20:57)
[2021-05-21] MEDS: Methenamine Hippurate 1 GM Tablet PO ×2 (10:00→20:17)
[2021-05-21] MEDS: Famotidine 20 MG Tablet GT ×2 (10:00→20:17)
--- NOTE | 2021-05-21 10:05 | CASEMGMT ---
RN KATIE Face to Face with patient's father, Mikey, for initial transition planning/care coordination assessment, as patient is not able to participate in assessment. RN CM introduced self and role at [facility]. Patient lying in bed, father at bedside. Mikey willing to participate in assessment and is able to answer all questions appropriately. Care providers, pharmacy, and demographics verified. Mikey wishes for patient to discharge home with resumption of HHC. Father states he has no further needs or concerns at this time. CM to follow for discharge planning needs that may arise. PCP: Sandra Bermudez Specialists: Marek, neurology; Husam, infrastructure design engineer; , rocket test fire worker; Sg, CHRIS Preferred Pharmacy: [facility] Insurance: [employer] Prescription Benefit: yes Living Will/HPOA: yes, mother Rina Montero LNOK: mother and father Living Arrangements: Patient lives with parent, who are her caregivers. Patient lives in a single story home with ramp to enter the home. Parents provided total care for patient. Transportation: [facility] DME/HHC: Father, Mikey, states that patient's DME needs are met at home. DME includes hospital bed, home ventilator, suction machine, oxygen concentrator with backup portable tanks. Patient is active with [facility] for nursing 3 days per week for 6-8 hrs per day. Disposition Plan: Patient to discharge home with resumption of HHC, family support, and follow-up plans in place. Mey WEBBER, RN, CM
[2021-05-21 10:11] LABS: Bedside Glucose 135 mg/dL (70-110)
--- NOTE | 2021-05-21 12:12 | CHAPLAIN ---
Type of Pastoral Visit _x__ Initial Visit ___ Follow-up Visit ___ On-call Visit ___ General Patient Visit ___ Spiritual Assessment ___ Family Conference ___ Bereavement ___ Rapid Response ___ Code Blue ___ Other (describe below) Pastoral Care Referral From ___ Patient _x__ Family ___ Nurse ___ Physician ___ Gear And Spline Grinder ___ Duplicator Punch Operator ___ Other (describe below) Sacrament/Intervention _x__ Active listening ___ Anointing ___ Jehovah'S Witness ___ Bereavement ___ Communion _x__ Jolie exploration ___ _x__ Life review _x__ Prayer ___ Reconciliation ___ Sacrament of Sick _x__ Supportive presence ___ Wedding ___ Other (describe below) Pastoral Comments most of visit is with mother of the patient who gives account of life and recent illness of her daughter; daughter is part of [employer] School and the family have support from jolie in God and their religious; pt awakens during the visit and introduction of support and prayer given with her
[2021-05-21 13:00] LABS: Bedside Glucose 99 mg/dL (70-110)
--- NOTE | 2021-05-21 13:38 | PCM.CONS.GEN ---
Assessment & Plan Assessment/Plan (1) Recurrent UTI: (2) Staghorn renal calculus: (3) Sepsis: QUALIFIERS: Sepsis type: sepsis due to unspecified organism Sepsis acute organ dysfunction status: with acute organ dysfunction Severe sepsis acute organ dysfunction type: acute respiratory failure Acute respiratory failure type: with hypoxia Severe sepsis shock status: without septic shock Qualified Code(s): A41.9 - Sepsis, unspecified organism; R65.20 - Severe sepsis without septic shock; J96.01 - Acute respiratory failure with hypoxia PLAN: Due to GNR uti, has recurrent esbl ecoli infection, last admit was 02/2021, discharged home on course of iv ertapenem and started on methenamine and vit C for prevention. Now here with infection again. CT done, has been passing stones at home per her mother. On vanc/meropenem. Will consult urology to see if any role for surgery/lithotripsy to help with these stones. Reviewed risks and benefits and encouraged her mother to get covid vaccination for herself and the patient. Will follow, thank you (4) Chronic respiratory failure: QUALIFIERS: Respiratory failure complication: hypoxia Qualified Code(s): J96.11 - Chronic respiratory failure with hypoxia HPI Consult Data Date of Consult: 05/21/21 HPI Narrative HPI Narrative: MANDY RIVERA, is a 31 F with cerebral palsy, trach in place, recurrent esbl ecoli uti, chronic kidney stones, presented with 1 day history of fever, dyspnea. Has been passing stones in her urine recently. Is on methenamine and vit C for prevention of uti. Has not seen urologist due to difficulties obtaining transportation and insurance coverage. She and mother have not gotten covid vaccine. Came to ED, started on azithro/ceftriaxone, broadened to vanc/meropenem, admitted to icu. CT showed bladder stone. ROS unobtainable due to mental status [facility] Medical History Allergic rhinitis due to other allergen Amenorrhea Bronchiectasis without acute exacerbation Bronchitis C. difficile diarrhea Cellulitis of groin Cerebral palsy Chronic respiratory failure Diabetes Fungal infection of the groin Hyperglycemia Irregular menstrual cycle Kidney stones Lactic acid acidosis Malignant hyperthermia Mild mental retardation MRSA (methicillin resistant Staphylococcus aureus) Neuromuscular scoliosis Paraplegia Pneumonia Respiratory acidosis Seizure Severe sepsis Spastic hemiplegic cerebral palsy Streptococcus pneumoniae Thrush Visual disturbance Vitamin D deficiency Home Medications baclofen 30 mg GT TID 09/02/13 [History Last Taken 05/20/21] oxcarbazepine 300 mg/5 mL (60 mg/mL) oral suspension 8 ml GT BID ml 08/28/17 [History Last Taken 05/20/21] insulin aspart U-100 100 unit/mL (3 mL) subcutaneous pen 8 units SQ 4X/DAY 09/20/20 [History Last Taken 05/20/21] ferrous sulfate 60 mg FEEDING TUBE DAILY 02/28/21 [History Last Taken 05/20/21] fluticasone propionate 2 puff INHALATION BID 02/28/21 [History Last Taken 05/20/21] levalbuterol HCl 1.25 mg/3 mL solution for nebulization 1.25 mg INHALATION BID #90 ml 03/05/21 [Rx Last Taken 05/20/21] cholecalciferol (vitamin D3) 10 mcg FEEDING TUBE DAILY 05/20/21 [History Last Taken Unknown] diazepam 5 mg FEEDING TUBE DAILY@1400 05/20/21 [History Last Taken 05/20/21] diazepam 7 mg FEEDING TUBE BID 05/20/21 [History Last Taken 05/20/21] methenamine hippurate [Hiprex] 1 g FEEDING TUBE BID 05/20/21 [History Last Taken 05/20/21] Allergy/AdvReac Type Severity Reaction Status Date / Time linezolid Allergy Severe Other - Verified 05/20/21 11:59 seizure & coma vancomycin Allergy Severe Other - Verified 05/20/21 11:59 kidney failure tobramycin Allergy Intermediate Other - Verified 05/20/21 11:59 turned beet red nafcillin Allergy Mild Rash Verified 05/20/21 11:59 benzoin Allergy Unknown Rash Verified 05/20/21 11:59 milk Allergy Unknown Other Verified 05/20/21 11:59 soy Allergy Unknown Other Verified 05/20/21 11:59 polyethylene glycol 3350 AdvReac Unknown Hives Verified 05/20/21 11:59 [From Miralax] Family History Grandmother Cancer maternal Other Adopted Surgical History derotatox ostomies eyes straightened Gastrostomy tube in place H/O spinal fusion Presence of intrathecal baclofen pump rods to back Status post Jorje fundoplication surgery on gland under tongue tendonatomies Tracheostomy status Social History household members: other details: Mother and is vent dependent housing: house Smoking Status: Never smoker second hand exposure: No alcohol intake: never substance use type: does not use Physical Exam Const Constitutional Narrative: ill appearing Exam Limitations: physical limitations HEENT head/scalp atraumatic Eyes PERRL and EOMs intact bilaterally Neck supple and No nodes Resp clear to auscultation bilaterally Auscultation: diminished lung sounds Cardio regular rate and regular rhythm GI normal to inspection, nondistended, normoactive bowel sounds Extremity no clubbing, cyanosis or edema Skin no rashes or lesions noted Lab / Micro Data Result Diagrams: 05/21/21 07:00 05/21/21 07:00 Labs: Laboratory Results - last 24 hr 05/20/21 13:35: WBC 17.6 H, RBC 3.71 L, Hgb 11.8 L, Hct 34.1 L, MCV 91.9, MCH 31.8, MCHC 34.6, RDW Std Deviation 41.1, RDW Coeff of Anne 12.4, Plt Count 284, MPV 9.9, Immature Gran % (Auto) 0.800, Neut % (Auto) 82.1 H, Lymph % (Auto) 3.6 L, [place] % (Auto) 13.1 H, Eos % (Auto) 0.2, Baso % (Auto) 0.2, Absolute Neuts (auto) 14.4 H, Absolute Lymphs (auto) 0.64 L, Nucleated RBC % 0, Differential Comment , Diff Path Review May foll, Platelet Estimate ADEQUATE, RBC Morphology NORM C+C 05/20/21 13:35: PT 14.0, INR 1.2, APTT 28.5 05/20/21 13:35: Sodium 131 L, Potassium 3.4 L, Chloride 95 L, Carbon Dioxide 30.0, Anion Gap 6, BUN 7, Creatinine 0.49 L, Estim Creat Clear Calc 124.48, Est GFR (MDRD) Af Amer 191, Est GFR (MDRD) Non-Af 158, BUN/Creatinine Ratio 14.4, Glucose 169 H, Calcium 9.4, Total Bilirubin 0.20, AST 51 H, ALT 49, Alkaline Phosphatase 98, Total Protein 8.3 H, Albumin 3.7, Globulin 4.6 H, Albumin/Globulin Ratio 0.8 L 05/20/21 13:35: Lactic Acid 2.9 H* 05/20/21 13:35: Phosphorus 2.2 L, Magnesium 2.4 05/20/21 14:05: Urine Color Yellow, Urine Clarity Sl. Cloudy, Urine pH 7.0, Ur Specific Kelly 1.010, Urine Protein 30 H, Urine Glucose (UA) 1000 H, Urine Ketones 5 H, Urine Occult Blood 150 H, Urine Nitrite Positive H, Urine Bilirubin Negative, Urine Urobilinogen Normal, Ur Leukocyte Esterase 500 H, Urine RBC 0 SEEN, Urine WBC >100 SEEN, Ur Squamous Epith Cells 0-5 SEEN, Urine Bacteria 1+, Urine Mucus 0 SEEN 05/20/21 14:37: COVID-19 (EVAN) Not Detected 05/20/21 18:14: POC Glucose 146 H 05/20/21 20:13: Lactic Acid 2.6 H* 05/20/21 21:21: POC Glucose 192 H 05/21/21 06:23: POC Glucose 109 05/21/21 07:00: WBC 9.9, RBC 3.18 L, Hgb 10.0 L, Hct 30.9 L, MCV 97.2 D, MCH 31.4, MCHC 32.4 D, RDW Std Deviation 45.7 H, RDW Coeff of Anne 12.7, Plt Count 243, MPV 9.9, Immature Gran % (Auto) 0.500, Neut % (Auto) 70.1 H, Lymph % (Auto) 14.1 L, [place] % (Auto) 13.0 H, Eos % (Auto) 2.0, Baso % (Auto) 0.3, Absolute Neuts (auto) 6.9, Absolute Lymphs (auto) 1.39, Nucleated RBC % 0 05/21/21 07:00: Sodium 141, Potassium 4.1, Chloride 109 H, Carbon Dioxide 28.0, Anion Gap 4 L, BUN 7, Creatinine 0.29 L, Estim Creat Clear Calc 218.76, Est GFR (MDRD) Af Amer 343, Est GFR (MDRD) Non-Af 283, BUN/Creatinine Ratio 23.9 H, Glucose 115 H, Calcium 8.0 L, Total Bilirubin 0.30, AST 12 L, ALT 32, Alkaline Phosphatase 72, Total Protein 6.8, Albumin 2.7 L, Globulin 4.1, Albumin/Globulin Ratio 0.7 L 05/21/21 09:55: POC Glucose 135 H 05/21/21 12:53: POC Glucose 99 Micro: Microbiology 05/20/21 16:45 Sputum, Induced/Lukens Gram Stain - Final 05/20/21 16:45 Sputum, Induced/Lukens Respiratory Culture - Preliminary Gram negative angelo 05/20/21 14:05 Urine Catheter - Catheter Urine Culture - Preliminary Presumptive E. coli 05/20/21 14:37 Mucosa - Nose Respiratory Panel (PCR) - Final 05/20/21 14:05 Urine Catheter - Catheter Legionella Antigen - Final 05/20/21 14:05 Urine Catheter - Catheter Streptococcus pneumoniae Antigen (M - Final 05/20/21 13:45 Nasal Secretion SARS-CoV-2 Antigen (Rapid) - Final Radiology Impression Abdomen/Pelvis CT 05/20/21 14:30 IMPRESSION: Multiple nonobstructive right intrarenal calculi as described. 3.8 mm calculus at the base of the bladder on the left side. This may represent a recently passed ureteral calculus. Marked degree of levoconvex scoliosis. Electronically Signed: Francisco Vogt MD at 15:23 EDT , Service support ,
[2021-05-21] MEDS: diazePAM 5 MG Tablet GT ×2 (14:12→20:16)
[2021-05-21] MEDS: 0.45% Normal Saline 1,000 ML 60 ML IV (15:15)
[2021-05-21 16:14] LABS: Pathologist Review Reviewed
[2021-05-21 18:21] LABS: Bedside Glucose 94 mg/dL (70-110)
[2021-05-21] MEDS: Acetaminophen 650 MG/20 ML UDC GT (20:17)
--- NOTE | 2021-05-21 20:30 | NURSING ---
pt straight cath for 300. pt cleaned up and repostion. Father informed me that they do not wake her to turn her or change her. dad expressed pt tired. all meds given early.
[2021-05-21 20:32] LABS: Vancomycin, Trough Level 11.9 ug/mL (5.0-15.0)
[2021-05-21] MEDS: 0.9% Saline Lock 10 ML Syringe IV (20:58)
--- NOTE | 2021-05-21 21:17 | PCM.RX.CS ---
Consult Pharmacy has been consulted to manage selected antiobiotic: Vancomycin Type of Consult: Follow-up Labs: Sodium 141 mmol/L (136-145) 05/21/21 07:00 Potassium 4.1 mmol/L (3.5-5.1) 05/21/21 07:00 Chloride 109 mmol/L (98-107) H 05/21/21 07:00 Carbon Dioxide 28.0 mmol/L (21.0-32.0) 05/21/21 07:00 Anion Gap 4 (5-15) L 05/21/21 07:00 BUN 7 mg/dL (7-18) 05/21/21 07:00 Creatinine 0.29 mg/dL (0.55-1.02) L 05/21/21 07:00 Est GFR (MDRD) Af Amer 343 mL/min (>60) 05/21/21 07:00 Est GFR (MDRD) Non-Af 283 mL/min (>60) 05/21/21 07:00 BUN/Creatinine Ratio 23.9 RATIO (10-20) H 05/21/21 07:00 Glucose 115 mg/dL (74-106) H 05/21/21 07:00 Vancomycin Trough 11.9 ug/mL (5.0-15.0) 05/21/21 20:04 Microbiology: Microbiology 05/20/21 16:45 Sputum, Induced/Lukens Gram Stain - Final 05/20/21 16:45 Sputum, Induced/Lukens Respiratory Culture - Preliminary Gram negative angelo 05/20/21 14:05 Urine Catheter - Catheter Urine Culture - Preliminary Presumptive E. coli 05/20/21 14:37 Mucosa - Nose Respiratory Panel (PCR) - Final 05/20/21 14:05 Urine Catheter - Catheter Legionella Antigen - Final 05/20/21 14:05 Urine Catheter - Catheter Streptococcus pneumoniae Antigen (M - Final 05/20/21 13:45 Nasal Secretion SARS-CoV-2 Antigen (Rapid) - Final Goal Trough: 15-20 mcg/mL Pharmacy Plan for Drug Dosing: Pharmacy Service will continue to monitor and adjust dosing as required. TROUGH 11.9 INCREASE TO 1000MG Q8H FOLLOW UP TROUGH BEFORE 4TH DOSE Follow-Up Labs: Trough Vancomycin Labs to be done on [date and time ordered]: 05/23 @ 2211
[2021-05-21 21:26] LABS: Bedside Glucose 143 mg/dL (70-110)
--- NOTE | 2021-05-21 23:16 | PCM.CONS.GEN ---
Assessment & Plan Assessment/Plan (1) Staghorn renal calculus: PLAN: discussed with dad, will plan to proceed with ureteroscopy with laser lithotripsy and stent insertion when ok from ID standpoint. this will likely require at least 3 procedures to clear out the right kidney. we discussed the possibility of percutaneous nephrolithotomy, but I do not do this procedure, and they cannot find anyone else to help. stone passed today sent for analysis (2) Recurrent UTI: PLAN: need to improve her bladder emptying. the retention is contributing to her recurrent infections. will start with TID cathing with recorded volumes out. continue antibiotics per infectious disease continue supportive care (3) Cerebral palsy: (4) Complicated UTI (urinary tract infection): HPI Consult Data Date of Consult: 05/21/21 HPI Narrative HPI Narrative: MANDY RIVERA, is a 31 F who presents with urinary tract infection with fever at home. Dad is at bedside. She is vent dependant patient with CP. She is left to be incontinent on her own most of the time. Dad reports she has had urinary catheterizations from time to time and they usually get over 300cc out. She frequently passes stones in her diapers. She has known stones, but due to her medical status and transportation, has had difficulty finding someone to manage her. [facility] Medical History Allergic rhinitis due to other allergen Amenorrhea Bronchiectasis without acute exacerbation Bronchitis C. difficile diarrhea Cellulitis of groin Cerebral palsy Chronic respiratory failure Diabetes Fungal infection of the groin Hyperglycemia Irregular menstrual cycle Kidney stones Lactic acid acidosis Malignant hyperthermia Mild mental retardation MRSA (methicillin resistant Staphylococcus aureus) Neuromuscular scoliosis Paraplegia Pneumonia Respiratory acidosis Seizure Severe sepsis Spastic hemiplegic cerebral palsy Streptococcus pneumoniae Thrush Visual disturbance Vitamin D deficiency Home Medications baclofen 30 mg GT TID 09/02/13 [History Last Taken 05/20/21] oxcarbazepine 300 mg/5 mL (60 mg/mL) oral suspension 8 ml GT BID ml 08/28/17 [History Last Taken 05/20/21] insulin aspart U-100 100 unit/mL (3 mL) subcutaneous pen 8 units SQ 4X/DAY 09/20/20 [History Last Taken 05/20/21] ferrous sulfate 60 mg FEEDING TUBE DAILY 02/28/21 [History Last Taken 05/20/21] fluticasone propionate 2 puff INHALATION BID 02/28/21 [History Last Taken 05/20/21] levalbuterol HCl 1.25 mg/3 mL solution for nebulization 1.25 mg INHALATION BID #90 ml 03/05/21 [Rx Last Taken 05/20/21] cholecalciferol (vitamin D3) 10 mcg FEEDING TUBE DAILY 05/20/21 [History Last Taken Unknown] diazepam 5 mg FEEDING TUBE DAILY@1400 05/20/21 [History Last Taken 05/20/21] diazepam 7 mg FEEDING TUBE BID 05/20/21 [History Last Taken 05/20/21] methenamine hippurate [Hiprex] 1 g FEEDING TUBE BID 05/20/21 [History Last Taken 05/20/21] Allergy/AdvReac Type Severity Reaction Status Date / Time linezolid Allergy Severe Other - Verified 05/20/21 11:59 seizure & coma vancomycin Allergy Severe Other - Verified 05/20/21 11:59 kidney failure tobramycin Allergy Intermediate Other - Verified 05/20/21 11:59 turned beet red nafcillin Allergy Mild Rash Verified 05/20/21 11:59 benzoin Allergy Unknown Rash Verified 05/20/21 11:59 milk Allergy Unknown Other Verified 05/20/21 11:59 soy Allergy Unknown Other Verified 05/20/21 11:59 polyethylene glycol 3350 AdvReac Unknown Hives Verified 05/20/21 11:59 [From Miralax] Family History Grandmother Cancer maternal Other Adopted Surgical History derotatox ostomies eyes straightened Gastrostomy tube in place H/O spinal fusion Presence of intrathecal baclofen pump rods to back Status post Jorje fundoplication surgery on gland under tongue tendonatomies Tracheostomy status Social History household members: other details: Mother and is vent dependent housing: house Smoking Status: Never smoker second hand exposure: No alcohol intake: never substance use type: does not use ROS ROS Narrative she is only able to respond to yes or no questions. she denies pain at the present time. Physical Exam Narrative non ambulatory, vent dependant. alert. no saba catheter at present. scoliosis. Lab / Micro Data Result Diagrams: 05/21/21 07:00 05/21/21 07:00 Labs: Laboratory Results - last 24 hr 05/20/21 13:35: Diff Path Review Reviewed 05/21/21 06:23: POC Glucose 109 05/21/21 07:00: WBC 9.9, RBC 3.18 L, Hgb 10.0 L, Hct 30.9 L, MCV 97.2 D, MCH 31.4, MCHC 32.4 D, RDW Std Deviation 45.7 H, RDW Coeff of Anne 12.7, Plt Count 243, MPV 9.9, Immature Gran % (Auto) 0.500, Neut % (Auto) 70.1 H, Lymph % (Auto) 14.1 L, [place] % (Auto) 13.0 H, Eos % (Auto) 2.0, Baso % (Auto) 0.3, Absolute Neuts (auto) 6.9, Absolute Lymphs (auto) 1.39, Nucleated RBC % 0 05/21/21 07:00: Sodium 141, Potassium 4.1, Chloride 109 H, Carbon Dioxide 28.0, Anion Gap 4 L, BUN 7, Creatinine 0.29 L, Estim Creat Clear Calc 218.76, Est GFR (MDRD) Af Amer 343, Est GFR (MDRD) Non-Af 283, BUN/Creatinine Ratio 23.9 H, Glucose 115 H, Calcium 8.0 L, Total Bilirubin 0.30, AST 12 L, ALT 32, Alkaline Phosphatase 72, Total Protein 6.8, Albumin 2.7 L, Globulin 4.1, Albumin/Globulin Ratio 0.7 L 05/21/21 09:55: POC Glucose 135 H 05/21/21 12:53: POC Glucose 99 05/21/21 18:13: POC Glucose 94 05/21/21 20:04: Vancomycin Trough 11.9 05/21/21 20:56: POC Glucose 143 H Micro: Microbiology 05/20/21 16:45 Sputum, Induced/Lukens Gram Stain - Final 05/20/21 16:45 Sputum, Induced/Lukens Respiratory Culture - Preliminary Gram negative angelo 05/20/21 14:05 Urine Catheter - Catheter Urine Culture - Preliminary Presumptive E. coli
[2021-05-22] VITALS (14 sets, daily range): BP systolic 83–120; BP diastolic 53–87; PULSE 55–112; RESP 14–20; TEMP 36.4–36.8; O2SAT 97–100
[2021-05-22] MEDS: Vancomycin IV 1,000 MG/200 ML BAG 200 MG IV (04:09)
[2021-05-22] MEDS: Baclofen 10 MG Tablet 30 MG GT ×3 (05:16→21:28)
[2021-05-22] MEDS: diazePAM 2 MG Tablet GT ×2 (05:21→21:33)
[2021-05-22] MEDS: diazePAM 5 MG Tablet GT ×3 (05:21→21:33)
--- NOTE | 2021-05-22 05:35 | NURSING ---
pt straight cath for 300cc. Pt incont of urine and stool. Pt cleaned up and repostion
[2021-05-22 05:50] LABS: Bedside Glucose 139 mg/dL (70-110)
[2021-05-22] MEDS: Budesonide Respules 0.5 MG/2 ML AMPUL.NEB. INHALATION ×2 (06:39→18:55)
[2021-05-22] MEDS: Albuterol 2.5 MG/3 ML VIAL.NEB. INHALATION ×4 (06:39→18:55)
[2021-05-22] MEDS: Ferrous Sulfate 300 MG/5 ML UDC 60 MG GT (08:32)
[2021-05-22] MEDS: Insulin Lispro 100 UNIT/ML INSULN.PEN 8 UNIT SC ×2 (08:36→21:28)
[2021-05-22] MEDS: Methenamine Hippurate 1 GM Tablet PO ×2 (08:36→21:27)
[2021-05-22] MEDS: Enoxaparin 30 MG/0.3 ML Syringe SC (08:38)
[2021-05-22] MEDS: Famotidine 20 MG Tablet GT ×2 (08:40→21:31)
[2021-05-22] MEDS: 0.45% Normal Saline 1,000 ML 60 ML IV (10:07)
--- NOTE | 2021-05-22 10:13 | PCM.PN.ID ---
Physical Exam Narrative In icu, passed another stone this AM with large UOP per her mother. No fever. Const no apparent distress Resp normal air movement and clear to auscultation bilaterally Cardio regular rate and regular rhythm GI normal to inspection, nondistended, normoactive bowel sounds Skin no rashes or lesions noted ID ID: Route of nutrition/ use of supplements: [] Nutritional Intake: [] IV Site: [] Owens Catheter: [] Assessment & Plan Assessment/Plan (1) Recurrent UTI: (2) Staghorn renal calculus: (3) Sepsis: QUALIFIERS: Sepsis type: sepsis due to unspecified organism Sepsis acute organ dysfunction status: with acute organ dysfunction Severe sepsis acute organ dysfunction type: acute respiratory failure Acute respiratory failure type: with hypoxia Severe sepsis shock status: without septic shock Qualified Code(s): A41.9 - Sepsis, unspecified organism; R65.20 - Severe sepsis without septic shock; J96.01 - Acute respiratory failure with hypoxia PLAN: Due to esbl ecoli uti, has recurrent esbl ecoli infection, last admit was 02/2021, discharged home on course of iv ertapenem and started on methenamine and vit C for prevention. Now here with infection again. Sputum also with serratia. CT done, has been passing stones at home per her mother. On vanc/meropenem, will stop vanc. Seen by Dr. Anaya; pt is clinically stable now with good antibiotic coverage, from ID perspective she is ok for urologic procedure to help with source control. Reviewed risks and benefits and encouraged her mother to get covid vaccination for herself and the patient. Will follow (4) Chronic respiratory failure: QUALIFIERS: Respiratory failure complication: hypoxia Qualified Code(s): J96.11 - Chronic respiratory failure with hypoxia
[2021-05-22 13:05] LABS: Bedside Glucose 80 mg/dL (70-110)
--- NOTE | 2021-05-22 13:39 | PN.HOSP_ITS ---
Subjective Subjective Patient did not spike fever. Heart rate variable in the 80s to 110s. Talked to the father of the patient. Patient passed a small medeiros-colored stone which was sent for stone analysis. ID has cleared for the urology procedure. Objective Data Objective Data Vital Signs: Vital Signs Temp Pulse Resp BP Pulse Ox 97.5 F L 112 H 16 109/82 H 100 05/22/21 08:26 05/22/21 13:32 05/22/21 13:32 05/22/21 08:26 05/22/21 13:32 Oxygen Flow Rate (L/min) 3 Oxygen Delivery Method Mechanical Ventilator Weight: 108 lb 1.6 oz Body Mass Index (BMI) 24.4 Intake & Output: Intake and Output for Last 24 Hours 05/20/21 05/21/21 05/22/21 23:59 23:59 23:59 Intake Total 1274.98 / 1274.98 2277 / 2277 1560 / 1560 Output Total 0 / 0 300 / 300 300 / 300 Balance 1274.98 / 1274.98 1976 1260 / 1260 Lab / Micro Data Result Diagrams: 05/21/21 07:00 05/21/21 07:00 Labs: Laboratory Results - last 24 hr 05/20/21 13:35: Diff Path Review Reviewed 05/21/21 18:13: POC Glucose 94 05/21/21 20:04: Vancomycin Trough 11.9 05/21/21 20:56: POC Glucose 143 H 05/22/21 05:28: POC Glucose 139 H 05/22/21 12:45: POC Glucose 80 Micro: Microbiology 05/20/21 16:45 Sputum, Induced/Lukens Gram Stain - Final 05/20/21 16:45 Sputum, Induced/Lukens Respiratory Culture - Final Serratia marcescens 05/20/21 14:05 Urine Catheter - Catheter Urine Culture - Preliminary Escherichia coli 05/20/21 14:37 Mucosa - Nose Respiratory Panel (PCR) - Final 05/20/21 14:05 Urine Catheter - Catheter Legionella Antigen - Final 05/20/21 14:05 Urine Catheter - Catheter Streptococcus pneumoniae Antigen (M - Final 05/20/21 13:45 Nasal Secretion SARS-CoV-2 Antigen (Rapid) - Final Physical Exam Narrative General: Short stature, cerebral palsy, nonverbal and noncommunicative HEENT: Atraumatic, PERRLA, EOMI. Blink eyes intermittently Oral: Mouth open. Neck: Tracheostomy. Neck rotated on left lateral position. Lungs: Air entry diminished in bilateral lung bases. No crepitation/rhonchi Cardiovascular: Regular rate, Regular Rhythm, Normal S1, Normal S2, No murmurs Abdomen: Bowel Sounds Present, Soft, Non Tender, Non-Distended : No renal angle tenderness. No suprapubic tenderness. Extremities: No edema, Capillary Refill Less than 3 Seconds Skin: No rashes, No breakdown Musculoskeletal: Surgical scar on the left hip region in the past. Contracture of upper and lower extremities and neck. Neurological: Cranial nerves II-XII grossly intact, cerebral palsy with limited function. Psych/Mental Status: Flat affect. Assessment & Plan Assessment/Plan (1) Urinary tract infection due to extended-spectrum beta lactamase (ESBL) producing Escherichia coli: PLAN: The patient is a 31 y/o F with multiple comorbidities including suprapubic catheter is admitted for high-grade fever, features of sepsis. The patient is on vent support through tracheostomy, 05/04 baseline. 1. Sepsis secondary to Acute on Chronic Hypoxic Respiratory Failure secondary to possible LLL Pneumonia, Complicated UTI with indwelling suprapubic catheter with history of staghorn calculi: Patient is admitted in ICU. Patient on vent support through tracheostomy as per home regimen. Seen by street light servicer. On broad-spectrum antibiotic vancomycin and meropenem. Tracheostomy suction and tolerating. ID consult reviewed and I agree with the plan of antibiotic and urology consult recommendation. Covid PCR negative. Chest x-ray left basilar atelectasis. CT abdomen multiple nonobstructive calculi bladder. Preliminary urine culture shows presumptive E. coli more than 1000 colonies. Tracheal preliminary Gram stain shows gram-negative angelo 3+. PCR negative. 05/22: No fever last 24 hours. ID cleared for the urology procedure for source control. Discussed with urologist and gave clinical update about ID recommendation and clearance for urology procedure. She will schedule for her surgery. 2. Hypokalemia: Potassium is corrected. Chronic normocytic anemia: Hemoglobin is stable. Baseline 10-11, stable, trend. 3. 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 4. Chronic Hyponatremia with suspected mild acute component, hypovolemic: Admission sodium mildly decreased 131, chloride 95, repeat sodium and potassium normal. Chloride 109. 5. Diabetes mellitus type II: continue home insulin regimen, continue to feed with Accu-Cheks insulin coverage with Humalog sliding scale. 6. Hx Microalbuminuria: Patient was on on lisinopril regimen, not tolerated well, continue aggressive DM control. 7. DVT prophylaxis: SCDs, Lovenox. 8. CODE status: Patient HCPOA is her mother who is present. DNR-CCA, allowance of continued ventilation via tracheostomy given current status. Charges/Coding Visit Charges Inpatient E&M: 09077 Subs Hosp L3
--- NOTE | 2021-05-22 13:42 | PCM.PN.INT ---
Assessment & Plan Assessment/Plan (1) Chronic respiratory failure: QUALIFIERS: Respiratory failure complication: hypoxia Qualified Code(s): J96.11 - Chronic respiratory failure with hypoxia (2) Sepsis: QUALIFIERS: Sepsis type: sepsis due to unspecified organism Sepsis acute organ dysfunction status: with acute organ dysfunction Severe sepsis acute organ dysfunction type: acute respiratory failure Acute respiratory failure type: with hypoxia Severe sepsis shock status: without septic shock Qualified Code(s): A41.9 - Sepsis, unspecified organism; R65.20 - Severe sepsis without septic shock; J96.01 - Acute respiratory failure with hypoxia PLAN: RECOMMENDATIONS: 1. Continue antimicrobials per ID recommendations. 2. Additional urologic work-up per Dr. Anaya. 3. Continue vent support per home regimen. 4. Continue tube feeds per home regimen. 5. Given the patient's lack of ICU needs, will sign off. Please call with additional questions. IMPRESSIONS: 1. Complicated UTI I do suspect that the patient's presenting symptoms were likely secondary to recurrent urinary tract source of infection and possible pneumonia. The patient does have a history of ESBL E. coli, which required protracted treatment under the discretion of infectious diseases. Plan to continue antimicrobials per ID recommendations. Urologic work-up/intervention is pending. The patient remains hemodynamically stable. 2. Possible gram-negative pneumonia The patient's chest imaging revealed a vague possible infiltrate and sputum Gram stain is demonstrating 3+ gram-negative angelo. Continue current antimicrobial coverage. Despite this, the patient is at her baseline from a respiratory perspective. Continue baseline vent support. 3. Chronic respiratory failure Continue baseline ventilatory support per home regimen. 4. History of spastic quadriplegia/cerebral palsy Complicates care, management, recovery and prognosis. Continue home medications as indicated. This note was generated with [employer] dictation software. It may contain incorrect words, spelling, and punctuation that were not noted in checking the note before signing. Subjective Subjective The patient was seen and examined at the bedside this morning. Events from the last 24 hours have been reviewed. The patient is currently afebrile, hemodynamically stable and maintaining appropriate oxygen saturations on her home vent settings. She is currently documented to be overall net +4.5 L for the hospital admission. She remains on appropriate antimicrobials. Objective Data Objective Data The patient's most recent lab work, culture data and imaging studies have all been personally reviewed. Preliminary sputum culture was positive for Serratia marcescens. Preliminary urine culture was positive for E. coli. Vital Signs: Vital Signs Temp Pulse Resp BP Pulse Ox 97.5 F L 112 H 16 109/82 H 100 05/22/21 08:26 05/22/21 13:32 05/22/21 13:32 05/22/21 08:26 05/22/21 13:32 Oxygen Flow Rate (L/min) 3 Oxygen Delivery Method Mechanical Ventilator Weight: 49.033 kg Body Mass Index (BMI) 24.4 Intake & Output: Intake and Output for Last 24 Hours 05/20/21 05/21/21 05/22/21 23:59 23:59 23:59 Intake Total 1274.98 / 1274.98 2277 / 2277 1560 / 1560 Output Total 0 / 0 300 / 300 300 / 300 Balance 1274.98 / 1274.98 1976 1260 / 1260 Lab / Micro Data Attestation: I reviewed the patient's lab results. Result Diagrams: 05/21/21 07:00 05/21/21 07:00 Labs: Laboratory Results - last 24 hr 05/20/21 13:35: Diff Path Review Reviewed 05/21/21 18:13: POC Glucose 94 05/21/21 20:04: Vancomycin Trough 11.9 05/21/21 20:56: POC Glucose 143 H 05/22/21 05:28: POC Glucose 139 H 05/22/21 12:45: POC Glucose 80 Micro: Microbiology 05/20/21 16:45 Sputum, Induced/Lukens Gram Stain - Final 05/20/21 16:45 Sputum, Induced/Lukens Respiratory Culture - Final Serratia marcescens 05/20/21 14:05 Urine Catheter - Catheter Urine Culture - Preliminary Escherichia coli 05/20/21 14:37 Mucosa - Nose Respiratory Panel (PCR) - Final 05/20/21 14:05 Urine Catheter - Catheter Legionella Antigen - Final 05/20/21 14:05 Urine Catheter - Catheter Streptococcus pneumoniae Antigen (M - Final 05/20/21 13:45 Nasal Secretion SARS-CoV-2 Antigen (Rapid) - Final Physical Exam Const alert and no apparent distress Constitutional Narrative: Baseline nonverbal status. HEENT normocephalic and head/scalp atraumatic HEENT Narrative: Macroglossia present Eyes PERRL and conjunctivae normal Neck supple Neck Narrative: Tracheostomy site intact. General: trachea midline Resp Auscultation: diminished lung sounds; Negative for rales, rhonchi or wheezes Cardio regular rate and regular rhythm GI normal to inspection, nondistended, normoactive bowel sounds Extremity Extremity Narrative: Contracted extremities with spastic quadriplegia General Extremity: Negative for clubbing or edema Skin no rashes or lesions noted Neuro Neuro Narrative: Baseline neurological status Psych Mood & Affect: flat affect Charges/Coding Visit Charges Inpatient E&M: 82623 Subs Hosp L2
[2021-05-22 17:46] LABS: Bedside Glucose 82 mg/dL (70-110)
[2021-05-22 20:41] LABS: Bedside Glucose 146 mg/dL (70-110)
[2021-05-23] VITALS (22 sets, daily range): BP systolic 90–152; BP diastolic 52–90; PULSE 50–143; RESP 12–23; TEMP 35.8–37.9; O2SAT 98–100; BMI 23.0
[2021-05-23 00:51] LABS: Bedside Glucose 74 mg/dL (70-110)
[2021-05-23 04:56] LABS: Bedside Glucose 97 mg/dL (70-110)
[2021-05-23] MEDS: 0.45% Normal Saline 1,000 ML 60 ML IV ×2 (05:16→17:45)
[2021-05-23] MEDS: Baclofen 10 MG Tablet 30 MG GT ×3 (06:14→21:54)
[2021-05-23] MEDS: diazePAM 2 MG Tablet GT ×2 (06:14→21:59)
[2021-05-23] MEDS: diazePAM 5 MG Tablet GT ×3 (06:15→21:59)
[2021-05-23] MEDS: Albuterol 2.5 MG/3 ML VIAL.NEB. INHALATION ×3 (06:49→19:32)
[2021-05-23] MEDS: Budesonide Respules 0.5 MG/2 ML AMPUL.NEB. INHALATION ×2 (06:50→19:32)
[2021-05-23] MEDS: Famotidine 20 MG Tablet GT ×2 (08:34→21:53)
[2021-05-23] MEDS: Methenamine Hippurate 1 GM Tablet PO ×2 (08:35→21:54)
--- NOTE | 2021-05-23 09:15 | CASEMGMT ---
SW met w/pt's father, offered support. SW remains available for support to family as needed. LYDIA Garcia
[2021-05-23 10:55] LABS: Bedside Glucose 102 mg/dL (70-110)
--- NOTE | 2021-05-23 12:57 | PCM.PN.HOSP ---
Subjective Subjective Patient did not had fever or chills for more than 48 hours. Scheduled for cystoscopy/ureteral lithotripsy in the afternoon today. Discussed with the patient's father near the bedside. Objective Data Objective Data Vital Signs: Vital Signs Temp Pulse Resp BP Pulse Ox 98.4 F 74 16 123/90 H 100 05/23/21 12:02 05/23/21 12:54 05/23/21 12:54 05/23/21 12:02 05/23/21 12:02 Oxygen Flow Rate (L/min) 3 Oxygen Delivery Method Trach Collar Weight: 99 lb 6.397 oz Body Mass Index (BMI) 23.0 Intake & Output: Intake and Output for Last 24 Hours 05/21/21 05/22/21 05/23/21 23:59 23:59 23:59 Intake Total 2277 / 2277 2560 / 2660 1590 / 1590 Output Total 300 / 300 450 / 450 350 / 350 Balance 1976 / 1976 2110 / 2210 1240 / 1240 Lab / Micro Data Result Diagrams: 05/21/21 07:00 05/21/21 07:00 Labs: Laboratory Results - last 24 hr 05/22/21 12:45: POC Glucose 80 05/22/21 17:26: POC Glucose 82 05/22/21 20:36: POC Glucose 146 H 05/23/21 00:47: POC Glucose 74 05/23/21 04:49: POC Glucose 97 05/23/21 10:50: POC Glucose 102 Micro: Microbiology 05/20/21 14:05 Urine Catheter - Catheter Urine Culture - Final Escherichia coli 05/20/21 13:35 Blood Culture (Wb) - Left Hand Blood Culture - Preliminary No growth in 48 hours. 05/20/21 13:00 Blood Culture (Wb) - Right Hand Blood Culture - Preliminary No growth in 48 hours. 05/20/21 16:45 Sputum, Induced/Lukens Gram Stain - Final 05/20/21 16:45 Sputum, Induced/Lukens Respiratory Culture - Final Serratia marcescens 05/20/21 14:37 Mucosa - Nose Respiratory Panel (PCR) - Final 05/20/21 14:05 Urine Catheter - Catheter Legionella Antigen - Final 05/20/21 14:05 Urine Catheter - Catheter Streptococcus pneumoniae Antigen (M - Final 05/20/21 13:45 Nasal Secretion SARS-CoV-2 Antigen (Rapid) - Final Physical Exam Narrative General: Short stature, cerebral palsy, nonverbal and noncommunicative HEENT: Atraumatic, PERRLA, EOMI. Blink eyes intermittently Oral: Mouth open. Sometimes drooling. Neck: Tracheostomy. Neck rotated on left lateral position. Lungs: Air entry diminished in bilateral lung bases. No crepitation/rhonchi Cardiovascular: Regular rate, Regular Rhythm, Normal S1, Normal S2, No murmurs Abdomen: Bowel Sounds Present, Soft, Non Tender, Non-Distended : No renal angle tenderness. No suprapubic tenderness. Clear urine. Extremities: No edema, Capillary Refill Less than 3 Seconds Skin: No rashes, No breakdown Musculoskeletal: Surgical scar on the left hip region in the past. Contracture of upper and lower extremities and neck. Neurological: Cranial nerves II-XII grossly intact, cerebral palsy with limited function. Psych/Mental Status: Flat affect. Assessment & Plan Assessment/Plan (1) Urinary tract infection due to extended-spectrum beta lactamase (ESBL) producing Escherichia coli: PLAN: The patient is a 31 y/o F with multiple comorbidities including suprapubic catheter is admitted for high-grade fever, features of sepsis. The patient is on vent support through tracheostomy, 24 baseline. 1. Sepsis secondary to Acute on Chronic Hypoxic Respiratory Failure secondary to possible LLL Pneumonia, Complicated UTI with indwelling suprapubic catheter with history of staghorn calculi: Patient is admitted in ICU. Patient on vent support through tracheostomy as per home regimen. Seen by spa manager/esthetician. On broad-spectrum antibiotic vancomycin and meropenem. Tracheostomy suction and tolerating. ID consult reviewed and I agree with the plan of antibiotic and urology consult recommendation. Covid PCR negative. Chest x-ray left basilar atelectasis. CT abdomen multiple nonobstructive calculi bladder. Preliminary urine culture shows presumptive E. coli more than 1000 colonies. Tracheal preliminary Gram stain shows gram-negative angelo 3+. PCR negative. 05/22: No fever last 24 hours. ID cleared for the urology procedure for source control. Discussed with urologist and gave clinical update about ID recommendation and clearance for urology procedure. She will schedule for her surgery. 05/23: Urine culture shows ESBL E. coli more than 100,000 colonies sensitive to meropenem. Sputum culture growing 3+ Serratia marcescens. Blood culture negative for more than 48 hours. Respiratory panel negative. Patient is scheduled for cystoscopy/ureteral lithotripsy in afternoon today 2. Hypokalemia: Potassium is corrected. Chronic normocytic anemia: Hemoglobin is stable. Baseline 10-11, stable, trend. 3. 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 4. Chronic Hyponatremia with suspected mild acute component, hypovolemic: Admission sodium mildly decreased 131, chloride 95, repeat sodium and potassium normal. Chloride 109. 5. Diabetes mellitus type II: continue home insulin regimen, continue to feed with Accu-Cheks insulin coverage with Humalog sliding scale. 6. Hx Microalbuminuria: Patient was on on lisinopril regimen, not tolerated well, continue aggressive DM control. 7. DVT prophylaxis: SCDs, Lovenox. 8. CODE status: Patient HCPOA is her mother who is present. DNR-CCA, allowance of continued ventilation via tracheostomy given current status. Charges/Coding Visit Charges Inpatient E&M: 56409 Subs Hosp L3
--- NOTE | 2021-05-23 13:47 | PCM.PN.ID ---
Physical Exam Narrative No fever, OR planned for today Const no apparent distress Resp normal air movement and clear to auscultation bilaterally Cardio regular rate and regular rhythm GI normal to inspection, nondistended, normoactive bowel sounds Skin no rashes or lesions noted ID ID: Route of nutrition/ use of supplements: [] Nutritional Intake: [] IV Site: [] Owens Catheter: [] Assessment & Plan Assessment/Plan (1) Recurrent UTI: (2) Staghorn renal calculus: (3) Sepsis: QUALIFIERS: Sepsis type: sepsis due to unspecified organism Sepsis acute organ dysfunction status: with acute organ dysfunction Severe sepsis acute organ dysfunction type: acute respiratory failure Acute respiratory failure type: with hypoxia Severe sepsis shock status: without septic shock Qualified Code(s): A41.9 - Sepsis, unspecified organism; R65.20 - Severe sepsis without septic shock; J96.01 - Acute respiratory failure with hypoxia PLAN: Due to esbl ecoli uti, has recurrent esbl ecoli infection, last admit was 02/2021, discharged home on course of iv ertapenem and started on methenamine and vit C for prevention. Now here with infection again. Sputum also with serratia. CT done, has been passing stones at home per her mother. On meropenem. Seen by Dr. Anaya; OR today. Reviewed risks and benefits and encouraged her mother to get covid vaccination for herself and the patient. Will follow (4) Chronic respiratory failure: QUALIFIERS: Respiratory failure complication: hypoxia Qualified Code(s): J96.11 - Chronic respiratory failure with hypoxia
[2021-05-23 16:15] LABS: Bedside Glucose 101 mg/dL (70-110)
--- NOTE | 2021-05-23 16:18 | OP.PCM_ITS ---
Problems Associated Problem List Diagnoses (1) Staghorn renal calculus: (2) Cerebral palsy: (3) Complicated UTI (urinary tract infection): Report of Operation Date of Procedure: 05/23/21 Pre-Operative Diagnosis: Right staghorn renal calculus, Complicated urinary tract infection Post-Operative Diagnosis: Same Surgery/Procedure Performed:: Cystoscopy, right ureteroscopy, laser lithotripsy, right ureteral stent insertion Surgeon: Samaria Anaya Type of Anesthesia: General Description of Procedure: The patient is a 31-year-old female with cerebral palsy, right staghorn renal calculus with recurrent urinary tract infections that presents for definitive surgical intervention for her stones. Informed consent was obtained from her mother. The patient was taken to the operating room and placed on the operating room table. Care was taken during this time to leave her on her portable vent without manipulation of the tubes and wires. Once she was appropriately positioned, secured and padded on the operating room table, anesthesia was administered. At this time the patient was prepped and draped in usual sterile fashion. The cystoscope was inserted through the urethra under direct visualization into the urinary bladder. The insertion of the right ureter was much more vertical than is customary. There were no masses identified but the bladder mucosa was somewhat injected. The right ureteral orifice was intubated with a 0.035 Glidewire without difficulty. It was visualized in the renal pelvis using fluoroscopy. A second wire was then passed. At this time the ureteroscope easily passed over the second wire and was advanced all the way to the renal pelvis. Immediately and passing into the upper ureter several calculi were identified. The 270 ?m laser fiber was then used to fragment the visible stones into as much dust and small pieces as possible. Over time, the ureteroscope was in turn advanced into each calyx in the upper, middle and lower poles. In order to obtain access to the lower pole, contrast was injected in retrograde fashion. No extravasation of contrast was seen. I was able to enter into the lower pole calyx at this time. Each calyx had multiple large and even smaller stone fragments. These fragments were lasered and flushed until the pieces remaining were small, and my hands begin to cramp. At this time the ureteroscope was removed under direct visualization and no injuries were identified. The wire was backloaded into the cystoscope. Using fluoroscopic visualization, a 6 [place] [employer] 20 cm JJ stent was passed over the wire with good curling in the renal pelvis as well as the urinary bladder. The patient's bladder was then emptied and the case was terminated. The patient was awakened and taken to the recovery room in good condition. Grafts/Implants Used: 6 x 20 cm JJ stent Complications None Admit VTE Documentation VTE Pharm Prophylaxis ordered?: Yes
[2021-05-23] MEDS: Ferrous Sulfate 300 MG/5 ML UDC 60 MG GT (17:58)
[2021-05-23] MEDS: Insulin Lispro 100 UNIT/ML INSULN.PEN 8 UNIT SC ×2 (18:06→22:05)
[2021-05-23 18:15] LABS: Bedside Glucose 96 mg/dL (70-110)
[2021-05-23] MEDS: Acetaminophen 650 MG/20 ML UDC GT (18:43)
[2021-05-23] MEDS: Ibuprofen 100 MG/5 ML UDC PO (20:32)
[2021-05-23 22:10] LABS: Bedside Glucose 172 mg/dL (70-110)
[2021-05-24] VITALS (13 sets, daily range): BP systolic 98–133; BP diastolic 62–86; PULSE 55–126; RESP 16–24; TEMP 36.6–37.8; O2SAT 100
[2021-05-24 00:46] LABS: Bedside Glucose 111 mg/dL (70-110)
[2021-05-24] MEDS: diazePAM 5 MG Tablet GT ×3 (05:07→22:00)
[2021-05-24] MEDS: diazePAM 2 MG Tablet GT ×2 (05:07→22:00)
[2021-05-24] MEDS: Baclofen 10 MG Tablet 30 MG GT ×3 (05:08→21:59)
[2021-05-24 05:11] LABS: Bedside Glucose 117 mg/dL (70-110)
[2021-05-24] MEDS: Ibuprofen 100 MG/5 ML UDC PO ×2 (05:11→18:51)
[2021-05-24] MEDS: Budesonide Respules 0.5 MG/2 ML AMPUL.NEB. INHALATION ×2 (07:39→19:29)
[2021-05-24] MEDS: Albuterol 2.5 MG/3 ML VIAL.NEB. INHALATION ×3 (07:39→19:29)
[2021-05-24] MEDS: Insulin Lispro 100 UNIT/ML INSULN.PEN 8 UNIT SC ×4 (08:19→17:19)
[2021-05-24 08:36] LABS: Bedside Glucose 106 mg/dL (70-110)
[2021-05-24] MEDS: Ferrous Sulfate 300 MG/5 ML UDC 60 MG GT (09:28)
[2021-05-24] MEDS: Famotidine 20 MG Tablet GT ×2 (09:28→22:01)
[2021-05-24] MEDS: Methenamine Hippurate 1 GM Tablet PO ×2 (09:28→22:00)
[2021-05-24] MEDS: Enoxaparin 30 MG/0.3 ML Syringe SC (09:28)
[2021-05-24 09:52] LABS: Absolute Lymphocyte Count 0.36 X10^3/uL (0.83-4.51); Absolute Neutrophil Count 4.8 X10^3/uL (2.0-7.7); Basophil# 0.02 X10^3/uL; Basophil% 0.3 % (0-1); Eosinophil# 0.21 X10^3/uL; Eosinophils% 3.5 % (0-5); Hematocrit 26.9 % (37-47); Hemoglobin 8.8 g/dL (12.0-15.0); Lymphocyte # 0.36 X10^3/ul (0.83-4.51); Mean Corp Hgb Conc 32.7 g/dL (32-36); Mean Corpuscular Hgb 31.7 pg (27.0-32.0); Mean Corpuscular Volume 96.8 fL (81-99); Mean Platelet Vol. 9.5 fl (6.2-12.0); Monocyte# 0.55 X10^3/uL; Monocyte% 9.2 % (0-10); NRBC Flagged by Analyzer 0 % (0-5); Neutrophil # 4.81 X10^3/uL (2.7-7.7); POSITIVE DIFFERENTIAL YES; Platelet Count 162 K/mm3 (150-450); RBC Distribution Width CV 12.7 % (11.6-14.6); RBC Distribution Width SD 45.3 fl (35.1-43.9); Red Blood Count 2.78 M/mm3 (4.2-5.4)
[2021-05-24] MEDS: 0.45% Normal Saline 1,000 ML 60 ML IV (10:02)
[2021-05-24 10:05] LABS: ALB/GLOB Ratio 0.7 RATIO (0.9-2.4); AST(SGOT) 67 U/L (15-37); Alanine Aminotransfer ALT/SGPT 98 U/L (13-56); Albumin, Serum 2.7 g/dL (3.2-5.0); Alkaline Phosphatase 82 U/L (45-117); Anion Gap 5 (5-15); BUN 5 mg/dL (7-18); BUN/Creat Ratio 14.4 RATIO (10-20); Calcium,Total 8.4 mg/dL (8.5-10.1); Chloride 109 mmol/L (98-107); Creatinine, Serum 0.35 mg/dL (0.55-1.02); EST Glomerular Filtration Rate 232 mL/min (>60); Est Glom Filt Rate - Afr Amer 281 mL/min (>60); Estimated Creatinine Clearance 165.77 ml/min; Globulin 3.8 g/dL (2.2-4.2); Glucose 187 mg/dL (74-106); Potassium 3.1 mmol/L (3.5-5.1); Protein, Total 6.5 g/dL (6.4-8.2); Sodium Level 139 mmol/L (136-145)
[2021-05-24 10:07] LABS: Differential Indicated SCAN CRITERIA MET
--- NOTE | 2021-05-24 10:23 | PCM.PN.BLA ---
Progress Note Doing well. Going home later today. Plans in motion for repeat ureteroscopy in June. We will call mom to arrange as outpatient. Please call with questions.
--- NOTE | 2021-05-24 10:28 | DCINST_ITS ---
Discharge Instructions Diet Discharge Diet: - (TUBE FEED) Activity Discharge Activity: - (Pt has CP, Bed ridden) Dressing / Incision Call your doctor if you observe: Fever of 101 or Higher, Coldness, Increased Pain, Numbness or Tingling, Change in Color, Inability to urinate, Inability to have a bowel movement, Shortness of breath, Dizziness, Fainting spells, Swelling in the ankles, Chest pain, Prolonged hiccupping, Increased palpitations (irregular heartbeat), Calf discomfort and Uncontrolled pain Additional Dressing/Incision Instructions:: Patient will be discharged with midline Follow Up Care Test Results: Test results from this visit will be discussed in further detail at your follow-up appointment, if applicable. Discharge Plan Admission Admit Date/Time: 05/20/21 15:06 Primary Reason for Your Visit: Complicated UTI with staghorn calculus Attending Provider: River Mireles Primary Care Provider: Sandra Bermudez Consulting Providers: Rafa Bettencourt ; Landry Valenzuela ; Samaria Anaya Discharge Orders/Prescriptions Prescriptions: New ertapenem 1 gram recon soln 1 g IM Q24H Qty: 21 RF: 0 sennosides-docusate sodium [Stool Softener-Stimulant Laxat] 8.6-50 mg Tablet 2 tab G-tube BID PRN (Reason: Constipation) Qty: 0 RF: 0 Daily Fiber (psyllium-aspart) 3 gram Powder In Packet 1 packet G-tube DAILY PRN PRN (Reason: Constipation) Qty: 0 RF: 0 acidophilus-pectin, citrus 25 million cell -100 mg Tablet 1 tab G-tube BID Qty: 0 RF: 0 Continued oxcarbazepine [Trileptal] 300 mg/5 mL (60 mg/mL) suspension 8 ml GT BID RF: 0 insulin aspart U-100 100 unit/mL (3 mL) insulin pen 8 units SQ 4X/DAY RF: 0 baclofen 20 MG tablet 30 mg GT TID RF: 0 fluticasone propionate 44 mcg/actuation Hfa Aerosol Inhaler 2 puff INHALATION BID RF: 0 ferrous sulfate 15 mg iron (75 mg)/mL Syringe 60 mg feeding tube DAILY RF: 0 diazepam 5 mg/5 mL (1 mg/mL) Solution 7 mg feeding tube BID RF: 0 diazepam 5 mg/5 mL (1 mg/mL) Solution 5 mg feeding tube DAILY@1400 RF: 0 methenamine hippurate [Hiprex] 1 gram Tablet 1 g feeding tube BID RF: 0 cholecalciferol (vitamin D3) 10 mcg/mL (400 unit/mL) Drops 10 mcg feeding tube DAILY RF: 0 levalbuterol HCl 1.25 mg/3 mL solution for nebulization 1.25 mg INHALATION BID Qty: 90 RF: 6 Other Ambulatory Orders: CBC W/Diff, Automated (QWEEK) Timeframe: 20210606 Facility: [facility] - Location: Laboratory Ordered By: Dr. River Mireles CBC W/Diff, Automated (QWEEK) Timeframe: [id number] Facility: [facility] - Location: Laboratory Ordered By: Dr. River Mireles Comprehensive Metabolic Profil (QWEEK) Timeframe: [id number] Facility: [facility] - Location: Laboratory Ordered By: Dr. River Mireles Comprehensive Metabolic Profil (QWEEK) Timeframe: [id number] Facility: [facility] - Location: Laboratory Ordered By: Dr. River Mireles Comprehensive Metabolic Profil (QWEEK) Timeframe: [id number] Facility: [facility] - Location: Laboratory Ordered By: Dr. River Mireles Referrals / Follow Up: Sandra Bermudez DO [Primary Care Provider] - Disposition Disposition (needs filled in before D/C Order can be placed): Home, Self Care
--- NOTE | 2021-05-24 10:28 | PCM.DC.SUM ---
Providers Date of Admission: 05/20/21 Primary Care Physician: Dr. Sandra Bermudez DO Consultations 05/20/21 16:03 Consult: Infectious Disease Routine Consulting Provider: Rafa Bettencourt Reason for Consult: Sepsis, Suspected complicated UTI, Possible LLL PNA EMERGENT Consult: No MD Notified: Yes Date Notified: 05/20/21 Time Notified: 16:39 Method of Notification: Text Consult: Supervisor Cured Meats / Pulmonary Medicine Routine Consulting Provider: Landry Valenzuela Reason for Consult: Resp failure, Sepsis, PNA LLL, UTI EMERGENT Consult: No Notified: Yes Date Notified: 05/20/21 Time Notified: 15:01 Method of Notification: cortext 05/21/21 13:31 Consult: Urology Routine Consulting Provider: Samaria Anaya Reason for Consult: recurrent uti, stones EMERGENT Consult: No Notified: Yes Date Notified: 05/21/21 Time Notified: 14:44 Method of Notification: Page Reason For Visit: RESP FAILURE / SEPSIS / LLL PNA / UTI Diagnosis Discharge Diagnosis (1) Staghorn renal calculus: Status: Acute Code(s): N20.0 - Calculus of kidney (2) Cerebral palsy: Status: Acute Code(s): G80.9 - Cerebral palsy, unspecified (3) Complicated UTI (urinary tract infection): Status: Acute Code(s): N39.0 - Urinary tract infection, site not specified Medications at Discharge Home Medications baclofen 30 mg GT TID 09/02/13 oxcarbazepine 300 mg/5 mL (60 mg/mL) oral suspension 8 ml GT BID ml 08/28/17 insulin aspart U-100 100 unit/mL (3 mL) subcutaneous pen 8 units SQ 4X/DAY 09/20/20 ferrous sulfate 60 mg FEEDING TUBE DAILY 02/28/21 fluticasone propionate 2 puff INHALATION BID 02/28/21 levalbuterol HCl 1.25 mg/3 mL solution for nebulization 1.25 mg INHALATION BID #90 ml 03/05/21 cholecalciferol (vitamin D3) 10 mcg FEEDING TUBE DAILY 05/20/21 diazepam 5 mg FEEDING TUBE DAILY@1400 05/20/21 diazepam 7 mg FEEDING TUBE BID 05/20/21 methenamine hippurate [Hiprex] 1 g FEEDING TUBE BID 05/20/21 Weight / BMI Weight Weight: 99 lb 6.397 oz Body Mass Index (BMI) 23.0 ABG / Lab / Microbiology Data Result Diagrams: 05/24/21 09:42 05/24/21 09:42 Laboratory: Laboratory Results - last 24 hr 05/23/21 10:50: POC Glucose 102 05/23/21 16:09: POC Glucose 101 05/23/21 18:03: POC Glucose 96 05/23/21 21:50: POC Glucose 172 H 05/24/21 00:35: POC Glucose 111 H 05/24/21 05:06: POC Glucose 117 H 05/24/21 08:17: POC Glucose 106 05/24/21 09:42: WBC 6.0, RBC 2.78 L, Hgb 8.8 L, Hct 26.9 L, MCV 96.8, MCH 31.7, MCHC 32.7, RDW Std Deviation 45.3 H, RDW Coeff of Anne 12.7, Plt Count 162, MPV 9.5, Immature Gran % (Auto) 1.000 H, Neut % (Auto) 80.0 H, Lymph % (Auto) 6.0 L, Nolan % (Auto) 9.2, Eos % (Auto) 3.5, Baso % (Auto) 0.3, Absolute Neuts (auto) 4.8, Absolute Lymphs (auto) 0.36 L, Nucleated RBC % 0 05/24/21 09:42: Sodium 139, Potassium 3.1 L, Chloride 109 H, Carbon Dioxide 25.0, Anion Gap 5, BUN 5 L, Creatinine 0.35 L, Estim Creat Clear Calc 165.77, Est GFR (MDRD) Af Amer 281, Est GFR (MDRD) Non-Af 232, BUN/Creatinine Ratio 14.4, Glucose 187 H, Calcium 8.4 L, Magnesium 2.0, Total Bilirubin 0.40, AST 67 H, ALT 98 H, Alkaline Phosphatase 82, Total Protein 6.5, Albumin 2.7 L, Globulin 3.8, Albumin/Globulin Ratio 0.7 L Microbiology: Microbiology 05/20/21 14:05 Urine Catheter - Catheter Urine Culture - Final Escherichia coli 05/20/21 13:35 Blood Culture (Wb) - Left Hand Blood Culture - Preliminary No growth in 48 hours. 05/20/21 13:00 Blood Culture (Wb) - Right Hand Blood Culture - Preliminary No growth in 48 hours. 05/20/21 16:45 Sputum, Induced/Lukens Gram Stain - Final 05/20/21 16:45 Sputum, Induced/Lukens Respiratory Culture - Final Serratia marcescens 05/20/21 14:37 Mucosa - Nose Respiratory Panel (PCR) - Final 05/20/21 14:05 Urine Catheter - Catheter Legionella Antigen - Final 05/20/21 14:05 Urine Catheter - Catheter Streptococcus pneumoniae Antigen (M - Final 05/20/21 13:45 Nasal Secretion SARS-CoV-2 Antigen (Rapid) - Final Discharge Plan Admission Admit Date/Time: 05/20/21 15:06 Attending Provider: River Mireles Primary Care Provider: Sandra Bermudez Consulting Providers: Rafa Bettencourt ; Landry Valenzuela ; Samaria Anaya Discharge Orders/Prescriptions Prescriptions: No Action oxcarbazepine [Trileptal] 300 mg/5 mL (60 mg/mL) suspension 8 ml GT BID RF: 0 insulin aspart U-100 100 unit/mL (3 mL) insulin pen 8 units SQ 4X/DAY RF: 0 baclofen 20 MG tablet 30 mg GT TID RF: 0 fluticasone propionate 44 mcg/actuation Hfa Aerosol Inhaler 2 puff INHALATION BID RF: 0 ferrous sulfate 15 mg iron (75 mg)/mL Syringe 60 mg feeding tube DAILY RF: 0 diazepam 5 mg/5 mL (1 mg/mL) Solution 7 mg feeding tube BID RF: 0 diazepam 5 mg/5 mL (1 mg/mL) Solution 5 mg feeding tube DAILY@1400 RF: 0 methenamine hippurate [Hiprex] 1 gram Tablet 1 g feeding tube BID RF: 0 cholecalciferol (vitamin D3) 10 mcg/mL (400 unit/mL) Drops 10 mcg feeding tube DAILY RF: 0 levalbuterol HCl 1.25 mg/3 mL solution for nebulization 1.25 mg INHALATION BID Qty: 90 RF: 6 Referrals / Follow Up: Sandra Bermudez DO [Primary Care Provider] -
[2021-05-24 11:01] LABS: Differential Comment SCANNED
[2021-05-24 11:26] LABS: Bedside Glucose 191 mg/dL (70-110)
--- NOTE | 2021-05-24 12:03 | CM.UR ---
Notified by charge nurse Carlos that pt is dc'ing today and pt needs IV atb at home. RN CM in to pt room. Per pt mother, pt is current with [facility] but they are not allowed to do the IV's. Pt mother states she had done the IV's approx a month ago. She does feel comfortable to do again. She is unaware of which HHC company she had, but was pleased with all services and prefers to have the same again. Reviewed note from previous admission, pt had [facility] for infusion company and [facility] for HHC. TC to [facility], no one answered. TC to [facility], paged aviation maintenance technician. Received tc back from [facility], she states they cannot verify the insurance on the weekends. She states if this CM faxes everything over, they can verify first thing Wednesday morning and can do a SOC for Wednesday. Notified charge nurse. Will notify primary CM for arrangement of HHC with [facility] on Wednesday as well. Faxed all referral info at this time. Pt to have midline placed today.
[2021-05-24] MEDS: 0.9% Saline Lock 10 ML Syringe IV (14:13)
--- NOTE | 2021-05-24 15:49 | PN.HOSP_ITS ---
Subjective Subjective Patient is spiking temperature 100.3 ?F last evening but afterwards fever is controlled. Afternoon today 99.9 Fahrenheit. Patient father wants for discharge but needs IV antibiotic arrangement probably will happen on Wednesday Objective Data Objective Data Vital Signs: Vital Signs Temp Pulse Resp BP Pulse Ox 99.9 F H 115 H 18 133/83 H 100 05/24/21 15:34 05/24/21 15:34 05/24/21 15:34 05/24/21 15:34 05/24/21 15:34 Oxygen Flow Rate (L/min) 3 Oxygen Delivery Method Mechanical Ventilator Weight: 111 lb 8.862 oz Body Mass Index (BMI) 23.0 Intake & Output: Intake and Output for Last 24 Hours 05/22/21 05/23/21 05/24/21 23:59 23:59 23:59 Intake Total 2560 / 2660 2459 / 2709 1647 / 1647 Output Total 450 / 450 350 / 375 225 / 225 Balance 2110 / 2210 2109 / 2334 1422 / 1422 Lab / Micro Data Result Diagrams: 05/24/21 09:42 05/24/21 09:42 Labs: Laboratory Results - last 24 hr 05/23/21 16:09: POC Glucose 101 05/23/21 18:03: POC Glucose 96 05/23/21 21:50: POC Glucose 172 H 05/24/21 00:35: POC Glucose 111 H 05/24/21 05:06: POC Glucose 117 H 05/24/21 08:17: POC Glucose 106 05/24/21 09:42: WBC 6.0, RBC 2.78 L, Hgb 8.8 L, Hct 26.9 L, MCV 96.8, MCH 31.7, MCHC 32.7, RDW Std Deviation 45.3 H, RDW Coeff of Anne 12.7, Plt Count 162, MPV 9.5, Immature Gran % (Auto) 1.000 H, Neut % (Auto) 80.0 H, Lymph % (Auto) 6.0 L, Villalba % (Auto) 9.2, Eos % (Auto) 3.5, Baso % (Auto) 0.3, Absolute Neuts (auto) 4.8, Absolute Lymphs (auto) 0.36 L, Nucleated RBC % 0, Differential Comment SCANNED 05/24/21 09:42: Sodium 139, Potassium 3.1 L, Chloride 109 H, Carbon Dioxide 25.0, Anion Gap 5, BUN 5 L, Creatinine 0.35 L, Estim Creat Clear Calc 165.77, Est GFR (MDRD) Af Amer 281, Est GFR (MDRD) Non-Af 232, BUN/Creatinine Ratio 14.4, Glucose 187 H, Calcium 8.4 L, Magnesium 2.0, Total Bilirubin 0.40, AST 67 H, ALT 98 H, Alkaline Phosphatase 82, Total Protein 6.5, Albumin 2.7 L, Globulin 3.8, Albumin/Globulin Ratio 0.7 L 05/24/21 11:18: POC Glucose 191 H Micro: Microbiology 05/20/21 14:05 Urine Catheter - Catheter Urine Culture - Final Escherichia coli 05/20/21 13:35 Blood Culture (Wb) - Left Hand Blood Culture - Preliminary No growth in 48 hours. 05/20/21 13:00 Blood Culture (Wb) - Right Hand Blood Culture - Preliminary No growth in 48 hours. 05/20/21 16:45 Sputum, Induced/Lukens Gram Stain - Final 05/20/21 16:45 Sputum, Induced/Lukens Respiratory Culture - Final Serratia marcescens 05/20/21 14:37 Mucosa - Nose Respiratory Panel (PCR) - Final 05/20/21 14:05 Urine Catheter - Catheter Legionella Antigen - Final 05/20/21 14:05 Urine Catheter - Catheter Streptococcus pneumoniae Antigen (M - Final 05/20/21 13:45 Nasal Secretion SARS-CoV-2 Antigen (Rapid) - Final Assessment & Plan Assessment/Plan (1) Staghorn renal calculus: (2) Cerebral palsy: (3) Complicated UTI (urinary tract infection): PLAN: The patient is a 31 y/o F with multiple comorbidities including suprapubic catheter is admitted for high-grade fever, features of sepsis. The patient is on vent support through tracheostomy, 05/04 baseline. 1. Sepsis secondary to Acute on Chronic Hypoxic Respiratory Failure secondary to possible LLL Pneumonia, Complicated UTI with indwelling suprapubic catheter with history of staghorn calculi: Patient is admitted in ICU. Patient on vent support through tracheostomy as per home regimen. Seen by recreation facilities supervisor. On broad-spectrum antibiotic vancomycin and meropenem. Tracheostomy suction and tolerating. ID consult reviewed and I agree with the plan of antibiotic and urology consult recommendation. Covid PCR negative. Chest x-ray left basilar atelectasis. CT abdomen multiple nonobstructive calculi bladder. Preliminary urine culture shows presumptive E. coli more than 1000 colonies. Tracheal preliminary Gram stain shows gram-negative angelo 3+. PCR negative. 05/22: No fever last 24 hours. ID cleared for the urology procedure for source control. Discussed with urologist and gave clinical update about ID recommendation and clearance for urology procedure. She will schedule for her surgery. 05/23: Urine culture shows ESBL E. coli more than 100,000 colonies sensitive to meropenem. Sputum culture growing 3+ Serratia marcescens. Blood culture negative for more than 48 hours. Respiratory panel negative. Patient is scheduled for cystoscopy/ureteral lithotripsy in afternoon today 05/24: Patient had cystoscopy right ureteroscopy, laser lithotripsy and right ureteral stent insertion on 05/23/2021. Patient intermittently spiking temperature but it is controlled. Continue IV meropenem. Discharge process was initiated and given antibiotic ertapenem and weekly CBC BMP was ordered and discharged patient completed blood patient cannot go home today. Discussed with ID. 2. Hypokalemia: Potassium is corrected. Chronic normocytic anemia: Hemoglobin is stable. Baseline 10-11, stable, trend. Per estimate is low getting replaced. 3. 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 4. Chronic Hyponatremia with suspected mild acute component, hypovolemic: Admission sodium mildly decreased 131, chloride 95, repeat sodium and potassium normal. Chloride 109. 5. Diabetes mellitus type II: continue home insulin regimen, continue to feed with Accu-Cheks insulin coverage with Humalog sliding scale. 6. Hx Microalbuminuria: Patient was on on lisinopril regimen, not tolerated well, continue aggressive DM control. 7. DVT prophylaxis: SCDs, Lovenox. 8. CODE status: Patient HCPBHAVIN is her mother who is present. DNR-CCA, allowance of continued ventilation via tracheostomy given current status. Charges/Coding Visit Charges Inpatient E&M: 93981 Subs Hosp L2
[2021-05-24 16:31] LABS: Bedside Glucose 104 mg/dL (70-110)
[2021-05-24] MEDS: Potassium Chloride Oral Soln 20 MEQ/15 ML UDC 40 MEQ GT (17:19)
[2021-05-24 17:21] LABS: Bedside Glucose 91 mg/dL (70-110)
[2021-05-24] MEDS: Acetaminophen 650 MG/20 ML UDC GT (22:32)
[2021-05-25] VITALS (12 sets, daily range): BP systolic 105–118; BP diastolic 69–84; PULSE 63–99; RESP 16–20; TEMP 36.7–37.3; O2SAT 98–100
[2021-05-25] MEDS: 0.45% Normal Saline 1,000 ML 60 ML IV (03:09)
[2021-05-25] MEDS: Ibuprofen 100 MG/5 ML UDC PO ×2 (03:09→17:06)
[2021-05-25] MEDS: Acetaminophen 650 MG/20 ML UDC GT (03:09)
--- NOTE | 2021-05-25 05:56 | NURSING ---
This RN bladder scanned pt for 104 mL 8 hrs from last straight cath. Did not straight cath pt. Pt has had 2 large incontinent episodes and small bowel movement on this shift.
[2021-05-25] MEDS: Baclofen 10 MG Tablet 30 MG GT ×3 (06:10→20:03)
[2021-05-25] MEDS: diazePAM 2 MG Tablet GT ×2 (06:10→20:14)
[2021-05-25] MEDS: diazePAM 5 MG Tablet GT ×3 (06:11→20:14)
[2021-05-25] MEDS: Albuterol 2.5 MG/3 ML VIAL.NEB. INHALATION ×3 (06:52→18:54)
[2021-05-25] MEDS: Budesonide Respules 0.5 MG/2 ML AMPUL.NEB. INHALATION ×2 (06:52→18:54)
[2021-05-25] MEDS: Potassium Chloride Oral Soln 20 MEQ/15 ML UDC 40 MEQ GT (08:06)
[2021-05-25] MEDS: Methenamine Hippurate 1 GM Tablet PO ×2 (08:06→20:03)
[2021-05-25] MEDS: Famotidine 20 MG Tablet GT ×2 (08:06→20:04)
[2021-05-25] MEDS: Ferrous Sulfate 300 MG/5 ML UDC 60 MG GT (08:06)
[2021-05-25] MEDS: Insulin Lispro 100 UNIT/ML INSULN.PEN 8 UNIT SC ×4 (08:06→18:47)
[2021-05-25] MEDS: Enoxaparin 30 MG/0.3 ML Syringe SC (08:07)
[2021-05-25 10:01] LABS: Bedside Glucose 103 mg/dL (70-110)
--- NOTE | 2021-05-25 11:00 | NURSING ---
Pt bladder scanned for 319mL, straight cathed for 275mL of clear yellow urine and rebladder scanned for 41mL
[2021-05-25 11:50] LABS: Bedside Glucose 137 mg/dL (70-110)
[2021-05-25] MEDS: 0.9% Saline Lock 10 ML Syringe IV (13:47)
--- NOTE | 2021-05-25 14:24 | PN.HOSP_ITS ---
Subjective Subjective Patient little drowsy as per her mother at the bedside. Patient running IV fluid that is discontinued. Patient is still smiles. Objective Data Objective Data Vital Signs: Vital Signs Temp Pulse Resp BP Pulse Ox 98.7 F 85 20 H 105/81 H 100 05/25/21 11:00 05/25/21 12:48 05/25/21 12:48 05/25/21 11:00 05/25/21 11:00 Oxygen Flow Rate (L/min) 3 Oxygen Delivery Method Mechanical Ventilator Weight: 111 lb 15.917 oz Body Mass Index (BMI) 23.0 Intake & Output: Intake and Output for Last 24 Hours 05/23/21 05/24/21 05/25/21 23:59 23:59 23:59 Intake Total 2459 / 2709 1767 / 1767 1736 / 1736 Output Total 350 / 375 500 / 500 275 / 275 Balance 2109 / 2334 1267 / 1267 1461 / 1461 Lab / Micro Data Result Diagrams: 05/24/21 09:42 05/24/21 09:42 Labs: Laboratory Results - last 24 hr 05/24/21 14:08: POC Glucose 104 05/24/21 17:08: POC Glucose 91 05/25/21 08:03: POC Glucose 103 05/25/21 11:02: POC Glucose 137 H Micro: Microbiology 05/20/21 13:35 Blood Culture (Wb) - Left Hand Blood Culture - Final No growth in 5 days. 05/20/21 13:00 Blood Culture (Wb) - Right Hand Blood Culture - Final No growth in 5 days. 05/20/21 14:05 Urine Catheter - Catheter Urine Culture - Final Escherichia coli 05/20/21 16:45 Sputum, Induced/Lukens Gram Stain - Final 05/20/21 16:45 Sputum, Induced/Lukens Respiratory Culture - Final Serratia marcescens 05/20/21 14:37 Mucosa - Nose Respiratory Panel (PCR) - Final 05/20/21 14:05 Urine Catheter - Catheter Legionella Antigen - Final 05/20/21 14:05 Urine Catheter - Catheter Streptococcus pneumoniae Antigen (M - Final 05/20/21 13:45 Nasal Secretion SARS-CoV-2 Antigen (Rapid) - Final Physical Exam Narrative General: Short stature, cerebral palsy, mild lethargy, nonverbal and noncommunicative HEENT: Atraumatic, PERRLA, EOMI. Blink eyes intermittently Oral: Mouth open. Sometimes drooling. Neck: Tracheostomy. Neck rotated on left lateral position. Lungs: Air entry diminished in bilateral lung bases. No crepitation/rhonchi Cardiovascular: Regular rate, Regular Rhythm, Normal S1, Normal S2, No murmurs Abdomen: Bowel Sounds Present, Soft, Non Tender, Non-Distended : No renal angle tenderness. No suprapubic tenderness. Clear urine. Extremities: No edema, Capillary Refill Less than 3 Seconds Skin: No rashes, No breakdown Musculoskeletal: Surgical scar on the left hip region in the past. Contracture of upper and lower extremities and neck. Neurological: Cranial nerves II-XII grossly intact, cerebral palsy with limited function. Psych/Mental Status: Flat affect. Assessment & Plan Assessment/Plan (1) Staghorn renal calculus: (2) Cerebral palsy: (3) Complicated UTI (urinary tract infection): PLAN: The patient is a 31 y/o F with multiple comorbidities including suprapubic catheter is admitted for high-grade fever, features of sepsis. The patient is on vent support through tracheostomy, 05/04 baseline. 1. Sepsis secondary to Acute on Chronic Hypoxic Respiratory Failure secondary to possible LLL Pneumonia, Complicated UTI with indwelling suprapubic catheter with history of staghorn calculi: Patient is admitted in ICU. Patient on vent support through tracheostomy as per home regimen. Seen by field application engineer. On broad-spectrum antibiotic vancomycin and meropenem. Tracheostomy suction and tolerating. ID consult reviewed and I agree with the plan of antibiotic and urology consult recommendation. Covid PCR negative. Chest x-ray left basilar atelectasis. CT abdomen multiple nonobstructive calculi bladder. Preliminary urine culture shows presumptive E. coli more than 1000 colonies. Tracheal preliminary Gram stain shows gram-negative angelo 3+. PCR negative. 05/22: No fever last 24 hours. ID cleared for the urology procedure for source control. Discussed with urologist and gave clinical update about ID recommendation and clearance for urology procedure. She will schedule for her surgery. 05/23: Urine culture shows ESBL E. coli more than 100,000 colonies sensitive to meropenem. Sputum culture growing 3+ Serratia marcescens. Blood culture negative for more than 48 hours. Respiratory panel negative. Patient is scheduled for cystoscopy/ureteral lithotripsy in afternoon today 05/24: Patient had cystoscopy right ureteroscopy, laser lithotripsy and right ureteral stent insertion on 05/23/2021. Patient intermittently spiking temperature but it is controlled. Continue IV meropenem. Discharge process was initiated and given antibiotic ertapenem and weekly CBC BMP was ordered and discharged patient completed blood patient cannot go home today. Discussed with ID. 05/25: Since mild fluid overload. IV fluid discontinued. Lasix 20 mg IV 1 dose ordered if systolic blood pressure more than 120 but blood pressure is in 100s to 110s. 2. Hypokalemia: Potassium is corrected. Chronic normocytic anemia: Hemoglobin is stable. Baseline 10-11, stable, trend. Per estimate is low getting replaced. 3. 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 4. Chronic Hyponatremia with suspected mild acute component, hypovolemic: Admission sodium mildly decreased 131, chloride 95, repeat sodium and potassium normal. Chloride 109. 5. Diabetes mellitus type II: continue home insulin regimen, continue to feed with Accu-Cheks insulin coverage with Humalog sliding scale. 6. Hx Microalbuminuria: Patient was on on lisinopril regimen, not tolerated well, continue aggressive DM control. 7. DVT prophylaxis: SCDs, Lovenox. 8. CODE status: Patient HCPOA is her mother who is present. DNR-CCA, allowance of continued ventilation via tracheostomy given current status. Charges/Coding Visit Charges Inpatient E&M: 92881 Subs Hosp L2
[2021-05-25 16:20] LABS: Bedside Glucose 126 mg/dL (70-110)
[2021-05-25 17:21] LABS: Bedside Glucose 80 mg/dL (70-110)
[2021-05-25 18:56] LABS: Bedside Glucose 175 mg/dL (70-110)
--- NOTE | 2021-05-25 18:56 | NURSING ---
Bladder scanned patient for 304 mL of urine, straight cathed for 250 mL of clear yellow urine and residual bladder scan of 44 mL.
[2021-05-26] VITALS (8 sets, daily range): BP systolic 107–112; BP diastolic 52–75; PULSE 60–92; RESP 14–18; TEMP 36.6–37; O2SAT 100
[2021-05-26] MEDS: diazePAM 5 MG Tablet GT ×2 (05:11→13:58)
[2021-05-26] MEDS: Baclofen 10 MG Tablet 30 MG GT ×2 (05:11→13:58)
[2021-05-26] MEDS: diazePAM 2 MG Tablet GT (05:11)
--- NOTE | 2021-05-26 05:27 | NURSING ---
bladder scanned pt for 321. Straight cathed with return of 200ml.
[2021-05-26] MEDS: Albuterol 2.5 MG/3 ML VIAL.NEB. INHALATION ×2 (07:02→12:49)
[2021-05-26] MEDS: Budesonide Respules 0.5 MG/2 ML AMPUL.NEB. INHALATION (07:02)
[2021-05-26] MEDS: Ferrous Sulfate 300 MG/5 ML UDC 60 MG GT (09:05)
[2021-05-26] MEDS: Methenamine Hippurate 1 GM Tablet PO (09:06)
[2021-05-26] MEDS: Enoxaparin 30 MG/0.3 ML Syringe SC (09:06)
[2021-05-26] MEDS: Potassium Chloride Oral Soln 20 MEQ/15 ML UDC 40 MEQ GT ×2 (09:06→11:19)
[2021-05-26] MEDS: Famotidine 20 MG Tablet GT (09:06)
[2021-05-26] MEDS: Insulin Lispro 100 UNIT/ML INSULN.PEN 8 UNIT SC ×2 (09:34→14:04)
[2021-05-26 09:50] LABS: Bedside Glucose 87 mg/dL (70-110)
--- NOTE | 2021-05-26 10:37 | DCINST_ITS ---
Discharge Instructions Diet Discharge Diet: - (TUBE FEED) Dressing / Incision Call your doctor if you observe: Fever of 101 or Higher, Coldness, Increased Pain, Numbness or Tingling, Change in Color, Inability to urinate, Inability to have a bowel movement, Shortness of breath, Dizziness, Fainting spells, Swelling in the ankles, Chest pain, Prolonged hiccupping, Increased palpitations (irregular heartbeat), Calf discomfort and Uncontrolled pain Additional Dressing/Incision Instructions:: Patient will be discharged with midline Follow Up Care Test Results: Test results from this visit will be discussed in further detail at your follow-up appointment, if applicable. Discharge Plan Admission Admit Date/Time: 05/20/21 15:06 Primary Reason for Your Visit: Complicated UTI with staghorn calculus Attending Provider: River Mireles Primary Care Provider: Sandra Bermudez Consulting Providers: Rafa Bettencourt ; Landry Valenzuela ; Samaria Anaya Discharge Orders/Prescriptions Prescriptions: New ertapenem 1 gram recon soln 1 g IM Q24H Qty: 21 RF: 0 sennosides-docusate sodium [Stool Softener-Stimulant Laxat] 8.6-50 mg Tablet 2 tab G-tube BID PRN (Reason: Constipation) Qty: 0 RF: 0 Daily Fiber (psyllium-aspart) 3 gram Powder In Packet 1 packet G-tube DAILY PRN PRN (Reason: Constipation) Qty: 0 RF: 0 acidophilus-pectin, citrus 25 million cell -100 mg Tablet 1 tab G-tube BID Qty: 0 RF: 0 Continued oxcarbazepine [Trileptal] 300 mg/5 mL (60 mg/mL) suspension 8 ml GT BID RF: 0 insulin aspart U-100 100 unit/mL (3 mL) insulin pen 8 units SQ 4X/DAY RF: 0 baclofen 20 MG tablet 30 mg GT TID RF: 0 fluticasone propionate 44 mcg/actuation Hfa Aerosol Inhaler 2 puff INHALATION BID RF: 0 ferrous sulfate 15 mg iron (75 mg)/mL Syringe 60 mg feeding tube DAILY RF: 0 diazepam 5 mg/5 mL (1 mg/mL) Solution 7 mg feeding tube BID RF: 0 diazepam 5 mg/5 mL (1 mg/mL) Solution 5 mg feeding tube DAILY@1400 RF: 0 methenamine hippurate [Hiprex] 1 gram Tablet 1 g feeding tube BID RF: 0 cholecalciferol (vitamin D3) 10 mcg/mL (400 unit/mL) Drops 10 mcg feeding tube DAILY RF: 0 levalbuterol HCl 1.25 mg/3 mL solution for nebulization 1.25 mg INHALATION BID Qty: 90 RF: 6 Other Ambulatory Orders: CBC W/Diff, Automated (QWEEK) Timeframe: 20210606 Facility: [facility] - Location: Laboratory Ordered By: Dr. River Mireles CBC W/Diff, Automated (QWEEK) Timeframe: [id number] Facility: [facility] - Location: Laboratory Ordered By: Dr. River Mireles Comprehensive Metabolic Profil (QWEEK) Timeframe: [id number] Facility: [facility] - Location: Laboratory Ordered By: Dr. River Mireles Comprehensive Metabolic Profil (QWEEK) Timeframe: [id number] Facility: [facility] - Location: Laboratory Ordered By: Dr. River Mireles Comprehensive Metabolic Profil (QWEEK) Timeframe: [id number] Facility: [facility] - Location: Laboratory Ordered By: Dr. River Mireles Referrals / Follow Up: Sandra Bermudez DO [Primary Care Provider] - Disposition Disposition (needs filled in before D/C Order can be placed): Home, Self Care
--- NOTE | 2021-05-26 10:44 | CASEMGMT ---
Addendum entered by Mey Weinstein 05/26/21 14:04: Per Magali MARADIAGA, pt's ertapenem dose to be hung at 1345. Pt will also need quick-cathed three times daily. Message left with [facility] in regards to med time given. Magali MARADIAGA to instruct mother on quick cath. [facility] will also be able to assist and pt has teacher private that mother states can call as she lives just up the road, if needed. Pt's mom voices no further questions/concerns/needs and thanks this HIREN WILSON. Moose MARADIAGA CM Original Note: Referral faxed to [facility] this am and midline documentation faxed to [facility]. Call from [facility] and per Yana, she already spoke with [facility] and they can do start of care tomorrow. Pt is currently on meropenem but will be getting ertapenem at home and Dr. Mireles aware that pt will likely need dose prior to d/c but pt did have meropenem today already. This RN CM placed call to [facility] pharmacist, and she states should have a dose of ertapenem prior to discharge and the earliest it can be given is 1315. Dr. Mireles and Magali MARADIAGA updated, voice understanding. This RN CM updated pt's mother on all, voices understanding and voices no further questions/concerns/needs. Moose MARADIAGA CM
[2021-05-26] MEDS: Ibuprofen 100 MG/5 ML UDC PO (11:20)
[2021-05-26 14:06] LABS: Bedside Glucose 129 mg/dL (70-110)
--- NOTE | 2021-05-26 14:39 | DS.PCM_ITS ---
Providers Date of Admission: 05/20/21 Primary Care Physician: Dr. Sandra Bermudez DO Consultations 05/20/21 16:03 Consult: Infectious Disease Routine Consulting Provider: Rafa Bettencourt Reason for Consult: Sepsis, Suspected complicated UTI, Possible LLL PNA EMERGENT Consult: No MD Notified: Yes Date Notified: 05/20/21 Time Notified: 16:39 Method of Notification: Text Consult: Blackjack Supervisor / Pulmonary Medicine Routine Consulting Provider: Landry Valenzuela Reason for Consult: Resp failure, Sepsis, PNA LLL, UTI EMERGENT Consult: No MD Notified: Yes Date Notified: 05/20/21 Time Notified: 15:01 Method of Notification: cortext 05/21/21 13:31 Consult: Urology Routine Consulting Provider: Samaria Anaya Reason for Consult: recurrent uti, stones EMERGENT Consult: No Notified: Yes Date Notified: 05/21/21 Time Notified: 14:44 Method of Notification: Page Reason For Visit: RESP FAILURE / SEPSIS / LLL PNA / UTI Diagnosis Discharge Diagnosis (1) Staghorn renal calculus: Status: Acute Code(s): N20.0 - Calculus of kidney (2) Cerebral palsy: Status: Acute Code(s): G80.9 - Cerebral palsy, unspecified (3) Complicated UTI (urinary tract infection): Status: Acute Code(s): N39.0 - Urinary tract infection, site not specified Medications at Discharge Home Medications baclofen 30 mg GT TID 09/02/13 oxcarbazepine 300 mg/5 mL (60 mg/mL) oral suspension 8 ml GT BID ml 08/28/17 insulin aspart U-100 100 unit/mL (3 mL) subcutaneous pen 8 units SQ 4X/DAY 09/20/20 ferrous sulfate 60 mg FEEDING TUBE DAILY 02/28/21 fluticasone propionate 2 puff INHALATION BID 02/28/21 levalbuterol HCl 1.25 mg/3 mL solution for nebulization 1.25 mg INHALATION BID #90 ml 03/05/21 cholecalciferol (vitamin D3) 10 mcg FEEDING TUBE DAILY 05/20/21 diazepam 5 mg FEEDING TUBE DAILY@1400 05/20/21 diazepam 7 mg FEEDING TUBE BID 05/20/21 methenamine hippurate [Hiprex] 1 g FEEDING TUBE BID 05/20/21 acidophilus-pectin, citrus 1 tab G-TUBE BID #0 tab 05/24/21 ertapenem 1 g IM Q24H #21 ea 05/24/21 psyllium husk (aspartame) [Daily Fiber (psyllium-aspart)] 1 packet G-TUBE DAILY PRN PRN #0 ea 05/24/21 sennosides-docusate sodium [Stool Softener-Stimulant Laxat] 2 tab G-TUBE BID PRN #0 tab 05/24/21 Hospital Course Summary of Care Provided Hospital Course: The patient is a 31 y/o F with multiple comorbidities including suprapubic catheter is admitted for high-grade fever, features of sepsis. The patient is on vent support through tracheostomy, 05/04 baseline. 1. Sepsis (fever, tachypnea, tachycardia, leukocytosis) due to acute on Chronic Hypoxic Respiratory Failure secondary to Serratia marcescens LLL Pneumonia, E. coli ESBL complicated UTI with indwelling suprapubic catheter with history of staghorn calculi: Patient is admitted in ICU. Patient on vent support through tracheostomy as per home regimen. Seen by press tender smoke signal. On broad-spectrum antibiotic vancomycin and meropenem. Tracheostomy suction and tolerating. Patient was comanaged with ID and urologist. Covid PCR negative. Chest x-ray left basilar atelectasis. CT abdomen multiple nonobstructive calculi bladder. Preliminary urine culture shows presumptive E. coli more than 1000 colonies. Tracheal culture shows Serratia marcescens 3+; Sensitive to ertapenem. Respiratory panel negative. COVID-19 RT-PCR negative. Urinary antigens negative. Urine culture shows ESBL E. coli more than 100,000 colonies sensitive to meropenem. Blood culture negative for more than 48 hours. Respiratory panel negative. Patient had cystoscopy right ureteroscopy, laser lithotripsy and right ureteral stent insertion on 05/23/2021. Postprocedure patient had 1-2 times temperature spikes but controlled on IV meropenem. Patient is discharged on ertapenem for total of 3 weeks as per ID recommendation. Weekly CBC and CMP on antibiotic 2. Hypokalemia: Mild hypokalemia. Potassium is corrected. Chronic normocytic anemia: Hemoglobin is stable. Baseline 10-11, stable, trend. Per estimate is low getting replaced. 3. 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 4. Chronic Hyponatremia with suspected mild acute component, hypovolemic: Electrolytes were corrected. Hypokalemia corrected 5. Diabetes mellitus type II: continue home insulin regimen, continue to feed with Accu-Cheks insulin coverage with Humalog sliding scale. 6. Hx Microalbuminuria: Patient was on on lisinopril regimen, not tolerated well, continue aggressive DM control. 7. DVT prophylaxis: SCDs, Lovenox. 8. CODE status: Patient OVIDIO is her mother who is present. DNR-CCA, allowance of continued ventilation via tracheostomy given current status. Discharge medication reconciliation done. Discharge follow-up instructions completed. Discharge process discussed with the patient and all questions were answered to patient's satisfaction. Total time spent, exact 35 minutes on discharge meds reconciliation, examination, coordination of care with nurses and ancillary staff, review of imaging and blood test and discussion with the patient on follow-up instructions Physical Exam Narrative General: Short stature, cerebral palsy, nonverbal and noncommunicative: On baseline HEENT: Atraumatic, PERRLA, EOMI. Blink eyes intermittently Oral: Mouth open. Sometimes drooling. Neck: Tracheostomy. Neck rotated on left lateral position. Lungs: Air entry diminished in bilateral lung bases. No crepitation/rhonchi Cardiovascular: Regular rate, Regular Rhythm, Normal S1, Normal S2, No murmurs Abdomen: Bowel Sounds Present, Soft, Non Tender, Non-Distended : No renal angle tenderness. No suprapubic tenderness. Clear urine. Extremities: No edema, Capillary Refill Less than 3 Seconds Skin: No rashes, No breakdown Musculoskeletal: Surgical scar on the left hip region in the past. Contracture of upper and lower extremities and neck. Neurological: Cranial nerves II-XII grossly intact, cerebral palsy with limited function. Psych/Mental Status: Flat affect. Weight / BMI Weight Weight: 112 lb 6.972 oz Body Mass Index (BMI) 23.0 ABG / Lab / Microbiology Data Result Diagrams: 05/24/21 09:42 05/24/21 09:42 Laboratory: Laboratory Results - last 24 hr 05/25/21 13:51: POC Glucose 126 H 05/25/21 17:03: POC Glucose 80 09/12/21 18:45: POC Glucose 175 H 05/26/21 09:15: POC Glucose 87 05/26/21 13:55: POC Glucose 129 H Microbiology: Microbiology 05/20/21 13:35 Blood Culture (Wb) - Left Hand Blood Culture - Final No growth in 5 days. 05/20/21 13:00 Blood Culture (Wb) - Right Hand Blood Culture - Final No growth in 5 days. 05/20/21 14:05 Urine Catheter - Catheter Urine Culture - Final Escherichia coli 05/20/21 16:45 Sputum, Induced/Lukens Gram Stain - Final 05/20/21 16:45 Sputum, Induced/Lukens Respiratory Culture - Final Serratia marcescens 05/20/21 14:37 Mucosa - Nose Respiratory Panel (PCR) - Final 05/20/21 14:05 Urine Catheter - Catheter Legionella Antigen - Final 05/20/21 14:05 Urine Catheter - Catheter Streptococcus pneumoniae Antigen (M - Final 05/20/21 13:45 Nasal Secretion SARS-CoV-2 Antigen (Rapid) - Final D/C Instructions Discharge Diet: - (TUBE FEED) Call your doctor if you observe: Fever of 101 or Higher, Coldness, Increased Pain, Numbness or Tingling, Change in Color, Inability to urinate, Inability to have a bowel movement, Shortness of breath, Dizziness, Fainting spells, Swelling in the ankles, Chest pain, Prolonged hiccupping, Increased palpitations (irregular heartbeat), Calf discomfort and Uncontrolled pain Additional Dressing/Incision Instructions: Patient will be discharged with midline Meaningful Use Info Meaningful Use Diagnoses (Choose all that apply): None applicable Discharge Plan Admission Admit Date/Time: 05/20/21 15:06 Primary Reason for Your Visit: Complicated UTI with staghorn calculus Attending Provider: River Mireles Primary Care Provider: Sandra Bermudez Consulting Providers: Rafa Bettencourt ; Landry Valenzuela ; Samaria Anaya Discharge Orders/Prescriptions Prescriptions: New ertapenem 1 gram recon soln 1 g IM Q24H Qty: 21 RF: 0 sennosides-docusate sodium [Stool Softener-Stimulant Laxat] 8.6-50 mg Tablet 2 tab G-tube BID PRN (Reason: Constipation) Qty: 0 RF: 0 Daily Fiber (psyllium-aspart) 3 gram Powder In Packet 1 packet G-tube DAILY PRN PRN (Reason: Constipation) Qty: 0 RF: 0 acidophilus-pectin, citrus 25 million cell -100 mg Tablet 1 tab G-tube BID Qty: 0 RF: 0 Continued oxcarbazepine [Trileptal] 300 mg/5 mL (60 mg/mL) suspension 8 ml GT BID RF: 0 insulin aspart U-100 100 unit/mL (3 mL) insulin pen 8 units SQ 4X/DAY RF: 0 baclofen 20 MG tablet 30 mg GT TID RF: 0 fluticasone propionate 44 mcg/actuation Hfa Aerosol Inhaler 2 puff INHALATION BID RF: 0 ferrous sulfate 15 mg iron (75 mg)/mL Syringe 60 mg feeding tube DAILY RF: 0 diazepam 5 mg/5 mL (1 mg/mL) Solution 7 mg feeding tube BID RF: 0 diazepam 5 mg/5 mL (1 mg/mL) Solution 5 mg feeding tube DAILY@1400 RF: 0 methenamine hippurate [Hiprex] 1 gram Tablet 1 g feeding tube BID RF: 0 cholecalciferol (vitamin D3) 10 mcg/mL (400 unit/mL) Drops 10 mcg feeding tube DAILY RF: 0 levalbuterol HCl 1.25 mg/3 mL solution for nebulization 1.25 mg INHALATION BID Qty: 90 RF: 6 Other Ambulatory Orders: CBC W/Diff, Automated (QWEEK) Timeframe: 20210606 Facility: [facility] - Location: Laboratory Ordered By: Dr. River Mireles CBC W/Diff, Automated (QWEEK) Timeframe: [id number] Facility: [facility] - Location: Laboratory Ordered By: Dr. River Mireles Comprehensive Metabolic Profil (QWEEK) Timeframe: [id number] Facility: [facility] - Location: Laboratory Ordered By: Dr. River Mireles Comprehensive Metabolic Profil (QWEEK) Timeframe: [id number] Facility: [facility] - Location: Laboratory Ordered By: Dr. River Mireles Comprehensive Metabolic Profil (QWEEK) Timeframe: [id number] Facility: [facility] - Location: Laboratory Ordered By: Dr. River Mireles Referrals / Follow Up: Sandra Bermudez DO [Primary Care Provider] - Disposition Disposition (needs filled in before D/C Order can be placed): Home, Self Care Charges/Coding Visit Charges Inpatient E&M: 79054 Disch Hosp
--- NOTE | 2021-05-26 14:59 | PHA.DC.MR ---
Pharmacy Service has performed discharge medication reconciliation for this patient. The patient's discharge medication list was reviewed for discrepancies and discrepancies were resolved. Home Medications baclofen 30 mg GT TID 09/02/13 oxcarbazepine 300 mg/5 mL (60 mg/mL) oral suspension 8 ml GT BID ml 08/28/17 insulin aspart U-100 100 unit/mL (3 mL) subcutaneous pen 8 units SQ 4X/DAY 09/20/20 ferrous sulfate 60 mg FEEDING TUBE DAILY 02/28/21 fluticasone propionate 2 puff INHALATION BID 02/28/21 levalbuterol HCl 1.25 mg/3 mL solution for nebulization 1.25 mg INHALATION BID #90 ml 03/05/21 cholecalciferol (vitamin D3) 10 mcg FEEDING TUBE DAILY 05/20/21 diazepam 5 mg FEEDING TUBE DAILY@1400 05/20/21 diazepam 7 mg FEEDING TUBE BID 05/20/21 methenamine hippurate [Hiprex] 1 g FEEDING TUBE BID 05/20/21 acidophilus-pectin, citrus 1 tab G-TUBE BID #0 tab 05/24/21 ertapenem 1 g IM Q24H #21 ea 05/24/21 psyllium husk (aspartame) [Daily Fiber (psyllium-aspart)] 1 packet G-TUBE DAILY PRN PRN #0 ea 05/24/21 sennosides-docusate sodium [Stool Softener-Stimulant Laxat] 2 tab G-TUBE BID PRN #0 tab 05/24/21
--- NOTE | 2021-05-26 16:00 | NURSING ---
This RN into room with Mable Huynh RN to teach mother how to straight cath patient until home health can come to families house. Verbal instructions, print out, and demonstration provided to patient's mother. Pt was straight cathed by mother with assistance of this RN properly and effectively. 200ml light yellow urine drained. Mother was able to properly remove straight cath from urethra. Mother able to identify and show this RN location of urethra and demonstrated entire procedure back to this RN and verbalized no further questions or concerns.
--- NOTE | 2021-05-27 13:46 | CASEMGMT ---
HIREN WILSON Discharge Follow-up Phone Call: DYLAN: 15 Strata: 4 Call Date: 05/27/21 Discharge Date: 05/26/21 Time of Call: 1340 Duration: 5 min Admitting Diagnosis: Resp failure, sepsis, UTI, LLL PNA RN KATIE competed follow-up phone call after recent hospitalization. Patient mother Rina answered, patient is doing well. Rina is having difficulty with inserting straight cath [facility] assisting and working with Dr. Anaya's office regarding indwelling saba cath. Home IV ATBs were delivered with no problems. Mother Rina to schedule follow-up appt with PCP. Mother had no further questions or concerns at this time.
== END 2021-05-26 17:01 | disposition home or self-care (01) | DRG 710 ==
LOC: ED 14:35 → ICU 15:13 → PCU 05-23 14:53
PROVIDERS: Urology; Admitting Provider Family Medicine; Emergency Provider Emergency Medicine; PCP Internal Medicine; Visit Provider Internal Medicine
PROC: 0TJ98ZZ Inspection of Ureter, Via Natural or Artificial Opening Endoscopic (ICD-10-PCS; CPT 52352; principal; 2021-05-23 12:40)
DX: A41.9 Sepsis, unspecified organism (principal); J96.21 Acute and chronic respiratory failure with hypoxia; J15.6 Pneumonia due to other Gram-negative bacteria; N39.0 Urinary tract infection, site not specified; B96.20 Unspecified Escherichia coli [E. coli] as the cause of diseases classified elsewhere; E87.6 Hypokalemia; D64.9 Anemia, unspecified; G80.0 Spastic quadriplegic cerebral palsy; G40.909 Epilepsy, unspecified, not intractable, without status epilepticus; Z93.1 Gastrostomy status; E86.1 Hypovolemia; E87.1 Hypo-osmolality and hyponatremia; E11.65 Type 2 diabetes mellitus with hyperglycemia; Z66 Do not resuscitate; Z79.4 Long term (current) use of insulin; Z87.442 Personal history of urinary calculi; Z93.0 Tracheostomy status; Z99.11 Dependence on respirator [ventilator] status; Z93.50 Unspecified cystostomy status; N20.0 Calculus of kidney
CPT/HCPCS: 31720; 36415; 71045; 74176; 76000; 80053; 80202; 81001; 82360; 82962; 83605; 83735; 84100; 85025; 85610; 85730; 87040; 87070; 87077; 87086; 87088; 87186; 87205; 87426; 87449; 87633; 87635; 93005; 94002; 94640; 97161; 97166; 97803; 99285; J2185; J7030; J7040; J7050; P9612; U0005; A4216; J2405; U0003

== ENCOUNTER → 2021-05-30 | Outpatient (CLI) | payer MEDICAID, SELFPAY ==
[2021-05-30 13:18] LABS: Absolute Lymphocyte Count 1.99 X10^3/uL (0.83-4.51); Absolute Neutrophil Count 4.9 X10^3/uL (2.0-7.7); Basophil# 0.05 X10^3/uL; Basophil% 0.6 % (0-1); Eosinophil# 0.25 X10^3/uL; Eosinophils% 3.2 % (0-5); Hematocrit 30.2 % (37-47); Hemoglobin 10.5 g/dL (12.0-15.0); Lymphocyte # 1.99 X10^3/ul (0.83-4.51); Lymphocyte % 25.5 % (19-41); Mean Corp Hgb Conc 34.8 g/dL (32-36); Mean Corpuscular Hgb 31.6 pg (27.0-32.0); Mean Platelet Vol. 10.2 fl (6.2-12.0); Monocyte# 0.38 X10^3/uL; Monocyte% 4.9 % (0-10); NRBC Flagged by Analyzer 0 % (0-5); Neutrophil # 4.92 X10^3/uL (2.7-7.7); Platelet Count 289 K/mm3 (150-450); RBC Distribution Width CV 12.6 % (11.6-14.6); RBC Distribution Width SD 40.8 fl (35.1-43.9); Red Blood Count 3.32 M/mm3 (4.2-5.4); White Blood Count 7.8 K/mm3 (4.4-11.0)
[2021-05-30 14:11] LABS: ALB/GLOB Ratio 0.9 RATIO (0.9-2.4); AST(SGOT) 16 U/L (15-37); Alanine Aminotransfer ALT/SGPT 34 U/L (13-56); Albumin, Serum 3.5 g/dL (3.2-5.0); Alkaline Phosphatase 92 U/L (45-117); Anion Gap 8 (5-15); BUN 9 mg/dL (7-18); BUN/Creat Ratio 21.4 RATIO (10-20); Calcium,Total 9.5 mg/dL (8.5-10.1); Chloride 96 mmol/L (98-107); Creatinine, Serum 0.42 mg/dL (0.55-1.02); EST Glomerular Filtration Rate 187 mL/min (>60); Est Glom Filt Rate - Afr Amer 226 mL/min (>60); Globulin 3.7 g/dL (2.2-4.2); Glucose 169 mg/dL (74-106); Protein, Total 7.2 g/dL (6.4-8.2); Sodium Level 133 mmol/L (136-145)
== END | disposition home or self-care (01) ==
LOC: LABSPEC 15:17
PROVIDERS: PCP Internal Medicine; Visit Provider Internal Medicine
DX: N39.0 Urinary tract infection, site not specified (principal); B96.29 Other Escherichia coli [E. coli] as the cause of diseases classified elsewhere; Z16.12 Extended spectrum beta lactamase (ESBL) resistance
CPT/HCPCS: 80053; 85025

== ENCOUNTER → 2021-06-05 | Outpatient (CLI) | payer MEDICAID, SELFPAY ==
[2021-06-05 13:57] LABS: Absolute Lymphocyte Count 1.11 X10^3/uL (0.83-4.51); Absolute Neutrophil Count 4.5 X10^3/uL (2.0-7.7); Basophil# 0.02 X10^3/uL; Basophil% 0.3 % (0-1); Eosinophil# 0.14 X10^3/uL; Eosinophils% 2.3 % (0-5); Hematocrit 30.4 % (37-47); Hemoglobin 10.4 g/dL (12.0-15.0); Lymphocyte # 1.11 X10^3/ul (0.83-4.51); Lymphocyte % 17.9 % (19-41); Mean Corp Hgb Conc 34.2 g/dL (32-36); Mean Corpuscular Hgb 31.6 pg (27.0-32.0); Mean Corpuscular Volume 92.4 fL (81-99); Mean Platelet Vol. 10.6 fl (6.2-12.0); Monocyte# 0.44 X10^3/uL; Monocyte% 7.1 % (0-10); NRBC Flagged by Analyzer 0 % (0-5); Neutrophil # 4.47 X10^3/uL (2.7-7.7); Neutrophil % 71.9 % (47-70); Platelet Count 333 K/mm3 (150-450); RBC Distribution Width CV 12.9 % (11.6-14.6); RBC Distribution Width SD 43.5 fl (35.1-43.9); Red Blood Count 3.29 M/mm3 (4.2-5.4); White Blood Count 6.2 K/mm3 (4.4-11.0)
[2021-06-05 14:28] LABS: AST(SGOT) 19 U/L (15-37); Alanine Aminotransfer ALT/SGPT 25 U/L (13-56); Albumin, Serum 3.6 g/dL (3.2-5.0); Alkaline Phosphatase 85 U/L (45-117); Anion Gap 8 (5-15); BUN 7 mg/dL (7-18); BUN/Creat Ratio 17.5 RATIO (10-20); Calcium,Total 9.1 mg/dL (8.5-10.1); Chloride 98 mmol/L (98-107); EST Glomerular Filtration Rate 198 mL/min (>60); Est Glom Filt Rate - Afr Amer 240 mL/min (>60); Globulin 3.5 g/dL (2.2-4.2); Glucose 170 mg/dL (74-106); Potassium 3.8 mmol/L (3.5-5.1); Protein, Total 7.1 g/dL (6.4-8.2); Sodium Level 133 mmol/L (136-145)
== END | disposition home or self-care (01) ==
LOC: LABSPEC 13:31
PROVIDERS: PCP Internal Medicine; Visit Provider Internal Medicine
DX: N39.0 Urinary tract infection, site not specified (principal); B96.29 Other Escherichia coli [E. coli] as the cause of diseases classified elsewhere; Z16.12 Extended spectrum beta lactamase (ESBL) resistance
CPT/HCPCS: 80053; 85025

== ENCOUNTER → 2021-06-16 09:44 | Outpatient (CLI) | payer MEDICAID, SELFPAY ==
[2021-06-16 10:44] LABS: Absolute Lymphocyte Count 1.13 X10^3/uL (0.83-4.51); Absolute Neutrophil Count 3.9 X10^3/uL (2.0-7.7); Basophil# 0.02 X10^3/uL; Basophil% 0.3 % (0-1); Eosinophil# 0.24 X10^3/uL; Eosinophils% 4.1 % (0-5); Hematocrit 32.5 % (37-47); Hemoglobin 10.7 g/dL (12.0-15.0); Lymphocyte # 1.13 X10^3/ul (0.83-4.51); Lymphocyte % 19.4 % (19-41); Mean Corp Hgb Conc 32.9 g/dL (32-36); Mean Corpuscular Hgb 31.5 pg (27.0-32.0); Mean Corpuscular Volume 95.6 fL (81-99); Mean Platelet Vol. 10.2 fl (6.2-12.0); Monocyte# 0.48 X10^3/uL; Monocyte% 8.2 % (0-10); NRBC Flagged by Analyzer 0 % (0-5); Neutrophil # 3.94 X10^3/uL (2.7-7.7); Neutrophil % 67.7 % (47-70); Platelet Count 259 K/mm3 (150-450); RBC Distribution Width CV 12.2 % (11.6-14.6); RBC Distribution Width SD 43.1 fl (35.1-43.9); White Blood Count 5.8 K/mm3 (4.4-11.0)
[2021-06-16 11:16] LABS: ALB/GLOB Ratio 0.8 RATIO (0.9-2.4); AST(SGOT) 8 U/L (15-37); Alanine Aminotransfer ALT/SGPT 20 U/L (13-56); Albumin, Serum 3.2 g/dL (3.2-5.0); Alkaline Phosphatase 101 U/L (45-117); Anion Gap 11 (5-15); BUN 8 mg/dL (7-18); BUN/Creat Ratio 16.8 RATIO (10-20); Bilirubin, Direct < 0.05 mg/dL (0.00-0.30); Calcium,Total 9.4 mg/dL (8.5-10.1); Chloride 97 mmol/L (98-107); Creatinine, Serum 0.48 mg/dL (0.55-1.02); EST Glomerular Filtration Rate 162 mL/min (>60); Est Glom Filt Rate - Afr Amer 196 mL/min (>60); Globulin 4.2 g/dL (2.2-4.2); Glucose 167 mg/dL (74-106); Potassium 3.7 mmol/L (3.5-5.1); Protein, Total 7.4 g/dL (6.4-8.2); Sodium Level 134 mmol/L (136-145)
== END ==
PROVIDERS: Internal Medicine; PCP Internal Medicine; Visit Provider Internal Medicine Infectious Disease
DX: N39.0 Urinary tract infection, site not specified (principal); B96.29 Other Escherichia coli [E. coli] as the cause of diseases classified elsewhere; Z16.12 Extended spectrum beta lactamase (ESBL) resistance
CPT/HCPCS: 36415; 80053; 82248; 85025

== ENCOUNTER 2021-06-25 17:43 | Inpatient (IN) | payer MEDICAID, SELFPAY ==
[2021-06-25] VITALS (12 sets, daily range): BP systolic 104–130; BP diastolic 56–86; PULSE 84–126; RESP 14–26; TEMP 36.6–38.5; O2SAT 98–100; BMI 26.2
--- NOTE | 2021-06-25 18:04 | EKG12_ITS ---
Test Reason : DYSRHYTHMIA Blood Pressure : / mmHG Vent. Rate : 119 BPM Atrial Rate : 119 BPM P-R Int : 120 ms QRS Dur : 078 ms QT Int : 308 ms P-R-T Axes : 023 003 048 degrees QTc Int : 433 ms Sinus tachycardia Otherwise normal ECG Confirmed by KAITLIN LEIJA, FROYLAN ([id number]), material expeditor KRYSTYNA ANDERSON ([id number]) on 07/01/2021 6:36:32 AM Referred By: Keyon Chapin Confirmed By:FROYLAN MADRIGAL MD
--- NOTE | 2021-06-25 18:04 | RAD_ITS ---
STUDY: X-RAY CHEST REASON FOR EXAM: Female, 31 years old. sob TECHNIQUE: Frontal view COMPARISON: 05/20/2021. FINDINGS: A tracheostomy tube is noted. The lungs are not fully expanded. There is left basilar atelectasis. Normal size heart. Normal mediastinum and glenn. Normal visualized pulmonary arteries. Normal visualized aortic arch and descending thoracic aorta. Scoliosis of the thoracic spine with vertebral angelo. Normal visualized ribs, clavicles, and shoulders. There is no demonstrated abnormality of the visualized soft tissue structures of the upper abdomen. RAD/Chest 1 View (Portable) IMPRESSION: Left basilar atelectasis. Electronically Signed: Carter Hollingsworth DO at 19:55 EDT Tel [phone], Service support ,
--- NOTE | 2021-06-25 18:06 | CT_ITS ---
STUDY: CT ABDOMEN AND PELVIS WITHOUT CONTRAST REASON FOR EXAM: Female, 31 years old. Fever, UTI RADIATION DOSAGE (If Supplied By Facility): CTDIvol = ( 8.28 ) mGy, DLP = ( 382.71 ) mGycm TECHNIQUE: Transaxial images were obtained from the dome of the diaphragm to the symphysis pubis without oral contrast, and without intravenous contrast. Sagittal and coronal images were reconstructed. Individualized dose optimization techniques were used for this CT. COMPARISON: 05/20/2021 FINDINGS: The visualized lung bases are unremarkable. The visualized portions of the heart are within normal limits. Normal liver. Normal gallbladder and extrahepatic biliary system. Normal spleen. Normal pancreas. Normal bilateral adrenal glands. Up to 6 mm calculi in the right kidney. There is a right ureteral stent. Normal left kidney. There is a percutaneous gastrostomy tube in the stomach. Normal small intestine. Fecal retention in the colon. The appendix is visualized and appears normal. Normal abdominal aorta. Normal inferior vena cava. Normal retroperitoneum. Normal urinary bladder. Normal abdominal wall. Degenerative vertebral changes with significant scoliosis. Intervertebral angelo is noted. CT/Abdomen/Pelvis without Cont IMPRESSION: Nonobstructive right renal calculi. Right ureteral stent in place. Colonic fecal retention. Electronically Signed: Carter Hollingsworth DO at 19:34 EDT Tel [phone], Service support ,
--- NOTE | 2021-06-25 18:07 | EX.ED.DYSGE1 ---
HPI History of Present Illness Chief Complaint: Complaint Detail of Chief Complaint: Fever Informant: parent Onset/Context/Timing Onset: Days Narrative Narrative: Patient brought in by EMS secondary to continued fevers. Patient has a history of cerebral palsy and tracheostomy. She is on a home vent. Mother states she start developing fevers on Wednesday, 2 days ago. She was diagnosed with a UTI and started on Cipro. Mother states that despite 2 and half days of antibiotics have not seen any improvement in her symptoms. They also note some chest congestion. Patient was hospitalized approximately a month ago with multiple kidney stones. [facility] Medical History Allergic rhinitis due to other allergen Amenorrhea Bronchiectasis without acute exacerbation Bronchitis C. 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 Streptococcus pneumoniae Thrush Urinary tract infection due to extended-spectrum beta lactamase (ESBL) producing Escherichia coli Visual disturbance Vitamin D deficiency Home Medications baclofen 30 mg GT TID 09/02/13 [History Last Taken 05/20/21] oxcarbazepine 300 mg/5 mL (60 mg/mL) oral suspension 8 ml GT BID ml 08/28/17 [History Last Taken 05/20/21] insulin aspart U-100 100 unit/mL (3 mL) subcutaneous pen 8 units SQ 4X/DAY 09/20/20 [History Last Taken 05/20/21] ferrous sulfate 60 mg FEEDING TUBE DAILY 02/28/21 [History Last Taken 05/20/21] fluticasone propionate 2 puff INHALATION BID 02/28/21 [History Last Taken 05/20/21] levalbuterol HCl 1.25 mg/3 mL solution for nebulization 1.25 mg INHALATION BID #90 ml 03/05/21 [Rx Last Taken 05/20/21] cholecalciferol (vitamin D3) 50 mcg FEEDING TUBE DAILY 05/20/21 [History Last Taken Unknown] diazepam 5 mg FEEDING TUBE DAILY@1400 05/20/21 [History Last Taken 05/20/21] diazepam 7 mg FEEDING TUBE BID 05/20/21 [History Last Taken 05/20/21] methenamine hippurate [Hiprex] 1 g FEEDING TUBE BID 05/20/21 [History Last Taken 05/20/21] acidophilus-pectin, citrus 1 tab G-TUBE BID #0 tab 05/24/21 [Rx Last Taken Unknown] ertapenem 1 g IM Q24H #21 ea 05/24/21 [Rx Last Taken Unknown] psyllium husk (aspartame) [Daily Fiber (psyllium-aspart)] 1 packet G-TUBE DAILY PRN PRN #0 ea 05/24/21 [Rx Last Taken Unknown] sennosides-docusate sodium [Stool Softener-Stimulant Laxat] 2 tab G-TUBE BID PRN #0 tab 05/24/21 [Rx Last Taken Unknown] diphenhydramine HCl [Benadryl Allergy] 12.5 mg PO PRN PRN 06/25/21 [History Last Taken Unknown] levalbuterol HCl [Xopenex] 1.25 mg INHALATION Q20M PRN 06/25/21 [History Last Taken Unknown] multivit-folic acid-herbal 275 [Wellesse Multi Vitamin Plus] 10 ml PO 06/25/21 [History Last Taken Unknown] Allergy/AdvReac Type Severity Reaction Status Date / Time linezolid Allergy Severe Other - Verified 06/25/21 17:45 seizure & coma vancomycin Allergy Severe Other - Verified 06/25/21 17:45 kidney failure tobramycin Allergy Intermediate Other - Verified 06/25/21 17:45 turned beet red nafcillin Allergy Mild Rash Verified 06/25/21 17:45 benzoin Allergy Unknown Rash Verified 06/25/21 17:45 milk Allergy Unknown Other Verified 06/25/21 17:45 soy Allergy Unknown Other Verified 06/25/21 17:45 polyethylene glycol 3350 AdvReac Unknown Hives Verified 06/25/21 17:45 [From Miralax] Family History Grandmother Cancer maternal Other Adopted Surgical History derotatox ostomies eyes straightened Gastrostomy tube in place H/O spinal fusion Presence of intrathecal baclofen pump rods to back Status post Jorje fundoplication surgery on gland under tongue tendonatomies Tracheostomy status Social History household members: other details: Mother and is vent dependent housing: house Smoking Status: Never smoker second hand exposure: No alcohol intake: never substance use type: does not use ROS ROS ED ROS Narrative Patient nonverbal at baseline. Review of Systems ROS Unobtainable: due to mental condition Constitutional Constitutional ED: Reports fever(s); Denies chills Eyes Eyes: Denies change in vision Respiratory/Chest Respiratory/Chest: Reports other Details: Increased respiratory rate per family Genitourinary Genitourinary ED: Reports other Details: Cath performed 3 times a day EXAM Physical Exam Const Vital Signs: 06/25/21 17:46 06/25/21 17:51 06/25/21 18:31 Temperature 101.3 F H 101.3 F H Temperature Source Oral Oral Pulse Rate 126 H 124 H Respiratory Rate 24 H 20 H Respiratory Effort Normal Respiratory Depth Normal Respiratory Pattern Normal Blood Pressure 125/86 H 125/86 H Blood Pressure Mean 99 99 Pulse Ox 100 100 Oxygen Delivery Method Mechanical Ventilator Trach Collar Trach Collar Oxygen Flow Rate (L/min) 3 06/25/21 18:45 06/25/21 19:24 Temperature 100.6 F H Temperature Source Oral Pulse Rate 115 H Respiratory Rate 26 H Respiratory Effort Respiratory Depth Respiratory Pattern Blood Pressure 130/77 H Blood Pressure Mean 94 Pulse Ox 100 100 Oxygen Delivery Method Mechanical Ventilator Oxygen Flow Rate (L/min) Positive contractures General Appearance ED: contractures HEENT Reports moist mucous membranes Eyes EOMs intact bilaterally Neck supple Neck Narrative: Tracheostomy site clean. Resp Resp Narrative: Slightly tachypneic. Lungs grossly clear. Cardio Rate: tachycardic GI non-tender Auscultation: hypoactive bowel sounds Palpation: soft Neuro Neuro Narrative: Lying with eyes open. Contractures noted. MDM MDM MDM Narrative Medical decision making narrative: Sepsis work-up was undertaken. Patient given IV fluids. Tylenol given through G-tube for fever. Lab Data Attestation: I reviewed the patient's lab results. Labs: Laboratory Results - last 24 hr 06/25/21 06/25/21 06/25/21 18:20 18:20 18:20 WBC 11.8 H RBC 3.61 L Hgb 11.1 L Hct 32.6 L MCV 90.3 MCH 30.7 MCHC 34.0 RDW Std Deviation 39.1 RDW Coeff of Anne 11.9 Plt Count 404 MPV 9.8 Immature Gran % (Auto) 1.700 H Neut % (Auto) 76.1 H Lymph % (Auto) 10.7 L [place] % (Auto) 10.2 H Eos % (Auto) 0.9 Baso % (Auto) 0.4 Absolute Neuts (auto) 9.0 H Absolute Lymphs (auto) 1.26 Nucleated RBC % 0 PT Cancelled INR Cancelled APTT Cancelled Sodium 136 Potassium 3.6 Chloride 97 L Carbon Dioxide 31.0 Anion Gap 8 BUN 5 L Creatinine 0.46 L Estim Creat Clear Calc 138.31 Est GFR (MDRD) Af Amer 205 Est GFR (MDRD) Non-Af 169 BUN/Creatinine Ratio 10.9 Glucose 158 H Lactic Acid Calcium 10.0 Total Bilirubin 0.10 L AST 20 ALT 34 Alkaline Phosphatase 138 H Total Protein 8.9 H Albumin 3.2 Globulin 5.7 H Albumin/Globulin Ratio 0.6 L Urine Color Urine Clarity Urine pH Ur Specific [place] Urine Protein Urine Glucose (UA) Urine Ketones Urine Occult Blood Urine Nitrite Urine Bilirubin Urine Urobilinogen Ur Leukocyte Esterase Urine RBC Urine WBC Ur Squamous Epith Cells Urine Bacteria Urine Mucus Urine Yeast 06/25/21 06/25/21 06/25/21 18:20 18:40 19:00 WBC RBC Hgb Hct MCV MCH MCHC RDW Std Deviation RDW Coeff of Anne Plt Count MPV Immature Gran % (Auto) Neut % (Auto) Lymph % (Auto) [place] % (Auto) Eos % (Auto) Baso % (Auto) Absolute Neuts (auto) Absolute Lymphs (auto) Nucleated RBC % PT 13.2 INR 1.1 APTT 30.3 Sodium Potassium Chloride Carbon Dioxide Anion Gap BUN Creatinine Estim Creat Clear Calc Est GFR (MDRD) Af Amer Est GFR (MDRD) Non-Af BUN/Creatinine Ratio Glucose Lactic Acid 2.5 H* Calcium Total Bilirubin AST ALT Alkaline Phosphatase Total Protein Albumin Globulin Albumin/Globulin Ratio Urine Color Yellow Urine Clarity Sl. Cloudy Urine pH 8.0 Ur Specific [place] 1.015 Urine Protein 30 H Urine Glucose (UA) Normal Urine Ketones Negative Urine Occult Blood 50 H Urine Nitrite Negative Urine Bilirubin Negative Urine Urobilinogen Normal Ur Leukocyte Esterase 500 H Urine RBC 0-5 SEEN Urine WBC 10-25 SEEN Ur Squamous Epith Cells 0 SEEN Urine Bacteria RARE Urine Mucus 0 SEEN Urine Yeast RARE Radiography Chest X-Ray - ED: 1 View, Read by ED Physician and Chronic Changes Diagnostic Testing: Clinical Impression(s) from Imaging Studies Chest X-Ray 06/25/21 18:04 IMPRESSION: Left basilar atelectasis. Electronically Signed: Carter DO Darrick at 19:55 EDT Tel [phone], Service support , Abdomen/Pelvis CT 06/25/21 18:06 IMPRESSION: Nonobstructive right renal calculi. Right ureteral stent in place. Colonic fecal retention. Electronically Signed: Carter Hollingsworth DO at 19:34 EDT Tel [phone], Service support , EKG Initial EKG: Attestation: I personally reviewed and interpreted this EKG as follows: Interpretation: Sinus Tachycardia (Sinus tach at 119. No acute ischemia.) Treatment and Re-Evaluation Comments:: Repeat evaluation patient heart rate improved to around 110. Temperature is improved to 100.6. Patient has been given IV fluid bolus secondary to elevated lactate. She is given dose of IV Rocephin for urine. Covid test is negative. CT scan of the abdomen and pelvis show stones in the right kidney and a ureteral stent in place. Patient be discussed with hospitalist for admission as she has failed outpatient therapy. Discharge Plan Triage Chief Complaint: Complaint ED Provider: Viviana Madden Dx/Rx/DC Orders Clinical Impression: Sepsis, UTI (urinary tract infection) Prescriptions: No Action oxcarbazepine [Trileptal] 300 mg/5 mL (60 mg/mL) suspension 8 ml GT BID RF: 0 insulin aspart U-100 100 unit/mL (3 mL) insulin pen 8 units SQ 4X/DAY RF: 0 baclofen 20 MG tablet 30 mg GT TID RF: 0 fluticasone propionate 44 mcg/actuation Hfa Aerosol Inhaler 2 puff INHALATION BID RF: 0 ferrous sulfate 15 mg iron (75 mg)/mL Syringe 60 mg feeding tube DAILY RF: 0 diazepam 5 mg/5 mL (1 mg/mL) Solution 7 mg feeding tube BID RF: 0 diazepam 5 mg/5 mL (1 mg/mL) Solution 5 mg feeding tube DAILY@1400 RF: 0 methenamine hippurate [Hiprex] 1 gram Tablet 1 g feeding tube BID RF: 0 cholecalciferol (vitamin D3) 10 mcg/mL (400 unit/mL) Drops 50 mcg feeding tube DAILY RF: 0 ertapenem 1 gram recon soln 1 g IM Q24H Qty: 21 RF: 0 sennosides-docusate sodium [Stool Softener-Stimulant Laxat] 8.6-50 mg Tablet 2 tab G-tube BID PRN (Reason: Constipation) Qty: 0 RF: 0 Daily Fiber (psyllium-aspart) 3 gram Powder In Packet 1 packet G-tube DAILY PRN PRN (Reason: Constipation) Qty: 0 RF: 0 acidophilus-pectin, citrus 25 million cell -100 mg Tablet 1 tab G-tube BID Qty: 0 RF: 0 diphenhydramine HCl [Benadryl Allergy] 12.5 mg/5 mL Liquid 12.5 mg PO PRN PRN (Reason: Allergic Symptoms) RF: 0 levalbuterol HCl [Xopenex] 1.25 mg/3 mL Solution For Nebulization 1.25 mg INHALATION Q20M PRN (Reason: Shortness Of Breath) RF: 0 [place] Multi Vitamin Plus 400 mcg-200 mg/30 mL Liquid 10 ml PO RF: 0 levalbuterol HCl 1.25 mg/3 mL solution for nebulization 1.25 mg INHALATION BID Qty: 90 RF: 6 Primary Care Provider: Sandra Bermudez Referrals: Sandra Bermudez DO [Primary Care Provider] - Disposition Disposition: Acute Care Hospital [facility]
[2021-06-25 18:33] LABS: Absolute Lymphocyte Count 1.26 X10^3/uL (0.83-4.51); Basophil# 0.05 X10^3/uL; Basophil% 0.4 % (0-1); Eosinophil# 0.11 X10^3/uL; Eosinophils% 0.9 % (0-5); Hematocrit 32.6 % (37-47); Hemoglobin 11.1 g/dL (12.0-15.0); Lymphocyte # 1.26 X10^3/ul (0.83-4.51); Lymphocyte % 10.7 % (19-41); Mean Corpuscular Hgb 30.7 pg (27.0-32.0); Mean Corpuscular Volume 90.3 fL (81-99); Mean Platelet Vol. 9.8 fl (6.2-12.0); Monocyte% 10.2 % (0-10); NRBC Flagged by Analyzer 0 % (0-5); Neutrophil # 8.96 X10^3/uL (2.7-7.7); Neutrophil % 76.1 % (47-70); Platelet Count 404 K/mm3 (150-450); RBC Distribution Width CV 11.9 % (11.6-14.6); RBC Distribution Width SD 39.1 fl (35.1-43.9); Red Blood Count 3.61 M/mm3 (4.2-5.4); White Blood Count 11.8 K/mm3 (4.4-11.0)
[2021-06-25] MEDS: Acetaminophen 650 MG/20 ML UDC GT (18:42)
[2021-06-25] MEDS: 0.9% Normal Saline 1,000 ML 150 ML IV (18:46)
[2021-06-25 18:47] LABS: ALB/GLOB Ratio 0.6 RATIO (0.9-2.4); AST(SGOT) 20 U/L (15-37); Alanine Aminotransfer ALT/SGPT 34 U/L (13-56); Albumin, Serum 3.2 g/dL (3.2-5.0); Alkaline Phosphatase 138 U/L (45-117); Anion Gap 8 (5-15); BUN 5 mg/dL (7-18); BUN/Creat Ratio 10.9 RATIO (10-20); Chloride 97 mmol/L (98-107); Creatinine, Serum 0.46 mg/dL (0.55-1.02); EST Glomerular Filtration Rate 169 mL/min (>60); Est Glom Filt Rate - Afr Amer 205 mL/min (>60); Estimated Creatinine Clearance 138.31 ml/min; Globulin 5.7 g/dL (2.2-4.2); Glucose 158 mg/dL (74-106); Potassium 3.6 mmol/L (3.5-5.1); Protein, Total 8.9 g/dL (6.4-8.2); Sodium Level 136 mmol/L (136-145)
[2021-06-25 18:57] LABS: Lactic Acid 2.5 mmol/L (0.4-1.9)
[2021-06-25 19:06] LABS: International Normalized Ratio 1.1; Prothrombin Time (Protime)PT. 13.2 SECONDS (11.7-14.9)
[2021-06-25 19:06] LABS: Mucous, Urine 0 SEEN /hpf (<or=2+); Squamous Epithelial Cells - UA 0 SEEN /hpf (5-10)
[2021-06-25 19:07] LABS: Partial Thromboplast Time 30.3 Seconds (24.1-36.2)
[2021-06-25 19:49] LABS: Color, Urine Yellow (Yellow); Glucose, Dipstick Normal (Normal); Ketone-Dipstick Negative (Negative); Leukocyte Esterase-Dipstick 500 /ul (Negative); Nitrite-Dipstick Negative (Negative); Occult Blood-Urine 50 /ul (Negative); Protein-Dipstick 30 mg/dl (Negative); Specific Gravity, Urine 1.015 (1.002-1.030); Urine Bilirubin Dipstick Negative (Negative); Urine Clarity Sl. Cloudy (Clear); Urine Urobilinogen Normal (Normal)
[2021-06-25 20:00] LABS: White Blood Cells 10-25 SEEN /hpf (0-5)
[2021-06-25 20:01] LABS: Bacteria RARE /hpf (None Seen); Red Blood Cells-Urine 0-5 SEEN /hpf (0-5); Yeast-Urine RARE /hpf (None Seen)
[2021-06-25] MEDS: 0.9% Normal Saline 1,000 ML 999 ML IV (20:12)
[2021-06-25] MEDS: Ceftriaxone 1 GM/50 ML BAG IV (20:12)
--- NOTE | 2021-06-25 20:49 | HP.PCM.HOS_ITS ---
HPI - General General Date of Admission: 06/25/21 HPI Narrative MANDY RIVERA, is a 31 F with a significant history of cerebral palsy; tracheostomy and G-tube who presents to the emergency department with a 3-day history of a persistent fever. Patient's PCP started patient on ciprofloxacin 2 days ago because of UTI. Her mother reports that the urine culture is not back yet. Her mother reports that recently patient was started on methenamine and that is giving patient constipation. Reportedly patient has been getting Silace syrup (bowel stimulant) once a day for constipation. Reportedly about a month ago patient had many kidney stones removed. Patient sees Dr. Anaya and was instructed to be straight cathed 3 times a day. In addition patient is incontinence of urine by herself. Her mother reports current thrush and a history of thrush with antibiotics. Her mother reports that about a month ago patient was hospitalized for UTI and she was discharged on Ertapenem which her mother was giving to her via a mid line/PICC line. Patient does not have chills. Patient is congested with increase secretions. [facility] Medical History Allergic rhinitis due to other allergen Amenorrhea Bronchiectasis without acute exacerbation Bronchitis C. 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 Streptococcus pneumoniae Thrush Urinary tract infection due to extended-spectrum beta lactamase (ESBL) producing Escherichia coli Visual disturbance Vitamin D deficiency Home Medications baclofen 30 mg GT TID 09/02/13 [History Last Taken 06/25/211999] oxcarbazepine 300 mg/5 mL (60 mg/mL) oral suspension 8 ml GT BID ml 08/28/17 [History Last Taken 06/25/211999] insulin aspart U-100 100 unit/mL (3 mL) subcutaneous pen 8 units SQ 4X/DAY 09/20/20 [History Last Taken 06/25/21] ferrous sulfate 60 mg FEEDING TUBE DAILY 02/28/21 [History Last Taken 05/20/21] fluticasone propionate 2 puff INHALATION BID 02/28/21 [History Last Taken 05/20/21] levalbuterol HCl 1.25 mg/3 mL solution for nebulization 1.25 mg INHALATION BID #90 ml 03/05/21 [Rx Last Taken 06/25/21] cholecalciferol (vitamin D3) 50 mcg FEEDING TUBE DAILY 05/20/21 [History Last Taken 06/25/21 1000] diazepam 5 mg FEEDING TUBE DAILY@1400 05/20/21 [History Last Taken 06/25/21 1400] diazepam 7 mg FEEDING TUBE BID 05/20/21 [History Last Taken 06/25/21 2000] methenamine hippurate [Hiprex] 1 g FEEDING TUBE BID 05/20/21 [History Last Taken 05/20/21] psyllium husk (aspartame) [Daily Fiber (psyllium-aspart)] 1 packet G-TUBE DAILY PRN PRN #0 ea 05/24/21 [Rx Last Taken 06/25/21] acidophilus-pectin, citrus 1 tab G-TUBE BID 06/25/21 [History Last Taken 06/25/21 1000] cetirizine [Zyrtec] 10 mg PO DAILY PRN 06/25/21 [History Last Taken Unknown] levalbuterol HCl [Xopenex] 1.25 mg INHALATION Q20M PRN 06/25/21 [History Last Taken 06/25/21] multivit-folic acid-herbal 275 [[place] Multi Vitamin Plus] 10 ml DAILY 06/25/21 [History Last Taken 06/25/21] sennosides-docusate sodium [Stool Softener-Stimulant Laxat] 2 tab G-TUBE DAILY 06/25/21 [History Last Taken Unknown] vit c-ascorbate Ca-ascorb sod [Vitamin C] 10 ml PO DAILY 06/25/21 [History Last Taken 06/25/21 1000] Allergy/AdvReac Type Severity Reaction Status Date / Time linezolid Allergy Severe Other - Verified 06/25/21 17:45 seizure & coma vancomycin Allergy Severe Other - Verified 06/25/21 17:45 kidney failure tobramycin Allergy Intermediate Other - Verified 06/25/21 17:45 turned beet red nafcillin Allergy Mild Rash Verified 06/25/21 17:45 benzoin Allergy Unknown Rash Verified 06/25/21 17:45 milk Allergy Unknown Other Verified 06/25/21 17:45 soy Allergy Unknown Other Verified 06/25/21 17:45 polyethylene glycol 3350 AdvReac Unknown Hives Verified 06/25/21 17:45 [From Miralax] Family History Grandmother Cancer maternal Other Adopted Surgical History derotatox ostomies eyes straightened Gastrostomy tube in place H/O spinal fusion Presence of intrathecal baclofen pump rods to back Status post Jorje fundoplication surgery on gland under tongue tendonatomies Tracheostomy status Social History household members: other details: Mother and is vent dependent housing: house Smoking Status: Never smoker second hand exposure: No alcohol intake: never substance use type: does not use ROS ROS Narrative Pertinent positives and pertinent negatives as noted in HPI. All other systems were reviewed and are negative. Vital Signs Vital Signs Vital Signs: 06/25/21 17:46 06/25/21 17:51 06/25/21 18:31 Temperature 101.3 F H 101.3 F H Temperature Source Oral Oral Pulse Rate 126 H 124 H Respiratory Rate 24 H 20 H Respiratory Effort Normal Respiratory Depth Normal Respiratory Pattern Normal Blood Pressure 125/86 H 125/86 H Blood Pressure Mean 99 99 Pulse Ox 100 100 Oxygen Delivery Method Mechanical Ventilator Trach Collar Trach Collar Oxygen Flow Rate (L/min) 3 06/25/21 18:45 06/25/21 19:24 06/25/21 20:35 Temperature 100.6 F H 100.6 F H Temperature Source Oral Oral Pulse Rate 115 H 118 H Respiratory Rate 26 H 20 H Respiratory Effort Respiratory Depth Respiratory Pattern Blood Pressure 130/77 H 124/68 H Blood Pressure Mean 94 86 Pulse Ox 100 100 100 Oxygen Delivery Method Mechanical Ventilator T-piece Oxygen Flow Rate (L/min) 3 Weight Weight: 49.442 kg Body Mass Index (BMI) 26.2 Physical Exam Narrative Physical exam: General: Paralyzed patient on G-tube and trach. Head: Normocephalic, atraumatic, no tenderness Eyes: PERRLA ENT, no trauma, moist mucous membranes, no rhinorrhea Neck: Nontender, full range of motion, no spinal tenderness, deformities, step- off CVS: Tachycardia. S1-S2 present. No murmur, gallop or rub. Respiratory : Tachypnea; rhonchi. chest wall nontender, no wheezing Abdomen: Soft, nontender, nondistended, normal bowel sounds, no masses. G-tube present : Deferred Back: Nontender, no CVA tenderness, no midline spinal tenderness, deformities, step-offs Extremities: Paralyzed extremities. Skin: Normal color, no trauma, abrasions Neuro: Alert. Non talkative. Psychiatry: Normal mood. Normal affect. Not depressed. Not anxious. Results Lab / Micro Data Result Diagrams: 06/25/21 18:20 06/25/21 18:20 Labs: Laboratory Results - last 24 hr 06/25/21 18:20: WBC 11.8 H, RBC 3.61 L, Hgb 11.1 L, Hct 32.6 L, MCV 90.3, MCH 30.7, MCHC 34.0, RDW Std Deviation 39.1, RDW Coeff of Anne 11.9, Plt Count 404, MPV 9.8, Immature Gran % (Auto) 1.700 H, Neut % (Auto) 76.1 H, Lymph % (Auto) 10.7 L, [place] % (Auto) 10.2 H, Eos % (Auto) 0.9, Baso % (Auto) 0.4, Absolute Neuts (auto) 9.0 H, Absolute Lymphs (auto) 1.26, Nucleated RBC % 0 06/25/21 18:20: PT Cancelled, INR Cancelled, APTT Cancelled 06/25/21 18:20: Sodium 136, Potassium 3.6, Chloride 97 L, Carbon Dioxide 31.0, Anion Gap 8, BUN 5 L, Creatinine 0.46 L, Estim Creat Clear Calc 138.31, Est GFR (MDRD) Af Amer 205, Est GFR (MDRD) Non-Af 169, BUN/Creatinine Ratio 10.9, Glucose 158 H, Calcium 10.0, Total Bilirubin 0.10 L, AST 20, ALT 34, Alkaline Phosphatase 138 H, Total Protein 8.9 H, Albumin 3.2, Globulin 5.7 H, Albumin/Globulin Ratio 0.6 L 06/25/21 18:20: Lactic Acid 2.5 H* 06/25/21 18:40: PT 13.2, INR 1.1, APTT 30.3 06/25/21 19:00: Urine Color Yellow, Urine Clarity Sl. Cloudy, Urine pH 8.0, Ur Specific [place] 1.015, Urine Protein 30 H, Urine Glucose (UA) Normal, Urine Ketones Negative, Urine Occult Blood 50 H, Urine Nitrite Negative, Urine Bilirubin Negative, Urine Urobilinogen Normal, Ur Leukocyte Esterase 500 H, Urine RBC 0-5 SEEN, Urine WBC 10-25 SEEN, Ur Squamous Epith Cells 0 SEEN, Urine Bacteria RARE, Urine Mucus 0 SEEN, Urine Yeast RARE Micro: Microbiology 06/25/21 18:20 Nasal Secretion SARS-CoV-2 Antigen (Rapid) - Final Radiology Impression Chest X-Ray 06/25/21 18:04 IMPRESSION: Left basilar atelectasis. Electronically Signed: Carter Hollingsworth DO at 19:55 EDT Tel [phone], Service support , Abdomen/Pelvis CT 06/25/21 18:06 IMPRESSION: Nonobstructive right renal calculi. Right ureteral stent in place. Colonic fecal retention. Electronically Signed: Carter Hollingsworth DO at 19:34 EDT Tel [phone], Service support , Assessment & Plan Assessment/Plan (1) Sepsis: QUALIFIERS: Sepsis acute organ dysfunction status: with acute organ dysfunction Sepsis type: sepsis due to unspecified organism Severe sepsis acute organ dysfunction type: unspecified Severe sepsis shock status: without septic shock Qualified Code(s): A41.9 - Sepsis, unspecified organism; R65.20 - Severe sepsis without septic shock (2) UTI (urinary tract infection): QUALIFIERS: Hematuria presence: without hematuria Urinary tract infection type: site unspecified Qualified Code(s): N39.0 - Urinary tract infection, site not specified PLAN: Sepsis secondary UTI SIRS criteria: Heart rate more than 90; respiratory rate more than 20; T-max of 101.3 Organ damage: Lactic acid of more than 2. qSOFA: at least 1. At baseline patient is less interactive and talkative. Urinalysis is abnormal. With rare urine bacteria but of note patient was on outpatient antibiotics. With history of C. difficile in and general condition start will patient on vancomycin prophylaxis Mother requested the patient be given fluconazole for thrush as has been the practice previously when patient is placed on antibiotics. Fluconazole ordered. Review of urine culture obtained on 05/20/2021 showed E. coli which was resistant to ciprofloxacin; penicillins and cephalosporins. The E. coli was sensitive to Zosyn and carbapenem. Ertapenem ordered. Hold methenamine Gentle IV hydration. Admit to intensive care unit and consult work adjustment instructor. Trend CBC and BMP Fecal retention Abdomen and pelvis CT with fecal retention Senokot-s 2 tabs twice daily ordered. Hold as needed fiber Diabetes mellitus Patient with mild hyperglycemia on presentation Adjust home scheduled short acting insulin. Accu-Chek every 6 hours. Cerebral palsy Diazepam continued Trileptal continued Tube feeding Continue home tube feeding with the same formula and Pattern DVT prophylaxis: Subcutaneous Lovenox ordered. Charges/Coding Visit Charges Inpatient E&M: 30583 Init Hosp L3
[2021-06-25 22:27] LABS: Reflex Lactate? Y
[2021-06-25] MEDS: 0.9% Normal Saline 1,000 ML 75 ML IV (22:30)
[2021-06-25 23:26] LABS: Lactic Acid 2.6 mmol/L (0.4-1.9)
[2021-06-26] VITALS (26 sets, daily range): BP systolic 90–130; BP diastolic 54–93; PULSE 56–119; RESP 14–28; TEMP 36.1–36.9; O2SAT 97–100
[2021-06-26] MEDS: Fluconazole 100 MG Tablet 200 MG PO (00:29)
[2021-06-26] MEDS: Vancomycin 125 MG/5 ML Susp PO.SYRINGE GT ×5 (00:32→23:06)
[2021-06-26 05:48] LABS: Absolute Lymphocyte Count 1.61 X10^3/uL (0.83-4.51); Absolute Neutrophil Count 6.3 X10^3/uL (2.0-7.7); Basophil# 0.04 X10^3/uL; Basophil% 0.4 % (0-1); Eosinophil# 0.14 X10^3/uL; Eosinophils% 1.5 % (0-5); Hematocrit 28.1 % (37-47); Hemoglobin 9.4 g/dL (12.0-15.0); Lymphocyte # 1.61 X10^3/ul (0.83-4.51); Lymphocyte % 17.3 % (19-41); Mean Corp Hgb Conc 33.5 g/dL (32-36); Mean Corpuscular Volume 92.7 fL (81-99); Mean Platelet Vol. 9.7 fl (6.2-12.0); Monocyte# 1.08 X10^3/uL; Monocyte% 11.6 % (0-10); NRBC Flagged by Analyzer 0 % (0-5); Neutrophil # 6.29 X10^3/uL (2.7-7.7); Neutrophil % 67.7 % (47-70); Platelet Count 319 K/mm3 (150-450); RBC Distribution Width CV 12.1 % (11.6-14.6); RBC Distribution Width SD 40.9 fl (35.1-43.9); Red Blood Count 3.03 M/mm3 (4.2-5.4); White Blood Count 9.3 K/mm3 (4.4-11.0)
[2021-06-26] MEDS: Baclofen 10 MG Tablet 30 MG GT ×3 (05:51→20:33)
[2021-06-26 06:10] LABS: Anion Gap 7 (5-15); BUN 8 mg/dL (7-18); BUN/Creat Ratio 22.7 RATIO (10-20); Calcium,Total 9.4 mg/dL (8.5-10.1); Chloride 102 mmol/L (98-107); Creatinine, Serum 0.35 mg/dL (0.55-1.02); EST Glomerular Filtration Rate 228 mL/min (>60); Est Glom Filt Rate - Afr Amer 276 mL/min (>60); Estimated Creatinine Clearance 168.02 ml/min; Glucose 126 mg/dL (74-106); Potassium 3.8 mmol/L (3.5-5.1); Sodium Level 139 mmol/L (136-145)
--- NOTE | 2021-06-26 06:10 | NURSING ---
pt straight cath for 200cc of dark yellow urine. Pt mouth suction by dad
[2021-06-26 06:26] LABS: Lactic Acid 1.4 mmol/L (0.4-1.9)
[2021-06-26] MEDS: Albuterol 2.5 MG/3 ML VIAL.NEB. INHALATION ×3 (06:50→19:12)
[2021-06-26] MEDS: Budesonide Respules 0.5 MG/2 ML AMPUL.NEB. INHALATION ×2 (06:50→19:12)
--- NOTE | 2021-06-26 07:35 | CPS ---
0650 Pt on home ventilator and erickson well. Father at bedside. Aerosol rx given in-line without incident.
--- NOTE | 2021-06-26 07:52 | PCM.PN.HOSP ---
Subjective Subjective Follow-up severe sepsis secondary to UTI: Patient was seen and examined. Her father is at the bedside. Patient's vitals are stable. T-max is 101.3F father states patient is much improved. Her oxygen requirement on the ventilator has not changed Objective Data Objective Data Vital Signs: Vital Signs Temp Pulse Resp BP Pulse Ox 97.9 F 76 15 110/66 100 06/26/21 04:00 06/26/21 07:00 06/26/21 07:00 06/26/21 07:00 06/26/21 07:00 Oxygen Flow Rate (L/min) 4 Oxygen Delivery Method Mechanical Ventilator Weight: 45.7 kg Body Mass Index (BMI) 26.2 Intake & Output: Intake and Output for Last 24 Hours 06/24/21 06/25/21 06/26/21 23:59 23:59 23:59 Intake Total 1785 / 1785 120 / 120 Output Total 200 / 200 Balance 1785 / 1785 -80 / -80 Lab / Micro Data Result Diagrams: 06/26/21 05:25 06/26/21 05:25 Labs: Laboratory Results - last 24 hr 06/25/21 18:20: WBC 11.8 H, RBC 3.61 L, Hgb 11.1 L, Hct 32.6 L, MCV 90.3, MCH 30.7, MCHC 34.0, RDW Std Deviation 39.1, RDW Coeff of Anne 11.9, Plt Count 404, MPV 9.8, Immature Gran % (Auto) 1.700 H, Neut % (Auto) 76.1 H, Lymph % (Auto) 10.7 L, [place] % (Auto) 10.2 H, Eos % (Auto) 0.9, Baso % (Auto) 0.4, Absolute Neuts (auto) 9.0 H, Absolute Lymphs (auto) 1.26, Nucleated RBC % 0 06/25/21 18:20: PT Cancelled, INR Cancelled, APTT Cancelled 06/25/21 18:20: Sodium 136, Potassium 3.6, Chloride 97 L, Carbon Dioxide 31.0, Anion Gap 8, BUN 5 L, Creatinine 0.46 L, Estim Creat Clear Calc 138.31, Est GFR (MDRD) Af Amer 205, Est GFR (MDRD) Non-Af 169, BUN/Creatinine Ratio 10.9, Glucose 158 H, Calcium 10.0, Total Bilirubin 0.10 L, AST 20, ALT 34, Alkaline Phosphatase 138 H, Total Protein 8.9 H, Albumin 3.2, Globulin 5.7 H, Albumin/Globulin Ratio 0.6 L 06/25/21 18:20: Lactic Acid 2.5 H* 06/25/21 18:40: PT 13.2, INR 1.1, APTT 30.3 06/25/21 19:00: Urine Color Yellow, Urine Clarity Sl. Cloudy, Urine pH 8.0, Ur Specific [place] 1.015, Urine Protein 30 H, Urine Glucose (UA) Normal, Urine Ketones Negative, Urine Occult Blood 50 H, Urine Nitrite Negative, Urine Bilirubin Negative, Urine Urobilinogen Normal, Ur Leukocyte Esterase 500 H, Urine RBC 0-5 SEEN, Urine WBC 10-25 SEEN, Ur Squamous Epith Cells 0 SEEN, Urine Bacteria RARE, Urine Mucus 0 SEEN, Urine Yeast RARE 06/25/21 22:40: Lactic Acid 2.6 H* 06/26/21 05:25: WBC 9.3, RBC 3.03 L, Hgb 9.4 L, Hct 28.1 L, MCV 92.7, MCH 31.0, MCHC 33.5, RDW Std Deviation 40.9, RDW Coeff of Anne 12.1, Plt Count 319, MPV 9.7, Immature Gran % (Auto) 1.500 H, Neut % (Auto) 67.7, Lymph % (Auto) 17.3 L, [place] % (Auto) 11.6 H, Eos % (Auto) 1.5, Baso % (Auto) 0.4, Absolute Neuts (auto) 6.3, Absolute Lymphs (auto) 1.61, Nucleated RBC % 0 06/26/21 05:25: Sodium 139, Potassium 3.8, Chloride 102, Carbon Dioxide 30.0, Anion Gap 7, BUN 8, Creatinine 0.35 L, Estim Creat Clear Calc 168.02, Est GFR (MDRD) Af Amer 276, Est GFR (MDRD) Non-Af 228, BUN/Creatinine Ratio 22.7 H, Glucose 126 H, Calcium 9.4 06/26/21 05:45: Lactic Acid 1.4 Micro: Microbiology 06/25/21 18:20 Nasal Secretion SARS-CoV-2 Antigen (Rapid) - Final Radiography Diagnostic Testing: Radiology Impression Chest X-Ray 06/25/21 18:04 IMPRESSION: Left basilar atelectasis. Electronically Signed: Carter Hollingsworth DO at 19:55 EDT Tel [phone], Service support , Abdomen/Pelvis CT 06/25/21 18:06 IMPRESSION: Nonobstructive right renal calculi. Right ureteral stent in place. Colonic fecal retention. Electronically Signed: Carter Hollingsworth DO at 19:34 EDT Tel [phone], Service support , Physical Exam Narrative Physical exam: General: Alert, smiles easily, nonverbal/noncommunicative, contractures HEENT: Atraumatic, contracture of the neck Oral: Moist Mucosa Neck: Supple Lungs: Diminished to auscultation Cardiovascular: HS I+II, regular, no murmurs Abdomen: Bowel Sounds Present, Soft, Non Tender Extremities: No edema, atrophy and contracture of both upper and lower extremities Assessment & Plan Assessment/Plan (1) Sepsis: QUALIFIERS: Sepsis type: sepsis due to unspecified organism Sepsis acute organ dysfunction status: with acute organ dysfunction Severe sepsis acute organ dysfunction type: unspecified Severe sepsis shock status: without septic shock Qualified Code(s): A41.9 - Sepsis, unspecified organism; R65.20 - Severe sepsis without septic shock (2) UTI (urinary tract infection): QUALIFIERS: Urinary tract infection type: site unspecified Hematuria presence: without hematuria Qualified Code(s): N39.0 - Urinary tract infection, site not specified (3) Ureterolithiasis: (4) Complicated UTI (urinary tract infection): PLAN: 1. Sepsis secondary Acute complicated UTI, likely secondary to repeated catheterization of the bladder History of ESBL UTI recently. Patient also had cystoscopy, right ureteroscopy with laser lithotripsy and a right ureteral stent placed on 05/23/21. Patient has 3 SIRS criteria with a lactic acid more than 2 Urinalysis is abnormal; patient has been on outpatient antibiotics Continue only on IV ertapenem, follow-up on recent outpatient urine cultures as well as urine cultures from this admission Transfer patient to PCU 2. Chronic respiratory failure status post tracheostomy and PEG, on ventilator Chest x-ray has showed left basilar atelectasis which is not new Chronic settings have not changed, will continue same 3. Acute fecal retention, continue on senokot prn Abdomen and pelvis CT with fecal retention 4. Type II Diabetes mellitus, blood glucose is controlled, will continue on insulin sliding scale 5. Cerebral palsy, complicated with contractures and PEG tube 6. DVT prophylaxis with Lovenox subcu Charges/Coding Visit Charges Inpatient E&M: 26515 Subs Hosp L2
--- NOTE | 2021-06-26 08:17 | CON.PCM.CC_ITS ---
Assessment & Plan Assessment/Plan (1) Chronic respiratory failure: QUALIFIERS: Respiratory failure complication: hypoxia Qualified Code(s): J96.11 - Chronic respiratory failure with hypoxia (2) Sepsis: QUALIFIERS: Sepsis type: sepsis due to unspecified organism Sepsis acute organ dysfunction status: with acute organ dysfunction Severe sepsis acute organ dysfunction type: acute respiratory failure Acute respiratory failure type: with hypoxia Severe sepsis shock status: without septic shock Qualified Code(s): A41.9 - Sepsis, unspecified organism; R65.20 - Severe sepsis without septic shock; J96.01 - Acute respiratory failure with hypoxia PLAN: RECOMMENDATIONS: 1. Continue current antimicrobials for now. 2. Contact PCP for outpatient culture results 3. Continue vent support per home regimen. 4. Continue tube feeds per home regimen. IMPRESSIONS: 1. Complicated UTI I do suspect that the patient's presenting symptoms were likely secondary to recurrent urinary tract source of infection and possible pneumonia. Clinical suspicion is that the left lower lobe atelectasis is chronic and not the etiology. Patient is on ceftriaxone at this time, but has grown ESBL in the past. Patient has a stent in place. We will follow up on culture from PCPs office along with cultures obtained here in the hospital. Once sensitivities are available, patient can likely be discharged home as family has significant support available. 2. Chronic respiratory failure/history of spastic quadriplegia/cerebral palsy/multiple recent antibiotics Continue baseline ventilatory support per home regimen. Patient would be at risk for MDRO organisms. Await response over the next 24 hours, but may need to broaden spectrum HPI Consult Data Date of Consult: 06/26/21 HPI Narrative HPI Narrative: MANDY RIVERA is a 31 F, with past medical history listed below and well-known to me from the outpatient office, who presents to [facility] on 06/25/2021 secondary to continued fevers. Patient does have a history of cerebral palsy and chronic respiratory failure on a home ventilator. History was per the parents and reportedly patient developed fevers 2 days ago. Patient had a UA and culture at PCP office and was initiated on ciprofloxacin. However, after 2-1/2 days of antibiotics patient continued to have fevers, so was brought to the ER for evaluation. Patient reportedly had had some chest congestion, but no plugging or change in oxygen requirements. Patient was hospitalized approximately a month ago with multiple kidney stones. Patient also has issues with seasonal allergies. In the ER, patient was febrile at 101.3 ?F, tachycardic at 126 bpm and tachypneic at 24 breaths/min. Patient was saturating 100% on her baseline ventilator settings. Laboratory work-up showed a leukocytosis of 11.8, hemoglobin of 11.1 and elevated lactate of 2.5. Coagulation studies and chemistries were relatively unremarkable. A UA did show 10-25 WBCs and danita kocyte esterase. A CT of the abdomen showed nonobstructive right renal colliculi. Chest x-ray showed left basilar atelectasis. Given patient's home ventilator and elevated lactate, patient was admitted to the intensive care unit for further evaluation. Patient was given IV fluids and Rocephin. Since being in the intensive care unit, patient has done okay. Patient did continue to have fevers, but has remained hemodynamically stable with no change in ventilator settings. No significant secretions have been reported. Patient's father is at the bedside and was aware of her being started on antibiotics. He states a culture was sent at Dr. Bermudez's office prior to starting antibiotics. Patient does have a history of a stent and has received antibiotics multiple times in the last 3 months. Father reports the patient does typically receive a flu shot every year, but has not been given the COVID-19 vaccination. Per the father, review of systems otherwise negative from a constitutional, HEENT, respiratory, cardiovascular, GI, genitourinary, musculoskeletal, skin, neurologic, psychiatric and hematologic system unless stated above. [facility] Medical History Allergic rhinitis due to other allergen Amenorrhea Bronchiectasis without acute exacerbation Bronchitis C. 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 Streptococcus pneumoniae Thrush Urinary tract infection due to extended-spectrum beta lactamase (ESBL) producing Escherichia coli Visual disturbance Vitamin D deficiency Home Medications baclofen 30 mg GT TID 09/02/13 [History Last Taken 06/25/211999] oxcarbazepine 300 mg/5 mL (60 mg/mL) oral suspension 8 ml GT BID ml 08/28/17 [History Last Taken 06/25/211999] insulin aspart U-100 100 unit/mL (3 mL) subcutaneous pen 8 units SQ 4X/DAY 09/20/20 [History Last Taken 06/25/21] ferrous sulfate 60 mg FEEDING TUBE DAILY 02/28/21 [History Last Taken 05/20/21] fluticasone propionate 2 puff INHALATION BID 02/28/21 [History Last Taken 05/20/21] levalbuterol HCl 1.25 mg/3 mL solution for nebulization 1.25 mg INHALATION BID #90 ml 03/05/21 [Rx Last Taken 06/25/21] cholecalciferol (vitamin D3) 50 mcg FEEDING TUBE DAILY 05/20/21 [History Last Taken 06/25/21 1000] diazepam 5 mg FEEDING TUBE DAILY@1400 05/20/21 [History Last Taken 06/25/21 1400] diazepam 7 mg FEEDING TUBE BID 05/20/21 [History Last Taken 06/25/21 2000] methenamine hippurate [Hiprex] 1 g FEEDING TUBE BID 05/20/21 [History Last Taken 05/20/21] psyllium husk (aspartame) [Daily Fiber (psyllium-aspart)] 1 packet G-TUBE DAILY PRN PRN #0 ea 05/24/21 [Rx Last Taken 06/25/21] acidophilus-pectin, citrus 1 tab G-TUBE BID 06/25/21 [History Last Taken 06/25/21 1000] cetirizine [Zyrtec] 10 mg PO DAILY PRN 06/25/21 [History Last Taken Unknown] levalbuterol HCl [Xopenex] 1.25 mg INHALATION Q20M PRN 06/25/21 [History Last Taken 06/25/21] multivit-folic acid-herbal 275 [[place] Multi Vitamin Plus] 10 ml DAILY 06/25/21 [History Last Taken 06/25/21] sennosides-docusate sodium [Stool Softener-Stimulant Laxat] 2 tab G-TUBE DAILY 06/25/21 [History Last Taken Unknown] vit c-ascorbate Ca-ascorb sod [Vitamin C] 10 ml PO DAILY 06/25/21 [History Last Taken 06/25/21 1000] Allergy/AdvReac Type Severity Reaction Status Date / Time linezolid Allergy Severe Other - Verified 06/25/21 17:45 seizure & coma vancomycin Allergy Severe Other - Verified 06/25/21 17:45 kidney failure tobramycin Allergy Intermediate Other - Verified 06/25/21 17:45 turned beet red nafcillin Allergy Mild Rash Verified 06/25/21 17:45 benzoin Allergy Unknown Rash Verified 06/25/21 17:45 milk Allergy Unknown Other Verified 06/25/21 17:45 soy Allergy Unknown Other Verified 06/25/21 17:45 polyethylene glycol 3350 AdvReac Unknown Hives Verified 06/25/21 17:45 [From Miralax] Family History Grandmother Cancer maternal Other Adopted Surgical History derotatox ostomies eyes straightened Gastrostomy tube in place H/O spinal fusion Presence of intrathecal baclofen pump rods to back Status post Jorje fundoplication surgery on gland under tongue tendonatomies Tracheostomy status Social History household members: other details: Mother and is vent dependent housing: house Smoking Status: Never smoker second hand exposure: No alcohol intake: never substance use type: does not use ROS ROS Narrative See HPI Physical Exam Const alert and no apparent distress Constitutional Narrative: Baseline nonverbal status. HEENT normocephalic and head/scalp atraumatic HEENT Narrative: Macroglossia present Eyes PERRL and conjunctivae normal Neck supple Neck Narrative: Tracheostomy site intact without erythema or discharge noted. General: trachea midline Resp Auscultation: diminished lung sounds; Negative for rales, rhonchi or wheezes Cardio regular rate and regular rhythm GI normal to inspection, nondistended, normoactive bowel sounds Extremity Extremity Narrative: Contracted extremities with spastic quadriplegia General Extremity: Negative for clubbing or edema Skin no rashes or lesions noted Neuro Neuro Narrative: Baseline neurological status Psych Mood & Affect: flat affect Lab / Micro Data Result Diagrams: 06/26/21 05:25 06/26/21 05:25 Labs: Laboratory Results - last 24 hr 06/25/21 18:20: WBC 11.8 H, RBC 3.61 L, Hgb 11.1 L, Hct 32.6 L, MCV 90.3, MCH 30.7, MCHC 34.0, RDW Std Deviation 39.1, RDW Coeff of Anne 11.9, Plt Count 404, MPV 9.8, Immature Gran % (Auto) 1.700 H, Neut % (Auto) 76.1 H, Lymph % (Auto) 10.7 L, [place] % (Auto) 10.2 H, Eos % (Auto) 0.9, Baso % (Auto) 0.4, Absolute Neuts (auto) 9.0 H, Absolute Lymphs (auto) 1.26, Nucleated RBC % 0 06/25/21 18:20: PT Cancelled, INR Cancelled, APTT Cancelled 06/25/21 18:20: Sodium 136, Potassium 3.6, Chloride 97 L, Carbon Dioxide 31.0, Anion Gap 8, BUN 5 L, Creatinine 0.46 L, Estim Creat Clear Calc 138.31, Est GFR (MDRD) Af Amer 205, Est GFR (MDRD) Non-Af 169, BUN/Creatinine Ratio 10.9, Glucose 158 H, Calcium 10.0, Total Bilirubin 0.10 L, AST 20, ALT 34, Alkaline Phosphatase 138 H, Total Protein 8.9 H, Albumin 3.2, Globulin 5.7 H, Albumin/Globulin Ratio 0.6 L 06/25/21 18:20: Lactic Acid 2.5 H* 06/25/21 18:40: PT 13.2, INR 1.1, APTT 30.3 06/25/21 19:00: Urine Color Yellow, Urine Clarity Sl. Cloudy, Urine pH 8.0, Ur Specific [place] 1.015, Urine Protein 30 H, Urine Glucose (UA) Normal, Urine Ketones Negative, Urine Occult Blood 50 H, Urine Nitrite Negative, Urine Bilirubin Negative, Urine Urobilinogen Normal, Ur Leukocyte Esterase 500 H, Urine RBC 0-5 SEEN, Urine WBC 10-25 SEEN, Ur Squamous Epith Cells 0 SEEN, Urine Bacteria RARE, Urine Mucus 0 SEEN, Urine Yeast RARE 06/25/21 22:40: Lactic Acid 2.6 H* 06/26/21 05:25: WBC 9.3, RBC 3.03 L, Hgb 9.4 L, Hct 28.1 L, MCV 92.7, MCH 31.0, MCHC 33.5, RDW Std Deviation 40.9, RDW Coeff of Anne 12.1, Plt Count 319, MPV 9.7, Immature Gran % (Auto) 1.500 H, Neut % (Auto) 67.7, Lymph % (Auto) 17.3 L, [place] % (Auto) 11.6 H, Eos % (Auto) 1.5, Baso % (Auto) 0.4, Absolute Neuts (auto) 6.3, Absolute Lymphs (auto) 1.61, Nucleated RBC % 0 06/26/21 05:25: Sodium 139, Potassium 3.8, Chloride 102, Carbon Dioxide 30.0, Anion Gap 7, BUN 8, Creatinine 0.35 L, Estim Creat Clear Calc 168.02, Est GFR (MDRD) Af Amer 276, Est GFR (MDRD) Non-Af 228, BUN/Creatinine Ratio 22.7 H, Glucose 126 H, Calcium 9.4 06/26/21 05:45: Lactic Acid 1.4 Micro: Microbiology 06/25/21 18:20 Nasal Secretion SARS-CoV-2 Antigen (Rapid) - Final Radiology Impression Chest X-Ray 06/25/21 18:04 IMPRESSION: Left basilar atelectasis. Electronically Signed: Carter Hollingsworth DO at 19:55 EDT Tel [phone], Service support , Abdomen/Pelvis CT 06/25/21 18:06 IMPRESSION: Nonobstructive right renal calculi. Right ureteral stent in place. Colonic fecal retention. Electronically Signed: Carter Hollingsworth DO at 19:34 EDT Tel [phone], Service support , Charges/Coding Visit Charges Inpatient E&M: 79176 Init Hosp L2
[2021-06-26] MEDS: Enoxaparin 40 MG/0.4 ML Syringe SC (09:39)
[2021-06-26] MEDS: Senna/Docusate Sodium 1 Tablet 2 TABLET GT (09:40)
[2021-06-26] MEDS: Cholecalciferol (VIT D3) 25 MCG TABLET (1,000 UNITS) 50 MCG GT (09:40)
[2021-06-26] MEDS: Ferrous Sulfate 300 MG/5 ML UDC GT (09:41)
[2021-06-26] MEDS: Fluconazole 100 MG Tablet PO (09:42)
[2021-06-26] MEDS: diazePAM 2 MG Tablet GT ×2 (09:50→20:33)
[2021-06-26] MEDS: diazePAM 5 MG Tablet GT ×3 (09:50→20:33)
[2021-06-26 09:51] LABS: Bedside Glucose 100 mg/dL (70-110)
[2021-06-26] MEDS: Insulin Lispro 100 UNIT/ML INSULN.PEN 6 UNIT SC ×3 (11:09→17:55)
[2021-06-26 11:21] LABS: Bedside Glucose 108 mg/dL (70-110)
[2021-06-26 14:16] LABS: Bedside Glucose 120 mg/dL (70-110)
--- NOTE | 2021-06-26 14:20 | CASEMGMT ---
HIREN WILSON chart review: Patient was admitted 05/20/21-05/26/21 for Respiratory failure, LLL PNA, UTI, Sepsis. See HIREN WILSON assessment from 05/21/21. Patient was discharged to home with [facility] with [facility] and [facility] on IV ATBs for 3 weeks. Patient followed up with PCP, Dr. Anaya, and Dr. Bettencourt. HIREN WILSON in to discuss discharge planning with mother. No concerns at discharge and will go home with resumption of HHC. Mother had no further questions or concerns at this time.
[2021-06-26 17:21] LABS: Bedside Glucose 135 mg/dL (70-110)
[2021-06-26 21:06] LABS: Bedside Glucose 122 mg/dL (70-110)
[2021-06-27] VITALS (19 sets, daily range): BP systolic 90–122; BP diastolic 54–84; PULSE 55–107; RESP 17–30; TEMP 35.8–36.8; O2SAT 93–100
[2021-06-27 03:36] LABS: Absolute Lymphocyte Count 1.62 X10^3/uL (0.83-4.51); Absolute Neutrophil Count 5.5 X10^3/uL (2.0-7.7); Basophil# 0.04 X10^3/uL; Basophil% 0.5 % (0-1); Eosinophil# 0.18 X10^3/uL; Eosinophils% 2.2 % (0-5); Hematocrit 27.7 % (37-47); Hemoglobin 9.1 g/dL (12.0-15.0); Lymphocyte # 1.62 X10^3/ul (0.83-4.51); Lymphocyte % 19.6 % (19-41); Mean Corp Hgb Conc 32.9 g/dL (32-36); Mean Corpuscular Hgb 30.6 pg (27.0-32.0); Mean Corpuscular Volume 93.3 fL (81-99); Mean Platelet Vol. 9.3 fl (6.2-12.0); Monocyte% 8.5 % (0-10); NRBC Flagged by Analyzer 0 % (0-5); Neutrophil # 5.54 X10^3/uL (2.7-7.7); Neutrophil % 66.9 % (47-70); Platelet Count 369 K/mm3 (150-450); RBC Distribution Width CV 12.2 % (11.6-14.6); RBC Distribution Width SD 41.8 fl (35.1-43.9); Red Blood Count 2.97 M/mm3 (4.2-5.4); White Blood Count 8.3 K/mm3 (4.4-11.0)
[2021-06-27 04:11] LABS: ALB/GLOB Ratio 0.6 RATIO (0.9-2.4); AST(SGOT) 10 U/L (15-37); Alanine Aminotransfer ALT/SGPT 27 U/L (13-56); Albumin, Serum 2.7 g/dL (3.2-5.0); Alkaline Phosphatase 102 U/L (45-117); Anion Gap 5 (5-15); BUN 5 mg/dL (7-18); BUN/Creat Ratio 16.7 RATIO (10-20); Calcium,Total 9.7 mg/dL (8.5-10.1); Chloride 106 mmol/L (98-107); EST Glomerular Filtration Rate 276 mL/min (>60); Est Glom Filt Rate - Afr Amer 334 mL/min (>60); Estimated Creatinine Clearance 196.02 ml/min; Globulin 4.8 g/dL (2.2-4.2); Glucose 119 mg/dL (74-106); Potassium 3.8 mmol/L (3.5-5.1); Protein, Total 7.5 g/dL (6.4-8.2); Sodium Level 139 mmol/L (136-145); Total Bilirubin < 0.10 mg/dL (0.20-1.00)
--- NOTE | 2021-06-27 06:15 | NURSING ---
Pt straight cath for 200cc of clear yellow urine.
[2021-06-27] MEDS: Vancomycin 125 MG/5 ML Susp PO.SYRINGE GT ×2 (06:19→11:10)
[2021-06-27] MEDS: Baclofen 10 MG Tablet 30 MG GT ×3 (06:19→21:42)
[2021-06-27] MEDS: Albuterol 2.5 MG/3 ML VIAL.NEB. INHALATION ×3 (07:13→18:51)
[2021-06-27] MEDS: Budesonide Respules 0.5 MG/2 ML AMPUL.NEB. INHALATION ×2 (07:13→18:51)
[2021-06-27] MEDS: Insulin Lispro 100 UNIT/ML INSULN.PEN 6 UNIT SC ×4 (08:40→17:27)
[2021-06-27 08:45] LABS: Bedside Glucose 114 mg/dL (70-110)
[2021-06-27] MEDS: Senna/Docusate Sodium 1 Tablet 2 TABLET GT (10:43)
[2021-06-27] MEDS: Cholecalciferol (VIT D3) 25 MCG TABLET (1,000 UNITS) 50 MCG GT (10:44)
[2021-06-27] MEDS: Ferrous Sulfate 300 MG/5 ML UDC GT (10:44)
[2021-06-27] MEDS: Enoxaparin 40 MG/0.4 ML Syringe SC (10:44)
[2021-06-27] MEDS: Fluconazole 100 MG Tablet PO (10:45)
[2021-06-27] MEDS: diazePAM 2 MG Tablet GT ×2 (10:48→21:43)
[2021-06-27] MEDS: diazePAM 5 MG Tablet GT ×3 (10:48→21:43)
[2021-06-27 11:25] LABS: Bedside Glucose 159 mg/dL (70-110)
--- NOTE | 2021-06-27 13:52 | CASEMGMT ---
Addendum entered by Mey Son 06/27/21 15:09: HIREN WILSON received updated from Kate at [facility] and patient is good for Wednesday discharge with Wednesday start of care at home for IV ATBs. HIREN WILSON spoke with patient's mother and agreeable to discharge plan for [facility] and [facility]. Awaiting Picc line information and will fax when available. Green sheet placed on chart for weekend discharge. Original Note: HIREN WILSON updated that patient will potentially need IV ATBs at discharge. Patient was recently discharged on IV ATBs in May with [facility] and [facility]. HIREN WILSON attempted to call parents but no answer voice message left. HIREN WILSON sent referrals to [facility] and [facility] to begin referral process. HIREN WILSON received script from [facility] and faxed to [facility]. Awaiting IV access. Will continue to follow this patient and plan for a safe discharge.
--- NOTE | 2021-06-27 14:37 | PCM.PN.HOSP ---
Subjective Subjective Follow-up severe sepsis secondary to UTI: Patient was seen and examined. No acute events overnight. Urine cultures growing E. coli, possibly ESBL. Objective Data Objective Data Vital Signs: Vital Signs Temp Pulse Resp BP Pulse Ox 97.3 F L 73 18 122/73 H 100 06/27/21 08:32 06/27/21 13:44 06/27/21 13:44 06/27/21 08:32 06/27/21 08:32 Oxygen Flow Rate (L/min) 4 Oxygen Delivery Method Mechanical Ventilator Weight: 45.2 kg Body Mass Index (BMI) 26.2 Intake & Output: Intake and Output for Last 24 Hours 06/25/21 06/26/21 06/27/21 23:59 23:59 23:59 Intake Total 1785 / 1785 1280 / 1280 100 / 100 Output Total 1000 / 1000 200 / 200 Balance 1785 / 1785 280 / 280 -100 / -100 Lab / Micro Data Result Diagrams: 06/27/21 03:30 06/27/21 03:30 Labs: Laboratory Results - last 24 hr 06/26/21 17:16: POC Glucose 135 H 06/26/21 20:39: POC Glucose 122 H 06/27/21 03:30: WBC 8.3, RBC 2.97 L, Hgb 9.1 L, Hct 27.7 L, MCV 93.3, MCH 30.6, MCHC 32.9, RDW Std Deviation 41.8, RDW Coeff of Anne 12.2, Plt Count 369, MPV 9.3, Immature Gran % (Auto) 2.300 H, Neut % (Auto) 66.9, Lymph % (Auto) 19.6, [place] % (Auto) 8.5, Eos % (Auto) 2.2, Baso % (Auto) 0.5, Absolute Neuts (auto) 5.5, Absolute Lymphs (auto) 1.62, Nucleated RBC % 0 06/27/21 03:30: Sodium 139, Potassium 3.8, Chloride 106, Carbon Dioxide 28.0, Anion Gap 5, BUN 5 L, Creatinine 0.30 L, Estim Creat Clear Calc 196.02, Est GFR (MDRD) Af Amer 334, Est GFR (MDRD) Non-Af 276, BUN/Creatinine Ratio 16.7, Glucose 119 H, Calcium 9.7, Total Bilirubin < 0.10 L, AST 10 L, ALT 27, Alkaline Phosphatase 102, Total Protein 7.5, Albumin 2.7 L, Globulin 4.8 H, Albumin/Globulin Ratio 0.6 L 06/27/21 08:38: POC Glucose 114 H 06/27/21 11:18: POC Glucose 159 H Micro: Microbiology 06/25/21 19:00 Urine Catheter - Catheter Urine Culture - Preliminary Presumptive E. coli 06/25/21 18:20 Nasal Secretion SARS-CoV-2 Antigen (Rapid) - Final Physical Exam Narrative Physical exam: General: Alert, smiles easily, nonverbal/noncommunicative, contractures HEENT: Atraumatic, contracture of the neck Oral: Moist Mucosa Neck: Supple Lungs: Diminished to auscultation Cardiovascular: HS I+II, regular, no murmurs Abdomen: Bowel Sounds Present, Soft, Non Tender Extremities: No edema, atrophy and contracture of both upper and lower extremities Assessment & Plan Assessment/Plan (1) Sepsis: QUALIFIERS: Sepsis acute organ dysfunction status: with acute organ dysfunction Sepsis type: sepsis due to unspecified organism Severe sepsis acute organ dysfunction type: unspecified Severe sepsis shock status: without septic shock Qualified Code(s): A41.9 - Sepsis, unspecified organism; R65.20 - Severe sepsis without septic shock (2) UTI (urinary tract infection): QUALIFIERS: Hematuria presence: without hematuria Urinary tract infection type: site unspecified Qualified Code(s): N39.0 - Urinary tract infection, site not specified (3) Ureterolithiasis: (4) Complicated UTI (urinary tract infection): PLAN: 1. Sepsis secondary Acute complicated UTI, likely secondary to repeated catheterization of the bladder, improved Stable vitals, improved leukocytosis History of ESBL UTI recently. Repeat urine cultures also growing ESBL Patient also had cystoscopy, right ureteroscopy with laser lithotripsy and a right ureteral stent placed on 05/23/21. Patient has 3 SIRS criteria with a lactic acid more than 2 Continue on IV ertapenem, follow-up on recent outpatient urine cultures as well as urine cultures from this admission 2. Chronic respiratory failure status post tracheostomy and PEG, on ventilator Chest x-ray has showed left basilar atelectasis which is not new Chronic settings have not changed, will continue same 3. Acute fecal retention, continue on senokot prn Abdomen and pelvis CT with fecal retention 4. Type II Diabetes mellitus, blood glucose is controlled, will continue on insulin sliding scale 5. Cerebral palsy, complicated with contractures and PEG tube 6. DVT prophylaxis with Lovenox subcu Charges/Coding Visit Charges Inpatient E&M: 14956 Subs Hosp L2
--- NOTE | 2021-06-27 14:48 | CON.PCM.ID_ITS ---
Assessment & Plan Assessment/Plan (1) UTI (urinary tract infection): QUALIFIERS: Urinary tract infection type: site unspecified Hematuria presence: without hematuria Qualified Code(s): N39.0 - Urinary tract infection, site not specified PLAN: recurrent esbl ecoli infection with stones and R stent in place. Reviewed 06/23/21 ucx, shows esbl ecoli now R to meropenem. Limited options given susceptibilities, allergy history, and concern for renal involvement. Despite meropenem resistance, wbc and fever have normalized on the erta. Will order picc, 4 weeks erta. Has scheduled followup urologic procedure for the residual stone early next month. Discussed options with her mother, she agrees with plan, and we agree the goal is quality and not quantity of life for the patient. Recent constipation, so will cancel po vanc. Will follow, thank you, wrote rx, ID followup in 4 weeks. D/w Dr. Moncada and corrections caseworker (2) Cerebral palsy: QUALIFIERS: Cerebral palsy type: unspecified type Qualified Code(s): G80.9 - Cerebral palsy, unspecified HPI Consult Data Date of Consult: 06/27/21 HPI Narrative HPI Narrative: MANDY RIVERA, is a 31 F with cerebral palsy, trach, recurrent uti and chronic stones with R stent in place, who presented with fever, not feeling well. 06/13 completed several week course of erta for esbl uti. 06/23 ucx was sent, grew esbl ecoli. Started on cipro, sx worsened, came to ED. Admitted on ceftriaxone, changed to erta, doing better. ROS unobtainable. History obtained from mother. [facility] Medical History Allergic rhinitis due to other allergen Amenorrhea Bronchiectasis without acute exacerbation Bronchitis C. 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 Streptococcus pneumoniae Thrush Urinary tract infection due to extended-spectrum beta lactamase (ESBL) producing Escherichia coli Visual disturbance Vitamin D deficiency Home Medications baclofen 30 mg GT TID 12/21/13 [History Last Taken 06/25/211999] oxcarbazepine 300 mg/5 mL (60 mg/mL) oral suspension 8 ml GT BID ml 08/28/17 [History Last Taken 06/25/211999] insulin aspart U-100 100 unit/mL (3 mL) subcutaneous pen 8 units SQ 4X/DAY 09/20/20 [History Last Taken 06/25/21] ferrous sulfate 60 mg FEEDING TUBE DAILY 02/28/21 [History Last Taken 05/20/21] fluticasone propionate 2 puff INHALATION BID 02/28/21 [History Last Taken 05/20/21] levalbuterol HCl 1.25 mg/3 mL solution for nebulization 1.25 mg INHALATION BID #90 ml 03/05/21 [Rx Last Taken 06/25/21] cholecalciferol (vitamin D3) 50 mcg FEEDING TUBE DAILY 05/20/21 [History Last Taken 06/25/21 1000] diazepam 5 mg FEEDING TUBE DAILY@1400 05/20/21 [History Last Taken 06/25/21 1400] diazepam 7 mg FEEDING TUBE BID 05/20/21 [History Last Taken 06/25/211999] methenamine hippurate [Hiprex] 1 g FEEDING TUBE BID 05/20/21 [History Last Taken 05/20/21] psyllium husk (aspartame) [Daily Fiber (psyllium-aspart)] 1 packet G-TUBE DAILY PRN PRN #0 ea 05/24/21 [Rx Last Taken 06/25/21] acidophilus-pectin, citrus 1 tab G-TUBE BID 06/25/21 [History Last Taken 06/25/21 1000] cetirizine [Zyrtec] 10 mg PO DAILY PRN 06/25/21 [History Last Taken Unknown] levalbuterol HCl [Xopenex] 1.25 mg INHALATION Q20M PRN 06/25/21 [History Last Taken 06/25/21] multivit-folic acid-herbal 275 [Wellesse Multi Vitamin Plus] 10 ml DAILY 06/25/21 [History Last Taken 06/25/21] sennosides-docusate sodium [Stool Softener-Stimulant Laxat] 2 tab G-TUBE DAILY 06/25/21 [History Last Taken Unknown] vit c-ascorbate Ca-ascorb sod [Vitamin C] 10 ml PO DAILY 06/25/21 [History Last Taken 06/25/21 1000] ertapenem 1 g IV Q24H 28 Days #28 ea 06/27/21 [Rx Last Taken Unknown] Allergy/AdvReac Type Severity Reaction Status Date / Time linezolid Allergy Severe Other - Verified 06/25/21 17:45 seizure & coma vancomycin Allergy Severe Other - Verified 06/25/21 17:45 kidney failure tobramycin Allergy Intermediate Other - Verified 06/25/21 17:45 turned beet red nafcillin Allergy Mild Rash Verified 06/25/21 17:45 benzoin Allergy Unknown Rash Verified 06/25/21 17:45 milk Allergy Unknown Other Verified 06/25/21 17:45 soy Allergy Unknown Other Verified 06/25/21 17:45 polyethylene glycol 3350 AdvReac Unknown Hives Verified 06/25/21 17:45 [From Miralax] Family History Grandmother Cancer maternal Other Adopted Surgical History derotatox ostomies eyes straightened Gastrostomy tube in place H/O spinal fusion Presence of intrathecal baclofen pump rods to back Status post Jorje fundoplication surgery on gland under tongue tendonatomies Tracheostomy status Social History household members: other details: Mother and is vent dependent housing: house Smoking Status: Never smoker second hand exposure: No alcohol intake: never substance use type: does not use Physical Exam Const no apparent distress Exam Limitations: physical limitations HEENT head/scalp atraumatic Eyes PERRL and EOMs intact bilaterally Neck supple Resp normal air movement and clear to auscultation bilaterally Cardio regular rate and regular rhythm GI normal to inspection, nondistended, normoactive bowel sounds Skin no rashes or lesions noted Lab / Micro Data Result Diagrams: 06/27/21 03:30 06/27/21 03:30 Labs: Laboratory Results - last 24 hr 06/26/21 17:16: POC Glucose 135 H 06/26/21 20:39: POC Glucose 122 H 06/27/21 03:30: WBC 8.3, RBC 2.97 L, Hgb 9.1 L, Hct 27.7 L, MCV 93.3, MCH 30.6, MCHC 32.9, RDW Std Deviation 41.8, RDW Coeff of Anne 12.2, Plt Count 369, MPV 9.3, Immature Gran % (Auto) 2.300 H, Neut % (Auto) 66.9, Lymph % (Auto) 19.6, Elliott % (Auto) 8.5, Eos % (Auto) 2.2, Baso % (Auto) 0.5, Absolute Neuts (auto) 5.5, Absolute Lymphs (auto) 1.62, Nucleated RBC % 0 06/27/21 03:30: Sodium 139, Potassium 3.8, Chloride 106, Carbon Dioxide 28.0, Anion Gap 5, BUN 5 L, Creatinine 0.30 L, Estim Creat Clear Calc 196.02, Est GFR (MDRD) Af Amer 334, Est GFR (MDRD) Non-Af 276, BUN/Creatinine Ratio 16.7, Gl ucose 119 H, Calcium 9.7, Total Bilirubin < 0.10 L, AST 10 L, ALT 27, Alkaline Phosphatase 102, Total Protein 7.5, Albumin 2.7 L, Globulin 4.8 H, Albumin/Globulin Ratio 0.6 L 06/27/21 08:38: POC Glucose 114 H 06/27/21 11:18: POC Glucose 159 H Micro: Microbiology 06/25/21 19:00 Urine Catheter - Catheter Urine Culture - Preliminary Presumptive E. coli
[2021-06-27 14:55] LABS: Bedside Glucose 117 mg/dL (70-110)
[2021-06-27 17:35] LABS: Bedside Glucose 122 mg/dL (70-110)
[2021-06-28 02:59] VITALS: PULSE 56
[2021-06-28 04:22] VITALS: BP 140/80; PULSE 71; RESP 16; TEMP 36.6; O2SAT 100
[2021-06-28 04:35] LABS: Absolute Lymphocyte Count 1.65 X10^3/uL (0.83-4.51); Absolute Neutrophil Count 5.6 X10^3/uL (2.0-7.7); Basophil# 0.02 X10^3/uL; Basophil% 0.2 % (0-1); Eosinophil# 0.21 X10^3/uL; Eosinophils% 2.5 % (0-5); Hematocrit 27.3 % (37-47); Hemoglobin 9.1 g/dL (12.0-15.0); Lymphocyte # 1.65 X10^3/ul (0.83-4.51); Lymphocyte % 19.9 % (19-41); Mean Corp Hgb Conc 33.3 g/dL (32-36); Mean Corpuscular Hgb 31.5 pg (27.0-32.0); Mean Corpuscular Volume 94.5 fL (81-99); Mean Platelet Vol. 9.3 fl (6.2-12.0); Monocyte% 8.4 % (0-10); NRBC Flagged by Analyzer 0 % (0-5); Neutrophil # 5.57 X10^3/uL (2.7-7.7); Neutrophil % 67.2 % (47-70); Platelet Count 371 K/mm3 (150-450); RBC Distribution Width CV 12.4 % (11.6-14.6); RBC Distribution Width SD 42.7 fl (35.1-43.9); Red Blood Count 2.89 M/mm3 (4.2-5.4); White Blood Count 8.3 K/mm3 (4.4-11.0)
[2021-06-28 04:59] LABS: ALB/GLOB Ratio 0.6 RATIO (0.9-2.4); AST(SGOT) 7 U/L (15-37); Alanine Aminotransfer ALT/SGPT 24 U/L (13-56); Albumin, Serum 2.8 g/dL (3.2-5.0); Alkaline Phosphatase 98 U/L (45-117); Anion Gap 7 (5-15); BUN 7 mg/dL (7-18); BUN/Creat Ratio 18.7 RATIO (10-20); Calcium,Total 9.5 mg/dL (8.5-10.1); Chloride 105 mmol/L (98-107); Creatinine, Serum 0.38 mg/dL (0.55-1.02); EST Glomerular Filtration Rate 213 mL/min (>60); Est Glom Filt Rate - Afr Amer 258 mL/min (>60); Estimated Creatinine Clearance 153.06 ml/min; Globulin 4.7 g/dL (2.2-4.2); Glucose 112 mg/dL (74-106); Potassium 3.8 mmol/L (3.5-5.1); Protein, Total 7.5 g/dL (6.4-8.2); Sodium Level 141 mmol/L (136-145)
[2021-06-28] MEDS: Baclofen 10 MG Tablet 30 MG GT (05:49)
[2021-06-28] MEDS: Albuterol 2.5 MG/3 ML VIAL.NEB. INHALATION (07:34)
[2021-06-28] MEDS: Budesonide Respules 0.5 MG/2 ML AMPUL.NEB. INHALATION (07:34)
[2021-06-28 07:38] VITALS: PULSE 67; RESP 18
[2021-06-28 08:31] LABS: Bedside Glucose 90 mg/dL (70-110)
[2021-06-28] MEDS: Insulin Lispro 100 UNIT/ML INSULN.PEN 6 UNIT SC (08:35)
[2021-06-28] MEDS: Enoxaparin 40 MG/0.4 ML Syringe SC (08:35)
[2021-06-28] MEDS: Cholecalciferol (VIT D3) 25 MCG TABLET (1,000 UNITS) 50 MCG GT (08:37)
[2021-06-28] MEDS: Senna/Docusate Sodium 1 Tablet 2 TABLET GT (08:37)
[2021-06-28] MEDS: diazePAM 2 MG Tablet GT (08:38)
[2021-06-28] MEDS: Ferrous Sulfate 300 MG/5 ML UDC GT (08:38)
[2021-06-28] MEDS: Fluconazole 100 MG Tablet PO (08:38)
[2021-06-28] MEDS: diazePAM 5 MG Tablet GT (08:38)
[2021-06-28 09:00] VITALS: PULSE 48
--- NOTE | 2021-06-28 10:19 | CASEMGMT ---
TC to [facility] returned call. She is aware that pt is ready for dc and they will deliver IV med.
[2021-06-28 10:45] VITALS: BP 140/80; PULSE 76; TEMP 35.9; O2SAT 100
--- NOTE | 2021-06-28 10:46 | PCM.DC.SUM ---
Providers Date of Admission: 06/25/21 Date of Discharge: 06/28/21 Primary Care Physician: Dr. Sandra Bermudez, Consultations 06/25/21 22:21 Consult: Heating Unit Installer / Pulmonary Medicine Routine Consulting Provider: Lawrence Weiner Reason for Consult: SEPSIS WITH ELEVATED LACTIC ACID EMERGENT Consult: No Notified: Yes Date Notified: 06/25/21 Time Notified: 20:37 Method of Notification: Text 06/27/21 12:02 Consult: Infectious Disease Routine Consulting Provider: Rafa Bettencourt Reason for Consult: Acute complicated U EMERGENT Consult: No Notified: Yes Date Notified: 06/27/21 Time Notified: 12:03 Method of Notification: Text Reason For Visit: SEPSIS Diagnosis Discharge Diagnosis (1) Sepsis: Status: Resolved Code(s): A41.9 - Sepsis, unspecified organism Qualifiers: Sepsis acute organ dysfunction status: with acute organ dysfunction Sepsis type: sepsis due to unspecified organism Severe sepsis acute organ dysfunction type: unspecified Severe sepsis shock status: without septic shock Qualified Code(s): A41.9 - Sepsis, unspecified organism; R65.20 - Severe sepsis without septic shock (2) UTI (urinary tract infection): Status: Acute Code(s): N39.0 - Urinary tract infection, site not specified Qualifiers: Hematuria presence: without hematuria Urinary tract infection type: site unspecified Qualified Code(s): N39.0 - Urinary tract infection, site not specified (3) Ureterolithiasis: Status: Chronic Code(s): N20.1 - Calculus of ureter (4) Complicated UTI (urinary tract infection): Status: Acute Code(s): N39.0 - Urinary tract infection, site not specified Medications at Discharge Home Medications baclofen 30 mg GT TID 09/02/13 oxcarbazepine 300 mg/5 mL (60 mg/mL) oral suspension 8 ml GT BID ml 08/28/17 insulin aspart U-100 100 unit/mL (3 mL) subcutaneous pen 8 units SQ 4X/DAY 09/20/20 ferrous sulfate 60 mg FEEDING TUBE DAILY 02/28/21 fluticasone propionate 2 puff INHALATION BID 02/28/21 levalbuterol HCl 1.25 mg/3 mL solution for nebulization 1.25 mg INHALATION BID #90 ml 03/05/21 cholecalciferol (vitamin D3) 50 mcg FEEDING TUBE DAILY 05/20/21 diazepam 5 mg FEEDING TUBE DAILY@1400 05/20/21 diazepam 7 mg FEEDING TUBE BID 05/20/21 methenamine hippurate [Hiprex] 1 g FEEDING TUBE BID 05/20/21 Daily Fiber (psyllium-aspart) 1 packet G-TUBE DAILY PRN PRN #0 ea 05/24/21 Vitamin C 10 ml PO DAILY 06/25/21 Wellesse Multi Vitamin Plus 10 ml DAILY 06/25/21 acidophilus-pectin, citrus 1 tab G-TUBE BID 06/25/21 cetirizine 10 mg PO DAILY PRN 06/25/21 levalbuterol HCl [Xopenex] 1.25 mg INHALATION Q20M PRN 06/25/21 sennosides-docusate sodium [Stool Softener-Stimulant Laxat] 2 tab G-TUBE DAILY 06/25/21 ertapenem 1 g IV Q24@2200 #0 ea 06/27/21 ertapenem 1 g IV Q24H 28 Days #28 ea 06/27/21 Hospital Course Operations None Procedures None Summary of Care Provided Minutes Spent on Discharge: 45 Hospital Course: 31-year-old female past medical history of cerebral palsy, chronic respiratory failure status post tracheostomy and PEG, on chronic home ventilator, history of recurrent UTIs, complicated with kidney stones. Patient was recently admitted and discharged. She had a right ureteral stent placed. She has a follow-up with Dr. Tonja bermeo on July 16. She presented with fever and not feeling well. She was recently discharged with IV ertapenem for ESBL UTI. She completed her antibiotics on 06/13. She was being managed in the outpatient. She was started on Cipro but she got worse and was brought to the ED. Her urine cultures from admission grew ESBL E. coli. She was managed as sepsis secondary to acute ESBL UTI on IV ertapenem. Heating Unit Installer and infectious disease were consulted. Patient was recommended to go home on IV ertapenem for 4 weeks. She has upcoming urology surgery to work on the residual kidney stones. Patient had a PICC line placed on 06/27/21 and was discharged home today. Physical Exam Narrative Physical exam: General: Alert, smiles easily, nonverbal/noncommunicative, contractures HEENT: Atraumatic, contracture of the neck Oral: Moist Mucosa Neck: Supple Lungs: Diminished to auscultation Cardiovascular: HS I+II, regular, no murmurs Abdomen: Bowel Sounds Present, Soft, Non Tender Extremities: No edema, atrophy and contracture of both upper and lower extremities Weight / BMI Weight Weight: 44.996 kg Body Mass Index (BMI) 26.2 ABG / Lab / Microbiology Data Result Diagrams: 06/28/21 04:20 06/28/21 04:20 Laboratory: Laboratory Results - last 24 hr 06/27/21 11:18: POC Glucose 159 H 06/27/21 14:47: POC Glucose 117 H 06/27/21 17:26: POC Glucose 122 H 06/28/21 04:20: WBC 8.3, RBC 2.89 L, Hgb 9.1 L, Hct 27.3 L, MCV 94.5, MCH 31.5, MCHC 33.3, RDW Std Deviation 42.7, RDW Coeff of Anne 12.4, Plt Count 371, MPV 9.3, Immature Gran % (Auto) 1.800 H, Neut % (Auto) 67.2, Lymph % (Auto) 19.9, [place] % (Auto) 8.4, Eos % (Auto) 2.5, Baso % (Auto) 0.2, Absolute Neuts (auto) 5.6, Absolute Lymphs (auto) 1.65, Nucleated RBC % 0 06/28/21 04:20: Sodium 141, Potassium 3.8, Chloride 105, Carbon Dioxide 29.0, Anion Gap 7, BUN 7, Creatinine 0.38 L, Estim Creat Clear Calc 153.06, Est GFR (MDRD) Af Amer 258, Est GFR (MDRD) Non-Af 213, BUN/Creatinine Ratio 18.7, Glucose 112 H, Calcium 9.5, Total Bilirubin 0.10 L, AST 7 L, ALT 24, Alkaline Phosphatase 98, Total Protein 7.5, Albumin 2.8 L, Globulin 4.7 H, Albumin/Globulin Ratio 0.6 L 06/28/21 08:26: POC Glucose 90 Microbiology: Microbiology 06/25/21 18:20 Blood Culture (Wb) - Anticubital Left Blood Culture - Preliminary No growth in 48 hours. 06/25/21 18:10 Blood Culture (Wb) - No Site/Description Given Blood Culture - Preliminary No growth in 48 hours. 06/25/21 19:00 Urine Catheter - Catheter Urine Culture - Preliminary Presumptive E. coli 06/25/21 18:20 Nasal Secretion SARS-CoV-2 Antigen (Rapid) - Final D/C Instructions Discharge Diet: No restrictions Meaningful Use Info Meaningful Use Diagnoses (Choose all that apply): None applicable Discharge Plan Admission Admit Date/Time: 06/25/21 20:29 Primary Reason for Your Visit: Sepsis secondary to Acute UTI Attending Provider: Hillary Moncada Primary Care Provider: Sandra Bermudez Consulting Providers: Lawrence Weiner ; Rafa Bettencourt Discharge Orders/Prescriptions Prescriptions: New ertapenem 1 gram recon soln 1 g IV Q24H 28 Days Qty: 28 RF: 0 ertapenem 1 gram Recon Soln 1 g IV Q24@2200 Qty: 0 RF: 0 Continued oxcarbazepine [Trileptal] 300 mg/5 mL (60 mg/mL) suspension 8 ml GT BID RF: 0 insulin aspart U-100 100 unit/mL (3 mL) insulin pen 8 units SQ 4X/DAY RF: 0 baclofen 20 MG tablet 30 mg GT TID RF: 0 fluticasone propionate 44 mcg/actuation Hfa Aerosol Inhaler 2 puff INHALATION BID RF: 0 ferrous sulfate 15 mg iron (75 mg)/mL Syringe 60 mg feeding tube DAILY RF: 0 diazepam 5 mg/5 mL (1 mg/mL) Solution 7 mg feeding tube BID RF: 0 diazepam 5 mg/5 mL (1 mg/mL) Solution 5 mg feeding tube DAILY@1400 RF: 0 methenamine hippurate [Hiprex] 1 gram Tablet 1 g feeding tube BID RF: 0 cholecalciferol (vitamin D3) 10 mcg/mL (400 unit/mL) Drops 50 mcg feeding tube DAILY RF: 0 Daily Fiber (psyllium-aspart) 3 gram Powder In Packet 1 packet G-tube DAILY PRN PRN (Reason: Constipation) Qty: 0 RF: 0 levalbuterol HCl [Xopenex] 1.25 mg/3 mL Solution For Nebulization 1.25 mg INHALATION Q20M PRN (Reason: Shortness Of Breath) RF: 0 Wellesse Multi Vitamin Plus 400 mcg-200 mg/30 mL Liquid 10 ml DAILY RF: 0 cetirizine 1 mg/mL Solution 10 mg PO DAILY PRN (Reason: ALLERGIES) RF: 0 Vitamin C 500 mg/15 mL Liquid 10 ml PO DAILY RF: 0 sennosides-docusate sodium [Stool Softener-Stimulant Laxat] 8.6-50 mg tablet 2 tab G-tube DAILY RF: 0 acidophilus-pectin, citrus 25 million cell -100 mg tablet 1 tab G-tube BID RF: 0 levalbuterol HCl 1.25 mg/3 mL solution for nebulization 1.25 mg INHALATION BID Qty: 90 RF: 6 Referrals / Follow Up: Sandra Bermudez DO [Primary Care Provider] - Disposition Disposition (needs filled in before D/C Order can be placed): Home, Self Care Charges/Coding Visit Charges Inpatient E&M: 85510 Disch Hosp
--- NOTE | 2021-06-30 13:39 | CASEMGMT ---
HIREN WILSON Discharge Follow-up Phone Call: DYLAN: Ashli Strata: 4 Call Date: 06/30/21 Discharge Date: 06/28/21 Time of Call: 1335 Duration: 1 min Admitting Diagnosis: Sepsis RN KATIE attempted to complete follow-up phone call after recent hospitalization. No answer, voice message left with return contact information. Patient was sent home with [facility] and IV ATBs.
== END 2021-06-28 11:30 | disposition home or self-care (01) | DRG 463 ==
LOC: ED 20:25 → ICU 20:44
PROVIDERS: Admitting Provider Hospitalist; Emergency Provider Emergency Medicine; PCP Internal Medicine; Referring Provider Hospitalist; Visit Provider Internal Medicine
DX: N39.0 Urinary tract infection, site not specified (principal); Z93.0 Tracheostomy status; G80.0 Spastic quadriplegic cerebral palsy; Z99.11 Dependence on respirator [ventilator] status; J96.10 Chronic respiratory failure, unspecified whether with hypoxia or hypercapnia; E11.65 Type 2 diabetes mellitus with hyperglycemia; Z93.1 Gastrostomy status; K59.00 Constipation, unspecified; Z16.12 Extended spectrum beta lactamase (ESBL) resistance; N20.0 Calculus of kidney
CPT/HCPCS: 36569; 71045; 74176; 80048; 80053; 81001; 82962; 83605; 85025; 85610; 85730; 87040; 87086; 87088; 87186; 87426; 93005; 94640; 97802; 99285; 90686; A4216

== ENCOUNTER 2021-07-21 07:37 | Observation (INO) | payer MEDICAID, SELFPAY ==
[2021-07-21] VITALS (17 sets, daily range): BP systolic 116–147; BP diastolic 62–102; PULSE 49–95; RESP 14–20; TEMP 36.2–37.1; O2SAT 98–100; BMI 24.0
--- NOTE | 2021-07-21 | CALC_PTH ---
PATIENT: MANDY RIVERA LOC: [facility] U#:[id number] AGE/SX: 31/F ROOM: [facility] RE07/21/[address]: Dr. Maximino Barragan MD : 1990 BED: 1 DIS: 07/24/2021 SPEC #: [id number] RECD: 07/21/21 10:43 STATUS: SHAKIRA YA #: [id number] PAUL: 07/21/21 00:[address]: Samaria Anaya DEPT: SURGICAL PATHOLOGY RECD BY: Viktor Jacobs ENTERED: 07/21/21 13:29 SP TYPE: Calculi OTHR DR: DO Dr. River Arguelles MD Tissues: CALCULI Procedures: Surgery Specimen Level I HEADER OPERATION: Cystoscopy, right ureteroscopy, laser lithotripsy PRE-OP DIAGNOSIS: Right renal calculi TISSUE SUBMITTED: Right renal calculi for analysis GROSS DIAGNOSIS Right renal calculi, removal: Unremarkable calculi (gross diagnosis only). AM:azam 07/22/2021 COMMENT The calculus is submitted in its entirety for chemical stone analysis. The results from this study will be reported separately. GROSS DESCRIPTION Received without fixative labeled with the patient's name and designated right renal calculi. The specimen consists of multiple irregular fragments of [place] calculi measuring in aggregate 0.5 x 0.3 x 0.2 cm. The specimen is submitted in its entirety for chemical stone analysis. / AM:azam 07/21/21 CPT: 44100
[2021-07-21] MEDS: Lactated Ringers 1,000 ML 100 ML IV ×2 (07:10→09:38)
[2021-07-21 07:15] LABS: Bedside Glucose 127 mg/dL (70-110)
--- NOTE | 2021-07-21 07:16 | HP.PCM_ITS ---
HPI - General HPI Narrative MANDY RIVERA, is a 31 F who presents for right ureteroscopy, laser lithotripsy and right ureteral stent change. She has cerebral palsy with chronic urinary tract infections and right-sided stones. She is undergone 1 procedure and this is a second look. Informed consent was obtained by family. [facility] Medical History (Updated 07/21/21 @ 07:[address] Samaria Anaya MD) Allergic rhinitis due to other allergen Amenorrhea Bedbound Bronchiectasis without acute exacerbation Bronchitis Cerebral palsy Chronic respiratory failure Diabetes Hyperglycemia Irregular menstrual cycle Kidney stones Lactic acid acidosis Mild mental retardation Neuromuscular scoliosis Pancreatitis Paraplegia PICC (peripherally inserted central catheter) in place Pneumonia Recurrent UTI Renal calculus or stone Respiratory acidosis Seizure Severe sepsis Skin tag of vaginal mucosa 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 Thrush Urinary tract infection due to extended-spectrum beta lactamase (ESBL) producing Escherichia coli Visual disturbance Vitamin D deficiency Home Medications baclofen 30 mg GT TID 09/02/13 [History Last Taken 07/20/21] oxcarbazepine 300 mg/5 mL (60 mg/mL) oral suspension 8 ml GT BID ml 08/28/17 [History Last Taken 07/21/21] insulin aspart U-100 100 unit/mL (3 mL) subcutaneous pen 8 units SQ 4X/DAY 09/20/20 [History Last Taken 07/20/21] ferrous sulfate 60 mg FEEDING TUBE DAILY 02/28/21 [History Last Taken 07/20/21] fluticasone propionate 2 puff INHALATION BID 02/28/21 [History Last Taken 07/21/21] cholecalciferol (vitamin D3) 50 mcg FEEDING TUBE DAILY 05/20/21 [History Last Taken 07/20/21] diazepam 5 mg FEEDING TUBE DAILY@1400 05/20/21 [History Last Taken 07/20/21] diazepam 7 mg FEEDING TUBE BID 05/20/21 [History Last Taken 07/20/21] methenamine hippurate [Hiprex] 1 g FEEDING TUBE BID 05/20/21 [History Last Taken 07/20/21] Daily Fiber (psyllium-aspart) 1 packet G-TUBE DAILY PRN PRN #0 ea 05/24/21 [Rx Last Taken 07/20/21] Vitamin C 10 ml PO DAILY 06/25/21 [History Last Taken 07/20/21] Wellesse Multi Vitamin Plus 10 ml PO DAILY 06/25/21 [History Last Taken 07/20/21] acidophilus-pectin, citrus 1 tab G-TUBE BID 06/25/21 [History Last Taken 07/20/21] cetirizine 10 mg PO DAILY PRN 06/25/21 [History Last Taken 07/20/21] levalbuterol HCl [Xopenex] 1.25 mg INHALATION Q20M PRN 06/25/21 [History Last Taken 07/20/21] sennosides-docusate sodium [Stool Softener-Stimulant Laxat] 2 tab G-TUBE DAILY 06/25/21 [History Last Taken 07/20/21] ertapenem 1 g IV Q24@2200 #0 ea 06/27/21 [Rx Last Taken 07/20/21] ertapenem 1 g IV Q24H 28 Days #28 ea 06/27/21 [Rx Last Taken 07/20/21] levalbuterol HCl 1.25 mg/3 mL solution for nebulization 1.25 mg INHALATION BID #90 ml 07/04/21 [Rx Last Taken 07/20/21] fluconazole 5 mg FEEDING TUBE DAILY PRN 07/21/21 [History Last Taken 07/20/21] Allergy/AdvReac Type Severity Reaction Status Date / Time linezolid Allergy Severe Other - Verified 07/14/21 09:02 seizure & coma vancomycin Allergy Severe Other - Verified 07/14/21 09:02 kidney failure tobramycin Allergy Intermediate Other - Verified 07/14/21 09:02 turned beet red nafcillin Allergy Mild Rash Verified 07/14/21 09:02 benzoin Allergy Unknown Rash Verified 07/14/21 09:02 milk Allergy Unknown Other Verified 07/14/21 09:02 soy Allergy Unknown Other Verified 07/14/21 09:02 polyethylene glycol 3350 AdvReac Unknown Hives Verified 07/14/21 09:02 [From Miralax] Family History Grandmother Cancer maternal Other Adopted Surgical History derotatox ostomies eyes straightened Gastrostomy tube in place H/O spinal fusion Presence of intrathecal baclofen pump rods to back Status post Jorje fundoplication surgery on gland under tongue tendonatomies Tracheostomy status Social History household members: other details: Mother and is vent dependent housing: house Smoking Status: Never smoker second hand exposure: No alcohol intake: never substance use type: does not use ROS Review of Systems ROS Unobtainable: due to mental condition Vital Signs Vital Signs Vital Signs: 07/21/21 06:45 Temperature 98.5 F Temperature Source Temporal Pulse Rate 78 Respiratory Rate 14 Respiratory Pattern Normal Blood Pressure 133/96 H Blood Pressure Mean 108 Blood Pressure Source Monitor Blood Pressure Position Supine Blood Pressure Location Left Arm Pulse Ox 99 Oxygen Delivery Method Trach Collar Oxygen Flow Rate (L/min) 3 Weight Weight: 45.223 kg Body Mass Index (BMI) 24.0 Physical Exam Const alert and no apparent distress General Appearance: well kempt Exam Limitations: physical limitations Nutritional Appearance: thin HEENT head/scalp atraumatic and external ears normal Nose: external nose normal Mouth: oral and palatal mucosa normal and lips normal Neck Neck Narrative: tracheostomy appears normal Lymph Lymphatic: no lymphedema noted Chest Chest: symmetrical chest wall rise Cardio regular rate and regular rhythm GI soft to palpation, non-tender and non-distended no CVA tenderness Narrative: extra skin of the labia, bothersome with cathing. Skin no rashes or lesions noted General Skin Exam: no breakdown Hair: normal Results Lab / Micro Data Labs: Laboratory Results - last 24 hr 07/21/21 06:48: POC Glucose 127 H Assessment & Plan Assessment/Plan (1) Renal calculus or stone: PLAN: Cystoscopy, right ureteroscopy with laser lithotripsy and right ureteral stent removal, possible reinsertion. Has been on Diflucan for yeast. Will excise vaginal skin tag. Informed consent obtained from family. Patient will stay overnight following the procedure for observation secondary to history of seizures and ventilator dependency. We will consult hospitalist for medical management (2) UTI (urinary tract infection): QUALIFIERS: Urinary tract infection type: site unspecified Hematuria presence: without hematuria Qualified Code(s): N39.0 - Urinary tract infection, site not specified (3) Ventilator dependent: (4) Cerebral palsy: QUALIFIERS: Cerebral palsy type: unspecified type Qualified Code(s): G80.9 - Cerebral palsy, unspecified (5) Seizure: PLAN: ureteroscopy (6) Skin tag of vaginal mucosa: Procedure Criteria Type of Procedure Procedure Type: Elective Elective Risks - COVID COVID Risk Discussion: The surgeon/proceduralist and patient have discussed in detail the risk of exposure to and/or potential harm posed by the COVID-19 virus with having a surgery/procedure at this time versus the risk of delaying the surgery/procedure. It is not possible to know either the risk of delaying the surgery or procedure or chance of getting an infection with perfect accuracy, but a joint decision was made between the patient and the surgeon/proceduralist to proceed at this time with the scheduled surgery/procedure as indicated on the consent form.
[2021-07-21 07:20] LABS: Hematocrit 31.5 % (37-47); Hemoglobin 10.5 g/dL (12.0-15.0); Mean Corp Hgb Conc 33.3 g/dL (32-36); Mean Corpuscular Hgb 30.7 pg (27.0-32.0); Mean Corpuscular Volume 92.1 fL (81-99); Mean Platelet Vol. 10.4 fl (6.2-12.0); Platelet Count 200 K/mm3 (150-450); RBC Distribution Width CV 12.8 % (11.6-14.6); RBC Distribution Width SD 42.3 fl (35.1-43.9); Red Blood Count 3.42 M/mm3 (4.2-5.4); White Blood Count 7.9 K/mm3 (4.4-11.0)
[2021-07-21 07:37] LABS: Anion Gap 4 (5-15); BUN 7 mg/dL (7-18); BUN/Creat Ratio 18.9 RATIO (10-20); Calcium,Total 9.5 mg/dL (8.5-10.1); Chloride 97 mmol/L (98-107); Creatinine, Serum 0.37 mg/dL (0.55-1.02); EST Glomerular Filtration Rate 216 mL/min (>60); Est Glom Filt Rate - Afr Amer 261 mL/min (>60); Estimated Creatinine Clearance 157.28 ml/min; Glucose 116 mg/dL (74-106); Potassium 3.8 mmol/L (3.5-5.1); Sodium Level 131 mmol/L (136-145)
[2021-07-21] MEDS: Cefazolin 2 GM in 0.9% Normal Saline 100 ML IV (07:39)
[2021-07-21 10:16] LABS: Bedside Glucose 90 mg/dL (70-110)
--- NOTE | 2021-07-21 10:17 | PCM.OPRPT ---
Problems Associated Problem List Diagnoses (1) Renal calculus or stone: (2) Skin tag of vaginal mucosa: (3) Cerebral palsy: (4) Ventilator dependent: (5) Seizure: Report of Operation Date of Procedure: 07/21/21 Pre-Operative Diagnosis: right renal stone, urinary tract infections, vaginal skin tag Post-Operative Diagnosis: Same Surgery/Procedure Performed:: Cystoscopy, right ureteroscopy, holmium laser of the lithotripsy, stone basket extraction, right ureteral stent change Description of Surgical Findings:: The surgery was aborted early secondary to difficulty with ventilation, no complications were incurred. Surgeon: Samaria Anaya Type of Anesthesia: General Description of Procedure: The patient is a 31-year-old female with cerebral palsy, chronic urinary tract infections with right renal stones now presenting for repeat ureteroscopy laser lithotripsy and stent change. Informed consent was obtained preoperatively. The patient was taken to the operating room placed on the operating room table. Anesthesia monitored the head, neck, airway, IV access and vital signs throughout the case. Once anesthesia was apparently administered the patient was placed into dorsal lithotomy position was prepped and draped in usual sterile fashion. The cystoscope was inserted through the urethra under direct visualization into the urinary bladder. The indwelling right ureteral stent was observed, grasped with forceps and pulled to the urethral meatus. At this time 8.035 Glidewire was passed through the stent. Access was achieved to the renal pelvis as seen on fluoroscopy. A second Glidewire was then inserted alongside the first. A short ureteral reaccessed sheath was then inserted over the Glidewire without difficulty. This was done under fluoroscopic visualization. At this time the flexible ureteroscope was inserted through the sheath and access was obtained to the renal pelvis. Multiple stone fragments were seen. The holmium laser fiber 270 ?m in size was then used to break the fragments into small pieces and several pieces were able to be basket retrieved. In the middle of this process, anesthesia began having continued difficulty with end tidal volumes in maintaining appropriate ventilation. The decision was made to abort the procedure. The ureteroscope was used to remove the ureteral reaccessed sheath under direct visualization. There were no injuries identified to the ureter. At this time the remaining safety wire was used for placement of a 6 [place] 22 cm JJ stent which achieved good curling in the renal pelvis as well as the urinary bladder. At this time the patient's bladder was emptied and she was awakened and taken to the recovery room in good condition. There were no complications during this procedure. Grafts/Implants Used: 6 x 20 JJ stent Complications None Admit VTE Documentation VTE Present on Admission: No VTE Mechan Device Prophylaxis: None VTE Pharm Prophylaxis ordered?: Yes
--- NOTE | 2021-07-21 11:54 | PN.HOSP_ITS ---
Subjective Subjective Patient is being admitted after elective right ureteroscopy, laser lithotripsy and right ureteral stent change. She has cerebral palsy with chronic tracheostomy on ventilator and PEG tube. Discussed with Dr. Anaya. The procedure was cut short as anesthesiologist having difficulty with end tidal volume in maintaining appropriate ventilation. Procedure note was reviewed. Patient had cystoscopy, right ureteroscopy, holmium laser lithotripsy, stone basket extraction and right ureteral stent change Recently the patient had 2 admissions, 1 for septic shock in ICU in May 2021 and then complicated UTI in June 2021 and had right ureteral stenting. During first admission in May 2021, CT abdomen multiple nonobstructive calculi bladder. Tracheal culture shows Serratia marcescens 3+; Sensitive to ertapenem. Urine culture shows ESBL E. coli more than 100,000 colonies sensitive to meropenem. Patient had cystoscopy right ureteroscopy, laser lithotripsy and right ureteral stent insertion on 05/23/2021 and June 2021 Review of system Patient has chronic G-tube. Chronic tracheostomy on ventilator Shortly stitcher, CP Noncommunicative therefore 12 ROS unobtainable Objective Data Objective Data Vital Signs: Vital Signs Temp Pulse Resp BP Pulse Ox 97.8 F 70 14 130/86 H 100 07/21/21 11:00 07/21/21 11:00 07/21/21 11:00 07/21/21 11:00 07/21/21 11:00 Oxygen Flow Rate (L/min) 3 Oxygen Delivery Method Mechanical Ventilator Weight: 99 lb 11.2 oz Body Mass Index (BMI) 24.0 Intake & Output: Intake and Output for Last 24 Hours 07/20/21 07/20/21 07/21/21 00:59 23:59 23:59 Intake Total 1110 / 1110 Balance 1110 / 1110 Lab / Micro Data Result Diagrams: 07/21/21 06:56 07/21/21 06:56 Labs: Laboratory Results - last 24 hr 07/21/21 06:48: POC Glucose 127 H 07/21/21 06:56: WBC 7.9, RBC 3.42 L, Hgb 10.5 L, Hct 31.5 L, MCV 92.1, MCH 30.7, MCHC 33.3, RDW Std Deviation 42.3, RDW Coeff of Anne 12.8, Plt Count 200, MPV 10.4 07/21/21 06:56: Sodium 131 L, Potassium 3.8, Chloride 97 L, Carbon Dioxide 30.0, Anion Gap 4 L, BUN 7, Creatinine 0.37 L, Estim Creat Clear Calc 157.28, Est GFR (MDRD) Af Amer 261, Est GFR (MDRD) Non-Af 216, BUN/Creatinine Ratio 18.9, Glucose 116 H, Calcium 9.5 07/21/21 10:07: POC Glucose 90 Micro: Microbiology 07/21/21 06:40 Interface Orders SARS-CoV-2 Antigen (Rapid) - Final Physical Exam Narrative She smiles when her name is called. That is her baseline. I talked to patient's mother near the bedside. Nursing staff is trying to straight cath. On physical exam General: Short stature, cerebral palsy, mild lethargy, nonverbal and noncommunicative HEENT: Atraumatic, PERRLA, EOMI. Oral: Mouth open with drooling. Neck: Tracheostomy. Neck rotated on left lateral position. Lungs: Air entry diminished in bilateral lung bases. No crepitation/rhonchi Cardiovascular: Sinus rhythm on monitor, Normal S1, Normal S2, No murmurs Abdomen: G-tube. Bowel Sounds Present, Soft, Non Tender, Non-Distended : On a straight cath. No renal angle tenderness. No suprapubic tenderness. Extremities: No edema, Capillary Refill Less than 3 Seconds Skin: No rashes, No breakdown Musculoskeletal: Surgical scar on the left hip region in the past. Contracture of upper and lower extremities and neck. Neurological: Cranial nerves II-XII grossly intact, cerebral palsy with limited function. Psych/Mental Status: Flat affect. Assessment & Plan Assessment/Plan (1) Complicated UTI (urinary tract infection): (2) Renal calculus or stone: PLAN: 1. Complicated ESBL E. coli UTI due to multiple staghorn calculi with elective cystoscopy, laser lithotripsy, stent exchange: Procedure was cut short. Patient is on IV ertapenem. Patient has been seen by ID and recent admissions. No leukocytosis or thrombocytopenia. Rapid COVID-19 antigen negative. There was problem of end-tidal volume during the middle of procedure therefore procedure was cut short. She was seen by Dr. Ng in last 1 year for ear bleeding. He is being consulted for further opinion regarding tracheostomy tube possible tracheal stenosis. 2. 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 3. Acute on chronic Hyponatremia with suspected hypovolemia: Patient sodium is 131, chloride 97. Her baseline is around 140. Normal on IV fluid normal saline. 5. Diabetes mellitus type II: continue home insulin regimen, continue to feed with Accu-Cheks insulin coverage with Humalog sliding scale. Glucose on BMP 116. 6. Hx Microalbuminuria: Patient was on on lisinopril regimen, did not tolerated. Continue optimal glucose control. 7. DVT prophylaxis: SCDs, Lovenox. Management plan discussed with the patient's mother. Discussed with the urologist, Dr. Anaya 8. CODE status: Patient HCPOA is her mother who is present in the room. DNR- CCA, on continuous ventilator through is very small. Discharge medication reconciliation done. Discharge follow-up instructions completed. Discharge process discussed with the patient and all questions were answered to patient's satisfaction. Charges/Coding Visit Charges Inpatient E&M: 96769 Init Hosp L2
[2021-07-21] MEDS: Senna/Docusate Sodium 1 Tablet 2 TABLET GT (13:46)
[2021-07-21] MEDS: diazePAM 5 MG Tablet GT ×2 (13:46→20:20)
[2021-07-21] MEDS: Baclofen 10 MG Tablet 30 MG GT ×2 (13:46→20:09)
[2021-07-21 14:56] LABS: Bedside Glucose 86 mg/dL (70-110)
[2021-07-21 15:38] LABS: Internal QC Validated? YES +Cl - CLEAR BKGD; Pregnancy, Serum, hCG Quali. NEGATIVE Negative
[2021-07-21] MEDS: 0.9% Saline Lock 10 ML Syringe IV (16:25)
[2021-07-21] MEDS: 0.9% Normal Saline 1,000 ML 75 ML IV (16:25)
--- NOTE | 2021-07-21 16:57 | PN_ITS ---
Progress Note Asked to see the patient at the request of Dr. Anaya a tracheotomy tube problem. The patient is a 31-year-old white female who came in today for an elective urologic procedure. The case had to be aborted midway through because of difficulty ventilating the patient. The patient has had a tracheotomy tube since 2012. This was placed by Dr. Malagon at [facility] [facility]. 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 They have had no issues with the tracheotomy tube at home for years now. She has a 5.0 [address] pediatric tube in place with 3.5 cc of water in the cuff. During the procedure, the cuff began leaking. Eventually the patient cannot be adequately ventilated and the procedure was aborted. The patient was taken to the recovery room. Sometime after the procedure, the parents changed the tracheotomy tube to a new 5.0 tube. They happen to change the tracheotomy tube every 2 weeks. Physical exam: The patient is awake and alert. She is quite comfortable on her current ventilator settings. Neck is supple no masses. There is no subcutaneous air. A 5.0 Biv[place] pediatric tube is in place and the cuff is adequately inflated with water. Tracheoscopy: A flexible scope was inserted through the lumen of the tracheotomy tube and into the trachea. The tube was seated perfectly in the trachea. There is no evidence of tracheal stenosis or granulation tissue at the end of the tracheotomy tube. I then backed the tube out slowly while observing the tracheotomy tract. There was no evidence of granulation, bleeding or stenosis. The tube was then reinserted and secured. The cuff was reinflated. She tolerated all of this well without any complication. A: Inadequate ventilation likely secondary to positioning of the tracheotomy tube. I suspect that the tube was being tilted such that it was up against the tracheal wall. There is no evidence of a structural problem in the trachea. P: I will communicate these findings with anesthesia and Dr. Anaya.
[2021-07-21] MEDS: Fluconazole Suspension 40 MG/ML 35 ML Bottle 200 MG GT (17:41)
[2021-07-21] MEDS: Insulin Lispro 100 UNIT/ML INSULN.PEN 8 UNIT SC (17:50)
[2021-07-21 17:55] LABS: Bedside Glucose 110 mg/dL (70-110)
[2021-07-21] MEDS: Albuterol 2.5 MG/3 ML VIAL.NEB. INHALATION (19:45)
[2021-07-21] MEDS: Budesonide Respules 0.5 MG/2 ML AMPUL.NEB. INHALATION (19:46)
[2021-07-21] MEDS: Methenamine Hippurate 1 GM Tablet PO (20:09)
[2021-07-21] MEDS: diazePAM 2 MG Tablet PO (20:20)
[2021-07-22] VITALS (10 sets, daily range): BP systolic 111–122; BP diastolic 59–75; PULSE 47–68; RESP 16–20; TEMP 36.7–37.2; O2SAT 99–100
[2021-07-22] MEDS: Baclofen 10 MG Tablet 30 MG GT ×3 (05:32→20:28)
[2021-07-22 06:43] LABS: Absolute Lymphocyte Count 1.27 X10^3/uL (0.83-4.51); Absolute Neutrophil Count 3.3 X10^3/uL (2.0-7.7); Basophil# 0.02 X10^3/uL; Basophil% 0.4 % (0-1); Eosinophil# 0.36 X10^3/uL; Eosinophils% 6.7 % (0-5); Hematocrit 28.1 % (37-47); Hemoglobin 9.2 g/dL (12.0-15.0); Lymphocyte # 1.27 X10^3/ul (0.83-4.51); Lymphocyte % 23.5 % (19-41); Mean Corp Hgb Conc 32.7 g/dL (32-36); Mean Corpuscular Hgb 31.4 pg (27.0-32.0); Mean Corpuscular Volume 95.9 fL (81-99); Mean Platelet Vol. 10.1 fl (6.2-12.0); Monocyte# 0.47 X10^3/uL; Monocyte% 8.7 % (0-10); NRBC Flagged by Analyzer 0 % (0-5); Neutrophil # 3.27 X10^3/uL (2.7-7.7); Neutrophil % 60.3 % (47-70); Platelet Count 185 K/mm3 (150-450); RBC Distribution Width CV 13.2 % (11.6-14.6); RBC Distribution Width SD 46.1 fl (35.1-43.9); Red Blood Count 2.93 M/mm3 (4.2-5.4); White Blood Count 5.4 K/mm3 (4.4-11.0)
[2021-07-22] MEDS: Albuterol 2.5 MG/3 ML VIAL.NEB. INHALATION ×2 (07:04→19:07)
[2021-07-22] MEDS: Budesonide Respules 0.5 MG/2 ML AMPUL.NEB. INHALATION ×2 (07:05→19:07)
[2021-07-22 07:27] LABS: Anion Gap 4 (5-15); BUN 5 mg/dL (7-18); BUN/Creat Ratio 16.6 RATIO (10-20); Calcium,Total 8.9 mg/dL (8.5-10.1); Chloride 109 mmol/L (98-107); EST Glomerular Filtration Rate 273 mL/min (>60); Est Glom Filt Rate - Afr Amer 330 mL/min (>60); Estimated Creatinine Clearance 193.88 ml/min; Glucose 90 mg/dL (74-106); Potassium 3.9 mmol/L (3.5-5.1); Sodium Level 141 mmol/L (136-145)
--- NOTE | 2021-07-22 08:02 | PN.URO_ITS ---
Subjective Subjective Patient is comfortable in her bed this morning. Dad is at bedside. No events overnight. I discussed with Dr. Pang that the tracheostomy is positional but is healthy and does not require any revision or intervention at this time. Objective Data Objective Data Vital Signs: Vital Signs Temp Pulse Resp BP Pulse Ox 99.0 F 67 18 118/71 100 07/22/21 02:50 07/22/21 03:00 07/22/21 02:50 07/22/21 02:50 07/22/21 02:50 Oxygen Flow Rate (L/min) 3 Oxygen Delivery Method Mechanical Ventilator Weight: 45.2 kg Body Mass Index (BMI) 24.0 Intake & Output: Intake and Output for Last 24 Hours 07/20/21 07/21/21 07/22/21 23:59 23:59 23:59 Intake Total 2721.67 / 2961.67 1360 / 1360 Output Total 160 / 160 Balance 2721.67 / 2961.67 1200 / 1200 Lab / Micro Data Result Diagrams: 07/22/21 06:35 07/22/21 06:35 Labs: Laboratory Results - last 24 hr 07/21/21 10:07: POC Glucose 90 07/21/21 14:33: POC Glucose 86 07/21/21 14:45: Serum , Qual NEGATIVE 07/21/21 17:38: POC Glucose 110 07/22/21 06:35: WBC 5.4, RBC 2.93 L, Hgb 9.2 L, Hct 28.1 L, MCV 95.9, MCH 31.4, MCHC 32.7, RDW Std Deviation 46.1 H, RDW Coeff of Anne 13.2, Plt Count 185, MPV 10.1, Immature Gran % (Auto) 0.400, Neut % (Auto) 60.3, Lymph % (Auto) 23.5, [place] % (Auto) 8.7, Eos % (Auto) 6.7 H, Baso % (Auto) 0.4, Absolute Neuts (auto) 3.3, Absolute Lymphs (auto) 1.27, Nucleated RBC % 0 07/22/21 06:35: Sodium 141, Potassium 3.9, Chloride 109 H, Carbon Dioxide 28.0, Anion Gap 4 L, BUN 5 L, Creatinine 0.30 L, Estim Creat Clear Calc 193.88, Est GFR (MDRD) Af Amer 330, Est GFR (MDRD) Non-Af 273, BUN/Creatinine Ratio 16.6, Glucose 90, Calcium 8.9 Micro: Microbiology 07/21/21 06:40 Interface Orders SARS-CoV-2 Antigen (Rapid) - Final Physical Exam Narrative Patient is awake, comfortable, ventilating without difficulty. No issues with cathing etc. Assessment & Plan Assessment/Plan (1) Skin tag of vaginal mucosa: (2) Renal calculus or stone: (3) UTI (urinary tract infection): QUALIFIERS: Urinary tract infection type: site unspecified Hematuria presence: without hematuria Qualified Code(s): N39.0 - Urinary tract infection, site not specified (4) Ventilator dependent: PLAN: I will discuss with anesthesia, my office staff and attempt to reschedule the patient for surgical intervention to remove the remainder of the stones and the vaginal skin tag while she is here in the hospital. Family appreciates the plan.
[2021-07-22 09:35] LABS: Bedside Glucose 82 mg/dL (70-110)
[2021-07-22] MEDS: Acetaminophen 650 MG/20 ML UDC GT (10:53)
[2021-07-22] MEDS: diazePAM 5 MG Tablet GT ×3 (10:54→20:29)
[2021-07-22] MEDS: diazePAM 2 MG Tablet PO ×2 (10:54→20:29)
[2021-07-22] MEDS: Ferrous Sulfate 300 MG/5 ML UDC PO (10:54)
[2021-07-22] MEDS: Cholecalciferol (VIT D3) 25 MCG TABLET (1,000 UNITS) 50 MCG GT (10:55)
[2021-07-22] MEDS: Ascorbic Acid 500 MG Tablet GT (10:56)
[2021-07-22] MEDS: Methenamine Hippurate 1 GM Tablet PO ×2 (10:56→20:28)
[2021-07-22] MEDS: Senna/Docusate Sodium 1 Tablet 2 TABLET GT (10:57)
[2021-07-22] MEDS: Docusate Sodium 100 MG/10 ML UDC 60 MG GT (11:03)
[2021-07-22 11:25] LABS: Bedside Glucose 76 mg/dL (70-110)
[2021-07-22 14:11] LABS: Bedside Glucose 96 mg/dL (70-110)
[2021-07-22] MEDS: Insulin Lispro 100 UNIT/ML INSULN.PEN 8 UNIT SC (14:15)
--- NOTE | 2021-07-22 16:23 | PN.HOSP_ITS ---
Subjective Subjective As per mother, patient is more lethargic but no fever. When I told patients name she is mild. Patient was evaluated by ENT Dr. Ng. Objective Data Objective Data Vital Signs: Vital Signs Temp Pulse Resp BP Pulse Ox 98.0 F 68 16 112/71 100 07/22/21 14:31 07/22/21 14:31 07/22/21 14:31 07/22/21 14:31 07/22/21 14:31 Oxygen Flow Rate (L/min) 3 Oxygen Delivery Method Trach Collar Weight: 99 lb 10.383 oz Body Mass Index (BMI) 24.0 Intake & Output: Intake and Output for Last 24 Hours 07/20/21 07/21/21 07/22/21 23:59 23:59 23:59 Intake Total 2721.67 / 2961.67 2380 / 2380 Output Total 410 / 410 Balance 2721.67 / 2961.67 1969 / 1969 Lab / Micro Data Result Diagrams: 07/22/21 06:35 07/22/21 06:35 Labs: Laboratory Results - last 24 hr 07/21/21 17:38: POC Glucose 110 07/22/21 06:35: WBC 5.4, RBC 2.93 L, Hgb 9.2 L, Hct 28.1 L, MCV 95.9, MCH 31.4, MCHC 32.7, RDW Std Deviation 46.1 H, RDW Coeff of Anne 13.2, Plt Count 185, MPV 10.1, Immature Gran % (Auto) 0.400, Neut % (Auto) 60.3, Lymph % (Auto) 23.5, [place] % (Auto) 8.7, Eos % (Auto) 6.7 H, Baso % (Auto) 0.4, Absolute Neuts (auto) 3.3, Absolute Lymphs (auto) 1.27, Nucleated RBC % 0 07/22/21 06:35: Sodium 141, Potassium 3.9, Chloride 109 H, Carbon Dioxide 28.0, Anion Gap 4 L, BUN 5 L, Creatinine 0.30 L, Estim Creat Clear Calc 193.88, Est GFR (MDRD) Af Amer 330, Est GFR (MDRD) Non-Af 273, BUN/Creatinine Ratio 16.6, Glucose 90, Calcium 8.9 07/22/21 09:23: POC Glucose 82 07/22/21 11:07: POC Glucose 76 07/22/21 14:06: POC Glucose 96 Micro: Microbiology 07/21/21 06:40 Interface Orders SARS-CoV-2 Antigen (Rapid) - Final Physical Exam Narrative raight cath. On physical exam General: Short stature, cerebral palsy, mild lethargy, nonverbal and nonc ommunicative HEENT: Atraumatic, PERRLA, EOMI. Oral: Mouth open with drooling. Neck: Tracheostomy working good. Neck rotated on left lateral position. Lungs: Ventilating bilateral equal. Air entry equal in bilateral lung bases. No crepitation/rhonchi Cardiovascular: Sinus rhythm on monitor, Normal S1, Normal S2, No murmurs Abdomen: G-tube. Bowel Sounds Present, Soft, Non Tender, Non-Distended : On a straight cath. No renal angle tenderness. No suprapubic tenderness. Extremities: No edema, Capillary Refill Less than 3 Seconds Skin: No rashes, No breakdown Musculoskeletal: Surgical scar on the left hip region in the past. Contracture of upper and lower extremities and neck. Neurological: Cranial nerves II-XII grossly intact, cerebral palsy with limited function. Psych/Mental Status: Flat affect. Assessment & Plan Assessment/Plan (1) Complicated UTI (urinary tract infection): (2) Renal calculus or stone: PLAN: 1. Complicated ESBL E. coli UTI due to multiple staghorn calculi with elective cystoscopy, laser lithotripsy, stent exchange: Procedure was cut short. Patient is on IV ertapenem. Patient has been seen by ID and recent admissions. No leukocytosis or thrombocytopenia. Rapid COVID-19 antigen negative. There was problem of end-tidal volume during the middle of procedure therefore procedure was cut short. She was seen by Dr. Ng in last 1 year for ear bleeding. He is being consulted for further opinion regarding tracheostomy tube possible tracheal stenosis. 07/22: No leukocytosis. Patient is on ertapenem. Patient evaluated by ENT Dr. Ng and said tracheostomy might have been kinked upwards but no granulation tissue, tracheal stenosis or stricture noticed. As per nursing staff, plan of repeat stone treatment on morning. 2. 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 3. Acute on chronic Hyponatremia with suspected hypovolemia: Patient sodium is 131, chloride 97. Her baseline is around 140. Normal on IV fluid normal saline. 5. Diabetes mellitus type II: continue home insulin regimen, continue to feed with Accu-Cheks insulin coverage with Humalog sliding scale. Glucose on BMP 116. 07/22: Patient glucose is in 90s therefore Humalog scheduled insulin decreased to 5 units 3 times daily AC 6. Hx Microalbuminuria: Patient was on on lisinopril regimen, did not tolerated. Continue optimal glucose control. 7. DVT prophylaxis: SCDs, Lovenox. Management plan discussed with the patient's mother. Discussed with the urologist, Dr. Anaya 8. CODE status: Patient HCPBHAVIN is her mother who is present in the room. DNR- CCA, on continuous ventilator through is very small. Discharge medication reconciliation done. Discharge follow-up instructions completed. Discharge process discussed with the patient and all questions were answered to patient's satisfaction. Charges/Coding Visit Charges Inpatient E&M: 30394 Subs Hosp L2
[2021-07-22 17:26] LABS: Bedside Glucose 117 mg/dL (70-110)
[2021-07-22 18:23] LABS: Bacteria 0 SEEN /hpf (None Seen); Color, Urine Yellow (Yellow); Glucose, Dipstick Normal (Normal); Ketone-Dipstick Negative (Negative); Leukocyte Esterase-Dipstick 500 /ul (Negative); Mucous, Urine 0 SEEN /hpf (<or=2+); Nitrite-Dipstick Negative (Negative); Occult Blood-Urine 250 /ul (Negative); Protein-Dipstick 100 mg/dl (Negative); Urine Bilirubin Dipstick Negative (Negative); Urine Clarity Sl. Cloudy (Clear); Urine Urobilinogen Normal (Normal)
[2021-07-22 18:35] LABS: Red Blood Cells-Urine 10-25 SEEN /hpf (0-5); Squamous Epithelial Cells - UA 0-5 SEEN /hpf (5-10); White Blood Cells 25-50 SEEN /hpf (0-5)
[2021-07-22 18:36] LABS: Amorphous Sediment 1+
[2021-07-23] VITALS (11 sets, daily range): BP systolic 93–124; BP diastolic 61–81; PULSE 53–87; RESP 14–23; TEMP 36.4–37.3; O2SAT 99–100
[2021-07-23] MEDS: Baclofen 10 MG Tablet 30 MG GT ×3 (05:57→22:24)
[2021-07-23 07:09] LABS: Anion Gap 5 (5-15); BUN 4 mg/dL (7-18); BUN/Creat Ratio 12.5 RATIO (10-20); Calcium,Total 8.7 mg/dL (8.5-10.1); Chloride 105 mmol/L (98-107); Creatinine, Serum 0.32 mg/dL (0.55-1.02); EST Glomerular Filtration Rate 256 mL/min (>60); Est Glom Filt Rate - Afr Amer 310 mL/min (>60); Estimated Creatinine Clearance 181.76 ml/min; Glucose 94 mg/dL (74-106); Potassium 4.4 mmol/L (3.5-5.1); Sodium Level 138 mmol/L (136-145)
[2021-07-23] MEDS: Budesonide Respules 0.5 MG/2 ML AMPUL.NEB. INHALATION ×2 (07:17→19:26)
[2021-07-23] MEDS: Albuterol 2.5 MG/3 ML VIAL.NEB. INHALATION ×2 (07:17→19:26)
[2021-07-23 08:40] LABS: Bedside Glucose 85 mg/dL (70-110)
[2021-07-23] MEDS: Senna/Docusate Sodium 1 Tablet 2 TABLET GT (09:17)
[2021-07-23] MEDS: Docusate Sodium 100 MG/10 ML UDC 60 MG GT (09:17)
[2021-07-23] MEDS: diazePAM 2 MG Tablet PO ×2 (09:19→22:22)
[2021-07-23] MEDS: Ascorbic Acid 500 MG Tablet GT (09:19)
[2021-07-23] MEDS: Cholecalciferol (VIT D3) 25 MCG TABLET (1,000 UNITS) 50 MCG GT (09:19)
[2021-07-23] MEDS: diazePAM 5 MG Tablet GT ×3 (09:19→22:21)
[2021-07-23] MEDS: Methenamine Hippurate 1 GM Tablet PO ×2 (10:54→22:24)
[2021-07-23] MEDS: 0.9% Saline Lock 10 ML Syringe IV ×2 (10:58→22:43)
[2021-07-23 11:21] LABS: Bedside Glucose 115 mg/dL (70-110)
[2021-07-23 13:55] LABS: Bedside Glucose 127 mg/dL (70-110)
--- NOTE | 2021-07-23 16:00 | PCM.PROGNOTE ---
Subjective Subjective Doing well. No issues overnight. We will get her last tube feed at 5 PM. Objective Data Objective Data Vital Signs: Vital Signs Temp Pulse Resp BP Pulse Ox 98.1 F 74 23 H 121/71 H 100 07/23/21 09:53 07/23/21 14:54 07/23/21 09:53 07/23/21 09:53 07/23/21 09:53 Oxygen Flow Rate (L/min) 3 Oxygen Delivery Method Mechanical Ventilator Weight: 45.2 kg Body Mass Index (BMI) 24.0 Intake & Output: Intake and Output for Last 24 Hours 07/21/21 07/22/21 07/23/21 23:59 23:59 23:59 Intake Total 2721.67 / 2961.67 2410 / 2510 210 / 210 Output Total 410 / 660 250 / 250 Balance 2721.67 / 2961.67 1999 -40 / -40 Lab / Micro Data Result Diagrams: 07/22/21 06:35 07/23/21 06:42 Labs: Laboratory Results - last 24 hr 07/22/21 05:35: Urine Color Yellow, Urine Clarity Sl. Cloudy, Urine pH 7.0, Ur Specific [place] 1.010, Urine Protein 100 H, Urine Glucose (UA) Normal, Urine Ketones Negative, Urine Occult Blood 250 H, Urine Nitrite Negative, Urine Bilirubin Negative, Urine Urobilinogen Normal, Ur Leukocyte Esterase 500 H, Urine RBC 10-25 SEEN, Urine WBC 25-50 SEEN, Ur Squamous Epith Cells 0-5 SEEN, Amorphous Sediment 1+, Urine Bacteria 0 SEEN, Urine Mucus 0 SEEN 07/22/21 17:17: POC Glucose 117 H 07/23/21 06:42: Sodium 138, Potassium 4.4, Chloride 105, Carbon Dioxide 28.0, Anion Gap 5, BUN 4 L, Creatinine 0.32 L, Estim Creat Clear Calc 181.76, Est GFR (MDRD) Af Amer 310, Est GFR (MDRD) Non-Af 256, BUN/Creatinine Ratio 12.5, Glucose 94, Calcium 8.7 07/23/21 08:32: POC Glucose 85 07/23/21 11:16: POC Glucose 115 H 07/23/21 13:49: POC Glucose 127 H Micro: Microbiology 07/22/21 05:35 Urine, Catheterized Urine Culture - Preliminary Culture exhibits no growth. 07/21/21 06:40 Interface Orders SARS-CoV-2 Antigen (Rapid) - Final Physical Exam Narrative Resting comfortably in bed. No change in physical exam. Ventilating without concerns. Assessment & Plan Assessment/Plan (1) Skin tag of vaginal mucosa: (2) Renal calculus or stone: (3) Ventilator dependent: (4) Seizure: PLAN: Proceed with surgical intervention tomorrow as planned.
[2021-07-23] MEDS: Insulin Lispro 100 UNIT/ML INSULN.PEN SC (16:30)
[2021-07-23 16:40] LABS: Bedside Glucose 155 mg/dL (70-110)
--- NOTE | 2021-07-23 23:37 | PCS.PANDOC ---
PANDEMIC DOCUMENTATION INITIATED: Date: 04/28/2021 Time: 190
[2021-07-24] VITALS (13 sets, daily range): BP systolic 117–141; BP diastolic 63–102; PULSE 45–94; RESP 16–22; TEMP 36.1–36.9; O2SAT 94–100; BMI 24.0
[2021-07-24] MEDS: Albuterol 2.5 MG/3 ML VIAL.NEB. INHALATION (07:15)
[2021-07-24] MEDS: Budesonide Respules 0.5 MG/2 ML AMPUL.NEB. INHALATION (07:15)
--- NOTE | 2021-07-24 08:18 | PCM.OPRPT ---
Problems Associated Problem List Diagnoses (1) Renal calculus or stone: (2) Skin tag of vaginal mucosa: Report of Operation Date of Procedure: 07/24/21 Pre-Operative Diagnosis: right renal stones, vaginal skin tag Post-Operative Diagnosis: same Surgery/Procedure Performed:: Cystoscopy, right ureteroscopy, holmium laser lithotripsy, stone basket extraction, right ureteral stent change, excision of vaginal skin tag Surgeon: Samaria Anaya Type of Anesthesia: General Specimen's removed: right renal stones, vaginal skin tag Description of Procedure: The patient is a 31-year-old female that we are taking back for cystoscopy, right ureteroscopy laser lithotripsy stone basket extraction and right stent change along with excision of vaginal skin tag. Informed consent was obtained. The patient was taken the operating room and placed on the operating room table. Anesthesia monitored the head, neck, airway, IV access and vital signs throughout the case. Once anesthesia was appropriate ministered the patient was positioned and prepped and draped in usual sterile fashion. The cystoscope was inserted through the urethra under direct visualization. The stent was grasped and brought to the urethral meatus. A wire was loaded through the stent and used as the safety wire. A second wire was inserted alongside the first. Using fluoroscopic visualization, a ureteral reaccessed sheath was easily placed into the right ureter. The flexible ureteroscope along with the 270 ?m laser fiber was used to break her renal stones into smaller pieces. The stone basket was used for extraction. The upper pole appeared to be clean along with the lower pole. There were multiple trips in and out of the renal pelvis with the basket and ureteroscope. This took an extended amount of time. The midpole still retaining a decent amount of stone. The laser was used to break the stone into smaller pieces until there was some bleeding and visualization was difficult. At this time the ureteroscope was used to directly visualize the entire length of the ureter with careful removal of the reaccessed sheath. The cystoscope was then used for insertion of the new 6 [place] 20 cm JJ stent. At this time the patient's bladder was emptied. Her right labial vaginal skin tag was infiltrated with 1% lidocaine with epinephrine. A Daisy clamp was used for hemostatic control. A knife was used for excision of the skin tag. The skin edge was closed using running interlocking 4-0 Vicryl. Bacitracin was used on the incision. The patient was then awakened and taken to the recovery room in good condition. There were no complications during this procedure. Grafts/Implants Used: 6x20 JJ stent Complications None Admit VTE Documentation VTE Present on Admission: No VTE Pharm Prophylaxis ordered?: No
[2021-07-24] MEDS: Lactated Ringers 1,000 ML 15 ML IV (08:42)
[2021-07-24 08:45] LABS: Bedside Glucose 89 mg/dL (70-110)
--- NOTE | 2021-07-24 08:45 | CALC_PTH ---
PATIENT: MANDY RIVERA LOC: [facility] U#:[id number] AGE/SX: 31/F ROOM: [facility] RE07/21/[address]: Dr. Maximino Barragan MD : 1990 BED: 1 DIS: 07/24/2021 SPEC #: [id number] RECD: 07/24/21 13:23 STATUS: SHAKIRA YA #: [id number] PAUL: 07/24/21 08:[address]: Samaria Anaya DEPT: SURGICAL PATHOLOGY RECD BY: Debra Zimmer ENTERED: 07/24/21 13:49 SP TYPE: Calculi OTHR DR: MD Dr. Sandra Steele DO Dr. Kevin Mathur, MD Dr. Nicholas F Kotsonis, MD Dr. Prakash Chand, MD Tissues: CALCULI Procedures: Surgery Specimen Level I Comments: @ Ordering doctor for DEWAYNE edited from to @ by RGOOD at 07/24/21 1537 @ Submitting doctor edited from to @ by RGOOD at 07/24/21 1537 HEADER OPERATION: Cystoscopy, ureteroscopy, laser, basket extraction PRE-OP DIAGNOSIS: Renal calculus or stone TISSUE SUBMITTED: Renal calculi gross only GROSS DIAGNOSIS Fragments of stone, clinically renal calculi. CASA:azam 07/25/2021 COMMENT The calculus is submitted in its entirety for chemical stone analysis. The results from this study will be reported separately. GROSS DESCRIPTION Received without fixative labeled with the patient's name and designated renal calculi. The specimen consists of multiple irregular fragments of [place]-brown stones measuring in aggregate 2 x 0.5 x 0.3 cm and weighing 0.3 gm. The specimen is for gross identification only. The entire specimen is submitted for stone analysis. / CASA:azam 07/24/21 CPT: 06698
[2021-07-24] MEDS: Cefazolin 2 GM in 0.9% Normal Saline 100 ML IV (08:54)
[2021-07-24] MEDS: Lidocaine 1% /Epi 1:100 (50ml) 50 ML VIAL (11:25)
[2021-07-24] MEDS: Bacitracin 500 UNITS/GM PACKET (11:25)
--- NOTE | 2021-07-24 11:51 | CT_ITS ---
STUDY: CT ABDOMEN AND PELVIS WITHOUT CONTRAST REASON FOR EXAM: Female, 31 years old. Right renal stones. Right renal stone removal and stent placement. RADIATION DOSAGE (If Supplied By Facility): CTDIvol = ( 9.64 ) mGy, DLP = ( 453.81 ) mGycm TECHNIQUE: Transaxial images were obtained from the dome of the diaphragm to the symphysis pubis without oral contrast, and without intravenous contrast. Sagittal and coronal images were reconstructed. Individualized dose optimization techniques were used for this CT. COMPARISON: Comparison is made with prior study dated 06/25/2021. FINDINGS: The visualized lung bases are unremarkable. Coronary artery calcification. Normal liver. Normal gallbladder and extrahepatic biliary system. Normal spleen. Normal pancreas. Normal bilateral adrenal glands. Nonobstructive right intrarenal calculi. The largest calculus is in the lower pole and measures 8.5 mm there is a right-sided double-J stent catheter is seen with the proximal tip in the right renal pelvis. Small amount of air is seen within the renal collecting system in keeping with the placement of a right double-J stent catheter. Distal tip is in the right side of the bladder. Tiny nonobstructive left intrarenal calculi. Once again, a percutaneous gastrostomy tube is seen within the stomach. Normal small intestine. Normal colon. The appendix is visualized and appears normal. Normal abdominal aorta. Normal inferior vena cava. Normal retroperitoneum. Normal urinary bladder. Fibroid uterus. Normal abdominal wall. There are diffuse degenerative changes of the visualized lumbar spine. Patient is status post SOLIS angelo fixation of the scoliosis. Dextroscoliosis. CT/Abdomen/Pelvis without Cont IMPRESSION: Nonobstructive bilateral intrarenal calculi. A right-sided double-J stent catheter seen with the proximal tip in the right renal pelvis and the distal tip in the right side urinary bladder. Electronically Signed: Francisco Vogt MD at 13:36 EST , Service support ,
--- NOTE | 2021-07-24 11:56 | PCM.DC.BLA ---
Discharge Summary Date of Admission: 07/21/21 Date of Discharge: 07/24/21 Summary: The patient is a 31-year-old female with cerebral palsy, ventilator dependency and a longstanding history of recurrent urinary tract infections with intermittent sepsis, right renal stones and seizure history. She underwent a cystoscopy with ureteroscopy laser lithotripsy and stent change on July 21. There was difficulty during the procedure due to ventilation and the procedure was aborted early. The patient was admitted for evaluation of her tracheostomy and for repeat surgical intervention. Her tracheostomy was found to be healthy, the cuff was adjusted and she was prepared for surgical take back on 07/24/21. She underwent this procedure without difficulty and was discharged home in good condition. Physical Exam Narrative Non mobile, contractures, stable. Alert and appeared to be in no significant distress. Ventilating without difficulty on her home vent. Vital signs stable. Abdomen soft nontender nondistended. Extremity is in their usual position without evidence of wounds. Patient is on her menstrual period. She has significant scoliosis. Meaningful Use Info Meaningful Use Diagnoses (Choose all that apply): None applicable Discharge Plan Admission Admit Date/Time: 07/21/21 07:37 Attending Provider: Maximino Barragan Primary Care Provider: Sandra Bermudez Consulting Providers: Nathan Ng ; River Mireles Discharge Orders/Prescriptions Prescriptions: New cephalexin [cephalexin] 500 MG capsule 500 mg PO Q12 3 Days Qty: 6 RF: 0 Continued oxcarbazepine [Trileptal] 300 mg/5 mL (60 mg/mL) suspension 8 ml GT BID RF: 0 insulin aspart U-100 100 unit/mL (3 mL) insulin pen 8 units SQ 4X/DAY RF: 0 baclofen 20 MG tablet 30 mg GT TID RF: 0 fluticasone propionate 44 mcg/actuation Hfa Aerosol Inhaler 2 puff INHALATION BID RF: 0 ferrous sulfate 15 mg iron (75 mg)/mL Syringe 60 mg feeding tube DAILY RF: 0 diazepam 5 mg/5 mL (1 mg/mL) Solution 7 mg feeding tube BID RF: 0 diazepam 5 mg/5 mL (1 mg/mL) Solution 5 mg feeding tube DAILY@1400 RF: 0 methenamine hippurate [Hiprex] 1 gram Tablet 1 g feeding tube BID RF: 0 cholecalciferol (vitamin D3) 10 mcg/mL (400 unit/mL) Drops 50 mcg feeding tube DAILY RF: 0 Daily Fiber (psyllium-aspart) 3 gram Powder In Packet 1 packet G-tube DAILY PRN PRN (Reason: Constipation) Qty: 0 RF: 0 docusate sodium 60 mg/15 mL Syrup 60 mg feeding tube DAILY RF: 0 levalbuterol HCl [Xopenex] 1.25 mg/3 mL Solution For Nebulization 1.25 mg INHALATION Q20M PRN (Reason: Shortness Of Breath) RF: 0 Wellesse Multi Vitamin Plus 400 mcg-200 mg/30 mL Liquid 10 ml PO DAILY RF: 0 cetirizine 1 mg/mL Solution 10 mg feeding tube DAILY PRN PRN (Reason: allergies) RF: 0 Vitamin C 500 mg/15 mL Liquid 10 ml PO DAILY RF: 0 acidophilus-pectin, citrus 25 million cell -100 mg tablet 1 tab G-tube DAILY RF: 0 ertapenem 1 gram recon soln 1 g IV Q24H 28 Days Qty: 28 RF: 0 levalbuterol HCl 1.25 mg/3 mL solution for nebulization 1.25 mg INHALATION BID Qty: 90 RF: 6 Discontinued fluconazole 40 mg/mL suspension for reconstitution 5 mg feeding tube QHS RF: 0 Referrals / Follow Up: Sandra Bermudez DO [Primary Care Provider] - Disposition Disposition (needs filled in before D/C Order can be placed): Home, Self Care
--- NOTE | 2021-07-24 12:00 | DCINST_ITS ---
Discharge Instructions Diet Discharge Diet: - (Resume normal tube feeds.) Activity Discharge Activity: Return to Normal Activity Dressing / Incision Call your doctor if your incision/area has: Continuous Slow Oozing, Sudden Incr eased Bleeding, Increased Pain/ Swelling, Increased Redness, Foul Smelling Discharge and Swelling at the incision site Call your doctor if you observe: Fever of 101 or Higher, Inability to urinate, Inability to have a bowel movement and Uncontrolled pain Suture Line Care: Avoid Pinching/Bending Cleanse incision/area with: Keep Dressing Clean & Dry and - (Keep bacitracin across the suture line) Follow Up Care Please Follow Up With: Samaria Anaya MD When: The office will contact the family Test Results: Test results from this visit will be discussed in further detail at your follow-up appointment, if applicable. Discharge Plan Admission Admit Date/Time: 07/21/21 07:37 Attending Provider: Maximino Barragan Primary Care Provider: Sandra Bremudez Consulting Providers: Nathan Ng ; River Mireles Discharge Orders/Prescriptions Prescriptions: New cephalexin [cephalexin] 500 MG capsule 500 mg PO Q12 3 Days Qty: 6 RF: 0 Continued oxcarbazepine [Trileptal] 300 mg/5 mL (60 mg/mL) suspension 8 ml GT BID RF: 0 insulin aspart U-100 100 unit/mL (3 mL) insulin pen 8 units SQ 4X/DAY RF: 0 baclofen 20 MG tablet 30 mg GT TID RF: 0 fluticasone propionate 44 mcg/actuation Hfa Aerosol Inhaler 2 puff INHALATION BID RF: 0 ferrous sulfate 15 mg iron (75 mg)/mL Syringe 60 mg feeding tube DAILY RF: 0 diazepam 5 mg/5 mL (1 mg/mL) Solution 7 mg feeding tube BID RF: 0 diazepam 5 mg/5 mL (1 mg/mL) Solution 5 mg feeding tube DAILY@1400 RF: 0 methenamine hippurate [Hiprex] 1 gram Tablet 1 g feeding tube BID RF: 0 cholecalciferol (vitamin D3) 10 mcg/mL (400 unit/mL) Drops 50 mcg feeding tube DAILY RF: 0 Daily Fiber (psyllium-aspart) 3 gram Powder In Packet 1 packet G-tube DAILY PRN PRN (Reason: Constipation) Qty: 0 RF: 0 docusate sodium 60 mg/15 mL Syrup 60 mg feeding tube DAILY RF: 0 levalbuterol HCl [Xopenex] 1.25 mg/3 mL Solution For Nebulization 1.25 mg INHALATION Q20M PRN (Reason: Shortness Of Breath) RF: 0 Wellesse Multi Vitamin Plus 400 mcg-200 mg/30 mL Liquid 10 ml PO DAILY RF: 0 cetirizine 1 mg/mL Solution 10 mg feeding tube DAILY PRN PRN (Reason: allergies) RF: 0 Vitamin C 500 mg/15 mL Liquid 10 ml PO DAILY RF: 0 acidophilus-pectin, citrus 25 million cell -100 mg tablet 1 tab G-tube DAILY RF: 0 ertapenem 1 gram recon soln 1 g IV Q24H 28 Days Qty: 28 RF: 0 levalbuterol HCl 1.25 mg/3 mL solution for nebulization 1.25 mg INHALATION BID Qty: 90 RF: 6 Discontinued fluconazole 40 mg/mL suspension for reconstitution 5 mg feeding tube QHS RF: 0 Referrals / Follow Up: Sandra Bermudez DO [Primary Care Provider] - Disposition Disposition (needs filled in before D/C Order can be placed): Home, Self Care
[2021-07-24 12:51] LABS: Bedside Glucose 82 mg/dL (70-110)
--- NOTE | 2021-07-24 12:52 | CASEMGMT ---
Addendum entered by Mey Weinstein 07/24/21 15:27: This RN CM spoke with Kate at [facility] and she is updated that Dr. Bettencourt's office should be faxing new order. Kate states she will have pharmacist reach out to Sg's office in regards to same. Kate is requesting clinicals from this visit also and they are faxed at this time. Kate is aware that pt's mother has 4 doses of med still at home, voices understanding. Moose MARADIAGA CM Addendum entered by Mey Weinstein 07/24/21 13:44: Pt also has [facility] for care and clinicals faxed to [facility] and [facility] at this time. [facility] aware that pt to be discharged today and that pt was OBS status, voices understanding. Moose RN KATIE Addendum entered by Mey Weinstein 07/24/21 13:32: Call back from Linda at [facility] and she states RANJANA order not needed d/t OBS status. She states no concerns with resuming care once pt home and is aware of Ertapenem for 1 more week. Linda will be in touch with [facility] regarding order from Dr. Bettencourt's office. Mother requests [facility] for pt transport home and Susanne, U front office secretary, aware. Per Susanne, transport home is scheduled for 1800 and mother updated, voices understanding. Mother voices no further questions/concerns/needs. Moose MARADIAGA CM Original Note: Call from Linda at [facility] and she states that pt's last dose of Ertapenem would have been today and she is wondering what the plan is. Pt is now done in surgery and Dr. Anaya paged to clarify. Per Héctor, pt will go home on po keflex but to talk to Dr. Bettencourt regarding Ertapenem. This RN CM spoke with Dr. Bettencourt and he states he would like pt to be on Ertapenem at least one more week and he will have his office facilitate this. Message left with Linda at [facility] regarding same and for her to call this RN CM back. This RN CM to room to update pt's mother on all, voices understanding. Pt already has PICC line in place and mother states that they have 3-4 doses of Ertapenem still at home from when pt admitted. CM to follow. SStaten HIREN CM
[2021-07-24] MEDS: Ferrous Sulfate 300 MG/5 ML UDC PO (13:42)
[2021-07-24] MEDS: Docusate Sodium 100 MG/10 ML UDC 60 MG GT (13:42)
[2021-07-24] MEDS: Senna/Docusate Sodium 1 Tablet 2 TABLET GT (13:43)
[2021-07-24] MEDS: Ascorbic Acid 500 MG Tablet GT (13:43)
[2021-07-24] MEDS: Cholecalciferol (VIT D3) 25 MCG TABLET (1,000 UNITS) 50 MCG GT (13:43)
[2021-07-24] MEDS: Baclofen 10 MG Tablet 30 MG GT (13:43)
[2021-07-24] MEDS: Methenamine Hippurate 1 GM Tablet PO (13:44)
[2021-07-24] MEDS: diazePAM 5 MG Tablet GT (13:58)
[2021-07-24] MEDS: Acetaminophen 650 MG/20 ML UDC GT (14:48)
[2021-08-12 16:19] LABS: Source KIDNEY
== END 2021-07-24 12:03 | disposition home health service (06) ==
LOC: PCU 07-22 07:49 → ACINP 07-23 08:41 → PCU 07-23 08:41
PROVIDERS: Anesthesiology; Internal Medicine; Admitting Provider Urology; PCP Internal Medicine; Referring Provider Urology; Visit Provider Family Medicine
PROC: 0TJ98ZZ Inspection of Ureter, Via Natural or Artificial Opening Endoscopic (ICD-10-PCS; CPT 52352; principal; 2021-07-21 07:20)
DX: N20.0 Calculus of kidney (principal); G80.0 Spastic quadriplegic cerebral palsy; N39.0 Urinary tract infection, site not specified; E11.9 Type 2 diabetes mellitus without complications; J96.10 Chronic respiratory failure, unspecified whether with hypoxia or hypercapnia; F70 Mild intellectual disabilities; M41.40 Neuromuscular scoliosis, site unspecified; L91.8 Other hypertrophic disorders of the skin; G40.909 Epilepsy, unspecified, not intractable, without status epilepticus; B96.20 Unspecified Escherichia coli [E. coli] as the cause of diseases classified elsewhere; E87.1 Hypo-osmolality and hyponatremia; Q27.8 Other specified congenital malformations of peripheral vascular system; Z99.11 Dependence on respirator [ventilator] status; Z79.899 Other long term (current) drug therapy; Z74.01 Bed confinement status; Z79.4 Long term (current) use of insulin; Z93.1 Gastrostomy status; Z93.0 Tracheostomy status; Z96.89 Presence of other specified functional implants
CPT/HCPCS: 00918 ×2; 11200; 52356 ×2; 74176; 76000; 80048; 81001; 82360; 82962; 84703; 85025; 85027; 87086; 87426; 88300; 94640; 96361; 96365; 96366; 97802; 99218; 99251; J7030; J7120; A4216; G0378; G0463; J2405

== ENCOUNTER 2021-08-06 12:09 | Inpatient (IN) | payer MEDICAID, SELFPAY ==
[2021-08-06] VITALS (15 sets, daily range): BP systolic 103–157; BP diastolic 59–108; PULSE 95–135; RESP 14–24; TEMP 37.5–38.8; O2SAT 100; BMI 32.2; BMI 22.3
--- NOTE | 2021-08-06 12:23 | ED.RN ---
PICC REMOVED ON WEDNESDAY. PT WAS ON ANTIBIOTICS FOR SEVEN DAYS FOR KIDNEY STONES/UTI. KIDNEY STONES WERE REMOVED WHILE IN HOSPITAL RECENTLY.
--- NOTE | 2021-08-06 12:27 | EKG12_ITS ---
Test Reason : ILLNESS Blood Pressure : / mmHG Vent. Rate : 131 BPM Atrial Rate : 131 BPM P-R Int : 152 ms QRS Dur : 078 ms QT Int : 292 ms P-R-T Axes : 034 003 059 degrees QTc Int : 431 ms Sinus tachycardia Otherwise normal ECG Confirmed by KAITLIN LEIJA, FROYLAN ([id number]), assistant editor KRYSYTNA ANDERSON ([id number]) on 08/08/2021 11:41:25 AM Referred By: NELSON Confirmed By:FROYLAN MADRIGAL MD
--- NOTE | 2021-08-06 12:29 | EDS_ITS ---
HPI History of Present Illness Chief Complaint: Fever Narrative Narrative: History and physical is limited secondary to cerebral palsy. Per mother, patient presents with fever of 103 ?F this morning. She was recently admitted to the hospital for kidney stones and was being treated for urinary tract infection. She was admitted on July 21, and stayed in the hospital for 7 days. She then went home with a midline and received further antibiotics for 7 days. She states that she had kidney stones, and Dr. Belle Schuler placed a stent on the right, and removed stones on the right but she has remaining stones on the left. Mother states that patient was not feeling well last evening, and this morning awoke with a temperature. The midline had been removed yesterday because the antibiotics have been completed. 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 Thrush Urinary tract infection due to extended-spectrum beta lactamase (ESBL) producing Escherichia coli Visual disturbance Vitamin D deficiency Home Medications baclofen 30 mg GT TID 09/02/13 [History Last Taken 08/05/21] oxcarbazepine 300 mg/5 mL (60 mg/mL) oral suspension 8 ml GT BID ml 08/28/17 [History Last Taken 08/05/21] insulin aspart U-100 100 unit/mL (3 mL) subcutaneous pen 8 units SQ 4X/DAY 09/20/20 [History Last Taken 08/05/21] ferrous sulfate 60 mg FEEDING TUBE DAILY 02/28/21 [History Last Taken 08/05/21] cholecalciferol (vitamin D3) 50 mcg FEEDING TUBE DAILY 05/20/21 [History Last Taken 08/05/21] diazepam 5 mg FEEDING TUBE DAILY@1400 05/20/21 [History Last Taken 08/05/21] diazepam 7 mg FEEDING TUBE BID 05/20/21 [History Last Taken 08/05/21] methenamine hippurate [Hiprex] 1 g FEEDING TUBE BID 05/20/21 [History Last Taken 08/05/21] Daily Fiber (psyllium-aspart) 1 packet G-TUBE DAILY PRN PRN #0 ea 05/24/21 [Rx Last Taken 08/05/21] Vitamin C 10 ml PO DAILY 06/25/21 [History Last Taken 08/05/21] Wellesse Multi Vitamin Plus 10 ml PO DAILY 06/25/21 [History Last Taken 08/05/21] acidophilus-pectin, citrus 1 tab G-TUBE DAILY 06/25/21 [History Last Taken 08/05/21] levalbuterol HCl [Xopenex] 1.25 mg INHALATION Q20M PRN 06/25/21 [History Last Taken 08/05/21] docusate sodium 60 mg FEEDING TUBE DAILY 07/21/21 [History Last Taken 08/05/21] Allergy/AdvReac Type Severity Reaction Status Date / Time linezolid Allergy Severe Other - Verified 08/06/21 12:18 seizure & coma vancomycin Allergy Severe Other - Verified 08/06/21 12:18 kidney failure tobramycin Allergy Intermediate Other - Verified 08/06/21 12:18 turned beet red nafcillin Allergy Mild Rash Verified 08/06/21 12:18 benzoin Allergy Unknown Rash Verified 08/06/21 12:18 milk Allergy Unknown Other Verified 08/06/21 12:18 soy Allergy Unknown Other Verified 08/06/21 12:18 polyethylene glycol 3350 AdvReac Unknown Hives Verified 08/06/21 12:18 [From Miralax] Family History Grandmother Cancer maternal Other Adopted Surgical History derotatox ostomies eyes straightened Gastrostomy tube in place H/O spinal fusion Presence of intrathecal baclofen pump rods to back Status post Jorje fundoplication surgery on gland under tongue tendonatomies Tracheostomy status Social History household members: other details: Mother and is vent dependent housing: house Smoking Status: Never smoker second hand exposure: No alcohol intake: never substance use type: does not use ROS ROS ED ROS Narrative Unable to obtain review of systems from patient. History comes from mother/caregiver and is as follows: Constitutional: Positive fever, no chills. Positive malaise. HEENT: No sore throat. No neck pain. No loss of vision. No rhinorrhea. Cardiovascular: No chest pain. No palpitations. No pedal edema. Respiratory: No cough, no shortness of breath. Abdominal: No abdominal pain. No nausea. No vomiting. Genitourinary: No dysuria. Positive hematuria, being treated for kidney stones. Patient has catheterization of the bladder performed 3 times a day. Musculoskeletal: No myalgias. No arthralgias. Neurologic: No headaches. No dizziness. No lightheadedness. Skin: No rash. No change in color. Psychiatric: No depression. No anxiety. Review of Systems ROS Unobtainable: due to mental condition and other Details: Cerebral palsy EXAM Physical Exam Narrative Exam Narrative: Positive fever 100.4 vital signs noted. HEENT: Atraumatic. PERRL, EOMI. Neck soft and supple. Cardiovascular: Tachycardia no murmurs, rubs, or gallops appreciated. Respiratory: Mild tachypnea. Rhonchi auscultated anteriorly bilaterally. Gastrointestinal: Abdomen soft, nontender, with normoactive bowel sounds. No rebound or guarding. Neurological: Awake. Consistent with cerebral palsy. Skin: No rash. Normal color. No pallor. Musculoskeletal: No pedal edema. At baseline, positive contractures consistent with cerebral palsy.. Const Vital Signs: 08/06/21 12:10 08/06/21 12:17 08/06/21 12:20 Temperature 100.4 F H 100.3 F H Temperature Source Temporal Temporal Pulse Rate 132 H 135 H Respiratory Rate 24 H 18 Respiratory Effort Normal Respiratory Pattern Normal Blood Pressure 141/98 H 130/91 H Blood Pressure Mean 112 104 Pulse Ox 100 100 Oxygen Delivery Method Mechanical Ventilator Mechanical Ventilator 08/06/21 12:30 08/06/21 13:17 08/06/21 13:31 Temperature 100.1 F H 100.3 F H 100.3 F H Temperature Source Temporal Temporal Temporal Pulse Rate 133 H 131 H Respiratory Rate 22 H 20 H Respiratory Effort Respiratory Pattern Blood Pressure 130/91 H 135/107 H Blood Pressure Mean 104 116 Pulse Ox 100 100 Oxygen Delivery Method Mechanical Ventilator Mechanical Ventilator 08/06/21 14:00 08/06/21 14:47 Temperature 100.0 F H 100.0 F H Temperature Source Temporal Temporal Pulse Rate 95 109 H Respiratory Rate 18 18 Respiratory Effort Respiratory Pattern Blood Pressure 103/59 L 137/108 H Blood Pressure Mean 73 117 Pulse Ox 100 100 Oxygen Delivery Method Mechanical Ventilator Mechanical Ventilator MDM MDM MDM Narrative Medical decision making narrative: Sepsis work-up was pursued. EKG demonstrates sinus tachycardia at 131 bpm without ectopy or acute ST changes. Patient has already received Tylenol within the last 3 hours. Patient has an elevated white count of 14. Hemoglobin stable at 11.8. Coags are negative. Sodium slightly low 133 with a chloride of 95, also low. Her lactic acid is elevated at 3.6. Blood cultures and urine cultures are pending. It does appear that she has a UTI with greater than 100 WBCs. This was sent for culture. Chest x-ray shows no interval change. She has multiple allergies. Mother thinks that she was on ertapenem. She will be given meropenem here in the emergency department as a one-time dose. I do feel that she needs admission for sepsis and urinary tract infection. Patient will be discussed with the hospitalist. I was able to discuss the patient with Dr. Chery Miranda, who requested that a KUB be obtained. She will be admitted to the PCU in stable condition. Lab Data Attestation: I reviewed the patient's lab results. Labs: Laboratory Results - last 24 hr 08/06/21 08/06/21 08/06/21 12:25 12:25 12:25 WBC 14.0 H RBC 3.83 L Hgb 11.8 L Hct 34.7 L MCV 90.6 MCH 30.8 MCHC 34.0 RDW Std Deviation 41.1 RDW Coeff of Anne 12.5 Plt Count 272 MPV 10.1 Immature Gran % (Auto) 0.600 Neut % (Auto) 82.9 H Lymph % (Auto) 5.6 L [place] % (Auto) 10.2 H Eos % (Auto) 0.6 Baso % (Auto) 0.1 Absolute Neuts (auto) 11.6 H Absolute Lymphs (auto) 0.78 L Nucleated RBC % 0 PT 13.8 INR 1.1 APTT 29.0 Sodium 133 L Potassium 4.0 Chloride 95 L Carbon Dioxide 28.0 Anion Gap 10 BUN 6 L Creatinine 0.55 Estim Creat Clear Calc 142.02 Est GFR (MDRD) Af Amer 164 Est GFR (MDRD) Non-Af 136 BUN/Creatinine Ratio 10.8 Glucose 127 H Lactic Acid Calcium 9.6 Total Bilirubin 0.20 AST 26 ALT 29 Alkaline Phosphatase 125 H Total Protein 8.3 H Albumin 3.5 Globulin 4.8 H Albumin/Globulin Ratio 0.7 L Urine Color Urine Clarity Urine pH Ur Specific [place] Urine Protein Urine Glucose (UA) Urine Ketones Urine Occult Blood Urine Nitrite Urine Bilirubin Urine Urobilinogen Ur Leukocyte Esterase Urine RBC Urine WBC Ur Squamous Epith Cells Urine Bacteria Urine Mucus 08/06/21 08/06/21 12:25 13:25 WBC RBC Hgb Hct MCV MCH MCHC RDW Std Deviation RDW Coeff of Anne Plt Count MPV Immature Gran % (Auto) Neut % (Auto) Lymph % (Auto) [place] % (Auto) Eos % (Auto) Baso % (Auto) Absolute Neuts (auto) Absolute Lymphs (auto) Nucleated RBC % PT INR APTT Sodium Potassium Chloride Carbon Dioxide Anion Gap BUN Creatinine Estim Creat Clear Calc Est GFR (MDRD) Af Amer Est GFR (MDRD) Non-Af BUN/Creatinine Ratio Glucose Lactic Acid 3.6 H* Calcium Total Bilirubin AST ALT Alkaline Phosphatase Total Protein Albumin Globulin Albumin/Globulin Ratio Urine Color Yellow Urine Clarity Cloudy Urine pH 8.0 Ur Specific [place] 1.015 Urine Protein 30 H Urine Glucose (UA) Normal Urine Ketones Negative Urine Occult Blood 150 H Urine Nitrite Negative Urine Bilirubin Negative Urine Urobilinogen Normal Ur Leukocyte Esterase 500 H Urine RBC 5-10 SEEN Urine WBC >100 SEEN Ur Squamous Epith Cells 0-5 SEEN Urine Bacteria 1+ Urine Mucus 0 SEEN Radiography Diagnostic Testing: Clinical Impression(s) from Imaging Studies Chest X-Ray 08/06/21 12:50 IMPRESSION: No interval change Electronically Signed: Sohan Martinez MD at 13:03 EST , Service support , Discharge Plan Dx/Rx/DC Orders Clinical Impression: Cerebral palsy, Sepsis, UTI (urinary tract infection) Disposition Disposition: Acute Care [facility]
[2021-08-06 12:35] LABS: Absolute Lymphocyte Count 0.78 X10^3/uL (0.83-4.51); Absolute Neutrophil Count 11.6 X10^3/uL (2.0-7.7); Basophil# 0.02 X10^3/uL; Basophil% 0.1 % (0-1); Eosinophil# 0.08 X10^3/uL; Eosinophils% 0.6 % (0-5); Hematocrit 34.7 % (37-47); Hemoglobin 11.8 g/dL (12.0-15.0); Lymphocyte # 0.78 X10^3/ul (0.83-4.51); Lymphocyte % 5.6 % (19-41); Mean Corpuscular Hgb 30.8 pg (27.0-32.0); Mean Corpuscular Volume 90.6 fL (81-99); Mean Platelet Vol. 10.1 fl (6.2-12.0); Monocyte# 1.42 X10^3/uL; Monocyte% 10.2 % (0-10); NRBC Flagged by Analyzer 0 % (0-5); Neutrophil # 11.58 X10^3/uL (2.7-7.7); Neutrophil % 82.9 % (47-70); Platelet Count 272 K/mm3 (150-450); RBC Distribution Width CV 12.5 % (11.6-14.6); RBC Distribution Width SD 41.1 fl (35.1-43.9); Red Blood Count 3.83 M/mm3 (4.2-5.4)
[2021-08-06 12:47] LABS: International Normalized Ratio 1.1; Prothrombin Time (Protime)PT. 13.8 SECONDS (11.7-14.9)
--- NOTE | 2021-08-06 12:50 | RAD_ITS ---
STUDY: X-RAY CHEST REASON FOR EXAM: Female, 31 years old. Fever TECHNIQUE: Single AP portable view of the chest. COMPARISON: 06/25/2021 FINDINGS: A tracheostomy tube is noted. The lungs are underexpanded, no superimposed process. Normal size heart. Normal mediastinum and glenn. Normal visualized pulmonary arteries. Normal visualized aortic arch and descending thoracic aorta. Scoliosis of the thoracic spine with vertebral angelo. Normal visualized ribs, clavicles, and shoulders. There is no demonstrated abnormality of the visualized soft tissue structures of the upper abdomen. RAD/Chest 1 View (Portable) IMPRESSION: No interval change Electronically Signed: Sohan Martinez MD at 13:03 EST , Service support ,
[2021-08-06 12:52] LABS: ALB/GLOB Ratio 0.7 RATIO (0.9-2.4); AST(SGOT) 26 U/L (15-37); Alanine Aminotransfer ALT/SGPT 29 U/L (13-56); Albumin, Serum 3.5 g/dL (3.2-5.0); Alkaline Phosphatase 125 U/L (45-117); Anion Gap 10 (5-15); BUN 6 mg/dL (7-18); BUN/Creat Ratio 10.8 RATIO (10-20); Calcium,Total 9.6 mg/dL (8.5-10.1); Chloride 95 mmol/L (98-107); Creatinine, Serum 0.55 mg/dL (0.55-1.02); EST Glomerular Filtration Rate 136 mL/min (>60); Est Glom Filt Rate - Afr Amer 164 mL/min (>60); Estimated Creatinine Clearance 142.02 ml/min; Globulin 4.8 g/dL (2.2-4.2); Glucose 127 mg/dL (74-106); Protein, Total 8.3 g/dL (6.4-8.2); Sodium Level 133 mmol/L (136-145)
[2021-08-06 13:06] LABS: Lactic Acid 3.6 mmol/L (0.4-1.9)
[2021-08-06 13:45] LABS: Mucous, Urine 0 SEEN /hpf (<or=2+)
[2021-08-06 13:50] LABS: Color, Urine Yellow (Yellow); Glucose, Dipstick Normal (Normal); Ketone-Dipstick Negative (Negative); Leukocyte Esterase-Dipstick 500 /ul (Negative); Nitrite-Dipstick Negative (Negative); Occult Blood-Urine 150 /ul (Negative); Protein-Dipstick 30 mg/dl (Negative); Specific Gravity, Urine 1.015 (1.002-1.030); Urine Bilirubin Dipstick Negative (Negative); Urine Clarity Cloudy (Clear); Urine Urobilinogen Normal (Normal)
[2021-08-06 13:57] LABS: Bacteria 1+ /hpf (None Seen); Red Blood Cells-Urine 5-10 SEEN /hpf (0-5); Squamous Epithelial Cells - UA 0-5 SEEN /hpf (5-10); White Blood Cells >100 SEEN /hpf (0-5)
--- NOTE | 2021-08-06 14:46 | HP.PCM.HOS_ITS ---
HPI - General General Date of Service: 08/06/21 Chief Complaint: Fever, tachycardia, recent abx completion. HPI Narrative The patient is a 31 y/o F w/ PMHx: Chronic normocytic anemia, Chronic hyponatremia, Diabetes mellitus type II, Hx C-difficile, GERD s/p Jorje fundoplication, Cerebral palsy with spastic hemiplegia with seizure disorder with associated MRDD s/p spinal fusion with hardware, tracheostomy, GT, baclofen pump hx, recent admission 07/21/21-07/24/21 per Urology with cystoscopy, ureteroscopy laser lithotripsy and stenting although complicated by initial difficulty ventilating with need for tracheostomy and cuff readjustment prior to return to the OR discharged on 7 additional days of IV antibiotic therapy via midline which was removed the day prior to current presentation secondary to completion of antibiotic therapy on 07/24/2021 from the 06/2021 admission w/ at that time ESBL UTI treated with ertapenem per Dr. Bettencourt direction with most recently admission urine culture 07/22/2021 unremarkable with no growth which is why Dr. Anaya proceeded with the intervention who now represents to the [facility] ED on 08/06/21 history of completion of antibiotic therapies on Wednesday and following this over the last 48 hours initially fatigue, malaise, less interactiveness than prior with eventually onset fevers and restlessness on day of presentation as well as tachycardia prompting ED evaluation. In the ED included T1 100.3, heart rate 131, BP 135/107, respiratory rate 20, mechanically ventilated with 100% pulse oximeter, CBC with WC 14, hemoglobin 11.8, platelet 272 with left shift and lymphopenia, unremarkable coags, CMP with sodium 133, chloride 95, glucose 127, lactic acid 3.6, unremarkable hepatic profile aside alk phos 125, chest x-ray with no acute cardiopulmonary findings, urinalysis with negative nitrite, 500 leukocyte esterase, urine WBCs greater than 100, urine bacteria 1+, blood culture x2 pending per ED, urine culture pending per ED. Per discussion with urology also requested that ED Place Saba catheter and KUB obtained to evaluate stent. [facility] Medical History Allergic rhinitis due to other allergen Amenorrhea Bedbound Bronchiectasis without acute exacerbation Bronchitis Cerebral palsy Chronic respiratory failure Diabetes Hyperglycemia Irregular menstrual cycle Kidney stones Lactic acid acidosis Mild mental retardation Neuromuscular scoliosis Pancreatitis Paraplegia PICC (peripherally inserted central catheter) in place Pneumonia Recurrent UTI Renal calculus or stone Respiratory acidosis Seizure Severe sepsis Skin tag of vaginal mucosa 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 Thrush Urinary tract infection due to extended-spectrum beta lactamase (ESBL) producing Escherichia coli Visual disturbance Vitamin D deficiency Home Medications baclofen 30 mg GT TID 09/02/13 [History Last Taken 07/20/21] oxcarbazepine 300 mg/5 mL (60 mg/mL) oral suspension 8 ml GT BID ml 08/28/17 [History Last Taken 07/21/21] insulin aspart U-100 100 unit/mL (3 mL) subcutaneous pen 8 units SQ 4X/DAY 09/20/20 [History Last Taken 07/20/21] ferrous sulfate 60 mg FEEDING TUBE DAILY 02/28/21 [History Last Taken 07/20/21] cholecalciferol (vitamin D3) 50 mcg FEEDING TUBE DAILY 05/20/21 [History Last Taken 07/20/21] diazepam 5 mg FEEDING TUBE DAILY@1400 05/20/21 [History Last Taken 07/20/21] diazepam 7 mg FEEDING TUBE BID 05/20/21 [History Last Taken 07/20/21] methenamine hippurate [Hiprex] 1 g FEEDING TUBE BID 05/20/21 [History Last Taken 07/20/21] Daily Fiber (psyllium-aspart) 1 packet G-TUBE DAILY PRN PRN #0 ea 05/24/21 [Rx Last Taken 07/20/21] Vitamin C 10 ml PO DAILY 06/25/21 [History Last Taken 07/20/21] [place] Multi Vitamin Plus 10 ml PO DAILY 06/25/21 [History Last Taken 07/20/21] acidophilus-pectin, citrus 1 tab G-TUBE DAILY 06/25/21 [History Last Taken 07/20/21] levalbuterol HCl [Xopenex] 1.25 mg INHALATION Q20M PRN 06/25/21 [History Last Taken 07/20/21] docusate sodium 60 mg FEEDING TUBE DAILY 07/21/21 [History Last Taken Unknown] Allergy/AdvReac Type Severity Reaction Status Date / Time linezolid Allergy Severe Other - Verified 08/06/21 12:18 seizure & coma vancomycin Allergy Severe Other - Verified 08/06/21 12:18 kidney failure tobramycin Allergy Intermediate Other - Verified 08/06/21 12:18 turned beet red nafcillin Allergy Mild Rash Verified 08/06/21 12:18 benzoin Allergy Unknown Rash Verified 08/06/21 12:18 milk Allergy Unknown Other Verified 08/06/21 12:18 soy Allergy Unknown Other Verified 08/06/21 12:18 polyethylene glycol 3350 AdvReac Unknown Hives Verified 08/06/21 12:18 [From Miralax] Family History Grandmother Cancer maternal Other Adopted Surgical History derotatox ostomies eyes straightened Gastrostomy tube in place H/O spinal fusion Presence of intrathecal baclofen pump rods to back Status post Jorje fundoplication surgery on gland under tongue tendonatomies Tracheostomy status Social History household members: other details: Mother and is vent dependent housing: house Smoking Status: Never smoker second hand exposure: No alcohol intake: never substance use type: does not use ROS ROS Narrative Per Mother present: Admission Review of Systems: CONSTITUTIONAL: No weight loss, + fever, weakness or fatigue. HEENT: Unchanged oral/trach secretions, + flushed face. Eyes: No visual loss, blurred vision, double vision or yellow sclerae. Ears, Nose, Throat: No hearing loss, sneezing, congestion, runny nose or sore throat. SKIN: No rash or itching, lesions, wounds. CARDIOVASCULAR: No chest pain, chest pressure or chest discomfort, palpitations, edema, orthopnea, syncopal events. RESPIRATORY: No increased respirator rate or evidence of distress, no recent marked cough, no increased secretions, no wheezing, no hemoptysis. GASTROINTESTINAL: No nausea, vomiting or diarrhea, abdominal pain, melena, BRBPR. GENITOURINARY: No dysuria, frequency, urgency or retention. NEUROLOGICAL: + Chronic debility with chronic lower extremity muscle wasting, contractures, cerebral palsy with spastic hemiplegia. No headache, dizziness, syncope, change in bowel/bladder, seizure. MUSCULOSKELETAL: No muscle, back pain, joint pain or stiffness. HEMATOLOGIC: No anemia, bleeding or bruising. LYMPHATICS: No enlarged nodes. No history of splenectomy. PSYCHIATRIC: No history of depression or anxiety. ENDOCRINOLOGIC: No reports of sweating, cold or heat intolerance. No polyuria or polydipsia. ALLERGIES: No history of asthma, hives, eczema or rhinitis. Review of Systems ROS Unobtainable: due to mental condition Vital Signs Vital Signs Vital Signs: 08/06/21 12:10 08/06/21 12:17 08/06/21 12:20 Temperature 100.4 F H 100.3 F H Temperature Source Temporal Temporal Pulse Rate 132 H 135 H Respiratory Rate 24 H 18 Respiratory Effort Normal Respiratory Pattern Normal Blood Pressure 141/98 H 130/91 H Blood Pressure Mean 112 104 Pulse Ox 100 100 Oxygen Delivery Method Mechanical Ventilator Mechanical Ventilator 08/06/21 12:30 08/06/21 13:17 08/06/21 13:31 Temperature 100.1 F H 100.3 F H 100.3 F H Temperature Source Temporal Temporal Temporal Pulse Rate 133 H 131 H Respiratory Rate 22 H 20 H Respiratory Effort Respiratory Pattern Blood Pressure 130/91 H 135/107 H Blood Pressure Mean 104 116 Pulse Ox 100 100 Oxygen Delivery Method Mechanical Ventilator Mechanical Ventilator Weight Weight: 133 lb 13.129 oz Body Mass Index (BMI) 32.2 Physical Exam Narrative Physical Examination: General: Non-verbal, awake, alert, nonverbal, makes facial gestures during evaluation, laying in the ED bed, no obvious distress but flushed and less interactive than her baseline. Skin: Flushed color, turgor, no icterus, cyanosis. HEENT: AT/NC, EOMI, PERRLA, dry MM, normal baseline oral secretions, trach in place with no obvious paratracheal irritation, no carotid bruits or JVD noted; however, difficult examination given thickened neck. Lungs: Mildly diminished breath sounds, greater bilateral bases but no obvious of any distress, trach in place, vent settings stable, no rales, ronchi or wheezing. Heart: Tachycardic with regular rhythm; no gallop, rub audible. Abdomen: soft, NTTP, G-tube in place, mild distention which is baseline, normalized bowel sounds, no obvious HSM. Extremities: no cyanosis, clubbing, or edema, chronic contractures, quadriplegia. Neurological: patient awake, alert, oriented noted; cognitive function baseline intact although more fatigued appearing; pupils equally reactive to light and accomodation; patient with spastic quadriplegia with cerebral palsy with chronic debilities, contractures, strength at baseline although significantly severely global decreased baseline. Psychiatric: affect appears fatigued, less interactive than baseline, no acute evidence of depressive or anxiety feelings. Results Lab / Micro Data Result Diagrams: 08/06/21 12:25 08/06/21 12:25 Labs: Laboratory Results - last 24 hr 08/06/21 12:25: WBC 14.0 H, RBC 3.83 L, Hgb 11.8 L, Hct 34.7 L, MCV 90.6, MCH 30.8, MCHC 34.0, RDW Std Deviation 41.1, RDW Coeff of Anne 12.5, Plt Count 272, MPV 10.1, Immature Gran % (Auto) 0.600, Neut % (Auto) 82.9 H, Lymph % (Auto) 5.6 L, [place] % (Auto) 10.2 H, Eos % (Auto) 0.6, Baso % (Auto) 0.1, Absolute Neuts (auto) 11.6 H, Absolute Lymphs (auto) 0.78 L, Nucleated RBC % 0 08/06/21 12:25: PT 13.8, INR 1.1, APTT 29.0 08/06/21 12:25: Sodium 133 L, Potassium 4.0, Chloride 95 L, Carbon Dioxide 28.0, Anion Gap 10, BUN 6 L, Creatinine 0.55, Estim Creat Clear Calc 142.02, Est GFR (MDRD) Af Amer 164, Est GFR (MDRD) Non-Af 136, BUN/Creatinine Ratio 10.8, Glucose 127 H, Calcium 9.6, Total Bilirubin 0.20, AST 26, ALT 29, Alkaline Phosphatase 125 H, Total Protein 8.3 H, Albumin 3.5, Globulin 4.8 H, Albumin/Globulin Ratio 0.7 L 08/06/21 12:25: Lactic Acid 3.6 H* 08/06/21 13:25: Urine Color Yellow, Urine Clarity Cloudy, Urine pH 8.0, Ur Specific [place] 1.015, Urine Protein 30 H, Urine Glucose (UA) Normal, Urine Ketones Negative, Urine Occult Blood 150 H, Urine Nitrite Negative, Urine Bilirubin Negative, Urine Urobilinogen Normal, Ur Leukocyte Esterase 500 H, Urine RBC 5-10 SEEN, Urine WBC >100 SEEN, Ur Squamous Epith Cells 0-5 SEEN, Urine Bacteria 1+, Urine Mucus 0 SEEN Radiology Impression Chest X-Ray 08/06/21 12:50 IMPRESSION: No interval change Electronically Signed: oShan Martinez MD at 13:03 EST , Service support , Assessment & Plan Assessment/Plan (1) UTI (urinary tract infection): QUALIFIERS: Encounter type: initial encounter Indwelling urinary catheter type: unspecified Urinary tract infection type: catheter-associated UTI Qualified Code(s): T83.511A - Infection and inflammatory reaction due to indwelling urethral catheter, initial encounter; N39.0 - Urinary tract infection, site not specified PLAN: The patient is a 31 y/o F w/ PMHx: Chronic normocytic anemia, Chronic hyponatremia, Diabetes mellitus type II, Hx C-difficile, GERD s/p Jorje fundoplication, Cerebral palsy with spastic hemiplegia with seizure disorder with associated MRDD s/p spinal fusion with hardware, tracheostomy, GT, baclofen pump hx, recent admission 07/21/21-07/24/21 per Urology with cystoscopy, ureteroscopy laser lithotripsy and stenting who now represents to the [facility] ED on 08/06/21 history of completion of antibiotic therapies on Wednesday and following this over the last 48 hours initially fatigue, malaise, less interactiveness t alcantara prior with eventually onset fevers and restlessness on day of presentation as well as tachycardia prompting ED evaluation. 1. Acute Complicated UTI w/ Hx ESBL UTI with chronic self catheterization and Recent Ureteral Stenting with calculi w/ Acute Lactic Acidosis: Per SOFAq scoring patient does not meet Sepsis criteria despite presentation, no ABG obtained thus unable to perform SOFA. Will admit to the PCU, will continue ventilator management via trach, pending KUB given recent stent to assure proper placement per discussion with Dr. Anaya, saba placed in the ED, requested additional PIV as currently only 22 gauge in R foot, maintain on IV meropenem given history and resistance patterns with de-escalation/changes per ID discretion, Bld cx x 2, UCx pending per ED. 2. 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 3. Chronic Hyponatremia: Admission sodium 133, similar to baseline, judiciously hydrate given acute presentation #1, repeat CMP in AM. 4. Diabetes mellitus type II: Will continue home insulin regimen, continue TFs, accu checks q 6 hours w/ ISS. 5. DVT prophylaxis: SCDs, Lovenox. 6. CODE status: Patient HCPOA is her mother who is present. Discussed CODE status at length including difference between FULL code, DNR-CCA and DNR-CC status. Following discussions about the differences in these status, requested continutation of DNR-CCA, allowance of continued ventilation via tracheostomy but no CPR or use of paddles. Advanced Care Planning Face to Face Time: 16 minutes. Charges/Coding Visit Charges Inpatient E&M: 41848 Init Hosp L3 Procedures Hospitalists Procedures: 12293 Advncd Care Plan 30 Min
--- NOTE | 2021-08-06 14:57 | NURSING ---
HOSPITALIST FOR DR KEE
--- NOTE | 2021-08-06 15:04 | NURSING ---
PCU WHITE SEPSIS, UTI
--- NOTE | 2021-08-06 15:28 | RAD_ITS ---
STUDY: X-RAY - ABDOMEN/PELVIS REASON FOR EXAM: Female, 31 years old. Ureteral stent TECHNIQUE: Single AP view of the abdomen / pelvis. COMPARISON: None. FINDINGS: PEG tube noted Right JJ stent noted, multiple calcifications overlying the right renal shadow There is an unremarkable bowel gas pattern. There is no demonstrated free abdominal air. The visualized liver, spleen and kidneys are grossly normal in size and morphology. Normal soft tissue structures. There is a dextroscoliosis, bones are demineralized. Surgical angelo free of complication RAD/Abdomen Single View (Portable) IMPRESSION: Satisfactory appearance of a right-sided JJ stent Right nephrolithiasis PEG tube Electronically Signed: Sohan Martinez MD at 15:45 EST , Service support ,
[2021-08-06] MEDS: 0.9% Normal Saline 1,000 ML 125 ML IV (16:15)
[2021-08-06 16:31] LABS: Reflex Lactate? Y
[2021-08-06 16:41] LABS: Bedside Glucose 112 mg/dL (70-110)
--- NOTE | 2021-08-06 17:57 | PCM.CONS.GEN ---
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 Await culture results If no improvement by tomorrow, will plan to order further imaging to ensure no obstruction despite the stent being in good position I discussed with mom that we will plan to proceed as quickly as medically able in order to remove the remaining renal stones and the stent to prevent this from being an ongoing issue. This will not be within the next 2-3 weeks HPI Consult Data Date of Consult: 08/06/21 HPI Narrative HPI Narrative: MANDY RIVERA, is a 31 F who is a complex patient with multiple medical issues including cerebral palsy, diabetes, right staghorn calculus, recurrent urinary tract infections, chronic trach and vent. Mom reports that her urine has been clear for her cathing recently. She began to develop tachycardia upon awakening this morning and it progressed to a fever before lunch. She underwent right ureteroscopy with laser lithotripsy, basket extraction and stent change on 07/24/21, and was discharged home the same day without incident. [facility] Medical History Allergic rhinitis due to other allergen Amenorrhea Bedbound Bronchiectasis without acute exacerbation Bronchitis Cerebral palsy Chronic respiratory failure Diabetes Hyperglycemia Irregular menstrual cycle Kidney stones Lactic acid acidosis Mild mental retardation Neuromuscular scoliosis Pancreatitis Paraplegia PICC (peripherally inserted central catheter) in place Pneumonia Recurrent UTI Renal calculus or stone Respiratory acidosis Seizure Severe sepsis Skin tag of vaginal mucosa 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 Thrush Urinary tract infection due to extended-spectrum beta lactamase (ESBL) producing Escherichia coli Visual disturbance Vitamin D deficiency Home Medications baclofen 30 mg GT TID 09/02/13 [History Last Taken 08/05/21] oxcarbazepine 300 mg/5 mL (60 mg/mL) oral suspension 8 ml GT BID ml 08/28/17 [History Last Taken 08/05/21] insulin aspart U-100 100 unit/mL (3 mL) subcutaneous pen 8 units SQ 4X/DAY 09/20/20 [History Last Taken 08/05/21] ferrous sulfate 60 mg FEEDING TUBE DAILY 02/28/21 [History Last Taken 08/05/21] cholecalciferol (vitamin D3) 50 mcg FEEDING TUBE DAILY 05/20/21 [History Last Taken 08/05/21] diazepam 5 mg FEEDING TUBE DAILY@1400 05/20/21 [History Last Taken 08/05/21] diazepam 7 mg FEEDING TUBE BID 05/20/21 [History Last Taken 08/05/21] methenamine hippurate [Hiprex] 1 g FEEDING TUBE BID 05/20/21 [History Last Taken 08/05/21] Daily Fiber (psyllium-aspart) 1 packet G-TUBE DAILY PRN PRN #0 ea 05/24/21 [Rx Last Taken 08/05/21] Vitamin C 10 ml PO DAILY 06/25/21 [History Last Taken 08/05/21] [place] Multi Vitamin Plus 10 ml PO DAILY 06/25/21 [History Last Taken 08/05/21] acidophilus-pectin, citrus 1 tab G-TUBE DAILY 06/25/21 [History Last Taken 08/05/21] levalbuterol HCl [Xopenex] 1.25 mg INHALATION Q12H 06/25/21 [History Last Taken 08/05/21] docusate sodium 60 mg FEEDING TUBE DAILY 07/21/21 [History Last Taken 08/05/21] levalbuterol HCl 1.25 mg INHALATION Q4H PRN 08/06/21 [History Last Taken Unknown] Allergy/AdvReac Type Severity Reaction Status Date / Time linezolid Allergy Severe Other - Verified 08/06/21 12:18 seizure & coma vancomycin Allergy Severe Other - Verified 08/06/21 12:18 kidney failure tobramycin Allergy Intermediate Other - Verified 08/06/21 12:18 turned beet red nafcillin Allergy Mild Rash Verified 08/06/21 12:18 benzoin Allergy Unknown Rash Verified 08/06/21 12:18 milk Allergy Unknown Other Verified 08/06/21 12:18 soy Allergy Unknown Other Verified 08/06/21 12:18 polyethylene glycol 3350 AdvReac Unknown Hives Verified 08/06/21 12:18 [From Miralax] Family History Grandmother Cancer maternal Other Adopted Surgical History derotatox ostomies eyes straightened Gastrostomy tube in place H/O spinal fusion Presence of intrathecal baclofen pump rods to back Status post Jorje fundoplication surgery on gland under tongue tendonatomies Tracheostomy status Social History household members: other details: Mother and is vent dependent housing: house Smoking Status: Never smoker second hand exposure: No alcohol intake: never substance use type: does not use ROS ROS Narrative History comes from mom who is present at bedside. Patient is nonverbal. She was acting normal until this morning when her heart rate raised to 100 and shortly thereafter she developed a temperature. No other new or abnormal findings per mom. Physical Exam Narrative Patient is lying, resting in bed. She appears flushed more than normal. Her tracheostomy appears to be well-positioned. Abdomen is soft. Her Owens catheter is in and draining clear yellow urine. Lab / Micro Data Result Diagrams: 08/06/21 12:25 08/06/21 12:25 Labs: Laboratory Results - last 24 hr 08/06/21 12:25: WBC 14.0 H, RBC 3.83 L, Hgb 11.8 L, Hct 34.7 L, MCV 90.6, MCH 30.8, MCHC 34.0, RDW Std Deviation 41.1, RDW Coeff of Anne 12.5, Plt Count 272, MPV 10.1, Immature Gran % (Auto) 0.600, Neut % (Auto) 82.9 H, Lymph % (Auto) 5.6 L, [place] % (Auto) 10.2 H, Eos % (Auto) 0.6, Baso % (Auto) 0.1, Absolute Neuts (auto) 11.6 H, Absolute Lymphs (auto) 0.78 L, Nucleated RBC % 0 08/06/21 12:25: PT 13.8, INR 1.1, APTT 29.0 08/06/21 12:25: Sodium 133 L, Potassium 4.0, Chloride 95 L, Carbon Dioxide 28.0, Anion Gap 10, BUN 6 L, Creatinine 0.55, Estim Creat Clear Calc 142.02, Est GFR (MDRD) Af Amer 164, Est GFR (MDRD) Non-Af 136, BUN/Creatinine Ratio 10.8, Glucose 127 H, Calcium 9.6, Total Bilirubin 0.20, AST 26, ALT 29, Alkaline Phosphatase 125 H, Total Protein 8.3 H, Albumin 3.5, Globulin 4.8 H, Albumin/Globulin Ratio 0.7 L 08/06/21 12:25: Lactic Acid 3.6 H* 08/06/21 13:25: Urine Color Yellow, Urine Clarity Cloudy, Urine pH 8.0, Ur Specific [place] 1.015, Urine Protein 30 H, Urine Glucose (UA) Normal, Urine Ketones Negative, Urine Occult Blood 150 H, Urine Nitrite Negative, Urine Bilirubin Negative, Urine Urobilinogen Normal, Ur Leukocyte Esterase 500 H, Urine RBC 5-10 SEEN, Urine WBC >100 SEEN, Ur Squamous Epith Cells 0-5 SEEN, Urine Bacteria 1+, Urine Mucus 0 SEEN 08/06/21 16:35: POC Glucose 112 H Radiology Impression Chest X-Ray 08/06/21 12:50 IMPRESSION: No interval change Electronically Signed: Sohan Martinez MD at 13:03 EST , Service support , KUB X-Ray 08/06/21 15:28 IMPRESSION: Satisfactory appearance of a right-sided JJ stent Right nephrolithiasis PEG tube Electronically Signed: Sohan Martinez MD at 15:45 EST , Service support ,
[2021-08-06 18:03] LABS: Lactic Acid 0.9 mmol/L (0.4-1.9)
--- NOTE | 2021-08-06 18:19 | PCS.PANDOC ---
PANDEMIC DOCUMENTATION INITIATED: Date: 04/28/2021 Time: 190
[2021-08-06] MEDS: Albuterol 2.5 MG/3 ML VIAL.NEB. INHALATION (18:54)
[2021-08-06] MEDS: Baclofen 10 MG Tablet 30 MG GT (21:16)
[2021-08-06] MEDS: diazePAM 2 MG Tablet GT (21:16)
[2021-08-06] MEDS: Methenamine Hippurate 1 GM Tablet PO (21:16)
[2021-08-06] MEDS: diazePAM 5 MG Tablet GT (21:17)
[2021-08-06] MEDS: Acetaminophen 650 MG/20 ML UDC GT (21:20)
[2021-08-07] VITALS (13 sets, daily range): BP systolic 97–127; BP diastolic 48–81; PULSE 70–128; RESP 16–24; TEMP 37.7–38.6; O2SAT 95–100
[2021-08-07 00:20] LABS: Bedside Glucose 136 mg/dL (70-110)
[2021-08-07] MEDS: 0.9% Normal Saline 1,000 ML 125 ML IV ×2 (03:24→17:33)
[2021-08-07] MEDS: Baclofen 10 MG Tablet 30 MG GT ×3 (05:36→21:42)
[2021-08-07 05:41] LABS: Bedside Glucose 104 mg/dL (70-110)
[2021-08-07 06:53] LABS: Absolute Lymphocyte Count 0.92 X10^3/uL (0.83-4.51); Absolute Neutrophil Count 6.9 X10^3/uL (2.0-7.7); Basophil# 0.03 X10^3/uL; Basophil% 0.3 % (0-1); Eosinophil# 0.09 X10^3/uL; Hemoglobin 8.8 g/dL (12.0-15.0); Lymphocyte # 0.92 X10^3/ul (0.83-4.51); Mean Corp Hgb Conc 32.6 g/dL (32-36); Mean Corpuscular Hgb 30.8 pg (27.0-32.0); Mean Corpuscular Volume 94.4 fL (81-99); Mean Platelet Vol. 9.9 fl (6.2-12.0); Monocyte# 1.26 X10^3/uL; Monocyte% 13.7 % (0-10); NRBC Flagged by Analyzer 0 % (0-5); Neutrophil # 6.85 X10^3/uL (2.7-7.7); Neutrophil % 74.6 % (47-70); Platelet Count 218 K/mm3 (150-450); RBC Distribution Width SD 44.9 fl (35.1-43.9); Red Blood Count 2.86 M/mm3 (4.2-5.4); White Blood Count 9.2 K/mm3 (4.4-11.0)
--- NOTE | 2021-08-07 06:57 | PN.HOSP_ITS ---
Subjective Subjective Patient significantly improved from day prior with no acute events overnight per family and staff report. Patient does have low-grade temperature with Tylenol alterations made. She is more interactive and more at her baseline. Discussed with urology following their evaluation day prior and on day of current eval uation with plan for continued antibiotic therapy, awaiting ID input and if cultures repeat remain negative she notes intention likely in the next several weeks to take her back to the OR for lithotripsy. Owens continued in place per her recommendation. Patient without evidence of chills, nausea, emesis, abdominal pain, chest pain or worsening dyspnea. Objective Data Objective Data Vital Signs: Vital Signs Temp Pulse Resp BP Pulse Ox 100 F H 70 16 97/48 L 100 08/07/21 02:39 08/07/21 04:00 08/07/21 02:39 08/07/21 02:39 08/07/21 02:39 Oxygen Flow Rate (L/min) 3 Oxygen Delivery Method Bi-pap Weight: 96 lb 1.592 oz Body Mass Index (BMI) 22.3 Intake & Output: Intake and Output for Last 24 Hours 08/05/21 08/06/21 08/07/21 23:59 23:59 23:59 Intake Total 955.42 / 955.42 695.00 / 695.00 Output Total 650 / 850 500 / 500 Balance 305.42 / 105.42 195.00 / 195.00 Lab / Micro Data Result Diagrams: 08/07/21 06:40 08/07/21 06:40 Labs: Laboratory Results - last 24 hr 08/06/21 12:25: WBC 14.0 H, RBC 3.83 L, Hgb 11.8 L, Hct 34.7 L, MCV 90.6, MCH 30.8, MCHC 34.0, RDW Std Deviation 41.1, RDW Coeff of Anne 12.5, Plt Count 272, MPV 10.1, Immature Gran % (Auto) 0.600, Neut % (Auto) 82.9 H, Lymph % (Auto) 5.6 L, [place] % (Auto) 10.2 H, Eos % (Auto) 0.6, Baso % (Auto) 0.1, Absolute Neuts (auto) 11.6 H, Absolute Lymphs (auto) 0.78 L, Nucleated RBC % 0 08/06/21 12:25: PT 13.8, INR 1.1, APTT 29.0 08/06/21 12:25: Sodium 133 L, Potassium 4.0, Chloride 95 L, Carbon Dioxide 28.0, Anion Gap 10, BUN 6 L, Creatinine 0.55, Estim Creat Clear Calc 142.02, Est GFR (MDRD) Af Amer 164, Est GFR (MDRD) Non-Af 136, BUN/Creatinine Ratio 10.8, Glucose 127 H, Calcium 9.6, Total Bilirubin 0.20, AST 26, ALT 29, Alkaline Phosphatase 125 H, Total Protein 8.3 H, Albumin 3.5, Globulin 4.8 H, Albumin/Globulin Ratio 0.7 L 08/06/21 12:25: Lactic Acid 3.6 H* 08/06/21 13:25: Urine Color Yellow, Urine Clarity Cloudy, Urine pH 8.0, Ur Specific [place] 1.015, Urine Protein 30 H, Urine Glucose (UA) Normal, Urine Ketones Negative, Urine Occult Blood 150 H, Urine Nitrite Negative, Urine Bilirubin Negative, Urine Urobilinogen Normal, Ur Leukocyte Esterase 500 H, Urine RBC 5-10 SEEN, Urine WBC >100 SEEN, Ur Squamous Epith Cells 0-5 SEEN, Urine Bacteria 1+, Urine Mucus 0 SEEN 08/06/21 16:35: POC Glucose 112 H 08/06/21 17:30: Lactic Acid 0.9 08/07/21 00:12: POC Glucose 136 H 08/07/21 05:34: POC Glucose 104 08/07/21 06:40: WBC 9.2, RBC 2.86 L, Hgb 8.8 L, Hct 27.0 L, MCV 94.4, MCH 30.8, MCHC 32.6, RDW Std Deviation 44.9 H, RDW Coeff of Anne 13.0, Plt Count 218, MPV 9.9, Immature Gran % (Auto) 0.400, Neut % (Auto) 74.6 H, Lymph % (Auto) 10.0 L, [place] % (Auto) 13.7 H, Eos % (Auto) 1.0, Baso % (Auto) 0.3, Absolute Neuts (auto) 6.9, Absolute Lymphs (auto) 0.92, Nucleated RBC % 0 Radiography Diagnostic Testing: Radiology Impression Chest X-Ray 08/06/21 12:50 IMPRESSION: No interval change Electronically Signed: Sohan Martinez MD at 13:03 EST , Service support , KUB X-Ray 08/06/21 15:28 IMPRESSION: Satisfactory appearance of a right-sided JJ stent Right nephrolithiasis PEG tube Electronically Signed: Sohan Martinez MD at 15:45 EST , Service support , Physical Exam Narrative Physical Examination: General: Non-verbal, awake, alert, nonverbal, patient more interactive and at her baseline than previous exam, making several facial gestures and more prone to smiling, less flushed, no acute distress. Skin: Normalized color, normal turgor, no icterus, no cyanosis. HEENT: AT/NC, EOMI, PERRLA, dry MM, normal baseline oral secretions, trach in place with no obvious paratracheal irritation, no carotid bruits or JVD noted; however, difficult examination given thickened neck. Lungs: Mildly diminished breath sounds, greater bilateral bases but no obvious of any distress, trach in place, vent settings stable, no rales, ronchi or wheezing. Heart: Improved regular rate with regular rhythm; no gallop, rub audible. Abdomen: soft, NTTP, G-tube in place, mild chronic unchanged distention, normalized bowel sounds. Extremities: no cyanosis, clubbing, or edema, chronic contractures, quadriplegia. Neurological: patient awake, alert, oriented noted; cognitive function improved, more interactive, at baseline currently; pupils equally reactive to light and accommodation; patient with spastic quadriplegia with cerebral palsy with chronic debilities, contractures, strength at baseline although significantly severely global decrease baseline. Psychiatric: affect appears more interactive, less fatigued than day prior, more at her baseline, no acute evidence of depressive or anxiety feelings. Assessment & Plan Assessment/Plan (1) UTI (urinary tract infection): QUALIFIERS: Encounter type: initial encounter Indwelling urinary catheter type: unspecified Urinary tract infection type: catheter-associated UTI Qualified Code(s): T83.511A - Infection and inflammatory reaction due to indwelling urethral catheter, initial encounter; N39.0 - Urinary tract infection, site not specified (2) Renal calculus or stone: PLAN: The patient is a 31 y/o F w/ PMHx: Chronic normocytic anemia, Chroni c hyponatremia, Diabetes mellitus type II, Hx C-difficile, GERD s/p Jorje fundoplication, Cerebral palsy with spastic hemiplegia with seizure disorder with associated MRDD s/p spinal fusion with hardware, tracheostomy, GT, baclofen pump hx, recent admission 07/21/21-07/24/21 per Urology with cystoscopy, ureteroscopy laser lithotripsy and stenting who now represents to the [facility] ED on 08/06/21 history of completion of antibiotic therapies on Wednesday and over 48 hours increased fatigue, malaise, less interactive with fevers and tachycardia. 1. Acute Complicated UTI w/ Hx ESBL UTI with chronic self catheterization and Recent Ureteral Stenting with calculi w/ Acute Lactic Acidosis: Per SOFAq sco ring patient does not meet Sepsis criteria despite presentation, no ABG obtained thus unable to perform SOFA. Patient mated to PCU, maintained on her chronic vent settings with trach care routine, KUB with satisfactory appearance of patient's right-sided JJ stent with right nephrolithiasis evident, continued on IV meropenem pending infectious disease evaluation, blood culture and urine culture pending per ED. Urology following and recommended Owens catheter placement which was placed upon admission, continued antibiotics as well judicious fluids, awaiting urine and blood cultures and pending these will make future plan for return in the next several weeks for addressing patient's right-sided nephrolithiasis as well as potential stent removal. 2. 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 3. Chronic Hyponatremia: Admission sodium 133, similar to baseline, judiciously hydrate given acute presentation #1, repeat CMP in AM. 4. Diabetes mellitus type II: Will continue home insulin regimen, continue TFs, accu checks q 6 hours w/ ISS. 5. DVT prophylaxis: SCDs, Lovenox. 6. CODE status: Patient OVIDIO is her mother who is present. DNR-CCA, allowance of continued ventilation via tracheostomy but no CPR or use of paddles. Charges/Coding Visit Charges Inpatient E&M: 87592 Subs Hosp L2
[2021-08-07] MEDS: Albuterol 2.5 MG/3 ML VIAL.NEB. INHALATION ×2 (07:17→18:54)
[2021-08-07] MEDS: Budesonide Respules 0.5 MG/2 ML AMPUL.NEB. INHALATION ×2 (07:17→18:54)
[2021-08-07 08:07] LABS: ALB/GLOB Ratio 0.6 RATIO (0.9-2.4); AST(SGOT) 14 U/L (15-37); Alanine Aminotransfer ALT/SGPT 20 U/L (13-56); Albumin, Serum 2.4 g/dL (3.2-5.0); Alkaline Phosphatase 86 U/L (45-117); Anion Gap 3 (5-15); BUN 6 mg/dL (7-18); BUN/Creat Ratio 22.9 RATIO (10-20); Calcium,Total 8.3 mg/dL (8.5-10.1); Chloride 109 mmol/L (98-107); Creatinine, Serum 0.26 mg/dL (0.55-1.02); EST Glomerular Filtration Rate 322 mL/min (>60); Est Glom Filt Rate - Afr Amer 389 mL/min (>60); Estimated Creatinine Clearance 215.74 ml/min; Globulin 3.9 g/dL (2.2-4.2); Glucose 102 mg/dL (74-106); Potassium 3.5 mmol/L (3.5-5.1); Protein, Total 6.3 g/dL (6.4-8.2); Sodium Level 140 mmol/L (136-145)
--- NOTE | 2021-08-07 08:24 | PCM.PN.GU ---
Subjective Subjective Looking better this morning, alert and smiling. No issues overnight. Objective Data Objective Data Vital Signs: Vital Signs Temp Pulse Resp BP Pulse Ox 98.5 F 96 16 127/81 H 99 08/07/21 08:12 08/07/21 08:12 08/07/21 08:12 08/07/21 08:12 08/07/21 08:12 Oxygen Flow Rate (L/min) 3 Oxygen Delivery Method Mechanical Ventilator Weight: 43.59 kg Body Mass Index (BMI) 22.3 Intake & Output: Intake and Output for Last 24 Hours 08/05/21 08/06/21 08/07/21 23:59 23:59 23:59 Intake Total 955.42 / 955.42 695.00 / 695.00 Output Total 650 / 850 500 / 500 Balance 305.42 / 105.42 195.00 / 195.00 Lab / Micro Data Result Diagrams: 08/07/21 06:40 08/07/21 06:40 Labs: Laboratory Results - last 24 hr 08/06/21 12:25: WBC 14.0 H, RBC 3.83 L, Hgb 11.8 L, Hct 34.7 L, MCV 90.6, MCH 30.8, MCHC 34.0, RDW Std Deviation 41.1, RDW Coeff of Anne 12.5, Plt Count 272, MPV 10.1, Immature Gran % (Auto) 0.600, Neut % (Auto) 82.9 H, Lymph % (Auto) 5.6 L, [place] % (Auto) 10.2 H, Eos % (Auto) 0.6, Baso % (Auto) 0.1, Absolute Neuts (auto) 11.6 H, Absolute Lymphs (auto) 0.78 L, Nucleated RBC % 0 08/06/21 12:25: PT 13.8, INR 1.1, APTT 29.0 08/06/21 12:25: Sodium 133 L, Potassium 4.0, Chloride 95 L, Carbon Dioxide 28.0, Anion Gap 10, BUN 6 L, Creatinine 0.55, Estim Creat Clear Calc 142.02, Est GFR (MDRD) Af Amer 164, Est GFR (MDRD) Non-Af 136, BUN/Creatinine Ratio 10.8, Glucose 127 H, Calcium 9.6, Total Bilirubin 0.20, AST 26, ALT 29, Alkaline Phosphatase 125 H, Total Protein 8.3 H, Albumin 3.5, Globulin 4.8 H, Albumin/Globulin Ratio 0.7 L 08/06/21 12:25: Lactic Acid 3.6 H* 08/06/21 13:25: Urine Color Yellow, Urine Clarity Cloudy, Urine pH 8.0, Ur Specific [place] 1.015, Urine Protein 30 H, Urine Glucose (UA) Normal, Urine Ketones Negative, Urine Occult Blood 150 H, Urine Nitrite Negative, Urine Bilirubin Negative, Urine Urobilinogen Normal, Ur Leukocyte Esterase 500 H, Urine RBC 5-10 SEEN, Urine WBC >100 SEEN, Ur Squamous Epith Cells 0-5 SEEN, Urine Bacteria 1+, Urine Mucus 0 SEEN 08/06/21 16:35: POC Glucose 112 H 08/06/21 17:30: Lactic Acid 0.9 08/07/21 00:12: POC Glucose 136 H 08/07/21 05:34: POC Glucose 104 08/07/21 06:40: WBC 9.2, RBC 2.86 L, Hgb 8.8 L, Hct 27.0 L, MCV 94.4, MCH 30.8, MCHC 32.6, RDW Std Deviation 44.9 H, RDW Coeff of Anne 13.0, Plt Count 218, MPV 9.9, Immature Gran % (Auto) 0.400, Neut % (Auto) 74.6 H, Lymph % (Auto) 10.0 L, [place] % (Auto) 13.7 H, Eos % (Auto) 1.0, Baso % (Auto) 0.3, Absolute Neuts (auto) 6.9, Absolute Lymphs (auto) 0.92, Nucleated RBC % 0 08/07/21 06:40: Sodium 140, Potassium 3.5, Chloride 109 H, Carbon Dioxide 28.0, Anion Gap 3 L, BUN 6 L, Creatinine 0.26 L, Estim Creat Clear Calc 215.74, Est GFR (MDRD) Af Amer 389, Est GFR (MDRD) Non-Af 322, BUN/Creatinine Ratio 22.9 H, Glucose 102, Calcium 8.3 L, Total Bilirubin 0.10 L, AST 14 L, ALT 20, Alkaline Phosphatase 86, Total Protein 6.3 L, Albumin 2.4 L, Globulin 3.9, Albumin/Globulin Ratio 0.6 L Radiography Diagnostic Testing: Radiology Impression Chest X-Ray 08/06/21 12:50 IMPRESSION: No interval change Electronically Signed: Sohan Martinez MD at 13:03 EST , Service support , KUB X-Ray 08/06/21 15:28 IMPRESSION: Satisfactory appearance of a right-sided JJ stent Right nephrolithiasis PEG tube Electronically Signed: Sohan Martinez MD at 15:45 EST , Service support , Physical Exam Narrative Alert, comfortable and happy. Abdomen is soft nontender nondistended. Owens catheter draining clear yellow urine. Assessment & Plan Assessment/Plan (1) Sepsis: (2) UTI (urinary tract infection): QUALIFIERS: Urinary tract infection type: catheter-associated UTI Indwelling urinary catheter type: unspecified Encounter type: initial encounter Qualified Code(s): T83.511A - Infection and inflammatory reaction due to indwelling urethral catheter, initial encounter; N39.0 - Urinary tract infection, site not specified (3) Renal calculus or stone: (4) Diabetes: QUALIFIERS: Diabetes mellitus type: type 2 Diabetes mellitus prison insulin use: with prison use Diabetes mellitus complication status: with hyperglycemia Qualified Code(s): E11.65 - Type 2 diabetes mellitus with hyperglycemia; 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
[2021-08-07] MEDS: diazePAM 2 MG Tablet GT ×2 (08:28→21:49)
[2021-08-07] MEDS: diazePAM 5 MG Tablet GT ×3 (08:28→21:49)
[2021-08-07] MEDS: Enoxaparin 30 MG/0.3 ML Syringe SC (08:29)
[2021-08-07] MEDS: Ferrous Sulfate 300 MG/5 ML UDC GT (08:29)
[2021-08-07] MEDS: Docusate Sodium 100 MG/10 ML UDC 60 MG GT (08:29)
[2021-08-07] MEDS: 0.9% Saline Lock 10 ML Syringe IV (08:29)
[2021-08-07] MEDS: Cholecalciferol (VIT D3) 25 MCG TABLET (1,000 UNITS) 50 MCG GT (08:30)
[2021-08-07] MEDS: Ascorbic Acid 500 MG Tablet GT (08:30)
[2021-08-07] MEDS: Multivitamins,Ther W-Minerals Tablet 1 TABLET GT (08:30)
[2021-08-07] MEDS: Methenamine Hippurate 1 GM Tablet PO ×2 (08:30→21:43)
--- NOTE | 2021-08-07 08:38 | CPS ---
3lpm bleed in with home vent
[2021-08-07] MEDS: Acetaminophen 650 MG/20 ML UDC GT ×3 (09:01→19:18)
--- NOTE | 2021-08-07 09:02 | NURSING ---
Pt's father administered tube feeding as per ordered. 160ml Neocate Rell.
[2021-08-07] MEDS: Insulin Lispro 100 UNIT/ML INSULN.PEN 8 UNIT SC (12:54)
[2021-08-07] MEDS: Insulin Lispro 100 UNIT/ML INSULN.PEN SC (12:55)
[2021-08-07 15:06] LABS: Bedside Glucose 233 mg/dL (70-110)
[2021-08-07 17:36] LABS: Bedside Glucose 75 mg/dL (70-110)
[2021-08-08] VITALS (11 sets, daily range): BP systolic 101–132; BP diastolic 62–86; PULSE 56–108; RESP 17–21; TEMP 36.5–37.6; O2SAT 94–100
[2021-08-08] MEDS: 0.9% Normal Saline 1,000 ML 125 ML IV ×3 (02:11→22:38)
[2021-08-08] MEDS: Acetaminophen 650 MG/20 ML UDC GT (05:52)
[2021-08-08] MEDS: Baclofen 10 MG Tablet 30 MG GT ×3 (05:55→22:40)
--- NOTE | 2021-08-08 06:38 | RAD_ITS ---
STUDY: X-RAY CHEST REASON FOR EXAM: Female, 31 years old. PICC placement TECHNIQUE: Single AP portable view of the chest. COMPARISON: 08/06/2021. FINDINGS: New right-sided PICC line with its tip in the proximal superior vena cava. Persistent elevation of the left hemidiaphragm. No new infiltrate is seen. There is no demonstrated pleural abnormality. There is borderline cardiomegaly. Normal mediastinum and glenn. Normal visualized pulmonary arteries. Normal visualized aortic arch and descending thoracic aorta. Severe dextro scoliosis of the thoracic spine is again seen with vertebral rods. There is no demonstrated abnormality of the visualized soft tissue structures of the upper abdomen. RAD/CXR for Line Placement IMPRESSION: Right-sided PICC line with its tip in the superior vena cava. Otherwise no significant change. Electronically Signed: Jass Montaño, at 8:36 EST Tel , Service support ,
--- NOTE | 2021-08-08 06:45 | PN.HOSP_ITS ---
Subjective Subjective Patient with no acute events overnight per staff and family report aside from elevated temperatures that responded to Tylenol. Patient remains interactive and at her more smiling baseline. Urine culture resulted with significance resistance patterns with ESBL producing organism sensitive only to amikacin, cefotetan, gentamicin, imipenem, tobramycin. Patient without any evidence of chills, nausea, emesis, abdominal pain, chest pain or dyspnea. Objective Data Objective Data Vital Signs: Vital Signs Temp Pulse Resp BP Pulse Ox 99.7 F H 56 L 18 101/62 94 08/08/21 03:30 08/08/21 03:30 08/08/21 03:30 08/08/21 03:30 08/08/21 03:30 Oxygen Flow Rate (L/min) 3 Oxygen Delivery Method Mechanical Ventilator Weight: 105 lb 11.2 oz Body Mass Index (BMI) 22.3 Intake & Output: Intake and Output for Last 24 Hours 08/06/21 08/07/21 08/08/21 23:59 23:59 23:59 Intake Total 955.42 / 955.42 1426.67 / 1426.67 1445 / 1445 Output Total 650 / 850 2000 / 2330 630 / 630 Balance 305.42 / 105.42 -573.33 / -903.33 815 / 815 Lab / Micro Data Result Diagrams: 08/08/21 06:02 08/08/21 06:02 Labs: Laboratory Results - last 24 hr 08/07/21 06:40: WBC 9.2, RBC 2.86 L, Hgb 8.8 L, Hct 27.0 L, MCV 94.4, MCH 30.8, MCHC 32.6, RDW Std Deviation 44.9 H, RDW Coeff of Anne 13.0, Plt Count 218, MPV 9.9, Immature Gran % (Auto) 0.400, Neut % (Auto) 74.6 H, Lymph % (Auto) 10.0 L, [place] % (Auto) 13.7 H, Eos % (Auto) 1.0, Baso % (Auto) 0.3, Absolute Neuts (auto) 6.9, Absolute Lymphs (auto) 0.92, Nucleated RBC % 0 08/07/21 06:40: Sodium 140, Potassium 3.5, Chloride 109 H, Carbon Dioxide 28.0, Anion Gap 3 L, BUN 6 L, Creatinine 0.26 L, Estim Creat Clear Calc 215.74, Est GFR (MDRD) Af Amer 389, Est GFR (MDRD) Non-Af 322, BUN/Creatinine Ratio 22.9 H, Glucose 102, Calcium 8.3 L, Total Bilirubin 0.10 L, AST 14 L, ALT 20, Alkaline Phosphatase 86, Total Protein 6.3 L, Albumin 2.4 L, Globulin 3.9, Albumin/Globu darien Ratio 0.6 L 08/07/21 12:51: POC Glucose 233 H 08/07/21 17:29: POC Glucose 75 Micro: Microbiology 08/06/21 13:25 Urine Catheter - Catheter Urine Culture - Preliminary Presumptive E. coli Physical Exam Narrative Physical Examination: General: Non-verbal, awake, alert, nonverbal, remains interactive similar to her baseline, making facial gestures, smiling, no acute distress. Skin: Normalized color, normal turgor, no icterus, no cyanosis. HEENT: AT/NC, EOMI, PERRLA, mildly dry MM, normal baseline oral secretions, trach in place with no obvious paratracheal irritation. Lungs: Mildly diminished breath sounds, greater bilateral bases but no obvious of any distress, trach in place, vent settings stable, no rales, ronchi or wheezing. Heart: Improved regular rate with regular rhythm; no gallop, rub audible. Abdomen: soft, NTTP, G-tube in place, mild chronic unchanged distention, normalized bowel sounds. Extremities: no cyanosis, clubbing, or edema, chronic contractures, quadriplegia. Neurological: patient awake, alert, oriented noted; cognitive function improved, more interactive, at baseline currently; pupils equally reactive to light and accommodation; patient with spastic quadriplegia with cerebral palsy with chronic debilities, contractures, strength at baseline although significantly severely global decrease baseline. Psychiatric: affect appears interactive, no acute evidence of depressive or anxiety feelings. Assessment & Plan Assessment/Plan (1) UTI (urinary tract infection): QUALIFIERS: Urinary tract infection type: catheter-associated UTI Indwelling urinary catheter type: unspecified Encounter type: initial encounter Qualified Code(s): T83.511A - Infection and inflammatory reaction due to indwelling urethral catheter, initial encounter; N39.0 - Urinary tract infection, site not specified (2) Renal calculus or stone: PLAN: The patient is a 31 y/o F w/ PMHx: Chronic normocytic anemia, Chronic hyponatremia, Diabetes mellitus type II, Hx C-difficile, GERD s/p Jorje fundoplication, Cerebral palsy with spastic hemiplegia with seizure disorder with associated MRDD s/p spinal fusion with hardware, tracheostomy, GT, baclofen pump hx, recent admission 07/21/21-07/24/21 per Urology with cystoscopy, ureteroscopy laser lithotripsy and stenting who now represents to the [facility] ED on 08/06/21 history of completion of antibiotic therapies on Wednesday and over 48 hours increased fatigue, malaise, less interactive with fevers and tachycardia. 1. Acute Complicated ESBL E. Coli Complicated UTI w/ chronic self catheterization and Recent Ureteral Stenting with calculi w/ Acute Lactic Acidosis: Per SOFAq scoring patient does not meet Sepsis criteria despite presentation, no ABG obtained thus unable to perform SOFA. Patient admitted to PCU, maintained on her chronic vent settings with trach care routine, KUB with satisfactory appearance of patient's right-sided JJ stent with right nephrolithiasis evident, continued on IV meropenem pending ID evaluation. Urology following and recommended Owens catheter placement. Urology plan for continued appropriate UTI treatment with eventual return in the next several weeks to address right-sided nephrolithiasis as well as potential stent removal. Blood culture NGTD. UCx w/ with ESBL producing organism sensitive only to amikacin, cefotetan, gentamicin, imipenem, tobramycin. 2. 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 3. Chronic Hyponatremia: Admission sodium 133, similar to baseline, judiciously hydrate given acute presentation #1, 08/08/21 Na 141. 4. Diabetes mellitus type II: Will continue home insulin regimen, continue TFs, accu checks q 6 hours w/ ISS. 5. DVT prophylaxis: SCDs, Lovenox. 6. CODE status: Patient OVIDIO is her mother who is present. DNR-CCA, allowance of continued ventilation via tracheostomy but no CPR or use of paddles. Charges/Coding Visit Charges Inpatient E&M: 37782 Subs Hosp L2
[2021-08-08 06:54] LABS: Absolute Lymphocyte Count 1.23 X10^3/uL (0.83-4.51); Absolute Neutrophil Count 6.7 X10^3/uL (2.0-7.7); Basophil# 0.02 X10^3/uL; Basophil% 0.2 % (0-1); Eosinophil# 0.17 X10^3/uL; Eosinophils% 1.9 % (0-5); Lymphocyte # 1.23 X10^3/ul (0.83-4.51); Lymphocyte % 13.9 % (19-41); Mean Corp Hgb Conc 32.3 g/dL (32-36); Mean Platelet Vol. 10.6 fl (6.2-12.0); Monocyte# 0.73 X10^3/uL; Monocyte% 8.2 % (0-10); NRBC Flagged by Analyzer 0 % (0-5); Neutrophil # 6.69 X10^3/uL (2.7-7.7); Neutrophil % 75.5 % (47-70); Platelet Count 244 K/mm3 (150-450); RBC Distribution Width SD 46.1 fl (35.1-43.9); Red Blood Count 3.23 M/mm3 (4.2-5.4); White Blood Count 8.9 K/mm3 (4.4-11.0)
[2021-08-08] MEDS: Budesonide Respules 0.5 MG/2 ML AMPUL.NEB. INHALATION ×2 (07:15→19:29)
[2021-08-08 07:22] LABS: ALB/GLOB Ratio 0.6 RATIO (0.9-2.4); AST(SGOT) 16 U/L (15-37); Alanine Aminotransfer ALT/SGPT 28 U/L (13-56); Albumin, Serum 2.6 g/dL (3.2-5.0); Alkaline Phosphatase 99 U/L (45-117); Anion Gap 7 (5-15); BUN 4 mg/dL (7-18); BUN/Creat Ratio 11.9 RATIO (10-20); Calcium,Total 8.9 mg/dL (8.5-10.1); Chloride 110 mmol/L (98-107); Creatinine, Serum 0.34 mg/dL (0.55-1.02); EST Glomerular Filtration Rate 241 mL/min (>60); Est Glom Filt Rate - Afr Amer 291 mL/min (>60); Estimated Creatinine Clearance 181.46 ml/min; Globulin 4.4 g/dL (2.2-4.2); Glucose 105 mg/dL (74-106); Potassium 3.9 mmol/L (3.5-5.1); Sodium Level 141 mmol/L (136-145)
[2021-08-08] MEDS: Albuterol 2.5 MG/3 ML VIAL.NEB. INHALATION ×2 (07:35→19:29)
[2021-08-08] MEDS: Insulin Lispro 100 UNIT/ML INSULN.PEN 8 UNIT SC ×3 (08:21→16:55)
[2021-08-08] MEDS: Ferrous Sulfate 300 MG/5 ML UDC GT (08:22)
[2021-08-08] MEDS: Docusate Sodium 100 MG/10 ML UDC 60 MG GT (08:22)
[2021-08-08] MEDS: Methenamine Hippurate 1 GM Tablet PO ×2 (08:23→22:40)
[2021-08-08] MEDS: Multivitamins,Ther W-Minerals Tablet 1 TABLET GT (08:23)
[2021-08-08] MEDS: Enoxaparin 30 MG/0.3 ML Syringe SC (08:23)
[2021-08-08] MEDS: Ascorbic Acid 500 MG Tablet GT (08:24)
[2021-08-08] MEDS: Cholecalciferol (VIT D3) 25 MCG TABLET (1,000 UNITS) 50 MCG GT (08:24)
[2021-08-08] MEDS: diazePAM 5 MG Tablet GT ×3 (08:28→22:41)
[2021-08-08] MEDS: diazePAM 2 MG Tablet GT ×2 (08:28→22:40)
[2021-08-08 08:50] LABS: Bedside Glucose 92 mg/dL (70-110)
--- NOTE | 2021-08-08 11:01 | PCM.CONS.GEN ---
Assessment & Plan Assessment/Plan (1) UTI (urinary tract infection): QUALIFIERS: Urinary tract infection type: catheter-associated UTI Indwelling urinary catheter type: unspecified Encounter type: initial encounter Qualified Code(s): T83.511A - Infection and inflammatory reaction due to indwelling urethral catheter, initial encounter; N39.0 - Urinary tract infection, site not specified PLAN: Cont meropenem. Ucx again with ecoli, susc pending. Will follow, thank you (2) Cerebral palsy: QUALIFIERS: Cerebral palsy type: unspecified type Qualified Code(s): G80.9 - Cerebral palsy, unspecified HPI Consult Data Date of Consult: 08/08/21 HPI Narrative HPI Narrative: MANDY RIVERA, is a 31 F with h/o cerebral palsy, trach, who present with fever for one day. Recently completed iv ertapenem for esbl pyelo/infected stones. Admitted on meropenem, father at bedside reports she is doing better. 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 Thrush Urinary tract infection due to extended-spectrum beta lactamase (ESBL) producing Escherichia coli Visual disturbance Vitamin D deficiency Home Medications baclofen 30 mg GT TID 09/02/13 [History Last Taken 08/05/21] oxcarbazepine 300 mg/5 mL (60 mg/mL) oral suspension 8 ml GT BID ml 08/28/17 [History Last Taken 08/05/21] insulin aspart U-100 100 unit/mL (3 mL) subcutaneous pen 8 units SQ 4X/DAY 09/20/20 [History Last Taken 08/05/21] ferrous sulfate 60 mg FEEDING TUBE DAILY 02/28/21 [History Last Taken 08/05/21] cholecalciferol (vitamin D3) 50 mcg FEEDING TUBE DAILY 05/20/21 [History Last Taken 08/05/21] diazepam 5 mg FEEDING TUBE DAILY@1400 05/20/21 [History Last Taken 08/05/21] diazepam 7 mg FEEDING TUBE BID 05/20/21 [History Last Taken 08/05/21] methenamine hippurate [Hiprex] 1 g FEEDING TUBE BID 05/20/21 [History Last Taken 08/05/21] Daily Fiber (psyllium-aspart) 1 packet G-TUBE DAILY PRN PRN #0 ea 05/24/21 [Rx Last Taken 08/05/21] Vitamin C 10 ml PO DAILY 06/25/21 [History Last Taken 08/05/21] Wellesse Multi Vitamin Plus 10 ml PO DAILY 06/25/21 [History Last Taken 08/05/21] acidophilus-pectin, citrus 1 tab G-TUBE DAILY 06/25/21 [History Last Taken 08/05/21] levalbuterol HCl [Xopenex] 1.25 mg INHALATION Q12H 06/25/21 [History Last Taken 08/05/21] docusate sodium 60 mg FEEDING TUBE DAILY 07/21/21 [History Last Taken 08/05/21] levalbuterol HCl 1.25 mg INHALATION Q4H PRN 08/06/21 [History Last Taken Unknown] Allergy/AdvReac Type Severity Reaction Status Date / Time linezolid Allergy Severe Other - Verified 08/06/21 12:18 seizure & coma vancomycin Allergy Severe Other - Verified 08/06/21 12:18 kidney failure tobramycin Allergy Intermediate Other - Verified 08/06/21 12:18 turned beet red nafcillin Allergy Mild Rash Verified 08/06/21 12:18 benzoin Allergy Unknown Rash Verified 08/06/21 12:18 milk Allergy Unknown Other Verified 08/06/21 12:18 soy Allergy Unknown Other Verified 08/06/21 12:18 polyethylene glycol 3350 AdvReac Unknown Hives Verified 08/06/21 12:18 [From Miralax] Family History Grandmother Cancer maternal Other Adopted Surgical History derotatox ostomies eyes straightened Gastrostomy tube in place H/O spinal fusion Presence of intrathecal baclofen pump rods to back Status post Jorje fundoplication surgery on gland under tongue tendonatomies Tracheostomy status Social History household members: other details: Mother and is vent dependent housing: house Smoking Status: Never smoker second hand exposure: No alcohol intake: never substance use type: does not use Physical Exam Const no apparent distress Exam Limitations: behavioral limitations Eyes PERRL Neck supple and No nodes Resp normal air movement and clear to auscultation bilaterally Cardio regular rate and regular rhythm GI non-tender and non-distended Extremity General Extremity: no tenderness to palpation of joints or extremities Skin no rashes or lesions noted Lab / Micro Data Result Diagrams: 08/08/21 06:02 08/08/21 06:02 Labs: Laboratory Results - last 24 hr 08/07/21 12:51: POC Glucose 233 H 08/07/21 17:29: POC Glucose 75 08/08/21 06:02: WBC 8.9, RBC 3.23 L, Hgb 10.0 L, Hct 31.0 L, MCV 96.0, MCH 31.0, MCHC 32.3, RDW Std Deviation 46.1 H, RDW Coeff of Anne 13.0, Plt Count 244, MPV 10.6, Immature Gran % (Auto) 0.300, Neut % (Auto) 75.5 H, Lymph % (Auto) 13.9 L, [place] % (Auto) 8.2, Eos % (Auto) 1.9, Baso % (Auto) 0.2, Absolute Neuts (auto) 6.7, Absolute Lymphs (auto) 1.23, Nucleated RBC % 0 08/08/21 06:02: Sodium 141, Potassium 3.9, Chloride 110 H, Carbon Dioxide 24.0, Anion Gap 7, BUN 4 L, Creatinine 0.34 L, Estim Creat Clear Calc 181.46, Est GFR (MDRD) Af Amer 291, Est GFR (MDRD) Non-Af 241, BUN/Creatinine Ratio 11.9, Glucose 105, Calcium 8.9, Total Bilirubin 0.10 L, AST 16, ALT 28, Alkaline Phosphatase 99, Total Protein 7.0, Albumin 2.6 L, Globulin 4.4 H, Albumin/Globulin Ratio 0.6 L 08/08/21 08:20: POC Glucose 92 Micro: Microbiology 08/06/21 13:25 Urine Catheter - Catheter Urine Culture - Final Presumptive E. coli 08/06/21 12:25 Blood Culture (Wb) - Right Foot Blood Culture - Preliminary No growth in 48 hours. 08/06/21 13:25 Blood Culture (Wb) - Right Foot Blood Culture - Preliminary No growth in 48 hours.
[2021-08-08 12:40] LABS: Bedside Glucose 80 mg/dL (70-110)
--- NOTE | 2021-08-08 13:15 | CASEMGMT ---
HIREN WILSON Face to Face with patient's mother, Rina Montero, for initial transition planning/care coordination assessment, as patient is not able to participate in assessment. HIREN WILSON introduced self and role at [facility]. Patient lying in bed, mother at bedside. Pt's mother willing to participate in assessment and is able to answer all questions appropriately. Care providers, pharmacy, and demographics verified. Rina wishes for patient to discharge home with resumption of [facility] for nursing. Rina states no further needs or concerns at this time. PCP: Sandra Bermudez Specialists: Marek, neurology; Husam, assurance auditor; , culvert installer; Sg, ID Preferred Pharmacy: [facility] Insurance: [facility] Prescription Benefit: yes Living Will/HPOA: yes, mother Rina Montero-parents are also guardians LNOK: Mikey/Rinasulema Montero, parents; Mikey Montero Jr, brother Living Arrangements: Pt lives with parent, who are her caregivers. Patient lives in a single story home with ramp to enter the home. Parents provide total care for patient. Transportation: [facility] DME/HHC: Rina, pt's mother, states that pt's DME needs are met at home. DME includes hospital bed, home ventilator, suction machine, oxygen concentrator with backup portable tanks, tube feeds with all supplies/equipment. Patient is active with [facility] for nursing 3 days per week for 6-8 hrs per day. RANJANA order for [facility] placed and clinicals faxed. Pt's mother states no concerns with taking pt home at discharge. Pt is on disability. Pt/parents do not smoke cigarettes. Mother voices no further concerns/needs. Pt to be sent home with jayant which mother has taken care of before. Disposition Plan: Patient to discharge home with resumption of HHC, family support, and follow-up plans in place
--- NOTE | 2021-08-08 13:18 | PCM.DC.SUM ---
Providers Date of Admission: 08/06/21 Primary Care Physician: Dr. Sandra Bermudez DO Consultations 08/06/21 16:12 Consult: Infectious Disease Routine Consulting Provider: Rafa Bettencourt Reason for Consult: Complicated UTI EMERGENT Consult: No MD Notified: Yes Date Notified: 08/06/21 Time Notified: 16:15 Method of Notification: Text Consult: Urology Routine Consulting Provider: Samaria Anaya Reason for Consult: Complicated recurrent UTI, recent stent, stones EMERGENT Consult: No Notified: Yes Date Notified: 08/06/21 Time Notified: 15:19 Method of Notification: called Reason For Visit: COMPLICATED UTI, LACTIC ACIDOSIS Diagnosis Discharge Diagnosis (1) UTI (urinary tract infection): Status: Acute Code(s): N39.0 - Urinary tract infection, site not specified Qualifiers: Encounter type: initial encounter Indwelling urinary catheter type: unspecified Urinary tract infection type: catheter-associated UTI Qualified Code(s): T83.511A - Infection and inflammatory reaction due to indwelling urethral catheter, initial encounter; N39.0 - Urinary tract infection, site not specified (2) Renal calculus or stone: Status: Acute Code(s): N20.0 - Calculus of kidney Medications at Discharge Home Medications baclofen 30 mg GT TID 09/02/13 oxcarbazepine 300 mg/5 mL (60 mg/mL) oral suspension 8 ml GT BID ml 08/28/17 insulin aspart U-100 100 unit/mL (3 mL) subcutaneous pen 8 units SQ 4X/DAY 09/20/20 ferrous sulfate 60 mg FEEDING TUBE DAILY 02/28/21 cholecalciferol (vitamin D3) 50 mcg FEEDING TUBE DAILY 05/20/21 diazepam 5 mg FEEDING TUBE DAILY@1400 05/20/21 diazepam 7 mg FEEDING TUBE BID 05/20/21 methenamine hippurate [Hiprex] 1 g FEEDING TUBE BID 05/20/21 Daily Fiber (psyllium-aspart) 1 packet G-TUBE DAILY PRN PRN #0 ea 05/24/21 Vitamin C 10 ml PO DAILY 06/25/21 Wellesse Multi Vitamin Plus 10 ml PO DAILY 06/25/21 acidophilus-pectin, citrus 1 tab G-TUBE DAILY 06/25/21 levalbuterol HCl [Xopenex] 1.25 mg INHALATION Q12H 06/25/21 docusate sodium 60 mg FEEDING TUBE DAILY 07/21/21 levalbuterol HCl 1.25 mg INHALATION Q4H PRN 08/06/21 ertapenem 1 g IM Q24H 30 Days 08/08/21 Hospital Course Operations None Procedures PICC line placement Summary of Care Provided Minutes Spent on Discharge: 35 Hospital Course: DISCHARGE NOTE: Discharge Diagnoses: 1. Acute Complicated ESBL E. Coli Complicated UTI w/ chronic self catheterization and Recent Ureteral Stenting with calculi w/ Acute Lactic Acidosis 2. 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 Chronic Hyponatremia 4. Diabetes mellitus type II 5. CODE status: OVIDIO is her mother. DNR-CCA, allowance of continued ventilation via tracheostomy but no CPR or use of paddles. Discharge Summary: The patient is a 31 y/o F w/ PMHx: Chronic normocytic anemia, Chronic hyponatremia, Diabetes mellitus type II, Hx C-difficile, GERD s/p Jorje fundoplication, Cerebral palsy with spastic hemiplegia with seizure disorder with associated MRDD s/p spinal fusion with hardware, tracheostomy, GT, baclofen pump hx, recent admission 07/21/21-07/24/21 per Urology with cystoscopy, ureteroscopy laser lithotripsy and stenting who represented to the [facility] ED on 08/06/21 history of completion of antibiotic therapies on Wednesday and over 48 hours increased fatigue, malaise, less interactive with fevers and tachycardia. Per SOFAq scoring patient does not meet Sepsis criteria despite presentation, no ABG obtained thus unable to perform SOFA. Patient admitted to PCU, maintained on her chronic vent settings with trach care routine, KUB with satisfactory appearance of patient's right-sided JJ stent with right nephrolithiasis evident, continued on IV meropenem, Urology followed and recommended Saba catheter placement. Urology plan for continued appropriate UTI treatment with eventual return in the next several weeks to address right-sided nephrolithiasis as well as potential stent removal. Blood culture NGTD. UCx w/ with ESBL producing organism sensitive only to amikacin, cefotetan, gentamicin, imipenem, tobramycin therefore per ID following evaluation patient with requested PICC placement and discharge on ertapenem 1 gm daily x 30 days with planned weekly CMP and CBC to be faxed to ID with follow-up in their office in 2 weeks. Patient family instructed that Dr. Anaya office would contact them to arrange her follow-up visit, surgical date and relay when they would like to try saba discontinuation. Weight / BMI Weight Weight: 105 lb 11.2 oz Body Mass Index (BMI) 22.3 ABG / Lab / Microbiology Data Result Diagrams: 08/08/21 06:02 08/08/21 06:02 Laboratory: Laboratory Results - last 24 hr 08/07/21 12:51: POC Glucose 233 H 08/07/21 17:29: POC Glucose 75 08/08/21 06:02: WBC 8.9, RBC 3.23 L, Hgb 10.0 L, Hct 31.0 L, MCV 96.0, MCH 31.0, MCHC 32.3, RDW Std Deviation 46.1 H, RDW Coeff of Anne 13.0, Plt Count 244, MPV 10.6, Immature Gran % (Auto) 0.300, Neut % (Auto) 75.5 H, Lymph % (Auto) 13.9 L, [place] % (Auto) 8.2, Eos % (Auto) 1.9, Baso % (Auto) 0.2, Absolute Neuts (auto) 6.7, Absolute Lymphs (auto) 1.23, Nucleated RBC % 0 08/08/21 06:02: Sodium 141, Potassium 3.9, Chloride 110 H, Carbon Dioxide 24.0, Anion Gap 7, BUN 4 L, Creatinine 0.34 L, Estim Creat Clear Calc 181.46, Est GFR (MDRD) Af Amer 291, Est GFR (MDRD) Non-Af 241, BUN/Creatinine Ratio 11.9, Glucose 105, Calcium 8.9, Total Bilirubin 0.10 L, AST 16, ALT 28, Alkaline Phosphatase 99, Total Protein 7.0, Albumin 2.6 L, Globulin 4.4 H, Albumin/Globulin Ratio 0.6 L 08/08/21 08:20: POC Glucose 92 08/08/21 11:49: POC Glucose 80 Microbiology: Microbiology 08/06/21 13:25 Urine Catheter - Catheter Urine Culture - Final Presumptive E. coli 08/06/21 12:25 Blood Culture (Wb) - Right Foot Blood Culture - Preliminary No growth in 48 hours. 08/06/21 13:25 Blood Culture (Wb) - Right Foot Blood Culture - Preliminary No growth in 48 hours. Meaningful Use Info Meaningful Use Diagnoses (Choose all that apply): None applicable Discharge Plan Admission Admit Date/Time: 08/06/21 15:10 Primary Reason for Your Visit: Acute Complicated ESBL E. Coli UTI Attending Provider: Chery Miranda Primary Care Provider: Sandra Bermudez Consulting Providers: Rafa Bettencourt ; Samaria Anaya Instructions Additional Instructions / Restrictions: ADDITIONAL INSTRUCTIONS: - Please maintain saba catheter until requested removal per Dr. Anaya. - If you have any concerns about recurrent elevated heart rate or lethargy or increased agitation not consistent with her baseline please do not hesitate to bring her for evaluation to the ED. Discharge Orders/Prescriptions Prescriptions: New ertapenem 1 gram recon soln 1 g IM Q24H 30 Days RF: 0 Continued oxcarbazepine [Trileptal] 300 mg/5 mL (60 mg/mL) suspension 8 ml GT BID RF: 0 insulin aspart U-100 100 unit/mL (3 mL) insulin pen 8 units SQ 4X/DAY RF: 0 baclofen 20 MG tablet 30 mg GT TID RF: 0 ferrous sulfate 15 mg iron (75 mg)/mL Syringe 60 mg feeding tube DAILY RF: 0 diazepam 5 mg/5 mL (1 mg/mL) Solution 7 mg feeding tube BID RF: 0 diazepam 5 mg/5 mL (1 mg/mL) Solution 5 mg feeding tube DAILY@1400 RF: 0 methenamine hippurate [Hiprex] 1 gram Tablet 1 g feeding tube BID RF: 0 cholecalciferol (vitamin D3) 10 mcg/mL (400 unit/mL) Drops 50 mcg feeding tube DAILY RF: 0 Daily Fiber (psyllium-aspart) 3 gram Powder In Packet 1 packet G-tube DAILY PRN PRN (Reason: Constipation) Qty: 0 RF: 0 docusate sodium 60 mg/15 mL Syrup 60 mg feeding tube DAILY RF: 0 levalbuterol HCl [Xopenex] 1.25 mg/3 mL Solution For Nebulization 1.25 mg INHALATION Q12H RF: 0 Wellesse Multi Vitamin Plus 400 mcg-200 mg/30 mL Liquid 10 ml PO DAILY RF: 0 Vitamin C 500 mg/15 mL Liquid 10 ml PO DAILY RF: 0 acidophilus-pectin, citrus 25 million cell -100 mg tablet 1 tab G-tube DAILY RF: 0 levalbuterol HCl 1.25 mg/3 mL Solution For Nebulization 1.25 mg INHALATION Q4H PRN (Reason: Shortness Of Breath Or Wheezing) RF: 0 Referrals / Follow Up: Samaria Anaya MD [STAFF PHYSICIAN] - (Dr. Anaya office will contact you to arrange your follow-up visit and surgery.) Sandra Bermudez DO [Primary Care Provider] - (Follow-up in 3-5 days to review admission.) Rafa Bettencourt MD [STAFF PHYSICIAN] - (Follow-up in 2 weeks. The weekly CBC and CMP will be faxed to his office while she is on the antibiotics.) Disposition Disposition (needs filled in before D/C Order can be placed): Home Health Service
--- NOTE | 2021-08-08 13:34 | CASEMGMT ---
Addendum entered by Mey Weinstein 08/08/21 16:56: Call to [facility] and per Fatmata, they can accept pt but will not be able to do SOC until 08/11/21. Pt's mother updated, voices understanding. Green sheet left on chart for both C's and CSI. Mother voices no further questions/concerns/needs. Moose RN CM Addendum entered by Mey Weinstein 08/08/21 16:08: Clinicals faxed to [facility], who provides nurses for pt, but they are unable to complete iv antibx. Still awaiting call back from [facility] in regards to pt. CM to follow. Moose RN CM Addendum entered by Mey Weinstein 08/08/21 15:29: Call to Fatmata again at [facility] and no answer, message left again in regards to pt and that Iv antibx set up. Moose RN CM Addendum entered by Mey Weinstein 08/08/21 14:45: Call from Kate at [facility] [place] and she states pt is covered at 100% with $3 co-pay for Ertapenem. Kate requests call back to be notified that [facility] set up so that they can schedule delivery. Kate's contact [phone]. CM to follow. Moose RN CM Addendum entered by Mey Weinstein 08/08/21 14:10: Message left with [facility] and [facility] also in regards to pt as she was just discharged from them earlier in the week. Call to Kate at [facility] and she states she is working on referral at this time and will updated this RN CM. PICC insertion documentation to be faxed once obtained. Moose RN CM Original Note: Per Dr. Miranda, pt to be sent home with IV antibiotics at home for 30 days. Referral faxed to [facility] and [facility] after ok from pt's mother as pt has been set up with in the past with both. Per Carlos, PCU charge, PICC unable to be placed until later tonight. CM to follow. Moose MARADIAGA CM
[2021-08-08 14:36] LABS: Bedside Glucose 134 mg/dL (70-110)
[2021-08-08 17:00] LABS: Bedside Glucose 116 mg/dL (70-110)
--- NOTE | 2021-08-09 00:23 | NURSING ---
PICC INSERTION INTERVENTION COMPLETED BY ROD MACHINE OPERATORHIREN ALDANA.
[2021-08-09 03:00] VITALS: PULSE 53
[2021-08-09] MEDS: Baclofen 10 MG Tablet 30 MG GT (06:13)
[2021-08-09 06:15] VITALS: BP 114/64; PULSE 59; RESP 16; TEMP 36.6; O2SAT 94
--- NOTE | 2021-08-09 06:37 | PCM.PN.HOSP ---
Subjective Subjective Patient with no acute events overnight per family present or staff. Patient was set to be discharged 08/08/2021 however PIC line placement was delayed therefore patient ride set up for this morning and discharge planned shortly. Patient without any evidence of recurrent fevers, chills, nausea, emesis, abdominal pain, chest pain or dyspnea. Objective Data Objective Data Vital Signs: Vital Signs Temp Pulse Resp BP Pulse Ox 98 F 59 L 16 114/64 94 08/09/21 06:15 08/09/21 06:15 08/09/21 06:15 08/09/21 06:15 08/09/21 06:15 Oxygen Flow Rate (L/min) 3 Oxygen Delivery Method Mechanical Ventilator Weight: 105 lb 11.2 oz Body Mass Index (BMI) 22.3 Intake & Output: Intake and Output for Last 24 Hours 08/07/21 08/08/21 08/09/21 23:59 23:59 23:59 Intake Total 1426.67 / 1426.67 4125 / 4125 240 / 240 Output Total 1999 / 2329 2630 / 2630 1525 / 1525 Balance -573.33 / -903.33 1495 / 1495 -1285 / -1285 Lab / Micro Data Result Diagrams: 08/08/21 06:02 08/08/21 06:02 Labs: Laboratory Results - last 24 hr 08/08/21 06:02: WBC 8.9, RBC 3.23 L, Hgb 10.0 L, Hct 31.0 L, MCV 96.0, MCH 31.0, MCHC 32.3, RDW Std Deviation 46.1 H, RDW Coeff of Anne 13.0, Plt Count 244, MPV 10.6, Immature Gran % (Auto) 0.300, Neut % (Auto) 75.5 H, Lymph % (Auto) 13.9 L, Wilkes % (Auto) 8.2, Eos % (Auto) 1.9, Baso % (Auto) 0.2, Absolute Neuts (auto) 6.7, Absolute Lymphs (auto) 1.23, Nucleated RBC % 0 08/08/21 06:02: Sodium 141, Potassium 3.9, Chloride 110 H, Carbon Dioxide 24.0, Anion Gap 7, BUN 4 L, Creatinine 0.34 L, Estim Creat Clear Calc 181.46, Est GFR (MDRD) Af Amer 291, Est GFR (MDRD) Non-Af 241, BUN/Creatinine Ratio 11.9, Glucose 105, Calcium 8.9, Total Bilirubin 0.10 L, AST 16, ALT 28, Alkaline Phosphatase 99, Total Protein 7.0, Albumin 2.6 L, Globulin 4.4 H, Albumin/Globulin Ratio 0.6 L 08/08/21 08:20: POC Glucose 92 08/08/21 11:49: POC Glucose 80 08/08/21 14:16: POC Glucose 134 H 08/08/21 16:54: POC Glucose 116 H Micro: Microbiology 08/06/21 13:25 Urine Catheter - Catheter Urine Culture - Final Presumptive E. coli 08/06/21 12:25 Blood Culture (Wb) - Right Foot Blood Culture - Preliminary No growth in 48 hours. 08/06/21 13:25 Blood Culture (Wb) - Right Foot Blood Culture - Preliminary No growth in 48 hours. Physical Exam Narrative Physical Examination: General: Non-verbal, awake, alert, nonverbal, remains interactive similar to her baseline, making facial gestures, no acute distress. Skin: Normalized color, normal turgor, no icterus, no cyanosis. HEENT: AT/NC, EOMI, PERRLA, mildly dry MM, normal baseline oral secretions, trach in place with no obvious paratracheal irritation. Lungs: Mildly diminished breath sounds, greater bilateral bases but no obvious of any distress, trach in place, vent settings stable, no rales, ronchi or wheezing. Heart: Improved regular rate with regular rhythm; no gallop, rub audible. Abdomen: soft, NTTP, G-tube in place, mild chronic unchanged distention, normalized bowel sounds. Extremities: no cyanosis, clubbing, or edema, chronic contractures, quadriplegia. Neurological: patient awake, alert, oriented noted; cognitive function improved, more interactive, at baseline currently; pupils equally reactive to light and accommodation; patient with spastic quadriplegia with cerebral palsy with chronic debilities, contractures, strength at baseline although significantly severely global decrease baseline. Psychiatric: affect appears interactive, no acute evidence of depressive or anxiety feelings. Assessment & Plan Assessment/Plan (1) UTI (urinary tract infection): QUALIFIERS: Encounter type: initial encounter Indwelling urinary catheter type: unspecified Urinary tract infection type: catheter-associated UTI Qualified Code(s): T83.511A - Infection and inflammatory reaction due to indwelling urethral catheter, initial encounter; N39.0 - Urinary tract infection, site not specified (2) Renal calculus or stone: PLAN: The patient is a 31 y/o F w/ PMHx: Chronic normocytic anemia, Chronic hyponatremia, Diabetes mellitus type II, Hx C-difficile, GERD s/p Jorje fundoplication, Cerebral palsy with spastic hemiplegia with seizure disorder with associated MRDD s/p spinal fusion with hardware, tracheostomy, GT, baclofen pump hx, recent admission 07/21/21-07/24/21 per Urology with cystoscopy, ureteroscopy laser lithotripsy and stenting who now represents to the [facility] ED on 08/06/21 history of completion of antibiotic therapies on Wednesday and over 48 hours increased fatigue, malaise, less interactive with fevers and tachycardia. 1. Acute Complicated ESBL E. Coli Complicated UTI w/ chronic self catheterization and Recent Ureteral Stenting with calculi w/ Acute Lactic Acidosis: Per SOFAq scoring patient does not meet Sepsis criteria despite presentation, no ABG obtained thus unable to perform SOFA. Patient admitted to PCU, maintained on her chronic vent settings with trach care routine, KUB with satisfactory appearance of patient's right-sided JJ stent with right nephrolithiasis evident, continued on IV meropenem pending ID evaluation. Urology following and recommended Owens catheter placement. Urology plan for continued appropriate UTI treatment with eventual return in the next several weeks to address right-sided nephrolithiasis as well as potential stent removal. Blood culture NGTD. UCx w/ with ESBL producing organism sensitive only to amikacin, cefotetan, gentamicin, imipenem, tobramycin. Patient discharged 08/09/2021 with PICC line placement delayed until day of discharge, transition to IV ertapenem 1 g daily with weekly CBC and CMP to be faxed to Dr. Bettencourt with follow-up with infectious disease in 2 weeks. Also discussed patient case with urology and their office will call patient family to arrange follow-up as well as surgical intervention timeline. Owens catheter will remain in per discussion with urology until they alert the family of removal plan. Patient family was educated about Owens care prior to her discharge. 2. 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 3. Chronic Hyponatremia: Admission sodium 133, similar to baseline, judiciously hydrate given acute presentation #1, 08/08/21 Na 141. Given improvement, 08/09/2021 labs deferred for early discharge. 4. Diabetes mellitus type II: Will continue home insulin regimen, continue TFs, accu checks q 6 hours w/ ISS. 5. DVT prophylaxis: SCDs, Lovenox. 6. CODE status: Patient HCPBHAVIN is her mother who is present. DNR-CCA, allowance of continued ventilation via tracheostomy but no CPR or use of paddles. Charges/Coding Visit Charges Inpatient E&M: 68610 Subs Hosp L2
--- NOTE | 2021-08-09 06:47 | NURSING ---
[facility] NOTIFIED OF NEED FOR TRANSPORTATION THIS AM. WE WERE ASKED TO CALL THEM BACK AFTER THEIR CHANGE OF SHIFT AT 0730.
[2021-08-09] MEDS: Budesonide Respules 0.5 MG/2 ML AMPUL.NEB. INHALATION (07:06)
[2021-08-09] MEDS: Albuterol 2.5 MG/3 ML VIAL.NEB. INHALATION (07:06)
[2021-08-09 07:07] VITALS: PULSE 62; RESP 18; O2SAT 100
[2021-08-09] MEDS: Insulin Lispro 100 UNIT/ML INSULN.PEN 8 UNIT SC (07:45)
[2021-08-09 08:10] LABS: Bedside Glucose 91 mg/dL (70-110)
== END 2021-08-09 08:06 | disposition home health service (06) | DRG 466 ==
LOC: ED 14:40 → PCU 15:30
PROVIDERS: Admitting Provider Family Medicine; Emergency Provider Emergency Medicine; PCP Internal Medicine; Visit Provider Family Medicine
DX: T83.518A Infection and inflammatory reaction due to other urinary catheter, initial encounter (principal); N39.0 Urinary tract infection, site not specified; E87.2 Acidosis; B96.20 Unspecified Escherichia coli [E. coli] as the cause of diseases classified elsewhere; G80.0 Spastic quadriplegic cerebral palsy; G40.909 Epilepsy, unspecified, not intractable, without status epilepticus; E87.1 Hypo-osmolality and hyponatremia; N20.0 Calculus of kidney; E11.9 Type 2 diabetes mellitus without complications; Z66 Do not resuscitate; Z79.899 Other long term (current) drug therapy; Z43.0 Encounter for attention to tracheostomy; Z93.1 Gastrostomy status; Z79.4 Long term (current) use of insulin
CPT/HCPCS: 36415; 36569; 51702; 71045; 74018; 80053; 81001; 82962; 83605; 85025; 85610; 85730; 87040; 87086; 87088; 87186; 93005; 94640; 97802; 99285; J2185; J7030; J7040; A4216

== ENCOUNTER 2021-08-25 07:24 | Day surgery (SDC) | payer MEDICAID, SELFPAY ==
[2021-08-25] VITALS (14 sets, daily range): BP systolic 121–179; BP diastolic 69–129; PULSE 54–109; RESP 14–16; TEMP 36.6–37.7; O2SAT 94–100; BMI 26.2
[2021-08-25] MEDS: Lactated Ringers 1,000 ML 15 ML IV (07:40)
[2021-08-25 09:10] LABS: Bedside Glucose 96 mg/dL (70-110)
--- NOTE | 2021-08-25 09:12 | PCM.HP.STD ---
HPI - General HPI Narrative MANDY RIVERA, is a 31 F who presents for extracorporal shockwave lithotripsy of remaining right renal stones. Informed consent was obtained by [facility] Medical History (Updated 08/25/21 @ 09:[address] Samaria Anaya MD) Allergic rhinitis due to other allergen Amenorrhea Bedbound Bronchiectasis without acute exacerbation Bronchitis Cerebral palsy Chronic respiratory failure Diabetes Hyperglycemia Irregular menstrual cycle Kidney stones Lactic acid acidosis Mild mental retardation Neuromuscular scoliosis Pancreatitis Paraplegia PICC (peripherally inserted central catheter) in place Pneumonia Recurrent UTI Renal calculi Renal calculus or stone Respiratory acidosis Seizure Severe sepsis Skin tag of vaginal mucosa 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 Thrush Urinary tract infection due to extended-spectrum beta lactamase (ESBL) producing Escherichia coli Visual disturbance Vitamin D deficiency Home Medications baclofen 30 mg GT TID 09/02/13 [History Last Taken 08/05/21] oxcarbazepine 300 mg/5 mL (60 mg/mL) oral suspension 8 ml GT BID ml 08/28/17 [History Last Taken 08/25/21 06:00] insulin aspart U-100 100 unit/mL (3 mL) subcutaneous pen 8 units SQ 4X/DAY 09/20/20 [History Last Taken 08/05/21] ferrous sulfate 60 mg FEEDING TUBE DAILY 02/28/21 [History Last Taken 08/05/21] cholecalciferol (vitamin D3) 50 mcg FEEDING TUBE DAILY 05/20/21 [History Last Taken 08/05/21] diazepam 5 mg FEEDING TUBE DAILY@1400 05/20/21 [History Last Taken 08/05/21] diazepam 7 mg FEEDING TUBE BID 05/20/21 [History Last Taken 08/05/21] methenamine hippurate [Hiprex] 1 g FEEDING TUBE BID 05/20/21 [History Last Taken 08/05/21] Daily Fiber (psyllium-aspart) 1 packet G-TUBE DAILY PRN PRN #0 ea 05/24/21 [Rx Last Taken 08/05/21] Vitamin C 10 ml PO DAILY 06/25/21 [History Last Taken 08/05/21] Wellesse Multi Vitamin Plus 10 ml PO DAILY 06/25/21 [History Last Taken 08/05/21] acidophilus-pectin, citrus 1 tab G-TUBE DAILY 06/25/21 [History Last Taken 08/05/21] levalbuterol HCl [Xopenex] 1.25 mg INHALATION Q12H 06/25/21 [History Last Taken 08/05/21] docusate sodium 60 mg FEEDING TUBE DAILY 07/21/21 [History Last Taken 08/05/21] levalbuterol HCl 1.25 mg INHALATION Q4H PRN 08/06/21 [History Last Taken Unknown] ertapenem 1 g IM Q24H 30 Days 08/08/21 [Rx Last Taken Unknown] Allergy/AdvReac Type Severity Reaction Status Date / Time linezolid Allergy Severe Other - Verified 08/25/21 07:56 seizure & coma vancomycin Allergy Severe Other - Verified 08/25/21 07:56 kidney failure tobramycin Allergy Intermediate Other - Verified 08/25/21 07:56 turned beet red nafcillin Allergy Mild Rash Verified 08/25/21 07:56 benzoin Allergy Unknown Rash Verified 08/25/21 07:56 milk Allergy Unknown Other Verified 08/25/21 07:56 soy Allergy Unknown Other Verified 08/25/21 07:56 polyethylene glycol 3350 AdvReac Unknown Hives Verified 08/25/21 07:56 [From Miralax] Family History Grandmother Cancer maternal Other Adopted Surgical History derotatox ostomies eyes straightened Gastrostomy tube in place H/O spinal fusion Presence of intrathecal baclofen pump rods to back Status post Jorje fundoplication surgery on gland under tongue tendonatomies Tracheostomy status Social History household members: other details: Mother and is vent dependent housing: house Smoking Status: Never smoker second hand exposure: No alcohol intake: never substance use type: does not use ROS Review of Systems ROS Unobtainable: due to mental condition Vital Signs Vital Signs Vital Signs: 08/25/21 08:04 Temperature 99.9 F H Temperature Source Temporal Pulse Rate 70 Respiratory Rate 16 Respiratory Pattern Normal Blood Pressure 128/94 H Blood Pressure Mean 105 Blood Pressure Source Monitor Blood Pressure Position Supine Blood Pressure Location Left Arm Pulse Ox 100 Oxygen Delivery Method Room Air Weight Weight: 49.442 kg Body Mass Index (BMI) 26.2 Physical Exam Narrative Patient with cerebral palsy, contractures and not really mobile. Trach and on chronic ventilator. no new issues. Const alert and no apparent distress Narrative: saba catheter draining clear yellow Back/Spine Back/Spine Narrative: severe scoliosis Skin no rashes or lesions noted Results Lab / Micro Data Labs: Laboratory Results - last 24 hr 08/25/21 08:01: POC Glucose 96 Micro: Microbiology 08/25/21 07:45 Interface Orders SARS-CoV-2 Antigen (Rapid) - Final Assessment & Plan Assessment/Plan (1) Renal calculi: PLAN: proceed with right renal extracorporeal shockwave lithotripsy as scheduled Procedure Criteria Type of Procedure Procedure Type: Elective Elective Risks - COVID COVID Risk Discussion: The surgeon/proceduralist and patient have discussed in detail the risk of exposure to and/or potential harm posed by the COVID-19 virus with having a surgery/procedure at this time versus the risk of delaying the surgery/procedure. It is not possible to know either the risk of delaying the surgery or procedure or chance of getting an infection with perfect accuracy, but a joint decision was made between the patient and the surgeon/proceduralist to proceed at this time with the scheduled surgery/procedure as indicated on the consent form.
--- NOTE | 2021-08-25 09:57 | PCM.OPRPT ---
Problems Associated Problem List Diagnoses (1) Renal calculi: Report of Operation Date of Procedure: 08/25/21 Pre-Operative Diagnosis: Right renal calculi Post-Operative Diagnosis: Same Surgery/Procedure Performed:: Right renal extracorporal shockwave lithotripsy Surgeon: Samaria Anaya Type of Anesthesia: General Description of Procedure: The patient is a 31-year-old female with cerebral palsy and contractures who has undergone 2 ureteroscopy and laser lithotripsy's for stone removal along with stent insertion. She now presents for shockwave lithotripsy for remaining stone fragments. Informed consent was obtained with her family. The patient was taken to the operating room and placed on the operating room table. She was appropriately padded and secured to the table. Anesthesia monitored the head, neck, airway, IV access and vital signs throughout the case. Once anesthesia was appropriately administered, she was aligned with the lithotripter. The stone fragments were easily identified. 3000 shocks were applied and the stones appeared to be well fragmented at the conclusion of the case. The patient was then awakened and taken to the recovery room in good condition. There were no complications during this procedure. Grafts/Implants Used: None Complications None Admit VTE Documentation VTE Present on Admission: No VTE Mechan Device Prophylaxis: None VTE Pharm Prophylaxis ordered?: No Reason prophylaxis not ordered:: Treatment Not Indicated
--- NOTE | 2021-08-25 09:59 | PCM.DC ---
Discharge Instructions Diet Discharge Diet: - (Resume her regular tube feeds schedule) Activity Discharge Activity: Return to Normal Activity Additional Activity Instructions:: Okay to resume intermittent straight cath 3 times a day Dressing / Incision Call your doctor if you observe: Fever of 101 or Higher, Inability to urinate, Inability to have a bowel movement and Uncontrolled pain Follow Up Care Please Follow Up With: Samaria Anaya MD When: call office for planning Test Results: Test results from this visit will be discussed in further detail at your follow-up appointment, if applicable. Discharge Plan Admission Attending Provider: Samaria Anaya Primary Care Provider: Sandra Bermudez Discharge Orders/Prescriptions Prescriptions: Continued oxcarbazepine [Trileptal] 300 mg/5 mL (60 mg/mL) suspension 8 ml GT BID RF: 0 insulin aspart U-100 100 unit/mL (3 mL) insulin pen 8 units SQ 4X/DAY RF: 0 baclofen 20 MG tablet 30 mg GT TID RF: 0 ferrous sulfate 15 mg iron (75 mg)/mL Syringe 60 mg feeding tube DAILY RF: 0 diazepam 5 mg/5 mL (1 mg/mL) Solution 7 mg feeding tube BID RF: 0 diazepam 5 mg/5 mL (1 mg/mL) Solution 5 mg feeding tube DAILY@1400 RF: 0 methenamine hippurate [Hiprex] 1 gram Tablet 1 g feeding tube BID RF: 0 cholecalciferol (vitamin D3) 10 mcg/mL (400 unit/mL) Drops 50 mcg feeding tube DAILY RF: 0 Daily Fiber (psyllium-aspart) 3 gram Powder In Packet 1 packet G-tube DAILY PRN PRN (Reason: Constipation) Qty: 0 RF: 0 docusate sodium 60 mg/15 mL Syrup 60 mg feeding tube DAILY RF: 0 levalbuterol HCl [Xopenex] 1.25 mg/3 mL Solution For Nebulization 1.25 mg INHALATION Q12H RF: 0 Wellesse Multi Vitamin Plus 400 mcg-200 mg/30 mL Liquid 10 ml PO DAILY RF: 0 Vitamin C 500 mg/15 mL Liquid 10 ml PO DAILY RF: 0 acidophilus-pectin, citrus 25 million cell -100 mg tablet 1 tab G-tube DAILY RF: 0 levalbuterol HCl 1.25 mg/3 mL Solution For Nebulization 1.25 mg INHALATION Q4H PRN (Reason: Shortness Of Breath Or Wheezing) RF: 0 ertapenem 1 gram recon soln 1 g IM Q24H 30 Days RF: 0 Referrals / Follow Up: Sandra Bermudez DO [Primary Care Provider] - Disposition Disposition (needs filled in before D/C Order can be placed): Home, Self Care
[2021-08-25 10:29] LABS: Internal QC Validated? YES +Cl - CLEAR BKGD; Pregnancy, Urine Negative Negative
--- NOTE | 2021-08-25 12:25 | EKG12_ITS ---
Test Reason : POSTOP Blood Pressure : / mmHG Vent. Rate : 054 BPM Atrial Rate : 054 BPM P-R Int : 126 ms QRS Dur : 080 ms QT Int : 406 ms P-R-T Axes : 021 011 055 degrees QTc Int : 385 ms Sinus bradycardia with sinus arrhythmia Otherwise normal ECG When compared with ECG of 06-AUG-2021 13:09, Vent. rate has decreased BY 77 BPM Confirmed by KAITLIN LEIJA, FROYLAN ([id number]), editor at large KRYSTYNA ANDERSON ([id number]) on 08/27/2021 2:02:50 PM Referred By: Samaria Anaya Confirmed By:FROYLAN MADRIGAL MD
--- NOTE | 2021-08-25 14:19 | SUR.PHASEII ---
Waiting for [facility] to take pt home.
== END 2021-08-25 14:31 | disposition home or self-care (01) ==
LOC: SDC 07:27 → AC 07:28
PROVIDERS: Anesthesiology; PCP Internal Medicine; Referring Provider Urology; Visit Provider Urology
PROC: (CPT 50590; principal; 2021-08-25 08:40)
DX: N20.0 Calculus of kidney (principal); G80.9 Cerebral palsy, unspecified; F70 Mild intellectual disabilities; E55.9 Vitamin D deficiency, unspecified; M41.40 Neuromuscular scoliosis, site unspecified; Z93.0 Tracheostomy status; Z93.1 Gastrostomy status; Z74.01 Bed confinement status; Z79.4 Long term (current) use of insulin; Z79.899 Other long term (current) drug therapy; Z20.822 Contact with and (suspected) exposure to COVID-19
CPT/HCPCS: 00873; 50590; 81025; 82962; 87426; 93005; J7120

== ENCOUNTER → 2021-09-11 14:12 | Outpatient (CLI) | payer MEDICAID, SELFPAY | PROVIDERS: PCP Internal Medicine; Visit Provider Internal Medicine | DX: R00.1 Bradycardia, unspecified (principal) | CPT/HCPCS: 93225; 93226 ==

== ENCOUNTER 2021-09-13 16:45 | Inpatient (IN) | payer MEDICAID, SELFPAY ==
[2021-09-13] VITALS (12 sets, daily range): BP systolic 105–146; BP diastolic 62–95; PULSE 101–135; RESP 16–24; TEMP 37–38.2; O2SAT 99–100; BMI 22.5; BMI 25.2
--- NOTE | 2021-09-13 17:02 | EKG12_ITS ---
Test Reason : FEVER Blood Pressure : / mmHG Vent. Rate : 133 BPM Atrial Rate : 133 BPM P-R Int : 140 ms QRS Dur : 082 ms QT Int : 306 ms P-R-T Axes : 032 005 068 degrees QTc Int : 455 ms Sinus tachycardia Otherwise normal ECG Confirmed by MINGO LEIJA, KOBY ([id number]), business editor LIZZIE GONZALEZ ([id number]) on 09/17/2021 10:05:36 AM Referred By: DAVID Confirmed By:KOBY AGUILA MD
--- NOTE | 2021-09-13 17:10 | EX.ED.DYSGE1 ---
HPI <Dr. Jake Winslow, - Last Filed: 09/13/21 19:38> Narrative Narrative: 31-year-old female presents with her mother for fever. Apparently she developed a fever yesterday. Patient was most recently given ibuprofen to her G-tube at about noon. She presents with a fever again. Patient's mother states that she was just on meropenem through a midline at home. This was for a UTI. She had been hospitalized for this previously. She had taken all of the antibiotics for 2 weeks and notes that the fever returned shortly after. Patient does have to be self catheterized by her mother. There is concern for UTI. Patient has history of kidney stones as well. Patient is chronically on a ventilator and has a trach. Her oxygen levels have been normal. Patient has not had any rashes. Mother is concerned that her throat looks red and she thinks she sees exudates in there. [facility] <Dr. Jake Winslow, - Last Filed: 09/13/21 19:38> [facility] Medical History Allergic rhinitis due to other allergen Amenorrhea Bedbound Bronchiectasis without acute exacerbation Bronchitis Cerebral palsy Chronic respiratory failure Diabetes Hyperglycemia Irregular menstrual cycle Kidney stones Lactic acid acidosis Mild mental retardation Neuromuscular scoliosis Pancreatitis Paraplegia PICC (peripherally inserted central catheter) in place Pneumonia Recurrent UTI Renal calculi Renal calculus or stone Respiratory acidosis Seizure Severe sepsis Skin tag of vaginal mucosa 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 Thrush Urinary tract infection due to extended-spectrum beta lactamase (ESBL) producing Escherichia coli Visual disturbance Vitamin D deficiency Home Medications baclofen 30 mg GT TID 09/02/13 [History Last Taken 08/05/21] oxcarbazepine 300 mg/5 mL (60 mg/mL) oral suspension 8 ml GT BID ml 08/28/17 [History Last Taken 08/25/21 06:00] insulin aspart U-100 100 unit/mL (3 mL) subcutaneous pen 8 units SQ 4X/DAY 09/20/20 [History Last Taken 08/05/21] ferrous sulfate 60 mg FEEDING TUBE DAILY 02/28/21 [History Last Taken 08/05/21] cholecalciferol (vitamin D3) 50 mcg FEEDING TUBE DAILY 05/20/21 [History Last Taken 08/05/21] diazepam 5 mg FEEDING TUBE DAILY@1400 05/20/21 [History Last Taken 08/05/21] diazepam 7 mg FEEDING TUBE BID 05/20/21 [History Last Taken 08/05/21] methenamine hippurate [Hiprex] 1 g FEEDING TUBE BID 05/20/21 [History Last Taken 08/05/21] Daily Fiber (psyllium-aspart) 1 packet G-TUBE DAILY PRN PRN #0 ea 05/24/21 [Rx Last Taken 08/05/21] Vitamin C 10 ml PO DAILY 06/25/21 [History Last Taken 08/05/21] [place] Multi Vitamin Plus 10 ml PO DAILY 06/25/21 [History Last Taken 08/05/21] acidophilus-pectin, citrus 1 tab G-TUBE DAILY 06/25/21 [History Last Taken 08/05/21] levalbuterol HCl [Xopenex] 1.25 mg INHALATION Q12H 06/25/21 [History Last Taken 08/05/21] docusate sodium 60 mg FEEDING TUBE DAILY 07/21/21 [History Last Taken 08/05/21] levalbuterol HCl 1.25 mg INHALATION Q4H PRN 08/06/21 [History Last Taken Unknown] ertapenem 1 g IM Q24H 30 Days 08/08/21 [Rx Last Taken Unknown] cefdinir 300 mg PO BID #200 ml 09/16/21 [Rx Last Taken Unknown] Allergy/AdvReac Type Severity Reaction Status Date / Time linezolid Allergy Severe Other - Verified 09/13/21 16:49 seizure & coma vancomycin Allergy Severe Other - Verified 09/13/21 16:49 kidney failure tobramycin Allergy Intermediate Other - Verified 09/13/21 16:49 turned beet red nafcillin Allergy Mild Rash Verified 09/13/21 16:49 benzoin Allergy Unknown Rash Verified 09/13/21 16:49 milk Allergy Unknown Other Verified 09/13/21 16:49 soy Allergy Unknown Other Verified 09/13/21 16:49 polyethylene glycol 3350 AdvReac Unknown Hives Verified 09/13/21 16:49 [From Miralax] Family History Grandmother Cancer maternal Other Adopted Surgical History derotatox ostomies eyes straightened Gastrostomy tube in place H/O spinal fusion Presence of intrathecal baclofen pump rods to back Status post Jorje fundoplication surgery on gland under tongue tendonatomies Tracheostomy status Social History household members: other details: Mother and is vent dependent housing: house Smoking Status: Never smoker second hand exposure: No alcohol intake: never substance use type: does not use ROS <Dr. Jake Winslow, DO - Last Filed: 09/13/21 19:38> ROS ED ROS Narrative Unable to get history from the patient but mother is concerned for sore throat and fever. Review of Systems ROS Unobtainable: due to mental status EXAM <Dr. Jake Winslow, - Last Filed: 09/13/21 19:38> Physical Exam Const Vital Signs: 09/13/21 16:46 09/13/21 16:49 09/13/21 16:52 Temperature 100.8 F H 100.8 F H Temperature Source Temporal Temporal Pulse Rate 133 H 133 H Respiratory Rate 24 H 24 H Respiratory Effort Normal Non-Labored Blood Pressure 105/94 H 105/94 H Blood Pressure Mean 97 97 Pulse Ox 100 100 Oxygen Delivery Method Trach Collar Trach Collar 09/13/21 17:06 09/13/21 18:49 09/13/21 19:02 Temperature 100.6 F H 98.7 F 98.6 F Temperature Source Temporal Temporal Temporal Pulse Rate 135 H 124 H Respiratory Rate 20 H 18 Respiratory Effort Blood Pressure 131/95 H 141/86 H Blood Pressure Mean 107 104 Pulse Ox 99 100 Oxygen Delivery Method Trach Collar Trach Collar 09/13/21 19:03 Temperature 98.6 F Temperature Source Temporal Pulse Rate 126 H Respiratory Rate 18 Respiratory Effort Blood Pressure 146/72 H Blood Pressure Mean 96 Pulse Ox 100 Oxygen Delivery Method Trach Collar Positive well nourished Constitutional Narrative: Smiles on examination. General Appearance ED: NAD; Negative for pallor HEENT Reports moist mucous membranes HEENT Narrative: Posterior oropharynx has limited visualization but there does appear to be some erythema. Negative for trauma Eyes PERRL and EOMs intact bilaterally General Eye ED: Negative for pale conjunctiva Neck no lymphadenopathy and supple Cardio regular rhythm Rate: tachycardic GI normal to inspection, nondistended, normoactive bowel sounds Back/Spine no CVA tenderness Extremity normal to inspection General Extremety ED: Negative for edema General Extremity: Negative for edema Neuro Sensorium / Orientation: alert Psych Psych Narrative: Mental status at baseline Skin no rashes or lesions noted General Skin Exam: Negative for jaundice or pallor <Dr. Alfredo Eastman MD - Last Filed: 09/20/21 15:43> Physical Exam Const Vital Signs: 09/13/21 16:46 09/13/21 16:49 09/13/21 16:52 Temperature 100.8 F H 100.8 F H Temperature Source Temporal Temporal Pulse Rate 133 H 133 H Respiratory Rate 24 H 24 H Respiratory Effort Normal Non-Labored Blood Pressure 105/94 H 105/94 H Blood Pressure Mean 97 97 Pulse Ox 100 100 Oxygen Delivery Method Trach Collar Trach Collar 09/13/21 17:06 09/13/21 18:49 09/13/21 19:02 Temperature 100.6 F H 98.7 F 98.6 F Temperature Source Temporal Temporal Temporal Pulse Rate 135 H 124 H Respiratory Rate 20 H 18 Respiratory Effort Blood Pressure 131/95 H 141/86 H Blood Pressure Mean 107 104 Pulse Ox 99 100 Oxygen Delivery Method Trach Collar Trach Collar 09/13/21 19:03 Temperature 98.6 F Temperature Source Temporal Pulse Rate 126 H Respiratory Rate 18 Respiratory Effort Blood Pressure 146/72 H Blood Pressure Mean 96 Pulse Ox 100 Oxygen Delivery Method Trach Collar MDM <Dr. Jake Winslow DO - Last Filed: 09/13/21 19:38> [facility] Narrative Medical decision making narrative: Patient presenting with fever, tachycardia history of sepsis. Sepsis work-up was initiated. Most likely diagnosis is UTI and patient previously on meropenem and she is given this as well as IV fluids. CBC shows a leukocytosis of 16.8 with a left shift. Hemoglobin hematocrit are stable. PT/INR normal. Renal function is normal. Mild hyponatremia at 130. Potassium is normal. Glucose is 259 without anion gap. AST is 60 and alkaline phosphate is 132 otherwise unremarkable LFTs. Urinalysis is positive for UTI. COVID-19 testing is negative. Chest x-ray on my interpretation shows no acute cardiopulmonary process and the radiologist does agree. EKG shows a sinus tachycardia with a ventricular rate of 133 bpm. This is likely driven by fever as well she was given Tylenol through her G-tube. Her fever is now improved 98.6. Heart rate is down to 116 at 1930. High-sensitivity troponin is 21. Patient's mother requested a rapid strep which was negative. Lactic acid 2.4. CT of the abdomen pelvis without contrast to ensure there are no kidney stones or hydronephrosis and this is not present. There is no inflammation around the kidneys. Patient discussed with hospitalist for admission due to UTI and sepsis. Impression: 1. UTI 2. Sepsis Lab Data Labs: Laboratory Results - last 24 hr 09/13/21 09/13/21 09/13/21 17:05 17:05 17:05 WBC 16.8 H RBC 3.42 L Hgb 10.8 L Hct 30.4 L MCV 88.9 MCH 31.6 MCHC 35.5 RDW Std Deviation 41.6 RDW Coeff of Anne 12.7 Plt Count 263 MPV 10.4 Immature Gran % (Auto) 0.500 Neut % (Auto) 84.2 H Lymph % (Auto) 4.4 L [place] % (Auto) 10.5 H Eos % (Auto) 0.2 Baso % (Auto) 0.2 Absolute Neuts (auto) 14.1 H Absolute Lymphs (auto) 0.73 L Nucleated RBC % 0 Differential Comment SCANNED Diff Path Review January foll PT 14.5 INR 1.2 APTT 33.1 Sodium 130 L Potassium 3.6 Chloride 93 L Carbon Dioxide 27.0 Anion Gap 10 BUN 10 Creatinine 0.62 Estim Creat Clear Calc 101.57 Est GFR (MDRD) Af Amer 145 Est GFR (MDRD) Non-Af 120 BUN/Creatinine Ratio 16.2 Glucose 259 H Lactic Acid Calcium 9.0 Total Bilirubin 0.20 AST 60 H ALT 56 Alkaline Phosphatase 132 H Troponin I High Sens 21 Total Protein 7.8 Albumin 3.2 Globulin 4.6 H Albumin/Globulin Ratio 0.7 L Urine Color Urine Clarity Urine pH Ur Specific [place] Urine Protein Urine Glucose (UA) Urine Ketones Urine Occult Blood Urine Nitrite Urine Bilirubin Urine Urobilinogen Ur Leukocyte Esterase Urine RBC Urine WBC Ur Squamous Epith Cells Urine Bacteria Urine Mucus 09/13/21 09/13/21 09/13/21 17:05 17:10 17:55 WBC RBC Hgb Hct MCV MCH MCHC RDW Std Deviation RDW Coeff of Anne Plt Count MPV Immature Gran % (Auto) Neut % (Auto) Lymph % (Auto) [place] % (Auto) Eos % (Auto) Baso % (Auto) Absolute Neuts (auto) Absolute Lymphs (auto) Nucleated RBC % Differential Comment Diff Path Review PT INR APTT Sodium Potassium Chloride Carbon Dioxide Anion Gap BUN Creatinine Estim Creat Clear Calc Est GFR (MDRD) Af Amer Est GFR (MDRD) Non-Af BUN/Creatinine Ratio Glucose Lactic Acid Cancelled 2.4 H* Calcium Total Bilirubin AST ALT Alkaline Phosphatase Troponin I High Sens Total Protein Albumin Globulin Albumin/Globulin Ratio Urine Color Yellow Urine Clarity Cloudy Urine pH 7.0 Ur Specific [place] 1.010 Urine Protein 15 H Urine Glucose (UA) 1000 H Urine Ketones 5 H Urine Occult Blood 50 H Urine Nitrite Negative Urine Bilirubin Negative Urine Urobilinogen Normal Ur Leukocyte Esterase 500 H Urine RBC 0-5 SEEN Urine WBC 25-50 SEEN Ur Squamous Epith Cells 0-5 SEEN Urine Bacteria 3+ Urine Mucus 0 SEEN Radiography Diagnostic Testing: Clinical Impression(s) from Imaging Studies Abdomen/Pelvis CT 09/13/21 17:11 IMPRESSION: No hydronephrosis. Right ureter stent. Right renal calculi. Electronically Signed: John Hagan MD ([place]) at 18:06 EST , Service support , Chest X-Ray 09/13/21 17:45 IMPRESSION: Stable, nonacute x-ray examination of the chest. Electronically Signed: John Hagan MD ([place]) at 18:07 EST , Service support , <Dr. Alfredo Eastman MD - Last Filed: 09/20/21 15:43> [facility] Lab Data Labs: Laboratory Results - last 24 hr 09/13/21 09/13/21 09/13/21 17:05 17:05 17:05 WBC 16.8 H RBC 3.42 L Hgb 10.8 L Hct 30.4 L MCV 88.9 MCH 31.6 MCHC 35.5 RDW Std Deviation 41.6 RDW Coeff of Anne 12.7 Plt Count 263 MPV 10.4 Immature Gran % (Auto) 0.500 Neut % (Auto) 84.2 H Lymph % (Auto) 4.4 L [place] % (Auto) 10.5 H Eos % (Auto) 0.2 Baso % (Auto) 0.2 Absolute Neuts (auto) 14.1 H Absolute Lymphs (auto) 0.73 L Nucleated RBC % 0 Differential Comment SCANNED Diff Path Review May foll PT 14.5 INR 1.2 APTT 33.1 Sodium 130 L Potassium 3.6 Chloride 93 L Carbon Dioxide 27.0 Anion Gap 10 BUN 10 Creatinine 0.62 Estim Creat Clear Calc 101.57 Est GFR (MDRD) Af Amer 145 Est GFR (MDRD) Non-Af 120 BUN/Creatinine Ratio 16.2 Glucose 259 H Lactic Acid Calcium 9.0 Total Bilirubin 0.20 AST 60 H ALT 56 Alkaline Phosphatase 132 H Troponin I High Sens 21 Total Protein 7.8 Albumin 3.2 Globulin 4.6 H Albumin/Globulin Ratio 0.7 L Urine Color Urine Clarity Urine pH Ur Specific [place] Urine Protein Urine Glucose (UA) Urine Ketones Urine Occult Blood Urine Nitrite Urine Bilirubin Urine Urobilinogen Ur Leukocyte Esterase Urine RBC Urine WBC Ur Squamous Epith Cells Urine Bacteria Urine Mucus 09/13/21 09/13/21 09/13/21 17:05 17:10 17:55 WBC RBC Hgb Hct MCV MCH MCHC RDW Std Deviation RDW Coeff of Anne Plt Count MPV Immature Gran % (Auto) Neut % (Auto) Lymph % (Auto) [place] % (Auto) Eos % (Auto) Baso % (Auto) Absolute Neuts (auto) Absolute Lymphs (auto) Nucleated RBC % Differential Comment Diff Path Review PT INR APTT Sodium Potassium Chloride Carbon Dioxide Anion Gap BUN Creatinine Estim Creat Clear Calc Est GFR (MDRD) Af Amer Est GFR (MDRD) Non-Af BUN/Creatinine Ratio Glucose Lactic Acid Cancelled 2.4 H* Calcium Total Bilirubin AST ALT Alkaline Phosphatase Troponin I High Sens Total Protein Albumin Globulin Albumin/Globulin Ratio Urine Color Yellow Urine Clarity Cloudy Urine pH 7.0 Ur Specific [place] 1.010 Urine Protein 15 H Urine Glucose (UA) 1000 H Urine Ketones 5 H Urine Occult Blood 50 H Urine Nitrite Negative Urine Bilirubin Negative Urine Urobilinogen Normal Ur Leukocyte Esterase 500 H Urine RBC 0-5 SEEN Urine WBC 25-50 SEEN Ur Squamous Epith Cells 0-5 SEEN Urine Bacteria 3+ Urine Mucus 0 SEEN Radiography Diagnostic Testing: Clinical Impression(s) from Imaging Studies Abdomen/Pelvis CT 09/13/21 17:11 IMPRESSION: No hydronephrosis. Right ureter stent. Right renal calculi. Electronically Signed: John Hagan MD ([place]) at 18:06 EST , Service support , Chest X-Ray 09/13/21 17:45 IMPRESSION: Stable, nonacute x-ray examination of the chest. Electronically Signed: John Hagan MD ([place]) at 18:07 EST , Service support , Discharge Plan Disposition Disposition: Acute Care Hospital [facility] Discharge Date/Time: 09/13/21 21:04
--- NOTE | 2021-09-13 17:11 | CT_ITS ---
STUDY: CT ABDOMEN AND PELVIS WITHOUT CONTRAST REASON FOR EXAM: Female, 31 years old. fever hx of kidney stones RADIATION DOSAGE (If Supplied By Facility): CTDIvol = ( 8.51 ) mGy, DLP = ( 378.45 ) mGycm TECHNIQUE: Transaxial images were obtained from the dome of the diaphragm to the symphysis pubis without oral contrast, and without intravenous contrast. Sagittal and coronal images were reconstructed. Individualized dose optimization techniques were used for this CT. COMPARISON: 07/24/2021 FINDINGS: The visualized lung bases are unremarkable. Coronary artery calcification. There is decreased attenuation of the liver consistent with steatosis. Normal gallbladder and extrahepatic biliary system. Normal spleen. Normal pancreas. Normal bilateral adrenal glands. Nonobstructive right calculi. The largest calculus is in the lower pole and measures 8 mm. there is a right-sided double-J stent catheter is seen with the proximal tip in the right renal pelvis. Small amount of air is seen within the renal collecting system in keeping with the placement of a right double-J stent catheter. Distal tip is in the right side of the bladder. Tiny nonobstructive left intrarenal calculi. Once again, a percutaneous gastrostomy tube is seen within the stomach. Normal small intestine. Normal colon. There is non-visualization of the appendix. Normal abdominal aorta. Normal inferior vena cava. Normal retroperitoneum. Normal urinary bladder. Stable uterus. Normal abdominal wall. There are diffuse degenerative changes of the visualized lumbar spine. Multilevel fusion hardware with similar scoliosis.. CT/Abdomen/Pelvis without Cont IMPRESSION: No hydronephrosis. Right ureter stent. Right renal calculi. Electronically Signed: John Hagan MD ([place]) at 18:06 EST , Service support ,
[2021-09-13 17:24] LABS: Absolute Lymphocyte Count 0.73 X10^3/uL (0.83-4.51); Absolute Neutrophil Count 14.1 X10^3/uL (2.0-7.7); Basophil# 0.03 X10^3/uL; Basophil% 0.2 % (0-1); Eosinophil# 0.04 X10^3/uL; Eosinophils% 0.2 % (0-5); Hematocrit 30.4 % (37-47); Hemoglobin 10.8 g/dL (12.0-15.0); Lymphocyte # 0.73 X10^3/ul (0.83-4.51); Lymphocyte % 4.4 % (19-41); Mean Corp Hgb Conc 35.5 g/dL (32-36); Mean Corpuscular Hgb 31.6 pg (27.0-32.0); Mean Corpuscular Volume 88.9 fL (81-99); Mean Platelet Vol. 10.4 fl (6.2-12.0); Monocyte# 1.77 X10^3/uL; Monocyte% 10.5 % (0-10); NRBC Flagged by Analyzer 0 % (0-5); Neutrophil # 14.12 X10^3/uL (2.7-7.7); Neutrophil % 84.2 % (47-70); POSITIVE DIFFERENTIAL YES; Platelet Count 263 K/mm3 (150-450); RBC Distribution Width CV 12.7 % (11.6-14.6); RBC Distribution Width SD 41.6 fl (35.1-43.9); Red Blood Count 3.42 M/mm3 (4.2-5.4); White Blood Count 16.8 K/mm3 (4.4-11.0)
[2021-09-13 17:31] LABS: Mucous, Urine 0 SEEN /hpf (<or=2+)
[2021-09-13 17:33] LABS: Differential Indicated SCAN CRITERIA MET
[2021-09-13 17:36] LABS: International Normalized Ratio 1.2; Partial Thromboplast Time 33.1 Seconds (24.1-36.2); Prothrombin Time (Protime)PT. 14.5 SECONDS (11.7-14.9)
[2021-09-13 17:39] LABS: Color, Urine Yellow (Yellow); Glucose, Dipstick 1000 mg/dl (Normal); Ketone-Dipstick 5 mg/dl (Negative); Leukocyte Esterase-Dipstick 500 /ul (Negative); Nitrite-Dipstick Negative (Negative); Occult Blood-Urine 50 /ul (Negative); Protein-Dipstick 15 mg/dl (Negative); Urine Bilirubin Dipstick Negative (Negative); Urine Clarity Cloudy (Clear); Urine Urobilinogen Normal (Normal)
--- NOTE | 2021-09-13 17:45 | RAD_ITS ---
STUDY: X-RAY CHEST REASON FOR EXAM: Female, 31 years old. fever TECHNIQUE: AP COMPARISON: 08/09/2021 FINDINGS: Persistent hypoinflation with scarring in the left lung base. No airspace consolidation. There is no demonstrated pleural abnormality. Normal size heart. Normal mediastinum and glenn. Normal visualized pulmonary arteries. Normal visualized aortic arch and descending thoracic aorta. Tracheostomy stable. Thoracolumbar fusion hardware for scoliosis stable. Normal visualized ribs, clavicles, and shoulders. Right ureter stent partially visualized. RAD/Chest 1 View (Portable) IMPRESSION: Stable, nonacute x-ray examination of the chest. Electronically Signed: John Hagan MD ([place]) at 18:07 EST , Service support ,
[2021-09-13 17:55] LABS: Differential Comment SCANNED
[2021-09-13] MEDS: Acetaminophen 650 MG/20 ML UDC JT (18:03)
[2021-09-13 18:11] LABS: Squamous Epithelial Cells - UA 0-5 SEEN /hpf (5-10)
[2021-09-13 18:12] LABS: Bacteria 3+ /hpf (None Seen)
[2021-09-13 18:13] LABS: Red Blood Cells-Urine 0-5 SEEN /hpf (0-5); White Blood Cells 25-50 SEEN /hpf (0-5)
[2021-09-13 18:37] LABS: Lactic Acid 2.4 mmol/L (0.4-1.9)
[2021-09-13 18:51] LABS: ALB/GLOB Ratio 0.7 RATIO (0.9-2.4); AST(SGOT) 60 U/L (15-37); Alanine Aminotransfer ALT/SGPT 56 U/L (13-56); Albumin, Serum 3.2 g/dL (3.2-5.0); Alkaline Phosphatase 132 U/L (45-117); Anion Gap 10 (5-15); BUN 10 mg/dL (7-18); BUN/Creat Ratio 16.2 RATIO (10-20); Chloride 93 mmol/L (98-107); Creatinine, Serum 0.62 mg/dL (0.55-1.02); EST Glomerular Filtration Rate 120 mL/min (>60); Est Glom Filt Rate - Afr Amer 145 mL/min (>60); Estimated Creatinine Clearance 101.57 ml/min; Globulin 4.6 g/dL (2.2-4.2); Glucose 259 mg/dL (74-106); Potassium 3.6 mmol/L (3.5-5.1); Protein, Total 7.8 g/dL (6.4-8.2); Sodium Level 130 mmol/L (136-145); Troponin-I HS 21 pg/mL (3.0-54.0)
--- NOTE | 2021-09-13 19:31 | HP.PCM.HOS_ITS ---
HPI - General General Date of Admission: 09/13/21 HPI Narrative 31-year-old female presents with her mother for fever. Patient developed a fever yesterday that the mother recorded at 102. The patient was given Tylenol alternating every 4 hours with ibuprofen for fever control however the patient's fever continued so she brought patient in. The patient does have mild mucus production routinely via the trach stoma but clear whitish sputum has been increasing in last couple days. Has not noticed any respiratory breathing issues or excessive cough. Mother is concerned that her throat looks more red. Bowel habits are normal and patient goes about 3-4 times per week, mother uses [employer]. Denies recent sick contacts. Other states that this is the fourth time she has had a infection since May, and it often happens soon after pt stops antibiotic therapy. Her last Ertapenem through [facility] finished 1 week ago. Presentation to the ER the patient was tachycardic to 133 and had a fever of 100.8 for which she was given Tylenol and it did improve to 98.6. She was given some IV fluids (1L) and a dose of meropenem, and urine/blood cultures were obtained. UA showed infection with elevated glucose and clearly infected. Patient remained maintained stable blood pressures, most recent 146/72 with appropriate oxygenation. EKG showed sinus tachycardia and a CT scan was done to evaluate for a stone, and there were no findings of calcu or hydronephrosis. Recent sensivities resistance to merrem, susceptable to Imipenem [facility] Medical History (Updated 09/13/21 @ 19:[address] 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 Thrush Urinary tract infection due to extended-spectrum beta lactamase (ESBL) producing Escherichia coli Visual disturbance Vitamin D deficiency Home Medications baclofen 30 mg GT TID 09/02/13 [History Last Taken 08/05/21] oxcarbazepine 300 mg/5 mL (60 mg/mL) oral suspension 8 ml GT BID ml 08/28/17 [H istory Last Taken 08/25/21 06:00] insulin aspart U-100 100 unit/mL (3 mL) subcutaneous pen 8 units SQ 4X/DAY 09/20/20 [History Last Taken 08/05/21] ferrous sulfate 60 mg FEEDING TUBE DAILY 02/28/21 [History Last Taken 08/05/21] cholecalciferol (vitamin D3) 50 mcg FEEDING TUBE DAILY 05/20/21 [History Last Taken 08/05/21] diazepam 5 mg FEEDING TUBE DAILY@1400 05/20/21 [History Last Taken 08/05/21] diazepam 7 mg FEEDING TUBE BID 05/20/21 [History Last Taken 08/05/21] methenamine hippurate [Hiprex] 1 g FEEDING TUBE BID 05/20/21 [History Last Taken 08/05/21] Daily Fiber (psyllium-aspart) 1 packet G-TUBE DAILY PRN PRN #0 ea 05/24/21 [Rx Last Taken 08/05/21] Vitamin C 10 ml PO DAILY 06/25/21 [History Last Taken 08/05/21] [place] Multi Vitamin Plus 10 ml PO DAILY 06/25/21 [History Last Taken 07/15 12/01] acidophilus-pectin, citrus 1 tab G-TUBE DAILY 06/25/21 [History Last Taken 08/05/21] levalbuterol HCl [Xopenex] 1.25 mg INHALATION Q12H 06/25/21 [History Last Taken 08/05/21] docusate sodium 60 mg FEEDING TUBE DAILY 07/21/21 [History Last Taken 08/05/21] levalbuterol HCl 1.25 mg INHALATION Q4H PRN 08/06/21 [History Last Taken Unknown] ertapenem 1 g IM Q24H 30 Days 08/08/21 [Rx Last Taken Unknown] Allergy/AdvReac Type Severity Reaction Status Date / Time linezolid Allergy Severe Other - Verified 09/13/21 16:49 seizure & coma vancomycin Allergy Severe Other - Verified 09/13/21 16:49 kidney failure tobramycin Allergy Intermediate Other - Verified 09/13/21 16:49 turned beet red nafcillin Allergy Mild Rash Verified 09/13/21 16:49 benzoin Allergy Unknown Rash Verified 09/13/21 16:49 milk Allergy Unknown Other Verified 09/13/21 16:49 soy Allergy Unknown Other Verified 09/13/21 16:49 polyethylene glycol 3350 AdvReac Unknown Hives Verified 09/13/21 16:49 [From Miralax] Family History Grandmother Cancer maternal Other Adopted Surgical History derotatox ostomies eyes straightened Gastrostomy tube in place H/O spinal fusion Presence of intrathecal baclofen pump rods to back Status post Jorje fundoplication surgery on gland under tongue tendonatomies Tracheostomy status Social History household members: other details: Mother and is vent dependent housing: house Smoking Status: Never smoker second hand exposure: No alcohol intake: never substance use type: does not use ROS Review of Systems ROS Unobtainable: due to mental condition Vital Signs Vital Signs Vital Signs: 09/13/21 16:46 09/13/21 16:49 09/13/21 16:52 Temperature 100.8 F H 100.8 F H Temperature Source Temporal Temporal Pulse Rate 133 H 133 H Respiratory Rate 24 H 24 H Respiratory Effort Normal Non-Labored Blood Pressure 105/94 H 105/94 H Blood Pressure Mean 97 97 Pulse Ox 100 100 Oxygen Delivery Method Trach Collar Trach Collar 09/13/21 17:06 09/13/21 18:49 09/13/21 19:02 Temperature 100.6 F H 98.7 F 98.6 F Temperature Source Temporal Temporal Temporal Pulse Rate 135 H 124 H Respiratory Rate 20 H 18 Respiratory Effort Blood Pressure 131/95 H 141/86 H Blood Pressure Mean 107 104 Pulse Ox 99 100 Oxygen Delivery Method Trach Collar Trach Collar 09/13/21 19:03 Temperature 98.6 F Temperature Source Temporal Pulse Rate 126 H Respiratory Rate 18 Respiratory Effort Blood Pressure 146/72 H Blood Pressure Mean 96 Pulse Ox 100 Oxygen Delivery Method Trach Collar Weight Weight: 107 lb 14.314 oz Body Mass Index (BMI) 22.5 Physical Exam Narrative Well nourished, he has upper extremity contractures Constitutional Narrative: Smiles on examination. Does not voice any sound General Appearance ED: NAD; Negative for pallor HEENT Reports moist mucous membranes HEENT Narrative: moist membranes Eyes PERRL and EOMs intact bilaterally General Eye ED: Negative for pale conjunctiva Neck no lymphadenopathy and supple Cardio regular rhythm Rate: tachycardic GI normal to inspection, nondistended, normoactive bowel sounds, incisional scar where previous baclofen pump was removed Extremity Muscle atrophy, immobile General Extremity: Negative for edema Neuro Sensorium / Orientation: alert Psych Psych Narrative: Averbal mental status at baseline Results Lab / Micro Data Result Diagrams: 09/13/21 17:05 09/13/21 17:05 Labs: Laboratory Results - last 24 hr 09/13/21 17:05: WBC 16.8 H, RBC 3.42 L, Hgb 10.8 L, Hct 30.4 L, MCV 88.9, MCH 31.6, MCHC 35.5, RDW Std Deviation 41.6, RDW Coeff of Anne 12.7, Plt Count 263, M PV 10.4, Immature Gran % (Auto) 0.500, Neut % (Auto) 84.2 H, Lymph % (Auto) 4.4 L, [place] % (Auto) 10.5 H, Eos % (Auto) 0.2, Baso % (Auto) 0.2, Absolute Neuts (auto) 14.1 H, Absolute Lymphs (auto) 0.73 L, Nucleated RBC % 0, Differential Comment SCANNED, Diff Path Review January foll 09/13/21 17:05: PT 14.5, INR 1.2, APTT 33.1 09/13/21 17:05: Sodium 130 L, Potassium 3.6, Chloride 93 L, Carbon Dioxide 27.0, Anion Gap 10, BUN 10, Creatinine 0.62, Estim Creat Clear Calc 101.57, Est GFR (MDRD) Af Amer 145, Est GFR (MDRD) Non-Af 120, BUN/Creatinine Ratio 16.2, Glucose 259 H, Calcium 9.0, Total Bilirubin 0.20, AST 60 H, ALT 56, Alkaline [place] sphatase 132 H, Troponin I High Sens 21, Total Protein 7.8, Albumin 3.2, Glob ulin 4.6 H, Albumin/Globulin Ratio 0.7 L 09/13/21 17:05: Lactic Acid Cancelled 09/13/21 17:10: Urine Color Yellow, Urine Clarity Cloudy, Urine pH 7.0, Ur Specific [place] 1.010, Urine Protein 15 H, Urine Glucose (UA) 1000 H, Urine Ketones 5 H, Urine Occult Blood 50 H, Urine Nitrite Negative, Urine Bilirubin Negative, Urine Urobilinogen Normal, Ur Leukocyte Esterase 500 H, Urine RBC 0-5 SEEN, Urine WBC 25-50 SEEN, Ur Squamous Epith Cells 0-5 SEEN, Urine Bacteria 3+, Urine Mucus 0 SEEN 09/13/21 17:55: Lactic Acid 2.4 H* Micro: Microbiology 09/13/21 17:10 Interface Orders Group A Streptococcus Rapid Screen - Preliminary 09/13/21 17:04 Nasal Secretion SARS-CoV-2 Antigen (Rapid) - Final Radiology Impression Abdomen/Pelvis CT 09/13/21 17:11 IMPRESSION: No hydronephrosis. Right ureter stent. Right renal calculi. Electronically Signed: John Hagan MD ([place]) at 18:06 EST , Service support , Chest X-Ray 09/13/21 17:45 IMPRESSION: Stable, nonacute x-ray examination of the chest. Electronically Signed: John Hagan MD ([place]) at 18:07 EST , Service support , Assessment & Plan Assessment/Plan (1) Sepsis: QUALIFIERS: Sepsis type: sepsis due to unspecified organism Sepsis acute organ dysfunction status: with acute organ dysfunction Severe sepsis acute organ dysfunction type: unspecified Severe sepsis shock status: without septic shock Qualified Code(s): A41.9 - Sepsis, unspecified organism; R65.20 - Severe sepsis without septic shock (2) UTI (urinary tract infection): (3) Ventilator dependent: (4) Hyperglycemia: PLAN: Acute Complicated UTI w/ Hx ESBL UTI with chronic self catheterization and Recent Ureteral Stenting with calculi w/ Acute Lactic Acidosis: Patient mated to PCU, CT scan with satisfactory appearance of patient's right-sided JJ stent and no hydronephrosis -maintained on her chronic vent settings with trach care routine -Admit to PCU -Tylenol and Ibuprofen for fevers -continue on IV Cefotetan 1 gram q12 hrs, based on most recent sensitivities in July. Sensitive to Cefotetan -pending cultures of urine/blood -Control glucose secondary to sepsis with SSI, and home Subq 8 units 4x/day -CXR reviewed, do not see signs of PNA -LR 125 an hour, evaluate need for ongoing IV fluids tomorrow. -Primary team to reach out to urology if new changes or needs. 2. 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 Chronic Hyponatremia: Admission sodium 130, monitor tomorrow. Correct BG 4. Diabetes mellitus type II: Will continue home insulin regimen, continue TFs, accu checks routinely w/ SSI 5. DVT prophylaxis: SCDs, Lovenox. 6. CODE status: Patient HCPOA is her mother who is present. DNR-CCA, allowance of continued ventilation via tracheostomy but no CPR or use of paddles. Alfredo Eastman MD Charges/Coding Visit Charges Inpatient E&M: 87450 Init Hosp L3
[2021-09-13 22:01] LABS: Reflex Lactate? Y
[2021-09-13] MEDS: diazePAM 5 MG Tablet GT (22:33)
[2021-09-13] MEDS: diazePAM 2 MG Tablet 5 MG GT (22:33)
[2021-09-13] MEDS: Lactated Ringers 1,000 ML 125 ML IV (22:34)
[2021-09-13] MEDS: Baclofen 10 MG Tablet 30 MG GT (22:34)
[2021-09-13] MEDS: Ibuprofen 100 MG/5 ML UDC PO (23:00)
[2021-09-13] MEDS: Insulin Lispro 100 UNIT/ML INSULN.PEN SC (23:01)
[2021-09-13] MEDS: Insulin Lispro 100 UNIT/ML INSULN.PEN 8 UNIT SC (23:01)
[2021-09-13 23:58] LABS: Lactic Acid 1.8 mmol/L (0.4-1.9)
[2021-09-14] VITALS (19 sets, daily range): BP systolic 82–134; BP diastolic 45–92; PULSE 55–128; RESP 14–28; TEMP 36.3–37.9; O2SAT 98–100
[2021-09-14 03:28] LABS: Absolute Lymphocyte Count 1.52 X10^3/uL (0.83-4.51); Absolute Neutrophil Count 9.1 X10^3/uL (2.0-7.7); Basophil# 0.03 X10^3/uL; Basophil% 0.2 % (0-1); Eosinophil# 0.12 X10^3/uL; Eosinophils% 0.9 % (0-5); Hematocrit 26.9 % (37-47); Hemoglobin 8.9 g/dL (12.0-15.0); Lymphocyte # 1.52 X10^3/ul (0.83-4.51); Lymphocyte % 11.7 % (19-41); Mean Corp Hgb Conc 33.1 g/dL (32-36); Mean Corpuscular Hgb 30.9 pg (27.0-32.0); Mean Corpuscular Volume 93.4 fL (81-99); Mean Platelet Vol. 10.5 fl (6.2-12.0); Monocyte# 2.09 X10^3/uL; Monocyte% 16.2 % (0-10); NRBC Flagged by Analyzer 0 % (0-5); Neutrophil # 9.11 X10^3/uL (2.7-7.7); Neutrophil % 70.5 % (47-70); POSITIVE DIFFERENTIAL YES; Platelet Count 251 K/mm3 (150-450); RBC Distribution Width SD 44.2 fl (35.1-43.9); Red Blood Count 2.88 M/mm3 (4.2-5.4); White Blood Count 12.9 K/mm3 (4.4-11.0)
[2021-09-14 03:52] LABS: Differential Indicated SCAN CRITERIA MET
[2021-09-14 04:18] LABS: ALB/GLOB Ratio 0.6 RATIO (0.9-2.4); AST(SGOT) 18 U/L (15-37); Alanine Aminotransfer ALT/SGPT 37 U/L (13-56); Albumin, Serum 2.4 g/dL (3.2-5.0); Alkaline Phosphatase 99 U/L (45-117); Anion Gap 4 (5-15); BUN 7 mg/dL (7-18); BUN/Creat Ratio 17.4 RATIO (10-20); Calcium,Total 8.5 mg/dL (8.5-10.1); Chloride 103 mmol/L (98-107); EST Glomerular Filtration Rate 196 mL/min (>60); Est Glom Filt Rate - Afr Amer 237 mL/min (>60); Estimated Creatinine Clearance 153.13 ml/min; Globulin 3.9 g/dL (2.2-4.2); Glucose 97 mg/dL (74-106); Potassium 3.7 mmol/L (3.5-5.1); Protein, Total 6.3 g/dL (6.4-8.2); Sodium Level 137 mmol/L (136-145)
[2021-09-14] MEDS: Lactated Ringers 1,000 ML 125 ML IV (06:02)
--- NOTE | 2021-09-14 06:09 | EX.PCM.CONCC ---
Assessment & Plan Assessment/Plan (1) UTI (urinary tract infection): PLAN: RECOMMENDATIONS: 1. Obtain infectious diseases consultation. Continue antimicrobials. 2. Gentle IV fluid hydration. 3. Continue tube feeds per home regimen. 4. Continue vent support per home regimen. 5. The patient is medically stable for transfer out of the intensive care unit. Will sign off. IMPRESSIONS: 1. Recurrent urinary tract infection The patient has a history of frequent hospitalizations due to complicated urinary tract infections. She has been seen in the past already by urology and infectious diseases. The patient appears to be stable from a clinical perspective. There is no evidence of end organ dysfunction. The patient is at her baseline from a mental status perspective and from a home vent perspective. Okay to continue antimicrobials. I would recommend that infectious diseases be consulted to evaluate the patient as well. Cultures are currently pending. 2. Chronic respiratory failure/history of spastic quadriplegia/cerebral palsy/multiple recent antibiotics Complicates care, management, recovery and prognosis. Continue home tube feed regimen. Continue home ventilator support for baseline. This note was generated with [employer] dictation software. It may contain incorrect words, spelling, and punctuation that were not noted in checking the note before signing. HPI Consult Data Date of Consult: 09/14/21 HPI Narrative Reason for Consultation: Sepsis HPI Narrative: The patient is a 31-year-old female, with a history as outlined below, who presented to the emergency department on September 13 with a fever. The patient has a history of frequent hospitalizations due to complicated urinary tract infections. The patient underwent right renal extracorporeal shockwave lithotripsy due to a right renal calculi on August 25. The patient was last admitted to the hospital in July 2021 with a complicated urinary tract infection. The patient has a history of cerebral palsy with spastic quadriplegia along with chronic respiratory failure with tracheostomy in situ. On presentation to the emergency department, the patient was noted to have a low-grade fever and was tachycardic and tachypneic. Laboratory evaluation revealed an elevated white blood cell count to 17,000. Chemistry profile was largely unrevealing. Lactate was elevated at 2.4. Total bilirubin was normal. Urine analysis was positive for leukocyte esterase and 3+ urine bacteria. Chest x-ray demonstrated no acute cardiopulmonary process. CT abdomen/pelvis demonstrated a right renal calculi with right ureteral stent and no evidence of hydronephrosis. The patient received supplemental IV fluids and antimicrobials. She was admitted to the medical intensive care unit for further management. Overnight, the patient has remained hemodynamically stable on her home ventilator settings. Her father, who is present at the bedside, feels that she is back to her baseline from his perspective. 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 Thrush Urinary tract infection due to extended-spectrum beta lactamase (ESBL) producing Escherichia coli Visual disturbance Vitamin D deficiency Home Medications baclofen 30 mg GT TID 09/02/13 [History Last Taken 08/05/21] oxcarbazepine 300 mg/5 mL (60 mg/mL) oral suspension 8 ml GT BID ml 08/28/17 [History Last Taken 08/25/21 06:00] insulin aspart U-100 100 unit/mL (3 mL) subcutaneous pen 8 units SQ 4X/DAY 09/20/20 [History Last Taken 08/05/21] ferrous sulfate 60 mg FEEDING TUBE DAILY 02/28/21 [History Last Taken 08/05/21] cholecalciferol (vitamin D3) 50 mcg FEEDING TUBE DAILY 05/20/21 [History Last Taken 08/05/21] diazepam 5 mg FEEDING TUBE DAILY@1400 05/20/21 [History Last Taken 08/05/21] diazepam 7 mg FEEDING TUBE BID 05/20/21 [History Last Taken 08/05/21] methenamine hippurate [Hiprex] 1 g FEEDING TUBE BID 05/20/21 [History Last Taken 08/05/21] Daily Fiber (psyllium-aspart) 1 packet G-TUBE DAILY PRN PRN #0 ea 05/24/21 [Rx Last Taken 08/05/21] Vitamin C 10 ml PO DAILY 06/25/21 [History Last Taken 08/05/21] [place] Multi Vitamin Plus 10 ml PO DAILY 06/25/21 [History Last Taken 08/05/21] acidophilus-pectin, citrus 1 tab G-TUBE DAILY 06/25/21 [History Last Taken 08/05/21] levalbuterol HCl [Xopenex] 1.25 mg INHALATION Q12H 06/25/21 [History Last Taken 08/05/21] docusate sodium 60 mg FEEDING TUBE DAILY 07/21/21 [History Last Taken 08/05/21] levalbuterol HCl 1.25 mg INHALATION Q4H PRN 08/06/21 [History Last Taken Unknown] ertapenem 1 g IM Q24H 30 Days 08/08/21 [Rx Last Taken Unknown] Allergy/AdvReac Type Severity Reaction Status Date / Time linezolid Allergy Severe Other - Verified 09/13/21 16:49 seizure & coma vancomycin Allergy Severe Other - Verified 09/13/21 16:49 kidney failure tobramycin Allergy Intermediate Other - Verified 09/13/21 16:49 turned beet red nafcillin Allergy Mild Rash Verified 09/13/21 16:49 benzoin Allergy Unknown Rash Verified 09/13/21 16:49 milk Allergy Unknown Other Verified 09/13/21 16:49 soy Allergy Unknown Other Verified 09/13/21 16:49 polyethylene glycol 3350 AdvReac Unknown Hives Verified 09/13/21 16:49 [From Miralax] Family History Grandmother Cancer maternal Other Adopted Surgical History derotatox ostomies eyes straightened Gastrostomy tube in place H/O spinal fusion Presence of intrathecal baclofen pump rods to back Status post Jorje fundoplication surgery on gland under tongue tendonatomies Tracheostomy status Social History household members: other details: Mother and is vent dependent housing: house Smoking Status: Never smoker second hand exposure: No alcohol intake: never substance use type: does not use ROS Review of Systems ROS Unobtainable: due to mental condition Physical Exam Const alert and no apparent distress Constitutional Narrative: Nonverbal baseline. General Appearance: patient mechanically ventilated HEENT normocephalic and head/scalp atraumatic HEENT Narrative: Macroglossia present Eyes PERRL and EOMs intact bilaterally Neck supple Neck Narrative: Tracheostomy site intact. Chest inspection of chest normal Resp Auscultation: diminished lung sounds Cardio regular rate and regular rhythm GI normal to inspection, nondistended, normoactive bowel sounds Extremity Extremity Narrative: Contracted extremities with spastic quadriplegia. Skin no rashes or lesions noted Neuro Neuro Narrative: Baseline neurological status. Psych Mood & Affect: flat affect Lab / Micro Data Result Diagrams: 09/14/21 03:15 09/14/21 03:15 Labs: Laboratory Results - last 24 hr 09/13/21 17:05: WBC 16.8 H, RBC 3.42 L, Hgb 10.8 L, Hct 30.4 L, MCV 88.9, MCH 31.6, MCHC 35.5, RDW Std Deviation 41.6, RDW Coeff of Anne 12.7, Plt Count 263, MPV 10.4, Immature Gran % (Auto) 0.500, Neut % (Auto) 84.2 H, Lymph % (Auto) 4.4 L, [place] % (Auto) 10.5 H, Eos % (Auto) 0.2, Baso % (Auto) 0.2, Absolute Neuts (auto) 14.1 H, Absolute Lymphs (auto) 0.73 L, Nucleated RBC % 0, Differential Comment SCANNED, Diff Path Review January09/13/21 17:05: PT 14.5, INR 1.2, APTT 33.1 09/13/21 17:05: Sodium 130 L, Potassium 3.6, Chloride 93 L, Carbon Dioxide 27.0, Anion Gap 10, BUN 10, Creatinine 0.62, Estim Creat Clear Calc 101.57, Est GFR (MDRD) Af Amer 145, Est GFR (MDRD) Non-Af 120, BUN/Creatinine Ratio 16.2, Glucose 259 H, Calcium 9.0, Total Bilirubin 0.20, AST 60 H, ALT 56, Alkaline Phosphatase 132 H, Troponin I High Sens 21, Total Protein 7.8, Albumin 3.2, Globulin 4.6 H, Albumin/Globulin Ratio 0.7 L 09/13/21 17:05: Lactic Acid Cancelled 09/13/21 17:10: Urine Color Yellow, Urine Clarity Cloudy, Urine pH 7.0, Ur Specific [place] 1.010, Urine Protein 15 H, Urine Glucose (UA) 1000 H, Urine Ketones 5 H, Urine Occult Blood 50 H, Urine Nitrite Negative, Urine Bilirubin Negative, Urine Urobilinogen Normal, Ur Leukocyte Esterase 500 H, Urine RBC 0-5 SEEN, Urine WBC 25-50 SEEN, Ur Squamous Epith Cells 0-5 SEEN, Urine Bacteria 3+, Urine Mucus 0 SEEN 09/13/21 17:55: Lactic Acid 2.4 H* 09/13/21 23:10: Lactic Acid 1.8 09/14/21 03:15: WBC 12.9 H, RBC 2.88 L, Hgb 8.9 L, Hct 26.9 L, MCV 93.4 D, MCH 30.9, MCHC 33.1 D, RDW Std Deviation 44.2 H, RDW Coeff of Anne 13.0, Plt Count 251, MPV 10.5, Immature Gran % (Auto) 0.500, Neut % (Auto) 70.5 H, Lymph % (Auto) 11.7 L, [place] % (Auto) 16.2 H, Eos % (Auto) 0.9, Baso % (Auto) 0.2, Absolute Neuts (auto) 9.1 H, Absolute Lymphs (auto) 1.52, Nucleated RBC % 0 09/14/21 03:15: Sodium 137, Potassium 3.7, Chloride 103, Carbon Dioxide 30.0, Anion Gap 4 L, BUN 7, Creatinine 0.40 L, Estim Creat Clear Calc 153.13, Est GFR (MDRD) Af Amer 237, Est GFR (MDRD) Non-Af 196, BUN/Creatinine Ratio 17.4, Glucose 97, Calcium 8.5, Magnesium 2.0, Total Bilirubin 0.20, AST 18, ALT 37, Alkaline Phosphatase 99, Total Protein 6.3 L, Albumin 2.4 L, Globulin 3.9, Albumin/Globulin Ratio 0.6 L Micro: Microbiology 09/13/21 17:10 Interface Orders Group A Streptococcus Rapid Screen - Preliminary 09/13/21 17:04 Nasal Secretion SARS-CoV-2 Antigen (Rapid) - Final Radiology Impression Abdomen/Pelvis CT 09/13/21 17:11 IMPRESSION: No hydronephrosis. Right ureter stent. Right renal calculi. Electronically Signed: John Hagan MD ([place]) at 18:06 EST , Service support , Chest X-Ray 09/13/21 17:45 IMPRESSION: Stable, nonacute x-ray examination of the chest. Electronically Signed: John Hagan MD ([place]) at 18:07 EST , Service support , Charges/Coding Visit Charges Inpatient E&M: 22431 Init Hosp L3
[2021-09-14] MEDS: Baclofen 10 MG Tablet 30 MG GT ×3 (07:40→21:22)
[2021-09-14] MEDS: Docusate Sodium 100 MG/10 ML UDC 60 MG GT (07:40)
[2021-09-14] MEDS: Ascorbic Acid 500 MG Tablet GT (07:42)
[2021-09-14] MEDS: diazePAM 5 MG Tablet GT ×3 (07:59→21:27)
[2021-09-14] MEDS: diazePAM 2 MG Tablet 5 MG GT (07:59)
[2021-09-14] MEDS: Insulin Lispro 100 UNIT/ML INSULN.PEN 8 UNIT SC ×3 (08:05→17:25)
[2021-09-14] MEDS: Enoxaparin 40 MG/0.4 ML Syringe SC (08:06)
[2021-09-14 08:21] LABS: Bedside Glucose 88 mg/dL (70-110)
--- NOTE | 2021-09-14 10:15 | PN.HOSP_ITS ---
Subjective Subjective Patient seen and examined. Her father was by her bedside. She was admitted with a complaint of fever found to have UTI. Is the fourth time she started infections in May and she last finished IV ertapenem via midline 1 week ago. She has been managed for sepsis due to UTI. Patient is alert but nonverbal. Father says she is getting better, and is afebrile. He has no other complaints. REview of systems is otherwise negative. Objective Data Objective Data Vital Signs: Vital Signs Temp Pulse Resp BP Pulse Ox 98.5 F 100 19 H 119/69 99 09/14/21 08:00 09/14/21 09:00 09/14/21 09:00 09/14/21 09:00 09/14/21 09:00 Oxygen Flow Rate (L/min) 3 Oxygen Delivery Method Mechanical Ventilator Weight: 104 lb 15.04 oz Body Mass Index (BMI) 25.2 Intake & Output: Intake and Output for Last 24 Hours 09/12/21 09/13/21 09/14/21 23:59 23:59 23:59 Intake Total 1340 / 1360 953.33 / 953.33 Output Total 0 / 0 Balance 1340 / 1360 953.33 / 953.33 Lab / Micro Data Result Diagrams: 09/14/21 03:15 09/14/21 03:15 Labs: Laboratory Results - last 24 hr 09/13/21 17:05: WBC 16.8 H, RBC 3.42 L, Hgb 10.8 L, Hct 30.4 L, MCV 88.9, MCH 31.6, MCHC 35.5, RDW Std Deviation 41.6, RDW Coeff of Anne 12.7, Plt Count 263, MPV 10.4, Immature Gran % (Auto) 0.500, Neut % (Auto) 84.2 H, Lymph % (Auto) 4.4 L, [place] % (Auto) 10.5 H, Eos % (Auto) 0.2, Baso % (Auto) 0.2, Absolute Neuts (auto) 14.1 H, Absolute Lymphs (auto) 0.73 L, Nucleated RBC % 0, Differential Comment SCANNED, Diff Path Review January09/13/21 17:05: PT 14.5, INR 1.2, APTT 33.1 09/13/21 17:05: Sodium 130 L, Potassium 3.6, Chloride 93 L, Carbon Dioxide 27.0, Anion Gap 10, BUN 10, Creatinine 0.62, Estim Creat Clear Calc 101.57, Est GFR (MDRD) Af Amer 145, Est GFR (MDRD) Non-Af 120, BUN/Creatinine Ratio 16.2, Glucose 259 H, Calcium 9.0, Total Bilirubin 0.20, AST 60 H, ALT 56, Alkaline Phosphatase 132 H, Troponin I High Sens 21, Total Protein 7.8, Albumin 3.2, Globulin 4.6 H, Albumin/Globulin Ratio 0.7 L 09/13/21 17:05: Lactic Acid Cancelled 09/13/21 17:10: Urine Color Yellow, Urine Clarity Cloudy, Urine pH 7.0, Ur Specific [place] 1.010, Urine Protein 15 H, Urine Glucose (UA) 1000 H, Urine Ketones 5 H, Urine Occult Blood 50 H, Urine Nitrite Negative, Urine Bilirubin Negative, Urine Urobilinogen Normal, Ur Leukocyte Esterase 500 H, Urine RBC 0-5 SEEN, Urine WBC 25-50 SEEN, Ur Squamous Epith Cells 0-5 SEEN, Urine Bacteria 3+, Urine Mucus 0 SEEN 09/13/21 17:55: Lactic Acid 2.4 H* 09/13/21 23:10: Lactic Acid 1.8 09/14/21 03:15: WBC 12.9 H, RBC 2.88 L, Hgb 8.9 L, Hct 26.9 L, MCV 93.4 D, MCH 30.9, MCHC 33.1 D, RDW Std Deviation 44.2 H, RDW Coeff of Anne 13.0, Plt Count 251, MPV 10.5, Immature Gran % (Auto) 0.500, Neut % (Auto) 70.5 H, Lymph % (Auto) 11.7 L, [place] % (Auto) 16.2 H, Eos % (Auto) 0.9, Baso % (Auto) 0.2, Absolute Neuts (auto) 9.1 H, Absolute Lymphs (auto) 1.52, Nucleated RBC % 0, Diff Path Review January09/14/21 03:15: Sodium 137, Potassium 3.7, Chloride 103, Carbon Dioxide 30.0, Anion Gap 4 L, BUN 7, Creatinine 0.40 L, Estim Creat Clear Calc 153.13, Est GFR (MDRD) Af Amer 237, Est GFR (MDRD) Non-Af 196, BUN/Creatinine Ratio 17.4, Gluco se 97, Calcium 8.5, Magnesium 2.0, Total Bilirubin 0.20, AST 18, ALT 37, Alkaline Phosphatase 99, Total Protein 6.3 L, Albumin 2.4 L, Globulin 3.9, Albumin/Globulin Ratio 0.6 L 09/14/21 08:03: POC Glucose 88 Micro: Microbiology 09/13/21 17:10 Urine Catheter - Catheter Urine Culture - Preliminary 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 Right ureter stent. Right renal calculi. Electronically Signed: John Hagan MD (Brooks) at 18:06 EST , Service support , Chest X-Ray 09/13/21 17:45 IMPRESSION: Stable, nonacute x-ray examination of the chest. Electronically Signed: John Hagan MD (Brooks) at 18:07 EST , Service support , Physical Exam Const alert Constitutional Narrative: nonverbal Exam Limitations: altered mental status HEENT head/scalp atraumatic and moist oral mucous membranes Head and Scalp: normocephalic Eyes PERRL, EOMs intact bilaterally and conjunctivae normal Neck no lymphadenopathy Resp Resp Narrative: on ventilator via tracheostomy. Diminished breath sounds bibasally, no wheezes or crackles. Cardio regular rate, regular rhythm, S1 normal heart sound and S2 normal heart sound GI normal to inspection, nondistended, normoactive bowel sounds, soft to palpation, non-tender and non-distended GI Narrative: PEG tube in place. Extremity Extremity Narrative: chronic contractures of LEs. Peripheral Pulses: Yes pulses 2+ throughout Skin no rashes or lesions noted Neuro Neuro Narrative: nonverbal Sensorium / Orientation: awake and alert Assessment & Plan Assessment/Plan (1) UTI (urinary tract infection): (2) Sepsis: QUALIFIERS: Sepsis type: sepsis due to unspecified organism Sepsis acute organ dysfunction status: with acute organ dysfunction Severe sepsis acute organ dysfunction type: unspecified Severe sepsis shock status: without septic shock Qualified Code(s): A41.9 - Sepsis, unspecified organism; R65.20 - Severe sepsis without septic shock PLAN: #Sepsis due to recurrent complicated UTI * recently completed a course of IV ertapenem via midline * has a history of recent ureteral stenting with calculi as well. * on IV cefotetan * blood and urine cultures are pending * continue gentle hydration with iVF * tylenol and ibuprofen for pain. * wbc is 12.9 today * ##Chronic hypoxic respiratory failure: due to spastic paraplegia. 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 ISS. Accuchecks q6 hrly. #hyponatremia: resolved. #DVT prophylaxis: lovenox Disposition: transfer out of ICU to PCU. Charges/Coding Visit Charges Inpatient E&M: 19800 Subs Hosp L3
[2021-09-14 11:21] LABS: Bedside Glucose 110 mg/dL (70-110)
[2021-09-14] MEDS: Ibuprofen 100 MG/5 ML UDC PO (15:16)
[2021-09-14] MEDS: Albuterol 2.5 MG/3 ML VIAL.NEB. INHALATION (15:17)
[2021-09-14] MEDS: Acetaminophen 325 MG Tablet 650 MG PO (17:26)
[2021-09-14 17:51] LABS: Bedside Glucose 120 mg/dL (70-110)
--- NOTE | 2021-09-14 19:34 | PCS.PANDOC ---
PANDEMIC DOCUMENTATION INITIATED: Date: 04/28/2021 Time: 190
[2021-09-14] MEDS: diazePAM 2 MG Tablet GT (21:27)
[2021-09-14 22:11] LABS: Bedside Glucose 94 mg/dL (70-110)
[2021-09-15] VITALS (7 sets, daily range): BP systolic 110–133; BP diastolic 61–97; PULSE 76–109; RESP 18–22; TEMP 36.9–37.2; O2SAT 96–100
[2021-09-15] MEDS: Baclofen 10 MG Tablet 30 MG GT ×3 (05:17→20:48)
[2021-09-15 06:16] LABS: Absolute Lymphocyte Count 1.46 X10^3/uL (0.83-4.51); Absolute Neutrophil Count 9.1 X10^3/uL (2.0-7.7); Basophil# 0.04 X10^3/uL; Basophil% 0.3 % (0-1); Eosinophil# 0.15 X10^3/uL; Eosinophils% 1.3 % (0-5); Hematocrit 26.4 % (37-47); Hemoglobin 8.9 g/dL (12.0-15.0); Lymphocyte # 1.46 X10^3/ul (0.83-4.51); Lymphocyte % 12.5 % (19-41); Mean Corp Hgb Conc 33.7 g/dL (32-36); Mean Corpuscular Volume 88.9 fL (81-99); Mean Platelet Vol. 10.5 fl (6.2-12.0); Monocyte# 0.86 X10^3/uL; Monocyte% 7.3 % (0-10); NRBC Flagged by Analyzer 0 % (0-5); Neutrophil # 9.13 X10^3/uL (2.7-7.7); Platelet Count 296 K/mm3 (150-450); RBC Distribution Width CV 12.9 % (11.6-14.6); RBC Distribution Width SD 41.9 fl (35.1-43.9); Red Blood Count 2.97 M/mm3 (4.2-5.4); White Blood Count 11.7 K/mm3 (4.4-11.0)
[2021-09-15 06:49] LABS: ALB/GLOB Ratio 0.6 RATIO (0.9-2.4); AST(SGOT) 12 U/L (15-37); Alanine Aminotransfer ALT/SGPT 33 U/L (13-56); Albumin, Serum 2.5 g/dL (3.2-5.0); Alkaline Phosphatase 102 U/L (45-117); Anion Gap 7 (5-15); BUN 6 mg/dL (7-18); BUN/Creat Ratio 13.4 RATIO (10-20); Calcium,Total 9.6 mg/dL (8.5-10.1); Chloride 106 mmol/L (98-107); Creatinine, Serum 0.45 mg/dL (0.55-1.02); EST Glomerular Filtration Rate 173 mL/min (>60); Est Glom Filt Rate - Afr Amer 209 mL/min (>60); Estimated Creatinine Clearance 134.69 ml/min; Globulin 4.5 g/dL (2.2-4.2); Glucose 104 mg/dL (74-106); Magnesium 2.3 mg/dL (1.6-2.6); Potassium 3.9 mmol/L (3.5-5.1); Sodium Level 141 mmol/L (136-145)
[2021-09-15 07:50] LABS: Bedside Glucose 100 mg/dL (70-110)
[2021-09-15] MEDS: Insulin Lispro 100 UNIT/ML INSULN.PEN 8 UNIT SC ×3 (08:06→17:07)
[2021-09-15] MEDS: Enoxaparin 40 MG/0.4 ML Syringe SC (08:48)
[2021-09-15] MEDS: Docusate Sodium 100 MG/10 ML UDC 60 MG GT (08:48)
[2021-09-15] MEDS: Ascorbic Acid 500 MG Tablet GT (08:49)
[2021-09-15] MEDS: diazePAM 2 MG Tablet GT ×2 (08:49→20:48)
[2021-09-15] MEDS: diazePAM 5 MG Tablet GT ×3 (08:49→20:48)
[2021-09-15 11:36] LABS: Bedside Glucose 108 mg/dL (70-110)
--- NOTE | 2021-09-15 11:49 | PN.HOSP_ITS ---
Subjective Subjective Nonverbal, she is smiling today and her father says that she does appear better Objective Data Objective Data Vital Signs: Vital Signs Temp Pulse Resp BP Pulse Ox 98.6 F 97 20 H 114/97 H 100 09/15/21 09:00 09/15/21 09:00 09/15/21 09:00 09/15/21 09:00 09/15/21 09:00 Oxygen Flow Rate (L/min) 3 Oxygen Delivery Method Mechanical Ventilator Weight: 103 lb 13.404 oz Body Mass Index (BMI) 25.2 Intake & Output: Intake and Output for Last 24 Hours 09/14/21 09/15/21 09/16/21 03:59 03:59 03:59 Intake Total 1360 / 1360 3083.33 / 3083.33 200 / 200 Output Total 0 / 0 Balance 1360 / 1360 3083.33 / 3083.33 200 / 200 Lab / Micro Data Result Diagrams: 09/15/21 05:28 09/15/21 05:28 Labs: Laboratory Results - last 24 hr 09/14/21 17:24: POC Glucose 120 H 09/14/21 21:20: POC Glucose 94 09/15/21 05:28: WBC 11.7 H, RBC 2.97 L, Hgb 8.9 L, Hct 26.4 L, MCV 88.9, MCH 30.0, MCHC 33.7, RDW Std Deviation 41.9, RDW Coeff of Anne 12.9, Plt Count 296, MPV 10.5, Immature Gran % (Auto) 0.600, Neut % (Auto) 78.0 H, Lymph % (Auto) 12. 5 L, [place] % (Auto) 7.3, Eos % (Auto) 1.3, Baso % (Auto) 0.3, Absolute Neuts ( auto) 9.1 H, Absolute Lymphs (auto) 1.46, Nucleated RBC % 0 09/15/21 05:28: Sodium 141, Potassium 3.9, Chloride 106, Carbon Dioxide 28.0, Anion Gap 7, BUN 6 L, Creatinine 0.45 L, Estim Creat Clear Calc 134.69, Est GFR (MDRD) Af Amer 209, Est GFR (MDRD) Non-Af 173, BUN/Creatinine Ratio 13.4, Glucose 104, Calcium 9.6, Magnesium 2.3, Total Bilirubin 0.30, AST 12 L, ALT 33, Alkaline Phosphatase 102, Total Protein 7.0, Albumin 2.5 L, Globulin 4.5 H, Albumin/Globulin Ratio 0.6 L 09/15/21 07:46: POC Glucose 100 09/15/21 11:20: POC Glucose 108 Micro: Microbiology 09/13/21 17:10 Urine Catheter - Catheter Urine Culture - Preliminary Escherichia coli 09/13/21 17:10 Interface Orders Group A Streptococcus Rapid Screen - Preliminary 09/13/21 17:04 Nasal Secretion SARS-CoV-2 Antigen (Rapid) - Final Physical Exam Const alert and no apparent distress General Appearance: cooperative HEENT normocephalic and moist oral mucous membranes Eyes PERRL, EOMs intact bilaterally and conjunctivae normal Neck supple and no JVD Resp normal respiratory effort, no retractions, no use of accessory muscles and clear to auscultation bilaterally Auscultation: Negative for crackles, rales, rhonchi or wheezes Cardio regular rate, regular rhythm, S1 normal heart sound, S2 normal heart sound and no murmurs GI soft to palpation, non-tender and non-distended; Negative for hepatosplenomegaly Extremity no clubbing, cyanosis or edema Skin no rashes or lesions noted Neuro no focal motor deficits and no sensory deficits noted Psych affect normal Appearance: appropriate Assessment & Plan Assessment/Plan (1) UTI (urinary tract infection): (2) Sepsis: QUALIFIERS: Sepsis type: sepsis due to unspecified organism Sepsis acute organ dysfunction status: with acute organ dysfunction Severe sepsis acute organ dysfunction type: unspecified Severe sepsis shock status: without septic shock Qualified Code(s): A41.9 - Sepsis, unspecified organism; R65.20 - Severe sepsis without septic shock PLAN: #Sepsis due to recurrent complicated UTI * recently completed a course of IV ertapenem via midline * has a history of recent ureteral stenting with calculi as well. * on IV cefotetan, consult infectious disease * blood and urine cultures are pending * tylenol and ibuprofen for pain. * wbc is improving * ##Chronic hypoxic respiratory failure: due to spastic paraplegia. 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 ISS. Accuchecks q6 hrly. #hyponatremia: resolved. DVT: lovenox Charges/Coding Visit Charges Inpatient E&M: 94970 Subs Hosp L2
[2021-09-15 13:26] LABS: Pathologist Review Reviewed
[2021-09-15 13:40] LABS: Pathologist Review Reviewed
--- NOTE | 2021-09-15 13:40 | CASEMGMT ---
HIREN WILSON assessment: Face to Face with patient's mother, Rina Montero, for initial transition planning/care coordination assessment, as patient is not able to participate in assessment. RN KATIE introduced self and role at [facility]. Patient lying in bed, mother at bedside. Pt's mother willing to participate in assessment and is able to answer all questions appropriately. Care providers, pharmacy, and demographics verified. Rina wishes for patient to discharge home with resumption of [facility] for nursing. Rina states no further needs or concerns at this time. PCP: Sandra Bermudez Specialists: Marek, neurology; Husam, ticker installer; , cytology technologist; Sg, ID; Héctor, uro Preferred Pharmacy: [facility] Insurance: [facility] Prescription Benefit: yes Living Will/HPOA: yes, mother Rina Montero-parents are also guardians LNOK: Mikey/Rinasulema Montero, parents; Mikey Montero Jr, brother Living Arrangements: Pt lives with parent, who are her caregivers. Patient lives in a single story home with ramp to enter the home. Parents provide total care for patient as well as SN from [facility]. Transportation: [facility] DME/HHC: Rina, pt's mother, states that pt's DME needs are met at home. DME includes hospital bed, home ventilator, suction machine, oxygen concentrator with backup portable tanks, tube feeds with all supplies/equipment. Patient is active with [facility] for nursing 3 days per week for 6-8 hrs per day. RANJANA order for [facility] placed and clinicals faxed. Pt's mother states no concerns with taking pt home at discharge. Pt is on disability. Pt/parents do not smoke cigarettes. Mother voices no further concerns/needs. CM to follow for any further discharge planning/needs. Advised mother to ask for CM if any further questions/concerns/needs arise, voices understanding. Disposition Plan: Home with resumption of HHC, family support. SStaten HIREN WILSON
--- NOTE | 2021-09-15 14:06 | CHAPLAIN ---
Type of Pastoral Visit _x__ Initial Visit ___ Follow-up Visit ___ On-call Visit ___ General Patient Visit ___ Spiritual Assessment ___ Family Conference ___ Bereavement ___ Rapid Response ___ Code Blue ___ Other (describe below) Pastoral Care Referral From ___ Patient _x__ Family ___ Nurse ___ Physician ___ Spectrograph Operator ___ Caddy Packer ___ Other (describe below) Sacrament/Intervention __x_ Active listening ___ Anointing ___ Orthodox ___ Bereavement ___ Communion _x__ Jolie exploration ___ ___ Life review _x__ Prayer ___ Reconciliation ___ Sacrament of Sick _x__ Supportive presence ___ Wedding ___ Other (describe below) Pastoral Comments patient is disabled and asleep at time of visit; mother of patient is at bedside and interacts with this mixer lever operator; mother is very open to presence and prayer; mother also gives support through encouragement of healthcare workers; prayer is welcomed; family belong to a local denominational and have friends that give support
[2021-09-15 17:11] LABS: Bedside Glucose 128 mg/dL (70-110)
[2021-09-15] MEDS: Albuterol 2.5 MG/3 ML VIAL.NEB. INHALATION (18:58)
[2021-09-15] MEDS: 0.9% Saline Lock 10 ML Syringe IV (20:48)
[2021-09-15 22:10] LABS: Bedside Glucose 96 mg/dL (70-110)
[2021-09-16 02:50] VITALS: BP 102/61; PULSE 82; RESP 20; TEMP 37.2; O2SAT 100
[2021-09-16 03:00] VITALS: PULSE 90
[2021-09-16] MEDS: Baclofen 10 MG Tablet 30 MG GT ×2 (05:15→14:10)
[2021-09-16 06:29] LABS: Absolute Lymphocyte Count 1.56 X10^3/uL (0.83-4.51); Absolute Neutrophil Count 6.2 X10^3/uL (2.0-7.7); Basophil# 0.03 X10^3/uL; Basophil% 0.4 % (0-1); Eosinophils% 2.3 % (0-5); Hematocrit 28.7 % (37-47); Hemoglobin 9.6 g/dL (12.0-15.0); Lymphocyte # 1.56 X10^3/ul (0.83-4.51); Lymphocyte % 18.2 % (19-41); Mean Corp Hgb Conc 33.4 g/dL (32-36); Mean Corpuscular Volume 92.6 fL (81-99); Mean Platelet Vol. 10.4 fl (6.2-12.0); Monocyte# 0.56 X10^3/uL; Monocyte% 6.5 % (0-10); NRBC Flagged by Analyzer 0 % (0-5); Neutrophil # 6.16 X10^3/uL (2.7-7.7); Neutrophil % 72.1 % (47-70); Platelet Count 321 K/mm3 (150-450); RBC Distribution Width CV 12.9 % (11.6-14.6); RBC Distribution Width SD 43.3 fl (35.1-43.9); White Blood Count 8.6 K/mm3 (4.4-11.0)
[2021-09-16 07:00] VITALS: PULSE 62
[2021-09-16 07:09] LABS: ALB/GLOB Ratio 0.6 RATIO (0.9-2.4); AST(SGOT) 12 U/L (15-37); Alanine Aminotransfer ALT/SGPT 32 U/L (13-56); Albumin, Serum 2.9 g/dL (3.2-5.0); Alkaline Phosphatase 122 U/L (45-117); Anion Gap 8 (5-15); BUN 5 mg/dL (7-18); BUN/Creat Ratio 10.7 RATIO (10-20); Calcium,Total 9.7 mg/dL (8.5-10.1); Chloride 103 mmol/L (98-107); Creatinine, Serum 0.47 mg/dL (0.55-1.02); EST Glomerular Filtration Rate 165 mL/min (>60); Est Glom Filt Rate - Afr Amer 200 mL/min (>60); Estimated Creatinine Clearance 130.87 ml/min; Glucose 109 mg/dL (74-106); Magnesium 2.3 mg/dL (1.6-2.6); Potassium 4.2 mmol/L (3.5-5.1); Protein, Total 7.9 g/dL (6.4-8.2); Sodium Level 137 mmol/L (136-145)
[2021-09-16] MEDS: Albuterol 2.5 MG/3 ML VIAL.NEB. INHALATION (07:26)
[2021-09-16 07:27] VITALS: PULSE 75; RESP 18; O2SAT 100
[2021-09-16 08:08] VITALS: BP 111/83; PULSE 91; RESP 14; TEMP 36.8; O2SAT 100
[2021-09-16] MEDS: Insulin Lispro 100 UNIT/ML INSULN.PEN 8 UNIT SC ×2 (08:09→11:26)
[2021-09-16 08:16] LABS: Bedside Glucose 107 mg/dL (70-110)
[2021-09-16] MEDS: Docusate Sodium 100 MG/10 ML UDC 60 MG GT (09:56)
[2021-09-16] MEDS: Enoxaparin 40 MG/0.4 ML Syringe SC (09:57)
[2021-09-16] MEDS: Ascorbic Acid 500 MG Tablet GT (09:57)
[2021-09-16] MEDS: diazePAM 2 MG Tablet GT (10:03)
[2021-09-16] MEDS: diazePAM 5 MG Tablet GT ×2 (10:03→14:10)
--- NOTE | 2021-09-16 10:56 | CON.PCM.ID_ITS ---
Assessment & Plan Assessment/Plan (1) UTI (urinary tract infection): PLAN: Recurrent esbl ecoli uti/pyelo due to infected R renal stones. Infection returned again after [facility] Did get dose of meropenem in ED, since then has been on cefotetan and continues to improve. Very limited options. Discussed with her father. If she has been able to show continued improvement with cefotetan, will try indefinite omnicef via PEG and closely monitor at home. If worsens, then would plan on picc and restart iv abx. Will follow, thank you, ID followup in 1 month. (2) Paraplegia: (3) Renal calculi: HPI Consult Data Date of Consult: 09/16/21 HPI Narrative HPI Narrative: MANDY RIVERA, is a 31 F with cerebral palsy, paraplegia, recurrent ESBL infection, presented with fever one week after completing course of iv ertapenem. Last stone procedure by Dr. Anaya was 08/25/21. Pt with similar presentation and timing multiple times in the past. Was listless and had progressive fever up to 102 at home. Given dose of meropenem in ED. Has been on cefotetan since then, continues to improve, back to baseline per her father. ROS unobtainable due to mental status. [facility] Medical History Allergic rhinitis due to other allergen Amenorrhea Bedbound Bronchiectasis without acute exacerbation Bronchitis Cerebral palsy Chronic respiratory failure Diabetes Hyperglycemia Irregular menstrual cycle Kidney stones Lactic acid acidosis Mild mental retardation Neuromuscular scoliosis Pancreatitis Paraplegia PICC (peripherally inserted central catheter) in place Pneumonia Recurrent UTI Renal calculi Renal calculus or stone Respiratory acidosis Seizure Severe sepsis Skin tag of vaginal mucosa 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 Thrush Urinary tract infection due to extended-spectrum beta lactamase (ESBL) producing Escherichia coli Visual disturbance Vitamin D deficiency Home Medications baclofen 30 mg GT TID 09/02/13 [History Last Taken 08/05/21] oxcarbazepine 300 mg/5 mL (60 mg/mL) oral suspension 8 ml GT BID ml 08/28/17 [History Last Taken 08/25/21 06:00] insulin aspart U-100 100 unit/mL (3 mL) subcutaneous pen 8 units SQ 4X/DAY 09/20/20 [History Last Taken 08/05/21] ferrous sulfate 60 mg FEEDING TUBE DAILY 02/28/21 [History Last Taken 08/05/21] cholecalciferol (vitamin D3) 50 mcg FEEDING TUBE DAILY 05/20/21 [History Last Taken 08/05/21] diazepam 5 mg FEEDING TUBE DAILY@1400 05/20/21 [History Last Taken 08/05/21] diazepam 7 mg FEEDING TUBE BID 05/20/21 [History Last Taken 08/05/21] methenamine hippurate [Hiprex] 1 g FEEDING TUBE BID 05/20/21 [History Last Taken 08/05/21] Daily Fiber (psyllium-aspart) 1 packet G-TUBE DAILY PRN PRN #0 ea 05/24/21 [Rx Last Taken 08/05/21] Vitamin C 10 ml PO DAILY 06/25/21 [History Last Taken 08/05/21] [place] Multi Vitamin Plus 10 ml PO DAILY 06/25/21 [History Last Taken 08/05/21] acidophilus-pectin, citrus 1 tab G-TUBE DAILY 06/25/21 [History Last Taken 08/05/21] levalbuterol HCl [Xopenex] 1.25 mg INHALATION Q12H 06/25/21 [History Last Taken 08/05/21] docusate sodium 60 mg FEEDING TUBE DAILY 07/21/21 [History Last Taken 08/05/21] levalbuterol HCl 1.25 mg INHALATION Q4H PRN 08/06/21 [History Last Taken Unknown] ertapenem 1 g IM Q24H 30 Days 08/08/21 [Rx Last Taken Unknown] Allergy/AdvReac Type Severity Reaction Status Date / Time linezolid Allergy Severe Other - Verified 09/13/21 16:49 seizure & coma vancomycin Allergy Severe Other - Verified 09/13/21 16:49 kidney failure tobramycin Allergy Intermediate Other - Verified 09/13/21 16:49 turned beet red nafcillin Allergy Mild Rash Verified 09/13/21 16:49 benzoin Allergy Unknown Rash Verified 09/13/21 16:49 milk Allergy Unknown Other Verified 09/13/21 16:49 soy Allergy Unknown Other Verified 09/13/21 16:49 polyethylene glycol 3350 AdvReac Unknown Hives Verified 09/13/21 16:49 [From Miralax] Family History Grandmother Cancer maternal Other Adopted Surgical History derotatox ostomies eyes straightened Gastrostomy tube in place H/O spinal fusion Presence of intrathecal baclofen pump rods to back Status post Jorje fundoplication surgery on gland under tongue tendonatomies Tracheostomy status Social History household members: other details: Mother and is vent dependent housing: house Smoking Status: Never smoker second hand exposure: No alcohol intake: never substance use type: does not use Physical Exam Const no apparent distress General Appearance: cooperative HEENT normocephalic and head/scalp atraumatic Eyes PERRL and EOMs intact bilaterally Neck supple Resp clear to auscultation bilaterally Cardio regular rate and regular rhythm GI normal to inspection, nondistended, normoactive bowel sounds Skin no rashes or lesions noted Lab / Micro Data Result Diagrams: 09/16/21 05:15 09/16/21 05:15 Labs: Laboratory Results - last 24 hr 09/13/21 17:05: Diff Path Review Reviewed 09/14/21 03:15: Diff Path Review Reviewed 09/15/21 11:20: POC Glucose 108 09/15/21 17:05: POC Glucose 128 H 09/15/21 20:43: POC Glucose 96 09/16/21 05:15: WBC 8.6, RBC 3.10 L, Hgb 9.6 L, Hct 28.7 L, MCV 92.6, MCH 31.0, MCHC 33.4, RDW Std Deviation 43.3, RDW Coeff of Anne 12.9, Plt Count 321, MPV 10.4, Immature Gran % (Auto) 0.500, Neut % (Auto) 72.1 H, Lymph % (Auto) 18.2 L, [place] % (Auto) 6.5, Eos % (Auto) 2.3, Baso % (Auto) 0.4, Absolute Neuts (auto) 6.2, Absolute Lymphs (auto) 1.56, Nucleated RBC % 0 09/16/21 05:15: Sodium 137, Potassium 4.2, Chloride 103, Carbon Dioxide 26.0, Anion Gap 8, BUN 5 L, Creatinine 0.47 L, Estim Creat Clear Calc 130.87, Est GFR (MDRD) Af Amer 200, Est GFR (MDRD) Non-Af 165, BUN/Creatinine Ratio 10.7, Glucose 109 H, Calcium 9.7, Magnesium 2.3, Total Bilirubin 0.20, AST 12 L, ALT 32, Alkaline Phosphatase 122 H, Total Protein 7.9, Albumin 2.9 L, Globulin 5.0 H , Albumin/Globulin Ratio 0.6 L 09/16/21 08:07: POC Glucose 107 Micro: Microbiology 09/13/21 17:55 Blood Culture (Wb) - Arm Right Blood Culture - Preliminary No growth in 48 hours. 09/13/21 17:05 Blood Culture (Wb) - Right Hand Blood Culture - Preliminary No growth in 48 hours. 09/13/21 17:10 Interface Orders Group A Streptococcus Rapid Screen - Final 09/13/21 17:10 Urine Catheter - Catheter Urine Culture - Preliminary Escherichia coli
--- NOTE | 2021-09-16 11:14 | CASEMGMT ---
Addendum entered by Mey Weinstein 09/16/21 14:22: Pt's cefdinir suspension e-scribed to [facility] retail pharmacy and they are aware to deliver to pt's room livan as pt's squad en route to take pt home. D/C summ/instructions faxed to [facility] and call to Gala at [facility] to notify of discharge, voices understanding. Mother updated on all, voices understanding and voices no further questions/concerns/needs. Moose MARADIAGA CM Original Note: Per Dr. Bettencourt, pt can go home on po antibx thru her PEG tube and states ok to d/c pt today. RANJANA order and H&P faxed to [facility]. CM to follow. Moose MARADIAGA CM
[2021-09-16 12:06] LABS: Bedside Glucose 118 mg/dL (70-110)
--- NOTE | 2021-09-16 13:56 | PCM.DC ---
Discharge Instructions Diet Discharge Diet: No restrictions Activity Discharge Activity: Return to Normal Activity Dressing / Incision Call your doctor if you observe: Fever of 101 or Higher, Shortness of breath, Dizziness, Fainting spells, Swelling in the ankles, Chest pain and Increased palpitations (irregular heartbeat) Follow Up Care Test Results: Test results from this visit will be discussed in further detail at your follow-up appointment, if applicable. Discharge Plan Admission Admit Date/Time: 09/13/21 19:23 Attending Provider: Maximino Barragan Primary Care Provider: Sandra Bermudez Consulting Providers: Landry Valenzuela ; Rafa Bettencourt Discharge Orders/Prescriptions Prescriptions: New cefdinir 250 mg/5 mL suspension for reconstitution 300 mg PO BID Qty: 200 RF: 3 Continued oxcarbazepine [Trileptal] 300 mg/5 mL (60 mg/mL) suspension 8 ml GT BID RF: 0 insulin aspart U-100 100 unit/mL (3 mL) insulin pen 8 units SQ 4X/DAY RF: 0 baclofen 20 MG tablet 30 mg GT TID RF: 0 ferrous sulfate 15 mg iron (75 mg)/mL Syringe 60 mg feeding tube DAILY RF: 0 diazepam 5 mg/5 mL (1 mg/mL) Solution 7 mg feeding tube BID RF: 0 diazepam 5 mg/5 mL (1 mg/mL) Solution 5 mg feeding tube DAILY@1400 RF: 0 methenamine hippurate [Hiprex] 1 gram Tablet 1 g feeding tube BID RF: 0 cholecalciferol (vitamin D3) 10 mcg/mL (400 unit/mL) Drops 50 mcg feeding tube DAILY RF: 0 Daily Fiber (psyllium-aspart) 3 gram Powder In Packet 1 packet G-tube DAILY PRN PRN (Reason: Constipation) Qty: 0 RF: 0 docusate sodium 60 mg/15 mL Syrup 60 mg feeding tube DAILY RF: 0 levalbuterol HCl [Xopenex] 1.25 mg/3 mL Solution For Nebulization 1.25 mg INHALATION Q12H RF: 0 [place] Multi Vitamin Plus 400 mcg-200 mg/30 mL Liquid 10 ml PO DAILY RF: 0 Vitamin C 500 mg/15 mL Liquid 10 ml PO DAILY RF: 0 acidophilus-pectin, citrus 25 million cell -100 mg tablet 1 tab G-tube DAILY RF: 0 levalbuterol HCl 1.25 mg/3 mL Solution For Nebulization 1.25 mg INHALATION Q4H PRN (Reason: Shortness Of Breath Or Wheezing) RF: 0 ertapenem 1 gram recon soln 1 g IM Q24H 30 Days RF: 0 Referrals / Follow Up: Sandra Bermudez DO [Primary Care Provider] - Within 1 Week Disposition Disposition (needs filled in before D/C Order can be placed): Home, Self Care
--- NOTE | 2021-09-16 14:00 | PCM.DC.SUM ---
Providers Date of Admission: 09/13/21 Primary Care Physician: Dr. Sandra Bermudez DO Consultations 09/13/21 21:23 Consult: Onc/Wound/benzene worker Routine Comment: Reason for Consult:: bedbound patient 09/13/21 22:07 Consult: Manufacturing Engineer Paint / Pulmonary Medicine Routine Consulting Provider: Landry Valenzuela Reason for Consult: sepsis EMERGENT Consult: No Notified: Yes Date Notified: 09/13/21 Time Notified: 22:07 Method of Notification: Verbal 09/16/21 10:34 Consult: Infectious Disease Routine Consulting Provider: Rafa Bettencourt Reason for Consult: chronic uti EMERGENT Consult: No Notified: Yes Date Notified: 09/16/21 Time Notified: 10:35 Method of Notification: Answering Service Reason For Visit: UTI WITH SEPSIS Diagnosis Discharge Diagnosis (1) UTI (urinary tract infection): Status: Acute Code(s): N39.0 - Urinary tract infection, site not specified (2) Paraplegia: Status: Chronic Code(s): G82.20 - Paraplegia, unspecified (3) Renal calculi: Status: Acute Code(s): N20.0 - Calculus of kidney Medications at Discharge Home Medications baclofen 30 mg GT TID 09/02/13 oxcarbazepine 300 mg/5 mL (60 mg/mL) oral suspension 8 ml GT BID ml 08/28/17 insulin aspart U-100 100 unit/mL (3 mL) subcutaneous pen 8 units SQ 4X/DAY 09/20/20 ferrous sulfate 60 mg FEEDING TUBE DAILY 02/28/21 cholecalciferol (vitamin D3) 50 mcg FEEDING TUBE DAILY 05/20/21 diazepam 5 mg FEEDING TUBE DAILY@1400 05/20/21 diazepam 7 mg FEEDING TUBE BID 05/20/21 methenamine hippurate [Hiprex] 1 g FEEDING TUBE BID 05/20/21 Daily Fiber (psyllium-aspart) 1 packet G-TUBE DAILY PRN PRN #0 ea 05/24/21 Vitamin C 10 ml PO DAILY 06/25/21 Wellesse Multi Vitamin Plus 10 ml PO DAILY 06/25/21 acidophilus-pectin, citrus 1 tab G-TUBE DAILY 06/25/21 levalbuterol HCl [Xopenex] 1.25 mg INHALATION Q12H 06/25/21 docusate sodium 60 mg FEEDING TUBE DAILY 07/21/21 levalbuterol HCl 1.25 mg INHALATION Q4H PRN 08/06/21 ertapenem 1 g IM Q24H 30 Days 08/08/21 cefdinir 300 mg PO BID #200 ml 09/16/21 Hospital Course Operations None Procedures None Summary of Care Provided Minutes Spent on Discharge: 35 Hospital Course: Per HPI: 31-year-old female presents with her mother for fever. Patient developed a fever yesterday that the mother recorded at 102. The patient was given Tylenol alternating every 4 hours with ibuprofen for fever control however the patient's fever continued so she brought patient in. The patient does have mild mucus production routinely via the trach stoma but clear whitish sputum has been increasing in last couple days. Has not noticed any respiratory breathing issues or excessive cough. Mother is concerned that her throat looks more red. Bowel habits are normal and patient goes about 3-4 times per week, mother uses [employer]. Denies recent sick contacts. Other states that this is the fourth time she has had a infection since May, and it often happens soon after pt stops antibiotic therapy. Her last Ertapenem through midline finished 1 week ago. Presentation to the ER the patient was tachycardic to 133 and had a fever of 100.8 for which she was given Tylenol and it did improve to 98.6. She was given some IV fluids (1L) and a dose of meropenem, and urine/blood cultures were obtained. UA showed infection with elevated glucose and clearly infected. Patient remained maintained stable blood pressures, most recent 146/72 with appropriate oxygenation. EKG showed sinus tachycardia and a CT scan was done to evaluate for a stone, and there were no findings of calcu or hydronephrosis. Recent sensivities resistance to merrem, susceptable to Imipenem Hospital Course: #Sepsis due to recurrent complicated UTI recently completed a course of IV ertapenem via midline has a history of recent ureteral stenting with calculi as well. on IV cefotetan, consult infectious disease blood and urine cultures are pending tylenol and ibuprofen for pain. wbc is improving 09/16/2021: Doing well today, much more interactive than seems to be feeling better. Infectious disease was consulted and they are recommending indefinite Omnicef via the PEG tube given her chronic issues with UTIs and kidney stones. I discussed this plan with the family and expressed understanding the risk benefits going home and they would like to take her home today. This was cleared with infectious disease. I do recommend that she follow-up with ID as an outpatient as well as with urology to see if there can be some type of orchestration of access to the urologist given the fact that Lesa has to be transported by gurney. ##Chronic hypoxic respiratory failure: due to spastic paraplegia. 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 ISS. Accuchecks q6 hrly. Physical Exam Const alert and no apparent distress General Appearance: cooperative HEENT normocephalic and moist oral mucous membranes Eyes PERRL, EOMs intact bilaterally and conjunctivae normal Neck supple and no JVD Resp normal respiratory effort, no retractions, no use of accessory muscles and clear to auscultation bilaterally Auscultation: Negative for crackles, rales, rhonchi or wheezes Cardio regular rate, regular rhythm, S1 normal heart sound, S2 normal heart sound and no murmurs GI soft to palpation, non-tender and non-distended; Negative for hepatosplenomegaly Extremity no clubbing, cyanosis or edema Skin no rashes or lesions noted Neuro no focal motor deficits and no sensory deficits noted Psych affect normal Appearance: appropriate Weight / BMI Weight Weight: 105 lb 6.095 oz Body Mass Index (BMI) 25.2 ABG / Lab / Microbiology Data Result Diagrams: 09/16/21 05:15 09/16/21 05:15 Laboratory: Laboratory Results - last 24 hr 09/15/21 17:05: POC Glucose 128 H 09/15/21 20:43: POC Glucose 96 09/16/21 05:15: WBC 8.6, RBC 3.10 L, Hgb 9.6 L, Hct 28.7 L, MCV 92.6, MCH 31.0, MCHC 33.4, RDW Std Deviation 43.3, RDW Coeff of Anne 12.9, Plt Count 321, MPV 10.4, Immature Gran % (Auto) 0.500, Neut % (Auto) 72.1 H, Lymph % (Auto) 18.2 L, [place] % (Auto) 6.5, Eos % (Auto) 2.3, Baso % (Auto) 0.4, Absolute Neuts (auto) 6.2, Absolute Lymphs (auto) 1.56, Nucleated RBC % 0 09/16/21 05:15: Sodium 137, Potassium 4.2, Chloride 103, Carbon Dioxide 26.0, Anion Gap 8, BUN 5 L, Creatinine 0.47 L, Estim Creat Clear Calc 130.87, Est GFR (MDRD) Af Amer 200, Est GFR (MDRD) Non-Af 165, BUN/Creatinine Ratio 10.7, Glucose 109 H, Calcium 9.7, Magnesium 2.3, Total Bilirubin 0.20, AST 12 L, ALT 32, Alkaline Phosphatase 122 H, Total Protein 7.9, Albumin 2.9 L, Globulin 5.0 H, Albumin/Globulin Ratio 0.6 L 09/16/21 08:07: POC Glucose 107 09/16/21 11:24: POC Glucose 118 H Microbiology: Microbiology 09/13/21 17:55 Blood Culture (Wb) - Arm Right Blood Culture - Preliminary No growth in 48 hours. 09/13/21 17:05 Blood Culture (Wb) - Right Hand Blood Culture - Preliminary No growth in 48 hours. 09/13/21 17:10 Interface Orders Group A Streptococcus Rapid Screen - Final 09/13/21 17:10 Urine Catheter - Catheter Urine Culture - Preliminary Escherichia coli 09/13/21 17:04 Nasal Secretion SARS-CoV-2 Antigen (Rapid) - Final D/C Instructions Discharge Diet: No restrictions Call your doctor if you observe: Fever of 101 or Higher, Shortness of breath, Dizziness, Fainting spells, Swelling in the ankles, Chest pain and Increased palpitations (irregular heartbeat) Meaningful Use Info Meaningful Use Diagnoses (Choose all that apply): None applicable Discharge Plan Admission Admit Date/Time: 09/13/21 19:23 Attending Provider: Maximino Barragan Primary Care Provider: Sandra Bermudez Consulting Providers: Landry Valenzuela ; Rafa Bettencourt Discharge Orders/Prescriptions Prescriptions: New cefdinir 250 mg/5 mL suspension for reconstitution 300 mg PO BID Qty: 200 RF: 3 Continued oxcarbazepine [Trileptal] 300 mg/5 mL (60 mg/mL) suspension 8 ml GT BID RF: 0 insulin aspart U-100 100 unit/mL (3 mL) insulin pen 8 units SQ 4X/DAY RF: 0 baclofen 20 MG tablet 30 mg GT TID RF: 0 ferrous sulfate 15 mg iron (75 mg)/mL Syringe 60 mg feeding tube DAILY RF: 0 diazepam 5 mg/5 mL (1 mg/mL) Solution 7 mg feeding tube BID RF: 0 diazepam 5 mg/5 mL (1 mg/mL) Solution 5 mg feeding tube DAILY@1400 RF: 0 methenamine hippurate [Hiprex] 1 gram Tablet 1 g feeding tube BID RF: 0 cholecalciferol (vitamin D3) 10 mcg/mL (400 unit/mL) Drops 50 mcg feeding tube DAILY RF: 0 Daily Fiber (psyllium-aspart) 3 gram Powder In Packet 1 packet G-tube DAILY PRN PRN (Reason: Constipation) Qty: 0 RF: 0 docusate sodium 60 mg/15 mL Syrup 60 mg feeding tube DAILY RF: 0 levalbuterol HCl [Xopenex] 1.25 mg/3 mL Solution For Nebulization 1.25 mg INHALATION Q12H RF: 0 Wellesse Multi Vitamin Plus 400 mcg-200 mg/30 mL Liquid 10 ml PO DAILY RF: 0 Vitamin C 500 mg/15 mL Liquid 10 ml PO DAILY RF: 0 acidophilus-pectin, citrus 25 million cell -100 mg tablet 1 tab G-tube DAILY RF: 0 levalbuterol HCl 1.25 mg/3 mL Solution For Nebulization 1.25 mg INHALATION Q4H PRN (Reason: Shortness Of Breath Or Wheezing) RF: 0 ertapenem 1 gram recon soln 1 g IM Q24H 30 Days RF: 0 Referrals / Follow Up: Sandra Bermudez DO [Primary Care Provider] - Within 1 Week Disposition Disposition (needs filled in before D/C Order can be placed): Home, Self Care Charges/Coding Visit Charges Inpatient E&M: 68505 Disch Hosp
[2021-09-16 14:05] VITALS: BP 107/77; PULSE 65; RESP 14; TEMP 36.8; O2SAT 100
--- NOTE | 2021-09-16 14:21 | WOUNDNOTE ---
Was asked to assess the chronic pressure injury to the left ear. mother present in room and states the wound has been healing. removed the duoderm dressing. small amount of drainage noted. there is some mild redness noted. there is a deep tissue pressure injury that measures approx. 0.4cm x 0.5cm. there are no open areas noted. mother states she has been placing a dry dressing under the ear. states she does use a donut cushion as well at times. states the donut does cause some redness near the eye at times so she only uses it for short periods of time. the pressure injury is small and mother state sis much improved. plan is for patient to be discharged home today. denies further questions.
== END 2021-09-16 14:42 | disposition home or self-care (01) | DRG 720 ==
LOC: ED 19:13 → PCU 19:48 → ICU 20:22 → PCU 09-14 12:10
PROVIDERS: Student in an Organized Health Care Education/Training Program; Admitting Provider Hospitalist; Emergency Provider Student in an Organized Health Care Education/Training Program; PCP Internal Medicine; Visit Provider Family Medicine
DX: A41.9 Sepsis, unspecified organism (principal); N39.0 Urinary tract infection, site not specified; N20.0 Calculus of kidney; Z93.1 Gastrostomy status; R65.20 Severe sepsis without septic shock; B96.20 Unspecified Escherichia coli [E. coli] as the cause of diseases classified elsewhere; G80.0 Spastic quadriplegic cerebral palsy; J96.11 Chronic respiratory failure with hypoxia; G40.909 Epilepsy, unspecified, not intractable, without status epilepticus; E11.65 Type 2 diabetes mellitus with hyperglycemia; Z66 Do not resuscitate; R00.1 Bradycardia, unspecified; Z79.4 Long term (current) use of insulin; Z93.0 Tracheostomy status; Z87.442 Personal history of urinary calculi; Z99.11 Dependence on respirator [ventilator] status; Z87.440 Personal history of urinary (tract) infections; F70 Mild intellectual disabilities; Z16.12 Extended spectrum beta lactamase (ESBL) resistance; Z74.01 Bed confinement status; Z98.1 Arthrodesis status; Z88.1 Allergy status to other antibiotic agents; Z91.011 Allergy to milk products
CPT/HCPCS: 36415; 71045; 74176; 80053; 81001; 82962; 83605; 83735; 84484; 85025; 85610; 85730; 87040; 87077; 87086; 87088; 87186; 87426; 87880; 93005; 93225; 93226; 94640; 97802; 99285; J2185; J7040; J7050; J7120; A4216

== ENCOUNTER 2021-10-02 08:28 | Outpatient (CLI) | payer MEDICAID, SELFPAY ==
[2021-10-02 11:38] LABS: Absolute Lymphocyte Count 1.43 X10^3/uL (0.83-4.51); Absolute Neutrophil Count 6.4 X10^3/uL (2.0-7.7); Basophil# 0.03 X10^3/uL; Basophil% 0.3 % (0-1); Eosinophil# 0.17 X10^3/uL; Eosinophils% 1.9 % (0-5); Hematocrit 34.3 % (37-47); Hemoglobin 11.5 g/dL (12.0-15.0); Lymphocyte # 1.43 X10^3/ul (0.83-4.51); Lymphocyte % 16.1 % (19-41); Mean Corp Hgb Conc 33.5 g/dL (32-36); Mean Corpuscular Hgb 29.9 pg (27.0-32.0); Mean Corpuscular Volume 89.3 fL (81-99); Mean Platelet Vol. 10.1 fl (6.2-12.0); Monocyte# 0.79 X10^3/uL; Monocyte% 8.9 % (0-10); NRBC Flagged by Analyzer 0 % (0-5); Neutrophil # 6.42 X10^3/uL (2.7-7.7); Neutrophil % 72.2 % (47-70); Platelet Count 463 K/mm3 (150-450); RBC Distribution Width CV 13.1 % (11.6-14.6); RBC Distribution Width SD 42.2 fl (35.1-43.9); Red Blood Count 3.84 M/mm3 (4.2-5.4); White Blood Count 8.9 K/mm3 (4.4-11.0)
[2021-10-02 12:08] LABS: Vitamin D,25 Hydroxy 57.1 ng/mL
[2021-10-02 12:16] LABS: ALB/GLOB Ratio 0.7 RATIO (0.9-2.4); AST(SGOT) 8 U/L (15-37); Alanine Aminotransfer ALT/SGPT 19 U/L (13-56); Albumin, Serum 3.7 g/dL (3.2-5.0); Alkaline Phosphatase 111 U/L (45-117); Anion Gap 9 (5-15); BUN 8 mg/dL (7-18); BUN/Creat Ratio 16.8 RATIO (10-20); Chloride 93 mmol/L (98-107); Cholesterol 217 mg/dL (200); Creatinine, Serum 0.48 mg/dL (0.55-1.02); EST Glomerular Filtration Rate 162 mL/min (>60); Est Glom Filt Rate - Afr Amer 196 mL/min (>60); Globulin 5.1 g/dL (2.2-4.2); Glucose 119 mg/dL (74-106); High Density Lipoprotein 35 mg/dL; Potassium 3.5 mmol/L (3.5-5.1); Protein, Total 8.8 g/dL (6.4-8.2); Sodium Level 132 mmol/L (136-145); Thyroid Stim Hormone (TSH) 1.04 uIU/mL (0.358-3.74); Triglycerides 371 mg/dL; Very Low Density Lipoprotein 74 mg/dL (5-40)
== END 2021-10-02 23:59 | disposition short-term general hospital (02) ==
LOC: LAB 08:30
PROVIDERS: PCP Internal Medicine; Referring Provider Internal Medicine; Visit Provider Internal Medicine
DX: R00.1 Bradycardia, unspecified (principal); E11.65 Type 2 diabetes mellitus with hyperglycemia; E55.9 Vitamin D deficiency, unspecified
CPT/HCPCS: 36415; 80053; 80061; 82306; 84443; 85025

== ENCOUNTER 2021-10-13 08:44 | Outpatient (CLI) | payer MEDICAID, SELFPAY ==
[2021-10-13 10:48] LABS: Absolute Lymphocyte Count 1.41 X10^3/uL (0.83-4.51); Absolute Neutrophil Count 6.1 X10^3/uL (2.0-7.7); Basophil# 0.03 X10^3/uL; Basophil% 0.4 % (0-1); Eosinophil# 0.13 X10^3/uL; Eosinophils% 1.5 % (0-5); Hematocrit 37.1 % (37-47); Lymphocyte # 1.41 X10^3/ul (0.83-4.51); Lymphocyte % 16.7 % (19-41); Mean Corp Hgb Conc 32.3 g/dL (32-36); Mean Corpuscular Hgb 30.1 pg (27.0-32.0); Mean Platelet Vol. 10.3 fl (6.2-12.0); Monocyte# 0.75 X10^3/uL; Monocyte% 8.9 % (0-10); NRBC Flagged by Analyzer 0 % (0-5); Neutrophil # 6.11 X10^3/uL (2.7-7.7); Neutrophil % 72.1 % (47-70); Platelet Count 286 K/mm3 (150-450); RBC Distribution Width CV 13.9 % (11.6-14.6); RBC Distribution Width SD 47.2 fl (35.1-43.9); Red Blood Count 3.99 M/mm3 (4.2-5.4); White Blood Count 8.5 K/mm3 (4.4-11.0)
[2021-10-13 11:22] LABS: Vitamin B12 1353 pg/mL (211-911)
[2021-10-13 11:52] LABS: Ferritin 19 ng/mL (8-252); Iron 44 ug/dL (50-170)
== END 2021-10-13 23:59 | disposition short-term general hospital (02) ==
LOC: LAB 08:45
PROVIDERS: PCP Internal Medicine; Referring Provider Nurse Practitioner; Visit Provider Nurse Practitioner
DX: D64.9 Anemia, unspecified (principal)
CPT/HCPCS: 36415; 82607; 82728; 82746; 83540; 85025

== ENCOUNTER 2021-10-14 06:17 | Day surgery (SDC) | payer MEDICAID, SELFPAY ==
--- NOTE | 2021-10-14 | CALC_PTH ---
PATIENT: MANDY RIVERA [place] [facility] [place][id number] AGE/SX: 31/F ROOM: RE10/14/[address]: Dr. Samaria Anaya MD : 1990 BED: DIS: 10/14/2021 SPEC #: [id number] RECD: 10/14/21 13:10 STATUS: SHAKIRA FELTON #: [id number] PAUL: 10/14/21 00:[address]: Samaria Anaya DEPT: SURGICAL PATHOLOGY RECD BY: Viktor Jacobs ENTERED: 10/14/21 13:10 SP TYPE: Calculi OTHR DR: Dr. Sandra Bermudez, Tissues: CALCULI Procedures: Surgery Specimen Level I HEADER OPERATION: Cysto, ureteroscopy, stone basket extraction PRE-OP DIAGNOSIS: Right renal calculi TISSUE SUBMITTED: Right ureteral calculi GROSS DIAGNOSIS Right ureteral calculus, removal: Fragments of unremarkable calculi (gross diagnosis only). AM:azam 10/15/2021 COMMENT If chemical analysis is requested on this specimen, please notify the laboratory. GROSS DESCRIPTION Received without fixative labeled with the patient's name and designated right ureteral calculi. The specimen consists of multiple irregular fragments of york calculi that in aggregate measure 2 x 0.6 x 0.1 cm. The entire specimen is saved if stone analysis is requested. / AM:azam 10/14/2021 CPT: 42791
[2021-10-14 07:05] LABS: Bedside Glucose 129 mg/dL (70-110)
[2021-10-14 07:21] VITALS: BP 124/94; PULSE 104; RESP 18; TEMP 37.3; O2SAT 100; BMI 25.7
[2021-10-14] MEDS: Lactated Ringers 1,000 ML 15 ML IV (07:32)
--- NOTE | 2021-10-14 07:55 | SUR.PREOP ---
Pt's mother and father refusing test, verbalizing understanding of reason for test.
[2021-10-14] MEDS: Cefazolin 2 GM in 0.9% Normal Saline 100 ML IV (08:06)
--- NOTE | 2021-10-14 08:10 | HP.PCM_ITS ---
HPI - General HPI Narrative MANDY RIVERA, is a 31 F who presents for repeat ureteroscopy and laser lithotripsy. Informed consent obtained from parents. No new issues. [facility] Medical History (Updated 10/14/21 @ 08:[address] Samaria Anaya MD) Allergic rhinitis due to other allergen Amenorrhea Bedbound Bladder disease Bronchiectasis without acute exacerbation Bronchitis Cerebral palsy Chronic respiratory failure Diabetes Dietary restriction History of Clostridium difficile infection History of renal disease Hyperglycemia Irregular menstrual cycle Kidney stones Lactic acid acidosis Mild mental retardation MRSA infection Neuromuscular scoliosis Non-smoker On home oxygen therapy Pancreatitis Paraplegia PICC (peripherally inserted central catheter) in place Pneumonia Recurrent UTI Redness of skin Renal calculi Renal calculus or stone Respiratory acidosis Seizure Seizures Severe sepsis Skin tag of vaginal mucosa 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 Thrush Urinary tract infection due to extended-spectrum beta lactamase (ESBL) producing Escherichia coli Ventilator dependent Visual disturbance Vitamin D deficiency Home Medications baclofen 30 mg GT TID 09/02/13 [History Last Taken 08/05/21] oxcarbazepine 300 mg/5 mL (60 mg/mL) oral suspension 8 ml GT BID ml 08/28/17 [History Last Taken 10/14/21] insulin aspart U-100 100 unit/mL (3 mL) subcutaneous pen 8 units SQ 4X/DAY 09/20/20 [History Last Taken 08/05/21] ferrous sulfate 60 mg FEEDING TUBE DAILY 02/28/21 [History Last Taken 08/05/21] cholecalciferol (vitamin D3) 50 mcg FEEDING TUBE DAILY 05/20/21 [History Last Taken 08/05/21] diazepam 5 mg FEEDING TUBE DAILY@1400 05/20/21 [History Last Taken 08/05/21] diazepam 7 mg FEEDING TUBE BID 05/20/21 [History Last Taken 10/14/21] methenamine hippurate [Hiprex] 1 g FEEDING TUBE BID 05/20/21 [History Last Taken 08/05/21] Daily Fiber (psyllium-aspart) 1 packet G-TUBE DAILY PRN PRN #0 ea 05/24/21 [Rx Last Taken 08/05/21] Vitamin C 10 ml PO DAILY 06/25/21 [History Last Taken 08/05/21] Wellesse Multi Vitamin Plus 10 ml PO DAILY 06/25/21 [History Last Taken 08/05/21] acidophilus-pectin, citrus 1 tab G-TUBE DAILY 06/25/21 [History Last Taken 08/05/21] levalbuterol HCl [Xopenex] 1.25 mg INHALATION Q12H 06/25/21 [History Last Taken 08/05/21] docusate sodium 60 mg FEEDING TUBE DAILY 07/21/21 [History Last Taken 08/05/21] levalbuterol HCl 1.25 mg INHALATION Q4H PRN 08/06/21 [History Last Taken Unknown ] guaifenesin 100 mg/5 mL oral liquid 200 mg GT Q4H PRN PRN #1000 ml 09/25/21 [Rx Last Taken Unknown] fosfomycin tromethamine 1 packet FEEDING TUBE DAILY 10/14/21 [History Last Taken 10/14/21] Allergy/AdvReac Type Severity Reaction Status Date / Time linezolid Allergy Severe Other - Verified 10/14/21 07:16 seizure & coma vancomycin Allergy Severe Other - Verified 10/14/21 07:16 kidney failure tobramycin Allergy Intermediate Other - Verified 10/14/21 07:16 turned beet red nafcillin Allergy Mild Rash Verified 10/14/21 07:16 benzoin Allergy Unknown Rash Verified 10/14/21 07:16 milk Allergy Unknown Other Verified 10/14/21 07:16 soy Allergy Unknown Other Verified 10/14/21 07:16 polyethylene glycol 3350 AdvReac Unknown Hives Verified 10/14/21 07:16 [From Miralax] Family History Grandmother Cancer maternal Other Adopted Surgical History derotatox ostomies eyes straightened Gastrostomy tube in place H/O spinal fusion Presence of intrathecal baclofen pump rods to back Status post Jorje fundoplication surgery on gland under tongue tendonatomies Tracheostomy status Social History household members: other details: Mother and is vent dependent housing: house Smoking Status: Never smoker second hand exposure: No alcohol intake: never substance use type: does not use ROS Review of Systems ROS Unobtainable: due to mental condition Vital Signs Vital Signs Vital Signs: 10/14/21 07:21 Temperature 99.2 F H Temperature Source Temporal Pulse Rate 104 H Respiratory Rate 18 Respiratory Pattern Normal Blood Pressure 124/94 H Blood Pressure Mean 104 Blood Pressure Source Monitor Blood Pressure Position Semi-Fowlers Blood Pressure Location Right Arm Pulse Ox 100 Oxygen Delivery Method Mechanical Ventilator Oxygen Flow Rate (L/min) 3 Weight Weight: 48.534 kg Body Mass Index (BMI) 25.7 Physical Exam Const alert General Appearance: comfortable HEENT head/scalp atraumatic and moist oral mucous membranes Eyes conjunctivae normal and no scleral icterus Neck supple General: trachea midline and other stable tracheostomy, on vent Lymph Lymphatic: no lymphedema noted Chest Chest Narrative: significant scoliosis Resp Resp Narrative: chronic ventilator dependant GI soft to palpation, non-tender and non-distended external exam normal Back/Spine Back/Spine Narrative: scoliosis Extremity Extremity Narrative: thin, atrophic, non-ambulatory General Extremity: atrophy Skin no rashes or lesions noted, no wounds, skin turgor normal, no jaundice, no petechiae and no mottling Neuro Sensorium / Orientation: awake Results Lab / Micro Data Result Diagrams: 10/14/21 07:50 10/14/21 07:50 Labs: Laboratory Results - last 24 hr 10/14/21 06:55: POC Glucose 129 H Micro: Microbiology 10/14/21 06:55 Nasal Secretion SARS-CoV-2 Antigen (Rapid) - Final Assessment & Plan Assessment/Plan (1) Renal calculi: PLAN: proceed with cystoscopy, right ureteroscopy laser lithotripsy and stent removal possible stent replacement informed consent obtained Procedure Criteria Type of Procedure Procedure Type: Elective Elective Risks - COVID COVID Risk Discussion: The surgeon/proceduralist and patient have discussed in detail the risk of exposure to and/or potential harm posed by the COVID-19 virus with having a surgery/procedure at this time versus the risk of delaying the surgery/procedure. It is not possible to know either the risk of delaying the surgery or procedure or chance of getting an infection with perfect accuracy, but a joint decision was made between the patient and the surgeon/proceduralist to proceed at this time with the scheduled surgery/procedure as indicated on the consent form.
--- NOTE | 2021-10-14 08:15 | OP.PCM_ITS ---
Problems Associated Problem List Diagnoses (1) Renal calculus or stone: (2) UTI (urinary tract infection): Report of Operation Date of Procedure: 10/14/21 Pre-Operative Diagnosis: right renal stones, recurrent urinary tract infections Post-Operative Diagnosis: same Surgery/Procedure Performed:: cystoscopy, right ureteroscopy, stone basket extraction, right ureteral stent change Surgeon: Samaria Anaya Type of Anesthesia: General Specimen's removed: stone fragments Description of Procedure: The patient is a 31-year-old female with a right staghorn calculus now status post extracorporal shockwave lithotripsy and ureteroscopy with laser lithotripsy. She presents for removal of any remaining stones and stent change. Informed consent was obtained by her parents. The patient was taken the operating room placed on the operating room table. Anesthesia monitored the head, neck, airway, IV access and vital signs throughout the case. Once anesthesia was appropriate ministered the patient was placed in dorsal lithotomy position was prepped and draped in usual sterile fashion. The cystoscope was inserted through the urethra under direct visualization and into the urinary bladder. The ureteral stent was observed and grasped with forceps. It was pulled to the urethral meatus and intubated with a 0.035 Glidewire which was seen in the renal pelvis on fluoroscopy. The stent was removed. A second Glidewire was passed alongside. A ureteral reaccessed sheath was inserted under fluoroscopic visualization over one of the wires. At this time ureteroscopy with the flexible ureteroscope was performed. Using stone baskets, a multitude of remaining stone fragments were removed from the calyces and renal pelvis. Once all visible stone fragments were removed, saline was used to flush the calyces. The ureteroscope was used for direct visualization of the entire length of the ureter for removal of the reaccessed sheath. There were no injuries to the ureter identified. There were no ureteral calculi identified. At this time the cystoscope was used to reinsert a 6 Portuguese 20 cm JJ stent. The string was left intact and taped to the patient's right inner thigh. She was awakened and taken to the recovery room in good condition. There were no complications during this procedure. Grafts/Implants Used: 6x20 JJ stent Complications none Admit VTE Documentation VTE Present on Admission: No VTE Mechan Device Prophylaxis: None VTE Pharm Prophylaxis ordered?: No Reason prophylaxis not ordered:: Treatment Not Indicated
--- NOTE | 2021-10-14 08:16 | PCM.DC ---
Discharge Instructions Diet Discharge Diet: - (resume tube feeds) Activity Discharge Activity: Return to Normal Activity Dressing / Incision Call your doctor if you observe: Fever of 101 or Higher, Inability to urinate and Inability to have a bowel movement Follow Up Care Please Follow Up With: Samaria Anaya MD When: call the office. Test Results: Test results from this visit will be discussed in further detail at your follow-up appointment, if applicable. Discharge Plan Admission Attending Provider: Samaria Anaya Primary Care Provider: Sandra Bermudez Discharge Orders/Prescriptions Prescriptions: Continued oxcarbazepine [Trileptal] 300 mg/5 mL (60 mg/mL) suspension 8 ml GT BID RF: 0 insulin aspart U-100 100 unit/mL (3 mL) insulin pen 8 units SQ 4X/DAY RF: 0 guaifenesin 100 mg/5 mL liquid 200 mg GT Q4H PRN PRN (Reason: thick secretions) Qty: 1000 RF: 3 baclofen 20 MG tablet 30 mg GT TID RF: 0 ferrous sulfate 15 mg iron (75 mg)/mL Syringe 60 mg feeding tube DAILY RF: 0 diazepam 5 mg/5 mL (1 mg/mL) Solution 7 mg feeding tube BID RF: 0 diazepam 5 mg/5 mL (1 mg/mL) Solution 5 mg feeding tube DAILY@1400 RF: 0 methenamine hippurate [Hiprex] 1 gram Tablet 1 g feeding tube BID RF: 0 cholecalciferol (vitamin D3) 10 mcg/mL (400 unit/mL) Drops 50 mcg feeding tube DAILY RF: 0 Daily Fiber (psyllium-aspart) 3 gram Powder In Packet 1 packet G-tube DAILY PRN PRN (Reason: Constipation) Qty: 0 RF: 0 docusate sodium 60 mg/15 mL Syrup 60 mg feeding tube DAILY RF: 0 levalbuterol HCl [Xopenex] 1.25 mg/3 mL Solution For Nebulization 1.25 mg INHALATION Q12H RF: 0 Wellesse Multi Vitamin Plus 400 mcg-200 mg/30 mL Liquid 10 ml PO DAILY RF: 0 Vitamin C 500 mg/15 mL Liquid 10 ml PO DAILY RF: 0 acidophilus-pectin, citrus 25 million cell -100 mg tablet 1 tab G-tube DAILY RF: 0 levalbuterol HCl 1.25 mg/3 mL Solution For Nebulization 1.25 mg INHALATION Q4H PRN (Reason: Shortness Of Breath Or Wheezing) RF: 0 fosfomycin tromethamine 3 gram Packet 1 packet feeding tube DAILY RF: 0 Referrals / Follow Up: Sandra Bermudez DO [Primary Care Provider] - Disposition Disposition (needs filled in before D/C Order can be placed): Home, Self Care
[2021-10-14 08:24] LABS: Anion Gap 7 (5-15); BUN 6 mg/dL (7-18); BUN/Creat Ratio 12.2 RATIO (10-20); Chloride 100 mmol/L (98-107); Creatinine, Serum 0.49 mg/dL (0.55-1.02); EST Glomerular Filtration Rate 156 mL/min (>60); Est Glom Filt Rate - Afr Amer 189 mL/min (>60); Estimated Creatinine Clearance 127.46 ml/min; Glucose 127 mg/dL (74-106); Potassium 4.7 mmol/L (3.5-5.1); Sodium Level 135 mmol/L (136-145)
[2021-10-14] MEDS: Lubricating Jelly 60 GM Tube 30 GM (08:35)
[2021-10-14 10:15] VITALS: BP 122/85; BP 124/94; PULSE 72; RESP 14; TEMP 36.4; O2SAT 100
--- NOTE | 2021-10-14 10:26 | SUR.PHASEI ---
Parent's to bedside in PACU. Suctioned by mother. Tolerated well. Auscultation reveals inspiratory and expiratory wheeze. Will cont to monitor.
[2021-10-14 10:30] VITALS: BP 124/94; BP 132/92; PULSE 83; RESP 16; O2SAT 100
[2021-10-14 10:40] VITALS: BP 124/94; BP 125/77; PULSE 84; RESP 14; TEMP 36.6; O2SAT 100
[2021-10-14 11:20] VITALS: BP 124/94
== END 2021-10-14 23:59 | disposition home or self-care (01) ==
LOC: SDC 06:18 → AC 06:19
PROVIDERS: PCP Internal Medicine; Referring Provider Urology; Visit Provider Urology
PROC: 0TJ98ZZ Inspection of Ureter, Via Natural or Artificial Opening Endoscopic (ICD-10-PCS; CPT 52352; principal; 2021-10-14 07:50)
DX: N20.0 Calculus of kidney (principal); G82.20 Paraplegia, unspecified; Z99.11 Dependence on respirator [ventilator] status; G80.2 Spastic hemiplegic cerebral palsy; E11.9 Type 2 diabetes mellitus without complications; N39.0 Urinary tract infection, site not specified; F70 Mild intellectual disabilities; M41.40 Neuromuscular scoliosis, site unspecified; E55.9 Vitamin D deficiency, unspecified; Z79.899 Other long term (current) drug therapy; Z74.01 Bed confinement status; Z99.81 Dependence on supplemental oxygen; Z86.14 Personal history of Methicillin resistant Staphylococcus aureus infection
CPT/HCPCS: 52332; 52352; 76000; 80048; 82962; 87426; 88300; J7120; C2625

== ENCOUNTER 2021-11-21 08:10 | Outpatient (CLI) | payer MEDICAID, SELFPAY ==
[2021-11-21 10:14] LABS: Absolute Lymphocyte Count 1.44 X10^3/uL (0.83-4.51); Absolute Neutrophil Count 4.8 X10^3/uL (2.0-7.7); Basophil# 0.02 X10^3/uL; Basophil% 0.3 % (0-1); Eosinophil# 0.12 X10^3/uL; Eosinophils% 1.8 % (0-5); Hematocrit 40.8 % (37-47); Hemoglobin 14.1 g/dL (12.0-15.0); Lymphocyte # 1.44 X10^3/ul (0.83-4.51); Lymphocyte % 21.1 % (19-41); Mean Corp Hgb Conc 34.6 g/dL (32-36); Mean Corpuscular Hgb 32.5 pg (27.0-32.0); Mean Platelet Vol. 10.6 fl (6.2-12.0); Monocyte# 0.46 X10^3/uL; Monocyte% 6.7 % (0-10); NRBC Flagged by Analyzer 0 % (0-5); Neutrophil # 4.75 X10^3/uL (2.7-7.7); Neutrophil % 69.7 % (47-70); Platelet Count 278 K/mm3 (150-450); RBC Distribution Width CV 12.6 % (11.6-14.6); RBC Distribution Width SD 43.6 fl (35.1-43.9); Red Blood Count 4.34 M/mm3 (4.2-5.4); White Blood Count 6.8 K/mm3 (4.4-11.0)
[2021-11-21 10:39] LABS: Ferritin 24 ng/mL (8-252); Iron 104 ug/dL (50-170); Iron Binding Capacity,Total 402 ug/dL (250-450)
[2021-11-21 10:40] LABS: Vitamin B12 1387 pg/mL (211-911)
== END 2021-11-21 23:59 | disposition home or self-care (01) ==
LOC: LAB 08:16
PROVIDERS: PCP Internal Medicine; Visit Provider Internal Medicine
DX: D64.9 Anemia, unspecified (principal)
CPT/HCPCS: 36415; 82607; 82728; 83540; 83550; 85025

== ENCOUNTER 2021-12-04 17:18 | Outpatient (CLI) | payer MEDICAID, SELFPAY ==
[2021-12-04 17:48] LABS: Color, Urine Yellow (Yellow); Glucose, Dipstick Normal (Normal); Ketone-Dipstick Negative (Negative); Leukocyte Esterase-Dipstick 500 /ul (Negative); Nitrite-Dipstick Negative (Negative); Occult Blood-Urine 150 /ul (Negative); Protein-Dipstick 30 mg/dl (Negative); Specific Gravity, Urine 1.015 (1.002-1.030); Urine Bilirubin Dipstick Negative (Negative); Urine Clarity Cloudy (Clear); Urine Urobilinogen Normal (Normal)
== END 2021-12-04 23:59 | disposition home or self-care (01) ==
LOC: LABSPEC 17:18
PROVIDERS: PCP Internal Medicine; Visit Provider Urology
DX: N39.0 Urinary tract infection, site not specified (principal)
CPT/HCPCS: 81002; 87077; 87086; 87088; 87186

== ENCOUNTER 2021-12-11 11:00 | Outpatient (CLI) | payer MEDICAID, SELFPAY ==
[2021-12-11 11:16] LABS: Color, Urine Yellow (Yellow); Glucose, Dipstick Normal (Normal); Ketone-Dipstick Negative (Negative); Leukocyte Esterase-Dipstick 500 /ul (Negative); Nitrite-Dipstick Positive (Negative); Occult Blood-Urine 250 /ul (Negative); Protein-Dipstick 15 mg/dl (Negative); Urine Bilirubin Dipstick Negative (Negative); Urine Clarity Sl. Cloudy (Clear); Urine Urobilinogen Normal (Normal)
== END 2021-12-11 23:59 | disposition home or self-care (01) ==
PROVIDERS: PCP Internal Medicine; Visit Provider Internal Medicine Infectious Disease
DX: A49.8 Other bacterial infections of unspecified site (principal)
CPT/HCPCS: 81002; 87086; 87088; 87186

== ENCOUNTER 2021-12-12 15:48 | Emergency (ER) | payer MEDICAID, SELFPAY ==
[2021-12-12 15:51] VITALS: BP 144/115; PULSE 118; RESP 16; TEMP 37.4; O2SAT 97; BMI 25.0
[2021-12-12 16:00] VITALS: BP 154/108; PULSE 120; RESP 22; TEMP 37.4; O2SAT 100
--- NOTE | 2021-12-12 16:04 | EKG12_ITS ---
Test Reason : COMPLAINT Blood Pressure : / mmHG Vent. Rate : 115 BPM Atrial Rate : 115 BPM P-R Int : 122 ms QRS Dur : 090 ms QT Int : 332 ms P-R-T Axes : 016 004 062 degrees QTc Int : 459 ms Sinus tachycardia Otherwise normal ECG Confirmed by MINGO LEIJA, KOBY ([id number]), mapping editor LIZZIE GONZALEZ ([id number]) on 12/16/2021 11:24:44 AM Referred By: VIDHYA Confirmed By:KOBY AGUILA MD
--- NOTE | 2021-12-12 16:05 | EDS_ITS ---
HPI History of Present Illness Chief Complaint: Complaint Narrative Narrative: History and physical is limited secondary to trach, baseline mental status. According to her mother who is her caregiver, patient has been hospitalized multiple times for kidney stones and other reasons throughout the last year. She states a week ago they gave a urine sample and they were waiting for urine cultures. She was started on Bactrim for a urinary tract infection. Yesterday, patient's urine was reported to be green in color, so they left another culture at the office and are awaiting those results. Mother states that patient is acting as if her stomach is upset after her tube feedings, although she is on Bactrim. She is also concerned that she may have more kidney stones. [facility] Medical History Allergic rhinitis due to other allergen Amenorrhea Bedbound Bladder disease Bronchiectasis without acute exacerbation Bronchitis Cerebral palsy Chronic respiratory failure Diabetes Dietary restriction History of Clostridium difficile infection History of renal disease Hyperglycemia Irregular menstrual cycle Kidney stones Lactic acid acidosis Mild mental retardation MRSA infection Neuromuscular scoliosis Non-smoker On home oxygen therapy Pancreatitis Paraplegia PICC (peripherally inserted central catheter) in place Pneumonia Recurrent UTI Redness of skin Renal calculi Renal calculus or stone Respiratory acidosis Seizure Seizures Severe sepsis Skin tag of vaginal mucosa 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 Thrush Urinary tract infection due to extended-spectrum beta lactamase (ESBL) producing Escherichia coli Ventilator dependent Visual disturbance Vitamin D deficiency Home Medications baclofen 20 mg GT TID 09/02/13 [History Last Taken 12/12/21] oxcarbazepine 300 mg/5 mL (60 mg/mL) oral suspension 8 ml GT BID ml 08/28/17 [History Last Taken 12/12/21] ferrous sulfate 60 mg FEEDING TUBE DAILY 02/28/21 [History Last Taken 12/12/21] diazepam 5 mg FEEDING TUBE DAILY@1400 05/20/21 [History Last Taken 12/12/21] diazepam 7 mg FEEDING TUBE BID 05/20/21 [History Last Taken 12/12/21] methenamine hippurate [Hiprex] 1 g FEEDING TUBE BID 05/20/21 [History Last Taken 12/09/21] acidophilus-pectin, citrus 1 tab G-TUBE DAILY 06/25/21 [History Last Taken 12/11/21] docusate sodium 60 mg FEEDING TUBE DAILY 07/21/21 [History Last Taken 12/12/21] levalbuterol HCl 1.25 mg INHALATION BID 08/06/21 [History Last Taken 12/12/21] guaifenesin 100 mg/5 mL oral liquid 200 mg GT Q4H PRN PRN #1000 ml 09/25/21 [Rx Last Taken 12/12/21] insulin aspart U-100 100 unit/mL (3 mL) subcutaneous pen 8 unit SUBCUT 4X/DAY #14.4 ml 11/26/21 [Rx Last Taken 12/12/21] ascorbic acid (vitamin C) 500 mg FEEDING TUBE BID 12/12/21 [History Last Taken 12/12/21] baclofen 10 mg FEEDING TUBE TID 12/12/21 [History Last Taken 12/12/21] bismuth subsalicylate [Pepto-Bismol] 524 mg FEEDING TUBE Q30M PRN 12/12/21 [History Last Taken 12/12/21] cetirizine [Children's Zyrtec Allergy] 10 mg FEEDING TUBE DAILY PRN 12/12/21 [History Last Taken Unknown] cholecalciferol (vitamin D3) 50 mcg FEEDING TUBE DAILY 12/12/21 [History Last Taken 12/12/21] diphenhydramine HCl [Benadryl Allergy] 12.5 mg PO DAILY 12/12/21 [History Last Taken Unknown] fluticasone propionate [Flovent HFA] 2 puff INHALATION BID 12/12/21 [History Last Taken 12/12/21] ibuprofen 400 mg PO Q6H PRN 12/12/21 [History Last Taken 12/11/21] miconazole nitrate [Monistat 7] 1 appful VAGINAL DAILY PRN 12/12/21 [History Last Taken 1 Month Ago ~11/11/21] multivit-folic acid-herbal 275 [Wellesse Multi Vitamin Plus] 10 ml PO DAILY 12/12/21 [History Last Taken 12/11/21] nystatin [Nystop] 1 applic TOPICAL DAILY 12/12/21 [History Last Taken 12/12/21] phenazopyridine [Pyridium] 200 mg FEEDING TUBE TID PRN 12/12/21 [History Last Taken 12/11/21] sodium chloride 3 - 6 ml INHALATION Q2H PRN 12/12/21 [History Last Taken 12/12/21] sulfamethoxazole-trimethoprim [Bactrim] 20 ml PO BID 12/12/21 [History Last Taken 12/12/21] Allergy/AdvReac Type Severity Reaction Status Date / Time linezolid Allergy Severe Other - Verified 10/14/21 07:16 seizure & coma vancomycin Allergy Severe Other - Verified 10/14/21 07:16 kidney failure tobramycin Allergy Intermediate Other - Verified 10/14/21 07:16 turned beet red nafcillin Allergy Mild Rash Verified 10/14/21 07:16 benzoin Allergy Unknown Rash Verified 10/14/21 07:16 milk Allergy Unknown Other Verified 10/14/21 07:16 soy Allergy Unknown Other Verified 10/14/21 07:16 polyethylene glycol 3350 AdvReac Unknown Hives Verified 10/14/21 07:16 [From Miralax] Family History Grandmother Cancer maternal Other Adopted Surgical History derotatox ostomies eyes straightened Gastrostomy tube in place H/O spinal fusion Presence of intrathecal baclofen pump rods to back Status post Jorje fundoplication surgery on gland under tongue tendonatomies Tracheostomy status Social History household members: other details: Mother and is vent dependent housing: house Smoking Status: Never smoker second hand exposure: No alcohol intake: never substance use type: does not use ROS ROS ED Review of Systems ROS Unobtainable: due to encephalopathy, due to endotracheal tube, due to mental condition and other EXAM Physical Exam Narrative Exam Narrative: Afebrile. Vital signs noted. HEENT: . Atraumatic. PERRL, EOMI. Neck soft and supple. No point tenderness or step off. Contracture of neck with head turned towards left. Positive trach. Cardiovascular: Tachycardia. No murmurs, rubs, or gallops appreciated. Respiratory: No tachypnea. Coarse breath sounds bilaterally Gastrointestinal: Abdomen soft, nontender, with normoactive bowel sounds. No rebound or guarding. Noted G-tube. Neurological: Awake. Alert. Eyes open. Skin: No rash. Normal color. No pallor. Musculoskeletal: Positive pedal edema. Positive contractures of bilateral upper and lower extremities Const Vital Signs: 12/12/21 15:51 12/12/21 16:00 12/12/21 16:42 Temperature 99.4 F H 99.4 F H Temperature Source Temporal Temporal Pulse Rate 118 H 120 H Respiratory Rate 16 22 H Blood Pressure 144/115 H 154/108 H Blood Pressure Mean 124 123 Pulse Ox 97 100 100 Oxygen Delivery Method Mechanical Ventilator Mechanical Ventilator Mechanical Ventilator Oxygen Flow Rate (L/min) 3 3 3 12/12/21 16:56 12/12/21 17:28 Temperature 98.6 F 98.6 F Temperature Source Temporal Temporal Pulse Rate 106 H Respiratory Rate 22 H Blood Pressure 133/92 H Blood Pressure Mean 105 Pulse Ox 100 Oxygen Delivery Method Mechanical Ventilator Oxygen Flow Rate (L/min) 3 MDM MDM MDM Narrative Medical decision making narrative: Sepsis work-up was pursued. She was bolused normal saline 1 L intravenously. EKG demonstrates sinus tachycardia at [address] changes. Given her mother's concern for kidney stones for whic h she sees Dr. Anaya, I will obtain a CT of the abdomen and pelvis without contrast. Patient has a normal white count of 8.6, hemoglobin normal at 12.6. Platelet count also normal at 285. INR normal at 1.0. Her sodium is slightly low 132, but this appears to be her baseline, along with chloride of 97. She was bolused normal saline, and her heart rate is now in the 80s. LFTs are grossly unremarkable except for a low AST of 13. Urinalysis is negative for nitrites but WBCs are only 0-5. Urine culture was sent again. She does have 1+ bacteria. Her lactic acid is elevated at 3.4. However, she does not meet any other sepsis criteria. Her CT of the abdomen and pelvis shows nonobstructing kidney stones in each kidney but no ureteral stones. Otherwise, her CT is unremarkable. I discussed her slightly elevated lactic acid with her mother. As she does not meet any other sepsis criteria, her mother would like to take her home because she has home health care coming on Wednesday, and she is more comfortable in treating the patient at home with the continued Bactrim, to follow-up with Dr. Ceron. I do feel that this is reasonable and the decision was made through shared decision making, as the patient has multiple allergies, and she is on a respirator, and has all the equipment at home. Mother is comfortable with the plan. She will be discharged and will give her water boluses also through her feeding tube. Return instructions were reviewed. Disposition is discharged home in stable condition. Lab Data Attestation: I reviewed the patient's lab results. Labs: Laboratory Results - last 24 hr 12/12/21 12/12/21 12/12/21 16:40 16:40 16:40 WBC 8.6 RBC 4.08 L Hgb 12.6 Hct 36.1 L MCV 88.5 MCH 30.9 MCHC 34.9 RDW Std Deviation 37.5 RDW Coeff of Anne 11.8 Plt Count 285 MPV 10.1 Immature Gran % (Auto) 0.500 Neut % (Auto) 74.9 H Lymph % (Auto) 12.4 L [place] % (Auto) 9.7 Eos % (Auto) 2.0 Baso % (Auto) 0.5 Absolute Neuts (auto) 6.5 Absolute Lymphs (auto) 1.07 Nucleated RBC % 0 PT 12.2 INR 1.0 APTT 26.5 Sodium 132 L Potassium 3.8 Chloride 97 L Carbon Dioxide 29.0 Anion Gap 6 BUN 6 L Creatinine 0.59 Estim Creat Clear Calc 102.73 Est GFR (MDRD) Af Amer 153 Est GFR (MDRD) Non-Af 127 BUN/Creatinine Ratio 10.2 Glucose 121 H Lactic Acid Calcium 9.5 Total Bilirubin 0.10 L AST 13 L ALT 23 Alkaline Phosphatase 88 Total Protein 8.2 Albumin 4.0 Globulin 4.2 Albumin/Globulin Ratio 1.0 Urine Color Urine Clarity Urine pH Ur Specific [place] Urine Protein Urine Glucose (UA) Urine Ketones Urine Occult Blood Urine Nitrite Urine Bilirubin Urine Urobilinogen Ur Leukocyte Esterase Urine RBC Urine WBC Ur Squamous Epith Cells Urine Bacteria Urine Mucus 12/12/21 12/12/21 16:40 17:20 WBC RBC Hgb Hct MCV MCH MCHC RDW Std Deviation RDW Coeff of Anne Plt Count MPV Immature Gran % (Auto) Neut % (Auto) Lymph % (Auto) [place] % (Auto) Eos % (Auto) Baso % (Auto) Absolute Neuts (auto) Absolute Lymphs (auto) Nucleated RBC % PT INR APTT Sodium Potassium Chloride Carbon Dioxide Anion Gap BUN Creatinine Estim Creat Clear Calc Est GFR (MDRD) Af Amer Est GFR (MDRD) Non-Af BUN/Creatinine Ratio Glucose Lactic Acid 3.4 H* Calcium Total Bilirubin AST ALT Alkaline Phosphatase Total Protein Albumin Globulin Albumin/Globulin Ratio Urine Color Yellow Urine Clarity Clear Urine pH 8.0 Ur Specific [place] 1.010 Urine Protein Negative Urine Glucose (UA) Normal Urine Ketones Negative Urine Occult Blood Negative Urine Nitrite Negative Urine Bilirubin Negative Urine Urobilinogen Normal Ur Leukocyte Esterase 500 H Urine RBC 0 SEEN Urine WBC 0-5 SEEN Ur Squamous Epith Cells 0-5 SEEN Urine Bacteria 1+ Urine Mucus 0 SEEN Radiography Diagnostic Testing: Clinical Impression(s) from Imaging Studies Abdomen/Pelvis CT 12/12/21 17:35 Chest X-Ray 12/12/21 17:42 IMPRESSION: There are no acute findings. Electronically Signed: Sameer Bradshaw MD at 17:57 EDT Reading Location ID and State: [facility] / [place] , Service support , Discharge Plan Triage Chief Complaint: Complaint ED Provider: Carlos Vickers Dx/Rx/DC Orders Clinical Impression: Lactic acidosis, UTI (urinary tract infection), Abdominal discomfort Instructions: ED Abdominal Pain Unkn Cause Fem, ED CYSTITIS Female Adult Prescriptions: No Action oxcarbazepine [Trileptal] 300 mg/5 mL (60 mg/mL) suspension 8 ml GT BID RF: 0 guaifenesin 100 mg/5 mL liquid 200 mg GT Q4H PRN PRN (Reason: thick secretions) Qty: 1000 RF: 3 baclofen 20 MG tablet 20 mg GT TID RF: 0 ferrous sulfate 15 mg iron (75 mg)/mL Syringe 60 mg feeding tube DAILY RF: 0 diazepam 5 mg/5 mL (1 mg/mL) Solution 7 mg feeding tube BID RF: 0 diazepam 5 mg/5 mL (1 mg/mL) Solution 5 mg feeding tube DAILY@1400 RF: 0 methenamine hippurate [Hiprex] 1 gram Tablet 1 g feeding tube BID RF: 0 docusate sodium 60 mg/15 mL Syrup 60 mg feeding tube DAILY RF: 0 acidophilus-pectin, citrus 25 million cell -100 mg tablet 1 tab G-tube DAILY RF: 0 levalbuterol HCl 1.25 mg/3 mL Solution For Nebulization 1.25 mg INHALATION BID RF: 0 diphenhydramine HCl [Benadryl Allergy] 12.5 mg/5 mL Liquid 12.5 mg PO DAILY RF: 0 miconazole nitrate [Monistat 7] 2 % Cream 1 appful VAGINAL DAILY PRN (Reason: YEAST) RF: 0 Flovent HFA 44 mcg/actuation Hfa Aerosol Inhaler 2 puff INHALATION BID RF: 0 phenazopyridine [Pyridium] 200 mg Tablet 200 mg feeding tube TID PRN (Reason: Bladder Spasms) RF: 0 baclofen 10 mg Tablet 10 mg feeding tube TID RF: 0 bismuth subsalicylate [Pepto-Bismol] 262 mg/15 mL Suspension 524 mg feeding tube Q30M PRN (Reason: UPSET STOMACH) RF: 0 sulfamethoxazole-trimethoprim [Bactrim] 200-40 mg/5 mL Suspension 20 ml PO BID RF: 0 nystatin [Nystop] 100,000 unit/gram Powder 1 applic TOPICAL DAILY RF: 0 ibuprofen 100 mg/5 mL Suspension 400 mg PO Q6H PRN (Reason: Pain) RF: 0 sodium chloride 0.9 % Solution For Nebulization 3 - 6 ml INHALATION Q2H PRN (Reason: Congestion) RF: 0 ascorbic acid (vitamin C) 500 mg/5 mL Syrup 500 mg feeding tube BID RF: 0 cetirizine [Children's Zyrtec Allergy] 1 mg/mL Solution 10 mg feeding tube DAILY PRN (Reason: ALLERGIES) RF: 0 cholecalciferol (vitamin D3) 50 mcg (2,000 unit) Capsule 50 mcg feeding tube DAILY RF: 0 Wellesse Multi Vitamin Plus 400 mcg-200 mg/30 mL Liquid 10 ml PO DAILY RF: 0 insulin aspart U-100 100 unit/mL (3 mL) insulin pen 8 unit subcut 4X/DAY Qty: 14.4 RF: 0 Primary Care Provider: Sandra Bermudez Referrals: Sandra Bermudez DO [Primary Care Provider] - 3-5 Days if not improving Disposition Disposition: Home, Self Care
[2021-12-12 16:42] VITALS: O2SAT 100
[2021-12-12] MEDS: 0.9% Normal Saline 1,000 ML 999 ML IV (16:55)
[2021-12-12 16:56] VITALS: TEMP 37
[2021-12-12 17:01] LABS: Absolute Lymphocyte Count 1.07 X10^3/uL (0.83-4.51); Absolute Neutrophil Count 6.5 X10^3/uL (2.0-7.7); Basophil# 0.04 X10^3/uL; Basophil% 0.5 % (0-1); Eosinophil# 0.17 X10^3/uL; Hematocrit 36.1 % (37-47); Hemoglobin 12.6 g/dL (12.0-15.0); Lymphocyte # 1.07 X10^3/ul (0.83-4.51); Lymphocyte % 12.4 % (19-41); Mean Corp Hgb Conc 34.9 g/dL (32-36); Mean Corpuscular Hgb 30.9 pg (27.0-32.0); Mean Corpuscular Volume 88.5 fL (81-99); Mean Platelet Vol. 10.1 fl (6.2-12.0); Monocyte# 0.84 X10^3/uL; Monocyte% 9.7 % (0-10); NRBC Flagged by Analyzer 0 % (0-5); Neutrophil # 6.46 X10^3/uL (2.7-7.7); Neutrophil % 74.9 % (47-70); Platelet Count 285 K/mm3 (150-450); RBC Distribution Width CV 11.8 % (11.6-14.6); RBC Distribution Width SD 37.5 fl (35.1-43.9); Red Blood Count 4.08 M/mm3 (4.2-5.4); White Blood Count 8.6 K/mm3 (4.4-11.0)
[2021-12-12 17:13] LABS: Prothrombin Time (Protime)PT. 12.2 SECONDS (11.7-14.9)
[2021-12-12 17:14] LABS: Partial Thromboplast Time 26.5 Seconds (24.1-36.2)
[2021-12-12 17:22] LABS: AST(SGOT) 13 U/L (15-37); Alanine Aminotransfer ALT/SGPT 23 U/L (13-56); Alkaline Phosphatase 88 U/L (45-117); Anion Gap 6 (5-15); BUN 6 mg/dL (7-18); BUN/Creat Ratio 10.2 RATIO (10-20); Calcium,Total 9.5 mg/dL (8.5-10.1); Chloride 97 mmol/L (98-107); Creatinine, Serum 0.59 mg/dL (0.55-1.02); EST Glomerular Filtration Rate 127 mL/min (>60); Est Glom Filt Rate - Afr Amer 153 mL/min (>60); Estimated Creatinine Clearance 102.73 ml/min; Globulin 4.2 g/dL (2.2-4.2); Glucose 121 mg/dL (74-106); Potassium 3.8 mmol/L (3.5-5.1); Protein, Total 8.2 g/dL (6.4-8.2); Sodium Level 132 mmol/L (136-145)
[2021-12-12 17:28] VITALS: BP 133/92; PULSE 106; RESP 22; TEMP 37; O2SAT 100
[2021-12-12 17:35] LABS: Mucous, Urine 0 SEEN /hpf (<or=2+); Red Blood Cells-Urine 0 SEEN /hpf (0-5)
--- NOTE | 2021-12-12 17:35 | CT_ITS ---
STUDY: CT Abdomen And Pelvis W/O Contrast Injection 12/12/2021 5:59 PM REASON FOR EXAM: Female, 31 years old. ABDOMINAL PAIN Kidneystones PER MOTHER, PT BEING TREATED FOR UTI WITH BACTRIM X 3 DAYS. C/O ABD PAIN AND RESISTING TUBE FEEDS X3 DAYS. ABD RIGID. ALSO HAVING INCREASED SECRETIONS FROM TRACH, NOSE, AND MOUTH TECHNIQUE: Transaxial images were obtained without oral contrast, and without intravenous contrast. Individualized dose optimization techniques were used for this CT. COMPARISON: 09.13.21 FINDINGS: The visualized lung bases are unremarkable. The visualized portions of the heart are within normal limits. Normal liver. Normal gallbladder and extrahepatic biliary system. Normal spleen. Normal pancreas. Normal bilateral adrenal glands. Non obstructive 2 to 4 mm right renal parenchymal stones. Non obstructive 2 mm left renal parenchymal stones. There is a PEG tube in place. Normal small intestine. Stool throughout the colon. The appendix is visualized and appears normal. There are no acute findings of the abdominal aorta. Normal inferior vena cava. Subcentimeter mesenteric lymph nodes. Normal urinary bladder. 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 This is a stable finding. Normal abdominal wall. There is a thoracolumbar spinal fixation hardware. There is dextroscoliosis of the lumbar spine. There is levoscoliosis of the thoracic spine. IMPRESSION: (NOT LISTED IN ORDER OF SIGNIFICANCE) There are no acute findings. Non obstructive 2 to 4 mm right renal parenchymal stones. Non obstructive 2 mm left renal parenchymal stones. Other findings as above. Electronically Signed: Sameer Bradshaw MD at 18:03 EDT , CT/Abdomen/Pelvis without Cont
--- NOTE | 2021-12-12 17:42 | RAD_ITS ---
STUDY: X-RAY CHEST REASON FOR EXAM: Female, 31 years old. CHEST PAIN fever TECHNIQUE: XR Chest 1 View COMPARISON: 09.13.21 FINDINGS: There is no demonstrated pleural abnormality. Thoracolumbar spinal fixation hardware. Normal size heart. Normal mediastinum and glenn. Normal visualized pulmonary arteries. Normal visualized aortic arch and descending thoracic aorta. There is a dextroscoliosis of the thoracic spine. Normal visualized ribs, clavicles, and shoulders. There is no demonstrated abnormality of the visualized soft tissue structures of the upper abdomen. RAD/Chest 1 View (Portable) IMPRESSION: There are no acute findings. Electronically Signed: Sameer Bradshaw MD at 17:57 EDT ,
[2021-12-12 18:01] LABS: Lactic Acid 3.4 mmol/L (0.4-1.9)
[2021-12-12 18:14] LABS: Color, Urine Yellow (Yellow); Glucose, Dipstick Normal (Normal); Ketone-Dipstick Negative (Negative); Leukocyte Esterase-Dipstick 500 /ul (Negative); Nitrite-Dipstick Negative (Negative); Occult Blood-Urine Negative /ul (Negative); Protein-Dipstick Negative (Negative); Urine Bilirubin Dipstick Negative (Negative); Urine Clarity Clear (Clear); Urine Urobilinogen Normal (Normal)
[2021-12-12 18:20] LABS: Bacteria 1+ /hpf (None Seen); Squamous Epithelial Cells - UA 0-5 SEEN /hpf (5-10); White Blood Cells 0-5 SEEN /hpf (0-5)
--- NOTE | 2021-12-12 19:01 | ED.RN ---
family requested [facility] to come and pickling operator the patient due to them taking care of her for years.
[2021-12-12 19:45] VITALS: BP 118/71; PULSE 96; O2SAT 100
[2021-12-12 20:53] LABS: Reflex Lactate? Y
== END 2021-12-12 19:47 | disposition home or self-care (01) ==
PROVIDERS: Emergency Provider Emergency Medicine; PCP Internal Medicine; Visit Provider Emergency Medicine
DX: E87.2 Acidosis (principal); G82.20 Paraplegia, unspecified; Z93.0 Tracheostomy status; G80.9 Cerebral palsy, unspecified; J96.10 Chronic respiratory failure, unspecified whether with hypoxia or hypercapnia; R56.9 Unspecified convulsions; E11.9 Type 2 diabetes mellitus without complications; Z79.4 Long term (current) use of insulin; N39.0 Urinary tract infection, site not specified; R10.9 Unspecified abdominal pain; Z87.442 Personal history of urinary calculi; Z79.899 Other long term (current) drug therapy; Z74.01 Bed confinement status; F70 Mild intellectual disabilities; Z99.81 Dependence on supplemental oxygen; Z98.1 Arthrodesis status
CPT/HCPCS: 71045; 74176; 80053; 81001; 83605; 85025; 85610; 85730; 87040; 87086; 87088; 87186; 93005; 96360; 96361; 99285; J7030; A4216

== ENCOUNTER 2021-12-31 12:59 | Outpatient (CLI) | payer MEDICAID, SELFPAY ==
[2021-12-31 13:40] LABS: Color, Urine Yellow (Yellow); Glucose, Dipstick Normal (Normal); Ketone-Dipstick Negative (Negative); Leukocyte Esterase-Dipstick 500 /ul (Negative); Nitrite-Dipstick Negative (Negative); Occult Blood-Urine 250 /ul (Negative); Protein-Dipstick 15 mg/dl (Negative); Urine Bilirubin Dipstick Negative (Negative); Urine Clarity Sl. Cloudy (Clear); Urine Urobilinogen Normal (Normal)
== END 2021-12-31 23:59 | disposition home or self-care (01) ==
LOC: LABSPEC 13:01
PROVIDERS: PCP Internal Medicine; Visit Provider Internal Medicine Infectious Disease
DX: A49.8 Other bacterial infections of unspecified site (principal)
CPT/HCPCS: 81002; 87086; 87088; 87186

== ENCOUNTER → 2022-01-05 | Outpatient (CLI) | payer MEDICAID, SELFPAY ==
[2022-01-05 12:55] LABS: PTHIN 11.6 pg/mL (18.4-80.1)
== END | disposition home or self-care (01) ==
LOC: BIMLAB 10:48
PROVIDERS: PCP Internal Medicine; Referring Provider Internal Medicine Endocrinology, Diabetes & Metabolism; Visit Provider Internal Medicine Endocrinology, Diabetes & Metabolism
DX: N20.1 Calculus of ureter (principal)
CPT/HCPCS: 36415; 83970

== ENCOUNTER 2022-01-07 14:00 | Outpatient (RCR) | payer MEDICAID, SELFPAY ==
--- NOTE | 2022-01-08 08:35 | NT.THERAPY_ITS ---
Medical Nutrition Therapy - History Nutrition Services has been consulted to:: Manage enteral nutrition Current diet/nutrition support order:: NPO; Neocate Jr. via PEG tube is as follows: For formula: 3/4 cup + 3 tablespoons + 2 1/2 teaspoons powdered Neocate Rell mixed in 300mL water. Pt gets 160mL of formula mixture 4x/day, given over 1 hour at home via pump. Pt gets 100mL H2O flush after each feeding. Pt gets 240mL H2O flush 4x/day in between feedings. Neocate provides an estimated 953 calories and 1360mL H2O per day. - Anthropometric Measurements Height:: 4 ft 6 in Weight:: 47.1 kg Body Mass Index (BMI):: 25.0 - Assessment Food and Nutrient Intake: Consulted by laborer driver for recommendations for enteral nutrition support- pt changed from Neocate Jr. to [employer] 1.0 d/t product availability. NPO w/ all nutrition provided via G tube. Chronic tracheostomy. Pt w/ multiple food allergies- has been on Neocate Jr. for years d/t allergy to soy and milk. Per EMR, wt has been stable ~45-48 kg. Family cannot weigh pt at home. Last wt from ED visit was 47.1kg on 12/12/21. - Nutrition Diagnosis: Clinical Problem Swallowing Difficulty Clinical Problem - Etiology: r/t chronic tracheostomy Clinical Problem - Signs/Symptoms: as evidenced by gtube status, enteral nut rition support Status: Active Problem - Protein Calorie Malnutrition Evidence of Malnutrition Exists: No - Nutrition Intervention Nutrition Prescription: 900-1100 calories/day (30 calories/kg IBW). 41-51 g protein/day (1.2-1.5g/kg IBW). 1190-1648mL fluid/day (35mL/kg IBW -- current wt) - Food / Nutrient Delivery Interventions Summary of nutrition intervention:: Order/adjust enteral nutrition Nutrition support ordered as / adjusted to:: Pt's Neocate Jr. supply is set to run out in next 10-14 days. [employer] Peptide 1.0 sent per order from Dr. Bermudez's office. To initiate transition, recommended: 162.5mL [employer] 1.0 for first feeding of day, followed by 3 Neocate Jr. feedings each day for 2 days. As tolerated, increase to two 162.5mL [employer] 1.0 feedings, followed by 2 Neocate Jr. feedings each day for 2 days. Next, three 162.5mL [employer] 1.0 feedings following by 1 Neocate Jr. feeding for 2 days as tolerated. Goal: four 162.5mL [employer] feedings/day. For flushes: will continue same as provided currently: 100mL H2O flush w/ each bolus and 240mL flush 4x/day in between feedings to provide 1360mL free fluid/day. Coordination of Nutrition Care: Discussed w/ Mom that [employer] 1.5 product would better suit pt's nutritional needs and limit volume needed. RDN contacted Dr. Bermudez's office and requested [employer] 1.5 product be ordered for pt. To meet same calories as Neocate Jr., pt would need 2 cartons/day [employer] 1.5 to provide 1000 calories, 48 g protein, and 90 g CHO (or 3 cartons/day [employer] 1.0 per day to provide 975 calories, 48 g protein, 111 g CHO until new product arrives). - MNT Monitoring Active Nutrition Patient: Yes
[2022-01-08 08:43] VITALS: BMI 25.0
--- NOTE | 2022-01-13 16:08 | NT.THERAPY_ITS ---
Medical Nutrition Therapy - History Nutrition Services has been consulted to:: Manage enteral nutrition Current diet/nutrition support order:: Via PEG- [employer] 1.0 162.5mL 4x/day - Assessment Food and Nutrient Intake: Call from Mom, Rina- pt is tolerating transition to [employer] w/ the exception of the 1800 feeding. She has been tolerating 162.5mL of [employer] 1.0 at 0800, 1100, and 1300. Rina asking to adjust bolus size so pt gets only 3 feedings/day. Rina is anticipating [employer] 1.5 product to arrive tonight. - Nutrition Diagnosis: Clinical Problem Swallowing Difficulty Clinical Problem - Etiology: r/t chronic tracheostomy Clinical Problem - Signs/Symptoms: as evidenced by gtube status, enteral nutrition support Status: Active Problem - Protein Calorie Malnutrition Evidence of Malnutrition Exists: No - Nutrition Intervention Nutrition Prescription: 900-1100 calories/day (30 calories/kg IBW). 41-51 g protein/day (1.2-1.5g/kg IBW). 1190-1648mL fluid/day (35mL/kg IBW -- current wt) - Food / Nutrient Delivery Interventions Summary of nutrition intervention:: Order/adjust enteral nutrition Nutrition support ordered as / adjusted to:: Goal: 216mL bolus [employer] 1.5 3x/day (which equals 2 cartons/day) at 0800, 1300, and 1700 to provide 1000 calories, 48 g protein, and 90 g CHO per day. For flushes: will continue same as provided previously- 100mL H2O flush w/ each bolus and 240mL flush 4x/day in between feedings to provide 1360mL free fluid/day. Coordination of Nutrition Care: Will send updated administration directions to [facility] at Rina's request - MNT Monitoring Active Nutrition Patient: Yes
--- NOTE | 2022-01-20 16:42 | NS ---
Call from Home Health NurseCatherine to clarify enteral nutrition orders/schedule as orders sent by RDN and what Rina (mom) was actually administering were different. RDN called Rina to clarify schedule is as follows: 0800 216mL bolus [employer] 1.5 0900 150mL H2O flush 1100 240mL H2O flush 1300 216mL bolus [employer] 1.5 1400 150mL H2O flush 1500 240mL H2O flush 1700 216mL bolus [employer] 1.5 1800 150mL H2O flush 1900 150mL H2O flush 2000 280mL H20 flush Enteral nutrition provides 1000 calories, 48 g protein/da. Flushes provide 1360mL free fluid/day. Sent to [facility] and copied to Dr. Bermudez, Dr. Messina, and Rina. Charlene Perez MS, RDN, LD
== END 2022-01-10 23:59 ==
LOC: NS 14:00
PROVIDERS: PCP Internal Medicine; Visit Provider Internal Medicine Endocrinology, Diabetes & Metabolism
DX: Z71.3 Dietary counseling and surveillance (principal); Z93.1 Gastrostomy status; E11.9 Type 2 diabetes mellitus without complications; N20.1 Calculus of ureter; Z78.9 Other specified health status
CPT/HCPCS: 97802

== ENCOUNTER → 2022-01-08 | Outpatient (CLI) | payer MEDICAID, SELFPAY | END | disposition home or self-care (01) | PROVIDERS: PCP Internal Medicine; Referring Provider Internal Medicine Endocrinology, Diabetes & Metabolism; Visit Provider Internal Medicine Endocrinology, Diabetes & Metabolism | DX: N20.1 Calculus of ureter (principal) | CPT/HCPCS: 81050 ==

== ENCOUNTER → 2022-01-19 | Outpatient (CLI) | payer MEDICAID, SELFPAY ==
[2022-01-19 11:14] LABS: Iron 55 ug/dL (50-170); Vitamin B12 > 2000 pg/mL (211-911)
== END | disposition home or self-care (01) ==
LOC: LAB 09:31
PROVIDERS: PCP Internal Medicine; Referring Provider Internal Medicine; Visit Provider Internal Medicine
DX: E53.8 Deficiency of other specified B group vitamins (principal); D64.9 Anemia, unspecified
CPT/HCPCS: 36415; 82607; 83540

== ENCOUNTER 2022-02-24 12:05 | Observation (INO) | payer MEDICAID, SELFPAY ==
[2022-02-24] VITALS (12 sets, daily range): BP systolic 95–136; BP diastolic 61–94; PULSE 66–105; RESP 16–25; TEMP 36.7–37.7; O2SAT 100; BMI 35.9; BMI 25.4
--- NOTE | 2022-02-24 12:12 | CPS ---
Home ventilator on patient with 3lpm bleed in, Peep: 7, VT: 240, RR 14, Pressure support : 8, Sensitivity: 2. Patient requires a 10Fr suction cather down to 8 cm hayden due to artery location. PIP: 15, Ve: 3.2, MAP, 10.
--- NOTE | 2022-02-24 12:50 | EKG12_ITS ---
Test Reason : WOUND Blood Pressure : / mmHG Vent. Rate : 110 BPM Atrial Rate : 110 BPM P-R Int : 136 ms QRS Dur : 080 ms QT Int : 332 ms P-R-T Axes : 033 020 078 degrees QTc Int : 449 ms Sinus tachycardia Otherwise normal ECG Confirmed by KAITLIN LEIJA, FROYLAN ([id number]), editor news KRYSTYNA ANDERSON ([id number]) on 02/25/2022 10:11:51 AM Referred By: VIDHYA Confirmed By:FROYLAN MADRIGAL MD
[2022-02-24 13:44] LABS: Absolute Lymphocyte Count 1.19 X10^3/uL (0.83-4.51); Absolute Neutrophil Count 6.7 X10^3/uL (2.0-7.7); Basophil# 0.05 X10^3/uL; Basophil% 0.6 % (0-1); Eosinophil# 0.26 X10^3/uL; Eosinophils% 2.9 % (0-5); Hematocrit 35.3 % (37-47); Lymphocyte # 1.19 X10^3/ul (0.83-4.51); Lymphocyte % 13.4 % (19-41); Mean Corpuscular Hgb 32.4 pg (27.0-32.0); Mean Corpuscular Volume 95.4 fL (81-99); Monocyte% 6.7 % (0-10); NRBC Flagged by Analyzer 0 % (0-5); Neutrophil # 6.74 X10^3/uL (2.7-7.7); Neutrophil % 75.7 % (47-70); Platelet Count 251 K/mm3 (150-450); RBC Distribution Width CV 13.2 % (11.6-14.6); RBC Distribution Width SD 46.3 fl (35.1-43.9); White Blood Count 8.9 K/mm3 (4.4-11.0)
--- NOTE | 2022-02-24 13:50 | RAD_ITS ---
STUDY: X-RAY CHEST REASON FOR EXAM: Female, 31 years old. Chronic Respiratory Failure TECHNIQUE: Single AP portable view of the chest. COMPARISON: Comparison is made with prior study dated 12/12/2021. FINDINGS: EKG electrodes are seen. Stable elevation of the left hemidiaphragm. A tracheostomy tube is seen in situ. The lungs are clear and expanded. There is no demonstrated pleural abnormality. Normal size heart. Normal mediastinum and glenn. Normal visualized pulmonary arteries. Normal visualized aortic arch and descending thoracic aorta. There is a marked degree of dextroscoliosis of the thoracic spine. Single metallic angelo is seen throughout the dorsal spine. Normal visualized ribs, clavicles, and shoulders. There is no demonstrated abnormality of the visualized soft tissue structures of the upper abdomen. RAD/Chest 1 View (Portable) IMPRESSION: Stable elevation of the left hemidiaphragm. There has been essentially no change as compared to prior study. Electronically Signed: Francisco Vogt MD at 14:10 EDT ,
--- NOTE | 2022-02-24 13:58 | EDS_ITS ---
HPI History of Present Illness Chief Complaint: Wound Check Narrative Narrative: History and physical is limited secondary to the patient being nonverbal. She has chronic respiratory failure with tracheostomy. According to her caregiver/mother, she is being treated for an abscess in her left gluteal fold. It was draining white liquid that turned brown. She had a slightly elevated temperature of 99.8 ?F but usually runs 97. She texted a picture of it to her primary care physician who put her on Bactrim on . She has had 6 days of it, with continued drainage from the area. There is concern because the patient become septic very quickly. She had infected kidney stones in the past that required IV antibiotics. She does not currently have a PICC line. She presents mainly with the need for admission for IV antibiotics to take care of the infection of her left gluteal fold. [facility] Medical History Allergic rhinitis due to other allergen Amenorrhea Bedbound Bladder disease Bronchiectasis without acute exacerbation Bronchitis Cerebral palsy Chronic respiratory failure Diabetes Dietary restriction History of Clostridium difficile infection History of renal disease Hyperglycemia Irregular menstrual cycle Kidney stones Lactic acid acidosis Mild mental retardation MRSA infection Neuromuscular scoliosis Non-smoker On home oxygen therapy On tube feeding diet Pancreatitis Paraplegia PICC (peripherally inserted central catheter) in place Pneumonia Recurrent UTI Redness of skin Renal calculi Renal calculus or stone Respiratory acidosis Seizure Seizures Severe sepsis Skin tag of vaginal mucosa 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 Thrush Urinary tract infection due to extended-spectrum beta lactamase (ESBL) producing Escherichia coli Ventilator dependent Visual disturbance Vitamin D deficiency Home Medications baclofen 20 mg GT TID 09/02/13 [History Last Taken 12/12/21] oxcarbazepine 300 mg/5 mL (60 mg/mL) oral suspension 8 ml GT BID ml 08/28/17 [History Last Taken 12/12/21] ferrous sulfate 60 mg FEEDING TUBE DAILY 02/28/21 [History Last Taken 12/12/21] diazepam 5 mg FEEDING TUBE DAILY@1400 05/20/21 [History Last Taken 12/12/21] diazepam 7 mg FEEDING TUBE BID 05/20/21 [History Last Taken 12/12/21] methenamine hippurate [Hiprex] 1 g FEEDING TUBE BID 05/20/21 [History Last Taken 12/09/21] acidophilus-pectin, citrus 1 tab G-TUBE DAILY 06/25/21 [History Last Taken 12/11/21] docusate sodium 60 mg FEEDING TUBE DAILY 07/21/21 [History Last Taken 12/12/21] guaifenesin 100 mg/5 mL oral liquid 200 mg GT Q4H PRN PRN #1000 ml 09/25/21 [Rx Last Taken 12/12/21] ascorbic acid (vitamin C) 500 mg FEEDING TUBE BID 12/12/21 [History Last Taken 12/12/21] baclofen 10 mg FEEDING TUBE TID 12/12/21 [History Last Taken 12/12/21] bismuth subsalicylate [Pepto-Bismol] 524 mg FEEDING TUBE Q30M PRN 12/12/21 [History Last Taken 12/12/21] cholecalciferol (vitamin D3) 50 mcg FEEDING TUBE DAILY 12/12/21 [History Last Taken 12/12/21] diphenhydramine HCl [Benadryl Allergy] 12.5 mg PO DAILY 12/12/21 [History Last Taken Unknown] ibuprofen 400 mg PO Q6H PRN 12/12/21 [History Last Taken 12/11/21] miconazole nitrate [Monistat 7] 1 appful VAGINAL DAILY PRN 12/12/21 [History Last Taken 1 Month Ago ~11/11/21] multivit-folic acid-herbal 275 [[place] Multi Vitamin Plus] 10 ml PO DAILY 12/12/21 [History Last Taken 12/11/21] nystatin [Nystop] 1 applic TOPICAL DAILY 12/12/21 [History Last Taken 12/12/21] phenazopyridine [Pyridium] 200 mg FEEDING TUBE TID PRN 12/12/21 [History Last Taken 12/11/21] sodium chloride 3 - 6 ml INHALATION Q2H PRN 12/12/21 [History Last Taken 12/12/21] sulfamethoxazole-trimethoprim [Bactrim] 20 ml PO BID 12/12/21 [History Last Taken 12/12/21] blood sugar diagnostic #400 ea 01/05/22 [Rx Last Taken Unknown] insulin aspart U-100 100 unit/mL (3 mL) subcutaneous pen 8 unit SUBCUT 4X/DAY #45 ml MDD 48 01/05/22 [Rx Last Taken Unknown] lancets 33 gauge #100 ea 01/05/22 [Rx Last Taken Unknown] pen needle, diabetic 32 gauge x 32 #360 ea 01/05/22 [Rx Last Taken Unknown] levalbuterol HCl 1.25 mg/3 mL solution for nebulization 1.25 mg INHALATION BID #90 ml 01/16/22 [Rx Last Taken Unknown] montelukast 10 mg tablet 10 mg PO QPM #30 tab 01/16/22 [Rx Last Taken Unknown] cetirizine 1 mg/mL oral solution 10 mg FEEDING TUBE DAILY PRN #480 ml 01/28/22 [Rx Last Taken Unknown] fluticasone propionate 44 mcg/actuation HFA aerosol inhaler 2 inh INHALATION BID #10.6 g 01/28/22 [Rx Last Taken Unknown] fexofenadine 60 mg PO BID 02/24/22 [History Last Taken Unknown] fluticasone propionate [Flovent] 2 puff INHALATION BID 02/24/22 [History Last Taken Unknown] hydrocortisone 1 applic TOPICAL TID PRN 02/24/22 [History Last Taken Unknown] levalbuterol HCl [Xopenex] 1.25 mg INHALATION Q4H 02/24/22 [History Last Taken Unknown] naphazoline [Naphcon] drp OPHTHALMIC (EYE) 02/24/22 [History Last Taken Unknown] phenazopyridine [Pyridium] 200 mg PO TID 02/24/22 [History Last Taken Unknown] Allergy/AdvReac Type Severity Reaction Status Date / Time linezolid Allergy Severe Other - Verified 02/24/22 12:10 seizure & coma vancomycin Allergy Severe Other - Verified 02/24/22 12:10 kidney failure tobramycin Allergy Intermediate Other - Verified 02/24/22 12:10 turned beet red nafcillin Allergy Mild Rash Verified 02/24/22 12:10 benzoin Allergy Unknown Rash Verified 02/24/22 12:10 milk Allergy Unknown Other Verified 02/24/22 12:10 soy Allergy Unknown Other Verified 02/24/22 12:10 polyethylene glycol 3350 AdvReac Unknown Hives Verified 02/24/22 12:10 [From Miralax] Family History Grandmother Cancer maternal Other Adopted Surgical History derotatox ostomies eyes straightened Gastrostomy tube in place H/O spinal fusion Presence of intrathecal baclofen pump rods to back Status post Jorje fundoplication surgery on gland under tongue tendonatomies Tracheostomy status Social History household members: other details: Mother and is vent dependent housing: house Smoking Status: Never smoker second hand exposure: No alcohol intake: never substance use type: does not use ROS ROS ED ROS Narrative Unable to obtain from patient secondary to patient being nonverbal. Constitutional: Elevated temperature equivalent to fever, no chills. HEENT: No sore throat. No neck pain. No loss of vision. No rhinorrhea. Cardiovascular: No chest pain. No palpitations. No pedal edema. Respiratory: No cough, no shortness of breath. Abdominal: No abdominal pain. No nausea. No vomiting. Genitourinary: No dysuria. No hematuria. Musculoskeletal: No myalgias. No arthralgias. Neurologic: No headaches. No dizziness. No lightheadedness. Skin: No rash. No change in color. Positive reddened area left gluteal fold draining yellow to brown purulent material. Psychiatric: No depression. No anxiety. EXAM Physical Exam Narrative Exam Narrative: Afebrile. Vital signs noted. HEENT: Positive tracheostomy. Positive torticollis, chronic Cardiovascular: Regular rate and rhythm. No murmurs, rubs, or gallops appreciated. Respiratory: No tachypnea. Coarse breath sounds bilaterally. Gastrointestinal: Abdomen soft, nontender, with normoactive bowel sounds. No rebound or guarding. Neurological: Awake. Alert. At baseline. Consistent with chronic paraplegia. Skin: No rash. Normal color. No pallor. Positive draining abscess with induration left gluteal fold. No fluctuance. No significant erythema. Musculoskeletal: At baseline with chronic contractures. Const Vital Signs: 02/24/22 12:06 02/24/22 12:09 02/24/22 12:12 Temperature 99.8 F H 99.8 F H Temperature Source Temporal Temporal Pulse Rate 98 93 Respiratory Rate 17 16 Blood Pressure 129/94 H 129/94 H Blood Pressure Mean 105 105 Pulse Ox 100 100 100 Oxygen Delivery Method Room Air Room Air Mechanical Ventilator Oxygen Flow Rate (L/min) 3 02/24/22 13:07 02/24/22 13:09 02/24/22 13:50 Temperature 99.8 F H 98.6 F 99.4 F H Temperature Source Temporal Temporal Temporal Pulse Rate 105 H 94 Respiratory Rate 20 H 18 Blood Pressure 130/87 H 130/94 H Blood Pressure Mean 101 106 Pulse Ox 100 100 Oxygen Delivery Method Trach Collar Room Air Trach Collar Oxygen Flow Rate (L/min) 02/24/22 14:00 Temperature 99.6 F H Temperature Source Temporal Pulse Rate 94 Respiratory Rate 18 Blood Pressure 130/84 H Blood Pressure Mean 99 Pulse Ox 100 Oxygen Delivery Method Mechanical Ventilator Oxygen Flow Rate (L/min) MDM MDM MDM Narrative Medical decision making narrative: Patient's exam more consistent with gluteal abscess. Sepsis work-up was pursued. She has normal white count of 8.9, hemoglobin normal at 12.0, platelet count normal at 251. Chest x-ray interpreted by myself shows no acute process. I also interpreted her EKG which demonstrates sinus tachycardia at [address] changes. No STEMI. Her temperature has come down to 98.6 by itself. She became minimally tachycardic at 105 bpm. They state that when she has infection she has increased secretions which they state is happening. Patient has multiple allergies to medications. I do feel that she would require at least observation for IV antibiotics as they state there is no significant improvement with outpatient antibiotics. CMP and lactic acid are hemolyzed. These will be repeated. However, I do feel that the patient would benefit from IV antibiotics. She was started on Rocephin which she has tolerated in the past for urinary tract infection. I discussed patient with Dr. Dupree. This is a very small gluteal abscess. I do not feel that we will require plastic surgery intervention currently. It is already draining. Disposition is admit in stable condition for antibiotics intravenously and for failure of her outpatient treatment of 6 days of Bactrim. Patient is in stable condition. Lab Data Attestation: I reviewed the patient's lab results. Labs: Laboratory Results - last 24 hr 02/24/22 02/24/22 02/24/22 13:30 13:30 13:30 WBC 8.9 RBC 3.70 L Hgb 12.0 Hct 35.3 L MCV 95.4 MCH 32.4 H MCHC 34.0 RDW Std Deviation 46.3 H RDW Coeff of Anne 13.2 Plt Count 251 MPV 10.0 Immature Gran % (Auto) 0.700 Neut % (Auto) 75.7 H Lymph % (Auto) 13.4 L [place] % (Auto) 6.7 Eos % (Auto) 2.9 Baso % (Auto) 0.6 Absolute Neuts (auto) 6.7 Absolute Lymphs (auto) 1.19 Nucleated RBC % 0 Sodium Cancelled Potassium Cancelled Chloride Cancelled Carbon Dioxide Cancelled Anion Gap Cancelled BUN Cancelled Creatinine Cancelled Estim Creat Clear Calc Cancelled Est GFR (MDRD) Af Amer Cancelled Est GFR (MDRD) Non-Af Cancelled BUN/Creatinine Ratio Cancelled Glucose Cancelled Lactic Acid Cancelled Calcium Cancelled Total Bilirubin Cancelled AST Cancelled ALT Cancelled Alkaline Phosphatase Cancelled Total Protein Cancelled Albumin Cancelled Globulin Cancelled Albumin/Globulin Ratio Cancelled Radiography Diagnostic Testing: Clinical Impression(s) from Imaging Studies Chest X-Ray 02/24/22 13:50 IMPRESSION: Stable elevation of the left hemidiaphragm. There has been essentially no change as compared to prior study. Electronically Signed: Francisco Vogt MD at 14:10 EDT , Discharge Plan Dx/Rx/DC Orders Clinical Impression: Abscess, gluteal, left, Failure of outpatient treatment Disposition Disposition: Acute Care [facility]
--- NOTE | 2022-02-24 14:09 | NURSING ---
LACTIC ACID HEMOLIZED. PER LAB. THEY WILL REPRINT LABELS
--- NOTE | 2022-02-24 14:45 | NURSING ---
PCU KITTOE GLUTEAL ABSCESS
[2022-02-24 15:12] LABS: Lactic Acid 1.7 mmol/L (0.4-1.9)
--- NOTE | 2022-02-24 15:12 | HP.PCM.HOS_ITS ---
HPI - General General Date of Admission: 02/24/22 Date of Service: 02/24/22 Chief Complaint: Gluteal fold wound HPI Narrative MANDY RIVERA, is a 31 F with multiple comorbidities including cerebral palsy vent dependent, diabetes mellitus type 2 who was brought to the emergency department by the mom on account of patient having developed left gluteal fold wound with purulent discharge. Patient had been prescribed Bactrim by her primary care physician however her mom felt patient was getting worse she was therefore brought to the emergency department as a result. A gluteal fold wound infection diagnosis was made started on antibiotics?Rocephin and admitted to regular nursing floor for further management [facility] Medical History Allergic rhinitis due to other allergen Amenorrhea Bedbound Bladder disease Bronchiectasis without acute exacerbation Bronchitis Cerebral palsy Chronic respiratory failure Diabetes Dietary restriction History of Clostridium difficile infection History of renal disease Hyperglycemia Irregular menstrual cycle Kidney stones Lactic acid acidosis Mild mental retardation MRSA infection Neuromuscular scoliosis Non-smoker On home oxygen therapy On tube feeding diet Pancreatitis Paraplegia PICC (peripherally inserted central catheter) in place Pneumonia Recurrent UTI Redness of skin Renal calculi Renal calculus or stone Respiratory acidosis Seizure Seizures Severe sepsis Skin tag of vaginal mucosa 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 Thrush Urinary tract infection due to extended-spectrum beta lactamase (ESBL) producing Escherichia coli Ventilator dependent Visual disturbance Vitamin D deficiency Home Medications baclofen 20 mg GT TID 09/02/13 [History Last Taken 02/24/22] oxcarbazepine 300 mg/5 mL (60 mg/mL) oral suspension 8 ml GT BID ml 08/28/17 [History Last Taken 02/24/22] ferrous sulfate 60 mg FEEDING TUBE DAILY 02/28/21 [History Last Taken 02/24/22] diazepam 5 mg FEEDING TUBE DAILY@1400 05/20/21 [History Last Taken 02/24/22] diazepam 7 mg FEEDING TUBE BID 05/20/21 [History Last Taken 02/24/22] methenamine hippurate [Hiprex] 1 g FEEDING TUBE BID 05/20/21 [History Last Taken 02/24/22] acidophilus-pectin, citrus 1 tab G-TUBE DAILY 06/25/21 [History Last Taken 02/24/22] docusate sodium 60 mg FEEDING TUBE DAILY 07/21/21 [History Last Taken 2 Weeks Ago ~02/10/22] guaifenesin 100 mg/5 mL oral liquid 200 mg GT Q4H PRN PRN #1000 ml 09/25/21 [Rx Last Taken 02/23/22] ascorbic acid (vitamin C) 500 mg FEEDING TUBE BID 12/12/21 [History Last Taken 02/24/22] baclofen 10 mg FEEDING TUBE TID 12/12/21 [History Last Taken 02/24/22] bismuth subsalicylate [Pepto-Bismol] 524 mg FEEDING TUBE Q30M PRN 12/12/21 [History Last Taken 12/12/21] cholecalciferol (vitamin D3) 50 mcg FEEDING TUBE DAILY 12/12/21 [History Last Ta luz maria 02/24/22] diphenhydramine HCl [Benadryl Allergy] 12.5 mg PO DAILY 12/12/21 [History Last Taken Unknown] ibuprofen 400 mg PO Q6H PRN 12/12/21 [History Last Taken 02/24/22] miconazole nitrate [Monistat 7] 1 appful VAGINAL DAILY PRN 12/12/21 [History Last Taken 1 Week Ago ~02/17/22] multivit-folic acid-herbal 275 [Well[place] Multi Vitamin Plus] 10 ml PO DAILY 12/12/21 [History Last Taken 02/23/22] nystatin [Nystop] 1 applic TOPICAL DAILY 12/12/21 [History Last Taken 02/24/22] phenazopyridine [Pyridium] 200 mg FEEDING TUBE TID PRN 12/12/21 [History Last Taken 12/11/21] sodium chloride 3 - 6 ml INHALATION Q2H PRN 12/12/21 [History Last Taken 02/23/22] sulfamethoxazole-trimethoprim [Bactrim] 20 ml PO BID 12/12/21 [History Last Taken 02/24/22] blood sugar diagnostic #400 ea 01/05/22 [Rx Last Taken Unknown] lancets 33 gauge #100 ea 01/05/22 [Rx Last Taken Unknown] pen needle, diabetic 32 gauge x #360 ea 01/05/22 [Rx Last Taken Unknown] levalbuterol HCl 1.25 mg/3 mL solution for nebulization 1.25 mg INHALATION BID #90 ml 01/16/22 [Rx Last Taken 02/23/22] cetirizine 1 mg/mL oral solution 10 mg FEEDING TUBE DAILY PRN #480 ml 01/28/22 [Rx Last Taken 02/24/22] fluticasone propionate 44 mcg/actuation HFA aerosol inhaler 2 inh INHALATION BID #10.6 g 01/28/22 [Rx Last Taken 02/23/22] fluticasone propionate [Flovent] 2 puff INHALATION BID 02/24/22 [History Last Taken 02/24/22] hydrocortisone 1 applic TOPICAL TID PRN 02/24/22 [History Last Taken Unknown] insulin aspart U-100 7 unit SUBCUT 4X/DAY MDD 48 02/24/22 [History Last Taken 02/24/22] levalbuterol HCl [Xopenex] 1.25 mg INHALATION Q4H 02/24/22 [History Last Taken 02/23/22] montelukast 10 mg PO QPM 02/24/22 [History Last Taken Unknown] naphazoline [Naphcon] 2 drp OPHTHALMIC (EYE) DAILY PRN 02/24/22 [History Last Taken 02/23/22] Allergy/AdvReac Type Severity Reaction Status Date / Time linezolid Allergy Severe Other - Verified 02/24/22 12:10 seizure & coma vancomycin Allergy Severe Other - Verified 02/24/22 12:10 kidney failure tobramycin Allergy Intermediate Other - Verified 02/24/22 12:10 turned beet red nafcillin Allergy Mild Rash Verified 02/24/22 12:10 benzoin Allergy Unknown Rash Verified 02/24/22 12:10 milk Allergy Unknown Other Verified 02/24/22 12:10 soy Allergy Unknown Other Verified 02/24/22 12:10 polyethylene glycol 3350 AdvReac Unknown Hives Verified 02/24/22 12:10 [From Miralax] Family History Grandmother Cancer maternal Other Adopted Surgical History derotatox ostomies eyes straightened Gastrostomy tube in place H/O spinal fusion Presence of intrathecal baclofen pump rods to back Status post Jorje fundoplication surgery on gland under tongue tendonatomies Tracheostomy status Social History household members: other details: Mother and is vent dependent housing: house Smoking Status: Never smoker second hand exposure: No alcohol intake: never substance use type: does not use ROS Review of Systems ROS Unobtainable: due to mental condition Vital Signs Vital Signs Vital Signs: 02/24/22 12:06 02/24/22 12:09 02/24/22 12:12 Temperature 99.8 F H 99.8 F H Temperature Source Temporal Temporal Pulse Rate 98 93 Respiratory Rate 17 16 Blood Pressure 129/94 H 129/94 H Blood Pressure Mean 105 105 Pulse Ox 100 100 100 Oxygen Delivery Method Room Air Room Air Mechanical Ventilator Oxygen Flow Rate (L/min) 3 02/24/22 13:07 02/24/22 13:09 02/24/22 13:50 Temperature 99.8 F H 98.6 F 99.4 F H Temperature Source Temporal Temporal Temporal Pulse Rate 105 H 94 Respiratory Rate 20 H 18 Blood Pressure 130/87 H 130/94 H Blood Pressure Mean 101 106 Pulse Ox 100 100 Oxygen Delivery Method Trach Collar Room Air Trach Collar Oxygen Flow Rate (L/min) 02/24/22 14:00 Temperature 99.6 F H Temperature Source Temporal Pulse Rate 94 Respiratory Rate 18 Blood Pressure 130/84 H Blood Pressure Mean 99 Pulse Ox 100 Oxygen Delivery Method Mechanical Ventilator Oxygen Flow Rate (L/min) Weight Weight: 67.5 kg Body Mass Index (BMI) 35.9 Physical Exam Narrative GENERAL: Noncommunicative HEENT: ET tube in place EYES; Anicteric, Normal Conjunctiva NECK; supple, normal thyroid, RESPIRATORY: Diminished to auscultation CARDIOVASCULAR: Regular S1 S2, GI: soft, normoactive bowel sounds, : No Renal angle tenderness; EXTREMITIES: No edema, no clubbing, MUSCULOSKELETAL: Some contractures NEURO: Unable to assess SKIN: Flushed Results Lab / Micro Data Result Diagrams: 02/24/22 13:30 02/24/22 15:10 Labs: Laboratory Results - last 24 hr 02/24/22 13:30: WBC 8.9, RBC 3.70 L, Hgb 12.0, Hct 35.3 L, MCV 95.4, MCH 32.4 H, MCHC 34.0, RDW Std Deviation 46.3 H, RDW Coeff of Anne 13.2, Plt Count 251, MPV 10.0, Immature Gran % (Auto) 0.700, Neut % (Auto) 75.7 H, Lymph % (Auto) 13.4 L, [place] % (Auto) 6.7, Eos % (Auto) 2.9, Baso % (Auto) 0.6, Absolute Neuts (auto) 6.7, Absolute Lymphs (auto) 1.19, Nucleated RBC % 0 02/24/22 13:30: Sodium Cancelled, Potassium Cancelled, Chloride Cancelled, Carbon Dioxide Cancelled, Anion Gap Cancelled, BUN Cancelled, Creatinine Cancelled, Estim Creat Clear Calc Cancelled, Est GFR (MDRD) Af Amer Cancelled, Est GFR (MDRD) Non-Af Cancelled, BUN/Creatinine Ratio Cancelled, Glucose Cancelled, Calcium Cancelled, Total Bilirubin Cancelled, AST Cancelled, ALT Cancelled, Alkaline Phosphatase Cancelled, Total Protein Cancelled, Albumin Cancelled, Globulin Cancelled, Albumin/Globulin Ratio Cancelled 02/24/22 13:30: Lactic Acid Cancelled Radiology Impression Chest X-Ray 02/24/22 13:50 IMPRESSION: Stable elevation of the left hemidiaphragm. There has been essentially no change as compared to prior study. Electronically Signed: Francisco Vogt MD at 14:10 EDT , Assessment & Plan Assessment/Plan (1) Abscess, gluteal, left: PLAN: Patient is a 31-year-old lady with history of cerebral palsy, ch ronic respiratory failure vent dependent who was admitted with left gluteal fold abscess/wound having failed outpatient treatment 1. Left gluteal fold abscess/wound ? Patient has been admitted to regular nursing floor started on broad-spectrum antibiotic therapy with Rocephin. Plan was to have added antibiotics to cover MRSA. She has been treated with Bactrim without much improvement. Of note patient is allergic to both linezolid and vancomycin the vancomycin allergy is listed as renal failure if patient grows MRSA. Vanco and monitor kidney function closely 2. Cerebral palsy ? Supportive care 3. Diabetes mellitus type 2 ? Did continue patient home insulin regimen in addition to Accu-Cheks before meals and at bedtime 4. Chronic hypoxic respiratory failure ? As a result of cerebral palsy patient is vent dependent plan is to continue with patient home vent machine/settings 5. Chronic dysphagia ? As a result of patient cerebral palsy patient has a PEG tube plan is to consult dietitian to recommend PEG tube feeding 6. DVT prophylaxis ? SC Lovenox Advance planning; did discuss with the patient's family (mom) regarding advanced directives as well as CODE STATUS. Did explain the various scenarios involved ( FULL CODE, DNR CCA, DNR CCA with no intubation, and DNR CC and what each meant) patient's mom elected for patient to remain DNR comfort care arrest with no CPR. Patient is already on the vent via trach collar.. Order was placed. Time spent on discussion 18 minutes. Charges/Coding Visit Charges Inpatient E&M: 89969 Init Hosp L3 Procedures Hospitalists Procedures: 16469 Advncd Care Plan 30 Min
[2022-02-24] MEDS: Ceftriaxone 1 GM/50 ML BAG IV (15:30)
[2022-02-24 15:32] LABS: Mucous, Urine 0 SEEN /hpf (<or=2+)
[2022-02-24 15:49] LABS: Color, Urine Straw (Yellow); Glucose, Dipstick Normal (Normal); Ketone-Dipstick Negative (Negative); Leukocyte Esterase-Dipstick 500 /ul (Negative); Nitrite-Dipstick Positive (Negative); Occult Blood-Urine 150 /ul (Negative); Protein-Dipstick Negative (Negative); Urine Bilirubin Dipstick Negative (Negative); Urine Clarity Sl. Cloudy (Clear); Urine Urobilinogen Normal (Normal)
[2022-02-24 16:28] LABS: Bacteria 3+ /hpf (None Seen); Red Blood Cells-Urine 25-50 SEEN /hpf (0-5); Squamous Epithelial Cells - UA 0-5 SEEN /hpf (5-10); White Blood Cells 25-50 SEEN /hpf (0-5)
[2022-02-24] MEDS: 0.9% Normal Saline 1,000 ML 100 ML IV (16:44)
[2022-02-24 16:58] LABS: ALB/GLOB Ratio 0.9 RATIO (0.9-2.4); AST(SGOT) 21 U/L (15-37); Alanine Aminotransfer ALT/SGPT 18 U/L (13-56); Albumin, Serum 3.7 g/dL (3.2-5.0); Alkaline Phosphatase 69 U/L (45-117); Anion Gap 5 (5-15); BUN 9 mg/dL (7-18); BUN/Creat Ratio 19.6 RATIO (10-20); Calcium,Total 9.2 mg/dL (8.5-10.1); Chloride 104 mmol/L (98-107); Creatinine, Serum 0.46 mg/dL (0.55-1.02); EST Glomerular Filtration Rate 167 mL/min (>60); Est Glom Filt Rate - Afr Amer 203 mL/min (>60); Estimated Creatinine Clearance 134.28 ml/min; Globulin 4.1 g/dL (2.2-4.2); Glucose 100 mg/dL (74-106); Potassium 4.4 mmol/L (3.5-5.1); Protein, Total 7.8 g/dL (6.4-8.2); Sodium Level 137 mmol/L (136-145)
[2022-02-24 18:24] LABS: M R Staph aureus DNA By PCR Negative (Negative); Probe Check PASS; Specimen Processing Control PASS; Staph aureus DNA By PCR NEGATIVE (Negative)
[2022-02-24] MEDS: Juven (unflavored) Packet 1 PACKET GT (18:24)
[2022-02-24] MEDS: Ibuprofen 100 MG/5 ML UDC 400 MG GT (18:25)
[2022-02-24] MEDS: Insulin Lispro 100 UNIT/ML INSULN.PEN 8 UNIT SC (18:34)
[2022-02-24 18:40] LABS: Bedside Glucose 104 mg/dL (74-106)
[2022-02-24] MEDS: Albuterol 2.5 MG/3 ML VIAL.NEB. INHALATION (19:11)
[2022-02-24] MEDS: Budesonide Respules 0.5 MG/2 ML AMPUL.NEB. INHALATION (19:12)
[2022-02-24] MEDS: diazePAM 2 MG Tablet GT (21:03)
[2022-02-24] MEDS: diazePAM 5 MG Tablet GT (21:04)
[2022-02-24] MEDS: Baclofen 10 MG Tablet 30 MG GT (21:04)
[2022-02-24] MEDS: Methenamine Hippurate 1 GM Tablet PO (21:05)
[2022-02-24] MEDS: Ascorbic Acid 500 MG Tablet GT (21:05)
[2022-02-25] VITALS (9 sets, daily range): BP systolic 109–140; BP diastolic 61–91; PULSE 62–108; RESP 14–22; TEMP 36.3–37; O2SAT 96–100
[2022-02-25] MEDS: 0.9% Normal Saline 1,000 ML 100 ML IV ×2 (01:37→10:57)
[2022-02-25 06:24] LABS: Absolute Lymphocyte Count 1.39 X10^3/uL (0.83-4.51); Absolute Neutrophil Count 3.5 X10^3/uL (2.0-7.7); Basophil# 0.03 X10^3/uL; Basophil% 0.5 % (0-1); Eosinophil# 0.21 X10^3/uL; Eosinophils% 3.7 % (0-5); Hematocrit 34.6 % (37-47); Hemoglobin 11.1 g/dL (12.0-15.0); Lymphocyte # 1.39 X10^3/ul (0.83-4.51); Lymphocyte % 24.8 % (19-41); Mean Corp Hgb Conc 32.1 g/dL (32-36); Mean Corpuscular Hgb 31.6 pg (27.0-32.0); Mean Corpuscular Volume 98.6 fL (81-99); Monocyte% 8.9 % (0-10); NRBC Flagged by Analyzer 0 % (0-5); Neutrophil # 3.46 X10^3/uL (2.7-7.7); Neutrophil % 61.7 % (47-70); Platelet Count 229 K/mm3 (150-450); RBC Distribution Width CV 13.5 % (11.6-14.6); RBC Distribution Width SD 48.4 fl (35.1-43.9); Red Blood Count 3.51 M/mm3 (4.2-5.4); White Blood Count 5.6 K/mm3 (4.4-11.0)
[2022-02-25] MEDS: Baclofen 10 MG Tablet 30 MG GT ×3 (06:26→21:23)
[2022-02-25 06:57] LABS: Anion Gap 6 (5-15); BUN 14 mg/dL (7-18); BUN/Creat Ratio 47.5 RATIO (10-20); Calcium,Total 8.9 mg/dL (8.5-10.1); Chloride 108 mmol/L (98-107); EST Glomerular Filtration Rate 280 mL/min (>60); Est Glom Filt Rate - Afr Amer 338 mL/min (>60); Estimated Creatinine Clearance 205.89 ml/min; Glucose 124 mg/dL (74-106); Phosphorus 3.3 mg/dL (2.5-4.9); Sodium Level 139 mmol/L (136-145)
[2022-02-25] MEDS: Albuterol 2.5 MG/3 ML VIAL.NEB. INHALATION ×4 (07:17→19:25)
[2022-02-25] MEDS: Budesonide Respules 0.5 MG/2 ML AMPUL.NEB. INHALATION ×2 (07:17→19:25)
--- NOTE | 2022-02-25 07:17 | PN.HOSP_ITS ---
Subjective Subjective Patient admitted to a monitored bed where she is currently being managed. Wound cultures were obtained on admission results pending. Patient also had abnormal urinalysis, she is on Rocephin cultures were sent results also pending Objective Data Objective Data Vital Signs: Vital Signs Temp Pulse Resp BP Pulse Ox 97.6 F L 62 20 H 118/74 100 02/25/22 06:23 02/25/22 06:23 02/25/22 06:23 02/25/22 06:23 02/25/22 06:23 Oxygen Flow Rate (L/min) 3 Oxygen Delivery Method Trach Collar Weight: 48 kg Body Mass Index (BMI) 25.4 Intake & Output: Intake and Output for Last 24 Hours 02/23/22 02/24/22 02/25/22 23:59 23:59 23:59 Intake Total 290 / 290 1168.33 / 1168.33 Output Total 200 / 200 Balance 290 / 290 968.33 / 968.33 Lab / Micro Data Result Diagrams: 02/25/22 05:50 02/25/22 05:50 Labs: Laboratory Results - last 24 hr 02/24/22 13:30: WBC 8.9, RBC 3.70 L, Hgb 12.0, Hct 35.3 L, MCV 95.4, MCH 32.4 H, MCHC 34.0, RDW Std Deviation 46.3 H, RDW Coeff of Anne 13.2, Plt Count 251, MPV 10.0, Immature Gran % (Auto) 0.700, Neut % (Auto) 75.7 H, Lymph % (Auto) 13.4 L, Jenkins % (Auto) 6.7, Eos % (Auto) 2.9, Baso % (Auto) 0.6, Absolute Neuts (auto) 6.7, Absolute Lymphs (auto) 1.19, Nucleated RBC % 0 02/24/22 13:30: Sodium Cancelled, Potassium Cancelled, Chloride Cancelled, Carbon Dioxide Cancelled, Anion Gap Cancelled, BUN Cancelled, Creatinine Cancelled, Estim Creat Clear Calc Cancelled, Est GFR (MDRD) Af Amer Cancelled, Est GFR (MDRD) Non-Af Cancelled, BUN/Creatinine Ratio Cancelled, Glucose Cancelled, Calcium Cancelled, Total Bilirubin Cancelled, AST Cancelled, ALT Cancelled, Alkaline Phosphatase Cancelled, Total Protein Cancelled, Albumin Cancelled, Globulin Cancelled, Albumin/Globulin Ratio Cancelled 02/24/22 13:30: Lactic Acid Cancelled 02/24/22 14:40: Lactic Acid 1.7 02/24/22 15:10: Sodium 137, Potassium 4.4, Chloride 104, Carbon Dioxide 28.0, Anion Gap 5, BUN 9, Creatinine 0.46 L, Estim Creat Clear Calc 134.28, Est GFR (MDRD) Af Amer 203, Est GFR (MDRD) Non-Af 167, BUN/Creatinine Ratio 19.6, Glucose 100, Calcium 9.2, Total Bilirubin 0.20, AST 21, ALT 18, Alkaline Phosphatase 69, Total Protein 7.8, Albumin 3.7, Globulin 4.1, Albumin/Globulin Ratio 0.9 02/24/22 15:28: Urine Color Straw, Urine Clarity Sl. Cloudy, Urine pH 8.0, Ur Specific [place] 1.010, Urine Protein Negative, Urine Glucose (UA) Normal, Urine Ketones Negative, Urine Occult Blood 150 H, Urine Nitrite Positive H, Urine Bilirubin Negative, Urine Urobilinogen Normal, Ur Leukocyte Esterase 500 H, Urine RBC 25-50 SEEN, Urine WBC 25-50 SEEN, Ur Squamous Epith Cells 0-5 SEEN, Urine Bacteria 3+, Urine Mucus 0 SEEN 02/24/22 16:20: S.aureus Protein A PCR NEGATIVE, MRSA (PCR) Negative 02/24/22 18:17: POC Glucose 104 02/25/22 05:50: WBC 5.6, RBC 3.51 L, Hgb 11.1 L, Hct 34.6 L, MCV 98.6, MCH 31.6, MCHC 32.1 D, RDW Std Deviation 48.4 H, RDW Coeff of Anne 13.5, Plt Count 229, MPV 10.0, Immature Gran % (Auto) 0.400, Neut % (Auto) 61.7, Lymph % (Auto) 24.8, Jenkins % (Auto) 8.9, Eos % (Auto) 3.7, Baso % (Auto) 0.5, Absolute Neuts (auto) 3.5, Absolute Lymphs (auto) 1.39, Nucleated RBC % 0 02/25/22 05:50: Sodium 139, Potassium 4.0, Chloride 108 H, Carbon Dioxide 25.0, Anion Gap 6, BUN 14, Creatinine 0.30 L, Estim Creat Clear Calc 205.89, Est GFR (MDRD) Af Amer 338, Est GFR (MDRD) Non-Af 280, BUN/Creatinine Ratio 47.5 H, Glucose 124 H, Calcium 8.9, Phosphorus 3.3, Magnesium 2.0 Radiography Diagnostic Testing: Radiology Impression Chest X-Ray 02/24/22 13:50 IMPRESSION: Stable elevation of the left hemidiaphragm. There has been essentially no change as compared to prior study. Electronically Signed: Francisco Vogt MD at 14:10 EDT , Physical Exam Narrative GENERAL: Noncommunicative HEENT: ET tube in place EYES; Anicteric, Normal Conjunctiva NECK; supple, normal thyroid, RESPIRATORY: Diminished to auscultation CARDIOVASCULAR: Regular S1 S2, GI: soft, normoactive bowel sounds, : No Renal angle tenderness; EXTREMITIES: No edema, no clubbing, MUSCULOSKELETAL: Some contractures NEURO: Unable to assess SKIN: Flushed Assessment & Plan Assessment/Plan (1) Abscess, gluteal, left: PLAN: Plan Patient is a 31-year-old lady with history of cerebral palsy, chronic respiratory failure vent dependent who was admitted with left gluteal fold abscess/wound having failed outpatient treatment 1. Left gluteal fold abscess/wound ? Patient has been admitted to regular nursing floor started on broad-spectrum antibiotic therapy with Rocephin. Plan was to have added antibiotics to cover MRSA. She has been treated with Bactrim without much improvement. Of note patient is allergic to both linezolid and vancomycin the vancomycin allergy is listed as renal failure if patient grows MRSA. Vanco and monitor kidney funct ion closely ? Remains on Rocephin cultures still pending 2. Acute cystitis ? Secondary to intermittent catheterization at home. Patient is on Rocephin had grown E. coli in the past cultures were sent results pending 3. Cerebral palsy ? Supportive care 4. Chronic hypoxic respiratory failure ? As a result of cerebral palsy patient is vent dependent plan is to continue with patient home vent machine/settings 5. Chronic dysphagia ? As a result of patient cerebral palsy patient has a PEG tube plan is to consult dietitian to recommend PEG tube feeding 6. Diabetes mellitus type 2 ? Did continue patient home insulin regimen in addition to Accu-Cheks before meals and at bedtime 7. DVT prophylaxis ? GLADYS Posey Charges/Coding Visit Charges Inpatient E&M: 88742 Subs Hosp L2
[2022-02-25] MEDS: Insulin Lispro 100 UNIT/ML INSULN.PEN 8 UNIT SC ×3 (08:09→18:20)
[2022-02-25 08:20] LABS: Bedside Glucose 116 mg/dL (74-106)
[2022-02-25] MEDS: diazePAM 5 MG Tablet GT ×3 (10:21→21:30)
[2022-02-25] MEDS: diazePAM 2 MG Tablet GT ×2 (10:22→21:30)
[2022-02-25] MEDS: Ascorbic Acid 500 MG Tablet GT ×2 (10:22→21:24)
[2022-02-25] MEDS: Methenamine Hippurate 1 GM Tablet PO ×2 (10:22→21:24)
[2022-02-25] MEDS: Cholecalciferol (VIT D3) 25 MCG TABLET (1,000 UNITS) 50 MCG GT (10:22)
[2022-02-25] MEDS: Loratadine 10 MG Tablet GT (10:22)
[2022-02-25] MEDS: Juven (unflavored) Packet 1 PACKET GT ×2 (10:23→18:20)
[2022-02-25] MEDS: DiphenhydrAMINE 12.5 MG/5 ML UDC PO (10:23)
[2022-02-25] MEDS: Ferrous Sulfate 300 MG/5 ML UDC 60 MG GT (10:23)
[2022-02-25] MEDS: Enoxaparin 40 MG/0.4 ML Syringe SC (10:24)
--- NOTE | 2022-02-25 10:26 | WOUNDNOTE ---
wound photo: left inner buttock
[2022-02-25] MEDS: Multivitamin/Minerals/Iron (9 mg/15 ml) Liquid GT (10:37)
[2022-02-25] MEDS: Ceftriaxone 1 GM/50 ML BAG IV (10:56)
[2022-02-25] MEDS: Nystatin Powder 15gm Bottle 1 APPLIC TOPICAL (10:57)
--- NOTE | 2022-02-25 11:20 | CASEMGMT ---
HIREN WILSON assessment: Face to Face with patient for initial transition planning/care coordination assessment. HIREN WILSON introduced self and role at [facility], pt voices understanding and consents to assessment. Pt is lying in bed in no distress on her home vent with mother at bedside. Pt with hx CP and parents are guardians and pt gets total care at home. Care providers, pharmacy,?and demographics verified. ? Presentation: Pt sent by PCP for wound to left gluteal fold-failed OP antibx Admitting dx: Wound infection PCP: Lara Specialists: , endocrinology; Husam pulm; Héctor, uro; Marek, neuro; Sg, ID Preferred Pharmacy: [facility] Insurance: Medicaid Prescription Benefit:?Medicaid Living Will/HPOA: Pt's parents are guardians. LNOK: Mikey/Rina Montero, parents; Mikey Winston Jr, son Living Arrangements: Pt lives with parents in 1 story home with ramp and mother states no concerns at home. Pt gets total care for all needs. Transportation: [facility] Care DME/HHC: Per mother, pt has all needed DME at home, including but not limited to: home vent, suction, oxygen thru [employer], tube feed supplies/equipment thru [employer]. Mother gets other various supplies thru multiple vendors and states no concerns. [facility] 6-8hours/day. Pt is also active with [facility] and they are aware of pt admission. Pt has had [facility] in past for IV antibx. Mother states no concerns with pt going home at discharge. Pt is on disability. Pt/parents do not smoke cigarettes. Mother voices no further concerns/needs. CM to follow for any further discharge planning/needs. Advised mother to ask for CM if any further questions/concerns/needs arise, voices understanding. ? Plan: Home w/ family [place] HIREN WILSON
--- NOTE | 2022-02-25 12:02 | NS ---
Addendum entered and electronically signed by Lesa Perez 02/25/22 15:39: Return call from Lisa at [facility] about Jaden for home- Lisa states they can supply Jaden, need updated Certificate of Medical Necessity form that includes home enteral nutrition order and Jaden. CMN completed, faxed to Dr. Bermudez (PCP) for signature and will fax to [facility] (fax [phone]). Discussed w/ momRina at bedside. Rina requested updated information be sent to prior to discharge. Updated home enteral nutrition instructions faxed to [employer]. Charlene Perez MS, RDN, LD Original Note: Home tube feed supplies provided by [facility]. Left message w/ [facility] ([phone]) to see if they can supply Jaden for patient upon discharge. Charlene Perez MS, RDN, LD
--- NOTE | 2022-02-25 13:09 | CHAPLAIN ---
Type of Pastoral Visit _x__ Initial Visit ___ Follow-up Visit ___ On-call Visit ___ General Patient Visit ___ Spiritual Assessment ___ Family Conference ___ Bereavement ___ Rapid Response ___ Code Blue ___ Other (describe below) Pastoral Care Referral From ___ Patient _x__ Family ___ Nurse ___ Physician ___ Data Center Consultant ___ Earth Science Teacher ___ Other (describe below) Sacrament/Intervention ___ Active listening ___ Anointing ___ Alevism ___ Bereavement ___ Communion ___ Jolie exploration ___ ___ Life review ___ Prayer ___ Reconciliation ___ Sacrament of Sick _x__ Supportive presence ___ Wedding ___ Other (describe below) Pastoral Comments patient is non verbal handicapped individual that has been seen before in previous visits; parent has stepped out for a few minutes and CRANE SERVICE TECHNICIAN is in the room; pt appears to be awake; left a calling card for parent
--- NOTE | 2022-02-25 14:26 | NURSING ---
Straight cathed pt. 450ml clear yellow urine drained.
[2022-02-25 14:31] LABS: Bedside Glucose 99 mg/dL (74-106)
--- NOTE | 2022-02-25 18:40 | NURSING ---
Straight cathed. Removed 350 ml of clear yellow urine.
[2022-02-25 18:56] LABS: Bedside Glucose 114 mg/dL (74-106)
[2022-02-25 22:11] LABS: Bedside Glucose 141 mg/dL (74-106)
[2022-02-26] VITALS (9 sets, daily range): BP systolic 121–134; BP diastolic 68–85; PULSE 73–98; RESP 16–20; TEMP 36.4–36.8; O2SAT 96–100
[2022-02-26] MEDS: Baclofen 10 MG Tablet 30 MG GT ×3 (05:01→21:37)
[2022-02-26] MEDS: Budesonide Respules 0.5 MG/2 ML AMPUL.NEB. INHALATION ×2 (07:08→19:17)
[2022-02-26] MEDS: Albuterol 2.5 MG/3 ML VIAL.NEB. INHALATION ×4 (07:08→19:17)
[2022-02-26] MEDS: Insulin Lispro 100 UNIT/ML INSULN.PEN 8 UNIT SC ×3 (08:08→17:28)
[2022-02-26] MEDS: Cholecalciferol (VIT D3) 25 MCG TABLET (1,000 UNITS) 50 MCG GT (08:15)
[2022-02-26] MEDS: Ascorbic Acid 500 MG Tablet GT ×2 (08:15→21:37)
[2022-02-26] MEDS: diazePAM 5 MG Tablet GT ×3 (08:15→21:36)
[2022-02-26] MEDS: Loratadine 10 MG Tablet GT (08:15)
[2022-02-26] MEDS: diazePAM 2 MG Tablet GT ×2 (08:15→21:36)
[2022-02-26] MEDS: Methenamine Hippurate 1 GM Tablet PO ×2 (08:15→21:37)
[2022-02-26] MEDS: Multivitamin/Minerals/Iron (9 mg/15 ml) Liquid GT (08:15)
[2022-02-26] MEDS: Ferrous Sulfate 300 MG/5 ML UDC 60 MG GT (08:15)
[2022-02-26] MEDS: DiphenhydrAMINE 12.5 MG/5 ML UDC PO (08:17)
[2022-02-26] MEDS: Enoxaparin 40 MG/0.4 ML Syringe SC (08:17)
[2022-02-26] MEDS: Juven (unflavored) Packet 1 PACKET GT ×2 (08:17→17:30)
[2022-02-26 09:41] LABS: Bedside Glucose 130 mg/dL (74-106)
[2022-02-26] MEDS: Nystatin Powder 15gm Bottle 1 APPLIC TOPICAL (10:05)
[2022-02-26 13:16] LABS: Bedside Glucose 103 mg/dL (74-106)
[2022-02-26] MEDS: Ibuprofen 100 MG/5 ML UDC 400 MG GT (13:37)
--- NOTE | 2022-02-26 13:39 | CON.PCM.ID_ITS ---
Assessment & Plan Assessment/Plan (1) Abscess, gluteal, left: PLAN: Improving. Wound cx with ecoli and enterococcus like. Ucx with esbl ecoli, but urine has been doing well at home per her mother; consistent with colonization at this point. Cont meropenem for wound infection. Hopefully will only need short course of abx. Will follow, thank you HPI Consult Data Date of Consult: 02/26/22 HPI Narrative Reason for Consultation: wound infection HPI Narrative: MANDY RIVERA, is a 31 F with cerebral palsy, PEG in place, h/o kidney stones and recurrent esbl ecoli uti, presented with several days L gluteal pain/redness/drainage. No fever, urine has been doing well for past few months. No fever. Came to ED, admitted, now on meropenem, drainage and redness impr oving. ROS unobtainable due to mental status REPLACED BY [facility] Medical History Allergic rhinitis due to other allergen Amenorrhea Bedbound Bladder disease Bronchiectasis without acute exacerbation Bronchitis Cerebral palsy Chronic respiratory failure Diabetes Dietary restriction History of Clostridium difficile infection History of renal disease Hyperglycemia Irregular menstrual cycle Kidney stones Lactic acid acidosis Mild mental retardation MRSA infection Neuromuscular scoliosis Non-smoker On home oxygen therapy On tube feeding diet Pancreatitis Paraplegia PICC (peripherally inserted central catheter) in place Pneumonia Recurrent UTI Redness of skin Renal calculi Renal calculus or stone Respiratory acidosis Seizure Seizures Severe sepsis Skin tag of vaginal mucosa 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 Thrush Urinary tract infection due to extended-spectrum beta lactamase (ESBL) producing Escherichia coli Ventilator dependent Visual disturbance Vitamin D deficiency Home Medications baclofen 20 mg tablet 20 mg G-tube TID muscle spasms 09/02/13 [History Last Taken 02/24/22] oxcarbazepine 300 mg/5 mL (60 mg/mL) oral suspension (Trileptal) 8 ml G-tube BID seizure 08/28/17 [History Last Taken 02/24/22] ferrous sulfate 15 mg iron (75 mg)/mL oral syringe (ORAL USE) 60 mg feeding tube DAILY supplement 02/28/21 [History Last Taken 02/24/22] diazepam 5 mg/5 mL (1 mg/mL) oral solution 5 mg feeding tube DAILY@1400 spasms 05/20/21 [History Last Taken 02/24/22] diazepam 5 mg/5 mL (1 mg/mL) oral solution 7 mg feeding tube BID spasms 05/20/21 [History Last Taken 02/24/22] methenamine hippurate 1 gram tablet (Hiprex) 1 g feeding tube BID infection prevention 05/20/21 [History Last Taken 02/24/22] acidophilus 25 million cell-pectin, citrus 100 mg tablet 1 tab G-tube DAILY supplement 06/25/21 [History Last Taken 02/24/22] docusate sodium 60 mg/15 mL oral syrup 60 mg feeding tube DAILY stool softener 07/21/21 [History Last Taken 2 Weeks Ago ~02/10/22] guaifenesin 100 mg/5 mL oral liquid 200 mg (10 mL) G-tube Q4H PRN PRN thick secretions #1,000 mL 09/25/21 [Rx Last Taken 02/23/22] ascorbic acid (vitamin C) 500 mg/5 mL oral syrup 500 mg feeding tube BID SUPPLEMENT 12/12/21 [History Last Taken 02/24/22] baclofen 10 mg tablet 10 mg feeding tube TID SPASMS 12/12/21 [History Last Taken 02/24/22] bismuth subsalicylate 262 mg/15 mL oral suspension (Pepto-Bismol) 524 mg feeding tube Q30M PRN UPSET STOMACH 12/12/21 [History Last Taken 12/12/21] cholecalciferol (vitamin D3) 50 mcg (2,000 unit) capsule 50 mcg feeding tube DAILY SUPPLEMENT 12/12/21 [History Last Taken 02/24/22] diphenhydramine HCl 12.5 mg/5 mL oral liquid (Benadryl Allergy) 12.5 mg PO DAILY allergies 12/12/21 [History Last Taken Unknown] ibuprofen 100 mg/5 mL oral suspension 400 mg PO Q6H PRN Pain 12/12/21 [History Last Taken 02/24/22] miconazole nitrate 2 % vaginal cream (Monistat 7) 1 appful vaginal DAILY PRN YEAST 12/12/21 [History Last Taken 1 Week Ago ~02/17/22] multivitamin-folic acid-herbal no.275 400 mcg-200 mg/30 mL oral liquid 10 ml PO DAILY SUPPLEMENT 12/12/21 [History Last Taken 02/23/22] nystatin 100,000 unit/gram topical powder (Nystop) 1 applic topical DAILY SKIN 12/12/21 [History Last Taken 02/24/22] phenazopyridine 200 mg tablet (Pyridium) 200 mg feeding tube TID PRN Bladder Spasms 12/12/21 [History Last Taken 12/11/21] sodium chloride 0.9 % for nebulization 3 - 6 ml inhalation Q2H PRN Congestion 12/12/21 [History Last Taken 02/23/22] sulfamethoxazole 200 mg-trimethoprim 40 mg/5 mL oral suspension 20 ml PO BID infection 12/12/21 [History Last Taken 02/24/22] blood sugar diagnostic (True Metrix Pro Test Strip) #400 ea 01/05/22 [Rx Last Taken Unknown] lancets 33 gauge (BD Ultra Fine Lancets) #100 ea 01/05/22 [Rx Last Taken Unknown] pen needle, diabetic 32 gauge x 5/32 (BD Ultra-Fine Priyanka Pen Needle) #360 ea 01/05/22 [Rx Last Taken Unknown] levalbuterol HCl 1.25 mg/3 mL solution for nebulization 1.25 mg (3 mL) inhalation BID BREATHING #90 mL 01/16/22 [Rx Last Taken 02/23/22] cetirizine 1 mg/mL oral solution (Children's Zyrtec Allergy) 10 mg (10 mL) feeding tube DAILY PRN ALLERGIES #480 mL 01/28/22 [Rx Last Taken 02/24/22] fluticasone propionate 44 mcg/actuation HFA aerosol inhaler (Flovent HFA) 2 inh inhalation BID SOB #10.6 grams 01/28/22 [Rx Last Taken 02/23/22] fluticasone propionate 44 mcg/actuation HFA aerosol inhaler 2 puff inhalation BID sob 02/24/22 [History Last Taken 02/24/22] hydrocortisone 1 % topical cream 1 applic topical TID PRN Rash 02/24/22 [History Last Taken Unknown] insulin aspart U-100 100 unit/mL (3 mL) subcutaneous pen 7 unit subcut 4X/DAY Diabetes 02/24/22 [History Last Taken 02/24/22] levalbuterol HCl 1.25 mg/3 mL solution for nebulization (Xopenex) 1.25 mg inhalation Q4H sob 02/24/22 [History Last Taken 02/23/22] montelukast 10 mg tablet 10 mg PO QPM breathing 02/24/22 [History Last Taken Unknown] naphazoline 0.012 % eye drops 2 drp ophthalmic (eye) DAILY PRN allergies 02/24/22 [History Last Taken 02/23/22] Allergy/AdvReac Type Severity Reaction Status Date / Time linezolid Allergy Severe Other - Verified 02/24/22 12:10 seizure & coma vancomycin Allergy Severe Other - Verified 02/24/22 12:10 kidney failure tobramycin Allergy Intermediate Other - Verified 02/24/22 12:10 turned beet red nafcillin Allergy Mild Rash Verified 02/24/22 12:10 benzoin Allergy Unknown Rash Verified 02/24/22 12:10 milk Allergy Unknown Other Verified 02/24/22 12:10 soy Allergy Unknown Other Verified 02/24/22 12:10 polyethylene glycol 3350 AdvReac Unknown Hives Verified 02/24/22 12:10 [From Miralax] Family History Grandmother Cancer maternal Other Adopted Surgical History derotatox ostomies eyes straightened Gastrostomy tube in place H/O spinal fusion Presence of intrathecal baclofen pump rods to back Status post Jorje fundoplication surgery on gland under tongue tendonatomies Tracheostomy status Social History household members: other details: Mother and is vent dependent housing: house Smoking Status: Never smoker second hand exposure: No alcohol intake: never substance use type: does not use Physical Exam Const no apparent distress HEENT head/scalp atraumatic Eyes PERRL and EOMs intact bilaterally Neck supple Resp normal air movement and clear to auscultation bilaterally Cardio regular rate and regular rhythm GI soft to palpation, non-tender and non-distended Extremity General Extremity: Negative for edema Skin Skin Narrative: reviewed photo L gluteal wound Lab / Micro Data Attestation: I reviewed the patient's lab results. Result Diagrams: 02/25/22 05:50 02/25/22 05:50 Labs: Laboratory Results - last 24 hr 02/25/22 13:58: POC Glucose 99 02/25/22 18:17: POC Glucose 114 H 02/25/22 21:33: POC Glucose 141 H 02/26/22 08:04: POC Glucose 130 H 02/26/22 12:58: POC Glucose 103 Micro: Microbiology 02/24/22 16:20 Wound - Buttock Gram Stain - Final 02/24/22 16:20 Wound - Buttock Wound Culture - Preliminary Escherichia coli GPC Poss Enterococcus sp 02/24/22 14:40 Blood Culture (Wb) - Finger Blood Culture - Preliminary No growth in 48 hours. 02/24/22 13:30 Blood Culture (Wb) - Right Hand Blood Culture - Preliminary No growth in 48 hours. 02/24/22 15:28 Urine Catheter - Catheter Urine Culture - Final Escherichia coli
--- NOTE | 2022-02-26 14:18 | CASEMGMT ---
Call from Bria at [facility] and she is updated on pt. RANJANA order placed for pt's SN. Bria's call back info is [phone]. CM to follow. Moose MARADIAGA CM
--- NOTE | 2022-02-26 15:35 | CHAPLAIN ---
Type of Pastoral Visit _x__ Initial Visit ___ Follow-up Visit ___ On-call Visit ___ General Patient Visit ___ Spiritual Assessment ___ Family Conference ___ Bereavement ___ Rapid Response ___ Code Blue ___ Other (describe below) Pastoral Care Referral From ___ Patient _x__ Family ___ Nurse ___ Physician ___ Tester Rocket Engine ___ Supervisor Mill ___ Other (describe below) Sacrament/Intervention ___ Active listening ___ Anointing ___ Anabaptism ___ Bereavement ___ Communion ___ Jolie exploration ___ ___ Life review _x__ Prayer ___ Reconciliation ___ Sacrament of Sick _x__ Supportive presence ___ Wedding ___ Other (describe below) Pastoral Comments met with mother of patient in the room to offer support; mother welcomes prayer; mother acknowledges great care from staff; patient is non verbal but follows conversation and interacts with eyes and mouth movements;
--- NOTE | 2022-02-26 17:39 | PN.HOSP_ITS ---
Subjective Subjective Follow-up for ESBL E. coli in wound culture and urine culture. Patient on multiple antibiotics for infected ureteric stone in the past Objective Data Objective Data Vital Signs: Vital Signs Temp Pulse Resp BP Pulse Ox 97.9 F 95 20 H 121/68 H 100 02/26/22 17:23 02/26/22 17:23 02/26/22 17:23 02/26/22 17:23 02/26/22 17:23 Oxygen Flow Rate (L/min) 3 Oxygen Delivery Method Room Air Weight: 105 lb 13.15 oz Body Mass Index (BMI) 25.4 Intake & Output: Intake and Output for Last 24 Hours 02/24/22 02/25/22 02/26/22 23:59 23:59 23:59 Intake Total 290 / 290 4777.66 / 4777.66 780 / 780 Output Total 1350 / 1350 450 / 450 Balance 290 / 290 3427.66 / 3427.66 330 / 330 Lab / Micro Data Result Diagrams: 02/25/22 05:50 02/25/22 05:50 Labs: Laboratory Results - last 24 hr 02/25/22 18:17: POC Glucose 114 H 02/25/22 21:33: POC Glucose 141 H 02/26/22 08:04: POC Glucose 130 H 02/26/22 12:58: POC Glucose 103 Micro: Microbiology 02/24/22 16:20 Wound - Buttock Gram Stain - Final 02/24/22 16:20 Wound - Buttock Wound Culture - Preliminary Escherichia coli GPC Poss Enterococcus sp 02/24/22 14:40 Blood Culture (Wb) - Finger Blood Culture - Preliminary No growth in 48 hours. 02/24/22 13:30 Blood Culture (Wb) - Right Hand Blood Culture - Preliminary No growth in 48 hours. 02/24/22 15:28 Urine Catheter - Catheter Urine Culture - Final Escherichia coli Physical Exam Narrative Discussed with the patient's mother near the bedside. Wound examined with help of jovanni Christie General: Short stature, cerebral palsy, mild lethargy, nonverbal and noncommunicative HEENT: Open eyes Oral: Mouth open with drooling. Neck: Tracheostomy.? Neck rotated on left lateral position. Lungs:? Air entry diminished in bilateral lung bases.? No crepitation/rhonchi Cardiovascular: Sinus rhythm on monitor, Normal S1, Normal S2, No murmurs Abdomen: G-tube.? Bowel Sounds Present, Soft, Non Tender, Non-Distended : on diaper. Overflow incontinence.? No suprapubic tenderness.? Extremities: No edema, Capillary Refill Less than 3 Seconds Skin: Small wound over right gluteal fold/small abscess, pus can be expressed Musculoskeletal: Surgical scar on the left hip region in the past.? Contracture of upper and lower extremities and neck. Neurological: cerebral palsy with limited function. Psych/Mental Status: Flat affect. Assessment & Plan Assessment/Plan (1) Abscess, gluteal, left: PLAN: Plan Patient is a 31-year-old lady with history of cerebral palsy, chronic respir atory failure vent dependent who was admitted with left gluteal fold abscess/wound having failed outpatient treatment 1. Left gluteal fold abscess/wound ? Patient was admitted to regular nursing floor started on broad-spectrum antibiotic therapy with Rocephin. Patient allergic to linezolid and vancomycin. Patient also has history of kidney failure in the past. Wound culture shows ESBL producing E. coli, GPC possible Enterococcus. ID consulted. Started on meropenem. Rocephin discontinued. 2. Acute cystitis ? Secondary to intermittent catheterization at home. Previous urine culture s howed E. coli. Urine culture, more than 100,000 colonies ESBL E. coli. Rest as mentioned above 3. Cerebral palsy ? Supportive care 4. Chronic hypoxic respiratory failure ? As a result of cerebral palsy patient is vent dependent plan is to continue with patient home vent machine/settings 5. Chronic dysphagia ? As a result of patient cerebral palsy patient has a PEG tube plan is to consult dietitian to recommend PEG tube feeding 6. Diabetes mellitus type 2 ?Glucose 124. Continue patient home insulin regimen in addition to Accu-Cheks before meals and at bedtime 7. DVT prophylaxis ? TN Lovenox Charges/Coding Visit Charges Inpatient E&M: 36096 Subs Hosp L2
[2022-02-26 17:51] LABS: Bedside Glucose 124 mg/dL (74-106)
[2022-02-26] MEDS: 0.9% Saline Lock 10 ML Syringe IV (21:38)
--- NOTE | 2022-02-26 21:38 | NURSING ---
Pt dad refused BG check and coverage for the night.
[2022-02-27] VITALS (7 sets, daily range): BP systolic 103–142; BP diastolic 61–83; PULSE 68–91; RESP 17–32; TEMP 36.3–36.5; O2SAT 97–100
[2022-02-27] MEDS: Baclofen 10 MG Tablet 30 MG GT ×3 (05:17→21:14)
[2022-02-27] MEDS: Budesonide Respules 0.5 MG/2 ML AMPUL.NEB. INHALATION ×2 (07:08→19:59)
[2022-02-27] MEDS: Albuterol 2.5 MG/3 ML VIAL.NEB. INHALATION ×3 (07:08→19:59)
[2022-02-27] MEDS: Insulin Lispro 100 UNIT/ML INSULN.PEN 8 UNIT SC ×3 (08:04→17:22)
[2022-02-27 08:06] LABS: Bedside Glucose 129 mg/dL (74-106)
[2022-02-27] MEDS: Loratadine 10 MG Tablet GT (08:19)
[2022-02-27] MEDS: Ibuprofen 100 MG/5 ML UDC 400 MG GT (08:19)
[2022-02-27] MEDS: DiphenhydrAMINE 12.5 MG/5 ML UDC PO (08:19)
[2022-02-27] MEDS: Juven (unflavored) Packet 1 PACKET GT ×2 (08:19→17:21)
[2022-02-27] MEDS: Enoxaparin 40 MG/0.4 ML Syringe SC (08:22)
[2022-02-27] MEDS: diazePAM 5 MG Tablet GT ×3 (08:38→21:15)
[2022-02-27] MEDS: diazePAM 2 MG Tablet GT ×2 (08:39→21:15)
--- NOTE | 2022-02-27 08:55 | US_ITS ---
STUDY: SUPERFICIAL ULTRASOUND - LEFT GLUTEAL REGION. REASON FOR EXAM: Female, 31 years old. L gluteal fold drainage, please eval for abscess TECHNIQUE: A superficial ultrasound was performed with real-time and static medeiros-scale imaging. COMPARISON: None. FINDINGS: Targeted ultrasound of the left gluteal region was obtained. Lateral to the left side of the rectum, there is a heterogeneous fluid collection with increased vascularity measuring 1.4 cm x 1.6 x 0.6 cm. This may represent a focal abscess. US/Ext Non Vasc Limited/Soft Tiss IMPRESSION: 1.4 cm x 1.6 cm x 0.6 cm heterogeneous fluid collection lateral to the left side the rectum. Abscess should be ruled out. Electronically Signed: Francisco Vogt MD at 14:37 EDT ,
--- NOTE | 2022-02-27 08:56 | PN.ID_ITS ---
Physical Exam Narrative No fever, feeling well per father, still some drainage Const no apparent distress Resp normal air movement and clear to auscultation bilaterally Cardio regular rate and regular rhythm GI soft to palpation, non-tender and non-distended Skin Skin Narrative: no new rash ID ID: Route of nutrition/ use of supplements: [] Nutritional Intake: [] IV Site: [] Owens Catheter: [] Assessment & Plan Assessment/Plan (1) Abscess, gluteal, left: PLAN: Improving. Wound cx with esbl ecoli and enterococcus. Ucx with esbl e coli, but urine has been doing well at home per her mother; consistent with colonization at this point. Cont meropenem for wound infection. Still some drainage, will check soft tissue u/s for abscess. Will follow
--- NOTE | 2022-02-27 09:16 | PCM.PN.HOSP ---
Subjective Subjective Follow-up for wound infection with abscess, ESBL E. coli Objective Data Objective Data Vital Signs: Vital Signs Temp Pulse Resp BP Pulse Ox 97.3 F L 82 20 H 142/83 H 97 02/27/22 03:58 02/27/22 07:08 02/27/22 07:08 02/27/22 03:58 02/27/22 07:08 Oxygen Flow Rate (L/min) 3 Oxygen Delivery Method Mechanical Ventilator Weight: 105 lb 13.15 oz Body Mass Index (BMI) 25.4 Intake & Output: Intake and Output for Last 24 Hours 02/25/22 02/26/22 02/27/22 23:59 23:59 23:59 Intake Total 4777.66 / 4777.66 1200 / 1200 120 / 120 Output Total 1350 / 1350 830 / 830 Balance 3427.66 / 3427.66 370 / 370 120 / 120 Lab / Micro Data Result Diagrams: 02/25/22 05:50 02/25/22 05:50 Labs: Laboratory Results - last 24 hr 02/26/22 08:04: POC Glucose 130 H 02/26/22 12:58: POC Glucose 103 02/26/22 17:27: POC Glucose 124 H 02/27/22 08:00: POC Glucose 129 H Micro: Microbiology 02/24/22 16:20 Wound - Buttock Gram Stain - Final 02/24/22 16:20 Wound - Buttock Wound Culture - Final Escherichia coli Enterococcus faecalis 02/24/22 14:40 Blood Culture (Wb) - Finger Blood Culture - Preliminary No growth in 48 hours. 02/24/22 13:30 Blood Culture (Wb) - Right Hand Blood Culture - Preliminary No growth in 48 hours. 02/24/22 15:28 Urine Catheter - Catheter Urine Culture - Final Escherichia coli Physical Exam Narrative Discussed with the patient's mother near the bedside. No fever. ID ordered ultrasound of buttock region looking for tunneling or tracking of abscess. General: Short stature, cerebral palsy, mild lethargy, nonverbal and noncommunicative HEENT: Open eyes Oral: Mouth open with drooling. Neck: Tracheostomy.? Neck rotated on left lateral position. Lungs:? Air entry diminished in bilateral lung bases.? No crepitation/rhonchi Cardiovascular: Sinus rhythm on monitor, Normal S1, Normal S2, No murmurs Abdomen: G-tube.? Bowel Sounds Present, Soft, Non Tender, Non-Distended : on diaper. Overflow incontinence.? No suprapubic tenderness.? Extremities: No edema, Capillary Refill Less than 3 Seconds Skin: Small wound over right gluteal fold/small abscess Musculoskeletal: Surgical scar on the left hip region in the past.? Contracture of upper and lower extremities and neck. Neurological: cerebral palsy with limited function. Psych/Mental Status: Flat affect. Assessment & Plan Assessment/Plan (1) Abscess, gluteal, left: PLAN: Plan Patient is a 31-year-old lady with history of cerebral palsy, chronic respiratory failure vent dependent who was admitted with left gluteal fold abscess/wound having failed outpatient treatment 1. Left gluteal fold abscess/wound ? Patient was admitted to regular nursing floor started on broad-spectrum antibiotic therapy with Rocephin. Patient allergic to linezolid and vancomycin. Patient also has history of kidney failure in the past. Wound culture shows ESBL producing E. coli, GPC possible Enterococcus. ID consulted. Started on meropenem. Rocephin discontinued. 02/27: Patient is still has tenderness. No fever. Soft tissue ultrasound shows 1.4 x 1.6 x 0.6 cm [place] fluid collection lateral to left side of the rectum. 2. ESBL E. coli colonization. ? Secondary to intermittent catheterization at home. Previous urine culture showed E. coli. Urine culture, more than 100,000 colonies ESBL E. coli. Rest as mentioned above 02/27: Since patient has colonization of ESBL E. coli. Acute cystitis less likely. 3. Cerebral palsy ? Supportive care 4. Chronic hypoxic respiratory failure ? As a result of cerebral palsy patient is vent dependent plan is to continue with patient home vent machine/settings 5. Chronic dysphagia ? As a result of patient cerebral palsy patient has a PEG tube plan is to consult dietitian to recommend PEG tube feeding 6. Diabetes mellitus type 2 ?Glucose 124. Continue patient home insulin regimen in addition to Accu-Cheks before meals and at bedtime 7. DVT prophylaxis ? SC Lovenox Clinical Impression(s) from Imaging Studies Chest X-Ray 02/24/22 13:50 IMPRESSION: Stable elevation of the left hemidiaphragm. There has been essentially no change as compared to prior study. Soft Tissue Ultrasound 02/27/22 08:55 IMPRESSION: 1.4 cm x 1.6 cm x 0.6 cm heterogeneous fluid collection lateral to the left side the rectum. Abscess should be ruled out. Charges/Coding Visit Charges Inpatient E&M: 37264 Subs Hosp L2
--- NOTE | 2022-02-27 10:43 | CASEMGMT ---
Addendum entered by Mey Weinstein 02/27/22 10:44: Mom updated on all, voices understanding and voices no further questions/concerns/needs. Moose MARADIAGA CM Original Note: Clinicals and RANJANA order faxed to [facility]. Green sheet left on chart for HHC and transport home. Moose MARADIAGA CM
[2022-02-27] MEDS: Methenamine Hippurate 1 GM Tablet PO ×2 (11:48→21:15)
[2022-02-27] MEDS: Multivitamin/Minerals/Iron (9 mg/15 ml) Liquid GT (11:48)
[2022-02-27] MEDS: Nystatin Powder 15gm Bottle 1 APPLIC TOPICAL (11:48)
[2022-02-27] MEDS: Ascorbic Acid 500 MG Tablet GT ×2 (11:49→21:15)
[2022-02-27] MEDS: Cholecalciferol (VIT D3) 25 MCG TABLET (1,000 UNITS) 50 MCG GT (11:49)
[2022-02-27 13:01] LABS: Bedside Glucose 112 mg/dL (74-106)
[2022-02-27 17:20] LABS: Bedside Glucose 123 mg/dL (74-106)
[2022-02-27] MEDS: Montelukast 10 MG Tablet GT (21:14)
[2022-02-28] VITALS (9 sets, daily range): BP systolic 108–129; BP diastolic 64–93; PULSE 69–104; RESP 15–23; TEMP 36.6–37.2; O2SAT 98–100
[2022-02-28] MEDS: Baclofen 10 MG Tablet 30 MG GT ×3 (06:13→20:14)
[2022-02-28] MEDS: Budesonide Respules 0.5 MG/2 ML AMPUL.NEB. INHALATION ×2 (07:14→19:05)
[2022-02-28] MEDS: Albuterol 2.5 MG/3 ML VIAL.NEB. INHALATION ×4 (07:14→19:05)
[2022-02-28 07:26] LABS: Absolute Lymphocyte Count 1.38 X10^3/uL (0.83-4.51); Absolute Neutrophil Count 5.5 X10^3/uL (2.0-7.7); Basophil# 0.03 X10^3/uL; Basophil% 0.4 % (0-1); Eosinophil# 0.25 X10^3/uL; Eosinophils% 3.3 % (0-5); Hematocrit 35.8 % (37-47); Lymphocyte # 1.38 X10^3/ul (0.83-4.51); Lymphocyte % 18.2 % (19-41); Mean Corp Hgb Conc 33.5 g/dL (32-36); Mean Corpuscular Hgb 32.3 pg (27.0-32.0); Mean Corpuscular Volume 96.2 fL (81-99); Monocyte# 0.46 X10^3/uL; Monocyte% 6.1 % (0-10); NRBC Flagged by Analyzer 0 % (0-5); Neutrophil # 5.45 X10^3/uL (2.7-7.7); Neutrophil % 71.6 % (47-70); Platelet Count 246 K/mm3 (150-450); RBC Distribution Width CV 13.6 % (11.6-14.6); RBC Distribution Width SD 48.1 fl (35.1-43.9); Red Blood Count 3.72 M/mm3 (4.2-5.4); White Blood Count 7.6 K/mm3 (4.4-11.0)
[2022-02-28] MEDS: Multivitamin/Minerals/Iron (9 mg/15 ml) Liquid GT (08:01)
[2022-02-28] MEDS: Juven (unflavored) Packet 1 PACKET GT ×2 (08:01→17:05)
[2022-02-28 08:06] LABS: Bedside Glucose 130 mg/dL (74-106)
[2022-02-28] MEDS: diazePAM 5 MG Tablet GT ×3 (08:06→20:29)
[2022-02-28] MEDS: diazePAM 2 MG Tablet GT ×2 (08:07→20:29)
[2022-02-28 08:26] LABS: Anion Gap 7 (5-15); BUN 18 mg/dL (7-18); BUN/Creat Ratio 57.9 RATIO (10-20); Calcium,Total 9.3 mg/dL (8.5-10.1); Chloride 105 mmol/L (98-107); Creatinine, Serum 0.31 mg/dL (0.55-1.02); EST Glomerular Filtration Rate 263 mL/min (>60); Est Glom Filt Rate - Afr Amer 318 mL/min (>60); Estimated Creatinine Clearance 199.25 ml/min; Glucose 128 mg/dL (74-106); Potassium 3.9 mmol/L (3.5-5.1); Sodium Level 137 mmol/L (136-145)
[2022-02-28] MEDS: Methenamine Hippurate 1 GM Tablet PO ×2 (10:53→20:14)
[2022-02-28] MEDS: Enoxaparin 40 MG/0.4 ML Syringe SC (11:04)
[2022-02-28] MEDS: Nystatin Powder 15gm Bottle 1 APPLIC TOPICAL (11:04)
[2022-02-28] MEDS: Ascorbic Acid 500 MG Tablet GT ×2 (11:05→20:14)
[2022-02-28] MEDS: Cholecalciferol (VIT D3) 25 MCG TABLET (1,000 UNITS) 50 MCG GT (11:05)
[2022-02-28] MEDS: Insulin Lispro 100 UNIT/ML INSULN.PEN 8 UNIT SC ×2 (13:22→17:05)
[2022-02-28 13:26] LABS: Bedside Glucose 119 mg/dL (74-106)
--- NOTE | 2022-02-28 15:02 | PCM.PN.HOSP ---
Subjective Subjective Follow-up for ESBL positive E. coli wound infection and urine colonization Objective Data Objective Data Vital Signs: Vital Signs Temp Pulse Resp BP Pulse Ox 98.2 F 78 23 H 129/86 H 100 02/28/22 10:25 02/28/22 11:30 02/28/22 11:30 02/28/22 10:25 02/28/22 10:25 Oxygen Flow Rate (L/min) 3 Oxygen Delivery Method Trach Collar Weight: 105 lb 13.15 oz Body Mass Index (BMI) 25.4 Intake & Output: Intake and Output for Last 24 Hours 02/26/22 02/27/22 02/28/22 23:59 23:59 23:59 Intake Total 1200 / 1200 1290 / 1350 380 / 380 Output Total 830 / 830 100 / 350 250 / 250 Balance 370 / 370 1190 / 1000 130 / 130 Medical Nutrition Assessment Dietitian: Malnutrition Criteria Met Start: 02/27/22 13:56 Freq: Status: Active Protocol: Document 02/27/22 13:56 AG (Rec: 02/27/22 13:56 [id number]) Nutrition Malnutrition Evidence of Malnutrition Exists No Intake Problem Increased Nutrient Needs (specify) Etiology (protein) r/t wound Signs/Symptoms as evidenced by nonhealing gluteal wound Status Active Problem Recommendation Dietitian Recommendations/Changes 1). 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 Enteral nutrition provides 1350 calories, 66 g protein/day. Flushes provide 1540mL free fluid/day. 2). H2O flushes per home routine: @0900 240mL (Jaden); @1100 240mL; @1400 150mL; @ 1500 240mL; @1800 240mL (Jaden ); @1900 150mL; @2000 280mL 3). Jaden BID for wound healing- 1 packet mixed in 8oz water BID via PEG Lab / Micro Data Result Diagrams: 02/28/22 06:44 02/28/22 06:44 Labs: Laboratory Results - last 24 hr 02/27/22 17:16: POC Glucose 123 H 02/28/22 06:44: WBC 7.6, RBC 3.72 L, Hgb 12.0, Hct 35.8 L, MCV 96.2, MCH 32.3 H, MCHC 33.5, RDW Std Deviation 48.1 H, RDW Coeff of Anne 13.6, Plt Count 246, MPV 10.0, Immature Gran % (Auto) 0.400, Neut % (Auto) 71.6 H, Lymph % (Auto) 18.2 L, [facility] % (Auto) 6.1, Eos % (Auto) 3.3, Baso % (Auto) 0.4, Absolute Neuts (auto) 5.5, Absolute Lymphs (auto) 1.38, Nucleated RBC % 0 02/28/22 06:44: Sodium 137, Potassium 3.9, Chloride 105, Carbon Dioxide 25.0, Anion Gap 7, BUN 18, Creatinine 0.31 L, Estim Creat Clear Calc 199.25, Est GFR (MDRD) Af Amer 318, Est GFR (MDRD) Non-Af 263, BUN/Creatinine Ratio 57.9 H, Glucose 128 H, Calcium 9.3 02/28/22 07:56: POC Glucose 130 H 02/28/22 13:17: POC Glucose 119 H Micro: Microbiology 02/24/22 16:20 Wound - Buttock Gram Stain - Final 02/24/22 16:20 Wound - Buttock Wound Culture - Final Escherichia coli Enterococcus faecalis 02/24/22 14:40 Blood Culture (Wb) - Finger Blood Culture - Preliminary No growth in 48 hours. 02/24/22 13:30 Blood Culture (Wb) - Right Hand Blood Culture - Preliminary No growth in 48 hours. 02/24/22 15:28 Urine Catheter - Catheter Urine Culture - Final Escherichia coli Physical Exam Narrative No fever. Ultrasound finding discussed with the patient's mother near the bedside. Patient still has purulent drainage spontaneously. General: Short stature, cerebral palsy, lethargy, nonverbal and noncommunicative. On baseline HEENT: Open eyes Oral: Mouth open with drooling. Neck: Tracheostomy.? Neck rotated on left lateral position. Lungs:? Air entry diminished in bilateral lung bases.? No crepitation/rhonchi Cardiovascular: Sinus rhythm on monitor, Normal S1, Normal S2, No murmurs Abdomen: G-tube.? Bowel Sounds Present, Soft, Non Tender, Non-Distended : on diaper. Overflow incontinence.? No suprapubic tenderness.? Extremities: No edema, Capillary Refill Less than 3 Seconds Skin: Small wound over right gluteal fold/small abscess with purulent spontaneous drainage Musculoskeletal: Surgical scar on the left hip region in the past.? Contracture of upper and lower extremities and neck. Neurological: cerebral palsy with limited function. Psych/Mental Status: Flat affect. Assessment & Plan Assessment/Plan (1) Abscess, gluteal, left: PLAN: Plan Patient is a 31-year-old lady with history of cerebral palsy, chronic respiratory failure vent dependent who was admitted with left gluteal fold abscess/wound having failed outpatient treatment 1. Left gluteal fold abscess/wound ? Patient was admitted to regular nursing floor started on broad-spectrum antibiotic therapy with Rocephin. Patient allergic to linezolid and vancomycin. Patient also has history of kidney failure in the past. Wound culture shows ESBL producing E. coli, GPC possible Enterococcus. ID consulted. Started on meropenem. Rocephin discontinued. 02/27: Patient is still has tenderness. No fever. Soft tissue ultrasound shows 1.4 x 1.6 x 0.6 cm [place] fluid collection lateral to left side of the rectum. 02/28: Ultrasound findings discussed with the patient's mother. I called the surgeon Dr. Venegas, request consult and discussed opinion regarding incision and drainage. He will see the patient. 2. ESBL E. coli colonization. ? Secondary to intermittent catheterization at home. Previous urine culture showed E. coli. Urine culture, more than 100,000 colonies ESBL E. coli. Rest as mentioned above 02/27: Since patient has colonization of ESBL E. coli. Acute cystitis less likely. 3. Cerebral palsy ? Supportive care 4. Chronic hypoxic respiratory failure ? As a result of cerebral palsy patient is vent dependent plan is to continue with patient home vent machine/settings 5. Chronic dysphagia ? As a result of patient cerebral palsy patient has a PEG tube plan is to consult dietitian to recommend PEG tube feeding 6. Diabetes mellitus type 2 ?Glucose 124. Continue patient home insulin regimen in addition to Accu-Cheks before meals and at bedtime 7. DVT prophylaxis ? SC Lovenox Clinical Impression(s) from Imaging Studies Chest X-Ray 02/24/22 13:50 IMPRESSION: Stable elevation of the left hemidiaphragm. There has been essentially no change as compared to prior study. Soft Tissue Ultrasound 02/27/22 08:55 IMPRESSION: 1.4 cm x 1.6 cm x 0.6 cm heterogeneous fluid collection lateral to the left side the rectum. Abscess should be ruled out. Charges/Coding Visit Charges Inpatient E&M: 47865 Subs Hosp L2
--- NOTE | 2022-02-28 18:38 | EX.PCM.CON.S ---
Assessment & Plan Assessment/Plan (1) Abscess, gluteal, left: PLAN: The abscess appears very small. An ultrasound was 1 1.5 cm. At this point it is spontaneously draining and the patient's father says it is greatly improved since admission. I recommend continuing observation and antibiotics. The patient may be transition to oral antibiotics and this will likely resolve on its own. If there is any worsening I would perform an incision and drainage but at this point I believe that it will cause more bleeding and harm than benefit is low. Forrest Venegas MD Pager: [facility] [address] [place] [address] Outpatient [place], [address] [place] [address] Office: HPI Consult Data Date of Consult: 02/28/22 HPI Narrative HPI Narrative: MANDY RIVERA, is a 31 F who presents with UTI and perirectal abscess. Patient has been here for 4 days on antibiotics. The patient's father reports that it is improving and draining less. Patient does have cerebral palsy and is unable to answer any questions. [facility] Medical History Allergic rhinitis due to other allergen Amenorrhea Bedbound Bladder disease Bronchiectasis without acute exacerbation Bronchitis Cerebral palsy Chronic respiratory failure Diabetes Dietary restriction History of Clostridium difficile infection History of renal disease Hyperglycemia Irregular menstrual cycle Kidney stones Lactic acid acidosis Mild mental retardation MRSA infection Neuromuscular scoliosis Non-smoker On home oxygen therapy On tube feeding diet Pancreatitis Paraplegia PICC (peripherally inserted central catheter) in place Pneumonia Recurrent UTI Redness of skin Renal calculi Renal calculus or stone Respiratory acidosis Seizure Seizures Severe sepsis Skin tag of vaginal mucosa 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 Thrush Urinary tract infection due to extended-spectrum beta lactamase (ESBL) producing Escherichia coli Ventilator dependent Visual disturbance Vitamin D deficiency Home Medications baclofen 20 mg tablet 20 mg G-tube TID muscle spasms 09/02/13 [History Last Taken 02/24/22] oxcarbazepine 300 mg/5 mL (60 mg/mL) oral suspension (Trileptal) 8 ml G-tube BID seizure 08/28/17 [History Last Taken 02/24/22] ferrous sulfate 15 mg iron (75 mg)/mL oral syringe (ORAL USE) 60 mg feeding tube DAILY supplement 02/28/21 [History Last Taken 02/24/22] diazepam 5 mg/5 mL (1 mg/mL) oral solution 5 mg feeding tube DAILY@1400 spasms 05/20/21 [History Last Taken 02/24/22] diazepam 5 mg/5 mL (1 mg/mL) oral solution 7 mg feeding tube BID spasms 05/20/21 [History Last Taken 02/24/22] methenamine hippurate 1 gram tablet (Hiprex) 1 g feeding tube BID infection prevention 05/20/21 [History Last Taken 02/24/22] acidophilus 25 million cell-pectin, citrus 100 mg tablet 1 tab G-tube DAILY supplement 06/25/21 [History Last Taken 02/24/22] docusate sodium 60 mg/15 mL oral syrup 60 mg feeding tube DAILY stool softener 07/21/21 [History Last Taken 2 Weeks Ago ~02/10/22] guaifenesin 100 mg/5 mL oral liquid 200 mg (10 mL) G-tube Q4H PRN PRN thick secretions #1,000 mL 09/25/21 [Rx Last Taken 02/23/22] ascorbic acid (vitamin C) 500 mg/5 mL oral syrup 500 mg feeding tube BID SUPPLEMENT 12/12/21 [History Last Taken 02/24/22] baclofen 10 mg tablet 10 mg feeding tube TID SPASMS 12/12/21 [History Last Taken 02/24/22] bismuth subsalicylate 262 mg/15 mL oral suspension (Pepto-Bismol) 524 mg feeding tube Q30M PRN UPSET STOMACH 12/12/21 [History Last Taken 12/12/21] cholecalciferol (vitamin D3) 50 mcg (2,000 unit) capsule 50 mcg feeding tube DAILY SUPPLEMENT 12/12/21 [History Last Taken 02/24/22] diphenhydramine HCl 12.5 mg/5 mL oral liquid (Benadryl Allergy) 12.5 mg PO DAILY allergies 12/12/21 [History Last Taken Unknown] ibuprofen 100 mg/5 mL oral suspension 400 mg PO Q6H PRN Pain 12/12/21 [History Last Taken 02/24/22] miconazole nitrate 2 % vaginal cream (Monistat 7) 1 appful vaginal DAILY PRN YEAST 12/12/21 [History Last Taken 1 Week Ago ~02/17/22] multivitamin-folic acid-herbal no.275 400 mcg-200 mg/30 mL oral liquid 10 ml PO DAILY SUPPLEMENT 12/12/21 [History Last Taken 02/23/22] nystatin 100,000 unit/gram topical powder (Nystop) 1 applic topical DAILY SKIN 12/12/21 [History Last Taken 02/24/22] phenazopyridine 200 mg tablet (Pyridium) 200 mg feeding tube TID PRN Bladder Spasms 12/12/21 [History Last Taken 12/11/21] sodium chloride 0.9 % for nebulization 3 - 6 ml inhalation Q2H PRN Congestion 12/12/21 [History Last Taken 02/23/22] sulfamethoxazole 200 mg-trimethoprim 40 mg/5 mL oral suspension 20 ml PO BID infection 12/12/21 [History Last Taken 02/24/22] blood sugar diagnostic (True Metrix Pro Test Strip) #400 ea 01/05/22 [Rx Last Taken Unknown] lancets 33 gauge (BD Ultra Fine Lancets) #100 ea 01/05/22 [Rx Last Taken Unknown] pen needle, diabetic 32 gauge x 5/32 (BD Ultra-Fine Priyanka Pen Needle) #360 ea 01/05/22 [Rx Last Taken Unknown] levalbuterol HCl 1.25 mg/3 mL solution for nebulization 1.25 mg (3 mL) inhalation BID BREATHING #90 mL 01/16/22 [Rx Last Taken 02/23/22] cetirizine 1 mg/mL oral solution (Children's Zyrtec Allergy) 10 mg (10 mL) feeding tube DAILY PRN ALLERGIES #480 mL 01/28/22 [Rx Last Taken 02/24/22] fluticasone propionate 44 mcg/actuation HFA aerosol inhaler (Flovent HFA) 2 inh inhalation BID SOB #10.6 grams 01/28/22 [Rx Last Taken 02/23/22] fluticasone propionate 44 mcg/actuation HFA aerosol inhaler 2 puff inhalation BID sob 02/24/22 [History Last Taken 02/24/22] hydrocortisone 1 % topical cream 1 applic topical TID PRN Rash 02/24/22 [History Last Taken Unknown] insulin aspart U-100 100 unit/mL (3 mL) subcutaneous pen 7 unit subcut 4X/DAY Diabetes 02/24/22 [History Last Taken 02/24/22] levalbuterol HCl 1.25 mg/3 mL solution for nebulization (Xopenex) 1.25 mg inhalation Q4H sob 02/24/22 [History Last Taken 02/23/22] montelukast 10 mg tablet 10 mg PO QPM breathing 02/24/22 [History Last Taken Unknown] naphazoline 0.012 % eye drops 2 drp ophthalmic (eye) DAILY PRN allergies 02/24/22 [History Last Taken 02/23/22] Allergy/AdvReac Type Severity Reaction Status Date / Time linezolid Allergy Severe Other - Verified 02/24/22 12:10 seizure & coma vancomycin Allergy Severe Other - Verified 02/24/22 12:10 kidney failure tobramycin Allergy Intermediate Other - Verified 02/24/22 12:10 turned beet red nafcillin Allergy Mild Rash Verified 02/24/22 12:10 benzoin Allergy Unknown Rash Verified 02/24/22 12:10 milk Allergy Unknown Other Verified 02/24/22 12:10 soy Allergy Unknown Other Verified 02/24/22 12:10 polyethylene glycol 3350 AdvReac Unknown Hives Verified 02/24/22 12:10 [From Miralax] Family History Grandmother Cancer maternal Other Adopted Surgical History derotatox ostomies eyes straightened Gastrostomy tube in place H/O spinal fusion Presence of intrathecal baclofen pump rods to back Status post Jorje fundoplication surgery on gland under tongue tendonatomies Tracheostomy status Social History household members: other details: Mother and is vent dependent housing: house Smoking Status: Never smoker second hand exposure: No alcohol intake: never substance use type: does not use ROS Review of Systems ROS Unobtainable: due to mental status Physical Exam Const no apparent distress Cardio Rate: regular rate Rhythm: regular rhythm GI normal to inspection, nondistended, normoactive bowel sounds Skin Skin Narrative: Patient does have a small left gluteal abscess. The drainage is bloody. The area is nonerythematous. Medical Records Data Medical Nutrition Assessment Dietitian: Malnutrition Criteria Met Start: 02/27/22 13:56 Freq: Status: Active Protocol: Document 02/27/22 13:56 (Rec: 02/27/22 13:56 [id number]) Nutrition Malnutrition Evidence of Malnutrition Exists No Intake Problem Increased Nutrient Needs (specify) Etiology (protein) r/t wound Signs/Symptoms as evidenced by nonhealing gluteal wound Status Active Problem Recommendation Dietitian Recommendations/Changes 1). 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 Enteral nutrition provides 1350 calories, 66 g protein/day. Flushes provide 1540mL free fluid/day. 2). H2O flushes per home routine: @0900 240mL (Jaden); @1100 240mL; @1400 150mL; @ 1500 240mL; @1800 240mL (Jaden ); @1900 150mL; @2000 280mL 3). Jaden BID for wound healing- 1 packet mixed in 8oz water BID via PEG Lab / Micro Data Result Diagrams: 02/28/22 06:44 02/28/22 06:44 Labs: Laboratory Results - last 24 hr 02/28/22 06:44: WBC 7.6, RBC 3.72 L, Hgb 12.0, Hct 35.8 L, MCV 96.2, MCH 32.3 H, MCHC 33.5, RDW Std Deviation 48.1 H, RDW Coeff of Anne 13.6, Plt Count 246, MPV 10.0, Immature Gran % (Auto) 0.400, Neut % (Auto) 71.6 H, Lymph % (Auto) 18.2 L, [place] % (Auto) 6.1, Eos % (Auto) 3.3, Baso % (Auto) 0.4, Absolute Neuts (auto) 5.5, Absolute Lymphs (auto) 1.38, Nucleated RBC % 0 02/28/22 06:44: Sodium 137, Potassium 3.9, Chloride 105, Carbon Dioxide 25.0, Anion Gap 7, BUN 18, Creatinine 0.31 L, Estim Creat Clear Calc 199.25, Est GFR (MDRD) Af Amer 318, Est GFR (MDRD) Non-Af 263, BUN/Creatinine Ratio 57.9 H, Glucose 128 H, Calcium 9.3 02/28/22 07:56: POC Glucose 130 H 02/28/22 13:17: POC Glucose 119 H
[2022-02-28 18:41] LABS: Bedside Glucose 139 mg/dL (74-106)
[2022-02-28] MEDS: Montelukast 10 MG Tablet GT (20:28)
[2022-02-28] MEDS: Ibuprofen 100 MG/5 ML UDC 400 MG GT (20:28)
[2022-03-01] VITALS (7 sets, daily range): BP systolic 107–148; BP diastolic 63–80; PULSE 63–97; RESP 16–20; TEMP 36.6–37.3; O2SAT 96–100
[2022-03-01] MEDS: Baclofen 10 MG Tablet 30 MG GT ×3 (05:53→21:00)
[2022-03-01 06:33] LABS: Absolute Lymphocyte Count 1.46 X10^3/uL (0.83-4.51); Absolute Neutrophil Count 4.6 X10^3/uL (2.0-7.7); Basophil# 0.02 X10^3/uL; Basophil% 0.3 % (0-1); Eosinophils% 2.9 % (0-5); Hemoglobin 12.4 g/dL (12.0-15.0); Lymphocyte # 1.46 X10^3/ul (0.83-4.51); Lymphocyte % 21.4 % (19-41); Mean Corp Hgb Conc 32.6 g/dL (32-36); Mean Corpuscular Volume 98.2 fL (81-99); Monocyte% 7.3 % (0-10); NRBC Flagged by Analyzer 0 % (0-5); Neutrophil % 67.5 % (47-70); Platelet Count 245 K/mm3 (150-450); RBC Distribution Width CV 13.6 % (11.6-14.6); RBC Distribution Width SD 48.9 fl (35.1-43.9); Red Blood Count 3.87 M/mm3 (4.2-5.4); White Blood Count 6.8 K/mm3 (4.4-11.0)
[2022-03-01 06:53] LABS: Anion Gap 8 (5-15); BUN 26 mg/dL (7-18); BUN/Creat Ratio 76.7 RATIO (10-20); Calcium,Total 9.8 mg/dL (8.5-10.1); Chloride 105 mmol/L (98-107); Creatinine, Serum 0.34 mg/dL (0.55-1.02); EST Glomerular Filtration Rate 238 mL/min (>60); Est Glom Filt Rate - Afr Amer 288 mL/min (>60); Estimated Creatinine Clearance 181.67 ml/min; Glucose 136 mg/dL (74-106); Potassium 4.1 mmol/L (3.5-5.1); Sodium Level 139 mmol/L (136-145)
[2022-03-01] MEDS: Budesonide Respules 0.5 MG/2 ML AMPUL.NEB. INHALATION ×2 (07:23→19:20)
[2022-03-01] MEDS: Albuterol 2.5 MG/3 ML VIAL.NEB. INHALATION ×3 (07:23→19:20)
[2022-03-01] MEDS: Insulin Lispro 100 UNIT/ML INSULN.PEN 8 UNIT SC ×3 (08:41→17:19)
[2022-03-01] MEDS: Loratadine 10 MG Tablet GT (08:49)
[2022-03-01] MEDS: diazePAM 2 MG Tablet GT ×2 (08:50→21:06)
[2022-03-01] MEDS: diazePAM 5 MG Tablet GT ×3 (08:50→21:06)
[2022-03-01] MEDS: Ibuprofen 100 MG/5 ML UDC 400 MG GT (08:54)
[2022-03-01] MEDS: Juven (unflavored) Packet 1 PACKET GT ×2 (12:09→17:19)
[2022-03-01] MEDS: Ferrous Sulfate 300 MG/5 ML UDC 60 MG GT (12:10)
[2022-03-01] MEDS: Docusate Sodium 100 MG/10 ML UDC 60 MG GT (12:10)
[2022-03-01] MEDS: Cholecalciferol (VIT D3) 25 MCG TABLET (1,000 UNITS) 50 MCG GT (12:10)
[2022-03-01] MEDS: Enoxaparin 40 MG/0.4 ML Syringe SC (12:11)
[2022-03-01] MEDS: Methenamine Hippurate 1 GM Tablet PO ×2 (12:11→21:00)
[2022-03-01] MEDS: Multivitamin/Minerals/Iron (9 mg/15 ml) Liquid GT (12:12)
[2022-03-01] MEDS: Nystatin Powder 15gm Bottle 1 APPLIC TOPICAL (12:12)
[2022-03-01] MEDS: Ascorbic Acid 500 MG Tablet GT ×2 (12:12→21:02)
[2022-03-01 12:31] LABS: Bedside Glucose 118 mg/dL (74-106)
[2022-03-01 12:40] LABS: Bedside Glucose 134 mg/dL (74-106)
--- NOTE | 2022-03-01 13:50 | PCM.PN.HOSP ---
Subjective Subjective Follow-up on left ESBL gluteal abscess/ESBL UTI: Patient was seen and examined. Her mother was at the bedside. No more drainage from the gluteal wound. No other acute events overnight. Objective Data Objective Data Vital Signs: Vital Signs Temp Pulse Resp BP Pulse Ox 97.9 F 63 18 107/63 98 03/01/22 09:03 03/01/22 09:03 03/01/22 09:03 03/01/22 09:03 03/01/22 09:03 Oxygen Flow Rate (L/min) 3 Oxygen Delivery Method Mechanical Ventilator Weight: 48 kg Body Mass Index (BMI) 25.4 Intake & Output: Intake and Output for Last 24 Hours 02/27/22 02/28/22 03/01/22 23:59 23:59 23:59 Intake Total 1290 / 1350 745 / 745 150 / 150 Output Total 100 / 350 250 / 350 100 / 100 Balance 1190 / 1000 495 / 395 50 / 50 Medical Nutrition Assessment Dietitian: Malnutrition Criteria Met Start: 02/27/22 13:56 Freq: Status: Active Protocol: Document 02/27/22 13:56 AG (Rec: 02/27/22 13:56 [id number]) Nutrition Malnutrition Evidence of Malnutrition Exists No Intake Problem Increased Nutrient Needs (specify) Etiology (protein) r/t wound Signs/Symptoms as evidenced by nonhealing gluteal wound Status Active Problem Recommendation Dietitian Recommendations/Changes 1). 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 Enteral nutrition provides 1350 calories, 66 g protein/day. Flushes provide 1540mL free fluid/day. 2). H2O flushes per home routine: @0900 240mL (Jaden); @1100 240mL; @1400 150mL; @ 1500 240mL; @1800 240mL (Jaden ); @1900 150mL; @2000 280mL 3). Jaden BID for wound healing- 1 packet mixed in 8oz water BID via PEG Lab / Micro Data Result Diagrams: 03/01/22 05:20 03/01/22 05:20 Labs: Laboratory Results - last 24 hr 02/28/22 17:04: POC Glucose 139 H 03/01/22 05:20: WBC 6.8, RBC 3.87 L, Hgb 12.4, Hct 38.0, MCV 98.2, MCH 32.0, MCHC 32.6, RDW Std Deviation 48.9 H, RDW Coeff of Anne 13.6, Plt Count 245, MPV 10.0, Immature Gran % (Auto) 0.600, Neut % (Auto) 67.5, Lymph % (Auto) 21.4, [place] % (Auto) 7.3, Eos % (Auto) 2.9, Baso % (Auto) 0.3, Absolute Neuts (auto) 4.6, Absolute Lymphs (auto) 1.46, Nucleated RBC % 0 03/01/22 05:20: Sodium 139, Potassium 4.1, Chloride 105, Carbon Dioxide 26.0, Anion Gap 8, BUN 26 H, Creatinine 0.34 L, Estim Creat Clear Calc 181.67, Est GFR (MDRD) Af Amer 288, Est GFR (MDRD) Non-Af 238, BUN/Creatinine Ratio 76.7 H, Glucose 136 H, Calcium 9.8 03/01/22 08:36: POC Glucose 118 H 03/01/22 12:30: POC Glucose 134 H Micro: Microbiology 02/24/22 16:20 Wound - Buttock Gram Stain - Final 02/24/22 16:20 Wound - Buttock Wound Culture - Final Escherichia coli Enterococcus faecalis 02/24/22 14:40 Blood Culture (Wb) - Finger Blood Culture - Preliminary No growth in 48 hours. 02/24/22 13:30 Blood Culture (Wb) - Right Hand Blood Culture - Preliminary No growth in 48 hours. 02/24/22 15:28 Urine Catheter - Catheter Urine Culture - Final Escherichia coli Physical Exam Narrative Physical exam: General: Short stature, lethargic, nonverbal, noncommunicative, cerebral palsy HEENT: Atraumatic Oral: Moist Mucosa Neck: Supple Lungs: Diminished to auscultation Cardiovascular: HS I+II, regular, no murmurs Abdomen: Bowel Sounds Present, G-tube present, soft, Non Tender Extremities: Wasting of the lower extremity, no edema, discussed however the right hip, contractures of the upper and lower extremities as well as the neck Assessment & Plan Assessment/Plan (1) Abscess, gluteal, left: PLAN: Plan 1. Acute left gluteal fold ESBL E. coli/Enterococcus faecalis abscess/wound, improving Being followed by general surgery and infectious disease Continue IV meropenem 2. ESBL E. coli colonization/UTI secondary to intermittent catheterization Continue on IV meropenem, Hiprex, Phenzaopyridine 3. Chronic hypoxic respiratory failure, continue on chronic home vent machine/settings 4. Chronic dysphagia, status post PEG tube 6. Diabetes mellitus type 2, blood sugar is a fairly controlled, continue on Humalog insulin 4 times a day 7. DVT prophylaxis - Lovenox SC
[2022-03-01 17:41] LABS: Bedside Glucose 148 mg/dL (74-106)
[2022-03-01] MEDS: Montelukast 10 MG Tablet GT (21:00)
[2022-03-02 03:00] VITALS: BP 124/82; PULSE 92; RESP 20; TEMP 36.7; O2SAT 100
[2022-03-02] MEDS: Baclofen 10 MG Tablet 30 MG GT ×2 (05:55→14:26)
[2022-03-02 07:04] LABS: ALB/GLOB Ratio 0.9 RATIO (0.9-2.4); AST(SGOT) 12 U/L (15-37); Alanine Aminotransfer ALT/SGPT 22 U/L (13-56); Albumin, Serum 3.5 g/dL (3.2-5.0); Alkaline Phosphatase 66 U/L (45-117); Anion Gap 7 (5-15); BUN 18 mg/dL (7-18); BUN/Creat Ratio 68.7 RATIO (10-20); Calcium,Total 9.3 mg/dL (8.5-10.1); Chloride 105 mmol/L (98-107); Creatinine, Serum 0.26 mg/dL (0.55-1.02); EST Glomerular Filtration Rate 321 mL/min (>60); Est Glom Filt Rate - Afr Amer 388 mL/min (>60); Estimated Creatinine Clearance 237.56 ml/min; Globulin 3.9 g/dL (2.2-4.2); Glucose 134 mg/dL (74-106); Potassium 4.1 mmol/L (3.5-5.1); Protein, Total 7.4 g/dL (6.4-8.2); Sodium Level 137 mmol/L (136-145)
[2022-03-02 07:46] VITALS: PULSE 95; RESP 20; O2SAT 97
[2022-03-02] MEDS: Budesonide Respules 0.5 MG/2 ML AMPUL.NEB. INHALATION (07:46)
[2022-03-02] MEDS: Albuterol 2.5 MG/3 ML VIAL.NEB. INHALATION ×2 (07:46→14:11)
[2022-03-02 08:10] LABS: Bedside Glucose 130 mg/dL (74-106)
[2022-03-02 08:31] LABS: Absolute Neutrophil Count 4.5 X10^3/uL (2.0-7.7); Basophil# 0.03 X10^3/uL; Basophil% 0.5 % (0-1); Hematocrit 34.2 % (37-47); Hemoglobin 11.7 g/dL (12.0-15.0); Mean Corp Hgb Conc 34.2 g/dL (32-36); Mean Corpuscular Hgb 32.5 pg (27.0-32.0); Mean Platelet Vol. 9.6 fl (6.2-12.0); Monocyte# 0.48 X10^3/uL; Monocyte% 7.2 % (0-10); NRBC Flagged by Analyzer 0 % (0-5); Neutrophil # 4.53 X10^3/uL (2.7-7.7); Platelet Count 226 K/mm3 (150-450); RBC Distribution Width CV 13.4 % (11.6-14.6); RBC Distribution Width SD 47.3 fl (35.1-43.9); White Blood Count 6.7 K/mm3 (4.4-11.0)
[2022-03-02 09:27] VITALS: BP 114/65; PULSE 65; RESP 18; TEMP 36.4; O2SAT 100
[2022-03-02] MEDS: Loratadine 10 MG Tablet GT (09:36)
[2022-03-02] MEDS: Cholecalciferol (VIT D3) 25 MCG TABLET (1,000 UNITS) 50 MCG GT (09:36)
[2022-03-02] MEDS: Methenamine Hippurate 1 GM Tablet PO (09:36)
[2022-03-02] MEDS: Ascorbic Acid 500 MG Tablet GT (09:36)
[2022-03-02] MEDS: diazePAM 2 MG Tablet GT (09:37)
[2022-03-02] MEDS: diazePAM 5 MG Tablet GT ×2 (09:37→14:25)
[2022-03-02] MEDS: Ferrous Sulfate 300 MG/5 ML UDC 60 MG GT (09:38)
[2022-03-02] MEDS: Nystatin Powder 15gm Bottle 1 APPLIC TOPICAL (09:39)
[2022-03-02] MEDS: Docusate Sodium 100 MG/10 ML UDC 60 MG GT (09:40)
[2022-03-02] MEDS: Multivitamin/Minerals/Iron (9 mg/15 ml) Liquid GT (09:41)
[2022-03-02] MEDS: Juven (unflavored) Packet 1 PACKET GT (09:41)
[2022-03-02] MEDS: Insulin Lispro 100 UNIT/ML INSULN.PEN 8 UNIT SC ×2 (09:42→14:23)
[2022-03-02] MEDS: Enoxaparin 40 MG/0.4 ML Syringe SC (09:43)
[2022-03-02 12:35] LABS: Bedside Glucose 117 mg/dL (74-106)
[2022-03-02 14:11] VITALS: PULSE 92; RESP 20
--- NOTE | 2022-03-02 15:12 | DCINST_ITS ---
Discharge Instructions Diet Discharge Diet: Carb Control Diet Activity Discharge Activity: Return to Normal Activity Follow Up Care Test Results: Test results from this visit will be discussed in further detail at your follow- up appointment, if applicable. Discharge Plan Admission Admit Date/Time: 02/24/22 14:42 Attending Provider: Hillary Moncada Primary Care Provider: Sandra Bermudez Consulting Providers: Kane Dupree ; Rafa Bettencourt ; Forrest Venegas ; River Mireles Discharge Orders/Prescriptions Prescriptions: New montelukast 10 mg Tablet 10 mg G-tube QPM Qty: 0 0RF insulin lispro [Humalog KwikPen Insulin] 100 unit/mL Insulin Pen 8 unit subcut 4X/DAY Qty: 0 0RF Continued oxcarbazepine [Trileptal] 300 mg/5 mL (60 mg/mL) suspension 8 ml GT BID guaifenesin 100 mg/5 mL liquid 200 mg GT Q4H PRN PRN (Reason: thick secretions) Qty: 1000 3RF (DME) pen needle, diabetic [BD Ultra-Fine Priyanka Pen Needle] 32 gauge x 5/32 needle See Rx Instructions .ROUTE .MEDSUPPLY Qty: 360 3RF Rx Instructions: 4 times daily (DME) True Metrix Pro Test Strip Strip See Rx Instructions .ROUTE .MEDSUPPLY Qty: 400 3RF Rx Instructions: 4 times daily, plus extra for mental status change (DME) lancets [BD Ultra Fine Lancets] 33 gauge misc See Rx Instructions .ROUTE .MEDSUPPLY Qty: 100 0RF Rx Instructions: 4 times daily baclofen 20 MG tablet 20 mg GT TID Label Comments: pain ferrous sulfate 15 mg iron (75 mg)/mL Syringe 60 mg feeding tube DAILY diazepam 5 mg/5 mL (1 mg/mL) Solution 7 mg feeding tube BID diazepam 5 mg/5 mL (1 mg/mL) Solution 5 mg feeding tube DAILY@1400 methenamine hippurate [Hiprex] 1 gram Tablet 1 g feeding tube BID docusate sodium 60 mg/15 mL Syrup 60 mg feeding tube DAILY acidophilus-pectin, citrus 25 million cell -100 mg tablet 1 tab G-tube DAILY Rx Instructions: [id number] diphenhydramine HCl [Benadryl Allergy] 12.5 mg/5 mL Liquid 12.5 mg PO DAILY miconazole nitrate [Monistat 7] 2 % Cream 1 appful VAGINAL DAILY PRN (Reason: YEAST) phenazopyridine [Pyridium] 200 mg Tablet 200 mg feeding tube TID PRN (Reason: Bladder Spasms) baclofen 10 mg Tablet 10 mg feeding tube TID bismuth subsalicylate [Pepto-Bismol] 262 mg/15 mL Suspension 524 mg feeding tube Q30M PRN (Reason: UPSET STOMACH) nystatin [Nystop] 100,000 unit/gram Powder 1 applic TOPICAL DAILY ibuprofen 100 mg/5 mL Suspension 400 mg PO Q6H PRN (Reason: Pain) sodium chloride 0.9 % Solution For Nebulization 3 - 6 ml INHALATION Q2H PRN (Reason: Congestion) ascorbic acid (vitamin C) 500 mg/5 mL Syrup 500 mg feeding tube BID cholecalciferol (vitamin D3) 50 mcg (2,000 unit) Capsule 50 mcg feeding tube DAILY multivit-folic acid-herbal 275 400 mcg-200 mg/30 mL Liquid 10 ml PO DAILY fluticasone propionate 44 mcg/actuation Hfa Aerosol Inhaler 2 puff INHALATION BID levalbuterol HCl [Xopenex] 1.25 mg/3 mL Solution For Nebulization 1.25 mg INHALATION Q4H hydrocortisone 1 % Cream 1 applic TOPICAL TID PRN (Reason: Rash) naphazoline 0.012 % Drops 2 drp OPHTHALMIC (EYE) DAILY PRN (Reason: allergies) montelukast 10 mg tablet 10 mg PO QPM levalbuterol HCl 1.25 mg/3 mL solution for nebulization 1.25 mg INHALATION BID Qty: 90 5RF cetirizine [Children's Zyrtec Allergy] 1 mg/mL solution 10 mg feeding tube DAILY PRN (Reason: ALLERGIES) Qty: 480 6RF Flovent HFA 44 mcg/actuation HFA aerosol inhaler 2 inh INHALATION BID Qty: 10.6 6RF Discontinued sulfamethoxazole-trimethoprim [Bactrim] 200-40 mg/5 mL Suspension 20 ml PO BID insulin aspart U-100 100 unit/mL (3 mL) insulin pen 7 unit subcut 4X/DAY MDD 48 Rx Instructions: plus sliding scale 180 +1; 211 + 2; 241 +3; 270 + 4 units Referrals / Follow Up: Lara,Sandra, DO [Primary Care Provider] - Disposition Disposition (needs filled in before D/C Order can be placed): Home, Self Care
--- NOTE | 2022-03-02 15:21 | CASEMGMT ---
Karlee at [facility] aware of pt discharge today and D/C summ/instructions to be faxed once obtained. Mom aware of discharge and Alin, loan secretary, aware to set up pt transport home with [facility]. Mom voices no further questions/concerns/needs. Moose MARADIAGA CM
[2022-03-02 15:25] VITALS: BP 130/87; PULSE 99; RESP 18; TEMP 36.6; O2SAT 100
--- NOTE | 2022-03-02 15:30 | DS.PCM_ITS ---
Providers Date of Admission: 02/24/22 Date of Discharge: 03/02/22 Primary Care Physician: Dr. Sandra Bermudez, Consultations 02/24/22 16:03 Consult: Onc/Wound/irish moss operator Routine Comment: 02/26/22 08:12 Consult: Infectious Disease Routine Consulting Provider: Rafa Bettencourt Reason for Consult: ESBL Ecoli wound infection and UTI EMERGENT Consult: No MD Notified: Yes Date Notified: 02/26/22 Time Notified: 08:13 Method of Notification: Text 02/28/22 11:42 Consult: General Surgery Routine Consulting Provider: Forrest Venegas Reason for Consult: left perirectal abscess EMERGENT Consult: No MD Notified: Yes Date Notified: 02/28/22 Time Notified: 11:43 Method of Notification: Verbal Reason For Visit: WOUND INFECTION Diagnosis Discharge Diagnosis (1) Abscess, gluteal, left: Status: Acute Code(s): L02.31 - Cutaneous abscess of buttock Medications at Discharge Home Medications baclofen 20 mg tablet 20 mg G-tube TID muscle spasms 09/02/13 oxcarbazepine 300 mg/5 mL (60 mg/mL) oral suspension (Trileptal) 8 ml G-tube BID seizure 08/28/17 ferrous sulfate 15 mg iron (75 mg)/mL oral syringe (ORAL USE) 60 mg feeding tube DAILY supplement 02/28/21 diazepam 5 mg/5 mL (1 mg/mL) oral solution 5 mg feeding tube DAILY@1400 spasms 05/20/21 diazepam 5 mg/5 mL (1 mg/mL) oral solution 7 mg feeding tube BID spasms 05/20/21 methenamine hippurate 1 gram tablet (Hiprex) 1 g feeding tube BID infection prevention 05/20/21 acidophilus 25 million cell-pectin, citrus 100 mg tablet 1 tab G-tube DAILY supplement 06/25/21 docusate sodium 60 mg/15 mL oral syrup 60 mg feeding tube DAILY stool softener 07/21/21 guaifenesin 100 mg/5 mL oral liquid 200 mg (10 mL) G-tube Q4H PRN PRN thick secretions #1,000 mL 09/25/21 ascorbic acid (vitamin C) 500 mg/5 mL oral syrup 500 mg feeding tube BID SUPPLEMENT 12/12/21 baclofen 10 mg tablet 10 mg feeding tube TID SPASMS 12/12/21 bismuth subsalicylate 262 mg/15 mL oral suspension (Pepto-Bismol) 524 mg feeding tube Q30M PRN UPSET STOMACH 12/12/21 cholecalciferol (vitamin D3) 50 mcg (2,000 unit) capsule 50 mcg feeding tube DAILY SUPPLEMENT 12/12/21 diphenhydramine HCl 12.5 mg/5 mL oral liquid (Benadryl Allergy) 12.5 mg PO DAILY allergies 12/12/21 ibuprofen 100 mg/5 mL oral suspension 400 mg PO Q6H PRN Pain 12/12/21 miconazole nitrate 2 % vaginal cream (Monistat 7) 1 appful vaginal DAILY PRN YEAST 12/12/21 multivitamin-folic acid-herbal no.275 400 mcg-200 mg/30 mL oral liquid 10 ml PO DAILY SUPPLEMENT 12/12/21 nystatin 100,000 unit/gram topical powder (Nystop) 1 applic topical DAILY SKIN 12/12/21 phenazopyridine 200 mg tablet (Pyridium) 200 mg feeding tube TID PRN Bladder Spasms 12/12/21 sodium chloride 0.9 % for nebulization 3 - 6 ml inhalation Q2H PRN Congestion 12/12/21 blood sugar diagnostic (True Metrix Pro Test Strip) #400 ea 01/05/22 lancets 33 gauge (BD Ultra Fine Lancets) #100 ea 01/05/22 pen needle, diabetic 32 gauge x /32 (BD Ultra-Fine Priyanka Pen Needle) #360 ea 01/05/22 levalbuterol HCl 1.25 mg/3 mL solution for nebulization 1.25 mg (3 mL) inhalation BID BREATHING #90 mL 01/16/22 cetirizine 1 mg/mL oral solution (Children's Zyrtec Allergy) 10 mg (10 mL) feeding tube DAILY PRN ALLERGIES #480 mL 01/28/22 fluticasone propionate 44 mcg/actuation HFA aerosol inhaler (Flovent HFA) 2 inh inhalation BID SOB #10.6 grams 01/28/22 fluticasone propionate 44 mcg/actuation HFA aerosol inhaler 2 puff inhalation BID sob 02/24/22 hydrocortisone 1 % topical cream 1 applic topical TID PRN Rash 02/24/22 levalbuterol HCl 1.25 mg/3 mL solution for nebulization (Xopenex) 1.25 mg inhalation Q4H sob 02/24/22 montelukast 10 mg tablet 10 mg PO QPM breathing 02/24/22 naphazoline 0.012 % eye drops 2 drp ophthalmic (eye) DAILY PRN allergies 02/24/22 insulin lispro 100 unit/mL subcutaneous pen (Humalog KwikPen (U-100) Insulin) 8 unit (0.08 mL) subcut 4X/DAY #0 mL 03/02/22 montelukast 10 mg tablet 10 mg G-tube QPM #0 tabs 03/02/22 Hospital Course Operations None Procedures None Summary of Care Provided Minutes Spent on Discharge: 40 Hospital Course: 31 y/o female with cerebral palsy, chronic ventilator dependent, status post PEG tube, type II DM, history of recurrent ESBL E. coli UTI, history of kidney stones, who comes in with a left gluteal fold wound with purulent discharge. Patient was started on Bactrim in the outpatient bladder swelling was getting worse. Patient cultures grew E. coli and Enterococcus. His urine cultures grew also E. coli ESBL. Patient was started on meropenem. General surgery was consulted. Ultrasound of the left gluteal region showed a 1.4 cm x 1.6 cm x 0.6 cm heterogeneous fluid collection lateral to the left side of the rectum. The gluteal abscess spontaneously drained. No need for surgical intervention. There was no more drainage at time of discharge and the opening was almost closed. Patient completed antibiotics during his hospital stay. She was discharged without antibiotics. She will follow-up with her primary care doctor within a week for repeat blood work. Physical Exam Narrative Physical exam: General: Short stature, lethargic, nonverbal, noncommunicative, cerebral palsy HEENT: Atraumatic Oral: Moist Mucosa Neck: Supple Lungs: Diminished to auscultation Cardiovascular: HS I+II, regular, no murmurs Abdomen: Bowel Sounds Present, G-tube present, soft, Non Tender Extremities: Wasting of the lower extremity, no edema, discussed however the right hip, contractures of the upper and lower extremities as well as the neck Medical Records Data Medical Nutrition Assessment Dietitian: Malnutrition Criteria Met Start: 02/27/22 13:56 Freq: Status: Active Protocol: Document 02/27/22 13:56 (Rec: 02/27/22 13:56 AG [id number]) Nutrition Malnutrition Evidence of Malnutrition Exists No Intake Problem Increased Nutrient Needs (specify) Etiology (protein) r/t wound Signs/Symptoms as evidenced by nonhealing gluteal wound Status Active Problem Recommendation Dietitian Recommendations/Changes 1). 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 Enteral nutrition provides 1350 calories, 66 g protein/day. Flushes provide 1540mL free fluid/day. 2). H2O flushes per home routine: @0900 240mL (Jaden); @1100 240mL; @1400 150mL; @ 1500 240mL; @1800 240mL (Jaden ); @1900 150mL; @2000 280mL 3). Jaden BID for wound healing- 1 packet mixed in 8oz water BID via PEG Weight / BMI Weight Weight: 48 kg Body Mass Index (BMI) 25.4 ABG / Lab / Microbiology Data Result Diagrams: 03/02/22 08:14 03/02/22 06:16 Laboratory: Laboratory Results - last 24 hr 03/01/22 17:18: POC Glucose 148 H 03/02/22 06:16: WBC Cancelled, Corrected WBC Cancelled, RBC Cancelled, Hgb Cancelled, Hct Cancelled, MCV Cancelled, MCH Cancelled, MCHC Cancelled, RDW Std Deviation Cancelled, RDW Coeff of Anne Cancelled, Plt Count Cancelled, MPV Cancelled, Immature Gran % (Auto) Cancelled, Neut % (Auto) Cancelled, Lymph % (Auto) Cancelled, [place] % (Auto) Cancelled, Eos % (Auto) Cancelled, Baso % (Auto) Cancelled, Absolute Neuts (auto) Cancelled, Absolute Lymphs (auto) Cancelled, Total Counted Cancelled, Neutrophils % (Manual) Cancelled, Band Neutrophils % Cancelled, Lymphocytes % (Manual) Cancelled, Monocytes % (Manual) Cancelled, Eosinophils % (Manual) Cancelled, Basophils % (Manual) Cancelled, Metamyelocytes % Cancelled, Myelocytes % Cancelled, Promyelocytes % Cancelled, Blast Cells % Cancelled, Plasma Cell % (Manual) Cancelled, Other Cells % Cancelled, Nucleated RBC % Cancelled, Nucleated RBCs/100 WBC Cancelled, Differential Comment Cancelled, Diff Path Review Cancelled, Hypersegmented Neuts Cancelled, Atypical Lymphocytes Cancelled, Reactive Lymphocytes Cancelled, Smudge Cells Cancelled, Toxic Granulation Cancelled, Toxic Vacuolation Cancelled, Dohle Bodies Cancelled, Wero Rods Cancelled, Platelet Estimate Cancelled, Plt Morphology Comment Cancelled, RBC Morphology Cancelled, Polychromasia Cancelled, Hypochromasia Cancelled, Poikilocytosis Cancelled, Basophilic Stippling Cancelled, Anisocytosis Cancelled, Microcytosis Cancelled, Macrocytosis Cancelled, Spherocytes Cancelled, Sickle Cells Cancelled, Target Cells Cancel led, Tear Drop Cells Cancelled, Ovalocytes Cancelled, Stomatocytes Cancelled, [place] Bodies Cancelled, [place] Cells Cancelled, Bite Cells Cancelled, Crenated Cell Cancelled, Acanthocytes (Spur) Cancelled, Rouleaux Cancelled, Schistocytes Cancelled 03/02/22 06:16: Sodium 137, Potassium 4.1, Chloride 105, Carbon Dioxide 25.0, Anion Gap 7, BUN 18, Creatinine 0.26 L, Estim Creat Clear Calc 237.56, Est GFR (MDRD) Af Amer 388, Est GFR (MDRD) Non-Af 321, BUN/Creatinine Ratio 68.7 H, Glucose 134 H, Calcium 9.3, Total Bilirubin 0.10 L, AST 12 L, ALT 22, Alkaline Phosphatase 66, Total Protein 7.4, Albumin 3.5, Globulin 3.9, Albumin/Globulin Ratio 0.9 03/02/22 08:04: POC Glucose 130 H 03/02/22 08:14: WBC 6.7, RBC 3.60 L, Hgb 11.7 L, Hct 34.2 L, MCV 95.0, MCH 32.5 H, MCHC 34.2, RDW Std Deviation 47.3 H, RDW Coeff of Anne 13.4, Plt Count 226, MPV 9.6, Immature Gran % (Auto) 0.300, Neut % (Auto) 68.0, Lymph % (Auto) 21.0, [place] % (Auto) 7.2, Eos % (Auto) 3.0, Baso % (Auto) 0.5, Absolute Neuts (auto) 4.5, Absolute Lymphs (auto) 1.40, Nucleated RBC % 0 03/02/22 12:30: POC Glucose 117 H Microbiology: Microbiology 02/24/22 14:40 Blood Culture (Wb) - Finger Blood Culture - Final No growth in 5 days. 02/24/22 13:30 Blood Culture (Wb) - Right Hand Blood Culture - Final No growth in 5 days. 02/24/22 16:20 Wound - Buttock Gram Stain - Final 02/24/22 16:20 Wound - Buttock Wound Culture - Final Escherichia coli Enterococcus faecalis 02/24/22 15:28 Urine Catheter - Catheter Urine Culture - Final Escherichia coli D/C Instructions Discharge Diet: Carb Control Diet Meaningful Use Info Meaningful Use Diagnoses (Choose all that apply): None applicable Discharge Plan Admission Admit Date/Time: 02/24/22 14:42 Primary Reason for Your Visit: Left gluteal abscess Attending Provider: Hillary Moncada Primary Care Provider: Sandra Bermudez Consulting Providers: Kane Dupree ; Rafa Bettencourt ; Forrest Venegas ; River Mireles Discharge Orders/Prescriptions Prescriptions: New montelukast 10 mg Tablet 10 mg G-tube QPM Qty: 0 0RF insulin lispro [Humalog KwikPen Insulin] 100 unit/mL Insulin Pen 8 unit subcut 4X/DAY Qty: 0 0RF Continued oxcarbazepine [Trileptal] 300 mg/5 mL (60 mg/mL) suspension 8 ml GT BID guaifenesin 100 mg/5 mL liquid 200 mg GT Q4H PRN PRN (Reason: thick secretions) Qty: 1000 3RF (DME) pen needle, diabetic [BD Ultra-Fine Priyanka Pen Needle] 32 gauge x 5/32 needle See Rx Instructions .ROUTE .MEDSUPPLY Qty: 360 3RF Rx Instructions: 4 times daily (DME) True Metrix Pro Test Strip Strip See Rx Instructions .ROUTE .MEDSUPPLY Qty: 400 3RF Rx Instructions: 4 times daily, plus extra for mental status change (DME) lancets [BD Ultra Fine Lancets] 33 gauge misc See Rx Instructions .ROUTE .MEDSUPPLY Qty: 100 0RF Rx Instructions: 4 times daily baclofen 20 MG tablet 20 mg GT TID Label Comments: pain ferrous sulfate 15 mg iron (75 mg)/mL Syringe 60 mg feeding tube DAILY diazepam 5 mg/5 mL (1 mg/mL) Solution 7 mg feeding tube BID diazepam 5 mg/5 mL (1 mg/mL) Solution 5 mg feeding tube DAILY@1400 methenamine hippurate [Hiprex] 1 gram Tablet 1 g feeding tube BID docusate sodium 60 mg/15 mL Syrup 60 mg feeding tube DAILY acidophilus-pectin, citrus 25 million cell -100 mg tablet 1 tab G-tube DAILY Rx Instructions: [id number]-mja-cluemjo diphenhydramine HCl [Benadryl Allergy] 12.5 mg/5 mL Liquid 12.5 mg PO DAILY miconazole nitrate [Monistat 7] 2 % Cream 1 appful VAGINAL DAILY PRN (Reason: YEAST) phenazopyridine [Pyridium] 200 mg Tablet 200 mg feeding tube TID PRN (Reason: Bladder Spasms) baclofen 10 mg Tablet 10 mg feeding tube TID bismuth subsalicylate [Pepto-Bismol] 262 mg/15 mL Suspension 524 mg feeding tube Q30M PRN (Reason: UPSET STOMACH) nystatin [Nystop] 100,000 unit/gram Powder 1 applic TOPICAL DAILY ibuprofen 100 mg/5 mL Suspension 400 mg PO Q6H PRN (Reason: Pain) sodium chloride 0.9 % Solution For Nebulization 3 - 6 ml INHALATION Q2H PRN (Reason: Congestion) ascorbic acid (vitamin C) 500 mg/5 mL Syrup 500 mg feeding tube BID cholecalciferol (vitamin D3) 50 mcg (2,000 unit) Capsule 50 mcg feeding tube DAILY multivit-folic acid-herbal 275 400 mcg-200 mg/30 mL Liquid 10 ml PO DAILY fluticasone propionate 44 mcg/actuation Hfa Aerosol Inhaler 2 puff INHALATION BID levalbuterol HCl [Xopenex] 1.25 mg/3 mL Solution For Nebulization 1.25 mg INHALATION Q4H hydrocortisone 1 % Cream 1 applic TOPICAL TID PRN (Reason: Rash) naphazoline 0.012 % Drops 2 drp OPHTHALMIC (EYE) DAILY PRN (Reason: allergies) montelukast 10 mg tablet 10 mg PO QPM levalbuterol HCl 1.25 mg/3 mL solution for nebulization 1.25 mg INHALATION BID Qty: 90 5RF cetirizine [Children's Zyrtec Allergy] 1 mg/mL solution 10 mg feeding tube DAILY PRN (Reason: ALLERGIES) Qty: 480 6RF Flovent HFA 44 mcg/actuation HFA aerosol inhaler 2 inh INHALATION BID Qty: 10.6 6RF Discontinued sulfamethoxazole-trimethoprim [Bactrim] 200-40 mg/5 mL Suspension 20 ml PO BID insulin aspart U-100 100 unit/mL (3 mL) insulin pen 7 unit subcut 4X/DAY MDD 48 Rx Instructions: plus sliding scale 180 +1; 211 + 2; 241 +3; 270 + 4 units Referrals / Follow Up: Sandra Bermudez DO [Primary Care Provider] - 03/12/22 8:15 am (This is a virtual appointment- office will call) Disposition Disposition (needs filled in before D/C Order can be placed): Home, Self Care Charges/Coding Visit Charges Inpatient E&M: 87569 Disch Hosp
--- NOTE | 2022-03-02 15:36 | PCM.PN.ID ---
Physical Exam Narrative Doing well, no fever, wound improved Const no apparent distress Resp normal air movement and clear to auscultation bilaterally Cardio regular rate and regular rhythm GI soft to palpation, non-tender and non-distended Skin Skin Narrative: no new rash ID ID: Route of nutrition/ use of supplements: [] Nutritional Intake: [] IV Site: [] Owens Catheter: [] Assessment & Plan Assessment/Plan (1) Abscess, gluteal, left: PLAN: Improving. Wound cx with esbl ecoli and enterococcus. Ucx with esbl ecoli, but urine has been doing well at home per her mother; consistent with colonization at this point. Ok for d/c home off abx. Will follow as needed, d/w primary team
== END 2022-03-02 18:16 | disposition home health service (06) | DRG 383 ==
LOC: ED 14:44 → PCU 02-25 08:15
PROVIDERS: Internal Medicine; Admitting Provider Internal Medicine; Emergency Provider Emergency Medicine; PCP Internal Medicine; Visit Provider Internal Medicine
DX: L02.31 Cutaneous abscess of buttock (principal); Z93.0 Tracheostomy status; Z99.11 Dependence on respirator [ventilator] status; Z93.1 Gastrostomy status; G80.2 Spastic hemiplegic cerebral palsy; J96.11 Chronic respiratory failure with hypoxia; E11.9 Type 2 diabetes mellitus without complications; Z79.4 Long term (current) use of insulin; N30.00 Acute cystitis without hematuria; B95.2 Enterococcus as the cause of diseases classified elsewhere; B96.20 Unspecified Escherichia coli [E. coli] as the cause of diseases classified elsewhere; E55.9 Vitamin D deficiency, unspecified; F70 Mild intellectual disabilities; R13.10 Dysphagia, unspecified; Z74.01 Bed confinement status; Z66 Do not resuscitate; Z99.81 Dependence on supplemental oxygen; Z98.1 Arthrodesis status; Z79.899 Other long term (current) drug therapy; Z87.440 Personal history of urinary (tract) infections; Z87.442 Personal history of urinary calculi; Z79.51 Long term (current) use of inhaled steroids
CPT/HCPCS: 36415; 71045; 76882; 80048; 80053; 81001; 82962; 83605; 83735; 84100; 85025; 87040; 87070; 87077; 87086; 87088; 87186; 87205; 87640; 93005; 94640; 96361; 96365; 96366; 96367; 96372; 97802; 97803; 99221; 99251; 99285; J2185; A4216; G0378; G0463

== ENCOUNTER 2022-03-13 13:47 | Emergency (ER) | payer MEDICAID, SELFPAY ==
[2022-03-13] VITALS (10 sets, daily range): BP systolic 116–130; BP diastolic 73–94; PULSE 123–133; RESP 20–30; TEMP 37.1–37.7; O2SAT 97–100; BMI 30.5
--- NOTE | 2022-03-13 14:17 | EKG12_ITS ---
Test Reason : Blood Pressure : / mmHG Vent. Rate : 130 BPM Atrial Rate : 130 BPM P-R Int : 152 ms QRS Dur : 076 ms QT Int : 284 ms P-R-T Axes : 037 011 081 degrees QTc Int : 417 ms Sinus tachycardia Otherwise normal ECG Confirmed by MINGO LEIJA, KOBY ([id number]), supervising editor news reel KRYSTYNA ANDERSON ([id number]) on 03/17/2022 10:02:55 AM Referred By: Confirmed By:KOBY AGUILA MD
--- NOTE | 2022-03-13 14:20 | EX.ED.DYSGE1 ---
HPI History of Present Illness Chief Complaint: Abscess Detail of Chief Complaint: fever Informant: parent Limited: other (CP/nonverbal) Onset/Context/Timing Onset: Today Quality: 101 Location: rectally Current Severity: Mild Maximum Severity: Moderate Worsened by: nothing Relieved by: unk Associated Symptoms Associated Symptoms: abscess, see below; diarrhea Narrative Narrative: Patient has several palsy, nonverbal, ventilator dependent, does not walk or move. Mother is her information systems security officer. She had an abscess on her left buttock that tracked up her back requiring admission recently with IV antibiotics, she has been discharged home for about 10 days, she was on multiple antibiotics while in the hospital but she was not discharged on anything as a result of the culture showing ESBL E. coli and Enterococcus faecalis that is vancomycin-sensitive, requiring IV antibiotics only. Diarrhea that she has had for the past month has seen to really get worse in the last few days, become foul-smelling and more frequent. Today her heart rate has been in the 130s and 140s all day and she developed a 101 temp for the first day since she has been home. No trouble breathing on her ventilator or coughing or other obvious changes, mom straight caths or 3 times per day and she has noticed no differences in her urine. [facility] Medical History Allergic rhinitis due to other allergen Amenorrhea Bedbound Bladder disease Bronchiectasis without acute exacerbation Bronchitis Cerebral palsy Chronic respiratory failure Diabetes Dietary restriction History of Clostridium difficile infection History of renal disease Hyperglycemia Irregular menstrual cycle Kidney stones Lactic acid acidosis Mild mental retardation MRSA infection Neuromuscular scoliosis Non-smoker On home oxygen therapy On tube feeding diet Pancreatitis Paraplegia PICC (peripherally inserted central catheter) in place Pneumonia Recurrent UTI Redness of skin Renal calculi Renal calculus or stone Respiratory acidosis Seizure Seizures Severe sepsis Skin tag of vaginal mucosa 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 Thrush Urinary tract infection due to extended-spectrum beta lactamase (ESBL) producing Escherichia coli Ventilator dependent Visual disturbance Vitamin D deficiency Home Medications baclofen 20 mg tablet 20 mg G-tube TID muscle spasms 09/02/13 [History Last Taken 02/24/22] oxcarbazepine 300 mg/5 mL (60 mg/mL) oral suspension (Trileptal) 8 ml G-tube BID seizure 12/16/17 [History Last Taken 02/24/22] ferrous sulfate 15 mg iron (75 mg)/mL oral syringe (ORAL USE) 60 mg feeding tube DAILY supplement 02/28/21 [History Last Taken 02/24/22] diazepam 5 mg/5 mL (1 mg/mL) oral solution 5 mg feeding tube DAILY@1400 spasms 05/20/21 [History Last Taken 02/24/22] diazepam 5 mg/5 mL (1 mg/mL) oral solution 7 mg feeding tube BID spasms 05/20/21 [History Last Taken 02/24/22] methenamine hippurate 1 gram tablet (Hiprex) 1 g feeding tube BID infection prevention 05/20/21 [History Last Taken 02/24/22] docusate sodium 60 mg/15 mL oral syrup 60 mg feeding tube DAILY stool softener 07/21/21 [History Last Taken 2 Weeks Ago ~02/10/22] guaifenesin 100 mg/5 mL oral liquid 200 mg (10 mL) G-tube Q4H PRN PRN thick secretions #1,000 mL 09/25/21 [Rx Last Taken 02/23/22] ascorbic acid (vitamin C) 500 mg/5 mL oral syrup 500 mg feeding tube BID SUPPLEMENT 12/12/21 [History Last Taken 02/24/22] baclofen 10 mg tablet 10 mg feeding tube TID SPASMS 12/12/21 [History Last Taken 02/24/22] bismuth subsalicylate 262 mg/15 mL oral suspension (Pepto-Bismol) 524 mg feeding tube Q30M PRN UPSET STOMACH 12/12/21 [History Last Taken 12/12/21] cholecalciferol (vitamin D3) 50 mcg (2,000 unit) capsule 50 mcg feeding tube DAILY SUPPLEMENT 12/12/21 [History Last Taken 02/24/22] diphenhydramine HCl 12.5 mg/5 mL oral liquid (Benadryl Allergy) 12.5 mg PO DAILY allergies 12/12/21 [History Last Taken Unknown] ibuprofen 100 mg/5 mL oral suspension 400 mg PO Q6H PRN Pain 12/12/21 [History Last Taken 02/24/22] miconazole nitrate 2 % vaginal cream (Monistat 7) 1 appful vaginal DAILY PRN YEAST 12/12/21 [History Last Taken 1 Week Ago ~02/17/22] multivitamin-folic acid-herbal no.275 400 mcg-200 mg/30 mL oral liquid 10 ml PO DAILY SUPPLEMENT 12/12/21 [History Last Taken 02/23/22] nystatin 100,000 unit/gram topical powder (Nystop) 1 applic topical DAILY SKIN 12/12/21 [History Last Taken 02/24/22] phenazopyridine 200 mg tablet (Pyridium) 200 mg feeding tube TID PRN Bladder Spasms 12/12/21 [History Last Taken 12/11/21] sodium chloride 0.9 % for nebulization 3 - 6 ml inhalation Q2H PRN Congestion 12/12/21 [History Last Taken 02/23/22] blood sugar diagnostic (True Metrix Pro Test Strip) #400 ea 01/05/22 [Rx Last Taken Unknown] lancets 33 gauge (BD Ultra Fine Lancets) #100 ea 01/05/22 [Rx Last Taken Unknown] pen needle, diabetic 32 gauge x 5/32 (BD Ultra-Fine Priyanka Pen Needle) #360 ea 01/05/22 [Rx Last Taken Unknown] levalbuterol HCl 1.25 mg/3 mL solution for nebulization 1.25 mg (3 mL) inhalation BID BREATHING #90 mL 01/16/22 [Rx Last Taken 02/23/22] cetirizine 1 mg/mL oral solution (Children's Zyrtec Allergy) 10 mg (10 mL) feeding tube DAILY PRN ALLERGIES #480 mL 01/28/22 [Rx Last Taken 02/24/22] fluticasone propionate 44 mcg/actuation HFA aerosol inhaler 2 puff inhalation BID sob 02/24/22 [History Last Taken 02/24/22] hydrocortisone 1 % topical cream 1 applic topical TID PRN Rash 02/24/22 [History Last Taken Unknown] levalbuterol HCl 1.25 mg/3 mL solution for nebulization (Xopenex) 1.25 mg inhalation Q4H sob 02/24/22 [History Last Taken 02/23/22] montelukast 10 mg tablet 10 mg PO QPM breathing 02/24/22 [History Last Taken Unknown] naphazoline 0.012 % eye drops 2 drp ophthalmic (eye) DAILY PRN allergies 02/24/22 [History Last Taken 02/23/22] insulin lispro 100 unit/mL subcutaneous pen (Humalog KwikPen (U-100) Insulin) 8 unit (0.08 mL) subcut 4X/DAY #0 mL 03/02/22 [Rx Last Taken Unknown] montelukast 10 mg tablet 10 mg G-tube QPM #0 tabs 03/02/22 [Rx Last Taken Unknown] insulin aspart U-100 100 unit/mL (3 mL) subcutaneous pen 7 unit (0.07 mL) subcut 4X/DAY Diabetes #15 mL 03/03/22 [Rx Last Taken Unknown] lancets 30 gauge (Embrace Lancets) #100 ea 03/12/22 [Rx Last Taken Unknown] acidophilus 25 million cell-pectin, citrus 100 mg tablet 1 tab G-tube BID supplement #20 tabs 03/13/22 [Rx Last Taken 02/24/22] arginine 7 gram-glutamine 7 gram-calcium HMB 1.5 gram oral powder pack (Jaden) 1 ea PO DAILY 03/13/22 [History Last Taken Unknown] methenamine hippurate 1 gram tablet (Hiprex) 1 g PO BID 03/13/22 [History Last Taken Unknown] oxcarbazepine 300 mg/5 mL (60 mg/mL) oral suspension (Trileptal) 480 mg feeding tube BID 03/13/22 [History Last Taken Unknown] vancomycin 125 mg capsule 125 mg PO Q6H 10 days #40 caps 03/13/22 [Rx Last Taken Unknown] Allergy/AdvReac Type Severity Reaction Status Date / Time linezolid Allergy Severe Other - Verified 03/13/22 13:53 seizure & coma vancomycin Allergy Severe Other - Verified 03/13/22 13:53 kidney failure tobramycin Allergy Intermediate Other - Verified 03/13/22 13:53 turned beet red nafcillin Allergy Mild Rash Verified 03/13/22 13:53 benzoin Allergy Unknown Rash Verified 03/13/22 13:53 milk Allergy Unknown Other Verified 03/13/22 13:53 soy Allergy Unknown Other Verified 03/13/22 13:53 polyethylene glycol 3350 AdvReac Unknown Hives Verified 03/13/22 13:53 [From Miralax] Family History Grandmother Cancer maternal Other Adopted Surgical History derotatox ostomies eyes straightened Gastrostomy tube in place H/O spinal fusion Presence of intrathecal baclofen pump rods to back Status post Jorje fundoplication surgery on gland under tongue tendonatomies Tracheostomy status Social History household members: other details: Mother and is vent dependent housing: house Smoking Status: Never smoker second hand exposure: No alcohol intake: never substance use type: does not use EXAM Physical Exam Const Vital Signs: 03/13/22 13:49 03/13/22 13:51 03/13/22 14:32 Temperature 99.2 F H 99.2 F H Temperature Source Temporal Temporal Pulse Rate 132 H 125 H 130 H Respiratory Rate 20 H 23 H 30 H Blood Pressure 130/92 H 130/94 H Blood Pressure Mean 104 106 Pulse Ox 100 100 100 Oxygen Delivery Method Mechanical Ventilator Mechanical Ventilator Mechanical Ventilator Oxygen Flow Rate (L/min) 3 3 3 03/13/22 14:32 03/13/22 14:50 03/13/22 14:54 Temperature 99.9 F H 99.9 F H Temperature Source Temporal Temporal Pulse Rate 123 H Respiratory Rate 25 H Blood Pressure 125/90 H Blood Pressure Mean 101 Pulse Ox 97 Oxygen Delivery Method Mechanical Ventilator Mechanical Ventilator Oxygen Flow Rate (L/min) 3 03/13/22 15:17 03/13/22 15:17 03/13/22 15:26 Temperature 99.9 F H 98.7 F Temperature Source Temporal Temporal Pulse Rate 123 H Respiratory Rate Blood Pressure Blood Pressure Mean Pulse Ox Oxygen Delivery Method Oxygen Flow Rate (L/min) 03/13/22 17:00 03/13/22 17:00 03/13/22 17:00 Temperature 99.2 F H 99.2 F H Temperature Source Temporal Temporal Pulse Rate 125 H 125 H Respiratory Rate 21 H 21 H Blood Pressure 121/89 H 121/89 H Blood Pressure Mean 99 99 Pulse Ox 100 100 Oxygen Delivery Method Mechanical Ventilator Mechanical Ventilator Oxygen Flow Rate (L/min) 4 4 03/13/22 18:00 03/13/22 18:00 03/13/22 18:00 Temperature 99 F 99 F Temperature Source Temporal Temporal Pulse Rate 133 H 133 H Respiratory Rate 26 H Blood Pressure 122/76 H Blood Pressure Mean 91 Pulse Ox 100 Oxygen Delivery Method Mechanical Ventilator Oxygen Flow Rate (L/min) 4 03/13/22 20:07 Temperature Temperature Source Pulse Rate 123 H Respiratory Rate 21 H Blood Pressure 116/73 Blood Pressure Mean Pulse Ox 100 Oxygen Delivery Method Oxygen Flow Rate (L/min) Positive well nourished and well developed General Appearance ED: well developed and NAD HEENT Reports moist mucous membranes normocephalic and atraumatic Eyes PERRL Neck supple Resp normal respiratory effort and clear to auscultation bilaterally Cardio regular rate, regular rhythm and no murmurs Rate: tachycardic GI non-tender and non-distended GI Narrative: On rectal exam, there is some excoriated perianal tissue without an abscess there, however on the left buttock just away from the anus and not involving it, there is a small subcutaneous abscess 1 cm in diameter with a pinhole overlying it, no overlying erythema, and there is a small amount of purulent material expressible from it followed by serosanguineous fluid. The induration/abscess does not seem to track and is very localized. In order to evaluate this very small abscess, I had to wipe away a large amount of diarrhea over the entire area in her diaper. Auscultation: normoactive bowel sounds Palpation: soft Back/Spine no CVA tenderness Extremity normal to inspection General Extremety ED: Negative for pulses abnormal or tenderness General Extremity: Negative for pulses abnormal Neuro Neuro Narrative: Nonverbal, eyes open, does not follow commands. At baseline per information systems security officer. Skin no rashes or lesions noted MDM MDM MDM Narrative Medical decision making narrative: Mom describes this abscess having had tracked up her back and being very large. She did not have a procedure to drain at, just antibiotics according to mother. Now it is extremely small, I expressed all the pus I could out of it and I do not think performing incision and drainage will help anymore, mother was present for this and I showed her and she was in agreement with that based on what I showed her. I am more concerned that she could have developed C. difficile or another infection that could be causing her fever, and if she is indeed septic, I seriously doubt that this very small abscess is the cause, there is no overlying erythema at all and it is still draining. On further testing, the patient is testing positive for C. difficile. Her urine shows nitrites and a few white blood cells I sent this for culture but I do not think it is the source. She also got blood cultures and a full septic work-up. Her albumin is 3.7, creatinine normal, white blood count 13.4. She does not meet criteria for severe C. difficile. Since she is difficult to evaluate clinically and nonverbal, I sent her for a CT of the abdomen/pelvis to ensure she does not have pancolitis. The CT is negative for any signs of radiographic colitis. She is tachycardic, she is a low-grade temperature. She otherwise is doing well and not breathing more than usual according to mother. I discussed this with the hospitalist Dr. Miranda, she was in agreement that this patient would be reasonable to treat as an outpatient with oral vancomycin and if she does not respond to treatment that then reconsider admission. Mother is okay with that. Start her on oral vancomycin tonight, 125 mg 4 times daily for 10 days and to follow closely. Lab Data Attestation: I reviewed the patient's lab results. Labs: Laboratory Results - last 24 hr 03/13/22 03/13/22 03/13/22 14:30 15:05 15:05 WBC 13.4 H RBC 3.95 L Hgb 12.6 Hct 38.1 MCV 96.5 MCH 31.9 MCHC 33.1 RDW Std Deviation 45.4 H RDW Coeff of Anne 12.8 Plt Count 236 MPV 10.0 Immature Gran % (Auto) 0.400 Neut % (Auto) 82.6 H Lymph % (Auto) 5.8 L Wilkes % (Auto) 10.3 H Eos % (Auto) 0.7 Baso % (Auto) 0.2 Absolute Neuts (auto) 11.0 H Absolute Lymphs (auto) 0.77 L Nucleated RBC % 0 Sodium 139 Potassium 3.5 Chloride 104 Carbon Dioxide 28.0 Anion Gap 7 BUN 20 H Creatinine 0.39 L Estim Creat Clear Calc 189.72 Est GFR (MDRD) Af Amer 244 Est GFR (MDRD) Non-Af 201 BUN/Creatinine Ratio 51.0 H Glucose 166 H Lactic Acid Calcium 9.5 Total Bilirubin 0.20 AST 9 L ALT 20 Alkaline Phosphatase 83 Total Protein 8.0 Albumin 3.7 Globulin 4.3 H Albumin/Globulin Ratio 0.9 Urine Color Yellow Urine Clarity Cloudy Urine pH 8.0 Ur Specific Ceres 1.015 Urine Protein 15 H Urine Glucose (UA) 50 H Urine Ketones Negative Urine Occult Blood 10 H Urine Nitrite Positive H Urine Bilirubin Negative Urine Urobilinogen Normal Ur Leukocyte Esterase 500 H Urine RBC 0 SEEN Urine WBC 5-10 SEEN Ur Squamous Epith Cells 0 SEEN Urine Bacteria 2+ Urine Mucus 0 SEEN 03/13/22 15:05 WBC RBC Hgb Hct MCV MCH MCHC RDW Std Deviation RDW Coeff of Anne Plt Count MPV Immature Gran % (Auto) Neut % (Auto) Lymph % (Auto) Wilkes % (Auto) Eos % (Auto) Baso % (Auto) Absolute Neuts (auto) Absolute Lymphs (auto) Nucleated RBC % Sodium Potassium Chloride Carbon Dioxide Anion Gap BUN Creatinine Estim Creat Clear Calc Est GFR (MDRD) Af Amer Est GFR (MDRD) Non-Af BUN/Creatinine Ratio Glucose Lactic Acid 1.8 Calcium Total Bilirubin AST ALT Alkaline Phosphatase Total Protein Albumin Globulin Albumin/Globulin Ratio Urine Color Urine Clarity Urine pH Ur Specific Ceres Urine Protein Urine Glucose (UA) Urine Ketones Urine Occult Blood Urine Nitrite Urine Bilirubin Urine Urobilinogen Ur Leukocyte Esterase Urine RBC Urine WBC Ur Squamous Epith Cells Urine Bacteria Urine Mucus Radiography Chest X-Ray - ED: 1 View, Read by ED Physician, No Acute Disease and Chronic Changes Diagnostic Testing: Clinical Impression(s) from Imaging Studies Chest X-Ray 03/13/22 15:15 IMPRESSION: Elevation of the left hemidiaphragm. No definite infiltrate is seen. Electronically Signed: Francisco Vogt MD at 15:35 EDT , Abdomen/Pelvis CT 03/13/22 17:22 IMPRESSION: (NOT LISTED IN ORDER OF SIGNIFICANCE) There is dilation of the common bile duct. A common bile duct stone is not seen. The CBD diameter is 7 mm. There is a thin stable linear area of post surgical scar posteriorly in the soft tissue. There is no drainable abscess near the coccyx. Other findings as above. Electronically Signed: Sameer Bradshaw MD at 18:11 EDT , Rhythm Strip Rhythm Strip: Sinus Tach Rate: 130 Ectopy: None EKG Initial EKG: Attestation: I personally reviewed and interpreted this EKG as follows: Interpretation: No Acute Injury Pattern and Sinus Tachycardia Discharge Plan Triage Chief Complaint: Abscess ED Provider: Francisco Hernandez Dx/Rx/DC Orders Clinical Impression: C. difficile diarrhea, Tachycardia Instructions: Clostridium Difficile Infection Prescriptions: New vancomycin 125 mg capsule 125 mg PO Q6H 10 Days Qty: 40 0RF Continued oxcarbazepine [Trileptal] 300 mg/5 mL (60 mg/mL) suspension 8 ml GT BID guaifenesin 100 mg/5 mL liquid 200 mg GT Q4H PRN PRN (Reason: thick secretions) Qty: 1000 3RF (DME) pen needle, diabetic [BD Ultra-Fine Priyanka Pen Needle] 32 gauge x 5/32 needle See Rx Instructions .ROUTE .MEDSUPPLY Qty: 360 3RF Rx Instructions: 4 times daily (DME) True Metrix Pro Test Strip Strip See Rx Instructions .ROUTE .MEDSUPPLY Qty: 400 3RF Rx Instructions: 4 times daily, plus extra for mental status change (DME) lancets [BD Ultra Fine Lancets] 33 gauge misc See Rx Instructions .ROUTE .MEDSUPPLY Qty: 100 0RF Rx Instructions: 4 times daily baclofen 20 MG tablet 20 mg GT TID Label Comments: pain ferrous sulfate 15 mg iron (75 mg)/mL Syringe 60 mg feeding tube DAILY diazepam 5 mg/5 mL (1 mg/mL) Solution 7 mg feeding tube BID diazepam 5 mg/5 mL (1 mg/mL) Solution 5 mg feeding tube DAILY@1400 methenamine hippurate [Hiprex] 1 gram Tablet 1 g feeding tube BID docusate sodium 60 mg/15 mL Syrup 60 mg feeding tube DAILY diphenhydramine HCl [Benadryl Allergy] 12.5 mg/5 mL Liquid 12.5 mg PO DAILY miconazole nitrate [Monistat 7] 2 % Cream 1 appful VAGINAL DAILY PRN (Reason: YEAST) phenazopyridine [Pyridium] 200 mg Tablet 200 mg feeding tube TID PRN (Reason: Bladder Spasms) baclofen 10 mg Tablet 10 mg feeding tube TID bismuth subsalicylate [Pepto-Bismol] 262 mg/15 mL Suspension 524 mg feeding tube Q30M PRN (Reason: UPSET STOMACH) nystatin [Nystop] 100,000 unit/gram Powder 1 applic TOPICAL DAILY ibuprofen 100 mg/5 mL Suspension 400 mg PO Q6H PRN (Reason: Pain) sodium chloride 0.9 % Solution For Nebulization 3 - 6 ml INHALATION Q2H PRN (Reason: Congestion) ascorbic acid (vitamin C) 500 mg/5 mL Syrup 500 mg feeding tube BID cholecalciferol (vitamin D3) 50 mcg (2,000 unit) Capsule 50 mcg feeding tube DAILY multivit-folic acid-herbal 275 400 mcg-200 mg/30 mL Liquid 10 ml PO DAILY fluticasone propionate 44 mcg/actuation Hfa Aerosol Inhaler 2 puff INHALATION BID levalbuterol HCl [Xopenex] 1.25 mg/3 mL Solution For Nebulization 1.25 mg INHALATION Q4H hydrocortisone 1 % Cream 1 applic TOPICAL TID PRN (Reason: Rash) naphazoline 0.012 % Drops 2 drp OPHTHALMIC (EYE) DAILY PRN (Reason: allergies) montelukast 10 mg tablet 10 mg PO QPM montelukast 10 mg Tablet 10 mg G-tube QPM Qty: 0 0RF insulin lispro [Humalog KwikPen Insulin] 100 unit/mL Insulin Pen 8 unit subcut 4X/DAY Qty: 0 0RF oxcarbazepine [Trileptal] 300 mg/5 mL (60 mg/mL) Suspension 480 mg feeding tube BID methenamine hippurate [Hiprex] 1 gram Tablet 1 g PO BID Jaden 7-7-1.5 gram Powder In Packet 1 ea PO DAILY levalbuterol HCl 1.25 mg/3 mL solution for nebulization 1.25 mg INHALATION BID Qty: 90 5RF cetirizine [Children's Zyrtec Allergy] 1 mg/mL solution 10 mg feeding tube DAILY PRN (Reason: ALLERGIES) Qty: 480 6RF insulin aspart U-100 100 unit/mL (3 mL) insulin pen 7 unit subcut 4X/DAY MDD 48 Qty: 15 0RF Rx Instructions: plus sliding scale 180 +1; 211 + 2; 241 +3; 270 + 4 units (DME) lancets [Embrace Lancets] 30 gauge misc See Rx Instructions .Route Qty: 100 3RF Rx Instructions: As directed Changed acidophilus-pectin, citrus 25 million cell -100 mg tablet 1 tab G-tube BID Qty: 20 0RF Rx Instructions: [id number] Primary Care Provider: Sandra Bermudez Referrals: Sandra Bermudez DO [Primary Care Provider] - 3-5 Days Disposition Disposition: Home, Self Care Discharge Date/Time: 03/13/22 21:01
[2022-03-13 14:37] LABS: Mucous, Urine 0 SEEN /hpf (<or=2+); Red Blood Cells-Urine 0 SEEN /hpf (0-5); Squamous Epithelial Cells - UA 0 SEEN /hpf (5-10)
[2022-03-13 14:49] LABS: Color, Urine Yellow (Yellow); Glucose, Dipstick 50 mg/dl (Normal); Ketone-Dipstick Negative (Negative); Leukocyte Esterase-Dipstick 500 /ul (Negative); Nitrite-Dipstick Positive (Negative); Occult Blood-Urine 10 /ul (Negative); Protein-Dipstick 15 mg/dl (Negative); Specific Gravity, Urine 1.015 (1.002-1.030); Urine Bilirubin Dipstick Negative (Negative); Urine Clarity Cloudy (Clear); Urine Urobilinogen Normal (Normal)
[2022-03-13 14:55] LABS: Bacteria 2+ /hpf (None Seen); White Blood Cells 5-10 SEEN /hpf (0-5)
--- NOTE | 2022-03-13 15:15 | RAD_ITS ---
STUDY: X-RAY CHEST REASON FOR EXAM: Female, 31 years old. Fever, trach TECHNIQUE: Single AP portable view of the chest. COMPARISON: Comparison is made with prior study dated 02/24/2022. FINDINGS: EKG electrodes are seen. A tracheostomy tube is in situ. Stable elevation of the left hemidiaphragm. No definite infiltrate is seen. There is no demonstrated pleural abnormality. Normal size heart. Normal mediastinum and glenn. Normal visualized pulmonary arteries. Normal visualized aortic arch and descending thoracic aorta. There is a marked degree of dextroscoliosis of the thoracic spine. Abdomen fixation angelo is seen. Normal visualized ribs, clavicles, and shoulders. There is no demonstrated abnormality of the visualized soft tissue structures of the upper abdomen. RAD/Chest 1 View (Portable) IMPRESSION: Elevation of the left hemidiaphragm. No definite infiltrate is seen. Electronically Signed: Francisco Vogt MD at 15:35 EDT ,
[2022-03-13 15:16] LABS: Absolute Lymphocyte Count 0.77 X10^3/uL (0.83-4.51); Basophil# 0.03 X10^3/uL; Basophil% 0.2 % (0-1); Eosinophils% 0.7 % (0-5); Hematocrit 38.1 % (37-47); Hemoglobin 12.6 g/dL (12.0-15.0); Lymphocyte # 0.77 X10^3/ul (0.83-4.51); Lymphocyte % 5.8 % (19-41); Mean Corp Hgb Conc 33.1 g/dL (32-36); Mean Corpuscular Hgb 31.9 pg (27.0-32.0); Mean Corpuscular Volume 96.5 fL (81-99); Monocyte# 1.38 X10^3/uL; Monocyte% 10.3 % (0-10); NRBC Flagged by Analyzer 0 % (0-5); Neutrophil # 11.01 X10^3/uL (2.7-7.7); Neutrophil % 82.6 % (47-70); Platelet Count 236 K/mm3 (150-450); RBC Distribution Width CV 12.8 % (11.6-14.6); RBC Distribution Width SD 45.4 fl (35.1-43.9); Red Blood Count 3.95 M/mm3 (4.2-5.4); White Blood Count 13.4 K/mm3 (4.4-11.0)
[2022-03-13 15:32] LABS: BUN 20 mg/dL (7-18); Creatinine, Serum 0.39 mg/dL (0.55-1.02); Estimated Creatinine Clearance 189.72 ml/min; Glucose 166 mg/dL (74-106)
[2022-03-13 15:33] LABS: ALB/GLOB Ratio 0.9 RATIO (0.9-2.4); AST(SGOT) 9 U/L (15-37); Alanine Aminotransfer ALT/SGPT 20 U/L (13-56); Albumin, Serum 3.7 g/dL (3.2-5.0); Alkaline Phosphatase 83 U/L (45-117); Anion Gap 7 (5-15); Calcium,Total 9.5 mg/dL (8.5-10.1); Chloride 104 mmol/L (98-107); EST Glomerular Filtration Rate 201 mL/min (>60); Est Glom Filt Rate - Afr Amer 244 mL/min (>60); Globulin 4.3 g/dL (2.2-4.2); Potassium 3.5 mmol/L (3.5-5.1); Sodium Level 139 mmol/L (136-145)
[2022-03-13 15:45] LABS: Lactic Acid 1.8 mmol/L (0.4-1.9)
--- NOTE | 2022-03-13 17:22 | CT_ITS ---
STUDY: CT Abdomen And Pelvis W/O Contrast Injection 03/13/2022 6:05 PM REASON FOR EXAM: Female, 31 years old. ABDOMINAL PAIN fever, cdiff Technologist Notes patients mother is her plastic surgery coordinator. pt has cerebral palsy. has home trach vent on 3L. coccyx abscess worsening. mother states abscess is about the size of a pin hole. admitted recently to receive IV abx TECHNIQUE: Transaxial images were obtained without oral contrast, and without intravenous contrast. Individualized dose optimization techniques were used for this CT. COMPARISON: 12.12.21. FINDINGS: The visualized lung bases are unremarkable. The visualized portions of the heart are within normal limits. Normal liver. There is dilation of the common bile duct. A common bile duct stone is not seen. The CBD diameter is 7 mm. Normal spleen. Normal pancreas. Normal bilateral adrenal glands. Non obstructive 2 to 4 mm right renal parenchymal stones. Non obstructive 2 mm left renal parenchymal stones. There is a PEG tube in place. Normal small intestine. Stool throughout the colon. The appendix is visualized and appears normal. There are no acute findings of the abdominal aorta. Normal inferior vena cava. Subcentimeter mesenteric lymph nodes. Normal urinary bladder. 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 This is a stable finding. Along the right rectus muscle along the right abdominal wall there is stable soft tissue calcifications. There is a thin stable linear area of post surgical scar posteriorly in the soft tissue. There is no drainable abscess near the coccyx. There is a thoracolumbar spinal fixation hardware. There is dextroscoliosis of the lumbar spine. There is levoscoliosis of the thoracic spine. CT/Abdomen/Pelvis without Cont IMPRESSION: (NOT LISTED IN ORDER OF SIGNIFICANCE) There is dilation of the common bile duct. A common bile duct stone is not seen. The CBD diameter is 7 mm. There is a thin stable linear area of post surgical scar posteriorly in the soft tissue. There is no drainable abscess near the coccyx. Other findings as above. Electronically Signed: Sameer Bradshaw MD at 18:11 EDT ,
[2022-03-13] MEDS: 0.9% Normal Saline 1,000 ML 999 ML IV (19:56)
[2022-03-13] MEDS: Vancomycin 125 MG/5 ML Susp PO.SYRINGE PO (20:05)
== END 2022-03-13 21:01 | disposition home or self-care (01) ==
PROVIDERS: Emergency Provider Emergency Medicine; PCP Internal Medicine; Visit Provider Emergency Medicine
DX: A04.72 Enterocolitis due to Clostridium difficile, not specified as recurrent (principal); Z99.11 Dependence on respirator [ventilator] status; G80.9 Cerebral palsy, unspecified; E11.9 Type 2 diabetes mellitus without complications; Z79.4 Long term (current) use of insulin; R00.0 Tachycardia, unspecified; E55.9 Vitamin D deficiency, unspecified; Z79.899 Other long term (current) drug therapy; Z99.81 Dependence on supplemental oxygen
CPT/HCPCS: 51701; 71045; 74176; 80053; 81001; 83605; 85025; 87040; 87086; 87088; 87186; 87493; 93005; 96360; 96361; 99285; J7030; J7040; P9612; A4216

== ENCOUNTER 2022-03-31 12:22 | Emergency (ER) | payer MEDICAID, SELFPAY ==
[2022-03-31 12:23] VITALS: BP 131/88; PULSE 102; RESP 18; TEMP 37.2; O2SAT 100; BMI 27.3
--- NOTE | 2022-03-31 12:32 | EDS_ITS ---
HPI History of Present Illness Chief Complaint: General Illness Detail of Chief Complaint: Somnolence and elevated blood sugar Informant: patient and parent Onset/Context/Timing Onset: Weeks (Onset February 18) Context: Sudden Onset Timing: Continuous (Constant per mother.) Quality: Blood sugar high for patient. No reading greater than 300 Location: Endocrine Current Severity: Mild Maximum Severity: Mild Worsened by: Patient with pseudomembranous enterocolitis Relieved by: Nothing Associated Symptoms Associated Symptoms: Decreased awareness per mother Narrative Narrative: Patient is a 32-year-old vent dependent nonambulatory woman who presents with decreased level of consciousness/awareness and elevated blood sugar readings. She was admitted February 18 for gluteal abscess requiring IV antibiotics. She was discharged to home. She was readmitted and had a 6-day stay from February 24 to March 02. She subsequently developed pseudomembranous enterocolitis. She initially was treated with vancomycin. She is presently on a antibiotic that the [facility] infectious disease knowledge management consultant prescribed for her. Mother is concerned because blood sugars have been running from 162 mid/upper 200s. Mother's other concern is decreased responsiveness. Mother informed me that she is able to answer yes/no questions by smiling for yes and rolling her lower lip for now. Patient does complain of head pain. She does not Mitt shortness of breath. She denies abdominal pain. She denies chest pain. Prior similar symptoms: No Recent Illness/Hospitalization: Yes [facility] Medical History Allergic rhinitis due to other allergen Amenorrhea Bedbound Bladder disease Bronchiectasis without acute exacerbation Bronchitis Cerebral palsy Chronic respiratory failure Diabetes Dietary restriction History of Clostridium difficile infection History of renal disease Hyperglycemia Irregular menstrual cycle Kidney stones Lactic acid acidosis Mild mental retardation MRSA infection Neuromuscular scoliosis Non-smoker On home oxygen therapy On tube feeding diet Pancreatitis Paraplegia PICC (peripherally inserted central catheter) in place Pneumonia Recurrent UTI Redness of skin Renal calculi Renal calculus or stone Respiratory acidosis Seizure Seizures Severe sepsis Skin tag of vaginal mucosa 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 Thrush Urinary tract infection due to extended-spectrum beta lactamase (ESBL) producing Escherichia coli Ventilator dependent Visual disturbance Vitamin D deficiency Home Medications baclofen 20 mg tablet 30 mg G-tube TID muscle spasms 09/02/13 [History Last Taken 02/24/22] oxcarbazepine 300 mg/5 mL (60 mg/mL) oral suspension (Trileptal) 8 ml G-tube BID seizure 08/28/17 [History Last Taken 02/24/22] ferrous sulfate 15 mg iron (75 mg)/mL oral syringe (ORAL USE) 5 ml feeding tube QODAY supplement 02/28/21 [History Last Taken 02/24/22] diazepam 5 mg/5 mL (1 mg/mL) oral solution 5 mg feeding tube DAILY@1400 spasms 05/20/21 [History Last Taken 02/24/22] diazepam 5 mg/5 mL (1 mg/mL) oral solution 7 mg feeding tube BID spasms 05/20/21 [History Last Taken 02/24/22] methenamine hippurate 1 gram tablet (Hiprex) 1 g feeding tube BID infection prevention 05/20/21 [History Last Taken 02/24/22] docusate sodium 60 mg/15 mL oral syrup 60 mg feeding tube DAILY stool softener 07/21/21 [History Last Taken 2 Weeks Ago ~02/10/22] guaifenesin 100 mg/5 mL oral liquid 200 mg (10 mL) G-tube Q4H PRN PRN thick secretions #1,000 mL 09/25/21 [Rx Last Taken 02/23/22] ascorbic acid (vitamin C) 500 mg/5 mL oral syrup 500 mg feeding tube BID SUPPLEMENT 12/12/21 [History Last Taken 02/24/22] cholecalciferol (vitamin D3) 50 mcg (2,000 unit) capsule 50 mcg feeding tube DAILY SUPPLEMENT 12/12/21 [History Last Taken 02/24/22] diphenhydramine HCl 12.5 mg/5 mL oral liquid (Benadryl Allergy) 12.5 mg feeding tube DAILY PRN allergies 12/12/21 [History Last Taken Unknown] ibuprofen 100 mg/5 mL oral suspension 400 mg PO Q6H PRN Pain 12/12/21 [History Last Taken 02/24/22] miconazole nitrate 2 % vaginal cream (Monistat 7) 1 appful vaginal DAILY PRN YEAST 12/12/21 [History Last Taken 1 Week Ago ~02/17/22] multivitamin-folic acid-herbal no.275 400 mcg-200 mg/30 mL oral liquid 5 ml PO DAILY SUPPLEMENT 12/12/21 [History Last Taken 02/23/22] nystatin 100,000 unit/gram topical powder (Nystop) 1 applic topical TID PRN Skin Cleansing 12/12/21 [History Last Taken 02/24/22] phenazopyridine 200 mg tablet (Pyridium) 200 mg feeding tube TID PRN Bladder Spasms 12/12/21 [History Last Taken 12/11/21] sodium chloride 0.9 % for nebulization 3 - 6 ml inhalation Q2H PRN Congestion 12/12/21 [History Last Taken 02/23/22] blood sugar diagnostic (True Metrix Pro Test Strip) #400 ea 01/05/22 [Rx Last Taken Unknown] lancets 33 gauge (BD Ultra Fine Lancets) #100 ea 01/05/22 [Rx Last Taken Unknown] pen needle, diabetic 32 gauge x 5/32 (BD Ultra-Fine Priyanka Pen Needle) #360 ea 01/05/22 [Rx Last Taken Unknown] levalbuterol HCl 1.25 mg/3 mL solution for nebulization 1.25 mg (3 mL) inhalation BID BREATHING #90 mL 01/16/22 [Rx Last Taken 02/23/22] cetirizine 1 mg/mL oral solution (Children's Zyrtec Allergy) 10 mg (10 mL) f eeding tube DAILY PRN ALLERGIES #480 mL 01/28/22 [Rx Last Taken 02/24/22] hydrocortisone 1 % topical cream 1 applic topical TID PRN Rash 02/24/22 [History Last Taken Unknown] levalbuterol HCl 1.25 mg/3 mL solution for nebulization (Xopenex) 1.25 mg inhalation Q4H PRN sob 02/24/22 [History Last Taken 02/23/22] naphazoline 0.012 % eye drops 2 drp ophthalmic (eye) DAILY PRN allergies 02/24/22 [History Last Taken 02/23/22] montelukast 10 mg tablet 10 mg G-tube QPM #0 tabs 03/02/22 [Rx Last Taken Unknown] lancets 30 gauge (Embrace Lancets) #100 ea 03/12/22 [Rx Last Taken Unknown] acetaminophen 160 mg/5 mL oral liquid 640 mg PO Q6H PRN pain/fever 03/31/22 [History Last Taken Unknown] acetaminophen 500 mg-pamabrom 25 mg-pyrilamine 15 mg tablet 2 tab feeding tube Q6H PRN Menstrual Pain 03/31/22 [History Last Taken Unknown] tqwmlmnerhdun-zqgjzmdy-lxiucjlaba 500 mg-60 mg-15 mg tablet (Midol Complete) 2 tab feeding tube Q6H PRN Menstrual Pain 03/31/22 [History Last Taken Unknown] acidophilus 25 million cell-pectin, citrus 100 mg tablet 1 tab G-tube DAILY supplement 03/31/22 [History Last Taken Unknown] atropine 0.01 % eye drop emulsion 1 ea ophthalmic (eye) BID PRN PRN increased secretions 03/31/22 [History Last Taken Unknown] bacitracin 500 unit/gram topical packet 1 applic topical 4X/DAY PRN PRN scratches 03/31/22 [History Last Taken Unknown] bismuth subsalicylate 262 mg/15 mL oral suspension (Pepto-Bismol) 524 mg PO Q30M PRN antidiarrheal 03/31/22 [History Last Taken Unknown] carbamide peroxide 6.5 % ear drops (Debrox) 5 drp EACH EAR DAILY PRN Ear Wax 03/31/22 [History Last Taken Unknown] fexofenadine 30 mg/5 mL oral suspension 60 mg PO BID PRN allergies 03/31/22 [History Last Taken Unknown] fluconazole 10 mg/mL oral suspension 150 mg feeding tube PRN PRN yeast 03/31/22 [History Last Taken Unknown] fluticasone propionate 44 mcg/actuation HFA aerosol inhaler (Flovent HFA) 2 puff inhalation BID 03/31/22 [History Last Taken Unknown] fosfomycin tromethamine 3 gram oral packet 1 packet feeding tube 3XD 03/31/22 [History Last Taken Unknown] insulin aspart U-100 100 unit/mL (3 mL) subcutaneous pen 7 unit subcut TID Diabetes 03/31/22 [History Last Taken Unknown] insulin aspart U-100 100 unit/mL (3 mL) subcutaneous pen (Novolog Flexpen U-100 Insulin aspart) 0 unit subcut 4X/DAY 03/31/22 [History Last Taken Unknown] magnesium citrate 10 - 60 ml feeding tube BID PRN Constipation 03/31/22 [History Last Taken Unknown] magnesium hydroxide 400 mg/5 mL oral suspension (Milk of Magnesia) 15 - 60 ml PO DAILY PRN Constipation 03/31/22 [History Last Taken Unknown] nitrofurantoin monohydrate/macrocrystals 100 mg capsule 100 mg PO Q12 #14 CAPSULES 03/31/22 [Rx Last Taken Unknown] nystatin 100,000 unit/gram topical powder 1 applic topical BID PRN redness 03/31/22 [History Last Taken Unknown] sennosides 8.6 mg tablet 17.2 mg feeding tube BID PRN Constipation 03/31/22 [History Last Taken Unknown] Allergy/AdvReac Type Severity Reaction Status Date / Time linezolid Allergy Severe Other - Verified 03/31/22 13:16 seizure & coma vancomycin Allergy Severe Other - Verified 03/31/22 13:16 kidney failure tobramycin Allergy Intermediate Other - Verified 03/31/22 13:16 turned beet red nafcillin Allergy Mild Rash Verified 03/31/22 13:16 benzoin Allergy Unknown Rash Verified 03/31/22 13:16 milk Allergy Unknown Other Verified 03/31/22 13:16 soy Allergy Unknown Other Verified 03/31/22 13:16 polyethylene glycol 3350 AdvReac Unknown Hives Verified 03/31/22 13:16 [From Miralax] Family History Grandmother Cancer maternal Other Adopted Surgical History derotatox ostomies eyes straightened Gastrostomy tube in place H/O spinal fusion Presence of intrathecal baclofen pump rods to back Status post Jorje fundoplication surgery on gland under tongue tendonatomies Tracheostomy status Social History household members: other details: Mother and is vent dependent housing: house Smoking Status: Never smoker second hand exposure: No alcohol intake: never substance use type: does not use ROS ROS ED Review of Systems ROS Unobtainable: due to mental status and other Details: Previously described in the HPI narrative EXAM Physical Exam Const Vital Signs: 03/31/22 12:23 03/31/22 12:59 03/31/22 14:00 Temperature 99 F 99.0 F 98.2 F Temperature Source Axillary Axillary Axillary Pulse Rate 102 H 93 97 Respiratory Rate 18 18 16 Blood Pressure 131/88 H 117/85 H 120/84 H Blood Pressure Mean 102 95 96 Pulse Ox 100 100 99 Oxygen Delivery Method Mechanical Ventilator Mechanical Ventilator Mechanical Ventilator Oxygen Flow Rate (L/min) 3 3 Positive well nourished and well developed General Appearance ED: well developed, NAD and pallor; Negative for cyanotic or diaphoretic HEENT Reports moist mucous membranes HEENT Narrative: Nares patent. Ears normal. Uvula midline. No erythema or exudate of the posterior pharynx. Eyes PERRL and EOMs intact bilaterally General Eye ED: Negative for pale conjunctiva or scleral icterus Neck no lymphadenopathy and no JVD Chest Wall inspection of chest normal and palpation of chest normal Chest Narrative: There is no crepitus or subcutaneous air. Resp normal respiratory effort and clear to auscultation bilaterally Cardio regular rhythm, S1 normal heart sound, S2 normal heart sound and no murmurs Rate: tachycardic GI normal to inspection, nondistended, normoactive bowel sounds, non-tender and non-distended; Negative for hepatosplenomegaly GI Narrative: Patient has areas of excoriation redness involving the perineum and perianal anal area. There is no evidence of decubitus ulcer. Narrative: External genitalia appear normal. Back/Spine no CVA tenderness Extremity Negative for normal to inspection General Extremety ED: Negative for tenderness Neuro No CN's II-XII intact bilaterally and No no sensory deficits noted Neuro Narrative: Patient has nystagmus and rolling eyes. She is able to interact. She does answer yes and no questions appropriately. Motor Exam: Negative for strength 5/5 throughout Psych Psych Narrative: Difficult to assess Skin No no rashes or lesions noted, No no wounds and skin turgor normal General Skin Exam: pallor; Negative for jaundice Lesions: lesion noted MDM MDM MDM Narrative Medical decision making narrative: With complaint of shortness of breath decreased responsive need to evaluate for metabolic, infectious versus pulmonary cause. Will obtain chest x-ray, blood work, Owens was placed since mother is cathing her 3 times a day per urology request. Since there is breakdown of skin will have nurse place Owens and obtain UA. Urine culture was sent. Since patient is presently on antibiotic for Pseu domonas enterocolitis we will treat with Macrobid. First dose of Macrobid was given in the emergency department. Dr. Rafa Bettencourt who is following patient was paged. Dr. Rafa Bettencourt did call back. Agrees with treatment plan. He will follow-up results of urine culture. Lab Data Attestation: I reviewed the patient's lab results. Lab results narrative: Dialysis Labs: Laboratory Results - last 24 hr 03/31/22 03/31/22 03/31/22 12:33 13:00 13:00 WBC 11.6 H RBC 3.85 L Hgb 12.3 Hct 37.4 MCV 97.1 MCH 31.9 MCHC 32.9 RDW Std Deviation 45.7 H RDW Coeff of Anne 12.9 Plt Count 303 MPV 10.4 Immature Gran % (Auto) 0.400 Neut % (Auto) 76.7 H Lymph % (Auto) 11.5 L George % (Auto) 8.6 Eos % (Auto) 2.5 Baso % (Auto) 0.3 Absolute Neuts (auto) 8.9 H Absolute Lymphs (auto) 1.33 Nucleated RBC % 0 Sodium 139 Potassium 4.1 Chloride 104 Carbon Dioxide 29.0 Anion Gap 6 BUN 23 H Creatinine 0.52 L Estim Creat Clear Calc 126.27 Est GFR (MDRD) Af Amer 175 Est GFR (MDRD) Non-Af 145 BUN/Creatinine Ratio 44.1 H Glucose 202 H Calcium 9.4 Urine Color Urine Clarity Urine pH Ur Specific [place] Urine Protein Urine Glucose (UA) Urine Ketones Urine Occult Blood Urine Nitrite Urine Bilirubin Urine Urobilinogen Ur Leukocyte Esterase Urine RBC Urine WBC Ur Squamous Epith Cells Urine Bacteria Urine Mucus POC Glucose 197 H 03/31/22 13:00 WBC RBC Hgb Hct MCV MCH MCHC RDW Std Deviation RDW Coeff of Anne Plt Count MPV Immature Gran % (Auto) Neut % (Auto) Lymph % (Auto) George % (Auto) Eos % (Auto) Baso % (Auto) Absolute Neuts (auto) Absolute Lymphs (auto) Nucleated RBC % Sodium Potassium Chloride Carbon Dioxide Anion Gap BUN Creatinine Estim Creat Clear Calc Est GFR (MDRD) Af Amer Est GFR (MDRD) Non-Af BUN/Creatinine Ratio Glucose Calcium Urine Color Yellow Urine Clarity Cloudy Urine pH 8.0 Ur Specific [place] 1.015 Urine Protein 15 H Urine Glucose (UA) Normal Urine Ketones 5 H Urine Occult Blood 250 H Urine Nitrite Negative Urine Bilirubin Negative Urine Urobilinogen Normal Ur Leukocyte Esterase 100 H Urine RBC 50-100 SEEN Urine WBC 5-10 SEEN Ur Squamous Epith Cells 5-10 SEEN Urine Bacteria 4+ Urine Mucus RARE POC Glucose ABG Data ABG results: ABG 03/31/22 13:24 Specimen Type ART Sample Site R Radial pH 7.44 Bicarbonate Actual 27.4 H Total CO2 29 Base Excess 3 H O2 Saturation 94 L ABG pCO2 40.2 ABG pO2 70 L Tito Test Positive O2 Delivery Device Adult Vent Clinical Comments Home Vent. Radiography Chest X-Ray - ED: 1 View (Mckeon angelo noted. Patient is rotated. There is limited inspiratory volume. There is no obvious infiltrate. Cardiac silhouette is unremarkable. Cardiac size appears normal. Mediastinum is unremarkable. There is no acute abnormalities noted of the osseous structures. This was independently) Diagnostic Testing: Clinical Impression(s) from Imaging Studies Chest X-Ray 03/31/22 13:05 IMPRESSION: Stable elevation of the left hemidiaphragm with mild increased markings at the left lung base suggestive of atelectasis Electronically Signed: Francisco Vogt MD at 13:24 EDT , Discharge Plan Triage Chief Complaint: General Illness ED Provider: Stephan Hughes Dx/Rx/DC Orders Clinical Impression: UTI (urinary tract infection), Leukocytosis, Altered mental status Prescriptions: New nitrofurantoin monohyd/m-cryst [nitrofurantoin monohyd/m-cryst] 100 mg capsule 100 mg PO Q12 Qty: 14 0RF No Action oxcarbazepine [Trileptal] 300 mg/5 mL (60 mg/mL) suspension 8 ml GT BID guaifenesin 100 mg/5 mL liquid 200 mg GT Q4H PRN PRN (Reason: thick secretions) Qty: 1000 3RF (DME) pen needle, diabetic [BD Ultra-Fine Priyanka Pen Needle] 32 gauge x 5/32 needle See Rx Instructions .ROUTE .MEDSUPPLY Qty: 360 3RF Rx Instructions: 4 times daily (DME) True Metrix Pro Test Strip Strip See Rx Instructions .ROUTE .MEDSUPPLY Qty: 400 3RF Rx Instructions: 4 times daily, plus extra for mental status change (DME) lancets [BD Ultra Fine Lancets] 33 gauge misc See Rx Instructions .ROUTE .MEDSUPPLY Qty: 100 0RF Rx Instructions: 4 times daily baclofen 20 MG tablet 30 mg GT TID Label Comments: pain ferrous sulfate 15 mg iron (75 mg)/mL Syringe 5 ml feeding tube QODAY diazepam 5 mg/5 mL (1 mg/mL) Solution 7 mg feeding tube BID diazepam 5 mg/5 mL (1 mg/mL) Solution 5 mg feeding tube DAILY@1400 methenamine hippurate [Hiprex] 1 gram Tablet 1 g feeding tube BID docusate sodium 60 mg/15 mL Syrup 60 mg feeding tube DAILY diphenhydramine HCl [Benadryl Allergy] 12.5 mg/5 mL Liquid 12.5 mg feeding tube DAILY PRN (Reason: allergies) miconazole nitrate [Monistat 7] 2 % Cream 1 appful VAGINAL DAILY PRN (Reason: YEAST) phenazopyridine [Pyridium] 200 mg Tablet 200 mg feeding tube TID PRN (Reason: Bladder Spasms) nystatin [Nystop] 100,000 unit/gram Powder 1 applic TOPICAL TID PRN (Reason: Skin Cleansing) ibuprofen 100 mg/5 mL Suspension 400 mg PO Q6H PRN (Reason: Pain) sodium chloride 0.9 % Solution For Nebulization 3 - 6 ml INHALATION Q2H PRN (Reason: Congestion) ascorbic acid (vitamin C) 500 mg/5 mL Syrup 500 mg feeding tube BID cholecalciferol (vitamin D3) 50 mcg (2,000 unit) Capsule 50 mcg feeding tube DAILY multivit-folic acid-herbal 275 400 mcg-200 mg/30 mL Liquid 5 ml PO DAILY levalbuterol HCl [Xopenex] 1.25 mg/3 mL Solution For Nebulization 1.25 mg INHALATION Q4H PRN (Reason: sob) hydrocortisone 1 % Cream 1 applic TOPICAL TID PRN (Reason: Rash) naphazoline 0.012 % Drops 2 drp OPHTHALMIC (EYE) DAILY PRN (Reason: allergies) montelukast 10 mg Tablet 10 mg G-tube QPM Qty: 0 0RF sennosides 8.6 mg Tablet 17.2 mg feeding tube BID PRN (Reason: Constipation) acetaminophen 160 mg/5 mL Liquid 640 mg PO Q6H PRN (Reason: pain/fever) fosfomycin tromethamine 3 gram Packet 1 packet feeding tube 3XD Midol Complete 500-60-15 mg Tablet 2 tab feeding tube Q6H PRN (Reason: Menstrual Pain) Pamprin Multi-Symptom 500-25-15 mg Tablet 2 tab feeding tube Q6H PRN (Reason: Menstrual Pain) magnesium hydroxide [Milk of Magnesia] 400 mg/5 mL Suspension 15 - 60 ml PO DAILY PRN (Reason: Constipation) fluconazole 10 mg/mL Suspension For Reconstitution 150 mg feeding tube PRN PRN (Reason: yeast) bismuth subsalicylate [Pepto-Bismol] 262 mg/15 mL Suspension 524 mg PO Q30M PRN (Reason: antidiarrheal) Rx Instructions: do not exceed 8 doses in a 24 hour period fluticasone propionate [Flovent HFA] 44 mcg/actuation Hfa Aerosol Inhaler 2 puff INHALATION BID Rx Instructions: administer with spacer Debrox 6.5 % Drops 5 drp EACH EAR DAILY PRN (Reason: Ear Wax) magnesium citrate Solution 10 - 60 ml feeding tube BID PRN (Reason: Constipation) nystatin 100,000 unit/gram Powder 1 applic TOPICAL BID PRN (Reason: redness) insulin aspart U-100 [Novolog Flexpen U-100 Insulin] 100 unit/mL (3 mL) Insulin Pen 0 unit SUBCUT 4X/DAY Rx Instructions: sliding scale bacitracin 500 unit/gram Packet 1 applic TOPICAL 4X/DAY PRN PRN (Reason: scratches) fexofenadine 30 mg/5 mL Suspension 60 mg PO BID PRN (Reason: allergies) atropine 0.01 % Drops, Emulsion 1 ea OPHTHALMIC (EYE) BID PRN PRN (Reason: increased secretions) insulin aspart U-100 100 unit/mL (3 mL) insulin pen 7 unit subcut TID MDD 48 Rx Instructions: plus sliding scale 180 +1; 211 + 2; 241 +3; 270 + 4 units acidophilus-pectin, citrus 25 million cell -100 mg tablet 1 tab G-tube DAILY Rx Instructions: [place]-wqa-ajxisvk levalbuterol HCl 1.25 mg/3 mL solution for nebulization 1.25 mg INHALATION BID Qty: 90 5RF cetirizine [Children's Zyrtec Allergy] 1 mg/mL solution 10 mg feeding tube DAILY PRN (Reason: ALLERGIES) Qty: 480 6RF (DME) lancets [Embrace Lancets] 30 gauge misc See Rx Instructions .Route Qty: 100 3RF Rx Instructions: As directed Primary Care Provider: Sandra Bermudez Referrals: Sandra Bermudez DO [Primary Care Provider] - Disposition Disposition: Home, Self Care
[2022-03-31 12:56] LABS: Bedside Glucose 197 mg/dL (74-106)
[2022-03-31 12:59] VITALS: BP 117/85; PULSE 93; RESP 18; TEMP 37.2; O2SAT 100
--- NOTE | 2022-03-31 13:05 | RAD_ITS ---
STUDY: X-RAY CHEST REASON FOR EXAM: Female, 32 years old. Dyspnea TECHNIQUE: Single AP portable view of the chest. COMPARISON: Comparison is made with prior study dated 03/13/2022. FINDINGS: A tracheostomy tube is in situ. EKG electrodes are seen. Stable elevation of the left hemidiaphragm. Mild degree of increased markings at the left lung base suggestive of atelectasis. Normal size heart. Normal mediastinum and glenn. Normal visualized pulmonary arteries. Normal visualized aortic arch and descending thoracic aorta. There is a marked dextroscoliosis of the thoracic spine. Prior angelo fixation of the scoliosis. Normal visualized ribs, clavicles, and shoulders. There is no demonstrated abnormality of the visualized soft tissue structures of the upper abdomen. RAD/Chest 1 View (Portable) IMPRESSION: Stable elevation of the left hemidiaphragm with mild increased markings at the left lung base suggestive of atelectasis Electronically Signed: Francisco Vogt MD at 13:24 EDT ,
[2022-03-31 13:16] LABS: Absolute Lymphocyte Count 1.33 X10^3/uL (0.83-4.51); Absolute Neutrophil Count 8.9 X10^3/uL (2.0-7.7); Basophil# 0.04 X10^3/uL; Basophil% 0.3 % (0-1); Color, Urine Yellow (Yellow); Eosinophil# 0.29 X10^3/uL; Eosinophils% 2.5 % (0-5); Glucose, Dipstick Normal (Normal); Hematocrit 37.4 % (37-47); Hemoglobin 12.3 g/dL (12.0-15.0); Ketone-Dipstick 5 mg/dl (Negative); Leukocyte Esterase-Dipstick 100 /ul (Negative); Lymphocyte # 1.33 X10^3/ul (0.83-4.51); Lymphocyte % 11.5 % (19-41); Mean Corp Hgb Conc 32.9 g/dL (32-36); Mean Corpuscular Hgb 31.9 pg (27.0-32.0); Mean Corpuscular Volume 97.1 fL (81-99); Mean Platelet Vol. 10.4 fl (6.2-12.0); Monocyte# 0.99 X10^3/uL; Monocyte% 8.6 % (0-10); NRBC Flagged by Analyzer 0 % (0-5); Neutrophil # 8.85 X10^3/uL (2.7-7.7); Neutrophil % 76.7 % (47-70); Nitrite-Dipstick Negative (Negative); Occult Blood-Urine 250 /ul (Negative); Platelet Count 303 K/mm3 (150-450); Protein-Dipstick 15 mg/dl (Negative); RBC Distribution Width CV 12.9 % (11.6-14.6); RBC Distribution Width SD 45.7 fl (35.1-43.9); Red Blood Count 3.85 M/mm3 (4.2-5.4); Specific Gravity, Urine 1.015 (1.002-1.030); Urine Bilirubin Dipstick Negative (Negative); Urine Clarity Cloudy (Clear); Urine Urobilinogen Normal (Normal); White Blood Count 11.6 K/mm3 (4.4-11.0)
[2022-03-31 13:26] LABS: Bacteria 4+ /hpf (None Seen); Mucous, Urine RARE /hpf (<or=2+); Red Blood Cells-Urine 50-100 SEEN /hpf (0-5); Squamous Epithelial Cells - UA 5-10 SEEN /hpf (5-10); White Blood Cells 5-10 SEEN /hpf (0-5)
[2022-03-31 13:28] LABS: Anion Gap 6 (5-15); BUN 23 mg/dL (7-18); BUN/Creat Ratio 44.1 RATIO (10-20); Calcium,Total 9.4 mg/dL (8.5-10.1); Chloride 104 mmol/L (98-107); Creatinine, Serum 0.52 mg/dL (0.55-1.02); EST Glomerular Filtration Rate 145 mL/min (>60); Est Glom Filt Rate - Afr Amer 175 mL/min (>60); Estimated Creatinine Clearance 126.27 ml/min; Glucose 202 mg/dL (74-106); Potassium 4.1 mmol/L (3.5-5.1); Sodium Level 139 mmol/L (136-145)
[2022-03-31 13:30] LABS: Allen Test Positive; Base Excess 3 mmol/L (-2 to +2); Bicarbonate 27.4 mmol/L (22-26); Blood Gas Specimen Type ART; O2 Delivery Device Adult Vent; PO2 70 mmHG (75-100); SITE R Radial; SO2 94 % (95-99); Total Carbon Dioxide 29 mmol/L; pCO2 40.2 mmHg (35-45); pH 7.44 (7.35-7.45)
--- NOTE | 2022-03-31 13:53 | ED.RN ---
Leonardo held via Dr. Hughes. Sent back to pharmacy by Duane MARADIAGA.
[2022-03-31 14:00] VITALS: BP 120/84; PULSE 97; RESP 16; TEMP 36.8; O2SAT 99
[2022-03-31] MEDS: Nitrofurantoin Macrocrystals 100 MG Capsule GT (14:27)
--- NOTE | 2022-03-31 14:54 | NURSING ---
CALLED [facility], ETA IS 90 MIN
[2022-03-31 15:04] VITALS: BP 117/74; PULSE 88; RESP 17; O2SAT 100
== END 2022-03-31 16:18 | disposition home or self-care (01) ==
PROVIDERS: Emergency Provider Emergency Medicine; PCP Internal Medicine; Visit Provider Emergency Medicine
DX: N39.0 Urinary tract infection, site not specified (principal); E11.65 Type 2 diabetes mellitus with hyperglycemia; Z79.4 Long term (current) use of insulin; A04.72 Enterocolitis due to Clostridium difficile, not specified as recurrent; R41.82 Altered mental status, unspecified; R06.02 Shortness of breath; Z79.899 Other long term (current) drug therapy
CPT/HCPCS: 36600; 51702; 71045; 80048; 81001; 82803; 82962; 85025; 87086; 87088; 87186; 99285; A4216

== ENCOUNTER → 2022-04-07 | Outpatient (CLI) | payer MEDICAID, SELFPAY | END | disposition home or self-care (01) | PROVIDERS: PCP Internal Medicine; Visit Provider Internal Medicine | DX: A04.72 Enterocolitis due to Clostridium difficile, not specified as recurrent (principal) | CPT/HCPCS: 87493 ==

== ENCOUNTER → 2022-04-14 | Outpatient (CLI) | payer MEDICAID, SELFPAY | END | disposition home or self-care (01) | LOC: LAB 09:09 | PROVIDERS: PCP Internal Medicine; Visit Provider Internal Medicine Infectious Disease | DX: R19.7 Diarrhea, unspecified (principal) | CPT/HCPCS: 82274; 87506 ==

== ENCOUNTER → 2022-05-19 | Outpatient (CLI) | payer MEDICAID, SELFPAY | END | disposition home or self-care (01) | LOC: LAB.FUTURE 08:47 → LABSPEC 08:53 | PROVIDERS: PCP Internal Medicine; Visit Provider Internal Medicine Infectious Disease | DX: S31.829A Unspecified open wound of left buttock, initial encounter (principal); N39.0 Urinary tract infection, site not specified | CPT/HCPCS: 87070; 87077; 87086; 87088; 87186; 87205 ==

== ENCOUNTER 2022-06-02 13:11 | Emergency (ER) | payer MEDICAID, SELFPAY ==
[2022-06-02] VITALS (7 sets, daily range): BP systolic 116–136; BP diastolic 80–102; PULSE 77–105; RESP 13–19; TEMP 36.1–37.1; O2SAT 94–100; BMI 25.3
[2022-06-02 15:35] LABS: Absolute Lymphocyte Count 1.38 X10^3/uL (0.83-4.51); Absolute Neutrophil Count 7.9 X10^3/uL (2.0-7.7); Basophil# 0.04 X10^3/uL; Basophil% 0.4 % (0-1); Eosinophil# 0.17 X10^3/uL; Eosinophils% 1.6 % (0-5); Hematocrit 37.2 % (37-47); Hemoglobin 12.5 g/dL (12.0-15.0); Lymphocyte # 1.38 X10^3/ul (0.83-4.51); Lymphocyte % 13.3 % (19-41); Mean Corp Hgb Conc 33.6 g/dL (32-36); Mean Corpuscular Hgb 31.7 pg (27.0-32.0); Mean Corpuscular Volume 94.4 fL (81-99); Mean Platelet Vol. 10.4 fl (6.2-12.0); Monocyte# 0.85 X10^3/uL; Monocyte% 8.2 % (0-10); NRBC Flagged by Analyzer 0 % (0-5); Neutrophil # 7.88 X10^3/uL (2.7-7.7); Neutrophil % 75.7 % (47-70); Platelet Count 246 K/mm3 (150-450); RBC Distribution Width SD 41.6 fl (35.1-43.9); Red Blood Count 3.94 M/mm3 (4.2-5.4); White Blood Count 10.4 K/mm3 (4.4-11.0)
[2022-06-02 15:51] LABS: AST(SGOT) 11 U/L (15-37); Alanine Aminotransfer ALT/SGPT 22 U/L (13-56); Albumin, Serum 3.9 g/dL (3.2-5.0); Alkaline Phosphatase 73 U/L (45-117); Anion Gap 9 (5-15); BUN 14 mg/dL (7-18); Calcium,Total 9.5 mg/dL (8.5-10.1); Chloride 100 mmol/L (98-107); Creatinine, Serum 0.45 mg/dL (0.55-1.02); EST Glomerular Filtration Rate 171 mL/min (>60); Est Glom Filt Rate - Afr Amer 207 mL/min (>60); Estimated Creatinine Clearance 140.09 ml/min; Glucose 184 mg/dL (74-106); Potassium 3.9 mmol/L (3.5-5.1); Protein, Total 7.9 g/dL (6.4-8.2); Sodium Level 138 mmol/L (136-145)
--- NOTE | 2022-06-02 15:59 | EDS_ITS ---
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 The patient was supposed to get a PICC line placed yesterday for drug-resistant E. coli in the urine. She follows with Dr. Bettencourt for infectious disease and was supposed to start ertapenem. Mom states that she called 20 transport agencies yesterday and nobody could take her. She called ID today who recommended she come to emergency. Mom notes intermittent fevers. Last fever yesterday was 100. Mom notes urine output has been normal. Bowel movements have been normal. Tube feeds have been going well. She has not had difficulty with the vent. [facility] Medical History Allergic rhinitis due to other allergen Amenorrhea Bedbound Bladder disease Bronchiectasis without acute exacerbation Bronchitis Cerebral palsy Chronic respiratory failure Diabetes Dietary restriction History of Clostridium difficile infection History of renal disease Hyperglycemia Irregular menstrual cycle Kidney stones Lactic acid acidosis Mild mental retardation MRSA infection Neuromuscular scoliosis Non-smoker On home oxygen therapy On tube feeding diet Pancreatitis Paraplegia PICC (peripherally inserted central catheter) in place Pneumonia Recurrent UTI Redness of skin Renal calculi Renal calculus or stone Respiratory acidosis Seizure Seizures Severe sepsis Skin tag of vaginal mucosa 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 Thrush Urinary tract infection due to extended-spectrum beta lactamase (ESBL) producing Escherichia coli Ventilator dependent Visual disturbance Vitamin D deficiency Home Medications baclofen 20 mg tablet 30 mg G-tube TID muscle spasms 09/02/13 [History Last Taken 02/24/22] oxcarbazepine 300 mg/5 mL (60 mg/mL) oral suspension (Trileptal) 8 ml G-tube BID seizure 08/28/17 [History Last Taken 02/24/22] ferrous sulfate 15 mg iron (75 mg)/mL oral syringe (ORAL USE) 5 ml feeding tube QODAY supplement 02/28/21 [History Last Taken 02/24/22] diazepam 5 mg/5 mL (1 mg/mL) oral solution 5 mg feeding tube DAILY@1400 spasms 05/20/21 [History Last Taken 02/24/22] diazepam 5 mg/5 mL (1 mg/mL) oral solution 7 mg feeding tube BID spasms 05/20/21 [History Last Taken 02/24/22] methenamine hippurate 1 gram tablet (Hiprex) 1 g feeding tube BID infection p revention 05/20/21 [History Last Taken 02/24/22] docusate sodium 60 mg/15 mL oral syrup 60 mg feeding tube DAILY stool softener 07/21/21 [History Last Taken 2 Weeks Ago ~02/10/22] guaifenesin 100 mg/5 mL oral liquid 200 mg (10 mL) G-tube Q4H PRN PRN thick secretions #1,000 mL 09/25/21 [Rx Last Taken 02/23/22] ascorbic acid (vitamin C) 500 mg/5 mL oral syrup 500 mg feeding tube BID SUPPLEMENT 12/12/21 [History Last Taken 02/24/22] cholecalciferol (vitamin D3) 50 mcg (2,000 unit) capsule 50 mcg feeding tube DAILY SUPPLEMENT 12/12/21 [History Last Taken 02/24/22] diphenhydramine HCl 12.5 mg/5 mL oral liquid (Benadryl Allergy) 12.5 mg feeding tube DAILY PRN allergies 12/12/21 [History Last Taken Unknown] ibuprofen 100 mg/5 mL oral suspension 400 mg PO Q6H PRN Pain 12/12/21 [History Last Taken 02/24/22] miconazole nitrate 2 % vaginal cream (Monistat 7) 1 appful vaginal DAILY PRN YEAST 12/12/21 [History Last Taken 1 Week Ago ~02/17/22] multivitamin-folic acid-herbal no.275 400 mcg-200 mg/30 mL oral liquid 5 ml PO DAILY SUPPLEMENT 12/12/21 [History Last Taken 02/23/22] nystatin 100,000 unit/gram topical powder (Nystop) 1 applic topical TID PRN Skin Cleansing 12/12/21 [History Last Taken 02/24/22] phenazopyridine 200 mg tablet (Pyridium) 200 mg feeding tube TID PRN Bladder Spasms 12/12/21 [History Last Taken 12/11/21] sodium chloride 0.9 % for nebulization 3 - 6 ml inhalation Q2H PRN Congestion 12/12/21 [History Last Taken 02/23/22] blood sugar diagnostic (True Metrix Pro Test Strip) #400 ea 01/05/22 [Rx Last Taken Unknown] lancets 33 gauge (BD Ultra Fine Lancets) #100 ea 01/05/22 [Rx Last Taken Unknown] pen needle, diabetic 32 gauge x /32 (BD Ultra-Fine Priyanka Pen Needle) #360 ea 01/05/22 [Rx Last Taken Unknown] levalbuterol HCl 1.25 mg/3 mL solution for nebulization 1.25 mg (3 mL) inhalation BID BREATHING #90 mL 01/16/22 [Rx Last Taken 02/23/22] cetirizine 1 mg/mL oral solution (Children's Zyrtec Allergy) 10 mg (10 mL) feeding tube DAILY PRN ALLERGIES #480 mL 01/28/22 [Rx Last Taken 02/24/22] hydrocortisone 1 % topical cream 1 applic topical TID PRN Rash 02/24/22 [History Last Taken Unknown] levalbuterol HCl 1.25 mg/3 mL solution for nebulization (Xopenex) 1.25 mg inh alation Q4H PRN sob 02/24/22 [History Last Taken 02/23/22] naphazoline 0.012 % eye drops 2 drp ophthalmic (eye) DAILY PRN allergies 02/24/22 [History Last Taken 02/23/22] montelukast 10 mg tablet 10 mg G-tube QPM #0 tabs 03/02/22 [Rx Last Taken Unknown] lancets 30 gauge (Embrace Lancets) #100 ea 03/12/22 [Rx Last Taken Unknown] acetaminophen 160 mg/5 mL oral liquid 640 mg PO Q6H PRN pain/fever 03/31/22 [History Last Taken Unknown] acetaminophen 500 mg-pamabrom 25 mg-pyrilamine 15 mg tablet 2 tab feeding tube Q6H PRN Menstrual Pain 03/31/22 [History Last Taken Unknown] sruemrwrkmhew-yhwxspaq-ycdhfcnemr 500 mg-60 mg-15 mg tablet (Midol Complete) 2 tab feeding tube Q6H PRN Menstrual Pain 03/31/22 [History Last Taken Unknown] acidophilus 25 million cell-pectin, citrus 100 mg tablet 1 tab G-tube DAILY supplement 03/31/22 [History Last Taken Unknown] atropine 0.01 % eye drop emulsion 1 ea ophthalmic (eye) BID PRN PRN increased secretions 03/31/22 [History Last Taken Unknown] bacitracin 500 unit/gram topical packet 1 applic topical 4X/DAY PRN PRN scratches 03/31/22 [History Last Taken Unknown] bismuth subsalicylate 262 mg/15 mL oral suspension (Pepto-Bismol) 524 mg PO Q30M PRN antidiarrheal 03/31/22 [History Last Taken Unknown] carbamide peroxide 6.5 % ear drops (Debrox) 5 drp EACH EAR DAILY PRN Ear Wax 03/31/22 [History Last Taken Unknown] fexofenadine 30 mg/5 mL oral suspension 60 mg PO BID PRN allergies 03/31/22 [History Last Taken Unknown] fluconazole 10 mg/mL oral suspension 150 mg feeding tube PRN PRN yeast 03/31/22 [History Last Taken Unknown] fluticasone propionate 44 mcg/actuation HFA aerosol inhaler (Flovent HFA) 2 puff inhalation BID 03/31/22 [History Last Taken Unknown] fosfomycin tromethamine 3 gram oral packet 1 packet feeding tube 3XD 03/31/22 [History Last Taken Unknown] insulin aspart U-100 100 unit/mL (3 mL) subcutaneous pen (Novolog Flexpen U-100 Insulin aspart) 0 unit subcut 4X/DAY 03/31/22 [History Last Taken Unknown] magnesium citrate 10 - 60 ml feeding tube BID PRN Constipation 03/31/22 [History Last Taken Unknown] magnesium hydroxide 400 mg/5 mL oral suspension (Milk of Magnesia) 15 - 60 ml PO DAILY PRN Constipation 03/31/22 [History Last Taken Unknown] nitrofurantoin monohydrate/macrocrystals 100 mg capsule 100 mg PO Q12 #14 CAPSULES 03/31/22 [Rx Last Taken Unknown] nystatin 100,000 unit/gram topical powder 1 applic topical BID PRN redness 03/31/22 [History Last Taken Unknown] sennosides 8.6 mg tablet 17.2 mg feeding tube BID PRN Constipation 03/31/22 [History Last Taken Unknown] insulin aspart U-100 100 unit/mL (3 mL) subcutaneous pen 9 unit (0.09 mL) subcut TID Diabetes #15 mL 05/12/22 [Rx Last Taken Unknown] Allergy/AdvReac Type Severity Reaction Status Date / Time linezolid Allergy Severe Other - Verified 06/02/22 13:17 seizure & coma vancomycin Allergy Severe Other - Verified 06/02/22 13:17 kidney failure tobramycin Allergy Intermediate Other - Verified 06/02/22 13:17 turned beet red nafcillin Allergy Mild Rash Verified 06/02/22 13:17 benzoin Allergy Unknown Rash Verified 06/02/22 13:17 milk Allergy Unknown Other Verified 06/02/22 13:17 soy Allergy Unknown Other Verified 06/02/22 13:17 polyethylene glycol 3350 AdvReac Unknown Hives Verified 06/02/22 13:17 [From Miralax] Family History Grandmother Cancer maternal Other Adopted Surgical History derotatox ostomies eyes straightened Gastrostomy tube in place H/O spinal fusion Presence of intrathecal baclofen pump rods to back Status post Jorje fundoplication surgery on gland under tongue tendonatomies Tracheostomy status Social History household members: other details: Mother and is vent dependent housing: house Smoking Status: Never smoker second hand exposure: No alcohol intake: never substance use type: does not use ROS ROS ED ROS Narrative Review of systems obtained while discussing with mom. Constitutional Constitutional ED: Reports fever(s); Denies chills or weight loss Eyes Eyes: Denies change in vision or diplopia ENT ENT ED: Denies ear pain, rhinorrhea or sore throat Cardiovascular Cardiovascular: Denies chest pain, orthopnea, palpitations or racing heartbeat Respiratory/Chest Respiratory/Chest: Denies cough, dyspnea or orthopnea Gastrointestinal Gastrointestinal: Denies abdominal pain, diarrhea, nausea or vomiting Genitourinary Genitourinary ED: Denies dysuria, hematuria or urinary frequency Musculoskeletal Musculoskeletal: Denies arthralgias or myalgias Integumentary Denies abscess or rash Neurologic Neurologic: Denies headache(s) or weakness Psychiatric Psychiatric: Denies anxiety, depression, suicidal ideation or suicidal thoughts Endocrine Endocrinology: Denies polydipsia, polyphagia or polyuria Allergic/Immunologic Allergic/Immunologic ED: Denies mouth swelling, tongue swelling or urticaria EXAM Physical Exam Const Vital Signs: 06/02/22 13:11 Temperature 97 F L Temperature Source Temporal Pulse Rate 105 H Respiratory Rate 18 Blood Pressure 116/102 H Blood Pressure Mean 106 Pulse Ox 94 Oxygen Delivery Method Mechanical Ventilator Positive well nourished and well developed General Appearance ED: well developed HEENT Reports normocephalic, head/scalp atraumatic and moist mucous membranes HEENT Narrative: Trach on ventilator Eyes PERRL and EOMs intact bilaterally Neck no lymphadenopathy, supple and no JVD Neck Narrative: Patient with her head turned to the extreme rotation of the left looking up. Resp normal respiratory effort Auscultation: rhonchi Cardio regular rate, regular rhythm and no murmurs GI normal to inspection, nondistended, normoactive bowel sounds and non-tender Palpation: soft Back/Spine no CVA tenderness and normal ROM Extremity normal to inspection General Extremety ED: Negative for edema General Extremity: Negative for edema Neuro Sensorium / Orientation: alert MDM MDM MDM Narrative Medical decision making narrative: I called Dr. Bettencourt and discussed the case with him. It is typically very difficult to get PICC line placed in the emergency department. Patient is a very hard IV stick. We are able to get a peripheral IV in her hand. White count is 10.4. CMP shows a glucose of 184. We were able to get in contact with the PICC line nurse who states that they can come in at [address] a PICC line for us. Mom is able to get the ertapenem that she needs to give the patient when she gets home. We administered the first dose of ertapenem here. Mom is comfortable being discharged after the PICC line is placed. Lab Data Attestation: I reviewed the patient's lab results. Labs: Laboratory Results - last 24 hr 06/02/22 06/02/22 15:20 15:20 WBC 10.4 RBC 3.94 L Hgb 12.5 Hct 37.2 MCV 94.4 MCH 31.7 MCHC 33.6 RDW Std Deviation 41.6 RDW Coeff of Anne 12.0 Plt Count 246 MPV 10.4 Immature Gran % (Auto) 0.800 Neut % (Auto) 75.7 H Lymph % (Auto) 13.3 L [place] % (Auto) 8.2 Eos % (Auto) 1.6 Baso % (Auto) 0.4 Absolute Neuts (auto) 7.9 H Absolute Lymphs (auto) 1.38 Nucleated RBC % 0 Sodium 138 Potassium 3.9 Chloride 100 Carbon Dioxide 29.0 Anion Gap 9 BUN 14 Creatinine 0.45 L Estim Creat Clear Calc 140.09 Est GFR (MDRD) Af Amer 207 Est GFR (MDRD) Non-Af 171 BUN/Creatinine Ratio 31.0 H Glucose 184 H Calcium 9.5 Total Bilirubin 0.20 AST 11 L ALT 22 Alkaline Phosphatase 73 Total Protein 7.9 Albumin 3.9 Globulin 4.0 Albumin/Globulin Ratio 1.0 Discharge Plan Triage Chief Complaint: Complaint ED Provider: Dipesh Goldsmith Dx/Rx/DC Orders Clinical Impression: UTI (urinary tract infection), Bedbound, Cerebral palsy, Neuromuscular scoliosis Prescriptions: No Action oxcarbazepine [Trileptal] 300 mg/5 mL (60 mg/mL) suspension 8 ml GT BID guaifenesin 100 mg/5 mL liquid 200 mg GT Q4H PRN PRN (Reason: thick secretions) Qty: 1000 3RF (DME) pen needle, diabetic [BD Ultra-Fine Priyanka Pen Needle] 32 gauge x 5/32 needle See Rx Instructions .ROUTE .MEDSUPPLY Qty: 360 3RF Rx Instructions: 4 times daily (DME) True Metrix Pro Test Strip Strip See Rx Instructions .ROUTE .MEDSUPPLY Qty: 400 3RF Rx Instructions: 4 times daily, plus extra for mental status change (DME) lancets [BD Ultra Fine Lancets] 33 gauge misc See Rx Instructions .ROUTE .MEDSUPPLY Qty: 100 0RF Rx Instructions: 4 times daily baclofen 20 MG tablet 30 mg GT TID Label Comments: pain ferrous sulfate 15 mg iron (75 mg)/mL Syringe 5 ml feeding tube QODAY diazepam 5 mg/5 mL (1 mg/mL) Solution 7 mg feeding tube BID diazepam 5 mg/5 mL (1 mg/mL) Solution 5 mg feeding tube DAILY@1400 methenamine hippurate [Hiprex] 1 gram Tablet 1 g feeding tube BID docusate sodium 60 mg/15 mL Syrup 60 mg feeding tube DAILY diphenhydramine HCl [Benadryl Allergy] 12.5 mg/5 mL Liquid 12.5 mg feeding tube DAILY PRN (Reason: allergies) miconazole nitrate [Monistat 7] 2 % Cream 1 appful VAGINAL DAILY PRN (Reason: YEAST) phenazopyridine [Pyridium] 200 mg Tablet 200 mg feeding tube TID PRN (Reason: Bladder Spasms) nystatin [Nystop] 100,000 unit/gram Powder 1 applic TOPICAL TID PRN (Reason: Skin Cleansing) ibuprofen 100 mg/5 mL Suspension 400 mg PO Q6H PRN (Reason: Pain) sodium chloride 0.9 % Solution For Nebulization 3 - 6 ml INHALATION Q2H PRN (Reason: Congestion) ascorbic acid (vitamin C) 500 mg/5 mL Syrup 500 mg feeding tube BID cholecalciferol (vitamin D3) 50 mcg (2,000 unit) Capsule 50 mcg feeding tube DAILY multivit-folic acid-herbal 275 400 mcg-200 mg/30 mL Liquid 5 ml PO DAILY levalbuterol HCl [Xopenex] 1.25 mg/3 mL Solution For Nebulization 1.25 mg INHALATION Q4H PRN (Reason: sob) hydrocortisone 1 % Cream 1 applic TOPICAL TID PRN (Reason: Rash) naphazoline 0.012 % Drops 2 drp OPHTHALMIC (EYE) DAILY PRN (Reason: allergies) montelukast 10 mg Tablet 10 mg G-tube QPM Qty: 0 0RF sennosides 8.6 mg Tablet 17.2 mg feeding tube BID PRN (Reason: Constipation) acetaminophen 160 mg/5 mL Liquid 640 mg PO Q6H PRN (Reason: pain/fever) fosfomycin tromethamine 3 gram Packet 1 packet feeding tube 3XD Midol Complete 500-60-15 mg Tablet 2 tab feeding tube Q6H PRN (Reason: Menstrual Pain) Pamprin Multi-Symptom 500-25-15 mg Tablet 2 tab feeding tube Q6H PRN (Reason: Menstrual Pain) magnesium hydroxide [Milk of Magnesia] 400 mg/5 mL Suspension 15 - 60 ml PO DAILY PRN (Reason: Constipation) fluconazole 10 mg/mL Suspension For Reconstitution 150 mg feeding tube PRN PRN (Reason: yeast) bismuth subsalicylate [Pepto-Bismol] 262 mg/15 mL Suspension 524 mg PO Q30M PRN (Reason: antidiarrheal) Rx Instructions: do not exceed 8 doses in a 24 hour period fluticasone propionate [Flovent HFA] 44 mcg/actuation Hfa Aerosol Inhaler 2 puff INHALATION BID Rx Instructions: administer with spacer Debrox 6.5 % Drops 5 drp EACH EAR DAILY PRN (Reason: Ear Wax) magnesium citrate Solution 10 - 60 ml feeding tube BID PRN (Reason: Constipation) nystatin 100,000 unit/gram Powder 1 applic TOPICAL BID PRN (Reason: redness) insulin aspart U-100 [Novolog Flexpen U-100 Insulin] 100 unit/mL (3 mL) Insulin Pen 0 unit SUBCUT 4X/DAY Rx Instructions: sliding scale bacitracin 500 unit/gram Packet 1 applic TOPICAL 4X/DAY PRN PRN (Reason: scratches) fexofenadine 30 mg/5 mL Suspension 60 mg PO BID PRN (Reason: allergies) atropine 0.01 % Drops, Emulsion 1 ea OPHTHALMIC (EYE) BID PRN PRN (Reason: increased secretions) acidophilus-pectin, citrus 25 million cell -100 mg tablet 1 tab G-tube DAILY Rx Instructions: Rxhe-bro-dfecwtu nitrofurantoin monohyd/m-cryst [nitrofurantoin monohyd/m-cryst] 100 mg capsule 100 mg PO Q12 Qty: 14 0RF levalbuterol HCl 1.25 mg/3 mL solution for nebulization 1.25 mg INHALATION BID Qty: 90 5RF cetirizine [Children's Zyrtec Allergy] 1 mg/mL solution 10 mg feeding tube DAILY PRN (Reason: ALLERGIES) Qty: 480 6RF (DME) lancets [Embrace Lancets] 30 gauge misc See Rx Instructions .Route Qty: 100 3RF Rx Instructions: As directed insulin aspart U-100 100 unit/mL (3 mL) insulin pen 9 unit subcut TID MDD 48 Qty: 15 0RF Rx Instructions: plus sliding scale 180 +1; 211 + 2; 241 +3; 270 + 4 units Primary Care Provider: Sandra Bermudez Referrals: Sandra Bermudez DO [Primary Care Provider] - Rafa Bettencourt MD [[facility] Staff - Active Staff] - Keep Estela appointment
[2022-06-02 16:02] LABS: Mucous, Urine 0 SEEN /hpf (<or=2+)
--- NOTE | 2022-06-02 16:30 | NURSING ---
BLUE TOP HEMOLIZED. LAB REPRINTING LABEL
[2022-06-02 16:41] LABS: Lactic Acid 2.7 mmol/L (0.4-1.9)
[2022-06-02 17:11] LABS: Partial Thromboplast Time 24.1 Seconds (24.1-36.2); Prothrombin Time (Protime)PT. 13.1 SECONDS (11.7-14.9)
[2022-06-02 17:38] LABS: Glucose, Dipstick Normal (Normal); Ketone-Dipstick Negative (Negative); Leukocyte Esterase-Dipstick 500 /ul (Negative); Nitrite-Dipstick Positive (Negative); Occult Blood-Urine 250 /ul (Negative); Protein-Dipstick 30 mg/dl (Negative); Urine Bilirubin Dipstick Negative (Negative); Urine Clarity Cloudy (Clear); Urine Urobilinogen Normal (Normal)
[2022-06-02 17:40] LABS: Color, Urine Yellow (Yellow)
--- NOTE | 2022-06-02 18:00 | RAD_ITS ---
STUDY: X-RAY CHEST REASON FOR EXAM: Female, 32 years old. LINE PLACEMENT TECHNIQUE: AP portable COMPARISON: None. FINDINGS: There is elevated left hemidiaphragm and mild left basilar atelectasis.. There is no demonstrated pleural abnormality. PICC line noted on the right with tip in distal superior vena cava. Normal size heart. Normal mediastinum and glenn. Normal visualized pulmonary arteries. Normal visualized aortic arch and descending thoracic aorta. Tracheostomy tube noted within the midline. Dorsal spine demonstrates severe dextroscoliosis. There are also postsurgical changes involving the thoracolumbar spine. Normal visualized ribs, clavicles, and shoulders. There is no demonstrated abnormality of the visualized soft tissue structures of the upper abdomen. RAD/Chest 1 View (Portable) IMPRESSION: Mild left basilar atelectasis. Right-sided PICC line noted with tip in distal superior vena cava Electronically Signed: Abdirahman Awad MD at 18:28 EDT ,
[2022-06-02 18:01] LABS: Bacteria 4+ /hpf (None Seen); Red Blood Cells-Urine 25-50 SEEN /hpf (0-5); Squamous Epithelial Cells - UA 5-10 SEEN /hpf (5-10); White Blood Cells >100 SEEN /hpf (0-5)
--- NOTE | 2022-06-02 18:33 | NURSING ---
PICC inserted right cephalic under US guidance. Lidocaine used. PICC inserted 29 cm w 0 cm exterior. Secured with CHG dressing. No issues w threading line. xray ordeered. Screening tool filled out and timeout performed prior to procedure.
--- NOTE | 2022-06-02 18:48 | NURSING ---
PICC line insertion verified via CXR. PICC education provided by PICC RN. Pt's mother comfortable with care and IV antbx administration, as she has provided this care in the past. Physicians to be called for transport home.
[2022-06-02 19:30] LABS: Reflex Lactate? Y
== END 2022-06-02 21:50 | disposition home or self-care (01) ==
PROVIDERS: Emergency Provider Emergency Medicine; PCP Internal Medicine; Visit Provider Emergency Medicine
DX: N39.0 Urinary tract infection, site not specified (principal); G80.9 Cerebral palsy, unspecified; E11.9 Type 2 diabetes mellitus without complications; Z79.4 Long term (current) use of insulin; M41.40 Neuromuscular scoliosis, site unspecified; Z74.01 Bed confinement status
CPT/HCPCS: 36415; 36569; 71045; 80053; 81001; 83605; 85025; 85610; 85730; 87040; 87077; 87086; 87088; 87186; 96365; 99285; A4216

== ENCOUNTER 2022-06-08 10:00 | Outpatient (RCR) | payer MEDICAID, SELFPAY ==
[2022-01-11 00:53] VITALS: BMI 25.0
--- NOTE | 2022-05-21 11:47 | EX.NTREPO ---
Medical Nutrition Therapy - History Nutrition Services has been consulted to:: Manage enteral nutrition Current diet/nutrition support order:: 300mL bolus [employer] Peptide 1.5 3 times per day which provides 1350 calories, 66 g protein; 1360mL H2O flushes throughout the day (4 150mL flushes, 2 240mL flushes, and 1 280mL flush) - Anthropometric Measurements Height:: 4 ft 7 in Weight:: 47.1 kg Body Mass Index (BMI):: 24.1 - Assessment Food and Nutrient Intake: Message left from mom, Rina, and home health nurse Catherine. Spoke Rina and Catherine via telephone- Lesa is having significant diarrhea and bloating. They are concerned she is getting too much volume at her feedings. Catherine states Lesa just finished 3 antibiotics for c.diff, e.coli, and pseudomonas. Blood sugars have been elevated (>200) over past 24 hours. Rina states Lesa has blood in her urine- urine and stool cultures collected and currently pending. Rina and Catherine concered that tube feeds are causing diarrhea- explained likely r/t antibiotics as pt was tolerating [employer] product previously. Discussed lowering volume of feeds and increasing feed frequency or switching to continuous feeds. Catherine and Rina electing for increasing to 5 bolus feeds of [employer] Peptide 1.5 per day, 180mL each bolus which provides 1350 calories, 66 g protein (roughly 25 g CHO per bolus). Will continue same flushes. - Protein Calorie Malnutrition Evidence of Malnutrition Exists: No - Nutrition Intervention Nutrition Prescription: 900-1100 calories/day (30 calories/kg IBW). 41-51 g protein/day (1.2-1.5g/kg IBW). 1190-1648mL fluid/day (35mL/kg IBW) - Food / Nutrient Delivery Interventions Summary of nutrition intervention:: Order/adjust enteral nutrition Nutrition support ordered as / adjusted to:: Will adjust tube feeds to 5 bolus feeds of [employer] Peptide 1.5 per day via PEG- 180mL each bolus which provides 1350 calories, 66 g protein (roughly 25 g CHO per bolus). Will continue same flushes to provide ~1360mL free fluid. Coordination of Nutrition Care: Rina to follow-up w/ Dr. Messina regarding management of blood sugars- was on SSI 9 units at meals. Anticipate adjustment in blood sugar management given changes in tube feeding boluses. Will fax updated dietitian notes to Dr. Bermudez, Dr. Messina, and home health care agency. May need to consider anti-diarrheal medication. - MNT Monitoring Active Nutrition Patient: Yes
[2022-05-21 11:49] VITALS: BMI 24.1
== END 2022-06-12 23:59 ==
LOC: NS 10:00
PROVIDERS: PCP Internal Medicine; Visit Provider Internal Medicine Endocrinology, Diabetes & Metabolism
DX: Z71.3 Dietary counseling and surveillance (principal); Z93.1 Gastrostomy status; E11.9 Type 2 diabetes mellitus without complications
CPT/HCPCS: 97803

== ENCOUNTER → 2022-06-23 | Outpatient (CLI) | payer MEDICAID, SELFPAY | END | disposition home or self-care (01) | LOC: LABSPEC 10:52 | PROVIDERS: PCP Internal Medicine; Referring Provider Internal Medicine Infectious Disease; Visit Provider Internal Medicine Infectious Disease | DX: R19.7 Diarrhea, unspecified (principal) | CPT/HCPCS: 87493 ==

== ENCOUNTER → 2022-07-04 | Outpatient (CLI) | payer MEDICAID, SELFPAY | END | disposition home or self-care (01) | LOC: LABSPEC 10:54 | PROVIDERS: PCP Internal Medicine; Visit Provider Internal Medicine Critical Care Medicine | DX: J47.9 Bronchiectasis, uncomplicated (principal) | CPT/HCPCS: 87070; 87077; 87186; 87205 ==

== ENCOUNTER → 2022-07-06 | Outpatient (CLI) | payer MEDICAID, SELFPAY ==
[2022-07-06 10:09] LABS: Mucous, Urine 0 SEEN /hpf (<or=2+)
[2022-07-06 10:28] LABS: Absolute Neutrophil Count 4.9 X10^3/uL (2.0-7.7); Basophil# 0.03 X10^3/uL; Basophil% 0.4 % (0-1); Eosinophils% 2.8 % (0-5); Hematocrit 38.3 % (37-47); Hemoglobin 12.7 g/dL (12.0-15.0); Lymphocyte % 19.8 % (19-41); Mean Corp Hgb Conc 33.2 g/dL (32-36); Mean Corpuscular Hgb 32.1 pg (27.0-32.0); Mean Corpuscular Volume 96.7 fL (81-99); Mean Platelet Vol. 10.6 fl (6.2-12.0); Monocyte# 0.48 X10^3/uL; Monocyte% 6.8 % (0-10); NRBC Flagged by Analyzer 0 % (0-5); Neutrophil % 69.2 % (47-70); Platelet Count 256 K/mm3 (150-450); RBC Distribution Width CV 12.2 % (11.6-14.6); RBC Distribution Width SD 43.1 fl (35.1-43.9); Red Blood Count 3.96 M/mm3 (4.2-5.4); White Blood Count 7.1 K/mm3 (4.4-11.0)
[2022-07-06 10:32] LABS: Color, Urine Yellow (Yellow); Glucose, Dipstick 250 mg/dl (Normal); Ketone-Dipstick 5 mg/dl (Negative); Leukocyte Esterase-Dipstick 500 /ul (Negative); Nitrite-Dipstick Negative (Negative); Occult Blood-Urine 250 /ul (Negative); Protein-Dipstick 100 mg/dl (Negative); Specific Gravity, Urine 1.015 (1.002-1.030); Urine Bilirubin Dipstick Negative (Negative); Urine Clarity Cloudy (Clear); Urine Urobilinogen Normal (Normal); Urine pH 6.5 (5.0 - 8.0)
[2022-07-06 10:39] LABS: White Blood Cells >100 SEEN /hpf (0-5)
[2022-07-06 10:40] LABS: Red Blood Cells-Urine 25-50 SEEN /hpf (0-5)
[2022-07-06 10:41] LABS: Bacteria 4+ /hpf (None Seen); Squamous Epithelial Cells - UA 0-5 SEEN /hpf (5-10)
[2022-07-06 10:46] LABS: Vitamin B12 1263 pg/mL (211-911)
[2022-07-06 11:01] LABS: ALB/GLOB Ratio 0.9 RATIO (0.9-2.4); AST(SGOT) 16 U/L (15-37); Alanine Aminotransfer ALT/SGPT 30 U/L (13-56); Albumin, Serum 3.8 g/dL (3.2-5.0); Alkaline Phosphatase 83 U/L (45-117); Anion Gap 9 (5-15); BUN 21 mg/dL (7-18); BUN/Creat Ratio 31.8 RATIO (10-20); Calcium,Total 9.4 mg/dL (8.5-10.1); Chloride 103 mmol/L (98-107); Creatinine, Serum 0.66 mg/dL (0.55-1.02); EST Glomerular Filtration Rate 110 mL/min (>60); Est Glom Filt Rate - Afr Amer 133 mL/min (>60); Ferritin 51 ng/mL (8-252); Globulin 4.2 g/dL (2.2-4.2); Glucose 291 mg/dL (74-106); Iron 72 ug/dL (50-170); Iron Binding Capacity,Total 354 ug/dL (250-450); PERCENT IRON SATURATION 20.3 % (15.0-55.0); Potassium 3.7 mmol/L (3.5-5.1); Sodium Level 138 mmol/L (136-145)
[2022-07-09 17:29] LABS: Trileptal-Oxcarbazepine 28 ug/mL (10-35)
== END | disposition home or self-care (01) ==
LOC: LAB 09:08
PROVIDERS: PCP Internal Medicine; Visit Provider Internal Medicine
DX: R74.8 Abnormal levels of other serum enzymes (principal); G40.909 Epilepsy, unspecified, not intractable, without status epilepticus; N20.0 Calculus of kidney; D64.9 Anemia, unspecified
CPT/HCPCS: 36415; 80053; 81001; 82542; 82607; 82728; 83540; 83550; 85025; 87077; 87086; 87088; 87186

== ENCOUNTER 2022-07-07 15:40 | Outpatient (RCR) | payer MEDICAID, SELFPAY ==
[2022-06-13 00:10] VITALS: BMI 24.1
== END 2022-07-13 23:59 ==
LOC: NS 15:40
PROVIDERS: PCP Internal Medicine; Visit Provider Internal Medicine Endocrinology, Diabetes & Metabolism
DX: Z71.3 Dietary counseling and surveillance (principal); Z93.1 Gastrostomy status; E11.9 Type 2 diabetes mellitus without complications

== ENCOUNTER 2022-08-19 15:14 | Outpatient (RCR) | payer MEDICAID, SELFPAY ==
[2022-07-14 00:10] VITALS: BMI 24.1
== END 2022-09-12 23:59 ==
LOC: NS 15:14
PROVIDERS: PCP Internal Medicine; Visit Provider Internal Medicine Endocrinology, Diabetes & Metabolism
DX: Z71.3 Dietary counseling and surveillance (principal); Z93.1 Gastrostomy status; E11.9 Type 2 diabetes mellitus without complications; N20.1 Calculus of ureter
CPT/HCPCS: 97803

== ENCOUNTER 2022-08-29 13:00 | Inpatient (IN) | payer MEDICAID, SELFPAY ==
[2022-08-29] VITALS (11 sets, daily range): BP systolic 113–137; BP diastolic 67–82; PULSE 97–139; RESP 14–27; TEMP 37.1–38.3; O2SAT 97–100; BMI 27.0
--- NOTE | 2022-08-29 13:41 | EKG12_ITS ---
Test Reason : GENERAL ILLNESS Blood Pressure : / mmHG Vent. Rate : 137 BPM Atrial Rate : 137 BPM P-R Int : 138 ms QRS Dur : 076 ms QT Int : 276 ms P-R-T Axes : 033 015 073 degrees QTc Int : 416 ms Sinus tachycardia Otherwise normal ECG Confirmed by KAITLIN LEIJA, FROYLAN ([id number]), editor producer KRYSTYNA ANDERSON ([id number]) on 08/31/2022 12:46:41 PM Referred By: ANIL Confirmed By:FROYLAN MADRIGAL MD
--- NOTE | 2022-08-29 13:44 | EDS_ITS ---
HPI History of Present Illness Chief Complaint: Fever Narrative Narrative: 32-year-old female presents with her mother with a fever. Apparently this started this morning. She was given ibuprofen this morning but the fever is only gone down to about 101. Patient's mother reports that she had an upset stomach a couple of days ago but has not been vomiting. She does admit that the patient has a lot of diarrhea. She describes it as watery. Does not appear black or bloody. She reports patient has a history of urinary tract infections in the past. She also has history of C. difficile colitis. Patient's mother notes that she has had to turn up her oxygen on her ventilator which he uses to her tracheostomy. She was usually at 3 L and today is at 5 L. She states that the oxygen was low at home. Patient is bedbound due to history of [facility] Medical History Allergic rhinitis due to other allergen Amenorrhea Bedbound Bladder disease Bronchiectasis without acute exacerbation Bronchitis Cerebral palsy Chronic respiratory failure Diabetes Dietary restriction History of Clostridium difficile infection History of renal disease Hyperglycemia Irregular menstrual cycle Kidney stones Lactic acid acidosis Mild mental retardation MRSA infection Neuromuscular scoliosis Non-smoker On home oxygen therapy On tube feeding diet Pancreatitis Paraplegia PICC (peripherally inserted central catheter) in place Pneumonia Recurrent UTI Redness of skin Renal calculi Renal calculus or stone Respiratory acidosis Seizure Seizures Severe sepsis Skin tag of vaginal mucosa 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 Thrush Urinary tract infection due to extended-spectrum beta lactamase (ESBL) producing Escherichia coli Ventilator dependent Visual disturbance Vitamin D deficiency Home Medications baclofen 20 mg tablet 30 mg G-tube TID muscle spasms 09/02/13 [History Last Taken 02/24/22] oxcarbazepine 300 mg/5 mL (60 mg/mL) oral suspension (Trileptal) 8 ml G-tube BID seizure 08/28/17 [History Last Taken 02/24/22] diazepam 5 mg/5 mL (1 mg/mL) oral solution 5 mg feeding tube DAILY@1400 spasms 05/20/21 [History Last Taken 02/24/22] diazepam 5 mg/5 mL (1 mg/mL) oral solution 7 mg feeding tube BID spasms 05/20/21 [History Last Taken 02/24/22] guaifenesin 100 mg/5 mL oral liquid 200 mg (10 mL) G-tube Q4H PRN PRN thick secretions #1,000 mL 09/25/21 [Rx Last Taken 02/23/22] ascorbic acid (vitamin C) 500 mg/5 mL oral syrup 500 mg feeding tube BID SUPPLEMENT 12/12/21 [History Last Taken 02/24/22] cholecalciferol (vitamin D3) 50 mcg (2,000 unit) capsule 50 mcg feeding tube DAILY SUPPLEMENT 12/12/21 [History Last Taken 02/24/22] ibuprofen 100 mg/5 mL oral suspension 400 mg PO Q6H PRN Pain 12/12/21 [History Last Taken 02/24/22] miconazole nitrate 2 % vaginal cream (Monistat 7) 1 appful vaginal DAILY PRN YEAST 12/12/21 [History Last Taken 1 Week Ago ~02/17/22] multivitamin-folic acid-herbal no.275 400 mcg-200 mg/30 mL oral liquid 5 ml PO DAILY SUPPLEMENT 12/12/21 [History Last Taken 02/23/22] sodium chloride 0.9 % for nebulization 3 - 6 ml inhalation Q2H PRN Congestion 12/12/21 [History Last Taken 02/23/22] blood sugar diagnostic (True Metrix Pro Test Strip) #400 ea 01/05/22 [Rx Last Taken Unknown] pen needle, diabetic 32 gauge x 5/32 (BD Ultra-Fine Priyanka Pen Needle) #360 ea 01/05/22 [Rx Last Taken Unknown] levalbuterol HCl 1.25 mg/3 mL solution for nebulization 1.25 mg (3 mL) inhalation BID BREATHING #90 mL 01/16/22 [Rx Last Taken 02/23/22] naphazoline 0.012 % eye drops 2 drp ophthalmic (eye) DAILY PRN allergies 02/24/22 [History Last Taken 02/23/22] acetaminophen 160 mg/5 mL oral liquid 640 mg PO Q6H PRN pain/fever 03/31/22 [History Last Taken Unknown] acidophilus 25 million cell-pectin, citrus 100 mg tablet 1 tab G-tube DAILY supplement 03/31/22 [History Last Taken Unknown] bismuth subsalicylate 262 mg/15 mL oral suspension (Pepto-Bismol) 524 mg PO Q30M PRN antidiarrheal 03/31/22 [History Last Taken Unknown] carbamide peroxide 6.5 % ear drops (Debrox) 5 drp EACH EAR DAILY PRN Ear Wax 03/31/22 [History Last Taken Unknown] fluconazole 10 mg/mL oral suspension 150 mg feeding tube PRN PRN yeast 03/31/22 [History Last Taken Unknown] fluticasone propionate 44 mcg/actuation HFA aerosol inhaler (Flovent HFA) 2 puff inhalation BID Check with primary doctor 03/31/22 [History Last Taken Unknown] magnesium hydroxide 400 mg/5 mL oral suspension (Milk of Magnesia) 15 - 60 ml PO DAILY PRN Constipation 03/31/22 [History Last Taken Unknown] nystatin 100,000 unit/gram topical powder 1 applic topical BID PRN redness 03/31/22 [History Last Taken Unknown] levalbuterol HCl 1.25 mg/3 mL solution for nebulization (Xopenex) 1.25 mg (3 mL) inhalation Q4H PRN sob #150 mL 06/17/22 [Rx Last Taken Unknown] lancets 30 gauge (Embrace Lancets) #200 ea 07/22/22 [Rx Last Taken Unknown] ferrous sulfate 15 mg iron (75 mg)/mL oral syringe (ORAL USE) 5 ml feeding tube .Mon, Luann supplement 08/24/22 [History Last Taken Unknown] methenamine hippurate 1 gram tablet (Hiprex) 1 g feeding tube BID infection prevention 08/24/22 [History Last Taken Unknown] montelukast 10 mg tablet 10 mg G-tube QPM PRN Allergic Reaction 08/24/22 [History Last Taken Unknown] docusate sodium 60 mg/15 mL oral syrup 60 mg feeding tube DAILY Check with primary doctor 08/29/22 [History Last Taken Unknown] insulin aspart U-100 100 unit/mL (3 mL) subcutaneous pen 9 unit subcut TIDCM Diabetes 08/29/22 [History Last Taken Unknown] insulin glargine 100 unit/mL (3 mL) subcutaneous pen (Basaglar KwikPen U-100 Insulin) 20 unit subcut QPM Check with primary doctor 08/29/22 [History Last Taken Unknown] nutritional supplements 1 ea PO BID Check with primary doctor 08/29/22 [History Last Taken Unknown] Allergy/AdvReac Type Severity Reaction Status Date / Time linezolid Allergy Severe Other - Verified 08/29/22 13:03 seizure & coma vancomycin Allergy Severe Other - Verified 08/29/22 13:03 kidney failure tobramycin Allergy Intermediate Other - Verified 08/29/22 13:03 turned beet red nafcillin Allergy Mild Rash Verified 08/29/22 13:03 benzoin Allergy Unknown Rash Verified 08/29/22 13:03 milk Allergy Unknown Other Verified 08/29/22 13:03 soy Allergy Unknown Other Verified 08/29/22 13:03 polyethylene glycol 3350 AdvReac Unknown Hives Verified 08/29/22 13:03 [From Miralax] Family History Grandmother Cancer maternal Other Adopted Surgical History derotatox ostomies eyes straightened Gastrostomy tube in place H/O spinal fusion Presence of intrathecal baclofen pump rods to back Status post Jorje fundoplication surgery on gland under tongue tendonatomies Tracheostomy status Social History household members: other details: Mother and is vent dependent housing: house Smoking Status: Never smoker second hand exposure: No alcohol intake: never substance use type: does not use EXAM Physical Exam Const Vital Signs: 08/29/22 13:03 08/29/22 13:07 08/29/22 13:07 Temperature 100.9 F H Temperature Source Temporal Pulse Rate 138 H 139 H Respiratory Rate 14 14 Respiratory Effort Normal Blood Pressure 134/82 H 134/82 H Blood Pressure Mean 99 99 Pulse Ox 97 98 Oxygen Delivery Method Mechanical Ventilator Mechanical Ventilator Oxygen Flow Rate (L/min) Fraction of Inspired Oxygen (FIO2) 08/29/22 15:08 08/29/22 15:48 08/29/22 16:04 Temperature 99.4 F H 99.4 F H Temperature Source Temporal Temporal Pulse Rate 126 H 129 H Respiratory Rate 27 H 27 H Respiratory Effort Blood Pressure 137/80 H 122/80 H Blood Pressure Mean 99 94 Pulse Ox 98 99 99 Oxygen Delivery Method Mechanical Ventilator Mechanical Ventilator Room Air Oxygen Flow Rate (L/min) 5 5 Fraction of Inspired Oxygen (FIO2) 100 08/29/22 17:28 08/29/22 18:06 Temperature 98.7 F Temperature Source Temporal Pulse Rate 106 H 104 H Respiratory Rate 15 22 H Respiratory Effort Blood Pressure 122/71 H 117/67 Blood Pressure Mean 88 83 Pulse Ox 99 98 Oxygen Delivery Method Room Air Room Air Oxygen Flow Rate (L/min) Fraction of Inspired Oxygen (FIO2) MDM MDM MDM Narrative Medical decision making narrative: Patient presenting with fever. This started today. She was tachycardic in the 130s. She is not had a fever of 100.9. Mother states that tube feeds of been normal. She has not vomited. She is having liquid diarrhea with a history of C. difficile. Mother also reports that she had to turn up the oxygen on the ventilator. Patient given a dose of Tylenol here for fever. She was given 2 L of IV fluids. Rapid flu and rapid COVID were negative. CBC shows a leukocytosis of 14.6. Hemoglobin hematocrit are stable. Platelets are normal. Coagulation studies unremarkable. Renal function electrolytes unremarkable with exception of a sodium of 131. Glucose is elevated at 275 without anion gap. LFTs are normal. Lactic acid elevated at 2.9. Urinalysis not consistent with infection. Chest x-ray on my interpretation shows no acute cardiopulmonary process. Radiologist services and agrees. I obtained an EKG to evaluate for tachycardia and this appears to be sinus tachycardia at a ventricular to 137 bpm without sign of ischemic change or dysrhythmia on my interpretation. Given that the patient has a fever without a source and C. difficile is pending I spoke with Dr. Bettencourt from [place] who has worked with her in the past. He recommended covering her with meropenem. Patient was discussed with hospitalist for admission. After the patient going to the medical floor for C. difficile panel came back positive for toxigenic C. difficile. Given that she now has a source she will need to be placed on oral vancomycin. Impression: 1. C. difficile colitis 2. Febrile illness 3. Tachycardia 4. Sepsis Lab Data Attestation: I reviewed the patient's lab results. Labs: Laboratory Results - last 24 hr 08/29/22 08/29/22 08/29/22 14:49 14:49 14:49 WBC 14.6 H RBC 4.02 L Hgb 13.0 Hct 37.3 MCV 92.8 MCH 32.3 H MCHC 34.9 RDW Std Deviation 40.4 RDW Coeff of Anne 11.9 Plt Count 217 MPV 9.7 Immature Gran % (Auto) 0.400 Neut % (Auto) 86.5 H Lymph % (Auto) 4.3 L Morris % (Auto) 8.6 Eos % (Auto) 0.1 Baso % (Auto) 0.1 Absolute Neuts (auto) 12.6 H Absolute Lymphs (auto) 0.63 L Nucleated RBC % 0 PT 13.5 INR 1.1 APTT 29.2 Sodium 131 L Potassium 4.0 Chloride 92 L Carbon Dioxide 27.0 Anion Gap 12 BUN 8 Creatinine 0.67 Estim Creat Clear Calc 96.68 Est GFR (MDRD) Af Amer 132 Est GFR (MDRD) Non-Af 109 BUN/Creatinine Ratio 12.0 Glucose 275 H Lactic Acid Calcium 9.5 Total Bilirubin 0.30 AST 21 ALT 43 Alkaline Phosphatase 95 Total Creatine Kinase 34 Troponin I High Sens 12 Total Protein 8.0 Albumin 3.7 Globulin 4.3 H Albumin/Globulin Ratio 0.9 Urine Color Urine Clarity Urine pH Ur Specific [place] Urine Protein Urine Glucose (UA) Urine Ketones Urine Occult Blood Urine Nitrite Urine Bilirubin Urine Urobilinogen Ur Leukocyte Esterase Urine RBC Urine WBC Ur Squamous Epith Cells Ur Transition Epith Cell Urine Bacteria Urine Mucus 08/29/22 08/29/22 14:49 16:20 WBC RBC Hgb Hct MCV MCH MCHC RDW Std Deviation RDW Coeff of Anne Plt Count MPV Immature Gran % (Auto) Neut % (Auto) Lymph % (Auto) Morris % (Auto) Eos % (Auto) Baso % (Auto) Absolute Neuts (auto) Absolute Lymphs (auto) Nucleated RBC % PT INR APTT Sodium Potassium Chloride Carbon Dioxide Anion Gap BUN Creatinine Estim Creat Clear Calc Est GFR (MDRD) Af Amer Est GFR (MDRD) Non-Af BUN/Creatinine Ratio Glucose Lactic Acid 2.9 H* Calcium Total Bilirubin AST ALT Alkaline Phosphatase Total Creatine Kinase Troponin I High Sens Total Protein Albumin Globulin Albumin/Globulin Ratio Urine Color Yellow Urine Clarity Clear Urine pH 7.0 Ur Specific [place] 1.010 Urine Protein 15 H Urine Glucose (UA) 250 H Urine Ketones 5 H Urine Occult Blood 150 H Urine Nitrite Negative Urine Bilirubin Negative Urine Urobilinogen Normal Ur Leukocyte Esterase 500 H Urine RBC 0 SEEN Urine WBC 25-50 SEEN Ur Squamous Epith Cells 0-5 SEEN Ur Transition Epith Cell 0-5 SEEN Urine Bacteria 0 SEEN Urine Mucus 0 SEEN Radiography Diagnostic Testing: Clinical Impression(s) from Imaging Studies Chest X-Ray 08/29/22 14:27 IMPRESSION: No significant interval change in left basilar atelectasis or scarring. Electronically Signed: Lilibeth Blount MD at 15:00 EST , Discharge Plan Disposition Disposition: Acute Care Hospital [facility] Discharge Date/Time: 08/29/22 18:59
--- NOTE | 2022-08-29 14:27 | RAD_ITS ---
HISTORY: fever. TECHNIQUE: XR Chest 1 View. COMPARISON: 06/02/2022. FINDINGS: CARDIOMEDIASTINAL BORDERS: Cardiomediastinal borders unchanged. Tracheostomy tube tip again just above the thoracic inlet. Right PICC removed. LUNGS: Chronic elevation of the left hemidiaphragm with left basilar atelectasis or scarring. PLEURA: No pleural effusion seen. OSSEOUS STRUCTURES: Chronic scoliosis with spinal fixation hardware again seen. RAD/Chest 1 View (Portable) IMPRESSION: No significant interval change in left basilar atelectasis or scarring. Electronically Signed: Lilibeth Blount MD at 15:00 EST ,
[2022-08-29] MEDS: 0.9% Normal Saline 1,000 ML 999 ML IV ×2 (14:54→16:29)
[2022-08-29] MEDS: Acetaminophen 500 MG Tablet 1000 MG PO (14:55)
[2022-08-29 14:59] LABS: Absolute Lymphocyte Count 0.63 X10^3/uL (0.83-4.51); Absolute Neutrophil Count 12.6 X10^3/uL (2.0-7.7); Basophil# 0.02 X10^3/uL; Basophil% 0.1 % (0-1); Eosinophil# 0.01 X10^3/uL; Eosinophils% 0.1 % (0-5); Hematocrit 37.3 % (37-47); Lymphocyte # 0.63 X10^3/ul (0.83-4.51); Lymphocyte % 4.3 % (19-41); Mean Corp Hgb Conc 34.9 g/dL (32-36); Mean Corpuscular Hgb 32.3 pg (27.0-32.0); Mean Corpuscular Volume 92.8 fL (81-99); Mean Platelet Vol. 9.7 fl (6.2-12.0); Monocyte# 1.26 X10^3/uL; Monocyte% 8.6 % (0-10); NRBC Flagged by Analyzer 0 % (0-5); Neutrophil % 86.5 % (47-70); Platelet Count 217 K/mm3 (150-450); RBC Distribution Width CV 11.9 % (11.6-14.6); RBC Distribution Width SD 40.4 fl (35.1-43.9); Red Blood Count 4.02 M/mm3 (4.2-5.4); White Blood Count 14.6 K/mm3 (4.4-11.0)
[2022-08-29 15:13] LABS: International Normalized Ratio 1.1; Prothrombin Time (Protime)PT. 13.5 SECONDS (11.7-14.9)
[2022-08-29 15:16] LABS: Partial Thromboplast Time 29.2 Seconds (24.1-36.2)
[2022-08-29 15:29] LABS: ALB/GLOB Ratio 0.9 RATIO (0.9-2.4); AST(SGOT) 21 U/L (15-37); Alanine Aminotransfer ALT/SGPT 43 U/L (13-56); Albumin, Serum 3.7 g/dL (3.2-5.0); Alkaline Phosphatase 95 U/L (45-117); Anion Gap 12 (5-15); BUN 8 mg/dL (7-18); CPK Total, Creatine Kinase 34 U/L (26-192); Calcium,Total 9.5 mg/dL (8.5-10.1); Chloride 92 mmol/L (98-107); Creatinine, Serum 0.67 mg/dL (0.55-1.02); EST Glomerular Filtration Rate 109 mL/min (>60); Est Glom Filt Rate - Afr Amer 132 mL/min (>60); Estimated Creatinine Clearance 96.68 ml/min; Globulin 4.3 g/dL (2.2-4.2); Glucose 275 mg/dL (74-106); Sodium Level 131 mmol/L (136-145); Troponin-I HS 12 pg/mL (3.0-54.0)
[2022-08-29 15:53] LABS: Lactic Acid 2.9 mmol/L (0.4-1.9)
[2022-08-29 16:24] LABS: Bacteria 0 SEEN /hpf (None Seen); Mucous, Urine 0 SEEN /hpf (<or=2+); Red Blood Cells-Urine 0 SEEN /hpf (0-5)
[2022-08-29 16:26] LABS: Color, Urine Yellow (Yellow); Glucose, Dipstick 250 mg/dl (Normal); Ketone-Dipstick 5 mg/dl (Negative); Leukocyte Esterase-Dipstick 500 /ul (Negative); Nitrite-Dipstick Negative (Negative); Occult Blood-Urine 150 /ul (Negative); Protein-Dipstick 15 mg/dl (Negative); Urine Bilirubin Dipstick Negative (Negative); Urine Clarity Clear (Clear); Urine Urobilinogen Normal (Normal)
[2022-08-29 16:58] LABS: Squamous Epithelial Cells - UA 0-5 SEEN /hpf (5-10); Transitional Epithelial - Ur 0-5 SEEN /hpf (0-5); White Blood Cells 25-50 SEEN /hpf (0-5)
--- NOTE | 2022-08-29 18:09 | HP.PCM.HOS_ITS ---
HPI - General General Date of Admission: 08/29/22 Date of Service: 08/29/22 Chief Complaint: fever HPI Narrative MANDY RIVERA, is a 32 F with a PMH as outlined who presents via the ED on 08/29/2022 with a complaitn of fever which started on the day of admission. She was given ibuprofen, but fever didnt resolve. Patient's mother stated she had an upset stomach af few days ago, but had not been vomiting; she did have diarrhea. Her mother said she had to turn up her vent oxygen due to low oxygen. Patient is bedbound and on a ventilator. Review of systems is otherwise negative. Vitals in the ED were BP of 117/67, AK of 104, RR of 22 and temp of 98.7F. She was saturating at 98% on the ventilator. CBC shwoed wbc of 14.6, Hb of 13 and platelets of 217. Chemistry showed sodium of 131 with potassium of 4 and bicarb of 27. Lactic acid was 2.9. Urinalysis showed 0 bacteria and showed 25-50 WBC per high-power field. Chest x-ray showed no significant interval change in left basilar atelectasis or scarring. She is being admitted to be managed for SIRS with no clear source of infection. ED doctor spoke to Dr. Bettencourt infectious disease who follows patient today who recommended placing the patient empirically on IV meropenem. [facility] Medical History Allergic rhinitis due to other allergen Amenorrhea Bedbound Bladder disease Bronchiectasis without acute exacerbation Bronchitis Cerebral palsy Chronic respiratory failure Diabetes Dietary restriction History of Clostridium difficile infection History of renal disease Hyperglycemia Irregular menstrual cycle Kidney stones Lactic acid acidosis Mild mental retardation MRSA infection Neuromuscular scoliosis Non-smoker On home oxygen therapy On tube feeding diet Pancreatitis Paraplegia PICC (peripherally inserted central catheter) in place Pneumonia Recurrent UTI Redness of skin Renal calculi Renal calculus or stone Respiratory acidosis Seizure Seizures Severe sepsis Skin tag of vaginal mucosa 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 Thrush Urinary tract infection due to extended-spectrum beta lactamase (ESBL) producing Escherichia coli Ventilator dependent Visual disturbance Vitamin D deficiency Home Medications baclofen 20 mg tablet 30 mg G-tube TID muscle spasms 09/02/13 [History Last Taken 02/24/22] oxcarbazepine 300 mg/5 mL (60 mg/mL) oral suspension (Trileptal) 8 ml G-tube BID seizure 08/28/17 [History Last Taken 02/24/22] diazepam 5 mg/5 mL (1 mg/mL) oral solution 5 mg feeding tube DAILY@1400 spasms 05/20/21 [History Last Taken 02/24/22] diazepam 5 mg/5 mL (1 mg/mL) oral solution 7 mg feeding tube BID spasms 05/20/21 [History Last Taken 02/24/22] guaifenesin 100 mg/5 mL oral liquid 200 mg (10 mL) G-tube Q4H PRN PRN thick secretions #1,000 mL 09/25/21 [Rx Last Taken 02/23/22] ascorbic acid (vitamin C) 500 mg/5 mL oral syrup 500 mg feeding tube BID SUPPLEMENT 12/12/21 [History Last Taken 02/24/22] cholecalciferol (vitamin D3) 50 mcg (2,000 unit) capsule 50 mcg feeding tube DAILY SUPPLEMENT 12/12/21 [History Last Taken 02/24/22] ibuprofen 100 mg/5 mL oral suspension 400 mg PO Q6H PRN Pain 12/12/21 [History Last Taken 02/24/22] miconazole nitrate 2 % vaginal cream (Monistat 7) 1 appful vaginal DAILY PRN YEAST 12/12/21 [History Last Taken 1 Week Ago ~02/17/22] multivitamin-folic acid-herbal no.275 400 mcg-200 mg/30 mL oral liquid 5 ml PO DAILY SUPPLEMENT 12/12/21 [History Last Taken 02/23/22] sodium chloride 0.9 % for nebulization 3 - 6 ml inhalation Q2H PRN Congestion 12/12/21 [History Last Taken 02/23/22] blood sugar diagnostic (True Metrix Pro Test Strip) #400 ea 01/05/22 [Rx Last Taken Unknown] pen needle, diabetic 32 gauge x /32 (BD Ultra-Fine Priyanka Pen Needle) #360 ea 01/05/22 [Rx Last Taken Unknown] levalbuterol HCl 1.25 mg/3 mL solution for nebulization 1.25 mg (3 mL) inhalation BID BREATHING #90 mL 01/16/22 [Rx Last Taken 02/23/22] naphazoline 0.012 % eye drops 2 drp ophthalmic (eye) DAILY PRN allergies 02/24/22 [History Last Taken 02/23/22] acetaminophen 160 mg/5 mL oral liquid 640 mg PO Q6H PRN pain/fever 03/31/22 [History Last Taken Unknown] acidophilus 25 million cell-pectin, citrus 100 mg tablet 1 tab G-tube DAILY supplement 03/31/22 [History Last Taken Unknown] bismuth subsalicylate 262 mg/15 mL oral suspension (Pepto-Bismol) 524 mg PO Q30M PRN antidiarrheal 03/31/22 [History Last Taken Unknown] carbamide peroxide 6.5 % ear drops (Debrox) 5 drp EACH EAR DAILY PRN Ear Wax 03/31/22 [History Last Taken Unknown] fluconazole 10 mg/mL oral suspension 150 mg feeding tube PRN PRN yeast 03/31/22 [History Last Taken Unknown] fluticasone propionate 44 mcg/actuation HFA aerosol inhaler (Flovent HFA) 2 puff inhalation BID Check with primary doctor 03/31/22 [History Last Taken Unknown] magnesium hydroxide 400 mg/5 mL oral suspension (Milk of Magnesia) 15 - 60 ml PO DAILY PRN Constipation 03/31/22 [History Last Taken Unknown] nystatin 100,000 unit/gram topical powder 1 applic topical BID PRN redness 03/31/22 [History Last Taken Unknown] levalbuterol HCl 1.25 mg/3 mL solution for nebulization (Xopenex) 1.25 mg (3 mL) inhalation Q4H PRN sob #150 mL 06/17/22 [Rx Last Taken Unknown] lancets 30 gauge (Embrace Lancets) #200 ea 07/22/22 [Rx Last Taken Unknown] ferrous sulfate 15 mg iron (75 mg)/mL oral syringe (ORAL USE) 5 ml feeding tube .Mon, Luann supplement 08/24/22 [History Last Taken Unknown] methenamine hippurate 1 gram tablet (Hiprex) 1 g feeding tube BID infection prevention 08/24/22 [History Last Taken Unknown] montelukast 10 mg tablet 10 mg G-tube QPM PRN Allergic Reaction 08/24/22 [History Last Taken Unknown] docusate sodium 60 mg/15 mL oral syrup 60 mg feeding tube DAILY Check with primary doctor 08/29/22 [History Last Taken Unknown] insulin aspart U-100 100 unit/mL (3 mL) subcutaneous pen 9 unit subcut 4X/DAY Diabetes 08/29/22 [History Last Taken Unknown] insulin glargine 100 unit/mL (3 mL) subcutaneous pen (Basaglar KwikPen U-100 Insulin) 20 unit subcut QPM Check with primary doctor 08/29/22 [History Last Taken Unknown] nutritional supplements 1 ea PO BID Check with primary doctor 08/29/22 [History Last Taken Unknown] Allergy/AdvReac Type Severity Reaction Status Date / Time linezolid Allergy Severe Other - Verified 08/29/22 13:03 seizure & coma vancomycin Allergy Severe Other - Verified 08/29/22 13:03 kidney failure tobramycin Allergy Intermediate Other - Verified 08/29/22 13:03 turned beet red nafcillin Allergy Mild Rash Verified 08/29/22 13:03 benzoin Allergy Unknown Rash Verified 08/29/22 13:03 milk Allergy Unknown Other Verified 08/29/22 13:03 soy Allergy Unknown Other Verified 08/29/22 13:03 polyethylene glycol 3350 AdvReac Unknown Hives Verified 08/29/22 13:03 [From Miralax] Family History Grandmother Cancer maternal Other Adopted Surgical History derotatox ostomies eyes straightened Gastrostomy tube in place H/O spinal fusion Presence of intrathecal baclofen pump rods to back Status post Jorje fundoplication surgery on gland under tongue tendonatomies Tracheostomy status Social History household members: other details: Mother and is vent dependent housing: house Smoking Status: Never smoker second hand exposure: No alcohol intake: never substance use type: does not use ROS ROS Narrative taken from mother Review of Systems ROS Unobtainable: due to encephalopathy Constitutional Constitutional: Reports fever(s); Denies chills, fatigue, malaise or weakness Eyes Eyes: Denies change in vision ENT HEENT: Reports nasal discharge; Denies dysphagia, headache(s) or sore throat Cardiovascular Cardiovascular: Denies chest pain, dyspnea on exertion, edema, lightheadedness, orthopnea, palpitations, paroxysmal nocturnal dyspnea or rapid heart rate Respiratory/Chest Respiratory/Chest: Reports other Details: hypoxia ; Denies cough, productive cough or shortness of breath at rest Gastrointestinal Gastrointestinal: Reports diarrhea; Denies constipation, nausea or vomiting Genitourinary Genitourinary: Reports dysuria Vital Signs Vital Signs Vital Signs: 08/29/22 13:03 08/29/22 13:07 08/29/22 13:07 Temperature 100.9 F H Temperature Source Temporal Pulse Rate 138 H 139 H Respiratory Rate 14 14 Respiratory Effort Normal Blood Pressure 134/82 H 134/82 H Blood Pressure Mean 99 99 Pulse Ox 97 98 Oxygen Delivery Method Mechanical Ventilator Mechanical Ventilator Oxygen Flow Rate (L/min) Fraction of Inspired Oxygen (FIO2) 08/29/22 15:08 08/29/22 15:48 08/29/22 16:04 Temperature 99.4 F H 99.4 F H Temperature Source Temporal Temporal Pulse Rate 126 H 129 H Respiratory Rate 27 H 27 H Respiratory Effort Blood Pressure 137/80 H 122/80 H Blood Pressure Mean 99 94 Pulse Ox 98 99 99 Oxygen Delivery Method Mechanical Ventilator Mechanical Ventilator Room Air Oxygen Flow Rate (L/min) 5 5 Fraction of Inspired Oxygen (FIO2) 100 08/29/22 17:28 Temperature Temperature Source Pulse Rate 106 H Respiratory Rate 15 Respiratory Effort Blood Pressure 122/71 H Blood Pressure Mean 88 Pulse Ox 99 Oxygen Delivery Method Room Air Oxygen Flow Rate (L/min) Fraction of Inspired Oxygen (FIO2) Weight Weight: 112 lb Body Mass Index (BMI) 27.0 Physical Exam Narrative intubated, on vent via trach Const alert Constitutional Narrative: non communicative HEENT normocephalic Resp Resp Narrative: mildly diminished breath sounds bibasally, no wheezes or crackles. on vent chronically via her tracheostomy Cardio regular rate, regular rhythm, S1 normal heart sound, S2 normal heart sound and no murmurs GI normal to inspection, nondistended, normoactive bowel sounds, soft to palpation and non-tender GI Narrative: PEG tube in place Extremity Extremity Narrative: contractures of lower extremities Results Lab / Micro Data Result Diagrams: 08/30/22 04:29 08/30/22 04:29 Labs: Laboratory Results - last 24 hr 08/29/22 14:49: WBC 14.6 H, RBC 4.02 L, Hgb 13.0, Hct 37.3, MCV 92.8, MCH 32.3 H , MCHC 34.9, RDW Std Deviation 40.4, RDW Coeff of Anne 11.9, Plt Count 217, MPV 9.7, Immature Gran % (Auto) 0.400, Neut % (Auto) 86.5 H, Lymph % (Auto) 4.3 L, M lauren % (Auto) 8.6, Eos % (Auto) 0.1, Baso % (Auto) 0.1, Absolute Neuts (auto) 12.6 H, Absolute Lymphs (auto) 0.63 L, Nucleated RBC % 0 08/29/22 14:49: PT 13.5, INR 1.1, APTT 29.2 08/29/22 14:49: Sodium 131 L, Potassium 4.0, Chloride 92 L, Carbon Dioxide 27.0, Anion Gap 12, BUN 8, Creatinine 0.67, Estim Creat Clear Calc 96.68, Est GFR (MDRD) Af Amer 132, Est GFR (MDRD) Non-Af 109, BUN/Creatinine Ratio 12.0, Glucose 275 H, Calcium 9.5, Total Bilirubin 0.30, AST 21, ALT 43, Alkaline Phosphatase 95, Total Creatine Kinase 34, Troponin I High Sens 12, Total Protein 8.0, Albumin 3.7, Globulin 4.3 H, Albumin/Globulin Ratio 0.9 08/29/22 14:49: Lactic Acid 2.9 H* 08/29/22 16:20: Urine Color Yellow, Urine Clarity Clear, Urine pH 7.0, Ur Specific [place] 1.010, Urine Protein 15 H, Urine Glucose (UA) 250 H, Urine Ketones 5 H, Urine Occult Blood 150 H, Urine Nitrite Negative, Urine Bilirubin Negative, Urine Urobilinogen Normal, Ur Leukocyte Esterase 500 H, Urine RBC 0 SEEN, Urine WBC 25-50 SEEN, Ur Squamous Epith Cells 0-5 SEEN, Ur Transition Epith Cell 0-5 SEEN, Urine Bacteria 0 SEEN, Urine Mucus 0 SEEN Micro: Microbiology 08/29/22 16:52 Mucosa - Nose Influenza Types A,B Direct FA (MESHA) - Final 08/29/22 15:23 Nasal Secretion SARS-CoV-2 Antigen (Rapid) - Final Radiology Impression Chest X-Ray 08/29/22 14:27 IMPRESSION: No significant interval change in left basilar atelectasis or scarring. Electronically Signed: Lilibeth Blount MD at 15:00 EST , Assessment & Plan Assessment/Plan (1) SIRS (systemic inflammatory response syndrome): PLAN: Plan #SIRS criteria * No clear source of infection. Urinalysis does not show any evidence of UTI. * Will get blood and urine cultures. * ID recommending initiating IV meropenem to cover her empirically while cultures are pending. * Hydrate gently with IV fluids. * #Chronic hypoxic respiratory failure: Due to spastic paraplegia. On ventilator chronically via trach. 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 #Type 2 diabetes mellitus: On tube feeding. Insulin sliding scale. Accu-Cheks 6 hourly. DVT prophylaxis: Lovenox Code status: DNRCCA with intubation. Charges/Coding Visit Charges Inpatient E&M: 50724 Init Hosp L3
[2022-08-29 18:54] LABS: Reflex Lactate? Y
[2022-08-29] MEDS: 0.9% Normal Saline 1,000 ML 125 ML IV (19:00)
[2022-08-29 20:19] LABS: Lactic Acid 1.1 mmol/L (0.4-1.9)
--- NOTE | 2022-08-29 22:09 | NURSING ---
Patient's father is at bedside, does a lot of patient care- giving patient tube feeds from home-gave home medications tonight. This was approved by the doctor.
[2022-08-30] VITALS (18 sets, daily range): BP systolic 115–142; BP diastolic 60–78; PULSE 91–126; RESP 15–24; TEMP 36.7–37.7; O2SAT 93–100
[2022-08-30 00:21] LABS: Bedside Glucose 139 mg/dL (74-106)
[2022-08-30] MEDS: 0.9% Normal Saline 1,000 ML 125 ML IV (02:04)
[2022-08-30] MEDS: Acetaminophen 650 MG/20 ML UDC GT ×4 (04:29→23:15)
[2022-08-30 04:57] LABS: Absolute Lymphocyte Count 0.81 X10^3/uL (0.83-4.51); Absolute Neutrophil Count 9.4 X10^3/uL (2.0-7.7); Basophil# 0.02 X10^3/uL; Basophil% 0.2 % (0-1); Eosinophil# 0.02 X10^3/uL; Eosinophils% 0.2 % (0-5); Hematocrit 31.3 % (37-47); Hemoglobin 10.4 g/dL (12.0-15.0); Lymphocyte # 0.81 X10^3/ul (0.83-4.51); Lymphocyte % 6.7 % (19-41); Mean Corp Hgb Conc 33.2 g/dL (32-36); Mean Corpuscular Hgb 32.2 pg (27.0-32.0); Mean Corpuscular Volume 96.9 fL (81-99); Mean Platelet Vol. 9.8 fl (6.2-12.0); Monocyte# 1.65 X10^3/uL; Monocyte% 13.7 % (0-10); NRBC Flagged by Analyzer 0 % (0-5); Neutrophil # 9.43 X10^3/uL (2.7-7.7); Neutrophil % 78.5 % (47-70); POSITIVE DIFFERENTIAL YES; Platelet Count 180 K/mm3 (150-450); RBC Distribution Width CV 12.2 % (11.6-14.6); RBC Distribution Width SD 42.9 fl (35.1-43.9); Red Blood Count 3.23 M/mm3 (4.2-5.4)
[2022-08-30 05:25] LABS: Differential Indicated SCAN CRITERIA MET
[2022-08-30 05:29] LABS: Anion Gap 7 (5-15); BUN 6 mg/dL (7-18); BUN/Creat Ratio 21.6 RATIO (10-20); Calcium,Total 8.7 mg/dL (8.5-10.1); Chloride 108 mmol/L (98-107); Creatinine, Serum 0.28 mg/dL (0.55-1.02); EST Glomerular Filtration Rate 298 mL/min (>60); Est Glom Filt Rate - Afr Amer 361 mL/min (>60); Estimated Creatinine Clearance 231.33 ml/min; Glucose 156 mg/dL (74-106); Potassium 3.7 mmol/L (3.5-5.1); Sodium Level 141 mmol/L (136-145)
[2022-08-30 06:41] LABS: Bedside Glucose 139 mg/dL (74-106)
[2022-08-30] MEDS: Budesonide Respules 0.5 MG/2 ML AMPUL.NEB. INHALATION ×2 (07:10→19:22)
[2022-08-30] MEDS: Albuterol 2.5 MG/3 ML VIAL.NEB. INHALATION ×3 (07:10→19:22)
[2022-08-30] MEDS: diazePAM 2 MG Tablet GT ×2 (07:58→20:14)
[2022-08-30] MEDS: Baclofen 10 MG Tablet 30 MG GT ×3 (07:59→20:14)
[2022-08-30] MEDS: diazePAM 5 MG Tablet GT ×3 (07:59→20:15)
[2022-08-30] MEDS: Multivitamin/Minerals/Iron (9 mg/15 ml) Liquid GT (08:00)
[2022-08-30] MEDS: OXCARBAZEPINE 300 MG/5 ML 8 MG GT ×2 (08:01→20:13)
[2022-08-30] MEDS: Insulin Lispro 100 UNIT/ML INSULN.PEN 9 UNIT SC ×4 (08:05→17:11)
[2022-08-30] MEDS: Enoxaparin 40 MG/0.4 ML Syringe SC (08:07)
[2022-08-30] MEDS: Ascorbic Acid 500 MG Tablet GT ×2 (09:43→20:14)
[2022-08-30] MEDS: Cholecalciferol (VIT D3) 25 MCG TABLET (1,000 UNITS) 50 MCG GT (09:43)
[2022-08-30] MEDS: Juven (unflavored) Packet 1 PACKET GT ×2 (09:44→20:15)
[2022-08-30 10:42] LABS: Differential Comment SCANNED
[2022-08-30] MEDS: Insulin Lispro 100 UNIT/ML INSULN.PEN SC ×2 (11:28→17:10)
[2022-08-30 11:55] LABS: Bedside Glucose 167 mg/dL (74-106)
[2022-08-30 14:41] LABS: Bedside Glucose 188 mg/dL (74-106)
--- NOTE | 2022-08-30 15:43 | PN.HOSP_ITS ---
Subjective Subjective Patient seen and examined. Father was by bedside. He had no acute concerns apart from noting that her face looks slightly swollen. No active events overnight. Objective Data Objective Data Vital Signs: Vital Signs Temp Pulse Resp BP Pulse Ox O2 Del Method O2 Flow Rate 99.4 F H 104 H 15 124/78 H 100 Mechanical Ventilator 3 08/30/22 10:51 08/30/22 15:00 08/30/22 11:24 08/30/22 09:45 08/30/22 09:45 08/30/22 14:00 08/30/22 14:00 FiO2 32 08/29/22 20:48 Oxygen Flow Rate (L/min) 3 Oxygen Delivery Method Mechanical Ventilator Weight: 111 lb 15.917 oz Body Mass Index (BMI) 27.0 Intake & Output: Intake and Output for Last 24 Hours 08/28/22 08/29/22 08/30/22 23:59 23:59 23:59 Intake Total 1999 2143.58 / 2143.58 Balance 1999 2143.58 / 2143.58 Lab / Micro Data Result Diagrams: 08/30/22 04:29 08/30/22 04:29 Labs: Laboratory Results - last 24 hr 08/29/22 14:49: Sodium 131 L, Potassium 4.0, Chloride 92 L, Carbon Dioxide 27.0, Anion Gap 12, BUN 8, Creatinine 0.67, Estim Creat Clear Calc 96.68, Est GFR (MDRD) Af Amer 132, Est GFR (MDRD) Non-Af 109, BUN/Creatinine Ratio 12.0, Glucose 275 H, Calcium 9.5, Total Bilirubin 0.30, AST 21, ALT 43, Alkaline Phosphatase 95, Total Creatine Kinase 34, Troponin I High Sens 12, Total Protein 8.0, Albumin 3.7, Globulin 4.3 H, Albumin/Globulin Ratio 0.9 08/29/22 14:49: Lactic Acid 2.9 H* 08/29/22 16:20: Urine Color Yellow, Urine Clarity Clear, Urine pH 7.0, Ur S pecific [place] 1.010, Urine Protein 15 H, Urine Glucose (UA) 250 H, Urine Ketones 5 H, Urine Occult Blood 150 H, Urine Nitrite Negative, Urine Bilirubin Negative, Urine Urobilinogen Normal, Ur Leukocyte Esterase 500 H, Urine RBC 0 SEEN, Urine WBC 25-50 SEEN, Ur Squamous Epith Cells 0-5 SEEN, Ur Transition Epith Cell 0-5 SEEN, Urine Bacteria 0 SEEN, Urine Mucus 0 SEEN 08/29/22 19:46: Lactic Acid 1.1 08/29/22 23:58: POC Glucose 139 H 08/30/22 04:29: WBC 12.0 H, RBC 3.23 L, Hgb 10.4 L, Hct 31.3 L, MCV 96.9, MCH 32.2 H, MCHC 33.2, RDW Std Deviation 42.9, RDW Coeff of Anne 12.2, Plt Count 180, MPV 9.8, Immature Gran % (Auto) 0.700, Neut % (Auto) 78.5 H, Lymph % (Auto) 6.7 L, [place] % (Auto) 13.7 H, Eos % (Auto) 0.2, Baso % (Auto) 0.2, Absolute Neuts (auto) 9.4 H, Absolute Lymphs (auto) 0.81 L, Nucleated RBC % 0, Differential Comment SCANNED, Diff Path Review January08/30/22 04:29: Sodium 141, Potassium 3.7, Chloride 108 H, Carbon Dioxide 26.0, Anion Gap 7, BUN 6 L, Creatinine 0.28 L, Estim Creat Clear Calc 231.33, Est GFR (MDRD) Af Amer 361, Est GFR (MDRD) Non-Af 298, BUN/Creatinine Ratio 21.6 H, Glucose 156 H, Calcium 8.7 08/30/22 06:15: POC Glucose 139 H 08/30/22 11:26: POC Glucose 167 H 08/30/22 14:18: POC Glucose 188 H Micro: Microbiology 08/29/22 15:09 Stool C. difficile GDH Antigen & Toxins - Final 08/29/22 15:09 Stool C. difficile DNA Amplification - Final 08/29/22 16:20 Urine Catheter - Catheter Urine Culture - Preliminary Presumptive E. coli 08/29/22 18:38 Mucosa - Nasopharyngeal Respiratory Panel (PCR) - Final 08/29/22 16:52 Mucosa - Nose Influenza Types A,B Direct FA (MESHA) - Final 08/29/22 15:23 Nasal Secretion SARS-CoV-2 Antigen (Rapid) - Final Physical Exam Narrative intubated, on vent via trach Const alert Constitutional Narrative: non communicative HEENT normocephalic and head/scalp atraumatic HEENT Narrative: no visible facial swelling Mouth: dry mucous membranes Eyes PERRL Neck no lymphadenopathy Resp Resp Narrative: mildly diminished breath sounds bibasally, mild wheezing, no crackles. on vent chronically via her tracheostomy Cardio regular rhythm, S1 normal heart sound, S2 normal heart sound and no murmurs Cardio Narrative: tachycardia GI normal to inspection, nondistended, normoactive bowel sounds, soft to palpation and non-tender GI Narrative: PEG tube in place Extremity Extremity Narrative: chronic contractures of lower extremities Neuro Neuro Narrative: on vent via trach, alert but nonverbal due to severe spastic paraplegia Assessment & Plan Assessment/Plan (1) SIRS (systemic inflammatory response syndrome): PLAN: Plan #SIRS criteria due to probable pneumonia * father concerned she is breathing fast; also has bilateral crackles and mild wheezing * blood and urine cultures pending * will order sputum cultures * on IV meropenem, per ID recommendation * ID consulted; to evaluate tomorrow * continue gentle hydration with IVF. * * * #Chronic hypoxic respiratory failure: Due to spastic paraplegia. On ventilator chronically via trach. 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 #Type 2 diabetes mellitus: On tube feeding. Insulin sliding scale. Accu-Cheks 6 hourly. DVT prophylaxis: Lovenox Code status: DNRCCA with intubation. Charges/Coding Visit Charges Inpatient E&M: 91606 Subs Hosp L2
[2022-08-30 17:35] LABS: Bedside Glucose 205 mg/dL (74-106)
[2022-08-30] MEDS: 0.9% Saline Lock 10 ML Syringe IV (20:12)
[2022-08-30 21:05] LABS: Bedside Glucose 157 mg/dL (74-106)
[2022-08-31] VITALS (11 sets, daily range): BP systolic 106–133; BP diastolic 60–96; PULSE 87–116; RESP 14–21; TEMP 36.6–37; O2SAT 98–100
[2022-08-31 05:47] LABS: Absolute Lymphocyte Count 1.51 X10^3/uL (0.83-4.51); Absolute Neutrophil Count 7.4 X10^3/uL (2.0-7.7); Basophil# 0.02 X10^3/uL; Basophil% 0.2 % (0-1); Hematocrit 29.6 % (37-47); Hemoglobin 9.7 g/dL (12.0-15.0); Lymphocyte # 1.51 X10^3/ul (0.83-4.51); Lymphocyte % 14.7 % (19-41); Mean Corp Hgb Conc 32.8 g/dL (32-36); Mean Corpuscular Volume 97.7 fL (81-99); Mean Platelet Vol. 10.4 fl (6.2-12.0); Monocyte# 1.21 X10^3/uL; Monocyte% 11.8 % (0-10); NRBC Flagged by Analyzer 0 % (0-5); Neutrophil # 7.37 X10^3/uL (2.7-7.7); Neutrophil % 71.8 % (47-70); Platelet Count 207 K/mm3 (150-450); RBC Distribution Width CV 12.5 % (11.6-14.6); RBC Distribution Width SD 45.1 fl (35.1-43.9); Red Blood Count 3.03 M/mm3 (4.2-5.4); White Blood Count 10.3 K/mm3 (4.4-11.0)
[2022-08-31 06:06] LABS: Anion Gap 4 (5-15); BUN 15 mg/dL (7-18); BUN/Creat Ratio 67.9 RATIO (10-20); Calcium,Total 9.3 mg/dL (8.5-10.1); Chloride 109 mmol/L (98-107); Creatinine, Serum 0.22 mg/dL (0.55-1.02); EST Glomerular Filtration Rate 389 mL/min (>60); Est Glom Filt Rate - Afr Amer 470 mL/min (>60); Glucose 127 mg/dL (74-106); Potassium 3.4 mmol/L (3.5-5.1); Sodium Level 142 mmol/L (136-145)
[2022-08-31 06:25] LABS: Bedside Glucose 123 mg/dL (74-106)
[2022-08-31] MEDS: Albuterol 2.5 MG/3 ML VIAL.NEB. INHALATION ×2 (07:08→19:11)
[2022-08-31] MEDS: Budesonide Respules 0.5 MG/2 ML AMPUL.NEB. INHALATION ×2 (07:08→19:11)
[2022-08-31] MEDS: OXCARBAZEPINE 300 MG/5 ML 8 MG GT ×2 (08:14→21:14)
[2022-08-31] MEDS: Enoxaparin 40 MG/0.4 ML Syringe SC (08:15)
[2022-08-31] MEDS: diazePAM 5 MG Tablet GT ×3 (08:15→21:14)
[2022-08-31] MEDS: Ascorbic Acid 500 MG Tablet GT ×2 (08:15→21:14)
[2022-08-31] MEDS: Baclofen 10 MG Tablet 30 MG GT ×3 (08:15→21:14)
[2022-08-31] MEDS: diazePAM 2 MG Tablet GT ×2 (08:15→21:14)
[2022-08-31] MEDS: Cholecalciferol (VIT D3) 25 MCG TABLET (1,000 UNITS) 50 MCG GT (08:15)
[2022-08-31] MEDS: Juven (unflavored) Packet 1 PACKET GT ×2 (08:15→21:14)
[2022-08-31] MEDS: Multivitamin/Minerals/Iron (9 mg/15 ml) Liquid GT (08:15)
[2022-08-31] MEDS: Insulin Lispro 100 UNIT/ML INSULN.PEN 9 UNIT SC ×4 (08:16→17:33)
[2022-08-31] MEDS: Ferrous Sulfate 300 MG/5 ML UDC PO (08:16)
[2022-08-31] MEDS: Potassium Chloride 20mEq/100mL 20 MEQ/100 ML IV.SOLN. 50 MEQ IV BOLUS ×2 (09:38→11:58)
[2022-08-31] MEDS: Insulin Lispro 100 UNIT/ML INSULN.PEN SC ×2 (11:16→17:34)
[2022-08-31 12:00] LABS: Bedside Glucose 177 mg/dL (74-106)
--- NOTE | 2022-08-31 12:16 | PCM.PN.HOSP ---
Subjective Subjective Follow-up on acute recurrent UTI/acute recurrent C. difficile: Patient was seen and examined. Mother was at the bedside. History taken from mother states that patient has thick offensive urine. She is also had recurrent diarrhea since being admitted. Stated that patient appears to be breathing a lot faster than usual. Objective Data Objective Data Vital Signs: Vital Signs Temp Pulse Resp BP Pulse Ox O2 Del Method O2 Flow Rate 97.8 F 87 20 H 133/96 H 100 Mechanical Ventilator 3 08/31/22 09:00 08/31/22 09:00 08/31/22 09:00 08/31/22 09:00 08/31/22 09:00 08/31/22 10:24 08/31/22 10:24 FiO2 32 08/31/22 09:00 Oxygen Flow Rate (L/min) 3 Oxygen Delivery Method Mechanical Ventilator Weight: 50.8 kg Body Mass Index (BMI) 27.0 Intake & Output: Intake and Output for Last 24 Hours 08/29/22 08/30/22 08/31/22 23:59 23:59 23:59 Intake Total 1999 2263.58 / 2263.58 408 / 408 Balance 1999 2263.58 / 2263.58 408 / 408 Lab / Micro Data Result Diagrams: 08/31/22 04:51 08/31/22 04:51 Labs: Laboratory Results - last 24 hr 08/30/22 14:18: POC Glucose 188 H 08/30/22 17:00: POC Glucose 205 H 08/30/22 20:10: POC Glucose 157 H 08/31/22 04:51: WBC 10.3, RBC 3.03 L, Hgb 9.7 L, Hct 29.6 L, MCV 97.7, MCH 32.0, MCHC 32.8, RDW Std Deviation 45.1 H, RDW Coeff of Anne 12.5, Plt Count 207, MPV 10.4, Immature Gran % (Auto) 0.500, Neut % (Auto) 71.8 H, Lymph % (Auto) 14.7 L, [place] % (Auto) 11.8 H, Eos % (Auto) 1.0, Baso % (Auto) 0.2, Absolute Neuts (auto) 7.4, Absolute Lymphs (auto) 1.51, Nucleated RBC % 0 08/31/22 04:51: Sodium 142, Potassium 3.4 L, Chloride 109 H, Carbon Dioxide 29.0, Anion Gap 4 L, BUN 15, Creatinine 0.22 L, Estim Creat Clear Calc 294.41, Est GFR (MDRD) Af Amer 470, Est GFR (MDRD) Non-Af 389, BUN/Creatinine Ratio 67.9 H, Glucose 127 H, Calcium 9.3 08/31/22 06:03: POC Glucose 123 H 08/31/22 11:08: POC Glucose 177 H Micro: Microbiology 08/29/22 16:20 Urine Catheter - Catheter Urine Culture - Preliminary Presumptive E. coli 08/29/22 15:09 Stool Enteric Bacteriology - Final 08/29/22 15:09 Stool C. difficile GDH Antigen & Toxins - Final 08/29/22 15:09 Stool C. difficile DNA Amplification - Final 08/29/22 18:38 Mucosa - Nasopharyngeal Respiratory Panel (PCR) - Final 08/29/22 16:52 Mucosa - Nose Influenza Types A,B Direct FA (MESHA) - Final 08/29/22 15:23 Nasal Secretion SARS-CoV-2 Antigen (Rapid) - Final Physical Exam Narrative Physical exam: General: Short stature, lethargic, nonverbal, noncommunicative, cerebral palsy HEENT: Atraumatic Oral: Moist Mucosa Neck: Supple Lungs: Diminished to auscultation Cardiovascular: HS I+II, regular, no murmurs Abdomen: Bowel Sounds Present, G-tube present, soft, Non Tender Extremities: Wasting of the lower extremity, no edema, discussed however the right hip, contractures of the upper and lower extremities as well as the neck Assessment & Plan Assessment/Plan (1) SIRS (systemic inflammatory response syndrome): PLAN: Plan 1. Acute recurrent E. coli UTI, history of ESBL UTI Continue on meropenem 2. Acute diarrhea, history of recurrent C. difficile, Infectious disease consulted, continue on oral vancomycin 3. Hypokalemia secondary to #2, replaced, recheck in a.m. 4. Chronic hypoxic respiratory failure, on chronic vent, pulmonology consulted 4. Spastic quadriplegic cerebral palsy/seizure disorder, continue on baclofen, diazepam and Trileptal. 5. Type 2 diabetes mellitus, blood sugars are fairly controlled, continue on home insulin regimen with insulin sliding scale 6. DVT prophylaxis- Lovenox SC Charges/Coding Visit Charges Inpatient E&M: 80420 Subs Hosp L3
[2022-08-31] MEDS: 0.9% Saline Lock 10 ML Syringe IV (13:26)
[2022-08-31] MEDS: Furosemide 20 MG/2 ML VIAL IV (13:26)
--- NOTE | 2022-08-31 14:00 | CASEMGMT ---
Complex Still Operator Helper to pt's room in attempt to complete assessment. Medical personal in room speaking with pt. Assessment deferred at this time. RN CM will attempt at a later time.
--- NOTE | 2022-08-31 14:07 | CON.PCM.ID_ITS ---
Assessment & Plan Assessment/Plan (1) UTI (urinary tract infection): PLAN: H/o esbl ecoli uti. On snow. Will order sputum cx. Will start vanc for recurrent cdiff. Will follow, thank you (2) Recurrent Clostridioides difficile diarrhea: HPI Consult Data Date of Consult: 08/31/22 HPI Narrative Reason for Consultation: fever HPI Narrative: MANDY RIVERA, is a 32 F with cerebral palsy, on chronic vent via trach, h/o recurrent esbl uti and cdiff, presented 08/29 to ED with one day h/o fever, flushing, tachypnea, mildly increased trach secretions. Came to ED, admitted on meropenem. Still with some fever, overall improving. Now increased diarrhea per her mother. ROS unobtainable due to mental status. [facility]LY [facility], LATER [facility] Medical History Allergic rhinitis due to other allergen Amenorrhea Bedbound Bladder disease Bronchiectasis without acute exacerbation Bronchitis Cerebral palsy Chronic respiratory failure Diabetes Dietary restriction History of Clostridium difficile infection History of renal disease Hyperglycemia Irregular menstrual cycle Kidney stones Lactic acid acidosis Mild mental retardation MRSA infection Neuromuscular scoliosis Non-smoker On home oxygen therapy On tube feeding diet Pancreatitis Paraplegia PICC (peripherally inserted central catheter) in place Pneumonia Recurrent UTI Redness of skin Renal calculi Renal calculus or stone Respiratory acidosis Seizure Seizures Severe sepsis Skin tag of vaginal mucosa 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 Thrush Urinary tract infection due to extended-spectrum beta lactamase (ESBL) producing Escherichia coli Ventilator dependent Visual disturbance Vitamin D deficiency Home Medications baclofen 20 mg tablet 30 mg G-tube TID muscle spasms 09/02/13 [History Last Taken 02/24/22] oxcarbazepine 300 mg/5 mL (60 mg/mL) oral suspension (Trileptal) 8 ml G-tube BID seizure 08/28/17 [History Last Taken 02/24/22] diazepam 5 mg/5 mL (1 mg/mL) oral solution 5 mg feeding tube DAILY@1400 spasms 05/20/21 [History Last Taken 02/24/22] diazepam 5 mg/5 mL (1 mg/mL) oral solution 7 mg feeding tube BID spasms 05/20/21 [History Last Taken 02/24/22] guaifenesin 100 mg/5 mL oral liquid 200 mg (10 mL) G-tube Q4H PRN PRN thick secretions #1,000 mL 09/25/21 [Rx Last Taken 02/23/22] ascorbic acid (vitamin C) 500 mg/5 mL oral syrup 500 mg feeding tube BID SUPPLEMENT 12/12/21 [History Last Taken 02/24/22] cholecalciferol (vitamin D3) 50 mcg (2,000 unit) capsule 50 mcg feeding tube DAILY SUPPLEMENT 12/12/21 [History Last Taken 02/24/22] ibuprofen 100 mg/5 mL oral suspension 400 mg PO Q6H PRN Pain 12/12/21 [History Last Taken 02/24/22] miconazole nitrate 2 % vaginal cream (Monistat 7) 1 appful vaginal DAILY PRN YEAST 12/12/21 [History Last Taken 1 Week Ago ~02/17/22] multivitamin-folic acid-herbal no.275 400 mcg-200 mg/30 mL oral liquid 5 ml PO DAILY SUPPLEMENT 12/12/21 [History Last Taken 02/23/22] sodium chloride 0.9 % for nebulization 3 - 6 ml inhalation Q2H PRN Congestion 12/12/21 [History Last Taken 02/23/22] blood sugar diagnostic (True Metrix Pro Test Strip) #400 ea 01/05/22 [Rx Last Taken Unknown] pen needle, diabetic 32 gauge x 5/32 (BD Ultra-Fine Priyanka Pen Needle) #360 ea 01/05/22 [Rx Last Taken Unknown] levalbuterol HCl 1.25 mg/3 mL solution for nebulization 1.25 mg (3 mL) inhalation BID BREATHING #90 mL 01/16/22 [Rx Last Taken 02/23/22] naphazoline 0.012 % eye drops 2 drp ophthalmic (eye) DAILY PRN allergies 02/24/22 [History Last Taken 02/23/22] acetaminophen 160 mg/5 mL oral liquid 640 mg PO Q6H PRN pain/fever 03/31/22 [History Last Taken Unknown] acidophilus 25 million cell-pectin, citrus 100 mg tablet 1 tab G-tube DAILY supplement 03/31/22 [History Last Taken Unknown] bismuth subsalicylate 262 mg/15 mL oral suspension (Pepto-Bismol) 524 mg PO Q30M PRN antidiarrheal 03/31/22 [History Last Taken Unknown] carbamide peroxide 6.5 % ear drops (Debrox) 5 drp EACH EAR DAILY PRN Ear Wax 03/31/22 [History Last Taken Unknown] fluconazole 10 mg/mL oral suspension 150 mg feeding tube PRN PRN yeast 03/31/22 [History Last Taken Unknown] fluticasone propionate 44 mcg/actuation HFA aerosol inhaler (Flovent HFA) 2 puff inhalation BID Check with primary doctor 03/31/22 [History Last Taken Unknown] magnesium hydroxide 400 mg/5 mL oral suspension (Milk of Magnesia) 15 - 60 ml PO DAILY PRN Constipation 03/31/22 [History Last Taken Unknown] nystatin 100,000 unit/gram topical powder 1 applic topical BID PRN redness 03/31/22 [History Last Taken Unknown] levalbuterol HCl 1.25 mg/3 mL solution for nebulization (Xopenex) 1.25 mg (3 mL) inhalation Q4H PRN sob #150 mL 06/17/22 [Rx Last Taken Unknown] lancets 30 gauge (Embrace Lancets) #200 ea 07/22/22 [Rx Last Taken Unknown] ferrous sulfate 15 mg iron (75 mg)/mL oral syringe (ORAL USE) 5 ml feeding tube .Mon, Luann supplement 08/24/22 [History Last Taken Unknown] methenamine hippurate 1 gram tablet (Hiprex) 1 g feeding tube BID infection prevention 08/24/22 [History Last Taken Unknown] montelukast 10 mg tablet 10 mg G-tube QPM PRN Allergic Reaction 08/24/22 [History Last Taken Unknown] docusate sodium 60 mg/15 mL oral syrup 60 mg feeding tube DAILY Check with primary doctor 08/29/22 [History Last Taken Unknown] insulin aspart U-100 100 unit/mL (3 mL) subcutaneous pen 9 unit subcut 4X/DAY Diabetes 08/29/22 [History Last Taken Unknown] insulin glargine 100 unit/mL (3 mL) subcutaneous pen (Basaglar KwikPen U-100 Insulin) 20 unit subcut QPM Check with primary doctor 08/29/22 [History Last Taken Unknown] nutritional supplements 1 ea PO BID Check with primary doctor 08/29/22 [History Last Taken Unknown] Allergy/AdvReac Type Severity Reaction Status Date / Time linezolid Allergy Severe Other - Verified 08/29/22 13:03 seizure & coma vancomycin Allergy Severe Other - Verified 08/29/22 13:03 kidney failure tobramycin Allergy Intermediate Other - Verified 08/29/22 13:03 turned beet red nafcillin Allergy Mild Rash Verified 08/29/22 13:03 benzoin Allergy Unknown Rash Verified 08/29/22 13:03 milk Allergy Unknown Other Verified 08/29/22 13:03 soy Allergy Unknown Other Verified 08/29/22 13:03 polyethylene glycol 3350 AdvReac Unknown Hives Verified 08/29/22 13:03 [From Miralax] Family History Grandmother Cancer maternal Other Adopted Surgical History derotatox ostomies eyes straightened Gastrostomy tube in place H/O spinal fusion Presence of intrathecal baclofen pump rods to back Status post Jorje fundoplication surgery on gland under tongue tendonatomies Tracheostomy status Social History household members: other details: Mother and is vent dependent housing: house Smoking Status: Never smoker second hand exposure: No alcohol intake: never substance use type: does not use Physical Exam Const Constitutional Narrative: ill appearing, flushed General Appearance: lethargic HEENT head/scalp atraumatic Eyes PERRL and EOMs intact bilaterally Neck supple and No nodes Resp Effort and Inspection: tachypneic Auscultation: wheezes Cardio regular rate and regular rhythm GI soft to palpation, non-tender and non-distended Extremity General Extremity: Negative for edema Skin no rashes or lesions noted Lab / Micro Data Attestation: I reviewed the patient's lab results. Result Diagrams: 08/31/22 04:51 08/31/22 04:51 Labs: Laboratory Results - last 24 hr 08/30/22 14:18: POC Glucose 188 H 08/30/22 17:00: POC Glucose 205 H 08/30/22 20:10: POC Glucose 157 H 08/31/22 04:51: WBC 10.3, RBC 3.03 L, Hgb 9.7 L, Hct 29.6 L, MCV 97.7, MCH 32.0, MCHC 32.8, RDW Std Deviation 45.1 H, RDW Coeff of Nane 12.5, Plt Count 207, MPV 10.4, Immature Gran % (Auto) 0.500, Neut % (Auto) 71.8 H, Lymph % (Auto) 14.7 L, [place] % (Auto) 11.8 H, Eos % (Auto) 1.0, Baso % (Auto) 0.2, Absolute Neuts (auto) 7.4, Absolute Lymphs (auto) 1.51, Nucleated RBC % 0 08/31/22 04:51: Sodium 142, Potassium 3.4 L, Chloride 109 H, Carbon Dioxide 29.0, Anion Gap 4 L, BUN 15, Creatinine 0.22 L, Estim Creat Clear Calc 294.41, Est GFR (MDRD) Af Amer 470, Est GFR (MDRD) Non-Af 389, BUN/Creatinine Ratio 67.9 H, Glucose 127 H, Calcium 9.3 08/31/22 06:03: POC Glucose 123 H 08/31/22 11:08: POC Glucose 177 H Micro: Microbiology 08/29/22 16:20 Urine Catheter - Catheter Urine Culture - Preliminary Presumptive E. coli 08/29/22 15:09 Stool Enteric Bacteriology - Final 08/29/22 15:09 Stool C. difficile GDH Antigen & Toxins - Final 08/29/22 15:09 Stool C. difficile DNA Amplification - Final
[2022-08-31 14:08] LABS: Pathologist Review Reviewed
[2022-08-31] MEDS: Acetaminophen 650 MG/20 ML UDC GT (14:13)
[2022-08-31 14:36] LABS: Bedside Glucose 166 mg/dL (74-106)
--- NOTE | 2022-08-31 14:36 | EX.PCM.CONCC ---
Assessment & Plan Assessment/Plan (1) SIRS (systemic inflammatory response syndrome): (2) Bronchiectasis without acute exacerbation: (3) Chronic respiratory failure: QUALIFIERS: Respiratory failure complication: hypoxia Qualified Code(s): J96.11 - Chronic respiratory failure with hypoxia PLAN: Plan RECOMMENDATIONS: 1. Add sputum culture 2. Antibiotics per infectious disease 3. Consider empiric contact precautions given history of ESBL and C. difficile 4. Okay to leave ventilator at current settings 5. Wean FiO2 as tolerated 6. Electrolyte supplementation as indicated IMPRESSSIONS: 1.??SIRS I do suspect that the patient's presenting symptoms were likely secondary to recurrent urinary tract source of infection or possible pneumonia.? Clinical suspicion is that the left lower lobe atelectasis is chronic and not the etiology.? Patient does not have any indication of endorgan damage at this time except for a slightly elevated lactate. Patient is currently on meropenem, which would be appropriate given history of ESBL. ID has been consulted. Patient also has a history of C. difficile colitis and is on p.o. vanc.? Patient does not appear to have an infiltrate on chest x-ray, but this is difficult to interpret in the settings of severe contractures. Would obtain a sputum culture. 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 Patient would be at risk for MDRO organisms.? No change in ventilator settings would be required. Tachypnea appears to be secondary to fluid in the circuit. HPI Consult Data Date of Consult: 08/31/22 HPI Narrative Reason for Consultation: Chronic respiratory failure HPI Narrative: MANDY RIVERA is a 32 F, with past medical history listed below and well-known to me from the outpatient office, who presented to [facility] on 08/29/2022 secondary to the development of fever to 102 ?F. Patient reportedly had had increased secretions for the previous 24 to 48 hours. Patient was treated with ibuprofen by her mother with marginal improvement. Patient has had some watery diarrhea with no reported melena or hematochezia. Patient does have a history of C. difficile colitis and ESBL UTIs in the past and the mother was concerned that this had recurred. Patient is on a chronic ventilator at baseline and there has been noted some increased secretions recently. Patient did have to go from a 3 L baseline bleed of oxygen to 5 L to maintain saturations. In the ER, patient was noted to be febrile at 100.9 ?F, tachycardic at 139 bpm and normotensive. Laboratory work-up showed a white blood cell count of 14.6, hemoglobin of 13 and platelets of 217. Coagulation studies were within normal limits. Chemistries were significant for an elevated bicarbonate of 27, glucose of 275 and a lactate of 2.9. Urinalysis did show elevated leukocyte esterase, but no nitrites. Chest x-ray is difficult to interpret given contractures, but did not appear to have any acute infiltrates. Patient was given 2 L of IV fluids. Rapid COVID and flu were negative. Patient was given meropenem and admitted to the regular floor for further evaluation. Since being admitted, patient's mother reports that she is somewhat improved. Patient does have significant cerebral palsy and is unable to provide any additional information. Per the mother, patient was doing fine until 2 days prior to presentation. At that point patient had developed some fever with tachycardia. Mother reports that there have been some pale yellow to green secretions that have increased in volume. Mother was concerned about significant tachypnea on my evaluation. Evaluation of the ventilator showed significant condensation within the tubing. This was emptied with resolution of tachypnea. Mother reported review of systems otherwise negative from a constitutional, HEENT, respiratory, cardiovascular, GI, genitourinary, musculoskeletal, skin, neurologic, psychiatric and hematologic system unless stated above. [facility] Medical History (Updated 08/31/22 @ 14:[address] Lawrence Weiner MD) Allergic rhinitis due to other allergen Amenorrhea Bedbound Bladder disease Bronchiectasis without acute exacerbation Bronchitis Cerebral palsy Chronic respiratory failure Diabetes Dietary restriction History of Clostridium difficile infection History of renal disease Hyperglycemia Irregular menstrual cycle Kidney stones Lactic acid acidosis Mild mental retardation MRSA infection Neuromuscular scoliosis Non-smoker On home oxygen therapy On tube feeding diet Pancreatitis Paraplegia PICC (peripherally inserted central catheter) in place Pneumonia Recurrent UTI Redness of skin Renal calculi Renal calculus or stone Respiratory acidosis Seizure Seizures Severe sepsis Skin tag of vaginal mucosa 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 Thrush Urinary tract infection due to extended-spectrum beta lactamase (ESBL) producing Escherichia coli Ventilator dependent Visual disturbance Vitamin D deficiency Home Medications baclofen 20 mg tablet 30 mg G-tube TID muscle spasms 09/02/13 [History Last Taken 02/24/22] oxcarbazepine 300 mg/5 mL (60 mg/mL) oral suspension (Trileptal) 8 ml G-tube BID seizure 08/28/17 [History Last Taken 02/24/22] diazepam 5 mg/5 mL (1 mg/mL) oral solution 5 mg feeding tube DAILY@1400 spasms 05/20/21 [History Last Taken 02/24/22] diazepam 5 mg/5 mL (1 mg/mL) oral solution 7 mg feeding tube BID spasms 05/20/21 [History Last Taken 02/24/22] guaifenesin 100 mg/5 mL oral liquid 200 mg (10 mL) G-tube Q4H PRN PRN thick secretions #1,000 mL 09/25/21 [Rx Last Taken 02/23/22] ascorbic acid (vitamin C) 500 mg/5 mL oral syrup 500 mg feeding tube BID SUPPLEMENT 12/12/21 [History Last Taken 02/24/22] cholecalciferol (vitamin D3) 50 mcg (2,000 unit) capsule 50 mcg feeding tube DAILY SUPPLEMENT 12/12/21 [History Last Taken 02/24/22] ibuprofen 100 mg/5 mL oral suspension 400 mg PO Q6H PRN Pain 12/12/21 [History Last Taken 02/24/22] miconazole nitrate 2 % vaginal cream (Monistat 7) 1 appful vaginal DAILY PRN YEAST 12/12/21 [History Last Taken 1 Week Ago ~02/17/22] multivitamin-folic acid-herbal no.275 400 mcg-200 mg/30 mL oral liquid 5 ml PO DAILY SUPPLEMENT 12/12/21 [History Last Taken 02/23/22] sodium chloride 0.9 % for nebulization 3 - 6 ml inhalation Q2H PRN Congestion 12/12/21 [History Last Taken 02/23/22] blood sugar diagnostic (True Metrix Pro Test Strip) #400 ea 01/05/22 [Rx Last Taken Unknown] pen needle, diabetic 32 gauge x /32 (BD Ultra-Fine Priyanka Pen Needle) #360 ea 01/05/22 [Rx Last Taken Unknown] levalbuterol HCl 1.25 mg/3 mL solution for nebulization 1.25 mg (3 mL) inhalation BID BREATHING #90 mL 01/16/22 [Rx Last Taken 02/23/22] naphazoline 0.012 % eye drops 2 drp ophthalmic (eye) DAILY PRN allergies 02/24/22 [History Last Taken 02/23/22] acetaminophen 160 mg/5 mL oral liquid 640 mg PO Q6H PRN pain/fever 03/31/22 [History Last Taken Unknown] acidophilus 25 million cell-pectin, citrus 100 mg tablet 1 tab G-tube DAILY supplement 03/31/22 [History Last Taken Unknown] bismuth subsalicylate 262 mg/15 mL oral suspension (Pepto-Bismol) 524 mg PO Q30M PRN antidiarrheal 03/31/22 [History Last Taken Unknown] carbamide peroxide 6.5 % ear drops (Debrox) 5 drp EACH EAR DAILY PRN Ear Wax 03/31/22 [History Last Taken Unknown] fluconazole 10 mg/mL oral suspension 150 mg feeding tube PRN PRN yeast 03/31/22 [History Last Taken Unknown] fluticasone propionate 44 mcg/actuation HFA aerosol inhaler (Flovent HFA) 2 puff inhalation BID Check with primary doctor 03/31/22 [History Last Taken Unknown] magnesium hydroxide 400 mg/5 mL oral suspension (Milk of Magnesia) 15 - 60 ml PO DAILY PRN Constipation 03/31/22 [History Last Taken Unknown] nystatin 100,000 unit/gram topical powder 1 applic topical BID PRN redness 03/31/22 [History Last Taken Unknown] levalbuterol HCl 1.25 mg/3 mL solution for nebulization (Xopenex) 1.25 mg (3 mL) inhalation Q4H PRN sob #150 mL 06/17/22 [Rx Last Taken Unknown] lancets 30 gauge (Embrace Lancets) #200 ea 07/22/22 [Rx Last Taken Unknown] ferrous sulfate 15 mg iron (75 mg)/mL oral syringe (ORAL USE) 5 ml feeding tube .Mon, Luann supplement 08/24/22 [History Last Taken Unknown] methenamine hippurate 1 gram tablet (Hiprex) 1 g feeding tube BID infection prevention 08/24/22 [History Last Taken Unknown] montelukast 10 mg tablet 10 mg G-tube QPM PRN Allergic Reaction 08/24/22 [History Last Taken Unknown] docusate sodium 60 mg/15 mL oral syrup 60 mg feeding tube DAILY Check with primary doctor 08/29/22 [History Last Taken Unknown] insulin aspart U-100 100 unit/mL (3 mL) subcutaneous pen 9 unit subcut 4X/DAY Diabetes 08/29/22 [History Last Taken Unknown] insulin glargine 100 unit/mL (3 mL) subcutaneous pen (Basaglar KwikPen U-100 Insulin) 20 unit subcut QPM Check with primary doctor 08/29/22 [History Last Taken Unknown] nutritional supplements 1 ea PO BID Check with primary doctor 08/29/22 [History Last Taken Unknown] Allergy/AdvReac Type Severity Reaction Status Date / Time linezolid Allergy Severe Other - Verified 08/29/22 13:03 seizure & coma vancomycin Allergy Severe Other - Verified 08/29/22 13:03 kidney failure tobramycin Allergy Intermediate Other - Verified 08/29/22 13:03 turned beet red nafcillin Allergy Mild Rash Verified 08/29/22 13:03 benzoin Allergy Unknown Rash Verified 08/29/22 13:03 milk Allergy Unknown Other Verified 08/29/22 13:03 soy Allergy Unknown Other Verified 08/29/22 13:03 polyethylene glycol 3350 AdvReac Unknown Hives Verified 08/29/22 13:03 [From Miralax] Family History Grandmother Cancer maternal Other Adopted Surgical History derotatox ostomies eyes straightened Gastrostomy tube in place H/O spinal fusion Presence of intrathecal baclofen pump rods to back Status post Jorje fundoplication surgery on gland under tongue tendonatomies Tracheostomy status Social History household members: other details: Mother and is vent dependent housing: house Smoking Status: Never smoker second hand exposure: No alcohol intake: never substance use type: does not use ROS ROS Narrative See HPI Physical Exam Const alert and no apparent distress Constitutional Narrative: Nonverbal baseline. Smiles upon seeing me General Appearance: patient mechanically ventilated HEENT normocephalic and head/scalp atraumatic HEENT Narrative: Macroglossia present Eyes PERRL and EOMs intact bilaterally Neck supple Neck Narrative: Tracheostomy site intact. No surrounding erythema or exudate noted Chest inspection of chest normal Resp Auscultation: rhonchi lower bilaterally and diminished lung sounds; Negative for rales or wheezes Cardio regular rhythm, S1 normal heart sound, S2 normal heart sound, no murmurs, no rub and no gallops Rate: tachycardic GI normal to inspection, nondistended, normoactive bowel sounds Inspection: GI tube present Extremity Extremity Narrative: Contracted extremities with spastic quadriplegia. General Extremity: Negative for edema Skin no rashes or lesions noted Neuro Neuro Narrative: Baseline neurological status. Psych Mood & Affect: flat affect Lab / Micro Data Attestation: I reviewed the patient's lab results. Lab results narrative: Patient does have a history of C. difficile and ESBL E. coli in the past. Result Diagrams: 08/31/22 04:51 08/31/22 04:51 Labs: Laboratory Results - last 24 hr 08/30/22 04:29: Diff Path Review Reviewed 08/30/22 14:18: POC Glucose 188 H 08/30/22 17:00: POC Glucose 205 H 08/30/22 20:10: POC Glucose 157 H 08/31/22 04:51: WBC 10.3, RBC 3.03 L, Hgb 9.7 L, Hct 29.6 L, MCV 97.7, MCH 32.0, MCHC 32.8, RDW Std Deviation 45.1 H, RDW Coeff of Anne 12.5, Plt Count 207, MPV 10.4, Immature Gran % (Auto) 0.500, Neut % (Auto) 71.8 H, Lymph % (Auto) 14.7 L, [place] % (Auto) 11.8 H, Eos % (Auto) 1.0, Baso % (Auto) 0.2, Absolute Neuts (auto) 7.4, Absolute Lymphs (auto) 1.51, Nucleated RBC % 0 08/31/22 04:51: Sodium 142, Potassium 3.4 L, Chloride 109 H, Carbon Dioxide 29.0, Anion Gap 4 L, BUN 15, Creatinine 0.22 L, Estim Creat Clear Calc 294.41, Est GFR (MDRD) Af Amer 470, Est GFR (MDRD) Non-Af 389, BUN/Creatinine Ratio 67.9 H, Glucose 127 H, Calcium 9.3 08/31/22 06:03: POC Glucose 123 H 08/31/22 11:08: POC Glucose 177 H 08/31/22 14:11: POC Glucose 166 H Micro: Microbiology 08/29/22 16:20 Urine Catheter - Catheter Urine Culture - Preliminary Presumptive E. coli 08/29/22 15:09 Stool Enteric Bacteriology - Final 08/29/22 15:09 Stool C. difficile GDH Antigen & Toxins - Final 08/29/22 15:09 Stool C. difficile DNA Amplification - Final Charges/Coding Visit Charges Inpatient E&M: 09625 Init Hosp L3
--- NOTE | 2022-08-31 15:30 | CASEMGMT ---
HIREN WILSON Assessment: Face to Face with pt for initial transition planning/care coordination assessment. HIREN WILSON introduced self and role at [facility]. Pt is in room with mother, Rina Montero, at bedside. Mother is guardian and answered questions for the assessment. Care providers, pharmacy, and demographics verified/updated. Admitting Dx: SIRS Criteria. PCP: Sandra Bermudez. Specialists: , Endocrinology; Husam, Pulmonary; Héctor, Urology; Marek, Neurology; Sg, ID. Preferred Pharmacy: [facility]. Insurance: Medicaid. Prescription Benefit: Yes. LW/HPOA: Pt's parents, Mikey/Rina Montero are pt's guardian/HPOA. LNOK: Pt lives with parents, Mikey and Rina. Living Arrangements: Pt lives with her parents in a one story home with a ramp. Transportation: [facility] used to transport but no longer does. Per mother, the squad is the only source of transportation. Pt will no longer be seeing PCP d/t lack of transportation. [facility], [facility], discussed and information provided. MotherRina, plans to call [facility] for possible qualification. [facility] services the area and accepts certain Medicaid plans. DME/HHC/SNF: Pt is total care at home and has the following: home vent, suction, oxygen thru [facility], tube feed/supplies thru [facility]. SN thru [facility] 5 days per week [id number]. [facility]. Pt has had [facility] in the past d/t PICC. No SNF stays. Pt receives Social Security Disability. Pt has a [place] Spr[employer] thru [employer]. Pt's guardian states no concerns with going home at time of dc. Pt's guardian states no further concerns/needs. CM to follow. Advised pt's guardian to ask CM if any further question/concerns/needs arise, voices understanding. Pt Goal: Home. No needs. Plan:?TBD.
[2022-08-31 17:55] LABS: Bedside Glucose 167 mg/dL (74-106)
[2022-08-31] MEDS: Vancomycin 125 MG/5 ML Susp PO.SYRINGE PO (18:54)
--- NOTE | 2022-08-31 19:00 | NURSING ---
Emergency documentation per debone supervisor.
--- NOTE | 2022-08-31 19:00 | PCA ---
EMERGENCY DOCUMENTATION
--- NOTE | 2022-08-31 21:00 | NURSING ---
Emergency documentation per functional skills tutor
[2022-08-31 22:06] LABS: Bedside Glucose 121 mg/dL (74-106)
[2022-09-01] VITALS (12 sets, daily range): BP systolic 111–138; BP diastolic 76–85; PULSE 77–108; RESP 14–20; TEMP 36.6–37.2; O2SAT 97–100
--- NOTE | 2022-09-01 00:14 | NURSING ---
Emergency Documentation effective 08/31/20 @ [id number]
[2022-09-01] MEDS: Vancomycin 125 MG/5 ML Susp PO.SYRINGE PO ×4 (00:26→17:19)
[2022-09-01] MEDS: Insulin Lispro 100 UNIT/ML INSULN.PEN SC ×2 (06:51→17:33)
[2022-09-01 07:05] LABS: Absolute Lymphocyte Count 1.28 X10^3/uL (0.83-4.51); Absolute Neutrophil Count 3.9 X10^3/uL (2.0-7.7); Basophil# 0.02 X10^3/uL; Basophil% 0.3 % (0-1); Eosinophil# 0.14 X10^3/uL; Eosinophils% 2.4 % (0-5); Hematocrit 32.9 % (37-47); Hemoglobin 11.1 g/dL (12.0-15.0); Lymphocyte # 1.28 X10^3/ul (0.83-4.51); Mean Corp Hgb Conc 33.7 g/dL (32-36); Mean Corpuscular Hgb 32.7 pg (27.0-32.0); Mean Corpuscular Volume 97.1 fL (81-99); Mean Platelet Vol. 9.7 fl (6.2-12.0); Monocyte# 0.45 X10^3/uL; Monocyte% 7.7 % (0-10); NRBC Flagged by Analyzer 0 % (0-5); Neutrophil # 3.86 X10^3/uL (2.7-7.7); Neutrophil % 66.6 % (47-70); Platelet Count 246 K/mm3 (150-450); RBC Distribution Width CV 12.3 % (11.6-14.6); RBC Distribution Width SD 43.8 fl (35.1-43.9); Red Blood Count 3.39 M/mm3 (4.2-5.4); White Blood Count 5.8 K/mm3 (4.4-11.0)
[2022-09-01] MEDS: Albuterol 2.5 MG/3 ML VIAL.NEB. INHALATION ×2 (07:10→19:23)
[2022-09-01] MEDS: Budesonide Respules 0.5 MG/2 ML AMPUL.NEB. INHALATION ×2 (07:10→19:24)
[2022-09-01 07:37] LABS: ALB/GLOB Ratio 0.8 RATIO (0.9-2.4); AST(SGOT) 17 U/L (15-37); Alanine Aminotransfer ALT/SGPT 44 U/L (13-56); Albumin, Serum 3.3 g/dL (3.2-5.0); Alkaline Phosphatase 89 U/L (45-117); Anion Gap 6 (5-15); BUN 19 mg/dL (7-18); BUN/Creat Ratio 62.7 RATIO (10-20); Calcium,Total 9.7 mg/dL (8.5-10.1); Chloride 108 mmol/L (98-107); EST Glomerular Filtration Rate 270 mL/min (>60); Est Glom Filt Rate - Afr Amer 327 mL/min (>60); Globulin 4.4 g/dL (2.2-4.2); Glucose 156 mg/dL (74-106); Phosphorus 2.6 mg/dL (2.5-4.9); Potassium 3.6 mmol/L (3.5-5.1); Protein, Total 7.7 g/dL (6.4-8.2); Sodium Level 141 mmol/L (136-145)
[2022-09-01 07:55] LABS: Bedside Glucose 153 mg/dL (74-106)
[2022-09-01] MEDS: Insulin Lispro 100 UNIT/ML INSULN.PEN 9 UNIT SC ×4 (09:21→17:17)
[2022-09-01] MEDS: Multivitamin/Minerals/Iron (9 mg/15 ml) Liquid GT (09:21)
[2022-09-01] MEDS: Baclofen 10 MG Tablet 30 MG GT ×3 (09:22→20:27)
[2022-09-01] MEDS: Juven (unflavored) Packet 1 PACKET GT ×2 (09:22→20:28)
[2022-09-01] MEDS: Enoxaparin 40 MG/0.4 ML Syringe SC (09:22)
[2022-09-01] MEDS: diazePAM 2 MG Tablet GT ×2 (09:23→20:27)
[2022-09-01] MEDS: diazePAM 5 MG Tablet GT ×3 (09:23→20:27)
[2022-09-01] MEDS: OXCARBAZEPINE 300 MG/5 ML 8 MG GT ×2 (09:23→20:28)
[2022-09-01] MEDS: Ascorbic Acid 500 MG Tablet GT ×2 (09:24→20:27)
[2022-09-01] MEDS: Cholecalciferol (VIT D3) 25 MCG TABLET (1,000 UNITS) 50 MCG GT (09:24)
--- NOTE | 2022-09-01 10:46 | PCM.PN.ID ---
Physical Exam Narrative Fever improved, sputum clearing up Const no apparent distress Resp normal air movement and clear to auscultation bilaterally Cardio regular rate and regular rhythm GI soft to palpation, non-tender and non-distended Skin no rashes or lesions noted ID ID: Route of nutrition/ use of supplements: [] Nutritional Intake: [] IV Site: [] Owens Catheter: [] Assessment & Plan Assessment/Plan (1) UTI (urinary tract infection): PLAN: H/o esbl ecoli uti. On snow. Pending sputum cx. Cont po vanc for recurrent cdiff. Overall improving. Will follow (2) Recurrent Clostridioides difficile diarrhea:
[2022-09-01 12:25] LABS: Bedside Glucose 146 mg/dL (74-106)
--- NOTE | 2022-09-01 13:24 | PCM.PN.INT ---
Assessment & Plan Assessment/Plan (1) SIRS (systemic inflammatory response syndrome): (2) Bronchiectasis without acute exacerbation: (3) Chronic respiratory failure: QUALIFIERS: Respiratory failure complication: hypoxia Qualified Code(s): J96.11 - Chronic respiratory failure with hypoxia PLAN: Plan RECOMMENDATIONS: 1. Await sputum culture 2. Antibiotics per infectious disease 3. Continue contact precautions given positive C. difficile 4. Okay to leave ventilator at current settings 5. Wean FiO2 as tolerated 6. Electrolyte supplementation as indicated IMPRESSSIONS: 1.??SIRS secondary to C. difficile colitis I do suspect that the patient's presenting symptoms were likely secondary to recurrent urinary tract source of infection or possible pneumonia.? Clinical suspicion is that the left lower lobe atelectasis is chronic and not the etiology.? Patient does not have any indication of endorgan damage at this time except for a slightly elevated lactate. Patient is currently on meropenem, which would be appropriate given history of ESBL. Patient appears to have C. difficile colitis at a minimum. Patient does not appear to have an infiltrate on chest x-ray, but this is difficult to interpret in the settings of severe contractures. Await urine and sputum culture prior to discontinuation of meropenem. 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 Patient would be at risk for MDRO organisms.? No change in ventilator settings would be required. Tachypnea appears to be secondary to fluid in the circuit. Patient appears to be back to her baseline from a ventilator standpoint Subjective Subjective Patient did well overnight. Patient's mother reports subjective improvement in overall condition. Patient reportedly is not having tachypnea and noted to have decreased secretions. Objective Data Objective Data Vital Signs: Vital Signs Temp Pulse Resp BP Pulse Ox O2 Del Method O2 Flow Rate 36.9 C 108 H 18 138/84 H 99 Mechanical Ventilator 3 09/01/22 09:00 09/01/22 09:00 09/01/22 09:00 09/01/22 09:00 09/01/22 09:00 09/01/22 09:06 09/01/22 09:06 FiO2 32 09/01/22 09:00 Oxygen Flow Rate (L/min) 3 Oxygen Delivery Method Mechanical Ventilator Weight: 50.8 kg Body Mass Index (BMI) 27.0 Intake & Output: Intake and Output for Last 24 Hours 08/30/22 08/31/22 09/01/22 23:59 23:59 23:59 Intake Total 2263.58 / 2263.58 1028 / 1028 120 / 120 Balance 2263.58 / 2263.58 1028 / 1028 120 / 120 Lab / Micro Data Attestation: I reviewed the patient's lab results. Result Diagrams: 09/01/22 06:55 09/01/22 06:55 Labs: Laboratory Results - last 24 hr 08/30/22 04:29: Diff Path Review Reviewed 08/31/22 14:11: POC Glucose 166 H 08/31/22 17:30: POC Glucose 167 H 08/31/22 21:33: POC Glucose 121 H 09/01/22 06:50: POC Glucose 153 H 09/01/22 06:55: WBC 5.8, RBC 3.39 L, Hgb 11.1 L, Hct 32.9 L, MCV 97.1, MCH 32.7 H, MCHC 33.7, RDW Std Deviation 43.8, RDW Coeff of Anne 12.3, Plt Count 246, MPV 9.7, Immature Gran % (Auto) 1.000 H, Neut % (Auto) 66.6, Lymph % (Auto) 22.0, [place] % (Auto) 7.7, Eos % (Auto) 2.4, Baso % (Auto) 0.3, Absolute Neuts (auto) 3.9, Absolute Lymphs (auto) 1.28, Nucleated RBC % 0 09/01/22 06:55: Sodium 141, Potassium 3.6, Chloride 108 H, Carbon Dioxide 27.0, Anion Gap 6, BUN 19 H, Creatinine 0.30 L, Estim Creat Clear Calc 215.90, Est GFR (MDRD) Af Amer 327, Est GFR (MDRD) Non-Af 270, BUN/Creatinine Ratio 62.7 H, Glucose 156 H, Calcium 9.7, Phosphorus 2.6, Magnesium 2.0, Total Bilirubin 0.30, AST 17, ALT 44, Alkaline Phosphatase 89, Total Protein 7.7, Albumin 3.3, Globulin 4.4 H, Albumin/Globulin Ratio 0.8 L 09/01/22 11:25: POC Glucose 146 H Micro: Microbiology 08/29/22 16:20 Urine Catheter - Catheter Urine Culture - Preliminary Presumptive E. coli 08/29/22 15:09 Stool Enteric Bacteriology - Final 08/29/22 15:09 Stool C. difficile GDH Antigen & Toxins - Final 08/29/22 15:09 Stool C. difficile DNA Amplification - Final 08/29/22 18:38 Mucosa - Nasopharyngeal Respiratory Panel (PCR) - Final 08/29/22 16:52 Mucosa - Nose Influenza Types A,B Direct FA (MESHA) - Final 08/29/22 15:23 Nasal Secretion SARS-CoV-2 Antigen (Rapid) - Final Physical Exam Const alert and no apparent distress Constitutional Narrative: Nonverbal baseline. Smiles upon seeing me General Appearance: patient mechanically ventilated HEENT normocephalic and head/scalp atraumatic Eyes PERRL and EOMs intact bilaterally Neck supple Neck Narrative: Tracheostomy site intact. No surrounding erythema or exudate noted Chest inspection of chest normal Resp Auscultation: rhonchi lower bilaterally and diminished lung sounds; Negative for rales or wheezes Cardio regular rhythm, S1 normal heart sound, S2 normal heart sound, no murmurs, no rub and no gallops Rate: tachycardic GI normal to inspection, nondistended, normoactive bowel sounds Inspection: GI tube present Extremity Extremity Narrative: Contracted extremities with spastic quadriplegia. General Extremity: Negative for edema Skin no rashes or lesions noted Neuro Neuro Narrative: Baseline neurological status. Psych Mood & Affect: flat affect Charges/Coding Visit Charges Inpatient E&M: 83951 Subs Hosp L2
--- NOTE | 2022-09-01 14:48 | PCM.PN.HOSP ---
Subjective Subjective Follow-up on acute recurrent UTI/acute recurrent C. difficile: Patient was seen and examined.? No acute events. Mother thinks that patient overall is doing better. Diarrhea appears to have slowed down. Objective Data Objective Data Vital Signs: Vital Signs Temp Pulse Resp BP Pulse Ox O2 Del Method O2 Flow Rate 98.5 F 108 H 18 138/84 H 99 Mechanical Ventilator 3 09/01/22 09:00 09/01/22 09:00 09/01/22 09:00 09/01/22 09:00 09/01/22 09:00 09/01/22 09:06 09/01/22 09:06 FiO2 32 09/01/22 09:00 Oxygen Flow Rate (L/min) 3 Oxygen Delivery Method Mechanical Ventilator Weight: 50.8 kg Body Mass Index (BMI) 27.0 Intake & Output: Intake and Output for Last 24 Hours 08/30/22 08/31/22 09/01/22 23:59 23:59 23:59 Intake Total 2263.58 / 2263.58 1028 / 1028 395.25 / 395.25 Balance 2263.58 / 2263.58 1028 / 1028 395.25 / 395.25 Lab / Micro Data Result Diagrams: 09/01/22 06:55 09/01/22 06:55 Labs: Laboratory Results - last 24 hr 08/31/22 17:30: POC Glucose 167 H 08/31/22 21:33: POC Glucose 121 H 09/01/22 06:50: POC Glucose 153 H 09/01/22 06:55: WBC 5.8, RBC 3.39 L, Hgb 11.1 L, Hct 32.9 L, MCV 97.1, MCH 32.7 H, MCHC 33.7, RDW Std Deviation 43.8, RDW Coeff of Anne 12.3, Plt Count 246, MPV 9.7, Immature Gran % (Auto) 1.000 H, Neut % (Auto) 66.6, Lymph % (Auto) 22.0, [place] % (Auto) 7.7, Eos % (Auto) 2.4, Baso % (Auto) 0.3, Absolute Neuts (auto) 3.9, Absolute Lymphs (auto) 1.28, Nucleated RBC % 0 09/01/22 06:55: Sodium 141, Potassium 3.6, Chloride 108 H, Carbon Dioxide 27.0, Anion Gap 6, BUN 19 H, Creatinine 0.30 L, Estim Creat Clear Calc 215.90, Est GFR (MDRD) Af Amer 327, Est GFR (MDRD) Non-Af 270, BUN/Creatinine Ratio 62.7 H, Glucose 156 H, Calcium 9.7, Phosphorus 2.6, Magnesium 2.0, Total Bilirubin 0.30, AST 17, ALT 44, Alkaline Phosphatase 89, Total Protein 7.7, Albumin 3.3, Globulin 4.4 H, Albumin/Globulin Ratio 0.8 L 09/01/22 11:25: POC Glucose 146 H Micro: Microbiology 09/01/22 08:15 Sputum, Expectorated/Coughed Gram Stain - Final 08/31/22 19:23 Transtracheal Aspirate Gram Stain - Final 08/29/22 16:20 Urine Catheter - Catheter Urine Culture - Final ESBL Escherichia coli 08/29/22 15:09 Stool Enteric Bacteriology - Final 08/29/22 15:09 Stool C. difficile GDH Antigen & Toxins - Final 08/29/22 15:09 Stool C. difficile DNA Amplification - Final 08/29/22 18:38 Mucosa - Nasopharyngeal Respiratory Panel (PCR) - Final 08/29/22 16:52 Mucosa - Nose Influenza Types A,B Direct FA (MESHA) - Final 08/29/22 15:23 Nasal Secretion SARS-CoV-2 Antigen (Rapid) - Final Physical Exam Narrative Physical exam: General: Short stature, lethargic, nonverbal, noncommunicative, cerebral palsy HEENT: Atraumatic Oral: Moist Mucosa Neck: Supple Lungs: Diminished to auscultation Cardiovascular: HS I+II, regular, no murmurs Abdomen: Bowel Sounds Present, G-tube present, soft, Non Tender Extremities: Wasting of the lower extremity, no edema, discussed however the right hip, contractures of the upper and lower extremities as well as the neck Assessment & Plan Assessment/Plan (1) SIRS (systemic inflammatory response syndrome): PLAN: Plan 1. Acute recurrent E. coli ESBL UTI, continue on IV meropenem 2. Acute diarrhea, history of recurrent C. difficile, Infectious disease following, continue on oral vancomycin 3. Hypokalemia secondary to #2, replaced 4. Chronic hypoxic respiratory failure, on chronic vent, pulmonology consulted 4. Spastic quadriplegic cerebral palsy/seizure disorder, continue on baclofen, diazepam and Trileptal. 5. Type 2 diabetes mellitus, blood sugars are fairly controlled, continue on home insulin regimen with insulin sliding scale 6. DVT prophylaxis- Lovenox SC Charges/Coding Visit Charges Inpatient E&M: 84714 Subs Hosp L2
[2022-09-01 15:20] LABS: Bedside Glucose 179 mg/dL (74-106)
[2022-09-01 17:35] LABS: Bedside Glucose 137 mg/dL (74-106)
--- NOTE | 2022-09-01 20:31 | NURSING ---
Per family request, pt. given medication along with insuln (lantus) around 20:30 to go with HS schedule at home to stick with home routine
[2022-09-01] MEDS: Insulin Glargine-YFGN 100 UNIT/ML Pen 20 UNIT SC (20:44)
[2022-09-01 23:20] LABS: Bedside Glucose 165 mg/dL (74-106)
[2022-09-02] VITALS (11 sets, daily range): BP systolic 118–136; BP diastolic 81–93; PULSE 58–109; RESP 16–20; TEMP 36.9–37.1; O2SAT 96–100
[2022-09-02] MEDS: Vancomycin 125 MG/5 ML Susp PO.SYRINGE PO ×4 (01:04→17:25)
[2022-09-02 06:32] LABS: Absolute Lymphocyte Count 1.54 X10^3/uL (0.83-4.51); Absolute Neutrophil Count 3.2 X10^3/uL (2.0-7.7); Basophil# 0.03 X10^3/uL; Basophil% 0.5 % (0-1); Eosinophils% 3.6 % (0-5); Hematocrit 34.2 % (37-47); Hemoglobin 11.7 g/dL (12.0-15.0); Lymphocyte # 1.54 X10^3/ul (0.83-4.51); Mean Corp Hgb Conc 34.2 g/dL (32-36); Mean Corpuscular Hgb 32.8 pg (27.0-32.0); Mean Corpuscular Volume 95.8 fL (81-99); Mean Platelet Vol. 9.7 fl (6.2-12.0); Monocyte# 0.44 X10^3/uL; NRBC Flagged by Analyzer 0 % (0-5); Neutrophil # 3.21 X10^3/uL (2.7-7.7); Neutrophil % 58.4 % (47-70); Platelet Count 280 K/mm3 (150-450); RBC Distribution Width SD 42.4 fl (35.1-43.9); Red Blood Count 3.57 M/mm3 (4.2-5.4); White Blood Count 5.5 K/mm3 (4.4-11.0)
[2022-09-02 07:06] LABS: Anion Gap 7 (5-15); BUN 21 mg/dL (7-18); BUN/Creat Ratio 63.6 RATIO (10-20); Calcium,Total 9.9 mg/dL (8.5-10.1); Chloride 105 mmol/L (98-107); Creatinine, Serum 0.33 mg/dL (0.55-1.02); EST Glomerular Filtration Rate 245 mL/min (>60); Est Glom Filt Rate - Afr Amer 296 mL/min (>60); Estimated Creatinine Clearance 196.27 ml/min; Glucose 149 mg/dL (74-106); Potassium 3.5 mmol/L (3.5-5.1); Sodium Level 139 mmol/L (136-145)
[2022-09-02] MEDS: Budesonide Respules 0.5 MG/2 ML AMPUL.NEB. INHALATION ×2 (07:14→20:24)
[2022-09-02] MEDS: Albuterol 2.5 MG/3 ML VIAL.NEB. INHALATION ×2 (07:14→20:24)
[2022-09-02 07:20] LABS: Bedside Glucose 141 mg/dL (74-106)
[2022-09-02] MEDS: Juven (unflavored) Packet 1 PACKET GT ×2 (08:16→20:56)
[2022-09-02] MEDS: Enoxaparin 40 MG/0.4 ML Syringe SC (08:16)
[2022-09-02] MEDS: Multivitamin/Minerals/Iron (9 mg/15 ml) Liquid GT (08:16)
[2022-09-02] MEDS: Docusate Sodium 100 MG/10 ML UDC 60 MG GT (08:16)
[2022-09-02] MEDS: diazePAM 2 MG Tablet GT ×2 (08:17→20:56)
[2022-09-02] MEDS: Baclofen 10 MG Tablet 30 MG GT ×3 (08:17→20:56)
[2022-09-02] MEDS: diazePAM 5 MG Tablet GT ×3 (08:17→20:56)
[2022-09-02] MEDS: Cholecalciferol (VIT D3) 25 MCG TABLET (1,000 UNITS) 50 MCG GT (08:17)
[2022-09-02] MEDS: Ascorbic Acid 500 MG Tablet GT ×2 (08:17→20:56)
[2022-09-02] MEDS: OXCARBAZEPINE 300 MG/5 ML 8 MG GT ×2 (08:18→20:55)
[2022-09-02] MEDS: Insulin Lispro 100 UNIT/ML INSULN.PEN 9 UNIT SC ×4 (08:22→17:25)
[2022-09-02 08:55] LABS: Bedside Glucose 141 mg/dL (74-106)
--- NOTE | 2022-09-02 11:05 | PN.CC_ITS ---
Assessment & Plan Assessment/Plan (1) SIRS (systemic inflammatory response syndrome): (2) Bronchiectasis without acute exacerbation: (3) Chronic respiratory failure: QUALIFIERS: Respiratory failure complication: hypoxia Qualified Code(s): J96.11 - Chronic respiratory failure with hypoxia PLAN: Plan RECOMMENDATIONS: 1. Okay to leave from a pulmonary perspective once ID plan made 2. Antibiotics per infectious disease 3. Continue contact precautions given positive C. difficile 4. Okay to leave ventilator at current settings 5. Wean FiO2 as tolerated 6. Electrolyte supplementation as indicated IMPRESSSIONS: 1.??SIRS secondary to C. difficile colitis I do suspect that the patient's presenting symptoms were likely secondary to recurrent urinary tract source of infection or C. difficile stimulation leading to increased secretions. Sputum culture is negative.? Clinical suspic ion is that the left lower lobe atelectasis is chronic and not the etiology.? Patient does not have any indication of endorgan damage at presentation except for a slightly elevated lactate. Patient is currently on meropenem, which would be appropriate given history of ESBL. Patient appears to have C. difficile colitis at a minimum. Patient does not appear to have an infiltrate on chest x- ray, but this is difficult to interpret in the settings of severe contractures. Await ID plan 2.??Chronic respiratory failure/history of spastic quadriplegia/cerebral palsy/multiple recent antibiotics Continue baseline ventilatory support per home regimen.? Patient would be at risk for MDRO organisms.? No change in ventilator settings would be required. Tachypnea appears to be secondary to fluid in the circuit. Patient appears to be back to her baseline from a ventilator standpoint. Okay to discharge from a pulmonary perspective on the current vent settings Subjective Subjective Patient is nonverbal. Father is at the bedside and feels the patient is improving significantly. Continue to struggle with the appropriate humidity level to avoid condensation, but secretions are back to normal. Objective Data Objective Data No fluid level noted in vent tubing. Some condensation noted. Vital Signs: Vital Signs Temp Pulse Resp BP Pulse Ox O2 Del Method O2 Flow Rate 37.0 C 88 16 118/81 H 100 Mechanical Ventilator 3 09/02/22 08:25 09/02/22 08:25 09/02/22 08:25 09/02/22 08:25 09/02/22 08:25 09/02/22 08:25 09/02/22 08:25 FiO2 32 09/02/22 08:25 Oxygen Flow Rate (L/min) 3 Oxygen Delivery Method Mechanical Ventilator Weight: 50.8 kg Body Mass Index (BMI) 27.0 Intake & Output: Intake and Output for Last 24 Hours 08/31/22 09/01/22 09/02/22 23:59 23:59 23:59 Intake Total 1028 / 1028 1175.25 / 1175.25 240 / 240 Balance 1028 / 1028 1175.25 / 1175.25 240 / 240 Lab / Micro Data Attestation: I reviewed the patient's lab results. Result Diagrams: 09/02/22 05:59 09/02/22 05:59 Labs: Laboratory Results - last 24 hr 09/01/22 11:25: POC Glucose 146 H 09/01/22 14:47: POC Glucose 179 H 09/01/22 17:13: POC Glucose 137 H 09/01/22 20:38: POC Glucose 165 H 09/02/22 05:59: WBC 5.5, RBC 3.57 L, Hgb 11.7 L, Hct 34.2 L, MCV 95.8, MCH 32.8 H, MCHC 34.2, RDW Std Deviation 42.4, RDW Coeff of Anne 12.0, Plt Count 280, MPV 9.7, Immature Gran % (Auto) 1.500 H, Neut % (Auto) 58.4, Lymph % (Auto) 28.0, [place] % (Auto) 8.0, Eos % (Auto) 3.6, Baso % (Auto) 0.5, Absolute Neuts (auto) 3.2, Absolute Lymphs (auto) 1.54, Nucleated RBC % 0 09/02/22 05:59: Sodium 139, Potassium 3.5, Chloride 105, Carbon Dioxide 27.0, Anion Gap 7, BUN 21 H, Creatinine 0.33 L, Estim Creat Clear Calc 196.27, Est GFR (MDRD) Af Amer 296, Est GFR (MDRD) Non-Af 245, BUN/Creatinine Ratio 63.6 H, Glucose 149 H, Calcium 9.9 09/02/22 06:45: POC Glucose 141 H 09/02/22 08:20: POC Glucose 141 H Micro: Microbiology 09/01/22 08:15 Sputum, Expectorated/Coughed Gram Stain - Final 09/01/22 08:15 Sputum, Expectorated/Coughed Respiratory Culture - Preliminary Appears to be normal respiratory anselmo. Further studies to follow. 08/31/22 19:23 Transtracheal Aspirate Gram Stain - Final 08/31/22 19:23 Transtracheal Aspirate Respiratory Culture - Preliminary Gram negative angelo 08/29/22 16:20 Urine Catheter - Catheter Urine Culture - Final ESBL Escherichia coli 08/29/22 15:09 Stool Enteric Bacteriology - Final 08/29/22 15:09 Stool C. difficile GDH Antigen & Toxins - Final 08/29/22 15:09 Stool C. difficile DNA Amplification - Final 08/29/22 18:38 Mucosa - Nasopharyngeal Respiratory Panel (PCR) - Final 08/29/22 16:52 Mucosa - Nose Influenza Types A,B Direct FA (MESHA) - Final 08/29/22 15:23 Nasal Secretion SARS-CoV-2 Antigen (Rapid) - Final Physical Exam Const alert and no apparent distress Constitutional Narrative: Nonverbal baseline. Smiles upon seeing me General Appearance: patient mechanically ventilated HEENT normocephalic and head/scalp atraumatic Eyes PERRL and EOMs intact bilaterally Neck supple Neck Narrative: Tracheostomy site intact. No surrounding erythema or exudate noted Chest inspection of chest normal Resp Auscultation: diminished lung sounds; Negative for rales, rhonchi or wheezes Cardio regular rate, regular rhythm, S1 normal heart sound, S2 normal heart sound, no murmurs, no rub and no gallops GI normal to inspection, nondistended, normoactive bowel sounds Inspection: GI tube present Extremity Extremity Narrative: Contracted extremities with spastic quadriplegia. General Extremity: Negative for edema Skin no rashes or lesions noted Neuro Neuro Narrative: Baseline neurological status. Psych Mood & Affect: flat affect Charges/Coding Visit Charges Inpatient E&M: 24083 Subs Hosp L2
[2022-09-02] MEDS: Insulin Lispro 100 UNIT/ML INSULN.PEN SC ×2 (11:15→17:25)
[2022-09-02 11:51] LABS: Bedside Glucose 151 mg/dL (74-106)
[2022-09-02 14:56] LABS: Bedside Glucose 191 mg/dL (74-106)
--- NOTE | 2022-09-02 15:06 | PN.HOSP_ITS ---
Subjective Subjective Follow-up on acute recurrent UTI/acute recurrent C. difficile: Patient was seen and examined.? No acute events overnight. Trans-tracheal aspirate growing gram-negative rods, urine cultures growing ESBL E. coli. Objective Data Objective Data Vital Signs: Vital Signs Temp Pulse Resp BP Pulse Ox O2 Del Method O2 Flow Rate 98.5 F 88 16 126/85 H 100 Mechanical Ventilator 3 09/02/22 14:41 09/02/22 14:41 09/02/22 14:41 09/02/22 14:41 09/02/22 14:41 09/02/22 14:42 09/02/22 14:41 FiO2 32 09/02/22 14:41 Oxygen Flow Rate (L/min) 3 Oxygen Delivery Method Mechanical Ventilator Weight: 50.8 kg Body Mass Index (BMI) 27.0 Intake & Output: Intake and Output for Last 24 Hours 08/31/22 09/01/22 09/02/22 23:59 23:59 23:59 Intake Total 1028 / 1028 1175.25 / 1175.25 240 / 240 Balance 1028 / 1028 1175.25 / 1175.25 240 / 240 Lab / Micro Data Result Diagrams: 09/02/22 05:59 09/02/22 05:59 Labs: Laboratory Results - last 24 hr 09/01/22 14:47: POC Glucose 179 H 09/01/22 17:13: POC Glucose 137 H 09/01/22 20:38: POC Glucose 165 H 09/02/22 05:59: WBC 5.5, RBC 3.57 L, Hgb 11.7 L, Hct 34.2 L, MCV 95.8, MCH 32.8 H, MCHC 34.2, RDW Std Deviation 42.4, RDW Coeff of Anne 12.0, Plt Count 280, MPV 9.7, Immature Gran % (Auto) 1.500 H, Neut % (Auto) 58.4, Lymph % (Auto) 28.0, [place] % (Auto) 8.0, Eos % (Auto) 3.6, Baso % (Auto) 0.5, Absolute Neuts (auto) 3.2, Absolute Lymphs (auto) 1.54, Nucleated RBC % 0 09/02/22 05:59: Sodium 139, Potassium 3.5, Chloride 105, Carbon Dioxide 27.0, Anion Gap 7, BUN 21 H, Creatinine 0.33 L, Estim Creat Clear Calc 196.27, Est GFR (MDRD) Af Amer 296, Est GFR (MDRD) Non-Af 245, BUN/Creatinine Ratio 63.6 H, Glucose 149 H, Calcium 9.9 09/02/22 06:45: POC Glucose 141 H 09/02/22 08:20: POC Glucose 141 H 09/02/22 11:14: POC Glucose 151 H 09/02/22 14:18: POC Glucose 191 H Micro: Microbiology 09/01/22 08:15 Sputum, Expectorated/Coughed Gram Stain - Final 09/01/22 08:15 Sputum, Expectorated/Coughed Respiratory Culture - Preliminar y Appears to be normal respiratory anselmo. Further studies to follow. 08/31/22 19:23 Transtracheal Aspirate Gram Stain - Final 08/31/22 19:23 Transtracheal Aspirate Respiratory Culture - Preliminary Gram negative angelo 08/29/22 16:20 Urine Catheter - Catheter Urine Culture - Final ESBL Escherichia coli 08/29/22 15:09 Stool Enteric Bacteriology - Final 08/29/22 15:09 Stool C. difficile GDH Antigen & Toxins - Final 08/29/22 15:09 Stool C. difficile DNA Amplification - Final 08/29/22 18:38 Mucosa - Nasopharyngeal Respiratory Panel (PCR) - Final 08/29/22 16:52 Mucosa - Nose Influenza Types A,B Direct FA (MESHA) - Final 08/29/22 15:23 Nasal Secretion SARS-CoV-2 Antigen (Rapid) - Final Physical Exam Narrative Physical exam: General: Short stature, lethargic, nonverbal, noncommunicative, cerebral palsy HEENT: Atraumatic Oral: Moist Mucosa Neck: Supple Lungs: Diminished to auscultation Cardiovascular: HS I+II, regular, no murmurs Abdomen: Bowel Sounds Present, G-tube present, soft, Non Tender Extremities: Wasting of the lower extremity, no edema, discussed however the rig ht hip, contractures of the upper and lower extremities as well as the neck Assessment & Plan Assessment/Plan (1) SIRS (systemic inflammatory response syndrome): PLAN: Plan 1. Acute recurrent E. coli ESBL UTI, continue on IV meropenem 2. Probable acute gram-negative angelo pneumonia, continue on IV meropenem 3. Acute diarrhea, history of recurrent C. difficile, Infectious disease following, continue on oral vancomycin 4. Hypokalemia secondary to #2, replaced 5. Chronic hypoxic respiratory failure, on chronic vent, pulmonology consulted 6. Spastic quadriplegic cerebral palsy/seizure disorder, continue on baclofen, diazepam and Trileptal. 7. Type 2 diabetes mellitus, blood sugars are fairly controlled, continue on home insulin regimen with insulin sliding scale 8. DVT prophylaxis- Lovenox SC Charges/Coding Visit Charges Inpatient E&M: 83435 Subs Hosp L2
--- NOTE | 2022-09-02 16:31 | PCM.PN.ID ---
Physical Exam Narrative Doing better, no fever Const no apparent distress Resp normal air movement and clear to auscultation bilaterally Cardio regular rate and regular rhythm GI soft to palpation, non-tender and non-distended Skin no rashes or lesions noted ID ID: Route of nutrition/ use of supplements: [] Nutritional Intake: [] IV Site: [] Owens Catheter: [] Assessment & Plan Assessment/Plan (1) UTI (urinary tract infection): PLAN: Again with esbl ecoli uti. On snow. GNR on sputum cx. Cont po vanc for recurrent cdiff. Overall improving. Will order picc. Will follow (2) Recurrent Clostridioides difficile diarrhea:
[2022-09-02 17:46] LABS: Bedside Glucose 152 mg/dL (74-106)
[2022-09-02] MEDS: Insulin Glargine-YFGN 100 UNIT/ML Pen 20 UNIT SC (21:05)
[2022-09-03] VITALS (13 sets, daily range): BP systolic 114–131; BP diastolic 80–85; PULSE 76–119; RESP 14–20; TEMP 36.9–37.7; O2SAT 96–100
[2022-09-03] MEDS: Vancomycin 125 MG/5 ML Susp PO.SYRINGE PO ×4 (00:25→17:02)
[2022-09-03 00:51] LABS: Bedside Glucose 151 mg/dL (74-106)
[2022-09-03] MEDS: Albuterol 2.5 MG/3 ML VIAL.NEB. INHALATION ×2 (07:07→19:14)
[2022-09-03] MEDS: Budesonide Respules 0.5 MG/2 ML AMPUL.NEB. INHALATION ×2 (07:07→19:14)
[2022-09-03 07:08] LABS: Anion Gap 7 (5-15); BUN 20 mg/dL (7-18); BUN/Creat Ratio 52.2 RATIO (10-20); Calcium,Total 10.1 mg/dL (8.5-10.1); Chloride 107 mmol/L (98-107); Creatinine, Serum 0.38 mg/dL (0.55-1.02); EST Glomerular Filtration Rate 206 mL/min (>60); Est Glom Filt Rate - Afr Amer 249 mL/min (>60); Estimated Creatinine Clearance 170.45 ml/min; Glucose 154 mg/dL (74-106); Potassium 3.8 mmol/L (3.5-5.1); Sodium Level 139 mmol/L (136-145)
[2022-09-03 07:10] LABS: Bedside Glucose 155 mg/dL (74-106)
[2022-09-03] MEDS: Insulin Lispro 100 UNIT/ML INSULN.PEN 9 UNIT SC ×4 (08:14→17:58)
[2022-09-03 08:40] LABS: Bedside Glucose 136 mg/dL (74-106)
[2022-09-03] MEDS: Docusate Sodium 100 MG/10 ML UDC 60 MG GT (09:57)
[2022-09-03] MEDS: Multivitamin/Minerals/Iron (9 mg/15 ml) Liquid GT (09:57)
[2022-09-03] MEDS: Baclofen 10 MG Tablet 30 MG GT ×3 (09:57→19:28)
[2022-09-03] MEDS: Ferrous Sulfate 300 MG/5 ML UDC PO (09:57)
[2022-09-03] MEDS: Cholecalciferol (VIT D3) 25 MCG TABLET (1,000 UNITS) 50 MCG GT (09:58)
[2022-09-03] MEDS: Juven (unflavored) Packet 1 PACKET GT ×2 (09:58→19:29)
[2022-09-03] MEDS: Enoxaparin 40 MG/0.4 ML Syringe SC (09:58)
[2022-09-03] MEDS: Ascorbic Acid 500 MG Tablet GT (09:58)
[2022-09-03] MEDS: diazePAM 2 MG Tablet GT ×2 (09:58→19:30)
[2022-09-03] MEDS: OXCARBAZEPINE 300 MG/5 ML 8 MG GT (09:59)
[2022-09-03] MEDS: diazePAM 5 MG Tablet GT ×3 (10:02→19:29)
--- NOTE | 2022-09-03 10:37 | CASEMGMT ---
Addendum entered by Ric Lyle 09/03/22 16:39: Discharge instructions and summary faxed to both [facility] and [facility], per their requests. Addendum entered by Ric Lyle 09/03/22 14:59: Spoke w/Dr Bettencourt who confirms he will be following pt for HHC. Dr Bettencourt aware HHC has been set up and they can do SOC tomorrow AM around 0800. He states okay from his standpoint to discharge pt today after 2pm dose Merrem infused and that she can skip the [address] Bettencourt was made aware of elevated temp this AM of 100.[address] Moncada notified and states she will discharge pt home today. Janessa @ [facility] made aware Dr Bettencourt will be following pt for HHC and that he is agreeable to pt missing 10 PM dose Merrem tonight, so she can discharge home today. She states they will do SOC for 1st home infusion of Merrem tomorrow AM around [id number]. Heidy @ [facility] has accepted referral and made aware of above. She states they will deliver medications/supplies tonight for SOC HHC tomorrow AM. She states it will be pretty late this PM, but they will call pt's parents to let them know of ETA of delivery. Pt's mom @ bedside and made aware of all of the above. Mom requests for [facility] allow for them to use pt's own home vent in transport. Magali RN, made aware pt can discharge today after 2 PM dose Merrem completed. Arminda, accredited legal secretary, notified [facility] transport will need arranged to take pt home after IV Merrem completed and request to use pt's own home vent in transport. TC to [facility] retail pharmacy and spoke w/Nicolas. He was notified pt's mom asking for meds to be delivered to pt's room today prior to discharge. Call to Lashae @ [facility]. She was made aware pt is discharging home today. She states they will plan for [facility] tomorrow for skilled private nursing. She states if weather does not permit for them to go to pt's home, then [facility] will be Wednesday and states that pt's mother is aware of same. She states [facility] order is not needed from their stand-point. Addendum entered by Ric Lyle 09/03/22 13:13: Approval letter received for PA for Firvanq. PA #: [id number]. Call placed to [facility] Retail pharmacy and Nicolas notified. He ran the medication again and it went through and is covered @ 100%. Addendum entered by Ric Lyle 09/03/22 12:54: TC re: PA for Firvanq and spoke w/Lisa. She spoke w/the pharmacist and it was approved, but they are still finalizing paperwork for it. No PA # available at this time, but they will fax it to RN KATIE in about 5-10 min. VM received from Janessa @ [facility] inquiring if Dr Bettencourt will be following pt for HHC. Message sent to Dr Bettencourt via Backline. Awaiting response. Original Note: RN KATIE NOTE: RN KATIE to room. Spoke w/pt's father re: [facility] and IV atb's. He called his and HIREN WILSON spoke w/both father and mother re: discharge planning. Pt is currently active w/[facility] for [employer]EN[employer] services 10 hrs/day x 5 days a week @ [place] office, Phone: . They do not do SN for IV atb administration. Mom states she has administered IV atb's in the past and she is comfortable w/doing them again. She states pt had [facility] in the past and she would like them again. She declines wanting list of other [facility] options. She also requests [facility] for infusion co and declines list of other options. Call to Meaghan @ [facility]. She is aware of pt's admission to [facility]. She was made aware anticipate d/c home either today or tomorrow. She asks for updated orders be faxed to them @ [phone] and for them to be notified of discharge via phone @ [phone]. Spoke w/Janessa @ [facility]. She was made aware of referral. They do not have access to [facility] and requested referral be faxed to them. She was made aware anticipate pt medically ready to discharge today. Referral sent to [facility] via [facility]. Spoke w/Heidy and she was made aware of referral and that [facility] acceptance from [facility] is pending. She states the earliest they could deliver Home Atb's/supplies would be late this PM. Call received from Nicolas @ [facility] Retail pharmacy. Vanc requires prior auth. TC to #[phone] and spoke w/Kostas. Prior auth initiated. He states it can take up to 24 hrs for decision. HIREN WILSON requested this to be expedited. Kostas states he will expedite this and for RN KATIE to call back in a couple yrs. Ervin WEBBER RN CM
--- NOTE | 2022-09-03 11:11 | PCM.PN.ID ---
Physical Exam Narrative No fever, doing better, picc in place Const no apparent distress Resp normal air movement and clear to auscultation bilaterally Cardio regular rate and regular rhythm GI soft to palpation, non-tender and non-distended Skin no rashes or lesions noted ID ID: Route of nutrition/ use of supplements: [] Nutritional Intake: [] IV Site: [] Owens Catheter: [] Assessment & Plan Assessment/Plan (1) UTI (urinary tract infection): PLAN: Again with esbl ecoli uti. On snow. GNR on sputum cx. Cont po vanc for recurrent cdiff. Overall improving. Picc in place. Ok for home with 1 week snow, 2 weeks po vanc. Wrote rx. Will follow (2) Recurrent Clostridioides difficile diarrhea:
[2022-09-03] MEDS: Insulin Lispro 100 UNIT/ML INSULN.PEN SC ×2 (11:19→17:57)
[2022-09-03] MEDS: Acetaminophen 650 MG/20 ML UDC GT (11:23)
[2022-09-03 11:45] LABS: Bedside Glucose 196 mg/dL (74-106)
--- NOTE | 2022-09-03 11:56 | PN.HOSP_ITS ---
Objective Data Objective Data Vital Signs: Vital Signs Temp Pulse Resp BP Pulse Ox O2 Del Method O2 Flow Rate 99.4 F H 106 H 14 124/83 H 98 Mechanical Ventilator 3 09/03/22 09:54 09/03/22 09:54 09/03/22 09:54 09/03/22 09:54 09/03/22 09:54 09/03/22 09:54 09/03/22 09:54 FiO2 32 09/02/22 14:41 Oxygen Flow Rate (L/min) 3 Oxygen Delivery Method Mechanical Ventilator Weight: 50.8 kg Body Mass Index (BMI) 27.0 Intake & Output: Intake and Output for Last 24 Hours 09/01/22 09/02/22 09/03/22 23:59 23:59 23:59 Intake Total 1175.25 / 1175.25 360 / 360 240 / 240 Balance 1175.25 / 1175.25 360 / 360 240 / 240 Lab / Micro Data Result Diagrams: 09/02/22 05:59 09/03/22 06:24 Labs: Laboratory Results - last 24 hr 09/02/22 14:18: POC Glucose 191 H 09/02/22 17:22: POC Glucose 152 H 09/02/22 20:54: POC Glucose 151 H 09/03/22 06:05: POC Glucose 155 H 09/03/22 06:24: Sodium 139, Potassium 3.8, Chloride 107, Carbon Dioxide 25.0, Anion Gap 7, BUN 20 H, Creatinine 0.38 L, Estim Creat Clear Calc 170.45, Est GFR (MDRD) Af Amer 249, Est GFR (MDRD) Non-Af 206, BUN/Creatinine Ratio 52.2 H, Glucose 154 H, Calcium 10.1 09/03/22 08:12: POC Glucose 136 H 09/03/22 11:18: POC Glucose 196 H Micro: Microbiology 09/01/22 08:15 Sputum, Expectorated/Coughed Gram Stain - Final 09/01/22 08:15 Sputum, Expectorated/Coughed Respiratory Culture - Prelimi nary Gram negative angelo 08/31/22 19:23 Transtracheal Aspirate Gram Stain - Final 08/31/22 19:23 Transtracheal Aspirate Respiratory Culture - Preliminary Gram negative angelo 08/29/22 16:20 Urine Catheter - Catheter Urine Culture - Final ESBL Escherichia coli 08/29/22 15:09 Stool Enteric Bacteriology - Final 08/29/22 15:09 Stool C. difficile GDH Antigen & Toxins - Final 08/29/22 15:09 Stool C. difficile DNA Amplification - Final 08/29/22 18:38 Mucosa - Nasopharyngeal Respiratory Panel (PCR) - Final 08/29/22 16:52 Mucosa - Nose Influenza Types A,B Direct FA (MESHA) - Final 08/29/22 15:23 Nasal Secretion SARS-CoV-2 Antigen (Rapid) - Final
--- NOTE | 2022-09-03 13:06 | PCM.PN.INT ---
Assessment & Plan Assessment/Plan (1) SIRS (systemic inflammatory response syndrome): (2) Bronchiectasis without acute exacerbation: (3) Chronic respiratory failure: QUALIFIERS: Respiratory failure complication: hypoxia Qualified Code(s): J96.11 - Chronic respiratory failure with hypoxia PLAN: Plan RECOMMENDATIONS: 1. Okay to leave from a pulmonary perspective once ID plan made 2. Antibiotics per infectious disease 3. Continue contact precautions given positive C. difficile 4. Okay to leave ventilator at current settings 5. Wean FiO2 as tolerated 6. Electrolyte supplementation as indicated IMPRESSSIONS: 1.??SIRS secondary to C. difficile colitis I do suspect that the patient's presenting symptoms were likely secondary to recurrent urinary tract source of infection or C. difficile stimulation leading to increased secretions. Sputum culture is now growing gram-negatives, but this should be covered by meropenem.? Clinical suspicion is still that the left lower lobe atelectasis is chronic and not the etiology.? Patient does not have any indication of endorgan damage at presentation except for a slightly elevated lactate. Patient is currently on meropenem, which would be appropriate given history of ESBL. Patient appears to have C. difficile colitis at a minimum. Patient does not appear to have an infiltrate on chest x-ray, but this is difficult to interpret in the settings of severe contractures. Await ID long-term plan 2.??Chronic respiratory failure/history of spastic quadriplegia/cerebral palsy/multiple recent antibiotics Continue baseline ventilatory support per home regimen.? Patient would be at risk for MDRO organisms.? No change in ventilator settings would be required. Tachypnea appears to be secondary to fluid in the circuit. This has not recurred since the family was educated. Patient appears to be back to her baseline from a ventilator standpoint. Okay to discharge from a pulmonary perspective on the current vent settings Subjective Subjective Patient did okay overnight. Patient reportedly had a very large bowel movement this morning. Patient's mother reports that she did have a slight fever and she was concerned that this could be a bad sign. There has been no change in patient's respiratory status. Objective Data Objective Data Vital Signs: Vital Signs Temp Pulse Resp BP Pulse Ox O2 Del Method O2 Flow Rate 37.4 C H 106 H 14 124/83 H 98 Mechanical Ventilator 3 09/03/22 10:00 09/03/22 10:00 09/03/22 10:00 09/03/22 10:00 09/03/22 10:00 09/03/22 10:00 09/03/22 10:00 FiO2 32 09/03/22 10:00 Oxygen Flow Rate (L/min) 3 Oxygen Delivery Method Mechanical Ventilator Weight: 50.8 kg Body Mass Index (BMI) 27.0 Intake & Output: Intake and Output for Last 24 Hours 09/01/22 09/02/22 09/03/22 23:59 23:59 23:59 Intake Total 1175.25 / 1175.25 360 / 360 240 / 240 Balance 1175.25 / 1175.25 360 / 360 240 / 240 Lab / Micro Data Attestation: I reviewed the patient's lab results. Result Diagrams: 09/02/22 05:59 09/03/22 06:24 Labs: Laboratory Results - last 24 hr 09/02/22 14:18: POC Glucose 191 H 09/02/22 17:22: POC Glucose 152 H 09/02/22 20:54: POC Glucose 151 H 09/03/22 06:05: POC Glucose 155 H 09/03/22 06:24: Sodium 139, Potassium 3.8, Chloride 107, Carbon Dioxide 25.0, Anion Gap 7, BUN 20 H, Creatinine 0.38 L, Estim Creat Clear Calc 170.45, Est GFR (MDRD) Af Amer 249, Est GFR (MDRD) Non-Af 206, BUN/Creatinine Ratio 52.2 H, Glucose 154 H, Calcium 10.1 09/03/22 08:12: POC Glucose 136 H 09/03/22 11:18: POC Glucose 196 H Micro: Microbiology 09/01/22 08:15 Sputum, Expectorated/Coughed Gram Stain - Final 09/01/22 08:15 Sputum, Expectorated/Coughed Respiratory Culture - Preliminary Gram negative angelo 08/31/22 19:23 Transtracheal Aspirate Gram Stain - Final 08/31/22 19:23 Transtracheal Aspirate Respiratory Culture - Preliminary Gram negative angelo 08/29/22 16:20 Urine Catheter - Catheter Urine Culture - Final ESBL Escherichia coli 08/29/22 15:09 Stool Enteric Bacteriology - Final 08/29/22 15:09 Stool C. difficile GDH Antigen & Toxins - Final 08/29/22 15:09 Stool C. difficile DNA Amplification - Final 08/29/22 18:38 Mucosa - Nasopharyngeal Respiratory Panel (PCR) - Final 08/29/22 16:52 Mucosa - Nose Influenza Types A,B Direct FA (MESHA) - Final 08/29/22 15:23 Nasal Secretion SARS-CoV-2 Antigen (Rapid) - Final Physical Exam Const alert and no apparent distress Constitutional Narrative: Nonverbal baseline. Smiles upon seeing me General Appearance: patient mechanically ventilated HEENT normocephalic and head/scalp atraumatic Eyes PERRL and EOMs intact bilaterally Neck supple Neck Narrative: Tracheostomy site intact. No surrounding erythema or exudate noted Chest inspection of chest normal Resp Auscultation: diminished lung sounds; Negative for rales, rhonchi or wheezes Cardio regular rate, regular rhythm, S1 normal heart sound, S2 normal heart sound, no murmurs, no rub and no gallops GI normal to inspection, nondistended, normoactive bowel sounds Inspection: GI tube present Extremity Extremity Narrative: Contracted extremities with spastic quadriplegia. General Extremity: Negative for edema Skin no rashes or lesions noted Skin Narrative: Slightly more flushed compared to yesterday Neuro Neuro Narrative: Baseline neurological status. Psych Mood & Affect: flat affect Charges/Coding Visit Charges Inpatient E&M: 68860 Subs Hosp L2
[2022-09-03] MEDS: Ibuprofen 100 MG/5 ML UDC 400 MG PO (14:37)
[2022-09-03 15:00] LABS: Bedside Glucose 183 mg/dL (74-106)
--- NOTE | 2022-09-03 15:45 | DCINST_ITS ---
Discharge Instructions Diet Discharge Diet: 2000 Calorie Control Diet Activity Discharge Activity: Return to Normal Activity Follow Up Care Test Results: Test results from this visit will be discussed in further detail at your follow- up appointment, if applicable. 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 Fax to [phone] Firvanq 25 mg/mL Recon Soln 125 mg PO Q6 14 Days Qty: 280 0RF Continued oxcarbazepine [Trileptal] 300 mg/5 mL (60 mg/mL) suspension 8 ml GT BID guaifenesin 100 mg/5 mL liquid 200 mg GT Q4H PRN PRN (Reason: thick secretions) Qty: 1000 3RF (DME) pen needle, diabetic [BD Ultra-Fine Priyanka Pen Needle] 32 gauge x 5/32 needle See Rx Instructions .ROUTE .MEDSUPPLY Qty: 360 3RF Rx Instructions: 4 times daily (DME) True Metrix Pro Test Strip Strip See Rx Instructions .ROUTE .MEDSUPPLY Qty: 400 3RF Rx Instructions: 4 times daily, plus extra for mental status change montelukast 10 mg tablet 10 mg G-tube QPM PRN (Reason: Allergic Reaction) baclofen 20 MG tablet 30 mg GT TID Label Comments: pain ferrous sulfate 15 mg iron (75 mg)/mL syringe 5 ml feeding tube .Mon, Luann diazepam 5 mg/5 mL (1 mg/mL) Solution 7 mg feeding tube BID methenamine hippurate [Hiprex] 1 gram tablet 1 g feeding tube BID miconazole nitrate [Monistat 7] 2 % Cream 1 appful VAGINAL DAILY PRN (Reason: YEAST) ibuprofen 100 mg/5 mL Suspension 400 mg PO Q6H PRN (Reason: Pain) sodium chloride 0.9 % Solution For Nebulization 3 - 6 ml INHALATION Q2H PRN (Reason: Congestion) ascorbic acid (vitamin C) 500 mg/5 mL Syrup 500 mg feeding tube BID cholecalciferol (vitamin D3) 50 mcg (2,000 unit) Capsule 50 mcg feeding tube DAILY multivit-folic acid-herbal 275 400 mcg-200 mg/30 mL Liquid 5 ml PO DAILY naphazoline 0.012 % Drops 2 drp OPHTHALMIC (EYE) DAILY PRN (Reason: allergies) acetaminophen 160 mg/5 mL Liquid 640 mg PO Q6H PRN (Reason: pain/fever) magnesium hydroxide [Milk of Magnesia] 400 mg/5 mL Suspension 15 - 60 ml PO DAILY PRN (Reason: Constipation) fluconazole 10 mg/mL Suspension For Reconstitution 150 mg feeding tube PRN PRN (Reason: yeast) bismuth subsalicylate [Pepto-Bismol] 262 mg/15 mL Suspension 524 mg PO Q30M PRN (Reason: antidiarrheal) Rx Instructions: do not exceed 8 doses in a 24 hour period fluticasone propionate [Flovent HFA] 44 mcg/actuation Hfa Aerosol Inhaler 2 puff INHALATION BID Rx Instructions: administer with spacer Debrox 6.5 % Drops 5 drp EACH EAR DAILY PRN (Reason: Ear Wax) nystatin 100,000 unit/gram Powder 1 applic TOPICAL BID PRN (Reason: redness) acidophilus-pectin, citrus 25 million cell -100 mg tablet 1 tab G-tube DAILY Rx Instructions: [id number] nutritional supplements Powder 1 ea PO BID Rx Instructions: GIVEN VIIA G-TUBE BID insulin aspart U-100 100 unit/mL (3 mL) insulin pen 9 unit subcut 4X/DAY MDD 70 Rx Instructions: 160 +3, 201 +5, 241 +8, 280 +10 insulin glargine [Basaglar KwikPen U-100 Insulin] 100 unit/mL (3 mL) insulin pen 20 unit subcut QPM levalbuterol HCl 1.25 mg/3 mL solution for nebulization 1.25 mg INHALATION BID Qty: 90 5RF levalbuterol HCl [Xopenex] 1.25 mg/3 mL solution for nebulization 1.25 mg INHALATION Q4H PRN (Reason: sob) Qty: 150 11RF (DME) lancets [Embrace Lancets] 30 gauge misc See Rx Instructions .Route Qty: 200 1RF Rx Instructions: 4x/day No Action diazepam 5 mg/5 mL (1 mg/mL) Solution 5 mg feeding tube DAILY@1400 docusate sodium 60 mg/15 mL Syrup 60 mg feeding tube DAILY Referrals / Follow Up: Sandra Bermudez DO [Primary Care Provider] - In 1 Week Lawrence Weiner MD [Med Staff - Active Staff] - Within 1 Month Disposition Disposition (needs filled in before D/C Order can be placed): Home Health Service
--- NOTE | 2022-09-03 15:50 | PCM.DC.SUM ---
Providers Date of Admission: 08/29/22 Date of Discharge: 09/03/22 Primary Care Physician: Dr. Sandra Bermudez, Consultations 08/29/22 18:56 Consult: Infectious Disease Routine Consulting Provider: Rafa Bettencourt Reason for Consult: SIRS criteria, no clear source of infection EMERGENT Consult: No MD Notified: Yes Date Notified: 08/31/22 Time Notified: 08:13 Method of Notification: Text 08/31/22 12:40 Consult: Pharmacist Per Diem / Pulmonary Medicine Routine Consulting Provider: Pulmonary Medicine lillie Rippey Reason for Consult: Shortness of breath EMERGENT Consult: No MD Notified: Yes Date Notified: 08/31/22 Time Notified: 12:44 Method of Notification: Text Reason For Visit: SIRS CRITERIA Diagnosis Discharge Diagnosis (1) SIRS (systemic inflammatory response syndrome): Status: Acute Code(s): R65.10 - Systemic inflammatory response syndrome (SIRS) of non-infectious origin without acute organ dysfunction (2) Bronchiectasis without acute exacerbation: Status: Chronic Code(s): J47.9 - Bronchiectasis, uncomplicated (3) Chronic respiratory failure: Status: Chronic Code(s): J96.10 - Chronic respiratory failure, unspecified whether with hypoxia or hypercapnia Qualifiers: Respiratory failure complication: hypoxia Qualified Code(s): J96.11 - Chronic respiratory failure with hypoxia Medications at Discharge Home Medications baclofen 20 mg tablet 30 mg G-tube TID muscle spasms 09/02/13 oxcarbazepine 300 mg/5 mL (60 mg/mL) oral suspension (Trileptal) 8 ml G-tube BID seizure 08/28/17 diazepam 5 mg/5 mL (1 mg/mL) oral solution 5 mg feeding tube DAILY@1400 spasms 05/20/21 diazepam 5 mg/5 mL (1 mg/mL) oral solution 7 mg feeding tube BID spasms 05/20/21 guaifenesin 100 mg/5 mL oral liquid 200 mg (10 mL) G-tube Q4H PRN PRN thick secretions #1,000 mL 09/25/21 ascorbic acid (vitamin C) 500 mg/5 mL oral syrup 500 mg feeding tube BID SUPPLEMENT 12/12/21 cholecalciferol (vitamin D3) 50 mcg (2,000 unit) capsule 50 mcg feeding tube DAILY SUPPLEMENT 12/12/21 ibuprofen 100 mg/5 mL oral suspension 400 mg PO Q6H PRN Pain 12/12/21 miconazole nitrate 2 % vaginal cream (Monistat 7) 1 appful vaginal DAILY PRN YEAST 12/12/21 multivitamin-folic acid-herbal no.275 400 mcg-200 mg/30 mL oral liquid 5 ml PO DAILY SUPPLEMENT 12/12/21 sodium chloride 0.9 % for nebulization 3 - 6 ml inhalation Q2H PRN Congestion 12/12/21 blood sugar diagnostic (True Metrix Pro Test Strip) #400 ea 01/05/22 pen needle, diabetic 32 gauge x (BD Ultra-Fine Priyanka Pen Needle) #360 ea 01/05/22 levalbuterol HCl 1.25 mg/3 mL solution for nebulization 1.25 mg (3 mL) inhalation BID BREATHING #90 mL 01/16/22 naphazoline 0.012 % eye drops 2 drp ophthalmic (eye) DAILY PRN allergies 02/24/22 acetaminophen 160 mg/5 mL oral liquid 640 mg PO Q6H PRN pain/fever 03/31/22 acidophilus 25 million cell-pectin, citrus 100 mg tablet 1 tab G-tube DAILY supplement 03/31/22 bismuth subsalicylate 262 mg/15 mL oral suspension (Pepto-Bismol) 524 mg PO Q30M PRN antidiarrheal 03/31/22 carbamide peroxide 6.5 % ear drops (Debrox) 5 drp EACH EAR DAILY PRN Ear Wax 03/31/22 fluconazole 10 mg/mL oral suspension 150 mg feeding tube PRN PRN yeast 03/31/22 fluticasone propionate 44 mcg/actuation HFA aerosol inhaler (Flovent HFA) 2 puff inhalation BID Check with primary doctor 03/31/22 magnesium hydroxide 400 mg/5 mL oral suspension (Milk of Magnesia) 15 - 60 ml PO DAILY PRN Constipation 03/31/22 nystatin 100,000 unit/gram topical powder 1 applic topical BID PRN redness 03/31/22 levalbuterol HCl 1.25 mg/3 mL solution for nebulization (Xopenex) 1.25 mg (3 mL) inhalation Q4H PRN sob #150 mL 06/17/22 lancets 30 gauge (Embrace Lancets) #200 ea 07/22/22 ferrous sulfate 15 mg iron (75 mg)/mL oral syringe (ORAL USE) 5 ml feeding tube .Mon, Luann supplement 08/24/22 methenamine hippurate 1 gram tablet (Hiprex) 1 g feeding tube BID infection prevention 08/24/22 montelukast 10 mg tablet 10 mg G-tube QPM PRN Allergic Reaction 08/24/22 docusate sodium 60 mg/15 mL oral syrup 60 mg feeding tube DAILY Check with primary doctor 08/29/22 insulin aspart U-100 100 unit/mL (3 mL) subcutaneous pen 9 unit subcut 4X/DAY Diabetes 08/29/22 insulin glargine 100 unit/mL (3 mL) subcutaneous pen (Basaglar KwikPen U-100 Insulin) 20 unit subcut QPM Check with primary doctor 08/29/22 nutritional supplements 1 ea PO BID Check with primary doctor 08/29/22 meropenem 1 gram intravenous solution 1 g IV Q8 7 days #21 ea 09/03/22 vancomycin 25 mg/mL oral solution (Firvanq) 125 mg (5 mL) PO Q6 14 days #280 mL 09/03/22 Hospital Course Operations None Procedures None and PICC line placement Summary of Care Provided Minutes Spent on Discharge: 35 Hospital Course: 32-year-old female with past medical history of cerebral palsy, chronic respiratory failure, vent dependent, nonambulatory presents with fever, diarrhea and hypoxia. Patient has history of ESBL E. coli UTI and C. difficile. In the emergency room, she was slightly tachycardic, WBC>14, lactic acid was 2.0, UA was suggestive of UTI. Chest x-ray showed chronic basilar atelectasis. Patient was admitted to the progressive care unit, continued on her chronic vent settings, started on IV meropenem from the ED. Infectious disease and pulmonology were consulted during this hospital stay. Her urine cultures grew ESBL E. coli. She had gram-negative angelo on sputum culture. 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 She eventually had a PICC line placed on and she was discharged on 1 week of Meropenem IV as well as 2 weeks of oral vancomycin. Patient will follow-up with her primary care doctor within a week this was communicated clearly Physical Exam Narrative Physical exam: General: Short stature, lethargic, nonverbal, noncommunicative, cerebral palsy HEENT: Atraumatic Oral: Moist Mucosa Neck: Supple Lungs: Diminished to auscultation Cardiovascular: HS I+II, regular, no murmurs Abdomen: Bowel Sounds Present, G-tube present, soft, Non Tender Extremities: Wasting of the lower extremity, no edema,contractures of right hip, contractures of the upper and lower extremities as well as the neck Weight / BMI Weight Weight: 50.8 kg Body Mass Index (BMI) 27.0 ABG / Lab / Microbiology Data Result Diagrams: 09/02/22 05:59 09/03/22 06:24 Laboratory: Laboratory Results - last 24 hr 09/02/22 17:22: POC Glucose 152 H 09/02/22 20:54: POC Glucose 151 H 09/03/22 06:05: POC Glucose 155 H 09/03/22 06:24: Sodium 139, Potassium 3.8, Chloride 107, Carbon Dioxide 25.0, Anion Gap 7, BUN 20 H, Creatinine 0.38 L, Estim Creat Clear Calc 170.45, Est GFR (MDRD) Af Amer 249, Est GFR (MDRD) Non-Af 206, BUN/Creatinine Ratio 52.2 H, Glucose 154 H, Calcium 10.1 09/03/22 08:12: POC Glucose 136 H 09/03/22 11:18: POC Glucose 196 H 09/03/22 14:20: POC Glucose 183 H Microbiology: Microbiology 08/29/22 14:49 Blood Culture (Wb) - Right Hand Blood Culture - Final No growth in 5 days. 09/01/22 08:15 Sputum, Expectorated/Coughed Gram Stain - Final 09/01/22 08:15 Sputum, Expectorated/Coughed Respiratory Culture - Preliminary Gram negative angelo 08/31/22 19:23 Transtracheal Aspirate Gram Stain - Final 08/31/22 19:23 Transtracheal Aspirate Respiratory Culture - Preliminary Gram negative angelo 08/29/22 16:20 Urine Catheter - Catheter Urine Culture - Final ESBL Escherichia coli 08/29/22 15:09 Stool Enteric Bacteriology - Final 08/29/22 15:09 Stool C. difficile GDH Antigen & Toxins - Final 08/29/22 15:09 Stool C. difficile DNA Amplification - Final 08/29/22 18:38 Mucosa - Nasopharyngeal Respiratory Panel (PCR) - Final 08/29/22 16:52 Mucosa - Nose Influenza Types A,B Direct FA (MESHA) - Final 08/29/22 15:23 Nasal Secretion SARS-CoV-2 Antigen (Rapid) - Final D/C Instructions Discharge Diet: 1999 Calorie Control Diet Meaningful Use Info Meaningful Use Diagnoses (Choose all that apply): None applicable Discharge Plan Admission Admit Date/Time: 08/29/22 18:22 Primary Reason for Your Visit: Fever Attending Provider: Hillary Moncada Primary Care Provider: Sandra Bermudez Consulting Providers: Gem Pino ; Rafa Bettencourt ; Lawrence Weiner ; Landry Valenzuela ; Nino Wmoack ; Santos Ansari ; Dory Victor ASSISTANT OPERATIONS MANAGER Instructions Additional Instructions / Restrictions: Current vent settings Discharge Orders/Prescriptions Prescriptions: New meropenem 1 gram Recon Soln 1 g IV Q8 7 Days Qty: 21 0RF Rx Instructions: dx: esbl infection weekly bmp, cbc, and LFT while on iv abx. Fax to [phone] Firvanq 25 mg/mL Recon Soln 125 mg PO Q6 14 Days Qty: 280 0RF Continued oxcarbazepine [Trileptal] 300 mg/5 mL (60 mg/mL) suspension 8 ml GT BID guaifenesin 100 mg/5 mL liquid 200 mg GT Q4H PRN PRN (Reason: thick secretions) Qty: 1000 3RF (DME) pen needle, diabetic [BD Ultra-Fine Priyanka Pen Needle] 32 gauge x 5/32 needle See Rx Instructions .ROUTE .MEDSUPPLY Qty: 360 3RF Rx Instructions: 4 times daily (DME) True Metrix Pro Test Strip Strip See Rx Instructions .ROUTE .MEDSUPPLY Qty: 400 3RF Rx Instructions: 4 times daily, plus extra for mental status change montelukast 10 mg tablet 10 mg G-tube QPM PRN (Reason: Allergic Reaction) baclofen 20 MG tablet 30 mg GT TID Label Comments: pain ferrous sulfate 15 mg iron (75 mg)/mL syringe 5 ml feeding tube .Mon, Luann diazepam 5 mg/5 mL (1 mg/mL) Solution 7 mg feeding tube BID methenamine hippurate [Hiprex] 1 gram tablet 1 g feeding tube BID miconazole nitrate [Monistat 7] 2 % Cream 1 appful VAGINAL DAILY PRN (Reason: YEAST) ibuprofen 100 mg/5 mL Suspension 400 mg PO Q6H PRN (Reason: Pain) sodium chloride 0.9 % Solution For Nebulization 3 - 6 ml INHALATION Q2H PRN (Reason: Congestion) ascorbic acid (vitamin C) 500 mg/5 mL Syrup 500 mg feeding tube BID cholecalciferol (vitamin D3) 50 mcg (2,000 unit) Capsule 50 mcg feeding tube DAILY multivit-folic acid-herbal 275 400 mcg-200 mg/30 mL Liquid 5 ml PO DAILY naphazoline 0.012 % Drops 2 drp OPHTHALMIC (EYE) DAILY PRN (Reason: allergies) acetaminophen 160 mg/5 mL Liquid 640 mg PO Q6H PRN (Reason: pain/fever) magnesium hydroxide [Milk of Magnesia] 400 mg/5 mL Suspension 15 - 60 ml PO DAILY PRN (Reason: Constipation) fluconazole 10 mg/mL Suspension For Reconstitution 150 mg feeding tube PRN PRN (Reason: yeast) bismuth subsalicylate [Pepto-Bismol] 262 mg/15 mL Suspension 524 mg PO Q30M PRN (Reason: antidiarrheal) Rx Instructions: do not exceed 8 doses in a 24 hour period fluticasone propionate [Flovent HFA] 44 mcg/actuation Hfa Aerosol Inhaler 2 puff INHALATION BID Rx Instructions: administer with spacer Debrox 6.5 % Drops 5 drp EACH EAR DAILY PRN (Reason: Ear Wax) nystatin 100,000 unit/gram Powder 1 applic TOPICAL BID PRN (Reason: redness) acidophilus-pectin, citrus 25 million cell -100 mg tablet 1 tab G-tube DAILY Rx Instructions: [id number] nutritional supplements Powder 1 ea PO BID Rx Instructions: GIVEN VIIA G-TUBE BID insulin aspart U-100 100 unit/mL (3 mL) insulin pen 9 unit subcut 4X/DAY MDD 70 Rx Instructions: 160 +3, 201 +5, 241 +8, 280 +10 insulin glargine [Basaglar KwikPen U-100 Insulin] 100 unit/mL (3 mL) insulin pen 20 unit subcut QPM levalbuterol HCl 1.25 mg/3 mL solution for nebulization 1.25 mg INHALATION BID Qty: 90 5RF levalbuterol HCl [Xopenex] 1.25 mg/3 mL solution for nebulization 1.25 mg INHALATION Q4H PRN (Reason: sob) Qty: 150 11RF (DME) lancets [Embrace Lancets] 30 gauge misc See Rx Instructions .Route Qty: 200 1RF Rx Instructions: 4x/day No Action diazepam 5 mg/5 mL (1 mg/mL) Solution 5 mg feeding tube DAILY@1400 docusate sodium 60 mg/15 mL Syrup 60 mg feeding tube DAILY Referrals / Follow Up: Sandra Bermudez DO [Primary Care Provider] - In 1 Week (Office is closed at this time. Please call to schedule.) Dory Victor NP, ASSISTANT OPERATIONS MANAGER-C [Med Staff - Adv Practice Prof] - 10/05/22 1:45 pm Disposition Disposition (needs filled in before D/C Order can be placed): Home Health Service Charges/Coding Visit Charges Inpatient E&M: 22975 Disch Hosp
[2022-09-03 17:35] LABS: Bedside Glucose 161 mg/dL (74-106)
--- NOTE | 2022-09-03 21:00 | NURSING ---
Pt's family was given updated transport time from physicians. Family requested if we could check with additional ambulance companies to see if there is a possibility of a quicker transport. Contacted nursing slitting and shipping supervisor regarding if this is allowed. [facility] who when called stated they are able to take the patient. Contacted physicians and discussed having [facility] do pickle pumper instead. Physicians cancelled the pickle pumper from them.
== END 2022-09-03 23:10 | disposition home health service (06) | DRG 463 ==
LOC: ED 13:41 → PCU 18:27
PROVIDERS: Internal Medicine Critical Care Medicine; Admitting Provider Student in an Organized Health Care Education/Training Program; Emergency Provider Student in an Organized Health Care Education/Training Program; PCP Internal Medicine; Visit Provider Internal Medicine
DX: N39.0 Urinary tract infection, site not specified (principal); A04.71 Enterocolitis due to Clostridium difficile, recurrent; G11.4 Hereditary spastic paraplegia; J96.11 Chronic respiratory failure with hypoxia; R65.10 Systemic inflammatory response syndrome (SIRS) of non-infectious origin without acute organ dysfunction; J15.4 Pneumonia due to other streptococci; E11.65 Type 2 diabetes mellitus with hyperglycemia; B96.20 Unspecified Escherichia coli [E. coli] as the cause of diseases classified elsewhere; G40.909 Epilepsy, unspecified, not intractable, without status epilepticus; Z79.4 Long term (current) use of insulin; J47.9 Bronchiectasis, uncomplicated; Z93.1 Gastrostomy status; E87.6 Hypokalemia; J98.11 Atelectasis; Z79.899 Other long term (current) drug therapy; Z20.822 Contact with and (suspected) exposure to COVID-19; Z66 Do not resuscitate; Z74.01 Bed confinement status
CPT/HCPCS: 31720; 36415; 36569; 71045; 80048; 80053; 81001; 82550; 82962; 83605; 83735; 84100; 84484; 85025; 85610; 85730; 87040; 87070; 87077; 87086; 87088; 87184; 87186; 87205; 87426; 87493; 87506; 87633; 87804; 93005; 94640; 97802; 97803; 99251; 99285; J2185; J7030; J7040; J7050; P9612; A4216; G0463; J1940

== ENCOUNTER → 2022-09-08 | Outpatient (CLI) | payer MEDICAID, SELFPAY ==
[2022-09-08 17:29] LABS: Hematocrit 33.3 % (37-47); Hemoglobin 11.2 g/dL (12.0-15.0); Mean Corp Hgb Conc 33.6 g/dL (32-36); Mean Corpuscular Hgb 31.7 pg (27.0-32.0); Mean Corpuscular Volume 94.3 fL (81-99); Mean Platelet Vol. 10.3 fl (6.2-12.0); Platelet Count 361 K/mm3 (150-450); RBC Distribution Width CV 12.4 % (11.6-14.6); RBC Distribution Width SD 41.9 fl (35.1-43.9); Red Blood Count 3.53 M/mm3 (4.2-5.4); White Blood Count 7.1 K/mm3 (4.4-11.0)
[2022-09-08 17:56] LABS: AST(SGOT) 37 U/L (15-37); Alanine Aminotransfer ALT/SGPT 93 U/L (13-56); Albumin, Serum 3.6 g/dL (3.2-5.0); Alkaline Phosphatase 85 U/L (45-117); Anion Gap 7 (5-15); BUN 11 mg/dL (7-18); BUN/Creat Ratio 24.9 RATIO (10-20); Bilirubin, Direct 0.09 mg/dL (0.00-0.30); Calcium,Total 9.4 mg/dL (8.5-10.1); Chloride 102 mmol/L (98-107); Creatinine, Serum 0.44 mg/dL (0.55-1.02); EST Glomerular Filtration Rate 175 mL/min (>60); Est Glom Filt Rate - Afr Amer 211 mL/min (>60); Globulin 3.9 g/dL (2.2-4.2); Glucose 184 mg/dL (74-106); Potassium 3.6 mmol/L (3.5-5.1); Protein, Total 7.5 g/dL (6.4-8.2); Sodium Level 137 mmol/L (136-145)
== END | disposition home or self-care (01) ==
LOC: LABSPEC 17:23
PROVIDERS: PCP Internal Medicine; Visit Provider Internal Medicine Infectious Disease
DX: N39.0 Urinary tract infection, site not specified (principal)
CPT/HCPCS: 80048; 80076; 85027

== ENCOUNTER → 2023-02-01 | Outpatient (CLI) | payer MEDICAID, SELFPAY ==
[2023-02-01 11:38] LABS: Absolute Lymphocyte Count 1.53 X10^3/uL (0.83-4.51); Absolute Neutrophil Count 3.7 X10^3/uL (2.0-7.7); Basophil# 0.03 X10^3/uL; Basophil% 0.5 % (0-1); Eosinophil# 0.14 X10^3/uL; Eosinophils% 2.4 % (0-5); Hematocrit 37.4 % (37-47); Hemoglobin 12.5 g/dL (12.0-15.0); Lymphocyte # 1.53 X10^3/ul (0.83-4.51); Lymphocyte % 25.8 % (19-41); Mean Corp Hgb Conc 33.4 g/dL (32-36); Mean Corpuscular Hgb 31.9 pg (27.0-32.0); Mean Corpuscular Volume 95.4 fL (81-99); Mean Platelet Vol. 10.6 fl (6.2-12.0); Monocyte% 8.4 % (0-10); NRBC Flagged by Analyzer 0 % (0-5); Neutrophil # 3.69 X10^3/uL (2.7-7.7); Neutrophil % 62.4 % (47-70); Platelet Count 249 K/mm3 (150-450); RBC Distribution Width SD 41.8 fl (35.1-43.9); Red Blood Count 3.92 M/mm3 (4.2-5.4); White Blood Count 5.9 K/mm3 (4.4-11.0)
[2023-02-01 11:54] LABS: Vitamin B12 1187 pg/mL (211-911); Vitamin D,25 Hydroxy 88.1 ng/mL
[2023-02-01 12:38] LABS: ALB/GLOB Ratio 0.9 RATIO (0.9-2.4); AST(SGOT) 19 U/L (15-37); Alanine Aminotransfer ALT/SGPT 36 U/L (13-56); Albumin, Serum 3.7 g/dL (3.2-5.0); Alkaline Phosphatase 73 U/L (45-117); Anion Gap 11 (5-15); BUN 9 mg/dL (7-18); BUN/Creat Ratio 19.8 RATIO (10-20); Chloride 98 mmol/L (98-107); Cholesterol 180 mg/dL (200); Creatinine, Serum 0.45 mg/dL (0.55-1.02); EST Glomerular Filtration Rate 169 mL/min (>60); Est Glom Filt Rate - Afr Amer 204 mL/min (>60); Ferritin 86 ng/mL (8-252); Globulin 4.2 g/dL (2.2-4.2); Glucose 142 mg/dL (74-106); High Density Lipoprotein 33 mg/dL; Iron 95 ug/dL (50-170); Potassium 3.5 mmol/L (3.5-5.1); Protein, Total 7.9 g/dL (6.4-8.2); Sodium Level 137 mmol/L (136-145); Thyroid Stim Hormone (TSH) 1.53 uIU/mL (0.358-3.74); Triglycerides 298 mg/dL; Very Low Density Lipoprotein 60 mg/dL (5-40)
[2023-02-04 14:27] LABS: Bilirubin, Direct 0.06 mg/dL (0.00-0.30)
[2023-02-04 15:05] LABS: Hemoglobin A1c 5.3 % (3.8-5.6)
== END | disposition home or self-care (01) ==
LOC: LAB 09:17
PROVIDERS: PCP Internal Medicine; Referring Provider Internal Medicine; Visit Provider Internal Medicine
DX: E11.9 Type 2 diabetes mellitus without complications (principal); E78.5 Hyperlipidemia, unspecified
CPT/HCPCS: 82248; 83036; 36415; 80053; 80061; 82306; 82607; 82728; 82746; 83540; 84443; 85025

== ENCOUNTER → 2023-05-07 | Outpatient (CLI) | payer MEDICAID, SELFPAY ==
[2023-05-07 10:14] LABS: AST(SGOT) 17 U/L (15-37); Alanine Aminotransfer ALT/SGPT 31 U/L (13-56); Albumin, Serum 4.1 g/dL (3.2-5.0); Alkaline Phosphatase 85 U/L (45-117); Bilirubin, Direct 0.07 mg/dL (0.00-0.30); Cholesterol 129 mg/dL (200); Globulin 4.2 g/dL (2.2-4.2); High Density Lipoprotein 37 mg/dL; Protein, Total 8.3 g/dL (6.4-8.2); Triglycerides 309 mg/dL; Very Low Density Lipoprotein 62 mg/dL (5-40)
[2023-05-07 10:21] LABS: Hemoglobin A1c 5.8 % (3.8-5.6)
== END | disposition home or self-care (01) ==
LOC: LAB 08:48
PROVIDERS: PCP Internal Medicine; Visit Provider Internal Medicine
DX: E11.9 Type 2 diabetes mellitus without complications (principal); E78.5 Hyperlipidemia, unspecified
CPT/HCPCS: 36415; 80061; 80076; 83036

== ENCOUNTER → 2023-07-30 | Outpatient (CLI) | payer MEDICAID, SELFPAY ==
[2023-07-30 10:49] LABS: Absolute Lymphocyte Count 1.39 X10^3/uL (0.83-4.51); Absolute Neutrophil Count 3.3 X10^3/uL (2.0-7.7); Basophil# 0.04 X10^3/uL; Basophil% 0.7 % (0-1); Eosinophil# 0.14 X10^3/uL; Eosinophils% 2.6 % (0-5); Hematocrit 36.3 % (37-47); Lymphocyte # 1.39 X10^3/ul (0.83-4.51); Lymphocyte % 25.8 % (19-41); Mean Corp Hgb Conc 33.1 g/dL (32-36); Mean Corpuscular Hgb 31.4 pg (27.0-32.0); Mean Platelet Vol. 10.7 fl (6.2-12.0); Monocyte% 9.3 % (0-10); NRBC Flagged by Analyzer 0 % (0-5); Neutrophil % 61.4 % (47-70); Platelet Count 257 K/mm3 (150-450); RBC Distribution Width CV 12.1 % (11.6-14.6); RBC Distribution Width SD 42.2 fl (35.1-43.9); Red Blood Count 3.82 M/mm3 (4.2-5.4); White Blood Count 5.4 K/mm3 (4.4-11.0)
[2023-07-30 11:23] LABS: ALB/GLOB Ratio 1.1 RATIO (0.9-2.4); AST(SGOT) 15 U/L (15-37); Alanine Aminotransfer ALT/SGPT 26 U/L (13-56); Alkaline Phosphatase 72 U/L (45-117); Anion Gap 8 (5-15); BUN 10 mg/dL (7-18); BUN/Creat Ratio 19.5 RATIO (10-20); Calcium,Total 9.5 mg/dL (8.5-10.1); Chloride 94 mmol/L (98-107); Creatinine, Serum 0.51 mg/dL (0.55-1.02); EST Glomerular Filtration Rate 147 mL/min (>60); Est Glom Filt Rate - Afr Amer 177 mL/min (>60); Globulin 3.8 g/dL (2.2-4.2); Glucose 169 mg/dL (74-106); Potassium 3.1 mmol/L (3.5-5.1); Protein, Total 7.8 g/dL (6.4-8.2); Sodium Level 136 mmol/L (136-145)
[2023-08-04 00:06] LABS: Trileptal-Oxcarbazepine 32 ug/mL (10-35)
== END | disposition home or self-care (01) ==
LOC: LAB.FUTURE 09:13 → LAB 09:21
PROVIDERS: PCP Internal Medicine; Visit Provider Psychiatry & Neurology Neurology
DX: G40.909 Epilepsy, unspecified, not intractable, without status epilepticus (principal)
CPT/HCPCS: 36415; 80053; 82542; 85025

== ENCOUNTER → 2023-08-18 | Outpatient (CLI) | payer MEDICAID, SELFPAY ==
[2023-08-18 11:00] LABS: Absolute Neutrophil Count 4.8 X10^3/uL (2.0-7.7); Basophil# 0.02 X10^3/uL; Basophil% 0.3 % (0-1); Eosinophil# 0.12 X10^3/uL; Eosinophils% 1.7 % (0-5); Hematocrit 37.7 % (37-47); Hemoglobin 12.6 g/dL (12.0-15.0); Lymphocyte % 21.2 % (19-41); Mean Corp Hgb Conc 33.4 g/dL (32-36); Mean Corpuscular Hgb 31.2 pg (27.0-32.0); Mean Corpuscular Volume 93.3 fL (81-99); Mean Platelet Vol. 10.4 fl (6.2-12.0); Monocyte% 8.5 % (0-10); NRBC Flagged by Analyzer 0 % (0-5); Neutrophil # 4.81 X10^3/uL (2.7-7.7); Platelet Count 236 K/mm3 (150-450); RBC Distribution Width CV 12.4 % (11.6-14.6); RBC Distribution Width SD 42.3 fl (35.1-43.9); Red Blood Count 4.04 M/mm3 (4.2-5.4); White Blood Count 7.1 K/mm3 (4.4-11.0)
[2023-08-18 11:24] LABS: Color, Urine Yellow (Yellow); Glucose, Dipstick Normal (Normal); Ketone-Dipstick Negative (Negative); Leukocyte Esterase-Dipstick 500 /ul (Negative); Nitrite-Dipstick Negative (Negative); Occult Blood-Urine 150 /ul (Negative); Protein-Dipstick 30 mg/dl (Negative); Urine Bilirubin Dipstick Negative (Negative); Urine Clarity Cloudy (Clear); Urine Urobilinogen Normal (Normal)
[2023-08-18 11:34] LABS: Bacteria 4+ /hpf (None Seen); Red Blood Cells-Urine 0-5 SEEN /hpf (0-5); Squamous Epithelial Cells - UA 0-5 SEEN /hpf (5-10); White Blood Cells 50-100 SEEN /hpf (0-5)
[2023-08-18 11:35] LABS: Mucous, Urine RARE /hpf (<or=2+)
[2023-08-18 11:36] LABS: Vitamin B12 1095 pg/mL (211-911); Vitamin D,25 Hydroxy 84.3 ng/mL
[2023-08-18 12:15] LABS: Microalbumin:Creatinine Ratio 298.2 mg/g CRE (<30 mg/g CRE)
[2023-08-18 12:34] LABS: AST(SGOT) 13 U/L (15-37); Alanine Aminotransfer ALT/SGPT 23 U/L (13-56); Albumin, Serum 3.9 g/dL (3.2-5.0); Alkaline Phosphatase 72 U/L (45-117); Anion Gap 7 (5-15); BUN 8 mg/dL (7-18); BUN/Creat Ratio 18.4 RATIO (10-20); Calcium,Total 9.6 mg/dL (8.5-10.1); Chloride 97 mmol/L (98-107); Cholesterol 123 mg/dL (200); Creatinine, Serum 0.44 mg/dL (0.55-1.02); EST Glomerular Filtration Rate 177 mL/min (>60); Est Glom Filt Rate - Afr Amer 214 mL/min (>60); Ferritin 96 ng/mL (8-252); Globulin 3.9 g/dL (2.2-4.2); Glucose 172 mg/dL (74-106); High Density Lipoprotein 36 mg/dL; Iron 75 ug/dL (50-170); Potassium 3.3 mmol/L (3.5-5.1); Protein, Total 7.8 g/dL (6.4-8.2); Sodium Level 134 mmol/L (136-145); Thyroid Stim Hormone (TSH) 1.17 uIU/mL (0.358-3.74); Triglycerides 322 mg/dL; Very Low Density Lipoprotein 64 mg/dL (5-40)
[2023-08-18 13:43] LABS: Hemoglobin A1c 5.9 % (3.8-5.6)
== END | disposition home or self-care (01) ==
LOC: LAB 08:24
PROVIDERS: PCP Internal Medicine; Visit Provider Internal Medicine
DX: R53.83 Other fatigue (principal); E11.9 Type 2 diabetes mellitus without complications; E55.9 Vitamin D deficiency, unspecified; R74.8 Abnormal levels of other serum enzymes
CPT/HCPCS: 36415; 80053; 80061; 81001; 82043; 82306; 82570; 82607; 82728; 82746; 83036; 83540; 84443; 85025

== ENCOUNTER → 2023-09-22 | Outpatient (CLI) | payer MEDICAID, SELFPAY ==
[2023-09-22 10:20] LABS: Anion Gap 5 (5-15); BUN 9 mg/dL (7-18); Calcium,Total 10.2 mg/dL (8.5-10.1); Chloride 101 mmol/L (98-107); Creatinine, Serum 0.41 mg/dL (0.55-1.02); EST Glomerular Filtration Rate 190 mL/min (>60); Est Glom Filt Rate - Afr Amer 230 mL/min (>60); Ferritin 123 ng/mL (8-252); Glucose 102 mg/dL (74-106); Iron 80 ug/dL (50-170); Iron Binding Capacity,Total 350 ug/dL (250-450); PERCENT IRON SATURATION 22.9 % (15.0-55.0); Potassium 4.2 mmol/L (3.5-5.1); Sodium Level 135 mmol/L (136-145)
== END | disposition home or self-care (01) ==
LOC: LAB 08:48
PROVIDERS: PCP Internal Medicine; Visit Provider Internal Medicine
DX: E87.6 Hypokalemia (principal); E61.1 Iron deficiency
CPT/HCPCS: 36415; 80048; 82728; 83540; 83550

== ENCOUNTER 2023-11-09 12:56 | Emergency (ER) | payer MEDICAID, SELFPAY ==
[2023-11-09] VITALS (16 sets, daily range): BP systolic 112–139; BP diastolic 62–91; PULSE 81–111; RESP 16–118; TEMP 36.6–36.9; O2SAT 91–100; BMI 26.3
--- NOTE | 2023-11-09 13:12 | EDS_ITS ---
HPI <Dr. Prosper Cabrera DO - Last Filed: 11/09/23 15:11> History of Present Illness Chief Complaint: Complaint Informant: parent Limited: other (Patient is nonverbal due to tracheostomy from cerebral palsy) Onset/Context/Timing Onset: Days (3) Context: Gradual Onset Timing: Continuous Location: Abdomen Narrative Narrative: Patient presents with hematuria for the past 3 days. Mother states patient has a history of kidney stones and thinks that this could be from a kidney stone. Mother is also concerned that she could have a urinary tract infection. Mother denies any nausea or vomiting. Mother denies any fevers or chills. Mother states that the hematuria has been bright red. Mother states that the patient has been indicating she has been having some abdominal pain. Mother states it is diffuse across her entire abdomen. [facility] <Dr. Prosper Cabrera DO - Last Filed: 11/09/23 15:11> [facility] Medical History Allergic rhinitis due to other allergen Amenorrhea Bedbound Bladder disease Bronchiectasis without acute exacerbation Bronchitis Cerebral palsy Chronic respiratory failure Diabetes Dietary restriction History of Clostridium difficile infection History of renal disease Hyperglycemia Irregular menstrual cycle Kidney stones Lactic acid acidosis Mild mental retardation MRSA infection Neuromuscular scoliosis Non-smoker On home oxygen therapy On tube feeding diet Pancreatitis Paraplegia PICC (peripherally inserted central catheter) in place Pneumonia Recurrent UTI Redness of skin Renal calculi Renal calculus or stone Respiratory acidosis Seizure Seizures Severe sepsis Skin tag of vaginal mucosa 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 Thrush Urinary tract infection due to extended-spectrum beta lactamase (ESBL) producing Escherichia coli Ventilator dependent Visual disturbance Vitamin D deficiency Home Medications baclofen 20 mg tablet 30 mg G-tube TID muscle spasms 09/02/13 [History Last Taken 02/24/22] oxcarbazepine 300 mg/5 mL (60 mg/mL) oral suspension (Trileptal) 8 ml G-tube BID seizure 08/28/17 [History Last Taken 02/24/22] diazepam 5 mg/5 mL (1 mg/mL) oral solution 5 mg feeding tube DAILY@1400 spasms 05/20/21 [History Last Taken 02/24/22] diazepam 5 mg/5 mL (1 mg/mL) oral solution 7 mg feeding tube BID spasms 05/20/21 [History Last Taken 02/24/22] ascorbic acid (vitamin C) 500 mg/5 mL oral syrup 500 mg feeding tube BID SUPPLEMENT 12/12/21 [History Last Taken 02/24/22] cholecalciferol (vitamin D3) 50 mcg (2,000 unit) capsule 50 mcg feeding tube DAILY SUPPLEMENT 12/12/21 [History Last Taken 02/24/22] ibuprofen 100 mg/5 mL oral suspension 400 mg PO Q6H PRN Pain 12/12/21 [History Last Taken 02/24/22] miconazole nitrate 2 % vaginal cream (Monistat 7) 1 appful vaginal DAILY PRN YEAST 12/12/21 [History Last Taken 1 Week Ago ~02/17/22] multivitamin-folic acid-herbal no.275 400 mcg-200 mg/30 mL oral liquid 5 ml PO DAILY SUPPLEMENT 12/12/21 [History Last Taken 02/23/22] sodium chloride 0.9 % for nebulization 3 - 6 ml inhalation Q2H PRN Congestion 12/12/21 [History Last Taken 02/23/22] levalbuterol HCl 1.25 mg/3 mL solution for nebulization 1.25 mg (3 mL) inhalation BID BREATHING #90 mL 01/16/22 [Rx Last Taken 02/23/22] naphazoline 0.012 % eye drops 2 drp ophthalmic (eye) DAILY PRN allergies 02/24/22 [History Last Taken 02/23/22] acetaminophen 160 mg/5 mL oral liquid 640 mg PO Q6H PRN pain/fever 03/31/22 [History Last Taken Unknown] acidophilus 25 million cell-pectin, citrus 100 mg tablet 1 tab G-tube DAILY supplement 03/31/22 [History Last Taken Unknown] bismuth subsalicylate 262 mg/15 mL oral suspension (Pepto-Bismol) 524 mg PO Q30M PRN antidiarrheal 03/31/22 [History Last Taken Unknown] carbamide peroxide 6.5 % ear drops (Debrox) 5 drp EACH EAR DAILY PRN Ear Wax 03/31/22 [History Last Taken Unknown] fluconazole 10 mg/mL oral suspension 150 mg feeding tube PRN PRN yeast 03/31/22 [History Last Taken Unknown] magnesium hydroxide 400 mg/5 mL oral suspension (Milk of Magnesia) 15 - 60 ml PO DAILY PRN Constipation 03/31/22 [History Last Taken Unknown] nystatin 100,000 unit/gram topical powder 1 applic topical BID PRN redness 03/31/22 [History Last Taken Unknown] ferrous sulfate 15 mg iron (75 mg)/mL oral syringe (ORAL USE) 5 ml feeding tube .Mon, Luann supplement 08/24/22 [History Last Taken Unknown] methenamine hippurate 1 gram tablet (Hiprex) 1 g feeding tube BID infection prevention 08/24/22 [History Last Taken Unknown] montelukast 10 mg tablet 10 mg G-tube QPM PRN Allergic Reaction 08/24/22 [Hist ory Last Taken Unknown] docusate sodium 60 mg/15 mL oral syrup 60 mg feeding tube DAILY Check with primary doctor 08/29/22 [History Last Taken Unknown] nutritional supplements 1 ea PO BID Check with primary doctor 08/29/22 [History Last Taken Unknown] meropenem 1 gram intravenous solution 1 g IV Q8 7 days #21 ea 09/03/22 [Rx Last Taken Unknown] vancomycin 25 mg/mL oral solution (Firvanq) 125 mg (5 mL) PO Q6 14 days #280 mL 09/03/22 [Rx Last Taken Unknown] guaifenesin 100 mg/5 mL oral liquid 200 mg (10 mL) G-tube Q4H PRN PRN thick secretions #1,000 mL 10/16/22 [Rx Last Taken Unknown] lancets 30 gauge (Embrace Lancets) #200 ea 10/27/22 [Rx Last Taken Unknown] blood sugar diagnostic (True Metrix Pro Test Strip) #400 ea 02/23/23 [Rx Last Taken Unknown] cetirizine 5 mg/5 mL oral solution 10 mg (10 mL) PO DAILY allergy symptoms #300 mL 03/18/23 [Rx Last Taken Unknown] fluticasone propionate 44 mcg/actuation HFA aerosol inhaler (Flovent HFA) 2 puff inhalation BID Check with primary doctor #10.6 grams 05/07/23 [Rx Last Taken Unknown] pen needle, diabetic 32 gauge x 5/32 (BD Ultra-Fine Priyanka Pen Needle) #360 ea 05/10/23 [Rx Last Taken Unknown] insulin glargine 100 unit/mL (3 mL) subcutaneous pen (Basaglar KwikPen U-100 Insulin) 20 unit (0.2 mL) subcut QPM Check with primary doctor #15 mL 06/08/23 [Rx Last Taken Unknown] levalbuterol HCl 1.25 mg/3 mL solution for nebulization 1.25 mg (3 mL) inhalation Q4H PRN sob #150 mL 06/24/23 [Rx Last Taken Unknown] insulin aspart U-100 100 unit/mL (3 mL) subcutaneous pen 14 unit (0.14 mL) subcut 4X/DAY Diabetes #30 mL 07/29/23 [Rx Last Taken Unknown] nitrofurantoin monohydrate/macrocrystals 100 mg capsule (Macrobid) 100 mg PO Q12H 7 days #14 caps 11/09/23 [Rx Last Taken Unknown] Allergy/AdvReac Type Severity Reaction Status Date / Time linezolid Allergy Severe Other - Verified 08/29/22 13:03 seizure & coma vancomycin Allergy Severe Other - Verified 08/29/22 13:03 kidney failure tobramycin Allergy Intermediate Other - Verified 08/29/22 13:03 turned beet red nafcillin Allergy Mild Rash Verified 08/29/22 13:03 benzoin Allergy Unknown Rash Verified 08/29/22 13:03 milk Allergy Unknown Other Verified 08/29/22 13:03 soy Allergy Unknown Other Verified 08/29/22 13:03 polyethylene glycol 3350 AdvReac Unknown Hives Verified 08/29/22 13:03 [From Miralax] Family History Grandmother Cancer maternal Other Adopted Surgical History derotatox ostomies eyes straightened Gastrostomy tube in place H/O spinal fusion Presence of intrathecal baclofen pump rods to back Status post Jorje fundoplication surgery on gland under tongue tendonatomies Tracheostomy status Social History household members: other details: Mother and is vent dependent housing: house Smoking Status: Never smoker second hand exposure: No alcohol intake: never substance use type: does not use ROS <Dr. Prosper Cabrera DO - Last Filed: 11/09/23 15:11> ROS ED Constitutional Constitutional ED: Denies chills or fever(s) Eyes Eyes: Denies blurry vision or change in vision ENT ENT ED: Denies rhinorrhea or sore throat Cardiovascular Cardiovascular: Denies chest pain or palpitations Respiratory/Chest Respiratory/Chest: Denies cough or dyspnea Gastrointestinal Gastrointestinal: Denies nausea or vomiting Genitourinary Genitourinary ED: Denies dysuria or hematuria Musculoskeletal Musculoskeletal: Denies back pain or neck pain Integumentary Denies abscess or rash Neurologic Neurologic: Denies headache(s) or weakness Allergic/Immunologic Allergic/Immunologic ED: Denies mouth swelling or urticaria EXAM <Dr. Prosper Cabrera DO - Last Filed: 11/09/23 15:11> Physical Exam Const Vital Signs: 11/09/23 12:57 11/09/23 13:00 11/09/23 14:00 Temperature 98.5 F 98.4 F 98 F Temperature Source Temporal Temporal Temporal Pulse Rate 97 111 H 98 Respiratory Rate 18 118 H Blood Pressure 131/78 H 126/80 H 134/81 H Blood Pressure Mean 95 95 98 Pulse Ox 100 96 96 Oxygen Delivery Method Mechanical Ventilator Mechanical Ventilator Mechanical Ventilator 11/09/23 14:30 11/09/23 14:30 Temperature 98 F Temperature Source Temporal Pulse Rate 110 H 106 H Respiratory Rate 111 H 20 H Blood Pressure 135/91 H 135/91 H Blood Pressure Mean 105 105 Pulse Ox 96 98 Oxygen Delivery Method Mechanical Ventilator Mechanical Ventilator Positive well nourished and well developed General Appearance ED: well developed and NAD HEENT Reports moist mucous membranes Neck no JVD Resp normal respiratory effort and clear to auscultation bilaterally Cardio regular rate and regular rhythm GI non-distended Palpation: tender epigastric, LLQ, RLQ, LUQ, RUQ and suprapubic; Negative for guarding Neuro no sensory deficits noted Neuro Narrative: Patient is nonverbal and bedbound due to cerebral palsy Sensorium / Orientation: alert Motor Exam: general weakness <Dr. Edmundo Lee MD - Last Filed: 11/09/23 16:16> Physical Exam Const Vital Signs: 11/09/23 12:57 11/09/23 13:00 11/09/23 14:00 Temperature 98.5 F 98.4 F 98 F Temperature Source Temporal Temporal Temporal Pulse Rate 97 111 H 98 Respiratory Rate 18 118 H Blood Pressure 131/78 H 126/80 H 134/81 H Blood Pressure Mean 95 95 98 Pulse Ox 100 96 96 Oxygen Delivery Method Mechanical Ventilator Mechanical Ventilator Mechanical Ventilator 11/09/23 14:30 11/09/23 14:30 Temperature 98 F Temperature Source Temporal Pulse Rate 110 H 106 H Respiratory Rate 111 H 20 H Blood Pressure 135/91 H 135/91 H Blood Pressure Mean 105 105 Pulse Ox 96 98 Oxygen Delivery Method Mechanical Ventilator Mechanical Ventilator MDM <Dr. Prosper Cabrera, DO - Last Filed: 11/09/23 15:11> [facility] MDM Narrative Medical decision making narrative: Differential diagnosis includes urinary tract infection, ureteral calculus, pyelonephritis, and viral illness. CBC will be obtained to assess for leukocyt osis and anemia. Comprehensive metabolic profile will be obtained to assess for hepatic function, renal function, and electrolyte abnormalities. Urinalysis will be obtained to assess for urinary tract infection and hematuria. CT scan of the abdomen pelvis will be obtained to assess for bowel obstruction, perforation, ureteral calculus, and pyelonephritis. Lab Data Attestation: I reviewed the patient's lab results. Lab results narrative: CBC was reviewed and was within normal limits. Comprehensive metabolic profile was reviewed and was within normal limits. Labs: Laboratory Results - last 24 hr 11/09/23 11/09/23 13:40 15:24 WBC 9.5 RBC 3.99 L Hgb 12.5 Hct 37.9 MCV 95.0 MCH 31.3 MCHC 33.0 RDW Std Deviation 43.2 RDW Coeff of Anne 12.4 Plt Count 257 MPV 10.3 Immature Gran % (Auto) 0.600 Neut % (Auto) 75.2 H Lymph % (Auto) 15.1 L [place] % (Auto) 7.3 Eos % (Auto) 1.4 Baso % (Auto) 0.4 Absolute Neuts (auto) 7.1 Absolute Lymphs (auto) 1.43 Nucleated RBC % 0 Sodium 138 Potassium 4.0 Chloride 104 Carbon Dioxide 28.0 Anion Gap 6 BUN 6 L Creatinine 0.50 L Estim Creat Clear Calc 114.95 Est GFR (MDRD) Af Amer 182 Est GFR (MDRD) Non-Af 150 BUN/Creatinine Ratio 12.0 Glucose 152 H Calcium 10.1 Total Bilirubin 0.20 AST 17 ALT 29 Alkaline Phosphatase 92 Total Protein 8.7 H Albumin 4.5 Globulin 4.2 Albumin/Globulin Ratio 1.1 Urine Color Yellow Urine Clarity Clear Urine pH 8.0 Ur Specific [place] 1.010 Urine Protein Negative Urine Glucose (UA) Normal Urine Ketones Negative Urine Occult Blood 250 H Urine Nitrite Negative Urine Bilirubin Negative Urine Urobilinogen Normal Ur Leukocyte Esterase 500 H Urine RBC 0-5 SEEN Urine WBC 10-25 SEEN Ur Squamous Epith Cells 0-5 SEEN Urine Bacteria 0 SEEN Urine Mucus 0 SEEN Radiography Diagnostic Testing: Clinical Impression(s) from Imaging Studies Abdomen/Pelvis CT 11/09/23 13:18 IMPRESSION: Nonobstructive right intrarenal calculi. A PEG tube is seen within the body of the stomach. Electronically Signed: Francisco Vogt MD at 15:01 EST , CT scan of the abdomen and pelvis was obtained. There are intrarenal calculi in the right kidney. There is no obstruction. PEG tube was seen within the stomach. There is no bowel obstruction or perforation. There is no acute abnormality noted. This was interpreted by the radiologist was also independently reviewed by myself. Treatment and Re-Evaluation :: Patient was given IV fluids. Care of the patient will be turned over the oncoming physician pending urinalysis results. <Dr. Edmundo Lee MD - Last Filed: 11/09/23 16:16> [facility] Narrative Medical decision making narrative: Differential diagnosis includes urinary tract infection, ureteral calculus, pyelonephritis, and viral illness. CBC will be obtained to assess for leukocytosis and anemia. Comprehensive metabolic profile will be obtained to assess for hepatic function, renal function, and electrolyte abnormalities. Urinalysis will be obtained to assess for urinary tract infection and hematuria. CT scan of the abdomen pelvis will be obtained to assess for bowel obstruction, perforation, ureteral calculus, and pyelonephritis. Patient turned over to me from Dr. Prosper Corbett. Her initial labs are unremarkable with a white count of 9. H&H 12 and 37. He had already previously checked her labs. Electrolytes showed a gap of 6 normal BUN and creatinine. Liver enzymes are unremarkable. UA showed 10-25 white cells no bacteria no nitrates to 50 occult blood. I added a urine culture. Her last urinary tract infections were resistant to many antibiotics but were sensitive to Macrobid. She be placed on Macrobid twice a day for 10 days. Follow-up with Dr. Belle Schuler because of her gross hematuria is not improving she may need cystoscopy. This may or may not be secondary to UTI versus other etiologies. I discussed this at length with her mom her repeat exam at 3:55 PM is unremarkable. Lab Data Labs: Laboratory Results - last 24 hr 11/09/23 11/09/23 13:40 15:24 WBC 9.5 RBC 3.99 L Hgb 12.5 Hct 37.9 MCV 95.0 MCH 31.3 MCHC 33.0 RDW Std Deviation 43.2 RDW Coeff of Anne 12.4 Plt Count 257 MPV 10.3 Immature Gran % (Auto) 0.600 Neut % (Auto) 75.2 H Lymph % (Auto) 15.1 L [place] % (Auto) 7.3 Eos % (Auto) 1.4 Baso % (Auto) 0.4 Absolute Neuts (auto) 7.1 Absolute Lymphs (auto) 1.43 Nucleated RBC % 0 Sodium 138 Potassium 4.0 Chloride 104 Carbon Dioxide 28.0 Anion Gap 6 BUN 6 L Creatinine 0.50 L Estim Creat Clear Calc 114.95 Est GFR (MDRD) Af Amer 182 Est GFR (MDRD) Non-Af 150 BUN/Creatinine Ratio 12.0 Glucose 152 H Calcium 10.1 Total Bilirubin 0.20 AST 17 ALT 29 Alkaline Phosphatase 92 Total Protein 8.7 H Albumin 4.5 Globulin 4.2 Albumin/Globulin Ratio 1.1 Urine Color Yellow Urine Clarity Clear Urine pH 8.0 Ur Specific [place] 1.010 Urine Protein Negative Urine Glucose (UA) Normal Urine Ketones Negative Urine Occult Blood 250 H Urine Nitrite Negative Urine Bilirubin Negative Urine Urobilinogen Normal Ur Leukocyte Esterase 500 H Urine RBC 0-5 SEEN Urine WBC 10-25 SEEN Ur Squamous Epith Cells 0-5 SEEN Urine Bacteria 0 SEEN Urine Mucus 0 SEEN Radiography Diagnostic Testing: Clinical Impression(s) from Imaging Studies Abdomen/Pelvis CT 11/09/23 13:18 IMPRESSION: Nonobstructive right intrarenal calculi. A PEG tube is seen within the body of the stomach. Electronically Signed: Francisco Vogt MD at 15:01 EST , Discharge Plan Triage Chief Complaint: Complaint ED Provider: Prosper Cabrera Dx/Rx/DC Orders Clinical Impression: History of cerebral palsy, Hematuria, History of ventilator dependency, History of kidney stones Instructions: ED Hematuria Prescriptions: New nitrofurantoin monohyd/m-cryst [Macrobid] 100 mg capsule 100 mg PO Q12H 7 Days Qty: 14 0RF Rx Instructions: must administer with a meal/food No Action oxcarbazepine [Trileptal] 300 mg/5 mL (60 mg/mL) suspension 8 ml GT BID montelukast 10 mg tablet 10 mg G-tube QPM PRN (Reason: Allergic Reaction) baclofen 20 MG tablet 30 mg GT TID Patient Comments: pain ferrous sulfate 15 mg iron (75 mg)/mL syringe 5 ml feeding tube .Mon, Luann diazepam 5 mg/5 mL (1 mg/mL) Solution 7 mg feeding tube BID diazepam 5 mg/5 mL (1 mg/mL) Solution 5 mg feeding tube DAILY@1400 methenamine hippurate [Hiprex] 1 gram tablet 1 g feeding tube BID miconazole nitrate [Monistat 7] 2 % Cream 1 appful VAGINAL DAILY PRN (Reason: YEAST) ibuprofen 100 mg/5 mL Suspension 400 mg PO Q6H PRN (Reason: Pain) sodium chloride 0.9 % Solution For Nebulization 3 - 6 ml INHALATION Q2H PRN (Reason: Congestion) ascorbic acid (vitamin C) 500 mg/5 mL Syrup 500 mg feeding tube BID cholecalciferol (vitamin D3) 50 mcg (2,000 unit) Capsule 50 mcg feeding tube DAILY multivit-folic acid-herbal 275 400 mcg-200 mg/30 mL Liquid 5 ml PO DAILY naphazoline 0.012 % Drops 2 drp OPHTHALMIC (EYE) DAILY PRN (Reason: allergies) acetaminophen 160 mg/5 mL Liquid 640 mg PO Q6H PRN (Reason: pain/fever) magnesium hydroxide [Milk of Magnesia] 400 mg/5 mL Suspension 15 - 60 ml PO DAILY PRN (Reason: Constipation) fluconazole 10 mg/mL Suspension For Reconstitution 150 mg feeding tube PRN PRN (Reason: yeast) bismuth subsalicylate [Pepto-Bismol] 262 mg/15 mL Suspension 524 mg PO Q30M PRN (Reason: antidiarrheal) Rx Instructions: do not exceed 8 doses in a 24 hour period Debrox 6.5 % Drops 5 drp EACH EAR DAILY PRN (Reason: Ear Wax) nystatin 100,000 unit/gram Powder 1 applic TOPICAL BID PRN (Reason: redness) acidophilus-pectin, citrus 25 million cell -100 mg tablet 1 tab G-tube DAILY Rx Instructions: Pqep-lge-bwozhum nutritional supplements Powder 1 ea PO BID Rx Instructions: GIVEN VIIA G-TUBE BID docusate sodium 60 mg/15 mL Syrup 60 mg feeding tube DAILY meropenem 1 gram Recon Soln 1 g IV Q8 7 Days Qty: 21 0RF Rx Instructions: dx: esbl infection weekly bmp, cbc, and LFT while on iv abx. Fax to [phone] Firvanq 25 mg/mL Recon Soln 125 mg PO Q6 14 Days Qty: 280 0RF levalbuterol HCl 1.25 mg/3 mL solution for nebulization 1.25 mg INHALATION BID Qty: 90 5RF guaifenesin 100 mg/5 mL liquid 200 mg GT Q4H PRN PRN (Reason: thick secretions) Qty: 1000 12RF (DME) lancets [Embrace Lancets] 30 gauge misc See Rx Instructions .Route Qty: 200 8RF Rx Instructions: 4x/day (DME) True Metrix Pro Test Strip Strip See Rx Instructions .ROUTE .MEDSUPPLY Qty: 400 3RF Rx Instructions: 4 times daily, plus extra for mental status change cetirizine 5 mg/5 mL solution 10 mg PO DAILY Qty: 300 11RF fluticasone propionate [Flovent HFA] 44 mcg/actuation HFA aerosol inhaler 2 puff INHALATION BID Qty: 10.6 11RF Rx Instructions: administer with spacer (DME) pen needle, diabetic [BD Ultra-Fine Priyanka Pen Needle] 32 gauge x 5/32 needle See Rx Instructions .ROUTE .MEDSUPPLY Qty: 360 3RF Rx Instructions: 5 times daily insulin glargine [Basaglar KwikPen U-100 Insulin] 100 unit/mL (3 mL) insulin pen 20 unit subcut QPM Qty: 15 5RF levalbuterol HCl 1.25 mg/3 mL solution for nebulization 1.25 mg INHALATION Q4H PRN (Reason: sob) Qty: 150 11RF insulin aspart U-100 100 unit/mL (3 mL) insulin pen 14 unit subcut 4X/DAY MDD 80 Qty: 30 5RF Rx Instructions: 160 +3, 201 +5, 241 +8, 280 +10 This is sliding scale, caregiver understands how to administer. Primary Care Provider: Sandra Bermudez Referrals: Samaria Anaya MD [Med Staff - Active Staff] - 3-5 Days Sandra Bermudez DO [Primary Care Provider] - As Needed Activity Restrictions/Additional Instructions: Antibiotic Macrobid 1 pill twice a day for 7 days. For a possible urinary tract infection. Call and follow-up with Dr. ANAYA of urology. For further evaluation. The blood in your urine may be from a urinary tract infection. It could be from other things. If it does not clear up with antibiotic she may need to do further evaluation. Disposition Disposition: Home, Self Care
--- NOTE | 2023-11-09 13:18 | CT_ITS ---
STUDY: CT ABDOMEN AND PELVIS WITHOUT CONTRAST REASON FOR EXAM: Female, 33 years old. Hematuria. Cerebral palsy and paraplegia. Tracheostomy. Prior spinal fusion. RADIATION DOSAGE (If Supplied By Facility): CTDIvol = ( 9.03 ) mGy, DLP = ( 466.81 ) mGycm TECHNIQUE: Transaxial images were obtained from the dome of the diaphragm to the symphysis pubis without oral contrast, and without intravenous contrast. Sagittal and coronal images were reconstructed. Individualized dose optimization techniques were used for this CT. COMPARISON: Comparison is made with prior study dated March 13, 2022. FINDINGS: Chest deformity. Mild degree of increased markings at the left lung base suggestive of atelectasis. The visualized portions of the heart are within normal limits. Normal liver. Normal gallbladder and extrahepatic biliary system. Normal spleen. Normal pancreas. Normal bilateral adrenal glands. There are multiple nonobstructive right intrarenal calculi. Normal left kidney. A PEG tube is seen in the body of the stomach. Normal small intestine. Normal colon. The appendix is visualized and appears normal. Normal abdominal aorta. Normal inferior vena cava. Normal retroperitoneum. Normal urinary bladder. Surgical clips are seen along the right anterior abdominal wall. Was again, is evidence of thoracolumbar spinal fixation hardware. Marked degree of dextroscoliosis of the lumbar spine and levoscoliosis of the thoracic spine. CT/Abdomen/Pelvis without Cont IMPRESSION: Nonobstructive right intrarenal calculi. A PEG tube is seen within the body of the stomach. Electronically Signed: Francisco Vogt MD at 15:01 EST ,
[2023-11-09 13:47] LABS: Absolute Lymphocyte Count 1.43 X10^3/uL (0.83-4.51); Absolute Neutrophil Count 7.1 X10^3/uL (2.0-7.7); Basophil# 0.04 X10^3/uL; Basophil% 0.4 % (0-1); Eosinophil# 0.13 X10^3/uL; Eosinophils% 1.4 % (0-5); Hematocrit 37.9 % (37-47); Hemoglobin 12.5 g/dL (12.0-15.0); Lymphocyte # 1.43 X10^3/ul (0.83-4.51); Lymphocyte % 15.1 % (19-41); Mean Corpuscular Hgb 31.3 pg (27.0-32.0); Mean Platelet Vol. 10.3 fl (6.2-12.0); Monocyte# 0.69 X10^3/uL; Monocyte% 7.3 % (0-10); NRBC Flagged by Analyzer 0 % (0-5); Neutrophil # 7.14 X10^3/uL (2.7-7.7); Neutrophil % 75.2 % (47-70); Platelet Count 257 K/mm3 (150-450); RBC Distribution Width CV 12.4 % (11.6-14.6); RBC Distribution Width SD 43.2 fl (35.1-43.9); Red Blood Count 3.99 M/mm3 (4.2-5.4); White Blood Count 9.5 K/mm3 (4.4-11.0)
[2023-11-09] MEDS: 0.9% Normal Saline (1000mL) 1,000 ML 1000 ML IV (13:55)
[2023-11-09 14:04] LABS: ALB/GLOB Ratio 1.1 RATIO (0.9-2.4); AST(SGOT) 17 U/L (15-37); Alanine Aminotransfer ALT/SGPT 29 U/L (13-56); Albumin, Serum 4.5 g/dL (3.2-5.0); Alkaline Phosphatase 92 U/L (45-117); Anion Gap 6 (5-15); BUN 6 mg/dL (7-18); Calcium,Total 10.1 mg/dL (8.5-10.1); Chloride 104 mmol/L (98-107); EST Glomerular Filtration Rate 150 mL/min (>60); Est Glom Filt Rate - Afr Amer 182 mL/min (>60); Estimated Creatinine Clearance 114.95 ml/min; Globulin 4.2 g/dL (2.2-4.2); Glucose 152 mg/dL (74-106); Protein, Total 8.7 g/dL (6.4-8.2); Sodium Level 138 mmol/L (136-145)
[2023-11-09 15:30] LABS: Bacteria 0 SEEN /hpf (None Seen); Mucous, Urine 0 SEEN /hpf (<or=2+)
[2023-11-09 15:32] LABS: Color, Urine Yellow (Yellow); Glucose, Dipstick Normal (Normal); Ketone-Dipstick Negative (Negative); Leukocyte Esterase-Dipstick 500 /ul (Negative); Nitrite-Dipstick Negative (Negative); Occult Blood-Urine 250 /ul (Negative); Protein-Dipstick Negative (Negative); Urine Bilirubin Dipstick Negative (Negative); Urine Clarity Clear (Clear); Urine Urobilinogen Normal (Normal)
[2023-11-09 15:39] LABS: Red Blood Cells-Urine 0-5 SEEN /hpf (0-5); Squamous Epithelial Cells - UA 0-5 SEEN /hpf (5-10); White Blood Cells 10-25 SEEN /hpf (0-5)
[2023-11-09] MEDS: Nitrofurantoin Macrocrystals 100 MG Capsule PO (16:09)
--- NOTE | 2023-11-09 16:37 | NURSING ---
CALLED [facility], ETA IS 3 TO 4 HRS
--- NOTE | 2023-11-09 17:03 | NURSING ---
CALLED [facility], PER FAMILY REQUEST, NO [facility] AVAILABLE
--- NOTE | 2023-11-09 20:09 | ED.RN ---
CALLED [facility] AT 1999 REQUESTING AN UPDATE ON THE ETA. THEY SAID TRANSPORT WAS DELAYED 90 MIN-2 HRS DUE A CRITICAL CALLED THAT TOOK PRIORITY. I REQUESTED THAT WE WOULD BE NOTIFIED IF AND WHEN FUTURE ETA'S ARE CHANGED. SO, NEW ETA IS ABOUT 2200.
--- NOTE | 2023-11-09 20:42 | ED.RN ---
CALLED [facility]YSIC[facility] WONDERING IF THEY HAD ATTEMPTED [facility] AFTER DELAYED ETA. THEY ANSWERED NO ONE IS AVAILABLE BECAUSE NO ONE HAS A VENT. I ASKED WHAT TIME THEY TRIED OUTSOURCING, THEY ANSWERED NOT SURE WHAT TIME BUT ONLY [facility] WOULD HAVE A VENT BUT THEY ARE UNAVAILABLE. SO ETA IS 2234.
--- NOTE | 2023-11-09 22:40 | ED.RN ---
PHYSICIANS CALLED AT 2214 UPDATING US WITH AN ETA THEY SAID THE RIDE SHOULD ARRIVE WITH IN THE HOUR. I CALLED THEM AT 2235 TO GET A MORE EXACT ETA ON ARRIVAL THEY ANSWERED SAYING THEY GOT TIED UP WITH A TRAMA AND ITS GOING TO BE ANOTHER 45-60 MINUTES UNTIL ARRIVAL. WE WERE NOT NOTIFIED ABOUT THIS DELAY BEFORE HAND, I REMINDED THEM AGAIN THAT WE NEED TO BE UPDATED WHEN DELAYS HAPPEN. I ASKED THEM AT 2240 IF THEY COULD TRY OUTSOURCING AGAIN TO SEE IF THERE IS ANY OTHER AVAILABILITY, THEY CALLED BACK AT 2246 SAYING THEIR CREW IS GOING TO BE AT OUR FACILITY AT 2325.
--- NOTE | 2023-11-09 23:44 | ED.RN ---
CALLED PHYSIC[facility]ANS AGAIN AT 2340 TO ASK FOR AN UPDATED ETA, THEY SAID THE CREW SHOULD BE AT OUR FACILITY IN 8 MINUTES
== END 2023-11-10 00:33 | disposition home or self-care (01) ==
PROVIDERS: Emergency Provider Emergency Medicine; PCP Internal Medicine; Visit Provider Emergency Medicine
DX: R31.9 Hematuria, unspecified (principal); Z93.0 Tracheostomy status; Z99.11 Dependence on respirator [ventilator] status; Z93.1 Gastrostomy status; G80.9 Cerebral palsy, unspecified; E11.9 Type 2 diabetes mellitus without complications; N20.0 Calculus of kidney; Z87.442 Personal history of urinary calculi
CPT/HCPCS: 74176; 80053; 81001; 85025; 87086; 96360; 99283; J7030

== ENCOUNTER → 2024-02-01 | Outpatient (CLI) | payer MEDICAID, SELFPAY ==
[2024-02-01 14:44] LABS: Color, Urine Yellow (Yellow); Glucose, Dipstick 1000 mg/dl (Normal); Ketone-Dipstick Negative (Negative); Leukocyte Esterase-Dipstick 500 /ul (Negative); Nitrite-Dipstick Positive (Negative); Occult Blood-Urine 50 /ul (Negative); Protein-Dipstick 15 mg/dl (Negative); Specific Gravity, Urine 1.005 (1.002-1.030); Urine Bilirubin Dipstick Negative (Negative); Urine Clarity Cloudy (Clear); Urine Urobilinogen Normal (Normal)
== END | disposition home or self-care (01) ==
PROVIDERS: PCP Internal Medicine; Referring Provider Urology; Visit Provider Urology
DX: N39.0 Urinary tract infection, site not specified (principal)
CPT/HCPCS: 81002; 87086; 87088; 87186

== ENCOUNTER → 2024-08-23 | Outpatient (CLI) | payer MEDICAID, SELFPAY ==
[2024-08-23 10:02] LABS: Absolute Lymphocyte Count 1.42 X10^3/uL (0.83-4.51); Absolute Neutrophil Count 6.6 X10^3/uL (2.0-7.7); Basophil# 0.02 X10^3/uL; Basophil% 0.2 % (0-1); Eosinophils% 1.1 % (0-5); Hematocrit 36.7 % (37-47); Hemoglobin 13.1 g/dL (12.0-15.0); Lymphocyte # 1.42 X10^3/ul (0.83-4.51); Lymphocyte % 16.2 % (19-41); Mean Corp Hgb Conc 35.7 g/dL (32-36); Mean Corpuscular Hgb 32.6 pg (27.0-32.0); Mean Corpuscular Volume 91.3 fL (81-99); Monocyte# 0.56 X10^3/uL; Monocyte% 6.4 % (0-10); NRBC Flagged by Analyzer 0 % (0-5); Neutrophil # 6.61 X10^3/uL (2.7-7.7); Neutrophil % 75.5 % (47-70); POSITIVE COUNT YES; Platelet Count 217 K/mm3 (150-450); RBC Distribution Width CV 12.1 % (11.6-14.6); RBC Distribution Width SD 40.4 fl (35.1-43.9); Red Blood Count 4.02 M/mm3 (4.2-5.4); White Blood Count 8.8 K/mm3 (4.4-11.0)
[2024-08-23 10:34] LABS: AST(SGOT) 15 U/L (15-37); Alanine Aminotransfer ALT/SGPT 20 U/L (13-56); Alkaline Phosphatase 68 U/L (45-117); Anion Gap 8 (5-15); BUN 5 mg/dL (7-18); BUN/Creat Ratio 13.2 RATIO (10-20); Calcium,Total 9.8 mg/dL (8.5-10.1); Chloride 94 mmol/L (98-107); Creatinine, Serum 0.38 mg/dL (0.55-1.02); EST Glomerular Filtration Rate 206 mL/min (>60); Est Glom Filt Rate - Afr Amer 249 mL/min (>60); Globulin 3.9 g/dL (2.2-4.2); Glucose 133 mg/dL (74-106); Potassium 3.8 mmol/L (3.5-5.1); Protein, Total 7.9 g/dL (6.4-8.2); Sodium Level 129 mmol/L (136-145)
[2024-08-23 11:25] LABS: Vitamin B12 1454 pg/mL (211-911); Vitamin D,25 Hydroxy 83.4 ng/mL
[2024-08-29 15:07] LABS: Trileptal-Oxcarbazepine 25 ug/mL (10-35)
== END | disposition home or self-care (01) ==
PROVIDERS: PCP Internal Medicine; Referring Provider Psychiatry & Neurology Neurology; Visit Provider Psychiatry & Neurology Neurology
DX: G40.909 Epilepsy, unspecified, not intractable, without status epilepticus (principal); R53.83 Other fatigue; R73.9 Hyperglycemia, unspecified
CPT/HCPCS: 36415; 80053; 82306; 82542; 82607; 82746; 84443; 85025

== ENCOUNTER → 2024-08-25 | Outpatient (CLI) | payer MEDICAID, SELFPAY ==
[2024-08-25 09:34] LABS: Mucous, Urine 0 SEEN /hpf (<or=2+)
[2024-08-25 09:43] LABS: Color, Urine Yellow (Yellow); Glucose, Dipstick Normal (Normal); Ketone-Dipstick Negative (Negative); Leukocyte Esterase-Dipstick 500 /ul (Negative); Nitrite-Dipstick Positive (Negative); Occult Blood-Urine 150 /ul (Negative); Protein-Dipstick Negative (Negative); Urine Bilirubin Dipstick Negative (Negative); Urine Clarity Sl. Cloudy (Clear); Urine Urobilinogen Normal (Normal)
[2024-08-25 09:50] LABS: Amorphous Sediment 1+; Bacteria 3+ /hpf (None Seen); Red Blood Cells-Urine 5-10 SEEN /hpf (0-5); Squamous Epithelial Cells - UA 0-5 SEEN /hpf (5-10); White Blood Cells 25-50 SEEN /hpf (0-5)
== END | disposition home or self-care (01) ==
PROVIDERS: PCP Internal Medicine; Referring Provider Internal Medicine; Visit Provider Internal Medicine
DX: R73.9 Hyperglycemia, unspecified (principal)
CPT/HCPCS: 81001

== ENCOUNTER → 2024-09-04 | Outpatient (CLI) | payer MEDICAID, SELFPAY ==
[2024-09-04 11:06] LABS: Hemoglobin A1c 5.2 % (3.8-5.6)
[2024-09-04 11:47] LABS: Color, Urine Yellow (Yellow); Glucose, Dipstick Normal (Normal); Ketone-Dipstick Negative (Negative); Leukocyte Esterase-Dipstick 500 /ul (Negative); Nitrite-Dipstick Positive (Negative); Occult Blood-Urine 25 /ul (Negative); Protein-Dipstick 30 mg/dl (Negative); Urine Bilirubin Dipstick Negative (Negative); Urine Clarity Sl. Cloudy (Clear); Urine Urobilinogen Normal (Normal); Urine pH 6.5 (5.0 - 8.0)
== END | disposition home or self-care (01) ==
LOC: LAB 04:23
PROVIDERS: PCP Internal Medicine; Visit Provider Internal Medicine
DX: E11.9 Type 2 diabetes mellitus without complications (principal); R39.9 Unspecified symptoms and signs involving the genitourinary system
CPT/HCPCS: 36415; 81002; 83036; 87086; 87088; 87186

== ENCOUNTER → 2024-09-19 | Outpatient (CLI) | payer MEDICARE, MEDICAID, SELFPAY ==
[2024-09-19 11:50] LABS: Color, Urine Straw (Yellow); Glucose, Dipstick Normal (Normal); Ketone-Dipstick Negative (Negative); Leukocyte Esterase-Dipstick 100 /ul (Negative); Nitrite-Dipstick Negative (Negative); Occult Blood-Urine Negative /ul (Negative); Protein-Dipstick Negative (Negative); Specific Gravity, Urine 1.005 (1.002-1.030); Urine Bilirubin Dipstick Negative (Negative); Urine Clarity Clear (Clear); Urine Urobilinogen Normal (Normal)
== END | disposition home or self-care (01) ==
LOC: LABSPEC 11:02
PROVIDERS: PCP Internal Medicine; Referring Provider Internal Medicine; Visit Provider Internal Medicine
DX: R39.9 Unspecified symptoms and signs involving the genitourinary system (principal)
CPT/HCPCS: 81002; 87086

== ENCOUNTER → 2024-10-11 | Outpatient (CLI) | payer MEDICARE, MEDICAID, SELFPAY ==
[2024-10-11 09:01] LABS: Mucous, Urine 0 SEEN /hpf (<or=2+)
[2024-10-11 09:12] LABS: Absolute Lymphocyte Count 1.73 X10^3/uL (0.83-4.51); Absolute Neutrophil Count 4.2 X10^3/uL (2.0-7.7); Basophil# 0.04 X10^3/uL; Basophil% 0.6 % (0-1); Eosinophil# 0.16 X10^3/uL; Eosinophils% 2.3 % (0-5); Hematocrit 39.1 % (37-47); Hemoglobin 13.6 g/dL (12.0-15.0); Lymphocyte # 1.73 X10^3/ul (0.83-4.51); Lymphocyte % 25.2 % (19-41); Mean Corp Hgb Conc 34.8 g/dL (32-36); Mean Corpuscular Hgb 31.6 pg (27.0-32.0); Mean Corpuscular Volume 90.9 fL (81-99); Mean Platelet Vol. 10.9 fl (6.2-12.0); Monocyte# 0.59 X10^3/uL; Monocyte% 8.6 % (0-10); NRBC Flagged by Analyzer 0 % (0-5); Neutrophil # 4.23 X10^3/uL (2.7-7.7); Neutrophil % 61.7 % (47-70); POSITIVE COUNT YES; RBC Distribution Width CV 11.8 % (11.6-14.6); RBC Distribution Width SD 39.4 fl (35.1-43.9); White Blood Count 6.9 K/mm3 (4.4-11.0)
[2024-10-11 09:17] LABS: Color, Urine Yellow (Yellow); Glucose, Dipstick Normal (Normal); Ketone-Dipstick Negative (Negative); Leukocyte Esterase-Dipstick 500 /ul (Negative); Nitrite-Dipstick Positive (Negative); Occult Blood-Urine 50 /ul (Negative); Protein-Dipstick 15 mg/dl (Negative); Specific Gravity, Urine 1.005 (1.002-1.030); Urine Bilirubin Dipstick Negative (Negative); Urine Clarity Sl. Cloudy (Clear); Urine Urobilinogen Normal (Normal)
[2024-10-11 09:25] LABS: Bacteria 3+ /hpf (None Seen); Squamous Epithelial Cells - UA 0-5 SEEN /hpf (5-10); White Blood Cells 25-50 SEEN /hpf (0-5)
[2024-10-11 09:25] LABS: Vitamin D,25 Hydroxy 85.5 ng/mL
[2024-10-11 09:26] LABS: Red Blood Cells-Urine 0-5 SEEN /hpf (0-5)
[2024-10-11 09:35] LABS: ALB/GLOB Ratio 1.1 RATIO (0.9-2.4); AST(SGOT) 19 U/L (15-37); Alanine Aminotransfer ALT/SGPT 28 U/L (13-56); Albumin, Serum 4.4 g/dL (3.2-5.0); Alkaline Phosphatase 81 U/L (45-117); Anion Gap 12 (5-15); BUN 7 mg/dL (7-18); Calcium,Total 10.5 mg/dL (8.5-10.1); Chloride 94 mmol/L (98-107); Cholesterol 223 mg/dL (200); Creatinine, Serum 0.37 mg/dL (0.55-1.02); EST Glomerular Filtration Rate 213 mL/min (>60); Est Glom Filt Rate - Afr Amer 258 mL/min (>60); Globulin 4.1 g/dL (2.2-4.2); Glucose 109 mg/dL (74-106); High Density Lipoprotein 42 mg/dL; Potassium 4.4 mmol/L (3.5-5.1); Protein, Total 8.5 g/dL (6.4-8.2); Sodium Level 134 mmol/L (136-145); Triglycerides 423 mg/dL
[2024-10-11 11:15] LABS: Platelet Estimate SLT INC (ADEQ)
[2024-10-11 13:42] LABS: Microalbumin,Random Urine 40.9 mg/L (NO RANGE EST.); Microalbumin:Creatinine Ratio 211.9 mg/g CRE (<30 mg/g CRE)
== END | disposition home or self-care (01) ==
LOC: LAB 07:10
PROVIDERS: PCP Internal Medicine; Visit Provider Internal Medicine
DX: R80.9 Proteinuria, unspecified (principal); E11.9 Type 2 diabetes mellitus without complications; E78.5 Hyperlipidemia, unspecified; E55.9 Vitamin D deficiency, unspecified
CPT/HCPCS: 36415; 80053; 80061; 81001; 82043; 82306; 82570; 84443; 85025

== ENCOUNTER 2024-11-02 13:58 | Inpatient (IN) | payer MEDICARE, MEDICAID, SELFPAY ==
[2024-11-02] VITALS (9 sets, daily range): BP systolic 122–159; BP diastolic 72–90; PULSE 71–93; RESP 16–22; TEMP 36.6–37.9; O2SAT 93–100; BMI 30.8; BMI 25.0
--- NOTE | 2024-11-02 14:28 | EDS_ITS ---
HPI History of Present Illness Chief Complaint: Back Informant: patient Onset/Context/Timing Onset: Days Context: Gradual Onset Timing: Continuous Current Severity: Mild Maximum Severity: 03/22 Narrative Narrative: 34-year-old female history of cerebral palsy, nonverbal, diabetes, back rods, vent dependent, PEG tube and Owens catheter. Mom was concerned that she has lumps in her lower back. Thinks are from the rods and possibly screws came loose. But also the last 24 hours she has developed a fever. Diarrhea. Mom recently had influenza. Prior similar symptoms: Yes Recent Illness/Hospitalization: No PFSH PFS Medical History ESBL (extended spectrum beta-lactamase) producing bacteria infection On tube feeding diet History of Clostridium difficile infection MRSA infection Redness of skin Bladder disease History of renal disease Seizures Dietary restriction On home oxygen therapy Non-smoker Renal calculi Skin tag of vaginal mucosa Renal calculus or stone PICC (peripherally inserted central catheter) in place Bedbound Pancreatitis Kidney stones Ventilator dependent Urinary tract infection due to extended-spectrum beta lactamase (ESBL) producing Escherichia coli Recurrent UTI Staghorn renal calculus Diabetes Chronic respiratory failure Allergic rhinitis due to other allergen Paraplegia Visual disturbance Amenorrhea Neuromuscular scoliosis Hyperglycemia Vitamin D deficiency Respiratory acidosis Thrush Lactic acid acidosis Bronchitis Irregular menstrual cycle 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 Bronchiectasis without acute exacerbation Severe sepsis Seizure Cerebral palsy Pneumonia Home Medications ?Medication ?Instructions ?Recorded ?Last Taken ?Type baclofen 20 mg tablet 30 mg G-tube TID muscle spas ms 09/02/13 02/24/22 History oxcarbazepine 300 mg/5 mL (60 8 ml G-tube BID seizure 08/28/17 02/24/22 History mg/mL) oral suspension (Trileptal) diazepam 5 mg/5 mL (1 mg/mL) oral 5 mg feeding tube DA JANAK@1400 spasms 05/20/21 02/24/22 History solution diazepam 5 mg/5 mL (1 mg/mL) oral 7 mg feeding tube BI D spasms 05/20/21 02/24/22 History solution ascorbic acid (vitamin C) 500 mg/5 500 mg feeding tube BID SUPPLEMENT 12/12/21 02/24/22 History mL oral syrup cholecalciferol (vitamin D3) 50 50 mcg feeding tube DA JANAK 12/12/21 02/24/22 History mcg (2,000 unit) capsule SUPPLEMENT ibuprofen 100 mg/5 mL oral 400 mg PO Q6H PRN Pain 04/0 10/0402/24/22 History suspension miconazole nitrate 2 % vaginal 1 appful vaginal DAILY PRN YEAST 12/12/21 1 Week Ago History cream (Monistat 7) ~02/17/22 multivitamin-folic acid-herbal 5 ml PO DAILY SUPPLEMEN T 12/12/21 02/23/22 H istory no.275 400 mcg-200 mg/30 mL oral liquid sodium chloride 0.9 % for 3 - 6 ml inhalation Q2H PRN 12/12/21 02/23/22 History nebulization Congestion levalbuterol HCl 1.25 mg/3 mL 1.25 mg (3 mL) inhalatio n BID 01/16/22 02/23/22 Rx solution for nebulization BREATHING #90 mL naphazoline 0.012 % eye drops 2 drp ophthalmic (eye) D AILY PRN 02/24/22 02/23/22 History allergies acetaminophen 160 mg/5 mL oral 640 mg PO Q6H PRN pain/ fever 03/31/22 Unknown History liquid acidophilus 25 million 1 tab G-tube DAILY supplemen t 03/31/22 Unknown History cell-pectin, citrus 100 mg tablet bismuth subsalicylate 262 mg/15 mL 524 mg PO Q30M PRN antidiarrheal 03/31/22 Unknown History oral suspension (Pepto-Bismol) carbamide peroxide 6.5 % ear drops 5 drp EACH EAR ZACHERY Y PRN Ear Wax 03/31/22 Unknown History (Debrox) fluconazole 10 mg/mL oral 150 mg feeding tube PRN PRN yeast 03/31/22 Unknown History suspension magnesium hydroxide 400 mg/5 mL 15 - [address] N 03/31/22 Unknown History oral suspension (Milk of Magnesia) Constipation nystatin 100,000 unit/gram topical 1 applic topical BI D PRN redness 03/31/22 Unknown History powder ferrous sulfate 15 mg iron (75 5 ml feeding tube .Mon, Luann 08/24/22 Unknown History mg)/mL oral syringe (ORAL USE) supplement methenamine hippurate 1 gram 1 g feeding tube BID infe ction 08/24/22 Unknown History tablet (Hiprex) prevention montelukast 10 mg tablet 10 mg G-tube QPM PRN Allergi c 08/24/22 Unknown History Reaction docusate sodium 60 mg/15 mL oral 60 mg feeding tube DA JANAK Check 08/29/22 Unknown History syrup with primary doctor nutritional supplements 1 ea PO BID Check with prima ry 08/29/22 Unknown History doctor meropenem 1 gram intravenous 1 g IV Q8 7 days #21 ea 1 11/04/21 Unknown Rx solution vancomycin 25 mg/mL oral solution 125 mg (5 mL) PO Q6 14 days #280 mL 09/03/22 Unknown Rx (Firvanq) guaifenesin 100 mg/5 mL oral liquid 200 mg (10 mL) G-t ube Q4H PRN PRN 10/16/22 Unknown Rx thick secretions #1,000 mL blood sugar diagnostic (True #400 ea 02/23/23 Unknown Rx Metrix Pro Test Strip) cetirizine 5 mg/5 mL oral solution 10 mg (10 mL) PO DA JANAK allergy 03/18/23 Unknown Rx symptoms #300 mL nitrofurantoin 100 mg PO Q12H 7 days #14 ca ps 11/09/23 Unknown Rx monohydrate/macrocrystals 100 mg capsule (Macrobid) lancets 30 gauge (Embrace Lancets) #200 ea 11/11/23 Un known Rx fluticasone propionate 44 2 puff inhalation BID Check with 05/23/24 Unknown Rx mcg/actuation HFA aerosol inhaler primary doctor #10.6 grams (Flovent HFA) levalbuterol HCl 1.25 mg/3 mL 1.25 mg (3 mL) inhalatio n Q4H PRN 05/23/24 Unknown Rx solution for nebulization sob #150 mL pen needle, diabetic 32 gauge x #360 ea 07/24/24 Unkno wn Rx 32 (BD Ultra-Fine Priyanka Pen Needle) Novolog FlexPen U-100 Insulin 100 18 unit (0.18 mL) conklin bcut TID #33 mL 10/24/24 Unknown Rx unit/mL (3 mL) subcutaneous (insulin aspart U-100) blood sugar diagnostic (True #150 ea 10/24/24 Unknown Rx Metrix Glucose Test Strip) insulin glargine 100 unit/mL (3 20 unit (0.2 mL) subcu t QPM #15 mL 10/24/24 Unknown Rx mL) subcutaneous pen (Basaglar KwikPen U-100 Insulin) Allergy/AdvReac Type Severity Reaction Status Date / Time linezolid Allergy Severe Other - Verified 11/02/24 14:07 seizure & coma vancomycin Allergy Severe Other - Verified 11/02/24 14:07 kidney failure tobramycin Allergy Intermediate Other - Verified 11/02/24 14:07 turned beet red nafcillin Allergy Mild Rash Verified 11/02/24 14:07 benzoin Allergy Unknown Rash Verified 11/02/24 14:07 milk Allergy Unknown Other Verified 11/02/24 14:07 soy Allergy Unknown Other Verified 11/02/24 14:07 polyethylene glycol 3350 AdvReac Unknown Hives Verified 11/02/24 14:07 (From Miralax) Family History Grandmother Cancer maternal Other Adopted Surgical History Presence of intrathecal baclofen pump Gastrostomy tube in place Status post Jorje fundoplication H/O spinal fusion rods to back surgery on gland under tongue eyes straightened derotatox ostomies tendonatomies Tracheostomy status Social History household members: other details: Mother and is vent dependent housing: house Smoking Status: Never smoker second hand exposure: No alcohol intake: never substance use type: does not use ROS ROS ED ROS Narrative Fever. Diarrhea. Review of Systems ROS Unobtainable: other Details: Limited due to the patient being nonverbal. Review of systems per mom. Constitutional Constitutional ED: Reports fever(s) Eyes Eyes: Denies blurry vision ENT ENT ED: Denies ear pain Cardiovascular Cardiovascular: Denies chest pain Respiratory/Chest Respiratory/Chest: Reports cough Gastrointestinal Gastrointestinal: Denies abdominal pain Genitourinary Genitourinary ED: Denies dysuria or hematuria Musculoskeletal Musculoskeletal: Denies arthralgias Integumentary Denies abscess Neurologic Neurologic: Denies headache(s) Psychiatric Psychiatric: Denies anxiety Endocrine Endocrinology: Denies cold intolerance Hematologic/Lymphatic Hematologic/Lymphatic: Reports none Allergic/Immunologic Allergic/Immunologic ED: Denies mouth swelling, tongue swelling or urticaria EXAM Physical Exam Narrative Exam Narrative: 34-year-old female no vital signs stable temperature 100.3. Does not look septic or toxic. Does not patient is lying flat in bed. Had left chronic vent. Through trach. Patient is nonverbal. Mom at bedside. H EENT exam eyes are open. Pupils round react to light. Moist mucous membranes. Neck nontender. Tracheostomy. Lungs clear to auscultation bilaterally. Heart regular rhythm rate about 90 no murmur. Chest wall ribs nontender. Abdomen soft nondistended normal bowel sounds without peritoneal signs. Well-healed surgical scars. PEG tube left upper quadrant. Extremities can move his upper and lower extremities weakly. Muscular atrophy. History of cerebral palsy. Patient is awake. Eyes are open. Nonverbal. Const Vital Signs: 11/02/24 14:01 11/02/24 14:06 11/02/24 16:00 Temperature 100 F H 100.3 F H 100.3 F H Temperature Source Temporal Temporal Temporal Pulse Rate 93 91 89 Respiratory Rate 18 18 16 Blood Pressure 135/90 H 135/90 H 142/87 H Blood Pressure Mean 105 105 105 Pulse Ox 93 100 100 Oxygen Delivery Method Mechanical Ventilator Mechanical Ventilator Mechanical Ventilator 11/02/24 17:00 11/02/24 18:00 11/02/24 18:00 Temperature 97.9 F 98.2 F Temperature Source Temporal Temporal Pulse Rate 84 71 Respiratory Rate 16 19 H Blood Pressure 142/87 H 122/72 H 122/72 H Blood Pressure Mean 105 88 88 Pulse Ox 100 100 Oxygen Delivery Method Mechanical Ventilator Mechanical Ventilator Positive well nourished; Negative for obese or contractures Constitutional Narrative: Muscular atrophy in upper and lower extremities with a history of cerebral palsy. General Appearance ED: Negative for contractures or pallor Nutritional Appearance: Negative for obese HEENT Reports moist mucous membranes Negative for trauma or tenderness Eyes PERRL and EOMs intact bilaterally Neck no lymphadenopathy, supple and no JVD Neck Narrative: Trach in place. Vent dependent. Chest Wall inspection of chest normal and palpation of chest normal Resp normal respiratory effort and clear to auscultation bilaterally Auscultation: Negative for rales, rhonchi or wheezes Cardio regular rate, regular rhythm, S1 normal heart sound, S2 normal heart sound and no murmurs Rate: Negative for bradycardia or tachycardic Rhythm: Negative for abnormal rhythm GI normal to inspection, nondistended, normoactive bowel sounds, non-tender, non- distended and no masses Palpation: soft; Negative for tender, guarding, splenomegaly, mass or rebound tenderness present Extremity Negative for normal to inspection Extremity Narrative: Limited movement. Atrophied. Cerebral palsy history. No edema. No tenderness. No swelling. No redness. General Extremety ED: Negative for edema or tenderness General Extremity: Negative for edema Neuro Neuro Narrative: Eyes open. Nonverbal. Sensorium / Orientation: alert and lethargic Motor Exam: general weakness; Negative for strength 5/5 throughout Psych mental status grossly normal Skin no rashes or lesions noted and no wounds General Skin Exam: Negative for jaundice or pallor Lesions: No lesion noted Rashes: No rashes noted Trauma: Negative for abrasion MDM MDM MDM Narrative Medical decision making narrative: 34-year-old female fever mom recently with influenza suspect influenza will do a workup due to her extensive past medical history. Also obtaining x-rays of the lumbar spine per request of the mother. Repeat exam last repeat exam around 6:22 PM. No significant change. We did examine the patient's back there were no acute abnormalities. No abscesses. No rash. Prior surgical scar well-healed. I went over all test results with mom. Given her fever, UTI and overall medical condition mild leukocytosis will admit her for IV antibiotics and further evaluation. IV meropenem was ordered due to prior cultures and resistance.. Urine culture and blood culture. History & Record Review Discussion w/independent historian: Patient and Family Additional record(s) reviewed:: Prior inpatient record, Prior outpatient record, Prior ED visit and Prior labs Lab Data Attestation: I reviewed the patient's lab results. Lab results narrative: CBC shows white count 12. H&H 11.9 and 33. Platelets 241. Electrolytes show sodium 127. Gap 11. BUN is 6 creatinine 0.5. Glucose 241. Lactic acid 3.7. Liver enzymes negative. Chest x-ray chronic changes no acute. Lumbar spine no acute abnormality. COVID and flu negative. UA positive for nitrates. 5-10 white cells. 4+ bacteria. Culture sent. Started on Rocephin. Labs: Laboratory Results - last 24 hr 11/02/24 11/02/24 14:40 16:10 WBC 12.0 H RBC 3.71 L Hgb 11.9 L Hct 33.8 L MCV 91.1 MCH 32.1 H MCHC 35.2 RDW Std Deviation 39.5 RDW Coeff of Anne 11.9 Plt Count 241 MPV 10.1 Immature Gran % (Auto) 0.600 Neut % (Auto) 80.3 H Lymph % (Auto) 10.3 L [place] % (Auto) 7.1 Eos % (Auto) 1.4 Baso % (Auto) 0.3 Absolute Neuts (auto) 9.6 H Absolute Lymphs (auto) 1.24 Nucleated RBC % 0 Sodium 127 L Potassium 3.9 Chloride 90 L Carbon Dioxide 25.0 Anion Gap 11 BUN 6 L Creatinine 0.52 L Estim Creat Clear Calc 121.53 Est GFR (MDRD) Af Amer 173 Est GFR (MDRD) Non-Af 143 BUN/Creatinine Ratio 11.5 Glucose 241 H Lactic Acid 3.7 H* Calcium 9.3 Total Bilirubin 0.20 AST 11 L ALT 21 Alkaline Phosphatase 66 Total Protein 7.6 Albumin 3.8 Globulin 3.8 Albumin/Globulin Ratio 1.0 Urine Color Straw Urine Clarity Clear Urine pH 7.0 Ur Specific [place] 1.010 Urine Protein 15 H Urine Glucose (UA) 100 H Urine Ketones 5 H Urine Occult Blood 250 H Urine Nitrite Positive H Urine Bilirubin Negative Urine Urobilinogen Normal Ur Leukocyte Esterase 500 H Urine RBC 0-5 SEEN Urine WBC 5-10 SEEN Ur Squamous Epith Cells 0-5 SEEN Urine Bacteria 4+ Urine Mucus 0 SEEN Radiography Chest X-Ray - ED: 1 View, Read by ED Physician, Heart, Lungs, Mediastinum, Bony Structures, No Acute Disease and Chronic Changes Diagnostic Testing: Clinical Impression(s) from Imaging Studies Chest X-Ray 11/02/24 15:10 IMPRESSION: Stable pleural-parenchymal changes in the left lung base. Reading Location: [facility] Lumbar Spine X-Ray 11/02/24 15:10 IMPRESSION: Severe dextroscoliosis with immobilization by a long Mckeon angelo. Degenerative changes of the left hip. Other nonacute findings noted above. Reading Location: [facility] Chest x-ray, portable, single view shows no acute abnormality. Spinal angelo. No pneumonia. Discharge Plan Dx/Rx/DC Orders Clinical Impression: Fever, UTI (urinary tract infection), Leukocytosis, History of diabetes mellitus, History of cerebral palsy, Ventilator dependence, Nonverbal Disposition Disposition: Acute Care Hospital [facility]
[2024-11-02] MEDS: 0.9% Normal Saline (1000mL) 1,000 ML 1000 ML IV (14:52)
[2024-11-02 14:55] LABS: Absolute Lymphocyte Count 1.24 X10^3/uL (0.83-4.51); Absolute Neutrophil Count 9.6 X10^3/uL (2.0-7.7); Basophil# 0.03 X10^3/uL; Basophil% 0.3 % (0-1); Eosinophil# 0.17 X10^3/uL; Eosinophils% 1.4 % (0-5); Hematocrit 33.8 % (37-47); Hemoglobin 11.9 g/dL (12.0-15.0); Lymphocyte # 1.24 X10^3/ul (0.83-4.51); Lymphocyte % 10.3 % (19-41); Mean Corp Hgb Conc 35.2 g/dL (32-36); Mean Corpuscular Hgb 32.1 pg (27.0-32.0); Mean Corpuscular Volume 91.1 fL (81-99); Mean Platelet Vol. 10.1 fl (6.2-12.0); Monocyte# 0.85 X10^3/uL; Monocyte% 7.1 % (0-10); NRBC Flagged by Analyzer 0 % (0-5); Neutrophil # 9.63 X10^3/uL (2.7-7.7); Neutrophil % 80.3 % (47-70); Platelet Count 241 K/mm3 (150-450); RBC Distribution Width CV 11.9 % (11.6-14.6); RBC Distribution Width SD 39.5 fl (35.1-43.9); Red Blood Count 3.71 M/mm3 (4.2-5.4)
[2024-11-02] MEDS: Ketorolac 15 MG/ML Vial IV (15:01)
--- NOTE | 2024-11-02 15:10 | RAD_ITS ---
PROCEDURE: LUMBAR SPINE 2 OR 3 VIEWS REASON FOR EXAM: Back pain. TECHNIQUE: 2 view(s) of the lumbar spine COMPARISON: Chest dated 08/29/2022. FINDINGS: Severe dextroscoliosis of the thoracolumbar spine. A long fusion angelo is noted immobilizing the scoliotic curvature. Severe degenerative changes of the left hip and acetabulum. Nonspecific bowel-gas pattern. Phleboliths in the pelvis. Radiopaque artifact most likely therapeutic device projects over the left hemiabdomen. RAD/Lumbar Spine 2 or 3 Views IMPRESSION: Severe dextroscoliosis with immobilization by a long Mckeon angelo. Degenerative changes of the left hip. Other nonacute findings noted above. Reading Location: [facility]
--- NOTE | 2024-11-02 15:10 | RAD_ITS ---
PROCEDURE: CHEST 1 VIEW (PORTABLE) REASON FOR EXAM: History of fever. TECHNIQUE: Frontal view of the chest. COMPARISON: Comparison is made with prior study dated August 29, 2022. FINDINGS: EKG electrodes are seen. Marked degree of dextroscoliosis and evidence of prior Mckeon angelo fixation of the thoracic scoliosis. Stable pleural-parenchymal changes at the left lung base. RAD/Chest 1 View (Portable) IMPRESSION: Stable pleural-parenchymal changes in the left lung base. Reading Location: [facility]
[2024-11-02 15:18] LABS: AST(SGOT) 11 U/L (15-37); Alanine Aminotransfer ALT/SGPT 21 U/L (13-56); Albumin, Serum 3.8 g/dL (3.2-5.0); Alkaline Phosphatase 66 U/L (45-117); Anion Gap 11 (5-15); BUN 6 mg/dL (7-18); BUN/Creat Ratio 11.5 RATIO (10-20); Calcium,Total 9.3 mg/dL (8.5-10.1); Chloride 90 mmol/L (98-107); Creatinine, Serum 0.52 mg/dL (0.55-1.02); EST Glomerular Filtration Rate 143 mL/min (>60); Est Glom Filt Rate - Afr Amer 173 mL/min (>60); Estimated Creatinine Clearance 121.53 ml/min; Globulin 3.8 g/dL (2.2-4.2); Glucose 241 mg/dL (74-106); Potassium 3.9 mmol/L (3.5-5.1); Protein, Total 7.6 g/dL (6.4-8.2); Sodium Level 127 mmol/L (136-145)
[2024-11-02 15:33] LABS: Lactic Acid 3.7 mmol/L (0.4-1.9)
[2024-11-02] MEDS: Ondansetron 4 MG/2 ML Vial IV (15:35)
[2024-11-02] MEDS: morphine 8 MG/ML Syringe 4 MG IV (15:35)
[2024-11-02 16:24] LABS: Mucous, Urine 0 SEEN /hpf (<or=2+)
[2024-11-02 16:25] LABS: Color, Urine Straw (Yellow); Glucose, Dipstick 100 mg/dl (Normal); Ketone-Dipstick 5 mg/dl (Negative); Leukocyte Esterase-Dipstick 500 /ul (Negative); Nitrite-Dipstick Positive (Negative); Occult Blood-Urine 250 /ul (Negative); Protein-Dipstick 15 mg/dl (Negative); Urine Bilirubin Dipstick Negative (Negative); Urine Clarity Clear (Clear); Urine Urobilinogen Normal (Normal)
[2024-11-02 16:38] LABS: Bacteria 4+ /hpf (None Seen)
[2024-11-02 16:39] LABS: White Blood Cells 5-10 SEEN /hpf (0-5)
[2024-11-02 16:40] LABS: Red Blood Cells-Urine 0-5 SEEN /hpf (0-5); Squamous Epithelial Cells - UA 0-5 SEEN /hpf (5-10)
[2024-11-02 18:47] LABS: Reflex Lactate? Y
--- NOTE | 2024-11-02 18:47 | PCM.HP.STD ---
HPI - General General Date of Admission: 11/02/24 Date of Service: 11/02/24 Chief Complaint: back pain HPI Narrative MANDY RIVERA, is a 34-year-old female history of cerebral palsy, PEG tube, straight cath twice daily, vent dependent, nonverbal, diabetes, back rods, seizure disorder presented [facility] ED 11/02/2024 with concerns for lumps in her lower back. Mom says she thinks it is from the rods and possibly the screws came loose but she also had a temp of 99 at home with some increased secretions and diarrhea with an influenza A contact. In the ED temperature 100.3 with heart rate of 91 and blood pressure 135/90, patient 100% on mechanical ventilation. She was noted to have a sodium of 127 slightly down from usual and slight leukocytosis with a white blood cell count of 12, hemoglobin 11.9. Lactic acid 3.7. Chest x-ray and x-ray of lumbar spine with no acute abnormality patient found to have a urinary tract infection, has history of ESBL with very specific sensitivity pattern so hospitalist contacted for admission for IV antibiotics while waiting culture. Evaluated patient with mom at bedside, mom reports when she rolled patient she noticed that there seem to be 3 bumps on her back at the time and they seem to be improving, no rash or redness or erythema based on the picture. She does endorse the temp of 99 and that over the past day or so she has had some increased secretions and diarrhea FOR[facility]LY [facility], [facility] Medical History ESBL (extended spectrum beta-lactamase) producing bacteria infection On tube feeding diet History of Clostridium difficile infection MRSA infection Redness of skin Bladder disease History of renal disease Seizures Dietary restriction On home oxygen therapy Non-smoker Renal calculi Skin tag of vaginal mucosa Renal calculus or stone PICC (peripherally inserted central catheter) in place Bedbound Pancreatitis Kidney stones Ventilator dependent Urinary tract infection due to extended-spectrum beta lactamase (ESBL) producing Escherichia coli Recurrent UTI Staghorn renal calculus Diabetes Chronic respiratory failure Allergic rhinitis due to other allergen Paraplegia Visual disturbance Amenorrhea Neuromuscular scoliosis Hyperglycemia Vitamin D deficiency Respiratory acidosis Thrush Lactic acid acidosis Bronchitis Irregular menstrual cycle 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 Bronchiectasis without acute exacerbation Severe sepsis Seizure Cerebral palsy Pneumonia Home Medications ?Medication ?Instructions ?Recorded ?Last Taken ?Type baclofen 20 mg tablet 30 mg G-tube TID muscle spasms 09/02/13 11/02/24 History oxcarbazepine 300 mg/5 mL (60 8 ml G-tube BID seizure 08/28/17 11/02/24 History mg/mL) oral suspension (Trileptal) diazepam 5 mg/5 mL (1 mg/mL) oral 5 mg feeding tube DAILY@1400 spasms 05/20/21 11/02/24 History solution diazepam 5 mg/5 mL (1 mg/mL) oral 7 mg feeding tube BID spasms 05/20/21 11/02/24 History solution ascorbic acid (vitamin C) 500 mg/5 500 mg feeding tube BID SUPPLEMENT 12/12/21 11/02/24 History mL oral syrup cholecalciferol (vitamin D3) 50 50 mcg feeding tube DAILY 12/12/21 11/02/24 History mcg (2,000 unit) capsule SUPPLEMENT ibuprofen 100 mg/5 mL oral 400 mg PO Q6H PRN Pain 12/12/21 02/24/22 History suspension miconazole nitrate 2 % vaginal 1 appful vaginal DAILY PRN YEAST 12/12/21 1 Week Ago History cream (Monistat 7) ~02/17/22 sodium chloride 0.9 % for 3 - 6 ml inhalation Q2H PRN 12/12/21 02/23/22 History nebulization Congestion levalbuterol HCl 1.25 mg/3 mL 1.25 mg (3 mL) inhalation BID 01/16/22 11/02/24 Rx solution for nebulization BREATHING #90 mL naphazoline 0.012 % eye drops 2 drp ophthalmic (eye) DAILY PRN 02/24/22 02/23/22 History allergies acetaminophen 160 mg/5 mL oral 640 mg PO Q4H PRN pain/fever 03/31/22 Unknown History liquid acidophilus 25 million 1 tab G-tube DAILY supplement 03/31/22 11/02/24 History cell-pectin, citrus 100 mg tablet carbamide peroxide 6.5 % ear drops 5 drp EACH EAR DAILY PRN Ear Wax 03/31/22 Unknown History (Debrox) magnesium hydroxide 400 mg/5 mL 15 - 60 ml PO DAILY PRN 03/31/22 Unknown History oral suspension (Milk of Magnesia) Constipation nystatin 100,000 unit/gram topical 1 applic topical BID PRN redness 03/31/22 Unknown History powder ferrous sulfate 15 mg iron (75 5 ml feeding tube MOTH supplement 08/24/22 11/02/24 History mg)/mL oral syringe (ORAL USE) docusate sodium 60 mg/15 mL oral 60 mg feeding tube DAILY Check 08/29/22 Unknown History syrup with primary doctor nutritional supplements 1 ea PO BID Check with primary 08/29/22 Unknown History doctor meropenem 1 gram intravenous 1 g IV Q8 7 days #21 ea 09/03/22 11/02/24 Rx solution blood sugar diagnostic (True #400 ea 02/23/23 Unknown Rx Metrix Pro Test Strip) cetirizine 5 mg/5 mL oral solution 10 mg (10 mL) PO DAILY allergy 03/18/23 11/02/24 Rx symptoms #300 mL lancets 30 gauge (Embrace Lancets) #200 ea 11/11/23 Unknown Rx fluticasone propionate 44 2 puff inhalation BID Check with 05/23/24 11/02/24 Rx mcg/actuation HFA aerosol inhaler primary doctor #10.6 grams (Flovent HFA) levalbuterol HCl 1.25 mg/3 mL 1.25 mg (3 mL) inhalation Q4H PRN 05/23/24 Unknown Rx solution for nebulization sob #150 mL pen needle, diabetic 32 gauge x #360 ea 07/24/24 Unknown Rx (BD Ultra-Fine Priyanka Pen Needle) Novolog FlexPen U-100 Insulin 100 18 unit (0.18 mL) subcut TID #33 mL 10/24/24 Unknown Rx unit/mL (3 mL) subcutaneous (insulin aspart U-100) blood sugar diagnostic (True #150 ea 10/24/24 Unknown Rx Metrix Glucose Test Strip) insulin glargine 100 unit/mL (3 20 unit (0.2 mL) subcut QPM #15 mL 10/24/24 11/01/24 Rx mL) subcutaneous pen (Basaglar KwikPen U-100 Insulin) artificial tears(hypromellose) 0.3 1 drp EACH EYE BID PRN dry eyes 11/02/24 Unknown History % eye gel (GenTeal Tears Severe) bacitracin 500 unit/gram topical 1 applic topical 4X/DAY PRN 11/02/24 Unknown History ointment ABRASIONS guaifenesin 100 mg/5 mL oral liquid 200 mg G-tube Q4H PRN thick 11/02/24 Unknown History secretions honey 80 % topical gel ([place] 1 applic topical BID PRN wound 11/02/24 Unknown History Honey) healing hydrocortisone 1 % topical cream 1 applic topical 4X/DAY PRN itching 11/02/24 Unknown History (Ala-Brown) methenamine hippurate 1 gram tablet 1 g PO BID 11/02/24 11/02/24 History ijfsvavm-oily-hebfmun gluconate 9 5 ml PO DAILY 11/02/24 11/02/24 History mg iron/15 mL (15 mL) oral liquid (Centrum) phenazopyridine 200 mg tablet 200 mg feeding tube TID PRN pain 11/02/24 Unknown History potassium chloride 20 mEq/15 mL 10 meq PO DAILY 11/02/24 11/02/24 History oral liquid sodium chloride 0.9 % topical spray 1 applic topical PRN 11/02/24 Unknown History trolamine salicylate 10 % topical 1 applic topical 4X/DAY PRN muscle 11/02/24 Unknown History cream (Alcis) pain Allergy/AdvReac Type Severity Reaction Status Date / Time linezolid Allergy Severe Other - Verified 11/02/24 14:07 seizure & coma vancomycin Allergy Severe Other - Verified 11/02/24 14:07 kidney failure tobramycin Allergy Intermediate Other - Verified 11/02/24 14:07 turned beet red nafcillin Allergy Mild Rash Verified 11/02/24 14:07 benzoin Allergy Unknown Rash Verified 11/02/24 14:07 milk Allergy Unknown Other Verified 11/02/24 14:07 soy Allergy Unknown Other Verified 11/02/24 14:07 polyethylene glycol 3350 AdvReac Unknown Hives Verified 11/02/24 14:07 (From Miralax) Family History Grandmother Cancer maternal Other Adopted Surgical History Presence of intrathecal baclofen pump Gastrostomy tube in place Status post Jorje fundoplication H/O spinal fusion rods to back surgery on gland under tongue eyes straightened derotatox ostomies tendonatomies Tracheostomy status Social History household members: other details: Mother and is vent dependent housing: house Smoking Status: Never smoker second hand exposure: No alcohol intake: never substance use type: does not use ROS ROS Narrative Unable to obtain ROS secondary to patient mental status Vital Signs Vital Signs Vital Signs: 11/02/24 14:01 11/02/24 14:06 11/02/24 16:00 Temperature 100 F H 100.3 F H 100.3 F H Temperature Source Temporal Temporal Temporal Pulse Rate 93 91 89 Respiratory Rate 18 18 16 Blood Pressure 135/90 H 135/90 H 142/87 H Blood Pressure Mean 105 105 105 Pulse Ox 93 100 100 Oxygen Delivery Method Mechanical Ventilator Mechanical Ventilator Mechanical Ventilator 11/02/24 17:00 11/02/24 18:00 11/02/24 18:00 Temperature 97.9 F 98.2 F Temperature Source Temporal Temporal Pulse Rate 84 71 Respiratory Rate 16 19 H Blood Pressure 142/87 H 122/72 H 122/72 H Blood Pressure Mean 105 88 88 Pulse Ox 100 100 Oxygen Delivery Method Mechanical Ventilator Mechanical Ventilator Weight Weight: 58 kg Body Mass Index (BMI) 30.8 Physical Exam Narrative General: Patient resting comfortably HEENT: Chronically with cerebral palsy Eyes: Opens eyes spontaneously Neck: Trach in place Respiratory: Normal respiratory effort, no wheezes or rhonchi, is set up to her chronic ventilation Cardiovascular: Low-grade sinus tachycardia GI: Soft Extremities: No edema Musculoskeletal: Has some chronic changes Neuro: Patient unable to participate in neuroexam Skin: No rashes appreciated Psych: Unable to cooperate secondary to mental status Results Lab / Micro Data 11/02/24 14:40 11/02/24 14:40 Labs: Laboratory Results - last 24 hr 11/02/24 14:40: WBC 12.0 H, RBC 3.71 L, Hgb 11.9 L, Hct 33.8 L, MCV 91.1, MCH 32.1 H, MCHC 35.2, RDW Std Deviation 39.5, RDW Coeff of Anne 11.9, Plt Count 241, MPV 10.1, Immature Gran % (Auto) 0.600, Neut % (Auto) 80.3 H, Lymph % (Auto) 10.3 L, [place] % (Auto) 7.1, Eos % (Auto) 1.4, Baso % (Auto) 0.3, Absolute Neuts (auto) 9.6 H, Absolute Lymphs (auto) 1.24, Nucleated RBC % 0, Sodium 127 L, Potassium 3.9, Chloride 90 L, Carbon Dioxide 25.0, Anion Gap 11, BUN 6 L, Creatinine 0.52 L, Estim Creat Clear Calc 121.53, Est GFR (MDRD) Af Amer 173, Est GFR (MDRD) Non-Af 143, BUN/Creatinine Ratio 11.5, Glucose 241 H, Lactic Acid 3.7 H*, Calcium 9.3, Total Bilirubin 0.20, AST 11 L, ALT 21, Alkaline Phosphatase 66, Total Protein 7.6, Albumin 3.8, Globulin 3.8, Albumin/Globulin Ratio 1.0 11/02/24 16:10: Urine Color Straw, Urine Clarity Clear, Urine pH 7.0, Ur Specific [place] 1.010, Urine Protein 15 H, Urine Glucose (UA) 100 H, Urine Ketones 5 H, Urine Occult Blood 250 H, Urine Nitrite Positive H, Urine Bilirubin Negative, Urine Urobilinogen Normal, Ur Leukocyte Esterase 500 H, Urine RBC 0-5 SEEN, Urine WBC 5-10 SEEN, Ur Squamous Epith Cells 0-5 SEEN, Urine Bacteria 4+, Urine Mucus 0 SEEN Micro: Microbiology 11/02/24 14:42 Mucosa - Nose SARS-CoV-2, Influenza & RSV (PCR) - Final Imaging Radiology Impression Chest X-Ray 11/02/24 15:10 IMPRESSION: Stable pleural-parenchymal changes in the left lung base. Reading Location: [id number] Lumbar Spine X-Ray 11/02/24 15:10 IMPRESSION: Severe dextroscoliosis with immobilization by a long Mckeon angelo. Degenerative changes of the left hip. Other nonacute findings noted above. Reading Location: [facility] Assessment & Plan Assessment/Plan (1) UTI (urinary tract infection): PLAN: Plan # Urinary tract infection, suspect ESBL given history -UA suspicious for UTI -Patient with history of ESBL, will admit placed on Merrem given previous sensitivities -Will consult infectious disease -Urine culture ordered and blood cultures ordered in the ED # Hyponatremia -Slightly down from usual -Given patient's acute illness with diarrhea may be slightly volume depleted -Will give gentle fluids, if not improving can consider further workup -Mother reports she is at her baseline mental status # Bumps on back -Lumbar x-ray no acute abnormality but mother does report her scoliosis has gotten worse over time, she does not follow with anyone for this any further since she had the angelo placed many years ago and had not needed to follow-up -ED physician had not appreciated any significant abnormalities on rolling the patient and mother did feel that the protrusions were improving -Can reassess in the a.m., if any worsening or further concern for acute spinal pathology can consider orthospine consult, if not may be able to follow-up on outpatient basis if stable # History of cerebral palsy/chronic PEG tube/straight cath twice daily/nonverbal/ventilator dependent -Continue supportive care and present home management -Will consult laboratory tech as patient has PEG tube -Order straight cath twice daily # History of kidney stones -Patient follows on an outpatient basis with Dr. Anaya #Seizure disorder -Presently maintained on Trileptal -Continue home regimen #Type 2 diabetes mellitus -Glucose checks and sliding scale insulin -Continue long-acting insulin #DVT ppx: Lovenox subcu Charges/Coding Visit Charges Inpatient E&M: 28749 Init Hosp L2
[2024-11-02] MEDS: Meropenem 2 GM in 0.9% Normal Saline (100mL Bag) 100 ML IV (19:02)
[2024-11-02 19:48] LABS: Lactic Acid 1.8 mmol/L (0.4-1.9)
[2024-11-02] MEDS: Albuterol 2.5 MG/3 ML VIAL.NEB. INHALATION (21:15)
[2024-11-02] MEDS: Budesonide Respules 0.5 MG/2 ML AMPUL.NEB. INHALATION (21:15)
[2024-11-02] MEDS: 0.9% Normal Saline (1000mL) 1,000 ML 50 ML IV (23:49)
[2024-11-02] MEDS: 0.9% Saline Lock 10 ML Syringe IV (23:49)
[2024-11-03 04:00] VITALS: BP 105/66; PULSE 67; RESP 16; TEMP 36.3; O2SAT 100
[2024-11-03] MEDS: Meropenem 1 GM in 0.9% Normal Saline (100mL MB+) 100 ML IV ×3 (05:27→20:10)
[2024-11-03 05:53] LABS: Bedside Glucose 108 mg/dL (74-106)
[2024-11-03 06:35] LABS: Absolute Lymphocyte Count 1.02 X10^3/uL (0.83-4.51); Basophil# 0.02 X10^3/uL; Basophil% 0.3 % (0-1); Eosinophil# 0.15 X10^3/uL; Eosinophils% 2.6 % (0-5); Hematocrit 30.6 % (37-47); Hemoglobin 10.3 g/dL (12.0-15.0); Lymphocyte # 1.02 X10^3/ul (0.83-4.51); Lymphocyte % 17.6 % (19-41); Mean Corp Hgb Conc 33.7 g/dL (32-36); Mean Corpuscular Hgb 31.4 pg (27.0-32.0); Mean Corpuscular Volume 93.3 fL (81-99); Monocyte# 0.57 X10^3/uL; Monocyte% 9.9 % (0-10); NRBC Flagged by Analyzer 0 % (0-5); Neutrophil # 3.98 X10^3/uL (2.7-7.7); Neutrophil % 68.9 % (47-70); Platelet Count 198 K/mm3 (150-450); RBC Distribution Width SD 41.4 fl (35.1-43.9); Red Blood Count 3.28 M/mm3 (4.2-5.4); White Blood Count 5.8 K/mm3 (4.4-11.0)
[2024-11-03 07:11] LABS: Anion Gap 7 (5-15); BUN 6 mg/dL (7-18); BUN/Creat Ratio 17.6 RATIO (10-20); Calcium,Total 9.4 mg/dL (8.5-10.1); Chloride 98 mmol/L (98-107); Creatinine, Serum 0.34 mg/dL (0.55-1.02); EST Glomerular Filtration Rate 233 mL/min (>60); Est Glom Filt Rate - Afr Amer 282 mL/min (>60); Estimated Creatinine Clearance 167.47 ml/min; Glucose 118 mg/dL (74-106); Potassium 3.8 mmol/L (3.5-5.1); Sodium Level 133 mmol/L (136-145)
[2024-11-03 07:55] VITALS: PULSE 64; PULSE 66; RESP 13; RESP 17; O2SAT 100
[2024-11-03] MEDS: Albuterol 2.5 MG/3 ML VIAL.NEB. INHALATION ×2 (07:55→19:15)
[2024-11-03] MEDS: Budesonide Respules 0.5 MG/2 ML AMPUL.NEB. INHALATION ×3 (07:55→19:15)
[2024-11-03 08:32] LABS: Bedside Glucose 105 mg/dL (74-106)
--- NOTE | 2024-11-03 10:14 | PCM.CONS.GEN ---
Assessment & Plan Assessment/Plan (1) Nonverbal: (2) History of cerebral palsy: (3) UTI (urinary tract infection): PLAN: Passed stones in ED. UA with mild pyuria. Ucx pending. Cont meropenem, may only need short course. Will follow, thank you (4) Chronic respiratory failure: QUALIFIERS: Respiratory failure complication: hypoxia Qualified Code(s): J96.11 - Chronic respiratory failure with hypoxia HPI Consult Data Date of Consult: 11/03/24 HPI Narrative Reason for Consultation: sepsis HPI Narrative: MANDY RIVERA, is a 34 F with cerebral palsy, recurrent esbl uti, on chronic vent via trach, came to ED 11/02 with 1-2 days back pain, not feeling well, some blood in urine. Came to ED, passed two kidney stones, had low grade fever, admitted on snow. Feeling better this AM. ROS unobtainable due to mental status FOR[facility] Medical History ESBL (extended spectrum beta-lactamase) producing bacteria infection On tube feeding diet History of Clostridium difficile infection MRSA infection Redness of skin Bladder disease History of renal disease Seizures Dietary restriction On home oxygen therapy Non-smoker Renal calculi Skin tag of vaginal mucosa Renal calculus or stone PICC (peripherally inserted central catheter) in place Bedbound Pancreatitis Kidney stones Ventilator dependent Urinary tract infection due to extended-spectrum beta lactamase (ESBL) producing Escherichia coli Recurrent UTI Staghorn renal calculus Diabetes Chronic respiratory failure Allergic rhinitis due to other allergen Paraplegia Visual disturbance Amenorrhea Neuromuscular scoliosis Hyperglycemia Vitamin D deficiency Respiratory acidosis Thrush Lactic acid acidosis Bronchitis Irregular menstrual cycle 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 Bronchiectasis without acute exacerbation Severe sepsis Seizure Cerebral palsy Pneumonia Home Medications ?Medication ?Instructions ?Recorded ?Last Taken ?Type baclofen 20 mg tablet 30 mg G-tube TID muscle spasms 09/02/13 11/02/24 20:30 History oxcarbazepine 300 mg/5 mL (60 8 ml G-tube BID seizure 08/28/17 11/02/24 20:30 History mg/mL) oral suspension (Trileptal) diazepam 5 mg/5 mL (1 mg/mL) oral 5 mg feeding tube DAILY@1400 spasms 05/20/21 11/02/24 14:00 History solution diazepam 5 mg/5 mL (1 mg/mL) oral 7 mg feeding tube BID spasms 05/20/21 11/02/24 20:30 History solution ascorbic acid (vitamin C) 500 mg/5 500 mg feeding tube BID SUPPLEMENT 12/12/21 11/02/24 History mL oral syrup cholecalciferol (vitamin D3) 50 50 mcg feeding tube DAILY 12/12/21 11/02/24 History mcg (2,000 unit) capsule SUPPLEMENT ibuprofen 100 mg/5 mL oral 400 mg PO Q6H PRN Pain 12/12/21 02/24/22 History suspension miconazole nitrate 2 % vaginal 1 appful vaginal DAILY PRN YEAST 12/12/21 1 Week Ago History cream (Monistat 7) ~02/17/22 sodium chloride 0.9 % for 3 - 6 ml inhalation Q2H PRN 12/12/21 02/23/22 History nebulization Congestion levalbuterol HCl 1.25 mg/3 mL 1.25 mg (3 mL) inhalation BID 01/16/22 11/02/24 Rx solution for nebulization BREATHING #90 mL naphazoline 0.012 % eye drops 2 drp ophthalmic (eye) DAILY PRN 02/24/22 02/23/22 History allergies acetaminophen 160 mg/5 mL oral 640 mg PO Q4H PRN pain/fever 03/31/22 Unknown History liquid acidophilus 25 million 1 tab G-tube DAILY supplement 03/31/22 11/02/24 History cell-pectin, citrus 100 mg tablet carbamide peroxide 6.5 % ear drops 5 drp EACH EAR DAILY PRN Ear Wax 03/31/22 Unknown History (Debrox) magnesium hydroxide 400 mg/5 mL 15 - 60 ml PO DAILY PRN 03/31/22 Unknown History oral suspension (Milk of Magnesia) Constipation nystatin 100,000 unit/gram topical 1 applic topical BID PRN redness 03/31/22 Unknown History powder ferrous sulfate 15 mg iron (75 5 ml feeding tube MOTH supplement 08/24/22 11/02/24 History mg)/mL oral syringe (ORAL USE) docusate sodium 60 mg/15 mL oral 60 mg feeding tube DAILY Check 08/29/22 Unknown History syrup with primary doctor nutritional supplements 1 ea PO BID Check with primary 08/29/22 Unknown History doctor meropenem 1 gram intravenous 1 g IV Q8 7 days #21 ea 09/03/22 11/02/24 Rx solution blood sugar diagnostic (True #400 ea 02/23/23 Unknown Rx Metrix Pro Test Strip) cetirizine 5 mg/5 mL oral solution 10 mg (10 mL) PO DAILY allergy 03/18/23 11/02/24 Rx symptoms #300 mL lancets 30 gauge (Embrace Lancets) #200 ea 11/11/23 Unknown Rx fluticasone propionate 44 2 puff inhalation BID Check with 05/23/24 11/02/24 Rx mcg/actuation HFA aerosol inhaler primary doctor #10.6 grams (Flovent HFA) levalbuterol HCl 1.25 mg/3 mL 1.25 mg (3 mL) inhalation Q4H PRN 05/23/24 Unknown Rx solution for nebulization sob #150 mL pen needle, diabetic 32 gauge x #360 ea 07/24/24 Unknown Rx 5/32 (BD Ultra-Fine Priyanka Pen Needle) Novolog FlexPen U-100 Insulin 100 18 unit (0.18 mL) subcut TID #33 mL 10/24/24 Unknown Rx unit/mL (3 mL) subcutaneous (insulin aspart U-100) blood sugar diagnostic (True #150 ea 10/24/24 Unknown Rx Metrix Glucose Test Strip) insulin glargine 100 unit/mL (3 20 unit (0.2 mL) subcut QPM #15 mL 10/24/24 11/01/24 Rx mL) subcutaneous pen (Basaglar KwikPen U-100 Insulin) artificial tears(hypromellose) 0.3 1 drp EACH EYE BID PRN dry eyes 11/02/24 Unknown History % eye gel (GenTeal Tears Severe) bacitracin 500 unit/gram topical 1 applic topical 4X/DAY PRN 11/02/24 Unknown History ointment ABRASIONS guaifenesin 100 mg/5 mL oral liquid 200 mg G-tube Q4H PRN thick 11/02/24 Unknown History secretions honey 80 % topical gel (Manuka 1 applic topical BID PRN wound 11/02/24 Unknown History Honey) healing hydrocortisone 1 % topical cream 1 applic topical 4X/DAY PRN itching 11/02/24 Unknown History (Ala-Brown) methenamine hippurate 1 gram tablet 1 g PO BID 11/02/24 11/02/24 History rvswtyey-jvfp-mbpomcn gluconate 9 5 ml PO DAILY 11/02/24 11/02/24 History mg iron/15 mL (15 mL) oral liquid (Centrum) phenazopyridine 200 mg tablet 200 mg feeding tube TID PRN pain 11/02/24 Unknown History potassium chloride 20 mEq/15 mL 10 meq PO DAILY 11/02/24 11/02/24 History oral liquid sodium chloride 0.9 % topical spray 1 applic topical PRN 11/02/24 Unknown History trolamine salicylate 10 % topical 1 applic topical 4X/DAY PRN muscle 11/02/24 Unknown History cream (Alcis) pain Allergy/AdvReac Type Severity Reaction Status Date / Time linezolid Allergy Severe Other - Verified 11/02/24 14:07 seizure & coma vancomycin Allergy Severe Other - Verified 11/02/24 14:07 kidney failure tobramycin Allergy Intermediate Other - Verified 11/02/24 14:07 turned beet red nafcillin Allergy Mild Rash Verified 11/02/24 14:07 benzoin Allergy Unknown Rash Verified 11/02/24 14:07 milk Allergy Unknown Other Verified 11/02/24 14:07 soy Allergy Unknown Other Verified 11/02/24 14:07 polyethylene glycol 3350 AdvReac Unknown Hives Verified 11/02/24 14:07 (From Miralax) Family History Grandmother Cancer maternal Other Adopted Surgical History Presence of intrathecal baclofen pump Gastrostomy tube in place Status post Jorje fundoplication H/O spinal fusion rods to back surgery on gland under tongue eyes straightened derotatox ostomies tendonatomies Tracheostomy status Social History household members: other details: Mother and is vent dependent housing: house Smoking Status: Never smoker second hand exposure: No alcohol intake: never substance use type: does not use Physical Exam Const no apparent distress General Appearance: cooperative HEENT head/scalp atraumatic Eyes PERRL and EOMs intact bilaterally Neck supple Resp normal air movement and clear to auscultation bilaterally Cardio regular rate and regular rhythm GI soft to palpation, non-tender and non-distended Extremity General Extremity: Negative for edema Skin no rashes or lesions noted Neuro CN's II-XII intact bilaterally Lab / Micro Data Attestation: I reviewed the patient's lab results. 11/03/24 06:11 11/03/24 06:11 Labs: Laboratory Results - last 24 hr 11/02/24 14:40: WBC 12.0 H, RBC 3.71 L, Hgb 11.9 L, Hct 33.8 L, MCV 91.1, MCH 32.1 H, MCHC 35.2, RDW Std Deviation 39.5, RDW Coeff of Anne 11.9, Plt Count 241, MPV 10.1, Immature Gran % (Auto) 0.600, Neut % (Auto) 80.3 H, Lymph % (Auto) 10.3 L, [place] % (Auto) 7.1, Eos % (Auto) 1.4, Baso % (Auto) 0.3, Absolute Neuts (auto) 9.6 H, Absolute Lymphs (auto) 1.24, Nucleated RBC % 0, Sodium 127 L, Potassium 3.9, Chloride 90 L, Carbon Dioxide 25.0, Anion Gap 11, BUN 6 L, Creatinine 0.52 L, Estim Creat Clear Calc 121.53, Est GFR (MDRD) Af Amer 173, Est GFR (MDRD) Non-Af 143, BUN/Creatinine Ratio 11.5, Glucose 241 H, Lactic Acid 3.7 H*, Calcium 9.3, Total Bilirubin 0.20, AST 11 L, ALT 21, Alkaline Phosphatase 66, Total Protein 7.6, Albumin 3.8, Globulin 3.8, Albumin/Globulin Ratio 1.0 11/02/24 16:10: Urine Color Straw, Urine Clarity Clear, Urine pH 7.0, Ur Specific [place] 1.010, Urine Protein 15 H, Urine Glucose (UA) 100 H, Urine Ketones 5 H, Urine Occult Blood 250 H, Urine Nitrite Positive H, Urine Bilirubin Negative, Urine Urobilinogen Normal, Ur Leukocyte Esterase 500 H, Urine RBC 0-5 SEEN, Urine WBC 5-10 SEEN, Ur Squamous Epith Cells 0-5 SEEN, Urine Bacteria 4+, Urine Mucus 0 SEEN 11/02/24 19:03: Lactic Acid 1.8 11/03/24 04:20: POC Glucose 108 H 11/03/24 06:11: WBC 5.8, RBC 3.28 L, Hgb 10.3 L, Hct 30.6 L, MCV 93.3, MCH 31.4, MCHC 33.7, RDW Std Deviation 41.4, RDW Coeff of Anne 12.0, Plt Count 198, MPV 10.0, Immature Gran % (Auto) 0.700, Neut % (Auto) 68.9, Lymph % (Auto) 17.6 L, [place] % (Auto) 9.9, Eos % (Auto) 2.6, Baso % (Auto) 0.3, Absolute Neuts (auto) 4.0, Absolute Lymphs (auto) 1.02, Nucleated RBC % 0, Sodium 133 L, Potassium 3.8, Chloride 98, Carbon Dioxide 28.0, Anion Gap 7, BUN 6 L, Creatinine 0.34 L, Estim Creat Clear Calc 167.47, Est GFR (MDRD) Af Amer 282, Est GFR (MDRD) Non-Af 233, BUN/Creatinine Ratio 17.6, Glucose 118 H, Calcium 9.4 11/03/24 08:13: POC Glucose 105 Micro: Microbiology 11/02/24 16:10 Urine, Catheterized Urine Culture - Preliminary Presumptive E. coli 11/02/24 21:25 Mucosa - Nasopharyngeal Respiratory Panel (PCR) - Final 11/02/24 14:42 Mucosa - Nose SARS-CoV-2, Influenza & RSV (PCR) - Final Imaging Radiology Impression Chest X-Ray 11/02/24 15:10 IMPRESSION: Stable pleural-parenchymal changes in the left lung base. Reading Location: [id number] Lumbar Spine X-Ray 11/02/24 15:10 IMPRESSION: Severe dextroscoliosis with immobilization by a long Mckeon angelo. Degenerative changes of the left hip. Other nonacute findings noted above. Reading Location: [facility]
[2024-11-03 10:24] VITALS: BP 144/89; PULSE 76; RESP 18; TEMP 36.7; O2SAT 100
[2024-11-03] MEDS: Insulin Lispro 100 UNIT/ML INSULN.PEN 18 UNIT SC ×2 (10:35→16:45)
[2024-11-03] MEDS: Methenamine Hippurate 1 GM Tablet PO ×2 (10:36→19:47)
[2024-11-03] MEDS: Loratadine 10 MG Tablet GT (10:36)
[2024-11-03] MEDS: Baclofen 10 MG Tablet 30 MG GT ×3 (10:36→19:48)
[2024-11-03] MEDS: OXCARBAZEPINE 300 MG/5 ML 480 MG PO ×2 (10:39→20:02)
[2024-11-03] MEDS: diazePAM 5 MG Tablet 7.5 MG GT ×2 (10:44→20:03)
[2024-11-03] MEDS: Enoxaparin 40 MG/0.4 ML Syringe SC (10:52)
--- NOTE | 2024-11-03 11:12 | CASEMGMT ---
HIREN WILSON Assessment: Face to Face with pt and pt mom for initial transition planning/care coordination assessment. HIREN WILSON introduced self and role at [facility], pt is non-verbal, pt mom voices understanding and consents to assessment. Care providers, pharmacy, and demographics verified/updated. Strata: 2 Admitting Dx: Suspect ESBL UTI PCP: Lara Specialists: , Freight Claim Investigator; Sg, CHRIS; Héctor Urologist Preferred Pharmacy: [facility] Insurance: [facility] Prescription Benefit: yes LNOK: Rina, Mom; Mikey, Dad Living Arrangements: Pt lives with parents in a 1 story with a ramp to enter. ADLs: Pt requires full assistance with ADLs and IADLs. Pt receives tube feedings and bed baths at home. Transportation: Pt requires ambulance for transportation. DME: Tube feed pump, joshua lift, air matress, glucometer and supplies, mechanical vent, peg tube, concentrator and portable tanks. O2 provider is [employer]. [facility]. HHC/SNF: Currently gets HHC services through [facility] M/ from 8-6 and // from 9-3 Pt mom states no concerns with going home at time of dc. Pt mom states she left glucometer in ER room, RN KATIE called the ER vest front presser and notified they are looking for glucometer and supplies in the ER. CM to follow. Advised pt to ask CM if any further question/concerns/needs arise, voices understanding. Pt Goal: Home Plan: Home, follow ID for possible IV antibiotics at DC. Will need transportation set up. Elsie MARADIAGA CM
[2024-11-03 11:20] VITALS: RESP 15
[2024-11-03 12:02] LABS: Bedside Glucose 89 mg/dL (74-106)
--- NOTE | 2024-11-03 13:14 | PCM.PN.HOSP ---
Reason for Visit Reason for Visit: Diagnoses Chronic respiratory failure with hypoxia (11/02/24) Urinary tract infection, site not specified (11/02/24) Aphasia (11/02/24) Personal history of other diseases of the nervous system and sense organs (11/02/24) Subjective Subjective Saw patient at bedside this morning, mother present. Patient was laying back in bed comfortably and watching a show on the iPad. She opens eyes spontaneously but otherwise did not respond to commands, but this is her baseline. Mother notes that patient did not have any further fevers overnight and she was pleased with this. No other new concerns morning. Objective Data Objective Data Vital Signs: Vital Signs Temp Pulse Resp BP Pulse Ox O2 Del Method O2 Flow Rate 98.0 F 76 15 144/89 H 100 Trach Collar 3 11/03/24 10:24 11/03/24 10:24 11/03/24 11:20 11/03/24 10:24 11/03/24 10:24 11/03/24 11:00 11/03/24 07:55 Oxygen Flow Rate (L/min) 3 Oxygen Delivery Method Trach Collar Weight: 47.9 kg Body Mass Index (BMI) 25.0 Intake & Output: Intake and Output for Last 24 Hours 11/01/24 11/02/24 11/03/24 23:59 23:59 23:59 Intake Total 1140 / 1140 120 / 120 Balance 1140 / 1140 120 / 120 Lab / Micro Data 11/03/24 06:11 11/03/24 06:11 Labs: Laboratory Results - last 24 hr 11/02/24 14:40: WBC 12.0 H, RBC 3.71 L, Hgb 11.9 L, Hct 33.8 L, MCV 91.1, MCH 32.1 H, MCHC 35.2, RDW Std Deviation 39.5, RDW Coeff of Anne 11.9, Plt Count 241, MPV 10.1, Immature Gran % (Auto) 0.600, Neut % (Auto) 80.3 H, Lymph % (Auto) 10.3 L, [place] % (Auto) 7.1, Eos % (Auto) 1.4, Baso % (Auto) 0.3, Absolute Neuts (auto) 9.6 H, Absolute Lymphs (auto) 1.24, Nucleated RBC % 0, Sodium 127 L, Potassium 3.9, Chloride 90 L, Carbon Dioxide 25.0, Anion Gap 11, BUN 6 L, Creatinine 0.52 L, Estim Creat Clear Calc 121.53, Est GFR (MDRD) Af Amer 173, Est GFR (MDRD) Non-Af 143, BUN/Creatinine Ratio 11.5, Glucose 241 H, Lactic Acid 3.7 H*, Calcium 9.3, Total Bilirubin 0.20, AST 11 L, ALT 21, Alkaline Phosphatase 66, Total Protein 7.6, Albumin 3.8, Globulin 3.8, Albumin/Globulin Ratio 1.0 11/02/24 16:10: Urine Color Straw, Urine Clarity Clear, Urine pH 7.0, Ur Specific [place] 1.010, Urine Protein 15 H, Urine Glucose (UA) 100 H, Urine Ketones 5 H, Urine Occult Blood 250 H, Urine Nitrite Positive H, Urine Bilirubin Negative, Urine Urobilinogen Normal, Ur Leukocyte Esterase 500 H, Urine RBC 0-5 SEEN, Urine WBC 5-10 SEEN, Ur Squamous Epith Cells 0-5 SEEN, Urine Bacteria 4+, Urine Mucus 0 SEEN 11/02/24 19:03: Lactic Acid 1.8 11/03/24 04:20: POC Glucose 108 H 11/03/24 06:11: WBC 5.8, RBC 3.28 L, Hgb 10.3 L, Hct 30.6 L, MCV 93.3, MCH 31.4, MCHC 33.7, RDW Std Deviation 41.4, RDW Coeff of Anne 12.0, Plt Count 198, MPV 10.0, Immature Gran % (Auto) 0.700, Neut % (Auto) 68.9, Lymph % (Auto) 17.6 L, [place] % (Auto) 9.9, Eos % (Auto) 2.6, Baso % (Auto) 0.3, Absolute Neuts (auto) 4.0, Absolute Lymphs (auto) 1.02, Nucleated RBC % 0, Sodium 133 L, Potassium 3.8, Chloride 98, Carbon Dioxide 28.0, Anion Gap 7, BUN 6 L, Creatinine 0.34 L, Estim Creat Clear Calc 167.47, Est GFR (MDRD) Af Amer 282, Est GFR (MDRD) Non-Af 233, BUN/Creatinine Ratio 17.6, Glucose 118 H, Calcium 9.4 11/03/24 08:13: POC Glucose 105 11/03/24 11:05: POC Glucose 89 Micro: Microbiology 11/02/24 16:10 Urine, Catheterized Urine Culture - Preliminary Presumptive E. coli 11/02/24 21:25 Mucosa - Nasopharyngeal Respiratory Panel (PCR) - Final 11/02/24 14:42 Mucosa - Nose SARS-CoV-2, Influenza & RSV (PCR) - Final Radiography Diagnostic Testing: Radiology Impression Chest X-Ray 11/02/24 15:10 IMPRESSION: Stable pleural-parenchymal changes in the left lung base. Reading Location: [id number] Lumbar Spine X-Ray 11/02/24 15:10 IMPRESSION: Severe dextroscoliosis with immobilization by a long Mckoen angelo. Degenerative changes of the left hip. Other nonacute findings noted above. Reading Location: [facility] Physical Exam Const Constitutional Narrative: Patient with cerebral palsy, laying comfortably in bed and opens eyes spontaneously but does not follow commands. HEENT head/scalp atraumatic Eyes Eyes Narrative: Opens eyes spontaneously. Neck Neck Narrative: Trach in place. Resp normal respiratory effort and no use of accessory muscles Resp Narrative: Stable on mechanical ventilation, at baseline. Cardio no murmurs Cardio Narrative: Mild sinus tachycardia, stable. GI GI Narrative: PEG tube in place, site clean and dry. Abdomen otherwise soft, nontender, nondistended. Extremity Extremity Narrative: Chronic changes noted. Skin Skin Narrative: No rashes noted. Neuro Neuro Narrative: Not able to participate in neuroexam. Assessment & Plan Assessment/Plan (1) UTI (urinary tract infection): PLAN: Plan Patient is a 34-year-old female who presented [facility] ED on 11/02/2024 with fevers and concern for recurrent UTI. 1. Recurrent UTI, history of ESBL UTI ? Infectious disease following. UA on admit showed positive nitrites, 500 leukocyte esterase, 4+ bacteria, mild pyuria. Urine culture pending. Continue meropenem for now per ID recs. 2. Hyponatremia ? Sodium 127 on admit, improved to 133 on hospital day 2 after IV fluid resuscitation. Continue to monitor daily BMP. 3. Bumps on back ? Lumbar x-ray on admit with no acute abnormality, did show known angelo that was placed many years ago. ED physician did not appreciate any significant abnormalities ongoing the patient and mother felt that protrusions were improving. Stable on hospital day 2. Continue to monitor, no need for orthopedic spine consult at this time. 4. History of cerebral palsy/chronic PEG tube/straight cath twice daily/nonverbal/ventilator dependent ? Continue supportive care and present home management. Nutrition following for assistance with tube feeds. Straight cath twice daily ordered. 5. History of kidney stones ? Follows outpatient with Dr. Anaya, no inpatient needs. 6. Seizure disorder ?Continue home Trileptal. 7. Type 2 diabetes mellitus ? Continue Lantus and sliding scale insulin as needed. DVT prophylaxis: Lovenox CODE STATUS: DNR CCA, DNI Expected disposition: Home, TBD Total clinical time spent by myself addressing the patient's medical issues, reviewing all the data, and collaborating with patient's care team: 35 minutes. Charges/Coding Visit Charges Inpatient E&M: 66752 Subs Hosp L2
[2024-11-03] MEDS: [UNRECOGNIZED DRUG - OTHER] 160 GT ×2 (13:55→16:40)
[2024-11-03 14:22] LABS: Bedside Glucose 161 mg/dL (74-106)
[2024-11-03] MEDS: diazePAM 5 MG Tablet PO (14:36)
[2024-11-03] MEDS: Potassium Chloride Oral Soln 20 MEQ/15 ML UDC 10 MEQ PO (14:37)
[2024-11-03 16:59] LABS: Bedside Glucose 140 mg/dL (74-106)
[2024-11-03 19:15] VITALS: PULSE 14; PULSE 74; RESP 14; RESP 15; O2SAT 70
[2024-11-03] MEDS: Insulin Glargine-YFGN 100 UNIT/ML Pen 20 UNIT SC (20:09)
[2024-11-03 20:30] VITALS: BP 142/109; PULSE 82; RESP 16; TEMP 36.9; O2SAT 98
--- NOTE | 2024-11-03 20:30 | NURSING ---
Per pt father, he does not want vitals taken until around 06:00 again when she wakes up unless need be. Vitals stable at this time.
[2024-11-03 21:26] LABS: Bedside Glucose 115 mg/dL (74-106)
[2024-11-04] VITALS (7 sets, daily range): BP systolic 112–124; BP diastolic 73–90; PULSE 61–77; RESP 14–24; TEMP 36.2–36.8; O2SAT 100
[2024-11-04 05:16] LABS: Hematocrit 31.7 % (37-47); Hemoglobin 10.7 g/dL (12.0-15.0); Mean Corp Hgb Conc 33.8 g/dL (32-36); Mean Corpuscular Hgb 32.2 pg (27.0-32.0); Mean Corpuscular Volume 95.5 fL (81-99); Mean Platelet Vol. 10.2 fl (6.2-12.0); Platelet Count 201 K/mm3 (150-450); RBC Distribution Width CV 12.4 % (11.6-14.6); RBC Distribution Width SD 43.2 fl (35.1-43.9); Red Blood Count 3.32 M/mm3 (4.2-5.4); White Blood Count 5.9 K/mm3 (4.4-11.0)
[2024-11-04] MEDS: Meropenem 1 GM in 0.9% Normal Saline (100mL MB+) 100 ML IV ×3 (05:32→22:11)
[2024-11-04 05:34] LABS: Anion Gap 6 (5-15); BUN 6 mg/dL (7-18); BUN/Creat Ratio 19.5 RATIO (10-20); Calcium,Total 9.3 mg/dL (8.5-10.1); Chloride 107 mmol/L (98-107); Creatinine, Serum 0.31 mg/dL (0.55-1.02); EST Glomerular Filtration Rate 263 mL/min (>60); Est Glom Filt Rate - Afr Amer 318 mL/min (>60); Estimated Creatinine Clearance 183.67 ml/min; Glucose 103 mg/dL (74-106); Potassium 4.2 mmol/L (3.5-5.1); Sodium Level 139 mmol/L (136-145)
[2024-11-04] MEDS: Baclofen 10 MG Tablet 30 MG GT ×3 (07:56→20:49)
[2024-11-04] MEDS: diazePAM 5 MG Tablet 7.5 MG GT ×2 (08:02→20:49)
[2024-11-04] MEDS: OXCARBAZEPINE 300 MG/5 ML 480 MG PO ×2 (08:03→20:53)
[2024-11-04] MEDS: [UNRECOGNIZED DRUG - OTHER] 160 GT ×4 (08:06→17:04)
[2024-11-04 09:53] LABS: Bedside Glucose 93 mg/dL (74-106)
[2024-11-04] MEDS: Methenamine Hippurate 1 GM Tablet PO ×2 (09:57→20:49)
[2024-11-04] MEDS: Enoxaparin 40 MG/0.4 ML Syringe SC (09:57)
[2024-11-04] MEDS: Loratadine 10 MG Tablet GT (09:57)
[2024-11-04] MEDS: Potassium Chloride Oral Soln 20 MEQ/15 ML UDC 10 MEQ PO (09:57)
[2024-11-04] MEDS: Cholecalciferol (VIT D3) 25 MCG TABLET (1,000 UNITS) 50 MCG GT (09:57)
--- NOTE | 2024-11-04 10:01 | PN.HOSP_ITS ---
Reason for Visit Reason for Visit: Diagnoses Chronic respiratory failure with hypoxia (11/02/24) Urinary tract infection, site not specified (11/02/24) Aphasia (11/02/24) Personal history of other diseases of the nervous system and sense organs (11/02/24) Subjective Subjective Saw patient at bedside this morning, mother and father present. Patient appeared similar to yesterday, was laying back comfortably in bed. Mother and father note that she appeared similar to yesterday and have no new concerns today. Objective Data Objective Data Vital Signs: Vital Signs Temp Pulse Resp BP Pulse Ox O2 Del Method O2 Flow Rate 98.0 F 77 18 122/90 H 100 Mechanical Ventilator 3 11/04/24 08:10 11/04/24 08:10 11/04/24 08:10 11/04/24 08:10 11/04/24 08:10 11/04/24 08:12 11/03/24 07:55 Oxygen Flow Rate (L/min) 3 Oxygen Delivery Method Mechanical Ventilator Weight: 47.9 kg Body Mass Index (BMI) 25.0 Intake & Output: Intake and Output for Last 24 Hours 11/02/24 11/03/24 11/04/24 23:59 23:59 23:59 Intake Total 1140 / 1140 1110.83 / 1110.83 Balance 1140 / 1140 1110.83 / 1110.83 Lab / Micro Data 11/04/24 04:49 11/04/24 04:49 Labs: Laboratory Results - last 24 hr 11/03/24 11:05: POC Glucose 89 11/03/24 13:50: POC Glucose 161 H 11/03/24 16:38: POC Glucose 140 H 11/03/24 20:07: POC Glucose 115 H 11/04/24 04:49: WBC 5.9, RBC 3.32 L, Hgb 10.7 L, Hct 31.7 L, MCV 95.5, MCH 32.2 H, MCHC 33.8, RDW Std Deviation 43.2, RDW Coeff of Anne 12.4, Plt Count 201, MPV 10.2, Sodium 139, Potassium 4.2, Chloride 107, Carbon Dioxide 26.0, Anion Gap 6, BUN 6 L, Creatinine 0.31 L, Estim Creat Clear Calc 183.67, Est GFR (MDRD) Af Amer 318, Est GFR (MDRD) Non-Af 263, BUN/Creatinine Ratio 19.5, Glucose 103, Calcium 9.3 11/04/24 08:05: POC Glucose 93 Micro: Microbiology 11/02/24 16:10 Urine, Catheterized Urine Culture - Final ESBL Escherichia coli 11/02/24 21:25 Mucosa - Nasopharyngeal Respiratory Panel (PCR) - Final 11/02/24 14:42 Mucosa - Nose SARS-CoV-2, Influenza & RSV (PCR) - Final Physical Exam Const Constitutional Narrative: Patient with cerebral palsy, laying comfortably in bed and opens eyes spontaneously but does not follow commands. HEENT head/scalp atraumatic Eyes Eyes Narrative: Opens eyes spontaneously. Neck Neck Narrative: Trach in place. Resp normal respiratory effort and no use of accessory muscles Resp Narrative: Stable on mechanical ventilation, at baseline. Cardio no murmurs Cardio Narrative: Mild sinus tachycardia, stable. GI GI Narrative: PEG tube in place, site clean and dry. Abdomen otherwise soft, nontender, nondistended. Extremity Extremity Narrative: Chronic changes noted. Skin Skin Narrative: No rashes noted. Neuro Neuro Narrative: Not able to participate in neuroexam. Assessment & Plan Assessment/Plan (1) UTI (urinary tract infection): PLAN: Plan Patient is a 34-year-old female who presented [facility] ED on 11/02/2024 with fevers and concern for recurrent UTI. 1. Recurrent ESBL E. coli UTI ? Infectious disease following. UA on admit showed positive nitrites, 500 leukocyte esterase, 4+ bacteria, mild pyuria. Urine culture growing > 100K ESBL E. coli sensitive to meropenem. Patient afebrile and hemodynamically stable since 11/03. Will continue meropenem and suspect patient will need PICC line on discharge to complete course of meropenem but will defer this to ID. 2. Hyponatremia, resolved ? Sodium 127 on admit, improved to 139 by hospital day 3 after IV fluid resuscitation. Resolved. 3. Bumps on back ? Lumbar x-ray on admit with no acute abnormality, did show known angelo that was placed many years ago. ED physician did not appreciate any significant abnormalities ongoing the patient and mother felt that protrusions were improving. Stable on hospital day 2. Continue to monitor, no need for orthopedic spine consult at this time. 4. History of cerebral palsy/chronic PEG tube/straight cath twice daily/nonverbal/ventilator dependent ? Continue supportive care and present home management. Nutrition following for assistance with tube feeds. Straight cath twice daily ordered. 5. History of kidney stones ? Follows outpatient with Dr. Anaya, no inpatient needs. 6. Seizure disorder ?Continue home Trileptal. 7. Type 2 diabetes mellitus ? Continue Lantus and sliding scale insulin as needed. DVT prophylaxis: Lovenox CODE STATUS: DNR CCA, DNI Expected disposition: Home, 1 to 2 days Total clinical time spent by myself addressing the patient's medical issues, reviewing all the data, and collaborating with patient's care team: 35 minutes. Charges/Coding Visit Charges Inpatient E&M: 05279 Subs Hosp L2
[2024-11-04] MEDS: Insulin Lispro 100 UNIT/ML INSULN.PEN 18 UNIT SC ×2 (11:04→14:06)
[2024-11-04 11:31] LABS: Bedside Glucose 143 mg/dL (74-106)
[2024-11-04] MEDS: diazePAM 5 MG Tablet PO (13:54)
[2024-11-04] MEDS: Ketorolac 15 MG/ML Vial IV (14:07)
[2024-11-04] MEDS: Albuterol 2.5 MG/3 ML VIAL.NEB. INHALATION ×2 (14:55→20:18)
[2024-11-04 14:57] LABS: Bedside Glucose 114 mg/dL (74-106)
[2024-11-04 17:22] LABS: Bedside Glucose 98 mg/dL (74-106)
[2024-11-04] MEDS: Budesonide Respules 0.5 MG/2 ML AMPUL.NEB. INHALATION (20:18)
[2024-11-04] MEDS: Insulin Glargine-YFGN 100 UNIT/ML Pen 20 UNIT SC (22:10)
[2024-11-04 22:38] LABS: Bedside Glucose 96 mg/dL (74-106)
[2024-11-05 02:55] VITALS: BP 116/74; PULSE 74; RESP 18; TEMP 36.6; O2SAT 100
--- NOTE | 2024-11-05 03:26 | CPS ---
Patient on home LTV vent with 3 liter oxygen bleed
[2024-11-05] MEDS: Meropenem 1 GM in 0.9% Normal Saline (100mL MB+) 100 ML IV ×3 (05:24→22:57)
[2024-11-05] MEDS: 0.9% Saline Lock 10 ML Syringe IV ×3 (05:26→20:58)
[2024-11-05] MEDS: Budesonide Respules 0.5 MG/2 ML AMPUL.NEB. INHALATION ×2 (07:11→20:34)
[2024-11-05] MEDS: Albuterol 2.5 MG/3 ML VIAL.NEB. INHALATION (07:11)
[2024-11-05 07:13] VITALS: PULSE 54; RESP 20; O2SAT 99
--- NOTE | 2024-11-05 07:19 | CPS ---
patient on home LTV vent at this time with 3 liters oxygen
[2024-11-05] MEDS: [UNRECOGNIZED DRUG - OTHER] 160 GT ×4 (08:06→17:04)
[2024-11-05] MEDS: Baclofen 10 MG Tablet 30 MG GT ×3 (08:15→20:31)
[2024-11-05] MEDS: diazePAM 5 MG Tablet 7.5 MG GT ×2 (08:15→20:31)
[2024-11-05] MEDS: Methenamine Hippurate 1 GM Tablet PO ×2 (08:16→20:31)
[2024-11-05] MEDS: Cholecalciferol (VIT D3) 25 MCG TABLET (1,000 UNITS) 50 MCG GT (08:16)
[2024-11-05] MEDS: Loratadine 10 MG Tablet GT (08:16)
[2024-11-05] MEDS: OXCARBAZEPINE 300 MG/5 ML 480 MG PO ×2 (08:19→20:36)
[2024-11-05] MEDS: Enoxaparin 40 MG/0.4 ML Syringe SC (08:20)
[2024-11-05 08:24] LABS: Bedside Glucose 88 mg/dL (74-106)
[2024-11-05] MEDS: Ketorolac 15 MG/ML Vial IV ×2 (08:31→20:57)
[2024-11-05 08:55] VITALS: BP 140/86; PULSE 84; RESP 18; TEMP 36.8; O2SAT 100
--- NOTE | 2024-11-05 10:41 | PN.HOSP_ITS ---
Reason for Visit Reason for Visit: Diagnoses Chronic respiratory failure with hypoxia (11/02/24) Urinary tract infection, site not specified (11/02/24) Aphasia (11/02/24) Personal history of other diseases of the nervous system and sense organs (11/02/24) Subjective Subjective Saw patient at bedside this morning, mother present. Patient appeared similar to previous days. Per mother, no new concerns this morning. Objective Data Objective Data Vital Signs: Vital Signs Temp Pulse Resp BP Pulse Ox O2 Del Method O2 Flow Rate 98.3 F 84 18 140/86 H 100 Mechanical Ventilator 3 11/05/24 08:55 11/05/24 08:55 11/05/24 08:55 11/05/24 08:55 11/05/24 08:55 11/05/24 09:38 11/05/24 07:13 Oxygen Flow Rate (L/min) 3 Oxygen Delivery Method Mechanical Ventilator Weight: 47.9 kg Body Mass Index (BMI) 25.0 Intake & Output: Intake and Output for Last 24 Hours 11/03/24 11/04/24 11/05/24 23:59 23:59 23:59 Intake Total 1110.83 / 1110.83 240 / 240 240 / 240 Balance 1110.83 / 1110.83 240 / 240 240 / 240 Lab / Micro Data 11/04/24 04:49 11/04/24 04:49 Labs: Laboratory Results - last 24 hr 11/04/24 11:03: POC Glucose 143 H 11/04/24 14:01: POC Glucose 114 H 11/04/24 17:01: POC Glucose 98 11/04/24 22:08: POC Glucose 96 11/05/24 08:04: POC Glucose 88 Micro: Microbiology 11/02/24 18:30 Blood Culture (Wb) - Left Hand Blood Culture - Preliminary No growth in 48 hours. 11/02/24 16:50 Blood Culture (Wb) - Left Hand Blood Culture - Preliminary No growth in 48 hours. 11/02/24 16:10 Urine, Catheterized Urine Culture - Final ESBL Escherichia coli 11/02/24 21:25 Mucosa - Nasopharyngeal Respiratory Panel (PCR) - Final 11/02/24 14:42 Mucosa - Nose SARS-CoV-2, Influenza & RSV (PCR) - Final Physical Exam Const Constitutional Narrative: Patient with cerebral palsy, laying comfortably in bed and opens eyes spontaneously but does not follow commands. HEENT head/scalp atraumatic Eyes Eyes Narrative: Opens eyes spontaneously. Neck Neck Narrative: Trach in place. Resp normal respiratory effort and no use of accessory muscles Resp Narrative: Stable on mechanical ventilation, at baseline. Cardio no murmurs Cardio Narrative: Mild sinus tachycardia, stable. GI GI Narrative: PEG tube in place, site clean and dry. Abdomen otherwise soft, nontender, nondistended. Extremity Extremity Narrative: Chronic changes noted. Skin Skin Narrative: No rashes noted. Neuro Neuro Narrative: Not able to participate in neuroexam. Assessment & Plan Assessment/Plan (1) UTI (urinary tract infection): PLAN: Plan Patient is a 34-year-old female who presented [facility] ED on 11/02/2024 with fevers and concern for recurrent UTI. 1. Recurrent ESBL E. coli UTI ? Infectious disease following. UA on admit showed positive nitrites, 500 leukocyte esterase, 4+ bacteria, mild pyuria. Urine culture growing > 100K ESBL E. coli sensitive to meropenem. Patient afebrile and hemodynamically stable since 11/03. Will continue meropenem and suspect patient will need PICC line on discharge to complete course of meropenem but will defer this to ID. 2. Hyponatremia, resolved ? Sodium 127 on admit, improved to 139 by hospital day 3 after IV fluid resuscitation. Resolved. 3. Bumps on back ? Lumbar x-ray on admit with no acute abnormality, did show known angelo that was placed many years ago. ED physician did not appreciate any significant abnormalities ongoing the patient and mother felt that protrusions were improving. Stable on hospital day 2. Notably mother did ask for orthopedic surgery consult but given known chronic issues and no acute issues, no need for inpatient consult at this time. 4. History of cerebral palsy/chronic PEG tube/straight cath twice daily/nonverbal/ventilator dependent ? Continue supportive care and present home management. Nutrition following for assistance with tube feeds. Straight cath twice daily ordered. 5. History of kidney stones ? Follows outpatient with Dr. Anaay, no inpatient needs. 6. Seizure disorder ?Continue home Trileptal. 7. Type 2 diabetes mellitus ? Continue Lantus and sliding scale insulin as needed. DVT prophylaxis: Lovenox CODE STATUS: DNR CCA, DNI Expected disposition: Home, 1 to 2 days Total clinical time spent by myself addressing the patient's medical issues, reviewing all the data, and collaborating with patient's care team: 35 minutes. Charges/Coding Visit Charges Inpatient E&M: 31748 Subs Hosp L2
[2024-11-05] MEDS: Potassium Chloride Oral Soln 20 MEQ/15 ML UDC 10 MEQ PO (10:58)
[2024-11-05] MEDS: Insulin Lispro 100 UNIT/ML INSULN.PEN 18 UNIT SC ×2 (10:59→14:19)
[2024-11-05 11:28] LABS: Bedside Glucose 116 mg/dL (74-106)
[2024-11-05] MEDS: Insulin Lispro 100 UNIT/ML INSULN.PEN SC (14:18)
[2024-11-05] MEDS: diazePAM 5 MG Tablet PO (14:30)
[2024-11-05 14:41] LABS: Bedside Glucose 210 mg/dL (74-106)
[2024-11-05 14:55] VITALS: BP 127/94; PULSE 63; RESP 18; TEMP 36.7; O2SAT 100
[2024-11-05 17:29] LABS: Bedside Glucose 94 mg/dL (74-106)
[2024-11-05 20:17] VITALS: PULSE 69; RESP 14; O2SAT 99
[2024-11-05 20:26] VITALS: BP 123/79; PULSE 70; RESP 18; TEMP 36.4; O2SAT 100
[2024-11-05] MEDS: Insulin Glargine-YFGN 100 UNIT/ML Pen 20 UNIT SC (22:56)
[2024-11-05 23:17] LABS: Bedside Glucose 88 mg/dL (74-106)
[2024-11-06] VITALS (7 sets, daily range): BP systolic 102–125; BP diastolic 69–81; PULSE 63–80; RESP 14–20; TEMP 36.2–37.1; O2SAT 98–100
[2024-11-06 04:55] LABS: Hematocrit 30.1 % (37-47); Hemoglobin 10.3 g/dL (12.0-15.0); Mean Corp Hgb Conc 34.2 g/dL (32-36); Mean Corpuscular Hgb 32.4 pg (27.0-32.0); Mean Corpuscular Volume 94.7 fL (81-99); Mean Platelet Vol. 10.6 fl (6.2-12.0); Platelet Count 208 K/mm3 (150-450); RBC Distribution Width CV 12.1 % (11.6-14.6); RBC Distribution Width SD 42.2 fl (35.1-43.9); Red Blood Count 3.18 M/mm3 (4.2-5.4); White Blood Count 5.9 K/mm3 (4.4-11.0)
[2024-11-06 05:05] LABS: Anion Gap 8 (5-15); BUN 7 mg/dL (7-18); BUN/Creat Ratio 40.9 RATIO (10-20); Calcium,Total 9.6 mg/dL (8.5-10.1); Chloride 101 mmol/L (98-107); Creatinine, Serum 0.17 mg/dL (0.55-1.02); EST Glomerular Filtration Rate 516 mL/min (>60); Est Glom Filt Rate - Afr Amer 624 mL/min (>60); Glucose 95 mg/dL (74-106); Potassium 3.9 mmol/L (3.5-5.1); Sodium Level 133 mmol/L (136-145)
[2024-11-06] MEDS: Meropenem 1 GM in 0.9% Normal Saline (100mL MB+) 100 ML IV (05:38)
[2024-11-06] MEDS: Budesonide Respules 0.5 MG/2 ML AMPUL.NEB. INHALATION ×2 (07:25→19:42)
[2024-11-06] MEDS: diazePAM 5 MG Tablet 7.5 MG GT (08:12)
[2024-11-06] MEDS: [UNRECOGNIZED DRUG - OTHER] 160 GT ×4 (08:12→16:53)
[2024-11-06] MEDS: OXCARBAZEPINE 300 MG/5 ML 480 MG PO (08:12)
[2024-11-06] MEDS: Baclofen 10 MG Tablet 30 MG GT ×2 (08:12→14:13)
[2024-11-06 09:51] LABS: Bedside Glucose 95 mg/dL (74-106)
[2024-11-06] MEDS: Potassium Chloride Oral Soln 20 MEQ/15 ML UDC 10 MEQ PO (10:00)
[2024-11-06] MEDS: Ferrous Sulfate 300 MG/5 ML UDC GT (10:00)
[2024-11-06] MEDS: Cholecalciferol (VIT D3) 25 MCG TABLET (1,000 UNITS) 50 MCG GT (10:00)
[2024-11-06] MEDS: Loratadine 10 MG Tablet GT (10:01)
[2024-11-06] MEDS: Methenamine Hippurate 1 GM Tablet PO (10:01)
[2024-11-06] MEDS: Enoxaparin 40 MG/0.4 ML Syringe SC (10:01)
--- NOTE | 2024-11-06 10:45 | CASEMGMT ---
Addendum entered by Mey Son 11/06/24 16:31: HIREN WILSON received update from [facility] that medication will be delivered to patient's home this evening. HIREN WILSON updated Rina, mother, regarding antibiotics setup and delivery this evening. Rina had no further questions or concerns. HIREN WILSON updated community health nursing director to schedule transport. Original Note: HIREN WILSON updated by ID that patient will need IV ertapenem daily for 5 days. HIREN WILSON in to discuss needs at discharge with patient's mother. Mother prefers [facility] for IV ATBs and [facility] Mother is requesting cot for discharge and prefers for patient to transported on patient's home vent. Mother had no further questions or concerns. PICC line will need to be inserted prior to discharge. HIREN WILSON updated community health nursing director regarding transport request. HIREN WILSON sent referral to [facility] via [facility] with anticipate discharge this afternoon. HIREN WILSON updated discharge planning consultant to send resumption referral to [facility]. CM will continue to follow this patient and plan for a safe discharge.
--- NOTE | 2024-11-06 10:47 | CASEMGMT ---
Addendum entered by Dania Us 11/06/24 16:07: Discharge instructions sent to [facility]. Dania Us DC Planning Asst. Original Note: Discharge Planning HH resumption order sent to [facility]. Dania sU DC Planning Asst.
[2024-11-06] MEDS: Ertapenem Sod 1 GM in 0.9% Normal Saline (50mL MB+) 50 ML IV (11:00)
[2024-11-06] MEDS: Insulin Lispro 100 UNIT/ML INSULN.PEN 18 UNIT SC ×3 (11:03→16:53)
--- NOTE | 2024-11-06 11:19 | PCM.PN.ID ---
Physical Exam Narrative No fever, doing better per her mom Const alert and no apparent distress Resp normal air movement and clear to auscultation bilaterally Cardio regular rate and regular rhythm GI soft to palpation, non-tender and non-distended Skin No no rashes or lesions noted ID ID: Route of nutrition/ use of supplements: [] Nutritional Intake: [] IV Site: [] Owens Catheter: [] Assessment & Plan Assessment/Plan (1) Nonverbal: (2) History of cerebral palsy: (3) UTI (urinary tract infection): PLAN: Passed stones in ED. UA with mild pyuria. Ucx esbl ecoli. On snow, ok for home with midline and 5 days iv ertapenem. Wrote rx, d/w welfare case worker. Will follow prn (4) Chronic respiratory failure: QUALIFIERS: Respiratory failure complication: hypoxia Qualified Code(s): J96.11 - Chronic respiratory failure with hypoxia
[2024-11-06 12:02] LABS: Bedside Glucose 141 mg/dL (74-106)
[2024-11-06] MEDS: diazePAM 5 MG Tablet PO (14:17)
[2024-11-06 14:52] LABS: Bedside Glucose 123 mg/dL (74-106)
--- NOTE | 2024-11-06 15:20 | DCINST_ITS ---
Discharge Instructions Diet Discharge Diet: - (Resume home regimen) DC O2, CPAP, BIPAP needs Home O2 Discharge instructions: Yes Type of respiratory needs?: Oxygen Oxygen frequency: Other Other oxygen liters per minute: Continue ventilator Other oxygen frequency: Continue ventilator Dressing / Incision Discharge Activity: Return to Normal Activity Follow Up Care Test Results: Test results from this visit will be discussed in further detail at your follow- up appointment, if applicable. Discharge Plan Admission Admit Date/Time: 11/02/24 18:47 Primary Reason for Your Visit: back pain Attending Provider: Shanice Ray Primary Care Provider: Sandra Bermudez Consulting Providers: Rafa Bettencourt; Shanice Ray; Casey Mcgrath; Gamal Rodas Instructions Patient Instructions: ED Cystitis Female Adult Additional Instructions / Restrictions: DISCHARGE INSTRUCTIONS PLEASE READ *Please take this with you to your next doctors appointment* -You will be set up for ertapenem on discharge -Please call your primary care provider's office upon discharge to schedule a hospital follow up within 1 week. -For any concerning signs or symptoms please call 911 or proceed to the nearest emergency department Discharge Orders/Prescriptions Prescriptions: New ertapenem 1 gram Recon Soln 1 g IV Q24 5 Days Qty: 5 0RF Rx Instructions: Dx: ESBL infection Continued oxcarbazepine [Trileptal] 300 mg/5 mL (60 mg/mL) suspension 8 ml GT BID insulin glargine [Basaglar KwikPen U-100 Insulin] 100 unit/mL (3 mL) insulin pen 20 unit subcut QPM Qty: 15 2RF insulin aspart U-100 [Novolog FlexPen U-100 Insulin] 100 unit/mL (3 mL) insulin pen 18 unit subcut TID Qty: 33 3RF Rx Instructions: 160 +3, 201 +5, 241 +8, 280 +10 This is sliding scale, caregiver understands how to administer. (DME) True Metrix Glucose Test Strip Strip See Rx Instructions .Route Qty: 150 12RF Rx Instructions: 5 times per day with tube feedings baclofen 20 MG tablet 30 mg GT TID Patient Comments: pain ferrous sulfate 15 mg iron (75 mg)/mL syringe 5 ml feeding tube MOTH Rx Instructions: TWICE WEEKLY ON WEDNESDAY AND WEDNESDAY diazepam 5 mg/5 mL (1 mg/mL) Solution 7 mg feeding tube BID diazepam 5 mg/5 mL (1 mg/mL) Solution 5 mg feeding tube DAILY@1400 miconazole nitrate [Monistat 7] 2 % Cream 1 appful VAGINAL DAILY PRN (Reason: YEAST) ibuprofen 100 mg/5 mL Suspension 400 mg PO Q6H PRN (Reason: Pain) sodium chloride 0.9 % Solution For Nebulization 3 - 6 ml INHALATION Q2H PRN (Reason: Congestion) ascorbic acid (vitamin C) 500 mg/5 mL Syrup 500 mg feeding tube BID cholecalciferol (vitamin D3) 50 mcg (2,000 unit) Capsule 50 mcg feeding tube DAILY naphazoline 0.012 % Drops 2 drp OPHTHALMIC (EYE) DAILY PRN (Reason: allergies) acetaminophen 160 mg/5 mL Liquid 640 mg PO Q4H PRN (Reason: pain/fever) magnesium hydroxide [Milk of Magnesia] 400 mg/5 mL Suspension 15 - 60 ml PO DAILY PRN (Reason: Constipation) Debrox 6.5 % Drops 5 drp EACH EAR DAILY PRN (Reason: Ear Wax) nystatin 100,000 unit/gram Powder 1 applic TOPICAL BID PRN (Reason: redness) acidophilus-pectin, citrus 25 million cell -100 mg tablet 1 tab G-tube DAILY Rx Instructions: Gmfi-utc-lncktum nutritional supplements Powder 1 ea PO BID Rx Instructions: GIVEN VIIA G-TUBE BID docusate sodium 60 mg/15 mL Syrup 60 mg feeding tube DAILY meropenem 1 gram Recon Soln 1 g IV Q8 7 Days Qty: 21 0RF Rx Instructions: dx: esbl infection weekly bmp, cbc, and LFT while on iv abx. Fax to [phone] hydrocortisone [Ala-Brown] 1 % cream 1 applic topical 4X/DAY PRN (Reason: itching) bacitracin 500 unit/gram ointment 1 applic topical 4X/DAY PRN (Reason: ABRASIONS) methenamine hippurate 1 gram tablet 1 g PO BID Manuka Honey 80 % gel 1 applic topical BID PRN (Reason: wound healing) potassium chloride 20 mEq/15 mL liquid 10 meq PO DAILY Centrum 9 mg iron/ 15 mL (15 mL) liquid 5 ml PO DAILY guaifenesin 100 mg/5 mL liquid 200 mg GT Q4H PRN (Reason: thick secretions) trolamine salicylate [Alcis] 10 % cream 1 applic topical 4X/DAY PRN (Reason: muscle pain) phenazopyridine 200 mg tablet 200 mg feeding tube TID PRN (Reason: pain) Patient Comments: [NO ORIGINAL SIG] GenTeal Tears Severe Gel 0.3 % gel 1 drp EACH EYE BID PRN (Reason: dry eyes) sodium chloride 0.9 % aerosol,spray 1 applic topical PRN Rx Instructions: INSTILL 30 DROPS OR 1ML EVERY HOUR NEEDED INTO TRACH TO THIN SECRETIONS levalbuterol HCl 1.25 mg/3 mL solution for nebulization 1.25 mg INHALATION BID Qty: 90 5RF (DME) True Metrix Pro Test Strip Strip See Rx Instructions .ROUTE .MEDSUPPLY Qty: 400 3RF Rx Instructions: 4 times daily, plus extra for mental status change cetirizine 5 mg/5 mL solution 10 mg PO DAILY Qty: 300 11RF (DME) lancets [Embrace Lancets] 30 gauge misc See Rx Instructions .Route Qty: 200 8RF Rx Instructions: 4x/day fluticasone propionate [Flovent HFA] 44 mcg/actuation HFA aerosol inhaler 2 puff INHALATION BID Qty: 10.6 11RF Rx Instructions: administer with spacer levalbuterol HCl 1.25 mg/3 mL solution for nebulization 1.25 mg INHALATION Q4H PRN (Reason: sob) Qty: 150 11RF (DME) pen needle, diabetic [BD Ultra-Fine Priyanka Pen Needle] 32 gauge x 5/32 needle See Rx Instructions .ROUTE .MEDSUPPLY Qty: 360 3RF Rx Instructions: 5 times daily Referrals / Follow Up: Sandra Bermudez DO [Primary Care Provider] - In 1 Week Disposition Disposition (needs filled in before D/C Order can be placed): Home Health Service
--- NOTE | 2024-11-06 15:26 | PCM.DC.SUM ---
Providers Date of Admission: 11/02/24 Date of Discharge: 11/06/24 Primary Care Physician: Dr. Sandra Bermudez, Consultations 11/02/24 20:31 Consult: Infectious Disease Routine Consulting Provider: Rafa Bettencourt Reason for Consult: known ESBL UTIs, here w/ UTI EMERGENT Consult: No MD Notified: Yes Date Notified: 11/02/24 Time Notified: 20:53 Method of Notification: Answering Service 11/06/24 14:10 Consult: Orthopedics Routine Consulting Provider: Gamal Rodas Reason for Consult: orthospine- cerebral palsy, hx scoliosis w/ angelo, fam concerned it ?moved EMERGENT Consult: No MD Notified: Yes Date Notified: 11/06/24 Time Notified: 15:05 Method of Notification: Text Reason For Visit: SUSPECT ESBL UTI Diagnosis Discharge Diagnosis (1) Nonverbal: Status: Acute Code(s): R47.01 - Aphasia (2) History of cerebral palsy: Status: Acute Code(s): Z86.69 - Personal history of other diseases of the nervous system and sense organs (3) UTI (urinary tract infection): Status: Acute Code(s): N39.0 - Urinary tract infection, site not specified (4) Chronic respiratory failure: Status: Chronic Code(s): J96.10 - Chronic respiratory failure, unspecified whether with hypoxia or hypercapnia Qualifiers: Respiratory failure complication: hypoxia Qualified Code(s): J96.11 - Chronic respiratory failure with hypoxia Plan # ESBL UTI # Hyponatremia-at baseline # Bumps on back- unclear significance # History of cerebral palsy/chronic PEG tube/straight cath twice daily/nonverbal/ventilator dependent # History of kidney stones #Seizure disorder #Type 2 diabetes mellitus Medications at Discharge Home Medications baclofen 20 mg tablet 30 mg G-tube TID muscle spasms 09/02/13 oxcarbazepine 300 mg/5 mL (60 mg/mL) oral suspension (Trileptal) 8 ml G-tube BID seizure 08/28/17 diazepam 5 mg/5 mL (1 mg/mL) oral solution 5 mg feeding tube DAILY@1400 spasms 05/20/21 diazepam 5 mg/5 mL (1 mg/mL) oral solution 7 mg feeding tube BID spasms 05/20/21 ascorbic acid (vitamin C) 500 mg/5 mL oral syrup 500 mg feeding tube BID SUPPLEMENT 12/12/21 cholecalciferol (vitamin D3) 50 mcg (2,000 unit) capsule 50 mcg feeding tube DAILY SUPPLEMENT 12/12/21 ibuprofen 100 mg/5 mL oral suspension 400 mg PO Q6H PRN Pain 12/12/21 miconazole nitrate 2 % vaginal cream (Monistat 7) 1 appful vaginal DAILY PRN YEAST 12/12/21 sodium chloride 0.9 % for nebulization 3 - 6 ml inhalation Q2H PRN Congestion 12/12/21 levalbuterol HCl 1.25 mg/3 mL solution for nebulization 1.25 mg (3 mL) inhalation BID BREATHING #90 mL 01/16/22 naphazoline 0.012 % eye drops 2 drp ophthalmic (eye) DAILY PRN allergies 02/24/22 acetaminophen 160 mg/5 mL oral liquid 640 mg PO Q4H PRN pain/fever 03/31/22 acidophilus 25 million cell-pectin, citrus 100 mg tablet 1 tab G-tube DAILY supplement 03/31/22 carbamide peroxide 6.5 % ear drops (Debrox) 5 drp EACH EAR DAILY PRN Ear Wax 03/31/22 magnesium hydroxide 400 mg/5 mL oral suspension (Milk of Magnesia) 15 - 60 ml PO DAILY PRN Constipation 03/31/22 nystatin 100,000 unit/gram topical powder 1 applic topical BID PRN redness 03/31/22 ferrous sulfate 15 mg iron (75 mg)/mL oral syringe (ORAL USE) 5 ml feeding tube MOTH supplement 08/24/22 docusate sodium 60 mg/15 mL oral syrup 60 mg feeding tube DAILY Check with primary doctor 08/29/22 nutritional supplements 1 ea PO BID Check with primary doctor 08/29/22 meropenem 1 gram intravenous solution 1 g IV Q8 7 days #21 ea 09/03/22 blood sugar diagnostic (True Metrix Pro Test Strip) #400 ea 02/23/23 cetirizine 5 mg/5 mL oral solution 10 mg (10 mL) PO DAILY allergy symptoms #300 mL 03/18/23 lancets 30 gauge (Embrace Lancets) #200 ea 11/11/23 fluticasone propionate 44 mcg/actuation HFA aerosol inhaler (Flovent HFA) 2 puff inhalation BID Check with primary doctor #10.6 grams 05/23/24 levalbuterol HCl 1.25 mg/3 mL solution for nebulization 1.25 mg (3 mL) inhalation Q4H PRN sob #150 mL 05/23/24 pen needle, diabetic 32 gauge x 5/32 (BD Ultra-Fine Priyanka Pen Needle) #360 ea 07/24/24 Novolog FlexPen U-100 Insulin 100 unit/mL (3 mL) subcutaneous (insulin aspart U-100) 18 unit (0.18 mL) subcut TID #33 mL 10/24/24 blood sugar diagnostic (True Metrix Glucose Test Strip) #150 ea 10/24/24 insulin glargine 100 unit/mL (3 mL) subcutaneous pen (Basaglar KwikPen U-100 Insulin) 20 unit (0.2 mL) subcut QPM #15 mL 10/24/24 artificial tears(hypromellose) 0.3 % eye gel (GenTeal Tears Severe) 1 drp EACH EYE BID PRN dry eyes 11/02/24 bacitracin 500 unit/gram topical ointment 1 applic topical 4X/DAY PRN ABRASIONS 11/02/24 guaifenesin 100 mg/5 mL oral liquid 200 mg G-tube Q4H PRN thick secretions 11/02/24 honey 80 % topical gel (Manuka Honey) 1 applic topical BID PRN wound healing 11/02/24 hydrocortisone 1 % topical cream (Ala-Brown) 1 applic topical 4X/DAY PRN itching 11/02/24 methenamine hippurate 1 gram tablet 1 g PO BID 11/02/24 fuyylqbc-dhum-vusrpxh gluconate 9 mg iron/15 mL (15 mL) oral liquid (Centrum) 5 ml PO DAILY 11/02/24 phenazopyridine 200 mg tablet 200 mg feeding tube TID PRN pain 11/02/24 potassium chloride 20 mEq/15 mL oral liquid 10 meq PO DAILY 11/02/24 sodium chloride 0.9 % topical spray 1 applic topical PRN 11/02/24 trolamine salicylate 10 % topical cream (Alcis) 1 applic topical 4X/DAY PRN muscle pain 11/02/24 ertapenem 1 gram solution for injection 1 g IV Q24 5 days #5 ea 11/06/24 Hospital Course Summary of Care Provided Minutes Spent on Discharge: 32 Hospital Course: MANDY RIVERA, is a 34-year-old female history of cerebral palsy, PEG tube, straight cath twice daily, vent dependent, nonverbal, diabetes, back rods, seizure disorder presented [facility] ED 11/02/2024 with concerns for lumps in lower back. There was a concern by mom because she had run her back so she was brought in, x-ray with no acute abnormality but patient was found to have a UTI so she was admitted as she has history of ESBL UTIs with need for IV antibiotics. Patient did grow an ESBL UTI and ID evaluated and came up with antibiotic plan for outpatient. Discussed patient's back and mom's concern about patient's spine having curve so much from when the angelo was initially placed, discussed Ortho evaluation and ultimate goals, patient's mother would want to avoid surgery if possible given patient presently comfortable is felt reasonable to provide supportive care and forego inpatient Ortho evaluation which patient's mother also felt was reasonable and is agreeable to Physical Exam Narrative General: Patient laying in bed in no acute distress HEENT: Baseline changes Eyes: Spontaneous eye opening Neck: Supple Respiratory: Chronically ventilated Cardiovascular: Regular rate GI: nondistended Extremities: Has some chronic changes moving upper extremities in bed Neuro: Baseline changes Psych: Unable to cooperate given mental status Weight / BMI Weight Weight: 47.9 kg Body Mass Index (BMI) 25.0 ABG / Lab / Microbiology Data 11/06/24 03:45 11/06/24 03:45 Laboratory: Laboratory Results - last 24 hr 11/05/24 22:55: POC Glucose 88 11/06/24 03:45: WBC 5.9, RBC 3.18 L, Hgb 10.3 L, Hct 30.1 L, MCV 94.7, MCH 32.4 H, MCHC 34.2, RDW Std Deviation 42.2, RDW Coeff of Anne 12.1, Plt Count 208, MPV 10.6, Sodium 133 L, Potassium 3.9, Chloride 101, Carbon Dioxide 24.0, Anion Gap 8, BUN 7, Creatinine 0.17 L, Est GFR (MDRD) Af Amer 624, Est GFR (MDRD) Non-Af 516, BUN/Creatinine Ratio 40.9 H, Glucose 95, Calcium 9.6 11/06/24 07:54: POC Glucose 95 11/06/24 11:02: POC Glucose 141 H 11/06/24 14:11: POC Glucose 123 H 11/06/24 16:52: POC Glucose 108 H Microbiology: Microbiology 11/02/24 18:30 Blood Culture (Wb) - Left Hand Blood Culture - Preliminary No growth in 48 hours. 11/02/24 16:50 Blood Culture (Wb) - Left Hand Blood Culture - Preliminary No growth in 48 hours. 11/02/24 16:10 Urine, Catheterized Urine Culture - Final ESBL Escherichia coli 11/02/24 21:25 Mucosa - Nasopharyngeal Respiratory Panel (PCR) - Final 11/02/24 14:42 Mucosa - Nose SARS-CoV-2, Influenza & RSV (PCR) - Final D/C Instructions Discharge Diet: - (Resume home regimen) DC O2, CPAP, BIPAP Needs Home O2 Discharge instructions: Yes Type of respiratory needs?: Oxygen Oxygen frequency: Other Other oxygen liters per minute: Continue ventilator Other oxygen frequency: Continue ventilator DC home with Oxygen: No Meaningful Use Info Meaningful Use Meaningful Use Diagnoses (Choose all that apply): None applicable Ischemic Stroke Statin Dosing Therapy Reference: STATIN DOSE THERAPY REFERENCE: * Patients > 75 years receive moderate or high dose statin therapy. * Patients 75 years or YOUNGER should receive HIGH intensity statin dose unless contraindicated. You will be required to document reason for non-treatment if statin daily dose does not meet guidelines. HIGH DOSE STATIN THERAPY DAILY Atorvastatin > than or = to 40 mg Rosuvastatin > than or = to 20 mg Amlodipine + Atorvastatin > than or = to 2.5/40 mg Ezetimibe + Simvastatin 10/80 mg Simvastatin 80mg Discharge Plan Admission Admit Date/Time: 11/02/24 18:47 Primary Reason for Your Visit: back pain Attending Provider: Shanice Ray Primary Care Provider: Sandra Bermudez Consulting Providers: Rafa Bettencourt; Shanice Ray; Casey Mcgrath; Gamal Rodas Instructions Patient Instructions: ED Cystitis Female Adult Additional Instructions / Restrictions: DISCHARGE INSTRUCTIONS PLEASE READ *Please take this with you to your next doctors appointment* -You will be set up for ertapenem on discharge -Please call your primary care provider's office upon discharge to schedule a hospital follow up within 1 week. -For any concerning signs or symptoms please call 911 or proceed to the nearest emergency department Discharge Orders/Prescriptions Prescriptions: New ertapenem 1 gram Recon Soln 1 g IV Q24 5 Days Qty: 5 0RF Rx Instructions: Dx: ESBL infection Continued oxcarbazepine [Trileptal] 300 mg/5 mL (60 mg/mL) suspension 8 ml GT BID insulin glargine [Basaglar KwikPen U-100 Insulin] 100 unit/mL (3 mL) insulin pen 20 unit subcut QPM Qty: 15 2RF insulin aspart U-100 [Novolog FlexPen U-100 Insulin] 100 unit/mL (3 mL) insulin pen 18 unit subcut TID Qty: 33 3RF Rx Instructions: 160 +3, 201 +5, 241 +8, 280 +10 This is sliding scale, caregiver understands how to administer. (DME) True Metrix Glucose Test Strip Strip See Rx Instructions .Route Qty: 150 12RF Rx Instructions: 5 times per day with tube feedings baclofen 20 MG tablet 30 mg GT TID Patient Comments: pain ferrous sulfate 15 mg iron (75 mg)/mL syringe 5 ml feeding tube MOTH Rx Instructions: TWICE WEEKLY ON WEDNESDAY AND WEDNESDAY diazepam 5 mg/5 mL (1 mg/mL) Solution 7 mg feeding tube BID diazepam 5 mg/5 mL (1 mg/mL) Solution 5 mg feeding tube DAILY@1400 miconazole nitrate [Monistat 7] 2 % Cream 1 appful VAGINAL DAILY PRN (Reason: YEAST) ibuprofen 100 mg/5 mL Suspension 400 mg PO Q6H PRN (Reason: Pain) sodium chloride 0.9 % Solution For Nebulization 3 - 6 ml INHALATION Q2H PRN (Reason: Congestion) ascorbic acid (vitamin C) 500 mg/5 mL Syrup 500 mg feeding tube BID cholecalciferol (vitamin D3) 50 mcg (2,000 unit) Capsule 50 mcg feeding tube DAILY naphazoline 0.012 % Drops 2 drp OPHTHALMIC (EYE) DAILY PRN (Reason: allergies) acetaminophen 160 mg/5 mL Liquid 640 mg PO Q4H PRN (Reason: pain/fever) magnesium hydroxide [Milk of Magnesia] 400 mg/5 mL Suspension 15 - 60 ml PO DAILY PRN (Reason: Constipation) Debrox 6.5 % Drops 5 drp EACH EAR DAILY PRN (Reason: Ear Wax) nystatin 100,000 unit/gram Powder 1 applic TOPICAL BID PRN (Reason: redness) acidophilus-pectin, citrus 25 million cell -100 mg tablet 1 tab G-tube DAILY Rx Instructions: Neyu-miv-mvohcev nutritional supplements Powder 1 ea PO BID Rx Instructions: GIVEN VIIA G-TUBE BID docusate sodium 60 mg/15 mL Syrup 60 mg feeding tube DAILY meropenem 1 gram Recon Soln 1 g IV Q8 7 Days Qty: 21 0RF Rx Instructions: dx: esbl infection weekly bmp, cbc, and LFT while on iv abx. Fax to [phone] hydrocortisone [Ala-Brown] 1 % cream 1 applic topical 4X/DAY PRN (Reason: itching) bacitracin 500 unit/gram ointment 1 applic topical 4X/DAY PRN (Reason: ABRASIONS) methenamine hippurate 1 gram tablet 1 g PO BID Manuka Honey 80 % gel 1 applic topical BID PRN (Reason: wound healing) potassium chloride 20 mEq/15 mL liquid 10 meq PO DAILY Centrum 9 mg iron/ 15 mL (15 mL) liquid 5 ml PO DAILY guaifenesin 100 mg/5 mL liquid 200 mg GT Q4H PRN (Reason: thick secretions) trolamine salicylate [Alcis] 10 % cream 1 applic topical 4X/DAY PRN (Reason: muscle pain) phenazopyridine 200 mg tablet 200 mg feeding tube TID PRN (Reason: pain) Patient Comments: [NO ORIGINAL SIG] GenTeal Tears Severe Gel 0.3 % gel 1 drp EACH EYE BID PRN (Reason: dry eyes) sodium chloride 0.9 % aerosol,spray 1 applic topical PRN Rx Instructions: INSTILL 30 DROPS OR 1ML EVERY HOUR NEEDED INTO TRACH TO THIN SECRETIONS levalbuterol HCl 1.25 mg/3 mL solution for nebulization 1.25 mg INHALATION BID Qty: 90 5RF (DME) True Metrix Pro Test Strip Strip See Rx Instructions .ROUTE .MEDSUPPLY Qty: 400 3RF Rx Instructions: 4 times daily, plus extra for mental status change cetirizine 5 mg/5 mL solution 10 mg PO DAILY Qty: 300 11RF (DME) lancets [Embrace Lancets] 30 gauge misc See Rx Instructions .Route Qty: 200 8RF Rx Instructions: 4x/day fluticasone propionate [Flovent HFA] 44 mcg/actuation HFA aerosol inhaler 2 puff INHALATION BID Qty: 10.6 11RF Rx Instructions: administer with spacer levalbuterol HCl 1.25 mg/3 mL solution for nebulization 1.25 mg INHALATION Q4H PRN (Reason: sob) Qty: 150 11RF (DME) pen needle, diabetic [BD Ultra-Fine Priyanka Pen Needle] 32 gauge x 5/32 needle See Rx Instructions .ROUTE .MEDSUPPLY Qty: 360 3RF Rx Instructions: 5 times daily Referrals / Follow Up: Sandra Bermudez DO [Primary Care Provider] - In 1 Week Disposition Disposition (needs filled in before D/C Order can be placed): Home Health Service Charges/Coding Visit Charges Inpatient E&M: 94033 Disch Hosp >30min
--- NOTE | 2024-11-06 16:15 | PHA.DC.MR.R ---
Pharmacy [place] Med Reconciliation Pharmacy Service has performed discharge medication reconciliation for this patient. The patient's discharge medication list was reviewed for discrepancies and discrepancies were resolved. Medications at Discharge Home Medications baclofen 20 mg tablet 30 mg G-tube TID muscle spasms 09/02/13 oxcarbazepine 300 mg/5 mL (60 mg/mL) oral suspension (Trileptal) 8 ml G-tube BID seizure 08/28/17 diazepam 5 mg/5 mL (1 mg/mL) oral solution 5 mg feeding tube DAILY@1400 spasms 05/20/21 diazepam 5 mg/5 mL (1 mg/mL) oral solution 7 mg feeding tube BID spasms 05/20/21 ascorbic acid (vitamin C) 500 mg/5 mL oral syrup 500 mg feeding tube BID SUPPLEMENT 12/12/21 cholecalciferol (vitamin D3) 50 mcg (2,000 unit) capsule 50 mcg feeding tube DAILY SUPPLEMENT 12/12/21 ibuprofen 100 mg/5 mL oral suspension 400 mg PO Q6H PRN Pain 12/12/21 miconazole nitrate 2 % vaginal cream (Monistat 7) 1 appful vaginal DAILY PRN YEAST 12/12/21 sodium chloride 0.9 % for nebulization 3 - 6 ml inhalation Q2H PRN Congestion 12/12/21 levalbuterol HCl 1.25 mg/3 mL solution for nebulization 1.25 mg (3 mL) inhalation BID BREATHING #90 mL 01/16/22 naphazoline 0.012 % eye drops 2 drp ophthalmic (eye) DAILY PRN allergies 02/24/22 acetaminophen 160 mg/5 mL oral liquid 640 mg PO Q4H PRN pain/fever 03/31/22 acidophilus 25 million cell-pectin, citrus 100 mg tablet 1 tab G-tube DAILY supplement 03/31/22 carbamide peroxide 6.5 % ear drops (Debrox) 5 drp EACH EAR DAILY PRN Ear Wax 03/31/22 magnesium hydroxide 400 mg/5 mL oral suspension (Milk of Magnesia) 15 - 60 ml PO DAILY PRN Constipation 03/31/22 nystatin 100,000 unit/gram topical powder 1 applic topical BID PRN redness 03/31/22 ferrous sulfate 15 mg iron (75 mg)/mL oral syringe (ORAL USE) 5 ml feeding tube MOTH supplement 08/24/22 docusate sodium 60 mg/15 mL oral syrup 60 mg feeding tube DAILY Check with primary doctor 08/29/22 nutritional supplements 1 ea PO BID Check with primary doctor 08/29/22 meropenem 1 gram intravenous solution 1 g IV Q8 7 days #21 ea 09/03/22 blood sugar diagnostic (True Metrix Pro Test Strip) #400 ea 02/23/23 cetirizine 5 mg/5 mL oral solution 10 mg (10 mL) PO DAILY allergy symptoms #300 mL 03/18/23 lancets 30 gauge (Embrace Lancets) #200 ea 11/11/23 fluticasone propionate 44 mcg/actuation HFA aerosol inhaler (Flovent HFA) 2 puff inhalation BID Check with primary doctor #10.6 grams 05/23/24 levalbuterol HCl 1.25 mg/3 mL solution for nebulization 1.25 mg (3 mL) inhalation Q4H PRN sob #150 mL 05/23/24 pen needle, diabetic 32 gauge x 5/32 (BD Ultra-Fine Priyanka Pen Needle) #360 ea 07/24/24 Novolog FlexPen U-100 Insulin 100 unit/mL (3 mL) subcutaneous (insulin aspart U-100) 18 unit (0.18 mL) subcut TID #33 mL 10/24/24 blood sugar diagnostic (True Metrix Glucose Test Strip) #150 ea 10/24/24 insulin glargine 100 unit/mL (3 mL) subcutaneous pen (Basaglar KwikPen U-100 Insulin) 20 unit (0.2 mL) subcut QPM #15 mL 10/24/24 artificial tears(hypromellose) 0.3 % eye gel (GenTeal Tears Severe) 1 drp EACH EYE BID PRN dry eyes 11/02/24 bacitracin 500 unit/gram topical ointment 1 applic topical 4X/DAY PRN ABRASIONS 11/02/24 guaifenesin 100 mg/5 mL oral liquid 200 mg G-tube Q4H PRN thick secretions 11/02/24 honey 80 % topical gel (Manuka Honey) 1 applic topical BID PRN wound healing 11/02/24 hydrocortisone 1 % topical cream (Ala-Brown) 1 applic topical 4X/DAY PRN itching 11/02/24 methenamine hippurate 1 gram tablet 1 g PO BID 11/02/24 nxsrilvf-fsyd-yxddlsi gluconate 9 mg iron/15 mL (15 mL) oral liquid (Centrum) 5 ml PO DAILY 11/02/24 phenazopyridine 200 mg tablet 200 mg feeding tube TID PRN pain 11/02/24 potassium chloride 20 mEq/15 mL oral liquid 10 meq PO DAILY 11/02/24 sodium chloride 0.9 % topical spray 1 applic topical PRN 11/02/24 trolamine salicylate 10 % topical cream (Alcis) 1 applic topical 4X/DAY PRN muscle pain 11/02/24 ertapenem 1 gram solution for injection 1 g IV Q24 5 days #5 ea 11/06/24
[2024-11-06 17:17] LABS: Bedside Glucose 108 mg/dL (74-106)
[2024-11-06] MEDS: Albuterol 2.5 MG/3 ML VIAL.NEB. INHALATION (19:43)
== END 2024-11-06 21:15 | disposition home health service (06) | DRG 699 ==
LOC: ED 18:58 → PCU 19:04
PROVIDERS: Hospitalist; Admitting Provider Internal Medicine; Emergency Provider Emergency Medicine; PCP Internal Medicine; Visit Provider Internal Medicine
DX: T83.518A Infection and inflammatory reaction due to other urinary catheter, initial encounter (principal); N39.0 Urinary tract infection, site not specified; Z99.11 Dependence on respirator [ventilator] status; R47.01 Aphasia; J96.11 Chronic respiratory failure with hypoxia; E87.1 Hypo-osmolality and hyponatremia; Z93.0 Tracheostomy status; E11.65 Type 2 diabetes mellitus with hyperglycemia; B96.20 Unspecified Escherichia coli [E. coli] as the cause of diseases classified elsewhere; Z66 Do not resuscitate; G40.909 Epilepsy, unspecified, not intractable, without status epilepticus; G80.9 Cerebral palsy, unspecified; Z93.1 Gastrostomy status; Z79.4 Long term (current) use of insulin; M54.9 Dorsalgia, unspecified; Z79.51 Long term (current) use of inhaled steroids; Z79.1 Long term (current) use of non-steroidal anti-inflammatories (NSAID); Z87.442 Personal history of urinary calculi; Z97.8 Presence of other specified devices; Z98.1 Arthrodesis status; Z98.890 Other specified postprocedural states; Z88.1 Allergy status to other antibiotic agents; Z88.8 Allergy status to other drugs, medicaments and biological substances; Z79.899 Other long term (current) drug therapy; R22.2 Localized swelling, mass and lump, trunk
CPT/HCPCS: 36415; 71045; 72100; 80048; 80053; 81001; 82962; 83605; 85025; 85027; 87040; 87086; 87088; 87186; 87631; 87633; 94640; 97802; 99285; J2185; A4216; J2405

== ENCOUNTER → 2025-01-31 | Outpatient (CLI) | payer MEDICARE, MEDICAID, SELFPAY ==
[2025-01-31 12:19] LABS: Potassium 3.7 mmol/L (3.3-5.1); Vitamin D,25 Hydroxy 75.4 ng/mL (30-100)
== END | disposition home or self-care (01) ==
LOC: LAB 08:14
PROVIDERS: PCP Internal Medicine; Visit Provider Internal Medicine
DX: L02.91 Cutaneous abscess, unspecified (principal); E55.9 Vitamin D deficiency, unspecified; E87.6 Hypokalemia
CPT/HCPCS: 36415; 82306; 84132

== ENCOUNTER → 2025-02-02 | Outpatient (CLI) | payer MEDICARE, MEDICAID, SELFPAY | END | disposition home or self-care (01) | PROVIDERS: PCP Internal Medicine; Referring Provider Internal Medicine; Visit Provider Internal Medicine | DX: L02.91 Cutaneous abscess, unspecified (principal) | CPT/HCPCS: 87070; 87077; 87186; 87205 ==

== ENCOUNTER 2025-04-29 19:37 | Inpatient (IN) | payer MEDICARE, MEDICAID, SELFPAY ==
[2025-04-29 19:39] VITALS: BP 140/90; PULSE 108; RESP 21; TEMP 36.9; O2SAT 97; BMI 36.8
[2025-04-29 19:43] VITALS: BP 135/87; PULSE 112; RESP 24; TEMP 36.9; O2SAT 96
[2025-04-29 19:57] VITALS: BMI 36.8
[2025-04-29 20:56] VITALS: BP 123/86; PULSE 107; RESP 20; TEMP 36.8; O2SAT 98
[2025-04-29 21:00] VITALS: BP 125/87; PULSE 99; RESP 21; TEMP 37; O2SAT 98
--- NOTE | 2025-04-29 21:06 | CT_ITS ---
PROCEDURE: CT CHEST, ABD, PELVIS WO CONT 04/30/2025 REASON FOR EXAM: COUGH, DYSURIA, HX KIDNEY STONES TECHNIQUE: Chest, abdomen and pelvis CT without intravenous contrast. Coronal and Sagittal reconstruction series were provided. One or more dose reduction techniques were used (e.g., Automated exposure control, adjustment of the mA and/or kV according to patient size, use of iterative reconstruction technique. RADIATION DOSE SUMMARY: CTDlvol: 12.12 mGy DLP: 1010 mGycm COMPARISON: CT scan on 11/09/2023. FINDINGS: Increased bilateral basilar airspace disease/consolidations of the lower lobes, possibly multifocal pneumonia. Midline tracheostomy tube is in good position. Unremarkable spinal metallic hardware. Bilateral nonobstructing renal stones with the largest measuring 8 mm on the right side. Percutaneous gastrostomy tube is in good position. Moderate gastroparesis. Right ovarian cyst measuring 4.7 cm in the interim. Two nonobstructing stones are noted layering in the posterior/dependent aspect of the bladder in the interim with the largest measuring 5 mm. Diffuse thickening of the left lateral wall of the bladder. Fluid-filled colon, possibly secondary to ileus/enteritis. Suspected gallstones. Dilated common bile duct. Suspected radiolucent stone in the distal aspect of the common bile duct. Normal unenhanced main pulmonary artery and right and left pulmonary arteries. Normal bilateral peripheral pulmonary arteries. Normal thoracic aorta and visualized great vessels. There is no demonstrated aortic aneurysm. Normal heart and pericardium. Normal mediastinum. Normal hilar regions. Normal visualized trachea and bronchi. Normal pleura. Normal unenhanced spleen. Normal pancreas. Normal bilateral adrenal glands. Normal size of the right kidney. There is no right renal mass. There is no right hydronephrosis. Normal visualized right ureter. Normal size of the left kidney. There is no left renal mass. There is no left hydronephrosis. Normal visualized left ureter. Normal small intestine. The appendix is visualized and appears normal. There is no demonstrated peritoneal fluid. Normal abdominal aorta. Normal inferior vena cava. Normal retroperitoneum. There is no pelvic lymphadenopathy. There is no pelvic fluid. CT/CT Chest, Abd, Pelvis WO Cont IMPRESSION: Increased bilateral basilar airspace disease/consolidations of the lower lobes, possibly multifocal pneumonia. Midline tracheostomy tube is in good position. Unremarkable spinal metallic hardware. Bilateral nonobstructing renal stones with the largest measuring 8 mm on the ri ght side. Percutaneous gastrostomy tube is in good position. Moderate gastroparesis. Right ovarian cyst measuring 4.7 cm in the interim. Two nonobstructing stones are noted layering in the posterior/dependent aspect of the bladder in the interim with the largest measuring 5 mm. Diffuse thickening of the left lateral wall of the bladder. Fluid-filled colon, possibly secondary to ileus/enteritis. Suspected gallstones. Dilated common bile duct. Suspected radiolucent stone in the distal aspect of the common bile duct. Reading [facility]
--- NOTE | 2025-04-29 21:06 | EKG12_ITS ---
Test Reason : FEVER Blood Pressure : */* mmHG Vent. Rate : 96 BPM Atrial Rate : 96 BPM P-R Int : 140 ms QRS Dur : 84 ms QT Int : 334 ms P-R-T Axes : 14 2 56 degrees QTcB Int : 421 ms Normal sinus rhythm Possible Left atrial enlargement Nonspecific T wave abnormality Abnormal ECG Confirmed by KAITLIN LEIJA, FROYLAN ([id number]), offline editor KRYSTYNA ANDERSON ([id number]) on 05/01/2025 6:12:59 AM Referred By: Confirmed By: FROYLAN MADRIGAL MD
--- NOTE | 2025-04-29 21:09 | EX.ED.DYSGE1 ---
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 Yesterday started having a fever reporting increasing secretions. Also reports dysuria. Mother reports that Twice a day allow her wearing depends. No vomiting mother is noted more loose stools in the last week. Tmax 102.5 forehead yesterday. Tmax 100 today status post Tylenol at 3 PM. She has had urinary tract infections with ESBL in the past. She had previous C. difficile. Mother reports history of kidney stones requiring removal by Dr. nAaya. No ureteral stents per mother. Prior similar symptoms: Yes PFSH PFSH Medical History ESBL (extended spectrum beta-lactamase) producing bacteria infection On tube feeding diet History of Clostridium difficile infection MRSA infection Redness of skin Bladder disease History of renal disease Seizures Dietary restriction On home oxygen therapy Non-smoker Renal calculi Skin tag of vaginal mucosa Renal calculus or stone PICC (peripherally inserted central catheter) in place Bedbound Pancreatitis Kidney stones Ventilator dependent Urinary tract infection due to extended-spectrum beta lactamase (ESBL) producing Escherichia coli Recurrent UTI Staghorn renal calculus Diabetes Chronic respiratory failure Allergic rhinitis due to other allergen Paraplegia Visual disturbance Amenorrhea Neuromuscular scoliosis Hyperglycemia Vitamin D deficiency Respiratory acidosis Thrush Lactic acid acidosis Bronchitis Irregular menstrual cycle 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 Bronchiectasis without acute exacerbation Severe sepsis Seizure Cerebral palsy Pneumonia Home Medications ?Medication ?Instructions ?Recorded ?Last Taken ?Type baclofen 20 mg tablet 30 mg G-tube TID muscle spasms 09/02/13 11/02/24 20:30 History oxcarbazepine 300 mg/5 mL (60 8 ml G-tube BID seizure 08/28/17 11/02/24 20:30 History mg/mL) oral suspension (Trileptal) diazepam 5 mg/5 mL (1 mg/mL) oral 5 mg feeding tube DAILY@1400 spasms 05/20/21 11/02/24 14:00 History solution diazepam 5 mg/5 mL (1 mg/mL) oral 7 mg feeding tube BID spasms 05/20/21 11/02/24 20:30 History solution ascorbic acid (vitamin C) 500 mg/5 500 mg feeding tube BID SUPPLEMENT 12/12/21 11/02/24 History mL oral syrup cholecalciferol (vitamin D3) 50 50 mcg feeding tube DAILY 12/12/21 11/02/24 History mcg (2,000 unit) capsule SUPPLEMENT ibuprofen 100 mg/5 mL oral 400 mg PO Q6H PRN Pain 12/12/21 02/24/22 History suspension miconazole nitrate 2 % vaginal 1 appful vaginal DAILY PRN YEAST 12/12/21 1 Week Ago History cream (Monistat 7) ~02/17/22 sodium chloride 0.9 % for 3 - 6 ml inhalation Q2H PRN 12/12/21 02/23/22 History nebulization Congestion levalbuterol HCl 1.25 mg/3 mL 1.25 mg (3 mL) inhalation BID 01/16/22 11/02/24 Rx solution for nebulization BREATHING #90 mL naphazoline 0.012 % eye drops 2 drp ophthalmic (eye) DAILY PRN 02/24/22 02/23/22 History allergies acetaminophen 160 mg/5 mL oral 640 mg PO Q4H PRN pain/fever 03/31/22 Unknown History liquid acidophilus 25 million 1 tab G-tube DAILY supplement 03/31/22 11/02/24 History cell-pectin, citrus 100 mg tablet carbamide peroxide 6.5 % ear drops 5 drp EACH EAR DAILY PRN Ear Wax 03/31/22 Unknown History (Debrox) magnesium hydroxide 400 mg/5 mL 15 - 60 ml PO DAILY PRN 03/31/22 Unknown History oral suspension (Milk of Magnesia) Constipation nystatin 100,000 unit/gram topical 1 applic topical BID PRN redness 03/31/22 Unknown History powder ferrous sulfate 15 mg iron (75 5 ml feeding tube MOTH supplement 08/24/22 11/02/24 History mg)/mL oral syringe (ORAL USE) docusate sodium 60 mg/15 mL oral 60 mg feeding tube DAILY Check 08/29/22 Unknown History syrup with primary doctor nutritional supplements 1 ea PO BID Check with primary 08/29/22 Unknown History doctor meropenem 1 gram intravenous 1 g IV Q8 7 days #21 ea 09/03/22 11/02/24 Rx solution blood sugar diagnostic (True #400 ea 02/23/23 Unknown Rx Metrix Pro Test Strip) cetirizine 5 mg/5 mL oral solution 10 mg (10 mL) PO DAILY allergy 03/18/23 11/02/24 Rx symptoms #300 mL fluticasone propionate 44 2 puff inhalation BID Check with 05/23/24 11/02/24 Rx mcg/actuation HFA aerosol inhaler primary doctor #10.6 grams (Flovent HFA) levalbuterol HCl 1.25 mg/3 mL 1.25 mg (3 mL) inhalation Q4H PRN 05/23/24 Unknown Rx solution for nebulization sob #150 mL insulin glargine 100 unit/mL (3 20 unit (0.2 mL) subcut QPM #15 mL 10/24/24 11/01/24 Rx mL) subcutaneous pen (Basaglar KwikPen U-100 Insulin) artificial tears(hypromellose) 0.3 1 drp EACH EYE BID PRN dry eyes 11/02/24 Unknown History % eye gel (GenTeal Tears Severe) bacitracin 500 unit/gram topical 1 applic topical 4X/DAY PRN 11/02/24 Unknown History ointment ABRASIONS guaifenesin 100 mg/5 mL oral liquid 200 mg G-tube Q4H PRN thick 11/02/24 Unknown History secretions honey 80 % topical gel ([place] 1 applic topical BID PRN wound 11/02/24 Unknown History Honey) healing hydrocortisone 1 % topical cream 1 applic topical 4X/DAY PRN itching 11/02/24 Unknown History (Ala-Brown) methenamine hippurate 1 gram tablet 1 g PO BID 11/02/24 11/02/24 History fsmmyqlc-bhzi-[id number] gluconate 9 5 ml PO DAILY 11/02/24 11/02/24 History mg iron/15 mL (15 mL) oral liquid (Centrum) phenazopyridine 200 mg tablet 200 mg feeding tube TID PRN pain 11/02/24 Unknown History potassium chloride 20 mEq/15 mL 10 meq PO DAILY 11/02/24 11/02/24 History oral liquid sodium chloride 0.9 % topical spray 1 applic topical PRN 11/02/24 Unknown History trolamine salicylate 10 % topical 1 applic topical 4X/DAY PRN muscle 11/02/24 Unknown History cream (Alcis) pain ertapenem 1 gram solution for 1 g IV Q24 5 days #5 ea 11/06/24 Unknown Rx injection Novolog FlexPen U-100 Insulin 100 18 unit (0.18 mL) subcut .qid 90 01/29/25 Unknown Rx unit/mL (3 mL) subcutaneous days #33 mL (insulin aspart U-100) pen needle, diabetic 32 gauge x #360 ea 01/29/25 Unknown Rx lancets 30 gauge (Embrace Lancets) #200 ea 02/21/25 Unknown Rx blood sugar diagnostic (True #150 ea 04/03/25 Unknown Rx Metrix Glucose Test Strip) lancets 33 gauge (OneTouch Delica #200 ea 04/17/25 Unknown Rx Plus Lancet) lancing device with lancets kit #1 ea 04/17/25 Unknown Rx (OneTouch Delica Plus Lancing Device kit) Allergy/AdvReac Type Severity Reaction Status Date / Time linezolid Allergy Severe Other - Verified 04/29/25 19:53 seizure & coma vancomycin Allergy Severe Other - Verified 04/29/25 19:53 kidney failure tobramycin Allergy Intermediate Other - Verified 04/29/25 19:53 turned beet red nafcillin Allergy Mild Rash Verified 04/29/25 19:53 benzoin Allergy Unknown Rash Verified 04/29/25 19:53 milk Allergy Unknown Other Verified 04/29/25 19:53 soy Allergy Unknown Other Verified 04/29/25 19:53 polyethylene glycol 3350 AdvReac Unknown Hives Verified 04/29/25 19:53 (From Miralax) Family History Grandmother Cancer maternal Other Adopted Surgical History Presence of intrathecal baclofen pump Gastrostomy tube in place Status post Jorje fundoplication H/O spinal fusion rods to back surgery on gland under tongue eyes straightened derotatox ostomies tendonatomies Tracheostomy status Social History household members: other details: Mother and is vent dependent housing: house Smoking Status: Never smoker second hand exposure: No alcohol intake: never substance use type: does not use ROS ROS ED Review of Systems ROS Unobtainable: other Details: Nonverbal history from mother Constitutional Constitutional ED: Reports fever(s) Respiratory/Chest Respiratory/Chest: Reports cough Gastrointestinal Gastrointestinal: Reports diarrhea Genitourinary Genitourinary ED: Reports dysuria EXAM Physical Exam Const Vital Signs: 04/29/25 19:39 04/29/25 19:43 04/29/25 20:56 Temperature 98.4 F 98.4 F 98.3 F Temperature Source Axillary Axillary Axillary Pulse Rate 108 H 112 H 107 H Respiratory Rate 21 H 24 H 20 H Blood Pressure 140/90 H 135/87 H 123/86 H Blood Pressure Mean 106 103 98 Pulse Ox 97 96 98 Oxygen Delivery Method Trach Collar Trach Collar Trach Collar 04/29/25 21:00 04/29/25 21:06 04/29/25 22:00 Temperature 98.6 F 98.2 F Temperature Source Axillary Oral Pulse Rate 99 101 H Respiratory Rate 21 H 20 H Blood Pressure 125/87 H 111/74 Blood Pressure Mean 99 86 Pulse Ox 98 97 Oxygen Delivery Method Trach Collar Trach Collar Trach Collar 04/29/25 23:00 04/29/25 23:00 04/30/25 00:00 Temperature 99 F Temperature Source Axillary Pulse Rate 110 H 111 H 102 H Respiratory Rate 19 H 20 H 19 H Blood Pressure 123/91 H 123/90 H 142/98 H Blood Pressure Mean 101 101 112 Pulse Ox 98 96 100 Oxygen Delivery Method Trach Collar Trach Collar Trach Collar 04/30/25 01:00 Temperature Temperature Source Pulse Rate 105 H Respiratory Rate 21 H Blood Pressure 142/98 H Blood Pressure Mean 112 Pulse Ox 100 Oxygen Delivery Method Trach Collar Constitutional Narrative: Nonverbal laying in bed HEENT Reports moist mucous membranes Neck Neck Narrative: Tracheostomy hooked up to a portable vent Resp Resp Narrative: Bilateral breath sounds Cardio regular rate GI non-tender and non-distended Neuro Neuro Narrative: Nonverbal MDM MDM MDM Narrative Medical decision making narrative: Interventions / MDM: Differential diagnosis: UTI, history of ESBL, pneumonia, vent dependent, ileus, gallstones, Diagnosis considered but do not suspect: Obstructive kidney stones however CT negative. My EKG interpretation: Sinus rate of 96, no ST changes. Isolated T wave version V2 nonspecific. Imaging independently reviewed and interpreted by myself: CT chest abdomen pelvis: Interval showed findings, gallstones possible lucency with stone in common bile duct, ileus External documents reviewed: N/A Test considered but not ordered:N/A ED course: Fever since yesterday afebrile currently status post Tylenol 6 hours ago. Heart rate slightly tachycardic. Respiratory rate 21 arrival. Sepsis labs ordered will cath for urine. Will obtain noncontrast CT chest abdomen pelvis for her cough along with history of kidney stones. Gentle fluids started. 0100: Interim urine to return for positive for infection urine culture pending. With the ESBL she was started on meropenem. Workup with labs white count 11.9. Lactic acid 1.7. Renal function 0.36. Liver enzymes normal. CT scan results infiltrative findings gallstones with mild dilated common bile duct with possible stone in the duct. Normal liver enzymes added lipase. Discussed with hospitalist Dr. Carranza, will add Flagyl due to pneumonia for additional anaerobic coverage. Will admit to ICU for further management. Re-evaluation: stable Disposition discussed with patient/family/significant other: Parents Case discussed with consulting clinician: Hospitalist This note was generated with [employer] dictation software. It may contain incorrect words, spelling, and punctuation that were not noted in checking the note before signing. Lab Data Attestation: I reviewed the patient's lab results. Labs: Laboratory Results - last 24 hr 04/29/25 04/29/25 04/29/25 21:20 21:35 22:03 WBC 11.9 H RBC 3.70 L Hgb 12.0 Hct 34.3 L MCV 92.7 MCH 32.4 H MCHC 35.0 RDW Std Deviation 42.4 RDW Coeff of Anne 12.4 Plt Count 182 MPV 10.4 Immature Gran % (Auto) 0.800 Neut % (Auto) 76.9 H Lymph % (Auto) 10.1 L [place] % (Auto) 11.4 H Eos % (Auto) 0.5 Baso % (Auto) 0.3 Absolute Neuts (auto) 9.2 H Absolute Lymphs (auto) 1.20 Nucleated RBC % 0 Platelet Estimate ADEQUATE RBC Morphology NORM C+C PT INR APTT Sodium 131 L Potassium 3.8 Chloride 93 L Carbon Dioxide 25.8 Anion Gap 13 BUN 8 Creatinine 0.36 L Estim Creat Clear Calc 156.67 Est GFR (MDRD) Non-Af 135 BUN/Creatinine Ratio 23.1 H Glucose 153 H Lactic Acid 1.7 Calcium 9.6 Total Bilirubin 0.26 AST 35 H ALT 27 Alkaline Phosphatase 78 Total Protein 7.3 Albumin 4.0 Globulin 3.3 Albumin/Globulin Ratio 1.2 Urine Color Straw Urine Clarity Cloudy Urine pH 7.0 Ur Specific [place] 1.010 Urine Protein 30 H Urine Glucose (UA) 250 H Urine Ketones Negative Urine Occult Blood 25 H Urine Nitrite Positive H Urine Bilirubin Negative Urine Urobilinogen Normal Ur Leukocyte Esterase 500 H Urine RBC 0-5 SEEN Urine WBC 50-100 SEEN Ur Squamous Epith Cells 0-5 SEEN Urine Bacteria 4+ Urine Mucus 0 SEEN 04/29/25 23:22 WBC RBC Hgb Hct MCV MCH MCHC RDW Std Deviation RDW Coeff of Anne Plt Count MPV Immature Gran % (Auto) Neut % (Auto) Lymph % (Auto) [place] % (Auto) Eos % (Auto) Baso % (Auto) Absolute Neuts (auto) Absolute Lymphs (auto) Nucleated RBC % Platelet Estimate RBC Morphology PT 14.6 INR 1.1 APTT 28.0 Sodium Potassium Chloride Carbon Dioxide Anion Gap BUN Creatinine Estim Creat Clear Calc Est GFR (MDRD) Non-Af BUN/Creatinine Ratio Glucose Lactic Acid Calcium Total Bilirubin AST ALT Alkaline Phosphatase Total Protein Albumin Globulin Albumin/Globulin Ratio Urine Color Urine Clarity Urine pH Ur Specific [place] Urine Protein Urine Glucose (UA) Urine Ketones Urine Occult Blood Urine Nitrite Urine Bilirubin Urine Urobilinogen Ur Leukocyte Esterase Urine RBC Urine WBC Ur Squamous Epith Cells Urine Bacteria Urine Mucus Radiography Diagnostic Testing: Clinical Impression(s) from Imaging Studies Chest/Abdomen/Pelvis CT 04/29/25 21:06 IMPRESSION: Increased bilateral basilar airspace disease/consolidations of the lower lobes, possibly multifocal pneumonia. Midline tracheostomy tube is in good position. Unremarkable spinal metallic hardware. Bilateral nonobstructing renal stones with the largest measuring 8 mm on the right side. Percutaneous gastrostomy tube is in good position. Moderate gastroparesis. Right ovarian cyst measuring 4.7 cm in the interim. Two nonobstructing stones are noted layering in the posterior/dependent aspect of the bladder in the interim with the largest measuring 5 mm. Diffuse thickening of the left lateral wall of the bladder. Fluid-filled colon, possibly secondary to ileus/enteritis. Suspected gallstones. Dilated common bile duct. Suspected radiolucent stone in the distal aspect of the common bile duct. Reading Location[facility] [address] Critical Care Time Critical Care Time: Yes Critical care time (excluding procedures): 30-74 minutes, Discussing w/Patient &/or Family/Mill Platform Supervisor, Discussing w/Consultants, Arranging Admission or Transfer, Performing Direct Patient Care at Bedside and - Discharge Plan Triage Chief Complaint: Fever ED Provider: Alessandro Austin Dx/Rx/DC Orders Clinical Impression: UTI (urinary tract infection), History of cerebral palsy, Ventilator dependence, Nonverbal, Pneumonia, Cholelithiases, Ileus, History of ESBL E. coli infection Prescriptions: No Action oxcarbazepine [Trileptal] 300 mg/5 mL (60 mg/mL) suspension 8 ml GT BID insulin glargine [Basaglar KwikPen U-100 Insulin] 100 unit/mL (3 mL) insulin pen 20 unit subcut QPM Qty: 15 2RF baclofen 20 MG tablet 30 mg GT TID Patient Comments: pain ferrous sulfate 15 mg iron (75 mg)/mL syringe 5 ml feeding tube MOTH Rx Instructions: TWICE WEEKLY ON WEDNESDAY AND WEDNESDAY diazepam 5 mg/5 mL (1 mg/mL) Solution 7 mg feeding tube BID diazepam 5 mg/5 mL (1 mg/mL) Solution 5 mg feeding tube DAILY@1400 miconazole nitrate [Monistat 7] 2 % Cream 1 appful VAGINAL DAILY PRN (Reason: YEAST) ibuprofen 100 mg/5 mL Suspension 400 mg PO Q6H PRN (Reason: Pain) sodium chloride 0.9 % Solution For Nebulization 3 - 6 ml INHALATION Q2H PRN (Reason: Congestion) ascorbic acid (vitamin C) 500 mg/5 mL Syrup 500 mg feeding tube BID cholecalciferol (vitamin D3) 50 mcg (2,000 unit) Capsule 50 mcg feeding tube DAILY naphazoline 0.012 % Drops 2 drp OPHTHALMIC (EYE) DAILY PRN (Reason: allergies) acetaminophen 160 mg/5 mL Liquid 640 mg PO Q4H PRN (Reason: pain/fever) magnesium hydroxide [Milk of Magnesia] 400 mg/5 mL Suspension 15 - 60 ml PO DAILY PRN (Reason: Constipation) Debrox 6.5 % Drops 5 drp EACH EAR DAILY PRN (Reason: Ear Wax) nystatin 100,000 unit/gram Powder 1 applic TOPICAL BID PRN (Reason: redness) acidophilus-pectin, citrus 25 million cell -100 mg tablet 1 tab G-tube DAILY Rx Instructions: [id number] nutritional supplements Powder 1 ea PO BID Rx Instructions: GIVEN VIIA G-TUBE BID docusate sodium 60 mg/15 mL Syrup 60 mg feeding tube DAILY meropenem 1 gram Recon Soln 1 g IV Q8 7 Days Qty: 21 0RF Rx Instructions: dx: esbl infection weekly bmp, cbc, and LFT while on iv abx. Fax to [phone] hydrocortisone [Ala-Brown] 1 % cream 1 applic topical 4X/DAY PRN (Reason: itching) bacitracin 500 unit/gram ointment 1 applic topical 4X/DAY PRN (Reason: ABRASIONS) methenamine hippurate 1 gram tablet 1 g PO BID Manuka Honey 80 % gel 1 applic topical BID PRN (Reason: wound healing) potassium chloride 20 mEq/15 mL liquid 10 meq PO DAILY Centrum 9 mg iron/ 15 mL (15 mL) liquid 5 ml PO DAILY guaifenesin 100 mg/5 mL liquid 200 mg GT Q4H PRN (Reason: thick secretions) trolamine salicylate [Alcis] 10 % cream 1 applic topical 4X/DAY PRN (Reason: muscle pain) phenazopyridine 200 mg tablet 200 mg feeding tube TID PRN (Reason: pain) Patient Comments: [NO ORIGINAL SIG] GenTeal Tears Severe Gel 0.3 % gel 1 drp EACH EYE BID PRN (Reason: dry eyes) sodium chloride 0.9 % aerosol,spray 1 applic topical PRN Rx Instructions: INSTILL 30 DROPS OR 1ML EVERY HOUR NEEDED INTO TRACH TO THIN SECRETIONS ertapenem 1 gram Recon Soln 1 g IV Q24 5 Days Qty: 5 0RF Rx Instructions: Dx: ESBL infection levalbuterol HCl 1.25 mg/3 mL solution for nebulization 1.25 mg INHALATION BID Qty: 90 5RF (DME) True Metrix Pro Test Strip Strip See Rx Instructions .ROUTE .MEDSUPPLY Qty: 400 3RF Rx Instructions: 4 times daily, plus extra for mental status change cetirizine 5 mg/5 mL solution 10 mg PO DAILY Qty: 300 11RF fluticasone propionate [Flovent HFA] 44 mcg/actuation HFA aerosol inhaler 2 puff INHALATION BID Qty: 10.6 11RF Rx Instructions: administer with spacer levalbuterol HCl 1.25 mg/3 mL solution for nebulization 1.25 mg INHALATION Q4H PRN (Reason: sob) Qty: 150 11RF (DME) pen needle, diabetic 32 gauge x 5/32 needle See Rx Instructions .ROUTE .MEDSUPPLY Qty: 360 3RF Rx Instructions: 5 times daily insulin aspart U-100 [Novolog FlexPen U-100 Insulin] 100 unit/mL (3 mL) insulin pen 18 unit subcut .qid 90 Days Qty: 33 3RF Rx Instructions: 160 +3, 201 +5, 241 +8, 280 +10 This is sliding scale, caregiver understands how to administer. (DME) lancets [Embrace Lancets] 30 gauge misc See Rx Instructions .Route Qty: 200 8RF Rx Instructions: 4x/day (DME) True Metrix Glucose Test Strip Strip See Rx Instructions .Route Qty: 150 12RF Rx Instructions: 5 times per day with tube feedings (DME) lancets [OneTouch Delica Plus Lancet] 33 gauge misc See Rx Instructions .Route Qty: 200 8RF Rx Instructions: 5 times daily (DME) lancing device with lancets [OneTouch Delica Plus Lanc Dev] Kit See Rx Instructions .Route Qty: 1 0RF Rx Instructions: As directed Primary Care Provider: Sandra Bermudez Referrals: Sandra Bermudez DO [Primary Care Provider] - Print Language: [place] Island[place] Disposition Disposition: Acute Care Hospital [facility]
[2025-04-29 21:41] LABS: Hematocrit 34.3 % (37-47); Hemoglobin 12.0 g/dL (12.0-15.0); Immature Granulocytes Count 0.090 X10^3/uL (0.0-0.0); Mean Corp Hgb Conc 35.0 g/dL (32-36); Mean Corpuscular Volume 92.7 fL (81-99); Mean Platelet Vol. 10.4 fl (6.2-12.0); NRBC Flagged by Analyzer 0 % (0-5); POSITIVE COUNT YES; Platelet Count 182 K/mm3 (150-450); RBC Distribution Width CV 12.4 % (11.6-14.6); RBC Distribution Width SD 42.4 fl (35.1-43.9); Red Blood Count 3.70 M/mm3 (4.2-5.4); White Blood Count 11.9 K/mm3 (4.4-11.0)
[2025-04-29 21:53] LABS: Differential Indicated SCAN CRITERIA MET
[2025-04-29 22:00] VITALS: BP 111/74; PULSE 101; RESP 20; TEMP 36.8; O2SAT 97
[2025-04-29 22:03] LABS: Red Cell Morphology NORM C+C NORMAL (NORM C&C)
[2025-04-29 22:15] LABS: AST(SGOT) 35 U/L (<=31); Alanine Aminotransfer ALT/SGPT 27 U/L (<=34); Albumin, Serum 4.0 g/dL (3.5-5.0); Alkaline Phosphatase 78 U/L (35-104); Anion Gap 13 (5-15); BUN 8 mg/dL (4-19); BUN/Creat Ratio 23.1 RATIO (10-20); Calcium,Total 9.6 mg/dL (7.6-11.0); Carbon Dioxide 25.8 mmol/L (21.0-32.0); Chloride 93 mmol/L (98-108); Estimated Creatinine Clearance 156.67 ml/min (50-250); Globulin 3.3 g/dL (2.2-4.2); Glucose 153 mg/dL (70-99); Potassium 3.8 mmol/L (3.3-5.1)
[2025-04-29 22:15] LABS: Mucous, Urine 0 SEEN /hpf (<or=2+)
[2025-04-29 22:18] LABS: Color, Urine Straw (Yellow); Glucose, Dipstick 250 mg/dl (Normal); Ketone-Dipstick Negative (Negative); Leukocyte Esterase-Dipstick 500 /ul (Negative); Nitrite-Dipstick Positive (Negative); Occult Blood-Urine 25 /ul (Negative); Protein-Dipstick 30 mg/dl (Negative); Specific Gravity, Urine 1.010 (1.002-1.030); Urine Bilirubin Dipstick Negative (Negative)
[2025-04-29 22:24] LABS: Red Blood Cells-Urine 0-5 SEEN /hpf (0-5); Squamous Epithelial Cells - UA 0-5 SEEN /hpf (5-10)
[2025-04-29 23:00] VITALS: BP 123/90; BP 123/91; PULSE 110; PULSE 111; RESP 19; RESP 20; TEMP 37.2; O2SAT 96; O2SAT 98
[2025-04-29] MEDS: 0.9% Normal Saline (500mL Bag) 500 ML 999 ML IV (23:14)
[2025-04-29] MEDS: Meropenem 1 GM in 0.9% Normal Saline (100mL MB+) 100 ML IV (23:15)
[2025-04-29 23:51] LABS: Prothrombin Time (Protime)PT. 14.6 SECONDS (11.7-14.9)
[2025-04-29 23:52] LABS: Partial Thromboplast Time 28.0 Seconds (24.1-36.2)
[2025-04-30] VITALS (33 sets, daily range): BP systolic 97–143; BP diastolic 56–100; PULSE 68–108; RESP 14–25; TEMP 36.3–37.5; O2SAT 95–100; BMI 24.3
--- NOTE | 2025-04-30 00:49 | HP.PCM.HOS_ITS ---
[facility] - General General Date of Admission: 04/30/25 Date of Service: 04/30/25 Chief Complaint: Fever and Dysuria. HPI Narrative MANDY MONTERO, is a 35 F with a past medical history of spastic hemiplegic cerebral palsy; with paraplegia and patient nonverbal at baseline, seizure disorder; on oxcarbazepine BID, history of neuromuscular sclerosis with muscle spasms; on baclofen TID and diazepam BID, history of tracheomalacia; s/p tracheostomy and PEG with patient on chronic ventilator at home, history of urinary retention; with straight cath BID and recurrent UTI's with ESBL followed by Dr. Bettencourt of infectious disease, history of Clostridium difficile infection, history of staghorn calculus; s/p lithotripsy by Dr. Anaya of urology, history of pancreatitis, DM-2; on insulin glargine 20U sq q. PM plus novolog 18U sq QID, history of pneumonia, history of bronchiectasis; on prn levalbuterol, OA; on ibuprofen q. 6 hours as needed and history of admission here from November 02, 2024 to November 06, 2024 for treatment of UTI; with ESBL treated with IV meropenem with mild Hyponatremia of 127 mmol/L and lumps in her back who presents to [facility] ER complaining of fever and dysuria. Ms. Montero is nonverbal at baseline so information was gathered from chart, medical staff, computer and the patient's mother at the bedside. According to the records the patient's mother noticed a Fever up to ~102.5 degrees Fahrenheit and in addition to dysuria and loose stools over the past week. The mother then gave her acetaminophen with her fever decreasing to 100 degrees Fahrenheit at ~15:00 hours yesterday. The mother informed the ER physician she has had similar symptoms in the past associated with her previous UTI's. In the ER she was noted to have a CT scan of the abdomen and pelvis that revealed increased basilar airspace disease/consolidations of the lower lobes due to suspected Multifocal Pneumonia in addition to suspected radiolucent stone in the distal aspect of the CBD; consistent with Choledocholithiasis with gallstones in addition to fluid-filled colon possibly secondary to ileus/enteritis and diffuse thickening of the Left lateral wall of the bladder with a corresponding UA positive for evidence of Acute Cystitis; without hematuria with Leukocytosis of 11.9K present on admission and she was then admitted to the ICU for ongoing care for a stay that is expected to extend beyond 2 midnights. [facility] Medical History (Updated 04/30/25 @ 06:[address] Kane Goldman, DO) ESBL (extended spectrum beta-lactamase) producing bacteria infection On tube feeding diet History of Clostridium difficile infection MRSA infection Redness of skin Bladder disease History of renal disease Seizures Dietary restriction On home oxygen therapy Non-smoker Renal calculi Skin tag of vaginal mucosa Renal calculus or stone PICC (peripherally inserted central catheter) in place Bedbound Pancreatitis Kidney stones Ventilator dependent Urinary tract infection due to extended-spectrum beta lactamase (ESBL) producing Escherichia coli Recurrent UTI Staghorn renal calculus Diabetes Chronic respiratory failure Allergic rhinitis due to other allergen Paraplegia Visual disturbance Amenorrhea Neuromuscular scoliosis Hyperglycemia Vitamin D deficiency Respiratory acidosis Thrush Lactic acid acidosis Bronchitis Irregular menstrual cycle 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 Bronchiectasis without acute exacerbation Severe sepsis Seizure Cerebral palsy Pneumonia Home Medications ?Medication ?Instructions ?Recorded ?Last Taken ?Type baclofen 20 mg tablet 30 mg G-tube TID muscle spas ms 09/02/13 11/02/24 20:30 History oxcarbazepine 300 mg/5 mL (60 8 ml G-tube BID seizure 08/28/17 11/02/24 20:30 History mg/mL) oral suspension (Trileptal) diazepam 5 mg/5 mL (1 mg/mL) oral 5 mg feeding tube DA JANAK@1400 spasms 05/20/21 11/02/24 14:00 History solution diazepam 5 mg/5 mL (1 mg/mL) oral 7 mg feeding tube BI D spasms 05/20/21 11/02/24 20:30 History solution ascorbic acid (vitamin C) 500 mg/5 500 mg feeding tube BID SUPPLEMENT 12/12/21 11/02/24 History mL oral syrup cholecalciferol (vitamin D3) 50 50 mcg feeding tube DA JANAK 12/12/21 11/02/24 History mcg (2,000 unit) capsule SUPPLEMENT ibuprofen 100 mg/5 mL oral 400 mg PO Q6H PRN Pain 04/0 10/0402/24/22 History suspension miconazole nitrate 2 % vaginal 1 appful vaginal DAILY PRN YEAST 12/12/21 1 Week Ago History cream (Monistat 7) ~02/17/22 sodium chloride 0.9 % for 3 - 6 ml inhalation Q2H PRN 12/12/21 02/23/22 History nebulization Congestion levalbuterol HCl 1.25 mg/3 mL 1.25 mg (3 mL) inhalatio n BID 01/16/22 11/02/24 Rx solution for nebulization BREATHING #90 mL acetaminophen 160 mg/5 mL oral 640 mg PO Q4H PRN pain/ fever 03/31/22 Unknown History liquid acidophilus 25 million 1 tab G-tube DAILY supplemen t 03/31/22 11/02/24 History cell-pectin, citrus 100 mg tablet carbamide peroxide 6.5 % ear drops 5 drp EACH EAR ZACHERY Y PRN Ear Wax 03/31/22 Unknown History (Debrox) magnesium hydroxide 400 mg/5 mL 15 - [address] N 03/31/22 Unknown History oral suspension (Milk of Magnesia) Constipation nystatin 100,000 unit/gram topical 1 applic topical BI D PRN redness 03/31/22 Unknown History powder ferrous sulfate 15 mg iron (75 5 ml feeding tube MOTH supplement 08/24/22 11/02/24 History mg)/mL oral syringe (ORAL USE) docusate sodium 60 mg/15 mL oral 60 mg feeding tube DA JANAK Check 08/29/22 Unknown History syrup with primary doctor nutritional supplements 1 ea PO BID Check with prima ry 08/29/22 Unknown History doctor meropenem 1 gram intravenous 1 g IV Q8 infection 7 day s #21 ea 09/03/22 11/02/24 Rx solution blood sugar diagnostic (True #400 ea 02/23/23 Unknown Rx Metrix Pro Test Strip) cetirizine 5 mg/5 mL oral solution 10 mg (10 mL) PO DA JANAK allergy 03/18/23 11/02/24 Rx symptoms #300 mL fluticasone propionate 44 2 puff inhalation BID Check with 05/23/24 11/02/24 Rx mcg/actuation HFA aerosol inhaler primary doctor #10.6 grams (Flovent HFA) levalbuterol HCl 1.25 mg/3 mL 1.25 mg (3 mL) inhalatio n Q4H PRN 05/23/24 Unknown Rx solution for nebulization sob #150 mL insulin glargine 100 unit/mL (3 20 unit (0.2 mL) subcu t QPM sugar 10/24/24 11/01/24 Rx mL) subcutaneous pen (Basaglar #15 mL KwikPen U-100 Insulin) artificial tears(hypromellose) 0.3 1 drp EACH EYE BID PRN dry eyes 11/02/24 Unknown History % eye gel (GenTeal Tears Severe) bacitracin 500 unit/gram topical 1 applic topical 4X/D AY PRN 11/02/24 Unknown History ointment ABRASIONS guaifenesin 100 mg/5 mL oral liquid 200 mg G-tube Q4H PRN thick 11/02/24 Unknown History secretions honey 80 % topical gel ([place]uka [address] N wound 11/02/24 Unknown History Honey) healing hydrocortisone 1 % topical cream 1 applic topical 4X/D AY PRN itching 11/02/24 Unknown History (Ala-Brown) methenamine hippurate 1 gram tablet 1 g PO BID infecti on 11/02/24 11/02/24 History bwkthomh-rycx-kchhkeu gluconate 9 5 ml PO DAILY supple ment 11/02/24 11/02/24 History mg iron/15 mL (15 mL) oral liquid (Centrum) potassium chloride 20 mEq/15 mL 10 meq PO DAILY supple ment 11/02/24 11/02/24 History oral liquid sodium chloride 0.9 % topical spray 1 applic topical P RN trach care 11/02/24 Unknown History trolamine salicylate 10 % topical 1 applic topical 4X/ DAY PRN muscle 11/02/24 Unknown History cream (Alcis) pain Novolog FlexPen U-100 Insulin 100 18 unit (0.18 mL) conklin bcut .qid 01/29/25 Unknown Rx unit/mL (3 mL) subcutaneous sugar 90 days #33 mL (insulin aspart U-100) pen needle, diabetic 32 gauge x #360 ea 01/29/25 Unkno wn Rx lancets 30 gauge (Embrace Lancets) #200 ea 02/21/25 Un known Rx blood sugar diagnostic (True #150 ea 04/03/25 Unknown Rx Metrix Glucose Test Strip) lancets 33 gauge (OneTouch Delica #200 ea 04/17/25 Unk nown Rx Plus Lancet) lancing device with lancets kit #1 ea 04/17/25 Unknown Rx (OneTouch Delica Plus Lancing Device kit) nut.tx impaired digest-fiber 14.8 ea feeding tube .qid feeding 04/30/25 Unknown History gram-472 kcal/100 gram oral powder (Neocate Rell With Prebiotics) Allergy/AdvReac Type Severity Reaction Status Date / Time linezolid Allergy Severe Other - Verified 04/29/25 19:53 seizure & coma vancomycin Allergy Severe Other - Verified 04/29/25 19:53 kidney failure tobramycin Allergy Intermediate Other - Verified 04/29/25 19:53 turned beet red nafcillin Allergy Mild Rash Verified 04/29/25 19:53 benzoin Allergy Unknown Rash Verified 04/29/25 19:53 milk Allergy Unknown Other Verified 04/29/25 19:53 soy Allergy Unknown Other Verified 04/29/25 19:53 polyethylene glycol 3350 AdvReac Unknown Hives Verified 04/29/25 19:53 (From Miralax) Family History Grandmother Cancer maternal Other Adopted Surgical History Presence of intrathecal baclofen pump Gastrostomy tube in place Status post Jorje fundoplication H/O spinal fusion rods to back surgery on gland under tongue eyes straightened derotatox ostomies tendonatomies Tracheostomy status Social History household members: other details: Mother and is vent dependent housing: house Smoking Status: Never smoker second hand exposure: No alcohol intake: never substance use type: does not use ROS ROS Narrative ROS was not possible as patient is nonverbal at baseline. Vital Signs Vital Signs Vital Signs: 04/29/25 19:39 04/29/25 19:43 04/29/25 20:56 Temperature 98.4 F 98.4 F 98.3 F Temperature Source Axillary Axillary Axillary Pulse Rate 108 H 112 H 107 H Respiratory Rate 21 H 24 H 20 H Blood Pressure 140/90 H 135/87 H 123/86 H Blood Pressure Mean 106 103 98 Pulse Ox 97 96 98 Oxygen Delivery Method Trach Collar Trach Collar Trach Collar 04/29/25 21:00 04/29/25 21:06 04/29/25 22:00 Temperature 98.6 F 98.2 F Temperature Source Axillary Oral Pulse Rate 99 101 H Respiratory Rate 21 H 20 H Blood Pressure 125/87 H 111/74 Blood Pressure Mean 99 86 Pulse Ox 98 97 Oxygen Delivery Method Trach Collar Trach Collar Trach Collar 04/29/25 23:00 04/29/25 23:00 04/30/25 00:00 Temperature 99 F Temperature Source Axillary Pulse Rate 110 H 111 H 102 H Respiratory Rate 19 H 20 H 19 H Blood Pressure 123/91 H 123/90 H 142/98 H Blood Pressure Mean 101 101 112 Pulse Ox 98 96 100 Oxygen Delivery Method Trach Collar Trach Collar Trach Collar Weight Weight: 110 lb 12.8 oz Body Mass Index (BMI) 36.8 Physical Exam Const alert Constitutional Narrative: Patient is alert, nonverbal and laying in bed with tracheostomy in place. HEENT normocephalic, head/scalp atraumatic, hearing grossly normal bilaterally and moist oral mucous membranes Eyes Eyes Narrative: Patient's eyes sweep [id number] horizontally in a rhythmic motion. Neck no lymphadenopathy and supple Resp Resp Narrative: Diminished breath sounds at both bases. Cardio regular rate and regular rhythm GI normal to inspection, nondistended, normoactive bowel sounds, soft to palpation, non-tender and non-distended GI Narrative: PEG tube in place. Extremity Extremity Narrative: Patient has wasted, atrophic extremities. Skin Skin Narrative: Patient has no evidence of wounds. Neuro Neuro Narrative: Patient has spastic hemiplegic cerebral palsy Sensorium / Orientation: awake and alert Psych affect normal Results Medical Records Data Attestation: I reviewed the patient's medical records Lab / Micro Data Attestation: I reviewed the patient's lab results. 04/30/25 03:35 04/30/25 03:35 Labs: Laboratory Results - last 24 hr 04/29/25 21:20: WBC 11.9 H, RBC 3.70 L, Hgb 12.0, Hct 34.3 L, MCV 92.7, MCH 32.4 H, MCHC 35.0, RDW Std Deviation 42.4, RDW Coeff of Anne 12.4, Plt Count 182, MPV 10.4, Immature Gran % (Auto) 0.800, Neut % (Auto) 76.9 H, Lymph % (Auto) 10.1 L, [place] % (Auto) 11.4 H, Eos % (Auto) 0.5, Baso % (Auto) 0.3, Absolute Neuts (auto) 9.2 H, Absolute Lymphs (auto) 1.20, Nucleated RBC % 0, Platelet Estimate ADEQUATE, RBC Morphology NORM C+C, Sodium 131 L, Potassium 3.8, Chloride 93 L, Carbon Dioxide 25.8, Anion Gap 13, BUN 8, Creatinine 0.36 L, Estim Creat Clear Calc 156.67, Est GFR (MDRD) Non-Af 135, BUN/Creatinine Ratio 23.1 H, Glucose 153 H, Calcium 9.6, Total Bilirubin 0.26, AST 35 H, ALT 27, Alkaline Phosphatase 78, Total Protein 7.3, Albumin 4.0, Globulin 3.3, Albumin/Globulin Ratio 1.2 04/29/25 21:35: Lactic Acid 1.7 04/29/25 22:03: Urine Color Straw, Urine Clarity Cloudy, Urine pH 7.0, Ur Specific [place] 1.010, Urine Protein 30 H, Urine Glucose (UA) 250 H, Urine Ketones Negative, Urine Occult Blood 25 H, Urine Nitrite Positive H, Urine Bilirubin Negative, Urine Urobilinogen Normal, Ur Leukocyte Esterase 500 H, Urine RBC 0-5 SEEN, Urine WBC 50-100 SEEN, Ur Squamous Epith Cells 0-5 SEEN, Urine Bacteria 4+, Urine Mucus 0 SEEN 04/29/25 23:22: PT 14.6, INR 1.1, APTT 28.0 Micro: Microbiology 04/29/25 22:03 Mucosa - Nose SARS-CoV-2, Influenza & RSV (PCR) - Final Imaging Radiology Impression Chest/Abdomen/Pelvis CT 04/29/25 21:06 IMPRESSION: Increased bilateral basilar airspace disease/consolidations of the lower lobes, possibly multifocal pneumonia. Midline tracheostomy tube is in good position. Unremarkable spinal metallic hardware. Bilateral nonobstructing renal stones with the largest measuring 8 mm on the right side. Percutaneous gastrostomy tube is in good position. Moderate gastroparesis. Right ovarian cyst measuring 4.7 cm in the interim. Two nonobstructing stones are noted layering in the posterior/dependent aspect of the bladder in the interim with the largest measuring 5 mm. Diffuse thickening of the left lateral wall of the bladder. Fluid-filled colon, possibly secondary to ileus/enteritis. Suspected gallstones. Dilated common bile duct. Suspected radiolucent stone in the distal aspect of the common bile duct. Reading Location: [place] [id number] Assessment & Plan Assessment/Plan (1) Multifocal pneumonia: (2) Choledocholithiasis: (3) Acute cystitis without hematuria: (4) History of ESBL E. coli infection: (5) Diarrhea: QUALIFIERS: Diarrhea type: presumed infectious Qualified Code(s): R19.7 - Diarrhea, unspecified (6) History of Clostridium difficile colitis: (7) Leukocytosis: QUALIFIERS: Leukocytosis type: unspecified Qualified Code(s): D 72.829 - Elevated white blood cell count, unspecified (8) Fever: QUALIFIERS: Fever type: unspecified Qualified Code(s): R50.9 - Fever, unspecified (9) Hypomagnesemia: (10) History of cerebral palsy: (11) Ventilator dependence: (12) Chronic respiratory failure: QUALIFIERS: Respiratory failure complication: hypoxia Qualified Code(s): J96.11 - Chronic respiratory failure with hypoxia (13) Seizure: (14) Neuromuscular scoliosis: QUALIFIERS: Spinal region: unspecified Qualified Code(s): M41.40 - Neuromuscular scoliosis, site unspecified (15) Obesity (BMI 30-39.9): PLAN: Plan 1. CT scan of the abdomen and pelvis that revealed increased basilar airspace disease/consolidations of the lower lobes due to suspected Multifocal Pneumonia in addition to suspected radiolucent stone in the distal aspect of the CBD; consistent with Choledocholithiasis with gallstones in addition to fluid-filled colon possibly secondary to ileus/enteritis and diffuse thickening of the Left lateral wall of the bladder with a corresponding UA positive for evidence of Acute Cystitis; without hematuria with Leukocytosis of 11.9K and Fever present on admission in the setting of previously known recurrent UTI's with ESBL E. coli and diarrhea in the setting of a known history of Clostridium difficile colitis but with normal lactic acid of 1.7 mmol/L present on admission and normal-range blood pressure arguing against sepsis - Admit to ICU. Continue empiric IV meropenem and IV metronidazole and await culture & sensitivity data with PICC line pending placement in the AM. Give pantoprazole 40 mg IV daily. Give ketorolac IV prn for pain or fever. Give ondansetron IV prn nausea and vomiting. Check gallbladder ultrasound to confirm suspicion of CBD stone seen on CT. Follow up on stool studies already obtained in ER. Finally, we will consult gastroenterology and infectious disease to see this patient on-rounds in the AM for further recommendations with the help of both parties appreciated in advance. 2. Hypomagnesemia of 1.4 mg/dL present on admission exacerbating #1 - Give supplemental magnesium sulfate 2g IV once and then recheck level to confirm repletion. 3. Spastic hemiplegic cerebral palsy; with paraplegia and patient nonverbal at baseline in the setting of a history of tracheomalacia; s/p tracheostomy and PEG with patient on chronic ventilator at home complicating #1 & #2 - Stable. 4. Seizure disorder; on oxcarbazepine BID compounding #1 - #3 - Stable with no reports of recent seizure activity. 5. History of neuromuscular sclerosis with muscle spasms; on baclofen TID and diazepam BID adding to the medical complexity of #1 - #4 - Stable on current therapy. 6. Obesity; with BMI of 36.8 this admission adding to the burden of disease outlined from #1 - #5 - Weight loss will be recommended. Check TSH. This complicates her case and may hamper recovery. 7. History of admission here from November 02, 2024 to November 06, 2024 for treatment of UTI; with ESBL treated with IV meropenem with mild Hyponatremia of 127 mmol/L and lumps in her back - Noted. 8. History of staghorn calculus; s/p lithotripsy by Dr. Anaya of urology - Noted with no mention of renal calculi on CT this admission. 9. History of pancreatitis - Noted with normal-range lipase of 31 U/L present on admission and CT this admission reporting normal pancreas. 10. DM-2; on insulin glargine 20U sq q. PM plus novolog 18U sq QID - Keep NPO for now. FSBS q. 6 hours plus lowest-intensity SSI. Check HgbA1c to objectively assess quality of diabetic control. 11. History of pneumonia - Noted with suspected recurrence outlined in #1. 12. History of bronchiectasis; on prn levalbuterol - Continue present therapy. 13. OA; on ibuprofen q. 6 hours as needed - Stable. We will treat with IV ketorolac as outlined in #1. 14. DVT/GI prophylaxis - SCD's only with possible impending ERCP. Pantoprazole 40 mg IV daily. Total time: Approximately (but not less than) 75 minutes.
[2025-04-30 01:25] LABS: Lipase 31 U/L (13-75)
[2025-04-30] MEDS: metroNIDAZOLE 500 MG/100 ML BAG 100 MG IV (02:35)
[2025-04-30] MEDS: 0.9% Normal Saline (1000mL) 1,000 ML 125 ML IV ×2 (03:25→12:58)
[2025-04-30] MEDS: 0.9% Saline Lock 10 ML Syringe IV ×3 (03:25→12:57)
[2025-04-30] MEDS: Pantoprazole Sodium 40 MG in 0.9% Normal Saline (100mL MB+) 100 ML 330 MG IV ×2 (03:32→21:32)
[2025-04-30 03:54] LABS: Hematocrit 31.5 % (37-47); Hemoglobin 10.7 g/dL (12.0-15.0); Immature Granulocytes Count 0.050 X10^3/uL (0.0-0.0); Mean Corp Hgb Conc 34.0 g/dL (32-36); Mean Corpuscular Volume 94.9 fL (81-99); Mean Platelet Vol. 10.3 fl (6.2-12.0); NRBC Flagged by Analyzer 0 % (0-5); Platelet Count 193 K/mm3 (150-450); RBC Distribution Width CV 12.4 % (11.6-14.6); RBC Distribution Width SD 43.1 fl (35.1-43.9); Red Blood Count 3.32 M/mm3 (4.2-5.4); White Blood Count 12.1 K/mm3 (4.4-11.0)
[2025-04-30 03:56] LABS: Magnesium 1.4 mg/dL (1.5-2.2)
[2025-04-30 04:21] LABS: Cholesterol 121 mg/dL (<=200); Low Density Lipoprotein Calc. 68 mg/dL; Triglycerides 88 mg/dL; Very Low Density Lipoprotein 18 mg/dL (5-40); cholesterol:hdl ratio screen 3.39
[2025-04-30 04:33] LABS: AST(SGOT) 19 U/L (<=31); Alanine Aminotransfer ALT/SGPT 19 U/L (<=34); Albumin, Serum 3.6 g/dL (3.5-5.0); Alkaline Phosphatase 65 U/L (35-104); Anion Gap 12 (5-15); BUN 7 mg/dL (4-19); BUN/Creat Ratio 27.7 RATIO (10-20); Calcium,Total 8.7 mg/dL (7.6-11.0); Carbon Dioxide 24.1 mmol/L (21.0-32.0); Chloride 98 mmol/L (98-108); Estimated Creatinine Clearance 235.00 ml/min (50-250); Globulin 2.9 g/dL (2.2-4.2); Glucose 119 mg/dL (70-99); Potassium 3.4 mmol/L (3.3-5.1)
[2025-04-30] MEDS: Potassium Chloride 10mEq/100mL 10 MEQ/100 ML IV.SOLN. 100 MEQ IV BOLUS ×4 (05:19→09:23)
[2025-04-30] MEDS: Meropenem 1 GM in 0.9% Normal Saline (100mL MB+) 100 ML IV ×3 (05:20→21:58)
[2025-04-30] MEDS: Magnesium Sulfate 2 GM in Dextrose 5%-Water (100mL Bag) 100 ML IV (05:32)
--- NOTE | 2025-04-30 06:00 | US_ITS ---
PROCEDURE: GALLBLADDER 04/30/2025 REASON FOR EXAM: CHOLEDOCHLITHIASIS ON CT. COMPARISON: Prior CT scan dated April 30, 2025. FINDINGS: Liver: Diffusely echogenic suggesting fatty infiltration. Hepatomegaly. The liver measures 18.3 cm. Gallbladder: Solitary gallstone measuring 3.6 cm 2.5 cm 1.8 cm. There appears to be multiple stones within the cystic duct. There is also evidence of a 1 cm x 0.7 cm x 0.4 cm stone in the common bile duct. The gallbladder wall is not thickened although there appears to be increased vascularity to the wall of the gallbladder. Common bile duct: Dilated measuring up to 16.8 mm . Pancreas: Obscured by bowel gas. Other: Visualized portions of the right kidney multiple tiny right intrarenal calculi. No right upper quadrant ascites. US/Gallbladder IMPRESSION: Hepatomegaly and diffuse fatty infiltration of the liver. Solitary gallstone with stones seen in the common bile duct in the cystic duct. Common bile duct is dilated measuring 16.8 mm. Reading Location: [id number]
[2025-04-30] MEDS: Albuterol 2.5 MG/3 ML VIAL.NEB. INHALATION ×3 (07:35→19:13)
[2025-04-30] MEDS: Budesonide Respules 0.5 MG/2 ML AMPUL.NEB. INHALATION ×2 (08:50→19:13)
--- NOTE | 2025-04-30 08:54 | CPS ---
4L bled into her home ventilator
[2025-04-30] MEDS: OXCARBAZEPINE 300 MG/5 ML 480 MG PO ×2 (10:14→18:33)
--- NOTE | 2025-04-30 10:22 | CASEMGMT ---
Addendum entered by Dania Us 04/30/25 11:55: Pt is active, receiving SN only. Contact is Seymour @ [phone]. Dania Us DC Planning Asst. Original Note: [facility] Dania Us DC Planning Asst
--- NOTE | 2025-04-30 10:23 | CASEMGMT ---
HIREN WILSON Assessment: Face to Face with pt, pt's father, and pt's mother for initial transition planning/care coordination assessment. HIREN WILSON introduced self and role at [facility], pt is non-verbal, pt's parents voices understanding and consents to assessment. Care providers, pharmacy, and demographics verified/updated. Strata: 2 Admitting Dx: PNA, Choledocholithiasis, UTI PCP: Lara Specialists: , [place]; CHRIS Bettencourt; Héctor Urologist Preferred Pharmacy: [facility]: yes LNOK: Rina, Mom; Mikey, Dad Living Arrangements: Pt lives with parents in a 1 story with a ramp to enter. ADLs: Pt requires full assistance with ADLs and IADLs. Pt receives tube feedings and bed baths at home. Transportation: Pt requires ambulance for transportation. DME: PEG tube, Tube feed pump, Kelli lift, air mattress, glucometer and sufficient supplies, trach supplies through [employer], mechanical vent, concentrator and portable tanks. O2 provider is [employer] (Now called [facility]). TC to the [employer] company to verify pt's current home oxygen orders. No answer, VM left. Pt gets tube feeds, chucks pads, & briefs supplied through [facility]. HHC/SNF: Currently gets HHC services through [facility] / from 8-6 and // from 9-4. Pt's parents report that they wish to continue these services. Also noted that the pt has a hx of home IV ATB use through [facility] and the pt's mom was the teachable caregiver and was able to successfully administer the IV ATBs. Per chart review, ID is consulted and a PICC is ordered. If home IV ATBs are warranted again, pt's mother prefers to go through [facility] again. Pt Goal: Home Plan: Home, follow ID for possible IV antibiotics at DC. Will need transportation set up. Pt's parents prefer the pt to DC back home once medically ready and deny SNF needs. Parents wish to continue HH through [id number] and deny any further questions or concerns at this time. Maryse CUELLAR RN, CM
--- NOTE | 2025-04-30 12:55 | CON.PCM.ID_ITS ---
Assessment & Plan Assessment/Plan (1) History of Clostridium difficile colitis: (2) Fever: QUALIFIERS: Fever type: unspecified Qualified Code(s): R50.9 - Fever, unspecified PLAN: GI to see. Ucx and bcx pending. Cont meropenem, will stop flagyl. Will follow, thank you (3) Acute cystitis without hematuria: (4) Choledocholithiasis: (5) Multifocal pneumonia: HPI Consult Data Date of Consult: 04/30/25 HPI Narrative Reason for Consultation: fever HPI Narrative: MANDY RIVERA, is a 35 F with spastic hemiplegic cerebral palsy, presented to ED 04/29 with acute onset fever, tachycardia. Had some R sided abd pain past few days. Some urine changes, not feeling well. Came to ED, admitted to icu, now on meropenem and flagyl. Feeling a little better. ROS unobtainable due to mental status. [facility] Medical History ESBL (extended spectrum beta-lactamase) producing bacteria infection On tube feeding diet History of Clostridium difficile infection MRSA infection Redness of skin Bladder disease History of renal disease Seizures Dietary restriction On home oxygen therapy Non-smoker Renal calculi Skin tag of vaginal mucosa Renal calculus or stone PICC (peripherally inserted central catheter) in place Bedbound Pancreatitis Kidney stones Ventilator dependent Urinary tract infection due to extended-spectrum beta lactamase (ESBL) producing Escherichia coli Recurrent UTI [place] renal calculus Diabetes Chronic respiratory failure Allergic rhinitis due to other allergen Paraplegia Visual disturbance Amenorrhea Neuromuscular scoliosis Hyperglycemia Vitamin D deficiency Respiratory acidosis Thrush Lactic acid acidosis Bronchitis Irregular menstrual cycle 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 Bronchiectasis without acute exacerbation Severe sepsis Seizure Cerebral palsy Pneumonia Home Medications ?Medication ?Instructions ?Recorded ?Last Taken ?Type baclofen 20 mg tablet 30 mg G-tube TID muscle spas ms 09/02/13 11/02/24 20:30 History oxcarbazepine 300 mg/5 mL (60 8 ml G-tube BID seizure 08/28/17 11/02/24 20:30 History mg/mL) oral suspension (Trileptal) diazepam 5 mg/5 mL (1 mg/mL) oral 5 mg feeding tube DA JANAK@1400 spasms 05/20/21 11/02/24 14:00 History solution diazepam 5 mg/5 mL (1 mg/mL) oral 7 mg feeding tube BI D spasms 05/20/21 11/02/24 20:30 History solution ascorbic acid (vitamin C) 500 mg/5 500 mg feeding tube BID SUPPLEMENT 12/12/21 11/02/24 History mL oral syrup cholecalciferol (vitamin D3) 50 50 mcg feeding tube DA JANAK 12/12/21 11/02/24 History mcg (2,000 unit) capsule SUPPLEMENT ibuprofen 100 mg/5 mL oral 400 mg PO Q6H PRN Pain 04/0 10/0402/24/22 History suspension miconazole nitrate 2 % vaginal 1 appful vaginal DAILY PRN YEAST 12/12/21 1 Week Ago History cream (Monistat 7) ~02/17/22 sodium chloride 0.9 % for 3 - 6 ml inhalation Q2H PRN 12/12/21 02/23/22 History nebulization Congestion levalbuterol HCl 1.25 mg/3 mL 1.25 mg (3 mL) inhalatio n BID 01/16/22 11/02/24 Rx solution for nebulization BREATHING #90 mL acetaminophen 160 mg/5 mL oral 640 mg PO Q4H PRN pain/ fever 03/31/22 Unknown History liquid acidophilus 25 million 1 tab G-tube DAILY supplemen t 03/31/22 11/02/24 History cell-pectin, citrus 100 mg tablet carbamide peroxide 6.5 % ear drops 5 drp EACH EAR ZACHERY Y PRN Ear Wax 03/31/22 Unknown History (Debrox) magnesium hydroxide 400 mg/5 mL 15 - 60 ml PO DAILY OH N 03/31/22 Unknown History oral suspension (Milk of Magnesia) Constipation nystatin 100,000 unit/gram topical 1 applic topical BI D PRN redness 03/31/22 Unknown History powder ferrous sulfate 15 mg iron (75 5 ml feeding tube MOTH supplement 08/24/22 11/02/24 History mg)/mL oral syringe (ORAL USE) docusate sodium 60 mg/15 mL oral 60 mg feeding tube DA JANAK Check 08/29/22 Unknown History syrup with primary doctor nutritional supplements 1 ea PO BID Check with prima ry 08/29/22 Unknown History doctor meropenem 1 gram intravenous 1 g IV Q8 infection 7 day s #21 ea 09/03/22 11/02/24 Rx solution blood sugar diagnostic (True #400 ea 02/23/23 Unknown Rx Metrix Pro Test Strip) cetirizine 5 mg/5 mL oral solution 10 mg (10 mL) PO DA JANAK allergy 03/18/23 11/02/24 Rx symptoms #300 mL fluticasone propionate 44 2 puff inhalation BID Check with 05/23/24 11/02/24 Rx mcg/actuation HFA aerosol inhaler primary doctor #10.6 grams (Flovent HFA) levalbuterol HCl 1.25 mg/3 mL 1.25 mg (3 mL) inhalatio n Q4H PRN 05/23/24 Unknown Rx solution for nebulization sob #150 mL insulin glargine 100 unit/mL (3 20 unit (0.2 mL) subcu t QPM sugar 10/24/24 11/01/24 Rx mL) subcutaneous pen (Basaglar #15 mL KwikPen U-100 Insulin) artificial tears(hypromellose) 0.3 1 drp EACH EYE BID PRN dry eyes 11/02/24 Unknown History % eye gel (GenTeal Tears Severe) bacitracin 500 unit/gram topical 1 applic topical 4X/D AY PRN 11/02/24 Unknown History ointment ABRASIONS guaifenesin 100 mg/5 mL oral liquid 200 mg G-tube Q4H PRN thick 11/02/24 Unknown History secretions honey 80 % topical gel ([place] 1 applic topical BID OH N wound 11/02/24 Unknown History Honey) healing hydrocortisone 1 % topical cream 1 applic topical 4X/D AY PRN itching 11/02/24 Unknown History (Ala-Brown) methenamine hippurate 1 gram tablet 1 g PO BID infecti on 11/02/24 11/02/24 History xuktbjgs-obof-vynggid gluconate 9 5 ml PO DAILY supple ment 11/02/24 11/02/24 History mg iron/15 mL (15 mL) oral liquid (Centrum) potassium chloride 20 mEq/15 mL 10 meq PO DAILY supple ment 11/02/24 11/02/24 History oral liquid sodium chloride 0.9 % topical spray 1 applic topical P RN trach care 11/02/24 Unknown History trolamine salicylate 10 % topical 1 applic topical 4X/ DAY PRN muscle 11/02/24 Unknown History cream (Alcis) pain Novolog FlexPen U-100 Insulin 100 18 unit (0.18 mL) conklin bcut .qid 01/29/25 Unknown Rx unit/mL (3 mL) subcutaneous sugar 90 days #33 mL (insulin aspart U-100) pen needle, diabetic 32 gauge x #360 ea 01/29/25 Unkno wn Rx lancets 30 gauge (Embrace Lancets) #200 ea 02/21/25 Un known Rx blood sugar diagnostic (True #150 ea 04/03/25 Unknown Rx Metrix Glucose Test Strip) lancets 33 gauge (OneTouch Delica #200 ea 04/17/25 Unk nown Rx Plus Lancet) lancing device with lancets kit #1 ea 04/17/25 Unknown Rx (OneTouch Delica Plus Lancing Device kit) nut.tx impaired digest-fiber 14.8 ea feeding tube .qid feeding 04/30/25 Unknown History gram-472 kcal/100 gram oral powder (Neocate Rell With Prebiotics) Allergy/AdvReac Type Severity Reaction Status Date / Time linezolid Allergy Severe Other - Verified 04/29/25 19:53 seizure & coma vancomycin Allergy Severe Other - Verified 04/29/25 19:53 kidney failure tobramycin Allergy Intermediate Other - Verified 04/29/25 19:53 turned beet red nafcillin Allergy Mild Rash Verified 04/29/25 19:53 benzoin Allergy Unknown Rash Verified 04/29/25 19:53 milk Allergy Unknown Other Verified 04/29/25 19:53 soy Allergy Unknown Other Verified 04/29/25 19:53 polyethylene glycol 3350 AdvReac Unknown Hives Verified 04/29/25 19:53 (From Miralax) Family History Grandmother Cancer maternal Other Adopted Surgical History Presence of intrathecal baclofen pump Gastrostomy tube in place Status post Jorje fundoplication H/O spinal fusion rods to back surgery on gland under tongue eyes straightened derotatox ostomies tendonatomies Tracheostomy status Social History household members: other details: Mother and is vent dependent housing: house Smoking Status: Never smoker second hand exposure: No alcohol intake: never substance use type: does not use Physical Exam Const alert and no apparent distress HEENT head/scalp atraumatic Eyes PERRL and EOMs intact bilaterally Neck supple and No nodes Resp Auscultation: diminished lung sounds Cardio Rate: tachycardic Heart Sounds: Negative for murmur GI soft to palpation, non-tender and non-distended Extremity General Extremity: Negative for edema Skin no rashes or lesions noted Lab / Micro Data Attestation: I reviewed the patient's lab results. 04/30/25 03:35 04/30/25 03:35 Labs: Laboratory Results - last 24 hr 04/29/25 21:20: WBC 11.9 H, RBC 3.70 L, Hgb 12.0, Hct 34.3 L, MCV 92.7, MCH 32.4 H, MCHC 35.0, RDW Std Deviation 42.4, RDW Coeff of Anne 12.4, Plt Count 182, MPV 10.4, Immature Gran % (Auto) 0.800, Neut % (Auto) 76.9 H, Lymph % (Auto) 10.1 L, [place] % (Auto) 11.4 H, Eos % (Auto) 0.5, Baso % (Auto) 0.3, Absolute Neuts (auto) 9.2 H, Absolute Lymphs (auto) 1.20, Nucleated RBC % 0, Platelet Estimate ADEQUATE, RBC Morphology NORM C+C, Sodium 131 L, Potassium 3.8, Chloride 93 L, Carbon Dioxide 25.8, Anion Gap 13, BUN 8, Creatinine 0.36 L, Estim Creat Clear Calc 156.67, Est GFR (MDRD) Non-Af 135, BUN/Creatinine Ratio 23.1 H, Glucose 153 H, Calcium 9.6, Total Bilirubin 0.26, AST 35 H, ALT 27, Alkaline Phosphatase 78, Total Protein 7.3, Albumin 4.0, Globulin 3.3, Albumin/Globulin Ratio 1.2, Lipase 31 04/29/25 21:35: Lactic Acid 1.7 04/29/25 22:03: Urine Color Straw, Urine Clarity Cloudy, Urine pH 7.0, Ur Specific [place] 1.010, Urine Protein 30 H, Urine Glucose (UA) 250 H, Urine Ketones Negative, Urine Occult Blood 25 H, Urine Nitrite Positive H, Urine Bilirubin Negative, Urine Urobilinogen Normal, Ur Leukocyte Esterase 500 H, Urine RBC 0-5 SEEN, Urine WBC 50-100 SEEN, Ur Squamous Epith Cells 0-5 SEEN, Urine Bacteria 4+, Urine Mucus 0 SEEN 04/29/25 23:22: PT 14.6, INR 1.1, APTT 28.0 04/30/25 02:45: Lactic Acid < 1.0, Magnesium 1.4 L, TSH 2.040 04/30/25 03:35: WBC 12.1 H, RBC 3.32 L, Hgb 10.7 L, Hct 31.5 L, MCV 94.9, MCH 32.2 H, MCHC 34.0, RDW Std Deviation 43.1, RDW Coeff of Anne 12.4, Plt Count 193, MPV 10.3, Immature Gran % (Auto) 0.400, Neut % (Auto) 76.6 H, Lymph % (Auto) 10.0 L, [place] % (Auto) 12.1 H, Eos % (Auto) 0.7, Baso % (Auto) 0.2, Absolute Neuts (auto) 9.3 H, Absolute Lymphs (auto) 1.21, Nucleated RBC % 0, Sodium 134, Potassium 3.4, Chloride 98, Carbon Dioxide 24.1, Anion Gap 12, BUN 7, Creatinine 0.24 L, Estim Creat Clear Calc 235.00, Est GFR (MDRD) Non-Af 150, BUN/Creatinine Ratio 27.7 H, Glucose 119 H, Hemoglobin A1c 5.1, Calcium 8.7, Phosphorus 2.9, Total Bilirubin 0.29, AST 19, ALT 19, Alkaline Phosphatase 65, Total Protein 6.5, Albumin 3.6, Globulin 2.9, Albumin/Globulin Ratio 1.2, Triglycerides 88, Cholesterol 121, LDL Cholesterol, Calc 68, VLDL Cholesterol 18, HDL Cholesterol 36 L, Cholesterol/HDL Ratio 3.39 04/30/25 05:30: POC Glucose 115 H Micro: Microbiology 04/30/25 03:43 Nasal Secretion MRSA (PCR) - Final 04/29/25 22:03 Urine Catheter - Catheter Urine Culture - Preliminary GNR lactose administrative resources associate 04/29/25 22:03 Urine Catheter - Catheter Legionella Antigen - Final 04/29/25 22:03 Urine Catheter - Catheter Streptococcus pneumoniae Antigen (M - Final 04/29/25 22:03 Mucosa - Nose SARS-CoV-2, Influenza & RSV (PCR) - Final Imaging Radiology Impression Chest/Abdomen/Pelvis CT 04/29/25 21:06 IMPRESSION: Increased bilateral basilar airspace disease/consolidations of the lower lobes, possibly multifocal pneumonia. Midline tracheostomy tube is in good position. Unremarkable spinal metallic hardware. Bilateral nonobstructing renal stones with the largest measuring 8 mm on the right side. Percutaneous gastrostomy tube is in good position. Moderate gastroparesis. Right ovarian cyst measuring 4.7 cm in the interim. Two nonobstructing stones are noted layering in the posterior/dependent aspect of the bladder in the interim with the largest measuring 5 mm. Diffuse thickening of the left lateral wall of the bladder. Fluid-filled colon, possibly secondary to ileus/enteritis. Suspected gallstones. Dilated common bile duct. Suspected radiolucent stone in the distal aspect of the common bile duct. [id number] 04/30/25 06:00 IMPRESSION: Hepatomegaly and diffuse fatty infiltration of the liver. Solitary gallstone with stones seen in the common bile duct in the cystic duct. Common bile duct is dilated measuring 16.8 mm. Reading Location: [id number]
--- NOTE | 2025-04-30 14:57 | CHAPLAIN ---
Type of Pastoral Visit _x__ Initial Visit ___ Follow-up Visit ___ On-call Visit ___ General Patient Visit ___ Spiritual Assessment ___ Family Conference ___ Bereavement ___ Rapid Response ___ Code Blue ___ Other (describe below) Pastoral Care Referral From ___ Patient _x__ Family ___ Nurse ___ Physician ___ Technical Systems Architect ___ Screen Roller ___ Other (describe below) Sacrament/Intervention _x__ Active listening ___ Anointing ___ Episcopalian ___ Bereavement ___ Communion _x__ Jolie exploration ___ _x__ Life review _x__ Prayer ___ Reconciliation ___ Sacrament of Sick ___ Supportive presence ___ Wedding ___ Other (describe below) Pastoral Comments patient is nonverbal and is watching a children's video on the screen; mother of pt is at the bedside and has been met before in previous situations at the hospital; mother gives details of the current health issues of the patient and how blessed they are that pt does not ever complain and is always content; family is a family of jolie in God and give testimony of His goodness; mother talks about their son and his family as well; RN came into room to say that pt will be moved downstairs for a procedure soon; prayer and words of hope given
--- NOTE | 2025-04-30 15:28 | PRE.ANES_ITS ---
ASA Classification* ASA Classification ASA Classification: 4 Assessment & Plan Anesthesia* Anesthesia Assessment Anesthesia Assessment: Discussed sedation and/or anesthesia options, risks, benefits, and alternatives with patient/parents/legal guardian/POA. Questions invited. The patient/parents/legal guardian/POA seems to understand and agrees to proceed with anesthesia plan. Reviewed the physical assessment, medical history, allergy history and patient home medications list prior to surgery/procedure/anesthetic and documented any changes. Performed airway and anesthesia risk assessments. Anesthesia Type Anesthesia Type: General (Leave patient on her own ventilator and give IV propofol. ) History Source History Obtained from:: Chart and Parent/ Guardian Anesthesia Focused Assessment* Temperature: 98.2 F Pulse Rate: 94 Blood Pressure: 131/79 Respiratory Rate: 22 Pulse Ox: 97 Oxygen Delivery Method: Mechanical Ventilator (VENT SETTINGS: TV 240, RR 14 (can breathe above it), PS 8, PEEP 7. IE 1:1.5, 4L Oxygen bled into ventilator (no percentage given).) Oxygen Flow Rate (L/min): 4 Airway Assessment Mouth opens: 1 cm (Unable to assess) Mallampati Score: IV Comment: Unable to assess airway. Currently has 5.0 pediatric Bivona CUFFED. Labs Anesthesia Preop lab: CBC WBC 12.1 K/mm3 (4.4-11.0) H 04/30/25 03:35 5 RBC 3.32 M/mm3 (4.2-5.4) L 04/30/25 03:35 04/30/25 Hgb 10.7 g/dL (12.0-15.0) L 04/30/25 03:35 5 Hct 31.5 % (37-47) L 04/30/25 03:35 04/30/25 Plt Count 193 K/mm3 (150-450) 04/30/25 03:35 04/30/25 CHEMISTRY Potassium 3.4 mmol/L (3.3-5.1) 04/30/25 03:35 04/30/25 Sodium 134 mmol/L (133-145) 04/30/25 03:35 04/30/25 Magnesium 1.4 mg/dL (1.5-2.2) L 04/30/25 02:45 04/30/25 Phosphorus 2.9 mg/dL (2.7-4.5) 04/30/25 03:35 04/30/25 BUN 7 mg/dL (4-19) 04/30/25 03:35 04/30/25 Creatinine 0.24 mg/dL (0.70-1.20) L 04/30/25 03:35 Glucose 119 mg/dL (70-99) H 04/30/25 03:35 04/30/25 POC Glucose 86 mg/dL (74-106) 04/30/25 13:06 04/30/25 TSH 2.040 uIU/mL (0.300-4.200) 04/30/25 02:45 04/13 05/07 COAG PT 14.6 SECONDS (11.7-14.9) 04/29/25 23:22 Urine Test Negative Negative 08/25/21 09:23 08/25/21 Pre-Assessment Diagnosis/Proposed Procedure Planned Operative Procedure(s): ERCP Anesthesia History Anesthesia History - hourly shift manager: Anesthesia History - hourly shift manager Hx Hospitalization No 10/13/21 08:48 Any Problems With Anesthesia No 10/13/21 08:48 Cholinesterase deficiency No 10/13/21 08:48 You/Your Family Experience No 10/13/21 08:48 fever (hyperthermia) with Relationship Recent Exposure to Contagious No 10/14/21 07:21 Disease Does patient have nerve No 10/13/21 08:48 stimulator Patient instructed to have device shut off --Does patient have Pacemaker or ICD? When Was Last Pacemaker Check QUESTION #4 FULL TEXT: You/Your Family Experience fever (hyperthermia) with Anesthesia Any additional information?: No Last Oral Intake Last Oral intake: Last Oral Intake NPO since Meds taken in AM with sips of water? Meds patient instructed to take am of surgery Any additional information?: Yes NPO since: 17:00 (04/29/25) Meds taken in AM with sips of water?: No PONV PONV - hourly shift manager: PONV - hourly shift manager Female HX of Motion Sickness HX of N/V After Surgery Non-Smoker Duration of Surgery greater than 60 minutes Number of Risk Factors PONV Score Any additional information?: No Height & Weight Height & Weight: Anesthesia: Height & Weight Height 4 ft 7 in 04/30/25 09:40 Weight: 47.4 kg 04/30/25 09:40 Body Mass Index (BMI) 24.3 04/30/25 02:55 Respiratory Assessment Respiratory Assessment - hourly shift manager: Respiratory Tract Infection Hx - hourly shift manager Hx Respiratory Tract Infection No 10/13/21 08:48 Any additional information?: No STOP Sleep Apnea STOP Sleep Apnea - hourly shift manager: STOP Sleep Apnea - hourly shift manager Hx Hypertension No 04/30/25 02:55 Hx Sleep Apnea No 04/30/25 02:55 CPAP Yes: home vent 08/29/22 18:57 BIPAP No 02/24/22 14:57 Do you snore loudly (louder No 04/30/25 02:55 than talking or can be heard Do you often feel tired/ No 04/30/25 02:55 fatigued/ sleepy during daytime? Has anyone observed you stop No 04/30/25 02:55 breathing during sleep? STOP Results Negative 04/30/25 02:55 QUESTION #5 FULL TEXT : Do you snore loudly (louder than talking or can be heard through closed doors)? Any additional information?: No Tobacco Use History Tobacco Use History - hourly shift manager: Tobacco Use History - hourly shift manager Tobacco Use Smoking Status Never smoker 04/30/25 02:55 Hx Tobacco Use No 04/30/25 02:55 Years Smoking Packs Smoked per Day Smoking Cessation Date was within the last 15 years Hx Smoking Cessation Date Hx Smoking Cessation Counseling Any additional information?: No Hematologic Medial History Hematologic Hx - hourly shift manager: Hematologic Medical Hx - certified medical biller Hx of Blood Transfusion No 04/30/25 02:55 Hx of Transfusion in last 3 No 04/30/25 02:55 Months Date of Last Transfusion (if within last 3 months) Ever experience any problems No 04/30/25 02:55 with transfusion(s)? Specify any problems Hx of Preganancy in last 3 No 04/30/25 02:55 Months Nurse Filling Out Transfusion MPHILLIPS 04/30/25 02:55 & Questions: Date: 04/30/25 04/30/25 02:55 Time: 03:04 04/30/25 02:55 Patient unable to answer at this time (ie. confused, unrespo Any additional information?: No /Reproduction History /Reproductive History - hourly shift manager: /Reproductive Hx- hourly shift manager Hx Now No 04/30/25 02:55 Gestational Age (in weeks): EDC: Hx Hx Para Hx Section SAB No 04/30/25 02:55 Any additional information?: No Active Medications Active Medications: Current Medications Generic Name Dose Route Start Last Admin Trade Name Freq PRN Reason Stop Dose Admin Albuterol Sulfate 2.5 mg 04/30/25 06:00 04/30/25 13:03 Albuterol 2.5 Mg/3 Ml Vial.Neb. INHALATION 2.5 mg Q6HWA.RT BECKY Administration Bacitracin 1 applic 04/30/25 02:31 Bacitracin 15 Gm Tube TOPICAL 4X/DAY PRN PRN ABRASIONS Baclofen 30 mg 04/30/25 08:30 04/30/25 15:10 Baclofen 10 Mg Tablet GT Not Given 0830,1400,2000 BECKY Budesonide 0.5 mg 04/30/25 06:00 04/30/25 08:50 Budesonide Respules 0.5 Mg/2 Ml Ampul.Neb. INHALATION 0.5 mg Q12H.RT BECKY Administration Diazepam 7 mg 04/30/25 22:00 Diazepam 5 Mg/5 Ml Solution GT BID@0800,2200 BECKY Diazepam 5 mg 04/30/25 14:00 04/30/25 15:10 Diazepam 5 Mg/5 Ml Solution GT Not Given DAILY@1400 BECKY Diazepam 5 mg 04/30/25 08:30 04/30/25 09:27 Diazepam 5 Mg Tablet GT 5 mg X1 BECKY Administration Diazepam 2 mg 04/30/25 08:30 04/30/25 09:27 Diazepam 2 Mg Tablet GT 2 mg X1 BECKY Administration Glucagon 1 mg 04/30/25 02:31 Glucagon 1 Mg/Ml Syringe IM X1 PRN HYPOGLYCEMIA Protocol Glycerin/Hypromellose/Polyethylene 1 drp 04/30/25 02:31 Glycerin/Hypromellose/[id number] 15 Ml Bottle EACH EYE BID PRN PRN dry eyes Hydrocortisone 1 applic 04/30/25 02:31 Hydrocortisone 2.5% Crm TOPICAL 4X/DAY PRN PRN itching Sodium Chloride 1,000 mls @ 125 mls/hr 04/30/25 01:51 04/30/25 12:58 IV 04/30/25 17:50 125 mls/hr .Q8H BECKY Administration Pantoprazole Sodium 40 mg/ 100 mls @ 330 mls/hr 04/30/25 02:31 04/30/25 03:52 Sodium Chloride IV Infused 2200 BECKY Infusion Dextrose 250 mls @ 0 mls/hr 04/30/25 02:31 Dextrose 10%-Water IV .Q0M PRN HYPOGLYCEMIA Protocol As Directed Meropenem 1 gm/ Sodium 100 mls @ 33 mls/hr 04/30/25 06:00 04/30/25 14:59 Chloride IV 33 mls/hr Q8 BECKY Administration Sodium Chloride 250 mls @ 15 mls/hr 04/30/25 03:06 IV .[id number] PRN Saline Flush Sodium Chloride 250 mls @ 15 mls/hr 04/30/25 03:06 IV .[id number] PRN Additional IVPB Infusion Insulin Glargine 12 unit 04/30/25 22:00 Insulin Glargine-Yfgn 100 Unit/Ml Pen SC QHS [facility] Insulin Human Lispro 0 unit 04/30/25 06:00 04/30/25 13:08 Insulin Lispro 100 Unit/Ml Insuln.Pen SC Not Given Q6 [facility] Protocol Ketorolac Tromethamine 15 mg 04/30/25 02:31 Ketorolac 15 Mg/Ml Vial IV 05/05/25 02:31 Q8H PRN PRN Pain 1-10 or Fever Miconazole Nitrate 1 applic 04/30/25 02:31 Miconazole-7 Nitrate Cream VAGINAL DAILY PRN YEAST Non-Formulary Medication 1 applic 04/30/25 02:31 Honey [Manuka Honey] TOPICAL BID PRN wound healing Non-Formulary Medication 2 drp 04/30/25 02:31 Naphazoline OPHTHALMIC DAILY PRN allergies Non-Formulary Medication 1 applic 04/30/25 02:31 Trolamine Salicylate [Alcis] TOPICAL 4X/DAY PRN muscle pain Ondansetron HCl 4 mg 04/30/25 02:31 Ondansetron 4 Mg/2 Ml Vial IV Q6H PRN PRN NAUSEA/VOMITING Oxcarbazepine 480 mg 04/30/25 08:30 04/30/25 10:14 Oxcarbazepine 300 Mg/5 Ml Oral.Susp PO 480 mg 0830,1999 BECKY Administration Sodium Chloride 6 ml 04/30/25 02:31 Sodium Cl For Inhalation 3 Ml Vial.Neb. INHALATION Q2H PRN PRN Congestion Sodium Chloride 1 ml 04/30/25 02:31 Sodium Cl For Inhalation 3 Ml Vial.Neb. INHALATION Q1H PRN PRN TRACH CARE Sodium Chloride 10 - 40 ml 04/30/25 03:06 04/30/25 12:57 0.9% Saline Lock 10 Ml Syringe IV 10 ml UD PRN Administration SALINE FLUSH PFSH Medical History ESBL (extended spectrum beta-lactamase) producing bacteria infection On tube feeding diet History of Clostridium difficile infection MRSA infection Redness of skin Bladder disease History of renal disease Seizures Dietary restriction On home oxygen therapy Non-smoker Renal calculi Skin tag of vaginal mucosa Renal calculus or stone PICC (peripherally inserted central catheter) in place Bedbound Pancreatitis Kidney stones Ventilator dependent Urinary tract infection due to extended-spectrum beta lactamase (ESBL) producing Escherichia coli Recurrent UTI Staghorn renal calculus Diabetes Chronic respiratory failure Allergic rhinitis due to other allergen Paraplegia Visual disturbance Amenorrhea Neuromuscular scoliosis Hyperglycemia Vitamin D deficiency Respiratory acidosis Thrush Lactic acid acidosis Bronchitis Irregular menstrual cycle 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 Bronchiectasis without acute exacerbation Severe sepsis Seizure Cerebral palsy Pneumonia Home Medications ?Medication ?Instructions ?Recorded ?Last Taken ?Type baclofen 20 mg tablet 30 mg G-tube TID muscle spas ms 09/02/13 11/02/24 20:30 History oxcarbazepine 300 mg/5 mL (60 8 ml G-tube BID seizure 08/28/17 11/02/24 20:30 History mg/mL) oral suspension (Trileptal) diazepam 5 mg/5 mL (1 mg/mL) oral 5 mg feeding tube DA JANAK@1400 spasms 05/20/21 11/02/24 14:00 History solution diazepam 5 mg/5 mL (1 mg/mL) oral 7 mg feeding tube BI D spasms 05/20/21 11/02/24 20:30 History solution ascorbic acid (vitamin C) 500 mg/5 500 mg feeding tube BID SUPPLEMENT 12/12/21 11/02/24 History mL oral syrup cholecalciferol (vitamin D3) 50 50 mcg feeding tube DA JANAK 12/12/21 11/02/24 History mcg (2,000 unit) capsule SUPPLEMENT ibuprofen 100 mg/5 mL oral 400 mg PO Q6H PRN Pain 04/0 10/0402/24/22 History suspension miconazole nitrate 2 % vaginal 1 appful vaginal DAILY PRN YEAST 12/12/21 1 Week Ago History cream (Monistat 7) ~02/17/22 sodium chloride 0.9 % for 3 - 6 ml inhalation Q2H PRN 12/12/21 02/23/22 History nebulization Congestion levalbuterol HCl 1.25 mg/3 mL 1.25 mg (3 mL) inhalatio n BID 01/16/22 11/02/24 Rx solution for nebulization BREATHING #90 mL acetaminophen 160 mg/5 mL oral 640 mg PO Q4H PRN pain/ fever 03/31/22 Unknown History liquid acidophilus 25 million 1 tab G-tube DAILY supplemen t 03/31/22 11/02/24 History cell-pectin, citrus 100 mg tablet carbamide peroxide 6.5 % ear drops 5 drp EACH EAR ZACHERY Y PRN Ear Wax 03/31/22 Unknown History (Debrox) magnesium hydroxide 400 mg/5 mL 15 - 60 ml PO DAILY W[place] N 03/31/22 Unknown History oral suspension (Milk of Magnesia) Constipation nystatin 100,000 unit/gram topical 1 applic topical BI D PRN redness 03/31/22 Unknown History powder ferrous sulfate 15 mg iron (75 5 ml feeding tube MOTH supplement 08/24/2211/02 History mg)/mL oral syringe (ORAL USE) docusate sodium 60 mg/15 mL oral 60 mg feeding tube DA JANAK Check 08/29/22 Unknown History syrup with primary doctor nutritional supplements 1 ea PO BID Check with prima ry 08/29/22 Unknown History doctor meropenem 1 gram intravenous 1 g IV Q8 infection 7 day s #21 ea 09/03/22 11/02/24 Rx solution blood sugar diagnostic (True #400 ea 02/23/23 Unknown Rx Metrix Pro Test Strip) cetirizine 5 mg/5 mL oral solution 10 mg (10 mL) PO DA JANAK allergy 03/18/23 11/02/24 Rx symptoms #300 mL fluticasone propionate 44 2 puff inhalation BID Check with 05/23/24 11/02/24 Rx mcg/actuation HFA aerosol inhaler primary doctor #10.6 grams (Flovent HFA) levalbuterol HCl 1.25 mg/3 mL 1.25 mg (3 mL) inhalatio n Q4H PRN 05/23/24 Unknown Rx solution for nebulization sob #150 mL insulin glargine 100 unit/mL (3 20 unit (0.2 mL) subcu t QPM sugar 10/24/24 11/01/24 Rx mL) subcutaneous pen (Basaglar #15 mL KwikPen U-100 Insulin) artificial tears(hypromellose) 0.3 1 drp EACH EYE BID PRN dry eyes 11/02/24 Unknown History % eye gel (GenTeal Tears Severe) bacitracin 500 unit/gram topical 1 applic topical 4X/D AY PRN 11/02/24 Unknown History ointment ABRASIONS guaifenesin 100 mg/5 mL oral liquid 200 mg G-tube Q4H PRN thick 11/02/24 Unknown History secretions honey 80 % topical gel (Manuka 1 applic topical BID WV N wound 11/02/24 Unknown History Honey) healing hydrocortisone 1 % topical cream 1 applic topical 4X/D AY PRN itching 11/02/24 U nknown History (Ala-Brown) methenamine hippurate 1 gram tablet 1 g PO BID infecti on 11/02/24 11/02/24 History ignlglpg-ruvf-snabdxt gluconate 9 5 ml PO DAILY supple ment 11/02/24 11/02/24 History mg iron/15 mL (15 mL) oral liquid (Centrum) potassium chloride 20 mEq/15 mL 10 meq PO DAILY supple ment 11/02/24 11/02/24 History oral liquid sodium chloride 0.9 % topical spray 1 applic topical P RN trach care 11/02/24 Unknown History trolamine salicylate 10 % topical 1 applic topical 4X/ DAY PRN muscle 11/02/24 Unknown History cream (Alcis) pain Novolog FlexPen U-100 Insulin 100 18 unit (0.18 mL) conklin bcut .qid 01/29/25 Unknown Rx unit/mL (3 mL) subcutaneous sugar 90 days #33 mL (insulin aspart U-100) pen needle, diabetic 32 gauge x #360 ea 01/29/25 Unkno wn Rx lancets 30 gauge (Embrace Lancets) #200 ea 02/21/25 Un known Rx blood sugar diagnostic (True #150 ea 04/03/25 Unknown Rx Metrix Glucose Test Strip) lancets 33 gauge (OneTouch Delica #200 ea 04/17/25 Unk nown Rx Plus Lancet) lancing device with lancets kit #1 ea 04/17/25 Unknown Rx (OneTouch Delica Plus Lancing Device kit) nut.tx impaired digest-fiber 14.8 ea feeding tube .qid feeding 04/30/25 Unknown History gram-472 kcal/100 gram oral powder (Neocate Rell With Prebiotics) Allergy/AdvReac Type Severity Reaction Status Date / Time linezolid Allergy Severe Other - Verified 04/29/25 19:53 seizure & coma vancomycin Allergy Severe Other - Verified 04/29/25 19:53 kidney failure tobramycin Allergy Intermediate Other - Verified 04/29/25 19:53 turned beet red nafcillin Allergy Mild Rash Verified 04/29/25 19:53 benzoin Allergy Unknown Rash Verified 04/29/25 19:53 milk Allergy Unknown Other Verified 04/29/25 19:53 soy Allergy Unknown Other Verified 04/29/25 19:53 polyethylene glycol 3350 AdvReac Unknown Hives Verified 04/29/25 19:53 (From [email or web address]) Family History Grandmother Cancer maternal Other Adopted Surgical History Presence of intrathecal baclofen pump Gastrostomy tube in place Status post Jorje fundoplication H/O spinal fusion rods to back surgery on gland under tongue eyes straightened derotatox ostomies tendonatomies Tracheostomy status Social History household members: other details: Mother and is vent dependent housing: house Smoking Status: Never smoker second hand exposure: No alcohol intake: never substance use type: does not use Addt'l Information Additional Findings: 2011- Last seizure as a result of vancomycin being infused too fast. Trach to stay to the RIGHT DO NOT Suciton past 8 (patient has artery running below that that may be affected.) Review of Systems (Anesthesia) ROS Narrative System reviewed and no additional complaints, except as documented.
--- NOTE | 2025-04-30 15:30 | NURSING ---
PT left floor in the care of [place] RN, surgery transporter, and respiratory therapist. Mother followed down to [place] to meet with Dr. Gay.
--- NOTE | 2025-04-30 16:22 | CON.PCM.GI_ITS ---
HPI Consult Data Date of Consult: 04/30/25 HPI Narrative Reason for Consultation: Abnormal CT scan and choledocholithiasis HPI Narrative: MANDY RIVERA, is a 35 F who presents with fever and lethargy. All of history obtained from patient's mother and the chart. She has a past medical history of spastic hemiplegic cerebral palsy; with paraplegia and patient nonverbal at baseline. She is also s/p tracheostomy and PEG with patient on chronic ventilator at home. According to the chart she fever up to ~102.5 degrees Fahrenheit and in addition to dysuria and loose stools over the past week. In the ER she was noted to have a CT scan of the abdomen and pelvis that revealed increased basilar airspace disease/consolidations of the lower lobes due to suspected Multifocal Pneumonia in addition to suspected radiolucent stone in the distal aspect of the CBD; consistent with Choledocholithiasis with gallstones in addition to fluid-filled colon possibly secondary to ileus/enteritis and diffuse thickening of the Left lateral wall of the bladder She had corresponding ultrasound that also showed multiple stones in the common bile duct with common bile duct diameter of 16.5 mm. FOR[facility]LY [facility] Medical History ESBL (extended spectrum beta-lactamase) producing bacteria infection On tube feeding diet History of Clostridium difficile infection MRSA infection Redness of skin Bladder disease History of renal disease Seizures Dietary restriction On home oxygen therapy Non-smoker Renal calculi Skin tag of vaginal mucosa Renal calculus or stone PICC (peripherally inserted central catheter) in place Bedbound Pancreatitis Kidney stones Ventilator dependent Urinary tract infection due to extended-spectrum beta lactamase (ESBL) producing Escherichia coli Recurrent UTI Staghorn renal calculus Diabetes Chronic respiratory failure Allergic rhinitis due to other allergen Paraplegia Visual disturbance Amenorrhea Neuromuscular scoliosis Hyperglycemia Vitamin D deficiency Respiratory acidosis Thrush Lactic acid acidosis Bronchitis Irregular menstrual cycle 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 Bronchiectasis without acute exacerbation Severe sepsis Seizure Cerebral palsy Pneumonia Home Medications ?Medication ?Instructions ?Recorded ?Last Taken ?Type baclofen 20 mg tablet 30 mg G-tube TID muscle spas ms 09/02/13 11/02/24 20:30 History oxcarbazepine 300 mg/5 mL (60 8 ml G-tube BID seizure 08/28/17 11/02/24 20:30 History mg/mL) oral suspension (Trileptal) diazepam 5 mg/5 mL (1 mg/mL) oral 5 mg feeding tube DA JANAK@1400 spasms 05/20/21 11/02/24 14:00 History solution diazepam 5 mg/5 mL (1 mg/mL) oral 7 mg feeding tube BI D spasms 05/20/21 11/02/24 20:30 History solution ascorbic acid (vitamin C) 500 mg/5 500 mg feeding tube BID SUPPLEMENT 12/12/21 11/02/24 History mL oral syrup cholecalciferol (vitamin D3) 50 50 mcg feeding tube DA JANAK 12/12/21 11/02/24 History mcg (2,000 unit) capsule SUPPLEMENT ibuprofen 100 mg/5 mL oral 400 mg PO Q6H PRN Pain 04/0 10/0402/24/22 History suspension miconazole nitrate 2 % vaginal 1 appful vaginal DAILY PRN YEAST 12/12/21 1 Week Ago History cream (Monistat 7) ~02/17/22 sodium chloride 0.9 % for 3 - 6 ml inhalation Q2H PRN 12/12/21 02/23/22 History nebulization Congestion levalbuterol HCl 1.25 mg/3 mL 1.25 mg (3 mL) inhalatio n BID 01/16/22 11/02/24 Rx solution for nebulization BREATHING #90 mL acetaminophen 160 mg/5 mL oral 640 mg PO Q4H PRN pain/ fever 03/31/22 Unknown History liquid acidophilus 25 million 1 tab G-tube DAILY supplemen t 03/31/22 11/02/24 History cell-pectin, citrus 100 mg tablet carbamide peroxide 6.5 % ear drops 5 drp EACH EAR ZACHERY Y PRN Ear Wax 03/31/22 Unknown History (Debrox) magnesium hydroxide 400 mg/5 mL 15 - 60 ml PO DAILY MA N 03/31/22 Unknown History oral suspension (Milk of Magnesia) Constipation nystatin 100,000 unit/gram topical 1 applic topical BI D PRN redness 03/31/22 Unknown History powder ferrous sulfate 15 mg iron (75 5 ml feeding tube MOTH supplement 08/24/22 11/02/24 History mg)/mL oral syringe (ORAL USE) docusate sodium 60 mg/15 mL oral 60 mg feeding tube DA JANAK Check 08/29/22 Unknown History syrup with primary doctor nutritional supplements 1 ea PO BID Check with prima ry 08/29/22 Unknown History doctor meropenem 1 gram intravenous 1 g IV Q8 infection 7 day s #21 ea 09/03/22 11/02/24 Rx solution blood sugar diagnostic (True #400 ea 02/23/23 Unknown Rx Metrix Pro Test Strip) cetirizine 5 mg/5 mL oral solution 10 mg (10 mL) PO DA JANAK allergy 03/18/23 11/02/24 Rx symptoms #300 mL fluticasone propionate 44 2 puff inhalation BID Check with 05/23/24 11/02/24 Rx mcg/actuation HFA aerosol inhaler primary doctor #10.6 grams (Flovent HFA) levalbuterol HCl 1.25 mg/3 mL 1.25 mg (3 mL) inhalatio n Q4H PRN 05/23/24 Unknown Rx solution for nebulization sob #150 mL insulin glargine 100 unit/mL (3 20 unit (0.2 mL) subcu t QPM sugar 10/24/24 11/01/24 Rx mL) subcutaneous pen (Basaglar #15 mL KwikPen U-100 Insulin) artificial tears(hypromellose) 0.3 1 drp EACH EYE BID PRN dry eyes 11/02/24 Unknown History % eye gel (GenTeal Tears Severe) bacitracin 500 unit/gram topical 1 applic topical 4X/D AY PRN 11/02/24 Unknown History ointment ABRASIONS guaifenesin 100 mg/5 mL oral liquid 200 mg G-tube Q4H PRN thick 11/02/24 Unknown History secretions honey 80 % topical gel (Manuka 1 applic topical BID MA N wound 11/02/24 Unknown History Honey) healing hydrocortisone 1 % topical cream 1 applic topical 4X/D AY PRN itching 11/02/24 Unknown History (Ala-Brown) methenamine hippurate 1 gram tablet 1 g PO BID infecti on 11/02/24 11/02/24 History wueegivo-kpkv-vtaufrz gluconate 9 5 ml PO DAILY supple ment 11/02/24 11/02/24 History mg iron/15 mL (15 mL) oral liquid (Centrum) potassium chloride 20 mEq/15 mL 10 meq PO DAILY supple ment 11/02/24 11/02/24 History oral liquid sodium chloride 0.9 % topical spray 1 applic topical P RN trach care 11/02/24 Unknown History trolamine salicylate 10 % topical 1 applic topical 4X/ DAY PRN muscle 11/02/24 Unknown History cream (Alcis) pain Novolog FlexPen U-100 Insulin 100 18 unit (0.18 mL) conklin bcut .qid 01/29/25 Unknown Rx unit/mL (3 mL) subcutaneous sugar 90 days #33 mL (insulin aspart U-100) pen needle, diabetic 32 gauge x #360 ea 01/29/25 Unkno wn Rx lancets 30 gauge (Embrace Lancets) #200 ea 02/21/25 Un known Rx blood sugar diagnostic (True #150 ea 04/03/25 Unknown Rx Metrix Glucose Test Strip) lancets 33 gauge (OneTouch Delica #200 ea 04/17/25 Unk nown Rx Plus Lancet) lancing device with lancets kit #1 ea 04/17/25 Unknown Rx (OneTouch Delica Plus Lancing Device kit) nut.tx impaired digest-fiber 14.8 ea feeding tube .qid feeding 04/30/25 Unknown History gram-472 kcal/100 gram oral powder (Neocate Rell With Prebiotics) Allergy/AdvReac Type Severity Reaction Status Date / Time linezolid Allergy Severe Other - Verified 04/29/25 19:53 seizure & coma vancomycin Allergy Severe Other - Verified 04/29/25 19:53 kidney failure tobramycin Allergy Intermediate Other - Verified 04/29/25 19:53 turned beet red nafcillin Allergy Mild Rash Verified 04/29/25 19:53 benzoin Allergy Unknown Rash Verified 04/29/25 19:53 milk Allergy Unknown Other Verified 04/29/25 19:53 soy Allergy Unknown Other Verified 04/29/25 19:53 polyethylene glycol 3350 AdvReac Unknown Hives Verified 04/29/25 19:53 (From Miralax) Family History Grandmother Cancer maternal Other Adopted Surgical History Presence of intrathecal baclofen pump Gastrostomy tube in place Status post Jorje fundoplication H/O spinal fusion rods to back surgery on gland under tongue eyes straightened derotatox ostomies tendonatomies Tracheostomy status Social History household members: other details: Mother and is vent dependent housing: house Smoking Status: Never smoker second hand exposure: No alcohol intake: never substance use type: does not use ROS ROS Narrative ROS was not possible as patient is nonverbal at baseline. Physical Exam Narrative Seen and examined. Physical exam General: Alert,, cooperative. Orientation cannot be ascertained. Short stature. BMI 24.3 kg/m?, height 4 feet 7 inch HEENT: Tracheal collar connected to the vent. On 4 L of oxygen Oral: Thick tongue. Neck: Neck contracture laying on the left side. Chest wall/Lungs: Air entry diminished but equal in bilateral lung bases. No crepitation/rhonchi Cardiovascular: Regular rate and rhythm, Normal S1,S2, No M/G/R Abdomen: Bowel Sounds Present, Soft, Non Tender, PEG tube. : On diaper. No renal angle tenderness. No suprapubic tenderness. Extremities: No edema, Capillary Refill Less than 3 Seconds Skin: No rashes, No breakdown Musculoskeletal: Contracture of lower extremities. Bedbound. Spine: Thoracic spine surgery with angelo. Neurological: History of CP. Developmental and cognitive deficit. Nonverbal. Psych/Mental Status: Flat affect Lab / Micro Data 04/30/25 03:35 04/30/25 03:35 Labs: Laboratory Results - last 24 hr 04/29/25 21:20: WBC 11.9 H, RBC 3.70 L, Hgb 12.0, Hct 34.3 L, MCV 92.7, MCH 32.4 H, MCHC 35.0, RDW Std Deviation 42.4, RDW Coeff of Anne 12.4, Plt Count 182, MPV 10.4, Immature Gran % (Auto) 0.800, Neut % (Auto) 76.9 H, Lymph % (Auto) 10.1 L, Camp % (Auto) 11.4 H, Eos % (Auto) 0.5, Baso % (Auto) 0.3, Absolute Neuts (auto) 9.2 H, Absolute Lymphs (auto) 1.20, Nucleated RBC % 0, Platelet Estimate ADEQUATE, RBC Morphology NORM C+C, Sodium 131 L, Potassium 3.8, Chloride 93 L, Carbon Dioxide 25.8, Anion Gap 13, BUN 8, Creatinine 0.36 L, Estim Creat Clear Calc 156.67, Est GFR (MDRD) Non-Af 135, BUN/Creatinine Ratio 23.1 H, Glucose 153 H, Calcium 9.6, Total Bilirubin 0.26, AST 35 H, ALT 27, Alkaline Phosphatase 78, Total Protein 7.3, Albumin 4.0, Globulin 3.3, Albumin/Globulin Ratio 1.2, Lipase 31 04/29/25 21:35: Lactic Acid 1.7 04/29/25 22:03: Urine Color Straw, Urine Clarity Cloudy, Urine pH 7.0, Ur Specific [place] 1.010, Urine Protein 30 H, Urine Glucose (UA) 250 H, Urine Ketones Negative, Urine Occult Blood 25 H, Urine Nitrite Positive H, Urine Bilirubin Negative, Urine Urobilinogen Normal, Ur Leukocyte Esterase 500 H, Urine RBC 0-5 SEEN, Urine WBC 50-100 SEEN, Ur Squamous Epith Cells 0-5 SEEN, Urine Bacteria 4+, Urine Mucus 0 SEEN 04/29/25 23:22: PT 14.6, INR 1.1, APTT 28.0 04/30/25 02:45: Lactic Acid < 1.0, Magnesium 1.4 L, TSH 2.040 04/30/25 03:35: WBC 12.1 H, RBC 3.32 L, Hgb 10.7 L, Hct 31.5 L, MCV 94.9, MCH 32.2 H, MCHC 34.0, RDW Std Deviation 43.1, RDW Coeff of Anne 12.4, Plt Count 193, MPV 10.3, Immature Gran % (Auto) 0.400, Neut % (Auto) 76.6 H, Lymph % (Auto) 10.0 L, Camp % (Auto) 12.1 H, Eos % (Auto) 0.7, Baso % (Auto) 0.2, Absolute Neuts (auto) 9.3 H, Absolute Lymphs (auto) 1.21, Nucleated RBC % 0, Sodium 134, Potassium 3.4, Chloride 98, Carbon Dioxide 24.1, Anion Gap 12, BUN 7, Creatinine 0.24 L, Estim Creat Clear Calc 235.00, Est GFR (MDRD) Non-Af 150, BUN/Creatinine Ratio 27.7 H, Glucose 119 H, Hemoglobin A1c 5.1, Calcium 8.7, Phosphorus 2.9, Total Bilirubin 0.29, AST 19, ALT 19, Alkaline Phosphatase 65, Total Protein 6.5, Albumin 3.6, Globulin 2.9, Albumin/Globulin Ratio 1.2, Triglycerides 88, Cholesterol 121, LDL Cholesterol, Calc 68, VLDL Cholesterol 18, HDL Cholesterol 36 L, Cholesterol/HDL Ratio 3.39 04/30/25 05:30: POC Glucose 115 H 04/30/25 13:06: POC Glucose 86 Micro: Microbiology 04/30/25 03:43 Nasal Secretion MRSA (PCR) - Final 04/29/25 22:03 Urine Catheter - Catheter Urine Culture - Preliminary GNR lactose fell cutter 04/29/25 22:03 Urine Catheter - Catheter Legionella Antigen - Final 04/29/25 22:03 Urine Catheter - Catheter Streptococcus pneumoniae Antigen (M - Final 04/29/25 22:03 Mucosa - Nose SARS-CoV-2, Influenza & RSV (PCR) - Final Imaging Radiology Impression Chest/Abdomen/Pelvis CT 04/29/25 21:06 IMPRESSION: Increased bilateral basilar airspace disease/consolidations of the lower lobes, possibly multifocal pneumonia. Midline tracheostomy tube is in good position. Unremarkable spinal metallic hardware. Bilateral nonobstructing renal stones with the largest measuring 8 mm on the right side. Percutaneous gastrostomy tube is in good position. Moderate gastroparesis. Right ovarian cyst measuring 4.7 cm in the interim. Two nonobstructing stones are noted layering in the posterior/dependent aspect of the bladder in the interim with the largest measuring 5 mm. Diffuse thickening of the left lateral wall of the bladder. Fluid-filled colon, possibly secondary to ileus/enteritis. Suspected gallstones. Dilated common bile duct. Suspected radiolucent stone in the distal aspect of the common bile duct. [id number] Gall[facility]ound 04/30/25 06:00 IMPRESSION: Hepatomegaly and diffuse fatty infiltration of the liver. Solitary gallstone with stones seen in the common bile duct in the cystic duct. Common bile duct is dilated measuring 16.8 mm. Reading Location: [id number] Assessment & Plan Assessment/Plan (1) Choledocholithiasis: PLAN: Patient will undergo therapeutic ERCP. The patient's mother was explained alternatives, benefits, risk including not withstanding bleeding, infection, sepsis, perforation, need for discharge and . She will have an ASA of 3. Charges/Coding Visit Charges Inpatient E&M: 38942 Init Hosp L3
--- NOTE | 2025-04-30 16:45 | RAD_ITS ---
PROCEDURE: ERCP BILIARY/PANCREAS 04/30/2025 REASON FOR EXAM: ERCP TECHNIQUE: ERCP BILIARY/PANCREAS COMPARISON: 04/30/2025. FINDINGS: Fluoroscopy was performed for an ERCP. 87.9 seconds of fluoroscopic time. 20.46 mGy. See procedure report for full details. RAD/ERCP Biliary/Pancreas IMPRESSION: As above. Reading Location: [id number]
[2025-04-30] MEDS: 0.9% Normal Saline (1000mL) 200 ML IV (16:52)
--- NOTE | 2025-04-30 16:57 | PCM.PN.HOSP ---
Reason for Visit Chief Complaint: Fever and Dysuria. Objective Data Objective Data Vital Signs: Vital Signs Temp Pulse Resp BP Pulse Ox O2 Del Method O2 Flow Rate 99.5 F H 76 25 H 100/64 100 Mechanical Ventilator 4 04/30/25 04:00 04/30/25 07:00 04/30/25 07:00 04/30/25 07:00 04/30/25 07:00 04/30/25 07:00 04/30/25 07:00 Oxygen Flow Rate (L/min) 4 Oxygen Delivery Method Mechanical Ventilator Weight: 104 lb 7.986 oz Body Mass Index (BMI) 24.3 Intake & Output: Intake and Output for Last 24 Hours 04/28/25 04/29/25 04/30/25 23:59 23:59 23:59 Intake Total 1104 / 1104 Balance 1104 / 1104 Lab / Micro Data 04/30/25 03:35 04/30/25 03:35 Labs: Laboratory Results - last 24 hr 04/29/25 21:20: WBC 11.9 H, RBC 3.70 L, Hgb 12.0, Hct 34.3 L, MCV 92.7, MCH 32.4 H, MCHC 35.0, RDW Std Deviation 42.4, RDW Coeff of Anne 12.4, Plt Count 182, MPV 10.4, Immature Gran % (Auto) 0.800, Neut % (Auto) 76.9 H, Lymph % (Auto) 10.1 L, [place] % (Auto) 11.4 H, Eos % (Auto) 0.5, Baso % (Auto) 0.3, Absolute Neuts (auto) 9.2 H, Absolute Lymphs (auto) 1.20, Nucleated RBC % 0, Platelet Estimate ADEQUATE, RBC Morphology NORM C+C, Sodium 131 L, Potassium 3.8, Chloride 93 L, Carbon Dioxide 25.8, Anion Gap 13, BUN 8, Creatinine 0.36 L, Estim Creat Clear Calc 156.67, Est GFR (MDRD) Non-Af 135, BUN/Creatinine Ratio 23.1 H, Glucose 153 H, Calcium 9.6, Total Bilirubin 0.26, AST 35 H, ALT 27, Alkaline Phosphatase 78, Total Protein 7.3, Albumin 4.0, Globulin 3.3, Albumin/Globulin Ratio 1.2, Lipase 31 04/29/25 21:35: Lactic Acid 1.7 04/29/25 22:03: Urine Color Straw, Urine Clarity Cloudy, Urine pH 7.0, Ur Specific [place] 1.010, Urine Protein 30 H, Urine Glucose (UA) 250 H, Urine Ketones Negative, Urine Occult Blood 25 H, Urine Nitrite Positive H, Urine Bilirubin Negative, Urine Urobilinogen Normal, Ur Leukocyte Esterase 500 H, Urine RBC 0-5 SEEN, Urine WBC 50-100 SEEN, Ur Squamous Epith Cells 0-5 SEEN, Urine Bacteria 4+, Urine Mucus 0 SEEN 04/29/25 23:22: PT 14.6, INR 1.1, APTT 28.0 04/30/25 02:45: Lactic Acid < 1.0, Magnesium 1.4 L, TSH 2.040 04/30/25 03:35: WBC 12.1 H, RBC 3.32 L, Hgb 10.7 L, Hct 31.5 L, MCV 94.9, MCH 32.2 H, MCHC 34.0, RDW Std Deviation 43.1, RDW Coeff of Anne 12.4, Plt Count 193, MPV 10.3, Immature Gran % (Auto) 0.400, Neut % (Auto) 76.6 H, Lymph % (Auto) 10.0 L, [place] % (Auto) 12.1 H, Eos % (Auto) 0.7, Baso % (Auto) 0.2, Absolute Neuts (auto) 9.3 H, Absolute Lymphs (auto) 1.21, Nucleated RBC % 0, Sodium 134, Potassium 3.4, Chloride 98, Carbon Dioxide 24.1, Anion Gap 12, BUN 7, Creatinine 0.24 L, Estim Creat Clear Calc 235.00, Est GFR (MDRD) Non-Af 150, BUN/Creatinine Ratio 27.7 H, Glucose 119 H, Hemoglobin A1c 5.1, Calcium 8.7, Phosphorus 2.9, Total Bilirubin 0.29, AST 19, ALT 19, Alkaline Phosphatase 65, Total Protein 6.5, Albumin 3.6, Globulin 2.9, Albumin/Globulin Ratio 1.2, Triglycerides 88, Cholesterol 121, LDL Cholesterol, Calc 68, VLDL Cholesterol 18, HDL Cholesterol 36 L, Cholesterol/HDL Ratio 3.39 04/30/25 05:30: POC Glucose 115 H Micro: Microbiology 04/29/25 22:03 Urine Catheter - Catheter Legionella Antigen - Final 04/29/25 22:03 Urine Catheter - Catheter Streptococcus pneumoniae Antigen (M - Final 04/29/25 22:03 Mucosa - Nose SARS-CoV-2, Influenza & RSV (PCR) - Final Radiography Diagnostic Testing: Radiology Impression Chest/Abdomen/Pelvis CT 04/29/25 21:06 IMPRESSION: Increased bilateral basilar airspace disease/consolidations of the lower lobes, possibly multifocal pneumonia. Midline tracheostomy tube is in good position. Unremarkable spinal metallic hardware. Bilateral nonobstructing renal stones with the largest measuring 8 mm on the right side. Percutaneous gastrostomy tube is in good position. Moderate gastroparesis. Right ovarian cyst measuring 4.7 cm in the interim. Two nonobstructing stones are noted layering in the posterior/dependent aspect of the bladder in the interim with the largest measuring 5 mm. Diffuse thickening of the left lateral wall of the bladder. Fluid-filled colon, possibly secondary to ileus/enteritis. Suspected gallstones. Dilated common bile duct. Suspected radiolucent stone in the distal aspect of the common bile duct. Reading Location: [place] [id number] Physical Exam Narrative Seen and examined. Discussed in detail with patient's father At the bedside. Temperature 99.5 ?F. Heart rate 80 pulmonary. Patient was admitted with fever. There was increased secretions from tracheostomy. Patient's gives history by smiling as yes and lower lip straightening for no Physical exam General: Alert,, cooperative. Orientation cannot be ascertained. Short stature. BMI 24.3 kg/m?, height 4 feet 7 inch HEENT: Tracheal collar connected to the vent. On 4 L of oxygen Oral: Thick tongue. Neck: Neck contracture laying on the left side. Chest wall/Lungs: Air entry diminished but equal in bilateral lung bases. No crepitation/rhonchi Cardiovascular: Regular rate and rhythm, Normal S1,S2, No M/G/R Abdomen: Bowel Sounds Present, Soft, Non Tender, PEG tube. : On diaper. No renal angle tenderness. No suprapubic tenderness. Extremities: No edema, Capillary Refill Less than 3 Seconds Skin: No rashes, No breakdown Musculoskeletal: Contracture of lower extremities. Bedbound. Spine: Thoracic spine surgery with angelo. Neurological: History of CP. Developmental and cognitive deficit. Nonverbal. Psych/Mental Status: Flat affect Assessment & Plan Assessment/Plan (1) Multifocal pneumonia: (2) Choledocholithiasis: (3) Acute cystitis without hematuria: (4) History of ESBL E. coli infection: (5) Diarrhea: QUALIFIERS: Diarrhea type: presumed infectious Qualified Code(s): R19.7 - Diarrhea, unspecified (6) History of Clostridium difficile colitis: (7) Leukocytosis: QUALIFIERS: Leukocytosis type: unspecified Qualified Code(s): D72.829 - Elevated white blood cell count, unspecified (8) Fever: QUALIFIERS: Fever type: unspecified Qualified Code(s): R50.9 - Fever, unspecified (9) Hypomagnesemia: (10) History of cerebral palsy: (11) Ventilator dependence: (12) Chronic respiratory failure: QUALIFIERS: Respiratory failure complication: hypoxia Qualified Code(s): J96.11 - Chronic respiratory failure with hypoxia (13) Seizure: (14) Neuromuscular scoliosis: QUALIFIERS: Spinal region: unspecified Qualified Code(s): M41.40 - Neuromuscular scoliosis, site unspecified (15) Obesity (BMI 30-39.9): PLAN: Plan 35-year-old female with history of cerebral palsy, nonverbal, tracheomalacia, trach collar on chronic ventilation was admitted with fever with increased secretions. No vomiting as per her mother who is primary caregiver. She noted more loose stools in the last week. Tmax 102.5 Fahrenheit yesterday. Temperature 100 Fahrenheit after Tylenol at 3 PM yesterday. She had history of ESBL UTI in the past. History of previous C. difficile. Patient required removal of kidney stones by Dr. Anaya in the past. No ureteral stents. 1. Complicated multifocal bilateral pneumonia with chronic history of bilateral kidney stone, gallbladder stone. CT abdomen shows multifocal, increased bilateral basilar airspace disease/consolidation of the lower lobes. It also shows bilateral kidney stones which are nonobstructive measuring 8 mm on the right side. Moderate gastroparesis. 2 nonobstructing stone in the dependent portion of GB largest 5 mm. Fluid-filled colon. Diffuse thickening of the left lateral wall of bladder. Dilated CBD. Patient had admitted in the past with history of pneumonia and bronchiectasis in the past and staghorn calculus. The patient is being admitted to ICU. Patient started on IV meropenem. ID consulted. PICC line placement ordered. Previous CT abdomen showed mild GB distended and intra and extrahepatic biliary dilatation in [address] abdomen showed normal intra and extrahepatic biliary system. Patient does not have pain or tenderness over right upper quadrant. GI recommended therapeutic ERCP with explained risks, complications and benefits. 2. Hypomagnesemia of 1.4 mg/dL present on admission - Give supplemental magnesium sulfate 2g IV once and then recheck level to confirm repletion. 3. Spastic hemiplegic cerebral palsy; with paraplegia and patient nonverbal at baseline in the setting of a history of tracheomalacia; s/p tracheostomy and PEG with patient on chronic ventilator at home, bedbound, functional quadriplegia 4. Seizure disorder; on oxcarbazepine BID - Stable with no reports of recent seizure activity. 5. History of neuromuscular sclerosis with muscle spasms; on baclofen TID and diazepam BID adding to the medical complexity of #1 - #4 - Stable on current therapy. 6. Obesity; with BMI of 36.8 this admission adding to the burden of disease outlined from #1 - #5 - Weight loss will be recommended. Check TSH. This complicates her case and may hamper recovery. 7 DM-2; on insulin glargine 20U sq q. PM plus novolog 18U sq QID - Keep NPO for now. FSBS q. 6 hours plus lowest-intensity SSI. Check HgbA1c to objectively assess quality of diabetic control. DVT/GI prophylaxis - SCD's only with possible impending ERCP. Pantoprazole 40 mg IV daily. Charges/Coding Visit Charges Inpatient E&M: 02433 Subs Hosp L3
--- NOTE | 2025-04-30 17:25 | OP.ERCP_ITS ---
Patient Name: Lesa Montero Procedure Date: 04/30/2025 4:26 PM Date of : 1990 Age: 35 Procedure: ERCP Indications: Common bile duct stone(s), Bile duct stone(s), Suspected ascending cholangitis, Elevated liver enzymes Providers: Amol Gay DO Medicines: Monitored Anesthesia Care Patient Profile: This is a 35 year old female. Refer to note in patient chart for documentation of history and physical. Patient has symptoms. This patient has no history of previous ERCP. This patient has no history of surgical alteration of the upper digestive tract anatomy. Patient has symptoms of acute abdominal distention, acute right upper quadrant abdominal pain, acute nausea and acute vomiting. Complications: No immediate complications. Procedure: Pre-Anesthesia Assessment: - Prior to the procedure, a History and Physical was performed, and patient medications and allergies were reviewed. The patient is competent. The risks and benefits of the procedure and the sedation options and risks were discussed with the patient. All questions were answered and informed consent was obtained. Patient identification and proposed procedure were verified by the physician in the pre-procedure area. Mental Status Examination: alert and oriented. Airway Examination: normal oropharyngeal airway and neck mobility. Respiratory Examination: clear to auscultation. CV Examination: normal. Prophylactic Antibiotics: The patient does not require prophylactic antibiotics. Prior Anticoagulants: The patient has taken no anticoagulant or antiplatelet agents. ASA Grade Assessment: II - A patient with mild systemic disease. After reviewing the risks and benefits, the patient was deemed in satisfactory condition to undergo the procedure. The anesthesia plan was to use monitored anesthesia care (MAC). Immediately prior to administration of medications, the patient was re-assessed for adequacy to receive sedatives. The heart rate, respiratory rate, oxygen saturations, blood pressure, adequacy of pulmonary ventilation, and response to care were monitored throughout the procedure. The physical status of the patient was re-assessed after the procedure. After obtaining informed consent, the scope was passed under direct vision. Throughout the procedure, the patient's blood pressure, pulse, and oxygen saturations were monitored continuously. The Duodenoscope was introduced through the mouth, and advanced to the duodenum and used to inject contrast into the bile duct. The ERCP was accomplished without difficulty. The patient tolerated the procedure well. Scope In: 4:50:03 PM Scope Out: 5:13:06 PM Total Procedure Duration Time 0 hours 23 minutes 3 seconds Findings: The vp production film was normal. The esophagus was successfully intubated under direct vision. The scope was advanced to a normal major papilla in the descending duodenum without detailed examination of the pharynx, larynx and associated structures, and upper GI tract. The upper GI tract was grossly normal. The bile duct was deeply cannulated with the short-nosed traction sphincterotome. Contrast was injected. I personally interpreted the bile duct images. There was brisk flow of contrast through the ducts. Image quality was adequate. Contrast extended to the entire biliary tree. Opacification of the entire opacified area, main bile duct, common bile duct, cystic duct, gallbladder, common hepatic duct, hepatic duct bifurcation, left and right hepatic ducts and all intrahepatic branches and entire biliary tree was successful. The maximum diameter of the ducts was 20 mm. The lower third of the main bile duct contained a single localized stenosis 6 mm in length. A long 0.025 inch Jagwire was passed into the biliary tree. A 5 mm biliary sphincterotomy was made with a traction (standard) sphincterotome using ERBE electrocautery. Moderate bleeding from the sphincterotomy stopped within 5 minutes. The biliary tree was swept with a 12 mm balloon starting at the upper third of the main bile duct, middle third of the main bile duct, lower third of the main duct, cystic duct, bifurcation, left intrahepatic duct(s), left main hepatic duct, right intrahepatic duct(s) and right main hepatic duct. Sludge was swept from the duct. All stones were removed. The lower third of the main bile duct was successfully dilated with a 10-11-12 mm balloon (to a maximum balloon size of 12 mm) dilator. The upper GI tract was traversed under direct vision without detailed examination. A benign-appearing, intrinsic severe stenosis was found at the pylorus. This was traversed. A TTS dilator was passed through the scope. Dilation with a 15 mm pyloric balloon dilator was performed under fluoroscopic guidance at the pylorus. Impression: - Gastric stenosis was found at the pylorus. - Dilation performed at the pylorus. - A single localized biliary stricture was found in the lower third of the main bile duct. The stricture was benign appearing. - Choledocholithiasis was found. Complete removal was accomplished by biliary sphincterotomy and balloon extraction. - A biliary sphincterotomy was performed. - The biliary tree was swept. - The lower third of the main bile duct was successfully dilated. Procedure Code(s): --- Professional --- 84533, 59, Endoscopic retrograde cholangiopancreatography (ERCP); with trans-endoscopic balloon dilation of biliary/pancreatic duct(s) or of ampulla (sphincteroplasty), including sphincterotomy, when performed, each duct 68325, Endoscopic retrograde cholangiopancreatography (ERCP); with removal of calculi/debris from biliary/pancreatic duct(s) 18584, 51, Esophagogastroduodenoscopy, flexible, transoral; with dilation of gastric/duodenal stricture(s) (eg, balloon, bougie) 54344, 26,59, Intraluminal dilation of strictures and/or obstructions (eg, esophagus), radiological supervision and interpretation 49544, 26, Endoscopic catheterization of the biliary ductal system, radiological supervision and interpretation CPT copyright 2021 [employer]. All rights reserved. The codes documented in this report are preliminary and upon personal fitness trainer review may be revised to meet current compliance requirements. Amol Gay DO 04/30/2025 5:25:09 PM This report has been signed electronically. Number of Addenda: 0 Note Initiated On: 04/30/2025 4:26 PM
--- NOTE | 2025-04-30 17:25 | OP.PROVAT_ITS ---
04/30/2025 Sandra Bermudez [address] [place] [address] Re : ERCP procedure for Lesa Montero Dear Dr. Bermudez This procedure was performed on Wednesday, April 30, 2025. My impressions and recommendations are as follows: Impressions : - Gastric stenosis was found at the pylorus. - Dilation performed at the pylorus. - A single localized biliary stricture was found in the lower third of the main bile duct. The stricture was benign appearing. - Choledocholithiasis was found. Complete removal was accomplished by biliary sphincterotomy and balloon extraction. - A biliary sphincterotomy was performed. - The biliary tree was swept. - The lower third of the main bile duct was successfully dilated. Recommendations : My findings are described in the full procedure note, which is enclosed. If I can be of further assistance, please feel free to contact me at . Sincerely, Amol Gay, 04/30/2025 5:25:09 PM This report has been signed electronically.
--- NOTE | 2025-04-30 17:38 | PCM.POST.ANE ---
Anesthesia: Postop Eval I Current Vital Signs Temperature: 97.5 F Pulse Rate: 86 Blood Pressure: 137/98 Respiratory Rate: 14 Pulse Ox: 100 Oxygen Delivery Method: Mechanical Ventilator (Back to base ventilator settings on her own ventilator.) Assessment Airway patent: Yes Spontaneous unlabored respirations: No Mental status: Awake and Calm nausea: No Vomiting: No Anesthesia Complication: No Fluid Hydration Crystalloid volume administer (ml): 200 Total IV fluid infused: 200 Progress Note Anesthesia document: Postop Eval 1 completed: Yes
--- NOTE | 2025-04-30 21:03 | PCM.POSTANE2 ---
Anesthesia Postop Eval I Sum Postop Eval Completion status Anesthesia document: Postop Eval 1 completed: Yes Anesthesia Postop Eval I Summary Anesthesia Postop Eval I Summary: Anesthesia Postop Eval I: Assessment Summary Airway patent Yes 04/30/25 17:42 Spontaneous unlabored No 04/30/25 17:42 respirations Mental status Awake,Calm 04/30/25 17:42 nausea No 04/30/25 17:42 Vomiting No 04/30/25 17:42 Anesthesia Postop Eval I: Fluid Summary Crystalloid volume administer 200 04/30/25 17:42 (ml) Colloids volume administered ( ml) Blood Product volume administered (ml) Total IV fluid infused 200 04/30/25 17:42 Anesthesia Postop Eval I: Summary Notes Anesthesia Complication No 04/30/25 17:42 Anesthesia Complication Comment: Post-operative progress note Anesthesia: Postop Eval II Evaluation Mental status: Awake Pain Level: 1 nausea: No Vomiting: No Progress Note Post-operative progress note: Patient is non verbal. Not really able to assess pain or nausea. Complications Anesthesia Complication: No
[2025-04-30] MEDS: Insulin Glargine-YFGN 100 UNIT/ML Pen 12 UNIT SC (21:34)
[2025-04-30] MEDS: DIAZEPAM 5 MG/5 ML 7 MG GT (21:50)
--- NOTE | 2025-04-30 22:35 | PCMCONS.TICU ---
HPI Consult Data Date of Consult: 04/30/25 HPI Narrative Reason for Consultation: Chronic Vent HPI Narrative: This is a 35y/o F admitted to the ICU for sepsis, and chronic respiratory failure on h one vent. She has history of cerebral palsy, non-verbal, s/p trach/peg, ESBL UTIs, prior C diff infection, lithotripsy, pancreatitis, DM, seizures. She was brought to the ED just after midnight 04/30 for fever. Work up reveal UTI, possible pneumonia, choledocholithiasis. She was initiated on abx per ID (Merrem) and underwent ERCP and was found to have gastric stenosis, biliary stricture and choledocholithiasis. She underwent dilation at pylorus, biliary sphincterotomy and balloon extraction and biliary tree was swept and bile duct dilated. Currently father reports she is doing well, stable vent settings with minimal secretions and able to tolerate bolus TF this evening. [facility] Medical History ESBL (extended spectrum beta-lactamase) producing bacteria infection On tube feeding diet History of Clostridium difficile infection MRSA infection Redness of skin Bladder disease History of renal disease Seizures Dietary restriction On home oxygen therapy Non-smoker Renal calculi Skin tag of vaginal mucosa Renal calculus or stone PICC (peripherally inserted central catheter) in place Bedbound Pancreatitis Kidney stones Ventilator dependent Urinary tract infection due to extended-spectrum beta lactamase (ESBL) producing Escherichia coli Recurrent UTI Staghorn renal calculus Diabetes Chronic respiratory failure Allergic rhinitis due to other allergen Paraplegia Visual disturbance Amenorrhea Neuromuscular scoliosis Hyperglycemia Vitamin D deficiency Respiratory acidosis Thrush Lactic acid acidosis Bronchitis Irregular menstrual cycle 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 Bronchiectasis without acute exacerbation Severe sepsis Seizure Cerebral palsy Pneumonia Home Medications ?Medication ?Instructions ?Recorded ?Last Taken ?Type baclofen 20 mg tablet 30 mg G-tube TID muscle spasms 09/02/13 11/02/24 20:30 History oxcarbazepine 300 mg/5 mL (60 8 ml G-tube BID seizure 08/28/17 11/02/24 20:30 History mg/mL) oral suspension (Trileptal) diazepam 5 mg/5 mL (1 mg/mL) oral 5 mg feeding tube DAILY@1400 spasms 05/20/21 11/02/24 14:00 History solution diazepam 5 mg/5 mL (1 mg/mL) oral 7 mg feeding tube BID spasms 05/20/21 11/02/24 20:30 History solution ascorbic acid (vitamin C) 500 mg/5 500 mg feeding tube BID SUPPLEMENT 12/12/21 11/02/24 History mL oral syrup cholecalciferol (vitamin D3) 50 50 mcg feeding tube DAILY 12/12/21 11/02/24 History mcg (2,000 unit) capsule SUPPLEMENT ibuprofen 100 mg/5 mL oral 400 mg PO Q6H PRN Pain 12/12/21 02/24/22 History suspension miconazole nitrate 2 % vaginal 1 appful vaginal DAILY PRN YEAST 12/12/21 1 Week Ago History cream (Monistat 7) ~02/17/22 sodium chloride 0.9 % for 3 - 6 ml inhalation Q2H PRN 12/12/21 02/23/22 History nebulization Congestion levalbuterol HCl 1.25 mg/3 mL 1.25 mg (3 mL) inhalation BID 01/16/22 11/02/24 Rx solution for nebulization BREATHING #90 mL acetaminophen 160 mg/5 mL oral 640 mg PO Q4H PRN pain/fever 03/31/22 Unknown History liquid acidophilus 25 million 1 tab G-tube DAILY supplement 03/31/22 11/02/24 History cell-pectin, citrus 100 mg tablet carbamide peroxide 6.5 % ear drops 5 drp EACH EAR DAILY PRN Ear Wax 03/31/22 Unknown History (Debrox) magnesium hydroxide 400 mg/5 mL 15 - 60 ml PO DAILY PRN 03/31/22 Unknown History oral suspension (Milk of Magnesia) Constipation nystatin 100,000 unit/gram topical 1 applic topical BID PRN redness 03/31/22 Unknown History powder ferrous sulfate 15 mg iron (75 5 ml feeding tube MOTH supplement 08/24/22 11/02/24 History mg)/mL oral syringe (ORAL USE) docusate sodium 60 mg/15 mL oral 60 mg feeding tube DAILY Check 08/29/22 Unknown History syrup with primary doctor nutritional supplements 1 ea PO BID Check with primary 08/29/22 Unknown History doctor meropenem 1 gram intravenous 1 g IV Q8 infection 7 days #21 ea 09/03/22 11/02/24 Rx solution blood sugar diagnostic (True #400 ea 02/23/23 Unknown Rx Metrix Pro Test Strip) cetirizine 5 mg/5 mL oral solution 10 mg (10 mL) PO DAILY allergy 03/18/23 11/02/24 Rx symptoms #300 mL fluticasone propionate 44 2 puff inhalation BID Check with 05/23/24 11/02/24 Rx mcg/actuation HFA aerosol inhaler primary doctor #10.6 grams (Flovent HFA) levalbuterol HCl 1.25 mg/3 mL 1.25 mg (3 mL) inhalation Q4H PRN 05/23/24 Unknown Rx solution for nebulization sob #150 mL insulin glargine 100 unit/mL (3 20 unit (0.2 mL) subcut QPM sugar 10/24/24 11/01/24 Rx mL) subcutaneous pen (Basaglar #15 mL KwikPen U-100 Insulin) artificial tears(hypromellose) 0.3 1 drp EACH EYE BID PRN dry eyes 11/02/24 Unknown History % eye gel (GenTeal Tears Severe) bacitracin 500 unit/gram topical 1 applic topical 4X/DAY PRN 11/02/24 Unknown History ointment ABRASIONS guaifenesin 100 mg/5 mL oral liquid 200 mg G-tube Q4H PRN thick 11/02/24 Unknown History secretions honey 80 % topical gel (Manuka 1 applic topical BID PRN wound 11/02/24 Unknown History Honey) healing hydrocortisone 1 % topical cream 1 applic topical 4X/DAY PRN itching 11/02/24 Unknown History (Ala-Brown) methenamine hippurate 1 gram tablet 1 g PO BID infection 11/02/24 11/02/24 History ewsorkeh-kzcf-vcuviuh gluconate 9 5 ml PO DAILY supplement 11/02/24 11/02/24 History mg iron/15 mL (15 mL) oral liquid (Centrum) potassium chloride 20 mEq/15 mL 10 meq PO DAILY supplement 11/02/24 11/02/24 History oral liquid sodium chloride 0.9 % topical spray 1 applic topical PRN trach care 11/02/24 Unknown History trolamine salicylate 10 % topical 1 applic topical 4X/DAY PRN muscle 11/02/24 Unknown History cream (Alcis) pain Novolog FlexPen U-100 Insulin 100 18 unit (0.18 mL) subcut .qid 01/29/25 Unknown Rx unit/mL (3 mL) subcutaneous sugar 90 days #33 mL (insulin aspart U-100) pen needle, diabetic 32 gauge x #360 ea 01/29/25 Unknown Rx lancets 30 gauge (Embrace Lancets) #200 ea 02/21/25 Unknown Rx blood sugar diagnostic (True #150 ea 04/03/25 Unknown Rx Metrix Glucose Test Strip) lancets 33 gauge (OneTouch Delica #200 ea 04/17/25 Unknown Rx Plus Lancet) lancing device with lancets kit #1 ea 04/17/25 Unknown Rx (OneTouch Delica Plus Lancing Device kit) nut.tx impaired digest-fiber 14.8 ea feeding tube .qid feeding 04/30/25 Unknown History gram-472 kcal/100 gram oral powder (Neocate Rell With Prebiotics) Allergy/AdvReac Type Severity Reaction Status Date / Time linezolid Allergy Severe Other - Verified 04/29/25 19:53 seizure & coma vancomycin Allergy Severe Other - Verified 04/29/25 19:53 kidney failure tobramycin Allergy Intermediate Other - Verified 04/29/25 19:53 turned beet red nafcillin Allergy Mild Rash Verified 04/29/25 19:53 benzoin Allergy Unknown Rash Verified 04/29/25 19:53 milk Allergy Unknown Other Verified 04/29/25 19:53 soy Allergy Unknown Other Verified 04/29/25 19:53 polyethylene glycol 3350 AdvReac Unknown Hives Verified 04/29/25 19:53 (From Miralax) Family History Grandmother Cancer maternal Other Adopted Surgical History Presence of intrathecal baclofen pump Gastrostomy tube in place Status post Jorje fundoplication H/O spinal fusion rods to back surgery on gland under tongue eyes straightened derotatox ostomies tendonatomies Tracheostomy status Social History household members: other details: Mother and is vent dependent housing: house Smoking Status: Never smoker second hand exposure: No alcohol intake: never substance use type: does not use ROS Review of Systems ROS Unobtainable: due to mental status Objective Data Objective Data Vital Signs: Vital Signs Last response Temperature 36.5 C L 04/30/25 18:00 Temperature Source Temporal 04/30/25 18:00 Pulse Rate 83 04/30/25 19:14 Pulse Strength Weak (1+) 04/30/25 10:00 Respiratory Rate 18 04/30/25 19:14 Respiratory Effort Mechanically Ventilated 04/30/25 19:56 Respiratory Depth Normal 04/30/25 19:56 Respiratory Pattern Normal 04/30/25 19:56 Blood Pressure 125/85 H 04/30/25 19:00 Blood Pressure Mean 98 04/30/25 19:00 Blood Pressure Source Monitor 04/30/25 19:00 Blood Pressure Position Supine 04/30/25 19:00 Blood Pressure Location Left Arm 04/30/25 19:00 Baseline BP 131/79 04/30/25 17:50 Pulse Ox 100 04/30/25 19:00 Oxygen Delivery Method Mechanical Ventilator 04/30/25 19:56 Oxygen Flow Rate (L/min) 4 04/30/25 19:56 Fraction of Inspired Oxygen (FIO2) 4 04/30/25 19:00 I&O: I&O Last 24 Hours 04/29/25 04/30/25 04/30/25 23:59 11:59 23:59 Intake Total 2449 / 2649 200 / 2649 Balance 2449 / 2649 200 / 2649 I&O: Total Stay 04/29/25 19:37 thru 04/30/25 21:55 Intake Total 2649 Balance 2649 Current Meds Ordered / Administered: Current meds ordered / Administered Generic Name Dose Route Start Last Admin Trade Name Ronq PRN Reason Stop Dose Admin Albuterol Sulfate 2.5 mg 04/30/25 06:00 04/30/25 19:13 Albuterol 2.5 Mg/3 Ml Vial.Neb. INHALATION 2.5 mg Q6HWA.RT BECKY Administration Bacitracin 1 applic 04/30/25 02:31 Bacitracin 15 Gm Tube TOPICAL 4X/DAY PRN PRN ABRASIONS Baclofen 30 mg 04/30/25 08:30 04/30/25 18:35 Baclofen 10 Mg Tablet GT 30 mg 0830,1400,2000 BECKY Administration Budesonide 0.5 mg 04/30/25 06:00 04/30/25 19:13 Budesonide Respules 0.5 Mg/2 Ml Ampul.Neb. INHALATION 0.5 mg Q12H.RT BECKY Administration Clarify Med Order 0 each 04/30/25 21:15 04/30/25 21:54 Clarify Order NOTE Not Given CLARIFY BECKY Diazepam 7 mg 04/30/25 22:00 04/30/25 21:50 Diazepam 5 Mg/5 Ml Solution GT 7 mg BID@0800,2200 BECKY Administration Diazepam 5 mg 04/30/25 14:00 04/30/25 15:10 Diazepam 5 Mg/5 Ml Solution GT Not Given DAILY@1400 BECKY Diazepam 5 mg 04/30/25 08:30 04/30/25 09:27 Diazepam 5 Mg Tablet GT 5 mg X1 BECKY Administration Diazepam 2 mg 04/30/25 08:30 04/30/25 09:27 Diazepam 2 Mg Tablet GT 2 mg X1 BECKY Administration Glucagon 1 mg 04/30/25 02:31 Glucagon 1 Mg/Ml Syringe IM X1 PRN HYPOGLYCEMIA Protocol Glycerin/Hypromellose/Polyethylene 1 drp 04/30/25 02:31 Glycerin/Hypromellose/Cpx514 15 Ml Bottle EACH EYE BID PRN PRN dry eyes Hydrocortisone 1 applic 04/30/25 02:31 Hydrocortisone 2.5% Crm TOPICAL 4X/DAY PRN PRN itching Pantoprazole Sodium 40 mg/ 100 mls @ 330 mls/hr 04/30/25 02:31 04/30/25 21:55 Sodium Chloride IV Infused 2200 BECKY Infusion Dextrose 250 mls @ 0 mls/hr 04/30/25 02:31 Dextrose 10%-Water IV .Q0M PRN HYPOGLYCEMIA Protocol As Directed Meropenem 1 gm/ Sodium 100 mls @ 33 mls/hr 04/30/25 06:00 04/30/25 21:58 Chloride IV 33 mls/hr Q8 BECKY Administration Sodium Chloride 250 mls @ 15 mls/hr 04/30/25 03:06 IV .[id number] PRN Saline Flush Sodium Chloride 250 mls @ 15 mls/hr 04/30/25 03:06 IV .[id number] PRN Additional IVPB Infusion Insulin Glargine 12 unit 04/30/25 22:00 04/30/25 21:34 Insulin Glargine-Yfgn 100 Unit/Ml Pen SC 12 unit QHS BECKY Administration Insulin Human Lispro 0 unit 04/30/25 06:00 04/30/25 18:29 Insulin Lispro 100 Unit/Ml Insuln.Pen SC Not Given Q6 [facility] Protocol Ketorolac Tromethamine 15 mg 04/30/25 02:31 Ketorolac 15 Mg/Ml Vial IV 05/05/25 02:31 Q8H PRN PRN Pain 1-10 or Fever Miconazole Nitrate 1 applic 04/30/25 02:31 Miconazole-7 Nitrate Cream VAGINAL DAILY PRN YEAST Non-Formulary Medication 1 applic 04/30/25 20:00 04/30/25 21:18 Honey [Manuka Honey] TOPICAL Not Given TID BECKY Non-Formulary Medication 2 drp 04/30/25 02:31 Naphazoline OPHTHALMIC DAILY PRN allergies Non-Formulary Medication 1 applic 04/30/25 02:31 Trolamine Salicylate [Alcis] TOPICAL 4X/DAY PRN muscle pain Non-Formulary Medication 160 ml 04/30/25 18:20 Neocate Rell 4X/DAY [facility] Ondansetron HCl 4 mg 04/30/25 02:31 Ondansetron 4 Mg/2 Ml Vial IV Q6H PRN PRN NAUSEA/VOMITING Oxcarbazepine 480 mg 04/30/25 08:30 04/30/25 18:33 Oxcarbazepine 300 Mg/5 Ml Oral.Susp PO 480 mg 829,1999 [facility] Administration Sodium Chloride 6 ml 04/30/25 02:31 Sodium Cl For Inhalation 3 Ml Vial.Neb. INHALATION Q2H PRN PRN Congestion Sodium Chloride 1 ml 04/30/25 02:31 Sodium Cl For Inhalation 3 Ml Vial.Neb. INHALATION Q1H PRN PRN TRACH CARE Sodium Chloride 10 - 40 ml 04/30/25 03:06 04/30/25 12:57 0.9% Saline Lock 10 Ml Syringe IV 10 ml UD PRN Administration SALINE FLUSH Physical Exam Narrative Gen: Non verbal, comfortable appearing. Father at bedside Neck: Trach CV: S1S2 Pulm: Synced well on vent Abd: Peg Extrem: Contracted Lab / Micro Data 04/30/25 03:35 04/30/25 03:35 Labs: Laboratory Results - last 24 hr 04/29/25 21:20: Lipase 31 04/29/25 23:22: PT 14.6, INR 1.1, APTT 28.0 04/30/25 02:45: Lactic Acid < 1.0, Magnesium 1.4 L, TSH 2.040 04/30/25 03:35: WBC 12.1 H, RBC 3.32 L, Hgb 10.7 L, Hct 31.5 L, MCV 94.9, MCH 32.2 H, MCHC 34.0, RDW Std Deviation 43.1, RDW Coeff of Anne 12.4, Plt Count 193, MPV 10.3, Immature Gran % (Auto) 0.400, Neut % (Auto) 76.6 H, Lymph % (Auto) 10.0 L, [place] % (Auto) 12.1 H, Eos % (Auto) 0.7, Baso % (Auto) 0.2, Absolute Neuts (auto) 9.3 H, Absolute Lymphs (auto) 1.21, Nucleated RBC % 0, Sodium 134, Potassium 3.4, Chloride 98, Carbon Dioxide 24.1, Anion Gap 12, BUN 7, Creatinine 0.24 L, Estim Creat Clear Calc 235.00, Est GFR (MDRD) Non-Af 150, BUN/Creatinine Ratio 27.7 H, Glucose 119 H, Hemoglobin A1c 5.1, Calcium 8.7, Phosphorus 2.9, Total Bilirubin 0.29, AST 19, ALT 19, Alkaline Phosphatase 65, Total Protein 6.5, Albumin 3.6, Globulin 2.9, Albumin/Globulin Ratio 1.2, Triglycerides 88, Cholesterol 121, LDL Cholesterol, Calc 68, VLDL Cholesterol 18, HDL Cholesterol 36 L, Cholesterol/HDL Ratio 3.39 04/30/25 05:30: POC Glucose 115 H 04/30/25 13:06: POC Glucose 86 04/30/25 18:15: POC Glucose 111 H Micro: Microbiology 04/30/25 15:00 Stool C. difficile GDH Antigen & Toxins - Final 04/30/25 15:00 Stool Clostridioides difficile (PCR) - Final 04/30/25 15:06 Stool Stool Lactoferrin - Final 04/30/25 03:43 Nasal Secretion MRSA (PCR) - Final 04/29/25 22:03 Urine Catheter - Catheter Urine Culture - Preliminary GNR lactose installation drafter 04/29/25 22:03 Urine Catheter - Catheter Legionella Antigen - Final 04/29/25 22:03 Urine Catheter - Catheter Streptococcus pneumoniae Antigen (M - Final 04/29/25 22:03 Mucosa - Nose SARS-CoV-2, Influenza & RSV (PCR) - Final Imaging Radiology Impression Chest/Abdomen/Pelvis CT 04/29/25 21:06 IMPRESSION: Increased bilateral basilar airspace disease/consolidations of the lower lobes, possibly multifocal pneumonia. Midline tracheostomy tube is in good position. Unremarkable spinal metallic hardware. Bilateral nonobstructing renal stones with the largest measuring 8 mm on the right side. Percutaneous gastrostomy tube is in good position. Moderate gastroparesis. Right ovarian cyst measuring 4.7 cm in the interim. Two nonobstructing stones are noted layering in the posterior/dependent aspect of the bladder in the interim with the largest measuring 5 mm. Diffuse thickening of the left lateral wall of the bladder. Fluid-filled colon, possibly secondary to ileus/enteritis. Suspected gallstones. Dilated common bile duct. Suspected radiolucent stone in the distal aspect of the common bile duct. [facility] 04/30/25 06:00 IMPRESSION: Hepatomegaly and diffuse fatty infiltration of the liver. Solitary gallstone with stones seen in the common bile duct in the cystic duct. Common bile duct is dilated measuring 16.8 mm. Reading Location: [id number] Endo Retro Cholangiopancreatogram 04/30/25 16:45 IMPRESSION: As above. Reading Location: [id number] Assessment and Plan . Assessment and plan: ASSESSMENT #Sepsis #Possible pneumonia #UTI #Gastric stenosis s/p dilation #Choledocholithasis s/p ERCP #Cerebral palsy #Chronic respiratory failure #Chronic trach Biovona #5 cuffed #PEG #H/O Seizures #DM PLAN: -Continue vent support. Back up trach at bedside. -Abx per ID - Merrem -Follow cultures and temperature curve -Continue home medication regimen The entirety of this encounter was done via Telemedicine
[2025-05-01] VITALS (17 sets, daily range): BP systolic 100–139; BP diastolic 56–90; PULSE 57–97; RESP 13–24; TEMP 36.4–37; O2SAT 97–100; BMI 25.3
[2025-05-01] MEDS: Meropenem 1 GM in 0.9% Normal Saline (100mL MB+) 100 ML IV ×3 (05:25→23:35)
[2025-05-01 05:36] LABS: Hematocrit 29.4 % (37-47); Hemoglobin 9.8 g/dL (12.0-15.0); Immature Granulocytes Count 0.020 X10^3/uL (0.0-0.0); Mean Corp Hgb Conc 33.3 g/dL (32-36); Mean Corpuscular Volume 95.5 fL (81-99); Mean Platelet Vol. 10.1 fl (6.2-12.0); NRBC Flagged by Analyzer 0 % (0-5); Platelet Count 189 K/mm3 (150-450); RBC Distribution Width CV 12.7 % (11.6-14.6); RBC Distribution Width SD 44.0 fl (35.1-43.9); Red Blood Count 3.08 M/mm3 (4.2-5.4); White Blood Count 5.3 K/mm3 (4.4-11.0)
[2025-05-01 06:17] LABS: Magnesium 2.1 mg/dL (1.5-2.2)
[2025-05-01 06:19] LABS: AST(SGOT) 225 U/L (<=31); Alanine Aminotransfer ALT/SGPT 117 U/L (<=34); Albumin, Serum 3.5 g/dL (3.5-5.0); Alkaline Phosphatase 94 U/L (35-104); Anion Gap 10 (5-15); BUN 5 mg/dL (4-19); BUN/Creat Ratio 22.1 RATIO (10-20); Calcium,Total 8.5 mg/dL (7.6-11.0); Carbon Dioxide 21.9 mmol/L (21.0-32.0); Chloride 106 mmol/L (98-108); Estimated Creatinine Clearance 268.58 ml/min (50-250); Globulin 2.6 g/dL (2.2-4.2); Glucose 127 mg/dL (70-99); Potassium 4.0 mmol/L (3.3-5.1)
[2025-05-01] MEDS: Budesonide Respules 0.5 MG/2 ML AMPUL.NEB. INHALATION ×2 (07:03→20:02)
[2025-05-01] MEDS: Albuterol 2.5 MG/3 ML VIAL.NEB. INHALATION ×3 (07:03→20:01)
--- NOTE | 2025-05-01 07:28 | PN.HOSP_ITS ---
Reason for Visit Chief Complaint: Fever and Dysuria. Subjective Subjective 35-year-old female with history of cerebral palsy, nonverbal, tracheomalacia, trach collar on chronic ventilation was admitted with fever with increased secretions. Objective Data Objective Data Vital Signs: Vital Signs Temp Pulse Resp BP Pulse Ox O2 Del Method O2 Flow Rate 98.4 F 73 18 123/88 H 98 Mechanical Ventilator 4 05/01/25 04:00 05/01/25 07:04 05/01/25 07:04 05/01/25 06:00 05/01/25 07:04 05/01/25 07:04 05/01/25 07:04 FiO2 4 04/30/25 19:00 Oxygen Flow Rate (L/min) 4 Oxygen Delivery Method Mechanical Ventilator Weight: 49.5 kg Body Mass Index (BMI) 25.3 Intake & Output: Intake and Output for Last 24 Hours 04/29/25 04/30/25 05/01/25 23:59 23:59 23:59 Intake Total 3649 / 3649 100 / 100 Balance 3649 / 3649 100 / 100 Lab / Micro Data 05/01/25 05:18 05/01/25 05:18 Labs: Laboratory Results - last 24 hr 04/30/25 13:06: POC Glucose 86 04/30/25 18:15: POC Glucose 111 H 04/30/25 21:27: POC Glucose 178 H 05/01/25 00:05: POC Glucose 132 H 05/01/25 02:42: POC Glucose 146 H 05/01/25 05:18: WBC 5.3, RBC 3.08 L, Hgb 9.8 L, Hct 29.4 L, MCV 95.5, MCH 31.8, MCHC 33.3, RDW Std Deviation 44.0 H, RDW Coeff of Anne 12.7, Plt Count 189, MPV 10.1, Immature Gran % (Auto) 0.400, Neut % (Auto) 67.2, Lymph % (Auto) 17.3 L, M lauren % (Auto) 12.8 H, Eos % (Auto) 1.9, Baso % (Auto) 0.4, Absolute Neuts (auto) 3.6, Absolute Lymphs (auto) 0.92, Nucleated RBC % 0, Sodium 138, Potassium 4.0, Chloride 106, Carbon Dioxide 21.9, Anion Gap 10, BUN 5, Creatinine 0.21 L, Estim Creat Clear Calc 268.58 H, Est GFR (MDRD) Non-Af 155, BUN/Creatinine Ratio 22.1 H, Glucose 127 H, Calcium 8.5, Magnesium 2.1, Total Bilirubin 1.14, AST 225 H, A LT 117 H, Alkaline Phosphatase 94, Total Protein 6.0, Albumin 3.5, Globulin 2.6, Albumin/Globulin Ratio 1.4 05/01/25 05:28: POC Glucose 126 H Micro: Microbiology 04/29/25 22:03 Urine Catheter - Catheter Urine Culture - Preliminary ESBL Escherichia coli 05/01/25 00:25 Stool Enteric Bacteriology - Final 04/30/25 15:00 Stool C. difficile GDH Antigen & Toxins - Final 04/30/25 15:00 Stool Clostridioides difficile (PCR) - Final 04/30/25 15:06 Stool Stool Lactoferrin - Final 04/30/25 03:43 Nasal Secretion MRSA (PCR) - Final 04/29/25 22:03 Urine Catheter - Catheter Legionella Antigen - Final 04/29/25 22:03 Urine Catheter - Catheter Streptococcus pneumoniae Antigen (M - Final 04/29/25 22:03 Mucosa - Nose SARS-CoV-2, Influenza & RSV (PCR) - Final Radiography Diagnostic Testing: Radiology Impression Gallbladder Ultrasound 04/30/25 06:00 IMPRESSION: Hepatomegaly and diffuse fatty infiltration of the liver. Solitary gallstone with stones seen in the common bile duct in the cystic duct. Common bile duct is dilated measuring 16.8 mm. Reading Location: [id number] Endo Retro Cholangiopancreatogram 04/30/25 16:45 IMPRESSION: As above. Reading Location: [id number] Physical Exam Narrative General: Patient is alert nonverbal but smiles when prompted HEENT: Tracheal collar connected to the vent. Oral: Thick tongue. Neck: Neck contracture laying on the left side. Chest wall/Lungs: Air entry diminished but equal in bilateral lung bases. Cardiovascular: Regular rate and rhythm, Normal S1,S2, Abdomen: Bowel Sounds Present, Soft, Non Tender, PEG tube. : On diaper. No renal angle tenderness. No suprapubic tenderness. Extremities: No edema, Capillary Refill Less than 3 Seconds Skin: No rashes, No breakdown Musculoskeletal: Contracture of lower extremities. Bedbound. Neurological: Difficult to assess given patient underlying cerebral palsy Psych/Mental Status: Flat affect Skin Skin Narrative: Assessment & Plan Assessment/Plan (1) Multifocal pneumonia: (2) Choledocholithiasis: (3) Acute cystitis without hematuria: (4) History of ESBL E. coli infection: (5) Diarrhea: QUALIFIERS: Diarrhea type: presumed infectious Qualified Code(s): R19.7 - Diarrhea, unspecified PLAN: Plan 35-year-old female with history of cerebral palsy, nonverbal, tracheomalacia, trach collar on chronic ventilation was admitted with fever with increased secretions. 1. Sepsis secondary to multifocal bacterial pneumonia ?Patient was managed per protocol with IV fluid resuscitation, cultures sent and with broad-spectrum antibiotic therapy with meropenem. Patient is vent dependent did continue with home settings 2. Cholelithiasis ? Patient underwent ERCP found t was found to have gastric stenosis at the pylorus, biliary stricture and choledocholithiasis. Dr. Gay performed dilation at pylorus, biliary sphincterotomy and balloon extraction and biliary tree was swept and bile duct dilated. 3. Acute complicated UTI with ESBL E. coli ? Patient is on meropenem. ID on board 4. Spastic hemiplegic cerebral palsy ? Patient is vent dependent 5. Seizure disorder ? Stable on oxcarbazepine BID with no reports of recent seizure activity. 6. Diabetes mellitus type 2 ? Patient is on long-acting insulin did continue home regimen 7. GI prophylaxis patient is on Protonix 8. Diarrhea ? Per patient's father started on the first day of her admission. Patient currently in isolation C. difficile being ruled out 9. Anemia ? Secondary to chronic disorder monitoring H&H and transfuse if patient becomes symptomatic or hemoglobin falls below 7 10. DVT prophylaxis ? Patient was placed on SCDs prior to her ERCP subsequently started on Lovenox following the procedure Time spent in the patient's overall evaluation,decision-making process, review of diagnostic data, adjustment of management, discussion with other providers, nursing nursing and ancillary staff involved in patient's care documentation, 50 Minutes Charges/Coding Visit Charges Inpatient E&M: 88432 [facility] L3
[2025-05-01] MEDS: DIAZEPAM 5 MG/5 ML 7 MG GT ×2 (08:24→20:11)
[2025-05-01] MEDS: OXCARBAZEPINE 300 MG/5 ML 480 MG PO ×2 (08:25→20:10)
--- NOTE | 2025-05-01 10:17 | PCM.PN.ID ---
Physical Exam Narrative Feeling better per parents. No fever. ERCP yesterday. Const no apparent distress General Appearance: cooperative Resp normal air movement and clear to auscultation bilaterally Cardio regular rate and regular rhythm GI soft to palpation, non-tender and non-distended Skin no rashes or lesions noted ID ID: Route of nutrition/ use of supplements: [] Nutritional Intake: [] IV Site: [] Owens Catheter: [] Assessment & Plan Assessment/Plan (1) History of Clostridium difficile colitis: (2) Fever: QUALIFIERS: Fever type: unspecified Qualified Code(s): R50.9 - Fever, unspecified PLAN: GI following, had ERCP 04/30/25. Ucx with esbl ecoli and bcx ngtd. Cont meropenem. Cdiff neg. Will follow (3) Acute cystitis without hematuria: (4) Choledocholithiasis: (5) Multifocal pneumonia:
[2025-05-01] MEDS: HONEY 1 TOPICAL ×2 (11:15→20:10)
[2025-05-01] MEDS: INFANT FORMULA 160 GT ×3 (11:16→17:06)
[2025-05-01] MEDS: DIAZEPAM 5 MG/5 ML GT (13:47)
--- NOTE | 2025-05-01 15:59 | PCM.PN.BLA ---
Progress Note Patient has been doing well today. She has no problems with her tube feedings today. Physical Exam Const no apparent distress General Appearance: cooperative Resp normal air movement and clear to auscultation bilaterally Cardio regular rate and regular rhythm GI soft to palpation, non-tender and non-distended Skin no rashes or lesions noted Assessment & Plan Assessment/Plan (1) Choledocholithiasis: (2) Ascending cholangitis: PLAN: 35-year-old with fevers and discovered to have pneumonia and possible urosepsis. Patient underwent imaging was discovered to have choledocholithiasis and possible cholecystitis. She underwent ERCP with removal of stones in the cystic duct and common bile duct. She was also discovered to have pyloric stenosis during the procedure which was dilated. She is not having any problems at this time and tolerating feedings. Will continue to follow. Visit Charges Inpatient E&M: [id number] Subs Hosp L3
--- NOTE | 2025-05-01 16:18 | CASEMGMT ---
Shivam [facility] calls this RN CM and confirms that they are active with SN with the pt. Updated Shivam that the pt may require home IV ATBs again. Shivam reports that they will call again tomorrow for another update. CM to follow.
[2025-05-01] MEDS: 0.9% Saline Lock 10 ML Syringe IV (20:09)
--- NOTE | 2025-05-01 20:37 | CPS ---
Patient is on her home vent at this time with a 4L bleed in via trach. Her parent remains at bedside through the hospital stay.
[2025-05-01] MEDS: Pantoprazole Sodium 40 MG in 0.9% Normal Saline (100mL MB+) 100 ML 330 MG IV (23:13)
[2025-05-02 03:45] VITALS: BP 122/69; PULSE 73; RESP 20; TEMP 36.3; O2SAT 100
[2025-05-02 05:37] LABS: Hematocrit 31.8 % (37-47); Hemoglobin 10.6 g/dL (12.0-15.0); Immature Granulocytes Count 0.020 X10^3/uL (0.0-0.0); Mean Corp Hgb Conc 33.3 g/dL (32-36); Mean Corpuscular Volume 96.7 fL (81-99); Mean Platelet Vol. 10.2 fl (6.2-12.0); NRBC Flagged by Analyzer 0 % (0-5); Platelet Count 192 K/mm3 (150-450); RBC Distribution Width CV 12.9 % (11.6-14.6); RBC Distribution Width SD 46.1 fl (35.1-43.9); Red Blood Count 3.29 M/mm3 (4.2-5.4); White Blood Count 5.4 K/mm3 (4.4-11.0)
[2025-05-02 05:41] VITALS: BMI 27.3
[2025-05-02 05:58] LABS: AST(SGOT) 230 U/L (<=31); Alanine Aminotransfer ALT/SGPT 229 U/L (<=34); Albumin, Serum 3.7 g/dL (3.5-5.0); Alkaline Phosphatase 116 U/L (35-104); Anion Gap 13 (5-15); BUN 8 mg/dL (4-19); BUN/Creat Ratio 28.4 RATIO (10-20); Calcium,Total 9.0 mg/dL (7.6-11.0); Carbon Dioxide 21.2 mmol/L (21.0-32.0); Chloride 106 mmol/L (98-108); Estimated Creatinine Clearance 201.43 ml/min (50-250); Globulin 2.7 g/dL (2.2-4.2); Glucose 119 mg/dL (70-99); Magnesium 2.1 mg/dL (1.5-2.2); Potassium 4.0 mmol/L (3.3-5.1)
[2025-05-02] MEDS: 0.9% Saline Lock 10 ML Syringe IV (06:53)
[2025-05-02] MEDS: HONEY 1 TOPICAL ×2 (06:53→14:36)
[2025-05-02] MEDS: Meropenem 1 GM in 0.9% Normal Saline (100mL MB+) 100 ML IV (06:53)
[2025-05-02] MEDS: Albuterol 2.5 MG/3 ML VIAL.NEB. INHALATION ×2 (07:09→13:16)
[2025-05-02] MEDS: Budesonide Respules 0.5 MG/2 ML AMPUL.NEB. INHALATION (07:09)
[2025-05-02 07:10] VITALS: PULSE 72; RESP 14; O2SAT 98
--- NOTE | 2025-05-02 07:34 | PN.HOSP_ITS ---
Reason for Visit Chief Complaint: Fever and Dysuria. Subjective Subjective Patient seen resting comfortably. Patient is nonverbal, per patient's mother patient has been complaining of chest discomfort. Urine cultures reviewed positive for ESBL E. coli. Objective Data Objective Data Vital Signs: Vital Signs Temp Pulse Resp BP Pulse Ox O2 Del Method O2 Flow Rate 97.4 F L 72 14 122/69 H 98 Mechanical Ventilator 4 05/02/25 03:45 05/02/25 07:10 05/02/25 07:10 05/02/25 03:45 05/02/25 07:10 05/02/25 07:10 05/02/25 07:10 FiO2 4 04/30/25 19:00 Oxygen Flow Rate (L/min) 4 Oxygen Delivery Method Mechanical Ventilator Weight: 53.3 kg Body Mass Index (BMI) 27.3 Intake & Output: Intake and Output for Last 24 Hours 04/30/25 05/01/25 05/02/25 23:59 23:59 23:59 Intake Total 3649 / 3649 400 / 400 100 / 100 Balance 3649 / 3649 400 / 400 100 / 100 Lab / Micro Data 05/02/25 05:06 05/02/25 05:06 Labs: Laboratory Results - last 24 hr 05/01/25 11:13: POC Glucose 160 H 05/01/25 17:03: POC Glucose 127 H 05/01/25 23:15: POC Glucose 86 05/02/25 05:06: WBC 5.4, RBC 3.29 L, Hgb 10.6 L, Hct 31.8 L, MCV 96.7, MCH 32.2 H, MCHC 33.3, RDW Std Deviation 46.1 H, RDW Coeff of Anne 12.9, Plt Count 192, MPV 10.2, Immature Gran % (Auto) 0.400, Neut % (Auto) 68.1, Lymph % (Auto) 17.4 L, [place] % (Auto) 10.2 H, Eos % (Auto) 3.5, Baso % (Auto) 0.4, Absolute Neuts (auto) 3.7, Absolute Lymphs (auto) 0.94, Nucleated RBC % 0, Sodium 140, Potassium 4.0, Chloride 106, Carbon Dioxide 21.2, Anion Gap 13, BUN 8, C reatinine 0.28 L, Estim Creat Clear Calc 201.43, Est GFR (MDRD) Non-Af 145, B UN/Creatinine Ratio 28.4 H, Glucose 119 H, Calcium 9.0, Phosphorus 2.6 L, Magnesium 2.1, Total Bilirubin 0.58, AST 230 H, ALT 229 H, Alkaline Phosphatase 116 H, Total Protein 6.3, Albumin 3.7, Globulin 2.7, Albumin/Globulin Ratio 1.4 05/02/25 06:52: POC Glucose 117 H Micro: Microbiology 04/29/25 21:35 Blood Culture (Wb) - Right Hand Blood Culture - Preliminary No growth in 48 hours. 04/29/25 21:20 Blood Culture (Wb) - Left Hand Blood Culture - Preliminary No growth in 48 hours. 04/29/25 22:03 Urine Catheter - Catheter Urine Culture - Preliminary ESBL Escherichia coli 05/01/25 00:25 Stool Enteric Bacteriology - Final 04/30/25 15:00 Stool C. difficile GDH Antigen & Toxins - Final 04/30/25 15:00 Stool Clostridioides difficile (PCR) - Final 04/30/25 15:06 Stool Stool Lactoferrin - Final 04/30/25 03:43 Nasal Secretion MRSA (PCR) - Final 04/29/25 22:03 Urine Catheter - Catheter Legionella Antigen - Final 04/29/25 22:03 Urine Catheter - Catheter Streptococcus pneumoniae Antigen (M - Final 04/29/25 22:03 Mucosa - Nose SARS-CoV-2, Influenza & RSV (PCR) - Final Physical Exam Narrative General: Patient is alert nonverbal but smiles when prompted HEENT: Tracheal collar connected to the vent. Oral: Thick tongue. Neck: Neck contracture laying on the left side. Chest wall/Lungs: Air entry diminished but equal in bilateral lung bases. Cardiovascular: Regular rate and rhythm, Normal S1,S2, Abdomen: Bowel Sounds Present, Soft, Non Tender, PEG tube. : On diaper. No renal angle tenderness. No suprapubic tenderness. Extremities: No edema, Capillary Refill Less than 3 Seconds Skin: No rashes, No breakdown Musculoskeletal: Contracture of lower extremities. Bedbound. Neurological: Difficult to assess given patient underlying cerebral palsy Psych/Mental Status: Flat affect Assessment & Plan Assessment/Plan (1) Multifocal pneumonia: (2) Choledocholithiasis: (3) Acute cystitis without hematuria: (4) History of ESBL E. coli infection: (5) Diarrhea: QUALIFIERS: Diarrhea type: presumed infectious Qualified Code(s): R19.7 - Diarrhea, unspecified PLAN: Plan 35-year-old female with history of cerebral palsy, nonverbal, tracheomalacia, trach collar on chronic ventilation was admitted with fever with increased secretions. 1. Sepsis secondary to multifocal bacterial pneumonia and UTI ?Patient was managed per protocol with IV fluid resuscitation, cultures sent and with broad-spectrum antibiotic therapy with meropenem. Patient is vent dependent did continue with home settings ? 05/02/2025; blood cultures so far negative to date urine cultures however came back positive for ESBL E. coli 2. Cholelithiasis ? Patient underwent ERCP found t was found to have gastric stenosis at the pylorus, biliary stricture and choledocholithiasis. Dr. Gay performed dilation at pylorus, biliary sphincterotomy and balloon extraction and biliary tree was swept and bile duct dilated. 3. Acute complicated UTI with ESBL E. coli -UTI is due to or associated with straight catheterization catheter ? Patient is on meropenem. ID on board ? 05/02/2025; urine cultures positive for ESBL E. coli patient is on meropenem discharge antibiotic therapy will be deferred to ID 4. Multifocal pneumonia ? Patient manage broad-spectrum antibiotic therapy and patient continued on her home noninvasive ventilation setting 5. Spastic hemiplegic cerebral palsy ? Patient is vent dependent 6. Seizure disorder ? Stable on oxcarbazepine BID with no reports of recent seizure activity. 7. Diabetes mellitus type 2 ? Patient is on long-acting insulin did continue home regimen 8. Diarrhea ? Per patient's father started on the first day of her admission. Patient currently in isolation C. difficile being ruled out ? 05/02/2025; stool for C. difficile came back negative. Ova and parasite has been sent on admission result pending 9. Anemia ? Secondary to chronic disorder monitoring H&H and transfuse if patient becomes symptomatic or hemoglobin falls below 7 10. DVT prophylaxis ? Patient was placed on SCDs prior to her ERCP subsequently started on Lovenox following the procedure Time spent in the patient's overall evaluation,decision-making process, review of diagnostic data, adjustment of management, discussion with other providers, nursing nursing and ancillary staff involved in patient's care documentation, 38 Minutes Charges/Coding Visit Charges Inpatient E&M: 63663 Subs Hosp L2
[2025-05-02] MEDS: DIAZEPAM 5 MG/5 ML 7 MG GT (08:36)
[2025-05-02] MEDS: INFANT FORMULA 160 GT ×3 (08:36→14:36)
[2025-05-02] MEDS: OXCARBAZEPINE 300 MG/5 ML 480 MG PO (08:37)
[2025-05-02 08:46] VITALS: BP 132/77; PULSE 106; RESP 22; TEMP 37; O2SAT 100
[2025-05-02 11:19] VITALS: BP 120/79; PULSE 71; RESP 20; TEMP 37.1; O2SAT 100
[2025-05-02 13:19] VITALS: PULSE 78; RESP 16
--- NOTE | 2025-05-02 14:26 | CASEMGMT ---
HIREN WILSON updated by infectious disease that patient till discharge home on IV Ertapenem, script received. HIREN WILSON in to discuss discharge with mother, Rina. Rina wishes for patient to discharge today with resumption of [facility]. Rina prefers [facility] for infusion. Rina states they will need [facility] to take patient home and requests for patient to use her home vent at discharge, HIREN WILSON updated PCU community worker. HIREN WILSON sent referral to [facility]. HIREN WILSON updated DC Planing Distribution System Operator to send update to [facility]. CM will continue to follow this patient and plan for a safe discharge.
[2025-05-02] MEDS: DIAZEPAM 5 MG/5 ML GT (14:35)
[2025-05-02] MEDS: Ertapenem Sod 1 GM in 0.9% Normal Saline (50mL MB+) 50 ML IV (14:36)
--- NOTE | 2025-05-02 14:57 | DS.PCM_ITS ---
Providers Date of Admission: 04/30/25 Date of Discharge: 05/02/25 Primary Care Physician: Dr. Sandra Bermudez, Consultations 04/30/25 02:31 Consult: Gastroenterology Routine Consulting Provider: [facility] Reason for Consult: Choledocholithiasis on CT. EMERGENT Consult: No Notified: Yes Date Notified: 04/30/25 Time Notified: 08:02 Method of Notification: Text Consult: Infectious Disease Routine Consulting Provider: Rafa Bettencourt Reason for Consult: Multifocal PNA, Choledocholithiasis and UTI with h/o ESBL. EMERGENT Consult: No Notified: Yes Date Notified: 04/30/25 Time Notified: 07:56 Method of Notification: Answering Service 04/30/25 17:28 Consult: Acetaldehyde Converter Operator / Pulmonary Medicine Routine Consulting Provider: Intensivists/Pulmonary Med Reason for Consult: chr resp failure on vent thr trach collor, CP, MRDD EMERGENT Consult: No Notified: Yes Date Notified: 04/30/25 Time Notified: 20:44 Method of Notification: Text Reason For Visit: MULTIFOCAL PNA, CHOLDOCHOLITHASIS & UTI Diagnosis Discharge Diagnosis (1) Multifocal pneumonia: Status: Acute Code(s): J18.8 - Other pneumonia, unspecified organism (2) Choledocholithiasis: Status: Acute Code(s): K80.50 - Calculus of bile duct without cholangitis or cholecystitis without obstruction (3) Acute cystitis without hematuria: Status: Acute Code(s): N30.00 - Acute cystitis without hematuria (4) History of ESBL E. coli infection: Status: Acute Code(s): Z86.19 - Personal history of other infectious and parasitic diseases (5) Diarrhea: Status: Acute Code(s): R19.7 - Diarrhea, unspecified Qualifiers: Diarrhea type: presumed infectious Qualified Code(s): R19.7 - Diarrhea, unspecified Plan 35-year-old female with history of cerebral palsy, nonverbal, tracheomalacia, trach collar on chronic ventilation was admitted with fever with increased secretions. 1. Sepsis secondary to multifocal bacterial pneumonia and UTI ?Patient was managed per protocol with IV fluid resuscitation, cultures sent and with broad-spectrum antibiotic therapy with meropenem. Patient is vent dependent did continue with home settings ? 05/02/2025; blood cultures so far negative to date urine cultures however came back positive for ESBL E. coli ? Patient was discharged home on ertapenem for 4 more doses 2. Cholelithiasis ? Patient underwent ERCP found t was found to have gastric stenosis at the pylorus, biliary stricture and choledocholithiasis. Dr. Gay performed dilation at pylorus, biliary sphincterotomy and balloon extraction and biliary tree was swept and bile duct dilated. 3. Acute complicated UTI with ESBL E. coli -UTI is due to or associated with straight catheterization catheter ? Patient is on meropenem. ID on board ? 05/02/2025; urine cultures positive for ESBL E. coli patient is on meropenem discharge antibiotic therapy will be deferred to ID 4. Multifocal pneumonia ? Patient manage broad-spectrum antibiotic therapy and patient continued on her home noninvasive ventilation setting 5. Spastic hemiplegic cerebral palsy ? Patient is vent dependent 6. Seizure disorder ? Stable on oxcarbazepine BID with no reports of recent seizure activity. 7. Diabetes mellitus type 2 ? Patient is on long-acting insulin did continue home regimen 8. Diarrhea ? Per patient's father started on the first day of her admission. Patient currently in isolation C. difficile being ruled out ? 05/02/2025; stool for C. difficile came back negative. Ova and parasite has been sent on admission result pending 9. Anemia ? Secondary to chronic disorder monitoring H&H and transfuse if patient becomes symptomatic or hemoglobin falls below 7 10. DVT prophylaxis ? Patient was placed on SCDs prior to her ERCP subsequently started on Lovenox following the procedure Time spent in the patient's overall evaluation,decision-making process, review of diagnostic data, adjustment of management, discussion with other providers, nursing nursing and ancillary staff involved in patient's care documentation, 38 Minutes Medications at Discharge Home Medications baclofen 20 mg tablet 30 mg G-tube TID muscle spasms 09/02/13 oxcarbazepine 300 mg/5 mL (60 mg/mL) oral suspension (Trileptal) 8 ml G-tube BID seizure 08/28/17 diazepam 5 mg/5 mL (1 mg/mL) oral solution 5 mg feeding tube DAILY@1400 spasms 05/20/21 diazepam 5 mg/5 mL (1 mg/mL) oral solution 7 mg feeding tube BID spasms 05/20/21 ascorbic acid (vitamin C) 500 mg/5 mL oral syrup 500 mg feeding tube BID SUPPLEMENT 04/01/22 cholecalciferol (vitamin D3) 50 mcg (2,000 unit) capsule 50 mcg feeding tube DAILY SUPPLEMENT 12/12/21 ibuprofen 100 mg/5 mL oral suspension 400 mg PO Q6H PRN Pain 12/12/21 miconazole nitrate 2 % vaginal cream (Monistat 7) 1 appful vaginal DAILY PRN YEAST 12/12/21 sodium chloride 0.9 % for nebulization 3 - 6 ml inhalation Q2H PRN Congestion 12/12/21 levalbuterol HCl 1.25 mg/3 mL solution for nebulization 1.25 mg (3 mL) inhalation BID BREATHING #90 mL 01/16/22 acetaminophen 160 mg/5 mL oral liquid 640 mg PO Q4H PRN pain/fever 03/31/22 acidophilus 25 million cell-pectin, citrus 100 mg tablet 1 tab G-tube DAILY supplement 03/31/22 carbamide peroxide 6.5 % ear drops (Debrox) 5 drp EACH EAR DAILY PRN Ear Wax 03/31/22 magnesium hydroxide 400 mg/5 mL oral suspension (Milk of Magnesia) 15 - 60 ml PO DAILY PRN Constipation 03/31/22 nystatin 100,000 unit/gram topical powder 1 applic topical BID PRN redness 03/31/22 ferrous sulfate 15 mg iron (75 mg)/mL oral syringe (ORAL USE) 5 ml feeding tube MOTH supplement 08/24/22 docusate sodium 60 mg/15 mL oral syrup 60 mg feeding tube DAILY stool softner 08/29/22 nutritional supplements 1 ea PO BID Check with primary doctor 08/29/22 meropenem 1 gram intravenous solution 1 g IV Q8 infection 7 days #21 ea 09/03/22 blood sugar diagnostic (True Metrix Pro Test Strip) #400 ea 02/23/23 cetirizine 5 mg/5 mL oral solution 10 mg (10 mL) PO DAILY allergy symptoms #300 mL 03/18/23 fluticasone propionate 44 mcg/actuation HFA aerosol inhaler (Flovent HFA) 2 puff inhalation BID breathing #10.6 grams 05/23/24 levalbuterol HCl 1.25 mg/3 mL solution for nebulization 1.25 mg (3 mL) inhalation Q4H PRN sob #150 mL 05/23/24 insulin glargine 100 unit/mL (3 mL) subcutaneous pen (Basaglar KwikPen U-100 Insulin) 20 unit (0.2 mL) subcut QPM sugar #15 mL 10/24/24 artificial tears(hypromellose) 0.3 % eye gel (GenTeal Tears Severe) 1 drp EACH EYE BID PRN dry eyes 11/02/24 bacitracin 500 unit/gram topical ointment 1 applic topical 4X/DAY PRN ABRASIONS 11/02/24 guaifenesin 100 mg/5 mL oral liquid 200 mg G-tube Q4H PRN thick secretions 11/02/24 honey 80 % topical gel (Manuka Honey) 1 applic topical BID PRN wound healing 11/02/24 hydrocortisone 1 % topical cream (Ala-Brown) 1 applic topical 4X/DAY PRN itching 11/02/24 methenamine hippurate 1 gram tablet 1 g PO BID infection 11/02/24 soeoeflg-mylv-dfpvqgu gluconate 9 mg iron/15 mL (15 mL) oral liquid (Centrum) 5 ml PO DAILY supplement 11/02/24 potassium chloride 20 mEq/15 mL oral liquid 10 meq PO DAILY supplement 11/02/24 sodium chloride 0.9 % topical spray 1 applic topical PRN trach care 11/02/24 trolamine salicylate 10 % topical cream (Alcis) 1 applic topical 4X/DAY PRN muscle pain 11/02/24 Novolog FlexPen U-100 Insulin 100 unit/mL (3 mL) subcutaneous (insulin aspart U- 100) 18 unit (0.18 mL) subcut .qid sugar 90 days #33 mL 01/29/25 pen needle, diabetic 32 gauge x 5/32 #360 ea 01/29/25 lancets 30 gauge (Embrace Lancets) #200 ea 02/21/25 blood sugar diagnostic (True Metrix Glucose Test Strip) #150 ea 04/03/25 lancets 33 gauge (OneTouch Delica Plus Lancet) #200 ea 04/17/25 lancing device with lancets kit (OneTouch Delica Plus Lancing Device kit) #1 ea 04/17/25 nut.tx impaired digest-fiber 14.8 gram-472 kcal/100 gram oral powder (Neocate Rell With Prebiotics) ea feeding tube .qid feeding 04/30/25 ertapenem 1 gram solution for injection 1 g IV Q24 #4 ea 05/02/25 Physical Exam Narrative General: Patient is alert nonverbal HEENT: Tracheal collar connected to the vent. Oral: Thick tongue. Neck: Neck contracture laying on the left side. Chest wall/Lungs: Air entry diminished but equal in bilateral lung bases. Cardiovascular: Regular rate and rhythm, Normal S1,S2, Abdomen: Bowel Sounds Present, Soft, Non Tender, PEG tube. : On diaper. No renal angle tenderness. No suprapubic tenderness. Extremities: No edema, Capillary Refill Less than 3 Seconds Skin: No rashes, No breakdown Musculoskeletal: Contracture of lower extremities. Bedbound. Neurological: Difficult to assess given patient underlying cerebral palsy Psych/Mental Status: Flat affect Weight / BMI Weight Weight: 53.3 kg Body Mass Index (BMI) 27.3 ABG / Lab / Microbiology Data 05/02/25 05:06 05/02/25 05:06 Laboratory: Laboratory Results - last 24 hr 05/01/25 17:03: POC Glucose 127 H 05/01/25 23:15: POC Glucose 86 05/02/25 05:06: WBC 5.4, RBC 3.29 L, Hgb 10.6 L, Hct 31.8 L, MCV 96.7, MCH 32.2 H, MCHC 33.3, RDW Std Deviation 46.1 H, RDW Coeff of Anne 12.9, Plt Count 192, MPV 10.2, Immature Gran % (Auto) 0.400, Neut % (Auto) 68.1, Lymph % (Auto) 17.4 L, [place] % (Auto) 10.2 H, Eos % (Auto) 3.5, Baso % (Auto) 0.4, Absolute Neuts (auto) 3.7, Absolute Lymphs (auto) 0.94, Nucleated RBC % 0, Sodium 140, Potassium 4.0, Chloride 106, Carbon Dioxide 21.2, Anion Gap 13, BUN 8, C reatinine 0.28 L, Estim Creat Clear Calc 201.43, Est GFR (MDRD) Non-Af 145, B UN/Creatinine Ratio 28.4 H, Glucose 119 H, Calcium 9.0, Phosphorus 2.6 L, Magnesium 2.1, Total Bilirubin 0.58, AST 230 H, ALT 229 H, Alkaline Phosphatase 116 H, Total Protein 6.3, Albumin 3.7, Globulin 2.7, Albumin/Globulin Ratio 1.4 05/02/25 06:52: POC Glucose 117 H 05/02/25 11:10: POC Glucose 157 H Microbiology: Microbiology 04/29/25 22:03 Urine Catheter - Catheter Urine Culture - Final ESBL Escherichia coli 04/29/25 21:35 Blood Culture (Wb) - Right Hand Blood Culture - Preliminary No growth in 48 hours. 04/29/25 21:20 Blood Culture (Wb) - Left Hand Blood Culture - Preliminary No growth in 48 hours. 05/01/25 00:25 Stool Enteric Bacteriology - Final 04/30/25 15:00 Stool C. difficile GDH Antigen & Toxins - Final 04/30/25 15:00 Stool Clostridioides difficile (PCR) - Final 04/30/25 15:06 Stool Stool Lactoferrin - Final 04/30/25 03:43 Nasal Secretion MRSA (PCR) - Final 04/29/25 22:03 Urine Catheter - Catheter Legionella Antigen - Final 04/29/25 22:03 Urine Catheter - Catheter Streptococcus pneumoniae Antigen (M - Final 04/29/25 22:03 Mucosa - Nose SARS-CoV-2, Influenza & RSV (PCR) - Final D/C Instructions DC O2, CPAP, BIPAP Needs Home O2 Discharge instructions: No Meaningful Use Info Meaningful Use Meaningful Use Diagnoses (Choose all that apply): None applicable Discharge Plan Admission Admit Date/Time: 04/30/25 01:37 Attending Provider: Kane Dupree Primary Care Provider: Sandra Bermudez Consulting Providers: Kane Goldman; River Mireles; Rafa Bettencourt; Duane Han; Tom Garcia; Lawrence Weiner; Landry Valenzuela; Kane Woodall; Merritt Patrick; Oz Longoria; January Calix; Kumar Guadarrama; Rasheed Knight; Kevin Wooten; Alyse Cohn; Domenica Garcia; Letitia Kyle; Jessica,Terrance; Alessandro Villar; Cali Pulido; Kolton Rivera; Kari Harris; Han Tom; Valentín Antonio; James Gandara; Reji Theodore Discharge Orders/Prescriptions Prescriptions: New ertapenem 1 gram Recon Soln 1 g IV Q24 Qty: 4 0RF Rx Instructions: Dx: esbl infection Continued oxcarbazepine [Trileptal] 300 mg/5 mL (60 mg/mL) suspension 8 ml GT BID insulin glargine [Basaglar KwikPen U-100 Insulin] 100 unit/mL (3 mL) insulin pen 20 unit subcut QPM Qty: 15 2RF baclofen 20 MG tablet 30 mg GT TID Patient Comments: pain ferrous sulfate 15 mg iron (75 mg)/mL syringe 5 ml feeding tube MOTH Rx Instructions: TWICE WEEKLY ON WEDNESDAY AND WEDNESDAY diazepam 5 mg/5 mL (1 mg/mL) Solution 7 mg feeding tube BID diazepam 5 mg/5 mL (1 mg/mL) Solution 5 mg feeding tube DAILY@1400 miconazole nitrate [Monistat 7] 2 % Cream 1 appful VAGINAL DAILY PRN (Reason: YEAST) ibuprofen 100 mg/5 mL Suspension 400 mg PO Q6H PRN (Reason: Pain) sodium chloride 0.9 % Solution For Nebulization 3 - 6 ml INHALATION Q2H PRN (Reason: Congestion) ascorbic acid (vitamin C) 500 mg/5 mL Syrup 500 mg feeding tube BID cholecalciferol (vitamin D3) 50 mcg (2,000 unit) Capsule 50 mcg feeding tube DAILY acetaminophen 160 mg/5 mL Liquid 640 mg PO Q4H PRN (Reason: pain/fever) magnesium hydroxide [Milk of Magnesia] 400 mg/5 mL Suspension 15 - 60 ml PO DAILY PRN (Reason: Constipation) Debrox 6.5 % Drops 5 drp EACH EAR DAILY PRN (Reason: Ear Wax) nystatin 100,000 unit/gram Powder 1 applic TOPICAL BID PRN (Reason: redness) acidophilus-pectin, citrus 25 million cell -100 mg tablet 1 tab G-tube DAILY Rx Instructions: [id number] nutritional supplements Powder 1 ea PO BID Rx Instructions: GIVEN VIIA G-TUBE BID docusate sodium 60 mg/15 mL Syrup 60 mg feeding tube DAILY meropenem 1 gram Recon Soln 1 g IV Q8 7 Days Qty: 21 0RF Rx Instructions: dx: esbl infection weekly bmp, cbc, and LFT while on iv abx. Fax to [phone] hydrocortisone [Ala-Brown] 1 % cream 1 applic topical 4X/DAY PRN (Reason: itching) bacitracin 500 unit/gram ointment 1 applic topical 4X/DAY PRN (Reason: ABRASIONS) methenamine hippurate 1 gram tablet 1 g PO BID Manuka Honey 80 % gel 1 applic topical BID PRN (Reason: wound healing) potassium chloride 20 mEq/15 mL liquid 10 meq PO DAILY qwgolwux-uci-swketwg gluconate [Centrum] 9 mg iron/ 15 mL (15 mL) liquid 5 ml PO DAILY guaifenesin 100 mg/5 mL liquid 200 mg GT Q4H PRN (Reason: thick secretions) trolamine salicylate [Alcis] 10 % cream 1 applic topical 4X/DAY PRN (Reason: muscle pain) GenTeal Tears Severe Gel 0.3 % gel 1 drp EACH EYE BID PRN (Reason: dry eyes) sodium chloride 0.9 % aerosol,spray 1 applic topical PRN Rx Instructions: INSTILL 30 DROPS OR 1ML EVERY HOUR NEEDED INTO TRACH TO THIN SECRETIONS Neocate Rell With Prebiotics 14.8 gram-472 kcal/100 gram powder feeding tube .qid Rx Instructions: 160ml over 1 hour levalbuterol HCl 1.25 mg/3 mL solution for nebulization 1.25 mg INHALATION BID Qty: 90 5RF (DME) True Metrix Pro Test Strip Strip See Rx Instructions .ROUTE .MEDSUPPLY Qty: 400 3RF Rx Instructions: 4 times daily, plus extra for mental status change cetirizine 5 mg/5 mL solution 10 mg PO DAILY Qty: 300 11RF fluticasone propionate [Flovent HFA] 44 mcg/actuation HFA aerosol inhaler 2 puff INHALATION BID Qty: 10.6 11RF Rx Instructions: administer with spacer levalbuterol HCl 1.25 mg/3 mL solution for nebulization 1.25 mg INHALATION Q4H PRN (Reason: sob) Qty: 150 11RF (DME) pen needle, diabetic 32 gauge x 5/32 needle See Rx Instructions .ROUTE .MEDSUPPLY Qty: 360 3RF Rx Instructions: 5 times daily insulin aspart U-100 [Novolog FlexPen U-100 Insulin] 100 unit/mL (3 mL) insulin pen 18 unit subcut .qid 90 Days Qty: 33 3RF Rx Instructions: 160 +3, 201 +5, 241 +8, 280 +10 This is sliding scale, caregiver understands how to administer. (DME) lancets [Embrace Lancets] 30 gauge misc See Rx Instructions .Route Qty: 200 8RF Rx Instructions: 4x/day (DME) True Metrix Glucose Test Strip Strip See Rx Instructions .Route Qty: 150 12RF Rx Instructions: 5 times per day with tube feedings (DME) lancets [OneTouch Delica Plus Lancet] 33 gauge misc See Rx Instructions .Route Qty: 200 8RF Rx Instructions: 5 times daily (DME) lancing device with lancets [OneTouch Delica Plus Lanc Dev] Kit See Rx Instructions .Route Qty: 1 0RF Rx Instructions: As directed Referrals / Follow Up: Sandra Bermudez DO [Primary Care Provider] - Within 2 Weeks Disposition Disposition (needs filled in before D/C Order can be placed): Home, Self Care Charges/Coding Visit Charges Inpatient E&M: 77777 Disch Hosp >30min
--- NOTE | 2025-05-02 15:02 | PCM.PN.ID ---
Physical Exam Narrative Feeling better, diarrhea resolved, no fever Const alert and no apparent distress Resp normal air movement and clear to auscultation bilaterally Cardio regular rate and regular rhythm GI soft to palpation, non-tender and non-distended Skin no rashes or lesions noted ID ID: Route of nutrition/ use of supplements: [] Nutritional Intake: [] IV Site: [] Owens Catheter: [] Assessment & Plan Assessment/Plan (1) History of Clostridium difficile colitis: (2) Fever: QUALIFIERS: Fever type: unspecified Qualified Code(s): R50.9 - Fever, unspecified PLAN: GI following, had ERCP 04/30/25. Ucx with esbl ecoli and bcx ngtd. On meropenem. Cdiff neg. Will change to ertapenem and write rx for 4 more days. Will follow, d/w nursing (3) Acute cystitis without hematuria: (4) Choledocholithiasis: (5) Multifocal pneumonia:
--- NOTE | 2025-05-02 15:48 | CASEMGMT ---
RN KATIE received notification from [facility] that patient is covered 100% and medication will be delivered prior to 1430 tomorrow. RN KATIE updated mother Rina. Rina voiced understanding and appreciation. RN KATIE updated dicharge plan.
[2025-05-02 16:45] VITALS: BP 121/92; PULSE 64; RESP 20; TEMP 36.9; O2SAT 100
== END 2025-05-02 15:45 | disposition home health service (06) | DRG 698 ==
LOC: ED 23:25 → ICU 04-30 01:12 → PCU 05-01 12:27
PROVIDERS: Internal Medicine; Internal Medicine Gastroenterology; Admitting Provider Internal Medicine; Emergency Provider Emergency Medicine; PCP Internal Medicine; Visit Provider Internal Medicine
PROC: 0FC98ZZ Extirpation of Matter from Common Bile Duct, Via Natural or Artificial Opening Endoscopic (ICD-10-PCS; CPT 43260; principal; 2025-04-30 15:40)
DX: T83.518A Infection and inflammatory reaction due to other urinary catheter, initial encounter (principal); A41.9 Sepsis, unspecified organism; J15.9 Unspecified bacterial pneumonia; Z99.11 Dependence on respirator [ventilator] status; K80.71 Calculus of gallbladder and bile duct without cholecystitis with obstruction; J96.11 Chronic respiratory failure with hypoxia; G80.2 Spastic hemiplegic cerebral palsy; N39.0 Urinary tract infection, site not specified; G40.909 Epilepsy, unspecified, not intractable, without status epilepticus; E11.43 Type 2 diabetes mellitus with diabetic autonomic (poly)neuropathy; Z68.36 Body mass index [BMI] 36.0-36.9, adult; Z93.1 Gastrostomy status; Z93.0 Tracheostomy status; M41.40 Neuromuscular scoliosis, site unspecified; K83.8 Other specified diseases of biliary tract; M19.90 Unspecified osteoarthritis, unspecified site; K31.84 Gastroparesis; E83.42 Hypomagnesemia; Z79.4 Long term (current) use of insulin; E66.9 Obesity, unspecified; N20.0 Calculus of kidney; B96.20 Unspecified Escherichia coli [E. coli] as the cause of diseases classified elsewhere; Z79.899 Other long term (current) drug therapy; X58.XXXA Exposure to other specified factors, initial encounter
CPT/HCPCS: 36415; 36569; 71250; 74176; 74330; 76000; 76705; 80053; 80061; 81001; 82962; 83036; 83605; 83630; 83690; 83735; 84100; 84443; 85025; 85610; 85730; 87040; 87077; 87086; 87088; 87177; 87186; 87209; 87449; 87493; 87506; 87631; 87641; 93005; 94640; 97802; 99252; 99285; J2185; P9612; A4216; G0463

== ENCOUNTER 2025-05-20 13:09 | Inpatient (IN) | payer MEDICARE, MEDICAID, SELFPAY ==
[2025-05-20] VITALS (10 sets, daily range): BP systolic 116–148; BP diastolic 72–86; PULSE 59–94; RESP 14–23; TEMP 36.6–37.4; O2SAT 98–100; BMI 24.4
--- NOTE | 2025-05-20 13:52 | CT_ITS ---
PROCEDURE: CT CHEST, ABD, PELVIS WO CONT 05/20/2025 REASON FOR EXAM: HEMATURIA, FEVER, RECENT PNA TECHNIQUE: Chest, abdomen and pelvis CT without intravenous contrast. Coronal and Sagittal reconstruction series were provided. One or more dose reduction techniques were used (e.g., Automated exposure control, adjustment of the mA and/or kV according to patient size, use of iterative reconstruction technique. RADIATION DOSE SUMMARY: CTDlvol: Please see CT data mGy DLP: Please see CT data mGycm COMPARISON: CT chest, abdomen and pelvis April 30, 2025 FINDINGS: Study limitations: Evaluation for inflammatory change, infection, soft tissue mass, adenopathy, bowel wall thickening, mediastinal and hilar structures, posttraumatic injury, viscera and vasculature is compromised without contrast. Fine detail evaluation through the posterior soft tissues is slightly compromised by metallic streak artifact from indwelling hardware. Pulmonary arteries: Diameter of the main pulmonary trunk at 26.45 mm is within normal range. Pulmonary arterial patency and pulmonary emboli can not be assessed on this study. Heart: Cardiothoracic ratio is within normal limits. Tiny bubbles of gas noted within the right ventricle, likely iatrogenic from an IV site. Cardiac chambers can not be assessed without contrast. No significant pericardial effusion. Coronary arteries are not well assessed due to motion artifact. No dense appearing coronary calcification seen. Aorta: No thoracic aortic aneurysm. Tortuous thoracic aorta. No abdominal aortic aneurysm. No periaortic hematoma or retroperitoneal hemorrhage. Vascular patency or dissection can not be assessed on this study without contrast. Mediastinum: The tip of a catheter is seen within the proximal trachea approximately 6.5 cm above the level of the timur. No mediastinal hematoma. No mediastinal soft tissue emphysema. Lymph nodes: Evaluation for lymphadenopathy is suboptimal without contrast. No obvious pathologic appearing lymphadenopathy by size criteria. The pulmonary glenn are not well assessed without contrast differentiation. Hilar lymph nodes can not be ruled out. Esophagus: No periesophageal inflammation seen. No hiatal hernia. Thyroid: Not visualized on this exam. Lungs: Mildly confluent scattered predominantly basal and subpleural reticular opacities noted most likely due to atelectasis. Any possibility of mild aspiration or pneumonitis to be correlated clinically. No bronchiectasis or peribronchial thickening seen. Pleura: No pleural effusion. No pneumothorax. Liver: Mild hepatomegaly. Slight undulation of the surface of the liver. Evaluation of hepatic parenchyma is limited without contrast. Hepatic attenuation is consistent with steatosis. Gallbladder/biliary: Mildly distended gallbladder with a transverse diameter of 3.7 cm. No calcified gallstones. No pericholecystic fluid. Biliary dilation is not well assessed without contrast. If there are related symptoms consider ultrasound. Pancreas: Evaluation of the pancreas is limited. No peripancreatic inflammation seen. Spleen: The spleen is not enlarged. Splenic parenchyma is not well assessed. Adrenals: Appearance of the adrenal glands is within normal limits. Kidneys/ureters: The kidneys are similar in size. There is no hydronephrosis bilaterally. Nonobstructive bilateral caliceal calculi and parenchymal calculi noted [id number]. No ureteral calculi are seen. Evaluation of renal parenchyma is limited without contrast. UTI can not be excluded without contrast. Gastrointestinal: An anterior percutaneous gastrostomy tube is seen with its balloon inflated in the antrum of the stomach. Suspected 2.5 cm gastric fundal diverticulum. The stomach is mildly distended with an air-fluid level. No perigastric inflammation. Evaluation for bowel wall and fold thickening is compromised on this study, secondary to lack of any contrast. Nonspecific fluid and gas-filled loops of mildly distended small bowel noted. No focal point of transition to suggest complete obstruction. Findings may be due to peristalsis, ileus or gastroenteritis. No focal mesenteric inflammation. No mesenteric lymphadenopathy by size criteria. Semi solid appearing fecal material and some air-fluid levels noted within portions of the colon and rectum. This is abnormal and could be correlated with symptoms and causes of diarrhea. Diagnostic analysis of diarrheal fluid may be helpful. No pericolonic inflammation seen. No evidence of acute diverticulitis seen. Appendix: The appendix is not identified. Clinical correlation is advised. Peritoneal/retroperitoneal: No free intraperitoneal air. No free fluid is seen. Urinary bladder: Mildly distended urinary bladder. No perivesical stranding. Multiple calcifications between 2 to 4 mm are seen along the posterior aspect of the urinary bladder close to the right ureterovesical junction. This could represent recently passed stones or chronic calculi some of which appear to be present previously. No perivesical stranding. Any possibility of mild cystitis to be correlated clinically. Reproductive: Evaluation of pelvic viscera and adnexa is compromised without contrast. Heterogeneous appearing uterus. 3.8 cm soft tissue mass posterior to the uterus of indeterminate significance possibly a fibroid or adnexal lesion. Slight prominence of what may represent the right ovary at 3.7 cm. If there are pelvic symptoms, consider ultrasound. Soft tissues: No body wall soft tissue hematoma or emphysema. Small fat containing inguinal hernias. Osseous: Severe scoliosis of the spine with a fixation angelo. The bones appear demineralized. No acute displaced fracture is seen. CT/CT Chest, Abd, Pelvis WO Cont IMPRESSION: There is no hydronephrosis. Bilateral renal calculi noted. Multiple calculi seen within the urinary bladder. Genitourinary findings discussed above in detail. - Fluid, air-fluid levels and semi solid fecal material within the colon and rect um. This is abnormal to be correlated with symptoms and causes of diarrhea. Other nonspecific gastrointestinal findings as discussed above. There is no free air, free fluid or focal mesenteric inflammation. - Multiple other findings and study limitations discussed above. Reading Location: [id number]
[2025-05-20] MEDS: 0.9% Normal Saline (500mL Bag) 500 ML 1000 ML IV (14:29)
[2025-05-20 14:36] LABS: Hematocrit 34.4 % (37-47); Hemoglobin 11.7 g/dL (12.0-15.0); Immature Granulocytes Count 0.090 X10^3/uL (0.0-0.0); Mean Corp Hgb Conc 34.0 g/dL (32-36); Mean Corpuscular Volume 92.2 fL (81-99); Mean Platelet Vol. 10.2 fl (6.2-12.0); NRBC Flagged by Analyzer 0 % (0-5); Platelet Count 361 K/mm3 (150-450); RBC Distribution Width CV 12.3 % (11.6-14.6); RBC Distribution Width SD 41.2 fl (35.1-43.9); Red Blood Count 3.73 M/mm3 (4.2-5.4); White Blood Count 9.1 K/mm3 (4.4-11.0)
--- NOTE | 2025-05-20 14:43 | EDS_ITS ---
HPI <Dr. Luisa Recinos DO - Last Filed: 05/21/25 08:24> History of Present Illness Chief Complaint: Complaint Informant: parent Narrative Narrative: Patient is a 35-year-old female with significant past medical history including cerebral palsy, trach dependent, neurogenic bladder (is cath twice a day), chronic respiratory failure/vent dependence, seizures, kidney stones, tube feed dependent and recent hospitalization for choledocholithiasis as well as UTI and multifocal pneumonia. She received 4 days of meropenem however she was supposed to have an additional 3 days at home with PICC line. After the fourth infusion mother noticed that she had hives. Patient did not receive any further antibiotics, but mother did speak with infectious disease and who states that she should be fine and did not need different antibiotics. Patient is presenting today with hematuria. Mother catheter and there was red bloody urine present. She also noticed small stone as she strained her urine every time as well. Because of this mother brought her in. Patient also has communicated that she is having pain in her back (on the left side) as well as her lower abdomen. Patient communicates with yes and no signals. Mother is noted that she is continue to have some wheezing intermittently this week but otherwise no acute respiratory symptoms. She has been tolerating her G-tube feeds well. She did have a very large liquid bowel movement prior to arrival but mother states this is not abnormal for her. She does have a history of C. difficile however patient had negative C. difficile test while hospitalized this last time. [facility] <Dr. Luisa Recinos DO - Last Filed: 05/21/25 08:24> [facility] Medical History (Updated 05/21/25 @ 08:[address] Luisa Recinos DO) Multifocal pneumonia Ileus High serum vitamin B12 ESBL (extended spectrum beta-lactamase) producing bacteria infection On tube feeding diet History of Clostridium difficile infection MRSA infection Redness of skin Bladder disease History of renal disease Seizures Dietary restriction On home oxygen therapy Non-smoker Renal calculi Skin tag of vaginal mucosa Renal calculus or stone PICC (peripherally inserted central catheter) in place Bedbound Pancreatitis Kidney stones Ventilator dependent Urinary tract infection due to extended-spectrum beta lactamase (ESBL) producing Escherichia coli Recurrent UTI Staghorn renal calculus Chronic respiratory failure Allergic rhinitis due to other allergen Paraplegia Visual disturbance Amenorrhea Neuromuscular scoliosis Hyperglycemia Vitamin D deficiency Respiratory acidosis Thrush Lactic acid acidosis Bronchitis Irregular menstrual cycle 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 Bronchiectasis without acute exacerbation Severe sepsis Seizure Cerebral palsy Pneumonia Home Medications ?Medication ?Instructions ?Recorded ?Last Taken ?Type baclofen 20 mg tablet 30 mg G-tube TID muscle spas ms 09/02/13 11/02/24 20:30 History oxcarbazepine 300 mg/5 mL (60 8 ml G-tube BID seizure 08/28/17 11/02/24 20:30 History mg/mL) oral suspension (Trileptal) diazepam 5 mg/5 mL (1 mg/mL) oral 5 mg feeding tube DA JANAK@1400 spasms 05/20/21 11/02/24 14:00 History solution diazepam 5 mg/5 mL (1 mg/mL) oral 7 mg feeding tube BI D spasms 05/20/21 11/02/24 20:30 History solution ascorbic acid (vitamin C) 500 mg/5 500 mg feeding tube BID SUPPLEMENT 12/12/21 11/02/24 History mL oral syrup cholecalciferol (vitamin D3) 50 50 mcg feeding tube DA JANAK 12/12/21 11/02/24 History mcg (2,000 unit) capsule SUPPLEMENT ibuprofen 100 mg/5 mL oral 400 mg PO Q6H PRN Pain 04/0 10/0402/24/22 History suspension sodium chloride 0.9 % for 3 - 6 ml inhalation Q2H PRN 12/12/21 02/23/22 History nebulization Congestion levalbuterol HCl 1.25 mg/3 mL 1.25 mg (3 mL) inhalatio n BID 01/16/22 11/02/24 Rx solution for nebulization BREATHING #90 mL acetaminophen 160 mg/5 mL oral 640 mg PO Q4H PRN pain/ fever 03/31/22 Unknown History liquid acidophilus 25 million 1 tab G-tube DAILY supplemen t 03/31/22 11/02/24 History cell-pectin, citrus 100 mg tablet carbamide peroxide 6.5 % ear drops 5 drp EACH EAR ZACHERY Y PRN Ear Wax 03/31/22 Unknown History (Debrox) magnesium hydroxide 400 mg/5 mL 15 - 60 ml PO DAILY MI N 03/31/22 Unknown History oral suspension (Milk of Magnesia) Constipation nystatin 100,000 unit/gram topical 1 applic topical BI D PRN redness 03/31/22 Unknown History powder ferrous sulfate 15 mg iron (75 5 ml feeding tube MOTH supplement 08/24/22 11/02/24 History mg)/mL oral syringe (ORAL USE) docusate sodium 60 mg/15 mL oral 60 mg feeding tube DA JANAK stool 08/29/22 Unknown History syrup softner nutritional supplements 1 ea PO BID Check with prima ry 08/29/22 Unknown History doctor blood sugar diagnostic (True #400 ea 02/23/23 Unknown Rx Metrix Pro Test Strip) cetirizine 5 mg/5 mL oral solution 10 mg (10 mL) PO DA JANAK allergy 03/18/23 11/02/24 Rx symptoms #300 mL fluticasone propionate 44 2 puff inhalation BID breath ing 05/23/24 11/02/24 Rx mcg/actuation HFA aerosol inhaler #10.6 grams (Flovent HFA) levalbuterol HCl 1.25 mg/3 mL 1.25 mg (3 mL) inhalatio n Q4H PRN 05/23/24 Unknown Rx solution for nebulization sob #150 mL insulin glargine 100 unit/mL (3 20 unit (0.2 mL) subcu t QPM sugar 10/24/24 11/01/24 Rx mL) subcutaneous pen (Basaglar #15 mL KwikPen U-100 Insulin) artificial tears(hypromellose) 0.3 1 drp EACH EYE BID PRN dry eyes 11/02/24 Unknown History % eye gel (GenTeal Tears Severe) bacitracin 500 unit/gram topical 1 applic topical 4X/D AY PRN 11/02/24 Unknown History ointment ABRASIONS guaifenesin 100 mg/5 mL oral liquid 200 mg G-tube Q4H PRN thick 11/02/24 Unknown History secretions honey 80 % topical gel ([place] 1 applic topical BID MI N wound 11/02/24 Unknown History Honey) healing hydrocortisone 1 % topical cream 1 applic topical 4X/D AY PRN itching 11/02/24 Unknown History (Ala-Brown) methenamine hippurate 1 gram tablet 1 g PO BID infecti on 11/02/24 11/02/24 History wahxpkvq-ntzq-hohqegq gluconate 9 5 ml PO DAILY supple ment 11/02/24 11/02/24 History mg iron/15 mL (15 mL) oral liquid (Centrum) potassium chloride 20 mEq/15 mL 10 meq PO DAILY supple ment 11/02/24 11/02/24 History oral liquid sodium chloride 0.9 % topical spray 1 applic topical P RN trach care 11/02/24 Unknown History trolamine salicylate 10 % topical 1 applic topical 4X/ DAY PRN muscle 11/02/24 Unknown History cream (Alcis) pain Novolog FlexPen U-100 Insulin 100 18 unit (0.18 mL) conklin bcut .qid 01/29/25 Unknown Rx unit/mL (3 mL) subcutaneous sugar 90 days #33 mL (insulin aspart U-100) pen needle, diabetic 32 gauge x #360 ea 01/29/25 Unkno wn Rx lancets 30 gauge (Embrace Lancets) #200 ea 02/21/25 Un known Rx blood sugar diagnostic (True #150 ea 04/03/25 Unknown Rx Metrix Glucose Test Strip) lancets 33 gauge (OneTouch Delica #200 ea 04/17/25 Unk nown Rx Plus Lancet) lancing device with lancets kit #1 ea 04/17/25 Unknown Rx (OneTouch Delica Plus Lancing Device kit) blood sugar diagnostic (OneTouch #450 ea 05/11/25 Unkn own Rx Ultra Test strips) blood-glucose meter (OneTouch #1 ea 05/11/25 Unknown R x Ultra2 Meter) OXYGEN - Supplemental ([facility] 05/21/25 Unknown History INFORMATIONAL USE ONLY) Allergy/AdvReac Type Severity Reaction Status Date / Time linezolid Allergy Severe Other - Verified 05/20/25 13:11 seizure & coma vancomycin Allergy Severe Other - Verified 05/20/25 13:11 kidney failure tobramycin Allergy Intermediate Other - Verified 05/20/25 13:11 turned beet red ertapenem Allergy Mild Hives Verified 05/20/25 13:11 nafcillin Allergy Mild Rash Verified 05/20/25 13:11 benzoin Allergy Unknown Rash Verified 05/20/25 13:11 milk Allergy Unknown Other Verified 05/20/25 13:11 soy Allergy Unknown Other Verified 05/20/25 13:11 polyethylene glycol 3350 AdvReac Unknown Hives Verified 05/20/25 13:11 (From [employer]) Family History Grandmother Cancer maternal Other Adopted Surgical History Presence of intrathecal baclofen pump Gastrostomy tube in place Status post Jorje fundoplication H/O spinal fusion rods to back surgery on gland under tongue eyes straightened derotatox ostomies tendonatomies Tracheostomy status Social History household members: other details: Mother and is vent dependent housing: house Smoking Status: Never smoker second hand exposure: No alcohol intake: never substance use type: does not use ROS <Dr. Luisa Recinos DO - Last Filed: 05/21/25 08:24> ROS ED ROS Narrative Patient chronically trached Review of Systems ROS Unobtainable: due to mental status EXAM <Dr. Luisa Recinos DO - Last Filed: 05/21/25 08:24> Physical Exam Const Vital Signs: 05/20/25 13:11 05/20/25 13:16 05/20/25 15:00 Temperature 99.4 F H 99.4 F H 99.1 F Temperature Source Axillary Axillary Core Pulse Rate 72 72 60 Respiratory Rate 15 23 H 16 Blood Pressure 143/86 H 143/86 H 124/76 H Blood Pressure Mean 105 105 92 Pulse Ox 100 100 100 Oxygen Delivery Method Mechanical Ventilator Room Air Mechanical Ventilator Oxygen Flow Rate (L/min) 3 05/20/25 16:00 05/20/25 17:00 Temperature 98.5 F 98.1 F Temperature Source Core Core Pulse Rate 63 59 L Respiratory Rate 16 14 Blood Pressure 116/72 126/81 H Blood Pressure Mean 86 96 Pulse Ox 100 98 Oxygen Delivery Method Room Air Room Air Oxygen Flow Rate (L/min) Constitutional Narrative: Chronically ill-appearing, no acute distress HEENT Reports moist mucous membranes Eyes Eyes Narrative: Erratic eye movements, pupils mildly dilated Neck Neck Narrative: Chronic appearing contractures/torticollis present. Tracheostomy in place. Chest Wall inspection of chest normal Resp Resp Narrative: Vent dependent. Course breath sounds throughout. No wheezing appreciated at this time. Auscultation: Negative for diminished lung sounds Cardio regular rate, regular rhythm and no murmurs GI normal to inspection, nondistended, normoactive bowel sounds GI Narrative: No wincing with palpation of the abdomen. Benny G-tube in place. Auscultation: normoactive bowel sounds Extremity Extremity Narrative: Atrophy and contractures of the extremities. Neuro Neuro Narrative: Patient appears to be at her neurologic baseline. Is noncommunicative and not mobile at baseline Sensorium / Orientation: alert Psych mental status grossly normal Skin no rashes or lesions noted and no wounds <Dr. She Mantilla MD - Last Filed: 05/20/25 17:14> Physical Exam Const Vital Signs: 05/20/25 13:11 05/20/25 13:16 05/20/25 15:00 Temperature 99.4 F H 99.4 F H 99.1 F Temperature Source Axillary Axillary Core Pulse Rate 72 72 60 Respiratory Rate 15 23 H 16 Blood Pressure 143/86 H 143/86 H 124/76 H Blood Pressure Mean 105 105 92 Pulse Ox 100 100 100 Oxygen Delivery Method Mechanical Ventilator Room Air Mechanical Ventilator Oxygen Flow Rate (L/min) 3 05/20/25 16:00 05/20/25 17:00 Temperature 98.5 F 98.1 F Temperature Source Core Core Pulse Rate 63 59 L Respiratory Rate 16 14 Blood Pressure 116/72 126/81 H Blood Pressure Mean 86 96 Pulse Ox 100 98 Oxygen Delivery Method Room Air Room Air Oxygen Flow Rate (L/min) MDM <Dr. Luisa Recinos DO - Last Filed: 05/21/25 08:24> [facility] Narrative Medical decision making narrative: Patient is evaluated for hematuria and a small stone with straight cathing today. Patient has a low-grade temperature of 99.4 in the emergency room. She has a significant medical history and recent admission for chol edocholithiasis. Urine culture was positive for ESBL E. coli (80,000-100,000 CFU per mL.). 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 Choledocholithiasis was found and complete removal was performed. In the ER patient has normal vital signs but is of a low-grade temperature of 99.4. She is a poor historian with multiple comorbidities will perform CT of the chest abdomen and pelvis looking for new source of infection and a cause of her hematuria. Patient given Toradol for pain. Patient does have an elevated lactate 2.2. No leukocytosis. Signed out to oncoming physician pending remainder of lab work and CT results for final disposition. History & Record Review Additional record(s) reviewed:: Prior inpatient record and Prior labs Lab Data Labs: Laboratory Results - last 24 hr 05/20/25 05/20/25 05/20/25 14:15 15:10 15:23 WBC 9.1 RBC 3.73 L Hgb 11.7 L Hct 34.4 L MCV 92.2 MCH 31.4 MCHC 34.0 RDW Std Deviation 41.2 RDW Coeff of Anne 12.3 Plt Count 361 MPV 10.2 Immature Gran % (Auto) 1.000 H Neut % (Auto) 72.9 H Lymph % (Auto) 15.1 L Trigg % (Auto) 8.6 Eos % (Auto) 2.0 Baso % (Auto) 0.4 Absolute Neuts (auto) 6.7 Absolute Lymphs (auto) 1.38 Nucleated RBC % 0 Sodium Cancelled 137 Potassium Cancelled 3.8 Chloride Cancelled 103 Carbon Dioxide Cancelled 22.4 Anion Gap Cancelled 12 BUN Cancelled 6 Creatinine Cancelled 0.29 L Estim Creat Clear Calc Cancelled 194.49 Est GFR (MDRD) Non-Af Cancelled 143 BUN/Creatinine Ratio Cancelled 19.6 Glucose Cancelled 144 H Lactic Acid 2.2 H* Calcium Cancelled 8.4 Total Bilirubin Cancelled 0.15 AST Cancelled 25 ALT Cancelled 24 Alkaline Phosphatase Cancelled 65 Total Protein Cancelled 6.6 Albumin Cancelled 3.7 Globulin Cancelled 2.9 Albumin/Globulin Ratio Cancelled 1.3 Lipase Cancelled 33 Urine Color Catherine Urine Clarity Sl. Cloudy Urine pH 8.0 Ur Specific [place] 1.015 Urine Protein 100 H Urine Glucose (UA) Normal Urine Ketones Negative Urine Occult Blood 250 H Urine Nitrite Positive H Urine Bilirubin Negative Urine Urobilinogen Normal Ur Leukocyte Esterase 500 H Urine RBC 25-50 SEEN Urine WBC 25-50 SEEN Ur Squamous Epith Cells 0-5 SEEN Urine Bacteria 4+ Urine Mucus 0 SEEN POC Glucose 05/20/25 15:32 WBC RBC Hgb Hct MCV MCH MCHC RDW Std Deviation RDW Coeff of Anne Plt Count MPV Immature Gran % (Auto) Neut % (Auto) Lymph % (Auto) Trigg % (Auto) Eos % (Auto) Baso % (Auto) Absolute Neuts (auto) Absolute Lymphs (auto) Nucleated RBC % Sodium Potassium Chloride Carbon Dioxide Anion Gap BUN Creatinine Estim Creat Clear Calc Est GFR (MDRD) Non-Af BUN/Creatinine Ratio Glucose Lactic Acid Calcium Total Bilirubin AST ALT Alkaline Phosphatase Total Protein Albumin Globulin Albumin/Globulin Ratio Lipase Urine Color Urine Clarity Urine pH Ur Specific [place] Urine Protein Urine Glucose (UA) Urine Ketones Urine Occult Blood Urine Nitrite Urine Bilirubin Urine Urobilinogen Ur Leukocyte Esterase Urine RBC Urine WBC Ur Squamous Epith Cells Urine Bacteria Urine Mucus POC Glucose 105 Radiography Diagnostic Testing: Clinical Impression(s) from Imaging Studies Chest/Abdomen/Pelvis CT 05/20/25 13:52 IMPRESSION: There is no hydronephrosis. Bilateral renal calculi noted. Multiple calculi seen within the urinary bladder. Genitourinary findings discussed above in detail. - Fluid, air-fluid levels and semi solid fecal material within the colon and rectum. This is abnormal to be correlated with symptoms and causes of diarrhea. Other nonspecific gastrointestinal findings as discussed above. There is no free air, free fluid or focal mesenteric inflammation. - Multiple other findings and study limitations discussed above. Reading Location: [id number] <Dr. She Mantilla MD - Last Filed: 05/20/25 17:14> [facility] Narrative Medical decision making narrative: Patient is evaluated for hematuria and a small stone with straight cathing today. Patient has a low-grade temperature of 99.4 in the emergency room. She has a significant medical history and recent admission for choledocholithiasis. Urine culture was positive for ESBL E. coli (80,000- 100,000 CFU per mL.). 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 Choledocholithiasis was found and complete removal was performed. In the ER patient has normal vital signs but is of a low-grade temperature of 99.4. She is a poor historian with multiple comorbidities will perform CT of the chest abdomen and pelvis looking for new source of infection and a cause of her hematuria. Patient given Toradol for pain. Patient does have an elevated lactate 2.2. No leukocytosis. Signed out to oncoming physician pending remainder of lab work and CT results for final disposition. Patient signed out to me by Dr. Recinos pending lab work and CT. CBC with no leukocytosis, hemoglobin of 11.7 which appears to be baseline for her. CMP with normal kidney function. No TOM. Lipase within normal limits. Urinalysis with evidence of urinary tract infection. Referred to 04/29 urine culture results when she grew ESBL. With multiple drug allergies and few susceptible to antibiotics, pharmacy consulted for recommendations on antibiotic choice. Pharmacy recommended pretreatment with Benadryl and Solu-Medrol and either ertapenem or meropenem. Ct chest, abd, pelvis with no hydronephrosis. Bilateral renal calculi noted with multiple foci seen within the urinary bladder. Discussed findings with mother at bedside. Recommended admission for IV antibiotics for her UTI. Mother is agreeable. Patient will be admitted to the hospitalist for further management. Admitted to Dr. Ray for further managment for IV abx and ID consultation. Clinical impression Urinary tract infection Lab Data Attestation: I reviewed the patient's lab results. Labs: Laboratory Results - last 24 hr 05/20/25 05/20/25 05/20/25 14:15 15:10 15:23 WBC 9.1 RBC 3.73 L Hgb 11.7 L Hct 34.4 L MCV 92.2 MCH 31.4 MCHC 34.0 RDW Std Deviation 41.2 RDW Coeff of Anne 12.3 Plt Count 361 MPV 10.2 Immature Gran % (Auto) 1.000 H Neut % (Auto) 72.9 H Lymph % (Auto) 15.1 L Trigg % (Auto) 8.6 Eos % (Auto) 2.0 Baso % (Auto) 0.4 Absolute Neuts (auto) 6.7 Absolute Lymphs (auto) 1.38 Nucleated RBC % 0 Sodium Cancelled 137 Potassium Cancelled 3.8 Chloride Cancelled 103 Carbon Dioxide Cancelled 22.4 Anion Gap Cancelled 12 BUN Cancelled 6 Creatinine Cancelled 0.29 L Estim Creat Clear Calc Cancelled 194.49 Est GFR (MDRD) Non-Af Cancelled 143 BUN/Creatinine Ratio Cancelled 19.6 Glucose Cancelled 144 H Lactic Acid 2.2 H* Calcium Cancelled 8.4 Total Bilirubin Cancelled 0.15 AST Cancelled 25 ALT Cancelled 24 Alkaline Phosphatase Cancelled 65 Total Protein Cancelled 6.6 Albumin Cancelled 3.7 Globulin Cancelled 2.9 Albumin/Globulin Ratio Cancelled 1.3 Lipase Cancelled 33 Urine Color Catherine Urine Clarity Sl. Cloudy Urine pH 8.0 Ur Specific [place] 1.015 Urine Protein 100 H Urine Glucose (UA) Normal Urine Ketones Negative Urine Occult Blood 250 H Urine Nitrite Positive H Urine Bilirubin Negative Urine Urobilinogen Normal Ur Leukocyte Esterase 500 H Urine RBC 25-50 SEEN Urine WBC 25-50 SEEN Ur Squamous Epith Cells 0-5 SEEN Urine Bacteria 4+ Urine Mucus 0 SEEN POC Glucose 05/20/25 15:32 WBC RBC Hgb Hct MCV MCH MCHC RDW Std Deviation RDW Coeff of Anne Plt Count MPV Immature Gran % (Auto) Neut % (Auto) Lymph % (Auto) Trigg % (Auto) Eos % (Auto) Baso % (Auto) Absolute Neuts (auto) Absolute Lymphs (auto) Nucleated RBC % Sodium Potassium Chloride Carbon Dioxide Anion Gap BUN Creatinine Estim Creat Clear Calc Est GFR (MDRD) Non-Af BUN/Creatinine Ratio Glucose Lactic Acid Calcium Total Bilirubin AST ALT Alkaline Phosphatase Total Protein Albumin Globulin Albumin/Globulin Ratio Lipase Urine Color Urine Clarity Urine pH Ur Specific [place] Urine Protein Urine Glucose (UA) Urine Ketones Urine Occult Blood Urine Nitrite Urine Bilirubin Urine Urobilinogen Ur Leukocyte Esterase Urine RBC Urine WBC Ur Squamous Epith Cells Urine Bacteria Urine Mucus POC Glucose 105 Radiography Diagnostic Testing: Clinical Impression(s) from Imaging Studies Chest/Abdomen/Pelvis CT 05/20/25 13:52 IMPRESSION: There is no hydronephrosis. Bilateral renal calculi noted. Multiple calculi seen within the urinary bladder. Genitourinary findings discussed above in detail. - Fluid, air-fluid levels and semi solid fecal material within the colon and rectum. This is abnormal to be correlated with symptoms and causes of diarrhea. Other nonspecific gastrointestinal findings as discussed above. There is no free air, free fluid or focal mesenteric inflammation. - Multiple other findings and study limitations discussed above. Reading Location: [id number] Discharge Plan Dx/Rx/DC Orders Clinical Impression: Ureterolithiasis, Chronic respiratory failure, History of Clostridium difficile colitis, History of ESBL E. coli infection, Ventilator dependence, History of cerebral palsy, UTI (urinary tract infection) Disposition Disposition: Acute Care Hospital [facility] Discharge Date/Time: 05/20/25 18:24
[2025-05-20 15:33] LABS: Mucous, Urine 0 SEEN /hpf (<or=2+)
[2025-05-20 15:35] LABS: Color, Urine Amber (Yellow); Glucose, Dipstick Normal (Normal); Ketone-Dipstick Negative (Negative); Leukocyte Esterase-Dipstick 500 /ul (Negative); Nitrite-Dipstick Positive (Negative); Occult Blood-Urine 250 /ul (Negative); Protein-Dipstick 100 mg/dl (Negative); Specific Gravity, Urine 1.015 (1.002-1.030); Urine Bilirubin Dipstick Negative (Negative)
[2025-05-20 15:49] LABS: Lipase 33 U/L (13-75)
[2025-05-20 15:51] LABS: AST(SGOT) 25 U/L (<=31); Alanine Aminotransfer ALT/SGPT 24 U/L (<=34); Albumin, Serum 3.7 g/dL (3.5-5.0); Alkaline Phosphatase 65 U/L (35-104); Anion Gap 12 (5-15); BUN 6 mg/dL (4-19); BUN/Creat Ratio 19.6 RATIO (10-20); Calcium,Total 8.4 mg/dL (7.6-11.0); Carbon Dioxide 22.4 mmol/L (21.0-32.0); Chloride 103 mmol/L (98-108); Estimated Creatinine Clearance 194.49 ml/min (50-250); Globulin 2.9 g/dL (2.2-4.2); Glucose 144 mg/dL (70-99); Potassium 3.8 mmol/L (3.3-5.1)
[2025-05-20 15:57] LABS: Red Blood Cells-Urine 25-50 SEEN /hpf (0-5); Squamous Epithelial Cells - UA 0-5 SEEN /hpf (5-10)
[2025-05-20] MEDS: Meropenem 1 GM in 0.9% Normal Saline (100mL MB+) 100 ML IV (17:54)
--- NOTE | 2025-05-20 17:54 | PCM.HP.STD ---
HPI - General General Date of Admission: 05/20/25 Date of Service: 05/20/25 Chief Complaint: Hematuria HPI Narrative MANDY RIVERA, is a 35-year-old female with history of cerebral palsy, diabetes, trach dependent, neurogenic bladder with caths twice a day, chronic respiratory failure/vent dependent, seizures, kidney stones, PEG with tube feed dependent presented to [facility] ED 05/20/2025 with hematuria. She recently was hospitalized for choledocholithiasis as well as UTI and multifocal pneumonia and received 4 days of Merrem however she is supposed to have an additional 3 days home with PICC line but after the fourth infusion mother noted she had hives. She did not receive any further antibiotics. Today mother reports she catheterized her and she had hematuria and also had a small stone in her urine so mother brought her in. Reportedly patient also communicated that she is having pain in her back on the left side and lower abdomen she has been tolerating her tube feeds well but did have a very large liquid bowel movement prior to arrival though this is not necessarily abnormal for her. In the ED temp 99.4, heart rate 72 and blood pressure 143/86, respiratory rate 15 and patient 100% on her mechanical ventilation. CBC with white count of 9.1, hemoglobin 11.7, lipase 33, CMP with BUN of 6, creatinine 0.29 and glucose 144, lactic acid 2.2. UA with nitrite, leuk esterase and bacteria. Chest/abdomen/pelvis CT without contrast obtained and showed bilateral renal calculi with multiple calculi in the urinary bladder, no hydronephrosis, fluid and semisolid fecal material in the colon and rectum which could be indicative of diarrhea without any free air or free fluid. Given patient's recurrent UTI and need for IV antibiotics hospitalist contacted for admission. Patient evaluated bedside with mother present, history as above, urination was normal yesterday and today was red-tinged. Asked about the antibiotics, she notes patient had done okay on the Merrem before discharge and then the next day when she went home and got the ertapenem she developed hives just on her face with no change in breathing or any other concerns but the hives were significant and were right after she was given the ertapenem, denies this ever happening before. No other new medications at that time. Only other complaint mother reports that she has had increased diarrhea over the past couple of weeks with liquidy stools which she does get occasionally but now it is frequent. [facility] Medical History (Updated 05/22/25 @ 12:[address] Samaria Anaya MD) Allergic rhinitis due to other allergen Amenorrhea Bedbound Bladder disease Bronchiectasis without acute exacerbation Bronchitis Cerebral palsy Chronic respiratory failure Dietary restriction ESBL (extended spectrum beta-lactamase) producing bacteria infection High serum vitamin B12 History of Clostridium difficile infection History of renal disease Hyperglycemia Ileus Irregular menstrual cycle Kidney stones Lactic acid acidosis Mild mental retardation MRSA infection Multifocal pneumonia Neuromuscular scoliosis Non-smoker On home oxygen therapy On tube feeding diet Pancreatitis Paraplegia PICC (peripherally inserted central catheter) in place Pneumonia Recurrent UTI Redness of skin Renal calculi Renal calculus or stone Respiratory acidosis Seizure Seizures Severe sepsis Skin tag of vaginal mucosa 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 Thrush Urinary tract infection due to extended-spectrum beta lactamase (ESBL) producing Escherichia coli Ventilator dependent Visual disturbance Vitamin D deficiency Home Medications ?Medication ?Instructions ?Recorded ?Last Taken ?Type baclofen 20 mg tablet 30 mg G-tube TID muscle spasms 09/02/13 11/02/24 20:30 History oxcarbazepine 300 mg/5 mL (60 8 ml G-tube BID seizure 08/28/17 11/02/24 20:30 History mg/mL) oral suspension (Trileptal) diazepam 5 mg/5 mL (1 mg/mL) oral 5 mg feeding tube DAILY@1400 spasms 05/20/21 11/02/24 14:00 History solution diazepam 5 mg/5 mL (1 mg/mL) oral 7 mg feeding tube BID spasms 05/20/21 11/02/24 20:30 History solution ascorbic acid (vitamin C) 500 mg/5 500 mg feeding tube BID SUPPLEMENT 12/12/21 11/02/24 History mL oral syrup cholecalciferol (vitamin D3) 50 50 mcg feeding tube DAILY 12/12/21 11/02/24 History mcg (2,000 unit) capsule SUPPLEMENT ibuprofen 100 mg/5 mL oral 400 mg PO Q6H PRN Pain 12/12/21 02/24/22 History suspension sodium chloride 0.9 % for 3 - 6 ml inhalation Q2H PRN 12/12/21 02/23/22 History nebulization Congestion levalbuterol HCl 1.25 mg/3 mL 1.25 mg (3 mL) inhalation BID 01/16/22 11/02/24 Rx solution for nebulization BREATHING #90 mL acetaminophen 160 mg/5 mL oral 640 mg PO Q4H PRN pain/fever 03/31/22 Unknown History liquid acidophilus 25 million 1 tab G-tube DAILY supplement 03/31/22 11/02/24 History cell-pectin, citrus 100 mg tablet carbamide peroxide 6.5 % ear drops 5 drp EACH EAR DAILY PRN Ear Wax 03/31/22 Unknown History (Debrox) magnesium hydroxide 400 mg/5 mL 15 - 60 ml PO DAILY PRN 03/31/22 Unknown History oral suspension (Milk of Magnesia) Constipation nystatin 100,000 unit/gram topical 1 applic topical BID PRN redness 03/31/22 Unknown History powder ferrous sulfate 15 mg iron (75 5 ml feeding tube MOTH supplement 08/24/22 11/02/24 History mg)/mL oral syringe (ORAL USE) docusate sodium 60 mg/15 mL oral 60 mg feeding tube DAILY stool 08/29/22 Unknown History syrup softner nutritional supplements 1 ea PO BID Check with primary 08/29/22 Unknown History doctor blood sugar diagnostic (True #400 ea 02/23/23 Unknown Rx Metrix Pro Test Strip) cetirizine 5 mg/5 mL oral solution 10 mg (10 mL) PO DAILY allergy 03/18/23 11/02/24 Rx symptoms #300 mL fluticasone propionate 44 2 puff inhalation BID breathing 05/23/24 11/02/24 Rx mcg/actuation HFA aerosol inhaler #10.6 grams (Flovent HFA) levalbuterol HCl 1.25 mg/3 mL 1.25 mg (3 mL) inhalation Q4H PRN 05/23/24 Unknown Rx solution for nebulization sob #150 mL insulin glargine 100 unit/mL (3 20 unit (0.2 mL) subcut QPM sugar 10/24/24 11/01/24 Rx mL) subcutaneous pen (Basaglar #15 mL KwikPen U-100 Insulin) artificial tears(hypromellose) 0.3 1 drp EACH EYE BID PRN dry eyes 11/02/24 Unknown History % eye gel (GenTeal Tears Severe) bacitracin 500 unit/gram topical 1 applic topical 4X/DAY PRN 11/02/24 Unknown History ointment ABRASIONS guaifenesin 100 mg/5 mL oral liquid 200 mg G-tube Q4H PRN thick 11/02/24 Unknown History secretions honey 80 % topical gel ([place] 1 applic topical BID PRN wound 11/02/24 Unknown History Honey) healing hydrocortisone 1 % topical cream 1 applic topical 4X/DAY PRN itching 11/02/24 Unknown History (Ala-Brown) methenamine hippurate 1 gram tablet 1 g PO BID infection 11/02/24 11/02/24 History Held on 05/22/25. Instructions: Resume on 05/28/25. [id number] gluconate 9 5 ml PO DAILY supplement 11/02/24 11/02/24 History mg iron/15 mL (15 mL) oral liquid (Centrum) potassium chloride 20 mEq/15 mL 10 meq PO DAILY supplement 11/02/24 11/02/24 History oral liquid sodium chloride 0.9 % topical spray 1 applic topical PRN trach care 11/02/24 Unknown History trolamine salicylate 10 % topical 1 applic topical 4X/DAY PRN muscle 11/02/24 Unknown History cream (Alcis) pain Novolog FlexPen U-100 Insulin 100 18 unit (0.18 mL) subcut .qid 01/29/25 Unknown Rx unit/mL (3 mL) subcutaneous sugar 90 days #33 mL (insulin aspart U-100) pen needle, diabetic 32 gauge x #360 ea 01/29/25 Unknown Rx lancets 30 gauge (Embrace Lancets) #200 ea 02/21/25 Unknown Rx blood sugar diagnostic (True #150 ea 04/03/25 Unknown Rx Metrix Glucose Test Strip) lancets 33 gauge (OneTouch Delica #200 ea 04/17/25 Unknown Rx Plus Lancet) lancing device with lancets kit #1 ea 04/17/25 Unknown Rx (Advanced Cardiac TherapeuticsTouch Delica Plus Lancing Device kit) blood sugar diagnostic (Advanced Cardiac TherapeuticsTouch #450 ea 05/11/25 Unknown Rx Ultra Test strips) blood-glucose meter (OneTouch #1 ea 05/11/25 Unknown Rx Ultra2 Meter) OXYGEN - Supplemental ([facility] 05/21/25 Unknown History INFORMATIONAL USE ONLY) meropenem 1 gram intravenous 1 g IV Q8 6 days #17 ea 05/22/25 Unknown Rx solution Allergy/AdvReac Type Severity Reaction Status Date / Time linezolid Allergy Severe Other - Verified 05/20/25 13:11 seizure & coma vancomycin Allergy Severe Other - Verified 05/20/25 13:11 kidney failure tobramycin Allergy Intermediate Other - Verified 05/20/25 13:11 turned beet red ertapenem Allergy Mild Hives Verified 05/20/25 13:11 nafcillin Allergy Mild Rash Verified 05/20/25 13:11 benzoin Allergy Unknown Rash Verified 05/20/25 13:11 milk Allergy Unknown Other Verified 05/20/25 13:11 soy Allergy Unknown Other Verified 05/20/25 13:11 polyethylene glycol 3350 AdvReac Unknown Hives Verified 05/20/25 13:11 (From Miralax) Family History Grandmother Cancer maternal Other Adopted Surgical History derotatox ostomies eyes straightened Gastrostomy tube in place H/O spinal fusion Presence of intrathecal baclofen pump rods to back Status post Jorje fundoplication surgery on gland under tongue tendonatomies Tracheostomy status Social History household members: other details: Mother and is vent dependent housing: house Smoking Status: Never smoker second hand exposure: No alcohol intake: never substance use type: does not use ROS ROS Narrative Unable to obtain ROS secondary to patient mental status Vital Signs Vital Signs Vital Signs: 05/20/25 13:11 05/20/25 13:16 05/20/25 15:00 Temperature 99.4 F H 99.4 F H 99.1 F Temperature Source Axillary Axillary Core Pulse Rate 72 72 60 Respiratory Rate 15 23 H 16 Blood Pressure 143/86 H 143/86 H 124/76 H Blood Pressure Mean 105 105 92 Pulse Ox 100 100 100 Oxygen Delivery Method Mechanical Ventilator Room Air Mechanical Ventilator Oxygen Flow Rate (L/min) 3 05/20/25 16:00 05/20/25 17:00 Temperature 98.5 F 98.1 F Temperature Source Core Core Pulse Rate 63 59 L Respiratory Rate 16 14 Blood Pressure 116/72 126/81 H Blood Pressure Mean 86 96 Pulse Ox 100 98 Oxygen Delivery Method Room Air Room Air Oxygen Flow Rate (L/min) Weight Weight: 47.7 kg Body Mass Index (BMI) 24.4 Physical Exam Narrative General: Awake, alert, unable to answer orientation questions HEENT: Atraumatic, normocephalic Eyes: Anicteric Neck: Supple Respiratory: Transmitted upper airway sounds, normal respiratory effort Cardiovascular: Regular rate and rhythm GI: Soft, nondistended Extremities: No significant peripheral edema Musculoskeletal: Patient with chronic contractures and scoliosis Neuro: Patient with CP and baseline neurological changes Skin: No rashes appreciated Psych: Unable to cooperate given mental status Results Lab / Micro Data 05/22/25 04:12 05/22/25 04:12 Labs: Laboratory Results - last 24 hr 05/20/25 14:15: WBC 9.1, RBC 3.73 L, Hgb 11.7 L, Hct 34.4 L, MCV 92.2, MCH 31.4, MCHC 34.0, RDW Std Deviation 41.2, RDW Coeff of Anne 12.3, Plt Count 361, MPV 10.2, Immature Gran % (Auto) 1.000 H, Neut % (Auto) 72.9 H, Lymph % (Auto) 15.1 L, [place] % (Auto) 8.6, Eos % (Auto) 2.0, Baso % (Auto) 0.4, Absolute Neuts (auto) 6.7, Absolute Lymphs (auto) 1.38, Nucleated RBC % 0, Sodium Cancelled, Potassium Cancelled, Chloride Cancelled, Carbon Dioxide Cancelled, Anion Gap Cancelled, BUN Cancelled, Creatinine Cancelled, Estim Creat Clear Calc Cancelled, Est GFR (MDRD) Non-Af Cancelled, BUN/Creatinine Ratio Cancelled, Glucose Cancelled, Lactic Acid 2.2 H*, Calcium Cancelled, Total Bilirubin Cancelled, AST Cancelled, ALT Cancelled, Alkaline Phosphatase Cancelled, Total Protein Cancelled, Albumin Cancelled, Globulin Cancelled, Albumin/Globulin Ratio Cancelled, Lipase Cancelled 05/20/25 15:10: Urine Color Catherine, Urine Clarity Sl. Cloudy, Urine pH 8.0, Ur Specific [place] 1.015, Urine Protein 100 H, Urine Glucose (UA) Normal, Urine Ketones Negative, Urine Occult Blood 250 H, Urine Nitrite Positive H, Urine Bilirubin Negative, Urine Urobilinogen Normal, Ur Leukocyte Esterase 500 H, Urine RBC 25-50 SEEN, Urine WBC 25-50 SEEN, Ur Squamous Epith Cells 0-5 SEEN, Urine Bacteria 4+, Urine Mucus 0 SEEN 05/20/25 15:23: Sodium 137, Potassium 3.8, Chloride 103, Carbon Dioxide 22.4, Anion Gap 12, BUN 6, Creatinine 0.29 L, Estim Creat Clear Calc 194.49, Est GFR (MDRD) Non-Af 143, BUN/Creatinine Ratio 19.6, Glucose 144 H, Calcium 8.4, Total Bilirubin 0.15, AST 25, ALT 24, Alkaline Phosphatase 65, Total Protein 6.6, Albumin 3.7, Globulin 2.9, Albumin/Globulin Ratio 1.3, Lipase 33 05/20/25 15:32: POC Glucose 105 Imaging Radiology Impression Chest/Abdomen/Pelvis CT 05/20/25 13:52 IMPRESSION: There is no hydronephrosis. Bilateral renal calculi noted. Multiple calculi seen within the urinary bladder. Genitourinary findings discussed above in detail. - Fluid, air-fluid levels and semi solid fecal material within the colon and rectum. This is abnormal to be correlated with symptoms and causes of diarrhea. Other nonspecific gastrointestinal findings as discussed above. There is no free air, free fluid or focal mesenteric inflammation. - Multiple other findings and study limitations discussed above. Reading Location: [id number] Assessment & Plan Assessment/Plan (1) UTI (urinary tract infection): PLAN: Plan # Recurrent urinary tract infection -UA suggestive of UTI -Patient with history of ESBL UTI -Patient had tolerated ertapenem while hospitalized last time and only reacted when she was switched to ertapenem, feel benefits outweigh risks of trialing Merrem without given concomitant Benadryl and steroids, if patient has a reaction can give these will trial and Merrem at this time -Will consult ID for further assistance # Diarrhea -Diarrhea not necessarily uncommon for patient however it has been more liquid daily and more frequent over the past couple of weeks, CT did show fluid and semisolid fecal material which could correlate with the diarrhea -Given recent antibiotic use and history of C. difficile will check C. difficile -Also check enteric panel -IVF # Kidney stones -Small stones seen on CT scan without any hydronephrosis or active obstruction -Will hydrate with IV fluids #Type 2 diabetes mellitus -Glucose checks and sliding scale insulin # Cerebral palsy, chronic tracheostomy, PEG tube -Supportive care, continue home tube feeds and ventilation -Continue home baclofen and diazepam #Seizure disorder -Presently maintained on Trileptal -Continue home regimen # Chronic hypoxic respiratory failure -Continue inhalers -Continue home ventilation #DVT ppx: SCDs Shanice Ray MD Charges/Coding Visit Charges Inpatient E&M: 31072 Init Hosp L2
[2025-05-20 18:23] LABS: Reflex Lactate? Y
[2025-05-20] MEDS: 0.9% Normal Saline (1000mL) 1,000 ML 50 ML IV (20:18)
[2025-05-20] MEDS: 0.9% Saline Lock 10 ML Syringe IV (20:20)
[2025-05-20] MEDS: DIAZEPAM 5 MG/5 ML 7 MG GT (22:48)
[2025-05-21] VITALS (8 sets, daily range): BP systolic 113–130; BP diastolic 61–78; PULSE 68–78; RESP 14–18; TEMP 36.8–37.7; O2SAT 99–100
[2025-05-21] MEDS: Meropenem 1 GM in 0.9% Normal Saline (100mL MB+) 100 ML IV ×3 (05:50→21:07)
[2025-05-21 07:04] LABS: Hematocrit 29.6 % (37-47); Hemoglobin 10.3 g/dL (12.0-15.0); Immature Granulocytes Count 0.040 X10^3/uL (0.0-0.0); Mean Corp Hgb Conc 34.8 g/dL (32-36); Mean Corpuscular Volume 92.2 fL (81-99); Mean Platelet Vol. 9.7 fl (6.2-12.0); NRBC Flagged by Analyzer 0 % (0-5); Platelet Count 301 K/mm3 (150-450); RBC Distribution Width CV 12.4 % (11.6-14.6); RBC Distribution Width SD 41.7 fl (35.1-43.9); Red Blood Count 3.21 M/mm3 (4.2-5.4); White Blood Count 8.2 K/mm3 (4.4-11.0)
[2025-05-21] MEDS: Albuterol 2.5 MG/3 ML VIAL.NEB. INHALATION ×2 (07:09→20:02)
[2025-05-21] MEDS: Budesonide Respules 0.5 MG/2 ML AMPUL.NEB. INHALATION ×2 (07:09→20:02)
[2025-05-21 07:31] LABS: Anion Gap 11 (5-15); BUN 8 mg/dL (4-19); BUN/Creat Ratio 32.5 RATIO (10-20); Calcium,Total 9.2 mg/dL (7.6-11.0); Carbon Dioxide 23.2 mmol/L (21.0-32.0); Chloride 104 mmol/L (98-108); Estimated Creatinine Clearance 225.60 ml/min (50-250); Glucose 110 mg/dL (70-99); Potassium 4.1 mmol/L (3.3-5.1)
--- NOTE | 2025-05-21 09:23 | PN.HOSP_ITS ---
Reason for Visit Chief Complaint: Hematuria Subjective Subjective No issues overnight. Objective Data Objective Data Vital Signs: Vital Signs Temp Pulse Resp BP Pulse Ox O2 Del Method O2 Flow Rate 37.0 C 69 18 113/61 99 Mechanical Ventilator 3 05/21/25 05:37 05/21/25 07:09 05/21/25 07:09 05/21/25 05:37 05/21/25 07:09 05/21/25 07:09 05/21/25 07:09 Oxygen Flow Rate (L/min) 3 Oxygen Delivery Method Mechanical Ventilator Weight: 47.7 kg Body Mass Index (BMI) 24.4 Intake & Output: Intake and Output for Last 24 Hours 05/19/25 05/20/25 05/21/25 23:59 23:59 23:59 Intake Total 640 / 640 500 / 500 Output Total 600 / 600 275 / 275 Balance 40 / 40 225 / 225 Lab / Micro Data 05/21/25 06:52 05/21/25 06:52 Labs: Laboratory Results - last 24 hr 05/20/25 14:15: WBC 9.1, RBC 3.73 L, Hgb 11.7 L, Hct 34.4 L, MCV 92.2, MCH 31.4, MCHC 34.0, RDW Std Deviation 41.2, RDW Coeff of Anne 12.3, Plt Count 361, MPV 10.2, Immature Gran % (Auto) 1.000 H, Neut % (Auto) 72.9 H, Lymph % (Auto) 15.1 L, [place] % (Auto) 8.6, Eos % (Auto) 2.0, Baso % (Auto) 0.4, Absolute Neuts (auto) 6.7, Absolute Lymphs (auto) 1.38, Nucleated RBC % 0, Sodium Cancelled, Potassium Cancelled, Chloride Cancelled, Carbon Dioxide Cancelled, Anion Gap Cancelled, BUN Cancelled, Creatinine Cancelled, Estim Creat Clear Calc Cancelled, Est GFR (MDRD) Non-Af Cancelled, BUN/Creatinine Ratio Cancelled, Glucose Cancelled, L actic Acid 2.2 H*, Calcium Cancelled, Total Bilirubin Cancelled, AST Cancelled, ALT Cancelled, Alkaline Phosphatase Cancelled, Total Protein Cancelled, Albumin Cancelled, Globulin Cancelled, Albumin/Globulin Ratio Cancelled, Lipase Cancelled 05/20/25 15:10: Urine Color Catherine, Urine Clarity Sl. Cloudy, Urine pH 8.0, Ur Specific [place] 1.015, Urine Protein 100 H, Urine Glucose (UA) Normal, Urine Ketones Negative, Urine Occult Blood 250 H, Urine Nitrite Positive H, Urine Bilirubin Negative, Urine Urobilinogen Normal, Ur Leukocyte Esterase 500 H, Urine RBC 25-50 SEEN, Urine WBC 25-50 SEEN, Ur Squamous Epith Cells 0-5 SEEN, Urine Bacteria 4+, Urine Mucus 0 SEEN 05/20/25 15:23: Sodium 137, Potassium 3.8, Chloride 103, Carbon Dioxide 22.4, Anion Gap 12, BUN 6, Creatinine 0.29 L, Estim Creat Clear Calc 194.49, Est GFR (MDRD) Non-Af 143, BUN/Creatinine Ratio 19.6, Glucose 144 H, Calcium 8.4, Total Bilirubin 0.15, AST 25, ALT 24, Alkaline Phosphatase 65, Total Protein 6.6, Albumin 3.7, Globulin 2.9, Albumin/Globulin Ratio 1.3, Lipase 33 05/20/25 15:32: POC Glucose 105 05/20/25 18:14: POC Glucose 237 H 05/20/25 18:51: Lactic Acid 2.6 H* 05/20/25 23:06: POC Glucose 83 05/21/25 05:53: POC Glucose 117 H 05/21/25 06:52: WBC 8.2, RBC 3.21 L, Hgb 10.3 L, Hct 29.6 L, MCV 92.2, MCH 32.1 H, MCHC 34.8, RDW Std Deviation 41.7, RDW Coeff of Anne 12.4, Plt Count 301, MPV 9.7, Immature Gran % (Auto) 0.500, Neut % (Auto) 72.1 H, Lymph % (Auto) 15.2 L, [place] % (Auto) 8.6, Eos % (Auto) 3.4, Baso % (Auto) 0.2, Absolute Neuts (auto) 5.9, Absolute Lymphs (auto) 1.25, Nucleated RBC % 0, Sodium 138, Potassium 4.1, Chloride 104, Carbon Dioxide 23.2, Anion Gap 11, BUN 8, Creatinine 0.25 L, Estim Creat Clear Calc 225.60, Est GFR (MDRD) Non-Af 148, BUN/Creatinine Ratio 32.5 H, Glucose 110 H, Calcium 9.2 Micro: Microbiology 05/20/25 15:10 Urine Catheter - Saba Urine Culture - Preliminary GNR lactose [employer] Radiography Diagnostic Testing: Radiology Impression Chest/Abdomen/Pelvis CT 05/20/25 13:52 IMPRESSION: There is no hydronephrosis. Bilateral renal calculi noted. Multiple calculi seen within the urinary bladder. Genitourinary findings discussed above in detail. - Fluid, air-fluid levels and semi solid fecal material within the colon and rectum. This is abnormal to be correlated with symptoms and causes of diarrhea. Other nonspecific gastrointestinal findings as discussed above. There is no free air, free fluid or focal mesenteric inflammation. - Multiple other findings and study limitations discussed above. Reading Location: [id number] Physical Exam Narrative Saba catheter in place. Const alert and no apparent distress Constitutional Narrative: on ventilator. no respiratory distress. Neck Neck Narrative: tracheostomy. hyperextended. neck. Resp Resp Narrative: coarse breath sounds bilaterally. Cardio regular rate, regular rhythm, S1 normal heart sound and S2 normal heart sound GI normal to inspection, nondistended, normoactive bowel sounds, soft to palpation, non-tender and non-distended GI Narrative: PEG button in LUQ. Extremity Extremity Narrative: atrophied. Neuro Sensorium / Orientation: awake Assessment & Plan Assessment/Plan (1) UTI (urinary tract infection): PLAN: Plan Recurrent urinary tract infection * Patient with history of ESBL UTI * Patient had tolerated ertapenem while hospitalized last time and only reacted when she was switched to ertapenem, feel benefits outweigh risks of trialing Merrem without given concomitant Benadryl and steroids, if patient has a reaction can give these will trial and Merrem at this time * Will consult ID for further assistance * pt straight cathed at home, currently has saba catheter here. This will be discontinued upon discharge. Diarrhea * Diarrhea not necessarily uncommon for patient however it has been more liquid daily and more frequent over the past couple of weeks, CT did show fluid and semisolid fecal material which could correlate with the diarrhea * Given recent antibiotic use and history of C. difficile will check C. difficile * -Also check enteric panel Chronic conditions: * Kidney stones: Small stones seen on CT scan without any hydronephrosis or active obstruction. Consider evaluation if concern for infected nidus from the stones. * Type 2 diabetes mellitus-Glucose checks and sliding scale insulin * Cerebral palsy, chronic tracheostomy, PEG tube-Supportive care, continue home tube feeds and ventilation-Continue home baclofen and diazepam * Seizure disorder-Presently maintained on Trileptal-Continue home regimen * Chronic hypoxic respiratory failure-Continue inhalers-Continue home ventilation * protein calorie malnutrition: family managing her tube feeds. I advised her mother, that the hospital can manage them, but declined that for now. DVT ppx: SCDs Charges/Coding Visit Charges Inpatient E&M: 27204 Subs Hosp L2
[2025-05-21] MEDS: Potassium Chloride Oral Soln 20 MEQ/15 ML UDC 10 MEQ PO (09:54)
[2025-05-21] MEDS: OXCARBAZEPINE 300 MG/5 ML 8 MG GT ×2 (09:55→21:07)
[2025-05-21] MEDS: DIAZEPAM 5 MG/5 ML 7 MG GT ×2 (10:02→21:09)
--- NOTE | 2025-05-21 10:18 | CON.PCM.ID_ITS ---
Assessment & Plan Assessment/Plan (1) Diarrhea: QUALIFIERS: Diarrhea type: presumed infectious Qualified Code(s): R19.7 - Diarrhea, unspecified (2) History of ESBL E. coli infection: (3) History of cerebral palsy: (4) Ventilator dependence: (5) UTI (urinary tract infection): PLAN: Cxs pending. With stones and hematuria, will consult her urologist. Cont meropenem for now. Stool pcr pending. Will follow, thank you (6) Chronic respiratory failure: QUALIFIERS: Respiratory failure complication: hypoxia Qualified Code(s): J96.11 - Chronic respiratory failure with hypoxia HPI Consult Data Date of Consult: 05/21/25 HPI Narrative Reason for Consultation: uti HPI Narrative: MANDY RIVERA, is a 35 F with cerebral palsy, vent dependent, neurogenic bladder, recurrent stones and uti, presented to ED 05/20 with acute onset hematuria, some mild abd pain, no fever or chills. Some increase in baseline diarrhea. Recent admit with esbl uti, developed hives while on ertapenem while at home. Now admitted on meropenem. ROS unobtainable due to nonverbal [facility] Medical History Multifocal pneumonia Ileus High serum vitamin B12 ESBL (extended spectrum beta-lactamase) producing bacteria infection On tube feeding diet History of Clostridium difficile infection MRSA infection Redness of skin Bladder disease History of renal disease Seizures Dietary restriction On home oxygen therapy Non-smoker Renal calculi Skin tag of vaginal mucosa Renal calculus or stone PICC (peripherally inserted central catheter) in place Bedbound Pancreatitis Kidney stones Ventilator dependent Urinary tract infection due to extended-spectrum beta lactamase (ESBL) producing Escherichia coli Recurrent UTI Staghorn renal calculus Chronic respiratory failure Allergic rhinitis due to other allergen Paraplegia Visual disturbance Amenorrhea Neuromuscular scoliosis Hyperglycemia Vitamin D deficiency Respiratory acidosis Thrush Lactic acid acidosis Bronchitis Irregular menstrual cycle 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 Bronchiectasis without acute exacerbation Severe sepsis Seizure Cerebral palsy Pneumonia Home Medications ?Medication ?Instructions ?Recorded ?Last Taken ?Type baclofen 20 mg tablet 30 mg G-tube TID muscle spas ms 09/02/13 11/02/24 20:30 History oxcarbazepine 300 mg/5 mL (60 8 ml G-tube BID seizure 08/28/17 11/02/24 20:30 History mg/mL) oral suspension (Trileptal) diazepam 5 mg/5 mL (1 mg/mL) oral 5 mg feeding tube DA JANAK@1400 spasms 05/20/21 11/02/24 14:00 History solution diazepam 5 mg/5 mL (1 mg/mL) oral 7 mg feeding tube BI D spasms 05/20/21 11/02/24 20:30 History solution ascorbic acid (vitamin C) 500 mg/5 500 mg feeding tube BID SUPPLEMENT 12/12/21 11/02/24 History mL oral syrup cholecalciferol (vitamin D3) 50 50 mcg feeding tube DA JANAK 12/12/21 11/02/24 History mcg (2,000 unit) capsule SUPPLEMENT ibuprofen 100 mg/5 mL oral 400 mg PO Q6H PRN Pain 04/0 10/0402/24/22 History suspension sodium chloride 0.9 % for 3 - 6 ml inhalation Q2H PRN 12/12/21 02/23/22 History nebulization Congestion levalbuterol HCl 1.25 mg/3 mL 1.25 mg (3 mL) inhalatio n BID 01/16/22 11/02/24 Rx solution for nebulization BREATHING #90 mL acetaminophen 160 mg/5 mL oral 640 mg PO Q4H PRN pain/ fever 03/31/22 Unknown History liquid acidophilus 25 million 1 tab G-tube DAILY supplemen t 03/31/22 11/02/24 History cell-pectin, citrus 100 mg tablet carbamide peroxide 6.5 % ear drops 5 drp EACH EAR ZACHERY Y PRN Ear Wax 03/31/22 Unknown History (Debrox) magnesium hydroxide 400 mg/5 mL 15 - 60 ml PO DAILY [place] N 03/31/22 Unknown History oral suspension (Milk of Magnesia) Constipation nystatin 100,000 unit/gram topical 1 applic topical BI D PRN redness 03/31/22 Unknown History powder ferrous sulfate 15 mg iron (75 5 ml feeding tube MOTH supplement 08/24/22 11/02/24 History mg)/mL oral syringe (ORAL USE) docusate sodium 60 mg/15 mL oral 60 mg feeding tube DA JANAK stool 08/29/22 Unknown History syrup softner nutritional supplements 1 ea PO BID Check with prima ry 08/29/22 Unknown History doctor blood sugar diagnostic (True #400 ea 02/23/23 Unknown Rx Metrix Pro Test Strip) cetirizine 5 mg/5 mL oral solution 10 mg (10 mL) PO DA JANAK allergy 03/18/23 11/02/24 Rx symptoms #300 mL fluticasone propionate 44 2 puff inhalation BID breath ing 05/23/24 11/02/24 Rx mcg/actuation HFA aerosol inhaler #10.6 grams (Flovent HFA) levalbuterol HCl 1.25 mg/3 mL 1.25 mg (3 mL) inhalatio n Q4H PRN 05/23/24 Unknown Rx solution for nebulization sob #150 mL insulin glargine 100 unit/mL (3 20 unit (0.2 mL) subcu t QPM sugar 10/24/24 11/01/24 Rx mL) subcutaneous pen (Basaglar #15 mL KwikPen U-100 Insulin) artificial tears(hypromellose) 0.3 1 drp EACH EYE BID PRN dry eyes 11/02/24 Unknown History % eye gel (GenTeal Tears Severe) bacitracin 500 unit/gram topical 1 applic topical 4X/D AY PRN 11/02/24 Unknown History ointment ABRASIONS guaifenesin 100 mg/5 mL oral liquid 200 mg G-tube Q4H PRN thick 11/02/24 Unknown History secretions honey 80 % topical gel ([place] 1 applic topical BID [place] N wound 11/02/24 Unknown History Honey) healing hydrocortisone 1 % topical cream 1 applic topical 4X/D AY PRN itching 11/02/24 Unknown History (Ala-Brown) methenamine hippurate 1 gram tablet 1 g PO BID infecti on 11/02/24 11/02/24 History ljozmwhv-skoa-gphiggf gluconate 9 5 ml PO DAILY supple ment 11/02/24 11/02/24 History mg iron/15 mL (15 mL) oral liquid (Centrum) potassium chloride 20 mEq/15 mL 10 meq PO DAILY supple ment 11/02/24 11/02/24 History oral liquid sodium chloride 0.9 % topical spray 1 applic topical P RN trach care 11/02/24 Unknown History trolamine salicylate 10 % topical 1 applic topical 4X/ DAY PRN muscle 11/02/24 Unknown History cream (Alcis) pain Novolog FlexPen U-100 Insulin 100 18 unit (0.18 mL) conklin bcut .qid 01/29/25 Unknown Rx unit/mL (3 mL) subcutaneous sugar 90 days #33 mL (insulin aspart U-100) pen needle, diabetic 32 gauge x #360 ea 01/29/25 Unkno wn Rx lancets 30 gauge (Embrace Lancets) #200 ea 02/21/25 Un known Rx blood sugar diagnostic (True #150 ea 04/03/25 Unknown Rx Metrix Glucose Test Strip) lancets 33 gauge (OneTouch Delica #200 ea 04/17/25 Unk nown Rx Plus Lancet) lancing device with lancets kit #1 ea 04/17/25 Unknown Rx (OneTouch Delica Plus Lancing Device kit) blood sugar diagnostic (OneTouch #450 ea 05/11/25 Unkn own Rx Ultra Test strips) blood-glucose meter (OneTouch #1 ea 05/11/25 Unknown R x Ultra2 Meter) OXYGEN - Supplemental ([facility] 05/21/25 Unknown History INFORMATIONAL USE ONLY) Allergy/AdvReac Type Severity Reaction Status Date / Time linezolid Allergy Severe Other - Verified 05/20/25 13:11 seizure & coma vancomycin Allergy Severe Other - Verified 05/20/25 13:11 kidney failure tobramycin Allergy Intermediate Other - Verified 05/20/25 13:11 turned beet red ertapenem Allergy Mild Hives Verified 05/20/25 13:11 nafcillin Allergy Mild Rash Verified 05/20/25 13:11 benzoin Allergy Unknown Rash Verified 05/20/25 13:11 milk Allergy Unknown Other Verified 05/20/25 13:11 soy Allergy Unknown Other Verified 05/20/25 13:11 polyethylene glycol 3350 AdvReac Unknown Hives Verified 05/20/25 13:11 (From Miralax) Family History Grandmother Cancer maternal Other Adopted Surgical History Presence of intrathecal baclofen pump Gastrostomy tube in place Status post Jorje fundoplication H/O spinal fusion rods to back surgery on gland under tongue eyes straightened derotatox ostomies tendonatomies Tracheostomy status Social History household members: other details: Mother and is vent dependent housing: house Smoking Status: Never smoker second hand exposure: No alcohol intake: never substance use type: does not use Physical Exam Const no apparent distress HEENT normocephalic and head/scalp atraumatic Eyes PERRL and EOMs intact bilaterally Neck supple and No nodes Resp normal air movement and clear to auscultation bilaterally Cardio regular rate and regular rhythm GI soft to palpation, non-tender and non-distended Extremity General Extremity: Negative for edema Skin no rashes or lesions noted Neuro Neuro Narrative: awake Lab / Micro Data Attestation: I reviewed the patient's lab results. 05/21/25 06:52 05/21/25 06:52 Labs: Laboratory Results - last 24 hr 05/20/25 14:15: WBC 9.1, RBC 3.73 L, Hgb 11.7 L, Hct 34.4 L, MCV 92.2, MCH 31.4, MCHC 34.0, RDW Std Deviation 41.2, RDW Coeff of Anne 12.3, Plt Count 361, MPV 10.2, Immature Gran % (Auto) 1.000 H, Neut % (Auto) 72.9 H, Lymph % (Auto) 15.1 L, Benson % (Auto) 8.6, Eos % (Auto) 2.0, Baso % (Auto) 0.4, Absolute Neuts (auto) 6.7, Absolute Lymphs (auto) 1.38, Nucleated RBC % 0, Sodium Cancelled, Potassium Cancelled, Chloride Cancelled, Carbon Dioxide Cancelled, Anion Gap Cancelled, BUN Cancelled, Creatinine Cancelled, Estim Creat Clear Calc Cancelled, Est GFR (MDRD) Non-Af Cancelled, BUN/Creatinine Ratio Cancelled, Glucose Cancelled, L actic Acid 2.2 H*, Calcium Cancelled, Total Bilirubin Cancelled, AST Cancelled, ALT Cancelled, Alkaline Phosphatase Cancelled, Total Protein Cancelled, Albumin Cancelled, Globulin Cancelled, Albumin/Globulin Ratio Cancelled, Lipase Cancelled 05/20/25 15:10: Urine Color Catherine, Urine Clarity Sl. Cloudy, Urine pH 8.0, Ur Specific [place] 1.015, Urine Protein 100 H, Urine Glucose (UA) Normal, Urine Ketones Negative, Urine Occult Blood 250 H, Urine Nitrite Positive H, Urine Bilirubin Negative, Urine Urobilinogen Normal, Ur Leukocyte Esterase 500 H, Urine RBC 25-50 SEEN, Urine WBC 25-50 SEEN, Ur Squamous Epith Cells 0-5 SEEN, Urine Bacteria 4+, Urine Mucus 0 SEEN 05/20/25 15:23: Sodium 137, Potassium 3.8, Chloride 103, Carbon Dioxide 22.4, Anion Gap 12, BUN 6, Creatinine 0.29 L, Estim Creat Clear Calc 194.49, Est GFR (MDRD) Non-Af 143, BUN/Creatinine Ratio 19.6, Glucose 144 H, Calcium 8.4, Total Bilirubin 0.15, AST 25, ALT 24, Alkaline Phosphatase 65, Total Protein 6.6, Albumin 3.7, Globulin 2.9, Albumin/Globulin Ratio 1.3, Lipase 33 05/20/25 15:32: POC Glucose 105 05/20/25 18:14: POC Glucose 237 H 05/20/25 18:51: Lactic Acid 2.6 H* 05/20/25 23:06: POC Glucose 83 05/21/25 05:53: POC Glucose 117 H 05/21/25 06:52: WBC 8.2, RBC 3.21 L, Hgb 10.3 L, Hct 29.6 L, MCV 92.2, MCH 32.1 H, MCHC 34.8, RDW Std Deviation 41.7, RDW Coeff of Anne 12.4, Plt Count 301, MPV 9.7, Immature Gran % (Auto) 0.500, Neut % (Auto) 72.1 H, Lymph % (Auto) 15.2 L, Benson % (Auto) 8.6, Eos % (Auto) 3.4, Baso % (Auto) 0.2, Absolute Neuts (auto) 5.9, Absolute Lymphs (auto) 1.25, Nucleated RBC % 0, Sodium 138, Potassium 4.1, Chloride 104, Carbon Dioxide 23.2, Anion Gap 11, BUN 8, Creatinine 0.25 L, Estim Creat Clear Calc 225.60, Est GFR (MDRD) Non-Af 148, BUN/Creatinine Ratio 32.5 H, Glucose 110 H, Calcium 9.2 Micro: Microbiology 05/20/25 15:10 Urine Catheter - Owens Urine Culture - Preliminary GNR lactose staff radiographer Imaging Radiology Impression Chest/Abdomen/Pelvis CT 05/20/25 13:52 IMPRESSION: There is no hydronephrosis. Bilateral renal calculi noted. Multiple calculi seen within the urinary bladder. Genitourinary findings discussed above in detail. - Fluid, air-fluid levels and semi solid fecal material within the colon and rectum. This is abnormal to be correlated with symptoms and causes of diarrhea. Other nonspecific gastrointestinal findings as discussed above. There is no free air, free fluid or focal mesenteric inflammation. - Multiple other findings and study limitations discussed above. Reading Location: [id number]
--- NOTE | 2025-05-21 11:07 | NURSING ---
Hiprex medication given, needed crushed forgot to scan and threw away, documented manually on MAR
[2025-05-21] MEDS: DIAZEPAM 5 MG/5 ML GT (14:26)
--- NOTE | 2025-05-21 16:30 | CASEMGMT ---
Addendum entered by Carline Mcghee 05/21/25 16:58: Message sent to [facility] as well as [facility] to resume care via [employer] at this time. Original Note: HIREN WILSON Readmission Note Previous Admission: 04/30/25-05/02/25 Diagnosis: multifocal pna, choldocholithiasis and UTI DC Disposition: Home with IV atb and [facility] nursing services Current Admission: Admitted 05/20/25 Current Diagnosis: UTI Pt dc'd from last admission with IV atb. HIREN WILSON into pt room, pt mother at bedside. Pt nonverbal. Pt mother states that pt received one day of IV atb and then got hives and the IV was dc'd. Mother states all is going ok at home. She states a nurse straight caths pt in the AM and mother caths in the PM for BID straight caths. Pt is active with [facility] M//Wed 8am-6pm and / 9:15am-4pm. She would like these services to continue and denies need for a list of other options to chose from. Pt receives ventilator support through [facility]. Pt mother states the tube feedings are going ok but she is starting to run out of food. She states she has been trying for 5mos to obtain a supplier but has been unsuccessful. Pt is allergic to milk and soy and uses [employer]. She states the company [employer] has been bridging cans for them. Pt mother states she has tried [facility] and they will not accept pt. She is not sure if [facility] has been tried. HIREN WILSON will attempt to send a message via [employer] for [facility] to see if they can supply per mother's request. Mother also states that pt is in need of a new hospital bed but does not know where to go to get this. Informed her that typically she would start with PCP office for this. Will see if hospitalist is interested in ordering but she is aware that she may need to follow up with PCP for this. Otherwise, mother denies any further needs at home. She requests [facility] to transport pt home. ID to c/s as well as uro. HIREN WILSON to follow. DC Plan: Home with [facility] services to continue. [facility] to transport home.
[2025-05-21] MEDS: Acetaminophen 650 MG/20 ML UDC GT (21:07)
[2025-05-21] MEDS: Insulin Glargine-YFGN 100 UNIT/ML Pen 15 UNIT SC (21:08)
[2025-05-22 00:24] VITALS: BP 109/72; PULSE 52; RESP 18; TEMP 36.5; O2SAT 100
[2025-05-22 05:12] LABS: Hematocrit 32.1 % (37-47); Hemoglobin 10.4 g/dL (12.0-15.0); Immature Granulocytes Count 0.070 X10^3/uL (0.0-0.0); Mean Corp Hgb Conc 32.4 g/dL (32-36); Mean Corpuscular Volume 95.5 fL (81-99); Mean Platelet Vol. 10.7 fl (6.2-12.0); NRBC Flagged by Analyzer 0 % (0-5); Platelet Count 332 K/mm3 (150-450); RBC Distribution Width CV 12.8 % (11.6-14.6); RBC Distribution Width SD 44.6 fl (35.1-43.9); Red Blood Count 3.36 M/mm3 (4.2-5.4); White Blood Count 7.1 K/mm3 (4.4-11.0)
[2025-05-22 05:34] LABS: Anion Gap 12 (5-15); BUN 9 mg/dL (4-19); BUN/Creat Ratio 28.3 RATIO (10-20); Calcium,Total 9.4 mg/dL (7.6-11.0); Carbon Dioxide 23.1 mmol/L (21.0-32.0); Chloride 106 mmol/L (98-108); Estimated Creatinine Clearance 170.91 ml/min (50-250); Glucose 118 mg/dL (70-99); Potassium 4.3 mmol/L (3.3-5.1)
[2025-05-22] MEDS: Meropenem 1 GM in 0.9% Normal Saline (100mL MB+) 100 ML IV ×2 (06:32→14:13)
[2025-05-22 06:35] VITALS: BP 120/68; PULSE 56; RESP 18; TEMP 36.9; O2SAT 100
[2025-05-22] MEDS: Albuterol 2.5 MG/3 ML VIAL.NEB. INHALATION (07:02)
[2025-05-22] MEDS: Budesonide Respules 0.5 MG/2 ML AMPUL.NEB. INHALATION (07:02)
[2025-05-22 07:06] VITALS: PULSE 65; RESP 16; O2SAT 98
--- NOTE | 2025-05-22 07:51 | PN.HOSP_ITS ---
Reason for Visit Chief Complaint: Hematuria Subjective Subjective No new events. Discussed with her father. Objective Data Objective Data Vital Signs: Vital Signs Temp Pulse Resp BP Pulse Ox O2 Del Method O2 Flow Rate 36.9 C 65 16 120/68 98 Mechanical Ventilator 3 05/22/25 06:35 05/22/25 07:06 05/22/25 07:06 05/22/25 06:35 05/22/25 07:06 05/22/25 07:06 05/22/25 07:06 Oxygen Flow Rate (L/min) 3 Oxygen Delivery Method Mechanical Ventilator Weight: 47.7 kg Body Mass Index (BMI) 24.4 Intake & Output: Intake and Output for Last 24 Hours 05/20/25 05/21/25 05/22/25 23:59 23:59 23:59 Intake Total 640 / 640 1300 / 1300 100 / 100 Output Total 600 / 600 975 / 975 450 / 450 Balance 40 / 40 325 / 325 -350 / -350 Lab / Micro Data 05/22/25 04:12 05/22/25 04:12 Labs: Laboratory Results - last 24 hr 05/20/25 15:10: Urine Color Catherine, Urine Clarity Sl. Cloudy, Urine pH 8.0, Ur Specific [place] 1.015, Urine Protein 100 H, Urine Glucose (UA) Normal, Urine Ketones Negative, Urine Occult Blood 250 H, Urine Nitrite Positive H, Urine Bilirubin Negative, Urine Urobilinogen Normal, Ur Leukocyte Esterase 500 H, Urine RBC 25-50 SEEN, Urine WBC 25-50 SEEN, Ur Squamous Epith Cells 0-5 SEEN, Urine Bacteria 4+, Urine Mucus 0 SEEN 05/21/25 11:25: POC Glucose 149 H 05/21/25 18:03: POC Glucose 229 H 05/21/25 20:50: POC Glucose 120 H 05/22/25 00:21: POC Glucose 101 05/22/25 04:12: WBC 7.1, RBC 3.36 L, Hgb 10.4 L, Hct 32.1 L, MCV 95.5, MCH 31.0, MCHC 32.4 D, RDW Std Deviation 44.6 H, RDW Coeff of Anne 12.8, Plt Count 332, MPV 10.7, Immature Gran % (Auto) 1.000 H, Neut % (Auto) 55.6, Lymph % (Auto) 30.3, [place] % (Auto) 8.3, Eos % (Auto) 4.4, Baso % (Auto) 0.4, Absolute Neuts (auto) 3.9, Absolute Lymphs (auto) 2.15, Nucleated RBC % 0, Sodium 141, Potassium 4.3, Chloride 106, Carbon Dioxide 23.1, Anion Gap 12, BUN 9, C reatinine 0.33 L, Estim Creat Clear Calc 170.91, Est GFR (MDRD) Non-Af 138, B UN/Creatinine Ratio 28.3 H, Glucose 118 H, Calcium 9.4 05/22/25 06:30: POC Glucose 126 H Micro: Microbiology 05/20/25 15:10 Urine Catheter - Saba Urine Culture - Preliminary GNR lactose central processing tech Physical Exam Const alert and no apparent distress HEENT head/scalp atraumatic and moist oral mucous membranes Neuro Sensorium / Orientation: awake and alert Assessment & Plan Assessment/Plan (1) UTI (urinary tract infection): PLAN: Plan Recurrent urinary tract infection * Patient with history of ESBL UTI. Culture currently growing out GNR. * Patient had tolerated ertapenem while hospitalized last time and only reacted when she was switched to ertapenem, feel benefits outweigh risks of trialing Merrem without given concomitant Benadryl and steroids, if patient has a reaction can give these will trial and Merrem at this time * ID and consulted. From , no plans for surgical intervention at this time. * pt straight cathed at home, currently has saba catheter here. This will be discontinued upon discharge. * ID recommending 6 more days of IV meropenem. Midline ordered. Diarrhea * Diarrhea not necessarily uncommon for patient however it has been more liquid daily and more frequent over the past couple of weeks, CT did show fluid and semisolid fecal material which could correlate with the diarrhea * Given recent antibiotic use and history of C. difficile will check C. difficile and enteric panel (still pending collection) Chronic conditions: * Kidney stones: Small stones seen on CT scan without any hydronephrosis or active obstruction. Consider evaluation if concern for infected nidus from the stones. * Type 2 diabetes mellitus-Glucose checks and sliding scale insulin * Cerebral palsy, chronic tracheostomy, PEG tube-Supportive care, continue home tube feeds and ventilation-Continue home baclofen and diazepam * Seizure disorder-Presently maintained on Trileptal-Continue home regimen * Chronic hypoxic respiratory failure-Continue inhalers-Continue home ventilation * protein calorie malnutrition: family managing her tube feeds. I advised her mother, that the hospital can manage them, but declined that for now. DVT ppx: SCDs Charges/Coding Visit Charges Inpatient E&M: 25885 Subs Hosp L1
[2025-05-22] MEDS: Potassium Chloride Oral Soln 20 MEQ/15 ML UDC 10 MEQ PO (09:01)
[2025-05-22] MEDS: OXCARBAZEPINE 300 MG/5 ML 8 MG GT (09:02)
[2025-05-22] MEDS: DIAZEPAM 5 MG/5 ML 7 MG GT (09:03)
[2025-05-22] MEDS: 0.9% Saline Lock 10 ML Syringe IV ×3 (09:08→17:09)
--- NOTE | 2025-05-22 09:13 | CON.PCM_ITS ---
Assessment & Plan Assessment/Plan (1) History of ESBL E. coli infection: (2) Renal calculi: PLAN: Plan From a urologic standpoint, there is no perinephric stranding, hydronephrosis and she has significantly less stone burden than previous Her hematuria has cleared My honest opinion is that she will continue to quickly develop stones and struggle with resistant infections of the urine From a clinical standpoint I do not at this time see the benefit of surgical intervention Continue antibiotics per infectious disease HPI Consult Data Date of Consult: 05/22/25 HPI Narrative Reason for Consultation: nephrolithiasis, UTI, hematuria HPI Narrative: MANDY RIVERA, is a 35 F who is MRCP ventilator dependant on intermittent straight cath at home with multiple kidney stones and ESBL urinary tract infection with hematuria. The hematuria has resolved, she has an indwelling Owens catheter at this time. She is at her baseline today. [facility] Medical History (Updated 05/22/25 @ 12:[address] Samaria Anaya MD) Renal calculi Multifocal pneumonia Ileus High serum vitamin B12 ESBL (extended spectrum beta-lactamase) producing bacteria infection On tube feeding diet History of Clostridium difficile infection MRSA infection Redness of skin Bladder disease History of renal disease Seizures Dietary restriction On home oxygen therapy Non-smoker Skin tag of vaginal mucosa Renal calculus or stone PICC (peripherally inserted central catheter) in place Bedbound Pancreatitis Kidney stones Ventilator dependent Urinary tract infection due to extended-spectrum beta lactamase (ESBL) producing Escherichia coli Recurrent UTI Staghorn renal calculus Chronic respiratory failure Allergic rhinitis due to other allergen Paraplegia Visual disturbance Amenorrhea Neuromuscular scoliosis Hyperglycemia Vitamin D deficiency Respiratory acidosis Thrush Lactic acid acidosis Bronchitis Irregular menstrual cycle 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 Bronchiectasis without acute exacerbation Severe sepsis Seizure Cerebral palsy Pneumonia Home Medications ?Medication ?Instructions ?Recorded ?Last Taken ?Type baclofen 20 mg tablet 30 mg G-tube TID muscle spas ms 09/02/13 11/02/24 20:30 History oxcarbazepine 300 mg/5 mL (60 8 ml G-tube BID seizure 08/28/17 11/02/24 20:30 History mg/mL) oral suspension (Trileptal) diazepam 5 mg/5 mL (1 mg/mL) oral 5 mg feeding tube DA JANAK@1400 spasms 05/20/21 11/02/24 14:00 History solution diazepam 5 mg/5 mL (1 mg/mL) oral 7 mg feeding tube BI D spasms 05/20/21 11/02/24 20:30 History solution ascorbic acid (vitamin C) 500 mg/5 500 mg feeding tube BID SUPPLEMENT 12/12/21 11/02/24 History mL oral syrup cholecalciferol (vitamin D3) 50 50 mcg feeding tube DA JANAK 12/12/21 11/02/24 History mcg (2,000 unit) capsule SUPPLEMENT ibuprofen 100 mg/5 mL oral 400 mg PO Q6H PRN Pain 04/0 10/0402/24/22 History suspension sodium chloride 0.9 % for 3 - 6 ml inhalation Q2H PRN 12/12/21 02/23/22 History nebulization Congestion levalbuterol HCl 1.25 mg/3 mL 1.25 mg (3 mL) inhalatio n BID 01/16/22 11/02/24 Rx solution for nebulization BREATHING #90 mL acetaminophen 160 mg/5 mL oral 640 mg PO Q4H PRN pain/ fever 03/31/22 Unknown History liquid acidophilus 25 million 1 tab G-tube DAILY supplemen t 03/31/22 11/02/24 History cell-pectin, citrus 100 mg tablet carbamide peroxide 6.5 % ear drops 5 drp EACH EAR ZACHERY Y PRN Ear Wax 03/31/22 Unknown History (Debrox) magnesium hydroxide 400 mg/5 mL 15 - 60 ml PO DAILY CA N 03/31/22 Unknown History oral suspension (Milk of Magnesia) Constipation nystatin 100,000 unit/gram topical 1 applic topical BI D PRN redness 03/31/22 Unknown History powder ferrous sulfate 15 mg iron (75 5 ml feeding tube MOTH supplement 08/24/22 11/02/24 History mg)/mL oral syringe (ORAL USE) docusate sodium 60 mg/15 mL oral 60 mg feeding tube DA JANAK stool 08/29/22 Unknown History syrup softner nutritional supplements 1 ea PO BID Check with prima ry 08/29/22 Unknown History doctor blood sugar diagnostic (True #400 ea 02/23/23 Unknown Rx Metrix Pro Test Strip) cetirizine 5 mg/5 mL oral solution 10 mg (10 mL) PO DA JANAK allergy 03/18/23 11/02/24 Rx symptoms #300 mL fluticasone propionate 44 2 puff inhalation BID breath ing 05/23/24 11/02/24 Rx mcg/actuation HFA aerosol inhaler #10.6 grams (Flovent HFA) levalbuterol HCl 1.25 mg/3 mL 1.25 mg (3 mL) inhalatio n Q4H PRN 05/23/24 Unknown Rx solution for nebulization sob #150 mL insulin glargine 100 unit/mL (3 20 unit (0.2 mL) subcu t QPM sugar 10/24/24 11/01/24 Rx mL) subcutaneous pen (Basaglar #15 mL KwikPen U-100 Insulin) artificial tears(hypromellose) 0.3 1 drp EACH EYE BID PRN dry eyes 11/02/24 Unknown History % eye gel (GenTeal Tears Severe) bacitracin 500 unit/gram topical 1 applic topical 4X/D AY PRN 11/02/24 Unknown History ointment ABRASIONS guaifenesin 100 mg/5 mL oral liquid 200 mg G-tube Q4H PRN thick 11/02/24 Unknown History secretions honey 80 % topical gel ([place] 1 applic topical BID CA N wound 11/02/24 Unknown History Honey) healing hydrocortisone 1 % topical cream 1 applic topical 4X/D AY PRN itching 11/02/24 Unknown History (Ala-Brown) methenamine hippurate 1 gram tablet 1 g PO BID infecti on 11/02/24 11/02/24 History mnamgovz-ymbv-hmnvwac gluconate 9 5 ml PO DAILY supple ment 11/02/24 11/02/24 History mg iron/15 mL (15 mL) oral liquid (Centrum) potassium chloride 20 mEq/15 mL 10 meq PO DAILY supple ment 11/02/24 11/02/24 History oral liquid sodium chloride 0.9 % topical spray 1 applic topical P RN trach care 11/02/24 Unknown History trolamine salicylate 10 % topical 1 applic topical 4X/ DAY PRN muscle 11/02/24 Unknown History cream (Alcis) pain Novolog FlexPen U-100 Insulin 100 18 unit (0.18 mL) conklin bcut .qid 01/29/25 Unknown Rx unit/mL (3 mL) subcutaneous sugar 90 days #33 mL (insulin aspart U-100) pen needle, diabetic 32 gauge x #360 ea 01/29/25 Unkno wn Rx lancets 30 gauge (Embrace Lancets) #200 ea 02/21/25 Un known Rx blood sugar diagnostic (True #150 ea 04/03/25 Unknown Rx Metrix Glucose Test Strip) lancets 33 gauge (OneTouch Delica #200 ea 04/17/25 Unk nown Rx Plus Lancet) lancing device with lancets kit #1 ea 04/17/25 Unknown Rx (OneTouch Delica Plus Lancing Device kit) blood sugar diagnostic (OneTouch #450 ea 05/11/25 Unkn own Rx Ultra Test strips) blood-glucose meter (OneTouch #1 ea 05/11/25 Unknown R x Ultra2 Meter) OXYGEN - Supplemental ([facility] 05/21/25 Unknown History INFORMATIONAL USE ONLY) meropenem 1 gram intravenous 1 g IV Q8 6 days #17 ea 0 05/22/25 Unknown Rx solution Allergy/AdvReac Type Severity Reaction Status Date / Time linezolid Allergy Severe Other - Verified 05/20/25 13:11 seizure & coma vancomycin Allergy Severe Other - Verified 05/20/25 13:11 kidney failure tobramycin Allergy Intermediate Other - Verified 05/20/25 13:11 turned beet red ertapenem Allergy Mild Hives Verified 05/20/25 13:11 nafcillin Allergy Mild Rash Verified 05/20/25 13:11 benzoin Allergy Unknown Rash Verified 05/20/25 13:11 milk Allergy Unknown Other Verified 05/20/25 13:11 soy Allergy Unknown Other Verified 05/20/25 13:11 polyethylene glycol 3350 AdvReac Unknown Hives Verified 05/20/25 13:11 (From Miralax) Family History Grandmother Cancer maternal Other Adopted Surgical History Presence of intrathecal baclofen pump Gastrostomy tube in place Status post Jorje fundoplication H/O spinal fusion rods to back surgery on gland under tongue eyes straightened derotatox ostomies tendonatomies Tracheostomy status Social History household members: other details: Mother and is vent dependent housing: house Smoking Status: Never smoker second hand exposure: No alcohol intake: never substance use type: does not use ROS Review of Systems ROS Unobtainable: due to endotracheal tube and due to mental status Physical Exam Narrative Feeling better, urine clear, no fever Const alert General Appearance: well kempt HEENT head/scalp atraumatic Neck Neck Narrative: rigid, turned to the left General: tracheostomy present Resp normal air movement and clear to auscultation bilaterally Cardio regular rate and regular rhythm GI soft to palpation, non-tender and non-distended Narrative: Indwelling urethral Owens catheter with cloudy yellow urine Skin no rashes or lesions noted Lab / Micro Data 05/22/25 04:12 05/22/25 04:12 Labs: Laboratory Results - last 24 hr 05/20/25 15:10: Urine Color Catherine, Urine Clarity Sl. Cloudy, Urine pH 8.0, Ur Specific [place] 1.015, Urine Protein 100 H, Urine Glucose (UA) Normal, Urine Ketones Negative, Urine Occult Blood 250 H, Urine Nitrite Positive H, Urine Bilirubin Negative, Urine Urobilinogen Normal, Ur Leukocyte Esterase 500 H, Urine RBC 25-50 SEEN, Urine WBC 25-50 SEEN, Ur Squamous Epith Cells 0-5 SEEN, Urine Bacteria 4+, Urine Mucus 0 SEEN 05/21/25 11:25: POC Glucose 149 H 05/21/25 18:03: POC Glucose 229 H 05/21/25 20:50: POC Glucose 120 H 05/22/25 00:21: POC Glucose 101 05/22/25 04:12: WBC 7.1, RBC 3.36 L, Hgb 10.4 L, Hct 32.1 L, MCV 95.5, MCH 31.0, MCHC 32.4 D, RDW Std Deviation 44.6 H, RDW Coeff of Anne 12.8, Plt Count 332, MPV 10.7, Immature Gran % (Auto) 1.000 H, Neut % (Auto) 55.6, Lymph % (Auto) 30.3, [place] % (Auto) 8.3, Eos % (Auto) 4.4, Baso % (Auto) 0.4, Absolute Neuts (auto) 3.9, Absolute Lymphs (auto) 2.15, Nucleated RBC % 0, Sodium 141, Potassium 4.3, Chloride 106, Carbon Dioxide 23.1, Anion Gap 12, BUN 9, C reatinine 0.33 L, Estim Creat Clear Calc 170.91, Est GFR (MDRD) Non-Af 138, B UN/Creatinine Ratio 28.3 H, Glucose 118 H, Calcium 9.4 05/22/25 06:30: POC Glucose 126 H Micro: Microbiology 05/20/25 15:10 Urine Catheter - Owens Urine Culture - Preliminary GNR lactose nitroglycerin distributor Charges/Coding Multi Select Codes Urology Urology Charge Forwarding-multi code: Attention [place]
--- NOTE | 2025-05-22 10:28 | PN.ID_ITS ---
Physical Exam Narrative Feeling better, urine clear, no fever Const alert and no apparent distress Resp normal air movement and clear to auscultation bilaterally Cardio regular rate and regular rhythm GI soft to palpation, non-tender and non-distended Skin no rashes or lesions noted ID ID: Route of nutrition/ use of supplements: [] Nutritional Intake: [] IV Site: [] Owens Catheter: [] Assessment & Plan Assessment/Plan (1) Diarrhea: QUALIFIERS: Diarrhea type: presumed infectious Qualified Code(s): R19.7 - Diarrhea, unspecified (2) History of ESBL E. coli infection: (3) History of cerebral palsy: (4) Ventilator dependence: (5) UTI (urinary tract infection): PLAN: Ucx with GNR. Seen by Dr. Anaya. Diarrhea resolved. Will order midline and 6 more days meropenem. Will follow, d/w classification case manager (6) Chronic respiratory failure: QUALIFIERS: Respiratory failure complication: hypoxia Qualified Code(s): J96.11 - Chronic respiratory failure with hypoxia
[2025-05-22 10:30] VITALS: BP 114/70; PULSE 68; RESP 18; TEMP 36.9; O2SAT 100
--- NOTE | 2025-05-22 11:26 | CASEMGMT ---
Addendum entered by Carline Mcghee 05/22/25 15:45: TC to [facility], spoke with nurse Karlee, she is aware pt is dc'ing [facility]. Referral sent with dc summary via [facility] at this time. Addendum entered by Carline Mcghee 05/22/25 15:42: TC to [facility] and set up transport for home with home ventilator. HIREN WILSON into pt room, pt father will ride in ambulance and manage ventilator. Plan for pickup at 8pm. Nurse and pt father aware. Pt father asks if he can come back after pt is settled at home to get rest of equipment in room. Discussed this with charge nurse who agreed and stated this was fine. Father aware. Addendum entered by Carline Mcghee 05/22/25 15:07: Pt to dc this date. DC summary and midline report sent to [facility] at this time. Addendum entered by Carline Mcghee 05/22/25 14:52: [place] [facility] [place] approx 15-24 in. TC to pt mother, she is aware of this and states that her current bed is higher. She declines to move forward with bed order. She is also aware that the for the bed to adjust in height it is a crank. She is not interested in this. Original Note: Received confirmation from [employer] that they can service pt for TF. Pt will have OOP of $9350 and $2199.70 has been met. Pt will be responsible for 20% until OOP met. HIREN WILSON into pt room, pt father present with pt. He asks HIREN WILSON to call his to discuss TF and hospital bed as well as IV atb. TC to pt mother, Rina, she is made aware of TF from [facility]. She states that at this time it is good to know they are an option but she will continue getting the feedings from the company. She declined this. Made her aware hospitalist is willing to order the hospital bed. She asks to know the height that the bed will go to prior to ordering. Provided her with a verbal list of local in network providers, she chose [facility]. Mother also aware that pt will need IV atb at dc. Meropenem. She states that she administers the IV atb on her own and has done this multiple times before with this med. She states she feels comfortable with it and denies any issues. She chose [facility] and denies need for a list of other options as she has used them in the past. Referral [facility]. [place] [facility] [place] that the hospital bed can go to.
[2025-05-22] MEDS: DIAZEPAM 5 MG/5 ML GT (14:18)
--- NOTE | 2025-05-22 14:56 | DS.PCM_ITS ---
Providers Date of Admission: 05/20/25 Primary Care Physician: Dr. Sandra Bermudez, Consultations 05/20/25 19:43 Consult: Infectious Disease Routine Consulting Provider: Rafa Bettencourt Reason for Consult: recurrent ESBL UTIs, UA suggestive of UTI EMERGENT Consult: No Notified: Yes Date Notified: 05/20/25 Time Notified: 18:15 Method of Notification: Text 05/21/25 10:18 Consult: Urology Routine Consulting Provider: Samaria Anaya Reason for Consult: stones with hematuria EMERGENT Consult: No Notified: Yes Date Notified: 05/21/25 Time Notified: 10:51 Method of Notification: Text Reason For Visit: URINARY TRACT INFECTION Diagnosis Discharge Diagnosis (1) UTI (urinary tract infection): Status: Acute Code(s): N39.0 - Urinary tract infection, site not specified Plan Recurrent urinary tract infection * Patient with history of ESBL UTI. Culture currently growing out GNR. * Patient had tolerated ertapenem while hospitalized last time and only reacted when she was switched to ertapenem, feel benefits outweigh risks of trialing Merrem without given concomitant Benadryl and steroids, if patient has a reaction can give these will trial and Merrem at this time * ID and consulted. From , no plans for surgical intervention at this time. * pt straight cathed at home, currently has saba catheter here. This will be discontinued upon discharge. * ID recommending 6 more days of IV meropenem. Midline placed. Diarrhea * Diarrhea not necessarily uncommon for patient however it has been more liquid daily and more frequent over the past couple of weeks, CT did show fluid and semisolid fecal material which could correlate with the diarrhea * Given recent antibiotic use and history of C. difficile will check C. difficile and enteric panel (still pending collection) Chronic conditions: * Kidney stones: Small stones seen on CT scan without any hydronephrosis or active obstruction. Consider evaluation if concern for infected nidus from the stones. * Type 2 diabetes mellitus-Glucose checks and sliding scale insulin * Cerebral palsy, chronic tracheostomy, PEG tube-Supportive care, continue home tube feeds and ventilation-Continue home baclofen and diazepam * Seizure disorder-Presently maintained on Trileptal-Continue home regimen * Chronic hypoxic respiratory failure-Continue inhalers-Continue home ventilation * protein calorie malnutrition: family managing her tube feeds. I advised her mother, that the hospital can manage them, but declined that for now. DC today. Medications at Discharge Home Medications baclofen 20 mg tablet 30 mg G-tube TID muscle spasms 09/02/13 oxcarbazepine 300 mg/5 mL (60 mg/mL) oral suspension (Trileptal) 8 ml G-tube BID seizure 08/28/17 diazepam 5 mg/5 mL (1 mg/mL) oral solution 5 mg feeding tube DAILY@1400 spasms 05/20/21 diazepam 5 mg/5 mL (1 mg/mL) oral solution 7 mg feeding tube BID spasms 05/20/21 ascorbic acid (vitamin C) 500 mg/5 mL oral syrup 500 mg feeding tube BID SUPPLEMENT 12/12/21 cholecalciferol (vitamin D3) 50 mcg (2,000 unit) capsule 50 mcg feeding tube DAILY SUPPLEMENT 12/12/21 ibuprofen 100 mg/5 mL oral suspension 400 mg PO Q6H PRN Pain 12/12/21 sodium chloride 0.9 % for nebulization 3 - 6 ml inhalation Q2H PRN Congestion 12/12/21 levalbuterol HCl 1.25 mg/3 mL solution for nebulization 1.25 mg (3 mL) inhalation BID BREATHING #90 mL 01/16/22 acetaminophen 160 mg/5 mL oral liquid 640 mg PO Q4H PRN pain/fever 03/31/22 acidophilus 25 million cell-pectin, citrus 100 mg tablet 1 tab G-tube DAILY supplement 03/31/22 carbamide peroxide 6.5 % ear drops (Debrox) 5 drp EACH EAR DAILY PRN Ear Wax 03/31/22 magnesium hydroxide 400 mg/5 mL oral suspension (Milk of Magnesia) 15 - 60 ml PO DAILY PRN Constipation 03/31/22 nystatin 100,000 unit/gram topical powder 1 applic topical BID PRN redness 03/31/22 ferrous sulfate 15 mg iron (75 mg)/mL oral syringe (ORAL USE) 5 ml feeding tube MOTH supplement 08/24/22 docusate sodium 60 mg/15 mL oral syrup 60 mg feeding tube DAILY stool softner 08/29/22 nutritional supplements 1 ea PO BID Check with primary doctor 08/29/22 blood sugar diagnostic (True Metrix Pro Test Strip) #400 ea 02/23/23 cetirizine 5 mg/5 mL oral solution 10 mg (10 mL) PO DAILY allergy symptoms #300 mL 03/18/23 fluticasone propionate 44 mcg/actuation HFA aerosol inhaler (Flovent HFA) 2 puff inhalation BID breathing #10.6 grams 05/23/24 levalbuterol HCl 1.25 mg/3 mL solution for nebulization 1.25 mg (3 mL) inhalation Q4H PRN sob #150 mL 05/23/24 insulin glargine 100 unit/mL (3 mL) subcutaneous pen (Basaglar KwikPen U-100 Insulin) 20 unit (0.2 mL) subcut QPM sugar #15 mL 10/24/24 artificial tears(hypromellose) 0.3 % eye gel (GenTeal Tears Severe) 1 drp EACH EYE BID PRN dry eyes 11/02/24 bacitracin 500 unit/gram topical ointment 1 applic topical 4X/DAY PRN ABRASIONS 11/02/24 guaifenesin 100 mg/5 mL oral liquid 200 mg G-tube Q4H PRN thick secretions 11/02/24 honey 80 % topical gel (Manuka Honey) 1 applic topical BID PRN wound healing 11/02/24 hydrocortisone 1 % topical cream (Ala-Brown) 1 applic topical 4X/DAY PRN itching 11/02/24 methenamine hippurate 1 gram tablet 1 g PO BID infection 11/02/24 Held on 05/22/25. Instructions: Resume on 05/28/25. [id number] gluconate 9 mg iron/15 mL (15 mL) oral liquid (Centrum) 5 ml PO DAILY supplement 11/02/24 potassium chloride 20 mEq/15 mL oral liquid 10 meq PO DAILY supplement 11/02/24 sodium chloride 0.9 % topical spray 1 applic topical PRN trach care 11/02/24 trolamine salicylate 10 % topical cream (Alcis) 1 applic topical 4X/DAY PRN muscle pain 11/02/24 Novolog FlexPen U-100 Insulin 100 unit/mL (3 mL) subcutaneous (insulin aspart U- 100) 18 unit (0.18 mL) subcut .qid sugar 90 days #33 mL 01/29/25 pen needle, diabetic 32 gauge x 5/32 #360 ea 01/29/25 lancets 30 gauge (Embrace Lancets) #200 ea 02/21/25 blood sugar diagnostic (True Metrix Glucose Test Strip) #150 04/03/25 lancets 33 gauge (OneTouch Delica Plus Lancet) #200 ea 04/17/25 lancing device with lancets kit (OneTouch Delica Plus Lancing Device kit) #1 ea 04/17/25 blood sugar diagnostic (OneTouch Ultra Test strips) #450 ea 05/11/25 blood-glucose meter (OneTouch Ultra2 Meter) #1 05/11/25 OXYGEN - Supplemental ([facility] INFORMATIONAL USE ONLY) 05/21/25 meropenem 1 gram intravenous solution 1 g IV Q8 6 days #17 ea 05/22/25 Hospital Course Operations None Procedures - (midline) Weight / BMI Weight Weight: 47.7 kg Body Mass Index (BMI) 24.4 ABG / Lab / Microbiology Data 05/22/25 04:12 05/22/25 04:12 Laboratory: Laboratory Results - last 24 hr 05/21/25 18:03: POC Glucose 229 H 05/21/25 20:50: POC Glucose 120 H 05/22/25 00:21: POC Glucose 101 05/22/25 04:12: WBC 7.1, RBC 3.36 L, Hgb 10.4 L, Hct 32.1 L, MCV 95.5, MCH 31.0, MCHC 32.4 D, RDW Std Deviation 44.6 H, RDW Coeff of Anne 12.8, Plt Count 332, MPV 10.7, Immature Gran % (Auto) 1.000 H, Neut % (Auto) 55.6, Lymph % (Auto) 30.3, [place] % (Auto) 8.3, Eos % (Auto) 4.4, Baso % (Auto) 0.4, Absolute Neuts (auto) 3.9, Absolute Lymphs (auto) 2.15, Nucleated RBC % 0, Sodium 141, Potassium 4.3, Chloride 106, Carbon Dioxide 23.1, Anion Gap 12, BUN 9, C reatinine 0.33 L, Estim Creat Clear Calc 170.91, Est GFR (MDRD) Non-Af 138, B UN/Creatinine Ratio 28.3 H, Glucose 118 H, Calcium 9.4 05/22/25 06:30: POC Glucose 126 H 05/22/25 10:24: POC Glucose 166 H Microbiology: Microbiology 05/20/25 15:10 Urine Catheter - Saba Urine Culture - Preliminary GNR lactose developer advocate D/C Instructions DC O2, CPAP, BIPAP Needs Home O2 Discharge instructions: Yes Type of respiratory needs?: Oxygen Oxygen frequency: Continuous Continuous oxygen liters per minute: 3 DC home with Oxygen: Yes Home O2 MD Review: I have reviewed the oxygen testing, and the patient qualifies for home oxygen equipment and portability. The patient is mobile in the home and the community. Meaningful Use Info Meaningful Use Meaningful Use Diagnoses (Choose all that apply): None applicable Discharge Plan Admission Admit Date/Time: 05/20/25 17:54 Primary Reason for Your Visit: urinary tract infection. Attending Provider: Prosper Gomez Primary Care Provider: Sandra Bermudez Consulting Providers: Shanice Ray; Rafa Bettencourt; Samaria Anaya Discharge Orders/Prescriptions Prescriptions: New meropenem 1 gram Recon Soln 1 g IV Q8 6 Days Qty: 17 0RF Rx Instructions: Dx: esbl infection. Stop date 05/28/25. Continued oxcarbazepine [Trileptal] 300 mg/5 mL (60 mg/mL) suspension 8 ml GT BID insulin glargine [Basaglar KwikPen U-100 Insulin] 100 unit/mL (3 mL) insulin pen 20 unit subcut QPM Qty: 15 2RF baclofen 20 MG tablet 30 mg GT TID Patient Comments: pain ferrous sulfate 15 mg iron (75 mg)/mL syringe 5 ml feeding tube MOTH Rx Instructions: TWICE WEEKLY ON WEDNESDAY AND WEDNESDAY diazepam 5 mg/5 mL (1 mg/mL) Solution 7 mg feeding tube BID diazepam 5 mg/5 mL (1 mg/mL) Solution 5 mg feeding tube DAILY@1400 ibuprofen 100 mg/5 mL Suspension 400 mg PO Q6H PRN (Reason: Pain) sodium chloride 0.9 % Solution For Nebulization 3 - 6 ml INHALATION Q2H PRN (Reason: Congestion) ascorbic acid (vitamin C) 500 mg/5 mL Syrup 500 mg feeding tube BID cholecalciferol (vitamin D3) 50 mcg (2,000 unit) Capsule 50 mcg feeding tube DAILY acetaminophen 160 mg/5 mL Liquid 640 mg PO Q4H PRN (Reason: pain/fever) magnesium hydroxide [Milk of Magnesia] 400 mg/5 mL Suspension 15 - 60 ml PO DAILY PRN (Reason: Constipation) Debrox 6.5 % Drops 5 drp EACH EAR DAILY PRN (Reason: Ear Wax) nystatin 100,000 unit/gram Powder 1 applic TOPICAL BID PRN (Reason: redness) acidophilus-pectin, citrus 25 million cell -100 mg tablet 1 tab G-tube DAILY Rx Instructions: [id number] nutritional supplements Powder 1 ea PO BID Rx Instructions: GIVEN VIIA G-TUBE BID docusate sodium 60 mg/15 mL Syrup 60 mg feeding tube DAILY hydrocortisone [Ala-Brown] 1 % cream 1 applic topical 4X/DAY PRN (Reason: itching) bacitracin 500 unit/gram ointment 1 applic topical 4X/DAY PRN (Reason: ABRASIONS) Manuka Honey 80 % gel 1 applic topical BID PRN (Reason: wound healing) potassium chloride 20 mEq/15 mL liquid 10 meq PO DAILY wejlznoi-cnp-acutmus gluconate [Centrum] 9 mg iron/ 15 mL (15 mL) liquid 5 ml PO DAILY guaifenesin 100 mg/5 mL liquid 200 mg GT Q4H PRN (Reason: thick secretions) trolamine salicylate [Alcis] 10 % cream 1 applic topical 4X/DAY PRN (Reason: muscle pain) GenTeal Tears Severe Gel 0.3 % gel 1 drp EACH EYE BID PRN (Reason: dry eyes) sodium chloride 0.9 % aerosol,spray 1 applic topical PRN Rx Instructions: INSTILL 30 DROPS OR 1ML EVERY HOUR NEEDED INTO TRACH TO THIN SECRETIONS (DME) OXYGEN - Supplemental ([facility] INFORMATIONAL USE ONLY) Gas See Rx Instructions .ROUTE Patient Comments: per patient's father, 3lpm bleed in to ventilator Rx Instructions: As directed levalbuterol HCl 1.25 mg/3 mL solution for nebulization 1.25 mg INHALATION BID Qty: 90 5RF (DME) True Metrix Pro Test Strip Strip See Rx Instructions .ROUTE .MEDSUPPLY Qty: 400 3RF Rx Instructions: 4 times daily, plus extra for mental status change cetirizine 5 mg/5 mL solution 10 mg PO DAILY Qty: 300 11RF fluticasone propionate [Flovent HFA] 44 mcg/actuation HFA aerosol inhaler 2 puff INHALATION BID Qty: 10.6 11RF Rx Instructions: administer with spacer levalbuterol HCl 1.25 mg/3 mL solution for nebulization 1.25 mg INHALATION Q4H PRN (Reason: sob) Qty: 150 11RF (DME) pen needle, diabetic 32 gauge x 5/32 needle See Rx Instructions .ROUTE .MEDSUPPLY Qty: 360 3RF Rx Instructions: 5 times daily insulin aspart U-100 [Novolog FlexPen U-100 Insulin] 100 unit/mL (3 mL) insulin pen 18 unit subcut .qid 90 Days Qty: 33 3RF Rx Instructions: 160 +3, 201 +5, 241 +8, 280 +10 This is sliding scale, caregiver understands how to administer. (DME) lancets [Embrace Lancets] 30 gauge misc See Rx Instructions .Route Qty: 200 8RF Rx Instructions: 4x/day (DME) True Metrix Glucose Test Strip Strip See Rx Instructions .Route Qty: 150 12RF Rx Instructions: 5 times per day with tube feedings (DME) lancets [OneTouch Delica Plus Lancet] 33 gauge misc See Rx Instructions .Route Qty: 200 8RF Rx Instructions: 5 times daily (DME) lancing device with lancets [OneTouch Delica Plus Lanc Dev] Kit See Rx Instructions .Route Qty: 1 0RF Rx Instructions: As directed (DME) OneTouch Ultra Test Strip See Rx Instructions .Route Qty: 450 3RF Rx Instructions: 5 times daily with tube feeds (DME) blood-glucose meter [OneTouch Ultra2 Meter] Misc See Rx Instructions .Route Qty: 1 0RF Rx Instructions: As directed Held methenamine hippurate 1 gram tablet 1 g PO BID Hold Instructions: Resume on 05/28/25. Referrals / Follow Up: Sandra Bermudez DO [Primary Care Provider] - Within 2 Weeks Disposition Disposition (needs filled in before D/C Order can be placed): Home Health Service Charges/Coding Visit Charges Inpatient E&M: 75028 Disch Hosp
--- NOTE | 2025-05-22 15:32 | PHA.DC.MR.R ---
Pharmacy [place] Med Reconciliation Pharmacy Service has performed discharge medication reconciliation for this patient. The patient's discharge medication list was reviewed for discrepancies and discrepancies were resolved. Medications at Discharge Home Medications baclofen 20 mg tablet 30 mg G-tube TID muscle spasms 09/02/13 oxcarbazepine 300 mg/5 mL (60 mg/mL) oral suspension (Trileptal) 8 ml G-tube BID seizure 08/28/17 diazepam 5 mg/5 mL (1 mg/mL) oral solution 5 mg feeding tube DAILY@1400 spasms 05/20/21 diazepam 5 mg/5 mL (1 mg/mL) oral solution 7 mg feeding tube BID spasms 05/20/21 ascorbic acid (vitamin C) 500 mg/5 mL oral syrup 500 mg feeding tube BID SUPPLEMENT 12/12/21 cholecalciferol (vitamin D3) 50 mcg (2,000 unit) capsule 50 mcg feeding tube DAILY SUPPLEMENT 12/12/21 ibuprofen 100 mg/5 mL oral suspension 400 mg PO Q6H PRN Pain 12/12/21 sodium chloride 0.9 % for nebulization 3 - 6 ml inhalation Q2H PRN Congestion 12/12/21 levalbuterol HCl 1.25 mg/3 mL solution for nebulization 1.25 mg (3 mL) inhalation BID BREATHING #90 mL 01/16/22 acetaminophen 160 mg/5 mL oral liquid 640 mg PO Q4H PRN pain/fever 03/31/22 acidophilus 25 million cell-pectin, citrus 100 mg tablet 1 tab G-tube DAILY supplement 03/31/22 carbamide peroxide 6.5 % ear drops (Debrox) 5 drp EACH EAR DAILY PRN Ear Wax 03/31/22 magnesium hydroxide 400 mg/5 mL oral suspension (Milk of Magnesia) 15 - 60 ml PO DAILY PRN Constipation 03/31/22 nystatin 100,000 unit/gram topical powder 1 applic topical BID PRN redness 03/31/22 ferrous sulfate 15 mg iron (75 mg)/mL oral syringe (ORAL USE) 5 ml feeding tube MOTH supplement 08/24/22 docusate sodium 60 mg/15 mL oral syrup 60 mg feeding tube DAILY stool softner 08/29/22 nutritional supplements 1 ea PO BID Check with primary doctor 08/29/22 blood sugar diagnostic (True Metrix Pro Test Strip) #400 ea 06/13/23 cetirizine 5 mg/5 mL oral solution 10 mg (10 mL) PO DAILY allergy symptoms #300 mL 03/18/23 fluticasone propionate 44 mcg/actuation HFA aerosol inhaler (Flovent HFA) 2 puff inhalation BID breathing #10.6 grams 05/23/24 levalbuterol HCl 1.25 mg/3 mL solution for nebulization 1.25 mg (3 mL) inhalation Q4H PRN sob #150 mL 05/23/24 insulin glargine 100 unit/mL (3 mL) subcutaneous pen (Basaglar KwikPen U-100 Insulin) 20 unit (0.2 mL) subcut QPM sugar #15 mL 10/24/24 artificial tears(hypromellose) 0.3 % eye gel (GenTeal Tears Severe) 1 drp EACH EYE BID PRN dry eyes 11/02/24 bacitracin 500 unit/gram topical ointment 1 applic topical 4X/DAY PRN ABRASIONS 11/02/24 guaifenesin 100 mg/5 mL oral liquid 200 mg G-tube Q4H PRN thick secretions 11/02/24 honey 80 % topical gel (Manuka Honey) 1 applic topical BID PRN wound healing 11/02/24 hydrocortisone 1 % topical cream (Ala-Brown) 1 applic topical 4X/DAY PRN itching 11/02/24 methenamine hippurate 1 gram tablet 1 g PO BID infection 11/02/24 Held on 05/22/25. Instructions: Resume on 05/28/25. pdsnosda-iajx-nlxqllx gluconate 9 mg iron/15 mL (15 mL) oral liquid (Centrum) 5 ml PO DAILY supplement 11/02/24 potassium chloride 20 mEq/15 mL oral liquid 10 meq PO DAILY supplement 11/02/24 sodium chloride 0.9 % topical spray 1 applic topical PRN trach care 11/02/24 trolamine salicylate 10 % topical cream (Alcis) 1 applic topical 4X/DAY PRN muscle pain 11/02/24 Novolog FlexPen U-100 Insulin 100 unit/mL (3 mL) subcutaneous (insulin aspart U-100) 18 unit (0.18 mL) subcut .qid sugar 90 days #33 mL 01/29/25 pen needle, diabetic 32 gauge x #360 ea 01/29/25 lancets 30 gauge (Embrace Lancets) #200 ea 02/21/25 blood sugar diagnostic (True Metrix Glucose Test Strip) #150 ea 04/03/25 lancets 33 gauge ([employer] BiosciencesTouch Delica Plus Lancet) #200 ea 04/17/25 lancing device with lancets kit ([employer] Delica Plus Lancing Device kit) #1 ea 04/17/25 blood sugar diagnostic (OneTouch Ultra Test strips) #450 ea 05/11/25 blood-glucose meter (OneTouch Ultra2 Meter) #1 ea 05/11/25 OXYGEN - Supplemental ([facility] INFORMATIONAL USE ONLY) 05/21/25 meropenem 1 gram intravenous solution 1 g IV Q8 6 days #17 ea 05/22/25
== END 2025-05-22 19:50 | disposition home health service (06) | DRG 690 ==
LOC: ED 17:17 → MS3 18:06
PROVIDERS: Admitting Provider Internal Medicine; Emergency Provider Emergency Medicine; PCP Internal Medicine
DX: N39.0 Urinary tract infection, site not specified (principal); Z99.11 Dependence on respirator [ventilator] status; E46 Unspecified protein-calorie malnutrition; J96.11 Chronic respiratory failure with hypoxia; Z93.0 Tracheostomy status; E11.9 Type 2 diabetes mellitus without complications; B96.20 Unspecified Escherichia coli [E. coli] as the cause of diseases classified elsewhere; G40.909 Epilepsy, unspecified, not intractable, without status epilepticus; G80.9 Cerebral palsy, unspecified; Z93.1 Gastrostomy status; E55.9 Vitamin D deficiency, unspecified; R19.7 Diarrhea, unspecified; Z79.4 Long term (current) use of insulin; M41.9 Scoliosis, unspecified; N20.0 Calculus of kidney; N31.9 Neuromuscular dysfunction of bladder, unspecified; Z96.0 Presence of urogenital implants; Z87.442 Personal history of urinary calculi; Z87.440 Personal history of urinary (tract) infections; Z87.19 Personal history of other diseases of the digestive system; Z79.51 Long term (current) use of inhaled steroids; Z86.19 Personal history of other infectious and parasitic diseases; Z79.899 Other long term (current) drug therapy; Z68.24 Body mass index [BMI] 24.0-24.9, adult
CPT/HCPCS: 36415; 51702; 71250; 74176; 80048; 80053; 81001; 82962; 83605; 83690; 85025; 87040; 87077; 87086; 87088; 87186; 90471; 94640; 97802; 99285; J2185; A4216

== ENCOUNTER 2025-06-14 13:56 | Outpatient (RCR) | payer MEDICARE, MEDICAID, SELFPAY ==
--- NOTE | 2025-06-25 10:51 | NS ---
06/25/25: Phone call follow-up with Rina Montero (P: [phone]) on 06/20/25 after Rina left voicemail for RDN. CMN informed her that updated enteral nutrition order was faxed to [facility] on 06/19/25 which is the same day the signed order from Dr. Welsh was provided to this RDN. Rina states she did not get enteral nutrition recommendations via mail yet. CMN emailed Rina the recommendations so that she could have them GURU. KAYLEN also received a call on 06/20/25 from Viviana (Health Navigator) (P: [phone]) at Dr. Welsh's office. CMN updated Viviana about new order. Radha Rogers RDN, LD
== END 2025-07-13 23:59 ==
LOC: NS 13:56
PROVIDERS: PCP Internal Medicine; Visit Provider Internal Medicine
DX: Z71.3 Dietary counseling and surveillance (principal); E11.9 Type 2 diabetes mellitus without complications; Z93.0 Tracheostomy status
CPT/HCPCS: 97803

== ENCOUNTER 2025-06-28 19:36 | Inpatient (IN) | payer MEDICARE, MEDICAID, SELFPAY ==
[2025-06-28] VITALS (9 sets, daily range): BP systolic 122–168; BP diastolic 48–101; PULSE 91–126; RESP 20–28; TEMP 36.5–38.1; O2SAT 99–100; BMI 24.7; BMI 24.4
--- NOTE | 2025-06-28 19:55 | EX.ED.DYSGE1 ---
HPI History of Present Illness Chief Complaint: Fever Detail of Chief Complaint: Fever Informant: patient Narrative Narrative: Patient presents to the emergency department with a fever that started today. Heart rate also elevated today. Patient has history of cerebral palsy and is essentially nonverbal. Mother takes care of her. Patient passed kidney stone yesterday. Mom caths the patient twice a day. Last year patient had gallstones apparently that were removed by Dr. Gay but patient did not require any type of surgical intervention. She has history of pneumonia and history of UTIs. [facility] Medical History (Updated 06/28/25 @ 22:[address] Davon Ceron, DO) Ventilator dependence History of cerebral palsy Renal calculi Multifocal pneumonia Ileus High serum vitamin B12 ESBL (extended spectrum beta-lactamase) producing bacteria infection On tube feeding diet History of Clostridium difficile infection MRSA infection Redness of skin Bladder disease History of renal disease Seizures Dietary restriction On home oxygen therapy Non-smoker Skin tag of vaginal mucosa Renal calculus or stone PICC (peripherally inserted central catheter) in place Bedbound Pancreatitis Kidney stones Ventilator dependent Urinary tract infection due to extended-spectrum beta lactamase (ESBL) producing Escherichia coli Recurrent UTI Staghorn renal calculus Chronic respiratory failure Allergic rhinitis due to other allergen Paraplegia Visual disturbance Amenorrhea Neuromuscular scoliosis Hyperglycemia Vitamin D deficiency Respiratory acidosis Thrush Lactic acid acidosis Bronchitis Irregular menstrual cycle 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 Bronchiectasis without acute exacerbation Severe sepsis Seizure Cerebral palsy Pneumonia Home Medications ?Medication ?Instructions ?Recorded ?Last Taken ?Type baclofen 20 mg tablet 30 mg G-tube TID muscle spasms 09/02/13 11/02/24 20:30 History oxcarbazepine 300 mg/5 mL (60 8 ml G-tube BID seizure 08/28/17 11/02/24 20:30 History mg/mL) oral suspension (Trileptal) diazepam 5 mg/5 mL (1 mg/mL) oral 5 mg feeding tube DAILY@1400 spasms 05/20/21 11/02/24 14:00 History solution diazepam 5 mg/5 mL (1 mg/mL) oral 7 mg feeding tube BID spasms 05/20/21 11/02/24 20:30 History solution ascorbic acid (vitamin C) 500 mg/5 500 mg feeding tube BID SUPPLEMENT 12/12/21 11/02/24 History mL oral syrup cholecalciferol (vitamin D3) 50 50 mcg feeding tube DAILY 12/12/21 11/02/24 History mcg (2,000 unit) capsule SUPPLEMENT ibuprofen 100 mg/5 mL oral 400 mg PO Q6H PRN Pain 12/12/21 02/24/22 History suspension sodium chloride 0.9 % for 3 - 6 ml inhalation Q2H PRN 12/12/21 02/23/22 History nebulization Congestion levalbuterol HCl 1.25 mg/3 mL 1.25 mg (3 mL) inhalation BID 01/16/22 11/02/24 Rx solution for nebulization BREATHING #90 mL acetaminophen 160 mg/5 mL oral 640 mg PO Q4H PRN pain/fever 03/31/22 Unknown History liquid acidophilus 25 million 1 tab G-tube DAILY supplement 03/31/22 11/02/24 History cell-pectin, citrus 100 mg tablet carbamide peroxide 6.5 % ear drops 5 drp EACH EAR DAILY PRN Ear Wax 03/31/22 Unknown History (Debrox) nystatin 100,000 unit/gram topical 1 applic topical BID PRN redness 03/31/22 Unknown History powder ferrous sulfate 15 mg iron (75 5 ml feeding tube MOTH supplement 08/24/22 11/02/24 History mg)/mL oral syringe (ORAL USE) nutritional supplements 1 ea PO BID Check with primary 08/29/22 Unknown History doctor blood sugar diagnostic (True #400 ea 02/23/23 Unknown Rx Metrix Pro Test Strip) fluticasone propionate 44 2 puff inhalation BID breathing 05/23/24 11/02/24 Rx mcg/actuation HFA aerosol inhaler #10.6 grams (Flovent HFA) levalbuterol HCl 1.25 mg/3 mL 1.25 mg (3 mL) inhalation Q4H PRN 05/23/24 Unknown Rx solution for nebulization sob #150 mL insulin glargine 100 unit/mL (3 20 unit (0.2 mL) subcut QPM sugar 10/24/24 11/01/24 Rx mL) subcutaneous pen (Basaglar #15 mL KwikPen U-100 Insulin) artificial tears(hypromellose) 0.3 1 drp EACH EYE BID PRN dry eyes 11/02/24 Unknown History % eye gel (GenTeal Tears Severe) bacitracin 500 unit/gram topical 1 applic topical 4X/DAY PRN 11/02/24 Unknown History ointment ABRASIONS guaifenesin 100 mg/5 mL oral liquid 200 mg G-tube Q4H PRN thick 11/02/24 Unknown History secretions honey 80 % topical gel ([place]uka 1 applic topical BID PRN wound 11/02/24 Unknown History Honey) healing hydrocortisone 1 % topical cream 1 applic topical 4X/DAY PRN itching 11/02/24 Unknown History (Ala-Brown) methenamine hippurate 1 gram tablet 1 g PO BID infection 11/02/24 11/02/24 History lzrpupfw-xftv-cfolyyy gluconate 9 5 ml PO DAILY supplement 11/02/24 11/02/24 History mg iron/15 mL (15 mL) oral liquid (Centrum) potassium chloride 20 mEq/15 mL 10 meq PO DAILY supplement 11/02/24 11/02/24 History oral liquid sodium chloride 0.9 % topical spray 1 applic topical PRN trach care 11/02/24 Unknown History trolamine salicylate 10 % topical 1 applic topical 4X/DAY PRN muscle 11/02/24 Unknown History cream (Alcis) pain pen needle, diabetic 32 gauge x #360 ea 01/29/25 Unknown Rx lancets 30 gauge (Embrace Lancets) #200 ea 02/21/25 Unknown Rx blood sugar diagnostic (True #150 ea 04/03/25 Unknown Rx Metrix Glucose Test Strip) lancets 33 gauge (OneTouch Delica #200 ea 04/17/25 Unknown Rx Plus Lancet) lancing device with lancets kit #1 ea 04/17/25 Unknown Rx (OneTouch Delica Plus Lancing Device kit) blood sugar diagnostic (OneTouch #450 ea 05/11/25 Unknown Rx Ultra Test strips) blood-glucose meter (OneTouch #1 ea 05/11/25 Unknown Rx Ultra2 Meter) OXYGEN - Supplemental ([facility] 05/21/25 Unknown History INFORMATIONAL USE ONLY) insulin aspart U-100 100 unit/mL 18 unit (0.18 mL) subcut .qid 05/28/25 Unknown Rx (3 mL) subcutaneous pen (Novolog sugar 90 days #33 mL FlexPen U-100 Insulin aspart) cetirizine 5 mg/5 mL oral solution 10 mg PO DAILY PRN allergy symptoms 06/28/25 Unknown History nut.tx.impaired digest fxn 13 296 ea PO 4X/DAY 06/28/25 Unknown History gram-421 kcal/100 g oral powder Allergy/AdvReac Type Severity Reaction Status Date / Time linezolid Allergy Severe Other - Verified 05/20/25 13:11 seizure & coma vancomycin Allergy Severe Other - Verified 05/20/25 13:11 kidney failure tobramycin Allergy Intermediate Other - Verified 05/20/25 13:11 turned beet red ertapenem Allergy Mild Hives Verified 05/20/25 13:11 nafcillin Allergy Mild Rash Verified 05/20/25 13:11 benzoin Allergy Unknown Rash Verified 05/20/25 13:11 milk Allergy Unknown Other Verified 05/20/25 13:11 soy Allergy Unknown Other Verified 05/20/25 13:11 polyethylene glycol 3350 AdvReac Unknown Hives Verified 05/20/25 13:11 (From Miralax) Family History Grandmother Cancer maternal Other Adopted Surgical History Presence of intrathecal baclofen pump Gastrostomy tube in place Status post Jorje fundoplication H/O spinal fusion rods to back surgery on gland under tongue eyes straightened derotatox ostomies tendonatomies Tracheostomy status Social History household members: other details: Mother and is vent dependent housing: house Smoking Status: Never smoker second hand exposure: No alcohol intake: never substance use type: does not use ROS ROS ED Review of Systems ROS Unobtainable: due to encephalopathy, due to endotracheal tube, due to mental condition, due to mental status and other Constitutional Constitutional ED: Reports lethargy; Denies chills, fever(s), sweats or weight loss Eyes Eyes: Denies blurry vision, change in vision or diplopia ENT ENT ED: Denies rhinorrhea or sore throat Cardiovascular Cardiovascular: Denies chest pain, orthopnea or racing heartbeat Respiratory/Chest Respiratory/Chest: Reports dyspnea and dyspnea on exertion; Denies cough, orthopnea or sputum Gastrointestinal Gastrointestinal: Denies abdominal pain, diarrhea, nausea or vomiting Genitourinary Genitourinary ED: Denies dysuria, hematuria or urinary frequency Musculoskeletal Musculoskeletal: Denies arthralgias, back pain, myalgias or neck pain Integumentary Denies abscess, Abrasions or rash Neurologic Neurologic: Denies headache(s) or weakness Psychiatric Psychiatric: Denies anxiety, depression or suicidal thoughts Endocrine Endocrinology: Denies polydipsia, polyphagia or polyuria Hematologic/Lymphatic Hematologic/Lymphatic: Denies easy bleeding, easy bruising or lymphadenopathy Allergic/Immunologic Allergic/Immunologic ED: Denies mouth swelling, tongue swelling or urticaria EXAM Physical Exam Const Vital Signs: 06/28/25 19:37 06/28/25 19:40 06/28/25 19:40 Temperature 100.6 F H 100.6 F H Temperature Source Axillary Oral Pulse Rate 122 H 122 H Respiratory Rate 20 H 22 H Respiratory Pattern Tachypnea Blood Pressure 140/101 H 140/101 H Blood Pressure Mean 114 114 Pulse Ox 99 99 Oxygen Delivery Method Mechanical Ventilator Mechanical Ventilator Fraction of Inspired Oxygen (FIO2) 06/28/25 20:40 06/28/25 21:00 Temperature 97.7 F L 99.9 F H Temperature Source Axillary Axillary Pulse Rate 124 H 126 H Respiratory Rate 24 H 28 H Respiratory Pattern Blood Pressure 168/48 H 130/89 H Blood Pressure Mean 88 102 Pulse Ox 100 100 Oxygen Delivery Method Mechanical Ventilator Mechanical Ventilator Fraction of Inspired Oxygen (FIO2) 30 30 Positive well nourished and well developed General Appearance ED: well developed and NAD HEENT Reports TM's clear and moist mucous membranes HEENT Narrative: Facial erythema/flushing, tracheostomy in place. normocephalic and atraumatic; Negative for trauma or tenderness Tympanic Membrane ED: Yes TM's clear Eyes PERRL and EOMs intact bilaterally General Eye ED: Negative for pale conjunctiva or scleral icterus Neck no lymphadenopathy, supple and no JVD General: Negative for tenderness Chest Wall inspection of chest normal and palpation of chest normal Chest: Negative for tenderness Resp normal respiratory effort and clear to auscultation bilaterally Effort and Inspection: Negative for respiratory distress or pain with movement Auscultation: Negative for rhonchi, wheezes or diminished lung sounds Cardio regular rate, regular rhythm, S1 normal heart sound, S2 normal heart sound and no murmurs Peripheral Pulses: pulses 2+ throughout GI normal to inspection, nondistended, normoactive bowel sounds, soft to palpation, non-tender, non-distended and no masses GI Narrative: Mild diffuse tenderness. There is no rebound or rigidity. G-tube in place Back/Spine no CVA tenderness and no thoracic nor lumbar tenderness Extremity normal to inspection General Extremety ED: Negative for edema General Extremity: Negative for edema Neuro oriented x3, CN's II-XII intact bilaterally, no sensory deficits noted and gait normal Sensorium / Orientation: awake, alert, oriented to person, oriented to place and oriented to time Motor Exam: strength 5/5 throughout and strength abnormal Psych mental status grossly normal Skin no rashes or lesions noted and no wounds MDM MDM MDM Narrative Medical decision making narrative: Patient presents to the emergency department with fever. Passed kidney stone recently. Mom has to cath patient twice a day for urine. Patient nonverbal. IV line established. Blood cultures ordered. CBC with differential obtained showed white count of 10.1 with hemoglobin 13 and platelet count 261. Chemistries unremarkable. Glucose 127. Lactate slightly elevated 2.1. Urinalysis positive for nitrites as well as 500 leukocyte esterase. Patient started on Zosyn IV given that she during her last urine culture grew out ESBL E. coli that had some resistance to some antibiotics and patient has allergies to certain antibiotics. Mother states that at the age of 88 years old she had some facial redness associated with nafcillin but since then has had amoxicillin and Augmentin multiple times and has not had any issue with it. CT scan of the abdomen pelvis showed thickening of the bladder wall and small stones within the bladder consistent with recent history of passing kidney stones which she has a history of. No obstructive stones noted. COVID flu and RSV testing was negative. Chest x-ray unremarkable. Patient received normal saline and was given Tylenol through the gastric tube. Will discuss case with hospitalist to evaluate patient for admission. Lab Data Attestation: I reviewed the patient's lab results. Labs: Laboratory Results - last 24 hr 06/28/25 06/28/25 20:20 20:45 WBC 10.1 RBC 4.19 L Hgb 13.1 Hct 40.1 MCV 95.7 MCH 31.3 MCHC 32.7 RDW Std Deviation 44.8 H RDW Coeff of Anne 12.8 Plt Count 261 MPV 9.8 Immature Gran % (Auto) 0.600 Neut % (Auto) 73.4 H Lymph % (Auto) 11.8 L Harrison % (Auto) 13.2 H Eos % (Auto) 0.5 Baso % (Auto) 0.5 Absolute Neuts (auto) 7.4 Absolute Lymphs (auto) 1.20 Nucleated RBC % 0 Sodium 133 Potassium 4.2 Chloride 97 L Carbon Dioxide 23.5 Anion Gap 13 BUN 4 Creatinine 0.32 L Estim Creat Clear Calc 176.25 Est GFR (MDRD) Non-Af 139 BUN/Creatinine Ratio 12.8 Glucose 127 H Lactic Acid 2.1 H* Calcium 9.9 Total Bilirubin 0.24 AST 22 ALT 18 Alkaline Phosphatase 88 Total Protein 7.9 Albumin 4.3 Globulin 3.6 Albumin/Globulin Ratio 1.2 Urine Color Straw Urine Clarity Cloudy Urine pH 8.0 Ur Specific [place] 1.010 Urine Protein 15 H Urine Glucose (UA) Normal Urine Ketones Negative Urine Occult Blood 50 H Urine Nitrite Positive H Urine Bilirubin Negative Urine Urobilinogen Normal Ur Leukocyte Esterase 500 H Urine RBC 0-5 SEEN Urine WBC >100 SEEN Ur Squamous Epith Cells 10-25 SEEN Urine Bacteria 4+ Urine Mucus 0 SEEN Radiography Diagnostic Testing: Clinical Impression(s) from Imaging Studies Abdomen/Pelvis CT 06/28/25 19:57 IMPRESSION: 1. Several bilateral subcentimeter nonobstructive renal stones. Few small stones within the urinary bladder, raising the possibility of a recently passed stone. 2. Circumferential bladder wall thickening, may reflect hypertrophy versus cystitis. 3. Nonspecific fluid throughout the colon may reflect a diarrheal illness. 4. Ancillary findings as noted above. Reading Location: [facility] Chest X-Ray 06/28/25 21:05 IMPRESSION: No acute process in the chest Reading Location: [facility] Discharge Plan Dx/Rx/DC Orders Clinical Impression: UTI (urinary tract infection), Tachycardia, Sepsis Disposition Disposition: Acute Care [facility]
--- NOTE | 2025-06-28 19:57 | CT_ITS ---
PROCEDURE: CT ABDOMEN/PELVIS WITHOUT CONT 06/28/2025 REASON FOR EXAM: ABDOMINAL PAIN TECHNIQUE: Procedure Code: [id number] Modality: CT Procedure: ABDOMEN/PELVIS WITHOUT CONT Noncontrast technique limits evaluation of the abdominal and pelvic viscera. Coronal and Sagittal reconstruction series were provided. One or more dose reduction techniques were used (e.g., Automated exposure control, adjustment of the mA and/or kV according to patient size, use of iterative reconstruction technique). RADIATION DOSE SUMMARY: CTDlvol: 10.17 mGy DLP: 526.2 mGycm COMPARISON: 05/20/2025 FINDINGS: Lung bases: Clear, mild dependent atelectasis. Liver: Unremarkable. Gallbladder: Unremarkable. Spleen: Unremarkable. Pancreas: Unremarkable. Adrenals: Unremarkable. Kidneys: Several bilateral subcentimeter nonobstructive renal stones. No ureteral calculi or hydronephrosis on either side. Few small calculi at the dorsal right aspect of the bladder. Bladder: Underdistended. Circumferential bladder wall thickening, which may reflect hypertrophy. No pericystic inflammatory changes appreciated. Reproductive Organs: Grossly unremarkable. Right ovary is slightly enlarged containing a cyst measuring roughly 2.9 cm, no significant change. No free pelvic fluid. Bowel: Percutaneous gastrostomy tube within the anterior stomach body. No evidence of obstruction or active inflammatory process. Normal appendix. Fluid throughout the colon may reflect a nonspecific diarrheal illness, with hyperdense ingested material versus enteric contrast. Lymph nodes: No suspicious lymph node enlargement. Vasculature: Normal caliber abdominal aorta. Peritoneum / Retroperitoneum: No ascites or free air. Musculoskeletal: No acute abnormality. Severe scoliosis and contractures related to cerebral palsy. Multisegment corrective metallic spinal hardware, intact as visualized. CT/Abdomen/Pelvis without Cont IMPRESSION: 1. Several bilateral subcentimeter nonobstructive renal stones. Few small stone s within the urinary bladder, raising the possibility of a recently passed stone. 2. Circumferential bladder wall thickening, may reflect hypertrophy versus cyst itis. 3. Nonspecific fluid throughout the colon may reflect a diarrheal illness. 4. Ancillary findings as noted above. Reading Location: [id number]
[2025-06-28 20:36] LABS: Hematocrit 40.1 % (37-47); Hemoglobin 13.1 g/dL (12.0-15.0); Immature Granulocytes Count 0.060 X10^3/uL (0.0-0.0); Mean Corp Hgb Conc 32.7 g/dL (32-36); Mean Corpuscular Volume 95.7 fL (81-99); Mean Platelet Vol. 9.8 fl (6.2-12.0); NRBC Flagged by Analyzer 0 % (0-5); Platelet Count 261 K/mm3 (150-450); RBC Distribution Width CV 12.8 % (11.6-14.6); RBC Distribution Width SD 44.8 fl (35.1-43.9); Red Blood Count 4.19 M/mm3 (4.2-5.4); White Blood Count 10.1 K/mm3 (4.4-11.0)
[2025-06-28 20:50] LABS: Mucous, Urine 0 SEEN /hpf (<or=2+)
--- NOTE | 2025-06-28 21:05 | RAD_ITS ---
PROCEDURE: CHEST 1 VIEW (PORTABLE) 06/28/2025 REASON FOR EXAM: FEVER TECHNIQUE: Frontal view of the chest. COMPARISON: 10/2024 FINDINGS: Tracheostomy. Stable significant scoliosis, Mckeon angelo. Given limitations of exam, there is no obvious consolidation in either lung. The cardiomediastinal silhouette is stable. No acute abnormality in the bony thorax. RAD/Chest 1 View (Portable) IMPRESSION: No acute process in the chest Reading Location: [id number]
[2025-06-28 21:18] LABS: Color, Urine Straw (Yellow); Glucose, Dipstick Normal (Normal); Ketone-Dipstick Negative (Negative); Leukocyte Esterase-Dipstick 500 /ul (Negative); Nitrite-Dipstick Positive (Negative); Occult Blood-Urine 50 /ul (Negative); Protein-Dipstick 15 mg/dl (Negative); Specific Gravity, Urine 1.010 (1.002-1.030); Urine Bilirubin Dipstick Negative (Negative)
[2025-06-28 21:25] LABS: AST(SGOT) 22 U/L (<=31); Alanine Aminotransfer ALT/SGPT 18 U/L (<=34); Albumin, Serum 4.3 g/dL (3.5-5.0); Alkaline Phosphatase 88 U/L (35-104); Anion Gap 13 (5-15); BUN 4 mg/dL (4-19); BUN/Creat Ratio 12.8 RATIO (10-20); Calcium,Total 9.9 mg/dL (7.6-11.0); Carbon Dioxide 23.5 mmol/L (21.0-32.0); Chloride 97 mmol/L (98-108); Estimated Creatinine Clearance 176.25 ml/min (50-250); Globulin 3.6 g/dL (2.2-4.2); Glucose 127 mg/dL (70-99); Potassium 4.2 mmol/L (3.3-5.1)
[2025-06-28] MEDS: 0.9% Normal Saline (1000mL) 1,000 ML 150 ML IV (21:26)
[2025-06-28] MEDS: Piperacil/Tazobactam 4.5 GM in 0.9% Normal Saline (100mL MB+) 100 ML IV (21:37)
--- NOTE | 2025-06-28 22:14 | HP.PCM.HOS_ITS ---
HPI - General General Date of Admission: 06/28/25 Date of Service: 06/28/25 Chief Complaint: fever HPI Narrative MANDY RIVERA, is a 35 F with a PMH as outlined including cerebral palsy, who is nonverbal at baseline and on a chronic ventilator. She was admitted with a complaint of fever and elevated heart rate. She passed a kidney stone the day prior to admission and she apparently passes kidney stones frequently and follows with urology. Her mom straight caths her twice a day to drain urine. Unable to do comprehensive review of systems as she is nonverbal. History was obtained from her mother who was present at her bedside. Vitals in the ED were BP of 130/99, SD of 126, RR of 28 and temp of 99.9F. SHe was on her chronic mechanical ventilator. CBC showed Hb o 13.1, wbc of 10.1 nad platelets of 261. CHemistry showed sodium of 133, potassium of 4.2 nad bicarb of 23.5. Creatinine is 0.32. Lactic acid was 2.1. Urinalysis showed evidence of UTI with elevated leucocyte esterase and positive nitrites. Urine microbiology was pending. She is being admitted to be managed for sepsis due to UTI in the setting of recurrent kidney stones. [facility]LY [facility] Medical History (Updated 06/28/25 @ 22:[address] Davon Ceron, ) Ventilator dependence History of cerebral palsy Renal calculi Multifocal pneumonia Ileus High serum vitamin B12 ESBL (extended spectrum beta-lactamase) producing bacteria infection On tube feeding diet History of Clostridium difficile infection MRSA infection Redness of skin Bladder disease History of renal disease Seizures Dietary restriction On home oxygen therapy Non-smoker Skin tag of vaginal mucosa Renal calculus or stone PICC (peripherally inserted central catheter) in place Bedbound Pancreatitis Kidney stones Ventilator dependent Urinary tract infection due to extended-spectrum beta lactamase (ESBL) producing Escherichia coli Recurrent UTI Staghorn renal calculus Chronic respiratory failure Allergic rhinitis due to other allergen Paraplegia Visual disturbance Amenorrhea Neuromuscular scoliosis Hyperglycemia Vitamin D deficiency Respiratory acidosis Thrush Lactic acid acidosis Bronchitis Irregular menstrual cycle 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 Bronchiectasis without acute exacerbation Severe sepsis Seizure Cerebral palsy Pneumonia Home Medications ?Medication ?Instructions ?Recorded ?Last Taken ?Type baclofen 20 mg tablet 30 mg G-tube TID muscle spas ms 09/02/13 11/02/24 20:30 History oxcarbazepine 300 mg/5 mL (60 8 ml G-tube BID seizure 08/28/17 11/02/24 20:30 History mg/mL) oral suspension (Trileptal) diazepam 5 mg/5 mL (1 mg/mL) oral 5 mg feeding tube DA JANAK@1400 spasms 05/20/21 11/02/24 14:00 History solution diazepam 5 mg/5 mL (1 mg/mL) oral 7 mg feeding tube BI D spasms 05/20/21 11/02/24 20:30 History solution ascorbic acid (vitamin C) 500 mg/5 500 mg feeding tube BID SUPPLEMENT 12/12/21 11/02/24 History mL oral syrup cholecalciferol (vitamin D3) 50 50 mcg feeding tube DA JANAK 12/12/21 11/02/24 History mcg (2,000 unit) capsule SUPPLEMENT ibuprofen 100 mg/5 mL oral 400 mg PO Q6H PRN Pain 04/0 10/0402/24/22 History suspension sodium chloride 0.9 % for 3 - 6 ml inhalation Q2H PRN 12/12/21 02/23/22 History nebulization Congestion levalbuterol HCl 1.25 mg/3 mL 1.25 mg (3 mL) inhalatio n BID 01/16/22 11/02/24 Rx solution for nebulization BREATHING #90 mL acetaminophen 160 mg/5 mL oral 640 mg PO Q4H PRN pain/ fever 03/31/22 Unknown History liquid acidophilus 25 million 1 tab G-tube DAILY supplemen t 03/31/22 11/02/24 History cell-pectin, citrus 100 mg tablet carbamide peroxide 6.5 % ear drops 5 drp EACH EAR ZACHERY Y PRN Ear Wax 03/31/22 Unknown History (Debrox) nystatin 100,000 unit/gram topical 1 applic topical BI D PRN redness 03/31/22 Unknown History powder ferrous sulfate 15 mg iron (75 5 ml feeding tube MOTH supplement 08/24/22 11/02/24 History mg)/mL oral syringe (ORAL USE) nutritional supplements 1 ea PO BID Check with prima ry 08/29/22 Unknown History doctor blood sugar diagnostic (True #400 ea 02/23/23 Unknown Rx Metrix Pro Test Strip) fluticasone propionate 44 2 puff inhalation BID breath ing 05/23/24 11/02/24 Rx mcg/actuation HFA aerosol inhaler #10.6 grams (Flovent HFA) levalbuterol HCl 1.25 mg/3 mL 1.25 mg (3 mL) inhalatio n Q4H PRN 05/23/24 Unknown Rx solution for nebulization sob #150 mL insulin glargine 100 unit/mL (3 20 unit (0.2 mL) subcu t QPM sugar 10/24/24 11/01/24 Rx mL) subcutaneous pen (Basaglar #15 mL KwikPen U-100 Insulin) artificial tears(hypromellose) 0.3 1 drp EACH EYE BID PRN dry eyes 11/02/24 Unknown History % eye gel (GenTeal Tears Severe) bacitracin 500 unit/gram topical 1 applic topical 4X/D AY PRN 11/02/24 Unknown History ointment ABRASIONS guaifenesin 100 mg/5 mL oral liquid 200 mg G-tube Q4H PRN thick 11/02/24 Unknown History secretions honey 80 % topical gel ([place] 1 applic topical BID SD N wound 11/02/24 Unknown History Honey) healing hydrocortisone 1 % topical cream 1 applic topical 4X/D AY PRN itching 11/02/24 Unknown History (Ala-Brown) methenamine hippurate 1 gram tablet 1 g PO BID infecti on 11/02/24 11/02/24 History wqrjtwtt-ptin-ijqhrpt gluconate 9 5 ml PO DAILY supple ment 11/02/24 11/02/24 History mg iron/15 mL (15 mL) oral liquid (Centrum) potassium chloride 20 mEq/15 mL 10 meq PO DAILY supple ment 11/02/24 11/02/24 History oral liquid sodium chloride 0.9 % topical spray 1 applic topical P RN trach care 11/02/24 Unknown History trolamine salicylate 10 % topical 1 applic topical 4X/ DAY PRN muscle 11/02/24 Unknown History cream (Alcis) pain pen needle, diabetic 32 gauge x #360 ea 01/29/25 Unkno wn Rx lancets 30 gauge (Embrace Lancets) #200 ea 02/21/25 Un known Rx blood sugar diagnostic (True #150 ea 04/03/25 Unknown Rx Metrix Glucose Test Strip) lancets 33 gauge (OneTouch Delica #200 ea 04/17/25 Unk nown Rx Plus Lancet) lancing device with lancets kit #1 ea 04/17/25 Unknown Rx (OneTouch Delica Plus Lancing Device kit) blood sugar diagnostic (OneTouch #450 ea 05/11/25 Unkn own Rx Ultra Test strips) blood-glucose meter (OneTouch #1 ea 05/11/25 Unknown R x Ultra2 Meter) OXYGEN - Supplemental ([facility] 05/21/25 Unknown History INFORMATIONAL USE ONLY) insulin aspart U-100 100 unit/mL 18 unit (0.18 mL) sub cut .qid 05/28/25 Unknown Rx (3 mL) subcutaneous pen (Novolog sugar 90 days #33 mL FlexPen U-100 Insulin aspart) cetirizine 5 mg/5 mL oral solution 10 mg PO DAILY PRN allergy symptoms 06/28/25 Unknown History nut.tx.impaired digest fxn 13 296 ea PO 4X/DAY 5 Unknown History gram-421 kcal/100 g oral powder Allergy/AdvReac Type Severity Reaction Status Date / Time linezolid Allergy Severe Other - Verified 06/28/25 22:46 seizure & coma vancomycin Allergy Severe Other - Verified 06/28/25 22:46 kidney failure meropenem (From Merrem) Allergy Intermediate Rash Verified 06/28/25 22:46 tobramycin Allergy Intermediate Other - Verified 06/28/25 22:46 turned beet red ertapenem Allergy Mild Hives Verified 06/28/25 22:46 nafcillin Allergy Mild Rash Verified 06/28/25 22:46 benzoin Allergy Unknown Rash Verified 06/28/25 22:46 milk Allergy Unknown Other Verified 06/28/25 22:46 soy Allergy Unknown Other Verified 06/28/25 22:46 polyethylene glycol 3350 AdvReac Unknown Hives Verified 06/28/25 22:46 (From Miralax) Family History Grandmother Cancer maternal Other Adopted Surgical History Presence of intrathecal baclofen pump Gastrostomy tube in place Status post Jorje fundoplication H/O spinal fusion rods to back surgery on gland under tongue eyes straightened derotatox ostomies tendonatomies Tracheostomy status Social History household members: other details: Mother and is vent dependent housing: house Smoking Status: Never smoker second hand exposure: No alcohol intake: never substance use type: does not use ROS Review of Systems ROS Unobtainable: other Details: patient chronically nonverbal due to cerebral palsy Vital Signs Vital Signs Vital Signs: 06/28/25 19:37 06/28/25 19:40 06/28/25 19:40 Temperature 100.6 F H 100.6 F H Temperature Source Axillary Oral Pulse Rate 122 H 122 H Respiratory Rate 20 H 22 H Respiratory Pattern Tachypnea Blood Pressure 140/101 H 140/101 H Blood Pressure Mean 114 114 Pulse Ox 99 99 Oxygen Delivery Method Mechanical Ventilator Mechanical Ventilator Fraction of Inspired Oxygen (FIO2) 06/28/25 20:40 06/28/25 21:00 Temperature 97.7 F L 99.9 F H Temperature Source Axillary Axillary Pulse Rate 124 H 126 H Respiratory Rate 24 H 28 H Respiratory Pattern Blood Pressure 168/48 H 130/89 H Blood Pressure Mean 88 102 Pulse Ox 100 100 Oxygen Delivery Method Mechanical Ventilator Mechanical Ventilator Fraction of Inspired Oxygen (FIO2) 30 30 Weight Weight: 106 lb 4.205 oz Body Mass Index (BMI) 24.7 Physical Exam Const Constitutional Narrative: chronically nonverbal, intubated on her chronic ventilator HEENT normocephalic and head/scalp atraumatic HEENT Narrative: dry oral mucosa Eyes EOMs intact bilaterally Neck supple Resp Resp Narrative: chronically intubated and on a ventilator. Moderately diminished breath sounds bibasally, no wheezes or crackles. tachypneic Cardio regular rhythm, S1 normal heart sound, S2 normal heart sound and no murmurs Cardio Narrative: tachycardic GI normal to inspection, nondistended, normoactive bowel sounds, soft to palpation and non-tender GI Narrative: has PEG tube in situ Extremity Extremity Narrative: has chronic contractures of both lower extremities Neuro Neuro Narrative: cerebral palsy, nonverbal, chronic contractures of both lower extremities Results Lab / Micro Data 06/29/25 04:00 06/29/25 04:00 Labs: Laboratory Results - last 24 hr 06/28/25 20:20: WBC 10.1, RBC 4.19 L, Hgb 13.1, Hct 40.1, MCV 95.7, MCH 31.3, MCHC 32.7, RDW Std Deviation 44.8 H, RDW Coeff of Anne 12.8, Plt Count 261, MPV 9.8, Immature Gran % (Auto) 0.600, Neut % (Auto) 73.4 H, Lymph % (Auto) 11.8 L, [place] % (Auto) 13.2 H, Eos % (Auto) 0.5, Baso % (Auto) 0.5, Absolute Neuts (auto) 7.4, Absolute Lymphs (auto) 1.20, Nucleated RBC % 0, Sodium 133, Potassium 4.2, Chloride 97 L, Carbon Dioxide 23.5, Anion Gap 13, BUN 4, Creatinine 0.32 L, Estim Creat Clear Calc 176.25, Est GFR (MDRD) Non-Af 139, BUN/Creatinine Ratio 12.8, Glucose 127 H, Lactic Acid 2.1 H*, Calcium 9.9, Total Bilirubin 0.24, AST 22, ALT 18, Alkaline Phosphatase 88, Total Protein 7.9, Albumin 4.3, Globulin 3.6, Albumin/Globulin Ratio 1.2 06/28/25 20:45: Urine Color Straw, Urine Clarity Cloudy, Urine pH 8.0, Ur Specific [place] 1.010, Urine Protein 15 H, Urine Glucose (UA) Normal, Urine Ketones Negative, Urine Occult Blood 50 H, Urine Nitrite Positive H, Urine Bilirubin Negative, Urine Urobilinogen Normal, Ur Leukocyte Esterase 500 H Micro: Microbiology 06/28/25 20:15 Mucosa - Nose SARS-CoV-2, Influenza & RSV (PCR) - Final Imaging Radiology Impression Abdomen/Pelvis CT 06/28/25 19:57 IMPRESSION: 1. Several bilateral subcentimeter nonobstructive renal stones. Few small stones within the urinary bladder, raising the possibility of a recently passed stone. 2. Circumferential bladder wall thickening, may reflect hypertrophy versus cystitis. 3. Nonspecific fluid throughout the colon may reflect a diarrheal illness. 4. Ancillary findings as noted above. Reading Location: [facility] Chest X-Ray 06/28/25 21:05 IMPRESSION: No acute process in the chest Reading Location: [facility] Assessment & Plan Assessment/Plan (1) UTI (urinary tract infection): (2) Sepsis: PLAN: Plan #Sepsis due to UTI in the setting of recurrent kidney stones * Patient admitted with a complaint of fever. She is nonverbal so unable to do review of systems. Urine showed 4+ bacteria. Urine is chronically colonized but in light of her fever and have recently passed a kidney stone I think it is reasonable to treat her for UTI. She is tachycardic and tachypneic and lactic acid also elevated. * Previous urine cultures from 05/20/2025 grew ESBL E. coli. * Was started on IV Zosyn. Will continue. She was ordered meropenem during her last admission but it seems she developed a rash to it, and so it is now listed as an allergy. * Get urine cultures and blood cultures. * On methenamine chronically #Type 2 diabetes mellitus: On Lantus 20 units nightly. Insulin sliding scale. Accu-Cheks ACHS. #History of cerebral palsy * She is nonverbal. Chronically on a ventilator. * Consult PT OT. * Fall precautions. * #Chronic hypoxic respiratory failure * This is in the setting of cerebral palsy. * Chronically on a ventilator. Vent management as per critical care. #History of recurrent kidney stones: Recently passed a kidney stone. Usually follows with Dr. Guajardo urologist on outpatient basis. #Nutrition: Has a PEG tube in situ. Continue tube feeds. DVT prophylaxis: Lovenox CODE STATUS: DNRCCA with intubation Charges/Coding Visit Charges Inpatient E&M: 98136 Init Hosp L3
[2025-06-28 22:15] LABS: Squamous Epithelial Cells - UA 10-25 SEEN /hpf (5-10)
[2025-06-28 22:16] LABS: Red Blood Cells-Urine 0-5 SEEN /hpf (0-5)
[2025-06-28] MEDS: Acetaminophen 650 MG/20 ML UDC GT (22:27)
[2025-06-28] MEDS: 0.9% Normal Saline (1000mL) 1,000 ML 999 ML IV (22:29)
[2025-06-29] VITALS (14 sets, daily range): BP systolic 90–126; BP diastolic 51–82; PULSE 69–102; RESP 14–27; TEMP 36.6–37.2; O2SAT 100; BMI 24.5
[2025-06-29] MEDS: 0.9% Normal Saline (1000mL) 1,000 ML 150 ML IV ×4 (00:01→21:53)
--- NOTE | 2025-06-29 00:12 | CON.PCM.CC_ITS ---
HPI Consult Data Date of Consult: 06/29/25 HPI Narrative Reason for Consultation: Vent management HPI Narrative: This is a 35-year-old female admitted to the ICU for sepsis, UTI. She has past medical history of cerebral palsy, nonverbal, status post trach/PEG, ESBL UTIs, prior C. difficile infection, lithotripsy, pancreatitis, diabetes, seizure disorder. She is brought into the ED for concern of sepsis, UTI after passing a kidney stone earlier. UA was concerning for UTI. CT abdomen pelvis did not show any obstructing kidney stones. She has been initiated on Zosyn. She is stable on home ventilator which is pressure control 15, 14. Tidal volume is 450. Father is at bedside who states no issues with ventilator, has not noticed increased secretions. [facility] Medical History (Updated 06/28/25 @ 22:[address] Davon Ceron, ) Ventilator dependence History of cerebral palsy Renal calculi Multifocal pneumonia Ileus High serum vitamin B12 ESBL (extended spectrum beta-lactamase) producing bacteria infection On tube feeding diet History of Clostridium difficile infection MRSA infection Redness of skin Bladder disease History of renal disease Seizures Dietary restriction On home oxygen therapy Non-smoker Skin tag of vaginal mucosa Renal calculus or stone PICC (peripherally inserted central catheter) in place Bedbound Pancreatitis Kidney stones Ventilator dependent Urinary tract infection due to extended-spectrum beta lactamase (ESBL) producing Escherichia coli Recurrent UTI Staghorn renal calculus Chronic respiratory failure Allergic rhinitis due to other allergen Paraplegia Visual disturbance Amenorrhea Neuromuscular scoliosis Hyperglycemia Vitamin D deficiency Respiratory acidosis Thrush Lactic acid acidosis Bronchitis Irregular menstrual cycle 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 Bronchiectasis without acute exacerbation Severe sepsis Seizure Cerebral palsy Pneumonia Home Medications ?Medication ?Instructions ?Recorded ?Last Taken ?Type baclofen 20 mg tablet 30 mg G-tube TID muscle spas ms 09/02/13 11/02/24 20:30 History oxcarbazepine 300 mg/5 mL (60 8 ml G-tube BID seizure 08/28/17 11/02/24 20:30 History mg/mL) oral suspension (Trileptal) diazepam 5 mg/5 mL (1 mg/mL) oral 5 mg feeding tube DA JANAK@1400 spasms 05/20/21 11/02/24 14:00 History solution diazepam 5 mg/5 mL (1 mg/mL) oral 7 mg feeding tube BI D spasms 05/20/21 11/02/24 20:30 History solution ascorbic acid (vitamin C) 500 mg/5 500 mg feeding tube BID SUPPLEMENT 12/12/21 11/02/24 History mL oral syrup cholecalciferol (vitamin D3) 50 50 mcg feeding tube DA JANAK 12/12/21 11/02/24 History mcg (2,000 unit) capsule SUPPLEMENT ibuprofen 100 mg/5 mL oral 400 mg PO Q6H PRN Pain 04/0 10/0402/24/22 History suspension sodium chloride 0.9 % for 3 - 6 ml inhalation Q2H PRN 12/12/21 02/23/22 History nebulization Congestion levalbuterol HCl 1.25 mg/3 mL 1.25 mg (3 mL) inhalatio n BID 01/16/22 11/02/24 Rx solution for nebulization BREATHING #90 mL acetaminophen 160 mg/5 mL oral 640 mg PO Q4H PRN pain/ fever 03/31/22 Unknown History liquid acidophilus 25 million 1 tab G-tube DAILY supplemen t 03/31/22 11/02/24 History cell-pectin, citrus 100 mg tablet carbamide peroxide 6.5 % ear drops 5 drp EACH EAR ZACHERY Y PRN Ear Wax 03/31/22 Unknown History (Debrox) nystatin 100,000 unit/gram topical 1 applic topical BI D PRN redness 03/31/22 Unknown History powder ferrous sulfate 15 mg iron (75 5 ml feeding tube MOTH supplement 08/24/22 11/02/24 History mg)/mL oral syringe (ORAL USE) nutritional supplements 1 ea PO BID Check with prima ry 08/29/22 Unknown History doctor blood sugar diagnostic (True #400 ea 02/23/23 Unknown Rx Metrix Pro Test Strip) fluticasone propionate 44 2 puff inhalation BID breath ing 05/23/24 11/02/24 Rx mcg/actuation HFA aerosol inhaler #10.6 grams (Flovent HFA) levalbuterol HCl 1.25 mg/3 mL 1.25 mg (3 mL) inhalatio n Q4H PRN 05/23/24 Unknown Rx solution for nebulization sob #150 mL insulin glargine 100 unit/mL (3 20 unit (0.2 mL) subcu t QPM sugar 10/24/24 11/01/24 Rx mL) subcutaneous pen (Basaglar #15 mL KwikPen U-100 Insulin) artificial tears(hypromellose) 0.3 1 drp EACH EYE BID PRN dry eyes 11/02/24 Unknown History % eye gel (GenTeal Tears Severe) bacitracin 500 unit/gram topical 1 applic topical 4X/D AY PRN 11/02/24 Unknown History ointment ABRASIONS guaifenesin 100 mg/5 mL oral liquid 200 mg G-tube Q4H PRN thick 11/02/24 Unknown History secretions honey 80 % topical gel ([place] 1 applic topical BID NM N wound 11/02/24 Unknown History Honey) healing hydrocortisone 1 % topical cream 1 applic topical 4X/D AY PRN itching 11/02/24 Unknown History (Ala-Brown) methenamine hippurate 1 gram tablet 1 g PO BID infecti on 11/02/24 11/02/24 History rvpzmnqq-yfbs-whgudgv gluconate 9 5 ml PO DAILY supple ment 11/02/24 11/02/24 History mg iron/15 mL (15 mL) oral liquid (Centrum) potassium chloride 20 mEq/15 mL 10 meq PO DAILY supple ment 11/02/24 11/02/24 History oral liquid sodium chloride 0.9 % topical spray 1 applic topical P RN trach care 11/02/24 Unknown History trolamine salicylate 10 % topical 1 applic topical 4X/ DAY PRN muscle 11/02/24 Unknown History cream (Alcis) pain pen needle, diabetic 32 gauge x #360 ea 01/29/25 Unkno wn Rx lancets 30 gauge (Embrace Lancets) #200 ea 02/21/25 Un known Rx blood sugar diagnostic (True #150 ea 04/03/25 Unknown Rx Metrix Glucose Test Strip) lancets 33 gauge (OneTouch Delica #200 ea 04/17/25 Unk nown Rx Plus Lancet) lancing device with lancets kit #1 ea 04/17/25 Unknown Rx (InMage SystemsTouch Delica Plus Lancing Device kit) blood sugar diagnostic (OneTouch #450 ea 05/11/25 Unkn own Rx Ultra Test strips) blood-glucose meter (OneTouch #1 ea 05/11/25 Unknown R x Ultra2 Meter) OXYGEN - Supplemental ([facility] 05/21/25 Unknown History INFORMATIONAL USE ONLY) insulin aspart U-100 100 unit/mL 18 unit (0.18 mL) sub cut .qid 05/28/25 Unknown Rx (3 mL) subcutaneous pen (Novolog sugar 90 days #33 mL FlexPen U-100 Insulin aspart) cetirizine 5 mg/5 mL oral solution 10 mg PO DAILY PRN allergy symptoms 06/28/25 Unknown History nut.tx.impaired digest fxn 13 296 ea PO 4X/DAY 5 Unknown History gram-421 kcal/100 g oral powder Allergy/AdvReac Type Severity Reaction Status Date / Time linezolid Allergy Severe Other - Verified 06/28/25 22:46 seizure & coma vancomycin Allergy Severe Other - Verified 06/28/25 22:46 kidney failure meropenem (From Merrem) Allergy Intermediate Rash Verified 06/28/25 22:46 tobramycin Allergy Intermediate Other - Verified 06/28/25 22:46 turned beet red ertapenem Allergy Mild Hives Verified 06/28/25 22:46 nafcillin Allergy Mild Rash Verified 06/28/25 22:46 benzoin Allergy Unknown Rash Verified 06/28/25 22:46 milk Allergy Unknown Other Verified 06/28/25 22:46 soy Allergy Unknown Other Verified 06/28/25 22:46 polyethylene glycol 3350 AdvReac Unknown Hives Verified 06/28/25 22:46 (From Miralax) Family History Grandmother Cancer maternal Other Adopted Surgical History Presence of intrathecal baclofen pump Gastrostomy tube in place Status post Jorje fundoplication H/O spinal fusion rods to back surgery on gland under tongue eyes straightened derotatox ostomies tendonatomies Tracheostomy status Social History household members: other details: Mother and is vent dependent housing: house Smoking Status: Never smoker second hand exposure: No alcohol intake: never substance use type: does not use ROS Review of Systems ROS Unobtainable: due to endotracheal tube Objective Data Objective Data Vital Signs: Vital Signs Last response 3 Temperature 37.2 C 06/28/25 22:40 Temperature Source Axillary 06/28/25 22:00 Pulse Rate 120 H 06/28/25 22:40 Respiratory Rate 28 H 06/28/25 22:40 Respiratory Pattern Tachypnea 06/28/25 19:40 Blood Pressure 123/95 H 06/28/25 22:40 Blood Pressure Mean 104 06/28/25 22:40 Pulse Ox 100 06/28/25 22:40 Oxygen Delivery Method Mechanical Ventilator 06/28/25 22:00 Fraction of Inspired Oxygen (FIO2) 30 06/28/25 22:00 I&O: I&O Last 24 Hours 3 06/28/25 06/28/25 06/29/25 11:59 23:59 11:59 Intake Total 1100 / 1100 387.5 / 387.5 Balance 1100 / 1100 387.5 / 387.5 I&O: Total Stay 3 06/28/25 19:36 thru 06/29/25 00:01 Intake Total 1487.5 Balance 1487.5 Current Meds Ordered / Administered: Current meds ordered / Administered 3 Generic Name Dose Route Start Last Admin Trade Name Freq PRN Reason Stop Dose Admin Acetaminophen 640 mg 06/28/25 23:33 Acetaminophen 650 Mg/20 Ml Udc GT Q4H PRN PRN Pain 1-10 or Fever Albuterol Sulfate 2.5 mg 06/28/25 23:56 Albuterol 2.5 Mg/3 Ml Vial.Neb. INHALATION Q4H PRN PRN sob Ascorbic Acid 500 mg 06/29/25 10:00 Ascorbic Acid 500 Mg Tablet GT BID BECKY Bacitracin 1 applic 06/28/25 23:13 Bacitracin 15 Gm Tube TOPICAL 4X/DAY PRN ABRASIONS Baclofen 30 mg 06/29/25 06:00 Baclofen 10 Mg Tablet GT TID BECKY Budesonide 0.5 mg 06/28/25 23:45 Budesonide Respules 0.5 Mg/2 Ml Ampul.Neb. INHALATION Q12H.RT BECKY Carbamide Perox/Anhydrous Glycerin 5 drp 06/28/25 23:04 Carbamide Peroxide 15 Ml Bottle OTIC DAILY PRN PRN Ear Wax Cholecalciferol 50 mcg 06/29/25 10:00 Cholecalciferol (Vit D3) 25 Mcg Tablet (1,000 Units) GT DAILY BECKY Diazepam 7 mg 06/29/25 10:00 Diazepam 5 Mg/5 Ml Solution GT BID BECKY Diazepam 5 mg 06/29/25 14:00 Diazepam 5 Mg/5 Ml Solution GT DAILY@1400 [facility] Enoxaparin Sodium 40 mg 06/29/25 10:00 Enoxaparin 40 Mg/0.4 Ml Syringe SC DAILY BECKY Ferrous Sulfate 300 mg 07/02/25 08:00 Ferrous Sulfate 300 Mg/5 Ml Udc PO MoTh@0800 [facility] Glucagon 1 mg 06/28/25 23:04 Glucagon 1 Mg/Ml Syringe IM X1 PRN Hypoglycemia Protocol Glucagon 1 mg 06/28/25 23:09 Glucagon 1 Mg/Ml Syringe IM X1 PRN HYPOGLYCEMIA Protocol Glycerin/Hypromellose/Polyethylene 1 drp 06/28/25 23:12 Glycerin/Hypromellose/Vym109 15 Ml Bottle EACH EYE BID PRN PRN dry eyes Guaifenesin 10 ml 06/28/25 23:04 Guaifenesin 10 Ml Udc (200mg/10ml) GT Q4H PRN PRN thick secretions Hydrocortisone 1 applic 06/28/25 23:48 Hydrocortisone 2.5% Crm TOPICAL 4X/DAY PRN itching Sodium Chloride 1,000 mls @ 150 mls/hr 06/28/25 19:55 06/29/25 00:01 IV 150 mls/hr .Q6H40M BECKY Administration Dextrose 250 mls @ 0 mls/hr 06/28/25 23:04 Dextrose 10%-Water IV .Q0M PRN HYPOGLYCEMIA Protocol As Directed Dextrose 250 mls @ 0 mls/hr 06/28/25 23:09 Dextrose 10%-Water IV .Q0M PRN HYPOGLYCEMIA Protocol As Directed Meropenem 1 gm/ Sodium 100 mls @ 33 mls/hr 06/29/25 06:00 Chloride IV Q8 BECKY Sodium Chloride 250 mls @ 15 mls/hr 06/28/25 23:16 IV .[id number] PRN Saline Flush Sodium Chloride 250 mls @ 15 mls/hr 06/28/25 23:16 IV .[id number] PRN Additional IVPB Infusion Ibuprofen 400 mg 06/28/25 23:33 Ibuprofen 100 Mg/5 Ml Udc GT Q6H PRN PRN Pain Score 1-10 Insulin Glargine 20 unit 06/29/25 21:00 Insulin Glargine-Yfgn 100 Unit/Ml Pen SC QPM [facility] Insulin Human Lispro 0 unit 06/29/25 00:00 06/29/25 00:09 Insulin Lispro 100 Unit/Ml Insuln.Pen SC 2 u Q6 [facility] Administration Protocol Loratadine 10 mg 06/28/25 23:36 Loratadine 10 Mg Tablet GT DAILY PRN PRN allergy symptoms Methenamine Hippurate 1 gm 06/29/25 10:00 Methenamine Hippurate 1 Gm Tablet PO BID BECKY Morphine Sulfate 2 - 4 mg 06/28/25 23:09 Morphine 2 Mg/Ml Syringe IV Q3H PRN PRN Pain Score 6-10 Non-Formulary Medication 18 unit 06/28/25 23:15 Insulin Aspart U-100 [Novolog Flexpen U-100 Insulin] SC .qid [facility] Non-Formulary Medication 296 each 06/29/25 10:00 Nut.Tx.Impaired Digest Fxn PO 4X/DAY BECKY Non-Formulary Medication 1 applic 06/28/25 23:08 Trolamine Salicylate [Alcis] TOPICAL 4X/DAY PRN muscle pain Ondansetron HCl 4 mg 06/28/25 23:09 Ondansetron 4 Mg/2 Ml Vial IV Q8H PRN PRN NAUSEA/VOMITING Oxcarbazepine 8 mg 06/29/25 10:00 Oxcarbazepine 300 Mg/5 Ml Oral.Susp GT BID [facility] Potassium Chloride 10 meq 06/29/25 10:00 Potassium Chloride Oral Soln 20 Meq/15 Ml Udc GT DAILY [facility] Sodium Chloride 10 - 40 ml 06/28/25 23:16 0.9% Saline Lock 10 Ml Syringe IV UD PRN SALINE FLUSH Physical Exam Narrative Gen: Nonverbal on vent. Father at bedside Neck: Trach CV: S1S2 Pulm:Synced well on vent Abd: PEG tube Extrem: Contracted Lab / Micro Data 06/28/25 20:20 06/28/25 20:20 Labs: Laboratory Results - last 24 hr 06/28/25 20:20: WBC 10.1, RBC 4.19 L, Hgb 13.1, Hct 40.1, MCV 95.7, MCH 31.3, MCHC 32.7, RDW Std Deviation 44.8 H, RDW Coeff of Anne 12.8, Plt Count 261, MPV 9.8, Immature Gran % (Auto) 0.600, Neut % (Auto) 73.4 H, Lymph % (Auto) 11.8 L, Carlton % (Auto) 13.2 H, Eos % (Auto) 0.5, Baso % (Auto) 0.5, Absolute Neuts (auto) 7.4, Absolute Lymphs (auto) 1.20, Nucleated RBC % 0, Sodium 133, Potassium 4.2, Chloride 97 L, Carbon Dioxide 23.5, Anion Gap 13, BUN 4, Creatinine 0.32 L, Estim Creat Clear Calc 176.25, Est GFR (MDRD) Non-Af 139, BUN/Creatinine Ratio 12.8, Glucose 127 H, Lactic Acid 2.1 H*, Calcium 9.9, Total Bilirubin 0.24, AST 22, ALT 18, Alkaline Phosphatase 88, Total Protein 7.9, Albumin 4.3, Globulin 3.6, Albumin/Globulin Ratio 1.2 06/28/25 20:45: Urine Color Straw, Urine Clarity Cloudy, Urine pH 8.0, Ur Specific [place] 1.010, Urine Protein 15 H, Urine Glucose (UA) Normal, Urine Ketones Negative, Urine Occult Blood 50 H, Urine Nitrite Positive H, Urine Bilirubin Negative, Urine Urobilinogen Normal, Ur Leukocyte Esterase 500 H, Urine RBC 0-5 SEEN, Urine WBC >100 SEEN, Ur Squamous Epith Cells 10-25 SEEN, Urine Bacteria 4+, Urine Mucus 0 SEEN Micro: Microbiology 06/28/25 20:15 Mucosa - Nose SARS-CoV-2, Influenza & RSV (PCR) - Final Imaging Radiology Impression Abdomen/Pelvis CT 06/28/25 19:57 IMPRESSION: 1. Several bilateral subcentimeter nonobstructive renal stones. Few small stones within the urinary bladder, raising the possibility of a recently passed stone. 2. Circumferential bladder wall thickening, may reflect hypertrophy versus cystitis. 3. Nonspecific fluid throughout the colon may reflect a diarrheal illness. 4. Ancillary findings as noted above. Reading Location: [facility] Chest X-Ray 06/28/25 21:05 IMPRESSION: No acute process in the chest Reading Location: [facility] Assessment and Plan . Assessment and plan: ASSESSMENT #Sepsis #UTI #Nephrolithasis #Cerebral palsy #Chronic respiratory failure #Chronic trach Biovona #5 cuffed #PEG #H/O Seizures #DM PLAN: -Continue vent support. Back up trach at bedside. -Abx per ID - Zosyn -Follow cultures and temperature curve -Continue home medication regimen The entirety of this encounter was done via Telemedicine
[2025-06-29 00:32] LABS: Reflex Lactate? Y
[2025-06-29 04:14] LABS: Hematocrit 30.7 % (37-47); Hemoglobin 10.3 g/dL (12.0-15.0); Immature Granulocytes Count 0.050 X10^3/uL (0.0-0.0); Mean Corp Hgb Conc 33.6 g/dL (32-36); Mean Corpuscular Volume 93.0 fL (81-99); Mean Platelet Vol. 10.0 fl (6.2-12.0); NRBC Flagged by Analyzer 0 % (0-5); POSITIVE DIFFERENTIAL YES; Platelet Count 235 K/mm3 (150-450); RBC Distribution Width CV 12.9 % (11.6-14.6); RBC Distribution Width SD 43.9 fl (35.1-43.9); Red Blood Count 3.30 M/mm3 (4.2-5.4); White Blood Count 9.0 K/mm3 (4.4-11.0)
[2025-06-29 04:29] LABS: AST(SGOT) 14 U/L (<=31); Alanine Aminotransfer ALT/SGPT 13 U/L (<=34); Albumin, Serum 3.6 g/dL (3.5-5.0); Alkaline Phosphatase 67 U/L (35-104); Anion Gap 10 (5-15); BUN 5 mg/dL (4-19); BUN/Creat Ratio 19.1 RATIO (10-20); Calcium,Total 8.5 mg/dL (7.6-11.0); Carbon Dioxide 22.4 mmol/L (21.0-32.0); Chloride 103 mmol/L (98-108); Estimated Creatinine Clearance 235.00 ml/min (50-250); Globulin 2.7 g/dL (2.2-4.2); Glucose 107 mg/dL (70-99); Potassium 3.6 mmol/L (3.3-5.1)
[2025-06-29 04:49] LABS: Differential Indicated SCAN CRITERIA MET
[2025-06-29 04:51] LABS: Differential Comment SCANNED
[2025-06-29] MEDS: Piperacil/Tazobactam 3.375 GM in 0.9% Normal Saline (50mL MB+) 50 ML IV (06:38)
[2025-06-29] MEDS: Budesonide Respules 0.5 MG/2 ML AMPUL.NEB. INHALATION ×2 (07:06→19:48)
--- NOTE | 2025-06-29 07:43 | PN.HOSP_ITS ---
Reason for Visit Chief Complaint: fever Subjective Subjective 35-year-old female with history of cerebral palsy, nonverbal, tracheomalacia, trach collar on chronic ventilation was admitted with fever as well as tachycardia. Patient was reported to have passed a kidney stone on 06/26/2025. An assessment of sepsis secondary to UTI made admitted to the intensive care unit for further management Objective Data Objective Data Vital Signs: Vital Signs Temp Pulse Resp BP Pulse Ox O2 Del Method O2 Flow Rate 98.2 F 87 14 112/82 H 100 Mechanical Ventilator 3 06/29/25 02:00 06/29/25 07:12 06/29/25 07:12 06/29/25 07:00 06/29/25 07:00 06/29/25 07:12 06/29/25 07:12 FiO2 30 06/29/25 07:00 Oxygen Flow Rate (L/min) 3 Oxygen Delivery Method Mechanical Ventilator Weight: 46.085 kg Body Mass Index (BMI) 24.5 Intake & Output: Intake and Output for Last 24 Hours 06/27/25 06/28/25 06/29/25 23:59 23:59 23:59 Intake Total 1100 / 1100 1380.0 / 1380.0 Balance 1100 / 1100 1380.0 / 1380.0 Lab / Micro Data 06/29/25 04:00 06/29/25 04:00 Labs: Laboratory Results - last 24 hr 06/28/25 20:20: WBC 10.1, RBC 4.19 L, Hgb 13.1, Hct 40.1, MCV 95.7, MCH 31.3, MCHC 32.7, RDW Std Deviation 44.8 H, RDW Coeff of Anne 12.8, Plt Count 261, MPV 9.8, Immature Gran % (Auto) 0.600, Neut % (Auto) 73.4 H, Lymph % (Auto) 11.8 L, Scott % (Auto) 13.2 H, Eos % (Auto) 0.5, Baso % (Auto) 0.5, Absolute Neuts (auto) 7.4, Absolute Lymphs (auto) 1.20, Nucleated RBC % 0, Sodium 133, Potassium 4.2, Chloride 97 L, Carbon Dioxide 23.5, Anion Gap 13, BUN 4, Creatinine 0.32 L, Estim Creat Clear Calc 176.25, Est GFR (MDRD) Non-Af 139, BUN/Creatinine Ratio 12.8, Glucose 127 H, Lactic Acid 2.1 H*, Calcium 9.9, Total Bilirubin 0.24, AST 22, ALT 18, Alkaline Phosphatase 88, Total Protein 7.9, Albumin 4.3, Globulin 3.6, Albumin/Globulin Ratio 1.2 06/28/25 20:45: Urine Color Straw, Urine Clarity Cloudy, Urine pH 8.0, Ur Specific [place] 1.010, Urine Protein 15 H, Urine Glucose (UA) Normal, Urine Ketones Negative, Urine Occult Blood 50 H, Urine Nitrite Positive H, Urine Bilirubin Negative, Urine Urobilinogen Normal, Ur Leukocyte Esterase 500 H, Urine RBC 0-5 SEEN, Urine WBC >100 SEEN, Ur Squamous Epith Cells 10-25 SEEN, Urine Bacteria 4+, Urine Mucus 0 SEEN 06/29/25 00:04: POC Glucose 161 H 06/29/25 04:00: WBC 9.0, RBC 3.30 L, Hgb 10.3 L, Hct 30.7 L, MCV 93.0, MCH 31.2, MCHC 33.6, RDW Std Deviation 43.9, RDW Coeff of Anne 12.9, Plt Count 235, MPV 10.0, Immature Gran % (Auto) 0.600, Neut % (Auto) 61.9, Lymph % (Auto) 19.1, M lauren % (Auto) 16.8 H, Eos % (Auto) 1.2, Baso % (Auto) 0.4, Absolute Neuts (auto) 5.6, Absolute Lymphs (auto) 1.72, Nucleated RBC % 0, Differential Comment SCANNED, Sodium 136, Potassium 3.6, Chloride 103, Carbon Dioxide 22.4, Anion Gap 10, BUN 5, Creatinine 0.24 L, Estim Creat Clear Calc 235.00, Est GFR (MDRD) Non- Af 150, BUN/Creatinine Ratio 19.1, Glucose 107 H, Lactic Acid 1.3, Calcium 8.5, Total Bilirubin 0.21, AST 14, ALT 13, Alkaline Phosphatase 67, Total Protein 6.2, Albumin 3.6, Globulin 2.7, Albumin/Globulin Ratio 1.3 06/29/25 06:44: POC Glucose 100 Micro: Microbiology 06/28/25 20:15 Mucosa - Nose SARS-CoV-2, Influenza & RSV (PCR) - Final Radiography Diagnostic Testing: Radiology Impression Abdomen/Pelvis CT 06/28/25 19:57 IMPRESSION: 1. Several bilateral subcentimeter nonobstructive renal stones. Few small stones within the urinary bladder, raising the possibility of a recently passed stone. 2. Circumferential bladder wall thickening, may reflect hypertrophy versus cystitis. 3. Nonspecific fluid throughout the colon may reflect a diarrheal illness. 4. Ancillary findings as noted above. Reading Location: [facility] Chest X-Ray 06/28/25 21:05 IMPRESSION: No acute process in the chest Reading Location: [facility] Physical Exam Narrative General: Patient is alert nonverbal HEENT: Tracheal collar connected to the vent. Oral: Thick tongue. RESPIRATORY: Diminished to auscultation CARDIOVASCULAR: Regular S1 S2, GI: soft, normoactive bowel sounds, PEG tube in place : No Renal angle tenderness; EXTREMITIES: No edema, no clubbing, MUSCULOSKELETAL: Contracture of the lower extremities NEURO: Difficult to assess given patient underlying cerebral palsy SKIN: No Rash PSYCH; Flat affect Assessment & Plan Assessment/Plan (1) UTI (urinary tract infection): (2) Sepsis: PLAN: Plan 35-year-old female with history of cerebral palsy, nonverbal, tracheomalacia, trach collar on chronic ventilation was admitted with fever as well as tachycardia. Patient was reported to have passed a kidney stone on 06/26/2025. An assessment of sepsis secondary to UTI made admitted to the intensive care unit for further management 1. Sepsis secondary to recurrent UTI in the setting of nephrolithiasis ? . CT of the abdomen and pelvis obtained on admission demonstrated several bilateral subcentimeter nonobstructive renal stones. Few small stones within the urinary bladder, raising the possibility of a recently passed stone. Circumferential bladder wall thickening, may reflect hypertrophy versus cystitis. Nonspecific fluid throughout the colon may reflect a diarrheal illness . Urine cultures from 05/20/2025 grew ESBL E. coli. Patient started on Zosyn consult placed to ID given patient's recurrent infections 2. Spastic hemiplegic cerebral palsy ? Patient is vent dependent 3. Seizure disorder ? Stable on oxcarbazepine BID with no reports of recent seizure activity. 4. Diabetes mellitus type 2 ? Patient is on long-acting insulin did continue home regimen, also placed on Accu-Cheks AC and at bedtime with sliding scale 5. Anemia ? Secondary to chronic disorder monitoring H&H and transfuse if patient becomes symptomatic or hemoglobin falls below 7 6. History of cholelithiasis ? 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 Dr. Gay performed dilation at pylorus, biliary sphincterotomy and balloon extraction and biliary tree was swept and bile duct dilated. 7. Status post PEG tube placement ? Dietary consulted for tube feeding orders 8. DVT prophylaxis ? On enoxaparin Time spent in the patient's overall evaluation,decision-making process, review of diagnostic data, adjustment of management, discussion with other providers, nursing nursing and ancillary staff involved in patient's care documentation, 50 Minutes Charges/Coding Visit Charges Inpatient E&M: 73273 Subs Hosp L3
[2025-06-29] MEDS: DIAZEPAM 5 MG/5 ML 7 MG GT ×2 (08:39→19:55)
--- NOTE | 2025-06-29 09:13 | PCM.PN.BLA ---
Progress Note The patient was admitted to the ICU for sepsis secondary to UTI. She has a known history of cerebral palsy and is status post tracheostomy and PEG tube placement on her home ventilator. She does have a history of ESBL E. coli isolated from urine culture in May 2025. Accordingly, ID consultation is currently pending. The patient remains otherwise stable from a clinical perspective. Continue current supportive care. Blood and urine cultures are pending. The patient's mild lactic acidemia has resolved.
[2025-06-29] MEDS: Cholecalciferol (VIT D3) 25 MCG TABLET (1,000 UNITS) 50 MCG GT (10:04)
[2025-06-29] MEDS: OXCARBAZEPINE 300 MG/5 ML 480 MG GT ×2 (10:07→20:13)
[2025-06-29] MEDS: Multivitamin/Minerals/Iron (9 mg/15 ml) Liquid GT (10:09)
[2025-06-29] MEDS: [UNRECOGNIZED DRUG - OTHER] 296 ML PO ×2 (11:00→14:18)
--- NOTE | 2025-06-29 11:15 | CASEMGMT ---
HIREN WILSON Assessment: HIREN WILSON to room to meet w/pt's mother for initial transition planning/care coordination assessment. HIREN WILSON introduced self and role at [facility], pt is non-verbal. Mother voices understanding and consents to assessment. Care providers, pharmacy, and demographics verified/updated. Strata: 3 PCP: Lara Specialists: , Java Designer; Sg, ID; Héctor, Urologist; Marek, neurologist Preferred Pharmacy: [facility] [place] @ [place]. [facility] Prescription Benefit: yes LNOK: Rina, Mom; Mikey, Dad Living Arrangements: Pt lives with parents in a 1 story with a ramp to enter. ADLs: Pt requires full assistance with ADLs and IADLs. Pt receives tube feedings & bed baths at home. They straight cath pt BID. Transportation: Pt requires ambulance for transportation. Mother requests for pt to travel home on her own vent. DME: PEG tube, Tube feed pump, Kelli lift, air mattress, glucometer and sufficient supplies, trach supplies through [facility], 2 mechanical vents (one is for travale), suction machine, concentrator and portable tanks. O2 provider is [facility]. PH: [phone] (was formerly [facility]) @ 3 L/M continuously bleed-in through vent and via trach. Pt gets chucks pads, & briefs supplied through [facility]. She gets tube feeds from [facility]. Pt had been on Neocate Rell TF for years, but was just recently switched to Neocate Splash. Mom states pt is not tolerating it well & has not been able to get TF to goal rate yet since switching. Per mom, Karlee @ [facility] is working on getting approval for the Neocate Splash, stating Dr Bermudez has already sent a letter re: this. HHC/SNF: Currently gets HHC services through [facility] M/F/Wed from 8-6 and // from 9:30-4. Mom states they wish to continue these services. When HHC POLICY ADVISOR not present, parents take turns being w/pt 24/7. Pt has a hx of home IV ATB use through [facility] and the pt's mom was the teachable caregiver and was able to successfully administer the IV ATBs. ID has been consulted. If home IV ATBs are warranted again, pt's mother prefers to go through [facility] again. RANJANA HHC order placed for [facility]. Dania wa reference assistant, to send RANJANA referral via [facility]. Labs: Mom states the POLICY ADVISOR from [facility] is unable to draw blood from PICC. When pt needs lab draws, the outreach lab comes to their home. Mom would like pt to [facility] once medically ready and continue HH through [facility]. She denies having any further questions or concerns at this time. Plan: Home w/parents w/[facility]ANJANA HHC through [facility]. Follow ID [facility]. Will need transportation set up. Mom requests pt travel home on her own vent. Ervin QUINONESN RN CM
--- NOTE | 2025-06-29 11:42 | CASEMGMT ---
[facility]. Dania Us DC Planning Asst.
--- NOTE | 2025-06-29 11:49 | PCM.CONS.GEN ---
Assessment & Plan Assessment/Plan (1) Sepsis: (2) UTI (urinary tract infection): PLAN: Plan She is improving with antibiotics and supportive care CT shows no evidence of perinephric stranding or obstruction at this time. There are stones in her urinary bladder and some in the kidney She has passed several stones previously and this will be an ongoing continuing process for her Plan to avoid surgical intervention at this time Will be available if needed HPI Consult Data Date of Consult: 06/29/25 HPI Narrative Reason for Consultation: Urosepsis, stones HPI Narrative: MANDY RIVERA, is a 35 F who was admitted from the emergency room with gross hematuria, signs of infection and passing stones. This morning she is doing well appears to be back at baseline. Mom is at bedside. She had hematuria at home for approximately 3 days before passing a stone on the . She was spiking temperatures to 101. She was brought in for evaluation and management. [facility] Medical History (Updated 06/29/25 @ 11:[address] Samaria Anaya MD) Renal calculi Ventilator dependence History of cerebral palsy Multifocal pneumonia Ileus High serum vitamin B12 ESBL (extended spectrum beta-lactamase) producing bacteria infection On tube feeding diet History of Clostridium difficile infection MRSA infection Redness of skin Bladder disease History of renal disease Seizures Dietary restriction On home oxygen therapy Non-smoker Skin tag of vaginal mucosa Renal calculus or stone PICC (peripherally inserted central catheter) in place Bedbound Pancreatitis Kidney stones Ventilator dependent Urinary tract infection due to extended-spectrum beta lactamase (ESBL) producing Escherichia coli Recurrent UTI Staghorn renal calculus Chronic respiratory failure Allergic rhinitis due to other allergen Paraplegia Visual disturbance Amenorrhea Neuromuscular scoliosis Hyperglycemia Vitamin D deficiency Respiratory acidosis Thrush Lactic acid acidosis Bronchitis Irregular menstrual cycle 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 Bronchiectasis without acute exacerbation Severe sepsis Seizure Cerebral palsy Pneumonia Home Medications ?Medication ?Instructions ?Recorded ?Last Taken ?Type baclofen 20 mg tablet 30 mg G-tube TID muscle spasms 09/02/13 11/02/24 20:30 History oxcarbazepine 300 mg/5 mL (60 8 ml G-tube BID seizure 08/28/17 11/02/24 20:30 History mg/mL) oral suspension (Trileptal) diazepam 5 mg/5 mL (1 mg/mL) oral 5 mg feeding tube DAILY@1400 spasms 05/20/21 11/02/24 14:00 History solution diazepam 5 mg/5 mL (1 mg/mL) oral 7 mg feeding tube BID spasms 05/20/21 11/02/24 20:30 History solution ascorbic acid (vitamin C) 500 mg/5 500 mg feeding tube BID SUPPLEMENT 12/12/21 11/02/24 History mL oral syrup cholecalciferol (vitamin D3) 50 50 mcg feeding tube DAILY 12/12/21 11/02/24 History mcg (2,000 unit) capsule SUPPLEMENT ibuprofen 100 mg/5 mL oral 400 mg PO Q6H PRN Pain 12/12/21 02/24/22 History suspension sodium chloride 0.9 % for 3 - 6 ml inhalation Q2H PRN 12/12/21 02/23/22 History nebulization Congestion levalbuterol HCl 1.25 mg/3 mL 1.25 mg (3 mL) inhalation BID 01/16/22 11/02/24 Rx solution for nebulization BREATHING #90 mL acetaminophen 160 mg/5 mL oral 640 mg PO Q4H PRN pain/fever 03/31/22 Unknown History liquid acidophilus 25 million 1 tab G-tube DAILY supplement 03/31/22 11/02/24 History cell-pectin, citrus 100 mg tablet carbamide peroxide 6.5 % ear drops 5 drp EACH EAR DAILY PRN Ear Wax 03/31/22 Unknown History (Debrox) nystatin 100,000 unit/gram topical 1 applic topical BID PRN redness 03/31/22 Unknown History powder ferrous sulfate 15 mg iron (75 5 ml feeding tube MOTH supplement 08/24/22 11/02/24 History mg)/mL oral syringe (ORAL USE) nutritional supplements 1 ea PO BID Check with primary 08/29/22 Unknown History doctor blood sugar diagnostic (True #400 ea 02/23/23 Unknown Rx Metrix Pro Test Strip) fluticasone propionate 44 2 puff inhalation BID breathing 05/23/24 11/02/24 Rx mcg/actuation HFA aerosol inhaler #10.6 grams (Flovent HFA) levalbuterol HCl 1.25 mg/3 mL 1.25 mg (3 mL) inhalation Q4H PRN 05/23/24 Unknown Rx solution for nebulization sob #150 mL insulin glargine 100 unit/mL (3 20 unit (0.2 mL) subcut QPM sugar 10/24/24 11/01/24 Rx mL) subcutaneous pen (Basaglar #15 mL KwikPen U-100 Insulin) artificial tears(hypromellose) 0.3 1 drp EACH EYE BID PRN dry eyes 11/02/24 Unknown History % eye gel (GenTeal Tears Severe) bacitracin 500 unit/gram topical 1 applic topical 4X/DAY PRN 11/02/24 Unknown History ointment ABRASIONS guaifenesin 100 mg/5 mL oral liquid 200 mg G-tube Q4H PRN thick 11/02/24 Unknown History secretions honey 80 % topical gel ([place] 1 applic topical BID PRN wound 11/02/24 Unknown History Honey) healing hydrocortisone 1 % topical cream 1 applic topical 4X/DAY PRN itching 11/02/24 Unknown History (Ala-Brown) methenamine hippurate 1 gram tablet 1 g PO BID infection 11/02/24 11/02/24 History rlfnfrxj-bdwq-hpxdufg gluconate 9 5 ml PO DAILY supplement 11/02/24 11/02/24 History mg iron/15 mL (15 mL) oral liquid (Centrum) potassium chloride 20 mEq/15 mL 10 meq PO DAILY supplement 11/02/24 11/02/24 History oral liquid sodium chloride 0.9 % topical spray 1 applic topical PRN trach care 11/02/24 Unknown History trolamine salicylate 10 % topical 1 applic topical 4X/DAY PRN muscle 11/02/24 Unknown History cream (Alcis) pain pen needle, diabetic 32 gauge x #360 ea 01/29/25 Unknown Rx lancets 30 gauge (Embrace Lancets) #200 ea 02/21/25 Unknown Rx blood sugar diagnostic (True #150 ea 04/03/25 Unknown Rx Metrix Glucose Test Strip) lancets 33 gauge (OneTouch Delica #200 ea 04/17/25 Unknown Rx Plus Lancet) lancing device with lancets kit #1 ea 04/17/25 Unknown Rx (Carbon Design SystemsTouch Delica Plus Lancing Device kit) blood sugar diagnostic (OneTouch #450 ea 05/11/25 Unknown Rx Ultra Test strips) blood-glucose meter (OneTouch #1 ea 05/11/25 Unknown Rx Ultra2 Meter) OXYGEN - Supplemental ([facility] 05/21/25 Unknown History INFORMATIONAL USE ONLY) insulin aspart U-100 100 unit/mL 18 unit (0.18 mL) subcut .qid 05/28/25 Unknown Rx (3 mL) subcutaneous pen (Novolog sugar 90 days #33 mL FlexPen U-100 Insulin aspart) cetirizine 5 mg/5 mL oral solution 10 mg PO DAILY PRN allergy symptoms 06/28/25 Unknown History nut.tx.impaired digest fxn 13 296 ea PO 4X/DAY 06/28/25 Unknown History gram-421 kcal/100 g oral powder ventilator airway protection 06/29/25 Unknown History Allergy/AdvReac Type Severity Reaction Status Date / Time linezolid Allergy Severe Other - Verified 06/28/25 22:46 seizure & coma vancomycin Allergy Severe Other - Verified 06/28/25 22:46 kidney failure meropenem (From Merrem) Allergy Intermediate Rash Verified 06/28/25 22:46 tobramycin Allergy Intermediate Other - Verified 06/28/25 22:46 turned beet red ertapenem Allergy Mild Hives Verified 06/28/25 22:46 nafcillin Allergy Mild Rash Verified 06/28/25 22:46 benzoin Allergy Unknown Rash Verified 06/28/25 22:46 milk Allergy Unknown Other Verified 06/28/25 22:46 soy Allergy Unknown Other Verified 06/28/25 22:46 polyethylene glycol 3350 AdvReac Unknown Hives Verified 06/28/25 22:46 (From Miralax) Family History Grandmother Cancer maternal Other Adopted Surgical History Presence of intrathecal baclofen pump Gastrostomy tube in place Status post Jorje fundoplication H/O spinal fusion rods to back surgery on gland under tongue eyes straightened derotatox ostomies tendonatomies Tracheostomy status Social History household members: other details: Mother and is vent dependent housing: house Smoking Status: Never smoker second hand exposure: No alcohol intake: never substance use type: does not use ROS Review of Systems ROS Unobtainable: due to endotracheal tube Physical Exam Const alert Constitutional Narrative: Spastic cerebral palsy, at her baseline presently General Appearance: comfortable HEENT head/scalp atraumatic Neck supple Lymph Lymphatic: no lymphedema noted Chest Chest: symmetrical chest wall rise Resp Resp Narrative: She is on mechanical ventilation Cardio regular rate Cardio Narrative: Was tachycardic earlier GI soft to palpation Skin no jaundice, no petechiae and no mottling Medical Records Data Medical Nutrition Assessment Dietitian: Malnutrition Criteria Met Start: 06/29/25 09:48 Freq: Status: Active Protocol: Document 06/29/25 09:48 SLA (Rec: 06/29/25 09:48 [facility] [id number]) Nutrition Malnutrition Evidence of Yes Malnutrition Exists Malnutrition (severe Acute Illness/Injury ): Evidenced By Suboptimal Energy Intake (Severe),Weight Loss (Severe) Clinical Problem Acute Disease or Injury Related Malnutrition Etiology related to inability to tolerate current tf as ordered Signs/Symptoms as evidenced by pt only able to to tolerate ~77% of TF as ordered and has had ~ 3% unplanned wt loss x 2 wks Status Active Problem Recommendation Dietitian Rec continue TF as ordered Recommendations/ Rec consider reglan or equivalent to help w/ bowel Changes motility if feasible. Continue to follow and monitor for changes in pt nutritional status and make additional rec as indicated . Lab / Micro Data Attestation: I reviewed the patient's lab results. 06/29/25 04:00 06/29/25 04:00 Labs: Laboratory Results - last 24 hr 06/28/25 20:20: WBC 10.1, RBC 4.19 L, Hgb 13.1, Hct 40.1, MCV 95.7, MCH 31.3, MCHC 32.7, RDW Std Deviation 44.8 H, RDW Coeff of Anne 12.8, Plt Count 261, MPV 9.8, Immature Gran % (Auto) 0.600, Neut % (Auto) 73.4 H, Lymph % (Auto) 11.8 L, [place] % (Auto) 13.2 H, Eos % (Auto) 0.5, Baso % (Auto) 0.5, Absolute Neuts (auto) 7.4, Absolute Lymphs (auto) 1.20, Nucleated RBC % 0, Sodium 133, Potassium 4.2, Chloride 97 L, Carbon Dioxide 23.5, Anion Gap 13, BUN 4, Creatinine 0.32 L, Estim Creat Clear Calc 176.25, Est GFR (MDRD) Non-Af 139, BUN/Creatinine Ratio 12.8, Glucose 127 H, Lactic Acid 2.1 H*, Calcium 9.9, Total Bilirubin 0.24, AST 22, ALT 18, Alkaline Phosphatase 88, Total Protein 7.9, Albumin 4.3, Globulin 3.6, Albumin/Globulin Ratio 1.2 06/28/25 20:45: Urine Color Straw, Urine Clarity Cloudy, Urine pH 8.0, Ur Specific [place] 1.010, Urine Protein 15 H, Urine Glucose (UA) Normal, Urine Ketones Negative, Urine Occult Blood 50 H, Urine Nitrite Positive H, Urine Bilirubin Negative, Urine Urobilinogen Normal, Ur Leukocyte Esterase 500 H, Urine RBC 0-5 SEEN, Urine WBC >100 SEEN, Ur Squamous Epith Cells 10-25 SEEN, Urine Bacteria 4+, Urine Mucus 0 SEEN 06/29/25 00:04: POC Glucose 161 H 06/29/25 04:00: WBC 9.0, RBC 3.30 L, Hgb 10.3 L, Hct 30.7 L, MCV 93.0, MCH 31.2, MCHC 33.6, RDW Std Deviation 43.9, RDW Coeff of Anne 12.9, Plt Count 235, MPV 10.0, Immature Gran % (Auto) 0.600, Neut % (Auto) 61.9, Lymph % (Auto) 19.1, [place] % (Auto) 16.8 H, Eos % (Auto) 1.2, Baso % (Auto) 0.4, Absolute Neuts (auto) 5.6, Absolute Lymphs (auto) 1.72, Nucleated RBC % 0, Differential Comment SCANNED, Sodium 136, Potassium 3.6, Chloride 103, Carbon Dioxide 22.4, Anion Gap 10, BUN 5, Creatinine 0.24 L, Estim Creat Clear Calc 235.00, Est GFR (MDRD) Non-Af 150, BUN/Creatinine Ratio 19.1, Glucose 107 H, Lactic Acid 1.3, Calcium 8.5, Total Bilirubin 0.21, AST 14, ALT 13, Alkaline Phosphatase 67, Total Protein 6.2, Albumin 3.6, Globulin 2.7, Albumin/Globulin Ratio 1.3 06/29/25 06:44: POC Glucose 100 Micro: Microbiology 06/28/25 20:45 Urine Catheter - Catheter Urine Culture - Preliminary GNR lactose pediatrics hospitalist 06/28/25 20:15 Mucosa - Nose SARS-CoV-2, Influenza & RSV (PCR) - Final Imaging Radiology Impression Abdomen/Pelvis CT 06/28/25 19:57 IMPRESSION: 1. Several bilateral subcentimeter nonobstructive renal stones. Few small stones within the urinary bladder, raising the possibility of a recently passed stone. 2. Circumferential bladder wall thickening, may reflect hypertrophy versus cystitis. 3. Nonspecific fluid throughout the colon may reflect a diarrheal illness. 4. Ancillary findings as noted above. Reading Location: [id number] Chest X-Ray 06/28/25 21:05 IMPRESSION: No acute process in the chest Reading Location: [id number] Charges/Coding Multi [facility] Codes Urology Urology Charge Forwarding-multi code: Jie Doe
[2025-06-29] MEDS: Potassium Chloride Oral Soln 20 MEQ/15 ML UDC 10 MEQ GT (12:33)
--- NOTE | 2025-06-29 13:37 | PCM.CONS.GEN ---
Assessment & Plan Assessment/Plan (1) Renal calculi: (2) Sepsis: PLAN: No issues with meropenem in the past, had rash with ertapenem. Corrected allergy list. With h/o ESBL, will change zosyn to meropenem. Will follow, thank you, d/w primary team (3) UTI (urinary tract infection): HPI Consult Data Date of Consult: 06/29/25 HPI Narrative Reason for Consultation: uti HPI Narrative: MANDY RIVERA, is a 35 F with cerebral palsy, recurrent uti and stones, presented to ED 06/28 with hematuria, passed a stone, then developed fever, lethargy. Does straight cath at home twice daily. Admitted here on zosyn. ROS unobtainable due to mental status [facility] Medical History Renal calculi Ventilator dependence History of cerebral palsy Multifocal pneumonia Ileus High serum vitamin B12 ESBL (extended spectrum beta-lactamase) producing bacteria infection On tube feeding diet History of Clostridium difficile infection MRSA infection Redness of skin Bladder disease History of renal disease Seizures Dietary restriction On home oxygen therapy Non-smoker Skin tag of vaginal mucosa Renal calculus or stone PICC (peripherally inserted central catheter) in place Bedbound Pancreatitis Kidney stones Ventilator dependent Urinary tract infection due to extended-spectrum beta lactamase (ESBL) producing Escherichia coli Recurrent UTI Staghorn renal calculus Chronic respiratory failure Allergic rhinitis due to other allergen Paraplegia Visual disturbance Amenorrhea Neuromuscular scoliosis Hyperglycemia Vitamin D deficiency Respiratory acidosis Thrush Lactic acid acidosis Bronchitis Irregular menstrual cycle 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 Bronchiectasis without acute exacerbation Severe sepsis Seizure Cerebral palsy Pneumonia Home Medications ?Medication ?Instructions ?Recorded ?Last Taken ?Type baclofen 20 mg tablet 30 mg G-tube TID muscle spasms 09/02/13 11/02/24 20:30 History oxcarbazepine 300 mg/5 mL (60 8 ml G-tube BID seizure 08/28/17 11/02/24 20:30 History mg/mL) oral suspension (Trileptal) diazepam 5 mg/5 mL (1 mg/mL) oral 5 mg feeding tube DAILY@1400 spasms 05/20/21 11/02/24 14:00 History solution diazepam 5 mg/5 mL (1 mg/mL) oral 7 mg feeding tube BID spasms 05/20/21 11/02/24 20:30 History solution ascorbic acid (vitamin C) 500 mg/5 500 mg feeding tube BID SUPPLEMENT 12/12/21 11/02/24 History mL oral syrup cholecalciferol (vitamin D3) 50 50 mcg feeding tube DAILY 12/12/21 11/02/24 History mcg (2,000 unit) capsule SUPPLEMENT ibuprofen 100 mg/5 mL oral 400 mg PO Q6H PRN Pain 12/12/21 02/24/22 History suspension sodium chloride 0.9 % for 3 - 6 ml inhalation Q2H PRN 12/12/21 02/23/22 History nebulization Congestion levalbuterol HCl 1.25 mg/3 mL 1.25 mg (3 mL) inhalation BID 01/16/22 11/02/24 Rx solution for nebulization BREATHING #90 mL acetaminophen 160 mg/5 mL oral 640 mg PO Q4H PRN pain/fever 03/31/22 Unknown History liquid acidophilus 25 million 1 tab G-tube DAILY supplement 03/31/22 11/02/24 History cell-pectin, citrus 100 mg tablet carbamide peroxide 6.5 % ear drops 5 drp EACH EAR DAILY PRN Ear Wax 03/31/22 Unknown History (Debrox) nystatin 100,000 unit/gram topical 1 applic topical BID PRN redness 03/31/22 Unknown History powder ferrous sulfate 15 mg iron (75 5 ml feeding tube MOTH supplement 08/24/22 11/02/24 History mg)/mL oral syringe (ORAL USE) nutritional supplements 1 ea PO BID Check with primary 08/29/22 Unknown History doctor blood sugar diagnostic (True #400 ea 02/23/23 Unknown Rx Metrix Pro Test Strip) fluticasone propionate 44 2 puff inhalation BID breathing 05/23/24 11/02/24 Rx mcg/actuation HFA aerosol inhaler #10.6 grams (Flovent HFA) levalbuterol HCl 1.25 mg/3 mL 1.25 mg (3 mL) inhalation Q4H PRN 05/23/24 Unknown Rx solution for nebulization sob #150 mL insulin glargine 100 unit/mL (3 20 unit (0.2 mL) subcut QPM sugar 10/24/24 11/01/24 Rx mL) subcutaneous pen (Basaglar #15 mL KwikPen U-100 Insulin) artificial tears(hypromellose) 0.3 1 drp EACH EYE BID PRN dry eyes 11/02/24 Unknown History % eye gel (GenTeal Tears Severe) bacitracin 500 unit/gram topical 1 applic topical 4X/DAY PRN 11/02/24 Unknown History ointment ABRASIONS guaifenesin 100 mg/5 mL oral liquid 200 mg G-tube Q4H PRN thick 11/02/24 Unknown History secretions honey 80 % topical gel ([place] 1 applic topical BID PRN wound 11/02/24 Unknown History Honey) healing hydrocortisone 1 % topical cream 1 applic topical 4X/DAY PRN itching 11/02/24 Unknown History (Ala-Brown) methenamine hippurate 1 gram tablet 1 g PO BID infection 11/02/24 11/02/24 History okafmcpk-stwe-scvmasv gluconate 9 5 ml PO DAILY supplement 11/02/24 11/02/24 History mg iron/15 mL (15 mL) oral liquid (Centrum) potassium chloride 20 mEq/15 mL 10 meq PO DAILY supplement 11/02/24 11/02/24 History oral liquid sodium chloride 0.9 % topical spray 1 applic topical PRN trach care 11/02/24 Unknown History trolamine salicylate 10 % topical 1 applic topical 4X/DAY PRN muscle 11/02/24 Unknown History cream (Alcis) pain pen needle, diabetic 32 gauge x #360 ea 01/29/25 Unknown Rx lancets 30 gauge (Embrace Lancets) #200 ea 02/21/25 Unknown Rx blood sugar diagnostic (True #150 ea 04/03/25 Unknown Rx Metrix Glucose Test Strip) lancets 33 gauge (Urban MetricsTouch Delica #200 ea 04/17/25 Unknown Rx Plus Lancet) lancing device with lancets kit #1 ea 04/17/25 Unknown Rx (OneTouch Delica Plus Lancing Device kit) blood sugar diagnostic (OneTouch #450 ea 05/11/25 Unknown Rx Ultra Test strips) blood-glucose meter (OneTouch #1 ea 05/11/25 Unknown Rx Ultra2 Meter) OXYGEN - Supplemental ([facility] 05/21/25 Unknown History INFORMATIONAL USE ONLY) insulin aspart U-100 100 unit/mL 18 unit (0.18 mL) subcut .qid 05/28/25 Unknown Rx (3 mL) subcutaneous pen (Novolog sugar 90 days #33 mL FlexPen U-100 Insulin aspart) cetirizine 5 mg/5 mL oral solution 10 mg PO DAILY PRN allergy symptoms 06/28/25 Unknown History nut.tx.impaired digest fxn 13 296 ea PO 4X/DAY 06/28/25 Unknown History gram-421 kcal/100 g oral powder ventilator airway protection 06/29/25 Unknown History Allergy/AdvReac Type Severity Reaction Status Date / Time linezolid Allergy Severe Other - Verified 06/28/25 22:46 seizure & coma vancomycin Allergy Severe Other - Verified 06/28/25 22:46 kidney failure tobramycin Allergy Intermediate Other - Verified 06/28/25 22:46 turned beet red ertapenem Allergy Mild Hives Verified 06/28/25 22:46 nafcillin Allergy Mild Rash Verified 06/28/25 22:46 benzoin Allergy Unknown Rash Verified 06/28/25 22:46 milk Allergy Unknown Other Verified 06/28/25 22:46 soy Allergy Unknown Other Verified 06/28/25 22:46 polyethylene glycol 3350 AdvReac Unknown Hives Verified 06/28/25 22:46 (From Miralax) Family History Grandmother Cancer maternal Other Adopted Surgical History Presence of intrathecal baclofen pump Gastrostomy tube in place Status post Jorje fundoplication H/O spinal fusion rods to back surgery on gland under tongue eyes straightened derotatox ostomies tendonatomies Tracheostomy status Social History household members: other details: Mother and is vent dependent housing: house Smoking Status: Never smoker second hand exposure: No alcohol intake: never substance use type: does not use Physical Exam Const alert and no apparent distress HEENT head/scalp atraumatic Eyes PERRL and EOMs intact bilaterally Neck supple and No nodes Resp normal air movement and clear to auscultation bilaterally Cardio regular rate and regular rhythm GI soft to palpation, non-tender and non-distended Extremity General Extremity: Negative for edema Skin no rashes or lesions noted Neuro CN's II-XII intact bilaterally Medical Records Data Medical Nutrition Assessment Dietitian: Malnutrition Criteria Met Start: 06/29/25 09:48 Freq: Status: Active Protocol: Document 06/29/25 09:48 [facility] (Rec: 06/29/25 09:48 [facility] [id number]) Nutrition Malnutrition Evidence of Yes Malnutrition Exists Malnutrition (severe Acute Illness/Injury ): Evidenced By Suboptimal Energy Intake (Severe),Weight Loss (Severe) Clinical Problem Acute Disease or Injury Related Malnutrition Etiology related to inability to tolerate current tf as ordered Signs/Symptoms as evidenced by pt only able to to tolerate ~77% of TF as ordered and has had ~ 3% unplanned wt loss x 2 wks Status Active Problem Recommendation Dietitian Rec continue TF as ordered Recommendations/ Rec consider reglan or equivalent to help w/ bowel Changes motility if feasible. Continue to follow and monitor for changes in pt nutritional status and make additional rec as indicated . Lab / Micro Data Attestation: I reviewed the patient's lab results. 06/29/25 04:00 06/29/25 04:00 Labs: Laboratory Results - last 24 hr 06/28/25 20:20: WBC 10.1, RBC 4.19 L, Hgb 13.1, Hct 40.1, MCV 95.7, MCH 31.3, MCHC 32.7, RDW Std Deviation 44.8 H, RDW Coeff of Anne 12.8, Plt Count 261, MPV 9.8, Immature Gran % (Auto) 0.600, Neut % (Auto) 73.4 H, Lymph % (Auto) 11.8 L, [place] % (Auto) 13.2 H, Eos % (Auto) 0.5, Baso % (Auto) 0.5, Absolute Neuts (auto) 7.4, Absolute Lymphs (auto) 1.20, Nucleated RBC % 0, Sodium 133, Potassium 4.2, Chloride 97 L, Carbon Dioxide 23.5, Anion Gap 13, BUN 4, Creatinine 0.32 L, Estim Creat Clear Calc 176.25, Est GFR (MDRD) Non-Af 139, BUN/Creatinine Ratio 12.8, Glucose 127 H, Lactic Acid 2.1 H*, Calcium 9.9, Total Bilirubin 0.24, AST 22, ALT 18, Alkaline Phosphatase 88, Total Protein 7.9, Albumin 4.3, Globulin 3.6, Albumin/Globulin Ratio 1.2 06/28/25 20:45: Urine Color Straw, Urine Clarity Cloudy, Urine pH 8.0, Ur Specific [place] 1.010, Urine Protein 15 H, Urine Glucose (UA) Normal, Urine Ketones Negative, Urine Occult Blood 50 H, Urine Nitrite Positive H, Urine Bilirubin Negative, Urine Urobilinogen Normal, Ur Leukocyte Esterase 500 H, Urine RBC 0-5 SEEN, Urine WBC >100 SEEN, Ur Squamous Epith Cells 10-25 SEEN, Urine Bacteria 4+, Urine Mucus 0 SEEN 06/29/25 00:04: POC Glucose 161 H 06/29/25 04:00: WBC 9.0, RBC 3.30 L, Hgb 10.3 L, Hct 30.7 L, MCV 93.0, MCH 31.2, MCHC 33.6, RDW Std Deviation 43.9, RDW Coeff of Anne 12.9, Plt Count 235, MPV 10.0, Immature Gran % (Auto) 0.600, Neut % (Auto) 61.9, Lymph % (Auto) 19.1, [place] % (Auto) 16.8 H, Eos % (Auto) 1.2, Baso % (Auto) 0.4, Absolute Neuts (auto) 5.6, Absolute Lymphs (auto) 1.72, Nucleated RBC % 0, Differential Comment SCANNED, Sodium 136, Potassium 3.6, Chloride 103, Carbon Dioxide 22.4, Anion Gap 10, BUN 5, Creatinine 0.24 L, Estim Creat Clear Calc 235.00, Est GFR (MDRD) Non-Af 150, BUN/Creatinine Ratio 19.1, Glucose 107 H, Lactic Acid 1.3, Calcium 8.5, Total Bilirubin 0.21, AST 14, ALT 13, Alkaline Phosphatase 67, Total Protein 6.2, Albumin 3.6, Globulin 2.7, Albumin/Globulin Ratio 1.3 06/29/25 06:44: POC Glucose 100 06/29/25 12:28: POC Glucose 189 H Micro: Microbiology 06/28/25 20:45 Urine Catheter - Catheter Urine Culture - Preliminary GNR lactose kapok machine operator 06/28/25 20:15 Mucosa - Nose SARS-CoV-2, Influenza & RSV (PCR) - Final Imaging Radiology Impression Abdomen/Pelvis CT 06/28/25 19:57 IMPRESSION: 1. Several bilateral subcentimeter nonobstructive renal stones. Few small stones within the urinary bladder, raising the possibility of a recently passed stone. 2. Circumferential bladder wall thickening, may reflect hypertrophy versus cystitis. 3. Nonspecific fluid throughout the colon may reflect a diarrheal illness. 4. Ancillary findings as noted above. Reading Location: [facility] Chest X-Ray 06/28/25 21:05 IMPRESSION: No acute process in the chest Reading Location: [facility]
--- NOTE | 2025-06-29 13:47 | CHAPLAIN ---
Type of Pastoral Visit _x__ Initial Visit ___ Follow-up Visit ___ On-call Visit ___ General Patient Visit ___ Spiritual Assessment ___ Family Conference ___ Bereavement ___ Rapid Response ___ Code Blue ___ Other (describe below) Pastoral Care Referral From ___ Patient _x__ Family ___ Nurse ___ Physician ___ Human Resources Team Member ___ Surplus Property Disposal Agent ___ Other (describe below) Sacrament/Intervention _x__ Active listening ___ Anointing ___ Samaritan ___ Bereavement ___ Communion ___ Jolie exploration ___ ___ Life review _x__ Prayer ___ Reconciliation ___ Sacrament of Sick _x__ Supportive presence ___ Wedding ___ Other (describe below) Pastoral Comments Conversation with mother of patient; pt is watching the Ipad screen and smiles often; pt is nonverbal but mother is very in tune with the condition and reports thankfulness for the prayers and attention
[2025-06-29] MEDS: Lactobacillis Acidophilus 1 CAP GT (14:17)
[2025-06-29] MEDS: DIAZEPAM 5 MG/5 ML GT (14:17)
[2025-06-29] MEDS: Meropenem 1 GM in 0.9% Normal Saline (100mL MB+) 100 ML IV ×2 (14:32→21:53)
[2025-06-29] MEDS: 0.9% Saline Lock 10 ML Syringe IV (14:32)
--- NOTE | 2025-06-29 16:42 | PCM.RX.CS ---
Consult Antibiotic Management Pharmacy has been consulted to manage selected antibiotic: Vancomycin Type of Intervention Type of Consult: New start Suspected Infection Suspected Infection: Sepsis Labs Labs: Sodium 136 mmol/L (133-145) 06/29/25 04:00 Potassium 3.6 mmol/L (3.3-5.1) 06/29/25 04:00 Chloride 103 mmol/L (98-108) 06/29/25 04:00 Carbon Dioxide 22.4 mmol/L (21.0-32.0) 06/29/25 04:00 Anion Gap 10 (5-15) 06/29/25 04:00 BUN 5 mg/dL (4-19) 06/29/25 04:00 Creatinine 0.24 mg/dL (0.70-1.20) L 06/29/25 04:00 Est GFR (MDRD) Non-Af 150 (>60) 06/29/25 04:00 BUN/Creatinine Ratio 19.1 RATIO (10-20) 06/29/25 04:00 Glucose 107 mg/dL (70-99) H 06/29/25 04:00 Microbiology Microbiology: Microbiology 06/28/25 21:20 Blood Culture (Wb) - Left Hand Blood Culture - Preliminary 06/28/25 20:45 Urine Catheter - Catheter Urine Culture - Preliminary GNR 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 NEW START IV VANCOMYCIN Consulting Physician: Dr. Dupree Indication: Sepsis Goal Trough: 10-15 SrCr: 0.24 ml/min CrCl: 235 Comments: patient height and weight: 54 and 46 kg Vancomycin Dose: 1000 mg Q12H with first dose 06/30 @ 0400 Pending Level: 07/01/25 @ 0330 Date/Time Labs Ordered Labs to be done on [date and time ordered]: 07/01/25 @ 0336
--- NOTE | 2025-06-29 17:25 | NURSING ---
RN verified with Dr. Dupree, patient can use neocate iesha as she did prior to admission due to GI issues with neocate splash. RN spoke with pharmacy regarding change in tube feed. Formula can given to pharmacy and pharmacy notified of patient being transferred to PCU. RN also verified allergy to vancomycin with patients mother Rina. Rina reports allergy from 2011 due to it being ran too fast but states she has received it multiple times since this event with no issues. RN relayed message to pharmacy as well.
[2025-06-29] MEDS: Vancomycin HCl 1,000 MG in 0.9% Normal Saline (250mL Bag) 250 ML 250 MG IV (17:53)
[2025-06-29] MEDS: Albuterol 2.5 MG/3 ML VIAL.NEB. INHALATION (19:48)
[2025-06-29] MEDS: Insulin Glargine-YFGN 100 UNIT/ML Pen 20 UNIT SC (20:01)
[2025-06-29] MEDS: Acetaminophen 650 MG/20 ML UDC 640 MG GT (20:12)
[2025-06-29] MEDS: NUT TX IMPAIRED DIGEST FXN 160 GM GT (22:01)
[2025-06-30] VITALS (7 sets, daily range): BP systolic 116–126; BP diastolic 76–84; PULSE 65–91; RESP 14–23; TEMP 36.3–36.8; O2SAT 99–100; BMI 25.7
[2025-06-30] MEDS: Vancomycin HCl 1,000 MG in 0.9% Normal Saline (250mL Bag) 250 ML 250 MG IV (03:23)
[2025-06-30] MEDS: Meropenem 1 GM in 0.9% Normal Saline (100mL MB+) 100 ML IV ×3 (04:50→21:46)
[2025-06-30] MEDS: 0.9% Normal Saline (1000mL) 1,000 ML 150 ML IV ×2 (05:16→11:41)
[2025-06-30] MEDS: Budesonide Respules 0.5 MG/2 ML AMPUL.NEB. INHALATION ×2 (06:44→19:23)
[2025-06-30] MEDS: Albuterol 2.5 MG/3 ML VIAL.NEB. INHALATION ×2 (06:44→19:23)
[2025-06-30] MEDS: DIAZEPAM 5 MG/5 ML 7 MG GT ×2 (08:28→20:22)
[2025-06-30] MEDS: OXCARBAZEPINE 300 MG/5 ML 480 MG GT ×2 (08:29→20:23)
[2025-06-30 09:23] LABS: Hematocrit 29.8 % (37-47); Hemoglobin 9.7 g/dL (12.0-15.0); Immature Granulocytes Count 0.040 X10^3/uL (0.0-0.0); Mean Corp Hgb Conc 32.6 g/dL (32-36); Mean Corpuscular Volume 94.6 fL (81-99); Mean Platelet Vol. 9.8 fl (6.2-12.0); NRBC Flagged by Analyzer 0 % (0-5); Platelet Count 236 K/mm3 (150-450); RBC Distribution Width CV 13.2 % (11.6-14.6); RBC Distribution Width SD 45.4 fl (35.1-43.9); Red Blood Count 3.15 M/mm3 (4.2-5.4); White Blood Count 5.6 K/mm3 (4.4-11.0)
[2025-06-30 09:43] LABS: Anion Gap 10 (5-15); BUN 2 mg/dL (4-19); Calcium,Total 8.5 mg/dL (7.6-11.0); Carbon Dioxide 20.2 mmol/L (21.0-32.0); Chloride 109 mmol/L (98-108); Estimated Creatinine Clearance 256.37 ml/min (50-250); Glucose 124 mg/dL (70-99); Magnesium 2.0 mg/dL (1.5-2.2); Potassium 3.9 mmol/L (3.3-5.1)
[2025-06-30 10:04] LABS: BUN/Creat Ratio 10.6 RATIO (10-20)
[2025-06-30] MEDS: Cholecalciferol (VIT D3) 25 MCG TABLET (1,000 UNITS) 50 MCG GT (10:08)
[2025-06-30] MEDS: Multivitamin/Minerals/Iron (9 mg/15 ml) Liquid GT (10:08)
[2025-06-30] MEDS: NUT TX IMPAIRED DIGEST FXN 160 GM GT ×3 (10:10→17:14)
--- NOTE | 2025-06-30 12:14 | PCM.PN.TICU ---
Objective Data Objective Data Vital Signs: Vital Signs Last response Temperature 36.7 C 06/30/25 10:10 Temperature Source Temporal 06/30/25 10:10 Pulse Rate 65 06/30/25 09:00 Pulse Strength Normal (2+) 06/30/25 08:45 Respiratory Rate 21 H 06/30/25 09:00 Respiratory Effort Normal, Non-Labored, Mechanically Ventilated 06/30/25 08:45 Respiratory Depth Normal 06/30/25 08:45 Respiratory Pattern Normal 06/30/25 08:45 Blood Pressure 116/84 H 06/30/25 09:00 Blood Pressure Mean 94 06/30/25 09:00 Blood Pressure Source Monitor 06/30/25 03:15 Blood Pressure Position Semi-Fowlers 06/30/25 03:15 Blood Pressure Location Right Arm 06/30/25 03:15 Pulse Ox 99 06/30/25 09:00 Oxygen Delivery Method Mechanical Ventilator 06/30/25 09:00 Oxygen Flow Rate (L/min) 3 06/30/25 09:00 Fraction of Inspired Oxygen (FIO2) 30 06/29/25 07:00 I&O: I&O Last 24 Hours 06/29/25 06/30/25 06/30/25 23:59 11:59 23:59 Intake Total 2370 / 3800.0 2532.5 / 2532.5 Balance 2370 / 3400.0 2532.5 / 2532.5 I&O: Total Stay 06/28/25 19:36 thru 06/30/25 11:41 Intake Total 7432.5 Output Total 400 Balance 7032.5 Current Meds Ordered / Administered: Current meds ordered / Administered Generic Name Dose Route Start Last Admin Trade Name Freq PRN Reason Stop Dose Admin Acetaminophen 640 mg 06/28/25 23:33 06/29/25 20:12 Acetaminophen 650 Mg/20 Ml Udc GT 640 mg Q4H PRN PRN Administration Pain 1-10 or Fever Albuterol Sulfate 2.5 mg 06/28/25 23:56 06/30/25 06:44 Albuterol 2.5 Mg/3 Ml Vial.Neb. INHALATION 2.5 mg Q4H PRN PRN Administration sob Ascorbic Acid 500 mg 06/29/25 10:00 06/30/25 10:08 Ascorbic Acid 500 Mg Tablet GT 500 mg 1000,2000 BECKY Administration Bacitracin 1 applic 10/16/25 23:13 Bacitracin 15 Gm Tube TOPICAL 4X/DAY PRN ABRASIONS Baclofen 30 mg 06/29/25 14:00 06/30/25 08:28 Baclofen 10 Mg Tablet GT 30 mg 0830,1399,1999 [facility] Administration Budesonide 0.5 mg 06/28/25 23:45 06/30/25 06:44 Budesonide Respules 0.5 Mg/2 Ml Ampul.Neb. INHALATION 0.5 mg Q12H.RT [facility] Administration Carbamide Perox/Anhydrous Glycerin 5 drp 06/28/25 23:04 Carbamide Peroxide 15 Ml Bottle OTIC DAILY PRN PRN Ear Wax Cholecalciferol 50 mcg 06/29/25 10:00 06/30/25 10:08 Cholecalciferol (Vit D3) 25 Mcg Tablet (1,000 Units) GT 50 mcg DAILY [facility] Administration Diazepam 5 mg 06/29/25 14:00 06/29/25 14:17 Diazepam 5 Mg/5 Ml Solution GT 5 mg DAILY@1400 [facility] Administration Diazepam 7 mg 06/29/25 20:00 06/30/25 08:28 Diazepam 5 Mg/5 Ml Solution GT 7 mg 08 [facility] Administration Enoxaparin Sodium 40 mg 06/29/25 10:00 06/30/25 10:08 Enoxaparin 40 Mg/0.4 Ml Syringe SC 40 mg DAILY [facility] Administration Enteral Nutritional Formula 160 gm 06/29/25 22:00 06/30/25 10:10 Nut.Tx.Impaired Digest Fxn 400 Gm Powder GT 160 gm 4X/DAY [facility] Administration Ferrous Sulfate 300 mg 07/02/25 10:00 Ferrous Sulfate 300 Mg/5 Ml Udc PO MoTh@1000 [facility] Glucagon 1 mg 06/28/25 23:04 Glucagon 1 Mg/Ml Syringe IM X1 PRN Hypoglycemia Protocol Glucagon 1 mg 06/28/25 23:09 Glucagon 1 Mg/Ml Syringe IM X1 PRN HYPOGLYCEMIA Protocol Glycerin/Hypromellose/Polyethylene 1 drp 06/28/25 23:12 Glycerin/Hypromellose/Qnm795 15 Ml Bottle EACH EYE BID PRN PRN dry eyes Guaifenesin 10 ml 06/28/25 23:04 Guaifenesin 10 Ml Udc (200mg/10ml) GT Q4H PRN PRN thick secretions Hydrocortisone 1 applic 06/28/25 23:48 Hydrocortisone 2.5% Crm TOPICAL 4X/DAY PRN itching Sodium Chloride 1,000 mls @ 150 mls/hr 06/28/25 19:55 06/30/25 11:41 IV 150 mls/hr .Q6H40M BECKY Administration Dextrose 250 mls @ 0 mls/hr 06/28/25 23:04 Dextrose 10%-Water IV .Q0M PRN HYPOGLYCEMIA Protocol As Directed Dextrose 250 mls @ 0 mls/hr 06/28/25 23:09 Dextrose 10%-Water IV .Q0M PRN HYPOGLYCEMIA Protocol As Directed Sodium Chloride 250 mls @ 15 mls/hr 06/28/25 23:16 IV .[id number] PRN Saline Flush Sodium Chloride 250 mls @ 15 mls/hr 06/28/25 23:16 IV .[id number] PRN Additional IVPB Infusion Meropenem 1 gm/ Sodium 100 mls @ 33 mls/hr 06/29/25 14:00 06/30/25 07:52 Chloride IV Infused Q8 BECKY Infusion Vancomycin IV-PHARMACY TO DOSE 500 mls @ 250 mls/hr 06/29/25 16:09 1 each/ Sodium Chloride IV X1 PRN Rx to Dose Protocol Vancomycin HCl 1,000 mg/ 270 mls @ 250 mls/hr 06/30/25 04:00 06/30/25 05:15 Sodium Chloride IV Infused Q12H BECKY Infusion Ibuprofen 400 mg 06/28/25 23:33 Ibuprofen 100 Mg/5 Ml Udc GT Q6H PRN PRN Pain Score 1-10 Insulin Glargine 20 unit 06/29/25 21:00 06/29/25 20:01 Insulin Glargine-Yfgn 100 Unit/Ml Pen SC 20 unit QPM BECKY Administration Insulin Human Lispro 0 unit 06/29/25 00:00 06/30/25 11:46 Insulin Lispro 100 Unit/Ml Insuln.Pen SC Not Given Q6 [facility] Protocol Loratadine 10 mg 06/28/25 23:36 Loratadine 10 Mg Tablet GT DAILY PRN PRN allergy symptoms Methenamine Hippurate 1 gm 06/29/25 10:00 06/30/25 10:08 Methenamine Hippurate 1 Gm Tablet PO 1 gm 1000,2000 BECKY Administration Metoclopramide HCl 5 mg 06/29/25 11:00 06/30/25 11:01 Metoclopramide 5 Mg Tablet GT Not Given TIDAC [facility] Morphine Sulfate 2 - 4 mg 06/28/25 23:09 Morphine 2 Mg/Ml Syringe IV Q3H PRN PRN Pain Score 6-10 Ondansetron HCl 4 mg 06/28/25 23:09 Ondansetron 4 Mg/2 Ml Vial IV Q8H PRN PRN NAUSEA/VOMITING Oxcarbazepine 480 mg 06/29/25 09:30 06/30/25 08:29 Oxcarbazepine 300 Mg/5 Ml Oral.Susp GT 480 mg 0830,1999 [facility] Administration Potassium Chloride 10 meq 06/29/25 12:00 06/29/25 12:33 Potassium Chloride Oral Soln 20 Meq/15 Ml Udc GT 10 meq 1200 BECKY Administration Sodium Chloride 10 - 40 ml 06/28/25 23:16 06/29/25 14:32 0.9% Saline Lock 10 Ml Syringe IV 10 ml UD PRN Administration SALINE FLUSH Vancomycin Protocol 1 lab 07/01/25 02:30 Vancomycin Trough/Random Due MC 07/01/25 04:30 DAILY [facility] Medical Records Data Medical Nutrition Assessment Dietitian: Malnutrition Criteria Met Start: 06/29/25 09:48 Freq: Status: Active Protocol: Document 06/30/25 08:52 SLA (Rec: 06/30/25 08:52 SLA ..25.7) Nutrition Malnutrition Evidence of Yes Malnutrition Exists Malnutrition (severe Acute Illness/Injury ): Evidenced By Suboptimal Energy Intake (Severe),Weight Loss (Severe) Clinical Problem Acute Disease or Injury Related Malnutrition Etiology related to inability to tolerate current tf as ordered - now receiving neocate rell that she has been on for many years Signs/Symptoms as evidenced by pt only able to to tolerate ~77% of TF as ordered and has had ~ 3% 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 Continue to follow and monitor for changes in pt nutritional status and make additional rec as indicated . Lab / Micro Data Attestation: I reviewed the patient's lab results. 06/30/25 09:16 06/30/25 09:16 Labs: Laboratory Results - last 24 hr 06/29/25 12:28: POC Glucose 189 H 06/29/25 18:03: POC Glucose 126 H 06/29/25 19:58: POC Glucose 130 H 06/29/25 23:10: POC Glucose 104 06/30/25 06:45: POC Glucose 97 06/30/25 09:16: WBC 5.6, RBC 3.15 L, Hgb 9.7 L, Hct 29.8 L, MCV 94.6, MCH 30.8, MCHC 32.6, RDW Std Deviation 45.4 H, RDW Coeff of Anne 13.2, Plt Count 236, MPV 9.8, Immature Gran % (Auto) 0.700, Neut % (Auto) 68.6, Lymph % (Auto) 19.1, [place] % (Auto) 8.9, Eos % (Auto) 2.0, Baso % (Auto) 0.7, Absolute Neuts (auto) 3.9, Absolute Lymphs (auto) 1.08, Nucleated RBC % 0, Sodium 139, Potassium 3.9, Chloride 109 H, Carbon Dioxide 20.2 L, Anion Gap 10, BUN 2 L, Creatinine 0.22 L, Estim Creat Clear Calc 256.37 H, Est GFR (MDRD) Non-Af 153, BUN/Creatinine Ratio 10.6, Glucose 124 H, Calcium 8.5, Phosphorus 2.1 L, Magnesium 2.0 06/30/25 11:43: POC Glucose 149 H Micro: Microbiology 06/28/25 21:20 Blood Culture (Wb) - Left Hand Bacteria Detection (PCR) - Final Coag Negative Staph 06/28/25 21:20 Blood Culture (Wb) - Left Hand Blood Culture - Preliminary Coag Negative Staph 06/28/25 20:45 Urine Catheter - Catheter Urine Culture - Final ESBL Escherichia coli Assessment and Plan . Assessment and plan: Assessment and Plan ASSESSMENT #Sepsis #UTI #Nephrolithasis #Cerebral palsy #Chronic respiratory failure #Chronic trach Biovona #5 cuffed #PEG #H/O Seizures #DM PLAN: -Continue vent support- on home vent. Back up trach at bedside. -Abx per ID - Zosyn -Follow cultures and temperature curve -Continue home medication regimen Critical Care Time: 50 minutes The entirety of this encounter was done via Telemedicine Physical Exam Const General Appearance: intubated and patient mechanically ventilated Exam Limitations: altered mental status and behavioral limitations Eyes PERRL Neck full ROM General: tracheostomy present Subjective Subjective Events reviewed, course discussed with parents at bedside. She has done well from respiratory standpoint, remains less responsive than baseline per mom.
[2025-06-30] MEDS: Potassium Chloride Oral Soln 20 MEQ/15 ML UDC 10 MEQ GT (12:39)
[2025-06-30] MEDS: Lactobacillis Acidophilus 1 CAP GT (14:15)
[2025-06-30] MEDS: DIAZEPAM 5 MG/5 ML GT (14:20)
[2025-06-30] MEDS: Acetaminophen 650 MG/20 ML UDC 640 MG GT (14:21)
--- NOTE | 2025-06-30 14:24 | CASEMGMT ---
RN KATIE had note to follow up with pt mom in regards to transportation home. Pt mom states she does want to ride with pt when physicians transports home. Mom also confirmed no steps to enter into home.
--- NOTE | 2025-06-30 16:19 | PCM.PN.HOSP ---
Reason for Visit Chief Complaint: fever Subjective Subjective Patient evaluated with mom at bedside, patient seemed to be having headache and was a little bit tachycardic, she was given ibuprofen and heart rate improved and patient overall seemed to improve Objective Data Objective Data Vital Signs: Vital Signs Temp Pulse Resp BP Pulse Ox O2 Del Method O2 Flow Rate 98.1 F 65 21 H 116/84 H 99 Mechanical Ventilator 3 06/30/25 10:10 06/30/25 09:00 06/30/25 09:00 06/30/25 09:00 06/30/25 09:00 06/30/25 09:00 06/30/25 09:00 FiO2 30 06/29/25 07:00 Oxygen Flow Rate (L/min) 3 Oxygen Delivery Method Mechanical Ventilator Weight: 48.4 kg Body Mass Index (BMI) 25.7 Intake & Output: Intake and Output for Last 24 Hours 06/28/25 06/29/25 06/30/25 23:59 23:59 23:59 Intake Total 1100 / 1100 3800.0 / 3800.0 3042.5 / 3042.5 Output Total 400 / 400 Balance 1100 / 1100 3400.0 / 3400.0 3042.5 / 3042.5 Medical Nutrition Assessment Dietitian: Malnutrition Criteria Met Start: 06/29/25 09:48 Freq: Status: Active Protocol: Document 06/30/25 08:52 SLA (Rec: 06/30/25 08:52 SLA 10...7) Nutrition Malnutrition Evidence of Yes Malnutrition Exists Malnutrition (severe Acute Illness/Injury ): Evidenced By Suboptimal Energy Intake (Severe),Weight Loss (Severe) Clinical Problem Acute Disease or Injury Related Malnutrition Etiology related to inability to tolerate current tf as ordered - now receiving neocate rell that she has been on for many years Signs/Symptoms as evidenced by pt only able to to tolerate ~77% of TF as ordered and has 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 Continue to follow and monitor for changes in pt nutritional status and make additional rec as indicated . Lab / Micro Data 06/30/25 09:16 06/30/25 09:16 Labs: Laboratory Results - last 24 hr 06/29/25 18:03: POC Glucose 126 H 06/29/25 19:58: POC Glucose 130 H 06/29/25 23:10: POC Glucose 104 06/30/25 06:45: POC Glucose 97 06/30/25 09:16: WBC 5.6, RBC 3.15 L, Hgb 9.7 L, Hct 29.8 L, MCV 94.6, MCH 30.8, MCHC 32.6, RDW Std Deviation 45.4 H, RDW Coeff of Anne 13.2, Plt Count 236, MPV 9.8, Immature Gran % (Auto) 0.700, Neut % (Auto) 68.6, Lymph % (Auto) 19.1, Finney % (Auto) 8.9, Eos % (Auto) 2.0, Baso % (Auto) 0.7, Absolute Neuts (auto) 3.9, Absolute Lymphs (auto) 1.08, Nucleated RBC % 0, Sodium 139, Potassium 3.9, Chloride 109 H, Carbon Dioxide 20.2 L, Anion Gap 10, BUN 2 L, Creatinine 0.22 L, Estim Creat Clear Calc 256.37 H, Est GFR (MDRD) Non-Af 153, BUN/Creatinine Ratio 10.6, Glucose 124 H, Calcium 8.5, Phosphorus 2.1 L, Magnesium 2.0 06/30/25 11:43: POC Glucose 149 H Micro: Microbiology 06/28/25 21:20 Blood Culture (Wb) - Left Hand Bacteria Detection (PCR) - Final Coag Negative Staph 06/28/25 21:20 Blood Culture (Wb) - Left Hand Blood Culture - Preliminary Coag Negative Staph 06/28/25 20:45 Urine Catheter - Catheter Urine Culture - Final ESBL Escherichia coli 06/28/25 20:15 Mucosa - Nose SARS-CoV-2, Influenza & RSV (PCR) - Final Physical Exam Narrative General: Awake, alert, unable to answer orientation questions HEENT: Atraumatic, normocephalic Eyes: Anicteric Neck: Supple Respiratory: No overt wheezes or rhonchi, normal respiratory effort Cardiovascular: Regular rate and rhythm GI: Soft, nondistended Extremities: No significant peripheral edema Musculoskeletal: Patient with chronic contractures and scoliosis Neuro: Patient with CP and baseline neurological changes Skin: No rashes appreciated Psych: Unable to cooperate given mental status Assessment & Plan Assessment/Plan (1) Sepsis: (2) UTI (urinary tract infection): (3) Infection due to ESBL-producing Escherichia coli: PLAN: Plan # Sepsis secondary to 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 -ID consulted -Will continue Merrem at this time given sensitivity data - Likely DC early in the week with final antibiotic plan - Blood cultures growing 1 out of 2 coag negative staph, suspect contaminant, vancomycin discontinued # Kidney stones - Patient with stones noted in her kidney and bladder with no evidence of obstruction at this time - Urology was consulted and evaluated, patient improving with antibiotics and supportive care so no acute intervention recommended at this time #Type 2 diabetes mellitus -Glucose checks and sliding scale insulin # Cerebral palsy, chronic tracheostomy, PEG tube -Supportive care, continue home tube feeds and ventilation -Continue home baclofen and diazepam #Seizure disorder -Presently maintained on Trileptal -Continue home regimen # Chronic hypoxic respiratory failure -Continue inhalers -Continue home ventilation #DVT ppx: SCDs Shanice Ray MD Charges/Coding Visit Charges Inpatient E&M: 37102 Subs Hosp L2
[2025-06-30] MEDS: Insulin Glargine-YFGN 100 UNIT/ML Pen 20 UNIT SC (20:19)
[2025-07-01] VITALS (7 sets, daily range): BP systolic 124–140; BP diastolic 69–91; PULSE 65–99; RESP 16–24; TEMP 36.6–37; O2SAT 99–100; BMI 25.4
[2025-07-01] MEDS: Meropenem 1 GM in 0.9% Normal Saline (100mL MB+) 100 ML IV ×3 (05:59→22:46)
[2025-07-01] MEDS: Albuterol 2.5 MG/3 ML VIAL.NEB. INHALATION ×2 (06:56→19:48)
[2025-07-01] MEDS: Budesonide Respules 0.5 MG/2 ML AMPUL.NEB. INHALATION ×2 (06:57→19:48)
[2025-07-01] MEDS: NUT TX IMPAIRED DIGEST FXN 160 GM GT ×4 (08:00→17:58)
[2025-07-01] MEDS: OXCARBAZEPINE 300 MG/5 ML 480 MG GT ×2 (08:48→20:35)
[2025-07-01] MEDS: DIAZEPAM 5 MG/5 ML 7 MG GT ×2 (08:49→20:35)
[2025-07-01] MEDS: Multivitamin/Minerals/Iron (9 mg/15 ml) Liquid GT (10:14)
[2025-07-01] MEDS: Cholecalciferol (VIT D3) 25 MCG TABLET (1,000 UNITS) 50 MCG GT (10:14)
[2025-07-01] MEDS: Potassium Chloride Oral Soln 20 MEQ/15 ML UDC 10 MEQ GT (12:14)
[2025-07-01] MEDS: Lactobacillis Acidophilus 1 CAP GT (14:20)
[2025-07-01] MEDS: DIAZEPAM 5 MG/5 ML GT (14:20)
--- NOTE | 2025-07-01 15:20 | PN.HOSP_ITS ---
Reason for Visit Chief Complaint: fever Subjective Subjective Doing better today, mother reports she seems to be feeling better, did have a bowel movement that was normal for her which seemed to lead in part to the improvement Objective Data Objective Data Vital Signs: Vital Signs Temp Pulse Resp BP Pulse Ox O2 Del Method O2 Flow Rate 98.1 F 99 24 H 140/91 H 100 Mechanical Ventilator 3 07/01/25 11:48 07/01/25 11:48 07/01/25 11:48 07/01/25 11:48 07/01/25 11:48 07/01/25 11:48 07/01/25 11:48 FiO2 30 06/29/25 07:00 Oxygen Flow Rate (L/min) 3 Oxygen Delivery Method Mechanical Ventilator Weight: 48 kg Body Mass Index (BMI) 25.4 Intake & Output: Intake and Output for Last 24 Hours 06/29/25 06/30/25 07/01/25 23:59 23:59 23:59 Intake Total 3800.0 / 3800.0 3432.5 / 3432.5 636.35 / 636.35 Output Total 400 / 400 Balance 3400.0 / 3400.0 3432.5 / 3432.5 636.35 / 636.35 Medical Nutrition Assessment Dietitian: Malnutrition Criteria Met Start: 06/29/25 09:48 Freq: Status: Active Protocol: Document 06/30/25 08:52 SLA (Rec: 06/30/25 08:52 SLA 10..25.7) Nutrition Malnutrition Evidence of Yes Malnutrition Exists Malnutrition (severe Acute Illness/Injury ): Evidenced By Suboptimal Energy Intake (Severe),Weight Loss (Severe) Clinical Problem Acute Disease or Injury Related Malnutrition Etiology related to inability to tolerate current tf as ordered - now receiving neocate iesha that she has been on for many years Signs/Symptoms as evidenced by pt only able to to tolerate ~77% of TF as ordered and 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 Continue to follow and monitor for changes in pt nutritional status and make additional rec as indicated . Lab / Micro Data 06/30/25 09:16 06/30/25 09:16 Labs: Laboratory Results - last 24 hr 06/30/25 17:06: POC Glucose 188 H 06/30/25 20:17: POC Glucose 169 H 07/01/25 06:04: POC Glucose 97 07/01/25 11:43: POC Glucose 185 H Micro: Microbiology 06/28/25 20:20 Blood Culture (Wb) - Left Hand Blood Culture - Preliminary No growth in 48 hours. 06/28/25 21:20 Blood Culture (Wb) - Left Hand Bacteria Detection (PCR) - Final Coag Negative Staph 06/28/25 21:20 Blood Culture (Wb) - Left Hand Blood Culture - Preliminary Coag Negative Staph 06/28/25 20:45 Urine Catheter - Catheter Urine Culture - Final ESBL Escherichia coli 06/28/25 20:15 Mucosa - Nose SARS-CoV-2, Influenza & RSV (PCR) - Final Physical Exam Narrative General: Awake, alert, unable to answer orientation questions HEENT: Atraumatic, normocephalic Eyes: Anicteric Neck: Supple Respiratory: No overt wheezes or rhonchi, normal respiratory effort Cardiovascular: Regular rate and rhythm GI: Soft, nondistended Extremities: No significant peripheral edema Musculoskeletal: Patient with chronic contractures and scoliosis Neuro: Patient with CP and baseline neurological changes Skin: No rashes appreciated Psych: Unable to cooperate given mental status Assessment & Plan Assessment/Plan (1) Sepsis: (2) UTI (urinary tract infection): (3) Infection due to ESBL-producing Escherichia coli: PLAN: Plan # Sepsis secondary to 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 -ID consulted -Will continue Merrem at this time given sensitivity data - Likely DC early in the week with final antibiotic plan - Blood cultures growing 1 out of 2 coag negative staph, suspect contaminant, vancomycin discontinued -07/01: Patient has a PICC line due to poor access, will also likely need IV antibiotics on DC, ID consulted, likely DC tomorrow after antibiotic plan in place # Kidney stones - Patient with stones noted in her kidney and bladder with no evidence of obstruction at this time - Urology was consulted and evaluated, patient improving with antibiotics and supportive care so no acute intervention recommended at this time -07/01: Continue outpatient follow-up Chronic medical problems and/or problems not being actively addressed during today's encounter: #Type 2 diabetes mellitus -Glucose checks and sliding scale insulin # Cerebral palsy, chronic tracheostomy, PEG tube -Supportive care, continue home tube feeds and ventilation -Continue home baclofen and diazepam #Seizure disorder -Presently maintained on Trileptal -Continue home regimen # Chronic hypoxic respiratory failure -Continue inhalers -Continue home ventilation #DVT ppx: SCDs Shanice Ray MD Charges/Coding Visit Charges Inpatient E&M: 18517 Subs Hosp L1
[2025-07-01 16:46] LABS: Hematocrit 29.3 % (37-47); Hemoglobin 10.0 g/dL (12.0-15.0); Immature Granulocytes Count 0.080 X10^3/uL (0.0-0.0); Mean Corp Hgb Conc 34.1 g/dL (32-36); Mean Corpuscular Volume 92.4 fL (81-99); Mean Platelet Vol. 9.8 fl (6.2-12.0); NRBC Flagged by Analyzer 0 % (0-5); Platelet Count 263 K/mm3 (150-450); RBC Distribution Width CV 13.0 % (11.6-14.6); RBC Distribution Width SD 43.7 fl (35.1-43.9); Red Blood Count 3.17 M/mm3 (4.2-5.4); White Blood Count 5.7 K/mm3 (4.4-11.0)
[2025-07-01 17:50] LABS: Anion Gap 8 (5-15); BUN 4 mg/dL (4-19); BUN/Creat Ratio 21.6 RATIO (10-20); Calcium,Total 8.9 mg/dL (7.6-11.0); Carbon Dioxide 24.9 mmol/L (21.0-32.0); Chloride 99 mmol/L (98-108); Estimated Creatinine Clearance 282.01 ml/min (50-250); Glucose 140 mg/dL (70-99); Potassium 4.0 mmol/L (3.3-5.1)
[2025-07-01] MEDS: Insulin Glargine-YFGN 100 UNIT/ML Pen 20 UNIT SC (20:36)
[2025-07-02 04:00] VITALS: BP 107/68; PULSE 54; RESP 23; TEMP 36.2; O2SAT 100
[2025-07-02 04:06] LABS: Hematocrit 29.3 % (37-47); Hemoglobin 9.8 g/dL (12.0-15.0); Immature Granulocytes Count 0.040 X10^3/uL (0.0-0.0); Mean Corp Hgb Conc 33.4 g/dL (32-36); Mean Corpuscular Volume 92.7 fL (81-99); Mean Platelet Vol. 9.7 fl (6.2-12.0); NRBC Flagged by Analyzer 0 % (0-5); Platelet Count 239 K/mm3 (150-450); RBC Distribution Width CV 13.0 % (11.6-14.6); RBC Distribution Width SD 44.5 fl (35.1-43.9); Red Blood Count 3.16 M/mm3 (4.2-5.4); White Blood Count 6.0 K/mm3 (4.4-11.0)
[2025-07-02 04:46] LABS: Anion Gap 8 (5-15); BUN 4 mg/dL (4-19); BUN/Creat Ratio 16.6 RATIO (10-20); Calcium,Total 8.8 mg/dL (7.6-11.0); Carbon Dioxide 25.9 mmol/L (21.0-32.0); Chloride 104 mmol/L (98-108); Estimated Creatinine Clearance 268.58 ml/min (50-250); Glucose 115 mg/dL (70-99); Potassium 3.8 mmol/L (3.3-5.1)
[2025-07-02] MEDS: Meropenem 1 GM in 0.9% Normal Saline (100mL MB+) 100 ML IV ×3 (05:19→22:02)
[2025-07-02 06:58] VITALS: PULSE 65; RESP 18
[2025-07-02] MEDS: Budesonide Respules 0.5 MG/2 ML AMPUL.NEB. INHALATION ×2 (07:01→21:07)
[2025-07-02] MEDS: Albuterol 2.5 MG/3 ML VIAL.NEB. INHALATION ×2 (07:01→21:07)
[2025-07-02 07:40] VITALS: BMI 26.5
[2025-07-02] MEDS: NUT TX IMPAIRED DIGEST FXN 160 GM GT ×4 (08:35→17:15)
[2025-07-02] MEDS: OXCARBAZEPINE 300 MG/5 ML 480 MG GT ×2 (08:37→20:16)
--- NOTE | 2025-07-02 08:44 | PN.HOSP_ITS ---
Reason for Visit Chief Complaint: fever Subjective Subjective No new events. Objective Data Objective Data Vital Signs: Vital Signs Temp Pulse Resp BP Pulse Ox O2 Del Method O2 Flow Rate 36.2 C L 65 18 107/68 100 Mechanical Ventilator 3 07/02/25 04:00 07/02/25 06:58 07/02/25 06:58 07/02/25 04:00 07/02/25 04:00 07/02/25 06:58 07/02/25 06:58 FiO2 30 06/29/25 07:00 Oxygen Flow Rate (L/min) 3 Oxygen Delivery Method Mechanical Ventilator Weight: 49.9 kg Body Mass Index (BMI) 26.5 Intake & Output: Intake and Output for Last 24 Hours 06/30/25 07/01/25 07/02/25 23:59 23:59 23:59 Intake Total 3432.5 / 3432.5 1173.80 / 1173.80 90.75 / 90.75 Balance 3432.5 / 3432.5 1173.80 / 1173.80 90.75 / 90.75 Medical Nutrition Assessment Dietitian: Malnutrition Criteria Met Start: 06/29/25 09:48 Freq: Status: Active Protocol: Document 06/30/25 08:52 SLA (Rec: 06/30/25 08:52 SLA .07.07.7) Nutrition Malnutrition Evidence of Yes Malnutrition Exists Malnutrition (severe Acute Illness/Injury ): Evidenced By Suboptimal Energy Intake (Severe),Weight Loss (Severe) Clinical Problem Acute Disease or Injury Related Malnutrition Etiology related to inability to tolerate current tf as ordered - now receiving neocate iesha that she has been on for many years Signs/Symptoms as evidenced by pt only able to to tolerate ~77% of TF as ordered and 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 Continue to follow and monitor for changes in pt nutritional status and make additional rec as indicated . Lab / Micro Data 07/02/25 03:50 07/02/25 03:50 Labs: Laboratory Results - last 24 hr 07/01/25 11:43: POC Glucose 185 H 07/01/25 16:25: WBC 5.7, RBC 3.17 L, Hgb 10.0 L, Hct 29.3 L, MCV 92.4, MCH 31.5, MCHC 34.1, RDW Std Deviation 43.7, RDW Coeff of Anne 13.0, Plt Count 263, MPV 9.8, Immature Gran % (Auto) 1.400 H, Neut % (Auto) 57.1, Lymph % (Auto) 27.6, Bath % (Auto) 9.9, Eos % (Auto) 3.3, Baso % (Auto) 0.7, Absolute Neuts (auto) 3.2, Absolute Lymphs (auto) 1.57, Nucleated RBC % 0, Sodium 132 L, Potassium 4.0, Chloride 99, Carbon Dioxide 24.9, Anion Gap 8, BUN 4, Creatinine 0.20 L, E stim Creat Clear Calc 282.01 H, Est GFR (MDRD) Non-Af 156, BUN/Creatinine Ratio 21.6 H, Glucose 140 H, Calcium 8.9 07/01/25 17:55: POC Glucose 258 H 07/01/25 20:24: POC Glucose 128 H 07/02/25 03:50: WBC 6.0, RBC 3.16 L, Hgb 9.8 L, Hct 29.3 L, MCV 92.7, MCH 31.0, MCHC 33.4, RDW Std Deviation 44.5 H, RDW Coeff of Anne 13.0, Plt Count 239, MPV 9.7, Immature Gran % (Auto) 0.700, Neut % (Auto) 69.9, Lymph % (Auto) 19.4, Bath % (Auto) 6.5, Eos % (Auto) 3.0, Baso % (Auto) 0.5, Absolute Neuts (auto) 4.2, Absolute Lymphs (auto) 1.17, Nucleated RBC % 0, Sodium 138, Potassium 3.8, Chloride 104, Carbon Dioxide 25.9, Anion Gap 8, BUN 4, Creatinine 0.21 L, Estim Creat Clear Calc 268.58 H, Est GFR (MDRD) Non-Af 154, BUN/Creatinine Ratio 16.6, Glucose 115 H, Calcium 8.8 Micro: Microbiology 06/28/25 20:20 Blood Culture (Wb) - Left Hand Blood Culture - Preliminary No growth in 48 hours. 06/28/25 21:20 Blood Culture (Wb) - Left Hand Bacteria Detection (PCR) - Final Coag Negative Staph 06/28/25 21:20 Blood Culture (Wb) - Left Hand Blood Culture - Preliminary Coag Negative Staph 06/28/25 20:45 Urine Catheter - Catheter Urine Culture - Final ESBL Escherichia coli 06/28/25 20:15 Mucosa - Nose SARS-CoV-2, Influenza & RSV (PCR) - Final Physical Exam Const Constitutional Narrative: Awake. Opens eyes. Non-verbal. HEENT head/scalp atraumatic and moist oral mucous membranes Resp normal respiratory effort, no retractions, no use of accessory muscles and clear to auscultation bilaterally Cardio regular rate, regular rhythm, S1 normal heart sound and S2 normal heart sound GI normal to inspection, nondistended, normoactive bowel sounds, soft to palpation, non-tender and non-distended Extremity normal to inspection, full ROM and no clubbing, cyanosis or edema Neuro oriented x3, CN's II-XII intact bilaterally, moves all extremities and no focal motor deficits Sensorium / Orientation: awake, alert, oriented to person, oriented to place and oriented to time Assessment & Plan Assessment/Plan (1) Sepsis: (2) UTI (urinary tract infection): (3) Infection due to ESBL-producing Escherichia coli: PLAN: Plan Sepsis * POA. On admission: temp 38.1, HR 122, RR 24 * 2/2 UTI 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 * ID consulted * Will continue Merrem at this time given sensitivity data * Likely DC early in the week with final antibiotic plan * Blood cultures growing 1 out of 2 coag negative staph, suspect contaminant, vancomycin discontinued * 07/01: Patient has a PICC line due to poor access, will also likely need IV antibiotics on DC, ID consulted, likely DC tomorrow after antibiotic plan in place Kidney stones * Patient with stones noted in her kidney and bladder with no evidence of obstruction at this time * Urology was consulted and evaluated, patient improving with antibiotics and supportive care so no acute intervention recommended at this time * 07/01: Continue outpatient follow-up Chronic medical problems * Type 2 diabetes mellitus-Glucose checks and sliding scale insulin * Cerebral palsy, chronic tracheostomy, PEG tube-Supportive care, continue home tube feeds and ventilation-Continue home baclofen and diazepam * Seizure disorder-Presently maintained on Trileptal-Continue home regimen * Chronic hypoxic respiratory failure-Continue inhalers-Continue home ventilation DVT ppx: SCDs DW patient's mother at bedside. Charges/Coding Visit Charges Inpatient E&M: 71366 Subs Hosp L2
[2025-07-02] MEDS: DIAZEPAM 5 MG/5 ML 7 MG GT ×2 (09:15→20:23)
[2025-07-02] MEDS: Cholecalciferol (VIT D3) 25 MCG TABLET (1,000 UNITS) 50 MCG GT (10:21)
[2025-07-02] MEDS: Multivitamin/Minerals/Iron (9 mg/15 ml) Liquid GT (10:22)
[2025-07-02 10:45] VITALS: BP 112/81; PULSE 72; RESP 20; TEMP 36.3; O2SAT 100
[2025-07-02] MEDS: Potassium Chloride Oral Soln 20 MEQ/15 ML UDC 10 MEQ GT (12:22)
--- NOTE | 2025-07-02 12:45 | CASEMGMT ---
Received call from [facility] for update, can fax information to [phone] or call [phone] to provide updates.
[2025-07-02] MEDS: Lactobacillis Acidophilus 1 CAP GT (14:28)
[2025-07-02] MEDS: DIAZEPAM 5 MG/5 ML GT (14:29)
--- NOTE | 2025-07-02 16:06 | CASEMGMT ---
HIREN WILSON received script for IV antibiotics. Sent order to [facility], notified they are not able to deliver until end of day tomorrow. Notified hospitalist and Pt family. Will plan to deliver antibiotic tomorrow and DC home after receiving morning and afternoon antibiotic here. ID stated ok to miss PM antibiotic tomorrow evening. HIREN WILSON called [facility] to provide update.
--- NOTE | 2025-07-02 16:09 | PCM.PN.ID ---
Physical Exam Narrative Feeling better, picc in place, no fever Const alert and no apparent distress General Appearance: cooperative Resp normal air movement and clear to auscultation bilaterally Cardio regular rate and regular rhythm GI soft to palpation, non-tender and non-distended Skin no rashes or lesions noted ID ID: Route of nutrition/ use of supplements: [] Nutritional Intake: [] IV Site: [] Owens Catheter: [] Assessment & Plan Assessment/Plan (1) Renal calculi: (2) Sepsis: PLAN: No issues with meropenem in the past, had rash with ertapenem. Corrected allergy list. With h/o ESBL, will write for 6 more days outpt meropenem. Will follow, d/w primary team (3) UTI (urinary tract infection):
[2025-07-02 17:00] VITALS: BP 118/80; PULSE 63; RESP 22; TEMP 36.6; O2SAT 100
[2025-07-02] MEDS: Acetaminophen 650 MG/20 ML UDC 640 MG GT (17:07)
[2025-07-02 20:09] VITALS: BP 125/83; PULSE 85; RESP 16; TEMP 36.7; O2SAT 100
[2025-07-02] MEDS: Insulin Glargine-YFGN 100 UNIT/ML Pen 20 UNIT SC (20:22)
[2025-07-02 21:13] VITALS: PULSE 71; RESP 18
[2025-07-03 02:43] VITALS: BMI 27.8
[2025-07-03 03:40] VITALS: BP 107/85; PULSE 65; RESP 16; TEMP 36.7; O2SAT 100
[2025-07-03] MEDS: Meropenem 1 GM in 0.9% Normal Saline (100mL MB+) 100 ML IV ×2 (05:49→12:51)
[2025-07-03] MEDS: Albuterol 2.5 MG/3 ML VIAL.NEB. INHALATION (06:27)
[2025-07-03] MEDS: Budesonide Respules 0.5 MG/2 ML AMPUL.NEB. INHALATION (06:27)
[2025-07-03 06:28] VITALS: PULSE 71; RESP 18; O2SAT 100
[2025-07-03] MEDS: NUT TX IMPAIRED DIGEST FXN 160 GM GT ×3 (08:17→14:47)
[2025-07-03] MEDS: OXCARBAZEPINE 300 MG/5 ML 480 MG GT (08:18)
[2025-07-03] MEDS: DIAZEPAM 5 MG/5 ML 7 MG GT (08:22)
--- NOTE | 2025-07-03 08:32 | PN.HOSP_ITS ---
Reason for Visit Chief Complaint: fever Subjective Subjective Feeling well. PICC line placed. Uneventful night per her mother. Objective Data Objective Data Vital Signs: Vital Signs Temp Pulse Resp BP Pulse Ox O2 Del Method O2 Flow Rate 36.7 C 71 18 107/85 H 100 Mechanical Ventilator 3 07/03/25 03:40 07/03/25 06:28 07/03/25 06:28 07/03/25 03:40 07/03/25 06:28 07/03/25 06:28 07/03/25 06:28 FiO2 30 06/29/25 07:00 Oxygen Flow Rate (L/min) 3 Oxygen Delivery Method Mechanical Ventilator Weight: 52.4 kg Body Mass Index (BMI) 27.8 Intake & Output: Intake and Output for Last 24 Hours 07/01/25 07/02/25 07/03/25 23:59 23:59 23:59 Intake Total 1173.80 / 1173.80 1040.75 / 1040.75 100 / 100 Output Total 0 / 0 Balance 1173.80 / 1173.80 1040.75 / 1040.75 100 / 100 Medical Nutrition Assessment Dietitian: Malnutrition Criteria Met Start: 06/29/25 09:48 Freq: Status: Active Protocol: Document 06/30/25 08:52 SLA (Rec: 06/30/25 08:52 SLA 10..25.7) Nutrition Malnutrition Evidence of Yes Malnutrition Exists Malnutrition (severe Acute Illness/Injury ): Evidenced By Suboptimal Energy Intake (Severe),Weight Loss (Severe) Clinical Problem Acute Disease or Injury Related Malnutrition Etiology related to inability to tolerate current tf as ordered - now receiving neocate iesha that she has been on for many years Signs/Symptoms as evidenced by pt only able to to tolerate ~77% of TF as ordered and 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 Continue to follow and monitor for changes in pt nutritional status and make additional rec as indicated . Lab / Micro Data 07/02/25 03:50 07/02/25 03:50 Labs: Laboratory Results - last 24 hr 07/02/25 12:19: POC Glucose 225 H 07/02/25 18:19: POC Glucose 199 H 07/02/25 20:21: POC Glucose 156 H Micro: Microbiology 06/28/25 20:20 Blood Culture (Wb) - Left Hand Blood Culture - Preliminary No growth in 48 hours. 06/28/25 21:20 Blood Culture (Wb) - Left Hand Bacteria Detection (PCR) - Final Coag Negative Staph 06/28/25 21:20 Blood Culture (Wb) - Left Hand Blood Culture - Preliminary Coag Negative Staph 06/28/25 20:45 Urine Catheter - Catheter Urine Culture - Final ESBL Escherichia coli 06/28/25 20:15 Mucosa - Nose SARS-CoV-2, Influenza & RSV (PCR) - Final Physical Exam Const no apparent distress Constitutional Narrative: breathing comfortably on the vent. neck extended with head turned to the left. HEENT head/scalp atraumatic and moist oral mucous membranes Resp normal respiratory effort and no retractions Assessment & Plan Assessment/Plan (1) Sepsis: (2) UTI (urinary tract infection): (3) Infection due to ESBL-producing Escherichia coli: PLAN: Plan Sepsis * POA. On admission: temp 38.1, HR 122, RR 24 * 2/2 UTI 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 * ID consulted * Will continue Merrem at this time given sensitivity data * Likely DC early in the week with final antibiotic plan * Blood cultures growing 1 out of 2 coag negative staph, suspect contaminant, vancomycin discontinued * 07/01: Patient has a PICC line due to poor access, will also likely need IV antibiotics on DC, ID consulted, likely DC tomorrow after antibiotic plan in place * Plan for 6 more days of meropenem. Kidney stones * Patient with stones noted in her kidney and bladder with no evidence of obstruction at this time * Urology was consulted and evaluated, patient improving with antibiotics and supportive care so no acute intervention recommended at this time * 07/01: Continue outpatient follow-up Chronic medical problems * Type 2 diabetes mellitus-Glucose checks and sliding scale insulin * Cerebral palsy, chronic tracheostomy, PEG tube-Supportive care, continue home tube feeds and ventilation-Continue home baclofen and diazepam * Seizure disorder-Presently maintained on Trileptal-Continue home regimen * Chronic hypoxic respiratory failure-Continue inhalers-Continue home ventilation DVT ppx: SCDs DW patient's mother at bedside.
[2025-07-03 10:00] VITALS: BP 119/71; PULSE 82; RESP 14; TEMP 36.8; O2SAT 100
[2025-07-03] MEDS: Multivitamin/Minerals/Iron (9 mg/15 ml) Liquid GT (10:04)
[2025-07-03] MEDS: Cholecalciferol (VIT D3) 25 MCG TABLET (1,000 UNITS) 50 MCG GT (10:04)
--- NOTE | 2025-07-03 10:36 | CASEMGMT ---
HIREN WILSON received acceptance from [facility]. waiting of cost of medication. HIREN WILSON into pt room, pt mom states she has given this IV antibiotic in the past and feels comfortable administering it at home. Denies wanting training. HIREN WILSON notified [facility].
--- NOTE | 2025-07-03 10:49 | CASEMGMT ---
HIREN WILSON received notification from [facility] - medication is 100% covered.
--- NOTE | 2025-07-03 11:15 | DS.PCM_ITS ---
Providers Date of Admission: 06/28/25 Primary Care Physician: Dr. Sandra Bermudez DO Consultations 06/28/25 23:09 Consult: [employer] / Pulmonary Medicine Routine Consulting Provider: Intensivists/Pulmonary Med Reason for Consult: sepsis due to UTI and recurrent kidney stones EMERGENT Consult: No Notified: Yes Date Notified: 06/28/25 Time Notified: 23:43 Method of Notification: TIQR 06/29/25 08:09 Consult: Urology Routine Consulting Provider: Samaria Anaya Reason for Consult: Nephrolithiasis EMERGENT Consult: No Notified: Yes Date Notified: 06/29/25 Time Notified: 08:10 Method of Notification: Text 06/29/25 08:11 Consult: Infectious Disease Routine Consulting Provider: Rafa Bettencourt Reason for Consult: Recurrent UTIs with ESBL EMERGENT Consult: No Notified: Yes Date Notified: 06/29/25 Time Notified: 08:12 Method of Notification: Text Reason For Visit: SEPSIS DUE TO UTI AND RECURRENT KIDNEY STONES Diagnosis Discharge Diagnosis (1) Sepsis: Status: Acute Code(s): A41.9 - Sepsis, unspecified organism (2) UTI (urinary tract infection): Status: Resolved Code(s): N39.0 - Urinary tract infection, site not specified (3) Infection due to ESBL-producing Escherichia coli: Status: Acute Code(s): A49.8 - Other bacterial infections of unspecified site; Z16.12 - Extended spectrum beta lactamase (ESBL) resistance Plan Sepsis * POA. On admission: temp 38.1, HR 122, RR 24 * 2/2 UTI 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 * ID consulted * Possibly associated with straight catheterization. * Will continue Merrem at this time given sensitivity data * Likely DC early in the week with final antibiotic plan * Blood cultures growing 1 out of 2 coag negative staph, suspect contaminant, vancomycin discontinued * 07/01: Patient has a PICC line due to poor access, will also likely need IV antibiotics on DC, ID consulted, likely DC tomorrow after antibiotic plan in place * Plan for 6 more days of meropenem. Kidney stones * Patient with stones noted in her kidney and bladder with no evidence of obstruction at this time * Urology was consulted and evaluated, patient improving with antibiotics and supportive care so no acute intervention recommended at this time * 07/01: Continue outpatient follow-up Chronic medical problems * Type 2 diabetes mellitus-Glucose checks and sliding scale insulin * Cerebral palsy, chronic tracheostomy, PEG tube-Supportive care, continue home tube feeds and ventilation-Continue home baclofen and diazepam * Seizure disorder-Presently maintained on Trileptal-Continue home regimen * Chronic hypoxic respiratory failure-Continue inhalers-Continue home ventilation DW patient's mother at bedside. Medications at Discharge Home Medications baclofen 20 mg tablet 30 mg G-tube TID muscle spasms 09/02/13 oxcarbazepine 300 mg/5 mL (60 mg/mL) oral suspension (Trileptal) 8 ml G-tube BID seizure 08/28/17 diazepam 5 mg/5 mL (1 mg/mL) oral solution 5 mg feeding tube DAILY@1400 spasms 05/20/21 diazepam 5 mg/5 mL (1 mg/mL) oral solution 7 mg feeding tube BID spasms 05/20/21 ascorbic acid (vitamin C) 500 mg/5 mL oral syrup 500 mg feeding tube BID SUPPLEMENT 12/12/21 cholecalciferol (vitamin D3) 50 mcg (2,000 unit) capsule 50 mcg feeding tube DAILY SUPPLEMENT 12/12/21 ibuprofen 100 mg/5 mL oral suspension 400 mg PO Q6H PRN Pain 12/12/21 sodium chloride 0.9 % for nebulization 3 - 6 ml inhalation Q2H PRN Congestion 12/12/21 levalbuterol HCl 1.25 mg/3 mL solution for nebulization 1.25 mg (3 mL) inhalation BID BREATHING #90 mL 01/16/22 acetaminophen 160 mg/5 mL oral liquid 640 mg PO Q4H PRN pain/fever 03/31/22 acidophilus 25 million cell-pectin, citrus 100 mg tablet 1 tab G-tube DAILY supplement 03/31/22 carbamide peroxide 6.5 % ear drops (Debrox) 5 drp EACH EAR DAILY PRN Ear Wax 03/31/22 nystatin 100,000 unit/gram topical powder 1 applic topical BID PRN redness 03/31/22 ferrous sulfate 15 mg iron (75 mg)/mL oral syringe (ORAL USE) 5 ml feeding tube MOTH supplement 08/24/22 nutritional supplements 1 ea PO BID Check with primary doctor 08/29/22 blood sugar diagnostic (True Metrix Pro Test Strip) #400 ea 02/23/23 fluticasone propionate 44 mcg/actuation HFA aerosol inhaler (Flovent HFA) 2 puff inhalation BID breathing #10.6 grams 05/23/24 levalbuterol HCl 1.25 mg/3 mL solution for nebulization 1.25 mg (3 mL) inhalation Q4H PRN sob #150 mL 05/23/24 insulin glargine 100 unit/mL (3 mL) subcutaneous pen (Basaglar KwikPen U-100 Insulin) 20 unit (0.2 mL) subcut QPM sugar #15 mL 10/24/24 artificial tears(hypromellose) 0.3 % eye gel (GenTeal Tears Severe) 1 drp EACH EYE BID PRN dry eyes 11/02/24 bacitracin 500 unit/gram topical ointment 1 applic topical 4X/DAY PRN ABRASIONS 11/02/24 guaifenesin 100 mg/5 mL oral liquid 200 mg G-tube Q4H PRN thick secretions 11/02/24 honey 80 % topical gel (Manuka Honey) 1 applic topical BID PRN wound healing 11/02/24 hydrocortisone 1 % topical cream (Ala-Brown) 1 applic topical 4X/DAY PRN itching 11/02/24 methenamine hippurate 1 gram tablet 1 g PO BID infection 11/02/24 Held on 07/03/25. Instructions: Resume on 07/09/25. zpszdiel-cnid-gvqgaar gluconate 9 mg iron/15 mL (15 mL) oral liquid (Centrum) 5 ml PO DAILY supplement 11/02/24 potassium chloride 20 mEq/15 mL oral liquid 10 meq PO DAILY supplement 11/02/24 sodium chloride 0.9 % topical spray 1 applic topical PRN trach care 11/02/24 trolamine salicylate 10 % topical cream (Alcis) 1 applic topical 4X/DAY PRN muscle pain 11/02/24 pen needle, diabetic 32 gauge x #360 ea 01/29/25 lancets 30 gauge (Embrace Lancets) #200 ea 02/21/25 blood sugar diagnostic (True Metrix Glucose Test Strip) #150 ea 04/03/25 lancets 33 gauge ([employer] Delica Plus Lancet) #200 ea 04/17/25 lancing device with lancets kit ([place] Kento Electronic Plus Lancing Device kit) #1 ea 04/17/25 blood sugar diagnostic (OneTouch Ultra Test strips) #450 ea 05/11/25 blood-glucose meter (OneTouch Ultra2 Meter) #1 ea 05/11/25 OXYGEN - Supplemental ([facility] USE ONLY) 05/21/25 insulin aspart U-100 100 unit/mL (3 mL) subcutaneous pen (Novolog FlexPen U-100 Insulin aspart) 18 unit (0.18 mL) subcut .qid sugar 90 days #33 mL 05/28/25 cetirizine 5 mg/5 mL oral solution 10 mg PO DAILY PRN allergy symptoms 06/28/25 nut.tx.impaired digest fxn 13 gram-421 kcal/100 g oral powder 296 ea PO 4X/DAY 06/28/25 ventilator airway protection 06/29/25 meropenem 1 gram intravenous solution 1 g IV Q8 6 days #18 ea 07/02/25 Hospital Course Operations None Procedures PICC line placement Medical Records Data Medical Nutrition Assessment Dietitian: Malnutrition Criteria Met Start: 06/29/25 09:48 Freq: Status: Active Protocol: Document 06/30/25 08:52 SLA (Rec: 06/30/25 08:52 SLA [id number]) Nutrition Malnutrition Evidence of Yes Malnutrition Exists Malnutrition (severe Acute Illness/Injury ): Evidenced By Suboptimal Energy Intake (Severe),Weight Loss (Severe) Clinical Problem Acute Disease or Injury Related Malnutrition Etiology related to inability to tolerate current tf as ordered - now receiving neocate rell that she has been on for many years Signs/Symptoms as evidenced by pt only able to to tolerate ~77% of TF as ordered and 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 Continue to follow and monitor for changes in pt nutritional status and make additional rec as indicated . Weight / BMI Weight Weight: 52.4 kg Body Mass Index (BMI) 27.8 ABG / Lab / Microbiology Data 07/02/25 03:50 07/02/25 03:50 Laboratory: Laboratory Results - last 24 hr 07/02/25 12:19: POC Glucose 225 H 07/02/25 18:19: POC Glucose 199 H 07/02/25 20:21: POC Glucose 156 H 07/03/25 08:09: POC Glucose 92 Microbiology: Microbiology 06/28/25 20:20 Blood Culture (Wb) - Left Hand Blood Culture - Preliminary No growth in 48 hours. 06/28/25 21:20 Blood Culture (Wb) - Left Hand Bacteria Detection (PCR) - Final Coag Negative Staph 06/28/25 21:20 Blood Culture (Wb) - Left Hand Blood Culture - Preliminary Coag Negative Staph 06/28/25 20:45 Urine Catheter - Catheter Urine Culture - Final ESBL Escherichia coli 06/28/25 20:15 Mucosa - Nose SARS-CoV-2, Influenza & RSV (PCR) - Final D/C Instructions DC O2, CPAP, BIPAP Needs Home O2 Discharge instructions: No Meaningful Use Info Meaningful Use Meaningful Use Diagnoses (Choose all that apply): None applicable Discharge Plan Admission Admit Date/Time: 06/28/25 22:28 Primary Reason for Your Visit: UTI Attending Provider: Prosper Gomez Primary Care Provider: Sandra Bermudez Consulting Providers: Gem Pino; Rafa Bettencourt; Duane Han; Tom Garcia; Lawrence Weiner; Landry Valenzuela; Kane Woodall; Deyanira Correia; Merritt Patrick; Alivia Patrick; Oz Longoria; January Calix; Kumar Guadarrama; Rasheed Knight; Janet Canada; Klaus Samano; Viktor oLpez; Kevin Wooten; Ameena Isabel; Alyse Cohn; Domenica Garcia; Isa Galvez; Ricky Garibay; Edson Aceves; Sanam Nolan; Letitia Kyle; Christopher Floyd; Wilfrido Padilla; Sanam Mahan; Maximino Levin; Terrance Lopez; Alessandro Villar; Raina Wilde; Cali Pulido; Kolton Rivera; Kari Harris; Han Tom; Adriane Miner; Juanita Glasgow; Valentín Antonio; Christine,Gilles; James Gandara; Ben Marcial; Reji Theodore; Samaria Anaya; Kane Dupree; Shanice Ray Discharge Orders/Prescriptions Prescriptions: New meropenem 1 gram Recon Soln 1 g IV Q8 6 Days Qty: 18 0RF Rx Instructions: Dx: esbl infection. Routine midline care per protocol. Continued oxcarbazepine [Trileptal] 300 mg/5 mL (60 mg/mL) suspension 8 ml GT BID insulin glargine [Basaglar KwikPen U-100 Insulin] 100 unit/mL (3 mL) insulin pen 20 unit subcut QPM Qty: 15 2RF baclofen 20 MG tablet 30 mg GT TID Patient Comments: pain ferrous sulfate 15 mg iron (75 mg)/mL syringe 5 ml feeding tube MOTH Rx Instructions: TWICE WEEKLY ON WEDNESDAY AND WEDNESDAY diazepam 5 mg/5 mL (1 mg/mL) Solution 7 mg feeding tube BID diazepam 5 mg/5 mL (1 mg/mL) Solution 5 mg feeding tube DAILY@1400 ibuprofen 100 mg/5 mL Suspension 400 mg PO Q6H PRN (Reason: Pain) sodium chloride 0.9 % Solution For Nebulization 3 - 6 ml INHALATION Q2H PRN (Reason: Congestion) ascorbic acid (vitamin C) 500 mg/5 mL Syrup 500 mg feeding tube BID cholecalciferol (vitamin D3) 50 mcg (2,000 unit) Capsule 50 mcg feeding tube DAILY acetaminophen 160 mg/5 mL Liquid 640 mg PO Q4H PRN (Reason: pain/fever) Debrox 6.5 % Drops 5 drp EACH EAR DAILY PRN (Reason: Ear Wax) nystatin 100,000 unit/gram Powder 1 applic TOPICAL BID PRN (Reason: redness) acidophilus-pectin, citrus 25 million cell -100 mg tablet 1 tab G-tube DAILY Rx Instructions: Hwnq-zyd-afdxmgr nutritional supplements Powder 1 ea PO BID Rx Instructions: GIVEN VIIA G-TUBE BID hydrocortisone [Ala-Brown] 1 % cream 1 applic topical 4X/DAY PRN (Reason: itching) bacitracin 500 unit/gram ointment 1 applic topical 4X/DAY PRN (Reason: ABRASIONS) Manuka Honey 80 % gel 1 applic topical BID PRN (Reason: wound healing) potassium chloride 20 mEq/15 mL liquid 10 meq PO DAILY geleornd-vdk-rgyvyei gluconate [Centrum] 9 mg iron/ 15 mL (15 mL) liquid 5 ml PO DAILY guaifenesin 100 mg/5 mL liquid 200 mg GT Q4H PRN (Reason: thick secretions) trolamine salicylate [Alcis] 10 % cream 1 applic topical 4X/DAY PRN (Reason: muscle pain) GenTeal Tears Severe Gel 0.3 % gel 1 drp EACH EYE BID PRN (Reason: dry eyes) sodium chloride 0.9 % aerosol,spray 1 applic topical PRN Rx Instructions: INSTILL 30 DROPS OR 1ML EVERY HOUR NEEDED INTO TRACH TO THIN SECRETIONS (DME) OXYGEN - Supplemental ([facility] USE ONLY) Gas See Rx Instructions .ROUTE Patient Comments: per patient's father, 3lpm bleed in to ventilator Rx Instructions: As directed nut.tx.impaired digest fxn 13-421 gram-kcal powder 296 ea PO 4X/DAY Rx Instructions: not tolerating. family still increasing dose cetirizine 5 mg/5 mL solution 10 mg PO DAILY PRN (Reason: allergy symptoms) ventilator Patient Comments: Home Ventilator unit with 3 L bleed in oxygen, DME: [employer]. Home ventilator settings SIMV, RR14, Vt 240, PEEP +15 HP 48, LP 5 levalbuterol HCl 1.25 mg/3 mL solution for nebulization 1.25 mg INHALATION BID Qty: 90 5RF (DME) True Metrix Pro Test Strip Strip See Rx Instructions .ROUTE .MEDSUPPLY Qty: 400 3RF Rx Instructions: 4 times daily, plus extra for mental status change fluticasone propionate [Flovent HFA] 44 mcg/actuation HFA aerosol inhaler 2 puff INHALATION BID Qty: 10.6 11RF Rx Instructions: administer with spacer levalbuterol HCl 1.25 mg/3 mL solution for nebulization 1.25 mg INHALATION Q4H PRN (Reason: sob) Qty: 150 11RF (DME) pen needle, diabetic 32 gauge x 5/32 needle See Rx Instructions .ROUTE .MEDSUPPLY Qty: 360 3RF Rx Instructions: 5 times daily (DME) lancets [Embrace Lancets] 30 gauge misc See Rx Instructions .Route Qty: 200 8RF Rx Instructions: 4x/day (DME) True Metrix Glucose Test Strip Strip See Rx Instructions .Route Qty: 150 12RF Rx Instructions: 5 times per day with tube feedings (DME) lancets [OneTouch Delica Plus Lancet] 33 gauge misc See Rx Instructions .Route Qty: 200 8RF Rx Instructions: 5 times daily (DME) lancing device with lancets [OneTouch Delica Plus Lanc Dev] Kit See Rx Instructions .Route Qty: 1 0RF Rx Instructions: As directed (DME) OneTouch Ultra Test Strip See Rx Instructions .Route Qty: 450 3RF Rx Instructions: 5 times daily with tube feeds (DME) blood-glucose meter [OneTouch Ultra2 Meter] Misc See Rx Instructions .Route Qty: 1 0RF Rx Instructions: As directed insulin aspart U-100 [Novolog FlexPen U-100 Insulin] 100 unit/mL (3 mL) insulin pen 18 unit subcut .qid 90 Days Qty: 33 3RF Rx Instructions: 160 +3, 201 +5, 241 +8, 280 +10 This is sliding scale, caregiver understands how to administer. Please dispense whichever fasting insulin is covered by insurance Held methenamine hippurate 1 gram tablet 1 g PO BID Hold Instructions: Resume on 07/09/25. Referrals / Follow Up: Sandra Bermudez DO [Primary Care Provider, Internal Medicine] Disposition Disposition (needs filled in before D/C Order can be placed): Home Health Service Charges/Coding Visit Charges Inpatient E&M: 22012 Disch Hosp
--- NOTE | 2025-07-03 12:06 | PHA.DC_ITS ---
Pharmacy [facility] Counseling Pharmacy Service has performed discharge medication reconciliation and counseling for this patient. 1. MEROPENEM 1GMIV Q8 2. HOLD METHENAMINE UNTIL MEROPENEM COMPLETE The patient's discharge medication list was reviewed for discrepancies and discrepancies were resolved. The patient's mother was counseled on the following discharge medications and changes in medications for homegoing were reviewed. The Reason for Use, instructions for use, and potential side effects were reviewed for all new medications. The patient's mother's questions regarding all of their medications were answered. The patient's mother was able to verbally demonstrate an understanding of their discharge medications.
[2025-07-03] MEDS: Potassium Chloride Oral Soln 20 MEQ/15 ML UDC 10 MEQ GT (12:54)
[2025-07-03] MEDS: Fluconazole Suspension 40 MG/ML 35 ML Bottle 200 MG NG (14:46)
--- NOTE | 2025-07-03 14:47 | CASEMGMT ---
RN KATIE sent DC instructions to [facility] via fax and to [facility] via [employer]. Called physicians for transport - will berry picker pt at 4:30 pm after pt's afternoon antibiotics are completed. [facility] will deliver medications to pt santiago john. RN and Family notified of berry picker time. Pt mom denies questions at this time.
--- NOTE | 2025-07-03 14:49 | CASEMGMT ---
HIREN CM provided transport form to legal secretary.
[2025-07-03] MEDS: DIAZEPAM 5 MG/5 ML GT (14:54)
[2025-07-03 17:36] VITALS: BP 130/76; PULSE 68; RESP 19; TEMP 36.7; O2SAT 100
== END 2025-07-03 18:59 | disposition home health service (06) | DRG 698 ==
LOC: ED 22:31 → ICU 22:44 → PCU 06-29 17:59
PROVIDERS: Internal Medicine; Admitting Provider Student in an Organized Health Care Education/Training Program; Emergency Provider Emergency Medicine; PCP Internal Medicine
DX: T83.518A Infection and inflammatory reaction due to other urinary catheter, initial encounter (principal); A41.51 Sepsis due to Escherichia coli [E. coli]; E43 Unspecified severe protein-calorie malnutrition; Z99.11 Dependence on respirator [ventilator] status; G80.2 Spastic hemiplegic cerebral palsy; J96.11 Chronic respiratory failure with hypoxia; N39.0 Urinary tract infection, site not specified; Z16.12 Extended spectrum beta lactamase (ESBL) resistance; Z93.0 Tracheostomy status; E11.9 Type 2 diabetes mellitus without complications; B95.7 Other staphylococcus as the cause of diseases classified elsewhere; Z66 Do not resuscitate; G40.909 Epilepsy, unspecified, not intractable, without status epilepticus; Z93.1 Gastrostomy status; Z79.4 Long term (current) use of insulin; N20.0 Calculus of kidney; N32.89 Other specified disorders of bladder; Z68.24 Body mass index [BMI] 24.0-24.9, adult; Z86.14 Personal history of Methicillin resistant Staphylococcus aureus infection
CPT/HCPCS: 31720; 36569; 71045; 74176; 80048; 80053; 81001; 82962; 83605; 83735; 84100; 85025; 87040; 87077; 87086; 87088; 87149; 87186; 87631; 94640; 97802; 97803; 99285; J2185; A4216

== ENCOUNTER → 2025-08-01 | Outpatient (CLI) | payer MEDICARE, MEDICAID, SELFPAY ==
[2025-08-01 10:51] LABS: Hematocrit 33.5 % (37-47); Hemoglobin 11.2 g/dL (12.0-15.0); Immature Granulocytes Count 0.020 X10^3/uL (0.0-0.0); Mean Corp Hgb Conc 33.4 g/dL (32-36); Mean Corpuscular Volume 92.3 fL (81-99); Mean Platelet Vol. 10.3 fl (6.2-12.0); NRBC Flagged by Analyzer 0 % (0-5); Platelet Count 197 K/mm3 (150-450); RBC Distribution Width CV 12.9 % (11.6-14.6); RBC Distribution Width SD 44.1 fl (35.1-43.9); Red Blood Count 3.63 M/mm3 (4.2-5.4); White Blood Count 7.7 K/mm3 (4.4-11.0)
[2025-08-01 11:59] LABS: AST(SGOT) 15 U/L (<=31); Alanine Aminotransfer ALT/SGPT 13 U/L (<=34); Albumin, Serum 4.2 g/dL (3.5-5.0); Alkaline Phosphatase 67 U/L (35-104); Anion Gap 14 (5-15); BUN 5 mg/dL (4-19); BUN/Creat Ratio 16.7 RATIO (10-20); Calcium,Total 9.3 mg/dL (7.6-11.0); Carbon Dioxide 22.1 mmol/L (21.0-32.0); Chloride 91 mmol/L (98-108); Globulin 3.0 g/dL (2.2-4.2); Glucose 178 mg/dL (70-99); Potassium 3.9 mmol/L (3.3-5.1)
== END | disposition home or self-care (01) ==
LOC: LAB 09:31
PROVIDERS: PCP Internal Medicine
DX: G40.909 Epilepsy, unspecified, not intractable, without status epilepticus (principal)
CPT/HCPCS: 36415; 80053; 85025

== ENCOUNTER → 2025-08-10 | Outpatient (CLI) | payer MEDICARE, MEDICAID, SELFPAY ==
[2025-08-10 10:33] LABS: Hematocrit 41.2 % (37-47); Hemoglobin 13.6 g/dL (12.0-15.0); Immature Granulocytes Count 0.030 X10^3/uL (0.0-0.0); Mean Corp Hgb Conc 33.0 g/dL (32-36); Mean Corpuscular Volume 95.2 fL (81-99); Mean Platelet Vol. 10.0 fl (6.2-12.0); NRBC Flagged by Analyzer 0 % (0-5); Platelet Count 271 K/mm3 (150-450); RBC Distribution Width CV 12.8 % (11.6-14.6); RBC Distribution Width SD 44.8 fl (35.1-43.9); Red Blood Count 4.33 M/mm3 (4.2-5.4); White Blood Count 6.6 K/mm3 (4.4-11.0)
[2025-08-10 11:04] LABS: AST(SGOT) 19 U/L (<=31); Alanine Aminotransfer ALT/SGPT 16 U/L (<=34); Albumin, Serum 4.6 g/dL (3.5-5.0); Alkaline Phosphatase 75 U/L (35-104); Anion Gap 15 (5-15); BUN 5 mg/dL (4-19); BUN/Creat Ratio 13.0 RATIO (10-20); Calcium,Total 9.8 mg/dL (7.6-11.0); Carbon Dioxide 23.2 mmol/L (21.0-32.0); Chloride 98 mmol/L (98-108); Globulin 3.3 g/dL (2.2-4.2); Glucose 161 mg/dL (70-99); Potassium 4.1 mmol/L (3.3-5.1)
[2025-08-10 12:39] LABS: Cholesterol 199 mg/dL (<=200); Low Density Lipoprotein Calc. 106 mg/dL; Triglycerides 311 mg/dL; Very Low Density Lipoprotein 62 mg/dL (5-40); cholesterol:hdl ratio screen 4.95
[2025-08-12 15:07] LABS: Vitamin D 1,25-Dihydroxy 49.3 pg/mL (24.8-81.5)
== END | disposition home or self-care (01) ==
LOC: LAB 08:45
PROVIDERS: PCP Internal Medicine; Visit Provider Internal Medicine
DX: E11.69 Type 2 diabetes mellitus with other specified complication (principal); E78.49 Other hyperlipidemia; Z86.39 Personal history of other endocrine, nutritional and metabolic disease; E55.9 Vitamin D deficiency, unspecified
CPT/HCPCS: 36415; 80053; 80061; 82652; 84443; 85025